=== PATIENT | male | born 1950 | race Caucasian/White ===

== ENCOUNTER 2021-04-14 14:12 | Outpatient (CLI) | payer MEDICARE, BC, SELFPAY ==
--- NOTE | ~2021-04-14 | XR_ITS ---
XR abdomen/kub 1V 04/14/2021 14:29 Indication: Gross hematuria Procedure: KUB Comparison: No prior studies for comparison. Findings: Bowel gas pattern is nonobstructive. Moderate colonic fecal loading. Moderate lumbar spondy losis. There are degenerative changes of the hips. No suspicious calcifications to suggest nephrolith iasis. Impression: 1: No acute abdominal abnormality. Reviewed, dictated and finalized at location A. Impression: 1: No acute abdominal abnormality.
--- NOTE | ~2021-04-14 | CT_ITS ---
EXAMINATION: CT abdomen pelvis wo/w con DATE: 04/14/2021 15:22 INDICATION: Gross hematuria. Upper abdominal pain. TECHNIQUE: Computed tomography (CT) of the abdomen and pelvis was performed without and with intraven ous contrast using a total of 130 mL Omnipaque-350 intravenous contrast with a double-bolus technique for simultaneous opacification of the renal parenchyma and renal collecting system. Automated exposu re control and iterative reconstruction technique were employed. The dose-length product was 2284.14 mGy-cm. COMPARISON: CT abdomen 05/04/2006 FINDINGS: The visualized portions of the lung bases demonstrate mild atelectasis. A calcified right lung nodule is consistent with old granulomatous disease. No pleural effusion. The heart size is normal. No alexey cardial effusion. There are coronary artery calcifications. The liver, gallbladder, pancreas, and adr enal glands are normal. Calcifications in the spleen are consistent with old granulomatous disease. T here are cysts in the kidneys measuring up to 5.8 cm on the left. There is a 3 mm stone in right kidn ey. The right ureter is not well opacified distally, but is normal. The left ureter is well opacified and is normal. The prostate is moderately enlarged. There is diffuse bladder wall thickening with so me areas of nodularity. At the left posterior aspect of the bladder, there is a 4.5 x 3.7 cm frond-li ke mass. There is a right inguinal hernia containing fat. There are no pathologically enlarged lymph nodes. There is no free intraperitoneal fluid. There is severe lumbar spondylosis and mild thoracic s pondylosis. IMPRESSION: 1. Bladder mass, consistent with urothelial carcinoma. 2. 3 mm nonobstructing right kidney stone. Reviewed, dictated and finalized at location B.
[2021-04-14 15:02] LABS: Estimated Glomerular Filt Rate 37
== END 2021-04-14 14:13 | disposition home or self-care (01) ==
PROVIDERS: PCP Family Medicine; Visit Provider Nurse Practitioner Adult Health
DX: R31.0 Gross hematuria (principal); N20.0 Calculus of kidney
CPT/HCPCS: 74018; 74178; Q9967

== ENCOUNTER 2021-06-05 01:56 | Day surgery (SDC) | payer MEDICARE, BC, SELFPAY ==
--- NOTE | 2021-06-02 08:41 | P.HP_ITS ---
History of Present Illness History of Present Illness Consent: Risks, benefits, and alternatives have been discussed and questions answered. Patient agrees to proceed with procedure. Chief complaint: large bladder tumors Narrative: Ryan Delgado is a 70 year old male with a history of smoking who recently presented with gross hematuria. CT scan of the abdomen and pelvis with without contrast showed small obstructing bilateral kidney stones and simple renal cysts, without other significant upper tract findings. Both cystoscopy and CT scan, however, showed large neoplasm in the left posterior bladder wall. After discussion of options he elected to proceed with TURP. He is aware the risks including, but not limited to, adverse cardiopulmonary events, postoperative bleeding, compromise to the integrity of his bladder with urinary extravasation and failure to completely resect the neoplasm. Review of Systems Cardiovascular: Cardiovascular: Denies chest pain, Denies lightheadedness, Denies palpitations and Denies dyspnea Respiratory: Respiratory: Denies dyspnea Gastrointestinal: Gastrointestinal: Denies diarrhea, Denies nausea and Denies vomiting Genitourinary: Genitourinary: Denies hematuria and Denies dysuria Endocrine: Endocrine: Denies palpitations [facility] Family History Family History Father Acute myocardial infarction, Onset Age: 57 Patient's father is Mother Patient's mother is Social History Social History Smoking status: Never smoker Second hand tobacco smoke exposure: No Alcohol intake: never Meds Home Medications and Allergies Allergies Allergy/AdvReac Type Severity Reaction Status Date / Time Sulfa (Sulfonamide Allergy Mild Unknown Verified 09/29/18 10:28 Antibiotics) sulfanilamide Allergy Unknown Verified 07/11/10 17:55 sulfur dioxide Allergy Unknown Verified 05/18/13 13:57 Exam Const: General: no acute distress Resp: Effort & Inspection: normal respiratory effort GI: Inspection: non-distended GI Palp: No abdominal tenderness and No Guarding due to palpation present (GI) Auscultation: normal bowel sounds Assessment and Plan Assessment and plan (1) Cancer of overlapping sites of bladder: Code(s): C67.8 - Malignant neoplasm of overlapping sites of bladder Status: Acute Assessment and Plan: * TURBT
[2021-06-02 10:50] VITALS: BMI 30.4
[2021-06-05] VITALS (8 sets, daily range): BP systolic 134–161; BP diastolic 75–87; PULSE 61–70; RESP 15–20; TEMP 36.1–36.3; O2SAT 94–100; BMI 29.9
--- NOTE | 2021-06-05 06:01 | WPDHPUPDATE1 ---
History and Physical Update Update Date/Time: 06/05/21 06:01 History and Physical has been reviewed, including an updated exam of the patient. There are NO changes in the patient's condition. Risks, benefits, and alternatives have been discussed and questions answered. Patient agrees to proceed with procedure.
--- NOTE | 2021-06-05 08:30 | WPDANESEPPF ---
Anes - Initial Pre Proc Eval Procedure: Operation Date: 06/05/21 10:00 Proposed Procedures p Trans Urethral Resection Bladder Tumor - Jt Moreira MD Date/Time: 06/05/21 08:30 Surgeon: Jt Moreira MD Pre Op Diagnosis: large bladder tumors Patient Data Age: 70 Gender: M Height: 1.83 m Weight: 100 kg Last Vital Signs Temp 36.1 C L 06/05/21 08:23 Pulse 69 06/05/21 08:23 Resp 18 06/05/21 08:23 BP 150/87 H 06/05/21 08:23 Pulse Ox 98 06/05/21 08:23 Allergies Allergy/AdvReac Type Severity Reaction Status Date / Time Sulfa (Sulfonamide Allergy Unknown Unknown Verified 06/05/21 08:15 Antibiotics) Home Medications Medication Instructions Recorded Confirmed Type baclofen 10 mg PO HS 06/02/21 06/05/21 History duloxetine 40 mg PO QAM 06/02/21 06/05/21 History finasteride 5 mg PO DAILY 06/02/21 06/05/21 History meloxicam 7.5 mg PO DAILY PRN 06/02/21 06/05/21 History omeprazole 20 mg PO QAM 06/02/21 06/05/21 History tamsulosin 0.4 mg PO HS 06/02/21 06/05/21 History tramadol 50 mg PO Q6-8H PRN 06/02/21 06/05/21 History Patient hx anesthesia problems: none Family hx anesthesia problems: none PMFSH Past Medical History Medical History (Updated 06/05/21 @ 08:30 by Ede Us MD) Obesity Family History Family History Father Acute myocardial infarction, Onset Age: 57 Patient's father is Mother Patient's mother is Social History Social History Smoking status: Never smoker Second hand tobacco smoke exposure: No Alcohol intake: never Substance use: never Living arrangements: with family Additional living arrangements comments: [facility] Spiritual care concerns: No Anes - Eval Final PreProcedure Day of Procedure 06/05/21 08:30 Patient weight: obese Heart: regular rate and rhythm Lungs: clear to auscultation Airway: Mallampati scale class II Neurological: alert and oriented Last oral intake: >/= 8 hours ASA classification: II Emergent: no Anesthetic plan: proceed Anesthesia type and monitoring: general LMA and standard monitoring Informed Consent: The patient's anesthetic plan and its attendant risks and benefits were discussed with the patient/family/POA. Questions were solicited and answers provided to the satisfaction of the patient/family/POA.
[2021-06-05] MEDS: LACTATED RINGERS 1,000 ML 30 ML IV CONT (08:46)
[2021-06-05] MEDS: ceFAZolin 2 GM/D5W 50 ML 2 GM/50 ML BAG IVPB (09:49)
--- NOTE | 2021-06-05 10:43 | W.PM.PROC2 ---
Procedure Note - Detailed Date of Procedure 06/05/21 Pre-op Diagnosis Large bladder tumor Post-op Diagnosis same Procedure Performed TURBT (large) Surgeon Jt Moreira MD [employer] None Anesthesia general Indications Hematuria, bladder tumor Findings Large (6-7cm), pedunculated bladder tumor left post.-lat. wall Description of Procedure Patient is brought to the operative suite was prepped and draped in routine sterile fashion while in a dorsal lithotomy position after the uneventful induction of a general endotracheal anesthetic. Cystoscopy is undertaken with a 24 F rigid cystoscope. His bladder is notable for this large, somewhat papillary yet somewhat atypical neoplasm in the left posterior lateral bladder wall. It does appear to be pedunculated. Had to a fairly extensive resection in order to identify the base of this lesion and confirm that it did appear to be pedunculated. With was section I was able to identify left ureteral orifice and avoid cautery in that position. The lesion was resected in its entirety. The remainder of the bladder was endoscopically normal opted not to do random biopsies. Base and periphery were cauterized, again taking care to avoid cardia around the left ureteral orifice. Because I can't be certain this is a urothelial neoplasm I not to do postoperative chemotherapy installation into the bladder. Resectoscope was removed. The patient tolerated the procedure well was taken recovery room good condition. Estimated Blood Loss 20 Drains No Packing No Pathology yes Complications No immediate complications Condition stable Disposition PACU
--- NOTE | 2021-06-05 11:14 | SUR.PHASEI ---
Simple mask removed at 1113.
== END 2021-06-05 12:30 | disposition home or self-care (01) ==
PROVIDERS: PCP Family Medicine; Visit Provider Urology
PROC: 0TBB8ZZ Excision of Bladder, Via Natural or Artificial Opening Endoscopic (ICD-10-PCS; CPT 52240; principal; 2021-06-05 10:00)
DX: C67.8 Malignant neoplasm of overlapping sites of bladder (principal); E66.9 Obesity, unspecified; Z68.29 Body mass index [BMI] 29.0-29.9, adult
CPT/HCPCS: 52240; 88305; A9270; J0690; J1100; J2405; J2704; J3010; J7120

== ENCOUNTER 2021-08-05 14:04 | Outpatient (CLI) | payer MEDICARE, BC, SELFPAY ==
[2021-08-05 15:13] LABS: Add Urine Microscopic? YES; Amorphous Sediment Urine Few; Appearance Urine Clear (Clear); Bacteria Urine Trace /hpf; Bilirubin Urine Negative (Negative); Blood Urine 1+ (Negative); Color Urine Yellow (Yellow); Glucose Urine UA Negative (Negative); Ketones Urine Negative (Negative); Leukocyte Esterase Ur 3+ LEU/UL (Negative); Mucus Urine Rare /lpf; Nitrate Urine Positive (Negative); Protein Urine Negative (Negative); Squamous Epithelial Cell Urine Rare /hpf (Few); Urobilinogen Urine Negative mg/dL (<2.0); WBC Urine 31-50 /hpf
== END 2021-08-05 14:05 | disposition home or self-care (01) ==
PROVIDERS: PCP Family Medicine
DX: R82.90 Unspecified abnormal findings in urine (principal)
CPT/HCPCS: 81001; 87077; 87086; 87186

== ENCOUNTER 2021-09-13 11:16 | Inpatient (IN) | payer MEDICARE, BC, SELFPAY ==
[2021-09-13] VITALS (10 sets, daily range): BP systolic 140–163; BP diastolic 54–85; PULSE 77–106; RESP 18–20; TEMP 36.4–39.1; O2SAT 96–99
--- NOTE | ~2021-09-13 | US_ITS ---
EXAMINATION: US renal BI DATE: 09/15/2021 09:39 INDICATION: Acute kidney injury. Pyelonephritis. TECHNIQUE: Multiple ultrasound grayscale images of the kidneys were obtained. COMPARISON: CT abdomen and pelvis 09/13/2021 FINDINGS: The right kidney measures 11.0 x 4.7 x 5.3 cm. The left kidney measures 14.6 x 6.3 x 5.6 cm. The kidn eys demonstrate normal parenchymal echogenicity. There is a 6.4 cm cyst in left kidney. There is no h ydronephrosis. The bladder is normal. IMPRESSION: 1. Normal kidney sizes. No hydronephrosis. Reviewed, dictated and finalized at location A.
--- NOTE | ~2021-09-13 | XR_ITS ---
EXAMINATION: XR chest 2V DATE: 09/13/2021 13:32 INDICATION: Fever and weakness TECHNIQUE: Frontal and lateral views of the chest are obtained COMPARISON: 06/30/2016 FINDINGS: The lungs are free of acute opacities. There is no pleural effusion or pneumothorax. The ca rdiomediastinal silhouette is normal. There are bridging osteophytes at multiple levels in the spine, consistent with diffuse idiopathic skeletal hyperostosis (DISH). IMPRESSION: 1. No acute cardiopulmonary abnormality. Reviewed, dictated and finalized at location A.
--- NOTE | ~2021-09-13 | CT_ITS ---
EXAMINATION: CT abdomen pelvis w con DATE: 09/13/2021 15:27 INDICATION: Upper abdominal pain. Weakness. TECHNIQUE: Computed tomography (CT) of the abdomen and pelvis was performed with 100 cc Omnipaque 350 intravenous contrast. Automated exposure control and iterative reconstruction technique were employe d. Exam dose: 1165.55 mGy-cm total exam DLP. COMPARISON: 04/14/2021 CT abdomen pelvis FINDINGS: Normal heart size. Coronary artery calcifications. No pericardial or pleural effusion. The lung bases are clear. There is nonspecific circumferential soft tissue thickening of the distal esophagus, possibly due to esophagitis. The liver, gallbladder, bile ducts, spleen Normal morphology of the adrenal glands. A new finding since 04/14/2021 is patchy diminished contrast enhancement of scattered areas throughout the left kidney, suggesting left pyelonephritis. There is some contrast enhancement of the left marta l pelvis further supporting possible infection. Large irregular mass of the urinary bladder noted on 04/14/2021 is not currently evident. There is pro state enlargement and moderate diffuse thickening of the urinary bladder wall. Normal appendix. Diverticulosis of the sigmoid colon, mild; no evidence of diverticulitis. No bowel obstruction, bowel wall thickening, pneumatosis or intraperitoneal free air is detected. Normal caliber of the abdominal aorta. No intraperitoneal or retroperitoneal or pelvic mass lesion or adenopathy or ascites is detected. 6.3 cm lower pole left renal cyst. Occasional smaller bilateral renal cysts. Diffuse idiopathic skeletal hyperostosis of the thoracic spine. There is moderate multilevel degenera tive disc disease lumbar spine and degenerative change at the apophyseal joints. Bilateral hip osteoa rthritis. Probable old left superior pubic fracture deformity. IMPRESSION: Patchy diminished contrast enhancement of the left kidney suggesting left pyelonephritis Contrast enhancement of the left renal pelvic wall suggesting infection/inflammation 6.3 cm lower pole left renal cyst, occasional smaller bilateral renal cysts. Diverticulosis of the sigmoid colon; no evidence of diverticulitis Reviewed, dictated and finalized at Location A. Reviewed, dictated and finalized at location A. IMPRESSION: Patchy diminished contrast enhancement of the left kidney suggesti ng left pyelonephritis Contrast enhancement of the left renal pelvic wall suggesting infection/inflamm ation 6.3 cm lower pole left renal cyst, occasional smaller bilateral renal cysts. Diverticulosis of the sigmoid colon; no evidence of diverticulitis
[2021-09-13 11:47] LABS: Basophils Percent Auto 0.2 % (0.2-1.2); Eosinophils Absolute Auto 0.3 K/mm3 (0-0.3); Eosinophils Percent Auto 2.2 % (0-4.4); Hemoglobin 13.3 g/dL (14.0-18.0); Immature Granulocyte Absolute 0.06 K/mm3 (0.00-0.031); Immature Granulocyte Percent A 0.4 % (0-0.5); Lymphocytes Absolute Auto 0.74 K/mm3 (0.9-3.2); Lymphocytes Percent Auto 5.4 % (18.3-44.2); Mean Corpuscular HGB Conc 34.1 g/dl (32-36); Mean Corpuscular Hemoglobin 31.9 pg (26-34); Mean Corpuscular Volume 93.5 fl (80-100); Mean Platelet Volume 9.3 fl (7.4-10.4); Monocytes Absolute Auto 2.1 K/mm3 (0.1-0.6); Monocytes Percent Auto 15.1 % (2.6-8.5); Neutrophils Absolute Auto 10.4 K/mm3 (1.3-6.7); Neutrophils Percent Auto 76.7 % (45.5-73.1); Platelet Count Result 194 k/mm3 (150-375); Red Blood Count 4.17 M/mm3 (4.6-6.20); Red Cell Distribution Width 12.5 % (11.5-14.5); White Blood Count 13.6 K/mm3 (4.5-10.0)
[2021-09-13 12:09] LABS: Alanine Aminotransferase 18 U/L (4-50); Alkaline Phosphatase 68 U/L (38-126); Anion Gap 8 mmol/L (8-16); Aspartate Amino Transferase 19 U/L (17-59); Blood Urea Nitrogen 18 mg/dL (9-20); Calcium 9.4 mg/dL (8.4-10.2); Carbon Dioxide 24 mmol/L (22-30); Chloride 106 mmol/L (98-107); Estimated CRCL calculation 47 ml/min; Estimated Glomerular Filt Rate 50; Glucose 118 mg/dL (65-110); Lipase 51 U/L (23-300); Sodium 138 mmol/L (137-145)
--- NOTE | 2021-09-13 12:28 | ECG_ITS ---
Measurements Intervals [place] Rate: 68 P: 36 W[place]: 240 QRS: 73 QRSD: 121 T: 104 QT: 358 QTc: 383 Interpretive Statements SINUS RHYTHM WITH FIRST DEGREE AV BLOCK INTRAVENTRICULAR CONDUCTION DELAY BORDERLINE T WAVE ABNORMALITY- HIGH LATERAL LEADS ABNORMAL ECG Electronically Signed On 09-13-2021 23:36:40 CDT by David Murrell D.O.
[2021-09-13] MEDS: ONDANSETRON INJ 4 MG/2 ML VIAL IV PUSH (13:02)
[2021-09-13] MEDS: LACTATED RINGERS 1,000 ML 999 ML IV CONT (13:02)
[2021-09-13 13:08] LABS: Lactic Acid Reflex 1.4 mmol/L (0.7-2.1); Magnesium 1.9 mg/dL (1.6-2.3)
[2021-09-13 13:19] LABS: Add Urine Microscopic? YES; Appearance Urine Clear (Clear); Bilirubin Urine Negative (Negative); Blood Urine 1+ (Negative); Color Urine Yellow (Yellow); Glucose Urine UA Negative (Negative); Ketones Urine Negative (Negative); Leukocyte Esterase Ur Negative LEU/UL (Negative); Mucus Urine Rare /lpf; Nitrate Urine Negative (Negative); Protein Urine 2+ mg/dL (Negative); Specific Grav Ur 1.019 (1.001-1.035); Squamous Epithelial Cell Urine Rare /hpf (Few); Urobilinogen Urine Negative mg/dL (<2.0)
[2021-09-13 13:20] LABS: INR 1.1; Prothrombin Time 14.2 Seconds (11.1-14.7); Troponin I < 0.012 ng/mL (0.000-0.034)
[2021-09-13 13:28] LABS: Partial Thromboplastin Time 27.5 SECONDS (22.3-36.8)
--- NOTE | 2021-09-13 13:46 | ED.GENADULT ---
HPI - General Adult General Chief complaint: Abdominal Pain Stated complaint: abd pain Time Seen by Provider: 09/13/21 11:26 Source: patient and family Mode of arrival: ambulatory Limitations: no limitations History of Present Illness HPI narrative: This is a 70 year old male who presents for evaluation of weakness, epigastric abdominal pain. Last night started having sweats and chills. He reports having temperature of 100.2 F at home. He later developed dull epigastric discomfort that has been constant. He reports having left side abdominal for several months. His is being evaluated by his PCP for his left side pain. He is being referred to GI. This epigastric pain is new. He denies associated nausea, vomiting or diarrhea. He has to self catheterize himself but he reports his urine has been clear. He was treated for a UTI 5 weeks ago. Patient had back surgery performed 20 days ago and he was seen by his surgeon on Wednesday. He had his savita removed at that time . He only has minimal pain to his back and he denies incision drainage. Related Data Home Medications Medication Instructions Recorded Confirmed baclofen mg 09/13/21 meloxicam 09/13/21 tamsulosin mg PO 09/13/21 tramadol mg 09/13/21 Allergies Allergy/AdvReac Type Severity Reaction Status Date / Time Sulfa (Sulfonamide Allergy Unknown Verified 09/13/21 11:28 Antibiotics) Review of Systems Review of Systems: All systems reviewed & are unremarkable except as noted in HPI and below Constitutional: Constitutional: Reports chills, Reports fatigue and Reports fever(s) Cardiovascular: Cardiovascular: Denies chest pain Respiratory: Respiratory: Denies cough and Denies dyspnea Gastrointestinal: Gastrointestinal: Reports abdominal pain, Denies diarrhea, Reports nausea and Denies vomiting Genitourinary: Genitourinary: Denies hematuria, Denies dysuria and Denies urinary frequency Musculoskeletal: Musculoskeletal: Denies back pain Neurologic: Reports weakness PMFSH Past Medical History Medical History (Updated 09/13/21 @ 18:58 by Nataliia Mike MD) Bladder cancer Urinary retention Surgical History Surgical History (Updated 09/13/21 @ 13:47 by Nataliia Mike MD) History of back surgery Exam Const: General: no acute distress and alert Orientation/consciousness: patient oriented x3 HENMT: Head: normocephalic and atraumatic Face and sinus: face symmetric Mouth: Yes Normal oral and palatal mucosa present, Yes lip normal and Yes tongue normal Throat: posterior oropharynx normal, tonsils normal and uvula midline Eyes: Pupils: Equal, round and reactive pupils present EOM: EOMs intact bilaterally Resp: Effort & Inspection: normal respiratory effort and no retractions Auscultation: clear to auscultation bilaterally Cardio: Rate: regular rate Rhythm: regular rhythm Heart sounds: no murmurs GI: GI Palp: Yes Soft to palpation, No Tenderness to palpation present (GI) and No Guarding due to palpation present (GI) Auscultation: normal bowel sounds Skin: General skin exam: normal color Rashes: no rashes Neuro: General: patient oriented x3, moves all extremities and CN's II-XI intact bilaterally Extrem: General: normal to inspection Psych: Mental Status: mental status grossly normal Affect: normal affect Course Reevaluation(s) Reevaluation #1: I discussed with patient that CT is showing pyelonephritis . He is weak and he had to be assisted out of bathroom to his bed. Patient will be admitted over night for IV hydration and IV antibiotics. His would like him tested for covid. Date: 09/13/21 Time: 17:00 Consultations Consultation #1: I discussed with Kaur Harding case and she accepts patient to service for pyelonephritis. Date: 09/13/21 Time: 17:50 Vital Signs Vital signs: Vital Signs Temperature 97.5 F L 09/13/21 11:24 Pulse Rate 97 09/13/21 11:24 Respiratory Rate 20 09/13/21 11:24 Blood Pressur
[2021-09-13] MEDS: SODIUM CHLORIDE 0.9% IV 1,000 ML 125 ML IV CONT (19:31)
--- NOTE | 2021-09-13 23:13 | ADMGEN ---
This patient, Ryan Delgado, was admitted to [facility] Surg Room 310- at 1915. Patient/family oriented to hospital policies and general routines including ID bracelet, bed and alarms, visiting hours, pain management, procedures, bathroom and other care routines, personal items, smoking policy, room service/diet, and visiting hours. Information on how to activate the Rapid Response Team has been discussed. Patient/Family are encouraged to report perceived risks to care and to ask questions if they do not understand what they are told or what they should do.
--- NOTE | 2021-09-13 23:39 | PM.IMHP ---
H&P: HPI History of Present Illness Date/Time: 09/13/21 23:39 this is a 70-year-old male patient who came in today because of some generalized weakness specially to his lower extremities, epigastric abdominal pain. He was also complaining of some left flank pain. The patient was having some diaphoresis and chills. He had a T-max of 100.2? home. The patient is having some dull epigastric discomfort as well. The patient has been complaining of some left-sided abdominal pain for several months. The patient was treated for UTI about 5 weeks ago. Patient had back surgery performed 20 days ago and was followed up with his surgeon who removed his savita on Wednesday. The patient has Steri-Strips his lower back and appears to be without Infectious Disease. The patient has very little back pain and denies any incisional drainage. The area only has Steri-Strips and appears to be well approximated. The the gastric pain is new. He denied any nausea vomiting or diarrhea. The patient does self catheterization but reports that his urine is clear. The patient has had a history of having bladder cancer with surgery in the past. Patient's CT of his abdomen and pelvis was read as the following Patchy diminished contrast enhancement of the left kidney suggesting left pyelonephritis Contrast enhancement of the left renal pelvic wall suggesting infection/inflammation 6.3 cm lower pole left renal cyst, occasional smaller bilateral renal cysts. The patient was started on Rocephin with blood cultures pending. He was started on IV fluids, Zofran and Rocephin in the emergency room. His white count was noted to be 13.6. His H&H 13.3 and 39.0. His creatinine is 1.0. Glucose 118. Magnesium 1.9. Troponin negative. Per patient and 's request a COVID test was performed and is pending. The patient has been fully vaccinated and also had COVID-19 on 09/20/2020. The patient is being admitted on 09/13/2021 under observation status. Chief Complaint: Weakness Review of Systems Review of Systems: All systems reviewed & are unremarkable except as noted in HPI and below Constitutional: Constitutional: Reports as per HPI and Reports no additional constitutional complaints Eyes: Eyes: Reports as per HPI and Reports no additional eye complaints ENT: Reports system reviewed and no additional complaints, except as documented and Reports Normal hearing present Cardiovascular: Cardiovascular: Reports no additional cardiovascular complaints Respiratory: Respiratory: Reports no additional respiratory complaints and Reports no additional respiratory complaints Gastrointestinal: Gastrointestinal: Reports as per HPI and Reports no additional gastrointestinal complaints Musculoskeletal: Musculoskeletal: Reports no additional musculoskeletal complaints Integumentary/Breasts: Skin/Breast: Reports system reviewed and no additional complaints, except as docu and Reports as per HPI Neurologic: Reports system reviewed and no additional complaints, except as documented, Reports as per HPI and Reports Normal hearing present Psychiatric: Psychiatric: Reports no additional psychiatric complaints and Reports as per HPI Endocrine: Endocrine: Reports no additional endocrine complaints Hematologic/Lymphatic: Hematologic/Lymphatic: Reports no additional hematologic/lymphatic complaints Allergic/Immunologic: Allergic/Immunologic: Reports no additional allergic/immunologic complaints [facility] Past Medical History Medical History (Updated 09/14/21 @ 00:00 by Kaur Harding NP) Bladder cancer Requiring excision of tumor Urinary retention Surgical History Surgical History (Updated 09/13/21 @ 23:46 by Kaur Harding NP) History of back surgery X2 History of bladder surgery Excision of bladder tumor Family History Family History (Updated 09/13/21 @ 23:47 by Kaur Harding NP) Unknown Family history not known due to adoption Other Unknown family medical history
[2021-09-14] VITALS (14 sets, daily range): BP systolic 103–124; BP diastolic 43–63; PULSE 60–102; RESP 18–20; TEMP 35.6–39.4; O2SAT 94–100
[2021-09-14] MEDS: IBUPROFEN IV 800 MG/200 ML 800 MG/200 ML BAG 400 MG IVPB (00:05)
[2021-09-14] MEDS: SODIUM CHLORIDE 0.9% IV 1,000 ML 125 ML IV CONT ×2 (04:53→13:06)
[2021-09-14 06:34] LABS: Basophils Absolute Auto 0.1 K/mm3 (0.0-0.1); Basophils Percent Auto 0.3 % (0.2-1.2); Eosinophils Percent Auto 0.2 % (0-4.4); Hematocrit 36.1 % (42.0-52.0); Hemoglobin 11.8 g/dL (14.0-18.0); Immature Granulocyte Absolute 0.19 K/mm3 (0.00-0.031); Lymphocytes Absolute Auto 0.85 K/mm3 (0.9-3.2); Lymphocytes Percent Auto 4.3 % (18.3-44.2); Mean Corpuscular HGB Conc 32.7 g/dl (32-36); Mean Corpuscular Hemoglobin 31.4 pg (26-34); Mean Platelet Volume 9.9 fl (7.4-10.4); Monocytes Absolute Auto 2.7 K/mm3 (0.1-0.6); Monocytes Percent Auto 13.8 % (2.6-8.5); Neutrophils Absolute Auto 15.9 K/mm3 (1.3-6.7); Neutrophils Percent Auto 80.4 % (45.5-73.1); Platelet Count Result 148 k/mm3 (150-375); Red Blood Count 3.76 M/mm3 (4.6-6.20); Red Cell Distribution Width 12.8 % (11.5-14.5); White Blood Count 19.8 K/mm3 (4.5-10.0)
[2021-09-14 06:45] LABS: Alanine Aminotransferase 17 U/L (4-50); Albumin Level 3.4 g/dL (3.5-5.1); Alkaline Phosphatase 57 U/L (38-126); Anion Gap 9 mmol/L (8-16); Aspartate Amino Transferase 24 U/L (17-59); Bilirubin,Total 0.8 mg/dL (0.2-1.3); Blood Urea Nitrogen 19 mg/dL (9-20); Calcium 8.5 mg/dL (8.4-10.2); Carbon Dioxide 26 mmol/L (22-30); Chloride 107 mmol/L (98-107); Estimated CRCL calculation 39 ml/min; Estimated Glomerular Filt Rate 40; Glucose 115 mg/dL (65-110); Potassium 4.3 mmol/L (3.4-5.0); Sodium 142 mmol/L (137-145)
[2021-09-14] MEDS: ENOXAPARIN 40 MG/0.4 ML SYRINGE SUB-Q (09:29)
[2021-09-14] MEDS: PANTOPRAZOLE SODIUM IV 40 MG VIAL IV PUSH (09:29)
--- NOTE | 2021-09-14 13:14 | P.PNIM_ITS ---
Progress Note: A&P Assessment and Plan (1) Sepsis: Code(s): A41.9 - Sepsis, unspecified organism Status: Acute Assessment and Plan: Patient met criteria for sepsis on presentation with fever (Tmax 102.4?), tach ycardia, and leukocytosis. Source of infection felt to be pyelonephritis. * Continue with empiric IV Rocephin * Urine and blood cultures pending * Monitor vital signs, intake and output, and labs closely * Remains afebrile today and tachycardia resolved. White blood cell count has increased, however he has had clinical improvement without fevers, therefore will continue to monitor this closely while awaiting cultures * Continue antipyretics as needed. Continue with IV fluids due to persistent sweats (2) Acute pyelonephritis: Code(s): N10 - Acute pyelonephritis Status: Acute Assessment and Plan: CT abdomen/pelvis showed patchy diminished contrast enhancement of the left kidney suggestive of left pyelonephritis * Continue IV Rocephin * Urine cultures pending and will await results * Analgesics and antiemetics available as needed (3) Urinary retention: Code(s): R33.9 - Retention of urine, unspecified Status: Chronic Assessment and Plan: Secondary to surgical resection of bladder tumor. He is established with Dr. Moreira * He performs intermittent self-catheterization * Monitor intake and output (4) Acute kidney injury: Code(s): N17.9 - Acute kidney failure, unspecified Status: Acute Assessment and Plan: Creatinine elevated on presentation at 1.4 and has increased to 1.7 today * I suspect this is prerenal due to dehydration from fever/insensible losses * Continue with IV fluid rehydration * Monitor renal function closely. Avoid nephrotoxic agents. He did receive 1 dose of ibuprofen due to fever. Avoid further NSAIDs (5) Weakness: Code(s): R53.1 - Weakness Status: Acute Assessment and Plan: Likely related to recent back surgery and worsened by acute infection. * Appreciate PT and OT evals (6) Epigastric discomfort: Code(s): R10.13 - Epigastric pain Status: Acute Assessment and Plan: Ongoing for several months and he is in the process of being referred to GI. No changes at this time. * Continue PPI * CT of the abdomen/pelvis showed no acute findings. Reviewed with Dr. Bauer via phone. * Lipase is within normal limits. * May have gastritis or ulcer. Avoid NSAIDs. Continue with GI referral on discharge. (7) Person under investigation for COVID-19: Code(s): Z20.822 - Contact with and (suspected) exposure to COVID-19 Status: Acute Assessment and Plan: Patient was tested for COVID-19 on presentation due to fevers. He has no respiratory symptoms and is not requiring supplemental oxygen. CXR is negative for any evidence of respiratory illness. He completed COVID-19 vaccination. COVID-19 would be unlikely based on overall clinical picture * Continue isolation precautions while awaiting results * He is not a candidate for COVID-19 specific treatment including dexamethasone or remdesivir as he has no oxygen requirements Subjective Date/time seen: 09/14/21 13:14 Interval history: Date of service: 09/14/2021 Ryan Delgado is a 70-year-old male with a history of bladder cancer with subsequent urinary retention who intermittently self catheterizes and recent back surgery about 3 weeks ago who is seen in follow-up for left-sided pyelonephr
--- NOTE | 2021-09-14 13:14 | PM.IMPN ---
Progress Note: A&P Assessment and Plan (1) Sepsis: Code(s): A41.9 - Sepsis, unspecified organism Status: Acute Assessment and Plan: Patient met criteria for sepsis on presentation with fever (Tmax 102.4?), tachycardia, and leukocytosis. Source of infection felt to be pyelonephritis. Continue with empiric IV Rocephin Urine and blood cultures pending Monitor vital signs, intake and output, and labs closely Remains afebrile today and tachycardia resolved. White blood cell count has increased, however he has had clinical improvement without fevers, therefore will continue to monitor this closely while awaiting cultures Continue antipyretics as needed. Continue with IV fluids due to persistent sweats (2) Acute pyelonephritis: Code(s): N10 - Acute pyelonephritis Status: Acute Assessment and Plan: CT abdomen/pelvis showed patchy diminished contrast enhancement of the left kidney suggestive of left pyelonephritis Continue IV Rocephin Urine cultures pending and will await results Analgesics and antiemetics available as needed (3) Urinary retention: Code(s): R33.9 - Retention of urine, unspecified Status: Chronic Assessment and Plan: Secondary to surgical resection of bladder tumor. He is established with Dr. Moreira He performs intermittent self-catheterization Monitor intake and output (4) Acute kidney injury: Code(s): N17.9 - Acute kidney failure, unspecified Status: Acute Assessment and Plan: Creatinine elevated on presentation at 1.4 and has increased to 1.7 today I suspect this is prerenal due to dehydration from fever/insensible losses Continue with IV fluid rehydration Monitor renal function closely. Avoid nephrotoxic agents. He did receive 1 dose of ibuprofen due to fever. Avoid further NSAIDs (5) Weakness: Code(s): R53.1 - Weakness Status: Acute Assessment and Plan: Likely related to recent back surgery and worsened by acute infection. Appreciate PT and OT evals (6) Epigastric discomfort: Code(s): R10.13 - Epigastric pain Status: Acute Assessment and Plan: Ongoing for several months and he is in the process of being referred to GI. No changes at this time. Continue PPI CT of the abdomen/pelvis showed no acute findings. Reviewed with Dr. Bauer via phone. Lipase is within normal limits. May have gastritis or ulcer. Avoid NSAIDs. Continue with GI referral on discharge. (7) Person under investigation for COVID-19: Code(s): Z20.822 - Contact with and (suspected) exposure to COVID-19 Status: Acute Assessment and Plan: Patient was tested for COVID-19 on presentation due to fevers. He has no respiratory symptoms and is not requiring supplemental oxygen. CXR is negative for any evidence of respiratory illness. He completed COVID-19 vaccination. COVID-19 would be unlikely based on overall clinical picture Continue isolation precautions while awaiting results He is not a candidate for COVID-19 specific treatment including dexamethasone or remdesivir as he has no oxygen requirements Subjective Date/time seen: 09/14/21 13:14 Interval history: Date of service: 09/14/2021 Ryan Delgado is a 70-year-old male with a history of bladder cancer with subsequent urinary retention who intermittently self catheterizes and recent back surgery about 3 weeks ago who is seen in follow-up for left-sided pyelonephritis. He is feeling better today overall. He still endorses chills and is having diffuse sweats to point where he is soaking his sheets. His nurse notes they had to change his linens two times last night. He self cathed this afternoon without difficulties. He endorses bilateral flank pain. He denies dysuria, hematuria, urgency, frequency. No back pain. He did have a loose stool yesterday. No nausea or vomiting. Denies dizziness or lightheadness. No weak
--- NOTE | 2021-09-14 17:24 | PM.EVENT ---
Event Note Event Note Event Note: I was notified of positive blood cultures by RN. Patient admitted on 09/13/2021 with fever; CT scan suggesting left pyelonephritis, he was appropriately started on Rocephin. Patient was febrile 102? F at presentation until 1:00 a.m. this morning. Patient has remained afebrile to 5:00 p.m. this afternoon when he started spiking fevers. Patient was treated with Tylenol and local coolling measures. In view of blood culture growing Gram-positive cocci in clusters in 1/2 media, history of patients self catheterizing- suggesting urinary tract obstruction-, will be switching IV antibiotic to vancomycin and imipenem.
[2021-09-14] MEDS: PANTOPRAZOLE 40 MG TABLET PO (21:34)
[2021-09-15] VITALS (9 sets, daily range): BP systolic 111–154; BP diastolic 62–72; PULSE 61–96; RESP 18–20; TEMP 35.8–37.8; O2SAT 68–100
[2021-09-15] MEDS: SODIUM CHLORIDE 0.9% IV 1,000 ML 125 ML IV CONT ×2 (02:32→13:06)
[2021-09-15] MEDS: ACETAMINOPHEN 325 MG TABLET 650 MG PO (02:35)
[2021-09-15 05:47] LABS: Basophils Percent Auto 0.3 % (0.2-1.2); Eosinophils Percent Auto 0.4 % (0-4.4); Hematocrit 30.9 % (42.0-52.0); Hemoglobin 10.3 g/dL (14.0-18.0); Immature Granulocyte Absolute 0.05 K/mm3 (0.00-0.031); Immature Granulocyte Percent A 0.5 % (0-0.5); Lymphocytes Percent Auto 12.3 % (18.3-44.2); Mean Corpuscular HGB Conc 33.3 g/dl (32-36); Mean Corpuscular Volume 93.1 fl (80-100); Mean Platelet Volume 9.9 fl (7.4-10.4); Monocytes Absolute Auto 1.5 K/mm3 (0.1-0.6); Monocytes Percent Auto 13.9 % (2.6-8.5); Neutrophils Absolute Auto 7.7 K/mm3 (1.3-6.7); Neutrophils Percent Auto 72.6 % (45.5-73.1); Platelet Count Result 158 k/mm3 (150-375); Red Blood Count 3.32 M/mm3 (4.6-6.20); Red Cell Distribution Width 12.8 % (11.5-14.5); White Blood Count 10.5 K/mm3 (4.5-10.0)
[2021-09-15 06:00] LABS: Lactic Acid Reflex 0.8 mmol/L (0.7-2.1)
[2021-09-15 06:01] LABS: Anion Gap 6 mmol/L (8-16); Blood Urea Nitrogen 18 mg/dL (9-20); Calcium 8.2 mg/dL (8.4-10.2); Carbon Dioxide 23 mmol/L (22-30); Chloride 109 mmol/L (98-107); Estimated CRCL calculation 41 ml/min; Estimated Glomerular Filt Rate 43; Glucose 126 mg/dL (65-110); Lactate Dehydrogenase 321 U/L (313-618); Magnesium 1.8 mg/dL (1.6-2.3); Potassium 3.6 mmol/L (3.4-5.0); Sodium 138 mmol/L (137-145)
[2021-09-15] MEDS: ERTAPENEM 1 GM/NS 50 ML 1 GM/50 ML BAG IVPB (10:18)
[2021-09-15] MEDS: ENOXAPARIN 40 MG/0.4 ML SYRINGE SUB-Q (10:18)
[2021-09-15] MEDS: PANTOPRAZOLE 40 MG TABLET PO ×2 (10:19→21:21)
--- NOTE | 2021-09-15 15:14 | P.PNIM_ITS ---
Progress Note: A&P Assessment and Plan (1) Sepsis: Code(s): A41.9 - Sepsis, unspecified organism Status: Acute Assessment and Plan: Patient met criteria for sepsis on presentation with fever (Tmax 103.0?), tach ycardia, and leukocytosis. Source of infection felt to be pyelonephritis. * Given persistent fevers, he was transition to IV vancomycin and Primaxin. Today, switched primaxin to ertapenem for once daily dosing in to ensure he tolerates this medication in the event he need extended antibiotic therapy. * He had a low-grade fever 100.0 early this morning around 2:30 a.m. but has otherwise been afebrile today. * Monitor vital signs, intake and output, and labs closely * Leukocytosis has essentially resolved * Continue antipyretics as needed (2) Acute pyelonephritis: Code(s): N10 - Acute pyelonephritis Status: Acute Assessment and Plan: CT abdomen/pelvis showed patchy diminished contrast enhancement of the left kidney suggestive of left pyelonephritis * Continue IV vancomycin and ertapenem * Urine culture with growth of mixed august suggesting probable contamination. * He is at risk for infection with multidrug resistant organisms given his intermittent self catheterization. Continue with broad-spectrum antibiotics for the time being * CT and renal ultrasound reviewed without evidence of abscess * Analgesics and antiemetics available as needed (3) Positive blood culture: Code(s): R78.81 - Bacteremia Status: Acute Assessment and Plan: One blood culture bottle with growth of coagulase-negative staphylococcus and 2nd bottle with growth of Gram-positive cocci in clusters * Continue with IV vancomycin and ertapenem while awaiting further identification (4) Urinary retention: Code(s): R33.9 - Retention of urine, unspecified Status: Chronic Assessment and Plan: Secondary to surgical resection of bladder tumor a couple months ago. He is established with Dr. Moreira * He performs intermittent self-catheterization * Monitor intake and output (5) Acute kidney injury: Code(s): N17.9 - Acute kidney failure, unspecified Status: Acute Assessment and Plan: Creatinine elevated on presentation up to 1.7. Remaining stable today * I suspect this is multifactorial. Likely related to acute infection and dehydration * Continue with IV fluid rehydration * Monitor renal function closely. Avoid nephrotoxic agents. He did receive 1 dose of ibuprofen due to fever. Avoid further NSAIDs * Renal ultrasound performed today with normal sized kidneys and no hydronephrosis. He does have a simple cyst of the left kidney. (6) Weakness: Code(s): R53.1 - Weakness Status: Acute Assessment and Plan: Likely related to recent back surgery and worsened by acute infection. * Appreciate PT and OT evals (7) Epigastric discomfort: Code(s): R10.13 - Epigastric pain Status: Acute Assessment and Plan: Left-sided epigastric pain ongoing for several months and he is in the process of being referred to GI. No changes at this time. * Continue PPI * CT of the abdomen/pelvis showed no acute findings. Reviewed with Dr. Bauer via phone. * Lipase is within normal limits. * Most likely gastritis or ulcer. Avoid NSAIDs. Continue with GI referral on discharge. Hemoglobin is stable and there is no evidence of GI bleeding. (8) Person under investigation for COVID-19: Code(s): Z20.822 -
--- NOTE | 2021-09-15 15:14 | PM.IMPN ---
Progress Note: A&P Assessment and Plan (1) Sepsis: Code(s): A41.9 - Sepsis, unspecified organism Status: Acute Assessment and Plan: Patient met criteria for sepsis on presentation with fever (Tmax 103.0?), tachycardia, and leukocytosis. Source of infection felt to be pyelonephritis. Given persistent fevers, he was transition to IV vancomycin and Primaxin. Today, switched primaxin to ertapenem for once daily dosing in to ensure he tolerates this medication in the event he need extended antibiotic therapy. He had a low-grade fever 100.0 early this morning around 2:30 a.m. but has otherwise been afebrile today. Monitor vital signs, intake and output, and labs closely Leukocytosis has essentially resolved Continue antipyretics as needed (2) Acute pyelonephritis: Code(s): N10 - Acute pyelonephritis Status: Acute Assessment and Plan: CT abdomen/pelvis showed patchy diminished contrast enhancement of the left kidney suggestive of left pyelonephritis Continue IV vancomycin and ertapenem Urine culture with growth of mixed august suggesting probable contamination. He is at risk for infection with multidrug resistant organisms given his intermittent self catheterization. Continue with broad-spectrum antibiotics for the time being CT and renal ultrasound reviewed without evidence of abscess Analgesics and antiemetics available as needed (3) Positive blood culture: Code(s): R78.81 - Bacteremia Status: Acute Assessment and Plan: One blood culture bottle with growth of coagulase-negative staphylococcus and 2nd bottle with growth of Gram-positive cocci in clusters Continue with IV vancomycin and ertapenem while awaiting further identification (4) Urinary retention: Code(s): R33.9 - Retention of urine, unspecified Status: Chronic Assessment and Plan: Secondary to surgical resection of bladder tumor a couple months ago. He is established with Dr. Moreira He performs intermittent self-catheterization Monitor intake and output (5) Acute kidney injury: Code(s): N17.9 - Acute kidney failure, unspecified Status: Acute Assessment and Plan: Creatinine elevated on presentation up to 1.7. Remaining stable today I suspect this is multifactorial. Likely related to acute infection and dehydration Continue with IV fluid rehydration Monitor renal function closely. Avoid nephrotoxic agents. He did receive 1 dose of ibuprofen due to fever. Avoid further NSAIDs Renal ultrasound performed today with normal sized kidneys and no hydronephrosis. He does have a simple cyst of the left kidney. (6) Weakness: Code(s): R53.1 - Weakness Status: Acute Assessment and Plan: Likely related to recent back surgery and worsened by acute infection. Appreciate PT and OT evals (7) Epigastric discomfort: Code(s): R10.13 - Epigastric pain Status: Acute Assessment and Plan: Left-sided epigastric pain ongoing for several months and he is in the process of being referred to GI. No changes at this time. Continue PPI CT of the abdomen/pelvis showed no acute findings. Reviewed with Dr. Bauer via phone. Lipase is within normal limits. Most likely gastritis or ulcer. Avoid NSAIDs. Continue with GI referral on discharge. Hemoglobin is stable and there is no evidence of GI bleeding. (8) Person under investigation for COVID-19: Code(s): Z20.822 - Contact with and (suspected) exposure to COVID-19 Status: Acute Assessment and Plan: Patient was tested for COVID-19 on presentation due to fevers. He has no respiratory symptoms and is not requiring supplemental oxygen. CXR is negative for any evidence of respiratory illness. He completed COVID-19 vaccination. COVID-19 would be unlikely based on overall clinical picture Continue isolation precautions while awaiting results He is
[2021-09-15 19:59] LABS: SARS-CoV-2 RNA PCR Negative
[2021-09-15] MEDS: SODIUM CHLORIDE 0.9% IV 1,000 ML 95 ML IV CONT (23:00)
[2021-09-16 06:00] VITALS: BP 142/68; PULSE 70; RESP 16; TEMP 37.1; O2SAT 95
[2021-09-16 06:10] LABS: Basophils Percent Auto 0.4 % (0.2-1.2); Eosinophils Absolute Auto 0.1 K/mm3 (0-0.3); Eosinophils Percent Auto 1.1 % (0-4.4); Hemoglobin 10.3 g/dL (14.0-18.0); Immature Granulocyte Absolute 0.04 K/mm3 (0.00-0.031); Immature Granulocyte Percent A 0.5 % (0-0.5); Lymphocytes Absolute Auto 1.47 K/mm3 (0.9-3.2); Lymphocytes Percent Auto 17.9 % (18.3-44.2); Mean Corpuscular HGB Conc 33.2 g/dl (32-36); Mean Corpuscular Hemoglobin 31.3 pg (26-34); Mean Corpuscular Volume 94.2 fl (80-100); Mean Platelet Volume 10.3 fl (7.4-10.4); Monocytes Absolute Auto 0.8 K/mm3 (0.1-0.6); Neutrophils Absolute Auto 5.8 K/mm3 (1.3-6.7); Neutrophils Percent Auto 70.1 % (45.5-73.1); Platelet Count Result 189 k/mm3 (150-375); Red Blood Count 3.29 M/mm3 (4.6-6.20); Red Cell Distribution Width 12.7 % (11.5-14.5); White Blood Count 8.2 K/mm3 (4.5-10.0)
[2021-09-16 06:27] LABS: Anion Gap 5 mmol/L (8-16); Blood Urea Nitrogen 16 mg/dL (9-20); Calcium 8.4 mg/dL (8.4-10.2); Carbon Dioxide 23 mmol/L (22-30); Chloride 112 mmol/L (98-107); Estimated CRCL calculation 47 ml/min; Estimated Glomerular Filt Rate 50; Glucose 102 mg/dL (65-110); Potassium 4.1 mmol/L (3.4-5.0); Sodium 140 mmol/L (137-145)
[2021-09-16 08:00] VITALS: BP 114/82; PULSE 60; RESP 16; TEMP 36; O2SAT 99
[2021-09-16] MEDS: PANTOPRAZOLE 40 MG TABLET PO ×2 (09:04→20:08)
[2021-09-16] MEDS: ENOXAPARIN 40 MG/0.4 ML SYRINGE SUB-Q (09:04)
[2021-09-16] MEDS: ERTAPENEM 1 GM/NS 50 ML 1 GM/50 ML BAG IVPB (09:04)
--- NOTE | 2021-09-16 13:57 | PCPTNOTE ---
attempted PT treatment about 1300- pt refused, reports just returned to bed from sitting in chair. And has been up to bathroom about every hour. Discussed pt with MARK Spangler, she confirmed that pt is up to bathroom often and walking into bathroom.
[2021-09-16 14:00] VITALS: BP 131/81; PULSE 60; RESP 22; TEMP 36; O2SAT 100
--- NOTE | 2021-09-16 15:09 | P.PNIM_ITS ---
Progress Note: A&P Assessment and Plan (1) Sepsis: Code(s): A41.9 - Sepsis, unspecified organism Status: Acute Assessment and Plan: Patient met criteria for sepsis on presentation with fever (Tmax 103.0?), tach ycardia, and leukocytosis. Source of infection is pyelonephritis. * Continue IV ertapenem. Discussed case with Infectious Disease specialist, Dr. Childers, who recommends discontinuation of IV vancomycin. * He has been afebrile >24 hours * Monitor vital signs, intake and output, and labs closely * Leukocytosis resolved * Continue antipyretics as needed (2) Acute pyelonephritis: Code(s): N10 - Acute pyelonephritis Status: Acute Assessment and Plan: CT abdomen/pelvis showed patchy diminished contrast enhancement of the left kidney suggestive of left pyelonephritis * Continue IV ertapenem * Urine culture with growth of mixed august suggesting probable contamination. * He is at risk for infection with multidrug resistant organisms given his intermittent self catheterization. * CT and renal ultrasound reviewed without evidence of abscess * Analgesics and antiemetics available as needed (3) Positive blood culture: Code(s): R78.81 - Bacteremia Status: Acute Assessment and Plan: 2/2 blood cultures with growth of coagulase-negative staphylococcus * Continue with IV ertapenem. As above, discussed with Dr. Childers who recommended discontinue vancomycin. * Repeat blood cultures collected today. Monitor * Will proceed with Infectious Disease consultation if repeat blood cultures positive (4) Urinary retention: Code(s): R33.9 - Retention of urine, unspecified Status: Chronic Assessment and Plan: Secondary to surgical resection of bladder tumor a couple months ago. He is established with Dr. Moreira * He performs intermittent self-catheterization * Monitor intake and output * No issues at this time (5) Acute kidney injury: Code(s): N17.9 - Acute kidney failure, unspecified Status: Acute Assessment and Plan: Creatinine elevated on presentation up to 1.7. Improving today down to 1.4. * I suspect this is multifactorial. Likely related to acute infection and dehydration * Discontinue IV fluids as he is tolerating p.o. intake and renal function is improving * Monitor renal function closely. Avoid nephrotoxic agents. He did receive 1 dose of ibuprofen due to fever. Avoid further NSAIDs * Renal ultrasound showed normal sized kidneys and no hydronephrosis. (6) Weakness: Code(s): R53.1 - Weakness Status: Acute Assessment and Plan: Likely related to recent back surgery and worsened by acute infection. * Appreciate PT and OT evals (7) Epigastric discomfort: Code(s): R10.13 - Epigastric pain Status: Acute Assessment and Plan: Left-sided epigastric pain ongoing for several months and he is in the process of being referred to GI. No changes at this time. * Continue PPI * Add Carafate * CT of the abdomen/pelvis showed no acute findings. Reviewed with Dr. Bauer via phone. * Lipase is within normal limits. * Most likely gastritis or ulcer. Avoid NSAIDs. Continue with GI referral on discharge. Hemoglobin is stable and there is no evidence of GI bleeding. * No signs/symptoms to suggest cardiac etiology. EKG reviewed. (8) Renal cyst: Code(s): N28.1 - Cyst of kidney, acquired Status: Acute Assessment and Plan: CT on
--- NOTE | 2021-09-16 15:09 | PM.IMPN ---
Progress Note: A&P Assessment and Plan (1) Sepsis: Code(s): A41.9 - Sepsis, unspecified organism Status: Acute Assessment and Plan: Patient met criteria for sepsis on presentation with fever (Tmax 103.0?), tachycardia, and leukocytosis. Source of infection is pyelonephritis. Continue IV ertapenem. Discussed case with Infectious Disease specialist, Dr. Childers, who recommends discontinuation of IV vancomycin. He has been afebrile >24 hours Monitor vital signs, intake and output, and labs closely Leukocytosis resolved Continue antipyretics as needed (2) Acute pyelonephritis: Code(s): N10 - Acute pyelonephritis Status: Acute Assessment and Plan: CT abdomen/pelvis showed patchy diminished contrast enhancement of the left kidney suggestive of left pyelonephritis Continue IV ertapenem Urine culture with growth of mixed august suggesting probable contamination. He is at risk for infection with multidrug resistant organisms given his intermittent self catheterization. CT and renal ultrasound reviewed without evidence of abscess Analgesics and antiemetics available as needed (3) Positive blood culture: Code(s): R78.81 - Bacteremia Status: Acute Assessment and Plan: 2/2 blood cultures with growth of coagulase-negative staphylococcus Continue with IV ertapenem. As above, discussed with Dr. Childers who recommended discontinue vancomycin. Repeat blood cultures collected today. Monitor Will proceed with Infectious Disease consultation if repeat blood cultures positive (4) Urinary retention: Code(s): R33.9 - Retention of urine, unspecified Status: Chronic Assessment and Plan: Secondary to surgical resection of bladder tumor a couple months ago. He is established with Dr. Moreira He performs intermittent self-catheterization Monitor intake and output No issues at this time (5) Acute kidney injury: Code(s): N17.9 - Acute kidney failure, unspecified Status: Acute Assessment and Plan: Creatinine elevated on presentation up to 1.7. Improving today down to 1.4. I suspect this is multifactorial. Likely related to acute infection and dehydration Discontinue IV fluids as he is tolerating p.o. intake and renal function is improving Monitor renal function closely. Avoid nephrotoxic agents. He did receive 1 dose of ibuprofen due to fever. Avoid further NSAIDs Renal ultrasound showed normal sized kidneys and no hydronephrosis. (6) Weakness: Code(s): R53.1 - Weakness Status: Acute Assessment and Plan: Likely related to recent back surgery and worsened by acute infection. Appreciate PT and OT evals (7) Epigastric discomfort: Code(s): R10.13 - Epigastric pain Status: Acute Assessment and Plan: Left-sided epigastric pain ongoing for several months and he is in the process of being referred to GI. No changes at this time. Continue PPI Add Carafate CT of the abdomen/pelvis showed no acute findings. Reviewed with Dr. Bauer via phone. Lipase is within normal limits. Most likely gastritis or ulcer. Avoid NSAIDs. Continue with GI referral on discharge. Hemoglobin is stable and there is no evidence of GI bleeding. No signs/symptoms to suggest cardiac etiology. EKG reviewed. (8) Renal cyst: Code(s): N28.1 - Cyst of kidney, acquired Status: Acute Assessment and Plan: CT on presentation showed 6.3 cm lower pole left renal cyst, also evident on renal ultrasound Patient and aware of history of left kidney cyst. Reports being monitored by PCP and last imaging was 5.5 cm. This has had interval enlargement and he will need to continue follow-up with PCP for further monitoring (9) COVID-19 ruled out by laboratory testing: Code(s): Z20.822 - Contact with and (suspected) exposure to COVID-19 Status: Acute Assessment an
[2021-09-16] MEDS: SODIUM CHLORIDE 0.9% IV 1,000 ML 95 ML IV CONT (15:59)
[2021-09-16] MEDS: SUCRALFATE 1 GM TABLET PO ×2 (17:46→20:09)
[2021-09-16] MEDS: SACCHAROMYCES BOULARDII 250 MG CAPSULE PO (17:46)
[2021-09-16 20:00] VITALS: PULSE 58; RESP 16; O2SAT 100
[2021-09-16 22:00] VITALS: BP 133/74; PULSE 58; RESP 16; TEMP 36.2; O2SAT 100
[2021-09-17] MEDS: SODIUM CHLORIDE 0.9% IV 1,000 ML 95 ML IV CONT (02:45)
[2021-09-17 06:00] VITALS: BP 145/70; PULSE 61; RESP 18; TEMP 36.3; O2SAT 100
[2021-09-17 06:13] LABS: Hematocrit 30.5 % (42.0-52.0); Hemoglobin 10.5 g/dL (14.0-18.0); Mean Corpuscular HGB Conc 34.4 g/dl (32-36); Mean Corpuscular Hemoglobin 31.7 pg (26-34); Mean Corpuscular Volume 92.1 fl (80-100); Mean Platelet Volume 9.8 fl (7.4-10.4); Platelet Count Result 216 k/mm3 (150-375); Red Blood Count 3.31 M/mm3 (4.6-6.20); Red Cell Distribution Width 12.6 % (11.5-14.5)
[2021-09-17] MEDS: SUCRALFATE 1 GM TABLET PO ×4 (06:16→21:41)
[2021-09-17 06:19] LABS: Anion Gap 6 mmol/L (8-16); Blood Urea Nitrogen 13 mg/dL (9-20); Calcium 8.6 mg/dL (8.4-10.2); Carbon Dioxide 24 mmol/L (22-30); Chloride 111 mmol/L (98-107); Estimated CRCL calculation 47 ml/min; Estimated Glomerular Filt Rate 50; Glucose 104 mg/dL (65-110); Potassium 3.6 mmol/L (3.4-5.0); Sodium 141 mmol/L (137-145)
[2021-09-17 08:00] VITALS: O2SAT 100
[2021-09-17] MEDS: SACCHAROMYCES BOULARDII 250 MG CAPSULE PO ×3 (08:03→17:22)
[2021-09-17] MEDS: ENOXAPARIN 40 MG/0.4 ML SYRINGE SUB-Q (08:03)
[2021-09-17] MEDS: PANTOPRAZOLE 40 MG TABLET PO ×2 (08:03→21:41)
[2021-09-17] MEDS: ERTAPENEM 1 GM/NS 50 ML 1 GM/50 ML BAG IVPB (08:19)
[2021-09-17 14:25] VITALS: BP 140/69; PULSE 66; RESP 24; TEMP 36.3; O2SAT 100
--- NOTE | 2021-09-17 15:26 | P.PNIM_ITS ---
Progress Note: A&P Assessment and Plan (1) Sepsis: Code(s): A41.9 - Sepsis, unspecified organism Status: Acute Assessment and Plan: Patient met criteria for sepsis on presentation with fever (Tmax 103.0?), tach ycardia, and leukocytosis. Source of infection is pyelonephritis. * Continue IV ertapenem. IV vancomycin discontinued on 09/16/2021 per ID recommendations. * He has been afebrile >48 hours * Monitor vital signs, intake and output, and labs closely * Leukocytosis resolved * Continue antipyretics as needed (2) Acute pyelonephritis: Code(s): N10 - Acute pyelonephritis Status: Acute Assessment and Plan: CT abdomen/pelvis showed patchy diminished contrast enhancement of the left kidney suggestive of left pyelonephritis * Continue IV ertapenem. Will plan for 2 weeks of antibiotic therapy, pending repeat blood cultures. Will need treatment through 09/29/2021. Will plan for midline catheter placement tomorrow * Urine culture with growth of mixed august suggesting probable contamination. * He is at risk for infection with multidrug resistant organisms given his intermittent self catheterization. * CT and renal ultrasound reviewed without evidence of abscess * Analgesics and antiemetics available as needed (3) Positive blood culture: Code(s): R78.81 - Bacteremia Status: Acute Assessment and Plan: 2/2 blood cultures with growth of coagulase-negative staphylococcus * Continue with IV ertapenem. * Repeat blood cultures collected 09/16 negative to date. Will continue to monitor. Hopeful discharge tomorrow if blood cultures remain negative at 48 hour francy. * Will proceed with Infectious Disease consultation if repeat blood cultures positive (4) Urinary retention: Code(s): R33.9 - Retention of urine, unspecified Status: Chronic Assessment and Plan: Secondary to surgical resection of bladder tumor a couple months ago. He is established with Dr. Moreira * He performs intermittent self-catheterization * Monitor intake and output * No issues at this time (5) Acute kidney injury: Code(s): N17.9 - Acute kidney failure, unspecified Status: Acute Assessment and Plan: Creatinine elevated on presentation up to 1.7. Improving today down to 1.4. * I suspect this is multifactorial. Likely related to acute infection and dehydration * IV fluids discontinued as he is tolerating p.o. intake and renal function has improved * Monitor renal function closely. Avoid nephrotoxic agents. He did receive 1 dose of ibuprofen due to fever. Avoid further NSAIDs * Renal ultrasound showed normal sized kidneys and no hydronephrosis. (6) Weakness: Code(s): R53.1 - Weakness Status: Acute Assessment and Plan: Likely related to recent back surgery and worsened by acute infection. * Appreciate PT and OT evals (7) Epigastric discomfort: Code(s): R10.13 - Epigastric pain Status: Acute Assessment and Plan: Left-sided epigastric pain ongoing for several months and he is in the process of being referred to GI. No changes at this time. * Continue PPI and Carafate * CT of the abdomen/pelvis showed no acute findings. Reviewed with Dr. Bauer via phone. * Lipase is within normal limits. * Most likely gastritis or ulcer. Avoid NSAIDs. Continue with GI referral on discharge. Hemoglobin is stable and there is no evidence of GI bleeding. * No signs/symptoms to suggest cardiac etiology. EKG re
--- NOTE | 2021-09-17 15:26 | PM.IMPN ---
Progress Note: A&P Assessment and Plan (1) Sepsis: Code(s): A41.9 - Sepsis, unspecified organism Status: Acute Assessment and Plan: Patient met criteria for sepsis on presentation with fever (Tmax 103.0?), tachycardia, and leukocytosis. Source of infection is pyelonephritis. Continue IV ertapenem. IV vancomycin discontinued on 09/16/2021 per ID recommendations. He has been afebrile >48 hours Monitor vital signs, intake and output, and labs closely Leukocytosis resolved Continue antipyretics as needed (2) Acute pyelonephritis: Code(s): N10 - Acute pyelonephritis Status: Acute Assessment and Plan: CT abdomen/pelvis showed patchy diminished contrast enhancement of the left kidney suggestive of left pyelonephritis Continue IV ertapenem. Will plan for 2 weeks of antibiotic therapy, pending repeat blood cultures. Will need treatment through 09/29/2021. Will plan for midline catheter placement tomorrow Urine culture with growth of mixed august suggesting probable contamination. He is at risk for infection with multidrug resistant organisms given his intermittent self catheterization. CT and renal ultrasound reviewed without evidence of abscess Analgesics and antiemetics available as needed (3) Positive blood culture: Code(s): R78.81 - Bacteremia Status: Acute Assessment and Plan: 2/2 blood cultures with growth of coagulase-negative staphylococcus Continue with IV ertapenem. Repeat blood cultures collected 09/16 negative to date. Will continue to monitor. Hopeful discharge tomorrow if blood cultures remain negative at 48 hour francy. Will proceed with Infectious Disease consultation if repeat blood cultures positive (4) Urinary retention: Code(s): R33.9 - Retention of urine, unspecified Status: Chronic Assessment and Plan: Secondary to surgical resection of bladder tumor a couple months ago. He is established with Dr. Moreira He performs intermittent self-catheterization Monitor intake and output No issues at this time (5) Acute kidney injury: Code(s): N17.9 - Acute kidney failure, unspecified Status: Acute Assessment and Plan: Creatinine elevated on presentation up to 1.7. Improving today down to 1.4. I suspect this is multifactorial. Likely related to acute infection and dehydration IV fluids discontinued as he is tolerating p.o. intake and renal function has improved Monitor renal function closely. Avoid nephrotoxic agents. He did receive 1 dose of ibuprofen due to fever. Avoid further NSAIDs Renal ultrasound showed normal sized kidneys and no hydronephrosis. (6) Weakness: Code(s): R53.1 - Weakness Status: Acute Assessment and Plan: Likely related to recent back surgery and worsened by acute infection. Appreciate PT and OT evals (7) Epigastric discomfort: Code(s): R10.13 - Epigastric pain Status: Acute Assessment and Plan: Left-sided epigastric pain ongoing for several months and he is in the process of being referred to GI. No changes at this time. Continue PPI and Carafate CT of the abdomen/pelvis showed no acute findings. Reviewed with Dr. Bauer via phone. Lipase is within normal limits. Most likely gastritis or ulcer. Avoid NSAIDs. Continue with GI referral on discharge. Hemoglobin is stable and there is no evidence of GI bleeding. No signs/symptoms to suggest cardiac etiology. EKG reviewed. (8) Renal cyst: Code(s): N28.1 - Cyst of kidney, acquired Status: Acute Assessment and Plan: CT on presentation showed 6.3 cm lower pole left renal cyst, also evident on renal ultrasound Patient and aware of history of left kidney cyst. Reports being monitored by PCP and last imaging was 5.5 cm. This has had interval enlargement and he will need to continue follow-up with PCP for further monitoring (9) COVID
--- NOTE | 2021-09-17 16:04 | PC.NURSE ---
On 09/17/21, the student, Brittany Angulo, provided care and completed [facility] documentation on this patient. I have reviewed the student's documentation and agree with the findings.
[2021-09-17 20:00] VITALS: PULSE 58; RESP 16; O2SAT 100
[2021-09-17 21:36] VITALS: O2SAT 97
[2021-09-17 22:00] VITALS: BP 141/70; PULSE 58; RESP 16; TEMP 36.6; O2SAT 100
[2021-09-18] MEDS: SUCRALFATE 1 GM TABLET PO ×2 (05:55→11:41)
[2021-09-18 06:00] VITALS: BP 124/60; PULSE 65; RESP 16; TEMP 36.5; O2SAT 99
[2021-09-18 06:21] LABS: Hematocrit 31.9 % (42.0-52.0); Hemoglobin 10.5 g/dL (14.0-18.0); Mean Corpuscular HGB Conc 32.9 g/dl (32-36); Mean Corpuscular Hemoglobin 30.7 pg (26-34); Mean Corpuscular Volume 93.3 fl (80-100); Mean Platelet Volume 9.8 fl (7.4-10.4); Platelet Count Result 238 k/mm3 (150-375); Red Blood Count 3.42 M/mm3 (4.6-6.20); Red Cell Distribution Width 12.6 % (11.5-14.5); White Blood Count 7.6 K/mm3 (4.5-10.0)
[2021-09-18 06:35] LABS: Anion Gap 7 mmol/L (8-16); Blood Urea Nitrogen 15 mg/dL (9-20); Calcium 8.6 mg/dL (8.4-10.2); Carbon Dioxide 26 mmol/L (22-30); Chloride 108 mmol/L (98-107); Estimated CRCL calculation 47 ml/min; Estimated Glomerular Filt Rate 50; Glucose 95 mg/dL (65-110); Potassium 3.8 mmol/L (3.4-5.0); Sodium 141 mmol/L (137-145)
[2021-09-18] MEDS: ENOXAPARIN 40 MG/0.4 ML SYRINGE SUB-Q (09:04)
[2021-09-18] MEDS: SACCHAROMYCES BOULARDII 250 MG CAPSULE PO ×2 (09:04→13:45)
[2021-09-18] MEDS: PANTOPRAZOLE 40 MG TABLET PO (09:04)
[2021-09-18] MEDS: LIDOCAINE HCL 1% LOCAL INJ 2 ML AMPUL 5 ML INFILTRATE (10:40)
[2021-09-18] MEDS: ERTAPENEM 1 GM/NS 50 ML 1 GM/50 ML BAG IVPB (11:41)
[2021-09-18] MEDS: SALINE LOCK FLUSH 10 ML IV PUSH (13:46)
[2021-09-18 14:00] VITALS: BP 127/81; PULSE 65; RESP 17; TEMP 36.3; O2SAT 100
--- NOTE | 2021-09-18 14:38 | PM.DS ---
DS: Admitting Diagnosis Discharge Date 09/18/2021 Admitting Diagnosis Pyelonephritis DS: Discharge Diagnosis Discharge Diagnosis (1) Sepsis: Code(s): A41.9 - Sepsis, unspecified organism Status: Acute Assessment and Plan: Patient met criteria for sepsis on presentation with fever (Tmax 103.0?), tachycardia, and leukocytosis. Source of infection is pyelonephritis. He was initially started on IV vancomycin and ertapenem for broad-spectrum coverage given his sepsis and risk for multi-drug resistant organisms. Pending culture information, I discussed the case with Infectious Disease specialist, Dr. hammond who recommended discontinuation of vancomycin. Recommended continue ertapenem to complete course of treatment for pyelonephritis. Will continue IV ertapenem to complete 14 days of antibiotic therapy. Midline catheter was initiated during hospitalization. Home healthcare was arranged for outpatient antibiotic infusions Sepsis resolved. He remained fever free with resolution of leukocytosis. (2) Acute pyelonephritis: Code(s): N10 - Acute pyelonephritis Status: Acute Assessment and Plan: CT abdomen/pelvis showed patchy diminished contrast enhancement of the left kidney suggestive of left pyelonephritis Continue IV ertapenem to complete 2 weeks of antibiotic therapy. Urine culture with growth of mixed august suggesting probable contamination. He is at risk for infection with multidrug resistant organisms given his intermittent self catheterization. CT and renal ultrasound reviewed without evidence of abscess (3) Positive blood culture: Code(s): R78.81 - Bacteremia Status: Acute Assessment and Plan: Initial blood cultures with growth of coagulase negative staphylococcus. Received IV antibiotic therapy. Repeat blood cultures collected on 09/16 are negative to date (5 days following collection at time of dictation). Final cultures will be monitored closely. (4) Urinary retention: Code(s): R33.9 - Retention of urine, unspecified Status: Chronic Assessment and Plan: Secondary to surgical resection of bladder tumor a couple months ago. He is established with Dr. Moreira. He performs intermittent self catheterization, unfortunately putting him at risk for infection. No issues with urinary retention during hospitalization. Continue outpatient follow-up with Urology. (5) Acute kidney injury: Code(s): N17.9 - Acute kidney failure, unspecified Status: Acute Assessment and Plan: Creatinine elevated on presentation up to 1.7. Level slowly improved and remained stable at 1.4. There are no prior labs available to establish baseline. A may have been related to acute infection and/or dehydration. He was rehydrated with IV fluids. NSAIDs avoided. Renal ultrasound showed normal size kidneys without hydronephrosis. Repeat BMP in 1 week to monitor kidney function (6) Weakness: Code(s): R53.1 - Weakness Status: Acute Assessment and Plan: Likely related to recent back surgery and worsened by acute infection. He was evaluated by PT/OT. He was able to ambulate independently using his walker. (7) Epigastric discomfort: Code(s): R10.13 - Epigastric pain Status: Acute Assessment and Plan: Left-sided epigastric pain ongoing for several months and he is in the process of being referred to GI. No changes during this hospital stay. CT of the abdomen/pelvis showed no acute findings. Lipase within normal limits. Most likely gastritis or ulcer. NSAIDs should be avoided. Continue with GI referral on discharge. Hemoglobin stable with no evidence of GI bleeding. Continue PPI, changed to Protonix twice per day (8) Renal cyst: Code(s): N28.1 - Cyst of kidney, acquired Status: Acute Assessment and Plan: CT on presentation showed 6.3 cm lower pole left renal cyst, also eviden
== END 2021-09-18 16:11 | disposition home health service (06) | DRG 872 ==
LOC: ANHED 12:29 → ANH3MEDSUR 17:47
PROVIDERS: Nurse Practitioner; Physician Assistant; Admitting Provider Internal Medicine; Emergency Provider General Practice; Visit Provider Internal Medicine
DX: A41.9 Sepsis, unspecified organism (principal); N10 Acute pyelonephritis; N17.9 Acute kidney failure, unspecified; Z20.822 Contact with and (suspected) exposure to COVID-19; R33.8 Other retention of urine; R53.1 Weakness; R10.13 Epigastric pain; N28.1 Cyst of kidney, acquired; Z28.21 Immunization not carried out because of patient refusal; Z88.2 Allergy status to sulfonamides; Z85.51 Personal history of malignant neoplasm of bladder; Z98.890 Other specified postprocedural states
CPT/HCPCS: 36415; 36569; 71046; 74177; 76775; 80048; 80053; 81001; 82728; 83605; 83615; 83690; 83735; 84443; 84484; 85025; 85027; 85610; 85730; 87040; 87077; 87086; 87088; 87186; 87804; 93005; 96361; 96365; 96367; 96372; 96375; 97110; 97116; 97161; 97166; 99285; A9270; C1751; C9113; C9803; G0378; J0131; J0696; J0743; J1335; J1650; J1741; J2405; J3370; J7030; J7120; Q9967; U0003; U0005

== ENCOUNTER 2021-09-26 07:53 | Outpatient (CLI) | payer MEDICARE, BC, SELFPAY ==
--- NOTE | ~2021-09-26 | US_ITS ---
EXAMINATION: US venous doppler UE LT EXAM DATE: 09/26/2021 08:34 INDICATION: Swelling of LT upper extremity. TECHNIQUE: Multiple grayscale, color flow, Doppler sonographic images of the left upper extremity vei ns obtained by technologist. Compression was performed where able. There is no prior study for cristel hernandez. FINDINGS: Left upper extremity: Jugular vein: ------------> Normal. Subclavian vein: --------> Normal. Axillary vein:------------> Thrombosed. Brachial vein:-----------> Thrombosed. Basilic vein: ------------> Normal. Cephalic vein: ----------> Normal. Radial vein: ------------> Normal. Ulnar vein: > Normal. Some images demonstrates above deep venous thrombus surrounding left upper arm catheter. IMPRESSION: Positive for left upper arm DVT in axillary, brachial veins. Some images demonstrate thro mbus surrounding the indwelling catheter. STAT hold and call. I confirmed with Carley that patient is in waiting room. Notifying ordering doct or of results and patient will be given instructions at that time. Reviewed, dictated and finalized at location A. IMPRESSION: Positive for left upper arm DVT in axillary, brachial veins. Some i mages demonstrate thrombus surrounding the indwelling catheter. STAT hold and call. I confirmed with Carley that patient is in waiting room. N otifying ordering doctor of results and patient will be given instructions at t hat time.
== END 2021-09-26 07:54 | disposition home or self-care (01) ==
PROVIDERS: PCP Family Medicine; Visit Provider Nurse Practitioner Adult Health
DX: M79.89 Other specified soft tissue disorders (principal); I82.622 Acute embolism and thrombosis of deep veins of left upper extremity
CPT/HCPCS: 93971

== ENCOUNTER 2022-03-31 00:02 | Day surgery (SDC) | payer MEDICARE, BC, SELFPAY ==
[2022-03-24 11:08] VITALS: BMI 30.6
[2022-03-31 08:54] VITALS: BP 140/80; PULSE 62; RESP 18; TEMP 35.9; O2SAT 99
[2022-03-31] MEDS: LACTATED RINGERS 1,000 ML 150 ML IV CONT (09:00)
--- NOTE | 2022-03-31 09:11 | WPDGICN ---
Assessment and Plan Assessment and plan (1) LUQ abdominal pain: Code(s): R10.12 - Left upper quadrant pain Status: Acute Assessment and Plan: Patient with persistent burning left upper quadrant pain poorly responsive to PPI therapy. Plan is for EGD to assess more thoroughly. (2) Epigastric discomfort: Code(s): R10.13 - Epigastric pain Status: Acute GI Consult Note Consult date/time: 03/31/22 09:11 HPI: Ryan Delgado is a 71 year old male Presents for EGD. Patient reports for 1 year he has had left upper quadrant abdominal pain. He feels as though this is burning in nature. This particular pain not related to dietary intake. He has had no specific factors that improve or worsen this pain. He has tried acid suppression with pantoprazole and omeprazole with no change in symptoms. Occasionally has had a different sensation of heartburn with spicy foods but does respond antacids. Patient denies any weight loss or bleeding. And presents today for EGD. His recent past history is significant for a bladder tumor which has been treated. He did have a history of a bladder infection and possible kidney infection. He has had back pain. Patient presents today for EGD because of ongoing left upper quadrant abdominal pain. A CT scan was performed last year which suggested mild nonspecific thickening of the distal esophagus. Esophagitis was a consideration. Review of Systems Review of Systems: All systems reviewed & are unremarkable except as noted in HPI and below PMFSH Past Medical History Medical History Bladder cancer Requiring excision of tumor Obesity Urinary retention Surgical History Surgical History History of back surgery X2 History of bladder surgery Excision of bladder tumor Family History Family History Father Acute myocardial infarction, Onset Age: 57 Patient's father is Mother Patient's mother is Unknown Family history not known due to adoption Other Unknown family medical history Social History Social History Social History: The patient is to his Gricelda and he has 3 children. The patient is retired from [employer]. The patient is a lifelong nonsmoker. Does not use any alcohol marijuana or illicit drugs. Code status full code Smoking status: Never smoker Second hand tobacco smoke exposure: No Alcohol intake: never Substance use: never Substance use type: does not use Living arrangements: with family Additional living arrangements comments: SPOUSE Spiritual care concerns: No Meds Home Medications and Allergies Home Medications Medication Instructions Recorded Confirmed Type duloxetine 40 mg PO QAM 06/02/21 03/24/22 History finasteride 5 mg PO DAILY 06/02/21 03/24/22 History tamsulosin 0.4 mg PO HS 06/02/21 03/24/22 History baclofen 10 mg PO TID PRN 09/13/21 03/24/22 History pantoprazole 40 mg PO Q12HR #30 tablet 09/18/21 03/24/22 Rx Allergies Allergy/AdvReac Type Severity Reaction Status Date / Time Sulfa (Sulfonamide Allergy Unknown Unknown Verified 03/31/22 08:53 Antibiotics) Vital Signs Vital Signs - 24 hr 03/31/22 08:54 Temperature 96.6 F L Pulse Rate 62 Respiratory Rate 18 Blood Pressure 140/80 Pulse Oximetry 99 Exam Narrative: Physical exam reveals patient to be alert. Vital signs stable. HEENT exam is unremarkable. Patient is anicteric. Lungs are clear to auscultation and percussion. Heart is without murmur or extra sounds. Abdominal exam bowel sounds are present soft nontender with no organomegaly.
--- NOTE | 2022-03-31 09:50 | P.PNAN_ITS ---
Anes - Initial Pre Proc Eval Procedure: Operation Date: 03/31/22 10:00 Proposed Procedures p Esophagogastroduodenoscopy - Roe Diaz MD Date/Time: 03/31/22 09:50 Surgeon: Roe Diaz MD Pre Op Diagnosis: epigastric pain Patient Data Age: 71 Gender: M Height: 1.83 m Weight: 100.6 kg Last Vital Signs Temp 96.6 F L 03/31/22 08:54 Pulse 62 03/31/22 08:54 Resp 18 03/31/22 08:54 BP 140/80 03/31/22 08:54 Pulse Ox 99 03/31/22 08:54 Allergies Allergy/AdvReac Type Severity Reaction Status Date / Time Sulfa (Sulfonamide Allergy Unknown Unknown Verified 03/31/22 08:53 Antibiotics) Home Medications Medication Instructions Recorded Confirmed Type duloxetine 40 mg PO QAM 06/02/21 03/24/22 History finasteride 5 mg PO DAILY 06/02/21 03/24/22 History tamsulosin 0.4 mg PO HS 06/02/21 03/24/22 History baclofen 10 mg PO TID PRN 09/13/21 03/24/22 History pantoprazole 40 mg PO Q12HR #30 tablet 09/18/21 03/24/22 Rx Patient hx anesthesia problems: none Family hx anesthesia problems: none Results Review: All pre-operative results and documents have been reviewed as part of the pre-operative evaluation. [facility] Past Medical History Medical History Bladder cancer Requiring excision of tumor Obesity Urinary retention Surgical History Surgical History History of back surgery X2 History of bladder surgery Excision of bladder tumor Family History Family History Father Acute myocardial infarction, Onset Age: 57 Patient's father is Mother Patient's mother is Unknown Family history not known due to adoption Other Unknown family medical history Social History Social History Social History: The patient is to his Gricelda and he has 3 children. The patient is retired from [employer]. The patient is a lifelong nonsmoker. Does not use any alcohol marijuana or illicit drugs. Code status full code Smoking status: Never smoker Second hand tobacco smoke exposure: No Alcohol intake: never Substance use: never Substance use type: does not use Living arrangements: with family Additional living arrangements comments: SPOUSE Spiritual care concerns: No Anes - Eval Final PreProcedure Day of Procedure 03/31/22 09:50 Patient weight: obese Heart: regular rate and rhythm Lungs: clear to auscultation Airway: Mallampati scale class II Neurological: alert and oriented Last oral intake: >/= 8 hours ASA classification: II Emergent: no Anesthetic plan: proceed Anesthesia type and monitoring: general GIVS and standard monitoring Results Review: All pre-operative results and documents have been reviewed as part of the pre-operative evaluation. Informed Consent: The patient's anesthetic plan and its attendant risks and benefits were discussed with the patient/family/POA. Questions were solicited and answers provided to the satisfaction of the patient/family/POA.
[2022-03-31 10:25] VITALS: BP 109/55; PULSE 53; RESP 21; O2SAT 98
[2022-03-31 10:35] VITALS: BP 105/68; BP 112/67; PULSE 47; PULSE 48; RESP 17; RESP 22; O2SAT 100; O2SAT 99
== END 2022-03-31 11:01 | disposition home or self-care (01) ==
PROVIDERS: PCP Family Medicine; Visit Provider Internal Medicine Gastroenterology
PROC: 0DJ08ZZ Inspection of Upper Intestinal Tract, Via Natural or Artificial Opening Endoscopic (ICD-10-PCS; CPT 43235; principal; 2022-03-31 10:00)
DX: R10.13 Epigastric pain (principal); R10.12 Left upper quadrant pain; R33.9 Retention of urine, unspecified; E66.9 Obesity, unspecified; Z68.30 Body mass index [BMI] 30.0-30.9, adult; Z85.51 Personal history of malignant neoplasm of bladder
CPT/HCPCS: 43239; 87081; J2704; J7120

== ENCOUNTER → 2023-11-10 13:24 | Outpatient (CLI) | payer MEDICARE, BC, SELFPAY ==
--- NOTE | ~2023-11-10 | XR_ITS ---
EXAMINATION: XR lumbar spine min 4V DATE: 11/10/2023 14:02 INDICATION: Low back pain TECHNIQUE: Anteroposterior, lateral in neutral, flexion and extension, and bilateral oblique views of the lumbar spine, and cone-down lateral view of the lumbosacral junction were obtained. COMPARISON: CT, 09/13/2021 FINDINGS: Laminectomy changes are noted at L4. Bone alignment is normal. No hypermobility is present with flexion or extension. There is severe loss of intervertebral disc space height at L4-5 and moder ate loss of disc space height at L2-3 and L3-4. The vertebral body heights are maintained. There is s evere facet joint osteoarthritis at L4-5 and L5-S1. IMPRESSION: 1. Laminectomy changes at L4 and moderate to severe lumbar spondylosis without acute findings. Reviewed, dictated and finalized at location B. VERY REPRESENTATIVE
== END ==
PROVIDERS: PCP Nurse Practitioner Family; Visit Provider Nurse Practitioner Family
DX: M47.896 Other spondylosis, lumbar region (principal); Z98.1 Arthrodesis status
CPT/HCPCS: 72110

== ENCOUNTER 2024-05-16 13:45 | Emergency (ER) | payer MEDICARE, BC, SELFPAY ==
--- NOTE | ~2024-05-16 | XR_ITS ---
EXAMINATION: XR chest 2V DATE: 05/16/2024 15:02 INDICATION: Left-sided chest pain TECHNIQUE: PA and lateral views of the chest were obtained. COMPARISON: Chest radiograph dated 09/13/2021 FINDINGS: The lungs are clear with no focal airspace opacities, pulmonary edema, pleural effusion or pneumothor ax. The cardiomediastinal silhouette is normal. Posterior spinal stimulator leads projecting over the central canal of the midthoracic spine with distal tip at the level of the inferior endplate of T6. IMPRESSION: 1. No acute cardiopulmonary disease. Reviewed, dictated and finalized at location B.
--- NOTE | ~2024-05-16 | CT_ITS ---
CT abdomen pelvis w con Ordering provider: Jaimie Miller PA-C History: 73 years Male with . epigastric/ LUQ pain, back pain . Comparison: September 13, 2021 Technique: CT abdomen and pelvis with IV and without oral contrast. Automated exposure control and it erative reconstruction technique were employed. The dose-length product was 889.42 mGy-cm. 100 mL Omn ipaque 350 was given IV. Findings: VISUALIZED LOWER CHEST: Dependent atelectatic changes with minimal atelectatic changes in the lingula . UPPER ABDOMINAL ORGANS: Liver: Normal. Gallbladder: Normal. Spleen: Normal. Stomach/duodenum: Normal. Pancreas: Normal. Adrenals: Normal. Kidneys: Bilateral hydronephrotic changes of the kidneys. Slightly dilated ureters. Large left kidney lower pole cyst measuring 6.9 x 8.2 cm. The cyst is larger than the previous study. PELVIC ORGANS: Numerous small calcifications are seen in the urinary bladder posteriorly suggestive o f tiny stones. Slightly thickened wall of the urinary bladder. Enlarged prostate. BOWEL AND MESENTERY: Colon: No evidence of diverticulitis. Normal appendix. Small Bowel: Normal. No obstruction. Peritoneum/mesentery: No free air or free fluid. No mesenteric lymphadenopathy. RETROPERITONEUM: Mild atheromatous disease of the abdominal aorta. No retroperitoneal lymphadenopat hy. MUSCULOSKELETAL: Superficial soft tissues: The superficial soft tissues are normal. Bones: Age appropriate degenerative changes of the spine. Device is seen in the left buttock most lik clark for spinal stimulation. IMPRESSION: 1. Multiple urinary bladder tiny stones. Thickened wall of the urinary bladder. 2. Bilateral hydronephrotic changes with slightly dilated ureters more on the left side. Parapelvic cysts on the right side are not excluded. 3. Large left renal cyst. 4. No evidence of appendicitis, diverticulitis or intestinal obstruction. Reviewed, dictated and finalized at location A. IMPRESSION: 1. Multiple urinary bladder tiny stones. Thickened wall of the urinary bladder . 2. Bilateral hydronephrotic changes with slightly dilated ureters more on the left side. Parapelvic cysts on the right side are not excluded. 3. Large left renal cyst. 4. No evidence of appendicitis, diverticulitis or intestinal obstruction.
[2024-05-16 13:46] VITALS: BP 178/86; PULSE 72; RESP 20; TEMP 36.5; O2SAT 97
--- NOTE | 2024-05-16 14:27 | PC.NURSE ---
patient has a hx of superficial bladder cancer removal. they have documents with them from PCP's office of recent ultrasound and CT scan results.
--- NOTE | 2024-05-16 14:34 | ECG_ITS ---
Test Date: 2024-05-16 14:46:02 Measurements Intervals [place] Rate: 61 P: 259 [place]: 158 QRS: 61 QRSD: 110 T: 75 QT: 406 QTc: 409 Interpretive Statements SINUS RHYTHM INFERIOR MYOCARDIAL INFARCTION , PROBABLY OLD [40+ ms Q WAVE AND/OR ST/T ABNORMALITY IN II/aVF] No previous ECG available for comparison Electronically Signed On 05-17-2024 11:44:18 CDT by Frankie Benson M.D.
[2024-05-16 14:54] LABS: Basophils Absolute Auto 0.1 K/mm3 (0.0-0.1); Basophils Percent Auto 0.6 % (0.2-1.2); Eosinophils Absolute Auto 0.2 K/mm3 (0-0.3); Eosinophils Percent Auto 1.7 % (0-4.4); Hematocrit 43.1 % (42.0-52.0); Hemoglobin 14.7 g/dL (14.0-18.0); Immature Granulocyte Absolute 0.03 K/mm3 (0.00-0.031); Immature Granulocyte Percent A 0.3 % (0-0.5); Lymphocytes Absolute Auto 2.14 K/mm3 (0.9-3.2); Lymphocytes Percent Auto 22.7 % (18.3-44.2); Mean Corpuscular HGB Conc 34.1 g/dl (32-36); Mean Corpuscular Volume 93.7 fl (80-100); Mean Platelet Volume 9.1 fl (7.4-10.4); Monocytes Absolute Auto 0.9 K/mm3 (0.1-0.6); Neutrophils Absolute Auto 6.2 K/mm3 (1.3-6.7); Neutrophils Percent Auto 65.7 % (45.5-73.1); Platelet Count Result 268 k/mm3 (150-375); Red Cell Distribution Width 12.2 % (11.5-14.5); White Blood Count 9.4 K/mm3 (4.5-10.0)
[2024-05-16 15:05] LABS: Alanine Aminotransferase 19 U/L (6-50); Albumin Level 4.7 g/dL (3.5-5.1); Alkaline Phosphatase 77 U/L (38-126); Anion Gap 11 mmol/L (4-12); Aspartate Amino Transferase 21 U/L (17-59); Bilirubin,Total 0.6 mg/dL (0.2-1.3); Blood Urea Nitrogen 24 mg/dL (9-20); Calcium 9.6 mg/dL (8.4-10.2); Carbon Dioxide 24 mmol/L (22-30); Chloride 108 mmol/L (98-107); Estimated CRCL calculation 42 ml/min; Estimated Glomerular Filt Rate 46; Glucose 89 mg/dL (65-110); Lipase 99 U/L (23-300); Potassium 4.1 mmol/L (3.4-5.0); Sodium 143 mmol/L (137-145)
[2024-05-16 15:11] LABS: INR 1.1; Partial Thromboplastin Time 23.7 Seconds (22.3-36.8); Prothrombin Time 14.3 Seconds (11.1-14.7)
[2024-05-16 15:16] LABS: Troponin I < 0.012 ng/mL (0.000-0.034)
--- NOTE | 2024-05-16 15:22 | ED.GENADULT ---
HPI - General Adult General Chief complaint: Unspecified Stated complaint: abd pain Time Seen by Provider: 05/16/24 14:33 Source: patient Mode of arrival: ambulatory Limitations: no limitations History of Present Illness HPI narrative: This is a 73 year old male that presents to the ER for left sided chest/abdominal pain. Ongoing for several months. Reports the pain is sharp and radiates into his back. Worse with movement and breathing. Denies fever, cough, shortness of breath, or lower extremity edema. Related Data Home Medications Medication Instructions Recorded Confirmed duloxetine 40 mg capsule,delayed 40 mg PO QAM 06/02/21 03/24/22 release finasteride 5 mg tablet 5 mg PO DAILY 06/02/21 03/24/22 tamsulosin 0.4 mg capsule 0.4 mg PO HS 06/02/21 03/24/22 baclofen 10 mg tablet 10 mg PO TID PRN Spasms 09/13/21 03/24/22 Allergies Allergy/AdvReac Type Severity Reaction Status Date / Time Sulfa (Sulfonamide Allergy Unknown Unknown Verified 03/31/22 08:53 Antibiotics) Review of Systems Review of Systems: CONSTITUTIONAL: Denies fever CARDIOVASCULAR: Reports chest pain RESPIRATORY: Denies cough or dyspnea. GASTROINTESTINAL: Reports abdominal pain. Denies nausea, vomiting, or diarrhea. GENITOURINARY: Denies dysuria or hematuria. MUSCULOSKELETAL: Reports back pain, joint pain, and myalgia. NEUROLOGIC: Denies numbness, or weakness. All systems reviewed & are unremarkable except as noted in HPI and below PMFSH Past Medical History Medical History Bladder cancer Requiring excision of tumor Obesity Urinary retention Surgical History Surgical History History of back surgery X2 History of bladder surgery Excision of bladder tumor Family History Family History Father Acute myocardial infarction, Onset Age: 57 Patient's father is Mother Patient's mother is Unknown Family history not known due to adoption Other Unknown family medical history Social History Social History Social History: The patient is to his Gricelda and he has 3 children. The patient is retired from [employer]. The patient is a lifelong nonsmoker. Does not use any alcohol marijuana or illicit drugs. Code status full code Smoking status: Never smoker Second hand tobacco smoke exposure: No Alcohol intake: never Substance use: never Substance use type: does not use Living arrangements: with family Additional living arrangements comments: SPOUSE Spiritual care concerns: No Exam Narrative: GENERAL: Well-appearing, well-nourished, and in no acute distress. HEAD: Normocephalic, atraumatic. EYES: EOMI. NECK: Supple. No masses. No JVD CHEST: Clear to auscultation. No respiratory distress. No wheezes rales or rhonchi HEART: Regular rate and rhythm. No murmur heard. Normal peripheral pulses. ABDOMEN: Soft, nondistended, normal active bowel sounds. Tender to palpation in the left upper quadrant, without guarding EXTREMITIES: Normal range of motion. No edema. SKIN: Warm, dry, no rash. NEURO: No focal deficits. Alert and oriented x3. PSYCH: Normal mood and affect Course Course Emergency Course: Patient updated on his workup and agrees with plan of care Vital Signs Vital signs: Vital Signs Temperature 97.7 F 05/16/24 13:46 Pulse Rate 72 05/16/24 13:46 Respiratory Rate 20 05/16/24 13:46 Blood Pressure 178/86 H 05/16/24 13:46 Pulse Oximetry 97 05/16/24 13:46 Oxygen Delivery Room Air 05/16/24 13:46 Temperature 97.7 F 05/16/24 13:46 Pulse Rate 67 05/16/24 17:20 Respiratory Rate 14 05/16/24 17:20 Blood Pressure 133/81 05/16/24 17:20 Pulse Oximetry 99 05/16/24 17:20 Oxygen Delivery Room
[2024-05-16 15:26] VITALS: BP 137/85; PULSE 72; RESP 14; O2SAT 98
[2024-05-16 15:59] LABS: D Dimer 0.34 ug/mL (<0.48)
--- NOTE | 2024-05-16 17:14 | ECG_ITS ---
Test Date: 2024-05-16 17:18:38 Measurements Intervals [place] Rate: 57 P: 23 LA: 249 QRS: 66 QRSD: 106 T: 111 QT: 417 QTc: 409 Interpretive Statements SINUS BRADYCARDIA WITH FIRST DEGREE AV BLOCK NONSPECIFIC ST & T-WAVE ABNORMALITY Compared to ECG 05/16/2024 14:46:02 First degree AV block now present Electronically Signed On 05-17-2024 11:47:59 CDT by Frankie Benson M.D.
[2024-05-16 17:20] VITALS: BP 133/81; PULSE 67; RESP 14; O2SAT 99
[2024-05-16 17:47] LABS: Troponin I < 0.012 ng/mL (0.000-0.034)
[2024-05-16 18:47] VITALS: BP 148/77; PULSE 61; RESP 15; O2SAT 100
== END 2024-05-16 18:52 | disposition home or self-care (01) ==
PROVIDERS: Emergency Provider Physician Assistant; PCP Family Medicine
DX: N28.1 Cyst of kidney, acquired (principal); Z85.51 Personal history of malignant neoplasm of bladder
CPT/HCPCS: 36415; 71046; 74177; 80053; 83690; 84484; 85025; 85380; 85610; 85730; 93005; 99284; Q9967

== ENCOUNTER 2024-06-08 01:55 | Day surgery (SDC) | payer MEDICARE, BC, SELFPAY ==
--- NOTE | 2024-06-06 11:32 | PC.NURSE ---
Report to the Outpatient Waiting Room, entrance under the green pavilion located off [facility], at time 830 on date 06/08/24. Planned Procedure Time: 1030am Time changes happen often and if your time is changed the preop area will call you the afternoon before. - You and your visitor will be asked to self-screen and do not enter if you have any COVID symptoms. - A mask is optional within the hospital at this time. Patients may have clear liquids (water, carbonated beverages, clear teas, apple juice) until 3 hours prior to surgery with a maximum of 20 ounces. stop by 730a - No food from midnight until time of surgery Take the following medications with a SIP of water the morning of surgery: nothing DO NOT STOP ANY OF YOUR OTHER PRESCRIPTION MEDICATIONS PRIOR TO SURGERY ?EXCEPT THE FOLLOWING Medications to discontinue per physician NA Date to take last dose Please no make-up, nail anguillan, hairspray, perfume, deodorant, or body powder the day of surgery. No jewelry (including any body piercings) or valuables the day of surgery, leave them at home. Please take a shower or bath the night before, or the morning of, surgery with an antibacterial soap. Wear comfortable, loose fitting clothing. Children are encouraged to wear pajamas. - Jewelry must be removed prior to entering the operating room. Rings and piercings that are not removed may be cut off. - The hospital will not accept responsibility for valuables. - Please leave all valuables, including medications, at home the day of surgery. If you are going home after surgery, a licensed truck driver heavy must drive you home. - NO public transportation without another adult if you receive anesthesia. - We recommend that an adult stay with you for 24 hours following discharge. - We also recommend that you do not drive, make important decision, drink alcoholic beverages, or take any drugs that were not prescribed by your health care provider for at least 24 hours after your discharge time. Follow any additional instructions given to you from your surgeon. If you or anyone in your household have experienced Covid symptoms in the past week, please notify your surgeon or the nurse liaison at the phone number below for possible testing. Telephone instructions given to patient Ryan and asked if any additional questions and then verbalized understanding. Patient advised to call surgeon office or pre surgery nurse liaison [phone] if any additional questions.
[2024-06-06 11:38] VITALS: BMI 29.3
[2024-06-08] VITALS (11 sets, daily range): BP systolic 139–161; BP diastolic 79–90; PULSE 47–64; RESP 12–16; TEMP 36.1–36.2; O2SAT 100; BMI 28.7
--- NOTE | ~2024-06-08 | XR_ITS ---
EXAMINATION: XR retrograde pyelogram BI DATE: 06/08/2024 10:24 INDICATION: Bilateral retrograde pyelograms TECHNIQUE: 104 fluoroscopic images of the abdomen and pelvis were obtained during procedure performed by Dr. Moreira. Radiologist was not present for the imaging or procedure. The amount of fluoroscopy t sultana used during this procedure was 0.5 minutes. COMPARISON: CT dated 05/16/2024 FINDINGS: Spinal stimulator projects over the left pelvis with leads extending cephalad lung the left side of t he lumbar spine on the recreation counselor images. Right-sided retrograde contrast injections demonstrate a normal right ureter and right renal collecting system with no evident strictures or filling defects. Retrogr ariel contrast injection into the left ureter demonstrates dilation of the distal ureter extending to a prominent J hooking of the distalmost ureter. The mid to distal ureter remains unopacified on the pr ovided images with no obstructing filling defects within the contrast opacified portions of the dista l left ureter. IMPRESSION: 1. Normal right retrograde pyelogram. 2. Dilation of the visualized distal left ureter with J hooking at the distalmost ureter and with no evident filling defects in the opacified distal ureter. Reviewed, dictated and finalized at location A. IMPRESSION: 1. Normal right retrograde pyelogram. 2. Dilation of the visualized distal left ureter with J hooking at the distalmo st ureter and with no evident filling defects in the opacified distal ureter.
--- NOTE | 2024-06-08 06:30 | WPDHPUPDATE1 ---
History and Physical Update Update Date/Time: 06/08/24 06:30 History and Physical has been reviewed, including an updated exam of the patient. There are NO changes in the patient's condition. Risks, benefits, and alternatives have been discussed and questions answered. Patient agrees to proceed with procedure.
[2024-06-08] MEDS: LACTATED RINGERS 1,000 ML 30 ML IV CONT ×2 (08:40→11:58)
--- NOTE | 2024-06-08 08:52 | P.PNAN_ITS ---
Anes - Initial Pre Proc Eval Procedure: Operation Date: 06/08/24 10:30 Proposed Procedures p Cystoscopy, Bilateral Retrograde Pyelogram, Holmium Laser Lithotripsy with Bladder Stone Extraction - Jt Moreira MD Date/Time: 06/08/24 08:52 Surgeon: Jt Moreira MD Pre Op Diagnosis: Bladder Stones Patient Data Age: 73 Gender: M Height: 1.83 m Weight: 98.1 kg Allergies Allergy/AdvReac Type Severity Reaction Status Date / Time Sulfa (Sulfonamide Allergy Unknown Unknown Verified 06/06/24 11:18 Antibiotics) Home Medications Medication Instructions Recorded Confirmed Type duloxetine 40 mg capsule,delayed 40 mg PO QAM 06/02/21 06/06/24 History release finasteride 5 mg tablet 5 mg PO DAILY 06/02/21 06/06/24 History tamsulosin 0.4 mg capsule 0.4 mg PO HS 06/02/21 06/06/24 History baclofen 10 mg tablet 30 mg PO BID Spasms 09/13/21 06/06/24 History Patient hx anesthesia problems: none Family hx anesthesia problems: none Results Review: All pre-operative results and documents have been reviewed as part of the pre- operative evaluation. [facility] Past Medical History Medical History Bladder cancer Requiring excision of tumor Obesity Urinary retention Surgical History Surgical History History of back surgery X2 History of bladder surgery Excision of bladder tumor Family History Family History Father Acute myocardial infarction, Onset Age: 57 Patient's father is Mother Patient's mother is Unknown Family history not known due to adoption Other Unknown family medical history Social History Social History Social History: The patient is to his Gricelda and he has 3 children. The patient is retired from [employer]. The patient is a lifelong nonsmoker. Does not use any alcohol marijuana or illicit drugs. Code status full code Smoking status: Never smoker Second hand tobacco smoke exposure: No Alcohol intake: never Substance use: never Substance use type: does not use Living arrangements: with family Additional living arrangements comments: [facility] Spiritual care concerns: No Anes - Eval Final PreProcedure Day of Procedure 06/08/24 08:52 Patient weight: obese Heart: regular rate and rhythm Lungs: clear to auscultation Airway: Mallampati scale class II Neurological: alert and oriented Last oral intake: >/= 8 hours ASA classification: III Emergent: no Anesthetic plan: proceed Anesthesia type and monitoring: general LMA and standard monitoring Results Review: All pre-operative results and documents have been reviewed as part of the pre- operative evaluation. Obesity, bladder ca. EKG w NSR, 1 deg AV block. Pt exercise limited by back pain, prev back injury, no cp or sob w walking short distances. Informed Consent: The patient's anesthetic plan and its attendant risks and benefits were discussed with the patient/family/POA. Questions were solicited and answers provided to the satisfaction of the patient/family/POA.
[2024-06-08] MEDS: ceFAZolin 2 GM/D5W 50 ML 2 GM/50 ML BAG IVPB (09:46)
[2024-06-08] MEDS: LIDOCAINE HCL 2% GEL UROJET 10 ML PKG MUCOUS MEM (09:53)
--- NOTE | 2024-06-08 10:22 | W.PM.PROC2 ---
Procedure Note - Detailed Date of Procedure 06/08/24 Pre-op Diagnosis Bladder Stones, bilateral hydronephrosis Post-op Diagnosis Same Procedure Performed Cystoscopy, retrograde pyelography extraction multiple bladder stones Surgeon Jt Moreira MD Anesthesia General Description of Procedure Patient is brought to the operative suite was prepped draped in routine sterile fashion while in dorsal lithotomy position after the uneventful induction a general anesthetic. Cystoscopy was 1st undertaken with a 19 F rigid cystoscope. He has significant lateral lobe hyperplasia with a moderate-sized median lobe. Bladder has countless tiny small bladder stones. Mucosa is hyperemia and there was no evidence of intravesical neoplasm has a single orthotopic ureteral orifice bilaterally. The bladder is moderately trabeculated. Using an 8 F bulb-tipped catheter retrograde pyelograms were obtained. Right retrograde pyelogram appears normal with significant J hooking of the distal ureter. Left retrograde pyelogram I can only fill portion of the distal ureter because of the J hooking. There is hydronephrosis left but no filling defects or points obstruction that I can this point I exchanged the cystoscope for a 27 F resectoscope. Using the Radha evacuator and the loop I was able extract all bladder stones intact. Termination of the procedure there was mild oozing from the bladder neck. I placed a 20 F catheter which I intended removed before discharge. Patient tolerated the procedure well was taken to the recovery room good condition Drains Yes Packing No Pathology Yes Complications No immediate complications Condition Stable
[2024-06-08] MEDS: fentaNYL CITRATE INJ (*CRX) 100 MCG/2 ML VIAL 25 MCG IV PUSH (10:58)
--- NOTE | 2024-06-08 12:19 | SUR.PHASEII ---
Pt does NOT need to urinate prior to discharge per Parmonica.
== END 2024-06-08 13:12 | disposition home or self-care (01) ==
PROVIDERS: PCP Family Medicine; Visit Provider Urology
PROC: (CPT 52352; principal; 2024-06-08 10:30)
DX: N21.0 Calculus in bladder (principal); N32.89 Other specified disorders of bladder; N40.1 Benign prostatic hyperplasia with lower urinary tract symptoms; Z85.51 Personal history of malignant neoplasm of bladder; N13.30 Unspecified hydronephrosis
CPT/HCPCS: 52310; 74420; 82365; 88300; C1758; C1769; J0690; J2405; J2704; J3010; J7120; Q9966

== ENCOUNTER 2024-10-17 09:40 | Emergency (ER) | payer MEDICARE, BC, SELFPAY ==
[2024-10-17] VITALS (25 sets, daily range): BP systolic 127–166; BP diastolic 64–87; PULSE 78; RESP 18; O2SAT 90–96
--- NOTE | ~2024-10-17 | CT_ITS ---
CT abdomen pelvis w con Ordering provider: Hu Plata MD History: 74 years Male with . hematuria. hx stones, fonseca, neurogenic bladder . Comparison: None. Technique: CT abdomen and pelvis with IV and without oral contrast. Automated exposure control and it erative reconstruction technique were employed. The dose-length product was 870.02 mGy-cm. 100 mL Omnipaque 350 was given IV. Findings: VISUALIZED LOWER CHEST: Dependent Atelectatic changes seen posteriorly. UPPER ABDOMINAL ORGANS: Liver: Normal. Gallbladder: Distended gallbladder with no definite stones. Spleen: Normal. Stomach/duodenum: Normal. Pancreas: Normal. Adrenals: Normal. Kidneys: Bilateral hydronephrotic changes with dilated left ureter. No stones seen. Fat stranding heaven und the left renal pelvis. Enlarged left kidney lower pole simple cyst measuring 8.5 x 7 cm. PELVIC ORGANS: The bladder shows thickened wall. This may be inflammatory or infiltrative. Cystoscopy is advised. Stones are seen in the left side of the bladder posteriorly. Fonseca's catheter is noted. Minimal air is seen anteriorly BOWEL AND MESENTERY: Colon: No evidence of diverticulitis. Fecal material is impacted in the rectum. Normal appendix. Small Bowel: Normal. No obstruction. Peritoneum/mesentery: No free air. Minimal free fluid seen around the bladder, posteriorly in the pel vis and around the ureters.. No mesenteric lymphadenopathy. RETROPERITONEUM: Mild atheromatous disease of the abdominal aorta. No retroperitoneal lymphadenopat hy. MUSCULOSKELETAL: Superficial soft tissues: Spinal stimulator is seen in the left buttock area. Otherwise, The superfic ial soft tissues are normal. Bones: Age appropriate degenerative changes of the spine. postoperative changes seen at the L5 verteb ra area IMPRESSION: 1. No evidence of appendicitis, diverticulitis or intestinal obstruction. 2. Bilateral hydronephrotic changes. 3. Thickened wall of the gallbladder with stones. Cystoscopy is advised. 4. Distended gallbladder with no stones. Fat infiltration of the liver. 5. Fluid seen around the bladder and ureters and posteriorly in the pelvis. 6. Large left kidney lower pole simple cyst. Reviewed, dictated and finalized at location A. [facility]
[2024-10-17 10:54] LABS: Basophils Absolute Auto 0.1 K/mm3 (0.0-0.1); Basophils Percent Auto 0.3 % (0.2-1.2); Hematocrit 38.3 % (42.0-52.0); Hemoglobin 12.9 g/dL (14.0-18.0); Immature Granulocyte Absolute 0.19 K/mm3 (0.00-0.031); Immature Granulocyte Percent A 0.7 % (0-0.5); Lymphocytes Absolute Auto 0.52 K/mm3 (0.9-3.2); Mean Corpuscular HGB Conc 33.7 g/dl (32-36); Mean Corpuscular Hemoglobin 32.3 pg (26-34); Mean Corpuscular Volume 95.8 fl (80-100); Mean Platelet Volume 9.6 fl (7.4-10.4); Monocytes Absolute Auto 2.1 K/mm3 (0.1-0.6); Neutrophils Absolute Auto 23.4 K/mm3 (1.3-6.7); Platelet Count Result 236 k/mm3 (150-375); White Blood Count 26.2 K/mm3 (4.5-10.0)
[2024-10-17] MEDS: ONDANSETRON INJ 4 MG/2 ML VIAL IV PUSH (10:57)
[2024-10-17] MEDS: HYDROmorphone HCL INJ (*CRX) 1 MG/ML SYR IV PUSH (10:57)
[2024-10-17 11:04] LABS: Alanine Aminotransferase 32 U/L (6-50); Albumin Level 3.7 g/dL (3.5-5.1); Alkaline Phosphatase 82 U/L (38-126); Anion Gap 6 mmol/L (4-12); Aspartate Amino Transferase 24 U/L (17-59); Blood Urea Nitrogen 37 mg/dL (9-20); Calcium 9.1 mg/dL (8.4-10.2); Carbon Dioxide 23 mmol/L (22-30); Chloride 105 mmol/L (98-107); Estimated CRCL calculation 44 ml/min; Estimated Glomerular Filt Rate 42; Glucose 153 mg/dL (65-110); Lipase 42 U/L (23-300); Potassium 4.9 mmol/L (3.4-5.0); Sodium 134 mmol/L (137-145)
[2024-10-17 11:12] LABS: INR 1.3; Prothrombin Time 16.4 Seconds (11.1-14.7)
[2024-10-17 11:13] LABS: Partial Thromboplastin Time 31.3 Seconds (22.3-36.8)
--- NOTE | 2024-10-17 11:14 | ED_ITS ---
HPI - Back Pain/Injury General Chief Complaint: Back Pain/Injury Stated Complaint: back pain, hematuria Time Seen by Provider: 10/17/24 10:04 History of Present Illness HPI Narrative: 74-year-old male with a history of thoracic myelopathy status post thoracic procedure T3-[address] [facility]. He was transferred to [facility] recently and has been there for several days. He had a Zheng catheter placed for urinary retention during his complex hospital course and rehab course. He was recently diagnosed with a DVT after the procedure and started on Eliquis. Urology was on board at 1.4 difficult Zheng placement. He presents today from his skilled rehab facility for concerns of right-sided abdominal pain radiating to the back and hematuria in his Zheng catheter. He was previously draining clear yellow urine but now draining dark blood-tinged urine. He is endorsing 10 at 10 pain in the right side of his abdomen radiating towards his back but not near his incision sites and closer towards his hip. He states whenever he moves or lifts up his right leg the pain gets worse. No history of any hernias, aneurysms or dissection. Does take Eliquis still for his previous DVT. No leg swelling or tenderness in the extremity. He is a paraplegic from the thoracic myelopathy. Denies any fever chills but states he has a headache that is not responsive to his home oxycodone at this time. Related Data Home Medications Medication Instructions Recorded Confirmed duloxetine 40 mg capsule,delayed 30 mg PO BID 06/02/21 10/14/24 release finasteride 5 mg tablet 5 mg PO DAILY 06/02/21 10/14/24 tamsulosin 0.4 mg capsule 0.4 mg PO HS 06/02/21 10/14/24 baclofen 10 mg tablet 10 mg PO BID Spasms 09/13/21 10/14/24 Florastor 1 cap PO DAILY 10/14/24 10/14/24 acetaminophen 2 tablet BYMOUTH Q6H PRN Pain 10/14/24 10/14/24 apixaban 5 mg tablet 5 mg PO BID 10/14/24 10/14/24 bisacodyl 10 mg RECTAL DAILY PRN Constipation 10/14/24 10/14/24 docusate sodium 100 mg capsule 100 mg PO BID 10/14/24 10/14/24 oxycodone 5 mg tablet 5 mg PO Q4H PRN Pain 10/14/24 10/14/24 polyethylene glycol 3350 17 gram 17 g PO BID PRN Constipation 10/14/24 10/14/24 oral powder packet (Miralax) (First line) sennosides 8.6 mg tablet (senna) 8.6 mg PO BID 10/14/24 10/14/24 Allergies Allergy/AdvReac Type Severity Reaction Status Date / Time Sulfa (Sulfonamide Allergy Unknown Unknown Verified 10/14/24 15:51 Antibiotics) Review of Systems Review of Systems: As reviewed above in HPI [facility] Past Medical History Medical History Back pain of thoracolumbar region Bladder cancer Requiring excision of tumor Bladder stones BPH NOS w ur obs/LUTS CKD (chronic kidney disease) Gait abnormality History of tethered spinal cord HLD (hyperlipidemia) Hypoxemia Neurogenic bowel, not elsewhere classified Neurogenic dysfunction of the urinary bladder Obesity Paraplegia, incomplete Postoperative deep vein thrombosis (DVT) Sinus bradycardia Spinal cord stimulator status Thoracic myelopathy Urinary retention Surgical History Surgical History History of back surgery X2 History of bladder surgery Excision of bladder tumor Family History Family History Father Acute myocardial infarction, Onset Age: 57 Patient's father is Mother Patient's mother is Unknown Family history not known due to adoption Other Unknown family medical history Social History Social History Social History: The patient is to his Gricelda and he has 3 children. The patient is retired from [employer]. The patient is a lifelong nonsmoker. Does not use any alcohol marijuana or illicit drugs. Code status full code Smoking status: Never smoker Second hand tobacco smoke exposure: No Alcohol intake: never Substance use: never Substance use type: does not use Do You Feel Safe in your Home?: Yes Lack of Transportation: No Lack of Food: Never True Current Housing: I Have Housing Concerned About Future Housing: No Difficulty Paying Gas/Electric Bills: No Difficulty Paying for Meds: No Currently Unemployed: No Education: High School Diploma/GED Difficulty w/ Childcare or Family Care: No Living arrangements: with family Additional living arrangements comments: [facility]SE Spiritual care concerns: No Exam Narrative: GENERAL: [Well-appearing, well-nourished, and in no acute distress.] HEAD: [Normocephalic, atraumatic.] EYES: [PERRLA and EOMI.] ENT: Nares clear, no rhinorrhea or epistaxis. Mucous membranes moist. NECK: Supple. CHEST: [Clear to auscultation. No respiratory distress.] HEART: [Regular rate and rhythm]. No murmur heard. [Normal peripheral pulses.] ABDOMEN: Soft, nondistended, tenderness to palpation the right lower quadrant and right flank. EXTREMITIES: Normal range of motion. [No edema.] No pain or tenderness along the midline thoracic or lumbar spine or paraspinal muscles SKIN: Warm, dry, no rash. NEURO: Paraplegic, no new focal deficits, awake alert oriented x3. Bilateral upper extremities with full strength. PSYCH: [Normal mood and affect.] Course Vital Signs Vital signs: Vital Signs Pulse Rate 78 10/17/24 09:49 Respiratory Rate 18 10/17/24 09:49 Blood Pressure 166/87 H 10/17/24 09:49 Pulse Oximetry 94 10/17/24 09:49 Oxygen Delivery Room Air 10/17/24 09:49 Pulse Rate 78 10/17/24 09:49 Respiratory Rate 18 10/17/24 09:49 Blood Pressure 130/64 10/17/24 15:01 Pulse Oximetry 92 10/17/24 15:01 Oxygen Delivery Room Air 10/17/24 09:49 MDM - Back Pain/Injury MDM Narrative Medical decision making narrative: 74-year-old male with complex surgical history including recent spinal fusion of T3 through T5 with laminectomy at [facility] for thoracic myelopathy causing paraplegia. He was discharged [facility] [place] over the last few days. Today he presents with hematuria and abdominal pain. He has an indwelling Zheng catheter since his procedure for urinary retention and was difficult to place secondary to prostate issues. Urology at the place the catheter earlier. Reported potential urethral trauma according to the family members present at bedside with collateral formation. Patient states that he has been having right-sided lower abdominal pain since last night. Was previously draining judah r urine but now having blood mixed with the urine. No clot passage that he has noted in the catheter. He overall appears well and is recovering from his recent procedure. No obvious wound injury or infection. Abdomen is tender to palpation the right lower quadrant but no appreciable masses or hernias. Catheter does have blood-tinged urine without clots formation. Vital signs reassuring without any significant blood pressure elevations, tachycardia, hypoxia, tachypnea. Differential is broad but given that he is on Eliquis with recent urethral trauma from the catheter insertions could also be contributing to the symptoms he is experiencing. Intra-abdominal process is not excluded. His family brought collateral formation and states that he has previously been seen by urologist Dr. Barnes and diagnosed with multiple multiple bladder stones which could also be contributing to this in addition to a previous benign tumor that did not have any kind of interventions upon it. Ultimately a CT scan with IV contrast is needed at this time additional laboratory studies including CBC, CMP, urinalysis. He was provided Dilaudid and Zofran for symptom relief at this time. Laboratory studies revealed a leukocytosis of 26.2 which is increased from his previous level of 16.1 which could be secondary to an active infection somewhere or responsive to potential steroids from the spinal surgery. No anemia worse than baseline. Normal platelets. Electrolytes within normal limits. Creat inine nearly at baseline, no signs for significant vascular depletion or dehydration. Normal glucose 153. Normal hepatic function panel. Urinalysis with greater than 100 red and white blood cells as well as bacteria. Will send for culture. CT scan of the abdomen and pelvis with contrast showed no evidence of appendicitis, diverticulitis or intestinal obstruction. Bilateral hydronephrotic changes, thickened wall gallbladder with stones, distended gallbladder without stones, fluid around the bladder and ureters, large left kidney simple cyst. Patient is well establish for Dr. Moreira from Urology and I discussed the case over the phone with him as he is on-call today. We will review patient's imaging studies, laboratory assessment and plan of care. He is very familiar with the patient and does not have any acute concerns based on the patient's case today and does not think he requires hospitalization for procedures or cystoscopy at this time. Likely diagnosis of hemorrhagic cystitis exacerbated by the urethral trauma from the Zheng catheter and being on Eliquis complicating this. Recommendations for antibiotics and regular outpatient follow-up. I discussed the case with the patient's family and the patient in the room and we went over patient's imaging studies, laboratory assessment and recommendations per the urologist. Ultimately family was agreeable with discharge back to his care facility given that he does not need any interventions or treatments besides antibiotics at this time. We gave him a dose of Rocephin will be sending him with a 10 day course of cefuroxime as well as phenazopyridine for urinary pain control and he can be safely discharged back to his facility at this time with return precautions. Medical Records Attestation: I reviewed the patient's medical records. Lab Data Attestation: I reviewed the patient's lab results. 10/17/24 10:47 10/17/24 10:47 Labs: Lab Results 10/17/24 10/17/24 Range/Units 10:47 13:06 WBC 26.2 H (4.5-10.0) K/mm3 RBC 4.00 L (4.6-6.20) M/mm3 Hgb 12.9 L (14.0-18.0) g/dL Hct 38.3 L (42.0-52.0) % MCV 95.8 (80-100) fl MCH 32.3 (26-34) pg MCHC 33.7 (32-36) g/dl RDW 14.0 (11.5-14.5) % Plt Count 236 (150-375) k/mm3 MPV 9.6 (7.4-10.4) fl Immature Gran % (Auto) 0.7 H (0-0.5) % Neut % (Auto) 89.0 H (45.5-73.1) % Lymph % (Auto) 2.0 L (18.3-44.2) % [place] % (Auto) 8.0 (2.6-8.5) % Eos % (Auto) 0.0 (0-4.4) % Baso % (Auto) 0.3 (0.2-1.2) % Lymph # (Auto) 0.52 L (0.9-3.2) K/mm3 [place] # (Auto) 2.1 H (0.1-0.6) K/mm3 Eos # (Auto) 0.0 (0-0.3) K/mm3 Baso # (Auto) 0.1 (0.0-0.1) K/mm3 Abs Immat Gran (auto) 0.19 H (0.00-0.031) K/mm3 Absolute Neuts (auto) 23.4 H (1.3-6.7) K/mm3 Absolute Nucleated RBC 0.000 (0.0-0.012) K/mm3 Nucleated RBC % 0.0 (0.0-0.2) % PT 16.4 H (11.1-14.7) Seconds INR 1.3 APTT 31.3 (22.3-36.8) Seconds Sodium 134 L (137-145) mmol/L Potassium 4.9 (3.4-5.0) mmol/L Chloride 105 (98-107) mmol/L Carbon Dioxide 23 (22-30) mmol/L Anion Gap 6 (4-12) mmol/L BUN 37 H D (9-20) mg/dL Creatinine 1.60 H (0.7-1.3) mg/dL Estim Creat Clear Calc 44 ml/min Estimated GFR 42 L (59 - ) Glucose 153 H (65-110) mg/dL Calcium 9.1 (8.4-10.2) mg/dL Total Bilirubin 1.0 (0.2-1.3) mg/dL AST 24 (17-59) U/L ALT 32 (6-50) U/L Alkaline Phosphatase 82 (38-126) U/L Total Protein 7.0 (6.3-8.2) g/dL Albumin 3.7 (3.5-5.1) g/dL Lipase 42 (23-300) U/L Urine Color Red H (Yellow) Urine Appearance Turbid H (Clear) Urine pH 5.5 (5.0-9.0) Ur Specific Schurz TNP Urine Protein TNP Urine Glucose (UA) TNP Urine Ketones TNP Ur Blood (Man) TNP Urine Nitrate TNP Urine Bilirubin TNP Urine Urobilinogen TNP Add Ur Microanalysis Reviewed Leukocyte Esterase Rfl TNP Urine RBC >100 H (0-2) /hpf Urine WBC >100 H (0-3) /hpf Ur Squamous Epith Cells Moderate (Few) /hpf Urine Bacteria 2+ H /hpf Urine Casts 0-2 Blood Type B Negative Antibody Screen Negative Imaging Data Attestation: I personally reviewed and interpreted this imaging study as follows: My impression: Impressions Abdomen/Pelvis CT 10/17/24 11:39 IMPRESSION: 1. No evidence of appendicitis, diverticulitis or intestinal obstruction. 2. Bilateral hydronephrotic changes. 3. Thickened wall of the gallbladder with stones. Cystoscopy is advised. 4. Distended gallbladder with no stones. Fat infiltration of the liver. 5. Fluid seen around the bladder and ureters and posteriorly in the pelvis. 6. Large left kidney lower pole simple cyst. Discharge Plan Discharge Clinical Impression: Acute hemorrhagic cystitis, Thoracic myelopathy, Bladder stones, Renal cyst, H/O laminectomy, DVT (deep venous thrombosis) Patient Disposition: NH Usp/Asst Living Condition: Stable Instructions: Antibiotic Form, Catheter-associated Urinary Tract Infection (ED), Interstitial Cystitis (ED), Urinary Tract Infection in Older Adults (ED) Additional Instructions: Your imaging studies and laboratory assessment shows a urinary infection consistent with hemorrhagic cystitis given that you are on a blood thinner medic ation newly started in addition to the urethral trauma from the Zheng catheter. We spoke to your urologist together over the phone and recommendations for outpatient follow-up and antibiotic therapy at this time. Prescriptions will be sent to your pharmacy. Continue taking her pain control medications from the recent procedure. Should you develop any persistent fevers despite antipyretic therapy, increased pain, nauseous, vomiting, love bleeding or any other concerns he can always return to the ER any time Prescriptions: New phenazopyridine 200 mg tablet 200 mg PO TID Qty: 12 0RF cefuroxime axetil 500 mg tablet 500 mg PO BID 10 Days Qty: 20 0RF No Action tamsulosin 0.4 mg capsule 0.4 mg PO HS finasteride 5 mg tablet 5 mg PO DAILY duloxetine 40 mg capsule,delayed release(DR/EC) 30 mg PO BID baclofen 10 mg tablet 10 mg PO BID Patient Comments: numbness tingling lt leg prn acetaminophen 500 mg 2 tablet BYMOUTH Q6H PRN (Reason: Pain) Rx Instructions: Take 2 capsules (1000 mg total) by mouth every 6 hours as needed for pain. docusate sodium 100 mg Capsule 100 mg PO BID apixaban 5 mg Tablet 5 mg PO BID Florastor 250 mg capsule 1 cap PO DAILY bisacodyl 10 mg suppository 10 mg RECTAL DAILY PRN (Reason: Constipation) Rx Instructions: Insert 1 suppository (10 mg total) into the rectum daily as needed for constipation if no BM 24 hours after miralaz oxycodone 5 mg Tablet 5 mg PO Q4H PRN (Reason: Pain) sennosides [senna] 8.6 mg Tablet 8.6 mg PO BID polyethylene glycol 3350 [Miralax] 17 gram Powder In Packet 17 g PO BID PRN (Reason: Constipation (First line)) Follow-up/Referrals: Marcelino,MD Sj [Primary Care Provider] - Stand Alone Forms: Detention Discharge Time of Disposition: 15:37
[2024-10-17 13:52] LABS: Add Urine Microscopic? YES; Appearance Urine Turbid (Clear); Bacteria Urine 2+ /hpf; Color Urine Red (Yellow); Need Manual Microscopic Reviewed; Non Pathogenic Casts 0-2; RBC Urine >100 /hpf (0-2); Squamous Epithelial Cell Urine Moderate /hpf (Few); WBC Urine >100 /hpf (0-3)
[2024-10-17 13:53] LABS: pH Urine 5.5 (5.0-9.0)
--- NOTE | 2024-10-17 15:50 | PC.NURSE ---
Report called to Kristen FLORES at [facility].
== END 2024-10-17 18:45 ==
PROVIDERS: Emergency Provider Student in an Organized Health Care Education/Training Program; PCP Family Medicine
DX: N30.01 Acute cystitis with hematuria (principal); N28.1 Cyst of kidney, acquired; N21.0 Calculus in bladder; T81.72XD Complication of vein following a procedure, not elsewhere classified, subsequent encounter; I82.409 Acute embolism and thrombosis of unspecified deep veins of unspecified lower extremity; G95.9 Disease of spinal cord, unspecified; G82.20 Paraplegia, unspecified; Z98.1 Arthrodesis status; N40.1 Benign prostatic hyperplasia with lower urinary tract symptoms; R33.8 Other retention of urine; N18.9 Chronic kidney disease, unspecified; E78.5 Hyperlipidemia, unspecified; E66.9 Obesity, unspecified; Z68.30 Body mass index [BMI] 30.0-30.9, adult; N31.9 Neuromuscular dysfunction of bladder, unspecified; Z96.82 Presence of neurostimulator; Z85.51 Personal history of malignant neoplasm of bladder; Z79.01 Long term (current) use of anticoagulants; Z79.899 Other long term (current) drug therapy; Y83.8 Other surgical procedures as the cause of abnormal reaction of the patient, or of later complication, without mention of misadventure at the time of the procedure
CPT/HCPCS: 36415; 74177; 80053; 81001; 83690; 85025; 85610; 85730; 86850; 86900; 86901; 87077; 87086; 87088; 87186; 96365; 96375; 99284; J0696; J1171; J2405; Q9967

== ENCOUNTER 2024-11-06 11:38 | Inpatient (IN) | payer MEDICARE, BC, SELFPAY ==
[2024-11-06] VITALS (40 sets, daily range): BP systolic 106–135; BP diastolic 62–86; PULSE 63–66; RESP 14–17; TEMP 36.6–37.1; O2SAT 94–100; BMI 29.0
--- NOTE | ~2024-11-06 | CT_ITS ---
EXAMINATION: CT abdomen pelvis w con DATE: 11/06/2024 13:33 INDICATION: Right lower quadrant abdominal pain TECHNIQUE: Computed tomography (CT) of the abdomen and pelvis was performed with 100 mL Omnipaque-350 intravenous contrast. Automated exposure control and iterative reconstruction technique were employe d. The dose-length product was 962.70 mGy-cm. COMPARISON: 10/17/2024 FINDINGS: Dependent atelectasis in bilateral lower lobes. Tiny left pleural effusion. Liver, gallbladder, pancr eas and bilateral adrenal glands are normal. Multiple splenic calcific location consistent with old g ranulomatous disease. 8.7 cm cyst at the left kidney. Enhancing urothelial thickening along the bilat eral ureters and renal collecting systems consistent with ascending urinary tract infection. Mild lef t hydroureteronephrosis. No obstructing urolithiasis. The bladder is decompressed around a Zheng cath eter with prominent wall thickening and mild stranding in the surrounding fat consistent with cystiti s. There is mild colonic diverticulosis with a sigmoid predominance. There is no adjacent inflammato ry change to suggest diverticulitis. Small bowel and appendix are normal. No free intraperitoneal gas or fluid. No pathologically enlarged abdominal or pelvic lymphadenopathy. Small right and moderate-s ized left fat-containing inguinal hernias. L4 laminectomy with moderate lumbar and mild lower thoraci c spondylosis. Spinal stimulator which extends into the posterior central canal at the level of T8-T9 adnexa and cephalad beyond the superior margin of the [id number]. Heterotopic ossification along the anterior margin of the left superior pubic ramus likely related to a chronic abductor avulsion in jury. There is fatty atrophy also likely related to old trauma along the proximal left rectus femoris muscle belly. IMPRESSION: 1. Wall thickening with surrounding inflammatory stranding consistent with cystitis and with likely b ilateral ascending urinary tract infections with enhancing urothelial thickening along the bilateral renal collecting systems are prominent on the left where there is mild associated hydroureteronephros is without evident obstructing urolithiasis. Correlate with urinalysis. 2. This is unchanged very small left pleural effusion. Reviewed, dictated and finalized at location A. [facility]ACH IMPRESSION: 1. Wall thickening with surrounding inflammatory stranding consistent with cyst itis and with likely bilateral ascending urinary tract infections with enhancin g urothelial thickening along the bilateral renal collecting systems are promin ent on the left where there is mild associated hydroureteronephrosis without ev ident obstructing urolithiasis. Correlate with urinalysis. 2. This is unchanged very small left pleural effusion.
[2024-11-06 12:48] LABS: Basophils Absolute Auto 0.1 K/mm3 (0.0-0.1); Basophils Percent Auto 0.4 % (0.2-1.2); Eosinophils Absolute Auto 0.1 K/mm3 (0-0.3); Eosinophils Percent Auto 0.4 % (0-4.4); Hematocrit 31.7 % (42.0-52.0); Hemoglobin 10.2 g/dL (14.0-18.0); Immature Granulocyte Absolute 0.07 K/mm3 (0.00-0.031); Immature Granulocyte Percent A 0.5 % (0-0.5); Lymphocytes Absolute Auto 1.58 K/mm3 (0.9-3.2); Lymphocytes Percent Auto 11.3 % (18.3-44.2); Mean Corpuscular HGB Conc 32.2 g/dl (32-36); Mean Corpuscular Hemoglobin 31.4 pg (26-34); Mean Corpuscular Volume 97.5 fl (80-100); Mean Platelet Volume 9.4 fl (7.4-10.4); Neutrophils Absolute Auto 10.3 K/mm3 (1.3-6.7); Neutrophils Percent Auto 73.4 % (45.5-73.1); Platelet Count Result 335 k/mm3 (150-375); Red Blood Count 3.25 M/mm3 (4.6-6.20); Red Cell Distribution Width 12.9 % (11.5-14.5)
[2024-11-06 12:57] LABS: Lactic Acid Reflex 1.2 mmol/L (0.7-2.0)
[2024-11-06 12:58] LABS: Alanine Aminotransferase 55 U/L (6-50); Albumin Level 2.9 g/dL (3.5-5.1); Alkaline Phosphatase 87 U/L (38-126); Anion Gap 3 mmol/L (4-12); Aspartate Amino Transferase 32 U/L (17-59); Bilirubin,Total 0.4 mg/dL (0.2-1.3); Blood Urea Nitrogen 26 mg/dL (9-20); Carbon Dioxide 29 mmol/L (22-30); Chloride 105 mmol/L (98-107); Estimated Glomerular Filt Rate > 60; Glucose 103 mg/dL (65-110); Sodium 137 mmol/L (137-145)
[2024-11-06 13:09] LABS: Add Urine Microscopic? YES; Appearance Urine Turbid (Clear); Color Urine Red (Yellow)
[2024-11-06 13:10] LABS: Bacteria Urine 2+ /hpf; RBC Urine >100 /hpf (0-2); Squamous Epithelial Cell Urine Many /hpf (Few); WBC Urine >100 /hpf (0-3)
--- NOTE | 2024-11-06 13:13 | ED_ITS ---
HPI - General Adult General Chief complaint: Recheck/Abnormal Lab/Rx Stated complaint: urinary sx Time Seen by Provider: 11/06/24 12:05 History of Present Illness HPI narrative: Patient is a 74-year-old male who presents ER for evaluation of his indwelling urinary catheter. Patient has paraplegia since a back surgery. His home health nurse identified that he had a white and red substance within the catheter in felt it be best that he be seen at the ER. Patient denies any fevers or chills or sweats. He has mild discomfort in lower abdomen with palpation. He was recently discharged from [facility] to home. Related Data Home Medications ?Medication ?Instructions ?Recorded ?Confirmed ?Last Taken ?Type Florastor 1 cap PO DAILY 10/14/24 11/06/24 Unknown History acetaminophen 2 tablet BYMOUTH Q6H PRN Pain 10/14/24 11/06/24 10/14/24 09:52 History 1000 mg docusate sodium 100 mg capsule 100 mg PO BID 10/14/24 11/06/24 10/13/24 21:02 History 100 mg polyethylene glycol 3350 17 gram 17 g PO BID PRN Constipation 10/14/24 11/06/24 10/12/24 08:58 History oral powder packet (Miralax) (First line) sennosides 8.6 mg tablet (senna) 8.6 mg PO BID 10/14/24 11/06/24 10/13/24 21:02 History Allergies Allergy/AdvReac Type Severity Reaction Status Date / Time Sulfa (Sulfonamide Allergy Unknown Unknown Verified 10/14/24 15:51 Antibiotics) Review of Systems 2 Review of Systems: All systems reviewed & are unremarkable except as noted in HPI and below Constitutional: Constitutional: Reports no additional constitutional complaints ENT: Reports system reviewed and no additional complaints, except as documented Cardiovascular: Cardiovascular: Reports no additional cardiovascular complaints Respiratory: Respiratory: Reports no additional respiratory complaints Gastrointestinal: Gastrointestinal: Reports no additional gastrointestinal complaints Genitourinary: Genitourinary: Reports hematuria, Denies oliguria and Denies dysuria [facility] Past Medical History Medical History (Updated 11/06/24 @ 21:37 by Morgan Bush MD) Chronic anemia Deep venous thrombosis Tethered spinal cord Benign prostatic hyperplasia Chronic kidney disease Neurogenic bladder Neurogenic bowel, not elsewhere classified Paraplegia, incomplete Thoracic myelopathy Bladder stones Bladder cancer Requiring excision of tumor Surgical History Surgical History (Updated 11/06/24 @ 15:20 by Svetlana Whyte PA-C) Spinal cord stimulator status History of bladder surgery excision of bladder tumor History of back surgery (10/02/24) posterior lumbar thoracic spinal fusion with instrumentation, 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 given compression of thoracic myelopathy at [place] Family History Family History Father Acute myocardial infarction, Onset Age: 57 Patient's father is Mother Patient's mother is Unknown Family history not known due to adoption Other Unknown family medical history Social History Social History (Updated 11/06/24 @ 16:00 by Svetlana Whyte PA-C) Social History: Surrogate medical decision maker: Griceldamelonie Delgado, spouse. Code status: Full code. Smoking status: Never smoker Second hand tobacco smoke exposure: No Alcohol intake: never Substance use: never Substance use type: does not use Do You Feel Safe in your Home?: Yes Lack of Transportation: No Lack of Food: Never True Current Housing: I Have Housing Concerned About Future Housing: No Difficulty Paying Gas/Electric Bills: No Difficulty Paying for Meds: No Currently Unemployed: No Education: High School Diploma/GED Difficulty w/ Childcare or Family Care: No Living arrangements: with family Additional living arrangements comments: Lives with spouse in [place]. They have 3 children. Occupation/Education: retired Additional occupation/education comments: [employer] Spiritual care concerns: No Exam 2 Narrative: GENERAL: Well-appearing, well-nourished, and in no acute distress. HEAD: Normocephalic, atraumatic. ENT: Mucous membranes moist. NECK: Supple. CHEST: Clear to auscultation. No respiratory distress. HEART: Regular rate and rhythm. Normal peripheral pulses. ABDOMEN: Soft, Mild lower abdominal discomfort, nondistended. EXTREMITIES:Chronic weakness of the lower extremities. No deformity/contracture. SKIN: Warm, dry, no rash. NEURO: Alert and oriented x3. PSYCH: Normal mood and affect. Course Course Emergency Course: Patient with ascending UTI with elevated white blood cell count and chronic immobility. Admit for observation. Ceftriaxone ordered. Vital Signs Vital signs: Vital Signs Temperature 98.7 F 11/06/24 11:38 Pulse Rate 66 12/16/24 11:38 Respiratory Rate 17 11/06/24 11:38 Blood Pressure 106/68 11/06/24 11:38 Pulse Oximetry 94 11/06/24 11:38 Oxygen Delivery Room Air 11/06/24 11:38 Temperature 97.8 F 11/06/24 17:00 Pulse Rate 63 11/06/24 17:00 Respiratory Rate 14 11/06/24 17:00 Blood Pressure 123/65 11/06/24 17:00 Pulse Oximetry 98 11/06/24 17:00 Oxygen Delivery Room Air 11/06/24 17:00 Medical Decision Making Vital Signs Vital Signs: Vital Signs Temperature 98.7 F 11/06/24 11:38 Pulse Rate 66 11/06/24 11:38 Respiratory Rate 17 11/06/24 11:38 Blood Pressure 106/68 11/06/24 11:38 Pulse Oximetry 94 11/06/24 11:38 Oxygen Delivery Room Air 11/06/24 11:38 Temperature 97.8 F 11/06/24 17:00 Pulse Rate 63 11/06/24 17:00 Respiratory Rate 14 11/06/24 17:00 Blood Pressure 123/65 11/06/24 17:00 Pulse Oximetry 98 11/06/24 17:00 Oxygen Delivery Room Air 11/06/24 17:00 Lab Data 11/06/24 12:32 11/06/24 12:32 Labs: Lab Results 11/06/24 11/06/24 Range/Units 12:32 12:33 WBC 14.0 H (4.5-10.0) K/mm3 RBC 3.25 L (4.6-6.20) M/mm3 Hgb 10.2 L (14.0-18.0) g/dL Hct 31.7 L (42.0-52.0) % MCV 97.5 (80-100) fl MCH 31.4 (26-34) pg MCHC 32.2 (32-36) g/dl RDW 12.9 (11.5-14.5) % Plt Count 335 (150-375) k/mm3 MPV 9.4 (7.4-10.4) fl Immature Gran % (Auto) 0.5 (0-0.5) % Neut % (Auto) 73.4 H (45.5-73.1) % Lymph % (Auto) 11.3 L (18.3-44.2) % Bradley % (Auto) 14.0 H (2.6-8.5) % Eos % (Auto) 0.4 (0-4.4) % Baso % (Auto) 0.4 (0.2-1.2) % Lymph # (Auto) 1.58 (0.9-3.2) K/mm3 Bradley # (Auto) 2.0 H (0.1-0.6) K/mm3 Eos # (Auto) 0.1 (0-0.3) K/mm3 Baso # (Auto) 0.1 (0.0-0.1) K/mm3 Abs Immat Gran (auto) 0.07 H (0.00-0.031) K/mm3 Absolute Neuts (auto) 10.3 H (1.3-6.7) K/mm3 Absolute Nucleated RBC 0.000 (0.0-0.012) K/mm3 Nucleated RBC % 0.0 (0.0-0.2) % Sodium 137 (137-145) mmol/L Potassium 4.0 (3.4-5.0) mmol/L Chloride 105 (98-107) mmol/L Carbon Dioxide 29 (22-30) mmol/L Anion Gap 3 L (4-12) mmol/L BUN 26 H (9-20) mg/dL Creatinine 1.10 (0.7-1.3) mg/dL Estim Creat Clear Calc Not Reportable Estimated GFR > 60 (59 - ) Glucose 103 (65-110) mg/dL Lactic Acid 1.2 (0.7-2.0) mmol/L Calcium 9.0 (8.4-10.2) mg/dL Total Bilirubin 0.4 (0.2-1.3) mg/dL AST 32 (17-59) U/L ALT 55 H (6-50) U/L Alkaline Phosphatase 87 (38-126) U/L Total Protein 6.0 L (6.3-8.2) g/dL Albumin 2.9 L (3.5-5.1) g/dL Urine Color Red H (Yellow) Urine Appearance Turbid H (Clear) Urine pH TNP Ur Specific [place] TNP Urine Protein TNP Urine Glucose (UA) TNP Urine Ketones TNP Ur Blood (Man) TNP Urine Nitrate TNP Urine Bilirubin TNP Urine Urobilinogen TNP Leukocyte Esterase Rfl TNP Urine RBC >100 H (0-2) /hpf Urine WBC >100 H (0-3) /hpf Ur Squamous Epith Cells Many H (Few) /hpf Urine Bacteria 2+ H /hpf Urine Casts 3-5 Discharge Plan Discharge Clinical Impression: Cystitis Patient Disposition: Still a Patient Condition: Stable
--- NOTE | 2024-11-06 15:00 | PM.IMHP ---
H&P: HPI History of Present Illness Date/Time: 11/06/24 15:30 Chief Complaint: Home health nurse concerned about the color of urine in his Zheng catheter. 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 He was discharged home from [facility] yesterday and home health came in today to establish care. Home health nurse noticed cloudy, red-tinged urine in his catheter and when the patient reported suprapubic and lower back pain she encouraged him to come in for evaluation. He has no other complaints and denies fever, chills, sweats, nausea, and vomiting. In the ED: He was afebrile on arrival with stable vital signs. Labs are significant for WBC count of 14.0, hemoglobin 10.2, BUN 26, creatinine 1.10, total protein 6.0, albumin 2.9. Urine was red and turbid with 2+ bacteria, many squamous cells, and greater than 100 RBC and WBC per high-power field. CT of the abdomen and pelvis showed findings consistent with cystitis with likely bilateral ascending urinary tract infections and mild associated hydroureteronephrosis without evidence obstructing urolithiasis. He is being admitted in this setting for IV antibiotics. Review of Systems Review of Systems: 12 systems were reviewed and are negative except for as per HPI. [facility], [facility] Past Medical History Medical History Chronic anemia Deep venous thrombosis Tethered spinal cord Benign prostatic hyperplasia Chronic kidney disease Neurogenic bladder Neurogenic bowel, not elsewhere classified Paraplegia, incomplete Thoracic myelopathy Bladder stones Bladder cancer Requiring excision of tumor Surgical History Surgical History Spinal cord stimulator status History of bladder surgery excision of bladder tumor History of back surgery (10/02/24) posterior lumbar thoracic spinal fusion with instrumentation, 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 given compression of thoracic myelopathy at [place] Family History Family History Father Acute myocardial infarction, Onset Age: 57 Patient's father is Mother Patient's mother is Unknown Family history not known due to adoption Other Unknown family medical history Social History Social History Social History: Surrogate medical decision maker: Griceldamelonie Delgado, spouse. Code status: Full code. Smoking status: Never smoker Second hand tobacco smoke exposure: No Alcohol intake: never Substance use: never Substance use type: does not use Do You Feel Safe in your Home?: Yes Lack of Transportation: No Lack of Food: Never True Current Housing: I Have Housing Concerned About Future Housing: No Difficulty Paying Gas/Electric Bills: No Difficulty Paying for Meds: No Currently Unemployed: No Education: High School Diploma/GED Difficulty w/ Childcare or Family Care: No Living arrangements: with family Additional living arrangements comments: Lives with spouse in [place]. They have 3 children. Occupation/Education: retired Additional occupation/education comments: [employer] Spiritual care concerns: No Meds Home Medications and Allergies Home Medications ?Medication ?Instructions ?Recorded ?Confirmed ?Type Florastor 1 cap PO DAILY 10/14/24 11/06/24 History acetaminophen 2 tablet BYMOUTH Q6H PRN Pain 10/14/24 11/06/24 History docusate sodium 100 mg capsule 100 mg PO BID 10/14/24 11/06/24 History polyethylene glycol 3350 17 gram 17 g PO BID PRN Constipation 10/14/24 11/06/24 History oral powder packet (Miralax) (First line) sennosides 8.6 mg tablet (senna) 8.6 mg PO BID 10/14/24 11/06/24 History apixaban 5 mg tablet 5 mg PO BID #60 tabs 11/05/24 11/06/24 Rx baclofen 10 mg tablet 10 mg PO BID Spasms #30 tabs 11/05/24 11/06/24 Rx duloxetine 40 mg capsule,delayed 30 mg (0.75 x 40 mg) PO BID #60 11/05/24 11/06/24 Rx release caps finasteride 5 mg tablet 5 mg PO DAILY #30 tabs 11/05/24 11/06/24 Rx gabapentin 400 mg capsule 400 mg PO BID #60 caps 11/05/24 11/06/24 Rx lidocaine 4 % topical patch 1 patch transdermal DAILY #7 ea 11/05/24 11/06/24 Rx (Lidocaine Pain Relief) oxycodone 5 mg tablet 5 mg PO Q8H PRN Pain #21 tabs 11/05/24 11/06/24 Rx tamsulosin 0.4 mg capsule 0.4 mg PO HS #30 caps 11/05/24 11/06/24 Rx Allergies Allergy/AdvReac Type Severity Reaction Status Date / Time Sulfa (Sulfonamide Allergy Unknown Unknown Verified 10/14/24 15:51 Antibiotics) Vital Signs Vital Signs - 24 hr 11/06/24 11:38 11/06/24 11:43 11/06/24 11:44 Temperature 98.7 F Pulse Rate 66 Respiratory Rate 17 Blood Pressure 106/68 119/63 Pulse Oximetry 94 98 98 Oxygen Delivery Room Air 11/06/24 11:45 11/06/24 11:46 11/06/24 11:47 Temperature Pulse Rate Respiratory Rate Blood Pressure 106/68 Pulse Oximetry 97 95 96 Oxygen Delivery 11/06/24 11:48 11/06/24 12:03 11/06/24 12:15 Temperature Pulse Rate Respiratory Rate 17 Blood Pressure Pulse Oximetry 96 97 97 Oxygen Delivery 11/06/24 12:16 11/06/24 12:30 11/06/24 12:31 Temperature Pulse Rate Respiratory Rate Blood Pressure 116/67 115/69 Pulse Oximetry 98 95 96 Oxygen Delivery 11/06/24 12:45 11/06/24 12:46 11/06/24 13:00 Temperature Pulse Rate Respiratory Rate Blood Pressure 123/68 Pulse Oximetry 99 99 97 Oxygen Delivery 11/06/24 13:01 11/06/24 13:16 11/06/24 13:17 Temperature Pulse Rate Respiratory Rate Blood Pressure 113/70 126/64 Pulse Oximetry 100 98 97 Oxygen Delivery 11/06/24 13:35 11/06/24 13:36 11/06/24 13:45 Temperature Pulse Rate Respiratory Rate Blood Pressure 121/65 Pulse Oximetry 94 94 96 Oxygen Delivery 11/06/24 13:46 11/06/24 14:00 11/06/24 14:01 Temperature Pulse Rate Respiratory Rate Blood Pressure 124/65 121/63 Pulse Oximetry 97 96 96 Oxygen Delivery 11/06/24 14:15 11/06/24 14:16 11/06/24 14:36 Temperature Pulse Rate Respiratory Rate Blood Pressure 124/67 Pulse Oximetry 97 96 97 Oxygen Delivery 11/06/24 14:54 Temperature Pulse Rate Respiratory Rate Blood Pressure Pulse Oximetry 97 Oxygen Delivery Exam Narrative: General: Chronically ill-appearing male in the semi-Bolivar position in bed. Weight: 97.1 kg. BMI: 29.0. HEENT: PERRL, EOMI. Sclera anicteric. Oral mucosa moist. Neck: Supple. Respiratory: Lungs are clear to auscultation bilaterally. Cardiovascular: Regular rate and rhythm with S1-S2. Gastrointestinal: Abdomen is soft and nondistended with positive bowel sounds. He is tender to palpation the suprapubic region, more so on the right. Equivocal CVA tenderness. No guarding or rebound tenderness. Genitourinary: Zheng catheter draining cloudy yellow urine. Skin: Warm and dry. There is breakdown on the over the coccyx and a small pressure ulcers noted on the left heel. Extremities: No cyanosis or clubbing. Trace lower extremity edema. Neurological: Alert and oriented. Cranial nerves 2-12 are grossly intact. Speech is clear. No facial asymmetry. Bilateral lower extremity weakness, much more profound on the right. Sensation decreased in the right lower extremity. Psychiatric: Pleasant and cooperative with appropriate mood and affect. H&P: Results Labs Labs: Short CBC 11/06/24 Range/Units 12:32 WBC 14.0 H (4.5-10.0) K/mm3 Hgb 10.2 L (14.0-18.0) g/dL Hct 31.7 L (42.0-52.0) % Plt Count 335 (150-375) k/mm3 BMP 11/06/24 12:32 Sodium 137 Potassium 4.0 Chloride 105 Carbon Dioxide 29 BUN 26 H Creatinine 1.10 Glucose 103 Calcium 9.0 Liver Function 11/06/24 Range/Units 12:32 Total Bilirubin 0.4 (0.2-1.3) mg/dL AST 32 (17-59) U/L ALT 55 H (6-50) U/L Alkaline Phosphatase 87 (38-126) U/L Albumin 2.9 L (3.5-5.1) g/dL Urine 11/06/24 Range/Units 12:33 Urine Color Red H (Yellow) Urine Appearance Turbid H (Clear) Urine pH TNP Ur Specific [place] TNP Urine Protein TNP Urine Glucose (UA) TNP Imaging Abdomen/Pelvis CT 11/06/24 13:37 IMPRESSION: 1. Wall thickening with surrounding inflammatory stranding consistent with cystitis and with likely bilateral ascending urinary tract infections with enhancing urothelial thickening along the bilateral renal collecting systems are prominent on the left where there is mild associated hydroureteronephrosis without evident obstructing urolithiasis. Correlate with urinalysis. 2. This is unchanged very small left pleural effusion. Assessment and Plan Assessment and plan (1) Urinary tract infection: Code(s): N39.0 - Urinary tract infection, site not specified Status: Acute (2) Neurogenic dysfunction of the urinary bladder: Code(s): N31.9 - Neuromuscular dysfunction of bladder, unspecified Status: Acute (3) Benign prostatic hyperplasia: Code(s): N40.0 - Benign prostatic hyperplasia without lower urinary tract symptoms Status: Acute (4) Chronic anemia: Code(s): D64.9 - Anemia, unspecified Status: Acute Plan The patient presented to the emergency department for evaluation of cloudy, red-tinged urine coming from his catheter as detailed in HPI. Labs, imaging, EKG, and all reports were personally reviewed. Urinalysis was grossly bloody however 2+ bacteria were seen on microscopy and CT scan shows evidence of ascending urinary tract infection. He has a history of bladder stones and bladder cancer and he reports having an appointment with Dr. Moreira in the next coming days. Consult Urology as it is unlikely that he will be able to make that appointment. Start ciprofloxacin based on previous cultures. Chronic anemia is relatively stable and will be monitored. Vital signs were reviewed and they are stable. His home medications will be reviewed and resumed as appropriate. Findings and treatment plan were discussed with the patient. Questions were solicited and answered to satisfaction. The patient's medical management will be taken over by the hospitalist team in a.m. Quality VTE Prophylaxis VTE prophylaxis: pharmacologic ordered (on apixaban for fairly recent DVT) Hospitalist MIPS Advance Care Plan I have confirmed that the patient's Advanced Care Plan is present, code status is documented, or surrogate decision maker is listed in patient medical record.: Yes Medication Reconciliation I have utilized all available resources to obtain, update and review the patients current medications (includes all prescriptions, OTC, herbals, cannabis, and nutritional supplements).: Yes
--- NOTE | 2024-11-06 16:59 | ADMGEN ---
This patient, Ryan Delgado, was admitted to Medical Room 255-01. Patient/family oriented to hospital policies and general routines including ID bracelet, bed and alarms, visiting hours, pain management, procedures, bathroom and other care routines, personal items, smoking policy, room service/diet, and visiting hours. Information on how to activate the Rapid Response Team has been discussed. Patient/Family are encouraged to report perceived risks to care and to ask questions if they do not understand what they are told or what they should do.
[2024-11-06] MEDS: CIPROFLOXACIN 400 MG/D5W 200ML 200 ML 200 MG IVPB (23:11)
[2024-11-06] MEDS: oxyCODONE HCL (*CRX) 5 MG TAB IR PO (23:12)
[2024-11-06] MEDS: APIXABAN 5 MG TABLET PO (23:12)
[2024-11-07] MEDS: ACETAMINOPHEN 325 MG TABLET 650 MG PO (00:18)
[2024-11-07 05:23] LABS: Hematocrit 30.2 % (42.0-52.0); Hemoglobin 9.7 g/dL (14.0-18.0); Mean Corpuscular HGB Conc 32.1 g/dl (32-36); Mean Corpuscular Hemoglobin 31.5 pg (26-34); Mean Corpuscular Volume 98.1 fl (80-100); Mean Platelet Volume 9.2 fl (7.4-10.4); Platelet Count Result 295 k/mm3 (150-375); Red Blood Count 3.08 M/mm3 (4.6-6.20); Red Cell Distribution Width 12.9 % (11.5-14.5); White Blood Count 9.5 K/mm3 (4.5-10.0)
[2024-11-07 05:37] LABS: Anion Gap 1 mmol/L (4-12); Blood Urea Nitrogen 20 mg/dL (9-20); Carbon Dioxide 29 mmol/L (22-30); Chloride 107 mmol/L (98-107); Estimated CRCL calculation 56 ml/min; Estimated Glomerular Filt Rate > 60; Glucose 106 mg/dL (65-110); Potassium 3.9 mmol/L (3.4-5.0); Sodium 137 mmol/L (137-145)
[2024-11-07 05:39] VITALS: BP 127/55; PULSE 69; RESP 18; TEMP 36.3; O2SAT 97
[2024-11-07] MEDS: CIPROFLOXACIN 400 MG/D5W 200ML 200 ML 200 MG IVPB ×3 (06:00→21:24)
[2024-11-07] MEDS: FINASTERIDE 5 MG TABLET PO (10:14)
[2024-11-07] MEDS: SACCHAROMYCES BOULARDII 250 MG CAPSULE PO (10:14)
[2024-11-07] MEDS: GABAPENTIN 400 MG CAPSULE PO ×2 (10:14→17:25)
[2024-11-07] MEDS: APIXABAN 5 MG TABLET PO ×2 (10:14→21:24)
[2024-11-07] MEDS: SENNOSIDES 8.6 MG TABLET PO ×2 (10:15→21:24)
[2024-11-07] MEDS: BACLOFEN 10 MG TABLET PO ×2 (10:15→17:25)
[2024-11-07] MEDS: DULoxetine HCL 30 MG CAPSULE.DR PO ×2 (10:15→17:25)
[2024-11-07] MEDS: DOCUSATE SODIUM 100 MG CAPSULE PO ×2 (10:15→21:24)
[2024-11-07] MEDS: oxyCODONE HCL (*CRX) 5 MG TAB IR PO (10:18)
--- NOTE | 2024-11-07 10:43 | P.PNIM_ITS ---
Progress Note: A&P Assessment and Plan (1) Urinary tract infection: Code(s): N39.0 - Urinary tract infection, site not specified Status: Acute Assessment and Plan: - Urine culture pending. - Currently on Cipro IV. - Previous urine culture grew pansensitive pseudomonas aeruginosa. - Continue current abx treatment. - Follow cultures. (2) Neurogenic dysfunction of the urinary bladder: Code(s): N31.9 - Neuromuscular dysfunction of bladder, unspecified Status: Acute Assessment and Plan: - Fonseca changed on admission. - Failed previous voiding trials. - Maintain fonseca catheter. (3) Benign prostatic hyperplasia: Code(s): N40.0 - Benign prostatic hyperplasia without lower urinary tract symptoms Status: Acute Assessment and Plan: - Continue fonseca. - Continue f/u with pcp. - Continue finasteride and tamsulosin. (4) Chronic anemia: Code(s): D64.9 - Anemia, unspecified Status: Acute Assessment and Plan: - Hgb appears baseline. - No obvious signs of bleeding. - Continue to monitor closely. (5) Postoperative deep vein thrombosis (DVT): Code(s): T81.89XA - Other complications of procedures, not elsewhere classified, initial encounter; I82.409 - Acute embolism and thrombosis of unspecified deep veins of unspecified lower extremity Status: Acute Assessment and Plan: - Continue apixaban. Time Spent With Patient Time with patient: 15 - 25 minutes Subjective Date/time seen: 11/07/24 10:43 Patient states he feels alright. States his urine looks much better today as it was dark and was having pus around his penis yesterday. Interval history: Patient calm on bedrest and looks to be in no acute distress. Patient with chron ic fonseca from urine retention and admitted for UTI. Review of Systems Review of Systems: 12 systems were reviewed and are negativ e except for as per HPI. Exam Narrative: General: Fair appearing pleasant gentleman but in no acute distress. HEENT: PERRL, EOMI. Sclera anicteric. Oral mucosa moist. Neck: Supple. Respiratory: Lungs are clear to auscultation bilaterally. Cardiovascular: Regular rate and rhythm with S1-S2. Gastrointestinal: Abdomen soft, nondistended, non-tender, +ve bowel sounds X 4 quadrants. Genitourinary: Fonseca catheter with clear yellow urine. Skin: Warm and dry. There is breakdown on the over the coccyx and a small pressure ulcers noted on the left heel. Extremities: No cyanosis or clubbing. Trace lower extremity edema. Neurological: Alert and oriented. Cranial nerves 2-12 are grossly intact. Sensation decreased to tad. LE. Psychiatric: Pleasant and cooperative with appropriate mood and affect. Objective Data Vital Signs Vital Signs: Vital Signs - 24 hr 11/06/24 11:38 11/06/24 11:43 11/06/24 11:44 Temperature 98.7 F Pulse Rate 66 Respiratory Rate 17 Blood Pressure 106/68 119/63 Pulse Oximetry 94 98 98 Oxygen Delivery Room Air 11/06/24 11:45 11/06/24 11:46 11/06/24 11:47 Temperature Pulse Rate Respiratory Rate Blood Pressure 106/68 Pulse Oximetry 97 95 96 Oxygen Delivery 11/06/24 11:48 11/06/24 12:03 11/06/24 12:15 Temperature Pulse Rate Respiratory Rate 17 Blood Pressure Pulse Oximetry 96 97 97 Oxygen Delivery 11/06/24 12:16 11/06/24 12:30 11/06/24 12:31 Temperature Pulse Rate Respiratory Rate Blood Pressure 116/67 115/69 Pulse Oximetry 98 95 96 Oxygen Delivery 11/06/24 12:45 11/06/24 12:46 11/06/24 13:00 Temperature Pulse Rate Respiratory Rate Blood Pressure 123/68 Pulse Oximetry 99 99 97 Oxygen Delivery 11/06/24 13:01 11/06/24 13:16 11/06/24 13:17 Temperature Pulse Rate Respiratory Rate Blood Pressure 113/70 126/64 Pulse Oximetry 100 98 97 Oxygen Delivery 11/06/24 13:35 11/06/24 13:36 11/06/24 13:45 Temperature Pulse Rate Respiratory Rate Blood Pressure 121/65 Pulse Oximetry 94 94 96 Oxygen Delivery 11/06/24 13:46 11/06/24 14:00 11/06/24 14:01 Temperature Pulse Rate Respiratory Rate Blood Pressure 124/65 121/63 Pulse Oximetry 97 96 96 Oxygen Delivery 11/06/24 14:15 11/06/24 14:16 11/06/24 14:36 Temperature Pulse Rate Respiratory Rate Blood Pressure 124/67 Pulse Oximetry 97 96 97 Oxygen Delivery 11/06/24 14:54 11/06/24 15:00 11/06/24 15:01 Temperature Pulse Rate Respiratory Rate Blood Pressure 135/71 Pulse Oximetry 97 99 95 Oxygen Delivery 11/06/24 15:15 11/06/24 15:16 11/06/24 15:30 Temperature Pulse Rate Respiratory Rate Blood Pressure 116/86 Pulse Oximetry 96 100 100 Oxygen Delivery 11/06/24 15:31 11/06/24 15:45 11/06/24 15:46 Temperature Pulse Rate Respiratory Rate Blood Pressure 126/68 119/67 Pulse Oximetry 97 99 99 Oxygen Delivery 11/06/24 16:00 11/06/24 16:01 11/06/24 17:00 Temperature 97.8 F Pulse Rate 63 Respiratory Rate 14 Blood Pressure 133/75 123/65 Pulse Oximetry 98 97 98 Oxygen Delivery 11/06/24 17:00 11/06/24 22:00 11/07/24 05:39 Temperature 98.2 F 97.3 F L Pulse Rate 66 69 Respiratory Rate 16 18 Blood Pressure 131/62 127/55 L Pulse Oximetry 96 97 Oxygen Delivery Room Air Intake/Output Intake/Output: Intake & Output 11/04/24 11/05/24 11/06/24 11/07/24 23:59 23:59 23:59 23:59 Intake Total 740 840 Output Total 700 1100 Balance 40 -260 Meds/Results Medications: Active Medications Generic Name Dose Route Start Last Admin Trade Name Freq PRN Reason Stop Dose Admin Acetaminophen 650 mg 11/06/24 14:52 11/07/24 00:18 Acetaminophen 325 Mg Tablet PO 650 mg Q4H PRN Administration Mild Pain (1-3) or Fever Apixaban 5 mg 11/06/24 22:20 11/07/24 10:14 Apixaban 5 Mg Tablet PO 5 mg Q12HR FENG Administration Baclofen 10 mg 11/07/24 09:00 11/07/24 10:15 Baclofen 10 Mg Tablet PO 10 mg BID FENG Administration Docusate Sodium 100 mg 11/07/24 09:00 11/07/24 10:15 Docusate Sodium 100 Mg Capsule PO 100 mg Q12HR FENG Administration Duloxetine HCl 30 mg 11/07/24 09:00 11/07/24 10:15 Duloxetine Hcl 30 Mg Capsule.Dr PO 30 mg BID FENG Administration Finasteride 5 mg 11/07/24 09:00 11/07/24 10:14 Finasteride 5 Mg Tablet PO 5 mg DAILY [facility] Administration Gabapentin 400 mg 11/07/24 09:00 11/07/24 10:14 Gabapentin 400 Mg Capsule PO 400 mg BID [facility] Administration Hydromorphone HCl 0.5 mg 11/06/24 14:52 Hydromorphone Hcl Inj (*Crx) 1 Mg/Ml Syr IV PUSH Q4H PRN Pain Rated 7-10 Ciprofloxacin/Dextrose 200 mls @ 200 mls/hr 11/06/24 22:30 11/07/24 06:00 Cipro 400 Mg/D5w 200 Ml IVPB 200 mls/hr Q8HR [facility] Administration Lidocaine 1 patch 11/07/24 09:00 11/07/24 10:15 Lidocaine 5% Patch TRANSDERM Not Given DAILY [facility] Ondansetron HCl 4 mg 11/06/24 14:52 Ondansetron Inj 4 Mg/2 Ml Vial IV PUSH Q4H PRN Nausea Oxycodone HCl 5 mg 11/06/24 15:29 Oxycodone Hcl (*Crx) 5 Mg Tab Ir PO Q8H PRN Pain Rated 4-6 Oxycodone HCl 5 mg 11/06/24 22:19 11/07/24 10:18 Oxycodone Hcl (*Crx) 5 Mg Tab Ir PO 5 mg Q8H PRN Administration Pain 7-10 Polyethylene Glycol 17 gm 11/06/24 22:19 Polyethylene Glycol 3350 17 Gm Powd.Pack PO BID PRN Constipation (First line) Saccharomyces Boulardii 250 mg 11/07/24 09:00 11/07/24 10:14 Saccharomyces Boulardii 250 Mg Capsule PO 250 mg DAILY [facility] Administration Senna 8.6 mg 11/07/24 09:00 11/07/24 10:15 Sennosides 8.6 Mg Tablet PO 8.6 mg Q12HR [facility] Administration Tamsulosin HCl 0.4 mg 11/07/24 21:00 Tamsulosin Hcl 0.4 Mg Capsule PO [facility] Radiology Results: ITS Impressions Abdomen/Pelvis CT 11/06/24 13:37 IMPRESSION: 1. Wall thickening with surrounding inflammatory stranding consistent with cystitis and with likely bilateral ascending urinary tract infections with enhancing urothelial thickening along the bilateral renal collecting systems are prominent on the left where there is mild associated hydroureteronephrosis without evident obstructing urolithiasis. Correlate with urinalysis. 2. This is unchanged very small left pleural effusion. Labs Labs: Laboratory Results - last 24 hr 11/06/24 11/06/24 11/07/24 12:32 12:33 05:00 WBC 14.0 H 9.5 RBC 3.25 L 3.08 L Hgb 10.2 L 9.7 L Hct 31.7 L 30.2 L MCV 97.5 98.1 MCH 31.4 31.5 MCHC 32.2 32.1 RDW 12.9 12.9 Plt Count 335 295 MPV 9.4 9.2 Immature Gran % (Auto) 0.5 Neut % (Auto) 73.4 H Lymph % (Auto) 11.3 L [place] % (Auto) 14.0 H Eos % (Auto) 0.4 Baso % (Auto) 0.4 Lymph # (Auto) 1.58 [place] # (Auto) 2.0 H Eos # (Auto) 0.1 Baso # (Auto) 0.1 Abs Immat Gran (auto) 0.07 H Absolute Neuts (auto) 10.3 H Absolute Nucleated RBC 0.000 Nucleated RBC % 0.0 Sodium 137 137 Potassium 4.0 3.9 Chloride 105 107 Carbon Dioxide 29 29 Anion Gap 3 L 1 L BUN 26 H 20 Creatinine 1.10 1.10 Estim Creat Clear Calc Not Reportable 56 Estimated GFR > 60 > 60 Glucose 103 106 Lactic Acid 1.2 Calcium 9.0 9.0 Magnesium 2.0 Total Bilirubin 0.4 AST 32 ALT 55 H Alkaline Phosphatase 87 Total Protein 6.0 L Albumin 2.9 L Urine Color Red H Urine Appearance Turbid H Urine pH TNP Ur Specific [place] TNP Urine Protein TNP Urine Glucose (UA) TNP Urine Ketones TNP Ur Blood (Man) TNP Urine Nitrate TNP Urine Bilirubin TNP Urine Urobilinogen TNP Leukocyte Esterase Rfl TNP Urine RBC >100 H Urine WBC >100 H Ur Squamous Epith Cells Many H Urine Bacteria 2+ H Urine Casts 3-5 Quality VTE Prophylaxis VTE prophylaxis: pharmacologic ordered (on apixaban for fairly recent DVT) Hospitalist MIPS Advance Care Plan I have confirmed that the patient's Advanced Care Plan is present, code status is documented, or surrogate decision maker is listed in patient medical record.: Yes Medication Reconciliation I have utilized all available resources to obtain, update and review the patients current medications (includes all prescriptions, OTC, herbals, cannabis, and nutritional supplements).: Yes
[2024-11-07 13:27] VITALS: BMI 29.0
[2024-11-07 13:49] VITALS: BP 126/54; PULSE 72; RESP 18; TEMP 36.3; O2SAT 98
[2024-11-07 14:00] VITALS: BP 126/54; PULSE 72; RESP 18; TEMP 36.3; O2SAT 98
--- NOTE | 2024-11-07 16:17 | P.CONUR_ITS ---
Assessment and Plan Assessment and plan (1) Cystitis: Code(s): N30.90 - Cystitis, unspecified without hematuria Status: Acute Assessment and Plan: For no evidence of stones i.e. bladder stones on CT scan. Urine is clearing at this time. He does have Gram-negative bacilli id is still pending with sensitivities. Simply needs appropriate antibiotics pending culture results. (2) Neurogenic bladder: Code(s): N31.9 - Neuromuscular dysfunction of bladder, unspecified Status: Acute Assessment and Plan: We most likely will require chronic indwelling Zheng or learn intermittent catheterization until he becomes more active and mobile. He has an outpatient appointment on December 06 with our nurse practitioner and is to maintain that for catheter change at that time. Urology Consult Note HPI Date Seen: 11/07/24 Time Seen: 16:17 Requesting Physician: Alberto Davalos MD Primary Care Provider: Sj Benson, Consult Narrative Reason for consult: Urinary retention and cystitis Narrative: Ryan Delgado is a 74 year old male who has seen Dr Moreira in the recent past. He has an unfortunate history of incomplete paraplegia. He has urinary retention with indwelling Zheng. He has failed 2 voiding trials as of date. Patient has very limited mobility is going through rehab. He needs a Dany lift at home. Patient was admitted with some weakness as well as discolored urine and was found to have a bad cystitis with an elevated white count. His urine culture is growing out Gram-negative bacilli. PMF Past Medical History Medical History Chronic anemia Deep venous thrombosis Tethered spinal cord Benign prostatic hyperplasia Chronic kidney disease Neurogenic bladder Neurogenic bowel, not elsewhere classified Paraplegia, incomplete Thoracic myelopathy Bladder stones Bladder cancer Requiring excision of tumor Surgical History Surgical History Spinal cord stimulator status History of bladder surgery excision of bladder tumor History of back surgery (10/02/24) posterior lumbar thoracic spinal fusion with instrumentation, 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 given compression of thoracic myelopathy at [place] Family History Family History Father Acute myocardial infarction, Onset Age: 57 Patient's father is Mother Patient's mother is Unknown Family history not known due to adoption Other Unknown family medical history Social History Social History Social History: Surrogate medical decision maker: Gricelda Delgado, spouse. Code status: Full code. Smoking status: Never smoker Second hand tobacco smoke exposure: No Alcohol intake: never Substance use: never Substance use type: does not use Do You Feel Safe in your Home?: Yes Lack of Transportation: No Lack of Food: Never True Current Housing: I Have Housing Concerned About Future Housing: No Difficulty Paying Gas/Electric Bills: No Difficulty Paying for Meds: No Currently Unemployed: No Education: High School Diploma/GED Difficulty w/ Childcare or Family Care: No Living arrangements: with family Additional living arrangements comments: Lives with spouse in [place]. They have 3 children. Occupation/Education: retired Additional occupation/education comments: [employer] Spiritual care concerns: No Meds Home Medications and Allergies Home Medications ?Medication ?Instructions ?Recorded ?Confirmed ?Type Florastor 1 cap PO DAILY 10/14/24 11/06/24 History acetaminophen 2 tablet BYMOUTH Q6H PRN Pain 10/14/24 11/06/24 History docusate sodium 100 mg capsule 100 mg PO BID 10/14/24 11/06/24 History polyethylene glycol 3350 17 gram 17 g PO BID PRN Constipation 10/14/24 11/06/24 History oral powder packet (Miralax) (First line) sennosides 8.6 mg tablet (senna) 8.6 mg PO BID 10/14/24 11/06/24 History apixaban 5 mg tablet 5 mg PO BID #60 tabs 11/05/24 11/06/24 Rx baclofen 10 mg tablet 10 mg PO BID Spasms #30 tabs 11/05/24 11/06/24 Rx duloxetine 40 mg capsule,delayed 30 mg (0.75 x 40 mg) PO BID #60 11/05/24 11/06/24 Rx release caps finasteride 5 mg tablet 5 mg PO DAILY #30 tabs 11/05/24 11/06/24 Rx gabapentin 400 mg capsule 400 mg PO BID #60 caps 11/05/24 11/06/24 Rx lidocaine 4 % topical patch 1 patch transdermal DAILY #7 ea 11/05/24 11/06/24 Rx (Lidocaine Pain Relief) oxycodone 5 mg tablet 5 mg PO Q8H PRN Pain #21 tabs 11/05/24 11/06/24 Rx tamsulosin 0.4 mg capsule 0.4 mg PO HS #30 caps 11/05/24 11/06/24 Rx Allergies Allergy/AdvReac Type Severity Reaction Status Date / Time Sulfa (Sulfonamide Allergy Unknown Unknown Verified 10/14/24 15:51 Antibiotics) Vital Signs Vital Signs - 24 hr 11/06/24 17:00 11/06/24 17:00 11/06/24 22:00 Temperature 36.6 C 36.8 C Pulse Rate 63 66 Respiratory Rate 14 16 Blood Pressure 123/65 131/62 Pulse Oximetry 98 96 Oxygen Delivery Room Air 11/07/24 05:39 11/07/24 10:18 11/07/24 13:49 Temperature 36.3 C L 36.3 C L Pulse Rate 69 72 Respiratory Rate 18 18 Blood Pressure 127/55 L 126/54 L Pulse Oximetry 97 98 Oxygen Delivery Room Air 11/07/24 14:00 Temperature 36.3 C L Pulse Rate 72 Respiratory Rate 18 Blood Pressure 126/54 L Pulse Oximetry 98 Oxygen Delivery Exam 2 Const: General: cooperative and comfortable Resp: Effort & Inspection: normal respiratory effort Cardio: Rate: regular rate Rhythm: regular rhythm Urinary Catheter: Urinary Catheter: patent and draining and urine clear Results Labs 11/07/24 05:00 11/07/24 05:00 Labs: Short CBC 11/07/24 Range/Units 05:00 WBC 9.5 (4.5-10.0) K/mm3 Hgb 9.7 L (14.0-18.0) g/dL Hct 30.2 L (42.0-52.0) % Plt Count 295 (150-375) k/mm3 BMP 11/07/24 05:00 Sodium 137 Potassium 3.9 Chloride 107 Carbon Dioxide 29 BUN 20 Creatinine 1.10 Glucose 106 Calcium 9.0
[2024-11-07 19:48] VITALS: BP 114/60; PULSE 70; RESP 20; TEMP 35.9; O2SAT 100
[2024-11-07] MEDS: TAMSULOSIN HCL 0.4 MG CAPSULE PO (21:24)
[2024-11-08] MEDS: oxyCODONE HCL (*CRX) 5 MG TAB IR PO ×2 (02:43→20:25)
[2024-11-08] MEDS: BACLOFEN 10 MG TABLET PO ×3 (03:04→16:57)
[2024-11-08 04:38] VITALS: BP 124/60; PULSE 68; RESP 20; TEMP 35.9; O2SAT 97
[2024-11-08] MEDS: CIPROFLOXACIN 400 MG/D5W 200ML 200 ML 200 MG IVPB (05:37)
[2024-11-08 08:11] LABS: Basophils Absolute Auto 0.1 K/mm3 (0.0-0.1); Basophils Percent Auto 0.6 % (0.2-1.2); Eosinophils Absolute Auto 0.1 K/mm3 (0-0.3); Eosinophils Percent Auto 1.2 % (0-4.4); Hematocrit 30.2 % (42.0-52.0); Hemoglobin 9.7 g/dL (14.0-18.0); Immature Granulocyte Absolute 0.04 K/mm3 (0.00-0.031); Immature Granulocyte Percent A 0.5 % (0-0.5); Lymphocytes Absolute Auto 1.69 K/mm3 (0.9-3.2); Lymphocytes Percent Auto 20.8 % (18.3-44.2); Mean Corpuscular HGB Conc 32.1 g/dl (32-36); Mean Corpuscular Hemoglobin 31.6 pg (26-34); Mean Corpuscular Volume 98.4 fl (80-100); Monocytes Absolute Auto 1.1 K/mm3 (0.1-0.6); Monocytes Percent Auto 14.1 % (2.6-8.5); Neutrophils Absolute Auto 5.1 K/mm3 (1.3-6.7); Neutrophils Percent Auto 62.8 % (45.5-73.1); Platelet Count Result 282 k/mm3 (150-375); Red Blood Count 3.07 M/mm3 (4.6-6.20); Red Cell Distribution Width 12.6 % (11.5-14.5); White Blood Count 8.1 K/mm3 (4.5-10.0)
[2024-11-08 08:21] LABS: Alanine Aminotransferase 38 U/L (6-50); Albumin Level 2.8 g/dL (3.5-5.1); Alkaline Phosphatase 71 U/L (38-126); Anion Gap 1 mmol/L (4-12); Aspartate Amino Transferase 25 U/L (17-59); Bilirubin,Total 0.4 mg/dL (0.2-1.3); Blood Urea Nitrogen 19 mg/dL (9-20); Calcium 9.1 mg/dL (8.4-10.2); Carbon Dioxide 31 mmol/L (22-30); Chloride 107 mmol/L (98-107); Estimated CRCL calculation 48 ml/min; Estimated Glomerular Filt Rate 54; Glucose 104 mg/dL (65-110); Potassium 3.9 mmol/L (3.4-5.0); Sodium 139 mmol/L (137-145)
[2024-11-08] MEDS: DULoxetine HCL 30 MG CAPSULE.DR PO ×2 (08:39→16:57)
[2024-11-08] MEDS: FINASTERIDE 5 MG TABLET PO (08:39)
[2024-11-08] MEDS: APIXABAN 5 MG TABLET PO ×2 (08:39→20:25)
[2024-11-08] MEDS: SACCHAROMYCES BOULARDII 250 MG CAPSULE PO (08:39)
[2024-11-08 08:40] VITALS: RESP 20; O2SAT 97
[2024-11-08] MEDS: GABAPENTIN 400 MG CAPSULE PO ×2 (08:40→16:57)
[2024-11-08] MEDS: SENNOSIDES 8.6 MG TABLET PO ×2 (08:40→20:25)
[2024-11-08] MEDS: DOCUSATE SODIUM 100 MG CAPSULE PO ×2 (08:40→20:25)
--- NOTE | 2024-11-08 10:15 | WPDUROPN2 ---
Progress Note: A&P Assessment and Plan (1) Benign prostatic hyperplasia: Qualifiers: Lower urinary tract symptom presence: symptoms present Lower urinary tract symptom detail: urinary retention Qualified Code(s): N40.1 - Benign prostatic hyperplasia with lower urinary tract symptoms; R33.8 - Other retention of urine Code(s): N40.0 - Benign prostatic hyperplasia without lower urinary tract symptoms Status: Acute (2) Urinary tract infection: Qualifiers: Urinary tract infection type: catheter-associated UTI Indwelling urinary catheter type: indwelling urethral catheter Code(s): N39.0 - Urinary tract infection, site not specified Status: Acute (3) Neurogenic bladder: Code(s): N31.9 - Neuromuscular dysfunction of bladder, unspecified Status: Acute Plan No plan for inpatient urology intervention. Maintain indwelling Zheng catheter at discharge. Keep off tension. Continue culture-directed antibiotics for CAUTI. Recommend UPAK wipes for daily Zheng hygiene. Encourage oral fluid intake. Plan for outpatient follow-up 12/06/24 for catheter exchange. Signing off. Please call with questions. Subjective Subjective Date/Time Seen: 11/08/24 10:15 Interval history: NAEO overnight Zheng draining clear yellow urine Urine culture susceptibilities pending on IV Cipro Long discussion this morning re: daily Zheng hygiene Exam Const: General: comfortable and no acute distress Resp: Effort & Inspection: normal respiratory effort Urinary Catheter: Urinary Catheter: patent and draining and urine clear Neuro: Speech: normal speech Psych: Affect: normal affect Objective Data Vital Signs Vital Signs: Vital Signs - 24 hr 11/07/24 10:18 11/07/24 13:49 11/07/24 14:00 Temperature 97.4 F L 97.4 F L Pulse Rate 72 72 Respiratory Rate 18 18 Blood Pressure 126/54 L 126/54 L Pulse Oximetry 98 98 Oxygen Delivery Room Air 11/07/24 19:48 11/08/24 04:38 Temperature 96.7 F L 96.7 F L Pulse Rate 70 68 Respiratory Rate 20 20 Blood Pressure 114/60 124/60 Pulse Oximetry 100 97 Oxygen Delivery Intake/Output Intake/Output: Intake & Output 11/05/24 11/06/24 11/07/24 11/08/24 23:59 23:59 23:59 23:59 Intake Total 740 1800 1290 Output Total 700 2900 1700 Balance 40 -1100 -410 Meds/Results Medications: Active Medications Generic Name Dose Route Start Last Admin Trade Name Freq PRN Reason Stop Dose Admin Acetaminophen 650 mg 11/06/24 14:52 11/07/24 00:18 Acetaminophen 325 Mg Tablet PO 650 mg Q4H PRN Administration Mild Pain (1-3) or Fever Apixaban 5 mg 11/06/24 22:20 11/08/24 08:39 Apixaban 5 Mg Tablet PO 5 mg Q12HR FENG Administration Baclofen 10 mg 11/07/24 09:00 11/08/24 08:40 Baclofen 10 Mg Tablet PO 10 mg BID FENG Administration Baclofen 10 mg 11/08/24 02:53 11/08/24 03:04 Baclofen 10 Mg Tablet PO 10 mg DAILY PRN Administration Muscle Spasticity Ciprofloxacin 750 mg 11/08/24 15:00 Ciprofloxacin 250 Mg Tablet PO Q12HR FENG Docusate Sodium 100 mg 11/07/24 09:00 11/08/24 08:40 Docusate Sodium 100 Mg Capsule PO 100 mg Q12HR FENG Administration Duloxetine HCl 30 mg 11/07/24 09:00 11/08/24 08:39 Duloxetine Hcl 30 Mg Capsule.Dr PO 30 mg BID FENG Administration Finasteride 5 mg 11/07/24 09:00 11/08/24 08:39 Finasteride 5 Mg Tablet PO 5 mg DAILY [facility]ENG Administration Gabapentin 400 mg 11/07/24 09:00 11/08/24 08:40 Gabapentin 400 Mg Capsule PO 400 mg BID FENG Administration Hydromorphone HCl 0.5 mg 11/06/24 14:52 Hydromorphone Hcl Inj (*Crx) 1 Mg/Ml Syr IV PUSH Q4H PRN Pain Rated 7-10 Lidocaine 1 patch 11/07/24 09:00 11/08/24 08:40 Lidocaine 5% Patch TRANSDERM Not Given DAILY [facility] Ondansetron HCl 4 mg 11/06/24 14:52 Ondansetron Inj 4 Mg/2 Ml Vial IV PUSH Q4H PRN Nausea Oxycodone HCl 5 mg 11/06/24 15:29 Oxycodone Hcl (*Crx) 5 Mg Tab Ir PO Q8H PRN Pain Rated 4-6 Oxycodone HCl 5 mg 11/06/24 22:19 11/08/24 02:43 Oxycodone Hcl (*Crx) 5 Mg Tab Ir PO 5 mg Q8H PRN Administration Pain 7-10 Polyethylene Glycol 17 gm 11/06/24 22:19 Polyethylene Glycol 3350 17 Gm Powd.Pack PO BID PRN Constipation (First line) Saccharomyces Boulardii 250 mg 11/07/24 09:00 11/08/24 08:39 Saccharomyces Boulardii 250 Mg Capsule PO 250 mg DAILY FENG Administration Senna 8.6 mg 11/07/24 09:00 11/08/24 08:40 Sennosides 8.6 Mg Tablet PO 8.6 mg Q12HR [facility]ENG Administration Tamsulosin HCl 0.4 mg 11/07/24 21:00 11/07/24 21:24 Tamsulosin Hcl 0.4 Mg Capsule PO 0.4 mg HS [facility]ENG Administration Radiology Results: ITS Impressions Abdomen/Pelvis CT 11/06/24 13:37 IMPRESSION: 1. Wall thickening with surrounding inflammatory stranding consistent with cystitis and with likely bilateral ascending urinary tract infections with enhancing urothelial thickening along the bilateral renal collecting systems are prominent on the left where there is mild associated hydroureteronephrosis without evident obstructing urolithiasis. Correlate with urinalysis. 2. This is unchanged very small left pleural effusion. Labs Labs: Laboratory Results - last 24 hr 11/08/24 08:00 WBC 8.1 RBC 3.07 L Hgb 9.7 L Hct 30.2 L MCV 98.4 MCH 31.6 MCHC 32.1 RDW 12.6 Plt Count 282 MPV 9.0 Immature Gran % (Auto) 0.5 Neut % (Auto) 62.8 Lymph % (Auto) 20.8 [place] % (Auto) 14.1 H Eos % (Auto) 1.2 Baso % (Auto) 0.6 Lymph # (Auto) 1.69 [place] # (Auto) 1.1 H Eos # (Auto) 0.1 Baso # (Auto) 0.1 Abs Immat Gran (auto) 0.04 H Absolute Neuts (auto) 5.1 Absolute Nucleated RBC 0.000 Nucleated RBC % 0.0 Sodium 139 Potassium 3.9 Chloride 107 Carbon Dioxide 31 H Anion Gap 1 L BUN 19 Creatinine 1.30 Estim Creat Clear Calc 48 Estimated GFR 54 L Glucose 104 Calcium 9.1 Total Bilirubin 0.4 AST 25 ALT 38 Alkaline Phosphatase 71 Total Protein 6.0 L Albumin 2.8 L
--- NOTE | 2024-11-08 11:31 | PM.IMPN ---
Progress Note: A&P Assessment and Plan (1) Urinary tract infection: Qualifiers: Urinary tract infection type: catheter-associated UTI Indwelling urinary catheter type: indwelling urethral catheter Code(s): N39.0 - Urinary tract infection, site not specified Status: Acute Assessment and Plan: - Urine culture pending. - Currently on Cipro oral - Previous urine culture grew pansensitive pseudomonas aeruginosa. - Continue current abx treatment. - Follow culture gram negative bacilli, awaiting sensitivities. (2) Neurogenic dysfunction of the urinary bladder: Code(s): N31.9 - Neuromuscular dysfunction of bladder, unspecified Status: Acute Assessment and Plan: - Fonseca changed on admission. - Failed previous voiding trials. - Maintain fonseca catheter. (3) Benign prostatic hyperplasia: Qualifiers: Lower urinary tract symptom presence: symptoms present Lower urinary tract symptom detail: urinary retention Qualified Code(s): N40.1 - Benign prostatic hyperplasia with lower urinary tract symptoms; R33.8 - Other retention of urine Code(s): N40.0 - Benign prostatic hyperplasia without lower urinary tract symptoms Status: Acute Assessment and Plan: - Continue fonseca. - Continue f/u with pcp. - Continue finasteride and tamsulosin. (4) Chronic anemia: Code(s): D64.9 - Anemia, unspecified Status: Acute Assessment and Plan: - Hgb appears baseline. - No obvious signs of bleeding. - Continue to monitor closely. (5) Postoperative deep vein thrombosis (DVT): Code(s): T81.89XA - Other complications of procedures, not elsewhere classified, initial encounter; I82.409 - Acute embolism and thrombosis of unspecified deep veins of unspecified lower extremity Status: Acute Assessment and Plan: - Continue apixaban. (6) Sacral wound: Code(s): S31.000A - Unspecified open wound of lower back and pelvis without penetration into retroperitoneum, initial encounter Status: Acute Assessment and Plan: Wound care consulted Apply antifungal barrier cream to treat and protect. Turn q 2. Waffle air boots to bilateral heels. (7) Weakness: Code(s): R53.1 - Weakness Status: Acute Assessment and Plan: Add PT/OT (8) Xerosis of skin: Code(s): L85.3 - Xerosis cutis Status: Acute Assessment and Plan: Add Eucerin daily to legs and feet. Subjective Date/time seen: 11/08/24 11:31 Interval history: Patient reports pain in back is a 3 , constant, and aching. Patient denies chest pain, palpitations, shortness of breath, headache, dizziness, nausea, or vomiting. Patient reports that his left leg was spasming overnight and that he is starting to get more feeling in his left leg. Review of Systems Review of Systems: All systems reviewed & are unremarkable except as noted in HPI and below Exam Const: General: no acute distress and uncomfortable Eyes: Sclera: sclerae normal Resp: Effort & Inspection: normal respiratory effort Auscultation: clear to auscultation bilaterally Cardio: Rate: regular rate Rhythm: regular rhythm GI: GI Palp: Yes Soft to palpation Auscultation: normal bowel sounds Urinary Catheter: Urinary Catheter: patent and draining (yellow urine) Skin: Other: Warm and dry. There is breakdown on the over the coccyx and a small pressure ulcers noted on the left heel. Glue intact to upper spinal incision with no swelling or redness noted. Legs and feet dry. Neuro: Speech: normal speech Extrem: Other: Sensation decreased to tad. LE. Psych: Mental Status: mental status grossly normal Affect: normal affect Objective Data Vital Signs Vital Signs: Vital Signs - 24 hr 11/07/24 13:49 11/07/24 14:00 11/07/24 19:48 Temperature 97.4 F L 97.4 F L 96.7 F L Pulse Rate 72 72 70 Respiratory Rate 18 18 20 Blood Pressure 126/54 L 126/54 L 114/60 Pulse Oximetry 98 98 100 Oxygen Delivery 11/08/24 04:38 11/08/24 08:40 Temperature 96.7 F L Pulse Rate 68 Respiratory Rate 20 20 Blood Pressure 124/60 Pulse Oximetry 97 97 Oxygen Delivery Room Air Intake/Output Intake/Output: Intake & Output 11/05/24 11/06/24 11/07/24 11/08/24 23:59 23:59 23:59 23:59 Intake Total 740 1800 1290 Output Total 700 2900 1700 Balance 40 -1100 -410 Meds/Results Medications: Active Medications Generic Name Dose Route Start Last Admin Trade Name Freq PRN Reason Stop Dose Admin Acetaminophen 650 mg 11/06/24 14:52 11/07/24 00:18 Acetaminophen 325 Mg Tablet PO 650 mg Q4H PRN Administration Mild Pain (1-3) or Fever Apixaban 5 mg 11/06/24 22:20 11/08/24 08:39 Apixaban 5 Mg Tablet PO 5 mg Q12HR [facility] Administration Baclofen 10 mg 11/07/24 09:00 11/08/24 08:40 Baclofen 10 Mg Tablet PO 10 mg BID [facility]ENG Administration Baclofen 10 mg 11/08/24 02:53 11/08/24 03:04 Baclofen 10 Mg Tablet PO 10 mg DAILY PRN Administration Muscle Spasticity Ciprofloxacin 750 mg 11/08/24 15:00 Ciprofloxacin 250 Mg Tablet PO Q12HR [facility] Docusate Sodium 100 mg 11/07/24 09:00 11/08/24 08:40 Docusate Sodium 100 Mg Capsule PO 100 mg Q12HR [facility] Administration Duloxetine HCl 30 mg 11/07/24 09:00 11/08/24 08:39 Duloxetine Hcl 30 Mg Capsule.Dr PO 30 mg BID [facility]ENG Administration Finasteride 5 mg 11/07/24 09:00 11/08/24 08:39 Finasteride 5 Mg Tablet PO 5 mg DAILY [facility] Administration Gabapentin 400 mg 11/07/24 09:00 11/08/24 08:40 Gabapentin 400 Mg Capsule PO 400 mg BID [facility] Administration Hydromorphone HCl 0.5 mg 11/06/24 14:52 Hydromorphone Hcl Inj (*Crx) 1 Mg/Ml Syr IV PUSH Q4H PRN Pain Rated 7-10 Lidocaine 1 patch 11/07/24 09:00 11/08/24 08:40 Lidocaine 5% Patch TRANSDERM Not Given DAILY [facility] Ondansetron HCl 4 mg 11/06/24 14:52 Ondansetron Inj 4 Mg/2 Ml Vial IV PUSH Q4H PRN Nausea Oxycodone HCl 5 mg 11/06/24 15:29 Oxycodone Hcl (*Crx) 5 Mg Tab Ir PO Q8H PRN Pain Rated 4-6 Oxycodone HCl 5 mg 11/06/24 22:19 11/08/24 02:43 Oxycodone Hcl (*Crx) 5 Mg Tab Ir PO 5 mg Q8H PRN Administration Pain 7-10 Polyethylene Glycol 17 gm 11/06/24 22:19 Polyethylene Glycol 3350 17 Gm Powd.Pack PO BID PRN Constipation (First line) Saccharomyces Boulardii 250 mg 11/07/24 09:00 11/08/24 08:39 Saccharomyces Boulardii 250 Mg Capsule PO 250 mg DAILY [facility] Administration Senna 8.6 mg 11/07/24 09:00 11/08/24 08:40 Sennosides 8.6 Mg Tablet PO 8.6 mg Q12HR [facility] Administration Tamsulosin HCl 0.4 mg 11/07/24 21:00 11/07/24 21:24 Tamsulosin Hcl 0.4 Mg Capsule PO 0.4 mg HS [facility] Administration Radiology Results: ITS Impressions Abdomen/Pelvis CT 11/06/24 13:37 IMPRESSION: 1. Wall thickening with surrounding inflammatory stranding consistent with cystitis and with likely bilateral ascending urinary tract infections with enhancing urothelial thickening along the bilateral renal collecting systems are prominent on the left where there is mild associated hydroureteronephrosis without evident obstructing urolithiasis. Correlate with urinalysis. 2. This is unchanged very small left pleural effusion. Labs Labs: Laboratory Results - last 24 hr 11/08/24 08:00 WBC 8.1 RBC 3.07 L Hgb 9.7 L Hct 30.2 L MCV 98.4 MCH 31.6 MCHC 32.1 RDW 12.6 Plt Count 282 MPV 9.0 Immature Gran % (Auto) 0.5 Neut % (Auto) 62.8 Lymph % (Auto) 20.8 [place] % (Auto) 14.1 H Eos % (Auto) 1.2 Baso % (Auto) 0.6 Lymph # (Auto) 1.69 [place] # (Auto) 1.1 H Eos # (Auto) 0.1 Baso # (Auto) 0.1 Abs Immat Gran (auto) 0.04 H Absolute Neuts (auto) 5.1 Absolute Nucleated RBC 0.000 Nucleated RBC % 0.0 Sodium 139 Potassium 3.9 Chloride 107 Carbon Dioxide 31 H Anion Gap 1 L BUN 19 Creatinine 1.30 Estim Creat Clear Calc 48 Estimated GFR 54 L Glucose 104 Calcium 9.1 Total Bilirubin 0.4 AST 25 ALT 38 Alkaline Phosphatase 71 Total Protein 6.0 L Albumin 2.8 L Quality VTE Prophylaxis VTE prophylaxis: pharmacologic ordered (on apixaban for fairly recent DVT)
[2024-11-08 14:00] VITALS: BP 131/55; PULSE 65; RESP 18; TEMP 36.3; O2SAT 98
[2024-11-08 14:14] VITALS: BMI 10.0
[2024-11-08] MEDS: CIPROFLOXACIN 250 MG TABLET 750 MG PO ×2 (14:15→23:18)
[2024-11-08] MEDS: EUCERIN CREAM 454 GM JAR 1 APPLIC TOPICAL (15:37)
[2024-11-08 20:08] VITALS: BP 115/61; PULSE 69; RESP 16; TEMP 37.2; O2SAT 100
[2024-11-08] MEDS: TAMSULOSIN HCL 0.4 MG CAPSULE PO (20:25)
[2024-11-09 04:58] VITALS: BP 123/62; PULSE 65; RESP 18; TEMP 37.2; O2SAT 97
[2024-11-09] MEDS: oxyCODONE HCL (*CRX) 5 MG TAB IR PO ×2 (06:09→20:22)
[2024-11-09 06:49] LABS: Basophils Percent Auto 0.5 % (0.2-1.2); Eosinophils Absolute Auto 0.1 K/mm3 (0-0.3); Hemoglobin 9.9 g/dL (14.0-18.0); Immature Granulocyte Absolute 0.04 K/mm3 (0.00-0.031); Immature Granulocyte Percent A 0.5 % (0-0.5); Lymphocytes Absolute Auto 1.62 K/mm3 (0.9-3.2); Lymphocytes Percent Auto 21.2 % (18.3-44.2); Mean Corpuscular HGB Conc 31.9 g/dl (32-36); Mean Corpuscular Volume 97.2 fl (80-100); Mean Platelet Volume 9.3 fl (7.4-10.4); Monocytes Absolute Auto 0.9 K/mm3 (0.1-0.6); Monocytes Percent Auto 11.9 % (2.6-8.5); Neutrophils Percent Auto 64.9 % (45.5-73.1); Platelet Count Result 305 k/mm3 (150-375); Red Blood Count 3.19 M/mm3 (4.6-6.20); Red Cell Distribution Width 12.4 % (11.5-14.5); White Blood Count 7.6 K/mm3 (4.5-10.0)
[2024-11-09 06:58] LABS: Alanine Aminotransferase 38 U/L (6-50); Albumin Level 2.9 g/dL (3.5-5.1); Alkaline Phosphatase 73 U/L (38-126); Anion Gap 3 mmol/L (4-12); Aspartate Amino Transferase 23 U/L (17-59); Bilirubin,Total 0.4 mg/dL (0.2-1.3); Blood Urea Nitrogen 23 mg/dL (9-20); Calcium 9.1 mg/dL (8.4-10.2); Carbon Dioxide 27 mmol/L (22-30); Chloride 107 mmol/L (98-107); Estimated CRCL calculation 51 ml/min; Estimated Glomerular Filt Rate 59; Glucose 104 mg/dL (65-110); Potassium 3.8 mmol/L (3.4-5.0); Sodium 137 mmol/L (137-145)
[2024-11-09] MEDS: polyethylene glycoL 3350 17 GM POWD.PACK PO (08:53)
[2024-11-09] MEDS: CIPROFLOXACIN 250 MG TABLET 750 MG PO ×2 (08:53→20:23)
[2024-11-09 08:54] VITALS: RESP 18; O2SAT 97
[2024-11-09] MEDS: GABAPENTIN 400 MG CAPSULE PO ×2 (08:54→16:50)
[2024-11-09] MEDS: FINASTERIDE 5 MG TABLET PO (08:54)
[2024-11-09] MEDS: DULoxetine HCL 30 MG CAPSULE.DR PO ×2 (08:54→16:50)
[2024-11-09] MEDS: SACCHAROMYCES BOULARDII 250 MG CAPSULE PO (08:54)
[2024-11-09] MEDS: SENNOSIDES 8.6 MG TABLET PO ×2 (08:54→20:23)
[2024-11-09] MEDS: APIXABAN 5 MG TABLET PO ×2 (08:54→20:24)
[2024-11-09] MEDS: BACLOFEN 10 MG TABLET PO ×2 (08:54→16:50)
[2024-11-09] MEDS: DOCUSATE SODIUM 100 MG CAPSULE PO ×2 (08:54→20:23)
[2024-11-09] MEDS: EUCERIN CREAM 454 GM JAR 1 APPLIC TOPICAL (08:55)
[2024-11-09] MEDS: HYDROmorphone HCL INJ (*CRX) 1 MG/ML SYR 0.5 MG IV PUSH (09:09)
--- NOTE | 2024-11-09 11:56 | P.PNIM_ITS ---
Progress Note: A&P Assessment and Plan (1) Urinary tract infection: Qualifiers: Urinary tract infection type: catheter-associated UTI Indwelling urinary catheter type: indwelling urethral catheter Code(s): N39.0 - Urinary tract infection, site not specified Status: Acute Assessment and Plan: - Urine culture pending. - Currently on Cipro oral - Previous urine culture grew pansensitive pseudomonas aeruginosa. - Continue current abx treatment. - Follow culture gram negative bacilli, awaiting sensitivities. (2) Neurogenic dysfunction of the urinary bladder: Code(s): N31.9 - Neuromuscular dysfunction of bladder, unspecified Status: Acute Assessment and Plan: - Fonseca changed on admission. - Failed previous voiding trials. - Maintain fonseca catheter. (3) Benign prostatic hyperplasia: Qualifiers: Lower urinary tract symptom presence: symptoms present Lower urinary tract symptom detail: urinary retention Qualified Code(s): N40.1 - Benign prostatic hyperplasia with lower urinary tract symptoms; R33.8 - Other retention of urine Code(s): N40.0 - Benign prostatic hyperplasia without lower urinary tract symptoms Status: Acute Assessment and Plan: - Continue fonseca. - Continue f/u with pcp. - Continue finasteride and tamsulosin. (4) Chronic anemia: Code(s): D64.9 - Anemia, unspecified Status: Acute Assessment and Plan: - Hgb appears baseline. - No obvious signs of bleeding. - Continue to monitor closely. (5) Postoperative deep vein thrombosis (DVT): Code(s): T81.89XA - Other complications of procedures, not elsewhere classified, initial encounter; I82.409 - Acute embolism and thrombosis of unspecified deep veins of unspecified lower extremity Status: Acute Assessment and Plan: - Continue apixaban. (6) Sacral wound: Code(s): S31.000A - Unspecified open wound of lower back and pelvis without penetration into retroperitoneum, initial encounter Status: Acute Assessment and Plan: * Wound care consulted * Apply antifungal barrier cream to treat and protect. * Turn q 2. * Waffle air boots to bilateral heels. (7) Weakness: Code(s): R53.1 - Weakness Status: Acute Assessment and Plan: * Add PT/OT (8) Xerosis of skin: Code(s): L85.3 - Xerosis cutis Status: Acute Assessment and Plan: * Add Eucerin daily to legs and feet. Subjective Date/time seen: 11/09/24 11:56 Interval history: Patient sitting up in chair. Patient reports pain in back is an 8 , constant, and aching. Patient had just finished working with physical therapy. Patient denies chest pain, palpitations, shortness of breath, headache, dizziness, nausea, or vomiting. Review of Systems Review of Systems: All systems reviewed & are unremarkable except as noted in HPI and below Exam Const: General: no acute distress and uncomfortable Eyes: Sclera: sclerae normal Resp: Effort & Inspection: normal respiratory effort Auscultation: clear to auscultation bilaterally Cardio: Rate: regular rate Rhythm: regular rhythm GI: GI Palp: Yes Soft to palpation Auscultation: normal bowel sounds Urinary Catheter: Urinary Catheter: patent and draining (yellow urine) Skin: Other: Warm and dry. There is breakdown on the over the coccyx and a small pressure ulcers noted on the left heel. Glue intact to upper spinal incision with no swelling or redness noted. Legs and feet dry. Neuro: Speech: normal speech Extrem: Other: Sensation decreased to tad. LE. Psych: Mental Status: mental status grossly normal Affect: normal affect Objective Data Vital Signs Vital Signs: Vital Signs - 24 hr 11/08/24 14:00 11/08/24 14:14 11/08/24 20:00 Temperature 97.3 F L Pulse Rate 65 Respiratory Rate 18 Blood Pressure 131/55 L Pulse Oximetry 98 Oxygen Delivery Room Air Room Air 11/08/24 20:08 11/09/24 04:58 11/09/24 08:54 Temperature 99.0 F 98.9 F Pulse Rate 69 65 Respiratory Rate 16 18 18 Blood Pressure 115/61 123/62 Pulse Oximetry 100 97 97 Oxygen Delivery Room Air Intake/Output Intake/Output: Intake & Output 11/06/24 11/07/24 11/08/24 11/09/24 23:59 23:59 23:59 23:59 Intake Total 740 1800 1770 1040 Output Total 700 2900 3400 1250 Balance 40 -7431 -3430 210 Meds/Results Medications: Active Medications Generic Name Dose Route Start Last Admin Trade Name Freq PRN Reason Stop Dose Admin Acetaminophen 650 mg 11/06/24 14:52 11/07/24 00:18 Acetaminophen 325 Mg Tablet PO 650 mg Q4H PRN Administration Mild Pain (1-3) or Fever Apixaban 5 mg 11/06/24 22:20 11/09/24 08:54 Apixaban 5 Mg Tablet PO 5 mg Q12HR [facility] Administration Baclofen 10 mg 11/07/24 09:00 11/09/24 08:54 Baclofen 10 Mg Tablet PO 10 mg BID [facility] Administration Baclofen 10 mg 11/08/24 02:53 11/08/24 03:04 Baclofen 10 Mg Tablet PO 10 mg DAILY PRN Administration Muscle Spasticity Ciprofloxacin 750 mg 11/08/24 15:00 11/09/24 08:53 Ciprofloxacin 250 Mg Tablet PO 750 mg Q12HR [facility] Administration Docusate Sodium 100 mg 11/07/24 09:00 11/09/24 08:54 Docusate Sodium 100 Mg Capsule PO 100 mg Q12HR [facility] Administration Duloxetine HCl 30 mg 11/07/24 09:00 11/09/24 08:54 Duloxetine Hcl 30 Mg Capsule.Dr PO 30 mg BID [facility] Administration Finasteride 5 mg 11/07/24 09:00 11/09/24 08:54 Finasteride 5 Mg Tablet PO 5 mg DAILY [facility] Administration Gabapentin 400 mg 11/07/24 09:00 11/09/24 08:54 Gabapentin 400 Mg Capsule PO 400 mg BID [facility] Administration Hydromorphone HCl 0.5 mg 11/06/24 14:52 11/09/24 09:09 Hydromorphone Hcl Inj (*Crx) 1 Mg/Ml Syr IV PUSH 0.5 mg Q4H PRN Administration Pain Rated 7-10 Lidocaine 1 patch 11/07/24 09:00 11/09/24 08:54 Lidocaine 5% Patch TRANSDERM Not Given DAILY [facility] Multi-Ingred Cream/Lotion/Oil/Oint 1 applic 11/08/24 15:30 11/09/24 08:55 Eucerin Cream 454 Gm Jar TOPICAL 1 applic DAILY [facility] Administration Ondansetron HCl 4 mg 11/06/24 14:52 Ondansetron Inj 4 Mg/2 Ml Vial IV PUSH Q4H PRN Nausea Oxycodone HCl 5 mg 11/06/24 15:29 11/09/24 06:09 Oxycodone Hcl (*Crx) 5 Mg Tab Ir PO 5 mg Q8H PRN Administration Pain Rated 4-6 Oxycodone HCl 5 mg 11/06/24 22:19 11/08/24 02:43 Oxycodone Hcl (*Crx) 5 Mg Tab Ir PO 5 mg Q8H PRN Administration Pain 7-10 Polyethylene Glycol 17 gm 11/06/24 22:19 11/09/24 08:53 Polyethylene Glycol 3350 17 Gm Powd.Pack PO 17 gm BID PRN Administration Constipation (First line) Saccharomyces Boulardii 250 mg 11/07/24 09:00 11/09/24 08:54 Saccharomyces Boulardii 250 Mg Capsule PO 250 mg DAILY [facility] Administration Senna 8.6 mg 11/07/24 09:00 11/09/24 08:54 Sennosides 8.6 Mg Tablet PO 8.6 mg Q12HR [facility] Administration Tamsulosin HCl 0.4 mg 11/07/24 21:00 11/08/24 20:25 Tamsulosin Hcl 0.4 Mg Capsule PO 0.4 mg HS [facility] Administration Radiology Results: ITS Impressions Abdomen/Pelvis CT 11/06/24 13:37 IMPRESSION: 1. Wall thickening with surrounding inflammatory stranding consistent with cystitis and with likely bilateral ascending urinary tract infections with enhancing urothelial thickening along the bilateral renal collecting systems are prominent on the left where there is mild associated hydroureteronephrosis without evident obstructing urolithiasis. Correlate with urinalysis. 2. This is unchanged very small left pleural effusion. Labs Labs: Laboratory Results - last 24 hr 11/09/24 06:05 WBC 7.6 RBC 3.19 L Hgb 9.9 L Hct 31.0 L MCV 97.2 MCH 31.0 MCHC 31.9 L RDW 12.4 Plt Count 305 MPV 9.3 Immature Gran % (Auto) 0.5 Neut % (Auto) 64.9 Lymph % (Auto) 21.2 [place] % (Auto) 11.9 H Eos % (Auto) 1.0 Baso % (Auto) 0.5 Lymph # (Auto) 1.62 [place] # (Auto) 0.9 H Eos # (Auto) 0.1 Baso # (Auto) 0.0 Abs Immat Gran (auto) 0.04 H Absolute Neuts (auto) 5.0 Absolute Nucleated RBC 0.000 Nucleated RBC % 0.0 Sodium 137 Potassium 3.8 Chloride 107 Carbon Dioxide 27 Anion Gap 3 L BUN 23 H Creatinine 1.20 Estim Creat Clear Calc 51 Estimated GFR 59 Glucose 104 Calcium 9.1 Total Bilirubin 0.4 AST 23 ALT 38 Alkaline Phosphatase 73 Total Protein 6.0 L Albumin 2.9 L Quality VTE Prophylaxis VTE prophylaxis: pharmacologic ordered (on apixaban for fairly recent DVT)
[2024-11-09 13:24] VITALS: BP 107/51; PULSE 72; RESP 16; TEMP 36.5; O2SAT 100
[2024-11-09 20:23] VITALS: BP 121/63; PULSE 68; RESP 18; TEMP 36.8; O2SAT 100
[2024-11-09] MEDS: TAMSULOSIN HCL 0.4 MG CAPSULE PO (20:23)
[2024-11-10 05:01] VITALS: BP 123/64; PULSE 66; RESP 16; TEMP 37.3; O2SAT 97
[2024-11-10] MEDS: oxyCODONE HCL (*CRX) 5 MG TAB IR PO (05:04)
[2024-11-10 06:19] LABS: Basophils Percent Auto 0.4 % (0.2-1.2); Eosinophils Absolute Auto 0.1 K/mm3 (0-0.3); Eosinophils Percent Auto 1.5 % (0-4.4); Hematocrit 30.4 % (42.0-52.0); Hemoglobin 9.9 g/dL (14.0-18.0); Immature Granulocyte Absolute 0.06 K/mm3 (0.00-0.031); Immature Granulocyte Percent A 0.7 % (0-0.5); Lymphocytes Absolute Auto 1.84 K/mm3 (0.9-3.2); Lymphocytes Percent Auto 22.9 % (18.3-44.2); Mean Corpuscular HGB Conc 32.6 g/dl (32-36); Mean Corpuscular Hemoglobin 31.5 pg (26-34); Mean Corpuscular Volume 96.8 fl (80-100); Mean Platelet Volume 9.4 fl (7.4-10.4); Monocytes Percent Auto 12.8 % (2.6-8.5); Neutrophils Percent Auto 61.7 % (45.5-73.1); Platelet Count Result 304 k/mm3 (150-375); Red Blood Count 3.14 M/mm3 (4.6-6.20); Red Cell Distribution Width 12.4 % (11.5-14.5); White Blood Count 8.1 K/mm3 (4.5-10.0)
[2024-11-10 06:47] LABS: Alanine Aminotransferase 31 U/L (6-50); Albumin Level 3.1 g/dL (3.5-5.1); Alkaline Phosphatase 72 U/L (38-126); Anion Gap 1 mmol/L (4-12); Aspartate Amino Transferase 21 U/L (17-59); Bilirubin,Total 0.5 mg/dL (0.2-1.3); Blood Urea Nitrogen 34 mg/dL (9-20); Calcium 9.1 mg/dL (8.4-10.2); Carbon Dioxide 27 mmol/L (22-30); Chloride 106 mmol/L (98-107); Estimated CRCL calculation 57 ml/min; Estimated Glomerular Filt Rate 59; Glucose 101 mg/dL (65-110); Sodium 134 mmol/L (137-145)
[2024-11-10] MEDS: SENNOSIDES 8.6 MG TABLET PO ×2 (08:24→20:49)
[2024-11-10] MEDS: APIXABAN 5 MG TABLET PO ×2 (08:24→20:49)
[2024-11-10] MEDS: BACLOFEN 10 MG TABLET PO ×2 (08:24→18:49)
[2024-11-10] MEDS: GABAPENTIN 400 MG CAPSULE PO ×2 (08:24→18:49)
[2024-11-10] MEDS: CIPROFLOXACIN 250 MG TABLET 750 MG PO ×2 (08:24→20:49)
[2024-11-10] MEDS: DULoxetine HCL 30 MG CAPSULE.DR PO ×2 (08:24→18:49)
[2024-11-10] MEDS: FINASTERIDE 5 MG TABLET PO (08:24)
[2024-11-10] MEDS: SACCHAROMYCES BOULARDII 250 MG CAPSULE PO (08:24)
[2024-11-10] MEDS: DOCUSATE SODIUM 100 MG CAPSULE PO ×2 (08:24→20:49)
[2024-11-10] MEDS: EUCERIN CREAM 454 GM JAR 1 APPLIC TOPICAL (08:25)
[2024-11-10 08:38] VITALS: O2SAT 97
[2024-11-10] MEDS: ACETAMINOPHEN 325 MG TABLET 650 MG PO (11:03)
--- NOTE | 2024-11-10 12:02 | P.PNIM_ITS ---
Progress Note: A&P Assessment and Plan (1) Urinary tract infection: Qualifiers: Indwelling urinary catheter type: indwelling urethral catheter Urinary tract infection type: catheter-associated UTI Code(s): N39.0 - Urinary tract infection, site not specified Status: Acute Assessment and Plan: - Urine culture pending. - Currently on Cipro oral - Previous urine culture grew pansensitive pseudomonas aeruginosa. - Continue current abx treatment. - Follow culture gram negative bacilli, hassan sensitive per lab when called by ID pharmacist. (2) Neurogenic dysfunction of the urinary bladder: Code(s): N31.9 - Neuromuscular dysfunction of bladder, unspecified Status: Acute Assessment and Plan: - Fonseca changed on admission. - Failed previous voiding trials. - Maintain fonseca catheter. (3) Benign prostatic hyperplasia: Qualifiers: Lower urinary tract symptom detail: urinary retention Lower urinary tract symptom presence: symptoms present Qualified Code(s): N40.1 - Benign prostatic hyperplasia with lower urinary tract symptoms; R33.8 - Other retention of urine Code(s): N40.0 - Benign prostatic hyperplasia without lower urinary tract symptoms Status: Acute Assessment and Plan: - Continue fonscea. - Continue f/u with pcp. - Continue finasteride and tamsulosin. (4) Chronic anemia: Code(s): D64.9 - Anemia, unspecified Status: Acute Assessment and Plan: - Hgb appears baseline. - No obvious signs of bleeding. - Continue to monitor closely. (5) Postoperative deep vein thrombosis (DVT): Code(s): T81.89XA - Other complications of procedures, not elsewhere classified, initial encounter; I82.409 - Acute embolism and thrombosis of unspecified deep veins of unspecified lower extremity Status: Acute Assessment and Plan: - Continue apixaban. (6) Sacral wound: Code(s): S31.000A - Unspecified open wound of lower back and pelvis without penetration into retroperitoneum, initial encounter Status: Acute Assessment and Plan: * Wound care consulted * Apply antifungal barrier cream to treat and protect. * Turn q 2. * Waffle air boots to bilateral heels. 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 Subjective Date/time seen: 11/10/24 12:02 Interval history: Patient sitting up in chair. Patient reports pain in back is an 6 , constant, and aching. Patient had just finished working with physical therapy. Patient denies chest pain, palpitations, shortness of breath, headache, dizziness, nausea, or vomiting. Reports that sensation is improving to right leg. Review of Systems Review of Systems: All systems reviewed & are unremarkable except as noted in HPI and below Exam Const: General: no acute distress and uncomfortable Eyes: Sclera: sclerae normal Resp: Effort & Inspection: normal respiratory effort Auscultation: clear to auscultation bilaterally Cardio: Rate: regular rate Rhythm: regular rhythm GI: GI Palp: Yes Soft to palpation Auscultation: normal bowel sounds Urinary Catheter: Urinary Catheter: patent and draining (yellow urine clear) Skin: Other: Warm and dry. There is breakdown on the over the coccyx and a small pressure ulcers noted on the left heel. Glue intact to upper spinal incision with no swelling or redness noted. Legs and feet dry. Neuro: Speech: normal speech Extrem: Other: Sensation decreased to tad. LE. Improving in right leg. Psych: Mental Status: mental status grossly normal Affect: normal affect Objective Data Vital Signs Vital Signs: Vital Signs - 24 hr 11/09/24 13:24 11/09/24 20:00 11/09/24 20:23 Temperature 97.7 F 98.3 F Pulse Rate 72 68 Respiratory Rate 16 18 Blood Pressure 107/51 L 121/63 Pulse Oximetry 100 100 Oxygen Delivery Room Air Fraction of Inspired Oxygen 11/10/24 05:01 11/10/24 08:38 Temperature 99.2 F Pulse Rate 66 Respiratory Rate 16 Blood Pressure 123/64 Pulse Oximetry 97 97 Oxygen Delivery Room Air Fraction of Inspired Oxygen 21 Intake/Output Intake/Output: Intake & Output 11/07/24 11/08/24 11/09/24 11/10/24 23:59 23:59 23:59 23:59 Intake Total 1800 1770 2150 1240 Output Total 2900 3400 2100 1850 Balance -1100 -1630 50 -610 Meds/Results Medications: Active Medications Generic Name Dose Route Start Last Admin Trade Name Freq PRN Reason Stop Dose Admin Acetaminophen 650 mg 11/06/24 14:52 11/10/24 11:03 Acetaminophen 325 Mg Tablet PO 650 mg Q4H PRN Administration Mild Pain (1-3) or Fever Apixaban 5 mg 11/06/24 22:20 11/10/24 08:24 Apixaban 5 Mg Tablet PO 5 mg Q12HR [facility] Administration Baclofen 10 mg 11/07/24 09:00 11/10/24 08:24 Baclofen 10 Mg Tablet PO 10 mg BID [facility] Administration Baclofen 10 mg 11/08/24 02:53 11/08/24 03:04 Baclofen 10 Mg Tablet PO 10 mg DAILY PRN Administration Muscle Spasticity Ciprofloxacin 750 mg 11/08/24 15:00 11/10/24 08:24 Ciprofloxacin 250 Mg Tablet PO 11/13/24 23:59 750 mg Q12HR [facility] Administration Docusate Sodium 100 mg 11/07/24 09:00 11/10/24 08:24 Docusate Sodium 100 Mg Capsule PO 100 mg Q12HR [facility] Administration Duloxetine HCl 30 mg 11/07/24 09:00 11/10/24 08:24 Duloxetine Hcl 30 Mg Capsule.Dr PO 30 mg BID [facility] Administration Finasteride 5 mg 11/07/24 09:00 11/10/24 08:24 Finasteride 5 Mg Tablet PO 5 mg DAILY [facility] Administration Gabapentin 400 mg 11/07/24 09:00 11/10/24 08:24 Gabapentin 400 Mg Capsule PO 400 mg BID [facility] Administration Hydromorphone HCl 0.5 mg 11/06/24 14:52 11/09/24 09:09 Hydromorphone Hcl Inj (*Crx) 1 Mg/Ml Syr IV PUSH 0.5 mg Q4H PRN Administration Pain Rated 7-10 Lidocaine 1 patch 11/07/24 09:00 11/10/24 08:25 Lidocaine 5% Patch TRANSDERM Not Given DAILY [facility] Multi-Ingred Cream/Lotion/Oil/Oint 1 applic 11/08/24 15:30 11/10/24 08:25 Eucerin Cream 454 Gm Jar TOPICAL 1 applic DAILY [facility] Administration Ondansetron HCl 4 mg 11/06/24 14:52 Ondansetron Inj 4 Mg/2 Ml Vial IV PUSH Q4H PRN Nausea Oxycodone HCl 5 mg 11/06/24 15:29 11/10/24 05:04 Oxycodone Hcl (*Crx) 5 Mg Tab Ir PO 5 mg Q8H PRN Administration Pain Rated 4-6 Oxycodone HCl 5 mg 11/06/24 22:19 11/08/24 02:43 Oxycodone Hcl (*Crx) 5 Mg Tab Ir PO 5 mg Q8H PRN Administration Pain 7-10 Polyethylene Glycol 17 gm 11/06/24 22:19 11/09/24 08:53 Polyethylene Glycol 3350 17 Gm Powd.Pack PO 17 gm BID PRN Administration Constipation (First line) Saccharomyces Boulardii 250 mg 11/07/24 09:00 11/10/24 08:24 Saccharomyces Boulardii 250 Mg Capsule PO 250 mg DAILY [facility] Administration Senna 8.6 mg 11/07/24 09:00 11/10/24 08:24 Sennosides 8.6 Mg Tablet PO 8.6 mg Q12HR [facility] Administration Tamsulosin HCl 0.4 mg 11/07/24 21:00 11/09/24 20:23 Tamsulosin Hcl 0.4 Mg Capsule PO 0.4 mg HS [facility] Administration Radiology Results: ITS Impressions Abdomen/Pelvis CT 11/06/24 13:37 IMPRESSION: 1. Wall thickening with surrounding inflammatory stranding consistent with cystitis and with likely bilateral ascending urinary tract infections with enhancing urothelial thickening along the bilateral renal collecting systems are prominent on the left where there is mild associated hydroureteronephrosis without evident obstructing urolithiasis. Correlate with urinalysis. 2. This is unchanged very small left pleural effusion. Labs Labs: Laboratory Results - last 24 hr 11/10/24 05:49 WBC 8.1 RBC 3.14 L Hgb 9.9 L Hct 30.4 L MCV 96.8 MCH 31.5 MCHC 32.6 RDW 12.4 Plt Count 304 MPV 9.4 Immature Gran % (Auto) 0.7 H Neut % (Auto) 61.7 Lymph % (Auto) 22.9 [place] % (Auto) 12.8 H Eos % (Auto) 1.5 Baso % (Auto) 0.4 Lymph # (Auto) 1.84 [place] # (Auto) 1.0 H Eos # (Auto) 0.1 Baso # (Auto) 0.0 Abs Immat Gran (auto) 0.06 H Absolute Neuts (auto) 5.0 Absolute Nucleated RBC 0.000 Nucleated RBC % 0.0 Sodium 134 L Potassium 4.0 Chloride 106 Carbon Dioxide 27 Anion Gap 1 L BUN 34 H D Creatinine 1.20 Estim Creat Clear Calc 57 Estimated GFR 59 Glucose 101 Calcium 9.1 Total Bilirubin 0.5 AST 21 ALT 31 Alkaline Phosphatase 72 Total Protein 6.0 L Albumin 3.1 L Quality VTE Prophylaxis VTE prophylaxis: pharmacologic ordered (on apixaban for fairly recent DVT)
[2024-11-10 14:00] VITALS: BP 113/54; PULSE 69; RESP 18; TEMP 36.4; O2SAT 100
[2024-11-10 20:00] VITALS: PULSE 75; RESP 18; O2SAT 98
[2024-11-10 20:06] VITALS: BP 103/73; PULSE 75; RESP 18; TEMP 36.7; O2SAT 98
[2024-11-10] MEDS: TAMSULOSIN HCL 0.4 MG CAPSULE PO (20:49)
[2024-11-11] MEDS: ACETAMINOPHEN 325 MG TABLET 650 MG PO ×2 (02:24→13:02)
[2024-11-11 04:00] VITALS: BP 115/57; PULSE 89; RESP 18; TEMP 36.8; O2SAT 93
[2024-11-11 05:23] LABS: Basophils Percent Auto 0.5 % (0.2-1.2); Eosinophils Absolute Auto 0.1 K/mm3 (0-0.3); Eosinophils Percent Auto 1.6 % (0-4.4); Hematocrit 29.1 % (42.0-52.0); Hemoglobin 9.5 g/dL (14.0-18.0); Immature Granulocyte Absolute 0.06 K/mm3 (0.00-0.031); Immature Granulocyte Percent A 0.7 % (0-0.5); Lymphocytes Absolute Auto 1.67 K/mm3 (0.9-3.2); Lymphocytes Percent Auto 19.4 % (18.3-44.2); Mean Corpuscular HGB Conc 32.6 g/dl (32-36); Mean Corpuscular Hemoglobin 31.4 pg (26-34); Monocytes Percent Auto 12.1 % (2.6-8.5); Neutrophils Absolute Auto 5.6 K/mm3 (1.3-6.7); Neutrophils Percent Auto 65.7 % (45.5-73.1); Platelet Count Result 273 k/mm3 (150-375); Red Blood Count 3.03 M/mm3 (4.6-6.20); Red Cell Distribution Width 12.2 % (11.5-14.5); White Blood Count 8.6 K/mm3 (4.5-10.0)
[2024-11-11 05:32] LABS: Alanine Aminotransferase 26 U/L (6-50); Albumin Level 2.9 g/dL (3.5-5.1); Alkaline Phosphatase 69 U/L (38-126); Anion Gap 2 mmol/L (4-12); Aspartate Amino Transferase 25 U/L (17-59); Bilirubin,Total 0.3 mg/dL (0.2-1.3); Blood Urea Nitrogen 34 mg/dL (9-20); Calcium 9.1 mg/dL (8.4-10.2); Carbon Dioxide 28 mmol/L (22-30); Chloride 107 mmol/L (98-107); Estimated CRCL calculation 59 ml/min; Estimated Glomerular Filt Rate 59; Glucose 110 mg/dL (65-110); Sodium 137 mmol/L (137-145)
[2024-11-11] MEDS: DULoxetine HCL 30 MG CAPSULE.DR PO (08:34)
[2024-11-11] MEDS: SACCHAROMYCES BOULARDII 250 MG CAPSULE PO (08:34)
[2024-11-11] MEDS: DOCUSATE SODIUM 100 MG CAPSULE PO (08:34)
[2024-11-11] MEDS: FINASTERIDE 5 MG TABLET PO (08:34)
[2024-11-11] MEDS: GABAPENTIN 400 MG CAPSULE PO (08:34)
[2024-11-11] MEDS: APIXABAN 5 MG TABLET PO (08:34)
[2024-11-11] MEDS: BACLOFEN 10 MG TABLET PO (08:34)
[2024-11-11] MEDS: EUCERIN CREAM 454 GM JAR 1 APPLIC TOPICAL (08:35)
[2024-11-11] MEDS: SENNOSIDES 8.6 MG TABLET PO (08:37)
[2024-11-11] MEDS: polyethylene glycoL 3350 17 GM POWD.PACK PO (08:50)
[2024-11-11] MEDS: CIPROFLOXACIN 250 MG TABLET 750 MG PO (10:40)
[2024-11-11] MEDS: LIDOCAINE 5% PATCH 1 PATCH TRANSDERM (13:02)
--- NOTE | 2024-11-11 13:25 | PM.DS ---
DS: Admitting Diagnosis Discharge Date 11/11/24 Admitting Diagnosis UTI Neurogenic dysfunction of the urinary bladder BPH Chronic anemia DS: Discharge Diagnosis Discharge Diagnosis (1) Urinary tract infection: Qualifiers: Indwelling urinary catheter type: indwelling urethral catheter Urinary tract infection type: catheter-associated UTI Code(s): N39.0 - Urinary tract infection, site not specified Status: Acute (2) Neurogenic dysfunction of the urinary bladder: Code(s): N31.9 - Neuromuscular dysfunction of bladder, unspecified Status: Acute (3) Benign prostatic hyperplasia: Qualifiers: Lower urinary tract symptom detail: urinary retention Lower urinary tract symptom presence: symptoms present Qualified Code(s): N40.1 - Benign prostatic hyperplasia with lower urinary tract symptoms; R33.8 - Other retention of urine Code(s): N40.0 - Benign prostatic hyperplasia without lower urinary tract symptoms Status: Acute (4) Chronic anemia: Code(s): D64.9 - Anemia, unspecified Status: Acute (5) Postoperative deep vein thrombosis (DVT): Code(s): T81.89XA - Other complications of procedures, not elsewhere classified, initial encounter; I82.409 - Acute embolism and thrombosis of unspecified deep veins of unspecified lower extremity Status: Acute (6) Sacral wound: Code(s): S31.000A - Unspecified open wound of lower back and pelvis without penetration into retroperitoneum, initial encounter Status: Acute (7) Paraplegia, incomplete: Code(s): 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 Patient has a chronic Fonseca catheter and is an incomplete paraplegic. He was discharged from [facility] on 11/05/2024 and was going back to home with home health. The home health nurse came out and noted the color of his urine as red tinge and sent him here for evaluation. Workup in the hospital included a CT of the abdomen and pelvis which showed findings consistent with cystitis and likely bilateral ascending urinary tract infection and mild hydroureteronephrosis without evidence of obstructing urolithiasis. Urology was consulted in there was no intervention needed at this time. He will follow-up with their group on December 06. Urine culture growing Pseudomonas aeruginosa on final read his antibiotic was changed to ciprofloxacin. Patient will need to finish his course of antibiotics and follow-up with urology as indicated above. Stable for discharge at this time. Final diagnosis: Acute UTI Status at Discharge Cognitive/behavioral status at discharge: Alert oriented x4 Functional status at discharge: wheelchair bound Overall status at discharge: patient is progressing back to baseline Time Spent with Patient Time attestation: Total time spent providing and/or coordinating discharge services: Time spent: Greater than 30 minutes Exam Narrative: General: In no acute distress, well nourished Head: atraumatic, no encephalopathy Eyes: PERRLA, sclera clear ENT: moist mucous membranes, nasal passages clear Neck: supple, no JVD, no adenopathy, trachea midline Cardiac: Normal S1 and S2. No murmur, gallops or friction rubs, peripheral pulses intact. Respiratory: Lungs clear to auscultation, no adventitious lung sounds, currently on room air Gastrointestinal: soft, non-distended, non-tender, normoactive bowel sounds. : fonseca catheter in place draining clear yellow urine Extremities: paraplegia BLE Skin: clean, dry, intact. No wounds or lesions. Neuro: Alert and oriented x4, cranial nerves intact, no neuro deficits. Psych: normal mood, normal affect, interactive DS: Data Data Completed and Pending Completed studies during hospitalization: Abdomen/pelvis CT Pending studies at discharge: None Labs on day of discharge: Labs from last 24 hours 11/11/24 05:09 WBC 8.6 RBC 3.03 L Hgb 9.5 L Hct 29.1 L MCV 96.0 MCH 31.4 MCHC 32.6 RDW 12.2 Plt Count 273 MPV 9.0 Immature Gran % (Auto) 0.7 H Neut % (Auto) 65.7 Lymph % (Auto) 19.4 Morton % (Auto) 12.1 H Eos % (Auto) 1.6 Baso % (Auto) 0.5 Lymph # (Auto) 1.67 Morton # (Auto) 1.0 H Eos # (Auto) 0.1 Baso # (Auto) 0.0 Abs Immat Gran (auto) 0.06 H Absolute Neuts (auto) 5.6 Absolute Nucleated RBC 0.000 Nucleated RBC % 0.0 Sodium 137 Potassium 4.0 Chloride 107 Carbon Dioxide 28 Anion Gap 2 L BUN 34 H Creatinine 1.20 Estim Creat Clear Calc 59 Estimated GFR 59 Glucose 110 Calcium 9.1 Total Bilirubin 0.3 AST 25 ALT 26 Alkaline Phosphatase 69 Total Protein 5.0 L Albumin 2.9 L Procedures/Treatments: None Discharge Plan Discharge Attending physician on discharge: Gilmar Hammond Consulting providers: Alcides Huang; Svetlana Whyte; Herve Santamaria; Maria Isabel Carrera; Kaur Powell; Feliciano Chicas Discharging Clinician: Aishwarya Warren Anticipated Discharge Date/Time: 11/11/24 13:17 Patient Disposition: Home Health Service Activity: as tolerated Diet: as tolerated Discharge Instructions: Per Care Coordination. Patient to have [facility] for RN/PT/OT eval and treat. #[phone]. RN please fax discharge instructions to Initial your antibiotics as directed even if your feeling better Follow-up with your primary care doctor in 1 week Patient Instructions: Antibiotic Form, Ciprofloxacin (By mouth), Urinary Tract Infection in Men (ED) Patient Language: Armenian Stand Alone Forms: General Discharge Information Follow-up/Referrals: Marcelino,MD Sj [Primary Care Provider] - 1 Week Discharge Medications: New ciprofloxacin HCl 250 mg Tablet 750 mg PO Q12HR Qty: 16 0RF Continued acetaminophen 500 mg 2 tablet BYMOUTH Q6H PRN (Reason: Pain) Rx Instructions: Take 2 capsules (1000 mg total) by mouth every 6 hours as needed for pain. docusate sodium 100 mg Capsule 100 mg PO BID Florastor 250 mg capsule 1 cap PO DAILY sennosides [senna] 8.6 mg Tablet 8.6 mg PO BID polyethylene glycol 3350 [Miralax] 17 gram Powder In Packet 17 g PO BID PRN (Reason: Constipation (First line)) lidocaine [Lidocaine Pain Relief] 4 % Adhesive Patch,Medicated 1 patch transdermal DAILY Qty: 7 0RF gabapentin 400 mg Capsule 400 mg PO BID Qty: 60 0RF tamsulosin 0.4 mg capsule 0.4 mg PO HS Qty: 30 0RF baclofen 10 mg tablet 10 mg PO BID Qty: 30 0RF Patient Comments: numbness tingling lt leg prn finasteride 5 mg tablet 5 mg PO DAILY Qty: 30 0RF oxycodone 5 mg Tablet 5 mg PO Q8H PRN (Reason: Pain) Qty: 21 0RF apixaban 5 mg Tablet 5 mg PO BID Qty: 60 0RF duloxetine 40 mg capsule,delayed release(DR/EC) 30 mg PO BID Qty: 60 0RF Date of admission: 11/06/24 14:53 Primary Care Provider: Marcelino,[facility] Admitting Provider: Alberto Davalos Attending physician on admission: Aishwarya Warren Condition: Improved Quality VTE Prophylaxis VTE prophylaxis: pharmacologic ordered (on apixaban for fairly recent DVT)
[2024-11-11 16:04] VITALS: BP 125/51; PULSE 67; RESP 18; TEMP 36.3; O2SAT 100
--- NOTE | 2024-11-11 17:00 | PC.NURSE ---
wound photos taken of bilateral heels and sacrum. unable to download from camera to chart
--- OUTSIDE RECORDS SUMMARY | 2024-11-14 16:19 | XMS_ITS | Encounter Summary ---
Author Organization [facility] Address [address] [place] [address]. [place] [address] [place] [address] Care Team Providers Care Rejector Name Role Phone Sj Benson MD Primary Care Provider [phone] Reason for Referral * (Routine) - Canceled Specialty Diagnoses / Procedures Referred By Contac t Referred To Contact Procedures PT eval and treat Courtney Blackmon MD [address] [facility] [address] [place] [id number] Phone: tel: fax: Referral ID Status Reason Start Date Expiration Date V isits Requested Visits Authorized [id number] Canceled 08/25/2021 09/25/2022 1 1 Reason for Visit * Auth/Cert Specialty Diagnoses / Procedures Referred By Contac t Referred To Contact Diagnoses M48.061, Z01.818 Procedures LUMBAR LAMINECTOMY L4-5 Referral ID Status Reason Start Date Expiration Date Visits Re quested Visits Authorized [id number] 1 1 Encounter Details Date Type Department Care Team (Latest Contact Info) Description 08/25/2021 6:13 AM CDT - 08/25/2021 3:15 PM CDT Hospital Encounter [facility] [place] [address] Corutney Blackmon MD [address] [facility] [address] [place] [address] [id number] Discharge Disposition: Home or Self Care (Routine Discharge) Social History Tobacco Use Types Packs/Day Years Used Date Smoking Tobacco: Never Smokeless Tobacco: Never Alcohol Use Standard Drinks/Week Comments Not Currently 0 (1 standard drink = 0.6 oz pur e alcohol) less than 10 in my lifetime Sex and Gender Information Value Date Recorded Sex Assigned at Not on file Legal Sex Male 12:01 PM CDT Gender Identity Not on file Sexual Orientation Not on file COVID-19 Exposure Response Date Recorded In the last month, have you been in contact with someone who was confirmed or suspected to have Coronavirus / COVID-19? No / Unsure 08/25/2021 6:13 AM CDT documented as of this encounter Last Filed Vital Signs Vital Sign Reading Time Taken Comments Blood Pressure 144/93 08/25/2021 3:00 PM CDT Pulse 69 08/25/2021 3:00 PM CDT Temperature 36.4 ??C (97.6 ??F) 08/25/2021 3:00 PM CD T Respiratory Rate 18 08/25/2021 3:00 PM CDT Oxygen Saturation 96% 08/25/2021 3:00 PM CDT Inhaled Oxygen Concentration - - Weight 99.5 kg (219 lb 5.7 oz) 08/25/2021 7:45 A M CDT Height 182.9 cm (6') 08/25/2021 7:45 AM CDT Body Mass Index 29.75 08/25/2021 7:45 AM CDT documented in this encounter Discharge Instructions * Discharge Instructions* Niurka Thurman RN - 08/25/2021 2:11 PM CDT No bending, lifting, twisting for 6 weeks. No lifting greater than 8-10lbs for 6 weeks. No strenuous activity for 6 weeks. May remove dressing post op day 2. May shower post op day 3. No submerging in water for 6 weeks. Trip will be removed in office. Follow Dr. Valero post op instructions sheets Because you had anesthesia, we suggest these things: -Advance diet as tolerated, avoid greasy, fried or spicy foods for today -Take medication with food -Take an over the counter stool softener if needed for constipation while taking pain medication -Have a responsible adult stay with you the rest of today and overnight -No alcohol, driving, making major decision or operating machinery for 24 hours or while taking pain medication If you have chest pain, shortness of breath, excessive bleeding or drainage, if you cannot hold down anything to eat or drink, or if you cannot urinate, please call 911 or go to the nearest emergencyroom. If you have fever, pain not controlled by your medication, signs of infection such as redness or discharge or swelling at the site, or any other questions or concerns, please call your surgeon. * Attachments The following attachments cannot be sent through Care Everywhere. * Laminectomy Discharge Instructions (Bhutanese) * General Anesthesia Discharge Instructions (Bhutanese) * Hydrocodone and Acetaminophen, ADULT (Bhutanese) * Docusate, ADULT (Bhutanese) documented in this encounter Medications at Time of Discharge baclofen 10 MG tablet Take 1 tablet by mouth every 8 (eight) hours as needed. bethanechol 25 MG tablet Take 25 mg by mouth 2 (two) times a day. DULoxetine HCl 40 MG CAPSULE ENTERIC COATED PARTICLES Take 40 mg by mouth daily. finasteride 5 MG tablet Take 5 mg by mouth daily. omeprazole 20 MG capsule Take 20 mg by mouth daily. tamsulosin 0.4 MG Cap Take 0.4 mg by mouth daily. docusate sodium 100 MG capsuleIndication s:Stenosis, spinal, lumbar Take 1 capsule (100 mg total) by mouth 2 (two) times daily for 10 days. 10 capsule 08/25/2021 09/04/2021 HYDROcodone-aceta minophen 5-325 MG tabletIndications :Acute Pain < 7 Day Supply Take 1 tablet by mouth every 6 (six) hours as needed for Pain. Indications: Acute Pain < 7 Day Supply 28 tablet 08/25/2021 09/01/2021 documented as of this encounter Nursing Notes * Janeth Muhammad RN - 08/25/2021 9:27 AM CDT Patient's updated of surgery start via telephone at 0927 and of surgery progress at 1022. * Cassidy Atkins RN - 08/25/2021 7:51 AM CDT Hibiclens showers at home x 2, nose to toes protocol completed. CHG wipes used on arrival to OPS, etyhl alcohol swabs x 2 placed in bilateral nares per RN. Pt tolerated well. Pt COVID vaccinated. No signs or symptoms of COVID. documented in this encounter OR Notes * Op Note - Courtney Blackmon MD - 08/25/2021 10:39 AM CDTSummary: Lumbar decomrpession L4-5 OPERATIVE NOTE - August 25, 2021 ?? Preoperative diagnosis: ??Spinal stenosis of lumbar region with neurogenic claudication Postoperative diagnosis: ??Same ?? Procedures performed:? 1.?Total bilateral laminectomy, medial facetectomy and foraminotomies, L4-5 2.?Use and interpretation of intraoperative fluoroscopy ?? Surgeon: Courtney Blackmon MD ?? Anesthesia: General endotracheal ?? Drains: Medium Hemovac ?? Specimens: None ?? Estimated blood loss: 30 cc ?? IV Fluids: 1000 cc ?? Complications: None apparent ?? Indications: Ryan Delgado is a very pleasant 70 year old male??who presents with claudicatory low back and lower extremity pain in the setting of lumbar stenosis??from L4- L5.?He has exhausted non operative measures and is inclined to surgery. ??Please see my preoperative H&P for full details regarding his??history and preoperative course. ??Plan is for lumbar decompression L4-5 ?? Description of the procedure: The patient was brought to the operating room where general anesthesia was induced without difficulty.??Appropriate monitoring and access was obtained.?The??patient was turned prone on Laurent table??with a Rob frame??and all pressure points were carefully padded. ??Antibiotics for preoperative surgical prophylaxis was given. We used fluoroscopy to francy the appropriate skin incision level. ??The area was cleaned, prepped and draped in the usual sterile fashion. ??A final timeout was performed to confirm patient identity and procedure to all team members. ? Local anesthesia was injected at the incision site using 0.25% Marcaine. ??Skin was opened with a??#10 blade. ??The incision was then carried out deeply using Bovie. ??Hemostasis was achieved during the exposure. ??Self retaining retractors were placed to facilitate the exposure. ??I exposed the spinous process and laminae of??L4. ??A curette was placed underneath the??L4 lamina and??we did another x-ray to confirm the level. ??We then carried exposure and subperiosteal fashion bilaterally. ?? The laminae were vertically oriented which contributed to a trefoil pattern of stenosis and overgrowth of the spinous processes made dissection more challenging. ?? Self retaining retractors were advanced.??The laminae L4 were exposed using bovie electrocautery bilaterally to the level of the facet complexes. ??Hemostasis was achieved. ?The spinous process ofL4 was removed using a Christina and then a rongeur.?Wax was placed at the bony edges. ? Attention to the L4-5 level. ? I performed a??bilateral L4??laminectomy using combination of Kerrosens and drilling using a matchstick tip. ?Hemostasis of the epidural space was ensured using bipolar cautery and FloSeal.?Theoverlying ligament was removed using kerossen punches. In the lateral recesses bilaterally bony andligamentous foraminotomies were performed by drilling the medial facet and then removing the overlying ligament and remaining bone. ??Upon completion of the bony and ligamentous decompression and ata retractor was passed and the exiting L4 and L5 nerve roots were free on the right and the left. ?? The wound was copiously irrigated. ??The central canal and neural foramen at L4 and L5 were patent.??Hemostasis was achieved.?A hemovac drain was tunnelled and secured.?The self retaining retractors were removed. ??Muscle was approximated with a 0 Vicryl interrupted sutures. ??Fascia was closed with 0 Vicryl interrupted sutures and subcutaneous tissue was closed with 2-0 and then 3-0??Vicryl. ??Skin was closed with surgical trip. ??All counts were correct. ??The patient was flipped and extubated.??He??was brought in to the recovery room in stable condition. ?? I was present for the entirety of the procedure.?There were no complications. * OR PreOp - YADIRA Collado - 07/31/2021 10:06 AM CDT Chart reviewed. Per phone interview, patient denies any SOB/CP with 2 FOS or recent changes in activity tolerance in past 6 months. Per phone interview, patient denies having a remediation bioanalytics consultant or previous cardiac testing with exception of recent preop EKG. Testing in Cardiology and copied. Clearances requested by surgeon per order form, please request copies once received. Addendum 08/06- Patient rescheduled 2/2 positive UA results. Patient had also been referred to cardiology per PCP for surgical clearance 2/2 abnormal EKG. Patient seen remediation bioanalytics consultant Dr. Saez and obtained clearance, now in Letters. Addendum 08/20- Patient's surgery rescheduled. No changes in medical hx noted. Patient does not need COVID testing prior to surgery, he/she has completed their COVID vaccine series more than 14 days prior to surgery date. Patient notified by RN to provide proof of vaccination prior to surgery. Cardiac clearance per Dr. Saez. Acceptable risk. EKG 08/04/21 SINUS RHYTHM COMPARED TO PREVIOUS TRACING No significant change Rate 69 EKG 07/29/21 SINUS BRADYCARDIA MODERATE INTRAVENTRICULAR CONDUCTION DELAY NONSPECIFIC ST & T-WAVE ABNORMALITY No previous ECG available for comparison Rate 59 * OR PreOp - Jessica Rivas RN - 07/31/2021 9:06 AM CDT PATIENT CAN CLIMB 2 FLIGHTS OF STAIRS WITHOUT CP OR EXTREME SOB. yes ACTIVITY TOLERANCE IS THE SAME 6 MONTHS AGO. Yes (when I go out to trim the yard I have to take breaks due to the back pain) DENIES CARDIAC TESTING. Yes, other than an EKG at [facility] in prep for surgery 07/29/21 AVERAGE BLOOD PRESSURE? Fluctuates, has been told to keep an eye on it. Covid-19 vaccinated in [place]. Will bring card day of surgery. Pt believes surgery was meant to be scheduled for 08/06/21. Left message at Dr Blackmon's office for confirmation. Orders and scheduling form both indicate 08/05/21. Requested copy of Medical and urological Clearances as requested by surgeon. Received incoming fax from Dr Benson office stating that pt had indicated he did his preop with you. They have requested those records. Sent over EKG results/tracing and Lab Results. Called office to let them know to watch for those. They indicate that pt has not been seen in office for a while, and unless they see him in person, they would not provide surgery clearance letter. Office indicates that they have an opening this afternoon and could get pt in today if he calls to arrange. ContactedDr Blackmon's office to include them, as they had been the initiator of surgery clearance. They indicate that they had not successfully reached the office. Relayed information about appt. Eliza indicate s that she will have pt call and be seen at Dr Benson's office today, if possible. Incoming call from Dr Benson. Pt seen today, Dr Benson indicates that, due to changes seen on pt recent EKG, he would like pt to be evaluated by cardiology prior to surgery, and would like Cardiac Clearance. He indicates that he will send his office note when complete, today. Notified Eliza at Dr Blackmon's office. Contacted [facility], and left voicemail message for Barbara, relaying this information. Will follow up tomorrow. Left message for Barbara at [facility] this morning, to follow up. Received incoming call from Barbara at [facility]. She indicates that pt will be seen by Dr Saez Wednesday at 2pm. Left Message for Eliza at Dr Blackmon's office to relay these developments. Pt rescheduled for surgery due to unfavorable UA results. Pt indicates that he was re-tested today in [place] and Eliza is going to update him on those results. He also indicates having a repeatEKG which was normal. Pt denies any changes to his health history or medication list at this time. Pt surgery scheduled now for 08/25/21. Reviewed instructions and medication list and checked for changes. Pt indicates he had a urine culture completed Wednesday. Reached out to Dr Moreira office and spoke with Cynthia. She will fax results today. documented in this encounter Plan of Treatment Not on file documented as of this encounter Procedures Procedure Name Priority Date/Time Associated Diagnosis Comments SURG XR LUMB SPINE 2V Routine 08/25/2021 3:28 PM CDT LAMINECTOMY DECOMPRESSION 08/25/2021 8:49 AM CDT M48.061, Z01.818 Case Notes SCHED BY FAX ON 07/29/21 SMI PHONE ASSESS Special Needs PRONERNFA documented in this encounter Results * SURG XR LUMB SPINE 2V (08/25/2021 3:28 PM CDT) Anatomical Region Laterality Modality Spine Radiographic Sadie ging 08/25/2021 2:30 PM CDT Narrative 08/25/2021 2:31 PM CDT Exam: Surgery x-ray lumbar spine Date: 08/25/2021 Indication: Radiation Dose and/or Fluoroscopy Report Fluoroscopy time: 14 seconds Total number of fluoroscopic images: 5 Referred By: ?? Interpreted By: Dejan Chisholm MD, 08/25/2021 2:30 PM Procedure Note Dejan Chisholm MD - 08/25/2021 Exam: Surgery x-ray lumbar spine Date: 08/25/2021 Indication: Radiation Dose and/or Fluoroscopy Report Fluoroscopy time: 14 seconds Total number of fluoroscopic images: 5 Referred By: Interpreted By: Dejan Chisholm MD, 08/25/2021 2:30 PM Courtney Blackmon MD IMAGES ONLY Final Result documented in this encounter Visit Diagnoses Diagnosis Stenosis, spinal, lumbar Spinal stenosis, lumbar region, without neurogenic claudication Preop examination Preoperative examination, unspecified documented in this encounter Administered Medications Inactive Administered Medications - up to 3 most recent administrations Medication Order MAR Action Action Date Dose Rate Site acetaminophen (TYLENOL) tablet 1,000 mg 1,000 mg, Oral, Once, 1 dose, On Wed08/25/21 at 0645, Maximum dose of acetaminophen is 4000 mg from all sources in 24 hours., Pre-Op Given 08/25/2021 7:25 AM CDT 1,000 mg cyclobenzaprine (FLEXERIL) tablet 10 mg 10 mg, Oral, 3 times daily PRN, Muscle Spasms, Starting on Wed08/25/21 at 1128, Until Wed08/25/21 at 1725, If diazepam (VALIUM) also ordered, alternate doses., Post-Op Given 08/25/2021 11:48 AM CDT 10 mg DULoxetine (CYMBALTA) capsule 40 mg 40 mg, Oral, Daily, First dose (after last reorder) on Wed08/25/21 at 1500, Until Discontinued gabapentin (NEURONTIN) capsule 300 mg 300 mg, Oral, Once, 1 dose, On Wed08/25/21 at 0645, Pre-Op Given 08/25/2021 7:25 AM CDT 300 mg ketorolac (TORADOL) injection 15 mg 15 mg, Intravenous, Once, 1 dose, On Wed08/25/21 at 1400, For IV administration, give over 15 seconds. Given 08/25/2021 1:47 PM CDT 15 mg lactated ringers infusion at 10 mL/hr, Intravenous, Continuous, Starting on Wed08/25/21 at 0645, Until Wed08/25/21 at 1725, Infuse at TKO rate, Pre-Op New Bag 08/25/2021 10:21 AM CDT New Bag 08/25/2021 8:43 AM CDT morphine injection 1 mg 1 mg, Intravenous, Every 5 min PRN, Severe pain (Scale 8 - 10), 5 doses, Starting on Wed08/25/21 at 1050, Until Wed08/25/21 at 1214, Maximum cumulative dose 5 mg. Do not administer if patient is overly sedated, SpO2 less than 90%, or Respiratory Rate less than 12. If more than one IV analgesic is ordered per pain level, use in this order: fentaNYL, morphine, HYDROmorphone. If desired pain control is not reached, move to next ordered medication at next dosing interval., PACU Given During Downtime 08/25/2021 11:26 AM CDT 1 mg Given 08/25/2021 11:16 AM CDT 1 mg ondansetron (ZOFRAN-ODT) disintegrating tablet 8 mg 8 mg, Oral, Once, 1 dose, On Wed08/25/21 at 0645, On admission, Pre-Op Given 08/25/2021 7:25 AM CDT 8 mg oxyCODONE immediate release (ROXICODONE) tablet 5 mg 5 mg, Oral, Once as needed, Other, Mild pain (Scale 1 - 3), 1 dose, Starting on Wed08/25/21 at 1050, Until Wed08/25/21 at 1127, Do not administer if patient is overly sedated, SpO2 LESS than 90%, or Respiratory Rate LESS than 12., PACU Given During Downtime 08/25/2021 11:27 AM CDT 5 mg documented in this encounter Active and Recently Administered Medications Times are shown in CDT. Scheduled Medication Order 08/23/2021 08/24/2021 08/25/2021 acetaminophen (TYLENOL) tablet 1,000 mg (COMPLETED) 1,000 mg, Oral, Once, 1 dose, On Wed08/25/21 at 0645, Maximum dose of acetaminophen is 4000 mg from all sources in 24 hours., Pre-Op 0725 (Given - Provid er: Cassidy Atkins RN - Comment: Pre op) bethanechol (URECHOLINE) tablet 25 mg 25 mg, Oral, 3 times daily, First dose on Wed08/25/21 at 0915, Until Discontinued, To avoid nausea and vomiting, administer 1 hour before meals or 2 hours after meals. 0853 (MAR Hold - Pro vider: User Epic - Reason: Unreviewed Transfer Orders)0915 (Automatically Held - Provider: User Epic)1100 (MAR Unhold - Provider: User Epic)1600 (Canceled Entry - Provider: Automatic Discharge Provider - Comment: Automatically canceled at discontinue of medication order) ceFAZolin (ANCEF) 2 g in NS 100 mL IVPB (COMPLETED) 2 g, Intravenous, at 200 mL/hr, scallop raker to O.R., 1 dose, First dose on Wed08/25/21 at 0645, Pre-Op 0903 (Given - Provid er: Marilee Mcadams CRNA)0933 (Infusion Stop Time - Provider: Mrailee Mcadams CRNA) DULoxetine (CYMBALTA) capsule 40 mg 40 mg, Oral, Daily, First dose (after last reorder) on Wed08/25/21 at 1500, Until Discontinued 1500 (Canceled Entry - Provider: Automatic Discharge Provider - Comment: Automatically canceled at discontinue of medication order) finasteride (PROSCAR) tablet 5 mg 5 mg, Oral, Daily, First dose on Wed08/25/21 at 0915, Until Discontinued, HAZARDOUS MEDICATION 0853 (MAR Hold - Pro vider: User Epic - Reason: Unreviewed Transfer Orders)0915 (Automatically Held - Provider: User Epic)1100 (MAR Unhold - Provider: User Epic) gabapentin (NEURONTIN) capsule 300 mg (COMPLETED) 300 mg, Oral, Once, 1 dose, On Wed08/25/21 at 0645, Pre-Op 0725 (Given - Provid er: Cassidy Atkins RN - Comment: Pre op) ketorolac (TORADOL) injection 15 mg (COMPLETED) 15 mg, Intravenous, Once, 1 dose, On Wed08/25/21 at 1400, For IV administration, give over 15 seconds. 1347 (Given - Provid er: Niurka Thurman RN) ondansetron (ZOFRAN-ODT) disintegrating tablet 8 mg (COMPLETED) 8 mg, Oral, Once, 1 dose, On Wed08/25/21 at 0645, On admission, Pre-Op 0725 (Given - Provid er: Cassidy Atkins RN) pantoprazole EC (PROTONIX) tablet 20 mg 20 mg, Oral, Daily, First dose on Wed08/25/21 at 0915, Until Discontinued, Do not break, chew, or crush. 0853 (MAR Hold - Pro vider: User Epic - Reason: Unreviewed Transfer Orders)0915 (Automatically Held - Provider: User Epic)1100 (MAR Unhold - Provider: User Epic) tamsulosin (FLOMAX) capsule 0.4 mg 0.4 mg, Oral, Daily, First dose on Wed08/25/21 at 0915, Until Discontinued 0853 (MAR Hold - Pro vider: User Epic - Reason: Unreviewed Transfer Orders)0915 (Automatically Held - Provider: User Epic)1100 (MAR Unhold - Provider: User Epic) Continuous Medication Order 08/23/2021 08/24/2021 08/25/2021 lactated ringers infusion at 10 mL/hr, Intravenous, Continuous, Starting on Wed08/25/21 at 0645, Until Wed08/25/21 at 1725, Infuse at TKO rate, Pre-Op 0843 (New Bag - Prov ider: Marilee Mcadams CRNA)1021 (New Bag - Provider: Marilee Mcadams CRNA) PRN Medication Order 08/23/2021 08/24/2021 08/25/2021 baclofen (LIORESAL) tablet 10 mg 10 mg, Oral, Every 8 hours PRN, Muscle Spasms, Starting on Wed08/25/21 at 0849, Until Wed08/25/21 at 1725 0853 (MAR Hold - Pro vider: User Epic - Reason: Unreviewed Transfer Orders)1100 (MAR Unhold - Provider: User Epic) BUpivacaine-EPINEPHrine PF 0.5% -[id number] injection (CANCELED) As needed, Starting on Wed08/25/21 at 1034, Until Wed08/25/21 at 1057, Intra-Op 1034 (Given - Provid er: Courtney Blackmon MD) ceFAZolin (ANCEF) in NS 1000 mL irrigation solution (CANCELED) As needed, Starting on Wed08/25/21 at 0931, Until Wed08/25/21 at 1057, Intra-Op 0931 (Given - Provid er: Courtney Blackmon MD) cyclobenzaprine (FLEXERIL) tablet 10 mg 10 mg, Oral, 3 times daily PRN, Muscle Spasms, Starting on Wed08/25/21 at 1128, Until Wed08/25/21 at 1725, If diazepam (VALIUM) also ordered, alternate doses., Post-Op 1148 (Given - Provid er: Paz Lechuga RN) morphine injection 1 mg (CANCELED) 1 mg, Intravenous, Every 5 min PRN, Severe pain (Scale 8 - 10), 5 doses, Starting on Wed08/25/21 at 1050, Until Wed08/25/21 at 1214, Maximum cumulative dose 5 mg. Do not administer if patient is overly sedated, SpO2 less than 90%, or Respiratory Rate less than 12. If more than one IV analgesic is ordered per pain level, use in this order: fentaNYL, morphine, HYDROmorphone. If desired pain control is not reached, move to next ordered medication at next dosing interval., PACU 1116 (Given - Provid er: Paz Lechuga RN)1126 (Given During Downtime - Provider: Paz Lechuga RN) NON FORMULARY (CANCELED) As needed, Starting on Wed08/25/21 at 1017, Until Wed08/25/21 at 1057, Intra-Op 1017 (Given - Provid er: Courtney Blackmon MD - Comment: Floseal) oxyCODONE immediate release (ROXICODONE) tablet 5 mg (COMPLETED) 5 mg, Oral, Once as needed, Other, Mild pain (Scale 1 - 3), 1 dose, Starting on Wed08/25/21 at 1050, Until Wed08/25/21 at 1127, Do not administer if patient is overly sedated, SpO2 LESS than 90%, or Respiratory Rate LESS than 12., PACU 1127 (Given During D owntime - Provider: Paz Lechuga, MARK) vancomycin (VANCOCIN) injection (CANCELED) As needed, Starting on Wed08/25/21 at 1031, Until Wed08/25/21 at 1057, Intra-Op 1031 (Given - Provid er: Courtney Blackmon MD - Comment: Sprinkled in operative wound) documented in this encounter Care Teams Rejector Relationship Specialty Start Date End Date Sj Benson MD PCP - General FAMILY PRACTICE 07/29/21 documented as of this encounter
--- OUTSIDE RECORDS SUMMARY | 2024-11-14 16:19 | XMS_ITS | Encounter Summary ---
Author Organization [facility] Address [address] [place] [address] Care Team Providers Care Prop Sawyer Name Role Phone Marcelino Sj Mario Primary Care Provider Unavail le Encounter Details Date Type Department Care Team (Late st Contact Info) Description 09/13/2018 Lab Requisition [facility] Care DermPath Lab [address] [facility], [place] [id number] Brittany Peña MD [address] [facility] [address] [place] [address] Social History Tobacco Use Types Packs/Day Years Used Date Smoking Tobacco: Never Assessed Sex and Gender Information Value Date Recorded Sex Assigned at Not on file Gender Identity Not on file Sexual Orientation Not on file documented as of this encounter Plan of Treatment Not on file documented as of this encounter Procedures Procedure Name Priority Date/Time Associated Diagnosis Comments DERMATOPATH TECHNICAL REPORT Routine 09/09/2018 12:00 AM CDT documented in this encounter Results * DERMATOPATH TECHNICAL REPORT (09/09/2018 12:00 AM CDT) Case Report Dermatopathology Report ? Case: [id number] ? Authorizing Provider: ??Brittany Peña MD ?Collected: ? 09/09/2018 12:00 AM ? Pathologist: ? Tiffany Astorga MD ? Received: ?09/13/2018 06:58 AM ? Specimens: ?? A) - Skin, left neck ? B) - Skin, right knee ? 4:09 PM [facility] DERMAT[facility] Clinical History A: ISK vs nevus vs R/O BCC. Derwood brown papule. B: VV vs ISK vs SCC/PSO. Verrucous plaque. 4:09 PM [facility] Gross Description Specimen A: Received is one formalin filled container labeled with the patient's name and designated left neck. The specimen consists of a shave measuring 5r2y3cm. Jar 0. Specimen B: Received is one formalin filled container labeled with the patient's name and designated right knee. The specimen consists of a shave measuring 86t4t8dv. Jar 0. [facility] Dermatopathology Laboratory performed the technical component only. 4:09 PM [facility] Embedded Images 4:09 PM [facility] DISCLAIMER An external and internal positive and negative controls are appropriate for the histochemical, immunohistochemical and immunofluorescence stain(s) in this case (if any), except where stated explicitly. The performance characteristics of the stain(s) cited in this report were developed and its performance characteristic determined by the Dermatopathology Laboratory at [facility]. These tests need not be, and therefore are not, approved by the [place] Food and Drug Administration. The tests are used for clinical purposes. 4:09 PM [facility] Pathology/Cytology TISSUE SPECIMEN FROM SKIN / Unknown 09/09/2018 09/13/2018 6:58 AM CDT Miscellaneous samples (specimen) TISSUE SPECIMEN FROM SKIN / Unknown 09/09/2018 09/13/2018 6:58 AM CDT Brittany Peña MD LAB - PATHOLOGY/CYTO LOGY ORDERABLES DERMATOPATHOLOGY LABORATORY [facility] - Department of Dermatology [address] [place] [address], 5th Floor Lab [address] [phone] documented in this encounter Visit Diagnoses Not on filedocumented in this encounter Care Teams Prop Sawyer Relationship Specialty Start Date End Date Sj Benson Update Information PCP - General 06/24/21 documented as of this encounter
--- OUTSIDE RECORDS SUMMARY | 2024-11-14 16:19 | XMS_ITS | Referral Summary ---
Author Organization [facility] Address [address] [place] [address] Care Team Providers Care Credit Reporting Clerk Name Role Phone Sj Benson Primary Care Provider Unavailab le Source Comments [facility],non-owned Affiliates and Associated Physician Practices is amultiple site organization consisting of ambulatory clinics and hospital sitesin [place], [place], [place] and [place]. This disclosure is being madepursuant to the Care Everywhere program and may not contain all information available regarding this patient. Last updated 18.[facility] Social History Tobacco Use Types Packs/Day Years Used Date Smoking Tobacco: Never Assessed Sex and Gender Information Value Date Recorded Sex Assigned at Not on file Gender Identity Not on file Sexual Orientation Not on file Plan of Treatment Not on file Care Teams Credit Reporting Clerk Relationship Specialty Start Date End Date Sj Benson Update Information PCP - General 06/24/21
--- OUTSIDE RECORDS SUMMARY | 2024-11-14 16:19 | XMS_ITS | Encounter Summary ---
Author Organization [facility] Address [address] [place] [address]. [place], [place] [id number] [place] [address] Care Team Providers Care Work Counselor Name Role Phone Sj Benson MD Primary Care Provider [phone] Encounter Details Date Type Department Care Team (Latest Contact Info) Description 07/29/2021 Travel Social History Tobacco Use Types Packs/Day Years [...] have Coronavirus / COVID-19? No / Unsure 07/29/2021 12:07 PM CDT documented as of this encounter Plan of Treatment Not on file documented as of this encounter Visit Diagnoses Not on filedocumented in this encounter Care Teams Work Counselor Relationship Specialty Start Date End Date Sj Benson MD PCP - General FAMILY PRACTICE 07/29/21 documented as of this encounter
--- OUTSIDE RECORDS SUMMARY | 2024-11-14 16:19 | XMS_ITS | Encounter Summary ---
Author Organization [facility] Address [address] [place] [address]. [place], [place] [address] [place] [address] Care Team Providers Care Director Oncology Name Role Phone Sj Benson MD Primary Care Provider [phone] Encounter Details Date Type Department Care Team (Latest Contact Info) Description 08/04/2021 Travel Social History Tobacco Use Types Packs/Day [...] have Coronavirus / COVID-19? No / Unsure 08/04/2021 1:22 PM CDT documented as of this encounter Plan of Treatment Not on file documented as of this encounter Visit Diagnoses Not on filedocumented in this encounter Care Teams Director Oncology Relationship Specialty Start Date End Date Sj Benson MD PCP - General FAMILY PRACTICE 07/29/21 documented as of this encounter
--- OUTSIDE RECORDS SUMMARY | 2024-11-14 16:19 | XMS_ITS | Encounter Summary ---
Author Organization [facility] Address [address] [place] [address]. [place] [address] [place] [address] Care Team Providers Care Vice President Network Development Name Role Phone Sj Benson MD Primary Care Provider [phone] Encounter Details Date Type Department Care Team (Latest Contact Info) Description 07/29/2021 12:15 PM CDT - 07/29/2021 12:21 PM CDT Hospital Encounter [facility] Cardiology EKG [address] [place], [place] [id number] Courtney Norris MD [address] [facility] [address] [place], [place] [id number] Discharge Disposition: Home or Self Care (Routine [...] PM CDT documented as of this encounter Medications at Time of Discharge [...] Cap Take 0.4 mg by mouth daily. Ascorbic Acid (VITAMIN C) 100 MG tablet Take 100 mg by mouth daily. 08/04/2021 docusate sodium 100 MG capsuleIndication s:Stenosis, spinal, lumbar Take 1 capsule (100 mg total) by mouth 2 (two) times daily for 10 days. 10 capsule 08/25/2021 09/04/2021 HYDROcodone-aceta minophen 5-325 MG tabletIndications :Acute Pain < 7 Day Supply Take 1 tablet by mouth every 6 (six) hours as needed for Pain. Indications: Acute Pain < 7 Day Supply 28 tablet 08/25/2021 09/01/2021 HYDROcodone-aceta minophen 5-325 MG tablet Take 1 tablet by mouth 4 (four) times daily as needed. 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 08/04/2021 traMADol 50 MG tablet Take 50 mg by mouth as needed. 08/04/2021 Zinc Sulfate (ZINC 15 OR) Take 1 tablet by mouth daily. 08/04/2021 documented as of this encounter Plan of Treatment Not on file documented as of this encounter Procedures Procedure Name Priority Date/Time Associated Diagnosis Comments ECG 12-LEAD Routine 07/29/2021 1:39 PM CDT Pre-op testing documented in this encounter Results * ECG 12 lead (07/29/2021 1:39 PM CDT) 07/29/2021 1:39 PM CDT Narrative [facility] - 07/30/2021 11:45 AM CDT ?[facility] ? [address] ? Test Date: ?2021-07-29 Pat Name: ? MONTE THUS ? Department: ? Room: ? Gender: ? Male ? Gate Watchman: ?? CDG : ?1950 ? Requested By: COURTNEY NORRIS Order Number: [id number] ? Reading MD: ?? Alcides Perry ? Measurements Intervals ?[place] ? Rate: ? 59 ? P: ?72 SD: ? 191 ?QRS: ?-5 QRSD: ? 121 ?T: ?-4 QT: ? 409 ? QTc: ?405 ? Interpretive Statements SINUS BRADYCARDIA MODERATE INTRAVENTRICULAR CONDUCTION DELAY NONSPECIFIC ST & T-WAVE ABNORMALITY No previous ECG available for comparison Procedure Note Alcides Perry MD - 07/30/2021 [facility] [address] Test Date: 2021-07-29 Pat Name: RYAN DELGADO Department: Room: Gender: Male Gate Watchman: CDG : 1950 Requested By: COURTNEY NORRIS Order Number: [id number] Reading MD: Alcides Perry Measurements Intervals [place] Rate: 59 P: 72 SD: 191 QRS: -5 QRSD: 121 T: -4 QT: 409 QTc: 405 Interpretive Statements SINUS BRADYCARDIA MODERATE INTRAVENTRICULAR CONDUCTION DELAY NONSPECIFIC ST & T-WAVE ABNORMALITY No previous ECG available for comparison us Courtney Norris MD ECG ORDERABLES Final Result [facility] documented in this encounter Visit Diagnoses Diagnosis Pre-op testing- Primary Preoperative examination, unspecified documented in this encounter Care Teams Vice President Network Development Relationship Specialty Start Date End Date Sj Benson MD PCP - General FAMILY PRACTICE 07/29/21 documented as of this encounter
--- OUTSIDE RECORDS SUMMARY | 2024-11-14 16:19 | XMS_ITS | Encounter Summary ---
Author Organization [facility] Address [address] [place] [address]. [place], [place] [address] [place] [address] Care Team Providers Care Library Aide Name Role Phone Sj Benson MD Primary Care Provider [phone] Encounter Details Date Type Department Care Team (Latest Contact Info) Description 11/18/2023 Travel Social History Tobacco Use Types Packs/Day [...] on filedocumented in this encounter Care Teams Library Aide Relationship Specialty Start Date End Date Sj Benson MD PCP - General FAMILY PRACTICE 07/29/21 documented as of this encounter
--- OUTSIDE RECORDS SUMMARY | 2024-11-14 16:19 | XMS_ITS | Encounter Summary ---
Author Organization [facility] Address [address] [place] [address]. [place] [address] [place] [address] Care Team Providers Care Coil Wrapper Name Role Phone Sj Benson MD Primary Care Provider [phone] Encounter Details Date Type Department Care Team (Late st Contact Info) Description 11/18/2023 9:00 AM PROPERTY HANDLER - 11/18/2023 9:13 AM [facility] Hospital Encounter [facility] [place] [address] Courtney Puente MD [address] [facility] [address] [place] [address] Discharge Disposition: Home or Self Care (Routine [...] on file documented as of this encounter Medications at [...] Cap Take 0.4 mg by mouth daily. documented as of this encounter Plan of Treatment Not on file documented as of this encounter Procedures Procedure Name Priority Date/Time Associated Diagnosis Comments ECG 12-LEAD Routine 11/18/2023 10:42 AM PROPERTY HANDLER Back complaints XR CHEST PA+LAT Routine 11/18/2023 10:14 AM PROPERTY HANDLER Back complaints documented in this encounter Results * ECG 12 lead (11/18/2023 10:42 AM PROPERTY HANDLER) 11/18/2023 10:4 2 AM PROPERTY HANDLER Narrative [facility] - 11/18/2023 12:32 PM PROPERTY HANDLER ?[facility] ? [address] [place] ? Test Date: ?2023-11-18 Pat Name: ? MONTE THUS ? Department: ?? 40 ? Room: ? Gender: ? Male ? Engineering Drawings Checker: ?? CDNG : ?1950 ? Requested By: COURTNEY PUENTE Order Number: [id number] ? Reading MD: ?? Monica Lu ? Measurements Intervals ?[place] ? Rate: ? 68 ? P: ?48 OK: ? 232 ?QRS: ?74 QRSD: ? 111 ?T: ?96 QT: ? 386 ? QTc: ?412 ? Interpretive Statements SINUS RHYTHM WITH FIRST DEGREE AV BLOCK MODERATE INTRAVENTRICULAR CONDUCTION DELAY NONSPECIFIC T-WAVE ABNORMALITY Compared to ECG 08/04/2021 13:59:08 First degree AV block now present Intraventricular conduction delay now present T-wave abnormality now present ERTY HANDLER Procedure Note Monica Lu MD - 11/18/2023 [facility] [place] [address] [address] [place] Test Date: 2023-11-18 Pat Name: RYAN DELGADO Department: 40 Room: Gender: Male Engineering Drawings Checker: YUE : 1950 Requested By: COURTNEY PUENTE Order Number: [id number] Reading MD: Monica Lu Measurements Intervals [place] Rate: 68 P: 48 OK: 232 QRS: 74 QRSD: 111 T: 96 QT: 386 QTc: 412 Interpretive Statements SINUS RHYTHM WITH FIRST DEGREE AV BLOCK MODERATE INTRAVENTRICULAR CONDUCTION DELAY NONSPECIFIC T-WAVE ABNORMALITY Compared to ECG 08/04/2021 13:59:08 First degree AV block now present Intraventricular conduction delay now present T-wave abnormality now present ERTY HANDLER us Courtney Puente MD ECG ORDERABLES Final Result [facility] * XR CHEST PA+LAT (11/18/2023 10:14 AM PROPERTY HANDLER) Anatomical Region Laterality Modality Chest Radiographic Sadie ging 11/18/2023 12:2 9 PM PROPERTY HANDLER Impressions 11/18/2023 12:30 PM PROPERTY HANDLER IMPRESSION: No acute findings Ordered By: COURTNEY PUENTE Interpreted By: Deepak Moe MD, 11/18/2023 12:29 PM Narrative 11/18/2023 12:30 PM PROPERTY HANDLER 2 VIEWS OF THE CHEST Clinical history: Preop Comparison: None 2 views of the chest demonstrate the cardiac silhouette to be normal in size and appearance. The pulmonary vessels are normally distributed. The Lungs are clear. No consolidations or effusions are seen. Procedure Note Deepak Moe MD - 11/18/2023 2 VIEWS OF THE CHEST Clinical history: Preop Comparison: None 2 views of the chest demonstrate the cardiac silhouette to be normal insize and appearance. The pulmonary vessels are normally distributed. TheLungs are clear. No consolidations or effusions are seen. IMPRESSION: No acute findings Ordered By: COURTNEY PUENTE Interpreted By: Deepak Moe MD, 11/18/2023 12:29 PM us Courtney Puente MD GENERAL IMAGING Final Result documented in this encounter Visit Diagnoses Diagnosis Back complaints- Primary Other symptoms referable to back documented in this encounter Care Teams Coil Wrapper Relationship Specialty Start Date End Date Sj Benson MD PCP - General FAMILY PRACTICE 07/29/21 documented as of this encounter
--- OUTSIDE RECORDS SUMMARY | 2024-11-14 16:19 | XMS_ITS | Encounter Summary ---
Author Organization [facility] Address [address] [place] [address]. [place] [address] [place] [address] Care Team Providers Care Stone Lathe Operator Name Role Phone Sj Benson MD Primary Care Provider [phone] Reason for Visit * Auth/Cert Specialty Diagnoses / Procedures Referred By Hector sosa Referred To Contact Diagnoses M48.061, Z01.818 Procedures LUMBAR LAMINECTOMY L4-5 Referral ID Status Reason Start Date Expiration Date Visits Re quested Visits Authorized [id number] 1 1 Encounter Details Date Type Department Care Team (Late st Contact Info) Description 08/25/2021 8:49 AM CDT Anesthesia Event [facility] [place] [address] Ortiz Jones MD [address] [facility] [address] [address] Marimar Mancilla FNP 1 [place] [address] Anesthesia Record Procedure Summary Procedure Name Responsible Anesthesiologist Anesthesia Start Time Anesthesia Stop Time LUMBAR LAMINECTOMY L4-5 (Spine Lumbar) Ortiz Jones MD 08/25/21 0849 08/25/21 1106 Events Date Time Event Comment 08/25/2021 0658 0658 AN Anesthesia Prepped 0714 AN RUBY ENGINEER Prepped 0849 An Start Patient ID and consent checked and patient reassessed. 0849 An Start Data 0852 Preoxygenation 0853 An Induction The patient was reevaluated immediately before moderate or deep sedation use and before anesthesia induction. 0858 An Intubation 0903 Quick Note Pt. Flipped to prone position, BBS= 0904 Anesthesia Ready 1053 Quick Note supine 1053 An Emergence 1055 An Extubation 1055 Face Mask Applied 1057 an stop data 1106 Post Anesthetic Care Handoff I completed my handoff to the receiving nurse during which we: 1. Identified the patient 2. Identified the responsible provider 3. Reviewed the pertinent medical history 4. Discussed the surgical course 5. Reviewed intra-op anesthesia management and issues during anesthesia 6. Set expectations for post-procedure period 7. Allowed opportunity for questions and acknowledgement of understanding. 1106 An Stop Meds Name Total midazolam 2 mg/2 mL injection 1 mg fentaNYL (SUBLIMAZE) 100 mcg/2 mL inject ion 100 mcg lidocaine (PF) (XYLOCAINE) 2% injection 50 mg propofol (DIPRIVAN) 200 mg/20 mL injecti on 150 mg rocuronium (ZEMURON) 50 mg/5 mL injectio n 50 mg ceFAZolin (ANCEF) 2 g in NS 100 mL IVPB 2 g dexamethasone (DECADRON) injection 8 mg glycopyrrolate (ROBINUL) injection 0.2 m g phenylephrine (DANTE-SYNEPHRINE) injection 500 mcg ondansetron (ZOFRAN) 4 mg/2 mL injection 4 mg sugammadex (BRIDION) 200 mg/2 mL injecti on 200 mg lactated ringers infusion 1,000 mL * Agents Name O2 N2O Air Inspired Sevoflurane Sevoflurane * Blood No blood administrations on file. Lines, Drains, and Airways Type Details Placement Removal Peripheral IV Placement Date: 03/12; Placement Time: 0730; Placed Outside of This Facility?: No; Size: 18 G; Orientation: Left; Location: Hand; Site Prep: Chlorhexidine; Local Anesthetic: None; Insertion attempts: 1; Ultrasound-guided Placement?: No; Patient Tolerance: Tolerated well; Removal Date: 08/25/21; Removal Time: 1500; Removal Reason: Patient Discharged 08/25/21 0730 by Cassidy Atkins RN 08/25/21 1500 by Niurka Thurman RN ETT Placement Date: 03/12; Placement Time: 0858; Placed Outside of This Facility?:No; Mask Ventilate: Prior to intubation, Easy; Size (mm) : 8; Endotracheal: Oral; Blade Type: MAC 4; Placement Method: Video Laryngoscope (see comments); View Grade: 1; Viewable Anatomy: Epiglottis, Arytenoid, Vocal cords; Insertion Attempts: 1; Placement Verified By: Capnography, Auscultation, Chest Rise; Placed By: RUBY ENGINEER; Extubation Assessment: Suctioned, Alert, Tolerated well, Patient spontaneously breathing, Able to follow simple commands, Deep breathes w/equal chest movements, Lifts et holds head > 5 seconds, Able to swallow, Atraumatic; Removal Date: 08/25/21; Removal Time: 1055; Removal Person: RUBY ENGINEER; Removal Reason: End of Case 08/25/21 0858 by Marilee Mcadams CRNA 08/25/21 1055 by Marilee Mcadams CRNA Surgical/Incision 08/25/21; 0932; Surg ical Wound; Back; Incision closed wih savita. Dressed with telfa island dressing.Drain not stitched in place and dressed with 2x2 and medipore tape.; 08/25/21; 1500; (patient discharged) 08/25/21 0932 by Janeth Muhammad RN 08/25/21 1500 by Niurka Tuhrman RN Closed/Suction Drain 08/25/21; 0956; 1; Distal; Back; Accordion; 10 Fr.; [id number]; [id number]; 04/21/26; Per Order 08/25/21 0956 by Janeth Muhammad RN 08/25/21 1450 by Niurka Thurman RN documented in this encounter Social History Tobacco Use Types Packs/Day Years [...] AM CDT documented as of this encounter OR Notes * Anesthesia Postprocedure Evaluation - Ortiz Jones MD - 08/25/2021 3:53 PM CDT Anesthesia Post-op Note Ryan Delgado Procedure(s): LUMBAR LAMINECTOMY L4-5 (N/A Spine Lumbar) Anesthesia type: general Vitals: 08/25/21 1500 BP: (!) 144/93 Vitals: 08/25/21 1500 Pulse: 69 Vitals: 08/25/21 1500 Resp: 18 Vitals: 08/25/21 1500 Temp: 36.4 ??C Vitals: 08/25/21 1500 SpO2: 96% Patient Location: PACU Level of Consciousness: awake and alert Pain Management: adequate analgesia Airway Patency: patent Respiratory Status: acceptable Cardiovascular Status: acceptable Post-Op Nausea: none Postoperative Hydration: euvolemic There were no known complications for this encounter. * Anesthesia Preprocedure Evaluation - Ortiz Jones MD - 08/25/2021 6:56 AM CDT Images from the original note were not included. Anesthesia ROS/MED History Reviewed: Patient summary , ECG, Family history anesthesia, Anesthesia history , Medications , Labs , Unchecked boxes are not applicable Pre-Anesthetic State: alert, awake and responds appropriately no history of anesthetic complications Pulmonary neg pulmonary ROS (-) sleep apnea, asthma, smoker Cardiovascular (+) hypertension, (well controlled)(-) past [place], CAD, angina Neuro/Psych (-) no TIA, no CVA, no substance use GI/Hepatic/Renal (+) GERD, (well controlled)(-) liver disease, renal disease Endo/Other (+) obese, arthritis, (OA) (-) diabetes, hypothyroidism, hyperthyroidism, blood dyscrasia GENERAL COMMENTS -- Sulfa Antibiotics -- Unknown Past Medical History: No date: Acid reflux No date: Back pain No date: 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 A week and a half after surgery bladder quit working, now wears a catheter bag. 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 No results for input(s): WBC, RBC, HGB, HCT, PLT, NA, K, CL, CO2, AGAP, BUN, CR, BUNCREATININ, GFRNON, GFR, GLU, CA in the last 72 hours. Anesthesia Plan ASA 2 Intravenous Induction Anesthesia type: general Plan for Airway: ETT Plan for Monitors: cerebral oximetry Plan for Post-op Pain Plan: IV analgesics, oral pain medication and as per surgeon Discussed potential risks of General Anesthesia including but not limited to corneal abrasion, visual impairment or visual loss, mouth injury, dental damage, sore throat, hoarseness, esophageal injury, awareness under anesthesia, nerve injury due to positioning, aspiration, pneumonia, stroke, cardiac event, adverse drug reactions and . GETA Informed Consent Anesthetic plan and risks discussed with patient of whom consent was obtained. . documented in this encounter Plan of Treatment Not on file documented as of this encounter Visit Diagnoses Not on filedocumented in this encounter Administered Medications Inactive Administered Medications - up to 3 most recent administrations Medication Order MAR Action Action Date Dose Rate Site ceFAZolin (ANCEF) 2 g in NS 100 mL IVPB 2 g, Intravenous, at 200 mL/hr, finance and administration manager to O.R., 1 dose, First dose on Wed08/25/21 at 0645, Pre-OpIndications:Stenosis, spinal, lumbar,Preop examination Given 08/25/2021 9:03 AM CDT 2 g dexamethasone (DECADRON) injection Intravenous, PRN, Starting on Wed08/25/21 at 0908, Until Wed08/25/21 at 1106, Anesthesia Intra-Op Given 08/25/2021 9:08 AM CDT 8 mg fentaNYL (SUBLIMAZE) injection Intravenous, PRN, Starting on Wed08/25/21 at 0853, Until Wed08/25/21 at 1106, Anesthesia Intra-Op Given 08/25/2021 9:31 AM CDT 50 mcg Given 08/25/2021 8:53 AM CDT 50 mcg glycopyrrolate (ROBINUL) injection Intravenous, PRN, Starting on Wed08/25/21 at 0937, Until Wed08/25/21 at 1106, Anesthesia Intra-Op Given 08/25/2021 9:41 AM CDT 0.1 mg Given 08/25/2021 9:37 AM CDT 0.1 mg lactated ringers infusion at 10 mL/hr, Intravenous, Continuous, Starting on Wed08/25/21 at 0645, Until Wed08/25/21 at 1725, Infuse at TKO rate, Pre-Op New Bag 08/25/2021 10:21 AM CDT New Bag 08/25/2021 8:43 AM CDT lidocaine (PF) (XYLOCAINE) 2 % injection Intravenous, PRN, Starting on Wed08/25/21 at 0853, Until Wed08/25/21 at 1106, Anesthesia Intra-Op Given 08/25/2021 8:53 AM CDT 50 mg midazolam (VERSED) injection Intravenous, PRN, Starting on Wed08/25/21 at 0847, Until Wed08/25/21 at 1106, Anesthesia Intra-Op Given 08/25/2021 8:47 AM CDT 1 mg ondansetron (ZOFRAN) injection Intravenous, PRN, Starting on Wed08/25/21 at 1029, Until Wed08/25/21 at 1106, Anesthesia Intra-Op Given 08/25/2021 10:29 AM CDT 4 mg phenylephrine (DANTE-SYNEPHRINE) injection Intravenous, PRN, Starting on Wed08/25/21 at 0946, Until Wed08/25/21 at 1106, Anesthesia Intra-Op Given 08/25/2021 10:14 AM CDT 100 mcg Given 08/25/2021 10:09 AM CDT 100 mcg Given 08/25/2021 10:04 AM CDT 100 mcg propofol (DIPRIVAN) IV bolus Intravenous, PRN, Starting on Wed08/25/21 at 0853, Until Wed08/25/21 at 1106, Anesthesia Intra-Op Given 08/25/2021 8:53 AM CDT 150 mg rocuronium (ZEMURON) injection Intravenous, PRN, Starting on Wed08/25/21 at 0856, Until Wed08/25/21 at 1106, Anesthesia Intra-Op Given 08/25/2021 8:56 AM CDT 50 mg sugammadex (BRIDION) injection Intravenous, PRN, Starting on Wed08/25/21 at 1048, Until Wed08/25/21 at 1106, Anesthesia Intra-Op Given 08/25/2021 10:48 AM CDT 200 mg documented in this encounter Care Teams Stone Lathe Operator Relationship Specialty Start Date End Date Sj Benson MD PCP - General FAMILY PRACTICE 07/29/21 documented as of this encounter
--- OUTSIDE RECORDS SUMMARY | 2024-11-14 16:19 | XMS_ITS | Encounter Summary ---
Author Organization [facility] Address [address] [place] [address]. [place] [address] [place] [address] Care Team Providers Care Autocutter Name Role Phone Sj Benson MD Primary Care Provider [phone] Encounter Details Date Type Department Care Team (Late st Contact Info) Description 11/18/2023 Orders Only [facility] [place] [address] Courtney Puente MD [address] [facility] [address] [place], [place] [id number] Social History Tobacco Use Types Packs/Day Years [...] on file documented as of this encounter Results * (ABNORMAL) URINALYSIS (11/18/2023 10:15 AM ELECTRONICS RECYCLER) SPECIMEN TYPE URINE CLEAN CATCH 11/18/2023 9:25 AM ELECTRONICS RECYCLER [facility] COLOR (U) LIGHT YELLOW 11/18/2023 10:59 AM ELECTRONICS RECYCLER [facility] TRANSPARENCY CLEAR 11/18/2023 10:59 AM ELECTRONICS RECYCLER [facility] SPECIFIC GRAVITY (U) 1.020 1.001 - 1.030 11/18/2023 10:59 AM [facility] U PH 5.5 5.0 - 9.0 11/18/2023 10:59 AM [facility] LEUKOCYTES (U) 75(A) NEGATIVE 11/18/2023 10:59 AM [facility] NITRITES NEGATIVE NEGATIVE 11/18/2023 10:59 AM [facility] PROTEIN RANDOM (U) NEGATIVE <30 MG/DL 11/18/2023 10:59 AM [facility] GLUCOSE (U) NORMAL NORMAL MG/DL 11/18/2023 10:59 AM [facility] KETONES MG/DL (U) NEGATIVE NEGATIVE MG/DL 11/18/2023 10:59 AM [facility] UROBILINOGEN NORMAL NORMAL MG/DL 11/18/2023 10:59 AM [facility] BILIRUBIN (U) NEGATIVE NEGATIVE MG/DL 11/18/2023 10:59 AM [facility] BLOOD (U) NEGATIVE NEGATIVE 11/18/2023 10:59 AM [facility] MUCUS RARE /LPF 11/18/2023 10:59 AM [facility] WBC/HPF 1 <6 /HPF 11/18/2023 10:59 AM [facility] RBC/HPF 3 <6 /HPF 11/18/2023 10:59 AM [facility] SQUAMOUS EPITHELIALS RARE /HPF 11/18/2023 10:59 AM [facility] URINE SPECIMEN OBTAINED BY CLEAN CATCH PROCEDURE / Unknown 11/18/2023 10:15 AM [facility] Courtney Puente MD URINE ORDERABLES Final Result [facility] [address] [place] [address], * PTT, PARTIAL THROMBOPLASTIN TIME (11/18/2023 9:36 AM ELECTRONICS RECYCLER) PTT 30.4 25.1 - 36.5 SEC 11/18/2023 11:16 AM ELECTRONICS RECYCLER [facility] 11/18/2023 9:36 AM ELECTRONICS RECYCLER us Courtney Puente MD LABORATORY Final Result Performing Organization Address [facility] Co de Phone Number [facility] [address] [place] [address], * PROTIME/INR, VENOUS (11/18/2023 9:36 AM ELECTRONICS RECYCLER) PROTIME 10.9 10.2 - 12.9 SEC 11/18/2023 11:16 AM ELECTRONICS RECYCLER [facility] INR 0.9 11/18/2023 11:16 AM ELECTRONICS RECYCLER [facility] Comment: Recommended INR Therapeutic Goals: ??2.0-3.0 Routine Therapy ??2.5-3.5 Mechanical Prosthetic Valves (High Risk) 11/18/2023 9:36 AM ELECTRONICS RECYCLER us Courtney Puente MD LABORATORY Final Result Performing Organization Address City/[facility]/ZIP Co de Phone Number [facility] [address] [place] [id number], * CELIAC DISEASE PANEL (11/18/2023 9:36 AM ELECTRONICS RECYCLER) INTERPRETATION REPORT 11/22/2023 9:26 AM ELECTRONICS RECYCLER [employer] ETTA JOHN Comment: No serological evidence for celiac disease is present. tTG may normalize in individuals with celiac disease who maintain a gluten free diet. If high suspicion of celiac disease, consider HLA DQ2 and DQ8 testing to rule out celiac disease. TISSUE TRANSGLUTAMINASE IGA AB <1.0 <15.0 U/mL 11/22/2023 9:26 AM ELECTRONICS RECYCLER [employer] ANDRES JOHN Comment: ? Value ?Interpretation ? <15.0 ?Antibody not detected > or = 15.0 ?Antibody detected IGA 101 70 - 320 mg/dL 11/22/2023 9:26 AM ELECTRONICS RECYCLER [employer] ANDRES JOHN Comment: Test Performed by Leticia Naranjo, [employer] [facility], [address] [place] [address] [place] Alamo M.D., Ph.D., Director of Laboratories , [facility] [id number] 11/18/2023 9:36 AM ELECTRONICS RECYCLER us Courtney Puente MD LABORATORY Final Result [employer] [address] , * (ABNORMAL) COMPREHENSIVE METABOLIC PANEL (11/18/2023 9:36 AM ELECTRONICS RECYCLER) GLUCOSE 97 70 - 99 MG/DL 11/18/2023 11:30 AM ELECTRONICS RECYCLER [facility] BUN 24(H) 7 - 18 MG/DL 11/18/2023 11:30 AM [facility] CREATININE S/P/B 1.51(H) 0.7 - 1.3 MG/DL 11/18/2023 11:30 AM [facility] SODIUM S/P/B 139 136 - 145 MMOL/L 11/18/2023 11:30 AM [facility] POTASSIUM S/P/B 3.9 3.5 - 5.1 MMOL/L 11/18/2023 11:30 AM [facility] CHLORIDE S/P/B 110(H) 100 - 108 MMOL/L 11/18/2023 11:30 AM [facility] CO2 24.5 21 - 32 MMOL/L 11/18/2023 11:30 AM [facility] CALCIUM S/P/B 9.2 8.5 - 10.1 MG/DL 11/18/2023 11:30 AM [facility] BILIRUBIN TOTAL S/P/B 1.1 0.2 - 1.2 MG/DL 11/18/2023 11:30 AM [facility] Comment: THIS ASSAY IS NOT RECOMMENDED FOR PATIENTS UNDERGOING TREATMENT WITH ELTROMBOPAG DUE TO THE POTENTIAL FOR FALSELY ELEVATED RESULTS. TOTAL PROTEIN S/P/B 6.9 6.4 - 8.2 G/DL 11/18/2023 11:30 AM [facility] ALBUMIN S/P/B 3.8 3.4 - 5.0 G/DL 11/18/2023 11:30 AM [facility] AST 14(L) 15 - 37 U/L 11/18/2023 11:30 AM [facility] ALT 25 16 - 60 U/L 11/18/2023 11:30 AM [facility] ALKALINE PHOSPHATASE S/P/B 66 50 - 136 U/L 11/18/2023 11:30 AM [facility] ANION GAP 4.5(L) 5 - 15 MMOL/L 11/18/2023 11:30 AM [facility] BUN CREATININE RATIO 15.9 6 - 26 11/18/2023 11:30 AM [facility] A/G RATIO 1.2 1.0 - 2.0 RATIO 11/18/2023 11:30 AM [facility] GFR ESTIMATE 48(L) >90 ML/MIN/1.7 3 M2 11/18/2023 11:30 AM [facility] Comment: NOTE: eGFR is not calculated for patients <18 years of age. This is an estimated GFR calculation using the new CKD EPI creatinine equation without race and so does not require a correction factor for race. This estimated GFR should not be used for calculating drug doses. 11/18/2023 9:36 AM ELECTRONICS RECYCLER us Courtney Puente MD LABORATORY Final Result [facility] [address] [place] [address], [place] [phone] * (ABNORMAL) CBC W/DIFF AUTOMATED (11/18/2023 9:36 AM ELECTRONICS RECYCLER) WBC 8.6 4.5 - 11.0 x10'3/uL 11/18/2023 10:51 AM [facility] RBC 4.72 4.70 - 6.10 x10'6/uL 11/18/2023 10:51 AM [facility] HGB 14.9 14.0 - 18.0 G/DL 11/18/2023 10:51 AM [facility] HCT 44.0 43.0 - 54.0 % 11/18/2023 10:51 AM [facility] MCV 93.2 80.0 - 94.0 FL 11/18/2023 10:51 AM [facility] MCH 31.6(H) 27.0 - 31.0 PG 11/18/2023 10:51 AM [facility] MCHC 33.9 32.0 - 36.0 G/DL 11/18/2023 10:51 AM [facility] RDW 12.3 11.5 - 14.5 % 11/18/2023 10:51 AM [facility] PLT 250 130 - 400 x10'3/uL 11/18/2023 10:51 AM [facility] MPV 10.2 9.3 - 12.2 FL 11/18/2023 10:51 AM [facility] DIFFERENTIAL TYPE AUTOMATED DIFFERENTIAL 11/18/2023 10:51 AM [facility] NEUTROPHILS % 64.6 % 11/18/2023 10:51 AM [facility] LYMPHOCYTES % 24.8 % 11/18/2023 10:51 AM [facility] MONOCYTES % 8.4 % 11/18/2023 10:51 AM [facility] EOSINOPHILS 1.4 % 11/18/2023 10:51 AM [facility] BASOPHILS 0.5 % 11/18/2023 10:51 AM [facility] IMMATURE GRANS % 0.3 % 11/18/20 10:51 AM [facility] ABS. NEUTROPHILS TOTAL 5.55 1.80 - 7.70 x10'3/uL 11/18/2023 10:51 AM [facility] ABS. LYMPHOCYTES 2.13 1.00 - 4.80 x10'3/uL 11/18/2023 10:51 AM [facility] ABS. MONOCYTES 0.72 0.30 - 0.82 x10'3/uL 11/18/2023 10:51 AM [facility] ABS. EOSINOPHILS 0.12 0.04 - 0.54 x10'3/uL 11/18/2023 10:51 AM [facility] ABS. BASOPHILS 0.04 0.01 - 0.08 x10'3/uL 11/18/2023 10:51 AM ELECTRONICS RECYCLER [facility] ABS. IMMATURE GRANULOCYTES 0.03 0.00 - 0.49 x10'3/uL 11/18/2023 10:51 AM ELECTRONICS RECYCLER [facility] 11/18/2023 9:36 AM ELECTRONICS RECYCLER Courtney Puente MD LABORATORY Final Result [facility] [address] [place] [address], documented in this encounter Visit Diagnoses Diagnosis Lumbar spondylosis- Primary Lumbosacral spondylosis without myelopathy documented in this encounter Care Teams Autocutter Relationship Specialty Start Date End Date Sj Benson MD PCP - General FAMILY PRACTICE 07/29/21 documented as of this encounter
--- OUTSIDE RECORDS SUMMARY | 2024-11-14 16:19 | XMS_ITS | Patient Health Summary ---
Author Organization [facility] Address [address] [place] [address] Care Team Providers Care Drop Count Associate Name Role Phone Sj Benson Mario Primary Care Provider Unavailab le Note from [facility],non-owned Affiliates and Associated Physician Practices is amultiple site organization consisting of ambulatory clinics and hospital sitesin [place], [place], [place] and [place]. This disclosure is being madepursuant to the Care Everywhere program and may not contain all information available regarding this patient. Last updated 18.[facility] Saisei Social History Tobacco Use Types Packs/Day Years Used Date Smoking Tobacco: Never Assessed Sex and Gender Information Value Date Recorded Sex Assigned at Not on file Gender Identity Not on file Sexual Orientation Not on file Procedures * PATH CONSULT ON REFERRED CASE(Performed 04/09/2021) Performed for Illness, unspecified * DERMATOPATH TECHNICAL REPORT(Performed 09/09/2018) Results * PATH CONSULT ON REFERRED CASE (04/09/2021 11:33 AM CDT) Final Diagnosis URINE, VOIDED, THIN PREP, CYTOLOGY (OSC:[id number]; 04/09/2021): - Negative for high grade urothelial carcinoma 04/14/2021 8:56 AM CDT [facility] Microscopic Description and Comment Microscopic examination substantiates the final diagnosis. 04/14/2021 8:56 AM CDT [facility] Clinical History Hematuria 04/14/2021 8:56 AM CDT [facility] Materials Received Prepared slide received from [facility] [place] [facility] [id number]. All material will be returned. 04/14/2021 8:56 AM CDT [facility] Disclaimer The performance characteristics of all immunohistochemical and indirect immunofluorescence stains (if any) cited in this report were determined by the Histopathology Laboratory of [facility]. Some of these tests were developed by our own laboratory and have not been cleared or approved by the US Food and Drug Administration. The FDA does not require this test to go through premarket FDA review. These tests are used for clinical purposes. They should not be regarded as investigational or for research. This laboratory is certified under the Clinical Laboratory Improvement Amendments (CLIA) as qualified to perform high complexity clinical laboratory testing. This case has been personally reviewed and interpreted by the attending (teaching) pathologist. 04/14/2021 8:56 AM CDT [facility] Case Report Surgical Pathology Report ? Case: [id number] ? Authorizing Provider: ??Preeti Carreon MD ? Collected: ? 04/09/2021 11:33 AM ? Ordering Location: ? [facility] ? Received: ?04/11/2021 11:33 AM ? Pathologist: ? Mike Thomas MD ? Specimen: ?Slide Consultation ? 04/14/2021 8:56 AM CDT [facility] Embedded Images 04/14/2021 8:56 AM CDT [facility] Pathology/Cytolo gy SURGICAL PATHOLOGY CONSULTATION AND REPORT ON REFERRED SLIDES PREPARED ELSEWHERE / Unknown 04/09/2021 11:33 AM CDT 04/11/2021 11:33 AM CDT Preeti Carreon MD LAB - PATHOLOGY/CYTO LOGY ORDERABLES Performing Organization Address [facility]/State/ZIP Co de Phone Number [facility] [address] [place] [address], [facility] [phone] * DERMATOPATH TECHNICAL REPORT (09/09/2018 12:00 AM CDT) Case Report Dermatopathology Report ? Case: [id number] ? Authorizing Provider: ??Brittany Peña MD ?Collected: ? 09/09/2018 12:00 AM ? Pathologist: ? Tiffany Astorga MD ? Received: ?09/13/2018 06:58 AM ? Specimens: ?? A) - Skin, left neck ? B) - Skin, right knee ? 8 4:09 PM CDT [facility]ER[facility]Y LAB[facility]ORY Clinical History A: ISK vs nevus vs R/O BCC. [place] brown papule. B: VV vs ISK vs SCC/PSO. Verrucous plaque. 4:09 PM T DERMATOPATHOLOGY LABORATORY Gross Description Specimen A: Received is one formalin filled container labeled with the patient's name and designated left neck. The specimen consists of a shave measuring 2m5v0mi. Jar 0. Specimen B: Received is one formalin filled container labeled with the patient's name and designated right knee. The specimen consists of a shave measuring [id number]. Jar 0. [facility] Dermatopathology Laboratory performed the technical component only. 4:09 PM T DERMATOPATHOLOGY LABORATORY Embedded Images 4:09 PM T DERMATOPATHOLOGY LABORATORY DISCLAIMER An external and internal positive and negative controls are appropriate for the histochemical, immunohistochemical and immunofluorescence stain(s) in this case (if any), except where stated explicitly. The performance characteristics of the stain(s) cited in this report were developed and its performance characteristic determined by the Dermatopathology Laboratory at [facility]. These tests need not be, and therefore are not, approved by the [place] Food and Drug Administration. The tests are used for clinical purposes. 4:09 PM [facility] DERMATOPATHOLOGY [facility]ORATORY Pathology/Cytology TISSUE SPECIMEN FROM SKIN / Unknown 09/09/2018 09/13/2018 6:58 AM CDT Miscellaneous samples (specimen) TISSUE SPECIMEN FROM SKIN / Unknown 09/09/2018 09/13/2018 6:58 AM CDT Brittany Peña MD LAB - PATHOLOGY/CYTO LOGY ORDERABLES DERMATOPATHOLOGY LABORATORY [facility] - Department of Dermatology [facility], 5th Floor Lab [address] [phone] Care Teams Drop Count Associate Relationship Specialty Start Date End Date Sj Benson Update Information PCP - General 06/24/21
--- OUTSIDE RECORDS SUMMARY | 2024-11-14 16:19 | XMS_ITS | Encounter Summary ---
Author Organization [facility] Address [address] [place] [address]. [place] [address] [place] [address] Care Team Providers Care Software Sales Consultant Name Role Phone Sj Benson MD Primary Care Provider [phone] Encounter Details Date Type Department Care Team (Latest Contact Info) Description 03/27/2022 8:36 AM CDT - 03/27/2022 11:59 PM CDT Hospital Encounter [facility] Diagnostic [facility] [place], [place] [id number] Courtney Blackmon MD [address] [place], [place] [id number] Discharge Disposition: Home or Self Care (Routine [...] Exposure Response Date Recorded In the last 10 days, have yo u been in contact with someone who was confirmed or suspected to have Coronavirus/COVID-19? No / Unsure 03/27/2022 8:31 AM CDT documented as of this encounter Medications [...] Procedure Name Priority Date/Time Associated Diagnosis Comments XR LUMB SPINE AP+LAT ONLY Routine 03/27/2022 9:03 AM CDT Status post lumbar surgery documented in this encounter Results * XR LUMB SPINE AP+LAT ONLY (03/27/2022 9:03 AM CDT) Anatomical Region Laterality Modality Spine Radiographic Sadie ging 03/27/2022 2:21 PM CDT Impressions 03/27/2022 2:22 PM CDT IMPRESSION: L4 surgery. ??Diffuse degenerative changes. Referred By: ?? Interpreted By: Dejan Chisholm MD, 03/27/2022 2:21 PM Narrative 03/27/2022 2:22 PM CDT Exam: Lumbar spine x-ray No comparison INDICATION: Evaluation after lumbar surgery TECHNIQUE: 2 views FINDINGS: Frontal view shows laminectomy changes at L4. ??Normal vertebral body heights and alignment. ??Multiple anterior, posterior, and lateral osteophytes. ??Mild disc height reduction and endplate sclerosis at multiple levels consistent with degenerative disc disease. Procedure Note Dejan Chisholm MD - 03/27/2022 Exam: Lumbar spine x-ray No comparison INDICATION: Evaluation after lumbar surgery TECHNIQUE: 2 views FINDINGS: Frontal view shows laminectomy changes at L4. Normal vertebralbody heights and alignment. Multiple anterior, posterior, and lateralosteophytes. Mild disc height reduction and endplate sclerosis atmultiple levels consistent with degenerative disc disease. IMPRESSION: L4 surgery. Diffuse degenerative changes. Referred By: Interpreted By: Dejan Chisholm MD, 03/27/2022 2:21 PM us Courtney Blackmon MD GENERAL IMAGING Final Result documented in this encounter Visit Diagnoses Diagnosis Status post lumbar surgery Other postprocedural status documented in this encounter Care Teams Software Sales Consultant Relationship Specialty Start Date End Date Sj Benson MD PCP - General FAMILY PRACTICE 07/29/21 documented as of this encounter
--- OUTSIDE RECORDS SUMMARY | 2024-11-14 16:19 | XMS_ITS | Encounter Summary ---
Author Organization [facility] Address [address] [place] [address]. [place] [address] [place] [address] Care Team Providers Care Technical Documentation Specialist Name Role Phone Sj Benson MD Primary Care Provider [phone] Reason for Visit * Reason Comments Abnormal EKG consult Surgical Clearance Encounter Details Date Type Department Care Team (Late st Contact Info) Description 08/04/2021 2:00 PM CDT Office Visit [facility], [facility] [address], [place] [id number] Ladarius Avery MD [facility]. [facility] [address], [place] [id number] Abnormal EKG (consult); Surgical Clearance Social History Tobacco Use Types Packs/Day Years [...] PM CDT documented as of this encounter Last Filed Vital Signs Vital Sign Reading Time Taken Comments Blood Pressure 154/80 08/04/2021 1:41 PM CDT Pulse 73 08/04/2021 1:41 PM CDT Temperature - - Respiratory Rate - - Oxygen Saturation 96% 08/04/2021 1:41 PM CDT Inhaled Oxygen Concentration - - Weight 101.2 kg (223 lb) 08/04/2021 1:41 PM CDT Height 182.9 cm (6') 08/04/2021 1:41 PM CDT Body Mass Index 30.24 08/04/2021 1:41 PM CDT documented in this encounter Patient Instructions * Patient Instructions* Ladarius Avery MD - 08/04/2021 2:00 PM CDT Images from the original note were not included. Patient Education Patient Education Heart Healthy Diet General With a heart healthy food plan, you will learn to make better food choices. This diet may help you lower your blood cholesterol level, manage your blood pressure, and lower your risk for heart problems. Smaller portions may also be helpful. Sodium is a type of mineral found in many foods. It helps keep the balance of fluids in your body. Too much sodium can raise your blood pressure. It can also make you take on extra water. This is called edema. Pay careful attention to how much salt or sodium is in your food. You may need to avoid salt or eat foods with less sodium. Cholesterol is a fat-like, waxy substance in your blood. It is normal to have some cholesterol in your blood because your body makes it. You also get extra cholesterol from all animal products. Theseare foods like meats, eggs, and dairy products. Too much cholesterol in your blood can block or damage your blood vessels. This can lead to a heart attack or stroke. Fats in your food have calories which give energy. Not all fats are bad. Some fats are healthy, like the fat found in fish, nuts, and olive oil. These are called unsaturated fats. They help manage body functions and lower cholesterol levels. Learn about the best fats to use in your diet and where to use them. Eating too much fat may make you more likely to weigh more than is healthy. This raises your risk of many heart problems. Fiber is found in plants. Meat and dairy products do not have fiber in them. Fiber can help you lower your unhealthy cholesterol level. You may need more water as you eat more fiber so you do not gethard stools. What lifestyle changes are needed? Eat a healthy diet and workout often. Try to use as many calories as you take in each day. What changes to diet are needed? ?? Eat oily fish at least 2 times a week. These are fish like tuna, salmon, and mackerel. ?? Limit sodium to no more than 2,300 mg of sodium per day. This is about 1 teaspoon (5 grams) of table salt. Use little or no salt when making food. Try other spices or seasoning instead. ?? Limit how much cholesterol you eat to less than 300 mg per day. You can do this by having lean meats. Also eat lots of fruits, vegetables, and fat-free and low-fat dairy products. ?? Limit how much trans fats you eat. Trans fats are found in many processed foods like stick margarine, shortening, and some fried foods. Also, lower how much hydrogenated fats you eat. They are used to make pastries, biscuits, cookies, crackers, chips, and many snack foods. ?? Have no more than 1 drink per day of beer, wine, and mixed drinks (alcohol). Who should use this diet? A heart healthy diet is good for everyone. What foods are good to eat? ?? Grains: Try to eat 6 to 8 servings of whole grain, high fiber foods each day. These are whole grain bread, cereals, brown rice, or pasta. ?? Fruits and vegetables: Eat 4 to 5 servings each day. Try to pick many kinds and colors. Try to eat more that are fresh or frozen. Look for low sodium or salt-free if you choose canned. Rinse canned items before cooking or eating. Dried peas, beans, and lentils are also good. ?? Dairy: Choose low fat (1%) or fat-free milk. Eat nonfat or low-fat products. ?? Protein: Try to eat more low fat or lean meats like chicken and turkey. Eat less red meat and eat more fish, eggs, egg whites, and beans instead. ?? Fats: Use good fats found in fish, nuts, and avocados. Try using olive oil, canola oil, and low-sodium and low-fat salad dressing and mayonnaise. Use corn, safflower, sunflower, and soybean oils. ?? Condiments: Use low-sodium or salt-free broths, soups, soy sauce, and condiments. Pepper, herbs,spices, vinegar, lemon or [place] juices are great for seasoning. Sugar, cocoa powder, honey, syrup, and jams may be eaten in small amounts. ?? Sweets: Low-fat, trans fat-free cookies, cakes, and pies; mejia crackers; animal crackers; low-fat fig bars; and rome snaps. What foods should be limited or avoided? ?? Grains: Salted breads, rolls, crackers, quick breads, self-rising flours, biscuit mixes, regularbread crumbs, instant hot cereals, commercially-prepared rice, pasta, stuffing mixes ?? Fruits and vegetables: Commercially-prepared potatoes and vegetable mixes, regular canned vegetables and juices, vegetables frozen with sauce or pickled vegetables, processed fruits with added sugar or salt ?? Dairy: Whole milk, malted milk, chocolate milk, buttermilk ?? Protein: Smoked, cured, salted, or canned meat, fish, or poultry such as pearce and sausages ?? Fats: Cut back on solid fats like butter, lard, and margarine. ?? Condiments and snacks: Salted and canned peas, beans, and olives; salted snack foods; fried foods; soda, juices, or other sweetened drinks; commercially- softened water. Miso, salsa, ketchup, barbecue sauce, Worcestershire sauce, soy sauce, and teriyaki sauce are also high in salt. ?? Sweets: High-fat baked goods such as muffins, donuts, pastries, commercial baked goods Helpful tips ?? When you go to a grocery store, have a list or a meal plan. Do not shop when you are hungry to avoid cravings for foods. ?? You need to know about the sodium and fat content of the food you eat. Read food labels with care. They will show you how much of each is in a serving. This amount is given as a percentage of the total amount you need each day. Reading the labels will help you make healthy food choices. ?? Avoid fast foods. ?? Watch your portions when eating out. Split an order or bring home half for another meal. ?? Talk to a dietitian for help. Where can I learn more? [employer] https://familydoctor.org/wkcy-bng-ftletnie-qlh-y-cujumwe-heart/ [place] [employer] Association https://www.heart.org/en/healthy-living/healthy-eating/eat-smart/nutrition-basic s/fqq-zcpy-xtc-lifestyle-recommendations NHS https://www.nhs.uk/live-well/eat-well/ Last Reviewed Date 2020-02-16 Consumer Information Use and Disclaimer This information is not specific medical advice and does not replace information you receive from your health care provider. This is only a brief summary of general information. It does NOT include all information about conditions, illnesses, injuries, tests, procedures, treatments, therapies, discharge instructions or life-style choices that may apply to you. You must talk with your health care provider for complete information about your health and treatment options. This information should not be used to decide whether or not to accept your health care provider???s advice, instructions or recommendations. Only your health care provider has the knowledge and training to provide advice that is right for you. Copyright Copyright ?? 2020 [employer]. and its affiliates and/or licensors. All rights reserved. documented in this encounter Progress Notes * Ladarius Avery MD - 08/04/2021 2:58 PM CDTAssociated Problem(s): Essential (primary) hypertension His blood pressure in the office is elevated today. I have asked him to continue to monitor his blood pressure. * Ladarius Avery MD - 08/04/2021 2:57 PM CDTAssociated Problem(s): Preoperative cardiovascular examination He is at low risk for the proposed intermediate risk cardiac procedure. He does not require any further cardiovascular evaluation. * Ladarius Avery MD - 08/04/2021 2:56 PM CDTAssociated Problem(s): Abnormal EKG I have reviewed both of the EKG from August 01, 2021 and August 04, 2021. There is no significant change in either 1 is significantly abnormal. * Ladarius Avery MD - 08/04/2021 2:00 PM CDT Reason for Visit: Abnormal EKG (consult) and Surgical Clearance History of Present Illness: I had the pleasure of seeing Lili Delgado in consultation at the [facility] in [place], [place]. Lili Delgado is a 70-year-old male who presents in consultation for Preoperative cardiovascular evaluation and abnormal EKG. He is being evaluated for laminectomy because of significant sciatica. He has had spinal surgery inthe past. He had an EKG in your office that showed nonspecific ST-T wave changes and sinus bradycardia. He has had no significant cardiac history. He denies any chest pain or shortness of breath. He is able to walk up a flight of stairs without chest pain or shortness of breath, but has difficulty because of his back. Diagnoses/Impression: In summary, Lili Delgado is a 70-year-old year old male who presents in consultation for Abnormal EKG and preoperative cardiovascular evaluation. Recommendations and Plan: Abnormal EKG I have reviewed both of the EKG from August 01, 2021 and August 04, 2021. There is no significant change in either 1 is significantly abnormal. Preoperative cardiovascular examination He is at low risk for the proposed intermediate risk cardiac procedure. He does not require any further cardiovascular evaluation. Essential (primary) hypertension His blood pressure in the office is elevated today. I have asked him to continue to monitor his blood pressure. Orders Placed This Encounter ??? omeprazole 20 MG capsule Sig: Take 20 mg by mouth daily. ??? ELECTROCARDIOGRAM Order Specific Question: Release to patient Answer: System release Lili Delgado will see us in follow-up in PRN. Lili Delgado voiced understanding of my recommendations and did not have any further questions. Thank you for allowing me to participate in the care of your patient. Medications: Current Outpatient Medications: ??? omeprazole 20 MG capsule, Take 20 mg by mouth daily., Disp: , Rfl: ??? baclofen 10 MG tablet, Take 1 tablet by mouth every 8 (eight) hours as needed. , Disp: , Rfl: ??? bethanechol 25 MG tablet, Take 25 mg by mouth 2 (two) times a day., Disp: , Rfl: ??? DULoxetine HCl 40 MG CAPSULE ENTERIC COATED PARTICLES, Take 40 mg by mouth daily., Disp: , Rfl: ??? finasteride 5 MG tablet, Take 5 mg by mouth daily., Disp: , Rfl: ??? omeprazole 20 MG capsule, Take 20 mg by mouth daily., Disp: , Rfl: ??? tamsulosin 0.4 MG Cap, Take 0.4 mg by mouth daily., Disp: , Rfl: Allergies Allergen Reactions ??? Sulfa Antibiotics Unknown Past Medical History: Diagnosis Date ??? Acid reflux ??? Back pain ??? 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 A week and a half after surgery bladder quit working, now wears a catheter bag. ??? Obesity Past Surgical History: Procedure Laterality Date ??? 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 Marital status: Spouse name: Not on file ??? Number of children: Not on file ??? Years of education: Not on file ??? Highest education level: Not on file Occupational History ??? Not on file Tobacco Use ??? Smoking status: Never Smoker ??? Smokeless tobacco: Never Used Substance and Sexual Activity ??? Alcohol use: Not Currently Comment: less than 10 in my lifetime ??? Drug use: Never ??? Sexual activity: Not on file Other Topics Concern ??? Service Not Asked ??? Blood Transfusions Not Asked ??? Caffeine Concern No Comment: daily ??? Occupational Exposure Not Asked ??? Hobby Hazards Not Asked ??? Sleep Concern Not Asked ??? Stress Concern Not Asked ??? Weight Concern Not Asked ??? Special Diet No ??? Back Care Not Asked ??? Exercise No ??? Bike Helmet Not Asked ??? Seat Belt Not Asked ??? Self-Exams Not Asked ??? Wheelchair Not Asked ??? Walker Not Asked ??? Upper extremity braces/slings Not Asked ??? Lower extermity braces/slings Not Asked ??? Self Care Not Asked Social History Narrative ??? Not on file Social Determinants of Health Financial Resource Strain: ??? Difficulty of Paying Living Expenses: Food Insecurity: ??? Worried About Running Out of Food in the Last Year: ??? Ran Out of Food in the Last Year: Transportation Needs: ??? Lack of Transportation (Medical): ??? Lack of Transportation (Non-Medical): Physical Activity: ??? Days of Exercise per Week: ??? Minutes of Exercise per Session: Stress: ??? Feeling of Stress : Social Connections: ??? Frequency of Communication with Friends and Family: ??? Frequency of Social Gatherings with Friends and Family: ??? Attends Alevism Services: ??? Active Member of Clubs or Organizations: ??? Attends Club or Organization Meetings: ??? Marital Status: Intimate Partner Violence: ??? Fear of Current or Ex-Partner: ??? Emotionally Abused: ??? Physically Abused: ??? Sexually Abused: Family History Adopted: Yes Problem Relation Name Age of Onset ??? Other (gastro intestinal resection, unknown reason) Daughter ??? Other (back surgery same day as me) Son ??? No Known Problems Son Family Status Relation Name Status ??? Daughter Alive ??? Son Alive ??? Son Alive Review of Systems Constitutional: Negative for chills, fever and weight loss. HENT: Negative for ear pain, hearing loss and sore throat. Eyes: Negative for blurred vision and double vision. Respiratory: Negative for cough, hemoptysis, shortness of breath and wheezing. Cardiovascular: Negative for chest pain, palpitations, orthopnea, claudication, leg swelling and PND. Gastrointestinal: Negative for abdominal pain, blood in stool, constipation, diarrhea, heartburn, melena, nausea and vomiting. Genitourinary: Negative for dysuria, hematuria and urgency. Musculoskeletal: Negative for joint pain and myalgias. Skin: Negative for rash. Neurological: Negative for dizziness, loss of consciousness, weakness and headaches. Endo/Heme/Allergies: Negative for environmental allergies and polydipsia. Does not bruise/bleed easily. Psychiatric/Behavioral: Negative for depression. Filed Vitals: 08/04/21 1341 BP: (!) 154/80 Pulse: 73 SpO2: 96% Weight: 101.2 kg (223 lb) Height: 6' (1.829 m) Cardiac Exam Rate/Rhythm: Normal rate and regular rhythm. PMI: PMI is not displaced. Pulses: Normal pulses. Carotid pulses are 2+ on the right side and 2+ on the left side. Radial pulses are 2+ on the right side and 2+ on the left side. Heart Sounds: Normal heart sounds. Normal S1 sounds. Normal S2 sounds. No gallop present. No S3. NoS4. Murmurs: Edema left: 0. Edema Right: 0. Physical Exam Constitutional: No distress. Healthy Appearance. HENT: Oropharynx clear. Eyes: Pupils equal, round, and reactive to light. Conjunctivae normal. Neck: Neck supple. Abdomen: Abdomen soft. Bowel sounds normal. No tenderness. No mass. No hepatomegaly. No splenomegaly. Abdominal aorta not palpably enlarged. No abdominal bruit present. Pulmonary: Effort normal. Breath sounds normal. No stridor. No rales. No wheezes. Skin: Dry. Warm. No rash. No cyanosis. No clubbing. No xanthoma. Musculoskeletal: No gross deformity.. Neurological: Alert. Oriented x 3. Appropriate mood and affect. Normal motor skills. Normal gait. Comments: Labs: I have personally reviewed the following labs Lab Results Component Value Date/Time WBC 7.8 07/29/2021 12:40 PM HGB 13.7 (L) 07/29/2021 12:40 PM HCT 40.6 (L) 07/29/2021 12:40 PM PLT 241 07/29/2021 12:40 PM Lab Results Component Value Date/Time NA 141 07/29/2021 12:40 PM K 4.0 07/29/2021 12:40 PM CL 109 (H) 07/29/2021 12:40 PM CO2 26.4 07/29/2021 12:40 PM BUN 22 (H) 07/29/2021 12:40 PM CR 1.45 (H) 07/29/2021 12:40 PM GLU 89 07/29/2021 12:40 PM No results found for: CHOL, TRI, HDL, LDL Tests: Electrocardiogram: I have reviewed the electrocardiogram from August 01, 2021 and it shows normal sinus rhythm with nonspecific ST-T wave abnormalities. I have also reviewed the EKG from and it shows normal sinus rhythm. documented in this encounter Plan of Treatment Not on file documented as of this encounter Procedures Procedure Name Priority Date/Time Associated Diagnosis Comments ELECTROCARDIOGRAM (NON MIDMARK ACQUIRED) Routine 08/04/2021 1:59 PM CDT Abnormal EKG documented in this encounter Results * ELECTROCARDIOGRAM (08/04/2021 1:59 PM CDT) 08/04/2021 1:59 PM CDT Narrative [facility] - 08/07/2021 12:50 PM CDT ?[facility] ? Test Date: ?2021-08-04 Pat Name: ? MONTE THUS ? Department: ? Room: ? Gender: ? Male ? 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 dms : ?1950 ? Requested By: LADARIUS AVERY Order Number: [id number] ?Reading : ?? Ladarius Avery ? Measurements Intervals ?[place]ahl ? Rate: ? 69 ? P: ?50 IN: ? 193 ?QRS: ?84 QRSD: ? 109 ?T: ?76 QT: ? 384 ? QTc: ?412 ? Interpretive Statements SINUS RHYTHM COMPARED TO PREVIOUS TRACING No significant change Procedure Note Ladarius Avery MD - 08/07/2021 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: dong : 1950 Requested By: LADARIUS AVERY Order Number: [id number] Reading MD: Ladarius Avery Measurements Intervals Sheldahl Rate: 69 P: 50 IN: 193 QRS: 84 QRSD: 109 T: 76 QT: 384 QTc: 412 Interpretive Statements SINUS RHYTHM COMPARED TO PREVIOUS TRACING No significant change us Ladarius Avery MD PROCEDURES-ORDERABLE NO ELEUTERIO RGE Final Result [facility] documented in this encounter Visit Diagnoses Diagnosis Abnormal EKG- Primary Nonspecific abnormal electrocardiogram (ECG) (EKG) Preoperative cardiovascular examination Pre-operative cardiovascular examination Essential (primary) hypertension Unspecified essential hypertension documented in this encounter Care Teams Technical Documentation Specialist Relationship Specialty Start Date End Date Sj Benson MD PCP - General FAMILY PRACTICE 07/29/21 documented as of this encounter
--- OUTSIDE RECORDS SUMMARY | 2024-11-14 16:19 | XMS_ITS | Clinical Summary ---
Author Organization [facility] Address [address] [place] [address]. [place] [address] [place] [address] Care Team Providers Care Top Former Name Role Phone Sj Benson MD Primary Care Provider [phone] Allergies Active Allergy Reactions Criticality Noted Date Comments Sulfa Antibiotics Unknown 07/31/2021 Medications baclofen 10 MG tablet Take 1 tablet by mouth every 8 (eight) hours as needed. Active DULoxetine HCl 40 MG CAPSULE ENTERIC COATED PARTICLES Take 40 mg by mouth daily. Active omeprazole 20 MG capsule Take 20 mg by mouth daily. Active finasteride 5 MG tablet Take 5 mg by mouth daily. Active tamsulosin 0.4 MG Cap Take 0.4 mg by mouth daily. Active bethanechol 25 MG tablet Take 25 mg by mouth 2 (two) times a day. Active Active Problems Problem Noted Date Diagnosed Date Preoperative cardiovascular examination 08/04/20 21 Assessment & Plan (08/04/2021 2:58 PM CDT): He is at low risk for the proposed intermediate risk cardiac procedure. He does not require any further cardiovascular evaluation. Essential (primary) hypertension 08/04/2021 Assessment & Plan (08/04/2021 2:59 PM CDT): His blood pressure in the office is elevated today. I have asked him to continue to monitor his blood pressure. Abnormal EKG 07/31/2021 Assessment & Plan (08/04/2021 2:56 PM CDT): I have reviewed both of the EKG from August 01, 2021 and August 04, 2021. There is no significant change in either 1 is significantly abnormal. Immunizations Name Administration Dates Next Due MODERNA COVID-19 (12+) MRNA, LNP-S, PF, 100 MCG/ 0.5 ML DOSE 03/10/2021,02/10/2021 Family History * Patient is adopted Medical History Relation Comments gastro intestinal resection, unknown reason Daug hter back surgery same day as me Son 1 No Known Problems Son 2 Relation Status Comments Daughter Alive Son 1 Alive Son 2 Alive Social History Tobacco Use Types Packs/Day Years [...] on file Sexual Orientation Not on file Last Filed Vital Signs Vital Sign Reading [...] Mass Index 29.75 08/25/2021 7:45 AM CDT Plan of Treatment Health Maintenance Due Date Last Done Comments Hepatitis C 1966 Zoster Vaccines (1 of 2) 1998 RSV Immunization or 60+ Years (1 - 1-dose 60+ series) 2008 Annual Medicare Wellness Visit 2013 Pneumococcal Vaccine: 65+ Years (1 of 1 - PCV) 2013 COVID-19 Vaccine (3 - 2023-2 5 season) 2024 03/10/2021, 02/10/2021 Influenza Adult (#1) 2024 DTaP, Tdap and Td Vaccines ( 3 - Td or Tdap) 08/10/2027 08/10/2017, 03/04/2017 Meningococcal Vaccine Aged Out No lemuel riley eligible based on patient's age to complete this topic RSV Immunizations Under 20 Months Aged Out No longer eligible b ased on patient's age to complete this topic Medical Devices Implanted Type Area Breeding Technician Device Identifier Shelf Expiration Date Model / Serial / Lot Stimulator Lead-12/07/2023 Implanted:Qty: 1 on 12/07/[address] [employer] [id number] / / Stimulator Implant- 024 Implanted:Qty: 1 on 12/07/[address] [employer] [facility] [employer] [id number] / / Description:MR CONDITIONAL A T 1.5 T ONLY, NEED REMOTE TO TURN OFF STIMULATION , NORMAL JACKI , MAX 30 MINUTE SCAN TIME IN 60 MINUTE WINDOW Insurance MEDICARE [facility] Care Teams Top Former Relationship Specialty Start Date End Date Sj Benson MD PCP - General FAMILY PRACTICE 07/29/21
--- OUTSIDE RECORDS SUMMARY | 2024-11-14 16:19 | XMS_ITS | Encounter Summary ---
Author Organization [facility] Address [address] [place] [address]. [place], [place] [address] [place] [id number] Care Team Providers Care Survey Director Name Role Phone Sj Benson MD Primary Care Provider [phone] Encounter Details Date Type Department Care Team (Latest Contact Info) Description 08/25/2021 Travel Social History Tobacco Use Types Packs/Day [...] AM CDT documented as of this encounter Plan of Treatment Not on file documented as of this encounter Visit Diagnoses Not on filedocumented in this encounter Care Teams Survey Director Relationship Specialty Start Date End Date Sj Benson MD PCP - General FAMILY PRACTICE 07/29/21 documented as of this encounter
--- OUTSIDE RECORDS SUMMARY | 2024-11-14 16:19 | XMS_ITS | Encounter Summary ---
Author Organization [facility] Address [address] [place] [address]. [place], [place] [address] [place] [id number] Care Team Providers Care Maintenance Shop Clerk Name Role Phone Sj Benson MD Primary Care Provider [phone] Reason for Visit * Reason Comments Outside Record (SCAN) Encounter Details Date Type Department Care Team ([facility] [address] Contact Info) Description 11/12/2023 Scan [facility] [place] [address] Scanned, [facility] Outside Record (SCAN) Social History Tobacco Use Types Packs/Day Years [...] on filedocumented in this encounter Care Teams Maintenance Shop Clerk Relationship Specialty Start Date End Date Sj Benson MD PCP - General FAMILY PRACTICE 07/29/21 documented as of this encounter
--- OUTSIDE RECORDS SUMMARY | 2024-11-14 16:19 | XMS_ITS | Encounter Summary ---
Author Organization [facility] Address [address] [place] [address]. [place] [address] [place] [address] Care Team Providers Care Mining Technician Name Role Phone Sj Benson MD Primary Care Provider [phone] Encounter Details Date Type Department Care Team (Late st Contact Info) Description 11/18/2023 9:14 AM VULCANIZED FIBER UNIT OPERATOR - 11/18/2023 11:[address] [facility] Hospital Encounter [facility] [place] [address] Courtney Puente MD 3 [facility] [address] [place] [address] Discharge Disposition: Home or Self Care (Routine [...] Procedure Name Priority Date/Time Associated Diagnosis Comments HC URINALYSIS AUTO W/O MICRO Routine 11/18/2023 10:15 AM VULCANIZED FIBER UNIT OPERATOR Lumbar spondylosis CELIAC DISEASE COMP PANEL Routine 11/18/2023 9:36 AM VULCANIZED FIBER UNIT OPERATOR Lumbar spondylosis PARTIAL THROMBOPLASTIN TIME,PTT Routine 11/18/2023 9:36 AM VULCANIZED FIBER UNIT OPERATOR Lumbar spondylosis PROTHROMBIN TIME, VENOUS Routine 11/18/2023 9:36 AM VULCANIZED FIBER UNIT OPERATOR Lumbar spondylosis COMPREHENSIVE METABOLIC PANEL Routine 11/18/2023 9:36 AM VULCANIZED FIBER UNIT OPERATOR Lumbar spondylosis CBC W/DIFF AUTOMATED Routine 11/18/2023 9:36 AM VULCANIZED FIBER UNIT OPERATOR Lumbar spondylosis documented in this encounter Results * (ABNORMAL) URINALYSIS (11/18/2023 10:15 AM VULCANIZED FIBER UNIT OPERATOR) SPECIMEN TYPE URINE CLEAN CATCH 11/18/2023 9:25 AM [facility] COLOR (U) LIGHT YELLOW 11/18/2023 10:59 AM [facility] TRANSPARENCY CLEAR 11/18/2023 10:59 AM [facility] SPECIFIC GRAVITY (U) 1.020 1.001 - 1.030 11/18/2023 10:59 AM [facility] U PH 5.5 5.0 - 9.0 11/18/2023 10:59 AM [facility] LEUKOCYTES (U) 75(A) NEGATIVE 11/18/2023 10:59 AM [facility] NITRITES NEGATIVE NEGATIVE 11/18/2023 10:59 AM [facility] PROTEIN RANDOM (U) NEGATIVE <30 MG/DL 11/18/2023 10:59 AM VULCANIZED FIBER UNIT OPERATOR [facility] GLUCOSE (U) NORMAL NORMAL MG/DL 11/18/2023 10:59 AM VULCANIZED FIBER UNIT OPERATOR [facility] KETONES MG/DL (U) NEGATIVE NEGATIVE MG/DL 11/18/2023 10:59 AM [facility] UROBILINOGEN NORMAL NORMAL MG/DL 11/18/2023 10:59 AM [facility] BILIRUBIN (U) NEGATIVE NEGATIVE MG/DL 11/18/2023 10:59 AM VULCANIZED FIBER UNIT OPERATOR [facility] BLOOD (U) NEGATIVE NEGATIVE 11/18/2023 10:59 AM VULCANIZED FIBER UNIT OPERATOR [facility] MUCUS RARE /LPF 11/18/2023 10:59 AM [facility] WBC/HPF 1 <6 /HPF 11/18/2023 10:59 AM VULCANIZED FIBER UNIT OPERATOR [facility] RBC/HPF 3 <6 /HPF 11/18/2023 10:59 AM [facility] SQUAMOUS EPITHELIALS RARE /HPF 11/18/2023 10:59 AM VULCANIZED FIBER UNIT OPERATOR [facility] URINE SPECIMEN OBTAINED BY CLEAN CATCH PROCEDURE / Unknown 11/18/2023 10:15 AM VULCANIZED FIBER UNIT OPERATOR Courtney Puente MD URINE ORDERABLES Final Result [facility] [address] [place] [address], * PTT, PARTIAL THROMBOPLASTIN TIME (11/18/2023 9:36 AM VULCANIZED FIBER UNIT OPERATOR) PTT 30.4 25.1 - 36.5 SEC 11/18/2023 11:16 AM VULCANIZED FIBER UNIT OPERATOR [facility] 11/18/2023 9:36 AM VULCANIZED FIBER UNIT OPERATOR us Courtney Puente MD LABORATORY Final Result Performing Organization Address City/[facility]/ZIP Co de Phone Number [facility] [address] [place] [address], * PROTIME/INR, VENOUS (11/18/2023 9:36 AM VULCANIZED FIBER UNIT OPERATOR) PROTIME 10.9 10.2 - 12.9 SEC 11/18/2023 11:16 AM VULCANIZED FIBER UNIT OPERATOR [facility] INR 0.9 11/18/2023 11:16 AM VULCANIZED FIBER UNIT OPERATOR [facility] Comment: Recommended INR Therapeutic Goals: ??2.0-3.0 Routine Therapy ??2.5-3.5 Mechanical Prosthetic Valves (High Risk) 11/18/2023 9:36 AM VULCANIZED FIBER UNIT OPERATOR us Courtney Puente MD LABORATORY Final Result Performing Organization Address [facility] Co de Phone Number [facility] [address] [place] [address], * CELIAC DISEASE PANEL (11/18/2023 9:36 AM VULCANIZED FIBER UNIT OPERATOR) INTERPRETATION REPORT 11/22/2023 9:26 AM [employer] ANDRES JOHN Comment: No serological evidence for celiac disease is present. tTG may normalize in individuals with celiac disease who maintain a gluten free diet. If high suspicion of celiac disease, consider HLA DQ2 and DQ8 testing to rule out celiac disease. TISSUE TRANSGLUTAMINASE IGA AB <1.0 <15.0 U/mL 11/22/2023 9:26 AM [facility] ANDRES JOHN Comment: ? Value ?Interpretation ? <15.0 ?Antibody not detected > or = 15.0 ?Antibody detected IGA 101 70 - 320 mg/dL 11/22/2023 9:26 AM VULCANIZED FIBER UNIT OPERATOR [employer] ANDRES ALVARO Comment: Test Performed by [id number] | [employer], [employer] [facility], [address] [place], [place] Kingston Alamo M.D., Ph.D., Director of Laboratories , [place] [id number] 11/18/2023 9:36 AM VULCANIZED FIBER UNIT OPERATOR Courtney Puente MD LABORATORY Final Result [employer] [facility] [address] [place], [place] , [place] [phone] * (ABNORMAL) COMPREHENSIVE METABOLIC PANEL (11/18/2023 9:36 AM VULCANIZED FIBER UNIT OPERATOR) GLUCOSE 97 70 - 99 MG/DL 11/18/2023 11:30 AM VULCANIZED FIBER UNIT OPERATOR [facility] BUN 24(H) 7 - 18 MG/DL 11/18/2023 11:30 AM [facility] CREATININE S/P/B 1.51(H) 0.7 - 1.3 MG/DL 11/18/2023 11:30 AM [facility] SODIUM S/P/B 139 136 - 145 MMOL/L 11/18/2023 11:30 AM [facility] POTASSIUM S/P/B 3.9 3.5 - 5.1 MMOL/L 11/18/2023 11:30 AM [facility] CHLORIDE S/P/B 110(H) 100 - 108 MMOL/L 11/18/2023 11:30 AM [facility] CO2 24.5 21 - 32 MMOL/L 11/18/2023 11:30 AM [facility] CALCIUM S/P/B 9.2 8.5 - 10.1 MG/DL 11/18/2023 11:30 AM [facility] BILIRUBIN TOTAL S/P/B 1.1 0.2 - 1.2 MG/DL 11/18/2023 11:30 AM [facility] Comment: THIS ASSAY IS NOT RECOMMENDED FOR PATIENTS UNDERGOING TREATMENT WITH ELTROMBOPAG DUE TO THE POTENTIAL FOR FALSELY ELEVATED RESULTS. TOTAL PROTEIN S/P/B 6.9 6.4 - 8.2 G/DL 11/18/2023 11:30 AM [facility] ALBUMIN S/P/B 3.8 3.4 - 5.0 G/DL 11/18/2023 11:30 AM [facility] AST 14(L) 15 - 37 U/L 11/18/2023 11:30 AM [facility] ALT 25 16 - 60 U/L 11/18/2023 11:30 AM [facility] ALKALINE PHOSPHATASE S/P/B 66 50 - 136 U/L 11/18/2023 11:30 AM [facility] ANION GAP 4.5(L) 5 - 15 MMOL/L 11/18/2023 11:30 AM [facility] BUN CREATININE RATIO 15.9 6 - 26 11/18/2023 11:30 AM [facility] A/G RATIO 1.2 1.0 - 2.0 RATIO 11/18/2023 11:30 AM [facility] GFR ESTIMATE 48(L) >90 ML/MIN/1.7 3 M2 11/18/2023 11:30 AM [facility] Comment: NOTE: eGFR is not calculated for patients <18 years of age. This is an estimated GFR calculation using the new CKD EPI creatinine equation without race and so does not require a correction factor for race. This estimated GFR should not be used for calculating drug doses. 11/18/2023 9:36 AM VULCANIZED FIBER UNIT OPERATOR Courtney Puente MD LABORATORY Final Result [facility] [address] [place] [address], [place] [phone] * (ABNORMAL) CBC W/DIFF AUTOMATED (11/18/2023 9:36 AM VULCANIZED FIBER UNIT OPERATOR) [facility] WBC 8.6 4.5 - 11.0 x10'3/uL 11/18/2023 10:51 AM VULCANIZED FIBER UNIT OPERATOR [facility] RBC 4.72 4.70 - 6.10 x10'6/uL 11/18/2023 10:51 AM [facility] HGB 14.9 14.0 - 18.0 G/DL 11/18/2023 10:51 AM [facility] HCT 44.0 43.0 - 54.0 % 11/18/2023 10:51 AM [facility] MCV 93.2 80.0 - 94.0 FL 11/18/2023 10:51 AM [facility] MCH 31.6(H) 27.0 - 31.0 PG 11/18/2023 10:51 AM [facility] MCHC 33.9 32.0 - 36.0 G/DL 11/18/2023 10:51 AM [facility] RDW 12.3 11.5 - 14.5 % 11/18/2023 10:51 AM [facility] PLT 250 130 - 400 x10'3/uL 11/18/2023 10:51 AM [facility] MPV 10.2 9.3 - 12.2 FL 11/18/2023 10:51 AM [facility] DIFFERENTIAL TYPE AUTOMATED DIFFERENTIAL 11/18/2023 10:51 AM [facility] NEUTROPHILS % 64.6 % 11/18/2023 10:51 AM VULCANIZED FIBER UNIT OPERATOR [facility] LYMPHOCYTES % 24.8 % 11/18/2023 10:51 AM VULCANIZED FIBER UNIT OPERATOR [facility] MONOCYTES % 8.4 % 11/18/2023 10:51 AM VULCANIZED FIBER UNIT OPERATOR [facility] EOSINOPHILS 1.4 % 11/18/2023 10:51 AM VULCANIZED FIBER UNIT OPERATOR [facility] BASOPHILS 0.5 % 11/18/2023 10:51 AM VULCANIZED FIBER UNIT OPERATOR [facility] IMMATURE GRANS % 0.3 % 11/18/20 10:51 AM VULCANIZED FIBER UNIT OPERATOR [facility] ABS. NEUTROPHILS TOTAL 5.55 1.80 - 7.70 x10'3/uL 11/18/2023 10:51 AM [facility] ABS. LYMPHOCYTES 2.13 1.00 - 4.80 x10'3/uL 11/18/2023 10:51 AM VULCANIZED FIBER UNIT OPERATOR [facility] ABS. MONOCYTES 0.72 0.30 - 0.82 x10'3/uL 11/18/2023 10:51 AM VULCANIZED FIBER UNIT OPERATOR [facility] ABS. EOSINOPHILS 0.12 0.04 - 0.54 x10'3/uL 11/18/2023 10:51 AM VULCANIZED FIBER UNIT OPERATOR [facility] ABS. BASOPHILS 0.04 0.01 - 0.08 x10'3/uL 11/18/2023 10:51 AM VULCANIZED FIBER UNIT OPERATOR [facility] ABS. IMMATURE GRANULOCYTES 0.03 0.00 - 0.49 x10'3/uL 11/18/2023 10:51 AM [facility] 11/18/2023 9:36 AM VULCANIZED FIBER UNIT OPERATOR us Courtney Puente MD LABORATORY Final Result [facility] [address] [place] [address], documented in this encounter Visit Diagnoses Diagnosis Lumbar spondylosis Lumbosacral spondylosis without myelopathy documented in this encounter Care Teams Mining Technician Relationship Specialty Start Date End Date Sj Benson MD PCP - General FAMILY PRACTICE 07/29/21 documented as of this encounter"
--- OUTSIDE RECORDS SUMMARY | 2024-11-14 16:19 | XMS_ITS | Encounter Summary ---
Author Organization [facility] Address [address] [place] [address]. [place], [place] [address] [place] [address] Care Team Providers Care Treasury Assistant Name Role Phone Sj Benson MD Primary Care Provider [phone] Reason for Visit * Reason Comments Outside Record (SCAN) Encounter Details Date Type Department Care Team ([facility] Contact Info) Description 06/13/2024 Scan [facility] [place] [address] Scanned, Doc Hospital Outside Record (SCAN) Social History Tobacco Use [...] on filedocumented in this encounter Care Teams Treasury Assistant Relationship Specialty Start Date End Date Sj Benson MD PCP - General FAMILY PRACTICE 07/29/21 documented as of this encounter
--- OUTSIDE RECORDS SUMMARY | 2024-11-14 16:19 | XMS_ITS | Encounter Summary ---
Author Organization [facility] Address [address] [place] [address]. [place] [address] [place] [address] Care Team Providers Care Intermediate School Teacher Name Role Phone Sj Benson MD Primary Care Provider [phone] Reason for Visit * Auth/Cert Specialty Diagnoses / Procedures Referred By Hector sosa Referred To Contact Diagnoses M48.061, Z01.818 Procedures LUMBAR LAMINECTOMY L4-5 Referral ID Status Reason Start Date Expiration Date Visits Re quested Visits Authorized [id number] 1 1 Encounter Details Date Type Department Care Team (Late st Contact Info) Description 08/25/2021 8:30 AM CDT - 08/25/2021 10:45 AM CDT Surgery [facility] [place], [place] [address] Courtney Blackmon MD [address] [facility] [address] [place] [address] LUMBAR LAMINECTOMY L4-5 Surgery Details Date/Time Status Location OR Service Patient Class Case Class Case Type Trauma Case? 08/25/2021 8:30 AM Posted [facility] OR 7 Neurosurgery Short Stay/Outpat ient Surgery E - Elective No Panel 1 Procedure LRB Anes Op Region Wound Class Comments LUMBAR LAMINECTOMY L4-5 N/A General Spine Lumbar Vincenzo an Surgeon Surgeon Role Service Panel Courtney Blackmon MD Primary Neurosurgery 1 Case Notes SCHED BY FAX ON 07/29/21 [facility] PHONE ASSESS Special Needs PRONERNFA documented in this encounter Social History Tobacco [...] Sign Reading Time Taken Comments Blood Pressure 153/96 08/25/2021 7:45 AM CDT Pulse 60 08/25/2021 7:45 AM CDT Temperature 36.8 ??C (98.2 ??F) 08/25/2021 7:45 AM CD T Respiratory Rate 16 08/25/2021 7:45 AM CDT Oxygen Saturation 99% 08/25/2021 7:45 AM CDT Inhaled Oxygen Concentration - - Weight [...] No submerging in water for 6 weeks. Rtip will be removed in office. Follow Dr. [...] through Care Everywhere. * Laminectomy Discharge Instructions (Haitian) * General Anesthesia Discharge Instructions (Haitian) * Hydrocodone and Acetaminophen, ADULT (Haitian) * Docusate, ADULT (Haitian) documented in this encounter Medications at Time [...] Per phone interview, patient denies having a gear keeper or previous cardiac testing with exception of recent preop EKG. Testing in Cardiology and copied. Clearances requested by surgeon per order form, please request copies once received. Addendum 08/06- Patient rescheduled 2/2 positive UA results. Patient had also been referred to cardiology per PCP for surgical clearance 2/2 abnormal EKG. Patient seen gear keeper Dr. Saez and obtained clearance, now in [...] TESTING. Yes, other than an EKG at [facility] in prep for surgery 07/29/21 AVERAGE BLOOD PRESSURE? Fluctuates, has been told to keep an eye on it. Covid-19 vaccinated in [place]. Will bring card day of surgery. Pt [...] Notified Eliza at Dr Blackmon's office. Contacted Radha Stovall, and left voicemail message for Barbara, relaying this information. Will follow up tomorrow. Left message for Barbara at [facility] this morning, to follow up. Received incoming call from Barbara at [facility]. She indicates that pt will be seen by Dr Saez Wednesday at 2pm. Left Message for Eliza at Dr Blackmon's office to relay these developments. Pt rescheduled for surgery due to unfavorable UA results. Pt indicates that he was re-tested today in [place] and Eliza is going to update him [...] Result documented in this encounter Visit Diagnoses Not [...] Given 08/25/2021 7:25 AM CDT 1,000 mg BUpivacaine-EPINEPHrine PF 0.5% -1:[id number] injection As needed, Starting on Wed08/25/21 at 1034, Until Wed08/25/21 at 1057, Intra-Op Given 08/25/2021 10:34 AM CDT 30 mLs Operative Site ceFAZolin (ANCEF) in NS 1000 mL irrigation solution As needed, Starting on Wed08/25/21 at 0931, Until Wed08/25/21 at 1057, Intra-Op Given 08/25/2021 9:31 AM CDT 1 g cyclobenzaprine (FLEXERIL) tablet 10 mg 10 mg, [...] Given 08/25/2021 11:16 AM CDT 1 mg NON FORMULARY As needed, Starting on Wed08/25/21 at 1017, Until Wed08/25/21 at 1057, Intra-Op Given 08/25/2021 10:17 AM CDT 5 mLs Operative Site ondansetron (ZOFRAN-ODT) disintegrating tablet 8 mg 8 [...] Downtime 08/25/2021 11:27 AM CDT 5 mg vancomycin (VANCOCIN) injection As needed, Starting on Wed08/25/21 at 1031, Until Wed08/25/21 at 1057, Intra-Op Given 08/25/2021 10:31 AM CDT 1,000 mg Operative Site documented in this encounter Active and Recently [...] (COMPLETED) 2 g, Intravenous, at 200 mL/hr, on call pharmacy technician to O.R., 1 dose, First dose on Wed08/25/21 at 0645, Pre-Op 0903 (Given - Provid er: Marileemin Mcadams CRNA)0933 (Infusion Stop Time - Provider: Marilee Mcadams CRNA) DULoxetine (CYMBALTA) capsule 40 mg [...] Pre-Op 0725 (Given - Provid er: Cassidy Atkins, MARK) pantoprazole EC (PROTONIX) tablet 20 mg 20 [...] at 0849, Until Wed08/25/21 at 1725 0853 (JAN Hold - Pro vider: User Epic - Reason: Unreviewed Transfer Orders)1100 (JAN Unhold - Provider: User Epic) BUpivacaine-EPINEPHrine PF 0.5% -1:[id number] injection (CANCELED) As needed, Starting on Wed08/25/21 [...] (Given During D owntime - Provider: Paz Lechuga RN) vancomycin (VANCOCIN) injection (CANCELED) As needed, Starting on Wed08/25/21 at 1031, Until Wed08/25/21 at 1057, Intra-Op 1031 (Given - Provid er: Courtney Blackmon MD - Comment: Sprinkled in operative wound) documented in this encounter Care Teams Intermediate School Teacher Relationship Specialty Start Date End Date Sj Benson MD PCP - General FAMILY PRACTICE 07/29/21 documented as of this encounter
--- OUTSIDE RECORDS SUMMARY | 2024-11-14 16:19 | XMS_ITS | Clinical Summary ---
Author Organization [facility] Address [address] [place] [address] Care Team Providers Care Early Education Teacher Name Role Phone Sj Benson Primary Care Provider Unavailab le Source Comments [facility],non-owned Affiliates and Associated Physician Practices is amultiple site organization consisting of ambulatory clinics and hospital sitesin [place], [place], [place] and [place]. This disclosure is being madepursuant to the Care Everywhere program and may not contain all information available regarding this patient. Last updated 18.[facility] [employer] Social History Tobacco Use Types Packs/Day Years Used Date Smoking Tobacco: Never Assessed Sex and Gender Information Value Date Recorded Sex Assigned at Not on file Gender Identity Not on file Sexual Orientation Not on file Plan of Treatment Health Maintenance Due Date Last Done Comments MEDICARE AWV ? 12 MONTHS 1950 HEPATITIS C SCREENING 09/15/1966 DTAP/TDAP/TD VACCINES (1 - Tdap) 1967 ZOSTER VACCINE (1 of 2) 1998 PNEUMOCOCCAL VACCINE 65+ (1 of 1 - PCV) 2013 Respiratory Syncytial Virus (RSV) Vaccine Pt: or over 60 yrs (1 - 1-dose 75+ series) 2023 DEPRESSION SCREENING 11/22/2023 COVID-19 VACCINE (3 - 2023-2 5 season) 2024 03/10/2021, 02/10/2021 INFLUENZA VACCINE (#1) 2024 HEPATITIS B VACCINE Aged Out No longe r eligible based on patient's age to complete this topic HIB VACCINE Aged Out No longer eligi ble based on patient's age to complete this topic HPV VACCINE Aged Out No longer eligi ble based on patient's age to complete this topic MENINGOCOCCAL VACCINE Aged Out No lemuel riley eligible based on patient's age to complete this topic Care Teams Early Education Teacher Relationship Specialty Start Date End Date Sj Benson Update Information PCP - General 06/24/21
--- OUTSIDE RECORDS SUMMARY | 2024-11-14 16:19 | XMS_ITS | Encounter Summary ---
Author Organization [facility] Address [address] [place] [address] Care Team Providers Care Wardsperson Name Role Phone Sj Benson Primary Care Provider Unavailab le Encounter Details Date Type Department Care Team (Late st Contact Info) Description 04/11/2021 Lab Requisition [facility] [address] [place] [address] Preeti Carreon MD [address] [place], [place] [id number] Illness, unspecified Social History Tobacco Use Types Packs/Day Years Used Date Smoking Tobacco: Never Assessed Sex and Gender Information Value Date Recorded Sex Assigned at Not on file Gender Identity Not on file Sexual Orientation Not on file documented as of this encounter Plan of Treatment Not on file documented as of this encounter Procedures Procedure Name Priority Date/Time Associated Diagnosis Comments PATH CONSULT ON REFERRED CASE Routine 04/09/2021 11:33 AM CDT Illness, unspecified documented in this encounter Results * PATH CONSULT ON REFERRED CASE (04/09/2021 11:33 AM CDT) Final Diagnosis URINE, VOIDED, THIN PREP, CYTOLOGY (OSC:[id number]; 04/09/2021): - Negative for high grade urothelial carcinoma 04/14/2021 8:56 AM CDT [facility] Microscopic Description and Comment Microscopic examination substantiates the final diagnosis. 04/14/2021 8:56 AM CDT [facility] Clinical History Hematuria 04/14/2021 8:56 AM CDT [facility] Materials Received Prepared slide received from [facility] [id number]. All material will be returned. 04/14/2021 8:56 AM [facility] Disclaimer The performance characteristics of all immunohistochemical and indirect immunofluorescence stains (if any) cited in this report were determined by the Histopathology Laboratory of [facility]. Some of these tests were developed by [...] the attending (teaching) pathologist. 04/14/2021 8:56 AM [facility] Case Report Surgical Pathology Report ? Case: [id number] ? Authorizing Provider: ??Preeti Carreon MD ? Collected: ? 04/09/2021 11:33 AM ? Ordering Location: ? [facility] ? Received: ?04/11/2021 11:33 AM ? Pathologist: ? Mike Thomas MD ? Specimen: ?Slide Consultation ? 04/14/2021 8:56 AM CDT [facility] Embedded Images 04/14/2021 8:56 AM CDT [facility] Pathology/Cytolo gy SURGICAL PATHOLOGY CONSULTATION AND REPORT ON REFERRED SLIDES PREPARED ELSEWHERE / Unknown 04/09/2021 11:33 AM CDT 04/11/2021 11:33 AM CDT Preeti Carreon MD LAB - PATHOLOGY/CYTO LOGY ORDERABLES Performing Organization Address City/[facility] Co de Phone Number [facility] [address] [phone] documented in this encounter Visit Diagnoses Diagnosis Illness, unspecified documented in this encounter Care Teams Wardsperson Relationship Specialty Start Date End Date Sj Benson Update Information PCP - General 06/24/21 documented as of this encounter
--- OUTSIDE RECORDS SUMMARY | 2024-11-14 16:19 | XMS_ITS | Encounter Summary ---
Author Organization [facility] Address [address] [place] [address]. [place], [place] [address] [place] [address] Care Team Providers Care Drafter Construction Name Role Phone Sj Benson MD Primary Care Provider [phone] Reason for Visit * Reason Comments Outside Record (SCAN) Encounter Details Date Type Department Care Team ([facility] Contact Info) Description 11/12/2023 Scan [facility] [place] [address] Scanned, [facility] Outside Record (SCAN) [...] on filedocumented in this encounter Care Teams Drafter Construction Relationship Specialty Start Date End Date Sj Benson MD PCP - General FAMILY PRACTICE 07/29/21 documented as of this encounter
--- OUTSIDE RECORDS SUMMARY | 2024-11-14 16:19 | XMS_ITS | Encounter Summary ---
Author Organization [facility] Address [address] [place] [address]. [place] [address] [place] [address] Care Team Providers Care Industrial Chemistry Teacher Name Role Phone Sj Benson MD Primary Care Provider [phone] Encounter Details Date Type Department Care Team (Late st Contact Info) Description 07/29/2021 Orders Only [facility] [place], [place] [id number] Courtney Blackmon MD [address] [facility] [address] [place], [place] [id number] Social History Tobacco Use Types Packs/Day Years [...] of this encounter Results * (ABNORMAL) URINALYSIS (07/29/2021 12:45 PM CDT) SPECIMEN TYPE URINE OMER CATH 07/29/2021 1:07 PM CDT [facility] Comment:CORRECTED ON 07/29 A T 1307: PREVIOUSLY REPORTED URINE CLEAN CATCH COLOR (U) YELLOW 07/29/2021 2:02 PM CDT [facility] TRANSPARENCY TURBID 07/29/2021 2:02 PM T [facility] SPECIFIC GRAVITY (U) 1.024 1.001 - 1.030 07/29/2021 2:02 PM T [facility] U PH 6.5 5.0 - 9.0 07/29/2021 2:02 PM T [facility] LEUKOCYTES (U) 500(A) NEGATIVE 07/29/2021 2:02 PM T [facility] NITRITES 2+(A) NEGATIVE 07/29/2021 2:02 PM T [facility] PROTEIN (U) 50(H) <30 MG/DL 07/29/2021 2:02 PM T [facility] URINE GLUCOSE NORMAL NORMAL MG/DL 07/29/2021 2:02 PM T [facility] KETONES MG/DL (U) NEGATIVE NEGATIVE MG/DL 07/29/2021 2:02 PM [facility] UROBILINOGEN NORMAL NORMAL MG/DL 07/29/2021 2:02 PM T [facility] BILIRUBIN (U) NEGATIVE NEGATIVE MG/DL 07/29/2021 2:02 PM T [facility] BLOOD (U) 1+(A) NEGATIVE 07/29/2021 2:02 PM T [facility] MUCUS FEW /LPF 07/29/2021 2:02 PM T [facility] WBC/HPF 62(H) <6 /HPF 07/29/2021 2:02 PM T [facility] RBC/HPF 29(H) <6 /HPF 07/29/2021 2:02 PM T [facility] BACTERIA (U) RARE(A) NONE /HPF 07/29/2021 2:02 PM CDT [facility] SQUAMOUS EPITHELIALS RARE /HPF 07/29/2021 2:02 PM CDT [facility] URINE SPECIMEN OBTAINED BY CLEAN CATCH PROCEDURE / Unknown 07/29/2021 12:45 PM CDT Courtney Blackmon MD URINE ORDERABLES Edited Resu lt - Final Performing Organization Address City/[facility]/ZIP Co de Phone Number [facility] [address] [place] [address], [place] [phone] * PTT, PARTIAL THROMBOPLASTIN TIME (07/29/2021 12:40 PM CDT) PTT 28.4 25.1 - 36.5 SEC 07/29/2021 2:13 PM CDT [facility] 07/29/2021 12:4 0 PM CDT Courtney Blackmon MD LABORATORY Final Result Performing Organization Address [facility]/[place] Co de Phone Number [facility] [address] [place] [address], [place] [phone] * (ABNORMAL) PROTIME/INR, VENOUS (07/29/2021 12:40 PM CDT) PROTIME 13.1(H) 10.2 - 12.9 SEC 07/29/2021 2:13 PM CDT [facility] INR 1.1 07/29/2021 2:13 PM CDT [facility] Comment: Recommended INR Therapeutic Goals: ??2.0-3.0 Routine Therapy ??2.5-3.5 Mechanical Prosthetic Valves (High Risk) 07/29/2021 12:4 0 PM CDT us Courtney Blackmon MD LABORATORY Final Result [facility] [address] [place] [address], [place] [phone] * (ABNORMAL) CBC W/DIFF AUTOMATED (07/29/2021 12:40 PM CDT) Pathologist [facility] WBC 7.8 4.5 - 11.0 x10'3/uL 07/29/2021 1:48 PM CDT [facility] RBC 4.36(L) 4.70 - 6.10 x10'6/uL 07/29/2021 1:48 PM CDT [facility] HGB 13.7(L) 14.0 - 18.0 G/DL 07/29/2021 1:48 PM CDT [facility] HCT 40.6(L) 43.0 - 54.0 % 07/29/2021 1:48 PM CDT [facility] MCV 93.1 80.0 - 94.0 FL 07/29/2021 1:48 PM CDT [facility] MCH 31.4(H) 27.0 - 31.0 PG 07/29/2021 1:48 PM CDT [facility] MCHC 33.7 32.0 - 36.0 G/DL 07/29/2021 1:48 PM CDT [facility] RDW 12.0 11.5 - 14.5 % 07/29/2021 1:48 PM CDT [facility] PLT 241 130 - 400 x10'3/uL 07/29/2021 1:48 PM CDT [facility] MPV 10.2 9.3 - 12.2 FL 07/29/2021 1:48 PM CDT [facility] DIFFERENTIAL TYPE AUTOMATED DIFFERENTIAL 07/29/2021 1:48 PM CDT [facility] NEUTROPHILS % 59.5 % 07/29/2021 1:48 PM CDT [facility] LYMPHOCYTES % 25.8 % 07/29/2021 1:48 PM CDT [facility] MONOCYTES % 13.0 % 07/29/2021 1:48 PM CDT [facility] EOSINOPHILS 0.8 % 07/29/2021 1:48 PM CDT [facility] BASOPHILS 0.6 % 07/29/2021 1:48 PM CDT [facility] IMMATURE GRANS % 0.3 % 07/29/20 1:48 PM CDT [facility] ABS. NEUTROPHILS TOTAL 4.65 1.80 - 7.70 x10'3/uL 07/29/2021 1:48 PM CDT [facility] ABS. LYMPHOCYTES 2.02 1.00 - 4.80 x10'3/uL 07/29/2021 1:48 PM CDT [facility] ABS. MONOCYTES 1.02(H) 0.30 - 0.82 x10'3/uL 07/29/2021 1:48 PM CDT [facility] ABS. EOSINOPHILS 0.06 0.04 - 0.54 x10'3/uL 07/29/2021 1:48 PM CDT [facility] ABS. BASOPHILS 0.05 0.01 - 0.08 x10'3/uL 07/29/2021 1:48 PM CDT [facility] ABS. IMMATURE GRANULOCYTES 0.02 0.00 - 0.49 x10'3/uL 07/29/2021 1:48 PM CDT [facility] 07/29/2021 12:4 0 PM CDT us Courtney Blackmon MD LABORATORY Final Result [facility] [address] [place] [address], [place] [phone] * (ABNORMAL) BASIC METABOLIC PANEL (07/29/2021 12:40 PM CDT) [facility] GLUCOSE 89 70 - 99 MG/DL 07/29/2021 2:09 PM CDT [facility] BUN 22(H) 7 - 18 MG/DL 07/29/2021 2:09 PM CDT [facility] CREATININE S/P/B 1.45(H) 0.7 - 1.3 MG/DL 07/29/2021 2:09 PM CDT [facility] SODIUM S/P/B 141 136 - 145 MMOL/L 07/29/2021 2:09 PM CDT [facility] POTASSIUM S/P/B 4.0 3.5 - 5.1 MMOL/L 07/29/2021 2:09 PM CDT [facility] CHLORIDE S/P/B 109(H) 100 - 108 MMOL/L 07/29/2021 2:09 PM CDT [facility] CO2 26.4 21 - 32 MMOL/L 07/29/2021 2:09 PM CDT [facility] CALCIUM S/P/B 9.1 8.5 - 10.1 MG/DL 07/29/2021 2:09 PM CDT [facility] ANION GAP 5.6 5 - 15 MMOL/L 07/29/2021 2:09 PM CDT [facility] BUN CREATININE RATIO 15.2 6 - 26 07/29/2021 2:09 PM CDT [facility] EGFR NON-AFR. AMER. 48(L) >90 ML/MIN/1.7 3 M2 07/29/2021 2:09 PM CDT [facility] EGFR AFR. AMER. 55(L) >90 ML/MIN/1.7 3 M2 07/29/2021 2:09 PM CDT [facility] Comment: NOTE: eGFR is not calculated for patients <18 years of age. This is an estimated GFR (CKD EPI) and should not be used for calculating drug doses. 07/29/2021 12:4 0 PM CDT Courtney Blackmon MD LABORATORY Final Result [facility] [address] [place] [address], documented in this encounter Visit Diagnoses Diagnosis Pre-op testing- Primary Preoperative examination, unspecified documented in this encounter Care Teams Industrial Chemistry Teacher Relationship Specialty Start Date End Date Sj Benson MD PCP - General FAMILY PRACTICE 07/29/21 documented as of this encounter
--- OUTSIDE RECORDS SUMMARY | 2024-11-14 16:19 | XMS_ITS | Encounter Summary ---
Author Organization [facility] Address [address] [place] [address]. [place], [place] [id number] [place] [address] Care Team Providers Care Rounding Machine Operator Name Role Phone Sj Benson MD Primary Care Provider [phone] Encounter Details Date Type Department Care Team (Latest Contact Info) Description 07/31/2021 Travel Social History Tobacco Use Types Packs/Day [...] have Coronavirus / COVID-19? No / Unsure 07/31/2021 8:52 AM CDT documented as of this encounter Plan of Treatment Not on file documented as of this encounter Visit Diagnoses Not on filedocumented in this encounter Care Teams Rounding Machine Operator Relationship Specialty Start Date End Date Sj Benson MD PCP - General FAMILY PRACTICE 07/29/21 documented as of this encounter
--- OUTSIDE RECORDS SUMMARY | 2024-11-14 16:19 | XMS_ITS | Encounter Summary ---
Author Organization [facility] Address [address] [place] [address]. [place] [address] [place] [address] Care Team Providers Care Denier Control Operator Name Role Phone Sj Benson MD Primary Care Provider [phone] Encounter Details Date Type Department Care Team (Latest Contact Info) Description 07/29/2021 12:22 PM CDT - 07/29/2021 11:59 PM CDT Hospital Encounter [facility] [place] [address] Courtney Blackmon MD 3 [facility] [address] [place], [place] [address] Discharge Disposition: Home or Self Care (Routine [...] Comments HC URINALYSIS AUTO W/O MICRO Routine 07/29/2021 12:45 PM CDT Pre-op testing PARTIAL THROMBOPLASTIN TIME,PTT Routine 07/29/2021 12:40 PM CDT Pre-op testing PROTHROMBIN TIME, VENOUS Routine 07/29/2021 12:40 PM CDT Pre-op testing BASIC METABOLIC PANEL Routine 07/29/2021 12:40 PM CDT Pre-op testing CBC W/DIFF AUTOMATED Routine 07/29/2021 12:40 PM CDT Pre-op testing documented in this encounter Results * (ABNORMAL) URINALYSIS (07/29/2021 12:45 PM CDT) SPECIMEN TYPE URINE OMER CATH 07/29/2021 1:[address] [facility] Comment:CORRECTED ON 07/29 A T 1307: PREVIOUSLY REPORTED URINE CLEAN CATCH COLOR (U) YELLOW 07/29/2021 2:[address] [facility] TRANSPARENCY TURBID 07/29/2021 2:[address] [facility] SPECIFIC GRAVITY (U) 1.024 1.001 - 1.030 07/29/2021 2:[address] [facility] U PH 6.5 5.0 - 9.0 07/29/2021 2:[address] [facility] LEUKOCYTES (U) 500(A) NEGATIVE 07/29/2021 2:[address] [facility] NITRITES 2+(A) NEGATIVE 07/29/2021 2:[address] [facility] PROTEIN (U) 50(H) <30 MG/DL 07/29/2021 2:[address] [facility] URINE GLUCOSE NORMAL NORMAL MG/DL 07/29/2021 2:[address] [facility] KETONES MG/DL (U) NEGATIVE NEGATIVE MG/DL 07/29/2021 2:[address] [facility] UROBILINOGEN NORMAL NORMAL MG/DL 07/29/2021 2:[address] [facility] BILIRUBIN (U) NEGATIVE NEGATIVE MG/DL 07/29/2021 2:[address] [facility] BLOOD (U) 1+(A) NEGATIVE 07/29/2021 2:[address] [facility] MUCUS FEW /LPF 07/29/2021 2:[address] [facility] WBC/HPF 62(H) <6 /HPF 07/29/2021 2:[address] [facility] RBC/HPF 29(H) <6 /HPF 07/29/2021 2:[address] [facility] BACTERIA (U) RARE(A) NONE /HPF 07/29/2021 2:[address] [facility] SQUAMOUS EPITHELIALS RARE /HPF 07/29/2021 2:[address] [facility] URINE SPECIMEN OBTAINED BY CLEAN CATCH PROCEDURE / Unknown 07/29/2021 12:45 PM CDT Courtney Blackmon MD URINE ORDERABLES Edited Resu lt - Final Performing Organization Address City/[facility]/ZIP Co de Phone Number [facility] [address] [place] [address], [place] [phone] * PTT, PARTIAL THROMBOPLASTIN TIME (07/29/2021 12:40 PM CDT) PTT 28.4 25.1 - 36.5 SEC 07/29/2021 2:[address] [facility] 07/29/2021 12:4 0 PM CDT Courtney Blackmon MD LABORATORY Final Result [facility] [address] [place] [address], [place] [phone] * (ABNORMAL) PROTIME/INR, VENOUS (07/29/2021 12:40 PM CDT) PROTIME 13.1(H) 10.2 - 12.9 SEC 07/29/2021 2:[address] [facility] INR 1.1 07/29/2021 2:[address] [facility] Comment: Recommended INR Therapeutic Goals: ??2.0-3.0 Routine Therapy ??2.5-3.5 Mechanical Prosthetic Valves (High Risk) 07/29/2021 12:4 0 PM CDT Courtney Blackmon MD LABORATORY Final Result [facility] [address] [place] [address], * (ABNORMAL) CBC W/DIFF AUTOMATED (07/29/2021 12:40 PM CDT) WBC 7.8 4.5 - 11.0 x10'3/uL 07/29/2021 1:[address] [facility] RBC 4.36(L) 4.70 - 6.10 x10'6/uL 07/29/2021 1:[address] [facility] HGB 13.7(L) 14.0 - 18.0 G/DL 07/29/2021 1:[address] [facility] HCT 40.6(L) 43.0 - 54.0 % 07/29/2021 1:[address] [facility] MCV 93.1 80.0 - 94.0 FL 07/29/2021 1:[address] [facility] MCH 31.4(H) 27.0 - 31.0 PG 07/29/2021 1:[address] [facility] MCHC 33.7 32.0 - 36.0 G/DL 07/29/2021 1:[address] [facility] RDW 12.0 11.5 - 14.5 % 07/29/2021 1:[address] [facility] PLT 241 130 - 400 x10'3/uL 07/29/2021 1:[address] [facility] MPV 10.2 9.3 - 12.2 FL 07/29/2021 1:[address] [facility] DIFFERENTIAL TYPE AUTOMATED DIFFERENTIAL 07/29/2021 1:[address] [facility] NEUTROPHILS % 59.5 % 07/29/2021 1:[address] [facility] LYMPHOCYTES % 25.8 % 07/29/2021 1:[address] [facility] MONOCYTES % 13.0 % 07/29/2021 1:[address] [facility] EOSINOPHILS 0.8 % 07/29/2021 1:[address] [facility] BASOPHILS 0.6 % 07/29/2021 1:[address] [facility] IMMATURE GRANS % 0.3 % 07/29/20 1:[address] [facility] ABS. NEUTROPHILS TOTAL 4.65 1.80 - 7.70 x10'3/uL 07/29/2021 1:[address] [facility] ABS. LYMPHOCYTES 2.02 1.00 - 4.80 x10'3/uL 07/29/2021 1:[address] [facility] ABS. MONOCYTES 1.02(H) 0.30 - 0.82 x10'3/uL 07/29/2021 1:[address] [facility] ABS. EOSINOPHILS 0.06 0.04 - 0.54 x10'3/uL 07/29/2021 1:[address] [facility] ABS. BASOPHILS 0.05 0.01 - 0.08 x10'3/uL 07/29/2021 1:[address] [facility] ABS. IMMATURE GRANULOCYTES 0.02 0.00 - 0.49 x10'3/uL 07/29/2021 1:[address] [facility] 07/29/2021 12:4 0 PM CDT us Courtney Blackmon MD LABORATORY Final Result [facility] [address] [place] [address], [place] [phone] * (ABNORMAL) BASIC METABOLIC PANEL (07/29/2021 12:40 PM CDT) GLUCOSE 89 70 - 99 MG/DL 07/29/2021 2:[address] [facility] BUN 22(H) 7 - 18 MG/DL 07/29/2021 2:[address] [facility] CREATININE S/P/B 1.45(H) 0.7 - 1.3 MG/DL 07/29/2021 2:[address] [facility] SODIUM S/P/B 141 136 - 145 MMOL/L 07/29/2021 2:[address] [facility] POTASSIUM S/P/B 4.0 3.5 - 5.1 MMOL/L 07/29/2021 2:[address] [facility] CHLORIDE S/P/B 109(H) 100 - 108 MMOL/L 07/29/2021 2:[address] [facility] CO2 26.4 21 - 32 MMOL/L 07/29/2021 2:[address] [facility] CALCIUM S/P/B 9.1 8.5 - 10.1 MG/DL 07/29/2021 2:[address] [facility] ANION GAP 5.6 5 - 15 MMOL/L 07/29/2021 2:[address] [facility] BUN CREATININE RATIO 15.2 6 - 26 07/29/2021 2:[address] [facility] EGFR NON-AFR. AMER. 48(L) >90 ML/MIN/1.7 3 M2 07/29/2021 2:[address] [facility] EGFR AFR. AMER. 55(L) >90 ML/MIN/1.7 3 M2 07/29/2021 2:[address] [facility] Comment: NOTE: eGFR is not calculated for patients <18 years of age. This is an estimated GFR (CKD EPI) and should not be used for calculating drug doses. 07/29/2021 12:4 0 PM CDT us Courtney Blackmon MD LABORATORY Final Result [facility] [address] [place] [address], documented in this encounter Visit Diagnoses Diagnosis Pre-op testing Preoperative examination, unspecified documented in this encounter Care Teams Denier Control Operator Relationship Specialty Start Date End Date Sj Benson MD PCP - General FAMILY PRACTICE 07/29/21 documented as of this encounter
--- OUTSIDE RECORDS SUMMARY | 2024-11-14 16:19 | XMS_ITS | Encounter Summary ---
Author Organization [facility] Address [address] [place] [address]. [place], [place] [id number] [place] [address] Care Team Providers Care Bottle Packing Machine Cleaner Name Role Phone Sj Benson MD Primary Care Provider Encounter Details Date Type Department Care Team (Latest Contact Info) Description 03/27/2022 Travel Social History Tobacco Use Types Packs/Day [...] on filedocumented in this encounter Care Teams Bottle Packing Machine Cleaner Relationship Specialty Start Date End Date Sj Benson MD PCP - General FAMILY PRACTICE 07/29/21 documented as of this encounter
--- OUTSIDE RECORDS SUMMARY | 2024-11-14 16:21 | XMS_ITS | CONTINUITY OF CARE DOCUMENT ---
Author Name ayush mamtanithin Address Unknown Organization [facility] Address [address] [place] [address] [address] [place] [address] Phone [phone] Care Team Providers Care Judicial Assistant Name Role Phone Junior STOKES, Jarret Unavailable BLAKE MICHELLE MD Unavailable BLAKE MICHELLE MD Unavailable [phone] INSURANCE PROVIDERS Payer name Policy type / Coverage type [place] red green party ID [facility] [id number] [place] Medicare [id number]
--- OUTSIDE RECORDS SUMMARY | 2024-11-14 16:22 | XMS_ITS | Clinical Summary ---
Author Organization [facility] Address Formerly [facility] [place] [address] Care Team Providers Care Rock Wool Insulator Name Role Phone Sj Benson MD Primary Care Provider [phone] Allergies Active Allergy Reactions Criticality Noted Date Comments Sulfa Unknown Low 07/26/2024 Childhood reaction - unknown what reaction occurred Medications finasteride (PROSCAR) 5 mg tabletIndicatio ns:benign prostatic hyperplasia with lower urinary tract sx Take 1 tablet (5 mg total) by mouth every morning 4 Active tamsulosin (FLOMAX) 0.4 mg extended release capsuleIndicati ons:benign prostatic hyperplasia with lower urinary tract sx Take 1 capsule (0.4 mg total) by mouth nightly [address] (CYMBALTA) 30 mg capsuleIndicati ons:Neuropathic Pain Take 1 capsule (30 mg total) by mouth 2 (two) times a day 4 Active baclofen (LIORESAL) 10 mg tabletIndicatio ns:Muscle Spasticity of Spinal Origin Take 1 tablet (10 mg total) by mouth 2 (two) times a day 4 Active Saccharomyces boulardii (Florastor) 250 mg capsuleIndicati ons:gut health Take 1 capsule (250 mg total) by mouth every morning Active apixaban (ELIQUIS) 5 mg tabletIndicatio ns:Venous Thrombosis Take 1 tablet (5 mg total) by mouth every 12 (twelve) hours 4 Active bisacodyL (DULCOLAX) 10 mg suppositoryIndi cations:constip ation Insert 1 suppository (10 mg total) into the rectum daily as needed for constipation (If no BM 24 hours after miralax) 0 4 Active docusate sodium (COLACE) 100 mg capsuleIndicati ons:constipatio n,Stool Softener Take 1 capsule (100 mg total) by mouth 2 (two) times a day 4 Active polyethylene glycol (MIRALAX) 17 gram packetIndicatio ns:constipation Take 1 packet (17 g total) by mouth daily as needed for constipation (1st line) 4 Active senna (SENOKOT) 8.6 mg tabletIndicatio ns:constipation Take 1 tablet by mouth 2 (two) times a day 4 025 Active oxyCODONE (ROXICODONE) 5 mg immediate release tabletIndicatio ns:Pain Take 1 tablet (5 mg total) by mouth every 4 (four) hours as needed for pain 42 tablet 4 Active acetaminophen 500 mg capsule Take 2 capsules (1,000 mg total) by mouth every 6 (six) hours as needed for pain 4 024 Active Problems Problem Noted Date Diagnosed Date Thoracic myelopathy 07/27/2024 Primary localized osteoarthritis of pelvic regio n and thigh 07/12/2024 Left upper quadrant pain 05/16/2024 Abdominal pain 04/28/2024 Open wound of lower leg 04/10/2024 Irritable bowel syndrome 05/17/2023 Sinusitis 10/26/2022 Hyperlipidemia 11/03/2021 Deep vein thrombosis (DVT) of upper extremity (C MS/HCC) 09/29/2021 Essential (primary) hypertension 08/04/2021 Overview (07/12/2024): Last Assessment & Plan: His blood pressure in the office is elevated today. I have asked him to continue to monitor his blood pressure. Abnormal EKG 07/31/2021 Overview (07/12/2024): Last Assessment & Plan: I have reviewed both of the EKG from August 01, 2021 and August 04, 2021. There is no significant change in either 1 is significantly abnormal. Benign prostatic hyperplasia without urinary obs truction 10/21/2020 Gastroesophageal reflux disease without esophagi tis 10/21/2020 Elevated blood-pressure read ing without diagnosis of hypertension 10/02/2019 Obesity 03/15/2019 Osteoarthritis of hip 11/15/2017 Lumbar spondylosis 11/15/2017 Pain of right hip joint 11/01/2017 Neuropathy 11/01/2017 Prediabetes 08/10/2017 Stage 3 chronic kidney disease 08/10/2017 Lumbago 06/04/2009 Numbness 06/04/2009 Encounters Date Type Department Care Team Description 11/07/2024 Telephone [facility] [address] [facility] [address] [place] [address] [place] [address] James Robles MD 11/06/2024 11:07 AM HOGSHEAD OPENER - 11/06/2024 11:59 PM HOGSHEAD OPENER Hospital Encounter [facility] Emergency, Room R Discharge Disposition: Discharge to home or self care 10/13/2024 8:10 AM HOGSHEAD OPENER Ancillary Procedure [facility] IP [address] [facility] [address] [place] [address] 10/09/2024 8:55 AM HOGSHEAD OPENER Ancillary Procedure [facility] IP [address] [facility] [address] [place] [address] 10/09/2024 Orders Only [facility] [address] [facility] [address] [place] [address] Claudia Ryan NP Hospital discharge follow-up (Primary Dx) 10/09/2024 Telephone [facility] [address] [facility] [address] 8[address] [place] [address] [place] [address] Stephany Carver 10/02/2024 7:30 AM HOGSHEAD OPENER - 10/02/2024 3:05 PM HOGSHEAD OPENER Surgery [facility] Operating Room [address] [place] [address] James Robles MD POSTERIOR LUMBAR/THORACIC WITH INSTRUMENTATION 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 10/02/2024 7:29 AM HOGSHEAD OPENER Anesthesia Event [facility] Operating Room [address] [place] [address] Marimar Carr MD PhD Sully Archer NP 10/02/2024 5:29 AM HOGSHEAD OPENER - 10/14/2024 2:41 PM HOGSHEAD OPENER Hospital Encounter [facility] 1 [place] [address] James Robles MD Thoracic myelopathy Discharge Disposition: Discharge to an Rehab facility 10/02/2024 Orders Only [facility] Operating Room [address] [place] [address] James Robles MD 09/13/2024 10:30 AM CDT Pre-Admission Testing [facility] Pre Anesthesia Testing [address] [place] [address] Preoperative testing (Primary Dx) 09/13/2024 10:05 AM CDT Lab [facility] [address] [place] [address] [address] [place] [address] Preoperative testing; Thoracic myelopathy 08/16/2024 Telephone [facility] [address] [facility] [address] [place] [address] James Robles MD from Last 3 Months Immunizations Name Administration Dates Next Due Moderna SARS-CoV-2 Monovalent Vaccination (12+ Y RS) 03/10/2021,02/10/2021 Tdap 08/10/2017,03/04/2017 ZOSTER Recombinant 11/10/2022,07/10/2022 Surgical History Surgery Date Site/Laterality Comments TUMOR REMOVAL 11/22/2020 - 11/21/2021 bladder tumor excision SPINAL CORD STIMULATOR IMPLANT 11/22/2023 - 11/21/2024 LUMBAR SPINE SURGERY 11/22/2020 - 11/21/2021 L4/L5 SPINE SURGERY 11/22/2010 - 11/21/2011 Medical History Medical History Date Comments CKD (chronic kidney disease) stage 3, GFR 30-59 ml/min (HCC) BPH (benign prostatic hyperplasia) Obesity Renal cyst Back pain Social History Tobacco Use Types Packs/Day Years Used Date Smoking Tobacco: Never Passive Smoke Exposure: Never Smokeless Tobacco: Never Tobacco Cessation:Counseling Given: Not Answered AUDIT-C Answer Date Recorded Q1: How often do you have a drink containing alcohol? Never 10/02/2024 Q2: How many drinks containi ng alcohol do you have on a typical day when you are drinking? Patient does not drink Q3: How often do you have si x or more drinks on one occasion? Never 10/02/2024 Personal Safety Answer Date Recorded Have you ever been in or are you currently in a harmful physical or emotional relationship or is someone making you feel afraid or unsafe? Denies 10/02/2024 Sex and Gender Information Value Date Recorded Sex Assigned at Not on file Legal Sex Male 12:23 PM HOGSHEAD OPENER Gender Identity Not on file Sexual Orientation Not on file Obstetrics History Last Filed Vital Signs Vital Sign Reading Time Taken Comments Blood Pressure 109/63 10/14/2024 12:17 PM HOGSHEAD OPENER Pulse 60 10/14/2024 12:17 PM HOGSHEAD OPENER Temperature 36.6 ??C (97.9 ??F) 10/14/2024 1 2:17 PM HOGSHEAD OPENER Respiratory Rate 16 10/14/2024 12:1 7 PM HOGSHEAD OPENER Oxygen Saturation 97% 10/14/2024 12: 17 PM HOGSHEAD OPENER Inhaled Oxygen Concentration - - Weight 98.4 kg (216 lb 14.9 oz) 10/12/2024 2:30 PM HOGSHEAD OPENER Height 182.9 cm (6') 10/03/2024 2:04 PM HOGSHEAD OPENER Body Mass Index 29.42 10/03/2024 2:04 PM HOGSHEAD OPENER Plan of Treatment Health Maintenance Due Date Last Done Comments Depression Screening 1950 Hepatitis C Screening 1950 Hepatitis B Screening 1966 Pneumococcal vaccine 65+ (1 of 1 - PCV) 2013 Well Visit 65+ 2013 Covid-19 Vaccine (3 - season) 2024, 02/10/2021 Influenza Vaccine (#1) 2024 Fall Risk Assessment 10/14/2025 10/14/2024 DTaP/Tdap/Td Vaccine (3 - Td or Tdap) 08/10/2027, 03/04/2017 Zoster Vaccine Completed 11/10/2022, 07/10/2022 Procedures Procedure Name Priority Date/Time Associated Diagnosis Comments HEPATIC FUNCTION PANEL Routine 8:12 PM HOGSHEAD OPENER EGFR Routine 10/13/2024 8:12 PM HOGSHEAD OPENER PROTIME-INR STAT 10/13/2024 8:12 PM HOGSHEAD OPENER CBC WITHOUT DIFFERENTIAL Routine 10/13/2024 8:12 PM HOGSHEAD OPENER BASIC METABOLIC PANEL Routine 10/13/2024 8:12 PM HOGSHEAD OPENER PEP THERAPY Routine 10/13/2024 12:00 PM HOGSHEAD OPENER US VEIN DUPLEX LOWER EXTREMITY BILATERAL COMPLETE IP Routine 10/13/2024 9:43 AM HOGSHEAD OPENER APTT STAT 10/13/2024 6:24 AM HOGSHEAD OPENER PEP THERAPY Routine 10/13/2024 6:01 AM HOGSHEAD OPENER EGFR Routine 10/12/2024 9:40 PM HOGSHEAD OPENER APTT Routine 10/12/2024 9:40 PM HOGSHEAD OPENER CBC WITHOUT DIFFERENTIAL Routine 10/12/2024 9:40 PM HOGSHEAD OPENER BASIC METABOLIC PANEL Routine 10/12/2024 9:40 PM HOGSHEAD OPENER PEP THERAPY Routine 10/12/2024 6:00 PM HOGSHEAD OPENER PEP THERAPY Routine 10/12/2024 12:00 PM HOGSHEAD OPENER APTT STAT 10/12/2024 6:21 AM HOGSHEAD OPENER PEP THERAPY Routine 10/12/2024 6:01 AM HOGSHEAD OPENER APTT STAT 10/12/2024 12:54 AM HOGSHEAD OPENER EGFR Routine 10/11/2024 9:52 PM HOGSHEAD OPENER CBC WITHOUT DIFFERENTIAL Routine 10/11/2024 9:52 PM HOGSHEAD OPENER BASIC METABOLIC PANEL Routine 10/11/2024 9:52 PM HOGSHEAD OPENER PEP THERAPY Routine 10/11/2024 6:00 PM HOGSHEAD OPENER APTT STAT 10/11/2024 5:30 PM HOGSHEAD OPENER PEP THERAPY Routine 10/11/2024 12:00 PM HOGSHEAD OPENER PEP THERAPY Routine 10/11/2024 6:01 AM HOGSHEAD OPENER PEP THERAPY Routine 10/11/2024 12:00 AM HOGSHEAD OPENER EGFR Routine 10/10/2024 8:04 PM HOGSHEAD OPENER APTT STAT 10/10/2024 8:04 PM HOGSHEAD OPENER PROTIME-INR STAT 10/10/2024 8:04 PM HOGSHEAD OPENER APTT STAT 10/10/2024 8:04 PM HOGSHEAD OPENER CBC WITHOUT DIFFERENTIAL Routine 10/10/2024 8:04 PM HOGSHEAD OPENER BASIC METABOLIC PANEL Routine 10/10/2024 8:04 PM HOGSHEAD OPENER PEP THERAPY Routine 10/10/2024 12:00 PM HOGSHEAD OPENER CBC WITHOUT DIFFERENTIAL STAT 10/10/2024 11:51 AM HOGSHEAD OPENER APTT STAT 10/10/2024 11:36 AM HOGSHEAD OPENER PROTIME-INR STAT 10/10/2024 11:36 AM HOGSHEAD OPENER PEP THERAPY Routine 10/10/2024 6:01 AM HOGSHEAD OPENER EGFR Routine 10/10/2024 3:19 AM HOGSHEAD OPENER CBC WITHOUT DIFFERENTIAL Routine 10/10/2024 3:19 AM HOGSHEAD OPENER BASIC METABOLIC PANEL Routine 10/10/2024 3:19 AM HOGSHEAD OPENER PEP THERAPY Routine 10/10/2024 12:00 AM HOGSHEAD OPENER POCT GLUCOSE DEVICE Routine 10/09/2024 8 :41 PM HOGSHEAD OPENER PEP THERAPY Routine 10/09/2024 6:00 PM HOGSHEAD OPENER US VEIN DUPLEX LOWER EXTREMITY BILATERAL COMPLETE ED Urgent/IP Urgent 10/09/2024 10:08 AM HOGSHEAD OPENER XR CHEST 1 VIEW IP Routine 10/09/2024 7:55 AM HOGSHEAD OPENER PEP THERAPY Routine 10/09/2024 6:01 AM HOGSHEAD OPENER PEP THERAPY Routine 10/09/2024 12:00 AM HOGSHEAD OPENER EGFR Timed 10/08/2024 10:15 PM HOGSHEAD OPENER PHOSPHORUS Timed 10/08/2024 10:15 PM HOGSHEAD OPENER MAGNESIUM Timed 10/08/2024 10:15 PM HOGSHEAD OPENER COMPREHENSIVE METABOLIC PANEL Timed 10/08/2024 10:15 PM HOGSHEAD OPENER CBC WITHOUT DIFFERENTIAL Routine 10/08/2024 10:15 PM HOGSHEAD OPENER PEP THERAPY Routine 10/08/2024 6:00 PM HOGSHEAD OPENER PEP THERAPY Routine 10/08/2024 12:00 PM HOGSHEAD OPENER TROPONIN I HIGH-SENSITIVITY STAT 10/08/2024 11:36 AM HOGSHEAD OPENER LACTATE Timed 10/08/2024 8:38 AM HOGSHEAD OPENER PEP THERAPY Routine 10/08/2024 6:00 AM HOGSHEAD OPENER EGFR Routine 10/07/2024 10:19 PM HOGSHEAD OPENER CBC WITHOUT DIFFERENTIAL Routine 10/07/2024 10:19 PM HOGSHEAD OPENER BASIC METABOLIC PANEL Routine 10/07/2024 10:19 PM HOGSHEAD OPENER LACTATE, WHOLE BLOOD Timed 10/07/2024 9:09 AM HOGSHEAD OPENER URINALYSIS, MICROSCOPIC ONLY Routine 10/07/2024 5:37 AM HOGSHEAD OPENER URINALYSIS AND REFLEX TO MICROSCOPIC AND CULTURE Routine 10/07/2024 5:37 AM HOGSHEAD OPENER BLOOD CULTURE STAT 10/07/2024 5:37 AM HOGSHEAD OPENER BLOOD CULTURE STAT 10/07/2024 5:37 AM HOGSHEAD OPENER XR CHEST 1 VIEW IP Routine 10/07/2024 5:18 AM HOGSHEAD OPENER PEP THERAPY Routine 10/07/2024 12:00 AM HOGSHEAD OPENER LACTATE, WHOLE BLOOD Routine 10/06/2024 9:30 PM HOGSHEAD OPENER EGFR Routine 10/06/2024 9:16 PM HOGSHEAD OPENER CBC WITHOUT DIFFERENTIAL Routine 10/06/2024 9:16 PM HOGSHEAD OPENER BASIC METABOLIC PANEL Routine 10/06/2024 9:16 PM HOGSHEAD OPENER PEP THERAPY Routine 10/06/2024 6:00 PM HOGSHEAD OPENER PEP THERAPY Routine 10/06/2024 12:00 PM HOGSHEAD OPENER PEP THERAPY Routine 10/06/2024 6:01 AM HOGSHEAD OPENER EGFR Routine 10/05/2024 10:43 PM HOGSHEAD OPENER CBC WITHOUT DIFFERENTIAL Routine 10/05/2024 10:43 PM HOGSHEAD OPENER LACTATE, WHOLE BLOOD Routine 10/05/2024 10:43 PM HOGSHEAD OPENER BASIC METABOLIC PANEL Routine 10/05/2024 10:43 PM HOGSHEAD OPENER PEP THERAPY Routine 10/05/2024 6:12 PM HOGSHEAD OPENER PEP THERAPY Routine 10/05/2024 6:12 PM HOGSHEAD OPENER EGFR Routine 10/04/2024 8:49 PM HOGSHEAD OPENER DIFFERENTIAL AUTO Routine 10/04/2024 8:4 9 PM HOGSHEAD OPENER LACTATE, WHOLE BLOOD Routine 10/04/2024 8:49 PM HOGSHEAD OPENER CALCIUM,IONIZED, WHOLE BLOOD Routine 10/04/2024 8:49 PM HOGSHEAD OPENER TROPONIN I HIGH-SENSITIVITY Routine 10/04/2024 8:49 PM HOGSHEAD OPENER CBC WITH AUTO DIFFERENTIAL Routine 10/04/2024 8:49 PM HOGSHEAD OPENER BASIC METABOLIC PANEL Routine 10/04/2024 8:49 PM HOGSHEAD OPENER URINALYSIS, MICROSCOPIC ONLY STAT 10/04/2024 1:30 PM HOGSHEAD OPENER URINALYSIS AND REFLEX TO MICROSCOPIC AND CULTURE STAT 10/04/2024 1:30 PM HOGSHEAD OPENER LACTATE, WHOLE BLOOD STAT 10/04/2024 12:12 PM HOGSHEAD OPENER TROPONIN I HIGH-SENSITIVITY 2-HOUR Timed 10/04/2024 12:06 PM HOGSHEAD OPENER CRITICAL RESULT CALLBACK CHEMISTRY STAT 10/04/2024 9:06 AM HOGSHEAD OPENER TROPONIN I HIGH-SENSITIVITY SERIES (BASELINE, 2HR, 4HR, 6HR) Routine 10/04/2024 9:06 AM HOGSHEAD OPENER LACTATE STAT 10/04/2024 9:06 AM HOGSHEAD OPENER INFLUENZA A/B, RSV, AND COVID-19 PCR Routine 10/04/2024 9:06 AM HOGSHEAD OPENER EGFR Routine 10/03/2024 10:36 PM HOGSHEAD OPENER BASIC METABOLIC PANEL Routine 10/03/2024 10:36 PM HOGSHEAD OPENER DIFFERENTIAL AUTO Routine 10/03/2024 8:3 0 PM HOGSHEAD OPENER CBC WITH AUTO DIFFERENTIAL Routine 10/03/2024 8:30 PM HOGSHEAD OPENER EGFR STAT 10/03/2024 8:25 PM HOGSHEAD OPENER BASIC METABOLIC PANEL STAT 10/03/2024 8:25 PM HOGSHEAD OPENER ECG 12-LEAD Routine 10/03/2024 2:19 PM HOGSHEAD OPENER POCT GLUCOSE DEVICE Routine 10/03/2024 2 :07 PM HOGSHEAD OPENER EGFR Routine 10/03/2024 4:58 AM HOGSHEAD OPENER DIFFERENTIAL AUTO Routine 10/03/2024 4:5 8 AM HOGSHEAD OPENER BASIC METABOLIC PANEL Routine 10/03/2024 4:58 AM HOGSHEAD OPENER CBC WITH AUTO DIFFERENTIAL Routine 10/03/2024 4:58 AM HOGSHEAD OPENER XR CHEST 1 VIEW IP Routine 10/02/2024 9:08 PM HOGSHEAD OPENER EGFR STAT 10/02/2024 4:01 PM HOGSHEAD OPENER DIFFERENTIAL AUTO STAT 10/02/2024 4:0 1 PM HOGSHEAD OPENER PROTIME-INR STAT 10/02/2024 4:01 PM HOGSHEAD OPENER APTT STAT 10/02/2024 4:01 PM HOGSHEAD OPENER CBC WITH AUTO DIFFERENTIAL STAT 10/02/2024 4:01 PM HOGSHEAD OPENER PHOSPHORUS STAT 10/02/2024 4:01 PM HOGSHEAD OPENER MAGNESIUM STAT 10/02/2024 4:01 PM HOGSHEAD OPENER COMPREHENSIVE METABOLIC PANEL STAT 10/02/2024 4:01 PM HOGSHEAD OPENER POC BLOOD GAS AND CHEMISTRIES, ARTERIAL Routine 10/02/2024 2:30 PM HOGSHEAD OPENER FL FLUOROSCOPY < 1 HOUR IP Routine 10/02/2024 2:00 PM HOGSHEAD OPENER SURGICAL PATHOLOGY Routine 10/02/2024 12 :15 PM HOGSHEAD OPENER POC BLOOD GAS AND CHEMISTRIES, ARTERIAL Routine 10/02/2024 10:43 AM HOGSHEAD OPENER ANESTHESIA ARTERIAL LINE PLACEMENT Routine 10/02/2024 8:32 AM HOGSHEAD OPENER ANESTHESIA INTUBATION Routine 10/02/2024 8:31 AM HOGSHEAD OPENER SPINAL CORD MONITORING 7:29 AM HOGSHEAD OPENER Thoracic myelopathy Case Notes 09/29@0915-Per Celine via email add Dr. David HEBERT LAMINECTOMY THORACIC DECOMPRESSION 10/02/2024 7:29 AM HOGSHEAD OPENER Thoracic myelopathy Case Notes 09/29@0915-Per Celine via email add Dr. David HEBERT FUSION SPINAL - POSTERIOR LUMBAR/THORACIC WITH INSTRUMENTATION 10/02/2024 7:29 AM HOGSHEAD OPENER Thoracic myelopathy Case Notes 09/[email or web address]-Per Celine via email add Dr. David HEBERT TYPE AND SCREEN STAT 10/02/2024 6:18 AM HOGSHEAD OPENER EGFR Routine 09/13/2024 11:37 AM CDT Thoracic myelopathy URINALYSIS, MICROSCOPIC ONLY Routine 09/13/2024 11:37 AM CDT Thoracic myelopathy DIFFERENTIAL AUTO Routine 09/13/2024 11: 37 AM CDT Thoracic myelopathy BASIC METABOLIC PANEL Routine 09/13/2024 11:37 AM CDT Thoracic myelopathy VITAMIN D 25 HYDROXY Routine 09/13/2024 11:37 AM CDT Thoracic myelopathy CBC WITH AUTO DIFFERENTIAL Routine 09/13/2024 11:37 AM CDT Thoracic myelopathy PROTIME-INR Routine 09/13/2024 11:37 AM CDT Thoracic myelopathy APTT Routine 09/13/2024 11:37 AM CDT Thoracic myelopathy TYPE AND SCREEN 14 DAY Routine 11:37 AM CDT Preoperative testing CPAP APTT ALGORITHM Routine 09/13/2024 1 1:37 AM CDT Preoperative testing URINALYSIS AND REFLEX TO MICROSCOPIC AND CULTURE Routine 09/13/2024 11:37 AM CDT Thoracic myelopathy from Last 3 Months Results * eGFR (10/13/2024 8:12 PM HOGSHEAD OPENER) eGFR 60 >=60 mL/min/1. 73 m2 Comment: Interpretive Data Reference Interval Normal ?>/= 90 mL/min/1.73m2 Mildly decreased* ? 60 - 89 mL/min/1.73m2 Mildly to moderately decreased ?45 - 59 mL/min/1.73m2 Moderately to severely decreased ??30 - 44 mL/min/1.73m2 Severely decreased ?15 - 29 mL/min/1.73m2 Kidney Failure ?< 15 ??mL/min/1.73m2 *Relative to young adult level Estimated glomerular filtration rate is determined by the 2020 CKD-EPI equation recommended by the National Kidney Foundation (A Unifying Approach to GFR Estimation: Recommendations of the NKF-ASK Task Force on Reassessing the Inclusion of Race in Diagnosing Kidney Disease, JASN 2020). The CKD-EPI equation should not be used for patients with unstable renal function and has not been validated in children and those over 70. Current interpretive data was last reviewed 2021. Blood 10/13/2024 8:12 PM HOGSHEAD OPENER 10/13/2024 8:37 PM HOGSHEAD OPENER us James Robles MD LAB BLOOD ORDERABLES Final Resu lt [facility] Department [place] [address] * Protime-INR (10/13/2024 8:12 PM HOGSHEAD OPENER) Pathologist [facility] PT 11.5 9.7 - 13.0 sec INR 1.06 0.90 - 1.20 [facility] Comment: Interpretive data Oral anticoagulant therapeutic ranges: Venous thromboembolism prophylaxis or treatment: 2.0-3.0 CARDIOLOGY Standard range: 2.0-3.0 High-intensity range: 2.5-3.5 Refer to indication-specific guidelines for appropriate target ranges for prosthetic heart valve replacement. Current interpretive data was last revised on 2019. Blood 10/13/2024 8:12 PM HOGSHEAD OPENER 10/13/2024 8:32 PM HOGSHEAD OPENER Narrative [facility] - 10/13/2024 8:38 PM HOGSHEAD OPENER Baseline prior to apixaban initiation. Meghan Whyte SHRIMP PEELING MACHINE OPERATOR LAB BLOOD ORDERABLES [facility] al Result [facility] [address] [facility] Department [place] [address] * (ABNORMAL) CBC without differential (10/13/2024 8:12 PM HOGSHEAD OPENER) Pathologist [facility] WBC 17.1(H) 3.8 - 9.9 K/cumm Hgb 12.1(L) 13.0 - 17.5 g/dL [facility] Hct 37.0(L) 38.9 - 50.3 % [facility] Plt 214 150 - 400 K/cumm [facility] MPV 10.1 9.1 - 12.3 fL [facility] RBC 3.76(L) 4.30 - 5.80 M/cumm [facility] MCV 98.4(H) 81.3 - 96.4 fL [facility] MCH 32.2 27.1 - 33.3 pg [facility] MCHC 32.7 32.3 - 35.7 g/dL [facility] RDW CV 14.6 11.1 - 14.9 % [facility] RDW SD 52.2(H) 35.7 - 48.1 fL [facility] NRBC abs 0.00 0.00 - 0.01 K/cumm [facility] Blood 10/13/2024 8:12 PM HOGSHEAD OPENER 10/13/2024 8:26 PM HOGSHEAD OPENER Maria Isabel Unger NP LAB BLOOD ORDERABLES Final Result Performing Organization Address [facility] de Phone Number [facility] [place] [address] * (ABNORMAL) Hepatic function panel (10/13/2024 8:12 PM HOGSHEAD OPENER) Bilirubin, total 0.2 0.1 - 1.2 mg/dL Bilirubin, direct <0.2 0.1 - 0.3 mg/dL [facility] Protein, pl 5.8(L) 6.5 - 8.5 g/dL [facility] Albumin 3.4(L) 3.5 - 5.0 g/dL [facility] Alk phos 59 40 - 130 Units/L [facility] ALT 28 7 - 55 Units/L [facility] AST 26 10 - 50 Units/L [facility] Comment:Hemolyzed; result ma y be falsely elevated Blood 10/13/2024 8:12 PM HOGSHEAD OPENER 10/13/2024 8:23 PM HOGSHEAD OPENER James Robles MD LAB BLOOD ORDERABLES Final Resu lt Performing Organization Address [facility] de Phone Number [facility] Department [place] [address] * (ABNORMAL) Basic metabolic panel (10/13/2024 8:12 PM HOGSHEAD OPENER) Sodium 140 135 - 145 mmol/L Potassium, pl 4.7 3.3 - 4.9 mmol/L [facility] Comment:Hemolyzed; Potassium value may be falsely elevated by as much as 0.3-0.5 mmol/L. Suggest redraw and reanalysis. Chloride 107 97 - 110 mmol/L [facility] CO2 23 22 - 32 mmol/L [facility] Anion gap 10 2 - 15 mmol/L [facility] BUN 26(H) 6 - 25 mg/dL [facility] Creatinine 1.25 0.80 - 1.30 mg/dL [facility] Glucose 96 70 - 199 mg/dL [facility] Comment: Interpretive Data Fasting glucose >/= 126 mg/dl is diagnostic for diabetes. ?? Fasting is defined as no caloric intake for at least 8 hours. Fasting glucose between 100 mg/dl to 125 mg/dl is diagnostic of prediabetes. In a patient with classic symptoms of hyperglycemia or hyperglycemic crisis, a random glucose >/= 200 mg/dl is diagnostic for diabetes. In the absence of unequivocal hyperglycemia, results should be confirmed by repeat testing. The classification and Diagnosis of Diabetes Diabetes Care 202; 46: S19-S40. Current interpretive data was last revised 2022. Calcium 8.9 8.5 - 10.3 mg/dL [facility] Blood 10/13/2024 8:12 PM HOGSHEAD OPENER 10/13/2024 8:23 PM HOGSHEAD OPENER us James Robles MD LAB BLOOD ORDERABLES Final Resu lt [facility] Department [place] [address] * US Vein Duplex Lower Extremity Bilateral Complete (10/13/2024 9:43 AM HOGSHEAD OPENER) Anatomical Region Laterality Modality Vascular Bilateral Ultrasound 10/13/2024 9:05 AM HOGSHEAD OPENER Narrative 10/13/2024 1:52 PM HOGSHEAD OPENER [facility] - Department of Vascular Surgery, Vascular Laboratory [address] [place] [address] Lower Extremity Venous Ultrasound Report Patient Name: LILI DELGADO F : 1950 (74y ) Study Date: 10/13/2024 9:05:32 AM Gender: M Tech: SAGAR Location: [id number] Ref Provider: MEGHAN WHYTE Quality: Adequate Order Provider: MEGHAN WHYTE PROCEDURES: Vascular Report: Venous Duplex imaging was performed bilaterally in the lower extremities. The common femoral, femoral, popliteal, posterior tibial, peroneal veins were evaluated for patency, spontaneity and phasicity with Doppler, compression and augmentation maneuvers. Great saphenous vein proximal at the junction was evaluated with compression maneuvers. INDICATIONS: hx of DVT- re-assess thrombus size per hematology - FINDINGS: Performing Wood Engraver: Jessica Aguilar RVT. Right: Duplex scan reveals dilated vein with echogenic, intraluminal, non-compressible material consistent with acute deep vein thrombosis in the right lower extremity. Deep veins involved include the right popliteal vein, posterior tibial veins and peroneal veins. All other evaluated veins on the right are patent. Left: Venous Doppler signals in the left lower extremity are within normal limits for spontaneity and phasicity and respond normally to augmentation maneuvers. No evidence of deep vein thrombus by duplex, proximal to the calf. Provider Notification: Results called on the above date to Meghan Whyte SHRIMP PEELING MACHINE OPERATOR at 9:40am. CONCLUSIONS: 1. There is acute deep vein thrombosis involving vein(s) as noted above in the right lower extremity. 2. There is no evidence of acute deep vein thrombosis on the left. Noninvasive venous studies cannot rule out isolated calf vein obstruction. HISTORY: Hx of DVT, HTN, GERD, HLD, CKD. PREVIOUS STUDIES: Previous study performed on 10/09/24 Right- DVT in popliteal vein, Lt- negative. DISCLAIMER: The study images and the final report will be retained in the patient chart by the Vascular Laboratory for the legally required time period. This chart constitutes the legal record of any testing performed. ATTESTATION: I have reviewed and interpreted the pertinent images and measurements of this study. I attest to the conclusions in the final report that is provided above. Electronically Signed By: Tyshawn Mullins MD FACS 10/13/2024 1:52:11 PM HOGSHEAD OPENER Procedure Note Tyshawn Mullins MD - 10/13/2024 [facility] - Department of Vascular Surgery,Vascular Laboratory [address] [place] [id number] Lower Extremity Venous Ultrasound Report Patient Name: THUS, MONTE, F : 1950 (74y ) Study Date: 10/13/2024 9:05:32 AM Gender: M Tech: Location: [id number] Ref Provider: MEGHAN WHYTE Quality: Adequate Order Provider: MEGHAN WHYTE PROCEDURES: Vascular Report: Venous Duplex imaging was performed bilaterally in the lower extremities.The common femoral, femoral, popliteal, posterior tibial, peroneal veins wereevaluated for patency, spontaneity and phasicity with Doppler, compression and augmentationmaneuvers. Great saphenous vein proximal at the junction was evaluated with compressionmaneuvers. INDICATIONS: hx of DVT- re-assess thrombus size per hematology - FINDINGS: Performing Wood Engraver: Jessica Aguilar RVT. Right: Duplex scan reveals dilated vein with echogenic, intraluminal,non-compressible material consistent with acute deep vein thrombosis in the right lower extremity.Deep veins involved include the right popliteal vein, posterior tibial veins andperoneal veins. All other evaluated veins on the right are patent. Left: Venous Doppler signals in the left lower extremity are within normallimits for spontaneity and phasicity and respond normally to augmentation maneuvers.No evidence of deep vein thrombus by duplex, proximal to the calf. Provider Notification: Results called on the above date to Meghan Whyte NP at 9:40am. CONCLUSIONS: 1. There is acute deep vein thrombosis involving vein(s) as noted above inthe right lower extremity. 2. There is no evidence of acute deep vein thrombosis on the left.Noninvasive venous studies cannot rule out isolated calf vein obstruction. HISTORY: Hx of DVT, HTN, GERD, HLD, CKD. PREVIOUS STUDIES: Previous study performed on 10/09/24 Right- DVT in popliteal vein, Lt-negative. DISCLAIMER: The study images and the final report will be retained in the patientchart by the Vascular Laboratory for the legally required time period. This chartconstitutes the legal record of any testing performed. ATTESTATION: I have reviewed and interpreted the pertinent images and measurements ofthis study. I attest to the conclusions in the final report that is provided above. Electronically Signed By: Tyshawn Mullins MD FACS 10/13/2024 1:52:11 PM HOGSHEAD OPENER us Meghan Stephanie Toothaker SHRIMP PEELING MACHINE OPERATOR IMG US PROCEDURES Final Result * (ABNORMAL) aPTT (10/13/2024 6:24 AM HOGSHEAD OPENER) Pathologist [facility] aPTT 55(H) 28 - 38 sec Comment: Interpretive Data Heparin therapeutic range: 66.0 - 100.0 seconds. Range based on correlation with therapeutic heparin activity range of 0.3 - 0.7 Units/mL. Current interpretive data was last revised on 2023. Blood 10/13/2024 6:24 AM HOGSHEAD OPENER 10/13/2024 6:52 AM HOGSHEAD OPENER Narrative [facility] - 10/13/2024 7:17 AM HOGSHEAD OPENER STAT PTT timing: - Draw 6 hours after heparin infusion initiation - Draw 6 hours after every dose change until 2 consecutive PTTs are therapeutic - Once 2 consecutive PTTs are therapeutic, obtain with daily labs until infusion is discontinued - - Restart every 6 hour lab draws and follow instructions accordingly if PTT is outside of therapeutic range Do not draw lab from IV line that is actively infusing heparin. ??Use the opposite arm. ??If arm with actively infusing heparin must be used, pause the infusion for at least 2 minutes, and draw specimen below the IV site. ??For patients with a central venous catheter (CVC), lab must be drawn peripherally (not from CVC). us James Robles MD LAB BLOOD ORDERABLES Final Resu lt [facility] Department of Laboratories [place], [place] [id number] * (ABNORMAL) eGFR (10/12/2024 9:40 PM HOGSHEAD OPENER) Pathologist [facility] eGFR 49(L) >=60 mL/min/1. 73 m2 Comment: Interpretive Data Reference Interval Normal ?>/= 90 mL/min/1.73m2 Mildly decreased* ? 60 - 89 mL/min/1.73m2 Mildly to moderately decreased ?45 - 59 mL/min/1.73m2 Moderately to severely decreased ??30 - 44 mL/min/1.73m2 Severely decreased ?15 - 29 mL/min/1.73m2 Kidney Failure ?< 15 ??mL/min/1.73m2 *Relative to young adult level Estimated glomerular filtration rate is determined by the 2020 CKD-EPI equation recommended by the National Kidney Foundation (A Unifying Approach to GFR Estimation: Recommendations of the NKF-ASK Task Force on Reassessing the Inclusion of Race in Diagnosing Kidney Disease, JASN 2020). The CKD-EPI equation should not be used for patients with unstable renal function and has not been validated in children and those over 70. Current interpretive data was last reviewed 2021. Blood 10/12/2024 9:40 PM HOGSHEAD OPENER 10/12/2024 11:24 PM HOGSHEAD OPENER James Robles MD LAB BLOOD ORDERABLES Final Resu lt Performing Organization Address [facility] Co de Phone Number [facility] Department [place] [address] * (ABNORMAL) aPTT (10/12/2024 9:40 PM HOGSHEAD OPENER) aPTT 57(H) 28 - 38 sec Comment: Interpretive Data Heparin therapeutic range: 66.0 - 100.0 seconds. Range based on correlation with therapeutic heparin activity range of 0.3 - 0.7 Units/mL. Current interpretive data was last revised on 2023. Blood 10/12/2024 9:40 PM HOGSHEAD OPENER 10/12/2024 11:26 PM HOGSHEAD OPENER Meghan Whyte NP LAB BLOOD ORDERABLES Fin al Result Performing Organization Address [facility] Co de Phone Number [facility] Department [place] [address] * (ABNORMAL) CBC without differential (10/12/2024 9:40 PM HOGSHEAD OPENER) [facility] WBC 13.9(H) 3.8 - 9.9 K/cumm Hgb 11.4(L) 13.0 - 17.5 g/dL [facility] Hct 35.0(L) 38.9 - 50.3 % [facility] Plt 232 150 - 400 K/cumm [facility] MPV 10.5 9.1 - 12.3 fL [facility] RBC 3.59(L) 4.30 - 5.80 M/cumm [facility] MCV 97.5(H) 81.3 - 96.4 fL [facility] MCH 31.8 27.1 - 33.3 pg [facility] MCHC 32.6 32.3 - 35.7 g/dL [facility] RDW CV 14.6 11.1 - 14.9 % [facility] RDW SD 51.2(H) 35.7 - 48.1 fL [facility] NRBC abs 0.00 0.00 - 0.01 K/cumm [facility] Blood 10/12/2024 9:40 PM HOGSHEAD OPENER 10/12/2024 11:24 PM HOGSHEAD OPENER Maria Isabel Unger NP LAB BLOOD ORDERABLES Final Result [facility] Department [place] [address] * (ABNORMAL) Basic metabolic panel (10/12/2024 9:40 PM HOGSHEAD OPENER) [facility] Sodium 144 135 - 145 mmol/L Potassium, pl 4.4 3.3 - 4.9 mmol/L [facility] Chloride 109 97 - 110 mmol/L [facility] CO2 27 22 - 32 mmol/L [facility] Anion gap 8 2 - 15 mmol/L [facility] BUN 28(H) 6 - 25 mg/dL [facility] Creatinine 1.48(H) 0.80 - 1.30 mg/dL [facility] Glucose 110 70 - 199 mg/dL [facility] Comment: Interpretive Data Fasting glucose >/= 126 mg/dl is diagnostic for diabetes. ?? Fasting is defined as no caloric intake for at least 8 hours. Fasting glucose between 100 mg/dl to 125 mg/dl is diagnostic of prediabetes. In a patient with classic symptoms of hyperglycemia or hyperglycemic crisis, a random glucose >/= 200 mg/dl is diagnostic for diabetes. In the absence of unequivocal hyperglycemia, results should be confirmed by repeat testing. The classification and Diagnosis of Diabetes Diabetes Care 2021; 46: S19-S40. Current interpretive data was last revised 2022. Calcium 8.4(L) 8.5 - 10.3 mg/dL [facility] Blood 10/12/2024 9:40 PM HOGSHEAD OPENER 10/12/2024 11:24 PM HOGSHEAD OPENER us James Robles MD LAB BLOOD ORDERABLES Final Resu lt [facility] Department [place] [address] * (ABNORMAL) aPTT (10/12/2024 6:21 AM HOGSHEAD OPENER) aPTT 51(H) 28 - 38 sec Comment: Interpretive Data Heparin therapeutic range: 66.0 - 100.0 seconds. Range based on correlation with therapeutic heparin activity range of 0.3 - 0.7 Units/mL. Current interpretive data was last revised on 2023. Blood 10/12/2024 6:21 AM HOGSHEAD OPENER 10/12/2024 6:49 AM HOGSHEAD OPENER Narrative [facility] - 10/12/2024 6:56 AM HOGSHEAD OPENER STAT PTT timing: - Draw 6 hours after heparin infusion initiation - Draw 6 hours after every dose change until 2 consecutive PTTs are therapeutic - Once 2 consecutive PTTs are therapeutic, obtain with daily labs until infusion is discontinued - - Restart every 6 hour lab draws and follow instructions accordingly if PTT is outside of therapeutic range Do not draw lab from IV line that is actively infusing heparin. ??Use the opposite arm. ??If arm with actively infusing heparin must be used, pause the infusion for at least 2 minutes, and draw specimen below the IV site. ??For patients with a central venous catheter (CVC), lab must be drawn peripherally (not from CVC). James Robles MD LAB BLOOD ORDERABLES Final Resu lt Performing Organization Address [facility] de Phone Number [facility] Department [place] [address] * (ABNORMAL) aPTT (10/12/2024 12:54 AM HOGSHEAD OPENER) [facility] aPTT 51(H) 28 - 38 sec Comment: Interpretive Data Heparin therapeutic range: 66.0 - 100.0 seconds. Range based on correlation with therapeutic heparin activity range of 0.3 - 0.7 Units/mL. Current interpretive data was last revised on 2023. Blood 10/12/2024 12:5 4 AM HOGSHEAD OPENER 10/12/2024 1:09 AM HOGSHEAD OPENER Narrative [facility] - 10/12/2024 1:17 AM HOGSHEAD OPENER STAT PTT timing: - Draw 6 hours after heparin infusion initiation - Draw 6 hours after every dose change until 2 consecutive PTTs are therapeutic - Once 2 consecutive PTTs are therapeutic, obtain with daily labs until infusion is discontinued - - Restart every 6 hour lab draws and follow instructions accordingly if PTT is outside of therapeutic range Do not draw lab from IV line that is actively infusing heparin. ??Use the opposite arm. ??If arm with actively infusing heparin must be used, pause the infusion for at least 2 minutes, and draw specimen below the IV site. ??For patients with a central venous catheter (CVC), lab must be drawn peripherally (not from CVC). James Robles MD LAB BLOOD ORDERABLES Final Resu lt Performing Organization Address [facility] Co de Phone Number [facility] Department [place] [address] * (ABNORMAL) eGFR (10/11/2024 9:52 PM HOGSHEAD OPENER) eGFR 42(L) >=60 mL/min/1. 73 m2 Comment: Interpretive Data Reference Interval Normal ?>/= 90 mL/min/1.73m2 Mildly decreased* ? 60 - 89 mL/min/1.73m2 Mildly to moderately decreased ?45 - 59 mL/min/1.73m2 Moderately to severely decreased ??30 - 44 mL/min/1.73m2 Severely decreased ?15 - 29 mL/min/1.73m2 Kidney Failure ?< 15 ??mL/min/1.73m2 *Relative to young adult level Estimated glomerular filtration rate is determined by the 2020 CKD-EPI equation recommended by the National Kidney Foundation (A Unifying Approach to GFR Estimation: Recommendations of the NKF-ASK Task Force on Reassessing the Inclusion of Race in Diagnosing Kidney Disease, JASN 2020). The CKD-EPI equation should not be used for patients with unstable renal function and has not been validated in children and those over 70. Current interpretive data was last reviewed 2021. Blood 10/11/2024 9:52 PM HOGSHEAD OPENER 10/11/2024 11:34 PM HOGSHEAD OPENER us James Robles MD LAB BLOOD ORDERABLES Final Resu lt [facility] [place] [address] * (ABNORMAL) CBC without differential (10/11/2024 9:52 PM HOGSHEAD OPENER) [facility] WBC 15.3(H) 3.8 - 9.9 K/cumm Hgb 10.9(L) 13.0 - 17.5 g/dL [facility] Hct 33.4(L) 38.9 - 50.3 % [facility] Plt 234 150 - 400 K/cumm [facility] MPV 10.4 9.1 - 12.3 fL [facility] RBC 3.47(L) 4.30 - 5.80 M/cumm [facility] MCV 96.3 81.3 - 96.4 fL [facility] MCH 31.4 27.1 - 33.3 pg [facility] MCHC 32.6 32.3 - 35.7 g/dL [facility] RDW CV 14.3 11.1 - 14.9 % [facility] RDW SD 49.6(H) 35.7 - 48.1 fL [facility] NRBC abs 0.00 0.00 - 0.01 K/cumm [facility] Blood 10/11/2024 9:52 PM HOGSHEAD OPENER 10/11/2024 11:34 PM HOGSHEAD OPENER Maria Isabel Unger NP LAB BLOOD ORDERABLES Final Result Performing Organization Address City/State/[facility] Co de Phone Number [facility] Department [place] [address] * (ABNORMAL) Basic metabolic panel (10/11/2024 9:52 PM HOGSHEAD OPENER) Sodium 141 135 - 145 mmol/L Potassium, pl 4.6 3.3 - 4.9 mmol/L [facility] Chloride 107 97 - 110 mmol/L [facility] CO2 27 22 - 32 mmol/L [facility] Anion gap 7 2 - 15 mmol/L [facility] BUN 35(H) 6 - 25 mg/dL [facility] Creatinine 1.68(H) 0.80 - 1.30 mg/dL [facility] Glucose 115 70 - 199 mg/dL [facility] Comment: Interpretive Data Fasting glucose >/= 126 mg/dl is diagnostic for diabetes. ?? Fasting is defined as no caloric intake for at least 8 hours. Fasting glucose between 100 mg/dl to 125 mg/dl is diagnostic of prediabetes. In a patient with classic symptoms of hyperglycemia or hyperglycemic crisis, a random glucose >/= 200 mg/dl is diagnostic for diabetes. In the absence of unequivocal hyperglycemia, results should be confirmed by repeat testing. The classification and Diagnosis of Diabetes Diabetes Care 2021; 46: S19-S40. Current interpretive data was last revised 2022. Calcium 8.1(L) 8.5 - 10.3 mg/dL [facility] Blood 10/11/2024 9:52 PM HOGSHEAD OPENER 10/11/2024 11:34 PM HOGSHEAD OPENER James Robles MD LAB BLOOD ORDERABLES Final Resu lt Performing Organization Address [facility] Co de Phone Number [facility] Department [place] [address] * aPTT (10/11/2024 5:30 PM HOGSHEAD OPENER) aPTT 33 28 - 38 sec Comment: Interpretive Data Heparin therapeutic range: 66.0 - 100.0 seconds. Range based on correlation with therapeutic heparin activity range of 0.3 - 0.7 Units/mL. Current interpretive data was last revised on 2023. Blood 10/11/2024 5:3 0 PM HOGSHEAD OPENER 10/11/2024 5:59 PM HOGSHEAD OPENER Narrative [facility] - 10/11/2024 6:07 PM HOGSHEAD OPENER STAT PTT timing: - Draw 6 hours after heparin infusion initiation - Draw 6 hours after every dose change until 2 consecutive PTTs are therapeutic - Once 2 consecutive PTTs are therapeutic, obtain with daily labs until infusion is discontinued - - Restart every 6 hour lab draws and follow instructions accordingly if PTT is outside of therapeutic range Do not draw lab from IV line that is actively infusing heparin. ??Use the opposite arm. ??If arm with actively infusing heparin must be used, pause the infusion for at least 2 minutes, and draw specimen below the IV site. ??For patients with a central venous catheter (CVC), lab must be drawn peripherally (not from CVC). James Robles MD LAB BLOOD ORDERABLES Final Resu lt Performing Organization Address [facility]/ZIP Co de Phone Number [facility] Department [place] [address] * (ABNORMAL) eGFR (10/10/2024 8:04 PM HOGSHEAD OPENER) eGFR 45(L) >=60 mL/min/1. 73 m2 Comment: Interpretive Data Reference Interval Normal ?>/= 90 mL/min/1.73m2 Mildly decreased* ? 60 - 89 mL/min/1.73m2 Mildly to moderately decreased ?45 - 59 mL/min/1.73m2 Moderately to severely decreased ??30 - 44 mL/min/1.73m2 Severely decreased ?15 - 29 mL/min/1.73m2 Kidney Failure ?< 15 ??mL/min/1.73m2 *Relative to young adult level Estimated glomerular filtration rate is determined by the 2020 CKD-EPI equation recommended by the National Kidney Foundation (A Unifying Approach to GFR Estimation: Recommendations of the NKF-ASK Task Force on Reassessing the Inclusion of Race in Diagnosing Kidney Disease, JASN 2020). The CKD-EPI equation should not be used for patients with unstable renal function and has not been validated in children and those over 70. Current interpretive data was last reviewed 2021. Blood 10/10/2024 8:04 PM HOGSHEAD OPENER 10/10/2024 8:34 PM HOGSHEAD OPENER us James Robles MD LAB BLOOD ORDERABLES Final Resu lt [facility] Department [place] [address] * (ABNORMAL) aPTT (10/10/2024 8:04 PM HOGSHEAD OPENER) aPTT 22(L) 28 - 38 sec Comment: Interpretive Data Heparin therapeutic range: 66.0 - 100.0 seconds. Range based on correlation with therapeutic heparin activity range of 0.3 - 0.7 Units/mL. Current interpretive data was last revised on 2023. Blood 10/10/2024 8:04 PM HOGSHEAD OPENER 10/10/2024 8:24 PM HOGSHEAD OPENER James Robles MD LAB BLOOD ORDERABLES Final Resu lt Performing Organization Address [facility] Co de Phone Number [facility] [place] [address] * (ABNORMAL) aPTT (10/10/2024 8:04 PM HOGSHEAD OPENER) [facility] aPTT 22(L) 28 - 38 sec Comment: Interpretive Data Heparin therapeutic range: 66.0 - 100.0 seconds. Range based on correlation with therapeutic heparin activity range of 0.3 - 0.7 Units/mL. Current interpretive data was last revised on 2023. Blood 10/10/2024 8:04 PM HOGSHEAD OPENER 10/10/2024 8:24 PM HOGSHEAD OPENER Narrative [facility] - 10/10/2024 8:33 PM HOGSHEAD OPENER STAT PTT timing: - Draw 6 hours after heparin infusion initiation - Draw 6 hours after every dose change until 2 consecutive PTTs are therapeutic - Once 2 consecutive PTTs are therapeutic, obtain with daily labs until infusion is discontinued - - Restart every 6 hour lab draws and follow instructions accordingly if PTT is outside of therapeutic range Do not draw lab from IV line that is actively infusing heparin. ??Use the opposite arm. ??If arm with actively infusing heparin must be used, pause the infusion for at least 2 minutes, and draw specimen below the IV site. ??For patients with a central venous catheter (CVC), lab must be drawn peripherally (not from CVC). us James Robles MD LAB BLOOD ORDERABLES Final Resu lt Performing Organization Address [facility]/ZIP Co de Phone Number [facility] Department [place] [address] * Protime-INR (10/10/2024 8:04 PM HOGSHEAD OPENER) Pathologist [facility] PT 12.0 9.7 - 13.0 sec INR 1.11 0.90 - 1.20 [facility] Comment: Interpretive data Oral anticoagulant therapeutic ranges: Venous thromboembolism prophylaxis or treatment: 2.0-3.0 CARDIOLOGY Standard range: 2.0-3.0 High-intensity range: 2.5-3.5 Refer to indication-specific guidelines for appropriate target ranges for prosthetic heart valve replacement. Current interpretive data was last revised on 2019. Blood 10/10/2024 8:04 PM HOGSHEAD OPENER 10/10/2024 8:24 PM HOGSHEAD OPENER us James Robles MD LAB BLOOD ORDERABLES Final Resu lt [facility] Department [place] [address] * (ABNORMAL) CBC without differential (10/10/2024 8:04 PM HOGSHEAD OPENER) [facility] WBC 17.1(H) 3.8 - 9.9 K/cumm Hgb 11.6(L) 13.0 - 17.5 g/dL [facility] Hct 34.3(L) 38.9 - 50.3 % [facility] Plt 260 150 - 400 K/cumm [facility] MPV 10.3 9.1 - 12.3 fL [facility] RBC 3.62(L) 4.30 - 5.80 M/cumm [facility] MCV 94.8 81.3 - 96.4 fL [facility] MCH 32.0 27.1 - 33.3 pg [facility] MCHC 33.8 32.3 - 35.7 g/dL [facility] RDW CV 14.2 11.1 - 14.9 % [facility] RDW SD 48.3(H) 35.7 - 48.1 fL [facility] NRBC abs 0.00 0.00 - 0.01 K/cumm [facility] Blood 10/10/2024 8:04 PM HOGSHEAD OPENER 10/10/2024 8:34 PM HOGSHEAD OPENER us Maria Isabel Unger NP LAB BLOOD ORDERABLES Final Result [facility] Department [place] [address] * (ABNORMAL) Basic metabolic panel (10/10/2024 8:04 PM HOGSHEAD OPENER) [facility] Sodium 140 135 - 145 mmol/L Potassium, pl 4.6 3.3 - 4.9 mmol/L [facility] Chloride 105 97 - 110 mmol/L [facility] CO2 24 22 - 32 mmol/L [facility] Anion gap 11 2 - 15 mmol/L [facility] BUN 32(H) 6 - 25 mg/dL [facility] Creatinine 1.59(H) 0.80 - 1.30 mg/dL [facility] Glucose 108 70 - 199 mg/dL [facility] Comment: Interpretive Data Fasting glucose >/= 126 mg/dl is diagnostic for diabetes. ?? Fasting is defined as no caloric intake for at least 8 hours. Fasting glucose between 100 mg/dl to 125 mg/dl is diagnostic of prediabetes. In a patient with classic symptoms of hyperglycemia or hyperglycemic crisis, a random glucose >/= 200 mg/dl is diagnostic for diabetes. In the absence of unequivocal hyperglycemia, results should be confirmed by repeat testing. The classification and Diagnosis of Diabetes Diabetes Care 2021; 46: S19-S40. Current interpretive data was last revised 2022. Calcium 8.4(L) 8.5 - 10.3 mg/dL [facility] Blood 10/10/2024 8:04 PM HOGSHEAD OPENER 10/10/2024 8:34 PM HOGSHEAD OPENER us James Robles MD LAB BLOOD ORDERABLES Final Resu lt Performing Organization Address City/[facility]/ZIP Co de Phone Number [facility] Department [place] [address] * (ABNORMAL) CBC without differential (10/10/2024 11:51 AM HOGSHEAD OPENER) WBC 21.0(H) 3.8 - 9.9 K/cumm Hgb 12.0(L) 13.0 - 17.5 g/dL [facility] Hct 36.7(L) 38.9 - 50.3 % [facility] Plt 272 150 - 400 K/cumm [facility] MPV 10.4 9.1 - 12.3 fL [facility] RBC 3.84(L) 4.30 - 5.80 M/cumm [facility] MCV 95.6 81.3 - 96.4 fL [facility] MCH 31.3 27.1 - 33.3 pg [facility] MCHC 32.7 32.3 - 35.7 g/dL [facility] RDW CV 14.0 11.1 - 14.9 % [facility] RDW SD 47.8 35.7 - 48.1 fL [facility] NRBC abs 0.00 0.00 - 0.01 K/cumm [facility] Blood 10/10/2024 11:5 1 AM HOGSHEAD OPENER 10/10/2024 12:26 PM HOGSHEAD OPENER Narrative [facility] - 10/10/2024 12:37 PM HOGSHEAD OPENER Baseline prior to heparin initiation us James Robles MD LAB BLOOD ORDERABLES Final Resu lt [facility] Department [place] [address] * (ABNORMAL) aPTT (10/10/2024 11:36 AM HOGSHEAD OPENER) Pathologist [facility] aPTT 23(L) 28 - 38 sec Comment: Interpretive Data Heparin therapeutic range: 66.0 - 100.0 seconds. Range based on correlation with therapeutic heparin activity range of 0.3 - 0.7 Units/mL. Current interpretive data was last revised on 2023. Blood 10/10/2024 11:3 6 AM HOGSHEAD OPENER 10/10/2024 11:47 AM HOGSHEAD OPENER Narrative [facility] - 10/10/2024 12:16 PM HOGSHEAD OPENER Baseline prior to heparin initiation James Robles MD LAB BLOOD ORDERABLES Final Resu lt Performing Organization Address [facility] de Phone Number [facility] [place] [address] * Protime-INR (10/10/2024 11:36 AM HOGSHEAD OPENER) PT 11.3 9.7 - 13.0 sec INR 1.05 0.90 - 1.20 [facility] Comment: Interpretive data Oral anticoagulant therapeutic ranges: Venous thromboembolism prophylaxis or treatment: 2.0-3.0 CARDIOLOGY Standard range: 2.0-3.0 High-intensity range: 2.5-3.5 Refer to indication-specific guidelines for appropriate target ranges for prosthetic heart valve replacement. Current interpretive data was last revised on 2019. Blood 10/10/2024 11:3 6 AM HOGSHEAD OPENER 10/10/2024 11:47 AM HOGSHEAD OPENER Narrative [facility] - 10/10/2024 12:16 PM HOGSHEAD OPENER Baseline prior to heparin initiation Result [facility] James Robles MD LAB BLOOD ORDERABLES Final Resu Performing Organization Address [facility] de Phone Number [facility] [place] [address] * (ABNORMAL) eGFR (10/10/2024 3:19 AM HOGSHEAD OPENER) Pathologist [facility] eGFR 53(L) >=60 mL/min/1. 73 m2 Comment: Interpretive Data Reference Interval Normal ?>/= 90 mL/min/1.73m2 Mildly decreased* ? 60 - 89 mL/min/1.73m2 Mildly to moderately decreased ?45 - 59 mL/min/1.73m2 Moderately to severely decreased ??30 - 44 mL/min/1.73m2 Severely decreased ?15 - 29 mL/min/1.73m2 Kidney Failure ?< 15 ??mL/min/1.73m2 *Relative to young adult level Estimated glomerular filtration rate is determined by the 2020 CKD-EPI equation recommended by the National Kidney Foundation (A Unifying Approach to GFR Estimation: Recommendations of the NKF-ASK Task Force on Reassessing the Inclusion of Race in Diagnosing Kidney Disease, JASN 2020). The CKD-EPI equation should not be used for patients with unstable renal function and has not been validated in children and those over 70. Current interpretive data was last reviewed 2021. Blood 10/10/2024 3:19 AM HOGSHEAD OPENER 10/10/2024 5:57 AM HOGSHEAD OPENER us James Robles MD LAB BLOOD ORDERABLES Final Resu lt [facility] Department [place] [address] * (ABNORMAL) CBC without differential (10/10/2024 3:19 AM HOGSHEAD OPENER) WBC 18.6(H) 3.8 - 9.9 K/cumm Hgb 11.7(L) 13.0 - 17.5 g/dL [facility] Hct 35.3(L) 38.9 - 50.3 % [facility] Plt 234 150 - 400 K/cumm [facility] MPV 10.4 9.1 - 12.3 fL [facility] RBC 3.69(L) 4.30 - 5.80 M/cumm [facility] MCV 95.7 81.3 - 96.4 fL [facility] MCH 31.7 27.1 - 33.3 pg [facility] MCHC 33.1 32.3 - 35.7 g/dL [facility] RDW CV 14.1 11.1 - 14.9 % [facility] RDW SD 48.1 35.7 - 48.1 fL [facility] NRBC abs 0.00 0.00 - 0.01 K/cumm [facility] Blood 10/10/2024 3:19 AM HOGSHEAD OPENER 10/10/2024 6:01 AM HOGSHEAD OPENER us Maria Isabel Unger NP LAB BLOOD ORDERABLES Final Result Performing Organization Address [facility]/ZIP Co de Phone Number [facility] Department [place] [address] * (ABNORMAL) Basic metabolic panel (10/10/2024 3:19 AM HOGSHEAD OPENER) [facility] Sodium 141 135 - 145 mmol/L Potassium, pl 4.2 3.3 - 4.9 mmol/L [facility] Chloride 106 97 - 110 mmol/L [facility] CO2 27 22 - 32 mmol/L [facility] Anion gap 8 2 - 15 mmol/L [facility] BUN 34(H) 6 - 25 mg/dL [facility] Creatinine 1.38(H) 0.80 - 1.30 mg/dL [facility] Glucose 95 70 - 199 mg/dL [facility] Comment: Interpretive Data Fasting glucose >/= 126 mg/dl is diagnostic for diabetes. ?? Fasting is defined as no caloric intake for at least 8 hours. Fasting glucose between 100 mg/dl to 125 mg/dl is diagnostic of prediabetes. In a patient with classic symptoms of hyperglycemia or hyperglycemic crisis, a random glucose >/= 200 mg/dl is diagnostic for diabetes. In the absence of unequivocal hyperglycemia, results should be confirmed by repeat testing. The classification and Diagnosis of Diabetes Diabetes Care 2021; 46: S19-S40. Current interpretive data was last revised 2022. Calcium 8.5 8.5 - 10.3 mg/dL [facility] Blood 10/10/2024 3:19 AM HOGSHEAD OPENER 10/10/2024 5:57 AM HOGSHEAD OPENER James Robles MD LAB BLOOD ORDERABLES Final Resu lt Performing Organization Address [facility]/ZIP Co de Phone Number [facility] Department [place] [address] * POCT glucose (10/09/2024 8:41 PM HOGSHEAD OPENER) Glucose, POC 141 70 - 199 mg/dL Blood 10/09/2024 8:41 PM HOGSHEAD OPENER 10/09/2024 8:41 PM HOGSHEAD OPENER us James Robles MD LAB POCT ORDERABLES - DEVICE Fi nal Result [facility] Department [place] [address] * US Vein Duplex Lower Extremity Bilateral Complete (10/09/2024 10:08 AM HOGSHEAD OPENER) Anatomical Region Laterality Modality Vascular Bilateral Ultrasound 10/09/2024 9:49 AM HOGSHEAD OPENER Narrative 10/09/2024 11:51 AM HOGSHEAD OPENER [facility] [employer] [facility] - Department of Vascular Surgery, Vascular Laboratory [address] [place] [id number] Lower Extremity Venous Ultrasound Report Patient Name: LILI DELGADO F : 1950 (74y ) Study Date: 10/09/2024 9:49:45 AM Gender: M Tech: AL Location: [id number] Ref Provider: OSIRIS OLIVEIRA ?Quality: Adequate Order Provider: OSIRIS OLIVEIRA PROCEDURES: Vascular Report: Venous Duplex imaging was performed bilaterally in the lower extremities. The common femoral, femoral, popliteal, posterior tibial, peroneal veins were evaluated for patency, spontaneity and phasicity with Doppler, compression and augmentation maneuvers. Great saphenous vein proximal at the junction was evaluated with compression maneuvers. INDICATIONS: Pain in Leg, Left; Pain in Leg, Right - FINDINGS: Performing Wood Engraver: Niurka Krishna RVT. Right: Duplex scan reveals dilated vein with echogenic, intraluminal, non-compressible material consistent with acute deep vein thrombosis in the right lower extremity. Deep veins involved include the right popliteal vein. All other evaluated veins on the right are patent. Left: Venous Doppler signals in the left lower extremity are within normal limits for spontaneity and phasicity and respond normally to augmentation maneuvers. No evidence of deep vein thrombus by duplex, proximal to the calf. Provider Notification: Results called on the above date to Osiris Oliveira SHRIMP PEELING MACHINE OPERATOR at 10:06 am. CONCLUSIONS: 1. There is acute deep vein thrombosis involving vein(s) as noted above in the right lower extremity. 2. There is no evidence of acute deep vein thrombosis on the left. Noninvasive venous studies cannot rule out isolated calf vein obstruction. HISTORY: HLD, HX UPPER DVT, PRE DM. PREVIOUS STUDIES: No previous studies for comparison. DISCLAIMER: The study images and the final report will be retained in the patient chart by the Vascular Laboratory for the legally required time period. This chart constitutes the legal record of any testing performed. ATTESTATION: I have reviewed and interpreted the pertinent images and measurements of this study. I attest to the conclusions in the final report that is provided above. Electronically Signed By: Tyshawn Mullins MD FACS 2024-10-09 11:50:17 HOGSHEAD OPENER Procedure Note Tyshawn Mullins MD - 10/09/2024 [facility] - Department of Vascular Surgery,Vascular Laboratory [address] [place] [address] Lower Extremity Venous Ultrasound Report Patient Name: LILI DELGADO F : 1950 (74y ) Study Date: 10/09/2024 9:49:45 AM Gender: M Tech: AL Location: [id number] Ref Provider: OSIRIS OLIVEIRA Quality: Adequate Order Provider: OSIRIS OLIVEIRA PROCEDURES: Vascular Report: Venous Duplex imaging was performed bilaterally in the lower extremities.The common femoral, femoral, popliteal, posterior tibial, peroneal veins wereevaluated for patency, spontaneity and phasicity with Doppler, compression and augmentationmaneuvers. Great saphenous vein proximal at the junction was evaluated with compressionmaneuvers. INDICATIONS: Pain in Leg, Left; Pain in Leg, Right - FINDINGS: Performing Wood Engraver: Niurka Krishna RVT. Right: Duplex scan reveals dilated vein with echogenic, intraluminal,non-compressible material consistent with acute deep vein thrombosis in the right lower extremity.Deep veins involved include the right popliteal vein. All other evaluated veins onthe right are patent. Left: Venous Doppler signals in the left lower extremity are within normallimits for spontaneity and phasicity and respond normally to augmentation maneuvers.No evidence of deep vein thrombus by duplex, proximal to the calf. Provider Notification: Results called on the above date to Osiris Oliveira NP at 10:06 am. CONCLUSIONS: 1. There is acute deep vein thrombosis involving vein(s) as noted above inthe right lower extremity. 2. There is no evidence of acute deep vein thrombosis on the left.Noninvasive venous studies cannot rule out isolated calf vein obstruction. HISTORY: HLD, HX UPPER DVT, PRE DM. PREVIOUS STUDIES: No previous studies for comparison. DISCLAIMER: The study images and the final report will be retained in the patientchart by the Vascular Laboratory for the legally required time period. This chartconstitutes the legal record of any testing performed. ATTESTATION: I have reviewed and interpreted the pertinent images and measurements ofthis study. I attest to the conclusions in the final report that is provided above. Electronically Signed By: Tyshawn Mullins MD [facility] 2024-10-09 11:50:17 HOGSHEAD OPENER us Osiris Oliveira NP IMG US PROCEDURES Final Result * XR Chest 1 View (10/09/2024 7:55 AM HOGSHEAD OPENER) Anatomical Region Laterality Modality Body, Chest N/A Digital Radiogra phy 10/09/2024 1:25 PM HOGSHEAD OPENER Impressions 10/09/2024 4:11 PM HOGSHEAD OPENER 1. ??Interval increase in left lung base atelectasis. Dictated by: Gabriel Warner M.D. The radiology attending physician has personally reviewed this study, and had reviewed and/or edited this written report and agrees with it. Electronically signed by: Austin Olsen M.D. Narrative 10/09/2024 4:11 PM HOGSHEAD OPENER EXAMINATION: 1 view chest radiograph History: 74-year-old with chest pain COMPARISON: Chest radiograph on 10/07/2024 at 5:12 AM There is a spine stimulator. ??There is increased atelectasis of the left lung base. There is no pleural effusion or pneumothorax. The cardiac silhouette is normal. Procedure Note Austin Olsen MD - 10/09/2024 EXAMINATION: 1 view chest radiograph History: 74-year-old with chest pain COMPARISON: Chest radiograph on 10/07/2024 at 5:12 AM There is a spine stimulator. There is increased atelectasis of the left lung base. There is no pleural effusion or pneumothorax. The cardiac silhouette is normal. IMPRESSION: 1. Interval increase in left lung base atelectasis. Dictated by: Gabriel Warner M.D. The radiology attending physician has personally reviewed this study, and had reviewed and/or edited this written report and agrees with it. Electronically signed by: Austin Olsen M.D. Osiris Oliveira SHRIMP PEELING MACHINE OPERATOR IMG XR PROCEDURES Final Result * (ABNORMAL) eGFR (10/08/2024 10:15 PM HOGSHEAD OPENER) eGFR 55(L) >=60 mL/min/1. 73 m2 Comment: Interpretive Data Reference Interval Normal ?>/= 90 mL/min/1.73m2 Mildly decreased* ? 60 - 89 mL/min/1.73m2 Mildly to moderately decreased ?45 - 59 mL/min/1.73m2 Moderately to severely decreased ??30 - 44 mL/min/1.73m2 Severely decreased ?15 - 29 mL/min/1.73m2 Kidney Failure ?< 15 ??mL/min/1.73m2 *Relative to young adult level Estimated glomerular filtration rate is determined by the 202 CKD-EPI equation recommended by the National Kidney Foundation (A Unifying Approach to GFR Estimation: Recommendations of the NKF-ASK Task Force on Reassessing the Inclusion of Race in Diagnosing Kidney Disease, JASN 202). The CKD-EPI equation should not be used for patients with unstable renal function and has not been validated in children and those over 70. Current interpretive data was last reviewed 2021. Blood 10/08/2024 10:1 5 PM HOGSHEAD OPENER 10/08/2024 11:56 PM HOGSHEAD OPENER us Brianna Martínez SHRIMP PEELING MACHINE OPERATOR LAB BLOOD ORDERABLES Cammy ramos Result [facility] Department [place] [address] * (ABNORMAL) CBC without differential (10/08/2024 10:15 PM HOGSHEAD OPENER) WBC 19.8(H) 3.8 - 9.9 K/cumm Hgb 11.2(L) 13.0 - 17.5 g/dL [facility] Hct 32.9(L) 38.9 - 50.3 % [facility] Plt 264 150 - 400 K/cumm [facility] MPV 10.5 9.1 - 12.3 fL [facility] RBC 3.57(L) 4.30 - 5.80 M/cumm [facility] MCV 92.2 81.3 - 96.4 fL [facility] MCH 31.4 27.1 - 33.3 pg [facility] MCHC 34.0 32.3 - 35.7 g/dL [facility] RDW CV 13.7 11.1 - 14.9 % [facility] RDW SD 45.1 35.7 - 48.1 fL [facility] NRBC abs 0.02(H) 0.00 - 0.01 K/cumm [facility] Blood 10/08/2024 10:1 5 PM HOGSHEAD OPENER 10/08/2024 11:57 PM HOGSHEAD OPENER us Maria Isabel Unger SHRIMP PEELING MACHINE OPERATOR LAB BLOOD [place] [address] * Phosphorus (10/08/2024 10:15 PM HOGSHEAD OPENER) [facility] Phosphorus, pl 3.1 2.3 - 4.5 mg/dL Blood 10/08/2024 10:1 5 PM HOGSHEAD OPENER 10/08/2024 11:56 PM HOGSHEAD OPENER Brianna Martínez SHRIMP PEELING MACHINE OPERATOR LAB BLOOD ORDERABLES Cammy l Result Performing Organization Address City/[facility] Co de Phone Number [facility] [place] [address] * Magnesium (10/08/2024 10:15 PM HOGSHEAD OPENER) [facility] Magnesium 2.3 1.4 - 2.5 mg/dL Blood 10/08/2024 10:1 5 PM HOGSHEAD OPENER 10/08/2024 11:56 PM HOGSHEAD OPENER Brianna Martínez SHRIMP PEELING MACHINE OPERATOR LAB BLOOD ORDERABLES Cammy l Result Performing Organization Address [facility] Co de Phone Number [facility] [place] [address] * (ABNORMAL) Comprehensive metabolic panel (10/08/2024 10:15 PM HOGSHEAD OPENER) [facility] Sodium 141 135 - 145 mmol/L Potassium, pl 4.6 3.3 - 4.9 mmol/L [facility] Chloride 107 97 - 110 mmol/L [facility] CO2 25 22 - 32 mmol/L [facility] Anion gap 9 2 - 15 mmol/L [facility] BUN 33(H) 6 - 25 mg/dL [facility] Creatinine 1.33(H) 0.80 - 1.30 mg/dL [facility] Glucose 108 70 - 199 mg/dL [facility] Comment: Interpretive Data Fasting glucose >/= 126 mg/dl is diagnostic for diabetes. ?? Fasting is defined as no caloric intake for at least 8 hours. Fasting glucose between 100 mg/dl to 125 mg/dl is diagnostic of prediabetes. In a patient with classic symptoms of hyperglycemia or hyperglycemic crisis, a random glucose >/= 200 mg/dl is diagnostic for diabetes. In the absence of unequivocal hyperglycemia, results should be confirmed by repeat testing. The classification and Diagnosis of Diabetes Diabetes Care 2021; 46: S19-S40. Current interpretive data was last revised 2022. Calcium 8.6 8.5 - 10.3 mg/dL [facility] Bilirubin, total 0.3 0.1 - 1.2 mg/dL [facility] Protein, pl 4.8(L) 6.5 - 8.5 g/dL [facility] Albumin 2.9(L) 3.5 - 5.0 g/dL [facility] Alk phos 49 40 - 130 Units/L [facility] ALT 39 7 - 55 Units/L [facility] AST 19 10 - 50 Units/L [facility] Blood 10/08/2024 10:1 5 PM HOGSHEAD OPENER 10/08/2024 11:56 PM HOGSHEAD OPENER Brianna Martínez NP LAB BLOOD ORDERABLES Cammy l Result [facility] Department [place] [address] * Troponin I high-sensitivity (10/08/2024 11:36 AM HOGSHEAD OPENER) Trop I hs 30 <=35 ng/L Comment: Interpretive Data For further hscTnI resources including the diagnostic algorithm and an aid in interpretation, copy and paste this link: https://bjhlab.testcatalog.org/show/hsTrop-[email or web address] Current Interpretive Data last revised 2020. Blood 10/08/2024 11:3 6 AM HOGSHEAD OPENER 10/08/2024 11:44 AM HOGSHEAD OPENER Brianna Martínez NP LAB BLOOD ORDERABLES Cammy l Result [facility] Department [place] [address] * (ABNORMAL) Lactate (10/08/2024 8:38 AM HOGSHEAD OPENER) Pathologist [facility] Lactate 2.9(H) 0.7 - 2.0 mmol/L Blood 10/08/2024 8:38 AM HOGSHEAD OPENER 10/08/2024 11:44 AM HOGSHEAD OPENER Brianna Martínez SHRIMP PEELING MACHINE OPERATOR LAB BLOOD ORDERABLES Cammy l Result Performing Organization Address [facility] Co de Phone Number [facility] [place] [address] * eGFR (10/07/2024 10:19 PM HOGSHEAD OPENER) eGFR 62 >=60 mL/min/1. 73 m2 Comment: Interpretive Data Reference Interval Normal ?>/= 90 mL/min/1.73m2 Mildly decreased* ? 60 - 89 mL/min/1.73m2 Mildly to moderately decreased ?45 - 59 mL/min/1.73m2 Moderately to severely decreased ??30 - 44 mL/min/1.73m2 Severely decreased ?15 - 29 mL/min/1.73m2 Kidney Failure ?< 15 ??mL/min/1.73m2 *Relative to young adult level Estimated glomerular filtration rate is determined by the 2020 CKD-EPI equation recommended by the National Kidney Foundation (A Unifying Approach to GFR Estimation: Recommendations of the NKF-ASK Task Force on Reassessing the Inclusion of Race in Diagnosing Kidney Disease, JASN 2020). The CKD-EPI equation should not be used for patients with unstable renal function and has not been validated in children and those over 70. Current interpretive data was last reviewed 2021. Blood 10/07/2024 10:1 9 PM HOGSHEAD OPENER 10/07/2024 11:24 PM HOGSHEAD OPENER us James Robles MD LAB BLOOD ORDERABLES Final Resu lt Performing Organization Address City/[facility]/ZIP Co de Phone Number [facility] Department [place] [address] * (ABNORMAL) CBC without differential (10/07/2024 10:19 PM HOGSHEAD OPENER) WBC 17.2(H) 3.8 - 9.9 K/cumm Hgb 11.4(L) 13.0 - 17.5 g/dL [facility] Hct 32.7(L) 38.9 - 50.3 % [facility] Plt 264 150 - 400 K/cumm [facility] MPV 10.6 9.1 - 12.3 fL [facility] RBC 3.58(L) 4.30 - 5.80 M/cumm [facility] MCV 91.3 81.3 - 96.4 fL [facility] MCH 31.8 27.1 - 33.3 pg [facility] MCHC 34.9 32.3 - 35.7 g/dL [facility] RDW CV 13.2 11.1 - 14.9 % [facility] RDW SD 43.6 35.7 - 48.1 fL [facility] NRBC abs 0.00 0.00 - 0.01 K/cumm [facility] Blood 10/07/2024 10:1 9 PM HOGSHEAD OPENER 10/07/2024 11:24 PM HOGSHEAD OPENER us Maria Isabel Unger NP LAB BLOOD ORDERABLES Final Result [facility] Department [place] [address] * (ABNORMAL) Basic metabolic panel (10/07/2024 10:19 PM HOGSHEAD OPENER) Pathologist [facility] Sodium 142 135 - 145 mmol/L Potassium, pl 4.5 3.3 - 4.9 mmol/L [facility] Chloride 107 97 - 110 mmol/L [facility] CO2 26 22 - 32 mmol/L [facility] Anion gap 9 2 - 15 mmol/L [facility] BUN 33(H) 6 - 25 mg/dL [facility] Creatinine 1.21 0.80 - 1.30 mg/dL [facility] Glucose 140 70 - 199 mg/dL [facility] Comment: Interpretive Data Fasting glucose >/= 126 mg/dl is diagnostic for diabetes. ?? Fasting is defined as no caloric intake for at least 8 hours. Fasting glucose between 100 mg/dl to 125 mg/dl is diagnostic of prediabetes. In a patient with classic symptoms of hyperglycemia or hyperglycemic crisis, a random glucose >/= 200 mg/dl is diagnostic for diabetes. In the absence of unequivocal hyperglycemia, results should be confirmed by repeat testing. The classification and Diagnosis of Diabetes Diabetes Care 2021; 46: S19-S40. Current interpretive data was last revised 2022. Calcium 8.5 8.5 - 10.3 mg/dL [facility] Blood 10/07/2024 10:1 9 PM HOGSHEAD OPENER 10/07/2024 11:24 PM HOGSHEAD OPENER us James Robles MD LAB BLOOD ORDERABLES Final Resu lt [facility] Department [place] [address] * (ABNORMAL) Lactate, whole blood (10/07/2024 9:09 AM HOGSHEAD OPENER) Pathologist [facility] Lactate, bld 3.4(H) 0.7 - 2.0 mmol/L Blood 10/07/2024 9:09 AM HOGSHEAD OPENER 10/07/2024 9:15 AM HOGSHEAD OPENER us Brianna Martínez NP LAB BLOOD ORDERABLES Cammy l Result [facility] Department [place] [address] * (ABNORMAL) Urinalysis reflex to microscopic and culture Urine (10/07/2024 5:37 AM HOGSHEAD OPENER) Color, ur Straw Yellow Clarity, ur Clear Clear [facility] Specific gravity, ur 1.013 1.003 - 1.030 [facility] pH, urine 7.0 [facility] Comment: Interpretive Data ? Urine pH is affected by diet, medications, systemic acid-base disturbances, and renal tubular function. ??pH may affect urinary stone formation. ??For example, urine pH below 6.0 may help reduce the tendency for calcium phosphate stones and pH greater than 6.0 may reduce the tendency for uric acid stone formation. Source: [facility] Current Interpretive Data was last revised on 2017 Protein, ur ql Negative Negative [facility] Glucose, ur ql Negative Negative [facility] Ketones, ur Negative Negative [facility] Bilirubin, ur Negative Negative [facility] Blood, ur Trace(A) Negative [facility] Urobilinogen, ur <2.0 <2.0 mg/dL [facility] Nitrite, ur Negative Negative [facility] Leukocyte esterase, ur Negative Negative [facility] UA reflex comment Reflex to microscopic UA will be performed. [facility] Urine 10/07/2024 5:37 AM HOGSHEAD OPENER 10/07/2024 5:46 AM HOGSHEAD OPENER James Robles MD LAB MICROBIOLOGY - GENERAL RAYMOND JEFFERY Final Result [facility] Department [place] [address] * Blood culture Blood (10/07/2024 5:37 AM HOGSHEAD OPENER) Report Final Report: No growth Blood 10/07/2024 5:37 AM HOGSHEAD OPENER 10/07/2024 7:00 AM HOGSHEAD OPENER Narrative [facility] - 10/11/2024 7:00 AM HOGSHEAD OPENER Collection->Peripheral 1. ?Blood cultures are incubated for 4 days on a continuously monitored blood culture system. The first report of a negative culture is issued within 24 hours of receipt of the specimen in the laboratory. 2. ?Positive culture results are reported as soon as they are detected. 3. ?The most important factor for detection of microbes in the setting of bloodstream infection is the volume of blood submitted for culture. Failure to collect an optimal blood volume can result in false negative blood cultures. For pediatric patients, the recommended blood volume to collect is 1 mL of blood per year of patient age (up to 20 mL) per blood culture set. For adult patients, 20 mL of blood, divided equally between aerobic and anaerobic blood culture bottles, is recommended for each blood culture set. 4. ?For blood cultures with Gram-positive cocci, a rapid molecular test for organism identification may be performed using the [employer] Gram-Positive Blood Culture Assay. This assay detects microbial DNA in positive blood culture broth via hybridization of target DNA to capture oligonucleotides on a microarray. This assay has been cleared by the [place] Food and Drug Administration and its performance characteristics have been verified by the [facility]. 5. ?For questions about this culture, contact the Microbiology Laboratory at [phone]. Interpretive data was last revised on 2020. James Robles MD LAB MICROBIOLOGY - GENERAL RAYMOND JEFFERY Final Result [facility] Department [place] [address] * Blood culture Blood (10/07/2024 5:37 AM HOGSHEAD OPENER) Report Final Report: No growth Blood 10/07/2024 5:37 AM HOGSHEAD OPENER 10/07/2024 6:07 AM HOGSHEAD OPENER Narrative [facility] - 10/11/2024 7:00 AM HOGSHEAD OPENER Collection->Peripheral 1. ?Blood cultures are incubated for 4 days on a continuously monitored blood culture system. The first report of a negative culture is issued within 24 hours of receipt of the specimen in the laboratory. 2. ?Positive culture results are reported as soon as they are detected. 3. ?The most important factor for detection of microbes in the setting of bloodstream infection is the volume of blood submitted for culture. Failure to collect an optimal blood volume can result in false negative blood cultures. For pediatric patients, the recommended blood volume to collect is 1 mL of blood per year of patient age (up to 20 mL) per blood culture set. For adult patients, 20 mL of blood, divided equally between aerobic and anaerobic blood culture bottles, is recommended for each blood culture set. 4. ?For blood cultures with Gram-positive cocci, a rapid molecular test for organism identification may be performed using the [employer] Gram-Positive Blood Culture Assay. This assay detects microbial DNA in positive blood culture broth via hybridization of target DNA to capture oligonucleotides on a microarray. This assay has been cleared by the [place] Food and Drug Administration and its performance characteristics have been verified by the [facility]. 5. ?For questions about this culture, contact the Microbiology Laboratory at [phone]. Interpretive data was last revised on 2020. James Robles MD LAB MICROBIOLOGY - GENERAL ORDE RABLES Final Result Performing Organization Address City/[facility]/ZIP Co de Phone Number [facility] Department [place] [address] * (ABNORMAL) Urinalysis, microscopic only (10/07/2024 5:37 AM HOGSHEAD OPENER) WBC, ur 0-5 0 - 5 /HPF RBC, ur 11-20(A) 0 - 2 /HPF [facility] Mucous, ur Present(A) [facility] Culture Reflex Comment Reflex conditions for urine culture (WBC >10) not met. [facility] Urine 10/07/2024 5:37 AM HOGSHEAD OPENER 10/07/2024 5:46 AM HOGSHEAD OPENER James Robles MD LAB URINE ORDERABLES Final Resu lt Performing Organization Address City/[facility]/ZIP Co de Phone Number [facility] Department [place] [address] * XR Chest 1 View (10/07/2024 5:18 AM HOGSHEAD OPENER) Anatomical Region Laterality Modality Body, Chest N/A Computed Radiogr aphy 10/07/2024 7:05 AM HOGSHEAD OPENER Impressions 10/07/2024 7:05 AM HOGSHEAD OPENER The current study is compared with the prior radiograph dated ??10/02/2024. ??Spine stimulator is present. ??The heart and mediastinal contours are normal. ??There is no mass or consolidation. There is no lymphadenopathy. ??There are no pleural effusions. ??There is no pneumothorax. There is no interval change. Electronically signed by: Lauren Cantrell M.D. Narrative 10/07/2024 7:05 AM HOGSHEAD OPENER EXAMINATION: 1 view chest radiograph Procedure Note Lauren Cantrell MD - 10/07/2024 EXAMINATION: 1 view chest radiograph IMPRESSION: The current study is compared with the prior radiograph dated 10/02/2024. Spine stimulator is present. The heart and mediastinal contours are normal. There is no mass or consolidation. There is no lymphadenopathy. There are no pleural effusions. There is no pneumothorax. There is no interval change. Electronically signed by: Lauren Cantrell M.D. us James Robles MD IMG XR PROCEDURES Final Result * (ABNORMAL) Lactate, whole blood (10/06/2024 9:30 PM HOGSHEAD OPENER) Lactate, bld 2.7(H) 0.7 - 2.0 mmol/L Blood 10/06/2024 9:30 PM HOGSHEAD OPENER 10/06/2024 9:30 PM HOGSHEAD OPENER us Tamanna Porras SHRIMP PEELING MACHINE OPERATOR LAB BLOOD ORDERABLES Final Resul t [facility] [place] [address] * eGFR (10/06/2024 9:16 PM HOGSHEAD OPENER) eGFR 61 >=60 mL/min/1. 73 m2 Comment: Interpretive Data Reference Interval Normal ?>/= 90 mL/min/1.73m2 Mildly decreased* ? 60 - 89 mL/min/1.73m2 Mildly to moderately decreased ?45 - 59 mL/min/1.73m2 Moderately to severely decreased ??30 - 44 mL/min/1.73m2 Severely decreased ?15 - 29 mL/min/1.73m2 Kidney Failure ?< 15 ??mL/min/1.73m2 *Relative to young adult level Estimated glomerular filtration rate is determined by the 2020 CKD-EPI equation recommended by the National Kidney Foundation (A Unifying Approach to GFR Estimation: Recommendations of the NKF-ASK Task Force on Reassessing the Inclusion of Race in Diagnosing Kidney Disease, JASN 2020). The CKD-EPI equation should not be used for patients with unstable renal function and has not been validated in children and those over 70. Current interpretive data was last reviewed 2021. Blood 10/06/2024 9:16 PM HOGSHEAD OPENER 10/06/2024 9:34 PM HOGSHEAD OPENER us James Robles MD LAB BLOOD ORDERABLES Final Resu lt [facility] [place] [address] * (ABNORMAL) CBC without differential (10/06/2024 9:16 PM HOGSHEAD OPENER) [facility] WBC 17.1(H) 3.8 - 9.9 K/cumm Hgb 10.8(L) 13.0 - 17.5 g/dL [facility] Hct 30.7(L) 38.9 - 50.3 % [facility] Plt 256 150 - 400 K/cumm [facility] MPV 10.3 9.1 - 12.3 fL [facility] RBC 3.40(L) 4.30 - 5.80 M/cumm [facility] MCV 90.3 81.3 - 96.4 fL [facility] MCH 31.8 27.1 - 33.3 pg [facility] MCHC 35.2 32.3 - 35.7 g/dL [facility] RDW CV 13.1 11.1 - 14.9 % [facility] RDW SD 43.2 35.7 - 48.1 fL [facility] NRBC abs 0.00 0.00 - 0.01 K/cumm [facility] Blood 10/06/2024 9:16 PM HOGSHEAD OPENER 10/06/2024 9:34 PM HOGSHEAD OPENER Maria Isabel Unger NP LAB BLOOD ORDERABLES Final Result [facility] Department [place] [address] * (ABNORMAL) Basic metabolic panel (10/06/2024 9:16 PM HOGSHEAD OPENER) Sodium 140 135 - 145 mmol/L Potassium, pl 4.7 3.3 - 4.9 mmol/L [facility] Chloride 105 97 - 110 mmol/L [facility] CO2 25 22 - 32 mmol/L [facility] Anion gap 10 2 - 15 mmol/L [facility] BUN 32(H) 6 - 25 mg/dL [facility] Creatinine 1.22 0.80 - 1.30 mg/dL [facility] Glucose 152 70 - 199 mg/dL [facility] Comment: Interpretive Data Fasting glucose >/= 126 mg/dl is diagnostic for diabetes. ?? Fasting is defined as no caloric intake for at least 8 hours. Fasting glucose between 100 mg/dl to 125 mg/dl is diagnostic of prediabetes. In a patient with classic symptoms of hyperglycemia or hyperglycemic crisis, a random glucose >/= 200 mg/dl is diagnostic for diabetes. In the absence of unequivocal hyperglycemia, results should be confirmed by repeat testing. The classification and Diagnosis of Diabetes Diabetes Care ; 46: S19-S40. Current interpretive data was last revised 2022. Calcium 8.7 8.5 - 10.3 mg/dL [facility] Blood 10/06/2024 9:16 PM HOGSHEAD OPENER 10/06/2024 9:34 PM HOGSHEAD OPENER us James Robles MD LAB BLOOD ORDERABLES Final Resu lt [facility] Department [place] [address] * eGFR (10/05/2024 10:43 PM HOGSHEAD OPENER) eGFR 67 >=60 mL/min/1. 73 m2 Comment: Interpretive Data Reference Interval Normal ?>/= 90 mL/min/1.73m2 Mildly decreased* ? 60 - 89 mL/min/1.73m2 Mildly to moderately decreased ?45 - 59 mL/min/1.73m2 Moderately to severely decreased ??30 - 44 mL/min/1.73m2 Severely decreased ?15 - 29 mL/min/1.73m2 Kidney Failure ?< 15 ??mL/min/1.73m2 *Relative to young adult level Estimated glomerular filtration rate is determined by the 2020 CKD-EPI equation recommended by the National Kidney Foundation (A Unifying Approach to GFR Estimation: Recommendations of the NKF-ASK Task Force on Reassessing the Inclusion of Race in Diagnosing Kidney Disease, JASN 2020). The CKD-EPI equation should not be used for patients with unstable renal function and has not been validated in children and those over 70. Current interpretive data was last reviewed 2021. Blood 10/05/2024 10:4 3 PM HOGSHEAD OPENER 10/05/2024 11:10 PM HOGSHEAD OPENER us James Robles MD LAB BLOOD ORDERABLES Final Resu lt [facility] [place] [address] * (ABNORMAL) Lactate, whole blood (10/05/2024 10:43 PM HOGSHEAD OPENER) Pathologist [facility] Lactate, bld 2.2(H) 0.7 - 2.0 mmol/L Blood 10/05/2024 10:4 3 PM HOGSHEAD OPENER 10/05/2024 11:07 PM HOGSHEAD OPENER us Tamanna Porras NP LAB BLOOD ORDERABLES Final Resul t Performing Organization Address City/[facility] Co de Phone Number [facility] [place] [address] * (ABNORMAL) CBC without differential (10/05/2024 10:43 PM HOGSHEAD OPENER) [facility] WBC 16.5(H) 3.8 - 9.9 K/cumm Hgb 10.5(L) 13.0 - 17.5 g/dL [facility] Hct 31.4(L) 38.9 - 50.3 % [facility] Plt 238 150 - 400 K/cumm [facility] MPV 10.7 9.1 - 12.3 fL [facility] RBC 3.37(L) 4.30 - 5.80 M/cumm [facility] MCV 93.2 81.3 - 96.4 fL [facility] MCH 31.2 27.1 - 33.3 pg [facility] MCHC 33.4 32.3 - 35.7 g/dL [facility] RDW CV 13.3 11.1 - 14.9 % [facility] RDW SD 45.3 35.7 - 48.1 fL [facility] NRBC abs 0.00 0.00 - 0.01 K/cumm [facility] Blood 10/05/2024 10:4 3 PM HOGSHEAD OPENER 10/05/2024 11:11 PM HOGSHEAD OPENER us Maria Isabel Unger NP LAB BLOOD ORDERABLES Final Result Performing Organization Address City/[facility]/ZIP Co de Phone Number [facility] Department [place] [address] * (ABNORMAL) Basic metabolic panel (10/05/2024 10:43 PM HOGSHEAD OPENER) [facility] Sodium 143 135 - 145 mmol/L Potassium, pl 4.4 3.3 - 4.9 mmol/L [facility] Chloride 108 97 - 110 mmol/L [facility] CO2 25 22 - 32 mmol/L [facility] Anion gap 10 2 - 15 mmol/L [facility] BUN 30(H) 6 - 25 mg/dL [facility] Creatinine 1.14 0.80 - 1.30 mg/dL [facility] Glucose 139 70 - 199 mg/dL [facility] Comment: Interpretive Data Fasting glucose >/= 126 mg/dl is diagnostic for diabetes. ?? Fasting is defined as no caloric intake for at least 8 hours. Fasting glucose between 100 mg/dl to 125 mg/dl is diagnostic of prediabetes. In a patient with classic symptoms of hyperglycemia or hyperglycemic crisis, a random glucose >/= 200 mg/dl is diagnostic for diabetes. In the absence of unequivocal hyperglycemia, results should be confirmed by repeat testing. The classification and Diagnosis of Diabetes Diabetes Care 2021; 46: S19-S40. Current interpretive data was last revised 2022. Calcium 8.8 8.5 - 10.3 mg/dL [facility] Blood 10/05/2024 10:4 3 PM HOGSHEAD OPENER 10/05/2024 11:10 PM HOGSHEAD OPENER us James Robles MD LAB BLOOD ORDERABLES Final Resu lt Performing Organization Address [facility] Co de Phone Number [facility] Department [place] [address] * (ABNORMAL) Troponin I high-sensitivity (10/04/2024 8:49 PM HOGSHEAD OPENER) Trop I hs 128(H) <=35 ng/L Comment: Interpretive Data For further hscTnI resources including the diagnostic algorithm and an aid in interpretation, copy and paste this link: [email or web address]://bjhlab.testcatalog.org/[email or web address] Current Interpretive Data last revised 2020. Blood 10/04/2024 8:49 PM HOGSHEAD OPENER 10/04/2024 9:06 PM HOGSHEAD OPENER us Tamanna Porras SHRIMP PEELING MACHINE OPERATOR LAB BLOOD ORDERABLES Final Resul t Performing Organization Address City/[facility]/ZIP Co de Phone Number [facility] Department [place] [address] * Calcium, ionized, whole blood (10/04/2024 8:49 PM HOGSHEAD OPENER) [facility] Ca, ionized, bld 5.10 4.50 - 5.10 mg/dL Blood 10/04/2024 8:49 PM HOGSHEAD OPENER 10/04/2024 9:00 PM HOGSHEAD OPENER Tamanna Porras SHRIMP PEELING MACHINE OPERATOR LAB BLOOD ORDERABLES Final Resul t Performing Organization Address City/[facility] Co de Phone Number [facility] Department [place] [address] * (ABNORMAL) eGFR (10/04/2024 8:49 PM HOGSHEAD OPENER) Pathologist [facility] eGFR 57(L) >=60 mL/min/1. 73 m2 Comment: Interpretive Data Reference Interval Normal ?>/= 90 mL/min/1.73m2 Mildly decreased* ? 60 - 89 mL/min/1.73m2 Mildly to moderately decreased ?45 - 59 mL/min/1.73m2 Moderately to severely decreased ??30 - 44 mL/min/1.73m2 Severely decreased ?15 - 29 mL/min/1.73m2 Kidney Failure ?< 15 ??mL/min/1.73m2 *Relative to young adult level Estimated glomerular filtration rate is determined by the 2020 CKD-EPI equation recommended by the National Kidney Foundation (A Unifying Approach to GFR Estimation: Recommendations of the NKF-ASK Task Force on Reassessing the Inclusion of Race in Diagnosing Kidney Disease, JASN 2020). The CKD-EPI equation should not be used for patients with unstable renal function and has not been validated in children and those over 70. Current interpretive data was last reviewed 2021. Blood 10/04/2024 8:49 PM HOGSHEAD OPENER 10/04/2024 9:06 PM HOGSHEAD OPENER us James Robles MD LAB BLOOD ORDERABLES Final Resu lt [facility] Department [place] [address] * (ABNORMAL) Differential, auto (10/04/2024 8:49 PM HOGSHEAD OPENER) Pathologist [facility] Neutrophil abs 20.1(H) 1.5 - 6.5 K/cumm Imm gran abs 0.3(H) 0.0 - 0.1 K/cumm [facility] Lymphocyte abs 1.2 0.8 - 3.3 K/cumm [facility] Monocyte abs 1.4(H) 0.2 - 0.8 K/cumm [facility] Eosinophil abs 0.0 0.0 - 0.5 K/cumm [facility] Basophil abs 0.0 0.0 - 0.1 K/cumm [facility] Neutrophil pct 87.4 % [facility] Comment: Consistent with previous result Interpretive Data Percent cell count reference ranges are not reported, since discordance with absolute values may lead to misinterpretation of CBC data. Current Interpretive Data was last revised on 2018. Imm gran pct 1.3 % [facility] Comment: Interpretive Data Percent cell count reference ranges are not reported, since discordance with absolute values may lead to misinterpretation of CBC data. Current Interpretive Data was last revised on 2018. Lymphocyte pct 5.2 % [facility] Comment: Interpretive Data Percent cell count reference ranges are not reported, since discordance with absolute values may lead to misinterpretation of CBC data. Current Interpretive Data was last revised on 2018. Monocyte pct 6.0 % [facility] Comment: Interpretive Data Percent cell count reference ranges are not reported, since discordance with absolute values may lead to misinterpretation of CBC data. Current Interpretive Data was last revised on 2018. Eosinophil pct 0.0 % [facility] Comment: Interpretive Data Percent cell count reference ranges are not reported, since discordance with absolute values may lead to misinterpretation of CBC data. Current Interpretive Data was last revised on 2018. Basophil pct 0.1 % [facility] Comment: Interpretive Data Percent cell count reference ranges are not reported, since discordance with absolute values may lead to misinterpretation of CBC data. Current Interpretive Data was last revised on 2018. Blood 10/04/2024 8:49 PM HOGSHEAD OPENER 10/04/2024 9:06 PM HOGSHEAD OPENER us James Robles MD LAB BLOOD ORDERABLES Final Resu lt [facility] Department [place] [address] * (ABNORMAL) CBC with auto differential (10/04/2024 8:49 PM HOGSHEAD OPENER) WBC 23.0(H) 3.8 - 9.9 K/cumm Hgb 10.5(L) 13.0 - 17.5 g/dL [facility] Hct 31.0(L) 38.9 - 50.3 % [facility] Plt 207 150 - 400 K/cumm [facility] MPV 10.2 9.1 - 12.3 fL [facility] RBC 3.34(L) 4.30 - 5.80 M/cumm [facility] MCV 92.8 81.3 - 96.4 fL [facility] MCH 31.4 27.1 - 33.3 pg [facility] MCHC 33.9 32.3 - 35.7 g/dL [facility] RDW CV 13.6 11.1 - 14.9 % [facility] RDW SD 45.7 35.7 - 48.1 fL [facility] NRBC abs 0.00 0.00 - 0.01 K/cumm [facility] Blood 10/04/2024 8:49 PM HOGSHEAD OPENER 10/04/2024 9:06 PM HOGSHEAD OPENER us James Robles MD LAB BLOOD ORDERABLES Final Resu lt [facility] Department [place] [address] * (ABNORMAL) Lactate, whole blood (10/04/2024 8:49 PM HOGSHEAD OPENER) [facility] Lactate, bld 2.5(H) 0.7 - 2.0 mmol/L Blood 10/04/2024 8:49 PM HOGSHEAD OPENER 10/04/2024 9:00 PM HOGSHEAD OPENER us Tamanna Porras NP LAB BLOOD ORDERABLES Final Resul t Performing Organization Address City/[facility]/ZIP Co de Phone Number [facility] Department of [place] [id number] * (ABNORMAL) Basic metabolic panel (10/04/2024 8:49 PM HOGSHEAD OPENER) Pathologist [facility] Sodium 144 135 - 145 mmol/L Potassium, pl 4.4 3.3 - 4.9 mmol/L [facility] Chloride 113(H) 97 - 110 mmol/L [facility] CO2 22 22 - 32 mmol/L [facility] Anion gap 9 2 - 15 mmol/L [facility] BUN 24 6 - 25 mg/dL [facility] Creatinine 1.30 0.80 - 1.30 mg/dL [facility] Glucose 168 70 - 199 mg/dL [facility] Comment: Interpretive Data Fasting glucose >/= 126 mg/dl is diagnostic for diabetes. ?? Fasting is defined as no caloric intake for at least 8 hours. Fasting glucose between 100 mg/dl to 125 mg/dl is diagnostic of prediabetes. In a patient with classic symptoms of hyperglycemia or hyperglycemic crisis, a random glucose >/= 200 mg/dl is diagnostic for diabetes. In the absence of unequivocal hyperglycemia, results should be confirmed by repeat testing. The classification and Diagnosis of Diabetes Diabetes Care 2021; 46: S19-S40. Current interpretive data was last revised 2022. Calcium 8.4(L) 8.5 - 10.3 mg/dL [facility] Blood 10/04/2024 8:49 PM HOGSHEAD OPENER 10/04/2024 9:06 PM HOGSHEAD OPENER us James Robles MD LAB BLOOD ORDERABLES Final Resu lt [facility] One [facility] Department [place] [address] * (ABNORMAL) Urinalysis reflex to microscopic and culture Urine (10/04/2024 1:30 PM HOGSHEAD OPENER) Color, ur Straw Yellow Clarity, ur Clear Clear [facility] Specific gravity, ur 1.028 1.003 - 1.030 [facility] pH, urine 6.0 [facility] Comment: Interpretive Data ? Urine pH is affected by diet, medications, systemic acid-base disturbances, and renal tubular function. ??pH may affect urinary stone formation. ??For example, urine pH below 6.0 may help reduce the tendency for calcium phosphate stones and pH greater than 6.0 may reduce the tendency for uric acid stone formation. Source: [facility] Talknote Current Interpretive Data was last revised on 2017 Protein, ur ql 1+(A) Negative [facility] Glucose, ur ql Negative Negative [facility] Ketones, ur Negative Negative [facility] Bilirubin, ur Negative Negative [facility] Blood, ur 3+(A) Negative [facility] Urobilinogen, ur <2.0 <2.0 mg/dL [facility] Nitrite, ur Negative Negative [facility] Leukocyte esterase, ur Negative Negative [facility] UA reflex comment Reflex to microscopic UA will be performed. [facility] Urine 10/04/2024 1:30 PM HOGSHEAD OPENER 10/04/2024 4:16 PM HOGSHEAD OPENER Tamanna Porras NP LAB MICROBIOLOGY - GENERAL ORDER TALYA Final Result Performing Organization Address [facility] de Phone Number [facility] Department [place] [address] * (ABNORMAL) Urinalysis, microscopic only (10/04/2024 1:30 PM HOGSHEAD OPENER) WBC, ur 0-5 0 - 5 /HPF RBC, ur >50(A) 0 - 2 /HPF [facility] Epithelial cells, squamous, ur 1-5 0 - 5 /HPF [facility] Mucous, ur Present(A) [facility] Culture Reflex Comment Reflex conditions for urine culture (WBC >10) not met. [facility] Urine 10/04/2024 1:30 PM HOGSHEAD OPENER 10/04/2024 4:15 PM HOGSHEAD OPENER us Tamanna Porras NP LAB URINE ORDERABLES Final Resul t Performing Organization Address [facility] de Phone Number [facility] Department [place] [address] * (ABNORMAL) Lactate, whole blood (10/04/2024 12:12 PM HOGSHEAD OPENER) Lactate, bld 3.7(H) 0.7 - 2.0 mmol/L Blood 10/04/2024 12:1 2 PM HOGSHEAD OPENER 10/04/2024 12:22 PM HOGSHEAD OPENER us Tamanna Porras NP LAB BLOOD ORDERABLES Final Resul t Performing Organization Address [facility] de Phone Number [facility] Department [place] [address] * (ABNORMAL) Troponin I high-sensitivity 2-hour (10/04/2024 12:06 PM HOGSHEAD OPENER) Pathologist [facility] Trop I hs 132(H) <=35 ng/L Comment: Interpretive Data For further hscTnI resources including the diagnostic algorithm and an aid in interpretation, copy and paste this link: https://bjhlab.testcatalog.org/show/hsTrop-[email or web address] Current Interpretive Data last revised 2020. Trop I hs pct delta -9 % [facility] Trop I hs interp Equivocal [facility] Blood 10/04/2024 12:0 6 PM HOGSHEAD OPENER 10/04/2024 12:30 PM HOGSHEAD OPENER Geraldine Leary SHRIMP PEELING MACHINE OPERATOR LAB BLOOD ORDERABLES Final Result [facility] One [facility] Department [place] [address] * Influenza A/B, RSV, and COVID-19 PCR Nasopharyngeal (10/04/2024 9:06 AM HOGSHEAD OPENER) [facility] COVID-19 RNA Negative Negative [facility] Influenza A RNA Negative Negative [facility] Influenza B RNA Negative Negative [facility] RSV RNA Negative Negative [facility] Comment: Interpretive data: Testing performed by [facility] ([phone]). This test is performed using the [employer] Xpert Xpress CoV-2/Flu/RSV plus assay. This is a multiplex, real-time reverse transcriptase PCR assay intended for the qualitative detection of nucleic acid from SARS-CoV-2, influenza A, influenza B, and respiratory syncytial virus. This assay has been cleared by the [place] Food and Drug administration. The performance characteristics have been verified by the [facility]. ??Results must be considered in the clinical context, and a negative result does not rule out infection. Interpretive Data last revised 2023 Nasopharyngeal 10/04/2024 9: 06 AM HOGSHEAD OPENER 10/04/2024 10:22 AM HOGSHEAD OPENER Narrative [facility]O [facility] - 10/04/2024 11:17 AM HOGSHEAD OPENER Is the Patient experiencing symptoms consistent with COVID?->Unknown Geraldine Leary NP LAB MICROBIOLOGY - GE NERAL ORDERABLES Final Result Performing Organization Address [facility] Co de Phone Number [facility] [place] [address] [facility] * (ABNORMAL) Troponin I high-sensitivity series (baseline, 2hr, 4hr, 6hr) (10/04/2024 9:06 AM HOGSHEAD OPENER) Pathologist [facility] Trop I hs 145(H) <=35 ng/L Comment: Interpretive Data For further hscTnI resources including the diagnostic algorithm and an aid in interpretation, copy and paste this link: https://bjhlab.testcatalog.org/show/hsTrop-[email or web address] Current Interpretive Data last revised 2020. Blood 10/04/2024 9:06 AM HOGSHEAD OPENER 10/04/2024 9:58 AM HOGSHEAD OPENER Geraldine Leary NP LAB BLOOD ORDERABLES Final Result Performing Organization Address [facility] Co de Phone Number [facility] [place] [address] * (ABNORMAL) Lactate (10/04/2024 9:06 AM HOGSHEAD OPENER) [facility] Lactate 4.1(C) 0.7 - 2.0 mmol/L Blood 10/04/2024 9:06 AM HOGSHEAD OPENER 10/04/2024 9:58 AM HOGSHEAD OPENER Geraldine Leary NP LAB BLOOD ORDERABLES Final Result Performing Organization Address [facility] Co de Phone Number [facility] [place] [address] * Critical Result Callback Chemistry (10/04/2024 9:06 AM HOGSHEAD OPENER) Date Notified [id number] Time Notified 1024 [facility] TestName Lactate REYNALDO MAHARAJ Called/Read Back Arin JACOBS [facility] Credentials RN REYNALDO MAHARAJ Called By NEAL MAHARAJ Blood 10/04/2024 9:06 AM HOGSHEAD OPENER 10/04/2024 9:58 AM HOGSHEAD OPENER Geraldine Leary SHRIMP PEELING MACHINE OPERATOR LAB BLOOD ORDERABLES Final Result [facility] Department [place] [address] * eGFR (10/03/2024 10:36 PM HOGSHEAD OPENER) eGFR 61 >=60 mL/min/1. 73 m2 Comment: Interpretive Data Reference Interval Normal ?>/= 90 mL/min/1.73m2 Mildly decreased* ? 60 - 89 mL/min/1.73m2 Mildly to moderately decreased ?45 - 59 mL/min/1.73m2 Moderately to severely decreased ??30 - 44 mL/min/1.73m2 Severely decreased ?15 - 29 mL/min/1.73m2 Kidney Failure ?< 15 ??mL/min/1.73m2 *Relative to young adult level Estimated glomerular filtration rate is determined by the 2020 CKD-EPI equation recommended by the National Kidney Foundation (A Unifying Approach to GFR Estimation: Recommendations of the NKF-ASK Task Force on Reassessing the Inclusion of Race in Diagnosing Kidney Disease, JASN 2020). The CKD-EPI equation should not be used for patients with unstable renal function and has not been validated in children and those over 70. Current interpretive data was last reviewed 2021. Blood 10/03/2024 10:3 6 PM HOGSHEAD OPENER 10/03/2024 10:52 PM HOGSHEAD OPENER James Robles MD LAB BLOOD ORDERABLES Final Resu lt Performing Organization Address City/[facility]/ZIP Co de Phone Number [facility] Department [place] [address] * (ABNORMAL) Basic metabolic panel (10/03/2024 10:36 PM HOGSHEAD OPENER) [facility] Sodium 142 135 - 145 mmol/L Potassium, pl 4.4 3.3 - 4.9 mmol/L [facility] Chloride 113(H) 97 - 110 mmol/L [facility] CO2 22 22 - 32 mmol/L [facility] Anion gap 7 2 - 15 mmol/L [facility] BUN 17 6 - 25 mg/dL [facility] Creatinine 1.23 0.80 - 1.30 mg/dL [facility] Glucose 162 70 - 199 mg/dL [facility] Comment: Interpretive Data Fasting glucose >/= 126 mg/dl is diagnostic for diabetes. ?? Fasting is defined as no caloric intake for at least 8 hours. Fasting glucose between 100 mg/dl to 125 mg/dl is diagnostic of prediabetes. In a patient with classic symptoms of hyperglycemia or hyperglycemic crisis, a random glucose >/= 200 mg/dl is diagnostic for diabetes. In the absence of unequivocal hyperglycemia, results should be confirmed by repeat testing. The classification and Diagnosis of Diabetes Diabetes Care 2021; 46: S19-S40. Current interpretive data was last revised 2022. Calcium 8.1(L) 8.5 - 10.3 mg/dL [facility] Blood 10/03/2024 10:3 6 PM HOGSHEAD OPENER 10/03/2024 10:52 PM HOGSHEAD OPENER James Robles MD LAB BLOOD ORDERABLES Final Resu lt Performing Organization Address [facility]/ZIP Co de Phone Number [facility] Department [place] [address] * (ABNORMAL) Differential, auto (10/03/2024 8:30 PM HOGSHEAD OPENER) Neutrophil abs 22.7(H) 1.5 - 6.5 K/cumm Imm gran abs 0.3(H) 0.0 - 0.1 K/cumm [facility] Lymphocyte abs 1.2 0.8 - 3.3 K/cumm [facility] Monocyte abs 2.1(H) 0.2 - 0.8 K/cumm [facility] Eosinophil abs 0.0 0.0 - 0.5 K/cumm [facility] Basophil abs 0.0 0.0 - 0.1 K/cumm [facility] Neutrophil pct 86.2 % [facility] Comment: Consistent with previous result Interpretive Data Percent cell count reference ranges are not reported, since discordance with absolute values may lead to misinterpretation of CBC data. Current Interpretive Data was last revised on 2018. Imm gran pct 1.1 % [facility] Comment: Interpretive Data Percent cell count reference ranges are not reported, since discordance with absolute values may lead to misinterpretation of CBC data. Current Interpretive Data was last revised on 2018. Lymphocyte pct 4.6 % [facility] Comment: Interpretive Data Percent cell count reference ranges are not reported, since discordance with absolute values may lead to misinterpretation of CBC data. Current Interpretive Data was last revised on 2018. Monocyte pct 8.0 % [facility] Comment: Interpretive Data Percent cell count reference ranges are not reported, since discordance with absolute values may lead to misinterpretation of CBC data. Current Interpretive Data was last revised on 2018. Eosinophil pct 0.0 % [facility] Comment: Interpretive Data Percent cell count reference ranges are not reported, since discordance with absolute values may lead to misinterpretation of CBC data. Current Interpretive Data was last revised on 2018. Basophil pct 0.1 % [facility] Comment: Interpretive Data Percent cell count reference ranges are not reported, since discordance with absolute values may lead to misinterpretation of CBC data. Current Interpretive Data was last revised on 2018. Blood 10/03/2024 8:30 PM HOGSHEAD OPENER 10/03/2024 9:05 PM HOGSHEAD OPENER James Robles MD LAB BLOOD ORDERABLES Final Resu lt [facility] Department [place] [address] * (ABNORMAL) CBC with auto differential (10/03/2024 8:30 PM HOGSHEAD OPENER) Pathologist [facility] WBC 26.3(H) 3.8 - 9.9 K/cumm Hgb 11.3(L) 13.0 - 17.5 g/dL [facility] Hct 33.7(L) 38.9 - 50.3 % [facility] Plt 302 150 - 400 K/cumm [facility] MPV 10.4 9.1 - 12.3 fL [facility] RBC 3.61(L) 4.30 - 5.80 M/cumm [facility] MCV 93.4 81.3 - 96.4 fL [facility] MCH 31.3 27.1 - 33.3 pg [facility] MCHC 33.5 32.3 - 35.7 g/dL [facility] RDW CV 13.2 11.1 - 14.9 % [facility] RDW SD 45.1 35.7 - 48.1 fL [facility] NRBC abs 0.00 0.00 - 0.01 K/cumm [facility] Blood 10/03/2024 8:30 PM HOGSHEAD OPENER 10/03/2024 9:05 PM HOGSHEAD OPENER James Robles MD LAB BLOOD ORDERABLES Final Resu lt [facility] One [facility] Department [place] [address] * eGFR (10/03/2024 8:25 PM HOGSHEAD OPENER) Pathologist [facility] eGFR 60 >=60 mL/min/1. 73 m2 Comment: Interpretive Data Reference Interval Normal ?>/= 90 mL/min/1.73m2 Mildly decreased* ? 60 - 89 mL/min/1.73m2 Mildly to moderately decreased ?45 - 59 mL/min/1.73m2 Moderately to severely decreased ??30 - 44 mL/min/1.73m2 Severely decreased ?15 - 29 mL/min/1.73m2 Kidney Failure ?< 15 ??mL/min/1.73m2 *Relative to young adult level Estimated glomerular filtration rate is determined by the 2020 CKD-EPI equation recommended by the National Kidney Foundation (A Unifying Approach to GFR Estimation: Recommendations of the NKF-ASK Task Force on Reassessing the Inclusion of Race in Diagnosing Kidney Disease, JASN 2020). The CKD-EPI equation should not be used for patients with unstable renal function and has not been validated in children and those over 70. Current interpretive data was last reviewed 2021. Blood 10/03/2024 8:25 PM HOGSHEAD OPENER 10/03/2024 9:05 PM HOGSHEAD OPENER us James Robles MD LAB BLOOD ORDERABLES Final Resu lt [facility] One [facility] Department [place] [address] * (ABNORMAL) Basic metabolic panel (10/03/2024 8:25 PM HOGSHEAD OPENER) Sodium 143 135 - 145 mmol/L Potassium, pl 4.1 3.3 - 4.9 mmol/L [facility] Chloride 113(H) 97 - 110 mmol/L [facility] CO2 20(L) 22 - 32 mmol/L [facility] Anion gap 10 2 - 15 mmol/L [facility] BUN 17 6 - 25 mg/dL [facility] Creatinine 1.25 0.80 - 1.30 mg/dL [facility] Glucose 163 70 - 199 mg/dL [facility] Comment: Interpretive Data Fasting glucose >/= 126 mg/dl is diagnostic for diabetes. ?? Fasting is defined as no caloric intake for at least 8 hours. Fasting glucose between 100 mg/dl to 125 mg/dl is diagnostic of prediabetes. In a patient with classic symptoms of hyperglycemia or hyperglycemic crisis, a random glucose >/= 200 mg/dl is diagnostic for diabetes. In the absence of unequivocal hyperglycemia, results should be confirmed by repeat testing. The classification and Diagnosis of Diabetes Diabetes Care 202; 46: S19-S40. Current interpretive data was last revised 2022. Calcium 8.0(L) 8.5 - 10.3 mg/dL [facility] Blood 10/03/2024 8:25 PM HOGSHEAD OPENER 10/03/2024 9:05 PM HOGSHEAD OPENER us James Robles MD LAB BLOOD ORDERABLES Final Resu lt [facility] One [facility] Department [place] [address] * ECG 12 lead (10/03/2024 2:19 PM HOGSHEAD OPENER) Ventricular Rate EKG/Min 96 BPM [facility] Atrial Rate 96 BPM [facility] CT-Interval (MSEC) 242 ms [facility] QRS-Interval (MSEC) 110 ms [facility] QT-Interval (MSEC) 364 ms [facility] QTc 459 ms [facility] P [place] 69 degrees [facility] R [place] 76 degrees [facility] T [place] 1 degrees [facility] Diagnosis Sinus rhythm with 1st degree A-V block Nonspecific ST and T wave abnormality Abnormal ECG When compared with ECG of 10-MAY-2008 09:35, CT interval has increased Vent. rate has increased BY ??35 BPM Non-specific change in ST segment in Inferior leads ST now depressed in Anterolateral leads Nonspecific T wave abnormality now evident in Inferior leads QT has lengthened Confirmed by JACOBO CARSON M.D ([id number]) on 10/04/2024 10:42:26 AM [facility] 10/03/2024 2:19 PM HOGSHEAD OPENER 10/04/2024 10:42 AM HOGSHEAD OPENER James Robles MD ECG ORDERABLES Final Result [facility] * POCT glucose (10/03/2024 2:07 PM HOGSHEAD OPENER) Glucose, POC 128 70 - 199 mg/dL Blood 10/03/2024 2:07 PM HOGSHEAD OPENER 10/03/2024 2:07 PM HOGSHEAD OPENER James Robles MD LAB POCT ORDERABLES - DEVICE Fi nal Result [facility] Department [place] [address] * (ABNORMAL) eGFR (10/03/2024 4:58 AM HOGSHEAD OPENER) eGFR 57(L) >=60 mL/min/1. 73 m2 Comment: Interpretive Data Reference Interval Normal ?>/= 90 mL/min/1.73m2 Mildly decreased* ? 60 - 89 mL/min/1.73m2 Mildly to moderately decreased ?45 - 59 mL/min/1.73m2 Moderately to severely decreased ??30 - 44 mL/min/1.73m2 Severely decreased ?15 - 29 mL/min/1.73m2 Kidney Failure ?< 15 ??mL/min/1.73m2 *Relative to young adult level Estimated glomerular filtration rate is determined by the 2020 CKD-EPI equation recommended by the National Kidney Foundation (A Unifying Approach to GFR Estimation: Recommendations of the NKF-ASK Task Force on Reassessing the Inclusion of Race in Diagnosing Kidney Disease, JASN 2020). The CKD-EPI equation should not be used for patients with unstable renal function and has not been validated in children and those over 70. Current interpretive data was last reviewed 2021. Blood 10/03/2024 4:58 AM HOGSHEAD OPENER 10/03/2024 5:32 AM HOGSHEAD OPENER us James Robles MD LAB BLOOD ORDERABLES Final Resu lt [facility] One [facility] Department [place] [address] * (ABNORMAL) Differential, auto (10/03/2024 4:58 AM HOGSHEAD OPENER) Neutrophil abs 28.0(H) 1.5 - 6.5 K/cumm Imm gran abs 0.2(H) 0.0 - 0.1 K/cumm [facility] Lymphocyte abs 0.9 0.8 - 3.3 K/cumm [facility] Monocyte abs 1.5(H) 0.2 - 0.8 K/cumm [facility] Eosinophil abs 0.0 0.0 - 0.5 K/cumm [facility] Basophil abs 0.1 0.0 - 0.1 K/cumm [facility] Neutrophil pct 91.6 % [facility] Comment: Interpretive Data Percent cell count reference ranges are not reported, since discordance with absolute values may lead to misinterpretation of CBC data. Current Interpretive Data was last revised on 2018. Imm gran pct 0.6 % [facility] Comment: Interpretive Data Percent cell count reference ranges are not reported, since discordance with absolute values may lead to misinterpretation of CBC data. Current Interpretive Data was last revised on 2018. Lymphocyte pct 2.8 % [facility] Comment: Interpretive Data Percent cell count reference ranges are not reported, since discordance with absolute values may lead to misinterpretation of CBC data. Current Interpretive Data was last revised on 2018. Monocyte pct 4.8 % [facility] Comment: Interpretive Data Percent cell count reference ranges are not reported, since discordance with absolute values may lead to misinterpretation of CBC data. Current Interpretive Data was last revised on 2018. Eosinophil pct 0.0 % [facility] Comment: Interpretive Data Percent cell count reference ranges are not reported, since discordance with absolute values may lead to misinterpretation of CBC data. Current Interpretive Data was last revised on 2018. Basophil pct 0.2 % [facility] Comment: Interpretive Data Percent cell count reference ranges are not reported, since discordance with absolute values may lead to misinterpretation of CBC data. Current Interpretive Data was last revised on 2018. Blood 10/03/2024 4:58 AM HOGSHEAD OPENER 10/03/2024 5:32 AM HOGSHEAD OPENER James Robles MD LAB BLOOD ORDERABLES Final Resu lt [facility] One [facility] Department [place] [address] * (ABNORMAL) CBC with auto differential (10/03/2024 4:58 AM HOGSHEAD OPENER) WBC 30.5(H) 3.8 - 9.9 K/cumm Hgb 13.0 13.0 - 17.5 g/dL [facility] Hct 38.0(L) 38.9 - 50.3 % [facility] Plt 346 150 - 400 K/cumm [facility] MPV 10.2 9.1 - 12.3 fL [facility] RBC 4.14(L) 4.30 - 5.80 M/cumm [facility] MCV 91.8 81.3 - 96.4 fL [facility] MCH 31.4 27.1 - 33.3 pg [facility] MCHC 34.2 32.3 - 35.7 g/dL [facility] RDW CV 12.9 11.1 - 14.9 % [facility] RDW SD 43.0 35.7 - 48.1 fL [facility] NRBC abs 0.00 0.00 - 0.01 K/cumm [facility] Blood 10/03/2024 4:58 AM HOGSHEAD OPENER 10/03/2024 5:32 AM HOGSHEAD OPENER James Robles MD LAB BLOOD ORDERABLES Final Resu lt [facility] Department [place] [address] * (ABNORMAL) Basic metabolic panel (10/03/2024 4:58 AM HOGSHEAD OPENER) Sodium 143 135 - 145 mmol/L Potassium, pl 4.7 3.3 - 4.9 mmol/L [facility] Chloride 111(H) 97 - 110 mmol/L [facility] CO2 22 22 - 32 mmol/L [facility] Anion gap 10 2 - 15 mmol/L [facility] BUN 14 6 - 25 mg/dL [facility] Creatinine 1.29 0.80 - 1.30 mg/dL [facility] Glucose 146 70 - 199 mg/dL [facility] Comment: Interpretive Data Fasting glucose >/= 126 mg/dl is diagnostic for diabetes. ?? Fasting is defined as no caloric intake for at least 8 hours. Fasting glucose between 100 mg/dl to 125 mg/dl is diagnostic of prediabetes. In a patient with classic symptoms of hyperglycemia or hyperglycemic crisis, a random glucose >/= 200 mg/dl is diagnostic for diabetes. In the absence of unequivocal hyperglycemia, results should be confirmed by repeat testing. The classification and Diagnosis of Diabetes Diabetes Care 202; 46: S19-S40. Current interpretive data was last revised 2022. Calcium 8.3(L) 8.5 - 10.3 mg/dL [facility] Blood 10/03/2024 4:58 AM HOGSHEAD OPENER 10/03/2024 5:32 AM HOGSHEAD OPENER James Robles MD LAB BLOOD ORDERABLES Final Resu lt Performing Organization Address City/[facility]/ZIP Co de Phone Number [facility] Department [place] [address] * XR chest 1 view (Portable) (10/02/2024 9:08 PM HOGSHEAD OPENER) Anatomical Region Laterality Modality Body, Chest N/A Computed Radiogr aphy 10/03/2024 8:28 AM HOGSHEAD OPENER Impressions 10/03/2024 4:05 PM HOGSHEAD OPENER No priors available for comparison. Spinal stimulator overlies the midthoracic spine. Ill-defined airspace opacity predominantly in the left mid and upper lung as well as right midlung which may be due to aspiration and/or pneumonia. ??No pleural effusion or pneumothorax. ??Cardiomediastinal silhouette is normal accounting for rotation. Dictated by: Neftaly Le MD The radiology attending physician has personally reviewed this study, and had reviewed and/or edited this written report and agrees with it. Electronically signed by: Saturnino James MD, PHD Narrative 10/03/2024 4:05 PM HOGSHEAD OPENER EXAMINATION: 1 view chest radiograph Procedure Note Saturnino James MD PhD - 10/03/2024 EXAMINATION: 1 view chest radiograph IMPRESSION: No priors available for comparison. Spinal stimulator overlies the midthoracic spine. Ill-defined airspace opacity predominantly in the left mid and upper lung as well as right midlung which may be due to aspiration and/or pneumonia. No pleural effusion or pneumothorax. Cardiomediastinal silhouette is normal accounting for rotation. Dictated by: Neftaly Le MD The radiology attending physician has personally reviewed this study, and had reviewed and/or edited this written report and agrees with it. Electronically signed by: Saturnino James MD, PHD James Robles MD IMG XR PROCEDURES Final Result * (ABNORMAL) eGFR (10/02/2024 4:01 PM HOGSHEAD OPENER) [facility] eGFR 57(L) >=60 mL/min/1. 73 m2 Comment: Interpretive Data Reference Interval Normal ?>/= 90 mL/min/1.73m2 Mildly decreased* ? 60 - 89 mL/min/1.73m2 Mildly to moderately decreased ?45 - 59 mL/min/1.73m2 Moderately to severely decreased ??30 - 44 mL/min/1.73m2 Severely decreased ?15 - 29 mL/min/1.73m2 Kidney Failure ?< 15 ??mL/min/1.73m2 *Relative to young adult level Estimated glomerular filtration rate is determined by the 2020 CKD-EPI equation recommended by the National Kidney Foundation (A Unifying Approach to GFR Estimation: Recommendations of the NKF-ASK Task Force on Reassessing the Inclusion of Race in Diagnosing Kidney Disease, JASN 2020). The CKD-EPI equation should not be used for patients with unstable renal function and has not been validated in children and those over 70. Current interpretive data was last reviewed 2021. Blood 10/02/2024 4:01 PM HOGSHEAD OPENER 10/02/2024 4:17 PM HOGSHEAD OPENER us James Robles MD LAB BLOOD ORDERABLES Final Resu lt [facility] One [facility] Department [place] [address] * (ABNORMAL) Differential, auto (10/02/2024 4:01 PM HOGSHEAD OPENER) Neutrophil abs 14.1(H) 1.5 - 6.5 K/cumm Imm gran abs 0.1 0.0 - 0.1 K/cumm [facility] Lymphocyte abs 1.3 0.8 - 3.3 K/cumm [facility] Monocyte abs 0.7 0.2 - 0.8 K/cumm [facility] Eosinophil abs 0.0 0.0 - 0.5 K/cumm [facility] Basophil abs 0.1 0.0 - 0.1 K/cumm [facility] Neutrophil pct 86.5 % [facility] Comment: Interpretive Data Percent cell count reference ranges are not reported, since discordance with absolute values may lead to misinterpretation of CBC data. Current Interpretive Data was last revised on 2018. Imm gran pct 0.7 % [facility] Comment: Interpretive Data Percent cell count reference ranges are not reported, since discordance with absolute values may lead to misinterpretation of CBC data. Current Interpretive Data was last revised on 2018. Lymphocyte pct 8.0 % [facility] Comment: Interpretive Data Percent cell count reference ranges are not reported, since discordance with absolute values may lead to misinterpretation of CBC data. Current Interpretive Data was last revised on 2018. Monocyte pct 4.2 % [facility] Comment: Interpretive Data Percent cell count reference ranges are not reported, since discordance with absolute values may lead to misinterpretation of CBC data. Current Interpretive Data was last revised on 2018. Eosinophil pct 0.2 % [facility] Comment: Interpretive Data Percent cell count reference ranges are not reported, since discordance with absolute values may lead to misinterpretation of CBC data. Current Interpretive Data was last revised on 2018. Basophil pct 0.4 % [facility] Comment: Interpretive Data Percent cell count reference ranges are not reported, since discordance with absolute values may lead to misinterpretation of CBC data. Current Interpretive Data was last revised on 2018. Blood 10/02/2024 4:01 PM HOGSHEAD OPENER 10/02/2024 4:17 PM HOGSHEAD OPENER us James Robles MD LAB BLOOD ORDERABLES Final Resu lt [facility] One [facility] Department [place] [address] * (ABNORMAL) CBC with auto differential (10/02/2024 4:01 PM HOGSHEAD OPENER) WBC 16.3(H) 3.8 - 9.9 K/cumm Hgb 12.7(L) 13.0 - 17.5 g/dL [facility] Hct 38.7(L) 38.9 - 50.3 % [facility] Plt 255 150 - 400 K/cumm [facility] MPV 9.8 9.1 - 12.3 fL [facility] RBC 4.10(L) 4.30 - 5.80 M/cumm [facility] MCV 94.4 81.3 - 96.4 fL [facility] MCH 31.0 27.1 - 33.3 pg [facility] MCHC 32.8 32.3 - 35.7 g/dL [facility] RDW CV 12.9 11.1 - 14.9 % [facility] RDW SD 44.5 35.7 - 48.1 fL [facility] NRBC abs 0.00 0.00 - 0.01 K/cumm [facility] Blood 10/02/2024 4:01 PM HOGSHEAD OPENER 10/02/2024 4:17 PM HOGSHEAD OPENER James Robles MD LAB BLOOD ORDERABLES Final Resu lt Performing Organization Address [facility] de Phone Number [facility] [place] [address] * (ABNORMAL) aPTT (10/02/2024 4:01 PM HOGSHEAD OPENER) aPTT 27(L) 28 - 38 sec Comment: Interpretive Data Heparin therapeutic range: 66.0 - 100.0 seconds. Range based on correlation with therapeutic heparin activity range of 0.3 - 0.7 Units/mL. Current interpretive data was last revised on 2023. Blood 10/02/2024 4:01 PM HOGSHEAD OPENER 10/02/2024 4:16 PM HOGSHEAD OPENER James Robles MD LAB BLOOD ORDERABLES Final Resu lt Performing Organization Address [facility] Co de Phone Number [facility] [place] [address] * Protime-INR (10/02/2024 4:01 PM HOGSHEAD OPENER) PT 12.4 9.7 - 13.0 sec INR 1.14 0.90 - 1.20 [facility] Comment: Interpretive data Oral anticoagulant therapeutic ranges: Venous thromboembolism prophylaxis or treatment: 2.0-3.0 CARDIOLOGY Standard range: 2.0-3.0 High-intensity range: 2.5-3.5 Refer to indication-specific guidelines for appropriate target ranges for prosthetic heart valve replacement. Current interpretive data was last revised on 2019. Blood 10/02/2024 4:01 PM HOGSHEAD OPENER 10/02/2024 4:16 PM HOGSHEAD OPENER James Robles MD LAB BLOOD ORDERABLES Final Resu lt Performing Organization Address City/[facility] Co de Phone Number [facility] [place] [address] * Phosphorus (10/02/2024 4:01 PM HOGSHEAD OPENER) Pathologist [facility] Phosphorus, pl 2.4 2.3 - 4.5 mg/dL Blood 10/02/2024 4:01 PM HOGSHEAD OPENER 10/02/2024 4:17 PM HOGSHEAD OPENER James Robles MD LAB BLOOD ORDERABLES Final Resu lt Performing Organization Address [facility] de Phone Number [facility] [place] [address] * Magnesium (10/02/2024 4:01 PM HOGSHEAD OPENER) Magnesium 1.9 1.4 - 2.5 mg/dL Blood 10/02/2024 4:01 PM HOGSHEAD OPENER 10/02/2024 4:17 PM HOGSHEAD OPENER Result [facility] James Robles MD LAB BLOOD ORDERABLES Final Resu lt Performing Organization Address [facility] de Phone Number [facility] [place] [address] * (ABNORMAL) Comprehensive metabolic panel (10/02/2024 4:01 PM HOGSHEAD OPENER) Sodium 141 135 - 145 mmol/L Potassium, pl 4.2 3.3 - 4.9 mmol/L [facility] Chloride 112(H) 97 - 110 mmol/L [facility] CO2 22 22 - 32 mmol/L [facility] Anion gap 7 2 - 15 mmol/L [facility] BUN 16 6 - 25 mg/dL [facility] Creatinine 1.30 0.80 - 1.30 mg/dL [facility] Glucose 118 70 - 199 mg/dL [facility] Comment: Interpretive Data Fasting glucose >/= 126 mg/dl is diagnostic for diabetes. ?? Fasting is defined as no caloric intake for at least 8 hours. Fasting glucose between 100 mg/dl to 125 mg/dl is diagnostic of prediabetes. In a patient with classic symptoms of hyperglycemia or hyperglycemic crisis, a random glucose >/= 200 mg/dl is diagnostic for diabetes. In the absence of unequivocal hyperglycemia, results should be confirmed by repeat testing. The classification and Diagnosis of Diabetes Diabetes Care 2021; 46: S19-S40. Current interpretive data was last revised 2022. Calcium 8.3(L) 8.5 - 10.3 mg/dL [facility] Bilirubin, total 0.2 0.1 - 1.2 mg/dL [facility] Protein, pl 5.5(L) 6.5 - 8.5 g/dL [facility] Albumin 3.4(L) 3.5 - 5.0 g/dL [facility] Alk phos 64 40 - 130 Units/L [facility] ALT 19 7 - 55 Units/L [facility] AST 21 10 - 50 Units/L [facility] Blood 10/02/2024 4:01 PM HOGSHEAD OPENER 10/02/2024 4:17 PM HOGSHEAD OPENER us James Robles MD LAB BLOOD ORDERABLES Final Resu lt [facility] One [facility] [place] [address] * (ABNORMAL) POC Blood Gas and Chemistries, Arterial - (10/02/2024 2:30 PM HOGSHEAD OPENER) pH, Art POC 7.31(L) 7.35 - 7.45 pCO2, Art POC 41 35 - 45 mmHg [facility] pO2, Art POC 264(H) 83 - 108 mmHg [facility] Na, POC 140 135 - 145 mmol/L [facility] K POC 4.0 3.3 - 4.9 mmol/L [facility] Comment: Interpretive Data Not all point of care methods assess for hemolysis. Confirm with instrument and retest K+ if not consistent with clinical signs and symptoms. Current Interpretive Data was last revised on 2024. Cl, POC 111(H) 97 - 110 mmol/L [facility] Ionized Ca, POC 4.86 4.50 - 5.10 mg/dL [facility] Glucose, POC 104 70 - 199 mg/dL [facility] Lactate, POC 1.1 0.7 - 2.2 mmol/L [facility] SO2 (cas) arterial 100(H) 90 - 95 % [facility] Base excess, POC -5.4 mmol/L [facility] Hct, POC 37.0(L) 41.4 - 51.6 % [facility] Total Hb, POC 12.4(L) 13.8 - 17.2 g/dL [facility] Blood 10/02/2024 2:30 PM HOGSHEAD OPENER 10/02/2024 2:30 PM HOGSHEAD OPENER James Robles MD LAB POCT ORDERABLES - DEVICE Fi nal Result Performing Organization Address City/[facility]/ZIP Co de Phone Number [facility] One [facility] Department [place] [address] * FL Fluoroscopy < 1 Hour (10/02/2024 2:00 PM HOGSHEAD OPENER) Narrative [facility] - 10/03/2024 5:04 PM HOGSHEAD OPENER The images from this study are not interpreted by Radiology. ??Please refer to the physician's procedure / OR operative note. us James Robles MD IMG FLUOROSCOPY PROCEDURES Cammy l Result Performing Organization Address City/[facility]/ZIP Co de Phone Number [facility] * Surgical pathology (10/02/2024 12:15 PM HOGSHEAD OPENER) Soft tissue 10/02/2024 12:1 5 PM HOGSHEAD OPENER 10/02/2024 3:15 PM HOGSHEAD OPENER Narrative 10/06/2024 2:00 PM HOGSHEAD OPENER [facility] [place] [address] NEUROPATHOLOGY REPORT FINAL Patient Name:LILI DELGADOAddress:[address] [place] [address] CTService:NeurosurgeryAccession #:[id number], [place] ??[address]Rewsufau:[facility] OR POD 5Taken:10/02/2024Gender: MMRN :[id number]:4DOB:1950 (Age: 74)Hospital #:[id number]:10/02/2024atient Type:[facility] InpatientReported:10/06/2024 ? Physician(s): Abelardo Tijerina M.D. DIAGNOSIS: Soft tissue, arachnoid cyst wall, excision ? - Fragments of paucicellular tissue, consistent with an arachnoid cyst wall (see comment) [facility]/10/05/2024 09:33 By this signature, I attest that the above diagnosis is based upon my personal examination of the slides(and/or other material indicated in the diagnosis). Dejan Menjivar M.D.Report Electronically Reviewed and Signed Out By ??Dejan Menjivar M.D. ??10/06/2024 14:00:03 Microscopic Description and Comment: H&E stained sections show fragments of paucicellular fibrous tissue suggestive of a cyst wall. An TALI immunohistochemical stain (single antibody procedure with appropriate controls) is faintly positive along the wall. Comment: The collective morphologic and immunohistochemical findings, in conjunction with imaging findings, are consistent with the wall of an arachnoid cyst. ?Axel Mixon M.D. ?History: The patient is a 74-year-old man with thoracic myelopathy. ??Operative procedure : ??Fusion spinal posterior lumbar/thoracic with instrumentation T3-5, laminectomy thoracic decompression, spinal cord monitoring Specimen(s) Received: A: Archnoid cyst wall Gross Description: Received in formalin labeled with patient identifiers and arachnoid cyst wall are two irregular and frayed sheets of membranous white-pink tissue (0.9 x 0.4 x 0.2 cm in aggregate). ??The specimen is submitted entirely in cassette A1. ??Jar 0 ? bao2/10/02/2024 17:18 ?ANNE MARIE Luevano ? By this signature, I attest that the above diagnosis is based upon my personal examination of the slides(and/or other material). ? Surgical Pathology report is available electronically in [employer]. The performance characteristics of some immunohistochemical stains, fluorescence in-situ hybridization tests and immunophenotyping by flow cytometry cited in this report (if any) were determined by the Surgical Pathology Department at [facility] as part of an ongoing rn clinical quality program and in compliance with federally mandated regulations drawn from the Clinical Laboratory Improvement Act of 1988 (CLIA '88). ??Some of these tests rely on the use of analyte specific reagents and are subject to specific labeling requirements by the US Food and Drug Administration. ??Such diagnostic tests may only be performed in a facility that is certified by the Department of Health and Human Services as a high complexity laboratory under CLIA '88. ??The FDA has determined that such clearance or approval is not necessary. ??This test is used for clinical purposes. ??It should not be regarded as investigational or for research. ??Nevertheless, federal rules concerning the medical use of analyte specific reagents require that the following disclaimer be attached to the report: This test was developed and its performance characteristics determined by the Surgical Pathology Department of [facility]. ??It has not been cleared or approved by the U. S. Food and Drug Administration. James Robles MD LAB PATHOLOGY ORDERABLES Final Result * (ABNORMAL) POC Blood Gas and Chemistries, Arterial - (10/02/2024 10:43 AM HOGSHEAD OPENER) pH, Art POC 7.32(L) 7.35 - 7.45 pCO2, Art POC 41 35 - 45 mmHg [facility] pO2, Art POC 239(H) 83 - 108 mmHg [facility] Na, POC 141 135 - 145 mmol/L [facility] K POC 4.0 3.3 - 4.9 mmol/L [facility] Comment: Interpretive Data Not all point of care methods assess for hemolysis. Confirm with instrument and retest K+ if not consistent with clinical signs and symptoms. Current Interpretive Data was last revised on 2024. Cl, POC 112(H) 97 - 110 mmol/L [facility] Ionized Ca, POC 4.92 4.50 - 5.10 mg/dL [facility] Glucose, POC 97 70 - 199 mg/dL [facility] Lactate, POC 1.0 0.7 - 2.2 mmol/L [facility] SO2 (cas) arterial 100(H) 90 - 95 % [facility] Base excess, POC -4.7 mmol/L [facility] Hct, POC 35.0(L) 41.4 - 51.6 % [facility] Total Hb, POC 11.8(L) 13.8 - 17.2 g/dL [facility] Blood 10/02/2024 10:4 3 AM HOGSHEAD OPENER 10/02/2024 10:43 AM HOGSHEAD OPENER us James Robles MD LAB POCT ORDERABLES - DEVICE Fi nal Result [facility] One [facility] Department [place] [address] * Arterial Line (10/02/2024 8:32 AM HOGSHEAD OPENER) Narrative Vance Morales MD - 10/02/2024 8:32 AM HOGSHEAD OPENER Vance Morales MD ? 10/02/2024 ??8:32 AM Arterial Line Patient location: OR Indication: continuous blood pressure monitoring and blood sampling needed Staff: Supervising provider: Marimar Carr MD PhD Placed by: Resident: Vance Morales MD Procedure prep: Prep solution: chlorhexadine/alcohol Prep: provider hat/mask and sterile gloves Arterial line: Catheter size: 20 gauge Catheter length: 1 and 3/4 inch Catheter type: wire-guided catheter Seldinger technique: yes Laterality: right Site: radial artery Line secured: tape and Tegaderm Results: good waveform and good blood return Number of attempts: 1 Assessment: Events: patient tolerated procedure well with no complications Marimar Carr MD PhD ANESTHESIA ORDERABLES Final Result * Airway (10/02/2024 8:31 AM HOGSHEAD OPENER) Narrative Vance Morales MD - 10/02/2024 8:31 AM HOGSHEAD OPENER Vance Morales MD ? 10/02/2024 ??8:32 AM Airway Patient location: OR Urgency: elective Indications for airway management: anesthesia Difficult airway: no Staff: Supervising provider: Marimar Carr MD PhD Placed by: Resident: Vance Morales MD Emergent airway documentation: Risks and benefits discussed: yes Consent obtained: yes Consent given by: patient Airway prep: Preoxygenated: yes Patient position: sniffing Mask difficulty assessment: 0 - not attempted Spontaneous ventilation during airway: absent Sedation level during airway: GA Final airway details: Final airway type: endotracheal airway Tube type: ETT ETT size: 8.0 mm Cuffed: yes Technique used for successful ETT placement: video laryngoscopy Insertion site: oral Blade type: Ramon Video blade type: Fox Blade size: 3 Cormack-Lehane (video): grade I - full view of glottis Cuff inflated with: air ETT to teeth: 23 cm Placement verified by: auscultation and CO2 detection Airway secured with: silk tape Number of attempts: 1 Planned trial extubation: yes Marimar Carr MD PhD ANESTHESIA ORDERABLES Final Result * Type and screen (10/02/2024 6:18 AM HOGSHEAD OPENER) Ramu, indirect Negative ABO Rh B Negative [facility] Blood 10/02/2024 6:18 AM HOGSHEAD OPENER 10/02/2024 6:26 AM HOGSHEAD OPENER Narrative [facility] - 10/02/2024 7:28 AM HOGSHEAD OPENER Has the patient had Daratumumab or Isatuximab in the past 6 months?->Unknown Sully Archer SHRIMP PEELING MACHINE OPERATOR LAB BLOOD BANK TEST ORDER TALYA Final Result Performing Organization Address [facility] de Phone Number [facility] [place] [address] * TYPE AND SCREEN 14 DAY (09/13/2024 11:37 AM CDT) Pathologist [facility] ABO Rh B Negative Ramu, indirect Negative [facility] Blood 09/13/2024 11:3 7 AM CDT 09/13/2024 1:50 PM CDT Narrative [facility] - 09/13/2024 3:22 PM CDT Has the patient had Daratumumab or Isatuximab in the past 6 months?->Unknown Is this test being ordered in advance for a procedure?->Yes Expected date of procedure:->10/02/24 Has the patient been transfused in the past 3 months?->No Sully Archer SHRIMP PEELING MACHINE OPERATOR LAB BLOOD BANK TEST ORDER TALYA Final Result Performing Organization Address [facility] de Phone Number [facility] Department [place] [address] * (ABNORMAL) eGFR (09/13/2024 11:37 AM CDT) Pathologist [facility] eGFR 46(L) >=60 mL/min/1. 73 m2 Comment: Interpretive Data Reference Interval Normal ?>/= 90 mL/min/1.73m2 Mildly decreased* ? 60 - 89 mL/min/1.73m2 Mildly to moderately decreased ?45 - 59 mL/min/1.73m2 Moderately to severely decreased ??30 - 44 mL/min/1.73m2 Severely decreased ?15 - 29 mL/min/1.73m2 Kidney Failure ?< 15 ??mL/min/1.73m2 *Relative to young adult level Estimated glomerular filtration rate is determined by the 2020 CKD-EPI equation recommended by the National Kidney Foundation (A Unifying Approach to GFR Estimation: Recommendations of the NKF-ASK Task Force on Reassessing the Inclusion of Race in Diagnosing Kidney Disease, JASN 2020). The CKD-EPI equation should not be used for patients with unstable renal function and has not been validated in children and those over 70. Current interpretive data was last reviewed 2021. Blood 09/13/2024 11:3 7 AM CDT 09/13/2024 1:48 PM CDT James Robles MD LAB BLOOD ORDERABLES Final Resu lt [facility] Department [place] [address] * (ABNORMAL) Differential, auto (09/13/2024 11:37 AM CDT) Neutrophil abs 6.9(H) 1.5 - 6.5 K/cumm Imm gran abs 0.1 0.0 - 0.1 K/cumm [facility] Lymphocyte abs 2.2 0.8 - 3.3 K/cumm [facility] Monocyte abs 1.2(H) 0.2 - 0.8 K/cumm [facility] Eosinophil abs 0.1 0.0 - 0.5 K/cumm [facility] Basophil abs 0.0 0.0 - 0.1 K/cumm [facility] Neutrophil pct 66.1 % [facility] Comment: Interpretive Data Percent cell count reference ranges are not reported, since discordance with absolute values may lead to misinterpretation of CBC data. Current Interpretive Data was last revised on 2018. Imm gran pct 0.5 % [facility] Comment: Interpretive Data Percent cell count reference ranges are not reported, since discordance with absolute values may lead to misinterpretation of CBC data. Current Interpretive Data was last revised on 2018. Lymphocyte pct 20.7 % [facility] Comment: Interpretive Data Percent cell count reference ranges are not reported, since discordance with absolute values may lead to misinterpretation of CBC data. Current Interpretive Data was last revised on 2018. Monocyte pct 11.8 % [facility] Comment: Interpretive Data Percent cell count reference ranges are not reported, since discordance with absolute values may lead to misinterpretation of CBC data. Current Interpretive Data was last revised on 2018. Eosinophil pct 0.5 % [facility] Comment: Interpretive Data Percent cell count reference ranges are not reported, since discordance with absolute values may lead to misinterpretation of CBC data. Current Interpretive Data was last revised on 2018. Basophil pct 0.4 % [facility] Comment: Interpretive Data Percent cell count reference ranges are not reported, since discordance with absolute values may lead to misinterpretation of CBC data. Current Interpretive Data was last revised on 2018. Blood 09/13/2024 11:3 7 AM CDT 09/13/2024 1:36 PM CDT James Robles MD LAB BLOOD ORDERABLES Final Resu lt [facility] Department [place] [address] * CPAP aPTT algorithm (09/13/2024 11:37 AM CDT) aPTT 30 28 - 38 sec Comment: Interpretive Data Heparin therapeutic range: 66.0 - 100.0 seconds. Range based on correlation with therapeutic heparin activity range of 0.3 - 0.7 Units/mL. Current interpretive data was last revised on 2023. Blood 09/13/2024 11:3 7 AM CDT 09/13/2024 1:35 PM CDT us Sully Archer [employer]PERATOR LAB BLOOD ORDERABLES Cammy l [facility] Department [place] [address] * (ABNORMAL) Urinalysis reflex to microscopic and culture Urine, clean voided (09/13/2024 11:37 AM CDT) Color, ur Straw Yellow Clarity, ur Clear Clear [facility] Specific gravity, ur 1.016 1.003 - 1.030 [facility] pH, urine 5.5 [facility] Comment: Interpretive Data ? Urine pH is affected by diet, medications, systemic acid-base disturbances, and renal tubular function. ??pH may affect urinary stone formation. ??For example, urine pH below 6.0 may help reduce the tendency for calcium phosphate stones and pH greater than 6.0 may reduce the tendency for uric acid stone formation. Source: [facility] [employer] Current Interpretive Data was last revised on 2017 Protein, ur ql Trace Negative [facility] Glucose, ur ql Negative Negative [facility] Ketones, ur Negative Negative [facility] Bilirubin, ur Negative Negative [facility] Blood, ur 1+(A) Negative [facility] Urobilinogen, ur <2.0 <2.0 mg/dL [facility] Nitrite, ur Negative Negative [facility] Leukocyte esterase, ur Negative Negative [facility] UA reflex comment Reflex to microscopic UA will be performed. [facility] Urine, clean voided 09/13/2024 11:37 AM CDT 09/13/2024 1:37 PM CDT us James Robles MD LAB MICROBIOLOGY - GENERAL [facility] JEFFERY Final Result Performing Organization Address [facility]/ZIP Co de Phone Number [facility] Department [place] [address] * (ABNORMAL) CBC with auto differential (09/13/2024 11:37 AM CDT) WBC 10.4(H) 3.8 - 9.9 K/cumm Hgb 14.0 13.0 - 17.5 g/dL [facility] Hct 42.7 38.9 - 50.3 % [facility] Plt 254 150 - 400 K/cumm [facility] MPV 10.5 9.1 - 12.3 fL [facility] RBC 4.47 4.30 - 5.80 M/cumm [facility] MCV 95.5 81.3 - 96.4 fL [facility] MCH 31.3 27.1 - 33.3 pg [facility] MCHC 32.8 32.3 - 35.7 g/dL [facility] RDW CV 12.7 11.1 - 14.9 % [facility] RDW SD 44.9 35.7 - 48.1 fL [facility] NRBC abs 0.00 0.00 - 0.01 K/cumm [facility] Blood 09/13/2024 11:3 7 AM CDT 09/13/2024 1:36 PM CDT James Robles MD LAB BLOOD ORDERABLES Final Resu lt Performing Organization Address City/[facility]/ZIP Co de Phone Number [facility] [place] [address] * Vitamin D 25 hydroxy (09/13/2024 11:37 AM CDT) Pathologist [facility] Vitamin D 25-OH 30 30 - 80 ng/mL Blood 09/13/2024 11:3 7 AM CDT 09/13/2024 1:34 PM CDT James Robles MD LAB BLOOD ORDERABLES Final Resu lt [facility] [place] [address] * (ABNORMAL) Urinalysis, microscopic only (09/13/2024 11:37 AM CDT) WBC, ur 6-10(A) 0 - 5 /HPF RBC, ur 21-50(A) 0 - 2 /HPF [facility] Epithelial cells, squamous, ur 1-5 0 - 5 /HPF [facility] Mucous, ur Present(A) [facility] Culture Reflex Comment Reflex conditions for urine culture (WBC >10) not met. [facility] Urine, clean voided 09/13/2024 11:37 AM CDT 09/13/2024 1:37 PM CDT James Robles MD LAB URINE ORDERABLES Final Resu lt Performing Organization Address [facility] Co de Phone Number [facility] [place] [address] * aPTT (09/13/2024 11:37 AM CDT) aPTT 30 28 - 38 sec Comment: Interpretive Data Heparin therapeutic range: 66.0 - 100.0 seconds. Range based on correlation with therapeutic heparin activity range of 0.3 - 0.7 Units/mL. Current interpretive data was last revised on 2023. Blood 09/13/2024 11:3 7 AM CDT 09/13/2024 1:35 PM CDT Result [facility] James Robles MD LAB BLOOD ORDERABLES Final Resu lt Performing Organization Address [facility] Co de Phone Number [facility] [place] [address] * Protime-INR (09/13/2024 11:37 AM CDT) PT 11.0 9.7 - 13.0 sec INR 1.02 0.90 - 1.20 [facility] Comment: Interpretive data Oral anticoagulant therapeutic ranges: Venous thromboembolism prophylaxis or treatment: 2.0-3.0 CARDIOLOGY Standard range: 2.0-3.0 High-intensity range: 2.5-3.5 Refer to indication-specific guidelines for appropriate target ranges for prosthetic heart valve replacement. Current interpretive data was last revised on 2019. Blood 09/13/2024 11:3 7 AM CDT 09/13/2024 1:35 PM CDT James Robles MD LAB BLOOD ORDERABLES Final Resu lt [facility] Department [place] [address] * (ABNORMAL) Basic metabolic panel (09/13/2024 11:37 AM CDT) Sodium 144 135 - 145 mmol/L Potassium, pl 3.8 3.3 - 4.9 mmol/L [facility] Chloride 105 97 - 110 mmol/L [facility] CO2 25 22 - 32 mmol/L [facility] Anion gap 14 2 - 15 mmol/L [facility] BUN 16 6 - 25 mg/dL [facility] Creatinine 1.55(H) 0.80 - 1.30 mg/dL [facility] Glucose 67(L) 70 - 199 mg/dL [facility] Comment: Interpretive Data Fasting glucose >/= 126 mg/dl is diagnostic for diabetes. ?? Fasting is defined as no caloric intake for at least 8 hours. Fasting glucose between 100 mg/dl to 125 mg/dl is diagnostic of prediabetes. In a patient with classic symptoms of hyperglycemia or hyperglycemic crisis, a random glucose >/= 200 mg/dl is diagnostic for diabetes. In the absence of unequivocal hyperglycemia, results should be confirmed by repeat testing. The classification and Diagnosis of Diabetes Diabetes Care 2021; 46: S19-S40. Current interpretive data was last revised 2022. Calcium 9.9 8.5 - 10.3 mg/dL [facility] Blood 09/13/2024 11:3 7 AM CDT 09/13/2024 1:34 PM CDT James Robles MD LAB BLOOD ORDERABLES Final Resu lt Performing Organization Address [facility]/ZIP Co de Phone Number [facility] Department [place] [address] from Last 3 Months Insurance MEDICARE [facility] Address: [address] [place] [address] MEDICARE [facility] Advance Directives For more information, please contact: [phone] * Full Code (Latest Code Status on File) Date Activated Date Inactivated Comments 10/02/2024 7:33 PM 10/14/2024 6:47 PM Care Teams [employer] Relationship Specialty Start Date End Date Sj Benson MD [address] [place] [address] PCP - General Family Medicine 07/05/24
--- OUTSIDE RECORDS SUMMARY | 2024-11-14 16:22 | XMS_ITS | Data Portability ---
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 red blood cells 0.0 % -0 Not Available [facility] (Lab) [address] [place], [address], 10/25/2023 14:55:41 10/25/20 23 10/25/2023 CBC/C OMPLE TE BLD COUNT W/DIF F NRBC# 0.00 x10'3 /uL Not Available [facility] (Lab) [address] [place], [address], 10/25/2023 14:55:41 10/25/20 23 10/25/2023 COMPR EHENS ABIGAIL METAB OLIC PANEL sodium 140 mmol/ L 137-14 [address] [facility] (Lab) [address] [place], [address], 10/25/2023 15:05:02 10/25/20 23 10/25/2023 COMPR EHENS ABIGAIL METAB OLIC PANEL potassium 4.4 mmol/ L 3.5-5. 1 Not Available [facility] (Lab) [address] [place], [address], 10/25/2023 15:05:02 10/25/20 23 10/25/2023 COMPR EHENS ABIGAIL METAB OLIC PANEL chloride 105 mmol/ L 98-107 Not Available [facility] (Lab) [address] [place], [address], 10/25/2023 15:05:02 10/25/20 23 10/25/2023 COMPR EHENS ABIGAIL METAB OLIC PANEL carbon dioxide 26 mmol/ L 22-30 Not Available [facility] (Lab) [address] [place], [address], 10/25/2023 15:05:02 10/25/20 23 10/25/2023 COMPR EHENS ABIGAIL METAB OLIC PANEL anion gap 13.4 mmol/ L 14-22 low Not Available [facility] (Lab) [address] [place], [address], 10/25/2023 15:05:02 10/25/20 23 10/25/2023 COMPR EHENS ABIGAIL METAB OLIC PANEL glucose 106 mg/dL 70-99 high Not Available [facility] (Lab) [address] [place], [address], 10/25/2023 15:05:02 10/25/20 23 10/25/2023 COMPR EHENS ABIGAIL METAB OLIC PANEL BUN 19 mg/dL 8-[address] [facility] (Lab) [address] [place], [address], 10/25/2023 15:05:02 10/25/20 23 10/25/2023 COMPR EHENS ABIGAIL METAB OLIC PANEL creatinine 1.57 mg/dL 0.66-1 .25 high Not Available [facility] (Lab) [address] [place], [address], 10/25/2023 15:05:02 10/25/20 23 10/25/2023 COMPR EHENS ABIGAIL METAB OLIC PANEL GFR 43 Refer ence Range : [place] ge GFR Healt hy Adult : >60 mL/mi n/1.7 3 m2 Chron ic Kidne y Disea se: 15-60 mL/mi n/1.7 3 m2 Kidne y Failu re: <15/m L/min /1.73 m2 www.n iddk. [facility].g ov The MDRD study equat ion has not been valid ated in child christine <18 years of age; pregn ant women ; the elder ly >85 years of age; or in some racia l or ethni c subgr oups, such as Hispa nics. Outsi de the valid ated madisyn eters , estim ated GFR is less accur ate, requi ring clini stef judgm ent on a case- by-ca se basis . Clini stef inter preta tion for other races and ages must be made by the clini wiley. The MDRD study equat ion has not been valid ated for the evalu ation of serum creat inine relat ed to nutri sosa l statu s or medic ation usage . For perso ns <18 years of age, a pedia tric GFR calcu lator is avail able on the [facility] websi te: https :[email or web address] jensen.[email or web address] casey.o candelaria/pr ofess ional s/kdo qi/gf r_cal culat or Not Available [facility] (Lab) [address] [place], [address], 10/25/2023 15:05:02 10/25/20 23 10/25/2023 COMPR EHENS ABIGAIL METAB OLIC PANEL alkaline phosphatase 68 U/L 38-126 Not Available [facility] (Lab) [address] [place], [address], 10/25/2023 15:05:02 10/25/20 23 10/25/2023 COMPR EHENS ABIGAIL METAB OLIC PANEL alanine aminotransfe rase 20 U/L 0-50 Not Available [facility] (Lab) [address] [place], [address], 10/25/2023 15:05:02 10/25/20 23 10/25/2023 COMPR EHENS ABIGAIL METAB OLIC PANEL aspartate aminotransfe rase 21 U/L 15-46 Not Available [facility] (Lab) [address] [place], [address], 10/25/2023 15:05:02 10/25/20 23 10/25/2023 COMPR EHENS ABIGAIL METAB OLIC PANEL bilirubin, total 0.60 mg/dL 0.20-1 .[address] [facility] (Lab) [address] [place], [address], 10/25/2023 15:05:02 10/25/20 23 10/25/2023 COMPR EHENS ABIGAIL METAB OLIC PANEL calcium 9.6 mg/dL 8.4-10 .[address] [facility] (Lab) [address] [place], [address], 10/25/2023 15:05:02 10/25/20 23 10/25/2023 COMPR EHENS ABIGAIL METAB OLIC PANEL total protein 6.8 g/dL 6.3-8. [address] [facility] (Lab) [address] [place], [address], 10/25/2023 15:05:02 10/25/20 23 10/25/2023 COMPR EHENS ABIGAIL METAB OLIC PANEL albumin 4.2 g/dL 3.0-4. [address] [facility] (Lab) [address] [place], [address], 10/25/2023 15:05:02 10/25/20 23 10/25/2023 COMPR EHENS ABIGAIL METAB OLIC PANEL globulin 2.6 g/dL 2.6-4. [address] [facility] (Lab) [address] [place], [address], 10/25/2023 15:05:02 10/25/20 23 10/25/2023 COMPR EHENS ABIGAIL METAB OLIC PANEL A/G ratio 1.6 ratio 1.0-2. [address] [facility] (Lab) [address] [place], [address], 10/25/2023 15:05:02 10/25/20 23 10/25/2023 LIPID PANEL cholesterol 191 mg/dL 140-19 9 [facility] [place] NSUS RECOM MENDA TION FOR JOO STERO L: ADULT CHILD LOW RISK: <200 <170 BORDE RLINE : <200- 239 ----- HIGH RISK: >240 >[address] [facility] (Lab) [address] [place], [address], 10/25/2023 15:05:04 10/25/20 23 10/25/2023 LIPID PANEL triglyceride s 146 mg/dL 0-150 NIH [place] NSUS REPOR T RECOM MENDA TION FOR TRIGL YCERI JOJO: ADULT CHILD LOW RISK: <150 ----- BODER LINE: 150-1 99 ----- HIGH RISK: >200 ----- Not Available [facility] (Lab) [address] [place], [address], 10/25/2023 15:05:04 10/25/2010/25/2023 LIPID PANEL HDL cholesterol 45 mg/dL 40- Not Available [facility] (Lab) [address] [place], [address], 10/25/2023 15:05:04 10/25/2010/25/2023 LIPID PANEL LDL cholesterol, calculated 117 mg/dL 0-130 [facility] [place] NSUS REPOR T RECOM MENDA TIONS FOR LDL: ADULT CHILD LOW RISK <130 <110 (OPTI MAL LDL) <100 ----- BORDE RLINE : 130-1 59 ----- HIGH RISK: >160 >130 A TRIGL YCERI DE RESUL T >400 INVAL IDATE S THE CALCU LATIO N FOR LDL FRACT IONAT ION - THE LDL RESUL T WILL NOT BE REPOR BE. Not Available [facility] (Lab) [address] [place], [address], 10/25/2023 15:05:04 10/25/20 23 10/25/2023 TSH W/REF BENJAMIN FT4 TSH with reflex free T4 3.180 uIU/m L 0.465- 4.[address] [facility] (Lab) [address] [place], [address], 10/25/2023 15:29:22 10/25/20 23 10/25/2023 PSA SCREE N PSA medicare screen 1.68 NG/mL 0.00-4 .[address] [facility] (Lab) [address] [place], [address], 10/25/2023 15:29:26 10/25/20 23 10/25/2023 HEMOG LOBIN A1C HA1C 5.6 % 4.0-6. 0 Diabe prema Scree jeremi Crite sofy: <5.7% Consi stent with absen ce of diabe prema 5.7-6 .4% Consi stent with incre ased risk for diabe rpema (pred iabet es) >OR=6 .5% Consi stent with diabe prema REFER ENCE: Diabe prema Care 2016, 39([place] ppl.1 ):s13 -s22 Not Available [facility] (Lab) [address] [place], [address], 10/25/2023 16:02:18 10/25/20 23 10/25/2023 VITAM IN B12 (MELANIE EDUARDO ) vb12 675 pg/mL 239-93 [address] [facility] (Lab) [address] [place], [address], 10/25/2023 16:09:05 10/25/20 23 10/25/2023 URINA LYSIS W/REF BENJAMIN CULTU RE color LIGHT- YELLOW Not Available [facility] (Lab) [address] [place], [address], 10/25/2023 16:32:29 10/25/20 23 10/25/2023 URINA LYSIS W/REF BENJAMIN CULTU RE clarity CLEAR Not Available [facility] (Lab) [address] [place], [address], 10/25/2023 16:32:29 10/25/20 23 10/25/2023 URINA LYSIS W/REF BENJAMIN CULTU RE sp grav 1.025 1.001- 1.[address] [facility] (Lab) [address] [place], [address], 10/25/2023 16:32:29 10/25/20 23 10/25/2023 URINA LYSIS W/REF BENJAMIN CULTU RE pH 5.0 pH_un its 5.0-9. 0 Not Available [facility] (Lab) [address] [place], [address], 10/25/2023 16:32:29 10/25/20 23 10/25/2023 URINA LYSIS W/REF BENJAMIN CULTU RE leukocytes NEGATI VE ari/u L negati ve- Not Available [facility] (Lab) [address] [place], [address], 10/25/2023 16:32:29 10/25/20 23 10/25/2023 URINA LYSIS W/REF BENJAMIN CULTU RE nitrite NEGATI VE negati ve- Not Available [facility] (Lab) [address] [place], [address], 10/25/2023 16:32:29 10/25/20 23 10/25/2023 URINA LYSIS W/REF BENJAMIN CULTU RE protein 15 mg/dL negati ve-15 abnormal Not Available [facility] (Lab) [address] [place], [address], 10/25/2023 16:32:29 10/25/20 23 10/25/2023 URINA LYSIS W/REF BENJAMIN CULTU RE glucose NORMAL mg/dL normal - Not Available [facility] (Lab) [address] [place], [address], 10/25/2023 16:32:29 10/25/20 23 10/25/2023 URINA LYSIS W/REF BENJAMIN CULTU RE ketones NEGATI VE mg/dL negati ve- Not Available [facility] (Lab) [address] [place], [address], 10/25/2023 16:32:29 10/25/20 23 10/25/2023 URINA LYSIS W/REF BENJAMIN CULTU RE urobilinogen NORMAL mg/dL normal -[address] [facility] (Lab) [address] [place], [address], 10/25/2023 16:32:29 10/25/20 23 10/25/2023 URINA LYSIS W/REF BENJAMIN CULTU RE bilirubin NEGATI VE mg/dL negati ve- Not Available [facility] (Lab) [address] [facility] [place] [place], [address], 10/25/2023 16:32:29 10/25/20 23 10/25/2023 URINA LYSIS W/REF BENJAMIN CULTU RE blood 10 lilli/u L negati ve- abnormal Not Available [facility] (Lab) [address] [place], [address], 10/25/2023 16:32:29 10/25/20 23 10/25/2023 URINA LYSIS W/REF BENJAMIN CULTU RE white blood cells 9-20 per_h pf 0-8 abnormal Not Available [facility] (Lab) [address] [facility] [place] [place], [address], 10/25/2023 16:32:29 10/25/20 23 10/25/2023 URINA LYSIS W/REF BENJAMIN CULTU RE red blood cells 5-10 per_h pf 0-4 abnormal Not Available [facility] (Lab) [address] [place], [address], 10/25/2023 16:32:29 10/25/20 23 10/25/2023 URINA LYSIS W/REF BENJAMIN CULTU RE bacteria FEW per_h pf Not Available [facility] (Lab) [address] [place], [address], 10/25/2023 16:32:29 10/25/20 23 10/25/2023 URINA LYSIS W/REF BENJAMIN CULTU RE epithelial cells PRESEN T abnormal Not Available [facility] (Lab) [address] [place], [address], 10/25/2023 16:32:29 10/25/20 23 10/25/2023 URINA LYSIS W/REF BENJAMIN CULTU RE mucus FEW abnormal Not Available [facility] (Lab) [address] [place], [address], 10/25/2023 16:32:29 10/25/20 23 10/25/2023 URINA LYSIS W/REF BENJAMIN CULTU RE casts NONE none seen- Not Available [facility] (Lab) [address] [place], [address], 10/25/2023 16:32:29 10/25/20 23 10/25/2023 URINA LYSIS W/REF BENJAMIN CULTU RE crystals NONE none seen- Not Available [facility] (Lab) [address] [place], [address], 10/25/2023 16:32:29 10/25/20 23 10/25/2023 URINA LYSIS W/REF BENJAMIN CULTU RE yeast NONE SEEN none seen- abnormal Not Available [facility] (Lab) [address] [place], [address], 10/25/2023 16:32:29 10/25/20 23 10/25/2023 VITAM IN B12 (MELANIE EDUARDO ) vb12 675 pg/mL 239-[address] [facility] (Lab) [address] [place], [address], 10/25/2023 17:08:37 10/25/20 23 10/25/2023 FOLAT E, SERUM /PLAS MA folate 6.61 NG/mL 2.76-2 0.[address] [facility] (Lab) [address] [place], [address], 10/25/2023 17:08:43 10/25/20 23 10/25/2023 VITAM IN D 25-HY DROXY vd25oh 39.7 NG/mL 30-100 Vitam in D Statu s: Defic ient: <20 ng/mL Insuf ficie nt: 20-29 ng/mL Suffi cient : 30-10 0 ng/mL Not Available [facility] (Lab) [address] [place], [address], 10/25/2023 17:08:53 06/11/20 23 06/11/2023 MRI, lumba r spine , w/o contr ast No observ ation record ed. [email or web address] [facility] [address] [place], [address], 10/25/2023 09:54:51 06/11/20 23 06/11/2023 XR, lumba r spine No observ ation record ed. [email or web address] [facility] [address] [place], [address], 10/25/2023 09:54:51 06/25/20 23 06/25/2023 MRI, thora cic spine , w/o contr ast No observ ation record ed. [email or web address] [facility] [address] [place], [address], 10/25/2023 09:54:51 09/02/20 09/01/2023 MRI, cervi stef spine , w/o contr ast No observ ation record ed. [email or web address] [facility] [address], [place], [address], 10/25/2023 09:54:51 05/04/20 24 US ABD multi ple organ s [facility] [address], [place] [address] [phone] Patien t Name: LILI DELGADO ion #: [id number] Sex: M : 1949 3 Dictat ed By: Elena Perry Attend ing Physic nathan: CHRIS BENSON Orderi ng Physic nathan: CHRIS BENSON Exam Date: 2023 08:54 AM Exam Name: US ABDOME N MULTIP LE ORGANS Admitt ing Diagno sis(es ): INDICA TION: Pain. TECHNI QUE: Multip le real-t sultana sonogr aphic images of the abdome n were obtain ed. COMPAR HADLEY: None FINDIN GS: The liver is increa sed in echoge nicity . The liver measur es 18 cm which is enlarg ed. No intrah epatic biliar y ductal dilata tion is noted. The gallbl adder wall measur es 0.2 cm and is unrema rkable . No gallst ones or sludge is seen. The common duct measur es 0.4 cm and is unrema rkable . No perich olecys tic fluid is noted. The right kidney measur es 11.5 cm. No hydron ephros is. There is a 1.2 cm right renal cyst. The left kidney measur es 14.9cm which is enlarg ed. No hydron ephros is. There are bilate ral renal cysts with the larges t in the right kidney measur ing 1.2 cm in the larges t in the left kidney measur ing 8.2 cm. The spleen measur es 10.2 cm, within normal limits . The echoge nicity is within normal limits . The pancre as is not well visual ized due to obscur ation from bowel gas. The visual ized portio ns of the IVC and aorta are grossl y unrema rkable . IMPRES AURELIO: 1. Hepati c steato sis. Mild hepato megaly . 2. Bilate ral renal cysts the larges t measur ing 8.3 cm in the left kidney . Page 1 [facility] [address] [facility] [place] [address] Patien t Name: LILI DELGADO ion #: [id number] Sex: M : 1949 3 Dictat ed By: Elena Perry Attend ing Physic nathan: VIVIANA ELLIOTT Orderi ng Physic nathan: CHRIS BENSON Exam Date: 2023 08:54 AM Exam Name: US ABDOME N MULTIP LE ORGANS Admitt ing Diagno sis(es ): Electr onical ly Signed by: Elena Perry at 2023 10:29: 39 AM Page [address] (Imaging) [address] [place], [address], 05/16/2024 14:13:24 05/16/20 24 05/16/2024 XR, chest , 2 view No observ ation record ed. [address] [address], [place], [address], 05/16/2024 16:27:02 05/16/20 24 05/16/2024 CT, abdom en + pelvi s, w/ contr ast No observ ation record ed. [address] [facility], [place], [address], 05/17/2024 12:32:57 10/17/20 24 10/17/2024 CT, abdom en + pelvi s, w/ contr ast No observ ation record ed. [address] [address], [place], [address], 10/17/2024 15:39:43 10/20/20 24 10/17/2024 CT, abdom en + pelvi s, w/ contr ast No observ ation record ed. [email or web address] [facility] [address], [place], [address], 10/21/2024 08:08:12 11/06/20 24 11/06/2024 CT, abdom en + pelvi s, w/ contr ast No observ ation record ed. [email or web address] [facility] [address], [place], [address], 11/06/2024 15:04:01 Result Notes None recorded. Problems Name Problem SNOMED Code Status Onset Date Resolution Date Notes Provider Name and Address Organization Details Recorded Time Electrocar diogram abnormal 739133706 Active 2020 Not Available [employer] 3 18:21:22 Deep venous thrombosis of upper extremity 122640181 Active 2020 Not Available [facility] 3 18:21:22 Chronic back pain 205521047 Active 2016 Not Available [facility] 3 18:21:22 Localized, primary osteoarthr itis of the pelvic region and thigh 344590916 Active Not Available [facility] 3 18:21:22 Osteoarthr itis of hip 234728496 Active 2016 Not Available [facility] 3 18:21:22 Lumbar spondylosi s 178259681 Active 2016 Not Available [facility] 3 18:21:23 Benign prostatic hyperplasi a without outflow obstructio n 188376804 Active 2019 Not Available [facility] 3 18:21:23 Gastroesop hageal reflux disease without esophagiti s 638600635 Active 2019 Not Available [facility] 3 18:21:23 Pain in right hip joint 1093546562656 02 Active 2016 Not Available [facility] 3 18:21:23 Sinusitis 60555772 Active 2021 Not Available [facility] 3 18:21:23 Elevated blood-pres sure reading without diagnosis of hypertensi on 809695135 Active 2018 Not Available [facility] 3 18:21:23 Neuropathy 408122991 Active 2016 Not Available [facility] 3 18:21:23 Thoracic spondylosi s 089711177 Active 2016 Not Available [facility] 3 18:21:23 Obesity 594421157 Active 2018 Not Available [facility] 3 18:21:23 Chronic kidney disease stage 3 458346052 Active 2016 Not Available [facility] 3 18:21:23 Hyperlipid emia 64616728 Active 2020 Not Available [facility] 3 18:21:23 Prediabete s 449307094 Active 2016 Not Available [facility] 3 18:21:23 Cyst of kidney 466597381 Active 2019 Not Available [facility] 3 18:21:24 Irritable bowel syndrome 75678639 Active 2022 Sj Benson MD [address] [address], [place], [address] , [employer] 3 11:59:10 Open wound of lower leg 817182317 Active 2023 Sj Benson MD [address] [address], [place], [address] , [employer] 4 10:44:52 Abdominal pain 06306722 Active 2023 Sj Benson MD [address] [facility], [place], [address] , [employer] 4 15:06:47 Left upper quadrant pain 351176619 Active 2023 Sj Benson MD [address], [place], [address] , [employer] 4 14:30:40 Problem Notes None recorded. Procedures Surgical History Date Name Laterality Status Provider Name and Address Organization Details Recorded Time 4 Medicare Wellness CPT Code, subsequent completed Nella Salas RN [place] - [facility] 04/10/2024 10:23:03 Imaging Results Imaging Date Name Status [facility]Modified by [facility] Details LastModified Time 06/11/2023 MRI, lumbar spine, w/o contrast completed [address] [place], [address], 10/25/2023 09:54:51 06/11/2023 XR, lumbar spine completed [email or web address] [place], [address], 10/25/2023 09:54:51 06/25/2023 MRI, thoracic spine, w/o contrast completed [address] [place], [address], 10/25/2023 09:54:51 09/01/2023 MRI, cervical spine, w/o contrast completed [address] [place], [address], 10/25/2023 09:54:51 05/04/2024 US ABD multiple organs completed [address] (Imaging) [address] [place], [address], 05/16/2024 14:13:24 05/16/2024 XR, chest, [address], [address], 05/16/2024 16:27:02 05/16/2024 CT, abdomen + pelvis, w/ contrast completed [address], [address], 05/17/2024 12:32:57 10/17/2024 CT, abdomen + pelvis, w/ contrast completed [address], [address], 10/17/2024 15:39:43 10/17/2024 CT, abdomen + pelvis, w/ contrast completed [address] [facility] [address], [place], [address], 10/21/2024 08:08:12 11/06/2024 CT, abdomen + pelvis, w/ contrast completed [address] [facility] [address], [place], [address], 11/06/2024 15:04:01 Procedure Notes None recorded. Medical Equipment None Reported. Allergies Allergen ID Allergen Name Allergen Category Reaction Reaction Severity Criticality Documentation Date Start Date Code Code System Note Provider Name and Address Organization Details Recorded Time 65681 Substance with sulfonami de structure and antibacte rial mechanism of action (substanc e) medicatio n Not available Not available Not available 01/20/2023 [id number] SNOMED Not Available [facility] 18:22:26 Medications Name Sig Start Date Stop Date Status Note LastModified by Organization Details LastModified Time senna s 8.6-50mg tablets TAKE 1 TABLET BY MOUTH TWICE DAILY 04/10 completed Not Available Not Available Not Available cyclobenz aprine 10 mg tablet TAKE 1 TABLET BY MOUTH THREE TIMES DAILY NEEDED active Not Available Not Available No t Available prednison e 10 mg tablet Take 1 tablet every day by oral route as directed for 7 days. active Take 40mg on day 1,2; Than 20mg on day 3,4; Than 10mg on day 5,6,7. Take with food, do not take on empty stomach. Not Available Not Available Not Available doxycycli ne hyclate 100 mg capsule 03/15 completed Not Available Not Available Not Available azithromy karine 250 mg tablet TAKE 2 TABLETS (500 MG) BY ORAL ROUTE ONCE DAILY FOR 1 DAY THEN 1 TABLET (250 MG) BY ORAL ROUTE ONCE DAILY FOR 4 DAYS active Not Available Not Available No t Available hydrocodo ne 5 mg-acetam inophen 325 mg tablet 1 {tbl} every 6 hours by oral route. 09/02 completed Not Available Not Available Not Available promethaz ine 6.25 mg-codein e 10 mg/5 mL syrup Take 5 mL EVERY 6 HOURS by oral route prn cough active Not Available Not Available No t Available meclizine 12.5 mg tablet Take 1 tablet every 6-8 hours by oral route as needed for 10 days. active Not Available Not Available No t Available ciproflox acin 500 mg tablet 09/23 completed Not Available Not Available Not Available tramadol 50 mg tablet TAKE 1 TABLET BY MOUTH EVERY DAY active Not Available Not Available No t Available bethanech ol chloride 25 mg tablet TAKE 1 TABLET BY MOUTH TWICE DAILY 08/13 completed Not Available Not Available Not Available meloxicam 7.5 mg tablet 7.5 mg every other day by oral route. 08/04 completed Not Available Not Available Not Available famotidin e 20 mg tablet Take 1 tablet twice a day by oral route as needed for 90 days. 05/17 completed Not Available Not Available Not Available tamsulosi n 0.4 mg capsule TAKE 1 CAPSULE BY MOUTH EVERY DAY AT BEDTIME 2023 active Not Available Not Available Not Avai lable baclofen 10 mg tablet TAKE 1 TABLET BY MOUTH TWICE DAILY active Not Available Not Available No t Available benzonata te 100 mg capsule TK 1 C PO TID FOR 7 DAYS PRN 11/02 completed Not Available Not Available Not Available doxycycli ne monohydra te 100 mg capsule TAKE 1 CAPSULE BY MOUTH TWICE DAILY FOR 10 DAYS 10/25 completed Not Available Not Available Not Available cephalexi n 500 mg capsule TAKE 1 CAPSULE BY MOUTH THREE TIMES DAILY 05/16 completed Not Available Not Available Not Available pantopraz ole 40 mg tablet,de layed release TAKE 1 TABLET BY MOUTH EVERY DAY IN THE MORNING 05/17 completed Not Available Not Available Not Available hyoscyami ne 0.125 mg sublingua l tablet Place 1 tablet every 8 hours by sublingu al route as needed for 90 days. 2022 active Not Available Not Available Not Avai lable lidocaine 5 % topical patch APPLY 1 PATCH BY TRANSDER MAL ROUTE ONCE D. WEAR DURING THE DAY TIME AND REMOVE AT NIGHT. active PRN Not Available Not Available No t Available ascorbic acid (vitamin C) 100 mg tablet 100 mg by oral route. 08/04 completed Not Available Not Available Not Available docusate sodium 100 mg capsule 100 mg twice a day by oral route. 09/05 completed Not Available Not Available Not Available gabapenti n 300 mg capsule TAKE 1 CAPSULE BY MOUTH FOUR TIMES DAILY active Not Available Not Available No t Available omeprazol e 20 mg capsule,d elayed release Take 20 mg by oral route. 09/30 completed Not Available Not Available Not Available gabapenti n 100 mg capsule Take 2 capsules every day by oral route as directed for 30 days. active Take 2 pills twice a day. Not Available Not Available Not Available Cheratuss in AC 10 mg-100 mg/5 mL oral liquid Take 10 mL every 8 hours by oral route as needed for 5 days. 03/15 completed Not Available Not Available Not Available levofloxa karine 500 mg tablet TAKE 1 TABLET BY MOUTH DAILY 09/23 completed Not Available Not Available Not Available levofloxa karine 750 mg tablet TAKE 1 TABLET BY MOUTH EVERY 24 HOURS FOR 10 DAYS 08/13 completed Not Available Not Available Not Available finasteri de 5 mg tablet TAKE 1 TABLET BY MOUTH DAILY active Not Available Not Available No t Available amoxicill in 875 mg-potass ium clavulana te 125 mg tablet TK 1 T PO Q 12 H FOR 7 DAYS active Not Available Not Available No t Available oxycodone 5 mg tablet TAKE 1 TABLET BY MOUTH EVERY 6 HOURS NEEDED FOR PAIN 04/10 completed Not Available Not Available Not Available Adult Low Dose Aspirin 81 mg tablet,de layed release Take 1 tablet every other day by oral route after meals for 90 days. 07/17 completed Not Available Not Available Not Available nitrofura ntoin monohydra te/macroc rystals 100 mg capsule TAKE 1 CAPSULE BY MOUTH TWICE DAILY 09/23 completed Not Available Not Available Not Available duloxetin e 20 mg capsule,d elayed release TK 1 C PO QD IN THE MORNING 04/16 completed Not Available Not Available Not Available duloxetin e 30 mg capsule,d elayed release Take 1 capsule twice a day by oral route as directed for 90 days. 2023 active Not Available Not Available Not Avai lable metronida zole 1 % topical gel APPLY TO FACE BID 07/17 completed Not Available Not Available Not Available Xarelto 15 mg tablet Take 1 tablet twice a day by oral route for 21 days. active Not Available Not Available No t Available Xarelto 20 mg tablet Take 1 tablet every day by oral route after meals for 90 days. active Start after finishin g 15mg BID for 21 days. Not Available Not Available Not Available Flonase Allergy Relief 50 mcg/actua tion nasal spray,[employer] [place] 1 spray every day by intranas al route as needed for 30 days. 11/02 completed Not Available Not Available Not Available duloxetin e 40 mg capsule,d elayed release TAKE 1 CAPSULE BY MOUTH EVERY DAY DIRECTED 10/25 completed Not Available Not Available Not Available naloxone 4 mg/actuat ion nasal spray CALL 911. SPR CONTENTS OF ONE SPRAYER (0.1ML) INTO ONE NOSTRIL. REPEAT IN 2-3 MIN IF SYMPTOMS OF OPIOID EMERGENC Y PERSIST, ALTERNAT E NOSTRILS active Not Available Not Available No t Available Vitals Date Recorded Body height Body mass index (BMI) Body weight Respiratory rate Heart rate Oxygen saturation Oxygen saturation in Arterial blood by Pulse oximetry Body temperature Systolic blood pressure Diastolic blood pressure Provider Name and Address Organization Details Last Updated DateTime 3 182.88 cm 29.6 kg/m2 67450.1 4 g 16 /min 68 /min 98 % 98 % 96.9 [degF] 134 mm[Hg] 76 mm[Hg] Maria Isabel Murphy RN [facility] [employer] [facility] 3 11:43:04 Date Recorded Body height Body mass index (BMI) Body weight Body temperature Respiratory rate Oxygen saturation Oxygen saturation in Arterial blood by Pulse oximetry Systolic blood pressure Diastolic blood pressure Provider Name and Address Organization Details Last Updated DateTime 3 182.88 cm 29.8 kg/m2 48601.6 7 g 97.1 [degF] 16 /min 98 % 98 % 128 mm[Hg] 76 mm[Hg] Riley Larson [facility] [employer] 3 09:51:59 Date Recorded Heart rate Provider Name an d Address Organization Details Last Updated DateTime 10/25/2023 64 /min Tiffany Payton [address] [facility], [facility] [address], [address], [facility] [employer] [facility] 10/25/2023 09:54:49 Date Recorded Body height Body mass index (BMI) Body weight Body temperature Heart rate Respiratory rate Oxygen saturation Oxygen saturation in Arterial blood by Pulse oximetry Systolic blood pressure Diastolic blood pressure Provider Name and Address Organization Details Last Updated DateTime 3 182.88 cm 30 kg/m2 126103. 91 g 98.4 [degF] 60 /min 16 /min 99 % 99 % 126 mm[Hg] 70 mm[Hg] Riley [facility] 3 10:13:20 Date Recorded Body height Body temperature Heart rate Respiratory rate Oxygen saturation Oxygen saturation in Arterial blood by Pulse oximetry Systolic blood pressure Diastolic blood pressure Provider Name and Address Organization Details Last Updated DateTime 4 182.88 cm 98 [degF] 66 /min 16 /min 99 % 99 % 130 mm[Hg] 68 mm[Hg] Stephenie Moody RN [facility] 4 10:28:20 Date Recorded Body mass index (BMI) Body weight Provider Name and Address Organization Details Last Updated DateTime 04/10/2024 29.7 kg/m2 13568.65 g Sj Benson MD [address] [place] [address], [address], [facility] [employer] [facility] 04/10/2024 10:31:02 Date Recorded Body height Body mass index (BMI) Body weight Body temperature Heart rate Respiratory rate Oxygen saturation Oxygen saturation in Arterial blood by Pulse oximetry Systolic blood pressure Diastolic blood pressure Provider Name and Address Organization Details Last Updated DateTime 4 182.88 cm 29.4 kg/m2 05642.8 9 g 98.6 [degF] 66 /min 16 /min 99 % 99 % 126 mm[Hg] 60 mm[Hg] Riley [facility] 4 14:07:27 Social History Question Answer Notes LastModified by Organizat ion Details LastModified Time Tobacco Smoking Status Never Smoker Not Available [employer] 01/20/2023 18:20:08 Do You Have An Advance Directive? No MIGRATION.[id number] Information not available 01/20/2023 What Is Your Level Of Alcohol Consumption? None MIGRATION.364091 7847 Information not available 01/20/2023 Do You Wear A Helmet When Biking? No MIGRATION.862966 5142 Information not available 01/20/2023 Are You Blind Or Do You Have Difficulty Seeing? No MIGRATION.253231 4206 Information not available 01/20/2023 What Is Your Level Of Caffeine Consumption? Occasional MIGRATION.640331 3594 Information not available 01/20/2023 How Much Tobacco Do You Chew? None MIGRATION.038904 4805 Information not available 01/20/2023 In The 14 Days Before Symptom Onset, Have You Had Close Contact With A Laboratory-confir med COVID-19 While That Case Was Ill? No MIGRATION.407033 8017 Information not available 01/20/2023 In The 14 Days Before Symptom Onset, Have You Had Close Contact With A Person Who Is Under Investigation For COVID-19 While That Person Was Ill? No MIGRATION.984397 4283 Information not available 01/20/2023 Are You Deaf Or Do You Have Serious Difficulty Hearing? No MIGRATION.242663 3533 Information not available 01/20/2023 What Type Of Diet Are You Following? REGULAR MIGRATION.341391 0128 Information not available 01/20/2023 Do You Or Have You Ever Used E-cigarettes Or Vape? Never Used Electronic Cigarettes MIGRATION.232097 7707 Information not available 01/20/2023 What Is Your Occupation? RETIRED MIGRATION.549827 3277 Information not available 01/20/2023 Have There Been Any Changes To Your Family Or Social Situation? No MIGRATION.859408 1630 Information not available 01/20/2023 Are There Any Guns Present In Your Home? No MIGRATION.934594 6603 Information not available 01/20/2023 Do You Use Insect Repellent Routinely? No MIGRATION.937270 1564 Information not available 01/20/2023 Do You Have A Medical Power Of Horticultural Farm Manager? No MIGRATION.940854 1887 Information not available 01/20/2023 What Was The Date Of Your Most Recent Tobacco Screening? 04/10/2024 Information not available 04/10/2024 Do You Have Any Pets? No MIGRATION.244470 5373 Information not available 01/20/2023 What Is Your Relationship Status? MIGRATION.651216 3795 Information not available 01/20/2023 Do You Use Your Seat Belt Or Car Seat Routinely? Yes MIGRATION.482482 1015 Information not available 01/20/2023 Do You Have Smoke And Carbon Monoxide Detectors In Your Home? Yes MIGRATION.525230 3162 Information not available 01/20/2023 Are You Passively Exposed To Smoke? No MIGRATION.128924 6604 Information not available 01/20/2023 Do You Or Have You Ever Used Smokeless Tobacco? Never Used Smokeless Tobacco MIGRATION.830966 7686 Information not available 01/20/2023 Are There Any Smokers In Your House? No MIGRATION.877226 8582 Information not available 01/20/2023 How Much Tobacco Do You Smoke? No MIGRATION.404250 9831 Information not available 01/20/2023 Do You Participate In Social [employer] Online Camp? No MIGRATION.311657 3635 Information not available 01/20/2023 Do You Feel Stressed (tense, Restless, Nervous, Or Anxious, Or Unable To Sleep At Night)? [id number] MIGRATION.042313 1447 Information not available 01/20/2023 Do You Use Any Illicit Or Recreational Drugs? No MIGRATION.717137 0328 Information not available 01/20/2023 Do You Use Sunscreen Routinely? Yes MIGRATION.584964 8801 Information not available 01/20/2023 Has Tobacco Cessation Counseling Been Provided? No MIGRATION.601511 6383 Information not available 01/20/2023 Have You Recently Traveled Abroad? No MIGRATION.155149 6214 Information not available 01/20/2023 Are You Currently In School? No MIGRATION.572121 1992 Information not available 01/20/2023 Sex: Male Functional Status Question Answer Note LastModified by Organizat ion Details LastModified Time Do you have difficulty walking or climbing stairs? No MIGRATION.3092615 026 Information not available 01/20/2023 Do you have transportation difficulties? No MIGRATION.6571706 026 Information not available 01/20/2023 Are you able to walk? YESWOREST MIGRATION.8186065 026 Information not available 01/20/2023 Do you have difficulty doing errands alone? No MIGRATION.3385234 026 Information not available 01/20/2023 Are you able to care for yourself? Yes MIGRATION.1522836 026 Information not available 01/20/2023 Do you have difficulty dressing or bathing? Yes MIGRATION.9746691 026 Information not available 01/20/2023 What is your exercise level? None MIGRATION.0607717 026 Information not available 01/20/2023 Mental Status Question Answer Note LastModified by Organizat ion Details LastModified Time Do you have difficulty concentrating, remembering or making decisions? No MIGRATION.[id number] 6 Information not available 01/20/2023 Family History Nothing Reported Notes:ADOPTED Medical History No medical history recorded. Immunizations Vaccine Type Date Status Note Provider Nam e and Address Organization Details Recorded Time Tdap 08/10/2017 completed Not Available [facility] 01/20/2023 18:22:25 Tdap 03/04/2017 completed Not Available [facility] 01/20/2023 18:22:25 Past Encounters Encounter ID Performer Location Encounter Start Date Encounter Closed Date Diagnosis/Indication Diagnosis SNOMED-CT Code Diagnosis ICD10 Code [id number] [facility] [address] [facility] [place] [place] [address] 04/01/2021 00:00:00 04/01/2021 11:25:38 [id number] [facility] [address] [facility] [place] [place] [address] 07/31/2021 00:00:00 07/31/2021 17:30:03 [id number] [facility] [address] [facility] [place] [address] 09/23/2021 00:00:00 09/23/2021 12:26:26 [id number] [facility] [address] [facility] [place] [place] [address] 09/30/2021 00:00:00 09/30/2021 09:52:46 [id number] [facility] [address] [facility] [place] [place] [address] 10/28/2021 00:00:00 10/28/2021 10:23:59 [id number] [facility] [address] [facility] [place] [address] 11/04/2021 00:00:00 11/04/2021 12:36:54 [id number] [facility] [address] [facility] [place] [address] 04/07/2022 00:00:00 04/07/2022 11:41:[id number] [address] 08/13/2022 00:00:00 08/13/2022 11:44:[id number] [address] 10/27/2022 00:00:00 10/27/2022 15:20:[id number] [address] 11/03/2022 00:00:00 11/03/2022 14:21:30 [id number] Sj Benson MD [address] [address] 05/17/2023 11:38:09 05/17/2023 12:39:39 Chronic back pain 784443080 G89.29 Lumbar spondylosis 38307 0009 M47.896 Neuropathy 063805558 G62 .9 Osteoarthritis of hip 23 7384504 M16.9 Prediabetes 706282333 R7 3.03 Obesity 931510444 E66.9 Irritable bowel syndrome 66741142 K58.9 Cyst of kidney 419248416 N28.1 Thoracic spondylosis 387 123118 M47.566 [id number] Sj Benson MD [address] [address] 10/25/2023 09:45:32 10/25/2023 10:22:25 Irritable bowel syndrome 15917196 K58.9 Chronic back pain 039320 002 G89.29 Lumbar spondylosis 14347 0009 M47.896 Neuropathy 328439328 G62 .9 Osteoarthritis of hip 23 3250503 M16.9 Prediabetes 672952256 R7 3.03 Obesity 587540516 E66.9 Cyst of kidney 299237344 N28.1 Thoracic spondylosis 387 250909 M47.814 Screening for malignant neoplasm of prostate 218047402 Z12.5 Benign pro static hyperplasia without outflow obstruction 460034053 N40.0 [id number] Sj Benson MD [facility] [address] [address] 11/10/2023 09:59:56 11/10/2023 10:37:16 Chronic back pain 027459930 G89.29 Lumbar spondylosis 13280 0009 M47.896 Neuropathy 309024013 G62 .9 Irritable bowel syndrome 68793319 K58.9 Osteoarthritis of hip 23 6142488 M16.9 Prediabetes 300398523 R7 3.03 Obesity 130967521 E66.9 Cyst of kidney 732660876 N28.1 Thoracic spondylosis 387 601677 M47.814 Benign pro static hyperplasia without outflow obstruction 790567417 N40.0 [id number] Sj Benson MD [address] [address] 04/10/2024 10:19:15 04/10/2024 10:54:05 Lumbar spondylosis 799384428 M47.896 Chronic back pain 950685 002 G89.29 Neuropathy 241638704 G62 .9 Irritable bowel syndrome 91392695 K58.9 Osteoarthritis of hip 23 4689623 M16.9 Prediabetes 123266846 R7 3.03 Obesity 676769232 E66.9 Cyst of kidney 793776416 N28.1 Thoracic spondylosis 387 206204 M47.814 Benign pro static hyperplasia without outflow obstruction 874297628 N40.0 Adult [facility] th examination 860934343 Z00.00 Screening for disorder 440218730 Z13.9 Open wound of lower leg 957468751 S81.809A [id number] Sj Benson MD [address] [address] 05/16/2024 13:58:42 05/16/2024 15:02:07 Lumbar spondylosis 946874450 M47.896 Chronic back pain 832225 002 G89.29 Neuropathy 515514628 G62 .9 Irritable bowel syndrome 52713086 K58.9 Osteoarthritis of hip 23 4683385 M16.9 Prediabetes 869102911 R7 3.03 Obesity 654379985 E66.9 Cyst of kidney 920530490 N28.1 Thoracic spondylosis 387 015666 M47.814 Benign pro static hyperplasia without outflow obstruction 576299803 N40.0 Left upper quadrant pain 182823470 R10.12 Health Concerns Section Related Observation LastModified by Organization Detai ls LastModified Time None Recorded Concern Status LastModified by Organization Details LastModified Time None Recorded Advance Directives Directive N: Payers Encounter Date Sequence Insurance Name Policy Number Policy Vlilatoro Covered Member ID Villatoro Member ID Guarantor Name 05/17/2023 1 [place] Lili F Thus [id number] 1 Lili Thus 05/17/2023 2 [place] 111 Lili F Thus [id number] Lili Thus 10/25/2023 1 [place] F Thus [id number] 1 Lili Thus 10/25/2023 2 [place] 111 Lili F Thus [id number] Lili Thus 11/10/2023 1 [place] F Thus [id number] 1 Lili Thus 11/10/2023 2 [place] 111 Lili F Thus [id number] Lili Thus 04/10/2024 1 [place] L[place] F Thus [id number] 1 Lili Thus 04/10/2024 2 [place] 111 Lili F Thus [id number] Lili Thus 05/16/2024 1 [place] L[place] F Thus [id number] 1 Lili Thus 05/16/2024 2 [place] 111 Lili F Thus [id number] Lili Thus Notes Date Note Type Note Provider Name and Address Organization Details Recorded Time 05/17/2023 text/html Pt is here for f/u on his lab and chronic conditions. Doing overall better and denies any new concern.Needs refill on his meds. Denies any problem with meds.Denies any concerns with Lt UE and he has stopped Xarelto since 01/13 and he is doing well with it.Pt is f/u with Dr. Fulton for his bladder mass and kidney cyst.Pt has a cane at home, but doesn't want to use it.Pt is f/u with Spine surgeon for his chronic low back pain and had procedure done in 09/11 for it. Doing overall better with his back pain.Pt goes to OR during winter times. Sj Benson MD [address], [place], [address], [employer] 05/17/2023 12:37:16 10/25/2023 text/html Pt is here for his annual exam and f/u on chronic conditions. Doing overall better and denies any new concern.Needs refill on his meds. Denies any problem with meds. Pt is f/u with Spine surgeon for his chronic low back pain and had procedure done in 09/11 for it. Doing overall better with his back pain.Denies any concerns with Lt UE and he has stopped Xarelto since 01/13 and he is doing well with it.Pt is f/u with Dr. Fulton (Uro) for his bladder mass and kidney cyst.Pt has a cane at home, but doesn't want to use it.Pt goes to OR during winter times. Sj Benson MD [address], [place], [address], [employer] 10/25/2023 10:17:07 11/10/2023 text/html Pt is here for f/u on his annual labs. Doing overall same as before and denies any new concern. Denies any problem with meds. Still c/o lot of low back pain and pt is f/u with Pain clinic in [place] for it. Pt is f/u with Spine surgeon for his chronic low back pain and had procedure done in 09/11 for it. Doing overall better with his back pain.Denies any concerns with Lt UE and he has stopped Xarelto since 01/13 and he is doing well with it.Pt is f/u with Dr. Fulton (Uro) for his bladder mass and kidney cyst.Pt has a cane at home, but doesn't want to use it.Pt goes to OR during winter times. Sj Benson MD [address], [place], [address], [employer] 11/10/2023 10:34:05 04/10/2024 text/html Pt is here for f/u on his meds and chronic conditions. Doing overall same as before and denies any new concern. Denies any problem with meds. C/o b/l knee abrasions happened 1 week ago when he fell down in his yard. No head trauma/LOC. No other area new pain. Pt is also due for the MAWV and wants to get it done today. Still c/o lot of low back pain and pt is f/u with Pain clinic in [place] for it. Pt is f/u with Spine surgeon for his chronic low back pain and had procedure done in 09/11 for it. Doing overall ok with his back pain. Pt says he is not a surgical candidate for any back surgery as per his Spine surgeon.Denies any concerns with Lt UE and he has stopped Xarelto since 01/13 and he is doing well with it.Pt is f/u with Dr. Fulton (Uro) for his bladder mass and kidney cyst.Pt has a cane at home, but doesn't want to use it.Pt goes to OR during winter times. Sj Benson MD [address] [facility], [place] [address], [place], [address], [place] [facility] [employer] 04/10/2024 11:11:52 05/16/2024 text/html ACV: C/o Lt UQ area pain, on/off for last 4-5 years. Pt says for last 2 weeks, its bothering him more. Pt denies any BM changes/n/v/d/d/ blood in stool. Pt has seen GI doctor for this in the past, few yrs back. Pt has chronic Lt kidney cyst and he called 2 weeks ago to get an US of his abdomen done. Pt still has b/l renal cysts, largest is on Lt - 8.3 cm. Pt is f/u with Uro at [place] for this. Denies any problem with meds. Still c/o lot of low back pain and pt is f/u with Pain clinic in [place] for it. Pt is f/u with Spine surgeon for his chronic low back pain and had procedure done in 09/11 for it. Doing overall ok with his back pain. Pt says he is not a surgical candidate for any back surgery as per his Spine surgeon.Denies any concerns with Lt UE and he has stopped Xarelto since 01/13 and he is doing well with it.Pt is f/u with Dr. Fulton (Uro) for his bladder mass and kidney cyst.Pt goes to OR during winter times. Sj Benson MD [address] [place] [address], [place], [address], [facility] [employer] 05/16/2024 14:56:58
--- OUTSIDE RECORDS SUMMARY | 2024-11-14 16:22 | XMS_ITS | Data Portability ---
Author Organization [facility] [employer], [facility] Address [address] [place] [address] Care Team Providers Care Pasting Inspector Name Role Phone SHANTA BARTLETT Referring Provider Assessment No assessment recorded. Plan of Treatment Reminders Order Date Submit Date Provider Last Modified By Organization Details Last Modified Time Details Appointments None recorded. Lab rapid SARS CoV 2 Ag, QL IA, respiratory specimen 2021 MEGHAN In-Office Order, Internal Use Only DO Not Attach Compendium DO Not Attach Compendium, Do Not Delete/merge, [id number] 15:48:35 rapid strep group A, throat 2021 MEGHAN In-Office Order, Internal Use Only DO Not Attach Compendium DO Not Attach Compendium, Do Not Delete/merge, [id number] 15:46:34 Referral None recorded. Procedures None recorded. Surgeries None recorded. Imaging None recorded. Medication Orders None recorded. Patient TargetsNo targets recorded. Patient Instructions Encounter Date Encounter Id Patient Instructions Last Modified By Organization Details Last Modified Time 09/11/2022 [id number] rest fluids symptomatic otc medication as directed as needed f/u with pcp if persists, worsens or as needed rtc prn [email or web address] Not available 09/11/2022 13:24:06 Reason for Referral None Reported. Results Created Date Observation Date Name Description Value Unit Range Abnormal Flag Note LastModifiedBy Organization Detail LastModifiedTime 09/11/2009/11/2022 rapid SARS CoV 2 Ag, QL IA, respi rator y speci men Rapid SARS COV, ANTIGEN NEGATI VE Not Available In-Office Order Internal Use Only DO Not Attach Compendium DO Not Attach Compendium, Do Not Delete/merge, [id number] 09/11/2022 13:23:01 09/11/20 22 09/11/2022 rapid SARS CoV 2 Ag, QL IA, respi rator y speci men INTERNAL CONTROL VALID Not Available In-Off ice Order Internal Use Only DO Not Attach Compendium DO Not Attach Compendium, Do Not Delete/merge, [id number] 09/11/2022 13:23:01 09/11/20 22 09/11/2022 rapid SARS CoV 2 Ag, QL IA, respi rator y speci men Is this patient's first COVID test? No Not Available In-Off ice Order Internal Use Only DO Not Attach Compendium DO Not Attach Compendium, Do Not Delete/merge, [id number] 09/11/2022 13:23:01 09/11/20 22 09/11/2022 rapid SARS CoV 2 Ag, QL IA, respi rator y speci men Is patient employed in healthcare? No Not Available In-O ffice Order Internal Use Only DO Not Attach Compendium DO Not Attach Compendium, Do Not Delete/merge, [id number] 09/11/2022 13:23:01 09/11/20 22 09/11/2022 rapid SARS CoV 2 Ag, QL IA, respi rator y speci men Is patient symptomatic of COVID-19? Yes Not Available In- Office Order Internal Use Only DO Not Attach Compendium DO Not Attach Compendium, Do Not Delete/merge, [id number] 09/11/2022 13:23:01 09/11/20 22 09/11/2022 rapid SARS CoV 2 Ag, QL IA, respi rator y speci men If yes, date of onset (mm/dd/yyyy) ? 2021 Not Available In-Office Order Internal Use Only DO Not Attach Compendium DO Not Attach Compendium, Do Not Delete/merge, [id number] 09/11/2022 13:23:01 09/11/20 22 09/11/2022 rapid SARS CoV 2 Ag, QL IA, respi rator y speci men If female, is patient ? No Not Available In-Off ice Order Internal Use Only DO Not Attach Compendium DO Not Attach Compendium, Do Not Delete/merge, [id number] 09/11/2022 13:23:01 09/11/20 22 09/11/2022 rapid SARS CoV 2 Ag, QL IA, respi rator y speci men Has patient been hospitalized due to COVID? No Not Available In-Off ice Order Internal Use Only DO Not Attach Compendium DO Not Attach Compendium, Do Not Delete/merge, [id number] 09/11/2022 13:23:01 09/11/20 22 09/11/2022 rapid SARS CoV 2 Ag, QL IA, respi rator y speci men Has patient been in ICU due to COVID? No Not Available In-Off ice Order Internal Use Only DO Not Attach Compendium DO Not Attach Compendium, Do Not Delete/merge, [id number] 09/11/2022 13:23:01 09/11/20 22 09/11/2022 rapid SARS CoV 2 Ag, QL IA, respi rator y speci men Is patient resident in congregate care setting? No Not Available In-Off ice Order Internal Use Only DO Not Attach Compendium DO Not Attach Compendium, Do Not Delete/merge, [id number] 09/11/2022 13:23:01 09/11/20 22 09/11/2022 rapid strep group A, throa t strept A neg negati ve Not Available In-Office Order Internal Use Only DO Not Attach Compendium DO Not Attach Compendium, Do Not Delete/merge, [id number] 09/11/2022 13:23:10 Result Notes None recorded. Procedures Surgical History Date Name Laterality Status Provider Name and Address Organization Details Recorded Time Back surgery completed [facility] [employer] [facility] Physician [facility], [facility] 09/11/2022 10:09:11 Colonoscopy completed [facility] Physician [facility], [facility] 09/11/2022 10:09:11 Imaging Results None recorded. Procedure Notes None recorded. Medical Equipment None Reported. Allergies Allergen ID Allergen Name Allergen Category Reaction Reaction Severity Criticality Documentation Date Start Date Code Code System Note Provider Name and Address Organization Details Recorded Time 2513668 Substance with sulfonami de structure and antibacte rial mechanism of action (substanc e) medicatio n other Not available Not available 09/11/2022 00908 0212 [facility] 10:09:10 Medications Not known to be on any medication Vitals Date Recorded Body weight Body mass index (BMI) Body height Oxygen saturation Oxygen saturation in Arterial blood by Pulse oximetry Respiratory rate Heart rate Body temperature Systolic blood pressure Diastolic blood pressure Provider Name and Address Organization Details Last Updated DateTime 2 956684. 51 g 30.1 kg/m2 182.88 cm 99 % 99 % 12 /min 59 /min 97.8 [degF] 146 mm[Hg] 82 mm[Hg] Hortensia Castillo [facility], [facility] 10:17:34 Social History Question Answer Notes LastModified by Organizat ion Details LastModified Time Tobacco Smoking Status Never Smoker Sofia knight, [facility], [facility] 09/11/2022 10:09:11 Do You Have An Advance Directive? No [email or web address] Information not available 09/11/2022 What Is Your Level Of Alcohol Consumption? None [email or web address] Information not available 09/11/2022 Is Blood Transfusion Acceptable In An Emergency? Yes [email or web address] Information not available 09/11/2022 What Is Your Level Of Caffeine Consumption? Occasional [email or web address] Information not available 09/11/2022 What Type Of Diet Are You Following? REGULAR [email or web address] Information not available 09/11/2022 What Is The Highest Grade Or Level Of School You Have Completed Or The Highest Degree You Have Received? WM52889-4 [email or web address] Information not available 09/11/2022 What Is Your Relationship Status? [email or web address] Information not available 09/11/2022 Are You Sexually Active? No Information not available 09/11/2022 Do You Or Have You Ever Used Smokeless Tobacco? Never Used Smokeless Tobacco [email or web address] Information not available 09/11/2022 Sex: Unknown Functional Status Question Answer Note LastModified by Organization D etails LastModified Time What is your exercise level? None Information not available 09/11/2022 Mental Status None recorded. Family History Nothing Reported. Medical History Condition Response Nerve Damage / Neuropathy Y Urinary Problems Y Back pain Y Immunizations Vaccine Type Date Status Note Provider Nam e and Address Organization Details Recorded Time COVID-19, mRNA, LNP-S, PF, 100 mcg/0.5mL dose or 50 mcg/0.25mL dose 02/10/2021 completed [facility]HAK[facility] [facility] [employer] 09/11/2022 10:08:56 COVID-19, mRNA, LNP-S, PF, 100 mcg/0.5mL dose or 50 mcg/0.25mL dose 03/10/2021 completed Sofia knight [place] [facility] [employer] [facility] [employer] 09/11/2022 10:08:56 Past Encounters Encounter ID Performer Location Encounter Start Date Encounter Closed Date Diagnosis/Indication Diagnosis SNOMED-CT Code Diagnosis ICD10 Code [id number] Amanda Mason MD [facility] [place] [facility] [address] [place] [address] 09/11/2022 09:12:29 09/11/2022 10:39:52 Common cold 47891837 J00 Health Concerns Section Related Observation LastModified by Organization Detai ls LastModified Time None Recorded Concern Status LastModified by Organization Details LastModified Time None Recorded Advance Directives Directive N: Payers Encounter Date Sequence Insurance Name Policy Number Policy Villatoro Covered Member ID Villatoro Member ID Guarantor Name 09/11/2022 1 [place] Ryan F Thus [id number] 1 Ryan F Thus 09/11/2022 2 [place] 111 Ryan F Thus [id number] Ryan F Thus Notes Date Note Type Note Provider Name and Address Organization Details Recorded Time 09/11/2022 text/html Acute HPIReporte d bypatient.Notes:Pt presents with c/o nasal congestion, sore throat x 2 days.denies fever, chills, SOB. denies GI or changes CORONAVIRUS SCREENING TOOL ?Are you experiencing any NEW symptom(s) listed below that is not due to another health problem ?Sore throat ?Is anyone else in your household experiencing any NEW symptoms ?Yes ?In the past 2 weeks did you have close contact (within 6 feet for at least 15 minutes) with someone with symptoms of COVID-19 or who tested positive for COVID-19 ?No ?In the past 2 weeks have you been tested for COVID-19 ?No, I have not been tested ?Why did you get tested? Please select all that apply ?N/A ?In the past 2 weeks has someone in your household tested positive for COVID-19 ?No ?Have you ever received a dose of COVID-19 vaccine?Yes ?Which vaccine product did you receive?Moderna Imported from [facility] on 09/11/2022 QUALITY MEASURE QUESTIONNAIRE ?Are you a diabetic patient ?No ?Has the Patient previously received any type of colorectal cancer screener ?Yes ?Please confirm which of the following colorectal screeners the Patient has received in the past ?Colonoscopy ?Colonoscopy Result ?Negative Imported from [facility] on 09/11/2022 Amanda Mason MD [address], [place], [address], [facility] - [facility], [facility] 09/11/2022 21:10:51
--- OUTSIDE RECORDS SUMMARY | 2024-11-14 16:23 | XMS_ITS | Encounter Summary ---
Author Organization [facility] Address [address] [place] [address] Phone Care Team Providers Care Shank Faker Name Role Phone Sj Benson MD Primary Care Provider [phone] Encounter Details Date Type Department Care Team (Late st Contact Info) Description 10/09/2024 Telephone [facility] Cardiology [facility] Advanced Medicine 8th [place] [address] [place] [address] Stephany Carver Social History Tobacco Use Types Packs/Day Years Used Date Smoking Tobacco: Never Passive Smoke Exposure: Never Smokeless Tobacco: Never AUDIT-C Answer Date Recorded Q1: How often [...] on file 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 no TYPE OF CONSULT: general CALLER'S NAME: JOSE Newell CALLER'S PAGER: [phone] PATIENT'S NAME: Ryan Delgado : 1950 C[facility]US[facility] PATIENT'S LOCATION: [id number] [address] 1 REASON FOR CONSULT: rt lower actue dvt, asing for instructions for anticoagulation and EKG today shows sinus beba w/first degree block, pt has advised of chest pain on going. ATTENDING PHYSICIAN: Dr. Robles BLACKER documented in this encounter Plan of Treatment Not on file documented as of this encounter Visit Diagnoses Not on filedocumented in this encounter Care Teams Shank Faker Relationship Specialty Start Date End Date Sj Benson MD [address] [facility] [place] [address] PCP - General Family Medicine 07/05/24 documented as of this encounter
--- OUTSIDE RECORDS SUMMARY | 2024-11-14 16:23 | XMS_ITS | Encounter Summary ---
Author Organization [facility] Address [address] [facility] [address] [place] [address] Phone Care Team Providers Care Supervisor Drying And Winding Name Role Phone Sj Benson MD Primary Care Provider [phone] Reason for Referral * Consultation (Routine) - Pending Review Specialty Diagnoses / Procedures Referred By Hector sosa Referred To Contact Hematology Diagnoses Hospital discharge follow-up Claudia Ryan NP [address] [place] [address] Phone: tel: fax: Claudia Salmon MD [address] [place] [address] Phone: tel: fax: Referral ID Status Reason Start Date Expiration Date Visits Requested Visits Authorized [id number] Pending Review Specialty Services Required 4 11/08/2025 1 1 Question Answer Please select the performing region: [facility] (All Locations) [[id number]] Please select the performing department: [facility] HEM ACB6 [[id number]] To provider: CLAUDIA SALMON [[id number]] # of visits: 1 Comments Hospital discharge f/u with Dr Salmon in about 3 months EL SINGER Encounter Details Date Type Department Care Team (Late st Contact Info) Description 10/09/2024 Orders Only [facility] Hematology [address] [facility] [address] [place] [address] Claudia Ryan, JOSE [address] [place] [address] Hospital discharge follow-up (Primary Dx) Social History Tobacco Use Types Packs/Day Years [...] on file Legal Sex Male 12:23 PM GOSPEL SINGER Gender Identity Not on file Sexual Orientation Not on file documented as of this encounter Plan of Treatment Scheduled Referrals Name Type Priority Associated Diagnoses Order Schedule Ambulatory referral to Hematology Outpatient Referral Routine Hospital discharge follow-up Ordered: 10/09/2024 documented as of this encounter Visit Diagnoses Diagnosis Hospital discharge follow-up- Primary Other follow-up examination documented in this encounter Care Teams Supervisor Drying And Winding Relationship Specialty Start Date End Date Sj Benson MD [address] [facility] [place] [address] PCP - General Family Medicine 07/05/24 documented as of this encounter
--- OUTSIDE RECORDS SUMMARY | 2024-11-14 16:23 | XMS_ITS | Encounter Summary ---
Author Organization [facility] Address [address] [place] [address] Phone Care Team Providers Care Regional Guide Name Role Phone Sj Benson MD Primary Care Provider [phone] Encounter Details Date Type Department Care Team (Late st Contact Info) Description 10/13/2024 8:10 AM ORACLE REPORTS DEVELOPER Ancillary Procedure [facility] Vascular Lab IP [address] [facility] [address] [place] [address] Social History Tobacco Use Types Packs/Day Years [...] on file Legal Sex Male 12:23 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 Gender Identity Not on file Sexual Orientation Not on file documented as of this encounter Plan of Treatment Not on file documented as of this encounter Procedures Procedure Name Priority Date/Time Associated Diagnosis Comments US VEIN DUPLEX LOWER EXTREMITY BILATERAL COMPLETE IP Routine 10/13/2024 9:43 AM ORACLE REPORTS DEVELOPER documented in this encounter Results * US Vein Duplex Lower Extremity Bilateral Complete (10/13/2024 9:43 AM ORACLE REPORTS DEVELOPER) Anatomical Region Laterality Modality Vascular Bilateral Ultrasound 10/13/2024 9:05 AM ORACLE REPORTS DEVELOPER Narrative 10/13/2024 1:52 PM ORACLE REPORTS DEVELOPER [facility] - Department of Vascular Surgery, Vascular Laboratory [address] [place] [address] Lower Extremity Venous Ultrasound Report Patient Name: RYAN DELGADO F : 1950 (74y ) Study Date: 10/13/2024 9:05:32 AM Gender: M Tech: SAGAR Location: [id number] Ref Provider: MEGHAN WHYTE Quality: Adequate Order [...] thrombus size per hematology - FINDINGS: Performing Hat Measurer: Jessica Aguilar RVT. Right: Duplex scan reveals [...] on the above date to Meghan Whyte SHOT BLASTER at 9:40am. CONCLUSIONS: 1. There is acute [...] Tyshawn Mullins MD FACS 10/13/2024 1:52:11 PM ORACLE REPORTS DEVELOPER Procedure Note Tyshawn Mullins MD - 10/13/2024 [facility] - Department of Vascular Surgery,Vascular Laboratory [address] [place] [address] Lower Extremity Venous Ultrasound Report Patient Name: RYAN DELGADO F : 1950 (74y ) Study Date: 10/13/2024 9:05:32 AM Gender: M Tech: Location: [id number] Ref Provider: MEGHAN WHYTE Quality: Adequate Order [...] thrombus size per hematology - FINDINGS: Performing Hat Measurer: Jessica Aguilar RVT. Right: Duplex scan reveals [...] above. Electronically Signed By: Tyshawn Mullins MD [facility] 10/13/2024 1:52:11 PM ORACLE REPORTS DEVELOPER us Meghan Whyte SHOT BLASTER IMG US PROCEDURES Final Result documented in this encounter Visit Diagnoses Not on filedocumented in this encounter Care Teams Regional Guide Relationship Specialty Start Date End Date Sj Benson MD [address] [facility] DEPT [place] [address] PCP - General Family Medicine 07/05/24 documented as of this encounter
--- OUTSIDE RECORDS SUMMARY | 2024-11-14 16:23 | XMS_ITS | Encounter Summary ---
Author Organization [facility] Address [address] [facility] [address] [place] [address] Phone Care Team Providers Care Paper Inserter Name Role Phone Sj Benson MD Primary Care Provider [phone] Encounter Details Date Type Department Care Team (Late st Contact Info) Description 11/07/[address] [facility] Neurosurgery [address] 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 K COACH * Telephone Encounter - Bernice Cohn RMA - 11/07/2024 3:39 PM CST Patient called the office requesting CM to call her with the prognosis of her - patient was informed that the patient is schedule for post op appointment on 11/2024 and should receive information about his health condition Patient states that she still would like for CM to call her with a prognosis K COACH documented in this encounter Plan of Treatment Not on file documented as of this encounter Visit Diagnoses Not on filedocumented in this encounter Care Teams Paper Inserter Relationship Specialty Start Date End Date Sj Benson MD [address] [facility] DEPT [place] [address] PCP - General Family Medicine 07/05/24 documented as of this encounter
--- OUTSIDE RECORDS SUMMARY | 2024-11-14 16:23 | XMS_ITS | Referral Summary ---
Author Organization [facility] Address [address] [place] [address] Care Team Providers Care Merchandise Planning Manager Name Role Phone Sj Benson MD Primary Care Provider [phone] Encounters Date Type Department Care Team Description 11/07/2024 Telephone [facility] [address] [facility] 6th [place] [address] [place] [address] James Robles MD 11/06/2024 11:07 AM CLIPMAN - 11/06/2024 11:59 PM CLIPMAN Hospital Encounter [facility] Emergency, Room R Discharge Disposition: Discharge to home or self care 10/02/2024 5:29 AM CLIPMAN - 10/14/2024 2:41 PM CLIPMAN Hospital Encounter [facility] [address] [place] [id number] James Robles MD Thoracic myelopathy Discharge Disposition: Discharge to an IP Rehab facility 10/13/2024 8:10 AM CLIPMAN Ancillary Procedure [facility] IP [address] [facility] [address] [place] [phone] 10/09/2024 Orders Only [facility] [address] [facility] Floor 6 [place] [phone] Claudia Ryan NP Hospital discharge follow-up (Primary Dx) 10/09/2024 Telephone [facility] [address] [facility] 8th [place] [address] [place] [address] Stephany Carver 10/09/2024 8:55 AM CLIPMAN Ancillary Procedure [facility] [address] [facility] [address] [place] [address] 10/02/[address] [facility] Operating Room [address] [place] [address] James Robles MD 10/02/2024 7:30 AM CLIPMAN - 10/02/2024 3:[address] 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 Operating [address] [place] [address] Marimar Carr MD PhD Sully Archer NP 09/13/2024 10:05 AM CDT Lab [facility] [address] [facility] [address] [place] [address] Preoperative testing; Thoracic myelopathy 09/13/2024 10:30 AM CDT Pre-Admission Testing [facility] Pre Anesthesia Testing [address] [place] [address] Preoperative testing (Primary Dx) 08/16/2024 Telephone [facility] [address] [place] [address] Medical [address] Building [address] [place] [phone] James Robles MD from Last 3 Months Allergies Active Allergy Reactions Criticality Noted Date Comments Sulfa Unknown Low 07/26/2024 Childhood reaction - unknown what reaction occurred Medications finasteride (PROSCAR) 5 mg tabletIndicatio ns:benign prostatic hyperplasia with lower urinary tract sx Take 1 tablet (5 mg total) by mouth every morning Active tamsulosin (FLOMAX) 0.4 mg extended release [...] kidney disease 08/10/2017 Lumbago 06/04/2009 Numbness 06/04/2009 Immunizations Name Administration Dates Next Due Moderna SARS-CoV-2 Monovalent Vaccination (12+ Y RS) 03/10/2021,02/10/2021 Tdap 08/10/2017,03/04/2017 ZOSTER Recombinant 11/10/2022,07/10/2022 Social History Tobacco Use Types Packs/Day Years [...] on file Legal Sex Male 12:23 PM CLIPMAN Gender Identity Not on file Sexual Orientation Not on file Last Filed Vital Signs Vital Sign Reading Time Taken Comments Blood Pressure 109/63 10/14/2024 12:17 PM CLIPMAN Pulse 60 10/14/2024 12:17 PM CLIPMAN Temperature 36.6 ??C (97.9 ??F) 10/14/2024 1 2:17 PM CLIPMAN Respiratory Rate 16 10/14/2024 12:1 7 PM CLIPMAN Oxygen Saturation 97% 10/14/2024 12: 17 PM CLIPMAN Inhaled Oxygen Concentration - - Weight 98.4 kg (216 lb 14.9 oz) 10/12/2024 2:30 PM CLIPMAN Height 182.9 cm (6') 10/03/2024 2:04 PM CLIPMAN Body Mass Index 29.42 10/03/2024 2:04 PM CLIPMAN Plan of Treatment Not on file Procedures Procedure Name Priority Date/Time Associated Diagnosis Comments HEPATIC FUNCTION PANEL Routine 8:12 PM CLIPMAN EGFR Routine 10/13/2024 8:12 PM CLIPMAN PROTIME-INR STAT 10/13/2024 8:12 PM CLIPMAN CBC WITHOUT DIFFERENTIAL Routine 10/13/2024 8:12 PM CLIPMAN BASIC METABOLIC PANEL Routine 10/13/2024 8:12 PM CLIPMAN PEP THERAPY Routine 10/13/2024 12:00 PM CLIPMAN US VEIN DUPLEX LOWER EXTREMITY BILATERAL COMPLETE IP Routine 10/13/2024 9:43 AM CLIPMAN APTT STAT 10/13/2024 6:24 AM CLIPMAN PEP THERAPY Routine 10/13/2024 6:01 AM CLIPMAN EGFR Routine 10/12/2024 9:40 PM CLIPMAN APTT Routine 10/12/2024 9:40 PM CLIPMAN CBC WITHOUT DIFFERENTIAL Routine 10/12/2024 9:40 PM CLIPMAN BASIC METABOLIC PANEL Routine 10/12/2024 9:40 PM CLIPMAN PEP THERAPY Routine 10/12/2024 6:00 PM CLIPMAN PEP THERAPY Routine 10/12/2024 12:00 PM CLIPMAN APTT STAT 10/12/2024 6:21 AM CLIPMAN PEP THERAPY Routine 10/12/2024 6:01 AM CLIPMAN APTT STAT 10/12/2024 12:54 AM CLIPMAN EGFR Routine 10/11/2024 9:52 PM CLIPMAN CBC WITHOUT DIFFERENTIAL Routine 10/11/2024 9:52 PM CLIPMAN BASIC METABOLIC PANEL Routine 10/11/2024 9:52 PM CLIPMAN PEP THERAPY Routine 10/11/2024 6:00 PM CLIPMAN APTT STAT 10/11/2024 5:30 PM CLIPMAN PEP THERAPY Routine 10/11/2024 12:00 PM CLIPMAN PEP THERAPY Routine 10/11/2024 6:01 AM CLIPMAN PEP THERAPY Routine 10/11/2024 12:00 AM CLIPMAN EGFR Routine 10/10/2024 8:04 PM CLIPMAN APTT STAT 10/10/2024 8:04 PM CLIPMAN PROTIME-INR STAT 10/10/2024 8:04 PM CLIPMAN APTT STAT 10/10/2024 8:04 PM CLIPMAN CBC WITHOUT DIFFERENTIAL Routine 10/10/2024 8:04 PM CLIPMAN BASIC METABOLIC PANEL Routine 10/10/2024 8:04 PM CLIPMAN PEP THERAPY Routine 10/10/2024 12:00 PM CLIPMAN CBC WITHOUT DIFFERENTIAL STAT 10/10/2024 11:51 AM CLIPMAN APTT STAT 10/10/2024 11:36 AM CLIPMAN PROTIME-INR STAT 10/10/2024 11:36 AM CLIPMAN PEP THERAPY Routine 10/10/2024 6:01 AM CLIPMAN EGFR Routine 10/10/2024 3:19 AM CLIPMAN CBC WITHOUT DIFFERENTIAL Routine 10/10/2024 3:19 AM CLIPMAN BASIC METABOLIC PANEL Routine 10/10/2024 3:19 AM CLIPMAN PEP THERAPY Routine 10/10/2024 12:00 AM CLIPMAN POCT GLUCOSE DEVICE Routine 10/09/2024 8 :41 PM CLIPMAN PEP THERAPY Routine 10/09/2024 6:00 PM CLIPMAN US VEIN DUPLEX LOWER EXTREMITY BILATERAL COMPLETE ED Urgent/IP Urgent 10/09/2024 10:08 AM CLIPMAN XR CHEST 1 VIEW IP Routine 10/09/2024 7:55 AM CLIPMAN PEP THERAPY Routine 10/09/2024 6:01 AM CLIPMAN PEP THERAPY Routine 10/09/2024 12:00 AM CLIPMAN EGFR Timed 10/08/2024 10:15 PM CLIPMAN PHOSPHORUS Timed 10/08/2024 10:15 PM CLIPMAN MAGNESIUM Timed 10/08/2024 10:15 PM CLIPMAN COMPREHENSIVE METABOLIC PANEL Timed 10/08/2024 10:15 PM CLIPMAN CBC WITHOUT DIFFERENTIAL Routine 10/08/2024 10:15 PM CLIPMAN PEP THERAPY Routine 10/08/2024 6:00 PM CLIPMAN PEP THERAPY Routine 10/08/2024 12:00 PM CLIPMAN TROPONIN I HIGH-SENSITIVITY STAT 10/08/2024 11:36 AM CLIPMAN LACTATE Timed 10/08/2024 8:38 AM CLIPMAN PEP THERAPY Routine 10/08/2024 6:00 AM CLIPMAN EGFR Routine 10/07/2024 10:19 PM CLIPMAN CBC WITHOUT DIFFERENTIAL Routine 10/07/2024 10:19 PM CLIPMAN BASIC METABOLIC PANEL Routine 10/07/2024 10:19 PM CLIPMAN LACTATE, WHOLE BLOOD Timed 10/07/2024 9:09 AM CLIPMAN URINALYSIS, MICROSCOPIC ONLY Routine 10/07/2024 5:37 AM CLIPMAN URINALYSIS AND REFLEX TO MICROSCOPIC AND CULTURE Routine 10/07/2024 5:37 AM CLIPMAN BLOOD CULTURE STAT 10/07/2024 5:37 AM CLIPMAN BLOOD CULTURE STAT 10/07/2024 5:37 AM CLIPMAN XR CHEST 1 VIEW IP Routine 10/07/2024 5:18 AM CLIPMAN PEP THERAPY Routine 10/07/2024 12:00 AM CLIPMAN LACTATE, WHOLE BLOOD Routine 10/06/2024 9:30 PM CLIPMAN EGFR Routine 10/06/2024 9:16 PM CLIPMAN CBC WITHOUT DIFFERENTIAL Routine 10/06/2024 9:16 PM CLIPMAN BASIC METABOLIC PANEL Routine 10/06/2024 9:16 PM CLIPMAN PEP THERAPY Routine 10/06/2024 6:00 PM CLIPMAN PEP THERAPY Routine 10/06/2024 12:00 PM CLIPMAN PEP THERAPY Routine 10/06/2024 6:01 AM CLIPMAN EGFR Routine 10/05/2024 10:43 PM CLIPMAN CBC WITHOUT DIFFERENTIAL Routine 10/05/2024 10:43 PM CLIPMAN LACTATE, WHOLE BLOOD Routine 10/05/2024 10:43 PM CLIPMAN BASIC METABOLIC PANEL Routine 10/05/2024 10:43 PM CLIPMAN PEP THERAPY Routine 10/05/2024 6:12 PM CLIPMAN PEP THERAPY Routine 10/05/2024 6:12 PM CLIPMAN EGFR Routine 10/04/2024 8:49 PM CLIPMAN DIFFERENTIAL AUTO Routine 10/04/2024 8:4 9 PM CLIPMAN LACTATE, WHOLE BLOOD Routine 10/04/2024 8:49 PM CLIPMAN CALCIUM,IONIZED, WHOLE BLOOD Routine 10/04/2024 8:49 PM CLIPMAN TROPONIN I HIGH-SENSITIVITY Routine 10/04/2024 8:49 PM CLIPMAN CBC WITH AUTO DIFFERENTIAL Routine 10/04/2024 8:49 PM CLIPMAN BASIC METABOLIC PANEL Routine 10/04/2024 8:49 PM CLIPMAN URINALYSIS, MICROSCOPIC ONLY STAT 10/04/2024 1:30 PM CLIPMAN URINALYSIS AND REFLEX TO MICROSCOPIC AND CULTURE STAT 10/04/2024 1:30 PM CLIPMAN LACTATE, WHOLE BLOOD STAT 10/04/2024 12:12 PM CLIPMAN TROPONIN I HIGH-SENSITIVITY 2-HOUR Timed 10/04/2024 12:06 PM CLIPMAN CRITICAL RESULT CALLBACK CHEMISTRY STAT 10/04/2024 9:06 AM CLIPMAN TROPONIN I HIGH-SENSITIVITY SERIES (BASELINE, 2HR, 4HR, 6HR) Routine 10/04/2024 9:06 AM CLIPMAN LACTATE STAT 10/04/2024 9:06 AM CLIPMAN INFLUENZA A/B, RSV, AND COVID-19 PCR Routine 10/04/2024 9:06 AM CLIPMAN EGFR Routine 10/03/2024 10:36 PM CLIPMAN BASIC METABOLIC PANEL Routine 10/03/2024 10:36 PM CLIPMAN DIFFERENTIAL AUTO Routine 10/03/2024 8:3 0 PM CLIPMAN CBC WITH AUTO DIFFERENTIAL Routine 10/03/2024 8:30 PM CLIPMAN EGFR STAT 10/03/2024 8:25 PM CLIPMAN BASIC METABOLIC PANEL STAT 10/03/2024 8:25 PM CLIPMAN ECG 12-LEAD Routine 10/03/2024 2:19 PM CLIPMAN POCT GLUCOSE DEVICE Routine 10/03/2024 2 :07 PM CLIPMAN EGFR Routine 10/03/2024 4:58 AM CLIPMAN DIFFERENTIAL AUTO Routine 10/03/2024 4:5 8 AM CLIPMAN BASIC METABOLIC PANEL Routine 10/03/2024 4:58 AM CLIPMAN CBC WITH AUTO DIFFERENTIAL Routine 10/03/2024 4:58 AM CLIPMAN XR CHEST 1 VIEW IP Routine 10/02/2024 9:08 PM CLIPMAN EGFR STAT 10/02/2024 4:01 PM CLIPMAN DIFFERENTIAL AUTO STAT 10/02/2024 4:0 1 PM CLIPMAN PROTIME-INR STAT 10/02/2024 4:01 PM CLIPMAN APTT STAT 10/02/2024 4:01 PM CLIPMAN CBC WITH AUTO DIFFERENTIAL STAT 10/02/2024 4:01 PM CLIPMAN PHOSPHORUS STAT 10/02/2024 4:01 PM CLIPMAN MAGNESIUM STAT 10/02/2024 4:01 PM CLIPMAN COMPREHENSIVE METABOLIC PANEL STAT 10/02/2024 4:01 PM CLIPMAN POC BLOOD GAS AND CHEMISTRIES, ARTERIAL Routine 10/02/2024 2:30 PM CLIPMAN FL FLUOROSCOPY < 1 HOUR IP Routine 10/02/2024 2:00 PM CLIPMAN SURGICAL PATHOLOGY Routine 10/02/2024 12 :15 PM CLIPMAN POC BLOOD GAS AND CHEMISTRIES, ARTERIAL Routine 10/02/2024 10:43 AM CLIPMAN ANESTHESIA ARTERIAL LINE PLACEMENT Routine 10/02/2024 8:32 AM CLIPMAN ANESTHESIA INTUBATION Routine 10/02/2024 8:31 AM CLIPMAN SPINAL CORD MONITORING 7:29 AM CLIPMAN Thoracic myelopathy Case Notes [email or web address] Celine via email add Dr. David HEBERT LAMINECTOMY THORACIC DECOMPRESSION 10/02/2024 7:29 AM CLIPMAN Thoracic myelopathy Case Notes [email or web address] via email add Dr. David HEBERT FUSION SPINAL - POSTERIOR LUMBAR/THORACIC WITH INSTRUMENTATION 10/02/2024 7:29 AM CLIPMAN Thoracic myelopathy Case Notes [email or web address] Celine via email add Dr. David HEBERT TYPE AND SCREEN STAT 10/02/2024 6:18 AM CLIPMAN EGFR Routine 09/13/2024 11:37 AM CDT Thoracic [...] Months Results * eGFR (10/13/2024 8:12 PM CLIPMAN) [facility] eGFR 60 >=60 mL/min/1. 73 m2 Comment: [...] last reviewed 2021. Blood 10/13/2024 8:12 PM CLIPMAN 10/13/2024 8:37 PM CLIPMAN James Robles MD LAB BLOOD ORDERABLES Final Resu lt Performing Organization Address [facility] Co de Phone Number [facility] Department [place] [address] * Protime-INR (10/13/2024 8:12 PM CLIPMAN) Pathologist [facility] PT 11.5 9.7 - 13.0 sec INR 1.06 0.90 - 1.20 [facility] Comment: Interpretive data Oral anticoagulant therapeutic ranges: Venous thromboembolism prophylaxis or treatment: 2.0-3.0 CARDIOLOGY Standard range: 2.0-3.0 High-intensity range: 2.5-3.5 Refer to indication-specific guidelines for appropriate target ranges for prosthetic heart valve replacement. Current interpretive data was last revised on 2019. Blood 10/13/2024 8:12 PM CLIPMAN 10/13/2024 8:32 PM CLIPMAN Narrative [facility] - 10/13/2024 8:38 PM CLIPMAN Baseline prior to apixaban initiation. Meghan Whyte NP LAB BLOOD ORDERABLES Fin al Result Performing Organization Address [facility] Co de Phone Number [facility] Department [place] [address] * (ABNORMAL) CBC without differential (10/13/2024 8:12 PM CLIPMAN) [facility] WBC 17.1(H) 3.8 - 9.9 K/cumm Hgb 12.1(L) 13.0 - 17.5 g/dL [facility] Hct 37.0(L) 38.9 - 50.3 % [facility] Plt 214 150 - 400 K/cumm [facility] MPV 10.1 9.1 - 12.3 fL [facility] RBC 3.76(L) 4.30 - 5.80 M/cumm [facility] MCV 98.4(H) 81.3 - 96.4 fL [facility] MCH 32.2 27.1 - 33.3 pg [facility] MCHC 32.7 32.3 - 35.7 g/dL [facility] RDW CV 14.6 11.1 - 14.9 % [facility] RDW SD 52.2(H) 35.7 - 48.1 fL [facility] NRBC abs 0.00 0.00 - 0.01 K/cumm [facility] Blood 10/13/2024 8:12 PM CLIPMAN 10/13/2024 8:26 PM CLIPMAN Maria Isabel Unger NP LAB BLOOD ORDERABLES Final Result [facility] [address] [facility] Department [place] [address] * (ABNORMAL) Hepatic function panel (10/13/2024 8:12 PM CLIPMAN) [facility] Bilirubin, total 0.2 0.1 - 1.2 mg/dL Bilirubin, direct <0.2 0.1 - 0.3 mg/dL [facility] Protein, pl 5.8(L) 6.5 - 8.5 g/dL [facility] Albumin 3.4(L) 3.5 - 5.0 g/dL [facility] Alk phos 59 40 - 130 Units/L [facility] ALT 28 7 - 55 Units/L [facility] AST 26 10 - 50 Units/L [facility] Comment:Hemolyzed; result ma y be falsely elevated Blood 10/13/2024 8:12 PM CLIPMAN 10/13/2024 8:23 PM CLIPMAN James Robles MD LAB BLOOD ORDERABLES Final Resu lt [facility] [address] [facility] Department [place] [address] * (ABNORMAL) Basic metabolic panel (10/13/2024 8:12 PM CLIPMAN) Pathologist [facility] Sodium 140 135 - 145 mmol/L Potassium, pl 4.7 3.3 - 4.9 mmol/L [facility] Comment:Hemolyzed; Potassium value may be falsely elevated by as much as 0.3-0.5 mmol/L. Suggest redraw and reanalysis. Chloride 107 97 - 110 mmol/L [facility] CO2 23 22 - 32 mmol/L [facility] Anion gap 10 2 - 15 mmol/L [facility] BUN 26(H) 6 - 25 mg/dL [facility] Creatinine 1.25 0.80 - 1.30 mg/dL [facility] Glucose 96 70 - 199 mg/dL [facility] Comment: Interpretive Data Fasting glucose >/= [...] 2022. Calcium 8.9 8.5 - 10.3 mg/dL [facility] Blood 10/13/2024 8:12 PM CLIPMAN 10/13/2024 8:23 PM CLIPMAN James Robles MD LAB BLOOD ORDERABLES Final Resu lt [facility] Department [place] [address] * US Vein Duplex Lower Extremity Bilateral Complete (10/13/2024 9:43 AM CLIPMAN) Anatomical Region Laterality Modality Vascular Bilateral Ultrasound 10/13/2024 9:05 AM CLIPMAN Narrative 10/13/2024 1:52 PM CLIPMAN [facility] - Department of Vascular Surgery, Vascular Laboratory [address] [place] [id number] Lower Extremity Venous Ultrasound Report Patient Name: LILI DELGADO F : 1950 (74y ) Study Date: 10/13/2024 9:05:32 AM Gender: M Tech: Location: [id number] Ref Provider: MEGHAN WHYTE Quality: Adequate Order [...] thrombus size per hematology - FINDINGS: Performing Emergency Preparedness Manager: Jessica Aguilar RVT. Right: Duplex scan reveals [...] Tyshawn Mullins MD FACS 10/13/2024 1:52:11 PM CLIPMAN Procedure Note Tyshawn Mullins MD - 10/13/2024 [facility] - Department of Vascular Surgery,Vascular Laboratory [address] [place] [address] Lower Extremity Venous Ultrasound Report Patient Name: LILI DELGADO F : 1950 (74y ) Study Date: 10/13/2024 9:05:32 AM Gender: M Tech: Location: [id number] Ref Provider: MEGHAN WHYTE Quality: Adequate Order [...] thrombus size per hematology - FINDINGS: Performing Emergency Preparedness Manager: Jessica Aguilar RVT. Right: Duplex scan reveals [...] above. Electronically Signed By: Tyshawn Mullins MD [facility] 10/13/2024 1:52:11 PM CLIPMAN us Meghan Whyte NP IMG US PROCEDURES Final Result * (ABNORMAL) aPTT (10/13/2024 6:24 AM CLIPMAN) aPTT 55(H) 28 - 38 sec Comment: Interpretive Data Heparin therapeutic range: 66.0 - 100.0 seconds. Range based on correlation with therapeutic heparin activity range of 0.3 - 0.7 Units/mL. Current interpretive data was last revised on 2023. Blood 10/13/2024 6:24 AM CLIPMAN 10/13/2024 6:52 AM CLIPMAN Marco JACOBS [facility] - 10/13/2024 7:17 AM CLIPMAN STAT PTT timing: - Draw 6 hours [...] ORDERABLES Final Resu lt Performing Organization Address City/[facility] Co de Phone Number [facility] [place] [address] * (ABNORMAL) eGFR (10/12/2024 9:40 PM CLIPMAN) eGFR 49(L) >=60 mL/min/1. 73 m2 Comment: [...] last reviewed 2021. Blood 10/12/2024 9:40 PM CLIPMAN 10/12/2024 11:24 PM CLIPMAN James Robles MD LAB BLOOD ORDERABLES Final Resu lt Performing Organization Address City/[facility]/ZIP Co de Phone Number [facility] [place] [address] * (ABNORMAL) aPTT (10/12/2024 9:40 PM CLIPMAN) [facility] aPTT 57(H) 28 - 38 sec Comment: Interpretive Data Heparin therapeutic range: 66.0 - 100.0 seconds. Range based on correlation with therapeutic heparin activity range of 0.3 - 0.7 Units/mL. Current interpretive data was last revised on 2023. Blood 10/12/2024 9:40 PM CLIPMAN 10/12/2024 11:26 PM CLIPMAN Meghan Whyte [employer] LAB BLOOD ORDERABLES Fin al Result Performing Organization Address City/State/[facility] Co de Phone Number [facility] [place] [address] * (ABNORMAL) CBC without differential (10/12/2024 9:40 PM CLIPMAN) [facility] WBC 13.9(H) 3.8 - 9.9 K/cumm Hgb 11.4(L) 13.0 - 17.5 g/dL [facility] Hct 35.0(L) 38.9 - 50.3 % [facility] Plt 232 150 - 400 K/cumm [facility] MPV 10.5 9.1 - 12.3 fL [facility] RBC 3.59(L) 4.30 - 5.80 M/cumm [facility] MCV 97.5(H) 81.3 - 96.4 fL [facility] MCH 31.8 27.1 - 33.3 pg [facility] MCHC 32.6 32.3 - 35.7 g/dL [facility] RDW CV 14.6 11.1 - 14.9 % [facility] RDW SD 51.2(H) 35.7 - 48.1 fL [facility] NRBC abs 0.00 0.00 - 0.01 K/cumm [facility] Blood 10/12/2024 9:40 PM CLIPMAN 10/12/2024 11:24 PM CLIPMAN us Maria Isabel Unger NP LAB BLOOD ORDERABLES Final Result [facility] Department [place] [address] * (ABNORMAL) Basic metabolic panel (10/12/2024 9:40 PM CLIPMAN) [facility] Sodium 144 135 - 145 mmol/L Potassium, pl 4.4 3.3 - 4.9 mmol/L [facility] Chloride 109 97 - 110 mmol/L [facility] CO2 27 22 - 32 mmol/L [facility] Anion gap 8 2 - 15 mmol/L [facility] BUN 28(H) 6 - 25 mg/dL [facility] Creatinine 1.48(H) 0.80 - 1.30 mg/dL [facility] Glucose 110 70 - 199 mg/dL [facility] Comment: Interpretive Data Fasting glucose >/= [...] 2022. Calcium 8.4(L) 8.5 - 10.3 mg/dL [facility] Blood 10/12/2024 9:40 PM CLIPMAN 10/12/2024 11:24 PM CLIPMAN us James Robles MD LAB BLOOD ORDERABLES Final Resu lt [facility] Department [place] [address] * (ABNORMAL) aPTT (10/12/2024 6:21 AM CLIPMAN) aPTT 51(H) 28 - 38 sec Comment: Interpretive Data Heparin therapeutic range: 66.0 - 100.0 seconds. Range based on correlation with therapeutic heparin activity range of 0.3 - 0.7 Units/mL. Current interpretive data was last revised on 2023. Blood 10/12/2024 6:21 AM CLIPMAN 10/12/2024 6:49 AM CLIPMAN Narrative [facility] - 10/12/2024 6:56 AM CLIPMAN STAT PTT timing: - Draw 6 hours [...] LAB BLOOD ORDERABLES Final Resu lt [facility]O [facility] Department [place] [address] * (ABNORMAL) aPTT (10/12/2024 12:54 AM CLIPMAN) Pathologist [facility] aPTT 51(H) 28 - 38 sec Comment: Interpretive Data Heparin therapeutic range: 66.0 - 100.0 seconds. Range based on correlation with therapeutic heparin activity range of 0.3 - 0.7 Units/mL. Current interpretive data was last revised on 2023. Blood 10/12/2024 12:5 4 AM CLIPMAN 10/12/2024 1:09 AM CLIPMAN Narrative [facility] - 10/12/2024 1:17 AM CLIPMAN STAT PTT timing: - Draw 6 hours [...] LAB BLOOD ORDERABLES Final Resu lt [facility] Department [place] [address] * (ABNORMAL) eGFR (10/11/2024 9:52 PM CLIPMAN) [facility] Signature eGFR 42(L) >=60 mL/min/1. 73 m2 Comment: [...] last reviewed 2021. Blood 10/11/2024 9:52 PM CLIPMAN 10/11/2024 11:34 PM CLIPMAN us James Robles MD LAB BLOOD ORDERABLES Final Resu lt [facility] [place] [address] * (ABNORMAL) CBC without differential (10/11/2024 9:52 PM CLIPMAN) WBC 15.3(H) 3.8 - 9.9 K/cumm Hgb 10.9(L) 13.0 - 17.5 g/dL [facility] Hct 33.4(L) 38.9 - 50.3 % [facility] Plt 234 150 - 400 K/cumm [facility] MPV 10.4 9.1 - 12.3 fL [facility] RBC 3.47(L) 4.30 - 5.80 M/cumm [facility] MCV 96.3 81.3 - 96.4 fL [facility] MCH 31.4 27.1 - 33.3 pg [facility] MCHC 32.6 32.3 - 35.7 g/dL [facility] RDW CV 14.3 11.1 - 14.9 % [facility] RDW SD 49.6(H) 35.7 - 48.1 fL [facility] NRBC abs 0.00 0.00 - 0.01 K/cumm [facility] Blood 10/11/2024 9:52 PM CLIPMAN 10/11/2024 11:34 PM CLIPMAN us Maria Isabel Unger NP LAB BLOOD ORDERABLES Final Result Performing Organization Address City/[facility]/ZIP Co de Phone Number [facility] [place], [place] [id number] * (ABNORMAL) Basic metabolic panel (10/11/2024 9:52 PM CLIPMAN) Sodium 141 135 - 145 mmol/L Potassium, pl 4.6 3.3 - 4.9 mmol/L [facility] Chloride 107 97 - 110 mmol/L [facility] CO2 27 22 - 32 mmol/L [facility] Anion gap 7 2 - 15 mmol/L [facility] BUN 35(H) 6 - 25 mg/dL [facility] Creatinine 1.68(H) 0.80 - 1.30 mg/dL [facility] Glucose 115 70 - 199 mg/dL [facility] Comment: Interpretive Data Fasting glucose >/= [...] 2022. Calcium 8.1(L) 8.5 - 10.3 mg/dL [facility] Blood 10/11/2024 9:52 PM CLIPMAN 10/11/2024 11:34 PM CLIPMAN us James Robles MD LAB BLOOD ORDERABLES Final Resu lt [facility] Department [place] [address] * aPTT (10/11/2024 5:30 PM CLIPMAN) aPTT 33 28 - 38 sec Comment: Interpretive Data Heparin therapeutic range: 66.0 - 100.0 seconds. Range based on correlation with therapeutic heparin activity range of 0.3 - 0.7 Units/mL. Current interpretive data was last revised on 2023. Blood 10/11/2024 5:30 PM CLIPMAN 10/11/2024 5:59 PM CLIPMAN Narrative REYNALDO CARSON - 10/11/2024 6:07 PM CLIPMAN STAT PTT timing: - Draw 6 hours [...] LAB BLOOD ORDERABLES Final Resu lt REYNALDO [facility] Department [place] [address] * (ABNORMAL) eGFR (10/10/2024 8:04 PM CLIPMAN) eGFR 45(L) >=60 mL/min/1. 73 m2 Comment: [...] last reviewed 2021. Blood 10/10/2024 8:04 PM CLIPMAN 10/10/2024 8:34 PM CLIPMAN Result [facility] James Robles MD LAB BLOOD ORDERABLES Final Resu lt Performing Organization Address [facility] [place] [address] * (ABNORMAL) aPTT (10/10/2024 8:04 PM CLIPMAN) aPTT 22(L) 28 - 38 sec Comment: Interpretive Data Heparin therapeutic range: 66.0 - 100.0 seconds. Range based on correlation with therapeutic heparin activity range of 0.3 - 0.7 Units/mL. Current interpretive data was last revised on 2023. Blood 10/10/2024 8:04 PM CLIPMAN 10/10/2024 8:24 PM CLIPMAN Result [facility] James Robles MD LAB BLOOD ORDERABLES Final Resu Performing Organization Address [facility] [place] [address] * (ABNORMAL) aPTT (10/10/2024 8:04 PM CLIPMAN) aPTT 22(L) 28 - 38 sec Comment: Interpretive Data Heparin therapeutic range: 66.0 - 100.0 seconds. Range based on correlation with therapeutic heparin activity range of 0.3 - 0.7 Units/mL. Current interpretive data was last revised on 2023. Blood 10/10/2024 8:04 PM CLIPMAN 10/10/2024 8:24 PM CLIPMAN Narrative [facility] - 10/10/2024 8:33 PM CLIPMAN STAT PTT timing: - Draw 6 hours [...] James Robles MD LAB BLOOD ORDERABLES [facility] Performing Organization Address [facility] de Phone Number [facility] [place] [address] * Protime-INR (10/10/2024 8:04 PM CLIPMAN) Pathologist [facility] PT 12.0 9.7 - 13.0 sec INR 1.11 0.90 - 1.20 [facility] Comment: Interpretive data Oral anticoagulant therapeutic ranges: Venous thromboembolism prophylaxis or treatment: 2.0-3.0 CARDIOLOGY Standard range: 2.0-3.0 High-intensity range: 2.5-3.5 Refer to indication-specific guidelines for appropriate target ranges for prosthetic heart valve replacement. Current interpretive data was last revised on 2019. Blood 10/10/2024 8:04 PM CLIPMAN 10/10/2024 8:24 PM CLIPMAN James Robles MD LAB BLOOD ORDERABLES Final Resu Performing Organization Address [facility] Co de Phone Number [facility] [place] [address] * (ABNORMAL) CBC without differential (10/10/2024 8:04 PM CLIPMAN) WBC 17.1(H) 3.8 - 9.9 K/cumm Hgb 11.6(L) 13.0 - 17.5 g/dL [facility] Hct 34.3(L) 38.9 - 50.3 % [facility] Plt 260 150 - 400 K/cumm [facility] MPV 10.3 9.1 - 12.3 fL [facility] RBC 3.62(L) 4.30 - 5.80 M/cumm [facility] MCV 94.8 81.3 - 96.4 fL [facility] MCH 32.0 27.1 - 33.3 pg [facility] MCHC 33.8 32.3 - 35.7 g/dL [facility] RDW CV 14.2 11.1 - 14.9 % [facility] RDW SD 48.3(H) 35.7 - 48.1 fL [facility] NRBC abs 0.00 0.00 - 0.01 K/cumm [facility] Blood 10/10/2024 8:04 PM CLIPMAN 10/10/2024 8:34 PM CLIPMAN Maria Isabel Unger NP LAB BLOOD ORDERABLES Final Result [facility] Department [place] [address] * (ABNORMAL) Basic metabolic panel (10/10/2024 8:04 PM CLIPMAN) Sodium 140 135 - 145 mmol/L Potassium, pl 4.6 3.3 - 4.9 mmol/L [facility] Chloride 105 97 - 110 mmol/L [facility] CO2 24 22 - 32 mmol/L [facility] Anion gap 11 2 - 15 mmol/L [facility] BUN 32(H) 6 - 25 mg/dL [facility] Creatinine 1.59(H) 0.80 - 1.30 mg/dL [facility] Glucose 108 70 - 199 mg/dL [facility] Comment: Interpretive Data Fasting glucose >/= [...] 2022. Calcium 8.4(L) 8.5 - 10.3 mg/dL [facility] Blood 10/10/2024 8:04 PM CLIPMAN 10/10/2024 8:34 PM CLIPMAN us James Robles MD LAB BLOOD ORDERABLES Final Resu lt [facility] Department [place] [address] * (ABNORMAL) CBC without differential (10/10/2024 11:51 AM CLIPMAN) WBC 21.0(H) 3.8 - 9.9 K/cumm Hgb 12.0(L) 13.0 - 17.5 g/dL [facility] Hct 36.7(L) 38.9 - 50.3 % [facility] Plt 272 150 - 400 K/cumm [facility] MPV 10.4 9.1 - 12.3 fL [facility] RBC 3.84(L) 4.30 - 5.80 M/cumm [facility] MCV 95.6 81.3 - 96.4 fL [facility] MCH 31.3 27.1 - 33.3 pg [facility] MCHC 32.7 32.3 - 35.7 g/dL [facility] RDW CV 14.0 11.1 - 14.9 % [facility] RDW SD 47.8 35.7 - 48.1 fL [facility] NRBC abs 0.00 0.00 - 0.01 K/cumm [facility] Blood 10/10/2024 11:5 1 AM CLIPMAN 10/10/2024 12:26 PM CLIPMAN Narrative [facility] - 10/10/2024 12:37 PM CLIPMAN Baseline prior to heparin initiation James Robles MD LAB BLOOD ORDERABLES Final Resu lt Performing Organization Address [facility] Co de Phone Number [facility] [place] [address] * (ABNORMAL) aPTT (10/10/2024 11:36 AM CLIPMAN) aPTT 23(L) 28 - 38 sec Comment: Interpretive Data Heparin therapeutic range: 66.0 - 100.0 seconds. Range based on correlation with therapeutic heparin activity range of 0.3 - 0.7 Units/mL. Current interpretive data was last revised on 2023. Blood 10/10/2024 11:3 6 AM CLIPMAN 10/10/2024 11:47 AM CLIPMAN Narrative [facility] - 10/10/2024 12:16 PM CLIPMAN Baseline prior to heparin initiation Result [facility] James Robles MD LAB BLOOD ORDERABLES Final Resu lt Performing Organization Address [facility] [place] [address] * Protime-INR (10/10/2024 11:36 AM CLIPMAN) PT 11.3 9.7 - 13.0 sec INR 1.05 0.90 - 1.20 [facility] Comment: Interpretive data Oral anticoagulant therapeutic ranges: Venous thromboembolism prophylaxis or treatment: 2.0-3.0 CARDIOLOGY Standard range: 2.0-3.0 High-intensity range: 2.5-3.5 Refer to indication-specific guidelines for appropriate target ranges for prosthetic heart valve replacement. Current interpretive data was last revised on 2019. Blood 10/10/2024 11:3 6 AM CLIPMAN 10/10/2024 11:47 AM CLIPMAN Narrative [facility] - 10/10/2024 12:16 PM CLIPMAN Baseline prior to heparin initiation James Robles MD LAB BLOOD ORDERABLES Final Resu lt Performing Organization Address City/[facility]/ZIP Co de Phone Number REYNALDO MAHARAJ [facility] Department [place] [address] * (ABNORMAL) eGFR (10/10/2024 3:19 AM CLIPMAN) eGFR 53(L) >=60 mL/min/1. 73 m2 Comment: [...] last reviewed 2021. Blood 10/10/2024 3:19 AM CLIPMAN 10/10/2024 5:57 AM CLIPMAN James Robles MD LAB BLOOD ORDERABLES Final Resu lt Performing Organization Address City/[facility]/ZIP Co de Phone Number REYNALDO MAHARAJ [facility] Department [place] [address] * (ABNORMAL) CBC without differential (10/10/2024 3:19 AM CLIPMAN) [facility] WBC 18.6(H) 3.8 - 9.9 K/cumm Hgb 11.7(L) 13.0 - 17.5 g/dL [facility] Hct 35.3(L) 38.9 - 50.3 % [facility] Plt 234 150 - 400 K/cumm [facility] MPV 10.4 9.1 - 12.3 fL [facility] RBC 3.69(L) 4.30 - 5.80 M/cumm [facility] MCV 95.7 81.3 - 96.4 fL [facility] MCH 31.7 27.1 - 33.3 pg [facility] MCHC 33.1 32.3 - 35.7 g/dL [facility] RDW CV 14.1 11.1 - 14.9 % [facility] RDW SD 48.1 35.7 - 48.1 fL [facility] NRBC abs 0.00 0.00 - 0.01 K/cumm [facility] Blood 10/10/2024 3:19 AM CLIPMAN 10/10/2024 6:01 AM CLIPMAN Maria Isabel Unger NP LAB BLOOD ORDERABLES Final Result [facility] Department [place] [address] * (ABNORMAL) Basic metabolic panel (10/10/2024 3:19 AM CLIPMAN) [facility] Sodium 141 135 - 145 mmol/L Potassium, pl 4.2 3.3 - 4.9 mmol/L [facility] Chloride 106 97 - 110 mmol/L [facility] CO2 27 22 - 32 mmol/L [facility] Anion gap 8 2 - 15 mmol/L [facility] BUN 34(H) 6 - 25 mg/dL [facility] Creatinine 1.38(H) 0.80 - 1.30 mg/dL [facility] Glucose 95 70 - 199 mg/dL [facility] Comment: Interpretive Data Fasting glucose >/= [...] 2022. Calcium 8.5 8.5 - 10.3 mg/dL [facility] Blood 10/10/2024 3:19 AM CLIPMAN 10/10/2024 5:57 AM CLIPMAN James Robles MD LAB BLOOD ORDERABLES Final Resu lt Performing Organization Address [facility] Co de Phone Number [facility] Department [place] [address] * POCT glucose (10/09/2024 8:41 PM CLIPMAN) Glucose, POC 141 70 - 199 mg/dL Blood 10/09/2024 8:41 PM CLIPMAN 10/09/2024 8:41 PM CLIPMAN James Robles MD LAB POCT ORDERABLES - DEVICE Fi nal Result Performing Organization Address [facility] Co de Phone Number [facility] [place] [address] * US Vein Duplex Lower Extremity Bilateral Complete (10/09/2024 10:08 AM CLIPMAN) Anatomical Region Laterality Modality Vascular Bilateral Ultrasound 10/09/2024 9:49 AM CLIPMAN Narrative 10/09/2024 11:51 AM CLIPMAN [facility] - Department of Vascular Surgery, Vascular Laboratory [address] [place] [id number] Lower Extremity Venous Ultrasound Report Patient Name: LILI DELGADO F : 1950 (74y ) Study Date: 10/09/2024 9:49:45 AM Gender: M Tech: AL Location: [id number] Ref Provider: OSIRIS OLIVEIRA ?Quality: Adequate Order [...] Pain in Leg, Right - FINDINGS: Performing Emergency Preparedness Manager: Niurka Krishna RVT. Right: Duplex scan reveals [...] on the above date to Osiris Oliveira [employer]ADER at 10:06 am. CONCLUSIONS: 1. There is [...] above. Electronically Signed By: Tyshawn Mullins MD [facility] 2024-10-09 11:50:17 CLIPMAN Procedure Note Tyshawn Mullins MD - 10/09/2024 [facility] - Department of Vascular Surgery,Vascular Laboratory [address] [place] [address] Lower Extremity Venous Ultrasound Report Patient Name: LILI DELGADO F : 1950 (74y ) Study Date: 10/09/2024 9:49:45 AM Gender: M Tech: AL Location: [id number] Ref Provider: OSIRIS OLIVEIRA Quality: Adequate Order [...] Pain in Leg, Right - FINDINGS: Performing Emergency Preparedness Manager: Niurka Krishna RVT. Right: Duplex scan reveals [...] on the above date to Osiris Oliveira [employer]OND GRADER at 10:06 am. CONCLUSIONS: 1. There is [...] above. Electronically Signed By: Tyshawn Mullins MD [facility] 2024-10-09 11:50:17 CLIPMAN Osiris Oliveira NP IMG US PROCEDURES Final Result * XR Chest 1 View (10/09/2024 7:55 AM CLIPMAN) Anatomical Region Laterality Modality Body, Chest N/A Digital Radiogra phy 10/09/2024 1:25 PM CLIPMAN Impressions 10/09/2024 4:11 PM CLIPMAN 1. ??Interval increase in left lung base atelectasis. Dictated by: Gabriel Warner M.D. The radiology attending physician has personally reviewed this study, and had reviewed and/or edited this written report and agrees with it. Electronically signed by: Austin Olsen M.D. Narrative 10/09/2024 4:11 PM CLIPMAN EXAMINATION: 1 view chest radiograph History: 74-year-old [...] signed by: Austin Olsen M.D. Osiris Oliveira NP IMG XR PROCEDURES Final Result * (ABNORMAL) eGFR (10/08/2024 10:15 PM CLIPMAN) Pathologist [facility] eGFR 55(L) >=60 mL/min/1. 73 m2 Comment: [...] reviewed 2021. Blood 10/08/2024 10:1 5 PM CLIPMAN 10/08/2024 11:56 PM CLIPMAN us Brianna Martínez [employer]OND GRADER LAB BLOOD ORDERABLES Cammy ramos Result [facility] [place] [address] * (ABNORMAL) CBC without differential (10/08/2024 10:15 PM CLIPMAN) Pathologist [facility] WBC 19.8(H) 3.8 - 9.9 K/cumm Hgb 11.2(L) 13.0 - 17.5 g/dL [facility] Hct 32.9(L) 38.9 - 50.3 % [facility] Plt 264 150 - 400 K/cumm [facility] MPV 10.5 9.1 - 12.3 fL [facility] RBC 3.57(L) 4.30 - 5.80 M/cumm [facility] MCV 92.2 81.3 - 96.4 fL [facility] MCH 31.4 27.1 - 33.3 pg [facility] MCHC 34.0 32.3 - 35.7 g/dL [facility] RDW CV 13.7 11.1 - 14.9 % [facility] RDW SD 45.1 35.7 - 48.1 fL [facility] NRBC abs 0.02(H) 0.00 - 0.01 K/cumm [facility] Blood 10/08/2024 10:1 5 PM CLIPMAN 10/08/2024 11:57 PM CLIPMAN Maria Isabel Unger DI[employer]OND GRADER LAB BLOOD ORDERABLES Final Result Performing Organization Address City/[facility]/ZIP Co de Phone Number [facility] Department [place] [address] * Phosphorus (10/08/2024 10:15 PM CLIPMAN) Pathologist [facility] Phosphorus, pl 3.1 2.3 - 4.5 mg/dL Blood 10/08/2024 10:1 5 PM CLIPMAN 10/08/2024 11:56 PM CLIPMAN Brianna Martínez [employer]OND GRADER LAB BLOOD ORDERABLES Cammy l Result [facility] [place] [address] * Magnesium (10/08/2024 10:15 PM CLIPMAN) [facility] Magnesium 2.3 1.4 - 2.5 mg/dL Blood 10/08/2024 10:1 5 PM CLIPMAN 10/08/2024 11:56 PM CLIPMAN us Brianna Barraza Mauricio [employer]OND GRADER LAB BLOOD ORDERABLES Cammy ramos Result [facility] Department [place] [address] * (ABNORMAL) Comprehensive metabolic panel (10/08/2024 10:15 PM CLIPMAN) Sodium 141 135 - 145 mmol/L Potassium, pl 4.6 3.3 - 4.9 mmol/L [facility] Chloride 107 97 - 110 mmol/L [facility] CO2 25 22 - 32 mmol/L [facility] Anion gap 9 2 - 15 mmol/L [facility] BUN 33(H) 6 - 25 mg/dL [facility] Creatinine 1.33(H) 0.80 - 1.30 mg/dL [facility] Glucose 108 70 - 199 mg/dL [facility] Comment: Interpretive Data Fasting glucose >/= [...] 2022. Calcium 8.6 8.5 - 10.3 mg/dL [facility] Bilirubin, total 0.3 0.1 - 1.2 mg/dL [facility] Protein, pl 4.8(L) 6.5 - 8.5 g/dL [facility] Albumin 2.9(L) 3.5 - 5.0 g/dL [facility] Alk phos 49 40 - 130 Units/L [facility] ALT 39 7 - 55 Units/L [facility] AST 19 10 - 50 Units/L [facility] Blood 10/08/2024 10:1 5 PM CLIPMAN 10/08/2024 11:56 PM CLIPMAN Brianna Christibrittany Martínez DIAMOND GRADER LAB BLOOD ORDERABLES Cammy l Result Performing Organization Address [facility] de Phone Number REYNALDO [facility] Department [place] [address] * Troponin I high-sensitivity (10/08/2024 11:36 AM CLIPMAN) Pathologist [facility] Trop I hs 30 <=35 ng/L Comment: Interpretive Data For further hscTnI resources including the diagnostic algorithm and an aid in interpretation, copy and paste this link: https://bjhlab.testcatalog.org/show/hsTrop-1 Current Interpretive Data last revised 2020. Blood 10/08/2024 11:3 6 AM CLIPMAN 10/08/2024 11:44 AM CLIPMAN us Brianna Martínez DI[employer]OND GRADER LAB BLOOD ORDERABLES Cammy l Result Performing Organization Address [facility] Co de Phone Number REYNALDO [facility] Department [place] [address] * (ABNORMAL) Lactate (10/08/2024 8:38 AM CLIPMAN) [facility] Lactate 2.9(H) 0.7 - 2.0 mmol/L Blood 10/08/2024 8:38 AM CLIPMAN 10/08/2024 11:44 AM CLIPMAN Brianna Christibrittany Martínez DIAMOND GRADER LAB BLOOD ORDERABLES Cammy l Result Performing Organization Address [facility] de Phone Number REYNALDO [facility] [place] [address] * eGFR (10/07/2024 10:19 PM CLIPMAN) [facility] eGFR 62 >=60 mL/min/1. 73 m2 Comment: [...] reviewed 2021. Blood 10/07/2024 10:1 9 PM CLIPMAN 10/07/2024 11:24 PM CLIPMAN us James Robles MD LAB BLOOD ORDERABLES Final Resu lt [facility] [place] [address] * (ABNORMAL) CBC without differential (10/07/2024 10:19 PM CLIPMAN) WBC 17.2(H) 3.8 - 9.9 K/cumm Hgb 11.4(L) 13.0 - 17.5 g/dL [facility] Hct 32.7(L) 38.9 - 50.3 % [facility] Plt 264 150 - 400 K/cumm [facility] MPV 10.6 9.1 - 12.3 fL [facility] RBC 3.58(L) 4.30 - 5.80 M/cumm [facility] MCV 91.3 81.3 - 96.4 fL [facility] MCH 31.8 27.1 - 33.3 pg [facility] MCHC 34.9 32.3 - 35.7 g/dL [facility] RDW CV 13.2 11.1 - 14.9 % [facility] RDW SD 43.6 35.7 - 48.1 fL [facility] NRBC abs 0.00 0.00 - 0.01 K/cumm [facility] Blood 10/07/2024 10:1 9 PM CLIPMAN 10/07/2024 11:24 PM CLIPMAN Maria Isabel Unger NP LAB BLOOD ORDERABLES Final Result [facility] [place] [address] * (ABNORMAL) Basic metabolic panel (10/07/2024 10:19 PM CLIPMAN) Sodium 142 135 - 145 mmol/L Potassium, pl 4.5 3.3 - 4.9 mmol/L [facility] Chloride 107 97 - 110 mmol/L [facility] CO2 26 22 - 32 mmol/L [facility] Anion gap 9 2 - 15 mmol/L [facility] BUN 33(H) 6 - 25 mg/dL [facility] Creatinine 1.21 0.80 - 1.30 mg/dL [facility] Glucose 140 70 - 199 mg/dL [facility] Comment: Interpretive Data Fasting glucose >/= [...] 2022. Calcium 8.5 8.5 - 10.3 mg/dL [facility] Blood 10/07/2024 10:1 9 PM CLIPMAN 10/07/2024 11:24 PM CLIPMAN us James Robles MD LAB BLOOD ORDERABLES Final Resu lt [facility] [place] [address] * (ABNORMAL) Lactate, whole blood (10/07/2024 9:09 AM CLIPMAN) Lactate, bld 3.4(H) 0.7 - 2.0 mmol/L Blood 10/07/2024 9:09 AM CLIPMAN 10/07/2024 9:15 AM CLIPMAN us Brianna Martínez NP LAB BLOOD ORDERABLES Cammy l Result Performing Organization Address [facility] Co de Phone Number [facility] [place] [address] * (ABNORMAL) Urinalysis reflex to microscopic and culture Urine (10/07/2024 5:37 AM CLIPMAN) Color, ur Straw Yellow Clarity, ur Clear Clear [facility] Specific gravity, ur 1.013 1.003 - 1.030 [facility] pH, urine 7.0 [facility] Comment: Interpretive Data ? Urine pH is affected by diet, medications, systemic acid-base disturbances, and renal tubular function. ??pH may affect urinary stone formation. ??For example, urine pH below 6.0 may help reduce the tendency for calcium phosphate stones and pH greater than 6.0 may reduce the tendency for uric acid stone formation. Source: [facility] Current Interpretive Data was last revised on 2017 Protein, ur ql Negative Negative [facility] Glucose, ur ql Negative Negative [facility] Ketones, ur Negative Negative [facility] Bilirubin, ur Negative Negative [facility] Blood, ur Trace(A) Negative [facility] Urobilinogen, ur <2.0 <2.0 mg/dL [facility] Nitrite, ur Negative Negative [facility] Leukocyte esterase, ur Negative Negative [facility] UA reflex comment Reflex to microscopic UA will be performed. [facility] Urine 10/07/2024 5:37 AM CLIPMAN 10/07/2024 5:46 AM CLIPMAN James Robles MD LAB MICROBIOLOGY - GENERAL RAYMOND JEFFERY Final Result [facility] [place] [address] * Blood culture Blood (10/07/2024 5:37 AM CLIPMAN) Report Final Report: No growth Blood 10/07/2024 5:37 AM CLIPMAN 10/07/2024 7:00 AM CLIPMAN Narrative [facility] - 10/11/2024 7:00 AM CLIPMAN Collection->Peripheral 1. ?Blood cultures are incubated for [...] organism identification may be performed using the [employer] Gram-Positive Blood Culture Assay. This assay detects microbial DNA in positive blood culture broth via hybridization of target DNA to capture oligonucleotides on a microarray. This assay has been cleared by the [place] Food and Drug Administration and its performance characteristics have been verified by the [facility] Microbiology Laboratory. 5. ?For questions about this culture, contact the Microbiology Laboratory at [phone]. Interpretive data was last revised on 2020. James Robles MD LAB MICROBIOLOGY - GENERAL ORDMariano BANKSBECCA Final Result Performing Organization Address [facility] Co de Phone Number REYNALDO MAHARAJ [facility] Department [place] [address] * Blood culture Blood (10/07/2024 5:37 AM CLIPMAN) Report Final Report: No growth Blood 10/07/2024 5:37 AM CLIPMAN 10/07/2024 6:07 AM CLIPMAN Narrative RE[facility]NALDO [facility] - 10/11/2024 7:00 AM CLIPMAN Collection->Peripheral 1. ?Blood cultures are incubated for [...] organism identification may be performed using the [employer] Gram-Positive Blood Culture Assay. This assay detects microbial DNA in positive blood culture broth via hybridization of target DNA to capture oligonucleotides on a microarray. This assay has been cleared by the [place] Food and Drug Administration and its performance characteristics have been verified by the [facility]. 5. ?For questions about this culture, contact the Microbiology Laboratory at [phone]. Interpretive data was last revised on 2020. James Robles MD LAB MICROBIOLOGY - GENERAL RAYMOND JEFFERY Final Result Performing Organization Address City/[facility] Co de Phone Number [facility] Department [place] [address] * (ABNORMAL) Urinalysis, microscopic only (10/07/2024 5:37 AM CLIPMAN) WBC, ur 0-5 0 - 5 /HPF RBC, ur 11-20(A) 0 - 2 /HPF [facility] Mucous, ur Present(A) [facility] Culture Reflex Comment Reflex conditions for urine culture (WBC >10) not met. [facility] Urine 10/07/2024 5:37 AM CLIPMAN 10/07/2024 5:46 AM CLIPMAN us James Robles MD LAB URINE ORDERABLES Final Resu lt [facility] [place] [address] * XR Chest 1 View (10/07/2024 5:18 AM CLIPMAN) Anatomical Region Laterality Modality Body, Chest N/A Computed Radiogr aphy 10/07/2024 7:05 AM CLIPMAN Impressions 10/07/2024 7:05 AM CLIPMAN The current study is compared with the prior radiograph dated ??10/02/2024. ??Spine stimulator is present. ??The heart and mediastinal contours are normal. ??There is no mass or consolidation. There is no lymphadenopathy. ??There are no pleural effusions. ??There is no pneumothorax. There is no interval change. Electronically signed by: Lauren Cantrell M.D. Narrative 10/07/2024 7:05 AM CLIPMAN EXAMINATION: 1 view chest radiograph Procedure Note [...] (ABNORMAL) Lactate, whole blood (10/06/2024 9:30 PM CLIPMAN) Lactate, bld 2.7(H) 0.7 - 2.0 mmol/L Blood 10/06/2024 9:30 PM CLIPMAN 10/06/2024 9:30 PM CLIPMAN us Tamanna Porras [employer] LAB BLOOD ORDERABLES Final Resul t [facility] Department [place] [address] * eGFR (10/06/2024 9:16 PM CLIPMAN) eGFR 61 >=60 mL/min/1. 73 m2 Comment: [...] last reviewed 2021. Blood 10/06/2024 9:16 PM CLIPMAN 10/06/2024 9:34 PM CLIPMAN us James Robles MD LAB BLOOD ORDERABLES Final Resu lt Performing Organization Address City/[facility]/ZIP Co de Phone Number [facility] Department [place] [address] * (ABNORMAL) CBC without differential (10/06/2024 9:16 PM CLIPMAN) WBC 17.1(H) 3.8 - 9.9 K/cumm Hgb 10.8(L) 13.0 - 17.5 g/dL [facility] Hct 30.7(L) 38.9 - 50.3 % [facility] Plt 256 150 - 400 K/cumm [facility] MPV 10.3 9.1 - 12.3 fL [facility] RBC 3.40(L) 4.30 - 5.80 M/cumm [facility] MCV 90.3 81.3 - 96.4 fL [facility] MCH 31.8 27.1 - 33.3 pg [facility] MCHC 35.2 32.3 - 35.7 g/dL [facility] RDW CV 13.1 11.1 - 14.9 % [facility] RDW SD 43.2 35.7 - 48.1 fL [facility] NRBC abs 0.00 0.00 - 0.01 K/cumm [facility] Blood 10/06/2024 9:16 PM CLIPMAN 10/06/2024 9:34 PM CLIPMAN us Maria Isabel Unger NP LAB BLOOD ORDERABLES Final Result Performing Organization Address City/[facility]/ZIP Co de Phone Number [facility] Department [place] [address] * (ABNORMAL) Basic metabolic panel (10/06/2024 9:16 PM CLIPMAN) Pathologist [facility] Sodium 140 135 - 145 mmol/L Potassium, pl 4.7 3.3 - 4.9 mmol/L [facility] Chloride 105 97 - 110 mmol/L [facility] CO2 25 22 - 32 mmol/L [facility] Anion gap 10 2 - 15 mmol/L [facility] BUN 32(H) 6 - 25 mg/dL [facility] Creatinine 1.22 0.80 - 1.30 mg/dL [facility] Glucose 152 70 - 199 mg/dL [facility] Comment: Interpretive Data Fasting glucose >/= [...] 2022. Calcium 8.7 8.5 - 10.3 mg/dL [facility] Blood 10/06/2024 9:16 PM CLIPMAN 10/06/2024 9:34 PM CLIPMAN us James Robles MD LAB BLOOD ORDERABLES Final Resu lt [facility] Department [place] [address] * eGFR (10/05/2024 10:43 PM CLIPMAN) Pathologist [facility] eGFR 67 >=60 mL/min/1. 73 m2 Comment: [...] reviewed 2021. Blood 10/05/2024 10:4 3 PM CLIPMAN 10/05/2024 11:10 PM CLIPMAN us James Robles MD LAB BLOOD ORDERABLES Final Resu lt [facility] Department [place] [address] * (ABNORMAL) Lactate, whole blood (10/05/2024 10:43 PM CLIPMAN) Lactate, bld 2.2(H) 0.7 - 2.0 mmol/L Blood 10/05/2024 10:4 3 PM CLIPMAN 10/05/2024 11:07 PM CLIPMAN us Tamanna Porras NP LAB BLOOD ORDERABLES [facility] [place] [address] * (ABNORMAL) CBC without differential (10/05/2024 10:43 PM CLIPMAN) WBC 16.5(H) 3.8 - 9.9 K/cumm Hgb 10.5(L) 13.0 - 17.5 g/dL [facility] Hct 31.4(L) 38.9 - 50.3 % [facility] Plt 238 150 - 400 K/cumm [facility] MPV 10.7 9.1 - 12.3 fL [facility] RBC 3.37(L) 4.30 - 5.80 M/cumm [facility] MCV 93.2 81.3 - 96.4 fL [facility] MCH 31.2 27.1 - 33.3 pg [facility] MCHC 33.4 32.3 - 35.7 g/dL [facility] RDW CV 13.3 11.1 - 14.9 % [facility] RDW SD 45.3 35.7 - 48.1 fL [facility] NRBC abs 0.00 0.00 - 0.01 K/cumm [facility] Blood 10/05/2024 10:4 3 PM CLIPMAN 10/05/2024 11:11 PM CLIPMAN us Maria Isabel Unger NP LAB BLOOD ORDERABLES Final Result [facility] Department [place] [address] * (ABNORMAL) Basic metabolic panel (10/05/2024 10:43 PM CLIPMAN) Sodium 143 135 - 145 mmol/L Potassium, pl 4.4 3.3 - 4.9 mmol/L [facility] Chloride 108 97 - 110 mmol/L [facility] CO2 25 22 - 32 mmol/L [facility] Anion gap 10 2 - 15 mmol/L [facility] BUN 30(H) 6 - 25 mg/dL [facility] Creatinine 1.14 0.80 - 1.30 mg/dL [facility] Glucose 139 70 - 199 mg/dL [facility] Comment: Interpretive Data Fasting glucose >/= [...] 2022. Calcium 8.8 8.5 - 10.3 mg/dL [facility] Blood 10/05/2024 10:4 3 PM CLIPMAN 10/05/2024 11:10 PM CLIPMAN James Robles MD LAB BLOOD ORDERABLES Final Resu lt Performing Organization Address City/[facility]/ZIP Co de Phone Number [facility] Department [place] [address] * (ABNORMAL) Troponin I high-sensitivity (10/04/2024 8:49 PM CLIPMAN) Pathologist [facility] Trop I hs 128(H) <=35 ng/L Comment: Interpretive Data For further hscTnI resources including the diagnostic algorithm and an aid in interpretation, copy and paste this link: https://bjhlab.testcatalog.org/show/hsTrop-1 Current Interpretive Data last revised 2020. Blood 10/04/2024 8:49 PM CLIPMAN 10/04/2024 9:06 PM CLIPMAN us Tamanna Porras NP LAB BLOOD ORDERABLES Final Resul t Performing Organization Address [facility]/ZIP Co de Phone Number [facility] Department [place] [address] * Calcium, ionized, whole blood (10/04/2024 8:49 PM CLIPMAN) Ca, ionized, bld 5.10 4.50 - 5.10 mg/dL Blood 10/04/2024 8:49 PM CLIPMAN 10/04/2024 9:00 PM CLIPMAN us Tamanna Porras [employer] LAB BLOOD ORDERABLES Final Resul t Performing Organization Address City/[facility] Co de Phone Number REYNALDO MAHAR[facility] Department [place] [address] * (ABNORMAL) eGFR (10/04/2024 8:49 PM CLIPMAN) eGFR 57(L) >=60 mL/min/1. 73 m2 Comment: [...] last reviewed 2021. Blood 10/04/2024 8:49 PM CLIPMAN 10/04/2024 9:06 PM CLIPMAN us James Robles MD LAB BLOOD ORDERABLES Final Resu lt Performing Organization Address [facility]/ZIP Co de Phone Number REYNALDO MAHARAJ [facility] Department [place] [address] * (ABNORMAL) Differential, auto (10/04/2024 8:49 PM CLIPMAN) Neutrophil abs 20.1(H) 1.5 - 6.5 K/cumm Imm gran abs 0.3(H) 0.0 - 0.1 K/cumm [facility] Lymphocyte abs 1.2 0.8 - 3.3 K/cumm [facility] Monocyte abs 1.4(H) 0.2 - 0.8 K/cumm [facility] Eosinophil abs 0.0 0.0 - 0.5 K/cumm [facility] Basophil abs 0.0 0.0 - 0.1 K/cumm [facility] Neutrophil pct 87.4 % [facility] Comment: Consistent with previous result Interpretive Data Percent cell count reference ranges are not reported, since discordance with absolute values may lead to misinterpretation of CBC data. Current Interpretive Data was last revised on 2018. Imm gran pct 1.3 % [facility] Comment: Interpretive Data Percent cell count reference ranges are not reported, since discordance with absolute values may lead to misinterpretation of CBC data. Current Interpretive Data was last revised on 2018. Lymphocyte pct 5.2 % [facility] Comment: Interpretive Data Percent cell count reference ranges are not reported, since discordance with absolute values may lead to misinterpretation of CBC data. Current Interpretive Data was last revised on 2018. Monocyte pct 6.0 % [facility] Comment: Interpretive Data Percent cell count reference ranges are not reported, since discordance with absolute values may lead to misinterpretation of CBC data. Current Interpretive Data was last revised on 2018. Eosinophil pct 0.0 % [facility] Comment: Interpretive Data Percent cell count reference ranges are not reported, since discordance with absolute values may lead to misinterpretation of CBC data. Current Interpretive Data was last revised on 2018. Basophil pct 0.1 % [facility] Comment: Interpretive Data Percent cell count reference ranges are not reported, since discordance with absolute values may lead to misinterpretation of CBC data. Current Interpretive Data was last revised on 2018. Blood 10/04/2024 8:49 PM CLIPMAN 10/04/2024 9:06 PM CLIPMAN James Robles MD LAB BLOOD ORDERABLES Final Resu lt [facility] Department [place] [address] * (ABNORMAL) CBC with auto differential (10/04/2024 8:49 PM CLIPMAN) Pathologist [facility] WBC 23.0(H) 3.8 - 9.9 K/cumm Hgb 10.5(L) 13.0 - 17.5 g/dL [facility] Hct 31.0(L) 38.9 - 50.3 % [facility] Plt 207 150 - 400 K/cumm [facility] MPV 10.2 9.1 - 12.3 fL [facility] RBC 3.34(L) 4.30 - 5.80 M/cumm [facility] MCV 92.8 81.3 - 96.4 fL [facility] MCH 31.4 27.1 - 33.3 pg [facility] MCHC 33.9 32.3 - 35.7 g/dL [facility] RDW CV 13.6 11.1 - 14.9 % [facility] RDW SD 45.7 35.7 - 48.1 fL [facility] NRBC abs 0.00 0.00 - 0.01 K/cumm [facility] Blood 10/04/2024 8:49 PM CLIPMAN 10/04/2024 9:06 PM CLIPMAN James Robles MD LAB BLOOD ORDERABLES Final Resu lt [facility] [place] [address] * (ABNORMAL) Lactate, whole blood (10/04/2024 8:49 PM CLIPMAN) Lactate, bld 2.5(H) 0.7 - 2.0 mmol/L Blood 10/04/2024 8:49 PM CLIPMAN 10/04/2024 9:00 PM CLIPMAN us Tamanna Porras NP LAB BLOOD ORDERABLES Final Resul t Performing Organization Address City/[facility]/ZIP Co de Phone Number [facility] Department [place] [address] * (ABNORMAL) Basic metabolic panel (10/04/2024 8:49 PM CLIPMAN) Pathologist [facility] Sodium 144 135 - 145 mmol/L Potassium, pl 4.4 3.3 - 4.9 mmol/L [facility] Chloride 113(H) 97 - 110 mmol/L [facility] CO2 22 22 - 32 mmol/L [facility] Anion gap 9 2 - 15 mmol/L [facility] BUN 24 6 - 25 mg/dL [facility] Creatinine 1.30 0.80 - 1.30 mg/dL [facility] Glucose 168 70 - 199 mg/dL [facility] Comment: Interpretive Data Fasting glucose >/= [...] 2022. Calcium 8.4(L) 8.5 - 10.3 mg/dL [facility] Blood 10/04/2024 8:49 PM CLIPMAN 10/04/2024 9:06 PM CLIPMAN us James Robles MD LAB BLOOD ORDERABLES Final Resu lt Performing Organization Address [facility] Co de Phone Number [facility] Department [place] [address] * (ABNORMAL) Urinalysis reflex to microscopic and culture Urine (10/04/2024 1:30 PM CLIPMAN) Color, ur Straw Yellow Clarity, ur Clear Clear [facility] Specific gravity, ur 1.028 1.003 - 1.030 [facility] pH, urine 6.0 [facility] Comment: Interpretive Data ? Urine pH is affected by diet, medications, systemic acid-base disturbances, and renal tubular function. ??pH may affect urinary stone formation. ??For example, urine pH below 6.0 may help reduce the tendency for calcium phosphate stones and pH greater than 6.0 may reduce the tendency for uric acid stone formation. Source: [facility] Current Interpretive Data was last revised on 2017 Protein, ur ql 1+(A) Negative [facility] Glucose, ur ql Negative Negative [facility] Ketones, ur Negative Negative [facility] Bilirubin, ur Negative Negative [facility] Blood, ur 3+(A) Negative [facility] Urobilinogen, ur <2.0 <2.0 mg/dL [facility] Nitrite, ur Negative Negative [facility] Leukocyte esterase, ur Negative Negative [facility] UA reflex comment Reflex to microscopic UA will be performed. [facility] Urine 10/04/2024 1:30 PM CLIPMAN 10/04/2024 4:16 PM CLIPMAN us Tamanna Porras NP LAB MICROBIOLOGY - GENERAL ORDER TALYA Final Result [facility] Department [place] [address] * (ABNORMAL) Urinalysis, microscopic only (10/04/2024 1:30 PM CLIPMAN) WBC, ur 0-5 0 - 5 /HPF RBC, ur >50(A) 0 - 2 /HPF [facility] Epithelial cells, squamous, ur 1-5 0 - 5 /HPF [facility] Mucous, ur Present(A) [facility] Culture Reflex Comment Reflex conditions for urine culture (WBC >10) not met. [facility] Urine 10/04/2024 1:30 PM CLIPMAN 10/04/2024 4:15 PM CLIPMAN Tamanna Porras [employer] LAB URINE ORDERABLES Final Resul t Performing Organization Address City/[facility] Co de Phone Number [facility] [place] [address] * (ABNORMAL) Lactate, whole blood (10/04/2024 12:12 PM CLIPMAN) Lactate, bld 3.7(H) 0.7 - 2.0 mmol/L Blood 10/04/2024 12:1 2 PM CLIPMAN 10/04/2024 12:22 PM CLIPMAN Tamanna Porras [employer] LAB BLOOD ORDERABLES Final Resul t Performing Organization Address [facility] [place] [address] * (ABNORMAL) Troponin I high-sensitivity 2-hour (10/04/2024 12:06 PM CLIPMAN) Pathologist [facility] Trop I hs 132(H) <=35 ng/L Comment: Interpretive Data For further [facility] resources including the diagnostic algorithm and an aid in interpretation, copy and paste this link: https://bjhlab.testcatalog.org/show/hsTrop-[email or web address] Current Interpretive Data last revised 2020. Trop I hs pct delta -9 % [facility] Trop I hs interp Equivocal [facility] Blood 10/04/2024 12:0 6 PM CLIPMAN 10/04/2024 12:30 PM CLIPMAN Geraldine Leary [employer] LAB BLOOD ORDERABLES Final Result Performing Organization Address [facility] [place] [address] * Influenza A/B, RSV, and COVID-19 PCR Nasopharyngeal (10/04/2024 9:06 AM CLIPMAN) Pathologist [facility] COVID-19 RNA Negative Negative [facility] Influenza A RNA Negative Negative [facility] Influenza B RNA Negative Negative [facility] RSV RNA Negative Negative [facility] Comment: Interpretive data: Testing performed by [facility] ([phone]). This test is performed using the [employer] Xpert Xpress CoV-2/Flu/RSV plus assay. This is a multiplex, real-time reverse transcriptase PCR assay intended for the qualitative detection of nucleic acid from SARS-CoV-2, influenza A, influenza B, and respiratory syncytial virus. This assay has been cleared by the [place] Food and Drug administration. The performance characteristics have been verified by the [facility]. ??Results must be considered in the clinical context, and a negative result does not rule out infection. Interpretive Data last revised 2023 Nasopharyngeal 10/04/2024 9: 06 AM CLIPMAN 10/04/2024 10:22 AM CLIPMAN Narrative [facility] - 10/04/2024 11:17 AM CLIPMAN Is the Patient experiencing symptoms consistent with COVID?->Unknown Geraldine Leary [employer]ER LAB MICROBIOLOGY - [facility] ORDERABLES Final Result [facility] Department [place] [address] [facility] * (ABNORMAL) Troponin I high-sensitivity series (baseline, 2hr, 4hr, 6hr) (10/04/2024 9:06 AM CLIPMAN) Pathologist [facility] Trop I hs 145(H) <=35 ng/L Comment: Interpretive Data For further hscTnI resources including the diagnostic algorithm and an aid in interpretation, copy and paste this link: https://bjhlab.testcatalog.org/show/hsTrop-1 Current Interpretive Data last revised 2020. Blood 10/04/2024 9:06 AM CLIPMAN 10/04/2024 9:58 AM CLIPMAN Geraldine Leary NP LAB BLOOD ORDERABLES Final Result Performing Organization Address [facility] de Phone Number [facility] [address] * (ABNORMAL) Lactate (10/04/2024 9:06 AM CLIPMAN) Lactate 4.1(C) 0.7 - 2.0 mmol/L Blood 10/04/2024 9:06 AM CLIPMAN 10/04/2024 9:58 AM CLIPMAN Geraldine Leary NP LAB BLOOD ORDERABLES Final Result Performing Organization Address [facility] de Phone Number [facility] [place] [address] * Critical Result Callback Chemistry (10/04/2024 9:06 AM CLIPMAN) Date Notified [id number] Time Notified 1024 [facility] TestName Lactate REYNALDO [facility] Called/Read Back Arin JACOBS [facility] Credentials RN REYNALDO MAHARAJ Called By NEAL MAHARAJ Blood 10/04/2024 9:06 AM CLIPMAN 10/04/2024 9:58 AM CLIPMAN Geraldine Leary NP LAB BLOOD ORDERABLES Final Result Performing Organization Address [facility] Co de Phone Number [facility] [place] [address] * eGFR (10/03/2024 10:36 PM CLIPMAN) eGFR 61 >=60 mL/min/1. 73 m2 Comment: [...] reviewed 2021. Blood 10/03/2024 10:3 6 PM CLIPMAN 10/03/2024 10:52 PM CLIPMAN us James Robles MD LAB BLOOD ORDERABLES Final Resu lt [facility] Department [place] [address] * (ABNORMAL) Basic metabolic panel (10/03/2024 10:36 PM CLIPMAN) Pathologist [facility] Sodium 142 135 - 145 mmol/L Potassium, pl 4.4 3.3 - 4.9 mmol/L [facility] Chloride 113(H) 97 - 110 mmol/L [facility] CO2 22 22 - 32 mmol/L [facility] Anion gap 7 2 - 15 mmol/L [facility] BUN 17 6 - 25 mg/dL [facility] Creatinine 1.23 0.80 - 1.30 mg/dL [facility] Glucose 162 70 - 199 mg/dL [facility] Comment: Interpretive Data Fasting glucose >/= [...] 2022. Calcium 8.1(L) 8.5 - 10.3 mg/dL [facility] Blood 10/03/2024 10:3 6 PM CLIPMAN 10/03/2024 10:52 PM CLIPMAN us James Robles MD LAB BLOOD ORDERABLES Final Resu lt [facility] Department [place] [address] * (ABNORMAL) Differential, auto (10/03/2024 8:30 PM CLIPMAN) Pathologist [facility] Neutrophil abs 22.7(H) 1.5 - 6.5 K/cumm Imm gran abs 0.3(H) 0.0 - 0.1 K/cumm [facility] Lymphocyte abs 1.2 0.8 - 3.3 K/cumm [facility] Monocyte abs 2.1(H) 0.2 - 0.8 K/cumm [facility] Eosinophil abs 0.0 0.0 - 0.5 K/cumm [facility] Basophil abs 0.0 0.0 - 0.1 K/cumm [facility] Neutrophil pct 86.2 % [facility] Comment: Consistent with previous result Interpretive Data Percent cell count reference ranges are not reported, since discordance with absolute values may lead to misinterpretation of CBC data. Current Interpretive Data was last revised on 2018. Imm gran pct 1.1 % [facility] Comment: Interpretive Data Percent cell count reference ranges are not reported, since discordance with absolute values may lead to misinterpretation of CBC data. Current Interpretive Data was last revised on 2018. Lymphocyte pct 4.6 % [facility] Comment: Interpretive Data Percent cell count reference ranges are not reported, since discordance with absolute values may lead to misinterpretation of CBC data. Current Interpretive Data was last revised on 2018. Monocyte pct 8.0 % [facility] Comment: Interpretive Data Percent cell count reference ranges are not reported, since discordance with absolute values may lead to misinterpretation of CBC data. Current Interpretive Data was last revised on 2018. Eosinophil pct 0.0 % [facility] Comment: Interpretive Data Percent cell count reference ranges are not reported, since discordance with absolute values may lead to misinterpretation of CBC data. Current Interpretive Data was last revised on 2018. Basophil pct 0.1 % [facility] Comment: Interpretive Data Percent cell count reference ranges are not reported, since discordance with absolute values may lead to misinterpretation of CBC data. Current Interpretive Data was last revised on 2018. Blood 10/03/2024 8:30 PM CLIPMAN 10/03/2024 9:05 PM CLIPMAN us James Robles MD LAB BLOOD ORDERABLES Final Resu lt [facility] Department [place] [address] * (ABNORMAL) CBC with auto differential (10/03/2024 8:30 PM CLIPMAN) WBC 26.3(H) 3.8 - 9.9 K/cumm Hgb 11.3(L) 13.0 - 17.5 g/dL [facility] Hct 33.7(L) 38.9 - 50.3 % [facility] Plt 302 150 - 400 K/cumm [facility] MPV 10.4 9.1 - 12.3 fL [facility] RBC 3.61(L) 4.30 - 5.80 M/cumm [facility] MCV 93.4 81.3 - 96.4 fL [facility] MCH 31.3 27.1 - 33.3 pg [facility] MCHC 33.5 32.3 - 35.7 g/dL [facility] RDW CV 13.2 11.1 - 14.9 % [facility] RDW SD 45.1 35.7 - 48.1 fL [facility] NRBC abs 0.00 0.00 - 0.01 K/cumm [facility] Blood 10/03/2024 8:30 PM CLIPMAN 10/03/2024 9:05 PM CLIPMAN us James Robles MD LAB BLOOD ORDERABLES Final Resu lt [facility] Department [place] [address] * eGFR (10/03/2024 8:25 PM CLIPMAN) eGFR 60 >=60 mL/min/1. 73 m2 Comment: [...] last reviewed 2021. Blood 10/03/2024 8:25 PM CLIPMAN 10/03/2024 9:05 PM CLIPMAN James Robles MD LAB BLOOD ORDERABLES Final Resu lt [facility] Department [place] [address] * (ABNORMAL) Basic metabolic panel (10/03/2024 8:25 PM CLIPMAN) Pathologist [facility] Sodium 143 135 - 145 mmol/L Potassium, pl 4.1 3.3 - 4.9 mmol/L [facility] Chloride 113(H) 97 - 110 mmol/L [facility] CO2 20(L) 22 - 32 mmol/L [facility] Anion gap 10 2 - 15 mmol/L [facility] BUN 17 6 - 25 mg/dL [facility] Creatinine 1.25 0.80 - 1.30 mg/dL [facility] Glucose 163 70 - 199 mg/dL [facility] Comment: Interpretive Data Fasting glucose >/= [...] 2022. Calcium 8.0(L) 8.5 - 10.3 mg/dL [facility] Blood 10/03/2024 8:25 PM CLIPMAN 10/03/2024 9:05 PM CLIPMAN James Robles MD LAB BLOOD ORDERABLES Final Resu lt Performing Organization Address City/[facility]/ZIP Co de Phone Number [facility] Department [place] [address] * ECG 12 lead (10/03/2024 2:19 PM CLIPMAN) Ventricular Rate EKG/Min 96 BPM [facility] Atrial Rate 96 BPM [facility] MI-Interval (MSEC) 242 ms [facility] QRS-Interval (MSEC) 110 ms [facility] QT-Interval (MSEC) 364 ms [facility] QTc 459 ms [facility] P [place] 69 degrees [facility] R [place] 76 degrees [facility] T [place] 1 degrees [facility] Diagnosis Sinus rhythm with 1st degree A-V block Nonspecific ST and T wave abnormality Abnormal ECG When compared with ECG of 10-MAY-2008 09:35, MI interval has increased Vent. rate has increased BY ??35 BPM Non-specific change in ST segment in Inferior leads ST now depressed in Anterolateral leads Nonspecific T wave abnormality now evident in Inferior leads QT has lengthened Confirmed by JACOBO CARSON M.D ([id number]) on 10/04/2024 10:42:26 AM [facility] 10/03/2024 2:19 PM CLIPMAN 10/04/2024 10:42 AM CLIPMAN James Robles MD ECG ORDERABLES Final Result Performing Organization Address City/[facility]/ZIP Co de Phone Number [facility] * POCT glucose (10/03/2024 2:07 PM CLIPMAN) [facility] Glucose, POC 128 70 - 199 mg/dL Blood 10/03/2024 2:07 PM CLIPMAN 10/03/2024 2:07 PM CLIPMAN James Robles MD LAB POCT ORDERABLES - DEVICE Fi nal Result [facility] [place] [address] * (ABNORMAL) eGFR (10/03/2024 4:58 AM CLIPMAN) [facility] eGFR 57(L) >=60 mL/min/1. 73 m2 Comment: [...] last reviewed 2021. Blood 10/03/2024 4:58 AM CLIPMAN 10/03/2024 5:32 AM CLIPMAN us James Robles MD LAB BLOOD ORDERABLES Final Resu lt [facility] Department of Laboratories [place], [place] [id number] * (ABNORMAL) Differential, auto (10/03/2024 4:58 AM CLIPMAN) Neutrophil abs 28.0(H) 1.5 - 6.5 K/cumm Imm gran abs 0.2(H) 0.0 - 0.1 K/cumm [facility] Lymphocyte abs 0.9 0.8 - 3.3 K/cumm [facility] Monocyte abs 1.5(H) 0.2 - 0.8 K/cumm [facility] Eosinophil abs 0.0 0.0 - 0.5 K/cumm [facility] Basophil abs 0.1 0.0 - 0.1 K/cumm [facility] Neutrophil pct 91.6 % [facility] Comment: Interpretive Data Percent cell count reference ranges are not reported, since discordance with absolute values may lead to misinterpretation of CBC data. Current Interpretive Data was last revised on 2018. Imm gran pct 0.6 % [facility] Comment: Interpretive Data Percent cell count reference ranges are not reported, since discordance with absolute values may lead to misinterpretation of CBC data. Current Interpretive Data was last revised on 2018. Lymphocyte pct 2.8 % [facility] Comment: Interpretive Data Percent cell count reference ranges are not reported, since discordance with absolute values may lead to misinterpretation of CBC data. Current Interpretive Data was last revised on 2018. Monocyte pct 4.8 % [facility] Comment: Interpretive Data Percent cell count reference ranges are not reported, since discordance with absolute values may lead to misinterpretation of CBC data. Current Interpretive Data was last revised on 2018. Eosinophil pct 0.0 % [facility] Comment: Interpretive Data Percent cell count reference ranges are not reported, since discordance with absolute values may lead to misinterpretation of CBC data. Current Interpretive Data was last revised on 2018. Basophil pct 0.2 % [facility] Comment: Interpretive Data Percent cell count reference ranges are not reported, since discordance with absolute values may lead to misinterpretation of CBC data. Current Interpretive Data was last revised on 2018. Blood 10/03/2024 4:58 AM CLIPMAN 10/03/2024 5:32 AM CLIPMAN us James Robles MD LAB BLOOD ORDERABLES Final Resu lt [facility] Department [place] [address] * (ABNORMAL) CBC with auto differential (10/03/2024 4:58 AM CLIPMAN) WBC 30.5(H) 3.8 - 9.9 K/cumm Hgb 13.0 13.0 - 17.5 g/dL [facility] Hct 38.0(L) 38.9 - 50.3 % [facility] Plt 346 150 - 400 K/cumm [facility] MPV 10.2 9.1 - 12.3 fL [facility] RBC 4.14(L) 4.30 - 5.80 M/cumm [facility] MCV 91.8 81.3 - 96.4 fL [facility] MCH 31.4 27.1 - 33.3 pg [facility] MCHC 34.2 32.3 - 35.7 g/dL [facility] RDW CV 12.9 11.1 - 14.9 % [facility] RDW SD 43.0 35.7 - 48.1 fL [facility] NRBC abs 0.00 0.00 - 0.01 K/cumm [facility] Blood 10/03/2024 4:58 AM CLIPMAN 10/03/2024 5:32 AM CLIPMAN James Robles MD LAB BLOOD ORDERABLES Final Resu lt [facility] Department [place] [address] * (ABNORMAL) Basic metabolic panel (10/03/2024 4:58 AM CLIPMAN) Sodium 143 135 - 145 mmol/L Potassium, pl 4.7 3.3 - 4.9 mmol/L [facility] Chloride 111(H) 97 - 110 mmol/L [facility] CO2 22 22 - 32 mmol/L [facility] Anion gap 10 2 - 15 mmol/L [facility] BUN 14 6 - 25 mg/dL [facility] Creatinine 1.29 0.80 - 1.30 mg/dL [facility] Glucose 146 70 - 199 mg/dL [facility] Comment: Interpretive Data Fasting glucose >/= [...] 2022. Calcium 8.3(L) 8.5 - 10.3 mg/dL [facility] Blood 10/03/2024 4:58 AM CLIPMAN 10/03/2024 5:32 AM CLIPMAN us James Robles MD LAB BLOOD ORDERABLES Final Resu lt [facility] Department [place] [address] * XR chest 1 view (Portable) (10/02/2024 9:08 PM CLIPMAN) Anatomical Region Laterality Modality Body, Chest N/A Computed Radiogr aphy 10/03/2024 8:28 AM CLIPMAN Impressions 10/03/2024 4:05 PM CLIPMAN No priors available for comparison. Spinal stimulator [...] James MD, PHD Narrative 10/03/2024 4:05 PM CLIPMAN EXAMINATION: 1 view chest radiograph Procedure Note [...] Electronically signed by: Saturnino James MD, PHD us James Robles MD IMG XR PROCEDURES Final Result * (ABNORMAL) eGFR (10/02/2024 4:01 PM CLIPMAN) eGFR 57(L) >=60 mL/min/1. 73 m2 Comment: [...] last reviewed 2021. Blood 10/02/2024 4:01 PM CLIPMAN 10/02/2024 4:17 PM CLIPMAN James Robles MD LAB BLOOD ORDERABLES Final Resu lt [facility] [place] [address] * (ABNORMAL) Differential, auto (10/02/2024 4:01 PM CLIPMAN) Neutrophil abs 14.1(H) 1.5 - 6.5 K/cumm Imm gran abs 0.1 0.0 - 0.1 K/cumm [facility] Lymphocyte abs 1.3 0.8 - 3.3 K/cumm [facility] Monocyte abs 0.7 0.2 - 0.8 K/cumm [facility] Eosinophil abs 0.0 0.0 - 0.5 K/cumm [facility] Basophil abs 0.1 0.0 - 0.1 K/cumm [facility] Neutrophil pct 86.5 % [facility] Comment: Interpretive Data Percent cell count reference ranges are not reported, since discordance with absolute values may lead to misinterpretation of CBC data. Current Interpretive Data was last revised on 2018. Imm gran pct 0.7 % [facility] Comment: Interpretive Data Percent cell count reference ranges are not reported, since discordance with absolute values may lead to misinterpretation of CBC data. Current Interpretive Data was last revised on 2018. Lymphocyte pct 8.0 % [facility] Comment: Interpretive Data Percent cell count reference ranges are not reported, since discordance with absolute values may lead to misinterpretation of CBC data. Current Interpretive Data was last revised on 2018. Monocyte pct 4.2 % [facility] Comment: Interpretive Data Percent cell count reference ranges are not reported, since discordance with absolute values may lead to misinterpretation of CBC data. Current Interpretive Data was last revised on 2018. Eosinophil pct 0.2 % [facility] Comment: Interpretive Data Percent cell count reference ranges are not reported, since discordance with absolute values may lead to misinterpretation of CBC data. Current Interpretive Data was last revised on 2018. Basophil pct 0.4 % [facility] Comment: Interpretive Data Percent cell count reference ranges are not reported, since discordance with absolute values may lead to misinterpretation of CBC data. Current Interpretive Data was last revised on 2018. Blood 10/02/2024 4:01 PM CLIPMAN 10/02/2024 4:17 PM CLIPMAN James Robles MD LAB BLOOD ORDERABLES Final Resu lt [facility] Department [place] [address] * (ABNORMAL) CBC with auto differential (10/02/2024 4:01 PM CLIPMAN) [facility] WBC 16.3(H) 3.8 - 9.9 K/cumm Hgb 12.7(L) 13.0 - 17.5 g/dL [facility] Hct 38.7(L) 38.9 - 50.3 % [facility] Plt 255 150 - 400 K/cumm [facility] MPV 9.8 9.1 - 12.3 fL [facility] RBC 4.10(L) 4.30 - 5.80 M/cumm [facility] MCV 94.4 81.3 - 96.4 fL [facility] MCH 31.0 27.1 - 33.3 pg [facility] MCHC 32.8 32.3 - 35.7 g/dL [facility] RDW CV 12.9 11.1 - 14.9 % [facility] RDW SD 44.5 35.7 - 48.1 fL [facility] NRBC abs 0.00 0.00 - 0.01 K/cumm [facility] Blood 10/02/2024 4:01 PM CLIPMAN 10/02/2024 4:17 PM CLIPMAN us James Robles MD LAB BLOOD ORDERABLES Final Resu lt [facility] Department [place] [address] * (ABNORMAL) aPTT (10/02/2024 4:01 PM CLIPMAN) Pathologist [facility] aPTT 27(L) 28 - 38 sec Comment: Interpretive Data Heparin therapeutic range: 66.0 - 100.0 seconds. Range based on correlation with therapeutic heparin activity range of 0.3 - 0.7 Units/mL. Current interpretive data was last revised on 2023. Blood 10/02/2024 4:01 PM CLIPMAN 10/02/2024 4:16 PM CLIPMAN James Robles MD LAB BLOOD ORDERABLES Final Resu lt Performing Organization Address [facility] de Phone Number [facility] [place] [address] * Protime-INR (10/02/2024 4:01 PM CLIPMAN) PT 12.4 9.7 - 13.0 sec INR 1.14 0.90 - 1.20 [facility] Comment: Interpretive data Oral anticoagulant therapeutic ranges: Venous thromboembolism prophylaxis or treatment: 2.0-3.0 CARDIOLOGY Standard range: 2.0-3.0 High-intensity range: 2.5-3.5 Refer to indication-specific guidelines for appropriate target ranges for prosthetic heart valve replacement. Current interpretive data was last revised on 2019. Blood 10/02/2024 4:01 PM CLIPMAN 10/02/2024 4:16 PM CLIPMAN Result [facility] James Robles MD LAB BLOOD ORDERABLES Final Resu lt Performing Organization Address [facility] de Phone Number [facility] [place] [address] * Phosphorus (10/02/2024 4:01 PM CLIPMAN) Phosphorus, pl 2.4 2.3 - 4.5 mg/dL Blood 10/02/2024 4:01 PM CLIPMAN 10/02/2024 4:17 PM CLIPMAN James Robles MD LAB BLOOD ORDERABLES Final Resu lt Performing Organization Address [facility] de Phone Number [facility] Department [place] [address] * Magnesium (10/02/2024 4:01 PM CLIPMAN) Pathologist [facility] Magnesium 1.9 1.4 - 2.5 mg/dL Blood 10/02/2024 4:01 PM CLIPMAN 10/02/2024 4:17 PM CLIPMAN James Robles MD LAB BLOOD ORDERABLES Final Resu lt [facility] Department [place] [address] * (ABNORMAL) Comprehensive metabolic panel (10/02/2024 4:01 PM CLIPMAN) Pathologist [facility] Sodium 141 135 - 145 mmol/L Potassium, pl 4.2 3.3 - 4.9 mmol/L [facility] Chloride 112(H) 97 - 110 mmol/L [facility] CO2 22 22 - 32 mmol/L [facility] Anion gap 7 2 - 15 mmol/L [facility] BUN 16 6 - 25 mg/dL [facility] Creatinine 1.30 0.80 - 1.30 mg/dL [facility] Glucose 118 70 - 199 mg/dL [facility] Comment: Interpretive Data Fasting glucose >/= [...] 2022. Calcium 8.3(L) 8.5 - 10.3 mg/dL [facility] Bilirubin, total 0.2 0.1 - 1.2 mg/dL [facility] Protein, pl 5.5(L) 6.5 - 8.5 g/dL [facility] Albumin 3.4(L) 3.5 - 5.0 g/dL [facility] Alk phos 64 40 - 130 Units/L [facility] ALT 19 7 - 55 Units/L [facility] AST 21 10 - 50 Units/L [facility] Blood 10/02/2024 4:01 PM CLIPMAN 10/02/2024 4:17 PM CLIPMAN us James Robles MD LAB BLOOD ORDERABLES Final Resu lt [facility] Department [place] [address] * (ABNORMAL) POC Blood Gas and Chemistries, Arterial - (10/02/2024 2:30 PM CLIPMAN) pH, Art POC 7.31(L) 7.35 - 7.45 pCO2, Art POC 41 35 - 45 mmHg [facility] pO2, Art POC 264(H) 83 - 108 mmHg [facility] Na, POC 140 135 - 145 mmol/L [facility] K POC 4.0 3.3 - 4.9 mmol/L [facility] Comment: Interpretive Data Not all point of care methods assess for hemolysis. Confirm with instrument and retest K+ if not consistent with clinical signs and symptoms. Current Interpretive Data was last revised on 2024. Cl, POC 111(H) 97 - 110 mmol/L [facility] Ionized Ca, POC 4.86 4.50 - 5.10 mg/dL [facility] Glucose, POC 104 70 - 199 mg/dL [facility] Lactate, POC 1.1 0.7 - 2.2 mmol/L [facility] SO2 (cas) arterial 100(H) 90 - 95 % [facility] Base excess, POC -5.4 mmol/L [facility] Hct, POC 37.0(L) 41.4 - 51.6 % [facility] Total Hb, POC 12.4(L) 13.8 - 17.2 g/dL [facility] Blood 10/02/2024 2:30 PM CLIPMAN 10/02/2024 2:30 PM CLIPMAN James Robles MD LAB POCT ORDERABLES - DEVICE Fi nal Result Performing Organization Address City/[facility]/ZIP Co de Phone Number [facility] Department [place] [address] * FL Fluoroscopy < 1 Hour (10/02/2024 2:00 PM CLIPMAN) Narrative [email or web address] - 10/03/2024 5:04 PM CLIPMAN The images from this study are not interpreted by Radiology. ??Please refer to the physician's procedure / OR operative note. James Robles MD IMG FLUOROSCOPY PROCEDURES Cammy l Result Performing Organization Address [facility] Co de Phone Number [email or web address] * Surgical pathology (10/02/2024 12:15 PM CLIPMAN) Soft tissue 10/02/2024 12:1 5 PM CLIPMAN 10/02/2024 3:15 PM CLIPMAN Narrative 10/06/2024 2:00 PM CLIPMAN [facility] [place] [address] NEUROPATHOLOGY REPORT FINAL Patient Name:LILI DELGADOAddress:[address] [place] [address] CTService:NeurosurgeryAccession #:[id number], [place] ??[id number]:[facility] OR POD 5Taken:10/02/2024Gender: MMRN :[id number]:4DOB:1950 (Age: 74)Hospital #:[id number]:10/02/2024atient Type:[facility] InpatientReported:10/06/2024 ? Physician(s): Abelardo Tijerina M.D. DIAGNOSIS: Soft tissue, arachnoid cyst wall, excision ? - Fragments of paucicellular tissue, consistent with an arachnoid cyst wall (see comment) brcr/10/05/2024 09:33 By this signature, I attest that [...] Surgical Pathology report is available electronically in [employer]. The performance characteristics of some immunohistochemical stains, fluorescence in-situ hybridization tests and immunophenotyping by flow cytometry cited in this report (if any) were determined by the Surgical Pathology Department at [facility] as part of an ongoing director of quality control program and in compliance with federally mandated [...] determined by the Surgical Pathology Department of [facility]. ??It has not been cleared or approved by the U. S. Food and Drug Administration. James Robles MD LAB PATHOLOGY ORDERABLES Final Result * (ABNORMAL) POC Blood Gas and Chemistries, Arterial - (10/02/2024 10:43 AM CLIPMAN) pH, Art POC 7.32(L) 7.35 - 7.45 pCO2, Art POC 41 35 - 45 mmHg [facility] pO2, Art POC 239(H) 83 - 108 mmHg [facility] Na, POC 141 135 - 145 mmol/L [facility] K POC 4.0 3.3 - 4.9 mmol/L [facility] Comment: Interpretive Data Not all point of care methods assess for hemolysis. Confirm with instrument and retest K+ if not consistent with clinical signs and symptoms. Current Interpretive Data was last revised on 2024. Cl, POC 112(H) 97 - 110 mmol/L [facility] Ionized Ca, POC 4.92 4.50 - 5.10 mg/dL [facility] Glucose, POC 97 70 - 199 mg/dL [facility] Lactate, POC 1.0 0.7 - 2.2 mmol/L [facility] SO2 (cas) arterial 100(H) 90 - 95 % [facility] Base excess, POC -4.7 mmol/L [facility] Hct, POC 35.0(L) 41.4 - 51.6 % [facility] Total Hb, POC 11.8(L) 13.8 - 17.2 g/dL [facility] Blood 10/02/2024 10:4 3 AM CLIPMAN 10/02/2024 10:43 AM CLIPMAN us James Robles MD LAB POCT ORDERABLES - DEVICE Fi nal Result [facility] Department [place] [address] * Arterial Line (10/02/2024 8:32 AM CLIPMAN) Narrative Vance Morales MD - 10/02/2024 8:32 AM CLIPMAN Vance Morales MD ? 10/02/2024 ??8:32 AM [...] patient tolerated procedure well with no complications Result [facility] Marimar Carr MD PhD ANESTHESIA ORDERABLES Final Result * Airway (10/02/2024 8:31 AM CLIPMAN) Narrative Vance Morales MD - 10/02/2024 8:31 AM CLIPMAN Vance Morales MD ? 10/02/2024 ??8:32 AM [...] of attempts: 1 Planned trial extubation: yes us Marimar Carr MD PhD ANESTHESIA ORDERABLES Final Result * Type and screen (10/02/2024 6:18 AM CLIPMAN) Ramu, indirect Negative ABO Rh B Negative [facility] Blood 10/02/2024 6:18 AM CLIPMAN 10/02/2024 6:26 AM CLIPMAN Narrative [facility] - 10/02/2024 7:28 AM CLIPMAN Has the patient had Daratumumab or Isatuximab in the past 6 months?->Unknown us Sully Archer [employer] LAB BLOOD BANK TEST ORDER TALYA Final Result [facility] Department [place] [address] * TYPE AND SCREEN 14 DAY (09/13/2024 11:37 AM CDT) ABO Rh B Negative Ramu, indirect Negative [facility] Blood 09/13/2024 11:3 7 AM CDT 09/13/2024 1:50 PM CDT Narrative [facility] - 09/13/2024 3:22 PM CDT Has the patient had Daratumumab or Isatuximab in the past 6 months?->Unknown Is this test being ordered in advance for a procedure?->Yes Expected date of procedure:->10/02/24 Has the patient been transfused in the past 3 months?->No us Sully Archer NP LAB BLOOD BANK TEST ORDER TALYA Final Result Performing Organization Address City/[facility]/ZIP Co de Phone Number [facility] [place] [address] * (ABNORMAL) eGFR (09/13/2024 11:37 AM CDT) eGFR 46(L) >=60 mL/min/1. 73 m2 Comment: [...] 7 AM CDT 09/13/2024 1:48 PM CDT us James Robles MD LAB BLOOD ORDERABLES Final Resu lt Performing Organization Address City/[facility]/ZIP Co de Phone Number [facility] MAHARAJ [facility] Department [place] [address] * (ABNORMAL) Differential, auto (09/13/2024 11:37 AM CDT) Neutrophil abs 6.9(H) 1.5 - 6.5 K/cumm Imm gran abs 0.1 0.0 - 0.1 K/cumm [facility] Lymphocyte abs 2.2 0.8 - 3.3 K/cumm [facility] Monocyte abs 1.2(H) 0.2 - 0.8 K/cumm [facility] Eosinophil abs 0.1 0.0 - 0.5 K/cumm [facility] Basophil abs 0.0 0.0 - 0.1 K/cumm [facility] Neutrophil pct 66.1 % [facility] Comment: Interpretive Data Percent cell count reference ranges are not reported, since discordance with absolute values may lead to misinterpretation of CBC data. Current Interpretive Data was last revised on 2018. Imm gran pct 0.5 % [facility] Comment: Interpretive Data Percent cell count reference ranges are not reported, since discordance with absolute values may lead to misinterpretation of CBC data. Current Interpretive Data was last revised on 2018. Lymphocyte pct 20.7 % [facility] Comment: Interpretive Data Percent cell count reference ranges are not reported, since discordance with absolute values may lead to misinterpretation of CBC data. Current Interpretive Data was last revised on 2018. Monocyte pct 11.8 % [facility] Comment: Interpretive Data Percent cell count reference ranges are not reported, since discordance with absolute values may lead to misinterpretation of CBC data. Current Interpretive Data was last revised on 2018. Eosinophil pct 0.5 % [facility] Comment: Interpretive Data Percent cell count reference ranges are not reported, since discordance with absolute values may lead to misinterpretation of CBC data. Current Interpretive Data was last revised on 2018. Basophil pct 0.4 % [facility] Comment: Interpretive Data Percent cell count reference ranges are not reported, since discordance with absolute values may lead to misinterpretation of CBC data. Current Interpretive Data was last revised on 2018. Blood 09/13/2024 11:3 7 AM CDT 09/13/2024 1:36 PM CDT us James Robles MD LAB BLOOD ORDERABLES Final Resu lt Performing Organization Address [facility] Co de Phone Number [facility] [place] [address] * CPAP aPTT algorithm (09/13/2024 11:37 AM CDT) aPTT 30 28 - 38 sec Comment: Interpretive Data Heparin therapeutic range: 66.0 - 100.0 seconds. Range based on correlation with therapeutic heparin activity range of 0.3 - 0.7 Units/mL. Current interpretive data was last revised on 2023. Blood 09/13/2024 11:3 7 AM CDT 09/13/2024 1:35 PM CDT us Sully Archer NP LAB BLOOD ORDERABLES Cammy l Result Performing Organization Address [facility] de Phone Number [facility] [place] [address] * (ABNORMAL) Urinalysis reflex to microscopic and culture Urine, clean voided (09/13/2024 11:37 AM CDT) Color, ur Straw Yellow Clarity, ur Clear Clear [facility] Specific gravity, ur 1.016 1.003 - 1.030 [facility] pH, urine 5.5 [facility] Comment: Interpretive Data ? Urine pH is affected by diet, medications, systemic acid-base disturbances, and renal tubular function. ??pH may affect urinary stone formation. ??For example, urine pH below 6.0 may help reduce the tendency for calcium phosphate stones and pH greater than 6.0 may reduce the tendency for uric acid stone formation. Source: [employer] Current Interpretive Data was last revised on 2017 Protein, ur ql Trace Negative [facility] Glucose, ur ql Negative Negative [facility] Ketones, ur Negative Negative [facility] Bilirubin, ur Negative Negative [facility] Blood, ur 1+(A) Negative [facility] Urobilinogen, ur <2.0 <2.0 mg/dL [facility] Nitrite, ur Negative Negative [facility] Leukocyte esterase, ur Negative Negative [facility] UA reflex comment Reflex to microscopic UA will be performed. [facility] Urine, clean voided 09/13/2024 11:37 AM CDT 09/13/2024 1:37 PM CDT us James Robles MD LAB MICROBIOLOGY - GENERAL ORDE LATIA Final Result Performing Organization Address City/[facility]/ZIP Co de Phone Number [facility] Department [place] [address] * (ABNORMAL) CBC with auto differential (09/13/2024 11:37 AM CDT) WBC 10.4(H) 3.8 - 9.9 K/cumm Hgb 14.0 13.0 - 17.5 g/dL [facility] Hct 42.7 38.9 - 50.3 % [facility] Plt 254 150 - 400 K/cumm [facility] MPV 10.5 9.1 - 12.3 fL [facility] RBC 4.47 4.30 - 5.80 M/cumm [facility] MCV 95.5 81.3 - 96.4 fL [facility] MCH 31.3 27.1 - 33.3 pg [facility] MCHC 32.8 32.3 - 35.7 g/dL [facility] RDW CV 12.7 11.1 - 14.9 % [facility] RDW SD 44.9 35.7 - 48.1 fL [facility] NRBC abs 0.00 0.00 - 0.01 K/cumm [facility] Blood 09/13/2024 11:3 7 AM CDT 09/13/2024 1:36 PM CDT James Robles MD LAB BLOOD ORDERABLES Final Resu lt [facility] Department [place] [address] * Vitamin D 25 hydroxy (09/13/2024 11:37 AM CDT) Vitamin D 25-OH 30 30 - 80 ng/mL Blood 09/13/2024 11:3 7 AM CDT 09/13/2024 1:34 PM CDT James Robles MD LAB BLOOD ORDERABLES Final Resu lt Performing Organization Address [facility] Co de Phone Number [facility] [place] [address] * (ABNORMAL) Urinalysis, microscopic only (09/13/2024 11:37 AM CDT) WBC, ur 6-10(A) 0 - 5 /HPF RBC, ur 21-50(A) 0 - 2 /HPF [facility] Epithelial cells, squamous, ur 1-5 0 - 5 /HPF [facility] Mucous, ur Present(A) [facility] Culture Reflex Comment Reflex conditions for urine culture (WBC >10) not met. [facility] Urine, clean voided 09/13/2024 11:37 AM CDT 09/13/2024 1:37 PM CDT James Robles MD LAB URINE ORDERABLES Final Resu lt Performing Organization Address City/[facility] Co de Phone Number [facility] [place] [address] * aPTT (09/13/2024 11:37 AM CDT) aPTT [...] ORDERABLES Final Resu lt Performing Organization Address [facility] de Phone Number [facility] Department [place] [address] * Protime-INR (09/13/2024 11:37 AM CDT) Pathologist [facility] PT 11.0 9.7 - 13.0 sec INR 1.02 0.90 - 1.20 [facility] Comment: Interpretive data Oral anticoagulant therapeutic [...] ORDERABLES Final Resu lt Performing Organization Address [facility] de Phone Number [facility] Department [place] [address] * (ABNORMAL) Basic metabolic panel (09/13/2024 11:37 AM CDT) Pathologist [facility] Sodium 144 135 - 145 mmol/L Potassium, pl 3.8 3.3 - 4.9 mmol/L [facility] Chloride 105 97 - 110 mmol/L [facility] CO2 25 22 - 32 mmol/L [facility] Anion gap 14 2 - 15 mmol/L [facility] BUN 16 6 - 25 mg/dL [facility] Creatinine 1.55(H) 0.80 - 1.30 mg/dL [facility] Glucose 67(L) 70 - 199 mg/dL [facility] Comment: Interpretive Data Fasting glucose >/= [...] 2022. Calcium 9.9 8.5 - 10.3 mg/dL [facility] Blood 09/13/2024 11:3 7 AM CDT 09/13/2024 1:34 PM CDT us James Robles MD LAB BLOOD ORDERABLES Final Resu lt REYNALDO [facility] Department [place] [address] from Last 3 Months Insurance MEDICARE [facility] MEDICARE [facility] FEDERAL Advance Directives For more information, please contact: [phone] * Full Code (Latest Code Status on File) Date Activated Date Inactivated Comments 10/02/2024 7:33 PM 10/14/2024 6:47 PM Care Teams Merchandise Planning Manager Relationship Specialty Start Date End Date Sj Benson MD [address] [facility] [place] [address] PCP - General Family Medicine 07/05/24
--- OUTSIDE RECORDS SUMMARY | 2024-11-14 16:23 | XMS_ITS | Encounter Summary ---
Author Organization [facility] Address [address] [place] [address] Phone Care Team Providers Care Chemical Packager Name Role Phone Sj Benson MD Primary Care Provider Encounter Details Date Type Department Care Team (Late st Contact Info) Description 10/09/2024 8:55 AM [facility] Ancillary Procedure [facility] Vascular Lab IP [address] [facility] [address] [place] [address] Social History Tobacco Use Types [...] on file Legal Sex Male 12:23 PM [facility] Gender Identity Not on file Sexual Orientation Not on file documented as of this encounter Plan of Treatment Not on file documented as of this encounter Procedures Procedure Name Priority Date/Time Associated Diagnosis Comments US VEIN DUPLEX LOWER EXTREMITY BILATERAL COMPLETE ED Urgent/IP Urgent 10/09/2024 10:08 AM [facility] documented in this encounter Results * US Vein Duplex Lower Extremity Bilateral Complete (10/09/2024 10:08 AM [facility]) Anatomical Region Laterality Modality Vascular Bilateral Ultrasound 10/09/2024 9:49 AM [facility] Narrative 10/09/2024 11:51 AM [facility] - Department of Vascular Surgery, Vascular Laboratory [address] [place] [address] Lower Extremity Venous Ultrasound Report Patient Name: RYAN DELGADO F : 1950 (74y ) Study Date: 10/09/2024 9:49:45 AM Gender: M Tech: AL Location: [id number] Ref Provider: OSIRIS OLIVEIRA ?Quality: Adequate Order [...] Pain in Leg, Right - FINDINGS: Performing Raise Miner: Niurka Krishna RVT. Right: Duplex scan reveals [...] above. Electronically Signed By: Tyshawn Mullins MD [facility] 2024-10-09 11:50:17 [facility] Procedure Note Tyshawn Mullins MD - 10/09/2024 [facility] - Department of Vascular Surgery,Vascular Laboratory [address] [place] [address] Lower Extremity Venous Ultrasound Report Patient Name: RYAN DELGADO F : 1950 (74y ) Study Date: 10/09/2024 9:49:45 AM Gender: M Tech: AL Location: [id number] Ref Provider: OSIRIS OLIVEIRA Quality: Adequate Order [...] Pain in Leg, Right - FINDINGS: Performing Raise Miner: Niurka Krishna RVT. Right: Duplex scan reveals [...] above. Electronically Signed By: Tyshawn Mullins MD [facility] 2024-10-09 11:50:17 [facility] us Osiris Oliveira CHRONIC SPECIALIST IMG US PROCEDURES Final Result documented in this encounter Visit Diagnoses Not on filedocumented in this encounter Care Teams Chemical Packager Relationship Specialty Start Date End Date Sj Benson MD [address] [facility] [place] [address] PCP - General Family Medicine 07/05/24 documented as of this encounter
--- OUTSIDE RECORDS SUMMARY | 2024-11-14 16:23 | XMS_ITS | Encounter Summary ---
Author Organization [facility] Healthcare Address [address] [place] [address] Care Team Providers Care Parts Sales Associate Name Role Phone Sj Benson MD Primary Care Provider [phone] Reason for Visit * Auth/Cert (Routine) Specialty Diagnoses / Procedures Referred By [place] t Referred To Contact Diagnoses Thoracic myelopathy Thoracic myelopathy [M47.14] Procedures [place] ARTHRODESIS POSTERIOR/PSTLAT TQ 1NTRSPC THORACIC [place] ROMERO EXC ISPI LES OTH/THN LUCIO IDRL THORACIC NY ARTHRODESIS PST/PSTLAT TQ 1NTRSPC EA ADDL NTRSPC NY POSTERIOR SEGMENTAL INSTRUMENTATION 3-6 VRT SEG [place] AUTOGRAFT SPINE SURGERY LOCAL FROM SAME INCISION [place] ALLOGRAFT FOR SPINE SURGERY ONLY MORSELIZED FUSION SPINAL - POSTERIOR LUMBAR/THORACIC WITH INSTRUMENTATION; T3-5 posterior spinal fusion with 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 LAMINECTOMY THORACIC DECOMPRESSION SPINAL CORD MONITORING Referral ID Status Reason Start Date Expiration Date Visits Re quested Visits Authorized [id number] 1 1 Encounter Details Date Type Department Care Team (Latest Contact Info) Description 10/02/2024 5:29 AM DRY PAN CHARGER - 10/14/2024 2:41 PM DRY PAN CHARGER Hospital Encounter [facility] [address] [place] [address] James Robles MD [address] [place] [address] Thoracic myelopathy Discharge Disposition: Discharge to an IP Rehab facility Social History Tobacco Use Types Packs/Day Years [...] on file Legal Sex Male 12:23 PM DRY PAN CHARGER Gender Identity Not on file Sexual Orientation Not on file documented as of this encounter Last Filed Vital Signs Vital Sign Reading Time Taken Comments Blood Pressure 109/63 10/14/2024 12:17 PM DRY PAN CHARGER Pulse 60 10/14/2024 12:17 PM DRY PAN CHARGER Temperature 36.6 ??C (97.9 ??F) 10/14/2024 1 2:17 PM DRY PAN CHARGER Respiratory Rate 16 10/14/2024 12:1 7 PM DRY PAN CHARGER Oxygen Saturation 97% 10/14/2024 12: 17 PM DRY PAN CHARGER Inhaled Oxygen Concentration - - Weight 98.4 kg (216 lb 14.9 oz) 10/12/2024 2:30 PM DRY PAN CHARGER Height 182.9 cm (6') 10/03/2024 2:04 PM DRY PAN CHARGER Body Mass Index 29.42 10/03/2024 2:04 PM DRY PAN CHARGER documented in this encounter Discharge Summaries * Osiris Guillen NP - 10/14/2024 11:16 AM CST Images from the original note were not included. Spine Inpatient Discharge Summary Admitting Provider: James Robles MD Discharge Provider: James Robles MD Primary Care Physician at Discharge: Sj Benson MD [phone] Admission Date: 10/02/2024 Discharge Date: 10/14/2024 Primary Discharge Diagnosis: Thoracic myelopathy Secondary Discharge Diagnosis: Principal Problem: Thoracic myelopathy Resolved Problems: No resolved hospital problems. DETAILS OF HOSPITAL STAY Chief Complaint: Back Pain History of Present Illness: The patient is a 74 y.o. year old male cared for by Dr. James Robles. He has an unremarkable PMH and has been experiencing lower back pain with diffuse radiation pain numbness tingling down the legsand feet bilaterally, he does have a history of prior thoracic laminectomy for decompression many years ago, and additional L4-5 laminectomy and spinal cord stimulator placement in 11/2023. The risks, benefits, alternatives and complications of the procedure listed were discussed with thepatient at length prior to surgery. The patient elected to proceed with a surgical intervention given the significant influence on their quality of life. Informed consent was obtained prior to surgery. Operative Procedures Performed: Procedure(s): POSTERIOR LUMBAR/THORACIC WITH INSTRUMENTATION 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 LAMINECTOMY THORACIC DECOMPRESSION SPINAL CORD MONITORING Hospital Course 10/02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 Lost BLE motors intra-op. POC with LLE weakness and minimal RLE movement. 10/03 NS bolus given in PACU. Admitted to NNICU. MAP goal relaxed to >90. 10/04 MAP goals liberalized to >80. CXR with ill-defined airway opacity in L mid/upper lung and RML c/f aspiration vs PNA. CTX and azithro started for suspected CAP. PT/OT rec rehab. Trending trops and lactate. RVP and UA neg. 10/05 MAPs liberalized to normotension. Dex wean ordered. TTF. 10/06 zheng dc'd 10/07 failed void trial. Zheng replaced. Infectious workup sent. CXR negative. Rpt UA negative. Blood cx sent 10/08 Dressing changed. Slight chest pain without SOB, EKG ok and trop normal 10/09 Chest XR, LLE dopplars positive for RLE acute DVT, cardiology consulted--bradycardia, Hematology consulted re: Acute DVT 10/10 heparin drip started, lovenoxx dc'd, dressing changed, up to chair today, moving better, 10/11 Heparin gtt restarted. No further bleeding. Worked w PT. Cr remains uptrending despite IVFs. Blood cx from 09/27 NGF 10/12 Worked with OT. OOBTC. Zheng removed. Dressing changed. SC x1 for bladder scan >800. Heme recommending repeat LEDs due to low goal heparin gtt. Additional SC x1. Cr improving 10/13 Zheng replaced. Worked with PT/OT. Repeat LED with DVTs in right popliteal vein, posterior tibial veins and peroneal veins. Apixaban 5 mg BID to start in PM. Heparin gtt transition to Eliquis this PM 10/14 Discharged The patient was able to wean away from intravenous narcotics , the patient was able to mobilize with physical and occupational therapy, the patient had post operative images and those images were reviewed by the surgeon, and the patient was felt to be stable for discharge to rehab on 10/14 Problems addressed during this hospitalization: Thoracic Myelopathy --S/p T3-5 lami, arachnoid web fenestration on 10/02, closed with prineo, drains x 1 --Therapy recommends dispo to rehab --Patient to follow-up with Dr. Robles outpatient 2. Acute Pain --Home regimen consisted of Baclofen, Cymbalta, Tramadol --weaned off IV narcotics --pain controlled on PO regimen of Baclofen 10 mg BID, Cymbalta ER 30mg BID, Tylenol 1,000 mg q6h PRN, Oxycodone 5 mg q4h PRN 3. Acute DVT -- Lower extremity dopplers on 10/09/24 for leg pain revealed DVT R. Popliteal vein, no DVT LLE --Hematology consulted --Heparin drip, low therapeutic goal started --Repeat lower extremity doppler on 10/13/24- DVTs in right popliteal vein, posterior tibial veins and peroneal veins --Hep gtt d/c'd and Eliquis 5 mg BID started on 10/13 in PM --Patient to follow up with hematology (Dr. Salmon) outpatient for anticoagulation monitoring 4. Postoperative Urinary Retention --Urinary retention after zheng removed on 10/06/24. Zheng replaced 10/07. --Flomax 0.4 mg started 10/09 --Void trial repeated on 10/12- failed, zheng replaced --Patient will need to see outpatient Urology due to multiple failed void trials-Void trial per rehab facility protocol 5. Leukocytosis --WBC peak of 30.5 on 10/03 --CXR with ill-defined airway opacity in L mid/upper lung and RML c/f aspiration vs PNA. CTX and azithro started for suspected CAP. RVP and UA neg. --Work up repeated 10/07. CXR negative. Rpt UA negative. Blood cx demonstrate no growth --Down trending prior to discharge --Likely due to DVT Consults: Cardiology Hematology Other Procedures: N/A GI/ Concerns: Tolerating regular diet. Last bowel movement was 10/12 Zheng removed on 10/06, reinserted on 10/07 for post-op retention. Zheng removed on 10/12, replacedon 10/13 for retention/overflow incontinence Therapy recommendations: Inpatient rehabilitation Incision: Nylons with prineo overtop Brace: None needed Surgical drains: SHELLY dc'delmar 10/06 Central Line Removed: N/A Blood Transfusions: N/A Notable medications: Pain medications: Baclofen 10 mg BID, Cymbalta ER 30mg BID, Tylenol 1,000 mg q6h PRN, Oxycodone 5 mg q4h PRN 2. Steroids: dexamethasone 6, taper to 0 over 6 days - completed 3. Antibiotics: Ceftriaxone and Azithromycin completed 4. Anticoagulation/antiplatelet agents: Eliqusi 5mg BID Heparin gtt inpatient, switched to Eliquis 5 mg BID on 10/13 PM Test Results Pending at Discharge: Pending Labs Order Current Status Surgical pathology Collected (10/02/24 1215) Hepatic function panel In process Pertinent Diagnostic Results: 10/02 1 view chest radiograph IMPRESSION: Spinal stimulator overlies the midthoracic spine. Ill-defined airspace opacity predominantly in the left mid and upper lung as well as right midlung which may be due to aspiration and/or pneumonia. No pleural effusion or pneumothorax. Cardiomediastinal silhouette is normal accounting for rotation. 10/07 1 view chest radiograph IMPRESSION: The current study is compared with the prior radiograph dated 10/02/2024. Spine stimulator is present. The heart and mediastinal contours are normal. There is no mass or consolidation. There is no lymphadenopathy. There are no pleural effusions. There is no pneumothorax. There is no interval change. 10/09 EKG Simus Bradycardia, with 1st degree A/V block 10/09 1 view chest radiograph IMPRESSION: 1. Interval increase in left lung base atelectasis. 10/09 Bilateral Lower Extremity Dopplars CONCLUSIONS: 1. There is acute deep vein thrombosis involving vein(s) in the right lower extremity. 2. There is no evidence of acute deep vein thrombosis on the left. Noninvasive venous studies cannot rule out isolated calf vein obstruction. 10/13/24 Bilateral Lower Extremity Dopplers: Right: Duplex scan reveals dilated vein with [...] thrombus by duplex, proximal to the calf. Physical Exam at Discharge: Awake, regards, follows commands Oriented x3 CNGI RUE 5/5 in delt/bi/tri/we/hg LUE 5/5 in delt/bi/tri/we/hg RLE 4-/5 in IP, 4/5 q/h, 2/5 TA, 4- gastroc, 3/5 EHL LLE 5/5 in IP/q/h/TA/gastroc Incision dressed, drain x1 Zheng in place Passing gas, tolerating PO intake well Pain controlled on oral agents Discharge Condition: Good Vital Signs Pulse: 57 Resp: 16 BP: 136/66 Temp: 36.3 ??C (97.3 ??F) Weight: 98.4 kg (216 lb 14.9 oz) SpO2: 94 % Follow-up: Spine: Scheduled for f/up with Dr. Robles on 11/29/23 . Primary Care Physician and Hematology Lab tests/imaging necessary on follow-up: standing xrays of the total spine Future Appointments Date Time Provider Department Center 11/29/2024 9:35 AM James Robles MD [id number] 07/16/2025 10:00 AM Jarocho Looney MD [facility] Chem/LFT Lab History Latest Ref Rng & Units 10/10/2024 10/11/2024 21:52 10/12/2024 21:40 10/13/2024 20:12 Labs-Chem/LFT Sodium 135 - 145 mmol/L 140 141 144 140 Creatinine 0.80 - 1.30 mg/dL 1.59 1.68 1.48 1.25 Bilirubin, total 0.1 - 1.2 mg/dL 0.2 AST 10 - 50 Units/L 26 ALT 7 - 55 Units/L 28 Alk phos 40 - 130 Units/L 59 CrCl- Actual Body Weight (Cockcroft-Gault) 58.3 55.2 59.1 70 Details More abnormal values are hidden. Newest values shown. Go to activity for more data. More values are hidden. Newest values shown. Go to activity for more data. Hematology Lab History Latest Ref Rng & Units 10/10/2024 10/11/2024 21:52 10/12/2024 21:40 10/13/2024 20:12 Labs - Hematology WBC 3.8 - 9.9 K/cumm 17.1 15.3 13.9 17.1 Total Hb, POC 13.0 - 17.5 g/dL 11.6 10.9 11.4 12.1 Hct 38.9 - 50.3 % 34.3 33.4 35.0 37.0 Plt 150 - 400 K/cumm 260 234 232 214 Details More abnormal values are hidden. Newest values shown. Go to activity for more data. More values are hidden. Newest values shown. Go to activity for more data. Discharge Medication List: Current Medications TAKE these medications acetaminophen 500 mg capsule Take 2 capsules (1,000 mg total) by mouth every 6 (six) hours as needed for pain apixaban 5 mg tablet Take 1 tablet (5 mg total) by mouth every 12 (twelve) hours For: blood clot formation in vein Commonly known as: ELIQUIS baclofen 10 mg tablet Take 1 tablet (10 mg total) by mouth 2 (two) times a day For: muscle spasms caused by a spinal disease Commonly known as: LIORESAL bisacodyL 10 mg suppository Insert 1 suppository (10 mg total) into the rectum daily as needed for constipation (If no BM 24 hours after miralax) For: constipation Commonly known as: DULCOLAX docusate sodium 100 mg capsule Take 1 capsule (100 mg total) by mouth 2 (two) times a day For: constipation, Stool Softener Commonly known as: COLACE DULoxetine DR 30 mg capsule Take 1 capsule (30 mg total) by mouth 2 (two) times a day For: neuropathic pain Commonly known as: CYMBALTA finasteride 5 mg tablet Take 1 tablet (5 mg total) by mouth every morning For: enlarged prostate with urination problem Commonly known as: PROSCAR Florastor 250 mg capsule Take 1 capsule (250 mg total) by mouth every morning For: gut health Generic drug: Saccharomyces boulardii oxyCODONE 5 mg immediate release tablet Take 1 tablet (5 mg total) by mouth every 4 (four) hours as needed for pain For: pain Commonly known as: ROXICODONE polyethylene glycol 17 gram packet Take 1 packet (17 g total) by mouth daily as needed for constipation (1st line) For: constipation Commonly known as: MIRALAX senna 8.6 mg tablet Take 1 tablet by mouth 2 (two) times a day For: constipation Commonly known as: SENOKOT tamsulosin 0.4 mg extended release capsule Take 1 capsule (0.4 mg total) by mouth nightly For: enlarged prostate with urination problem Commonly known as: FLOMAX Discharge Instructions: Activity Instructions Discharge Activity: Lifting restrictions -Do NOT lift greater than 10 pounds for 6 weeks. -Do NOT lift anything above your head. Discharge activity: Activity restrictions -Do not go back to work until your surgeon says it's OK. -Do not jog, run or bike until your surgeon says it's OK. -Do not do any dental associate that cause you to twist, push or pull; such as laundry, vacuuming grocery shopping and childcare. -Do not flex (bring your head to your chest) or extend (lift your chin up high and away from your chest) unless your surgeon says it's OK. -Slowly work up to your normal activities at home with the exceptions as already noted. Discharge activity: Out of bed to chair -Out of bed to chair at least 3 times every day Diet Instructions Adult Discharge Diet Diet Type: Return to previous diet Other Instructions Call 911 if you have chest pain or shortness of breath Call provider for any of the following: -Temperature greater than 101 degrees F or 38.5 C -You have any drainage from your incision -The skin around your incision is swollen and/or red -The incision starts to separate and open up -Pain medicine, rest or warm packs are not helping your pain -You are having new numbness or weakness -You begin feeling very weak -You are having numbness in your pelvic area -You are not able to control your bladder -You lose control of your bowels -You have constipation for longer than 5 days -You are having a hard time swallowing liquids -You have nausea or vomiting that will not go away -You have any swelling, warm to touch or painful areas in your legs. This needs IMMEDIATE attention. Care Instructions: Incisions -Do not use lotions or creams on your incision -Do not place ice or heat directly on your incision Care Instructions: No tub baths -No tub baths, whirlpools or swimming until your doctor says it's ok. Care Instructions: Surgical Dressing -Keep wound clean and dry at all times. Use a waterproof dressing while showering. Discharge Wound Type: Open to air -You may have your dressing removed on 10/17 and leave your incision open to air Discharge Wound Type: Skin Glue Special glue has been placed on your incision. It will flake off over 1-2 weeks. Do not pick, scratch or rub. This may cause it to come off before your incision has healed. Discharge exercises -Continue the exercises your therapist gave you in the hospital Incentive Spirometry Use your incentive spirometer 10 times every hour while awake for one week. Special Instructions It is important that you maintain normal bowel patterns, especially when taking opiate pain medications. Continue taking stool softeners and laxatives, if needed, while taking opiate pain medications. SEE AVS FOR ADDITIONAL INSTRUCTIONS Cosigned by James Robles MD at 10/14/2024 1:14 PM DRY PAN CHARGER PAN CHARGER PAN CHARGER documented in this encounter Discharge Instructions * Discharge Instructions* Dc Ott NP - 10/09/2024 6:37 AM DRY PAN CHARGER Discharge Instructions Thoracic Laminectomy Your doctor has performed an operation to decompress the spinal cord and nerve roots in your mid-back (thoracic spine). Many times, patients feel remarkably better after recovering from surgery and can ???over-do it.?? Even if you feel well, it is important that you abide by the following activity guidelines. If you do not let your back heal properly from the surgery, you can increase the chance of return of your symptoms. The following are instructions and guidelines meant to help in your recovery once you have been discharged from the hospital. When to call our office Although your recovery will likely be uneventful, you may have some residual aches and pains in your back and/or legs. This is normal and should improve in the next few weeks. Call our office immediately (phone numbers listed at the end of these instructions) if you experience the following symptoms: Fevers greater than 101??F Drainage from your incision, or surrounding redness or swelling Pain that is progressively getting worse, and is not relieved by your pain medications, rest, or applying warms packs New numbness or weakness Difficulty controlling your bladder Loss of control of your bowels Call 911 immediately if you experience the following symptoms: Sudden weakness or difficulty speaking and/or swallowing Sudden onset persistent headache, with nausea and/or vomiting Sudden change or loss of vision New difficulty with breathing Chest pain Wound care Your wound has been closed with nylons and prineo . Keep your incision clean. Do NOT use lotions, ointments, or creams on the incision. Do not scrub, rub, or pick at the incision. If you have a gauze dressing covering your wound, remove it within 1-2 days and leave the wound open to air. You may get your incision wet now. If your wound gets wet, lightly dab it dry. Do NOT submerge yourself in any water that will cover the incision (bathtub, hot tub, swimming pool), unless specifically cleared by your doctor. Activity Until released by your doctor, you should not return to work. You should rest at home and let your body heal. Taking short walks is encouraged, but avoid strenuous exercise. Do not jog, run, bicycle,lift weights, or participate in any other exercises unless specifically allowed by your doctor. Most importantly, avoid lifting objects heavier than a telephone book or carton of milk as this places strain on your back. Avoid twisting and bending motions. Avoid prolonged sitting. Avoid household activities that involve lifting, bending, pushing, and pulling such as laundry, vacuuming, grocery shopping, and childcare. Try to arrange for help from friends and family for these activities while your back heals. Your doctor may have ordered a lumbar brace for you to wear. Depending on your operation, this may help keep your back still and let the bones heal properly. Not all back surgeries require a lumbar brace - your doctor will prescribe one if you need it. If you are asked to wear a brace, you should wear it whenever you are out of bed. You may remove it when lying down or sleeping. You should also wear it when riding in a car. You should not drive until cleared by your doctor. You may shower but try to keep your wound as dry as possible. After showering, lightly dab wound dry. Do not scrub the wound. Do not take baths or sit in a hot tub or pool until approved by your doctor at your follow-up appointment. Do not smoke tobacco Smoking has been proven to interfere with the normal healing of the bones in your neck. Smoking will dramatically reduce the success rate of your surgery. Your primary care doctor can prescribe a patch to help you stop smoking if you would like. Diet You can return to your usual diet, unless instructed otherwise by your doctor. Medications You should resume taking all of your normal medications, unless instructed otherwise by your doctor. However, you should not take anti-inflammatory medications (such as: Motrin, Advil, Ibuprofen, Celebrex, Vioxx, Naprosyn) for three months after surgery, unless specifically approved by your doctor.These medications can prevent your bones from healing properly after surgery. You should also not take any blood thinners or antiplatelet agents (such as Aspirin, Plavix, or Coumadin), unless specifically approved by your doctor. If you have questions about your normal medications (such as those prescribed for high blood pressure), call your family doctor or lubrication equipment servicer. You will be given a prescription for pain medications, a muscle relaxer and possibly a laxative, aspain medications can cause constipation. Take the pain medicines as instructed. If your pain is notreasonably controlled by the medications, contact your doctor???s office. Follow up - Hematology: You will follow up with Dr. Salmon for anticoagulation monitoring/treatment. Indefinite therapeutic anticoagulation is warranted. Heme f/u with Dr Salmon has been requested. If you donot hear regarding an appointment, please call [phone] - Neurosurgery: You should follow up in Dr. Robles's clinic in 4-6 weeks with xrays of your back. If you do not have a follow-up appointment, call to schedule one. Please arrive 30 minutes prior to your scheduled appointment. Phone numbers Appointment Scheduling: Doctor???s Office: Dr. James Robles, After hours emergency: or PAN CHARGER PAN CHARGER PAN CHARGER PAN CHARGER PAN CHARGER * Attachments The following attachments cannot be sent through Care Everywhere. * Deep Vein Thrombosis (AfterCare(R) Instructions(ER/ED)) (Zimbabwean) * Apixaban (By mouth) ([place]an) documented in this encounter Medications at Time of Discharge apixaban (ELIQUIS) 5 mg tabletIndications :Venous Thrombosis Take 1 tablet (5 mg total) by mouth every 12 (twelve) hours 10/14/2024 baclofen (LIORESAL) 10 mg tabletIndications :Muscle Spasticity of Spinal Origin Take 1 tablet (10 mg total) by mouth 2 (two) times a day 04/18/2024 bisacodyL (DULCOLAX) 10 mg suppositoryIndica tions:constipatio n Insert 1 suppository (10 mg total) into the rectum daily as needed for constipation (If no BM 24 hours after miralax) 0 10/14/2024 docusate sodium (COLACE) 100 mg capsuleIndication s:constipation,St ool Softener Take 1 capsule (100 mg total) by mouth 2 (two) times a day 10/14/[address] (CYMBALTA) 30 mg capsuleIndication s:Neuropathic Pain Take 1 capsule (30 mg total) by mouth 2 (two) times a day 04/10/2024 finasteride (PROSCAR) 5 mg tabletIndications :benign prostatic hyperplasia with lower urinary tract sx Take 1 tablet (5 mg total) by mouth every morning 05/23/2024 oxyCODONE (ROXICODONE) 5 mg immediate release tabletIndications :Pain Take 1 tablet (5 mg total) by mouth every 4 (four) hours as needed for pain 42 tablet 10/14/2024 polyethylene glycol (MIRALAX) 17 gram packetIndications :constipation Take 1 packet (17 g total) by mouth daily as needed for constipation (1st line) 10/14/2024 Saccharomyces boulardii (Florastor) 250 mg capsuleIndication s:gut health Take 1 capsule (250 mg total) by mouth every morning senna (SENOKOT) 8.6 mg tabletIndications :constipation Take 1 tablet by mouth 2 (two) times a day 10/14/2024 tamsulosin (FLOMAX) 0.4 mg extended release capsuleIndication s:benign prostatic hyperplasia with lower urinary tract sx Take 1 capsule (0.4 mg total) by mouth nightly 04/10/2024 acetaminophen 500 mg capsule Take 2 capsules (1,000 mg total) by mouth every 6 (six) hours as needed for pain 10/14/2024 4 documented as of this encounter Ordered Prescriptions Prescription Sig Dispense Quantity Refills Last Filled Start Date End Date oxyCODONE (ROXICODONE) 5 mg immediate release tabletIndications :Pain Take 1 tablet (5 mg total) by mouth every 4 (four) hours as needed for pain 42 tablet 10/14/2024 senna (SENOKOT) 8.6 mg tabletIndications :constipation Take 1 tablet by mouth 2 (two) times a day 10/14/2024 polyethylene glycol (MIRALAX) 17 gram packetIndications :constipation Take 1 packet (17 g total) by mouth daily as needed for constipation (1st line) 10/14/2024 docusate sodium (COLACE) 100 mg capsuleIndication s:constipation,St ool Softener Take 1 capsule (100 mg total) by mouth 2 (two) times a day 10/14/2024 bisacodyL (DULCOLAX) 10 mg suppositoryIndica tions:constipatio n Insert 1 suppository (10 mg total) into the rectum daily as needed for constipation (If no BM 24 hours after miralax) 0 10/14/2024 apixaban (ELIQUIS) 5 mg tabletIndications :Venous Thrombosis Take 1 tablet (5 mg total) by mouth every 12 (twelve) hours 10/14/2024 acetaminophen 500 mg capsule Take 2 capsules (1,000 mg total) by mouth every 6 (six) hours as needed for pain 10/14/2024 documented in this encounter Discharge Disposition Disposition Code Departure Means Destination Comment s Discharge to an Rehab facility [facility] documented in this encounter Progress Notes * Marla Larson RN - 10/14/2024 9:42 AM CST 10/13/24 1440 Discharge Summary Discharge Disposition Acute Rehab Specify Facility [facility] Contact Number [phone] Morris Discharge Records Transfer Form Completed;Chart Copied Recommended Discharge Level of Care Acute Rehab Actual Discharge Level of Care Acute Rehab Does Actual Level of Care Match Care Team Recommendation? Yes Post Acute Care Plan Home Care Services N/A OP Services N/A DME N/A Post Acute Care Facility Yes Referral Status Accepted Accepted Post Acute Care Location and Contact [facility] Accepted Post Acute Care Discharge Additional Assistance Does the patient need discharge transport arranged? Yes Type of Transportation Ambulance/EMS Has discharge transport been arranged? Yes Details of Transportation [facility] [phone] trip # [phone] D/C Transport Anticipated Date 10/14/24 D/C Transport Anticipated Time 1300 Per medical team, patient is medically stable for discharge at this time. Patient has been acceptedto [facility]. CM spoke with the patient/family, admissions, medical team, and RN regarding discharge planning, and all are agreeable to discharge. Post-acute care transfer packet completed and will be sent with the patient. RN provided with report number to nurses station. Mode of transport has been discussed with the patient/family, MD, nursing staff. All are agreeable to plan and understand their responsibilities to ensure the safe transfer. Patient/family informed patient may require ambulance transport. promotions firm accounts manager informed patient/family that even if the patient's insurance benefit includes ambulance transport, it may not cover the full cost of the transportation. The patient may be responsible for any [id number] cost, includingmileage beyond the nearest appropriate facility. Patient/family voiced understanding. 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 Lost BLE motors intra-op. POC with LLE weaknessand minimal RLE movement, improving 10/03 NS bolus given in PACU. Admitted to NNICU. MAP goal relaxed to >90. 10/04 MAP goals liberalized to >80. CXR with ill-defined airway opacity in L mid/upper lung and RML c/f aspiration vs PNA. CTX and azithro started for suspected CAP. PT/OT rec rehab. Trending trops and lactate. RVP and UA neg. 10/05 MAPs liberalized to normotension. Dex wean ordered. TTF. 10/07 failed void trial. Zheng replaced. Infectious workup sent. CXR negative. Rpt UA negative. Blood cx sent 10/08 Dressing changed. Slight chest pain without SOB, EKG ok and trop normal 10/09 CXR with inc L lung base atelectasis, EKG sinus beba. Cards c/s and s/o no further cardiac evaluation. Home Flomax ordered. LED w acute RLE popliteal DVT. Heme consulted and rec'd therapeutic AC as able, would not recommend IVCf placement as long as AC can be started within next few days. 10/10 Heparin drip started, lovenox dc'd. Dressing changed. OOBTC. Some slightly bloody secretions.CBC and coags ok. Cr uptrending, NS infusion started 10/11 Heparin gtt restarted. No further bleeding. Worked w PT. Cr remains uptrending despite IVFs. Blood cx from 09/27 NGF 10/12 Worked with OT. OOBTC. Zheng removed. Dressing changed. SC x1 for bladder scan >800. Heme recommending repeat LEDs due to low goal heparin gtt. Additional SC x1. Cr improving 10/13 Zheng replaced. Worked with PT/OT. Repeat LED with DVTs in right popliteal vein, posterior tibial veins and peroneal veins. Apixaban 5 mg BID to start in PM. Heparin gtt transition to Eliquis this PM. Subjective Chest pain still present, stable Objective Physical Exam: Awake, regards, follows commands Oriented x3 CNGI RUE 5/5 in delt/bi/tri/we/hg LUE 5/5 in delt/bi/tri/we/hg RLE 4-/5 in IP, 4/5 q/h, 2/5 TA, 4- gastroc, 3/5 EHL LLE 5/5 in IP/q/h/TA/gastroc Incision dressed, drain x1 Vitals: 24hr min/max vitals: Temp Min: 36.4 ??C (97.5 ??F) Max: 36.8 ??C (98.2 ??F) Pulse Min: 53 Max: 71 Resp Min: 16 Max: 16 SpO2 Min: 97 % Max: 98 % MAP (mmHg) Min: 67 Max: 83 Intake and output: I/O last 2 completed shifts: In: 1000 [I.V.:1000] Out: 2675 [Urine:2675] Medications: Scheduled Scheduled Medications Medication Dose Route Frequency apixaban (ELIQUIS) tablet 5 mg 5 mg oral Q12H FENG baclofen (LIORESAL) tablet 10 mg 10 mg oral BID bisacodyL (DULCOLAX) suppository 10 mg 10 mg rectal Daily docusate sodium (COLACE) capsule 100 mg 100 mg oral BID DULoxetine DR (CYMBALTA) extended release capsule 30 mg 30 mg oral BID famotidine (PEPCID) tablet 20 mg 20 mg oral Q12H FENG finasteride (PROSCAR) tablet 5 mg 5 mg oral QAM polyethylene glycol (MIRALAX) packet 17 g 17 g oral Daily senna (SENOKOT) tablet 1 tablet 1 tablet oral BID tamsulosin (FLOMAX) extended release capsule 0.4 mg 0.4 mg oral Daily with dinner As needed PRN Medications Medication Dose Route Frequency Last Admin acetaminophen (TYLENOL) tablet 1,000 mg 1,000 mg oral Q6H PRN 1,000 mg at 10/13/24 1847 Carrier Fluids for Secondary Infusion - 0.9% Sodium Chloride 30 mL intravenous PRN ondansetron (ZOFRAN) injection 4 mg 4 mg intravenous Q6H PRN oxyCODONE (ROXICODONE) tablet 5 mg 5 mg oral Q4H PRN 5 mg at 10/14/24 0616 sodium chloride 0.9% flush 0.5-20 mL 0.5-20 mL intra-catheter PRN 10 mL at 10/10/242005 Labs: Lab Results Component Value Date SODIUM 140 10/13/2024 SODIUM 144 10/12/2024 SODIUM 141 10/11/2024 Lab Results Component Value Date GLUCOSE 96 10/13/2024 CALCIUM 8.9 10/13/2024 POTASSIUM 4.7 10/13/2024 CO2 23 10/13/2024 CHLORIDE 107 10/13/2024 BUNSER 26 (H) 10/13/2024 CREATININE 1.25 10/13/2024 Lab Results Component Value Date WBC 17.1 (H) 10/13/2024 WBC 13.9 (H) 10/12/2024 WBC 15.3 (H) 10/11/2024 HGB 12.1 (L) 10/13/2024 HGB 11.4 (L) 10/12/2024 HGB 10.9 (L) 10/11/2024 HCT 37.0 (L) 10/13/2024 HCT 35.0 (L) 10/12/2024 HCT 33.4 (L) 10/11/2024 LABPLAT 214 10/13/2024 LABPLAT 232 10/12/2024 LABPLAT 234 10/11/2024 Lab Results Component Value Date INR 1.06 10/13/2024 INR 1.11 10/10/2024 INR 1.05 10/10/2024 PT 11.5 10/13/2024 PT 12.0 10/10/2024 PT 11.3 10/10/2024 APTT 55 (H) 10/13/2024 APTT 57 (H) 10/12/2024 APTT 51 (H) 10/12/2024 No components found for: TROPONIN PT/OT assessment: PT Recommendation/Plan: Inpatient Rehab Facility OT Recommendation: (S) Inpatient Rehab Facility Assessment/Plan Hospital Day: Lili Delgado is a 74 y.o. year old male who underwent T3-5 laminectomy and decompression, arachnoidcyst wall fenestration. Plan [ ] Dressing change 10/15 Heme recs Tmax 36.8, WBC 17.1(13.9), Cr 1.25(1.48) Dispo rehab ([facility] following) Dispo rehab ([facility] following) DVT prophylaxis: lovenox Responsible team (call resident in bold with questions) Kortney Dean Note created by Bladimir Lewis MD on 10/14/2024 at 7:18 AM. Cosigned by James Robles MD at 10/14/2024 1:14 PM DRY PAN CHARGER PAN CHARGER PAN CHARGER * Tiffanie Tirado, PT - 10/13/2024 3:09 PM CST Physical Therapy Progress Note NOTE: This is a summary note of the cuellar components of the treatment session. For full details, review chart for all flowsheets documented on by this physical therapy clinician on this date. Vital signs documented in vital signs flowsheet. Care plan progress documented in Care Plan Activity. For questions, please review the treatment team and contact the PT or ENGLISH TUTOR currently assigned to this patient. If a physical therapy clinician is not assigned to this patient, please call [phone]. 10/13/24 1509 PT Last Visit Session Type Treatment (co-treat wtih OT 2/2 level of assist needed) PT Received On 10/13/24 Safe Environment Arm band checked;Patient found in supine;Session completed bedside;Gait belt not utilized, see comment (2/2 spinal incision) Subjective Agreeable to Therapy Family/Caregiver Present No Precautions Precautions Fall risk;Spinal/Back Precaution Handout Issued No Precaution Comments verbally reviewed precautions prior to mobility, pt demonstrates good understanding Activity Tolerance Activity Tolerance Comments Hina: somewhat hard Pain Assessment Pain Assessment 0-10 Pain Score 4 Pain Location Back (Lumbar) Pain Interventions RN Notified (RN Roslyn notified) Cognition Arousal/Alertness Alert Orientation Oriented X4 (person, place, time, situation) Following Commands Follows all commands and directions without difficulty Safety Judgment Good awareness of safety precautions Static Sitting Balance Static Sitting-Balance Support Bilateral upper extremity supported Static Sitting-Sitting Surface Bed Static Sitting-Level of Assistance Contact guard Static Sitting-Comment/# of Minutes CGA for safety, preventing posterior lean Static Standing Balance Static Standing-Balance Support Bilateral upper extremity supported (on PT/OT or WW) Static Standing-Standing Surface Floor Static Standing-Level of Assistance Maximum assistance Static Standing-Comment/# of Minutes maxA x2 for upright posture, force production, balance Seated Seated-Exercises Lower extremity;Specific exercises Seated-Exercise Type Ankle pumps;Hip flexion;Long arc quads Reps/Sets 08/22 Seated-Motion AROM;AAROM Seated-Exercise Comments AROM L LE, AAROM R LE Bed Mobility 1 Bed Mobility From 1 Supine Bed Mobility Type 1 To Bed Mobility to 1 Edge of bed Level of Assistance 1 Moderate Assist Bed Mobility Comments 1 via log roll to pt's L, mod A for rolling, LE managment and trunk elevation Transfer 1 Transfer From 1 Sit Transfer Type 1 To and from Transfer to 1 Stand Technique 1 Sit to stand;Stand to sit Transfer Device 1 No device;Wheeled walker Transfer Level of Assistance 1 Maximum Assist (maxA x 2) Trials/Comments 1 for balance, force production, upright posture. 2 reps with WW, 1 reps with PERISHABLE FREIGHT INSPECTOR Transfers 2 Transfer From 2 Bed Transfer Type 2 To Transfer to 2 Chair with arms Technique 2 Stand pivot Transfer Device 2 Wheeled walker Transfer Level of Assistance 2 Maximum Assist (maxA x 2) Trials/Comments 2 maxA x 2 for weight shift, force production, balance Other Comments Other PT Comments Pt demonstrating good understanding of safety precautions during mobility. Basic Mobility - 6 Click How much difficulty does the patient have: Turning over in bed 2 How much difficulty does the patient currently have: Sitting down and standing up from a chair witharms? 2 How much difficulty does the patient have: Moving from lying on back to sitting on the side of the bed? 2 How much difficulty does the patient have: Moving to and from a bed to a chair including wheelchair? 2 How much help does the patient currently need: Walk in hospital room? 1 How much help from another person does the patient currently need: Climbing 3-5 steps with a railing? 1 Total 6 Click Score (range 6-24) 10 Score Interpretation 28.13 Safe Environment End of Therapy Session Safe Environment End of Therapy Session Patient left in recliner;Chair alarm in place and activated;RN notified;Call light within reach;Overbed table within reach (MARK Mcgowan notified) Assessment Prognosis Good Problem List Reduced mobility;Decreased strength;Decreased range of motion;Decreased endurance;Pain Plan Plan Continue with current plan;If this is the last note, consider this the discharge summary Recommendation/Plan PT Recommendation/Plan Inpatient Rehab Facility Patient at high risk for Falls;Readmission;Injury due to reduced functional status;Injury due to balance deficits;Injury at home as patient has not returned to prior level of function Recommend Inpatient Rehab/Acute Rehab due to Ability to actively participate in intensive therapy 3hours/day, 5 days/week or 900 minutes per week;Highly motivated to participate in therapy;Not at baseline due to impaired ability to complete ADLs;Impaired ability to complete functional mobility;Requires greater than 25% physical assistance with most mobility tasks;Patient and caregiver require specialized skilled training due to new level of function/diagnosis PT Frequency during current admission 3-5x/wk Treatment/Interventions during current admission Balance Training;Bed mobility;Endurance training;Gait training;Strengthening;Therapeutic activity;Therapeutic exercise;Transfer training PT Equipment Recommended Other (Comment) (will be assessed at next level of care) Progress during current admission Progressing toward goals PT - Next Appointment 10/16/24 PT Time Calculation PT Start Time 1509 PT Stop Time 1522 PT Time Calculation (min) 13 min Multi-Disciplinary Problems (from Physical Therapy) Active Problems Problem: Mobility Start Date: 10/04/24 Goal Start Date Expected End Date End Date LTG - Patient will ambulate household distance with LRD 10/04/24 11/03/24 -- Goal Start Date Expected End Date End Date STG - Patient will ambulate 90 ft with LRD with min A 10/04/24 10/18/24 -- Problem: Transfers Start Date: 10/04/24 Goal Start Date Expected End Date End Date STG - Transfer from bed to chair CGA 10/04/24 10/18/24 -- Goal Start Date Expected End Date End Date STG - Patient to transfer to and from sit to supine CGA 10/04/24 10/18/24 -- Goal Start Date Expected End Date End Date STG - Patient will transfer sit to and from stand CGA 10/04/24 10/18/24 -- Problem: Orthotic Start Date: 10/07/24 Goal Start Date Expected End Date End Date STG - Patient and/or caregiver will perform home exercise program with the following level of assist: 10/07/24 10/14/24 -- Goal Details: supervision PAN CHARGER * Harley Allen, OT - 10/13/2024 2:58 PM CST Occupational Therapy Occupational Therapy Progress Note NOTE: This is a summary note of the cuellar components of the treatment session. For full details, review chart for all flowsheets documented on by this occupational therapy clinician on this date. Vitalsigns documented in vital signs flowsheet. Care plan progress documented in Care Plan Activity. For questions, please review the treatment team and contact the occupational therapist currently assigned to this patient. If an occupational therapist is not assigned to this patient, please call [phone]. 10/13/24 8497 General Session Type Treatment (Co-tx with PT) OT Received On 10/13/24 Safe Environment Arm band checked;Patient found in supine;Gait belt utilized for all out of bed mobility Subjective Agreeable to Therapy Family/Caregiver Present No Precautions Precautions Fall risk;Spinal/Back Precaution Handout Issued No Precaution Comments Verbally reviewed precautions prior to mobility. Pt demonstrated and verbalizedunderstanding. Pain Assessment Pain Assessment 0-10 Pain Score 4 Pain Location Back (Lumbar) Pain Interventions RN Notified (MARK Valdez) Balance Balance Yes Dynamic Sitting Balance Dynamic Sitting-Balance Support No upper extremity supported Dynamic Sitting-Balance Lateral lean;Forward lean;Reaching for objects;Reaching across midline Dynamic Sitting-Sitting Surface Bed Dynamic Sitting-Level of Assistance Minimum assistance;Contact guard Dynamic Sitting-Comments CGA-Min A for balance and safety Dynamic Standing Balance Dynamic Standing-Balance Support Bilateral upper extremity supported (on ww) Dynamic Standing-Balance Lateral lean;Forward lean;Reaching for objects;Reaching across midline Dynamic Standing-Standing Surface Floor Dynamic Standing-Level of Assistance Maximum assistance (x2) Dynamic Standing-Comments Max A x2 for force production and balance ADL ADLS (WDL) X Grooming Grooming: Where assessed Chair Grooming: Level of assistance Moderate Assist Grooming: Assistance with Safety;Balance (Set up for task, Total for balance) Bed Mobility Bed Mobility Yes Bed Mobility 1 Bed Mobility From 1 Supine Bed Mobility Type 1 To Bed Mobility to 1 Edge of bed Level of Assistance 1 Moderate Assist Bed Mobility Comments 1 Mod A for force production Transfers Transfer Yes Transfer 1 Transfer From 1 Sit Transfer Type 1 To and from Transfer to 1 Stand Technique 1 Sit to stand;Stand to sit Transfer Device 1 No device;Wheeled walker Transfer Level of Assistance 1 Maximum Assist (x2) Trials/Comments 1 Max A x2 for force production and balance Toilet Transfers Toilet Transfer From Bed Toilet Transfer Type To Toilet Transfer to Standard toilet (Chair to sim) Toilet Transfer Technique Stand pivot Toilet Transfer: Equipment Wheeled walker Toilet Transfers Maximal assistance Toilet Transfers Comments Max A x2 for force production adn balance Cognition Overall Cognitive Status WFL Arousal/Alertness Alert;Appropriate responses to stimuli Attention Span Appears intact Memory Appears intact Current communication Appears Intact Orientation Oriented X4 (person, place, time, situation) Following Commands Follows all commands and directions without difficulty Safety Judgment Good awareness of safety precautions Awareness of Errors Good awareness of errors made Insight Fully aware of deficits Problem Solving Able to problem solve independently Compliance/Behavior Easy to engage Perseveration Not present Other Comments Comments Pt seen this date for co-treat with PT. Pt would benefit from continued skilled therapy services to improve ADL ind, balance, and safety Daily Activity - 6 Clicks Putting on and taking off regular lower body clothing 2 Bathing 2 Toileting 2 Putting on and taking off upper body clothing 3 Personal Grooming 2 Eating Meals 4 Total Score (range 6-24) 15 Score Interpretation 34.69 Safe Environment End of Therapy Session Safe Environment End of Therapy Session Patient left in chair;RN notified;Chair alarm in place and activated;Call light within reach;Overbed table within reach Assessment Problem List Decreased endurance;Decreased balance;Decreased fine motor control;Decreased IADL independence;Decreased ADL independence;Decreased gross motor control;Decreased functional mobility Barriers to Discharge Current Mobility Status;Current ADL Status Barrier Comments Fall risk Plan Plan Continue with current plan;If this is the last note, consider this the discharge summary Recommendation/Plan OT Recommendation (S) Inpatient Rehab Facility Patient at high risk for Falls;Readmission;Injury due to decreased ability to care for self;Injury due to reduced functional status;Injury due to balance deficits Recommend Inpatient Rehab/Acute Rehab due to Ability to actively participate in intensive therapy 3hours/day, 5 days/week or 900 minutes per week;Highly motivated to participate in therapy;Not at baseline due to impaired ability to complete ADLs;Impaired ability to complete functional mobility OT Frequency during current admission 5-7x/wk Treatment/Interventions during current admission ADL/IADL retraining;Balance Training;Bed mobility;Endurance training;Functional activity;Functional mobility training;Functional transfer training Progress during current admission Progressing toward goals OT - Next Appointment 10/16/24 OT - OK to Discharge No OT Time Calculation OT Start Time 1458 OT Stop Time 1508 OT Time Calculation (min) 10 min Multi-Disciplinary Problems (from Occupational Therapy) Active Problems Problem: OT Misc Start Date: 10/04/24 Goal Start Date Expected End Date End Date OT LTG - Pt will complete Adls with modified independence 10/04/24 10/26/24 -- Problem: Toileting Start Date: 10/04/24 Goal Start Date Expected End Date End Date STG - Patient will complete toileting tasks with mod A 10/04/24 10/26/24 -- PAN CHARGER * Pavel Sheets MD - 10/13/2024 6:36 AM CST Neurosurgery Daily Progress Note 10/13/2024 Hospital Course 10/02 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 Lost BLE motors intra-op. POC with LLE weaknessand minimal RLE movement, improving 10/03 NS bolus given in PACU. Admitted to NNICU. MAP goal relaxed to >90. 10/04 MAP goals liberalized to >80. CXR with ill-defined airway opacity in L mid/upper lung and RML c/f aspiration vs PNA. CTX and azithro started for suspected CAP. PT/OT rec rehab. Trending trops and lactate. RVP and UA neg. 10/05 MAPs liberalized to normotension. Dex wean ordered. TTF. 10/07 failed void trial. Zheng replaced. Infectious workup sent. CXR negative. Rpt UA negative. Blood cx sent 10/08 Dressing changed. Slight chest pain without SOB, EKG ok and trop normal 10/09 CXR with inc L lung base atelectasis, EKG sinus beba. Cards c/s and s/o no further cardiac evaluation. Home Flomax ordered. LED w acute RLE popliteal DVT. Heme consulted and rec'd therapeutic AC as able, would not recommend IVCf placement as long as AC can be started within next few days. 10/10 Heparin drip started, lovenox dc'd. Dressing changed. OOBTC. Some slightly bloody secretions.CBC and coags ok. Cr uptrending, NS infusion started 10/11 Heparin gtt restarted. No further bleeding. Worked w PT. Cr remains uptrending despite IVFs. Blood cx from 09/27 NGF 10/12 Worked with [facility] [place] [facility]. Zheng removed. Dressing changed. SC x1 for bladder scan >800. Heme recommending repeat LEDs due to low goal heparin gtt. Additional SC x1. Cr improving Subjective Chest pain still present, stable Objective Physical Exam: Awake, regards, follows commands Oriented x3 CNGI RUE 5/5 in delt/bi/tri/we/hg LUE 5/5 in delt/bi/tri/we/hg RLE 4-/5 in IP, 4/5 q/h, 2/5 TA, 4- gastroc, 3/5 EHL LLE 5/5 in IP/q/h/TA/gastroc Incision dressed, drain x1 Vitals: 24hr min/max vitals: Temp Min: 36.3 ??C (97.4 ??F) Max: 36.7 ??C (98 ??F) Pulse Min: 53 Max: 72 Resp Min: 16 Max: 16 SpO2 Min: 94 % Max: 100 % MAP (mmHg) Min: 68 Max: 84 Intake and output: I/O last 2 completed shifts: In: 100 [P.O.:100] Out: 4275 [Urine:4275] Medications: Scheduled Scheduled Medications Medication Dose Route Frequency baclofen (LIORESAL) tablet 10 mg 10 mg oral BID bisacodyL (DULCOLAX) suppository 10 mg 10 mg rectal Daily docusate sodium (COLACE) capsule 100 mg 100 mg oral BID DULoxetine DR (CYMBALTA) extended release capsule 30 mg 30 mg oral BID famotidine (PEPCID) tablet 20 mg 20 mg oral Q12H FENG finasteride (PROSCAR) tablet 5 mg 5 mg oral QAM polyethylene glycol (MIRALAX) packet 17 g 17 g oral Daily senna (SENOKOT) tablet 1 tablet 1 tablet oral BID tamsulosin (FLOMAX) extended release capsule 0.4 mg 0.4 mg oral Daily with dinner As needed PRN Medications Medication Dose Route Frequency Last Admin acetaminophen (TYLENOL) tablet 1,000 mg 1,000 mg oral Q6H PRN 1,000 mg at 10/13/24 0103 Carrier Fluids for Secondary Infusion - 0.9% Sodium Chloride 30 mL intravenous PRN ondansetron (ZOFRAN) injection 4 mg 4 mg intravenous Q6H PRN oxyCODONE (ROXICODONE) tablet 5 mg 5 mg oral Q4H PRN 5 mg at 10/13/24 0628 sodium chloride 0.9% flush 0.5-20 mL 0.5-20 mL intra-catheter PRN 10 mL at 10/10/242005 Labs: Lab Results Component Value Date SODIUM 144 10/12/2024 SODIUM 141 10/11/2024 SODIUM 140 10/10/2024 Lab Results Component Value Date GLUCOSE 110 10/12/2024 CALCIUM 8.4 (L) 10/12/2024 POTASSIUM 4.4 10/12/2024 CO2 27 10/12/2024 CHLORIDE 109 10/12/2024 BUNSER 28 (H) 10/12/2024 CREATININE 1.48 (H) 10/12/2024 Lab Results Component Value Date WBC 13.9 (H) 10/12/2024 WBC 15.3 (H) 10/11/2024 WBC 17.1 (H) 10/10/2024 HGB 11.4 (L) 10/12/2024 HGB 10.9 (L) 10/11/2024 HGB 11.6 (L) 10/10/2024 HCT 35.0 (L) 10/12/2024 HCT 33.4 (L) 10/11/2024 HCT 34.3 (L) 10/10/2024 LABPLAT 232 10/12/2024 LABPLAT 234 10/11/2024 LABPLAT 260 10/10/2024 Lab Results Component Value Date INR 1.11 10/10/2024 INR 1.05 10/10/2024 INR 1.14 10/02/2024 PT 12.0 10/10/2024 PT 11.3 10/10/2024 PT 12.4 10/02/2024 APTT 57 (H) 10/12/2024 APTT 51 (H) 10/12/2024 APTT 51 (H) 10/12/2024 No components found for: TROPONIN PT/OT assessment: PT Recommendation/Plan: Inpatient Rehab Facility OT Recommendation: (S) Inpatient Rehab Facility Assessment/Plan Hospital Day: Lili Delgado is a 74 y.o. year old male who underwent T3-5 laminectomy and decompression, arachnoidcyst wall fenestration. Plan - change dressing 10/16 - Void check 0700 - heme recs - repeat LED 10/13 (ordered) - Heparin gtt (goal 46-70) Dispo rehab ([facility]) DVT prophylaxis: lovenox Responsible team (call resident in bold with questions) Kortney Dean Note created by Pavel Sheets MD on 10/13/2024 at 6:36 AM. Cosigned by James Robles MD at 10/13/2024 8:44 AM DRY PAN CHARGER PAN CHARGER PAN CHARGER * Harley Allen, OT - 10/12/2024 10:11 AM CST Occupational Therapy Occupational Therapy Progress Note NOTE: This is a summary note of the cuellar components of the treatment session. For full details, review chart for all flowsheets documented on by this occupational therapy clinician on this date. Vitalsigns documented in vital signs flowsheet. Care plan progress documented in Care Plan Activity. For questions, please review the treatment team and contact the occupational therapist currently assigned to this patient. If an occupational therapist is not assigned to this patient, please call [phone]. 10/12/24 1011 General Session Type Treatment OT Received On 10/12/24 Safe Environment Arm band checked;Patient found in supine;Gait belt utilized for all out of bed mobility Subjective Agreeable to Therapy Family/Caregiver Present No Precautions Precautions Fall risk;Spinal/Back Precaution Handout Issued No Precaution Comments Verbally reviewed precautions prior to mobility. Pt demonstrated and verbalizedunderstanding. Pain Assessment Pain Assessment 0-10 Pain Score 4 Pain Location Back (Lumbar) Pain Orientation Generalized Pain Interventions Repositioned;RN Notified (MARK Cook) Balance Balance Yes Dynamic Sitting Balance Dynamic Sitting-Balance Support No upper extremity supported Dynamic Sitting-Balance Lateral lean;Forward lean;Reaching for objects;Reaching across midline Dynamic Sitting-Sitting Surface Bed Dynamic Sitting-Level of Assistance Minimum assistance;Contact guard Dynamic Sitting-Comments CGA-Min A for balance Dynamic Standing Balance Dynamic Standing-Balance Support Bilateral upper extremity supported (on therapist) Dynamic Standing-Balance Lateral lean;Forward lean;Reaching for objects;Reaching across midline Dynamic Standing-Standing Surface Floor Dynamic Standing-Level of Assistance Maximum assistance (x2) Dynamic Standing-Comments For force production and balance. ADL ADLS (WDL) X Grooming Grooming: Where assessed Chair Grooming: Level of assistance Moderate Assist Grooming: Assistance with Safety;Balance (Set up for task, Total for balance) Toileting Toileting: Where assessed Toilet Toileting: Level of assistance Moderate Assist Toileting: Assistance with Clothing management up;Clothing management down;Posterior (Mod for task) Bed Mobility Bed Mobility Yes Bed Mobility 1 Bed Mobility From 1 Supine Bed Mobility Type 1 To Bed Mobility to 1 Edge of bed Level of Assistance 1 Moderate Assist Bed Mobility Comments 1 Mod A for trunk elevation and BLE management Transfers Transfer Yes Transfer 1 Transfer From 1 Sit Transfer Type 1 To and from Transfer to 1 Stand Technique 1 Sit to stand;Stand to sit Transfer Device 1 No device Transfer Level of Assistance 1 Moderate Assist (x2) Trials/Comments 1 Mod A x2 for force production and balance Toilet Transfers Toilet Transfer From Bed Toilet Transfer Type To Toilet Transfer to (Chair to sim) Toilet Transfer Technique Stand pivot Toilet Transfer: Equipment No device Toilet Transfers Maximal assistance (x2) Toilet Transfers Comments Max A x2 for force production and balance Cognition Arousal/Alertness Alert Attention Span Appears intact Memory Appears intact Current communication Appears Intact Orientation Oriented X4 (person, place, time, situation) Following Commands Follows all commands and directions without difficulty Safety Judgment Good awareness of safety precautions Awareness of Errors Good awareness of errors made Insight Fully aware of deficits Problem Solving Able to problem solve independently Compliance/Behavior Easy to engage Perseveration Not present Other Comments Comments Pt seen this date for treatment session focusing on self care tasks and simulated toilet transfers. Pt would benefit from continued skilled therapy services to improve ADL ind, balance, and safety. Daily Activity - 6 Clicks Putting on and taking off regular lower body clothing 2 Bathing 2 Toileting 2 Putting on and taking off upper body clothing 3 Personal Grooming 2 Eating Meals 4 Total Score (range 6-24) 15 Score Interpretation 34.69 Safe Environment End of Therapy Session Safe Environment End of Therapy Session Patient left in recliner;RN notified;Call light within reach;Overbed table within reach Assessment Problem List Decreased endurance;Decreased balance;Decreased fine motor control;Decreased IADL independence;Decreased ADL independence;Decreased gross motor control;Decreased functional mobility Barriers to Discharge Current Mobility Status;Current ADL Status Barrier Comments Fall risk Plan Plan Continue with current plan;If this is the last note, consider this the discharge summary Recommendation/Plan OT Recommendation (S) Inpatient Rehab Facility Patient at high risk for Readmission;Falls;Injury due to decreased ability to care for self;Injury due to reduced functional status;Injury due to balance deficits Recommend Inpatient Rehab/Acute Rehab due to Highly motivated to participate in therapy;Ability to actively participate in intensive therapy 3 hours/day, 5 days/week or 900 minutes per week;Not at baseline due to impaired ability to complete ADLs;Impaired ability to complete functional mobility;Likely to return to the community at discharge with support system in place OT Frequency during current admission 5-7x/wk Treatment/Interventions during current admission ADL/IADL retraining;Balance Training;Bed mobility;Endurance training;Functional activity;Functional mobility training;Functional transfer training Progress during current admission Progressing toward goals OT - Next Appointment 10/13/24 OT - OK to Discharge No OT Time Calculation OT Start Time 1011 OT Stop Time 1034 OT Time Calculation (min) 23 min Multi-Disciplinary Problems (from Occupational Therapy) Active Problems Problem: OT Misc Start Date: 10/04/24 Goal Start Date Expected End Date End Date OT LTG - Pt will complete Adls with modified independence 10/04/24 10/26/24 -- Problem: Toileting Start Date: 10/04/24 Goal Start Date Expected End Date End Date STG - Patient will complete toileting tasks with mod A 10/04/24 10/26/24 -- PAN CHARGER * Tiffanie Tirado, PT - 10/11/2024 2:40 PM CST Physical Therapy Progress Note NOTE: This is a summary note of the cuellar components of the treatment session. For full details, review chart for all flowsheets documented on by this physical therapy clinician on this date. Vital signs documented in vital signs flowsheet. Care plan progress documented in Care Plan Activity. For questions, please review the treatment team and contact the PT or ENGLISH TUTOR currently assigned to this patient. If a physical therapy clinician is not assigned to this patient, please call [phone]. 10/11/24 1440 PT Last Visit Session Type Treatment PT Received On 10/11/24 Safe Environment Arm band checked;Patient found in supine;Session completed bedside Subjective Agreeable to Therapy Subjective Comment Pt's stating she had been helping pt move his R LE in bed Family/Caregiver Present Yes (Pt's present throughout session) Precautions Precautions Fall risk;Spinal/Back Activity Tolerance Activity Tolerance Comments Hina: somewhat hard Pain Assessment Pain Assessment 0-10 Pain Score 4 Pain Location Back (Lumbar) Pain Interventions RN Notified (MARK Etienne) Cognition Arousal/Alertness Alert Orientation Oriented X4 (person, place, time, situation) Following Commands Follows all commands and directions without difficulty Safety Judgment Good awareness of safety precautions Static Sitting Balance Static Sitting-Balance Support Bilateral upper extremity supported Static Sitting-Sitting Surface Bed Static Sitting-Level of Assistance Contact guard Static Sitting-Comment/# of Minutes for safety Dynamic Sitting Balance Dynamic Sitting-Balance Support No upper extremity supported Dynamic Sitting-Balance Reaching for objects Dynamic Sitting-Sitting Surface Bed Dynamic Sitting-Level of Assistance Minimum assistance Dynamic Sitting-Comments Mireya to prevent posterior LOB Static Standing Balance Static Standing-Balance Support Bilateral upper extremity supported (on PT and PT student) Static Standing-Standing Surface Floor Static Standing-Level of Assistance Maximum assistance Static Standing-Comment/# of Minutes maxA x 2 for balance, force production Supine Supine-Exercise Comments Supine AAROM/PROM for ankle DF, hip/knee flexion, hip abd x 10 R LE. Glutesets and R quad sets x 10 verbal/visual/tacticle cues for proper muscle activation and contraction Bed Mobility 1 Bed Mobility From 1 Supine Bed Mobility Type 1 To Bed Mobility to 1 Edge of bed Level of Assistance 1 Moderate Assist (modA x 2) Bed Mobility Comments 1 via log roll. modA x 2 for LE management and trunk elevation Transfer 1 Transfer From 1 Sit Transfer Type 1 To and from Transfer to 1 Stand Technique 1 Sit to stand;Stand to sit Transfer Device 1 Hand held assist Transfer Level of Assistance 1 Maximum Assist Trials/Comments 1 maxA x2 for balance,force production, B knee blocking. Pt holding onto PT and PT student. 3 reps, unable to stand > 20 seconds Transfers 2 Transfer From 2 Bed Transfer Type 2 To Transfer to 2 Chair with arms Technique 2 Stand pivot Transfer Device 2 Hand held assist Transfer Level of Assistance 2 Maximum Assist (maxA x 2) Trials/Comments 2 maxA x 2 for weight shift, force production, balance Ambulation Ambulation No Other Comments Other PT Comments Pt eager to participate in PT session and motivated to improve. Pt demonstrated openess to education on HEP and LE exercises in bed Basic Mobility - 6 Click How much difficulty does the patient have: Turning over in bed 2 How much difficulty does the patient currently have: Sitting down and standing up from a chair witharms? 2 How much difficulty does the patient have: Moving from lying on back to sitting on the side of the bed? 2 How much difficulty does the patient have: Moving to and from a bed to a chair including wheelchair? 2 How much help does the patient currently need: Walk in hospital room? 1 How much help from another person does the patient currently need: Climbing 3-5 steps with a railing? 1 Total 6 Click Score (range 6-24) 10 Score Interpretation 28.13 Safe Environment End of Therapy Session Safe Environment End of Therapy Session Patient left in recliner;RN notified;Call light within reach;Overbed table within reach (MARK Etienne notified) Assessment Prognosis Good Problem List Reduced mobility;Decreased strength;Decreased range of motion;Decreased endurance;Pain Barriers to Discharge Current Mobility Status Plan Plan Continue with current plan;If this is the last note, consider this the discharge summary Recommendation/Plan PT Recommendation/Plan Inpatient Rehab Facility Patient at high risk for Falls;Readmission;Injury due to reduced functional status;Injury due to balance deficits;Injury at home as patient has not returned to prior level of function Recommend Inpatient Rehab/Acute Rehab due to Ability to actively participate in intensive therapy 3hours/day, 5 days/week or 900 minutes per week;Highly motivated to participate in therapy;Not at baseline due to impaired ability to complete ADLs;Impaired ability to complete functional mobility;Requires greater than 25% physical assistance with most mobility tasks;Patient and caregiver require specialized skilled training due to new level of function/diagnosis PT Frequency during current admission 3-5x/wk Treatment/Interventions during current admission Balance Training;Bed mobility;Endurance training;Gait training;Strengthening;Therapeutic activity;Therapeutic exercise;Transfer training PT Equipment Recommended Other (Comment) (will be assessed at next level of care) Progress during current admission Progressing toward goals PT - Next Appointment 10/12/24 PT Time Calculation PT Start Time 1440 PT Stop Time 1511 PT Time Calculation (min) 31 min Multi-Disciplinary Problems (from Physical Therapy) Active Problems Problem: Mobility Start Date: 10/04/24 Goal Start Date Expected End Date End Date LTG - Patient will ambulate household distance with LRD 10/04/24 11/03/24 -- Goal Start Date Expected End Date End Date STG - Patient will ambulate 90 ft with LRD with min A 10/04/24 10/18/24 -- Problem: Transfers Start Date: 10/04/24 Goal Start Date Expected End Date End Date STG - Transfer from bed to chair CGA 10/04/24 10/18/24 -- Goal Start Date Expected End Date End Date STG - Patient to transfer to and from sit to supine CGA 10/04/24 10/18/24 -- Goal Start Date Expected End Date End Date STG - Patient will transfer sit to and from stand CGA 10/04/24 10/18/24 -- Problem: Orthotic Start Date: 10/07/24 Goal Start Date Expected End Date End Date STG - Patient and/or caregiver will perform home exercise program with the following level of assist: 10/07/24 10/14/24 -- Goal Details: supervision PAN CHARGER * Wild Perez MD - 10/11/2024 6:09 AM CST Neurosurgery Daily Progress Note 10/11/2024 Hospital Course 10/02 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 Lost BLE motors intra-op. POC with LLE weaknessand minimal RLE movement, improving 10/03 NS bolus given in PACU. Admitted to NNICU. MAP goal relaxed to >90. 10/04 MAP goals liberalized to >80. CXR with ill-defined airway opacity in L mid/upper lung and RML c/f aspiration vs PNA. CTX and azithro started for suspected CAP. PT/OT rec rehab. Trending trops and lactate. RVP and UA neg. 10/05 MAPs liberalized to normotension. Dex wean ordered. TTF. 10/07 failed void trial. Zheng replaced. Infectious workup sent. CXR negative. Rpt UA negative. Blood cx sent 10/08 Dressing changed. Slight chest pain without SOB, EKG ok and trop normal 10/09 CXR with inc L lung base atelectasis, EKG sinus beba. Cards c/s and s/o no further cardiac evaluation. Home Flomax ordered. LED w acute RLE popliteal DVT. Heme consulted and rec'd therapeutic AC as able, would not recommend IVCf placement as long as AC can be started within next few days. 10/10 Heparin drip started, lovenox dc'd. Dressing changed. OOBTC. Some slightly bloody secretions.CBC and coags ok. Cr uptrending, NS infusion started Subjective Chest pain still present, stable Objective Physical Exam: Awake, regards, follows commands Oriented x3 CNGI RUE 5/5 in delt/bi/tri/we/hg LUE 5/5 in delt/bi/tri/we/hg RLE 4-/5 in IP, 4/5 q/h, 2/5 TA, 4- gastroc, 3/5 EHL LLE 5/5 in IP/q/h/TA/gastroc Incision dressed, drain x1 Vitals: 24hr min/max vitals: Temp Min: 36.1 ??C (97 ??F) Max: 36.5 ??C (97.7 ??F) Pulse Min: 50 Max: 64 Resp Min: 14 Max: 18 SpO2 Min: 94 % Max: 100 % MAP (mmHg) Min: 65 Max: 89 Intake and output: I/O last 2 completed shifts: In: 200 [P.O.:200] Out: 3325 [Urine:3325] Medications: Scheduled Scheduled Medications Medication Dose Route Frequency baclofen (LIORESAL) tablet 10 mg 10 mg oral BID docusate sodium (COLACE) capsule 100 mg 100 mg oral BID DULoxetine DR (CYMBALTA) extended release capsule 30 mg 30 mg oral BID famotidine (PEPCID) tablet 20 mg 20 mg oral Q12H FENG finasteride (PROSCAR) tablet 5 mg 5 mg oral QAM polyethylene glycol (MIRALAX) packet 17 g 17 g oral Daily senna (SENOKOT) tablet 1 tablet 1 tablet oral BID tamsulosin (FLOMAX) extended release capsule 0.4 mg 0.4 mg oral Daily with dinner As needed PRN Medications Medication Dose Route Frequency Last Admin acetaminophen (TYLENOL) tablet 1,000 mg 1,000 mg oral Q6H PRN 1,000 mg at 10/11/24 1539 bisacodyL (DULCOLAX) suppository 10 mg 10 mg rectal Daily PRN 10 mg at 10/05/24 2337 Carrier Fluids for Secondary Infusion - 0.9% Sodium Chloride 30 mL intravenous PRN ondansetron (ZOFRAN) injection 4 mg 4 mg intravenous Q6H PRN oxyCODONE (ROXICODONE) tablet 5 mg 5 mg oral Q4H PRN 5 mg at 10/11/24 1540 sodium chloride 0.9% flush 0.5-20 mL 0.5-20 mL intra-catheter PRN 10 mL at 10/10/242005 Labs: Lab Results Component Value Date SODIUM 140 10/10/2024 SODIUM 141 10/10/2024 SODIUM 141 10/08/2024 Lab Results Component Value Date GLUCOSE 108 10/10/2024 CALCIUM 8.4 (L) 10/10/2024 POTASSIUM 4.6 10/10/2024 CO2 24 10/10/2024 CHLORIDE 105 10/10/2024 BUNSER 32 (H) 10/10/2024 CREATININE 1.59 (H) 10/10/2024 Lab Results Component Value Date WBC 17.1 (H) 10/10/2024 WBC 21.0 (H) 10/10/2024 WBC 18.6 (H) 10/10/2024 HGB 11.6 (L) 10/10/2024 HGB 12.0 (L) 10/10/2024 HGB 11.7 (L) 10/10/2024 HCT 34.3 (L) 10/10/2024 HCT 36.7 (L) 10/10/2024 HCT 35.3 (L) 10/10/2024 LABPLAT 260 10/10/2024 LABPLAT 272 10/10/2024 LABPLAT 234 10/10/2024 Lab Results Component Value Date INR 1.11 10/10/2024 INR 1.05 10/10/2024 INR 1.14 10/02/2024 PT 12.0 10/10/2024 PT 11.3 10/10/2024 PT 12.4 10/02/2024 APTT 33 10/11/2024 APTT 22 (L) 10/10/2024 APTT 22 (L) 10/10/2024 No components found for: TROPONIN PT/OT assessment: PT Recommendation/Plan: Inpatient Rehab Facility OT Recommendation: (S) Inpatient Rehab Facility Assessment/Plan Hospital Day: Lili Delgado is a 74 y.o. year old male who underwent T3-5 laminectomy and decompression, arachnoidcyst wall fenestration. Plan - change dressing 10/12 - fu 10/07 blood cx (ngtd) - heme recs - repeat LED 10/12 vs 10/13 (not ordered) Heparin gtt (goal 46-70) restarted Dispo rehab ([facility] referral sent 10/06) DVT prophylaxis: lovenox Responsible team (call resident in bold with questions) Chris Dean Note created by Wild Perez MD on 10/11/2024 at 6:08 PM. Cosigned by James Robles MD at 10/11/2024 7:37 PM DRY PAN CHARGER PAN CHARGER PAN CHARGER * Nohemi Zuleta, OT - 10/10/2024 1:16 PM CST Occupational Therapy Occupational Therapy Progress Note NOTE: This is a summary note of the cuellar components of the treatment session. For full details, review chart for all flowsheets documented on by this occupational therapy clinician on this date. Vitalsigns documented in vital signs flowsheet. Care plan progress documented in Care Plan Activity. For questions, please review the treatment team and contact the occupational therapist currently assigned to this patient. If an occupational therapist is not assigned to this patient, please call [phone]. 10/10/24 7369 General Session Type Treatment OT Received On 10/10/24 Safe Environment Arm band checked;Patient found in supine;Gait belt utilized for all out of bed mobility Subjective Agreeable to Therapy Family/Caregiver Present No Precautions Precautions Fall risk;Spinal/Back Precaution Comments Verbally reviewed precautions, pt verbalized understanding. Pain Assessment Pain Assessment 0-10 Pain Score 4 Pain Location Back (Lumbar) Pain Orientation Generalized Pain Interventions RN Notified Balance Balance Yes Static Sitting Balance Static Sitting-Balance Support Bilateral upper extremity supported;Feet supported Static Sitting-Sitting Surface Bed Static Sitting-Level of Assistance Contact guard Static Sitting-Comment/# of Minutes For safety Static Standing Balance Static Standing-Balance Support Bilateral upper extremity supported (on WW) Static Standing-Standing Surface Floor Static Standing-Level of Assistance Maximum assistance Static Standing-Comment/# of Minutes For safety ADL ADLS (WDL) X Grooming Grooming: Where assessed Chair Grooming: Level of assistance Moderate Assist (Ser up for task. Total A for balance.) Grooming: Assistance with Increased time to complete Toileting Toileting: Where assessed Supine, bed Toileting: Equipment utilized Bedpan Toileting: Level of assistance Maximum Assist (Max A for task.) Toileting: Assistance with Clothing management up;Clothing management down;Anterior;Posterior;Increased time to complete;Use of bedpan/urinal setup Bed Mobility Bed Mobility Yes Bed Mobility 1 Bed Mobility From 1 Supine Bed Mobility Type 1 To Bed Mobility to 1 Edge of bed Level of Assistance 1 Moderate Assist Bed Mobility Comments 1 For lowering B LE, elevating trunk, and moving hips forward. Transfers Transfer Yes Transfer 1 Transfer From 1 Bed;Sit Transfer Type 1 To and from Transfer to 1 Stand Technique 1 Sit to stand;Stand to sit Transfer Device 1 No device;Wheeled walker Transfer Level of Assistance 1 Maximum Assist Trials/Comments 1 For safety, balance, force production, cues for technique, and controlled descent. Toilet Transfers Toilet Transfer From Bed Toilet Transfer Type To Toilet Transfer to (simulated BSC w/ chair w/ arms) Toilet Transfer Technique Stand pivot Toilet Transfer: Equipment No device Toilet Transfers Moderate assistance (x2) Toilet Transfers Comments For safety, balance, force production, cues for technique, and controlleddescent. Cognition Arousal/Alertness Alert;Appropriate responses to stimuli Attention Span Appears intact;Age appropriate Current communication Appears Intact Orientation Oriented X4 (person, place, time, situation) Following Commands Follows all commands and directions without difficulty Safety Judgment Good awareness of safety precautions Awareness of Errors Good awareness of errors made Insight Fully aware of deficits Problem Solving Able to problem solve independently Compliance/Behavior Easy to engage Perseveration Not present Other Comments Comments OTR provided education on continued POC and continued d/c recommendations, pt verbalized understanding. Daily Activity - 6 Clicks Putting on and taking off regular lower body clothing 2 Bathing 2 Toileting 2 Putting on and taking off upper body clothing 3 Personal Grooming 2 Eating Meals 4 Total Score (range 6-24) 15 Score Interpretation 34.69 Safe Environment End of Therapy Session Safe Environment End of Therapy Session Patient left in recliner;RN notified;Call light within reach;Overbed table within reach Assessment Problem List Decreased endurance;Decreased balance;Decreased functional mobility;Decreased ADL independence;Decreased IADL independence Barriers to Discharge Current Mobility Status Barrier Comments Fall risk Plan Plan Continue with current plan;If this is the last note, consider this the discharge summary Recommendation/Plan OT Recommendation (S) Inpatient Rehab Facility Patient at high risk for Falls;Readmission;Injury due to decreased ability to care for self;Injury due to reduced functional status;Injury due to balance deficits;Injury at home as patient has not returned to prior level of function Recommend Inpatient Rehab/Acute Rehab due to Ability to actively participate in intensive therapy 3hours/day, 5 days/week or 900 minutes per week;Not at baseline due to impaired ability to complete ADLs;Impaired ability to complete functional mobility;Requires greater than 25% physical assistance with most mobility tasks;Requires greater than 25% physical assistance with most ADL tasks;Requires multiple therapy disciplines to address functional deficits OT Frequency during current admission 5-7x/wk Treatment/Interventions during current admission ADL/IADL retraining;Balance Training;Bed mobility;Compensatory technique education;Endurance training;Functional activity;Functional mobility training;Functional transfer training;Positioning;Strengthening;Therapeutic activity;Therapeutic exercise;Tra nsfer training Progress during current admission Progressing toward goals OT - Next Appointment 10/11/24 Multi-Disciplinary Problems (from Occupational Therapy) Active Problems Problem: Grooming Start Date: 10/04/24 Goal Start Date Expected End Date End Date STG - Patient will complete grooming with mod A 10/04/24 10/11/24 -- Problem: OT Misc Start Date: 10/04/24 Goal Start Date Expected End Date End Date OT LTG - Pt will complete Adls with modified independence 10/04/24 12/01/24 -- Problem: Toileting Start Date: 10/04/24 Goal Start Date Expected End Date End Date STG - Patient will complete toileting tasks with mod A 10/04/24 10/11/24 -- PAN CHARGER * Wild Perez MD - 10/10/2024 8:01 AM CST Neurosurgery Daily Progress Note 10/10/2024 Hospital Course 10/02 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 Lost BLE motors intra-op. POC with LLE weaknessand minimal RLE movement, improving 10/03 NS bolus given in PACU. Admitted to NNICU. MAP goal relaxed to >90. 10/04 MAP goals liberalized to >80. CXR with ill-defined airway opacity in L mid/upper lung and RML c/f aspiration vs PNA. CTX and azithro started for suspected CAP. PT/OT rec rehab. Trending trops and lactate. RVP and UA neg. 10/05 MAPs liberalized to normotension. Dex wean ordered. TTF. 10/07 failed void trial. Zheng replaced. Infectious workup sent. CXR negative. Rpt UA negative. Blood cx sent 10/08 Dressing changed. Slight chest pain without SOB, EKG ok and trop normal 10/09 CXR with inc L lung base atelectasis, EKG sinus beba. Cards c/s and s/o no further cardiac evaluation. Home Flomax ordered. LED w acute RLE popliteal DVT. Heme consulted and rec'd therapeutic AC as able, would not recommend IVCf placement as long as AC can be started within next few days. Subjective Chest pain still present, stable Objective Physical Exam: Awake, regards, follows commands Oriented x3 CNGI RUE 5/5 in delt/bi/tri/we/hg LUE 5/5 in delt/bi/tri/we/hg RLE 4-/5 in IP, 4/5 q/h, 2/5 TA, 4- gastroc, 2/5 EHL LLE 5/5 in IP/q/h/TA/gastroc Incision dressed, drain x1 Vitals: 24hr min/max vitals: Temp Min: 36.3 ??C (97.3 ??F) Max: 36.9 ??C (98.5 ??F) Pulse Min: 51 Max: 57 Resp Min: 14 Max: 16 SpO2 Min: 96 % Max: 99 % MAP (mmHg) Min: 62 Max: 89 Intake and output: I/O last 2 completed shifts: In: 200 [P.O.:200] Out: 3275 [Urine:3275] Medications: Scheduled Scheduled Medications Medication Dose Route Frequency baclofen (LIORESAL) tablet 10 mg 10 mg oral BID dexAMETHasone (DECADRON) tablet 1 mg 1 mg oral Q12H FENG Followed by [START ON 10/11/2024] dexAMETHasone (DECADRON) tablet 1 mg 1 mg oral Daily docusate sodium (COLACE) capsule 100 mg 100 mg oral BID DULoxetine DR (CYMBALTA) extended release capsule 30 mg 30 mg oral BID enoxaparin (LOVENOX) syringe 30 mg 30 mg subcutaneous Daily-2100 famotidine (PEPCID) tablet 20 mg 20 mg oral Q12H FENG finasteride (PROSCAR) tablet 5 mg 5 mg oral QAM polyethylene glycol (MIRALAX) packet 17 g 17 g oral Daily senna (SENOKOT) tablet 1 tablet 1 tablet oral BID tamsulosin (FLOMAX) extended release capsule 0.4 mg 0.4 mg oral Daily with dinner As needed PRN Medications Medication Dose Route Frequency Last Admin acetaminophen (TYLENOL) tablet 1,000 mg 1,000 mg oral Q6H PRN 1,000 mg at 10/09/24 0915 bisacodyL (DULCOLAX) suppository 10 mg 10 mg rectal Daily PRN 10 mg at 10/05/24 2337 Carrier Fluids for Secondary Infusion - 0.9% Sodium Chloride 30 mL intravenous PRN ondansetron (ZOFRAN) injection 4 mg 4 mg intravenous Q6H PRN oxyCODONE (ROXICODONE) tablet 5 mg 5 mg oral Q4H PRN 5 mg at 10/09/242021 sodium chloride 0.9% flush 0.5-20 mL 0.5-20 mL intra-catheter PRN Labs: Lab Results Component Value Date SODIUM 141 10/10/2024 SODIUM 141 10/08/2024 SODIUM 142 10/07/2024 Lab Results Component Value Date GLUCOSE 95 10/10/2024 CALCIUM 8.5 10/10/2024 POTASSIUM 4.2 10/10/2024 CO2 27 10/10/2024 CHLORIDE 106 10/10/2024 BUNSER 34 (H) 10/10/2024 CREATININE 1.38 (H) 10/10/2024 Lab Results Component Value Date WBC 18.6 (H) 10/10/2024 WBC 19.8 (H) 10/08/2024 WBC 17.2 (H) 10/07/2024 HGB 11.7 (L) 10/10/2024 HGB 11.2 (L) 10/08/2024 HGB 11.4 (L) 10/07/2024 HCT 35.3 (L) 10/10/2024 HCT 32.9 (L) 10/08/2024 HCT 32.7 (L) 10/07/2024 LABPLAT 234 10/10/2024 LABPLAT 264 10/08/2024 LABPLAT 264 10/07/2024 Lab Results Component Value Date INR 1.14 10/02/2024 INR 1.02 09/13/2024 PT 12.4 10/02/2024 PT 11.0 09/13/2024 APTT 27 (L) 10/02/2024 APTT 30 09/13/2024 APTT 30 09/13/2024 No components found for: TROPONIN PT/OT assessment: PT Recommendation/Plan: (S) Inpatient Rehab Facility OT Recommendation: Inpatient Rehab Facility Assessment/Plan Hospital Day: 9 Lili Delgado is a 74 y.o. year old male who underwent T3-5 laminectomy and decompression, arachnoidcyst wall fenestration. Plan - change dressing 10/10 - okay for therapeutic AC 2wk postop. If okay to wait this long per heme, will hold off on IVCf. Ifnot, plan for IVCf today. Dispo rehab ([facility] referral sent 10/06) Dispo rehab (needs referrals) DVT prophylaxis: lovenox Responsible team (call resident in bold with questions) Chris Dean Note created by Wild Perez MD on 10/10/2024 at 8:01 AM. Cosigned by James Robles MD at 10/10/2024 9:20 AM DRY PAN CHARGER PAN CHARGER PAN CHARGER * Keyla Connolly, CAITLIN - 10/09/2024 5:06 PM CST Nutrition Screen Note Pt. Screened for nutritional assessment secondary to LOS. Pt with a history of BPH, CKD 3, obesity,lower back pain s/p prior thoracic and lumbar laminectomy with spinal cord stimulator placement 11/2023 who presented for 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 on 10/02/2024. Past Medical History: Diagnosis Date Back pain BPH (benign prostatic hyperplasia) CKD (chronic kidney disease) stage 3, GFR 30-59 ml/min (HCC) Obesity Renal cyst Past Surgical History: Procedure Laterality Date LUMBAR SPINE SURGERY 2020 L4/L5 SPINAL CORD STIMULATOR IMPLANT 2023 SPINE SURGERY 2010 TUMOR REMOVAL 2020 bladder tumor excision Anthropometrics Weight: 104.3 kg (229 lb 15 oz) Admission Weight : 98.9 kg Weight Change: 5.41 kg (11.94 lbs) IBW/kg (Calculated) : 80.7 kg Height: 182.9 cm (6') Weight in (lb) to have BMI = 25: 183.9 BMI (Calculated): 31.2 Adult Malnutrition Scoring Tool (MST) What diet do you follow at home?: regular Have You Recently Lost Weight Without Trying?: No Have you been eating poorly because of a decreased appetite?: No Malnutrition Screening Tool (MST) Score: 0 Dietary Orders (From admission, onward) Start Ordered 10/02/241933 Adult Diet Regular Diet effective now Question: (BJ) Diet type Answer: Regular 10/02/241932 Assessment / Impression: Pt reports eating well consuming 100% of meals, no N/V. Weight stable around 218#, no nutrition issues or concerns at this time. Pt with BM today. RD following. Keyla Connolly MS RD LD #[phone] PAN CHARGER * Rae Soni - 10/09/2024 11:08 AM CST Physical Therapy Physical Therapy Progress Note NOTE: This is a summary note of the cuellar components of the treatment session. For full details, review chart for all flowsheets documented on by this physical therapy clinician on this date. Vital signs documented in vital signs flowsheet. Care plan progress documented in Care Plan Activity. For questions, please review the treatment team and contact the PT or ENGLISH TUTOR currently assigned to this patient. If a physical therapy clinician is not assigned to this patient, please call [phone]. 10/09/24 1108 PT Last Visit Session Type Treatment PT Received On 10/09/24 Safe Environment Arm band checked;Patient found in supine;Gait belt utilized for all out of bed mobility Subjective Agreeable to Therapy Family/Caregiver Present No Precautions Precautions Fall risk;Spinal/Back Precaution Comments Verbally reviewed safety precautions prior to mobility. Activity Tolerance Activity Tolerance Comments HINA: hard Pain Assessment Pain Assessment 0-10 Pain Score 4 Pain Location Back (Lumbar) Pain Interventions RN Notified (MARK Galarza Notified) Cognition Arousal/Alertness Alert Orientation Oriented X4 (person, place, time, situation) Following Commands Follows all commands and directions without difficulty Compliance/Behavior Easy to engage Static Sitting Balance Static Sitting-Balance Support Bilateral upper extremity supported;Feet supported Static Sitting-Sitting Surface Bed Static Sitting-Level of Assistance Minimum assistance Static Sitting-Comment/# of Minutes Mireya for balance. Unable to maintain balance without UE supportwith significant posterior sway. Static Standing Balance Static Standing-Balance Support Bilateral upper extremity supported (WW) Static Standing-Standing Surface Floor Static Standing-Level of Assistance Moderate assistance Static Standing-Comment/# of Minutes Mod A for balance. Pt leans R posterolaterally. Seated Seated-Exercises Lower extremity;Specific exercises Seated-Exercise Type Ankle pumps;Long arc quads Reps/Sets 10/1 ankle pumps, 5 LAQ Seated-Motion AROM;AAROM Seated-Exercise Comments Pt unable to initiate R LE for LAQ but able to complete partial ROM with Mireya. Bed Mobility Bed Mobility Yes Bed Mobility 1 Bed Mobility From 1 Supine Bed Mobility Type 1 To and from Bed Mobility to 1 Side lying-left Level of Assistance 1 Moderate Assist Bed Mobility Comments 1 ModA for force production. Bed Mobility 2 Bed Mobility From 2 Supine Bed Mobility Type 2 To Bed Mobility to 2 Edge of Bed Level of Assistance 2 Moderate Assist Bed Mobility Comments 2 ModA for LE EOB and trunk elevation. Transfers Transfer Yes Transfer 1 Transfer From 1 Bed Transfer Type 1 To Transfer to 1 Chair with arms Technique 1 Lateral;To left Transfer Device 1 No device Transfer Level of Assistance 1 Moderate Assist Trials/Comments 1 ModA for force production and moving hips laterally. Transfers 2 Transfer From 2 Sit Transfer Type 2 To and from Transfer to 2 Stand Technique 2 Sit to stand;Stand to sit Transfer Device 2 Wheeled walker Transfer Level of Assistance 2 Moderate Assist;Minimal verbal cues (Of 2) Trials/Comments 2 5 reps: Pt able to use B UE for force production. ModA of 2 for force production and balance. VCs for upright posture and for weight shift. Ambulation Ambulation No Stairs Stairs No Other Comments Other PT Comments Pt is motivated and wanting to work with PT today to attempt tranfer to chair. Ptwas able to tolerate increased activity, performing bed mobility, transfer, and sit to stands. Pt assistance level decreased from Max of 2 to Mod of 2 for standing. Pt able to tolerate prolonged standing for perianal care. Pt was educated on the benefits of performing LE and core exercises while inchair. Pt verbalized comprehension of information. Basic Mobility - 6 Click How much difficulty does the patient have: Turning over in bed 2 How much difficulty does the patient currently have: Sitting down and standing up from a chair witharms? 2 How much difficulty does the patient have: Moving from lying on back to sitting on the side of the bed? 2 How much difficulty does the patient have: Moving to and from a bed to a chair including wheelchair? 2 How much help does the patient currently need: Walk in hospital room? 2 How much help from another person does the patient currently need: Climbing 3-5 steps with a railing? 1 Total 6 Click Score (range 6-24) 11 Score Interpretation 30.25 Safe Environment End of Therapy Session Safe Environment End of Therapy Session Patient left in chair;Chair alarm in place and activated;RNnotified;Call light within reach;Overbed table within reach Assessment Prognosis Good Problem List Reduced mobility;Decreased strength;Decreased range of motion;Decreased endurance;Pain Barriers to Discharge Current Mobility Status Plan Plan Continue with current plan Recommendation/Plan PT Recommendation/Plan (S) Inpatient Rehab Facility Recommend Inpatient Rehab/Acute Rehab due to Ability to actively participate in intensive therapy 3hours/day, 5 days/week or 900 minutes per week;Highly motivated to participate in therapy;Not at baseline due to impaired ability to complete ADLs;Impaired ability to complete functional mobility;Requires greater than 25% physical assistance with most mobility tasks;Patient and caregiver require specialized skilled training due to new level of function/diagnosis PT Recommendation/Plan Comments Pt agreeable to PT POC. PT Frequency during current admission 3-5x/wk Treatment/Interventions during current admission Balance Training;Bed mobility;Endurance training;Gait training;Strengthening;Therapeutic activity;Therapeutic exercise;Transfer training PT Equipment Recommended Wheeled walker Progress during current admission Progressing toward goals PT - Next Appointment 10/10/24 PT - OK to Discharge No PT Time Calculation PT Start Time 1108 PT Stop Time 1158 PT Time Calculation (min) 50 min PT Time Reason for interruption Retrieving handout for exercises. PT Start Time 2 1307 PT Stop Time 2 1312 PT Time Calculation 2 (min) 5 min PT Total Time Calculation (min) 55 min Multi-Disciplinary Problems (from Physical Therapy) Active Problems Problem: Mobility Start Date: 10/04/24 Goal Start Date Expected End Date End Date LTG - Patient will ambulate household distance with LRD 10/04/24 11/03/24 -- Goal Start Date Expected End Date End Date STG - Patient will ambulate 90 ft with LRD with min A 10/04/24 10/18/24 -- Problem: Transfers Start Date: 10/04/24 Goal Start Date Expected End Date End Date STG - Transfer from bed to chair CGA 10/04/24 10/18/24 -- Goal Start Date Expected End Date End Date STG - Patient to transfer to and from sit to supine CGA 10/04/24 10/18/24 -- Goal Start Date Expected End Date End Date STG - Patient will transfer sit to and from stand CGA 10/04/24 10/18/24 -- Problem: Orthotic Start Date: 10/07/24 Goal Start Date Expected End Date End Date STG - Patient and/or caregiver will perform home exercise program with the following level of assist: 10/07/24 10/14/24 -- Goal Details: supervision Cosigned by Mike Estrada, PT at 10/09/2024 1:58 PM DRY PAN CHARGER PAN CHARGER PAN CHARGER * Wild Perez MD - 10/09/2024 7:40 AM CST Neurosurgery Daily Progress Note 10/09/2024 Hospital Course 10/02 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 Lost BLE motors intra-op. POC with LLE weaknessand minimal RLE movement, improving 10/03 NS bolus given in PACU. Admitted to NNICU. MAP goal relaxed to >90. 10/04 MAP goals liberalized to >80. CXR with ill-defined airway opacity in L mid/upper lung and RML c/f aspiration vs PNA. CTX and azithro started for suspected CAP. PT/OT rec rehab. Trending trops and lactate. RVP and UA neg. 10/05 MAPs liberalized to normotension. Dex wean ordered. TTF. 10/07 failed void trial. Zheng replaced. Infectious workup sent. CXR negative. Rpt UA negative. Blood cx sent 10/08 Dressing changed. Slight chest pain without SOB, EKG ok and trop normal Subjective Chest pain still present, stable Objective Physical Exam: Awake, regards, follows commands Oriented x3 CNGI RUE 5/5 in delt/bi/tri/we/hg LUE 5/5 in delt/bi/tri/we/hg RLE 4-/5 in IP, 4/5 q/h, 2/5 TA, 4- gastroc, 2/5 EHL LLE 4+/5 in IP/q/h/TA/gastroc Incision dressed, drain x1 Vitals: 24hr min/max vitals: Temp Min: 36.3 ??C (97.3 ??F) Max: 36.8 ??C (98.3 ??F) Pulse Min: 50 Max: 57 Resp Min: 15 Max: 16 SpO2 Min: 96 % Max: 99 % MAP (mmHg) Min: 73 Max: 107 Intake and output: I/O last 2 completed shifts: In: - Out: 4550 [Urine:4550] Medications: Scheduled Scheduled Medications Medication Dose Route Frequency baclofen (LIORESAL) tablet 10 mg 10 mg oral BID dexAMETHasone (DECADRON) tablet 1 mg 1 mg oral Q12H FENG Followed by [START ON 10/11/2024] dexAMETHasone (DECADRON) tablet 1 mg 1 mg oral Daily docusate sodium (COLACE) capsule 100 mg 100 mg oral BID DULoxetine DR (CYMBALTA) extended release capsule 30 mg 30 mg oral BID enoxaparin (LOVENOX) syringe 30 mg 30 mg subcutaneous Daily-2100 famotidine (PEPCID) tablet 20 mg 20 mg oral Q12H FENG finasteride (PROSCAR) tablet 5 mg 5 mg oral QAM polyethylene glycol (MIRALAX) packet 17 g 17 g oral Daily senna (SENOKOT) tablet 1 tablet 1 tablet oral BID tamsulosin (FLOMAX) extended release capsule 0.4 mg 0.4 mg oral Daily with dinner As needed PRN Medications Medication Dose Route Frequency Last Admin acetaminophen (TYLENOL) tablet 1,000 mg 1,000 mg oral Q6H PRN 1,000 mg at 10/09/24 0915 bisacodyL (DULCOLAX) suppository 10 mg 10 mg rectal Daily PRN 10 mg at 10/05/24 2337 Carrier Fluids for Secondary Infusion - 0.9% Sodium Chloride 30 mL intravenous PRN ondansetron (ZOFRAN) injection 4 mg 4 mg intravenous Q6H PRN oxyCODONE (ROXICODONE) tablet 5 mg 5 mg oral Q4H PRN 5 mg at 10/09/24 0633 sodium chloride 0.9% flush 0.5-20 mL 0.5-20 mL intra-catheter PRN Labs: Lab Results Component Value Date SODIUM 141 10/08/2024 SODIUM 142 10/07/2024 SODIUM 140 10/06/2024 Lab Results Component Value Date GLUCOSE 108 10/08/2024 CALCIUM 8.6 10/08/2024 POTASSIUM 4.6 10/08/2024 CO2 25 10/08/2024 CHLORIDE 107 10/08/2024 BUNSER 33 (H) 10/08/2024 CREATININE 1.33 (H) 10/08/2024 Lab Results Component Value Date WBC 19.8 (H) 10/08/2024 WBC 17.2 (H) 10/07/2024 WBC 17.1 (H) 10/06/2024 HGB 11.2 (L) 10/08/2024 HGB 11.4 (L) 10/07/2024 HGB 10.8 (L) 10/06/2024 HCT 32.9 (L) 10/08/2024 HCT 32.7 (L) 10/07/2024 HCT 30.7 (L) 10/06/2024 LABPLAT 264 10/08/2024 LABPLAT 264 10/07/2024 LABPLAT 256 10/06/2024 Lab Results Component Value Date INR 1.14 10/02/2024 INR 1.02 09/13/2024 PT 12.4 10/02/2024 PT 11.0 09/13/2024 APTT 27 (L) 10/02/2024 APTT 30 09/13/2024 APTT 30 09/13/2024 No components found for: TROPONIN PT/OT assessment: PT Recommendation/Plan: (S) Inpatient Rehab Facility OT Recommendation: Inpatient Rehab Facility Assessment/Plan Hospital Day: 8 Lili Delgado is a 74 y.o. year old male who underwent T3-5 laminectomy and decompression, arachnoidcyst wall fenestration. Plan - EKG yesterday sinus tach, today sinus beba with 1st degree AV block - LEDs for elevating WBC Lactate trend, will trend until normal Dispo rehab (needs referrals) DVT prophylaxis: lovenox Responsible team (call resident in bold with questions) Chris Dean Note created by Wild Perez MD on 10/09/2024 at 7:40 PM. Cosigned by James Robles MD at 10/10/2024 9:20 AM DRY PAN CHARGER PAN CHARGER PAN CHARGER * Wild Perez MD - 10/08/2024 6:32 PM CST Neurosurgery Daily Progress Note 10/08/2024 Hospital Course 10/02 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 Lost BLE motors intra-op. POC with LLE weaknessand minimal RLE movement, improving 10/03 NS bolus given in PACU. Admitted to NNICU. MAP goal relaxed to >90. 10/04 MAP goals liberalized to >80. CXR with ill-defined airway opacity in L mid/upper lung and RML c/f aspiration vs PNA. CTX and azithro started for suspected CAP. PT/OT rec rehab. Trending trops and lactate. RVP and UA neg. 10/05 MAPs liberalized to normotension. Dex wean ordered. TTF. 10/07 failed void trial. Zheng replaced. Infectious workup sent. CXR negative. Rpt UA negative. Blood cx sent Subjective Chest pain Objective Physical Exam: Awake, regards, follows commands Oriented x3 CNGI RUE 5/5 in delt/bi/tri/we/hg LUE 5/5 in delt/bi/tri/we/hg RLE 4-/5 in IP, 4/5 q/h, 2/5 TA, 4- gastroc, 2/5 EHL LLE 4+/5 in IP/q/h/TA/gastroc Incision dressed, drain x1 Vitals: 24hr min/max vitals: Temp Min: 36.2 ??C (97.1 ??F) Max: 36.6 ??C (97.8 ??F) Pulse Min: 47 Max: 82 Resp Min: 16 Max: 17 SpO2 Min: 90 % Max: 100 % MAP (mmHg) Min: 56 Max: 101 Intake and output: I/O last 2 completed shifts: In: - Out: 2600 [Urine:2600] Medications: Scheduled Scheduled Medications Medication Dose Route Frequency baclofen (LIORESAL) tablet 10 mg 10 mg oral BID dexAMETHasone (DECADRON) tablet 1 mg 1 mg oral Q8H FENG Followed by [START ON 10/09/2024] dexAMETHasone (DECADRON) tablet 1 mg 1 mg oral Q12H FENG Followed by [START ON 10/11/2024] dexAMETHasone (DECADRON) tablet 1 mg 1 mg oral Daily docusate sodium (COLACE) capsule 100 mg 100 mg [address] BID DULox[address] DR (CYMBALTA) extended release capsule 30 mg 30 mg oral BID enoxaparin (LOVENOX) syringe 30 mg 30 mg subcutaneous Daily-2100 famotidine (PEPCID) tablet 20 mg 20 mg oral Q12H FENG finasteride (PROSCAR) tablet 5 mg 5 mg oral QAM polyethylene glycol (MIRALAX) packet 17 g 17 g oral Daily senna (SENOKOT) tablet 1 tablet 1 tablet oral BID As needed PRN Medications Medication Dose Route Frequency Last Admin acetaminophen (TYLENOL) tablet 1,000 mg 1,000 mg oral Q6H PRN 1,000 mg at 10/07/24 1827 bisacodyL (DULCOLAX) suppository 10 mg 10 mg rectal Daily PRN 10 mg at 10/05/24 2337 Carrier Fluids for Secondary Infusion - 0.9% Sodium Chloride 30 mL intravenous PRN ondansetron (ZOFRAN) injection 4 mg 4 mg intravenous Q6H PRN oxyCODONE (ROXICODONE) tablet 5 mg 5 mg oral Q4H PRN 5 mg at 10/08/24 0842 sodium chloride 0.9% flush 0.5-20 mL 0.5-20 mL intra-catheter PRN Labs: Lab Results Component Value Date SODIUM 142 10/07/2024 SODIUM 140 10/06/2024 SODIUM 143 10/05/2024 Lab Results Component Value Date GLUCOSE 140 10/07/2024 CALCIUM 8.5 10/07/2024 POTASSIUM 4.5 10/07/2024 CO2 26 10/07/2024 CHLORIDE 107 10/07/2024 BUNSER 33 (H) 10/07/2024 CREATININE 1.21 10/07/2024 Lab Results Component Value Date WBC 17.2 (H) 10/07/2024 WBC 17.1 (H) 10/06/2024 WBC 16.5 (H) 10/05/2024 HGB 11.4 (L) 10/07/2024 HGB 10.8 (L) 10/06/2024 HGB 10.5 (L) 10/05/2024 HCT 32.7 (L) 10/07/2024 HCT 30.7 (L) 10/06/2024 HCT 31.4 (L) 10/05/2024 LABPLAT 264 10/07/2024 LABPLAT 256 10/06/2024 LABPLAT 238 10/05/2024 Lab Results Component Value Date INR 1.14 10/02/2024 INR 1.02 09/13/2024 PT 12.4 10/02/2024 PT 11.0 09/13/2024 APTT 27 (L) 10/02/2024 APTT 30 09/13/2024 APTT 30 09/13/2024 No components found for: TROPONIN PT/OT assessment: PT Recommendation/Plan: Inpatient Rehab Facility OT Recommendation: Inpatient Rehab Facility Assessment/Plan Hospital Day: 7 Lili Delgado is a 74 y.o. year old male who underwent T3-5 laminectomy and decompression, arachnoidcyst wall fenestration. Plan EKG and trops today for CP Lactate trend, will trend until normal Dispo rehab (needs referrals) DVT prophylaxis: lovenox Responsible team (call resident in bold with questions) Chris Dean Note created by Wild Perez MD on 10/08/2024 at 6:32 PM. Cosigned by Miles Rodrigez MD at 10/08/2024 9:44 PM DRY PAN CHARGER PAN CHARGER PAN CHARGER * Nicko Zee - 10/07/2024 2:08 PM CST Physical Therapy Physical Therapy Progress Note NOTE: This is a summary note of the cuellar components of the treatment session. For full details, review chart for all flowsheets documented on by this physical therapy clinician on this date. Vital signs documented in vital signs flowsheet. Care plan progress documented in Care Plan Activity. For questions, please review the treatment team and contact the PT or ENGLISH TUTOR currently assigned to this patient. If a physical therapy clinician is not assigned to this patient, please call [phone]. 10/07/24 1408 PT Last Visit Session Type Treatment PT Received On 10/07/24 Safe Environment Arm band checked;Gait belt utilized for all out of bed mobility;Patient found sitting in chair Subjective Agreeable to Therapy Family/Caregiver Present Yes (Pt's daughter and granddaughter present during session) Current Functional Status PT Functional Mobility interventions: bed mobility, transfers, ambulation, education Precautions Precautions Fall risk Pain Assessment Pain Assessment 0-10 Pain Score 4 Pain Type Surgical pain Pain Location Back (Lumbar) Pain Orientation Generalized Pain Interventions Repositioned;RN Notified (MARK Galarza present at beginning and end of session) Cognition Arousal/Alertness Alert;Appropriate responses to stimuli Orientation Oriented X4 (person, place, time, situation) Balance Balance Yes Static Sitting Balance Static Sitting-Balance Support Bilateral upper extremity supported Static Sitting-Sitting Surface Chair Static Sitting-Level of Assistance Moderate assistance Static Sitting-Comment/# of Minutes Unsupported sitting. ModA to help patient hold balance in sitting Static Standing Balance Static Standing-Balance Support Bilateral upper extremity supported (with Wheeled walker) Static Standing-Standing Surface Floor Static Standing-Level of Assistance Maximum assistance Static Standing-Comment/# of Minutes maxA x 2 for force production, balance, and stability. Seated Seated-Exercises Lower extremity (LAQ on LLE only) Reps/Sets 1 set 10 reps Seated-Motion AROM Seated-Exercise Comments Therex: AROM ankle pumps, long arc quads (LLE only), glute sets Bed Mobility Bed Mobility No Bed Mobility 1 Bed Mobility Comments 1 session performed in chair Transfers Transfer Yes Transfer 1 Transfer From 1 Sit Transfer Type 1 To and from Transfer to 1 Stand Technique 1 Sit to stand;Stand to sit Transfer Device 1 Wheeled walker Transfer Level of Assistance 1 Maximum Assist Trials/Comments 1 maxA x 2 for force production, balance and to slow descent into chair. completed 5 repetitions with max assist. Transfers 2 Transfer From 2 Sit Transfer Type 2 To and from Transfer to 2 Stand Technique 2 Sit to stand;Stand to sit Transfer Device 2 Wheeled walker Transfer Level of Assistance 2 Moderate Assist (maxA x 2 people) Trials/Comments 2 modA x 2 for force production, balance and to slow descent into chair. Completed 2 repetitions at mod assist Ambulation Functional Ambulation Category 0 Ambulation No Stairs Stairs No Other Comments Other PT Comments All precautions maintained during therapy session today. Patient with bowel incontinence during sit to stands that he stated that he could not really feel. RN Geovanni present to assist with patient. Patient with improving endurance during standing today. Patient with significant weakness in RLE. Basic Mobility - 6 Click How much difficulty does the patient have: Turning over in bed 2 How much difficulty does the patient currently have: Sitting down and standing up from a chair witharms? 2 How much difficulty does the patient have: Moving from lying on back to sitting on the side of the bed? 2 How much difficulty does the patient have: Moving to and from a bed to a chair including wheelchair? 2 How much help does the patient currently need: Walk in hospital room? 1 How much help from another person does the patient currently need: Climbing 3-5 steps with a railing? 1 Total 6 Click Score (range 6-24) 10 Score Interpretation 28.13 Safe Environment End of Therapy Session Safe Environment End of Therapy Session Call light within reach;Overbed table within reach;Patient left in chair;RN notified Assessment Prognosis Good Problem List Reduced mobility;Decreased strength;Decreased range of motion;Decreased endurance;Impaired balance;Pain Barriers to Discharge Current Mobility Status Plan Plan Continue with current plan;If this is the last note, consider this the discharge summary Recommendation/Plan PT Recommendation/Plan Inpatient Rehab Facility Patient at high risk for Falls;Readmission;Injury due to reduced functional status;Injury due to balance deficits;Injury at home as patient has not returned to prior level of function Recommend Inpatient Rehab/Acute Rehab due to Ability to actively participate in intensive therapy 3hours/day, 5 days/week or 900 minutes per week;Highly motivated to participate in therapy;Not at baseline due to impaired ability to complete ADLs;Impaired ability to complete functional mobility;Likely to return to the community at discharge with support system in place;Requires greater than 25% physical assistance with most mobility tasks;Requires greater than 25% physical assistance with most ADL tasks;Requires multiple therapy disciplines to address functional deficits;Patient and caregiverrequire specialized skilled training due to new level of function/diagnosis PT Frequency during current admission 3-5x/wk Treatment/Interventions during current admission Balance Training;Bed mobility;Functional activity;Functional transfer training;Gait training;Range of motion;Strengthening;Transfer training PT Equipment Recommended Wheeled walker Progress during current admission Progressing toward goals PT - Next Appointment 10/09/24 PT - OK to Discharge No PT Evaluation Complete Yes PT Time Calculation PT Start Time 1408 PT Stop Time 1442 PT Time Calculation (min) 34 min Multi-Disciplinary Problems (from Physical Therapy) Active Problems Problem: Mobility Start Date: 10/04/24 Goal Start Date Expected End Date End Date LTG - Patient will ambulate household distance with LRD 10/04/24 11/03/24 -- Goal Start Date Expected End Date End Date STG - Patient will ambulate 90 ft with LRD with min A 10/04/24 10/18/24 -- Problem: Transfers Start Date: 10/04/24 Goal Start Date Expected End Date End Date STG - Transfer from bed to chair CGA 10/04/24 10/18/24 -- Goal Start Date Expected End Date End Date STG - Patient to transfer to and from sit to supine CGA 10/04/24 10/18/24 -- Goal Start Date Expected End Date End Date STG - Patient will transfer sit to and from stand CGA 10/04/24 10/18/24 -- Problem: Orthotic Start Date: 10/07/24 Goal Start Date Expected End Date End Date STG - Patient and/or caregiver will perform home exercise program with the following level of assist: 10/07/24 10/14/24 -- Goal Details: supervision Cosigned by Roe Calles, PT at 10/07/2024 3:15 PM DRY PAN CHARGER PAN CHARGER PAN CHARGER * Osiris Guillen NP - 10/06/2024 2:41 PM CST Drain Removal Note [place] drain x1 removed without difficulty. Sutures removed, drain pulled, tubing intact upon removal. Sterile 2x2 dressing and tape placed over insertion site. No erythema noted. Patient tolerated procedure well. RN notified of removal. Plan: - Okay to remove dressing tomorrow and leave site open to air. Osiris Guillen NP PAN CHARGER * Tiffanie Tirado, PT - 10/06/2024 1:34 PM CST Physical Therapy Progress Note NOTE: This is a summary note of the cuellar components of the treatment session. For full details, review chart for all flowsheets documented on by this physical therapy clinician on this date. Vital signs documented in vital signs flowsheet. Care plan progress documented in Care Plan Activity. For questions, please review the treatment team and contact the PT or ENGLISH TUTOR currently assigned to this patient. If a physical therapy clinician is not assigned to this patient, please call [phone]. 10/06/24 1334 PT Last Visit Session Type Treatment PT Received On 10/06/24 Safe Environment Arm band checked;Patient found in supine;Session completed bedside;Gait belt not utilized, see comment (2/2 incision/drains) Subjective Agreeable to Therapy Family/Caregiver Present Yes (pt's present at end of session) Precautions Precautions Fall risk (spinal protective strategies) Precaution Handout Issued No Precaution Comments verbally reviewed precautions throughout session Activity Tolerance Activity Tolerance Comments Hina: hard Pain Assessment Pain Assessment 0-10 Pain Score 6 Pain Radiating Towards back Pain Interventions RN Notified (Skinny notified) Cognition Arousal/Alertness Alert Orientation Oriented X4 (person, place, time, situation) Following Commands Follows all commands and directions without difficulty Safety Judgment Good awareness of safety precautions Static Sitting Balance Static Sitting-Balance Support Bilateral upper extremity supported Static Sitting-Sitting Surface Bed Static Sitting-Level of Assistance Moderate assistance;Contact guard Static Sitting-Comment/# of Minutes initially modA for posterior LOB progressing to CGA with prolonged sitting Static Standing Balance Static Standing-Balance Support Bilateral upper extremity supported Static Standing-Standing Surface Floor Static Standing-Level of Assistance Maximum assistance Static Standing-Comment/# of Minutes maxA for balance, force production. Verbal/visual/tacticle cues for increased hip and knee extension and increased use of B UE for force production Bed Mobility Bed Mobility Yes Bed Mobility 1 Bed Mobility From 1 Supine Bed Mobility Type 1 To and from Bed Mobility to 1 Rolling left;Rolling right Level of Assistance 1 Moderate Assist Bed Mobility Comments 1 modA for force production, LE management Bed Mobility 2 Bed Mobility From 2 Supine Bed Mobility Type 2 To Bed Mobility to 2 Edge of Bed Level of Assistance 2 Moderate Assist (x2 assist) Bed Mobility Comments 2 via log roll technique, modA x 2 for LE managment and trunk elevation Transfers Transfer Yes Transfer 1 Transfer From 1 Sit Transfer Type 1 To and from Transfer to 1 Stand Technique 1 Sit to stand;Stand to sit Transfer Device 1 Wheeled walker Transfer Level of Assistance 1 Maximum Assist (x2 assist) Trials/Comments 1 maxA x 2 for force production, balance, VC for proper technique Transfers 2 Transfer From 2 Bed Transfer Type 2 To Transfer to 2 Chair with arms Technique 2 Stand pivot Transfer Device 2 Wheeled walker Transfer Level of Assistance 2 Maximum Assist (x2 assist) Trials/Comments 2 maxA x 2 for balance, force production, weight shift. Pt unable to maintain B knee extension during pivot, slowly sinking Other Comments Other PT Comments Pt with bowel incontinence with pt reporting he did not feel it when he went, [employer]NA[employer] and RN notified. Pt unable to move R LE against gravity at hip/knee/ankle. Basic Mobility - 6 Click How much difficulty does the patient have: Turning over in bed 2 How much difficulty does the patient currently have: Sitting down and standing up from a chair witharms? 2 How much difficulty does the patient have: Moving from lying on back to sitting on the side of the bed? 2 How much difficulty does the patient have: Moving to and from a bed to a chair including wheelchair? 2 How much help does the patient currently need: Walk in hospital room? 1 How much help from another person does the patient currently need: Climbing 3-5 steps with a railing? 1 Total 6 Click Score (range 6-24) 10 Score Interpretation 28.13 Safe Environment End of Therapy Session Safe Environment End of Therapy Session Patient left in chair;RN notified;Call light within reach;Overbed table within reach (RN Skinny notified) Assessment Problem List Reduced mobility;Gait deviations;Decreased strength;Decreased range of motion;Decreased endurance;Impaired balance;Decreased active flexion Barriers to Discharge Current Mobility Status Plan Plan Continue with current plan;If this is the last note, consider this the discharge summary Recommendation/Plan PT Recommendation/Plan Inpatient Rehab Facility Patient at high risk for Falls;Readmission;Injury due to reduced functional status;Injury due to balance deficits;Injury at home as patient has not returned to prior level of function Recommend Inpatient Rehab/Acute Rehab due to Ability to actively participate in intensive therapy 3hours/day, 5 days/week or 900 minutes per week;Highly motivated to participate in therapy;Impaired ability to complete functional mobility;Likely to return to the community at discharge with support system in place;Requires greater than 25% physical assistance with most mobility tasks;Requires multiple therapy disciplines to address functional deficits;Patient and caregiver require specialized skilled training due to new level of function/diagnosis;Requires skilled therapy interventions to address neurological deficits PT Frequency during current admission 3-5x/wk Treatment/Interventions during current admission Balance Training;Bed mobility;Functional activity;Gait training;Neuromuscular re-education;Stair training;Strengthening;Therapeutic activity;Therapeutic exercise;Transfer training Progress during current admission Progressing toward goals PT - Next Appointment 10/07/24 PT Time Calculation PT Start Time 1334 PT Stop Time 1350 PT Time Calculation (min) 16 min Multi-Disciplinary Problems (from Physical Therapy) Active Problems Problem: Mobility Start Date: 10/04/24 Goal Start Date Expected End Date End Date LTG - Patient will ambulate household distance with LRD 10/04/24 11/03/24 -- Goal Start Date Expected End Date End Date STG - Patient will ambulate 90 ft with LRD with min A 10/04/24 10/18/24 -- Problem: Transfers Start Date: 10/04/24 Goal Start Date Expected End Date End Date STG - Transfer from bed to chair CGA 10/04/24 10/18/24 -- Goal Start Date Expected End Date End Date STG - Patient to transfer to and from sit to supine CGA 10/04/24 10/18/24 -- Goal Start Date Expected End Date End Date STG - Patient will transfer sit to and from stand CGA 10/04/24 10/18/24 -- PAN CHARGER * Harley Allen, OT - 10/06/2024 1:18 PM CST Occupational Therapy Occupational Therapy Progress Note NOTE: This is a summary note of the cuellar components of the treatment session. For full details, review chart for all flowsheets documented on by this occupational therapy clinician on this date. Vitalsigns documented in vital signs flowsheet. Care plan progress documented in Care Plan Activity. For questions, please review the treatment team and contact the occupational therapist currently assigned to this patient. If an occupational therapist is not assigned to this patient, please call [phone]. 10/06/24 1318 General Session Type Treatment OT Received On 10/06/24 Safe Environment Arm band checked;Patient found in supine;Gait belt not utilized, see comment (2/2 spinal incisions) Subjective Agreeable to Therapy Family/Caregiver Present No Precautions Precautions Fall risk (Spinal protective strategies) Precaution Handout Issued No Precaution Comments Verbally reviewed precautions prior to mobility. Pt demonstrated and verbalizedunderstanding. Pain Assessment Pain Assessment 0-10 Pain Score 6 Pain Location Back (Lumbar) Pain Orientation Generalized Pain Interventions Repositioned;RN Notified (MARK Babb) Balance Balance Yes Dynamic Sitting Balance Dynamic Sitting-Balance Support No upper extremity supported Dynamic Sitting-Balance Lateral lean;Forward lean;Reaching for objects;Reaching across midline Dynamic Sitting-Sitting Surface Bed Dynamic Sitting-Level of Assistance Moderate assistance Dynamic Sitting-Comments Mod A for balance and steadying Static Standing Balance Static Standing-Balance Support Bilateral upper extremity supported Static Standing-Standing Surface Floor Static Standing-Level of Assistance Maximum assistance Static Standing-Comment/# of Minutes Max A for balance ADL ADLS (WDL) X Grooming Grooming: Where assessed Chair Grooming: Level of assistance Moderate Assist Grooming: Assistance with Safety;Balance (Set up for task, Total for balance) LE Dressing LE Dressing: Where assessed Edge of bed LE Dressing: Level of assistance Dependent Toileting Toileting: Where assessed Supine, bed Toileting: Level of assistance Maximum Assist Toileting: Assistance with Posterior;Clothing management down;Clothing management up;Anterior (Max for task) Bed Mobility Bed Mobility Yes Bed Mobility 1 Bed Mobility From 1 Supine Bed Mobility Type 1 To and from Bed Mobility to 1 Rolling left;Rolling right Level of Assistance 1 Moderate Assist Bed Mobility Comments 1 Mod A for force production Bed Mobility 2 Bed Mobility From 2 Supine Bed Mobility Type 2 To Bed Mobility to 2 Edge of Bed Level of Assistance 2 Moderate Assist (x2) Bed Mobility Comments 2 Mod A x2 for balance and force production Transfers Transfer Yes Transfer 1 Transfer From 1 Sit Transfer Type 1 To and from Transfer to 1 Stand Technique 1 Sit to stand;Stand to sit Transfer Device 1 Wheeled walker Transfer Level of Assistance 1 Maximum Assist (x2) Trials/Comments 1 Max A x2 for force production and balance Toilet Transfers Toilet Transfer From Bed Toilet Transfer Type To Toilet Transfer to (Chair to sim) Toilet Transfer Technique Stand pivot Toilet Transfer: Equipment Wheeled walker Toilet Transfers Maximal assistance (x2) Toilet Transfers Comments Max A x2 force production and balance Cognition Arousal/Alertness Alert;Appropriate responses to stimuli Attention Span Appears intact Memory Appears intact Current communication Appears Intact Orientation Oriented X4 (person, place, time, situation) Following Commands Follows all commands and directions without difficulty Safety Judgment Good awareness of safety precautions Awareness of Errors Good awareness of errors made Insight Fully aware of deficits Problem Solving Able to problem solve independently Compliance/Behavior Easy to engage Perseveration Not present Other Comments Comments Pt seen this date for co-tx with PT. Pt able to tolerate mobility to chair wtih max a x2. Pt would benefit from continued skilled therapy services to improve ADL ind, balance, and safety. Daily Activity - 6 Clicks Putting on and taking off regular lower body clothing 1 Bathing 2 Toileting 2 Putting on and taking off upper body clothing 2 Personal Grooming 2 Eating Meals 3 Total Score (range 6-24) 12 Score Interpretation 30.60 Safe Environment End of Therapy Session Safe Environment End of Therapy Session Patient left in chair;RN notified;Call light within reach;Overbed table within reach Assessment Problem List Decreased endurance;Decreased balance;Decreased fine motor control;Decreased functional mobility;Decreased ADL independence;Decreased IADL independence;Decreased gross motor control Barriers to Discharge Current ADL Status;Current Mobility Status Barrier Comments Fall risk Plan Plan Continue with current plan;If this is the last note, consider this the discharge summary Recommendation/Plan OT Recommendation Inpatient Rehab Facility Patient at high risk for Falls;Readmission;Injury due to decreased ability to care for self;Injury due to reduced functional status;Injury due to balance deficits Recommend Inpatient Rehab/Acute Rehab due to Ability to actively participate in intensive therapy 3hours/day, 5 days/week or 900 minutes per week;Not at baseline due to impaired ability to complete ADLs;Impaired ability to complete functional mobility;Likely to return to the community at dischargewith support system in place OT Frequency during current admission 5-7x/wk Treatment/Interventions during current admission Bed mobility;Balance Training;ADL/IADL retraining;Endurance training;Functional transfer training;Functional mobility training;Functional activity Progress during current admission Progressing toward goals OT - Next Appointment 10/09/24 OT - OK to Discharge Yes OT Evaluation Complete Yes OT Time Calculation OT Start Time 1318 OT Stop Time 1333 OT Time Calculation (min) 15 min Multi-Disciplinary Problems (from Occupational Therapy) Active Problems Problem: Grooming Start Date: 10/04/24 Goal Start Date Expected End Date End Date STG - Patient will complete grooming with mod A 10/04/24 10/11/24 -- Problem: OT Misc Start Date: 10/04/24 Goal Start Date Expected End Date End Date OT LTG - Pt will complete Adls with modified independence 10/04/24 12/01/24 -- Problem: Toileting Start Date: 10/04/24 Goal Start Date Expected End Date End Date STG - Patient will complete toileting tasks with mod A 10/04/24 10/11/24 -- PAN CHARGER * Wild Perez MD - 10/06/2024 7:50 AM CST Neurosurgery Daily Progress Note 10/06/2024 Hospital Course 10/02 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 Lost BLE motors intra-op. POC with LLE weaknessand minimal RLE movement, improving 10/03 NS bolus given in PACU. Admitted to NNICU. MAP goal relaxed to >90. 10/04 MAP goals liberalized to >80. CXR with ill-defined airway opacity in L mid/upper lung and RML c/f aspiration vs PNA. CTX and azithro started for suspected CAP. PT/OT rec rehab. Trending trops and lactate. RVP and UA neg. 10/05 MAPs liberalized to normotension. Dex wean ordered. TTF. Subjective no complaints and pain well controlled Objective Physical Exam: Awake, regards, follows commands Oriented x3 CNGI RUE 5/5 in delt/bi/tri/we/hg LUE 5/5 in delt/bi/tri/we/hg RLE 4-/5 in IP, 4/5 q/h, 2/5 TA, 4- gastroc, 2/5 EHL LLE 4+/5 in IP/q/h/TA/gastroc Incision dressed, drain x1 Vitals: 24hr min/max vitals: Temp Min: 36.3 ??C (97.3 ??F) Max: 37.1 ??C (98.7 ??F) Pulse Min: 54 Max: 71 Resp Min: 12 Max: 28 SpO2 Min: 92 % Max: 100 % MAP (mmHg) Min: 80 Max: 113 Intake and output: I/O last 2 completed shifts: In: 820 [P.O.:800; IV Piggyback:20] Out: 2500 [Urine:2450; Drains:50] Medications: Scheduled Scheduled Medications Medication Dose Route Frequency azithromycin (ZITHROMAX) tablet 500 mg 500 mg oral Daily baclofen (LIORESAL) tablet 10 mg 10 mg oral BID cefTRIAXone (ROCEPHIN) 2,000 mg/20 mL in sterile water (premix) 2,000 mg 2,000 mg intravenous Q24H FENG dexAMETHasone (DECADRON) tablet 4 mg 4 mg oral Q6H FENG Followed by dexAMETHasone (DECADRON) tablet 4 mg 4 mg oral Q8H FENG Followed by [START ON 10/07/2024] dexAMETHasone (DECADRON) tablet 2 mg 2 mg oral Q8H FENG Followed by [START ON 10/08/2024] dexAMETHasone (DECADRON) tablet 1 mg 1 mg oral Q8H FENG Followed by [START ON 10/09/2024] dexAMETHasone (DECADRON) tablet 1 mg 1 mg oral Q12H FENG Followed by [START ON 10/11/2024] dexAMETHasone (DECADRON) tablet 1 mg 1 mg oral Daily docusate sodium (COLACE) capsule 100 mg 100 mg oral BID DULoxetine DR (CYMBALTA) extended release capsule 30 mg 30 mg oral BID enoxaparin (LOVENOX) syringe 30 mg 30 mg subcutaneous Daily-2100 famotidine (PEPCID) tablet 20 mg 20 mg oral Q12H FENG finasteride (PROSCAR) tablet 5 mg 5 mg oral QAM polyethylene glycol (MIRALAX) packet 17 g 17 g oral Daily senna (SENOKOT) tablet 1 tablet 1 tablet oral BID As needed PRN Medications Medication Dose Route Frequency Last Admin acetaminophen (TYLENOL) tablet 1,000 mg 1,000 mg oral Q6H PRN bisacodyL (DULCOLAX) suppository 10 mg 10 mg rectal Daily PRN 10 mg at 10/05/242336 Carrier Fluids for Secondary Infusion - 0.9% Sodium Chloride 30 mL intravenous PRN ondansetron (ZOFRAN) injection 4 mg 4 mg intravenous Q6H PRN oxyCODONE (ROXICODONE) tablet 5 mg 5 mg oral Q4H PRN sodium chloride 0.9% flush 0.5-20 mL 0.5-20 mL intra-catheter PRN Labs: Lab Results Component Value Date SODIUM 143 10/05/2024 SODIUM 144 10/04/2024 SODIUM 142 10/03/2024 Lab Results Component Value Date GLUCOSE 139 10/05/2024 CALCIUM 8.8 10/05/2024 POTASSIUM 4.4 10/05/2024 CO2 25 10/05/2024 CHLORIDE 108 10/05/2024 BUNSER 30 (H) 10/05/2024 CREATININE 1.14 10/05/2024 Lab Results Component Value Date WBC 16.5 (H) 10/05/2024 WBC 23.0 (H) 10/04/2024 WBC 26.3 (H) 10/03/2024 HGB 10.5 (L) 10/05/2024 HGB 10.5 (L) 10/04/2024 HGB 11.3 (L) 10/03/2024 HCT 31.4 (L) 10/05/2024 HCT 31.0 (L) 10/04/2024 HCT 33.7 (L) 10/03/2024 LABPLAT 238 10/05/2024 LABPLAT 207 10/04/2024 LABPLAT 302 10/03/2024 Lab Results Component Value Date INR 1.14 10/02/2024 INR 1.02 09/13/2024 PT 12.4 10/02/2024 PT 11.0 09/13/2024 APTT 27 (L) 10/02/2024 APTT 30 09/13/2024 APTT 30 09/13/2024 No components found for: TROPONIN PT/OT assessment: PT Recommendation/Plan: Inpatient Rehab Facility OT Recommendation: Inpatient Rehab Facility Assessment/Plan Hospital Day: 5 Lili Delgado is a 74 y.o. year old male who underwent T3-5 laminectomy and decompression, arachnoidcyst wall fenestration. Plan Normotension Dc zheng Lactate 2.2(2.5), will trend until normal Trops downtrending, dc trend Drain x1 (50/10), dc today Dispo rehab (needs referrals) DVT prophylaxis: lovenox Responsible team (call resident in bold with questions) Chris Dean Note created by Wild Perez MD on 10/06/2024 at 7:50 AM. Cosigned by James Robles MD at 10/06/2024 1:09 PM DRY PAN CHARGER PAN CHARGER PAN CHARGER * Willy Nguyen MD - 10/05/2024 12:41 PM CST Critical Care Attending Note: 74 yo M with a T3-T5 laminectomy and arachnoid cyst wall fenestration s/p surgery and with CAP. Yest: MAP > 80 --Had lactate elevation now downtrending in the setting of abx --Able to wean pressors. Exam - AAOx3, FC, EOMI, face symmetric, UE symmetric at least 4/5 and RLE knee flexion/extention appears 2-3/5 otherwise at least 4/5. LLE appears full. Critical care was necessary to treat or prevent imminent or life-threatening deterioration of the following conditions: Spinal ischemia, lactic acidosis My Assessment and Plan: # Post spinal surgery - concern for spinal ischemia --Dex 6 q6 --MAP>80 to augment --pressors as needed --NC q2 # Lactic acidosis - likely from CAP and post surg. On pressors till yesterday. --lactate q day #AHRF - occasional desasts to high 80s, comes back up. From CAP and +/- atelactesis --SpO2> 92% --OOB, IS, and acapella as able --CXR if persistent desat # Community acquired pneumonia - with leukocytosis --Cont CTX 2/, Azithro -3/ Access/Lines/Drains: --PIV x2 DVT ppx: SCDs, lovenox ppx Attending Documentation: I have seen and examined this patient on the day of service. I have reviewed and confirmed the history, physical exam, laboratory and radiographic data with the house staff as documented in the resident note/mid level provider. I have reviewed and discussed my treatment plan with the ICU team and other medical/healthcare economics consultant staff. Critical Care Time: I have spent 30 minutes in full attendance with this critically ill patient making frequent reassessments and decisions regarding this patient's complex medical care. Critical care time was exclusive of separately billable procedures, treating other patients and teaching time. Willy Nguyen MD Stroke/Neurointensive Attending PAN CHARGER * Magali Ocampo, PT - 10/05/2024 9:34 AM CST Physical Therapy Physical Therapy Progress Note NOTE: This is a summary note of the cuellar components of the treatment session. For full details, review chart for all flowsheets documented on by this physical therapy clinician on this date. Vital signs documented in vital signs flowsheet. Care plan progress documented in Care Plan Activity. For questions, please review the treatment team and contact the PT or ENGLISH TUTOR currently assigned to this patient. If a physical therapy clinician is not assigned to this patient, please call [phone]. 10/05/24 2662 PT Last Visit Session Type Treatment PT Received On 10/05/24 Safe Environment Arm band checked;Patient found in supine;Session completed bedside;Gait belt utilized for all out of bed mobility Subjective Agreeable to Therapy Precautions Precautions Fall risk Pain Assessment Pain Assessment No/denies pain Cognition Arousal/Alertness Alert;Appropriate responses to stimuli Orientation Oriented X4 (person, place, time, situation) Static Sitting Balance Static Sitting-Balance Support Bilateral upper extremity supported;Feet supported Static Sitting-Sitting Surface Bed Static Sitting-Level of Assistance Minimum assistance Static Standing Balance Static Standing-Level of Assistance Moderate assistance (x2 people) Therapeutic Exercises Lower Extremity PROM Right;Hip;Knee;Ankle Lower Extremity PROM Comments hip flexion, knee flexion, ankle DF/PF x10 reps Bed Mobility 1 Bed Mobility From 1 Supine Bed Mobility Type 1 To Bed Mobility to 1 Edge of bed Level of Assistance 1 Maximum Assist Bed Mobility Comments 1 assist with manuevering LEs and elevation of trunk Transfer 1 Transfer From 1 Sit Transfer Type 1 To and from Transfer to 1 Stand Technique 1 Sit to stand;Stand to sit Transfer Device 1 Hand held assist Transfer Level of Assistance 1 Moderate Assist (x2 people) Trials/Comments 1 decreased force production, blocking knees Transfers 2 Transfer From 2 Bed;Sit Transfer Type 2 To Transfer to 2 Chair with arms Technique 2 Stand pivot Transfer Device 2 Hand held assist Transfer Level of Assistance 2 Moderate Assist (x2 people) Trials/Comments 2 decreased force production, blocking knees, assist to pivot hips Basic Mobility - 6 Click How much difficulty does the patient have: Turning over in bed 2 How much difficulty does the patient currently have: Sitting down and standing up from a chair witharms? 2 How much difficulty does the patient have: Moving from lying on back to sitting on the side of the bed? 2 How much difficulty does the patient have: Moving to and from a bed to a chair including wheelchair? 2 How much help does the patient currently need: Walk in hospital room? 1 How much help from another person does the patient currently need: Climbing 3-5 steps with a railing? 1 Total 6 Click Score (range 6-24) 10 Score Interpretation 28.13 Safe Environment End of Therapy Session Safe Environment End of Therapy Session Patient left in recliner;RN notified;Call light within reach;Bed alarm in place and activated Plan Plan Continue with current plan;If this is the last note, consider this the discharge summary Recommendation/Plan PT Recommendation/Plan Inpatient Rehab Facility Patient at high risk for Falls;Readmission;Injury due to reduced functional status;Injury due to balance deficits;Injury at home as patient has not returned to prior level of function Recommend Inpatient Rehab/Acute Rehab due to Ability to actively participate in intensive therapy 3hours/day, 5 days/week or 900 minutes per week;Highly motivated to participate in therapy;Impaired ability to complete functional mobility;Likely to return to the community at discharge with support system in place;Requires greater than 25% physical assistance with most mobility tasks;Requires multiple therapy disciplines to address functional deficits;Patient and caregiver require specialized skilled training due to new level of function/diagnosis;Requires skilled therapy interventions to address neurological deficits PT Frequency during current admission 3-5x/wk PT - Next Appointment 10/06/24 PT Time Calculation PT Start Time 933 PT Stop Time 956 PT Time Calculation (min) 23 min Multi-Disciplinary Problems (from Physical Therapy) Active Problems Problem: Mobility Start Date: 10/04/24 Goal Start Date Expected End Date End Date LTG - Patient will ambulate household distance with LRD 10/04/24 11/03/24 -- Goal Start Date Expected End Date End Date STG - Patient will ambulate 90 ft with LRD with min A 10/04/24 10/18/24 -- Problem: Transfers Start Date: 10/04/24 Goal Start Date Expected End Date End Date STG - Transfer from bed to chair CGA 10/04/24 10/18/24 -- Goal Start Date Expected End Date End Date STG - Patient to transfer to and from sit to supine CGA 10/04/24 10/18/24 -- Goal Start Date Expected End Date End Date STG - Patient will transfer sit to and from stand CGA 10/04/24 10/18/24 -- PAN CHARGER * Florentin Dean MD - 10/05/2024 6:40 AM CST Neurosurgery Daily Progress Note 10/05/2024 Hospital Course 10/02 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 Lost BLE motors intra-op. POC with LLE weaknessand minimal RLE movement, improving 10/03 NS bolus given in PACU. Admitted to NNICU. MAP goal relaxed to >90. 10/04 MAP goals liberalized to >80. CXR with ill-defined airway opacity in L mid/upper lung and RML c/f aspiration vs PNA. CTX and azithro started for suspected CAP. PT/OT rec rehab. Trending trops and lactate. RVP and UA neg. Subjective no complaints and pain well controlled Objective Physical Exam: Awake, regards, follows commands Oriented x3 CNGI RUE 5/5 in delt/bi/tri/we/hg LUE 5/5 in delt/bi/tri/we/hg RLE 3/5 in IP, 4-/5 q/h, 2/5 TA/gastroc, 2/5 EHL LLE 4+/5 in IP/q/h/TA/gastroc Incision dressed, drain x1 Vitals: 24hr min/max vitals: Temp Min: 36.4 ??C (97.5 ??F) Max: 37.6 ??C (99.7 ??F) Pulse Min: 50 Max: 94 Resp Min: 6 Max: 29 SpO2 Min: 88 % Max: 100 % MAP (mmHg) Min: 74 Max: 113 Intake and output: I/O last 2 completed shifts: In: 3093.4 [P.O.:550; I.V.:2523.4; IV Piggyback:20] Out: 2820 [Urine:2525; Drains:295] Medications: Scheduled Scheduled Medications Medication Dose Route Frequency acetaminophen (TYLENOL) tablet 1,000 mg 1,000 mg oral Q6H FENG azithromycin (ZITHROMAX) tablet 500 mg 500 mg oral Daily baclofen (LIORESAL) tablet 10 mg 10 mg oral BID cefTRIAXone (ROCEPHIN) 2,000 mg/20 mL in sterile water (premix) 2,000 mg 2,000 mg intravenous Q[facility]H [facility] dexAMETHasone (DECADRON) tablet 6 mg 6 mg oral Q6H [facility] docusate sodium (COLACE) capsule 100 mg 100 mg oral BID DULoxetine DR (CYMBALTA) extended release capsule 30 mg 30 mg oral BID enoxaparin (LOVENOX) syringe 30 mg 30 mg subcutaneous Daily-2100 famotidine (PEPCID) tablet 20 mg 20 mg oral Q12H FENG finasteride (PROSCAR) tablet 5 mg 5 mg oral QAM polyethylene glycol (MIRALAX) packet 17 g 17 g oral Daily senna (SENOKOT) tablet 1 tablet 1 tablet oral BID As needed PRN Medications Medication Dose Route Frequency Last Admin bisacodyL (DULCOLAX) suppository 10 mg 10 mg rectal Daily PRN Carrier Fluids for Secondary Infusion - 0.9% Sodium Chloride 30 mL intravenous PRN ondansetron (ZOFRAN) injection 4 mg 4 mg intravenous Q6H PRN oxyCODONE (ROXICODONE) tablet 5 mg 5 mg oral Q4H PRN sodium chloride 0.9% flush 0.5-20 mL 0.5-20 mL intra-catheter PRN traMADoL (ULTRAM) tablet 50 mg 50 mg oral Q8H PRN Labs: Lab Results Component Value Date SODIUM 144 10/04/2024 SODIUM 142 10/03/2024 SODIUM 143 10/03/2024 Lab Results Component Value Date GLUCOSE 168 10/04/2024 CALCIUM 8.4 (L) 10/04/2024 POTASSIUM 4.4 10/04/2024 CO2 22 10/04/2024 CHLORIDE 113 (H) 10/04/2024 BUNSER 24 10/04/2024 CREATININE 1.30 10/04/2024 Lab Results Component Value Date WBC 23.0 (H) 10/04/2024 WBC 26.3 (H) 10/03/2024 WBC 30.5 (H) 10/03/2024 HGB 10.5 (L) 10/04/2024 HGB 11.3 (L) 10/03/2024 HGB 13.0 10/03/2024 HCT 31.0 (L) 10/04/2024 HCT 33.7 (L) 10/03/2024 HCT 38.0 (L) 10/03/2024 LABPLAT 207 10/04/2024 LABPLAT 302 10/03/2024 LABPLAT 346 10/03/2024 Lab Results Component Value Date INR 1.14 10/02/2024 INR 1.02 09/13/2024 PT 12.4 10/02/2024 PT 11.0 09/13/2024 APTT 27 (L) 10/02/2024 APTT 30 09/13/2024 APTT 30 09/13/2024 No components found for: TROPONIN PT/OT assessment: PT Recommendation/Plan: Inpatient Rehab Facility OT Recommendation: Inpatient Rehab Facility Assessment/Plan Hospital Day: 4 Lili Delgado is a 74 y.o. year old male who underwent T3-5 laminectomy and decompression, arachnoidcyst wall fenestration. Plan MAP>80 Drain x1 (235/125)- continue DVT prophylaxis: lovenox Responsible team (call resident in bold with questions) Chris Dean Note created by Florentin Dean MD on 10/05/2024 at 6:40 AM. Cosigned by James Robles MD at 10/05/2024 8:15 AM DRY PAN CHARGER PAN CHARGER PAN CHARGER * Maria Isabel Unger MANAGER PUBLISHING - 10/05/2024 6:05 AM CST Neuro Critical Care Progress Note ICU Admission Dx: T3-5 laminectomy and decompression, arachnoid cyst wall fenestration, Community Acquired PNA HPI: 74 year old male patient with PMH of BPH and prior thoracic laminectomy for decompression (years ago), and additional L4-5 laminectomy and spinal cord stimulator placement in 11/2023. He has had c/o lower back pain with diffuse radiating pain and numbness tingling down the legs and feet bilaterally and arrives to [facility] for posterior lumbar-thoracic spinal fusion with instrumentation 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/thoracic decompression laminectomy for thoracic myelopathy on 10/02. Lost BLE motors intra-op. EBL 200. Received 2500 ml intra-op fluids. In PACU he had minimal movement in BLE, after MAP augmentation he has had improved strength in both legs, L>R, Arrives to NNICU on phenylephrine 1.7 mcg/kg/min. Interval Events: -- lactate sent due to high pressor requirement, 3.7>2.5 -- also sent trop for high pressor requirement, 145>132>128 -- MAP goal liberalized to >80 per NSGY, now weaned off Phenylephrine drip as of ~midnight -- for his mild hypoxemia, sent RSV/ COVID/ Influenza A&B which were all negative, started on CFTX and Azithromycin for CAP -- no acute events overnight Vitals 24hr Temp Min: 36.4 ??C (97.5 ??F) Max: 37.6 ??C (99.7 ??F) Pulse Min: 43 Max: 94 NIBP BP Min: 113/56 Max: 179/85 MAP (mmHg) Av Min: 74 Max: 113 A-line Arterial Line BP Min: 98/80 Max: 169/76 Arterial Line MAP (mmHg) Av.6 mmHg Min: 86 mmHg Max: 118 mmHg I/O: Intake/Output Summary (Last 24 hours) at 10/05/2024 0605 Last data filed at 10/05/2024 0400 Gross per 24 hour Intake 942.57 ml Output 1835 ml Net -892.43 ml UOP in past 24h: 1,600 mL Surgical drain output in past 24h: 235 mL LABS Recent Labs Lab Units 10/04/24204810/03/24223510/03/24202410/03/2445710/02/24 1601 SODIUM mmol/L 144 142 143 < > 141 POTASSIUM PLASMA mmol/L 4.4 4.4 4.1 < > 4.2 CHLORIDE mmol/L 113* 113* 113* < > 112* CO2 mmol/L 22 22 20* < > 22 ANIONGAP mmol/L 9 7 10 < > 7 GLUCOSE mg/dL 168 162 163 < > 118 POC GLUCOSE MONITOR -- -- -- < > -- BUN SERUM mg/dL 24 17 17 < > 16 CREATININE mg/dL 1.30 1.23 1.25 < > 1.30 CALCIUM mg/dL 8.4* 8.1* 8.0* < > 8.3* MAGNESIUM mg/dL -- -- -- -- 1.9 PHOSPHORUS PLASMA mg/dL -- -- -- -- 2.4 < > = values in this interval not displayed. Recent Labs Lab Units 10/04/24204810/03/24202910/03/2445710/02/24 1601 WBC K/cumm 23.0* 26.3* 30.5* 16.3* HEMATOCRIT % 31.0* 33.7* 38.0* 38.7* HEMOGLOBIN g/dL 10.5* 11.3* 13.0 12.7* PLATELETS K/cumm 207 302 346 255 APTT sec -- -- -- 27* INR -- -- -- 1.14 Recent Labs Lab Units 11/11/24 1601 ALK PHOS Units/L 64 BILIRUBIN TOTAL mg/dL 0.2 TOTAL PROTEIN g/dL 5.5* ALBUMIN g/dL 3.4* ALT Units/L 19 AST Units/L 21 NEURO IMAGING (Most recent) No new PHYSICAL EXAM: General: NAD HEENT: Mucous membranes moist, sclera anicteric Cardiac: RRR, no M/R/G Pulmonary: Even, unlabored respirations. Symmetric chest rise and fall. Lungs clear to auscultationanterior payne. Mild tachypnea, + non productive cough. Abdomen: Non-distended in appearance, bowel sounds present, soft/non-tender to palpation. No massesor HSM. Ext: No peripheral edema or digital cyanosis Skin: No rashes or lesions NEURO EXAM Mental Status Awake, alert, regards, follows commands, speech fluent, oriented x3 Cranial Nerves PERRL, EOMI, face symmetric, no dysarthria, +spont cough Motor BUE 5/5 L HF 4+, L KF 4+, L KE 5, L DF 4-, L PF 4- R HF 2, R KF 3, R KE 3, R DF 2, R PF 2 NEUROLOGICAL Meds: Tylenol 1 gm q6h Dexamethasone 6 mg q6h Baclofen 10 mg BID Cymbalta 30 mg BID PRN Oxycodone 5 mg q4h PRN Ultram 50 mg q8h # Thoracic myelopathy s/p T3-5 laminectomy and decompression, arachnoid cyst wall fenestration -- POD #3 -- follow up surgical pathology -- monitor surgical drain output -- continue dexamethasone 6 mg q6h -- neuro checks q2h -- continue MAP augmentation >80 with phenylephrine gtt - see Cards, discuss duration with NSGY -- no activity restrictions -- PT/OT # Acute pain -- continue home baclofen 10 mg BID and home cymbalta 30 mg BID -- change FENG tylenol to PRN -- PRN oxycodone 5 mg q4h -- discontinue PRN ultram 50 mg q8h, no need to have on with oxycodone plus patient says it has nothelped in the past CARDIOVASCULAR and HEME Meds: Phenylephrine gtt, weaned off at midnight EKG: NSR without ischemic changes # MAP augmentation -- MAP goal >80 per NSGY, utilizing phenylephrine gtt as needed -- currently utilizing cuff pressures -- patient refused PICC line placement -- no need for daily troponin level now that off pressors -- lactate 3.7>2.5 - continue to trend daily until normalizes # Normocytic anemia -- likely secondary to acute blood loss -- daily CBC PULMONARY Resp Min: 6 Max: 29 SpO2 Min: 88 % Max: 100 % Nasal cannula 2L CXR: No new Meds: None # Mild hypoxemia secondary to community acquired PNA -- currently on nasal cannula, wean as able -- maintain SpO2 >92% -- continue abx as below - see ID -- encourage IS, acapella -- mobilize as tolerated RENAL Meds: Finasteride 5 mg daily # BPH -- Urology consulted in ED for difficulty Zheng placement and was able to place without any resistance, Urology signed off -- holding home flomax 0.4 mg nightly while augmenting BP -- continue finasteride 5 mg daily -- maintain zheng catheter for now until able to resume Flomax No other active issues. Monitor UOP. BMP daily, CMP weekly. Replete lytes as needed per NNICU protocol. GI and ENDO Meds: Colace 100 mg BID Senna 1 tab BID Miralax 17 gm daily Famotidine 20 mg BID Diet: Regular IV fluids: IV SL Flushes: None Last BM: ENGLISH TUTOR # Nutrition -- regular diet -- encourage oral intake # At risk for constipation -- bowel reg with colace, senna, miralax -- give dulcolax suppository this evening if no BM # GI PPX -- continue pepcid BID while on steroids INFECTION RELEVANT/MOST RECENT MICRO LAB DATA: Blood cultures: None Respiratory cultures: Influenza A&B/RSV/COVID 19: Negative Urine culture: None Meds: Azithromycin 500 mg daily Ceftriaxone 2 gm q24h # Community Acquired PNA (present on admission) -- admission CXR with bilateral airspace opacities, has been requiring O2 for mild hypoxia, tachypnea with increased work of breathing on exam 10/04 -- RPP negative as above -- continue azithromycin x3 days (day 2/3), CFTX x5 days (day 2/5) -- supportive care # Leukocytosis -- likely secondary to CAP vs reactive from surgery vs steroid -- has been afebrile but on scheduled tylenol -- continue antibiotics as above -- hassan culture for T-max >/= 38.5C -- daily CBC ACCESS Lines PIV x2 Zheng Yes, placed by Urology VTE Prophylaxis Last Venous Doppler: None Prophylaxis: SCDs, Lovenox 30 mg daily CODE STATUS: Full Code [facility] Maria Isabel Unger NP Cosigned by Willy Nguyen MD at 10/06/2024 7:25 AM DRY PAN CHARGER PAN CHARGER PAN CHARGER * Nadia Moulton - 10/04/2024 2:37 PM CST Physical Therapy Physical Therapy Progress Note NOTE: This is a summary note of the cuellar components of the treatment session. For full details, review chart for all flowsheets documented on by this physical therapy clinician on this date. Vital signs documented in vital signs flowsheet. Care plan progress documented in Care Plan Activity. For questions, please review the treatment team and contact the PT or ENGLISH TUTOR currently assigned to this patient. If a physical therapy clinician is not assigned to this patient, please call [phone]. 10/04/24 4198 General Chart Reviewed Yes Session Type Evaluation PT Received On 10/04/24 Safe Environment Arm band checked;Patient found sitting in chair;Session completed bedside;Gait belt utilized for all out of bed mobility Subjective Agreeable to Therapy Family/Caregiver Present Yes () Physical Therapy-Patient Goal Pt did not state any goals at this time Precautions Precautions Fall risk Home Living Type of Home House Home Layout One level Home Access Stairs to enter without rails Entrance Stairs-Rails None Entrance Stairs-Number of Steps 2 Home Mobility Equipment-Available Wheeled walker;4-Wheeled walker Home Mobility Equipment-Currently Using Wheeled walker Prior Function Level of [place] Independent with ADLs;Independent with ambulation;Needs assistance with homemaking Lives With Spouse Receives Help From Spouse/Significant other (full time) Fall within the last 6 months Yes Fall within the last 6 months comment 1x, Pt reports picking a tissue off from ground and fell Pain Assessment Pain Assessment 0-10 Pain Score 4 Pain Location Back (Cervical) Pain Orientation Generalized Pain Interventions RN Notified Cognition Arousal/Alertness Alert Orientation Oriented X4 (person, place, time, situation) Following Commands Follows all commands and directions without difficulty Sensation Light Touch Partial deficits in the RLE;Partial deficits in the LLE (more on the left) Sensation Comments BL LE, skin intact Balance Tests Balance Tests Yes Escobedo Balance Scale 1. Sitting to Standing 0 2. Standing Unsupported 0 3. Sitting with Back Unsupported but Feet Supported on Floor or on a Stool 0 4. Standing to Sitting 0 5. Transfers 0 6. Standing Unsupported with Eyes Closed 0 7. Standing Unsupported with Feet Together 0 8. Reach Forward with Outstretched Arm While Standing 0 9. Insurance Loss Adjuster Object from Floor from a Standing Position 0 10. Turning to Look Behind Over Left and Right Shoulders While Standing 0 11. Turn [address] Altern[address] Foot on Step or Stool While Standing Unsupported 0 13. Standing Unsupported One Foot in Front 0 14. Standing on One Leg 0 Escobedo Balance Score 0 Balance Balance Yes Static Sitting Balance Static Sitting-Balance Support Bilateral upper extremity supported;Feet supported Static Sitting-Sitting Surface Chair Static Sitting-Level of Assistance Moderate assistance Static Sitting-Comment/# of Minutes Assistance to prevent posterior lean Static Standing Balance Static Standing-Balance Support No upper extremity supported Static Standing-Standing Surface Floor Static Standing-Level of Assistance Moderate assistance Static Standing-Comment/# of Minutes Assistance for balance Bed Mobility Bed Mobility Yes Bed Mobility 1 Bed Mobility From 1 Edge of bed Bed Mobility Type 1 To Bed Mobility to 1 Supine Level of Assistance 1 Moderate Assist Bed Mobility Comments 1 Assistance for leg elevation Transfers Transfer Yes Transfer 1 Transfer From 1 Sit Transfer Type 1 To and from Transfer to 1 Stand Technique 1 Sit to stand;Stand to sit Transfer Device 1 No device Transfer Level of Assistance 1 Moderate Assist (x2) Trials/Comments 1 Assistance for decreased force production, BLE blocking, and balance Transfers 2 Transfer From 2 Chair with arms Transfer Type 2 To Transfer to 2 Bed Technique 2 Stand pivot Transfer Device 2 No device Transfer Level of Assistance 2 Moderate Assist (x2) Trials/Comments 2 Assistance for balance, BL knee blocking and decreased force production Ambulation Ambulation No Stairs Stairs No RUE Assessment RUE Assessment WFL LUE Assessment LUE Assessment WFL RLE Assessment RLE Assessment X RLE Comments limited AROM due to tone, strength 3/5 LLE Assessment LLE Assessment X LLE Comments Full AROM strength 3/5 PT Treatment/Exercise Comments PT Treatment/Exercise Comments Seated marches 10x, heel slides on RLE 10x Basic Mobility - 6 Click How much difficulty does the patient have: Turning over in bed 2 How much difficulty does the patient currently have: Sitting down and standing up from a chair witharms? 2 How much difficulty does the patient have: Moving from lying on back to sitting on the side of the bed? 2 How much difficulty does the patient have: Moving to and from a bed to a chair including wheelchair? 2 How much help does the patient currently need: Walk in hospital room? 1 How much help from another person does the patient currently need: Climbing 3-5 steps with a railing? 1 Total 6 Click Score (range 6-24) 10 Score Interpretation 28.13 Assessment Problem List Reduced mobility;Gait deviations;Decreased strength;Decreased range of motion;Decreased endurance;Impaired balance;Decreased active flexion Problem List Comments PT Diagnosis: T3-5 laminectomy and decompression, arachnoid cyst wall fenestration, results in above listed activity deficits and impairments which prevent full participation inhome and community mobility Plan Plan Plan of care initiated;If this is the last note, consider this the discharge summary Recommendation/Plan PT Recommendation/Plan Inpatient Rehab Facility Patient at high risk for Falls;Readmission;Injury due to decreased ability to care for self;Injury due to reduced functional status;Injury due to balance deficits Recommend Inpatient Rehab/Acute Rehab due to Ability to actively participate in intensive therapy 3hours/day, 5 days/week or 900 minutes per week;Highly motivated to participate in therapy;Not at baseline due to impaired ability to complete ADLs;Impaired ability to complete functional mobility;Requires greater than 25% physical assistance with most mobility tasks;Requires skilled therapy interventions to address neurological deficits PT Frequency during current admission 3-5x/wk Treatment/Interventions during current admission Balance Training;Bed mobility;Functional activity;Gait training;Neuromuscular re-education;Stair training;Strengthening;Therapeutic activity;Therapeutic exercise;Transfer training PT - Next Appointment 10/06/24 PT Evaluation Complete Yes PT Time Calculation PT Start Time 1437 PT Stop Time 1517 PT Time Calculation (min) 40 min Multi-Disciplinary Problems (from Physical Therapy) Active Problems Problem: Mobility Start Date: 10/04/24 Goal Start Date Expected End Date End Date LTG - Patient will ambulate household distance with LRD 10/04/24 11/03/24 -- Goal Start Date Expected End Date End Date STG - Patient will ambulate 90 ft with LRD with min A 10/04/24 10/18/24 -- Problem: Transfers Start Date: 10/04/24 Goal Start Date Expected End Date End Date STG - Transfer from bed to chair CGA 10/04/24 10/18/24 -- Goal Start Date Expected End Date End Date STG - Patient to transfer to and from sit to supine CGA 10/04/24 10/18/24 -- Goal Start Date Expected End Date End Date STG - Patient will transfer sit to and from stand CGA 10/04/24 10/18/24 -- Cosigned by Arin Noriega, PT at 10/04/2024 4:26 PM DRY PAN CHARGER PAN CHARGER PAN CHARGER * Taty Quezada, OT - 10/04/2024 11:03 AM CST Occupational Therapy Occupational Therapy Evaluation Note NOTE: This is a summary note of the cuellar components of the evaluation session. For full details, review chart for all flowsheets documented on by this occupational therapy clinician on this date. Vital signs are documented in vital signs flowsheet. For questions, please review the treatment team and contact the occupational therapist currently assigned to this patient. If an occupational therapist is not assigned to this patient, please call [phone]. 10/04/24 2454 General Chart Reviewed Yes Session Type Evaluation OT Received On 10/04/24 Safe Environment Arm band checked;Patient found in supine;Gait belt utilized for all out of bed mobility Subjective Agreeable to Therapy Family/Caregiver Present No Occupational Therapy-Patient Goal pt was agreeable to OT suggested short term goals Precautions Precautions Fall risk Home Living Type of Home House Home Layout Able to live on main level with bedroom/bathroom Bathroom Shower/Tub Walk-in shower with threshold Bathroom Equipment Built-in shower seat;Grab bars in shower/tub Home Mobility Equipment-Available Wheeled walker;4-Wheeled walker Home Mobility Equipment-Currently Using Wheeled walker Prior Function Level of [place] Independent with ADLs;Independent with ambulation;Needs assistance with homemaking (Indp with ADLs with ww except assist for lower body dressing) Lives With Spouse Receives Help From Spouse/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 Pt reports he bent over to pick a tissue up off theground and next thing I knew, I was on the ground. ADL ADLS (WDL) X Grooming Grooming: Where assessed Chair Grooming: Level of assistance Maximum Assist Grooming: Assistance with Reaching all areas of head/face (min for task, total for balance) LE Dressing LE Dressing: Where assessed Edge of bed LE Dressing: Level of assistance Dependent Toileting Toileting: Where assessed (edge of bed) Toileting: Level of assistance Maximum Assist Toileting: Assistance with Clothing management down;Clothing management up;Perineal hygiene;Anterior;Posterior (task simulated; 1/4 (able to manipulate wipes) for task, max for standing balance) Toilet Transfers Toilet Transfers Comments NT 2/2 safety concern. Pain Assessment Pain Assessment 0-10 Pain Score 3 Pain Location Back (Cervical) Pain Interventions Repositioned Cognition Arousal/Alertness Alert;Appropriate responses to stimuli Attention Span Controlled environment;Difficulty dividing attention Memory (recalls 4/5 items after 2 minute delay) Orientation Oriented X4 (person, place, time, situation) Following Commands Follows all commands and directions without difficulty Safety Judgment Good awareness of safety precautions Compliance/Behavior Easy to engage Short Blessed Test What year is it now? 0 What month is it now? 0 Repeat this name and address after me Jeffrey Adams [address] [place] [address] Without looking at the clock, tell me what time it is 3 Count aloud backwards from 20-1 0 Say the months of the year backwards in reverse order 0 Repeat the name and address I asked you to remember 2 Short Blessed Total Score 5 Sensation Light Touch WFL (BUE) Coordination Serial Opposition (delayed in BUEs) Hand Preference Hand Preference Right Hand Function Gross Grasp (4/5 BUE) Tinetti Sitting Balance 0 Arises 0 Attempts to Arise 0 Immediate Standing Balance (First 5 Seconds) 0 Standing Balance 0 Nudged 0 Eyes Closed 0 Turned 360 Degrees: Steadiness 0 Turned 360 Degrees: Continuity of Steps 0 Sitting Down 0 Balance Score 0 Static Sitting Balance Static Sitting-Balance Support Unilateral upper extremity supported Static Sitting-Sitting Surface Bed Static Sitting-Level of Assistance Moderate assistance (posterior lean) Static Standing Balance Static Standing-Balance Support Unilateral upper extremity supported Static Standing-Level of Assistance Moderate assistance Bed Mobility 1 Bed Mobility From 1 Supine Bed Mobility Type 1 To Bed Mobility to 1 Short sit;Edge of bed Level of Assistance 1 Maximum Assist Bed Mobility Comments 1 A to roll in sidelying, maneuver BLEs, elevate trunk, balance Transfer 1 Transfer From 1 Sit Transfer Type 1 To and from Transfer to 1 Stand Technique 1 Stand to sit;Sit to stand Transfer Device 1 Hand held assist Transfer Level of Assistance 1 Maximum Assist (A of 2) Trials/Comments 1 A for force production, balance, controlled descent, blocking RLE Transfers 2 Trials/Comments 2 pt was transferred from bed to recliner with mechanical carleen lift with assist from OT and RN RUE Assessment RUE Assessment WFL LUE Assessment LUE Assessment WFL (except shoulder flexion, limited ~90 degrees) Daily Activity - 6 Clicks Putting on and taking off regular lower body clothing 1 Bathing 2 Toileting 1 Putting on and taking off upper body clothing 2 Personal Grooming 2 Eating Meals 3 Total Score (range 6-24) 11 Score Interpretation 29.04 Safe Environment End of Therapy Session Safe Environment End of Therapy Session Patient left in recliner;Chair alarm in place and activated;RN notified;Call light within reach;Overbed table within reach Assessment Problem List Decreased upper extremity strength;Decreased endurance;Decreased cognition;Decreased balance;Decreased functional mobility;Decreased ADL independence;Decreased IADL independence;Decreased gross motor control;Decreased UE function;Decreased trunk control for functional activities;Abnormal tone Plan Plan If this is the last note, consider this the discharge summary;Plan of care initiated Recommendation/Plan OT Recommendation Inpatient Rehab Facility Patient at high risk for Falls;Readmission;Injury due to decreased ability to care for self;Injury due to reduced functional status;Injury at home as patient has not returned to prior level of function;Injury due to balance deficits;Developing impaired skin integrity;Prolonged dependence for self care tasks Recommend Inpatient Rehab/Acute Rehab due to Ability to actively participate in intensive therapy 3hours/day, 5 days/week or 900 minutes per week;Highly motivated to participate in therapy;Not at baseline due to impaired ability to complete ADLs;Impaired ability to complete functional mobility;Likely to return to the community at discharge with support system in place;Requires greater than 25% physical assistance with most mobility tasks;Requires greater than 25% physical assistance with most ADL tasks;Requires multiple therapy disciplines to address functional deficits;Requires skilled therapy interventions to address neurological deficits OT Frequency during current admission 5-7x/wk Treatment/Interventions during current admission ADL/IADL retraining;Balance Training;Bed mobility;Compensatory technique education;Endurance training;Equipment eval/education;Functional activity;Functional mobility training;Functional transfer training;Neuromuscular re- education;Parent/caregiver training and education;Positioning;Sensorimotor skills;Strengthening;Therapeutic activity;Therapeuticexercise;Transfer training;Upper extremity motor function/functional skills OT - Next Appointment 10/05/24 OT Evaluation Complete Yes OT Time Calculation OT Start Time 1103 OT Stop Time 1156 OT Time Calculation (min) 53 min Multi-Disciplinary Problems (from Occupational Therapy) Active Problems Problem: Grooming Start Date: 10/04/24 Goal Start Date Expected End Date End Date STG - Patient will complete grooming with mod A 10/04/24 10/11/24 -- Problem: Transfers Start Date: 10/04/24 Goal Start Date Expected End Date End Date STG - Patient will perform toilet transfer with mod A to [facility] 10/04/24 10/11/24 -- Problem: OT Misc Start Date: 10/04/24 Goal Start Date Expected End Date End Date OT LTG - Pt will complete Adls with modified independence 10/04/24 12/01/24 -- Problem: Toileting Start Date: 10/04/24 Goal Start Date Expected End Date End Date STG - Patient will complete toileting tasks with mod A 10/04/24 10/11/24 -- PAN CHARGER * Keri Ramon MD - 10/04/2024 8:28 AM CST Critical care note I have seen and examined this patient on the day of service. I have reviewed and confirmed the history, vitals, medications, laboratory and radiographic data with the ICU team. I have reviewed and discussed my treatment plan with the ICU team and other medical/healthcare economics consultant staff as documented in the note below. 74M with h/o BPH, thoracic & lumbar spine surgery, spinal stimulator here for T3-5 laminectomy with decompression and arachnoid cyst fenestration. Exam: AOx3 5/5 BUE L HF 4+ L KF 4+ L KE 5 L DF 4- L PF 4- R HF 2 R KF 3 R KE 3 R DF 2 R PF 2 Mild tachypnea, mild labored breathing, CTAB RRR Assessment & Plan: #Thoracic myelopathy / spinal compression - patient underwent spine surgery, we are augmenting BP to MAP>90 with Phenylephrine. Steroids per Neurosurgery. Will discuss duration of MAP augmentationwith Neurosurgery. #Mild hypoxemia secondary to CAP - start Ceftriaxone, Azithromycin. Promote IS q1, OOBTC, wean supplemental oxygen for goal SaO2> 92%. Check RVP. #BPH - urology was consulted for difficult to place zheng and were able to place. Finasteride continued, Flomax held. Critical care was necessary to treat or prevent imminent or life-threatening deterioration due to thoracic myelopathy, spinal compression. Critical Care Time: I have spent 33 minutes in full attendance with this critically ill patient making frequent reassessments and decisions regarding this patient's complex medical care. Critical care time was exclusive of separately billable procedures, treating other patients and teaching time. Keri Ramon M.D. Attending Physician, Neurocritical Bench CarpenterRubber Block Layer, Department of Neurology PAN CHARGER * Florentin Dean MD - 10/04/2024 6:40 AM CST Neurosurgery Daily Progress Note 10/04/2024 Hospital Course 10/02 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 Lost BLE motors intra-op. POC with LLE weaknessand minimal RLE movement, improving 11/12 NS bolus given in PACU. Admitted to NNICU. MAP goal relaxed to >90. Subjective no complaints and pain well controlled Objective Physical Exam: Awake, regards, follows commands Oriented x3 CNGI RUE 5/5 in delt/bi/tri/we/hg LUE 5/5 in delt/bi/tri/we/hg RLE 3/5 in IP, 4/5 q, 2/5 TA/gastroc, 2/5 EHL LLE 4+/5 in IP/q/h/TA/gastroc Incision dressed, drain x1 Vitals: 24hr min/max vitals: Temp Min: 36.3 ??C (97.3 ??F) Max: 38 ??C (100.4 ??F) Pulse Min: 43 Max: 110 Resp Min: 6 Max: 32 SpO2 Min: 89 % Max: 100 % MAP (mmHg) Min: 78 Max: 114 Intake and output: I/O last 2 completed shifts: In: 4173.6 [I.V.:2588.6; IV Piggyback:1585] Out: 4160 [Urine:3930; Drains:230] Medications: Scheduled Scheduled Medications Medication Dose Route Frequency acetaminophen (TYLENOL) tablet 1,000 mg 1,000 mg oral Q6H FENG baclofen (LIORESAL) tablet 10 mg 10 mg oral BID dexAMETHasone (DECADRON) tablet 6 mg 6 mg oral Q6H FENG Or dexAMETHasone (DECADRON) 4 mg/mL injection 6 mg 6 mg intravenous Q6H FENG docusate sodium (COLACE) capsule 100 mg 100 mg oral BID DULoxetine DR (CYMBALTA) extended release capsule 30 mg 30 mg oral BID enoxaparin (LOVENOX) syringe 30 mg 30 mg subcutaneous Daily-2100 famotidine (PEPCID) tablet 20 mg 20 mg oral Q12H FENG Or famotidine (PEPCID) injection 20 mg 20 mg intravenous Q12H FENG [Held by Provider] finasteride (PROSCAR) tablet 5 mg 5 mg oral QAM lidocaine (PF) (XYLOCAINE) 10 mg/mL (1 %) preservative free injection 10-20 mg 1-2 mL subcutaneous Once polyethylene glycol (MIRALAX) packet 17 g 17 g oral Daily senna (SENOKOT) tablet 1 tablet 1 tablet oral BID sodium chloride 0.9% flush 0.5-20 mL 0.5-20 mL intra-catheter Q8H FENG sodium chloride 0.9% flush 0.5-20 mL 0.5-20 mL intra-catheter Q8H FENG sodium chloride 0.9% flush 5-10 mL 5-10 mL intra-catheter Q12H FENG [Held by Provider] tamsulosin (FLOMAX) extended release capsule 0.4 mg 0.4 mg oral Nightly As needed PRN Medications Medication Dose Route Frequency Last Admin bisacodyL (DULCOLAX) suppository 10 mg 10 mg rectal Daily PRN Carrier Fluids for Secondary Infusion - 0.9% Sodium Chloride 30 mL intravenous PRN Carrier Fluids for Secondary Infusion - 0.9% Sodium Chloride 30 mL intravenous PRN ondansetron (ZOFRAN) injection 4 mg 4 mg intravenous Q6H PRN oxyCODONE (ROXICODONE) tablet 5 mg 5 mg oral Q4H PRN sodium chloride 0.9% flush 0.5-20 mL 0.5-20 mL intra-catheter PRN sodium chloride 0.9% flush 0.5-20 mL 0.5-20 mL intra-catheter PRN sodium chloride 0.9% flush 5-20 mL 5-20 mL intra-catheter PRN traMADoL (ULTRAM) tablet 50 mg 50 mg oral Q8H PRN Labs: Lab Results Component Value Date SODIUM 142 10/03/2024 SODIUM 143 10/03/2024 SODIUM 143 10/03/2024 Lab Results Component Value Date GLUCOSE 162 10/03/2024 CALCIUM 8.1 (L) 10/03/2024 POTASSIUM 4.4 10/03/2024 CO2 22 10/03/2024 CHLORIDE 113 (H) 10/03/2024 BUNSER 17 10/03/2024 CREATININE 1.23 10/03/2024 Lab Results Component Value Date WBC 26.3 (H) 10/03/2024 WBC 30.5 (H) 10/03/2024 WBC 16.3 (H) 10/02/2024 HGB 11.3 (L) 10/03/2024 HGB 13.0 10/03/2024 HGB 12.7 (L) 10/02/2024 HCT 33.7 (L) 10/03/2024 HCT 38.0 (L) 10/03/2024 HCT 38.7 (L) 10/02/2024 LABPLAT 302 10/03/2024 LABPLAT 346 10/03/2024 LABPLAT 255 10/02/2024 Lab Results Component Value Date INR 1.14 10/02/2024 INR 1.02 09/13/2024 PT 12.4 10/02/2024 PT 11.0 09/13/2024 APTT 27 (L) 10/02/2024 APTT 30 09/13/2024 APTT 30 09/13/2024 No components found for: TROPONIN PT/OT assessment: Assessment/Plan Hospital Day: 3 Lili Delgado is a 74 y.o. year old male who underwent T3-5 laminectomy and decompression, arachnoidcyst wall fenestration. Plan Re-examine later today PICC for access MAP>90, on lucio Drain x1 (270/160)- continue DVT prophylaxis: lovenox Responsible team (call resident in bold with questions) Chris Dean Note created by Florentin Dean MD on 10/04/2024 at 6:40 AM. Cosigned by James Robles MD at 10/04/2024 9:00 PM DRY PAN CHARGER PAN CHARGER PAN CHARGER * Tamanna Porras NP - 10/04/2024 6:16 AM CST Neuro Critical Care Progress Note ICU Admission Dx: T3-5 laminectomy and decompression, arachnoid cyst wall fenestration, Community Acquired PNA HPI: 74 year old male patient with PMH of BPH and prior thoracic laminectomy for decompression (years ago), and additional L4-5 laminectomy and spinal cord stimulator placement in 11/2023. He has had c/o lower back pain with diffuse radiating pain and numbness tingling down the legs and feet bilaterally and arrives to [facility] for posterior lumbar-thoracic spinal fusion with instrumentation 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/thoracic decompression laminectomy for thoracic myelopathy on 10/02. Lost BLE motors intra-op. EBL 200. Received 2500 ml intra-op fluids. In PACU he had minimal movement in BLE, after MAP augmentation he has had improved strength in both legs, L>R, Arrives to NNICU on phenylephrine 1.7 mcg/kg/min. Interval Events: -- remains on Phenylephrine drip at 0.7 mcg/kg for MAP goal > 90 (initially augmenting MAP to 110 -120, but relaxed to > 90 at 1600 yesterday per NSGY) -- PICC team came to place PICC but patient refused, pressors infusing via peripheral lines -- no acute events overnight Vitals 24hr Temp Min: 36.3 ??C (97.3 ??F) Max: 38 ??C (100.4 ??F) Pulse Min: 52 Max: 110 NIBP BP Min: 115/61 Max: 177/82 MAP (mmHg) Av.2 Min: 78 Max: 114 A-line Arterial Line BP Min: 82/61 Max: 180/81 Arterial Line MAP (mmHg) Av.8 mmHg Min: 51 mmHg Max: 255 mmHg I/O: Intake/Output Summary (Last 24 hours) at 10/04/2024 0616 Last data filed at 10/04/2024 0400 Gross per 24 hour Intake 4203.52 ml Output 3495 ml Net 708.52 ml 24 hour urine output: 3425 cc Surgical Drain Output: 295 cc LABS Recent Labs Lab Units 10/03/24 2236 10/03/24 2025 10/03/24 1407 10/03/24 0458 10/02/24 1601 SODIUM mmol/L 142 143 -- 143 141 POTASSIUM PLASMA mmol/L 4.4 4.1 -- 4.7 4.2 CHLORIDE mmol/L 113* 113* -- 111* 112* CO2 mmol/L 22 20* -- 22 22 ANIONGAP mmol/L 7 10 -- 10 7 GLUCOSE mg/dL 162 163 -- 146 118 POC GLUCOSE MONITOR mg/dL -- -- 128 -- -- BUN SERUM mg/dL 17 17 -- 14 16 CREATININE mg/dL 1.23 1.25 -- 1.29 1.30 CALCIUM mg/dL 8.1* 8.0* -- 8.3* 8.3* MAGNESIUM mg/dL -- -- -- -- 1.9 PHOSPHORUS PLASMA mg/dL -- -- -- -- 2.4 Corrected Calcium: 8.6 Recent Labs Lab Units 10/03/24 2030 10/03/24 0458 10/02/24 1601 WBC K/cumm 26.3* 30.5* 16.3* HEMATOCRIT % 33.7* 38.0* 38.7* HEMOGLOBIN g/dL 11.3* 13.0 12.7* PLATELETS K/cumm 302 346 255 APTT sec -- -- 27* INR -- -- 1.14 Recent Labs Lab Units 10/02/24 1601 ALK PHOS Units/L 64 BILIRUBIN TOTAL mg/dL 0.2 TOTAL PROTEIN g/dL 5.5* ALBUMIN g/dL 3.4* ALT Units/L 19 AST Units/L 21 IMAGING (Most recent) NEURO IMAGING: no new PHYSICAL EXAM: General: NAD HEENT: Mucous membranes moist, sclera anicteric Cardiac: RRR, no M/R/G Pulmonary: Even, unlabored respirations. Symmetric chest rise and fall. Lungs clear to auscultationanterior payne. Mild tachypnea, + non productive cough. Abdomen: Non-distended in appearance, bowel sounds present, soft/non-tender to palpation. No massesor HSM. Ext: No peripheral edema or digital cyanosis Skin: No rashes or lesions NEURO EXAM Mental Status Awake and Alert, regards, follows commands, speech fluent, oriented x 3 Cranial Nerves PERRL, EOMI, Face symmetric, no dysarthria, + spont cough Motor BUE 5/5 L HF 4+, L KF 4+, L KE 5, L DF 4-, L PF 4- R HF 2, R KF 3, R KE 3, R DF 2, R PF 2 NEUROLOGICAL Meds: Tylenol 1g q6h - FENG Dexamethasone 6 mg Q6H Baclofen 10 mg BID Cymbalta 30 mg BID PRN oxycodone 5 mg q4h PRN ultram 50 mg q8h # Thoracic myelopathy s/p T3-5 laminectomy and decompression, arachnoid cyst wall fenestration -- POD # 2 -- liberalize neuro checks to Q2H -- dex 6 mg q6h per NSGY -- monitor drain output -- MAP augmentation > 90 with phenylephrine gtt - see Cards, discuss duration with NSGY -- no activity restrictions -- follow up surgical pathology -- PT/OT # Acute pain -- tylenol 1g q6h - FENG, continue home baclofen 10 mg BID and cymbalta 30 mg BID -- PRN oxycodone 5 mg q4h, home PRN ultram 50 mg q8h CARDIOVASCULAR and HEME Meds: Phenylephrine gtt @ 0.7 mcg/kg/min EKG: NSR without ischemic changes # MAP augmentation -- MAP > 90 per NSGY, utilizing phenylephrine gtt -- patient refused PICC line placement -- send troponin now and follow daily while augmenting BP -- send lactate given pressor requirements have been high (concern for sepsis secondary to PNA) # Normocytic Anemia; HGB 11.3 -- likely secondary to acute blood loss -- monitor CBC daily PULMONARY Resp Min: 6 Max: 32 SpO2 Min: 89 % Max: 100 % , on 2 L via NC CXR 10/02 IMPRESSION: No priors available for comparison. Spinal stimulator overlies the midthoracic spine. Ill-defined airspace opacity predominantly in the left mid and upper lung as well as right midlung which may be due to aspiration and/or pneumonia. No pleural effusion or pneumothorax. Cardiom ediastinal silhouette is normal accounting for rotation. Meds: None # Mild Hypoxemia secondary to Community Acquired PNA -- see ID -- send RVP and PNA PCR If produces sputum -- start Ceftriaxone and Azithromycin - See ID -- continue IS, mobilize as tolerated -- wean O2 to maintain sats > 92% RENAL Meds: Finasteride 5 mg daily # BPH -- home meds: finasteride 5 mg daily and tamsulosin 0.4 mg nightly -- urology consulted for difficulty placing zheng in OR, was able to place without any resistance. Urology signed off. -- holding tamsulosin while augmenting MAP -- resumed finasteride today -- maintain zheng catheter for now # Hypomagnesemia -- repleted per protocol -- follow up on next level Follow up ical in am. GI and ENDO Meds: Colace 100 mg BID Senna 1 tab BID Miralax 17g daily Famotidine 20 mg BID Diet: Dietary Orders (From admission, onward) Start Ordered 10/02/241933 Adult Diet Regular Diet effective now Question: ([facility]) Diet type Answer: Regular 10/02/241932 IV fluids: NS @ 10 ml/hr carrier Flushes: n/a Last BM: ENGLISH [employer]OR # Nutrition -- regular diet -- bowel reg with colace, senna, miralax # GI PPX -- pepcid BID while on pressors INFECTION RELEVANT/MOST RECENT MICRO LAB DATA: Blood cultures: none Respiratory cultures: none Urinalysis/Urine culture: none Meds: None # Community Acquired PNA (present on admission) -- admission CXR with airspace opacities bilaterally, has been requiring O2 for mild hypoxia, tachypnea with increased work of breathing on exam today -- follow up with RVP and tracheal aspirate if produces sputum -- start Azithromycin 500 mg daily x 3 days and Ceftriaxone 2 grams daily -- supportive care # Leukocytosis; WBC 26.3 -- likely secondary to CAP, versus reactive from surgery and steroids, has been afebrile, is on scheduled tylenol -- starting antibiotics as above -- follow daily CBC ACCESS Lines PIV x 2 R radial a-line (10/02) - keep while augmenting BP Zheng Yes (10/02) placed by urology VTE Prophylaxis Last Venous Doppler: n/a Prophylaxis: SCDs, SQ lovenox 30 mg daily CODE STATUS: Full Code Disposition: NNICU Tamanna Porras NP Cosigned by Keri Ramon MD at 10/04/2024 3:53 PM DRY PAN CHARGER PAN CHARGER PAN CHARGER * Wild Perez MD - 10/03/2024 7:42 AM CST Neurosurgery Daily Progress Note 10/03/2024 Hospital Course 10/02 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 Lost BLE motors intra-op. POC with LLE weaknessand minimal RLE movement, improving Subjective no complaints and pain well controlled Objective Physical Exam: Awake, regards, follows commands Oriented x3 PERRL, EOMI, FS, TML RUE 5/5 in delt/bi/tri/we/hg LUE 5/5 in delt/bi/tri/we/hg RLE 1/5 in IP, 4-/5 q/h, 2/5 TA/gastroc, 2/5 EHL LLE 4+/5 in IP/q/h/TA/gastroc Incision dressed, drain x1 Vitals: 24hr min/max vitals: Temp Min: 36.2 ??C (97.2 ??F) Max: 36.3 ??C (97.3 ??F) Pulse Min: 42 Max: 79 Resp Min: 8 Max: 30 SpO2 Min: 93 % Max: 100 % MAP (mmHg) Min: 92 Max: 120 Intake and output: I/O last 2 completed shifts: In: 4888 [I.V.:4353; IV Piggyback:535] Out: 3760 [Urine:3440; Drains:120; Blood:200] Medications: Scheduled Scheduled Medications Medication Dose Route Frequency acetaminophen (TYLENOL) tablet 1,000 mg 1,000 mg oral Q6H FENG baclofen (LIORESAL) tablet 10 mg 10 mg oral BID dexAMETHasone (DECADRON) tablet 6 mg 6 mg oral Q6H FENG Or dexAMETHasone (DECADRON) 0.1 mg/mL oral liquid 6 mg 6 mg feeding tube Q6H FENG Or dexAMETHasone (DECADRON) 4 mg/mL injection 6 mg 6 mg intravenous Q6H FENG docusate sodium (COLACE) capsule 100 mg 100 mg oral BID Or docusate (COLACE) 10 mg/mL oral liquid 100 mg 100 mg feeding tube BID DULoxetine DR (CYMBALTA) extended release capsule 30 mg 30 mg oral BID enoxaparin (LOVENOX) syringe 30 mg 30 mg subcutaneous Daily-2100 famotidine (PEPCID) tablet 20 mg 20 mg oral Q12H FENG Or famotidine (PEPCID) tablet 20 mg 20 mg feeding tube Q12H FENG Or famotidine (PEPCID) injection 20 mg 20 mg intravenous Q12H FENG finasteride (PROSCAR) tablet 5 mg 5 mg oral QAM polyethylene glycol (MIRALAX) packet 17 g 17 g oral Daily senna (SENOKOT) tablet 1 tablet 1 tablet oral BID Or senna 1.76 mg/mL syrup 8.8 mg 8.8 mg feeding tube BID sodium chloride 0.9% flush 0.5-20 mL 0.5-20 mL intra-catheter Q8H FENG sodium chloride 0.9% flush 0.5-20 mL 0.5-20 mL intra-catheter Q8H FENG tamsulosin (FLOMAX) extended release capsule 0.4 mg 0.4 mg oral Nightly As needed PRN Medications Medication Dose Route Frequency Last Admin acetaminophen (TYLENOL) tablet 650 mg 650 mg oral Q4H PRN Or acetaminophen (TYLENOL) 32 mg/mL oral liquid 650 mg 650 mg feeding tube Q4H PRN Or acetaminophen (TYLENOL) suppository 650 mg 650 mg rectal Q4H PRN bisacodyL (DULCOLAX) suppository 10 mg 10 mg rectal Daily PRN Carrier Fluids for Secondary Infusion - 0.9% Sodium Chloride 30 mL intravenous PRN Carrier Fluids for Secondary Infusion - 0.9% Sodium Chloride 30 mL intravenous PRN HYDROmorphone (DILAUDID) injection 0.2 mg 0.2 mg intravenous Q10 Min PRN 0.2 mg at 10/02/241658 HYDROmorphone (DILAUDID) injection 0.4 mg 0.4 mg intravenous Q10 Min PRN naloxone (NARCAN) 0.4 mg/mL injection 0.04-0.4 mg 0.04-0.4 mg intravenous Once PRN ondansetron (ZOFRAN) injection 4 mg 4 mg intravenous Once PRN ondansetron (ZOFRAN) injection 4 mg 4 mg intravenous Q6H PRN oxyCODONE (ROXICODONE) tablet 5 mg 5 mg oral Q4H PRN sodium chloride 0.9% flush 0.5-20 mL 0.5-20 mL intra-catheter PRN sodium chloride 0.9% flush 0.5-20 mL 0.5-20 mL intra-catheter PRN traMADoL (ULTRAM) tablet 50 mg 50 mg oral Q8H PRN Labs: Lab Results Component Value Date SODIUM 143 10/03/2024 SODIUM 141 10/02/2024 SODIUM 144 09/13/2024 Lab Results Component Value Date GLUCOSE 146 10/03/2024 CALCIUM 8.3 (L) 10/03/2024 POTASSIUM 4.7 10/03/2024 CO2 22 10/03/2024 CHLORIDE 111 (H) 10/03/2024 BUNSER 14 10/03/2024 CREATININE 1.29 10/03/2024 Lab Results Component Value Date WBC 30.5 (H) 10/03/2024 WBC 16.3 (H) 10/02/2024 WBC 10.4 (H) 09/13/2024 HGB 13.0 10/03/2024 HGB 12.7 (L) 10/02/2024 HGB 12.4 (L) 10/02/2024 HCT 38.0 (L) 10/03/2024 HCT 38.7 (L) 10/02/2024 HCT 37.0 (L) 10/02/2024 LABPLAT 346 10/03/2024 LABPLAT 255 10/02/2024 LABPLAT 254 09/13/2024 Lab Results Component Value Date INR 1.14 10/02/2024 INR 1.02 09/13/2024 PT 12.4 10/02/2024 PT 11.0 09/13/2024 APTT 27 (L) 10/02/2024 APTT 30 09/13/2024 APTT 30 09/13/2024 No components found for: TROPONIN PT/OT assessment: Assessment/Plan Hospital Day: 2 Lili Delgado is a 74 y.o. year old male who underwent T3-5 laminectomy and decompression, arachnoidcyst wall fenestration. Plan - Dex 6q6 - MAP>110, on lucio - Drain x1 (80/80), keep today Admit ICU when bed available DVT prophylaxis: lovenox Responsible team (call resident in bold with questions) hCris Hwang Dean Note created by Wild Perez MD on 10/03/2024 at 7:42 AM. Cosigned by James Robles MD at 10/03/2024 8:15 AM DRY PAN CHARGER PAN CHARGER PAN CHARGER Associated attestation - James Robles MD - 10/03/2024 8:15 AM DRY PAN CHARGER I have seen and examined the patient on 10/03/24. I agree with the findings and plan of care with the following modifications: .. Exam improved LLE: 4+ on HF/HE/KE/KF/DF/PF RLE: 2 HF, 4+HE, 4 KE, 4 KF, 2 DF, 4 PF Patchy but full sensation throughout BLE * Wild Perez MD - 10/02/2024 6:50 PM CST Neurosurgery Post Op Check Note Surgeon: Dr. Robles Procedure: T3-5 laminectomy and decompression, arachnoid cyst wall fenestration. Exam: Awake, regards, follows commands Oriented x3 PERRL, EOMI, FS, TML RUE 5/5 in delt/bi/tri/we/hg LUE 5/5 in delt/bi/tri/we/hg RLE 0/5 in IP/q/h/TA/gastroc, 1/5 EHL LLE 3/5 in IP, 0/5 q, 2/5 h, 4+/5 TA/gastroc Incision dressed, drain x1 Plan: [place] [address] NNICU MAP>110 Dex 6q6 Diet: Advance as tolerated Antibiotics: Ancef & Vancomycin x 24hrs Activity Restrictions: No activity restrictions Imaging required: None If there are any issues or questions, please page Wild Perez MD at [phone] Wild Perez MD PAN CHARGER documented in this encounter H&P Notes * Eliz Chung NP - 10/03/2024 1:48 PM CST Neuro Critical Care Admission H&P CC: T3-5 laminectomy and decompression, arachnoid cyst wall fenestration HPI: This is a 74 year old male patient with PMH of BPH and prior thoracic laminectomy for decompression (years ago), and additional L4-5 laminectomy and spinal cord stimulator placement in 11/2023. He has had c/o lower back pain with diffuse radiation pain and numbness tingling down the legs and feet bilaterally and arrives to [facility] for posterior lumbar-thoracic spinal fusion with instrumentation 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/thoracic decompression laminectomy for thoracic myelopathy on 10/02. Lost BLE motors intra-op. EBL 200. Received 2500 ml intra-op fluids. In PACUhe had minimal movement in BLE, after MAP augmentation he has had improved strength in both legs, L>R, Arrives to NNICU on phenylephrine 1.7 mcg/kg/min, remainder of vitals are stable. Patient is alert and oriented. No past medical history on file. Past Surgical History: Procedure Laterality Date LUMBAR SPINE SURGERY 2020 L4/L5 SPINAL CORD STIMULATOR IMPLANT 2023 SPINE SURGERY 2011 TUMOR REMOVAL 2020 bladder tumor excision Social History Tobacco Use Smoking status: Never Passive exposure: Never Smokeless tobacco: Never Substance and Sexual Activity Drug use: Never Sexual activity: Defer Alcohol Use: Not At Risk (10/02/2024) AUDIT-C Frequency of Alcohol Consumption: Never Average Number of Drinks: Patient does not drink Frequency of Binge Drinking: Never No family history on file. Allergies Allergen Reactions Sulfa Unknown Childhood reaction - unknown what reaction occurred Medications Prior to Admission Medication Sig Dispense Refill Last Dose/Taking baclofen (LIORESAL) 10 mg tablet Take 1 tablet (10 mg total) by mouth 2 (two) times a day 10/01/[address] (CYMBALTA) 30 mg capsule Take 1 capsule (30 mg total) by mouth 2 (two) times a day 10/01/2024 finasteride (PROSCAR) 5 mg tablet Take 1 tablet (5 mg total) by mouth every morning 10/01/2024 mupirocin (BACTROBAN) 2 % ointment Apply to each nostril 2 (two) times a day Apply pea size amount into each nostril twice a day for 5 days prior to surgery. 22 g 0 10/01/2024 Saccharomyces boulardii (Florastor) 250 mg capsule Take 1 capsule (250 mg total) by mouth every morning 10/01/2024 tamsulosin (FLOMAX) 0.4 mg extended release capsule Take 1 capsule (0.4 mg total) by mouth nightly 10/01/2024 traMADoL (ULTRAM) 50 mg tablet Take 1 tablet (50 mg total) by mouth every 8 (eight) hours as neededfor pain More than a month Review of Systems: All other systems negative except as indicated in HPI. Vitals 24hr Temp Min: 36.2 ??C (97.2 ??F) Max: 36.3 ??C (97.3 ??F) Pulse Min: 42 Max: 108 NIBP BP Min: 115/61 Max: 182/78 MAP (mmHg) Av.3 Min: 78 Max: 120 A-line Arterial Line BP Min: 82/61 Max: 299/290 Arterial Line MAP (mmHg) Av mmHg Min: 46 mmHg Max: 289 mmHg I/O: Intake/Output Summary (Last 24 hours) at 10/03/2024 1348 Last data filed at 10/03/2024 1320 Gross per 24 hour Intake 5194.82 ml Output 4635 ml Net 559.82 ml LABS Recent Labs Lab Units 10/03/24 0458 10/02/24 1601 10/02/24 1430 SODIUM mmol/L 143 141 -- POTASSIUM PLASMA mmol/L 4.7 4.2 -- CHLORIDE mmol/L 111* 112* -- CO2 mmol/L 22 22 -- ANIONGAP mmol/L 10 7 -- GLUCOSE mg/dL 146 118 -- POC GLUCOSE MONITOR mg/dL -- -- 104 BUN SERUM mg/dL 14 16 -- CREATININE mg/dL 1.29 1.30 -- CALCIUM mg/dL 8.3* 8.3* -- MAGNESIUM mg/dL -- 1.9 -- PHOSPHORUS PLASMA mg/dL -- 2.4 -- Recent Labs Lab Units 10/03/24 0458 10/02/24 1601 10/02/24 1430 WBC K/cumm 30.5* 16.3* -- HEMATOCRIT % 38.0* 38.7* -- HEMATOCRIT POC % -- -- 37.0* HEMOGLOBIN, POC g/dL -- -- 12.4* HEMOGLOBIN g/dL 13.0 12.7* -- PLATELETS K/cumm 346 255 -- APTT sec -- 27* -- INR -- 1.14 -- Recent Labs Lab Units 10/02/24 1601 ALK PHOS Units/L 64 BILIRUBIN TOTAL mg/dL 0.2 TOTAL PROTEIN g/dL 5.5* ALBUMIN g/dL 3.4* ALT Units/L 19 AST Units/L 21 Recent Labs Lab Units 10/02/24 1430 10/02/24 1043 PH ART 7.31* 7.32* PO2 ARTERIAL POC mmHg 264* 239* IMAGING (Most recent) NEURO IMAGING: PHYSICAL EXAM: General: NAD HEENT: Mucous membranes moist, sclera anicteric Cardiac: RRR, no M/R/G Pulmonary: Even, unlabored respirations. Symmetric chest rise and fall. Lungs clear to auscultationanterior payne. Abdomen: Non-distended in appearance, bowel sounds present, soft/non-tender to palpation. No massesor HSM. Ext: No peripheral edema or digital cyanosis Skin: No rashes or lesions NEURO EXAM Mental Status Eyes open spontaneously, regards, follows all commands, speech fluent, oriented x 3 Cranial Nerves PERRL, EOMI, Face symmetric, no dysarthria, +corneals/cough/gag Motor LUE cannot raise above shoulder but 5/5 strength in all muscle RUE AG and 5/5 all muscle groups LLE 4+/5 all muscle groups RLE 2/5 HF, KF 4/5, KE 4-/5, PF 5/5, DF 3/5, + myoclonus Diminished sensation RLE NEUROLOGICAL Meds: Tylenol 1g q6h Baclofen 10 mg BID Cymbalta 30 mg BID PRN oxycodone 5 mg q4h PRN ultram 50 mg q8h # Thoracic myelopathy s/p T3-5 laminectomy and decompression, arachnoid cyst wall fenestration -- POD #1 -- dex 6 mg q6h -- monitor drain output -- MAP augmentation > 110 with phenylephrine gtt -- no activity restrictions -- PT/OT # Acute pain -- tylenol 1g q6h, continue home baclofen 10 mg BID and cymbalta 30 mg BID -- PRN oxycodone 5 mg q4h, home PRN ultram 50 mg q8h CARDIOVASCULAR and HEME Meds: Phenylephrine gtt @ 1.7 mcg/kg/min EKG: pending # MAP augmentation -- MAP > 110 per NSGY, utilizing phenylephrine gtt -- daily troponins while augmenting PULMONARY Resp Min: 6 Max: 30 SpO2 Min: 90 % Max: 100 % Room air CXR 10/02 IMPRESSION: No priors available for comparison. Spinal stimulator overlies the midthoracic spine. Ill-defined airspace opacity predominantly in the left mid and upper lung as well as right midlung which may be due to aspiration and/or pneumonia. No pleural effusion or pneumothorax. Cardiom ediastinal silhouette is normal accounting for rotation. Meds: None No active issues. Mobilize OOB/IS when able. Maintain Sp02 > 92% RENAL Meds: # BPH -- home meds: finasteride 5 mg daily and tamsulosin 0.4 mg nightly -- urology consulted for difficulty placing zheng in OR, was able to place without any resistance. Urology signed off. -- hold tamsulosin and finasteride while zheng in place augmenting MAP GI and ENDO Meds: Colace 100 mg BID Senna 1 tab BID Miralax 17g daily PRN zofran Diet: Dietary Orders (From admission, onward) Start Ordered 10/02/241933 Adult Diet Regular Diet effective now Question: ([facility]) Diet type Answer: Regular 10/02/241932 IV fluids: NS @ 100 ml/hr Flushes: n/a Last BM: ENGLISH [employer]OR # Nutrition -- ADAT -- bowel reg with colace, senna, miralax # GI PPX -- pepcid BID while on pressors INFECTION RELEVANT/MOST RECENT MICRO LAB DATA: Blood cultures: none Respiratory cultures: none Urinalysis/Urine culture: none Meds: None # Leukocytosis without fever -- likely reactive iso surgery and steroids -- s/p post op ancef x24h -- hassan culture if T > 38.5c -- monitor WBC on CBC ACCESS Lines PIV x2 R radial a-line (10/02) Zheng Yes (10/02) placed by urology VTE Prophylaxis Last Venous Doppler: n/a Prophylaxis: SCDs, SQ lovenox CODE STATUS: Full Code Disposition: NNICU Laura Sheets NP Cosigned by Keri Ramon MD at 10/04/2024 3:53 PM DRY PAN CHARGER PAN CHARGER PAN CHARGER * Meghan Major DO - 10/02/2024 6:46 AM CST I have reviewed the H&P, examined the patient, and endorse the findings as written. Plan of Care : Based on the above findings, I consider Lili Delgado to be an acceptable risk for : Procedure(s): FUSION SPINAL - POSTERIOR LUMBAR/THORACIC WITH INSTRUMENTATION T3-5 posterior spinal fusion with 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 LAMINECTOMY THORACIC DECOMPRESSION SPINAL CORD MONITORING PAN CHARGER PAN CHARGER Source Note - Jeronimo Burch NP - 09/13/2024 10:58 AM CDT Images from the original note were not included. [facility] for Preoperative Assessment and Planning Preoperative Evaluation Record Evaluation type/location: [facility] Planned procedure site: [facility] (Pods 2/3/5/[employer]) Date: 09/13/24 Anesthesia Evaluation Lili Delgado is a 73 y.o. male FUSION SPINAL - POSTERIOR LUMBAR/THORACIC WITH INSTRUMENTATION T3-5 posterior spinal fusion with 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 (Spine Lumbar) LAMINECTOMY THORACIC DECOMPRESSION (Spine Lumbar) SPINAL CORD MONITORING Pre-Op Diagnosis Codes: * Thoracic myelopathy [M47.14] HISTORY HPI Lili Delgado is a 73 year old male with an unremarkable PMH who has been experiencing lower back pain with diffuse radiation pain numbness tingling down the legs and feet bilaterally, he does have a history of prior thoracic laminectomy for decompression many years ago, and additional L4-5 laminectomy and spinal cord stimulator placement in 11/2023, he is now being evaluated prior to undergoing posterior lumbar-thoracic spinal fusion with instrumentation 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/thoracic decompression laminectomy for thoracic myelopathy . Past Medical History Information obtained from: patient and chart. Information obtained during: In Person Neurological Pertinent negatives: seizures; neuromuscular disease; CVA/stroke; TIA; CEA; ICA stenosis; dementia/mild cognitive impairment and carotid artery stent Cardiovascular + DVT/PE (d/t PICC line on AC for about 6 months) Number of DVT/PE episodes: 1. Last VTE date: 2020. Pertinent negatives: hypertension ; CAD ; MT ; CABG ; valvular heart disease; valve replacement; atrial fibrillation; arrhythmia; pacemaker/ICD; PVD; negative for CHF; drug-eluting stent(s); bare metal stent(s) and coronary angioplasty Respiratory Pertinent negatives: COPD; asthma; sleep apnea (LIMA); pulmonary hypertension; no O2 use outside thehospital and non-smoker Hepatic / Heme Pertinent negatives: liver disease; history of anemia; history of thrombocytopenia and history of Ramu positive Gastrointestinal Pertinent negatives: GERD and hiatal hernia Renal / Pertinent negatives: renal disease; dialysis and nephrolithiasis Comments: H/o BPH Musculoskeletal/Pain + Chronic pain (L leg, SCS placed 11/2023) - back pain and neuropathic pain. Pertinent negatives: chronic opioid use and previous treatment for opioid use disorder Endocrine / Other + Obesity (BMI >30) + Infectious disease (h/o) - UTI. Pertinent negatives: diabetes mellitus; thyroid disease; cancer history; rheumatological disease and transplanted organ Functional Capacity Functional capacity: ambulates with assistance only and <4 METs Functional capacity limited by a non-cardiovascular, non-pulmonary condition. Comments: Patient utilizing a walker for assistance d/t balance issues and L leg weakness and neuropathy, denies SOB or CP w/activity Review of Systems + muscle weakness (B legs) + chronic pain (L leg, SCS placed 11/2023) + numbness/tingling (n/t B legs) Pertinent negatives: productive cough; wheezing; SOB; recent cold/flu; fever; chest pain; palpitations; orthopnea; pedal edema; PND; Sickle Cell disease/trait; previous transfusion; transfusion reaction; melena/hematochezia; easy bruising; bleeding problems; syncope; dizziness; hard of hearing; vision loss; heartburn; nausea; dysphagia; diarrhea; dentures/partials; chipped/loose teeth; abdominal pain; diaphoresis and no unexpected weight change PAT Summary and Plans Cardiac risk classification of planned procedure: intermediate cardiac risk. Preoperative assessment status: lab tests ordered. Additional comments: Lili Delgado is a 73 y.o. male who is being evaluated prior to undergoing an intermediate cardiac risk surgery. Revised Cardiac Risk Index factors are (none) for a total RCRI of 0 out of 6. Functional capacity is <4 METs. Obstructive sleep apnea (LIMA) screening status is STOP-Bang=2 suggesting low risk for LIMA Blood bank needs for day of procedure: Type and Screen only Pending labs/tests include: CBC BMP T&S PT PTT Urinalysis flex Vitamin D +Patient has SCS, discussed w/patient to bring remote with him on DOS, patient verbalized understanding. Preoperative evaluation performed by Sully Archer NP on 09/13/24 at 11:29 AM. . Follow up note Labs reviewed and are without significant findings. Surgeon's office reviews laboratory results independently, including final results of surgeon ordered labs. CPAP process complete. 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 07/12/2024 Left upper quadrant pain 05/16/2024 Abdominal pain 04/28/2024 Open wound of lower leg 04/10/2024 Irritable bowel syndrome 05/17/2023 Sinusitis 10/26/2022 Hyperlipidemia 11/03/2021 Deep vein thrombosis (DVT) of upper extremity (CMS/HCC) ([facility]) 09/29/2021 Essential (primary) hypertension 08/04/2021 Abnormal EKG 07/31/2021 Benign prostatic hyperplasia without urinary obstruction 10/21/2020 Gastroesophageal reflux disease without esophagitis 10/21/2020 Elevated blood-pressure reading without diagnosis of hypertension 10/02/2019 Obesity 03/15/2019 Osteoarthritis of hip 11/15/2017 Lumbar spondylosis 11/15/2017 Pain of right hip joint 11/01/2017 Neuropathy (CMS/HCC) 11/01/2017 Prediabetes 08/10/2017 Stage 3 chronic kidney disease (HCC) 08/10/2017 Lumbago 06/04/2009 Numbness 06/04/2009 No past medical history on file. Past Surgical History: Procedure Laterality Date LUMBAR SPINE SURGERY 2020 L4/L5 SPINAL CORD STIMULATOR IMPLANT 2023 SPINE SURGERY 2011 TUMOR REMOVAL 2020 bladder tumor excision Allergies Allergen Reactions Sulfa Unknown Childhood reaction - unknown what reaction occurred Med List Status: Nurse Complete Set By: Alexandra Conti RN at 09/13/2024 10:43 AM Taking? Last Dose Start Date End Date Provider baclofen (LIORESAL) 10 mg tablet 09/13/2024 04/18/24 -- Zachery Rashid MD DULoxetine (CYMBALTA) 30 mg capsule 09/13/2024 04/10/24 -- Zachery Rashid MD finasteride (PROSCAR) 5 mg tablet 09/13/2024 05/23/24 -- Zachery Rashid MD mupirocin (BACTROBAN) 2 % ointment -- 07/27/24 -- James Robles MD Apply to each nostril 2 (two) times a day Apply pea size amount into each nostril twice a day for 5days prior to surgery. Saccharomyces boulardii (Florastor) 250 mg capsule 09/13/2024 -- -- Zachery Rashid MD tamsulosin (FLOMAX) 0.4 mg extended release capsule 09/12/2024 04/10/24 -- Zachery Rashid MD traMADoL (ULTRAM) 50 mg tablet Past Month -- -- Zachery Rashid MD -- -- -- -- -- -- -- -- -- -- -- Current Outpatient Medications: baclofen (LIORESAL) 10 mg tablet DULoxetine (HAILEYALTIM) 30 mg capsule finasteride (PROSCAR) 5 mg tablet mupirocin (BACTROBAN) 2 % ointment Saccharomyces boulardii (Florastor) 250 mg capsule tamsulosin (FLOMAX) 0.4 mg extended release capsule traMADoL (ULTRAM) 50 mg tablet Social History Tobacco Use Smoking Status Never Passive exposure: Never Smokeless Tobacco Never Alcohol Use: Not At Risk (09/13/2024) AUDIT-C Frequency of Alcohol Consumption: Never Average Number of Drinks: Patient does not drink Frequency of Binge Drinking: Never Substance and Sexual Activity Drug Use Never No family history on file. PAT Physical Exam Airway Exam: Mallampati: III Cervical ROM: FROM TM distance: 3 Upper lip bite test class: 2 Cardiovascular Exam: Rate: regular Rhythm: regular Negative for peripheral edema Pulmonary Exam: LCTA, bilat EENT Exam: trachea midline Dental Exam: Appears intact Skin Exam: Skin is warm and dry. Abdominal exam: Abdomen is soft. Bowel sounds are present. Current state: Patient's current state is interactive and cooperative. Vitals: 09/13/24 1025 09/13/24 1032 BP: 147/82 151/76 Pulse: 82 Resp: 16 SpO2: 100% PT: No results found for requested labs within last 30 days. INR: No results found for requested labs within last 30 days. APTT: No results found for requested labs within last 30 days. Hgb A1C: No results found for requested labs within last 30 days. CBC RBC: No results found for requested labs within last 30 days. RDW: No results found for requested labs within last 30 days. MCHC: No results found for requested labs within last 30 days. MCH: No results found for requested labs within last 30 days. MCV: No results found for requested labs within last 30 days. Hct: No results found for requested labs within last 30 days. Hgb: No results found for requested labs within last 30 days. WBC: No results found for requested labs within last 30 days. MPV: No results found for requested labs within last 30 days. Platelets: No results found for requested labs within last 30 days. RDW CV: No results found for requested labs within last 30 days. RDW Sd: No results found for requested labs within last 30 days. BMP Glucose: No results found for requested labs within last 30 days. Calcium: No results found for requested labs within last 30 days. Sodium: No results found for requested labs within last 30 days. Potassium: No results found for requested labs within last 30 days. CO2: No results found for requested labs within last 30 days. Chloride: No results found for requested labs within last 30 days. BUN: No results found for requested labs within last 30 days. Creatinine: No results found for requested labs within last 30 days. STOP-Bang Total Score: 2 Elayne index score: 70 AD8 Dementia Score: 0 Short Blessed Total Score: 0 documented in this encounter Procedure Notes * Ti Pressley RN - 10/13/2024 2:30 PM CST Vascular Access Nurse: Procedure Note Summary of treatment provided to patient today is as follows : . Vascular Access Documentation (Last 4 Hours) [facility] Additional Procedures Row Name 10/13/24 1428 Procedures Time in 1419 -AW Time out 1434 -AW Time Calculation (min) 15 min -AW Vascular Access Procedures Difficult IV start -AW [REMOVED] Peripheral IV 10/02/24 18 G Left Hand IV Properties Placement Date: 10/02/24 -SE Placement Time: 0614 -SE Size (Gauge): 18 G -SE LocationOrientation: Left -SE Location: Hand -SE Removal Date: 10/13/24 -MC Removal Time: 1325 -MC Removal Reason : Catheter damage -MC [REMOVED] Peripheral IV 10/02/24 18 G Right Hand IV Properties Placement Date: 10/02/24 -KB Placement Time: 1500 -KB Size (Gauge): 18 G -KB LocationOrientation: Right -KB Location: Hand -KB Removal Date: 10/13/24 -MC Removal Time: 1325 -MC RemovalReason : Infiltrated -MC User Cuellar (r) = Recorded By, (t) = Taken By, (c) = Cosigned By Initials Name Juanis Keith RN AW Warren, Anthony James, RN Fe Brower Katrina I., RN Follow up:PIV placed w/o complication Ti Pressley RN PAN CHARGER * Jessica Fernández RN - 10/03/2024 11:32 PM CST Images from the original note were not included. Vascular Access Nurse: Procedure Note Summary of treatment provided to patient today is as follows : . Bedside Procedure Time out/Checklist (Last 4 Hours) Pre-Op Checklist Row Name 10/03/24 2200 Patient Preparation Temp 37.4 ??C (99.3 ??F) -SAMANTHA User Cuellar (r) = Recorded By, (t) = Taken By, (c) = Cosigned By Initials Name Dmitry Rondon, manager surgery Access Documentation (Last 4 Hours) [facility] Additional Procedures Row Name 10/03/24 2332 Procedures Time in 2331 -ST Time out 2339 -ST Time Calculation (min) 8 min -ST Vascular Access Procedures Canceled on arrival -ST Canceled on arrival Procedure canceled;Patient refused patient refusing PICC placement at this time, he wants to speak to his before agreeing to PICC placement. RN at bedside and aware. PICC placed on HOLD for now. -ST Peripheral IV 10/02/24 18 G Left Hand IV Properties Placement Date: 10/02/24 -SE Placement Time: 0614 -SE Size (Gauge): 18 G -SE LocationOrientation: Left -SE Location: Hand -SE Peripheral IV 10/02/24 18 G Right Hand IV Properties Placement Date: 10/02/24 -KB Placement Time: 1500 -KB Size (Gauge): 18 G -KB LocationOrientation: Right -KB Location: Hand -KB Arterial Line 10/02/24 Right Radial Art Line Properties Placement Date: 10/02/24 -CU Placement Time: 0832 -CU, created via procedure documentation Size: 20 G -CU Orientation: Right -CU Location: Radial -CU Securement Method: Taped;Transparent dressing -CU User Cuellar (r) = Recorded By, (t) = Taken By, (c) = Cosigned By Initials Name Juanis Keith RN CU Umesi, Chizoba, MD Jessica Fernández RN KB Brail, Katrina I., RN Plan: Follow up: Jessica Fernández RN PAN CHARGER * Olaf Pena III, MD - 10/02/2024 2:27 PM CST INTRAOPERATIVE NEUROMONITORING REPORT Name: Lili Delgado Date of Procedure: Surgeon: Travis SOUSA Physician Start Time: 10:07 AM IOM Physician End Time: 2:27 PM Total IOM Physician Time: 4 hours, 20 minutes Patient History: The patient is a 74 year old man with a history of prior thoracic laminectomy for decompression andadditional L4-5 laminectomy and spinal cord stimulator placement in 12/15. He has had low back pain and radiating numbness. He is undergoing T3-5 laminectomy and decompression, arachnoid cyst wall fenestration for thoracic myelopathy. DESCRIPTION: Intraoperative Somatosensory Evoked Potential (SSEP), Motor Evoked Potential (MEP) and EMG monitoring were performed to reduce the risk of post-operative motor or sensory deficits. Sensory evoked potentials were performed throughout the case with bipolar stimulating electrodes attached over the posterior tibial nerve at each ankle. Interleaved constant current electrical stimulation was delivered at a level sufficient to produce a localized motor response. Surface electrodes were attached at peripheral and central sites to record the afferent volley, activity from the rostral brainstem and responses from the sensory cortex. In addition, bipolar stimulating electrodes were also attached over the ulnar nerve in each upper extremity. Constant current electrical stimulation sufficient to produce a small, localized twitch was independently delivered an interleaved manner to each nerve. Surface electrodes were attached over peripheral and central sites to record the afferent volley, postsynaptic activity within the dorsalhorn nuclei, and responses from the sensory cortex. Throughout the case, the absolute latency and amplitude of the relevant sensory components were recorded and trended. Latency of the brainstem response as well as central conduction time was also trended. Transcranial electrical motor evoked potentials (TcMEP) were also obtained throughout the procedure. Stimulation was achieved using the electrical stimulator integrated into the [employer] evoked potential machine. Bilateral TcMEPs were recorded in the form of compound muscle action potentials obtained from subdermal electrodes placed in the left and right Abductor Pollicis Brevis, Adductor Longus, Vastus Medialis, Tibialis Anterior, Gastrocnemius, and Abductor Hallucis muscles. During the case there were changes in TcMEPs with a decrease in amplitude and complexity of the Abductor Hallucis response bilaterally and complete loss of other TcMEPs in the lower extremities. The hand/Abductor Pollicis Brevis response was preserved bilaterally. These changes progressed to loss of all MEP responses in the lower extremities. There was also a decrease and then loss of SSEPs from left lower extremity stimulation, and the SSEPs from right lower extremity stimulation were present but more poorly formed. Responses had not significantly improved or returned to baseline by the end of the procedure. All changes were reported to the surgical team at the times they occurred. No moreno es in upper extremity data were noted throughout the case. IMPRESSION: Abnormal intraoperative monitoring with a loss of TcMEPs from the lower extremities and SSEP changes as described above. The surgical team was made aware of all changes at the times they occurred. PAN CHARGER documented in this encounter Consult Notes * Claudia Ryan NP - 10/09/2024 3:53 PM CSTAssociated Order(s): IP CONSULT TO HEMATOLOGY Images from the original note were not included. Hematology Consult Note Subjective Patient name: Lili Delgado : 1950 Reason for consult: management of post-op acute RLE DVT, possible IVC filter placement Consult requested by: Osiris Guillen NP HPI: Patient is a 74 y.o., male with a history of BPH, CKD, obesity, chronic lower back pain s/p prior spinal surgery (2020 and 2010) and spinal cord stimulator placement 11/2023, hx of DVT 2020 in the setting of PICC line and was reportedly tx with AC x6 months, who presented to [facility] for T3-5 laminectomy/ decompression and intradural arachnoid web resection by Dr Robles on 10/02/2024. He was found to have an acute DVT in RLE (popliteal vein) on venous dopplers from 10/09/2024 (today). Hematology consulted for recommendations and to inquire about IVC filter placement. Today, I am treating the patient for acute RLE DVT in setting of surgery. Information obtained frompatient and chart. Reviewed available notes to determine appropriate treatment plan. Independently interpreted most recent labs which show WBC 19.8 Hgb 11.2 Plt 264,000. Patient has a hx of prior DVT from 2020, in the setting of PICC line tx with anticoagulation x6 months. Past Medical History: Diagnosis Date Back pain BPH (benign prostatic hyperplasia) CKD (chronic kidney disease) stage 3, GFR 30-59 ml/min (HCC) Obesity Renal cyst Past Surgical History: Procedure Laterality Date LUMBAR SPINE SURGERY 2020 L4/L5 SPINAL CORD STIMULATOR IMPLANT 2023 SPINE SURGERY 2010 TUMOR REMOVAL 2020 bladder tumor excision Medications Prior to Admission Medication Sig Dispense Refill Last Dose/Taking baclofen (LIORESAL) 10 mg tablet Take 1 tablet (10 mg total) by mouth 2 (two) times a day 10/01/[address] (CYMBALTA) 30 mg capsule Take 1 capsule (30 mg total) by mouth 2 (two) times a day 10/01/2024 finasteride (PROSCAR) 5 mg tablet Take 1 tablet (5 mg total) by mouth every morning 10/01/2024 mupirocin (BACTROBAN) 2 % ointment Apply to each nostril 2 (two) times a day Apply pea size amount into each nostril twice a day for 5 days prior to surgery. 22 g 0 10/01/2024 Saccharomyces boulardii (Florastor) 250 mg capsule Take 1 capsule (250 mg total) by mouth every morning 10/01/2024 tamsulosin (FLOMAX) 0.4 mg extended release capsule Take 1 capsule (0.4 mg total) by mouth nightly 10/01/2024 traMADoL (ULTRAM) 50 mg tablet Take 1 tablet (50 mg total) by mouth every 8 (eight) hours as neededfor pain More than a month Allergies Allergen Reactions Sulfa Unknown Childhood reaction - unknown what reaction occurred Social History Tobacco Use Smoking status: Never Passive exposure: Never Smokeless tobacco: Never Substance and Sexual Activity Drug use: Never Sexual activity: Defer Alcohol Use: Not At Risk (10/02/2024) AUDIT-C Frequency of Alcohol Consumption: Never Average Number of Drinks: Patient does not drink Frequency of Binge Drinking: Never No family history on file. REVIEW OF SYSTEMS: Review of systems per HPI and otherwise all other systems are negative Objective Vitals: 24hr Min/Max: Temp Min: 36.3 ??C (97.4 ??F) Max: 36.8 ??C (98.3 ??F) Pulse Min: 50 Max: 57 BP Min: 132/68 Max: 159/89 Resp Min: 15 Max: 16 SpO2 Min: 96 % Max: 99 % Physical Exam: CONSTITUTIONAL: Alert, Normal Appearance, No Acute Distress HENT: Normocephalic, Atraumatic, Nose Normal EYES: Sclera Anicteric, Conjunctivae Normal NECK: ROM Normal, No Erythema RESPIRATORY: Effort Normal, No Respiratory Distress MSK: ROM Normal, No Deformity SKIN: No Rash, No Jaundice, upper back incision covered (clean/dry) NEUROLOGIC: A/O x 3, No Focal Deficit PSYCHIATRIC: Judgement Normal, Mood Appropriate HEMATOLOGIC: No Petechiae, No Ecchymoses Lab/Radiology/Diagnostic Review: Recent Labs Lab Units 10/08/24221410/07/24221810/06/246 10/03/24 0458 10/02/24 1601 SODIUM mmol/L 141 142 140 < > 141 POTASSIUM PLASMA mmol/L 4.6 4.5 4.7 < > 4.2 CHLORIDE mmol/L 107 107 105 < > 112* CO2 mmol/L 25 26 25 < > 22 BUN SERUM mg/dL 33* 33* 32* < > 16 CREATININE mg/dL 1.33* 1.21 1.22 < > 1.30 GLUCOSE mg/dL 108 140 152 < > 118 POC GLUCOSE MONITOR -- -- -- < > -- CALCIUM mg/dL 8.6 8.5 8.7 < > 8.3* PHOSPHORUS PLASMA mg/dL 3.1 -- -- -- 2.4 < > = values in this interval not displayed. Recent Labs Lab Units 10/08/24221410/07/24221810/06/242115 WBC K/cumm 19.8* 17.2* 17.1* HEMOGLOBIN g/dL 11.2* 11.4* 10.8* HEMATOCRIT % 32.9* 32.7* 30.7* PLATELETS K/cumm 264 264 256 Hematology Lab History Latest Ref Rng & Units 10/05/2024 22:43 10/06/2024 21:16 10/07/2024 22:19 10/08/2024 22:15 Labs - Hematology WBC 3.8 - 9.9 K/cumm 16.5 17.1 17.2 19.8 Total Hb, POC 13.0 - 17.5 g/dL 10.5 10.8 11.4 11.2 Hct 38.9 - 50.3 % 31.4 30.7 32.7 32.9 Plt 150 - 400 K/cumm 238 256 264 264 Chem/LFT Lab History Latest Ref Rng & Units 10/05/2024 22:43 10/06/2024 21:16 10/07/2024 22:19 10/08/2024 22:15 Labs-Chem/LFT Sodium 135 - 145 mmol/L 143 140 142 141 Creatinine 0.80 - 1.30 mg/dL 1.14 1.22 1.21 1.33 Bilirubin, total 0.1 - 1.2 mg/dL 0.3 AST 10 - 50 Units/L 19 ALT 7 - 55 Units/L 39 Alk phos 40 - 130 Units/L 49 CrCl- Actual Body Weight (Cockcroft-Gault) 81.3 76 76.6 69.7 Principal Problem: Thoracic myelopathy Assessment and Plan Patient is a 74 y.o., male with a history of BPH, CKD, obesity, chronic lower back pain s/p prior spinal surgery (2020 and 2010) and spinal cord stimulator placement 11/2023, hx of DVT 2020 in the setting of PICC line and was reportedly tx with AC x6 months, who presented to [facility] for T3-5 laminectomy/ decompression and intradural arachnoid web resection by Dr Robles on 10/02/2024. He was found to have an acute DVT in RLE (popliteal vein) on venous dopplers from 10/09/2024 (today). Hematology consulted for recommendations and to inquire about IVC filter placement. Today, I am treating the patient for acute RLE DVT in setting of surgery. Information obtained frompatient and chart. Reviewed available notes to determine appropriate treatment plan. Independently interpreted most recent labs which show WBC 19.8 Hgb 11.2 Plt 264,000. Patient has a hx of prior DVT from 2020, in the setting of PICC line tx with anticoagulation x6 months. This is his 2nd event. Although provoked, given two events, indefinite therapeutic anticoagulation is warranted. Complex medical decision making involved. Discussed test interpretation and recommendations with primary team. Recommendations: - recommend starting therapeutic anticoagulation as long as safe from surgery standpoint (load withApixaban 10mg BID x7 days then 5mg BID PO) - would not recommend placement of IVC filter as long as patient able to be started on therapeutic anticoagulated within the next few days In addition to possible IVC filter procedure related complications (bleeding, filter malposition, filter erosion and damage to blood vessels), IVC filter may increased clot burden in LE. In absence of anticoagulation, patient may develop IVC thrombosis which can result in increased LE pain and swelling. IVC filter can also clot off and increase the risk of a PE. If IVC filter placed, recommend IVC filter retrieval as soon as patient is able to be on therapeutic anticoagulation (ideally, should be removed within 3 months from placement to avoid complications) - f/u in Heme clinic to further discuss anticoagulation (2nd event calls for indefinite anticoagulation. However, given that both events are thought to be provoked, length of AC therapy to be discussed in detail with outpatient Film Numberer). Heme f/u with Dr Salmon in about 3 months has been requested. Thank you for allowing us to participate in the care of Mr Delgado and we will continue to follow peripherally. Please call the Hematology service with any additional questions or concerns. This case was discussed with my attending physician Dr Salmon, who agrees with the above mentionedassessment and plan. Pg [phone] Weekdays 8AM-4PM Weeknights 4PM - 8AM, all day on Weekends, all day on holidays and my days off work, please contactthe on-call fellow at [phone] For patients or family members viewing this note through [employer] programs. This note was written as a communication tool between healthcare providers and may contain technical language, terminology and abbreviations that is difficult to interpret without advanced medical training. If you have questions or concerns regarding what is written in this note, please contact ouroffice or, if you or your family member is admitted to the hospital, the primary team responsible for your care. Please do not call the cell or pager numbers listed in this note, as the provider theyare associated with may no longer be involved in your care. Claudia Ryan NP Department of Hematology 10/09/2024 , 3:53 PM Cosigned by Jason Salmon MD at 10/15/2024 6:32 PM DRY PAN CHARGER PAN CHARGER PAN CHARGER * Mary Lou Jack MD - 10/09/2024 11:30 AM CSTAssociated Order(s): IP CONSULT TO CARDIOLOGY Cardiology Consult Note - General Cardiology Patient Name: Lili Delgado : 1950 Date of Service: 10/09/24 Requesting Attending: James Robles MD Reason for Consult: Other: management of post-op RLE acute DVT, sinus beba with new 1st degree A/Vblock Chief Complaint: Back Pain HPI Lili Delgado is a 74 y.o. male with a history of BPH, CKD 3, obesity, lower back pain s/p prior thoracic and lumbar laminectomy with spinal cord stimulator placement 11/2023 who presented for 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 on 10/02/2024. General Cardiology has been consultedfor bradycardia, 1st degree AV block, and new RLE DVT. Patient has prior history of DVT back in 2020 attriibuted to PICC line, for which he was reportedlyon anticoagulation for about 6 months. In 07/2021 he also saw OSH library clerk Dr. Saez for pre-op eval, and was noted to have sinus bradycardia at that time. Patient reports multiple years of constant LUQ abdominal and L lower chest pain, described as 4/10 dull pain over his L lower ribs. Pain may have onset after a COVID episode back in 2019, though he cannot recall the details. He notes when he coughs, the pain will significantly worsen to a 10/10 pain like a searing iron radiating to his back. He saw his OSH PCP for this, who reportedly performeda CT scan that found renal cysts. He was then referred to his urologist who reportedly found bladder stones that may be refluxing back to his kidneys ; however, no records of these visits are available. At some point he also saw a neurologist who reportedly performed EMG testing of his L leg numbne ss and his L chest numbness. After undergoing neurosurgical intervention on October 02, patient developed new weakness in hisR leg. ECG on October 03 noted 1st degree AV block. Post- op Trops downtrended from 145 -> 132-> 128 -> 30. This AM, DVT US found acute R popliteal DVT. Repeat ECG noted sinus bradycardia with 1st degree AV block once again. Today he reports stable L ribcage pain similar to prior. No association with taking deep breaths. No dyspnea, chest pain, lightheadedness, dizziness, or pre-syncope. Review of Systems: Review of systems as per HPI and, otherwise all other systems are negative. PMHX: has a past medical history of Back pain, BPH (benign prostatic hyperplasia), CKD (chronic kidney disease) stage 3, GFR 30-59 ml/min (HCC), Obesity, and Renal cyst. PSHX: has a past surgical history that includes Tumor removal (2020); Spinal cord stimulator implant (2023); Lumbar spine surgery (2020); and Spine surgery (2010). Family Hx: Adopted so unsure of family history. Possible MT in father Social Hx: reports that he has never smoked. He has never been exposed to tobacco smoke. He has never used smokeless tobacco. He reports that he does not use drugs. Allergies: Allergies Allergen Reactions Sulfa Unknown Childhood reaction - unknown what reaction occurred Home Medications: HOME MEDICATIONS : baclofen (LIORESAL) [address] (CYMBALTA) 30 mg capsule finasteride (PROSCAR) 5 mg tablet mupirocin (BACTROBAN) 2 % ointment Saccharomyces boulardii (Florastor) 250 mg capsule tamsulosin (FLOMAX) 0.4 mg extended release capsule traMADoL (ULTRAM) 50 mg tablet Current Medications: baclofen, 10 mg, oral, BID dexAMETHasone, 1 mg, oral, Q8H FENG Followed by dexAMETHasone, 1 mg, oral, Q12H FENG Followed by [START ON 10/11/2024] dexAMETHasone, 1 mg, oral, Daily docusate sodium, 100 mg, oral, BID DULoxetine DR, 30 mg, oral, BID enoxaparin, 30 mg, subcutaneous, Daily-2100 famotidine, 20 mg, oral, Q12H FENG finasteride, 5 mg, oral, QAM polyethylene glycol, 17 g, oral, Daily senna, 1 tablet, oral, BID tamsulosin, 0.4 mg, oral, Daily with dinner Objective Vital Signs: 24hr Min/Max: Temp Min: 36.3 ??C (97.4 ??F) Max: 36.8 ??C (98.2 ??F) Pulse Min: 50 Max: 82 BP Min: 102/44 Max: 159/89 Resp Min: 15 Max: 17 SpO2 Min: 90 % Max: 99 % Most Recent: Vitals: 10/09/24 0845 BP: 138/68 Pulse: 56 Resp: 16 Temp: 36.3 ??C (97.4 ??F) SpO2: 99% Intake/Output: Intake/Output Summary (Last 24 hours) at 10/09/2024 1130 Last data filed at 10/09/2024 0845 Gross per 24 hour Intake -- Output 3925 ml Net -3925 ml Physical Exam: General appearance: Obese gentleman laying in bed, in no acute distress. A&Ox4. HEENT: NCAT, MMM, anicteric Lungs: CTAB, no w/r/r, non-labored Heart: +Bradycardic. RRR, S1, S2 normal, no murmur, rub or gallop. JVP not elevated. Minimally pitting R>LLE edema. Abdomen: soft, NT/ND; bowel sounds normal Extremities: extremities normal, warm and well-perfused, equal pulses Skin: warm and dry Neurologic: Absent sensation to light touch over LUQ abdomen and L lower ribs. 1/5 strength in R leg, only able to wiggle toes and abduct knee slightly. Unable to move leg back and forth even on plane of bed. Psych: Normal mood and affect Lab/Radiology/Diagnostic Review: Labs: Recent Labs Lab Units 10/08/24 2215 10/07/24 2219 10/06/24 2116 10/05/24 2243 10/04/24 2049 HEMOGLOBIN g/dL 11.2* 11.4* 10.8* 10.5* 10.5* HEMATOCRIT % 32.9* 32.7* 30.7* 31.4* 31.0* WBC K/cumm 19.8* 17.2* 17.1* 16.5* 23.0* PLATELETS K/cumm 264 264 256 238 207 Recent Labs Lab Units 10/08/24 2215 10/03/24 0458 10/02/24 1601 SODIUM mmol/L 141 < > 141 POTASSIUM PLASMA mmol/L 4.6 < > 4.2 CHLORIDE mmol/L 107 < > 112* CO2 mmol/L 25 < > 22 ANIONGAP mmol/L 9 < > 7 BUN SERUM mg/dL 33* < > 16 CREATININE mg/dL 1.33* < > 1.30 CALCIUM mg/dL 8.6 < > 8.3* MAGNESIUM mg/dL 2.3 -- 1.9 < > = values in this interval not displayed. Recent Labs Lab Units 10/08/24 2215 ALBUMIN g/dL 2.9* ALK PHOS Units/L 49 AST Units/L 19 ALT Units/L 39 BILIRUBIN TOTAL mg/dL 0.3 Recent Labs Lab Units 10/02/24 1601 APTT sec 27* INR 1.14 Recent Labs Lab Units 10/02/24 1430 PH ART 7.31* PO2 ARTERIAL POC mmHg 264* Cultures: Lab Results Component Value Date MICROBIOLOGY Preliminary Report: No growth to date. 10/07/2024 MICROBIOLOGY Preliminary Report: No growth to date. 10/07/2024 I personally reviewed the Telemetry images with the following findings: HR consistently 40s-50s with 1st degree AVB since 10/05 evening. 2 second sinus pause on 10/05 around midnight, no sinus pauses since then. I personally reviewed the ECG images with the following findings: Sinus Bradycardia with 1st degree AVB TTE: none on file Assessment/Plan Mr. Delgado is a 74 y.o. male with hx CKD 3 and chronic back pain who presented for thoracic laminectomy. Cardiology consulted for chronic L lower chest pain and bradycardia with 1st degree AV block. #Chronic Sinus Bradycardia #1st degree AV Block #Chronic Chest Pain Patient has prior chart hx of sinus bradycardia in 2020, though no previous ECGs are available before this hospitalization. He also notes multiple years of chronic L ribcage pain and numbness, with flare-ups radiating to his back when he coughs. This admission, he again reported similar chest pain and sinus bradycardia, with the addition of 1st degree AV block. No new symptoms or change in prior symptoms. Trops down to 30 post-op, and ECG negative for any ST changes. Chest pain overall appears non-cardiac in etiology. In fact, it appears more likely neuropathic given the location immediately over his rib and the associated numbness on exam. In addition, his sinusbradycardia appears entirely asymptomatic and chronic as well. His 1st degree AV block is similarly asymptomatic, and has been present on telemetry since at least 10/05 evening. Recommendations - Consider starting Lidocaine patch for topical pain relief over L ribcage - Agree with starting anticoagulation for new R popliteal DVT - No need for further cardiac evaluation at this time Cardiology Consults will sign off. Please reach out if there are any further questions or concerns. We appreciate the ability to be involved in this patient's care. If after 5PM or on weekends, please page the cardiology clinical nurse specialist consolidation accountant with any questions or concerns. Mary Lou Mayfield Ma, MD 11:30 AM 10/09/24 Cosigned by Sofia Ochoa MD at 10/10/2024 2:53 PM DRY PAN CHARGER PAN CHARGER PAN CHARGER PAN CHARGER PAN CHARGER Associated attestation - Sofia Ochoa MD - 10/10/2024 2:53 PM DRY PAN CHARGER I have seen and examined the patient on 10/09/2024. I agree with the findings and plan of care as documented in the resident's/fellow's note.. * File, Neha Carrion NP - 10/02/2024 10:26 AM CST BRIEF UROLOGY CONSULT NOTE Lili Delgado is a 74 y.o. male admitted for spinal fusion. Urology was consulted for difficulty placing a Zheng catheter. The patient is intubated for surgery. Staff unable to retract foreskin, urology called for assistance Urologic history: BPH. Patient's foreskin with phimosis but able to move manipulate foreskin enough to visualize urethral meatus. Using the standard sterile technique, we placed a 16Fr Zheng catheter without any resistanceor difficulty. Balloon inflated with 10cc. Patient tolerated it well, and urine was clear yellow Zheng difficulty assessment checklist: Yes No Required a coude catheter? [] [x] Required cystoscopy? [] [x] MD attempted to place? [] [x] Needs urology follow up? [] [x] Recommendations: - Zheng management per primary team. - Primary can discontinue zheng and void trial when deemed appropriate. - If the patient fails his void trial, please start him on Flomax 0.4mg/day and replace the catheter. If unable to place catheter, please do not hesitate to contact Urology and we would be happy to assist. - If he fails void trial, he can be discharged with the Zheng catheter and follow up with Urology as outpatient. The phone number for our clinic is [phone] - Urology will sign off. Thank you for allowing us to participate in this patient's care. To reach the urology consult resident from 6:00 to 18:00 (Wednesday-Wednesday), please call [phone].If you want to contact Urology consults after hours (18:00 to 6:00) and over the weekend, please call the microfiche camera operator Neha Templeton NP PAN CHARGER documented in this encounter Nursing Notes * Jaimie Curiel RN - 10/11/2024 6:51 PM CST [id number] Alert and appropriate. Medicated for pain. Zheng to gravity. Tolerating diet. Heparin gttper nomogram. IVF as ordered. Up in chair. Total lift back to bed. See labs, flowsheets. PAN CHARGER * Kristin Land RN - 10/05/2024 9:37 PM CST Patient transferred to room [address] [place] [address]. Neuro status and VSS. Bedside shift report given to MARK Fox. Patient belongings transferred w/ pt, and are at bedside. PAN CHARGER * Melia Maria RN - 10/02/2024 4:23 PM CST Per handoff from neurosurgery keep map greater than 110. Patient lost lower motors in OR. Neurosurgery will be by to reassess patient in a couple hours when more awake. No need to call if patient cannot move lower extremities when he is more awake as neurosurgery will reassess patient and this finding is not unexpected. Neurosurgery at bedside assessing patient. PAN CHARGER PAN CHARGER documented in this encounter Miscellaneous Notes * Plan of Care - Marla Larson RN - 10/13/2024 2:12 PM CST Per Medical Chart/Rounds/IDR: Heparin infusion. Marce replaced ADD: 10/14 Plan/referrals made/in place: [facility] following Transportation: [facility] F/U Appointments: Patient to follow up with spinal surgery Plan for weekend discharge: [facility] following. Liaison Stephanie [phone] consolidation accountant for this weekend. [facility] on hole, trip # [phone]. Discharge packet initiated and placed by patient's paper chart folder. Will follow. PAN CHARGER PAN CHARGER * Plan of Care - Marla Larson RN - 10/13/2024 9:21 AM CST Per Rounds: Dopplers. Heparin infusion. Marce replaced. ADD: 10/14 Plan & referrals made/in place: [facility] following. Patient's Identified Problem/Goal Problem: Ensure acute medical needs are met and patient has a safe discharge plan. Goal: Secure a discharge plan that patient/family are agreeable with and ensure patient has continuum of care. Acute Care Assistant will continue to follow and assist with discharge planning as needed PAN CHARGER * Plan of Care - Marla Larson RN - 10/12/2024 9:50 AM CST Per Rounds: IV fluids. Heparin infusion ADD: next week Plan & referrals made/in place: [facility] following. Notified liaison Lachelle of updated ADD Patient's Identified Problem/Goal Problem: Ensure acute medical needs are met and patient has a safe discharge plan. Goal: Secure a discharge plan that patient/family are agreeable with and ensure patient has continuum of care. Acute Care Assistant will continue to follow and assist with discharge planning as needed PAN CHARGER PAN CHARGER * Plan of Care - Joyce Guillen RN - 10/12/2024 7:37 AM CST Problem: Lack of Knowledge Goal: Ability to develop a pain control plan will improve Outcome: Progressing Problem: Medication Goal: Satisfaction with pain management medication regimen will improve Outcome: Progressing Problem: Sensory Goal: Ability to identify factors that increase pain levels will improve while working to decrease the patient's pain levels Outcome: Progressing Problem: Coping Goal: Ability to cope will improve Outcome: Progressing Problem: Health Behavior Goal: Identification of resources available to assist in meeting health care needs will improve Outcome: Progressing Problem: Skin Integrity Impairment Risk Goal: Mobility will improve Outcome: Progressing Goal: Understanding of ways to prevent future skin breakdown will improve Outcome: Progressing Goal: Nutritional status will improve Outcome: Progressing Goal: Risk for impaired skin integrity will decrease Outcome: Progressing Problem: Fall Risk Goal: Ability to state ways to decrease the risk of falls will improve Outcome: Progressing Goal: Will remain free from falls Outcome: Progressing Goal: Will remain free from injury from falls Outcome: Progressing Problem: Neurosensory Goal: Achieves stable or improved neurological status Outcome: Progressing Goal: Achieves maximal functionality and self care Outcome: Progressing Problem: Respiratory Goal: Achieves optimal ventilation and oxygenation Outcome: Progressing Problem: Cardiovascular Goal: Maintains optimal cardiac output and hemodynamic stability Outcome: Progressing Goal: Absence of cardiac dysrhythmias or at baseline Outcome: Progressing Problem: Skin/Tissue Integrity Goal: Skin integrity remains intact Outcome: Progressing Goal: Incisions, wounds, or drain sites healing without S/S of infection Outcome: Progressing Goal: Oral mucous membranes remain intact Description: Outcome: Progressing Problem: Musculoskeletal Goal: Return mobility to safest level of function Outcome: Progressing Goal: Maintain proper alignment of affected body part Outcome: Progressing Goal: Return ADL status to a safe level of function Outcome: Progressing Goal: Ability to perform activities at highest level will improve Outcome: Progressing Goal: Mobility, ROM and muscle strength will improve Outcome: Progressing Problem: Gastrointestinal Goal: Minimal or absence of nausea and vomiting Outcome: Progressing Goal: Maintains or returns to baseline bowel function Outcome: Progressing Goal: Maintains adequate nutritional intake Outcome: Progressing Problem: Genitourinary Goal: Urinary catheter remains patent Outcome: Progressing Problem: Infection Goal: Absence of infection during hospitalization Outcome: Progressing Problem: Metabolic/Fluid and Electrolytes Goal: Electrolytes maintained within normal limits Outcome: Progressing Goal: Hemodynamic stability and optimal renal function maintained Outcome: Progressing Problem: Discharge Planning Goal: Understanding discharge needs will improve Outcome: Progressing Problem: Activity Goal: Risk for activity intolerance and fatigue will decrease Outcome: Progressing Goal: Ability to tolerate increased activity will improve Outcome: Progressing Goal: Ability to avoid complications of mobility impairment will improve Outcome: Progressing Goals: Clinical Goals for the Shift: Mon. VS, I/O, pain, and maintain safe environment. [facility] Goal for Treatment: Get better and go home Summary: Pt resting comfortably in bed, set up for breakfast. PAN CHARGER * Plan of Care - Mauricio Esparza RN - 10/12/2024 6:52 AM DRY PAN CHARGER Goals: Clinical Goals for the Shift: VSS, monitor labs, management of pain, remain free from falls, promote rest and comfort [facility] Goal for Treatment: Get better and go home Summary: Problem: Lack of Knowledge Goal: Ability to develop a pain control plan will improve Outcome: Progressing Problem: Medication Goal: Satisfaction with pain management medication regimen will improve Outcome: Progressing Problem: Medication Goal: Satisfaction with pain management medication regimen will improve Outcome: Progressing Problem: Sensory Goal: Ability to identify factors that increase pain levels will improve while working to decrease the patient's pain levels Outcome: Progressing Problem: Sensory Goal: Ability to identify factors that increase pain levels will improve while working to decrease the patient's pain levels Outcome: Progressing Problem: Coping Goal: Ability to cope will improve Outcome: Progressing Problem: Coping Goal: Ability to cope will improve Outcome: Progressing Problem: Skin Integrity Impairment Risk Goal: Mobility will improve Outcome: Progressing Goal: Risk for impaired skin integrity will decrease Outcome: Progressing Problem: Skin Integrity Impairment Risk Goal: Mobility will improve Outcome: Progressing Problem: Skin Integrity Impairment Risk Goal: Risk for impaired skin integrity will decrease Outcome: Progressing PAN CHARGER * Plan of Care - Neville Larson - 10/11/2024 9:44 PM CST Problem: Lack of Knowledge Goal: Ability to develop a pain control plan will improve Outcome: Progressing Problem: Medication Goal: Satisfaction with pain management medication regimen will improve Outcome: Progressing Problem: Coping Goal: Ability to cope will improve Outcome: Progressing Problem: Health Behavior Goal: Identification of resources available to assist in meeting health care needs will improve Outcome: Progressing Problem: Skin Integrity Impairment Risk Goal: Mobility will improve Outcome: Progressing Goal: Understanding of ways to prevent future skin breakdown will improve Outcome: Progressing Goal: Nutritional status will improve Outcome: Progressing Goal: Risk for impaired skin integrity will decrease Outcome: Progressing Problem: Fall Risk Goal: Ability to state ways to decrease the risk of falls will improve Outcome: Progressing Goal: Will remain free from falls Outcome: Progressing Goal: Will remain free from injury from falls Outcome: Progressing Goals: Clinical Goals for the Shift: VSS, monitor labs, management of pain, remain free from falls, promote rest and comfort [facility] Goal for Treatment: Get better and go home Summary: VSS, A&O x4, controlled pain with pain medications. Pt resting between care. Fall precautions in place. Call light in reach. PAN CHARGER * Plan of Care - Neha Velasquez RN - 10/11/2024 12:46 PM DRY PAN CHARGER Goals: Clinical Goals for the Shift: VSS, monitor labs, management of pain, remain free from falls, promote rest and comfort [facility] Goal for Treatment: Get better and go home Summary: Problem: Lack of Knowledge Goal: Ability to develop a pain control plan will improve Outcome: Progressing Flowsheets (Taken 10/11/2024 1246) Ability to develop a pain control plan will improve: Explain causes of pain and how long pain can be expected to last Teach information regarding pain management Educate pain scale for assessing level of pain Teach notification to healthcare provider of episodes of pain Problem: Medication Goal: Satisfaction with pain management medication regimen will improve Outcome: Progressing Problem: Sensory Goal: Ability to identify factors that increase pain levels will improve while working to decrease the patient's pain levels Outcome: Progressing Problem: Coping Goal: Ability to cope will improve Outcome: Progressing Problem: Health Behavior Goal: Identification of resources available to assist in meeting health care needs will improve Outcome: Progressing Problem: Skin Integrity Impairment Risk Goal: Mobility will improve Outcome: Progressing Goal: Understanding of ways to prevent future skin breakdown will improve Outcome: Progressing Goal: Nutritional status will improve Outcome: Progressing Goal: Risk for impaired skin integrity will decrease Outcome: Progressing Problem: Fall Risk Goal: Ability to state ways to decrease the risk of falls will improve Outcome: Progressing Goal: Will remain free from falls Outcome: Progressing Goal: Will remain free from injury from falls Outcome: Progressing Problem: Neurosensory Goal: Achieves stable or improved neurological status Outcome: Progressing Goal: Achieves maximal functionality and self care Outcome: Progressing Problem: Respiratory Goal: Achieves optimal ventilation and oxygenation Outcome: Progressing Problem: Cardiovascular Goal: Maintains optimal cardiac output and hemodynamic stability Outcome: Progressing Goal: Absence of cardiac dysrhythmias or at baseline Outcome: Progressing Problem: Skin/Tissue Integrity Goal: Skin integrity remains intact Outcome: Progressing Goal: Incisions, wounds, or drain sites healing without S/S of infection Outcome: Progressing Goal: Oral mucous membranes remain intact Description: Outcome: Progressing Problem: Musculoskeletal Goal: Return mobility to safest level of function Outcome: Progressing Goal: Maintain proper alignment of affected body part Outcome: Progressing Goal: Return ADL status to a safe level of function Outcome: Progressing Goal: Ability to perform activities at highest level will improve Outcome: Progressing Goal: Mobility, ROM and muscle strength will improve Outcome: Progressing Problem: Gastrointestinal Goal: Minimal or absence of nausea and vomiting Outcome: Progressing Goal: Maintains or returns to baseline bowel function Outcome: Progressing Goal: Maintains adequate nutritional intake Outcome: Progressing Problem: Genitourinary Goal: Urinary catheter remains patent Outcome: Progressing Problem: Infection Goal: Absence of infection during hospitalization Outcome: Progressing Problem: Metabolic/Fluid and Electrolytes Goal: Electrolytes maintained within normal limits Outcome: Progressing Goal: Hemodynamic stability and optimal renal function maintained Outcome: Progressing Problem: Discharge Planning Goal: Understanding discharge needs will improve Outcome: Progressing Problem: Activity Goal: Risk for activity intolerance and fatigue will decrease Outcome: Progressing Goal: Ability to tolerate increased activity will improve Outcome: Progressing Goal: Ability to avoid complications of mobility impairment will improve Outcome: Progressing PAN CHARGER * Plan of Care - Marla Larson RN - 10/11/2024 9:58 AM CST Per Rounds: Possible restart heparin infusion ADD: 10/12 vs 10/13 [facility] & ref[facility] Patient's Identified Problem/Goal Problem: Ensure acute medical needs are met and patient has a safe discharge plan. Goal: Secure a discharge plan that patient/family are agreeable with and ensure patient has continuum of care. Acute Care Assistant will continue to follow and assist with discharge planning as needed PAN CHARGER * Plan of Care - LarsonNeville - 10/10/2024 10:09 PM CST Problem: Lack of Knowledge Goal: Ability to develop a pain control plan will improve Outcome: Progressing Problem: Medication Goal: Satisfaction with pain management medication regimen will improve Outcome: Progressing Problem: Sensory Goal: Ability to identify factors that increase pain levels will improve while working to decrease the patient's pain levels Outcome: Progressing Problem: Coping Goal: Ability to cope will improve Outcome: Progressing Problem: Health Behavior Goal: Identification of resources available to assist in meeting health care needs will improve Outcome: Progressing Problem: Skin Integrity Impairment Risk Goal: Mobility will improve Outcome: Progressing Goal: Understanding of ways to prevent future skin breakdown will improve Outcome: Progressing Goal: Nutritional status will improve Outcome: Progressing Goal: Risk for impaired skin integrity will decrease Outcome: Progressing Problem: Fall Risk Goal: Ability to state ways to decrease the risk of falls will improve Outcome: Progressing Goal: Will remain free from falls Outcome: Progressing Goal: Will remain free from injury from falls Outcome: Progressing Problem: Neurosensory Goal: Achieves stable or improved neurological status Outcome: Progressing Goal: Achieves maximal functionality and self care Outcome: Progressing Problem: Skin/Tissue Integrity Goal: Skin integrity remains intact Outcome: Progressing Goal: Incisions, wounds, or drain sites healing without S/S of infection Outcome: Progressing Goal: Oral mucous membranes remain intact Description: Outcome: Progressing Goals: Clinical Goals for the Shift: q4 VS, NC, OOB, pain control Summary: VSS, A&O x4, controlled pain with pain medications. Pt resting between care. Fall precautions in place. Call light in reach. PAN CHARGER * Consults, Subsequent - Claudia Ryan NP - 10/10/2024 3:48 PM DRY PAN CHARGER Images from the original note were not included. Hematology Progress Note Subjective Patient name: Lili Delgado : 1950 Reason for consult: management of post-op acute RLE DVT, possible IVC filter placement Past Medical History: Diagnosis Date Back pain BPH (benign prostatic hyperplasia) CKD (chronic kidney disease) stage 3, GFR 30-59 ml/min (HCC) Obesity Renal cyst Past Surgical History: Procedure Laterality Date LUMBAR SPINE SURGERY 2020 L4/L5 SPINAL CORD STIMULATOR IMPLANT 2023 SPINE SURGERY 2010 TUMOR REMOVAL 2020 bladder tumor excision Medications Prior to Admission Medication Sig Dispense Refill Last Dose/Taking baclofen (LIORESAL) 10 mg tablet Take 1 tablet (10 mg total) by mouth 2 (two) times a day 10/01/[address] (CYMBALTA) 30 mg capsule Take 1 capsule (30 mg total) by mouth 2 (two) times a day 10/01/2024 finasteride (PROSCAR) 5 mg tablet Take 1 tablet (5 mg total) by mouth every morning 10/01/2024 mupirocin (BACTROBAN) 2 % ointment Apply to each nostril 2 (two) times a day Apply pea size amount into each nostril twice a day for 5 days prior to surgery. 22 g 0 10/01/2024 Saccharomyces boulardii (Florastor) 250 mg capsule Take 1 capsule (250 mg total) by mouth every morning 10/01/2024 tamsulosin (FLOMAX) 0.4 mg extended release capsule Take 1 capsule (0.4 mg total) by mouth nightly 10/01/2024 traMADoL (ULTRAM) 50 mg tablet Take 1 tablet (50 mg total) by mouth every 8 (eight) hours as neededfor pain More than a month Allergies Allergen Reactions Sulfa Unknown Childhood reaction - unknown what reaction occurred Social History Tobacco Use Smoking status: Never Passive exposure: Never Smokeless tobacco: Never Substance and Sexual Activity Drug use: Never Sexual activity: Defer Alcohol Use: Not At Risk (10/02/2024) AUDIT-C Frequency of Alcohol Consumption: Never Average Number of Drinks: Patient does not drink Frequency of Binge Drinking: Never No family history on file. Objective Vitals: Vitals: 10/10/24 1520 BP: 105/60 Pulse: 61 Resp: 16 Temp: 36.4 ??C (97.5 ??F) SpO2: 95% 24hr Min/Max: Temp Min: 36.3 ??C (97.3 ??F) Max: 36.9 ??C (98.5 ??F) Pulse Min: 51 Max: 61 BP Min: 104/50 Max: 138/70 Resp Min: 14 Max: 16 SpO2 Min: 95 % Max: 99 % Lab/Radiology/Diagnostic Review: Recent Labs Lab Units 10/10/24 03110/09/24204010/08/24221410/07/242218 SODIUM mmol/L 141 -- 141 142 POTASSIUM PLASMA mmol/L 4.2 -- 4.6 4.5 CHLORIDE mmol/L 106 -- 107 107 CO2 mmol/L 27 -- 25 26 BUN SERUM mg/dL 34* -- 33* 33* CREATININE mg/dL 1.38* -- 1.33* 1.21 GLUCOSE mg/dL 95 -- 108 140 POC GLUCOSE MONITOR mg/dL -- 141 -- -- CALCIUM mg/dL 8.5 -- 8.6 8.5 PHOSPHORUS PLASMA mg/dL -- -- 3.1 -- Recent Labs Lab Units 10/10/24 11510/10/2431810/08/242214 WBC K/cumm 21.0* 18.6* 19.8* HEMOGLOBIN g/dL 12.0* 11.7* 11.2* HEMATOCRIT % 36.7* 35.3* 32.9* PLATELETS K/cumm 272 234 264 Hematology Lab History Latest Ref Rng & Units 10/06/2024 21:16 10/07/2024 22:19 10/08/2024 22:15 10/10/2024 Labs - Hematology WBC 3.8 - 9.9 K/cumm 17.1 17.2 19.8 21.0 Total Hb, POC 13.0 - 17.5 g/dL 10.8 11.4 11.2 12.0 Hct 38.9 - 50.3 % 30.7 32.7 32.9 36.7 Plt 150 - 400 K/cumm 256 264 264 272 Details More abnormal values are hidden. Newest values shown. Go to activity for more data. More values are hidden. Newest values shown. Go to activity for more data. Chem/LFT Lab History Latest Ref Rng & Units 10/06/2024 21:16 10/07/2024 22:19 10/08/2024 22:15 10/10/2024 03:19 Labs-Chem/LFT Sodium 135 - 145 mmol/L 140 142 141 141 Creatinine 0.80 - 1.30 mg/dL 1.22 1.21 1.33 1.38 Bilirubin, total 0.1 - 1.2 mg/dL 0.3 AST 10 - 50 Units/L 19 ALT 7 - 55 Units/L 39 Alk phos 40 - 130 Units/L 49 CrCl- Actual Body Weight (Cockcroft-Gault) 76 76.6 69.7 67.2 Principal Problem: Thoracic myelopathy Assessment and Plan Patient is a 74 y.o., male with a history of BPH, CKD, obesity, chronic lower back pain s/p prior spinal surgery (2020 and 2010) and spinal cord stimulator placement 11/2023, hx of DVT 2020 in the setting of PICC line and was reportedly tx with AC x6 months, who presented to [facility] for T3-5 laminectomy/ decompression and intradural arachnoid web resection by Dr Robles on 10/02/2024. He was found to have an acute DVT in RLE (popliteal vein) on venous dopplers from 10/09/2024 (today). Hematology consulted for recommendations and to inquire about IVC filter placement. Recommended starting therapeutic anticoagulation as long as safe from surgery standpoint (load withApixaban 10mg BID x7 days then 5mg BID PO). Recommended against placement of IVC filter as long as patient able to be started on therapeutic anticoagulated within the next few days. In addition to possible IVC filter procedure related complications (bleeding, filter malposition, filter erosion and damage to blood vessels), IVC filter may increased clot burden in LE. In absence of anticoagulation, patient may develop IVC thrombosis which can result in increased LE pain and swelling. IVC filter can also clot off and increase the risk of a PE. If IVC filter placed, recommend IVC filter retrieval as soon as patient is able to be on therapeutic anticoagulation (ideally, should be removed within 3 months from placement to avoid complications) Primary team reached put today stating that patient can be started on therapeutic anticoagulation starting 10/16/2024. He is currently on Enoxaparin 30mg daily for ppx. Today, I am treating the patient for acute RLE DVT in setting of surgery. Information obtained frompatient and chart. Reviewed available notes to determine appropriate treatment plan. Independently interpreted most recent labs which show WBC 21 Hgb 12 Plt 272,000. Patient has a hx of prior DVT from 2020, in the setting of PICC line tx with anticoagulation x6 months. This is his 2nd event. Although provoked, given two events, indefinite therapeutic anticoagulation is warranted. Heme f/u with Dr Salmon has been requested. Complex medical decision making involved. Discussed test interpretation and recommendations with primary team. Recommendations: - would not recommend placement of IVC filter due to concerns mentioned in note Based on conversation with primary team, patient may start therapeutic anticoagulation on 10/16/2024 (2wks post surgery). However, given relatively high concern for bleeding complications in the setting of recent spinal surgery, they would not feel comfortable starting him on Apixaban 5mg BID without a Heparin gtt trial first (at a lower PTT goal set by primary team). Per primary team, patient expected to stay inpatient until switched to Apixaban May consider: Enoxaparin 30mg BID---> 10/16/2024 Heparin gtt [id number]---> if no bleeding concerns, switch to Apixaban 5mg BID Vs. Heparin gtt with PTT goal per primary team and no bolus--->10/16/2024 Heparin gtt with standard PTT goal 60-90 [id number]---> Apixaban 5mg BID if no concern for bleeding while on Heparin gtt Repeat LE US on (10/12/2024) PM or Wednesday (10/13/2024) AM to re-assess thrombus size (at risk for increase in clot burden given that he is unable to be on therapeutic anticoagulation). We will continue to follow peripherally. This case was discussed with my attending physician Dr Calles, who agrees with the above mentioned assessment and plan. Please do not hesitate to call with questions or concerns. Pg [phone] Weekdays 8AM-4PM. Weeknights 4PM - 8AM, all day on Weekends, all day on holidays and my days off work, please contactthe on-call fellow at [phone] For patients or family members viewing this note through [employer] programs. This note was written as a communication tool between healthcare providers and may contain technical language, terminology and abbreviations that is difficult to interpret without advanced medical training. If you have questions or concerns regarding what is written in this note, please contact ouroffice or, if you or your family member is admitted to the hospital, the primary team responsible for your care. Please do not call the cell or pager numbers listed in this note, as the provider theyare associated with may no longer be involved in your care. Claudia Ryan NP Department of Hematology 10/10/2024 3:48 PM Cosigned by Sherry Calles MD at 10/13/2024 2:48 PM DRY PAN CHARGER PAN CHARGER PAN CHARGER * Significant Event - Anibal Camacho MD - 10/10/2024 9:45 AM DRY PAN CHARGER Interventional Radiology Consult Resolution Note Reason for Consult: IVC filter Assessment and Plan: 74M with back pain s/p T3-5 posterior decompression and arachnoid cyst fenestration 10/02 with right popliteal vein DVT. Heme recommending therapeutic AC, further discussion with the neurosurgery team will defer IVC filter for now as patient is cleared to start AC 2 weeks postoperative. As discussed with Dr. Robles on October 10, 2024, the prior consult request has been closed and the order cancelled in Epic. Thank you for the opportunity to participate in this patient's care. If the clinical situation changes, a new consult request will be needed. This consult request was discussed with Dr. Huntley, the IR Attending. PAN CHARGER * Plan of Care - Marla Larson RN - 10/10/2024 8:55 AM CST Per Rounds: patient with DVT. Therapeutic AC vs IVC filter. ADD: 10/12 Plan & referrals made/in place: [facility] following. Notified liaison Lachelle of updated ADD Patient's Identified Problem/Goal Problem: Ensure acute medical needs are met and patient has a safe discharge plan. Goal: Secure a discharge plan that patient/family are agreeable with and ensure patient has continuum of care. Acute Care Assistant will continue to follow and assist with discharge planning as needed PAN CHARGER * Plan of Care - Neville Larson - 10/09/2024 11:34 PM CST Problem: Medication Goal: Satisfaction with pain management medication regimen will improve Outcome: Progressing Problem: Lack of Knowledge Goal: Ability to develop a pain control plan will improve Outcome: Progressing Problem: Sensory Goal: Ability to identify factors that increase pain levels will improve while working to decrease the patient's pain levels Outcome: Progressing Problem: Coping Goal: Ability to cope will improve Outcome: Progressing Problem: Health Behavior Goal: Identification of resources available to assist in meeting health care needs will improve Outcome: Progressing Problem: Skin Integrity Impairment Risk Goal: Mobility will improve Outcome: Progressing Goal: Understanding of ways to prevent future skin breakdown will improve Outcome: Progressing Goal: Nutritional status will improve Outcome: Progressing Goal: Risk for impaired skin integrity will decrease Outcome: Progressing Goals: Clinical Goals for the Shift: q4 VS, NC, OOB, pain control Summary: VSS, A&O x4, controlled pain with pain medications. Pt resting between care. Fall precautions in place. Call light in reach. PAN CHARGER * Plan of Care - Geovanni Bell RN - 10/09/2024 5:09 PM CST Goals: Clinical Goals for the Shift: q4 VS, NC, OOB, pain control Problem: Lack of Knowledge Goal: Ability to develop a pain control plan will improve 10/09/2024 1709 by Geovanni Bell, RN Outcome: Progressing 10/09/20241708 by Geovanni Bell RN Outcome: Progressing Problem: Medication Goal: Satisfaction with pain management medication regimen will improve 10/09/20241708 by Geovanni Bell RN Outcome: Progressing 10/09/20241708 by Geovanni Bell RN Outcome: Progressing Problem: Sensory Goal: Ability to identify factors that increase pain levels will improve while working to decrease the patient's pain levels 10/09/20241708 by Geovanni Bell RN Outcome: Progressing 10/09/20241708 by Geovanni Bell RN Outcome: Progressing Problem: Coping Goal: Ability to cope will improve 10/09/20241708 by Geovanni Bell RN Outcome: Progressing 10/09/20241708 by Geovanni Bell RN Outcome: Progressing Problem: Health Behavior Goal: Identification of resources available to assist in meeting health care needs will improve 10/09/20241708 by Geovanni Bell RN Outcome: Progressing 10/09/20241708 by Geovanni Bell RN Outcome: Progressing Problem: Skin Integrity Impairment Risk Goal: Mobility will improve 10/09/20241708 by Geovanni Bell RN Outcome: Progressing 10/09/20241708 by Geovanni Bell RN Outcome: Progressing Goal: Understanding of ways to prevent future skin breakdown will improve 10/09/20241708 by Geovanni Bell RN Outcome: Progressing 10/09/20241708 by Geovanni Bell RN Outcome: Progressing Goal: Nutritional status will improve 10/09/20241708 by Geovanni Bell RN Outcome: Progressing 10/09/20241708 by Geovanni Bell RN Outcome: Progressing Goal: Risk for impaired skin integrity will decrease 10/09/20241708 by Geovanni Bell RN Outcome: Progressing 10/09/20241708 by Geovanni Bell RN Outcome: Progressing Problem: Fall Risk Goal: Ability to state ways to decrease the risk of falls will improve 10/09/20241708 by Geovanni Bell RN Outcome: Progressing 10/09/20241708 by Geovanni Bell RN Outcome: Progressing Goal: Will remain free from falls 10/09/20241708 by Geovanni Bell RN Outcome: Progressing 10/09/20241708 by Geovanni Bell RN Outcome: Progressing Goal: Will remain free from injury from falls 10/09/20241708 by Geovanni Bell RN Outcome: Progressing 10/09/20241708 by Geovanni Bell RN Outcome: Progressing Problem: Neurosensory Goal: Achieves stable or improved neurological status 10/09/20241708 by Geovanni Bell RN Outcome: Progressing 10/09/20241708 by Geovanni Bell RN Outcome: Progressing Goal: Achieves maximal functionality and self care Outcome: Progressing Problem: Respiratory Goal: Achieves optimal ventilation and oxygenation Outcome: Progressing Problem: Cardiovascular Goal: Maintains optimal cardiac output and hemodynamic stability Outcome: Progressing Goal: Absence of cardiac dysrhythmias or at baseline Outcome: Progressing Problem: Skin/Tissue Integrity Goal: Skin integrity remains intact Outcome: Progressing Goal: Incisions, wounds, or drain sites healing without S/S of infection Outcome: Progressing Goal: Oral mucous membranes remain intact Description: Outcome: Progressing Problem: Musculoskeletal Goal: Return mobility to safest level of function Outcome: Progressing Goal: Maintain proper alignment of affected body part Outcome: Progressing Goal: Return ADL status to a safe level of function Outcome: Progressing Goal: Ability to perform activities at highest level will improve Outcome: Progressing Goal: Mobility, ROM and muscle strength will improve Outcome: Progressing Problem: Gastrointestinal Goal: Minimal or absence of nausea and vomiting Outcome: Progressing Goal: Maintains or returns to baseline bowel function Outcome: Progressing Goal: Maintains adequate nutritional intake Outcome: Progressing Problem: Genitourinary Goal: Urinary catheter remains patent Outcome: Progressing Problem: Infection Goal: Absence of infection during hospitalization Outcome: Progressing Problem: Metabolic/Fluid and Electrolytes Goal: Electrolytes maintained within normal limits Outcome: Progressing Goal: Hemodynamic stability and optimal renal function maintained Outcome: Progressing Problem: Discharge Planning Goal: Understanding discharge needs will improve Outcome: Progressing Problem: Activity Goal: Risk for activity intolerance and fatigue will decrease Outcome: Progressing Goal: Ability to tolerate increased activity will improve Outcome: Progressing Goal: Ability to avoid complications of mobility impairment will improve Outcome: Progressing PAN CHARGER * Plan of Care - Marla Larson RN - 10/09/2024 9:19 AM CST Per Rounds: Zheng replaced. EGK for chest pain. Chest x-rays, dopplers. ADD: 10/10 Plan & referrals made/in place: [facility] following. Patient's Identified Problem/Goal Problem: Ensure acute medical needs are met and patient has a safe discharge plan. Goal: Secure a discharge plan that patient/family are agreeable with and ensure patient has continuum of care. Acute Care Assistant will continue to follow and assist with discharge planning as needed PAN CHARGER * Plan of Care - Sia Mathias RN - 10/08/2024 3:47 PM CST Goals: Clinical Goals for the Shift: q4 VS, NC, OOB, pain control Summary: pain well controlled, pt reports improvement in RLE weakness, goal to get up to chair today; pt declined. EKG + Trops. New dressing per MD. Problem: Skin/Tissue Integrity Goal: Incisions, wounds, or drain sites healing without S/S of infection 10/08/2024 1547 by Sia Mathias RN Outcome: Progressing Flowsheets (Taken 10/08/2024 0900) Incision(s), Wound(s) or Drain Site(s) healing without S/S of infection: Assess and document dressing/incision, wound bed, drain sites and surrounding tissue Problem: Cardiovascular Goal: Maintains optimal cardiac output and hemodynamic stability 10/08/2024 1547 by Sia Mathias RN Outcome: Progressing Flowsheets (Taken 10/08/2024 0900) Maintain optimal cardiac output and hemodynamic Stability: Monitor vital signs, rhythm, and trends PAN CHARGER * Plan of Care - Geovanni Bell RN - 10/07/2024 5:25 PM CST Goals: Clinical Goals for the Shift: void trial, pain control, turning Problem: Lack of Knowledge Goal: Ability to develop a pain control plan will improve Outcome: Progressing Problem: Medication Goal: Satisfaction with pain management medication regimen will improve Outcome: Progressing Problem: Sensory Goal: Ability to identify factors that increase pain levels will improve while working to decrease the patient's pain levels Outcome: Progressing Problem: Coping Goal: Ability to cope will improve Outcome: Progressing Problem: Health Behavior Goal: Identification of resources available to assist in meeting health care needs will improve Outcome: Progressing Problem: Skin Integrity Impairment Risk Goal: Mobility will improve Outcome: Progressing Goal: Understanding of ways to prevent future skin breakdown will improve Outcome: Progressing Goal: Nutritional status will improve Outcome: Progressing Goal: Risk for impaired skin integrity will decrease Outcome: Progressing Problem: Fall Risk Goal: Ability to state ways to decrease the risk of falls will improve Outcome: Progressing Goal: Will remain free from falls Outcome: Progressing Goal: Will remain free from injury from falls Outcome: Progressing Problem: Neurosensory Goal: Achieves stable or improved neurological status Outcome: Progressing Goal: Achieves maximal functionality and self care Outcome: Progressing Problem: Respiratory Goal: Achieves optimal ventilation and oxygenation Outcome: Progressing Problem: Cardiovascular Goal: Maintains optimal cardiac output and hemodynamic stability Outcome: Progressing Goal: Absence of cardiac dysrhythmias or at baseline Outcome: Progressing Problem: Skin/Tissue Integrity Goal: Skin integrity remains intact Outcome: Progressing Goal: Incisions, wounds, or drain sites healing without S/S of infection Outcome: Progressing Goal: Oral mucous membranes remain intact Description: Outcome: Progressing Problem: Musculoskeletal Goal: Return mobility to safest level of function Outcome: Progressing Goal: Maintain proper alignment of affected body part Outcome: Progressing Goal: Return ADL status to a safe level of function Outcome: Progressing Goal: Ability to perform activities at highest level will improve Outcome: Progressing Goal: Mobility, ROM and muscle strength will improve Outcome: Progressing Problem: Gastrointestinal Goal: Minimal or absence of nausea and vomiting Outcome: Progressing Goal: Maintains or returns to baseline bowel function Outcome: Progressing Goal: Maintains adequate nutritional intake Outcome: Progressing Problem: Genitourinary Goal: Urinary catheter remains patent Outcome: Progressing Problem: Infection Goal: Absence of infection during hospitalization Outcome: Progressing Problem: Metabolic/Fluid and Electrolytes Goal: Electrolytes maintained within normal limits Outcome: Progressing Goal: Hemodynamic stability and optimal renal function maintained Outcome: Progressing Problem: Discharge Planning Goal: Understanding discharge needs will improve Outcome: Progressing PAN CHARGER * Plan of Care - Skinny Dubose RN - 10/06/2024 11:17 AM CST Problem: Lack of Knowledge Goal: Ability to develop a pain control plan will improve Outcome: Progressing Flowsheets (Taken 10/06/2024 1100) Ability to develop a pain control plan will improve: Explain causes of pain and how long pain can be expected to last Problem: Sensory Goal: Ability to identify factors that increase pain levels will improve while working to decrease the patient's pain levels Outcome: Progressing Flowsheets (Taken 10/06/2024 1100) Ability to identify factors that increase pain levels will improve while working to decrease patients pain levels: Assess pain status Problem: Coping Goal: Ability to cope will improve Outcome: Progressing Flowsheets (Taken 10/06/2024 1116) Ability to cope will Improve: Encourage vebalization of feelings surrounding pain Perform depression screening Problem: Health Behavior Goal: Identification of resources available to assist in meeting health care needs will improve Outcome: Progressing Flowsheets (Taken 10/06/2024 1100) Identification of resources available to assist in meeting health care needs will improve: Refer topain support group Problem: Skin Integrity Impairment Risk Goal: Mobility will improve Outcome: Progressing Flowsheets (Taken 10/06/2024 1100) Mobility will improve: Encourage turning and repositioning, assist as needed Goal: Understanding of ways to prevent future skin breakdown will improve Outcome: Progressing Flowsheets (Taken 10/06/2024 1116) Understanding of ways to prevent future skin breakdown will improve: Discuss treatments to protect skin integrity Goal: Nutritional status will improve Recent Flowsheet Documentation Taken 10/06/2024 1100 by Skinny Dubose RN Nutritional status will improve: Encourage nutritional intake Problem: Fall Risk Goal: Ability to state ways to decrease the risk of falls will improve Outcome: Progressing Flowsheets (Taken 10/06/2024 1116) Ability to state ways to decrease the risk of falls will improve: Teach fall prevention measures Teach information regarding appropriate enviornmental changes Goal: Will remain free from falls Recent Flowsheet Documentation Taken 10/06/2024 1100 by Skinny Dubose RN Will remain free from falls: Implement fall prevention measures Problem: Neurosensory Goal: Achieves stable or improved neurological status Recent Flowsheet Documentation Taken 10/06/2024 1100 by Skinny Dubose RN Achieves Stable or Improved Neurological Status: Assess for and report changes in neurological status Goal: Achieves maximal functionality and self care Recent Flowsheet Documentation Taken 10/06/2024 1100 by Skinny Dubose RN Achieves maximal functionality and self care: Monitor swallowing and airway patency with patient fatigue and changes in neurological status Goals: Clinical Goals for the Shift: v/s, pain control, I & O , safety, drain , Summary: Pt alert and oriented * 4, v/s stable, pain control with tyrnelol, oxycodone, carleen lift, will continue to monitor. PAN CHARGER * Plan of Care - Marla Larson RN - 10/06/2024 10:57 AM DRY PAN CHARGER Acute Care Assistant noted patient has been recommended for Inpatient Rehab by PT/OT. Acute Care Assistant met withthe patient at bedside to discuss recommendations by therapy and to work on a potential discharge disposition plan. Acute Care Assistant provided education to patien on the rehabilitation process. Patient reported being interested in placement for rehabilitation. promotions firm accounts manager provided a list of Inpatient Rehab Facility choices to patient. [facility] manager sent out additional referrals via [facility]. CM awaiting acceptance from an Inpatient Rehab Facility and will continue to work on discharge planning with patient and family. PAN CHARGER * ECIN Note - Marla Larson RN - 10/06/2024 10:57 AM CST Patient Information: Wound Info Only Active Wound Assessment Active Wound / Pressure injury / [place] / Negative Pressure Wound / Incision Wound 10/02/24 Incision Spine Mid-line Date First Assessed 10/02/24 Site Spine Time First Assessed 0918 Days 4 Present on Original Admission: N Primary Wound Type: Incision Location Orientation: Mid-line Assessments Row Name 10/06/24 0846 10/05/24202810/05/24199910/05/2479910/04/241999 Dressing Status Clean/Dry/Intact Clean/Dry/Intact Clean/Dry/Intact Clean/Dry/Intact Clean/Dry/Intact Site Assessment JOÃO JOÃO JOÃO JOÃO JOÃO Drainage Amount None None None None None Estrella-wound Assessment -- JOÃO Color appropriate for ethnicity;Dry -- Dry;Intact Dressing Ioban Gauze;Ioban Ioban -- -- Margins -- JOÃO JOÃO -- -- Closure -- Unable to assess Unable to assess Unable to assess Unable to assess PAN CHARGER * ECIN Note - Marla Larson RN - 10/06/2024 10:56 AM CST Images from the original note were not included. Patient Information: OT Eval and Treat Last 72 Hours OT Evaluation Row Name 10/04/24 1108 Chart Reviewed Yes - Session Type Evaluation - OT Received On 10/04/24 - Safe Environment Arm band checked;Patient found in supine;Gait belt utilized for all out of bed mobility - Subjective Agreeable to Therapy - Family/Caregiver Present No - Occupational Therapy-Patient Goal pt was agreeable to OT suggested short term goals - Precautions Fall risk - Type of Home House - Home Layout Able to live on main level with bedroom/bathroom - Bathroom Shower/Tub Walk-in shower with threshold - Bathroom Equipment Built-in shower seat;Grab bars in shower/tub - Home Mobility Equipment-Available Wheeled walker;4-Wheeled walker - Home Mobility Equipment-Currently Using Wheeled walker - Level of [place] Independent with ADLs;Independent with ambulation;Needs assistance with homemaking Indp with ADLs with ww except assist for lower body dressing - Lives With Spouse - Receives Help From Spouse/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 Pt reports he bent over to pick a tissue up off theground and next thing I knew, I was on the ground. - ADLS (WDL) X - Grooming: Where assessed Chair - Grooming: Level of assistance Maximum Assist - Grooming: Assistance with Reaching all areas of head/face min for task, total for balance - LE Dressing: Where assessed Edge of bed - LE Dressing: Level of assistance Dependent - Toileting: Where assessed -- edge of bed - Toileting: Level of assistance Maximum Assist - Toileting: Assistance with Clothing management down;Clothing management up;Perineal hygiene;Anterior;Posterior task simulated; 1/4 (able to manipulate wipes) for task, max for standing balance - Toilet Transfers Comments NT 2/2 safety concern. - Pain Assessment 0-10 -CH Pain Score 3 -CH Pain Location Back (Cervical) - Pain Interventions Repositioned - Arousal/Alertness Alert;Appropriate responses to stimuli - Attention Span Controlled environment;Difficulty dividing attention - Memory -- recalls 4/5 items after 2 minute delay - Orientation Oriented X4 (person, place, time, situation) - Following Commands Follows all commands and directions without difficulty - Safety Judgment Good awareness of safety precautions - Compliance/Behavior Easy to engage - What year is it now? 0 -CH What month is it now? 0 - Repeat this name and address after me Jeffrey Adams [address] [place] [address] - Without looking at the clock, tell me what time it is 3 -CH Count aloud backwards from 20-1 0 - Say the months of the year backwards in reverse order 0 - Repeat the name and address I asked you to remember 2 -CH Short Blessed Total Score 5 -CH Light Touch WFL BUE -CH Serial Opposition -- delayed in BUEs -CH Hand Preference Right -CH Gross Grasp -- 4/5 BUE -CH Sitting Balance 0 -CH Arises 0 -CH Attempts to Arise 0 -CH Immediate Standing Balance (First 5 Seconds) 0 -CH Standing Balance 0 -CH Nudged 0 -CH Eyes Closed 0 -CH Turned 360 Degrees: Steadiness 0 -CH Turned 360 Degrees: Continuity of Steps 0 -CH Sitting Down 0 -CH Balance Score 0 -CH Static Sitting-Balance Support Unilateral upper extremity supported -CH Static Sitting-Sitting Surface Bed - Static Sitting-Level of Assistance Moderate assistance posterior lean -CH Static Standing-Balance Support Unilateral upper extremity supported -CH Static Standing-Level of Assistance Moderate assistance - Bed Mobility From 1 Supine -CH Bed Mobility Type 1 To - Bed Mobility to 1 Short sit;Edge of bed - Level of Assistance 1 Maximum Assist - Bed Mobility Comments 1 A to roll in sidelying, maneuver BLEs, elevate trunk, balance - Transfer From 1 Sit - Transfer Type 1 To and from - Transfer to 1 Stand - Technique 1 Stand to sit;Sit to stand - Transfer Device 1 Hand held assist - Transfer Level of Assistance 1 Maximum Assist A of 2 -CH Trials/Comments 1 A for force production, balance, controlled descent, blocking RLE - Trials/Comments 2 pt was transferred from bed to recliner with mechanical carleen lift with assist from OT and RN -CH RUE Assessment WFL - LUE Assessment WFL except shoulder flexion, limited ~90 degrees - Putting on and taking off regular lower body clothing 1 -CH Bathing 2 -CH Toileting 1 -CH Putting on and taking off upper body clothing 2 -CH Personal Grooming 2 -CH Eating Meals 3 - Total Score (range 6-24) 11 - Score Interpretation 29.04 - Safe Environment End of Therapy Session Patient left in recliner;Chair alarm in place and activated;RN notified;Call light within reach;Overbed table within reach - Problem List Decreased upper extremity strength;Decreased endurance;Decreased cognition;Decreased balance;Decreased functional mobility;Decreased ADL independence;Decreased IADL independence;Decreased gross motor control;Decreased UE function;Decreased trunk control for functional activities;Abnormal tone - Plan If this is the last note, consider this the discharge summary;Plan of care initiated - OT Recommendation Inpatient Rehab Facility - Patient at high risk for Falls;Readmission;Injury due to decreased ability to care for self;Injury due to reduced functional status;Injury at home as patient has not returned to prior level of function;Injury due to balance deficits;Developing impaired skin integrity;Prolonged dependence for self care tasks [facility] Recommend Inpatient Rehab/Acute Rehab due to Ability to actively participate in intensive therapy 3hours/day, 5 days/week or 900 minutes per week;Highly motivated to participate in therapy;Not at baseline due to impaired ability to complete ADLs;Impaired ability to complete functional mobility;Likely to return to the community at discharge with support system in place;Requires greater than 25% physical assistance with most mobility tasks;Requires greater than 25% physical assistance with most ADL tasks;Requires multiple therapy disciplines to address functional deficits;Requires skilled therapy interventions to address neurological deficits - OT Frequency during current admission 5-7x/wk - Treatment/Interventions during current admission ADL/IADL retraining;Balance Training;Bed mobility;Compensatory technique education;Endurance training;Equipment eval/education;Functional activity;Functional mobility training;Functional transfer training;Neuromuscular re- education;Parent/caregiver training and education;Positioning;Sensorimotor skills;Strengthening;Therapeutic activity;Therapeuticexercise;Transfer training;Upper extremity motor function/functional skills - OT - Next Appointment 10/05/24 - OT Evaluation Complete Yes - OT Start Time 1103 - OT Stop Time 1156 - OT Time Calculation (min) 53 min - User Cuellar (r) = Recorded By, (t) = Taken By, (c) = Cosigned By Initials Name Effective Dates Taty Quezada, OT 08/14/19 - OT Treatment No documentation. OT Notes 10/04/2024 1:09 PM Progress Notes signed by Taty Quezada OT , PT Eval and Treat Last 72 Hours PT Evaluation Row Name 10/04/24 7144 Chart Reviewed Yes -GM (r) LG (c) Session Type Evaluation -GM (r) LG (c) Safe Environment Arm band checked;Patient found sitting in chair;Session completed bedside;Gait belt utilized for all out of bed mobility -GM (r) LG (c) Subjective Agreeable to Therapy -GM (r) LG (c) Family/Caregiver Present Yes -GM (r) LG (c) Physical Therapy-Patient Goal Pt did not state any goals at this time -GM (r) LG (c) Precautions Fall risk -GM (r) LG (c) Type of Home House -GM (r) LG (c) Home Layout One level -GM (r) LG (c) Home Access Stairs to enter without rails -GM (r) LG (c) Entrance Stairs-Rails None -GM (r) LG (c) Entrance Stairs-Number of Steps 2 -GM (r) LG (c) Home Mobility Equipment-Available Wheeled walker;4-Wheeled walker -GM (r) LG (c) Home Mobility Equipment-Currently Using Wheeled walker -GM (r) LG (c) Level of [place] Independent with ADLs;Independent with ambulation;Needs assistance with homemaking -GM (r) LG (c) Lives With Spouse -GM (r) LG (c) Receives Help From Spouse/Significant other full time -GM (r) LG (c) Fall within the last 6 months Yes -GM (r) LG (c) Fall within the last 6 months comment 1x, Pt reports picking a tissue off from ground and fell -GM (r) LG (c) Pain Assessment 0-10 -GM (r) LG (c) Pain Score 4 -GM (r) LG (c) Pain Location Back (Cervical) -GM (r) LG (c) Pain Orientation Generalized -GM (r) LG (c) Pain Interventions RN Notified -GM (r) LG (c) Arousal/Alertness Alert -GM (r) LG (c) Orientation Oriented X4 (person, place, time, situation) -GM (r) LG (c) Following Commands Follows all commands and directions without difficulty -GM (r) LG (c) Light Touch Partial deficits in the RLE;Partial deficits in the LLE more on the left -GM (r) LG (c) Sensation Comments BL LE, skin intact -GM (r) LG (c) Balance Tests Yes -GM (r) LG (c) 1. Sitting to Standing 0 -GM (r) LG (c) 2. Standing Unsupported 0 -GM (r) LG (c) 3. Sitting with Back Unsupported but Feet Supported on Floor or on a Stool 0 -GM (r) LG (c) 4. Standing to Sitting 0 -GM (r) LG (c) 5. Transfers 0 -GM (r) LG (c) 6. Standing Unsupported with Eyes Closed 0 -GM (r) LG (c) 7. Standing Unsupported with Feet Together 0 -GM (r) LG (c) 8. Reach Forward with Outstretched Arm While Standing 0 -GM (r) LG (c) 9. Insurance Loss Adjuster Object from Floor from a Standing Position 0 -GM (r) LG (c) 10. Turning to Look Behind Over Left and Right Shoulders While Standing 0 -GM (r) LG (c) 11. Turn 360 Degrees 0 -GM (r) LG (c) 12. Place Alternate Foot on Step or Stool While Standing Unsupported 0 -GM (r) LG (c) 13. Standing Unsupported One Foot in Front 0 -GM (r) LG (c) 14. Standing on One Leg 0 -GM (r) LG (c) [place] Balance Score 0 -GM Balance Yes -GM (r) LG (c) Static Sitting-Balance Support Bilateral upper extremity supported;Feet supported -GM (r) LG (c) Static Sitting-Sitting Surface Chair -GM (r) LG (c) Static Sitting-Level of Assistance Moderate assistance -GM (r) LG (c) Static Sitting-Comment/# of Minutes Assistance to prevent posterior lean -GM (r) LG (c) Static Standing-Balance Support No upper extremity supported -GM (r) LG (c) Static Standing-Standing Surface Floor -GM (r) LG (c) Static Standing-Level of Assistance Moderate assistance -GM (r) LG (c) Static Standing-Comment/# of Minutes Assistance for balance -GM (r) LG (c) Bed Mobility Yes -GM (r) LG (c) Bed Mobility From 1 Edge of bed -GM (r) LG (c) Bed Mobility Type 1 To -GM (r) LG (c) Bed Mobility to 1 Supine -GM (r) LG (c) Level of Assistance 1 Moderate Assist -GM (r) LG (c) Bed Mobility Comments 1 Assistance for leg elevation -GM (r) LG (c) Transfer Yes -GM (r) LG (c) Transfer From 1 Sit -GM (r) LG (c) Transfer Type 1 To and from -GM (r) LG (c) Transfer to 1 Stand -GM (r) LG (c) Technique 1 Sit to stand;Stand to sit -GM (r) LG (c) Transfer Device 1 No device -GM (r) LG (c) Transfer Level of Assistance 1 Moderate Assist x2 -GM (r) LG (c) Trials/Comments 1 Assistance for decreased force production, BLE blocking, and balance -GM (r) LG (c) Transfer From 2 Chair with arms -GM (r) LG (c) Transfer Type 2 To -GM (r) LG (c) Transfer to 2 Bed -GM (r) LG (c) Technique 2 Stand pivot -GM (r) LG (c) Transfer Device 2 No device -GM (r) LG (c) Transfer Level of Assistance 2 Moderate Assist x2 -GM (r) LG (c) Trials/Comments 2 Assistance for balance, BL knee blocking and decreased force production -GM (r) LG (c) Ambulation No -GM (r) LG (c) Stairs No -GM (r) LG (c) RUE Assessment WFL -GM (r) LG (c) LUE Assessment WFL -GM (r) LG (c) RLE Assessment X -GM (r) LG (c) RLE Comments limited AROM due to tone, strength 3/5 -GM (r) LG (c) LLE Assessment X -GM (r) LG (c) LLE Comments Full AROM strength 3/5 -GM (r) LG (c) PT Treatment/Exercise Comments Seated marches 10x, heel slides on RLE 10x -GM (r) LG (c) How much difficulty does the patient have: Turning over in bed 2 -GM (r) LG (c) How much difficulty does the patient currently have: Sitting down and standing up from a chair witharms? 2 -GM (r) LG (c) How much difficulty does the patient have: Moving from lying on back to sitting on the side of the bed? 2 -GM (r) LG (c) How much difficulty does the patient have: Moving to and from a bed to a chair including wheelchair? 2 -GM (r) LG (c) How much help does the patient currently need: Walk in hospital room? 1 -GM (r) LG (c) How much help from another person does the patient currently need: Climbing 3-5 steps with a railing? 1 -GM (r) LG (c) Total 6 Click Score (range 6-24) 10 -GM Score Interpretation 28.13 -GM (r) LG (c) Problem List Reduced mobility;Gait deviations;Decreased strength;Decreased range of motion;Decreased endurance;Impaired balance;Decreased active flexion -GM (r) LG (c) Problem List Comments PT Diagnosis: T3-5 laminectomy and decompression, arachnoid cyst wall fenestration, results in above listed activity deficits and impairments which prevent full participation inhome and community mobility -GM (r) LG (c) Plan Plan of care initiated;If this is the last note, consider this the discharge summary -GM (r) LG (c) PT Recommendation/Plan Inpatient Rehab Facility -GM (r) LG (c) Patient at high risk for Falls;Readmission;Injury due to decreased ability to care for self;Injury due to reduced functional status;Injury due to balance deficits -GM (r) LG (c) Recommend Inpatient Rehab/Acute Rehab due to Ability to actively participate in intensive therapy 3hours/day, 5 days/week or 900 minutes per week;Highly motivated to participate in therapy;Not at baseline due to impaired ability to complete ADLs;Impaired ability to complete functional mobility;Requires greater than 25% physical assistance with most mobility tasks;Requires skilled therapy interventions to address neurological deficits -GM (r) LG (c) PT Frequency during current admission 3-5x/wk -GM (r) LG (c) Treatment/Interventions during current admission Balance Training;Bed mobility;Functional activity;Gait training;Neuromuscular re-education;Stair training;Strengthening;Therapeutic activity;Therapeutic exercise;Transfer training -GM (r) LG (c) PT Evaluation Complete Yes -GM (r) LG (c) PT Start Time 1437 -GM (r) LG (c) PT Stop Time 1517 -GM (r) LG (c) PT Time Calculation (min) 40 min -GM User Cuellar (r) = Recorded By, (t) = Taken By, (c) = Cosigned By Initials Name Effective Dates GM Nadia Moulton 08/01/24 - LG Arin Noriega, TREY [birth year] - PT TREATMENT (Last 168 Hours) PT Treatment Row Name 10/05/24 0934 PT Last Visit Session Type Treatment -DT Safe Environment Arm band checked;Patient found in supine;Session completed bedside;Gait belt utilized for all out of bed mobility -DT Subjective Agreeable to Therapy -DT Precautions Precautions Fall risk -DT Pain Assessment Pain Assessment No/denies pain -DT Cognition Arousal/Alertness Alert;Appropriate responses to stimuli -DT Orientation Oriented X4 (person, place, time, situation) -DT Static Sitting Balance Static Sitting-Balance Support Bilateral upper extremity supported;Feet supported -DT Static Sitting-Sitting Surface Bed -DT Static Sitting-Level of Assistance Minimum assistance -DT Static Standing Balance Static Standing-Level of Assistance Moderate assistance x2 people -DT Therapeutic Exercises Lower Extremity PROM Right;Hip;Knee;Ankle -DT Lower Extremity PROM Comments hip flexion, knee flexion, ankle DF/PF x10 reps -DT Bed Mobility 1 Bed Mobility From 1 Supine -DT Bed Mobility Type 1 To -DT Bed Mobility to 1 Edge of bed -DT Level of Assistance 1 Maximum Assist -DT Bed Mobility Comments 1 assist with manuevering LEs and elevation of trunk -DT Transfer 1 Transfer From 1 Sit -DT Transfer Type 1 To and from -DT Transfer to 1 Stand -DT Technique 1 Sit to stand;Stand to sit -DT Transfer Device 1 Hand held assist -DT Transfer Level of Assistance 1 Moderate Assist x2 people -DT Trials/Comments 1 decreased force production, blocking knees -DT Transfers 2 Transfer From 2 Bed;Sit -DT Transfer Type 2 To -DT Transfer to 2 Chair with arms -DT Technique 2 Stand pivot -DT Transfer Device 2 Hand held assist -DT Transfer Level of Assistance 2 Moderate Assist x2 people -DT Trials/Comments 2 decreased force production, blocking knees, assist to pivot hips -DT Basic Mobility - 6 Click How much difficulty does the patient have: Turning over in bed 2 -DT How much difficulty does the patient currently have: Sitting down and standing up from a chair witharms? 2 -DT How much difficulty does the patient have: Moving from lying on back to sitting on the side of the bed? 2 -DT How much difficulty does the patient have: Moving to and from a bed to a chair including wheelchair? 2 -DT How much help does the patient currently need: Walk in hospital room? 1 -DT How much help from another person does the patient currently need: Climbing 3-5 steps with a railing? 1 -DT Total 6 Click Score (range 6-24) 10 -DT Score Interpretation 28.13 -DT Safe Environment End of Therapy Session Safe Environment End of Therapy Session Patient left in recliner;RN notified;Call light within reach;Bed alarm in place and activated -DT Plan Plan Continue with current plan;If this is the last note, consider this the discharge summary -DT Recommendation/Plan PT Recommendation/Plan Inpatient Rehab Facility -DT Patient at high risk for Falls;Readmission;Injury due to reduced functional status;Injury due to balance deficits;Injury at home as patient has not returned to prior level of function -DT Recommend Inpatient Rehab/Acute Rehab due to Ability to actively participate in intensive therapy 3hours/day, 5 days/week or 900 minutes per week;Highly motivated to participate in therapy;Impaired ability to complete functional mobility;Likely to return to the community at discharge with support system in place;Requires greater than 25% physical assistance with most mobility tasks;Requires multiple therapy disciplines to address functional deficits;Patient and caregiver require specialized skilled training due to new level of function/diagnosis;Requires skilled therapy interventions to address neurological deficits -DT PT Frequency during current admission 3-5x/wk -DT PT Time Calculation PT Start Time 933 -DT PT Stop Time 956 -DT PT Time Calculation (min) 23 min -DT User Cuellar (r) = Recorded By, (t) = Taken By, (c) = Cosigned By Initials Name Effective Dates DT Magali Ocampo, PT 04/02/22 - PT Notes 10/05/2024 1:17 PM Progress Notes signed by Magali Ocampo, PT PAN CHARGER * [facility] Note - Marla Larson RN - 10/06/2024 10:56 AM CST Patient Information: Meds and Admin Active Only All Meds/Most Recent Administrations acetaminophen (TYLENOL) tablet 1,000 mg [[id number]] Ordering Provider: James Robles MD Status: Completed (Past End Date/Time) Ordered On: 10/02/24547 Starts/Ends: 10/02/24629 - 10/02/24614 Ordered Dose (Remaining/Total): 1,000 mg (0/1) Route: oral Frequency: Once Ordered Rate/Order Duration: -- / -- Admin Instructions: Administer 60 minutes prior to surgery. Timestamps Action Dose Route Other Information 10/02/24614 Given 1,000 mg oral Performed by: Juanis Lozano RN Scanned Package: 0325-4176-89, 1573-5256-52 gabapentin (NEURONTIN) capsule 300 mg [[id number]] Ordering Provider: James Robles MD Status: Completed (Past End Date/Time) Ordered On: 10/02/24547 Starts/Ends: 10/02/24629 - 10/02/24614 Ordered Dose (Remaining/Total): 300 mg (0/1) Route: oral Frequency: Once Ordered Rate/Order Duration: -- / -- Admin Instructions: Administer 60 minutes prior to surgery. Timestamps Action Dose Route Other Information 10/02/24614 Given 300 mg oral Performed by: Juanis Lozano RN Scanned Package: 79128-576-28 ceFAZolin (ANCEF) 2,000 mg/20 mL in sterile water (premix) 2,000 mg [[id number]] Ordering Provider: James Robles MD Status: Completed (Past End Date/Time) Ordered On: 10/02/24547 Starts/Ends: 10/02/24629 - 10/02/24 1250 Ordered Dose (Remaining/Total): 2,000 mg (-1/1) Route: intravenous Frequency: Once Ordered Rate/Order Duration: 400 mL/hr / 3 Minutes Admin Instructions: Administer within 60 minutes of incision. Timestamps Action Dose Route Other Information 10/02/24 1250 Given 2,000 mg intravenous Performed by: Vance Morales MD vancomycin 1500 mg/515 mL in sodium chloride 0.9% (premix) 1,500 mg [[id number]] Ordering Provider: James Robles MD Status: Completed (Past End Date/Time) Ordered On: 10/02/24547 Starts/Ends: 10/02/24629 - 10/02/24 0943 Ordered Dose (Remaining/Total): 1,500 mg (0/1) Route: intravenous Frequency: Once Ordered Rate/Order Duration: -- / 90 Minutes Admin Instructions: Administer within 120 minutes of incision. Timestamps Action Dose / Duration Route Other Information 10/02/24 0813 Given 1,500 mg 90 Minutes intravenous Performed by: Vance Morales MD oxyCODONE (ROXICODONE) tablet 5 mg [[id number]] Ordering Provider: Vance Morales MD Status: Completed (Past End Date/Time) Ordered On: 10/02/24 155 Starts/Ends: 10/02/24 155 - 10/02/24 164 Ordered Dose (Remaining/Total): 5 mg (0/1) Route: oral Frequency: Once as needed Ordered Rate/Order Duration: -- / -- Admin Instructions: When able to tolerate PO. Timestamps Action Dose Route Other Information 10/02/24 164 Given 5 mg oral Performed by: Melia Maria RN Scanned Package: 97213-440-40 baclofen (LIORESAL) tablet 10 mg [[id number]] Ordering Provider: Wild Perez MD Status: Dispensed Ordered On: 10/02/24 154 Start: 10/02/24 173 Ordered Dose (Remaining/Total): 10 mg (--/--) Route: oral Frequency: 2 times daily Ordered Rate/Order Duration: -- / -- Timestamps Action Dose Route Other Information 10/06/24 0851 Given 10 mg oral Performed by: Skinny Dubose RN Scanned Package: [address] (CYMBALTA) extended release capsule 30 mg [[id number]] Ordering Provider: Wild Perez MD Status: Dispensed Ordered On: 10/02/241932 Start: 10/02/24 2100 Ordered Dose (Remaining/Total): 30 mg (--/--) Route: oral Frequency: 2 times daily Ordered Rate/Order Duration: -- / -- Admin Instructions: Capsule may be opened and contents mixed with applesauce or apple juice ONLY. Do not crush or chew capsule Timestamps Action Dose Route Other Information 10/06/2451 Given 30 mg oral Performed by: Skinny Dubose RN Scanned Package: 89236-501-04 finasteride (PROSCAR) tablet 5 mg [[id number]] Ordering Provider: Tamanna Porras NP Status: Dispensed Ordered On: 10/02/241932 Start: 10/03/24 0900 Ordered Dose (Remaining/Total): 5 mg (--/--) Route: oral Frequency: Every morning Ordered Rate/Order Duration: -- / -- Admin Instructions: Do not crush, break, or open. Timestamps Action Dose Route Other Information 10/06/2451 Given 5 mg oral Performed by: Skinny Dubose RN Scanned Package: 28739-913-30 sodium chloride 0.9% flush 0.5-20 mL [[id number]] Ordering Provider: Wild Perez MD Status: Verified Ordered On: 10/02/241932 Start: 10/02/241932 Ordered Dose (Remaining/Total): 0.5-20 mL (--/--) Route: intra-catheter Frequency: As needed Ordered Rate/Order Duration: -- / -- Admin Instructions: Flush volume based on line type and size. Flush before and after each use. (No admins scheduled or recorded for this medication) Carrier Fluids for Secondary Infusion - 0.9% Sodium Chloride [[id number]] Ordering Provider: Wild Perez MD Status: Verified Ordered On: 10/02/241932 Start: 10/02/241932 Ordered Dose (Remaining/Total): 30 mL (--/--) Route: intravenous Frequency: As needed Ordered Rate/Order Duration: -- / -- Admin Instructions: 0-250 ml/hr to flush line after IV infusions when no maintenance IV ordered. Infuse 30mL at the same rate as the secondary infusion. Run as primary IV, not intended for KVO. (No admins scheduled or recorded for this medication) oxyCODONE (ROXICODONE) tablet 5 mg [[id number]] Ordering Provider: Wild Perez MD Status: Verified Ordered On: 10/02/241932 Start: 10/02/241932 Ordered Dose (Remaining/Total): 5 mg (--/--) Route: oral Frequency: Every 4 hours PRN Ordered Rate/Order Duration: -- / -- Admin Instructions: May repeat in 1 hour if pain is uncontrolled or increasing. Max 2 doses within 1 dosing interval. (No admins scheduled or recorded for this medication) ondansetron (ZOFRAN) injection 4 mg [[id number]] Ordering Provider: Wild Perez MD Status: Verified Ordered On: 10/02/241932 Start: 10/02/241932 Ordered Dose (Remaining/Total): 4 mg (--/--) Route: intravenous Frequency: Every 6 hours PRN Ordered Rate/Order Duration: -- / 2 Minutes Admin Instructions: Proceed to trimethobenzamide if no relief within 30 minutes. (No admins scheduled or recorded for this medication) famotidine (PEPCID) tablet 20 mg [[id number]] Ordering Provider: Wild Perez MD Status: Dispensed Ordered On: 10/02/241932 Start: 10/02/242099 Ordered Dose (Remaining/Total): 20 mg (--/--) Route: oral Frequency: Every 12 hours scheduled Ordered Rate/Order Duration: -- / -- Admin Instructions: If able to swallow tablets. Timestamps Action Dose Route Other Information 10/06/24 0851 Given 20 mg oral Performed by: Skinny Dubose RN Scanned Package: 65543-986-11 docusate sodium (COLACE) capsule 100 mg [[id number]] Ordering Provider: Wild Perez MD Status: Dispensed Ordered On: 10/02/241932 Start: 10/02/242099 Ordered Dose (Remaining/Total): 100 mg (--/--) Route: oral Frequency: 2 times daily Ordered Rate/Order Duration: -- / -- Admin Instructions: If able to swallow capsules. Hold for diarrhea. Timestamps Action Dose Route Other Information 10/06/2451 Given 100 mg oral Performed by: Skinny Dubose RN Scanned Package: 87681-565-97 senna (SENOKOT) tablet 1 tablet [[id number]] Ordering Provider: Wild Perez MD Status: Dispensed Ordered On: 10/02/241932 Start: 10/02/242099 Ordered Dose (Remaining/Total): 1 tablet (--/--) Route: oral Frequency: 2 times daily Ordered Rate/Order Duration: -- / -- Admin Instructions: If able to swallow tablets. Hold for diarrhea. Timestamps Action Dose Route Other Information 10/06/2451 Given 1 tablet oral Performed by: Skinny Dubose RN Scanned Package: 1234-2363-70 polyethylene glycol (MIRALAX) packet 17 g [[id number]] Ordering Provider: Wild Perez MD Status: Dispensed Ordered On: 10/02/241932 Start: 10/02/242014 Ordered Dose (Remaining/Total): 17 g (--/--) Route: oral Frequency: Daily Ordered Rate/Order Duration: -- / -- Admin Instructions: Hold for diarrhea. Timestamps Action Dose Route Other Information 10/06/2451 Given 17 g oral Performed by: Skinny Dubose RN Scanned Package: 28332-389-35 bisacodyL (DULCOLAX) suppository 10 mg [[id number]] Ordering Provider: Wild Perez MD Status: Dispensed Ordered On: 10/02/241932 Start: 10/02/241932 Ordered Dose (Remaining/Total): 10 mg (--/--) Route: rectal Frequency: Daily PRN Ordered Rate/Order Duration: -- / -- Admin Instructions: If not bowel movement in 48 hours. Timestamps Action Dose Route Other Information 10/05/24 2337 Given 10 mg rectal Performed by: Kay Aaron RN Scanned Package: 9830-8737-07 enoxaparin (LOVENOX) syringe 30 mg [[id number]] Ordering Provider: Wild Perez MD Status: Dispensed Ordered On: 10/02/241932 Start: 10/03/242099 Ordered Dose (Remaining/Total): 30 mg (--/--) Route: subcutaneous Frequency: Daily (for enoxaparin) Ordered Rate/Order Duration: -- / -- Timestamps Action Dose Route / Site Other Information 10/05/241957 Given 30 mg subcutaneous Left Lower Abdomen Performed by: Kristin Land RN Scanned Package: 62829-188-60 ceFAZolin (ANCEF) 2,000 mg/20 mL in sterile water (premix) 2,000 mg [[id number]] Ordering Provider: Wild Perez MD Status: Completed (Past End Date/Time) Ordered On: 10/02/241824 Starts/Ends: 10/02/242099 - 10/03/24458 Ordered Dose (Remaining/Total): 2,000 mg (0/2) Route: intravenous Frequency: Every 8 hours Ordered Rate/Order Duration: 400 mL/hr / 3 Minutes Admin Instructions: Starting 8 hours after last estrella-operative dose. Line Med Link Info Comment Peripheral IV 10/02/24 18 G Left Hand 10/03/24455 by Meliza Koch RN -- Timestamps Action Dose / Rate / Duration Route Other Information 10/03/24455 Given 2,000 mg 400 mL/hr 3 Minutes intravenous Performed by: Meliza Koch RN Scanned Package: [address]-7 vancomycin 1500 mg/515 mL in sodium chloride 0.9% (premix) 1,500 mg [[id number]] Ordering Provider: Widl Perez MD Status: Completed (Past End Date/Time) Ordered On: 10/02/24 193 Starts/Ends: 10/02/242014 - 10/02/242207 Ordered Dose (Remaining/Total): 1,500 mg (0/1) Route: intravenous Frequency: Once Ordered Rate/Order Duration: -- / 90 Minutes Admin Instructions: Administer 12 hours after pre-operative dose. Timestamps Action Dose / Duration Route Other Information 10/02/242037 New Bag 1,500 mg 90 Minutes intravenous Performed by: Melia Maria RN Scanned Package: 5731-3221-78 sodium chloride 0.9% bolus 1,000 mL [[id number]] Ordering Provider: Zora Martínez MD Status: Completed (Past End Date/Time) Ordered On: 10/03/2435 Starts/Ends: 10/03/24 1015 - 10/03/24 0942 Ordered Dose (Remaining/Total): 1,000 mL (0/1) Route: intravenous Frequency: Once Ordered Rate/Order Duration: -- / -- Line Med Link Info Comment Peripheral IV 10/02/24 18 G Right Hand 10/03/24 0942 by Alida Larry RN -- Timestamps Action Dose Route / Site Other Information 10/03/24 0942 New Bag 1,000 mL intravenous Right Hand Performed by: Alida Larry RN Scanned Package: 1555-1217-85 magnesium sulfate 2 g/50 mL in water (premix) 2 g [[id number]] Ordering Provider: Laura Sheets NP Status: Completed (Past End Date/Time) Ordered On: 10/03/24 1445 Starts/Ends: 10/03/24 1530 - 10/03/24 1618 Ordered Dose (Remaining/Total): 2 g (0/1) Route: intravenous Frequency: Once Ordered Rate/Order Duration: -- / 60 Minutes Timestamps Action Dose / Duration Route Other Information 10/03/24 1518 New Bag 2 g 60 Minutes intravenous Performed by: Eric Valdez RN cefTRIAXone (ROCEPHIN) 2,000 mg/20 mL in sterile water (premix) 2,000 mg [[id number]] Ordering Provider: Geraldine Leary NP Status: Dispensed Ordered On: 10/04/24 0850 Starts/Ends: 10/04/24 1000 - 10/09/24 0959 Ordered Dose (Remaining/Total): 2,000 mg (2/5) Route: intravenous Frequency: Every 24 hours scheduled Ordered Rate/Order Duration: 240 mL/hr / 5 Minutes Line Med Link Info Comment Peripheral IV 10/02/24 18 G Right Hand 10/06/24921 by Skinny Dubose RN -- Timestamps Action Dose / Rate / Duration Route Other Information 10/06/24 09 Given 2,000 mg 240 mL/hr 5 Minutes intravenous Performed by: Skinny Dubose RN Scanned Package: [address]-1 azithromycin (ZITHROMAX) tablet 500 mg [[id number]] Ordering Provider: Geraldine Leary NP Status: Completed (Past End Date/Time) Ordered On: 10/04/24 0850 Starts/Ends: 10/04/24 0930 - 10/06/24 0851 Ordered Dose (Remaining/Total): 500 mg (0/3) Route: oral Frequency: Daily Ordered Rate/Order Duration: -- / -- Timestamps Action Dose Route Other Information 10/06/24850 Given 500 mg oral Performed by: Skinny Dubose RN Scanned Package: [address]-9, [address]-3 acetaminophen (TYLENOL) tablet 1,000 mg [[id number]] Ordering Provider: Geraldine Leary NP Status: Verified Ordered On: 10/05/24 1301 Start: 10/05/24 1315 Ordered Dose (Remaining/Total): 1,000 mg (--/--) Route: oral Frequency: Every 6 hours PRN Ordered Rate/Order Duration: -- / -- (No admins scheduled or recorded for this medication) dexAMETHasone (DECADRON) tablet 4 mg [[id number]] Ordering Provider: Cherry Hwang MD Status: Dispensed Ordered On: 10/05/24 1619 Starts/Ends: 10/05/24 1800 - 10/06/24 1759 Ordered Dose (Remaining/Total): 4 mg (1/4) Route: oral Frequency: Every 6 hours scheduled Ordered Rate/Order Duration: -- / -- Timestamps Action Dose Route Other Information 10/06/24 0512 Given 4 mg oral Performed by: Kay Aaron RN Scanned Package: [id number] dexAMETHasone (DECADRON) tablet 4 mg [[id number]] Ordering Provider: Cherry Hwang MD Status: Dispensed Ordered On: 10/05/241618 Starts/Ends: 10/06/241799 - 10/07/242158 Ordered Dose (Remaining/Total): 4 mg (3/3) Route: oral Frequency: Every 8 hours scheduled Ordered Rate/Order Duration: -- / -- (No admins scheduled or recorded for this medication) dexAMETHasone (DECADRON) tablet 2 mg [[id number]] Ordering Provider: Cherry Hwang MD Status: Dispensed Ordered On: 10/05/241618 Starts/Ends: 10/07/242199 - 10/08/242158 Ordered Dose (Remaining/Total): 2 mg (3/3) Route: oral Frequency: Every 8 hours scheduled Ordered Rate/Order Duration: -- / -- (No admins scheduled or recorded for this medication) dexAMETHasone (DECADRON) tablet 1 mg [[id number]] Ordering Provider: Cherry Hwang MD Status: Verified Ordered On: 10/05/241618 Starts/Ends: 10/08/242199 - 10/09/242158 Ordered Dose (Remaining/Total): 1 mg (3/3) Route: oral Frequency: Every 8 hours scheduled Ordered Rate/Order Duration: -- / -- (No admins scheduled or recorded for this medication) dexAMETHasone (DECADRON) tablet 1 mg [[id number]] Ordering Provider: Cherry Hwang MD Status: Verified Ordered On: 10/05/241618 Starts/Ends: 10/09/242199 - 10/10/242058 Ordered Dose (Remaining/Total): 1 mg (2/2) Route: oral Frequency: Every 12 hours scheduled Ordered Rate/Order Duration: -- / -- (No admins scheduled or recorded for this medication) dexAMETHasone (DECADRON) tablet 1 mg [[id number]] Ordering Provider: Cherry Hwang MD Status: Verified Ordered On: 10/05/24 1619 Starts/Ends: 10/11/24 0900 - 10/12/24 0859 Ordered Dose (Remaining/Total): 1 mg (11/22) Route: oral Frequency: Daily Ordered Rate/Order Duration: -- / -- (No admins scheduled or recorded for this medication) PAN CHARGER * [facility] Note - Marla Larson RN - 10/06/2024 10:56 AM CST Images from the original note were not included. Patient Information: Comprehensive Nursing Documentation Attending Provider: James Robles MD Allergies: Sulfa Isolation: None Infection: None Code Status: FULL Ht: 182.9 cm (6') Wt: 104.3 kg (229 lb 15 oz) Admission Cmt: None Principal Problem: Thoracic myelopathy [M47.14] Elopement Risk Date/Time Risk/Reason for Elopement User 10/03/24 1451 No risk AMZ Intake/Output 10/03/24 0700 - 10/04/24 0659 10/04/24 0700 - 10/05/24 0659 10/05/24 0700 - 10/06/24 0659 10/06/24 0700 - 10/07/24 0659 Total Total 6892-7554 1245-2006 8569-3914 Total 6352-7710 6167-1602 0447-6502 Total Intake (ml) 4486.5 1142.6 20 466 900 0604 120 -- -- 120 Output (ml) 3720 1935 850 569 8048 2500 -- -- -- -- Net (ml) 766.5 -792.4 -445 475 -1230 -1200 120 -- -- 120 Last Weight 104.3 kg (229 lb 15 oz) -- -- -- -- -- -- -- -- -- Patient Lines/Drains/Airways Status Active Airway / Central venous catheter / Drain / Epidural cathether / Intraosseous line / Peripherally inserted central catheter / Peripheral intravenous line / Arterial line Name Placement date Placement time Site Days Closed/Suction/Open Drain 1 Right;Superior Back Bulb 10 Fr. 10/02/24 1423 Back 3 Urethral Catheter Straight-tip;Temperature probe;Non-latex 10/02/24 0847 -- 4 Peripheral IV 10/02/24 18 G Left Hand 10/02/24 0614 Hand 4 Peripheral IV 10/02/24 18 G Right Hand 10/02/24 1500 Hand 3 Active Wound Assessment Active Wound / Pressure injury / [place] / Negative Pressure Wound / Incision Wound 10/02/24 Incision Spine Mid-line Date First Assessed 10/02/24 Site Spine Time First Assessed 0918 Days 4 Present on Original Admission: N Primary Wound Type: Incision Location Orientation: Mid-line Assessments Row Name 10/06/24 0846 10/05/24202810/05/24199910/05/2479910/04/241999 Dressing Status Clean/Dry/Intact Clean/Dry/Intact Clean/Dry/Intact Clean/Dry/Intact Clean/Dry/Intact Site Assessment JOÃO JOÃO JOÃO JOÃO JOÃO Drainage Amount None None None None None Estrella-wound Assessment -- JOÃO Color appropriate for ethnicity;Dry -- Dry;Intact Dressing Ioban Gauze;Ioban Ioban -- -- Margins -- JOÃO JOÃO -- -- Closure -- Unable to assess Unable to assess Unable to assess Unable to assess Elder Fall Risk Flowsheet Row Most Recent Value Prior Fall Event (Autopopulated from EMR) None found ............filed at 10/05/20242028 History of Falling 0 ............filed at 10/05/20242028 Secondary Diagnosis 15 ............filed at 10/05/20242028 Ambulatory Aids 0 ............filed at 10/05/20242028 Intravenous Therapy/Heparin/Saline Lock 20 ............filed at 10/05/20242028 Gait/Transferring 10 ............filed at 10/05/20242028 Mental Status 0 ............filed at 10/05/20242028 Elder Fall Risk Score 45 ............filed at 10/05/20242028 Vital Signs 10/05 0700 10/06 0659 10/06 0700 10/06 1056 Most Recent Temp (??C) 36.3 - 37.1 36.4 36.4 (97.6) 10/06 0700 Pulse 54 - 71 57 57 10/06 0700 Resp 12 - 28 17 17 10/06 0700 SpO2 (%) 92 - 100 94 94 10/06 0700 BP 120/64 - 177/82 142/75 142/75 10/06 0700 MAP (mmHg) 80 - 113 91 91 10/06 07 Default Flowsheet Data (most recent) Endurance Tests No documentation. Nursing Nutrition None Nursing Mobility Activity 10/06 922 Resting in bed 10/06 0600 Resting in bed 10/06 0500 Resting in bed 10/06 0400 Resting in bed 10/06 0300 Resting in bed 10/06 0200 Resting in bed 10/06 0100 Resting in bed 10/06 0000 Resting in bed 10/05 2300 Resting in bed 10/05 2200 Resting in bed 10/05 2100 Resting in bed 10/05 202 Resting in bed 10/05 2000 Chair 10/05 1800 Chair 10/05 1600 Chair 10/05 1400 Chair 10/05 1200 Chair 10/05 1000 Chair 10/05 0800 Resting in bed 10/05 0600 Resting in bed 10/05 0400 Resting in bed 10/05 0200 Resting in bed 10/05 0000 Resting in bed 10/04 2200 Resting in bed 10/04 2000 Resting in bed 10/04 1800 Resting in bed 10/04 1600 Resting in bed 10/04 1400 Chair 10/04 1200 Chair 10/04 1000 Resting in bed 10/04 0800 Resting in bed 10/04 0600 Resting in bed 10/04 0400 Resting in bed 10/04 0200 Resting in bed 10/04 0000 Resting in bed 10/03 2200 Resting in bed 10/03 2000 Resting in bed 10/03 1800 Resting in bed 10/03 1600 Resting in bed 10/03 1430 Resting in bed Patient Assistance 10/06 922 -- (Comment: MSG PT and waiting for evaluation how Pt tranfer ( carleen lift /2-3 person assistance?)) 10/05 2000 Maximum assist, patient does 25-49% 10/05 1800 Maximum assist, patient does 25-49% 10/05 1600 Maximum assist, patient does 25-49% 10/05 1400 Maximum assist, patient does 25-49% 10/05 1200 Maximum assist, patient does 25-49% 10/05 1000 Maximum assist, patient does 25-49% 10/05 0800 Dependent, patient does less than 25% 10/05 0600 Dependent, patient does less than 25% 10/05 0400 Dependent, patient does less than 25% 10/05 0200 Dependent, patient does less than 25% 10/05 0000 Dependent, patient does less than 25% 10/04 2200 Dependent, patient does less than 25% 10/04 2000 Dependent, patient does less than 25% 10/04 1800 Dependent, patient does less than 25% 10/04 1600 Dependent, patient does less than 25% 10/04 1400 Dependent, patient does less than 25% 10/04 1200 Dependent, patient does less than 25% 10/04 1000 Moderate assist, patient does 50-74% 10/04 0800 Moderate assist, patient does 50-74% 10/04 0600 Moderate assist, patient does 50-74% 10/04 0400 Moderate assist, patient does 50-74% 10/04 0200 Moderate assist, patient does 50-74% 10/04 0000 Moderate assist, patient does 50-74% 10/03 2200 Moderate assist, patient does 50-74% 10/03 2000 Moderate assist, patient does 50-74% 10/03 1800 Moderate assist, patient does 50-74% 10/03 1600 Moderate assist, patient does 50-74% 10/03 1430 Moderate assist, patient does 50-74% Assistive Device/Equipment Needed 10/05 1000 Gait belt (Comment: x2 assist) 10/04 1600 Mechanical lift 10/04 1400 Mechanical lift 10/04 1200 Mechanical lift Patient Repositioned 10/05 1800 Pillow support 10/05 1600 Pillow support 10/05 1400 Pillow support 10/05 1200 Pillow support 10/05 1000 Pillow support 10/05 0800 Pillow support;Supine 10/05 0600 Wedge support;Right Side 10/05 0400 Pillow support;Supine 10/05 0000 Wedge support;Left side 10/04 2200 Wedge support;Right Side 10/04 1800 Pillow support;Supine 10/04 1600 Left side;Pillow support 10/04 1400 Pillow support 10/04 1200 Pillow support 10/04 1000 Left side;Pillow support 10/04 0800 Right Side;Pillow support 10/04 0600 Pillow support;Supine;Turn self 10/04 0400 Pillow support 10/04 0200 Pillow support;Left side 10/04 0000 Pillow support;Supine 10/03 2200 Pillow support;Right Side 10/03 2000 Pillow support;Refused by patient/family (Comment: refuse travis) 10/03 1800 Pillow support;Supine 10/03 1600 Left side;Wedge support;Pillow support 10/03 1430 Right Side;Wedge support;Pillow support 10/03 1230 Supine 10/03 1200 Right Side;Wedge support 10/03 1100 Right Side Bed Position 10/05 0800 HOB 60 10/05 0600 HOB 30 10/05 0400 HOB 30 10/05 0200 HOB 30 10/05 0000 HOB 30 10/04 2200 HOB 30 10/04 2000 HOB 30 10/04 1800 HOB 30 10/04 1600 HOB 30 10/04 1000 HOB 30 10/04 0800 HOB 30 10/04 0600 HOB 30 10/04 0400 HOB 30 10/04 0200 HOB 30 10/04 0000 HOB 30 10/03 2200 HOB 30 10/03 2000 HOB 30 10/03 1800 HOB 30 10/03 1600 HOB 30 10/03 1430 HOB 30 10/03 1300 HOB 30 10/03 1200 HOB 30 10/03 1100 HOB 30 Heels/Feet 10/05 0800 Heels elevated off bed 10/04 2000 Heels elevated off bed 10/04 1800 Heels elevated off bed 10/04 1600 Heels elevated off bed 10/04 1000 Heels elevated off bed 10/04 0800 Heels elevated off bed 10/04 0600 Heels elevated off bed 10/04 0400 Heels elevated off bed 10/04 0200 Heels elevated off bed 10/04 0000 Heels elevated off bed 10/03 2200 Heels elevated off bed 10/03 2000 Heels elevated off bed 10/03 1800 Heels elevated off bed 10/03 1600 Heels elevated off bed 10/03 1430 Heels elevated off bed Range of Motion 10/06 0600 Active;All extremities 10/06 0500 Active;All extremities 10/06 0400 Active;All extremities 10/06 0300 Active;All extremities 10/06 0200 Active;All extremities 10/06 0100 Active;All extremities 10/06 0000 Active;All extremities 10/05 2300 Active;All extremities 10/05 2200 Active;All extremities 10/05 2029 Active;All extremities 10/05 2000 Active;All extremities 10/05 1800 Active;All extremities 10/05 1600 Active;All extremities 10/05 1400 Active;All extremities 10/05 1200 Active;All extremities 10/05 1000 Active;All extremities 10/05 0800 Active;All extremities 10/05 0600 Active;All extremities 10/05 0400 Active;All extremities 10/05 0200 Active;All extremities 10/05 0000 Active;All extremities 10/04 2200 Active;All extremities 10/04 2000 Active;All extremities 10/04 1800 Active;All extremities 10/04 1600 Active;All extremities 10/04 1400 Active;All extremities 10/04 1200 Active;All extremities 10/04 1000 Active;All extremities 10/04 0800 Active;All extremities 10/04 0600 Active;All extremities 10/04 0400 Active;All extremities 10/04 0200 Active;All extremities 10/04 0000 Active;All extremities 10/03 2200 Active;All extremities 10/03 2000 Active;All extremities 10/03 1800 Active;All extremities 10/03 1600 Active;All extremities 10/03 1430 Active;All extremities 10/03 1404 Active;All extremities Type of Device 10/06 0900 Mechanical compression 10/05 2000 Mechanical compression 10/05 1800 Mechanical compression 10/05 1600 Mechanical compression 10/05 1400 Mechanical compression 10/05 1200 Mechanical compression 10/05 1000 Mechanical compression 10/05 0800 Mechanical compression 10/05 0600 Mechanical compression 10/05 0400 Mechanical compression 10/05 0200 Mechanical compression 10/05 0000 Mechanical compression 10/04 2200 Mechanical compression 10/04 2000 Mechanical compression 10/04 1800 Mechanical compression 10/04 1600 Mechanical compression 10/04 1400 Mechanical compression 10/04 1200 Mechanical compression 10/04 1000 Mechanical compression 10/04 0800 Mechanical compression 10/04 0600 Mechanical compression 10/04 0400 Mechanical compression 10/04 0200 Mechanical compression 10/04 0000 Mechanical compression 10/03 2200 Mechanical compression 10/03 2000 Mechanical compression 10/03 1800 Mechanical compression 10/03 1600 Mechanical compression 10/03 1430 Mechanical compression 10/03 1300 Mechanical compression 10/03 1200 Mechanical compression 10/03 1100 Mechanical compression Mechanical Compression Site 10/06 0900 Bilateral 10/05 2000 Bilateral 10/05 1800 Bilateral 10/05 1600 Bilateral 10/05 1400 Bilateral 10/05 1200 Bilateral 10/05 1000 Bilateral 10/05 0800 Bilateral 10/05 0600 Bilateral 10/05 0400 Bilateral 10/05 0200 Bilateral 10/05 0000 Bilateral 10/04 2200 Bilateral 10/04 2000 Bilateral 10/04 1800 Bilateral 10/04 1600 Bilateral 10/04 1400 Bilateral 10/04 1200 Bilateral 10/04 1000 Bilateral 10/04 0800 Bilateral 10/04 0600 Bilateral 10/04 0400 Bilateral 10/04 0200 Bilateral 10/04 0000 Bilateral / 2200 Bilateral 10/03 2000 Bilateral 10/03 1800 Bilateral 10/03 1600 Bilateral 10/03 1430 Bilateral 10/03 1200 Bilateral Mechanical Compression Type 10/06 0900 IPC/SCD 10/05 2000 IPC/SCD 10/05 1800 IPC/SCD 10/05 1600 IPC/SCD 10/05 1400 IPC/SCD 10/05 1200 IPC/SCD 10/05 1000 IPC/SCD 10/05 0800 IPC/SCD 10/05 0600 IPC/SCD 10/05 0400 IPC/SCD 10/05 0200 IPC/SCD 10/05 0000 IPC/SCD 10/04 2200 IPC/SCD 10/04 2000 IPC/SCD 10/04 1800 IPC/SCD 10/04 1600 IPC/SCD 10/04 1400 IPC/SCD 10/04 1200 IPC/SCD 10/04 1000 IPC/SCD 10/04 0800 IPC/SCD 10/04 0600 IPC/SCD 10/04 0400 IPC/SCD 10/04 0200 IPC/SCD 10/04 0000 IPC/SCD 10/03 2200 IPC/SCD 10/03 2000 IPC/SCD 10/03 1800 IPC/SCD 10/03 1600 IPC/SCD 10/03 1430 IPC/SCD 10/03 1200 IPC/SCD Mechanical Compression Status 10/06 0900 On 10/05 2000 On 10/05 1800 On 10/05 1600 On 10/05 1400 On 10/05 1200 On 10/05 1000 On 10/05 0800 On 10/05 0600 On 10/05 0400 On 10/05 0200 On 10/05 0000 On 10/04 2200 On 10/04 2000 On 10/04 1800 On 10/04 1600 On 10/04 1400 On 10/04 1200 On 10/04 1000 On 10/04 0800 On 10/04 0600 On 10/04 0400 On 10/04 0200 On 10/04 0000 On 10/03 2200 On 10/03 2000 On 10/03 1800 On 10/03 1600 On 10/03 1430 On 10/03 1200 On PAN CHARGER * Plan of Care - Kay Aaron RN - 10/06/2024 3:29 AM DRY PAN CHARGER Goals: Clinical Goals for the Shift: VSS, Q1 neuro check, pain management, safety and comfort Summary: 2028 received report on pt, pt resting in bed with no apparent distress noted, pt assessedand bathed, pt resting in bed with call light within reach. Problem: Lack of Knowledge Goal: Ability to develop a pain control plan will improve Outcome: Progressing Problem: Medication Goal: Satisfaction with pain management medication regimen will improve Outcome: Progressing Problem: Sensory Goal: Ability to identify factors that increase pain levels will improve while working to decrease the patient's pain levels Outcome: Progressing Problem: Coping Goal: Ability to cope will improve Outcome: Progressing Problem: Health Behavior Goal: Identification of resources available to assist in meeting health care needs will improve Outcome: Progressing Problem: Skin Integrity Impairment Risk Goal: Mobility will improve Outcome: Progressing Goal: Understanding of ways to prevent future skin breakdown will improve Outcome: Progressing Goal: Nutritional status will improve Outcome: Progressing Goal: Risk for impaired skin integrity will decrease Outcome: Progressing Problem: Fall Risk Goal: Ability to state ways to decrease the risk of falls will improve Outcome: Progressing Goal: Will remain free from falls Outcome: Progressing Goal: Will remain free from injury from falls Outcome: Progressing Problem: Neurosensory Goal: Achieves stable or improved neurological status Outcome: Progressing Goal: Achieves maximal functionality and self care Outcome: Progressing Problem: Respiratory Goal: Achieves optimal ventilation and oxygenation Outcome: Progressing Problem: Cardiovascular Goal: Maintains optimal cardiac output and hemodynamic stability Outcome: Progressing Goal: Absence of cardiac dysrhythmias or at baseline Outcome: Progressing Problem: Skin/Tissue Integrity Goal: Skin integrity remains intact Outcome: Progressing Goal: Incisions, wounds, or drain sites healing without S/S of infection Outcome: Progressing Goal: Oral mucous membranes remain intact Description: Outcome: Progressing Problem: Musculoskeletal Goal: Return mobility to safest level of function Outcome: Progressing Goal: Maintain proper alignment of affected body part Outcome: Progressing Goal: Return ADL status to a safe level of function Outcome: Progressing Goal: Ability to perform activities at highest level will improve Outcome: Progressing Goal: Mobility, ROM and muscle strength will improve Outcome: Progressing Problem: Gastrointestinal Goal: Minimal or absence of nausea and vomiting Outcome: Progressing Goal: Maintains or returns to baseline bowel function Outcome: Progressing Goal: Maintains adequate nutritional intake Outcome: Progressing Problem: Genitourinary Goal: Urinary catheter remains patent Outcome: Progressing Problem: Infection Goal: Absence of infection during hospitalization Outcome: Progressing Problem: Metabolic/Fluid and Electrolytes Goal: Electrolytes maintained within normal limits Outcome: Progressing Goal: Hemodynamic stability and optimal renal function maintained Outcome: Progressing Problem: Discharge Planning Goal: Understanding discharge needs will improve Outcome: Progressing PAN CHARGER * Provider Query - Tamanna Porras NP - 10/05/2024 9:16 AM CST Specify a diagnosis that reflects the patient???s lab findings and document in the medical record and on the form below. __x_ Lactic acidosis ___Acute ___Chronic __x_Unspecified ___ Acidosis, unspecified type ___ Other, specify below Additional Provider Response: As above Clinical Indicators/Treatments: -ICU Admission Dx: T3-5 laminectomy and decompression, arachnoid cyst wall fenestration, Community Acquired PNA - Prog. Notes 10/04/24 (Vern) Latest Reference Range & Units 10/03/24 20:25 10/03/24 22:36 10/04/24 09:06 10/04/24 12:12 10/04/24 20:49 CO2 22 - 32 mmol/L 20 (L) 22 22 Lactate 0.7 - 2.0 mmol/L 4.1 !! Lactate, bld 0.7 - 2.0 mmol/L 3.7 (H) 2.5 (H) !!: Data is critical (L): Data is abnormally low (H): Data is abnormally high Monitoring/TX: -Lab monitoring References: From the ICD-10-CM Official Guidelines for Coding and Reporting, use of terms such as likely, suspected, possible, or probable (associated with a specific diagnosis that is being evaluated, monitored, or treated as if it exists) are acceptable and can be coded in the inpatient setting when documented at the time of discharge. Acidosis Screening Criteria Acidemia is a low arterial pH (<7.35) which can result from a metabolic acidosis, respiratory acidosis, or both. Acidosis is the umbrella term for any process that lowers the pH (either by fall in bicarbonate or elevation in PCO2). It can be further characterized by metabolic/respiratory and then even further delineated by gap or non-gap (if metabolic) There can be multiple acid/base disorders in one patient, therefore the HCO3, the CO2, and the pH alone cannot always be used to diagnose a metabolic disorder. The whole clinical picture is necessaryto make the diagnosis. Metabolic Acidosis Lactic Acidosis is a type of metabolic acidosis While no definitive concentration of lactate has been established for the diagnosis of lactic acidosis, lactate concentrations > 4 mmol/L are generally considered indicative of significant lactic acidosis. Less extreme lactate and pH changes are referred to as hyperlacticemia (>2 mmol/L). Lactic acid > 4 mmol/L supports the diagnosis of lactic acidosis, even in the setting of normal CO2 and HCO3 values. (Neither anion gap or pH is a reliable criteria for lactic acidosis.) Lactic acidosis is not integral to sepsis and may be documented and coded as an additional diagnosis, when appropriate If provider believes patient has acidosis in the absence of above laboratory values, please document rationale and clinical impression in detail Acidosis References Iwona CD, Petra RE. Lactic Acidosis. [Updated 2018Oct 16]. In: [employer] [Internet]. [facility]): [place]; 2019-. Available from: https://www.ncbi.nlm.nih.gov/books/AVO540131/ https://www.shipbeat/contents/badhul-se-ttrlvc-acidosis https://www.[employer]/professional/oacxvgfhb-mah-ntiesbogu-disorders/acid -gjom-qrcezodeqm-eng-disorders/metabolic-acidosis https://www.[employer]/professional/ehjdjfbez-nzw-orumocdxk-disorders/acid -aqci-etrzmyxuju-dlb-disorders/respiratory-acidosis https://www.[employer]/professional/ixofofezl-ywn-xdbwkimfh-disorders/acid -ltsz-nsbcnboqmg-ogz-disorders/lactic-acidosis Guide to Clinical Validation, Documentation and Coding, 2019 Edition, [employer] As of August 22, 2022, IPPS Final Rule updates, if acute respiratory acidosis is documented, the code for acute respiratory failure with hypercapnia will be reported. If chronic respiratory acidosis is documented, the code for chronic respiratory failure with hypercapnia. The diagnosis of acute respiratory acidosis is valid when it meets the criteria listed in this guideline and when appropriately documented by the provider. This documentation will become part of the patient???s medical record. Respectfully Kannan LA RN [email or web address] [phone] PAN CHARGER * Plan of Care - Eric Valdez RN - 10/05/2024 7:56 AM CST Goals: NC Q2, MAP >80, promote comfort and safety Summary: Problem: Lack of Knowledge Goal: Ability to develop a pain control plan will improve Outcome: Ongoing Problem: Medication Goal: Satisfaction with pain management medication regimen will improve Outcome: Ongoing Problem: Sensory Goal: Ability to identify factors that increase pain levels will improve while working to decrease the patient's pain levels Outcome: Ongoing Problem: Coping Goal: Ability to cope will improve Outcome: Ongoing Problem: Health Behavior Goal: Identification of resources available to assist in meeting health care needs will improve Outcome: Ongoing Problem: Skin Integrity Impairment Risk Goal: Mobility will improve Outcome: Ongoing Goal: Understanding of ways to prevent future skin breakdown will improve Outcome: Ongoing Goal: Nutritional status will improve Outcome: Ongoing Goal: Risk for impaired skin integrity will decrease Outcome: Ongoing Problem: Fall Risk Goal: Ability to state ways to decrease the risk of falls will improve Outcome: Ongoing Goal: Will remain free from falls Outcome: Ongoing Goal: Will remain free from injury from falls Outcome: Ongoing Problem: Neurosensory Goal: Achieves stable or improved neurological status Outcome: Ongoing Goal: Achieves maximal functionality and self care Outcome: Ongoing Problem: Respiratory Goal: Achieves optimal ventilation and oxygenation Outcome: Ongoing Problem: Cardiovascular Goal: Maintains optimal cardiac output and hemodynamic stability Outcome: Ongoing Goal: Absence of cardiac dysrhythmias or at baseline Outcome: Ongoing Problem: Skin/Tissue Integrity Goal: Skin integrity remains intact Outcome: Ongoing Goal: Incisions, wounds, or drain sites healing without S/S of infection Outcome: Ongoing Goal: Oral mucous membranes remain intact Description: Outcome: Ongoing Problem: Musculoskeletal Goal: Return mobility to safest level of function Outcome: Ongoing Goal: Maintain proper alignment of affected body part Outcome: Ongoing Goal: Return ADL status to a safe level of function Outcome: Ongoing Goal: Ability to perform activities at highest level will improve Outcome: Ongoing Goal: Mobility, ROM and muscle strength will improve Outcome: Ongoing Problem: Gastrointestinal Goal: Minimal or absence of nausea and vomiting Outcome: Ongoing Goal: Maintains or returns to baseline bowel function Outcome: Ongoing Goal: Maintains adequate nutritional intake Outcome: Ongoing Problem: Genitourinary Goal: Urinary catheter remains patent Outcome: Ongoing Problem: Infection Goal: Absence of infection during hospitalization Outcome: Ongoing Problem: Metabolic/Fluid and Electrolytes Goal: Electrolytes maintained within normal limits Outcome: Ongoing Goal: Hemodynamic stability and optimal renal function maintained Outcome: Ongoing Problem: Discharge Planning Goal: Understanding discharge needs will improve Outcome: Ongoing PAN CHARGER * Plan of Care - Leonel Blackwell RN - 10/05/2024 5:19 AM CST Goals: Clinical goals for shift: pain management, MAP >80, monitor intake and output, promote comfort Summary: Problem: Lack of Knowledge Goal: Ability to develop a pain control plan will improve Outcome: Progressing Problem: Medication Goal: Satisfaction with pain management medication regimen will improve Outcome: Progressing Problem: Sensory Goal: Ability to identify factors that increase pain levels will improve while working to decrease the patient's pain levels Outcome: Progressing Problem: Coping Goal: Ability to cope will improve Outcome: Progressing Problem: Health Behavior Goal: Identification of resources available to assist in meeting health care needs will improve Outcome: Progressing Problem: Skin Integrity Impairment Risk Goal: Mobility will improve Outcome: Progressing Goal: Understanding of ways to prevent future skin breakdown will improve Outcome: Progressing Goal: Nutritional status will improve Outcome: Progressing Goal: Risk for impaired skin integrity will decrease Outcome: Progressing Problem: Fall Risk Goal: Ability to state ways to decrease the risk of falls will improve Outcome: Progressing Goal: Will remain free from falls Outcome: Progressing Goal: Will remain free from injury from falls Outcome: Progressing Problem: Neurosensory Goal: Achieves stable or improved neurological status Outcome: Progressing Goal: Achieves maximal functionality and self care Outcome: Progressing Problem: Respiratory Goal: Achieves optimal ventilation and oxygenation Outcome: Progressing Problem: Cardiovascular Goal: Maintains optimal cardiac output and hemodynamic stability Outcome: Progressing Goal: Absence of cardiac dysrhythmias or at baseline Outcome: Progressing Problem: Skin/Tissue Integrity Goal: Skin integrity remains intact Outcome: Progressing Goal: Incisions, wounds, or drain sites healing without S/S of infection Outcome: Progressing Goal: Oral mucous membranes remain intact Description: Outcome: Progressing Problem: Musculoskeletal Goal: Return mobility to safest level of function Outcome: Progressing Goal: Maintain proper alignment of affected body part Outcome: Progressing Goal: Return ADL status to a safe level of function Outcome: Progressing Goal: Ability to perform activities at highest level will improve Outcome: Progressing Goal: Mobility, ROM and muscle strength will improve Outcome: Progressing Problem: Gastrointestinal Goal: Minimal or absence of nausea and vomiting Outcome: Progressing Goal: Maintains or returns to baseline bowel function Outcome: Progressing Goal: Maintains adequate nutritional intake Outcome: Progressing Problem: Genitourinary Goal: Urinary catheter remains patent Outcome: Progressing Problem: Infection Goal: Absence of infection during hospitalization Outcome: Progressing Problem: Metabolic/Fluid and Electrolytes Goal: Electrolytes maintained within normal limits Outcome: Progressing Goal: Hemodynamic stability and optimal renal function maintained Outcome: Progressing Problem: Discharge Planning Goal: Understanding discharge needs will improve Outcome: Progressing PAN CHARGER * Plan of Care - Eric Valdez RN - 10/04/2024 12:18 PM CST Goals: NC Q2, MAP >80, VSS, promote comfort and safety Summary: Problem: Lack of Knowledge Goal: Ability to develop a pain control plan will improve Outcome: Ongoing Problem: Medication Goal: Satisfaction with pain management medication regimen will improve Outcome: Ongoing Problem: Sensory Goal: Ability to identify factors that increase pain levels will improve while working to decrease the patient's pain levels Outcome: Ongoing Problem: Coping Goal: Ability to cope will improve Outcome: Ongoing Problem: Health Behavior Goal: Identification of resources available to assist in meeting health care needs will improve Outcome: Ongoing Problem: Skin Integrity Impairment Risk Goal: Mobility will improve Outcome: Ongoing Goal: Understanding of ways to prevent future skin breakdown will improve Outcome: Ongoing Goal: Nutritional status will improve Outcome: Ongoing Goal: Risk for impaired skin integrity will decrease Outcome: Ongoing Problem: Fall Risk Goal: Ability to state ways to decrease the risk of falls will improve Outcome: Ongoing Goal: Will remain free from falls Outcome: Ongoing Goal: Will remain free from injury from falls Outcome: Ongoing Problem: Neurosensory Goal: Achieves stable or improved neurological status Outcome: Ongoing Goal: Achieves maximal functionality and self care Outcome: Ongoing Problem: Respiratory Goal: Achieves optimal ventilation and oxygenation Outcome: Ongoing Problem: Cardiovascular Goal: Maintains optimal cardiac output and hemodynamic stability Outcome: Ongoing Goal: Absence of cardiac dysrhythmias or at baseline Outcome: Ongoing Problem: Skin/Tissue Integrity Goal: Skin integrity remains intact Outcome: Ongoing Goal: Incisions, wounds, or drain sites healing without S/S of infection Outcome: Ongoing Goal: Oral mucous membranes remain intact Description: Outcome: Ongoing Problem: Musculoskeletal Goal: Return mobility to safest level of function Outcome: Ongoing Goal: Maintain proper alignment of affected body part Outcome: Ongoing Goal: Return ADL status to a safe level of function Outcome: Ongoing Goal: Ability to perform activities at highest level will improve Outcome: Ongoing Goal: Mobility, ROM and muscle strength will improve Outcome: Ongoing Problem: Gastrointestinal Goal: Minimal or absence of nausea and vomiting Outcome: Ongoing Goal: Maintains or returns to baseline bowel function Outcome: Ongoing Goal: Maintains adequate nutritional intake Outcome: Ongoing Problem: Genitourinary Goal: Urinary catheter remains patent Outcome: Ongoing Problem: Infection Goal: Absence of infection during hospitalization Outcome: Ongoing Problem: Metabolic/Fluid and Electrolytes Goal: Electrolytes maintained within normal limits Outcome: Ongoing Goal: Hemodynamic stability and optimal renal function maintained Outcome: Ongoing Problem: Discharge Planning Goal: Understanding discharge needs will improve Outcome: Ongoing PAN CHARGER * Provider Query - Tamanna Porras NP - 10/04/2024 11:31 AM CST Based on the clinical indicators and antibiotic choice, specify the most likely pneumonia being treated. Document in the medical record and on the form below. Select all conditions being treated: ____Aspiration pneumonia __x__Bacterial pneumonia, unspecified ____Other, specify below Additional Provider Response: Community acquired pneumonia Clinical Indicators/Treatments: -74 year old male patient with c/o lower back pain with diffuse radiation pain and numbness tingling down the legs and feet bilaterally and arrives to [facility] for posterior lumbar-thoracic spinal fusion with instrumentation 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/thoracic decompression laminectomy for thoracic myelopathy on 10/02 - H&P (Luterman) Prog. Notes (Arshi): Mild hypoxemia secondary to CAP CXR 10/03/24: Ill-defined airspace opacity predominantly in the left mid and upper lung as well as right midlung which may be due to aspiration and/or pneumonia Monitoring/TX: -Ceftriaxone, Azithromycin -Promote IS q1 -OOBTC -wean supplemental oxygen for goal SaO2> 92% -Check RVP References: NOTE: CAP and HCAP do not indicate the organism being treated. Organism Common Antibiotics Gram-Negative Organisms, such as: Achromobacter Acinetobacter Citrobacter Enterobacter E. coli Haemophilus Klebsiella Proteus mirabilis Pseudomonas Amikacin Amoxicillin/Clavulanic Acid Ampicillin Aztreonam Cefazolin Cefepime Cefiderocol Ceftazidiime Ceftolozane-Tazobactam Ceftriaxone Ciprofloxacin Ertapenem Fosfomycin Gentamicin Levofloxacin Meropenem Nitrofurantoin Piperacillin/Tazobactam Tetracycline Tobramycin Trimeth/Sulfa Gram-Positive Organisms, such as: MRSA MSSA Staphylococcus Enterococcus Streptococcus Corynebacterium Ampicillin Benzylpenicillin Cefazolin Ceftaroline Ceftriaxone Clindamycin Doxycycline Erythromycin Gentamycin (high-level) Linezolid Nitrofurantoin Oxacillin Penicillin Streptomycin (high-level) Tetracycline Trimeth/Sulfa Vancomycin References [facility] Antibiogram 2021 [facility] Antibiogram 2021 [facility] Antibiogram 2021 From the ICD-10-CM Coding Guidelines, use of terms such as likely, suspected, possible, or probable(associated with a specific diagnosis that is being evaluated, monitored, or treated as if it exists) are acceptable and can be coded in the inpatient setting when documented at the time of discharge. This documentation will become part of the patient???s medical record. Respectfully Kannan LA RN CCDS [email or web address] [phone] PAN CHARGER * Provider Query - Tamanna Porras NP - 10/04/2024 11:30 AM CST Specify a diagnosis that reflects the patient???s level of strength and mobility on admission, and document in the medical record and on the form below. Select all that apply: ___Age related physical debility (frailty) ___Limitation of activity due to disability _X__Reduced Mobility ___Other, specify below Additional Provider Response: As above Clinical Indicators/Treatments: -74 year old male patient with c/o lower back pain with diffuse radiation pain and numbness tingling down the legs and feet bilaterally and arrives to [facility] for posterior lumbar-thoracic spinal fusion with instrumentation 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/thoracic decompression laminectomy for thoracic myelopathy on 10/02 - H&P (Sheldon) H&P (Marcin): Functional capacity: ambulates with assistance only and <4 METs Functional capacity limited by a non-cardiovascular, non-pulmonary condition Patient utilizing a walker for assistance d/t balance issues and L leg weakness and neuropathy, denies SOB or CP w/activity Monitoring/TX: -PT/OT notes -s/p 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, decompression References: General Debility and Chronic Fatigue Documentation Practices To accurately represent patient acuity under CMS risk-adjustment methodology, please consider and document the following diagnoses, when applicable. Age-related physical debility Postviral fatigue syndrome Consider in patients with excessive and persistent fatigue following a viral illness, such as COVID-19 Myalgic encephalopmyelitis/chronic fatigue syndrome Other post-infection and related fatigue syndromes Neoplastic related fatigue The only diagnostic criteria is if the patient reports fatigue. May also report weariness, malaise,apathy, lassitude, or burnout. Characterized by excessive and persistent exhaustion that is disproportionate to the task done, often interfering with daily activity. Exhibited in 70-100% of patients with cancer. Often begins prior to diagnosis, worsens during treatment, and may persist for months or years after treatment ends Functional Quadriplegia Chronic fatigue Limitation of activities due to disability Bed confinement status Other reduced mobility Applicable to those with impaired mobility, requiring dependence on care providers. May require extensive PT/OT, carleen lifts, mobility devices/aids, etc. Debility References Functional Quadriplegia. ICD-9-CM Coding Clinic, 2007 Page: 143 Effective with discharges: August [facility] Information [facility]: Cancer Fatigue From the ICD-10-CM Coding Guidelines, use of terms such as likely, suspected, possible, or probable(associated with a specific diagnosis that is being evaluated, monitored, or treated as if it exists) are acceptable and can be coded in the inpatient setting when documented at the time of discharge. This documentation will become part of the patient???s medical record. Respectfully Kannan LA RN CCDS [email or web address] [phone] PAN CHARGER * Initial Assessments - Saturnino Kennedy RN - 10/04/2024 9:35 AM DRY PAN CHARGER CM Initial Assessment Interview Note Information Obtained From: Patient Admission Source: CPAP CAM SC Impression: Patient admitted to [facility] NN[facility] post operative for T3-5 laminectomy and decompression, arachnoid cyst wall fenestration protocol. Plan Includes: promotions firm accounts manager will monitor for post acute discharge needs such as therapy, nursing, medical equipment or agency referrals as indicated by the care team. Primary Source of Transportation: Does the patient need discharge transport arranged?: No If private car is appropriate at discharge, Reginald Thus [phone] will provide transport at discharge from hospital. Health Insurance Coverage: Medicare A & B, BCBS Federal Prescription Coverage: Yes Pharmacy: [id number] [place], [place] - [facility] [address] AT [address] [facility] [id number] Primary Care Provider: Sj Benson MD Prior to Admission: Functional Status: Minimal assist with ADLs Primary Caregiver: Spouse (Reginald Thus [phone]) Support System: Spouse/Significant Other, Children Home Care Services: No Outpatient Services: No Durable Medical Equipment: Walker (wheeled) Living Arrangements: Spouse/significant other (Reginald Thus [phone]) Type of Residence: Private residence Steps in home?: Yes, Outside of home, Yes, Inside home Number of steps inside: 12 steps Number of steps outside: 1 steps Potential discharge needs include: Home Health: Other (Comment) (TBD) Behavioral Health Services: Behavioral Health Services: No Anticipated Level of Care: Anticipated discharge level of care: Private residence Pt/Family agrees with Anticipated Level of Care: Yes Patient expects to be Discharged to: Private residence Additional Information: Patient's address verified correct in Epic. If private car is appropriate at discharge, Spouse-Gricelda Delgado [phone] will provide transport at discharge from hospital. Patient's Identified Problem/Goal Problem: Ensure acute medical needs are met and that patient has a safe discharge plan. Goal: Secure a discharge plan that patient/family are agreeable with and ensure patient has continuum of care. Case management will follow for discharge planning and send referrals as needed. Goals include: To assure continuity of care, To maximize coping skills, To assure patient is in a safe environment and To assure access to community resources. Plan includes: 1. Collaboration with Patient, Provider, Direct Care Nurse, Deli Slicer, and other members of theHealth Care Team to assure needed interventions completed. 2. Return patient to optimal level of self-care post discharge. 3. Acute Care Assistant will follow for Discharge Planning - interventions as needed 4. Anticipated level of care at discharge 5. Planned Discharge Disposition Saturnino Kennedy RN PAN CHARGER * Plan of Care - Eric Valdez RN - 10/03/2024 2:50 PM CST Goals: MAP >110, VSS, promote comfort and safety, NC Q1 Summary: Problem: Lack of Knowledge Goal: Ability to develop a pain control plan will improve Outcome: Ongoing Problem: Medication Goal: Satisfaction with pain management medication regimen will improve Outcome: Ongoing Problem: Sensory Goal: Ability to identify factors that increase pain levels will improve while working to decrease the patient's pain levels Outcome: Ongoing Problem: Coping Goal: Ability to cope will improve Outcome: Ongoing Problem: Health Behavior Goal: Identification of resources available to assist in meeting health care needs will improve Outcome: Ongoing Problem: Skin Integrity Impairment Risk Goal: Mobility will improve Outcome: Ongoing Goal: Understanding of ways to prevent future skin breakdown will improve Outcome: Ongoing Goal: Nutritional status will improve Outcome: Ongoing Goal: Risk for impaired skin integrity will decrease Outcome: Ongoing Problem: Fall Risk Goal: Ability to state ways to decrease the risk of falls will improve Outcome: Ongoing Goal: Will remain free from falls Outcome: Ongoing Goal: Will remain free from injury from falls Outcome: Ongoing Problem: Neurosensory Goal: Achieves stable or improved neurological status Outcome: Ongoing Goal: Achieves maximal functionality and self care Outcome: Ongoing Problem: Respiratory Goal: Achieves optimal ventilation and oxygenation Outcome: Ongoing Problem: Cardiovascular Goal: Maintains optimal cardiac output and hemodynamic stability Outcome: Ongoing Goal: Absence of cardiac dysrhythmias or at baseline Outcome: Ongoing Problem: Skin/Tissue Integrity Goal: Skin integrity remains intact Outcome: Ongoing Goal: Incisions, wounds, or drain sites healing without S/S of infection Outcome: Ongoing Goal: Oral mucous membranes remain intact Description: Outcome: Ongoing Problem: Musculoskeletal Goal: Return mobility to safest level of function Outcome: Ongoing Goal: Maintain proper alignment of affected body part Outcome: Ongoing Goal: Return ADL status to a safe level of function Outcome: Ongoing Goal: Ability to perform activities at highest level will improve Outcome: Ongoing Goal: Mobility, ROM and muscle strength will improve Outcome: Ongoing Problem: Gastrointestinal Goal: Minimal or absence of nausea and vomiting Outcome: Ongoing Goal: Maintains or returns to baseline bowel function Outcome: Ongoing Goal: Maintains adequate nutritional intake Outcome: Ongoing Problem: Genitourinary Goal: Urinary catheter remains patent Outcome: Ongoing Problem: Infection Goal: Absence of infection during hospitalization Outcome: Ongoing Problem: Metabolic/Fluid and Electrolytes Goal: Electrolytes maintained within normal limits Outcome: Ongoing Goal: Hemodynamic stability and optimal renal function maintained Outcome: Ongoing PAN CHARGER * Perioperative Nursing Note - Alida Larry RN - 10/03/2024 11:[address] Martínez with neuro on-call updated with current phenylephrine requirement, arterial line interventions and patient status 12:00: Neuro on-call notified to present to 44ICU as well while still boarding in PACU. 44 triage presented to by jonas Cook on-call. Also notified re: pt urine output pink tinged for past hour,prior was yellow and clear. No love blood or clots. Pt updated on patient and boarding status PAN CHARGER PAN CHARGER PAN CHARGER * Perioperative Nursing Note - Alida Larry RN - 10/03/2024 10:[address] Wayne at bedside to evaluate arterial line PAN CHARGER * Perioperative Nursing Note - Alida Larry RN - 10/03/2024 9:35 AM DRY PAN CHARGER Neuro pager team contacted regarding continued MAP issues. Orders received. PAN CHARGER * Perioperative Nursing Note - Alida Larry RN - 10/03/2024 8:42 AM DRY PAN CHARGER Patient repositioned. Armboard placed to attempt to maintain arterial BP. Line quite positional andvaries with non-invasive pressure. PAN CHARGER * Perioperative Nursing Note - Meliza Koch RN - 10/03/2024 5:26 AM CST Mr. Delgado slept soundly through the night, but was A&O x 4 on waking. His dedicated owner operator were 5/5 bilaterally. His plantar flexion improved throughout the night. From 2200 to 0600, his plantar flexion LLE went from 3+/5+ to 5+/5+, and his RLE went from 1+/5+ to 2-3+/5+. His dorsiflexion LLE went from 3+/5+ to 5+/5+, and his RLE remained weak at 1+/5+. Phenylephrine was as high as 0.9mcg/kg/min to sustain MAP goal of >110. PAN CHARGER * Brief Op Note - Wild Perez MD - 10/02/2024 3:26 PM CST Operative Progress Note Surgical Team: Surgeons and Role: * James Robles MD - Primary * Wild Perez MD - Resident - Assisting * Meghan Major DO - Fellow Anesthesiologist: Marimar Carr MD PhD Marble Machine Tender: Vance Morales MD Mission Coordinator: Timo Bonilla RN Mission Coordinator Relief: Gabriela Sullivan RN Scrub Relief: Rae Starr RN Scrub: Joyce Zhou RN Burial Vault Maker: Dejan Velásquez [facility] Scrub: May Carroll RN DATE OF SURGERY : 10/02/2024 Preoperative Diagnosis: Pre-op Diagnosis * Thoracic myelopathy [M47.14] Postoperative Diagnosis: Post-op Diagnosis * Thoracic myelopathy [M47.14] Procedure(s): Procedure(s) (LRB): POSTERIOR LUMBAR/THORACIC WITH INSTRUMENTATION 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 (N/A) LAMINECTOMY THORACIC DECOMPRESSION (N/A) SPINAL CORD MONITORING (N/A) Operative Findings: T3-5 laminectomy and decompression, arachnoid cyst wall fenestration. BLE MEPs lost intraoperatively. Estimated Blood Loss: 200mL Intraoperative Fluids: 2500 mls Specimens: ID Type Source Tests Collected by Time A : ARCHNOID CYST WALL Tissue Soft Tissue Mass - Simple Excision SURGICAL PATHOLOGY James Robles MD 10/02/2024 1215 Implants: Nothing was implanted during the procedure Blood/Blood Products Transfused: 0 mls Complications: None Condition on Discharge from the operating room was stable Wild Perez MD Date: 10/02/2024 Time: 3:26 PM Cosigned by James Robles MD at 10/03/2024 8:13 AM DRY PAN CHARGER PAN CHARGER PAN CHARGER * Op Note - James Robles MD - 10/02/2024 9:18 AM CST Surgeon: James Robles MD Director Biology: Satish Major DO Preoperative diagnosis: 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 Patient was offered a revision T3 to T5 laminectomy with intradurall expiration and arachnoid webs/arachnoid cyst excision. Patient understood risks, benefits, common alternatives to surgery and wished to proceed with surgery. Notably, patient understood that the procedure had a high risk of making him more myelopathi c/neurologically worse with approximately 30% risk of worsening. Patient understood that he would likely be temporarily weaker than preop due to the spinal cord manipulation and scar removal of his spinal cord. Patient understood the risks and benefits from appearance to surgery. Please see my preoperative clinic notes regarding clinical discussions with the patient. Procedure performed: 1. T3, T4, T5 revision laminectomy 2. Intradural exploration with revision dorsal arachnoid web excision 3. Use of intraoperative ultrasound 4. Use of high powered magnification/intraoperative microscope 5. Use of GW tongs for intraoperative traction 6. Use of neuromonitoring 7. Difficulty 22 modifier requested for the revision laminectomies and intradural revision/recurrent arachnoid web excision, given that it took approximately 3 to 4 times for this procedure traditionally would, given the revision nature and excessive circumferential scarring around the spinal cord. Details of procedure: Patient was brought into the operating room by the general anesthesia team and the surgical team. The patient was subsequently identified, and a primary time out was performed to confirm the patient's identity and planned procedure. The patient was then sedated, intubated, grid lines replaced by the general anesthesia team. The patient was then flipped prone onto an OSI table with all appropriatebony prominences padded to minimize injury, and the surgical field was subsequently prepped and draped in usual sterile fashion after being localized with fluoroscopy. The head was secured with Dozier Woz tongues, ??15 of traction. The torso was firmly secured to the table. After draping, a second time out was performed to confirm the patient's identity, procedure, and important perioperative details. No barriers were identified to proceed. The skin was incised sharply.Meticulous periosteal exposure was completed from T3 to T5, and identification of the previous ho ectomy defect at T4. Fluoroscopy confirmed localization. We then used the bone scalpel to perform a revision laminectomy, extending the laminectomy to T3 and T5 as well as widening the laminectomy previously performed at T4. We then obtained hemostasis andbrought in the intraoperative microscope. A midline dural defect was created and expanded with a nerve hook from T3 to T5. The dural was dissected free from the underlying arachnoid adhesions and subsequently tacked up with stitches. Dense circumferential and thick arachnoid tissue was observed to be constricting the spinal cord from T3 down to T5. We proceeded to meticulously use a combination of sharp and blunt dissection to dissect the arachnoid tissue comprehensively off the spinal cord, until we could observe that the spinal cord became pulsatile once again and experienced some re-expansion to its natural girth. During this process, there was a loss of motor evoked potentials near the completion of the excision. At this point, it was determined that we had resected sufficient amount of the arachnoid tissue/scarring to detether the spinal cord, observing its pulsatility, and also knew that we could not resectany further at risk of a permanent neurological deficit. We proceeded to use running 5-0 proline sutures to close the dura. We used intraoperative ultrasound post closure to check the intradural compartment. Because we still had not experienced any significant return of motor evoked potentials, we opened up the caudal aspect of the dural repair to check that there was not any accumulation of blood products and that the spinal cord continued to appear free and pulsatile. This was confirmed, and the dural defect was once again closed. The dural defect was then reinforced with a combination of tschosil and tisseal fibrin glue. Hemostasis was obtained once again, and the subfascial drain was left in place. The wound was subsequentlyclosed in layers. All counts were correct. The family was informed regarding the completion of the procedure and the challenges with the motor evoked potentials. The patient was awoken from anesthesia, found to be moving his left lower extremity well but only distal function in his right lower extremity. A few hours later by the morning, the patient was foundto have regained significant function in his right lower extremity and near full strength in his left lower extremity. The family was kept up to date. Please note that I was present for all critical components of the procedure. Please note that Avis Funk Moriah was present for all critical components of the procedure as accounts receivable assistant and participated specifically with the revision laminectomy and intradural arachnoid web/cystic incision and lysis of adhesions. Please note that her expert assistance was necessary given the lack of availability of a qualified resident. PAN CHARGER documented in this encounter Plan of Treatment Pending Results Name Type Priority Associated Diagnoses Date /Time Hepatic function panel Lab Routine 8:12 PM DRY PAN CHARGER Scheduled Orders Name Type Priority Associated Diagnoses Order Schedule Surgical pathology Pathology and Cytology Routine Thoracic myelopathy Release Upon Ordering for 1 Occurrences starting 10/02/2024 Hepatic function panel Lab Routine Once for 1 Occurrences starting 10/13/2024 until 10/13/2024 documented as of this encounter Procedures Procedure Name Priority Date/Time Associated Diagnosis Comments EGFR Routine 10/13/2024 8:12 PM DRY PAN CHARGER PROTIME-INR STAT 10/13/2024 8:12 PM DRY PAN CHARGER CBC WITHOUT DIFFERENTIAL Routine 10/13/2024 8:12 PM DRY PAN CHARGER HEPATIC FUNCTION PANEL Routine 8:12 PM DRY PAN CHARGER BASIC METABOLIC PANEL Routine 10/13/2024 8:12 PM DRY PAN CHARGER PEP THERAPY Routine 10/13/2024 12:00 PM DRY PAN CHARGER US VEIN DUPLEX LOWER EXTREMITY BILATERAL COMPLETE IP Routine 10/13/2024 9:43 AM DRY PAN CHARGER APTT STAT 10/13/2024 6:24 AM DRY PAN CHARGER PEP THERAPY Routine 10/13/2024 6:01 AM DRY PAN CHARGER EGFR Routine 10/12/2024 9:40 PM DRY PAN CHARGER APTT Routine 10/12/2024 9:40 PM DRY PAN CHARGER CBC WITHOUT DIFFERENTIAL Routine 10/12/2024 9:40 PM DRY PAN CHARGER BASIC METABOLIC PANEL Routine 10/12/2024 9:40 PM DRY PAN CHARGER PEP THERAPY Routine 10/12/2024 6:00 PM DRY PAN CHARGER PEP THERAPY Routine 10/12/2024 12:00 PM DRY PAN CHARGER APTT STAT 10/12/2024 6:21 AM DRY PAN CHARGER PEP THERAPY Routine 10/12/2024 6:01 AM DRY PAN CHARGER APTT STAT 10/12/2024 12:54 AM DRY PAN CHARGER EGFR Routine 10/11/2024 9:52 PM DRY PAN CHARGER CBC WITHOUT DIFFERENTIAL Routine 10/11/2024 9:52 PM DRY PAN CHARGER BASIC METABOLIC PANEL Routine 10/11/2024 9:52 PM DRY PAN CHARGER PEP THERAPY Routine 10/11/2024 6:00 PM DRY PAN CHARGER APTT STAT 10/11/2024 5:30 PM DRY PAN CHARGER PEP THERAPY Routine 10/11/2024 12:00 PM DRY PAN CHARGER PEP THERAPY Routine 10/11/2024 6:01 AM DRY PAN CHARGER PEP THERAPY Routine 10/11/2024 12:00 AM DRY PAN CHARGER EGFR Routine 10/10/2024 8:04 PM DRY PAN CHARGER APTT STAT 10/10/2024 8:04 PM DRY PAN CHARGER APTT STAT 10/10/2024 8:04 PM DRY PAN CHARGER PROTIME-INR STAT 10/10/2024 8:04 PM DRY PAN CHARGER CBC WITHOUT DIFFERENTIAL Routine 10/10/2024 8:04 PM DRY PAN CHARGER BASIC METABOLIC PANEL Routine 10/10/2024 8:04 PM DRY PAN CHARGER PEP THERAPY Routine 10/10/2024 12:00 PM DRY PAN CHARGER CBC WITHOUT DIFFERENTIAL STAT 10/10/2024 11:51 AM DRY PAN CHARGER APTT STAT 10/10/2024 11:36 AM DRY PAN CHARGER PROTIME-INR STAT 10/10/2024 11:36 AM DRY PAN CHARGER PEP THERAPY Routine 10/10/2024 6:01 AM DRY PAN CHARGER EGFR Routine 10/10/2024 3:19 AM DRY PAN CHARGER CBC WITHOUT DIFFERENTIAL Routine 10/10/2024 3:19 AM DRY PAN CHARGER BASIC METABOLIC PANEL Routine 10/10/2024 3:19 AM DRY PAN CHARGER PEP THERAPY Routine 10/10/2024 12:00 AM DRY PAN CHARGER POCT GLUCOSE DEVICE Routine 10/09/2024 8 :41 PM DRY PAN CHARGER PEP THERAPY Routine 10/09/2024 6:00 PM DRY PAN CHARGER US VEIN DUPLEX LOWER EXTREMITY BILATERAL COMPLETE ED Urgent/IP Urgent 10/09/2024 10:08 AM DRY PAN CHARGER XR CHEST 1 VIEW IP Routine 10/09/2024 7:55 AM DRY PAN CHARGER PEP THERAPY Routine 10/09/2024 6:01 AM DRY PAN CHARGER PEP THERAPY Routine 10/09/2024 12:00 AM DRY PAN CHARGER EGFR Timed 10/08/2024 10:15 PM DRY PAN CHARGER CBC WITHOUT DIFFERENTIAL Routine 10/08/2024 10:15 PM DRY PAN CHARGER PHOSPHORUS Timed 10/08/2024 10:15 PM DRY PAN CHARGER MAGNESIUM Timed 10/08/2024 10:15 PM DRY PAN CHARGER COMPREHENSIVE METABOLIC PANEL Timed 10/08/2024 10:15 PM DRY PAN CHARGER PEP THERAPY Routine 10/08/2024 6:00 PM DRY PAN CHARGER PEP THERAPY Routine 10/08/2024 12:00 PM DRY PAN CHARGER TROPONIN I HIGH-SENSITIVITY STAT 10/08/2024 11:36 AM DRY PAN CHARGER LACTATE Timed 10/08/2024 8:38 AM DRY PAN CHARGER PEP THERAPY Routine 10/08/2024 6:00 AM DRY PAN CHARGER EGFR Routine 10/07/2024 10:19 PM DRY PAN CHARGER CBC WITHOUT DIFFERENTIAL Routine 10/07/2024 10:19 PM DRY PAN CHARGER BASIC METABOLIC PANEL Routine 10/07/2024 10:19 PM DRY PAN CHARGER LACTATE, WHOLE BLOOD Timed 10/07/2024 9:09 AM DRY PAN CHARGER URINALYSIS AND REFLEX TO MICROSCOPIC AND CULTURE Routine 10/07/2024 5:37 AM DRY PAN CHARGER BLOOD CULTURE STAT 10/07/2024 5:37 AM DRY PAN CHARGER BLOOD CULTURE STAT 10/07/2024 5:37 AM DRY PAN CHARGER URINALYSIS, MICROSCOPIC ONLY Routine 10/07/2024 5:37 AM DRY PAN CHARGER XR CHEST 1 VIEW IP Routine 10/07/2024 5:18 AM DRY PAN CHARGER PEP THERAPY Routine 10/07/2024 12:00 AM DRY PAN CHARGER LACTATE, WHOLE BLOOD Routine 10/06/2024 9:30 PM DRY PAN CHARGER EGFR Routine 10/06/2024 9:16 PM DRY PAN CHARGER CBC WITHOUT DIFFERENTIAL Routine 10/06/2024 9:16 PM DRY PAN CHARGER BASIC METABOLIC PANEL Routine 10/06/2024 9:16 PM DRY PAN CHARGER PEP THERAPY Routine 10/06/2024 6:00 PM DRY PAN CHARGER PEP THERAPY Routine 10/06/2024 12:00 PM DRY PAN CHARGER PEP THERAPY Routine 10/06/2024 6:01 AM DRY PAN CHARGER EGFR Routine 10/05/2024 10:43 PM DRY PAN CHARGER LACTATE, WHOLE BLOOD Routine 10/05/2024 10:43 PM DRY PAN CHARGER CBC WITHOUT DIFFERENTIAL Routine 10/05/2024 10:43 PM DRY PAN CHARGER BASIC METABOLIC PANEL Routine 10/05/2024 10:43 PM DRY PAN CHARGER PEP THERAPY Routine 10/05/2024 6:12 PM DRY PAN CHARGER PEP THERAPY Routine 10/05/2024 6:12 PM DRY PAN CHARGER TROPONIN I HIGH-SENSITIVITY Routine 10/04/2024 8:49 PM DRY PAN CHARGER CALCIUM,IONIZED, WHOLE BLOOD Routine 10/04/2024 8:49 PM DRY PAN CHARGER EGFR Routine 10/04/2024 8:49 PM DRY PAN CHARGER DIFFERENTIAL AUTO Routine 10/04/2024 8:4 9 PM DRY PAN CHARGER CBC WITH AUTO DIFFERENTIAL Routine 10/04/2024 8:49 PM DRY PAN CHARGER LACTATE, WHOLE BLOOD Routine 10/04/2024 8:49 PM DRY PAN CHARGER BASIC METABOLIC PANEL Routine 10/04/2024 8:49 PM DRY PAN CHARGER URINALYSIS AND REFLEX TO MICROSCOPIC AND CULTURE STAT 10/04/2024 1:30 PM DRY PAN CHARGER URINALYSIS, MICROSCOPIC ONLY STAT 10/04/2024 1:30 PM DRY PAN CHARGER LACTATE, WHOLE BLOOD STAT 10/04/2024 12:12 PM DRY PAN CHARGER TROPONIN I HIGH-SENSITIVITY 2-HOUR Timed 10/04/2024 12:06 PM DRY PAN CHARGER INFLUENZA A/B, RSV, AND COVID-19 PCR Routine 10/04/2024 9:06 AM DRY PAN CHARGER TROPONIN I HIGH-SENSITIVITY SERIES (BASELINE, 2HR, 4HR, 6HR) Routine 10/04/2024 9:06 AM DRY PAN CHARGER LACTATE STAT 10/04/2024 9:06 AM DRY PAN CHARGER CRITICAL RESULT CALLBACK CHEMISTRY STAT 10/04/2024 9:06 AM DRY PAN CHARGER EGFR Routine 10/03/2024 10:36 PM DRY PAN CHARGER BASIC METABOLIC PANEL Routine 10/03/2024 10:36 PM DRY PAN CHARGER DIFFERENTIAL AUTO Routine 10/03/2024 8:3 0 PM DRY PAN CHARGER CBC WITH AUTO DIFFERENTIAL Routine 10/03/2024 8:30 PM DRY PAN CHARGER EGFR STAT 10/03/2024 8:25 PM DRY PAN CHARGER BASIC METABOLIC PANEL STAT 10/03/2024 8:25 PM DRY PAN CHARGER ECG 12-LEAD Routine 10/03/2024 2:19 PM DRY PAN CHARGER POCT GLUCOSE DEVICE Routine 10/03/2024 2 :07 PM DRY PAN CHARGER EGFR Routine 10/03/2024 4:58 AM DRY PAN CHARGER DIFFERENTIAL AUTO Routine 10/03/2024 4:5 8 AM DRY PAN CHARGER CBC WITH AUTO DIFFERENTIAL Routine 10/03/2024 4:58 AM DRY PAN CHARGER BASIC METABOLIC PANEL Routine 10/03/2024 4:58 AM DRY PAN CHARGER XR CHEST 1 VIEW IP Routine 10/02/2024 9:08 PM DRY PAN CHARGER EGFR STAT 10/02/2024 4:01 PM DRY PAN CHARGER DIFFERENTIAL AUTO STAT 10/02/2024 4:0 1 PM DRY PAN CHARGER CBC WITH AUTO DIFFERENTIAL STAT 10/02/2024 4:01 PM DRY PAN CHARGER APTT STAT 10/02/2024 4:01 PM DRY PAN CHARGER PROTIME-INR STAT 10/02/2024 4:01 PM DRY PAN CHARGER PHOSPHORUS STAT 10/02/2024 4:01 PM DRY PAN CHARGER MAGNESIUM STAT 10/02/2024 4:01 PM DRY PAN CHARGER COMPREHENSIVE METABOLIC PANEL STAT 10/02/2024 4:01 PM DRY PAN CHARGER POC BLOOD GAS AND CHEMISTRIES, ARTERIAL Routine 10/02/2024 2:30 PM DRY PAN CHARGER FL FLUOROSCOPY < 1 HOUR IP Routine 10/02/2024 2:00 PM DRY PAN CHARGER POC BLOOD GAS AND CHEMISTRIES, ARTERIAL Routine 10/02/2024 10:43 AM DRY PAN CHARGER SPINAL CORD MONITORING 7:29 AM DRY PAN CHARGER Thoracic myelopathy Case Notes [email or web address] Celine via email add Dr. David HEBERT LAMINECTOMY THORACIC DECOMPRESSION 10/02/2024 7:29 AM DRY PAN CHARGER Thoracic myelopathy Case Notes [email or web address] Celine via email add Dr. David HEBERT FUSION SPINAL - POSTERIOR LUMBAR/THORACIC WITH INSTRUMENTATION 10/02/2024 7:29 AM DRY PAN CHARGER Thoracic myelopathy Case Notes [email or web address] Celine via email add Dr. David HEBERT TYPE AND SCREEN STAT 10/02/2024 6:18 AM DRY PAN CHARGER documented in this encounter Results * (ABNORMAL) Hepatic function panel (10/13/2024 8:12 PM DRY PAN CHARGER) Bilirubin, total 0.2 0.1 - 1.2 mg/dL Bilirubin, direct <0.2 0.1 - 0.3 mg/dL [facility] Protein, pl 5.8(L) 6.5 - 8.5 g/dL [facility] Albumin 3.4(L) 3.5 - 5.0 g/dL [facility] Alk phos 59 40 - 130 Units/L [facility] ALT 28 7 - 55 Units/L [facility] AST 26 10 - 50 Units/L [facility] Comment:Hemolyzed; result ma y be falsely elevated Blood 10/13/2024 8:1 2 PM DRY PAN CHARGER 10/13/2024 8:23 PM DRY PAN CHARGER us James Robles MD LAB BLOOD ORDERABLES Final Resu lt Performing Organization Address City/[facility]/ZIP Co de Phone Number REYNALDO MAHARAJ [facility] Department [place] [address] * eGFR (10/13/2024 8:12 PM DRY PAN CHARGER) eGFR 60 >=60 mL/min/1. 73 m2 Comment: [...] last reviewed 2021. Blood 10/13/2024 8:12 PM DRY PAN CHARGER 10/13/2024 8:37 PM DRY PAN CHARGER James Robles MD LAB BLOOD ORDERABLES Final Resu lt Performing Organization Address [facility]/ZIP Co de Phone Number REYNALDO [facility] Department [place] [address] * Protime-INR (10/13/2024 8:12 PM DRY PAN CHARGER) Pathologist [facility] PT 11.5 9.7 - 13.0 sec INR 1.06 0.90 - 1.20 [facility] Comment: Interpretive data Oral anticoagulant therapeutic ranges: Venous thromboembolism prophylaxis or treatment: 2.0-3.0 CARDIOLOGY Standard range: 2.0-3.0 High-intensity range: 2.5-3.5 Refer to indication-specific guidelines for appropriate target ranges for prosthetic heart valve replacement. Current interpretive data was last revised on 2019. Blood 10/13/2024 8:12 PM DRY PAN CHARGER 10/13/2024 8:32 PM DRY PAN CHARGER Narrative [facility] - 10/13/2024 8:38 PM DRY PAN CHARGER Baseline prior to apixaban initiation. Meghan Carranza MANAGER PUBLISHING LAB BLOOD ORDERABLES [facility] al Result [facility] Department [place] [address] * (ABNORMAL) CBC without differential (10/13/2024 8:12 PM DRY PAN CHARGER) Pathologist [facility] WBC 17.1(H) 3.8 - 9.9 K/cumm Hgb 12.1(L) 13.0 - 17.5 g/dL [facility] Hct 37.0(L) 38.9 - 50.3 % [facility] Plt 214 150 - 400 K/cumm [facility] MPV 10.1 9.1 - 12.3 fL [facility] RBC 3.76(L) 4.30 - 5.80 M/cumm [facility] MCV 98.4(H) 81.3 - 96.4 fL [facility] MCH 32.2 27.1 - 33.3 pg [facility] MCHC 32.7 32.3 - 35.7 g/dL [facility] RDW CV 14.6 11.1 - 14.9 % [facility] RDW SD 52.2(H) 35.7 - 48.1 fL [facility] NRBC abs 0.00 0.00 - 0.01 K/cumm [facility] Blood 10/13/2024 8:12 PM DRY PAN CHARGER 10/13/2024 8:26 PM DRY PAN CHARGER us Maria Isabel Unger NP LAB BLOOD ORDERABLES Final Result Performing Organization Address [facility] Phone Number [facility] Department [place] [address] * (ABNORMAL) Basic metabolic panel (10/13/2024 8:12 PM DRY PAN CHARGER) Sodium 140 135 - 145 mmol/L Potassium, pl 4.7 3.3 - 4.9 mmol/L [facility] Comment:Hemolyzed; Potassium value may be falsely elevated by as much as 0.3-0.5 mmol/L. Suggest redraw and reanalysis. Chloride 107 97 - 110 mmol/L [facility] CO2 23 22 - 32 mmol/L [facility] Anion gap 10 2 - 15 mmol/L [facility] BUN 26(H) 6 - 25 mg/dL [facility] Creatinine 1.25 0.80 - 1.30 mg/dL [facility] Glucose 96 70 - 199 mg/dL [facility] Comment: Interpretive Data Fasting glucose >/= 126 [...] 2022. Calcium 8.9 8.5 - 10.3 mg/dL [facility] Blood 10/13/2024 8:12 PM DRY PAN CHARGER 10/13/2024 8:23 PM DRY PAN CHARGER us James Robles MD LAB BLOOD ORDERABLES Final Resu lt [facility] Department [place] [address] * US Vein Duplex Lower Extremity Bilateral Complete (10/13/2024 9:43 AM DRY PAN CHARGER) Anatomical Region Laterality Modality Vascular Bilateral Ultrasound 10/13/2024 9:05 AM DRY PAN CHARGER Narrative 10/13/2024 1:52 PM DRY PAN CHARGER [facility] - Department of Vascular Surgery, Vascular Laboratory [address] [place] [id number] Lower Extremity Venous Ultrasound Report Patient Name: LILI DELGADO F : 1950 (74y ) Study Date: 10/13/2024 9:05:32 AM Gender: M Tech: Location: [id number] Ref Provider: MEGHAN CARRANZA Quality: Adequate Order Provider: MEGHAN CARRANZA PROCEDURES: Vascular Report: Venous Duplex imaging was performed bilaterally in the lower extremities. The common femoral, femoral, popliteal, posterior tibial, peroneal veins were evaluated for patency, spontaneity and phasicity with Doppler, compression and augmentation maneuvers. Great saphenous vein proximal at the junction was evaluated with compression maneuvers. INDICATIONS: hx of DVT- re-assess thrombus size per hematology - FINDINGS: Performing Dialysis Equipment Technician: Jessica Aguilar RVT. Right: Duplex scan reveals [...] called on the above date to Meghan Carranza NP at 9:40am. CONCLUSIONS: 1. There is [...] Tyshawn Mullins MD FACS 10/13/2024 1:52:11 PM DRY PAN CHARGER Procedure Note Tyshawn Mullins MD - 10/13/2024 [facility] - Department of Vascular Surgery,Vascular Laboratory [address] [place] [address] Lower Extremity Venous Ultrasound Report Patient Name: LILI DELGADO F : 1950 (74y ) Study Date: 10/13/2024 9:05:32 AM Gender: M Tech: Location: [id number] Ref Provider: MEGHAN CARRANZA Quality: Adequate Order Provider: MEGHAN CARRANZA PROCEDURES: Vascular Report: Venous Duplex imaging was performed bilaterally in the lower extremities.The common femoral, femoral, popliteal, posterior tibial, peroneal veins wereevaluated for patency, spontaneity and phasicity with Doppler, compression and augmentationmaneuvers. Great saphenous vein proximal at the junction was evaluated with compressionmaneuvers. INDICATIONS: hx of DVT- re-assess thrombus size per hematology - FINDINGS: Performing Dialysis Equipment Technician: Jessica Aguilar RVT. Right: Duplex scan reveals [...] called on the above date to Meghan Carranza NP at 9:40am. CONCLUSIONS: 1. There is [...] above. Electronically Signed By: Tyshawn Mullins MD [facility] 10/13/2024 1:52:11 PM DRY PAN CHARGER us Meghan Carranza NP IMG US PROCEDURES Final Result * (ABNORMAL) aPTT (10/13/2024 6:24 AM DRY PAN CHARGER) aPTT 55(H) 28 - 38 sec Comment: Interpretive Data Heparin therapeutic range: 66.0 - 100.0 seconds. Range based on correlation with therapeutic heparin activity range of 0.3 - 0.7 Units/mL. Current interpretive data was last revised on 2023. Blood 10/13/2024 6:24 AM DRY PAN CHARGER 10/13/2024 6:52 AM DRY PAN CHARGER Marco JACOBS [facility] - 10/13/2024 7:17 AM DRY PAN CHARGER STAT PTT timing: - Draw 6 hours [...] ORDERABLES Final Resu lt Performing Organization Address City/[facility]/ZIP Co de Phone Number REYNALDO CARSON [facility] Department [place] [address] * (ABNORMAL) eGFR (10/12/2024 9:40 PM DRY PAN CHARGER) eGFR 49(L) >=60 mL/min/1. 73 m2 Comment: [...] last reviewed 2021. Blood 10/12/2024 9:40 PM DRY PAN CHARGER 10/12/2024 11:24 PM DRY PAN CHARGER James Robles MD LAB BLOOD ORDERABLES Final Resu lt Performing Organization Address City/[facility]/ZIP Co de Phone Number [facility] [place] [place] [address] * (ABNORMAL) aPTT (10/12/2024 9:40 PM DRY PAN CHARGER) [facility] aPTT 57(H) 28 - 38 sec Comment: Interpretive Data Heparin therapeutic range: 66.0 - 100.0 seconds. Range based on correlation with therapeutic heparin activity range of 0.3 - 0.7 Units/mL. Current interpretive data was last revised on 2023. Blood 10/12/2024 9:40 PM DRY PAN CHARGER 10/12/2024 11:26 PM DRY PAN CHARGER Meghan Carranza MANAGER PUBLISHING LAB BLOOD ORDERABLES Fin al Result [facility] [place] [address] * (ABNORMAL) CBC without differential (10/12/2024 9:40 PM DRY PAN CHARGER) [facility] WBC 13.9(H) 3.8 - 9.9 K/cumm Hgb 11.4(L) 13.0 - 17.5 g/dL [facility] Hct 35.0(L) 38.9 - 50.3 % [facility] Plt 232 150 - 400 K/cumm [facility] MPV 10.5 9.1 - 12.3 fL [facility] RBC 3.59(L) 4.30 - 5.80 M/cumm [facility] MCV 97.5(H) 81.3 - 96.4 fL [facility] MCH 31.8 27.1 - 33.3 pg [facility] MCHC 32.6 32.3 - 35.7 g/dL [facility] RDW CV 14.6 11.1 - 14.9 % [facility] RDW SD 51.2(H) 35.7 - 48.1 fL [facility] NRBC abs 0.00 0.00 - 0.01 K/cumm [facility] Blood 10/12/2024 9:40 PM DRY PAN CHARGER 10/12/2024 11:24 PM DRY PAN CHARGER us Maria Isabel Unger NP LAB BLOOD ORDERABLES Final Result [facility] Department [place] [address] * (ABNORMAL) Basic metabolic panel (10/12/2024 9:40 PM DRY PAN CHARGER) [facility] Sodium 144 135 - 145 mmol/L Potassium, pl 4.4 3.3 - 4.9 mmol/L [facility] Chloride 109 97 - 110 mmol/L [facility] CO2 27 22 - 32 mmol/L [facility] Anion gap 8 2 - 15 mmol/L [facility] BUN 28(H) 6 - 25 mg/dL [facility] Creatinine 1.48(H) 0.80 - 1.30 mg/dL [facility] Glucose 110 70 - 199 mg/dL [facility] Comment: Interpretive Data Fasting glucose >/= 126 [...] 2022. Calcium 8.4(L) 8.5 - 10.3 mg/dL [facility] Blood 10/12/2024 9:40 PM DRY PAN CHARGER 10/12/2024 11:24 PM DRY PAN CHARGER us James Robles MD LAB BLOOD ORDERABLES Final Resu lt Performing Organization Address City/[facility]/ZIP Co de Phone Number [facility] Department [place] [address] * (ABNORMAL) aPTT (10/12/2024 6:21 AM DRY PAN CHARGER) aPTT 51(H) 28 - 38 sec Comment: Interpretive Data Heparin therapeutic range: 66.0 - 100.0 seconds. Range based on correlation with therapeutic heparin activity range of 0.3 - 0.7 Units/mL. Current interpretive data was last revised on 2023. Blood 10/12/2024 6:21 AM DRY PAN CHARGER 10/12/2024 6:49 AM DRY PAN CHARGER Narrative [facility] - 10/12/2024 6:56 AM DRY PAN CHARGER STAT PTT timing: - Draw 6 hours [...] ORDERABLES Final Resu lt REYNALDO MAHARAJ [facility] [place] [address] * (ABNORMAL) aPTT (10/12/2024 12:54 AM DRY PAN CHARGER) aPTT 51(H) 28 - 38 sec Comment: Interpretive Data Heparin therapeutic range: 66.0 - 100.0 seconds. Range based on correlation with therapeutic heparin activity range of 0.3 - 0.7 Units/mL. Current interpretive data was last revised on 2023. Blood 10/12/2024 12:5 4 AM DRY PAN CHARGER 10/12/2024 1:09 AM DRY PAN CHARGER Narrative [facility] - 10/12/2024 1:17 AM DRY PAN CHARGER STAT PTT timing: - Draw 6 hours [...] LAB BLOOD ORDERABLES Final Resu lt [facility] [place] [address] * (ABNORMAL) eGFR (10/11/2024 9:52 PM DRY PAN CHARGER) [facility] eGFR 42(L) >=60 mL/min/1. 73 m2 Comment: [...] last reviewed 2021. Blood 10/11/2024 9:52 PM DRY PAN CHARGER 10/11/2024 11:34 PM DRY PAN CHARGER us James Robles MD LAB BLOOD ORDERABLES Final Resu lt [facility] [place] [address] * (ABNORMAL) CBC without differential (10/11/2024 9:52 PM DRY PAN CHARGER) WBC 15.3(H) 3.8 - 9.9 K/cumm Hgb 10.9(L) 13.0 - 17.5 g/dL [facility] Hct 33.4(L) 38.9 - 50.3 % [facility] Plt 234 150 - 400 K/cumm [facility] MPV 10.4 9.1 - 12.3 fL [facility] RBC 3.47(L) 4.30 - 5.80 M/cumm [facility] MCV 96.3 81.3 - 96.4 fL [facility] MCH 31.4 27.1 - 33.3 pg [facility] MCHC 32.6 32.3 - 35.7 g/dL [facility] RDW CV 14.3 11.1 - 14.9 % [facility] RDW SD 49.6(H) 35.7 - 48.1 fL [facility] NRBC abs 0.00 0.00 - 0.01 K/cumm [facility] Blood 10/11/2024 9:52 PM DRY PAN CHARGER 10/11/2024 11:34 PM DRY PAN CHARGER us Maria Isabel Unger NP LAB BLOOD ORDERABLES Final Result [facility] [place] [address] * (ABNORMAL) Basic metabolic panel (10/11/2024 9:52 PM DRY PAN CHARGER) Sodium 141 135 - 145 mmol/L Potassium, pl 4.6 3.3 - 4.9 mmol/L [facility] Chloride 107 97 - 110 mmol/L [facility] CO2 27 22 - 32 mmol/L [facility] Anion gap 7 2 - 15 mmol/L [facility] BUN 35(H) 6 - 25 mg/dL [facility] Creatinine 1.68(H) 0.80 - 1.30 mg/dL [facility] Glucose 115 70 - 199 mg/dL [facility] Comment: Interpretive Data Fasting glucose >/= 126 [...] 2022. Calcium 8.1(L) 8.5 - 10.3 mg/dL [facility] Blood 10/11/2024 9:52 PM DRY PAN CHARGER 10/11/2024 11:34 PM DRY PAN CHARGER us James Robles MD LAB BLOOD ORDERABLES Final Resu lt [facility] Department [place] [address] * aPTT (10/11/2024 5:30 PM DRY PAN CHARGER) aPTT 33 28 - 38 sec Comment: Interpretive Data Heparin therapeutic range: 66.0 - 100.0 seconds. Range based on correlation with therapeutic heparin activity range of 0.3 - 0.7 Units/mL. Current interpretive data was last revised on 2023. Blood 10/11/2024 5:30 PM DRY PAN CHARGER 10/11/2024 5:59 PM DRY PAN CHARGER Narrative REYNALDO MAHARAJ - 10/11/2024 6:07 PM DRY PAN CHARGER STAT PTT timing: - Draw 6 hours [...] MD LAB BLOOD ORDERABLES Final Resu lt [facility] [place] [address] * (ABNORMAL) eGFR (10/10/2024 8:04 PM DRY PAN CHARGER) eGFR 45(L) >=60 mL/min/1. 73 m2 Comment: [...] last reviewed 2021. Blood 10/10/2024 8:04 PM DRY PAN CHARGER 10/10/2024 8:34 PM DRY PAN CHARGER Result [facility] James Robles MD LAB BLOOD ORDERABLES Final Resu lt Performing Organization Address [facility] Co de Phone Number [facility] [place] [address] * (ABNORMAL) aPTT (10/10/2024 8:04 PM DRY PAN CHARGER) aPTT 22(L) 28 - 38 sec Comment: Interpretive Data Heparin therapeutic range: 66.0 - 100.0 seconds. Range based on correlation with therapeutic heparin activity range of 0.3 - 0.7 Units/mL. Current interpretive data was last revised on 2023. Blood 10/10/2024 8:04 PM DRY PAN CHARGER 10/10/2024 8:24 PM DRY PAN CHARGER Result [facility] James Robles MD LAB BLOOD ORDERABLES Final Resu lt Performing Organization Address [facility] de Phone Number [facility] [place] [address] * Protime-INR (10/10/2024 8:04 PM DRY PAN CHARGER) PT 12.0 9.7 - 13.0 sec INR 1.11 0.90 - 1.20 [facility] Comment: Interpretive data Oral anticoagulant therapeutic ranges: Venous thromboembolism prophylaxis or treatment: 2.0-3.0 CARDIOLOGY Standard range: 2.0-3.0 High-intensity range: 2.5-3.5 Refer to indication-specific guidelines for appropriate target ranges for prosthetic heart valve replacement. Current interpretive data was last revised on 2019. Blood 10/10/2024 8:04 PM DRY PAN CHARGER 10/10/2024 8:24 PM DRY PAN CHARGER James Robles MD LAB BLOOD ORDERABLES Final Resu lt Performing Organization Address [facility] Co de Phone Number [facility] Department [place] [address] * (ABNORMAL) aPTT (10/10/2024 8:04 PM DRY PAN CHARGER) Pathologist [facility] aPTT 22(L) 28 - 38 sec Comment: Interpretive Data Heparin therapeutic range: 66.0 - 100.0 seconds. Range based on correlation with therapeutic heparin activity range of 0.3 - 0.7 Units/mL. Current interpretive data was last revised on 2023. Blood 10/10/2024 8:04 PM DRY PAN CHARGER 10/10/2024 8:24 PM DRY PAN CHARGER Narrative [facility] - 10/10/2024 8:33 PM DRY PAN CHARGER STAT PTT timing: - Draw 6 hours [...] ORDERABLES Final Resu lt Performing Organization Address City/[facility]/ZIP Co de Phone Number [facility] [place] [address] * (ABNORMAL) CBC without differential (10/10/2024 8:04 PM DRY PAN CHARGER) Pathologist [facility] WBC 17.1(H) 3.8 - 9.9 K/cumm Hgb 11.6(L) 13.0 - 17.5 g/dL [facility] Hct 34.3(L) 38.9 - 50.3 % [facility] Plt 260 150 - 400 K/cumm [facility] MPV 10.3 9.1 - 12.3 fL [facility] RBC 3.62(L) 4.30 - 5.80 M/cumm [facility] MCV 94.8 81.3 - 96.4 fL [facility] MCH 32.0 27.1 - 33.3 pg [facility] MCHC 33.8 32.3 - 35.7 g/dL [facility] RDW CV 14.2 11.1 - 14.9 % [facility] RDW SD 48.3(H) 35.7 - 48.1 fL [facility] NRBC abs 0.00 0.00 - 0.01 K/cumm [facility] Blood 10/10/2024 8:04 PM DRY PAN CHARGER 10/10/2024 8:34 PM DRY PAN CHARGER Maria Isabel Unger NP LAB BLOOD ORDERABLES Final Result [facility] Department of Laboratories [place] [address] * (ABNORMAL) Basic metabolic panel (10/10/2024 8:04 PM DRY PAN CHARGER) Sodium 140 135 - 145 mmol/L Potassium, pl 4.6 3.3 - 4.9 mmol/L [facility] Chloride 105 97 - 110 mmol/L [facility] CO2 24 22 - 32 mmol/L [facility] Anion gap 11 2 - 15 mmol/L [facility] BUN 32(H) 6 - 25 mg/dL [facility] Creatinine 1.59(H) 0.80 - 1.30 mg/dL [facility] Glucose 108 70 - 199 mg/dL [facility] Comment: Interpretive Data Fasting glucose >/= 126 [...] 2022. Calcium 8.4(L) 8.5 - 10.3 mg/dL [facility] Blood 10/10/2024 8:04 PM DRY PAN CHARGER 10/10/2024 8:34 PM DRY PAN CHARGER us James Robles MD LAB BLOOD ORDERABLES Final Resu lt [facility] Department [place] [address] * (ABNORMAL) CBC without differential (10/10/2024 11:51 AM DRY PAN CHARGER) WBC 21.0(H) 3.8 - 9.9 K/cumm Hgb 12.0(L) 13.0 - 17.5 g/dL [facility] Hct 36.7(L) 38.9 - 50.3 % [facility] Plt 272 150 - 400 K/cumm [facility] MPV 10.4 9.1 - 12.3 fL [facility] RBC 3.84(L) 4.30 - 5.80 M/cumm [facility] MCV 95.6 81.3 - 96.4 fL [facility] MCH 31.3 27.1 - 33.3 pg [facility] MCHC 32.7 32.3 - 35.7 g/dL [facility] RDW CV 14.0 11.1 - 14.9 % [facility] RDW SD 47.8 35.7 - 48.1 fL [facility] NRBC abs 0.00 0.00 - 0.01 K/cumm [facility] Blood 10/10/2024 11:5 1 AM DRY PAN CHARGER 10/10/2024 12:26 PM DRY PAN CHARGER Narrative [facility] - 10/10/2024 12:37 PM DRY PAN CHARGER Baseline prior to heparin initiation Result [facility] James Robles MD LAB BLOOD ORDERABLES Final Resu lt Performing Organization Address [facility] Co de Phone Number [facility] [place] [address] * (ABNORMAL) aPTT (10/10/2024 11:36 AM DRY PAN CHARGER) aPTT 23(L) 28 - 38 sec Comment: Interpretive Data Heparin therapeutic range: 66.0 - 100.0 seconds. Range based on correlation with therapeutic heparin activity range of 0.3 - 0.7 Units/mL. Current interpretive data was last revised on 2023. Blood 10/10/2024 11:3 6 AM DRY PAN CHARGER 10/10/2024 11:47 AM DRY PAN CHARGER Narrative [facility] - 10/10/2024 12:16 PM DRY PAN CHARGER Baseline prior to heparin initiation Result [facility] James Robles MD LAB BLOOD ORDERABLES Final Resu lt Performing Organization Address [facility] [place] [address] * Protime-INR (10/10/2024 11:36 AM DRY PAN CHARGER) PT 11.3 9.7 - 13.0 sec INR 1.05 0.90 - 1.20 [facility] Comment: Interpretive data Oral anticoagulant therapeutic ranges: Venous thromboembolism prophylaxis or treatment: 2.0-3.0 CARDIOLOGY Standard range: 2.0-3.0 High-intensity range: 2.5-3.5 Refer to indication-specific guidelines for appropriate target ranges for prosthetic heart valve replacement. Current interpretive data was last revised on 2019. Blood 10/10/2024 11:3 6 AM DRY PAN CHARGER 10/10/2024 11:47 AM DRY PAN CHARGER Narrative [facility] - 10/10/2024 12:16 PM DRY PAN CHARGER Baseline prior to heparin initiation James Robles MD LAB BLOOD ORDERABLES Final Resu lt Performing Organization Address [facility] Co de Phone Number [facility] [place] [address] * (ABNORMAL) eGFR (10/10/2024 3:19 AM DRY PAN CHARGER) eGFR 53(L) >=60 mL/min/1. 73 m2 Comment: [...] last reviewed 2021. Blood 10/10/2024 3:19 AM DRY PAN CHARGER 10/10/2024 5:57 AM DRY PAN CHARGER James Robles MD LAB BLOOD ORDERABLES Final Resu lt Performing Organization Address City/[facility]/ZIP Co de Phone Number [facility]LDO MAHARAJ [facility] Department [place] [address] * (ABNORMAL) CBC without differential (10/10/2024 3:19 AM DRY PAN CHARGER) [facility] WBC 18.6(H) 3.8 - 9.9 K/cumm Hgb 11.7(L) 13.0 - 17.5 g/dL [facility] Hct 35.3(L) 38.9 - 50.3 % [facility] Plt 234 150 - 400 K/cumm [facility] MPV 10.4 9.1 - 12.3 fL [facility] RBC 3.69(L) 4.30 - 5.80 M/cumm [facility] MCV 95.7 81.3 - 96.4 fL [facility] MCH 31.7 27.1 - 33.3 pg [facility] MCHC 33.1 32.3 - 35.7 g/dL [facility] RDW CV 14.1 11.1 - 14.9 % [facility] RDW SD 48.1 35.7 - 48.1 fL [facility] NRBC abs 0.00 0.00 - 0.01 K/cumm [facility] Blood 10/10/2024 3:19 AM DRY PAN CHARGER 10/10/2024 6:01 AM DRY PAN CHARGER Maria Isabel Unger NP LAB BLOOD ORDERABLES Final Result [facility] Department [place] [address] * (ABNORMAL) Basic metabolic panel (10/10/2024 3:19 AM DRY PAN CHARGER) [facility] Sodium 141 135 - 145 mmol/L Potassium, pl 4.2 3.3 - 4.9 mmol/L [facility] Chloride 106 97 - 110 mmol/L [facility] CO2 27 22 - 32 mmol/L [facility] Anion gap 8 2 - 15 mmol/L [facility] BUN 34(H) 6 - 25 mg/dL [facility] Creatinine 1.38(H) 0.80 - 1.30 mg/dL [facility] Glucose 95 70 - 199 mg/dL [facility] Comment: Interpretive Data Fasting glucose >/= 126 [...] 2022. Calcium 8.5 8.5 - 10.3 mg/dL [facility] Blood 10/10/2024 3:19 AM DRY PAN CHARGER 10/10/2024 5:57 AM DRY PAN CHARGER James Robles MD LAB BLOOD ORDERABLES Final Resu lt Performing Organization Address [facility] Co de Phone Number [facility] [place] [address] * POCT glucose (10/09/2024 8:41 PM DRY PAN CHARGER) Glucose, POC 141 70 - 199 mg/dL Blood 10/09/2024 8:41 PM DRY PAN CHARGER 10/09/2024 8:41 PM DRY PAN CHARGER James Robles MD LAB POCT ORDERABLES - DEVICE Fi nal Result Performing Organization Address [facility] Co de Phone Number [facility] [place] [address] * US Vein Duplex Lower Extremity Bilateral Complete (10/09/2024 10:08 AM DRY PAN CHARGER) Anatomical Region Laterality Modality Vascular Bilateral Ultrasound 10/09/2024 9:49 AM DRY PAN CHARGER Narrative 10/09/2024 11:51 AM DRY PAN CHARGER [facility] - Department of Vascular Surgery, Vascular Laboratory [address] [place] [id number] Lower Extremity Venous Ultrasound Report Patient Name: LILI DELGADO F : 1950 (74y ) Study Date: 10/09/2024 9:49:45 AM Gender: M Tech: AL Location: [id number] Ref Provider: OSIRIS GUILLEN ?Quality: Adequate Order Provider: OSIRIS GUILLEN PROCEDURES: Vascular Report: Venous Duplex imaging was performed bilaterally in the lower extremities. The common femoral, femoral, popliteal, posterior tibial, peroneal veins were evaluated for patency, spontaneity and phasicity with Doppler, compression and augmentation maneuvers. Great saphenous vein proximal at the junction was evaluated with compression maneuvers. INDICATIONS: Pain in Leg, Left; Pain in Leg, Right - FINDINGS: Performing Dialysis Equipment Technician: Niurka Krishna RVT. Right: Duplex scan reveals [...] called on the above date to Osiris Guillen MANAGER PUBLISHING at 10:06 am. CONCLUSIONS: 1. There is [...] By: Tyshawn Mullins MD FACS 2024-10-09 11:50:17 DRY PAN CHARGER Procedure Note Tyshawn Mullins MD - 10/09/2024 [facility] - Department of Vascular Surgery,Vascular Laboratory [address] [place] [address] Lower Extremity Venous Ultrasound Report Patient Name: LILI DELGADO F : 1950 (74y ) Study Date: 10/09/2024 9:49:45 AM Gender: M Tech: AL Location: [id number] Ref Provider: OSIRIS GUILLEN Quality: Adequate Order Provider: OSIRIS GUILLEN PROCEDURES: Vascular Report: Venous Duplex imaging was performed bilaterally in the lower extremities.The common femoral, femoral, popliteal, posterior tibial, peroneal veins wereevaluated for patency, spontaneity and phasicity with Doppler, compression and augmentationmaneuvers. Great saphenous vein proximal at the junction was evaluated with compressionmaneuvers. INDICATIONS: Pain in Leg, Left; Pain in Leg, Right - FINDINGS: Performing Dialysis Equipment Technician: Niurka Krishna RVT. Right: Duplex scan reveals [...] called on the above date to Osiris Guillen MANAGER PUBLISHING at 10:06 am. CONCLUSIONS: 1. There is [...] above. Electronically Signed By: Tyshawn Mullins MD [facility] 2024-10-09 11:50:17 DRY PAN CHARGER us Osiris Guillen NP IMG US PROCEDURES Final Result * XR Chest 1 View (10/09/2024 7:55 AM DRY PAN CHARGER) Anatomical Region Laterality Modality Body, Chest N/A Digital Radiogra phy 10/09/2024 1:25 PM DRY PAN CHARGER Impressions 10/09/2024 4:11 PM DRY PAN CHARGER 1. ??Interval increase in left lung base atelectasis. Dictated by: Gabriel Warner M.D. The radiology attending physician has personally reviewed this study, and had reviewed and/or edited this written report and agrees with it. Electronically signed by: Austin Olsen M.D. Narrative 10/09/2024 4:11 PM DRY PAN CHARGER EXAMINATION: 1 view chest radiograph History: 74-year-old [...] it. Electronically signed by: Austin Olsen M.D. us Osiris Guillen NP IMG XR PROCEDURES Final Result * (ABNORMAL) eGFR (10/08/2024 10:15 PM DRY PAN CHARGER) eGFR 55(L) >=60 mL/min/1. 73 m2 Comment: [...] reviewed 2021. Blood 10/08/2024 10:1 5 PM DRY PAN CHARGER 10/08/2024 11:56 PM DRY PAN CHARGER us Brianna Martínez MANAGER PUBLISHING LAB BLOOD ORDERABLES Cammy l Result [facility] [place] [address] * Phosphorus (10/08/2024 10:15 PM DRY PAN CHARGER) Phosphorus, pl 3.1 2.3 - 4.5 mg/dL Blood 10/08/2024 10:1 5 PM DRY PAN CHARGER 10/08/2024 11:56 PM DRY PAN CHARGER Brianna Martínez MANAGER PUBLISHING LAB BLOOD ORDERABLES Cammy l Result [facility] Department [place] [address] * Magnesium (10/08/2024 10:15 PM DRY PAN CHARGER) Pathologist [facility] Magnesium 2.3 1.4 - 2.5 mg/dL Blood 10/08/2024 10:1 5 PM DRY PAN CHARGER 10/08/2024 11:56 PM DRY PAN CHARGER Brianna Martínez MANAGER PUBLISHING LAB BLOOD ORDERABLES Cammy l Result Performing Organization Address [facility] de Phone Number [facility] Department [place] [address] * (ABNORMAL) Comprehensive metabolic panel (10/08/2024 10:15 PM DRY PAN CHARGER) [facility] Sodium 141 135 - 145 mmol/L Potassium, pl 4.6 3.3 - 4.9 mmol/L [facility] Chloride 107 97 - 110 mmol/L [facility] CO2 25 22 - 32 mmol/L [facility] Anion gap 9 2 - 15 mmol/L [facility] BUN 33(H) 6 - 25 mg/dL [facility] Creatinine 1.33(H) 0.80 - 1.30 mg/dL [facility] Glucose 108 70 - 199 mg/dL [facility] Comment: Interpretive Data Fasting glucose >/= 126 [...] 2022. Calcium 8.6 8.5 - 10.3 mg/dL [facility] Bilirubin, total 0.3 0.1 - 1.2 mg/dL [facility] Protein, pl 4.8(L) 6.5 - 8.5 g/dL [facility] Albumin 2.9(L) 3.5 - 5.0 g/dL [facility] Alk phos 49 40 - 130 Units/L [facility] ALT 39 7 - 55 Units/L [facility] AST 19 10 - 50 Units/L [facility] Blood 10/08/2024 10:1 5 PM DRY PAN CHARGER 10/08/2024 11:56 PM DRY PAN CHARGER us Brianna Martínez NP LAB BLOOD ORDERABLES Cammy ramos Result [facility] Department [place] [address] * (ABNORMAL) CBC without differential (10/08/2024 10:15 PM DRY PAN CHARGER) Pathologist [facility] WBC 19.8(H) 3.8 - 9.9 K/cumm Hgb 11.2(L) 13.0 - 17.5 g/dL [facility] Hct 32.9(L) 38.9 - 50.3 % [facility] Plt 264 150 - 400 K/cumm [facility] MPV 10.5 9.1 - 12.3 fL [facility] RBC 3.57(L) 4.30 - 5.80 M/cumm [facility] MCV 92.2 81.3 - 96.4 fL [facility] MCH 31.4 27.1 - 33.3 pg [facility] MCHC 34.0 32.3 - 35.7 g/dL [facility] RDW CV 13.7 11.1 - 14.9 % [facility] RDW SD 45.1 35.7 - 48.1 fL [facility] NRBC abs 0.02(H) 0.00 - 0.01 K/cumm [facility] Blood 10/08/2024 10:1 5 PM DRY PAN CHARGER 10/08/2024 11:57 PM DRY PAN CHARGER us Maria Isabel Unger MANAGER PUBLISHING LAB BLOOD ORDERABLES Final Result Performing Organization Address [facility] de Phone Number [facility] Department [place] [address] * Troponin I high-sensitivity (10/08/2024 11:36 AM DRY PAN CHARGER) Pathologist [facility] Trop I hs 30 <=35 ng/L Comment: Interpretive Data For further hscTnI resources including the diagnostic algorithm and an aid in interpretation, copy and paste this link: [email or web address].testcatalog.org/[email or web address] Current Interpretive Data last revised 2020. Blood 10/08/2024 11:3 6 AM DRY PAN CHARGER 10/08/2024 11:44 AM DRY PAN CHARGER us Brianna Martínez MANAGER PUBLISHING LAB BLOOD ORDERABLES Cammy l Result Performing Organization Address [facility] Co de Phone Number [facility] Department [place] [address] * (ABNORMAL) Lactate (10/08/2024 8:38 AM DRY PAN CHARGER) [facility] Lactate 2.9(H) 0.7 - 2.0 mmol/L Blood 10/08/2024 8:38 AM DRY PAN CHARGER 10/08/2024 11:44 AM DRY PAN CHARGER Brianna Martínez MANAGER PUBLISHING LAB BLOOD ORDERABLES Cammy l Result Performing Organization Address [facility] de Phone Number [facility] Department [place] [address] * eGFR (10/07/2024 10:19 PM DRY PAN CHARGER) [facility] eGFR 62 >=60 mL/min/1. 73 m2 [...] reviewed 2021. Blood 10/07/2024 10:1 9 PM DRY PAN CHARGER 10/07/2024 11:24 PM DRY PAN CHARGER us James Robles MD LAB BLOOD ORDERABLES Final Resu lt [facility] Department [place] [address] * (ABNORMAL) CBC without differential (10/07/2024 10:19 PM DRY PAN CHARGER) WBC 17.2(H) 3.8 - 9.9 K/cumm Hgb 11.4(L) 13.0 - 17.5 g/dL [facility] Hct 32.7(L) 38.9 - 50.3 % [facility] Plt 264 150 - 400 K/cumm [facility] MPV 10.6 9.1 - 12.3 fL [facility] RBC 3.58(L) 4.30 - 5.80 M/cumm [facility] MCV 91.3 81.3 - 96.4 fL [facility] MCH 31.8 27.1 - 33.3 pg [facility] MCHC 34.9 32.3 - 35.7 g/dL [facility] RDW CV 13.2 11.1 - 14.9 % [facility] RDW SD 43.6 35.7 - 48.1 fL [facility] NRBC abs 0.00 0.00 - 0.01 K/cumm [facility] Blood 10/07/2024 10:1 9 PM DRY PAN CHARGER 10/07/2024 11:24 PM DRY PAN CHARGER Maria Isabel Ungre NP LAB BLOOD ORDERABLES Final Result [facility] Department [place] [address] * (ABNORMAL) Basic metabolic panel (10/07/2024 10:19 PM DRY PAN CHARGER) Sodium 142 135 - 145 mmol/L Potassium, pl 4.5 3.3 - 4.9 mmol/L [facility] Chloride 107 97 - 110 mmol/L [facility] CO2 26 22 - 32 mmol/L [facility] Anion gap 9 2 - 15 mmol/L [facility] BUN 33(H) 6 - 25 mg/dL [facility] Creatinine 1.21 0.80 - 1.30 mg/dL [facility] Glucose 140 70 - 199 mg/dL [facility] Comment: Interpretive Data Fasting glucose >/= 126 [...] 2022. Calcium 8.5 8.5 - 10.3 mg/dL [facility] Blood 10/07/2024 10:1 9 PM DRY PAN CHARGER 10/07/2024 11:24 PM DRY PAN CHARGER James Robles MD LAB BLOOD ORDERABLES Final Resu lt Performing Organization Address [facility] Co de Phone Number [facility] [place] [address] * (ABNORMAL) Lactate, whole blood (10/07/2024 9:09 AM DRY PAN CHARGER) Lactate, bld 3.4(H) 0.7 - 2.0 mmol/L Blood 10/07/2024 9:09 AM DRY PAN CHARGER 10/07/2024 9:15 AM DRY PAN CHARGER Brianna Martínez NP LAB BLOOD ORDERABLES Cammy l Result Performing Organization Address [facility] Co de Phone Number [facility] [place] [address] * (ABNORMAL) Urinalysis, microscopic only (10/07/2024 5:37 AM DRY PAN CHARGER) WBC, ur 0-5 0 - 5 /HPF RBC, ur 11-20(A) 0 - 2 /HPF [facility] Mucous, ur Present(A) [facility] Culture Reflex Comment Reflex conditions for urine culture (WBC >10) not met. [facility] Urine 10/07/2024 5:37 AM DRY PAN CHARGER 10/07/2024 5:46 AM DRY PAN CHARGER James Robles MD LAB URINE ORDERABLES Final Resu lt Performing Organization Address [facility] Co de Phone Number [facility] [place] [address] * (ABNORMAL) Urinalysis reflex to microscopic and culture Urine (10/07/2024 5:37 AM DRY PAN CHARGER) Color, ur Straw Yellow Clarity, ur Clear Clear [facility] Specific gravity, ur 1.013 1.003 - 1.030 [facility] pH, urine 7.0 [facility] Comment: Interpretive Data ? Urine pH is affected by diet, medications, systemic acid-base disturbances, and renal tubular function. ??pH may affect urinary stone formation. ??For example, urine pH below 6.0 may help reduce the tendency for calcium phosphate stones and pH greater than 6.0 may reduce the tendency for uric acid stone formation. Source: [facility] Current Interpretive Data was last revised on 2017 Protein, ur ql Negative Negative [facility] Glucose, ur ql Negative Negative [facility] Ketones, ur Negative Negative [facility] Bilirubin, ur Negative Negative [facility] Blood, ur Trace(A) Negative [facility] Urobilinogen, ur <2.0 <2.0 mg/dL [facility] Nitrite, ur Negative Negative [facility] Leukocyte esterase, ur Negative Negative [facility] UA reflex comment Reflex to microscopic UA will be performed. [facility] Urine 10/07/2024 5:37 AM DRY PAN CHARGER 10/07/2024 5:46 AM DRY PAN CHARGER James Robles MD LAB MICROBIOLOGY - GENERAL RAYMOND JEFFERY Final Result [facility] Department [place] [address] * Blood culture Blood (10/07/2024 5:37 AM DRY PAN CHARGER) Report Final Report: No growth Blood 10/07/2024 5:37 AM DRY PAN CHARGER 10/07/2024 7:00 AM DRY PAN CHARGER Narrative [facility] - 10/11/2024 7:00 AM DRY PAN CHARGER Collection->Peripheral 1. ?Blood cultures are incubated for [...] organism identification may be performed using the [employer]ass[employer] Gram-Positive Blood Culture Assay. This assay detects microbial DNA in positive blood culture broth via hybridization of target DNA to capture oligonucleotides on a microarray. This assay has been cleared by the [place] Food and Drug Administration and its performance characteristics have been verified by the [facility]. 5. ?For questions about this culture, contact the Microbiology Laboratory at [phone]. Interpretive data was last revised on 2020. James Robles MD LAB MICROBIOLOGY - GENERAL RAYMOND JEFFERY Final Result [facility] Department [place] [address] * Blood culture Blood (10/07/2024 5:37 AM DRY PAN CHARGER) Report Final Report: No growth Blood 10/07/2024 5:37 AM DRY PAN CHARGER 10/07/2024 6:07 AM DRY PAN CHARGER Narrative [facility] - 10/11/2024 7:00 AM DRY PAN CHARGER Collection->Peripheral 1. ?Blood cultures are incubated for [...] organism identification may be performed using the [employer] Gram-Positive Blood Culture Assay. This assay detects microbial DNA in positive blood culture broth via hybridization of target DNA to capture oligonucleotides on a microarray. This assay has been cleared by the [place] Food and Drug Administration and its performance characteristics have been verified by the [facility]biology Laboratory. 5. ?For questions about this culture, contact the Microbiology Laboratory at [phone]. Interpretive data was last revised on 2020. James Robles MD LAB MICROBIOLOGY - GENERAL RAYMOND JEFFERY Final Result [facility] Department [place] [address] * XR Chest 1 View (10/07/2024 5:18 AM DRY PAN CHARGER) Anatomical Region Laterality Modality Body, Chest N/A Computed Radiogr aphy 10/07/2024 7:05 AM DRY PAN CHARGER Impressions 10/07/2024 7:05 AM DRY PAN CHARGER The current study is compared with the prior radiograph dated ??10/02/2024. ??Spine stimulator is present. ??The heart and mediastinal contours are normal. ??There is no mass or consolidation. There is no lymphadenopathy. ??There are no pleural effusions. ??There is no pneumothorax. There is no interval change. Electronically signed by: Lauren Cantrell M.D. Narrative 10/07/2024 7:05 AM DRY PAN CHARGER EXAMINATION: 1 view chest radiograph Procedure Note [...] (ABNORMAL) Lactate, whole blood (10/06/2024 9:30 PM DRY PAN CHARGER) Lactate, bld 2.7(H) 0.7 - 2.0 mmol/L Blood 10/06/2024 9:30 PM DRY PAN CHARGER 10/06/2024 9:30 PM DRY PAN CHARGER us Tamanna Porras MANAGER PUBLISHING LAB BLOOD ORDERABLES Final Resul t [facility] Department [place] [address] * eGFR (10/06/2024 9:16 PM DRY PAN CHARGER) eGFR 61 >=60 mL/min/1. 73 m2 Comment: [...] last reviewed 2021. Blood 10/06/2024 9:16 PM DRY PAN CHARGER 10/06/2024 9:34 PM DRY PAN CHARGER James Robles MD LAB BLOOD ORDERABLES Final Resu lt Performing Organization Address City/[facility]/ZIP Co de Phone Number [facility] Department [place] [address] * (ABNORMAL) CBC without differential (10/06/2024 9:16 PM DRY PAN CHARGER) WBC 17.1(H) 3.8 - 9.9 K/cumm Hgb 10.8(L) 13.0 - 17.5 g/dL [facility] Hct 30.7(L) 38.9 - 50.3 % [facility] Plt 256 150 - 400 K/cumm [facility] MPV 10.3 9.1 - 12.3 fL [facility] RBC 3.40(L) 4.30 - 5.80 M/cumm [facility] MCV 90.3 81.3 - 96.4 fL [facility] MCH 31.8 27.1 - 33.3 pg [facility] MCHC 35.2 32.3 - 35.7 g/dL [facility] RDW CV 13.1 11.1 - 14.9 % [facility] RDW SD 43.2 35.7 - 48.1 fL [facility] NRBC abs 0.00 0.00 - 0.01 K/cumm [facility] Blood 10/06/2024 9:16 PM DRY PAN CHARGER 10/06/2024 9:34 PM DRY PAN CHARGER us Maria Isabel Unger NP LAB BLOOD ORDERABLES Final Result Performing Organization Address [facility]/ZIP Co de Phone Number [facility] Department [place] [address] * (ABNORMAL) Basic metabolic panel (10/06/2024 9:16 PM DRY PAN CHARGER) Pathologist [facility] Sodium 140 135 - 145 mmol/L Potassium, pl 4.7 3.3 - 4.9 mmol/L [facility] Chloride 105 97 - 110 mmol/L [facility] CO2 25 22 - 32 mmol/L [facility] Anion gap 10 2 - 15 mmol/L [facility] BUN 32(H) 6 - 25 mg/dL [facility] Creatinine 1.22 0.80 - 1.30 mg/dL [facility] Glucose 152 70 - 199 mg/dL [facility] Comment: Interpretive Data Fasting glucose >/= 126 [...] 2022. Calcium 8.7 8.5 - 10.3 mg/dL [facility] Blood 10/06/2024 9:16 PM DRY PAN CHARGER 10/06/2024 9:34 PM DRY PAN CHARGER us James Robles MD LAB BLOOD ORDERABLES Final Resu lt [facility] Department [place] [address] * eGFR (10/05/2024 10:43 PM DRY PAN CHARGER) Pathologist [facility] eGFR 67 >=60 mL/min/1. 73 m2 Comment: [...] reviewed 2021. Blood 10/05/2024 10:4 3 PM DRY PAN CHARGER 10/05/2024 11:10 PM DRY PAN CHARGER us James Robles MD LAB BLOOD ORDERABLES Final Resu lt [facility] Department [place] [address] * (ABNORMAL) CBC without differential (10/05/2024 10:43 PM DRY PAN CHARGER) WBC 16.5(H) 3.8 - 9.9 K/cumm Hgb 10.5(L) 13.0 - 17.5 g/dL [facility] Hct 31.4(L) 38.9 - 50.3 % [facility] Plt 238 150 - 400 K/cumm [facility] MPV 10.7 9.1 - 12.3 fL [facility] RBC 3.37(L) 4.30 - 5.80 M/cumm [facility] MCV 93.2 81.3 - 96.4 fL [facility] MCH 31.2 27.1 - 33.3 pg [facility] MCHC 33.4 32.3 - 35.7 g/dL [facility] RDW CV 13.3 11.1 - 14.9 % [facility] RDW SD 45.3 35.7 - 48.1 fL [facility] NRBC abs 0.00 0.00 - 0.01 K/cumm [facility] Blood 10/05/2024 10:4 3 PM DRY PAN CHARGER 10/05/2024 11:11 PM DRY PAN CHARGER us Maria Isabel Unger MANAGER PUBLISHING LAB BLOOD ORDERABLES Final Result Performing Organization Address [facility] Co de Phone Number [facility] Department [place] [address] * (ABNORMAL) Lactate, whole blood (10/05/2024 10:43 PM DRY PAN CHARGER) [facility] Lactate, bld 2.2(H) 0.7 - 2.0 mmol/L Blood 10/05/2024 10:4 3 PM DRY PAN CHARGER 10/05/2024 11:07 PM DRY PAN CHARGER Tamanna Porras MANAGER PUBLISHING LAB BLOOD ORDERABLES Final Resul t Performing Organization Address [facility] de Phone Number [facility] [place] [address] * (ABNORMAL) Basic metabolic panel (10/05/2024 10:43 PM DRY PAN CHARGER) [facility] Sodium 143 135 - 145 mmol/L Potassium, pl 4.4 3.3 - 4.9 mmol/L [facility] Chloride 108 97 - 110 mmol/L [facility] CO2 25 22 - 32 mmol/L [facility] Anion gap 10 2 - 15 mmol/L [facility] BUN 30(H) 6 - 25 mg/dL [facility] Creatinine 1.14 0.80 - 1.30 mg/dL [facility] Glucose 139 70 - 199 mg/dL [facility] Comment: Interpretive Data Fasting glucose >/= 126 [...] 2022. Calcium 8.8 8.5 - 10.3 mg/dL [facility] Blood 10/05/2024 10:4 3 PM DRY PAN CHARGER 10/05/2024 11:10 PM DRY PAN CHARGER us James Robles MD LAB BLOOD ORDERABLES Final Resu lt RE[facility] Department [place] [address] * (ABNORMAL) eGFR (10/04/2024 8:49 PM DRY PAN CHARGER) eGFR 57(L) >=60 mL/min/1. 73 m2 Comment: [...] last reviewed 2021. Blood 10/04/2024 8:49 PM DRY PAN CHARGER 10/04/2024 9:06 PM DRY PAN CHARGER us James Robles MD LAB BLOOD ORDERABLES Final Resu lt [facility] Department [place] [address] * (ABNORMAL) Differential, auto (10/04/2024 8:49 PM DRY PAN CHARGER) Neutrophil abs 20.1(H) 1.5 - 6.5 K/cumm Imm gran abs 0.3(H) 0.0 - 0.1 K/cumm [facility] Lymphocyte abs 1.2 0.8 - 3.3 K/cumm [facility] Monocyte abs 1.4(H) 0.2 - 0.8 K/cumm [facility] Eosinophil abs 0.0 0.0 - 0.5 K/cumm [facility] Basophil abs 0.0 0.0 - 0.1 K/cumm [facility] Neutrophil pct 87.4 % [facility] Comment: Consistent with previous result Interpretive Data Percent cell count reference ranges are not reported, since discordance with absolute values may lead to misinterpretation of CBC data. Current Interpretive Data was last revised on 2018. Imm gran pct 1.3 % [facility] Comment: Interpretive Data Percent cell count reference ranges are not reported, since discordance with absolute values may lead to misinterpretation of CBC data. Current Interpretive Data was last revised on 2018. Lymphocyte pct 5.2 % [facility] Comment: Interpretive Data Percent cell count reference ranges are not reported, since discordance with absolute values may lead to misinterpretation of CBC data. Current Interpretive Data was last revised on 2018. Monocyte pct 6.0 % [facility] Comment: Interpretive Data Percent cell count reference ranges are not reported, since discordance with absolute values may lead to misinterpretation of CBC data. Current Interpretive Data was last revised on 2018. Eosinophil pct 0.0 % [facility] Comment: Interpretive Data Percent cell count reference ranges are not reported, since discordance with absolute values may lead to misinterpretation of CBC data. Current Interpretive Data was last revised on 2018. Basophil pct 0.1 % [facility] Comment: Interpretive Data Percent cell count reference ranges are not reported, since discordance with absolute values may lead to misinterpretation of CBC data. Current Interpretive Data was last revised on 2018. Blood 10/04/2024 8:49 PM DRY PAN CHARGER 10/04/2024 9:06 PM DRY PAN CHARGER us James Robles MD LAB BLOOD ORDERABLES Final Resu lt Performing Organization Address [facility] Co de Phone Number [facility] Department [place] [address] * (ABNORMAL) Lactate, whole blood (10/04/2024 8:49 PM DRY PAN CHARGER) Lactate, bld 2.5(H) 0.7 - 2.0 mmol/L Blood 10/04/2024 8:49 PM DRY PAN CHARGER 10/04/2024 9:00 PM DRY PAN CHARGER us Tamanna Porras NP LAB BLOOD ORDERABLES Final Resul t Performing Organization Address [facility] de Phone Number [facility] Department [place] [address] * Calcium, ionized, whole blood (10/04/2024 8:49 PM DRY PAN CHARGER) Ca, ionized, bld 5.10 4.50 - 5.10 mg/dL Blood 10/04/2024 8:49 PM DRY PAN CHARGER 10/04/2024 9:00 PM DRY PAN CHARGER Tamanna Porras NP LAB BLOOD ORDERABLES Final Resul t Performing Organization Address [facility]/ZIP Co de Phone Number [facility] Department [place] [address] * (ABNORMAL) Troponin I high-sensitivity (10/04/2024 8:49 PM DRY PAN CHARGER) [facility] Trop I hs 128(H) <=35 ng/L Comment: Interpretive Data For further [facility] resources including the diagnostic algorithm and an aid in interpretation, copy and paste this link: https://bjhlab.testcatalog.org/show/[email or web address] Current Interpretive Data last revised 2020. Blood 10/04/2024 8:49 PM DRY PAN CHARGER 10/04/2024 9:06 PM DRY PAN CHARGER us Tamanna Porras NP LAB BLOOD ORDERABLES Final Resul t [facility] Department [place] [address] * (ABNORMAL) CBC with auto differential (10/04/2024 8:49 PM DRY PAN CHARGER) [facility] WBC 23.0(H) 3.8 - 9.9 K/cumm Hgb 10.5(L) 13.0 - 17.5 g/dL [facility] Hct 31.0(L) 38.9 - 50.3 % [facility] Plt 207 150 - 400 K/cumm [facility] MPV 10.2 9.1 - 12.3 fL [facility] RBC 3.34(L) 4.30 - 5.80 M/cumm [facility] MCV 92.8 81.3 - 96.4 fL [facility] MCH 31.4 27.1 - 33.3 pg [facility] MCHC 33.9 32.3 - 35.7 g/dL [facility] RDW CV 13.6 11.1 - 14.9 % [facility] RDW SD 45.7 35.7 - 48.1 fL [facility] NRBC abs 0.00 0.00 - 0.01 K/cumm [facility] Blood 10/04/2024 8:49 PM DRY PAN CHARGER 10/04/2024 9:06 PM DRY PAN CHARGER James Robles MD LAB BLOOD ORDERABLES Final Resu lt [facility] Department [place] [address] * (ABNORMAL) Basic metabolic panel (10/04/2024 8:49 PM DRY PAN CHARGER) Pathologist [facility] Sodium 144 135 - 145 mmol/L Potassium, pl 4.4 3.3 - 4.9 mmol/L [facility] Chloride 113(H) 97 - 110 mmol/L [facility] CO2 22 22 - 32 mmol/L [facility] Anion gap 9 2 - 15 mmol/L [facility] BUN 24 6 - 25 mg/dL [facility] Creatinine 1.30 0.80 - 1.30 mg/dL [facility] Glucose 168 70 - 199 mg/dL [facility] Comment: Interpretive Data Fasting glucose >/= 126 [...] 2022. Calcium 8.4(L) 8.5 - 10.3 mg/dL [facility] Blood 10/04/2024 8:49 PM DRY PAN CHARGER 10/04/2024 9:06 PM DRY PAN CHARGER James Robles MD LAB BLOOD ORDERABLES Final Resu lt Performing Organization Address [facility]/ZIP Co de Phone Number [facility] Department [place] [address] * (ABNORMAL) Urinalysis, microscopic only (10/04/2024 1:30 PM DRY PAN CHARGER) WBC, ur 0-5 0 - 5 /HPF RBC, ur >50(A) 0 - 2 /HPF [facility] Epithelial cells, squamous, ur 1-5 0 - 5 /HPF [facility] Mucous, ur Present(A) [facility] Culture Reflex Comment Reflex conditions for urine culture (WBC >10) not met. [facility] Urine 10/04/2024 1:3 0 PM DRY PAN CHARGER 10/04/2024 4:15 PM DRY PAN CHARGER us Tamanna Porras NP LAB URINE ORDERABLES Final Resul t [facility] [place] [address] * (ABNORMAL) Urinalysis reflex to microscopic and culture Urine (10/04/2024 1:30 PM DRY PAN CHARGER) Color, ur Straw Yellow Clarity, ur Clear Clear [facility] Specific gravity, ur 1.028 1.003 - 1.030 [facility] pH, urine 6.0 [facility] Comment: Interpretive Data ? Urine pH is affected by diet, medications, systemic acid-base disturbances, and renal tubular function. ??pH may affect urinary stone formation. ??For example, urine pH below 6.0 may help reduce the tendency for calcium phosphate stones and pH greater than 6.0 may reduce the tendency for uric acid stone formation. Source: [facility] NoteVault Current Interpretive Data was last revised on 2017 Protein, ur ql 1+(A) Negative [facility] Glucose, ur ql Negative Negative [facility] Ketones, ur Negative Negative [facility] Bilirubin, ur Negative Negative [facility] Blood, ur 3+(A) Negative [facility] Urobilinogen, ur <2.0 <2.0 mg/dL [facility] Nitrite, ur Negative Negative [facility] Leukocyte esterase, ur Negative Negative [facility] UA reflex comment Reflex to microscopic UA will be performed. [facility] Urine 10/04/2024 1:30 PM DRY PAN CHARGER 10/04/2024 4:16 PM DRY PAN CHARGER Tamanna Porras NP LAB MICROBIOLOGY - GENERAL ORDER TALYA Final Result Performing Organization Address City/[facility] Co de Phone Number [facility] Department [place] [address] * (ABNORMAL) Lactate, whole blood (10/04/2024 12:12 PM DRY PAN CHARGER) Lactate, bld 3.7(H) 0.7 - 2.0 mmol/L Blood 10/04/2024 12:1 2 PM DRY PAN CHARGER 10/04/2024 12:22 PM DRY PAN CHARGER Tamanna Porras NP LAB BLOOD ORDERABLES Final Resul t Performing Organization Address [facility] de Phone Number [facility] [place] [address] * (ABNORMAL) Troponin I high-sensitivity 2-hour (10/04/2024 12:06 PM DRY PAN CHARGER) Trop I hs 132(H) <=35 ng/L Comment: Interpretive Data For further hscTnI resources including the diagnostic algorithm and an aid in interpretation, copy and paste this link: https://bjhlab.testcatalog.org/show/[email or web address] Current Interpretive Data last revised 2020. Trop I hs pct delta -9 % [facility] Trop I hs interp Equivocal [facility] Blood 10/04/2024 12:0 6 PM DRY PAN CHARGER 10/04/2024 12:30 PM DRY PAN CHARGER Geraldine Leary MANAGER PUBLISHING LAB BLOOD ORDERABLES Final Result Performing Organization Address [facility] Co de Phone Number [facility] [place] [address] * Critical Result Callback Chemistry (10/04/2024 9:06 AM DRY PAN CHARGER) Date Notified [id number] Time Notified 1024 [facility] TestName Lactate REYNALDO MAHARAJ Called/Read Back Arin JACOBS [facility] Credentials RN REYNALDO [facility] Called By NEAL MAHARAJ Blood 10/04/2024 9:06 AM DRY PAN CHARGER 10/04/2024 9:58 AM DRY PAN CHARGER Geraldine Leary NP LAB BLOOD ORDERABLES Final Result Performing Organization Address [facility] Co de Phone Number [facility] [place] [address] * (ABNORMAL) Troponin I high-sensitivity series (baseline, 2hr, 4hr, 6hr) (10/04/2024 9:06 AM DRY PAN CHARGER) Pathologist [facility] Trop I hs 145(H) <=35 ng/L Comment: Interpretive Data For further hscTnI resources including the diagnostic algorithm and an aid in interpretation, copy and paste this link: https://bjhlab.testcatalog.org/show/[email or web address] Current Interpretive Data last revised 2020. Blood 10/04/2024 9:06 AM DRY PAN CHARGER 10/04/2024 9:58 AM DRY PAN CHARGER Geraldine Leary NP LAB BLOOD ORDERABLES Final Result Performing Organization Address [facility] de Phone Number [facility] Department [place] [address] * (ABNORMAL) Lactate (10/04/2024 9:06 AM DRY PAN CHARGER) Pathologist [facility] Lactate 4.1(C) 0.7 - 2.0 mmol/L Blood 10/04/2024 9:06 AM DRY PAN CHARGER 10/04/2024 9:58 AM DRY PAN CHARGER Geraldine Leary NP LAB BLOOD ORDERABLES Final Result Performing Organization Address [facility]/State/ZIP Co de Phone Number [facility] Department [place] [address] * Influenza A/B, RSV, and COVID-19 PCR Nasopharyngeal (10/04/2024 9:06 AM DRY PAN CHARGER) [facility] COVID-19 RNA Negative Negative [facility] Influenza A RNA Negative Negative [facility] Influenza B RNA Negative Negative [facility] RSV RNA Negative Negative [facility] Comment: Interpretive data: Testing performed by [facility] ([phone]). This test is performed using the Sendia Xpert Xpress CoV-2/Flu/RSV plus assay. This is a multiplex, real-time reverse transcriptase PCR assay intended for the qualitative detection of nucleic acid from SARS-CoV-2, influenza A, influenza B, and respiratory syncytial virus. This assay has been cleared by the [place] Food and Drug administration. The performance characteristics have been verified by the [facility]. ??Results must be considered in the clinical context, and a negative result does not rule out infection. Interpretive Data last revised 2023 Nasopharyngeal 10/04/2024 9: 06 AM DRY PAN CHARGER 10/04/2024 10:22 AM DRY PAN CHARGER Narrative [facility] - 10/04/2024 11:17 AM DRY PAN CHARGER Is the Patient experiencing symptoms consistent with COVID?->Unknown Geraldine Leary NP LAB MICROBIOLOGY - [facility] ORDERABLES Final Result Performing Organization Address City/State/[facility] Co de Phone Number [facility] Department [place] [address] [facility] * eGFR (10/03/2024 10:36 PM DRY PAN CHARGER) [facility] eGFR 61 >=60 mL/min/1. 73 m2 Comment: [...] reviewed 2021. Blood 10/03/2024 10:3 6 PM DRY PAN CHARGER 10/03/2024 10:52 PM DRY PAN CHARGER us James Robles MD LAB BLOOD ORDERABLES Final Resu lt [facility] Department [place] [address] * (ABNORMAL) Basic metabolic panel (10/03/2024 10:36 PM DRY PAN CHARGER) Pathologist [facility] Sodium 142 135 - 145 mmol/L Potassium, pl 4.4 3.3 - 4.9 mmol/L [facility] Chloride 113(H) 97 - 110 mmol/L [facility] CO2 22 22 - 32 mmol/L [facility] Anion gap 7 2 - 15 mmol/L [facility] BUN 17 6 - 25 mg/dL [facility] Creatinine 1.23 0.80 - 1.30 mg/dL [facility] Glucose 162 70 - 199 mg/dL [facility] Comment: Interpretive Data Fasting glucose >/= 126 [...] 2022. Calcium 8.1(L) 8.5 - 10.3 mg/dL [facility] Blood 10/03/2024 10:3 6 PM DRY PAN CHARGER 10/03/2024 10:52 PM DRY PAN CHARGER us James Robles MD LAB BLOOD ORDERABLES Final Resu lt [facility] Department [place] [address] * (ABNORMAL) Differential, auto (10/03/2024 8:30 PM DRY PAN CHARGER) Pathologist [facility] Neutrophil abs 22.7(H) 1.5 - 6.5 K/cumm Imm gran abs 0.3(H) 0.0 - 0.1 K/cumm [facility] Lymphocyte abs 1.2 0.8 - 3.3 K/cumm [facility] Monocyte abs 2.1(H) 0.2 - 0.8 K/cumm [facility] Eosinophil abs 0.0 0.0 - 0.5 K/cumm [facility] Basophil abs 0.0 0.0 - 0.1 K/cumm [facility] Neutrophil pct 86.2 % [facility] Comment: Consistent with previous result Interpretive Data Percent cell count reference ranges are not reported, since discordance with absolute values may lead to misinterpretation of CBC data. Current Interpretive Data was last revised on 2018. Imm gran pct 1.1 % [facility] Comment: Interpretive Data Percent cell count reference ranges are not reported, since discordance with absolute values may lead to misinterpretation of CBC data. Current Interpretive Data was last revised on 2018. Lymphocyte pct 4.6 % [facility] Comment: Interpretive Data Percent cell count reference ranges are not reported, since discordance with absolute values may lead to misinterpretation of CBC data. Current Interpretive Data was last revised on 2018. Monocyte pct 8.0 % [facility] Comment: Interpretive Data Percent cell count reference ranges are not reported, since discordance with absolute values may lead to misinterpretation of CBC data. Current Interpretive Data was last revised on 2018. Eosinophil pct 0.0 % [facility] Comment: Interpretive Data Percent cell count reference ranges are not reported, since discordance with absolute values may lead to misinterpretation of CBC data. Current Interpretive Data was last revised on 2018. Basophil pct 0.1 % [facility] Comment: Interpretive Data Percent cell count reference ranges are not reported, since discordance with absolute values may lead to misinterpretation of CBC data. Current Interpretive Data was last revised on 2018. Blood 10/03/2024 8:30 PM DRY PAN CHARGER 10/03/2024 9:05 PM DRY PAN CHARGER us James Robles MD LAB BLOOD ORDERABLES Final Resu lt [facility] Department [place] [address] * (ABNORMAL) CBC with auto differential (10/03/2024 8:30 PM DRY PAN CHARGER) WBC 26.3(H) 3.8 - 9.9 K/cumm Hgb 11.3(L) 13.0 - 17.5 g/dL [facility] Hct 33.7(L) 38.9 - 50.3 % [facility] Plt 302 150 - 400 K/cumm [facility] MPV 10.4 9.1 - 12.3 fL [facility] RBC 3.61(L) 4.30 - 5.80 M/cumm [facility] MCV 93.4 81.3 - 96.4 fL [facility] MCH 31.3 27.1 - 33.3 pg [facility] MCHC 33.5 32.3 - 35.7 g/dL [facility] RDW CV 13.2 11.1 - 14.9 % [facility] RDW SD 45.1 35.7 - 48.1 fL [facility] NRBC abs 0.00 0.00 - 0.01 K/cumm [facility] Blood 10/03/2024 8:30 PM DRY PAN CHARGER 10/03/2024 9:05 PM DRY PAN CHARGER us James Robles MD LAB BLOOD ORDERABLES Final Resu lt [facility] [place] [address] * eGFR (10/03/2024 8:25 PM DRY PAN CHARGER) eGFR 60 >=60 mL/min/1. 73 m2 Comment: [...] last reviewed 2021. Blood 10/03/2024 8:25 PM DRY PAN CHARGER 10/03/2024 9:05 PM DRY PAN CHARGER James Robles MD LAB BLOOD ORDERABLES Final Resu lt [facility] Department [place] [address] * (ABNORMAL) Basic metabolic panel (10/03/2024 8:25 PM DRY PAN CHARGER) Pathologist [facility] Sodium 143 135 - 145 mmol/L Potassium, pl 4.1 3.3 - 4.9 mmol/L [facility] Chloride 113(H) 97 - 110 mmol/L [facility] CO2 20(L) 22 - 32 mmol/L [facility] Anion gap 10 2 - 15 mmol/L [facility] BUN 17 6 - 25 mg/dL [facility] Creatinine 1.25 0.80 - 1.30 mg/dL [facility] Glucose 163 70 - 199 mg/dL [facility] Comment: Interpretive Data Fasting glucose >/= 126 [...] 2022. Calcium 8.0(L) 8.5 - 10.3 mg/dL [facility] Blood 10/03/2024 8:25 PM DRY PAN CHARGER 10/03/2024 9:05 PM DRY PAN CHARGER James Robles MD LAB BLOOD ORDERABLES Final Resu lt Performing Organization Address City/[facility]/ZIP Co de Phone Number [facility] Department [place] [address] * ECG 12 lead (10/03/2024 2:19 PM DRY PAN CHARGER) [facility] Ventricular Rate EKG/Min 96 BPM [facility] Atrial Rate 96 BPM [facility] [place]-Interval (MSEC) 242 ms [facility] QRS-Interval (MSEC) 110 ms [facility] QT-Interval (MSEC) 364 ms [facility] QTc 459 ms [facility] P [place] 69 degrees [facility] R [place] 76 degrees [facility] T [place] 1 degrees [facility] Diagnosis Sinus rhythm with 1st degree A-V block Nonspecific ST and T wave abnormality Abnormal ECG When compared with ECG of 10-MAY-2008 09:35, [place] interval has increased Vent. rate has increased BY ??35 BPM Non-specific change in ST segment in Inferior leads ST now depressed in Anterolateral leads Nonspecific T wave abnormality now evident in Inferior leads QT has lengthened Confirmed by JACOBO CARSON M.D ([id number]) on 10/04/2024 10:42:26 AM [facility] 10/03/2024 2:19 PM DRY PAN CHARGER 10/04/2024 10:42 AM DRY PAN CHARGER James Robles MD ECG ORDERABLES Final Result [facility] * POCT glucose (10/03/2024 2:07 PM DRY PAN CHARGER) [facility] Glucose, POC 128 70 - 199 mg/dL Blood 10/03/2024 2:07 PM DRY PAN CHARGER 10/03/2024 2:07 PM DRY PAN CHARGER James Robles MD LAB POCT ORDERABLES - DEVICE Fi nal Result [facility] Department [place] [address] * (ABNORMAL) eGFR (10/03/2024 4:58 AM DRY PAN CHARGER) [facility] eGFR 57(L) >=60 mL/min/1. 73 m2 [...] last reviewed 2021. Blood 10/03/2024 4:58 AM DRY PAN CHARGER 10/03/2024 5:32 AM DRY PAN CHARGER us James Robles MD LAB BLOOD ORDERABLES Final Resu lt [facility] [place] [address] * (ABNORMAL) Differential, auto (10/03/2024 4:58 AM DRY PAN CHARGER) Pathologist [facility] Neutrophil abs 28.0(H) 1.5 - 6.5 K/cumm Imm gran abs 0.2(H) 0.0 - 0.1 K/cumm [facility] Lymphocyte abs 0.9 0.8 - 3.3 K/cumm [facility] Monocyte abs 1.5(H) 0.2 - 0.8 K/cumm [facility] Eosinophil abs 0.0 0.0 - 0.5 K/cumm [facility] Basophil abs 0.1 0.0 - 0.1 K/cumm [facility] Neutrophil pct 91.6 % [facility] Comment: Interpretive Data Percent cell count reference ranges are not reported, since discordance with absolute values may lead to misinterpretation of CBC data. Current Interpretive Data was last revised on 2018. Imm gran pct 0.6 % [facility] Comment: Interpretive Data Percent cell count reference ranges are not reported, since discordance with absolute values may lead to misinterpretation of CBC data. Current Interpretive Data was last revised on 2018. Lymphocyte pct 2.8 % [facility] Comment: Interpretive Data Percent cell count reference ranges are not reported, since discordance with absolute values may lead to misinterpretation of CBC data. Current Interpretive Data was last revised on 2018. Monocyte pct 4.8 % [facility] Comment: Interpretive Data Percent cell count reference ranges are not reported, since discordance with absolute values may lead to misinterpretation of CBC data. Current Interpretive Data was last revised on 2018. Eosinophil pct 0.0 % [facility] Comment: Interpretive Data Percent cell count reference ranges are not reported, since discordance with absolute values may lead to misinterpretation of CBC data. Current Interpretive Data was last revised on 2018. Basophil pct 0.2 % [facility] Comment: Interpretive Data Percent cell count reference ranges are not reported, since discordance with absolute values may lead to misinterpretation of CBC data. Current Interpretive Data was last revised on 2018. Blood 10/03/2024 4:58 AM DRY PAN CHARGER 10/03/2024 5:32 AM DRY PAN CHARGER us James Robles MD LAB BLOOD ORDERABLES Final Resu lt [facility] Department of Laboratories [place], [place] [id number] * (ABNORMAL) Basic metabolic panel (10/03/2024 4:58 AM DRY PAN CHARGER) Sodium 143 135 - 145 mmol/L Potassium, pl 4.7 3.3 - 4.9 mmol/L [facility] Chloride 111(H) 97 - 110 mmol/L [facility] CO2 22 22 - 32 mmol/L [facility] Anion gap 10 2 - 15 mmol/L [facility] BUN 14 6 - 25 mg/dL [facility] Creatinine 1.29 0.80 - 1.30 mg/dL [facility] Glucose 146 70 - 199 mg/dL [facility] Comment: Interpretive Data Fasting glucose >/= 126 [...] 2022. Calcium 8.3(L) 8.5 - 10.3 mg/dL [facility] Blood 10/03/2024 4:58 AM DRY PAN CHARGER 10/03/2024 5:32 AM DRY PAN CHARGER us James Robles MD LAB BLOOD ORDERABLES Final Resu lt [facility] Department [place] [address] * (ABNORMAL) CBC with auto differential (10/03/2024 4:58 AM DRY PAN CHARGER) WBC 30.5(H) 3.8 - 9.9 K/cumm Hgb 13.0 13.0 - 17.5 g/dL [facility] Hct 38.0(L) 38.9 - 50.3 % [facility] Plt 346 150 - 400 K/cumm [facility] MPV 10.2 9.1 - 12.3 fL [facility] RBC 4.14(L) 4.30 - 5.80 M/cumm [facility] MCV 91.8 81.3 - 96.4 fL [facility] MCH 31.4 27.1 - 33.3 pg [facility] MCHC 34.2 32.3 - 35.7 g/dL [facility] RDW CV 12.9 11.1 - 14.9 % [facility] RDW SD 43.0 35.7 - 48.1 fL [facility] NRBC abs 0.00 0.00 - 0.01 K/cumm [facility] Blood 10/03/2024 4:58 AM DRY PAN CHARGER 10/03/2024 5:32 AM DRY PAN CHARGER us James Robles MD LAB BLOOD ORDERABLES Final Resu lt [facility] Department [place] [address] * XR chest 1 view (Portable) (10/02/2024 9:08 PM DRY PAN CHARGER) Anatomical Region Laterality Modality Body, Chest N/A Computed Radiogr aphy 10/03/2024 8:28 AM DRY PAN CHARGER Impressions 10/03/2024 4:05 PM DRY PAN CHARGER No priors available for comparison. Spinal stimulator [...] James MD, PHD Narrative 10/03/2024 4:05 PM DRY PAN CHARGER EXAMINATION: 1 view chest radiograph Procedure Note [...] Result * (ABNORMAL) eGFR (10/02/2024 4:01 PM DRY PAN CHARGER) eGFR 57(L) >=60 mL/min/1. 73 m2 Comment: [...] last reviewed 2021. Blood 10/02/2024 4:01 PM DRY PAN CHARGER 10/02/2024 4:17 PM DRY PAN CHARGER James Robles MD LAB BLOOD ORDERABLES Final Resu lt [facility] Department [place] [address] * (ABNORMAL) Differential, auto (10/02/2024 4:01 PM DRY PAN CHARGER) Neutrophil abs 14.1(H) 1.5 - 6.5 K/cumm Imm gran abs 0.1 0.0 - 0.1 K/cumm [facility] Lymphocyte abs 1.3 0.8 - 3.3 K/cumm [facility] Monocyte abs 0.7 0.2 - 0.8 K/cumm [facility] Eosinophil abs 0.0 0.0 - 0.5 K/cumm [facility] Basophil abs 0.1 0.0 - 0.1 K/cumm [facility] Neutrophil pct 86.5 % [facility] Comment: Interpretive Data Percent cell count reference ranges are not reported, since discordance with absolute values may lead to misinterpretation of CBC data. Current Interpretive Data was last revised on 2018. Imm gran pct 0.7 % [facility] Comment: Interpretive Data Percent cell count reference ranges are not reported, since discordance with absolute values may lead to misinterpretation of CBC data. Current Interpretive Data was last revised on 2018. Lymphocyte pct 8.0 % [facility] Comment: Interpretive Data Percent cell count reference ranges are not reported, since discordance with absolute values may lead to misinterpretation of CBC data. Current Interpretive Data was last revised on 2018. Monocyte pct 4.2 % [facility] Comment: Interpretive Data Percent cell count reference ranges are not reported, since discordance with absolute values may lead to misinterpretation of CBC data. Current Interpretive Data was last revised on 2018. Eosinophil pct 0.2 % [facility] Comment: Interpretive Data Percent cell count reference ranges are not reported, since discordance with absolute values may lead to misinterpretation of CBC data. Current Interpretive Data was last revised on 2018. Basophil pct 0.4 % [facility] Comment: Interpretive Data Percent cell count reference ranges are not reported, since discordance with absolute values may lead to misinterpretation of CBC data. Current Interpretive Data was last revised on 2018. Blood 10/02/2024 4:01 PM DRY PAN CHARGER 10/02/2024 4:17 PM DRY PAN CHARGER James Robles MD LAB BLOOD ORDERABLES Final Resu lt Performing Organization Address [facility] Co de Phone Number [facility] [place] [address] * Protime-INR (10/02/2024 4:01 PM DRY PAN CHARGER) PT 12.4 9.7 - 13.0 sec INR 1.14 0.90 - 1.20 [facility] Comment: Interpretive data Oral anticoagulant therapeutic ranges: Venous thromboembolism prophylaxis or treatment: 2.0-3.0 CARDIOLOGY Standard range: 2.0-3.0 High-intensity range: 2.5-3.5 Refer to indication-specific guidelines for appropriate target ranges for prosthetic heart valve replacement. Current interpretive data was last revised on 2019. Blood 10/02/2024 4:01 PM DRY PAN CHARGER 10/02/2024 4:16 PM DRY PAN CHARGER James Robles MD LAB BLOOD ORDERABLES Final Resu lt Performing Organization Address [facility] de Phone Number [facility] Department [place] [address] * (ABNORMAL) aPTT (10/02/2024 4:01 PM DRY PAN CHARGER) aPTT 27(L) 28 - 38 sec Comment: Interpretive Data Heparin therapeutic range: 66.0 - 100.0 seconds. Range based on correlation with therapeutic heparin activity range of 0.3 - 0.7 Units/mL. Current interpretive data was last revised on 2023. Blood 10/02/2024 4:01 PM DRY PAN CHARGER 10/02/2024 4:16 PM DRY PAN CHARGER James Robles MD LAB BLOOD ORDERABLES Final Resu lt Performing Organization Address [facility] Co de Phone Number [facility] Department [place] [address] * (ABNORMAL) CBC with auto differential (10/02/2024 4:01 PM DRY PAN CHARGER) Pathologist [facility] WBC 16.3(H) 3.8 - 9.9 K/cumm Hgb 12.7(L) 13.0 - 17.5 g/dL [facility] Hct 38.7(L) 38.9 - 50.3 % [facility] Plt 255 150 - 400 K/cumm [facility] MPV 9.8 9.1 - 12.3 fL [facility] RBC 4.10(L) 4.30 - 5.80 M/cumm [facility] MCV 94.4 81.3 - 96.4 fL [facility] MCH 31.0 27.1 - 33.3 pg [facility] MCHC 32.8 32.3 - 35.7 g/dL [facility] RDW CV 12.9 11.1 - 14.9 % [facility] RDW SD 44.5 35.7 - 48.1 fL [facility] NRBC abs 0.00 0.00 - 0.01 K/cumm [facility] Blood 10/02/2024 4:01 PM DRY PAN CHARGER 10/02/2024 4:17 PM DRY PAN CHARGER us James Robles MD LAB BLOOD ORDERABLES Final Resu lt [facility] Department [place] [address] * Phosphorus (10/02/2024 4:01 PM DRY PAN CHARGER) Pathologist [facility] Phosphorus, pl 2.4 2.3 - 4.5 mg/dL Blood 10/02/2024 4:01 PM DRY PAN CHARGER 10/02/2024 4:17 PM DRY PAN CHARGER James Robles MD LAB BLOOD ORDERABLES Final Resu lt [facility] Department [place] [address] * Magnesium (10/02/2024 4:01 PM DRY PAN CHARGER) Pathologist [facility] Magnesium 1.9 1.4 - 2.5 mg/dL Blood 10/02/2024 4:01 PM DRY PAN CHARGER 10/02/2024 4:17 PM DRY PAN CHARGER James Robles MD LAB BLOOD ORDERABLES Final Resu lt [facility] Department [place] [address] * (ABNORMAL) Comprehensive metabolic panel (10/02/2024 4:01 PM DRY PAN CHARGER) Pathologist [facility] Sodium 141 135 - 145 mmol/L Potassium, pl 4.2 3.3 - 4.9 mmol/L [facility] Chloride 112(H) 97 - 110 mmol/L [facility] CO2 22 22 - 32 mmol/L [facility] Anion gap 7 2 - 15 mmol/L [facility] BUN 16 6 - 25 mg/dL [facility] Creatinine 1.30 0.80 - 1.30 mg/dL [facility] Glucose 118 70 - 199 mg/dL [facility] Comment: Interpretive Data Fasting glucose >/= 126 [...] 2022. Calcium 8.3(L) 8.5 - 10.3 mg/dL [facility] Bilirubin, total 0.2 0.1 - 1.2 mg/dL [facility] Protein, pl 5.5(L) 6.5 - 8.5 g/dL [facility] Albumin 3.4(L) 3.5 - 5.0 g/dL [facility] Alk phos 64 40 - 130 Units/L [facility] ALT 19 7 - 55 Units/L [facility] AST 21 10 - 50 Units/L [facility] Blood 10/02/2024 4:01 PM DRY PAN CHARGER 10/02/2024 4:17 PM DRY PAN CHARGER us James Robles MD LAB BLOOD ORDERABLES Final Resu lt [facility] Department [place] [address] * (ABNORMAL) POC Blood Gas and Chemistries, Arterial - (10/02/2024 2:30 PM DRY PAN CHARGER) pH, Art POC 7.31(L) 7.35 - 7.45 pCO2, Art POC 41 35 - 45 mmHg [facility] pO2, Art POC 264(H) 83 - 108 mmHg [facility] Na, POC 140 135 - 145 mmol/L [facility] K POC 4.0 3.3 - 4.9 mmol/L [facility] Comment: Interpretive Data Not all point of care methods assess for hemolysis. Confirm with instrument and retest K+ if not consistent with clinical signs and symptoms. Current Interpretive Data was last revised on 2024. Cl, POC 111(H) 97 - 110 mmol/L [facility] Ionized Ca, POC 4.86 4.50 - 5.10 mg/dL [facility] Glucose, POC 104 70 - 199 mg/dL [facility] Lactate, POC 1.1 0.7 - 2.2 mmol/L [facility] SO2 (cas) arterial 100(H) 90 - 95 % [facility] Base excess, POC -5.4 mmol/L [facility] Hct, POC 37.0(L) 41.4 - 51.6 % [facility] Total Hb, POC 12.4(L) 13.8 - 17.2 g/dL [facility] Blood 10/02/2024 2:30 PM DRY PAN CHARGER 10/02/2024 2:30 PM DRY PAN CHARGER James Robles MD LAB POCT ORDERABLES - DEVICE Fi nal Result [facility] Department [place] [address] * FL Fluoroscopy < 1 Hour (10/02/2024 2:00 PM DRY PAN CHARGER) Narrative [facility] - 10/03/2024 5:04 PM DRY PAN CHARGER The images from this study are not interpreted by Radiology. ??Please refer to the physician's procedure / OR operative note. James Robles MD IMG FLUOROSCOPY PROCEDURES Cammy l Result Performing Organization Address City/[facility]/ZIP Co de Phone Number [email or web address] * (ABNORMAL) POC Blood Gas and Chemistries, Arterial - (10/02/2024 10:43 AM DRY PAN CHARGER) pH, Art POC 7.32(L) 7.35 - 7.45 pCO2, Art POC 41 35 - 45 mmHg [facility] pO2, Art POC 239(H) 83 - 108 mmHg [facility] Na, POC 141 135 - 145 mmol/L [facility] K POC 4.0 3.3 - 4.9 mmol/L [facility] Comment: Interpretive Data Not all point of care methods assess for hemolysis. Confirm with instrument and retest K+ if not consistent with clinical signs and symptoms. Current Interpretive Data was last revised on 2024. Cl, POC 112(H) 97 - 110 mmol/L [facility] Ionized Ca, POC 4.92 4.50 - 5.10 mg/dL [facility] Glucose, POC 97 70 - 199 mg/dL [facility] Lactate, POC 1.0 0.7 - 2.2 mmol/L [facility] SO2 (cas) arterial 100(H) 90 - 95 % [facility] Base excess, POC -4.7 mmol/L [facility] Hct, POC 35.0(L) 41.4 - 51.6 % [facility] Total Hb, POC 11.8(L) 13.8 - 17.2 g/dL [facility] Blood 10/02/2024 10:4 3 AM DRY PAN CHARGER 10/02/2024 10:43 AM DRY PAN CHARGER James Robles MD LAB POCT ORDERABLES - DEVICE Fi nal Result Performing Organization Address City/[facility]/ZIP Co de Phone Number [facility] Department [place] [address] * Type and screen (10/02/2024 6:18 AM DRY PAN CHARGER) Ramu, indirect Negative ABO Rh B Negative [facility] Blood 10/02/2024 6:18 AM DRY PAN CHARGER 10/02/2024 6:26 AM DRY PAN CHARGER Narrative [facility] - 10/02/2024 7:28 AM DRY PAN CHARGER Has the patient had Daratumumab or Isatuximab in the past 6 months?->Unknown Sully Archer MANAGER PUBLISHING LAB BLOOD BANK TEST ORDER TALYA Final Result Performing Organization Address [facility] Co de Phone Number [facility] [place] [address] documented in this encounter 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 Given 10/02/2024 6:15 AM DRY PAN CHARGER 1,000 mg acetaminophen (TYLENOL) tablet 1,000 mg 1,000 mg, oral, Every 6 hours scheduled, First dose on Wed10/02/24 at 1545, Phase I & Post-op Floor Given 10/05/2024 12:45 PM DRY PAN CHARGER 1,000 mg Given 10/05/2024 5:51 AM DRY PAN CHARGER 1,000 mg Given 10/05/2024 12:39 AM DRY PAN CHARGER 1,000 mg acetaminophen (TYLENOL) tablet 1,000 mg 1,000 mg, oral, Every 6 hours PRN, 1st line for pain, fever, Starting on Tyra 10/05/24 at 1315, Phase I & Post-op Floor Given 10/14/2024 9:52 AM DRY PAN CHARGER 1,000 mg Given 10/13/2024 6:47 PM DRY PAN CHARGER 1,000 mg Given 10/13/2024 1:03 AM DRY PAN CHARGER 1,000 mg apixaban (ELIQUIS) tablet 5 mg 5 mg, oral, Every 12 hours scheduled, First dose on Wed10/13/24 at 2100, Nurse to discontinue heparin infusion order at first administration of apixaban using 'order condition met' order source, Indications: Venous ThrombosisIndications:Venous Thrombosis Given 10/14/2024 9: 51 AM DRY PAN CHARGER 5 mg Given 10/13/2024 9:02 PM DRY PAN CHARGER 5 mg azithromycin (ZITHROMAX) tablet 500 mg 500 mg, oral, Daily, First dose on Wed10/04/24 at 0930, For 3 days, Indications: Pneumonia, Community AcquiredIndications:Pneumonia, Community Acquired Given 10/06/2024 8:51 AM DRY PAN CHARGER 500 mg Given 10/05/2024 8:47 AM DRY PAN CHARGER 500 mg Given 10/04/2024 10:39 AM DRY PAN CHARGER 500 mg baclofen (LIORESAL) tablet 10 mg 10 mg, oral, 2 times daily, First dose on Wed10/02/24 at 1730, Phase I & Post-op Floor, Indications: Muscle Spasticity of Spinal OriginIndications:Muscle Spasticity of Spinal Origin Given 10/14/2024 9:52 AM DRY PAN CHARGER 10 mg Given 10/13/2024 9:02 PM DRY PAN CHARGER 10 mg Given 10/13/2024 9:44 AM DRY PAN CHARGER 10 mg bisacodyL (DULCOLAX) suppository 10 mg 10 mg, rectal, Daily PRN, constipation, Starting on Wed10/02/24 at 1933, Phase I & Post-op Floor, If not bowel movement in 48 hours., Indications: constipationIndications:constipati on Given 10/05/2024 11:37 PM DRY PAN CHARGER 10 mg bisacodyL (DULCOLAX) suppository 10 mg 10 mg, rectal, Daily, First dose (after last modification) on Tyra 10/12/24 at 1015, Phase I & Post-op Floor, If not bowel movement in 48 hours., Indications: constipationIndications:constipati on ceFAZolin (ANCEF) 2,000 mg/20 mL in sterile water (premix) 2,000 mg 2,000 mg, intravenous, at 400 mL/hr, Administer over 3 Minutes, Every 8 hours, First dose on Wed10/02/24 at 2100, For 2 doses, Starting 8 hours after last estrella-operative dose., Indications: Prophylaxis, SurgicalIndications:Prophylaxis, Surgical Given 10/03/2024 4:56 AM DRY PAN CHARGER 2,000 mg 400 mL/hr Given 10/02/2024 8:37 PM DRY PAN CHARGER 2,000 mg 400 mL/hr cefTRIAXone (ROCEPHIN) 2,000 mg/20 mL in sterile water (premix) 2,000 mg 2,000 mg, intravenous, at 240 mL/hr, Administer over 5 Minutes, Every 24 hours scheduled, First dose on Wed10/04/24 at 1000, For 5 doses, Indications: Pneumonia, Community AcquiredIndications:Pneumonia, Community Acquired Given 10/08/2024 10:38 AM DRY PAN CHARGER 2,000 mg 240 mL/hr Given 10/07/2024 9:03 AM DRY PAN CHARGER 2,000 mg 240 mL/hr Given 10/06/2024 9:22 AM DRY PAN CHARGER 2,000 mg 240 mL/hr dexAMETHasone (DECADRON) 4 mg/mL injection 4 mg 4 mg, intravenous, Administer over 2 Minutes, Every 6 hours scheduled, First dose on Wed10/02/24 at 1800, Phase I & Post-op Floor, If cannot tolerate enteral administration., Indications: Cerebral EdemaIndications:Cerebral Edema Given 10/02/2024 4:45 PM DRY PAN CHARGER 4 mg dexAMETHasone (DECADRON) 4 mg/mL injection 6 mg 6 mg, intravenous, Administer over 2 Minutes, Every 6 hours scheduled, First dose (after last modification) on Wed10/03/24 at 0000, Phase I & Post-op Floor, If cannot tolerate enteral administration., Indications: Cerebral EdemaIndications:Cerebral Edema Given 10/03/2024 11:53 AM DRY PAN CHARGER 6 mg dexAMETHasone (DECADRON) tablet 1 mg 1 mg, oral, Every 8 hours scheduled, First dose on Wed10/08/24 at 2200, For 1 day Given 10/09/2024 3:45 PM DRY PAN CHARGER 1 mg Given 10/09/2024 6:33 AM DRY PAN CHARGER 1 mg Given 10/08/2024 9:10 PM DRY PAN CHARGER 1 mg dexAMETHasone (DECADRON) tablet 1 mg 1 mg, oral, Every 12 hours scheduled, First dose on Wed10/09/24 at 2200, For 1 day Given 10/10/2024 12:41 PM DRY PAN CHARGER 1 m g Given 10/10/2024 12:27 AM DRY PAN CHARGER 1 mg dexAMETHasone (DECADRON) tablet 1 mg 1 mg, oral, Daily, First dose on Wed10/11/24 at 0900, For 1 day Given 10/11/2024 8:47 AM DRY PAN CHARGER 1 mg dexAMETHasone (DECADRON) tablet 2 mg 2 mg, oral, Every 8 hours scheduled, First dose on Wed10/07/24 at 2200, For 1 day Given 10/08/2024 3:00 PM DRY PAN CHARGER 2 mg Given 10/08/2024 5:28 AM DRY PAN CHARGER 2 mg Given 10/07/2024 9:51 PM DRY PAN CHARGER 2 mg dexAMETHasone (DECADRON) tablet 4 mg 4 mg, oral, Every 6 hours scheduled, First dose on Wed10/05/24 at 1800, For 1 day Given 10/06/2024 12:40 PM DRY PAN CHARGER 4 m g Given 10/06/2024 5:12 AM DRY PAN CHARGER 4 mg Given 10/05/2024 11:22 PM DRY PAN CHARGER 4 mg dexAMETHasone (DECADRON) tablet 4 mg 4 mg, oral, Every 8 hours scheduled, First dose on Wed10/06/24 at 1800, For 1 day Given 10/07/2024 2:13 PM DRY PAN CHARGER 4 mg Given 10/07/2024 5:38 AM DRY PAN CHARGER 4 mg Given 10/06/2024 5:26 PM DRY PAN CHARGER 4 mg dexAMETHasone (DECADRON) tablet 6 mg 6 mg, oral, Every 6 hours scheduled, First dose (after last modification) on Wed10/03/24 at 0000, Phase I & Post-op Floor, If able to swallow tablets., Indications: Cerebral EdemaIndications:Cerebral Edema Given 10/05/2024 12:45 PM DRY PAN CHARGER 6 mg Given 10/05/2024 5:51 AM DRY PAN CHARGER 6 mg Given 10/05/2024 12:39 AM DRY PAN CHARGER 6 mg docusate sodium (COLACE) capsule 100 mg 100 mg, oral, 2 times daily, First dose on Wed10/02/24 at 2100, Phase I & Post-op Floor, If able to swallow capsules. Hold for diarrhea., Indications: constipation, Stool SoftenerIndications:constipation,Stool Softener Given 10/13/2024 9:02 PM DRY PAN CHARGER 100 mg Given 10/12/2024 8:59 AM DRY PAN CHARGER 100 mg Given 10/11/2024 8:46 PM DRY PAN CHARGER [address] (CYMBALTA) extended release capsule 30 mg 30 mg, oral, 2 times daily, First dose on Wed10/02/24 at 2100, Phase I & Post-op Floor, Capsule may be opened and contents mixed with applesauce or apple juice ONLY. Do not crush or chew capsule, Indications: Neuropathic PainIndications:Neuropathic Pain Given 10/14/2024 9:51 AM DRY PAN CHARGER 30 mg Given 10/13/2024 9:02 PM DRY PAN CHARGER 30 mg Given 10/13/2024 9:45 AM DRY PAN CHARGER 30 mg enoxaparin (LOVENOX) syringe 30 mg 30 mg, subcutaneous, Daily (for enoxaparin), First dose on Wed10/03/24 at 2100, Phase I & Post-op Floor, Indications: VTE ProphylaxisIndications:VTE Prophylaxis Given 10/09/2024 8:20 PM DRY PAN CHARGER 30 mg Left Lower Abdomen Given 10/08/2024 9:10 PM DRY PAN CHARGER 30 mg Le ft Lower Abdomen Given 10/07/2024 9:51 PM DRY PAN CHARGER 30 mg Ri ght Lower Abdomen famotidine (PEPCID) injection 20 mg 20 mg, intravenous, Administer over 2 Minutes, Every 12 hours scheduled, First dose on Wed10/02/24 at 2100, Phase I & Post-op Floor, If unable to tolerate enteral administration., Indications: Prevention of Stress UlcerIndications:Prevention of Stress Ulcer Given 10/03/2024 9:16 AM DRY PAN CHARGER 20 mg famotidine (PEPCID) tablet 20 mg 20 mg, oral, Every 12 hours scheduled, First dose on Wed10/02/24 at 2100, Phase I & Post-op Floor, If able to swallow tablets., Indications: Prevention of Stress UlcerIndications:Prevention of Stress Ulcer Given 10/14/2024 9:52 AM DRY PAN CHARGER 20 mg Given 10/13/2024 9:02 PM DRY PAN CHARGER 20 mg Given 10/13/2024 9:45 AM DRY PAN CHARGER 20 mg finasteride (PROSCAR) tablet 5 mg 5 mg, oral, Every morning, First dose on Wed10/03/24 at 0900, Do not crush, break, or open., Indications: benign prostatic hyperplasia with lower urinary tract sxIndications:benign prostatic hyperplasia with lower urinary tract sx Given 10/14/2024 9:51 AM DRY PAN CHARGER 5 mg Given 10/13/2024 9:45 AM DRY PAN CHARGER 5 mg Given 10/12/2024 8:59 AM DRY PAN CHARGER 5 mg gabapentin (NEURONTIN) capsule 300 mg 300 mg, oral, Once, On Wed10/02/24 at 0630, For 1 dose, Pre-Op, Administer 60 minutes prior to surgery. Given 10/02/2024 6:15 AM DRY PAN CHARGER 300 mg heparin in 0.45% sodium chloride 25,000 units/250 mL (100 units/mL) infusion (premix) 0-33 Units/kg/hr ? 104.3 kg (0-34.419 mL/hr, rounded to 0-34.42 mL/hr), intravenous, Titrated, Starting on Wed10/10/24 at 1145, For 3 days 10 hours, WEIGHT-BASED HEPARIN INFUSION Begin infusion at dose of : 7.6 Units/kg/hr Max initial dose: 800 units/hr Titration Instructions- Adjust dose based on PTT Results STAT PTT timing: - Draw 6 hours after heparin infusion initiation - Draw 6 hours after every dose change until 2 consecutive PTTs are therapeutic - Once 2 consecutive PTTs are therapeutic, draw with daily labs until infusion is discontinued - - Restart every 6 hour lab draws and follow instructions accordingly if PTT is outside of therapeutic range PTT results: Less than 36 seconds: INCREASE infusion dose by 2 (TWO) units/kg/hour 36 - 45 seconds: INCREASE infusion dose by 1 (ONE) unit/kg/hour 46 - 70 seconds (therapeutic): No change 71 - 80 seconds: DECREASE infusion dose by 1 (ONE) unit/kg/hour 81 - 90 seconds: Hold infusion for 30 minutes, then DECREASE infusion dose by 2 (TWO) units/kg/hour 91 - 101 seconds: Hold infusion for 1 hour, then DECREASE infusion dose by 3 (THREE) units/kg/hour 102 seconds or greater: Hold infusion for 1 hour, then DECREASE infusion dose by 4 (FOUR) units/kg/hour, Indications: Venous ThrombosisIndications:Venous Thrombosis New Bag 10/13/2024 4:24 PM DRY PAN CHARGER 9.6 Units/kg/hr 10.01 mL/hr New Bag 10/12/2024 8:50 AM DRY PAN CHARGER 9.6 Units/kg/hr 10.01 mL /hr Rate/Dose Change 10/11/2024 6:40 PM DRY PAN CHARGER 9.6 Units/kg/hr 10 .01 mL/hr hydrALAZINE (APRESOLINE) injection 10 mg 10 mg, intravenous, Administer over 2 Minutes, Once, On Wed10/08/24 at 0545, For 1 dose Given 10/08/2024 5:28 AM DRY PAN CHARGER 10 mg HYDROmorphone (DILAUDID) injection 0.2 mg 0.2 mg, intravenous, Administer over 2 Minutes, Every 10 min PRN, 1st line for pain, Starting on Wed10/02/24 at 1550, Phase I, Switch to 2nd line analgesic order if pain is uncontrolled or increasing after 2 doses. Notify Anesthesiologist if total PACU dose reaches 2 mg and pain score 5/10 or more., Indications: PainIndications:Pain Given 10/02/2024 4:59 PM DRY PAN CHARGER 0.2 mg Given 10/02/2024 4:45 PM DRY PAN CHARGER 0.2 mg Lactated Ringer's (LR) infusion 30 mL/hr, intravenous, Continuous, Starting on Wed10/02/24 at 0630, Pre-Op Restarted 10/02/2024 3:02 PM DRY PAN CHARGER Rate/Dose Change 10/02/2024 8:33 AM DRY PAN CHARGER 30 mL/h r Rate/Dose Verify 10/02/2024 7:29 AM DRY PAN CHARGER 30 mL/h r magnesium sulfate 2 g/50 mL in water (premix) 2 g 2 g, intravenous, Administer over 60 Minutes, Once, On Wed10/03/24 at 1530, For 1 dose New Bag 10/03/2024 3:18 PM DRY PAN CHARGER 2 g oxyCODONE (ROXICODONE) tablet 5 mg 5 mg, oral, Once as needed, 1st line for pain, Starting on Wed10/02/24 at 1550, For 1 dose, Phase I, When able to tolerate PO., Indications: PainIndications:Pain Given 10/02/2024 4:42 PM DRY PAN CHARGER 5 mg oxyCODONE (ROXICODONE) tablet 5 mg 5 mg, oral, Every 4 hours PRN, 2nd line for pain, Starting on Wed10/02/24 at 1933, Phase I & Post-op Floor, May repeat in 1 hour if pain is uncontrolled or increasing. Max 2 doses within 1 dosing interval., Indications: PainIndications:Pain Given 10/14/2024 1:41 PM DRY PAN CHARGER 5 mg Given 10/14/2024 9:52 AM DRY PAN CHARGER 5 mg Given 10/14/2024 6:16 AM DRY PAN CHARGER 5 mg phenylephrine in 0.9% sodium chloride (LUCIO-SYNEPHRINE) 25,000 mcg/250 mL (100 mcg/mL) infusion (premix) solution 0-4 mcg/kg/min ? 98.9 kg (0-237.36 mL/hr), 100 mcg/mL, intravenous, Titrated, Starting on Wed10/02/24 at 1615, Until Wed10/03/24 at 1438, Phase I & Post-op Floor, Initial rate: 0.5 mcg/kg/min, Titrate: Up/Down, Titrate by: 0.1 mcg/kg/min, Every: 2 minutes, Goal: MAP, MAP Goal: Other (comment) / >110, Protect from light, Routine Rate/Dose Change 10/03/2024 2:04 PM DRY PAN CHARGER 1.7 mcg/kg/min 101 mL/hr New Bag 10/03/2024 1:45 PM DRY PAN CHARGER 1.6 mcg/kg/min 94.9 mL/h r Rate/Dose Change 10/03/2024 1:39 PM DRY PAN CHARGER 1.6 mcg/kg/min 94. 9 mL/hr phenylephrine in 0.9% sodium chloride (LUCIO-SYNEPHRINE) 25,000 mcg/250 mL (100 mcg/mL) infusion (premix) solution 0-4 mcg/kg/min ? 98.9 kg (0-237.36 mL/hr), 100 mcg/mL, intravenous, Titrated, Starting on Wed10/03/24 at 1515, Until Wed10/03/24 at 1606, Phase I & Post-op Floor, Initial rate: 0.5 mcg/kg/min, Titrate: Up/Down, Titrate by: 0.1 mcg/kg/min, Every: 2 minutes, Goal: MAP, MAP Goal: Other (comment) / 110-120, Protect from light, Routine New Bag 10/03/2024 4:03 PM DRY PAN CHARGER 2.8 mcg/kg/min 166 mL/hr Rate/Dose Change 10/03/2024 3:36 PM DRY PAN CHARGER 2.8 mcg/kg/min 166 mL/hr Rate/Dose Change 10/03/2024 3:34 PM DRY PAN CHARGER 2.7 mcg/kg/min 160 mL/hr phenylephrine in 0.9% sodium chloride (LUCIO-SYNEPHRINE) 25,000 mcg/250 mL (100 mcg/mL) infusion (premix) solution 0-4 mcg/kg/min ? 98.9 kg (0-237.36 mL/hr), 100 mcg/mL, intravenous, Titrated, Starting on Wed10/03/24 at 1645, Until Wed10/04/24 at 1107, Phase I & Post-op Floor, Initial rate: 0.5 mcg/kg/min, Titrate: Up/Down, Titrate by: 0.1 mcg/kg/min, Every: 2 minutes, Goal: MAP, MAP Goal: Other (comment) / 90-100, Protect from light, Routine Rate/Dose Change 10/04/2024 7:46 AM DRY PAN CHARGER 0.4 mcg/kg/min 23.7 mL/hr Rate/Dose Change 10/04/2024 7:39 AM DRY PAN CHARGER 0.3 mcg/kg/min 17. 8 mL/hr Rate/Dose Change 10/04/2024 7:27 AM DRY PAN CHARGER 0.2 mcg/kg/min 11. 87 mL/hr phenylephrine in 0.9% sodium chloride (LUCIO-SYNEPHRINE) 25,000 mcg/250 mL (100 mcg/mL) infusion (premix) solution 0-4 mcg/kg/min ? 98.9 kg (0-237.36 mL/hr), 100 mcg/mL, intravenous, Titrated, Starting on Wed10/04/24 at 1145, Until Tyra 10/05/24 at 1609, Phase I & Post-op Floor, Initial rate: 0.5 mcg/kg/min, Titrate: Up/Down, Titrate by: 0.1 mcg/kg/min, Every: 2 minutes, Goal: MAP, MAP Goal: Other (comment) / 80 - 90, Protect from light, Routine Restarted 10/04/2024 9:35 PM DRY PAN CHARGER 0.1 mcg/kg/min 5.93 mL/hr Rate/Dose Change 10/04/2024 7:17 PM DRY PAN CHARGER 0.1 mcg/kg/min 5.9 3 mL/hr New Bag 10/04/2024 3:07 PM DRY PAN CHARGER 0.2 mcg/kg/min 11.87 mL/ hr polyethylene glycol (MIRALAX) packet 17 g 17 g, oral, Daily, First dose on Wed10/02/24 at 2015, Phase I & Post-op Floor, Hold for diarrhea., Indications: constipationIndications:constipation Given 10/12/2024 8:58 AM DRY PAN CHARGER 17 g Given 10/11/2024 8:47 AM DRY PAN CHARGER 17 g Given 10/10/2024 8:00 AM DRY PAN CHARGER 17 g senna (SENOKOT) tablet 1 tablet 1 tablet, oral, 2 times daily, First dose on Wed10/02/24 at 2100, Phase I & Post-op Floor, If able to swallow tablets. Hold for diarrhea., Indications: constipationIndications:constipation Given 10/13/2024 9:02 PM DRY PAN CHARGER 1 table t Given 10/12/2024 8:59 AM DRY PAN CHARGER 1 tablet Given 10/11/2024 8:46 PM DRY PAN CHARGER 1 tablet sodium chloride 0.9% bolus 1,000 mL 1,000 mL, intravenous, Once, On Wed10/03/24 at 1015, For 1 dose New Bag 10/03/2024 9:42 AM DRY PAN CHARGER 1,000 mL Right Hand sodium chloride 0.9% flush 0.5-20 mL 0.5-20 mL, intra-catheter, Every 8 hours scheduled, First dose on Wed10/02/24 at 2200, Flush volume based on line type and size. , Indications: FlushingIndications:Flushing Given 10/04/2024 5:05 AM DRY PAN CHARGER 10 mL Given 10/03/2024 9:44 PM DRY PAN CHARGER 10 mL Given 10/03/2024 2:28 PM DRY PAN CHARGER 5 mL sodium chloride 0.9% flush 0.5-20 mL 0.5-20 mL, intra-catheter, As needed, line care, Starting on Wed10/02/24 at 1933, Flush volume based on line type and size. Flush before and after each use. , Indications: FlushingIndications:Flushing Given 10/10/2024 8:06 PM DRY PAN CHARGER 10 mL sodium chloride 0.9% flush 0.5-20 mL 0.5-20 mL, intra-catheter, Every 8 hours scheduled, First dose on Wed10/02/24 at 2200, Flush volume based on line type and size. , Indications: FlushingIndications:Flushing Given 10/04/2024 5:04 AM DRY PAN CHARGER 20 mL Given 10/03/2024 9:44 PM DRY PAN CHARGER 10 mL Given 10/03/2024 2:28 PM DRY PAN CHARGER 5 mL sodium chloride 0.9% infusion 10 mL/hr, intravenous, Continuous, Starting on Wed10/02/24 at 1615, Phase I & Post-op Floor, Carrier Rate/Dose Change 10/04/2024 8:35 AM DRY PAN CHARGER 10 mL/hr 10 mL/hr Rate/Dose Verify 10/04/2024 6:00 AM DRY PAN CHARGER 100 mL/hr 100 mL/ hr Rate/Dose Verify 10/04/2024 5:00 AM DRY PAN CHARGER 100 mL/hr 100 mL/ hr sodium chloride 0.9% infusion 100 mL/hr, intravenous, Continuous, Starting on 10/07/24 at 1000 New Bag 10/08/2024 9:16 PM DRY PAN CHARGER 100 mL/hr 100 mL/hr New Bag 10/08/2024 11:15 AM DRY PAN CHARGER 100 mL/hr 100 mL/hr New Bag 10/08/2024 12:28 AM DRY PAN CHARGER 100 mL/hr 100 mL/hr sodium chloride 0.9% infusion 100 mL/hr, intravenous, Continuous, Starting on Wed10/11/24 at 0530 New Bag 10/13/2024 9:02 PM DRY PAN CHARGER 100 mL/hr 100 mL/hr New Bag 10/13/2024 7:20 AM DRY PAN CHARGER 100 mL/hr 100 mL/hr New Bag 10/12/2024 9:08 PM DRY PAN CHARGER 100 mL/hr 100 mL/hr tamsulosin (FLOMAX) extended release capsule 0.4 mg 0.4 mg, oral, Nightly, First dose on Wed10/02/24 at 2100, Phase I & Post-op Floor, Do not crush, chew, cut, dissolve, open or otherwise manipulate tablet/capsule., Indications: benign prostatic hyperplasia with lower urinary tract sx, On hold since Wed10/03/2024 at 1446 until manually unheldIndications:benign prostatic hyperplasia with lower urinary tract sx Given 10/02/2024 9:04 PM DRY PAN CHARGER 0.4 mg tamsulosin (FLOMAX) extended release capsule 0.4 mg 0.4 mg, oral, Daily with dinner, First dose on Wed10/09/24 at 0715, Do not crush, chew, cut, dissolve, open or otherwise manipulate tablet/capsule. Given 10/13/2024 6:47 PM DRY PAN CHARGER 0.4 mg Given 10/12/2024 5:13 PM DRY PAN CHARGER 0.4 mg Given 10/11/2024 5:57 PM DRY PAN CHARGER 0.4 mg vancomycin 1500 mg/515 mL in sodium chloride 0.9% (premix) 1,500 mg 1,500 mg, intravenous, Administer over 90 Minutes, Once, On Wed10/02/24 at 2015, For 1 dose, Phase I, Administer 12 hours after pre-operative dose., Indications: Prophylaxis, SurgicalIndications:Prophylaxis, Surgical New Bag 10/02/2024 8:38 PM DRY PAN CHARGER 1,500 mg documented in this encounter Discontinued Medications Medication Sig Discontinue Reason Start Date End Da te traMADoL (ULTRAM) 50 mg tablet Take 1 tablet (50 mg total) by mouth every 8 (eight) hours as needed for pain Stop Taking at Discharge 10/14/2024 mupirocin (BACTROBAN) 2 % ointmentIndications:Met hicillin-Resistant S. Aureus Nasal Colonization Apply to each nostril 2 (two) times a day Apply pea size amount into each nostril twice a day for 5 days prior to surgery. Stop Taking at Discharge 07/27/2024 10/14/2024 documented as of this encounter Active and Recently Administered Medications Times are shown in DRY PAN CHARGER. Scheduled Medication Order 10/12/2024 10/13/2024 10/14/2024 apixaban (ELIQUIS) tablet 5 mg 5 mg, oral, Every 12 hours scheduled, First dose on Wed10/13/24 at 2100, Nurse to discontinue heparin infusion order at first administration of apixaban using 'order condition met' order source, Indications: Venous Thrombosis 2101 (Given - Provider: Rosaura Correa RN) 0951 (Given - Provider: Fe Brower RN) baclofen (LIORESAL) tablet 10 mg 10 mg, oral, 2 times daily, First dose on Wed10/02/24 at 1730, Phase I & Post-op Floor, Indications: Muscle Spasticity of Spinal Origin 0858 (Given - Provider: Joyce Guillen RN)2106 (Given - Provider: Rita Beverly) 0944 (Given - Provider: Fe Brower, MARK)2101 (Given - Provider: Rosaura Correa, MARK) 0952 (Given - Provider: Fe Brower RN) bisacodyL (DULCOLAX) suppository 10 mg 10 mg, rectal, Daily, First dose (after last modification) on Tyra 10/12/24 at 1015, Phase I & Post-op Floor, If not bowel movement in 48 hours., Indications: constipation 1045 (Not Given - Provider: Joyce Guillen RN - Reason: Order parameters not met - Comment: Large BM this AM at 0900) 0900 (Not Given - Provider: Roslyn Foley RN - Reason: Patient/family refused) 0900 (Not Given - Provider: Roslyn Foley RN - Reason: Patient/family refused) docusate sodium (COLACE) capsule 100 mg(Linked Group 1) 100 mg, oral, 2 times daily, First dose on Wed10/02/24 at 2100, Phase I & Post-op Floor, If able to swallow capsules. Hold for diarrhea., Indications: constipation, Stool Softener 0859 (Given - Provider: Joyce Guillen RN)2106 (Not Given - Provider: Rita Beverly - Reason: Other - Comment: diarrhea) 0900 (Not Given - Provider: Roslyn Foley RN - Reason: Patient/family refused)2101 (Given - Provider: Rosaura Correa RN) 0900 (Not Given - Provider: Roslyn Foley RN - Reason: Patient/family refused) DULoxetine DR (CYMBALTA) extended release capsule 30 mg 30 mg, oral, 2 times daily, First dose on Wed10/02/24 at 2100, Phase I & Post-op Floor, Capsule may be opened and contents mixed with applesauce or apple juice ONLY. Do not crush or chew capsule, Indications: Neuropathic Pain 0858 (Given - Provider: Joyce Guillen RN)2106 (Given - Provider: Rita Beverly) 0945 (Given - Provider: Fe Brower RN)2101 (Given - Provider: Rosaura Correa RN) 0951 (Given - Provider: Fe Brower RN) famotidine (PEPCID) tablet 20 mg(Linked Group 2) 20 mg, oral, Every 12 hours scheduled, First dose on Wed10/02/24 at 2100, Phase I & Post-op Floor, If able to swallow tablets., Indications: Prevention of Stress Ulcer 0859 (Given - Provider: Joyce Guillen RN)2106 (Given - Provider: Rita Beverly) 0945 (Given - Provider: Fe Brower RN)2101 (Given - Provider: Rosaura Correa RN) 0952 (Given - Provider: Fe Brower RN) finasteride (PROSCAR) tablet 5 mg 5 mg, oral, Every morning, First dose on Wed10/03/24 at 0900, Do not crush, break, or open., Indications: benign prostatic hyperplasia with lower urinary tract sx 0859 (Given - Provider: Joyce Guillen RN) 0945 (Given - Provider: Fe Brower RN) 0951 (Given - Provider: Fe Brower RN) polyethylene glycol (MIRALAX) packet 17 g 17 g, oral, Daily, First dose on Wed10/02/24 at 2015, Phase I & Post-op Floor, Hold for diarrhea., Indications: constipation 0858 (Given - Provider: Joyce Guillen RN) 0945 (Not Given - Provider: Fe Brower RN - Reason: Patient/family refused) 0900 (Not Given - Provider: Roslyn Foley RN - Reason: Patient/family refused) senna (SENOKOT) tablet 1 tablet(Linked Group 3) 1 tablet, oral, 2 times daily, First dose on Wed10/02/24 at 2100, Phase I & Post-op Floor, If able to swallow tablets. Hold for diarrhea., Indications: constipation 0859 (Given - Provider: Joyce Guillen RN)2106 (Not Given - Provider: Rita Beverly - Reason: Other - Comment: diarrhea) 0900 (Not Given - Provider: Fe Brower, MARK - Reason: Patient/family refused)2101 (Given - Provider: Rosaura Correa RN) 0900 (Not Given - Provider: Roslyn Foley, MARK - Reason: Patient/family refused) tamsulosin (FLOMAX) extended release capsule 0.4 mg 0.4 mg, oral, Daily with dinner, First dose on Wed10/09/24 at 0715, Do not crush, chew, cut, dissolve, open or otherwise manipulate tablet/capsule. 171 (Given - Provider: Joyce Guillen RN) 1846 (Given - Provider: Fe Brower RN) Continuous Medication Order 10/12/2024 10/13/2024 10/14/2024 heparin in 0.45% sodium chloride 25,000 units/250 mL (100 units/mL) infusion (premix) () 0-33 Units/kg/hr ? 104.3 kg (0-34.419 mL/hr, rounded to 0-34.42 mL/hr), intravenous, Titrated, Starting on Wed10/10/24 at 1145, For 3 days 10 hours, WEIGHT-BASED HEPARIN INFUSION Begin infusion at dose of : 7.6 Units/kg/hr Max initial dose: 800 units/hr Titration Instructions- Adjust dose based on PTT Results STAT PTT timing: - Draw 6 hours after heparin infusion initiation - Draw 6 hours after every dose change until 2 consecutive PTTs are therapeutic - Once 2 consecutive PTTs are therapeutic, draw with daily labs until infusion is discontinued - - Restart every 6 hour lab draws and follow instructions accordingly if PTT is outside of therapeutic range PTT results: Less than 36 seconds: INCREASE infusion dose by 2 (TWO) units/kg/hour 36 - 45 seconds: INCREASE infusion dose by 1 (ONE) unit/kg/hour 46 - 70 seconds (therapeutic): No change 71 - 80 seconds: DECREASE infusion dose by 1 (ONE) unit/kg/hour 81 - 90 seconds: Hold infusion for 30 minutes, then DECREASE infusion dose by 2 (TWO) units/kg/hour 91 - 101 seconds: Hold infusion for 1 hour, then DECREASE infusion dose by 3 (THREE) units/kg/hour 102 seconds or greater: Hold infusion for 1 hour, then DECREASE infusion dose by 4 (FOUR) units/kg/hour, Indications: Venous Thrombosis 0715 (Handoff - Provider: Mauricio Esparza RN)0850 (New Bag - Provider: Joyce Guillen, MARK)1923 (Handoff - Provider: Joyce Guillen, MARK) 1314 (Stopped - Provider: Fe Brower, MARK - Comment: iv infusion completed on current bag but infusion because of loss of iv access.)1624 (New Bag - Provider: Fe Brower, MARK)2108 (Stopped - Provider: Rosaura Correa, MARK) sodium chloride 0.9% infusion (CANCELED) 100 mL/hr, intravenous, Continuous, Starting on Wed10/11/24 at 0530 0856 (New Bag - Provider: Joyce Guillen, MARK - Comment: New bag + rate/dose change)210 (New Bag - Provider: Rita Beverly) 0720 (New Bag - Provider: Rita Beverly)2102 (New Bag - Provider: Rosaura Correa, MARK) 1033 (Stopped - Provider: Roslyn Foley RN) PRN Medication Order 10/12/2024 10/13/2024 10/14/2024 acetaminophen (TYLENOL) tablet 1,000 mg 1,000 mg, oral, Every 6 hours PRN, 1st line for pain, fever, Starting on Tyra 10/05/24 at 1315, Phase I & Post-op Floor 0103 (Given - Provider: Rita Beverly)1847 (Given - Provider: Fe Brower, MARK) 0952 (Given - Provider: Fe Brower, MAKR) Carrier Fluids for Secondary Infusion - 0.9% Sodium Chloride 30 mL, intravenous, As needed, For priming tubing and/or flushing, Starting on 10/02/24 at 1933, Phase I & Post-op Floor, 0-250 ml/hr to flush line after IV infusions when no maintenance IV ordered. Infuse 30mL at the same rate as the secondary infusion. Run as primary IV, not intended for KVO. ondansetron (ZOFRAN) injection 4 mg 4 mg, intravenous, Administer over 2 Minutes, Every 6 hours PRN, nausea, vomiting, Starting on Wed10/02/24 at 1933, Phase I & Post-op Floor, Proceed to trimethobenzamide if no relief within 30 minutes. , Indications: Nausea and Vomiting oxyCODONE (ROXICODONE) tablet 5 mg 5 mg, oral, Every 4 hours PRN, 2nd line for pain, Starting on Wed10/02/24 at 1933, Phase I & Post-op Floor, May repeat in 1 hour if pain is uncontrolled or increasing. Max 2 doses within 1 dosing interval., Indications: Pain 0628 (Given - Provider: Mauricio Esparza RN)1425 (Given - Provider: Joyce Guillen RN)1837 (Given - Provider: Joyce Guillen RN) 0103 (Given - Provider: Rita Beverly)0628 (Given - Provider: iRta Beverly)1637 (Given - Provider: Fe Brower RN)2102 (Given - Provider: Rosaura Correa RN) 0138 (Given - Provider: Rosaura Correa RN)0616 (Given - Provider: Rosaura Correa RN)0952 (Given - Provider: Fe Brower RN)1341 (Given - Provider: Fe Brower RN) sodium chloride 0.9% flush 0.5-20 mL 0.5-20 mL, intra-catheter, As needed, line care, Starting on Wed10/02/24 at 1933, Flush volume based on line type and size. Flush before and after each use. , Indications: Flushing Linked Groups Order Group 1: docusate sodium (COLACE) capsule 100 mgJump to med 100 mg, oral, 2 times daily, First dose on Wed10/02/24 at 2100, Phase I & Post- op Floor, If able to swallow capsules. Hold for diarrhea., Indications: constipation, Stool Softener Or docusate (COLACE) 10 mg/mL oral liquid 100 mg (CANCELED) 100 mg, feeding tube, 2 times daily, First dose on Wed10/02/24 at 2100, Phase I & Post-op Floor, If able to receive medications per tube. Hold for diarrhea., Indications: constipation, Stool Softener Group 2: famotidine (PEPCID) tablet 20 mgJump to med 20 mg, oral, Every 12 hours scheduled, First dose on Wed10/02/24 at 2100, Phase I & Post-op Floor, If able to swallow tablets., Indications: Prevention of Stress Ulcer Or famotidine (PEPCID) tablet 20 mg (CANCELED) 20 mg, feeding tube, Every 12 hours scheduled, First dose on Wed10/02/24 at 2100, Phase I & Post-op Floor, If able to receive medications per tube., Indications: Prevention of Stress Ulcer Or famotidine (PEPCID) injection 20 mg (CANCELED) 20 mg, intravenous, Administer over 2 Minutes, Every 12 hours scheduled, First dose on Wed10/02/24 at 2100, Phase I & Post-op Floor, If unable to tolerate enteral administration., Indications: Prevention of Stress Ulcer Group 3: senna (SENOKOT) tablet 1 tabletJump to med 1 tablet, oral, 2 times daily, First dose on Wed10/02/24 at 2100, Phase I & Post-op Floor, If able to swallow tablets. Hold for diarrhea., Indications: constipation Or senna 1.76 mg/mL syrup 8.8 mg (CANCELED) 8.8 mg, feeding tube, 2 times daily, First dose on Wed10/02/24 at 2100, Phase I & Post-op Floor, If able to receive medications per tube. Hold for diarrhea., Indications: constipation documented in this encounter Orders Medications Ordered That En ht Not Have Been Administered Count Last Ordered Date First Ordered Date bisacodyL (DULCOLAX) suppository 10 mg 1 phenylephrine in 0.9% sodium chloride (LUCIO-SYNEPHRINE) 25,000 mcg/250 mL (100 mcg/mL) infusion (premix) solution 1 10/05/2024 lidocaine (PF) (XYLOCAINE) 1 0 mg/mL (1 %) preservative free injection 10-20 mg 1 10/03/2024 sodium chloride 0.9% flush 5-10 mL 1 2023 sodium chloride 0.9% flush 5-20 mL 1 2023 acetaminophen (TYLENOL) 32 m g/mL oral liquid 650 mg 1 10/02/2024 acetaminophen (TYLENOL) suppository 650 mg 1 10/02/2024 acetaminophen (TYLENOL) tablet 650 mg 1 09/2024 Carrier Fluids for Secondary Infusion - 0.9% Sodium Chloride 3 10/02/2024 ceFAZolin (ANCEF) 2,000 mg/2 0 mL in sterile water (premix) 2,000 mg 1 10/02/2024 dexAMETHasone (DECADRON) 0.1 mg/mL oral liquid 4 mg 1 10/02/2024 dexAMETHasone (DECADRON) 0.1 mg/mL oral liquid 6 mg 1 10/02/2024 dexAMETHasone (DECADRON) tablet 4 mg 1 09/22 docusate (COLACE) 10 mg/mL o ral liquid 100 mg 1 10/02/2024 famotidine (PEPCID) tablet 20 mg 1 10/02/20 HYDROmorphone (DILAUDID) injection 0.4 mg 1 10/02/2024 lidocaine (PF) (XYLOCAINE) 1 0 mg/mL (1 %) preservative free injection 2-10 mg 1 10/02/2024 naloxone (NARCAN) 0.4 mg/mL injection 0.04-0.4 mg 1 10/02/2024 ondansetron (ZOFRAN) injection 4 mg 2 10/02 senna 1.76 mg/mL syrup 8.8 mg 1 10/02/2024 sodium chloride 0.9% flush 0.5-20 mL 2 09/22 sodium chloride 0.9% irrigation 1 thrombin-recombinant 5,000 u nit topical solution 1 10/02/2024 traMADoL (ULTRAM) tablet 50 mg 1 10/02/2024 vancomycin 1500 mg/515 mL in sodium chloride 0.9% (premix) 1,500 mg 1 10/02/2024 Imaging Orders Without Results Count Last Order ed Date First Ordered Date PEP THERAPY/AIRWAY CLEARANCE 24 10/13/2024 10/05/2024 EKG Orders Without Results Count Last Ordered D ate First Ordered Date ECG 12-LEAD 2 10/09/2024 10/08/2024 Diet Count Last Ordered Date First Orde red Date ADULT DISCHARGE DIET 1 10/14/2024 Nursing Count Last Ordered Date First Orde red Date DISCHARGE ACTIVITY 3 10/14/2024 DISCHARGE CALL PROVIDER 2 10/14/2024 DISCHARGE DRESSING 5 10/14/2024 DISCHARGE INSTRUCTIONS 4 10/14/2024 INSERT ZHENG CATHETER 1 10/13/2024 BLADDER SCAN 1 10/12/2024 ZHENG CATHETER - DISCONTINUE 1 10/12/2024 STRAIGHT CATH 3 10/12/2024 10/06/2024 Consult Count Last Ordered Date First Orde red Date IP CONSULT TO CARDIOLOGY 1 10/09/2024 IP CONSULT TO HEMATOLOGY 1 10/09/2024 Admission Count Last Ordered Date First Orde red Date ADMIT TO INPATIENT 1 10/02/2024 Transfer Count Last Ordered Date First Orde red Date TRANSFER PATIENT TO NEW UNIT 1 10/05/2024 Discharge Count Last Ordered Date First Orde red Date DISCHARGE PATIENT 1 10/14/2024 documented in this encounter Additional Health Concerns Infection Onset Date Last Indicated Resolved Time COVID: Suspected 10/04/2024 10/04/2024 10/04/2024 11:18 AM DRY PAN CHARGER documented as of this encounter Care Teams Parts Sales Associate Relationship Specialty Start Date End Date Sj Benson MD [address] [facility] [place] [address] PCP - General Family Medicine 07/05/24 documented as of this encounter
--- OUTSIDE RECORDS SUMMARY | 2024-11-14 16:23 | XMS_ITS | Encounter Summary ---
Author Organization [facility] Healthcare Address [address] [place] [address] Care Team Providers Care Continuous Mining Machine Coal Miner Name Role Phone Sj Benson MD Primary Care Provider [phone] Encounter Details Date Type Department Care Team (Late st Contact Info) Description 10/02/2024 Orders Only [facility] Operating Room [address] [place] [id number] James Robles MD [address] 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 Gender Identity Not on file Sexual Orientation Not on file documented as of this encounter Plan of Treatment Not on file documented as of this encounter Procedures Procedure Name Priority Date/Time Associated Diagnosis Comments SURGICAL PATHOLOGY Routine 10/02/2024 12 :15 PM JEWELRY DRILLING MACHINE OPERATOR documented in this encounter Results * Surgical pathology (10/02/2024 12:15 PM JEWELRY DRILLING MACHINE OPERATOR) Soft tissue 10/02/2024 12:1 5 PM JEWELRY DRILLING MACHINE OPERATOR 10/02/2024 3:15 PM JEWELRY DRILLING MACHINE OPERATOR Narrative 10/06/2024 2:00 PM JEWELRY DRILLING MACHINE OPERATOR [facility] [place] [address] NEUROPATHOLOGY REPORT FINAL Patient Name:RYAN DELGADOAddress:[address] [place] [address] CTService:NeurosurgeryAccession #:[id number], [place] ??[id number]:[facility] OR POD 5Taken:10/02/2024Gender: MMRN :[id number]:4DOB:1950 (Age: 74)Hospital #:[id number]:10/02/2024atient Type:[facility] InpatientReported:10/06/2024 ? Physician(s): Abelardo Tijerina M.D. DIAGNOSIS: Soft tissue, arachnoid cyst wall, excision ? - Fragments of paucicellular tissue, consistent with an arachnoid cyst wall (see comment) br/10/05/2024 09:33 By this signature, I attest that [...] Surgical Pathology report is available electronically in [employer]. The performance characteristics of some immunohistochemical stains, fluorescence in-situ hybridization tests and immunophenotyping by flow cytometry cited in this report (if any) were determined by the Surgical Pathology Department at [facility] as part of an ongoing quality auditor program and in compliance with federally mandated [...] determined by the Surgical Pathology Department of [facility]. ??It has not been cleared or approved by the [place]. [place]. Food and Drug Administration. James Robles MD LAB PATHOLOGY ORDERABLES Final Result documented in this encounter Visit Diagnoses Not on filedocumented in this encounter Care Teams Continuous Mining Machine Coal Miner Relationship Specialty Start Date End Date Sj Benson MD [address] [place] [address] PCP - General Family Medicine 07/05/24 documented as of this encounter
--- OUTSIDE RECORDS SUMMARY | 2024-11-14 16:23 | XMS_ITS | Encounter Summary ---
Author Organization 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
--- OUTSIDE RECORDS SUMMARY | 2024-11-14 16:24 | XMS_ITS | Encounter Summary ---
Author Organization [facility] Address [address] [place] [address] Phone Care Team Providers Care Bakery Chef Name Role Phone Sj Benson MD Primary Care Provider [phone] Reason for Referral * Diagnostic Imaging (Routine) - Closed Specialty Diagnoses / Procedures Referred By Hector sosa Referred To Contact Diagnoses Low back pain, non-specific Procedures XR Scoliosis 6 or More Views Neftaly Goetz NP [address] [place] [address] Phone: tel: fax: [address] [phone] Referral ID Status Reason Start Date Expiration Date Visits Re quested Visits Authorized [id number] Closed 07/10/2024 08/09/2025 1 1 Encounter Details Date Type Department Care Team (Late st Contact Info) Description 07/10/2024 Orders Only [facility] Neurosurgery [address] [facility] [address] [place] [address] Neftaly Goetz NP [address] [place] [address] Low back pain, non-specific (Primary Dx) Social History Tobacco Use Types Packs/Day Years Used Date Smoking Tobacco: Never Personal Safety Answer Date Recorded Getting School Help Needed Not on file 06/12 Sex and Gender Information Value Date Recorded Sex Assigned at Not on file 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 ??Moderate degenerative disc disease of the lower lumbar spine with moderate facet arthropathy. 2. ??Spinal cord stimulator leads are intact and without kinking. Dictated by: Gabriel Warner M.D. The radiology attending physician has personally reviewed this study, and had reviewed and/or edited this written report and agrees with it. Electronically signed by: Aly Snyder MD Narrative 07/12/2024 2:16 PM CDT EXAMINATION: XR SCOLIOSIS ??6 OR MORE VIEWS HISTORY: Back Pain FINDINGS: 8 radiographs of the cervical, thoracic, lumbar spine are provided for interpretation. ??Comparison with cervical MRI obtained on 09/01/2023 and thoracic MR on 06/25/2024. There is slight rotatory dextrocurvature of the lumbar spine. ??There is positive sagittal imbalance. ??No coronal imbalance. ??No pelvic obliquity. There is moderate degenerative disc disease from L3 to S1. ??There is moderate facet osteoarthritis of the lower lumbar spine. ??There is appropriate mobility during flexion and extension of the lumbar spine. ?? There is a spinal cord stimulator that enters at T8/9 and terminates at T6/7. ??The leads are intact and without kinking. Procedure Note Clara Snyder MD - 07/12/2024 EXAMINATION: XR SCOLIOSIS 6 OR MORE VIEWS HISTORY: Back Pain FINDINGS: 8 radiographs of the cervical, thoracic, lumbar spine are provided for interpretation. Comparison with cervical MRI obtained on 09/01/2023 and thoracic MR on 06/25/2024. There is slight rotatory dextrocurvature of the lumbar spine. There is positive sagittal imbalance. No coronal imbalance. No pelvic obliquity. There is moderate degenerative disc disease from L3 to S1. There is moderate facet osteoarthritis of the lower lumbar spine. There is appropriate mobility during flexion and extension of the lumbar spine. There is a spinal cord stimulator that enters at T8/9 and terminates at T6/7. The leads are intact and without kinking. IMPRESSION: 1. Moderate degenerative disc disease of the lower lumbar spine with moderate facet arthropathy. 2. Spinal cord stimulator leads are intact and without kinking. Dictated by: Gabriel Warner M.D. The radiology attending physician has personally reviewed this study, and had reviewed and/or edited this written report and agrees with it. Electronically signed by: Aly Snyder MD Neftaly Goetz STAGE DRIVER IMG XR PROCEDURES Final Result documented in this encounter Visit Diagnoses Diagnosis Low back pain, non-specific- Primary Low back pain, non-specific documented in this encounter Care Teams Bakery Chef Relationship Specialty Start Date End Date Sj Benson MD [address] [facility] [place] [address] PCP - General Family Medicine 07/05/24 documented as of this encounter
--- OUTSIDE RECORDS SUMMARY | 2024-11-14 16:24 | XMS_ITS | Encounter Summary ---
Author Organization [facility] Healthcare Address [address] [place] [address] Care Team Providers Care Market Sales Manager Name Role Phone Sj Benson MD Primary Care Provider [phone] Encounter Details Date Type Department Care Team (Latest Contact Info) Description 09/13/2024 10:30 AM CDT Pre-Admission Testing [facility] CAM Pre Anesthesia Testing [address] [place] [address] Preoperative testing (Primary Dx) Anesthesia Record Procedure Summary Procedure Name Responsible Anesthesiologist Anesthesia Start Time Anesthesia Stop Time POSTERIOR LUMBAR/THORACIC WITH INSTRUMENTATION 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 0736 An Intubation 0812 Anesthesia Ready 0918 Proc Start 0918 Incision Start 1330 Quick Note Surgeon request s MAP to 110 1511 Proc Fin 1540 An Extubation 1543 an stop data 1546 Out of Room 1559 Handoff to RN I completed my handoff to the receiving nurse during which we: 1. Patient identified 2. Responsible provider identified 3. Pertinent medical history reviewed 4. Procedure type and surgical course discussed 5. Intraoperative anesthetic management and any significant issues discussed 6. Expectations and concerns for postop period discussed 7. Questions solicited from receiving nurse 8. Patient disposition at the time of handoff: No value filed. 1559 An Stop Meds * Agents No agents on file. * Blood No blood administrations on file. Lines, Drains, and Airways Type Details Placement Removal Wound 10/02/24; 0918; N; Incision; Spine; Mid-line 10/02/24 0918 by Timo Bonilla RN Peripheral IV Placement Date: 10/02/24; Placement Time: 0614; Catheter Size: 18 G; Orientation: Left; Location: Hand; Removal Date: 10/13/24; Removal Time: 1325; Removal Reason: Catheter damage 10/02/24 0614 by Juanis Lozano RN 10/13/24 1325 by Fe Brower RN ETT Placement Date: 10/02/24; Placement Time: 0832 (created via procedure documentation); Mask Ventilation: 0; Technique: Video laryngoscopy; Type: ETT - single; Single Lumen Tube Size: 8 mm; Cuffed: Yes; Laryngoscope: Ramon; Blade Size: 3; Location: Oral; Insertion Attempts: 1; Placement Verification: Auscultation, Capnometry; Removal Date: 10/02/24; Removal Time: 1540 10/02/24 0832 by Vance Morales MD 10/02/24 1540 by Vance Morales MD Arterial Line Placement Date: 10/02/24; Placemnt Time: 0832 (created via procedure documentation); Size: 20 G; Orientation: Right; Location: Radial; Securement: Taped, Transparent dressing; Removal Date: 10/04/24; Removal Time: 1419 10/02/24 0832 by Vance Morales MD 10/04/24 1419 by Eric Valdez RN Urethral Catheter Placement Date: 10/02/24; Placement Time: 0847; Inserted by: Jareth STOKES; Type: Straight-tip, Temperature probe, Non-latex; Balloon Size: 10 mL; Urine Returned: Yes; Removal Date: 10/06/24; Removal Time: 1236; Removal Reason: Per protocol 10/02/24 0847 by Timo Bonilla RN 10/06/24 1236 by Skinny Dubose RN Closed/Suction/Open Drain 10/02/24; 1423; 1; Right, Superior; Back; Bulb; 10 Fr. 10/02/24 1423 by Timo Bonilla RN 10/07/24 0000 by Sia Mathias RN Peripheral IV Placement Date: 10/02/24; Placement Time: 1500; Catheter Size: 18 G; Orientation: Right; Location: Hand; Removal Date: 10/13/24; Removal Time: 1325; Removal Reason: Infiltrated 10/02/24 1500 by Melia Maria RN 10/13/24 1325 by Fe Brower RN documented in this encounter Social History Tobacco Use Types Packs/Day Years Used Date Smoking Tobacco: Never Passive Smoke Exposure: Never Smokeless Tobacco: Never Tobacco Cessation:Counseling Given: Not Answered AUDIT-C Answer Date Recorded Q1: How often do you have a drink containing alcohol? Never 09/13/2024 Q2: How many drinks containi ng alcohol do you have on a typical day when you are drinking? Patient does not drink Q3: How often do you have si x or more drinks on one occasion? Never 09/13/2024 Personal Safety Answer Date Recorded Have you ever been in or are you currently in a harmful physical or emotional relationship or is someone making you feel afraid or unsafe? 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 Gender Identity Not on file Sexual Orientation Not on file documented as of this encounter Last Filed Vital Signs Vital Sign Reading Time Taken Comments Blood Pressure 151/76 09/13/2024 10:32 AM CDT Pulse 82 09/13/2024 10:25 AM CDT Temperature - - Respiratory Rate 16 09/13/2024 10:2 5 AM CDT Oxygen Saturation 100% 09/13/2024 10: 25 AM CDT Inhaled Oxygen Concentration - - Weight 99.3 kg (218 lb 14.4 oz) 024 10:25 AM CDT Height 182.9 cm (6') 09/13/2024 10:25 AM CDT Body Mass Index 29.69 09/13/2024 10:25 AM CDT documented in this encounter Miscellaneous Notes * Perioperative Nursing Note - Alexandra Conti, MARK - 09/13/2024 10:30 AM CDT [facility] Pre[facility] and Planning Perioperative Nursing Note CPAP Clinic at the [facility] ([facility]) Date: 09/13/24 This assessment was completed with the patient and his . Vitals: 09/13/24 1025 09/13/24 1032 BP: 147/82 151/76 BP Location: Right arm Left arm Patient Position: Sitting Sitting Pulse: 82 Resp: 16 SpO2: 100% Weight: 99.3 kg (218 lb 14.4 oz) Height: 182.9 cm (6') CHEST CIRCUMFERENCE: N/A Social History Tobacco Use Smoking Status Never Passive exposure: Never Smokeless Tobacco Never Substance and Sexual Activity Drug Use Never Alcohol Use Q1: How often do you have a drink containing alcohol?: Never Q2: How many drinks containing alcohol do you have on a typical day when you are drinking?: Patientdoes not drink Q3: How often do you have six or more drinks on one occasion?: Never Outpatient Medications Marked as Taking for the 09/13/24 encounter (Pre- Admission Testing) with [facility] NURSE PRE ADMISSION TESTING Medication Sig Dispense Refill baclofen (LIORESAL) 10 mg tablet Take 1 tablet (10 mg total) by mouth 2 (two) times a day DULoxetine DR (CYMBALTA) 30 mg capsule Take 1 capsule (30 mg total) by mouth 2 (two) times a day finasteride (PROSCAR) 5 mg tablet Take 1 tablet (5 mg total) by mouth every morning mupirocin (BACTROBAN) 2 % ointment Apply to each nostril 2 (two) times a day Apply pea size amount into each nostril twice a day for 5 days prior to surgery. 22 g 0 Saccharomyces boulardii (Florastor) 250 mg capsule Take 1 capsule (250 mg total) by mouth every morning tamsulosin (FLOMAX) 0.4 mg extended release capsule Take 1 capsule (0.4 mg total) by mouth nightly traMADoL (ULTRAM) 50 mg tablet Take 1 tablet (50 mg total) by mouth every 8 (eight) hours as neededfor pain Implants No active implants to display in this view. SKIN Piercings Remaining: No Wound (LDAs) Type of Wound (LDA): (patient denies) SCREENINGS Pain Score: 7 Pain Location: Back (Lumbar) Pain Descriptors: Burning Pain Assessment: 0-10 STOP-Bang Total Score: 2 Elder Fall Risk Score (Retired): 55 Elayne index score: 70 Have you ever been in or are you currently in a harmful physical or emotional relationship or is someone making you feel afraid or unsafe?: Denies AD8 Dementia Score: 0 Short Blessed Total Score: 0 NUTRITION PATIENT CARE PLANNING Advance Directives (For Healthcare) Have you reviewed your Advance Directive and is it valid for this stay?: Yes Advance Directive: Patient has advance directive, copy not in chart Advance Directive not in Chart: Copy requested from family (requested from patient) Information Provided on Healthcare Directives: No Communication/Panelbeater Needs Communication Needs: Glasses Does caregiver's language differ from patient's?: No Assistive Devices/DME: Eyeglasses, Walker Hearing - Right Ear: Functional Hearing - Left Ear: Functional Discharge Planning Type of Residence: Private residence Living Arrangements: Spouse/significant other Support Systems: Spouse/significant other Patient expects to be discharged to: Private residence [facility] NO ADDITIONAL COMMENTS/ FOLLOW UP * Pre-Procedure Instructions - Alexandra Conti RN - 09/13/2024 10:30 AM CDT [facility] PRE[facility] ASSESSMENT [facility]ANNING (CPAP) PRE-SURGICAL NURSING INSTRUCTIONS Clinic Assessment General Information Discussed with Patient: Surgery location provided to patient. Arrival time and surgical time will be provided to the patient by their surgeon. You should wear clothing that is clean, loose, comfortable and easy to get in and out of on the dayof surgery. Remove nail coverings, artificial nails and nail mauritanian prior to the day of surgery. This is to lower your risk of infection and to allow the day of surgery team to monitor your oxygen levels. You should leave your valuables and any jewelry at home. No metal or piercings are allowed in the operating room. You should bring your insurance card, a photo ID (example: Home Care Associate's License) and a method of payment for any insurance copay, deductible or copay for discharge medications. You should bring a complete, up-to-date, list of all your medications on the day of surgery, including any over the counter medications or supplements you may take. Please note on your medication list, the last date & time you took each medication. The healthcare team, on the day of surgery, will ask for this information. You should bring your Advanced Directive and/or Living Will with you on the day of surgery if you have not verified a copy is already in your Epic Chart. If you are having surgery at [facility], please arrive on the day of surgery with the name and phone number of your local 24 hour pharmacy. Due to evening discharges, your routine pharmacy may be closed. In order to obtain your prescriptions that evening, your surgeon may need to send prescriptions to this pharmacy or have you take prescriptions to this pharmacy when you are discharged. Without this information, you may not be able to obtain your prescriptions that evening. PREVENTING INFECTION (DECOLONIZATION): Decolonization is the use of a topical antiseptic soap and sometimes a nasal ointment to remove bacteria (germs) from the skin's surface. Antiseptic soap: Chlorhexidine gluconate or CHG (brand name: Hibiclens??) Before surgery, your entire body must be thoroughly cleaned. CHG helps to reduce the bacteria on your skin. You may be given one or more bottles of CHG or you may be asked to obtain from your preferred pharmacy. Be sure to ask your pharmacist if you need help finding this product. Nasal ointment: Mupirocin (brand name: Bactroban)- This will only be ordered for the 5 Day Bathing Protocol. Your surgeon may also prescribe a topical ointment that is rubbed inside each of the nostrils to reduce the bacteria in your nose. Mupirocin ointment requires a prescription. If needed, it will be prescribed by your surgeon and obtained from your preferred pharmacy. SHOWERING WITH ANTISEPTIC SOAP (CHG) What You Need For Each Shower 60 mL (?? cup) of CHG 2 clean washcloths Below is the Pre-Surgical Bathing Protocol you should follow for your surgery. If your surgeon provides you different bathing instructions, please follow your surgeon's orders. 5 Day CHG Bathing & Nasal Ointment (Mupirocin) Protocol The following bathing instructions were discussed with the patient. Patient provided detailed scrubinstructions via A Guide for Patients Having Surgery: Your Pathway to Excellent Care, pages 7-10. Patients may also access the guide via the web link: [email or web address]. Patient stated understanding of the bathing instructions. Other Important Handouts/Education Discussed with Patient: Guide for Patients Having Surgery: Your Pathway to Excellent Care. Reviewed and provided document to patient. Patient stated understanding. Nutrition Education Handout, Fuel Up For Surgery. Reviewed and provided document to patient. Patient stated understanding. Fall preventions/risk education provided. Reviewed and provided below document(s) to patient. Patient stated understanding. Safety Tips for Preventing Falls in the Hospital and at Home. Travel/Exposure Screening: Travel Screening Have you traveled outside the [place] in the last 6 months?: No Exposure Screening Have you been exposed to anyone who is sick in the last 30 days?: No Have you been exposed to or tested positive for COVID-19 within the last 10 days?: No Infectious Disease Screening Are you having any of the following:: None As of 09/15/2022 any COVID TESTING required for surgery will be set up by your surgeon's office. Please reach out to your surgeon's office if you develop any COVID symptoms, test positive for COVID or are exposed to a COVID positive person. All patients should read below section: Information on [facility] & the Orthopedic Center: Please view [email or web address] (Patient & Visitor Information) for additional details regarding Advanced Directive forms, AWARE, directions, parking information, lodging, Internet access, dining and more. For MyChart information, to activate account or password recovery, please go to [email or web address] or call [phone] (toll-free: [phone]), Wed- Wednesday 8am-5pm. Information for Suicide Prevention: National Suicide Prevention Lifeline (1-962-398-TALK (8069)) orcall or text 989. Chat resources: Kel[facility]line[facility]org. Surgery Times: For patients having surgery @ [facility] or [facility] ([facility]), if your surgeon's office has not notified you of your surgery time by NOON THE BUSINESS DAY BEFORE your surgery, please call [phone] and ask for your surgeon's office Dr. Robles. The Center for Preoperative Assessment & Planning (CPAP) does not provide arrival times for theday of surgery or provide the duration of surgery. This information is provided by your surgeon's office or by the center where you are having surgery. We appreciate your understanding. * Pre-Procedure Instructions - Sully Archer NP - 09/13/2024 10:30 AM CDT Center for Preoperative Assessment and Planning CPAP Clinic Location: [facility] The night before your surgery: * Do not eat anything after midnight the night before your procedure. The morning of your surgery: * You may have clear liquids on your surgery day. You must stop drinking two hours before you arrive to the surgery facility. Acceptable clear liquids include water, clear sports drinks, black coffee, tea, or clear soda. DO NOT drink any milk, creamer, or alcohol. * Your surgeon's office may have provided additional instructions or restrictions. Please follow those instructions. * You may brush your teeth and rinse your mouth out. * Do not glue your dentures. * Do not wear jewelry, body piercings, makeup, hairpins, false eyelashes or contact lenses to the hospital. * Leave any valuables at home or with your family. * If you have an implantable device with a remote, bring the remote with you on the day of surgery. * If having surgery at [facility], you may want to bring a credit card if you want to use our Mobile Pharmacy for your discharge medications. Mobile pharmacy is not available at [facility], the Orthopedic Center, or [facility]. Instructions For Your Medications: Pre-Surgery Instructions: Medication Instructions baclofen (LIORESAL) 10 mg tablet Take morning of surgery DULoxetine DR (CYMBALTA) 30 mg capsule Take morning of surgery finasteride (PROSCAR) 5 mg tablet Take morning of surgery mupirocin (BACTROBAN) 2 % ointment Per surgeon's instructions Saccharomyces boulardii (Florastor) 250 mg capsule Don't take on day of surgery tamsulosin (FLOMAX) 0.4 mg extended release capsule Take the evening prior to surgery traMADoL (ULTRAM) 50 mg tablet Take on day of surgery if needed General Instructions For Medications: For medications that you are instructed to take on the morning of surgery, take the medications with a few sips of water. Stop all of these medications 7-14 days prior to your surgery: Vitamin E, Herbal medicines, Diet Pills If you have pain, you may take tylenol (acetaminophen). Do not take more than 6 tablets or 3000 mg (3 g) within a 24 period. Call your surgeon and the CPAP clinic if any of the following happens before surgery: Any changes in your health You have a fever You have any signs of an infection (chest, urinary tract or tooth) You have been to the Emergency Room or were in the hospital You have started taking any new medications If laboratory testing was completed during your visit, we will only contact you regarding any results that require you to take additional action prior to your planned procedure. documented in this encounter Plan of Treatment Not on file documented as of this encounter Results * CPAP aPTT algorithm (09/13/2024 11:37 AM CDT) aPTT 30 28 - 38 sec Comment: Interpretive Data Heparin therapeutic range: 66.0 - 100.0 seconds. Range based on correlation with therapeutic heparin activity range of 0.3 - 0.7 Units/mL. Current interpretive data was last revised on 2023. 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 MEMBER LAB BLOOD ORDERABLES Cammy ramos Result [facility] Department [place] [address] * TYPE AND SCREEN 14 DAY (09/13/2024 11:37 AM CDT) ABO Rh B Negative Ramu, indirect Negative [facility] Blood 09/13/2024 11:3 7 AM CDT 09/13/2024 1:50 PM CDT Narrative REYNALDO MAHARAJ - 09/13/2024 3:22 PM CDT Has the patient had Daratumumab or Isatuximab in the past 6 months?->Unknown Is this test being ordered in advance for a procedure?->Yes Expected date of procedure:->10/02/24 Has the patient been transfused in the past 3 months?->No Sully Archer NP LAB BLOOD BANK TEST ORDER TALYA Final Result [facility] Department [place] [address] documented in this encounter Visit Diagnoses Diagnosis Preoperative testing- Primary Unspecified pre-operative examination Preoperative testing Unspecified pre-operative examination 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 Discontinued Medications Medication Sig Discontinue Reason Start Date End Da te amoxicillin-clavulanat e (AUGMENTIN) 875-125 mg per tablet TK 1 T PO Q 12 H FOR 7 DAYS Therapy completed 09/13/2024 azithromycin (ZITHROMAX) 250 mg tablet TAKE 2 TABLETS (500 MG) BY ORAL ROUTE ONCE DAILY FOR 1 DAY THEN 1 TABLET (250 MG) BY ORAL ROUTE ONCE DAILY FOR 4 DAYS Therapy completed 09/13/2024 bethanechol (URECHOLINE) 25 mg tablet Take 1 tablet (25 mg total) by mouth 2 (two) times a day Therapy completed 09/13/2024 gabapentin (NEURONTIN) 100 mg capsule Take 2 capsules every day by oral route as directed for 30 days. Therapy completed 09/13/2024 hyoscyamine (LEVSIN) 0.[address] 1 tablet every 8 hours by sublingual route as needed for 90 days. Therapy completed 11/10/2023 09/13/2024 meclizine (ANTIVERT) 12.5 mg tablet Take 1 tablet every 6-8 hours by oral route as needed for 10 days. Therapy completed 09/13/2024 naloxone (NARCAN) 4 mg/actuation spray,non-aerosol CALL 911. SPR CONTENTS OF ONE SPRAYER (0.1ML) INTO ONE NOSTRIL. REPEAT IN 2-3 MIN IF SYMPTOMS OF OPIOID EMERGENCY PERSIST, ALTERNATE NOSTRILS Therapy completed 09/13/2024 omeprazole (PriLOSEC) 20 mg capsule Take 1 capsule (20 mg total) by mouth daily Therapy completed 09/13/2024 predniSONE (DELTASONE) 10 mg tablet Take 1 tablet every day by oral route as directed for 7 days. Therapy completed 09/13/2024 promethazine-codeine (PHENERGAN with CODEINE) 1.25-2 mg/mL syrup Take 5 mL EVERY 6 HOURS by oral route prn cough Therapy completed 09/13/2024 rivaroxaban (Xarelto) 15 mg tablet Take 1 tablet twice a day by oral route for 21 days. Therapy completed 09/13/2024 documented as of this encounter Care Teams Market Sales Manager Relationship Specialty Start Date End Date Sj Benson MD [address] [facility] [place] [address] PCP - General Family Medicine 07/05/24 documented as of this encounter
--- OUTSIDE RECORDS SUMMARY | 2024-11-14 16:24 | XMS_ITS | Encounter Summary ---
Author Organization [facility] Address [address] [facility] [address] [place] [address] Phone Care Team Providers Care Public Safety Police Name Role Phone Sj Benson MD Primary Care Provider [phone] Encounter Details Date Type Department Care Team (Late st Contact Info) Description 07/26/2024 Telephone [facility] Neurosurgery [address] [facility] Medical Office Building [address] [place] [address] James Robles MD [address] [place] [address] Social History Tobacco Use Types Packs/Day Years Used Date Smoking Tobacco: Never Smokeless Tobacco: Never AUDIT-C Answer Date Recorded Q1: How often do you have a drink containing alcohol? Never 07/26/2024 Q2: How many drinks containi ng alcohol do you have on a typical day when you are drinking? Patient does not drink Q3: How often do you have si x or more drinks on one occasion? 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 Gender Identity Not on file Sexual Orientation Not on file documented as of this encounter Miscellaneous Notes * Telephone Encounter - Gena Vasquez RN - 08/15/2024 9:40 AM CDT CPAP scheduled 09/13 * Telephone Encounter - Fely Marshall - 08/02/2024 2:18 PM CDT SURGERY SCHEDULERS CHECK LIST Surgery name: T3-T5 Posterior Spinal Fusion (PSF) w T3-T5 Laminectomy, Intradural arachnoid web resection Combo surgery: [] Yes [x]No Date of Surgery: 10/02/24 On MD Calendar: [x] Yes []No If no, reason why Pre-Op Testing scheduled: []MRI: []CT: []DEXA: [x]N/A Email sent for equipment Monitoring or Reps:[x]Yes []NO []N/A Date sent:08/02/24 CPAP scheduled: []Yes []NO []N/A Date: Time: [][facility] [][facility] [][facility] Post op appointment made: [x]Yes []NO []N/A Date/Time: 11/29/24 Pt notified of all appointment info: []Yes []NO [] Left message [x] My chart Surgical Clearance letter sent to specialist: []Yes []NO [x]N/A On [place] Spreadsheet: [x]Yes []NO * Telephone Encounter - Brianna Calhoun CMA - 08/01/2024 3:58 PM CDT Pt returning call, confirmed with pt Antonio was d/c 02/2022, pt confirmed no NSAIDS 7 days prior and 12 weeks post-surgery. * Telephone Encounter - Lara Salguero RN - 08/01/2024 3:03 PM CDT Procedure Date: TBD Location: [x][facility] [][facility] [x]CPAP []TPAP []IPAP Prep for case entered [x] Yes [] No Mupirocin sent [x] Yes [] No Surgical scrub sent [] Yes [x] No On MD calendar [] Yes [x] No OR arrival time given to pt [] Yes [x] No Pt notified of CPAP and imaging dates times [] Yes [x] No Imaging needed prior to surgery: Pre-op Testing required[x]N/A []MRI []CT []Dexa []AUDIOGRAM Post op appointment timeframe requirements 2 week[] 4 week [] 6 week [x] Other: Patient on anticoagulants []Yes []No []ASA []Prescribed anticoagulant LVM and mychart message to confirm meds (Antonio seen on med list) Aware to stop NSAIDs 7 days prior to sx and hold for 3 months postop Surgery Clearance needed: []NA or [] General(PCP) [] Cardiac [] Other TBD-LVM OR Consent/Surgery packet status: []In progress [x]Scanned by front maker Notes/Other: * Telephone Encounter - Abbie Selby CMA - 07/28/2024 3:39 PM CDT MA SURGERY SCHEDULING CHECK LIST Visit Type: [] TELEMED [x] IN CLINIC Nurse Education done in Clinic: [] YES [x] NO LOCATION: [x] [facility] Surgery Name: T3-T5 Posterior Spinal Fusion (PSF) w T3-T5 Laminectomy, Intradural arachnoid web resection Date Given: [] YES() [x] NO Consent signed: [x] By MD [x] By patient If no, reason why: Equipment sheet completed with cut to close: (5hrs) [x] Yes [] If no, reason why Equipment sheet scanned: [x] Yes Signed Consent scanned: [x] Yes Name of equipment Monitoring or Reps:[x]Yes []NO []N/A Pre-Op Testing needed: []MRI: [] Order entered []CT: [] Order entered []Dexascan [] Order entered []EMG [] Order entered []Pre op Angiogram [] Order entered []Intraop Angiogram [] Order entered []Audiogram [] Order entered ([id number] [facility] 11th floor [address]) [x]N/A Post op XR orders entered: []Yes [x]N/A Surgery packet/ guidelines given to patient [x]Yes []No If no, reason why? Pharm?in chart NSAIDS [x]YES []NO Aleve DIABTIC MEDICATION []YES [x]NO * Telephone Encounter - Abbie Selby CMA - 07/26/2024 8:26 AM CDT Per the patient's most recent office visit, the provider's plan is as follows... Surgery: T3-T5 Posterior Spinal Fusion (PSF) w T3-T5 Laminectomy, Intradural arachnoid web resection,revision corduntethering documented in this encounter Plan of Treatment Not on file documented as of this encounter Visit Diagnoses Not on filedocumented in this encounter Care Teams Public Safety Police Relationship Specialty Start Date End Date Sj Benson MD [address] [place] [address] PCP - General Family Medicine 07/05/24 documented as of this encounter
--- OUTSIDE RECORDS SUMMARY | 2024-11-14 16:24 | XMS_ITS | Encounter Summary ---
Author Organization [facility] Healthcare Address [address] [place] [address] Care Team Providers Care Grinding Mill Operator Name Role Phone Sj Benson MD Primary Care Provider [phone] Reason for Visit * MRI/CAT/PET Scan (Routine) - Closed Specialty Diagnoses / Procedures Referred By Contac t Referred To Contact Procedures Neuro MR Outside Reference Neftaly Goetz, JOSE [address] [facility] [address] [place] [address] Phone: tel: fax: Referral ID Status Reason Start Date Expiration Date Visits Re quested Visits Authorized [id number] Closed 07/13/2024 08/12/2025 1 1 Encounter Details Date Type Department Care Team (Latest Contact Info) Description 07/13/2024 10:20 PM CDT - 07/13/2024 11:59 PM CDT Hospital Encounter [facility] [address] [place] [phone] Discharge Disposition: Discharge to home or self care Social History Tobacco Use Types Packs/Day Years Used Date Smoking Tobacco: Never Smokeless Tobacco: Never AUDIT-C Answer Date Recorded Q1: How often do you have a drink containing alcohol? Never 07/12/2024 Q2: How many drinks containi ng alcohol do you have on a typical day when you are drinking? Patient does not drink Q3: How often do you have si x or more drinks on one occasion? 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 Gender Identity Not on file Sexual Orientation Not on file documented as of this encounter Medications at Time of Discharge baclofen (LIORESAL) 10 mg tabletIndications :Muscle Spasticity of Spinal Origin Take 1 tablet (10 mg total) by mouth 2 (two) times a day 04/18/[address] (CYMBALTA) 30 mg capsuleIndication s:Neuropathic Pain Take 1 capsule (30 mg total) by mouth 2 (two) times a day 04/10/2024 finasteride (PROSCAR) 5 mg tabletIndications :benign prostatic hyperplasia with lower urinary tract sx Take 1 tablet (5 mg total) by mouth every morning 05/23/2024 Saccharomyces boulardii (Florastor) 250 mg capsuleIndication s:gut health Take 1 capsule (250 mg total) by mouth every morning tamsulosin (FLOMAX) 0.4 mg extended release capsuleIndication s:benign prostatic hyperplasia with lower urinary tract sx Take 1 capsule (0.4 mg total) by mouth nightly 04/10/2024 amoxicillin-clavu lanate (AUGMENTIN) 875-125 mg per tablet TK 1 T PO Q 12 H FOR 7 DAYS 4 azithromycin (ZITHROMAX) 250 mg tablet TAKE 2 TABLETS (500 MG) BY ORAL ROUTE ONCE DAILY FOR 1 DAY THEN 1 TABLET (250 MG) BY ORAL ROUTE ONCE DAILY FOR 4 DAYS 4 bethanechol (URECHOLINE) 25 mg tablet Take 1 tablet (25 mg total) by mouth 2 (two) times a day 4 gabapentin (NEURONTIN) 100 mg capsule Take 2 capsules every day by oral route as directed for 30 days. 4 hyoscyamine (LEVSIN) 0.[address] 1 tablet every 8 hours by sublingual route as needed for 90 days. 11/10/2023 4 meclizine (ANTIVERT) 12.5 mg tablet Take 1 tablet every 6-8 hours by oral route as needed for 10 days. 4 naloxone (NARCAN) 4 mg/actuation spray,non-aerosol CALL 911. SPR CONTENTS OF ONE SPRAYER (0.1ML) INTO ONE NOSTRIL. REPEAT IN 2-3 MIN IF SYMPTOMS OF OPIOID EMERGENCY PERSIST, ALTERNATE NOSTRILS 4 omeprazole (PriLOSEC) 20 mg capsule Take 1 capsule (20 mg total) by mouth daily 4 predniSONE (DELTASONE) 10 mg tablet Take 1 tablet every day by oral route as directed for 7 days. 4 promethazine-code ine (PHENERGAN with CODEINE) 1.25-2 mg/mL syrup Take 5 mL EVERY 6 HOURS by oral route prn cough 4 rivaroxaban (Xarelto) 15 mg tablet Take 1 tablet twice a day by oral route for 21 days. 4 traMADoL (ULTRAM) 50 mg tablet Take 1 tablet (50 mg total) by mouth every 8 (eight) hours as needed for pain 4 documented as of this encounter Discharge Disposition Disposition Code Departure Means Destination Discharge to home or self care documented in this encounter Plan of Treatment Not on file documented as of this encounter Procedures Procedure Name Priority Date/Time Associated Diagnosis Comments NEURO MR OUTSIDE REFERENCE Routine 07/13/2024 10:20 PM CDT documented in this encounter Results * Neuro MR Outside Reference (07/13/2024 10:20 PM CDT) Impressions [facility] - 07/13/2024 10:20 PM CDT These images are for Reference purposes only and have not been reviewed by [facility]. ??There will be no report generated by a [facility] Radiologist. Narrative [facility] - 07/13/2024 10:20 PM CDT EXAMINATION: ??Images For Reference Purposes Only us Neftaly Goetz NP IMG MRI PROCEDURES Final Result [facility] documented in this encounter Visit Diagnoses Not on filedocumented in this encounter Care Teams Grinding Mill Operator Relationship Specialty Start Date End Date Sj Benson MD [address] [place] [address] [place] [address] PCP - General Family Medicine 07/05/24 documented as of this encounter
--- OUTSIDE RECORDS SUMMARY | 2024-11-14 16:24 | XMS_ITS | Encounter Summary ---
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 Gender Identity Not on file Sexual Orientation Not on file documented as of this encounter Miscellaneous Notes * Telephone Encounter - Yane iKm RN - 07/17/2024 8:48 AM CDT Preprocedure Phone Call Procedure Time Verified: Yes Arrival Time Verified: Yes Procedure Location Verified: Yes Medical History Reviewed: Yes NPO Status Reinforced: Yes Ride and Caregiver Arranged: Yes Patient Knows to Bring Current Medications: Yes Patient Knows to Bring CPAP: No Is Patient on Home Ventilator?: No Is Patient on Blood Thinners?: No documented in this encounter Plan of Treatment Not on file documented as of this encounter Visit Diagnoses Not on filedocumented in this encounter Care Teams City Comptroller Relationship Specialty Start Date End Date Sj Benson MD [address] [place] [address] PCP - General Family Medicine 07/05/24 documented as of this encounter
--- OUTSIDE RECORDS SUMMARY | 2024-11-14 16:24 | XMS_ITS | Encounter Summary ---
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 * Telephone Encounter - Abbie Selby CMA - 07/11/2024 2:15 PM CDT Spoke with [facility] to f/u on imaging as we have not received MRI C and T spine. They are to push MRI T and C spine via powershare. * Telephone Encounter - Yasmani Naqvi - 07/11/2024 11:22 AM CDT June from Dr Pack office Wanted to fax through a report Provided main fax number * Telephone Encounter - Christen Calvin - 07/10/2024 5:39 PM CDT Radiology Report scanned into chart * Telephone Encounter - Abbie Selby CMA - 07/10/2024 3:37 PM CDT Spoke with [facility] to request MRI Cervical imaging. They are to push imaging via powershare. Recall set to f/u on imaging prior to appt. * Telephone Encounter - Simona Monte - 07/10/2024 11:11 AM CDT BL - R/s for Neftaly HALE - 07/19/2024 to 07/12/2024 - 1st ATTEMPT - spoke w/Pt. Reason for visit: New Pt Appt Date: 07/12/2024 Time: 1.15pm Location: [facility] ([facility]) Provider [facility] [place] [facility] - Neftaly Hale Routed: Directly to [facility] [place] [facility] Send Letter to PCP for Insurance Auth: No MSPQ left as incomplete. Pt unavailable for this. * Telephone Encounter - Chetan Jones - 07/10/2024 11:08 AM CDT PT POC scanned into chart - signature required. * Telephone Encounter - Davina Kern - 07/10/2024 7:35 AM CDT Discharge report scanned into chart * Telephone Encounter - Christen Calvin - 07/09/2024 1:59 PM CDT Radiology Report scanned into chart, facility will send images. * Telephone Encounter - Christen Calvin - 07/08/2024 10:32 AM CDT PT POC scanned into chart, requires signature. * Telephone Encounter - Juanpablo Thorne - 07/05/2024 10:28 AM CDT Department of Neurological Surgery at [facility] Spine Intake 07/05/24 Ryan F Thus 1950 [id number] Unknown, Notinfile Are you a New or Returning Pt? new Referring physician Other: Riley Huddleston MD Referred to: Dr. Robles Second Opinion: Yes Insurance: Commercial Insurance: Name of Plan Medicare Primary / blue cross blue shield seconary) Send Letter to PCP for Insurance Auth: Yes Litigation: No Has the patient had spinal surgery within the last year? No Diagnosis: Thoracic Myeloptathy Location (Spinal Area): Thoracic and Lumbar Imaging Done within Last Year: Yes Location: [facility] PH FAX [phone] Records Requested: Yes . HT: 6ft WT: 214 BMI: 29.0 Weakness: Yes Can't walk very far Numbness: Yes Left leg and feet Spinal Pain: lower back left knee Loss of bowel or bladder control: No Reports looseness Duration of symptoms: 18 years Spine surgery - within last 10 years: Yes Location: [facility] PH FAX [phone] Records Requested: Yes Physical therapy within last year Yes Location: [facility] PH FAX [phone] Records Requested: Yes Pain Management (Injections) within last year No Are you a current smoker on nicotine: No Reason for visit: New Pt Appt Date: 07/19/24 Time: 11:45am Location: [facility] ([facility]) Provider JOSE - Neftaly Hale Routed: Directly to [facility] [place] [facility] Review: Remind pt to arrive 45 min early for xrays: Yes Patient Informed about possible wait time to be seen by Providers: Yes ???Please expect your total visit time to be approximately 2-4 hours for a new patient visit or surgical consultation. This time will involve x-ray imaging, processing, interpretation, evaluation by Providers team, and consultation with Doctor. Please expect that during this time you may be waitingin between x-rays, evaluation by Provider's team, and consultation with Doctor. This wait time is necessary for a thorough review, analysis, and interpretation of your clinical history, radiological studies, current condition, and formulation of a clinical plan. We ask for your patience and know that while you are waiting, your care is being actively planned?? * Telephone Encounter - Chetan Jones - 07/05/2024 8:08 AM CDT Referral to Neurosurgery scanned into chart. Dx: Thoracic Myeloptathy Order transcribed. documented in this encounter Plan of Treatment Not on file documented as of this encounter Visit Diagnoses Not on filedocumented in this encounter Care Teams Child Care Education Coordinator Relationship Specialty Start Date End Date Sj Benson MD [address] [facility] DEPT [place] [address] PCP - General Family Medicine 07/05/24 documented as of this encounter
--- OUTSIDE RECORDS SUMMARY | 2024-11-14 16:24 | XMS_ITS | Encounter Summary ---
Author Organization [facility] Address [address] [facility] [address] [place] [address] Phone Care Team Providers Care Certified Welding Inspector Name Role Phone Sj Benson MD Primary Care Provider [phone] Encounter Details Date Type Department Care Team (Late st Contact Info) Description 08/16/2024 Telephone [facility] Neurosurgery [address] [facility] Medical Office Building [address] [place] [address] James Robles MD [address] [place] [address] Social History Tobacco Use Types [...] on file 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 Follow-up: see message above documented in this encounter Plan of Treatment Not on file documented as of this encounter Visit Diagnoses Not on filedocumented in this encounter Care Teams Certified Welding Inspector Relationship Specialty Start Date End Date Sj Benson MD [address] [place] [address] PCP - General Family Medicine 07/05/24 documented as of this encounter
--- OUTSIDE RECORDS SUMMARY | 2024-11-14 16:24 | XMS_ITS | Encounter Summary ---
Author Organization [facility] Care Team Providers Care Project Director Name Role Phone Unavailable Primary Care Provider Unavailabl e Encounter Details Date Type Department Care Team (Late st Contact Info) Description 06/04/2008 5:50 AM CDT - 06/05/2008 11:26 AM CDT Hospital Encounter 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
--- OUTSIDE RECORDS SUMMARY | 2024-11-14 16:24 | XMS_ITS | Encounter Summary ---
Author Organization [facility] Healthcare Address [address] [place] [address] Care Team Providers Care Skin Toggler Name Role Phone Sj Benson MD Primary Care Provider [phone] Reason for Visit * MRI/CAT/PET Scan (Routine) - Closed Specialty Diagnoses / Procedures Referred By Contac t Referred To Contact Procedures Neuro MR Outside Reference Neftaly Goetz, JOSE [address] [facility] [address] [place] [address] Phone: tel: fax: Referral ID Status Reason Start Date Expiration Date Visits Re quested Visits Authorized [id number] Closed 07/13/2024 08/12/2025 1 1 Encounter Details Date Type Department Care Team (Latest Contact Info) Description 07/13/2024 10:19 PM CDT - 07/13/2024 11:59 PM CDT Hospital Encounter [facility]) [address] [place] [phone] Discharge Disposition: Discharge to home or self [...] on file 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 ??There will be no report generated by a [facility] Radiologist. Narrative [facility] - 07/13/2024 10:19 PM CDT EXAMINATION: ??Images For Reference Purposes Only us Neftaly Goetz NP IMG MRI PROCEDURES Final Result [facility] documented in this encounter Visit Diagnoses Not on filedocumented in this encounter Care Teams Skin Toggler Relationship Specialty Start Date End Date Sj Benson MD [address] [place] [address] [place] [address] PCP - General Family Medicine 07/05/24 documented as of this encounter
--- OUTSIDE RECORDS SUMMARY | 2024-11-14 16:24 | XMS_ITS | Encounter Summary ---
Author Organization [facility] Address [address] [facility] [address] [place] [address] Phone Care Team Providers Care Education Associate Name Role Phone Sj Benson MD Primary Care Provider [phone] Reason for Referral * MRI/CAT/PET Scan (Routine) - Closed Specialty Diagnoses / Procedures Referred By Hector sosa Referred To Contact Radiology Diagnoses Thoracic myelopathy Procedures CT Post Myelogram 3 Levels James Robles MD [address] [place] [address] Phone: tel: fax: [address] [address] Referral ID Status Reason Start Date Expiration Date Visits Re quested Visits Authorized [id number] Closed 07/14/2024 08/13/2025 1 1 Encounter Details Date Type Department Care Team (Late st Contact Info) Description 07/12/2024 Telephone [facility] Neurosurgery [address] [place] [address] Medical Office Building [address] [place] [address] James Robles MD [address] [place] [address] Social History Tobacco Use Types Packs/Day Years [...] on file 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 Robles Routed: MARIA ISABEL Robles Send Letter to PCP for Insurance Auth: Yes * Telephone Encounter - Alecia Zamora - 07/17/2024 7:35 AM CDT Referral to neurosurgery notes/reports scanned into chart * Telephone Encounter - Maria Alejandra Hunter CMA - 07/14/2024 11:46 AM CDT Appt with CM scheduled for 08/09 at 8:[address] myelogram on 08/02 at 9:[address] myelogram was sent via [employer]. Spoke with patient on the phone, he is agreeable to appt date/time/locationand will contact the office if needing to r/s or any questions/concerns. * Addendum Note - Maria Alejandra Hunter CMA - 07/14/2024 11:35 AM CDTAddended by: MARIA ALEJANDRA HUNTER on: 07/14/2024 11:35 AM Modules accepted: Orders * Telephone Encounter - Alecia Zamora - 07/14/2024 9:41 AM CDT EMG results scanned into chart * Telephone Encounter - Maria Alejandra Hunter CMA - 07/12/2024 1:47 PM CDT Per the patient's most recent office visit, the provider's plan is as follows... Follow-up: After imaging with the MD In Person ... with CT Myelogram at next appointment. Imaging/Diagnostics: CT myelogram Indication - Surgical Planning Protocol - General/Normal Location - [facility] Expected Time Frame - Next available Notes: Obtain EMG results from [facility] Pt would like to be notified of their scheduled appointments via Phone call documented in this encounter Plan of Treatment Not on file documented as of this encounter Results * CT Post Myelogram 3 Levels (07/21/2024 9:11 AM CDT) Anatomical Region Laterality Modality Spine N/A Computed Tomogra phy 07/21/2024 2:33 PM CDT Impressions 07/21/2024 4:19 PM CDT 1. 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 ??The cord is expanded caudal to T4 compatible with the myelopathy seen on the recent MRI. 2. Moderate degenerative changes of the cervical spine as described in detail above. 3. Moderate degenerative changes of the lumbar spine as described in detail above. Dictated by: Gabriel Tovar M.D. The radiology attending physician has personally reviewed this study, and had reviewed and/or edited this written report and agrees with it. Electronically signed by: Ortega Juarez M.D, PHD Narrative 07/21/2024 4:19 PM CDT EXAMINATION: 1. Cervical myelogram and post myelogram CT of the cervical spine with intrathecal contrast 2. Thoracic myelogram and post myelogram CT of the thoracic spine with intrathecal contrast 3. Lumbar myelogram and post myelogram CT of the lumbar spine with intrathecal contrast HISTORY: Worsening thoracic myelopathy after thoracic decompression TECHNIQUE: The risks and benefits of myelography including but not limited to infection, bleeding, seizure, epidural hematoma, headache, nausea, vomiting, irritation or damage to nerves causing pain or permanent injury, confusion, hallucinations, and/or reaction to the contrast or local medication were discussed with the patient. The patient was given the opportunity to ask questions. The patient acknowledged understanding, gave verbal and written consent, and wished to proceed. A time-out was performed prior to the procedure. Attending physician: Dr. Ortega Juarez M.D, PHD was present for the entire procedure. The L4-L5 level was localized with fluoroscopy. The ribs were counted and this level confirmed. The skin overlying this level was sterilely prepped, draped, and infiltrated with 1% lidocaine for local anesthesia. Under intermittent fluoroscopic guidance, a 22 gauge 3.5 inch ??Quincke spinal needle was inserted into the thecal sac at this level. 8 ml of Omnipaque 300 was instilled. The contrast was pooled into the entire spine of the patient and fluoroscopic images were obtained. The patient was transferred to CT, and computed tomography of the entire spine was performed with intrathecal contrast according to myelographic protocol. The patient was then transferred to the nursing area for further observation and [address] Burroughs (vice president [employer]) was present and participated in the procedure. COMPARISON: 07/12/2024, 07/06/2024, 09/01/2023 FINDINGS: Fluoroscopy: The spine is in the normal anatomic alignment. The nerve root sheaths fill normally. No myelographic block of intrathecal contrast is present. No intradural or extradural masses are seen. Postmyelogram CT: CERVICAL SPINE: The alignment of the cervical spine is normal. The vertebral bodies are of normal height without compression fractures. Intervertebral disc spaces are normal. The craniocervical junction is normal. No soft tissue abnormality is identified. ??Vertebral osseous hemangioma present in C2. ??Patchy ossification of posterior longitudinal ligament at C3, C4, and C5. C2-C3: Small disc bulge. There is mild bilateral facet arthropathy. There is mild bilateral uncovertebral joint disease. There is mild bilateral neuroforaminal stenosis. There is no spinal canal stenosis. C3-C4: Disc osteophyte with central disc protrusion. There is mild bilateral facet arthropathy. There is severe right moderate left uncovertebral joint disease. There is severe right moderate left neuroforaminal stenosis. There is mild spinal canal stenosis. C4-C5: Central disc osteophyte complex. There is mild bilateral facet arthropathy. There is mild bilateral uncovertebral joint disease. There is moderate bilateral neuroforaminal stenosis. There is mild spinal canal stenosis. C5-C6: Disc osteophyte complex There is mild bilateral facet arthropathy. There is severe right moderate left uncovertebral joint disease. There is severe right moderate left neuroforaminal stenosis. There is no spinal canal stenosis. C6-C7: Disc osteophyte complex with left paracentral calcified disc protrusion. There is moderate bilateral facet arthropathy. There is severe left moderate right uncovertebral joint disease. There is severe left moderate right neuroforaminal stenosis. There is no spinal canal stenosis. C7-T1: The disk is normal in configuration. There is moderate left facet arthropathy. There is no uncovertebral joint disease. There is no neuroforaminal stenosis. There is mild spinal canal stenosis with a left facet osteophyte which effaces the left dorsal thecal sac with mild mass effect on the spinal cord unchanged from the recent MRI. THORACIC SPINE: Diffuse idiopathic skeletal hyperostosis within the thoracic spine. Alignment of the thoracic spine is normal. ??There is changes of posterior decompression at T4. ??At the decompression site there is myelomalacia of the spinal cord. ??The spinal cord is expanded below the level of T4. ??There is also a dorsal intradural lesion which opacifies with contrast on the myelogram measuring 1.1 x 0.5 x 3.7 cm seen series 15 image 65 and series 11 image 97. ??Findings are compatible with an arachnoid cyst. A thoracic spinal stimulator lead is centered at the T7 level. ??Mild multilevel degenerative disc disease without high-grade spinal canal or neural foraminal stenosis. Coronary artery calcifications. ??Renal cysts. LUMBAR SPINE: The alignment of the lumbar spine is normal. Vertebral bodies are of normal height without compression fractures. The conus medullaris terminates at the level of L1-L2 and is normal. Multilevel disc height loss. Renal cysts. L1-L2: The disc is normal in configuration. There is mild bilateral facet arthropathy. There is no neuroforaminal stenosis. There is no spinal canal stenosis. L2-L3: Diffuse disc bulge. There is mild bilateral facet arthropathy. There is no neuroforaminal stenosis. There is no spinal canal stenosis. L3-L4: Diffuse disc bulge with right subarticular disc protrusion which severely narrows the right lateral recess and possibly impinging the right L4 nerve root. There is mild bilateral facet arthropathy. There is moderate right mild left neuroforaminal stenosis. There is no spinal canal stenosis. L4-L5: Diffuse disc bulge with superimposed calcified central disc protrusion with bilateral lateral recess stenosis but no definite nerve root impingement. There is moderate bilateral facet arthropathy. There is severe right moderate left neuroforaminal stenosis. There is no spinal canal stenosis with bilateral laminectomy change. L5-S1: Diffuse disc bulge. There is severe right moderate left facet arthropathy. There is moderate right mild left neuroforaminal stenosis. There is no spinal canal stenosis. ?? Procedure Note Ortega Juarez MD PhD - 07/21/2024 EXAMINATION: 1. Cervical myelogram and post myelogram CT of the cervical spine with intrathecal contrast 2. Thoracic myelogram and post myelogram CT of the thoracic spine with intrathecal contrast 3. Lumbar myelogram and post myelogram CT of the lumbar spine with intrathecal contrast HISTORY: Worsening thoracic myelopathy after thoracic decompression TECHNIQUE: The risks and benefits of myelography including but not limited to infection, bleeding, seizure, epidural hematoma, headache, nausea, vomiting, irritation or damage to nerves causing pain or permanent injury, confusion, hallucinations, and/or reaction to the contrast or local medication were discussed with the patient. The patient was given the opportunity to ask questions. The patient acknowledged understanding, gave verbal and written consent, and wished to proceed. A time-out was performed prior to the procedure. Attending physician: Aly ReavesD, PHD was present for the entire procedure. The L4-L5 level was localized with fluoroscopy. The ribs were counted and this level confirmed. The skin overlying this level was sterilely prepped, draped, and infiltrated with 1% lidocaine for local anesthesia. Under intermittent fluoroscopic guidance, a 22 gauge 3.5 inch Quincke spinal needle was inserted into the thecal sac at this level. 8 ml of Omnipaque 300 was instilled. The contrast was pooled into the entire spine of the patient and fluoroscopic images were obtained. The patient was transferred to CT, and computed tomography of the entire spine was performed with intrathecal contrast according to myelographic protocol. The patient was then transferred to the nursing area for further observation and [address] Burroughs (vice president [employer]) was present and participated in the procedure. COMPARISON: 07/12/2024, 07/06/2024, 09/01/2023 FINDINGS: Fluoroscopy: The spine is in the normal anatomic alignment. The nerve root sheaths fill normally. No myelographic block of intrathecal contrast is present. No intradural or extradural masses are seen. Postmyelogram CT: CERVICAL SPINE: The alignment of the cervical spine is normal. The vertebral bodies are of normal height without compression fractures. Intervertebral disc spaces are normal. The craniocervical junction is normal. No soft tissue abnormality is identified. Vertebral osseous hemangioma present in C2. Patchy ossification of posterior longitudinal ligament at C3, C4, and C5. C2-C3: Small disc bulge. There is mild bilateral facet arthropathy. There is mild bilateral uncovertebral joint disease. There is mild bilateral neuroforaminal stenosis. There is no spinal canal stenosis. C3-C4: Disc osteophyte with central disc protrusion. There is mild bilateral facet arthropathy. There is severe right moderate left uncovertebral joint disease. There is severe right moderate left neuroforaminal stenosis. There is mild spinal canal stenosis. C4-C5: Central disc osteophyte complex. There is mild bilateral facet arthropathy. There is mild bilateral uncovertebral joint disease. There is moderate bilateral neuroforaminal stenosis. There is mild spinal canal stenosis. C5-C6: Disc osteophyte complex There is mild bilateral facet arthropathy. There is severe right moderate left uncovertebral joint disease. There is severe right moderate left neuroforaminal stenosis. There is no spinal canal stenosis. C6-C7: Disc osteophyte complex with left paracentral calcified disc protrusion. There is moderate bilateral facet arthropathy. There is severe left moderate right uncovertebral joint disease. There is severe left moderate right neuroforaminal stenosis. There is no spinal canal stenosis. C7-T1: The disk is normal in configuration. There is moderate left facet arthropathy. There is no uncovertebral joint disease. There is no neuroforaminal stenosis. There is mild spinal canal stenosis with a left facet osteophyte which effaces the left dorsal thecal sac with mild mass effect on the spinal cord unchanged from the recent MRI. THORACIC SPINE: Diffuse idiopathic skeletal hyperostosis within the thoracic spine. Alignment of the thoracic spine is normal. There is changes of posterior decompression at T4. At the decompression site there is myelomalacia of the spinal cord. The spinal cord is expanded below the level of T4. There is also a dorsal intradural lesion which opacifies with contrast on the myelogram measuring 1.1 x 0.5 x 3.7 cm seen series 15 image 65 and series 11 image 97. Findings are compatible with an arachnoid cyst. A thoracic spinal stimulator lead is centered at the T7 level. Mild multilevel degenerative disc disease without high-grade spinal canal or neural foraminal stenosis. Coronary artery calcifications. Renal cysts. LUMBAR SPINE: The alignment of the lumbar spine is normal. Vertebral bodies are of normal height without compression fractures. The conus medullaris terminates at the level of L1-L2 and is normal. Multilevel disc height loss. Renal cysts. L1-L2: The disc is normal in configuration. There is mild bilateral facet arthropathy. There is no neuroforaminal stenosis. There is no spinal canal stenosis. L2-L3: Diffuse disc bulge. There is mild bilateral facet arthropathy. There is no neuroforaminal stenosis. There is no spinal canal stenosis. L3-L4: Diffuse disc bulge with right subarticular disc protrusion which severely narrows the right lateral recess and possibly impinging the right L4 nerve root. There is mild bilateral facet arthropathy. There is moderate right mild left neuroforaminal stenosis. There is no spinal canal stenosis. L4-L5: Diffuse disc bulge with superimposed calcified central disc protrusion with bilateral lateral recess stenosis but no definite nerve root impingement. There is moderate bilateral facet arthropathy. There is severe right moderate left neuroforaminal stenosis. There is no spinal canal stenosis with bilateral laminectomy change. L5-S1: Diffuse disc bulge. There is severe right moderate left facet arthropathy. There is moderate right mild left neuroforaminal stenosis. There is no spinal canal stenosis. IMPRESSION: 1. 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 The cord is expanded caudal to T4 compatible with the myelopathy seen on the recent MRI. 2. Moderate degenerative changes of the cervical spine as described in detail above. 3. Moderate degenerative changes of the lumbar spine as described in detail above. Dictated by: Gabriel Tovar M.D. The radiology attending physician has personally reviewed this study, and had reviewed and/or edited this written report and agrees with it. Electronically signed by: Ortega Juarez M.D, PHD James Robles MD IM CT PROCEDURES Final Result * Myelogram 3 Level (07/21/2024 8:49 AM CDT) Anatomical Region Laterality Modality Spine Radio Fluoroscop y 07/21/2024 2:33 PM CDT Impressions 07/21/2024 4:19 PM CDT 1. 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 ??The cord is expanded caudal to T4 compatible with the myelopathy seen on the recent MRI. 2. Moderate degenerative changes of the cervical spine as described in detail above. 3. Moderate degenerative changes of the lumbar spine as described in detail above. Dictated by: Gabriel Tovar M.D. The radiology attending physician has personally reviewed this study, and had reviewed and/or edited this written report and agrees with it. Electronically signed by: Ortega Juarez M.D, PHD Narrative 07/21/2024 4:19 PM CDT EXAMINATION: 1. Cervical myelogram and post myelogram CT of the cervical spine with intrathecal contrast 2. Thoracic myelogram and post myelogram CT of the thoracic spine with intrathecal contrast 3. Lumbar myelogram and post myelogram CT of the lumbar spine with intrathecal contrast HISTORY: Worsening thoracic myelopathy after thoracic decompression TECHNIQUE: The risks and benefits of myelography including but not limited to infection, bleeding, seizure, epidural hematoma, headache, nausea, vomiting, irritation or damage to nerves causing pain or permanent injury, confusion, hallucinations, and/or reaction to the contrast or local medication were discussed with the patient. The patient was given the opportunity to ask questions. The patient acknowledged understanding, gave verbal and written consent, and wished to proceed. A time-out was performed prior to the procedure. Attending physician: Dr. Ortega Juarez M.D, PHD was present for the entire procedure. The L4-L5 level was localized with fluoroscopy. The ribs were counted and this level confirmed. The skin overlying this level was sterilely prepped, draped, and infiltrated with 1% lidocaine for local anesthesia. Under intermittent fluoroscopic guidance, a 22 gauge 3.5 inch ??Quincke spinal needle was inserted into the thecal sac at this level. 8 ml of Omnipaque 300 was instilled. The contrast was pooled into the entire spine of the patient and fluoroscopic images were obtained. The patient was transferred to CT, and computed tomography of the entire spine was performed with intrathecal contrast according to myelographic protocol. The patient was then transferred to the nursing area for further observation and [address] Burroughs (vice president [employer]) was present and participated in the procedure. COMPARISON: 07/12/2024, 07/06/2024, 09/01/2023 FINDINGS: Fluoroscopy: The spine is in the normal anatomic alignment. The nerve root sheaths fill normally. No myelographic block of intrathecal contrast is present. No intradural or extradural masses are seen. Postmyelogram CT: CERVICAL SPINE: The alignment of the cervical spine is normal. The vertebral bodies are of normal height without compression fractures. Intervertebral disc spaces are normal. The craniocervical junction is normal. No soft tissue abnormality is identified. ??Vertebral osseous hemangioma present in C2. ??Patchy ossification of posterior longitudinal ligament at C3, C4, and C5. C2-C3: Small disc bulge. There is mild bilateral facet arthropathy. There is mild bilateral uncovertebral joint disease. There is mild bilateral neuroforaminal stenosis. There is no spinal canal stenosis. C3-C4: Disc osteophyte with central disc protrusion. There is mild bilateral facet arthropathy. There is severe right moderate left uncovertebral joint disease. There is severe right moderate left neuroforaminal stenosis. There is mild spinal canal stenosis. C4-C5: Central disc osteophyte complex. There is mild bilateral facet arthropathy. There is mild bilateral uncovertebral joint disease. There is moderate bilateral neuroforaminal stenosis. There is mild spinal canal stenosis. C5-C6: Disc osteophyte complex There is mild bilateral facet arthropathy. There is severe right moderate left uncovertebral joint disease. There is severe right moderate left neuroforaminal stenosis. There is no spinal canal stenosis. C6-C7: Disc osteophyte complex with left paracentral calcified disc protrusion. There is moderate bilateral facet arthropathy. There is severe left moderate right uncovertebral joint disease. There is severe left moderate right neuroforaminal stenosis. There is no spinal canal stenosis. C7-T1: The disk is normal in configuration. There is moderate left facet arthropathy. There is no uncovertebral joint disease. There is no neuroforaminal stenosis. There is mild spinal canal stenosis with a left facet osteophyte which effaces the left dorsal thecal sac with mild mass effect on the spinal cord unchanged from the recent MRI. THORACIC SPINE: Diffuse idiopathic skeletal hyperostosis within the thoracic spine. Alignment of the thoracic spine is normal. ??There is changes of posterior decompression at T4. ??At the decompression site there is myelomalacia of the spinal cord. ??The spinal cord is expanded below the level of T4. ??There is also a dorsal intradural lesion which opacifies with contrast on the myelogram measuring 1.1 x 0.5 x 3.7 cm seen series 15 image 65 and series 11 image 97. ??Findings are compatible with an arachnoid cyst. A thoracic spinal stimulator lead is centered at the T7 level. ??Mild multilevel degenerative disc disease without high-grade spinal canal or neural foraminal stenosis. Coronary artery calcifications. ??Renal cysts. LUMBAR SPINE: The alignment of the lumbar spine is normal. Vertebral bodies are of normal height without compression fractures. The conus medullaris terminates at the level of L1-L2 and is normal. Multilevel disc height loss. Renal cysts. L1-L2: The disc is normal in configuration. There is mild bilateral facet arthropathy. There is no neuroforaminal stenosis. There is no spinal canal stenosis. L2-L3: Diffuse disc bulge. There is mild bilateral facet arthropathy. There is no neuroforaminal stenosis. There is no spinal canal stenosis. L3-L4: Diffuse disc bulge with right subarticular disc protrusion which severely narrows the right lateral recess and possibly impinging the right L4 nerve root. There is mild bilateral facet arthropathy. There is moderate right mild left neuroforaminal stenosis. There is no spinal canal stenosis. L4-L5: Diffuse disc bulge with superimposed calcified central disc protrusion with bilateral lateral recess stenosis but no definite nerve root impingement. There is moderate bilateral facet arthropathy. There is severe right moderate left neuroforaminal stenosis. There is no spinal canal stenosis with bilateral laminectomy change. L5-S1: Diffuse disc bulge. There is severe right moderate left facet arthropathy. There is moderate right mild left neuroforaminal stenosis. There is no spinal canal stenosis. ?? Procedure Note Ortega Juarez MD PhD - 07/21/2024 EXAMINATION: 1. Cervical myelogram and post myelogram CT of the cervical spine with intrathecal contrast 2. Thoracic myelogram and post myelogram CT of the thoracic spine with intrathecal contrast 3. Lumbar myelogram and post myelogram CT of the lumbar spine with intrathecal contrast HISTORY: Worsening thoracic myelopathy after thoracic decompression TECHNIQUE: The risks and benefits of myelography including but not limited to infection, bleeding, seizure, epidural hematoma, headache, nausea, vomiting, irritation or damage to nerves causing pain or permanent injury, confusion, hallucinations, and/or reaction to the contrast or local medication were discussed with the patient. The patient was given the opportunity to ask questions. The patient acknowledged understanding, gave verbal and written consent, and wished to proceed. A time-out was performed prior to the procedure. Attending physician: Dr. Ortega Juarez, MRosioD, PHD was present for the entire procedure. The L4-L5 level was localized with fluoroscopy. The ribs were counted and this level confirmed. The skin overlying this level was sterilely prepped, draped, and infiltrated with 1% lidocaine for local anesthesia. Under intermittent fluoroscopic guidance, a 22 gauge 3.5 inch Quincke spinal needle was inserted into the thecal sac at this level. 8 ml of Omnipaque 300 was instilled. The contrast was pooled into the entire spine of the patient and fluoroscopic images were obtained. The patient was transferred to CT, and computed tomography of the entire spine was performed with intrathecal contrast according to myelographic protocol. The patient was then transferred to the nursing area for further observation and [address] Burroughs (vice president mission integration) was present and participated in the procedure. COMPARISON: 07/12/2024, 07/06/2024, 09/01/2023 FINDINGS: Fluoroscopy: The spine is in the normal anatomic alignment. The nerve root sheaths fill normally. No myelographic block of intrathecal contrast is present. No intradural or extradural masses are seen. Postmyelogram CT: CERVICAL SPINE: The alignment of the cervical spine is normal. The vertebral bodies are of normal height without compression fractures. Intervertebral disc spaces are normal. The craniocervical junction is normal. No soft tissue abnormality is identified. Vertebral osseous hemangioma present in C2. Patchy ossification of posterior longitudinal ligament at C3, C4, and C5. C2-C3: Small disc bulge. There is mild bilateral facet arthropathy. There is mild bilateral uncovertebral joint disease. There is mild bilateral neuroforaminal stenosis. There is no spinal canal stenosis. C3-C4: Disc osteophyte with central disc protrusion. There is mild bilateral facet arthropathy. There is severe right moderate left uncovertebral joint disease. There is severe right moderate left neuroforaminal stenosis. There is mild spinal canal stenosis. C4-C5: Central disc osteophyte complex. There is mild bilateral facet arthropathy. There is mild bilateral uncovertebral joint disease. There is moderate bilateral neuroforaminal stenosis. There is mild spinal canal stenosis. C5-C6: Disc osteophyte complex There is mild bilateral facet arthropathy. There is severe right moderate left uncovertebral joint disease. There is severe right moderate left neuroforaminal stenosis. There is no spinal canal stenosis. C6-C7: Disc osteophyte complex with left paracentral calcified disc protrusion. There is moderate bilateral facet arthropathy. There is severe left moderate right uncovertebral joint disease. There is severe left moderate right neuroforaminal stenosis. There is no spinal canal stenosis. C7-T1: The disk is normal in configuration. There is moderate left facet arthropathy. There is no uncovertebral joint disease. There is no neuroforaminal stenosis. There is mild spinal canal stenosis with a left facet osteophyte which effaces the left dorsal thecal sac with mild mass effect on the spinal cord unchanged from the recent MRI. THORACIC SPINE: Diffuse idiopathic skeletal hyperostosis within the thoracic spine. Alignment of the thoracic spine is normal. There is changes of posterior decompression at T4. At the decompression site there is myelomalacia of the spinal cord. The spinal cord is expanded below the level of T4. There is also a dorsal intradural lesion which opacifies with contrast on the myelogram measuring 1.1 x 0.5 x 3.7 cm seen series 15 image 65 and series 11 image 97. Findings are compatible with an arachnoid cyst. A thoracic spinal stimulator lead is centered at the T7 level. Mild multilevel degenerative disc disease without high-grade spinal canal or neural foraminal stenosis. Coronary artery calcifications. Renal cysts. LUMBAR SPINE: The alignment of the lumbar spine is normal. Vertebral bodies are of normal height without compression fractures. The conus medullaris terminates at the level of L1-L2 and is normal. Multilevel disc height loss. Renal cysts. L1-L2: The disc is normal in configuration. There is mild bilateral facet arthropathy. There is no neuroforaminal stenosis. There is no spinal canal stenosis. L2-L3: Diffuse disc bulge. There is mild bilateral facet arthropathy. There is no neuroforaminal stenosis. There is no spinal canal stenosis. L3-L4: Diffuse disc bulge with right subarticular disc protrusion which severely narrows the right lateral recess and possibly impinging the right L4 nerve root. There is mild bilateral facet arthropathy. There is moderate right mild left neuroforaminal stenosis. There is no spinal canal stenosis. L4-L5: Diffuse disc bulge with superimposed calcified central disc protrusion with bilateral lateral recess stenosis but no definite nerve root impingement. There is moderate bilateral facet arthropathy. There is severe right moderate left neuroforaminal stenosis. There is no spinal canal stenosis with bilateral laminectomy change. L5-S1: Diffuse disc bulge. There is severe right moderate left facet arthropathy. There is moderate right mild left neuroforaminal stenosis. There is no spinal canal stenosis. IMPRESSION: 1. 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 The cord is expanded caudal to T4 compatible with the myelopathy seen on the recent MRI. 2. Moderate degenerative changes of the cervical spine as described in detail above. 3. Moderate degenerative changes of the lumbar spine as described in detail above. Dictated by: Gabriel Tovar M.D. The radiology attending physician has personally reviewed this study, and had reviewed and/or edited this written report and agrees with it. 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
--- OUTSIDE RECORDS SUMMARY | 2024-11-14 16:24 | XMS_ITS | Encounter Summary ---
Author Organization [facility] Facility Care Team Providers Care Wide Area Network Administrator Name Role Phone Unavailable Primary Care Provider Unavailabl e Encounter Details Date Type Department Care Team (Late st Contact Info) Description 05/10/2008 9:23 AM CDT - 05/10/2008 4:00 PM CDT Hospital Encounter [facility] Hanna Nicole MD [address] [place] [address] [address] [place] [id number] Social History Tobacco Use Types Packs/Day Years Used Date Smoking Tobacco: Never Assessed Sex and Gender Information Value Date Recorded Sex Assigned at Not on file 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
--- OUTSIDE RECORDS SUMMARY | 2024-11-14 16:24 | XMS_ITS | Encounter Summary ---
Author Organization [facility] Healthcare Address [address] [place] [address] Care Team Providers Care Ict Sales Representative Name Role Phone Sj Benson MD Primary Care Provider [phone] Reason for Referral * Diagnostic Imaging (Routine) - Closed Specialty Diagnoses / Procedures Referred By Contac t Referred To Contact Diagnoses Low back pain, non-specific Procedures XR Scoliosis 6 or More Views Neftaly Goetz NP [address] [place] [address] Phone: tel: fax: [place] [address] [place] [address] Referral ID Status Reason Start Date Expiration Date Visits Re quested Visits Authorized [id number] Closed 07/10/2024 08/09/2025 1 1 Reason for Visit * Diagnostic Imaging (Routine) - Closed Specialty Diagnoses / Procedures Referred By Contac t Referred To Contact Diagnoses Low back pain, non-specific Procedures XR Scoliosis 6 or More Views Neftaly Goetz NP [address] [place] [address] Phone: tel: fax: [place] [address] [place] [address] Referral ID Status Reason Start Date Expiration Date Visits Re quested Visits Authorized [id number] Closed 07/10/2024 08/09/2025 1 1 Encounter Details Date Type Department Care Team (Latest Contact Info) Description 07/12/2024 12:25 PM CDT - 07/12/2024 11:59 PM CDT Hospital Encounter [id number] [address] [facility] [address] [place] [address] Low back pain, non-specific Discharge Disposition: Discharge to home or self [...] on file 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[employer] Gender Identity Not on file Sexual Orientation [...] PO Q 12 H FOR 7 DAYS 10/23/202 4 azithromycin (ZITHROMAX) 250 mg tablet TAKE [...] Name Priority Date/Time Associated Diagnosis Comments XR SCOLIOSIS 6 OR MORE VIEWS Schedule Routine, Read Routine (OP Routine) 07/12/2024 1:11 PM CDT Low back pain, non-specific documented in this encounter Results * XR Scoliosis 6 [...] signed by: Aly Snyder MD Neftaly Goetz TELEVISION ANNOUNCER IMG XR PROCEDURES Final Result documented in this encounter Visit Diagnoses Diagnosis Low back pain, non-specific documented in this encounter Care Teams Ict Sales Representative Relationship Specialty Start Date End Date Sj Benson MD [address] [facility] [place] [address] PCP - General Family Medicine 07/05/24 documented as of this encounter
--- OUTSIDE RECORDS SUMMARY | 2024-11-14 16:24 | XMS_ITS | Encounter Summary ---
Author Organization [facility] Healthcare Address [address] [place] [address] Care Team Providers Care Dehydrogenation Supervisor Name Role Phone Sj Benson MD Primary Care Provider Reason for Visit * MRI/CAT/PET Scan (Routine) - Closed Specialty Diagnoses / Procedures Referred By Contac t Referred To Contact Procedures Neuro MR Outside Reference James Robles MD [address] [facility] [address] [place] [address] Phone: tel: fax: Referral ID Status Reason Start Date Expiration Date Visits Re quested Visits Authorized [id number] Closed 07/11/2024 08/10/2025 1 1 Encounter Details Date Type Department Care Team (Latest Contact Info) Description 07/11/2024 6:23 PM CDT - 07/11/2024 11:59 PM CDT Hospital Encounter [facility] ([facility]) [address] [place] [id number] Discharge Disposition: Discharge to home or self [...] on file 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 11/10/2023 4 documented as of this encounter Discharge Disposition Disposition Code Departure Means Destination Discharge to home or self care documented in this encounter Plan of Treatment Not on file documented as of this encounter Procedures Procedure Name Priority Date/Time Associated Diagnosis Comments NEURO MR OUTSIDE REFERENCE Routine 07/11/2024 6:23 PM CDT documented in this encounter Results * Neuro MR Outside Reference (07/11/2024 6:23 PM CDT) Impressions [facility] - 07/11/2024 6:23 PM CDT These images are for Reference purposes only and have not been reviewed by [facility]. ??There will be no report generated by a [facility]. Narrative RAD_PACS_[facility] - 07/11/2024 6:23 PM CDT EXAMINATION: ??Images For Reference Purposes Only us James Robles MD IMG MRI PROCEDURES Final Result RAD_PACS[facility] documented in this encounter Visit Diagnoses Not on filedocumented in this encounter Care Teams Dehydrogenation Supervisor Relationship Specialty Start Date End Date Sj Benson MD [address] [facility] [place] [address] PCP - General Family Medicine 07/05/24 documented as of this encounter
--- OUTSIDE RECORDS SUMMARY | 2024-11-14 16:24 | XMS_ITS | Encounter Summary ---
Author Organization 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 Gender Identity Not on file Sexual Orientation Not on file documented as of this encounter Plan of Treatment Not on file documented as of this encounter Procedures Procedure Name Priority Date/Time Associated Diagnosis Comments TYPE AND SCREEN 14 DAY Routine 09/13/2024 11:37 AM CDT Preoperative testing EGFR Routine 09/13/2024 11:37 AM CDT Thoracic myelopathy DIFFERENTIAL AUTO Routine 09/13/2024 11: 37 AM CDT Thoracic myelopathy CPAP APTT ALGORITHM Routine 09/13/2024 1 1:37 [...] Routine 09/13/2024 11:37 AM CDT Thoracic myelopathy BASIC METABOLIC PANEL Routine 09/13/2024 11:37 AM CDT 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 Results * (ABNORMAL) eGFR (09/13/2024 11:37 AM CDT) [facility] Signature eGFR 46(L) >=60 mL/min/1. 73 m2 Comment: [...] ORDERABLES Final Resu lt Performing Organization Address [facility] Co de Phone Number [facility] Department [place] [address] * (ABNORMAL) Urinalysis, microscopic only (09/13/2024 11:37 AM CDT) WBC, ur 6-10(A) 0 - 5 /HPF RBC, ur 21-50(A) 0 - 2 /HPF [facility] Epithelial cells, squamous, ur 1-5 0 - 5 /HPF [facility] Mucous, ur Present(A) [facility] Culture Reflex Comment Reflex conditions for urine culture (WBC >10) not met. [facility] Urine, clean voided 09/13/2024 11:37 AM CDT 09/13/2024 1:37 PM CDT James Robles MD LAB URINE ORDERABLES Final Resu lt Performing Organization Address [facility] Co de Phone Number [facility] Department [place] [address] * (ABNORMAL) Differential, auto (09/13/2024 11:37 AM CDT) Neutrophil abs 6.9(H) 1.5 - 6.5 K/cumm Imm gran abs 0.1 0.0 - 0.1 K/cumm [facility] Lymphocyte abs 2.2 0.8 - 3.3 K/cumm [facility] Monocyte abs 1.2(H) 0.2 - 0.8 K/cumm [facility] Eosinophil abs 0.1 0.0 - 0.5 K/cumm [facility] Basophil abs 0.0 0.0 - 0.1 K/cumm [facility] Neutrophil pct 66.1 % [facility] Comment: Interpretive Data Percent cell count reference ranges are not reported, since discordance with absolute values may lead to misinterpretation of CBC data. Current Interpretive Data was last revised on 2018. Imm gran pct 0.5 % [facility] Comment: Interpretive Data Percent cell count reference ranges are not reported, since discordance with absolute values may lead to misinterpretation of CBC data. Current Interpretive Data was last revised on 2018. Lymphocyte pct 20.7 % [facility] Comment: Interpretive Data Percent cell count reference ranges are not reported, since discordance with absolute values may lead to misinterpretation of CBC data. Current Interpretive Data was last revised on 2018. Monocyte pct 11.8 % [facility] Comment: Interpretive Data Percent cell count reference ranges are not reported, since discordance with absolute values may lead to misinterpretation of CBC data. Current Interpretive Data was last revised on 2018. Eosinophil pct 0.5 % [facility] Comment: Interpretive Data Percent cell count reference ranges are not reported, since discordance with absolute values may lead to misinterpretation of CBC data. Current Interpretive Data was last revised on 2018. Basophil pct 0.4 % [facility] Comment: Interpretive Data Percent cell count reference ranges are not reported, since discordance with absolute values may lead to misinterpretation of CBC data. Current Interpretive Data was last revised on 2018. Blood 09/13/2024 11:3 7 AM CDT 09/13/2024 1:36 PM CDT us James Robles MD LAB BLOOD ORDERABLES Final Resu lt [facility] Department [place] [address] * (ABNORMAL) Basic metabolic panel (09/13/2024 11:37 AM CDT) Sodium 144 135 - 145 mmol/L Potassium, pl 3.8 3.3 - 4.9 mmol/L [facility] Chloride 105 97 - 110 mmol/L [facility] CO2 25 22 - 32 mmol/L [facility] Anion gap 14 2 - 15 mmol/L [facility] BUN 16 6 - 25 mg/dL [facility] Creatinine 1.55(H) 0.80 - 1.30 mg/dL [facility] Glucose 67(L) 70 - 199 mg/dL [facility] Comment: Interpretive Data Fasting glucose >/= 126 [...] 2022. Calcium 9.9 8.5 - 10.3 mg/dL [facility] Blood 09/13/2024 11:3 7 AM CDT 09/13/2024 1:34 PM CDT James Robles MD LAB BLOOD ORDERABLES Final Resu lt [facility] Department [place] [address] * Vitamin D 25 hydroxy (09/13/2024 11:37 AM CDT) Vitamin D 25-OH 30 30 - 80 ng/mL Blood 09/13/2024 11:3 7 AM CDT 09/13/2024 1:34 PM CDT James Robles MD LAB BLOOD ORDERABLES Final Resu lt Performing Organization Address City/[facility]/ZIP Co de Phone Number [facility] [place] [address] * (ABNORMAL) CBC with auto differential (09/13/2024 11:37 AM CDT) WBC 10.4(H) 3.8 - 9.9 K/cumm Hgb 14.0 13.0 - 17.5 g/dL [facility] Hct 42.7 38.9 - 50.3 % [facility] Plt 254 150 - 400 K/cumm [facility] MPV 10.5 9.1 - 12.3 fL [facility] RBC 4.47 4.30 - 5.80 M/cumm [facility] MCV 95.5 81.3 - 96.4 fL [facility] MCH 31.3 27.1 - 33.3 pg [facility] MCHC 32.8 32.3 - 35.7 g/dL [facility] RDW CV 12.7 11.1 - 14.9 % [facility] RDW SD 44.9 35.7 - 48.1 fL [facility] NRBC abs 0.00 0.00 - 0.01 K/cumm [facility] Blood 09/13/2024 11:3 7 AM CDT 09/13/2024 1:36 PM CDT James Robles MD LAB BLOOD ORDERABLES Final Resu lt [facility] [place] [address] * Protime-INR (09/13/2024 11:37 AM CDT) PT 11.0 9.7 - 13.0 sec INR 1.02 0.90 - 1.20 [facility] Comment: Interpretive data Oral anticoagulant therapeutic ranges: Venous thromboembolism prophylaxis or treatment: 2.0-3.0 CARDIOLOGY Standard range: 2.0-3.0 High-intensity range: 2.5-3.5 Refer to indication-specific guidelines for appropriate target ranges for prosthetic heart valve replacement. Current interpretive data was last revised on 2019. Blood 09/13/2024 11:3 7 AM CDT 09/13/2024 1:35 PM CDT James Robles MD LAB BLOOD ORDERABLES Final Resu lt Performing Organization Address [facility] de Phone Number [facility] Department [place] [address] * aPTT (09/13/2024 11:37 AM CDT) aPTT [...] ORDERABLES Final Resu lt Performing Organization Address [facility] de Phone Number [facility] [place] [address] * (ABNORMAL) Urinalysis reflex to microscopic and culture Urine, clean voided (09/13/2024 11:37 AM CDT) Color, ur Straw Yellow Clarity, ur Clear Clear [facility] Specific gravity, ur 1.016 1.003 - 1.030 [facility] pH, urine 5.5 [facility] Comment: Interpretive Data ? Urine pH is affected by diet, medications, systemic acid-base disturbances, and renal tubular function. ??pH may affect urinary stone formation. ??For example, urine pH below 6.0 may help reduce the tendency for calcium phosphate stones and pH greater than 6.0 may reduce the tendency for uric acid stone formation. Source: [facility] Current Interpretive Data was last revised on 2017 Protein, ur ql Trace Negative [facility] Glucose, ur ql Negative Negative [facility] Ketones, ur Negative Negative [facility] Bilirubin, ur Negative Negative [facility] Blood, ur 1+(A) Negative [facility] Urobilinogen, ur <2.0 <2.0 mg/dL [facility] Nitrite, ur Negative Negative [facility] Leukocyte esterase, ur Negative Negative [facility] UA reflex comment Reflex to microscopic UA will be performed. [facility] Urine, clean voided 09/13/2024 11:37 AM CDT 09/13/2024 1:37 PM CDT us James Robles MD LAB MICROBIOLOGY - GENERAL [facility] JEFFERY Final Result Performing Organization Address City/[facility]/ZIP Co de Phone Number [facility] Department [place] [address] * TYPE AND SCREEN 14 DAY (09/13/2024 11:37 AM CDT) ABO Rh B Negative Ramu, indirect Negative [facility] Blood 09/13/2024 11:3 7 AM CDT 09/13/2024 1:50 PM CDT Narrative [facility] - 09/13/2024 3:22 PM CDT Has the patient had Daratumumab or Isatuximab in the past 6 months?->Unknown Is this test being ordered in advance for a procedure?->Yes Expected date of procedure:->10/02/24 Has the patient been transfused in the past 3 months?->No us Sully Archer NP LAB BLOOD BANK TEST ORDER TALYA Final Result Performing Organization Address City/[facility]/ZIP Co de Phone Number [facility] Department [place] [address] * CPAP aPTT algorithm (09/13/2024 11:37 AM CDT) aPTT 30 28 - 38 sec Comment: Interpretive Data Heparin therapeutic range: 66.0 - 100.0 seconds. Range based on correlation with therapeutic heparin activity range of 0.3 - 0.7 Units/mL. Current interpretive data was last revised on 2023. Blood 09/13/2024 11:3 7 AM CDT 09/13/2024 1:35 PM CDT us Sully Archer EXPERIMENTAL MECH[employer]IC [employer] LAB BLOOD ORDERABLES Cammy ramos Result [facility] Department [place] [address] documented in this encounter Visit Diagnoses Diagnosis Preoperative testing Unspecified pre-operative examination 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 Care Teams [employer] Targeting Supervisor Relationship Specialty Start Date End Date Sj Benson MD [address] [facility] [place] [address] PCP - General Family Medicine 07/05/24 documented as of this encounter
--- OUTSIDE RECORDS SUMMARY | 2024-11-14 16:24 | XMS_ITS | Encounter Summary ---
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
--- OUTSIDE RECORDS SUMMARY | 2024-11-14 16:24 | XMS_ITS | Encounter Summary ---
Author Organization [facility] Care Team Providers Care Simulation Software Engineer Name Role Phone Unavailable Primary Care Provider Unavailabl e Encounter Details Date Type Department Care Team (Late st Contact Info) Description 04/18/2008 - 04/18/2008 11:59 PM CDT Hospital Encounter [facility] Hanna Nicole MD [address] [place] [address] [address] [place] [address] Social History Tobacco Use Types Packs/Day Years Used Date Smoking Tobacco: Never Assessed Sex and Gender Information Value Date Recorded Sex Assigned at Not on file 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
--- OUTSIDE RECORDS SUMMARY | 2024-11-14 16:24 | XMS_ITS | Encounter Summary ---
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] Procedures MA ARTHRODESIS POSTERIOR/PSTLAT TQ 1NTRSPC THORACIC MA ROMERO EXC ISPI LES OTH/THN LUCIO IDRL THORACIC MA ARTHRODESIS PST/PSTLAT TQ 1NTRSPC EA ADDL NTRSPC MA POSTERIOR SEGMENTAL INSTRUMENTATION 3-6 VRT SEG MA AUTOGRAFT SPINE SURGERY LOCAL FROM SAME INCISION MA ALLOGRAFT FOR SPINE SURGERY ONLY MORSELIZED FUSION SPINAL - POSTERIOR LUMBAR/THORACIC WITH INSTRUMENTATION; T3-5 posterior spinal fusion with 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 LAMINECTOMY THORACIC DECOMPRESSION SPINAL CORD MONITORING Referral ID Status Reason Start Date Expiration Date Visits Re quested Visits Authorized [id number] 1 1 Encounter Details Date Type Department Care Team (Late st Contact Info) Description 10/02/2024 7:30 AM INSTRUCTOR OF NURSING - 10/02/2024 3:05 PM INSTRUCTOR OF NURSING Surgery [facility] Operating Room [address] [place] [address] James Robles MD [address] [place] [address] POSTERIOR LUMBAR/THORACIC WITH INSTRUMENTATION 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 Surgery Details Date/Time Status Location OR Service Patient Class Case Class Case Type Trauma Case? 10/02/2024 7:30 AM Posted [facility] OR POD 5 234 Neurosurgery Surgery Admit Elective Panel 1 Procedure LRB Anes Op Region Wound Class Comments POSTERIOR LUMBAR/THORACIC WITH INSTRUMENTATION 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 N/A General Spine Lumbar Class I - Clean LAMINECTOMY THORACIC DECOMPRESSION N/A General Spine Lumbar Class I - Clean SPINAL CORD MONITORING N/A Choice Cl ass II - Clean Contaminated Surgeon Surgeon Role Service Panel James Robles MD Primary Neurosurgery 1 Wild Perez MD Resident - Assisting Neurosurge ry 1 Meghan Major DO Fellow Neurosurgery 1 Case Notes [email or web address] Berger via email add Dr. Burnette- [facility] documented in this encounter Social History Tobacco [...] on file Legal Sex Male 12:23 PM INSTRUCTOR OF NURSING Gender Identity Not on file Sexual Orientation Not on file documented as of this encounter Last Filed Vital Signs Vital Sign Reading Time Taken Comments Blood Pressure 138/99 10/02/2024 7:10 AM INSTRUCTOR OF NURSING Pulse 57 10/02/2024 7:20 AM INSTRUCTOR OF NURSING Temperature 36 ??C (96.8 ??F) 10/02/2024 6:00 AM INSTRUCTOR OF NURSING Respiratory Rate 17 10/02/2024 7:20 AM INSTRUCTOR OF NURSING Oxygen Saturation 98% 10/02/2024 7:20 AM INSTRUCTOR OF NURSING Inhaled Oxygen Concentration - - Weight 98.9 kg (218 lb) 10/02/2024 6:03 AM INSTRUCTOR OF NURSING Height - - Body Mass Index 29.42 10/03/2024 2:04 PM INSTRUCTOR OF NURSING documented in this encounter Discharge Summaries * Osiris Guillen PIPE ORGAN BUILDER - 10/14/2024 11:16 AM CST Images from the original note were not included. Spine Inpatient Discharge Summary Admitting Provider: James Robles MD Discharge Provider: James Robles MD Primary Care Physician at Discharge: Sj Benson MD [phone] Admission Date: 10/02/2024 Discharge Date: 10/14/2024 Primary [...] overtop Brace: None needed Surgical drains: SHELLY dc'd 10/06 Central Line Removed: N/A Blood Transfusions: [...] NS 07/16/2025 10:00 AM Jarocho Looney MD [facility] Chem/LFT Lab History Latest Ref Rng & [...] says it's OK. -Do not do any door frame assembler machine that cause you to twist, push or [...] James Robles MD at 10/14/2024 1:14 PM INSTRUCTOR OF NURSING RUCTOR OF NURSING RUCTOR OF NURSING documented in this encounter Discharge Instructions * Discharge Instructions* Dc Ott JOSE - 10/09/2024 6:37 AM INSTRUCTOR OF NURSING Discharge Instructions Thoracic Laminectomy Your doctor has [...] blood pressure), call your family doctor or economic development coordinator. You will be given a prescription for [...] donot hear regarding an appointment, please call [phone] - Neurosurgery: You should follow up in Dr. Robles's clinic in 4-6 weeks with xrays of your back. If you do not have a follow-up appointment, call to schedule one. Please arrive 30 minutes prior to your scheduled appointment. Phone numbers Appointment Scheduling: Doctor???s Office: Dr. James Robles, After hours emergency: or RUCTOR OF NURSING RUCTOR OF NURSING RUCTOR OF NURSING RUCTOR OF NURSING RUCTOR OF NURSING * Attachments The following attachments cannot be sent through Care Everywhere. * Deep Vein Thrombosis (AfterCare(R) Instructions(ER/ED)) (Prydeinig) * Apixaban (By mouth) (Prydeinig) documented in this encounter Medications at Time [...] mouth 2 (two) times a day 10/14/2024 5 tamsulosin (FLOMAX) 0.4 mg extended release capsuleIndication [...] mouth 2 (two) times a day 10/14/2024 5 polyethylene glycol (MIRALAX) 17 gram packetIndications :constipation [...] as needed for pain 10/14/2024 4 documented in this encounter Discharge Disposition Disposition Code Departure Means Destination Comment s Discharge to an Rehab facility [facility] documented in this encounter Progress Notes * Marla Larson RN - 10/14/2024 9:42 AM CST 10/13/24 1440 Discharge Summary Discharge Disposition Acute Rehab Specify Facility [facility] Contact Number [phone] Morris Discharge Records Transfer Form Completed;Chart Copied Recommended Discharge Level of Care Acute Rehab Actual Discharge Level of Care Acute Rehab Does Actual Level of Care Match Care Team Recommendation? Yes Post Acute Care Plan Home Care Services N/A OP Services N/A DME N/A Post Acute Care Facility Yes Referral Status Accepted Accepted Post Acute Care Location and Contact [facility] Accepted Post Acute Care Discharge Additional Assistance Does the patient need discharge transport arranged? Yes Type of Transportation Ambulance/EMS Has discharge transport been arranged? Yes Details of Transportation [facility] [phone] trip # [phone] D/C Transport Anticipated Date 10/14/24 D/C Transport Anticipated Time 1300 Per medical team, patient is medically stable for discharge at this time. Patient has been acceptedto [facility]. CM spoke with the patient/family, admissions, medical [...] Patient/family informed patient may require ambulance transport. marketing systems manager informed patient/family that even if the patient's insurance benefit includes ambulance transport, it may not cover the full cost of the transportation. The patient may be responsible for any [id number] cost, includingmileage beyond the nearest appropriate facility. Patient/family voiced understanding. No further case management needs identified at this time RUCTOR OF NURSING * Bladimir Clark MD - 10/14/2024 7:17 [...] James Robles MD at 10/14/2024 1:14 PM INSTRUCTOR OF NURSING RUCTOR OF NURSING RUCTOR OF NURSING * Tiffanie Tirado, PT - 10/13/2024 3:09 [...] treatment team and contact the PT or QUALITY ASSURANCE CONSULTANT currently assigned to this patient. If a physical therapy clinician is not assigned to this patient, please call [phone]. 10/13/24 1509 PT Last Visit Session Type Treatment (co-treat [facility] OT 2/2 level of assist needed) PT [...] Type Ankle pumps;Hip flexion;Long arc quads Reps/Sets 10/1 Seated-Motion AROM;AAROM Seated-Exercise Comments AROM L LE, [...] 2 reps with WW, 1 reps with COMMUNITY LIFE DIRECTOR Transfers 2 Transfer From 2 Bed Transfer [...] assist: 10/07/24 10/14/24 -- Goal Details: supervision RUCTOR OF NURSING * Harley Allen, OT - 10/13/2024 2:58 [...] not assigned to this patient, please call [phone]. 10/13/24 7182 General Session Type Treatment (Co-tx with PT) [...] tasks with mod A 10/04/24 10/26/24 -- RUCTOR OF NURSING * Pavel Sheets MD - 10/13/2024 6:36 [...] - Heparin gtt (goal 46-70) Dispo rehab ([facility]) DVT prophylaxis: lovenox Responsible team (call resident in bold with questions) Kortney Dean Note created by Pavel Sheets MD on 10/13/2024 at 6:36 AM. Cosigned by James Robles MD at 10/13/2024 8:44 AM INSTRUCTOR OF NURSING RUCTOR OF NURSING RUCTOR OF NURSING * Harley Allen OT - 10/12/2024 10:11 AM CST Occupational [...] not assigned to this patient, please call [phone]. 10/12/24 1011 General Session Type Treatment OT [...] tasks with mod A 10/04/24 10/26/24 -- RUCTOR OF NURSING * Tiffanie Tirado, PT - 10/11/2024 2:40 [...] treatment team and contact the PT or QUALITY ASSURANCE CONSULTANT currently assigned to this patient. If a physical therapy clinician is not assigned to this patient, please call [phone]. 10/11/24 1440 PT Last Visit Session Type [...] light within reach;Overbed table within reach (RN Jaimie notified) Assessment Prognosis Good Problem List Reduced [...] assist: 10/07/24 10/14/24 -- Goal Details: supervision RUCTOR OF NURSING * Wild Perez MD - 10/11/2024 6:09 [...] rectal Daily PRN 10 mg at 10/05/24 1337 Carrier Fluids for Secondary Infusion - 0.9% [...] Heparin gtt (goal 46-70) restarted Dispo rehab ([facility] referral sent 10/06) DVT prophylaxis: lovenox Responsible team (call resident in bold with questions) Chris Dean Note created by Wild Perez MD on 10/11/2024 at 6:08 PM. Cosigned by James Robles MD at 10/11/2024 7:37 PM INSTRUCTOR OF NURSING RUCTOR OF NURSING RUCTOR OF NURSING * Nohemi Zuleta, OT - 10/10/2024 1:16 [...] not assigned to this patient, please call [phone]. 10/10/24 1313 General Session Type Treatment OT Received On [...] tasks with mod A 10/04/24 10/11/24 -- RUCTOR OF NURSING * Wild Perez MD - 10/10/2024 8:01 [...] rectal Daily PRN 10 mg at 10/05/24 4345 Carrier Fluids for Secondary Infusion - 0.9% [...] Ifnot, plan for IVCf today. Dispo rehab ([facility] referral sent 10/06) Dispo rehab (needs referrals) DVT prophylaxis: lovenox Responsible team (call resident in bold with questions) Chris Dean Note created by Wild Perez MD on 10/10/2024 at 8:01 AM. Cosigned by James Robles MD at 10/10/2024 9:20 AM INSTRUCTOR OF NURSING RUCTOR OF NURSING RUCTOR OF NURSING * Keyla Connolly, RD - 10/09/2024 5:06 PM CST Nutrition Screen [...] 2011 TUMOR REMOVAL 2020 bladder tumor excision Anthropometrics [...] Adult Diet Regular Diet effective now Question: ([facility]) Diet type Answer: Regular 10/02/241932 Assessment / Impression: Pt reports eating well consuming 100% of meals, no N/V. Weight stable around 218#, no nutrition issues or concerns at this time. Pt with BM today. RD following. Keyla Connolly MS RD LD #[phone] RUCTOR OF NURSING * Rae Soni - 10/09/2024 11:08 AM [...] treatment team and contact the PT or QUALITY ASSURANCE CONSULTANT currently assigned to this patient. If a physical therapy clinician is not assigned to this patient, please call [phone]. 10/09/24 1108 PT Last Visit Session Type [...] Mike Estrada, PT at 10/09/2024 1:58 PM INSTRUCTOR OF NURSING RUCTOR OF NURSING RUCTOR OF NURSING * Wild Perez MD - 10/09/2024 7:40 [...] (LOVENOX) syringe 30 mg 30 mg subcutaneous Daily-2099 famotidine (PEPCID) tablet 20 mg 20 mg [...] (call resident in bold with questions) Chris Hwang Dean Note created by Wild Perez MD on 10/09/2024 at 7:40 PM. Cosigned by James Robles MD at 10/10/2024 9:20 AM INSTRUCTOR OF NURSING RUCTOR OF NURSING RUCTOR OF NURSING * Wild Perez MD - 10/08/2024 6:32 [...] (LOVENOX) syringe 30 mg 30 mg subcutaneous Daily-2099 famotidine (PEPCID) tablet 20 mg 20 mg [...] Miles Rodrigez MD at 10/08/2024 9:44 PM INSTRUCTOR OF NURSING RUCTOR OF NURSING RUCTOR OF NURSING * Nicko Zee - 10/07/2024 2:08 PM [...] treatment team and contact the PT or QUALITY ASSURANCE CONSULTANT currently assigned to this patient. If a physical therapy clinician is not assigned to this patient, please call [phone]. 10/07/24 1408 PT Last Visit Session Type [...] stated that he could not really feel. MARK Galarza present to assist with patient. Patient with [...] Roe Calles, PT at 10/07/2024 3:15 PM INSTRUCTOR OF NURSING RUCTOR OF NURSING RUCTOR OF NURSING * Osiris Guillen NP - 10/06/2024 2:41 PM CST Drain Removal Note [place] drain x1 removed without difficulty. Sutures removed, drain pulled, tubing intact upon removal. Sterile 2x2 dressing and tape placed over insertion site. No erythema noted. Patient tolerated procedure well. RN notified of removal. Plan: - Okay to remove dressing tomorrow and leave site open to air. Osiris Guillen NP RUCTOR OF NURSING * Tiffanie Tirado PT - 10/06/2024 1:34 PM CST Physical [...] treatment team and contact the PT or QUALITY ASSURANCE CONSULTANT currently assigned to this patient. If a physical therapy clinician is not assigned to this patient, please call [phone]. 10/06/24 1334 PT Last Visit Session Type [...] Radiating Towards back Pain Interventions RN Notified (Chamath notified) Cognition Arousal/Alertness Alert Orientation Oriented X4 [...] did not feel it when he went, PIPE ORGAN BUILDER and RN notified. Pt unable to move [...] light within reach;Overbed table within reach (MARK Babb notified) Assessment Problem List Reduced mobility;Gait deviations;Decreased [...] and from stand CGA 10/04/24 10/18/24 -- RUCTOR OF NURSING * Harley Allen, OT - 10/06/2024 1:18 PM CST Occupational Therapy Occupational Therapy Progress Note NOTE: This is a summary note of the ucellar components of the treatment session. For full [...] not assigned to this patient, please call [phone]. 10/06/24 1773 General Session Type Treatment OT Received On [...] tasks with mod A 10/04/24 10/11/24 -- RUCTOR OF NURSING * Wild Perez MD - 10/06/2024 7:50 [...] James Robles MD at 10/06/2024 1:09 PM INSTRUCTOR OF NURSING RUCTOR OF NURSING RUCTOR OF NURSING * Willy Nguyen MD - 10/05/2024 12:41 [...] acquired pneumonia - with leukocytosis --Cont CTX 2/5, Azithro -3/4 Access/Lines/Drains: --PIV x2 DVT ppx: SCDs, lovenox ppx Attending Documentation: I have seen and examined this patient on the day of service. I have reviewed and confirmed the history, physical exam, laboratory and radiographic data with the house staff as documented in the resident note/mid level provider. I have reviewed and discussed my treatment plan with the ICU team and other medical/strategic planning consultant staff. Critical Care Time: I have spent 30 minutes in full attendance with this critically ill patient making frequent reassessments and decisions regarding this patient's complex medical care. Critical care time was exclusive of separately billable procedures, treating other patients and teaching time. Willy Nguyen MD Stroke/Neurointensive Attending RUCTOR OF NURSING * Magali Ocampo, PT - 10/05/2024 9:34 [...] treatment team and contact the PT or QUALITY ASSURANCE CONSULTANT currently assigned to this patient. If a physical therapy clinician is not assigned to this patient, please call [phone]. 10/05/24 0934 PT Last Visit Session Type Treatment PT [...] 10/06/24 PT Time Calculation PT Start Time 0934 PT Stop Time 0957 PT Time Calculation (min) 23 min Multi-Disciplinary [...] and from stand CGA 10/04/24 10/18/24 -- RUCTOR OF NURSING * Florentin Dean MD - 10/05/2024 6:40 [...] mg intravenous Q24H FENG dexAMETHasone (DECADRON) tablet 6 mg 6 mg oral Q6H FENG docusate sodium (COLACE) capsule 100 [...] James Robles MD at 10/05/2024 8:15 AM INSTRUCTOR OF NURSING RUCTOR OF NURSING RUCTOR OF NURSING * Maria Isabel Unger PIPE ORGAN BUILDER - 10/05/2024 6:05 AM CST Neuro Critical [...] legs and feet bilaterally and arrives to [facility] for posterior lumbar-thoracic spinal fusion with [...] 235 mL LABS Recent Labs Lab Units 10/04/24 2049 10/03/24 2236 10/03/24 2025 10/03/24 0458 10/02/24 1601 SODIUM mmol/L 144 142 143 < [...] interval not displayed. Recent Labs Lab Units 10/04/24204810/03/24 2030 10/03/24 0458 10/02/24 1601 WBC K/cumm 23.0* 26.3* 30.5* 16.3* [...] fluids: IV SL Flushes: None Last BM: QUALITY ASSURANCE CONSULTANT # Nutrition -- regular diet -- encourage [...] mg daily CODE STATUS: Full Code Disposition: NNU Maria Isabel Unger NP Cosigned by Willy Nguyen MD at 10/06/2024 7:25 AM INSTRUCTOR OF NURSING RUCTOR OF NURSING RUCTOR OF NURSING * Nadia Moulton - 10/04/2024 2:37 PM [...] treatment team and contact the PT or QUALITY ASSURANCE CONSULTANT currently assigned to this patient. If a physical therapy clinician is not assigned to this patient, please call [phone]. 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 Loader Operator Object from Floor from a Standing Position [...] CGA 10/04/24 10/18/24 -- Cosigned by Arin Noriega PT at 10/04/2024 4:26 PM INSTRUCTOR OF NURSING RUCTOR OF NURSING RUCTOR OF NURSING * Taty Quezada OT - 10/04/2024 11:03 AM CST Occupational [...] not assigned to this patient, please call [phone]. 10/04/24 1103 General Chart Reviewed Yes Session Type Evaluation [...] Using Wheeled walker Prior Function Level of [place] Independent with ADLs;Independent with ambulation;Needs assistance with homemaking (Indp with ADLs with ww except assist for lower body dressing) Lives With Spouse Receives Help From Spouse/Significant other (time study observer assist) Vocational/Occupation (not working) Fall within the [...] name and address after me Jeffrey Adams [address] [place] [address] Without looking at the clock, tell me [...] perform toilet transfer with mod A to BSC 10/04/24 10/11/24 -- Problem: OT Misc Start Date: 10/04/24 Goal Start Date Expected End Date End Date OT LTG - Pt will complete Adls with modified independence 10/04/24 12/01/24 -- Problem: Toileting Start Date: 10/04/24 Goal Start Date Expected End Date End Date STG - Patient will complete toileting tasks with mod A 10/04/24 10/11/24 -- RUCTOR OF NURSING * Keri Ramon MD - 10/04/2024 8:28 AM CST Critical care note I have seen and examined this patient on the day of service. I have reviewed and confirmed the history, vitals, medications, laboratory and radiographic data with the ICU team. I have reviewed and discussed my treatment plan with the ICU team and other medical/strategic planning consultant staff as documented in the note [...] time. Keri Ramon M.D. Attending Physician, Neurocritical [employer] Program AssociateVisualization Developer, Department of Neurology RUCTOR OF NURSING * Florentin Dean MD - 10/04/2024 6:40 [...] (call resident in bold with questions) Chris Dena Note created by Florentin Dean MD on 10/04/2024 at 6:40 AM. Cosigned by James Robles MD at 10/04/2024 9:00 PM INSTRUCTOR OF NURSING RUCTOR OF NURSING RUCTOR OF NURSING * Tamanna Porras NP - 10/04/2024 6:16 [...] legs and feet bilaterally and arrives to [facility] for posterior lumbar-thoracic spinal fusion with [...] LABS Recent Labs Lab Units 10/03/24 2236 10/03/245 10/03/24 1407 10/03/24 0458 10/02/24 1601 SODIUM [...] Adult Diet Regular Diet effective now Question: ([facility]) Diet type Answer: Regular 10/02/241932 IV fluids: NS @ 10 ml/hr carrier Flushes: n/a Last BM: QUALITY ASSURANCE CONSULTANT # Nutrition -- regular diet -- bowel [...] mg daily CODE STATUS: Full Code Disposition: NNU Tamanna Porras NP Cosigned by Keri Ramon MD at 10/04/2024 3:53 PM INSTRUCTOR OF NURSING RUCTOR OF NURSING RUCTOR OF NURSING * Wild Perez MD - 10/03/2024 7:42 [...] intravenous Q10 Min PRN 0.2 mg at 10/02/24 1659 HYDROmorphone (DILAUDID) injection 0.4 mg 0.4 mg [...] (call resident in bold with questions) Chris Hwang Dean Note created by Wild Perez MD on 10/03/2024 at 7:42 AM. Cosigned by James Robles MD at 10/03/2024 8:15 AM INSTRUCTOR OF NURSING RUCTOR OF NURSING RUCTOR OF NURSING Associated attestation - James Robles MD - 10/03/2024 8:15 AM INSTRUCTOR OF NURSING I have seen and examined the patient [...] Incision dressed, drain x1 [place] [address] NNICU MAP>110 Dex 6q6 Diet: Advance as tolerated Antibiotics: Ancef & Vancomycin x 24hrs Activity Restrictions: No activity restrictions Imaging required: None If there are any issues or questions, please page Wild Perez MD at [phone] Wild Perez MD RUCTOR OF NURSING documented in this encounter H&P Notes * Eliz Chung, PIPE ORGAN BUILDER - 10/03/2024 1:48 PM CST Neuro Critical [...] legs and feet bilaterally and arrives to [facility] for posterior lumbar-thoracic spinal fusion with [...] Adult Diet Regular Diet effective now Question: ([facility]) Diet type Answer: Regular 10/02/241932 IV fluids: NS @ 100 ml/hr Flushes: n/a Last BM: QUALITY ASSURANCE CONSULTANT # Nutrition -- ADAT -- bowel reg [...] Keri Ramon MD at 10/04/2024 3:53 PM INSTRUCTOR OF NURSING RUCTOR OF NURSING RUCTOR OF NURSING * Meghan Major DO - 10/02/2024 6:46 AM CST I have reviewed the H&P, examined the patient, and endorse the findings as written. Plan of Care : Based on the above findings, I consider Lili F Thus to be an acceptable risk for : Procedure(s): FUSION SPINAL - POSTERIOR LUMBAR/THORACIC WITH INSTRUMENTATION T3-5 posterior spinal fusion with 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 LAMINECTOMY THORACIC DECOMPRESSION SPINAL CORD MONITORING RUCTOR OF NURSING RUCTOR OF NURSING Source Note - Jeronimo Bucrh NP - 09/13/2024 10:58 AM CDT Images from the original note were not included. [facility] Planning Preoperative Evaluation Record Evaluation type/location: CPAP CAM-SC Planned procedure site: [facility] (Pods 2/3/5/ORDER ENTRY CLERK) Date: 09/13/24 Anesthesia Evaluation Lili Delgado is [...] 2020. Pertinent negatives: hypertension ; CAD ; NH ; CABG ; valvular heart disease; valve [...] Deep vein thrombosis (DVT) of upper extremity ([facility]) ([facility]) 09/29/2021 Essential (primary) hypertension 08/04/2021 Abnormal EKG 07/31/2021 Benign prostatic hyperplasia without urinary obstruction 10/21/2020 Gastroesophageal reflux disease without esophagitis 10/21/2020 Elevated blood-pressure reading without diagnosis of hypertension 10/02/2019 Obesity 03/15/2019 Osteoarthritis of hip 11/15/2017 Lumbar spondylosis 11/15/2017 Pain of right hip joint 11/01/2017 Neuropathy ([facility]) 11/01/2017 Prediabetes 08/10/2017 Stage 3 chronic kidney disease ([facility]) 08/10/2017 Lumbago 06/04/2009 Numbness 06/04/2009 No past medical history on file. Past Surgical History: Procedure Laterality Date LUMBAR SPINE SURGERY 2020 L4/L5 SPINAL CORD STIMULATOR IMPLANT 2023 SPINE SURGERY 2010 TUMOR REMOVAL 2020 bladder tumor excision Allergies Allergen Reactions Sulfa Unknown Childhood reaction - unknown what reaction occurred Med List Status: Nurse Complete Set By: Alexandra Conti RN at 09/13/2024 10:43 AM Taking? Last Dose Start Date End Date Provider baclofen (LIORESAL) 10 mg tablet 09/13/2024 04/18/24 -- Zachery Rashid MD DULoxetine DR (CYMBALTA) 30 mg capsule 09/13/2024 04/10/24 -- Zachery Rashid MD finasteride (PROSCAR) 5 mg tablet 09/13/2024 05/23/24 -- Zachery Rashid MD mupirocin (BACTROBAN) 2 % ointment -- 07/27/24 -- James Robles MD Apply to each nostril 2 (two) times a day Apply pea size amount into each nostril twice a day for 5 days prior to surgery. Saccharomyces boulardii (Florastor) 250 mg capsule 09/13/2024 -- -- Zachery Rashid MD tamsulosin (FLOMAX) 0.4 mg extended release capsule 09/12/2024 04/10/24 -- Zachery Rashid MD traMADoL (ULTRAM) 50 mg tablet Past Month -- -- Zachery Rashid MD -- -- -- -- -- -- -- -- -- -- -- Current Outpatient Medications: baclofen (LIORESAL) 10 mg tablet DULoxetine DR [...] Name Juanis Keith RN AW Warren, Anthony James MARK Fe Brower Katrina I., RN Follow up:PIV placed w/o complication Ti Pressley RN RUCTOR OF NURSING * Jessica Fernández RN - 10/03/2024 11:32 PM CST Images from the original note were not included. Vascular Access Nurse: Procedure Note Summary of treatment provided to patient today is as follows : . Bedside Procedure Time out/Checklist (Last 4 Hours) Pre-Op Checklist Row Name 10/03/24 2200 Patient Preparation Temp 37.4 ??C (99.3 ??F) -JT User Cuellar (r) = Recorded By, (t) = Taken By, (c) = Cosigned By Initials Name Dmitry Rondon RN Vascular Access Documentation (Last 4 Hours) [facility] Additional Procedures Row Name 10/03/24 2332 Procedures Time in 2332 -ST Time out 0 -ST Time Calculation (min) 8 min -ST [...] Properties Placement Date: 10/02/24 -CU Placement Time: 08 -CU, created via procedure documentation Size: 20 G -CU Orientation: Right -CU Location: Radial -CU Securement Method: Taped;Transparent dressing -CU User Cuellar (r) = Recorded By, (t) = Taken By, (c) = Cosigned By Initials Name Juanis Keith RN CU Umesi, Chizoba, MD ST Turner, Sheri L., RN KB Brail, Katrina I., RN Plan: Follow up: Jessica Fernández RN RUCTOR OF NURSING * Olaf Pena III, MD - 10/02/2024 2:27 PM CST INTRAOPERATIVE NEUROMONITORING REPORT Name: Lili Delgado Date of Procedure: Surgeon: Travis IOTiffany Physician Start Time: 10:07 AM IOM Physician [...] using the electrical stimulator integrated into the Plurchase evoked potential machine. Bilateral TcMEPs were recorded [...] all changes at the times they occurred. RUCTOR OF NURSING documented in this encounter Consult Notes * [...] with AC x6 months, who presented to [facility] for T3-5 laminectomy/ decompression and intradural [...] Ecchymoses Lab/Radiology/Diagnostic Review: Recent Labs Lab Units 10/08/24221410/07/24221810/06/24211510/03/24 0458 10/02/24 1601 SODIUM mmol/L 141 142 [...] with AC x6 months, who presented to [facility] for T3-5 laminectomy/ decompression and intradural [...] to be discussed in detail with outpatient Physical Scientist). Heme f/u with Dr Salmon in about 3 months has been requested. Thank you for allowing us to participate in the care of Mr Delgado and we will continue to follow peripherally. Please call the Hematology service with any additional questions or concerns. This case was discussed with my attending physician Dr Salmon, who agrees with the above mentionedassessment and plan. [phone] Weekdays 8AM-4PM Weeknights 4PM - 8AM, all day on Weekends, all day on holidays and my days off work, please contactthe on-call fellow at [phone] For patients or family members viewing this note through [employer] programs. This note was written as a [...] longer be involved in your care. Claudia Mujkanovic, PIPE ORGAN BUILDER Department of Hematology 10/09/2024 , 3:53 PM Cosigned by Jason Salmon MD at 10/15/2024 6:32 PM INSTRUCTOR OF NURSING RUCTOR OF NURSING RUCTOR OF NURSING * Mary Lou Jack MD - 10/09/2024 [...] months. In 07/2021 he also saw OSH shear operator automatic Dr. aSez for pre-op eval, and was noted to [...] kidney disease) stage 3, GFR 30-59 ml/min ([facility]), Obesity, and Renal cyst. PSHX: has a past surgical history that includes Tumor removal (2020); Spinal cord stimulator implant (2023); Lumbar spine surgery (2020); and Spine surgery (2010). Family Hx: Adopted so unsure of family history. Possible NH in father Social Hx: reports that he [...] Lab/Radiology/Diagnostic Review: Labs: Recent Labs Lab Units 10/08/24221410/07/24221810/06/24211510/05/24224210/04/24 2049 HEMOGLOBIN g/dL 11.2* 11.4* 10.8* 10.5* [...] 5PM or on weekends, please page the appellate law clerk vocational childcare teacher with any questions or concerns. Mary Lou Mayfield Ma, MD 11:30 AM 10/09/24 Cosigned by Sofia Ochoa MD at 10/10/2024 2:53 PM INSTRUCTOR OF NURSING RUCTOR OF NURSING RUCTOR OF NURSING RUCTOR OF NURSING RUCTOR OF NURSING Associated attestation - Sofia Ochoa MD - 10/10/2024 2:53 PM INSTRUCTOR OF NURSING I have seen and examined the patient [...] The phone number for our clinic is [phone] - Urology will sign off. Thank you for allowing us to participate in this patient's care. To reach the urology consult resident from 6:00 to 18:00 (Wednesday-Wednesday), please call [phone].If you want to contact Urology consults after hours (18:00 to 6:00) and over the weekend, please call the lens grinding machine operator Neha Templeton NP RUCTOR OF NURSING documented in this encounter Nursing Notes * Jaimie Curiel RN - 10/11/2024 6:51 PM CST [id number] Alert and appropriate. Medicated for pain. Zheng to gravity. Tolerating diet. Heparin gttper nomogram. IVF as ordered. Up in chair. Total lift back to bed. See labs, flowsheets. RUCTOR OF NURSING * Kristin Land RN - 10/05/2024 9:37 PM CST Patient transferred to room 60120-76. Neuro status and VSS. Bedside shift report given to MARK Fox. Patient belongings transferred w/ pt, and are at bedside. RUCTOR OF NURSING * Melia Maria RN - 10/02/2024 4:23 [...] not unexpected. Neurosurgery at bedside assessing patient. RUCTOR OF NURSING RUCTOR OF NURSING documented in this encounter Miscellaneous Notes * Plan of Care - Marla Larson RN - 10/13/2024 2:12 PM CST Per Medical Chart/Rounds/IDR: Heparin infusion. Zheng replaced ADD: 10/14 Plan/referrals made/in place: [facility] following Transportation: [facility] F/U Appointments: Patient to follow up with spinal surgery Plan for weekend discharge: [facility] following. Liacarlee Brown [phone] vocational childcare teacher for this weekend. [facility] on [facility], trip # [phone]. Discharge packet initiated and placed by patient's paper chart folder. Will follow. RUCTOR OF NURSING RUCTOR OF NURSING * Plan of Care - Marla Larson RN - 10/13/2024 9:21 AM CST Per Rounds: Dopplers. Heparin infusion. Zheng replaced. ADD: 10/14 Plan & referrals made/in place: [facility] following. Patient's Identified Problem/Goal Problem: Ensure acute medical needs are met and patient has a safe discharge plan. Goal: Secure a discharge plan that patient/family are agreeable with and ensure patient has continuum of care. Salsa Dance Instructor will continue to follow and assist with discharge planning as needed RUCTOR OF NURSING * Plan of Care - Marla Larson [...] and ensure patient has continuum of care. Salsa Dance Instructor will continue to follow and assist with discharge planning as needed RUCTOR OF NURSING RUCTOR OF NURSING * Plan of Care - Joyce Guillen [...] VS, I/O, pain, and maintain safe environment. Home Health Registered Nurse Patient Centered Goal for Treatment: Get better and go home Summary: Pt resting comfortably in bed, set up for breakfast. RUCTOR OF NURSING * Plan of Davy - Mauricio Esparza RN - 10/12/2024 6:52 AM INSTRUCTOR OF NURSING Goals: Clinical Goals for the Shift: VSS, monitor labs, management of pain, remain free from falls, promote rest and comfort Prison Patient Centered Goal for Treatment: Get better [...] impaired skin integrity will decrease Outcome: Progressing RUCTOR OF NURSING * Plan of Care - Neville Larson [...] free from falls, promote rest and comfort Prison Patient Centered Goal for Treatment: Get better and go home Summary: VSS, A&O x4, controlled pain with pain medications. Pt resting between care. Fall precautions in place. Call light in reach. RUCTOR OF NURSING * Plan of Care - Neha Velasquez RN - 10/11/2024 12:46 PM INSTRUCTOR OF NURSING Goals: Clinical Goals for the Shift: VSS, monitor labs, management of pain, remain free from falls, promote rest and comfort Prison Patient Centered Goal for Treatment: Get better and go home Summary: Problem: Lack of Knowledge Goal: Ability to develop a pain control plan will improve Outcome: Progressing Flowsheets (Taken 10/11/2024 1629) Ability to develop a pain control plan [...] of mobility impairment will improve Outcome: Progressing RUCTOR OF NURSING * Plan of Care - Marla Larson RN - 10/11/2024 9:58 AM CST Per Rounds: Possible restart heparin infusion ADD: 10/12 vs 10/13 Plan & referrals made/in place: [facility] following. Patient's Identified Problem/Goal Problem: Ensure acute medical needs are met and patient has a safe discharge plan. Goal: Secure a discharge plan that patient/family are agreeable with and ensure patient has continuum of care. Salsa Dance Instructor will continue to follow and assist with discharge planning as needed RUCTOR OF NURSING * Plan of Care - Neville Larson - 10/10/2024 10:09 PM CST Problem: Lack [...] precautions in place. Call light in reach. RUCTOR OF NURSING * Consults, Subsequent - Claudia Ryan NP - 10/10/2024 3:48 PM INSTRUCTOR OF NURSING Images from the original note were not [...] 2011 TUMOR REMOVAL 2020 bladder tumor excision Medications [...] % Lab/Radiology/Diagnostic Review: Recent Labs Lab Units 10/10/2431810/09/24204010/08/24221410/07/242218 SODIUM mmol/L 141 -- 141 142 POTASSIUM [...] 3.1 -- Recent Labs Lab Units 10/10/24 1151 10/10/2431810/08/242214 WBC K/cumm 21.0* 18.6* 19.8* HEMOGLOBIN g/dL [...] with AC x6 months, who presented to [facility] for T3-5 laminectomy/ decompression and intradural [...] consider: Enoxaparin 30mg BID---> 10/16/2024 Heparin gtt [id number]---> if no bleeding concerns, switch to Apixaban 5mg BID Vs. Heparin gtt with PTT goal per primary team and no bolus--->10/16/2024 Heparin gtt with standard PTT goal 60-90 [id number]---> Apixaban 5mg BID if no concern for [...] to call with questions or concerns. Pg [phone] Weekdays 8AM-4PM. Weeknights 4PM - 8AM, all day on Weekends, all day on holidays and my days off work, please contactthe on-call fellow at [phone] For patients or family members viewing this note through [employer] programs. This note was written as a [...] Sherry Calles MD at 10/13/2024 2:48 PM INSTRUCTOR OF NURSING RUCTOR OF NURSING RUCTOR OF NURSING * Significant Event - Anibal Camacho MD - 10/10/2024 9:45 AM INSTRUCTOR OF NURSING Interventional Radiology Consult Resolution Note Reason for [...] discussed with Dr. Huntley, the IR Attending. RUCTOR OF NURSING * Plan of Care - Marla Larson RN - 10/10/2024 8:55 AM CST Per Rounds: patient with DVT. Therapeutic AC vs IVC filter. ADD: 10/12 Plan & referrals made/in place: [facility] following. Notified liaison Lachelle of updated ADD Patient's Identified Problem/Goal Problem: Ensure acute medical needs are met and patient has a safe discharge plan. Goal: Secure a discharge plan that patient/family are agreeable with and ensure patient has continuum of care. Salsa Dance Instructor will continue to follow and assist with discharge planning as needed RUCTOR OF NURSING * Plan of Care - Neville Larson [...] precautions in place. Call light in reach. RUCTOR OF NURSING * Plan of Care - Geovanni Bell RN - 10/09/2024 5:09 PM CST Goals: Clinical Goals for the Shift: q4 VS, NC, OOB, pain control Problem: Lack of Knowledge Goal: Ability to develop a pain control plan will improve 10/09/20241708 by Geovanni Bell RN [...] of mobility impairment will improve Outcome: Progressing RUCTOR OF NURSING * Plan of Care - Marla Larson RN - 10/09/2024 9:19 AM CST Per Rounds: Zheng replaced. EGK for chest pain. Chest x-rays, dopplers. ADD: 10/10 Plan & referrals made/in place: [facility] following. Patient's Identified Problem/Goal Problem: Ensure acute medical needs are met and patient has a safe discharge plan. Goal: Secure a discharge plan that patient/family are agreeable with and ensure patient has continuum of care. Salsa Dance Instructor will continue to follow and assist with discharge planning as needed RUCTOR OF NURSING * Plan of Care - Sia Mathias [...] S/S of infection 10/08/2024 1547 by Sia Mathias, RN Outcome: Progressing Flowsheets (Taken 10/08/2024 0900) Incision(s), Wound(s) or Drain Site(s) healing without S/S of infection: Assess and document dressing/incision, wound bed, drain sites and surrounding tissue Problem: Cardiovascular Goal: Maintains optimal cardiac output and hemodynamic stability 10/08/2024 1547 by Sia Mathias RN Outcome: Progressing Flowsheets (Taken 10/08/2024 0900) Maintain optimal cardiac output and hemodynamic Stability: Monitor vital signs, rhythm, and trends RUCTOR OF NURSING * Plan of Care - Geovanni Bell [...] Understanding discharge needs will improve Outcome: Progressing RUCTOR OF NURSING * Plan of Care - Skinny Dubose [...] oxycodone, carleen lift, will continue to monitor. RUCTOR OF NURSING * Plan of Care - Marla Larson RN - 10/06/2024 10:57 AM INSTRUCTOR OF NURSING Salsa Dance Instructor noted patient has been recommended for Inpatient Rehab by PT/OT. Salsa Dance Instructor met withthe patient at bedside to discuss recommendations by therapy and to work on a potential discharge disposition plan. Salsa Dance Instructor provided education to patien on the rehabilitation process. Patient reported being interested in placement for rehabilitation. marketing systems manager provided a list of Inpatient Rehab Facility choices to patient. [facility] out additional [facility] via [facility]. CM awaiting acceptance from an Inpatient Rehab Facility and will continue to work on discharge planning with patient and family. RUCTOR OF NURSING * ECIN Note - Marla Larson RN [...] assess Unable to assess Unable to assess RUCTOR OF NURSING * ECIN Note - Marla Larson RN - 10/06/2024 10:56 AM CST Images from the original note were not included. Patient Information: OT Eval and Treat Last 72 Hours OT Evaluation Row Name 10/04/24 1103 Chart Reviewed Yes -CH Session Type Evaluation - OT Received On 10/04/24 - Safe Environment Arm band checked;Patient found in supine;Gait belt utilized for all out of bed mobility - Subjective Agreeable to Therapy - Family/Caregiver Present No -CH Occupational Therapy-Patient Goal pt was agreeable to [...] Equipment-Currently Using Wheeled walker - Level of Willow Independent with ADLs;Independent with ambulation;Needs assistance with homemaking Indp with ADLs with ww except assist for lower body dressing -CH Lives With Spouse -CH Receives Help From Spouse/Significant other time study observer assist - Vocational/Occupation -- not working -CH Fall within the last 6 months Yes -CH Fall within the last 6 months comment one fall. Pt reports he bent over to pick a tissue up off theground and next thing I knew, I was on the ground. -CH ADLS (WDL) X -CH Grooming: Where assessed Chair -CH Grooming: Level of assistance Maximum Assist -CH Grooming: Assistance with Reaching all areas of head/face min for task, total for balance -CH LE Dressing: Where assessed Edge of bed -CH LE Dressing: Level of assistance Dependent - Toileting: Where assessed -- edge of bed - Toileting: Level of assistance Maximum Assist - Toileting: Assistance with Clothing management down;Clothing management up;Perineal hygiene;Anterior;Posterior task simulated; 1/4 (able to manipulate wipes) for task, max for standing balance -CH Toilet Transfers Comments NT 2/2 safety concern. -CH Pain Assessment 0-10 -CH Pain Score 3 -CH Pain Location Back (Cervical) -CH Pain Interventions Repositioned - Arousal/Alertness Alert;Appropriate responses to stimuli -CH Attention Span Controlled environment;Difficulty dividing attention - Memory -- recalls 4/5 items after 2 minute delay - Orientation Oriented X4 (person, place, time, situation) - Following Commands Follows all commands and directions without difficulty -CH Safety Judgment Good awareness of safety precautions -CH Compliance/Behavior Easy to engage - What year is it now? 0 -CH What month is it now? 0 -CH Repeat this name and address after me Jeffrey Adams [address] [place] [address] - Without looking at the clock, tell me what time it is 3 -CH Count aloud backwards from 20-1 0 -CH Say the months of the year backwards in reverse order 0 -CH Repeat the name and address I asked [...] extremity supported -CH Static Sitting-Sitting Surface Bed -CH Static Sitting-Level of Assistance Moderate assistance posterior lean -CH Static Standing-Balance Support Unilateral upper extremity supported -CH Static Standing-Level of Assistance Moderate assistance - Bed Mobility From 1 Supine -CH Bed Mobility Type 1 To - Bed Mobility to 1 Short sit;Edge of bed - Level of Assistance 1 Maximum Assist -CH Bed Mobility Comments 1 A to roll [...] 1 -CH Bathing 2 -CH Toileting 1 - Putting on and taking off upper body [...] skin integrity;Prolonged dependence for self care tasks - Recommend Inpatient Rehab/Acute Rehab due to Ability [...] Cosigned By Initials Name Effective Dates Taty Quezada OT 08/14/19 - OT Treatment No documentation. OT Notes 10/04/2024 1:09 PM Progress Notes signed by Taty Quezada OT , PT Eval and Treat Last 72 Hours PT Evaluation Row Name 10/04/24 9127 Chart Reviewed Yes -GM (r) LG (c) [...] walker -GM (r) LG (c) Level of Willow Independent with ADLs;Independent with ambulation;Needs assistance with homemaking -GM (r) LG (c) Lives With Spouse -GM (r) LG (c) Receives Help From Spouse/Significant other radio time sales supervisor -GM (r) LG (c) Fall within the [...] Standing 0 -GM (r) LG (c) 9. Loader Operator Object from Floor from a Standing Position [...] prevent full participation inhome and community mobility - (r) LG (c) Plan Plan of care initiated;If this is the last note, consider this the discharge summary - (r) LG (c) PT Recommendation/Plan Inpatient Rehab Facility - (r) LG (c) Patient at high risk for Falls;Readmission;Injury due to decreased ability to care for self;Injury due to reduced functional status;Injury due to balance deficits - (r) LG (c) Recommend Inpatient Rehab/Acute Rehab due to Ability to actively participate in intensive therapy 3hours/day, 5 days/week or 900 minutes per week;Highly motivated to participate in therapy;Not at baseline due to impaired ability to complete ADLs;Impaired ability to complete functional mobility;Requires greater than 25% physical assistance with most mobility tasks;Requires skilled therapy interventions to address neurological deficits - (r) LG (c) PT Frequency during current admission 3-5x/wk - (r) LG (c) Treatment/Interventions during current admission Balance Training;Bed mobility;Functional activity;Gait training;Neuromuscular re-education;Stair training;Strengthening;Therapeutic activity;Therapeutic exercise;Transfer training - (r) LG (c) PT Evaluation Complete Yes -GM (r) LG (c) PT Start Time 1437 - (r) LG (c) PT Stop Time 1517 -GM (r) LG (c) PT Time Calculation (min) 40 min - User Cuellar (r) = Recorded By, (t) = Taken By, (c) = Cosigned By Initials Name Effective Dates Nadia Moulton 08/01/24 - LG Arin Noriega, PT 08/14/19 - PT TREATMENT (Last 168 Hours) PT Treatment Row Name 10/05/24 0986 PT Last Visit Session Type Treatment -DT [...] Progress Notes signed by Magali Ocampo, PT RUCTOR OF NURSING * ECIN Note - Marla Larson RN - 10/06/2024 10:56 AM CST Patient Information: Meds and Admin Active Only All Meds/Most Recent Administrations acetaminophen (TYLENOL) tablet 1,000 mg [[id number]] Ordering Provider: James Robles MD Status: Completed (Past End Date/Time) Ordered On: 10/02/24547 Starts/Ends: 10/02/24629 - 10/02/24614 Ordered Dose (Remaining/Total): 1,000 mg (0/1) Route: oral Frequency: Once Ordered Rate/Order Duration: -- / -- Admin Instructions: Administer 60 minutes prior to surgery. Timestamps Action Dose Route Other Information 10/02/24614 Given 1,000 mg oral Performed by: Juanis Lozano RN Scanned Package: 8886-9992-35, 3762-2636-35 gabapentin (NEURONTIN) capsule 300 mg [[id number]] Ordering Provider: James Robles MD Status: Completed (Past End Date/Time) Ordered On: 10/02/24547 Starts/Ends: 10/02/24629 - 10/02/24 0615 Ordered Dose (Remaining/Total): 300 mg (0/1) Route: oral Frequency: Once Ordered Rate/Order Duration: -- / -- Admin Instructions: Administer 60 minutes prior to surgery. Timestamps Action Dose Route Other Information 10/02/24614 Given 300 mg oral Performed by: Juanis Lozano RN Scanned Package: [id number] ceFAZolin (ANCEF) 2,000 mg/20 mL in sterile water (premix) 2,000 mg [[id number]] Ordering Provider: James Robles MD Status: Completed [...] in sodium chloride 0.9% (premix) 1,500 mg [[id number]] Ordering Provider: James Robles MD Status: Completed (Past End Date/Time) Ordered On: 10/02/24547 Starts/Ends: 10/02/24629 - 10/02/24 0943 Ordered Dose (Remaining/Total): 1,500 mg (0/1) Route: intravenous Frequency: Once Ordered Rate/Order Duration: -- / 90 Minutes Admin Instructions: Administer within 120 minutes of incision. Timestamps Action Dose / Duration Route Other Information 10/02/24 08 Given 1,500 mg 90 Minutes intravenous Performed by: Vance Morales MD oxyCODONE (ROXICODONE) tablet 5 mg [[id number]] Ordering Provider: Vance Morales MD Status: Completed (Past End Date/Time) Ordered On: 10/02/241549 Starts/Ends: 10/02/241549 - 10/02/24 1642 Ordered Dose (Remaining/Total): 5 mg (0/1) Route: oral Frequency: Once as needed Ordered Rate/Order Duration: -- / -- Admin Instructions: When able to tolerate PO. Timestamps Action Dose Route Other Information 10/02/24 1642 Given 5 mg oral Performed by: Melia Maria RN Scanned Package: [id number] baclofen (LIORESAL) tablet 10 mg [[id number]] Ordering Provider: Wild Perez MD Status: Dispensed Ordered On: 10/02/24 154 Start: 10/02/24 1730 Ordered Dose (Remaining/Total): 10 mg (--/--) Route: oral Frequency: 2 times daily Ordered Rate/Order Duration: -- / -- Timestamps Action Dose Route Other Information 10/06/24 0851 Given 10 mg oral Performed by: Skinny Dubose RN Scanned Package: [id number] (CYMBALTA) extended release capsule 30 mg [[id number]] Ordering Provider: Wild Perez MD Status: Dispensed Ordered On: 10/02/241932 Start: 10/02/24 2100 Ordered Dose (Remaining/Total): 30 mg (--/--) Route: oral Frequency: 2 times daily Ordered Rate/Order Duration: -- / -- Admin Instructions: Capsule may be opened and contents mixed with applesauce or apple juice ONLY. Do not crush or chew capsule Timestamps Action Dose Route Other Information 10/06/24 0851 Given 30 mg oral Performed by: Skinny Dubose RN Scanned Package: [id number] finasteride (PROSCAR) tablet 5 mg [[id number]] Ordering Provider: Tamanna Porras NP Status: Dispensed Ordered On: 10/02/241932 Start: 10/03/24 0900 Ordered Dose (Remaining/Total): 5 mg (--/--) Route: oral Frequency: Every morning Ordered Rate/Order Duration: -- / -- Admin Instructions: Do not crush, break, or open. Timestamps Action Dose Route Other Information 10/06/24 0851 Given 5 mg oral Performed by: Skinny Dubose RN Scanned Package: [id number] sodium chloride 0.9% flush 0.5-20 mL [[id number]] Ordering Provider: Wild Perez MD Status: Verified Ordered On: 10/02/241932 Start: 10/02/241932 Ordered Dose (Remaining/Total): 0.5-20 mL (--/--) Route: intra-catheter Frequency: As needed Ordered Rate/Order Duration: -- / -- Admin Instructions: Flush volume based on line type and size. Flush before and after each use. (No admins scheduled or recorded for this medication) Carrier Fluids for Secondary Infusion - 0.9% Sodium Chloride [[id number]] Ordering Provider: Wild Perez MD Status: Verified [...] this medication) oxyCODONE (ROXICODONE) tablet 5 mg [[id number]] Ordering Provider: Wild Perez MD Status: Verified [...] this medication) ondansetron (ZOFRAN) injection 4 mg [[id number]] Ordering Provider: Wild Perez MD Status: Verified Ordered On: 10/02/241932 Start: 10/02/241932 Ordered Dose (Remaining/Total): 4 mg (--/--) Route: intravenous Frequency: Every 6 hours PRN Ordered Rate/Order Duration: -- / 2 Minutes Admin Instructions: Proceed to trimethobenzamide if no relief within 30 minutes. (No admins scheduled or recorded for this medication) famotidine (PEPCID) tablet 20 mg [[id number]] Ordering Provider: Wild Perez MD Status: Dispensed Ordered On: 10/02/241932 Start: 10/02/242099 Ordered Dose (Remaining/Total): 20 mg (--/--) Route: oral Frequency: Every 12 hours scheduled Ordered Rate/Order Duration: -- / -- Admin Instructions: If able to swallow tablets. Timestamps Action Dose Route Other Information 10/06/24850 Given 20 mg oral Performed by: Skinny Dubose RN Scanned Package: 56906-979-72 docusate sodium (COLACE) capsule 100 mg [[id number]] Ordering Provider: Wild Perez MD Status: Dispensed Ordered On: 10/02/241932 Start: 10/02/242099 Ordered Dose (Remaining/Total): 100 mg (--/--) Route: oral Frequency: 2 times daily Ordered Rate/Order Duration: -- / -- Admin Instructions: If able to swallow capsules. Hold for diarrhea. Timestamps Action Dose Route Other Information 10/06/24850 Given 100 mg oral Performed by: Skinny Dubose RN Scanned Package: 49620-683-06 senna (SENOKOT) tablet 1 tablet [[id number]] Ordering Provider: Wild Perez MD Status: Dispensed Ordered On: 10/02/241932 Start: 10/02/242099 Ordered Dose (Remaining/Total): 1 tablet (--/--) Route: oral Frequency: 2 times daily Ordered Rate/Order Duration: -- / -- Admin Instructions: If able to swallow tablets. Hold for diarrhea. Timestamps Action Dose Route Other Information 10/06/24850 Given 1 tablet oral Performed by: Skinny Dubose RN Scanned Package: 0870-0841-96 polyethylene glycol (MIRALAX) packet 17 g [[id number]] Ordering Provider: Wild Perez MD Status: Dispensed Ordered On: 10/02/241932 Start: 10/02/242014 Ordered Dose (Remaining/Total): 17 g (--/--) Route: oral Frequency: Daily Ordered Rate/Order Duration: -- / -- Admin Instructions: Hold for diarrhea. Timestamps Action Dose Route Other Information 10/06/24 0851 Given 17 g oral Performed by: Skinny Dubose RN Scanned Package: 83554-553-34 bisacodyL (DULCOLAX) suppository 10 mg [[id number]] Ordering Provider: Wild Perez MD Status: Dispensed Ordered On: 10/02/241932 Start: 10/02/241932 Ordered Dose (Remaining/Total): 10 mg (--/--) Route: rectal Frequency: Daily PRN Ordered Rate/Order Duration: -- / -- Admin Instructions: If not bowel movement in 48 hours. Timestamps Action Dose Route Other Information 10/05/242336 Given 10 mg rectal Performed by: Kay Aaron RN Scanned Package: 1300-1901-96 enoxaparin (LOVENOX) syringe 30 mg [[id number]] Ordering Provider: Wild Perez MD Status: Dispensed Ordered On: 10/02/241932 Start: 10/03/242099 Ordered Dose (Remaining/Total): 30 mg (--/--) Route: subcutaneous Frequency: Daily (for enoxaparin) Ordered Rate/Order Duration: -- / -- Timestamps Action Dose Route / Site Other Information 10/05/241957 Given 30 mg subcutaneous Left Lower Abdomen Performed by: Kristin Land RN Scanned Package: 77571-687-89 ceFAZolin (ANCEF) 2,000 mg/20 mL in sterile water (premix) 2,000 mg [[id number]] Ordering Provider: Wild Perez MD Status: Completed (Past End Date/Time) Ordered On: 10/02/241824 Starts/Ends: 10/02/242099 - 10/03/24 0459 Ordered Dose (Remaining/Total): 2,000 mg (0/2) Route: [...] Performed by: Meliza Koch RN Scanned Package: [address]-3 vancomycin 1500 mg/515 mL in sodium chloride 0.9% (premix) 1,500 mg [[id number]] Ordering Provider: Wild Perez MD Status: Completed (Past End Date/Time) Ordered On: 10/02/241932 Starts/Ends: 10/02/242014 - 10/02/242207 Ordered Dose (Remaining/Total): 1,500 mg (0/1) Route: intravenous Frequency: Once Ordered Rate/Order Duration: -- / 90 Minutes Admin Instructions: Administer 12 hours after pre-operative dose. Timestamps Action Dose / Duration Route Other Information 10/02/242037 New Bag 1,500 mg 90 Minutes intravenous Performed by: Melia Maria RN Scanned Package: 2989-7082-43 sodium chloride 0.9% bolus 1,000 mL [[id number]] Ordering Provider: Zora Martínez MD Status: Completed (Past End Date/Time) Ordered On: 10/03/24934 Starts/Ends: 10/03/24 1015 - 10/03/2442 Ordered Dose (Remaining/Total): 1,000 mL (0/1) Route: intravenous Frequency: Once Ordered Rate/Order Duration: -- / -- Line Med Link Info Comment Peripheral IV 10/02/24 18 G Right Hand 10/03/24941 by Alida Larry RN -- Timestamps Action Dose Route / Site Other Information 10/03/24941 New Bag 1,000 mL intravenous Right Hand Performed by: Alida Larry RN Scanned Package: 0069-6436-77 magnesium sulfate 2 g/50 mL in water (premix) 2 g [[id number]] Ordering Provider: Laura Sheets NP Status: Completed [...] mL in sterile water (premix) 2,000 mg [[id number]] Ordering Provider: Geraldine Leary NP Status: Dispensed Ordered On: 10/04/24 0850 Starts/Ends: 10/04/24 1000 - 10/09/24 0959 Ordered Dose (Remaining/Total): 2,000 mg (2/5) Route: intravenous Frequency: Every 24 hours scheduled Ordered Rate/Order Duration: 240 mL/hr / 5 Minutes Line Med Link Info Comment Peripheral IV 10/02/24 18 G Right Hand 10/06/24 09 by Skinny Dubose RN -- Timestamps Action Dose / Rate / Duration Route Other Information 10/06/24921 Given 2,000 mg 240 mL/hr 5 Minutes intravenous Performed by: Skinny Dubose RN Scanned Package: [address]-8 azithromycin (ZITHROMAX) tablet 500 mg [[id number]] Ordering Provider: Geraldine Leary NP Status: Completed (Past End Date/Time) Ordered On: 10/04/24 0850 Starts/Ends: 10/04/24 0930 - 10/06/24 0851 Ordered Dose (Remaining/Total): 500 mg (0/3) Route: oral Frequency: Daily Ordered Rate/Order Duration: -- / -- Timestamps Action Dose Route Other Information 10/06/24 0851 Given 500 mg oral Performed by: Skinny Dubose RN Scanned Package: [address]-4, [address]-7 acetaminophen (TYLENOL) tablet 1,000 mg [[id number]] Ordering Provider: Geraldine Leary NP Status: Verified Ordered On: 10/05/24 1301 Start: 10/05/24 1315 Ordered Dose (Remaining/Total): 1,000 mg (--/--) Route: oral Frequency: Every 6 hours PRN Ordered Rate/Order Duration: -- / -- (No admins scheduled or recorded for this medication) dexAMETHasone (DECADRON) tablet 4 mg [[id number]] Ordering Provider: Cherry Hwang MD Status: Dispensed Ordered On: 10/05/241618 Starts/Ends: 10/05/241799 - 10/06/241758 Ordered Dose (Remaining/Total): 4 mg (1/4) Route: oral Frequency: Every 6 hours scheduled Ordered Rate/Order Duration: -- / -- Timestamps Action Dose Route Other Information 10/06/24 0512 Given 4 mg oral Performed by: Kay Aaron RN Scanned Package: 39191-262-86 dexAMETHasone (DECADRON) tablet 4 mg [[id number]] Ordering Provider: Cherry Hwang MD Status: Dispensed Ordered On: 10/05/241618 Starts/Ends: 10/06/241799 - 10/07/242158 Ordered Dose (Remaining/Total): 4 mg (3/3) Route: oral Frequency: Every 8 hours scheduled Ordered Rate/Order Duration: -- / -- (No admins scheduled or recorded for this medication) dexAMETHasone (DECADRON) tablet 2 mg [[id number]] Ordering Provider: Cherry Hwang MD Status: Dispensed Ordered On: 10/05/241618 Starts/Ends: 10/07/242199 - 10/08/242158 Ordered Dose (Remaining/Total): 2 mg (3/3) Route: oral Frequency: Every 8 hours scheduled Ordered Rate/Order Duration: -- / -- (No admins scheduled or recorded for this medication) dexAMETHasone (DECADRON) tablet 1 mg [[id number]] Ordering Provider: Cherry Hwang MD Status: Verified Ordered On: 10/05/241618 Starts/Ends: 10/08/242199 - 10/09/242158 Ordered Dose (Remaining/Total): 1 mg (3/3) Route: oral Frequency: Every 8 hours scheduled Ordered Rate/Order Duration: -- / -- (No admins scheduled or recorded for this medication) dexAMETHasone (DECADRON) tablet 1 mg [[id number]] Ordering Provider: Cherry Hwang MD Status: Verified Ordered On: 10/05/241618 Starts/Ends: 10/09/24 2200 - 10/10/242058 Ordered Dose (Remaining/Total): 1 mg (2/2) Route: oral Frequency: Every 12 hours scheduled Ordered Rate/Order Duration: -- / -- (No admins scheduled or recorded for this medication) dexAMETHasone (DECADRON) tablet 1 mg [[id number]] Ordering Provider: Cherry Hwang MD Status: Verified Ordered On: 10/05/241618 Starts/Ends: 10/11/24 09 - 10/12/24 0859 Ordered Dose (Remaining/Total): 1 mg (11/22) Route: oral Frequency: Daily Ordered Rate/Order Duration: -- / -- (No admins scheduled or recorded for this medication) [facility] * ECIN Note - Marla Larson RN [...] 10/03/24 1451 No risk AMZ Intake/Output 10/03/24 07 - 10/04/24 0659 10/04/24 07 - 10/05/24 0659 10/05/24 07 - 10/06/24 0659 10/06/24 0700 - 10/07/24 0659 Total Total 7384-1992 8032-2389 7204-5019 Total 7991-6021 9530-4172 4208-4125 Total Intake (ml) 4486.5 1142.6 20 333 990 8892 120 -- -- 120 Output (ml) 3720 1935 485 937 1361 2500 -- -- -- -- Net (ml) [...] 36.3 - 37.1 36.4 36.4 (97.6) 10/06 07 Pulse 54 - 71 57 57 10/06 07 Resp 12 - 17 17 10/06 07 SpO2 (%) 92 - 100 94 94 10/06 07 BP 120/64 - 177/82 142/75 142/75 10/06 0700 MAP (mmHg) 80 - 113 91 91 10/06 07 Default Flowsheet Data (most recent) Endurance Tests No documentation. Nursing Nutrition None Nursing Mobility Activity 10/06 0922 Resting in bed 10/06 0600 Resting in bed 10/06 0500 Resting in bed 10/06 0400 Resting in bed 10/06 0300 Resting in bed 10/06 0200 Resting in bed 10/06 0100 Resting in bed 10/06 0000 Resting in bed 10/05 2300 Resting in bed 10/05 2200 Resting in bed 10/05 2100 Resting in bed 10/05 2029 Resting in bed 10/05 2000 Chair 10/05 [...] 2000 Pillow support;Refused by patient/family (Comment: refuse turm) 10/03 1800 Pillow support;Supine 10/03 1600 Left [...] Bilateral 10/04 0200 Bilateral 10/04 0000 Bilateral 10/03 2200 Bilateral 10/03 2000 Bilateral 10/03 1800 [...] IPC/SCD 10/04 1200 IPC/SCD 10/04 1000 IPC/SCD / 0800 IPC/SCD / 0600 IPC/SCD 10/04 0400 IPC/SCD 10/04 0200 [...] On 10/03 1430 On 10/03 1200 On [facility] * Plan of Care - Kay Aaron RN - 10/06/2024 3:29 AM INSTRUCTOR OF NURSING Goals: Clinical Goals for the Shift: VSS, [...] Understanding discharge needs will improve Outcome: Progressing [facility] * Provider Query - Tamanna Porras NP [...] clinical impression in detail Acidosis References Iwona BOGGS, Petra GÓMEZ. Lactic Acidosis. [Updated 2018Oct 16]. In: [employer] [Internet]. [facility]): [employer]; 2019-. Available from: https://www.ncbi.nlm.nih.gov/books/ANJ908768/ https://www.Revokom.Heverest.ru/contents/gfsjby-zm-zbbwls-acidosis https://www.Trainfox/professional/igyjhodce-xlk-escgdfbbd-disorders/acid -yaps-llncmgaame-nxw-disorders/metabolic-acidosis https://www.Trainfox/professional/hgjnbedoe-utu-wdosavysv-disorders/acid -atrk-jenphdnezr-axe-disorders/respiratory-acidosis https://www.Trainfox/professional/pbztpqdgd-gwn-xxclpttil-disorders/acid -afpx-pfuofwjyyn-udy-disorders/lactic-acidosis Guide to Clinical Validation, Documentation and Coding, 2019 Edition, [employer] 360 As of August 22, 2022, [facility] Final Rule updates, if acute respiratory acidosis [...] medical record. Respectfully Kannan LA RN CCDS [email or web address] [phone] [facility] * Plan of Care - Eric Valdez [...] Understanding discharge needs will improve Outcome: Ongoing [facility] * Plan of Davy - Leonel Blackwell RN - 10/05/2024 5:19 [...] Understanding discharge needs will improve Outcome: Progressing [facility] * Plan of Care - Eric Valdez [...] Understanding discharge needs will improve Outcome: Ongoing [facility] * Provider Query - Tamanna Porras NP [...] legs and feet bilaterally and arrives to [facility] for posterior lumbar-thoracic spinal fusion with [...] Penicillin Streptomycin (high-level) Tetracycline Trimeth/Sulfa Vancomycin References [facility] Antibiogram 2021 [facility] Antibiogram 2021 [facility] Antibiogram 2021 From the ICD-10-CM Coding Guidelines, [...] medical record. Respectfully Kannan LA RN CCDS [email or web address] [phone] [facility] * Provider Query - Tamanna Porras NP [...] legs and feet bilaterally and arrives to [facility] for posterior lumbar-thoracic spinal fusion with [...] Debility References Functional Quadriplegia. ICD-9-CM Coding Clinic, Fourth 2007 Page: 143 Effective with discharges: August [facility]: Cancer Fatigue From the ICD-10-CM Coding Guidelines, [...] medical record. Respectfully Kannan LA RN CCDS [email or web address] [phone] [facility] * Initial Assessments - Saturnino Kennedy RN - 10/04/2024 9:35 AM INSTRUCTOR OF NURSING CM Initial Assessment Interview Note Information Obtained From: Patient Admission Source: CPAP CAM SC Impression: Patient admitted to [address] [facility] post operative for T3-5 laminectomy and decompression, arachnoid cyst wall fenestration protocol. Plan Includes: marketing systems manager will monitor for post acute discharge needs such as therapy, nursing, medical equipment or agency referrals as indicated by the care team. Primary Source of Transportation: Does the patient need discharge transport arranged?: No If private car is appropriate at discharge, Reginald Delgado [phone] will provide transport at discharge from hospital. Health Insurance Coverage: Medicare A & B, BCBS Federal Prescription Coverage: Yes Pharmacy: [id number] [place], [place] - [address] AT [place] [address]) & [address] [facility] [id number] Primary Care Provider: Sj Benson MD Prior to Admission: Functional Status: Minimal assist with ADLs Primary Caregiver: Spouse (Reginald Thus [phone]) Support System: Spouse/Significant Other, Children Home Care Services: No Outpatient Services: No Durable Medical Equipment: Walker (wheeled) Living Arrangements: Spouse/significant other (Reginald Thus [phone]) Type of Residence: Private residence Steps in [...] car is appropriate at discharge, Reginald Thus [phone] will provide transport at discharge from hospital. [...] Collaboration with Patient, Provider, Direct Care Nurse, Palaeontologist, and other members of theHealth Care Team to assure needed interventions completed. 2. Return patient to optimal level of self-care post discharge. 3. Salsa Dance Instructor will follow for Discharge Planning - interventions as needed 4. Anticipated level of care at discharge 5. Planned Discharge Disposition Saturnino Kennedy RN [facility] * Plan of Care - Eric Valdez [...] and optimal renal function maintained Outcome: Ongoing [facility] * Perioperative Nursing Note - Alida Larry RN - 10/03/2024 11:[address] Martínez with neuro on-call updated with [...] Pt updated on patient and boarding status [facility] * Perioperative Nursing Note - Alida Larry RN - 10/03/2024 10:[address] Wayne at bedside to evaluate arterial line [facility] * Perioperative Nursing Note - Alida Larry RN - 10/03/2024 9:35 AM INSTRUCTOR OF NURSING Neuro pager team contacted regarding continued MAP issues. Orders received. [facility] * Perioperative Nursing Note - Alida Larry RN - 10/03/2024 8:42 AM INSTRUCTOR OF NURSING Patient repositioned. Armboard placed to attempt to maintain arterial BP. Line quite positional andvaries with non-invasive pressure. [facility] * Perioperative Nursing Note - Meliza Koch RN - 10/03/2024 5:26 AM CST Mr. Delgado slept soundly through the night, but was A&O x 4 on waking. His bending shed worker were 5/5 bilaterally. His plantar flexion improved throughout the night. From 2200 to 0600, his plantar flexion LLE went from 3+/5+ to 5+/5+, and his RLE went from 1+/5+ to 2-3+/5+. His dorsiflexion LLE went from 3+/5+ to 5+/5+, and his RLE remained weak at 1+/5+. Phenylephrine was as high as 0.9mcg/kg/min to sustain MAP goal of >110. [facility] * Brief Op Note - Wild Perez MD - 10/02/2024 3:26 PM CST Operative Progress Note Surgical Team: Surgeons and Role: * James Robles MD - Primary * Wild Perez MD - Resident - Assisting * Meghan Major DO - Fellow Anesthesiologist: Marimar Carr MD PhD Produce Clerk: Vance Morales MD Hospital Administrator: Timo Bonilla RN Hospital Administrator Relief: Gabriela Sullivan RN Scrub Relief: Rae Starr RN Scrub: Joyce Zhou RN Sticker Machine Operator: Dejan Velásquez [facility] Scrub: May Carroll RN DATE OF [...] James Robles MD at 10/03/2024 8:13 AM INSTRUCTOR OF NURSING [facility]SING [facility] * Op Note - James Robles MD - 10/02/2024 9:18 AM CST Surgeon: James Robles MD Card Writer Hand: Satish Major DO Preoperative diagnosis: Dorsal arachnoid [...] components of the procedure. Please note that SpineFellow Dr. Major was present for all critical components of the procedure as captain assistant and participated specifically with the revision laminectomy and intradural arachnoid web/cystic incision and lysis of adhesions. Please note that her expert assistance was necessary given the lack of availability of a qualified resident. [facility] documented in this encounter Plan of Treatment Pending Results Name Type Priority Associated Diagnoses Date /Time Hepatic function panel Lab Routine 8:12 PM INSTRUCTOR OF NURSING Scheduled Orders Name Type Priority Associated Diagnoses Order Schedule Surgical pathology Pathology and Cytology Routine Thoracic myelopathy Release Upon Ordering for 1 Occurrences starting 10/02/2024 Hepatic function panel Lab Routine Once for 1 Occurrences starting 10/13/2024 until 10/13/2024 documented as of this encounter Procedures Procedure Name Priority Date/Time Associated Diagnosis Comments EGFR Routine 10/13/2024 8:12 PM INSTRUCTOR OF NURSING PROTIME-INR STAT 10/13/2024 8:12 PM INSTRUCTOR OF NURSING CBC WITHOUT DIFFERENTIAL Routine 10/13/2024 8:12 PM INSTRUCTOR OF NURSING HEPATIC FUNCTION PANEL Routine 8:12 PM INSTRUCTOR OF NURSING BASIC METABOLIC PANEL Routine 10/13/2024 8:12 PM INSTRUCTOR OF NURSING PEP THERAPY Routine 10/13/2024 12:00 PM INSTRUCTOR OF NURSING US VEIN DUPLEX LOWER EXTREMITY BILATERAL COMPLETE IP Routine 10/13/2024 9:43 AM INSTRUCTOR OF NURSING APTT STAT 10/13/2024 6:24 AM INSTRUCTOR OF NURSING PEP THERAPY Routine 10/13/2024 6:01 AM INSTRUCTOR OF NURSING EGFR Routine 10/12/2024 9:40 PM INSTRUCTOR OF NURSING APTT Routine 10/12/2024 9:40 PM INSTRUCTOR OF NURSING CBC WITHOUT DIFFERENTIAL Routine 10/12/2024 9:40 PM INSTRUCTOR OF NURSING BASIC METABOLIC PANEL Routine 10/12/2024 9:40 PM INSTRUCTOR OF NURSING PEP THERAPY Routine 10/12/2024 6:00 PM INSTRUCTOR OF NURSING PEP THERAPY Routine 10/12/2024 12:00 PM INSTRUCTOR OF NURSING APTT STAT 10/12/2024 6:21 AM INSTRUCTOR OF NURSING PEP THERAPY Routine 10/12/2024 6:01 AM INSTRUCTOR OF NURSING APTT STAT 10/12/2024 12:54 AM INSTRUCTOR OF NURSING EGFR Routine 10/11/2024 9:52 PM INSTRUCTOR OF NURSING CBC WITHOUT DIFFERENTIAL Routine 10/11/2024 9:52 PM INSTRUCTOR OF NURSING BASIC METABOLIC PANEL Routine 10/11/2024 9:52 PM INSTRUCTOR OF NURSING PEP THERAPY Routine 10/11/2024 6:00 PM INSTRUCTOR OF NURSING APTT STAT 10/11/2024 5:30 PM INSTRUCTOR OF NURSING PEP THERAPY Routine 10/11/2024 12:00 PM INSTRUCTOR OF NURSING PEP THERAPY Routine 10/11/2024 6:01 AM INSTRUCTOR OF NURSING PEP THERAPY Routine 10/11/2024 12:00 AM INSTRUCTOR OF NURSING EGFR Routine 10/10/2024 8:04 PM INSTRUCTOR OF NURSING APTT STAT 10/10/2024 8:04 PM INSTRUCTOR OF NURSING APTT STAT 10/10/2024 8:04 PM INSTRUCTOR OF NURSING PROTIME-INR STAT 10/10/2024 8:04 PM INSTRUCTOR OF NURSING CBC WITHOUT DIFFERENTIAL Routine 10/10/2024 8:04 PM INSTRUCTOR OF NURSING BASIC METABOLIC PANEL Routine 10/10/2024 8:04 PM INSTRUCTOR OF NURSING PEP THERAPY Routine 10/10/2024 12:00 PM INSTRUCTOR OF NURSING CBC WITHOUT DIFFERENTIAL STAT 10/10/2024 11:51 AM INSTRUCTOR OF NURSING APTT STAT 10/10/2024 11:36 AM INSTRUCTOR OF NURSING PROTIME-INR STAT 10/10/2024 11:36 AM INSTRUCTOR OF NURSING PEP THERAPY Routine 10/10/2024 6:01 AM INSTRUCTOR OF NURSING EGFR Routine 10/10/2024 3:19 AM INSTRUCTOR OF NURSING CBC WITHOUT DIFFERENTIAL Routine 10/10/2024 3:19 AM INSTRUCTOR OF NURSING BASIC METABOLIC PANEL Routine 10/10/2024 3:19 AM INSTRUCTOR OF NURSING PEP THERAPY Routine 10/10/2024 12:00 AM INSTRUCTOR OF NURSING POCT GLUCOSE DEVICE Routine 10/09/2024 8 :41 PM INSTRUCTOR OF NURSING PEP THERAPY Routine 10/09/2024 6:00 PM INSTRUCTOR OF NURSING US VEIN DUPLEX LOWER EXTREMITY BILATERAL COMPLETE ED Urgent/IP Urgent 10/09/2024 10:08 AM INSTRUCTOR OF NURSING XR CHEST 1 VIEW IP Routine 10/09/2024 7:55 AM INSTRUCTOR OF NURSING PEP THERAPY Routine 10/09/2024 6:01 AM INSTRUCTOR OF NURSING PEP THERAPY Routine 10/09/2024 12:00 AM INSTRUCTOR OF NURSING EGFR Timed 10/08/2024 10:15 PM INSTRUCTOR OF NURSING CBC WITHOUT DIFFERENTIAL Routine 10/08/2024 10:15 PM INSTRUCTOR OF NURSING PHOSPHORUS Timed 10/08/2024 10:15 PM INSTRUCTOR OF NURSING MAGNESIUM Timed 10/08/2024 10:15 PM INSTRUCTOR OF NURSING COMPREHENSIVE METABOLIC PANEL Timed 10/08/2024 10:15 PM INSTRUCTOR OF NURSING PEP THERAPY Routine 10/08/2024 6:00 PM INSTRUCTOR OF NURSING PEP THERAPY Routine 10/08/2024 12:00 PM INSTRUCTOR OF NURSING TROPONIN I HIGH-SENSITIVITY STAT 10/08/2024 11:36 AM INSTRUCTOR OF NURSING LACTATE Timed 10/08/2024 8:38 AM INSTRUCTOR OF NURSING PEP THERAPY Routine 10/08/2024 6:00 AM INSTRUCTOR OF NURSING EGFR Routine 10/07/2024 10:19 PM INSTRUCTOR OF NURSING CBC WITHOUT DIFFERENTIAL Routine 10/07/2024 10:19 PM INSTRUCTOR OF NURSING BASIC METABOLIC PANEL Routine 10/07/2024 10:19 PM INSTRUCTOR OF NURSING LACTATE, WHOLE BLOOD Timed 10/07/2024 9:09 AM INSTRUCTOR OF NURSING URINALYSIS AND REFLEX TO MICROSCOPIC AND CULTURE Routine 10/07/2024 5:37 AM INSTRUCTOR OF NURSING BLOOD CULTURE STAT 10/07/2024 5:37 AM INSTRUCTOR OF NURSING BLOOD CULTURE STAT 10/07/2024 5:37 AM INSTRUCTOR OF NURSING URINALYSIS, MICROSCOPIC ONLY Routine 10/07/2024 5:37 AM INSTRUCTOR OF NURSING XR CHEST 1 VIEW IP Routine 10/07/2024 5:18 AM INSTRUCTOR OF NURSING PEP THERAPY Routine 10/07/2024 12:00 AM INSTRUCTOR OF NURSING LACTATE, WHOLE BLOOD Routine 10/06/2024 9:30 PM INSTRUCTOR OF NURSING EGFR Routine 10/06/2024 9:16 PM INSTRUCTOR OF NURSING CBC WITHOUT DIFFERENTIAL Routine 10/06/2024 9:16 PM INSTRUCTOR OF NURSING BASIC METABOLIC PANEL Routine 10/06/2024 9:16 PM INSTRUCTOR OF NURSING PEP THERAPY Routine 10/06/2024 6:00 PM INSTRUCTOR OF NURSING PEP THERAPY Routine 10/06/2024 12:00 PM INSTRUCTOR OF NURSING PEP THERAPY Routine 10/06/2024 6:01 AM INSTRUCTOR OF NURSING EGFR Routine 10/05/2024 10:43 PM INSTRUCTOR OF NURSING LACTATE, WHOLE BLOOD Routine 10/05/2024 10:43 PM INSTRUCTOR OF NURSING CBC WITHOUT DIFFERENTIAL Routine 10/05/2024 10:43 PM INSTRUCTOR OF NURSING BASIC METABOLIC PANEL Routine 10/05/2024 10:43 PM INSTRUCTOR OF NURSING PEP THERAPY Routine 10/05/2024 6:12 PM INSTRUCTOR OF NURSING PEP THERAPY Routine 10/05/2024 6:12 PM INSTRUCTOR OF NURSING TROPONIN I HIGH-SENSITIVITY Routine 10/04/2024 8:49 PM INSTRUCTOR OF NURSING CALCIUM,IONIZED, WHOLE BLOOD Routine 10/04/2024 8:49 PM INSTRUCTOR OF NURSING EGFR Routine 10/04/2024 8:49 PM INSTRUCTOR OF NURSING DIFFERENTIAL AUTO Routine 10/04/2024 8:4 9 PM INSTRUCTOR OF NURSING CBC WITH AUTO DIFFERENTIAL Routine 10/04/2024 8:49 PM INSTRUCTOR OF NURSING LACTATE, WHOLE BLOOD Routine 10/04/2024 8:49 PM INSTRUCTOR OF NURSING BASIC METABOLIC PANEL Routine 10/04/2024 8:49 PM INSTRUCTOR OF NURSING URINALYSIS AND REFLEX TO MICROSCOPIC AND CULTURE STAT 10/04/2024 1:30 PM INSTRUCTOR OF NURSING URINALYSIS, MICROSCOPIC ONLY STAT 10/04/2024 1:30 PM INSTRUCTOR OF NURSING LACTATE, WHOLE BLOOD STAT 10/04/2024 12:12 PM INSTRUCTOR OF NURSING TROPONIN I HIGH-SENSITIVITY 2-HOUR Timed 10/04/2024 12:06 PM INSTRUCTOR OF NURSING INFLUENZA A/B, RSV, AND COVID-19 PCR Routine 10/04/2024 9:06 AM INSTRUCTOR OF NURSING TROPONIN I HIGH-SENSITIVITY SERIES (BASELINE, 2HR, 4HR, 6HR) Routine 10/04/2024 9:06 AM INSTRUCTOR OF NURSING LACTATE STAT 10/04/2024 9:06 AM INSTRUCTOR OF NURSING CRITICAL RESULT CALLBACK CHEMISTRY STAT 10/04/2024 9:06 AM INSTRUCTOR OF NURSING EGFR Routine 10/03/2024 10:36 PM INSTRUCTOR OF NURSING BASIC METABOLIC PANEL Routine 10/03/2024 10:36 PM INSTRUCTOR OF NURSING DIFFERENTIAL AUTO Routine 10/03/2024 8:3 0 PM INSTRUCTOR OF NURSING CBC WITH AUTO DIFFERENTIAL Routine 10/03/2024 8:30 PM INSTRUCTOR OF NURSING EGFR STAT 10/03/2024 8:25 PM INSTRUCTOR OF NURSING BASIC METABOLIC PANEL STAT 10/03/2024 8:25 PM INSTRUCTOR OF NURSING ECG 12-LEAD Routine 10/03/2024 2:19 PM INSTRUCTOR OF NURSING POCT GLUCOSE DEVICE Routine 10/03/2024 2 :07 PM INSTRUCTOR OF NURSING EGFR Routine 10/03/2024 4:58 AM INSTRUCTOR OF NURSING DIFFERENTIAL AUTO Routine 10/03/2024 4:5 8 AM INSTRUCTOR OF NURSING CBC WITH AUTO DIFFERENTIAL Routine 10/03/2024 4:58 AM INSTRUCTOR OF NURSING BASIC METABOLIC PANEL Routine 10/03/2024 4:58 AM INSTRUCTOR OF NURSING XR CHEST 1 VIEW IP Routine 10/02/2024 9:08 PM INSTRUCTOR OF NURSING EGFR STAT 10/02/2024 4:01 PM INSTRUCTOR OF NURSING DIFFERENTIAL AUTO STAT 10/02/2024 4:0 1 PM INSTRUCTOR OF NURSING CBC WITH AUTO DIFFERENTIAL STAT 10/02/2024 4:01 PM INSTRUCTOR OF NURSING APTT STAT 10/02/2024 4:01 PM INSTRUCTOR OF NURSING PROTIME-INR STAT 10/02/2024 4:01 PM INSTRUCTOR OF NURSING PHOSPHORUS STAT 10/02/2024 4:01 PM INSTRUCTOR OF NURSING MAGNESIUM STAT 10/02/2024 4:01 PM INSTRUCTOR OF NURSING COMPREHENSIVE METABOLIC PANEL STAT 10/02/2024 4:01 PM INSTRUCTOR OF NURSING POC BLOOD GAS AND CHEMISTRIES, ARTERIAL Routine 10/02/2024 2:30 PM INSTRUCTOR OF NURSING FL FLUOROSCOPY < 1 HOUR IP Routine 10/02/2024 2:00 PM INSTRUCTOR OF NURSING POC BLOOD GAS AND CHEMISTRIES, ARTERIAL Routine 10/02/2024 10:43 AM INSTRUCTOR OF NURSING SPINAL CORD MONITORING 7:29 AM INSTRUCTOR OF NURSING Thoracic myelopathy Case Notes [email or web address] Celine via email add Dr. David HEBERT LAMINECTOMY THORACIC DECOMPRESSION 10/02/2024 7:29 AM INSTRUCTOR OF NURSING Thoracic myelopathy Case Notes [email or web address] Celine via email add Dr. David HEBERT FUSION SPINAL - POSTERIOR LUMBAR/THORACIC WITH INSTRUMENTATION 10/02/2024 7:29 AM INSTRUCTOR OF NURSING Thoracic myelopathy Case Notes [email or web address] Celine via email add Dr. David HEBERT TYPE AND SCREEN STAT 10/02/2024 6:18 AM INSTRUCTOR OF NURSING documented in this encounter Results * (ABNORMAL) Hepatic function panel (10/13/2024 8:12 PM INSTRUCTOR OF NURSING) Bilirubin, total 0.2 0.1 - 1.2 mg/dL Bilirubin, direct <0.2 0.1 - 0.3 mg/dL [facility] Protein, pl 5.8(L) 6.5 - 8.5 g/dL [facility] Albumin 3.4(L) 3.5 - 5.0 g/dL [facility] Alk phos 59 40 - 130 Units/L [facility] ALT 28 7 - 55 Units/L [facility] AST 26 10 - 50 Units/L [facility] Comment:Hemolyzed; result ma y be falsely elevated Blood 10/13/2024 8:12 PM INSTRUCTOR OF NURSING 10/13/2024 8:23 PM INSTRUCTOR OF NURSING us James Robles MD LAB BLOOD ORDERABLES Final Resu lt [facility] Department [place] [address] * eGFR (10/13/2024 8:12 PM INSTRUCTOR OF NURSING) eGFR 60 >=60 mL/min/1. 73 m2 Comment: [...] last reviewed 2021. Blood 10/13/2024 8:12 PM INSTRUCTOR OF NURSING 10/13/2024 8:37 PM INSTRUCTOR OF NURSING James Robles MD LAB BLOOD ORDERABLES Final Resu lt Performing Organization Address [facility] de Phone Number [facility] Department [place] [address] * Protime-INR (10/13/2024 8:12 PM INSTRUCTOR OF NURSING) PT 11.5 9.7 - 13.0 sec INR 1.06 0.90 - 1.20 [facility] Comment: Interpretive data Oral anticoagulant therapeutic ranges: Venous thromboembolism prophylaxis or treatment: 2.0-3.0 CARDIOLOGY Standard range: 2.0-3.0 High-intensity range: 2.5-3.5 Refer to indication-specific guidelines for appropriate target ranges for prosthetic heart valve replacement. Current interpretive data was last revised on 2019. Blood 10/13/2024 8:12 PM INSTRUCTOR OF NURSING 10/13/2024 8:32 PM INSTRUCTOR OF NURSING Narrative [facility] - 10/13/2024 8:38 PM INSTRUCTOR OF NURSING Baseline prior to apixaban initiation. Result [facility] Meghan Carranza NP LAB BLOOD ORDERABLES Fin al Result Performing Organization Address [facility] de Phone Number [facility] Department [place] [address] * (ABNORMAL) CBC without differential (10/13/2024 8:12 PM INSTRUCTOR OF NURSING) WBC 17.1(H) 3.8 - 9.9 K/cumm Hgb 12.1(L) 13.0 - 17.5 g/dL [facility] Hct 37.0(L) 38.9 - 50.3 % [facility] Plt 214 150 - 400 K/cumm [facility] MPV 10.1 9.1 - 12.3 fL [facility] RBC 3.76(L) 4.30 - 5.80 M/cumm [facility] MCV 98.4(H) 81.3 - 96.4 fL [facility] MCH 32.2 27.1 - 33.3 pg [facility] MCHC 32.7 32.3 - 35.7 g/dL [facility] RDW CV 14.6 11.1 - 14.9 % [facility] RDW SD 52.2(H) 35.7 - 48.1 fL [facility] NRBC abs 0.00 0.00 - 0.01 K/cumm [facility] Blood 10/13/2024 8:12 PM INSTRUCTOR OF NURSING 10/13/2024 8:26 PM INSTRUCTOR OF NURSING Maria Isabel Unger NP LAB BLOOD ORDERABLES Final Result [facility] Department [place] [address] * (ABNORMAL) Basic metabolic panel (10/13/2024 8:12 PM INSTRUCTOR OF NURSING) Sodium 140 135 - 145 mmol/L Potassium, pl 4.7 3.3 - 4.9 mmol/L [facility] Comment:Hemolyzed; Potassium value may be falsely elevated by as much as 0.3-0.5 mmol/L. Suggest redraw and reanalysis. Chloride 107 97 - 110 mmol/L [facility] CO2 23 22 - 32 mmol/L [facility] Anion gap 10 2 - 15 mmol/L [facility] BUN 26(H) 6 - 25 mg/dL [facility] Creatinine 1.25 0.80 - 1.30 mg/dL [facility] Glucose 96 70 - 199 mg/dL [facility] Comment: Interpretive Data Fasting glucose [...] 2022. Calcium 8.9 8.5 - 10.3 mg/dL [facility] Blood 10/13/2024 8:12 PM INSTRUCTOR OF NURSING 10/13/2024 8:23 PM INSTRUCTOR OF NURSING us James Robles MD LAB BLOOD ORDERABLES Final Resu lt [facility] Department [place] [address] * US Vein Duplex Lower Extremity Bilateral Complete (10/13/2024 9:43 AM INSTRUCTOR OF NURSING) Anatomical Region Laterality Modality Vascular Bilateral Ultrasound 10/13/2024 9:05 AM INSTRUCTOR OF NURSING Narrative 10/13/2024 1:52 PM INSTRUCTOR OF NURSING [facility] [employer] [facility] - Department of Vascular Surgery, Vascular Laboratory [address] [place] [id number] Lower Extremity Venous Ultrasound Report Patient Name: LILI DELGADO F : 1950 (74y ) Study Date: 10/13/2024 9:05:32 AM Gender: M Tech: Location: [id number] Ref Provider: MEGHAN CARRANZA Quality: Adequate Order [...] thrombus size per hematology - FINDINGS: Performing Refinery Operator Assistant: Jessica Aguilar RVT. Right: Duplex scan reveals [...] on the above date to Meghan Carranza PIPE ORGAN BUILDER at 9:40am. CONCLUSIONS: 1. There is acute [...] Tyshawn Mullins MD FACS 10/13/2024 1:52:11 PM INSTRUCTOR OF NURSING Procedure Note Tyshawn Mullins MD - 10/13/2024 [facility] [employer] [facility] - Department of Vascular Surgery,Vascular Laboratory [address] [place] [address] Lower Extremity Venous Ultrasound Report Patient Name: LILI DELGADO F : 1950 (74y ) Study Date: 10/13/2024 9:05:32 AM Gender: M Tech: SAGAR Location: [id number] Ref Provider: MEGHAN CARRANZA Quality: Adequate Order [...] thrombus size per hematology - FINDINGS: Performing Refinery Operator Assistant: Jessica Aguilar RVT. Right: Duplex scan reveals [...] Tyshawn Mullins MD FACS 10/13/2024 1:52:11 PM INSTRUCTOR OF NURSING us Meghan Carranza NP IMG US PROCEDURES Final Result * (ABNORMAL) aPTT (10/13/2024 6:24 AM INSTRUCTOR OF NURSING) aPTT 55(H) 28 - 38 sec Comment: Interpretive Data Heparin therapeutic range: 66.0 - 100.0 seconds. Range based on correlation with therapeutic heparin activity range of 0.3 - 0.7 Units/mL. Current interpretive data was last revised on 2023. Blood 10/13/2024 6:24 AM INSTRUCTOR OF NURSING 10/13/2024 6:52 AM INSTRUCTOR OF NURSING Narrative [facility] - 10/13/2024 7:17 AM INSTRUCTOR OF NURSING STAT PTT timing: - Draw 6 hours [...] BLOOD ORDERABLES Final [facility] Department [place] [address] * (ABNORMAL) eGFR (10/12/2024 9:40 PM INSTRUCTOR OF NURSING) eGFR 49(L) >=60 mL/min/1. 73 m2 Comment: [...] last reviewed 2021. Blood 10/12/2024 9:40 PM INSTRUCTOR OF NURSING 10/12/2024 11:24 PM INSTRUCTOR OF NURSING James Robles MD LAB BLOOD ORDERABLES Final Resu lt Performing Organization Address [facility] Co de Phone Number [facility] [place] [address] * (ABNORMAL) aPTT (10/12/2024 9:40 PM INSTRUCTOR OF NURSING) aPTT 57(H) 28 - 38 sec Comment: Interpretive Data Heparin therapeutic range: 66.0 - 100.0 seconds. Range based on correlation with therapeutic heparin activity range of 0.3 - 0.7 Units/mL. Current interpretive data was last revised on 2023. Blood 10/12/2024 9:40 PM INSTRUCTOR OF NURSING 10/12/2024 11:26 PM INSTRUCTOR OF NURSING Result [facility] Meghan Carranza PIPE ORGAN BUILDER LAB BLOOD ORDERABLES Fin al Result Performing Organization Address [facility] Co de Phone Number [facility] Department [place] [address] * (ABNORMAL) CBC without differential (10/12/2024 9:40 PM INSTRUCTOR OF NURSING) WBC 13.9(H) 3.8 - 9.9 K/cumm Hgb 11.4(L) 13.0 - 17.5 g/dL [facility] Hct 35.0(L) 38.9 - 50.3 % [facility] Plt 232 150 - 400 K/cumm [facility] MPV 10.5 9.1 - 12.3 fL [facility] RBC 3.59(L) 4.30 - 5.80 M/cumm [facility] MCV 97.5(H) 81.3 - 96.4 fL [facility] MCH 31.8 27.1 - 33.3 pg [facility] MCHC 32.6 32.3 - 35.7 g/dL [facility] RDW CV 14.6 11.1 - 14.9 % [facility] RDW SD 51.2(H) 35.7 - 48.1 fL [facility] NRBC abs 0.00 0.00 - 0.01 K/cumm [facility] Blood 10/12/2024 9:40 PM INSTRUCTOR OF NURSING 10/12/2024 11:24 PM INSTRUCTOR OF NURSING Maria Isabel Unger NP LAB BLOOD ORDERABLES Final Result [facility] Department [place] [address] * (ABNORMAL) Basic metabolic panel (10/12/2024 9:40 PM INSTRUCTOR OF NURSING) Sodium 144 135 - 145 mmol/L Potassium, pl 4.4 3.3 - 4.9 mmol/L [facility] Chloride 109 97 - 110 mmol/L [facility] CO2 27 22 - 32 mmol/L [facility] Anion gap 8 2 - 15 mmol/L [facility] BUN 28(H) 6 - 25 mg/dL [facility] Creatinine 1.48(H) 0.80 - 1.30 mg/dL [facility] Glucose 110 70 - 199 mg/dL [facility] Comment: Interpretive Data Fasting glucose [...] 2022. Calcium 8.4(L) 8.5 - 10.3 mg/dL [facility] Blood 10/12/2024 9:40 PM INSTRUCTOR OF NURSING 10/12/2024 11:24 PM INSTRUCTOR OF NURSING James Robles MD LAB BLOOD ORDERABLES Final Resu lt Performing Organization Address [facility] Co de Phone Number [facility] [place] [address] * (ABNORMAL) aPTT (10/12/2024 6:21 AM INSTRUCTOR OF NURSING) [facility] aPTT 51(H) 28 - 38 sec Comment: Interpretive Data Heparin therapeutic range: 66.0 - 100.0 seconds. Range based on correlation with therapeutic heparin activity range of 0.3 - 0.7 Units/mL. Current interpretive data was last revised on 2023. Blood 10/12/2024 6:21 AM INSTRUCTOR OF NURSING 10/12/2024 6:49 AM INSTRUCTOR OF NURSING Narrative [facility] - 10/12/2024 6:56 AM INSTRUCTOR OF NURSING STAT PTT timing: - Draw 6 hours [...] ORDERABLES Final Resu lt Performing Organization Address [facility]/ZIP Co de Phone Number [facility] [place] [address] * (ABNORMAL) aPTT (10/12/2024 12:54 AM INSTRUCTOR OF NURSING) Pathologist [facility] aPTT 51(H) 28 - 38 sec Comment: Interpretive Data Heparin therapeutic range: 66.0 - 100.0 seconds. Range based on correlation with therapeutic heparin activity range of 0.3 - 0.7 Units/mL. Current interpretive data was last revised on 2023. Blood 10/12/2024 12:5 4 AM INSTRUCTOR OF NURSING 10/12/2024 1:09 AM INSTRUCTOR OF NURSING Narrative RE[facility]LDO [facility] - 10/12/2024 1:17 AM INSTRUCTOR OF NURSING STAT PTT timing: - Draw 6 hours [...] BLOOD ORDERABLES Final Resu lt [facility] Department [place] [address] * (ABNORMAL) eGFR (10/11/2024 9:52 PM INSTRUCTOR OF NURSING) Pathologist [facility] eGFR 42(L) >=60 mL/min/1. 73 m2 Comment: [...] last reviewed 2021. Blood 10/11/2024 9:52 PM INSTRUCTOR OF NURSING 10/11/2024 11:34 PM INSTRUCTOR OF NURSING us James Robles MD LAB BLOOD ORDERABLES Final Resu lt [facility] Department [place] [address] * (ABNORMAL) CBC without differential (10/11/2024 9:52 PM INSTRUCTOR OF NURSING) WBC 15.3(H) 3.8 - 9.9 K/cumm Hgb 10.9(L) 13.0 - 17.5 g/dL [facility] Hct 33.4(L) 38.9 - 50.3 % [facility] Plt 234 150 - 400 K/cumm [facility] MPV 10.4 9.1 - 12.3 fL [facility] RBC 3.47(L) 4.30 - 5.80 M/cumm [facility] MCV 96.3 81.3 - 96.4 fL [facility] MCH 31.4 27.1 - 33.3 pg [facility] MCHC 32.6 32.3 - 35.7 g/dL [facility] RDW CV 14.3 11.1 - 14.9 % [facility] RDW SD 49.6(H) 35.7 - 48.1 fL [facility] NRBC abs 0.00 0.00 - 0.01 K/cumm [facility] Blood 10/11/2024 9:52 PM INSTRUCTOR OF NURSING 10/11/2024 11:34 PM INSTRUCTOR OF NURSING us Maria Isabel Unger NP LAB BLOOD ORDERABLES Final Result Performing Organization Address City/[facility]/ZIP Co de Phone Number [facility] Department [place] [address] * (ABNORMAL) Basic metabolic panel (10/11/2024 9:52 PM INSTRUCTOR OF NURSING) Sodium 141 135 - 145 mmol/L Potassium, pl 4.6 3.3 - 4.9 mmol/L [facility] Chloride 107 97 - 110 mmol/L [facility] CO2 27 22 - 32 mmol/L [facility] Anion gap 7 2 - 15 mmol/L [facility] BUN 35(H) 6 - 25 mg/dL [facility] Creatinine 1.68(H) 0.80 - 1.30 mg/dL [facility] Glucose 115 70 - 199 mg/dL [facility] Comment: Interpretive Data Fasting glucose [...] 2022. Calcium 8.1(L) 8.5 - 10.3 mg/dL [facility] Blood 10/11/2024 9:52 PM INSTRUCTOR OF NURSING 10/11/2024 11:34 PM INSTRUCTOR OF NURSING James Robles MD LAB BLOOD ORDERABLES Final Resu lt Performing Organization Address City/[facility] de Phone Number [facility] Department [place] [address] * aPTT (10/11/2024 5:30 PM INSTRUCTOR OF NURSING) [facility] aPTT 33 28 - 38 sec Comment: Interpretive Data Heparin therapeutic range: 66.0 - 100.0 seconds. Range based on correlation with therapeutic heparin activity range of 0.3 - 0.7 Units/mL. Current interpretive data was last revised on 2023. Blood 10/11/2024 5:30 PM INSTRUCTOR OF NURSING 10/11/2024 5:59 PM INSTRUCTOR OF NURSING Narrative RE[facility]LDO [facility] - 10/11/2024 6:07 PM INSTRUCTOR OF NURSING STAT PTT timing: - Draw 6 hours [...] ORDERABLES Final Resu lt Performing Organization Address [facility] Co de Phone Number [facility] Department [place] [address] * (ABNORMAL) eGFR (10/10/2024 8:04 PM INSTRUCTOR OF NURSING) [facility] eGFR 45(L) >=60 mL/min/1. 73 m2 Comment: [...] last reviewed 2021. Blood 10/10/2024 8:04 PM INSTRUCTOR OF NURSING 10/10/2024 8:34 PM INSTRUCTOR OF NURSING James Robles MD LAB BLOOD ORDERABLES Final Resu lt Performing Organization Address City/[facility] Co de Phone Number [facility] Department [place] [address] * (ABNORMAL) aPTT (10/10/2024 8:04 PM INSTRUCTOR OF NURSING) aPTT 22(L) 28 - 38 sec Comment: Interpretive Data Heparin therapeutic range: 66.0 - 100.0 seconds. Range based on correlation with therapeutic heparin activity range of 0.3 - 0.7 Units/mL. Current interpretive data was last revised on 2023. Blood 10/10/2024 8:04 PM INSTRUCTOR OF NURSING 10/10/2024 8:24 PM INSTRUCTOR OF NURSING James Robles MD LAB BLOOD ORDERABLES Final [facility] [place] [address] * Protime-INR (10/10/2024 8:04 PM INSTRUCTOR OF NURSING) PT 12.0 9.7 - 13.0 sec INR 1.11 0.90 - 1.20 [facility] Comment: Interpretive data Oral anticoagulant therapeutic ranges: Venous thromboembolism prophylaxis or treatment: 2.0-3.0 CARDIOLOGY Standard range: 2.0-3.0 High-intensity range: 2.5-3.5 Refer to indication-specific guidelines for appropriate target ranges for prosthetic heart valve replacement. Current interpretive data was last revised on 2019. Blood 10/10/2024 8:04 PM INSTRUCTOR OF NURSING 10/10/2024 8:24 PM INSTRUCTOR OF NURSING us James Robles MD LAB BLOOD ORDERABLES Final Resu lt [facility] Department [place] [address] * (ABNORMAL) aPTT (10/10/2024 8:04 PM INSTRUCTOR OF NURSING) aPTT 22(L) 28 - 38 sec Comment: Interpretive Data Heparin therapeutic range: 66.0 - 100.0 seconds. Range based on correlation with therapeutic heparin activity range of 0.3 - 0.7 Units/mL. Current interpretive data was last revised on 2023. Blood 10/10/2024 8:04 PM INSTRUCTOR OF NURSING 10/10/2024 8:24 PM INSTRUCTOR OF NURSING Narrative [facility] - 10/10/2024 8:33 PM INSTRUCTOR OF NURSING STAT PTT timing: - Draw 6 hours [...] ORDERABLES Final Resu lt Performing Organization Address [facility]/ZIP Co de Phone Number [facility] Department [place] [address] * (ABNORMAL) CBC without differential (10/10/2024 8:04 PM INSTRUCTOR OF NURSING) Pathologist [facility] WBC 17.1(H) 3.8 - 9.9 K/cumm Hgb 11.6(L) 13.0 - 17.5 g/dL [facility] Hct 34.3(L) 38.9 - 50.3 % [facility] Plt 260 150 - 400 K/cumm [facility] MPV 10.3 9.1 - 12.3 fL [facility] RBC 3.62(L) 4.30 - 5.80 M/cumm [facility] MCV 94.8 81.3 - 96.4 fL [facility] MCH 32.0 27.1 - 33.3 pg [facility] MCHC 33.8 32.3 - 35.7 g/dL [facility] RDW CV 14.2 11.1 - 14.9 % [facility] RDW SD 48.3(H) 35.7 - 48.1 fL [facility] NRBC abs 0.00 0.00 - 0.01 K/cumm [facility] Blood 10/10/2024 8:04 PM INSTRUCTOR OF NURSING 10/10/2024 8:34 PM INSTRUCTOR OF NURSING Maria Isabel Unger NP LAB BLOOD ORDERABLES Final Result Performing Organization Address [facility]/ZIP Co de Phone Number [facility] Department [place] [address] * (ABNORMAL) Basic metabolic panel (10/10/2024 8:04 PM INSTRUCTOR OF NURSING) Pathologist [facility] Sodium 140 135 - 145 mmol/L Potassium, pl 4.6 3.3 - 4.9 mmol/L [facility] Chloride 105 97 - 110 mmol/L [facility] CO2 24 22 - 32 mmol/L [facility] Anion gap 11 2 - 15 mmol/L [facility] BUN 32(H) 6 - 25 mg/dL [facility] Creatinine 1.59(H) 0.80 - 1.30 mg/dL [facility] Glucose 108 70 - 199 mg/dL [facility] Comment: Interpretive Data Fasting glucose [...] 2022. Calcium 8.4(L) 8.5 - 10.3 mg/dL [facility] Blood 10/10/2024 8:04 PM INSTRUCTOR OF NURSING 10/10/2024 8:34 PM INSTRUCTOR OF NURSING us James Robles MD LAB BLOOD ORDERABLES Final Resu lt [facility] Department [place] [address] * (ABNORMAL) CBC without differential (10/10/2024 11:51 AM INSTRUCTOR OF NURSING) [facility] WBC 21.0(H) 3.8 - 9.9 K/cumm Hgb 12.0(L) 13.0 - 17.5 g/dL [facility] Hct 36.7(L) 38.9 - 50.3 % [facility] Plt 272 150 - 400 K/cumm [facility] MPV 10.4 9.1 - 12.3 fL [facility] RBC 3.84(L) 4.30 - 5.80 M/cumm [facility] MCV 95.6 81.3 - 96.4 fL [facility] MCH 31.3 27.1 - 33.3 pg [facility] MCHC 32.7 32.3 - 35.7 g/dL [facility] RDW CV 14.0 11.1 - 14.9 % [facility] RDW SD 47.8 35.7 - 48.1 fL [facility] NRBC abs 0.00 0.00 - 0.01 K/cumm [facility] Blood 10/10/2024 11:5 1 AM INSTRUCTOR OF NURSING 10/10/2024 12:26 PM INSTRUCTOR OF NURSING Narrative [facility] - 10/10/2024 12:37 PM INSTRUCTOR OF NURSING Baseline prior to heparin initiation James Robles MD LAB BLOOD ORDERABLES Final Resu lt Performing Organization Address [facility] Co de Phone Number [facility] [place] [address] * (ABNORMAL) aPTT (10/10/2024 11:36 AM INSTRUCTOR OF NURSING) aPTT 23(L) 28 - 38 sec Comment: Interpretive Data Heparin therapeutic range: 66.0 - 100.0 seconds. Range based on correlation with therapeutic heparin activity range of 0.3 - 0.7 Units/mL. Current interpretive data was last revised on 2023. Blood 10/10/2024 11:3 6 AM INSTRUCTOR OF NURSING 10/10/2024 11:47 AM INSTRUCTOR OF NURSING Narrative [facility] - 10/10/2024 12:16 PM INSTRUCTOR OF NURSING Baseline prior to heparin initiation James Robles MD LAB BLOOD ORDERABLES Final Resu lt Performing Organization Address City/[facility]/ZIP Co de Phone Number [facility] [place] [address] * Protime-INR (10/10/2024 11:36 AM INSTRUCTOR OF NURSING) PT 11.3 9.7 - 13.0 sec INR 1.05 0.90 - 1.20 [facility] Comment: Interpretive data Oral anticoagulant therapeutic ranges: Venous thromboembolism prophylaxis or treatment: 2.0-3.0 CARDIOLOGY Standard range: 2.0-3.0 High-intensity range: 2.5-3.5 Refer to indication-specific guidelines for appropriate target ranges for prosthetic heart valve replacement. Current interpretive data was last revised on 2019. Blood 10/10/2024 11:3 6 AM INSTRUCTOR OF NURSING 10/10/2024 11:47 AM INSTRUCTOR OF NURSING Narrative REYNALDO [facility] - 10/10/2024 12:16 PM INSTRUCTOR OF NURSING Baseline prior to heparin initiation us James Robles MD LAB BLOOD ORDERABLES Final Resu lt [facility] Department [place] [address] * (ABNORMAL) eGFR (10/10/2024 3:19 AM INSTRUCTOR OF NURSING) eGFR 53(L) >=60 mL/min/1. 73 m2 Comment: [...] last reviewed 2021. Blood 10/10/2024 3:19 AM INSTRUCTOR OF NURSING 10/10/2024 5:57 AM INSTRUCTOR OF NURSING James Robles MD LAB BLOOD ORDERABLES Final Resu lt [facility] [place] [address] * (ABNORMAL) CBC without differential (10/10/2024 3:19 AM INSTRUCTOR OF NURSING) WBC 18.6(H) 3.8 - 9.9 K/cumm Hgb 11.7(L) 13.0 - 17.5 g/dL [facility] Hct 35.3(L) 38.9 - 50.3 % [facility] Plt 234 150 - 400 K/cumm [facility] MPV 10.4 9.1 - 12.3 fL [facility] RBC 3.69(L) 4.30 - 5.80 M/cumm [facility] MCV 95.7 81.3 - 96.4 fL [facility] MCH 31.7 27.1 - 33.3 pg [facility] MCHC 33.1 32.3 - 35.7 g/dL [facility] RDW CV 14.1 11.1 - 14.9 % [facility] RDW SD 48.1 35.7 - 48.1 fL [facility] NRBC abs 0.00 0.00 - 0.01 K/cumm [facility] Blood 10/10/2024 3:19 AM INSTRUCTOR OF NURSING 10/10/2024 6:01 AM INSTRUCTOR OF NURSING us Maria Isabel Unger NP LAB BLOOD ORDERABLES Final Result Performing Organization Address City/[facility]/ZIP Co de Phone Number [facility] Department [place] [address] * (ABNORMAL) Basic metabolic panel (10/10/2024 3:19 AM INSTRUCTOR OF NURSING) Sodium 141 135 - 145 mmol/L Potassium, pl 4.2 3.3 - 4.9 mmol/L [facility] Chloride 106 97 - 110 mmol/L [facility] CO2 27 22 - 32 mmol/L [facility] Anion gap 8 2 - 15 mmol/L [facility] BUN 34(H) 6 - 25 mg/dL [facility] Creatinine 1.38(H) 0.80 - 1.30 mg/dL [facility] Glucose 95 70 - 199 mg/dL [facility] Comment: Interpretive Data Fasting glucose [...] 2022. Calcium 8.5 8.5 - 10.3 mg/dL [facility] Blood 10/10/2024 3:19 AM INSTRUCTOR OF NURSING 10/10/2024 5:57 AM INSTRUCTOR OF NURSING us James Robles MD LAB BLOOD ORDERABLES Final Resu lt [facility] [place] [address] * POCT glucose (10/09/2024 8:41 PM INSTRUCTOR OF NURSING) Glucose, POC 141 70 - 199 mg/dL Blood 10/09/2024 8:41 PM INSTRUCTOR OF NURSING 10/09/2024 8:41 PM INSTRUCTOR OF NURSING James Robles MD LAB POCT ORDERABLES - DEVICE Fi nal Result REYNALDO [facility] Department [place] [address] * US Vein Duplex Lower Extremity Bilateral Complete (10/09/2024 10:08 AM INSTRUCTOR OF NURSING) Anatomical Region Laterality Modality Vascular Bilateral Ultrasound 10/09/2024 9:49 AM INSTRUCTOR OF NURSING Narrative 10/09/2024 11:51 AM INSTRUCTOR OF NURSING [facility] - Department of Vascular Surgery, Vascular Laboratory [address] [place] [id number] Lower Extremity Venous Ultrasound Report Patient Name: LILI DELGADO F : 1950 (74y ) Study Date: 10/09/2024 9:49:45 AM Gender: M Tech: AL Location: [id number] Ref Provider: OSIRIS GUILLEN ?Quality: Adequate Order [...] Pain in Leg, Right - FINDINGS: Performing Refinery Operator Assistant: Niurka Krishna RVT. Right: Duplex scan reveals [...] on the above date to Osiris Guillen NP at 10:06 am. CONCLUSIONS: 1. There [...] above. Electronically Signed By: Tyshawn Mullins MD [facility] 2024-10-09 11:50:17 INSTRUCTOR OF NURSING Procedure Note Tyshawn Mullins MD - 10/09/2024 [facility] - Department of Vascular Surgery,Vascular Laboratory [address] [place] [address] Lower Extremity Venous Ultrasound Report Patient Name: LILI DELGADO F : 1950 (74y ) Study Date: 10/09/2024 9:49:45 AM Gender: M Tech: AL Location: [id number] Ref Provider: OSIRIS GUILLEN Quality: Adequate Order [...] Pain in Leg, Right - FINDINGS: Performing Refinery Operator Assistant: Niurka Krishna RVT. Right: Duplex scan reveals [...] on the above date to Osiris Guillen NP at 10:06 am. CONCLUSIONS: 1. There [...] above. Electronically Signed By: Tyshawn Mullins MD [facility] 2024-10-09 11:50:17 INSTRUCTOR OF NURSING us Osiris Guillen NP IMG US PROCEDURES Final Result * XR Chest 1 View (10/09/2024 7:55 AM INSTRUCTOR OF NURSING) Anatomical Region Laterality Modality Body, Chest N/A Digital Radiogra phy 10/09/2024 1:25 PM INSTRUCTOR OF NURSING Impressions 10/09/2024 4:11 PM INSTRUCTOR OF NURSING 1. ??Interval increase in left lung base atelectasis. Dictated by: Gabriel Warner M.D. The radiology attending physician has personally reviewed this study, and had reviewed and/or edited this written report and agrees with it. Electronically signed by: Austin Olsen M.D. Narrative 10/09/2024 4:11 PM INSTRUCTOR OF NURSING EXAMINATION: 1 view chest radiograph History: 74-year-old [...] Electronically signed by: Austin Olsen M.D. Osiris Guillen PIPE ORGAN BUILDER IMG XR PROCEDURES Final Result * (ABNORMAL) eGFR (10/08/2024 10:15 PM INSTRUCTOR OF NURSING) eGFR 55(L) >=60 mL/min/1. 73 m2 Comment: [...] reviewed 2021. Blood 10/08/2024 10:1 5 PM INSTRUCTOR OF NURSING 10/08/2024 11:56 PM INSTRUCTOR OF NURSING Brianna Martínez PIPE ORGAN BUILDER LAB BLOOD ORDERABLES Cammy l Result Performing Organization Address City/[facility]/ZIP Co de Phone Number [facility] [place] [address] * Phosphorus (10/08/2024 10:15 PM INSTRUCTOR OF NURSING) Pathologist [facility] Phosphorus, pl 3.1 2.3 - 4.5 mg/dL Blood 10/08/2024 10:1 5 PM INSTRUCTOR OF NURSING 10/08/2024 11:56 PM INSTRUCTOR OF NURSING Brianna Martínez PIPE ORGAN BUILDER LAB BLOOD ORDERABLES Cammy l Result Performing Organization Address [facility] [place] [address] * Magnesium (10/08/2024 10:15 PM INSTRUCTOR OF NURSING) [facility] Magnesium 2.3 1.4 - 2.5 mg/dL Blood 10/08/2024 10:1 5 PM INSTRUCTOR OF NURSING 10/08/2024 11:56 PM INSTRUCTOR OF NURSING Brianna Martínez PIPE ORGAN BUILDER LAB BLOOD ORDERABLES Cammy l Result Performing Organization Address [facility] [place] [address] * (ABNORMAL) Comprehensive metabolic panel (10/08/2024 10:15 PM INSTRUCTOR OF NURSING) Pathologist [facility] Sodium 141 135 - 145 mmol/L Potassium, pl 4.6 3.3 - 4.9 mmol/L [facility] Chloride 107 97 - 110 mmol/L [facility] CO2 25 22 - 32 mmol/L [facility] Anion gap 9 2 - 15 mmol/L [facility] BUN 33(H) 6 - 25 mg/dL [facility] Creatinine 1.33(H) 0.80 - 1.30 mg/dL [facility] Glucose 108 70 - 199 mg/dL [facility] Comment: Interpretive Data Fasting glucose [...] 2022. Calcium 8.6 8.5 - 10.3 mg/dL [facility] Bilirubin, total 0.3 0.1 - 1.2 mg/dL [facility] Protein, pl 4.8(L) 6.5 - 8.5 g/dL [facility] Albumin 2.9(L) 3.5 - 5.0 g/dL [facility] Alk phos 49 40 - 130 Units/L [facility] ALT 39 7 - 55 Units/L [facility] AST 19 10 - 50 Units/L [facility] Blood 10/08/2024 10:1 5 PM INSTRUCTOR OF NURSING 10/08/2024 11:56 PM INSTRUCTOR OF NURSING Brianna Martínez PIPE ORGAN BUILDER LAB BLOOD ORDERABLES Cammy ramos Result [facility] Department [place] [address] * (ABNORMAL) CBC without differential (10/08/2024 10:15 PM INSTRUCTOR OF NURSING) WBC 19.8(H) 3.8 - 9.9 K/cumm Hgb 11.2(L) 13.0 - 17.5 g/dL [facility] Hct 32.9(L) 38.9 - 50.3 % [facility] Plt 264 150 - 400 K/cumm [facility] MPV 10.5 9.1 - 12.3 fL [facility] RBC 3.57(L) 4.30 - 5.80 M/cumm [facility] MCV 92.2 81.3 - 96.4 fL [facility] MCH 31.4 27.1 - 33.3 pg [facility] MCHC 34.0 32.3 - 35.7 g/dL [facility] RDW CV 13.7 11.1 - 14.9 % [facility] RDW SD 45.1 35.7 - 48.1 fL [facility] NRBC abs 0.02(H) 0.00 - 0.01 K/cumm [facility] Blood 10/08/2024 10:1 5 PM INSTRUCTOR OF NURSING 10/08/2024 11:57 PM INSTRUCTOR OF NURSING us Maria Isabel Unger PIPE ORGAN BUILDER LAB BLOOD ORDERABLES Final Result Performing Organization Address [facility] Co de Phone Number [facility] [place] [address] * Troponin I high-sensitivity (10/08/2024 11:36 AM INSTRUCTOR OF NURSING) Trop I hs 30 <=35 ng/L Comment: Interpretive Data For further hscTnI resources including the diagnostic algorithm and an aid in interpretation, copy and paste this link: [email or web address].testcatalog.org/show/[email or web address] Current Interpretive Data last revised 2020. Blood 10/08/2024 11:3 6 AM INSTRUCTOR OF NURSING 10/08/2024 11:44 AM INSTRUCTOR OF NURSING us Brianna Martínez PIPE ORGAN BUILDER LAB BLOOD ORDERABLES Cammy l Result Performing Organization Address [facility]/ZIP Co de Phone Number [facility] Department [place] [address] * (ABNORMAL) Lactate (10/08/2024 8:38 AM INSTRUCTOR OF NURSING) Lactate 2.9(H) 0.7 - 2.0 mmol/L Blood 10/08/2024 8:38 AM INSTRUCTOR OF NURSING 10/08/2024 11:44 AM INSTRUCTOR OF NURSING us Brianna Martínez NP LAB BLOOD ORDERABLES Cammy l Result Performing Organization Address City/[facility]/ZIP Co de Phone Number [facility] [place] [address] * eGFR (10/07/2024 10:19 PM INSTRUCTOR OF NURSING) eGFR 62 >=60 mL/min/1. 73 m2 Comment: [...] reviewed 2021. Blood 10/07/2024 10:1 9 PM INSTRUCTOR OF NURSING 10/07/2024 11:24 PM INSTRUCTOR OF NURSING us James oRbles MD LAB BLOOD ORDERABLES Final Resu lt Performing Organization Address [facility]/ZIP Co de Phone Number [facility] [place] [address] * (ABNORMAL) CBC without differential (10/07/2024 10:19 PM INSTRUCTOR OF NURSING) [facility] WBC 17.2(H) 3.8 - 9.9 K/cumm Hgb 11.4(L) 13.0 - 17.5 g/dL [facility] Hct 32.7(L) 38.9 - 50.3 % [facility] Plt 264 150 - 400 K/cumm [facility] MPV 10.6 9.1 - 12.3 fL [facility] RBC 3.58(L) 4.30 - 5.80 M/cumm [facility] MCV 91.3 81.3 - 96.4 fL [facility] MCH 31.8 27.1 - 33.3 pg [facility] MCHC 34.9 32.3 - 35.7 g/dL [facility] RDW CV 13.2 11.1 - 14.9 % [facility] RDW SD 43.6 35.7 - 48.1 fL [facility] NRBC abs 0.00 0.00 - 0.01 K/cumm [facility] Blood 10/07/2024 10:1 9 PM INSTRUCTOR OF NURSING 10/07/2024 11:24 PM INSTRUCTOR OF NURSING Maria Isabel Unger NP LAB BLOOD ORDERABLES Final Result [facility] Department [place] [address] * (ABNORMAL) Basic metabolic panel (10/07/2024 10:19 PM INSTRUCTOR OF NURSING) [facility] Sodium 142 135 - 145 mmol/L Potassium, pl 4.5 3.3 - 4.9 mmol/L [facility] Chloride 107 97 - 110 mmol/L [facility] CO2 26 22 - 32 mmol/L [facility] Anion gap 9 2 - 15 mmol/L [facility] BUN 33(H) 6 - 25 mg/dL [facility] Creatinine 1.21 0.80 - 1.30 mg/dL [facility] Glucose 140 70 - 199 mg/dL [facility] Comment: Interpretive Data Fasting glucose [...] 2022. Calcium 8.5 8.5 - 10.3 mg/dL [facility] Blood 10/07/2024 10:1 9 PM INSTRUCTOR OF NURSING 10/07/2024 11:24 PM INSTRUCTOR OF NURSING us James Robles MD LAB BLOOD ORDERABLES Final Resu lt Performing Organization Address [facility]/ZIP Co de Phone Number [facility] Department [place] [address] * (ABNORMAL) Lactate, whole blood (10/07/2024 9:09 AM INSTRUCTOR OF NURSING) Pathologist [facility] Lactate, bld 3.4(H) 0.7 - 2.0 mmol/L Blood 10/07/2024 9:09 AM INSTRUCTOR OF NURSING 10/07/2024 9:15 AM INSTRUCTOR OF NURSING us Brianna Martínez NP LAB BLOOD ORDERABLES Cammy l Result Performing Organization Address City/[facility]/ZIP Co de Phone Number [facility] Department [place] [address] * (ABNORMAL) Urinalysis, microscopic only (10/07/2024 5:37 AM INSTRUCTOR OF NURSING) WBC, ur 0-5 0 - 5 /HPF RBC, ur 11-20(A) 0 - 2 /HPF [facility] Mucous, ur Present(A) [facility] Culture Reflex Comment Reflex conditions for urine culture (WBC >10) not met. [facility] Urine 10/07/2024 5:37 AM INSTRUCTOR OF NURSING 10/07/2024 5:46 AM INSTRUCTOR OF NURSING Result [facility] James Robles MD LAB URINE ORDERABLES Final Resu lt Performing Organization Address City/[facility]/ZIP Co de Phone Number [facility] Department [place] [address] * (ABNORMAL) Urinalysis reflex to microscopic and culture Urine (10/07/2024 5:37 AM INSTRUCTOR OF NURSING) Color, ur Straw Yellow Clarity, ur Clear Clear [facility] Specific gravity, ur 1.013 1.003 - 1.030 [facility] pH, urine 7.0 [facility] Comment: Interpretive Data ? Urine pH is affected by diet, medications, systemic acid-base disturbances, and renal tubular function. ??pH may affect urinary stone formation. ??For example, urine pH below 6.0 may help reduce the tendency for calcium phosphate stones and pH greater than 6.0 may reduce the tendency for uric acid stone formation. Source: [facility] Current Interpretive Data was last revised on 2017 Protein, ur ql Negative Negative [facility] Glucose, ur ql Negative Negative [facility] Ketones, ur Negative Negative [facility] Bilirubin, ur Negative Negative [facility] Blood, ur Trace(A) Negative [facility] Urobilinogen, ur <2.0 <2.0 mg/dL [facility] Nitrite, ur Negative Negative [facility] Leukocyte esterase, ur Negative Negative [facility] UA reflex comment Reflex to microscopic UA will be performed. [facility] Urine 10/07/2024 5:37 AM INSTRUCTOR OF NURSING 10/07/2024 5:46 AM INSTRUCTOR OF NURSING James Robles MD LAB MICROBIOLOGY - GENERAL ORDE RABLES Final Result [facility] Department [place] [address] * Blood culture Blood (10/07/2024 5:37 AM INSTRUCTOR OF NURSING) Report Final Report: No growth Blood 10/07/2024 5:37 AM INSTRUCTOR OF NURSING 10/07/2024 7:00 AM INSTRUCTOR OF NURSING Narrative REYNALDO CARSON - 10/11/2024 7:00 AM INSTRUCTOR OF NURSING Collection->Peripheral 1. ?Blood cultures are incubated for [...] organism identification may be performed using the Gamgeeigene Gram-Positive Blood Culture Assay. This assay detects microbial DNA in positive blood culture broth via hybridization of target DNA to capture oligonucleotides on a microarray. This assay has been cleared by the [place] Food and Drug Administration and its performance characteristics have been verified by the [facility] Microbiology Laboratory. 5. ?For questions about this culture, contact the Microbiology Laboratory at [phone]. Interpretive data was last revised on 2020. us James Robles MD LAB MICROBIOLOGY - GENERAL RAYMOND JEFFERY Final Result REYNALDO [facility] Department [place] [address] * Blood culture Blood (10/07/2024 5:37 AM INSTRUCTOR OF NURSING) Report Final Report: No growth Blood 10/07/2024 5:37 AM INSTRUCTOR OF NURSING 10/07/2024 6:07 AM INSTRUCTOR OF NURSING Narrative REYNALDO MAHARAJ - 10/11/2024 7:00 AM INSTRUCTOR OF NURSING Collection->Peripheral 1. ?Blood cultures are incubated for [...] organism identification may be performed using the Plutora Gram-Positive Blood Culture Assay. This assay detects microbial DNA in positive blood culture broth via hybridization of target DNA to capture oligonucleotides on a microarray. This assay has been cleared by the [place] Food and Drug Administration and its performance characteristics have been verified by the [facility] Microbiology Laboratory. 5. ?For questions about this culture, contact the Microbiology Laboratory at [phone]. Interpretive data was last revised on 2020. James Robles MD LAB MICROBIOLOGY - GENERAL RAYMOND JEFFERY Final Result RE[facility]NALDO [facility] Department [place] [address] * XR Chest 1 View (10/07/2024 5:18 AM INSTRUCTOR OF NURSING) Anatomical Region Laterality Modality Body, Chest N/A Computed Radiogr aphy 10/07/2024 7:05 AM INSTRUCTOR OF NURSING Impressions 10/07/2024 7:05 AM INSTRUCTOR OF NURSING The current study is compared with the prior radiograph dated ??10/02/2024. ??Spine stimulator is present. ??The heart and mediastinal contours are normal. ??There is no mass or consolidation. There is no lymphadenopathy. ??There are no pleural effusions. ??There is no pneumothorax. There is no interval change. Electronically signed by: Lauren Cantrell M.D. Narrative 10/07/2024 7:05 AM INSTRUCTOR OF NURSING EXAMINATION: 1 view chest radiograph Procedure Note [...] (ABNORMAL) Lactate, whole blood (10/06/2024 9:30 PM INSTRUCTOR OF NURSING) Lactate, bld 2.7(H) 0.7 - 2.0 mmol/L Blood 10/06/2024 9:30 PM INSTRUCTOR OF NURSING 10/06/2024 9:30 PM INSTRUCTOR OF NURSING us Tamanna Porras NP LAB BLOOD ORDERABLES Final Resul t Performing Organization Address City/State/[facility] Co de Phone Number [facility] Department [place] [address] * eGFR (10/06/2024 9:16 PM INSTRUCTOR OF NURSING) eGFR 61 >=60 mL/min/1. 73 m2 Comment: [...] last reviewed 2021. Blood 10/06/2024 9:16 PM INSTRUCTOR OF NURSING 10/06/2024 9:34 PM INSTRUCTOR OF NURSING us James Robles MD LAB BLOOD ORDERABLES Final Resu lt [facility] Department [place] [address] * (ABNORMAL) CBC without differential (10/06/2024 9:16 PM INSTRUCTOR OF NURSING) WBC 17.1(H) 3.8 - 9.9 K/cumm Hgb 10.8(L) 13.0 - 17.5 g/dL [facility] Hct 30.7(L) 38.9 - 50.3 % [facility] Plt 256 150 - 400 K/cumm [facility] MPV 10.3 9.1 - 12.3 fL [facility] RBC 3.40(L) 4.30 - 5.80 M/cumm [facility] MCV 90.3 81.3 - 96.4 fL [facility] MCH 31.8 27.1 - 33.3 pg [facility] MCHC 35.2 32.3 - 35.7 g/dL [facility] RDW CV 13.1 11.1 - 14.9 % [facility] RDW SD 43.2 35.7 - 48.1 fL [facility] NRBC abs 0.00 0.00 - 0.01 K/cumm [facility] Blood 10/06/2024 9:16 PM INSTRUCTOR OF NURSING 10/06/2024 9:34 PM INSTRUCTOR OF NURSING Maria Isabel Unger NP LAB BLOOD ORDERABLES Final Result Performing Organization Address City/[facility]/ZIP Co de Phone Number [facility] Department [place] [address] * (ABNORMAL) Basic metabolic panel (10/06/2024 9:16 PM INSTRUCTOR OF NURSING) Sodium 140 135 - 145 mmol/L Potassium, pl 4.7 3.3 - 4.9 mmol/L [facility] Chloride 105 97 - 110 mmol/L [facility] CO2 25 22 - 32 mmol/L [facility] Anion gap 10 2 - 15 mmol/L [facility] BUN 32(H) 6 - 25 mg/dL [facility] Creatinine 1.22 0.80 - 1.30 mg/dL [facility] Glucose 152 70 - 199 mg/dL [facility] Comment: Interpretive Data Fasting glucose [...] 2022. Calcium 8.7 8.5 - 10.3 mg/dL [facility] Blood 10/06/2024 9:16 PM INSTRUCTOR OF NURSING 10/06/2024 9:34 PM INSTRUCTOR OF NURSING us James Robles MD LAB BLOOD ORDERABLES Final Resu lt REYNALDO MAHAR[facility] Department [place] [address] * eGFR (10/05/2024 10:43 PM INSTRUCTOR OF NURSING) Pathologist [facility] eGFR 67 >=60 mL/min/1. 73 m2 Comment: [...] reviewed 2021. Blood 10/05/2024 10:4 3 PM INSTRUCTOR OF NURSING 10/05/2024 11:10 PM INSTRUCTOR OF NURSING us James Robles MD LAB BLOOD ORDERABLES Final Resu lt [facility] Department [place] [address] * (ABNORMAL) CBC without differential (10/05/2024 10:43 PM INSTRUCTOR OF NURSING) Pathologist [facility] WBC 16.5(H) 3.8 - 9.9 K/cumm Hgb 10.5(L) 13.0 - 17.5 g/dL [facility] Hct 31.4(L) 38.9 - 50.3 % [facility] Plt 238 150 - 400 K/cumm [facility] MPV 10.7 9.1 - 12.3 fL [facility] RBC 3.37(L) 4.30 - 5.80 M/cumm [facility] MCV 93.2 81.3 - 96.4 fL [facility] MCH 31.2 27.1 - 33.3 pg [facility] MCHC 33.4 32.3 - 35.7 g/dL [facility] RDW CV 13.3 11.1 - 14.9 % [facility] RDW SD 45.3 35.7 - 48.1 fL [facility] NRBC abs 0.00 0.00 - 0.01 K/cumm [facility] Blood 10/05/2024 10:4 3 PM INSTRUCTOR OF NURSING 10/05/2024 11:11 PM INSTRUCTOR OF NURSING us Maria Isabel Unger PIPE ORGAN BUILDER LAB BLOOD ORDERABLES Final Result Performing Organization Address City/[facility]/ZIP Co de Phone Number [facility] Department of Laboratories [place], [place] [address] * (ABNORMAL) Lactate, whole blood (10/05/2024 10:43 PM INSTRUCTOR OF NURSING) Pathologist [facility] Lactate, bld 2.2(H) 0.7 - 2.0 mmol/L Blood 10/05/2024 10:4 3 PM INSTRUCTOR OF NURSING 10/05/2024 11:07 PM INSTRUCTOR OF NURSING Tamanna Porras PIPE ORGAN BUILDER LAB BLOOD ORDERABLES Final Resul t Performing Organization Address City/[facility]/ZIP Co de Phone Number [facility] Department [place] [address] * (ABNORMAL) Basic metabolic panel (10/05/2024 10:43 PM INSTRUCTOR OF NURSING) Sodium 143 135 - 145 mmol/L Potassium, pl 4.4 3.3 - 4.9 mmol/L [facility] Chloride 108 97 - 110 mmol/L [facility] CO2 25 22 - 32 mmol/L [facility] Anion gap 10 2 - 15 mmol/L [facility] BUN 30(H) 6 - 25 mg/dL [facility] Creatinine 1.14 0.80 - 1.30 mg/dL [facility] Glucose 139 70 - 199 mg/dL [facility] Comment: Interpretive Data Fasting glucose [...] 2022. Calcium 8.8 8.5 - 10.3 mg/dL [facility] Blood 10/05/2024 10:4 3 PM INSTRUCTOR OF NURSING 10/05/2024 11:10 PM INSTRUCTOR OF NURSING us James Robles MD LAB BLOOD ORDERABLES Final Resu lt [facility] Department [place] [address] * (ABNORMAL) eGFR (10/04/2024 8:49 PM INSTRUCTOR OF NURSING) [facility] eGFR 57(L) >=60 mL/min/1. 73 m2 Comment: [...] last reviewed 2021. Blood 10/04/2024 8:49 PM INSTRUCTOR OF NURSING 10/04/2024 9:06 PM INSTRUCTOR OF NURSING us James Robles MD LAB BLOOD ORDERABLES Final Resu lt [facility] Department [place] [address] * (ABNORMAL) Differential, auto (10/04/2024 8:49 PM INSTRUCTOR OF NURSING) Pathologist [facility] Neutrophil abs 20.1(H) 1.5 - 6.5 K/cumm Imm gran abs 0.3(H) 0.0 - 0.1 K/cumm [facility] Lymphocyte abs 1.2 0.8 - 3.3 K/cumm [facility] Monocyte abs 1.4(H) 0.2 - 0.8 K/cumm [facility] Eosinophil abs 0.0 0.0 - 0.5 K/cumm [facility] Basophil abs 0.0 0.0 - 0.1 K/cumm [facility] Neutrophil pct 87.4 % [facility] Comment: Consistent with previous result Interpretive Data Percent cell count reference ranges are not reported, since discordance with absolute values may lead to misinterpretation of CBC data. Current Interpretive Data was last revised on 2018. Imm gran pct 1.3 % [facility] Comment: Interpretive Data Percent cell count reference ranges are not reported, since discordance with absolute values may lead to misinterpretation of CBC data. Current Interpretive Data was last revised on 2018. Lymphocyte pct 5.2 % [facility] Comment: Interpretive Data Percent cell count reference ranges are not reported, since discordance with absolute values may lead to misinterpretation of CBC data. Current Interpretive Data was last revised on 2018. Monocyte pct 6.0 % [facility] Comment: Interpretive Data Percent cell count reference ranges are not reported, since discordance with absolute values may lead to misinterpretation of CBC data. Current Interpretive Data was last revised on 2018. Eosinophil pct 0.0 % [facility] Comment: Interpretive Data Percent cell count reference ranges are not reported, since discordance with absolute values may lead to misinterpretation of CBC data. Current Interpretive Data was last revised on 2018. Basophil pct 0.1 % [facility] Comment: Interpretive Data Percent cell count reference ranges are not reported, since discordance with absolute values may lead to misinterpretation of CBC data. Current Interpretive Data was last revised on 2018. Blood 10/04/2024 8:49 PM INSTRUCTOR OF NURSING 10/04/2024 9:06 PM INSTRUCTOR OF NURSING us James Robles MD LAB BLOOD ORDERABLES Final Resu lt [facility] Department [place] [address] * (ABNORMAL) Lactate, whole blood (10/04/2024 8:49 PM INSTRUCTOR OF NURSING) Lactate, bld 2.5(H) 0.7 - 2.0 mmol/L Blood 10/04/2024 8:49 PM INSTRUCTOR OF NURSING 10/04/2024 9:00 PM INSTRUCTOR OF NURSING us Tamanna Porras NP LAB BLOOD ORDERABLES Final Resul t [facility] Department [place] [address] * Calcium, ionized, whole blood (10/04/2024 8:49 PM INSTRUCTOR OF NURSING) [facility] Ca, ionized, bld 5.10 4.50 - 5.10 mg/dL Blood 10/04/2024 8:49 PM INSTRUCTOR OF NURSING 10/04/2024 9:00 PM INSTRUCTOR OF NURSING us Tamanna Porras [employer]IPE [employer]DER LAB BLOOD ORDERABLES Final Resul t Performing Organization Address [facility] de Phone Number [facility] [place] [address] * (ABNORMAL) Troponin I high-sensitivity (10/04/2024 8:49 PM INSTRUCTOR OF NURSING) [facility] Trop I hs 128(H) <=35 ng/L Comment: Interpretive Data For further hscTnI resources including the diagnostic algorithm and an aid in interpretation, copy and paste this link: https://bjhlab.testcatalog.org/show/hsTrop-[email or web address] Current Interpretive Data last revised 2020. Blood 10/04/2024 8:49 PM INSTRUCTOR OF NURSING 10/04/2024 9:06 PM INSTRUCTOR OF NURSING us Tamanna Porras NP LAB BLOOD ORDERABLES Final Resul t Performing Organization Address [facility] Co de Phone Number [facility] Department [place] [address] * (ABNORMAL) CBC with auto differential (10/04/2024 8:49 PM INSTRUCTOR OF NURSING) [facility] WBC 23.0(H) 3.8 - 9.9 K/cumm Hgb 10.5(L) 13.0 - 17.5 g/dL [facility] Hct 31.0(L) 38.9 - 50.3 % [facility] Plt 207 150 - 400 K/cumm [facility] MPV 10.2 9.1 - 12.3 fL [facility] RBC 3.34(L) 4.30 - 5.80 M/cumm [facility] MCV 92.8 81.3 - 96.4 fL [facility] MCH 31.4 27.1 - 33.3 pg [facility] MCHC 33.9 32.3 - 35.7 g/dL [facility] RDW CV 13.6 11.1 - 14.9 % [facility] RDW SD 45.7 35.7 - 48.1 fL [facility] NRBC abs 0.00 0.00 - 0.01 K/cumm [facility] Blood 10/04/2024 8:49 PM INSTRUCTOR OF NURSING 10/04/2024 9:06 PM INSTRUCTOR OF NURSING us James Robles MD LAB BLOOD ORDERABLES Final Resu lt [facility] Department [place] [address] * (ABNORMAL) Basic metabolic panel (10/04/2024 8:49 PM INSTRUCTOR OF NURSING) Sodium 144 135 - 145 mmol/L Potassium, pl 4.4 3.3 - 4.9 mmol/L [facility] Chloride 113(H) 97 - 110 mmol/L [facility] CO2 22 22 - 32 mmol/L [facility] Anion gap 9 2 - 15 mmol/L [facility] BUN 24 6 - 25 mg/dL [facility] Creatinine 1.30 0.80 - 1.30 mg/dL [facility] Glucose 168 70 - 199 mg/dL [facility] Comment: Interpretive Data Fasting glucose [...] 2022. Calcium 8.4(L) 8.5 - 10.3 mg/dL [facility] Blood 10/04/2024 8:49 PM INSTRUCTOR OF NURSING 10/04/2024 9:06 PM INSTRUCTOR OF NURSING us James Robles MD LAB BLOOD ORDERABLES Final Resu lt Performing Organization Address [facility] de Phone Number [facility] [place] [address] * (ABNORMAL) Urinalysis, microscopic only (10/04/2024 1:30 PM INSTRUCTOR OF NURSING) WBC, ur 0-5 0 - 5 /HPF RBC, ur >50(A) 0 - 2 /HPF [facility] Epithelial cells, squamous, ur 1-5 0 - 5 /HPF [facility] Mucous, ur Present(A) [facility] Culture Reflex Comment Reflex conditions for urine culture (WBC >10) not met. [facility] Urine 10/04/2024 1:30 PM INSTRUCTOR OF NURSING 10/04/2024 4:15 PM INSTRUCTOR OF NURSING us Tamanna Porras NP LAB URINE ORDERABLES Final Resul t Performing Organization Address [facility] de Phone Number [facility] [place] [address] * (ABNORMAL) Urinalysis reflex to microscopic and culture Urine (10/04/2024 1:30 PM INSTRUCTOR OF NURSING) Color, ur Straw Yellow Clarity, ur Clear Clear [facility] Specific gravity, ur 1.028 1.003 - 1.030 [facility] pH, urine 6.0 [facility] Comment: Interpretive Data ? Urine pH is affected by diet, medications, systemic acid-base disturbances, and renal tubular function. ??pH may affect urinary stone formation. ??For example, urine pH below 6.0 may help reduce the tendency for calcium phosphate stones and pH greater than 6.0 may reduce the tendency for uric acid stone formation. Source: [facility] Current Interpretive Data was last revised on 2017 Protein, ur ql 1+(A) Negative [facility] Glucose, ur ql Negative Negative [facility] Ketones, ur Negative Negative [facility] Bilirubin, ur Negative Negative [facility] Blood, ur 3+(A) Negative [facility] Urobilinogen, ur <2.0 <2.0 mg/dL [facility] Nitrite, ur Negative Negative [facility] Leukocyte esterase, ur Negative Negative [facility] UA reflex comment Reflex to microscopic UA will be performed. [facility] Urine 10/04/2024 1:30 PM INSTRUCTOR OF NURSING 10/04/2024 4:16 PM INSTRUCTOR OF NURSING Tamanna Porras NP LAB MICROBIOLOGY - GENERAL ORDER TALYA Final Result Performing Organization Address [facility]/ZIP Co de Phone Number [facility] Department [place] [address] * (ABNORMAL) Lactate, whole blood (10/04/2024 12:12 PM INSTRUCTOR OF NURSING) Pathologist [facility] Lactate, bld 3.7(H) 0.7 - 2.0 mmol/L Blood 10/04/2024 12:1 2 PM INSTRUCTOR OF NURSING 10/04/2024 12:22 PM INSTRUCTOR OF NURSING Tamanna Porras NP LAB BLOOD ORDERABLES Final Resul t Performing Organization Address City/[facility]/ZIP Co de Phone Number [facility] Department [place] [address] * (ABNORMAL) Troponin I high-sensitivity 2-hour (10/04/2024 12:06 PM INSTRUCTOR OF NURSING) Pathologist [facility] Trop I hs 132(H) <=35 ng/L Comment: Interpretive Data For further hscTnI resources including the diagnostic algorithm and an aid in interpretation, copy and paste this link: https://bjhlab.testcatalog.org/show/hsTrop-[email or web address] Current Interpretive Data last revised 2020. Trop I hs pct delta -9 % [facility] Trop I hs interp Equivocal [facility] Blood 10/04/2024 12:0 6 PM INSTRUCTOR OF NURSING 10/04/2024 12:30 PM INSTRUCTOR OF NURSING Geraldine Leary NP LAB BLOOD ORDERABLES Final Result Performing Organization Address City/[facility]/ZIP Co de Phone Number [facility] Department [place] [address] * Critical Result Callback Chemistry (10/04/2024 9:06 AM INSTRUCTOR OF NURSING) Date Notified [id number] Time Notified 1024 [facility] TestName Lactate [facility] Called/Read Back Arin JACOBS [facility] Credentials RN [facility] Called By NEAL JACOBS [facility] Blood 10/04/2024 9:06 AM INSTRUCTOR OF NURSING 10/04/2024 9:58 AM INSTRUCTOR OF NURSING Geraldine Leary NP LAB BLOOD ORDERABLES Final Result Performing Organization Address [facility] Co de Phone Number [facility] Department [place] [address] * (ABNORMAL) Troponin I high-sensitivity series (baseline, 2hr, 4hr, 6hr) (10/04/2024 9:06 AM INSTRUCTOR OF NURSING) Trop I hs 145(H) <=35 ng/L Comment: Interpretive Data For further hscTnI resources including the diagnostic algorithm and an aid in interpretation, copy and paste this link: https://bjhlab.testcatalog.org/show/[email or web address] Current Interpretive Data last revised 2020. Blood 10/04/2024 9:06 AM INSTRUCTOR OF NURSING 10/04/2024 9:58 AM INSTRUCTOR OF NURSING Geraldine Leary PIPE ORGAN BUILDER LAB BLOOD ORDERABLES Final Result [facility] Department [place] [address] * (ABNORMAL) Lactate (10/04/2024 9:06 AM INSTRUCTOR OF NURSING) [facility] Lactate 4.1(C) 0.7 - 2.0 mmol/L Blood 10/04/2024 9:06 AM INSTRUCTOR OF NURSING 10/04/2024 9:58 AM INSTRUCTOR OF NURSING Geraldine Leary NP LAB BLOOD ORDERABLES Final Result Performing Organization Address City/[facility] Co de Phone Number [facility] [place] [address] * Influenza A/B, RSV, and COVID-19 PCR Nasopharyngeal (10/04/2024 9:06 AM INSTRUCTOR OF NURSING) [facility] COVID-19 RNA Negative Negative [facility] Influenza A RNA Negative Negative [facility] Influenza B RNA Negative Negative [facility] RSV RNA Negative Negative [facility] Comment: Interpretive data: Testing performed by [facility] ([phone]). This test is performed using the [employer] Xpert Xpress CoV-2/Flu/RSV plus assay. This is a multiplex, real-time reverse transcriptase PCR assay intended for the qualitative detection of nucleic acid from SARS-CoV-2, influenza A, influenza B, and respiratory syncytial virus. This assay has been cleared by the [place] Food and Drug administration. The performance characteristics have been verified by the [facility]. ??Results must be considered in the clinical context, and a negative result does not rule out infection. Interpretive Data last revised 2023 Nasopharyngeal 10/04/2024 9: 06 AM INSTRUCTOR OF NURSING 10/04/2024 10:22 AM INSTRUCTOR OF NURSING Narrative [facility] - 10/04/2024 11:17 AM INSTRUCTOR OF NURSING Is the Patient experiencing symptoms consistent with COVID?->Unknown Geraldine Leary NP LAB MICROBIOLOGY - GE NERAL ORDERABLES Final Result Performing Organization Address [facility]/ZIP Co de Phone Number REYNALDO MAHAR[facility] Department [place] [address] [facility] * eGFR (10/03/2024 10:36 PM INSTRUCTOR OF NURSING) Pathologist [facility] eGFR 61 >=60 mL/min/1. 73 m2 Comment: [...] reviewed 2021. Blood 10/03/2024 10:3 6 PM INSTRUCTOR OF NURSING 10/03/2024 10:52 PM INSTRUCTOR OF NURSING James Robles MD LAB BLOOD ORDERABLES Final Resu lt [facility] Department [place] [address] * (ABNORMAL) Basic metabolic panel (10/03/2024 10:36 PM INSTRUCTOR OF NURSING) [facility] Sodium 142 135 - 145 mmol/L Potassium, pl 4.4 3.3 - 4.9 mmol/L [facility] Chloride 113(H) 97 - 110 mmol/L [facility] CO2 22 22 - 32 mmol/L [facility] Anion gap 7 2 - 15 mmol/L [facility] BUN 17 6 - 25 mg/dL [facility] Creatinine 1.23 0.80 - 1.30 mg/dL [facility] Glucose 162 70 - 199 mg/dL [facility] Comment: Interpretive Data Fasting glucose [...] 2022. Calcium 8.1(L) 8.5 - 10.3 mg/dL [facility] Blood 10/03/2024 10:3 6 PM INSTRUCTOR OF NURSING 10/03/2024 10:52 PM INSTRUCTOR OF NURSING us James Robles MD LAB BLOOD ORDERABLES Final Resu lt [facility] Department [place] [address] * (ABNORMAL) Differential, auto (10/03/2024 8:30 PM INSTRUCTOR OF NURSING) [facility] Neutrophil abs 22.7(H) 1.5 - 6.5 K/cumm Imm gran abs 0.3(H) 0.0 - 0.1 K/cumm [facility] Lymphocyte abs 1.2 0.8 - 3.3 K/cumm [facility] Monocyte abs 2.1(H) 0.2 - 0.8 K/cumm [facility] Eosinophil abs 0.0 0.0 - 0.5 K/cumm [facility] Basophil abs 0.0 0.0 - 0.1 K/cumm [facility] Neutrophil pct 86.2 % [facility] Comment: Consistent with previous result Interpretive Data Percent cell count reference ranges are not reported, since discordance with absolute values may lead to misinterpretation of CBC data. Current Interpretive Data was last revised on 2018. Imm gran pct 1.1 % [facility] Comment: Interpretive Data Percent cell count reference ranges are not reported, since discordance with absolute values may lead to misinterpretation of CBC data. Current Interpretive Data was last revised on 2018. Lymphocyte pct 4.6 % [facility] Comment: Interpretive Data Percent cell count reference ranges are not reported, since discordance with absolute values may lead to misinterpretation of CBC data. Current Interpretive Data was last revised on 2018. Monocyte pct 8.0 % [facility] Comment: Interpretive Data Percent cell count reference ranges are not reported, since discordance with absolute values may lead to misinterpretation of CBC data. Current Interpretive Data was last revised on 2018. Eosinophil pct 0.0 % [facility] Comment: Interpretive Data Percent cell count reference ranges are not reported, since discordance with absolute values may lead to misinterpretation of CBC data. Current Interpretive Data was last revised on 2018. Basophil pct 0.1 % [facility] Comment: Interpretive Data Percent cell count reference ranges are not reported, since discordance with absolute values may lead to misinterpretation of CBC data. Current Interpretive Data was last revised on 2018. Blood 10/03/2024 8:30 PM INSTRUCTOR OF NURSING 10/03/2024 9:05 PM INSTRUCTOR OF NURSING us James Robles MD LAB BLOOD ORDERABLES Final Resu lt [facility] MA[facility]AR[facility] [place] [address] * (ABNORMAL) CBC with auto differential (10/03/2024 8:30 PM INSTRUCTOR OF NURSING) WBC 26.3(H) 3.8 - 9.9 K/cumm Hgb 11.3(L) 13.0 - 17.5 g/dL [facility] Hct 33.7(L) 38.9 - 50.3 % [facility] Plt 302 150 - 400 K/cumm [facility] MPV 10.4 9.1 - 12.3 fL [facility] RBC 3.61(L) 4.30 - 5.80 M/cumm [facility] MCV 93.4 81.3 - 96.4 fL [facility] MCH 31.3 27.1 - 33.3 pg [facility] MCHC 33.5 32.3 - 35.7 g/dL [facility] RDW CV 13.2 11.1 - 14.9 % [facility] RDW SD 45.1 35.7 - 48.1 fL [facility] NRBC abs 0.00 0.00 - 0.01 K/cumm [facility] Blood 10/03/2024 8:30 PM INSTRUCTOR OF NURSING 10/03/2024 9:05 PM INSTRUCTOR OF NURSING us James Robles MD LAB BLOOD ORDERABLES Final Resu lt [facility] Department [place] [address] * eGFR (10/03/2024 8:25 PM INSTRUCTOR OF NURSING) eGFR 60 >=60 mL/min/1. 73 m2 Comment: [...] last reviewed 2021. Blood 10/03/2024 8:25 PM INSTRUCTOR OF NURSING 10/03/2024 9:05 PM INSTRUCTOR OF NURSING us James Robles MD LAB BLOOD ORDERABLES Final Resu lt [facility] Department [place] [address] * (ABNORMAL) Basic metabolic panel (10/03/2024 8:25 PM INSTRUCTOR OF NURSING) Sodium 143 135 - 145 mmol/L Potassium, pl 4.1 3.3 - 4.9 mmol/L [facility] Chloride 113(H) 97 - 110 mmol/L [facility] CO2 20(L) 22 - 32 mmol/L [facility] Anion gap 10 2 - 15 mmol/L [facility] BUN 17 6 - 25 mg/dL [facility] Creatinine 1.25 0.80 - 1.30 mg/dL [facility] Glucose 163 70 - 199 mg/dL [facility] Comment: Interpretive Data Fasting glucose [...] classification and Diagnosis of Diabetes Diabetes Care 2022; 46: S19-S40. Current interpretive data was last revised 2022. Calcium 8.0(L) 8.5 - 10.3 mg/dL [facility] Blood 10/03/2024 8:25 PM INSTRUCTOR OF NURSING 10/03/2024 9:05 PM INSTRUCTOR OF NURSING James Robles MD LAB BLOOD ORDERABLES Final Resu lt Performing Organization Address City/[facility]/ZIP Co de Phone Number [facility] Department [place] [address] * ECG 12 lead (10/03/2024 2:19 PM INSTRUCTOR OF NURSING) Ventricular Rate EKG/Min 96 BPM [facility] Atrial Rate 96 BPM [facility] MA-Interval (MSEC) 242 ms [facility] QRS-Interval (MSEC) 110 ms [facility] QT-Interval (MSEC) 364 ms [facility] QTc 459 ms [facility] P [place] 69 degrees [facility] R [place] 76 degrees [facility] T [place] 1 degrees [facility] Diagnosis Sinus rhythm with 1st degree A-V block Nonspecific ST and T wave abnormality Abnormal ECG When compared with ECG of 10-MAY-2008 09:35, MA interval has increased Vent. rate has increased BY ??35 BPM Non-specific change in ST segment in Inferior leads ST now depressed in Anterolateral leads Nonspecific T wave abnormality now evident in Inferior leads QT has lengthened Confirmed by JACOBO CARSON M.D ([id number]) on 10/04/2024 10:42:26 AM [facility] 10/03/2024 2:19 PM INSTRUCTOR OF NURSING 10/04/2024 10:42 AM INSTRUCTOR OF NURSING James Robles MD ECG ORDERABLES Final Result Performing Organization Address [facility]/ZIP Co de Phone Number [facility] * POCT glucose (10/03/2024 2:07 PM INSTRUCTOR OF NURSING) Glucose, POC 128 70 - 199 mg/dL Blood 10/03/2024 2:07 PM INSTRUCTOR OF NURSING 10/03/2024 2:07 PM INSTRUCTOR OF NURSING us James Robles MD LAB POCT ORDERABLES - DEVICE Fi nal Result Performing Organization Address [facility] Co de Phone Number [facility] [place] [address] * (ABNORMAL) eGFR (10/03/2024 4:58 AM INSTRUCTOR OF NURSING) eGFR 57(L) >=60 mL/min/1. 73 m2 Comment: [...] last reviewed 2021. Blood 10/03/2024 4:58 AM INSTRUCTOR OF NURSING 10/03/2024 5:32 AM INSTRUCTOR OF NURSING us James Robles MD LAB BLOOD ORDERABLES Final Resu lt Performing Organization Address City/[facility]/ZIP Co de Phone Number REYNALDO MAHARAJ [facility] [place] [address] * (ABNORMAL) Differential, auto (10/03/2024 4:58 AM INSTRUCTOR OF NURSING) Neutrophil abs 28.0(H) 1.5 - 6.5 K/cumm Imm gran abs 0.2(H) 0.0 - 0.1 K/cumm [facility] Lymphocyte abs 0.9 0.8 - 3.3 K/cumm [facility] Monocyte abs 1.5(H) 0.2 - 0.8 K/cumm [facility] Eosinophil abs 0.0 0.0 - 0.5 K/cumm [facility] Basophil abs 0.1 0.0 - 0.1 K/cumm [facility] Neutrophil pct 91.6 % [facility] Comment: Interpretive Data Percent cell count reference ranges are not reported, since discordance with absolute values may lead to misinterpretation of CBC data. Current Interpretive Data was last revised on 2018. Imm gran pct 0.6 % [facility] Comment: Interpretive Data Percent cell count reference ranges are not reported, since discordance with absolute values may lead to misinterpretation of CBC data. Current Interpretive Data was last revised on 2018. Lymphocyte pct 2.8 % [facility] Comment: Interpretive Data Percent cell count reference ranges are not reported, since discordance with absolute values may lead to misinterpretation of CBC data. Current Interpretive Data was last revised on 2018. Monocyte pct 4.8 % [facility] Comment: Interpretive Data Percent cell count reference ranges are not reported, since discordance with absolute values may lead to misinterpretation of CBC data. Current Interpretive Data was last revised on 2018. Eosinophil pct 0.0 % [facility] Comment: Interpretive Data Percent cell count reference ranges are not reported, since discordance with absolute values may lead to misinterpretation of CBC data. Current Interpretive Data was last revised on 2018. Basophil pct 0.2 % [facility] Comment: Interpretive Data Percent cell count reference ranges are not reported, since discordance with absolute values may lead to misinterpretation of CBC data. Current Interpretive Data was last revised on 2018. Blood 10/03/2024 4:58 AM INSTRUCTOR OF NURSING 10/03/2024 5:32 AM INSTRUCTOR OF NURSING James Robles MD LAB BLOOD ORDERABLES Final Resu lt Performing Organization Address City/[facility]/ZIP Co de Phone Number [facility] Department [place] [address] * (ABNORMAL) Basic metabolic panel (10/03/2024 4:58 AM INSTRUCTOR OF NURSING) [facility] Sodium 143 135 - 145 mmol/L Potassium, pl 4.7 3.3 - 4.9 mmol/L [facility] Chloride 111(H) 97 - 110 mmol/L [facility] CO2 22 22 - 32 mmol/L [facility] Anion gap 10 2 - 15 mmol/L [facility] BUN 14 6 - 25 mg/dL [facility] Creatinine 1.29 0.80 - 1.30 mg/dL [facility] Glucose 146 70 - 199 mg/dL [facility] Comment: Interpretive Data Fasting glucose [...] 2022. Calcium 8.3(L) 8.5 - 10.3 mg/dL [facility] Blood 10/03/2024 4:58 AM INSTRUCTOR OF NURSING 10/03/2024 5:32 AM INSTRUCTOR OF NURSING James Robles MD LAB BLOOD ORDERABLES Final Resu lt Performing Organization Address [facility]/ZIP Co de Phone Number [facility] Department [place] [address] * (ABNORMAL) CBC with auto differential (10/03/2024 4:58 AM INSTRUCTOR OF NURSING) WBC 30.5(H) 3.8 - 9.9 K/cumm Hgb 13.0 13.0 - 17.5 g/dL [facility] Hct 38.0(L) 38.9 - 50.3 % [facility] Plt 346 150 - 400 K/cumm [facility] MPV 10.2 9.1 - 12.3 fL [facility] RBC 4.14(L) 4.30 - 5.80 M/cumm [facility] MCV 91.8 81.3 - 96.4 fL [facility] MCH 31.4 27.1 - 33.3 pg [facility] MCHC 34.2 32.3 - 35.7 g/dL [facility] RDW CV 12.9 11.1 - 14.9 % [facility] RDW SD 43.0 35.7 - 48.1 fL [facility] NRBC abs 0.00 0.00 - 0.01 K/cumm [facility] Blood 10/03/2024 4:58 AM INSTRUCTOR OF NURSING 10/03/2024 5:32 AM INSTRUCTOR OF NURSING us James Robles MD LAB BLOOD ORDERABLES Final Resu lt [facility] Department [place] [address] * XR chest 1 view (Portable) (10/02/2024 9:08 PM INSTRUCTOR OF NURSING) Anatomical Region Laterality Modality Body, Chest N/A Computed Radiogr aphy 10/03/2024 8:28 AM INSTRUCTOR OF NURSING Impressions 10/03/2024 4:05 PM INSTRUCTOR OF NURSING No priors available for comparison. Spinal stimulator [...] James MD, PHD Narrative 10/03/2024 4:05 PM INSTRUCTOR OF NURSING EXAMINATION: 1 view chest radiograph Procedure Note [...] Result * (ABNORMAL) eGFR (10/02/2024 4:01 PM INSTRUCTOR OF NURSING) eGFR 57(L) >=60 mL/min/1. 73 m2 Comment: [...] last reviewed 2021. Blood 10/02/2024 4:01 PM INSTRUCTOR OF NURSING 10/02/2024 4:17 PM INSTRUCTOR OF NURSING us James Robles MD LAB BLOOD ORDERABLES Final Resu lt [facility] [facility] Department [place] [address] * (ABNORMAL) Differential, auto (10/02/2024 4:01 PM INSTRUCTOR OF NURSING) Neutrophil abs 14.1(H) 1.5 - 6.5 K/cumm Imm gran abs 0.1 0.0 - 0.1 K/cumm [facility] Lymphocyte abs 1.3 0.8 - 3.3 K/cumm [facility] Monocyte abs 0.7 0.2 - 0.8 K/cumm [facility] Eosinophil abs 0.0 0.0 - 0.5 K/cumm [facility] Basophil abs 0.1 0.0 - 0.1 K/cumm [facility] Neutrophil pct 86.5 % [facility] Comment: Interpretive Data Percent cell count reference ranges are not reported, since discordance with absolute values may lead to misinterpretation of CBC data. Current Interpretive Data was last revised on 2018. Imm gran pct 0.7 % [facility] Comment: Interpretive Data Percent cell count reference ranges are not reported, since discordance with absolute values may lead to misinterpretation of CBC data. Current Interpretive Data was last revised on 2018. Lymphocyte pct 8.0 % [facility] Comment: Interpretive Data Percent cell count reference ranges are not reported, since discordance with absolute values may lead to misinterpretation of CBC data. Current Interpretive Data was last revised on 2018. Monocyte pct 4.2 % [facility] Comment: Interpretive Data Percent cell count reference ranges are not reported, since discordance with absolute values may lead to misinterpretation of CBC data. Current Interpretive Data was last revised on 2018. Eosinophil pct 0.2 % [facility] Comment: Interpretive Data Percent cell count reference ranges are not reported, since discordance with absolute values may lead to misinterpretation of CBC data. Current Interpretive Data was last revised on 2018. Basophil pct 0.4 % [facility] Comment: Interpretive Data Percent cell count reference ranges are not reported, since discordance with absolute values may lead to misinterpretation of CBC data. Current Interpretive Data was last revised on 2018. Blood 10/02/2024 4:01 PM INSTRUCTOR OF NURSING 10/02/2024 4:17 PM INSTRUCTOR OF NURSING James Robles MD LAB BLOOD ORDERABLES Final Resu lt Performing Organization Address City/[facility]/ZIP Co de Phone Number [facility] [place] [address] * Protime-INR (10/02/2024 4:01 PM INSTRUCTOR OF NURSING) PT 12.4 9.7 - 13.0 sec INR 1.14 0.90 - 1.20 [facility] Comment: Interpretive data Oral anticoagulant therapeutic ranges: Venous thromboembolism prophylaxis or treatment: 2.0-3.0 CARDIOLOGY Standard range: 2.0-3.0 High-intensity range: 2.5-3.5 Refer to indication-specific guidelines for appropriate target ranges for prosthetic heart valve replacement. Current interpretive data was last revised on 2019. Blood 10/02/2024 4:01 PM INSTRUCTOR OF NURSING 10/02/2024 4:16 PM INSTRUCTOR OF NURSING James Robles MD LAB BLOOD ORDERABLES Final Resu lt [facility] [place] [address] * (ABNORMAL) aPTT (10/02/2024 4:01 PM INSTRUCTOR OF NURSING) [facility] aPTT 27(L) 28 - 38 sec Comment: Interpretive Data Heparin therapeutic range: 66.0 - 100.0 seconds. Range based on correlation with therapeutic heparin activity range of 0.3 - 0.7 Units/mL. Current interpretive data was last revised on 2023. Blood 10/02/2024 4:01 PM INSTRUCTOR OF NURSING 10/02/2024 4:16 PM INSTRUCTOR OF NURSING James Robles MD LAB BLOOD ORDERABLES Final Resu lt Performing Organization Address City/[facility]/ZIP Co de Phone Number [facility] Department [place] [address] * (ABNORMAL) CBC with auto differential (10/02/2024 4:01 PM INSTRUCTOR OF NURSING) [facility] WBC 16.3(H) 3.8 - 9.9 K/cumm Hgb 12.7(L) 13.0 - 17.5 g/dL [facility] Hct 38.7(L) 38.9 - 50.3 % [facility] Plt 255 150 - 400 K/cumm [facility] MPV 9.8 9.1 - 12.3 fL [facility] RBC 4.10(L) 4.30 - 5.80 M/cumm [facility] MCV 94.4 81.3 - 96.4 fL [facility] MCH 31.0 27.1 - 33.3 pg [facility] MCHC 32.8 32.3 - 35.7 g/dL [facility] RDW CV 12.9 11.1 - 14.9 % [facility] RDW SD 44.5 35.7 - 48.1 fL [facility] NRBC abs 0.00 0.00 - 0.01 K/cumm [facility] Blood 10/02/2024 4:01 PM INSTRUCTOR OF NURSING 10/02/2024 4:17 PM INSTRUCTOR OF NURSING James Robles MD LAB BLOOD ORDERABLES Final Resu lt [facility] [place] [address] * Phosphorus (10/02/2024 4:01 PM INSTRUCTOR OF NURSING) [facility] Phosphorus, pl 2.4 2.3 - 4.5 mg/dL Blood 10/02/2024 4:01 PM INSTRUCTOR OF NURSING 10/02/2024 4:17 PM INSTRUCTOR OF NURSING James Robles MD LAB BLOOD ORDERABLES Final Resu lt Performing Organization Address [facility] Co de Phone Number [facility] [place] [address] * Magnesium (10/02/2024 4:01 PM INSTRUCTOR OF NURSING) [facility] Magnesium 1.9 1.4 - 2.5 mg/dL Blood 10/02/2024 4:01 PM INSTRUCTOR OF NURSING 10/02/2024 4:17 PM INSTRUCTOR OF NURSING James Robles MD LAB BLOOD ORDERABLES Final Resu lt Performing Organization Address [facility] Co de Phone Number [facility] Department [place] [address] * (ABNORMAL) Comprehensive metabolic panel (10/02/2024 4:01 PM INSTRUCTOR OF NURSING) [facility] Sodium 141 135 - 145 mmol/L Potassium, pl 4.2 3.3 - 4.9 mmol/L [facility] Chloride 112(H) 97 - 110 mmol/L [facility] CO2 22 22 - 32 mmol/L [facility] Anion gap 7 2 - 15 mmol/L [facility] BUN 16 6 - 25 mg/dL [facility] Creatinine 1.30 0.80 - 1.30 mg/dL [facility] Glucose 118 70 - 199 mg/dL [facility] Comment: Interpretive Data Fasting glucose [...] 2022. Calcium 8.3(L) 8.5 - 10.3 mg/dL [facility] Bilirubin, total 0.2 0.1 - 1.2 mg/dL [facility] Protein, pl 5.5(L) 6.5 - 8.5 g/dL [facility] Albumin 3.4(L) 3.5 - 5.0 g/dL [facility] Alk phos 64 40 - 130 Units/L [facility] ALT 19 7 - 55 Units/L [facility] AST 21 10 - 50 Units/L [facility] Blood 10/02/2024 4:01 PM INSTRUCTOR OF NURSING 10/02/2024 4:17 PM INSTRUCTOR OF NURSING us James Robles MD LAB BLOOD ORDERABLES Final Resu lt [facility] Department [place] [address] * (ABNORMAL) POC Blood Gas and Chemistries, Arterial - (10/02/2024 2:30 PM INSTRUCTOR OF NURSING) pH, Art POC 7.31(L) 7.35 - 7.45 pCO2, Art POC 41 35 - 45 mmHg [facility] pO2, Art POC 264(H) 83 - 108 mmHg [facility] Na, POC 140 135 - 145 mmol/L [facility] K POC 4.0 3.3 - 4.9 mmol/L [facility] Comment: Interpretive Data Not all point of care methods assess for hemolysis. Confirm with instrument and retest K+ if not consistent with clinical signs and symptoms. Current Interpretive Data was last revised on 2024. Cl, POC 111(H) 97 - 110 mmol/L [facility] Ionized Ca, POC 4.86 4.50 - 5.10 mg/dL [facility] Glucose, POC 104 70 - 199 mg/dL [facility] Lactate, POC 1.1 0.7 - 2.2 mmol/L [facility] SO2 (cas) arterial 100(H) 90 - 95 % [facility] Base excess, POC -5.4 mmol/L [facility] Hct, POC 37.0(L) 41.4 - 51.6 % [facility] Total Hb, POC 12.4(L) 13.8 - 17.2 g/dL [facility] Blood 10/02/2024 2:30 PM INSTRUCTOR OF NURSING 10/02/2024 2:30 PM INSTRUCTOR OF NURSING James Robles MD LAB POCT ORDERABLES - DEVICE Fi nal Result Performing Organization Address [facility]/ZIP Co de Phone Number [facility] Department [place] [address] * FL Fluoroscopy < 1 Hour (10/02/2024 2:00 PM INSTRUCTOR OF NURSING) Narrative [facility] - 10/03/2024 5:04 PM INSTRUCTOR OF NURSING The images from this study are not interpreted by Radiology. ??Please refer to the physician's procedure / OR operative note. James Robles MD IMG FLUOROSCOPY PROCEDURES Cammy l Result Performing Organization Address City/[facility]/ZIP Co de Phone Number [facility] * (ABNORMAL) POC Blood Gas and Chemistries, Arterial - (10/02/2024 10:43 AM INSTRUCTOR OF NURSING) pH, Art POC 7.32(L) 7.35 - 7.45 pCO2, Art POC 41 35 - 45 mmHg [facility] pO2, Art POC 239(H) 83 - 108 mmHg [facility] Na, POC 141 135 - 145 mmol/L [facility] K POC 4.0 3.3 - 4.9 mmol/L [facility] Comment: Interpretive Data Not all point of care methods assess for hemolysis. Confirm with instrument and retest K+ if not consistent with clinical signs and symptoms. Current Interpretive Data was last revised on 2024. Cl, POC 112(H) 97 - 110 mmol/L [facility] Ionized Ca, POC 4.92 4.50 - 5.10 mg/dL [facility] Glucose, POC 97 70 - 199 mg/dL [facility] Lactate, POC 1.0 0.7 - 2.2 mmol/L [facility] SO2 (cas) arterial 100(H) 90 - 95 % [facility] Base excess, POC -4.7 mmol/L [facility] Hct, POC 35.0(L) 41.4 - 51.6 % [facility] Total Hb, POC 11.8(L) 13.8 - 17.2 g/dL [facility] Blood 10/02/2024 10:4 3 AM INSTRUCTOR OF NURSING 10/02/2024 10:43 AM INSTRUCTOR OF NURSING us James Robles MD LAB POCT ORDERABLES - DEVICE Fi nal Result Performing Organization Address City/[facility]/ZIP Co de Phone Number [facility] [place] [address] * Type and screen (10/02/2024 6:18 AM INSTRUCTOR OF NURSING) Ramu, indirect Negative ABO Rh B Negative [facility] Blood 10/02/2024 6:18 AM INSTRUCTOR OF NURSING 10/02/2024 6:26 AM INSTRUCTOR OF NURSING Narrative [facility] - 10/02/2024 7:28 AM INSTRUCTOR OF NURSING Has the patient had Daratumumab or Isatuximab in the past 6 months?->Unknown us Sully Archer NP LAB BLOOD BANK TEST ORDER TALYA Final Result Performing Organization Address City/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 Admitting Diagnoses Diagnosis [...] & Post-op Floor Given 10/14/2024 9:52 AM INSTRUCTOR OF NURSING 1,000 mg Given 10/13/2024 6:47 PM INSTRUCTOR OF NURSING 1,000 mg Given 10/13/2024 1:03 AM INSTRUCTOR OF NURSING 1,000 mg apixaban (ELIQUIS) tablet 5 mg 5 mg, oral, Every 12 hours scheduled, First dose on Wed10/13/24 at 2100, Nurse to discontinue heparin infusion order at first administration of apixaban using 'order condition met' order source, Indications: Venous ThrombosisIndications:Venous Thrombosis Given 10/14/2024 9: 51 AM INSTRUCTOR OF NURSING 5 mg Given 10/13/2024 9:02 PM INSTRUCTOR OF NURSING 5 mg baclofen (LIORESAL) tablet 10 mg 10 mg, oral, 2 times daily, First dose on Wed10/02/24 at 1730, Phase I & Post-op Floor, Indications: Muscle Spasticity of Spinal OriginIndications:Muscle Spasticity of Spinal Origin Given 10/14/2024 9:52 AM INSTRUCTOR OF NURSING 10 mg Given 10/13/2024 9:02 PM INSTRUCTOR OF NURSING 10 mg Given 10/13/2024 9:44 AM INSTRUCTOR OF NURSING 10 mg bisacodyL (DULCOLAX) suppository 10 mg 10 mg, rectal, Daily, First dose (after last modification) on Tyra 10/12/24 at 1015, Phase I & Post-op Floor, If not bowel movement in 48 hours., Indications: constipationIndications:constipation docusate sodium (COLACE) capsule 100 mg 100 mg, oral, 2 times daily, First dose on Wed10/02/24 at 2100, Phase I & Post-op Floor, If able to swallow capsules. Hold for diarrhea., Indications: constipation, Stool SoftenerIndications:constipation,Stool Softener Given 10/13/2024 9:02 PM INSTRUCTOR OF NURSING 100 mg Given 10/12/2024 8:59 AM INSTRUCTOR OF NURSING 100 mg Given 10/11/2024 8:46 PM INSTRUCTOR OF NURSING [address] (CYMBALTA) extended release capsule 30 mg 30 mg, oral, 2 times daily, First dose on Wed10/02/24 at 2100, Phase I & Post-op Floor, Capsule may be opened and contents mixed with applesauce or apple juice ONLY. Do not crush or chew capsule, Indications: Neuropathic PainIndications:Neuropathic Pain Given 10/14/2024 9:51 AM INSTRUCTOR OF NURSING 30 mg Given 10/13/2024 9:02 PM INSTRUCTOR OF NURSING 30 mg Given 10/13/2024 9:45 AM INSTRUCTOR OF NURSING 30 mg famotidine (PEPCID) tablet 20 mg 20 mg, oral, Every 12 hours scheduled, First dose on Wed10/02/24 at 2100, Phase I & Post-op Floor, If able to swallow tablets., Indications: Prevention of Stress UlcerIndications:Prevention of Stress Ulcer Given 10/14/2024 9:52 AM INSTRUCTOR OF NURSING 20 mg Given 10/13/2024 9:02 PM INSTRUCTOR OF NURSING 20 mg Given 10/13/2024 9:45 AM INSTRUCTOR OF NURSING 20 mg finasteride (PROSCAR) tablet 5 mg 5 mg, oral, Every morning, First dose on Wed10/03/24 at 0900, Do not crush, break, or open., Indications: benign prostatic hyperplasia with lower urinary tract sxIndications:benign prostatic hyperplasia with lower urinary tract sx Given 10/14/2024 9:51 AM INSTRUCTOR OF NURSING 5 mg Given 10/13/2024 9:45 AM INSTRUCTOR OF NURSING 5 mg Given 10/12/2024 8:59 AM INSTRUCTOR OF NURSING 5 mg oxyCODONE (ROXICODONE) tablet 5 mg 5 mg, oral, Every 4 hours PRN, 2nd line for pain, Starting on Wed10/02/24 at 1933, Phase I & Post-op Floor, May repeat in 1 hour if pain is uncontrolled or increasing. Max 2 doses within 1 dosing interval., Indications: PainIndications:Pain Given 10/14/2024 1:41 PM INSTRUCTOR OF NURSING 5 mg Given 10/14/2024 9:52 AM INSTRUCTOR OF NURSING 5 mg Given 10/14/2024 6:16 AM INSTRUCTOR OF NURSING 5 mg polyethylene glycol (MIRALAX) packet 17 g 17 g, oral, Daily, First dose on Wed10/02/24 at 2015, Phase I & Post-op Floor, Hold for diarrhea., Indications: constipationIndications:constipation Given 10/12/2024 8:58 AM INSTRUCTOR OF NURSING 17 g Given 10/11/2024 8:47 AM INSTRUCTOR OF NURSING 17 g Given 10/10/2024 8:00 AM INSTRUCTOR OF NURSING 17 g senna (SENOKOT) tablet 1 tablet 1 tablet, oral, 2 times daily, First dose on Wed10/02/24 at 2100, Phase I & Post-op Floor, If able to swallow tablets. Hold for diarrhea., Indications: constipationIndications:constipation Given 10/13/2024 9:02 PM INSTRUCTOR OF NURSING 1 table t Given 10/12/2024 8:59 AM INSTRUCTOR OF NURSING 1 tablet Given 10/11/2024 8:46 PM INSTRUCTOR OF NURSING 1 tablet sodium chloride 0.9% flush 0.5-20 mL 0.5-20 mL, intra-catheter, As needed, line care, Starting on Wed10/02/24 at 1933, Flush volume based on line type and size. Flush before and after each use. , Indications: FlushingIndications:Flushing Given 10/10/2024 8:06 PM INSTRUCTOR OF NURSING 10 mL sodium chloride 0.9% irrigation As needed, Starting on Wed10/02/24 at 1121, Intra-Op Given 10/02/2024 11:21 AM INSTRUCTOR OF NURSING 1,000 mL tamsulosin (FLOMAX) extended release capsule 0.4 mg 0.4 mg, oral, Daily with dinner, First dose on Wed10/09/24 at 0715, Do not crush, chew, cut, dissolve, open or otherwise manipulate tablet/capsule. Given 10/13/2024 6:47 PM INSTRUCTOR OF NURSING 0.4 mg Given 10/12/2024 5:13 PM INSTRUCTOR OF NURSING 0.4 mg Given 10/11/2024 5:57 PM INSTRUCTOR OF NURSING 0.4 mg thrombin-recombinant 5,000 unit topical solution As needed, Starting on Wed10/02/24 at 0930, Intra-Op Given 10/02/2024 9:30 AM INSTRUCTOR OF NURSING 5,000 Units documented in this encounter Discontinued Medications Medication [...] Recently Administered Medications Times are shown in INSTRUCTOR OF NURSING. Scheduled Medication Order 10/12/2024 10/13/2024 10/14/2024 apixaban (ELIQUIS) tablet 5 mg 5 mg, oral, Every 12 hours scheduled, First dose on Wed10/13/24 at 2100, Nurse to discontinue heparin infusion order at first administration of apixaban using 'order condition met' order source, Indications: Venous Thrombosis 2101 (Given - Provider: Rosaura Correa RN) 09 (Given - Provider: Fe Brower, MARK) baclofen (LIORESAL) tablet 10 mg 10 mg, oral, 2 times daily, First dose on Wed10/02/24 at 1730, Phase I & Post-op Floor, Indications: Muscle Spasticity of Spinal Origin 0858 (Given - Provider: Joyce Guillen RN)2106 (Given - Provider: Rita Beverly) 0944 (Given - Provider: Fe Brower, MARK)2101 (Given - Provider: Rosaura Correa RN) 0952 [...] 0900) 0900 (Not Given - Provider: Roslyn Foley, MARK - Reason: Patient/family refused) 0900 (Not Given [...] Beverly - Reason: Other - Comment: diarrhea) 899 (Not Given - Provider: Roslyn Foley, MARK - Reason: Patient/family refused)2101 (Given - Provider: Rosaura Correa RN) 09 (Not Given - Provider: Roslyn Foley, MARK - Reason: Patient/family refused) DULoxetine DR (CYMBALTA) extended release capsule 30 mg 30 mg, oral, 2 times daily, First dose on Wed10/02/24 at 2100, Phase I & Post-op Floor, Capsule may be opened and contents mixed with applesauce or apple juice ONLY. Do not crush or chew capsule, Indications: Neuropathic Pain 0858 (Given - Provider: Joyce Guillen RN)2106 (Given - Provider: Rita Beverly) 944 (Given - Provider: Fe Brower RN)2101 (Given - Provider: Rosaura Correa RN) 09 (Given - Provider: Fe Brower RN) famotidine [...] RN) 0945 (Not Given - Provider: Fe Brower, MARK - Reason: Patient/family refused) 0900 (Not Given - Provider: Roslyn Foley, MARK - Reason: Patient/family refused) senna (SENOKOT) tablet 1 tablet(Linked Group 3) 1 tablet, oral, 2 times daily, First dose on Wed10/02/24 at 2100, Phase I & Post-op Floor, If able to swallow tablets. Hold for diarrhea., Indications: constipation 0859 (Given - Provider: Joyce Guillen RN)210 (Not Given - Provider: Rita Beverly - Reason: Other - Comment: diarrhea) 0900 (Not Given - Provider: Fe Brower RN - Reason: Patient/family refused)2101 (Given - Provider: Rosaura Correa RN) 0900 (Not Given - Provider: Roslyn Foley RN - Reason: Patient/family refused) tamsulosin (FLOMAX) extended release capsule 0.4 mg 0.4 mg, oral, Daily with dinner, First dose on Wed10/09/24 at 0715, Do not crush, chew, cut, dissolve, open or otherwise manipulate tablet/capsule. 1713 (Given - Provider: Joyce Guillen RN) 1847 (Given - Provider: Fe Brower RN) Continuous [...] Esparza RN)0850 (New Bag - Provider: Joyce Guillen RN)1923 (Handoff - Provider: Joyce Guillen RN) 1314 (Stopped - Provider: Fe Brower RN - Comment: iv infusion completed on current bag but infusion because of loss of iv access.)1624 (New Bag - Provider: Fe Brower RN)210 (Stopped - Provider: Rosaura Correa RN) sodium chloride 0.9% infusion (CANCELED) 100 mL/hr, intravenous, Continuous, Starting on Wed10/11/24 at 0530 0856 (New Bag - Provider: Joyce Guillen RN - Comment: New bag + rate/dose change)2107 (New Bag - Provider: Rita Beverly) 0720 (New Bag - Provider: Rita Beverly)210 (New Bag - Provider: Rosaura Correa, MARK) 1033 (Stopped - Provider: Roslyn Foley RN) PRN Medication Order 10/12/2024 10/13/2024 10/14/2024 acetaminophen (TYLENOL) tablet 1,000 mg 1,000 mg, oral, Every 6 hours PRN, 1st line for pain, fever, Starting on Tyra 10/05/24 at 1315, Phase I & Post-op Floor 0103 (Given - Provider: Rita Beverly)1847 (Given - Provider: Fe Brower RN) 0952 (Given - Provider: Fe Brower RN) Carrier Fluids for Secondary Infusion - 0.9% [...] 6 hours PRN, nausea, vomiting, Starting on 10/02/24 at 1933, Phase I & Post-op Floor, Proceed to trimethobenzamide if no relief within 30 minutes. , Indications: Nausea and Vomiting oxyCODONE (ROXICODONE) tablet 5 mg 5 mg, oral, Every 4 hours PRN, 2nd line for pain, Starting on 10/02/24 at 1933, Phase I & Post-op Floor, May repeat in 1 hour if pain is uncontrolled or increasing. Max 2 doses within 1 dosing interval., Indications: Pain 0628 (Given - Provider: Mauricio Esparza RN)1425 (Given - Provider: Joyce Guillen RN)1837 (Given - Provider: Joyce Guillen RN) 0103 (Given - Provider: Rita Beverly)0628 (Given - Provider: Rita Beverly)1637 (Given - Provider: Fe Brower RN)2102 [...] Count Last Ordered Date First Ordered Date apixaban (ELIQUIS) tablet 5 mg 1 10/13/2024 bisacodyL (DULCOLAX) suppository 10 mg 2 10/02/2024 sodium chloride 0.9% infusion 3 10/11/2024 10/02/2024 heparin in 0.45% sodium chlo ride 25,000 units/250 mL (100 units/mL) infusion (premix) 1 10/10/2024 tamsulosin (FLOMAX) extended release capsule 0.4 mg 2 10/09/2024 10/02/2024 hydrALAZINE (APRESOLINE) injection 10 mg 1 10/08/2024 acetaminophen (TYLENOL) tablet 1,000 mg 3 1 12/05/2023 10/02/2024 dexAMETHasone (DECADRON) tablet 1 mg 3 09/22 dexAMETHasone (DECADRON) tablet 2 mg 1 09/22 dexAMETHasone (DECADRON) tablet 4 mg 3 09/2210/02/2024 phenylephrine in 0.9% sodium chloride (LUCIO-SYNEPHRINE) 25,000 mcg/250 mL (100 mcg/mL) infusion (premix) solution 5 10/05/202410/02 azithromycin (ZITHROMAX) tablet 500 mg 1 cefTRIAXone (ROCEPHIN) 2,000 mg/20 mL in sterile water (premix) 2,000 mg 1 10/04/2024 lidocaine (PF) (XYLOCAINE) 1 0 mg/mL (1 %) preservative free injection 10-20 mg 1 10/03/2024 magnesium sulfate 2 g/50 mL in water (premix) 2 g 1 10/03/2024 sodium chloride 0.9% bolus 1,000 mL 1 10/03 sodium chloride 0.9% flush 5-10 mL 1 2023 sodium chloride 0.9% flush 5-20 mL 1 2023 acetaminophen (TYLENOL) 32 m g/mL oral liquid 650 mg 1 10/02/2024 acetaminophen (TYLENOL) suppository 650 mg 1 10/02/2024 acetaminophen (TYLENOL) tablet 650 mg 1 09/2024 baclofen (LIORESAL) tablet 10 mg 1 10/02/20 24 Carrier Fluids for Secondary Infusion - 0.9% Sodium Chloride 3 10/02/2024 ceFAZolin (ANCEF) 2,000 mg/2 0 mL in sterile water (premix) 2,000 mg 2 10/02/2024 dexAMETHasone (DECADRON) 0.1 mg/mL oral liquid 4 mg 1 10/02/2024 dexAMETHasone (DECADRON) 0.1 mg/mL oral liquid 6 mg 1 10/02/2024 dexAMETHasone (DECADRON) 4 m g/mL injection 4 mg 1 10/02/2024 dexAMETHasone (DECADRON) 4 m g/mL injection 6 mg 1 10/02/2024 dexAMETHasone (DECADRON) tablet 6 mg 1 09/22 docusate (COLACE) 10 mg/mL o ral liquid 100 mg 1 10/02/2024 docusate sodium (COLACE) capsule 100 mg 1 1 12/02/[address] (CYMBALTA) ext ended release capsule 30 mg 1 10/02/2024 enoxaparin (LOVENOX) syringe 30 mg 1 2023 famotidine (PEPCID) injection 20 mg 1 10/02 famotidine (PEPCID) tablet 20 mg 2 10/02/20 24 finasteride (PROSCAR) tablet 5 mg 1 024 gabapentin (NEURONTIN) capsule 300 mg 1 09/2024 HYDROmorphone (DILAUDID) injection 0.2 mg 1 10/02/2024 HYDROmorphone (DILAUDID) injection 0.4 mg 1 10/02/2024 Lactated Ringer's (LR) infusion 1 lidocaine (PF) (XYLOCAINE) 1 0 mg/mL (1 %) preservative free injection 2-10 mg 1 10/02/2024 naloxone (NARCAN) 0.4 mg/mL injection 0.04-0.4 mg 1 10/02/2024 ondansetron (ZOFRAN) injection 4 mg 2 10/02 oxyCODONE (ROXICODONE) tablet 5 mg 2 2023 polyethylene glycol (MIRALAX) packet 17 g 1 10/02/2024 senna (SENOKOT) tablet 1 tablet 1 senna 1.76 mg/mL syrup 8.8 mg 1 10/02/2024 sodium chloride 0.9% flush 0.5-20 mL 5 09/22 traMADoL (ULTRAM) tablet 50 mg 1 10/02/2024 vancomycin 1500 mg/515 mL in sodium chloride 0.9% (premix) 1,500 mg 2 10/02/2024 Imaging Orders Without Results Count Last [...] COVID: Suspected 10/04/2024 10/04/2024 10/04/2024 11:18 AM INSTRUCTOR OF NURSING documented as of this encounter Care Teams Mobile Marketing Manager Relationship Specialty Start Date End Date Sj Benson MD [address] [place] [address] PCP - General Family Medicine 07/05/24 documented as of this encounter
--- OUTSIDE RECORDS SUMMARY | 2024-11-14 16:24 | XMS_ITS | Encounter Summary ---
Author Organization [facility] Healthcare Address [address] [place] [address] Care Team Providers Care Material Control Analyst Name Role Phone Sj Benson MD Primary Care Provider [phone] Reason for Visit * MRI/CAT/PET Scan (Routine) - Closed Specialty Diagnoses / Procedures Referred By Contac t Referred To Contact Procedures Neuro MR Outside Reference James Robles MD [address] [facility] [address] [place] [address] Phone: tel: fax: Referral ID Status Reason Start Date Expiration Date Visits Re quested Visits Authorized [id number] Closed 07/11/2024 08/10/2025 1 1 Encounter Details Date Type Department Care Team (Latest Contact Info) Description 07/11/2024 6:31 PM CDT - 07/11/2024 11:59 PM CDT Hospital Encounter [facility] ([facility]) [address] [place] [id number] Discharge Disposition: Discharge to home or [...] on file Legal Sex Male 12:23 PM OB/GYN NURSE Gender Identity Not on file Sexual Orientation [...] Comments NEURO MR OUTSIDE REFERENCE Routine 07/11/2024 6:31 PM CDT documented in this encounter Results * Neuro MR Outside Reference (07/11/2024 6:31 PM CDT) Impressions RAD[facility]PACS_[facility] - 07/11/2024 6:31 PM CDT These images are for Reference purposes only and have not been reviewed by [facility] Radiology. ??There will be no report generated by a [facility] Radiologist. Narrative RAD_PACS_[facility] - 07/11/2024 6:31 PM CDT EXAMINATION: ??Images For Reference Purposes Only us James Robles MD IMG MRI PROCEDURES Final Result RAD_PACS_[facility] documented in this encounter Visit Diagnoses Not on filedocumented in this encounter Care Teams Material Control Analyst Relationship Specialty Start Date End Date Sj Benson MD [address] [facility] [place] [address] PCP - General Family Medicine 07/05/24 documented as of this encounter
--- OUTSIDE RECORDS SUMMARY | 2024-11-14 16:24 | XMS_ITS | Encounter Summary ---
Author Organization [facility] Healthcare Address [address] [place] [address] Care Team Providers Care Cork Painter And Grader Name Role Phone Sj Benson MD Primary Care Provider [phone] Encounter Details Date Type Department Care Team (Latest Contact Info) Description 07/21/2024 6:56 AM CDT - 07/21/2024 11:59 PM CDT Hospital Encounter [facility] Neuro Interventional Radiology [address] [place] [address] Thoracic myelopathy Discharge Disposition: Discharge to home or self [...] on file Legal Sex Male 12:[address] Gender Identity Not on file Sexual Orientation Not on file documented as of this encounter Last Filed Vital Signs Vital Sign Reading Time Taken Comments Blood Pressure 133/81 07/21/2024 9:34 AM CDT Pulse 57 07/21/2024 9:34 AM CDT Temperature 36.5 ??C (97.7 ??F) 07/21/2024 9:13 AM CD T Respiratory Rate 16 07/21/2024 9:34 AM CDT Oxygen Saturation 96% 07/21/2024 9:34 AM CDT Inhaled Oxygen Concentration - - Weight - - Height - - Body Mass Index - - documented in this encounter Discharge Instructions * Discharge Instructions* Gabriel Tovar MD - 07/21/2024 8:41 AM CDT Neuroradiology Spine Procedure Outpatient Discharge Instructions Procedure: Myelogram Discharge Instructions: Do not drive, operate machinery, or drink alcohol until tomorrow Do not smoke Stay with a responsible adult tonight Do not make any legal or important decisions for 24 hours Do not take any additional pain medications, sleeping pills or sedatives unless ok'd by your doctor Special Instructions: Activity: No lifting or exercise for at least 24 hours Diet: Drink plenty of fluids and resume previous diet Medications: Continue present medications Procedure: Change dressing as needed Site care: Bathe or shower after 24 hours Follow up care: No appointment necessary-return only if problems develop Please call one of the neuroradiologists for any of the following: Any questions or problems Hematoma (extreme bruising at the site) Drainage from site Fever Bleeding (M-F 7:30am-4:00pm, . After hours call [phone], ask for the diagnostic neuroradiologist construction economist) documented in this encounter Medications at Time [...] or self care documented in this encounter Miscellaneous Notes * Post-Procedure Note - Gabriel Tovar MD - 07/21/2024 8:00 AM CDT Radiology Brief Post Procedure Note Attending: Dr. Miller Cricket Coach: Dr. Tovar Sedation/Anesthesia: Local Pre-Op/Pre-Procedure Diagnosis: Thoracic myelopathy Post-Op/Post-Procedure Diagnosis: Same Procedure Performed: FL guided lumbar puncture at L4-L5 with total spine myelogram Procedure Findings: Successful lumbar puncture and total spine myelogram Complications: None Estimated Blood Loss: <30cc Specimens: none Condition: Stable Full report to follow. * Pre-Procedure Note - Gabriel Tovar MD - 07/21/2024 8:00 AM CDT Neuro spine pre-procedure Note Chief complaint: thoracic myelopathy Have you taken any blood thinners within the last 30 days? Include last dose taken. No PMH: No past medical history on file. Allergies: Allergies Allergen Reactions Sulfa Dyne Unknown Sulfa Other (See comments) and Unknown Meds: Current Outpatient Medications: amoxicillin-clavulanate (AUGMENTIN) 875-125 mg per tablet, TK 1 T PO Q 12 H FOR 7 DAYS, Disp: , Rfl: azithromycin (ZITHROMAX) 250 mg tablet, TAKE 2 TABLETS (500 MG) BY ORAL ROUTE ONCE DAILY FOR 1 DAY THEN 1 TABLET (250 MG) BY ORAL ROUTE ONCE DAILY FOR 4 DAYS, Disp: , Rfl: baclofen (LIORESAL) 10 mg tablet, Take 1 tablet (10 mg total) by mouth 2 (two) times a day, Disp: ,Rfl: bethanechol (URECHOLINE) 25 mg tablet, Take 1 tablet (25 mg total) by mouth 2 (two) times a day, Disp: , Rfl: DULoxetine DR (CYMBALTA) 30 mg capsule, Take 1 capsule (30 mg total) by mouth 2 (two) times a day, Disp: , Rfl: finasteride (PROSCAR) 5 mg tablet, Take 1 tablet (5 mg total) by mouth daily, Disp: , Rfl: gabapentin (NEURONTIN) 100 mg capsule, Take 2 capsules every day by oral route as directed for 30 days., Disp: , Rfl: hyoscyamine (LEVSIN) 0.125 mg SL tablet, Place 1 tablet every 8 hours by sublingual route as neededfor 90 days., Disp: , Rfl: meclizine (ANTIVERT) 12.5 mg tablet, Take 1 tablet every 6-8 hours by oral route as needed for 10 days., Disp: , Rfl: naloxone (NARCAN) 4 mg/actuation spray,non-aerosol, CALL 911. SPR CONTENTS OF ONE SPRAYER (0.1ML) INTO ONE NOSTRIL. REPEAT IN 2-3 MIN IF SYMPTOMS OF OPIOID EMERGENCY PERSIST, ALTERNATE NOSTRILS, Disp: , Rfl: omeprazole (PriLOSEC) 20 mg capsule, Take 1 capsule (20 mg total) by mouth daily, Disp: , Rfl: predniSONE (DELTASONE) 10 mg tablet, Take 1 tablet every day by oral route as directed for 7 days.,Disp: , Rfl: promethazine-codeine (PHENERGAN with CODEINE) 1.25-2 mg/mL syrup, Take 5 mL EVERY 6 HOURS by oral route prn cough, Disp: , Rfl: rivaroxaban (Xarelto) 15 mg tablet, Take 1 tablet twice a day by oral route for 21 days., Disp: , Rfl: Saccharomyces boulardii (Florastor) 250 mg capsule, every 12 hours, Disp: , Rfl: tamsulosin (FLOMAX) 0.4 mg extended release capsule, TAKE 1 CAPSULE BY MOUTH EVERY DAY AT BEDTIME, Disp: , Rfl: traMADoL (ULTRAM) 50 mg tablet, Take 1 tablet (50 mg total) by mouth daily, Disp: , Rfl: Prior to Admission medications Medication Sig Start Date End Date Taking? Authorizing Provider amoxicillin-clavulanate (AUGMENTIN) 875-125 mg per tablet TK 1 T PO Q 12 H FOR 7 DAYS Zachery Rashid MD azithromycin (ZITHROMAX) 250 mg tablet TAKE 2 TABLETS (500 MG) BY ORAL ROUTE ONCE DAILY FOR 1 DAY THEN 1 TABLET (250 MG) BY ORAL ROUTE ONCE DAILY FOR 4 DAYS Zachery Rashid MD baclofen (LIORESAL) 10 mg tablet Take 1 tablet (10 mg total) by mouth 2 (two) times a day 04/18/24 Zachery Rashid MD bethanechol (URECHOLINE) 25 mg tablet Take 1 tablet (25 mg total) by mouth 2 (two) times a day Zachery Rashid MD DULoxetine DR (CYMBALTA) 30 mg capsule Take 1 capsule (30 mg total) by mouth 2 (two) times a day 04/10/24 Zachery Rashid MD finasteride (PROSCAR) 5 mg tablet Take 1 tablet (5 mg total) by mouth daily 05/23/24 Zachery Rashid MD gabapentin (NEURONTIN) 100 mg capsule Take 2 capsules every day by oral route as directed for 30 days. Zachery Rashid MD hyoscyamine (LEVSIN) 0.[address] 1 tablet every 8 hours by sublingual route as needed for 90 days. 11/10/23 Zachery Rashid MD meclizine (ANTIVERT) 12.5 mg tablet Take 1 tablet every 6-8 hours by oral route as needed for 10 days. Zachery Rashid MD naloxone (NARCAN) 4 mg/actuation spray,non-aerosol CALL 911. SPR CONTENTS OF ONE SPRAYER (0.1ML) INTO ONE NOSTRIL. REPEAT IN 2-3 MIN IF SYMPTOMS OF OPIOID EMERGENCY PERSIST, ALTERNATE NOSTRILS Zachery Rashid MD omeprazole (PriLOSEC) 20 mg capsule Take 1 capsule (20 mg total) by mouth daily Zachery Rashid MD predniSONE (DELTASONE) 10 mg tablet Take 1 tablet every day by oral route as directed for 7 days. Zachery Rashid MD promethazine-codeine (PHENERGAN with CODEINE) 1.25-2 mg/mL syrup Take 5 mL EVERY 6 HOURS by oral route prn cough Zachery Rashid MD rivaroxaban (Xarelto) 15 mg tablet Take 1 tablet twice a day by oral route for 21 days. Zachery Rashid MD Saccharomyces boulardii (Florastor) 250 mg capsule every 12 hours Zachery Rashid MD tamsulosin (FLOMAX) 0.4 mg extended release capsule TAKE 1 CAPSULE BY MOUTH EVERY DAY AT BEDTIME 04/10/24 Zachery Rashid MD traMADoL (ULTRAM) 50 mg tablet Take 1 tablet (50 mg total) by mouth daily Zachery Rashid MD Pertinent physical exam: General Appearance: awake, alert, oriented, in no acute distress Lungs-clear on auscultation Heart-Regular rate and rhythm Vitals: There were no vitals filed for this visit. Labs: No recent labs Imaging: recent MR and radiographs Assessment and Plan: patient with prior thoracic and lumbar posterior decompression with worsening thoracic myelopathy on recent MR. Myelogram for further evaluation. documented in this encounter Plan of Treatment Not on file documented as of this encounter Procedures Procedure Name Priority Date/Time Associated Diagnosis Comments MYELOGRAM 3 LEVEL Schedule Routine, Read Routine (OP Routine) 07/21/2024 8:49 AM CDT 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 Results * Myelogram 3 Level (07/21/2024 8:49 AM [...] and [address] Burroughs (radiology aide) was present and participated in the procedure. [...] and [address] Burroughs (radiology aide) was present and participated in the procedure. [...] Ortega Juarez M.D, PHD James Robles MD IMG IR PROCEDURES Final Result documented in this encounter Visit Diagnoses Diagnosis 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 Administered Medications Inactive Administered Medications - up to 3 most recent administrations Medication Order MAR Action Action Date Dose Rate Site iohexoL (OMNIPAQUE) 300 mg iodine/mL injection solution As needed, Starting on Wed07/21/24 at 0839, Intra-Op Given 07/21/2024 8:39 AM CDT 10 mL lidocaine (PF) (XYLOCAINE) 10 mg/mL (1 %) preservative free injection As needed, Starting on Wed07/21/24 at 0829, Intra-Procedure (IR), Indications: Administration of Local AnesthesiaIndications:Administratio n of Local Anesthesia Given 07/21/2024 8:29 AM CDT 5 mL Back documented in this encounter Orders Discharge Count Last Ordered Date First Orde red Date DISCHARGE PATIENT 1 07/21/2024 documented in this encounter Care Teams Cork Painter And Grader Relationship Specialty Start Date End Date Sj Benson MD [address] [facility] [place] [address] PCP - General Family Medicine 07/05/24 documented as of this encounter
--- OUTSIDE RECORDS SUMMARY | 2024-11-14 16:24 | XMS_ITS | Encounter Summary ---
Author Organization [facility] Address [address] [facility] [address] [place] [address] Phone Care Team Providers Care Personal Vehicle Advisor Name Role Phone Sj Benson MD Primary Care Provider [phone] Reason for Visit * Consultation (Routine) - Closed Specialty Diagnoses / Procedures Referred By Hector t Referred To Contact Neurosurgery Diagnoses Thoracic myelopathy Riley Huddleston MD [address] [facility] [address] [place] [address] Phone: tel: fax: James Robles MD [address] [place] [address] Phone: tel: fax: Referral ID Status Reason Start Date Expiration Date V isits Requested Visits Authorized [id number] Closed Specialty Services Required 07/05/2024 08/04/2025 1 1 Encounter Details Date Type Department Care Team (Late st Contact Info) Description 07/12/2024 1:15 PM CDT Office Visit 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 NEW PATIENT VISIT CHIEF COMPLAINT Back and spine problems HISTORY OF PRESENT ILLINESS I had the pleasure of seeing Ryan Delgado in clinic on July 12, 2024. This is a very pleasant 73 y.o. patient with medical history of lumbar spine surgery in 2020, bladder tumor removal 2020, spinal cord stimulator 2023 presenting today for surgical evaluation of thoracic myelopathy. The patient has been referred to Dr. Robles from [facility] neurosurgery, Dr. Garcia for consideration of reoperation of the thoracic spine. There are prior MRI with and without contrast of the thoracic spine on file. The patient endorses lower back pain with diffuse radiation pain numbness tingling down the legs and feet bilaterally. Denies any bowel or bladder incontinence but does notice a weak urine flow since 2020. He feels that he was balance and gait is poor. He reports difficulty standing after sitting.Denies any dexterity change. 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 Blackmon and placement of spinal cord stimulatorby Dr. Puente in November of this year. PAST MEDICAL HISTORY He has no past medical history on file. PAST SURGICAL HISTORY He has a past surgical history that includes Tumor removal (2020); Spinal cord stimulator implant (2023); and Lumbar spine surgery (2020). FAMILY HISTORY His family history is not on file. MEDICATIONS Current Outpatient Medications: amoxicillin-clavulanate (AUGMENTIN) 875-125 mg [...] total) by mouth daily, Disp: , Rfl: ALLERGIES He is allergic to sulfa dyne and sulfa. SOCIAL HISTORY He reports that he has never smoked. He has never used smokeless tobacco. Drug use questions deferred to the physician. Patient denies consuming alcoholic drinks. REVIEW OF SYSTEMS ROS Objective VITAL SIGNS Ht 182.9 cm (6') Wt 97.5 kg (215 lb) BMI 29.16 kg/m?? PHYSICAL EXAM General: Alert, cooperative in NAD Respiratory: Normal respiratory effort and chest wall movement with respiration Psychologic: appropriate affect, pleasant Neurologic: Mental Status:alert & oriented X 3 Motor: Of the lower extremities equal 5/5 Sensation intact Reflexes 3+ bilateral patellar, achilles Tamez's negative, no clonus Station and Gait: Walks with walker, ambulation without indicative of myelopathic gait Romberg: Positive REVIEW OF IMAGES Narrative & Impression EXAMINATION: XR SCOLIOSIS 6 OR MORE VIEWS [...] stimulator leads are intact and without kinking. Plan Thoracic myelopathy - CT myelogram, follow up after results For further evaluation and surgical planning, MRI of the thoracic spine with and without contrast was slightly limited given the patient's current dorsal column stimulator in place. The patient was case was reviewed with Dr. Robles. All questions were sought after and answered. This encounter took 50 minutes of time including taking a history, performing the exam, reviewing images, reviewing outside notes and documentation, discussion of diagnosis as well as documenting in the EHR. Neftaly Goetz APRN, ROGER- Nurse Practitioner [facility] Neurosurgery [facility] documented in this encounter Plan of Treatment Not on file documented as of this encounter Visit Diagnoses Diagnosis 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 Discontinued Medications Medication Sig Discontinue Reason Start Date End Da te cephalexin (KEFLEX) 500 mg capsule Therapy completed 04/14/2024 07/12/2024 HYDROcodone-acetaminophe n (NORCO) 5-325 mg per tablet Take by mouth every 6 (six) hours as needed for pain Therapy completed 06/08/2024 07/12/2024 documented as of this encounter Historical Medications * This list may reflect changes made after this encounter. Saccharomyces boulardii (Florastor) 250 mg capsuleIndicatio ns:gut health Take 1 capsule (250 mg total) by mouth every morning rivaroxaban (Xarelto) 15 mg tablet Take 1 tablet twice a day by oral route for 21 days. 4 traMADoL (ULTRAM) 50 mg tablet Take 1 tablet (50 mg total) by mouth every 8 (eight) hours as needed for pain 4 promethazine-cod eine (PHENERGAN with CODEINE) 1.25-2 mg/mL syrup Take 5 mL EVERY 6 HOURS by oral route prn cough 4 omeprazole (PriLOSEC) 20 mg capsule Take 1 capsule (20 mg total) by mouth daily 4 predniSONE (DELTASONE) 10 mg tablet Take 1 tablet every day by oral route as directed for 7 days. 4 naloxone (NARCAN) 4 mg/actuation spray,non-aeroso l CALL 911. SPR CONTENTS OF ONE SPRAYER (0.1ML) INTO ONE NOSTRIL. REPEAT IN 2-3 MIN IF SYMPTOMS OF OPIOID EMERGENCY PERSIST, ALTERNATE NOSTRILS 4 meclizine (ANTIVERT) 12.5 mg tablet Take 1 tablet every 6-8 hours by oral route as needed for 10 days. 4 hyoscyamine (LEVSIN) 0.[address] 1 tablet every 8 hours by sublingual route as needed for 90 days. 11/10/2023 4 amoxicillin-clav ulanate (AUGMENTIN) 875-125 mg per tablet TK 1 [...] route as directed for 30 days. 4 added in this encounter Orders Outpatient Referral Count Last Ordered Date Fir st Ordered Date AMB REFERRAL TO NEUROSURGERY 1 07/12/2024 documented in this encounter Care Teams Personal Vehicle Advisor Relationship Specialty Start Date End Date Sj Benson MD [address] [facility] [place] [address] PCP - General Family Medicine 07/05/24 documented as of this encounter
--- OUTSIDE RECORDS SUMMARY | 2024-11-14 16:24 | XMS_ITS | Encounter Summary ---
Author Organization [facility] Healthcare Address [address] [place] [address] Care Team Providers Care Correctional Treatment Specialist Name Role Phone Sj Benson MD Primary Care Provider [phone] Reason for Visit * Auth/Cert (Routine) Specialty Diagnoses / Procedures Referred By Contac t Referred To Contact Diagnoses Thoracic myelopathy Thoracic myelopathy [M47.14] Procedures [place] ARTHRODESIS POSTERIOR/PSTLAT TQ 1NTRSPC THORACIC [place] ROMERO EXC ISPI LES OTH/THN DANTE IDRL THORACIC [place] ARTHRODESIS PST/PSTLAT TQ 1NTRSPC EA ADDL NTRSPC AZ POSTERIOR SEGMENTAL INSTRUMENTATION 3-6 VRT SEG AZ AUTOGRAFT SPINE SURGERY LOCAL FROM SAME INCISION [place] ALLOGRAFT FOR SPINE SURGERY ONLY MORSELIZED FUSION SPINAL - POSTERIOR LUMBAR/THORACIC WITH INSTRUMENTATION; T3-5 posterior spinal fusion with 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 LAMINECTOMY THORACIC DECOMPRESSION SPINAL CORD MONITORING Referral ID Status Reason Start Date Expiration Date Visits Re quested Visits Authorized [id number] 1 1 Encounter Details Date Type Department Care Team (Late st Contact Info) Description 10/02/2024 7:29 AM CARPET CUTTER Anesthesia Event [facility] Operating Room [address] [place] [id number] Marimar Carr MD PhD [address] [place] [address] Jeronimo Burch NP [address] [facility] [id number] [place] [address] Anesthesia Record Procedure Summary Procedure Name Responsible [...] No value filed. 1559 An Stop Meds Name Total lidocaine (cardiac) syringe 2 % 80 mg propofol 3,317.6 mg succinylcholine 100 mg phenylephrine 100 mcg/mL 6.87 mg ondansetron PF (ZOFRAN) 2 mg/mL injectio n 4 mg glycopyrrolate 1 mg neostigmine injection 1 mg/mL 3 mg remifentaniL (ULTIVA) 2,000 mcg in sodium chloride 0.9% 40 mL (50 mcg/mL) infusion 5.1 mg vancomycin 1500 mg/515 mL in sodium chlo ride 0.9% (premix) 1,500 mg 1,500 mg methadone 10 mg/mL 20 mg ceFAZolin (ANCEF) 2,000 mg/20 mL in ster ile water (premix) 2,000 mg 4,000 mg rocuronium 20 mg dexAMETHasone 10 mg/mL PF 12 mg Lactated Ringer's (LR) infusion 1,010 mL NS 0.9% 2,000 mL * Agents Name O2% N2O O2 Air Sevoflurane Inspired Sevoflurane * Blood No blood administrations on [...] on file 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 Gender Identity Not on file Sexual Orientation Not on file documented as of this encounter OR Notes * Anesthesia Postprocedure Evaluation - Shanelle Castillo MD - 10/02/2024 5:16 PM CST Patient: Ryan Delgado Procedure Summary Date: 10/02/24 Room / Location: [facility] OR POD 5 ROOM [facility] / [facility] OR POD 5 Anesthesia Start: 728 Anesthesia Stop: 155 Procedures: POSTERIOR LUMBAR/THORACIC WITH INSTRUMENTATION 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 (Spine Lumbar) LAMINECTOMY THORACIC DECOMPRESSION (Spine Lumbar) SPINAL CORD MONITORING Diagnosis: Thoracic myelopathy (Thoracic myelopathy [M47.14]) Surgeons: James Robles MD Responsible Provider: Marimar Carr MD PhD Anesthesia Type: general TIVA ASA Status: 2 Anesthesia Type: general TIVA Last vitals BP 167/86 Pulse 68 Temp 36.2 ??C (97.2 ??F) (Temporal) Resp 20 SpO2 100% Anesthesia Post Evaluation Patient location during evaluation: PACU Patient participation: complete - patient participated Level of consciousness: fully awake Pain score: 6 Pain management: satisfactory to patient Airway patency: adequate Evidence of recall: no Cardiovascular status: hemodynamically stable Respiratory status: room air Hydration status: acceptable Pt is: normothermic Nausea/Vomiting status: none Comments: Patient is hemodynamically stable, BP being augmented with phenylephrine per surgical request. Pain improving and tolerable. Sating 99 on 2LNC. Patient ready to discharge from PACU to ICU. No notable events documented. ET CUTTER ET CUTTER * Anesthesia Procedure Notes - Vance Morales MD - 10/02/2024 8:32 AM CARPET CUTTER Associated Order(s): Arterial Line Arterial Line Patient location: OR Indication: continuous [...] patient tolerated procedure well with no complications ET CUTTER * Anesthesia Procedure Notes - Vance Morales MD - 10/02/2024 8:31 AM CARPET CUTTER Associated Order(s): Airway Airway Patient location: OR Urgency: elective Indications [...] of attempts: 1 Planned trial extubation: yes ET CUTTER * Anesthesia Preprocedure Evaluation - Marimar Carr MD PhD - 09/13/2024 10:58 AM CDT Images from the original note were not included. [facility] Preoperative Assessment and Planning Preoperative Evaluation Record Evaluation type/location: [facility] Planned procedure site: [facility] (Pods 2/3/5/SUPERVISOR OF OFFICIALS) Date: 09/13/24 Anesthesia Evaluation Ryan Delgado is a 73 y.o. male FUSION SPINAL - POSTERIOR LUMBAR/THORACIC WITH INSTRUMENTATION T3-5 posterior spinal fusion with 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 (Spine Lumbar) LAMINECTOMY THORACIC DECOMPRESSION (Spine Lumbar) SPINAL CORD MONITORING Pre-Op Diagnosis Codes: * Thoracic myelopathy [M47.14] HISTORY HPI Ryan Delgado is a 73 year old male [...] 2020. Pertinent negatives: hypertension ; CAD ; NV ; CABG ; valvular heart disease; valve [...] assessment status: lab tests ordered. Additional comments: yRan Delgado is a 73 y.o. male who [...] vein thrombosis (DVT) of upper extremity (CMS/HCC) (HCC) 09/29/2021 Essential (primary) hypertension 08/04/2021 Abnormal EKG [...] (BACTROBAN) 2 % ointment -- 07/27/24 -- Jaems Robles MD Apply to each nostril 2 [...] Medications: baclofen (LIORESAL) 10 mg tablet DULoxetine (CYMBALTA) 30 mg capsule finasteride (PROSCAR) 5 [...] Score: 0 Short Blessed Total Score: 0 DOS Physical Exam Medical history, medications, and allergies reviewed. Attestation: With today's edits, I endorse the findings of the anesthesia pre-evaluation assessment dated: 09/13/2024. Airway Exam: Mallampati: II Cervical ROM: FROM TM distance: >4 Patient presents with thick neck. Upper lip bite test class: 2 Cardiovascular Exam: Rate: regular Rhythm: regular Pulmonary Exam: LCTA, bilat EENT Exam: trachea midline Dental Exam: Missing and otherwise appears intact (Missing lower molars. States he has permanent bridges) Current state: Patient's current state is cooperative and interactive. Anesthesia Plan ASA 2 My patient is approved for the Anesthesia Controlled Medication protocol when under care of a FABRIC WORKER FOREMAN Planned anesthesia: General TIVA Team communication plan: oral ET tube Invasive Monitors Planned: Invasive monitors planned: arterial line. Induction: Induction: intravenous. Postoperative Plan: Postoperative administration opioids intended. No postoperative mechanical ventilation intended. Planned trial extubation. Informed Consent: Discussed plan with resident. Anesthesia plan and risks discussed with patient and spouse. Consent and Attending signature: I and/or my designee have discussed the anesthesia plan, benefits, possible alternatives, parental presence at time of induction (if indicated), and clinically relevant risks that may include dental injury, unintentional awareness, and/or other complications. The patient and/or parent/legal guardian understand, and agree to proceed. All questions answered. ET CUTTER documented in this encounter Plan of Treatment Not on file documented as of this encounter Procedures Procedure Name Priority Date/Time Associated Diagnosis Comments ANESTHESIA ARTERIAL LINE PLACEMENT Routine 10/02/2024 8:32 AM CARPET CUTTER ANESTHESIA INTUBATION Routine 10/02/2024 8:31 AM CARPET CUTTER documented in this encounter Results * Arterial Line (10/02/2024 8:32 AM CARPET CUTTER) Narrative Vance Morales MD - 10/02/2024 8:32 AM CARPET CUTTER Vance Morales MD ? 10/02/2024 ??8:32 AM [...] patient tolerated procedure well with no complications us Marimar Carr MD PhD ANESTHESIA ORDERABLES Final Result * Airway (10/02/2024 8:31 AM CARPET CUTTER) Narrative Vance Morales MD - 10/02/2024 8:31 AM CARPET CUTTER Vance Morales MD ? 10/02/2024 ??8:32 AM [...] Carr MD PhD ANESTHESIA ORDERABLES Final Result documented in this encounter Visit Diagnoses Not on filedocumented in this encounter Administered Medications Inactive Administered Medications - up to 3 most recent administrations Medication Order MAR Action Action Date Dose Rate Site ceFAZolin (ANCEF) 2,000 mg/20 mL in sterile water (premix) 2,000 mg 2,000 mg, intravenous, at 400 mL/hr, Administer over 3 Minutes, Once, On Wed10/02/24 at 0630, For 1 dose, Pre-Op, Administer within 60 minutes of incision., Indications: Prophylaxis, SurgicalIndications:Prophylaxis , Surgical Given 10/02/2024 12:50 PM CARPET CUTTER 2,000 mg Given 10/02/2024 9:05 AM CARPET CUTTER 2,000 mg dexAMETHasone (DECADRON) preservative free solution intralumbar, Administer over 2 Minutes, As needed, Starting on Wed10/02/24 at 1208, Anesthesia Intra-op Given 10/02/2024 12:08 PM CARPET CUTTER 12 mg glycopyrrolate (ROBINUL) injection intravenous, Administer over 1 Minutes, As needed, Starting on Wed10/02/24 at 0757, Anesthesia Intra-op Given 10/02/2024 2:30 PM CARPET CUTTER 0.6 mg Given 10/02/2024 7:57 AM CARPET CUTTER 0.4 mg Lactated Ringer's (LR) infusion 30 mL/hr, intravenous, Continuous, Starting on Wed10/02/24 at 0630, Pre-Op Restarted 10/02/2024 3:02 PM CARPET CUTTER Rate/Dose Change 10/02/2024 8:33 AM CARPET CUTTER 30 mL/h r Rate/Dose Verify 10/02/2024 7:29 AM CARPET CUTTER 30 mL/h r lidocaine (cardiac) (XYLOCAINE) preservative free injection intravenous, As needed, Starting on Wed10/02/24 at 0735, Anesthesia Intra-op, Indications: Ventricular ArrhythmiasIndications:Ve ntricular Arrhythmias Given 10/02/2024 7:35 AM CARPET CUTTER 80 mg methadone injection syringe intravenous, As needed, Starting on Wed10/02/24 at 0735, Anesthesia Intra-op Given 10/02/2024 7:35 AM CARPET CUTTER 20 mg neostigmine (PROSTIGMIN) injection intravenous, Administer over 3 Minutes, As needed, Starting on Wed10/02/24 at 1430, Anesthesia Intra-op Given 10/02/2024 2:30 PM CARPET CUTTER 3 mg ondansetron (ZOFRAN) injection intravenous, Administer over 2 Minutes, As needed, Starting on Wed10/02/24 at 1429, Anesthesia Intra-op Given 10/02/2024 2:29 PM CARPET CUTTER 4 mg phenylephrine (DANTE-SYNEPHRINE) 1 mg/10 mL (100 mcg/mL) in sodium chloride 0.9% (premix) intravenous, As needed, Starting on Wed10/02/24 at 0735, Anesthesia Intra-op Rate/Dose Change 10/02/2024 3:31 PM CARPET CUTTER 0.5 mcg/kg/min 29.67 mL/hr Rate/Dose Change 10/02/2024 3:25 PM CARPET CUTTER 0.3 mcg/kg/min 17. 802 mL/hr Rate/Dose Change 10/02/2024 3:13 PM CARPET CUTTER 0.1 mcg/kg/min 5.9 34 mL/hr propofoL (DIPRIVAN) 10 mg/mL IV intravenous, Continuous PRN, Starting on Wed10/02/24 at 0810, Anesthesia Intra-op Rate/Dose Change 10/02/2024 1:43 PM CARPET CUTTER 80 mcg/kg/min 47.472 mL/hr Rate/Dose Change 10/02/2024 1:24 PM CARPET CUTTER 90 mcg/kg/min 53.4 06 mL/hr Given 10/02/2024 1:23 PM CARPET CUTTER 40 mg remifentaniL (ULTIVA) 2,000 mcg in sodium chloride 0.9% 40 mL (50 mcg/mL) infusion intravenous, Continuous PRN, Starting on Wed10/02/24 at 0808, Anesthesia Intra-op Rate/Dose Change 10/02/2024 3:01 PM CARPET CUTTER 0.05 mcg/kg/min 5.934 mL/hr Rate/Dose Change 10/02/2024 2:58 PM CARPET CUTTER 0.1 mcg/kg/min 11. 868 mL/hr Rate/Dose Change 10/02/2024 12:48 PM CARPET CUTTER 0.15 mcg/kg/min 1 7.802 mL/hr rocuronium (ZEMURON) injection intravenous, As needed, Starting on Wed10/02/24 at 0926, Anesthesia Intra-op Given 10/02/2024 9:26 AM CARPET CUTTER 20 mg sodium chloride 0.9% infusion intravenous, Continuous PRN, Starting on Wed10/02/24 at 0833, Anesthesia Intra-op Restarted 10/02/2024 10:25 AM CARPET CUTTER New Bag 10/02/2024 8:33 AM CARPET CUTTER 50 mL/hr New Bag 10/02/2024 7:35 AM CARPET CUTTER 50 mL/hr succinylcholine syringe intravenous, As needed, Starting on Wed10/02/24 at 0735, Anesthesia Intra-op Given 10/02/2024 7:35 AM CARPET CUTTER 100 mg vancomycin 1500 mg/515 mL in sodium chloride 0.9% (premix) 1,500 mg 1,500 mg, intravenous, Administer over 90 Minutes, Once, On Wed10/02/24 at 0630, For 1 dose, Pre-Op, Administer within 120 minutes of incision., Indications: Prophylaxis, SurgicalIndications:Prophylaxis, Surgical Given 10/02/2024 8:13 AM CARPET CUTTER 1,500 mg documented in this encounter Care Teams Correctional Treatment Specialist Relationship Specialty Start Date End Date Sj Benson MD [address] [place] [address] PCP - General Family Medicine 07/05/24 documented as of this encounter
--- OUTSIDE RECORDS SUMMARY | 2024-11-14 16:24 | XMS_ITS | Encounter Summary ---
Author Organization [facility] Address [address] [place] [address] Phone Care Team Providers Care Soda Room Operator Name Role Phone Sj Benson MD Primary Care Provider [phone] Encounter Details Date Type Department Care Team (Late st Contact Info) Description 07/26/2024 8:45 AM CDT Office Visit [facility] Medical Office Building [address] [place] [address] James Robles MD [address] [place] [address] Thoracic myelopathy (Primary Dx) Social History Tobacco Use Types Packs/Day Years Used Date Smoking Tobacco: Never Smokeless Tobacco: Never Tobacco Cessation:Counseling Given: No AUDIT-C Answer Date Recorded Q1: How often [...] on file 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 Subjective: - Reason for consultation: Complex spinal cord compression at T4 level - Hx of presenting complaint: - Progressive difficulty walking, unsteady gait - Diffuse pain: lower extremities, right groin, back - Burning sensation in legs (L>R) - Leg weakness, occasional melting sensation - Difficulty standing >1 min - Dropping objects - PMHx: - Tethered spinal cord surgery (2010, Dr. Wills, [facility]) - Lower back surgery - Spinal cord stimulator placement (T7-T8, Nov 2023) - Medications: None mentioned for pain - Social Hx: Limited mobility, uses walker (previously cane) Objective: - Vitals: Not provided - Physical exam: - Gait: Ataxic, high fall risk - R leg: Toe drag, slapping gait - Strength: - Quad: R 4+/5, L 5/5 - Hip flexors: R 4-/5, L 4/5 - Dorsiflexion: R 4+/5, L 5/5 - Plantar flexion: 5/5 bilaterally - Reflexes: - Patellar: R 4+, L 3+ - Upper extremities: Negative Tamez's bilaterally - Upper extremity strength: Normal - Imaging: - CT myelogram: Spinal cord compression at T4, 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 Gait instability - Continue walker use for safety 3. Chronic neuropathic pain - Likely long-standing due to spinal cord irritation - May not fully resolve with surgery Additional Notes: - Patient education provided on surgical procedure, risks, and expected outcomes - Consent obtained for surgery - Pre-op clearance: No major comorbidities noted documented in this encounter Plan of Treatment Not on file documented as of this encounter Visit Diagnoses Diagnosis Thoracic myelopathy- Primary documented in this encounter Care Teams Soda Room Operator Relationship Specialty Start Date End Date Sj Benson MD [address] [facility] [place] [address] PCP - General Family Medicine 07/05/24 documented as of this encounter
--- OUTSIDE RECORDS SUMMARY | 2024-11-14 16:24 | XMS_ITS | Encounter Summary ---
Author Organization [facility] Facility Care Team Providers Care Pulmonology Technician Name Role Phone Unavailable Primary Care Provider Unavailabl e Encounter Details Date Type Department Care Team (Late st Contact Info) Description 06/04/2009 - 06/04/2009 11:59 PM CDT Hospital Encounter [facility] Feliciano Fraser MD [address] [place] [address] DR DEPT NEUROSURGERY, [place] [address] Degeneration of lumbar or lumbosacral intervertebral disc Social History Tobacco Use Types Packs/Day Years Used Date Smoking Tobacco: Never Assessed Sex and Gender Information Value Date Recorded Sex Assigned at Not on file 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
--- OUTSIDE RECORDS SUMMARY | 2024-11-14 16:24 | XMS_ITS | Encounter Summary ---
Author Organization [facility] Facility Care Team Providers Care Senior Medical Transcriptionist Name Role Phone Unavailable Primary Care Provider Unavailabl e Encounter Details Date Type Department Care Team (Late st Contact Info) Description 06/11/2009 - 06/11/2009 11:59 PM CDT Hospital Encounter [facility] Feliciano Fraser MD [address] [place] [address] DR DEPT NEUROSURGERY, [place] [address] Degeneration of cervical intervertebral disc Social History Tobacco Use Types Packs/Day Years Used Date Smoking Tobacco: Never Assessed Sex and Gender Information Value Date Recorded Sex Assigned at Not on file 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
--- OUTSIDE RECORDS SUMMARY | 2024-11-14 16:24 | XMS_ITS | Encounter Summary ---
Author Organization [facility] Facility Care Team Providers Care Disease Case Manager Rn Name Role Phone Unavailable Primary Care Provider Unavailabl e Encounter Details Date Type Department Care Team (Late st Contact Info) Description 02/20/2008 - 02/20/2008 11:59 PM CDT Hospital Encounter [facility] CLINCON[facility]pe Fenton MD [address] [place] [address] Social History Tobacco Use Types Packs/Day Years Used Date Smoking Tobacco: Never Assessed Sex and Gender Information Value Date Recorded Sex Assigned at Not on file 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
--- OUTSIDE RECORDS SUMMARY | 2024-11-14 16:24 | XMS_ITS | Encounter Summary ---
Author Organization [facility] Healthcare Address [address] [place] [address] Care Team Providers Care Plastic Mixer Name Role Phone Sj Benson MD Primary Care Provider [phone] Reason for Referral * MRI/CAT/PET Scan (Routine) - Closed Specialty Diagnoses / Procedures Referred By Hector t Referred To Contact Radiology Diagnoses Thoracic myelopathy Procedures CT Post Myelogram 3 Levels James Robles MD [address] [place] [address] Phone: tel: fax: [address] [phone] Referral ID Status Reason Start Date Expiration Date Visits Re quested Visits Authorized [id number] Closed 07/14/2024 08/13/2025 1 1 Reason for Visit * MRI/CAT/PET Scan (Routine) - Closed Specialty Diagnoses / Procedures Referred By Contac t Referred To Contact Radiology Diagnoses Thoracic myelopathy Procedures CT Post Myelogram 3 Levels James Robles MD [address] [place] [address] Phone: tel: fax: [address] [phone] Referral ID Status Reason Start Date Expiration Date Visits Re quested Visits Authorized [id number] Closed 07/14/2024 08/13/2025 1 1 Encounter Details Date Type Department Care Team (Latest Contact Info) Description 07/21/2024 6:56 AM CDT - 07/21/2024 11:59 PM CDT Hospital Encounter [facility] Radiology [address] 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 Burroughs (radiology asst) was present and participated in the procedure. [...] [address] Burroughs (radiology asst) was present and participated in the procedure. [...] Juarez M.D, PHD James Robles MD IMG CT PROCEDURES Final Result documented in this encounter Visit Diagnoses Diagnosis 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 Care Teams Plastic Mixer Relationship Specialty Start Date End Date Sj Benson MD [address] [facility] [place] [address] PCP - General Family Medicine 07/05/24 documented as of this encounter
--- OUTSIDE RECORDS SUMMARY | 2024-11-14 16:25 | XMS_ITS | Encounter Summary ---
Author Organization [facility] Care Team Providers Care Public Health Worker Name Role Phone Unavailable Primary Care Provider Unavailabl e Encounter Details Date Type Department Care Team (Late st Contact Info) Description 02/08/2008 - 02/08/2008 11:59 PM CDT Hospital Encounter [facility] Hanna Nicole MD [address] [place] [address] [address] [place] [address] Pain in joint, shoulder region Social History Tobacco Use Types Packs/Day Years Used Date Smoking Tobacco: Never Assessed Sex and Gender Information Value Date Recorded Sex Assigned at Not on file 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
--- OUTSIDE RECORDS SUMMARY | 2024-11-14 16:27 | XMS_ITS | Encounter Summary ---
Author Organization [facility] Address [address] [place] [address] Care Team Providers Care Silver Recovery Operator Name Role Phone Unavailable Primary Care Provider Unavailabl e Encounter Details Date Type Department Care Team (Late st Contact Info) Description 07/13/2024 External Device Data [facility] ABSTRACTION Provider, Abstract NO ADDRESS ON FILE Social History Tobacco Use Types Packs/Day Years Used Date Smoking Tobacco: Never Smokeless Tobacco: Never Alcohol Use Standard Drinks/Week Comments Never 0 (1 standard drink = 0.6 oz pur e alcohol) Sex and Gender Information Value Date Recorded Sex Assigned at Male 06/26/2024 7:32 PM CDT Gender Identity Male 06/26/2024 7:32 PM CDT Sexual Orientation Not on file documented as of this encounter Plan of Treatment Not on file documented as of this encounter Visit Diagnoses Not on filedocumented in this encounter
--- OUTSIDE RECORDS SUMMARY | 2024-11-14 16:27 | XMS_ITS | Encounter Summary ---
Author Organization [facility] Address [address] [place] [address] Care Team Providers Care Solutions Delivery Consultant Name Role Phone Unavailable Primary Care Provider Unavailabl e Encounter Details Date Type Department Care Team (Late st Contact Info) Description 07/04/2024 External Device Data STL ABSTRACTION Provider, Abstract [...]
--- OUTSIDE RECORDS SUMMARY | 2024-11-14 16:27 | XMS_ITS | Encounter Summary ---
Author Organization [facility] Address [address] [place] [address] Care Team Providers Care Cradle Slide Maker Name Role Phone Unavailable Primary Care Provider Unavailabl e Encounter Details Date Type Department Care Team (Late st Contact Info) Description 08/22/2024 External Device Data STL ABSTRACTION Provider, Abstract [...]
--- OUTSIDE RECORDS SUMMARY | 2024-11-14 16:27 | XMS_ITS | Continuity of Care Document ---
Author Organization [facility] Address [address] [place] [address] [address] [place] [address] Phone Care Team Providers Care Bee Producer Name Role Phone Elton Sprague Unavailable Unavailable Advance Directives Directive Yes / No Effective Date File Name No Information Encounters Encounter Description Practice Location Reason(s) For Visit Diagnoses Date Provider Providers Copied on Encounter [facility], [id number] [place] [address] [address], [place], [place], [id number], [place] tel:[phone] [facility] No Information Dec-2 0-200 6 Doisy Edward. [address] , [address], [place], [address], [place]. tel:[phone] Family History Family Member Type Diagnosis Age At Onset No Information Payers Payer name Insurance type Covered constitution party ID Authoriza tion(s) BCBS [place] FEP BL [id number] Social History Type Description Quantity Date Captured Comments Sex Male Smoking Status No Information Chief Complaint And Reason For Visit No Information Reason For Referral Reason For Referral No Information History Of Present Illness Encounter Date Complaint History Of Prese nt Illness No Information Functional Status Date Functional Assessmen t No Information Instructions Date Instruction Additional Infor mation No Information Assessments Type Assessment Date No Information Patient Care Teams Name Effective Dates (start - stop) Status Members No Information
--- OUTSIDE RECORDS SUMMARY | 2024-11-14 16:27 | XMS_ITS | Patient Health Record ---
Author Organization [facility] Address [address] [place] [address] Care Team Providers Care Industrial Technician Name Role Phone Sj Benson Primary Care Provider UnavailDr. Shay Wellington Unavailable [phone] ZZ-Migration, Provider Unavailable Unavailab le Allergies Allergen (clinical drug ingredient) Drug/Non Drug Allergy documented on EMR Reaction Allergy Type Onset Date Status Substance with sulfonamide structure and antibacterial mechanism of action (substance) SULFONAMIDES (uncoded) Unknown Allergy Activ e Reason For Referral No Information Medications Medication SIG (Take, Route, Fr equency, Duration) Notes Start Date End Date Status FLORASTOR 250 mg 1 cap(s) orally 2 times a day Active FINASTERIDE 1 mg 1 tab(s) orally once a day for 30 day(s) Active Finasteride 1 MG 1 tab(s) orally once a day for 30 day(s) Active Florastor 250 MG 1 cap(s) orally 2 times a day Active TAMSULOSIN 0.4 mg 1 cap(s) orally once a day for 30 day(s) Active TRAMADOL 50 mg 1 tab(s) orally PRN Active DULOXETINE 30 mg 1 cap(s) orally 2 times a day Active DULoxetine HCl 30 MG 1 cap(s) orally 2 times a day Active traMADol HCl 50 MG 1 tab(s) orally PRN Active Tamsulosin HCl 0.4 MG 1 cap(s) orally on ce a day for 30 day(s) Active Social History Tobacco Use: Social History Observation Description Date Details (start date - stop date) Never Smoker NA - NA Smoking Smart Form: Question Answer Notes Are you a: never smoker Problems Problem Type SNOMED Code ICD Code Onset Dates Problem Status W/U Status Risk Notes Problem Chronic migraine without aura, non-refractory (disorder) (66788072365367 0) Migraine without aura, not intractable, without status migrainosus (G43.009) Active confirmed Problem Migraine with aura (7414934) Migraine with aura, not intractable, without status migrainosus (G43.109) Active confirmed Problem Chronic migraine without aura, non-intractable (34421192793332 0) Chronic migraine without aura, not intractable, without status migrainosus (G43.709) Active confirmed Problem 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 (252505777) Myelopathy in diseases classified elsewhere (G99.2) Active confirmed Problem Neuralgia (60764480) Neuralgia and neuritis, unspecified (M79.2) Active confirmed Problem Abnormal gait (64096742) Unsteadiness on feet (R26.81) Active confirmed Encounters Encounter Location Date Provider Diagnosis [facility] [address] [place] [address] 05/06/2024 Provider ZZ-Migration Plan Of Treatment Pending Test Test Name Order Date MRI : Spine, Thoracic (without gadoliniu m) 06/17/2023 Insurance Providers Payer Name Payer Address Payer Phone Subscriber Number Group Number Insured Name Patient Relationship to Insured Coverage Start Date Coverage End Date [employer] Attention Claims [address] [place] [address] [id number] Thus, Ryan Self - patient is the insured [facility] [address] [place] [address] [id number] Thus, Ryan Self - patient is the insured Medical (General) History Medical History History ICD Code H/o thoracic myelopathy (see HPI) H/o bladder cancer BPH Lumbar DDD 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
--- OUTSIDE RECORDS SUMMARY | 2024-11-14 16:27 | XMS_ITS ---
Author Organization [facility] Address [address] [place] [address] Care Team Providers Care Level Vial Sealer Name Role Phone Sj Benson Primary Care Provider Dr. Shay Joseph Unavailable [phone] REASON FOR VISIT FYI only Encounters Encounter Location Date Provider Diagnosis [facility] [address] [place] [address] 08/24/2023 Shay Acosta Plan Of Treatment No Information Progress Notes * THUS, RyanDOB:1950 ([age] yo M)Acc No.[id number]:08/24/2023 Patient:?Ryan Delgado :1950???Age:72 Y???Sex:Male Address:[address] [place] [address] * true * Date:? Generated for Printi ng/Fastewartg/eTransmitting on:?11/14/2024 04:26 PM RING CUTTER LATHE OPERATOR
--- OUTSIDE RECORDS SUMMARY | 2024-11-14 16:27 | XMS_ITS | Encounter Summary ---
Author Organization [facility] Address [address] [place] [address] Care Team Providers Care Machine Setter Name Role Phone Unavailable Primary Care Provider Unavailabl e Encounter Details Date Type Department Care Team (Late st Contact Info) Description 07/19/2024 External Device Data STL ABSTRACTION Provider, Abstract [...]
--- OUTSIDE RECORDS SUMMARY | 2024-11-14 16:27 | XMS_ITS | Encounter Summary ---
Author Organization [facility] Address [address] [place] [address] Care Team Providers Care Postmaster Name Role Phone Unavailable Primary Care Provider [...]
--- OUTSIDE RECORDS SUMMARY | 2024-11-14 16:27 | XMS_ITS | Encounter Summary ---
Author Organization [facility] Address [address] [place] [address] Care Team Providers Care Steam Brush Operator Name Role Phone Unavailable Primary Care [...]
--- OUTSIDE RECORDS SUMMARY | 2024-11-14 16:27 | XMS_ITS | Encounter Summary ---
Author Organization [facility] Address [address] [place] [address] Care Team Providers Care Mosaicist Name Role Phone Unavailable Primary Care Provider Unavailabl e Reason for Visit * Reason Comments Consult Low back, right hip, left leg burning. Encounter Details Date Type Department Care Team (Late st Contact Info) Description 06/27/2024 1:30 PM CDT Office Visit [facility] Neurosurgery [facility] [address] [facility] [address] [place] [address] Riley Huddleston MD [address] [facility] [address] [place] [address] Thoracic myelopathy (Primary Dx) Social History Tobacco [...] Sign Reading Time Taken Comments Blood Pressure 104/69 06/27/2024 1:41 PM CDT Pulse 70 06/27/2024 1:41 PM CDT Temperature 36.5 ??C (97.7 ??F) 06/27/2024 1:41 PM CD T Respiratory Rate 18 06/27/2024 1:41 PM CDT Oxygen Saturation 99% 06/27/2024 1:41 PM CDT Inhaled Oxygen Concentration - - Weight 97.9 kg (215 lb 12.8 oz) 06/27/2024 1:41 PM CDT Height 182.9 cm (6') 06/27/2024 1:41 PM CDT Body Mass Index 29.27 06/27/2024 1:41 PM CDT documented in this encounter Progress Notes * Riley Huddleston MD - 06/30/2024 9:06 AM CDT Images from the original note were not included. Visit Date: 06/30/24 Attending: [facility]eston [facility] Neuro[facility]/Orthopaedic Spine Consult CC: balance problems and leg weakness HPI Mr. Delgado is a 73 y.o. year old male patient of Dr. Benson referred for a third spinal opinion. He has been seen by Dr. Courtney Rob as well as Dr. Courtney Puente. Evaluation of myelopathy. The patient is s/p prior thoracic laminectomy for decompression many years ago. He underwent L4-5 laminectomy forstenosis with neurogenic claudication by Dr. Blackmon and placement of spinal cord stimulator by Dr. Puente in November of this year. He reports increasing problems with balance and ambulation. He denies any sensory or dexterity changes in his upper extremities. He feels that his symptoms are progressive. Review of Systems: Review of Systems Medications: baclofen DULoxetine Capsule, Delayed Release(E.C.) finasteride Saccharomyces boulardii Capsule tamsulosin traMADoL Allergies: Allergies Allergen Reactions Sulfa (Sulfonamide Antibiotics) Unknown Sulfa Dyne Unknown Past Medical History: Diagnosis Date Back pain Neuropathy 2008 Past Surgical History: Procedure Laterality Date CYSTOMETROGRAM 07/08/2021 HX BACK SURGERY 08/25/2021 L4/L5 Dr. Blackmon HX BLADDER SURGERY 06/08/2021 removed tumor HX IMPLANTED SPINAL CORD STIMULATOR 12/07/2023 HX SPINAL SURGERY 11-02-2011 Physical Exam: BP 104/69 (BP Location: Left arm, Patient Position (BP): Sitting, BP Cuff Size: Adult) Pulse 70 Temp 97.7 ??F (36.5 ??C) (Temporal) Resp 18 Ht 6' (1.829 m) Wt 97.9 kg (215 lb 12.8 oz) SpO2 99% BMI 29.27 kg/m?? PHQ-2 & PHQ-9 Oswestry: Pain Intensity: The pain is moderate and does not vary much. Personal care: Washing and dressing increases the pain, but I manage not to change my way of doing it. Lifting: Pain prevents me from lifting heavy weights, but I can manage light to medium weights if they are conveniently postitioned. Walking: I can only walk while using a cane or on crutches. Sitting: I can sit in any chair as long as I like without pain. Standing: I cannot stand for longer than ten minutes without increasing pain. Sleeping: I get pain in bed, but it does not prevent me from sleeping well. Social Life: Pain has restricted my social life and I do not go out very often. Traveling: I get extra pain while traveling, but it does not compel me to seek alternative forms oftravel. Changing Degree of Pain: My pain is rapidly getting better. Oswestry Total Score/Disability : 46 % Disability BMI: Body mass index is 29.27 kg/m??. Social History Tobacco Use Smoking Status Never Smokeless Tobacco Never The ASCVD Risk score (Shahriar SCOTT, et al., 2019) failed to calculate for the following reasons: Cannot find a previous HDL lab Cannot find a previous total cholesterol lab Neurological The patient is a well-developed, well-nourished male in no acute distress. He has grossly intact CN II-XII. The patient has 10?? of extension, 80?? of flexion, 80?? of rotation of the right, and 80?? of rotation to the left of the cervical spine. There is 5?? of extension and 90?? of flexion of the lumbar spine. The patient has good range of motion of the bilateral shoulders, elbows, hips and knees. The patient has grossly normal muscle bulk and strength throughout with increased tone in his lower extremities and 3 beats of clonus. Sensation is grossly intact to light touch with a sensory level in the mid thoracic spine. The patient has a negative SALOMON sign bilaterally. The patient has a negative piriformis stretch bilaterally. The patient has a negative straight leg raise bilaterally. The patient is able to walk on tiptoes and heels. Toes are upgoing. The patient has a wide based gait. Review of Xrays: MRI Lspalmer 06/13 shows evidence of decompression at the L45 level without significant ongoing nerve root compression. It was independently viewed. MRI Tspine 7/23 was independently viewed. This shows myelomalacia of the spinal cord with some tethering to the anterior right portion of the canal and what appears to be recurrent compression of thecanal. This could be better imaged on a repeat examination with and without contrast. MRI Cspine 7/23 shows a generalized straightening of the spine with congenital stenosis and multilevel which results in moderate canal stenosis at C56 and C67 with multilevel foraminal stenosis. Assessment & Plan Thoracic myelopathy The patient seems to have a complex case with progressive lower extremity balance and gait difficulty and subjective weakness. He is scheduled to get a new MRI of his thoracic spine through Dr. Chun's office. I would recommend that he get a study with and without contrast. He may benefit from reexploration and decompression of his thoracic spine. I am the fourth neurosurgeon to evaluate him andam not assuming his care. He would benefit from evaluation at a tertiary care facility for evaluation and reoperation and we will refer him to Dr. Robles at [facility] for evaluation. We will not set up a scheduled followup appointment. His symptoms do not seem to align with his degenerative cervical and lumbar pathology. Return for No f/u. Referral to Dr. Robles at [facility]. for evaluation of recurrent thoracic stenosis.. This document was created using speech voice recognition software and has not been thoroughly reviewed. Grammatical errors, random word insertions, pronoun errors and incomplete sentences are an occasional consequence of this system due to software limitations, ambient noise and hardware issues. Any formal questions or concerns about content, text or information contained within the body of this dictation should be directly addressed to the provider's office for clarification. Riley Huddleston MD, FAANS documented in this encounter Plan of Treatment Not on file documented as of this encounter Visit Diagnoses Diagnosis Thoracic myelopathy- Primary Spondylosis with myelopathy, thoracic region documented in this encounter
--- OUTSIDE RECORDS SUMMARY | 2024-11-14 16:27 | XMS_ITS | Encounter Summary ---
Author Organization [facility] Address [address] [place] [address] Care Team Providers Care Acid Recovery Operator Name Role Phone Unavailable Primary Care Provider Unavailabl e Encounter Details Date Type Department Care Team (Late st Contact Info) Description 09/05/2024 External Device Data STL ABSTRACTION Provider, Abstract [...]
--- OUTSIDE RECORDS SUMMARY | 2024-11-14 16:27 | XMS_ITS ---
Author Organization [facility] Address [address] [place] [address] Care Team Providers Care Machine Pie Maker Name Role Phone Sj Benson Primary Care Provider Dr. Shay Joseph Unavailable [phone] ZZ-Migration, Provider Unavailable Unavailab le Allergies Allergen (clinical drug ingredient) Drug/Non Drug Allergy documented on EMR Reaction Allergy Type Onset Date Status Substance with sulfonamide structure and antibacterial mechanism of action (substance) SULFONAMIDES (uncoded) Unknown Allergy Activ e REASON FOR VISIT [facility] Conversion Encounter Medications Medication SIG (Take, Route, Fr equency, Duration) Notes Start Date End Date Status Finasteride 1 MG 1 tab(s) orally once a day for 30 day(s) Active Florastor 250 MG 1 cap(s) orally 2 times a day Active DULoxetine HCl 30 MG 1 cap(s) orally 2 times a day Active traMADol HCl 50 MG 1 tab(s) orally PRN Active Tamsulosin HCl 0.4 MG 1 cap(s) orally on ce a day for 30 day(s) Active Encounters Encounter Location Date Provider Diagnosis [facility] [address] [place] [address] 05/06/2024 Provider ZZ-Migration Plan Of Treatment No Information Progress Notes * THUS, RyanDOB:1950 ([age] yo M)Acc No.[id number]:05/06/2024 Patient:?Ryan DELGADO Provider:?Provider Migration :1950???Age:73 Y???Sex:Male Cody e:05/06/2024 Address:[address] [facility] Pcp:Sj Benson Subjective: * Chief Complaints: * ???1. Multum To Medispan Con version Encounter. * Medical History:? * Medications:?Taking Finaster jose 1 MG Tablet 1 tab(s) orally once a day , Taking Florastor 250 MG Capsule 1 cap(s) orally 2 times a day , Taking DULoxetine HCl 30 MG Capsule Delayed Release Particles 1 cap(s) orally 2 times a day , Taking traMADol HCl 50 MG Tablet 1 tab(s) orally PRN , Taking Tamsulosin HCl 0.4 MG Capsule 1 cap(s) orally once a day * Allergies:?SULFONAMIDES. Objective: * Vitals:? Assessment: Plan: * Treatment: * Billing Information: * Visit Code:? * Procedure Codes:? * Electronic signature of Clay AriasZ-Migration on 11/14/2024 at 04:26 PM LIME FILTER OPERATOR Sign off status: Pending * Provider:?Provider Migration Date:?05/06 Generated for Sarahi chaudhry/Adryan/eTransmitting on:?11/14/2024 04:26 PM LIME FILTER OPERATOR
--- OUTSIDE RECORDS SUMMARY | 2024-11-14 16:27 | XMS_ITS | Encounter Summary ---
Author Organization [facility] Address [address] [place] [address] Care Team Providers Care Coating Machine Operator Name Role Phone Unavailable Primary Care [...]
--- OUTSIDE RECORDS SUMMARY | 2024-11-14 16:27 | XMS_ITS | Clinical Summary ---
Author Organization [facility] Address [address] [place] [address] Phone Care Team Providers Care Pipelines Superintendent Name Role Phone Unavailable Primary Care Provider Unavailabl e Allergies Active Allergy Reactions Criticality Noted Date Comments Sulfa (Sulfonamide Antibiotics) Unknown 07/2021 Sulfa Dyne Unknown 06/27/2024 Medications Medication Sig Dispensed Refills Start Date End Date Status baclofen (LIORESAL) 10 mg tablet Take 1 Tablet by mouth 2 times daily. Active DULoxetine (CYMBALTA) 30 mg Capsule, Delayed Release(E.C.) Take 1 capsule twice a day by oral route as directed for 90 days. 05/16/2024 Active finasteride (PROSCAR) 5 mg tablet Take 1 Tablet by mouth daily. Active tamsulosin (FLOMAX) 0.4 mg capsule Take 0.4 mg every day by oral route at bedtime for 90 days. 05/16/2024 Active traMADoL (ULTRAM) 50 mg tablet Take 1 Tablet by mouth daily. Active Saccharomyces boulardii (Florastor) 250 mg Capsule 2 times daily. Active Active Problems No known active problems Encounters Date Type Department Care Team Description 09/05/2024 External Device Data STL ABSTRACTION Provider, Abstract 08/22/2024 External Device Data STL ABSTRACTION Provider, Abstract from Last 3 Months Social History Tobacco Use Types Packs/Day Years Used Date Smoking Tobacco: Never Smokeless Tobacco: Never Alcohol Use Standard Drinks/Week Comments Never 0 (1 standard drink = 0.6 oz pur e alcohol) Sex and Gender Information Value Date Recorded Sex Assigned at Male 06/26/2024 7:32 PM CDT Gender Identity Male 06/26/2024 7:32 PM CDT Sexual Orientation Not on file Last Filed [...] Mass Index 29.27 06/27/2024 1:41 PM CDT Plan of Treatment Health Maintenance Due Date Last Done Comments ZOSTER VACCINE (1 of 2) 1998 PNEUMOCOCCAL VACCINE 65+ YEA RS (1 of 1 - PCV) 2013 RSV VACCINE (60+ or ) (1 - 1-dose 75+ series) 2023 INFLUENZA VACCINE (#1) 2024 DTAP/TDAP/TD VACCINES (3 - Td or Tdap) 08/10/2027, 03/04/2017
--- OUTSIDE RECORDS SUMMARY | 2024-11-14 16:27 | XMS_ITS | Encounter Summary ---
Author Organization [facility] Address [address] [place] [address] Care Team Providers Care Drop Clipper Name Role Phone Unavailable Primary Care Provider Unavailabl e Encounter Details Date Type Department Care Team (Late st Contact Info) Description 06/27/2024 Orders Only [facility] Neurosurgery [facility] [address] [facility] [address] [place] [address] Provider, Abstract NO ADDRESS ON FILE Social [...] Procedure Name Priority Date/Time Associated Diagnosis Comments MRI CERVICAL WO CONTRAST Routine 09/01/2023 1:59 PM CDT MRI THORACIC WO CONTRAST Routine 06/25/2023 2:08 PM CDT [facility] XR SPINE LUMBAR COMP W BENDING MIN 6 VIEWS Routine 06/11/2023 2:11 PM CDT MRI LUMBAR W WO CONTRAST Routine 06/11/2023 2:04 PM CDT documented in this encounter Results * MRI CERVICAL WO CONTRAST (09/01/2023 1:59 PM CDT) Anatomical Region Laterality Modality Spine Other Abstract Provider MR ORDERABLES * MRI THORACIC WO CONTRAST (06/25/2023 2:08 PM CDT) Anatomical Region Laterality Modality Spine Other Abstract Provider MR ORDERABLES * [facility] XR SPINE LUMBAR COMP W BENDING MIN 6 VIEWS (06/11/2023 2:11 PM CDT) Abstract Provider [facility] IMAGING * MRI LUMBAR W WO CONTRAST (06/11/2023 2:04 PM CDT) Anatomical Region Laterality Modality Spine Other Abstract Provider MR ORDERABLES documented in this encounter Visit Diagnoses Not on filedocumented in this encounter
--- OUTSIDE RECORDS SUMMARY | 2024-11-14 16:27 | XMS_ITS ---
Author Organization [facility] Address [address] [place] [address] Care Team Providers Care Oncology Navigator Name Role Phone Sj Benson Primary Care Provider Dr. Shay Joseph Unavailable [phone] REASON FOR VISIT Request for MRI report Encounters Encounter Location Date Provider Diagnosis [facility] [address] [place] [address] 07/05/2023 Shay Acosta Plan Of Treatment No Information Progress Notes * THUS, RyanDOB:1950 ([age] yo M)Acc No.[id number]:07/05/2023 Patient:?Ryan Delgado :1950???Age:72 Y???Sex:Male Address:[address] [place] [address] * true * Date:? Generated for Yaakovi richa/Adryan/eTransmitting on:?11/14/2024 04:27 PM WHITE SHOE EXAMINER
--- OUTSIDE RECORDS SUMMARY | 2024-11-14 16:27 | XMS_ITS | Encounter Summary ---
Author Organization [facility] Address [address] [place] [address] Care Team Providers Care Algebra Teacher Name Role Phone Unavailable Primary Care Provider Unavailabl e Encounter Details Date Type Department Care Team (Late st Contact Info) Description 08/01/2024 External Device Data STL ABSTRACTION Provider, Abstract [...]
--- OUTSIDE RECORDS SUMMARY | 2024-11-14 16:27 | XMS_ITS | Encounter Summary ---
Author Organization [facility] Address [address] [place] [address] Care Team Providers Care Page Technician Name Role Phone Unavailable Primary Care Provider Unavailabl e Encounter Details Date Type Department Care Team (Late st Contact Info) Description 07/18/2024 External Device Data STL ABSTRACTION Provider, Abstract [...]
--- OUTSIDE RECORDS SUMMARY | 2024-11-14 16:27 | XMS_ITS | Encounter Summary ---
Author Organization [facility] Address [address] [place] [address] Care Team Providers Care Silk Top Hat Body Maker Name Role Phone Unavailable Primary Care [...]
--- OUTSIDE RECORDS SUMMARY | 2024-11-14 20:28 | XMS_ITS | Clinical Summary ---
Author Organization [facility] Address [address] [place] [address]. [place] [address] [place] [address] Care Team Providers Care Business Enterprise Officer Name Role Phone Sj Benson MD Primary Care Provider [phone] Allergies Active Allergy Reactions Criticality Noted Date [...] this topic Medical Devices Implanted Type Area Vibrator Operator Device Identifier Shelf Expiration Date Model / Serial / Lot Stimulator Lead-12/07/2023 Implanted:Qty: 1 on 12/07/[address] [employer] [id number] / / Stimulator Implant- 024 Implanted:Qty: 1 on 12/07/[address] [employer] [id number] / / Description:MR CONDITIONAL A T 1.5 T ONLY, NEED REMOTE TO TURN OFF STIMULATION , NORMAL JACKI , MAX 30 MINUTE SCAN TIME IN 60 MINUTE WINDOW Insurance MEDICARE [facility] Care Teams Business Enterprise Officer Relationship Specialty Start Date End Date Sj Benson MD PCP - General FAMILY PRACTICE 07/29/21
--- OUTSIDE RECORDS SUMMARY | 2024-11-14 20:28 | XMS_ITS | Referral Summary ---
Author Organization [facility] Address [address] [place] [address] Care Team Providers Care Sports Broadcasting Internship Name Role Phone Sj Benson Primary Care Provider Unavailab le Source Comments [facility],non-owned Affiliates and Associated Physician Practices is amultiple site organization consisting of ambulatory clinics and hospital sitesin [place], [place], [place] and [place]. This disclosure is being madepursuant to the Care Everywhere program and may not contain all information available regarding this patient. Last updated 18.[facility] Social History Tobacco Use Types Packs/Day Years Used Date Smoking Tobacco: Never Assessed Sex and Gender Information Value Date Recorded Sex Assigned at Not on file Gender Identity Not on file Sexual Orientation Not on file Plan of Treatment Not on file Care Teams Sports Broadcasting Internship Relationship Specialty Start Date End Date Sj Benson Update Information PCP - General 06/24/21
--- OUTSIDE RECORDS SUMMARY | 2024-11-14 20:28 | XMS_ITS | Encounter Summary ---
Author Organization [facility] Address [address] [place] [address]. [place], [place] [address] [place] [address] Care Team Providers Care Certified Retinal Angiographer Name Role Phone Sj Benson MD Primary Care Provider [phone] Reason for Visit * Reason Comments Outside Record (SCAN) Encounter Details Date Type Department Care Team ([facility] Contact Info) Description 11/12/2023 Scan [facility] [place] [address] Scanned, [facility] Outside Record (SCAN) [...] filedocumented in this encounter Care Teams Certified Retinal Angiographer Relationship Specialty Start Date End Date Sj Benson MD PCP - General FAMILY PRACTICE 07/29/21 documented as of this encounter
--- OUTSIDE RECORDS SUMMARY | 2024-11-14 20:28 | XMS_ITS | Encounter Summary ---
Author Organization [facility] Address [address] [place] [address]. [place], [place] [address] [place] [address] Care Team Providers Care Works Manager Name Role Phone Sj Benson MD Primary Care Provider [phone] Reason for Visit * Reason Comments Outside Record (SCAN) Encounter Details Date Type Department Care Team ([facility] Contact Info) Description 11/12/2023 Scan [facility] [place] [address] Scanned, [facility] Outside Record (SCAN) [...] on filedocumented in this encounter Care Teams Works Manager Relationship Specialty Start Date End Date Sj Benson MD PCP - General FAMILY PRACTICE 07/29/21 documented as of this encounter
--- OUTSIDE RECORDS SUMMARY | 2024-11-14 20:28 | XMS_ITS | Clinical Summary ---
Author Organization [facility] Address [address] [place] [address] Care Team Providers Care Carton Waxing Machine Operator Name Role Phone Sj Benson Primary Care Provider Unavailab le Source Comments [facility],non-owned Affiliates and Associated Physician Practices is amultiple site organization consisting of ambulatory clinics and hospital sitesin [place], [place], [place] and [place]. This disclosure is being madepursuant to the Care Everywhere program and may not contain all information available regarding this patient. Last updated 18.[facility] [employer] Social History Tobacco Use Types Packs/Day Years [...] age to complete this topic Care Teams Carton Waxing Machine Operator Relationship Specialty Start Date End Date Sj Benson Update Information PCP - General 06/24/21
--- OUTSIDE RECORDS SUMMARY | 2024-11-14 20:28 | XMS_ITS | Patient Health Summary ---
Author Organization [facility] Address [address] [place] [address] Care Team Providers Care Calculus Teacher Name Role Phone Sj Benson Mario Primary Care Provider Unavailab le Note from [facility][note 2],non-owned Affiliates and Associated Physician Practices is amultiple site organization consisting of ambulatory clinics and hospital sitesin [place], [place], [place] and [place]. This disclosure is being madepursuant to the Care Everywhere program and may not contain all information available regarding this patient. Last updated 18.[facility] [employer] Social History Tobacco Use Types Packs/Day Years [...] Final Diagnosis URINE, VOIDED, THIN PREP, CYTOLOGY (OSC:[id number]; 04/09/2021): - Negative for high grade urothelial carcinoma 04/14/2021 8:56 AM CDT [facility] Microscopic Description and Comment Microscopic examination substantiates the final diagnosis. 04/14/2021 8:56 AM CDT [facility] Clinical History Hematuria 04/14/2021 8:56 AM CDT [facility] Materials Received Prepared slide received from [facility] [place] [facility] [id number]. All material will be returned. 04/14/2021 8:56 AM CDT [facility] Disclaimer The performance characteristics of all immunohistochemical and indirect immunofluorescence stains (if any) cited in this report were determined by the Histopathology Laboratory of [facility]. Some of these tests were developed by [...] Case Report Surgical Pathology Report ? Case: [id number] ? Authorizing Provider: ??Preeti Carreon MD ? Collected: ? 04/09/2021 11:33 AM ? Ordering Location: ? [facility] ? Received: ?04/11/2021 11:33 AM [...] - PATHOLOGY/CYTO LOGY ORDERABLES Performing Organization Address [facility]/State/ZIP Co de Phone Number [facility] [address] [place] [address], [facility] [phone] * DERMATOPATH TECHNICAL REPORT (09/09/2018 12:00 AM CDT) Case Report Dermatopathology Report ? Case: [id number] ? Authorizing Provider: ??Brittany Peña MD ?Collected: ? 09/09/2018 12:00 AM ? Pathologist: ? Tiffany Astorga MD ? Received: ?09/13/2018 06:58 AM ? Specimens: ?? A) - Skin, left neck ? B) - Skin, right knee ? 8 4:09 PM CDT [facility]ER[facility] LABORATORY Clinical History A: ISK vs nevus vs R/O BCC. Homer brown papule. B: VV vs ISK vs SCC/PSO. Verrucous plaque. 4:09 PM T DERMATOPATHOLOGY LABORATORY Gross Description Specimen A: Received is one formalin filled container labeled with the patient's name and designated left neck. The specimen consists of a shave measuring [id number]. Jar 0. Specimen B: Received is one formalin filled container labeled with the patient's name and designated right knee. The specimen consists of a shave measuring [id number]. Jar 0. [facility] Dermatopathology Laboratory performed the technical component [...] characteristic determined by the Dermatopathology Laboratory at [facility]. These tests need not be, and therefore are not, approved by the [place] Food and Drug Administration. The tests are used for clinical purposes. 4:09 PM [facility] DERMATOPATHOLOGY LABORATORY Pathology/Cytology TISSUE SPECIMEN FROM SKIN / Unknown 09/09/2018 09/13/2018 6:58 AM CDT Miscellaneous samples (specimen) TISSUE SPECIMEN FROM SKIN / Unknown 09/09/2018 09/13/2018 6:58 AM CDT Brittany Peña MD LAB - PATHOLOGY/CYTO LOGY ORDERABLES DERMATOPATHOLOGY LABORATORY [facility] - Department of Dermatology [facility], 5th Floor Lab [address] [phone] Care Teams Calculus Teacher Relationship Specialty Start Date End Date Sj Benson Update Information PCP - General 06/24/21
--- OUTSIDE RECORDS SUMMARY | 2024-11-14 20:28 | XMS_ITS | Encounter Summary ---
Author Organization [facility] Address [address] [place] [address] Care Team Providers Care Nurse Sitter Name Role Phone Sj Benson Primary Care Provider Unavailab le Encounter Details Date Type Department Care Team (Late st Contact Info) Description 04/11/2021 Lab Requisition [facility] [address] [place] [address] Preeti Carreon MD [address] [place], [place] [id number] Illness, unspecified Social History Tobacco Use Types [...] Final Diagnosis URINE, VOIDED, THIN PREP, CYTOLOGY (OSC:[id number]; 04/09/2021): - Negative for high grade urothelial carcinoma 04/14/2021 8:56 AM CDT [facility] Microscopic Description and Comment Microscopic examination substantiates the final diagnosis. 04/14/2021 8:56 AM CDT [facility] Clinical History Hematuria 04/14/2021 8:56 AM CDT [facility] Materials Received Prepared slide received from [facility] [id number]. All material will be returned. 04/14/2021 8:56 AM [facility] Disclaimer The performance characteristics of all immunohistochemical and indirect immunofluorescence stains (if any) cited in this report were determined by the Histopathology Laboratory of [facility]. Some of these tests were developed by [...] the attending (teaching) pathologist. 04/14/2021 8:56 AM [facility] Case Report Surgical Pathology Report ? Case: [id number] ? Authorizing Provider: ??Preeti Carreon MD ? Collected: ? 04/09/2021 11:33 AM ? Ordering Location: ? [facility] ? Received: ?04/11/2021 11:33 AM ? Pathologist: ? Mike Thomas MD ? Specimen: ?Slide Consultation ? 04/14/2021 8:56 AM CDT [facility] Embedded Images 04/14/2021 8:56 AM CDT [facility] Pathology/Cytolo gy SURGICAL PATHOLOGY CONSULTATION AND REPORT ON REFERRED SLIDES PREPARED ELSEWHERE / Unknown 04/09/2021 11:33 AM CDT 04/11/2021 11:33 AM CDT Preeti Carreon MD LAB - PATHOLOGY/CYTO LOGY ORDERABLES Performing Organization Address City/[facility] Co de Phone Number [facility] [address] [phone] documented in this encounter Visit Diagnoses Diagnosis Illness, unspecified documented in this encounter Care Teams Nurse Sitter Relationship Specialty Start Date End Date Sj Benson Update Information PCP - General 06/24/21 documented as of this encounter
--- OUTSIDE RECORDS SUMMARY | 2024-11-14 20:28 | XMS_ITS | Encounter Summary ---
Author Organization [facility] Address [address] [place] [address]. [place] [address] [place] [address] Care Team Providers Care Coil Placer Name Role Phone Sj Benson MD Primary Care Provider [phone] Encounter Details Date Type Department Care Team (Late st Contact Info) Description 11/18/2023 9:14 AM LEAD C DEVELOPER - 11/18/2023 11:59 PM [facility] Hospital Encounter [facility] [place] [address] Courtney Puente MD [address] [facility] [address] [place] [address] Discharge Disposition: Home or Self Care (Routine [...] AUTO W/O MICRO Routine 11/18/2023 10:15 AM LEAD C DEVELOPER Lumbar spondylosis CELIAC DISEASE COMP PANEL Routine 11/18/2023 9:36 AM LEAD C DEVELOPER Lumbar spondylosis PARTIAL THROMBOPLASTIN TIME,PTT Routine 11/18/2023 9:36 AM LEAD C DEVELOPER Lumbar spondylosis PROTHROMBIN TIME, VENOUS Routine 11/18/2023 9:36 AM LEAD C DEVELOPER Lumbar spondylosis COMPREHENSIVE METABOLIC PANEL Routine 11/18/2023 9:36 AM LEAD C DEVELOPER Lumbar spondylosis CBC W/DIFF AUTOMATED Routine 11/18/2023 9:36 AM LEAD C DEVELOPER Lumbar spondylosis documented in this encounter Results * (ABNORMAL) URINALYSIS (11/18/2023 10:15 AM LEAD C DEVELOPER) SPECIMEN TYPE URINE CLEAN CATCH 11/18/2023 9:25 AM [facility] COLOR (U) LIGHT YELLOW 11/18/2023 10:59 AM [facility] TRANSPARENCY CLEAR 11/18/2023 10:59 AM [facility] SPECIFIC GRAVITY (U) 1.020 1.001 - 1.030 11/18/2023 10:59 AM [facility] U PH 5.5 5.0 - 9.0 11/18/2023 10:59 AM [facility] LEUKOCYTES (U) 75(A) NEGATIVE 11/18/2023 10:59 AM [facility] NITRITES NEGATIVE NEGATIVE 11/18/2023 10:59 AM [facility] PROTEIN RANDOM (U) NEGATIVE <30 MG/DL 11/18/2023 10:59 AM LEAD C DEVELOPER [facility] GLUCOSE (U) NORMAL NORMAL MG/DL 11/18/2023 10:59 AM LEAD C DEVELOPER [facility] KETONES MG/DL (U) NEGATIVE NEGATIVE MG/DL 11/18/2023 10:59 AM [facility] UROBILINOGEN NORMAL NORMAL MG/DL 11/18/2023 10:59 AM [facility] BILIRUBIN (U) NEGATIVE NEGATIVE MG/DL 11/18/2023 10:59 AM LEAD C DEVELOPER [facility] BLOOD (U) NEGATIVE NEGATIVE 11/18/2023 10:59 AM LEAD C DEVELOPER [facility] MUCUS RARE /LPF 11/18/2023 10:59 AM [facility] WBC/HPF 1 <6 /HPF 11/18/2023 10:59 AM LEAD C DEVELOPER [facility] RBC/HPF 3 <6 /HPF 11/18/2023 10:59 AM [facility] SQUAMOUS EPITHELIALS RARE /HPF 11/18/2023 10:59 AM LEAD C DEVELOPER [facility] URINE SPECIMEN OBTAINED BY CLEAN CATCH PROCEDURE / Unknown 11/18/2023 10:15 AM LEAD C DEVELOPER Courtney Puente MD URINE ORDERABLES Final Result [facility] [address] [place] [address], * PTT, PARTIAL THROMBOPLASTIN TIME (11/18/2023 9:36 AM LEAD C DEVELOPER) PTT 30.4 25.1 - 36.5 SEC 11/18/2023 11:16 AM LEAD C DEVELOPER [facility] 11/18/2023 9:36 AM LEAD C DEVELOPER us Courtney Puente MD LABORATORY Final Result Performing Organization Address City/[facility]/ZIP Co de Phone Number [facility] [address] [place] [address], * PROTIME/INR, VENOUS (11/18/2023 9:36 AM LEAD C DEVELOPER) PROTIME 10.9 10.2 - 12.9 SEC 11/18/2023 11:16 AM LEAD C DEVELOPER [facility] INR 0.9 11/18/2023 11:16 AM LEAD C DEVELOPER [facility] Comment: Recommended INR Therapeutic Goals: ??2.0-3.0 Routine Therapy ??2.5-3.5 Mechanical Prosthetic Valves (High Risk) 11/18/2023 9:36 AM LEAD C DEVELOPER us Courtney Puente MD LABORATORY Final Result Performing Organization Address [facility] Co de Phone Number [facility] [address] [place] [address], * CELIAC DISEASE PANEL (11/18/2023 9:36 AM LEAD C DEVELOPER) INTERPRETATION REPORT 11/22/2023 9:26 AM [employer] ANDRES JOHN Comment: No serological evidence for celiac disease is present. tTG may normalize in individuals with celiac disease who maintain a gluten free diet. If high suspicion of celiac disease, consider HLA DQ2 and DQ8 testing to rule out celiac disease. TISSUE TRANSGLUTAMINASE IGA AB <1.0 <15.0 U/mL 11/22/2023 9:26 AM [facility] ANDRES JOHN Comment: ? Value ?Interpretation ? <15.0 ?Antibody not detected > or = 15.0 ?Antibody detected IGA 101 70 - 320 mg/dL 11/22/2023 9:26 AM LEAD C DEVELOPER [employer] ANDRES ALVARO Comment: Test Performed by [employer], [employer] [facility], [address] [place], [place] M.D., Ph.D., Director of Laboratories , [place] [id number] 11/18/2023 9:36 AM LEAD C DEVELOPER Courtney Puente MD LABORATORY Final Result [employer] [facility] [address] [place], [place] , [place] [phone] * (ABNORMAL) COMPREHENSIVE METABOLIC PANEL (11/18/2023 9:36 AM LEAD C DEVELOPER) GLUCOSE 97 70 - 99 MG/DL 11/18/2023 11:30 AM LEAD C DEVELOPER [facility] BUN 24(H) 7 - 18 MG/DL 11/18/2023 11:30 AM [facility] CREATININE S/P/B 1.51(H) 0.7 - 1.3 MG/DL 11/18/2023 11:30 AM [facility] SODIUM S/P/B 139 136 - 145 MMOL/L 11/18/2023 11:30 AM [facility] POTASSIUM S/P/B 3.9 3.5 - 5.1 MMOL/L 11/18/2023 11:30 AM [facility] CHLORIDE S/P/B 110(H) 100 - 108 MMOL/L 11/18/2023 11:30 AM [facility] CO2 24.5 21 - 32 MMOL/L 11/18/2023 11:30 AM [facility] CALCIUM S/P/B 9.2 8.5 - 10.1 MG/DL 11/18/2023 11:30 AM [facility] BILIRUBIN TOTAL S/P/B 1.1 0.2 - 1.2 MG/DL 11/18/2023 11:30 AM [facility] Comment: THIS ASSAY IS NOT RECOMMENDED FOR PATIENTS UNDERGOING TREATMENT WITH ELTROMBOPAG DUE TO THE POTENTIAL FOR FALSELY ELEVATED RESULTS. TOTAL PROTEIN S/P/B 6.9 6.4 - 8.2 G/DL 11/18/2023 11:30 AM [facility] ALBUMIN S/P/B 3.8 3.4 - 5.0 G/DL 11/18/2023 11:30 AM [facility] AST 14(L) 15 - 37 U/L 11/18/2023 11:30 AM [facility] ALT 25 16 - 60 U/L 11/18/2023 11:30 AM [facility] ALKALINE PHOSPHATASE S/P/B 66 50 - 136 U/L 11/18/2023 11:30 AM [facility] ANION GAP 4.5(L) 5 - 15 MMOL/L 11/18/2023 11:30 AM [facility] BUN CREATININE RATIO 15.9 6 - 26 11/18/2023 11:30 AM [facility] A/G RATIO 1.2 1.0 - 2.0 RATIO 11/18/2023 11:30 AM [facility] GFR ESTIMATE 48(L) >90 ML/MIN/1.7 3 M2 11/18/2023 11:30 AM [facility] Comment: NOTE: eGFR is not calculated for patients <18 years of age. This is an estimated GFR calculation using the new CKD EPI creatinine equation without race and so does not require a correction factor for race. This estimated GFR should not be used for calculating drug doses. 11/18/2023 9:36 AM LEAD C DEVELOPER Courtney Puente MD LABORATORY Final Result [facility] [address] [place] [address], [place] [phone] * (ABNORMAL) CBC W/DIFF AUTOMATED (11/18/2023 9:36 AM LEAD C DEVELOPER) [facility] WBC 8.6 4.5 - 11.0 x10'3/uL 11/18/2023 10:51 AM LEAD C DEVELOPER [facility] RBC 4.72 4.70 - 6.10 x10'6/uL 11/18/2023 10:51 AM [facility] HGB 14.9 14.0 - 18.0 G/DL 11/18/2023 10:51 AM [facility] HCT 44.0 43.0 - 54.0 % 11/18/2023 10:51 AM [facility] MCV 93.2 80.0 - 94.0 FL 11/18/2023 10:51 AM [facility] MCH 31.6(H) 27.0 - 31.0 PG 11/18/2023 10:51 AM [facility] MCHC 33.9 32.0 - 36.0 G/DL 11/18/2023 10:51 AM [facility] RDW 12.3 11.5 - 14.5 % 11/18/2023 10:51 AM [facility] PLT 250 130 - 400 x10'3/uL 11/18/2023 10:51 AM [facility] MPV 10.2 9.3 - 12.2 FL 11/18/2023 10:51 AM [facility] DIFFERENTIAL TYPE AUTOMATED DIFFERENTIAL 11/18/2023 10:51 AM [facility] NEUTROPHILS % 64.6 % 11/18/2023 10:51 AM LEAD C DEVELOPER [facility] LYMPHOCYTES % 24.8 % 11/18/2023 10:51 AM LEAD C DEVELOPER [facility] MONOCYTES % 8.4 % 11/18/2023 10:51 AM LEAD C DEVELOPER [facility] EOSINOPHILS 1.4 % 11/18/2023 10:51 AM LEAD C DEVELOPER [facility] BASOPHILS 0.5 % 11/18/2023 10:51 AM LEAD C DEVELOPER [facility] IMMATURE GRANS % 0.3 % 11/18/20 10:51 AM LEAD C DEVELOPER [facility] ABS. NEUTROPHILS TOTAL 5.55 1.80 - 7.70 x10'3/uL 11/18/2023 10:51 AM [facility] ABS. LYMPHOCYTES 2.13 1.00 - 4.80 x10'3/uL 11/18/2023 10:51 AM LEAD C DEVELOPER [facility] ABS. MONOCYTES 0.72 0.30 - 0.82 x10'3/uL 11/18/2023 10:51 AM LEAD C DEVELOPER [facility] ABS. EOSINOPHILS 0.12 0.04 - 0.54 x10'3/uL 11/18/2023 10:51 AM LEAD C DEVELOPER [facility] ABS. BASOPHILS 0.04 0.01 - 0.08 x10'3/uL 11/18/2023 10:51 AM LEAD C DEVELOPER [facility] ABS. IMMATURE GRANULOCYTES 0.03 0.00 - 0.49 x10'3/uL 11/18/2023 10:51 AM [facility] 11/18/2023 9:36 AM LEAD C DEVELOPER us Courtney Puente MD LABORATORY Final Result [facility] [address] [place] [address], documented in this encounter Visit Diagnoses Diagnosis Lumbar spondylosis Lumbosacral spondylosis without myelopathy documented in this encounter Care Teams Coil Placer Relationship Specialty Start Date End Date Sj Benson MD PCP - General FAMILY PRACTICE 07/29/21 documented as of this encounter
--- OUTSIDE RECORDS SUMMARY | 2024-11-14 20:28 | XMS_ITS | Encounter Summary ---
Author Organization [facility] Address [address] [place] [address]. [place], [place] [address] [place] [address] Care Team Providers Care Cap And Hat Production Supervisor Name Role Phone Sj Benson MD Primary Care Provider [phone] Reason for Visit * Reason Comments Outside Record (SCAN) Encounter Details Date Type Department Care Team ([facility] Contact Info) Description 06/13/2024 Scan [facility] [place] [address] Scanned, [facility] Outside Record (SCAN) Social [...] on filedocumented in this encounter Care Teams Cap And Hat Production Supervisor Relationship Specialty Start Date End Date Sj Benson MD PCP - General FAMILY PRACTICE 07/29/21 documented as of this encounter
--- OUTSIDE RECORDS SUMMARY | 2024-11-14 20:28 | XMS_ITS | Encounter Summary ---
Author Organization [facility] Address [address] [place] [address]. [place] [address] [place] [address] Care Team Providers Care Imcu Specialist Name Role Phone Sj Benson MD Primary Care Provider [phone] Encounter Details Date Type Department Care Team (Late st Contact Info) Description 11/18/2023 9:00 AM SALES AND MARKETING MANAGER - 11/18/2023 9:13 AM [facility] Hospital Encounter [facility] Diagnostic [place] [address] Courtney Puente MD 3 [facility] [address] [place] [address] Discharge Disposition: Home or Self Care (Routine [...] Comments ECG 12-LEAD Routine 11/18/2023 10:42 AM SALES AND MARKETING MANAGER Back complaints XR CHEST PA+LAT Routine 11/18/2023 10:14 AM SALES AND MARKETING MANAGER Back complaints documented in this encounter Results * ECG 12 lead (11/18/2023 10:42 AM SALES AND MARKETING MANAGER) 11/18/2023 10:4 2 AM SALES AND MARKETING MANAGER Narrative [facility] - 11/18/2023 12:32 PM SALES AND MARKETING MANAGER ?[facility] ? [address] [place] ? Test Date: ?2023-11-18 Pat Name: ? MONTE THUS ? Department: ?? 40 ? Room: ? Gender: ? Male ? Complaint Operator: ?? CDNG : ?1950 ? Requested By: COURTNEY PUENTE Order Number: [id number] ? Reading MD: ?? Monica Lu ? Measurements Intervals ?[place] ? Rate: ? 68 ? P: ?48 MD: ? 232 ?QRS: ?74 QRSD: ? 111 ?T: ?96 QT: ? 386 ? QTc: ?412 ? Interpretive Statements SINUS RHYTHM WITH FIRST DEGREE AV BLOCK MODERATE INTRAVENTRICULAR CONDUCTION DELAY NONSPECIFIC T-WAVE ABNORMALITY Compared to ECG 08/04/2021 13:59:08 First degree AV block now present Intraventricular conduction delay now present T-wave abnormality now present S AND MARKETING MANAGER Procedure Note Monica Lu MD - 11/18/2023 [facility] [place] [address] [address] [place] Test Date: 2023-11-18 Pat Name: RYAN DELGADO Department: 40 Room: Gender: Male Complaint Operator: YUE : 1950 Requested By: COURTNEY PUENTE Order Number: [id number] Reading MD: Monica Lu Measurements Intervals [place] Rate: 68 P: 48 MD: 232 QRS: 74 QRSD: 111 T: 96 QT: 386 QTc: 412 Interpretive Statements SINUS RHYTHM WITH FIRST DEGREE AV BLOCK MODERATE INTRAVENTRICULAR CONDUCTION DELAY NONSPECIFIC T-WAVE ABNORMALITY Compared to ECG 08/04/2021 13:59:08 First degree AV block now present Intraventricular conduction delay now present T-wave abnormality now present S AND MARKETING MANAGER us Courtney Puente MD ECG ORDERABLES Final Result [facility] * XR CHEST PA+LAT (11/18/2023 10:14 AM SALES AND MARKETING MANAGER) Anatomical Region Laterality Modality Chest Radiographic Sadie ging 11/18/2023 12:2 9 PM SALES AND MARKETING MANAGER Impressions 11/18/2023 12:30 PM SALES AND MARKETING MANAGER IMPRESSION: No acute findings Ordered By: COURTNEY PUENTE Interpreted By: Deepak Moe MD, 11/18/2023 12:29 PM Narrative 11/18/2023 12:30 PM SALES AND MARKETING MANAGER 2 VIEWS OF THE CHEST Clinical history: [...] back documented in this encounter Care Teams Imcu Specialist Relationship Specialty Start Date End Date Sj Benson MD PCP - General FAMILY PRACTICE 07/29/21 documented as of this encounter
--- OUTSIDE RECORDS SUMMARY | 2024-11-14 20:28 | XMS_ITS | Encounter Summary ---
Author Organization [facility] Address [address] [place] [address]. [place] [address] [place] [address] Care Team Providers Care Tax Compliance Manager Name Role Phone Sj Benson MD Primary Care Provider [phone] Encounter Details Date Type Department Care Team (Late st Contact Info) Description 11/18/2023 Orders Only [facility] Laboratory [address] [place], [place] [address] Courtney Puente MD 3 [facility] [address] [place], [place] [id number] Social History Tobacco Use Types Packs/Day Years [...] Results * (ABNORMAL) URINALYSIS (11/18/2023 10:15 AM CLINICAL DATA ASSOCIATE) SPECIMEN TYPE URINE CLEAN CATCH 11/18/2023 9:25 AM CLINICAL DATA ASSOCIATE [facility] COLOR (U) LIGHT YELLOW 11/18/2023 10:59 AM CLINICAL DATA ASSOCIATE [facility] TRANSPARENCY CLEAR 11/18/2023 10:59 AM CLINICAL DATA ASSOCIATE [facility] SPECIFIC GRAVITY (U) 1.020 1.001 - 1.030 11/18/2023 10:59 AM [facility] U PH 5.5 5.0 - 9.0 11/18/2023 10:59 AM [facility] LEUKOCYTES (U) 75(A) NEGATIVE 11/18/2023 10:59 AM [facility] NITRITES NEGATIVE NEGATIVE 11/18/2023 10:59 AM [facility] PROTEIN RANDOM (U) NEGATIVE <30 MG/DL 11/18/2023 10:59 AM [facility] GLUCOSE (U) NORMAL NORMAL MG/DL 11/18/2023 10:59 AM [facility] KETONES MG/DL (U) NEGATIVE NEGATIVE MG/DL 11/18/2023 10:59 AM [facility] UROBILINOGEN NORMAL NORMAL MG/DL 11/18/2023 10:59 AM [facility] BILIRUBIN (U) NEGATIVE NEGATIVE MG/DL 11/18/2023 10:59 AM [facility] BLOOD (U) NEGATIVE NEGATIVE 11/18/2023 10:59 AM [facility] MUCUS RARE /LPF 11/18/2023 10:59 AM [facility] WBC/HPF 1 <6 /HPF 11/18/2023 10:59 AM [facility] RBC/HPF 3 <6 /HPF 11/18/2023 10:59 AM [facility] SQUAMOUS EPITHELIALS RARE /HPF 11/18/2023 10:59 AM [facility] URINE SPECIMEN OBTAINED BY CLEAN CATCH PROCEDURE / Unknown 11/18/2023 10:15 AM [facility] Courtney Puente MD URINE ORDERABLES Final Result [facility] [address] [place] [address], * PTT, PARTIAL THROMBOPLASTIN TIME (11/18/2023 9:36 AM CLINICAL DATA ASSOCIATE) PTT 30.4 25.1 - 36.5 SEC 11/18/2023 11:16 AM CLINICAL DATA ASSOCIATE [facility] 11/18/2023 9:36 AM CLINICAL DATA ASSOCIATE us Courtney Puente MD LABORATORY Final Result Performing Organization Address [facility] Co de Phone Number [facility] [address] [place] [address], * PROTIME/INR, VENOUS (11/18/2023 9:36 AM CLINICAL DATA ASSOCIATE) PROTIME 10.9 10.2 - 12.9 SEC 11/18/2023 11:16 AM CLINICAL DATA ASSOCIATE [facility] INR 0.9 11/18/2023 11:16 AM CLINICAL DATA ASSOCIATE [facility] Comment: Recommended INR Therapeutic Goals: ??2.0-3.0 Routine Therapy ??2.5-3.5 Mechanical Prosthetic Valves (High Risk) 11/18/2023 9:36 AM CLINICAL DATA ASSOCIATE us Courtney Puente MD LABORATORY Final Result Performing Organization Address City/[facility]/ZIP Co de Phone Number [facility] [address] [place] [address], * CELIAC DISEASE PANEL (11/18/2023 9:36 AM CLINICAL DATA ASSOCIATE) INTERPRETATION REPORT 11/22/2023 9:26 AM CLINICAL DATA ASSOCIATE [employer] ETTA JOHN Comment: No serological evidence for celiac disease is present. tTG may normalize in individuals with celiac disease who maintain a gluten free diet. If high suspicion of celiac disease, consider HLA DQ2 and DQ8 testing to rule out celiac disease. TISSUE TRANSGLUTAMINASE IGA AB <1.0 <15.0 U/mL 11/22/2023 9:26 AM CLINICAL DATA ASSOCIATE [employer] ANDRES JOHN Comment: ? Value ?Interpretation ? <15.0 ?Antibody not detected > or = 15.0 ?Antibody detected IGA 101 70 - 320 mg/dL 11/22/2023 9:26 AM CLINICAL DATA ASSOCIATE [employer] ANDRES JOHN Comment: Test Performed by Leticia Naranjo, [employer] [facility], [address] [place] [address] Kingston Alamo M.D., Ph.D., Director of Laboratories , [facility] [id number] 11/18/2023 9:36 AM CLINICAL DATA ASSOCIATE us Courtney Puente MD LABORATORY Final Result [employer] [address] , * (ABNORMAL) COMPREHENSIVE METABOLIC PANEL (11/18/2023 9:36 AM CLINICAL DATA ASSOCIATE) GLUCOSE 97 70 - 99 MG/DL 11/18/2023 11:30 AM CLINICAL DATA ASSOCIATE [facility] BUN 24(H) 7 - 18 MG/DL 11/18/2023 11:30 AM [facility] CREATININE S/P/B 1.51(H) 0.7 - 1.3 MG/DL 11/18/2023 11:30 AM [facility] SODIUM S/P/B 139 136 - 145 MMOL/L 11/18/2023 11:30 AM [facility] POTASSIUM S/P/B 3.9 3.5 - 5.1 MMOL/L 11/18/2023 11:30 AM [facility] CHLORIDE S/P/B 110(H) 100 - 108 MMOL/L 11/18/2023 11:30 AM [facility] CO2 24.5 21 - 32 MMOL/L 11/18/2023 11:30 AM [facility] CALCIUM S/P/B 9.2 8.5 - 10.1 MG/DL 11/18/2023 11:30 AM [facility] BILIRUBIN TOTAL S/P/B 1.1 0.2 - 1.2 MG/DL 11/18/2023 11:30 AM [facility] Comment: THIS ASSAY IS NOT RECOMMENDED FOR PATIENTS UNDERGOING TREATMENT WITH ELTROMBOPAG DUE TO THE POTENTIAL FOR FALSELY ELEVATED RESULTS. TOTAL PROTEIN S/P/B 6.9 6.4 - 8.2 G/DL 11/18/2023 11:30 AM [facility] ALBUMIN S/P/B 3.8 3.4 - 5.0 G/DL 11/18/2023 11:30 AM [facility] AST 14(L) 15 - 37 U/L 11/18/2023 11:30 AM [facility] ALT 25 16 - 60 U/L 11/18/2023 11:30 AM [facility] ALKALINE PHOSPHATASE S/P/B 66 50 - 136 U/L 11/18/2023 11:30 AM [facility] ANION GAP 4.5(L) 5 - 15 MMOL/L 11/18/2023 11:30 AM [facility] BUN CREATININE RATIO 15.9 6 - 26 11/18/2023 11:30 AM [facility] A/G RATIO 1.2 1.0 - 2.0 RATIO 11/18/2023 11:30 AM [facility] GFR ESTIMATE 48(L) >90 ML/MIN/1.7 3 M2 11/18/2023 11:30 AM [facility] Comment: NOTE: eGFR is not calculated for patients <18 years of age. This is an estimated GFR calculation using the new CKD EPI creatinine equation without race and so does not require a correction factor for race. This estimated GFR should not be used for calculating drug doses. 11/18/2023 9:36 AM CLINICAL DATA ASSOCIATE us Courtney Puente MD LABORATORY Final Result [facility] [address] [place] [address], [place] [phone] * (ABNORMAL) CBC W/DIFF AUTOMATED (11/18/2023 9:36 AM CLINICAL DATA ASSOCIATE) WBC 8.6 4.5 - 11.0 x10'3/uL 11/18/2023 10:51 AM [facility] RBC 4.72 4.70 - 6.10 x10'6/uL 11/18/2023 10:51 AM [facility] HGB 14.9 14.0 - 18.0 G/DL 11/18/2023 10:51 AM [facility] HCT 44.0 43.0 - 54.0 % 11/18/2023 10:51 AM [facility] MCV 93.2 80.0 - 94.0 FL 11/18/2023 10:51 AM [facility] MCH 31.6(H) 27.0 - 31.0 PG 11/18/2023 10:51 AM [facility] MCHC 33.9 32.0 - 36.0 G/DL 11/18/2023 10:51 AM [facility] RDW 12.3 11.5 - 14.5 % 11/18/2023 10:51 AM [facility] PLT 250 130 - 400 x10'3/uL 11/18/2023 10:51 AM [facility] MPV 10.2 9.3 - 12.2 FL 11/18/2023 10:51 AM [facility] DIFFERENTIAL TYPE AUTOMATED DIFFERENTIAL 11/18/2023 10:51 AM [facility] NEUTROPHILS % 64.6 % 11/18/2023 10:51 AM [facility] LYMPHOCYTES % 24.8 % 11/18/2023 10:51 AM [facility] MONOCYTES % 8.4 % 11/18/2023 10:51 AM [facility] EOSINOPHILS 1.4 % 11/18/2023 10:51 AM [facility] BASOPHILS 0.5 % 11/18/2023 10:51 AM [facility] IMMATURE GRANS % 0.3 % 11/18/20 10:51 AM [facility] ABS. NEUTROPHILS TOTAL 5.55 1.80 - 7.70 x10'3/uL 11/18/2023 10:51 AM [facility] ABS. LYMPHOCYTES 2.13 1.00 - 4.80 x10'3/uL 11/18/2023 10:51 AM [facility] ABS. MONOCYTES 0.72 0.30 - 0.82 x10'3/uL 11/18/2023 10:51 AM [facility] ABS. EOSINOPHILS 0.12 0.04 - 0.54 x10'3/uL 11/18/2023 10:51 AM [facility] ABS. BASOPHILS 0.04 0.01 - 0.08 x10'3/uL 11/18/2023 10:51 AM CLINICAL DATA ASSOCIATE [facility] ABS. IMMATURE GRANULOCYTES 0.03 0.00 - 0.49 x10'3/uL 11/18/2023 10:51 AM CLINICAL DATA ASSOCIATE [facility] 11/18/2023 9:36 AM CLINICAL DATA ASSOCIATE Courtney Puente MD LABORATORY Final Result [facility] [address] [place] [address], documented in this encounter Visit Diagnoses Diagnosis Lumbar spondylosis- Primary Lumbosacral spondylosis without myelopathy documented in this encounter Care Teams Tax Compliance Manager Relationship Specialty Start Date End Date Sj Benson MD PCP - General FAMILY PRACTICE 07/29/21 documented as of this encounter
--- OUTSIDE RECORDS SUMMARY | 2024-11-14 20:28 | XMS_ITS | Encounter Summary ---
Author Organization [facility] Address [address] [place] [address]. [place], [place] [address] [place] [address] Care Team Providers Care Consultant Electronics Name Role Phone Sj Benson MD Primary Care Provider [phone] Encounter Details Date Type Department Care Team [...] on filedocumented in this encounter Care Teams Consultant Electronics Relationship Specialty Start Date End Date Sj Benson MD PCP - General FAMILY PRACTICE 07/29/21 documented as of this encounter
--- OUTSIDE RECORDS SUMMARY | 2024-11-14 20:28 | XMS_ITS | Encounter Summary ---
Author Organization [facility] Address [address] [place] [address]. [place], [place] [address] [place] [address] Care Team Providers Care Aromatherapist Name Role Phone Sj Benson MD Primary Care Provider [phone] Encounter Details Date Type Department Care Team [...] on filedocumented in this encounter Care Teams Aromatherapist Relationship Specialty Start Date End Date Sj Benson MD PCP - General FAMILY PRACTICE 07/29/21 documented as of this encounter
--- OUTSIDE RECORDS SUMMARY | 2024-11-14 20:28 | XMS_ITS | Encounter Summary ---
Author Organization [facility] Address [address] [facility] [place] [address] Care Team Providers Care Security Flex Officer Name Role Phone Marcelino Sj Mario Primary Care Provider Unavail le Encounter Details Date Type Department Care Team (Late st Contact Info) Description 09/13/[address] [facility] Care DermPath Lab [address] [facility], [place] [id number] Brittany Peña MD [address] [facility] [address] [place] [address] Social History Tobacco Use Types Packs/Day Years [...] CDT) Case Report Dermatopathology Report ? Case: [id number] ? Authorizing Provider: ??Brittany Peña MD ?Collected: ? 09/09/2018 12:00 AM ? Pathologist: ? Tiffany Astorga MD ? Received: ?09/13/2018 06:58 AM ? Specimens: ?? A) - Skin, left neck ? B) - Skin, right knee ? 4:09 PM [facility] DERMATOPATHOLOGY LABORATORY Clinical History A: ISK vs nevus vs R/O BCC. Bodega brown papule. B: VV vs ISK vs SCC/PSO. Verrucous plaque. 4:09 PM [facility] DERMATOPATHOLOGY LABORATORY Gross Description Specimen A: Received is one formalin filled container labeled with the patient's name and designated left neck. The specimen consists of a shave measuring 2t1u7kh. Jar 0. Specimen B: Received is one formalin filled container labeled with the patient's name and designated right knee. The specimen consists of a shave measuring 88e9m2zs. Jar 0. [facility] Dermatopathology Laboratory performed the technical component only. 4:09 PM [facility] DERMATOPATHOLOGY LABORATORY Embedded Images 4:09 PM [facility] DERMATOPATHOLOGY LABORATORY DISCLAIMER An external and internal positive and negative controls are appropriate for the histochemical, immunohistochemical and immunofluorescence stain(s) in this case (if any), except where stated explicitly. The performance characteristics of the stain(s) cited in this report were developed and its performance characteristic determined by the Dermatopathology Laboratory at [facility]. These tests need not be, and therefore are not, approved by the [place] Food and Drug Administration. The tests are used for clinical purposes. 4:09 PM [facility] DERMATOPATHOLOGY LABORATORY Pathology/Cytology TISSUE SPECIMEN FROM SKIN / Unknown 09/09/2018 09/13/2018 6:58 AM CDT Miscellaneous samples (specimen) TISSUE SPECIMEN FROM SKIN / Unknown 09/09/2018 09/13/2018 6:58 AM CDT Brittany Peña MD LAB - PATHOLOGY/CYTO LOGY ORDERABLES DERMATOPATHOLOGY LABORATORY [facility] - Department of Dermatology [address] [place] [address], 5th Floor Lab [address] [phone] documented in this encounter Visit Diagnoses Not on filedocumented in this encounter Care Teams Security Flex Officer Relationship Specialty Start Date End Date Sj Benson Update Information PCP - General 06/24/21 documented as of this encounter
--- OUTSIDE RECORDS SUMMARY | 2024-11-14 20:28 | XMS_ITS | CONTINUITY OF CARE DOCUMENT ---
Author Name ayush mamtanithin Address Unknown Organization [facility] Address [address] [place] [address] [address] [place] [address] Phone [phone] Care Team Providers Care Public Accountant Name Role Phone Junior STOKES, Jarret Unavailable BLAKE MICHELLE MD Unavailable BLAKE MICHELLE MD Unavailable [phone] INSURANCE PROVIDERS Payer name Policy type / Coverage type [place] red green party ID [facility] [id number] [place] [employer] [id number]
--- OUTSIDE RECORDS SUMMARY | 2024-11-14 20:29 | XMS_ITS | Encounter Summary ---
Author Organization [facility] Address [address] [place] [address]. [place] [address] [place] [address] Care Team Providers Care Alarm Signal Operator Name Role Phone Sj Benson MD Primary Care Provider [phone] Reason for Visit * Auth/Cert Specialty Diagnoses / Procedures Referred By Hector sosa Referred To Contact Diagnoses M48.061, Z01.818 Procedures LUMBAR LAMINECTOMY L4-5 Referral ID Status Reason Start Date Expiration Date Visits Re quested Visits Authorized [id number] 1 1 Encounter Details Date Type Department Care Team (Late st Contact Info) Description 08/25/2021 8:49 AM CDT Anesthesia Event [facility] [place] [address] Ortiz Jones MD [address] [facility] [address] [address] Marimar Mancilla FNP 1 [place] [address] Anesthesia Record Procedure Summary Procedure Name Responsible Anesthesiologist Anesthesia Start Time Anesthesia Stop Time LUMBAR LAMINECTOMY L4-5 (Spine Lumbar) Ortiz Jones MD 08/25/21 0849 08/25/21 1106 Events Date Time Event Comment 08/25/2021 0658 0658 AN Anesthesia Prepped 0714 AN TELEPHONE INFORMATION SUPERVISOR Prepped 0849 An Start Patient ID and [...] By: Capnography, Auscultation, Chest Rise; Placed By: TELEPHONE INFORMATION SUPERVISOR; Extubation Assessment: Suctioned, Alert, Tolerated well, Patient spontaneously breathing, Able to follow simple commands, Deep breathes w/equal chest movements, Lifts et holds head > 5 seconds, Able to swallow, Atraumatic; Removal Date: 08/25/21; Removal Time: 1055; Removal Person: TELEPHONE INFORMATION SUPERVISOR; Removal Reason: End of Case 08/25/21 0858 by Marilee Mcadams CRNA 08/25/21 1055 by Marilee Mcadams CRNA Surgical/Incision 08/25/21; 0932; Surg ical Wound; Back; Incision closed wih savita. Dressed with telfa island dressing.Drain not stitched in place and dressed with 2x2 and medipore tape.; 08/25/21; 1500; (patient discharged) 08/25/21 0932 by Janeth Muhammad RN 08/25/21 1500 by Niurka Thurman RN Closed/Suction Drain 08/25/21; 0956; 1; Distal; Back; Accordion; 10 Fr.; [id number]; [id number]; 04/21/26; Per Order 08/25/21 0956 by Janeth [...] smoker Cardiovascular (+) hypertension, (well controlled)(-) past VA, CAD, angina Neuro/Psych (-) no TIA, no [...] IVPB 2 g, Intravenous, at 200 mL/hr, holistic nutritionist to O.R., 1 dose, First dose on [...] mg documented in this encounter Care Teams Alarm Signal Operator Relationship Specialty Start Date End Date Sj Benson MD PCP - General FAMILY PRACTICE 07/29/21 documented as of this encounter
--- OUTSIDE RECORDS SUMMARY | 2024-11-14 20:29 | XMS_ITS | Encounter Summary ---
Author Organization [facility] Address [address] [place] [address]. [place] [address] [place] [address] Care Team Providers Care Product Manager Financial Services Name Role Phone Sj Benson MD Primary Care Provider [phone] Reason for Visit * Reason Comments Abnormal EKG consult Surgical Clearance Encounter Details Date Type Department Care Team (Late st Contact Info) Description 08/04/2021 2:00 PM CDT Office Visit [facility], [facility] [[email or web address] [address] [place], [place] [id number] Ladarius Avery MD [facility]. [facility] [[email or web address]] [address] [place], [place] [id number] Abnormal EKG (consult); Surgical Clearance Social History [...] and condiments. Pepper, herbs,spices, vinegar, lemon or [place] juices are great for seasoning. Sugar, cocoa [...] for help. Where can I learn more? [place] [employer] https://familydoctor.org/hiue-kdl-ttgjgqdl-skh-d-oblilxi-heart/ [place] [employer] https://www.heart.org/en/healthy-living/healthy-eating/eat-smart/nutrition-basic s/alo-lnxv-oko-lifestyle-recommendations NHS https://www.nhs.uk/live-well/eat-well/ Last Reviewed Date 2020-02-16 Consumer [...] right for you. Copyright Copyright ?? 2020 [employer]. and its affiliates and/or licensors. All rights [...] seeing Lili Delgado in consultation at the [facility] in [place], [place]. Lili Delgado is a 70-year-old male [...] Gatherings with Friends and Family: ??? Attends Faith Services: ??? Active Member of Clubs or [...] BIMAL CARDIOVASCULAR - 08/07/2021 12:50 PM CDT ?[facility], [facility]? [facility] ? Test Date: ?2021-08-04 Pat Name: ? MONTE THUS ? Department: ? Room: ? Gender: ? Male ? Tree Trimmer Helper: ?? dms : ?1950 ? Requested By: LADARIUS AVERY Order Number: [id number] ?Reading : ?? Ladarius Avery ? Measurements Intervals ?[place] ? Rate: ? 69 ? P: ?50 FL: ? 193 ?QRS: ?84 QRSD: ? 109 ?T: ?76 QT: ? 384 ? QTc: ?412 ? Interpretive Statements SINUS RHYTHM COMPARED TO PREVIOUS TRACING No significant change Procedure Note Ladarius Avery MD - 08/07/2021 [facility] Test Date: 2021-08-04 Pat Name: LILI DELGADO Department: Room: Gender: Male Tree Trimmer Helper: dong : 1950 Requested By: LADARIUS AVERY Order Number: [id number] Reading MD: Ladarius Avery Measurements Intervals [place] Rate: 69 P: 50 FL: 193 QRS: 84 QRSD: 109 T: 76 [...] hypertension documented in this encounter Care Teams Product Manager Financial Services Relationship Specialty Start Date End Date Sj Benson MD PCP - General FAMILY PRACTICE 07/29/21 documented as of this encounter
--- OUTSIDE RECORDS SUMMARY | 2024-11-14 20:29 | XMS_ITS | Encounter Summary ---
Author Organization [facility] Address [address] [place] [address]. [place] [address] [place] [address] Care Team Providers Care Grease Rack Worker Name Role Phone Sj Benson MD Primary Care Provider [phone] Reason for Referral * (Routine) - Canceled Specialty Diagnoses / Procedures Referred By Contac t Referred To Contact Procedures PT eval and treat Courtney Blackmon MD 3 [facility] [address] [place] [address] Phone: tel: fax: Referral ID Status Reason Start Date Expiration Date V isits Requested Visits Authorized [id number] Canceled 08/25/2021 09/25/2022 1 1 Reason for Visit * Auth/Cert Specialty Diagnoses / Procedures Referred By Contac t Referred To Contact Diagnoses M48.061, Z01.818 Procedures LUMBAR LAMINECTOMY L4-5 Referral ID Status Reason Start Date Expiration Date Visits Re quested Visits Authorized [id number] 1 1 Encounter Details Date Type Department Care Team (Latest Contact Info) Description 08/25/2021 6:13 AM CDT - 08/25/2021 3:15 PM CDT Hospital Encounter [facility] [place] [address] Courtney Blackmon MD 3 [facility] [address] [place] [id number] Discharge Disposition: Home or Self Care (Routine [...] through Care Everywhere. * Laminectomy Discharge Instructions (Sri Lankan) * General Anesthesia Discharge Instructions ([place]ri Lankan) * Hydrocodone and Acetaminophen, ADULT ([place]ri [place]ankan) * Docusate, ADULT ([place]ri Lankan) documented in this encounter Medications at Time [...] Per phone interview, patient denies having a batch plant supervisor or previous cardiac testing with exception of recent preop EKG. Testing in Cardiology and copied. Clearances requested by surgeon per order form, please request copies once received. Addendum 08/06- Patient rescheduled 2/2 positive UA results. Patient had also been referred to cardiology per PCP for surgical clearance 2/2 abnormal EKG. Patient seen batch plant supervisor Dr. Saez and obtained clearance, now in [...] TESTING. Yes, other than an EKG at [facility] in prep for surgery 07/29/21 AVERAGE BLOOD PRESSURE? Fluctuates, has been told to keep an eye on it. Covid-19 vaccinated in [place]. Will bring card day of surgery. Pt [...] Notified Eliza at Dr Blackmon's office. Contacted [facility], and left voicemail message for Barbara, relaying this information. Will follow up tomorrow. Left message for Barbara at [facility] this morning, to follow up. Received incoming call from Barbara at [facility]. She indicates that pt will be seen by Dr Saez Wednesday at 2pm. Left Message for Eliza at Dr Blackmon's office to relay these developments. Pt rescheduled for surgery due to unfavorable UA results. Pt indicates that he was re-tested today in [place] and Eliza is going to update him [...] (COMPLETED) 2 g, Intravenous, at 200 mL/hr, ballpoint pen cartridge tester to O.R., 1 dose, First dose on [...] - Provider: User Epic) BUpivacaine-EPINEPHrine PF 0.5% -[id number] injection (CANCELED) As needed, Starting on Wed08/25/21 [...] wound) documented in this encounter Care Teams Grease Rack Worker Relationship Specialty Start Date End Date Sj Benson MD PCP - General FAMILY PRACTICE 07/29/21 documented as of this encounter
--- OUTSIDE RECORDS SUMMARY | 2024-11-14 20:29 | XMS_ITS | Encounter Summary ---
Author Organization [facility] Address [address] [place] [address]. [place], [place] [address] [place] [address] Care Team Providers Care Teletray Operator Name Role Phone Sj Benson MD Primary Care Provider [phone] Encounter Details Date Type Department Care Team [...] on filedocumented in this encounter Care Teams Teletray Operator Relationship Specialty Start Date End Date Sj Benson MD PCP - General FAMILY PRACTICE 07/29/21 documented as of this encounter
--- OUTSIDE RECORDS SUMMARY | 2024-11-14 20:29 | XMS_ITS | Encounter Summary ---
Author Organization [facility] Address [address] [place] [address]. [place], [place] [address] [place] [address] Care Team Providers Care Motion Picture Operator Name Role Phone Sj Benson MD Primary Care Provider [phone] Encounter Details Date Type Department Care Team [...] on filedocumented in this encounter Care Teams Motion Picture Operator Relationship Specialty Start Date End Date Sj Benson MD PCP - General FAMILY PRACTICE 07/29/21 documented as of this encounter
--- OUTSIDE RECORDS SUMMARY | 2024-11-14 20:29 | XMS_ITS | Encounter Summary ---
Author Organization [facility] Address [address] [place] [address]. [place] [address] [place] [address] Care Team Providers Care Manager Gift Name Role Phone Sj Benson MD Primary Care Provider [phone] Encounter Details Date Type Department Care Team (Late st Contact Info) Description 07/29/2021 Orders Only [facility] [place], [place] [id number] Courtney Blackmon MD 3 [facility] [address] [place], [place] [id number] Social History Tobacco Use Types Packs/Day Years [...] URINE OMER CATH 07/29/2021 1:07 PM CDT [facility] Comment:CORRECTED ON 07/29 A T 1307: PREVIOUSLY REPORTED URINE CLEAN CATCH COLOR (U) YELLOW 07/29/2021 2:02 PM CDT [facility] TRANSPARENCY TURBID 07/29/2021 2:02 PM T [facility] SPECIFIC GRAVITY (U) 1.024 1.001 - 1.030 07/29/2021 2:02 PM T [facility] U PH 6.5 5.0 - 9.0 07/29/2021 2:02 PM T [facility] LEUKOCYTES (U) 500(A) NEGATIVE 07/29/2021 2:02 PM T [facility] NITRITES 2+(A) NEGATIVE 07/29/2021 2:02 PM T [facility] PROTEIN (U) 50(H) <30 MG/DL 07/29/2021 2:02 PM T [facility] URINE GLUCOSE NORMAL NORMAL MG/DL 07/29/2021 2:02 PM T [facility] KETONES MG/DL (U) NEGATIVE NEGATIVE MG/DL 07/29/2021 2:02 PM [facility] UROBILINOGEN NORMAL NORMAL MG/DL 07/29/2021 2:02 PM T [facility] BILIRUBIN (U) NEGATIVE NEGATIVE MG/DL 07/29/2021 2:02 PM T [facility] BLOOD (U) 1+(A) NEGATIVE 07/29/2021 2:02 PM T [facility] MUCUS FEW /LPF 07/29/2021 2:02 PM T [facility] WBC/HPF 62(H) <6 /HPF 07/29/2021 2:02 PM T [facility] RBC/HPF 29(H) <6 /HPF 07/29/2021 2:02 PM T [facility] BACTERIA (U) RARE(A) NONE /HPF 07/29/2021 2:02 PM CDT [facility] SQUAMOUS EPITHELIALS RARE /HPF 07/29/2021 2:02 PM CDT [facility] URINE SPECIMEN OBTAINED BY CLEAN CATCH PROCEDURE / Unknown 07/29/2021 12:45 PM CDT Courtney Blackmon MD URINE ORDERABLES Edited Resu lt - Final Performing Organization Address City/[facility]/ZIP Co de Phone Number [facility] [address] [place] [address], [place] [phone] * PTT, PARTIAL THROMBOPLASTIN TIME (07/29/2021 12:40 PM CDT) PTT 28.4 25.1 - 36.5 SEC 07/29/2021 2:13 PM CDT [facility] 07/29/2021 12:4 0 PM CDT Courtney Blackmon MD LABORATORY Final Result Performing Organization Address [facility] Co de Phone Number [facility] [address] [place] [address], [place] [phone] * (ABNORMAL) PROTIME/INR, VENOUS (07/29/2021 12:40 PM CDT) PROTIME 13.1(H) 10.2 - 12.9 SEC 07/29/2021 2:13 PM CDT [facility] INR 1.1 07/29/2021 2:13 PM CDT [facility] Comment: Recommended INR Therapeutic Goals: ??2.0-3.0 Routine Therapy ??2.5-3.5 Mechanical Prosthetic Valves (High Risk) 07/29/2021 12:4 0 PM CDT us Courtney Blackmon MD LABORATORY Final Result [facility] [address] [place] [address], [place] [phone] * (ABNORMAL) CBC W/DIFF AUTOMATED (07/29/2021 12:40 PM CDT) Pathologist [facility] WBC 7.8 4.5 - 11.0 x10'3/uL 07/29/2021 1:48 PM CDT [facility] RBC 4.36(L) 4.70 - 6.10 x10'6/uL 07/29/2021 1:48 PM CDT [facility] HGB 13.7(L) 14.0 - 18.0 G/DL 07/29/2021 1:48 PM CDT [facility] HCT 40.6(L) 43.0 - 54.0 % 07/29/2021 1:48 PM CDT [facility] MCV 93.1 80.0 - 94.0 FL 07/29/2021 1:48 PM CDT [facility] MCH 31.4(H) 27.0 - 31.0 PG 07/29/2021 1:48 PM CDT [facility] MCHC 33.7 32.0 - 36.0 G/DL 07/29/2021 1:48 PM CDT [facility] RDW 12.0 11.5 - 14.5 % 07/29/2021 1:48 PM CDT [facility] PLT 241 130 - 400 x10'3/uL 07/29/2021 1:48 PM CDT [facility] MPV 10.2 9.3 - 12.2 FL 07/29/2021 1:48 PM CDT [facility] DIFFERENTIAL TYPE AUTOMATED DIFFERENTIAL 07/29/2021 1:48 PM CDT [facility] NEUTROPHILS % 59.5 % 07/29/2021 1:48 PM CDT [facility] LYMPHOCYTES % 25.8 % 07/29/2021 1:48 PM CDT [facility] MONOCYTES % 13.0 % 07/29/2021 1:48 PM CDT [facility] EOSINOPHILS 0.8 % 07/29/2021 1:48 PM CDT [facility] BASOPHILS 0.6 % 07/29/2021 1:48 PM CDT [facility] IMMATURE GRANS % 0.3 % 07/29/20 1:48 PM CDT [facility] ABS. NEUTROPHILS TOTAL 4.65 1.80 - 7.70 x10'3/uL 07/29/2021 1:48 PM CDT [facility] ABS. LYMPHOCYTES 2.02 1.00 - 4.80 x10'3/uL 07/29/2021 1:48 PM CDT [facility] ABS. MONOCYTES 1.02(H) 0.30 - 0.82 x10'3/uL 07/29/2021 1:48 PM CDT [facility] ABS. EOSINOPHILS 0.06 0.04 - 0.54 x10'3/uL 07/29/2021 1:48 PM CDT [facility] ABS. BASOPHILS 0.05 0.01 - 0.08 x10'3/uL 07/29/2021 1:48 PM CDT [facility] ABS. IMMATURE GRANULOCYTES 0.02 0.00 - 0.49 x10'3/uL 07/29/2021 1:48 PM CDT [facility] 07/29/2021 12:4 0 PM CDT us Courtney Blackmon MD LABORATORY Final Result [facility] [address] [place] [address], [place] [phone] * (ABNORMAL) BASIC METABOLIC PANEL (07/29/2021 12:40 PM CDT) [facility] GLUCOSE 89 70 - 99 MG/DL 07/29/2021 2:09 PM CDT [facility] BUN 22(H) 7 - 18 MG/DL 07/29/2021 2:09 PM CDT [facility] CREATININE S/P/B 1.45(H) 0.7 - 1.3 MG/DL 07/29/2021 2:09 PM CDT [facility] SODIUM S/P/B 141 136 - 145 MMOL/L 07/29/2021 2:09 PM CDT [facility] POTASSIUM S/P/B 4.0 3.5 - 5.1 MMOL/L 07/29/2021 2:09 PM CDT [facility] CHLORIDE S/P/B 109(H) 100 - 108 MMOL/L 07/29/2021 2:09 PM CDT [facility] CO2 26.4 21 - 32 MMOL/L 07/29/2021 2:09 PM CDT [facility] CALCIUM S/P/B 9.1 8.5 - 10.1 MG/DL 07/29/2021 2:09 PM CDT [facility] ANION GAP 5.6 5 - 15 MMOL/L 07/29/2021 2:09 PM CDT [facility] BUN CREATININE RATIO 15.2 6 - 26 07/29/2021 2:09 PM CDT [facility] EGFR NON-AFR. AMER. 48(L) >90 ML/MIN/1.7 3 M2 07/29/2021 2:09 PM CDT [facility] EGFR AFR. AMER. 55(L) >90 ML/MIN/1.7 3 M2 07/29/2021 2:09 PM CDT [facility] Comment: NOTE: eGFR is not calculated for patients <18 years of age. This is an estimated GFR (CKD EPI) and should not be used for calculating drug doses. 07/29/2021 12:4 0 PM CDT Courtney Blackmon MD LABORATORY Final Result [facility] [address] [place] [address], documented in this encounter Visit Diagnoses Diagnosis Pre-op testing- Primary Preoperative examination, unspecified documented in this encounter Care Teams Manager Gift Relationship Specialty Start Date End Date Sj Benson MD PCP - General FAMILY PRACTICE 07/29/21 documented as of this encounter
--- OUTSIDE RECORDS SUMMARY | 2024-11-14 20:29 | XMS_ITS | Encounter Summary ---
Author Organization [facility] Address [address] [place] [address]. [place], [place] [address] [place] [address] Care Team Providers Care Commercial Pest Control Representative Name Role Phone Sj Benson MD Primary Care Provider [phone] Encounter Details Date Type Department Care Team [...] on filedocumented in this encounter Care Teams Commercial Pest Control Representative Relationship Specialty Start Date End Date Sj Benson MD PCP - General FAMILY PRACTICE 07/29/21 documented as of this encounter
--- OUTSIDE RECORDS SUMMARY | 2024-11-14 20:29 | XMS_ITS | Encounter Summary ---
Author Organization [facility] Address [address] [place] [address]. [place] [address] [place] [address] Care Team Providers Care Director Of Planning Name Role Phone Sj Benson MD Primary Care Provider [phone] Encounter Details Date Type Department Care Team (Latest Contact Info) Description 03/27/2022 8:36 AM CDT - 03/27/2022 11:59 PM CDT Hospital Encounter [facility] Imaging [address] [place], [place] [id number] Courtney Blackmon MD 3 [facility] [address] [place], [place] [phone] Discharge Disposition: Home or Self Care (Routine [...] status documented in this encounter Care Teams Director Of Planning Relationship Specialty Start Date End Date Sj Benson MD PCP - General FAMILY PRACTICE 07/29/21 documented as of this encounter
--- OUTSIDE RECORDS SUMMARY | 2024-11-14 20:29 | XMS_ITS | Encounter Summary ---
Author Organization [facility] Address [address] [place] [address]. [place] [address] [place] [address] Care Team Providers Care Flash Welding Machine Operator Name Role Phone Sj Benson MD Primary Care Provider [phone] Encounter Details Date Type Department Care Team (Latest Contact Info) Description 07/29/2021 12:22 PM CDT - 07/29/2021 11:59 PM CDT Hospital Encounter [facility] [place] [address] Courtney Blackmon MD 3 [facility] [address] [place], [place] [address] Discharge Disposition: Home or Self Care (Routine [...] URINE OMER CATH 07/29/2021 1:07 PM CDT [facility] Comment:CORRECTED ON 07/29 A T 1307: PREVIOUSLY REPORTED URINE CLEAN CATCH COLOR (U) YELLOW 07/29/2021 2:02 PM CDT [facility] TRANSPARENCY TURBID 07/29/2021 2:02 PM CDT [facility] SPECIFIC GRAVITY (U) 1.024 1.001 - 1.030 07/29/2021 2:02 PM CDT [facility] U PH 6.5 5.0 - 9.0 07/29/2021 2:02 PM T [facility] LEUKOCYTES (U) 500(A) NEGATIVE 07/29/2021 2:02 PM T [facility] NITRITES 2+(A) NEGATIVE 07/29/2021 2:02 PM T [facility] PROTEIN (U) 50(H) <30 MG/DL 07/29/2021 2:02 PM T [facility] URINE GLUCOSE NORMAL NORMAL MG/DL 07/29/2021 2:02 PM T [facility] KETONES MG/DL (U) NEGATIVE NEGATIVE MG/DL 07/29/2021 2:02 PM T [facility] UROBILINOGEN NORMAL NORMAL MG/DL 07/29/2021 2:02 PM T [facility] BILIRUBIN (U) NEGATIVE NEGATIVE MG/DL 07/29/2021 2:02 PM T [facility] BLOOD (U) 1+(A) NEGATIVE 07/29/2021 2:02 PM T [facility] MUCUS FEW /LPF 07/29/2021 2:02 PM T [facility] WBC/HPF 62(H) <6 /HPF 07/29/2021 2:02 PM CDT [facility] RBC/HPF 29(H) <6 /HPF 07/29/2021 2:02 PM CDT [facility] BACTERIA (U) RARE(A) NONE /HPF 07/29/2021 2:02 PM CDT [facility] SQUAMOUS EPITHELIALS RARE /HPF 07/29/2021 2:02 PM CDT [facility] URINE SPECIMEN OBTAINED BY CLEAN CATCH PROCEDURE / Unknown 07/29/2021 12:45 PM CDT Courtney Blackmon MD URINE ORDERABLES Edited Resu lt - Final Performing Organization Address City/[facility] [address] [facility]/ZIP Co de Phone Number [facility] [address] [place] [address], [place] [phone] * PTT, PARTIAL THROMBOPLASTIN TIME (07/29/2021 12:40 PM CDT) PTT 28.4 25.1 - 36.5 SEC 07/29/2021 2:13 PM CDT [facility] 07/29/2021 12:4 0 PM CDT Courtney Blackmon MD LABORATORY Final Result [facility] [address] [place] [address], [place] [phone] * (ABNORMAL) PROTIME/INR, VENOUS (07/29/2021 12:40 PM CDT) PROTIME 13.1(H) 10.2 - 12.9 SEC 07/29/2021 2:13 PM CDT [facility] INR 1.1 07/29/2021 2:13 PM CDT [facility] Comment: Recommended INR Therapeutic Goals: ??2.0-3.0 Routine Therapy ??2.5-3.5 Mechanical Prosthetic Valves (High Risk) 07/29/2021 12:4 0 PM CDT Courtney Blackmon MD LABORATORY Final Result [facility] [address] [place] [address], * (ABNORMAL) CBC W/DIFF AUTOMATED (07/29/2021 12:40 PM CDT) WBC 7.8 4.5 - 11.0 x10'3/uL 07/29/2021 1:48 PM CDT [facility] RBC 4.36(L) 4.70 - 6.10 x10'6/uL 07/29/2021 1:48 PM CDT [facility] HGB 13.7(L) 14.0 - 18.0 G/DL 07/29/2021 1:48 PM CDT [facility] HCT 40.6(L) 43.0 - 54.0 % 07/29/2021 1:48 PM CDT [facility] MCV 93.1 80.0 - 94.0 FL 07/29/2021 1:48 PM CDT [facility] MCH 31.4(H) 27.0 - 31.0 PG 07/29/2021 1:48 PM CDT [facility] MCHC 33.7 32.0 - 36.0 G/DL 07/29/2021 1:48 PM CDT [facility] RDW 12.0 11.5 - 14.5 % 07/29/2021 1:48 PM CDT [facility] PLT 241 130 - 400 x10'3/uL 07/29/2021 1:48 PM CDT [facility] MPV 10.2 9.3 - 12.2 FL 07/29/2021 1:48 PM CDT [facility] DIFFERENTIAL TYPE AUTOMATED DIFFERENTIAL 07/29/2021 1:48 PM CDT [facility] NEUTROPHILS % 59.5 % 07/29/2021 1:48 PM CDT [facility] LYMPHOCYTES % 25.8 % 07/29/2021 1:48 PM CDT [facility] MONOCYTES % 13.0 % 07/29/2021 1:48 PM CDT [facility] EOSINOPHILS 0.8 % 07/29/2021 1:48 PM CDT [facility] BASOPHILS 0.6 % 07/29/2021 1:48 PM CDT [facility] IMMATURE GRANS % 0.3 % 07/29/20 1:48 PM CDT [facility] ABS. NEUTROPHILS TOTAL 4.65 1.80 - 7.70 x10'3/uL 07/29/2021 1:48 PM CDT [facility] ABS. LYMPHOCYTES 2.02 1.00 - 4.80 x10'3/uL 07/29/2021 1:48 PM CDT [facility] ABS. MONOCYTES 1.02(H) 0.30 - 0.82 x10'3/uL 07/29/2021 1:48 PM CDT [facility] ABS. EOSINOPHILS 0.06 0.04 - 0.54 x10'3/uL 07/29/2021 1:48 PM CDT [facility] ABS. BASOPHILS 0.05 0.01 - 0.08 x10'3/uL 07/29/2021 1:48 PM CDT [facility] ABS. IMMATURE GRANULOCYTES 0.02 0.00 - 0.49 x10'3/uL 07/29/2021 1:48 PM CDT [facility] 07/29/2021 12:4 0 PM CDT us Courtney Blackmon MD LABORATORY Final Result [facility] [address] [place] [address], [place] [phone] * (ABNORMAL) BASIC METABOLIC PANEL (07/29/2021 12:40 PM CDT) GLUCOSE 89 70 - 99 MG/DL 07/29/2021 2:09 PM CDT [facility] BUN 22(H) 7 - 18 MG/DL 07/29/2021 2:09 PM CDT [facility] CREATININE S/P/B 1.45(H) 0.7 - 1.3 MG/DL 07/29/2021 2:09 PM CDT [facility] SODIUM S/P/B 141 136 - 145 MMOL/L 07/29/2021 2:09 PM CDT [facility] POTASSIUM S/P/B 4.0 3.5 - 5.1 MMOL/L 07/29/2021 2:09 PM CDT [facility] CHLORIDE S/P/B 109(H) 100 - 108 MMOL/L 07/29/2021 2:09 PM CDT [facility] CO2 26.4 21 - 32 MMOL/L 07/29/2021 2:09 PM CDT [facility] CALCIUM S/P/B 9.1 8.5 - 10.1 MG/DL 07/29/2021 2:09 PM CDT [facility] ANION GAP 5.6 5 - 15 MMOL/L 07/29/2021 2:09 PM CDT [facility] BUN CREATININE RATIO 15.2 6 - 26 07/29/2021 2:09 PM CDT [facility] EGFR NON-AFR. AMER. 48(L) >90 ML/MIN/1.7 3 M2 07/29/2021 2:09 PM CDT [facility] EGFR AFR. AMER. 55(L) >90 ML/MIN/1.7 3 M2 07/29/2021 2:09 PM CDT [facility] Comment: NOTE: eGFR is not calculated for patients <18 years of age. This is an estimated GFR (CKD EPI) and should not be used for calculating drug doses. 07/29/2021 12:4 0 PM CDT us Courtney Blackmon MD LABORATORY Final Result [facility] [address] [place] [address], documented in this encounter Visit Diagnoses Diagnosis Pre-op testing Preoperative examination, unspecified documented in this encounter Care Teams Flash Welding Machine Operator Relationship Specialty Start Date End Date Sj Benson MD PCP - General FAMILY PRACTICE 07/29/21 documented as of this encounter
--- OUTSIDE RECORDS SUMMARY | 2024-11-14 20:29 | XMS_ITS | Encounter Summary ---
Author Organization [facility] Address [address] [place] [address]. [place] [address] [place] [address] Care Team Providers Care Upper Trimmer Name Role Phone Sj Benson MD Primary Care Provider Reason for Visit * Auth/Cert Specialty Diagnoses / Procedures Referred By Hector sosa Referred To Contact Diagnoses M48.061, Z01.818 Procedures LUMBAR LAMINECTOMY L4-5 Referral ID Status Reason Start Date Expiration Date Visits Re quested Visits Authorized [id number] 1 1 Encounter Details Date Type Department Care Team (Late st Contact Info) Description 08/25/2021 8:30 AM CDT - 08/25/2021 10:45 AM CDT Surgery [facility] [place], [place] [address] Courtney Blackmon MD [address] [facility] [address] [place] [address] LUMBAR LAMINECTOMY L4-5 Surgery Details Date/Time Status [...] Case Notes SCHED BY FAX ON 07/29/21 [facility] PHONE ASSESS Special Needs PRONERNFA [...] through Care Everywhere. * Laminectomy Discharge Instructions (Martiniquais) * General Anesthesia Discharge Instructions (Martiniquais) * Hydrocodone and Acetaminophen, ADULT (Martiniquais) * Docusate, ADULT (Martiniquais) documented in this encounter Medications at Time [...] Per phone interview, patient denies having a distribution systems superintendent or previous cardiac testing with exception of recent preop EKG. Testing in Cardiology and copied. Clearances requested by surgeon per order form, please request copies once received. Addendum 08/06- Patient rescheduled 2/2 positive UA results. Patient had also been referred to cardiology per PCP for surgical clearance 2/2 abnormal EKG. Patient seen distribution systems superintendent Dr. Saez and obtained clearance, now in [...] TESTING. Yes, other than an EKG at [facility] in prep for surgery 07/29/21 AVERAGE BLOOD PRESSURE? Fluctuates, has been told to keep an eye on it. Covid-19 vaccinated in [place]. Will bring card day of surgery. Pt [...] up tomorrow. Left message for Barbara at [facility] this morning, to follow up. Received incoming call from Barbara at [facility]. She indicates that pt will be seen by Dr Saez Wednesday at 2pm. Left Message for Eliza at Dr Blackmon's office to relay these developments. Pt rescheduled for surgery due to unfavorable UA results. Pt indicates that he was re-tested today in [place] and Eliza is going to update him [...] AM CDT 1,000 mg BUpivacaine-EPINEPHrine PF 0.5% -1:076202 injection As needed, Starting on Wed08/25/21 at [...] (COMPLETED) 2 g, Intravenous, at 200 mL/hr, topstitcher zigzag to O.R., 1 dose, First dose on [...] - Provider: User Epic) BUpivacaine-EPINEPHrine PF 0.5% -1:374419 injection (CANCELED) As needed, Starting on Wed08/25/21 [...] wound) documented in this encounter Care Teams Upper Trimmer Relationship Specialty Start Date End Date Sj Benson MD PCP - General FAMILY PRACTICE 07/29/21 documented as of this encounter
--- OUTSIDE RECORDS SUMMARY | 2024-11-14 20:29 | XMS_ITS | Encounter Summary ---
Author Organization [facility] Address [address] [place] [address]. [place] [address] [place] [address] Care Team Providers Care Car Shakeout Operator Name Role Phone Sj Benson MD Primary Care Provider [phone] Encounter Details Date Type Department Care Team (Latest Contact Info) Description 07/29/2021 12:15 PM CDT - 07/29/2021 12:21 PM CDT Hospital Encounter Health system Cardiology EKG [address] [place], [place] [id number] Courtney Norris MD [address] [facility] [address] [place], [place] [id number] Discharge Disposition: Home or Self Care (Routine [...] PM CDT) 07/29/2021 1:39 PM CDT Narrative [facility] - 07/30/2021 11:45 AM CDT ?[facility] ? [address] ? Test Date: ?2021-07-29 Pat Name: ? MONTE THUS ? Department: ? Room: ? Gender: ? Male ? Fiberglass Model Maker: ?? CDG : ?1950 ? Requested By: COURTNEY NORRIS Order Number: [id number] ? Reading MD: ?? Alcides Perry ? Measurements Intervals ?[place] ? Rate: ? 59 ? P: ?72 [place]: ? 191 ?QRS: ?-5 QRSD: ? 121 ?T: ?-4 QT: ? 409 ? QTc: ?405 ? Interpretive Statements SINUS BRADYCARDIA MODERATE INTRAVENTRICULAR CONDUCTION DELAY NONSPECIFIC ST & T-WAVE ABNORMALITY No previous ECG available for comparison Procedure Note Alcides Perry MD - 07/30/2021 [facility] [address] Test Date: 2021-07-29 Pat Name: RYAN DELGADO Department: Room: Gender: Male Fiberglass Model Maker: CDG : 1950 Requested By: COURTNEY NORRIS Order Number: [id number] Reading MD: Alcides Perry Measurements Intervals [place] Rate: 59 P: 72 NJ: 191 QRS: -5 QRSD: 121 T: -4 QT: 409 QTc: 405 Interpretive Statements SINUS BRADYCARDIA MODERATE INTRAVENTRICULAR CONDUCTION DELAY NONSPECIFIC ST & T-WAVE ABNORMALITY No previous ECG available for comparison us Courtney Norris MD ECG ORDERABLES Final Result [facility] documented in this encounter Visit Diagnoses Diagnosis Pre-op testing- Primary Preoperative examination, unspecified documented in this encounter Care Teams Car Shakeout Operator Relationship Specialty Start Date End Date Sj Benson MD PCP - General FAMILY PRACTICE 07/29/21 documented as of this encounter
--- OUTSIDE RECORDS SUMMARY | 2024-11-14 20:29 | XMS_ITS | Encounter Summary ---
Author Organization [facility] Address [address] [place] [address]. [place], [place] [address] [place] [address] Care Team Providers Care Calendering Machine Operator Name Role Phone Sj Benson MD Primary Care Provider [phone] Encounter Details Date Type Department Care Team [...] on filedocumented in this encounter Care Teams Calendering Machine Operator Relationship Specialty Start Date End Date Sj Benson MD PCP - General FAMILY PRACTICE 07/29/21 documented as of this encounter
--- OUTSIDE RECORDS SUMMARY | 2024-11-14 20:30 | XMS_ITS | Encounter Summary ---
Author Organization [facility] Address [address] [place] [address] Care Team Providers Care Berry Picker Name Role Phone Unavailable Primary Care Provider [...]
--- OUTSIDE RECORDS SUMMARY | 2024-11-14 20:30 | XMS_ITS | Encounter Summary ---
Author Organization [facility] Address [address] [place] [address] Care Team Providers Care Tobacco Educator Name Role Phone Unavailable Primary Care Provider [...]
--- OUTSIDE RECORDS SUMMARY | 2024-11-14 20:30 | XMS_ITS | Encounter Summary ---
Author Organization [facility] Address [address] [place] [address] Care Team Providers Care Wood Veneer Taper Name Role Phone Unavailable Primary Care Provider [...]
--- OUTSIDE RECORDS SUMMARY | 2024-11-14 20:30 | XMS_ITS | Clinical Summary ---
Author Organization [facility] Address [address] [facility] [facility] [place] [address] Phone Care Team Providers Care Thread Clipper Name Role Phone Unavailable Primary Care [...]
--- OUTSIDE RECORDS SUMMARY | 2024-11-14 20:30 | XMS_ITS | Encounter Summary ---
Author Organization [facility] Address [address] [place] [address] Care Team Providers Care Nutrition Tech Name Role Phone Unavailable Primary Care Provider [...]
--- OUTSIDE RECORDS SUMMARY | 2024-11-14 20:30 | XMS_ITS | Encounter Summary ---
Author Organization [facility] Address [address] [place] [address] Care Team Providers Care Accounting Officer Name Role Phone Unavailable Primary Care Provider [...]
--- OUTSIDE RECORDS SUMMARY | 2024-11-14 20:30 | XMS_ITS | Continuity of Care Document ---
Author Organization [facility] Address [address] [place] [address] [address] [place] [address] Phone Care Team Providers Care Asbestos Worker Helper Name Role Phone Elton Sprague Unavailable Unavailable Advance Directives Directive Yes / No Effective Date File Name No Information Encounters Encounter Description Practice Location Reason(s) For Visit Diagnoses Date Provider Providers Copied on Encounter [facility], [id number] [place] [address] [address], [place], [id number], [place] tel:[phone] [facility] No Information Dec-2 0-200 6 Doisy Edward. [address] , [address], [place], [address], [place]. tel:[phone] Family History Family Member Type Diagnosis Age At Onset No Information Payers Payer name Insurance type Covered constitution party ID Authoriza tion(s) [place] FEP BL [id number] Social History Type Description Quantity Date Captured [...]
--- OUTSIDE RECORDS SUMMARY | 2024-11-14 20:30 | XMS_ITS | Encounter Summary ---
Author Organization [facility] Address [address] [place] [address] Care Team Providers Care Under Sheriff Name Role Phone Unavailable Primary Care Provider [...]
--- OUTSIDE RECORDS SUMMARY | 2024-11-14 20:30 | XMS_ITS | Encounter Summary ---
Author Organization [facility] Address [address] [place] [address] Care Team Providers Care Audio Visual Project Manager Name Role Phone Unavailable Primary Care Provider Unavailabl e Reason for Visit * Reason Comments Consult Low back, right hip, left leg burning. Encounter Details Date Type Department Care Team (Late st Contact Info) Description 06/27/2024 1:30 PM CDT Office Visit [facility] Neurosurgery [facility] [address] [facility] [address] [place] [address] Riley Huddleston MD [address] [facility] [address] [place] [address] Thoracic myelopathy (Primary Dx) Social [...] Visit Date: 06/30/24 Attending: Riley Huddleston MD, [facility] Office [facility] [...] wide based gait. Review of Xrays: [place] shows evidence of decompression at the [...] will refer him to Dr. Robles at [facility] for evaluation. We will not set up a scheduled followup appointment. His symptoms do not seem to align with his degenerative cervical and lumbar pathology. Return for No f/u. Referral to Dr. Robles at [facility]. for evaluation of recurrent thoracic stenosis.. [...]
--- OUTSIDE RECORDS SUMMARY | 2024-11-14 20:30 | XMS_ITS | Encounter Summary ---
Author Organization [facility] Address [address] [place] [address] Care Team Providers Care Social Worker Clinical Name Role Phone Unavailable Primary Care Provider [...]
--- OUTSIDE RECORDS SUMMARY | 2024-11-14 20:30 | XMS_ITS | Encounter Summary ---
Author Organization [facility] Address [address] [place] [address] Care Team Providers Care Wall Washer Name Role Phone Unavailable Primary Care Provider Unavailabl e Encounter Details Date Type Department Care Team (Late st Contact Info) Description 06/27/2024 Orders Only [facility] Neurosurgery S [facility] [address] [facility] [address] [place] [address] Provider, Abstract NO ADDRESS ON [...] Spine Other Abstract Provider MR ORDERABLES * [facility] XR SPINE LUMBAR COMP W BENDING MIN 6 VIEWS (06/11/2023 2:11 PM CDT) Abstract Provider [facility] IMAGING * MRI LUMBAR W WO CONTRAST (06/11/2023 2:04 PM CDT) Anatomical Region Laterality Modality Spine Other Abstract Provider MR ORDERABLES documented in this encounter Visit Diagnoses Not on filedocumented in this encounter
--- OUTSIDE RECORDS SUMMARY | 2024-11-14 20:30 | XMS_ITS | Encounter Summary ---
Author Organization [facility] Address [address] [place] [address] Care Team Providers Care Radio Communications Mechanician Name Role Phone Unavailable Primary Care Provider [...]
--- OUTSIDE RECORDS SUMMARY | 2024-11-14 20:30 | XMS_ITS | Encounter Summary ---
Author Organization [facility] Address [address] [place] [address] Care Team Providers Care Founder President And Ceo Name Role Phone Unavailable Primary Care Provider [...]
--- OUTSIDE RECORDS SUMMARY | 2024-11-14 20:30 | XMS_ITS | Encounter Summary ---
Author Organization [facility] Address [address] [place] [address] Care Team Providers Care Pocket Grinder Operator Name Role Phone Unavailable Primary Care [...]
--- OUTSIDE RECORDS SUMMARY | 2024-11-14 20:30 | XMS_ITS | Encounter Summary ---
Author Organization [facility] Address [address] [place] [address] Care Team Providers Care Secondary Special Education Teacher Name Role Phone Unavailable Primary Care [...]
--- OUTSIDE RECORDS SUMMARY | 2024-11-14 20:31 | XMS_ITS | Encounter Summary ---
Author Organization [facility] Address [address] [place] [address] Phone Care Team Providers Care [place] Leverman Name Role Phone Sj Benson MD Primary Care Provider [phone] Encounter Details Date Type Department Care Team (Late st Contact Info) Description 10/09/2024 8:55 AM CEMETERY MANAGER Ancillary Procedure [facility] IP [address] [facility] [address] [place] [address] Social History Tobacco Use Types [...] on file Legal Sex Male 12:23 PM CEMETERY MANAGER Gender Identity Not on file Sexual Orientation Not on file documented as of this encounter Plan of Treatment Not on file documented as of this encounter Procedures Procedure Name Priority Date/Time Associated Diagnosis Comments US VEIN DUPLEX LOWER EXTREMITY BILATERAL COMPLETE ED Urgent/IP Urgent 10/09/2024 10:08 AM CEMETERY MANAGER documented in this encounter Results * US Vein Duplex Lower Extremity Bilateral Complete (10/09/2024 10:08 AM CEMETERY MANAGER) Anatomical Region Laterality Modality Vascular Bilateral Ultrasound 10/09/2024 9:49 AM CEMETERY MANAGER Narrative 10/09/2024 11:51 AM CEMETERY MANAGER [facility] - Department of Vascular Surgery, Vascular Laboratory [address] [place] [address] Lower Extremity Venous Ultrasound Report Patient Name: RYAN DELGADO F : 1950 (74y ) Study Date: 10/09/2024 9:49:45 AM Gender: M Tech: [place] Location: [id number] Ref Provider: OSIRIS OLIVEIRA ?Quality: Adequate Order [...] Pain in Leg, Right - FINDINGS: Performing Sewer And Inspector: Niurka Krishna RVT. Right: Duplex scan reveals [...] above. Electronically Signed By: Tyshawn Mullins MD [facility] 2024-10-09 11:50:17 CEMETERY MANAGER Procedure Note Tyshawn Mullins MD - 10/09/2024 [facility] - Department of Vascular Surgery,Vascular Laboratory [address] [place] [address] Lower Extremity Venous Ultrasound Report Patient Name: RYAN DELGADO F : 1950 (74y ) Study Date: 10/09/2024 9:49:45 AM Gender: M Tech: [place] Location: [id number] Ref Provider: OSIRIS OLIVEIRA Quality: Adequate Order [...] Pain in Leg, Right - FINDINGS: Performing Sewer And Inspector: Niurka Krishna RVT. Right: Duplex scan reveals [...] above. Electronically Signed By: Tyshawn Mullins MD [facility] 2024-10-09 11:50:17 CEMETERY MANAGER us Osiris Oliveira COMMERCIAL FRONT LOAD DRIVER IMG US PROCEDURES Final Result documented in this encounter Visit Diagnoses Not on filedocumented in this encounter Care Teams [place] Leverman Relationship Specialty Start Date End Date Sj Benson MD [address] [facility] [place] [address] PCP - General Family Medicine 07/05/24 documented as of this encounter
--- OUTSIDE RECORDS SUMMARY | 2024-11-14 20:31 | XMS_ITS | Encounter Summary ---
Author Organization [facility] Address [address] [place] [address] Phone Care Team Providers Care Project Architect Name Role Phone Sj Benson MD Primary Care Provider [phone] Encounter Details Date Type Department Care Team (Late st Contact Info) Description 10/13/2024 8:10 AM HIGH RAW SUGAR BOILER Ancillary Procedure [facility] IP [address] [facility] [address] [place] [address] Social History Tobacco Use Types [...] on file Legal Sex Male 12:23 PM HIGH RAW SUGAR BOILER Gender Identity Not on file Sexual Orientation Not on file documented as of this encounter Plan of Treatment Not on file documented as of this encounter Procedures Procedure Name Priority Date/Time Associated Diagnosis Comments US VEIN DUPLEX LOWER EXTREMITY BILATERAL COMPLETE IP Routine 10/13/2024 9:43 AM HIGH RAW SUGAR BOILER documented in this encounter Results * US Vein Duplex Lower Extremity Bilateral Complete (10/13/2024 9:43 AM HIGH RAW SUGAR BOILER) Anatomical Region Laterality Modality Vascular Bilateral Ultrasound 10/13/2024 9:05 AM HIGH RAW SUGAR BOILER Narrative 10/13/2024 1:52 PM HIGH RAW SUGAR BOILER [facility] - Department of Vascular Surgery, Vascular Laboratory [address] [place] [address] Lower Extremity Venous Ultrasound Report Patient Name: RYAN DELGADO F : 1950 (74y ) Study Date: 10/13/2024 9:05:32 AM Gender: M Tech: SAGAR Location: [id number] Ref Provider: MEGHAN WHYTE Quality: Adequate Order [...] thrombus size per hematology - FINDINGS: Performing J2Ee Software Engineer: Jessica Aguilar RVT. Right: Duplex scan reveals [...] on the above date to Meghan Whyte CERTIFIED ADAPTED PHYSICAL EDUCATOR at 9:40am. CONCLUSIONS: 1. There is acute [...] Tyshawn Mullins MD FACS 10/13/2024 1:52:11 PM HIGH RAW SUGAR BOILER Procedure Note Tyshawn Mullins MD - 10/13/2024 [facility] - Department of Vascular Surgery,Vascular Laboratory [address] [place] [address] Lower Extremity Venous Ultrasound Report Patient Name: RYAN DELGADO F : 1950 (74y ) Study Date: 10/13/2024 9:05:32 AM Gender: M Tech: Location: [id number] Ref Provider: MEGHAN WHYTE Quality: Adequate Order [...] thrombus size per hematology - FINDINGS: Performing J2Ee Software Engineer: Jessica Aguilar RVT. Right: Duplex scan reveals [...] above. Electronically Signed By: Tyshawn Mullins MD [facility] 10/13/2024 1:52:11 PM HIGH RAW SUGAR BOILER us Meghan Whyte CERTIFIED ADAPTED PHYSICAL EDUCATOR IMG US PROCEDURES Final Result documented in this encounter Visit Diagnoses Not on filedocumented in this encounter Care Teams Project Architect Relationship Specialty Start Date End Date Sj Benson MD [address] [facility] [place] [address] PCP - General Family Medicine 07/05/24 documented as of this encounter
--- OUTSIDE RECORDS SUMMARY | 2024-11-14 20:31 | XMS_ITS | Referral Summary ---
Author Organization [facility] Address [address] [place] [address] Care Team Providers Care Boring Machine Feeder Name Role Phone Sj Benson MD Primary Care Provider [phone] Encounters Date Type Department Care Team Description 11/07/2024 Telephone [facility] Neurosurgery [address] [facility] 6th [place] [address] [place] [address] James Robles MD 11/06/2024 11:07 AM LEAF BLENDER - 11/06/2024 11:59 PM LEAF BLENDER Hospital Encounter [facility] Emergency, Room R Discharge Disposition: Discharge to home or self care 10/02/2024 5:29 AM LEAF BLENDER - 10/14/2024 2:41 PM LEAF BLENDER Hospital Encounter [facility] [address] [place] [id number] James Robles MD Thoracic myelopathy Discharge Disposition: Discharge to an IP Rehab facility 10/13/2024 8:10 AM LEAF BLENDER Ancillary Procedure [facility] Vascular Lab IP [address] [facility] [address] [place] [phone] 10/09/2024 Orders Only [facility] Hematology [address] [facility] Floor 6 [place] [phone] Claudia Ryan NP Hospital discharge follow-up (Primary Dx) 10/09/2024 Telephone [facility] Cardiology [address] [facility] 8th [place] [address] [place] [address] Stephany Carver 10/09/2024 8:55 AM LEAF BLENDER Ancillary Procedure [facility] Vascular Lab IP [address] [facility] [address] [place] [address] 10/02/2024 Orders Only [facility] Operating Room 1 [place] [address] James Robles MD 10/02/2024 7:30 AM LEAF BLENDER - 10/02/2024 3:05 PM LEAF BLENDER Surgery 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 Operating Room 1 [place] [address] Marimar Carr MD PhD Sully Archer NP 09/13/2024 10:[address] [facility] [address] [facility] [address] [place] [address] Preoperative testing; Thoracic myelopathy 09/13/2024 10:30 AM CDT Pre-Admission Testing [facility] Pre Anesthesia Testing [address] [place] [address] Preoperative testing (Primary Dx) 08/16/2024 Telephone [facility] Neurosurgery [address] [place] [address] Medical Office Building 4 [address] [place] [phone] James Robles MD from Last 3 Months [...] on file Legal Sex Male 12:23 PM LEAF BLENDER Gender Identity Not on file Sexual Orientation Not on file Last Filed Vital Signs Vital Sign Reading Time Taken Comments Blood Pressure 109/63 10/14/2024 12:17 PM LEAF BLENDER Pulse 60 10/14/2024 12:17 PM LEAF BLENDER Temperature 36.6 ??C (97.9 ??F) 10/14/2024 1 2:17 PM LEAF BLENDER Respiratory Rate 16 10/14/2024 12:1 7 PM LEAF BLENDER Oxygen Saturation 97% 10/14/2024 12: 17 PM LEAF BLENDER Inhaled Oxygen Concentration - - Weight 98.4 kg (216 lb 14.9 oz) 10/12/2024 2:30 PM LEAF BLENDER Height 182.9 cm (6') 10/03/2024 2:04 PM LEAF BLENDER Body Mass Index 29.42 10/03/2024 2:04 PM LEAF BLENDER Plan of Treatment Not on file Procedures Procedure Name Priority Date/Time Associated Diagnosis Comments HEPATIC FUNCTION PANEL Routine 8:12 PM LEAF BLENDER EGFR Routine 10/13/2024 8:12 PM LEAF BLENDER PROTIME-INR STAT 10/13/2024 8:12 PM LEAF BLENDER CBC WITHOUT DIFFERENTIAL Routine 10/13/2024 8:12 PM LEAF BLENDER BASIC METABOLIC PANEL Routine 10/13/2024 8:12 PM LEAF BLENDER PEP THERAPY Routine 10/13/2024 12:00 PM LEAF BLENDER US VEIN DUPLEX LOWER EXTREMITY BILATERAL COMPLETE IP Routine 10/13/2024 9:43 AM LEAF BLENDER APTT STAT 10/13/2024 6:24 AM LEAF BLENDER PEP THERAPY Routine 10/13/2024 6:01 AM LEAF BLENDER EGFR Routine 10/12/2024 9:40 PM LEAF BLENDER APTT Routine 10/12/2024 9:40 PM LEAF BLENDER CBC WITHOUT DIFFERENTIAL Routine 10/12/2024 9:40 PM LEAF BLENDER BASIC METABOLIC PANEL Routine 10/12/2024 9:40 PM LEAF BLENDER PEP THERAPY Routine 10/12/2024 6:00 PM LEAF BLENDER PEP THERAPY Routine 10/12/2024 12:00 PM LEAF BLENDER APTT STAT 10/12/2024 6:21 AM LEAF BLENDER PEP THERAPY Routine 10/12/2024 6:01 AM LEAF BLENDER APTT STAT 10/12/2024 12:54 AM LEAF BLENDER EGFR Routine 10/11/2024 9:52 PM LEAF BLENDER CBC WITHOUT DIFFERENTIAL Routine 10/11/2024 9:52 PM LEAF BLENDER BASIC METABOLIC PANEL Routine 10/11/2024 9:52 PM LEAF BLENDER PEP THERAPY Routine 10/11/2024 6:00 PM LEAF BLENDER APTT STAT 10/11/2024 5:30 PM LEAF BLENDER PEP THERAPY Routine 10/11/2024 12:00 PM LEAF BLENDER PEP THERAPY Routine 10/11/2024 6:01 AM LEAF BLENDER PEP THERAPY Routine 10/11/2024 12:00 AM LEAF BLENDER EGFR Routine 10/10/2024 8:04 PM LEAF BLENDER APTT STAT 10/10/2024 8:04 PM LEAF BLENDER PROTIME-INR STAT 10/10/2024 8:04 PM LEAF BLENDER APTT STAT 10/10/2024 8:04 PM LEAF BLENDER CBC WITHOUT DIFFERENTIAL Routine 10/10/2024 8:04 PM LEAF BLENDER BASIC METABOLIC PANEL Routine 10/10/2024 8:04 PM LEAF BLENDER PEP THERAPY Routine 10/10/2024 12:00 PM LEAF BLENDER CBC WITHOUT DIFFERENTIAL STAT 10/10/2024 11:51 AM LEAF BLENDER APTT STAT 10/10/2024 11:36 AM LEAF BLENDER PROTIME-INR STAT 10/10/2024 11:36 AM LEAF BLENDER PEP THERAPY Routine 10/10/2024 6:01 AM LEAF BLENDER EGFR Routine 10/10/2024 3:19 AM LEAF BLENDER CBC WITHOUT DIFFERENTIAL Routine 10/10/2024 3:19 AM LEAF BLENDER BASIC METABOLIC PANEL Routine 10/10/2024 3:19 AM LEAF BLENDER PEP THERAPY Routine 10/10/2024 12:00 AM LEAF BLENDER POCT GLUCOSE DEVICE Routine 10/09/2024 8 :41 PM LEAF BLENDER PEP THERAPY Routine 10/09/2024 6:00 PM LEAF BLENDER US VEIN DUPLEX LOWER EXTREMITY BILATERAL COMPLETE ED Urgent/IP Urgent 10/09/2024 10:08 AM LEAF BLENDER XR CHEST 1 VIEW IP Routine 10/09/2024 7:55 AM LEAF BLENDER PEP THERAPY Routine 10/09/2024 6:01 AM LEAF BLENDER PEP THERAPY Routine 10/09/2024 12:00 AM LEAF BLENDER EGFR Timed 10/08/2024 10:15 PM LEAF BLENDER PHOSPHORUS Timed 10/08/2024 10:15 PM LEAF BLENDER MAGNESIUM Timed 10/08/2024 10:15 PM LEAF BLENDER COMPREHENSIVE METABOLIC PANEL Timed 10/08/2024 10:15 PM LEAF BLENDER CBC WITHOUT DIFFERENTIAL Routine 10/08/2024 10:15 PM LEAF BLENDER PEP THERAPY Routine 10/08/2024 6:00 PM LEAF BLENDER PEP THERAPY Routine 10/08/2024 12:00 PM LEAF BLENDER TROPONIN I HIGH-SENSITIVITY STAT 10/08/2024 11:36 AM LEAF BLENDER LACTATE Timed 10/08/2024 8:38 AM LEAF BLENDER PEP THERAPY Routine 10/08/2024 6:00 AM LEAF BLENDER EGFR Routine 10/07/2024 10:19 PM LEAF BLENDER CBC WITHOUT DIFFERENTIAL Routine 10/07/2024 10:19 PM LEAF BLENDER BASIC METABOLIC PANEL Routine 10/07/2024 10:19 PM LEAF BLENDER LACTATE, WHOLE BLOOD Timed 10/07/2024 9:09 AM LEAF BLENDER URINALYSIS, MICROSCOPIC ONLY Routine 10/07/2024 5:37 AM LEAF BLENDER URINALYSIS AND REFLEX TO MICROSCOPIC AND CULTURE Routine 10/07/2024 5:37 AM LEAF BLENDER BLOOD CULTURE STAT 10/07/2024 5:37 AM LEAF BLENDER BLOOD CULTURE STAT 10/07/2024 5:37 AM LEAF BLENDER XR CHEST 1 VIEW IP Routine 10/07/2024 5:18 AM LEAF BLENDER PEP THERAPY Routine 10/07/2024 12:00 AM LEAF BLENDER LACTATE, WHOLE BLOOD Routine 10/06/2024 9:30 PM LEAF BLENDER EGFR Routine 10/06/2024 9:16 PM LEAF BLENDER CBC WITHOUT DIFFERENTIAL Routine 10/06/2024 9:16 PM LEAF BLENDER BASIC METABOLIC PANEL Routine 10/06/2024 9:16 PM LEAF BLENDER PEP THERAPY Routine 10/06/2024 6:00 PM LEAF BLENDER PEP THERAPY Routine 10/06/2024 12:00 PM LEAF BLENDER PEP THERAPY Routine 10/06/2024 6:01 AM LEAF BLENDER EGFR Routine 10/05/2024 10:43 PM LEAF BLENDER CBC WITHOUT DIFFERENTIAL Routine 10/05/2024 10:43 PM LEAF BLENDER LACTATE, WHOLE BLOOD Routine 10/05/2024 10:43 PM LEAF BLENDER BASIC METABOLIC PANEL Routine 10/05/2024 10:43 PM LEAF BLENDER PEP THERAPY Routine 10/05/2024 6:12 PM LEAF BLENDER PEP THERAPY Routine 10/05/2024 6:12 PM LEAF BLENDER EGFR Routine 10/04/2024 8:49 PM LEAF BLENDER DIFFERENTIAL AUTO Routine 10/04/2024 8:4 9 PM LEAF BLENDER LACTATE, WHOLE BLOOD Routine 10/04/2024 8:49 PM LEAF BLENDER CALCIUM,IONIZED, WHOLE BLOOD Routine 10/04/2024 8:49 PM LEAF BLENDER TROPONIN I HIGH-SENSITIVITY Routine 10/04/2024 8:49 PM LEAF BLENDER CBC WITH AUTO DIFFERENTIAL Routine 10/04/2024 8:49 PM LEAF BLENDER BASIC METABOLIC PANEL Routine 10/04/2024 8:49 PM LEAF BLENDER URINALYSIS, MICROSCOPIC ONLY STAT 10/04/2024 1:30 PM LEAF BLENDER URINALYSIS AND REFLEX TO MICROSCOPIC AND CULTURE STAT 10/04/2024 1:30 PM LEAF BLENDER LACTATE, WHOLE BLOOD STAT 10/04/2024 12:12 PM LEAF BLENDER TROPONIN I HIGH-SENSITIVITY 2-HOUR Timed 10/04/2024 12:06 PM LEAF BLENDER CRITICAL RESULT CALLBACK CHEMISTRY STAT 10/04/2024 9:06 AM LEAF BLENDER TROPONIN I HIGH-SENSITIVITY SERIES (BASELINE, 2HR, 4HR, 6HR) Routine 10/04/2024 9:06 AM LEAF BLENDER LACTATE STAT 10/04/2024 9:06 AM LEAF BLENDER INFLUENZA A/B, RSV, AND COVID-19 PCR Routine 10/04/2024 9:06 AM LEAF BLENDER EGFR Routine 10/03/2024 10:36 PM LEAF BLENDER BASIC METABOLIC PANEL Routine 10/03/2024 10:36 PM LEAF BLENDER DIFFERENTIAL AUTO Routine 10/03/2024 8:3 0 PM LEAF BLENDER CBC WITH AUTO DIFFERENTIAL Routine 10/03/2024 8:30 PM LEAF BLENDER EGFR STAT 10/03/2024 8:25 PM LEAF BLENDER BASIC METABOLIC PANEL STAT 10/03/2024 8:25 PM LEAF BLENDER ECG 12-LEAD Routine 10/03/2024 2:19 PM LEAF BLENDER POCT GLUCOSE DEVICE Routine 10/03/2024 2 :07 PM LEAF BLENDER EGFR Routine 10/03/2024 4:58 AM LEAF BLENDER DIFFERENTIAL AUTO Routine 10/03/2024 4:5 8 AM LEAF BLENDER BASIC METABOLIC PANEL Routine 10/03/2024 4:58 AM LEAF BLENDER CBC WITH AUTO DIFFERENTIAL Routine 10/03/2024 4:58 AM LEAF BLENDER XR CHEST 1 VIEW IP Routine 10/02/2024 9:08 PM LEAF BLENDER EGFR STAT 10/02/2024 4:01 PM LEAF BLENDER DIFFERENTIAL AUTO STAT 10/02/2024 4:0 1 PM LEAF BLENDER PROTIME-INR STAT 10/02/2024 4:01 PM LEAF BLENDER APTT STAT 10/02/2024 4:01 PM LEAF BLENDER CBC WITH AUTO DIFFERENTIAL STAT 10/02/2024 4:01 PM LEAF BLENDER PHOSPHORUS STAT 10/02/2024 4:01 PM LEAF BLENDER MAGNESIUM STAT 10/02/2024 4:01 PM LEAF BLENDER COMPREHENSIVE METABOLIC PANEL STAT 10/02/2024 4:01 PM LEAF BLENDER POC BLOOD GAS AND CHEMISTRIES, ARTERIAL Routine 10/02/2024 2:30 PM LEAF BLENDER FL FLUOROSCOPY < 1 HOUR IP Routine 10/02/2024 2:00 PM LEAF BLENDER SURGICAL PATHOLOGY Routine 10/02/2024 12 :15 PM LEAF BLENDER POC BLOOD GAS AND CHEMISTRIES, ARTERIAL Routine 10/02/2024 10:43 AM LEAF BLENDER ANESTHESIA ARTERIAL LINE PLACEMENT Routine 10/02/2024 8:32 AM LEAF BLENDER ANESTHESIA INTUBATION Routine 10/02/2024 8:31 AM LEAF BLENDER SPINAL CORD MONITORING 7:29 AM LEAF BLENDER Thoracic myelopathy Case Notes [email or web address] Celine via email add Dr. David HEBERT LAMINECTOMY THORACIC DECOMPRESSION 10/02/2024 7:29 AM LEAF BLENDER Thoracic myelopathy Case Notes [email or web address] Berger via email add Dr. David HEBERT FUSION SPINAL - POSTERIOR LUMBAR/THORACIC WITH INSTRUMENTATION 10/02/2024 7:29 AM LEAF BLENDER Thoracic myelopathy Case Notes [email or web address] Celine via email add Dr. David HEBERT TYPE AND SCREEN STAT 10/02/2024 6:18 AM LEAF BLENDER EGFR Routine 09/13/2024 11:37 AM CDT Thoracic [...] Months Results * eGFR (10/13/2024 8:12 PM LEAF BLENDER) [facility] eGFR 60 >=60 mL/min/1. 73 m2 Comment: [...] last reviewed 2021. Blood 10/13/2024 8:12 PM LEAF BLENDER 10/13/2024 8:37 PM LEAF BLENDER James Robles MD LAB BLOOD ORDERABLES Final Resu lt Performing Organization Address [place]/[facility] Co de Phone Number [facility] Department [place] [address] * Protime-INR (10/13/2024 8:12 PM LEAF BLENDER) Pathologist [facility] PT 11.5 9.7 - 13.0 sec INR 1.06 0.90 - 1.20 [facility] Comment: Interpretive data Oral anticoagulant therapeutic ranges: Venous thromboembolism prophylaxis or treatment: 2.0-3.0 CARDIOLOGY Standard range: 2.0-3.0 High-intensity range: 2.5-3.5 Refer to indication-specific guidelines for appropriate target ranges for prosthetic heart valve replacement. Current interpretive data was last revised on 2019. Blood 10/13/2024 8:12 PM LEAF BLENDER 10/13/2024 8:32 PM LEAF BLENDER Narrative [facility] - 10/13/2024 8:38 PM LEAF BLENDER Baseline prior to apixaban initiation. Meghan Whyte NP LAB BLOOD ORDERABLES Fin al Result Performing Organization Address [place]/[facility] Co de Phone Number [facility] Department [place] [address] * (ABNORMAL) CBC without differential (10/13/2024 8:12 PM LEAF BLENDER) [facility] WBC 17.1(H) 3.8 - 9.9 K/cumm Hgb [...] [facility] Blood 10/13/2024 8:12 PM LEAF BLENDER 10/13/2024 8:26 PM LEAF BLENDER Maria Isabel Unger NP LAB BLOOD ORDERABLES Final Result [facility] [place] [address] * (ABNORMAL) Hepatic function panel (10/13/2024 8:12 PM LEAF BLENDER) [facility] Bilirubin, total 0.2 0.1 - 1.2 mg/dL [...] be falsely elevated Blood 10/13/2024 8:12 PM LEAF BLENDER 10/13/2024 8:23 PM LEAF BLENDER James Robles MD LAB BLOOD ORDERABLES Final Resu lt [facility] Department [place] [address] * (ABNORMAL) Basic metabolic panel (10/13/2024 8:12 PM LEAF BLENDER) Pathologist [facility] Sodium 140 135 - 145 mmol/L Potassium, [...] [facility] Blood 10/13/2024 8:12 PM LEAF BLENDER 10/13/2024 8:23 PM LEAF BLENDER James Robles MD LAB BLOOD ORDERABLES Final Resu lt [facility] Department [place] [address] * US Vein Duplex Lower Extremity Bilateral Complete (10/13/2024 9:43 AM LEAF BLENDER) Anatomical Region Laterality Modality Vascular Bilateral Ultrasound 10/13/2024 9:05 AM LEAF BLENDER Narrative 10/13/2024 1:52 PM LEAF BLENDER [facility] - Department of Vascular Surgery, Vascular Laboratory [address] [place] [address] Lower Extremity Venous Ultrasound Report Patient Name: LILI DELGADO F : 1950 (74y ) Study Date: 10/13/2024 9:05:32 AM Gender: M Tech: Location: [id number] Ref Provider: MEGHAN WHYTE Quality: Adequate Order [...] thrombus size per hematology - FINDINGS: Performing Otc Clerk: Jessica Aguilar RVT. Right: Duplex scan reveals [...] Tyshawn Mullins MD FACS 10/13/2024 1:52:11 PM LEAF BLENDER Procedure Note Tyshawn Mullins MD - 10/13/2024 [facility] - Department of Vascular Surgery,Vascular Laboratory [address] [place] [address] Lower Extremity Venous Ultrasound Report Patient Name: LILI DELGADO F : 1950 (74y ) Study Date: 10/13/2024 9:05:32 AM Gender: M Tech: Location: [id number] Ref Provider: MEGHAN WHYTE Quality: Adequate Order [...] thrombus size per hematology - FINDINGS: Performing Otc Clerk: Jessica Aguilar RVT. Right: Duplex scan reveals [...] above. Electronically Signed By: Tyshawn Mullins MD [facility] 10/13/2024 1:52:11 PM LEAF BLENDER us Meghan Whyte NP IMG US PROCEDURES Final Result * (ABNORMAL) aPTT (10/13/2024 6:24 AM LEAF BLENDER) aPTT 55(H) 28 - 38 sec Comment: Interpretive Data Heparin therapeutic range: 66.0 - 100.0 seconds. Range based on correlation with therapeutic heparin activity range of 0.3 - 0.7 Units/mL. Current interpretive data was last revised on 2023. Blood 10/13/2024 6:24 AM LEAF BLENDER 10/13/2024 6:52 AM LEAF BLENDER Marco [facility] - 10/13/2024 7:17 AM LEAF BLENDER STAT PTT timing: - Draw 6 hours [...] ORDERABLES Final Resu lt Performing Organization Address City/[facility] Co de Phone Number [facility] [place] [address] * (ABNORMAL) eGFR (10/12/2024 9:40 PM LEAF BLENDER) eGFR 49(L) >=60 mL/min/1. 73 m2 Comment: [...] last reviewed 2021. Blood 10/12/2024 9:40 PM LEAF BLENDER 10/12/2024 11:24 PM LEAF BLENDER James Robles MD LAB BLOOD ORDERABLES Final Resu lt Performing Organization Address City/[facility]/ZIP Co de Phone Number [facility] [place] [address] * (ABNORMAL) aPTT (10/12/2024 9:40 PM LEAF BLENDER) [facility] aPTT 57(H) 28 - 38 sec Comment: Interpretive Data Heparin therapeutic range: 66.0 - 100.0 seconds. Range based on correlation with therapeutic heparin activity range of 0.3 - 0.7 Units/mL. Current interpretive data was last revised on 2023. Blood 10/12/2024 9:40 PM LEAF BLENDER 10/12/2024 11:26 PM LEAF BLENDER Meghan Whyte GREEN BUILDING ENGINEER LAB BLOOD ORDERABLES Fin al Result Performing Organization Address City/State/[facility] Co de Phone Number [facility] [place] [address] * (ABNORMAL) CBC without differential (10/12/2024 9:40 PM LEAF BLENDER) [facility] WBC 13.9(H) 3.8 - 9.9 K/cumm Hgb [...] [facility] Blood 10/12/2024 9:40 PM LEAF BLENDER 10/12/2024 11:24 PM LEAF BLENDER us Maria Isabel Unger NP LAB BLOOD ORDERABLES Final Result [facility] Department [place] [address] * (ABNORMAL) Basic metabolic panel (10/12/2024 9:40 PM LEAF BLENDER) [facility] Sodium 144 135 - 145 mmol/L Potassium, [...] [facility] Blood 10/12/2024 9:40 PM LEAF BLENDER 10/12/2024 11:24 PM LEAF BLENDER us James Robles MD LAB BLOOD ORDERABLES Final Resu lt [facility] Department [place] [address] * (ABNORMAL) aPTT (10/12/2024 6:21 AM LEAF BLENDER) aPTT 51(H) 28 - 38 sec Comment: Interpretive Data Heparin therapeutic range: 66.0 - 100.0 seconds. Range based on correlation with therapeutic heparin activity range of 0.3 - 0.7 Units/mL. Current interpretive data was last revised on 2023. Blood 10/12/2024 6:21 AM LEAF BLENDER 10/12/2024 6:49 AM LEAF BLENDER Narrative [facility] - 10/12/2024 6:56 AM LEAF BLENDER STAT PTT timing: - Draw 6 hours [...] ORDERABLES Final Resu lt RE[facility]NALDO MAHARAJ [facility] Department [place] [address] * (ABNORMAL) aPTT (10/12/2024 12:54 AM LEAF BLENDER) Pathologist [facility] aPTT 51(H) 28 - 38 sec Comment: Interpretive Data Heparin therapeutic range: 66.0 - 100.0 seconds. Range based on correlation with therapeutic heparin activity range of 0.3 - 0.7 Units/mL. Current interpretive data was last revised on 2023. Blood 10/12/2024 12:5 4 AM LEAF BLENDER 10/12/2024 1:09 AM LEAF BLENDER Narrative [facility] - 10/12/2024 1:17 AM LEAF BLENDER STAT PTT timing: - Draw 6 hours [...] LAB BLOOD ORDERABLES Final Resu lt [facility] [place] [address] * (ABNORMAL) eGFR (10/11/2024 9:52 PM LEAF BLENDER) [facility] Signature eGFR 42(L) >=60 mL/min/1. 73 m2 [...] last reviewed 2021. Blood 10/11/2024 9:52 PM LEAF BLENDER 10/11/2024 11:34 PM LEAF BLENDER us James Robles MD LAB BLOOD ORDERABLES Final Resu lt [facility] [place] [address] * (ABNORMAL) CBC without differential (10/11/2024 9:52 PM LEAF BLENDER) WBC 15.3(H) 3.8 - 9.9 K/cumm Hgb [...] [facility] Blood 10/11/2024 9:52 PM LEAF BLENDER 10/11/2024 11:34 PM LEAF BLENDER us Maria Isabel Unger NP LAB BLOOD ORDERABLES Final Result Performing Organization Address City/[facility]/ZIP Co de Phone Number [facility] [place], [place] [id number] * (ABNORMAL) Basic metabolic panel (10/11/2024 9:52 PM LEAF BLENDER) Sodium 141 135 - 145 mmol/L Potassium, [...] [facility] Blood 10/11/2024 9:52 PM LEAF BLENDER 10/11/2024 11:34 PM LEAF BLENDER us James Robles MD LAB BLOOD ORDERABLES Final Resu lt [facility] Department [place] [address] * aPTT (10/11/2024 5:30 PM LEAF BLENDER) aPTT 33 28 - 38 sec Comment: Interpretive Data Heparin therapeutic range: 66.0 - 100.0 seconds. Range based on correlation with therapeutic heparin activity range of 0.3 - 0.7 Units/mL. Current interpretive data was last revised on 2023. Blood 10/11/2024 5:30 PM LEAF BLENDER 10/11/2024 5:59 PM LEAF BLENDER Narrative [facility] - 10/11/2024 6:07 PM LEAF BLENDER STAT PTT timing: - Draw 6 hours [...] LAB BLOOD ORDERABLES Final Resu lt [facility] [place] [address] * (ABNORMAL) eGFR (10/10/2024 8:04 PM LEAF BLENDER) eGFR 45(L) >=60 mL/min/1. 73 m2 Comment: [...] last reviewed 2021. Blood 10/10/2024 8:04 PM LEAF BLENDER 10/10/2024 8:34 PM LEAF BLENDER Result [facility] James Robles MD LAB BLOOD ORDERABLES Final Resu lt Performing Organization Address [place]/[facility] [place] [address] * (ABNORMAL) aPTT (10/10/2024 8:04 PM LEAF BLENDER) aPTT 22(L) 28 - 38 sec Comment: Interpretive Data Heparin therapeutic range: 66.0 - 100.0 seconds. Range based on correlation with therapeutic heparin activity range of 0.3 - 0.7 Units/mL. Current interpretive data was last revised on 2023. Blood 10/10/2024 8:04 PM LEAF BLENDER 10/10/2024 8:24 PM LEAF BLENDER Result [facility] James Robles MD LAB BLOOD ORDERABLES Final Resu Performing Organization Address [place]/[facility] [place] [address] * (ABNORMAL) aPTT (10/10/2024 8:04 PM LEAF BLENDER) aPTT 22(L) 28 - 38 sec Comment: Interpretive Data Heparin therapeutic range: 66.0 - 100.0 seconds. Range based on correlation with therapeutic heparin activity range of 0.3 - 0.7 Units/mL. Current interpretive data was last revised on 2023. Blood 10/10/2024 8:04 PM LEAF BLENDER 10/10/2024 8:24 PM LEAF BLENDER Narrative [facility] - 10/10/2024 8:33 PM LEAF BLENDER STAT PTT timing: - Draw 6 hours [...] James Robles MD LAB BLOOD ORDERABLES [facility] Per[facility] Organization Address [place]/[facility] de Phone Number [facility] [place] [address] * Protime-INR (10/10/2024 8:04 PM LEAF BLENDER) Pathologist [facility] PT 12.0 9.7 - 13.0 sec INR 1.11 0.90 - 1.20 [facility] Comment: Interpretive data Oral anticoagulant therapeutic ranges: Venous thromboembolism prophylaxis or treatment: 2.0-3.0 CARDIOLOGY Standard range: 2.0-3.0 High-intensity range: 2.5-3.5 Refer to indication-specific guidelines for appropriate target ranges for prosthetic heart valve replacement. Current interpretive data was last revised on 2019. Blood 10/10/2024 8:04 PM LEAF BLENDER 10/10/2024 8:24 PM LEAF BLENDER James Robles MD LAB BLOOD ORDERABLES Final Resu Performing Organization Address [place]/[facility] Co de Phone Number [facility] [place] [address] * (ABNORMAL) CBC without differential (10/10/2024 8:04 PM LEAF BLENDER) WBC 17.1(H) 3.8 - 9.9 K/cumm Hgb [...] [facility] Blood 10/10/2024 8:04 PM LEAF BLENDER 10/10/2024 8:34 PM LEAF BLENDER Maria Isabel Unger NP LAB BLOOD ORDERABLES Final Result [facility] [place] [address] * (ABNORMAL) Basic metabolic panel (10/10/2024 8:04 PM LEAF BLENDER) Sodium 140 135 - 145 mmol/L Potassium, [...] [facility] Blood 10/10/2024 8:04 PM LEAF BLENDER 10/10/2024 8:34 PM LEAF BLENDER us James Robles MD LAB BLOOD ORDERABLES Final Resu lt [facility] [place] [address] * (ABNORMAL) CBC without differential (10/10/2024 11:51 AM LEAF BLENDER) WBC 21.0(H) 3.8 - 9.9 K/cumm Hgb [...] [facility] Blood 10/10/2024 11:5 1 AM LEAF BLENDER 10/10/2024 12:26 PM LEAF BLENDER Narrative [facility] - 10/10/2024 12:37 PM LEAF BLENDER Baseline prior to heparin initiation James Robles MD LAB BLOOD ORDERABLES Final Resu lt Performing Organization Address [place]/[facility] Co de Phone Number [facility] [place] [place] [address] * (ABNORMAL) aPTT (10/10/2024 11:36 AM LEAF BLENDER) aPTT 23(L) 28 - 38 sec Comment: Interpretive Data Heparin therapeutic range: 66.0 - 100.0 seconds. Range based on correlation with therapeutic heparin activity range of 0.3 - 0.7 Units/mL. Current interpretive data was last revised on 2023. Blood 10/10/2024 11:3 6 AM LEAF BLENDER 10/10/2024 11:47 AM LEAF BLENDER Narrative [facility] - 10/10/2024 12:16 PM LEAF BLENDER Baseline prior to heparin initiation Result [facility] James Robles MD LAB BLOOD ORDERABLES Final Resu lt Performing Organization Address [place]/[facility] [place] [address] * Protime-INR (10/10/2024 11:36 AM LEAF BLENDER) PT 11.3 9.7 - 13.0 sec INR 1.05 0.90 - 1.20 [facility] Comment: Interpretive data Oral anticoagulant therapeutic ranges: Venous thromboembolism prophylaxis or treatment: 2.0-3.0 CARDIOLOGY Standard range: 2.0-3.0 High-intensity range: 2.5-3.5 Refer to indication-specific guidelines for appropriate target ranges for prosthetic heart valve replacement. Current interpretive data was last revised on 2019. Blood 10/10/2024 11:3 6 AM LEAF BLENDER 10/10/2024 11:47 AM LEAF BLENDER Narrative [facility] - 10/10/2024 12:16 PM LEAF BLENDER Baseline prior to heparin initiation James Robles MD LAB BLOOD ORDERABLES Final Resu lt Performing Organization Address City/[facility]/ZIP Co de Phone Number REYNALDO MAHARAJ [facility] [place] [address] * (ABNORMAL) eGFR (10/10/2024 3:19 AM LEAF BLENDER) eGFR 53(L) >=60 mL/min/1. 73 m2 Comment: [...] last reviewed 2021. Blood 10/10/2024 3:19 AM LEAF BLENDER 10/10/2024 5:57 AM LEAF BLENDER James Robles MD LAB BLOOD ORDERABLES Final Resu lt Performing Organization Address City/[facility]/ZIP Co de Phone Number REYNALDO MAHARAJ [facility] Department [place] [address] * (ABNORMAL) CBC without differential (10/10/2024 3:19 AM LEAF BLENDER) [facility] WBC 18.6(H) 3.8 - 9.9 K/cumm Hgb [...] [facility] Blood 10/10/2024 3:19 AM LEAF BLENDER 10/10/2024 6:01 AM LEAF BLENDER Maria Isabel Unger NP LAB BLOOD ORDERABLES Final Result [facility] Department [place] [address] * (ABNORMAL) Basic metabolic panel (10/10/2024 3:19 AM LEAF BLENDER) [facility] Sodium 141 135 - 145 mmol/L Potassium, [...] [facility] Blood 10/10/2024 3:19 AM LEAF BLENDER 10/10/2024 5:57 AM LEAF BLENDER James Robles MD LAB BLOOD ORDERABLES Final Resu lt Performing Organization Address [place]/[facility] Co de Phone Number [facility] [place] [address] * POCT glucose (10/09/2024 8:41 PM LEAF BLENDER) Glucose, POC 141 70 - 199 mg/dL Blood 10/09/2024 8:41 PM LEAF BLENDER 10/09/2024 8:41 PM LEAF BLENDER James Robles MD LAB POCT ORDERABLES - DEVICE Fi nal Result Performing Organization Address [place]/[facility] Co de Phone Number [facility] [place] [address] * US Vein Duplex Lower Extremity Bilateral Complete (10/09/2024 10:08 AM LEAF BLENDER) Anatomical Region Laterality Modality Vascular Bilateral Ultrasound 10/09/2024 9:49 AM LEAF BLENDER Narrative 10/09/2024 11:51 AM LEAF BLENDER [facility] [employer] [facility] - Department of Vascular Surgery, Vascular Laboratory [address] [place] [id number] Lower Extremity Venous Ultrasound Report Patient Name: LILI DELGADO F : 1950 (74y ) Study Date: 10/09/2024 9:49:45 AM Gender: M Tech: AL Location: [id number] Ref Provider: OSIRIS OLIVEIRA ?Quality: Adequate Order [...] Pain in Leg, Right - FINDINGS: Performing Otc Clerk: Niurka Krishna RVT. Right: Duplex scan reveals [...] on the above date to Osiris Oliveira GREEN BUILDING ENGINEER at 10:06 am. CONCLUSIONS: 1. There is [...] above. Electronically Signed By: Tyshawn Mullins MD [facility] 2024-10-09 11:50:17 LEAF BLENDER Procedure Note Tyshawn Mullins MD - 10/09/2024 [facility] - Department of Vascular Surgery,Vascular Laboratory [address] [place] [address] Lower Extremity Venous Ultrasound Report Patient Name: LILI DELGADO F : 1950 (74y ) Study Date: 10/09/2024 9:49:45 AM Gender: M Tech: AL Location: [id number] Ref Provider: OSIRIS OLIVEIRA Quality: Adequate Order [...] Pain in Leg, Right - FINDINGS: Performing Otc Clerk: Niurka Krishna RVT. Right: Duplex scan reveals [...] on the above date to Osiris Oliveira GREEN BUILDING ENGINEER at 10:06 am. CONCLUSIONS: 1. There is [...] above. Electronically Signed By: Tyshawn Mullins MD [facility] 2024-10-09 11:50:17 LEAF BLENDER Osiris Oliveira NP IMG US PROCEDURES Final Result * XR Chest 1 View (10/09/2024 7:55 AM LEAF BLENDER) Anatomical Region Laterality Modality Body, Chest N/A Digital Radiogra phy 10/09/2024 1:25 PM LEAF BLENDER Impressions 10/09/2024 4:11 PM LEAF BLENDER 1. ??Interval increase in left lung base atelectasis. Dictated by: Gabriel Warner M.D. The radiology attending physician has personally reviewed this study, and had reviewed and/or edited this written report and agrees with it. Electronically signed by: Austin Olsen M.D. Narrative 10/09/2024 4:11 PM LEAF BLENDER EXAMINATION: 1 view chest radiograph History: 74-year-old [...] Result * (ABNORMAL) eGFR (10/08/2024 10:15 PM LEAF BLENDER) Pathologist [facility] [place] eGFR 55(L) >=60 mL/min/1. 73 m2 Comment: [...] reviewed 2021. Blood 10/08/2024 10:1 5 PM LEAF BLENDER 10/08/2024 11:56 PM LEAF BLENDER us Brianna Martínez GREEN BUILDING ENGINEER LAB BLOOD ORDERABLES Cammy ramos Result [facility] Department [place] [address] * (ABNORMAL) CBC without differential (10/08/2024 10:15 PM LEAF BLENDER) Pathologist [facility] WBC 19.8(H) 3.8 - 9.9 K/cumm Hgb 11.2(L) 13.0 - 17.5 g/dL [facility] Hct 32.9(L) 38.9 - 50.3 % [facility] [...] [facility] Blood 10/08/2024 10:1 5 PM LEAF BLENDER 10/08/2024 11:57 PM LEAF BLENDER Maria Isabel Unger GREEN BUILDING ENGINEER LAB BLOOD ORDERABLES Final Result Performing Organization Address City/[facility]/ZIP Co de Phone Number [facility] Department [place] [address] * Phosphorus (10/08/2024 10:15 PM LEAF BLENDER) Pathologist [facility] Phosphorus, pl 3.1 2.3 - 4.5 mg/dL Blood 10/08/2024 10:1 5 PM LEAF BLENDER 10/08/2024 11:56 PM LEAF BLENDER Brianna Martínez GREEN BUILDING ENGINEER LAB BLOOD ORDERABLES Cammy l Result [facility] [place] [address] * Magnesium (10/08/2024 10:15 PM LEAF BLENDER) [facility] Magnesium 2.3 1.4 - 2.5 mg/dL Blood 10/08/2024 10:1 5 PM LEAF BLENDER 10/08/2024 11:56 PM LEAF BLENDER us Brianna Barraza Mauricio GREEN BUILDING ENGINEER LAB BLOOD ORDERABLES Cammy ramos Result [facility] Department [place] [address] * (ABNORMAL) Comprehensive metabolic panel (10/08/2024 10:15 PM LEAF BLENDER) Sodium 141 135 - 145 mmol/L Potassium, pl 4.6 3.3 - 4.9 mmol/L [facility] Chloride 107 97 - 110 mmol/L [facility] CO2 25 22 - 32 mmol/L [facility] Anion gap 9 2 - 15 [...] 2022. Calcium 8.6 8.5 - 10.3 mg/dL [facility] Bilirubin, total 0.3 0.1 - 1.2 mg/dL [facility] Protein, pl 4.8(L) 6.5 - 8.5 g/dL [facility] Albumin 2.9(L) 3.5 - 5.0 g/dL [facility] Alk phos 49 40 - 130 Units/L [facility] ALT 39 7 - 55 Units/L [facility] AST 19 10 - 50 Units/L [facility] Blood 10/08/2024 10:1 5 PM LEAF BLENDER 10/08/2024 11:56 PM LEAF BLENDER Brianna Christibrittany Martínez GREEN BUILDING ENGINEER LAB BLOOD ORDERABLES Cammy l Result Performing Organization Address [place]/[facility] de Phone Number REYNALDO [facility] Department [place] [address] * Troponin I high-sensitivity (10/08/2024 11:36 AM LEAF BLENDER) Pathologist [facility] Trop I hs 30 <=35 ng/L Comment: Interpretive Data For further hscTnI resources including the diagnostic algorithm and an aid in interpretation, copy and paste this link: https://bjhlab.testcatalog.org/show/hsTrop-[email or web address] Current Interpretive Data last revised 2020. Blood 10/08/2024 11:3 6 AM LEAF BLENDER 10/08/2024 11:44 AM LEAF BLENDER us Brianna Martínez GREEN BUILDING ENGINEER LAB BLOOD ORDERABLES Cammy l Result Performing Organization Address [place]/[facility] Co de Phone Number RE[facility] Department [place] [address] * (ABNORMAL) Lactate (10/08/2024 8:38 AM LEAF BLENDER) [facility] Lactate 2.9(H) 0.7 - 2.0 mmol/L Blood 10/08/2024 8:38 AM LEAF BLENDER 10/08/2024 11:44 AM LEAF BLENDER Brianna Christibrittany Martínez GREEN BUILDING ENGINEER LAB BLOOD ORDERABLES Cammy l Result Performing Organization Address [place]/[facility] de Phone Number REYNALDO [facility] [place] [address] * eGFR (10/07/2024 10:19 PM LEAF BLENDER) [facility] eGFR 62 >=60 mL/min/1. 73 m2 Comment: [...] reviewed 2021. Blood 10/07/2024 10:1 9 PM LEAF BLENDER 10/07/2024 11:24 PM LEAF BLENDER us James Robles MD LAB BLOOD ORDERABLES Final Resu lt [facility] [place] [address] * (ABNORMAL) CBC without differential (10/07/2024 10:19 PM LEAF BLENDER) WBC 17.2(H) 3.8 - 9.9 K/cumm Hgb [...] [facility] Blood 10/07/2024 10:1 9 PM LEAF BLENDER 10/07/2024 11:24 PM LEAF BLENDER Maria Isabel Unger NP LAB BLOOD ORDERABLES Final Result [facility] Department [place] [address] * (ABNORMAL) Basic metabolic panel (10/07/2024 10:19 PM LEAF BLENDER) Sodium 142 135 - 145 mmol/L Potassium, [...] [facility] Blood 10/07/2024 10:1 9 PM LEAF BLENDER 10/07/2024 11:24 PM LEAF BLENDER us James Robles MD LAB BLOOD ORDERABLES Final Resu lt [facility] [place] [address] * (ABNORMAL) Lactate, whole blood (10/07/2024 9:09 AM LEAF BLENDER) Lactate, bld 3.4(H) 0.7 - 2.0 mmol/L Blood 10/07/2024 9:09 AM LEAF BLENDER 10/07/2024 9:15 AM LEAF BLENDER us Brianna Martínez NP LAB BLOOD ORDERABLES Cammy l Result Performing Organization Address [place]/[facility] Co de Phone Number [facility] [place] [address] * (ABNORMAL) Urinalysis reflex to microscopic and culture Urine (10/07/2024 5:37 AM LEAF BLENDER) Color, ur Straw Yellow Clarity, ur Clear [...] for uric acid stone formation. Source: [facility] [employer] Current Interpretive Data was last revised on [...] [facility] Nitrite, ur Negative Negative [facility] Leukocyte esterase, ur Negative Negative [facility] UA reflex comment Reflex to microscopic UA will be performed. [facility] Urine 10/07/2024 5:37 AM LEAF BLENDER 10/07/2024 5:46 AM LEAF BLENDER James Robles MD LAB MICROBIOLOGY - GENERAL [place] JEFFERY Final Result [facility] [place] [address] * Blood culture Blood (10/07/2024 5:37 AM LEAF BLENDER) Report Final Report: No growth Blood 10/07/2024 5:37 AM LEAF BLENDER 10/07/2024 7:00 AM LEAF BLENDER Narrative [facility] - 10/11/2024 7:00 AM LEAF BLENDER Collection->Peripheral 1. ?Blood cultures are incubated for [...] organism identification may be performed using the Bizzukaigene Gram-Positive Blood Culture Assay. This assay detects microbial DNA in positive blood culture broth via hybridization of target DNA to capture oligonucleotides on a microarray. This assay has been cleared by the [place] Food and Drug Administration and its performance characteristics have been verified by the [facility] Microbiology Laboratory. 5. ?For questions about this culture, contact the Microbiology Laboratory at [phone]. Interpretive data was last revised on 2020. James Robles MD LAB MICROBIOLOGY - GENERAL ORDMariano BANKSBECCA Final Result Performing Organization Address [place]/[facility] Co de Phone Number REYNALDO MAHARAJ [facility] Department [place] [address] * Blood culture Blood (10/07/2024 5:37 AM LEAF BLENDER) Report Final Report: No growth Blood 10/07/2024 5:37 AM LEAF BLENDER 10/07/2024 6:07 AM LEAF BLENDER Narrative RE[facility]LDO [facility] - 10/11/2024 7:00 AM LEAF BLENDER Collection->Peripheral 1. ?Blood cultures are incubated for [...] organism identification may be performed using the Bizzukaigene Gram-Positive Blood Culture Assay. This assay detects microbial DNA in positive blood culture broth via hybridization of target DNA to capture oligonucleotides on a microarray. This assay has been cleared by the [place] Food and Drug Administration and its performance characteristics have been verified by the [facility] Microbiology Laboratory. 5. ?For questions about this culture, contact the Microbiology Laboratory at [phone]. Interpretive data was last revised on 2020. James Robles MD LAB MICROBIOLOGY - GENERAL [place] JEFFERY Final Result Performing Organization Address City/[facility] Co de Phone Number [facility] Department [place] [address] * (ABNORMAL) Urinalysis, microscopic only (10/07/2024 5:37 AM LEAF BLENDER) WBC, ur 0-5 0 - 5 /HPF RBC, ur 11-20(A) 0 - 2 /HPF [facility] Mucous, ur Present(A) [facility] Culture Reflex Comment Reflex conditions for urine culture (WBC >10) not met. [facility] Urine 10/07/2024 5:37 AM LEAF BLENDER 10/07/2024 5:46 AM LEAF BLENDER us James Robles MD LAB URINE ORDERABLES Final Resu lt [facility] [place] [address] * XR Chest 1 View (10/07/2024 5:18 AM LEAF BLENDER) Anatomical Region Laterality Modality Body, Chest N/A Computed Radiogr aphy 10/07/2024 7:05 AM LEAF BLENDER Impressions 10/07/2024 7:05 AM LEAF BLENDER The current study is compared with the prior radiograph dated ??10/02/2024. ??Spine stimulator is present. ??The heart and mediastinal contours are normal. ??There is no mass or consolidation. There is no lymphadenopathy. ??There are no pleural effusions. ??There is no pneumothorax. There is no interval change. Electronically signed by: Lauren Cantrell M.D. Narrative 10/07/2024 7:05 AM LEAF BLENDER EXAMINATION: 1 view chest radiograph Procedure Note [...] (ABNORMAL) Lactate, whole blood (10/06/2024 9:30 PM LEAF BLENDER) Lactate, bld 2.7(H) 0.7 - 2.0 mmol/L Blood 10/06/2024 9:30 PM LEAF BLENDER 10/06/2024 9:30 PM LEAF BLENDER us Tamanna Porras GREEN BUILDING ENGINEER LAB BLOOD ORDERABLES Final Resul t [facility] Department [place] [address] * eGFR (10/06/2024 9:16 PM LEAF BLENDER) eGFR 61 >=60 mL/min/1. 73 m2 Comment: [...] last reviewed 2021. Blood 10/06/2024 9:16 PM LEAF BLENDER 10/06/2024 9:34 PM LEAF BLENDER us James Robles MD LAB BLOOD ORDERABLES Final Resu lt Performing Organization Address City/[facility]/ZIP Co de Phone Number [facility] Department [place] [address] * (ABNORMAL) CBC without differential (10/06/2024 9:16 PM LEAF BLENDER) WBC 17.1(H) 3.8 - 9.9 K/cumm Hgb [...] [facility] Blood 10/06/2024 9:16 PM LEAF BLENDER 10/06/2024 9:34 PM LEAF BLENDER us Maria Isabel Unger NP LAB BLOOD ORDERABLES Final Result Performing Organization Address City/[facility]/ZIP Co de Phone Number [facility] Department [place] [address] * (ABNORMAL) Basic metabolic panel (10/06/2024 9:16 PM LEAF BLENDER) Pathologist [facility] Sodium 140 135 - 145 mmol/L Potassium, [...] 2022. Calcium 8.7 8.5 - 10.3 mg/dL [facility] Blood 10/06/2024 9:16 PM LEAF BLENDER 10/06/2024 9:34 PM LEAF BLENDER us James Robles MD LAB BLOOD ORDERABLES Final Resu lt [facility] [place] [address] * eGFR (10/05/2024 10:43 PM LEAF BLENDER) Pathologist [facility] eGFR 67 >=60 mL/min/1. 73 m2 Comment: [...] reviewed 2021. Blood 10/05/2024 10:4 3 PM LEAF BLENDER 10/05/2024 11:10 PM LEAF BLENDER us James Robles MD LAB BLOOD ORDERABLES Final Resu lt [facility] [place] [address] * (ABNORMAL) Lactate, whole blood (10/05/2024 10:43 PM LEAF BLENDER) Lactate, bld 2.2(H) 0.7 - 2.0 mmol/L Blood 10/05/2024 10:4 3 PM LEAF BLENDER 10/05/2024 11:07 PM LEAF BLENDER us Tamanna Porras NP LAB BLOOD ORDERABLES Final [facility]ul [facility] [place] [address] * (ABNORMAL) CBC without differential (10/05/2024 10:43 PM LEAF BLENDER) WBC 16.5(H) 3.8 - 9.9 K/cumm Hgb [...] [facility] Blood 10/05/2024 10:4 3 PM LEAF BLENDER 10/05/2024 11:11 PM LEAF BLENDER us Maria Isabel Unger NP LAB BLOOD ORDERABLES Final Result [facility] Department [place] [address] * (ABNORMAL) Basic metabolic panel (10/05/2024 10:43 PM LEAF BLENDER) Sodium 143 135 - 145 mmol/L Potassium, [...] [facility] Blood 10/05/2024 10:4 3 PM LEAF BLENDER 10/05/2024 11:10 PM LEAF BLENDER James Robles MD LAB BLOOD ORDERABLES Final Resu lt Performing Organization Address City/[facility]/ZIP Co de Phone Number [facility] Department [place] [address] * (ABNORMAL) Troponin I high-sensitivity (10/04/2024 8:49 PM LEAF BLENDER) Pathologist [facility] Trop I hs 128(H) <=35 ng/L Comment: Interpretive Data For further hscTnI resources including the diagnostic algorithm and an aid in interpretation, copy and paste this link: https://bjhlab.testcatalog.org/show/hsTrop-[email or web address] Current Interpretive Data last revised 2020. Blood 10/04/2024 8:49 PM LEAF BLENDER 10/04/2024 9:06 PM LEAF BLENDER us Tamanna Porras NP LAB BLOOD ORDERABLES Final Resul t Performing Organization Address [place]/[facility]/ZIP Co de Phone Number [facility] Department [place] [address] * Calcium, ionized, whole blood (10/04/2024 8:49 PM LEAF BLENDER) Ca, ionized, bld 5.10 4.50 - 5.10 mg/dL Blood 10/04/2024 8:49 PM LEAF BLENDER 10/04/2024 9:00 PM LEAF BLENDER us Tamanna Porras GREEN BUILDING ENGINEER LAB BLOOD ORDERABLES Final Resul t Performing Organization Address City/[facility] Co de Phone Number REYNALDO MAHARAJ [facility] Department [place] [address] * (ABNORMAL) eGFR (10/04/2024 8:49 PM LEAF BLENDER) eGFR 57(L) >=60 mL/min/1. 73 m2 Comment: [...] last reviewed 2021. Blood 10/04/2024 8:49 PM LEAF BLENDER 10/04/2024 9:06 PM LEAF BLENDER us James Robles MD LAB BLOOD ORDERABLES Final Resu lt Performing Organization Address [place]/[facility]/ZIP Co de Phone Number REYNALDO MAHARAJ [facility] Department [place] [address] * (ABNORMAL) Differential, auto (10/04/2024 8:49 PM LEAF BLENDER) Neutrophil abs 20.1(H) 1.5 - 6.5 K/cumm Imm gran abs 0.3(H) 0.0 - 0.1 K/cumm [facility] Lymphocyte abs 1.2 0.8 - 3.3 K/cumm [facility] Monocyte abs 1.4(H) 0.2 - 0.8 K/cumm [facility] Eosinophil abs 0.0 0.0 - 0.5 K/cumm [facility] Basophil abs 0.0 0.0 - 0.1 K/cumm [facility] Neutrophil pct 87.4 % [facility] Comment: Consistent with previous result Interpretive [...] on 2018. Lymphocyte pct 5.2 % [facility] Comment: Interpretive Data Percent cell count reference ranges are not reported, since discordance with absolute values may lead to misinterpretation of CBC data. Current Interpretive Data was last revised on 2018. Monocyte pct 6.0 % [facility] Comment: Interpretive Data Percent cell count reference ranges are not reported, since discordance with absolute values may lead to misinterpretation of CBC data. Current Interpretive Data was last revised on 2018. Eosinophil pct 0.0 % [facility] Comment: Interpretive Data Percent cell count reference ranges are not reported, since discordance with absolute values may lead to misinterpretation of CBC data. Current Interpretive Data was last revised on 2018. Basophil pct 0.1 % [facility] Comment: Interpretive Data Percent cell count reference ranges are not reported, since discordance with absolute values may lead to misinterpretation of CBC data. Current Interpretive Data was last revised on 2018. Blood 10/04/2024 8:49 PM LEAF BLENDER 10/04/2024 9:06 PM LEAF BLENDER James Robles MD LAB BLOOD ORDERABLES Final Resu lt [facility] Department [place] [address] * (ABNORMAL) CBC with auto differential (10/04/2024 8:49 PM LEAF BLENDER) Pathologist [facility] WBC 23.0(H) 3.8 - 9.9 K/cumm Hgb [...] [facility] Blood 10/04/2024 8:49 PM LEAF BLENDER 10/04/2024 9:06 PM LEAF BLENDER James Robles MD LAB BLOOD ORDERABLES Final Resu lt [facility] [place] [address] * (ABNORMAL) Lactate, whole blood (10/04/2024 8:49 PM LEAF BLENDER) Lactate, bld 2.5(H) 0.7 - 2.0 mmol/L Blood 10/04/2024 8:49 PM LEAF BLENDER 10/04/2024 9:00 PM LEAF BLENDER us Tamanna Porras NP LAB BLOOD ORDERABLES Final Resul t Performing Organization Address City/[facility]/ZIP Co de Phone Number [facility] Department [place] [address] * (ABNORMAL) Basic metabolic panel (10/04/2024 8:49 PM LEAF BLENDER) Pathologist [facility] Sodium 144 135 - 145 mmol/L Potassium, [...] [facility] Blood 10/04/2024 8:49 PM LEAF BLENDER 10/04/2024 9:06 PM LEAF BLENDER us James Robles MD LAB BLOOD ORDERABLES Final Resu lt Performing Organization Address [place]/[facility] Co de Phone Number [facility] Department [place] [address] * (ABNORMAL) Urinalysis reflex to microscopic and culture Urine (10/04/2024 1:30 PM LEAF BLENDER) Color, ur Straw Yellow Clarity, ur Clear [...] for uric acid stone formation. Source: [facility] [employer] Current Interpretive Data was last revised on [...] [facility] Urine 10/04/2024 1:30 PM LEAF BLENDER 10/04/2024 4:16 PM LEAF BLENDER us Tamanna Porras NP LAB MICROBIOLOGY - GENERAL ORDER TALYA Final Result [facility] [place] [address] * (ABNORMAL) Urinalysis, microscopic only (10/04/2024 1:30 PM LEAF BLENDER) WBC, ur 0-5 0 - 5 /HPF RBC, ur >50(A) 0 - 2 /HPF [facility] Epithelial cells, squamous, ur 1-5 0 - 5 /HPF [facility] Mucous, ur Present(A) [facility] Culture Reflex Comment Reflex conditions for urine culture (WBC >10) not met. [facility] Urine 10/04/2024 1:30 PM LEAF BLENDER 10/04/2024 4:15 PM LEAF BLENDER Tamanna Porras GREEN BUILDING ENGINEER LAB URINE ORDERABLES Final Resul t Performing Organization Address City/[facility] Co de Phone Number [facility] [place] [address] * (ABNORMAL) Lactate, whole blood (10/04/2024 12:12 PM LEAF BLENDER) Lactate, bld 3.7(H) 0.7 - 2.0 mmol/L Blood 10/04/2024 12:1 2 PM LEAF BLENDER 10/04/2024 12:22 PM LEAF BLENDER Tamanna Porras GREEN BUILDING ENGINEER LAB BLOOD ORDERABLES Final Resul t Performing Organization Address [facility] [place] [address] * (ABNORMAL) Troponin I high-sensitivity 2-hour (10/04/2024 12:06 PM LEAF BLENDER) Pathologist [facility] Trop I hs 132(H) <=35 ng/L Comment: Interpretive Data For further [facility] resources including the diagnostic algorithm and an aid in interpretation, copy and paste this link: https://bjhlab.testcatalog.org/show/hsTrop-1 Current Interpretive Data last revised 2020. Trop I hs pct delta -9 % [facility] Trop I hs interp Equivocal [facility] Blood 10/04/2024 12:0 6 PM LEAF BLENDER 10/04/2024 12:30 PM LEAF BLENDER Geraldine Leary GREEN BUILDING ENGINEER LAB BLOOD ORDERABLES Final Result Performing Organization Address [place]/[facility] [place] [address] * Influenza A/B, RSV, and COVID-19 PCR Nasopharyngeal (10/04/2024 9:06 AM LEAF BLENDER) Pathologist [facility] COVID-19 RNA Negative Negative [facility] Influenza A RNA Negative Negative [facility] Influenza B RNA Negative Negative [facility] RSV RNA Negative Negative [facility] Comment: Interpretive data: Testing performed by [facility] ([phone]). This test is performed using the [employer] Xpert Xpress CoV-2/Flu/RSV plus assay. This is a multiplex, real-time reverse transcriptase PCR assay intended for the qualitative detection of nucleic acid from SARS-CoV-2, influenza A, influenza B, and respiratory syncytial virus. This assay has been cleared by the [place] Food and Drug administration. The performance characteristics have been verified by the [facility]. ??Results must be considered in the clinical context, and a negative result does not rule out infection. Interpretive Data last revised 2023 Nasopharyngeal 10/04/2024 9: 06 AM LEAF BLENDER 10/04/2024 10:22 AM LEAF BLENDER Narrative [facility] - 10/04/2024 11:17 AM LEAF BLENDER Is the Patient experiencing symptoms consistent with COVID?->Unknown Geraldine Leary GREEN BUILDING ENGINEER LAB MICROBIOLOGY - [facility] ORDERABLES Final Result [facility] [place] [address] [facility] * (ABNORMAL) Troponin I high-sensitivity series (baseline, 2hr, 4hr, 6hr) (10/04/2024 9:06 AM LEAF BLENDER) Pathologist [facility] Trop I hs 145(H) <=35 ng/L Comment: Interpretive Data For further hscTnI resources including the diagnostic algorithm and an aid in interpretation, copy and paste this link: https://bjhlab.testcatalog.org/show/hsTrop-1 Current Interpretive Data last revised 2020. Blood 10/04/2024 9:06 AM LEAF BLENDER 10/04/2024 9:58 AM LEAF BLENDER Geraldine Leary NP LAB BLOOD ORDERABLES Final Result Performing Organization Address [place]/[facility] de Phone Number ARVINPAULA [facility] [place] [address] * (ABNORMAL) Lactate (10/04/2024 9:06 AM LEAF BLENDER) Lactate 4.1(C) 0.7 - 2.0 mmol/L Blood 10/04/2024 9:06 AM LEAF BLENDER 10/04/2024 9:58 AM LEAF BLENDER Geraldine Leary NP LAB BLOOD ORDERABLES Final Result Performing Organization Address [place]/[facility] de Phone Number ARVINPAULA [facility] [place] [address] * Critical Result Callback Chemistry (10/04/2024 9:06 AM LEAF BLENDER) Date Notified [id number] Time Notified 1024 [facility] TestName Lactate REYNALDO [facility] Called/Read Back Arin JACOBS [facility] Credentials RN REYNALDO MAHARAJ Called By NEAL MAHARAJ Blood 10/04/2024 9:06 AM LEAF BLENDER 10/04/2024 9:58 AM LEAF BLENDER Geraldine Leary NP LAB BLOOD ORDERABLES Final Result Performing Organization Address [place]/[facility] Co de Phone Number [facility] [place] [address] * eGFR (10/03/2024 10:36 PM LEAF BLENDER) eGFR 61 >=60 mL/min/1. 73 m2 Comment: [...] reviewed 2021. Blood 10/03/2024 10:3 6 PM LEAF BLENDER 10/03/2024 10:52 PM LEAF BLENDER us James Robles MD LAB BLOOD ORDERABLES Final Resu lt [facility] Department [place] [address] * (ABNORMAL) Basic metabolic panel (10/03/2024 10:36 PM LEAF BLENDER) Pathologist [facility] Sodium 142 135 - 145 mmol/L Potassium, [...] [facility] Blood 10/03/2024 10:3 6 PM LEAF BLENDER 10/03/2024 10:52 PM LEAF BLENDER us James Robles MD LAB BLOOD ORDERABLES Final Resu lt [facility] Department [place] [address] * (ABNORMAL) Differential, auto (10/03/2024 8:30 PM LEAF BLENDER) Pathologist [facility] Neutrophil abs 22.7(H) 1.5 - 6.5 K/cumm Imm gran abs 0.3(H) 0.0 - 0.1 K/cumm [facility] Lymphocyte abs 1.2 0.8 - 3.3 K/cumm [facility] Monocyte abs 2.1(H) 0.2 - 0.8 K/cumm [facility] [...] revised on 2018. Blood 10/03/2024 8:30 PM LEAF BLENDER 10/03/2024 9:05 PM LEAF BLENDER us James Robles MD LAB BLOOD ORDERABLES Final Resu lt [facility] [place] [address] * (ABNORMAL) CBC with auto differential (10/03/2024 8:30 PM LEAF BLENDER) WBC 26.3(H) 3.8 - 9.9 K/cumm Hgb [...] [facility] Blood 10/03/2024 8:30 PM LEAF BLENDER 10/03/2024 9:05 PM LEAF BLENDER us James Robles MD LAB BLOOD ORDERABLES Final Resu lt [facility] [place] [address] * eGFR (10/03/2024 8:25 PM LEAF BLENDER) eGFR 60 >=60 mL/min/1. 73 m2 Comment: [...] last reviewed 2021. Blood 10/03/2024 8:25 PM LEAF BLENDER 10/03/2024 9:05 PM LEAF BLENDER James Robles MD LAB BLOOD ORDERABLES Final Resu lt [facility] [place] [address] * (ABNORMAL) Basic metabolic panel (10/03/2024 8:25 PM LEAF BLENDER) Pathologist [facility] Sodium 143 135 - 145 mmol/L Potassium, [...] 2022. Calcium 8.0(L) 8.5 - 10.3 mg/dL [facility] Blood 10/03/2024 8:25 PM LEAF BLENDER 10/03/2024 9:05 PM LEAF BLENDER James Robles MD LAB BLOOD ORDERABLES Final Resu lt Performing Organization Address City/[facility]/ZIP Co de Phone Number [facility] Department [place] [address] * ECG 12 lead (10/03/2024 2:19 PM LEAF BLENDER) Ventricular Rate EKG/Min 96 BPM [facility] Atrial Rate 96 BPM [facility] TX-Interval (MSEC) 242 ms [facility] QRS-Interval (MSEC) 110 ms [facility] QT-Interval (MSEC) 364 ms [facility] QTc 459 ms [facility] P [place] 69 degrees [facility] R [place] 76 degrees [facility] T [place] 1 degrees [facility] Diagnosis Sinus rhythm with 1st degree A-V block Nonspecific ST and T wave abnormality Abnormal ECG When compared with ECG of 10-MAY-2008 09:35, [place] interval has increased Vent. rate has increased BY ??35 BPM Non-specific change in ST segment in Inferior leads ST now depressed in Anterolateral leads Nonspecific T wave abnormality now evident in Inferior leads QT has lengthened Confirmed by JACOBO CARSON M.D ([id number]) on 10/04/2024 10:42:26 AM [facility] 10/03/2024 2:19 PM LEAF BLENDER 10/04/2024 10:42 AM LEAF BLENDER James Robles MD ECG ORDERABLES Final Result Performing Organization Address City/[facility]/ZIP Co de Phone Number [facility] * POCT glucose (10/03/2024 2:07 PM LEAF BLENDER) [facility] Glucose, POC 128 70 - 199 mg/dL Blood 10/03/2024 2:07 PM LEAF BLENDER 10/03/2024 2:07 PM LEAF BLENDER James Robles MD LAB POCT ORDERABLES - DEVICE Fi nal Result [facility] [place] [address] * (ABNORMAL) eGFR (10/03/2024 4:58 AM LEAF BLENDER) [facility] eGFR 57(L) >=60 mL/min/1. 73 m2 Comment: [...] last reviewed 2021. Blood 10/03/2024 4:58 AM LEAF BLENDER 10/03/2024 5:32 AM LEAF BLENDER us James Robles MD LAB BLOOD ORDERABLES Final Resu lt [facility] Department of Laboratories [place], [place] [id number] * (ABNORMAL) Differential, auto (10/03/2024 4:58 AM LEAF BLENDER) Neutrophil abs 28.0(H) 1.5 - 6.5 K/cumm Imm gran abs 0.2(H) 0.0 - 0.1 K/cumm [facility] Lymphocyte abs 0.9 0.8 - [...] revised on 2018. Lymphocyte pct 2.8 % [facility] Comment: Interpretive Data Percent cell count reference [...] revised on 2018. Blood 10/03/2024 4:58 AM LEAF BLENDER 10/03/2024 5:32 AM LEAF BLENDER us James Robles MD LAB BLOOD ORDERABLES Final Resu lt [facility] [place] [address] * (ABNORMAL) CBC with auto differential (10/03/2024 4:58 AM LEAF BLENDER) WBC 30.5(H) 3.8 - 9.9 K/cumm Hgb 13.0 13.0 - 17.5 g/dL [facility] Hct 38.0(L) 38.9 - 50.3 % [facility] [...] [facility] Blood 10/03/2024 4:58 AM LEAF BLENDER 10/03/2024 5:32 AM LEAF BLENDER James Robles MD LAB BLOOD ORDERABLES Final Resu lt [facility] [place] [address] * (ABNORMAL) Basic metabolic panel (10/03/2024 4:58 AM LEAF BLENDER) Sodium 143 135 - 145 mmol/L Potassium, [...] Calcium 8.3(L) 8.5 - 10.3 mg/dL REYNALDO [facility] Blood 10/03/2024 4:58 AM LEAF BLENDER 10/03/2024 5:32 AM LEAF BLENDER us James Robles MD LAB BLOOD ORDERABLES Final Resu lt [facility] [place] [address] * XR chest 1 view (Portable) (10/02/2024 9:08 PM LEAF BLENDER) Anatomical Region Laterality Modality Body, Chest N/A Computed Radiogr aphy 10/03/2024 8:28 AM LEAF BLENDER Impressions 10/03/2024 4:05 PM LEAF BLENDER No priors available for comparison. Spinal stimulator [...] James MD, PHD Narrative 10/03/2024 4:05 PM LEAF BLENDER EXAMINATION: 1 view chest radiograph Procedure Note [...] Result * (ABNORMAL) eGFR (10/02/2024 4:01 PM LEAF BLENDER) eGFR 57(L) >=60 mL/min/1. 73 m2 Comment: [...] last reviewed 2021. Blood 10/02/2024 4:01 PM LEAF BLENDER 10/02/2024 4:17 PM LEAF BLENDER James Robles MD LAB BLOOD ORDERABLES Final Resu lt [facility] Department [place] [address] * (ABNORMAL) Differential, auto (10/02/2024 4:01 PM LEAF BLENDER) Neutrophil abs 14.1(H) 1.5 - 6.5 K/cumm Imm gran abs 0.1 0.0 - 0.1 K/cumm [facility] Lymphocyte abs 1.3 0.8 - 3.3 K/cumm [facility] Monocyte abs 0.7 0.2 - 0.8 K/cumm [facility] Eosinophil abs 0.0 0.0 - 0.5 K/cumm [facility] Basophil abs 0.1 0.0 - 0.1 K/cumm [facility] Neutrophil pct 86.5 % [facility] Comment: Interpretive Data Percent cell count reference ranges are not reported, since discordance with absolute values may lead to misinterpretation of CBC data. Current Interpretive Data was last revised on 2018. Imm gran pct 0.7 % [facility] Comment: Interpretive Data Percent cell count reference ranges are not reported, since discordance with absolute values may lead to misinterpretation of CBC data. Current Interpretive Data was last revised on 2018. Lymphocyte pct 8.0 % [facility] Comment: Interpretive Data Percent cell count reference ranges are not reported, since discordance with absolute values may lead to misinterpretation of CBC data. Current Interpretive Data was last revised on 2018. Monocyte pct 4.2 % [facility] Comment: Interpretive Data Percent cell count reference ranges are not reported, since discordance with absolute values may lead to misinterpretation of CBC data. Current Interpretive Data was last revised on 2018. Eosinophil pct 0.2 % [facility] Comment: Interpretive Data Percent cell count reference ranges are not reported, since discordance with absolute values may lead to misinterpretation of CBC data. Current Interpretive Data was last revised on 2018. Basophil pct 0.4 % [facility] Comment: Interpretive Data Percent cell count reference ranges are not reported, since discordance with absolute values may lead to misinterpretation of CBC data. Current Interpretive Data was last revised on 2018. Blood 10/02/2024 4:01 PM LEAF BLENDER 10/02/2024 4:17 PM LEAF BLENDER James Robles MD LAB BLOOD ORDERABLES Final Resu lt [facility] [place] [address] * (ABNORMAL) CBC with auto differential (10/02/2024 4:01 PM LEAF BLENDER) [facility] WBC 16.3(H) 3.8 - 9.9 K/cumm Hgb [...] [facility] Blood 10/02/2024 4:01 PM LEAF BLENDER 10/02/2024 4:17 PM LEAF BLENDER us James Robles MD LAB BLOOD ORDERABLES Final Resu lt [facility] [place] [address] * (ABNORMAL) aPTT (10/02/2024 4:01 PM LEAF BLENDER) Pathologist [facility] aPTT 27(L) 28 - 38 sec Comment: Interpretive Data Heparin therapeutic range: 66.0 - 100.0 seconds. Range based on correlation with therapeutic heparin activity range of 0.3 - 0.7 Units/mL. Current interpretive data was last revised on 2023. Blood 10/02/2024 4:01 PM LEAF BLENDER 10/02/2024 4:16 PM LEAF BLENDER James Robles MD LAB BLOOD ORDERABLES Final Resu lt Performing Organization Address [place]/[facility] de Phone Number [facility] [place] [address] * Protime-INR (10/02/2024 4:01 PM LEAF BLENDER) PT 12.4 9.7 - 13.0 sec INR 1.14 0.90 - 1.20 [facility] Comment: Interpretive data Oral anticoagulant therapeutic ranges: Venous thromboembolism prophylaxis or treatment: 2.0-3.0 CARDIOLOGY Standard range: 2.0-3.0 High-intensity range: 2.5-3.5 Refer to indication-specific guidelines for appropriate target ranges for prosthetic heart valve replacement. Current interpretive data was last revised on 2019. Blood 10/02/2024 4:01 PM LEAF BLENDER 10/02/2024 4:16 PM LEAF BLENDER Result [facility] James Robles MD LAB BLOOD ORDERABLES Final Resu lt Performing Organization Address [place]/[facility] de Phone Number [facility] [place] [address] * Phosphorus (10/02/2024 4:01 PM LEAF BLENDER) Phosphorus, pl 2.4 2.3 - 4.5 mg/dL Blood 10/02/2024 4:01 PM LEAF BLENDER 10/02/2024 4:17 PM LEAF BLENDER James Robles MD LAB BLOOD ORDERABLES Final Resu lt Performing Organization Address [place]/[facility] de Phone Number [facility] Department [place] [address] * Magnesium (10/02/2024 4:01 PM LEAF BLENDER) Pathologist [facility] Magnesium 1.9 1.4 - 2.5 mg/dL Blood 10/02/2024 4:01 PM LEAF BLENDER 10/02/2024 4:17 PM LEAF BLENDER James Robles MD LAB BLOOD ORDERABLES Final Resu lt [facility] [place] [address] * (ABNORMAL) Comprehensive metabolic panel (10/02/2024 4:01 PM LEAF BLENDER) Pathologist [facility] Sodium 141 135 - 145 mmol/L Potassium, [...] [facility] Blood 10/02/2024 4:01 PM LEAF BLENDER 10/02/2024 4:17 PM LEAF BLENDER us James Robles MD LAB BLOOD ORDERABLES Final Resu lt [facility] [place] [address] * (ABNORMAL) POC Blood Gas and Chemistries, Arterial - (10/02/2024 2:30 PM LEAF BLENDER) pH, Art POC 7.31(L) 7.35 - 7.45 pCO2, Art POC 41 35 - 45 mmHg [facility] pO2, Art POC 264(H) 83 - 108 mmHg [facility] Na, POC 140 135 - 145 [...] [facility] Blood 10/02/2024 2:30 PM LEAF BLENDER 10/02/2024 2:30 PM LEAF BLENDER James Robles MD LAB POCT ORDERABLES - DEVICE Fi nal Result Performing Organization Address City/[facility]/ZIP Co de Phone Number [facility] [place] [address] * FL Fluoroscopy < 1 Hour (10/02/2024 2:00 PM LEAF BLENDER) Narrative [id number] - 10/03/2024 5:04 PM LEAF BLENDER The images from this study are not interpreted by Radiology. ??Please refer to the physician's procedure / OR operative note. James Robles MD IMG FLUOROSCOPY PROCEDURES Cammy l Result Performing Organization Address [place]/[facility] Co de Phone Number [email or web address] * Surgical pathology (10/02/2024 12:15 PM LEAF BLENDER) Soft tissue 10/02/2024 12:1 5 PM LEAF BLENDER 10/02/2024 3:15 PM LEAF BLENDER Narrative 10/06/2024 2:00 PM LEAF BLENDER [facility]in [facility] [place] [address] NEUROPATHOLOGY REPORT FINAL Patient Name:LILI DELGADOAddress:[address] [place] [address] CTService:NeurosurgeryAccession #:[id number], [place] ??[id number]:[facility] OR POD 5Taken:10/02/2024Gender: MMRN :[id number]:4DOB:1950 (Age: 74)Hospital #:[id number]:10/02/2024atient Type:[facility] InpatientReported:10/06/2024 ? Physician(s): Abelardo Tijerina M.D. [...] Surgical Pathology report is available electronically in [employer]. The performance characteristics of some immunohistochemical stains, fluorescence in-situ hybridization tests and immunophenotyping by flow cytometry cited in this report (if any) were determined by the Surgical Pathology Department at [facility] as part of an ongoing quality assurance test program manager program and in compliance with federally mandated [...] determined by the Surgical Pathology Department of [facility]. ??It has not been cleared or approved by the U. S. Food and Drug Administration. James Robles MD LAB PATHOLOGY ORDERABLES Final Result * (ABNORMAL) POC Blood Gas and Chemistries, Arterial - (10/02/2024 10:43 AM LEAF BLENDER) pH, Art POC 7.32(L) 7.35 - 7.45 [...] [facility] Blood 10/02/2024 10:4 3 AM LEAF BLENDER 10/02/2024 10:43 AM LEAF BLENDER us James Robles MD LAB POCT ORDERABLES - DEVICE Fi nal Result [facility] [place] [address] * Arterial Line (10/02/2024 8:32 AM LEAF BLENDER) Narrative Vance Morales MD - 10/02/2024 8:32 AM LEAF BLENDER Vance Morales MD ? 10/02/2024 ??8:32 AM [...] tolerated procedure well with no complications Result [facility] Marimar Carr MD PhD ANESTHESIA ORDERABLES Final Result * Airway (10/02/2024 8:31 AM LEAF BLENDER) Narrative Vance Morales MD - 10/02/2024 8:31 AM LEAF BLENDER Vance Morales MD ? 10/02/2024 ??8:32 AM [...] * Type and screen (10/02/2024 6:18 AM LEAF BLENDER) Ramu, indirect Negative ABO Rh B Negative [facility] Blood 10/02/2024 6:18 AM LEAF BLENDER 10/02/2024 6:26 AM LEAF BLENDER Narrative [facility] - 10/02/2024 7:28 AM LEAF BLENDER Has the patient had Daratumumab or Isatuximab in the past 6 months?->Unknown us Sully Archer GREEN BUILDING ENGINEER LAB BLOOD BANK TEST ORDER TALYA Final Result [facility] [place] [address] * TYPE AND SCREEN 14 DAY (09/13/2024 11:37 AM CDT) ABO Rh B Negative Ramu, indirect Negative [facility] Blood 09/13/2024 11:3 7 AM CDT 09/13/2024 1:50 PM CDT Narrative [facility] - 09/13/2024 3:22 PM CDT Has the patient had Daratumumab or Isatuximab in the past 6 months?->Unknown Is this test being ordered in advance for a procedure?->Yes Expected date of procedure:->10/02/24 Has the patient been transfused in the past 3 months?->No us Sully Archer NP LAB BLOOD BANK TEST ORDER TALYA Final Result Performing Organization Address City/[facility]/ZIP Co de Phone Number RE[facility]LDO MAHARAJGeneral [facility] [facility] [place] [address] * (ABNORMAL) eGFR (09/13/2024 11:37 AM CDT) [...] ORDERABLES Final Resu lt Performing Organization Address City/[facility]/ZIP Co de Phone Number REYNALDO MAHARAJ Vee [facility] [place] [address] * (ABNORMAL) Differential, auto (09/13/2024 11:37 AM [...] CERNER BJ Neutrophil pct 66.1 % [facility] Comment: Interpretive Data Percent cell count reference ranges are not reported, since discordance with absolute values may lead to misinterpretation of CBC data. Current Interpretive Data was last revised on 2018. Imm gran pct 0.5 % [facility] Comment: Interpretive Data Percent cell count reference ranges are not reported, since discordance with absolute values may lead to misinterpretation of CBC data. Current Interpretive Data was last revised on 2018. Lymphocyte pct 20.7 % [facility] Comment: Interpretive Data Percent cell count reference ranges are not reported, since discordance with absolute values may lead to misinterpretation of CBC data. Current Interpretive Data was last revised on 2018. Monocyte pct 11.8 % [facility] Comment: Interpretive Data Percent cell count reference ranges are not reported, since discordance with absolute values may lead to misinterpretation of CBC data. Current Interpretive Data was last revised on 2018. Eosinophil pct 0.5 % [facility] Comment: Interpretive Data Percent cell count reference ranges are not reported, since discordance with absolute values may lead to misinterpretation of CBC data. Current Interpretive Data was last revised on 2018. Basophil pct 0.4 % [facility] Comment: Interpretive Data Percent cell count reference ranges are not reported, since discordance with absolute values may lead to misinterpretation of CBC data. Current Interpretive Data was last revised on 2018. Blood 09/13/2024 11:3 7 AM CDT 09/13/2024 1:36 PM CDT us James Robles MD LAB BLOOD ORDERABLES Final Resu lt Performing Organization Address [place]/[facility] Co de Phone Number [facility] [place] [address] * CPAP aPTT algorithm (09/13/2024 11:37 AM [...] ORDERABLES Cammy l Result Performing Organization Address [place]/[facility] de Phone Number [facility] [place] [address] * (ABNORMAL) Urinalysis reflex to microscopic and culture Urine, clean voided (09/13/2024 11:37 AM CDT) Color, ur Straw Yellow Clarity, ur Clear Clear [facility] Specific gravity, ur 1.016 1.003 - 1.030 [...] for uric acid stone formation. Source: [employer] Current Interpretive Data was last revised on 2017 Protein, ur ql Trace Negative [facility] Glucose, ur ql Negative Negative [facility] Ketones, ur Negative Negative [facility] Bilirubin, ur Negative Negative [facility] Blood, ur 1+(A) Negative [facility] [...] ORDE LATIA Final Result Performing Organization Address City/[facility]/ZIP Co de Phone Number [facility] Department [place] [address] * (ABNORMAL) CBC with auto differential (09/13/2024 [...] MD LAB BLOOD ORDERABLES Final Resu lt [facility] [place] [address] * Vitamin D 25 hydroxy (09/13/2024 11:37 AM CDT) Vitamin D 25-OH 30 30 - 80 ng/mL Blood 09/13/2024 11:3 7 AM CDT 09/13/2024 1:34 PM CDT James Robles MD LAB BLOOD ORDERABLES Final Resu lt Performing Organization Address [place]/[facility] Co de Phone Number [facility] [place] [address] * (ABNORMAL) Urinalysis, microscopic only (09/13/2024 11:37 [...] ORDERABLES Final Resu lt Performing Organization Address City/[facility] Co de Phone Number [facility] [place] [address] * aPTT (09/13/2024 11:37 AM CDT) aPTT [...] ORDERABLES Final Resu lt Performing Organization Address [place]/[facility] de Phone Number [facility] [place] [address] * Protime-INR (09/13/2024 11:37 AM CDT) Pathologist [facility] PT 11.0 9.7 - 13.0 sec INR [...] ORDERABLES Final Resu lt Performing Organization Address [place]/[facility] de Phone Number [facility] [place] [address] * (ABNORMAL) Basic metabolic panel (09/13/2024 11:37 AM CDT) Pathologist [facility] Sodium 144 135 - 145 mmol/L Potassium, [...] LAB BLOOD ORDERABLES Final Resu lt [facility] [place] [address] from Last 3 Months Insurance MEDICARE [facility] MEDICARE [facility] FEDERAL Advance Directives For more information, please contact: [phone] * Full Code (Latest Code Status on File) Date Activated Date Inactivated Comments 10/02/2024 7:33 PM 10/14/2024 6:47 PM Care Teams Boring Machine Feeder Relationship Specialty Start Date End Date Sj Benson MD [address] [facility] [place] [address] PCP - General Family Medicine 07/05/24
--- OUTSIDE RECORDS SUMMARY | 2024-11-14 20:31 | XMS_ITS | Encounter Summary ---
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] Procedures [place] ARTHRODESIS POSTERIOR/PSTLAT TQ 1NTRSPC THORACIC WV ROMERO EXC ISPI LES OTH/THN LUCIO IDRL THORACIC WV ARTHRODESIS PST/PSTLAT TQ 1NTRSPC EA ADDL NTRSPC WV POSTERIOR SEGMENTAL INSTRUMENTATION 3-6 VRT SEG WV AUTOGRAFT SPINE SURGERY LOCAL FROM SAME INCISION WV ALLOGRAFT FOR SPINE SURGERY ONLY MORSELIZED FUSION SPINAL - POSTERIOR LUMBAR/THORACIC WITH INSTRUMENTATION; T3-5 posterior spinal fusion with 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 LAMINECTOMY THORACIC DECOMPRESSION SPINAL CORD MONITORING Referral ID Status Reason Start Date Expiration Date Visits Re quested Visits Authorized [id number] 1 1 Encounter Details Date Type Department Care Team (Latest Contact Info) Description 10/02/2024 5:29 AM MOULDER OPERATOR - 10/14/2024 2:41 PM MOULDER OPERATOR Hospital Encounter [facility] [address] [place] [address] James Robles MD [address] [place] [address] Thoracic myelopathy Discharge Disposition: Discharge to an [...] on file Legal Sex Male 12:23 PM MOULDER OPERATOR Gender Identity Not on file Sexual Orientation Not on file documented as of this encounter Last Filed Vital Signs Vital Sign Reading Time Taken Comments Blood Pressure 109/63 10/14/2024 12:17 PM MOULDER OPERATOR Pulse 60 10/14/2024 12:17 PM MOULDER OPERATOR Temperature 36.6 ??C (97.9 ??F) 10/14/2024 1 2:17 PM MOULDER OPERATOR Respiratory Rate 16 10/14/2024 12:1 7 PM MOULDER OPERATOR Oxygen Saturation 97% 10/14/2024 12: 17 PM MOULDER OPERATOR Inhaled Oxygen Concentration - - Weight 98.4 kg (216 lb 14.9 oz) 10/12/2024 2:30 PM MOULDER OPERATOR Height 182.9 cm (6') 10/03/2024 2:04 PM MOULDER OPERATOR Body Mass Index 29.42 10/03/2024 2:04 PM MOULDER OPERATOR documented in this encounter Discharge Summaries * Osiris Guillen NP - 10/14/2024 11:16 AM CST Images from the original note were not included. Spine Inpatient Discharge Summary Admitting Provider: James Robles MD Discharge Provider: James Robles MD Primary Care Physician at Discharge: Sj Benson MD [phone] Admission Date: 10/02/2024 Discharge Date: 10/14/2024 Primary [...] Time Provider Department Center 11/29/2024 9:35 AM Jaems Robles MD SPINE [id number] NS 07/16/2025 10:00 AM Jarocho Looney MD [facility] Chem/LFT Lab History Latest Ref Rng [...] says it's OK. -Do not do any laboratory asst that cause you to twist, push or [...] James Robles MD at 10/14/2024 1:14 PM MOULDER OPERATOR DER OPERATOR DER OPERATOR documented in this encounter Discharge Instructions * Discharge Instructions* Dc Ott NP - 10/09/2024 6:37 AM MOULDER OPERATOR Discharge Instructions Thoracic Laminectomy Your doctor has [...] blood pressure), call your family doctor or manager employment. You will be given a prescription for [...] donot hear regarding an appointment, please call [phone] - Neurosurgery: You should follow up in Dr. Robles's clinic in 4-6 weeks with xrays of your back. If you do not have a follow-up appointment, call to schedule one. Please arrive 30 minutes prior to your scheduled appointment. Phone numbers Appointment Scheduling: Doctor???s Office: Dr. James Robles, After hours emergency: or DER OPERATOR DER OPERATOR DER OPERATOR DER OPERATOR DER OPERATOR * Attachments The following attachments cannot be sent through Care Everywhere. * Deep Vein Thrombosis (AfterCare(R) Instructions(ER/ED)) (Swedish) * Apixaban (By mouth) (Swedish) documented in this encounter Medications at Time [...] Comment s Discharge to an Rehab facility [facility] documented in this encounter Progress Notes * Marla Larson RN - 10/14/2024 9:42 AM CST 10/13/24 1440 Discharge Summary Discharge Disposition Acute Rehab Specify Facility [facility] Contact Number [phone] Morris Discharge Records Transfer Form Completed;Chart Copied Recommended Discharge Level of Care Acute Rehab Actual Discharge Level of Care Acute Rehab Does Actual Level of Care Match Care Team Recommendation? Yes Post Acute Care Plan Home Care Services N/A OP Services N/A DME N/A Post Acute Care Facility Yes Referral Status Accepted Accepted Post Acute Care Location and Contact [facility] Accepted Post Acute Care Discharge Additional Assistance Does the patient need discharge transport arranged? Yes Type of Transportation Ambulance/EMS Has discharge transport been arranged? Yes Details of Transportation [facility] [phone] trip # [phone] D/C Transport Anticipated Date 10/14/24 D/C Transport Anticipated Time 1300 Per medical team, patient is medically stable for discharge at this time. [facility] been [facility]. CM spoke with the patient/family, admissions, medical [...] Patient/family informed patient may require ambulance transport. cultural centre manager informed patient/family that even if the patient's insurance benefit includes ambulance transport, it may not cover the full cost of the transportation. The patient may be responsible for any [id number] cost, includingmileage beyond the nearest appropriate facility. Patient/family voiced understanding. No further case management needs identified at this time DER OPERATOR * Bladimir Clark MD - 10/14/2024 7:17 [...] James Robles MD at 10/14/2024 1:14 PM MOULDER OPERATOR DER OPERATOR DER OPERATOR * Tiffanie Tirado, PT - 10/13/2024 3:09 [...] treatment team and contact the PT or FIRST ASSIST currently assigned to this patient. If a physical therapy clinician is not assigned to this patient, please call [phone]. 10/13/24 1509 PT Last Visit Session Type [...] 2 reps with WW, 1 reps with FIRE BEHAVIOR ANALYST Transfers 2 Transfer From 2 Bed Transfer [...] assist: 10/07/24 10/14/24 -- Goal Details: supervision DER OPERATOR * Harley Allen, OT - 10/13/2024 2:58 [...] not assigned to this patient, please call [phone]. 10/13/24 6743 General Session Type Treatment (Co-tx with PT) [...] tasks with mod A 10/04/24 10/26/24 -- DER OPERATOR * Pavel Sheets MD - 10/13/2024 6:36 [...] - Heparin gtt (goal 46-70) Dispo rehab ([facility]) DVT prophylaxis: lovenox Responsible team (call resident in bold with questions) Kortney Dean Note created by Pavel Sheets MD on 10/13/2024 at 6:36 AM. Cosigned by James Robles MD at 10/13/2024 8:44 AM MOULDER OPERATOR DER OPERATOR DER OPERATOR * Harley Allen, OT - 10/12/2024 10:11 AM CST Occupational Therapy Occupational Therapy Progress Note NOTE: This is a summary note of the culelar components of the treatment session. For full [...] not assigned to this patient, please call [phone]. 10/12/24 1011 General Session Type Treatment OT [...] tasks with mod A 10/04/24 10/26/24 -- DER OPERATOR * Tiffanie Tirado, PT - 10/11/2024 2:40 [...] treatment team and contact the PT or FIRST ASSIST currently assigned to this patient. If a physical therapy clinician is not assigned to this patient, please call [phone]. 10/11/24 1440 PT Last Visit Session Type [...] assist: 10/07/24 10/14/24 -- Goal Details: supervision DER OPERATOR * Wild Perez MD - 10/11/2024 6:09 [...] Heparin gtt (goal 46-70) restarted Dispo rehab ([facility] referral sent 10/06) DVT prophylaxis: lovenox Responsible team (call resident in bold with questions) Chris Dean Note created by Wild Perez MD on 10/11/2024 at 6:08 PM. Cosigned by James Robles MD at 10/11/2024 7:37 PM MOULDER OPERATOR DER OPERATOR DER OPERATOR * Nohemi Zuleta, OT - 10/10/2024 1:16 [...] not assigned to this patient, please call [phone]. 10/10/24 0896 General Session Type Treatment OT Received On [...] tasks with mod A 10/04/24 10/11/24 -- DER OPERATOR * Wild Perez MD - 10/10/2024 8:01 [...] James Robles MD at 10/10/2024 9:20 AM MOULDER OPERATOR DER OPERATOR DER OPERATOR * Keyla Connolly, CAITLIN - 10/09/2024 5:06 [...] RD following. Keyla Connolly MS RD LD #[phone] DER OPERATOR * Rae Soni - 10/09/2024 11:08 AM [...] treatment team and contact the PT or FIRST ASSIST currently assigned to this patient. If a physical therapy clinician is not assigned to this patient, please call [phone]. 10/09/24 1108 PT Last Visit Session Type [...] Mike Estrada, PT at 10/09/2024 1:58 PM MOULDER OPERATOR DER OPERATOR DER OPERATOR * Wild Perez MD - 10/09/2024 7:40 [...] James Robles MD at 10/10/2024 9:20 AM MOULDER OPERATOR DER OPERATOR DER OPERATOR * Wild Perez MD - 10/08/2024 6:32 [...] Miles Rodrigez MD at 10/08/2024 9:44 PM MOULDER OPERATOR DER OPERATOR DER OPERATOR * Nicko Zee - 10/07/2024 2:08 PM [...] treatment team and contact the PT or FIRST ASSIST currently assigned to this patient. If a physical therapy clinician is not assigned to this patient, please call [phone]. 10/07/24 1408 PT Last Visit Session Type [...] Roe Calles, PT at 10/07/2024 3:15 PM MOULDER OPERATOR DER OPERATOR DER OPERATOR * Osiris Guillen NP - 10/06/2024 2:41 PM CST Drain Removal Note [place] drain x1 removed without difficulty. Sutures removed, drain pulled, tubing intact upon removal. Sterile 2x2 dressing and tape placed over insertion site. No erythema noted. Patient tolerated procedure well. RN notified of removal. Plan: - Okay to remove dressing tomorrow and leave site open to air. Osiris Guillen NP DER OPERATOR * Tiffanie Tirado, PT - 10/06/2024 1:34 [...] treatment team and contact the PT or FIRST ASSIST currently assigned to this patient. If a physical therapy clinician is not assigned to this patient, please call [phone]. 10/06/24 1334 PT Last Visit Session Type [...] did not feel it when he went, STAND GRINDER and RN notified. Pt unable to move [...] and from stand CGA 10/04/24 10/18/24 -- DER OPERATOR * Harley Allen, OT - 10/06/2024 1:18 [...] not assigned to this patient, please call [phone]. 10/06/24 1318 General Session Type Treatment OT [...] tasks with mod A 10/04/24 10/11/24 -- DER OPERATOR * Wild Perez MD - 10/06/2024 7:50 [...] James Robles MD at 10/06/2024 1:09 PM MOULDER OPERATOR DER OPERATOR DER OPERATOR * Willy Nguyen MD - 10/05/2024 12:41 [...] plan with the ICU team and other medical/reporting consultant staff. Critical Care Time: I have spent 30 minutes in full attendance with this critically ill patient making frequent reassessments and decisions regarding this patient's complex medical care. Critical care time was exclusive of separately billable procedures, treating other patients and teaching time. Willy Nguyen MD Stroke/Neurointensive Attending DER OPERATOR * Magali Ocampo, PT - 10/05/2024 9:34 [...] treatment team and contact the PT or FIRST ASSIST currently assigned to this patient. If a physical therapy clinician is not assigned to this patient, please call [phone]. 10/05/24 2897 PT Last Visit Session Type Treatment PT [...] and from stand CGA 10/04/24 10/18/24 -- DER OPERATOR * Florentin Dean MD - 10/05/2024 6:40 [...] (premix) 2,000 mg 2,000 mg intravenous Q24H [facility] dexAMETHasone (DECADRON) tablet 6 mg 6 mg oral Q6H [facility] docusate sodium (COLACE) capsule 100 mg 100 [...] James Robles MD at 10/05/2024 8:15 AM MOULDER OPERATOR DER OPERATOR DER OPERATOR * Maria Isabel Unger STAND GRINDER - 10/05/2024 6:05 AM CST Neuro Critical [...] and feet bilaterally and arrives to [facility] for posterior lumbar-thoracic spinal fusion with instrumentation [...] fluids: IV SL Flushes: None Last BM: FIRST ASSIST # Nutrition -- regular diet -- encourage [...] mg daily CODE STATUS: Full Code [facility] Maria Isabel Unger NP Cosigned by Willy Nguyen MD at 10/06/2024 7:25 AM MOULDER OPERATOR DER OPERATOR DER OPERATOR * Nadia Moulton - 10/04/2024 2:37 PM [...] treatment team and contact the PT or FIRST ASSIST currently assigned to this patient. If a physical therapy clinician is not assigned to this patient, please call [phone]. 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 Electrical Systems Drafter Object from Floor from a Standing Position [...] Arin Noriega, PT at 10/04/2024 4:26 PM MOULDER OPERATOR DER OPERATOR DER OPERATOR * Taty Quezada, OT - 10/04/2024 11:03 [...] not assigned to this patient, please call [phone]. 10/04/24 5298 General Chart Reviewed Yes Session Type Evaluation [...] Using Wheeled walker Prior Function Level of [place] Independent with ADLs;Independent with ambulation;Needs assistance with homemaking (Indp with ADLs with ww except assist for lower body dressing) Lives With Spouse Receives Help From Spouse/Significant other (interactive multimedia designer assist) Vocational/Occupation (not working) Fall within the [...] name and address after me Jeffrey Adams [address] [place] [address] Without looking at the clock, tell me [...] perform toilet transfer with mod A to [facility] 10/04/24 10/11/24 -- Problem: OT Misc Start Date: 10/04/24 Goal Start Date Expected End Date End Date OT LTG - Pt will complete Adls with modified independence 10/04/24 12/01/24 -- Problem: Toileting Start Date: 10/04/24 Goal Start Date Expected End Date End Date STG - Patient will complete toileting tasks with mod A 10/04/24 10/11/24 -- DER OPERATOR * Keri Ramon MD - 10/04/2024 8:28 AM CST Critical care note I have seen and examined this patient on the day of service. I have reviewed and confirmed the history, vitals, medications, laboratory and radiographic data with the ICU team. I have reviewed and discussed my treatment plan with the ICU team and other medical/reporting consultant staff as documented in the note [...] time. Keri Ramon M.D. Attending Physician, Neurocritical Forensic Identification SpecialistTraveling Nurse, Department of Neurology DER OPERATOR * Florentin Dean MD - 10/04/2024 6:40 [...] James Robles MD at 10/04/2024 9:00 PM MOULDER OPERATOR DER OPERATOR DER OPERATOR * Tamanna Porras NP - 10/04/2024 6:16 [...] and feet bilaterally and arrives to [facility] for posterior lumbar-thoracic spinal fusion with instrumentation [...] Diet Regular Diet effective now Question: ([facility]) Diet type Answer: Regular 10/02/241932 IV fluids: NS @ 10 ml/hr carrier Flushes: n/a Last BM: FIRST ASSIST # Nutrition -- regular diet -- bowel [...] Keri Ramon MD at 10/04/2024 3:53 PM MOULDER OPERATOR DER OPERATOR DER OPERATOR * Wild Perez MD - 10/03/2024 7:42 [...] James Robles MD at 10/03/2024 8:15 AM MOULDER OPERATOR DER OPERATOR DER OPERATOR Associated attestation - James Robles MD - 10/03/2024 8:15 AM MOULDER OPERATOR I have seen and examined the patient [...] Incision dressed, drain x1 [place]: [place] [address] NNICU MAP>110 Dex 6q6 Diet: Advance as tolerated Antibiotics: Ancef & Vancomycin x 24hrs Activity Restrictions: No activity restrictions Imaging required: None If there are any issues or questions, please page Wild Perez MD at [phone] Wild Perez MD DER OPERATOR documented in this encounter H&P Notes * [...] and feet bilaterally and arrives to [facility] for posterior lumbar-thoracic spinal fusion with instrumentation [...] Diet Regular Diet effective now Question: ([facility]) Diet type Answer: Regular 10/02/241932 IV fluids: NS @ 100 ml/hr Flushes: n/a Last BM: FIRST ASSIST # Nutrition -- ADAT -- bowel reg [...] Keri Ramon MD at 10/04/2024 3:53 PM MOULDER OPERATOR DER OPERATOR DER OPERATOR * Meghan Major DO - 10/02/2024 6:46 [...] resection LAMINECTOMY THORACIC DECOMPRESSION SPINAL CORD MONITORING DER OPERATOR DER OPERATOR Source Note - Jeronimo Burch NP - 09/13/2024 10:58 AM CDT Images from the original note were not included. [facility] for Preoperative Assessment and Planning Preoperative Evaluation Record Evaluation type/location: [facility] Planned procedure site: [facility] (Pods 2/3/5/DYE COLORIST DYER) Date: 09/13/24 Anesthesia Evaluation Lili Delgado is [...] vein thrombosis (DVT) of upper extremity (CMS/HCC) ([facility]) 09/29/2021 Essential (primary) hypertension 08/04/2021 Abnormal EKG [...] up:PIV placed w/o complication Ti Pressley RN DER OPERATOR * Jessica Fernández RN - 10/03/2024 11:32 [...] = Cosigned By Initials Name Dmitry Rondon, beading installer Access Documentation (Last 4 Hours) [facility] Additional [...] RN Plan: Follow up: Jessica Fernández RN DER OPERATOR * Olaf Pena III, MD - 10/02/2024 [...] using the electrical stimulator integrated into the [facility] evoked potential machine. Bilateral TcMEPs were recorded [...] all changes at the times they occurred. DER OPERATOR documented in this encounter Consult Notes * [...] AC x6 months, who presented to [facility] for T3-5 laminectomy/ decompression and intradural arachnoid [...] AC x6 months, who presented to [facility] for T3-5 laminectomy/ decompression and intradural arachnoid [...] to be discussed in detail with outpatient Hand Loom Weaver). Heme f/u with Dr Salmon in about 3 months has been requested. Thank you for allowing us to participate in the care of Mr Delgado and we will continue to follow peripherally. Please call the Hematology service with any additional questions or concerns. This case was discussed with my attending physician Dr Salmon, who agrees with the above mentionedassessment and plan. Pg [phone] Weekdays 8AM-4PM Weeknights 4PM - 8AM, all day on Weekends, all day on holidays and my days off work, please contactthe on-call fellow at [phone] For patients or family members viewing this note through [employer] programs. This note was written as a [...] Jason Salmon MD at 10/15/2024 6:32 PM MOULDER OPERATOR DER OPERATOR DER OPERATOR * Mary Lou Jack MD - 10/09/2024 [...] months. In 07/2021 he also saw [facility] news commentator Dr. Saez for pre-op eval, and was [...] 5PM or on weekends, please page the signal intelligence/electronic warfare telephone diaphragm assembler with any questions or concerns. Mary Lou Mayfield Ma, MD 11:30 AM 10/09/24 Cosigned by Sofia Ochoa MD at 10/10/2024 2:53 PM MOULDER OPERATOR DER OPERATOR DER OPERATOR DER OPERATOR DER OPERATOR Associated attestation - Sofia Ochoa MD - 10/10/2024 2:53 PM MOULDER OPERATOR I have seen and examined the patient [...] The phone number for our clinic is [phone] - Urology will sign off. Thank you for allowing us to participate in this patient's care. To reach the urology consult resident from 6:00 to 18:00 (Wednesday-Wednesday), please call [phone].If you want to contact Urology consults after hours (18:00 to 6:00) and over the weekend, please call the metal punch press operator Neha Templeton NP DER OPERATOR documented in this encounter Nursing Notes * Jaimie Curiel RN - 10/11/2024 6:51 PM CST [id number] Alert and appropriate. Medicated for pain. Zheng to gravity. Tolerating diet. Heparin gttper nomogram. IVF as ordered. Up in chair. Total lift back to bed. See labs, flowsheets. DER OPERATOR * Kristin Land RN - 10/05/2024 9:37 PM CST Patient transferred to room [address] [place] [address]. Neuro status and VSS. Bedside shift report given to MARK Fox. Patient belongings transferred w/ pt, and are at bedside. DER OPERATOR * Melia Maria RN - 10/02/2024 4:23 [...] not unexpected. Neurosurgery at bedside assessing patient. DER OPERATOR DER OPERATOR documented in this encounter Miscellaneous Notes * Plan of Care - Marla Larson RN - 10/13/2024 2:12 PM CST Per Medical Chart/Rounds/IDR: Heparin infusion. Marce replaced ADD: 10/14 Plan/referrals made/in place: [facility] following Transportation: [facility] F/U Appointments: Patient to follow up with spinal surgery Plan for weekend discharge: [facility] following. Liaison Stephanie [phone] telephone diaphragm assembler for this weekend. [facility] on hole, trip # [phone]. Discharge packet initiated and placed by patient's paper chart folder. Will follow. DER OPERATOR DER OPERATOR * Plan of Care - Marla Larson [...] and ensure patient has continuum of care. Advanced Solutions Architect will continue to follow and assist with discharge planning as needed DER OPERATOR * Plan of Care - Marla Larson [...] and ensure patient has continuum of care. Advanced Solutions Architect will continue to follow and assist with discharge planning as needed DER OPERATOR DER OPERATOR * Plan of Care - Joyce Guillen [...] VS, I/O, pain, and maintain safe environment. Intermediate Patient Centered Goal for Treatment: Get better and go home Summary: Pt resting comfortably in bed, set up for breakfast. DER OPERATOR * Plan of Care - Mauricio Esparza RN - 10/12/2024 6:52 AM MOULDER OPERATOR Goals: Clinical Goals for the Shift: VSS, monitor labs, management of pain, remain free from falls, promote rest and comfort Pharmacy Billing Adjudicator Patient Centered Goal for Treatment: Get better [...] impaired skin integrity will decrease Outcome: Progressing DER OPERATOR * Plan of Care - Neville Larson [...] free from falls, promote rest and comfort Intermediate Patient Centered Goal for Treatment: Get better and go home Summary: VSS, A&O x4, controlled pain with pain medications. Pt resting between care. Fall precautions in place. Call light in reach. DER OPERATOR * Plan of Care - Neha Velasquez RN - 10/11/2024 12:46 PM MOULDER OPERATOR Goals: Clinical Goals for the Shift: VSS, monitor labs, management of pain, remain free from falls, promote rest and comfort Pharmacy Billing Adjudicator Patient Centered Goal for Treatment: Get better [...] of mobility impairment will improve Outcome: Progressing DER OPERATOR * Plan of Care - Marla Larson RN - 10/11/2024 9:58 AM CST Per Rounds: Possible restart heparin infusion ADD: 10/12 vs 10/13 [facility]. Patient's Identified Problem/Goal Problem: Ensure acute medical needs are met and patient has a safe discharge plan. Goal: Secure a discharge plan that patient/family are agreeable with and ensure patient has continuum of care. Advanced Solutions Architect will continue to follow and assist with discharge planning as needed DER OPERATOR * Plan of Care - [place] - [...] precautions in place. Call light in reach. DER OPERATOR * Consults, Subsequent - Claudia Ryan NP - 10/10/2024 3:48 PM MOULDER OPERATOR Images from the original note were not [...] AC x6 months, who presented to [facility] for T3-5 laminectomy/ decompression and intradural arachnoid [...] consider: Enoxaparin 30mg BID---> 10/16/2024 Heparin gtt [id number]---> if no bleeding concerns, switch to Apixaban 5mg BID Vs. Heparin gtt with PTT goal per primary team and no bolus--->10/16/2024 Heparin gtt with standard PTT goal 60-90 [id number]---> Apixaban 5mg BID if no concern for [...] to call with questions or concerns. Pg [phone] Weekdays 8AM-4PM. Weeknights 4PM - 8AM, all day on Weekends, all day on holidays and my days off work, please contactthe on-call fellow at [phone] For patients or family members viewing this note through [employer] programs. This note was written as a [...] Sherry Calles MD at 10/13/2024 2:48 PM MOULDER OPERATOR DER OPERATOR DER OPERATOR * Significant Event - Anibal Camacho MD - 10/10/2024 9:45 AM MOULDER OPERATOR Interventional Radiology Consult Resolution Note Reason for [...] discussed with Dr. Huntley, the IR Attending. DER OPERATOR * Plan of Care - Marla Larson [...] and ensure patient has continuum of care. Advanced Solutions Architect will continue to follow and assist with discharge planning as needed DER OPERATOR * Plan of Care - Neville Larson [...] precautions in place. Call light in reach. DER OPERATOR * Plan of Care - Geovanni Bell [...] from injury from falls 10/09/20241708 by Geovanni Blel RN Outcome: Progressing 10/09/20241708 by Geovanni Bell [...] of mobility impairment will improve Outcome: Progressing DER OPERATOR * Plan of Care - Marla Larson RN - 10/09/2024 9:19 AM CST Per Rounds: Zheng replaced. EGK for chest pain. Chest x-rays, dopplers. ADD: 10/10 Plan & referrals made/in place: [facility] following. Patient's Identified Problem/Goal Problem: Ensure acute medical needs are met and patient has a safe discharge plan. Goal: Secure a discharge plan that patient/family are agreeable with and ensure patient has continuum of care. Advanced Solutions Architect will continue to follow and assist with discharge planning as needed DER OPERATOR * Plan of Care - Sia Mathias [...] Stability: Monitor vital signs, rhythm, and trends DER OPERATOR * Plan of Care - Geovanni Bell [...] Understanding discharge needs will improve Outcome: Progressing DER OPERATOR * Plan of Care - Skinny Dubose [...] oxycodone, carleen lift, will continue to monitor. DER OPERATOR * Plan of Care - Marla Larson RN - 10/06/2024 10:57 AM MOULDER OPERATOR Advanced Solutions Architect noted patient has been recommended for Inpatient Rehab by PT/OT. Advanced Solutions Architect met withthe patient at bedside to discuss recommendations by therapy and to work on a potential discharge disposition plan. Advanced Solutions Architect provided education to patien on the rehabilitation process. Patient reported being interested in placement for rehabilitation. cultural centre manager provided a list of Inpatient Rehab Facility choices to patient. [facility] via [facility]. CM awaiting acceptance from an Inpatient Rehab Facility and will continue to work on discharge planning with patient and family. DER OPERATOR * ECIN Note - Marla Larson RN [...] assess Unable to assess Unable to assess DER OPERATOR * ECIN Note - Marla Larson RN - 10/06/2024 10:56 AM CST Images from the original note were not included. Patient Information: OT Eval and Treat Last 72 Hours OT Evaluation Row Name 10/04/24 1107 Chart Reviewed Yes - Session Type Evaluation [...] Equipment-Currently Using Wheeled walker - Level of [place] Independent with ADLs;Independent with ambulation;Needs assistance with homemaking Indp with ADLs with ww except assist for lower body dressing - Lives With Spouse - Receives Help From Spouse/Significant other interactive multimedia designer assist - Vocational/Occupation -- not working - [...] name and address after me Jeffrey Adams [address] [place] [address] - Without looking at the clock, tell [...] skin integrity;Prolonged dependence for self care tasks [facility] Recommend Inpatient Rehab/Acute Rehab due to Ability [...] 72 Hours PT Evaluation Row Name 10/04/24 7594 Chart Reviewed Yes -GM (r) LG (c) [...] walker -GM (r) LG (c) Level of [place] Independent with ADLs;Independent with ambulation;Needs assistance with homemaking -GM (r) LG (c) Lives With Spouse -GM (r) LG (c) Receives Help From Spouse/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 Electrical Systems Drafter Object from Floor from a Standing Position [...] Progress Notes signed by Magali Ocampo, PT DER OPERATOR * ECIN Note - Marla Larson RN - 10/06/2024 10:56 AM CST Patient Information: Meds and Admin Active Only All Meds/Most Recent Administrations acetaminophen (TYLENOL) tablet 1,000 mg [[id number]] Ordering Provider: James Robles MD Status: Completed (Past End Date/Time) Ordered On: 10/02/24547 Starts/Ends: 10/02/24629 - 10/02/24614 Ordered Dose (Remaining/Total): 1,000 mg (0/1) Route: oral Frequency: Once Ordered Rate/Order Duration: -- / -- Admin Instructions: Administer 60 minutes prior to surgery. Timestamps Action Dose Route Other Information 10/02/24614 Given 1,000 mg oral Performed by: Juanis Lozano RN Scanned Package: 3590-1782-61, 9108-5473-57 gabapentin (NEURONTIN) capsule 300 mg [[id number]] Ordering Provider: James Robles MD Status: Completed (Past End Date/Time) Ordered On: 10/02/24547 Starts/Ends: 10/02/24629 - 10/02/24614 Ordered Dose (Remaining/Total): 300 mg (0/1) Route: oral Frequency: Once Ordered Rate/Order Duration: -- / -- Admin Instructions: Administer 60 minutes prior to surgery. Timestamps Action Dose Route Other Information 10/02/24614 Given 300 mg oral Performed by: Juanis Lozano RN Scanned Package: 46352-765-48 ceFAZolin (ANCEF) 2,000 mg/20 mL in sterile water (premix) 2,000 mg [[id number]] Ordering Provider: James Robles MD Status: Completed [...] in sodium chloride 0.9% (premix) 1,500 mg [[id number]] Ordering Provider: James Robles MD Status: Completed [...] Morales MD oxyCODONE (ROXICODONE) tablet 5 mg [[id number]] Ordering Provider: Vance Morales MD Status: Completed [...] Performed by: Melia Maria RN Scanned Package: 33147-870-04 baclofen (LIORESAL) tablet 10 mg [[id number]] Ordering Provider: Wild Perez MD Status: Dispensed Ordered On: 10/02/24 154 Start: 10/02/24 173 Ordered Dose (Remaining/Total): 10 mg (--/--) Route: oral Frequency: 2 times daily Ordered Rate/Order Duration: -- / -- Timestamps Action Dose Route Other Information 10/06/24 0851 Given 10 mg oral Performed by: Skinny Dubose RN Scanned Package: [address]-[address] (CYMBALTA) extended release capsule 30 mg [[id number]] Ordering Provider: Wild Perez MD Status: Dispensed [...] Performed by: Skinny Dubose RN Scanned Package: 77413-255-89 finasteride (PROSCAR) tablet 5 mg [[id number]] Ordering Provider: Tamanna Porras NP Status: Dispensed Ordered On: 10/02/241932 Start: 10/03/24 0900 Ordered Dose (Remaining/Total): 5 mg (--/--) Route: oral Frequency: Every morning Ordered Rate/Order Duration: -- / -- Admin Instructions: Do not crush, break, or open. Timestamps Action Dose Route Other Information 10/06/2451 Given 5 mg oral Performed by: Skinny Dubose RN Scanned Package: 97946-184-68 sodium chloride 0.9% flush 0.5-20 mL [[id number]] Ordering Provider: Wild Perez MD Status: Verified Ordered On: 10/02/241932 Start: 10/02/241932 Ordered Dose (Remaining/Total): 0.5-20 mL (--/--) Route: intra-catheter Frequency: As needed Ordered Rate/Order Duration: -- / -- Admin Instructions: Flush volume based on line type and size. Flush before and after each use. (No admins scheduled or recorded for this medication) Carrier Fluids for Secondary Infusion - 0.9% Sodium Chloride [[id number]] Ordering Provider: Wild Perez MD Status: Verified [...] this medication) oxyCODONE (ROXICODONE) tablet 5 mg [[id number]] Ordering Provider: Wild Perez MD Status: Verified [...] this medication) ondansetron (ZOFRAN) injection 4 mg [[id number]] Ordering Provider: Wild Perez MD Status: Verified Ordered On: 10/02/241932 Start: 10/02/241932 Ordered Dose (Remaining/Total): 4 mg (--/--) Route: intravenous Frequency: Every 6 hours PRN Ordered Rate/Order Duration: -- / 2 Minutes Admin Instructions: Proceed to trimethobenzamide if no relief within 30 minutes. (No admins scheduled or recorded for this medication) famotidine (PEPCID) tablet 20 mg [[id number]] Ordering Provider: Wild Perez MD Status: Dispensed Ordered On: 10/02/241932 Start: 10/02/242099 Ordered Dose (Remaining/Total): 20 mg (--/--) Route: oral Frequency: Every 12 hours scheduled Ordered Rate/Order Duration: -- / -- Admin Instructions: If able to swallow tablets. Timestamps Action Dose Route Other Information 10/06/24 0851 Given 20 mg oral Performed by: Skinny Dubose RN Scanned Package: 91844-934-93 docusate sodium (COLACE) capsule 100 mg [[id number]] Ordering Provider: Wild Perez MD Status: Dispensed Ordered On: 10/02/241932 Start: 10/02/242099 Ordered Dose (Remaining/Total): 100 mg (--/--) Route: oral Frequency: 2 times daily Ordered Rate/Order Duration: -- / -- Admin Instructions: If able to swallow capsules. Hold for diarrhea. Timestamps Action Dose Route Other Information 10/06/2451 Given 100 mg oral Performed by: Skinny Dubose RN Scanned Package: 58116-389-99 senna (SENOKOT) tablet 1 tablet [[id number]] Ordering Provider: Wild Perez MD Status: Dispensed Ordered On: 10/02/241932 Start: 10/02/242099 Ordered Dose (Remaining/Total): 1 tablet (--/--) Route: oral Frequency: 2 times daily Ordered Rate/Order Duration: -- / -- Admin Instructions: If able to swallow tablets. Hold for diarrhea. Timestamps Action Dose Route Other Information 10/06/2451 Given 1 tablet oral Performed by: Skinny Dubose RN Scanned Package: 2490-1999-95 polyethylene glycol (MIRALAX) packet 17 g [[id number]] Ordering Provider: Wild Perez MD Status: Dispensed Ordered On: 10/02/241932 Start: 10/02/242014 Ordered Dose (Remaining/Total): 17 g (--/--) Route: oral Frequency: Daily Ordered Rate/Order Duration: -- / -- Admin Instructions: Hold for diarrhea. Timestamps Action Dose Route Other Information 10/06/2451 Given 17 g oral Performed by: Skinny Dubose RN Scanned Package: 00503-842-39 bisacodyL (DULCOLAX) suppository 10 mg [[id number]] Ordering Provider: Wild Perez MD Status: Dispensed Ordered On: 10/02/241932 Start: 10/02/241932 Ordered Dose (Remaining/Total): 10 mg (--/--) Route: rectal Frequency: Daily PRN Ordered Rate/Order Duration: -- / -- Admin Instructions: If not bowel movement in 48 hours. Timestamps Action Dose Route Other Information 10/05/24 2337 Given 10 mg rectal Performed by: Kay Aaron RN Scanned Package: 8983-0208-96 enoxaparin (LOVENOX) syringe 30 mg [[id number]] Ordering Provider: Wild Perez MD Status: Dispensed Ordered On: 10/02/241932 Start: 10/03/242099 Ordered Dose (Remaining/Total): 30 mg (--/--) Route: subcutaneous Frequency: Daily (for enoxaparin) Ordered Rate/Order Duration: -- / -- Timestamps Action Dose Route / Site Other Information 10/05/241957 Given 30 mg subcutaneous Left Lower Abdomen Performed by: Kristin Land RN Scanned Package: 28078-007-21 ceFAZolin (ANCEF) 2,000 mg/20 mL in sterile water (premix) 2,000 mg [[id number]] Ordering Provider: Wild Perez MD Status: Completed [...] Performed by: Meliza Koch RN Scanned Package: [address]-1 vancomycin 1500 mg/515 mL in sodium chloride 0.9% (premix) 1,500 mg [[id number]] Ordering Provider: Wild Perez MD Status: Completed [...] Performed by: Melia Maria RN Scanned Package: 7372-1035-01 sodium chloride 0.9% bolus 1,000 mL [[id number]] Ordering Provider: Zora Martínez MD Status: Completed [...] Performed by: Alida Larry RN Scanned Package: 5947-5702-64 magnesium sulfate 2 g/50 mL in water (premix) 2 g [[id number]] Ordering Provider: Laura Sheets NP Status: Completed [...] mL in sterile water (premix) 2,000 mg [[id number]] Ordering Provider: Geraldine Leary NP Status: Dispensed [...] Performed by: Skinny Dubose RN Scanned Package: [address]-6 azithromycin (ZITHROMAX) tablet 500 mg [[id number]] Ordering Provider: Geraldine Leary NP Status: Completed (Past End Date/Time) Ordered On: 10/04/24 0850 Starts/Ends: 10/04/24 0930 - 10/06/24 0851 Ordered Dose (Remaining/Total): 500 mg (0/3) Route: oral Frequency: Daily Ordered Rate/Order Duration: -- / -- Timestamps Action Dose Route Other Information 10/06/24850 Given 500 mg oral Performed by: Skinny Dubose RN Scanned Package: [address]-5, [address]-4 acetaminophen (TYLENOL) tablet 1,000 mg [[id number]] Ordering Provider: Geraldine Leary NP Status: Verified Ordered On: 10/05/24 1301 Start: 10/05/24 1315 Ordered Dose (Remaining/Total): 1,000 mg (--/--) Route: oral Frequency: Every 6 hours PRN Ordered Rate/Order Duration: -- / -- (No admins scheduled or recorded for this medication) dexAMETHasone (DECADRON) tablet 4 mg [[id number]] Ordering Provider: Cherry Hwang MD Status: Dispensed Ordered On: 10/05/24 1619 Starts/Ends: 10/05/24 1800 - 10/06/24 1759 Ordered Dose (Remaining/Total): 4 mg (1/4) Route: oral Frequency: Every 6 hours scheduled Ordered Rate/Order Duration: -- / -- Timestamps Action Dose Route Other Information 10/06/24 0512 Given 4 mg oral Performed by: Kay Aaron RN Scanned Package: 29867-702-05 dexAMETHasone (DECADRON) tablet 4 mg [[id number]] Ordering Provider: Cherry Hwang MD Status: Dispensed Ordered On: 10/05/241618 Starts/Ends: 10/06/241799 - 10/07/242158 Ordered Dose (Remaining/Total): 4 mg (3/3) Route: oral Frequency: Every 8 hours scheduled Ordered Rate/Order Duration: -- / -- (No admins scheduled or recorded for this medication) dexAMETHasone (DECADRON) tablet 2 mg [[id number]] Ordering Provider: Cherry Hwang MD Status: Dispensed Ordered On: 10/05/241618 Starts/Ends: 10/07/242199 - 10/08/242158 Ordered Dose (Remaining/Total): 2 mg (3/3) Route: oral Frequency: Every 8 hours scheduled Ordered Rate/Order Duration: -- / -- (No admins scheduled or recorded for this medication) dexAMETHasone (DECADRON) tablet 1 mg [[id number]] Ordering Provider: Cherry Hwang MD Status: Verified Ordered On: 10/05/241618 Starts/Ends: 10/08/242199 - 10/09/242158 Ordered Dose (Remaining/Total): 1 mg (3/3) Route: oral Frequency: Every 8 hours scheduled Ordered Rate/Order Duration: -- / -- (No admins scheduled or recorded for this medication) dexAMETHasone (DECADRON) tablet 1 mg [[id number]] Ordering Provider: Cherry Hwang MD Status: Verified Ordered On: 10/05/241618 Starts/Ends: 10/09/242199 - 10/10/242058 Ordered Dose (Remaining/Total): 1 mg (2/2) Route: oral Frequency: Every 12 hours scheduled Ordered Rate/Order Duration: -- / -- (No admins scheduled or recorded for this medication) dexAMETHasone (DECADRON) tablet 1 mg [[id number]] Ordering Provider: Cherry Hwang MD Status: Verified Ordered On: 10/05/24 1619 Starts/Ends: 10/11/24 0900 - 10/12/24 0859 Ordered Dose (Remaining/Total): 1 mg (11/22) Route: oral Frequency: Daily Ordered Rate/Order Duration: -- / -- (No admins scheduled or recorded for this medication) DER OPERATOR * ECIN Note - Marla Larson RN [...] 10/06/24 0700 - 10/07/24 0659 Total Total 8351-0704 0635-8112 1469-9913 Total 0668-6664 4690-8780 3724-3616 Total Intake (ml) 4486.5 1142.6 20 384 930 2450 120 -- -- 120 Output (ml) 3720 1935 399 039 0517 2500 -- -- -- -- Net (ml) [...] On 10/03 1430 On 10/03 1200 On DER OPERATOR * Plan of Care - Kay Aaron RN - 10/06/2024 3:29 AM MOULDER OPERATOR Goals: Clinical Goals for the Shift: VSS, [...] Understanding discharge needs will improve Outcome: Progressing DER OPERATOR * Provider Query - Tamanna Porras NP [...] RE. Lactic Acidosis. [Updated 2018Oct 16]. In: eoSemi [Internet]. [facility]): Your Tribute; 2019-. Available from: https://www.ncbi.nlm.nih.gov/books/SNH438614/ https://www.LogRhythm/contents/wdihif-tz-yuzkeo-acidosis https://www.Tubis/professional/gyjantbhj-udm-brzvarrqo-disorders/acid -qmqo-mhfkxfoenx-erv-disorders/metabolic-acidosis https://www.Tubis/professional/xgtrxyvmw-iik-nungwngdq-disorders/acid -pkym-syohgtcvga-ibx-disorders/respiratory-acidosis https://www.Tubis/professional/faqccgiql-tbk-nprkohtjp-disorders/acid -ijrg-wzfxfngoxu-rkg-disorders/lactic-acidosis Guide to Clinical Validation, Documentation and Coding, [...] medical record. Respectfully Kannan LA RN CCDS [email or web address] [phone] DER OPERATOR * Plan of Care - Eric Vladez RN - 10/05/2024 7:56 AM CST Goals: [...] Understanding discharge needs will improve Outcome: Ongoing DER OPERATOR * Plan of Care - Leonel Blackwell [...] Understanding discharge needs will improve Outcome: Progressing DER OPERATOR * Plan of Care - Eric Valdez [...] Understanding discharge needs will improve Outcome: Ongoing DER OPERATOR * Provider Query - Tamanna Porras NP [...] and feet bilaterally and arrives to [facility] for posterior lumbar-thoracic spinal fusion with instrumentation [...] Penicillin Streptomycin (high-level) Tetracycline Trimeth/Sulfa Vancomycin References [facility] Antibiogram 2021 [facility] Antibiogram 2021 [facility] Antibiogram 2021 From the ICD-10-CM Coding Guidelines, [...] medical record. Respectfully Kannan LA RN CCDS [email or web address] [phone] DER OPERATOR * Provider Query - Tamnana Porras NP - 10/04/2024 11:30 AM CST [...] and feet bilaterally and arrives to [facility] for posterior lumbar-thoracic spinal fusion with instrumentation [...] 2007 Page: 143 Effective with discharges: August [facility] Information [facility]: Cancer Fatigue From the ICD-10-CM Coding [...] medical record. Respectfully Kannan LA RN CCDS [email or web address] [phone] DER OPERATOR * Initial Assessments - Saturnino Kennedy RN - 10/04/2024 9:35 AM MOULDER OPERATOR CM Initial Assessment Interview Note Information Obtained From: Patient Admission Source: CPAP CAM SC Impression: Patient admitted to [facility] [facility] post operative for T3-5 laminectomy and decompression, arachnoid cyst wall fenestration protocol. Plan Includes: cultural centre manager will monitor for post acute discharge needs such as therapy, nursing, medical equipment or agency referrals as indicated by the care team. Primary Source of Transportation: Does the patient need discharge transport arranged?: No If private car is appropriate at discharge, Reginald Thus [phone] will provide transport at discharge from hospital. Health Insurance Coverage: Medicare A & B, BCBS Federal Prescription Coverage: Yes Pharmacy: [id number] [place], [place] - [facility] [address] AT [address] [facility] [id number] Primary Care Provider: Sj Benson MD Prior to Admission: Functional Status: Minimal assist with ADLs Primary Caregiver: Spouse (Reginald Thus [phone]) Support System: Spouse/Significant Other, Children Home Care Services: No Outpatient Services: No Durable Medical Equipment: Walker (wheeled) Living Arrangements: Spouse/significant other (Reginald Thus [phone]) Type of Residence: Private residence Steps in [...] car is appropriate at discharge, Spouse-Gricelda Delgado [phone] will provide transport at discharge from hospital. [...] Collaboration with Patient, Provider, Direct Care Nurse, Safety Lamp Keeper, and other members of theHealth Care Team to assure needed interventions completed. 2. Return patient to optimal level of self-care post discharge. 3. Advanced Solutions Architect will follow for Discharge Planning - interventions as needed 4. Anticipated level of care at discharge 5. Planned Discharge Disposition Saturnino Kennedy RN DER OPERATOR * Plan of Care - Eric Valdez [...] and optimal renal function maintained Outcome: Ongoing DER OPERATOR * Perioperative Nursing Note - Alida Larry RN - 10/03/2024 11:[address] Martínez with neuro on-call updated with [...] Pt updated on patient and boarding status DER OPERATOR DER OPERATOR DER OPERATOR * Perioperative Nursing Note - Alida Larry RN - 10/03/2024 10:[address] Wayne at bedside to evaluate arterial line DER OPERATOR * Perioperative Nursing Note - Alida Larry RN - 10/03/2024 9:35 AM MOULDER OPERATOR Neuro pager team contacted regarding continued MAP issues. Orders received. DER OPERATOR * Perioperative Nursing Note - Alida Larry RN - 10/03/2024 8:42 AM MOULDER OPERATOR Patient repositioned. Armboard placed to attempt to maintain arterial BP. Line quite positional andvaries with non-invasive pressure. DER OPERATOR * Perioperative Nursing Note - Meliza Koch RN - 10/03/2024 5:26 AM CST Mr. Delgado slept soundly through the night, but was A&O x 4 on waking. His infrastructure tech were 5/5 bilaterally. His plantar flexion improved throughout the night. From 2200 to 0600, his plantar flexion LLE went from 3+/5+ to 5+/5+, and his RLE went from 1+/5+ to 2-3+/5+. His dorsiflexion LLE went from 3+/5+ to 5+/5+, and his RLE remained weak at 1+/5+. Phenylephrine was as high as 0.9mcg/kg/min to sustain MAP goal of >110. DER OPERATOR * Brief Op Note - Wild Perez MD - 10/02/2024 3:26 PM CST Operative Progress Note Surgical Team: Surgeons and Role: * James Robles MD - Primary * Wild Perez MD - Resident - Assisting * Meghan Major DO - Fellow Anesthesiologist: Marimar Carr MD PhD Vein Pumper: Vance Morales MD Nurse Private Duty: Timo Bonilla RN Nurse Private Duty Relief: Gabriela Sullivan RN Scrub Relief: Rae Starr RN Scrub: Joyce Zhou RN Single End Sewer: Dejan Velásquez [facility] Scrub: May Carroll RN DATE OF SURGERY [...] James Robles MD at 10/03/2024 8:13 AM MOULDER OPERATOR DER OPERATOR DER OPERATOR * Op Note - James Robles MD - 10/02/2024 9:18 AM CST Surgeon: James Robles MD [place]: Satish Major DO Preoperative diagnosis: Dorsal arachnoid [...] all critical components of the procedure as assistant program director and participated specifically with the revision laminectomy and intradural arachnoid web/cystic incision and lysis of adhesions. Please note that her expert assistance was necessary given the lack of availability of a qualified resident. DER OPERATOR documented in this encounter Plan of Treatment Pending Results Name Type Priority Associated Diagnoses Date /Time Hepatic function panel Lab Routine 8:12 PM MOULDER OPERATOR Scheduled Orders Name Type Priority Associated Diagnoses Order Schedule Surgical pathology Pathology and Cytology Routine Thoracic myelopathy Release Upon Ordering for 1 Occurrences starting 10/02/2024 Hepatic function panel Lab Routine Once for 1 Occurrences starting 10/13/2024 until 10/13/2024 documented as of this encounter Procedures Procedure Name Priority Date/Time Associated Diagnosis Comments EGFR Routine 10/13/2024 8:12 PM MOULDER OPERATOR PROTIME-INR STAT 10/13/2024 8:12 PM MOULDER OPERATOR CBC WITHOUT DIFFERENTIAL Routine 10/13/2024 8:12 PM MOULDER OPERATOR HEPATIC FUNCTION PANEL Routine 8:12 PM MOULDER OPERATOR BASIC METABOLIC PANEL Routine 10/13/2024 8:12 PM MOULDER OPERATOR PEP THERAPY Routine 10/13/2024 12:00 PM MOULDER OPERATOR US VEIN DUPLEX LOWER EXTREMITY BILATERAL COMPLETE IP Routine 10/13/2024 9:43 AM MOULDER OPERATOR APTT STAT 10/13/2024 6:24 AM MOULDER OPERATOR PEP THERAPY Routine 10/13/2024 6:01 AM MOULDER OPERATOR EGFR Routine 10/12/2024 9:40 PM MOULDER OPERATOR APTT Routine 10/12/2024 9:40 PM MOULDER OPERATOR CBC WITHOUT DIFFERENTIAL Routine 10/12/2024 9:40 PM MOULDER OPERATOR BASIC METABOLIC PANEL Routine 10/12/2024 9:40 PM MOULDER OPERATOR PEP THERAPY Routine 10/12/2024 6:00 PM MOULDER OPERATOR PEP THERAPY Routine 10/12/2024 12:00 PM MOULDER OPERATOR APTT STAT 10/12/2024 6:21 AM MOULDER OPERATOR PEP THERAPY Routine 10/12/2024 6:01 AM MOULDER OPERATOR APTT STAT 10/12/2024 12:54 AM MOULDER OPERATOR EGFR Routine 10/11/2024 9:52 PM MOULDER OPERATOR CBC WITHOUT DIFFERENTIAL Routine 10/11/2024 9:52 PM MOULDER OPERATOR BASIC METABOLIC PANEL Routine 10/11/2024 9:52 PM MOULDER OPERATOR PEP THERAPY Routine 10/11/2024 6:00 PM MOULDER OPERATOR APTT STAT 10/11/2024 5:30 PM MOULDER OPERATOR PEP THERAPY Routine 10/11/2024 12:00 PM MOULDER OPERATOR PEP THERAPY Routine 10/11/2024 6:01 AM MOULDER OPERATOR PEP THERAPY Routine 10/11/2024 12:00 AM MOULDER OPERATOR EGFR Routine 10/10/2024 8:04 PM MOULDER OPERATOR APTT STAT 10/10/2024 8:04 PM MOULDER OPERATOR APTT STAT 10/10/2024 8:04 PM MOULDER OPERATOR PROTIME-INR STAT 10/10/2024 8:04 PM MOULDER OPERATOR CBC WITHOUT DIFFERENTIAL Routine 10/10/2024 8:04 PM MOULDER OPERATOR BASIC METABOLIC PANEL Routine 10/10/2024 8:04 PM MOULDER OPERATOR PEP THERAPY Routine 10/10/2024 12:00 PM MOULDER OPERATOR CBC WITHOUT DIFFERENTIAL STAT 10/10/2024 11:51 AM MOULDER OPERATOR APTT STAT 10/10/2024 11:36 AM MOULDER OPERATOR PROTIME-INR STAT 10/10/2024 11:36 AM MOULDER OPERATOR PEP THERAPY Routine 10/10/2024 6:01 AM MOULDER OPERATOR EGFR Routine 10/10/2024 3:19 AM MOULDER OPERATOR CBC WITHOUT DIFFERENTIAL Routine 10/10/2024 3:19 AM MOULDER OPERATOR BASIC METABOLIC PANEL Routine 10/10/2024 3:19 AM MOULDER OPERATOR PEP THERAPY Routine 10/10/2024 12:00 AM MOULDER OPERATOR POCT GLUCOSE DEVICE Routine 10/09/2024 8 :41 PM MOULDER OPERATOR PEP THERAPY Routine 10/09/2024 6:00 PM MOULDER OPERATOR US VEIN DUPLEX LOWER EXTREMITY BILATERAL COMPLETE ED Urgent/IP Urgent 10/09/2024 10:08 AM MOULDER OPERATOR XR CHEST 1 VIEW IP Routine 10/09/2024 7:55 AM MOULDER OPERATOR PEP THERAPY Routine 10/09/2024 6:01 AM MOULDER OPERATOR PEP THERAPY Routine 10/09/2024 12:00 AM MOULDER OPERATOR EGFR Timed 10/08/2024 10:15 PM MOULDER OPERATOR CBC WITHOUT DIFFERENTIAL Routine 10/08/2024 10:15 PM MOULDER OPERATOR PHOSPHORUS Timed 10/08/2024 10:15 PM MOULDER OPERATOR MAGNESIUM Timed 10/08/2024 10:15 PM MOULDER OPERATOR COMPREHENSIVE METABOLIC PANEL Timed 10/08/2024 10:15 PM MOULDER OPERATOR PEP THERAPY Routine 10/08/2024 6:00 PM MOULDER OPERATOR PEP THERAPY Routine 10/08/2024 12:00 PM MOULDER OPERATOR TROPONIN I HIGH-SENSITIVITY STAT 10/08/2024 11:36 AM MOULDER OPERATOR LACTATE Timed 10/08/2024 8:38 AM MOULDER OPERATOR PEP THERAPY Routine 10/08/2024 6:00 AM MOULDER OPERATOR EGFR Routine 10/07/2024 10:19 PM MOULDER OPERATOR CBC WITHOUT DIFFERENTIAL Routine 10/07/2024 10:19 PM MOULDER OPERATOR BASIC METABOLIC PANEL Routine 10/07/2024 10:19 PM MOULDER OPERATOR LACTATE, WHOLE BLOOD Timed 10/07/2024 9:09 AM MOULDER OPERATOR URINALYSIS AND REFLEX TO MICROSCOPIC AND CULTURE Routine 10/07/2024 5:37 AM MOULDER OPERATOR BLOOD CULTURE STAT 10/07/2024 5:37 AM MOULDER OPERATOR BLOOD CULTURE STAT 10/07/2024 5:37 AM MOULDER OPERATOR URINALYSIS, MICROSCOPIC ONLY Routine 10/07/2024 5:37 AM MOULDER OPERATOR XR CHEST 1 VIEW IP Routine 10/07/2024 5:18 AM MOULDER OPERATOR PEP THERAPY Routine 10/07/2024 12:00 AM MOULDER OPERATOR LACTATE, WHOLE BLOOD Routine 10/06/2024 9:30 PM MOULDER OPERATOR EGFR Routine 10/06/2024 9:16 PM MOULDER OPERATOR CBC WITHOUT DIFFERENTIAL Routine 10/06/2024 9:16 PM MOULDER OPERATOR BASIC METABOLIC PANEL Routine 10/06/2024 9:16 PM MOULDER OPERATOR PEP THERAPY Routine 10/06/2024 6:00 PM MOULDER OPERATOR PEP THERAPY Routine 10/06/2024 12:00 PM MOULDER OPERATOR PEP THERAPY Routine 10/06/2024 6:01 AM MOULDER OPERATOR EGFR Routine 10/05/2024 10:43 PM MOULDER OPERATOR LACTATE, WHOLE BLOOD Routine 10/05/2024 10:43 PM MOULDER OPERATOR CBC WITHOUT DIFFERENTIAL Routine 10/05/2024 10:43 PM MOULDER OPERATOR BASIC METABOLIC PANEL Routine 10/05/2024 10:43 PM MOULDER OPERATOR PEP THERAPY Routine 10/05/2024 6:12 PM MOULDER OPERATOR PEP THERAPY Routine 10/05/2024 6:12 PM MOULDER OPERATOR TROPONIN I HIGH-SENSITIVITY Routine 10/04/2024 8:49 PM MOULDER OPERATOR CALCIUM,IONIZED, WHOLE BLOOD Routine 10/04/2024 8:49 PM MOULDER OPERATOR EGFR Routine 10/04/2024 8:49 PM MOULDER OPERATOR DIFFERENTIAL AUTO Routine 10/04/2024 8:4 9 PM MOULDER OPERATOR CBC WITH AUTO DIFFERENTIAL Routine 10/04/2024 8:49 PM MOULDER OPERATOR LACTATE, WHOLE BLOOD Routine 10/04/2024 8:49 PM MOULDER OPERATOR BASIC METABOLIC PANEL Routine 10/04/2024 8:49 PM MOULDER OPERATOR URINALYSIS AND REFLEX TO MICROSCOPIC AND CULTURE STAT 10/04/2024 1:30 PM MOULDER OPERATOR URINALYSIS, MICROSCOPIC ONLY STAT 10/04/2024 1:30 PM MOULDER OPERATOR LACTATE, WHOLE BLOOD STAT 10/04/2024 12:12 PM MOULDER OPERATOR TROPONIN I HIGH-SENSITIVITY 2-HOUR Timed 10/04/2024 12:06 PM MOULDER OPERATOR INFLUENZA A/B, RSV, AND COVID-19 PCR Routine 10/04/2024 9:06 AM MOULDER OPERATOR TROPONIN I HIGH-SENSITIVITY SERIES (BASELINE, 2HR, 4HR, 6HR) Routine 10/04/2024 9:06 AM MOULDER OPERATOR LACTATE STAT 10/04/2024 9:06 AM MOULDER OPERATOR CRITICAL RESULT CALLBACK CHEMISTRY STAT 10/04/2024 9:06 AM MOULDER OPERATOR EGFR Routine 10/03/2024 10:36 PM MOULDER OPERATOR BASIC METABOLIC PANEL Routine 10/03/2024 10:36 PM MOULDER OPERATOR DIFFERENTIAL AUTO Routine 10/03/2024 8:3 0 PM MOULDER OPERATOR CBC WITH AUTO DIFFERENTIAL Routine 10/03/2024 8:30 PM MOULDER OPERATOR EGFR STAT 10/03/2024 8:25 PM MOULDER OPERATOR BASIC METABOLIC PANEL STAT 10/03/2024 8:25 PM MOULDER OPERATOR ECG 12-LEAD Routine 10/03/2024 2:19 PM MOULDER OPERATOR POCT GLUCOSE DEVICE Routine 10/03/2024 2 :07 PM MOULDER OPERATOR EGFR Routine 10/03/2024 4:58 AM MOULDER OPERATOR DIFFERENTIAL AUTO Routine 10/03/2024 4:5 8 AM MOULDER OPERATOR CBC WITH AUTO DIFFERENTIAL Routine 10/03/2024 4:58 AM MOULDER OPERATOR BASIC METABOLIC PANEL Routine 10/03/2024 4:58 AM MOULDER OPERATOR XR CHEST 1 VIEW IP Routine 10/02/2024 9:08 PM MOULDER OPERATOR EGFR STAT 10/02/2024 4:01 PM MOULDER OPERATOR DIFFERENTIAL AUTO STAT 10/02/2024 4:0 1 PM MOULDER OPERATOR CBC WITH AUTO DIFFERENTIAL STAT 10/02/2024 4:01 PM MOULDER OPERATOR APTT STAT 10/02/2024 4:01 PM MOULDER OPERATOR PROTIME-INR STAT 10/02/2024 4:01 PM MOULDER OPERATOR PHOSPHORUS STAT 10/02/2024 4:01 PM MOULDER OPERATOR MAGNESIUM STAT 10/02/2024 4:01 PM MOULDER OPERATOR COMPREHENSIVE METABOLIC PANEL STAT 10/02/2024 4:01 PM MOULDER OPERATOR POC BLOOD GAS AND CHEMISTRIES, ARTERIAL Routine 10/02/2024 2:30 PM MOULDER OPERATOR FL FLUOROSCOPY < 1 HOUR IP Routine 10/02/2024 2:00 PM MOULDER OPERATOR POC BLOOD GAS AND CHEMISTRIES, ARTERIAL Routine 10/02/2024 10:43 AM MOULDER OPERATOR SPINAL CORD MONITORING 7:29 AM MOULDER OPERATOR Thoracic myelopathy Case Notes [email or web address] Celine via email add Dr. David HEBERT LAMINECTOMY THORACIC DECOMPRESSION 10/02/2024 7:29 AM MOULDER OPERATOR Thoracic myelopathy Case Notes [email or web address] Celine via email add Dr. 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 David HEBERT TYPE AND SCREEN STAT 10/02/2024 6:18 AM MOULDER OPERATOR documented in this encounter Results * (ABNORMAL) Hepatic function panel (10/13/2024 8:12 PM MOULDER OPERATOR) Bilirubin, total 0.2 0.1 - 1.2 mg/dL Bilirubin, direct <0.2 0.1 - 0.3 mg/dL [facility] Protein, pl 5.8(L) 6.5 - 8.5 g/dL [facility] Albumin 3.4(L) 3.5 - 5.0 g/dL [facility] Alk phos 59 40 - 130 Units/L [facility] ALT 28 7 - 55 Units/L [facility] AST 26 10 - 50 Units/L [facility] Comment:Hemolyzed; result ma y be falsely elevated Blood 10/13/2024 8:1 2 PM MOULDER OPERATOR 10/13/2024 8:23 PM MOULDER OPERATOR us James Robles MD LAB BLOOD ORDERABLES Final Resu lt Performing Organization Address City/[facility]/ZIP Co de Phone Number REYNALDO MAHARAJ [facility] [place] [address] * eGFR (10/13/2024 8:12 PM MOULDER OPERATOR) eGFR 60 >=60 mL/min/1. 73 m2 Comment: [...] last reviewed 2021. Blood 10/13/2024 8:12 PM MOULDER OPERATOR 10/13/2024 8:37 PM MOULDER OPERATOR James Robles MD LAB BLOOD ORDERABLES Final Resu lt Performing Organization Address [facility]/ZIP Co de Phone Number REYNALDO [facility] [place] [address] * Protime-INR (10/13/2024 8:12 PM MOULDER OPERATOR) Pathologist [facility] PT 11.5 9.7 - 13.0 sec INR 1.06 0.90 - 1.20 [facility] Comment: Interpretive data Oral anticoagulant therapeutic ranges: Venous thromboembolism prophylaxis or treatment: 2.0-3.0 CARDIOLOGY Standard range: 2.0-3.0 High-intensity range: 2.5-3.5 Refer to indication-specific guidelines for appropriate target ranges for prosthetic heart valve replacement. Current interpretive data was last revised on 2019. Blood 10/13/2024 8:12 PM MOULDER OPERATOR 10/13/2024 8:32 PM MOULDER OPERATOR Narrative [facility] - 10/13/2024 8:38 PM MOULDER OPERATOR Baseline prior to apixaban initiation. Meghan Carranza STAND GRINDER LAB BLOOD ORDERABLES [facility] al Result [facility] [place] [address] * (ABNORMAL) CBC without differential (10/13/2024 8:12 PM MOULDER OPERATOR) Pathologist [facility] WBC 17.1(H) 3.8 - 9.9 K/cumm Hgb 12.1(L) 13.0 - 17.5 g/dL [facility] Hct 37.0(L) 38.9 - 50.3 % [facility] Plt 214 150 - 400 K/cumm [facility] MPV 10.1 9.1 - 12.3 fL [facility] RBC 3.76(L) 4.30 - 5.80 M/cumm [facility] MCV 98.4(H) 81.3 - 96.4 fL [facility] MCH 32.2 27.1 - 33.3 pg [facility] MCHC 32.7 32.3 - 35.7 g/dL [facility] RDW CV 14.6 11.1 - 14.9 % [facility] RDW SD 52.2(H) 35.7 - 48.1 fL [facility] NRBC abs 0.00 0.00 - 0.01 K/cumm [facility] Blood 10/13/2024 8:12 PM MOULDER OPERATOR 10/13/2024 8:26 PM MOULDER OPERATOR us Maria Isabel Unger NP LAB BLOOD ORDERABLES Final Result Performing Organization Address [facility] Phone Number [facility] Department [place] [address] * (ABNORMAL) Basic metabolic panel (10/13/2024 8:12 PM MOULDER OPERATOR) Sodium 140 135 - 145 mmol/L Potassium, pl 4.7 3.3 - 4.9 mmol/L [facility] Comment:Hemolyzed; Potassium value may be falsely elevated by as much as 0.3-0.5 mmol/L. Suggest redraw and reanalysis. Chloride 107 97 - 110 mmol/L [facility] CO2 23 22 - 32 mmol/L [facility] Anion gap 10 2 - 15 mmol/L [facility] BUN 26(H) 6 - 25 mg/dL [facility] Creatinine 1.25 0.80 - 1.30 mg/dL [facility] Glucose 96 70 - 199 mg/dL [facility] Comment: Interpretive Data Fasting glucose >/= [...] 2022. Calcium 8.9 8.5 - 10.3 mg/dL [facility] Blood 10/13/2024 8:12 PM MOULDER OPERATOR 10/13/2024 8:23 PM MOULDER OPERATOR us James Robles MD LAB BLOOD ORDERABLES Final Resu lt [facility] [place] [address] * US Vein Duplex Lower Extremity Bilateral Complete (10/13/2024 9:43 AM MOULDER OPERATOR) Anatomical Region Laterality Modality Vascular Bilateral Ultrasound 10/13/2024 9:05 AM MOULDER OPERATOR Narrative 10/13/2024 1:52 PM MOULDER OPERATOR [facility] - Department of Vascular Surgery, Vascular Laboratory [address] [place] [id number] Lower Extremity Venous Ultrasound Report Patient Name: LILI DELGADO F : 1950 (74y ) Study Date: 10/13/2024 9:05:32 AM Gender: M Tech: Location: [id number] Ref Provider: MEGHAN CARRANZA Quality: Adequate Order [...] thrombus size per hematology - FINDINGS: Performing Filler Shredding Machine Loader: Jessica Aguilar RVT. Right: Duplex scan reveals [...] Tyshawn Mullins MD FACS 10/13/2024 1:52:11 PM MOULDER OPERATOR Procedure Note Tyshawn Mullins MD - 10/13/2024 [facility] - Department of Vascular Surgery,Vascular Laboratory [address] [place] [address] Lower Extremity Venous Ultrasound Report Patient Name: LILI DELGADO F : 1950 (74y ) Study Date: 10/13/2024 9:05:32 AM Gender: M Tech: Location: [id number] Ref Provider: MEGHAN CARRANZA Quality: Adequate Order [...] thrombus size per hematology - FINDINGS: Performing Filler Shredding Machine Loader: Jessica Aguilar RVT. Right: Duplex scan reveals [...] above. Electronically Signed By: Tyshawn Mullins MD [facility] 10/13/2024 1:52:11 PM MOULDER OPERATOR us Meghan Carranza NP IMG US PROCEDURES Final Result * (ABNORMAL) aPTT (10/13/2024 6:24 AM MOULDER OPERATOR) aPTT 55(H) 28 - 38 sec Comment: Interpretive Data Heparin therapeutic range: 66.0 - 100.0 seconds. Range based on correlation with therapeutic heparin activity range of 0.3 - 0.7 Units/mL. Current interpretive data was last revised on 2023. Blood 10/13/2024 6:24 AM MOULDER OPERATOR 10/13/2024 6:52 AM MOULDER OPERATOR Marco JACOBS [facility] - 10/13/2024 7:17 AM MOULDER OPERATOR STAT PTT timing: - Draw 6 hours [...] ORDERABLES Final Resu lt Performing Organization Address City/[facility]/ZIP Co de Phone Number REYNALDO CARSON [facility] [place] [address] * (ABNORMAL) eGFR (10/12/2024 9:40 PM MOULDER OPERATOR) eGFR 49(L) >=60 mL/min/1. 73 m2 Comment: [...] last reviewed 2021. Blood 10/12/2024 9:40 PM MOULDER OPERATOR 10/12/2024 11:24 PM MOULDER OPERATOR James Robles MD LAB BLOOD ORDERABLES Final Resu lt Performing Organization Address City/[facility]/ZIP Co de Phone Number [facility] [place] [address] * (ABNORMAL) aPTT (10/12/2024 9:40 PM MOULDER OPERATOR) [facility] aPTT 57(H) 28 - 38 sec Comment: Interpretive Data Heparin therapeutic range: 66.0 - 100.0 seconds. Range based on correlation with therapeutic heparin activity range of 0.3 - 0.7 Units/mL. Current interpretive data was last revised on 2023. Blood 10/12/2024 9:40 PM MOULDER OPERATOR 10/12/2024 11:26 PM MOULDER OPERATOR Meghan Carranza STAND GRINDER LAB BLOOD ORDERABLES Fin al Result [facility] [place] [address] * (ABNORMAL) CBC without differential (10/12/2024 9:40 PM MOULDER OPERATOR) [facility] WBC 13.9(H) 3.8 - 9.9 K/cumm Hgb 11.4(L) 13.0 - 17.5 g/dL [facility] Hct 35.0(L) 38.9 - 50.3 % [facility] Plt 232 150 - 400 K/cumm [facility] MPV 10.5 9.1 - 12.3 fL [facility] RBC 3.59(L) 4.30 - 5.80 M/cumm [facility] MCV 97.5(H) 81.3 - 96.4 fL [facility] MCH 31.8 27.1 - 33.3 pg [facility] MCHC 32.6 32.3 - 35.7 g/dL [facility] RDW CV 14.6 11.1 - 14.9 % [facility] RDW SD 51.2(H) 35.7 - 48.1 fL [facility] NRBC abs 0.00 0.00 - 0.01 K/cumm [facility] Blood 10/12/2024 9:40 PM MOULDER OPERATOR 10/12/2024 11:24 PM MOULDER OPERATOR us Maria Isabel Unger NP LAB BLOOD ORDERABLES Final Result [facility] [place] [address] * (ABNORMAL) Basic metabolic panel (10/12/2024 9:40 PM MOULDER OPERATOR) [facility] Sodium 144 135 - 145 mmol/L Potassium, pl 4.4 3.3 - 4.9 mmol/L [facility] Chloride 109 97 - 110 mmol/L [facility] CO2 27 22 - 32 mmol/L [facility] Anion gap 8 2 - 15 mmol/L [facility] BUN 28(H) 6 - 25 mg/dL [facility] Creatinine 1.48(H) 0.80 - 1.30 mg/dL [facility] Glucose 110 70 - 199 mg/dL [facility] Comment: Interpretive Data Fasting glucose >/= [...] 2022. Calcium 8.4(L) 8.5 - 10.3 mg/dL [facility] Blood 10/12/2024 9:40 PM MOULDER OPERATOR 10/12/2024 11:24 PM MOULDER OPERATOR us James Robles MD LAB BLOOD ORDERABLES Final Resu lt Performing Organization Address City/[facility]/ZIP Co de Phone Number [facility] [place] [address] * (ABNORMAL) aPTT (10/12/2024 6:21 AM MOULDER OPERATOR) aPTT 51(H) 28 - 38 sec Comment: Interpretive Data Heparin therapeutic range: 66.0 - 100.0 seconds. Range based on correlation with therapeutic heparin activity range of 0.3 - 0.7 Units/mL. Current interpretive data was last revised on 2023. Blood 10/12/2024 6:21 AM MOULDER OPERATOR 10/12/2024 6:49 AM MOULDER OPERATOR Narrative [facility] - 10/12/2024 6:56 AM MOULDER OPERATOR STAT PTT timing: - Draw 6 hours [...] ORDERABLES Final Resu lt REYNALDO MAHARAJ [facility] [place] [address] * (ABNORMAL) aPTT (10/12/2024 12:54 AM MOULDER OPERATOR) aPTT 51(H) 28 - 38 sec Comment: Interpretive Data Heparin therapeutic range: 66.0 - 100.0 seconds. Range based on correlation with therapeutic heparin activity range of 0.3 - 0.7 Units/mL. Current interpretive data was last revised on 2023. Blood 10/12/2024 12:5 4 AM MOULDER OPERATOR 10/12/2024 1:09 AM MOULDER OPERATOR Narrative [facility] - 10/12/2024 1:17 AM MOULDER OPERATOR STAT PTT timing: - Draw 6 hours [...] BLOOD ORDERABLES Final Resu lt [facility] [place] [address] * (ABNORMAL) eGFR (10/11/2024 9:52 PM MOULDER OPERATOR) [facility] eGFR 42(L) >=60 mL/min/1. 73 m2 Comment: [...] last reviewed 2021. Blood 10/11/2024 9:52 PM MOULDER OPERATOR 10/11/2024 11:34 PM MOULDER OPERATOR us James Robles MD LAB BLOOD ORDERABLES Final Resu lt [facility] [place] [address] * (ABNORMAL) CBC without differential (10/11/2024 9:52 PM MOULDER OPERATOR) WBC 15.3(H) 3.8 - 9.9 K/cumm Hgb 10.9(L) 13.0 - 17.5 g/dL [facility] Hct 33.4(L) 38.9 - 50.3 % [facility] Plt 234 150 - 400 K/cumm [facility] MPV 10.4 9.1 - 12.3 fL [facility] RBC 3.47(L) 4.30 - 5.80 M/cumm [facility] MCV 96.3 81.3 - 96.4 fL [facility] MCH 31.4 27.1 - 33.3 pg [facility] MCHC 32.6 32.3 - 35.7 g/dL [facility] RDW CV 14.3 11.1 - 14.9 % [facility] RDW SD 49.6(H) 35.7 - 48.1 fL [facility] NRBC abs 0.00 0.00 - 0.01 K/cumm [facility] Blood 10/11/2024 9:52 PM MOULDER OPERATOR 10/11/2024 11:34 PM MOULDER OPERATOR us Maria Isabel Unger NP LAB BLOOD ORDERABLES Final Result [facility] [place] [address] * (ABNORMAL) Basic metabolic panel (10/11/2024 9:52 PM MOULDER OPERATOR) Sodium 141 135 - 145 mmol/L Potassium, pl 4.6 3.3 - 4.9 mmol/L [facility] Chloride 107 97 - 110 mmol/L [facility] CO2 27 22 - 32 mmol/L [facility] Anion gap 7 2 - 15 mmol/L [facility] BUN 35(H) 6 - 25 mg/dL [facility] Creatinine 1.68(H) 0.80 - 1.30 mg/dL [facility] Glucose 115 70 - 199 mg/dL [facility] Comment: Interpretive Data Fasting glucose >/= [...] 2022. Calcium 8.1(L) 8.5 - 10.3 mg/dL [facility] Blood 10/11/2024 9:52 PM MOULDER OPERATOR 10/11/2024 11:34 PM MOULDER OPERATOR us James Robles MD LAB BLOOD ORDERABLES Final Resu lt [facility] [place] [address] * aPTT (10/11/2024 5:30 PM MOULDER OPERATOR) aPTT 33 28 - 38 sec Comment: Interpretive Data Heparin therapeutic range: 66.0 - 100.0 seconds. Range based on correlation with therapeutic heparin activity range of 0.3 - 0.7 Units/mL. Current interpretive data was last revised on 2023. Blood 10/11/2024 5:30 PM MOULDER OPERATOR 10/11/2024 5:59 PM MOULDER OPERATOR Narrative REYNALDO MAHARAJ - 10/11/2024 6:07 PM MOULDER OPERATOR STAT PTT timing: - Draw 6 hours [...] MD LAB BLOOD ORDERABLES Final Resu lt [facility] [place] [address] * (ABNORMAL) eGFR (10/10/2024 8:04 PM MOULDER OPERATOR) eGFR 45(L) >=60 mL/min/1. 73 m2 Comment: [...] last reviewed 2021. Blood 10/10/2024 8:04 PM MOULDER OPERATOR 10/10/2024 8:34 PM MOULDER OPERATOR Result [facility] James Robles MD LAB BLOOD ORDERABLES Final Resu lt Performing Organization Address [facility] Co de Phone Number [facility] [place] [address] * (ABNORMAL) aPTT (10/10/2024 8:04 PM MOULDER OPERATOR) aPTT 22(L) 28 - 38 sec Comment: Interpretive Data Heparin therapeutic range: 66.0 - 100.0 seconds. Range based on correlation with therapeutic heparin activity range of 0.3 - 0.7 Units/mL. Current interpretive data was last revised on 2023. Blood 10/10/2024 8:04 PM MOULDER OPERATOR 10/10/2024 8:24 PM MOULDER OPERATOR Result [facility] James Robles MD LAB BLOOD ORDERABLES Final Resu lt Performing Organization Address [facility] de Phone Number [facility] [place] [address] * Protime-INR (10/10/2024 8:04 PM MOULDER OPERATOR) PT 12.0 9.7 - 13.0 sec INR 1.11 0.90 - 1.20 [facility] Comment: Interpretive data Oral anticoagulant therapeutic ranges: Venous thromboembolism prophylaxis or treatment: 2.0-3.0 CARDIOLOGY Standard range: 2.0-3.0 High-intensity range: 2.5-3.5 Refer to indication-specific guidelines for appropriate target ranges for prosthetic heart valve replacement. Current interpretive data was last revised on 2019. Blood 10/10/2024 8:04 PM MOULDER OPERATOR 10/10/2024 8:24 PM MOULDER OPERATOR James Robles MD LAB BLOOD ORDERABLES Final Resu lt Performing Organization Address [facility] Co de Phone Number [facility] [place] [address] * (ABNORMAL) aPTT (10/10/2024 8:04 PM MOULDER OPERATOR) Pathologist [facility] aPTT 22(L) 28 - 38 sec Comment: Interpretive Data Heparin therapeutic range: 66.0 - 100.0 seconds. Range based on correlation with therapeutic heparin activity range of 0.3 - 0.7 Units/mL. Current interpretive data was last revised on 2023. Blood 10/10/2024 8:04 PM MOULDER OPERATOR 10/10/2024 8:24 PM MOULDER OPERATOR Narrative [facility] - 10/10/2024 8:33 PM MOULDER OPERATOR STAT PTT timing: - Draw 6 hours [...] ORDERABLES Final Resu lt Performing Organization Address City/[facility]/ZIP Co de Phone Number [facility] [place] [address] * (ABNORMAL) CBC without differential (10/10/2024 8:04 PM MOULDER OPERATOR) Pathologist [facility] WBC 17.1(H) 3.8 - 9.9 K/cumm Hgb 11.6(L) 13.0 - 17.5 g/dL [facility] Hct 34.3(L) 38.9 - 50.3 % [facility] Plt 260 150 - 400 K/cumm [facility] MPV 10.3 9.1 - 12.3 fL [facility] RBC 3.62(L) 4.30 - 5.80 M/cumm [facility] MCV 94.8 81.3 - 96.4 fL [facility] MCH 32.0 27.1 - 33.3 pg [facility] MCHC 33.8 32.3 - 35.7 g/dL [facility] RDW CV 14.2 11.1 - 14.9 % [facility] RDW SD 48.3(H) 35.7 - 48.1 fL [facility] NRBC abs 0.00 0.00 - 0.01 K/cumm [facility] Blood 10/10/2024 8:04 PM MOULDER OPERATOR 10/10/2024 8:34 PM MOULDER OPERATOR Maria Isabel Unger NP LAB BLOOD ORDERABLES Final Result [facility] [place] [address] * (ABNORMAL) Basic metabolic panel (10/10/2024 8:04 PM MOULDER OPERATOR) Sodium 140 135 - 145 mmol/L Potassium, pl 4.6 3.3 - 4.9 mmol/L [facility] Chloride 105 97 - 110 mmol/L [facility] CO2 24 22 - 32 mmol/L [facility] Anion gap 11 2 - 15 mmol/L [facility] BUN 32(H) 6 - 25 mg/dL [facility] Creatinine 1.59(H) 0.80 - 1.30 mg/dL [facility] Glucose 108 70 - 199 mg/dL [facility] Comment: Interpretive Data Fasting glucose >/= [...] 2022. Calcium 8.4(L) 8.5 - 10.3 mg/dL [facility] Blood 10/10/2024 8:04 PM MOULDER OPERATOR 10/10/2024 8:34 PM MOULDER OPERATOR us James Robles MD LAB BLOOD ORDERABLES Final Resu lt [facility] [place] [address] * (ABNORMAL) CBC without differential (10/10/2024 11:51 AM MOULDER OPERATOR) WBC 21.0(H) 3.8 - 9.9 K/cumm Hgb 12.0(L) 13.0 - 17.5 g/dL [facility] Hct 36.7(L) 38.9 - 50.3 % [facility] Plt 272 150 - 400 K/cumm [facility] MPV 10.4 9.1 - 12.3 fL [facility] RBC 3.84(L) 4.30 - 5.80 M/cumm [facility] MCV 95.6 81.3 - 96.4 fL [facility] MCH 31.3 27.1 - 33.3 pg [facility] MCHC 32.7 32.3 - 35.7 g/dL [facility] RDW CV 14.0 11.1 - 14.9 % [facility] RDW SD 47.8 35.7 - 48.1 fL [facility] NRBC abs 0.00 0.00 - 0.01 K/cumm [facility] Blood 10/10/2024 11:5 1 AM MOULDER OPERATOR 10/10/2024 12:26 PM MOULDER OPERATOR Narrative [facility] - 10/10/2024 12:37 PM MOULDER OPERATOR Baseline prior to heparin initiation Result [facility] James Robles MD LAB BLOOD ORDERABLES Final Resu lt Performing Organization Address [facility] Co de Phone Number [facility] [place] [address] * (ABNORMAL) aPTT (10/10/2024 11:36 AM MOULDER OPERATOR) aPTT 23(L) 28 - 38 sec Comment: Interpretive Data Heparin therapeutic range: 66.0 - 100.0 seconds. Range based on correlation with therapeutic heparin activity range of 0.3 - 0.7 Units/mL. Current interpretive data was last revised on 2023. Blood 10/10/2024 11:3 6 AM MOULDER OPERATOR 10/10/2024 11:47 AM MOULDER OPERATOR Narrative [facility] - 10/10/2024 12:16 PM MOULDER OPERATOR Baseline prior to heparin initiation Result [facility] James Robles MD LAB BLOOD ORDERABLES Final Resu lt Performing Organization Address [facility] [place] [address] * Protime-INR (10/10/2024 11:36 AM MOULDER OPERATOR) PT 11.3 9.7 - 13.0 sec INR 1.05 0.90 - 1.20 [facility] Comment: Interpretive data Oral anticoagulant therapeutic ranges: Venous thromboembolism prophylaxis or treatment: 2.0-3.0 CARDIOLOGY Standard range: 2.0-3.0 High-intensity range: 2.5-3.5 Refer to indication-specific guidelines for appropriate target ranges for prosthetic heart valve replacement. Current interpretive data was last revised on 2019. Blood 10/10/2024 11:3 6 AM MOULDER OPERATOR 10/10/2024 11:47 AM MOULDER OPERATOR Narrative [facility] - 10/10/2024 12:16 PM MOULDER OPERATOR Baseline prior to heparin initiation James Robles MD LAB BLOOD ORDERABLES Final Resu lt Performing Organization Address [facility] Co de Phone Number [facility]O [facility] [place] [address] * (ABNORMAL) eGFR (10/10/2024 3:19 AM MOULDER OPERATOR) eGFR 53(L) >=60 mL/min/1. 73 m2 Comment: [...] last reviewed 2021. Blood 10/10/2024 3:19 AM MOULDER OPERATOR 10/10/2024 5:57 AM MOULDER OPERATOR James Robles MD LAB BLOOD ORDERABLES Final Resu lt Performing Organization Address City/[facility]/ZIP Co de Phone Number REYNALDO MAHARAJ [facility] [place] [address] * (ABNORMAL) CBC without differential (10/10/2024 3:19 AM MOULDER OPERATOR) [facility] WBC 18.6(H) 3.8 - 9.9 K/cumm Hgb 11.7(L) 13.0 - 17.5 g/dL [facility] Hct 35.3(L) 38.9 - 50.3 % [facility] Plt 234 150 - 400 K/cumm [facility] MPV 10.4 9.1 - 12.3 fL [facility] RBC 3.69(L) 4.30 - 5.80 M/cumm [facility] MCV 95.7 81.3 - 96.4 fL [facility] MCH 31.7 27.1 - 33.3 pg [facility] MCHC 33.1 32.3 - 35.7 g/dL [facility] RDW CV 14.1 11.1 - 14.9 % [facility] RDW SD 48.1 35.7 - 48.1 fL [facility] NRBC abs 0.00 0.00 - 0.01 K/cumm [facility] Blood 10/10/2024 3:19 AM MOULDER OPERATOR 10/10/2024 6:01 AM MOULDER OPERATOR Maria Isabel Unger NP LAB BLOOD ORDERABLES Final Result [facility] [place] [address] * (ABNORMAL) Basic metabolic panel (10/10/2024 3:19 AM MOULDER OPERATOR) [facility] Sodium 141 135 - 145 mmol/L Potassium, pl 4.2 3.3 - 4.9 mmol/L [facility] Chloride 106 97 - 110 mmol/L [facility] CO2 27 22 - 32 mmol/L [facility] Anion gap 8 2 - 15 mmol/L [facility] BUN 34(H) 6 - 25 mg/dL [facility] Creatinine 1.38(H) 0.80 - 1.30 mg/dL [facility] Glucose 95 70 - 199 mg/dL [facility] Comment: Interpretive Data Fasting glucose >/= [...] 2022. Calcium 8.5 8.5 - 10.3 mg/dL [facility] Blood 10/10/2024 3:19 AM MOULDER OPERATOR 10/10/2024 5:57 AM MOULDER OPERATOR James Robles MD LAB BLOOD ORDERABLES Final Resu lt Performing Organization Address [facility] Co de Phone Number [facility] [place] [address] * POCT glucose (10/09/2024 8:41 PM MOULDER OPERATOR) Glucose, POC 141 70 - 199 mg/dL Blood 10/09/2024 8:41 PM MOULDER OPERATOR 10/09/2024 8:41 PM MOULDER OPERATOR James Robles MD LAB POCT ORDERABLES - DEVICE Fi nal Result Performing Organization Address [facility] Co de Phone Number [facility] [place] [address] * US Vein Duplex Lower Extremity Bilateral Complete (10/09/2024 10:08 AM MOULDER OPERATOR) Anatomical Region Laterality Modality Vascular Bilateral Ultrasound 10/09/2024 9:49 AM MOULDER OPERATOR Narrative 10/09/2024 11:51 AM MOULDER OPERATOR [facility] - Department of Vascular Surgery, Vascular Laboratory [address] [place] [id number] Lower Extremity Venous Ultrasound Report Patient Name: LILI DELGADO F : 1950 (74y ) Study Date: 10/09/2024 9:49:45 AM Gender: M Tech: AL Location: [id number] Ref Provider: OSIRIS GUILLEN ?Quality: Adequate Order [...] Pain in Leg, Right - FINDINGS: Performing Filler Shredding Machine Loader: Niurka Krishna RVT. Right: Duplex scan reveals [...] on the above date to Osiris Guillen STAND GRINDER at 10:06 am. CONCLUSIONS: 1. There is [...] By: Tyshawn Mullins MD FACS 2024-10-09 11:50:17 MOULDER OPERATOR Procedure Note Tyshawn Mullins MD - 10/09/2024 [facility] - Department of Vascular Surgery,Vascular Laboratory [address] [place] [address] Lower Extremity Venous Ultrasound Report Patient Name: LILI DELGADO F : 1950 (74y ) Study Date: 10/09/2024 9:49:45 AM Gender: M Tech: AL Location: [id number] Ref Provider: OSIRIS GUILLEN Quality: Adequate Order [...] Pain in Leg, Right - FINDINGS: Performing Filler Shredding Machine Loader: Niurka Krishna RVT. Right: Duplex scan reveals [...] on the above date to Osiris Guillen STAND GRINDER at 10:06 am. CONCLUSIONS: 1. There is [...] above. Electronically Signed By: Tyshawn Mullins MD [facility] 2024-10-09 11:50:17 MOULDER OPERATOR us Osiris Guillen NP IMG US PROCEDURES Final Result * XR Chest 1 View (10/09/2024 7:55 AM MOULDER OPERATOR) Anatomical Region Laterality Modality Body, Chest N/A Digital Radiogra phy 10/09/2024 1:25 PM MOULDER OPERATOR Impressions 10/09/2024 4:11 PM MOULDER OPERATOR 1. ??Interval increase in left lung base atelectasis. Dictated by: Gabriel Warner M.D. The radiology attending physician has personally reviewed this study, and had reviewed and/or edited this written report and agrees with it. Electronically signed by: Austin Olsen M.D. Narrative 10/09/2024 4:11 PM MOULDER OPERATOR EXAMINATION: 1 view chest radiograph History: 74-year-old [...] Result * (ABNORMAL) eGFR (10/08/2024 10:15 PM MOULDER OPERATOR) eGFR 55(L) >=60 mL/min/1. 73 m2 Comment: [...] reviewed 2021. Blood 10/08/2024 10:1 5 PM MOULDER OPERATOR 10/08/2024 11:56 PM MOULDER OPERATOR us Brianna Martínez STAND GRINDER LAB BLOOD ORDERABLES Cammy l Result [facility] Department [place] [address] * Phosphorus (10/08/2024 10:15 PM MOULDER OPERATOR) Phosphorus, pl 3.1 2.3 - 4.5 mg/dL Blood 10/08/2024 10:1 5 PM MOULDER OPERATOR 10/08/2024 11:56 PM MOULDER OPERATOR Brianna Martínez STAND GRINDER LAB BLOOD ORDERABLES Cammy l Result [facility] [place] [address] * Magnesium (10/08/2024 10:15 PM MOULDER OPERATOR) Pathologist [facility] Magnesium 2.3 1.4 - 2.5 mg/dL Blood 10/08/2024 10:1 5 PM MOULDER OPERATOR 10/08/2024 11:56 PM MOULDER OPERATOR Brianna Martínez STAND GRINDER LAB BLOOD ORDERABLES Cammy l Result Performing Organization Address [facility] de Phone Number [facility] [place] [address] * (ABNORMAL) Comprehensive metabolic panel (10/08/2024 10:15 PM MOULDER OPERATOR) [facility] Sodium 141 135 - 145 mmol/L Potassium, pl 4.6 3.3 - 4.9 mmol/L [facility] Chloride 107 97 - 110 mmol/L [facility] CO2 25 22 - 32 mmol/L [facility] Anion gap 9 2 - 15 mmol/L [facility] BUN 33(H) 6 - 25 mg/dL [facility] Creatinine 1.33(H) 0.80 - 1.30 mg/dL [facility] Glucose 108 70 - 199 mg/dL [facility] Comment: Interpretive Data Fasting glucose >/= [...] 2022. Calcium 8.6 8.5 - 10.3 mg/dL [facility] Bilirubin, total 0.3 0.1 - 1.2 mg/dL [facility] Protein, pl 4.8(L) 6.5 - 8.5 g/dL [facility] Albumin 2.9(L) 3.5 - 5.0 g/dL [facility] Alk phos 49 40 - 130 Units/L [facility] ALT 39 7 - 55 Units/L [facility] AST 19 10 - 50 Units/L [facility] Blood 10/08/2024 10:1 5 PM MOULDER OPERATOR 10/08/2024 11:56 PM MOULDER OPERATOR us Brianna Martínez NP LAB BLOOD ORDERABLES Cammy ramos Result [facility] [place] [address] * (ABNORMAL) CBC without differential (10/08/2024 10:15 PM MOULDER OPERATOR) Pathologist [facility] WBC 19.8(H) 3.8 - 9.9 K/cumm Hgb 11.2(L) 13.0 - 17.5 g/dL [facility] Hct 32.9(L) 38.9 - 50.3 % [facility] Plt 264 150 - 400 K/cumm [facility] MPV 10.5 9.1 - 12.3 fL [facility] RBC 3.57(L) 4.30 - 5.80 M/cumm [facility] MCV 92.2 81.3 - 96.4 fL [facility] MCH 31.4 27.1 - 33.3 pg [facility] MCHC 34.0 32.3 - 35.7 g/dL [facility] RDW CV 13.7 11.1 - 14.9 % [facility] RDW SD 45.1 35.7 - 48.1 fL [facility] NRBC abs 0.02(H) 0.00 - 0.01 K/cumm [facility] Blood 10/08/2024 10:1 5 PM MOULDER OPERATOR 10/08/2024 11:57 PM MOULDER OPERATOR us MariaI sabel Unger STAND GRINDER LAB BLOOD ORDERABLES Final Result Performing Organization Address [facility] de Phone Number [facility] [place] [address] * Troponin I high-sensitivity (10/08/2024 11:36 AM MOULDER OPERATOR) Pathologist [facility] Trop I hs 30 <=35 ng/L Comment: Interpretive Data For further hscTnI resources including the diagnostic algorithm and an aid in interpretation, copy and paste this link: [email or web address].testcatalog.org/show/[email or web address] Current Interpretive Data last revised 2020. Blood 10/08/2024 11:3 6 AM MOULDER OPERATOR 10/08/2024 11:44 AM MOULDER OPERATOR us Brianna Martínez STAND GRINDER LAB BLOOD ORDERABLES Cammy l Result Performing Organization Address [facility] Co de Phone Number REYNALDO [facility] [place] [address] * (ABNORMAL) Lactate (10/08/2024 8:38 AM MOULDER OPERATOR) [facility] Lactate 2.9(H) 0.7 - 2.0 mmol/L Blood 10/08/2024 8:38 AM MOULDER OPERATOR 10/08/2024 11:44 AM MOULDER OPERATOR Brianna Martínez STAND GRINDER LAB BLOOD ORDERABLES Cammy l Result Performing Organization Address [facility] de Phone Number [facility] [place] [address] * eGFR (10/07/2024 10:19 PM MOULDER OPERATOR) [facility] eGFR 62 >=60 mL/min/1. 73 m2 Comment: [...] reviewed 2021. Blood 10/07/2024 10:1 9 PM MOULDER OPERATOR 10/07/2024 11:24 PM MOULDER OPERATOR us James Robles MD LAB BLOOD ORDERABLES Final Resu lt [facility] [place] [address] * (ABNORMAL) CBC without differential (10/07/2024 10:19 PM MOULDER OPERATOR) WBC 17.2(H) 3.8 - 9.9 K/cumm Hgb 11.4(L) 13.0 - 17.5 g/dL [facility] Hct 32.7(L) 38.9 - 50.3 % [facility] Plt 264 150 - 400 K/cumm [facility] MPV 10.6 9.1 - 12.3 fL [facility] RBC 3.58(L) 4.30 - 5.80 M/cumm [facility] MCV 91.3 81.3 - 96.4 fL [facility] MCH 31.8 27.1 - 33.3 pg [facility] MCHC 34.9 32.3 - 35.7 g/dL [facility] RDW CV 13.2 11.1 - 14.9 % [facility] RDW SD 43.6 35.7 - 48.1 fL [facility] NRBC abs 0.00 0.00 - 0.01 K/cumm [facility] Blood 10/07/2024 10:1 9 PM MOULDER OPERATOR 10/07/2024 11:24 PM MOULDER OPERATOR Maria Isabel Unger NP LAB BLOOD ORDERABLES Final Result [facility] [place] [address] * (ABNORMAL) Basic metabolic panel (10/07/2024 10:19 PM MOULDER OPERATOR) Sodium 142 135 - 145 mmol/L Potassium, pl 4.5 3.3 - 4.9 mmol/L [facility] Chloride 107 97 - 110 mmol/L [facility] CO2 26 22 - 32 mmol/L [facility] Anion gap 9 2 - 15 mmol/L [facility] BUN 33(H) 6 - 25 mg/dL [facility] Creatinine 1.21 0.80 - 1.30 mg/dL [facility] Glucose 140 70 - 199 mg/dL [facility] Comment: Interpretive Data Fasting glucose >/= [...] 2022. Calcium 8.5 8.5 - 10.3 mg/dL [facility] Blood 10/07/2024 10:1 9 PM MOULDER OPERATOR 10/07/2024 11:24 PM MOULDER OPERATOR James Robles MD LAB BLOOD ORDERABLES Final Resu lt Performing Organization Address [facility] Co de Phone Number [facility] [place] [address] * (ABNORMAL) Lactate, whole blood (10/07/2024 9:09 AM MOULDER OPERATOR) Lactate, bld 3.4(H) 0.7 - 2.0 mmol/L Blood 10/07/2024 9:09 AM MOULDER OPERATOR 10/07/2024 9:15 AM MOULDER OPERATOR Brianna Martínez NP LAB BLOOD ORDERABLES Cammy l Result Performing Organization Address [facility] Co de Phone Number [facility] [place] [address] * (ABNORMAL) Urinalysis, microscopic only (10/07/2024 5:37 AM MOULDER OPERATOR) WBC, ur 0-5 0 - 5 /HPF RBC, ur 11-20(A) 0 - 2 /HPF [facility] Mucous, ur Present(A) [facility] Culture Reflex Comment Reflex conditions for urine culture (WBC >10) not met. [facility] Urine 10/07/2024 5:37 AM MOULDER OPERATOR 10/07/2024 5:46 AM MOULDER OPERATOR James Robles MD LAB URINE ORDERABLES Final Resu lt Performing Organization Address [facility] Co de Phone Number [facility] [place] [address] * (ABNORMAL) Urinalysis reflex to microscopic and culture Urine (10/07/2024 5:37 AM MOULDER OPERATOR) Color, ur Straw Yellow Clarity, ur Clear Clear [facility] Specific gravity, ur 1.013 1.003 - 1.030 [facility] pH, urine 7.0 [facility] Comment: Interpretive Data ? Urine pH is affected by diet, medications, systemic acid-base disturbances, and renal tubular function. ??pH may affect urinary stone formation. ??For example, urine pH below 6.0 may help reduce the tendency for calcium phosphate stones and pH greater than 6.0 may reduce the tendency for uric acid stone formation. Source: [facility] Current Interpretive Data was last revised on 2017 Protein, ur ql Negative Negative [facility] Glucose, ur ql Negative Negative [facility] Ketones, ur Negative Negative [facility] Bilirubin, ur Negative Negative [facility] Blood, ur Trace(A) Negative [facility] Urobilinogen, ur <2.0 <2.0 mg/dL [facility] Nitrite, ur Negative Negative [facility] Leukocyte esterase, ur Negative Negative [facility] UA reflex comment Reflex to microscopic UA will be performed. [facility] Urine 10/07/2024 5:37 AM MOULDER OPERATOR 10/07/2024 5:46 AM MOULDER OPERATOR James Robles MD LAB MICROBIOLOGY - GENERAL RAYMOND JEFFERY Final Result [facility] [place] [address] * Blood culture Blood (10/07/2024 5:37 AM MOULDER OPERATOR) Report Final Report: No growth Blood 10/07/2024 5:37 AM MOULDER OPERATOR 10/07/2024 7:00 AM MOULDER OPERATOR Narrative [facility] - 10/11/2024 7:00 AM MOULDER OPERATOR Collection->Peripheral 1. ?Blood cultures are incubated for [...] organism identification may be performed using the [employer] Gram-Positive Blood Culture Assay. This assay detects microbial DNA in positive blood culture broth via hybridization of target DNA to capture oligonucleotides on a microarray. This assay has been cleared by the [place] Food and Drug Administration and its performance characteristics have been verified by the [facility] Microbiology Laboratory. 5. ?For questions about this culture, contact the Microbiology Laboratory at [phone]. Interpretive data was last revised on 2020. James Robles MD LAB MICROBIOLOGY - GENERAL RAYMOND JEFFERY Final Result [facility] [place] [address] * Blood culture Blood (10/07/2024 5:37 AM MOULDER OPERATOR) Report Final Report: No growth Blood 10/07/2024 5:37 AM MOULDER OPERATOR 10/07/2024 6:07 AM MOULDER OPERATOR Narrative [facility] - 10/11/2024 7:00 AM MOULDER OPERATOR Collection->Peripheral 1. ?Blood cultures are incubated for [...] organism identification may be performed using the [employer] Gram-Positive Blood Culture Assay. This assay detects microbial DNA in positive blood culture broth via hybridization of target DNA to capture oligonucleotides on a microarray. This assay has been cleared by the [place] Food and Drug Administration and its performance characteristics have been verified by the [facility] Microbiology Laboratory. 5. ?For questions about this culture, contact the Microbiology Laboratory at [phone]. Interpretive data was last revised on 2020. James Robles MD LAB MICROBIOLOGY - GENERAL RAYMOND JEFFERY Final Result [facility] [place] [address] * XR Chest 1 View (10/07/2024 5:18 AM MOULDER OPERATOR) Anatomical Region Laterality Modality Body, Chest N/A Computed Radiogr aphy 10/07/2024 7:05 AM MOULDER OPERATOR Impressions 10/07/2024 7:05 AM MOULDER OPERATOR The current study is compared with the prior radiograph dated ??10/02/2024. ??Spine stimulator is present. ??The heart and mediastinal contours are normal. ??There is no mass or consolidation. There is no lymphadenopathy. ??There are no pleural effusions. ??There is no pneumothorax. There is no interval change. Electronically signed by: Lauren Cantrell M.D. Narrative 10/07/2024 7:05 AM MOULDER OPERATOR EXAMINATION: 1 view chest radiograph Procedure Note [...] (ABNORMAL) Lactate, whole blood (10/06/2024 9:30 PM MOULDER OPERATOR) Lactate, bld 2.7(H) 0.7 - 2.0 mmol/L Blood 10/06/2024 9:30 PM MOULDER OPERATOR 10/06/2024 9:30 PM MOULDER OPERATOR us Tamanna Porras STAND GRINDER LAB BLOOD ORDERABLES Final Resul t [facility] [place] [address] * eGFR (10/06/2024 9:16 PM MOULDER OPERATOR) eGFR 61 >=60 mL/min/1. 73 m2 Comment: [...] last reviewed 2021. Blood 10/06/2024 9:16 PM MOULDER OPERATOR 10/06/2024 9:34 PM MOULDER OPERATOR James Robles MD LAB BLOOD ORDERABLES Final Resu lt Performing Organization Address City/[facility]/ZIP Co de Phone Number [facility] [place] [address] * (ABNORMAL) CBC without differential (10/06/2024 9:16 PM MOULDER OPERATOR) WBC 17.1(H) 3.8 - 9.9 K/cumm Hgb 10.8(L) 13.0 - 17.5 g/dL [facility] Hct 30.7(L) 38.9 - 50.3 % [facility] Plt 256 150 - 400 K/cumm [facility] MPV 10.3 9.1 - 12.3 fL [facility] RBC 3.40(L) 4.30 - 5.80 M/cumm [facility] MCV 90.3 81.3 - 96.4 fL [facility] MCH 31.8 27.1 - 33.3 pg [facility] MCHC 35.2 32.3 - 35.7 g/dL [facility] RDW CV 13.1 11.1 - 14.9 % [facility] RDW SD 43.2 35.7 - 48.1 fL [facility] NRBC abs 0.00 0.00 - 0.01 K/cumm [facility] Blood 10/06/2024 9:16 PM MOULDER OPERATOR 10/06/2024 9:34 PM MOULDER OPERATOR us Maria Isabel Unger NP LAB BLOOD ORDERABLES Final Result Performing Organization Address [facility]/ZIP Co de Phone Number [facility] Department [place] [address] * (ABNORMAL) Basic metabolic panel (10/06/2024 9:16 PM MOULDER OPERATOR) Pathologist [facility] Sodium 140 135 - 145 mmol/L Potassium, pl 4.7 3.3 - 4.9 mmol/L [facility] Chloride 105 97 - 110 mmol/L [facility] CO2 25 22 - 32 mmol/L [facility] Anion gap 10 2 - 15 mmol/L [facility] BUN 32(H) 6 - 25 mg/dL [facility] Creatinine 1.22 0.80 - 1.30 mg/dL [facility] Glucose 152 70 - 199 mg/dL [facility] Comment: Interpretive Data Fasting glucose >/= [...] 2022. Calcium 8.7 8.5 - 10.3 mg/dL [facility] Blood 10/06/2024 9:16 PM MOULDER OPERATOR 10/06/2024 9:34 PM MOULDER OPERATOR us James Robles MD LAB BLOOD ORDERABLES Final Resu lt [facility] [place] [address] * eGFR (10/05/2024 10:43 PM MOULDER OPERATOR) Pathologist [facility] eGFR 67 >=60 mL/min/1. 73 m2 Comment: [...] reviewed 2021. Blood 10/05/2024 10:4 3 PM MOULDER OPERATOR 10/05/2024 11:10 PM MOULDER OPERATOR us James Robles MD LAB BLOOD ORDERABLES Final Resu lt [facility] [place] [address] * (ABNORMAL) CBC without differential (10/05/2024 10:43 PM MOULDER OPERATOR) WBC 16.5(H) 3.8 - 9.9 K/cumm Hgb 10.5(L) 13.0 - 17.5 g/dL [facility] Hct 31.4(L) 38.9 - 50.3 % [facility] Plt 238 150 - 400 K/cumm [facility] MPV 10.7 9.1 - 12.3 fL [facility] RBC 3.37(L) 4.30 - 5.80 M/cumm [facility] MCV 93.2 81.3 - 96.4 fL [facility] MCH 31.2 27.1 - 33.3 pg [facility] MCHC 33.4 32.3 - 35.7 g/dL [facility] RDW CV 13.3 11.1 - 14.9 % [facility] RDW SD 45.3 35.7 - 48.1 fL [facility] NRBC abs 0.00 0.00 - 0.01 K/cumm [facility] Blood 10/05/2024 10:4 3 PM MOULDER OPERATOR 10/05/2024 11:11 PM MOULDER OPERATOR us Maria Isabel Unger STAND GRINDER LAB BLOOD ORDERABLES Final Result Performing Organization Address [facility] Co de Phone Number [facility] [place] [address] * (ABNORMAL) Lactate, whole blood (10/05/2024 10:43 PM MOULDER OPERATOR) [facility] Lactate, bld 2.2(H) 0.7 - 2.0 mmol/L Blood 10/05/2024 10:4 3 PM MOULDER OPERATOR 10/05/2024 11:07 PM MOULDER OPERATOR Tamanna Porras STAND GRINDER LAB BLOOD ORDERABLES Final Resul t Performing Organization Address [facility] de Phone Number [facility] [place] [address] * (ABNORMAL) Basic metabolic panel (10/05/2024 10:43 PM MOULDER OPERATOR) [facility] Sodium 143 135 - 145 mmol/L Potassium, pl 4.4 3.3 - 4.9 mmol/L [facility] Chloride 108 97 - 110 mmol/L [facility] CO2 25 22 - 32 mmol/L [facility] Anion gap 10 2 - 15 mmol/L [facility] BUN 30(H) 6 - 25 mg/dL [facility] Creatinine 1.14 0.80 - 1.30 mg/dL [facility] Glucose 139 70 - 199 mg/dL [facility] Comment: Interpretive Data Fasting glucose >/= [...] REYNALDO MAHARAJ Blood 10/05/2024 10:4 3 PM MOULDER OPERATOR 10/05/2024 11:10 PM MOULDER OPERATOR us James Robles MD LAB BLOOD ORDERABLES Final Resu lt REYNALDO [facility] [place] [address] * (ABNORMAL) eGFR (10/04/2024 8:49 PM MOULDER OPERATOR) eGFR 57(L) >=60 mL/min/1. 73 m2 Comment: [...] last reviewed 2021. Blood 10/04/2024 8:49 PM MOULDER OPERATOR 10/04/2024 9:06 PM MOULDER OPERATOR us James Robles MD LAB BLOOD ORDERABLES Final Resu lt [facility] [place] [address] * (ABNORMAL) Differential, auto (10/04/2024 8:49 PM MOULDER OPERATOR) Neutrophil abs 20.1(H) 1.5 - 6.5 K/cumm Imm gran abs 0.3(H) 0.0 - 0.1 K/cumm [facility] Lymphocyte abs 1.2 0.8 - 3.3 K/cumm [facility] Monocyte abs 1.4(H) 0.2 - 0.8 K/cumm [facility] Eosinophil abs 0.0 0.0 - 0.5 K/cumm [facility] Basophil abs 0.0 0.0 - 0.1 K/cumm [facility] Neutrophil pct 87.4 % [facility] Comment: Consistent with previous result Interpretive Data Percent cell count reference ranges are not reported, since discordance with absolute values may lead to misinterpretation of CBC data. Current Interpretive Data was last revised on 2018. Imm gran pct 1.3 % [facility] Comment: Interpretive Data Percent cell count reference ranges are not reported, since discordance with absolute values may lead to misinterpretation of CBC data. Current Interpretive Data was last revised on 2018. Lymphocyte pct 5.2 % [facility] Comment: Interpretive Data Percent cell count reference ranges are not reported, since discordance with absolute values may lead to misinterpretation of CBC data. Current Interpretive Data was last revised on 2018. Monocyte pct 6.0 % [facility] Comment: Interpretive Data Percent cell count reference ranges are not reported, since discordance with absolute values may lead to misinterpretation of CBC data. Current Interpretive Data was last revised on 2018. Eosinophil pct 0.0 % [facility] Comment: Interpretive Data Percent cell count reference ranges are not reported, since discordance with absolute values may lead to misinterpretation of CBC data. Current Interpretive Data was last revised on 2018. Basophil pct 0.1 % [facility] Comment: Interpretive Data Percent cell count reference ranges are not reported, since discordance with absolute values may lead to misinterpretation of CBC data. Current Interpretive Data was last revised on 2018. Blood 10/04/2024 8:49 PM MOULDER OPERATOR 10/04/2024 9:06 PM MOULDER OPERATOR us James Robles MD LAB BLOOD ORDERABLES Final Resu lt Performing Organization Address [facility] Co de Phone Number [facility] [place] [address] * (ABNORMAL) Lactate, whole blood (10/04/2024 8:49 PM MOULDER OPERATOR) Lactate, bld 2.5(H) 0.7 - 2.0 mmol/L Blood 10/04/2024 8:49 PM MOULDER OPERATOR 10/04/2024 9:00 PM MOULDER OPERATOR us Tamanna Porras NP LAB BLOOD ORDERABLES Final Resul t Performing Organization Address [facility] de Phone Number [facility] [place] [address] * Calcium, ionized, whole blood (10/04/2024 8:49 PM MOULDER OPERATOR) Ca, ionized, bld 5.10 4.50 - 5.10 mg/dL Blood 10/04/2024 8:49 PM MOULDER OPERATOR 10/04/2024 9:00 PM MOULDER OPERATOR Tamanna Porras NP LAB BLOOD ORDERABLES Final Resul t Performing Organization Address [facility]/ZIP Co de Phone Number [facility] [place] [address] * (ABNORMAL) Troponin I high-sensitivity (10/04/2024 8:49 PM MOULDER OPERATOR) [facility] Trop I hs 128(H) <=35 ng/L Comment: Interpretive Data For further [facility] resources including the diagnostic algorithm and an aid in interpretation, copy and paste this link: https://bjhlab.testcatalog.org/show/[email or web address] Current Interpretive Data last revised 2020. Blood 10/04/2024 8:49 PM MOULDER OPERATOR 10/04/2024 9:06 PM MOULDER OPERATOR us Tamanna Porras NP LAB BLOOD ORDERABLES Final Resul t [facility] [place] [address] * (ABNORMAL) CBC with auto differential (10/04/2024 8:49 PM MOULDER OPERATOR) [facility] WBC 23.0(H) 3.8 - 9.9 K/cumm Hgb 10.5(L) 13.0 - 17.5 g/dL [facility] Hct 31.0(L) 38.9 - 50.3 % [facility] Plt 207 150 - 400 K/cumm [facility] MPV 10.2 9.1 - 12.3 fL [facility] RBC 3.34(L) 4.30 - 5.80 M/cumm [facility] MCV 92.8 81.3 - 96.4 fL [facility] MCH 31.4 27.1 - 33.3 pg [facility] MCHC 33.9 32.3 - 35.7 g/dL [facility] RDW CV 13.6 11.1 - 14.9 % [facility] RDW SD 45.7 35.7 - 48.1 fL [facility] NRBC abs 0.00 0.00 - 0.01 K/cumm [facility] Blood 10/04/2024 8:49 PM MOULDER OPERATOR 10/04/2024 9:06 PM MOULDER OPERATOR James Robles MD LAB BLOOD ORDERABLES Final Resu lt [facility] [place] [address] * (ABNORMAL) Basic metabolic panel (10/04/2024 8:49 PM MOULDER OPERATOR) Pathologist [facility] Sodium 144 135 - 145 mmol/L Potassium, pl 4.4 3.3 - 4.9 mmol/L [facility] Chloride 113(H) 97 - 110 mmol/L [facility] CO2 22 22 - 32 mmol/L [facility] Anion gap 9 2 - 15 mmol/L [facility] BUN 24 6 - 25 mg/dL [facility] Creatinine 1.30 0.80 - 1.30 mg/dL [facility] Glucose 168 70 - 199 mg/dL [facility] Comment: Interpretive Data Fasting glucose >/= [...] 2022. Calcium 8.4(L) 8.5 - 10.3 mg/dL [facility] Blood 10/04/2024 8:49 PM MOULDER OPERATOR 10/04/2024 9:06 PM MOULDER OPERATOR James Robles MD LAB BLOOD ORDERABLES Final Resu lt Performing Organization Address [facility]/ZIP Co de Phone Number [facility] [place] [address] * (ABNORMAL) Urinalysis, microscopic only (10/04/2024 1:30 PM MOULDER OPERATOR) WBC, ur 0-5 0 - 5 /HPF RBC, ur >50(A) 0 - 2 /HPF [facility] Epithelial cells, squamous, ur 1-5 0 - 5 /HPF [facility] Mucous, ur Present(A) [facility] Culture Reflex Comment Reflex conditions for urine culture (WBC >10) not met. [facility] Urine 10/04/2024 1:3 0 PM MOULDER OPERATOR 10/04/2024 4:15 PM MOULDER OPERATOR us Tamanna Porras NP LAB URINE ORDERABLES Final Resul t [facility] [place] [address] * (ABNORMAL) Urinalysis reflex to microscopic and culture Urine (10/04/2024 1:30 PM MOULDER OPERATOR) Color, ur Straw Yellow Clarity, ur Clear Clear [facility] Specific gravity, ur 1.028 1.003 - 1.030 [facility] pH, urine 6.0 [facility] Comment: Interpretive Data ? Urine pH is affected by diet, medications, systemic acid-base disturbances, and renal tubular function. ??pH may affect urinary stone formation. ??For example, urine pH below 6.0 may help reduce the tendency for calcium phosphate stones and pH greater than 6.0 may reduce the tendency for uric acid stone formation. Source: [facility]inder Current Interpretive Data was last revised on 2017 Protein, ur ql 1+(A) Negative [facility] Glucose, ur ql Negative Negative [facility] Ketones, ur Negative Negative [facility] Bilirubin, ur Negative Negative [facility] Blood, ur 3+(A) Negative [facility] Urobilinogen, ur <2.0 <2.0 mg/dL [facility] Nitrite, ur Negative Negative [facility] Leukocyte esterase, ur Negative Negative [facility] UA reflex comment Reflex to microscopic UA will be performed. [facility] Urine 10/04/2024 1:30 PM MOULDER OPERATOR 10/04/2024 4:16 PM MOULDER OPERATOR Tamanna Porars NP LAB MICROBIOLOGY - GENERAL ORDER TALYA Final Result Performing Organization Address City/[facility] Co de Phone Number [facility] [place] [address] * (ABNORMAL) Lactate, whole blood (10/04/2024 12:12 PM MOULDER OPERATOR) Lactate, bld 3.7(H) 0.7 - 2.0 mmol/L Blood 10/04/2024 12:1 2 PM MOULDER OPERATOR 10/04/2024 12:22 PM MOULDER OPERATOR Tamanna Porras NP LAB BLOOD ORDERABLES Final Resul t Performing Organization Address [facility] de Phone Number [facility] [place] [address] * (ABNORMAL) Troponin I high-sensitivity 2-hour (10/04/2024 12:06 PM MOULDER OPERATOR) Trop I hs 132(H) <=35 ng/L Comment: Interpretive Data For further hscTnI resources including the diagnostic algorithm and an aid in interpretation, copy and paste this link: https://bjhlab.testcatalog.org/show/[email or web address] Current Interpretive Data last revised 2020. Trop I hs pct delta -9 % [facility] Trop I hs interp Equivocal [facility] Blood 10/04/2024 12:0 6 PM MOULDER OPERATOR 10/04/2024 12:30 PM MOULDER OPERATOR Geraldine Leary STAND GRINDER LAB BLOOD ORDERABLES Final Result Performing Organization Address [facility] Co de Phone Number [facility] [place] [address] * Critical Result Callback Chemistry (10/04/2024 9:06 AM MOULDER OPERATOR) Date Notified [id number] Time Notified 1024 [facility] TestName Lactate REYNALDO MAHARAJ Called/Read Back Arin JACOBS [facility] Credentials RN REYNALDO [facility] Called By NEAL MAHARAJ Blood 10/04/2024 9:06 AM MOULDER OPERATOR 10/04/2024 9:58 AM MOULDER OPERATOR Geraldine Leary NP LAB BLOOD ORDERABLES Final Result Performing Organization Address [facility] Co de Phone Number [facility] [place] [address] * (ABNORMAL) Troponin I high-sensitivity series (baseline, 2hr, 4hr, 6hr) (10/04/2024 9:06 AM MOULDER OPERATOR) Pathologist [facility] Trop I hs 145(H) <=35 ng/L Comment: Interpretive Data For further hscTnI resources including the diagnostic algorithm and an aid in interpretation, copy and paste this link: https://bjhlab.testcatalog.org/show/[email or web address] Current Interpretive Data last revised 2020. Blood 10/04/2024 9:06 AM MOULDER OPERATOR 10/04/2024 9:58 AM MOULDER OPERATOR Geraldine Leary NP LAB BLOOD ORDERABLES Final Result Performing Organization Address [facility] de Phone Number [facility] [place] [address] * (ABNORMAL) Lactate (10/04/2024 9:06 AM MOULDER OPERATOR) Pathologist [facility] Lactate 4.1(C) 0.7 - 2.0 mmol/L Blood 10/04/2024 9:06 AM MOULDER OPERATOR 10/04/2024 9:58 AM MOULDER OPERATOR Geraldine Leary NP LAB BLOOD ORDERABLES Final Result Performing Organization Address [facility]/State/ZIP Co de Phone Number [facility] [place] [address] * Influenza A/B, RSV, and COVID-19 PCR Nasopharyngeal (10/04/2024 9:06 AM MOULDER OPERATOR) [facility] COVID-19 RNA Negative Negative [facility] Influenza A RNA Negative Negative [facility] Influenza B RNA Negative Negative [facility] RSV RNA Negative Negative [facility] Comment: Interpretive data: Testing performed by [facility] ([phone]). This test is performed using the SIMI Xpert Xpress CoV-2/Flu/RSV plus assay. This is a multiplex, real-time reverse transcriptase PCR assay intended for the qualitative detection of nucleic acid from SARS-CoV-2, influenza A, influenza B, and respiratory syncytial virus. This assay has been cleared by the [place] Food and Drug administration. The performance characteristics have been verified by the [facility]. ??Results must be considered in the clinical context, and a negative result does not rule out infection. Interpretive Data last revised 2023 Nasopharyngeal 10/04/2024 9: 06 AM MOULDER OPERATOR 10/04/2024 10:22 AM MOULDER OPERATOR Narrative [facility] - 10/04/2024 11:17 AM MOULDER OPERATOR Is the Patient experiencing symptoms consistent with COVID?->Unknown Geraldine Leary NP LAB MICROBIOLOGY - [facility] ORDERABLES Final Result Performing Organization Address City/State/[facility] Co de Phone Number [facility] [place] [address] [facility] * eGFR (10/03/2024 10:36 PM MOULDER OPERATOR) [facility] eGFR 61 >=60 mL/min/1. 73 m2 Comment: [...] reviewed 2021. Blood 10/03/2024 10:3 6 PM MOULDER OPERATOR 10/03/2024 10:52 PM MOULDER OPERATOR us James Robles MD LAB BLOOD ORDERABLES Final Resu lt [facility] [place] [address] * (ABNORMAL) Basic metabolic panel (10/03/2024 10:36 PM MOULDER OPERATOR) Pathologist [facility] Sodium 142 135 - 145 mmol/L Potassium, pl 4.4 3.3 - 4.9 mmol/L [facility] Chloride 113(H) 97 - 110 mmol/L [facility] CO2 22 22 - 32 mmol/L [facility] Anion gap 7 2 - 15 mmol/L [facility] BUN 17 6 - 25 mg/dL [facility] Creatinine 1.23 0.80 - 1.30 mg/dL [facility] Glucose 162 70 - 199 mg/dL [facility] Comment: Interpretive Data Fasting glucose >/= [...] 2022. Calcium 8.1(L) 8.5 - 10.3 mg/dL [facility] Blood 10/03/2024 10:3 6 PM MOULDER OPERATOR 10/03/2024 10:52 PM MOULDER OPERATOR us James Robles MD LAB BLOOD ORDERABLES Final Resu lt [facility] [place] [address] * (ABNORMAL) Differential, auto (10/03/2024 8:30 PM MOULDER OPERATOR) Pathologist [facility] Neutrophil abs 22.7(H) 1.5 - 6.5 K/cumm Imm gran abs 0.3(H) 0.0 - 0.1 K/cumm [facility] Lymphocyte abs 1.2 0.8 - 3.3 K/cumm [facility] Monocyte abs 2.1(H) 0.2 - 0.8 K/cumm [facility] Eosinophil abs 0.0 0.0 - 0.5 K/cumm [facility] Basophil abs 0.0 0.0 - 0.1 K/cumm [facility] Neutrophil pct 86.2 % [facility] Comment: Consistent with previous result Interpretive Data Percent cell count reference ranges are not reported, since discordance with absolute values may lead to misinterpretation of CBC data. Current Interpretive Data was last revised on 2018. Imm gran pct 1.1 % [facility] Comment: Interpretive Data Percent cell count reference ranges are not reported, since discordance with absolute values may lead to misinterpretation of CBC data. Current Interpretive Data was last revised on 2018. Lymphocyte pct 4.6 % [facility] Comment: Interpretive Data Percent cell count reference ranges are not reported, since discordance with absolute values may lead to misinterpretation of CBC data. Current Interpretive Data was last revised on 2018. Monocyte pct 8.0 % [facility] Comment: Interpretive Data Percent cell count reference ranges are not reported, since discordance with absolute values may lead to misinterpretation of CBC data. Current Interpretive Data was last revised on 2018. Eosinophil pct 0.0 % [facility] Comment: Interpretive Data Percent cell count reference ranges are not reported, since discordance with absolute values may lead to misinterpretation of CBC data. Current Interpretive Data was last revised on 2018. Basophil pct 0.1 % [facility] Comment: Interpretive Data Percent cell count reference ranges are not reported, since discordance with absolute values may lead to misinterpretation of CBC data. Current Interpretive Data was last revised on 2018. Blood 10/03/2024 8:30 PM MOULDER OPERATOR 10/03/2024 9:05 PM MOULDER OPERATOR us James Robles MD LAB BLOOD ORDERABLES Final Resu lt [facility] [place] [address] * (ABNORMAL) CBC with auto differential (10/03/2024 8:30 PM MOULDER OPERATOR) WBC 26.3(H) 3.8 - 9.9 K/cumm Hgb 11.3(L) 13.0 - 17.5 g/dL [facility] Hct 33.7(L) 38.9 - 50.3 % [facility] Plt 302 150 - 400 K/cumm [facility] MPV 10.4 9.1 - 12.3 fL [facility] RBC 3.61(L) 4.30 - 5.80 M/cumm [facility] MCV 93.4 81.3 - 96.4 fL [facility] MCH 31.3 27.1 - 33.3 pg [facility] MCHC 33.5 32.3 - 35.7 g/dL [facility] RDW CV 13.2 11.1 - 14.9 % [facility] RDW SD 45.1 35.7 - 48.1 fL [facility] NRBC abs 0.00 0.00 - 0.01 K/cumm [facility] Blood 10/03/2024 8:30 PM MOULDER OPERATOR 10/03/2024 9:05 PM MOULDER OPERATOR us James Robles MD LAB BLOOD ORDERABLES Final Resu lt [facility] [place] [address] * eGFR (10/03/2024 8:25 PM MOULDER OPERATOR) eGFR 60 >=60 mL/min/1. 73 m2 Comment: [...] last reviewed 2021. Blood 10/03/2024 8:25 PM MOULDER OPERATOR 10/03/2024 9:05 PM MOULDER OPERATOR James Robles MD LAB BLOOD ORDERABLES Final Resu lt [facility] [place] [address] * (ABNORMAL) Basic metabolic panel (10/03/2024 8:25 PM MOULDER OPERATOR) Pathologist [facility] Sodium 143 135 - 145 mmol/L Potassium, pl 4.1 3.3 - 4.9 mmol/L [facility] Chloride 113(H) 97 - 110 mmol/L [facility] CO2 20(L) 22 - 32 mmol/L [facility] Anion gap 10 2 - 15 mmol/L [facility] BUN 17 6 - 25 mg/dL [facility] Creatinine 1.25 0.80 - 1.30 mg/dL [facility] Glucose 163 70 - 199 mg/dL [facility] Comment: Interpretive Data Fasting glucose >/= [...] 2022. Calcium 8.0(L) 8.5 - 10.3 mg/dL [facility] Blood 10/03/2024 8:25 PM MOULDER OPERATOR 10/03/2024 9:05 PM MOULDER OPERATOR James Robles MD LAB BLOOD ORDERABLES Final Resu lt Performing Organization Address City/[facility]/ZIP Co de Phone Number [facility] [place] [address] * ECG 12 lead (10/03/2024 2:19 PM MOULDER OPERATOR) [facility] Ventricular Rate EKG/Min 96 BPM [facility] Atrial Rate 96 BPM [facility] W[place]-Interval (MSEC) 242 ms [facility] QRS-Interval (MSEC) 110 ms [facility] QT-Interval (MSEC) 364 ms [facility] QTc 459 ms [facility] P [place] 69 degrees [facility] R [place] 76 degrees [facility] T [place] 1 degrees [facility] Diagnosis Sinus rhythm with 1st degree A-V block Nonspecific ST and T wave abnormality Abnormal ECG When compared with ECG of 10-MAY-2008 09:35, [place] interval has increased Vent. rate has increased BY ??35 BPM Non-specific change in ST segment in Inferior leads ST now depressed in Anterolateral leads Nonspecific T wave abnormality now evident in Inferior leads QT has lengthened Confirmed by JACOBO CARSON M.D ([id number]) on 10/04/2024 10:42:26 AM [facility] 10/03/2024 2:19 PM MOULDER OPERATOR 10/04/2024 10:42 AM MOULDER OPERATOR James Robles MD ECG ORDERABLES Final Result [facility] * POCT glucose (10/03/2024 2:07 PM MOULDER OPERATOR) [facility] Glucose, POC 128 70 - 199 mg/dL Blood 10/03/2024 2:07 PM MOULDER OPERATOR 10/03/2024 2:07 PM MOULDER OPERATOR James Robles MD LAB POCT ORDERABLES - DEVICE Fi nal Result [facility] Department [place] [address] * (ABNORMAL) eGFR (10/03/2024 4:58 AM MOULDER OPERATOR) [facility] eGFR 57(L) >=60 mL/min/1. 73 m2 Comment: [...] last reviewed 2021. Blood 10/03/2024 4:58 AM MOULDER OPERATOR 10/03/2024 5:32 AM MOULDER OPERATOR us James Robles MD LAB BLOOD ORDERABLES Final Resu lt [facility] [place] [address] * (ABNORMAL) Differential, auto (10/03/2024 4:58 AM MOULDER OPERATOR) Pathologist [facility] Neutrophil abs 28.0(H) 1.5 - 6.5 K/cumm Imm gran abs 0.2(H) 0.0 - 0.1 K/cumm [facility] Lymphocyte abs 0.9 0.8 - 3.3 K/cumm [facility] Monocyte abs 1.5(H) 0.2 - 0.8 K/cumm [facility] Eosinophil abs 0.0 0.0 - 0.5 K/cumm [facility] Basophil abs 0.1 0.0 - 0.1 K/cumm [facility] Neutrophil pct 91.6 % [facility] Comment: Interpretive Data Percent cell count reference ranges are not reported, since discordance with absolute values may lead to misinterpretation of CBC data. Current Interpretive Data was last revised on 2018. Imm gran pct 0.6 % [facility] Comment: Interpretive Data Percent cell count reference ranges are not reported, since discordance with absolute values may lead to misinterpretation of CBC data. Current Interpretive Data was last revised on 2018. Lymphocyte pct 2.8 % [facility] Comment: Interpretive Data Percent cell count reference ranges are not reported, since discordance with absolute values may lead to misinterpretation of CBC data. Current Interpretive Data was last revised on 2018. Monocyte pct 4.8 % [facility] Comment: Interpretive Data Percent cell count reference ranges are not reported, since discordance with absolute values may lead to misinterpretation of CBC data. Current Interpretive Data was last revised on 2018. Eosinophil pct 0.0 % [facility] Comment: Interpretive Data Percent cell count reference ranges are not reported, since discordance with absolute values may lead to misinterpretation of CBC data. Current Interpretive Data was last revised on 2018. Basophil pct 0.2 % [facility] Comment: Interpretive Data Percent cell count reference ranges are not reported, since discordance with absolute values may lead to misinterpretation of CBC data. Current Interpretive Data was last revised on 2018. Blood 10/03/2024 4:58 AM MOULDER OPERATOR 10/03/2024 5:32 AM MOULDER OPERATOR us James Robles MD LAB BLOOD ORDERABLES Final Resu lt [facility] Department of Laboratories [place], [place] [id number] * (ABNORMAL) Basic metabolic panel (10/03/2024 4:58 AM MOULDER OPERATOR) Sodium 143 135 - 145 mmol/L Potassium, pl 4.7 3.3 - 4.9 mmol/L [facility] Chloride 111(H) 97 - 110 mmol/L [facility] CO2 22 22 - 32 mmol/L [facility] Anion gap 10 2 - 15 mmol/L [facility] BUN 14 6 - 25 mg/dL [facility] Creatinine 1.29 0.80 - 1.30 mg/dL [facility] Glucose 146 70 - 199 mg/dL [facility] Comment: Interpretive Data Fasting glucose >/= [...] 2022. Calcium 8.3(L) 8.5 - 10.3 mg/dL [facility] Blood 10/03/2024 4:58 AM MOULDER OPERATOR 10/03/2024 5:32 AM MOULDER OPERATOR us James Robles MD LAB BLOOD ORDERABLES Final Resu lt [facility] [place] [address] * (ABNORMAL) CBC with auto differential (10/03/2024 4:58 AM MOULDER OPERATOR) WBC 30.5(H) 3.8 - 9.9 K/cumm Hgb 13.0 13.0 - 17.5 g/dL [facility] Hct 38.0(L) 38.9 - 50.3 % [facility] Plt 346 150 - 400 K/cumm [facility] MPV 10.2 9.1 - 12.3 fL [facility] RBC 4.14(L) 4.30 - 5.80 M/cumm [facility] MCV 91.8 81.3 - 96.4 fL [facility] MCH 31.4 27.1 - 33.3 pg [facility] MCHC 34.2 32.3 - 35.7 g/dL [facility] RDW CV 12.9 11.1 - 14.9 % [facility] RDW SD 43.0 35.7 - 48.1 fL [facility] NRBC abs 0.00 0.00 - 0.01 K/cumm [facility] Blood 10/03/2024 4:58 AM MOULDER OPERATOR 10/03/2024 5:32 AM MOULDER OPERATOR us James Robles MD LAB BLOOD ORDERABLES Final Resu lt [facility] [place] [address] * XR chest 1 view (Portable) (10/02/2024 9:08 PM MOULDER OPERATOR) Anatomical Region Laterality Modality Body, Chest N/A Computed Radiogr aphy 10/03/2024 8:28 AM MOULDER OPERATOR Impressions 10/03/2024 4:05 PM MOULDER OPERATOR No priors available for comparison. Spinal stimulator overlies the midthoracic spine. Ill-defined airspace opacity predominantly in the left mid and upper lung as well as right midlung which may be due to aspiration and/or pneumonia. ??No pleural effusion or pneumothorax. ??Cardiomediastinal silhouette is normal accounting for rotation. Dictated by: Neftayl Le MD The radiology attending physician has personally reviewed this study, and had reviewed and/or edited this written report and agrees with it. Electronically signed by: Saturnino James MD, PHD Narrative 10/03/2024 4:05 PM MOULDER OPERATOR EXAMINATION: 1 view chest radiograph Procedure Note [...] Result * (ABNORMAL) eGFR (10/02/2024 4:01 PM MOULDER OPERATOR) eGFR 57(L) >=60 mL/min/1. 73 m2 Comment: [...] last reviewed 2021. Blood 10/02/2024 4:01 PM MOULDER OPERATOR 10/02/2024 4:17 PM MOULDER OPERATOR James Robles MD LAB BLOOD ORDERABLES Final Resu lt [facility] [place] [address] * (ABNORMAL) Differential, auto (10/02/2024 4:01 PM MOULDER OPERATOR) Neutrophil abs 14.1(H) 1.5 - 6.5 K/cumm [...] 2018. Imm gran pct 0.7 % [facility] Comment: Interpretive Data Percent cell count reference ranges are not reported, since discordance with absolute values may lead to misinterpretation of CBC data. Current Interpretive Data was last revised on 2018. Lymphocyte pct 8.0 % [facility] Comment: Interpretive Data Percent cell count [...] on 2018. Eosinophil pct 0.2 % [facility] Comment: Interpretive Data Percent cell count [...] revised on 2018. Blood 10/02/2024 4:01 PM MOULDER OPERATOR 10/02/2024 4:17 PM MOULDER OPERATOR James Robles MD LAB BLOOD ORDERABLES Final Resu lt Performing Organization Address [facility] Co de Phone Number [facility] [place] [address] * Protime-INR (10/02/2024 4:01 PM MOULDER OPERATOR) PT 12.4 9.7 - 13.0 sec INR 1.14 0.90 - 1.20 [facility] Comment: Interpretive data Oral anticoagulant therapeutic ranges: Venous thromboembolism prophylaxis or treatment: 2.0-3.0 CARDIOLOGY Standard range: 2.0-3.0 High-intensity range: 2.5-3.5 Refer to indication-specific guidelines for appropriate target ranges for prosthetic heart valve replacement. Current interpretive data was last revised on 2019. Blood 10/02/2024 4:01 PM MOULDER OPERATOR 10/02/2024 4:16 PM MOULDER OPERATOR James Robles MD LAB BLOOD ORDERABLES Final Resu lt Performing Organization Address [facility] de Phone Number [facility] [place] [address] * (ABNORMAL) aPTT (10/02/2024 4:01 PM MOULDER OPERATOR) aPTT 27(L) 28 - 38 sec Comment: Interpretive Data Heparin therapeutic range: 66.0 - 100.0 seconds. Range based on correlation with therapeutic heparin activity range of 0.3 - 0.7 Units/mL. Current interpretive data was last revised on 2023. Blood 10/02/2024 4:01 PM MOULDER OPERATOR 10/02/2024 4:16 PM MOULDER OPERATOR James Robles MD LAB BLOOD ORDERABLES Final Resu lt Performing Organization Address [facility] Co de Phone Number [facility] Department [place] [address] * (ABNORMAL) CBC with auto differential (10/02/2024 4:01 PM MOULDER OPERATOR) Pathologist [facility] WBC 16.3(H) 3.8 - 9.9 K/cumm Hgb 12.7(L) 13.0 - 17.5 g/dL [facility] Hct 38.7(L) 38.9 - 50.3 % [facility] Plt 255 150 - 400 K/cumm [facility] MPV 9.8 9.1 - 12.3 fL [facility] RBC 4.10(L) 4.30 - 5.80 M/cumm [facility] MCV 94.4 81.3 - 96.4 fL [facility] MCH 31.0 27.1 - 33.3 pg [facility] MCHC 32.8 32.3 - 35.7 g/dL [facility] RDW CV 12.9 11.1 - 14.9 % [facility] RDW SD 44.5 35.7 - 48.1 fL [facility] NRBC abs 0.00 0.00 - 0.01 K/cumm [facility] Blood 10/02/2024 4:01 PM MOULDER OPERATOR 10/02/2024 4:17 PM MOULDER OPERATOR us James Robles MD LAB BLOOD ORDERABLES Final Resu lt [facility] [place] [address] * Phosphorus (10/02/2024 4:01 PM MOULDER OPERATOR) Pathologist [facility] Phosphorus, pl 2.4 2.3 - 4.5 mg/dL Blood 10/02/2024 4:01 PM MOULDER OPERATOR 10/02/2024 4:17 PM MOULDER OPERATOR James Robles MD LAB BLOOD ORDERABLES Final Resu lt [facility] [place] [address] * Magnesium (10/02/2024 4:01 PM MOULDER OPERATOR) Pathologist [facility] Magnesium 1.9 1.4 - 2.5 mg/dL Blood 10/02/2024 4:01 PM MOULDER OPERATOR 10/02/2024 4:17 PM MOULDER OPERATOR James Robles MD LAB BLOOD ORDERABLES Final Resu lt [facility] [place] [address] * (ABNORMAL) Comprehensive metabolic panel (10/02/2024 4:01 PM MOULDER OPERATOR) Pathologist [facility] Sodium 141 135 - 145 mmol/L Potassium, pl 4.2 3.3 - 4.9 mmol/L [facility] Chloride 112(H) 97 - 110 mmol/L [facility] CO2 22 22 - 32 mmol/L [facility] Anion gap 7 2 - 15 mmol/L [facility] BUN 16 6 - 25 mg/dL [facility] Creatinine 1.30 0.80 - 1.30 mg/dL [facility] Glucose 118 70 - 199 mg/dL [facility] Comment: Interpretive Data Fasting glucose >/= [...] 2022. Calcium 8.3(L) 8.5 - 10.3 mg/dL [facility] Bilirubin, total 0.2 0.1 - 1.2 mg/dL [facility] Protein, pl 5.5(L) 6.5 - 8.5 g/dL [facility] Albumin 3.4(L) 3.5 - 5.0 g/dL [facility] Alk phos 64 40 - 130 Units/L [facility] ALT 19 7 - 55 Units/L [facility] AST 21 10 - 50 Units/L [facility] Blood 10/02/2024 4:01 PM MOULDER OPERATOR 10/02/2024 4:17 PM MOULDER OPERATOR us James Robles MD LAB BLOOD ORDERABLES Final Resu lt [facility] [place] [address] * (ABNORMAL) POC Blood Gas and Chemistries, Arterial - (10/02/2024 2:30 PM MOULDER OPERATOR) pH, Art POC 7.31(L) 7.35 - 7.45 pCO2, Art POC 41 35 - 45 mmHg [facility] pO2, Art POC 264(H) 83 - 108 mmHg [facility] Na, POC 140 135 - 145 mmol/L [facility] K POC 4.0 3.3 - 4.9 mmol/L [facility] Comment: Interpretive Data Not all point of care methods assess for hemolysis. Confirm with instrument and retest K+ if not consistent with clinical signs and symptoms. Current Interpretive Data was last revised on 2024. Cl, POC 111(H) 97 - 110 mmol/L [facility] Ionized Ca, POC 4.86 4.50 - 5.10 mg/dL [facility] Glucose, POC 104 70 - 199 mg/dL [facility] Lactate, POC 1.1 0.7 - 2.2 mmol/L [facility] SO2 (cas) arterial 100(H) 90 - 95 % [facility] Base excess, POC -5.4 mmol/L [facility] Hct, POC 37.0(L) 41.4 - 51.6 % [facility] Total Hb, POC 12.4(L) 13.8 - 17.2 g/dL [facility] Blood 10/02/2024 2:30 PM MOULDER OPERATOR 10/02/2024 2:30 PM MOULDER OPERATOR James Robles MD LAB POCT ORDERABLES - DEVICE Fi nal Result [facility] [place] [address] * FL Fluoroscopy < 1 Hour (10/02/2024 2:00 PM MOULDER OPERATOR) Narrative [email or web address] - 10/03/2024 5:04 PM MOULDER OPERATOR The images from this study are not interpreted by Radiology. ??Please refer to the physician's procedure / OR operative note. James Robles MD IMG FLUOROSCOPY PROCEDURES Cammy l Result Performing Organization Address City/[facility]/ZIP Co de Phone Number [email or web address] * (ABNORMAL) POC Blood Gas and Chemistries, Arterial - (10/02/2024 10:43 AM MOULDER OPERATOR) pH, Art POC 7.32(L) 7.35 - 7.45 pCO2, Art POC 41 35 - 45 mmHg [facility] pO2, Art POC 239(H) 83 - 108 mmHg [facility] Na, POC 141 135 - 145 mmol/L [facility] K POC 4.0 3.3 - 4.9 mmol/L [facility] Comment: Interpretive Data Not all point of care methods assess for hemolysis. Confirm with instrument and retest K+ if not consistent with clinical signs and symptoms. Current Interpretive Data was last revised on 2024. Cl, POC 112(H) 97 - 110 mmol/L [facility] Ionized Ca, POC 4.92 4.50 - 5.10 mg/dL [facility] Glucose, POC 97 70 - 199 mg/dL [facility] Lactate, POC 1.0 0.7 - 2.2 mmol/L [facility] SO2 (cas) arterial 100(H) 90 - 95 % [facility] Base excess, POC -4.7 mmol/L [facility] Hct, POC 35.0(L) 41.4 - 51.6 % [facility] Total Hb, POC 11.8(L) 13.8 - 17.2 g/dL [facility] Blood 10/02/2024 10:4 3 AM MOULDER OPERATOR 10/02/2024 10:43 AM MOULDER OPERATOR James Robles MD LAB POCT ORDERABLES - DEVICE Fi nal Result Performing Organization Address City/[facility]/ZIP Co de Phone Number [facility] [place] [address] * Type and screen (10/02/2024 6:18 AM MOULDER OPERATOR) Ramu, indirect Negative ABO Rh B Negative [facility] Blood 10/02/2024 6:18 AM MOULDER OPERATOR 10/02/2024 6:26 AM MOULDER OPERATOR Narrative [facility] - 10/02/2024 7:28 AM MOULDER OPERATOR Has the patient had Daratumumab or Isatuximab in the past 6 months?->Unknown Sully Archer [facility] LAB BLOOD BANK TEST ORDER TALYA Final Result Performing Organization Address [facility] Co de Phone Number [facility] [place] [address] documented in this encounter Visit Diagnoses Diagnosis [...] prior to surgery. Given 10/02/2024 6:15 AM MOULDER OPERATOR 1,000 mg acetaminophen (TYLENOL) tablet 1,000 mg 1,000 mg, oral, Every 6 hours scheduled, First dose on Wed10/02/24 at 1545, Phase I & Post-op Floor Given 10/05/2024 12:45 PM MOULDER OPERATOR 1,000 mg Given 10/05/2024 5:51 AM MOULDER OPERATOR 1,000 mg Given 10/05/2024 12:39 AM MOULDER OPERATOR 1,000 mg acetaminophen (TYLENOL) tablet 1,000 mg 1,000 mg, oral, Every 6 hours PRN, 1st line for pain, fever, Starting on Tyra 10/05/24 at 1315, Phase I & Post-op Floor Given 10/14/2024 9:52 AM MOULDER OPERATOR 1,000 mg Given 10/13/2024 6:47 PM MOULDER OPERATOR 1,000 mg Given 10/13/2024 1:03 AM MOULDER OPERATOR 1,000 mg apixaban (ELIQUIS) tablet 5 mg 5 mg, oral, Every 12 hours scheduled, First dose on Wed10/13/24 at 2100, Nurse to discontinue heparin infusion order at first administration of apixaban using 'order condition met' order source, Indications: Venous ThrombosisIndications:Venous Thrombosis Given 10/14/2024 9: 51 AM MOULDER OPERATOR 5 mg Given 10/13/2024 9:02 PM MOULDER OPERATOR 5 mg azithromycin (ZITHROMAX) tablet 500 mg 500 mg, oral, Daily, First dose on Wed10/04/24 at 0930, For 3 days, Indications: Pneumonia, Community AcquiredIndications:Pneumonia, Community Acquired Given 10/06/2024 8:51 AM MOULDER OPERATOR 500 mg Given 10/05/2024 8:47 AM MOULDER OPERATOR 500 mg Given 10/04/2024 10:39 AM MOULDER OPERATOR 500 mg baclofen (LIORESAL) tablet 10 mg 10 mg, oral, 2 times daily, First dose on Wed10/02/24 at 1730, Phase I & Post-op Floor, Indications: Muscle Spasticity of Spinal OriginIndications:Muscle Spasticity of Spinal Origin Given 10/14/2024 9:52 AM MOULDER OPERATOR 10 mg Given 10/13/2024 9:02 PM MOULDER OPERATOR 10 mg Given 10/13/2024 9:44 AM MOULDER OPERATOR 10 mg bisacodyL (DULCOLAX) suppository 10 mg 10 mg, rectal, Daily PRN, constipation, Starting on Wed10/02/24 at 1933, Phase I & Post-op Floor, If not bowel movement in 48 hours., Indications: constipationIndications:constipati on Given 10/05/2024 11:37 PM MOULDER OPERATOR 10 mg bisacodyL (DULCOLAX) suppository 10 mg [...] Prophylaxis, SurgicalIndications:Prophylaxis, Surgical Given 10/03/2024 4:56 AM MOULDER OPERATOR 2,000 mg 400 mL/hr Given 10/02/2024 8:37 PM MOULDER OPERATOR 2,000 mg 400 mL/hr cefTRIAXone (ROCEPHIN) 2,000 mg/20 mL in sterile water (premix) 2,000 mg 2,000 mg, intravenous, at 240 mL/hr, Administer over 5 Minutes, Every 24 hours scheduled, First dose on Wed10/04/24 at 1000, For 5 doses, Indications: Pneumonia, Community AcquiredIndications:Pneumonia, Community Acquired Given 10/08/2024 10:38 AM MOULDER OPERATOR 2,000 mg 240 mL/hr Given 10/07/2024 9:03 AM MOULDER OPERATOR 2,000 mg 240 mL/hr Given 10/06/2024 9:22 AM MOULDER OPERATOR 2,000 mg 240 mL/hr dexAMETHasone (DECADRON) 4 mg/mL injection 4 mg 4 mg, intravenous, Administer over 2 Minutes, Every 6 hours scheduled, First dose on Wed10/02/24 at 1800, Phase I & Post-op Floor, If cannot tolerate enteral administration., Indications: Cerebral EdemaIndications:Cerebral Edema Given 10/02/2024 4:45 PM MOULDER OPERATOR 4 mg dexAMETHasone (DECADRON) 4 mg/mL injection 6 mg 6 mg, intravenous, Administer over 2 Minutes, Every 6 hours scheduled, First dose (after last modification) on Wed10/03/24 at 0000, Phase I & Post-op Floor, If cannot tolerate enteral administration., Indications: Cerebral EdemaIndications:Cerebral Edema Given 10/03/2024 11:53 AM MOULDER OPERATOR 6 mg dexAMETHasone (DECADRON) tablet 1 mg 1 mg, oral, Every 8 hours scheduled, First dose on Wed10/08/24 at 2200, For 1 day Given 10/09/2024 3:45 PM MOULDER OPERATOR 1 mg Given 10/09/2024 6:33 AM MOULDER OPERATOR 1 mg Given 10/08/2024 9:10 PM MOULDER OPERATOR 1 mg dexAMETHasone (DECADRON) tablet 1 mg 1 mg, oral, Every 12 hours scheduled, First dose on Wed10/09/24 at 2200, For 1 day Given 10/10/2024 12:41 PM MOULDER OPERATOR 1 m g Given 10/10/2024 12:27 AM MOULDER OPERATOR 1 mg dexAMETHasone (DECADRON) tablet 1 mg 1 mg, oral, Daily, First dose on Wed10/11/24 at 0900, For 1 day Given 10/11/2024 8:47 AM MOULDER OPERATOR 1 mg dexAMETHasone (DECADRON) tablet 2 mg 2 mg, oral, Every 8 hours scheduled, First dose on Wed10/07/24 at 2200, For 1 day Given 10/08/2024 3:00 PM MOULDER OPERATOR 2 mg Given 10/08/2024 5:28 AM MOULDER OPERATOR 2 mg Given 10/07/2024 9:51 PM MOULDER OPERATOR 2 mg dexAMETHasone (DECADRON) tablet 4 mg 4 mg, oral, Every 6 hours scheduled, First dose on Wed10/05/24 at 1800, For 1 day Given 10/06/2024 12:40 PM MOULDER OPERATOR 4 m g Given 10/06/2024 5:12 AM MOULDER OPERATOR 4 mg Given 10/05/2024 11:22 PM MOULDER OPERATOR 4 mg dexAMETHasone (DECADRON) tablet 4 mg 4 mg, oral, Every 8 hours scheduled, First dose on Wed10/06/24 at 1800, For 1 day Given 10/07/2024 2:13 PM MOULDER OPERATOR 4 mg Given 10/07/2024 5:38 AM MOULDER OPERATOR 4 mg Given 10/06/2024 5:26 PM MOULDER OPERATOR 4 mg dexAMETHasone (DECADRON) tablet 6 mg 6 mg, oral, Every 6 hours scheduled, First dose (after last modification) on Wed10/03/24 at 0000, Phase I & Post-op Floor, If able to swallow tablets., Indications: Cerebral EdemaIndications:Cerebral Edema Given 10/05/2024 12:45 PM MOULDER OPERATOR 6 mg Given 10/05/2024 5:51 AM MOULDER OPERATOR 6 mg Given 10/05/2024 12:39 AM MOULDER OPERATOR 6 mg docusate sodium (COLACE) capsule 100 mg 100 mg, oral, 2 times daily, First dose on Wed10/02/24 at 2100, Phase I & Post-op Floor, If able to swallow capsules. Hold for diarrhea., Indications: constipation, Stool SoftenerIndications:constipation,Stool Softener Given 10/13/2024 9:02 PM MOULDER OPERATOR 100 mg Given 10/12/2024 8:59 AM MOULDER OPERATOR 100 mg Given 10/11/2024 8:46 PM MOULDER OPERATOR [address] (CYMBALTA) extended release capsule 30 mg 30 mg, oral, 2 times daily, First dose on Wed10/02/24 at 2100, Phase I & Post-op Floor, Capsule may be opened and contents mixed with applesauce or apple juice ONLY. Do not crush or chew capsule, Indications: Neuropathic PainIndications:Neuropathic Pain Given 10/14/2024 9:51 AM MOULDER OPERATOR 30 mg Given 10/13/2024 9:02 PM MOULDER OPERATOR 30 mg Given 10/13/2024 9:45 AM MOULDER OPERATOR 30 mg enoxaparin (LOVENOX) syringe 30 mg 30 mg, subcutaneous, Daily (for enoxaparin), First dose on Wed10/03/24 at 2100, Phase I & Post-op Floor, Indications: VTE ProphylaxisIndications:VTE Prophylaxis Given 10/09/2024 8:20 PM MOULDER OPERATOR 30 mg Left Lower Abdomen Given 10/08/2024 9:10 PM MOULDER OPERATOR 30 mg Le ft Lower Abdomen Given 10/07/2024 9:51 PM MOULDER OPERATOR 30 mg Ri ght Lower Abdomen famotidine (PEPCID) injection 20 mg 20 mg, intravenous, Administer over 2 Minutes, Every 12 hours scheduled, First dose on Wed10/02/24 at 2100, Phase I & Post-op Floor, If unable to tolerate enteral administration., Indications: Prevention of Stress UlcerIndications:Prevention of Stress Ulcer Given 10/03/2024 9:16 AM MOULDER OPERATOR 20 mg famotidine (PEPCID) tablet 20 mg 20 mg, oral, Every 12 hours scheduled, First dose on Wed10/02/24 at 2100, Phase I & Post-op Floor, If able to swallow tablets., Indications: Prevention of Stress UlcerIndications:Prevention of Stress Ulcer Given 10/14/2024 9:52 AM MOULDER OPERATOR 20 mg Given 10/13/2024 9:02 PM MOULDER OPERATOR 20 mg Given 10/13/2024 9:45 AM MOULDER OPERATOR 20 mg finasteride (PROSCAR) tablet 5 mg 5 mg, oral, Every morning, First dose on Wed10/03/24 at 0900, Do not crush, break, or open., Indications: benign prostatic hyperplasia with lower urinary tract sxIndications:benign prostatic hyperplasia with lower urinary tract sx Given 10/14/2024 9:51 AM MOULDER OPERATOR 5 mg Given 10/13/2024 9:45 AM MOULDER OPERATOR 5 mg Given 10/12/2024 8:59 AM MOULDER OPERATOR 5 mg gabapentin (NEURONTIN) capsule 300 mg 300 mg, oral, Once, On Wed10/02/24 at 0630, For 1 dose, Pre-Op, Administer 60 minutes prior to surgery. Given 10/02/2024 6:15 AM MOULDER OPERATOR 300 mg heparin in 0.45% sodium chloride [...] ThrombosisIndications:Venous Thrombosis New Bag 10/13/2024 4:24 PM MOULDER OPERATOR 9.6 Units/kg/hr 10.01 mL/hr New Bag 10/12/2024 8:50 AM MOULDER OPERATOR 9.6 Units/kg/hr 10.01 mL /hr Rate/Dose Change 10/11/2024 6:40 PM MOULDER OPERATOR 9.6 Units/kg/hr 10 .01 mL/hr hydrALAZINE (APRESOLINE) injection 10 mg 10 mg, intravenous, Administer over 2 Minutes, Once, On Wed10/08/24 at 0545, For 1 dose Given 10/08/2024 5:28 AM MOULDER OPERATOR 10 mg HYDROmorphone (DILAUDID) injection 0.2 mg [...] more., Indications: PainIndications:Pain Given 10/02/2024 4:59 PM MOULDER OPERATOR 0.2 mg Given 10/02/2024 4:45 PM MOULDER OPERATOR 0.2 mg Lactated Ringer's (LR) infusion 30 mL/hr, intravenous, Continuous, Starting on Wed10/02/24 at 0630, Pre-Op Restarted 10/02/2024 3:02 PM MOULDER OPERATOR Rate/Dose Change 10/02/2024 8:33 AM MOULDER OPERATOR 30 mL/h r Rate/Dose Verify 10/02/2024 7:29 AM MOULDER OPERATOR 30 mL/h r magnesium sulfate 2 g/50 mL in water (premix) 2 g 2 g, intravenous, Administer over 60 Minutes, Once, On Wed10/03/24 at 1530, For 1 dose New Bag 10/03/2024 3:18 PM MOULDER OPERATOR 2 g oxyCODONE (ROXICODONE) tablet 5 mg 5 mg, oral, Once as needed, 1st line for pain, Starting on Wed10/02/24 at 1550, For 1 dose, Phase I, When able to tolerate PO., Indications: PainIndications:Pain Given 10/02/2024 4:42 PM MOULDER OPERATOR 5 mg oxyCODONE (ROXICODONE) tablet 5 mg 5 mg, oral, Every 4 hours PRN, 2nd line for pain, Starting on Wed10/02/24 at 1933, Phase I & Post-op Floor, May repeat in 1 hour if pain is uncontrolled or increasing. Max 2 doses within 1 dosing interval., Indications: PainIndications:Pain Given 10/14/2024 1:41 PM MOULDER OPERATOR 5 mg Given 10/14/2024 9:52 AM MOULDER OPERATOR 5 mg Given 10/14/2024 6:16 AM MOULDER OPERATOR 5 mg phenylephrine in 0.9% sodium chloride [...] light, Routine Rate/Dose Change 10/03/2024 2:04 PM MOULDER OPERATOR 1.7 mcg/kg/min 101 mL/hr New Bag 10/03/2024 1:45 PM MOULDER OPERATOR 1.6 mcg/kg/min 94.9 mL/h r Rate/Dose Change 10/03/2024 1:39 PM MOULDER OPERATOR 1.6 mcg/kg/min 94. 9 mL/hr phenylephrine in [...] light, Routine New Bag 10/03/2024 4:03 PM MOULDER OPERATOR 2.8 mcg/kg/min 166 mL/hr Rate/Dose Change 10/03/2024 3:36 PM MOULDER OPERATOR 2.8 mcg/kg/min 166 mL/hr Rate/Dose Change 10/03/2024 3:34 PM MOULDER OPERATOR 2.7 mcg/kg/min 160 mL/hr phenylephrine in 0.9% [...] light, Routine Rate/Dose Change 10/04/2024 7:46 AM MOULDER OPERATOR 0.4 mcg/kg/min 23.7 mL/hr Rate/Dose Change 10/04/2024 7:39 AM MOULDER OPERATOR 0.3 mcg/kg/min 17. 8 mL/hr Rate/Dose Change 10/04/2024 7:27 AM MOULDER OPERATOR 0.2 mcg/kg/min 11. 87 mL/hr phenylephrine in [...] from light, Routine Restarted 10/04/2024 9:35 PM MOULDER OPERATOR 0.1 mcg/kg/min 5.93 mL/hr Rate/Dose Change 10/04/2024 7:17 PM MOULDER OPERATOR 0.1 mcg/kg/min 5.9 3 mL/hr New Bag 10/04/2024 3:07 PM MOULDER OPERATOR 0.2 mcg/kg/min 11.87 mL/ hr polyethylene glycol (MIRALAX) packet 17 g 17 g, oral, Daily, First dose on Wed10/02/24 at 2015, Phase I & Post-op Floor, Hold for diarrhea., Indications: constipationIndications:constipation Given 10/12/2024 8:58 AM MOULDER OPERATOR 17 g Given 10/11/2024 8:47 AM MOULDER OPERATOR 17 g Given 10/10/2024 8:00 AM MOULDER OPERATOR 17 g senna (SENOKOT) tablet 1 tablet 1 tablet, oral, 2 times daily, First dose on Wed10/02/24 at 2100, Phase I & Post-op Floor, If able to swallow tablets. Hold for diarrhea., Indications: constipationIndications:constipation Given 10/13/2024 9:02 PM MOULDER OPERATOR 1 table t Given 10/12/2024 8:59 AM MOULDER OPERATOR 1 tablet Given 10/11/2024 8:46 PM MOULDER OPERATOR 1 tablet sodium chloride 0.9% bolus 1,000 mL 1,000 mL, intravenous, Once, On Wed10/03/24 at 1015, For 1 dose New Bag 10/03/2024 9:42 AM MOULDER OPERATOR 1,000 mL Right Hand sodium chloride 0.9% flush 0.5-20 mL 0.5-20 mL, intra-catheter, Every 8 hours scheduled, First dose on Wed10/02/24 at 2200, Flush volume based on line type and size. , Indications: FlushingIndications:Flushing Given 10/04/2024 5:05 AM MOULDER OPERATOR 10 mL Given 10/03/2024 9:44 PM MOULDER OPERATOR 10 mL Given 10/03/2024 2:28 PM MOULDER OPERATOR 5 mL sodium chloride 0.9% flush 0.5-20 mL 0.5-20 mL, intra-catheter, As needed, line care, Starting on Wed10/02/24 at 1933, Flush volume based on line type and size. Flush before and after each use. , Indications: FlushingIndications:Flushing Given 10/10/2024 8:06 PM MOULDER OPERATOR 10 mL sodium chloride 0.9% flush 0.5-20 mL 0.5-20 mL, intra-catheter, Every 8 hours scheduled, First dose on Wed10/02/24 at 2200, Flush volume based on line type and size. , Indications: FlushingIndications:Flushing Given 10/04/2024 5:04 AM MOULDER OPERATOR 20 mL Given 10/03/2024 9:44 PM MOULDER OPERATOR 10 mL Given 10/03/2024 2:28 PM MOULDER OPERATOR 5 mL sodium chloride 0.9% infusion 10 mL/hr, intravenous, Continuous, Starting on Wed10/02/24 at 1615, Phase I & Post-op Floor, Carrier Rate/Dose Change 10/04/2024 8:35 AM MOULDER OPERATOR 10 mL/hr 10 mL/hr Rate/Dose Verify 10/04/2024 6:00 AM MOULDER OPERATOR 100 mL/hr 100 mL/ hr Rate/Dose Verify 10/04/2024 5:00 AM MOULDER OPERATOR 100 mL/hr 100 mL/ hr sodium chloride 0.9% infusion 100 mL/hr, intravenous, Continuous, Starting on 10/07/24 at 1000 New Bag 10/08/2024 9:16 PM MOULDER OPERATOR 100 mL/hr 100 mL/hr New Bag 10/08/2024 11:15 AM MOULDER OPERATOR 100 mL/hr 100 mL/hr New Bag 10/08/2024 12:28 AM MOULDER OPERATOR 100 mL/hr 100 mL/hr sodium chloride 0.9% infusion 100 mL/hr, intravenous, Continuous, Starting on Wed10/11/24 at 0530 New Bag 10/13/2024 9:02 PM MOULDER OPERATOR 100 mL/hr 100 mL/hr New Bag 10/13/2024 7:20 AM MOULDER OPERATOR 100 mL/hr 100 mL/hr New Bag 10/12/2024 9:08 PM MOULDER OPERATOR 100 mL/hr 100 mL/hr tamsulosin (FLOMAX) extended [...] urinary tract sx Given 10/02/2024 9:04 PM MOULDER OPERATOR 0.4 mg tamsulosin (FLOMAX) extended release capsule 0.4 mg 0.4 mg, oral, Daily with dinner, First dose on Wed10/09/24 at 0715, Do not crush, chew, cut, dissolve, open or otherwise manipulate tablet/capsule. Given 10/13/2024 6:47 PM MOULDER OPERATOR 0.4 mg Given 10/12/2024 5:13 PM MOULDER OPERATOR 0.4 mg Given 10/11/2024 5:57 PM MOULDER OPERATOR 0.4 mg vancomycin 1500 mg/515 mL in sodium chloride 0.9% (premix) 1,500 mg 1,500 mg, intravenous, Administer over 90 Minutes, Once, On Wed10/02/24 at 2015, For 1 dose, Phase I, Administer 12 hours after pre-operative dose., Indications: Prophylaxis, SurgicalIndications:Prophylaxis, Surgical New Bag 10/02/2024 8:38 PM MOULDER OPERATOR 1,500 mg documented in this encounter Discontinued [...] Recently Administered Medications Times are shown in MOULDER OPERATOR. Scheduled Medication Order 10/12/2024 10/13/2024 10/14/2024 apixaban [...] MARK) 0952 (Given - Provider: Fe Brower, MARK) Carrier Fluids for Secondary Infusion - 0.9% [...] Provider: Fe Brower RN)2102 (Given - Provider: Roasura Correa RN) 0138 (Given - Provider: Rosaura [...] COVID: Suspected 10/04/2024 10/04/2024 10/04/2024 11:18 AM MOULDER OPERATOR documented as of this encounter Care Teams Endoscopic Technician Relationship Specialty Start Date End Date Sj Benson MD [address] [facility] [place] [address] PCP - General Family Medicine 07/05/24 documented as of this encounter
--- OUTSIDE RECORDS SUMMARY | 2024-11-14 20:31 | XMS_ITS | Encounter Summary ---
Author Organization [facility] Address [address] [place] [address] Phone Care Team Providers Care Grain Roaster Name Role Phone Sj Benson MD Primary Care Provider [phone] Encounter Details Date Type Department Care Team (Late st Contact Info) Description 10/09/2024 Telephone [facility] Cardiology 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 no TYPE OF CONSULT: general CALLER'S NAME: JOSE Newell CALLER'S PAGER: [phone] PATIENT'S NAME: Ryan Delgado : 1950 CAMPUS: [facility] PATIENT'S LOCATION: [address] Bed 1 REASON FOR CONSULT: rt lower actue dvt, asing for instructions for anticoagulation and EKG today shows sinus beba w/first degree block, pt has advised of chest pain on going. ATTENDING PHYSICIAN: Dr. Robles UNT GENERAL MANAGER documented in this encounter Plan of Treatment Not on file documented as of this encounter Visit Diagnoses Not on filedocumented in this encounter Care Teams Grain Roaster Relationship Specialty Start Date End Date Sj Benson MD [address] [facility] [place] [address] PCP - General Family Medicine 07/05/24 documented as of this encounter
--- OUTSIDE RECORDS SUMMARY | 2024-11-14 20:31 | XMS_ITS | Encounter Summary ---
Author Organization [facility] Healthcare Address [address] [place] [address] Care Team Providers Care Termite Helper Name Role Phone Sj Benson MD Primary Care Provider [phone] Encounter Details Date Type Department Care Team (Latest Contact Info) Description 11/06/2024 11:07 AM DISTRIBUTION COLLECTION OPERATOR - 11/06/2024 11:59 PM DISTRIBUTION COLLECTION OPERATOR Hospital Encounter [facility] Emergency, Room [...] on file Legal Sex Male 12:23 PM DISTRIBUTION COLLECTION OPERATOR Gender Identity Not on file Sexual [...] on filedocumented in this encounter Care Teams Termite Helper Relationship Specialty Start Date End Date Benson, Sj, MD [address] [facility] [address] [place] [address] PCP - General Family Medicine 07/05/24 documented as of this encounter
--- OUTSIDE RECORDS SUMMARY | 2024-11-14 20:31 | XMS_ITS | Encounter Summary ---
Author Organization [facility] Address [address] [facility] [address] [place] [address] Phone Care Team Providers Care Frame Welder Cargo Utility Trailers Name Role Phone Sj Benson MD Primary Care Provider [phone] Encounter Details Date Type Department Care Team (Late st Contact Info) Description 11/07/2024 Telephone [facility] Neurosurgery [address] [facility] Advanced Medicine 6th [place] [address] [place] [address] James Robles MD [address] [place] [address] Social History Tobacco Use Types [...] on file Legal Sex Male 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 ECTIONAL PROGRAM OFFICER * Telephone Encounter - Bernice Cohn RMA [...] CM to call her with a prognosis ECTIONAL PROGRAM OFFICER documented in this encounter Plan of Treatment Not on file documented as of this encounter Visit Diagnoses Not on filedocumented in this encounter Care Teams Frame Welder Cargo Utility Trailers Relationship Specialty Start Date End Date Sj Benson MD [address] [facility] [place] [address] PCP - General Family Medicine 07/05/24 documented as of this encounter
--- OUTSIDE RECORDS SUMMARY | 2024-11-14 20:31 | XMS_ITS | Encounter Summary ---
Author Organization [facility] Healthcare Address [address] [place] [address] Care Team Providers Care Department Editor Name Role Phone Sj Benson MD Primary Care Provider Encounter Details Date Type Department Care Team (Late st Contact Info) Description 10/02/2024 Orders Only [facility] Operating Room [address] [place] [id number] James Robles MD [address] [facility] [address] [place], [place] [id number] Social History Tobacco Use Types Packs/Day Years [...] on file Legal Sex Male 12:23 PM SAMPLING EXPERT Gender Identity Not on file Sexual Orientation Not on file documented as of this encounter Plan of Treatment Not on file documented as of this encounter Procedures Procedure Name Priority Date/Time Associated Diagnosis Comments SURGICAL PATHOLOGY Routine 10/02/2024 12 :15 PM SAMPLING EXPERT documented in this encounter Results * Surgical pathology (10/02/2024 12:15 PM SAMPLING EXPERT) Soft tissue 10/02/2024 12:1 5 PM SAMPLING EXPERT 10/02/2024 3:15 PM SAMPLING EXPERT Narrative 10/06/2024 2:00 PM SAMPLING EXPERT [facility] [place] [address] NEUROPATHOLOGY REPORT FINAL Patient Name:RYAN DELGADOAddress:[address] [place] [address] CTService:NeurosurgeryAccession #:[id number], [place] ??[id number]:[facility] OR POD 5Taken:10/02/2024Gender: MMRN :[id number]:4DOB:1950 (Age: 74)Hospital #:[id number]:10/02/2024atient Type:[facility] InpatientReported:10/06/2024 ? Physician(s): Abelardo Tijerina M.D. [...] Surgical Pathology report is available electronically in [employer] Clinical Desktop. The performance characteristics of some immunohistochemical stains, fluorescence in-situ hybridization tests and immunophenotyping by flow cytometry cited in this report (if any) were determined by the Surgical Pathology Department at [facility] as part of an ongoing rn clinical [...] determined by the Surgical Pathology Department of [facility]. ??It has not been cleared or approved by the [place]. [place]. Food and Drug Administration. James Robles MD LAB PATHOLOGY ORDERABLES Final Result documented in this encounter Visit Diagnoses Not on filedocumented in this encounter Care Teams Department Editor Relationship Specialty Start Date End Date Sj Benson MD [address] [facility] [place] [address] PCP - General Family Medicine 07/05/24 documented as of this encounter
--- OUTSIDE RECORDS SUMMARY | 2024-11-14 20:31 | XMS_ITS | Encounter Summary ---
Author Organization [facility] Address [address] [facility] [address] [place] [address] Phone Care Team Providers Care Hoop Bender Tank Name Role Phone Sj Benson MD Primary Care Provider [phone] Reason for Referral * Consultation (Routine) - Pending Review Specialty Diagnoses / Procedures Referred By Hector sosa Referred To Contact Hematology Diagnoses Hospital discharge follow-up Claudia Ryan NP [address] [place] [address] Phone: tel: fax: Claudia Salmno MD [address] [place] [address] Phone: tel: fax: Referral ID Status Reason Start Date Expiration Date Visits Requested Visits Authorized [id number] Pending Review Specialty Services Required 4 11/08/2025 1 1 Question Answer Please select the performing region: [facility] (All Locations) [[id number]] Please select the performing department: [facility] HEM ACB6 [[id number]] To provider: CLAUDIA SALMON [[id number]] # of visits: 1 Comments Hospital discharge f/u with Dr Salmon in about 3 months KING AND FANNING MACHINE OPERATOR Encounter Details Date Type Department Care Team (Late st Contact Info) Description 10/09/2024 Orders Only [facility] Hematology [address] [facility] Floor [address] [place] [address] Claudia Ryan, JOSE [address] [place] [address] Hospital discharge follow-up (Primary Dx) Social History [...] on file Legal Sex Male 12:23 PM CRACKING AND FANNING MACHINE OPERATOR Gender Identity Not on file Sexual Orientation Not on file documented as of this encounter Plan of Treatment Scheduled Referrals Name Type Priority Associated Diagnoses Order Schedule Ambulatory referral to Hematology Outpatient Referral Routine Hospital discharge follow-up Ordered: 10/09/2024 documented as of this encounter Visit Diagnoses Diagnosis Hospital discharge follow-up- Primary Other follow-up examination documented in this encounter Care Teams Hoop Bender Tank Relationship Specialty Start Date End Date Sj Benson MD [address] [place] [address] PCP - General Family Medicine 07/05/24 documented as of this encounter
--- OUTSIDE RECORDS SUMMARY | 2024-11-14 20:31 | XMS_ITS | Clinical Summary ---
Author Organization [facility] Address [facility] [place] [address] Care Team Providers Care Environmental Manager Name Role Phone Sj Benson MD Primary Care Provider [phone] Allergies Active Allergy Reactions Criticality Noted Date [...] Type Department Care Team Description 11/07/2024 Telephone [facility] Neurosurgery [address] [facility] 6th [place] [address] [place] [address] James Robles MD 11/06/2024 11:07 AM MAT CLEANING MACHINE OPERATOR - 11/06/2024 11:59 PM MAT CLEANING MACHINE OPERATOR Hospital Encounter [facility] Emergency, Room R Discharge Disposition: Discharge to home or self care 10/13/2024 8:10 AM MAT CLEANING MACHINE OPERATOR Ancillary Procedure [facility] Vascular Lab IP [address] [facility] [address] [place] [address] 10/09/2024 8:55 AM MAT CLEANING MACHINE OPERATOR Ancillary Procedure [facility] Vascular Lab IP [address] [facility] [address] [place] [address] 10/09/2024 Orders Only [facility] Hematology [address] [facility] Floor 6 [place] [address] Claudia Ryan NP Hospital discharge follow-up (Primary Dx) 10/09/2024 Telephone [facility] Cardiology [address] [facility] [address] 8th [place] [address] [place] [address] Stephany Carver 10/02/2024 7:30 AM MAT CLEANING MACHINE OPERATOR - 10/02/2024 3:05 PM MAT CLEANING MACHINE OPERATOR Surgery [facility] Operating Room 1 [place] [address] James Robles MD POSTERIOR LUMBAR/THORACIC WITH INSTRUMENTATION 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 10/02/2024 7:29 AM MAT CLEANING MACHINE OPERATOR Anesthesia Event [facility] Operating Room 1 [place] [address] Marimar Carr MD PhD Sully Archer NP 10/02/2024 5:29 AM MAT CLEANING MACHINE OPERATOR - 10/14/2024 2:41 PM MAT CLEANING MACHINE OPERATOR Hospital Encounter [facility] 1 [place] [address] James Robles MD Thoracic myelopathy Discharge Disposition: Discharge to an Rehab facility 10/02/2024 Orders Only [facility] Operating Room 1 [place] [address] James Robles MD 09/13/2024 10:30 AM CDT Pre-Admission Testing [facility] CAM Pre Anesthesia Testing [address] [place] [address] Preoperative testing (Primary Dx) 09/13/2024 10:05 AM CDT Lab [facility] [address] [place] [address] [address] [place] [address] Preoperative testing; Thoracic myelopathy 08/16/2024 Telephone [facility] Neurosurgery [address] [facility] Medical Office Building [address] [place] [address] James Robles MD from Last [...] on file Legal Sex Male 12:23 PM MAT CLEANING MACHINE OPERATOR Gender Identity Not on file Sexual Orientation Not on file Obstetrics History Last Filed Vital Signs Vital Sign Reading Time Taken Comments Blood Pressure 109/63 10/14/2024 12:17 PM MAT CLEANING MACHINE OPERATOR Pulse 60 10/14/2024 12:17 PM MAT CLEANING MACHINE OPERATOR Temperature 36.6 ??C (97.9 ??F) 10/14/2024 1 2:17 PM MAT CLEANING MACHINE OPERATOR Respiratory Rate 16 10/14/2024 12:1 7 PM MAT CLEANING MACHINE OPERATOR Oxygen Saturation 97% 10/14/2024 12: 17 PM MAT CLEANING MACHINE OPERATOR Inhaled Oxygen Concentration - - Weight 98.4 kg (216 lb 14.9 oz) 10/12/2024 2:30 PM MAT CLEANING MACHINE OPERATOR Height 182.9 cm (6') 10/03/2024 2:04 PM MAT CLEANING MACHINE OPERATOR Body Mass Index 29.42 10/03/2024 2:04 PM MAT CLEANING MACHINE OPERATOR Plan of Treatment Health Maintenance Due Date [...] Comments HEPATIC FUNCTION PANEL Routine 8:12 PM MAT CLEANING MACHINE OPERATOR EGFR Routine 10/13/2024 8:12 PM MAT CLEANING MACHINE OPERATOR PROTIME-INR STAT 10/13/2024 8:12 PM MAT CLEANING MACHINE OPERATOR CBC WITHOUT DIFFERENTIAL Routine 10/13/2024 8:12 PM MAT CLEANING MACHINE OPERATOR BASIC METABOLIC PANEL Routine 10/13/2024 8:12 PM MAT CLEANING MACHINE OPERATOR PEP THERAPY Routine 10/13/2024 12:00 PM MAT CLEANING MACHINE OPERATOR US VEIN DUPLEX LOWER EXTREMITY BILATERAL COMPLETE IP Routine 10/13/2024 9:43 AM MAT CLEANING MACHINE OPERATOR APTT STAT 10/13/2024 6:24 AM MAT CLEANING MACHINE OPERATOR PEP THERAPY Routine 10/13/2024 6:01 AM MAT CLEANING MACHINE OPERATOR EGFR Routine 10/12/2024 9:40 PM MAT CLEANING MACHINE OPERATOR APTT Routine 10/12/2024 9:40 PM MAT CLEANING MACHINE OPERATOR CBC WITHOUT DIFFERENTIAL Routine 10/12/2024 9:40 PM MAT CLEANING MACHINE OPERATOR BASIC METABOLIC PANEL Routine 10/12/2024 9:40 PM MAT CLEANING MACHINE OPERATOR PEP THERAPY Routine 10/12/2024 6:00 PM MAT CLEANING MACHINE OPERATOR PEP THERAPY Routine 10/12/2024 12:00 PM MAT CLEANING MACHINE OPERATOR APTT STAT 10/12/2024 6:21 AM MAT CLEANING MACHINE OPERATOR PEP THERAPY Routine 10/12/2024 6:01 AM MAT CLEANING MACHINE OPERATOR APTT STAT 10/12/2024 12:54 AM MAT CLEANING MACHINE OPERATOR EGFR Routine 10/11/2024 9:52 PM MAT CLEANING MACHINE OPERATOR CBC WITHOUT DIFFERENTIAL Routine 10/11/2024 9:52 PM MAT CLEANING MACHINE OPERATOR BASIC METABOLIC PANEL Routine 10/11/2024 9:52 PM MAT CLEANING MACHINE OPERATOR PEP THERAPY Routine 10/11/2024 6:00 PM MAT CLEANING MACHINE OPERATOR APTT STAT 10/11/2024 5:30 PM MAT CLEANING MACHINE OPERATOR PEP THERAPY Routine 10/11/2024 12:00 PM MAT CLEANING MACHINE OPERATOR PEP THERAPY Routine 10/11/2024 6:01 AM MAT CLEANING MACHINE OPERATOR PEP THERAPY Routine 10/11/2024 12:00 AM MAT CLEANING MACHINE OPERATOR EGFR Routine 10/10/2024 8:04 PM MAT CLEANING MACHINE OPERATOR APTT STAT 10/10/2024 8:04 PM MAT CLEANING MACHINE OPERATOR PROTIME-INR STAT 10/10/2024 8:04 PM MAT CLEANING MACHINE OPERATOR APTT STAT 10/10/2024 8:04 PM MAT CLEANING MACHINE OPERATOR CBC WITHOUT DIFFERENTIAL Routine 10/10/2024 8:04 PM MAT CLEANING MACHINE OPERATOR BASIC METABOLIC PANEL Routine 10/10/2024 8:04 PM MAT CLEANING MACHINE OPERATOR PEP THERAPY Routine 10/10/2024 12:00 PM MAT CLEANING MACHINE OPERATOR CBC WITHOUT DIFFERENTIAL STAT 10/10/2024 11:51 AM MAT CLEANING MACHINE OPERATOR APTT STAT 10/10/2024 11:36 AM MAT CLEANING MACHINE OPERATOR PROTIME-INR STAT 10/10/2024 11:36 AM MAT CLEANING MACHINE OPERATOR PEP THERAPY Routine 10/10/2024 6:01 AM MAT CLEANING MACHINE OPERATOR EGFR Routine 10/10/2024 3:19 AM MAT CLEANING MACHINE OPERATOR CBC WITHOUT DIFFERENTIAL Routine 10/10/2024 3:19 AM MAT CLEANING MACHINE OPERATOR BASIC METABOLIC PANEL Routine 10/10/2024 3:19 AM MAT CLEANING MACHINE OPERATOR PEP THERAPY Routine 10/10/2024 12:00 AM MAT CLEANING MACHINE OPERATOR POCT GLUCOSE DEVICE Routine 10/09/2024 8 :41 PM MAT CLEANING MACHINE OPERATOR PEP THERAPY Routine 10/09/2024 6:00 PM MAT CLEANING MACHINE OPERATOR US VEIN DUPLEX LOWER EXTREMITY BILATERAL COMPLETE ED Urgent/IP Urgent 10/09/2024 10:08 AM MAT CLEANING MACHINE OPERATOR XR CHEST 1 VIEW IP Routine 10/09/2024 7:55 AM MAT CLEANING MACHINE OPERATOR PEP THERAPY Routine 10/09/2024 6:01 AM MAT CLEANING MACHINE OPERATOR PEP THERAPY Routine 10/09/2024 12:00 AM MAT CLEANING MACHINE OPERATOR EGFR Timed 10/08/2024 10:15 PM MAT CLEANING MACHINE OPERATOR PHOSPHORUS Timed 10/08/2024 10:15 PM MAT CLEANING MACHINE OPERATOR MAGNESIUM Timed 10/08/2024 10:15 PM MAT CLEANING MACHINE OPERATOR COMPREHENSIVE METABOLIC PANEL Timed 10/08/2024 10:15 PM MAT CLEANING MACHINE OPERATOR CBC WITHOUT DIFFERENTIAL Routine 10/08/2024 10:15 PM MAT CLEANING MACHINE OPERATOR PEP THERAPY Routine 10/08/2024 6:00 PM MAT CLEANING MACHINE OPERATOR PEP THERAPY Routine 10/08/2024 12:00 PM MAT CLEANING MACHINE OPERATOR TROPONIN I HIGH-SENSITIVITY STAT 10/08/2024 11:36 AM MAT CLEANING MACHINE OPERATOR LACTATE Timed 10/08/2024 8:38 AM MAT CLEANING MACHINE OPERATOR PEP THERAPY Routine 10/08/2024 6:00 AM MAT CLEANING MACHINE OPERATOR EGFR Routine 10/07/2024 10:19 PM MAT CLEANING MACHINE OPERATOR CBC WITHOUT DIFFERENTIAL Routine 10/07/2024 10:19 PM MAT CLEANING MACHINE OPERATOR BASIC METABOLIC PANEL Routine 10/07/2024 10:19 PM MAT CLEANING MACHINE OPERATOR LACTATE, WHOLE BLOOD Timed 10/07/2024 9:09 AM MAT CLEANING MACHINE OPERATOR URINALYSIS, MICROSCOPIC ONLY Routine 10/07/2024 5:37 AM MAT CLEANING MACHINE OPERATOR URINALYSIS AND REFLEX TO MICROSCOPIC AND CULTURE Routine 10/07/2024 5:37 AM MAT CLEANING MACHINE OPERATOR BLOOD CULTURE STAT 10/07/2024 5:37 AM MAT CLEANING MACHINE OPERATOR BLOOD CULTURE STAT 10/07/2024 5:37 AM MAT CLEANING MACHINE OPERATOR XR CHEST 1 VIEW IP Routine 10/07/2024 5:18 AM MAT CLEANING MACHINE OPERATOR PEP THERAPY Routine 10/07/2024 12:00 AM MAT CLEANING MACHINE OPERATOR LACTATE, WHOLE BLOOD Routine 10/06/2024 9:30 PM MAT CLEANING MACHINE OPERATOR EGFR Routine 10/06/2024 9:16 PM MAT CLEANING MACHINE OPERATOR CBC WITHOUT DIFFERENTIAL Routine 10/06/2024 9:16 PM MAT CLEANING MACHINE OPERATOR BASIC METABOLIC PANEL Routine 10/06/2024 9:16 PM MAT CLEANING MACHINE OPERATOR PEP THERAPY Routine 10/06/2024 6:00 PM MAT CLEANING MACHINE OPERATOR PEP THERAPY Routine 10/06/2024 12:00 PM MAT CLEANING MACHINE OPERATOR PEP THERAPY Routine 10/06/2024 6:01 AM MAT CLEANING MACHINE OPERATOR EGFR Routine 10/05/2024 10:43 PM MAT CLEANING MACHINE OPERATOR CBC WITHOUT DIFFERENTIAL Routine 10/05/2024 10:43 PM MAT CLEANING MACHINE OPERATOR LACTATE, WHOLE BLOOD Routine 10/05/2024 10:43 PM MAT CLEANING MACHINE OPERATOR BASIC METABOLIC PANEL Routine 10/05/2024 10:43 PM MAT CLEANING MACHINE OPERATOR PEP THERAPY Routine 10/05/2024 6:12 PM MAT CLEANING MACHINE OPERATOR PEP THERAPY Routine 10/05/2024 6:12 PM MAT CLEANING MACHINE OPERATOR EGFR Routine 10/04/2024 8:49 PM MAT CLEANING MACHINE OPERATOR DIFFERENTIAL AUTO Routine 10/04/2024 8:4 9 PM MAT CLEANING MACHINE OPERATOR LACTATE, WHOLE BLOOD Routine 10/04/2024 8:49 PM MAT CLEANING MACHINE OPERATOR CALCIUM,IONIZED, WHOLE BLOOD Routine 10/04/2024 8:49 PM MAT CLEANING MACHINE OPERATOR TROPONIN I HIGH-SENSITIVITY Routine 10/04/2024 8:49 PM MAT CLEANING MACHINE OPERATOR CBC WITH AUTO DIFFERENTIAL Routine 10/04/2024 8:49 PM MAT CLEANING MACHINE OPERATOR BASIC METABOLIC PANEL Routine 10/04/2024 8:49 PM MAT CLEANING MACHINE OPERATOR URINALYSIS, MICROSCOPIC ONLY STAT 10/04/2024 1:30 PM MAT CLEANING MACHINE OPERATOR URINALYSIS AND REFLEX TO MICROSCOPIC AND CULTURE STAT 10/04/2024 1:30 PM MAT CLEANING MACHINE OPERATOR LACTATE, WHOLE BLOOD STAT 10/04/2024 12:12 PM MAT CLEANING MACHINE OPERATOR TROPONIN I HIGH-SENSITIVITY 2-HOUR Timed 10/04/2024 12:06 PM MAT CLEANING MACHINE OPERATOR CRITICAL RESULT CALLBACK CHEMISTRY STAT 10/04/2024 9:06 AM MAT CLEANING MACHINE OPERATOR TROPONIN I HIGH-SENSITIVITY SERIES (BASELINE, 2HR, 4HR, 6HR) Routine 10/04/2024 9:06 AM MAT CLEANING MACHINE OPERATOR LACTATE STAT 10/04/2024 9:06 AM MAT CLEANING MACHINE OPERATOR INFLUENZA A/B, RSV, AND COVID-19 PCR Routine 10/04/2024 9:06 AM MAT CLEANING MACHINE OPERATOR EGFR Routine 10/03/2024 10:36 PM MAT CLEANING MACHINE OPERATOR BASIC METABOLIC PANEL Routine 10/03/2024 10:36 PM MAT CLEANING MACHINE OPERATOR DIFFERENTIAL AUTO Routine 10/03/2024 8:3 0 PM MAT CLEANING MACHINE OPERATOR CBC WITH AUTO DIFFERENTIAL Routine 10/03/2024 8:30 PM MAT CLEANING MACHINE OPERATOR EGFR STAT 10/03/2024 8:25 PM MAT CLEANING MACHINE OPERATOR BASIC METABOLIC PANEL STAT 10/03/2024 8:25 PM MAT CLEANING MACHINE OPERATOR ECG 12-LEAD Routine 10/03/2024 2:19 PM MAT CLEANING MACHINE OPERATOR POCT GLUCOSE DEVICE Routine 10/03/2024 2 :07 PM MAT CLEANING MACHINE OPERATOR EGFR Routine 10/03/2024 4:58 AM MAT CLEANING MACHINE OPERATOR DIFFERENTIAL AUTO Routine 10/03/2024 4:5 8 AM MAT CLEANING MACHINE OPERATOR BASIC METABOLIC PANEL Routine 10/03/2024 4:58 AM MAT CLEANING MACHINE OPERATOR CBC WITH AUTO DIFFERENTIAL Routine 10/03/2024 4:58 AM MAT CLEANING MACHINE OPERATOR XR CHEST 1 VIEW IP Routine 10/02/2024 9:08 PM MAT CLEANING MACHINE OPERATOR EGFR STAT 10/02/2024 4:01 PM MAT CLEANING MACHINE OPERATOR DIFFERENTIAL AUTO STAT 10/02/2024 4:0 1 PM MAT CLEANING MACHINE OPERATOR PROTIME-INR STAT 10/02/2024 4:01 PM MAT CLEANING MACHINE OPERATOR APTT STAT 10/02/2024 4:01 PM MAT CLEANING MACHINE OPERATOR CBC WITH AUTO DIFFERENTIAL STAT 10/02/2024 4:01 PM MAT CLEANING MACHINE OPERATOR PHOSPHORUS STAT 10/02/2024 4:01 PM MAT CLEANING MACHINE OPERATOR MAGNESIUM STAT 10/02/2024 4:01 PM MAT CLEANING MACHINE OPERATOR COMPREHENSIVE METABOLIC PANEL STAT 10/02/2024 4:01 PM MAT CLEANING MACHINE OPERATOR POC BLOOD GAS AND CHEMISTRIES, ARTERIAL Routine 10/02/2024 2:30 PM MAT CLEANING MACHINE OPERATOR FL FLUOROSCOPY < 1 HOUR IP Routine 10/02/2024 2:00 PM MAT CLEANING MACHINE OPERATOR SURGICAL PATHOLOGY Routine 10/02/2024 12 :15 PM MAT CLEANING MACHINE OPERATOR POC BLOOD GAS AND CHEMISTRIES, ARTERIAL Routine 10/02/2024 10:43 AM MAT CLEANING MACHINE OPERATOR ANESTHESIA ARTERIAL LINE PLACEMENT Routine 10/02/2024 8:32 AM MAT CLEANING MACHINE OPERATOR ANESTHESIA INTUBATION Routine 10/02/2024 8:31 AM MAT CLEANING MACHINE OPERATOR SPINAL CORD MONITORING 7:29 AM MAT CLEANING MACHINE OPERATOR Thoracic myelopathy Case Notes [email or web address] Celine via email add Dr. David HEBERT LAMINECTOMY THORACIC DECOMPRESSION 10/02/2024 7:29 AM MAT CLEANING MACHINE OPERATOR Thoracic myelopathy Case Notes [email or web address] Celine via email add Dr. David HEBERT FUSION SPINAL - POSTERIOR LUMBAR/THORACIC WITH INSTRUMENTATION 10/02/2024 7:29 AM MAT CLEANING MACHINE OPERATOR Thoracic myelopathy Case Notes [email or web address] Celine via email add Dr. David HEBERT TYPE AND SCREEN STAT 10/02/2024 6:18 AM MAT CLEANING MACHINE OPERATOR EGFR Routine 09/13/2024 11:37 AM CDT Thoracic [...] Months Results * eGFR (10/13/2024 8:12 PM MAT CLEANING MACHINE OPERATOR) eGFR 60 >=60 mL/min/1. 73 m2 [...] last reviewed 2021. Blood 10/13/2024 8:12 PM MAT CLEANING MACHINE OPERATOR 10/13/2024 8:37 PM MAT CLEANING MACHINE OPERATOR us James Robles MD LAB BLOOD ORDERABLES Final Resu lt [facility] [place] [address] * Protime-INR (10/13/2024 8:12 PM MAT CLEANING MACHINE OPERATOR) Pathologist [facility] Emergency Department PT 11.5 9.7 - 13.0 sec INR 1.06 0.90 - 1.20 [facility] Comment: Interpretive data Oral anticoagulant therapeutic ranges: Venous thromboembolism prophylaxis or treatment: 2.0-3.0 CARDIOLOGY Standard range: 2.0-3.0 High-intensity range: 2.5-3.5 Refer to indication-specific guidelines for appropriate target ranges for prosthetic heart valve replacement. Current interpretive data was last revised on 2019. Blood 10/13/2024 8:12 PM MAT CLEANING MACHINE OPERATOR 10/13/2024 8:32 PM MAT CLEANING MACHINE OPERATOR Narrative [facility] - 10/13/2024 8:38 PM MAT CLEANING MACHINE OPERATOR Baseline prior to apixaban initiation. Meghan Whyte SERVICE DOG TRAINER LAB BLOOD ORDERABLES [facility] al Result [facility] Department [place] [address] * (ABNORMAL) CBC without differential (10/13/2024 8:12 PM MAT CLEANING MACHINE OPERATOR) Pathologist [facility] Emergency Department WBC 17.1(H) 3.8 - 9.9 K/cumm Hgb 12.1(L) 13.0 - 17.5 g/dL [facility] Hct 37.0(L) 38.9 - 50.3 % [facility] Plt 214 150 - 400 K/cumm [facility] MPV 10.1 9.1 - 12.3 fL [facility] RBC 3.76(L) 4.30 - 5.80 M/cumm [facility] MCV 98.4(H) 81.3 - 96.4 fL [facility] MCH 32.2 27.1 - 33.3 pg [facility] MCHC 32.7 32.3 - 35.7 g/dL [facility] RDW CV 14.6 11.1 - 14.9 % [facility] RDW SD 52.2(H) 35.7 - 48.1 fL [facility] NRBC abs 0.00 0.00 - 0.01 K/cumm [facility] Blood 10/13/2024 8:12 PM MAT CLEANING MACHINE OPERATOR 10/13/2024 8:26 PM MAT CLEANING MACHINE OPERATOR Maria Isabel Unger NP LAB BLOOD ORDERABLES Final Result Performing Organization Address [facility] de Phone Number [facility] [place] [address] * (ABNORMAL) Hepatic function panel (10/13/2024 8:12 PM MAT CLEANING MACHINE OPERATOR) Bilirubin, total 0.2 0.1 - 1.2 mg/dL Bilirubin, direct <0.2 0.1 - 0.3 mg/dL [facility] Protein, pl 5.8(L) 6.5 - 8.5 g/dL [facility] Albumin 3.4(L) 3.5 - 5.0 g/dL [facility] Alk phos 59 40 - 130 Units/L [facility] ALT 28 7 - 55 Units/L [facility] AST 26 10 - 50 Units/L [facility] Comment:Hemolyzed; result ma y be falsely elevated Blood 10/13/2024 8:12 PM MAT CLEANING MACHINE OPERATOR 10/13/2024 8:23 PM MAT CLEANING MACHINE OPERATOR James Robles MD LAB BLOOD ORDERABLES Final Resu lt Performing Organization Address [facility] de Phone Number [facility] Department [place] [address] * (ABNORMAL) Basic metabolic panel (10/13/2024 8:12 PM MAT CLEANING MACHINE OPERATOR) Sodium 140 135 - 145 mmol/L Potassium, pl 4.7 3.3 - 4.9 mmol/L [facility] Comment:Hemolyzed; Potassium value may be falsely elevated by as much as 0.3-0.5 mmol/L. Suggest redraw and reanalysis. Chloride 107 97 - 110 mmol/L [facility] CO2 23 22 - 32 mmol/L [facility] Anion gap 10 2 - 15 mmol/L [facility] BUN 26(H) 6 - 25 mg/dL [facility] Creatinine 1.25 0.80 - 1.30 mg/dL [facility] Glucose 96 70 - 199 mg/dL [facility] Comment: Interpretive Data Fasting glucose >/= 126 [...] 8.9 8.5 - 10.3 mg/dL [facility] Blood 10/13/2024 8:12 PM MAT CLEANING MACHINE OPERATOR 10/13/2024 8:23 PM MAT CLEANING MACHINE OPERATOR us James Robles MD LAB BLOOD ORDERABLES Final Resu lt [facility] Department [place] [address] * US Vein Duplex Lower Extremity Bilateral Complete (10/13/2024 9:43 AM MAT CLEANING MACHINE OPERATOR) Anatomical Region Laterality Modality Vascular Bilateral Ultrasound 10/13/2024 9:05 AM MAT CLEANING MACHINE OPERATOR Narrative 10/13/2024 1:52 PM MAT CLEANING MACHINE OPERATOR [facility] - Department of Vascular Surgery, Vascular Laboratory [address] [place] [address] Lower Extremity Venous Ultrasound Report Patient Name: LILI DELGADO F : 1950 (74y ) Study Date: 10/13/2024 9:05:32 AM Gender: M Tech: SAGAR Location: [id number] Ref Provider: MEGHAN WHYTE Quality: Adequate Order [...] thrombus size per hematology - FINDINGS: Performing Electrotype Servicer: Jessica Aguilar RVT. Right: Duplex scan reveals [...] on the above date to Meghan Whyte SERVICE DOG TRAINER at 9:40am. CONCLUSIONS: 1. There is acute [...] Tyshawn Mullins MD FACS 10/13/2024 1:52:11 PM MAT CLEANING MACHINE OPERATOR Procedure Note Tyshawn Mullisn MD - 10/13/2024 [facility] - Department of Vascular Surgery,Vascular Laboratory [address] [place] [address] Lower Extremity Venous Ultrasound Report Patient Name: THUS, MONTE, F : 1950 (74y ) Study Date: 10/13/2024 9:05:32 AM Gender: M Tech: Location: [id number] Ref Provider: MEGHAN WHYTE Quality: Adequate Order [...] thrombus size per hematology - FINDINGS: Performing Electrotype Servicer: Jessica Aguilar RVT. Right: Duplex scan reveals [...] Tyshawn Mullins MD FACS 10/13/2024 1:52:11 PM MAT CLEANING MACHINE OPERATOR us Meghan Stephanie Toothaker SERVICE DOG TRAINER IMG US PROCEDURES Final Result * (ABNORMAL) aPTT (10/13/2024 6:24 AM MAT CLEANING MACHINE OPERATOR) Pathologist [facility] Emergency Department aPTT 55(H) 28 - 38 sec Comment: Interpretive Data Heparin therapeutic range: 66.0 - 100.0 seconds. Range based on correlation with therapeutic heparin activity range of 0.3 - 0.7 Units/mL. Current interpretive data was last revised on 2023. Blood 10/13/2024 6:24 AM MAT CLEANING MACHINE OPERATOR 10/13/2024 6:52 AM MAT CLEANING MACHINE OPERATOR Narrative [facility] - 10/13/2024 7:17 AM MAT CLEANING MACHINE OPERATOR STAT PTT timing: - Draw 6 [...] BLOOD ORDERABLES Final Resu lt [facility] Department of Laboratories [place], [place] [id number] * (ABNORMAL) eGFR (10/12/2024 9:40 PM MAT CLEANING MACHINE OPERATOR) Pathologist [facility] Emergency Department eGFR 49(L) >=60 mL/min/1. 73 m2 Comment: [...] last reviewed 2021. Blood 10/12/2024 9:40 PM MAT CLEANING MACHINE OPERATOR 10/12/2024 11:24 PM MAT CLEANING MACHINE OPERATOR James Robles MD LAB BLOOD ORDERABLES Final Resu lt Performing Organization Address [facility] Co de Phone Number [facility] Department [place] [address] * (ABNORMAL) aPTT (10/12/2024 9:40 PM MAT CLEANING MACHINE OPERATOR) aPTT 57(H) 28 - 38 sec Comment: Interpretive Data Heparin therapeutic range: 66.0 - 100.0 seconds. Range based on correlation with therapeutic heparin activity range of 0.3 - 0.7 Units/mL. Current interpretive data was last revised on 2023. Blood 10/12/2024 9:40 PM MAT CLEANING MACHINE OPERATOR 10/12/2024 11:26 PM MAT CLEANING MACHINE OPERATOR Meghan Whyte NP LAB BLOOD ORDERABLES Fin al Result Performing Organization Address [facility] Co de Phone Number [facility] Department [place] [address] * (ABNORMAL) CBC without differential (10/12/2024 9:40 PM MAT CLEANING MACHINE OPERATOR) [facility] WBC 13.9(H) 3.8 - 9.9 K/cumm Hgb 11.4(L) 13.0 - 17.5 g/dL [facility] Hct 35.0(L) 38.9 - 50.3 % [facility] Plt 232 150 - 400 K/cumm [facility] MPV 10.5 9.1 - 12.3 fL [facility] RBC 3.59(L) 4.30 - 5.80 M/cumm [facility] MCV 97.5(H) 81.3 - 96.4 fL [facility] MCH 31.8 27.1 - 33.3 pg [facility] MCHC 32.6 32.3 - 35.7 g/dL [facility] RDW CV 14.6 11.1 - 14.9 % [facility] RDW SD 51.2(H) 35.7 - 48.1 fL [facility] NRBC abs 0.00 0.00 - 0.01 K/cumm [facility] Blood 10/12/2024 9:40 PM MAT CLEANING MACHINE OPERATOR 10/12/2024 11:24 PM MAT CLEANING MACHINE OPERATOR Maria Isabel Unger NP LAB BLOOD ORDERABLES Final Result [facility] Department [place] [address] * (ABNORMAL) Basic metabolic panel (10/12/2024 9:40 PM MAT CLEANING MACHINE OPERATOR) [facility] Sodium 144 135 - 145 mmol/L Potassium, pl 4.4 3.3 - 4.9 mmol/L [facility] Chloride 109 97 - 110 mmol/L [facility] CO2 27 22 - 32 mmol/L [facility] Anion gap 8 2 - 15 mmol/L [facility] BUN 28(H) 6 - 25 mg/dL [facility] Creatinine 1.48(H) 0.80 - 1.30 mg/dL [facility] Glucose 110 70 - 199 mg/dL [facility] Comment: Interpretive Data Fasting glucose >/= 126 [...] 8.4(L) 8.5 - 10.3 mg/dL [facility] Blood 10/12/2024 9:40 PM MAT CLEANING MACHINE OPERATOR 10/12/2024 11:24 PM MAT CLEANING MACHINE OPERATOR us James Robles MD LAB BLOOD ORDERABLES Final Resu lt [facility] [place] [address] * (ABNORMAL) aPTT (10/12/2024 6:21 AM MAT CLEANING MACHINE OPERATOR) aPTT 51(H) 28 - 38 sec Comment: Interpretive Data Heparin therapeutic range: 66.0 - 100.0 seconds. Range based on correlation with therapeutic heparin activity range of 0.3 - 0.7 Units/mL. Current interpretive data was last revised on 2023. Blood 10/12/2024 6:21 AM MAT CLEANING MACHINE OPERATOR 10/12/2024 6:49 AM MAT CLEANING MACHINE OPERATOR Narrative [facility] - 10/12/2024 6:56 AM MAT CLEANING MACHINE OPERATOR STAT PTT timing: - Draw 6 [...] ORDERABLES Final Resu lt Performing Organization Address [facility] de Phone Number [facility] Department [place] [employer] [place] [address] * (ABNORMAL) aPTT (10/12/2024 12:54 AM MAT CLEANING MACHINE OPERATOR) [facility] aPTT 51(H) 28 - 38 sec Comment: Interpretive Data Heparin therapeutic range: 66.0 - 100.0 seconds. Range based on correlation with therapeutic heparin activity range of 0.3 - 0.7 Units/mL. Current interpretive data was last revised on 2023. Blood 10/12/2024 12:5 4 AM MAT CLEANING MACHINE OPERATOR 10/12/2024 1:09 AM MAT CLEANING MACHINE OPERATOR Narrative [facility] - 10/12/2024 1:17 AM MAT CLEANING MACHINE OPERATOR STAT PTT timing: - Draw 6 [...] ORDERABLES Final Resu lt Performing Organization Address [facility] Co de Phone Number [facility] [place] [address] * (ABNORMAL) eGFR (10/11/2024 9:52 PM MAT CLEANING MACHINE OPERATOR) eGFR 42(L) >=60 mL/min/1. 73 m2 Comment: [...] last reviewed 2021. Blood 10/11/2024 9:52 PM MAT CLEANING MACHINE OPERATOR 10/11/2024 11:34 PM MAT CLEANING MACHINE OPERATOR us James Robles MD LAB BLOOD ORDERABLES Final Resu lt [facility] Department [place] [address] * (ABNORMAL) CBC without differential (10/11/2024 9:52 PM MAT CLEANING MACHINE OPERATOR) [facility] WBC 15.3(H) 3.8 - 9.9 K/cumm Hgb 10.9(L) 13.0 - 17.5 g/dL [facility] Hct 33.4(L) 38.9 - 50.3 % [facility] Plt 234 150 - 400 K/cumm [facility] MPV 10.4 9.1 - 12.3 fL [facility] RBC 3.47(L) 4.30 - 5.80 M/cumm [facility] MCV 96.3 81.3 - 96.4 fL [facility] MCH 31.4 27.1 - 33.3 pg [facility] MCHC 32.6 32.3 - 35.7 g/dL [facility] RDW CV 14.3 11.1 - 14.9 % [facility] RDW SD 49.6(H) 35.7 - 48.1 fL [facility] NRBC abs 0.00 0.00 - 0.01 K/cumm [facility] Blood 10/11/2024 9:52 PM MAT CLEANING MACHINE OPERATOR 10/11/2024 11:34 PM MAT CLEANING MACHINE OPERATOR Maria Isabel Unger NP LAB BLOOD ORDERABLES Final Result Performing Organization Address City/State/[facility] Co de Phone Number [facility] [place] [address] * (ABNORMAL) Basic metabolic panel (10/11/2024 9:52 PM MAT CLEANING MACHINE OPERATOR) Sodium 141 135 - 145 mmol/L Potassium, pl 4.6 3.3 - 4.9 mmol/L [facility] Chloride 107 97 - 110 mmol/L [facility] CO2 27 22 - 32 mmol/L [facility] Anion gap 7 2 - 15 mmol/L [facility] BUN 35(H) 6 - 25 mg/dL [facility] Creatinine 1.68(H) 0.80 - 1.30 mg/dL [facility] Glucose 115 70 - 199 mg/dL [facility] Comment: Interpretive Data Fasting glucose >/= 126 [...] 8.1(L) 8.5 - 10.3 mg/dL [facility] Blood 10/11/2024 9:52 PM MAT CLEANING MACHINE OPERATOR 10/11/2024 11:34 PM MAT CLEANING MACHINE OPERATOR James Robles MD LAB BLOOD ORDERABLES Final Resu lt Performing Organization Address [facility] Co de Phone Number [facility] Department [place] [address] * aPTT (10/11/2024 5:30 PM MAT CLEANING MACHINE OPERATOR) aPTT 33 28 - 38 sec Comment: Interpretive Data Heparin therapeutic range: 66.0 - 100.0 seconds. Range based on correlation with therapeutic heparin activity range of 0.3 - 0.7 Units/mL. Current interpretive data was last revised on 2023. Blood 10/11/2024 5:3 0 PM MAT CLEANING MACHINE OPERATOR 10/11/2024 5:59 PM MAT CLEANING MACHINE OPERATOR Narrative [facility] - 10/11/2024 6:07 PM MAT CLEANING MACHINE OPERATOR STAT PTT timing: - Draw 6 [...] ORDERABLES Final Resu lt Performing Organization Address [facility]/ZIP Co de Phone Number [facility] [place] [address] * (ABNORMAL) eGFR (10/10/2024 8:04 PM MAT CLEANING MACHINE OPERATOR) eGFR 45(L) >=60 mL/min/1. 73 m2 [...] last reviewed 2021. Blood 10/10/2024 8:04 PM MAT CLEANING MACHINE OPERATOR 10/10/2024 8:34 PM MAT CLEANING MACHINE OPERATOR us James Robles MD LAB BLOOD ORDERABLES Final Resu lt [facility] Department [place] [address] * (ABNORMAL) aPTT (10/10/2024 8:04 PM MAT CLEANING MACHINE OPERATOR) aPTT 22(L) 28 - 38 sec Comment: Interpretive Data Heparin therapeutic range: 66.0 - 100.0 seconds. Range based on correlation with therapeutic heparin activity range of 0.3 - 0.7 Units/mL. Current interpretive data was last revised on 2023. Blood 10/10/2024 8:04 PM MAT CLEANING MACHINE OPERATOR 10/10/2024 8:24 PM MAT CLEANING MACHINE OPERATOR James Robles MD LAB BLOOD ORDERABLES Final Resu lt Performing Organization Address [facility] Co de Phone Number [facility] Department [place] [employer] [place] [address] * (ABNORMAL) aPTT (10/10/2024 8:04 PM MAT CLEANING MACHINE OPERATOR) [facility] Signature aPTT 22(L) 28 - 38 sec Comment: Interpretive Data Heparin therapeutic range: 66.0 - 100.0 seconds. Range based on correlation with therapeutic heparin activity range of 0.3 - 0.7 Units/mL. Current interpretive data was last revised on 2023. Blood 10/10/2024 8:04 PM MAT CLEANING MACHINE OPERATOR 10/10/2024 8:24 PM MAT CLEANING MACHINE OPERATOR Narrative [facility] - 10/10/2024 8:33 PM MAT CLEANING MACHINE OPERATOR STAT PTT timing: - Draw 6 [...] ORDERABLES Final Resu lt Performing Organization Address [facility]/ZIP Co de Phone Number [facility] Department [place] [address] * Protime-INR (10/10/2024 8:04 PM MAT CLEANING MACHINE OPERATOR) Pathologist [facility] PT 12.0 9.7 - 13.0 sec INR 1.11 0.90 - 1.20 [facility] Comment: Interpretive data Oral anticoagulant therapeutic ranges: Venous thromboembolism prophylaxis or treatment: 2.0-3.0 CARDIOLOGY Standard range: 2.0-3.0 High-intensity range: 2.5-3.5 Refer to indication-specific guidelines for appropriate target ranges for prosthetic heart valve replacement. Current interpretive data was last revised on 2019. Blood 10/10/2024 8:04 PM MAT CLEANING MACHINE OPERATOR 10/10/2024 8:24 PM MAT CLEANING MACHINE OPERATOR us James Robles MD LAB BLOOD ORDERABLES Final Resu lt [facility] Department [place] [address] * (ABNORMAL) CBC without differential (10/10/2024 8:04 PM MAT CLEANING MACHINE OPERATOR) [facility] WBC 17.1(H) 3.8 - 9.9 K/cumm Hgb 11.6(L) 13.0 - 17.5 g/dL [facility] Hct 34.3(L) 38.9 - 50.3 % [facility] Plt 260 150 - 400 K/cumm [facility] MPV 10.3 9.1 - 12.3 fL [facility] RBC 3.62(L) 4.30 - 5.80 M/cumm [facility] MCV 94.8 81.3 - 96.4 fL [facility] MCH 32.0 27.1 - 33.3 pg [facility] MCHC 33.8 32.3 - 35.7 g/dL [facility] RDW CV 14.2 11.1 - 14.9 % [facility] RDW SD 48.3(H) 35.7 - 48.1 fL [facility] NRBC abs 0.00 0.00 - 0.01 K/cumm [facility] Blood 10/10/2024 8:04 PM MAT CLEANING MACHINE OPERATOR 10/10/2024 8:34 PM MAT CLEANING MACHINE OPERATOR us Maria Isabel Unger NP LAB BLOOD ORDERABLES Final Result [facility] Department [place] [address] * (ABNORMAL) Basic metabolic panel (10/10/2024 8:04 PM MAT CLEANING MACHINE OPERATOR) [facility] Sodium 140 135 - 145 mmol/L Potassium, pl 4.6 3.3 - 4.9 mmol/L [facility] Chloride 105 97 - 110 mmol/L [facility] CO2 24 22 - 32 mmol/L [facility] Anion gap 11 2 - 15 mmol/L [facility] BUN 32(H) 6 - 25 mg/dL [facility] Creatinine 1.59(H) 0.80 - 1.30 mg/dL [facility] Glucose 108 70 - 199 mg/dL [facility] Comment: Interpretive Data Fasting glucose >/= 126 [...] 8.4(L) 8.5 - 10.3 mg/dL [facility] Blood 10/10/2024 8:04 PM MAT CLEANING MACHINE OPERATOR 10/10/2024 8:34 PM MAT CLEANING MACHINE OPERATOR us James Robles MD LAB BLOOD ORDERABLES Final Resu lt Performing Organization Address City/[facility]/ZIP Co de Phone Number [facility] Department [place] [address] * (ABNORMAL) CBC without differential (10/10/2024 11:51 AM MAT CLEANING MACHINE OPERATOR) WBC 21.0(H) 3.8 - 9.9 K/cumm Hgb 12.0(L) 13.0 - 17.5 g/dL [facility] Hct 36.7(L) 38.9 - 50.3 % [facility] Plt 272 150 - 400 K/cumm [facility] MPV 10.4 9.1 - 12.3 fL [facility] RBC 3.84(L) 4.30 - 5.80 M/cumm [facility] MCV 95.6 81.3 - 96.4 fL [facility] MCH 31.3 27.1 - 33.3 pg [facility] MCHC 32.7 32.3 - 35.7 g/dL [facility] RDW CV 14.0 11.1 - 14.9 % [facility] RDW SD 47.8 35.7 - 48.1 fL [facility] NRBC abs 0.00 0.00 - 0.01 K/cumm [facility] Blood 10/10/2024 11:5 1 AM MAT CLEANING MACHINE OPERATOR 10/10/2024 12:26 PM MAT CLEANING MACHINE OPERATOR Narrative [facility] - 10/10/2024 12:37 PM MAT CLEANING MACHINE OPERATOR Baseline prior to heparin initiation us James Robles MD LAB BLOOD ORDERABLES Final Resu lt [facility] Department [place] [address] * (ABNORMAL) aPTT (10/10/2024 11:36 AM MAT CLEANING MACHINE OPERATOR) Pathologist [facility] aPTT 23(L) 28 - 38 sec Comment: Interpretive Data Heparin therapeutic range: 66.0 - 100.0 seconds. Range based on correlation with therapeutic heparin activity range of 0.3 - 0.7 Units/mL. Current interpretive data was last revised on 2023. Blood 10/10/2024 11:3 6 AM MAT CLEANING MACHINE OPERATOR 10/10/2024 11:47 AM MAT CLEANING MACHINE OPERATOR Narrative [facility] - 10/10/2024 12:16 PM MAT CLEANING MACHINE OPERATOR Baseline prior to heparin initiation James Robles MD LAB BLOOD ORDERABLES Final Resu lt Performing Organization Address [facility] de Phone Number [facility] [place] [address] * Protime-INR (10/10/2024 11:36 AM MAT CLEANING MACHINE OPERATOR) PT 11.3 9.7 - 13.0 sec INR 1.05 0.90 - 1.20 [facility] Comment: Interpretive data Oral anticoagulant therapeutic ranges: Venous thromboembolism prophylaxis or treatment: 2.0-3.0 CARDIOLOGY Standard range: 2.0-3.0 High-intensity range: 2.5-3.5 Refer to indication-specific guidelines for appropriate target ranges for prosthetic heart valve replacement. Current interpretive data was last revised on 2019. Blood 10/10/2024 11:3 6 AM MAT CLEANING MACHINE OPERATOR 10/10/2024 11:47 AM MAT CLEANING MACHINE OPERATOR Narrative [facility] - 10/10/2024 12:16 PM MAT CLEANING MACHINE OPERATOR Baseline prior to heparin initiation Result [facility] James Robles MD LAB BLOOD ORDERABLES Final Resu Performing Organization Address [facility] de Phone Number [facility] [place] [address] * (ABNORMAL) eGFR (10/10/2024 3:19 AM MAT CLEANING MACHINE OPERATOR) Pathologist [facility] eGFR 53(L) >=60 mL/min/1. 73 m2 Comment: [...] last reviewed 2021. Blood 10/10/2024 3:19 AM MAT CLEANING MACHINE OPERATOR 10/10/2024 5:57 AM MAT CLEANING MACHINE OPERATOR us James Robles MD LAB BLOOD ORDERABLES Final Resu lt [facility] Department [place] [address] * (ABNORMAL) CBC without differential (10/10/2024 3:19 AM MAT CLEANING MACHINE OPERATOR) WBC 18.6(H) 3.8 - 9.9 K/cumm Hgb 11.7(L) 13.0 - 17.5 g/dL [facility] Hct 35.3(L) 38.9 - 50.3 % [facility] Plt 234 150 - 400 K/cumm [facility] MPV 10.4 9.1 - 12.3 fL [facility] RBC 3.69(L) 4.30 - 5.80 M/cumm [facility] MCV 95.7 81.3 - 96.4 fL [facility] MCH 31.7 27.1 - 33.3 pg [facility] MCHC 33.1 32.3 - 35.7 g/dL [facility] RDW CV 14.1 11.1 - 14.9 % [facility] RDW SD 48.1 35.7 - 48.1 fL [facility] NRBC abs 0.00 0.00 - 0.01 K/cumm [facility] Blood 10/10/2024 3:19 AM MAT CLEANING MACHINE OPERATOR 10/10/2024 6:01 AM MAT CLEANING MACHINE OPERATOR us Maria Isabel Unger NP LAB BLOOD ORDERABLES Final Result Performing Organization Address [facility]/ZIP Co de Phone Number [facility] Department [place] [address] * (ABNORMAL) Basic metabolic panel (10/10/2024 3:19 AM MAT CLEANING MACHINE OPERATOR) [facility] Sodium 141 135 - 145 mmol/L Potassium, pl 4.2 3.3 - 4.9 mmol/L [facility] Chloride 106 97 - 110 mmol/L [facility] CO2 27 22 - 32 mmol/L [facility] Anion gap 8 2 - 15 mmol/L [facility] BUN 34(H) 6 - 25 mg/dL [facility] Creatinine 1.38(H) 0.80 - 1.30 mg/dL [facility] Glucose 95 70 - 199 mg/dL [facility] Comment: Interpretive Data Fasting glucose >/= 126 [...] 8.5 8.5 - 10.3 mg/dL [facility] Blood 10/10/2024 3:19 AM MAT CLEANING MACHINE OPERATOR 10/10/2024 5:57 AM MAT CLEANING MACHINE OPERATOR James Robles MD LAB BLOOD ORDERABLES Final Resu lt Performing Organization Address [facility]/ZIP Co de Phone Number [facility] Department [place] [address] * POCT glucose (10/09/2024 8:41 PM MAT CLEANING MACHINE OPERATOR) Glucose, POC 141 70 - 199 mg/dL Blood 10/09/2024 8:41 PM MAT CLEANING MACHINE OPERATOR 10/09/2024 8:41 PM MAT CLEANING MACHINE OPERATOR us James Robles MD LAB POCT ORDERABLES - DEVICE Fi nal Result [facility] [place] [address] * US Vein Duplex Lower Extremity Bilateral Complete (10/09/2024 10:08 AM MAT CLEANING MACHINE OPERATOR) Anatomical Region Laterality Modality Vascular Bilateral Ultrasound 10/09/2024 9:49 AM MAT CLEANING MACHINE OPERATOR Narrative 10/09/2024 11:51 AM MAT CLEANING MACHINE OPERATOR [facility] - Department of Vascular Surgery, Vascular Laboratory [address] [place] [address] Lower Extremity Venous Ultrasound Report Patient Name: LILI DELGADO F : 1950 (74y ) Study Date: 10/09/2024 9:49:45 AM Gender: M Tech: AL Location: [id number] Ref Provider: OSIRIS OLIVEIRA ?Quality: Adequate Order [...] Pain in Leg, Right - FINDINGS: Performing Electrotype Servicer: Niurka Krishna RVT. Right: Duplex scan reveals [...] on the above date to Osiris Oliveira SERVICE DOG TRAINER at 10:06 am. CONCLUSIONS: 1. There is [...] By: Tyshawn Mullins MD FACS 2024-10-09 11:50:17 MAT CLEANING MACHINE OPERATOR Procedure Note Tyshawn Mullins MD - 10/09/2024 [facility] - Department of Vascular Surgery,Vascular Laboratory [address] [place] [address] Lower Extremity Venous Ultrasound Report Patient Name: LILI DELGADO F : 1950 (74y ) Study Date: 10/09/2024 9:49:45 AM Gender: M Tech: AL Location: [id number] Ref Provider: OSIRIS OLIVEIRA Quality: Adequate Order [...] Pain in Leg, Right - FINDINGS: Performing Electrotype Servicer: Niurka Krishna RVT. Right: Duplex scan reveals [...] above. Electronically Signed By: Tyshawn Mullins MD [facility] 2024-10-09 11:50:17 MAT CLEANING MACHINE OPERATOR us Osiris Oliveira NP IMG US PROCEDURES Final Result * XR Chest 1 View (10/09/2024 7:55 AM MAT CLEANING MACHINE OPERATOR) Anatomical Region Laterality Modality Body, Chest N/A Digital Radiogra phy 10/09/2024 1:25 PM MAT CLEANING MACHINE OPERATOR Impressions 10/09/2024 4:11 PM MAT CLEANING MACHINE OPERATOR 1. ??Interval increase in left lung base atelectasis. Dictated by: Gabriel Warner M.D. The radiology attending physician has personally reviewed this study, and had reviewed and/or edited this written report and agrees with it. Electronically signed by: Austin Olsen M.D. Narrative 10/09/2024 4:11 PM MAT CLEANING MACHINE OPERATOR EXAMINATION: 1 view chest radiograph History: [...] signed by: Austin Olsen M.D. Osiris Oliveira SERVICE DOG TRAINER IMG XR PROCEDURES Final Result * (ABNORMAL) eGFR (10/08/2024 10:15 PM MAT CLEANING MACHINE OPERATOR) eGFR 55(L) >=60 mL/min/1. 73 m2 [...] reviewed 2021. Blood 10/08/2024 10:1 5 PM MAT CLEANING MACHINE OPERATOR 10/08/2024 11:56 PM MAT CLEANING MACHINE OPERATOR us Brianna Martínez SERVICE DOG TRAINER LAB BLOOD ORDERABLES Cammy ramos Result [facility] [place] [address] * (ABNORMAL) CBC without differential (10/08/2024 10:15 PM MAT CLEANING MACHINE OPERATOR) WBC 19.8(H) 3.8 - 9.9 K/cumm Hgb 11.2(L) 13.0 - 17.5 g/dL [facility] Hct 32.9(L) 38.9 - 50.3 % [facility] Plt 264 150 - 400 K/cumm [facility] MPV 10.5 9.1 - 12.3 fL [facility] RBC 3.57(L) 4.30 - 5.80 M/cumm [facility] MCV 92.2 81.3 - 96.4 fL [facility] MCH 31.4 27.1 - 33.3 pg [facility] MCHC 34.0 32.3 - 35.7 g/dL [facility] RDW CV 13.7 11.1 - 14.9 % [facility] RDW SD 45.1 35.7 - 48.1 fL [facility] NRBC abs 0.02(H) 0.00 - 0.01 K/cumm [facility] Blood 10/08/2024 10:1 5 PM MAT CLEANING MACHINE OPERATOR 10/08/2024 11:57 PM MAT CLEANING MACHINE OPERATOR us Maria Isabel Unger SERVICE DOG TRAINER LAB BLOOD [place] [address] * Phosphorus (10/08/2024 10:15 PM MAT CLEANING MACHINE OPERATOR) [facility] Phosphorus, pl 3.1 2.3 - 4.5 mg/dL Blood 10/08/2024 10:1 5 PM MAT CLEANING MACHINE OPERATOR 10/08/2024 11:56 PM MAT CLEANING MACHINE OPERATOR Brianna Martínez SERVICE DOG TRAINER LAB BLOOD ORDERABLES Cammy l Result Performing Organization Address City/[facility] Co de Phone Number [facility] [place] [address] * Magnesium (10/08/2024 10:15 PM MAT CLEANING MACHINE OPERATOR) [facility] Magnesium 2.3 1.4 - 2.5 mg/dL Blood 10/08/2024 10:1 5 PM MAT CLEANING MACHINE OPERATOR 10/08/2024 11:56 PM MAT CLEANING MACHINE OPERATOR Brianna Martínez SERVICE DOG TRAINER LAB BLOOD ORDERABLES Cammy l Result Performing Organization Address [facility] Co de Phone Number [facility] [place] [address] * (ABNORMAL) Comprehensive metabolic panel (10/08/2024 10:15 PM MAT CLEANING MACHINE OPERATOR) [facility] Sodium 141 135 - 145 mmol/L Potassium, pl 4.6 3.3 - 4.9 mmol/L [facility] Chloride 107 97 - 110 mmol/L [facility] CO2 25 22 - 32 mmol/L [facility] Anion gap 9 2 - 15 mmol/L [facility] BUN 33(H) 6 - 25 mg/dL [facility] Creatinine 1.33(H) 0.80 - 1.30 mg/dL [facility] Glucose 108 70 - 199 mg/dL [facility] Comment: Interpretive Data Fasting glucose >/= 126 [...] Calcium 8.6 8.5 - 10.3 mg/dL [facility] Bilirubin, total 0.3 0.1 - 1.2 mg/dL [facility] Protein, pl 4.8(L) 6.5 - 8.5 g/dL [facility] Albumin 2.9(L) 3.5 - 5.0 g/dL [facility] Alk phos 49 40 - 130 Units/L [facility] ALT 39 7 - 55 Units/L [facility] AST 19 10 - 50 Units/L [facility] Blood 10/08/2024 10:1 5 PM MAT CLEANING MACHINE OPERATOR 10/08/2024 11:56 PM MAT CLEANING MACHINE OPERATOR Brianna Martínez NP LAB BLOOD ORDERABLES Cammy l Result [facility] [place] [address] * Troponin I high-sensitivity (10/08/2024 11:36 AM MAT CLEANING MACHINE OPERATOR) Trop I hs 30 <=35 ng/L Comment: Interpretive Data For further hscTnI resources including the diagnostic algorithm and an aid in interpretation, copy and paste this link: [email or web address]://bjhlab.testcatalog.org/show/[email or web address] Current Interpretive Data last revised 2020. Blood 10/08/2024 11:3 6 AM MAT CLEANING MACHINE OPERATOR 10/08/2024 11:44 AM MAT CLEANING MACHINE OPERATOR Brianna Martínez NP LAB BLOOD ORDERABLES Cammy l Result [facility] [place] [address] * (ABNORMAL) Lactate (10/08/2024 8:38 AM MAT CLEANING MACHINE OPERATOR) Pathologist [facility] Lactate 2.9(H) 0.7 - 2.0 mmol/L Blood 10/08/2024 8:38 AM MAT CLEANING MACHINE OPERATOR 10/08/2024 11:44 AM MAT CLEANING MACHINE OPERATOR Brianna Martínez SERVICE DOG TRAINER LAB BLOOD ORDERABLES Cammy l Result Performing Organization Address [facility] Co de Phone Number [facility] [place] [address] * eGFR (10/07/2024 10:19 PM MAT CLEANING MACHINE OPERATOR) eGFR 62 >=60 mL/min/1. 73 m2 Comment: [...] reviewed 2021. Blood 10/07/2024 10:1 9 PM MAT CLEANING MACHINE OPERATOR 10/07/2024 11:24 PM MAT CLEANING MACHINE OPERATOR us James Robles MD LAB BLOOD ORDERABLES Final Resu lt Performing Organization Address City/[facility]/ZIP Co de Phone Number [facility] Department [place] [address] * (ABNORMAL) CBC without differential (10/07/2024 10:19 PM MAT CLEANING MACHINE OPERATOR) WBC 17.2(H) 3.8 - 9.9 K/cumm Hgb 11.4(L) 13.0 - 17.5 g/dL [facility] Hct 32.7(L) 38.9 - 50.3 % [facility] Plt 264 150 - 400 K/cumm [facility] MPV 10.6 9.1 - 12.3 fL [facility] RBC 3.58(L) 4.30 - 5.80 M/cumm [facility] MCV 91.3 81.3 - 96.4 fL [facility] MCH 31.8 27.1 - 33.3 pg [facility] MCHC 34.9 32.3 - 35.7 g/dL [facility] RDW CV 13.2 11.1 - 14.9 % [facility] RDW SD 43.6 35.7 - 48.1 fL [facility] NRBC abs 0.00 0.00 - 0.01 K/cumm [facility] Blood 10/07/2024 10:1 9 PM MAT CLEANING MACHINE OPERATOR 10/07/2024 11:24 PM MAT CLEANING MACHINE OPERATOR us Maria Isabel Unger NP LAB BLOOD ORDERABLES Final Result [facility] Department [place] [address] * (ABNORMAL) Basic metabolic panel (10/07/2024 10:19 PM MAT CLEANING MACHINE OPERATOR) Pathologist [facility] Sodium 142 135 - 145 mmol/L Potassium, pl 4.5 3.3 - 4.9 mmol/L [facility] Chloride 107 97 - 110 mmol/L [facility] CO2 26 22 - 32 mmol/L [facility] Anion gap 9 2 - 15 mmol/L [facility] BUN 33(H) 6 - 25 mg/dL [facility] Creatinine 1.21 0.80 - 1.30 mg/dL [facility] Glucose 140 70 - 199 mg/dL [facility] Comment: Interpretive Data Fasting glucose >/= 126 [...] 8.5 8.5 - 10.3 mg/dL [facility] Blood 10/07/2024 10:1 9 PM MAT CLEANING MACHINE OPERATOR 10/07/2024 11:24 PM MAT CLEANING MACHINE OPERATOR us James Robles MD LAB BLOOD ORDERABLES Final Resu lt [facility] [place] [address] * (ABNORMAL) Lactate, whole blood (10/07/2024 9:09 AM MAT CLEANING MACHINE OPERATOR) Pathologist [facility] Department Lactate, bld 3.4(H) 0.7 - 2.0 mmol/L Blood 10/07/2024 9:09 AM MAT CLEANING MACHINE OPERATOR 10/07/2024 9:15 AM MAT CLEANING MACHINE OPERATOR us Brianna Martínez NP LAB BLOOD ORDERABLES Cammy l Result [facility] [place] [address] * (ABNORMAL) Urinalysis reflex to microscopic and culture Urine (10/07/2024 5:37 AM MAT CLEANING MACHINE OPERATOR) Color, ur Straw Yellow Clarity, ur Clear Clear [facility] Specific gravity, ur 1.013 1.003 - 1.030 [facility] pH, urine 7.0 [facility] Comment: Interpretive Data ? Urine pH is affected by diet, medications, systemic acid-base disturbances, and renal tubular function. ??pH may affect urinary stone formation. ??For example, urine pH below 6.0 may help reduce the tendency for calcium phosphate stones and pH greater than 6.0 may reduce the tendency for uric acid stone formation. Source: [facility] Current Interpretive Data was last revised on 2017 Protein, ur ql Negative Negative [facility] Glucose, ur ql Negative Negative [facility] Ketones, ur Negative Negative [facility] Bilirubin, ur Negative Negative [facility] Blood, ur Trace(A) Negative [facility] Urobilinogen, ur <2.0 <2.0 mg/dL [facility] Nitrite, ur Negative Negative [facility] Leukocyte esterase, ur Negative Negative [facility] UA reflex comment Reflex to microscopic UA will be performed. [facility] Urine 10/07/2024 5:37 AM MAT CLEANING MACHINE OPERATOR 10/07/2024 5:46 AM MAT CLEANING MACHINE OPERATOR James Robles MD LAB MICROBIOLOGY - GENERAL RAYMOND JEFFERY Final Result [facility] Department [place] [address] * Blood culture Blood (10/07/2024 5:37 AM MAT CLEANING MACHINE OPERATOR) Report Final Report: No growth Blood 10/07/2024 5:37 AM MAT CLEANING MACHINE OPERATOR 10/07/2024 7:00 AM MAT CLEANING MACHINE OPERATOR Narrative [facility] - 10/11/2024 7:00 AM MAT CLEANING MACHINE OPERATOR Collection->Peripheral 1. ?Blood cultures are incubated [...] organism identification may be performed using the [facility] Gram-Positive Blood Culture Assay. This assay detects microbial DNA in positive blood culture broth via hybridization of target DNA to capture oligonucleotides on a microarray. This assay has been cleared by the [place] Food and Drug Administration and its performance characteristics have been verified by the [facility]. 5. ?For questions about this culture, contact the Microbiology Laboratory at [phone]. Interpretive data was last revised on 2020. aJmes Robles MD LAB MICROBIOLOGY - GENERAL RAYMOND JEFFERY Final Result [facility] Department [place] [address] * Blood culture Blood (10/07/2024 5:37 AM MAT CLEANING MACHINE OPERATOR) Report Final Report: No growth Blood 10/07/2024 5:37 AM MAT CLEANING MACHINE OPERATOR 10/07/2024 6:07 AM MAT CLEANING MACHINE OPERATOR Narrative [facility] - 10/11/2024 7:00 AM MAT CLEANING MACHINE OPERATOR Collection->Peripheral 1. ?Blood cultures are incubated [...] organism identification may be performed using the [employer] Gram-Positive Blood Culture Assay. This assay detects microbial DNA in positive blood culture broth via hybridization of target DNA to capture oligonucleotides on a microarray. This assay has been cleared by the [place] Food and Drug Administration and its performance characteristics have been verified by the [facility]. 5. ?For questions about this culture, contact the Microbiology Laboratory at [phone]. Interpretive data was last revised on 2020. James Robles MD LAB MICROBIOLOGY - GENERAL ORDE RABLES Final Result Performing Organization Address City/[facility]/ZIP Co de Phone Number [facility] Department [place] [address] * (ABNORMAL) Urinalysis, microscopic only (10/07/2024 5:37 AM MAT CLEANING MACHINE OPERATOR) WBC, ur 0-5 0 - 5 /HPF RBC, ur 11-20(A) 0 - 2 /HPF [facility] Mucous, ur Present(A) [facility] Culture Reflex Comment Reflex conditions for urine culture (WBC >10) not met. [facility] Urine 10/07/2024 5:37 AM MAT CLEANING MACHINE OPERATOR 10/07/2024 5:46 AM MAT CLEANING MACHINE OPERATOR James Robles MD LAB URINE ORDERABLES Final Resu lt Performing Organization Address City/[facility]/ZIP Co de Phone Number [facility] Department [place] [address] * XR Chest 1 View (10/07/2024 5:18 AM MAT CLEANING MACHINE OPERATOR) Anatomical Region Laterality Modality Body, Chest N/A Computed Radiogr aphy 10/07/2024 7:05 AM MAT CLEANING MACHINE OPERATOR Impressions 10/07/2024 7:05 AM MAT CLEANING MACHINE OPERATOR The current study is compared with the prior radiograph dated ??10/02/2024. ??Spine stimulator is present. ??The heart and mediastinal contours are normal. ??There is no mass or consolidation. There is no lymphadenopathy. ??There are no pleural effusions. ??There is no pneumothorax. There is no interval change. Electronically signed by: Lauren Cantrell M.D. Narrative 10/07/2024 7:05 AM MAT CLEANING MACHINE OPERATOR EXAMINATION: 1 view chest radiograph Procedure [...] (ABNORMAL) Lactate, whole blood (10/06/2024 9:30 PM MAT CLEANING MACHINE OPERATOR) Lactate, bld 2.7(H) 0.7 - 2.0 mmol/L Blood 10/06/2024 9:30 PM MAT CLEANING MACHINE OPERATOR 10/06/2024 9:30 PM MAT CLEANING MACHINE OPERATOR us Tamanna Porras SERVICE DOG TRAINER LAB BLOOD ORDERABLES Final Resul t [facility] Department [place] [address] * eGFR (10/06/2024 9:16 PM MAT CLEANING MACHINE OPERATOR) eGFR 61 >=60 mL/min/1. 73 m2 [...] last reviewed 2021. Blood 10/06/2024 9:16 PM MAT CLEANING MACHINE OPERATOR 10/06/2024 9:34 PM MAT CLEANING MACHINE OPERATOR us James Robles MD LAB BLOOD ORDERABLES Final Resu lt [facility] Department [place] [address] * (ABNORMAL) CBC without differential (10/06/2024 9:16 PM MAT CLEANING MACHINE OPERATOR) [facility] WBC 17.1(H) 3.8 - 9.9 K/cumm Hgb 10.8(L) 13.0 - 17.5 g/dL [facility] Hct 30.7(L) 38.9 - 50.3 % [facility] Plt 256 150 - 400 K/cumm [facility] MPV 10.3 9.1 - 12.3 fL [facility] RBC 3.40(L) 4.30 - 5.80 M/cumm [facility] MCV 90.3 81.3 - 96.4 fL [facility] MCH 31.8 27.1 - 33.3 pg [facility] MCHC 35.2 32.3 - 35.7 g/dL [facility] RDW CV 13.1 11.1 - 14.9 % [facility] RDW SD 43.2 35.7 - 48.1 fL [facility] NRBC abs 0.00 0.00 - 0.01 K/cumm [facility] Blood 10/06/2024 9:16 PM MAT CLEANING MACHINE OPERATOR 10/06/2024 9:34 PM MAT CLEANING MACHINE OPERATOR Maria Isabel Unger NP LAB BLOOD ORDERABLES Final Result [facility] [place] [address] * (ABNORMAL) Basic metabolic panel (10/06/2024 9:16 PM MAT CLEANING MACHINE OPERATOR) Sodium 140 135 - 145 mmol/L Potassium, pl 4.7 3.3 - 4.9 mmol/L [facility] Chloride 105 97 - 110 mmol/L [facility] CO2 25 22 - 32 mmol/L [facility] Anion gap 10 2 - 15 mmol/L [facility] BUN 32(H) 6 - 25 mg/dL [facility] Creatinine 1.22 0.80 - 1.30 mg/dL [facility] Glucose 152 70 - 199 mg/dL [facility] Comment: Interpretive Data Fasting glucose >/= 126 [...] Calcium 8.7 8.5 - 10.3 mg/dL [facility] Blood 10/06/2024 9:16 PM MAT CLEANING MACHINE OPERATOR 10/06/2024 9:34 PM MAT CLEANING MACHINE OPERATOR us James Robles MD LAB BLOOD ORDERABLES Final Resu lt [facility] [place] [address] * eGFR (10/05/2024 10:43 PM MAT CLEANING MACHINE OPERATOR) eGFR 67 >=60 mL/min/1. 73 m2 Comment: [...] reviewed 2021. Blood 10/05/2024 10:4 3 PM MAT CLEANING MACHINE OPERATOR 10/05/2024 11:10 PM MAT CLEANING MACHINE OPERATOR us James Robles MD LAB BLOOD ORDERABLES Final Resu lt [facility] [place] [address] * (ABNORMAL) Lactate, whole blood (10/05/2024 10:43 PM MAT CLEANING MACHINE OPERATOR) Pathologist [facility] Lactate, bld 2.2(H) 0.7 - 2.0 mmol/L Blood 10/05/2024 10:4 3 PM MAT CLEANING MACHINE OPERATOR 10/05/2024 11:07 PM MAT CLEANING MACHINE OPERATOR us Tamanna Porras NP LAB BLOOD ORDERABLES Final Resul t Performing Organization Address City/[facility] Co de Phone Number [facility] [place] [address] * (ABNORMAL) CBC without differential (10/05/2024 10:43 PM MAT CLEANING MACHINE OPERATOR) [facility] WBC 16.5(H) 3.8 - 9.9 K/cumm Hgb 10.5(L) 13.0 - 17.5 g/dL [facility] Hct 31.4(L) 38.9 - 50.3 % [facility] Plt 238 150 - 400 K/cumm [facility] MPV 10.7 9.1 - 12.3 fL [facility] RBC 3.37(L) 4.30 - 5.80 M/cumm [facility] MCV 93.2 81.3 - 96.4 fL [facility] MCH 31.2 27.1 - 33.3 pg [facility] MCHC 33.4 32.3 - 35.7 g/dL [facility] RDW CV 13.3 11.1 - 14.9 % [facility] RDW SD 45.3 35.7 - 48.1 fL [facility] NRBC abs 0.00 0.00 - 0.01 K/cumm [facility] Blood 10/05/2024 10:4 3 PM MAT CLEANING MACHINE OPERATOR 10/05/2024 11:11 PM MAT CLEANING MACHINE OPERATOR us Maria Isabel Unger NP LAB BLOOD ORDERABLES Final Result Performing Organization Address City/[facility]/ZIP Co de Phone Number [facility] Department [place] [address] * (ABNORMAL) Basic metabolic panel (10/05/2024 10:43 PM MAT CLEANING MACHINE OPERATOR) [facility] Sodium 143 135 - 145 mmol/L Potassium, pl 4.4 3.3 - 4.9 mmol/L [facility] Chloride 108 97 - 110 mmol/L [facility] CO2 25 22 - 32 mmol/L [facility] Anion gap 10 2 - 15 mmol/L [facility] BUN 30(H) 6 - 25 mg/dL [facility] Creatinine 1.14 0.80 - 1.30 mg/dL [facility] Glucose 139 70 - 199 mg/dL [facility] Comment: Interpretive Data Fasting glucose >/= 126 [...] 8.8 8.5 - 10.3 mg/dL [facility] Blood 10/05/2024 10:4 3 PM MAT CLEANING MACHINE OPERATOR 10/05/2024 11:10 PM MAT CLEANING MACHINE OPERATOR us James Robles MD LAB BLOOD ORDERABLES Final Resu lt Performing Organization Address [facility] Co de Phone Number [facility] [place] [address] * (ABNORMAL) Troponin I high-sensitivity (10/04/2024 8:49 PM MAT CLEANING MACHINE OPERATOR) Trop I hs 128(H) <=35 ng/L Comment: Interpretive Data For further hscTnI resources including the diagnostic algorithm and an aid in interpretation, copy and paste this link: https://bjhlab.testcatalog.org/show/[email or web address] Current Interpretive Data last revised 2020. Blood 10/04/2024 8:49 PM MAT CLEANING MACHINE OPERATOR 10/04/2024 9:06 PM MAT CLEANING MACHINE OPERATOR us Tamanna Porras SERVICE DOG TRAINER LAB BLOOD ORDERABLES Final Resul t Performing Organization Address City/[facility]/ZIP Co de Phone Number [facility] [place] [address] * Calcium, ionized, whole blood (10/04/2024 8:49 PM MAT CLEANING MACHINE OPERATOR) [facility] Ca, ionized, bld 5.10 4.50 - 5.10 mg/dL Blood 10/04/2024 8:49 PM MAT CLEANING MACHINE OPERATOR 10/04/2024 9:00 PM MAT CLEANING MACHINE OPERATOR Tamanna Porras SERVICE DOG TRAINER LAB BLOOD ORDERABLES Final Resul t Performing Organization Address City/[facility] Co de Phone Number [facility] Department [place] [address] * (ABNORMAL) eGFR (10/04/2024 8:49 PM MAT CLEANING MACHINE OPERATOR) Pathologist [facility] eGFR 57(L) >=60 mL/min/1. 73 m2 Comment: [...] last reviewed 2021. Blood 10/04/2024 8:49 PM MAT CLEANING MACHINE OPERATOR 10/04/2024 9:06 PM MAT CLEANING MACHINE OPERATOR us James Robles MD LAB BLOOD ORDERABLES Final Resu lt [facility] [place] [address] * (ABNORMAL) Differential, auto (10/04/2024 8:49 PM MAT CLEANING MACHINE OPERATOR) Pathologist [facility] Neutrophil abs 20.1(H) 1.5 - 6.5 K/cumm Imm gran abs 0.3(H) 0.0 - 0.1 K/cumm [facility] Lymphocyte abs 1.2 0.8 - 3.3 K/cumm [facility] Monocyte abs 1.4(H) 0.2 - 0.8 K/cumm [facility] Eosinophil abs 0.0 0.0 - 0.5 K/cumm [facility] Basophil abs 0.0 0.0 - 0.1 K/cumm [facility] Neutrophil pct 87.4 % [facility] Comment: Consistent with previous result Interpretive Data Percent cell count reference ranges are not reported, since discordance with absolute values may lead to misinterpretation of CBC data. Current Interpretive Data was last revised on 2018. Imm gran pct 1.3 % [facility] Comment: Interpretive Data Percent cell count reference ranges are not reported, since discordance with absolute values may lead to misinterpretation of CBC data. Current Interpretive Data was last revised on 2018. Lymphocyte pct 5.2 % [facility] Comment: Interpretive Data Percent cell count reference ranges are not reported, since discordance with absolute values may lead to misinterpretation of CBC data. Current Interpretive Data was last revised on 2018. Monocyte pct 6.0 % [facility] Comment: Interpretive Data Percent cell count reference ranges are not reported, since discordance with absolute values may lead to misinterpretation of CBC data. Current Interpretive Data was last revised on 2018. Eosinophil pct 0.0 % [facility] Comment: Interpretive Data Percent cell count reference ranges are not reported, since discordance with absolute values may lead to misinterpretation of CBC data. Current Interpretive Data was last revised on 2018. Basophil pct 0.1 % [facility] Comment: Interpretive Data Percent cell count reference ranges are not reported, since discordance with absolute values may lead to misinterpretation of CBC data. Current Interpretive Data was last revised on 2018. Blood 10/04/2024 8:49 PM MAT CLEANING MACHINE OPERATOR 10/04/2024 9:06 PM MAT CLEANING MACHINE OPERATOR us James Robles MD LAB BLOOD ORDERABLES Final Resu lt [facility] [place] [address] * (ABNORMAL) CBC with auto differential (10/04/2024 8:49 PM MAT CLEANING MACHINE OPERATOR) WBC 23.0(H) 3.8 - 9.9 K/cumm Hgb 10.5(L) 13.0 - 17.5 g/dL [facility] Hct 31.0(L) 38.9 - 50.3 % [facility] Plt 207 150 - 400 K/cumm [facility] MPV 10.2 9.1 - 12.3 fL [facility] RBC 3.34(L) 4.30 - 5.80 M/cumm [facility] MCV 92.8 81.3 - 96.4 fL [facility] MCH 31.4 27.1 - 33.3 pg [facility] MCHC 33.9 32.3 - 35.7 g/dL [facility] RDW CV 13.6 11.1 - 14.9 % [facility] RDW SD 45.7 35.7 - 48.1 fL [facility] NRBC abs 0.00 0.00 - 0.01 K/cumm [facility] Blood 10/04/2024 8:49 PM MAT CLEANING MACHINE OPERATOR 10/04/2024 9:06 PM MAT CLEANING MACHINE OPERATOR us James Robles MD LAB BLOOD ORDERABLES Final Resu lt [facility] [place] [address] * (ABNORMAL) Lactate, whole blood (10/04/2024 8:49 PM MAT CLEANING MACHINE OPERATOR) [facility] Lactate, bld 2.5(H) 0.7 - 2.0 mmol/L Blood 10/04/2024 8:49 PM MAT CLEANING MACHINE OPERATOR 10/04/2024 9:00 PM MAT CLEANING MACHINE OPERATOR us Tamanna Porras NP LAB BLOOD ORDERABLES Final Resul t Performing Organization Address City/[facility]/ZIP Co de Phone Number [facility] Department [place] [address] * (ABNORMAL) Basic metabolic panel (10/04/2024 8:49 PM MAT CLEANING MACHINE OPERATOR) Pathologist [facility] Sodium 144 135 - 145 mmol/L Potassium, pl 4.4 3.3 - 4.9 mmol/L [facility] Chloride 113(H) 97 - 110 mmol/L [facility] CO2 22 22 - 32 mmol/L [facility] Anion gap 9 2 - 15 mmol/L [facility] BUN 24 6 - 25 mg/dL [facility] Creatinine 1.30 0.80 - 1.30 mg/dL [facility] Glucose 168 70 - 199 mg/dL [facility] Comment: Interpretive Data Fasting glucose >/= 126 [...] 8.4(L) 8.5 - 10.3 mg/dL [facility] Blood 10/04/2024 8:49 PM MAT CLEANING MACHINE OPERATOR 10/04/2024 9:06 PM MAT CLEANING MACHINE OPERATOR us James Robles MD LAB BLOOD ORDERABLES Final Resu lt [facility] [place] [address] * (ABNORMAL) Urinalysis reflex to microscopic and culture Urine (10/04/2024 1:30 PM MAT CLEANING MACHINE OPERATOR) Color, ur Straw Yellow Clarity, ur Clear Clear [facility] Specific gravity, ur 1.028 1.003 - 1.030 [facility] pH, urine 6.0 [facility] Comment: Interpretive Data ? Urine pH is affected by diet, medications, systemic acid-base disturbances, and renal tubular function. ??pH may affect urinary stone formation. ??For example, urine pH below 6.0 may help reduce the tendency for calcium phosphate stones and pH greater than 6.0 may reduce the tendency for uric acid stone formation. Source: [facility] [employer] Current Interpretive Data was last revised on 2017 Protein, ur ql 1+(A) Negative [facility] Glucose, ur ql Negative Negative [facility] Ketones, ur Negative Negative [facility] Bilirubin, ur Negative Negative [facility] Blood, ur 3+(A) Negative [facility] Urobilinogen, ur <2.0 <2.0 mg/dL [facility] Nitrite, ur Negative Negative [facility] Leukocyte esterase, ur Negative Negative [facility] UA reflex comment Reflex to microscopic UA will be performed. [facility] Urine 10/04/2024 1:30 PM MAT CLEANING MACHINE OPERATOR 10/04/2024 4:16 PM MAT CLEANING MACHINE OPERATOR Tamanna Porras NP LAB MICROBIOLOGY - GENERAL ORDER TALYA Final Result Performing Organization Address [facility] de Phone Number [facility] [place] [address] * (ABNORMAL) Urinalysis, microscopic only (10/04/2024 1:30 PM MAT CLEANING MACHINE OPERATOR) WBC, ur 0-5 0 - 5 /HPF RBC, ur >50(A) 0 - 2 /HPF [facility] Epithelial cells, squamous, ur 1-5 0 - 5 /HPF [facility] Mucous, ur Present(A) [facility] Culture Reflex Comment Reflex conditions for urine culture (WBC >10) not met. [facility] Urine 10/04/2024 1:30 PM MAT CLEANING MACHINE OPERATOR 10/04/2024 4:15 PM MAT CLEANING MACHINE OPERATOR us Tamanna Porras NP LAB URINE ORDERABLES Final Resul t Performing Organization Address [facility] de Phone Number [facility] [place] [address] * (ABNORMAL) Lactate, whole blood (10/04/2024 12:12 PM MAT CLEANING MACHINE OPERATOR) Lactate, bld 3.7(H) 0.7 - 2.0 mmol/L Blood 10/04/2024 12:1 2 PM MAT CLEANING MACHINE OPERATOR 10/04/2024 12:22 PM MAT CLEANING MACHINE OPERATOR us Tamanna Porras NP LAB BLOOD ORDERABLES Final Resul t Performing Organization Address [facility] de Phone Number [facility] [place] [address] * (ABNORMAL) Troponin I high-sensitivity 2-hour (10/04/2024 12:06 PM MAT CLEANING MACHINE OPERATOR) Pathologist [facility] Trop I hs 132(H) <=35 ng/L Comment: Interpretive Data For further hscTnI resources including the diagnostic algorithm and an aid in interpretation, copy and paste this link: https://[email or web address].testcatalog.org/show/[email or web address] Current Interpretive Data last revised 2020. Trop I hs pct delta -9 % [facility] Trop I hs interp Equivocal [facility] Blood 10/04/2024 12:0 6 PM MAT CLEANING MACHINE OPERATOR 10/04/2024 12:30 PM MAT CLEANING MACHINE OPERATOR Geraldine Leary SERVICE DOG TRAINER LAB BLOOD ORDERABLES Final Result [facility] [place] [address] * Influenza A/B, RSV, and COVID-19 PCR Nasopharyngeal (10/04/2024 9:06 AM MAT CLEANING MACHINE OPERATOR) [facility] COVID-19 RNA Negative Negative [facility] Influenza A RNA Negative Negative [facility] Influenza B RNA Negative Negative [facility] RSV RNA Negative Negative [facility] Comment: Interpretive data: Testing performed by [facility] ([phone]). This test is performed using the [employer] Xpert Xpress CoV-2/Flu/RSV plus assay. This is a multiplex, real-time reverse transcriptase PCR assay intended for the qualitative detection of nucleic acid from SARS-CoV-2, influenza A, influenza B, and respiratory syncytial virus. This assay has been cleared by the [place] Food and Drug administration. The performance characteristics have been verified by the [facility]. ??Results must be considered in the clinical context, and a negative result does not rule out infection. Interpretive Data last revised 2023 Nasopharyngeal 10/04/2024 9: 06 AM MAT CLEANING MACHINE OPERATOR 10/04/2024 10:22 AM MAT CLEANING MACHINE OPERATOR Narrative [facility] - 10/04/2024 11:17 AM MAT CLEANING MACHINE OPERATOR Is the Patient experiencing symptoms consistent with COVID?->Unknown Geraldine Leary NP LAB MICROBIOLOGY - GE NERAL ORDERABLES Final Result Performing Organization Address [facility] Co de Phone Number [facility] [place] [address] [facility] * (ABNORMAL) Troponin I high-sensitivity series (baseline, 2hr, 4hr, 6hr) (10/04/2024 9:06 AM MAT CLEANING MACHINE OPERATOR) Pathologist [facility] Trop I hs 145(H) <=35 ng/L Comment: Interpretive Data For further hscTnI resources including the diagnostic algorithm and an aid in interpretation, copy and paste this link: https://bjhlab.testcatalog.org/show/[email or web address] Current Interpretive Data last revised 2020. Blood 10/04/2024 9:06 AM MAT CLEANING MACHINE OPERATOR 10/04/2024 9:58 AM MAT CLEANING MACHINE OPERATOR Geraldine Leary NP LAB BLOOD ORDERABLES Final Result Performing Organization Address [facility] Co de Phone Number [facility] [place] [address] * (ABNORMAL) Lactate (10/04/2024 9:06 AM MAT CLEANING MACHINE OPERATOR) [facility] Lactate 4.1(C) 0.7 - 2.0 mmol/L Blood 10/04/2024 9:06 AM MAT CLEANING MACHINE OPERATOR 10/04/2024 9:58 AM MAT CLEANING MACHINE OPERATOR Geraldine Leary NP LAB BLOOD ORDERABLES Final Result Performing Organization Address [facility] Co de Phone Number [facility] [place] [address] * Critical Result Callback Chemistry (10/04/2024 9:06 AM MAT CLEANING MACHINE OPERATOR) Date Notified [id number] Time Notified 1024 [facility] TestName Lactate REYNALDO MAHARAJ Called/Read Back Arin JACOBS [facility] Credentials RN REYNALDO MAHARAJ Called By NEAL MAHARAJ Blood 10/04/2024 9:06 AM MAT CLEANING MACHINE OPERATOR 10/04/2024 9:58 AM MAT CLEANING MACHINE OPERATOR Geraldine Leary SERVICE DOG TRAINER LAB BLOOD ORDERABLES Final Result [facility] Department [place] [address] * eGFR (10/03/2024 10:36 PM MAT CLEANING MACHINE OPERATOR) eGFR 61 >=60 mL/min/1. 73 m2 [...] reviewed 2021. Blood 10/03/2024 10:3 6 PM MAT CLEANING MACHINE OPERATOR 10/03/2024 10:52 PM MAT CLEANING MACHINE OPERATOR James Robles MD LAB BLOOD ORDERABLES Final Resu lt Performing Organization Address City/[facility]/ZIP Co de Phone Number [facility] Department [place] [address] * (ABNORMAL) Basic metabolic panel (10/03/2024 10:36 PM MAT CLEANING MACHINE OPERATOR) [facility] Sodium 142 135 - 145 mmol/L Potassium, pl 4.4 3.3 - 4.9 mmol/L [facility] Chloride 113(H) 97 - 110 mmol/L [facility] CO2 22 22 - 32 mmol/L [facility] Anion gap 7 2 - 15 mmol/L [facility] BUN 17 6 - 25 mg/dL [facility] Creatinine 1.23 0.80 - 1.30 mg/dL [facility] Glucose 162 70 - 199 mg/dL [facility] Comment: Interpretive Data Fasting glucose >/= 126 [...] 8.1(L) 8.5 - 10.3 mg/dL [facility] Blood 10/03/2024 10:3 6 PM MAT CLEANING MACHINE OPERATOR 10/03/2024 10:52 PM MAT CLEANING MACHINE OPERATOR James Robles MD LAB BLOOD ORDERABLES Final Resu lt Performing Organization Address [facility]/ZIP Co de Phone Number [facility] Department [place] [address] * (ABNORMAL) Differential, auto (10/03/2024 8:30 PM MAT CLEANING MACHINE OPERATOR) Neutrophil abs 22.7(H) 1.5 - 6.5 K/cumm Imm gran abs 0.3(H) 0.0 - 0.1 K/cumm [facility] Lymphocyte abs 1.2 0.8 - 3.3 K/cumm [facility] Monocyte abs 2.1(H) 0.2 - 0.8 K/cumm [facility] Eosinophil abs 0.0 0.0 - 0.5 K/cumm [facility] Basophil abs 0.0 0.0 - 0.1 K/cumm [facility] Neutrophil pct 86.2 % [facility] Comment: Consistent with previous result Interpretive Data Percent cell count reference ranges are not reported, since discordance with absolute values may lead to misinterpretation of CBC data. Current Interpretive Data was last revised on 2018. Imm gran pct 1.1 % [facility] Comment: Interpretive Data Percent cell count reference ranges are not reported, since discordance with absolute values may lead to misinterpretation of CBC data. Current Interpretive Data was last revised on 2018. Lymphocyte pct 4.6 % [facility] Comment: Interpretive Data Percent cell count reference ranges are not reported, since discordance with absolute values may lead to misinterpretation of CBC data. Current Interpretive Data was last revised on 2018. Monocyte pct 8.0 % [facility] Comment: Interpretive Data Percent cell count reference ranges are not reported, since discordance with absolute values may lead to misinterpretation of CBC data. Current Interpretive Data was last revised on 2018. Eosinophil pct 0.0 % [facility] Comment: Interpretive Data Percent cell count reference ranges are not reported, since discordance with absolute values may lead to misinterpretation of CBC data. Current Interpretive Data was last revised on 2018. Basophil pct 0.1 % [facility] Comment: Interpretive Data Percent cell count reference ranges are not reported, since discordance with absolute values may lead to misinterpretation of CBC data. Current Interpretive Data was last revised on 2018. Blood 10/03/2024 8:30 PM MAT CLEANING MACHINE OPERATOR 10/03/2024 9:05 PM MAT CLEANING MACHINE OPERATOR James Robles MD LAB BLOOD ORDERABLES Final Resu lt [facility] Department [place] [address] * (ABNORMAL) CBC with auto differential (10/03/2024 8:30 PM MAT CLEANING MACHINE OPERATOR) Pathologist [facility] WBC 26.3(H) 3.8 - 9.9 K/cumm Hgb 11.3(L) 13.0 - 17.5 g/dL [facility] Hct 33.7(L) 38.9 - 50.3 % [facility] Plt 302 150 - 400 K/cumm [facility] MPV 10.4 9.1 - 12.3 fL [facility] RBC 3.61(L) 4.30 - 5.80 M/cumm [facility] MCV 93.4 81.3 - 96.4 fL [facility] MCH 31.3 27.1 - 33.3 pg [facility] MCHC 33.5 32.3 - 35.7 g/dL [facility] RDW CV 13.2 11.1 - 14.9 % [facility] RDW SD 45.1 35.7 - 48.1 fL [facility] NRBC abs 0.00 0.00 - 0.01 K/cumm [facility] Blood 10/03/2024 8:30 PM MAT CLEANING MACHINE OPERATOR 10/03/2024 9:05 PM MAT CLEANING MACHINE OPERATOR James Robles MD LAB BLOOD ORDERABLES Final Resu lt [facility] [place] [address] * eGFR (10/03/2024 8:25 PM MAT CLEANING MACHINE OPERATOR) Pathologist [facility] eGFR 60 >=60 mL/min/1. 73 m2 Comment: [...] last reviewed 2021. Blood 10/03/2024 8:25 PM MAT CLEANING MACHINE OPERATOR 10/03/2024 9:05 PM MAT CLEANING MACHINE OPERATOR us James Robles MD LAB BLOOD ORDERABLES Final Resu lt [facility] Department [place] [address] * (ABNORMAL) Basic metabolic panel (10/03/2024 8:25 PM MAT CLEANING MACHINE OPERATOR) Sodium 143 135 - 145 mmol/L Potassium, pl 4.1 3.3 - 4.9 mmol/L [facility] Chloride 113(H) 97 - 110 mmol/L [facility] CO2 20(L) 22 - 32 mmol/L [facility] Anion gap 10 2 - 15 mmol/L [facility] BUN 17 6 - 25 mg/dL [facility] Creatinine 1.25 0.80 - 1.30 mg/dL [facility] Glucose 163 70 - 199 mg/dL [facility] Comment: Interpretive Data Fasting glucose >/= 126 [...] 2022. Calcium 8.0(L) 8.5 - 10.3 mg/dL [facility] Blood 10/03/2024 8:25 PM MAT CLEANING MACHINE OPERATOR 10/03/2024 9:05 PM MAT CLEANING MACHINE OPERATOR us James Robles MD LAB BLOOD ORDERABLES Final Resu lt [facility] [place] [address] * ECG 12 lead (10/03/2024 2:19 PM MAT CLEANING MACHINE OPERATOR) Ventricular Rate EKG/Min 96 BPM [facility] Atrial Rate 96 BPM [facility] ID-Interval (MSEC) 242 ms [facility] QRS-Interval (MSEC) 110 ms [facility] QT-Interval (MSEC) 364 ms [facility] QTc 459 ms [facility] P [place] 69 degrees [facility] R [place] 76 degrees [facility] T [place] 1 degrees [facility] Diagnosis Sinus rhythm with 1st degree A-V block Nonspecific ST and T wave abnormality Abnormal ECG When compared with ECG of 10-MAY-2008 09:35, ID interval has increased Vent. rate has increased BY ??35 BPM Non-specific change in ST segment in Inferior leads ST now depressed in Anterolateral leads Nonspecific T wave abnormality now evident in Inferior leads QT has lengthened Confirmed by JACOBO CARSON M.D ([id number]) on 10/04/2024 10:42:26 AM [facility] 10/03/2024 2:19 PM MAT CLEANING MACHINE OPERATOR 10/04/2024 10:42 AM MAT CLEANING MACHINE OPERATOR James Robles MD ECG ORDERABLES Final Result [facility] * POCT glucose (10/03/2024 2:07 PM MAT CLEANING MACHINE OPERATOR) Glucose, POC 128 70 - 199 mg/dL Blood 10/03/2024 2:07 PM MAT CLEANING MACHINE OPERATOR 10/03/2024 2:07 PM MAT CLEANING MACHINE OPERATOR Jamse Robles MD LAB POCT ORDERABLES - DEVICE Fi nal Result [facility] Department [place] [address] * (ABNORMAL) eGFR (10/03/2024 4:58 AM MAT CLEANING MACHINE OPERATOR) eGFR 57(L) >=60 mL/min/1. 73 m2 [...] last reviewed 2021. Blood 10/03/2024 4:58 AM MAT CLEANING MACHINE OPERATOR 10/03/2024 5:32 AM MAT CLEANING MACHINE OPERATOR us James Robles MD LAB BLOOD ORDERABLES Final Resu lt [facility] [place] [address] * (ABNORMAL) Differential, auto (10/03/2024 4:58 AM MAT CLEANING MACHINE OPERATOR) Neutrophil abs 28.0(H) 1.5 - 6.5 K/cumm Imm gran abs 0.2(H) 0.0 - 0.1 K/cumm [facility] Lymphocyte abs 0.9 0.8 - 3.3 K/cumm [facility] Monocyte abs 1.5(H) 0.2 - 0.8 K/cumm [facility] Eosinophil abs 0.0 0.0 - 0.5 K/cumm [facility] Basophil abs 0.1 0.0 - 0.1 K/cumm [facility] Neutrophil pct 91.6 % [facility] Comment: Interpretive Data Percent cell count reference ranges are not reported, since discordance with absolute values may lead to misinterpretation of CBC data. Current Interpretive Data was last revised on 2018. Imm gran pct 0.6 % [facility] Comment: Interpretive Data Percent cell count reference ranges are not reported, since discordance with absolute values may lead to misinterpretation of CBC data. Current Interpretive Data was last revised on 2018. Lymphocyte pct 2.8 % [facility] Comment: Interpretive Data Percent cell count reference ranges are not reported, since discordance with absolute values may lead to misinterpretation of CBC data. Current Interpretive Data was last revised on 2018. Monocyte pct 4.8 % [facility] Comment: Interpretive Data Percent cell count reference ranges are not reported, since discordance with absolute values may lead to misinterpretation of CBC data. Current Interpretive Data was last revised on 2018. Eosinophil pct 0.0 % [facility] Comment: Interpretive Data Percent cell count reference ranges are not reported, since discordance with absolute values may lead to misinterpretation of CBC data. Current Interpretive Data was last revised on 2018. Basophil pct 0.2 % [facility] Comment: Interpretive Data Percent cell count reference ranges are not reported, since discordance with absolute values may lead to misinterpretation of CBC data. Current Interpretive Data was last revised on 2018. Blood 10/03/2024 4:58 AM MAT CLEANING MACHINE OPERATOR 10/03/2024 5:32 AM MAT CLEANING MACHINE OPERATOR James Robles MD LAB BLOOD ORDERABLES Final Resu lt [facility] [place] [address] * (ABNORMAL) CBC with auto differential (10/03/2024 4:58 AM MAT CLEANING MACHINE OPERATOR) WBC 30.5(H) 3.8 - 9.9 K/cumm Hgb 13.0 13.0 - 17.5 g/dL [facility] Hct 38.0(L) 38.9 - 50.3 % [facility] Plt 346 150 - 400 K/cumm [facility] MPV 10.2 9.1 - 12.3 fL [facility] RBC 4.14(L) 4.30 - 5.80 M/cumm [facility] MCV 91.8 81.3 - 96.4 fL [facility] MCH 31.4 27.1 - 33.3 pg [facility] MCHC 34.2 32.3 - 35.7 g/dL [facility] RDW CV 12.9 11.1 - 14.9 % [facility] RDW SD 43.0 35.7 - 48.1 fL [facility] NRBC abs 0.00 0.00 - 0.01 K/cumm [facility] Blood 10/03/2024 4:58 AM MAT CLEANING MACHINE OPERATOR 10/03/2024 5:32 AM MAT CLEANING MACHINE OPERATOR James Robles MD LAB BLOOD ORDERABLES Final Resu lt [facility] Department [place] [address] * (ABNORMAL) Basic metabolic panel (10/03/2024 4:58 AM MAT CLEANING MACHINE OPERATOR) Sodium 143 135 - 145 mmol/L Potassium, pl 4.7 3.3 - 4.9 mmol/L [facility] Chloride 111(H) 97 - 110 mmol/L [facility] CO2 22 22 - 32 mmol/L [facility] Anion gap 10 2 - 15 mmol/L [facility] BUN 14 6 - 25 mg/dL [facility] Creatinine 1.29 0.80 - 1.30 mg/dL [facility] Glucose 146 70 - 199 mg/dL [facility] Comment: Interpretive Data Fasting glucose >/= 126 [...] 8.3(L) 8.5 - 10.3 mg/dL [facility] Blood 10/03/2024 4:58 AM MAT CLEANING MACHINE OPERATOR 10/03/2024 5:32 AM MAT CLEANING MACHINE OPERATOR James Robles MD LAB BLOOD ORDERABLES Final Resu lt Performing Organization Address City/[facility]/ZIP Co de Phone Number [facility] Department [place] [address] * XR chest 1 view (Portable) (10/02/2024 9:08 PM MAT CLEANING MACHINE OPERATOR) Anatomical Region Laterality Modality Body, Chest N/A Computed Radiogr aphy 10/03/2024 8:28 AM MAT CLEANING MACHINE OPERATOR Impressions 10/03/2024 4:05 PM MAT CLEANING MACHINE OPERATOR No priors available for comparison. Spinal stimulator overlies the midthoracic spine. Ill-defined airspace opacity predominantly in the left mid and upper lung as well as right midlung which may be due to aspiration and/or pneumonia. ??No pleural effusion or pneumothorax. ??Cardiomediastinal silhouette is normal accounting for rotation. Dictated by: Neftaly eL MD The radiology attending physician has personally reviewed this study, and had reviewed and/or edited this written report and agrees with it. Electronically signed by: Saturnino James MD, PHD Narrative 10/03/2024 4:05 PM MAT CLEANING MACHINE OPERATOR EXAMINATION: 1 view chest radiograph Procedure [...] Result * (ABNORMAL) eGFR (10/02/2024 4:01 PM MAT CLEANING MACHINE OPERATOR) [facility] eGFR 57(L) >=60 mL/min/1. 73 m2 [...] last reviewed 2021. Blood 10/02/2024 4:01 PM MAT CLEANING MACHINE OPERATOR 10/02/2024 4:17 PM MAT CLEANING MACHINE OPERATOR us James Robles MD LAB BLOOD ORDERABLES Final Resu lt [facility] [place] [address] * (ABNORMAL) Differential, auto (10/02/2024 4:01 PM MAT CLEANING MACHINE OPERATOR) Neutrophil abs 14.1(H) 1.5 - 6.5 K/cumm Imm gran abs 0.1 0.0 - 0.1 K/cumm [facility] Lymphocyte abs 1.3 0.8 - 3.3 K/cumm [facility] Monocyte abs 0.7 0.2 - 0.8 K/cumm [facility] Eosinophil abs 0.0 0.0 - 0.5 K/cumm [facility] Basophil abs 0.1 0.0 - 0.1 K/cumm [facility] Neutrophil pct 86.5 % [facility] Comment: Interpretive Data Percent cell count reference ranges are not reported, since discordance with absolute values may lead to misinterpretation of CBC data. Current Interpretive Data was last revised on 2018. Imm gran pct 0.7 % [facility] Comment: Interpretive Data Percent cell count reference ranges are not reported, since discordance with absolute values may lead to misinterpretation of CBC data. Current Interpretive Data was last revised on 2018. Lymphocyte pct 8.0 % [facility] Comment: Interpretive Data Percent cell count reference ranges are not reported, since discordance with absolute values may lead to misinterpretation of CBC data. Current Interpretive Data was last revised on 2018. Monocyte pct 4.2 % [facility] Comment: Interpretive Data Percent cell count reference ranges are not reported, since discordance with absolute values may lead to misinterpretation of CBC data. Current Interpretive Data was last revised on 2018. Eosinophil pct 0.2 % [facility] Comment: Interpretive Data Percent cell count reference ranges are not reported, since discordance with absolute values may lead to misinterpretation of CBC data. Current Interpretive Data was last revised on 2018. Basophil pct 0.4 % [facility] Comment: Interpretive Data Percent cell count reference ranges are not reported, since discordance with absolute values may lead to misinterpretation of CBC data. Current Interpretive Data was last revised on 2018. Blood 10/02/2024 4:01 PM MAT CLEANING MACHINE OPERATOR 10/02/2024 4:17 PM MAT CLEANING MACHINE OPERATOR us James Robles MD LAB BLOOD ORDERABLES Final Resu lt [facility] [place] [address] * (ABNORMAL) CBC with auto differential (10/02/2024 4:01 PM MAT CLEANING MACHINE OPERATOR) WBC 16.3(H) 3.8 - 9.9 K/cumm Hgb 12.7(L) 13.0 - 17.5 g/dL [facility] Hct 38.7(L) 38.9 - 50.3 % [facility] Plt 255 150 - 400 K/cumm [facility] MPV 9.8 9.1 - 12.3 fL [facility] RBC 4.10(L) 4.30 - 5.80 M/cumm [facility] MCV 94.4 81.3 - 96.4 fL [facility] MCH 31.0 27.1 - 33.3 pg [facility] MCHC 32.8 32.3 - 35.7 g/dL [facility] RDW CV 12.9 11.1 - 14.9 % [facility] RDW SD 44.5 35.7 - 48.1 fL [facility] NRBC abs 0.00 0.00 - 0.01 K/cumm [facility] Blood 10/02/2024 4:01 PM MAT CLEANING MACHINE OPERATOR 10/02/2024 4:17 PM MAT CLEANING MACHINE OPERATOR James Robles MD LAB BLOOD ORDERABLES Final Resu lt Performing Organization Address [facility] de Phone Number [facility] [place] [address] * (ABNORMAL) aPTT (10/02/2024 4:01 PM MAT CLEANING MACHINE OPERATOR) aPTT 27(L) 28 - 38 sec Comment: Interpretive Data Heparin therapeutic range: 66.0 - 100.0 seconds. Range based on correlation with therapeutic heparin activity range of 0.3 - 0.7 Units/mL. Current interpretive data was last revised on 2023. Blood 10/02/2024 4:01 PM MAT CLEANING MACHINE OPERATOR 10/02/2024 4:16 PM MAT CLEANING MACHINE OPERATOR James Robles MD LAB BLOOD ORDERABLES Final Resu lt Performing Organization Address [facility] Co de Phone Number [facility] [place] [address] * Protime-INR (10/02/2024 4:01 PM MAT CLEANING MACHINE OPERATOR) PT 12.4 9.7 - 13.0 sec INR 1.14 0.90 - 1.20 [facility] Comment: Interpretive data Oral anticoagulant therapeutic ranges: Venous thromboembolism prophylaxis or treatment: 2.0-3.0 CARDIOLOGY Standard range: 2.0-3.0 High-intensity range: 2.5-3.5 Refer to indication-specific guidelines for appropriate target ranges for prosthetic heart valve replacement. Current interpretive data was last revised on 2019. Blood 10/02/2024 4:01 PM MAT CLEANING MACHINE OPERATOR 10/02/2024 4:16 PM MAT CLEANING MACHINE OPERATOR James Robles MD LAB BLOOD ORDERABLES Final Resu lt Performing Organization Address City/[facility] Co de Phone Number [facility] [place] [address] * Phosphorus (10/02/2024 4:01 PM MAT CLEANING MACHINE OPERATOR) Pathologist [facility] Phosphorus, pl 2.4 2.3 - 4.5 mg/dL Blood 10/02/2024 4:01 PM MAT CLEANING MACHINE OPERATOR 10/02/2024 4:17 PM MAT CLEANING MACHINE OPERATOR James Robles MD LAB BLOOD ORDERABLES Final Resu lt Performing Organization Address [facility] de Phone Number [facility] [place] [address] * Magnesium (10/02/2024 4:01 PM MAT CLEANING MACHINE OPERATOR) Magnesium 1.9 1.4 - 2.5 mg/dL Blood 10/02/2024 4:01 PM MAT CLEANING MACHINE OPERATOR 10/02/2024 4:17 PM MAT CLEANING MACHINE OPERATOR Result [facility] James Robles MD LAB BLOOD ORDERABLES Final Resu lt Performing Organization Address [facility] de Phone Number [facility] [place] [address] * (ABNORMAL) Comprehensive metabolic panel (10/02/2024 4:01 PM MAT CLEANING MACHINE OPERATOR) Sodium 141 135 - 145 mmol/L Potassium, pl 4.2 3.3 - 4.9 mmol/L [facility] Chloride 112(H) 97 - 110 mmol/L [facility] CO2 22 22 - 32 mmol/L [facility] Anion gap 7 2 - 15 mmol/L [facility] BUN 16 6 - 25 mg/dL [facility] Creatinine 1.30 0.80 - 1.30 mg/dL [facility] Glucose 118 70 - 199 mg/dL [facility] Comment: Interpretive Data Fasting glucose >/= 126 [...] 8.3(L) 8.5 - 10.3 mg/dL [facility] Bilirubin, total 0.2 0.1 - 1.2 mg/dL [facility] Protein, pl 5.5(L) 6.5 - 8.5 g/dL [facility] Albumin 3.4(L) 3.5 - 5.0 g/dL [facility] Alk phos 64 40 - 130 Units/L [facility] ALT 19 7 - 55 Units/L [facility] AST 21 10 - 50 Units/L [facility] Blood 10/02/2024 4:01 PM MAT CLEANING MACHINE OPERATOR 10/02/2024 4:17 PM MAT CLEANING MACHINE OPERATOR us James Robles MD LAB BLOOD ORDERABLES Final Resu lt [facility] Department [place] [address] * (ABNORMAL) POC Blood Gas and Chemistries, Arterial - (10/02/2024 2:30 PM MAT CLEANING MACHINE OPERATOR) pH, Art POC 7.31(L) 7.35 - 7.45 pCO2, Art POC 41 35 - 45 mmHg [facility] pO2, Art POC 264(H) 83 - [address] [facility] Na, POC 140 135 - 145 mmol/L [facility] K POC 4.0 3.3 - 4.9 mmol/L [facility] Comment: Interpretive Data Not all point of care methods assess for hemolysis. Confirm with instrument and retest K+ if not consistent with clinical signs and symptoms. Current Interpretive Data was last revised on 2024. Cl, POC 111(H) 97 - 110 mmol/L [facility] Ionized Ca, POC 4.86 4.50 - 5.10 mg/dL [facility] Glucose, POC 104 70 - 199 mg/dL [facility] Lactate, POC 1.1 0.7 - 2.2 mmol/L [facility] SO2 (cas) arterial 100(H) 90 - 95 % [facility] Base excess, POC -5.4 mmol/L [facility] Hct, POC 37.0(L) 41.4 - 51.6 % [facility] Total Hb, POC 12.4(L) 13.8 - 17.2 g/dL [facility] Blood 10/02/2024 2:30 PM MAT CLEANING MACHINE OPERATOR 10/02/2024 2:30 PM MAT CLEANING MACHINE OPERATOR James Robles MD LAB POCT ORDERABLES - DEVICE Fi nal Result Performing Organization Address City/[facility]/ZIP Co de Phone Number [facility] [place] [address] * [place] Fluoroscopy < 1 Hour (10/02/2024 2:00 PM MAT CLEANING MACHINE OPERATOR) Narrative [facility] - 10/03/2024 5:04 PM MAT CLEANING MACHINE OPERATOR The images from this study are not interpreted by Radiology. ??Please refer to the physician's procedure / OR operative note. us James Robles MD IMG FLUOROSCOPY PROCEDURES Cammy l Result Performing Organization Address City/[facility]/ZIP Co de Phone Number [facility] * Surgical pathology (10/02/2024 12:15 PM MAT CLEANING MACHINE OPERATOR) Soft tissue 10/02/2024 12:1 5 PM MAT CLEANING MACHINE OPERATOR 10/02/2024 3:15 PM MAT CLEANING MACHINE OPERATOR Narrative 10/06/2024 2:00 PM MAT CLEANING MACHINE OPERATOR [facility] [place] [address] NEUROPATHOLOGY REPORT FINAL Patient Name:LILI DELGADOAddress:[address] [place] [address] CTService:NeurosurgeryAccession #:[id number], [place] ??[id number]:[facility] OR POD 5Taken:10/02/2024Gender: MMRN :[id number]:4DOB:1950 (Age: 74)Hospital #:[id number]:10/02/2024atient Type:[facility] InpatientReported:10/06/2024 ? Physician(s): Abelardo Tijerina M.D. DIAGNOSIS: Soft tissue, arachnoid cyst wall, excision ? - Fragments of paucicellular tissue, consistent with an arachnoid cyst wall (see comment) [facility]/10/05/2024 09:33 By this signature, I attest that [...] Surgical Pathology report is available electronically in [employer]. The performance characteristics of some immunohistochemical stains, fluorescence in-situ hybridization tests and immunophenotyping by flow cytometry cited in this report (if any) were determined by the Surgical Pathology Department at [facility] as part of an ongoing senior data quality analyst program and in compliance with federally mandated [...] determined by the Surgical Pathology Department of [facility]. ??It has not been cleared or approved by the U. S. Food and Drug Administration. James Robles MD LAB PATHOLOGY ORDERABLES Final Result * (ABNORMAL) POC Blood Gas and Chemistries, Arterial - (10/02/2024 10:43 AM MAT CLEANING MACHINE OPERATOR) pH, Art POC 7.32(L) 7.35 - 7.45 pCO2, Art POC 41 35 - 45 mmHg [facility] pO2, Art POC 239(H) 83 - 108 mmHg [facility] Na, POC 141 135 - 145 mmol/L [facility] K POC 4.0 3.3 - 4.9 mmol/L [facility] Comment: Interpretive Data Not all point of care methods assess for hemolysis. Confirm with instrument and retest K+ if not consistent with clinical signs and symptoms. Current Interpretive Data was last revised on 2024. Cl, POC 112(H) 97 - 110 mmol/L [facility] Ionized Ca, POC 4.92 4.50 - 5.10 mg/dL [facility] Glucose, POC 97 70 - 199 mg/dL [facility] Lactate, POC 1.0 0.7 - 2.2 mmol/L [facility] SO2 (cas) arterial 100(H) 90 - 95 % [facility] Base excess, POC -4.7 mmol/L [facility] Hct, POC 35.0(L) 41.4 - 51.6 % [facility] Total Hb, POC 11.8(L) 13.8 - 17.2 g/dL [facility] Blood 10/02/2024 10:4 3 AM MAT CLEANING MACHINE OPERATOR 10/02/2024 10:43 AM MAT CLEANING MACHINE OPERATOR us James Robles MD LAB POCT ORDERABLES - DEVICE Fi nal Result [facility] [place] [address] * Arterial Line (10/02/2024 8:32 AM MAT CLEANING MACHINE OPERATOR) Narrative Vance Morales MD - 10/02/2024 8:32 AM MAT CLEANING MACHINE OPERATOR Vance Morales MD ? 10/02/2024 ??8:32 AM [...] Final Result * Airway (10/02/2024 8:31 AM MAT CLEANING MACHINE OPERATOR) Narrative Vance Morales MD - 10/02/2024 8:31 AM MAT CLEANING MACHINE OPERATOR Vance Morales MD ? 10/02/2024 ??8:32 AM [...] * Type and screen (10/02/2024 6:18 AM MAT CLEANING MACHINE OPERATOR) Ramu, indirect Negative ABO Rh B Negative [facility] Blood 10/02/2024 6:18 AM MAT CLEANING MACHINE OPERATOR 10/02/2024 6:26 AM MAT CLEANING MACHINE OPERATOR Narrative [facility] - 10/02/2024 7:28 AM MAT CLEANING MACHINE OPERATOR Has the patient had Daratumumab or Isatuximab in the past 6 months?->Unknown Sully Archer SERVICE DOG TRAINER LAB BLOOD BANK TEST ORDER TALYA Final Result Performing Organization Address [facility] de Phone Number [facility] [place] [address] * TYPE AND SCREEN 14 DAY (09/13/2024 11:37 AM CDT) Pathologist [facility] ABO Rh B Negative Ramu, indirect Negative [facility] Blood 09/13/2024 11:3 7 AM CDT 09/13/2024 1:50 PM CDT Narrative [facility] - 09/13/2024 3:22 PM CDT Has the patient had Daratumumab or Isatuximab in the past 6 months?->Unknown Is this test being ordered in advance for a procedure?->Yes Expected date of procedure:->10/02/24 Has the patient been transfused in the past 3 months?->No Sully Archer SERVICE DOG TRAINER LAB BLOOD BANK TEST ORDER TALYA Final Result Performing Organization Address [facility] de Phone Number [facility] Department [place] [address] * (ABNORMAL) eGFR (09/13/2024 11:37 AM CDT) Pathologist [facility] Emergency Department eGFR 46(L) >=60 mL/min/1. 73 m2 Comment: [...] BLOOD ORDERABLES Final Resu lt [facility] [place] [address] * (ABNORMAL) Differential, auto (09/13/2024 11:37 AM CDT) Neutrophil abs 6.9(H) 1.5 - 6.5 K/cumm Imm gran abs 0.1 0.0 - 0.1 K/cumm [facility] Lymphocyte abs 2.2 0.8 - 3.3 K/cumm [facility] Monocyte abs 1.2(H) 0.2 - 0.8 K/cumm [facility] Eosinophil abs 0.1 0.0 - 0.5 K/cumm [facility] Basophil abs 0.0 0.0 - 0.1 K/cumm [facility] Neutrophil pct 66.1 % [facility] Comment: Interpretive Data Percent cell count reference ranges are not reported, since discordance with absolute values may lead to misinterpretation of CBC data. Current Interpretive Data was last revised on 2018. Imm gran pct 0.5 % [facility] Comment: Interpretive Data Percent cell count reference ranges are not reported, since discordance with absolute values may lead to misinterpretation of CBC data. Current Interpretive Data was last revised on 2018. Lymphocyte pct 20.7 % [facility] Comment: Interpretive Data Percent cell count reference ranges are not reported, since discordance with absolute values may lead to misinterpretation of CBC data. Current Interpretive Data was last revised on 2018. Monocyte pct 11.8 % [facility] Comment: Interpretive Data Percent cell count reference ranges are not reported, since discordance with absolute values may lead to misinterpretation of CBC data. Current Interpretive Data was last revised on 2018. Eosinophil pct 0.5 % [facility] Comment: Interpretive Data Percent cell count reference ranges are not reported, since discordance with absolute values may lead to misinterpretation of CBC data. Current Interpretive Data was last revised on 2018. Basophil pct 0.4 % [facility] Comment: Interpretive Data Percent cell count reference ranges are not reported, since discordance with absolute values may lead to misinterpretation of CBC data. Current Interpretive Data was last revised on 2018. Blood 09/13/2024 11:3 7 AM CDT 09/13/2024 1:36 PM CDT James Robles MD LAB BLOOD ORDERABLES Final Resu lt [facility] [place] [address] * CPAP aPTT algorithm (09/13/2024 11:37 AM CDT) aPTT 30 28 - 38 sec Comment: Interpretive Data Heparin therapeutic range: 66.0 - 100.0 seconds. Range based on correlation with therapeutic heparin activity range of 0.3 - 0.7 Units/mL. Current interpretive data was last revised on 2023. Blood 09/13/2024 11:3 7 AM CDT 09/13/2024 1:35 PM CDT us Sully Archer SERVICE DOG TRAINER LAB BLOOD ORDERABLES Cammy l Result [facility] [place] [address] * (ABNORMAL) Urinalysis reflex to microscopic and culture Urine, clean voided (09/13/2024 11:37 AM CDT) Color, ur Straw Yellow Clarity, ur Clear Clear [facility] Specific gravity, ur 1.016 1.003 - 1.030 [facility] pH, urine 5.5 [facility] Comment: Interpretive Data ? Urine pH is affected by diet, medications, systemic acid-base disturbances, and renal tubular function. ??pH may affect urinary stone formation. ??For example, urine pH below 6.0 may help reduce the tendency for calcium phosphate stones and pH greater than 6.0 may reduce the tendency for uric acid stone formation. Source: [facility] [employer] Current Interpretive Data was last revised on 2017 Protein, ur ql Trace Negative [facility] Glucose, ur ql Negative Negative [facility] Ketones, ur Negative Negative [facility] Bilirubin, ur Negative Negative [facility] Blood, ur 1+(A) Negative [facility] Urobilinogen, ur <2.0 <2.0 mg/dL [facility] Nitrite, ur Negative Negative [facility] Leukocyte esterase, ur Negative Negative [facility] UA reflex comment Reflex to microscopic UA will be performed. [facility] Urine, clean voided 09/13/2024 11:37 AM CDT 09/13/2024 1:37 PM CDT us James Robles MD LAB MICROBIOLOGY - GENERAL RAYMOND JEFFERY Final Result Performing Organization Address [facility]/ZIP Co de Phone Number [facility] [place] [address] * (ABNORMAL) CBC with auto differential (09/13/2024 11:37 AM CDT) WBC 10.4(H) 3.8 - 9.9 K/cumm Hgb 14.0 13.0 - 17.5 g/dL [facility] Hct 42.7 38.9 - 50.3 % [facility] Plt 254 150 - 400 K/cumm [facility] MPV 10.5 9.1 - 12.3 fL [facility] RBC 4.47 4.30 - 5.80 M/cumm [facility] MCV 95.5 81.3 - 96.4 fL [facility] MCH 31.3 27.1 - 33.3 pg [facility] MCHC 32.8 32.3 - 35.7 g/dL [facility] RDW CV 12.7 11.1 - 14.9 % [facility] RDW SD 44.9 35.7 - 48.1 fL [facility] NRBC abs 0.00 0.00 - 0.01 K/cumm [facility] Blood 09/13/2024 11:3 7 AM CDT 09/13/2024 1:36 PM CDT James Robles MD LAB BLOOD ORDERABLES Final Resu lt Performing Organization Address City/[facility]/ZIP Co de Phone Number [facility] [place] [address] * Vitamin D 25 hydroxy (09/13/2024 11:37 AM CDT) Pathologist [facility] Vitamin D 25-OH 30 30 - 80 ng/mL Blood 09/13/2024 11:3 7 AM CDT 09/13/2024 1:34 PM CDT James Robles MD LAB BLOOD ORDERABLES Final Resu lt [facility] Department [place] [address] * (ABNORMAL) Urinalysis, microscopic only (09/13/2024 11:37 AM CDT) WBC, ur 6-10(A) 0 - 5 /HPF RBC, ur 21-50(A) 0 - 2 /HPF [facility] Epithelial cells, squamous, ur 1-5 0 - 5 /HPF [facility] Mucous, ur Present(A) [facility] Culture Reflex Comment Reflex conditions for urine culture (WBC >10) not met. [facility] Urine, clean voided 09/13/2024 11:37 AM CDT 09/13/2024 1:37 PM CDT James Robles MD LAB URINE ORDERABLES Final Resu lt Performing Organization Address [facility] Co de Phone Number [facility] [place] [address] * aPTT (09/13/2024 11:37 AM CDT) aPTT 30 28 - 38 sec Comment: Interpretive Data Heparin therapeutic range: 66.0 - 100.0 seconds. Range based on correlation with therapeutic heparin activity range of 0.3 - 0.7 Units/mL. Current interpretive data was last revised on 2023. Blood 09/13/2024 11:3 7 AM CDT 09/13/2024 1:35 PM CDT Result [facility] James Rboles MD LAB BLOOD ORDERABLES Final Resu lt Performing Organization Address [facility] Co de Phone Number [facility] [place] [address] * Protime-INR (09/13/2024 11:37 AM CDT) PT 11.0 9.7 - 13.0 sec INR 1.02 0.90 - 1.20 [facility] Comment: Interpretive data Oral anticoagulant therapeutic ranges: [...] Resu lt [facility] [place] [address] * (ABNORMAL) Basic metabolic panel (09/13/2024 11:37 AM CDT) Sodium 144 135 - 145 mmol/L Potassium, pl 3.8 3.3 - 4.9 mmol/L [facility] Chloride 105 97 - 110 mmol/L [facility] CO2 25 22 - 32 mmol/L [facility] Anion gap 14 2 - 15 mmol/L [facility] BUN 16 6 - 25 mg/dL [facility] Creatinine 1.55(H) 0.80 - 1.30 mg/dL [facility] Glucose 67(L) 70 - 199 mg/dL [facility] Comment: Interpretive Data Fasting glucose >/= 126 [...] 9.9 8.5 - 10.3 mg/dL [facility] Blood 09/13/2024 11:3 7 AM CDT 09/13/2024 1:34 PM CDT James Robles MD LAB BLOOD ORDERABLES Final Resu lt Performing Organization Address [facility]/ZIP Co de Phone Number [facility] [place] [address] from Last 3 Months Insurance MEDICARE [facility] Address: [address] [place] [address] MEDICARE [facility] [employer] Advance Directives For more information, please contact: [phone] * Full Code (Latest Code Status on File) Date Activated Date Inactivated Comments 10/02/2024 7:33 PM 10/14/2024 6:47 PM Care Teams Environmental Manager Relationship Specialty Start Date End Date Sj Benson MD [address] [place] [address] PCP - General Family Medicine 07/05/24
--- OUTSIDE RECORDS SUMMARY | 2024-11-14 20:32 | XMS_ITS | Encounter Summary ---
Author Organization [facility] Facility Care Team Providers Care Bar Host/Hostess Name Role Phone Unavailable Primary Care Provider Unavailabl e Encounter Details Date Type Department Care Team (Late st Contact Info) Description 02/08/2008 - 02/08/2008 11:59 PM CDT Hospital Encounter [facility] Hanna Nicole MD [address] [place] [address] [address] [place] [address] Pain in joint, shoulder region Social History Tobacco Use Types Packs/Day Years Used Date Smoking Tobacco: Never Assessed Sex and Gender Information Value Date Recorded Sex Assigned at Not on file 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
--- OUTSIDE RECORDS SUMMARY | 2024-11-14 20:32 | XMS_ITS | Encounter Summary ---
Author Organization [facility] [place] Address [address] [place] [address] Phone Care Team Providers Care Parts Control Clerk Name Role Phone Sj Benson MD Primary Care Provider [phone] Reason for Referral * Diagnostic Imaging (Routine) - Closed Specialty Diagnoses / Procedures Referred By Hector sosa Referred To Contact Diagnoses Low back pain, non-specific Procedures XR Scoliosis 6 or More Views Neftaly Goetz NP [address] [place] [address] Phone: tel: fax: [address] [address] Referral ID Status Reason Start Date Expiration Date Visits Re quested Visits Authorized [id number] Closed 07/10/2024 08/09/2025 1 1 Encounter Details Date Type Department Care Team (Late st Contact Info) Description 07/10/2024 Orders Only [facility] Neurosurgery [address] 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
--- OUTSIDE RECORDS SUMMARY | 2024-11-14 20:32 | XMS_ITS | Encounter Summary ---
Author Organization [facility] Healthcare Address [address] [place] [address] Care Team Providers Care Extruder Operator Horizontal Name Role Phone Sj Benson MD Primary Care Provider [phone] Reason for Referral * Diagnostic Imaging (Routine) - Closed Specialty Diagnoses / Procedures Referred By Contac t Referred To Contact Diagnoses Low back pain, non-specific Procedures XR Scoliosis 6 or More Views Neftaly Goetz NP [address] [place] [address] Phone: tel: fax: [address] [address] [place] [address] Referral ID Status Reason Start Date Expiration Date Visits Re quested Visits Authorized [id number] Closed 07/10/2024 08/09/2025 1 1 Reason for Visit * Diagnostic Imaging (Routine) - Closed Specialty Diagnoses / Procedures Referred By Contac t Referred To Contact Diagnoses Low back pain, non-specific Procedures XR Scoliosis 6 or More Views Neftaly Goetz NP [address] [place] [address] Phone: tel: fax: [address] [place] [address] [place] [address] Referral ID Status Reason Start Date Expiration Date Visits Re quested Visits Authorized [id number] Closed 07/10/2024 08/09/2025 1 1 Encounter Details Date Type Department Care Team (Latest Contact Info) Description 07/12/2024 12:25 PM CDT - 07/12/2024 11:59 PM CDT Hospital Encounter [id number] [address] [facility] [address] [place] [address] Low back pain, non-specific Discharge Disposition: Discharge [...] on file 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
--- OUTSIDE RECORDS SUMMARY | 2024-11-14 20:32 | XMS_ITS | Encounter Summary ---
Author Organization [facility] Healthcare Address [address] [place] [address] Care Team Providers Care Rubber Cutter And Shape Carver Name Role Phone Sj Benson MD Primary Care Provider [phone] Reason for Visit * MRI/CAT/PET Scan (Routine) - Closed Specialty Diagnoses / Procedures Referred By Contac t Referred To Contact Procedures Neuro MR Outside Reference Neftaly Goetz, JOSE [address] [facility] [address] [place] [address] Phone: tel: fax: Referral ID Status Reason Start Date Expiration Date Visits Re quested Visits Authorized [id number] Closed 07/13/2024 08/12/2025 1 1 Encounter Details Date Type Department Care Team (Latest Contact Info) Description 07/13/2024 10:20 PM CDT - 07/13/2024 11:59 PM CDT Hospital Encounter [facility] [address] [place] [id number] Discharge Disposition: Discharge to home or self [...] on file 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 Radiology. ??There will be no report generated by a [facility] Radiologist. Narrative [facility] - 07/13/2024 10:20 PM CDT EXAMINATION: ??Images For Reference Purposes Only us Neftaly Goetz NP IMG MRI PROCEDURES Final Result [facility] documented in this encounter Visit Diagnoses Not on filedocumented in this encounter Care Teams Rubber Cutter And Shape Carver Relationship Specialty Start Date End Date Sj Benson MD [address] [place] [address] [place] [address] PCP - General Family Medicine 07/05/24 documented as of this encounter
--- OUTSIDE RECORDS SUMMARY | 2024-11-14 20:32 | XMS_ITS | Encounter Summary ---
Author Organization [facility] Address [address] [place] [address] Phone Care Team Providers Care Panel Machine Tender Name Role Phone Sj Benson MD Primary Care Provider [phone] Encounter Details Date Type Department Care Team (Late st Contact Info) Description 07/26/2024 8:45 AM CDT Office Visit [facility] Neurosurgery [facility] Medical Office Building [address] [place] [address] James Robles MD [address] [place] [address] Thoracic myelopathy (Primary Dx) Social [...] on file 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 Wills, [facility]) - Lower back surgery - Spinal cord [...] Primary documented in this encounter Care Teams Panel Machine Tender Relationship Specialty Start Date End Date Sj Benson MD [address] [facility] [place] [address] PCP - General Family Medicine 07/05/24 documented as of this encounter
--- OUTSIDE RECORDS SUMMARY | 2024-11-14 20:32 | XMS_ITS | Encounter Summary ---
Author Organization [facility] Address [address] [facility] [address] [place] [address] Phone Care Team Providers Care Tile Finisher Name Role Phone Sj Benson MD Primary Care Provider [phone] Reason for Referral * MRI/CAT/PET Scan (Routine) - Closed Specialty Diagnoses / Procedures Referred By Hector sosa Referred To Contact Radiology Diagnoses Thoracic myelopathy Procedures CT Post Myelogram 3 Levels James Robles MD [address] [place] [address] Phone: tel: fax: [address] [address] Referral ID Status Reason Start Date Expiration Date Visits Re quested Visits Authorized [id number] Closed 07/14/2024 08/13/2025 1 1 Encounter Details Date Type Department Care Team (Late st Contact Info) Description 07/12/2024 Telephone [facility] Neurosurgery [address] [place] [address] Medical Office Building [address] [place] [address] James Robles MD [address] [place] [address] Social History Tobacco Use Types Packs/Day Years [...] on file 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 Robles [...] Prep for CT myelogram was sent via [employer]. Spoke with patient on the phone, he [...] Obtain EMG results from [facility] [employer] [facility] Pt would like to be notified of [...] and [address] Burroughs (resident in diagnostic radiology) was present and participated in the procedure. [...] and [address] Burroughs (resident in diagnostic radiology) was present and participated in the procedure. [...] and [address] Burroughs (resident in diagnostic radiology) was present and participated in the procedure. [...] and [address] Burroughs (resident in diagnostic radiology) was present and participated in the procedure. [...] myelopathy documented in this encounter Care Teams Tile Finisher Relationship Specialty Start Date End Date Sj Benson MD [address] [facility] [place] [address] PCP - General Family Medicine 07/05/24 documented as of this encounter
--- OUTSIDE RECORDS SUMMARY | 2024-11-14 20:32 | XMS_ITS | Encounter Summary ---
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
--- OUTSIDE RECORDS SUMMARY | 2024-11-14 20:32 | XMS_ITS | Encounter Summary ---
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 * Telephone Encounter - Abbie Selby CMA - 07/11/2024 2:15 PM CDT Spoke with [facility] to f/u on imaging as we have [...] - 07/10/2024 3:37 PM CDT Spoke with [facility] to request MRI Cervical imaging. They are to push imaging via powershare. Recall set to f/u on imaging prior to appt. * Telephone Encounter - Simona Monte - 07/10/2024 11:11 AM CDT BL - R/s for Neftaly HALE - 07/19/2024 to 07/12/2024 - 1st ATTEMPT - spoke w/Pt. Reason for visit: New Pt Appt Date: 07/12/2024 Time: 1.15pm Location: [facility] ([facility]) Provider ARMORED CABLE MACHINE OPERATOR - Neftaly Hale Routed: Directly to ARMORED CABLE MACHINE OPERATOR Send Letter to PCP for Insurance Auth: [...] AM CDT Department of Neurological Surgery at [facility] Spine Intake 07/05/24 Ryan F Thus 1950 [id number] Unknown, Notinfile Are you a New or [...] Imaging Done within Last Year: Yes Location: [facility] PH FAX [phone] Records Requested: Yes . HT: 6ft WT: 214 BMI: 29.0 Weakness: Yes Can't walk very far Numbness: Yes Left leg and feet Spinal Pain: lower back left knee Loss of bowel or bladder control: No Reports looseness Duration of symptoms: 18 years Spine surgery - within last 10 years: Yes Location: [facility] PH FAX [phone] Records Requested: Yes Physical therapy within last year Yes Location: [facility] PH FAX [phone] Records Requested: Yes Pain Management (Injections) within last year No Are you a current smoker on nicotine: No Reason for visit: New Pt Appt Date: 07/19/24 Time: 11:45am Location: [facility] ([facility]) Provider JOSE - Neftaly Hale Routed: Directly to ARMORED CABLE MACHINE OPERATOR Review: Remind pt to arrive 45 min [...] on filedocumented in this encounter Care Teams Entertainment Reporter Relationship Specialty Start Date End Date Sj Benson MD [address] [facility] [place] [address] PCP - General Family Medicine 07/05/24 documented as of this encounter
--- OUTSIDE RECORDS SUMMARY | 2024-11-14 20:32 | XMS_ITS | Encounter Summary ---
Author Organization [facility] Address [address] [facility] [address] [place] [address] Phone Care Team Providers Care Professor Of Economics Name Role Phone Sj Benson MD Primary Care Provider [phone] Encounter Details Date Type Department Care Team (Late st Contact Info) Description 08/16/2024 Telephone [facility] Neurosurgery [address] [facility] Medical Office Building [address] [place] [address] James Robles MD [address] [place] [address] Social History Tobacco Use Types [...] on file 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
--- OUTSIDE RECORDS SUMMARY | 2024-11-14 20:32 | XMS_ITS | Encounter Summary ---
Author Organization [facility] Address [address] [facility] [address] [place] [address] Phone Care Team Providers Care Opener Tender Name Role Phone Sj Benson MD Primary Care Provider [phone] Reason for Visit * Consultation (Routine) - Closed Specialty Diagnoses / Procedures Referred By Hector t Referred To Contact Neurosurgery Diagnoses Thoracic myelopathy Riley Huddleston MD [address] [facility] [address] [place] [address] Phone: tel: fax: James Robles MD [address] [place] [address] Phone: tel: fax: Referral ID Status Reason Start Date Expiration Date V isits Requested Visits Authorized [id number] Closed Specialty Services Required 07/05/2024 08/04/2025 1 1 Encounter Details Date Type Department Care Team (Late st Contact Info) Description 07/12/2024 1:15 PM CDT Office Visit [facility] Neurosurgery 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 Robles from [facility] neurosurgery, Dr. Garcia for consideration of reoperation [...] EHR. Neftaly Goetz APRN, ROGER- Nurse Practitioner [facility] Neuro[facility] documented in this encounter Plan of Treatment [...] 07/12/2024 documented in this encounter Care Teams Opener Tender Relationship Specialty Start Date End Date Sj Benson MD [address] [facility] [place]PT [place] [address] PCP - General Family Medicine 07/05/24 documented as of this encounter
--- OUTSIDE RECORDS SUMMARY | 2024-11-14 20:32 | XMS_ITS | Encounter Summary ---
Author Organization [facility] Facility Care Team Providers Care Public Area Supervisor Name Role Phone Unavailable Primary Care Provider Unavailabl e Encounter Details Date Type Department Care Team (Late st Contact Info) Description 06/11/2009 - 06/11/2009 11:59 PM CDT Hospital Encounter [facility] Feliciano Fraser MD [address] [place] [address] DR DEPT NEUROSURGERY, [place] [address] Degeneration of cervical intervertebral disc Social History Tobacco Use Types Packs/Day Years Used Date Smoking Tobacco: Never Assessed Sex and Gender Information Value Date Recorded Sex Assigned at Not on file 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
--- OUTSIDE RECORDS SUMMARY | 2024-11-14 20:32 | XMS_ITS | Encounter Summary ---
Author Organization [facility] Healthcare Address [address] [place] [address] Care Team Providers Care Heat Treat Inspector Name Role Phone Sj Benson MD Primary Care Provider [phone] Reason for Visit * MRI/CAT/PET Scan (Routine) - Closed Specialty Diagnoses / Procedures Referred By Contac t Referred To Contact Procedures Neuro MR Outside Reference Neftaly Goetz, JOSE [address] [facility] [address] [place] [address] Phone: tel: fax: Referral ID Status Reason Start Date Expiration Date Visits Re quested Visits Authorized [id number] Closed 07/13/2024 08/12/2025 1 1 Encounter Details Date Type Department Care Team (Latest Contact Info) Description 07/13/2024 10:19 PM CDT - 07/13/2024 11:59 PM CDT Hospital Encounter [facility] [address] [place] [phone] Discharge Disposition: Discharge to home or self [...] on file 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 ??There will be no report generated by a [facility] Radiologist. Narrative [facility] - 07/13/2024 10:19 PM CDT EXAMINATION: ??Images For Reference Purposes Only us Neftaly Goetz NP IMG MRI PROCEDURES Final Result [facility] documented in this encounter Visit Diagnoses Not on filedocumented in this encounter Care Teams Heat Treat Inspector Relationship Specialty Start Date End Date Sj Benson MD [address] [place] [address] DE[place] [address] PCP - General Family Medicine 07/05/24 documented as of this encounter
--- OUTSIDE RECORDS SUMMARY | 2024-11-14 20:32 | XMS_ITS | Encounter Summary ---
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 After hours call [phone], ask for the diagnostic neuroradiologist impersonator character) documented in this encounter Medications at Time [...] Brief Post Procedure Note Attending: Dr. Miller Trackwalker: Dr. Tovar Sedation/Anesthesia: Local Pre-Op/Pre-Procedure Diagnosis: Thoracic [...] 07/21/2024 documented in this encounter Care Teams Terry Cloth Cutter Hand Relationship Specialty Start Date End Date Sj Benson MD [address] [facility] [place] [address] PCP - General Family Medicine 07/05/24 documented as of this encounter
--- OUTSIDE RECORDS SUMMARY | 2024-11-14 20:32 | XMS_ITS | Encounter Summary ---
Author Organization [facility] Healthcare Address [address] [place] [address] Care Team Providers Care Compliance Consultant Name Role Phone Sj Benson MD Primary Care Provider [phone] Reason for Visit * MRI/CAT/PET Scan (Routine) - Closed Specialty Diagnoses / Procedures Referred By Contac t Referred To Contact Procedures Neuro MR Outside Reference James Robles MD [address] [facility] [address] [place] [address] Phone: tel: fax: Referral ID Status Reason Start Date Expiration Date Visits Re quested Visits Authorized [id number] Closed 07/11/2024 08/10/2025 1 1 Encounter Details Date Type Department Care Team (Latest Contact Info) Description 07/11/2024 6:31 PM CDT - 07/11/2024 11:59 PM CDT Hospital Encounter [facility] Radiology [facility] ([facility]) [address] [place] [address] Discharge Disposition: Discharge to home or [...] on file 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 Radiology. ??There will be no report generated by a [facility] Radiologist. Narrative [facility] - 07/11/2024 6:31 PM CDT EXAMINATION: ??Images For Reference Purposes Only us James Robles MD IMG MRI PROCEDURES Final Result [facility] documented in this encounter Visit Diagnoses Not on filedocumented in this encounter Care Teams Compliance Consultant Relationship Specialty Start Date End Date Sj Benson MD [address] [facility] [place] [address] PCP - General Family Medicine 07/05/24 documented as of this encounter
--- OUTSIDE RECORDS SUMMARY | 2024-11-14 20:32 | XMS_ITS | Encounter Summary ---
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] Procedures [place] ARTHRODESIS POSTERIOR/PSTLAT TQ 1NTRSPC THORACIC [place] ROMERO EXC ISPI LES OTH/THN DANTE IDRL THORACIC [place] ARTHRODESIS PST/PSTLAT TQ 1NTRSPC EA ADDL NTRSPC [place] POSTERIOR SEGMENTAL INSTRUMENTATION 3-6 VRT SEG [place] AUTOGRAFT SPINE SURGERY LOCAL FROM SAME INCISION [place] ALLOGRAFT FOR SPINE SURGERY ONLY MORSELIZED FUSION SPINAL - POSTERIOR LUMBAR/THORACIC WITH INSTRUMENTATION; T3-5 posterior spinal fusion with 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 LAMINECTOMY THORACIC DECOMPRESSION SPINAL CORD MONITORING Referral ID Status Reason Start Date Expiration Date Visits Re quested Visits Authorized [id number] 1 1 Encounter Details Date Type Department Care Team (Late st Contact Info) Description 10/02/2024 7:29 AM CRADLE PLACER Anesthesia Event [facility] Operating Room [address] [place] [id number] Marimar Carr MD PhD [address] [place] [address] Jeronimo Burch NP [address] [facility] [phone] [place] [address] Anesthesia Record Procedure Summary Procedure Name Responsible [...] on file Legal Sex Male 12:23 PM CRADLE PLACER Gender Identity Not on file Sexual Orientation Not on file documented as of this encounter OR Notes * Anesthesia Postprocedure Evaluation - Shanelle Castillo MD - 10/02/2024 5:16 PM CST Patient: Ryan Delgado Procedure Summary Date: 10/02/24 Room / Location: [facility] OR POD 5 ROOM [facility] / [facility] OR POD 5 Anesthesia Start: 728 Anesthesia [...] PACU to ICU. No notable events documented. LE PLACER LE PLACER * Anesthesia Procedure Notes - Vance Morales MD - 10/02/2024 8:32 AM CRADLE PLACER Associated Order(s): Arterial Line Arterial Line Patient [...] patient tolerated procedure well with no complications LE PLACER * Anesthesia Procedure Notes - Vance Morales MD - 10/02/2024 8:31 AM CRADLE PLACER Associated Order(s): Airway Airway Patient location: OR [...] of attempts: 1 Planned trial extubation: yes LE PLACER * Anesthesia Preprocedure Evaluation - Marimar Carr MD PhD - 09/13/2024 10:58 AM CDT Images from the original note were not included. 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 Pertinent negatives: hypertension ; CAD ; OH ; CABG ; valvular heart disease; valve [...] assessment status: lab tests ordered. Additional comments: Ryan Delgado is a 73 y.o. 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 All questions answered. LE PLACER documented in this encounter Plan of Treatment Not on file documented as of this encounter Procedures Procedure Name Priority Date/Time Associated Diagnosis Comments ANESTHESIA ARTERIAL LINE PLACEMENT Routine 10/02/2024 8:32 AM CRADLE PLACER ANESTHESIA INTUBATION Routine 10/02/2024 8:31 AM CRADLE PLACER documented in this encounter Results * Arterial Line (10/02/2024 8:32 AM CRADLE PLACER) Narrative Vance Morales MD - 10/02/2024 8:32 AM CRADLE PLACER Vance Morales MD ? 10/02/2024 ??8:32 AM [...] Final Result * Airway (10/02/2024 8:31 AM CRADLE PLACER) Narrative Vance Morales MD - 10/02/2024 8:31 AM CRADLE PLACER Vance Morales MD ? 10/02/2024 ??8:32 AM [...] SurgicalIndications:Prophylaxis , Surgical Given 10/02/2024 12:50 PM CRADLE PLACER 2,000 mg Given 10/02/2024 9:05 AM CRADLE PLACER 2,000 mg dexAMETHasone (DECADRON) preservative free solution intralumbar, Administer over 2 Minutes, As needed, Starting on Wed10/02/24 at 1208, Anesthesia Intra-op Given 10/02/2024 12:08 PM CRADLE PLACER 12 mg glycopyrrolate (ROBINUL) injection intravenous, Administer over 1 Minutes, As needed, Starting on Wed10/02/24 at 0757, Anesthesia Intra-op Given 10/02/2024 2:30 PM CRADLE PLACER 0.6 mg Given 10/02/2024 7:57 AM CRADLE PLACER 0.4 mg Lactated Ringer's (LR) infusion 30 mL/hr, intravenous, Continuous, Starting on Wed10/02/24 at 0630, Pre-Op Restarted 10/02/2024 3:02 PM CRADLE PLACER Rate/Dose Change 10/02/2024 8:33 AM CRADLE PLACER 30 mL/h r Rate/Dose Verify 10/02/2024 7:29 AM CRADLE PLACER 30 mL/h r lidocaine (cardiac) (XYLOCAINE) preservative free injection intravenous, As needed, Starting on Wed10/02/24 at 0735, Anesthesia Intra-op, Indications: Ventricular ArrhythmiasIndications:Ve ntricular Arrhythmias Given 10/02/2024 7:35 AM CRADLE PLACER 80 mg methadone injection syringe intravenous, As needed, Starting on Wed10/02/24 at 0735, Anesthesia Intra-op Given 10/02/2024 7:35 AM CRADLE PLACER 20 mg neostigmine (PROSTIGMIN) injection intravenous, Administer over 3 Minutes, As needed, Starting on Wed10/02/24 at 1430, Anesthesia Intra-op Given 10/02/2024 2:30 PM CRADLE PLACER 3 mg ondansetron (ZOFRAN) injection intravenous, Administer over 2 Minutes, As needed, Starting on Wed10/02/24 at 1429, Anesthesia Intra-op Given 10/02/2024 2:29 PM CRADLE PLACER 4 mg phenylephrine (DANTE-SYNEPHRINE) 1 mg/10 mL (100 mcg/mL) in sodium chloride 0.9% (premix) intravenous, As needed, Starting on Wed10/02/24 at 0735, Anesthesia Intra-op Rate/Dose Change 10/02/2024 3:31 PM CRADLE PLACER 0.5 mcg/kg/min 29.67 mL/hr Rate/Dose Change 10/02/2024 3:25 PM CRADLE PLACER 0.3 mcg/kg/min 17. 802 mL/hr Rate/Dose Change 10/02/2024 3:13 PM CRADLE PLACER 0.1 mcg/kg/min 5.9 34 mL/hr propofoL (DIPRIVAN) 10 mg/mL IV intravenous, Continuous PRN, Starting on Wed10/02/24 at 0810, Anesthesia Intra-op Rate/Dose Change 10/02/2024 1:43 PM CRADLE PLACER 80 mcg/kg/min 47.472 mL/hr Rate/Dose Change 10/02/2024 1:24 PM CRADLE PLACER 90 mcg/kg/min 53.4 06 mL/hr Given 10/02/2024 1:23 PM CRADLE PLACER 40 mg remifentaniL (ULTIVA) 2,000 mcg in sodium chloride 0.9% 40 mL (50 mcg/mL) infusion intravenous, Continuous PRN, Starting on Wed10/02/24 at 0808, Anesthesia Intra-op Rate/Dose Change 10/02/2024 3:01 PM CRADLE PLACER 0.05 mcg/kg/min 5.934 mL/hr Rate/Dose Change 10/02/2024 2:58 PM CRADLE PLACER 0.1 mcg/kg/min 11. 868 mL/hr Rate/Dose Change 10/02/2024 12:48 PM CRADLE PLACER 0.15 mcg/kg/min 1 7.802 mL/hr rocuronium (ZEMURON) injection intravenous, As needed, Starting on Wed10/02/24 at 0926, Anesthesia Intra-op Given 10/02/2024 9:26 AM CRADLE PLACER 20 mg sodium chloride 0.9% infusion intravenous, Continuous PRN, Starting on Wed10/02/24 at 0833, Anesthesia Intra-op Restarted 10/02/2024 10:25 AM CRADLE PLACER New Bag 10/02/2024 8:33 AM CRADLE PLACER 50 mL/hr New Bag 10/02/2024 7:35 AM CRADLE PLACER 50 mL/hr succinylcholine syringe intravenous, As needed, Starting on Wed10/02/24 at 0735, Anesthesia Intra-op Given 10/02/2024 7:35 AM CRADLE PLACER 100 mg vancomycin 1500 mg/515 mL in sodium chloride 0.9% (premix) 1,500 mg 1,500 mg, intravenous, Administer over 90 Minutes, Once, On Wed10/02/24 at 0630, For 1 dose, Pre-Op, Administer within 120 minutes of incision., Indications: Prophylaxis, SurgicalIndications:Prophylaxis, Surgical Given 10/02/2024 8:13 AM CRADLE PLACER 1,500 mg documented in this encounter Care Teams Holter Technician Relationship Specialty Start Date End Date Sj Benson MD [address] DEPT [place] [address] PCP - General Family Medicine 07/05/24 documented as of this encounter
--- OUTSIDE RECORDS SUMMARY | 2024-11-14 20:32 | XMS_ITS | Encounter Summary ---
Author Organization 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] Procedures HI ARTHRODESIS POSTERIOR/PSTLAT TQ 1NTRSPC THORACIC HI ROMERO EXC ISPI LES OTH/THN LUCIO IDRL THORACIC HI ARTHRODESIS PST/PSTLAT TQ 1NTRSPC EA ADDL NTRSPC HI POSTERIOR SEGMENTAL INSTRUMENTATION 3-6 VRT SEG HI AUTOGRAFT SPINE SURGERY LOCAL FROM SAME INCISION HI ALLOGRAFT FOR SPINE SURGERY ONLY MORSELIZED FUSION SPINAL - POSTERIOR LUMBAR/THORACIC WITH INSTRUMENTATION; T3-5 posterior spinal fusion with 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 LAMINECTOMY THORACIC DECOMPRESSION SPINAL CORD MONITORING Referral ID Status Reason Start Date Expiration Date Visits Re quested Visits Authorized [id number] 1 1 Encounter Details Date Type Department Care Team (Late st Contact Info) Description 10/02/2024 7:30 AM QUALITY HEAD - 10/02/2024 3:05 PM QUALITY HEAD Surgery [facility] Operating Room [address] [place] [address] James Robles MD [address] [place] [address] POSTERIOR LUMBAR/THORACIC WITH INSTRUMENTATION T3-5 laminectomy and [...] Major DO Fellow Neurosurgery 1 Case Notes [email or web address] via email add Dr. Burnette- [facility] documented in this encounter Social History Tobacco [...] on file Legal Sex Male 12:23 PM QUALITY HEAD Gender Identity Not on file Sexual Orientation Not on file documented as of this encounter Last Filed Vital Signs Vital Sign Reading Time Taken Comments Blood Pressure 138/99 10/02/2024 7:10 AM QUALITY HEAD Pulse 57 10/02/2024 7:20 AM QUALITY HEAD Temperature 36 ??C (96.8 ??F) 10/02/2024 6:00 AM QUALITY HEAD Respiratory Rate 17 10/02/2024 7:20 AM QUALITY HEAD Oxygen Saturation 98% 10/02/2024 7:20 AM QUALITY HEAD Inhaled Oxygen Concentration - - Weight 98.9 kg (218 lb) 10/02/2024 6:03 AM QUALITY HEAD Height - - Body Mass Index 29.42 10/03/2024 2:04 PM QUALITY HEAD documented in this encounter Discharge Summaries * Osiris Guillen STRATEGIC PLANNING CONSULTANT - 10/14/2024 11:16 AM CST Images from the original note were not included. Spine Inpatient Discharge Summary Admitting Provider: James Robles MD Discharge Provider: James Robles MD Primary Care Physician at Discharge: Sj Benson MD [phone] Admission Date: 10/02/2024 Discharge Date: 10/14/2024 Primary [...] 10/09 --Void trial repeated on 10/12- failed, zehng replaced --Patient will need to see outpatient [...] NS 07/16/2025 10:00 AM Jarocho Looney MD [facility] Chem/LFT Lab History Latest Ref Rng [...] says it's OK. -Do not do any billiard table mechanic that cause you to twist, push or [...] James Robles MD at 10/14/2024 1:14 PM QUALITY HEAD ITY HEAD ITY HEAD documented in this encounter Discharge Instructions * Discharge Instructions* Dc Ott JOSE - 10/09/2024 6:37 AM QUALITY HEAD Discharge Instructions Thoracic Laminectomy Your doctor has [...] blood pressure), call your family doctor or accounts administrator. You will be given a prescription for [...] donot hear regarding an appointment, please call [phone] - Neurosurgery: You should follow up in Dr. Robles's clinic in 4-6 weeks with xrays of your back. If you do not have a follow-up appointment, call to schedule one. Please arrive 30 minutes prior to your scheduled appointment. Phone numbers Appointment Scheduling: Doctor???s Office: Dr. Jaems Robles, After hours emergency: or ITY HEAD ITY HEAD ITY HEAD ITY HEAD ITY HEAD * Attachments The following attachments cannot be sent through Care Everywhere. * Deep Vein Thrombosis (AfterCare(R) Instructions(ER/ED)) (Latvian) * Apixaban (By mouth) (Latvian) documented in this encounter Medications at Time [...] Comment s Discharge to an Rehab facility [facility] documented in this encounter Progress Notes * Marla Larson RN - 10/14/2024 9:42 AM CST 10/13/24 1440 Discharge Summary Discharge Disposition Acute Rehab Specify Facility [facility] Contact Number [phone] Morris Discharge Records Transfer Form Completed;Chart Copied Recommended Discharge Level of Care Acute Rehab Actual Discharge Level of Care Acute Rehab Does Actual Level of Care Match Care Team Recommendation? Yes Post Acute Care Plan Home Care Services N/A OP Services N/A DME N/A Post Acute Care Facility Yes Referral Status Accepted Accepted Post Acute Care Location and Contact [facility] Accepted Post Acute Care Discharge Additional Assistance Does the patient need discharge transport arranged? Yes Type of Transportation Ambulance/EMS Has discharge transport been arranged? Yes Details of Transportation [facility] [phone] trip # [phone] D/C Transport Anticipated Date 10/14/24 D/C Transport Anticipated Time 1300 Per medical team, patient is medically stable for discharge at this time. Patient has been acceptedto [facility]. CM spoke with the patient/family, admissions, [...] Patient/family informed patient may require ambulance transport. web content & social media manager informed patient/family that even if the patient's insurance benefit includes ambulance transport, it may not cover the full cost of the transportation. The patient may be responsible for any [id number] cost, includingmileage beyond the nearest appropriate facility. Patient/family voiced understanding. No further case management needs identified at this time ITY HEAD * Bladimir Clark MD - 10/14/2024 7:17 [...] wean ordered. TTF. 10/07 failed void trial. Zehng replaced. Infectious workup sent. CXR negative. Rpt [...] James Robles MD at 10/14/2024 1:14 PM QUALITY HEAD ITY HEAD ITY HEAD * Tiffanie Tirado, PT - 10/13/2024 3:09 [...] treatment team and contact the PT or BOOKKEEPING ASSISTANT currently assigned to this patient. If a physical therapy clinician is not assigned to this patient, please call [phone]. 10/13/24 1509 PT Last Visit Session Type Treatment (co-treat [facility] OT 2/2 level of assist needed) PT [...] 2 reps with WW, 1 reps with CONTROL PANEL TESTER Transfers 2 Transfer From 2 Bed Transfer [...] assist: 10/07/24 10/14/24 -- Goal Details: supervision ITY HEAD * Harley Allen, OT - 10/13/2024 2:58 [...] not assigned to this patient, please call [phone]. 10/13/24 7401 General Session Type Treatment (Co-tx with PT) [...] tasks with mod A 10/04/24 10/26/24 -- ITY HEAD * Pavel Sheets MD - 10/13/2024 6:36 [...] - Heparin gtt (goal 46-70) Dispo rehab ([facility]) DVT prophylaxis: lovenox Responsible team (call resident in bold with questions) Kortney Dean Note created by Pavel Sheets MD on 10/13/2024 at 6:36 AM. Cosigned by James Robles MD at 10/13/2024 8:44 AM QUALITY HEAD ITY HEAD ITY HEAD * Harley Allen OT - 10/12/2024 10:11 [...] not assigned to this patient, please call [phone]. 10/12/24 1011 General Session Type Treatment OT [...] tasks with mod A 10/04/24 10/26/24 -- ITY HEAD * Tiffanie Tirado, PT - 10/11/2024 2:40 [...] treatment team and contact the PT or BOOKKEEPING ASSISTANT currently assigned to this patient. If a physical therapy clinician is not assigned to this patient, please call [phone]. 10/11/24 1440 PT Last Visit Session Type [...] assist: 10/07/24 10/14/24 -- Goal Details: supervision ITY HEAD * Wild Perez MD - 10/11/2024 6:09 [...] rectal Daily PRN 10 mg at 10/05/24 8667 Carrier Fluids for Secondary Infusion - 0.9% [...] Heparin gtt (goal 46-70) restarted Dispo rehab ([facility] referral sent 10/06) DVT prophylaxis: lovenox Responsible team (call resident in bold with questions) Chris Dean Note created by Wild Perez MD on 10/11/2024 at 6:08 PM. Cosigned by James Robles MD at 10/11/2024 7:37 PM QUALITY HEAD ITY HEAD ITY HEAD * Nohemi Zuleta, OT - 10/10/2024 1:16 [...] not assigned to this patient, please call [phone]. 10/10/24 1643 General Session Type Treatment OT Received On [...] tasks with mod A 10/04/24 10/11/24 -- ITY HEAD * Wild Perez MD - 10/10/2024 8:01 [...] rectal Daily PRN 10 mg at 10/05/24 2876 Carrier Fluids for Secondary Infusion - 0.9% [...] Ifnot, plan for IVCf today. Dispo rehab ([facility] referral sent 10/06) Dispo rehab (needs referrals) DVT prophylaxis: lovenox Responsible team (call resident in bold with questions) Chris Dean Note created by Wild Perez MD on 10/10/2024 at 8:01 AM. Cosigned by James Robles MD at 10/10/2024 9:20 AM QUALITY HEAD ITY HEAD ITY HEAD * Keyla Connolly, RD - 10/09/2024 5:06 [...] Adult Diet Regular Diet effective now Question: ([facility]) Diet type Answer: Regular 10/02/241932 Assessment / Impression: Pt reports eating well consuming 100% of meals, no N/V. Weight stable around 218#, no nutrition issues or concerns at this time. Pt with BM today. RD following. Keyla Connolly MS RD LD #[phone] ITY HEAD * Rae Soni - 10/09/2024 11:08 AM [...] treatment team and contact the PT or BOOKKEEPING ASSISTANT currently assigned to this patient. If a physical therapy clinician is not assigned to this patient, please call [phone]. 10/09/24 1108 PT Last Visit Session Type [...] Mike Estrada, PT at 10/09/2024 1:58 PM QUALITY HEAD ITY HEAD ITY HEAD * Wild Perez MD - 10/09/2024 7:40 [...] James Robles MD at 10/10/2024 9:20 AM QUALITY HEAD ITY HEAD ITY HEAD * Wild Perez MD - 10/08/2024 6:32 [...] Miles Rodrigez MD at 10/08/2024 9:44 PM QUALITY HEAD ITY HEAD ITY HEAD * Nicko Zee - 10/07/2024 2:08 PM [...] treatment team and contact the PT or BOOKKEEPING ASSISTANT currently assigned to this patient. If a physical therapy clinician is not assigned to this patient, please call [phone]. 10/07/24 1408 PT Last Visit Session Type [...] Roe Calles, PT at 10/07/2024 3:15 PM QUALITY HEAD ITY HEAD ITY HEAD * Osiris Guillen NP - 10/06/2024 2:41 PM CST Drain Removal Note Alligator drain x1 removed without difficulty. Sutures removed, drain pulled, tubing intact upon removal. Sterile 2x2 dressing and tape placed over insertion site. No erythema noted. Patient tolerated procedure well. RN notified of removal. Plan: - Okay to remove dressing tomorrow and leave site open to air. Osiris Guillen NP ITY HEAD * Tiffanie Tirado PT - 10/06/2024 1:34 [...] treatment team and contact the PT or BOOKKEEPING ASSISTANT currently assigned to this patient. If a physical therapy clinician is not assigned to this patient, please call [phone]. 10/06/24 1334 PT Last Visit Session Type [...] did not feel it when he went, STRATEGIC PLANNING CONSULTANT and RN notified. Pt unable to move [...] and from stand CGA 10/04/24 10/18/24 -- ITY HEAD * Harley Allen, OT - 10/06/2024 1:18 [...] not assigned to this patient, please call [phone]. 10/06/24 1816 General Session Type Treatment OT Received On [...] tasks with mod A 10/04/24 10/11/24 -- ITY HEAD * Wild Perez MD - 10/06/2024 7:50 [...] James Robles MD at 10/06/2024 1:09 PM QUALITY HEAD ITY HEAD ITY HEAD * Willy Nguyen MD - 10/05/2024 12:41 [...] plan with the ICU team and other medical/provider contracting consultant staff. Critical Care Time: I have spent 30 minutes in full attendance with this critically ill patient making frequent reassessments and decisions regarding this patient's complex medical care. Critical care time was exclusive of separately billable procedures, treating other patients and teaching time. Willy Nguyen MD Stroke/Neurointensive Attending ITY HEAD * Magali Ocampo, PT - 10/05/2024 9:34 [...] treatment team and contact the PT or BOOKKEEPING ASSISTANT currently assigned to this patient. If a physical therapy clinician is not assigned to this patient, please call [phone]. 10/05/24 0934 PT Last Visit Session Type [...] and from stand CGA 10/04/24 10/18/24 -- ITY HEAD * Florentin Dean MD - 10/05/2024 6:40 [...] James Robles MD at 10/05/2024 8:15 AM QUALITY HEAD ITY HEAD ITY HEAD * Maria Isabel Unger STRATEGIC PLANNING CONSULTANT - 10/05/2024 6:05 AM CST Neuro Critical [...] legs and feet bilaterally and arrives to [facility] for posterior lumbar-thoracic spinal fusion with instrumentation [...] fluids: IV SL Flushes: None Last BM: BOOKKEEPING ASSISTANT # Nutrition -- regular diet -- encourage [...] Willy Nguyen MD at 10/06/2024 7:25 AM QUALITY HEAD ITY HEAD ITY HEAD * Nadia Moulton - 10/04/2024 2:37 PM [...] treatment team and contact the PT or BOOKKEEPING ASSISTANT currently assigned to this patient. If a physical therapy clinician is not assigned to this patient, please call [phone]. 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 Object from Floor from a Standing [...] Arin Noriega PT at 10/04/2024 4:26 PM QUALITY HEAD ITY HEAD ITY HEAD * Taty Quezada OT - 10/04/2024 11:03 [...] not assigned to this patient, please call [phone]. 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 I have reviewed and confirmed the history, vitals, medications, laboratory and radiographic data with the ICU team. I have reviewed and discussed my treatment plan with the ICU team and other medical/provider contracting consultant staff as documented in the note [...] time. Keri Ramon M.D. Attending Physician, Neurocritical Fire Services PlumberWrecking Mechanic, Department of Neurology ITY HEAD * Florentin Dean MD - 10/04/2024 6:40 [...] James Robles MD at 10/04/2024 9:00 PM QUALITY HEAD ITY HEAD ITY HEAD * Tamanna Porras NP - 10/04/2024 6:16 [...] legs and feet bilaterally and arrives to [facility] for posterior lumbar-thoracic spinal fusion with instrumentation [...] Adult Diet Regular Diet effective now Question: ([facility]) Diet type Answer: Regular 10/02/241932 IV fluids: NS @ 10 ml/hr carrier Flushes: n/a Last BM: BOOKKEEPING ASSISTANT # Nutrition -- regular diet -- bowel [...] Keri Ramon MD at 10/04/2024 3:53 PM QUALITY HEAD ITY HEAD ITY HEAD * Wild Perez MD - 10/03/2024 7:42 [...] James Robles MD at 10/03/2024 8:15 AM QUALITY HEAD ITY HEAD ITY HEAD Associated attestation - James Robles MD - 10/03/2024 8:15 AM QUALITY HEAD I have seen and examined the patient [...] Incision dressed, drain x1 [place] [address] NNICU MAP>110 Dex 6q6 Diet: Advance as tolerated Antibiotics: Ancef & Vancomycin x 24hrs Activity Restrictions: No activity restrictions Imaging required: None If there are any issues or questions, please page Wild Perez MD at [phone] Wild Perez MD ITY HEAD documented in this encounter H&P Notes * Eliz Chung, STRATEGIC PLANNING CONSULTANT - 10/03/2024 1:48 PM CST Neuro Critical [...] legs and feet bilaterally and arrives to [facility] for posterior lumbar-thoracic spinal fusion with instrumentation [...] Adult Diet Regular Diet effective now Question: ([facility]) Diet type Answer: Regular 10/02/241932 IV fluids: NS @ 100 ml/hr Flushes: n/a Last BM: BOOKKEEPING ASSISTANT # Nutrition -- ADAT -- bowel reg [...] Keri Ramon MD at 10/04/2024 3:53 PM QUALITY HEAD ITY HEAD ITY HEAD * Meghan Major DO - 10/02/2024 6:46 [...] resection LAMINECTOMY THORACIC DECOMPRESSION SPINAL CORD MONITORING ITY HEAD ITY HEAD Source Note - Jeronimo Burch NP - 09/13/2024 10:58 AM CDT Images from the original note were not included. [facility] for Preoperative Assessment and Planning Preoperative Evaluation Record Evaluation type/location: CPAP CAM-SC Planned procedure site: [facility] (Pods 2/3/5/GENERAL COUNSEL) Date: 09/13/24 Anesthesia Evaluation Lili Delgado is [...] 2020. Pertinent negatives: hypertension ; CAD ; IA ; CABG ; valvular heart disease; valve [...] vein thrombosis (DVT) of upper extremity ([facility]) ([facility]) 09/29/2021 Essential (primary) hypertension 08/04/2021 Abnormal EKG 07/31/2021 Benign prostatic hyperplasia without urinary obstruction 10/21/2020 Gastroesophageal reflux disease without esophagitis 10/21/2020 Elevated blood-pressure reading without diagnosis of hypertension 10/02/2019 Obesity 03/15/2019 Osteoarthritis of hip 11/15/2017 Lumbar spondylosis 11/15/2017 Pain of right hip joint 11/01/2017 Neuropathy ([facility]) 11/01/2017 Prediabetes 08/10/2017 Stage 3 chronic kidney disease ([facility]) 08/10/2017 Lumbago 06/04/2009 Numbness 06/04/2009 No past [...] up:PIV placed w/o complication Ti Pressley RN ITY HEAD * Jessica Fernández RN - 10/03/2024 11:32 [...] RN Plan: Follow up: Jessica Fernández RN ITY HEAD * Olaf Pena III, MD - 10/02/2024 [...] using the electrical stimulator integrated into the Frontback evoked potential machine. Bilateral TcMEPs were recorded [...] all changes at the times they occurred. ITY HEAD documented in this encounter Consult Notes * [...] with AC x6 months, who presented to [facility] for T3-5 laminectomy/ decompression and intradural arachnoid [...] with AC x6 months, who presented to [facility] for T3-5 laminectomy/ decompression and intradural arachnoid [...] to be discussed in detail with outpatient Guest Services Director). Heme f/u with Dr Salmon in about 3 months has been requested. Thank you for allowing us to participate in the care of Mr Delgado and we will continue to follow peripherally. Please call the Hematology service with any additional questions or concerns. This case was discussed with my attending physician Dr Salmon, who agrees with the above mentionedassessment and plan. [phone] Weekdays 8AM-4PM Weeknights 4PM - 8AM, all day on Weekends, all day on holidays and my days off work, please contactthe on-call fellow at [phone] For patients or family members viewing this note through [employer] programs. This note was written as a [...] be involved in your care. Claudia Mujkanovic, STRATEGIC PLANNING CONSULTANT Department of Hematology 10/09/2024 , 3:53 PM Cosigned by Jason Salmon MD at 10/15/2024 6:32 PM QUALITY HEAD ITY HEAD ITY HEAD * Mary Lou Jack MD - 10/09/2024 [...] months. In 07/2021 he also saw OSH plant technical specialist Dr. Saez for pre-op eval, and was [...] disease) stage 3, GFR 30-59 ml/min ([facility]), Obesity, and Renal cyst. PSHX: has a past surgical history that includes Tumor removal (2020); Spinal cord stimulator implant (2023); Lumbar spine surgery (2020); and Spine surgery (2010). Family Hx: Adopted so unsure of family history. Possible IA in father Social Hx: reports that he [...] 5PM or on weekends, please page the digital media manager consulting practice director with any questions or concerns. Mary Lou Mayfield Ma, MD 11:30 AM 10/09/24 Cosigned by Sofia Ochoa MD at 10/10/2024 2:53 PM QUALITY HEAD ITY HEAD ITY HEAD ITY HEAD ITY HEAD Associated attestation - Sofia Ochoa MD - 10/10/2024 2:53 PM QUALITY HEAD I have seen and examined the patient [...] The phone number for our clinic is [phone] - Urology will sign off. Thank you for allowing us to participate in this patient's care. To reach the urology consult resident from 6:00 to 18:00 (Wednesday-Wednesday), please call [phone].If you want to contact Urology consults after hours (18:00 to 6:00) and over the weekend, please call the inverted block operator Neha Templeton NP ITY HEAD documented in this encounter Nursing Notes * Jaimie Curiel RN - 10/11/2024 6:51 PM CST [id number] Alert and appropriate. Medicated for pain. Zheng to gravity. Tolerating diet. Heparin gttper nomogram. IVF as ordered. Up in chair. Total lift back to bed. See labs, flowsheets. ITY HEAD * Kristin Land RN - 10/05/2024 9:37 PM CST Patient transferred to room 97350-16. Neuro status and VSS. Bedside shift report given to MARK Fox. Patient belongings transferred w/ pt, and are at bedside. ITY HEAD * Melia Maria RN - 10/02/2024 4:23 [...] not unexpected. Neurosurgery at bedside assessing patient. ITY HEAD ITY HEAD documented in this encounter Miscellaneous Notes * Plan of Care - Marla Larson RN - 10/13/2024 2:12 PM CST Per Medical Chart/Rounds/IDR: Heparin infusion. Zheng replaced ADD: 10/14 Plan/referrals made/in place: [facility] following Transportation: [facility] F/U Appointments: Patient to follow up with spinal surgery Plan for weekend discharge: [facility] following. Liacarlee Brown [phone] consulting practice director for this weekend. [facility] on [facility], trip # [phone]. Discharge packet initiated and placed by patient's paper chart folder. Will follow. ITY HEAD ITY HEAD * Plan of Care - Marla Larson [...] and ensure patient has continuum of care. Director Of Sleep will continue to follow and assist with discharge planning as needed ITY HEAD * Plan of Care - Marla Larson [...] and ensure patient has continuum of care. Director Of Sleep will continue to follow and assist with discharge planning as needed ITY HEAD ITY HEAD * Plan of Care - Joyce Guillen [...] VS, I/O, pain, and maintain safe environment. Curing Pickling Packer Patient Centered Goal for Treatment: Get better and go home Summary: Pt resting comfortably in bed, set up for breakfast. ITY HEAD * Plan of [place] - Mauricio Esparza RN - 10/12/2024 6:52 AM QUALITY HEAD Goals: Clinical Goals for the Shift: VSS, monitor labs, management of pain, remain free from falls, promote rest and comfort Nursing Home Patient Centered Goal for Treatment: Get better [...] impaired skin integrity will decrease Outcome: Progressing ITY HEAD * Plan of Care - Neville Larson [...] free from falls, promote rest and comfort Nursing Home Patient Centered Goal for Treatment: Get better and go home Summary: VSS, A&O x4, controlled pain with pain medications. Pt resting between care. Fall precautions in place. Call light in reach. ITY HEAD * Plan of Care - Neha Velasquez RN - 10/11/2024 12:46 PM QUALITY HEAD Goals: Clinical Goals for the Shift: VSS, monitor labs, management of pain, remain free from falls, promote rest and comfort Nursing Home Patient Centered Goal for Treatment: Get better and go home Summary: Problem: Lack of Knowledge Goal: Ability to develop a pain control plan will improve Outcome: Progressing Flowsheets (Taken 10/11/2024 0629) Ability to develop a pain control plan [...] of mobility impairment will improve Outcome: Progressing ITY HEAD * Plan of Care - Marla Larson RN - 10/11/2024 9:58 AM CST Per Rounds: Possible restart heparin infusion ADD: 10/12 vs 10/13 Plan & referrals made/in place: [facility] following. Patient's Identified Problem/Goal Problem: Ensure acute medical needs are met and patient has a safe discharge plan. Goal: Secure a discharge plan that patient/family are agreeable with and ensure patient has continuum of care. Director Of Sleep will continue to follow and assist with discharge planning as needed ITY HEAD * Plan of Care - Neville Larson [...] precautions in place. Call light in reach. ITY HEAD * Consults, Subsequent - Claudia Ryan NP - 10/10/2024 3:48 PM QUALITY HEAD Images from the original note were not [...] with AC x6 months, who presented to [facility] for T3-5 laminectomy/ decompression and intradural arachnoid [...] consider: Enoxaparin 30mg BID---> 10/16/2024 Heparin gtt [id number]---> if no bleeding concerns, switch to Apixaban 5mg BID Vs. Heparin gtt with PTT goal per primary team and no bolus--->10/16/2024 Heparin gtt with standard PTT goal 60-90 [id number]---> Apixaban 5mg BID if no concern for [...] to call with questions or concerns. Pg [phone] Weekdays 8AM-4PM. Weeknights 4PM - 8AM, all day on Weekends, all day on holidays and my days off work, please contactthe on-call fellow at [phone] For patients or family members viewing this note through [employer] programs. This note was written as a [...] Sherry Calles MD at 10/13/2024 2:48 PM QUALITY HEAD ITY HEAD ITY HEAD * Significant Event - Anibal Camacho MD - 10/10/2024 9:45 AM QUALITY HEAD Interventional Radiology Consult Resolution Note Reason for [...] discussed with Dr. Huntley, the IR Attending. ITY HEAD * Plan of Care - Marla Larson RN - 10/10/2024 8:55 AM CST Per Rounds: patient with DVT. Therapeutic AC vs IVC filter. ADD: 10/12 Plan & referrals made/in place: [facility] following. Notified liaison Lachelle of updated ADD Patient's Identified Problem/Goal Problem: Ensure acute medical needs are met and patient has a safe discharge plan. Goal: Secure a discharge plan that patient/family are agreeable with and ensure patient has continuum of care. Director Of Sleep will continue to follow and assist with discharge planning as needed ITY HEAD * Plan of Care - Neville Larson [...] precautions in place. Call light in reach. ITY HEAD * Plan of Care - Geovanni Bell [...] of mobility impairment will improve Outcome: Progressing ITY HEAD * Plan of Care - Marla Larson [...] and ensure patient has continuum of care. Director Of Sleep will continue to follow and assist with discharge planning as needed ITY HEAD * Plan of Care - Sia Mathias [...] Stability: Monitor vital signs, rhythm, and trends ITY HEAD * Plan of Care - Geovanni Bell [...] Understanding discharge needs will improve Outcome: Progressing ITY HEAD * Plan of Care - Skinny Dubose [...] oxycodone, carleen lift, will continue to monitor. ITY HEAD * Plan of Care - Marla Larson RN - 10/06/2024 10:57 AM QUALITY HEAD Director Of Sleep noted patient has been recommended for Inpatient Rehab by PT/OT. Director Of Sleep met withthe patient at bedside to discuss recommendations by therapy and to work on a potential discharge disposition plan. Director Of Sleep provided education to patien on the rehabilitation process. Patient reported being interested in placement for rehabilitation. web content & social media manager provided a list of Inpatient Rehab Facility choices to patient. [facility] sent out additional referrals via [facility]. CM awaiting acceptance from an Inpatient Rehab Facility and will continue to work on discharge planning with patient and family. 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 Object from Floor from a Standing [...] 168 Hours) PT Treatment Row Name 10/05/24 0923 PT Last Visit Session Type Treatment -DT [...] Progress Notes signed by Magali Ocampo, PT ITY HEAD * ECIN Note - Marla Larson RN - 10/06/2024 10:56 AM CST Patient Information: Meds and Admin Active Only All Meds/Most Recent Administrations acetaminophen (TYLENOL) tablet 1,000 mg [[id number]] Ordering Provider: James Robles MD Status: Completed (Past End Date/Time) Ordered On: 10/02/24547 Starts/Ends: 10/02/24629 - 10/02/24614 Ordered Dose (Remaining/Total): 1,000 mg (0/1) Route: oral Frequency: Once Ordered Rate/Order Duration: -- / -- Admin Instructions: Administer 60 minutes prior to surgery. Timestamps Action Dose Route Other Information 10/02/24614 Given 1,000 mg oral Performed by: Juanis Lozano RN Scanned Package: 4129-4423-63, 8811-9865-77 gabapentin (NEURONTIN) capsule 300 mg [[id number]] Ordering Provider: James Robles MD Status: Completed (Past End Date/Time) Ordered On: 10/02/24547 Starts/Ends: 10/02/24629 - 10/02/24 0615 Ordered Dose (Remaining/Total): 300 mg (0/1) Route: oral Frequency: Once Ordered Rate/Order Duration: -- / -- Admin Instructions: Administer 60 minutes prior to surgery. Timestamps Action Dose Route Other Information 10/02/24614 Given 300 mg oral Performed by: Juanis Lozano RN Scanned Package: 58258-211-84 ceFAZolin (ANCEF) 2,000 mg/20 mL in sterile water (premix) 2,000 mg [[id number]] Ordering Provider: James Robles MD Status: Completed [...] in sodium chloride 0.9% (premix) 1,500 mg [[id number]] Ordering Provider: James Robles MD Status: Completed [...] Morales MD oxyCODONE (ROXICODONE) tablet 5 mg [[id number]] Ordering Provider: Vance Morales MD Status: Completed (Past End Date/Time) Ordered On: 10/02/241549 Starts/Ends: 10/02/241549 - 10/02/24 1642 Ordered Dose (Remaining/Total): 5 mg (0/1) Route: oral Frequency: Once as needed Ordered Rate/Order Duration: -- / -- Admin Instructions: When able to tolerate PO. Timestamps Action Dose Route Other Information 10/02/24 1642 Given 5 mg oral Performed by: Melia Maria RN Scanned Package: 78981-105-97 baclofen (LIORESAL) tablet 10 mg [[id number]] Ordering Provider: Wild Perez MD Status: Dispensed Ordered On: 10/02/24 154 Start: 10/02/24 1730 Ordered Dose (Remaining/Total): 10 mg (--/--) Route: oral Frequency: 2 times daily Ordered Rate/Order Duration: -- / -- Timestamps Action Dose Route Other Information 10/06/24 0851 Given 10 mg oral Performed by: Skinny Dubose RN Scanned Package: [address]-[address] (CYMBALTA) extended release capsule 30 mg [[id number]] Ordering Provider: Wild Perez MD Status: Dispensed [...] Performed by: Skinny Dubose RN Scanned Package: 61055-100-50 finasteride (PROSCAR) tablet 5 mg [[id number]] Ordering Provider: Tamanna Porras NP Status: Dispensed Ordered On: 10/02/241932 Start: 10/03/24 0900 Ordered Dose (Remaining/Total): 5 mg (--/--) Route: oral Frequency: Every morning Ordered Rate/Order Duration: -- / -- Admin Instructions: Do not crush, break, or open. Timestamps Action Dose Route Other Information 10/06/24 0851 Given 5 mg oral Performed by: Skinny Dubose RN Scanned Package: 23043-394-22 sodium chloride 0.9% flush 0.5-20 mL [[id number]] Ordering Provider: Wild Perez MD Status: Verified Ordered On: 10/02/241932 Start: 10/02/241932 Ordered Dose (Remaining/Total): 0.5-20 mL (--/--) Route: intra-catheter Frequency: As needed Ordered Rate/Order Duration: -- / -- Admin Instructions: Flush volume based on line type and size. Flush before and after each use. (No admins scheduled or recorded for this medication) Carrier Fluids for Secondary Infusion - 0.9% Sodium Chloride [[id number]] Ordering Provider: Wild Perez MD Status: Verified [...] this medication) oxyCODONE (ROXICODONE) tablet 5 mg [[id number]] Ordering Provider: Wild Perez MD Status: Verified [...] this medication) ondansetron (ZOFRAN) injection 4 mg [[id number]] Ordering Provider: Wild Perez MD Status: Verified Ordered On: 10/02/241932 Start: 10/02/241932 Ordered Dose (Remaining/Total): 4 mg (--/--) Route: intravenous Frequency: Every 6 hours PRN Ordered Rate/Order Duration: -- / 2 Minutes Admin Instructions: Proceed to trimethobenzamide if no relief within 30 minutes. (No admins scheduled or recorded for this medication) famotidine (PEPCID) tablet 20 mg [[id number]] Ordering Provider: Wild Perez MD Status: Dispensed Ordered On: 10/02/241932 Start: 10/02/242099 Ordered Dose (Remaining/Total): 20 mg (--/--) Route: oral Frequency: Every 12 hours scheduled Ordered Rate/Order Duration: -- / -- Admin Instructions: If able to swallow tablets. Timestamps Action Dose Route Other Information 10/06/24850 Given 20 mg oral Performed by: Skinny Dubose RN Scanned Package: 24690-859-77 docusate sodium (COLACE) capsule 100 mg [[id number]] Ordering Provider: Wild Perez MD Status: Dispensed Ordered On: 10/02/241932 Start: 10/02/242099 Ordered Dose (Remaining/Total): 100 mg (--/--) Route: oral Frequency: 2 times daily Ordered Rate/Order Duration: -- / -- Admin Instructions: If able to swallow capsules. Hold for diarrhea. Timestamps Action Dose Route Other Information 10/06/24850 Given 100 mg oral Performed by: Skinny Dubose RN Scanned Package: 23576-748-25 senna (SENOKOT) tablet 1 tablet [[id number]] Ordering Provider: Wild Perez MD Status: Dispensed Ordered On: 10/02/241932 Start: 10/02/242099 Ordered Dose (Remaining/Total): 1 tablet (--/--) Route: oral Frequency: 2 times daily Ordered Rate/Order Duration: -- / -- Admin Instructions: If able to swallow tablets. Hold for diarrhea. Timestamps Action Dose Route Other Information 10/06/24850 Given 1 tablet oral Performed by: Skinny Dubose RN Scanned Package: 3543-9658-14 polyethylene glycol (MIRALAX) packet 17 g [[id number]] Ordering Provider: Wild Perez MD Status: Dispensed Ordered On: 10/02/241932 Start: 10/02/242014 Ordered Dose (Remaining/Total): 17 g (--/--) Route: oral Frequency: Daily Ordered Rate/Order Duration: -- / -- Admin Instructions: Hold for diarrhea. Timestamps Action Dose Route Other Information 10/06/24 0851 Given 17 g oral Performed by: Skinny Dubose RN Scanned Package: 19875-644-77 bisacodyL (DULCOLAX) suppository 10 mg [[id number]] Ordering Provider: Wild Perez MD Status: Dispensed Ordered On: 10/02/241932 Start: 10/02/241932 Ordered Dose (Remaining/Total): 10 mg (--/--) Route: rectal Frequency: Daily PRN Ordered Rate/Order Duration: -- / -- Admin Instructions: If not bowel movement in 48 hours. Timestamps Action Dose Route Other Information 10/05/242336 Given 10 mg rectal Performed by: Kay Aaron RN Scanned Package: 4818-4203-99 enoxaparin (LOVENOX) syringe 30 mg [[id number]] Ordering Provider: Wild Perez MD Status: Dispensed Ordered On: 10/02/241932 Start: 10/03/242099 Ordered Dose (Remaining/Total): 30 mg (--/--) Route: subcutaneous Frequency: Daily (for enoxaparin) Ordered Rate/Order Duration: -- / -- Timestamps Action Dose Route / Site Other Information 10/05/241957 Given 30 mg subcutaneous Left Lower Abdomen Performed by: Kristin Land RN Scanned Package: 55468-444-03 ceFAZolin (ANCEF) 2,000 mg/20 mL in sterile water (premix) 2,000 mg [[id number]] Ordering Provider: Wild Perez MD Status: Completed [...] Performed by: Meliza Koch RN Scanned Package: [address]-5 vancomycin 1500 mg/515 mL in sodium chloride 0.9% (premix) 1,500 mg [[id number]] Ordering Provider: Wild Perez MD Status: Completed [...] Performed by: Melia Maria RN Scanned Package: 0686-7192-97 sodium chloride 0.9% bolus 1,000 mL [[id number]] Ordering Provider: Zora Martínez MD Status: Completed [...] Performed by: Alida Larry RN Scanned Package: 8818-8137-30 magnesium sulfate 2 g/50 mL in water (premix) 2 g [[id number]] Ordering Provider: Laura Sheets NP Status: Completed [...] mL in sterile water (premix) 2,000 mg [[id number]] Ordering Provider: Geraldine Leary NP Status: Dispensed [...] Performed by: Skinny Dubose RN Scanned Package: [address]-7 azithromycin (ZITHROMAX) tablet 500 mg [[id number]] Ordering Provider: Geraldine Leary NP Status: Completed (Past End Date/Time) Ordered On: 10/04/24 0850 Starts/Ends: 10/04/24 0930 - 10/06/24 0851 Ordered Dose (Remaining/Total): 500 mg (0/3) Route: oral Frequency: Daily Ordered Rate/Order Duration: -- / -- Timestamps Action Dose Route Other Information 10/06/24 0851 Given 500 mg oral Performed by: Skinny Dubose RN Scanned Package: [address]-1, [address]-4 acetaminophen (TYLENOL) tablet 1,000 mg [[id number]] Ordering Provider: Geraldine Leary NP Status: Verified Ordered On: 10/05/24 1301 Start: 10/05/24 1315 Ordered Dose (Remaining/Total): 1,000 mg (--/--) Route: oral Frequency: Every 6 hours PRN Ordered Rate/Order Duration: -- / -- (No admins scheduled or recorded for this medication) dexAMETHasone (DECADRON) tablet 4 mg [[id number]] Ordering Provider: Cherry Hwang MD Status: Dispensed Ordered On: 10/05/241618 Starts/Ends: 10/05/241799 - 10/06/241758 Ordered Dose (Remaining/Total): 4 mg (1/4) Route: oral Frequency: Every 6 hours scheduled Ordered Rate/Order Duration: -- / -- Timestamps Action Dose Route Other Information 10/06/24 0512 Given 4 mg oral Performed by: Kay Aaron RN Scanned Package: 17365-113-70 dexAMETHasone (DECADRON) tablet 4 mg [[id number]] Ordering Provider: Cherry Hwang MD Status: Dispensed Ordered On: 10/05/241618 Starts/Ends: 10/06/241799 - 10/07/242158 Ordered Dose (Remaining/Total): 4 mg (3/3) Route: oral Frequency: Every 8 hours scheduled Ordered Rate/Order Duration: -- / -- (No admins scheduled or recorded for this medication) dexAMETHasone (DECADRON) tablet 2 mg [[id number]] Ordering Provider: Cherry Hwang MD Status: Dispensed Ordered On: 10/05/241618 Starts/Ends: 10/07/242199 - 10/08/242158 Ordered Dose (Remaining/Total): 2 mg (3/3) Route: oral Frequency: Every 8 hours scheduled Ordered Rate/Order Duration: -- / -- (No admins scheduled or recorded for this medication) dexAMETHasone (DECADRON) tablet 1 mg [[id number]] Ordering Provider: Cherry Hwang MD Status: Verified Ordered On: 10/05/241618 Starts/Ends: 10/08/242199 - 10/09/242158 Ordered Dose (Remaining/Total): 1 mg (3/3) Route: oral Frequency: Every 8 hours scheduled Ordered Rate/Order Duration: -- / -- (No admins scheduled or recorded for this medication) dexAMETHasone (DECADRON) tablet 1 mg [[id number]] Ordering Provider: Cherry Hwang MD Status: Verified Ordered On: 10/05/241618 Starts/Ends: 10/09/24 2200 - 10/10/242058 Ordered Dose (Remaining/Total): 1 mg (2/2) Route: oral Frequency: Every 12 hours scheduled Ordered Rate/Order Duration: -- / -- (No admins scheduled or recorded for this medication) dexAMETHasone (DECADRON) tablet 1 mg [[id number]] Ordering Provider: Cherry Hwang MD Status: Verified Ordered On: 10/05/241618 Starts/Ends: 10/11/24 09 - 10/12/24 0859 Ordered Dose (Remaining/Total): 1 mg (11/22) Route: oral Frequency: Daily Ordered Rate/Order Duration: -- / -- (No admins scheduled or recorded for this medication) ITY HEAD * ECIN Note - Marla Larson RN [...] 10/06/24 0700 - 10/07/24 0659 Total Total 2791-1365 1259-2616 5115-8838 Total 6212-7484 8767-5039 0090-0608 Total Intake (ml) 4486.5 1142.6 20 292 029 4207 120 -- -- 120 Output (ml) 3720 1935 166 566 3473 2500 -- -- -- -- Net (ml) [...] On 10/03 1430 On 10/03 1200 On ITY HEAD * Plan of Care - Kay Aaron RN - 10/06/2024 3:29 AM QUALITY HEAD Goals: Clinical Goals for the Shift: VSS, [...] Understanding discharge needs will improve Outcome: Progressing ITY HEAD * Provider Query - Tamanna Porras NP [...] GÓMEZ. Lactic Acidosis. [Updated 2018Oct 16]. In: [employer] [Internet]. [facility]): [facility]; 2019-. Available from: https://www.ncbi.nlm.nih.gov/books/QPI589012/ https://www.[employer].Vuze/contents/pvuhvi-ax-ijauyk-acidosis https://www.[employer]/professional/jeheiwcaf-ivx-vkywktdpw-disorders/acid -jjsk-fupeohdfom-eff-disorders/metabolic-acidosis https://www.[employer]/professional/jpmnskgmx-ztg-ongzerglw-disorders/acid -nhnh-mpdrrdyfbp-rwh-disorders/respiratory-acidosis https://www.[employer]/professional/utetghyxp-lvz-bkxmhodjl-disorders/acid -ekxj-pkkoerotei-qwr-disorders/lactic-acidosis Guide to Clinical Validation, Documentation and Coding, 2019 Edition, [employer] As of August 22, 2022, [facility] Final Rule updates, if acute respiratory acidosis [...] medical record. Respectfully Kannan LA RN CCDS [email or web address] [phone] ITY HEAD * Plan of Care - Eric Valdez [...] Understanding discharge needs will improve Outcome: Ongoing ITY HEAD * Plan of Davy - Leonel Blackwell [...] Understanding discharge needs will improve Outcome: Progressing ITY HEAD * Plan of Care - Eric Valdez [...] Understanding discharge needs will improve Outcome: Ongoing ITY HEAD * Provider Query - Tamanna Porras NP [...] legs and feet bilaterally and arrives to [facility] for posterior lumbar-thoracic spinal fusion with instrumentation [...] Penicillin Streptomycin (high-level) Tetracycline Trimeth/Sulfa Vancomycin References [facility] Antibiogram 2021 [facility] Antibiogram 2021 [facility] Antibiogram 2021 From the ICD-10-CM Coding Guidelines, [...] medical record. Respectfully Kannan LA RN CCDS [email or web address] [phone] ITY HEAD * Provider Query - Tamanna Porras NP [...] legs and feet bilaterally and arrives to [facility] for posterior lumbar-thoracic spinal fusion with instrumentation [...] 2007 Page: 143 Effective with discharges: August [facility]: Cancer Fatigue From the ICD-10-CM Coding [...] medical record. Respectfully Kannan LA RN CCDS [email or web address] [phone] ITY HEAD * Initial Assessments - Saturnino Kennedy RN - 10/04/2024 9:35 AM QUALITY HEAD CM Initial Assessment Interview Note Information Obtained From: Patient Admission Source: CPAP CAM SC Impression: Patient admitted to [facility] [facility] post operative for T3-5 laminectomy and decompression, arachnoid cyst wall fenestration protocol. Plan Includes: web content & social media manager will monitor for post acute discharge needs such as therapy, nursing, medical equipment or agency referrals as indicated by the care team. Primary Source of Transportation: Does the patient need discharge transport arranged?: No If private car is appropriate at discharge, Reginald Delgado [phone] will provide transport at discharge from hospital. Health Insurance Coverage: Medicare A & B, BCBS Federal Prescription Coverage: Yes Pharmacy: [id number] [place], [place] - [address] AT [place] [address]) & [address] [facility] [id number] Primary Care Provider: Sj Benson MD Prior to Admission: Functional Status: Minimal assist with ADLs Primary Caregiver: Spouse (Reginald Thus [phone]) Support System: Spouse/Significant Other, Children Home Care Services: No Outpatient Services: No Durable Medical Equipment: Walker (wheeled) Living Arrangements: Spouse/significant other (Reginald Thus [phone]) Type of Residence: Private residence Steps in [...] car is appropriate at discharge, Reginald Thus [phone] will provide transport at discharge from hospital. [...] Collaboration with Patient, Provider, Direct Care Nurse, Window Glass Installer, and other members of theHealth Care Team to assure needed interventions completed. 2. Return patient to optimal level of self-care post discharge. 3. Director Of Sleep will follow for Discharge Planning - interventions as needed 4. Anticipated level of care at discharge 5. Planned Discharge Disposition Saturnino Kennedy RN ITY HEAD * Plan of Care - Eric Valdez [...] and optimal renal function maintained Outcome: Ongoing ITY HEAD * Perioperative Nursing Note - Alida Larry RN - 10/03/2024 11:[address] Martínez with neuro on-call updated with [...] Pt updated on patient and boarding status ITY HEAD ITY HEAD ITY HEAD * Perioperative Nursing Note - Alida Larry RN - 10/03/2024 10:[address] Wayne at bedside to evaluate arterial line ITY HEAD * Perioperative Nursing Note - Alida Larry RN - 10/03/2024 9:35 AM QUALITY HEAD Neuro pager team contacted regarding continued MAP issues. Orders received. ITY HEAD * Perioperative Nursing Note - Alida Larry RN - 10/03/2024 8:42 AM QUALITY HEAD Patient repositioned. Armboard placed to attempt to maintain arterial BP. Line quite positional andvaries with non-invasive pressure. ITY HEAD * Perioperative Nursing Note - Meliza Kcoh RN - 10/03/2024 5:26 AM CST Mr. Delgado slept soundly through the night, but was A&O x 4 on waking. 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 His plantar flexion improved throughout the night. From 2200 to 0600, his plantar flexion LLE went from 3+/5+ to 5+/5+, and his RLE went from 1+/5+ to 2-3+/5+. His dorsiflexion LLE went from 3+/5+ to 5+/5+, and his RLE remained weak at 1+/5+. Phenylephrine was as high as 0.9mcg/kg/min to sustain MAP goal of >110. ITY HEAD * Brief Op Note - Wild Perez MD - 10/02/2024 3:26 PM CST Operative Progress Note Surgical Team: Surgeons and Role: * James Robles MD - Primary * Wild Perez MD - Resident - Assisting * Meghan Major DO - Fellow Anesthesiologist: Marimar Carr MD PhD Radio Station Operator: Vance Morales MD Adjunct Faculty: Timo Bonilla RN Adjunct Faculty Relief: Gabriela Sullivan RN Scrub Relief: Rae Starr RN Scrub: Joyce Zhou RN Supervisor Sawmill: Dejan Velásquez [facility] Scrub: May Carroll RN DATE OF [...] James Robles MD at 10/03/2024 8:13 AM QUALITY HEAD ITY HEAD ITY HEAD * Op Note - James Robles MD - 10/02/2024 9:18 AM CST Surgeon: James Robles MD Pattern Setter: Satish Major DO Preoperative diagnosis: Dorsal arachnoid [...] all critical components of the procedure as first beater and participated specifically with the revision laminectomy and intradural arachnoid web/cystic incision and lysis of adhesions. Please note that her expert assistance was necessary given the lack of availability of a qualified resident. ITY HEAD documented in this encounter Plan of Treatment Pending Results Name Type Priority Associated Diagnoses Date /Time Hepatic function panel Lab Routine 8:12 PM QUALITY HEAD Scheduled Orders Name Type Priority Associated Diagnoses Order Schedule Surgical pathology Pathology and Cytology Routine Thoracic myelopathy Release Upon Ordering for 1 Occurrences starting 10/02/2024 Hepatic function panel Lab Routine Once for 1 Occurrences starting 10/13/2024 until 10/13/2024 documented as of this encounter Procedures Procedure Name Priority Date/Time Associated Diagnosis Comments EGFR Routine 10/13/2024 8:12 PM QUALITY HEAD PROTIME-INR STAT 10/13/2024 8:12 PM QUALITY HEAD CBC WITHOUT DIFFERENTIAL Routine 10/13/2024 8:12 PM QUALITY HEAD HEPATIC FUNCTION PANEL Routine 8:12 PM QUALITY HEAD BASIC METABOLIC PANEL Routine 10/13/2024 8:12 PM QUALITY HEAD PEP THERAPY Routine 10/13/2024 12:00 PM QUALITY HEAD US VEIN DUPLEX LOWER EXTREMITY BILATERAL COMPLETE IP Routine 10/13/2024 9:43 AM QUALITY HEAD APTT STAT 10/13/2024 6:24 AM QUALITY HEAD PEP THERAPY Routine 10/13/2024 6:01 AM QUALITY HEAD EGFR Routine 10/12/2024 9:40 PM QUALITY HEAD APTT Routine 10/12/2024 9:40 PM QUALITY HEAD CBC WITHOUT DIFFERENTIAL Routine 10/12/2024 9:40 PM QUALITY HEAD BASIC METABOLIC PANEL Routine 10/12/2024 9:40 PM QUALITY HEAD PEP THERAPY Routine 10/12/2024 6:00 PM QUALITY HEAD PEP THERAPY Routine 10/12/2024 12:00 PM QUALITY HEAD APTT STAT 10/12/2024 6:21 AM QUALITY HEAD PEP THERAPY Routine 10/12/2024 6:01 AM QUALITY HEAD APTT STAT 10/12/2024 12:54 AM QUALITY HEAD EGFR Routine 10/11/2024 9:52 PM QUALITY HEAD CBC WITHOUT DIFFERENTIAL Routine 10/11/2024 9:52 PM QUALITY HEAD BASIC METABOLIC PANEL Routine 10/11/2024 9:52 PM QUALITY HEAD PEP THERAPY Routine 10/11/2024 6:00 PM QUALITY HEAD APTT STAT 10/11/2024 5:30 PM QUALITY HEAD PEP THERAPY Routine 10/11/2024 12:00 PM QUALITY HEAD PEP THERAPY Routine 10/11/2024 6:01 AM QUALITY HEAD PEP THERAPY Routine 10/11/2024 12:00 AM QUALITY HEAD EGFR Routine 10/10/2024 8:04 PM QUALITY HEAD APTT STAT 10/10/2024 8:04 PM QUALITY HEAD APTT STAT 10/10/2024 8:04 PM QUALITY HEAD PROTIME-INR STAT 10/10/2024 8:04 PM QUALITY HEAD CBC WITHOUT DIFFERENTIAL Routine 10/10/2024 8:04 PM QUALITY HEAD BASIC METABOLIC PANEL Routine 10/10/2024 8:04 PM QUALITY HEAD PEP THERAPY Routine 10/10/2024 12:00 PM QUALITY HEAD CBC WITHOUT DIFFERENTIAL STAT 10/10/2024 11:51 AM QUALITY HEAD APTT STAT 10/10/2024 11:36 AM QUALITY HEAD PROTIME-INR STAT 10/10/2024 11:36 AM QUALITY HEAD PEP THERAPY Routine 10/10/2024 6:01 AM QUALITY HEAD EGFR Routine 10/10/2024 3:19 AM QUALITY HEAD CBC WITHOUT DIFFERENTIAL Routine 10/10/2024 3:19 AM QUALITY HEAD BASIC METABOLIC PANEL Routine 10/10/2024 3:19 AM QUALITY HEAD PEP THERAPY Routine 10/10/2024 12:00 AM QUALITY HEAD POCT GLUCOSE DEVICE Routine 10/09/2024 8 :41 PM QUALITY HEAD PEP THERAPY Routine 10/09/2024 6:00 PM QUALITY HEAD US VEIN DUPLEX LOWER EXTREMITY BILATERAL COMPLETE ED Urgent/IP Urgent 10/09/2024 10:08 AM QUALITY HEAD XR CHEST 1 VIEW IP Routine 10/09/2024 7:55 AM QUALITY HEAD PEP THERAPY Routine 10/09/2024 6:01 AM QUALITY HEAD PEP THERAPY Routine 10/09/2024 12:00 AM QUALITY HEAD EGFR Timed 10/08/2024 10:15 PM QUALITY HEAD CBC WITHOUT DIFFERENTIAL Routine 10/08/2024 10:15 PM QUALITY HEAD PHOSPHORUS Timed 10/08/2024 10:15 PM QUALITY HEAD MAGNESIUM Timed 10/08/2024 10:15 PM QUALITY HEAD COMPREHENSIVE METABOLIC PANEL Timed 10/08/2024 10:15 PM QUALITY HEAD PEP THERAPY Routine 10/08/2024 6:00 PM QUALITY HEAD PEP THERAPY Routine 10/08/2024 12:00 PM QUALITY HEAD TROPONIN I HIGH-SENSITIVITY STAT 10/08/2024 11:36 AM QUALITY HEAD LACTATE Timed 10/08/2024 8:38 AM QUALITY HEAD PEP THERAPY Routine 10/08/2024 6:00 AM QUALITY HEAD EGFR Routine 10/07/2024 10:19 PM QUALITY HEAD CBC WITHOUT DIFFERENTIAL Routine 10/07/2024 10:19 PM QUALITY HEAD BASIC METABOLIC PANEL Routine 10/07/2024 10:19 PM QUALITY HEAD LACTATE, WHOLE BLOOD Timed 10/07/2024 9:09 AM QUALITY HEAD URINALYSIS AND REFLEX TO MICROSCOPIC AND CULTURE Routine 10/07/2024 5:37 AM QUALITY HEAD BLOOD CULTURE STAT 10/07/2024 5:37 AM QUALITY HEAD BLOOD CULTURE STAT 10/07/2024 5:37 AM QUALITY HEAD URINALYSIS, MICROSCOPIC ONLY Routine 10/07/2024 5:37 AM QUALITY HEAD XR CHEST 1 VIEW IP Routine 10/07/2024 5:18 AM QUALITY HEAD PEP THERAPY Routine 10/07/2024 12:00 AM QUALITY HEAD LACTATE, WHOLE BLOOD Routine 10/06/2024 9:30 PM QUALITY HEAD EGFR Routine 10/06/2024 9:16 PM QUALITY HEAD CBC WITHOUT DIFFERENTIAL Routine 10/06/2024 9:16 PM QUALITY HEAD BASIC METABOLIC PANEL Routine 10/06/2024 9:16 PM QUALITY HEAD PEP THERAPY Routine 10/06/2024 6:00 PM QUALITY HEAD PEP THERAPY Routine 10/06/2024 12:00 PM QUALITY HEAD PEP THERAPY Routine 10/06/2024 6:01 AM QUALITY HEAD EGFR Routine 10/05/2024 10:43 PM QUALITY HEAD LACTATE, WHOLE BLOOD Routine 10/05/2024 10:43 PM QUALITY HEAD CBC WITHOUT DIFFERENTIAL Routine 10/05/2024 10:43 PM QUALITY HEAD BASIC METABOLIC PANEL Routine 10/05/2024 10:43 PM QUALITY HEAD PEP THERAPY Routine 10/05/2024 6:12 PM QUALITY HEAD PEP THERAPY Routine 10/05/2024 6:12 PM QUALITY HEAD TROPONIN I HIGH-SENSITIVITY Routine 10/04/2024 8:49 PM QUALITY HEAD CALCIUM,IONIZED, WHOLE BLOOD Routine 10/04/2024 8:49 PM QUALITY HEAD EGFR Routine 10/04/2024 8:49 PM QUALITY HEAD DIFFERENTIAL AUTO Routine 10/04/2024 8:4 9 PM QUALITY HEAD CBC WITH AUTO DIFFERENTIAL Routine 10/04/2024 8:49 PM QUALITY HEAD LACTATE, WHOLE BLOOD Routine 10/04/2024 8:49 PM QUALITY HEAD BASIC METABOLIC PANEL Routine 10/04/2024 8:49 PM QUALITY HEAD URINALYSIS AND REFLEX TO MICROSCOPIC AND CULTURE STAT 10/04/2024 1:30 PM QUALITY HEAD URINALYSIS, MICROSCOPIC ONLY STAT 10/04/2024 1:30 PM QUALITY HEAD LACTATE, WHOLE BLOOD STAT 10/04/2024 12:12 PM QUALITY HEAD TROPONIN I HIGH-SENSITIVITY 2-HOUR Timed 10/04/2024 12:06 PM QUALITY HEAD INFLUENZA A/B, RSV, AND COVID-19 PCR Routine 10/04/2024 9:06 AM QUALITY HEAD TROPONIN I HIGH-SENSITIVITY SERIES (BASELINE, 2HR, 4HR, 6HR) Routine 10/04/2024 9:06 AM QUALITY HEAD LACTATE STAT 10/04/2024 9:06 AM QUALITY HEAD CRITICAL RESULT CALLBACK CHEMISTRY STAT 10/04/2024 9:06 AM QUALITY HEAD EGFR Routine 10/03/2024 10:36 PM QUALITY HEAD BASIC METABOLIC PANEL Routine 10/03/2024 10:36 PM QUALITY HEAD DIFFERENTIAL AUTO Routine 10/03/2024 8:3 0 PM QUALITY HEAD CBC WITH AUTO DIFFERENTIAL Routine 10/03/2024 8:30 PM QUALITY HEAD EGFR STAT 10/03/2024 8:25 PM QUALITY HEAD BASIC METABOLIC PANEL STAT 10/03/2024 8:25 PM QUALITY HEAD ECG 12-LEAD Routine 10/03/2024 2:19 PM QUALITY HEAD POCT GLUCOSE DEVICE Routine 10/03/2024 2 :07 PM QUALITY HEAD EGFR Routine 10/03/2024 4:58 AM QUALITY HEAD DIFFERENTIAL AUTO Routine 10/03/2024 4:5 8 AM QUALITY HEAD CBC WITH AUTO DIFFERENTIAL Routine 10/03/2024 4:58 AM QUALITY HEAD BASIC METABOLIC PANEL Routine 10/03/2024 4:58 AM QUALITY HEAD XR CHEST 1 VIEW IP Routine 10/02/2024 9:08 PM QUALITY HEAD EGFR STAT 10/02/2024 4:01 PM QUALITY HEAD DIFFERENTIAL AUTO STAT 10/02/2024 4:0 1 PM QUALITY HEAD CBC WITH AUTO DIFFERENTIAL STAT 10/02/2024 4:01 PM QUALITY HEAD APTT STAT 10/02/2024 4:01 PM QUALITY HEAD PROTIME-INR STAT 10/02/2024 4:01 PM QUALITY HEAD PHOSPHORUS STAT 10/02/2024 4:01 PM QUALITY HEAD MAGNESIUM STAT 10/02/2024 4:01 PM QUALITY HEAD COMPREHENSIVE METABOLIC PANEL STAT 10/02/2024 4:01 PM QUALITY HEAD POC BLOOD GAS AND CHEMISTRIES, ARTERIAL Routine 10/02/2024 2:30 PM QUALITY HEAD FL FLUOROSCOPY < 1 HOUR IP Routine 10/02/2024 2:00 PM QUALITY HEAD POC BLOOD GAS AND CHEMISTRIES, ARTERIAL Routine 10/02/2024 10:43 AM QUALITY HEAD SPINAL CORD MONITORING 7:29 AM QUALITY HEAD Thoracic myelopathy Case Notes [email or web address] Celine via email add Dr. David HEBERT LAMINECTOMY THORACIC DECOMPRESSION 10/02/2024 7:29 AM QUALITY HEAD Thoracic myelopathy Case Notes [email or web address] Celine via email add Dr. David HEBERT FUSION SPINAL - POSTERIOR LUMBAR/THORACIC WITH INSTRUMENTATION 10/02/2024 7:29 AM QUALITY HEAD Thoracic myelopathy Case Notes [email or web address] Celine via email add Dr. David HEBERT TYPE AND SCREEN STAT 10/02/2024 6:18 AM QUALITY HEAD documented in this encounter Results * (ABNORMAL) Hepatic function panel (10/13/2024 8:12 PM QUALITY HEAD) Bilirubin, total 0.2 0.1 - 1.2 mg/dL Bilirubin, direct <0.2 0.1 - 0.3 mg/dL [facility] Protein, pl 5.8(L) 6.5 - 8.5 g/dL [facility] Albumin 3.4(L) 3.5 - 5.0 g/dL [facility] Alk phos 59 40 - 130 Units/L [facility] ALT 28 7 - 55 Units/L [facility] AST 26 10 - 50 Units/L [facility] Comment:Hemolyzed; result ma y be falsely elevated Blood 10/13/2024 8:12 PM QUALITY HEAD 10/13/2024 8:23 PM QUALITY HEAD us James Robles MD LAB BLOOD ORDERABLES Final Resu lt [facility] Department [place] [address] * eGFR (10/13/2024 8:12 PM QUALITY HEAD) eGFR 60 >=60 mL/min/1. 73 m2 Comment: [...] last reviewed 2021. Blood 10/13/2024 8:12 PM QUALITY HEAD 10/13/2024 8:37 PM QUALITY HEAD James Robles MD LAB BLOOD ORDERABLES Final Resu lt Performing Organization Address [facility] de Phone Number [facility] [place] Department [place] [address] * Protime-INR (10/13/2024 8:12 PM QUALITY HEAD) PT 11.5 9.7 - 13.0 sec INR 1.06 0.90 - 1.20 [facility] Comment: Interpretive data Oral anticoagulant therapeutic ranges: Venous thromboembolism prophylaxis or treatment: 2.0-3.0 CARDIOLOGY Standard range: 2.0-3.0 High-intensity range: 2.5-3.5 Refer to indication-specific guidelines for appropriate target ranges for prosthetic heart valve replacement. Current interpretive data was last revised on 2019. Blood 10/13/2024 8:12 PM QUALITY HEAD 10/13/2024 8:32 PM QUALITY HEAD Narrative [facility] - 10/13/2024 8:38 PM QUALITY HEAD Baseline prior to apixaban initiation. Result [facility] Meghan Carranza NP LAB BLOOD ORDERABLES Fin al Result Performing Organization Address [facility] de Phone Number [facility] [place] Department [place] [address] * (ABNORMAL) CBC without differential (10/13/2024 8:12 PM QUALITY HEAD) WBC 17.1(H) 3.8 - 9.9 K/cumm Hgb 12.1(L) 13.0 - 17.5 g/dL [facility] Hct 37.0(L) 38.9 - 50.3 % [facility] Plt 214 150 - 400 K/cumm [facility] MPV 10.1 9.1 - 12.3 fL [facility] RBC 3.76(L) 4.30 - 5.80 M/cumm [facility] MCV 98.4(H) 81.3 - 96.4 fL [facility] MCH 32.2 27.1 - 33.3 pg [facility] MCHC 32.7 32.3 - 35.7 g/dL [facility] RDW CV 14.6 11.1 - 14.9 % [facility] RDW SD 52.2(H) 35.7 - 48.1 fL [facility] NRBC abs 0.00 0.00 - 0.01 K/cumm [facility] Blood 10/13/2024 8:12 PM QUALITY HEAD 10/13/2024 8:26 PM QUALITY HEAD Maria Isabel Unger NP LAB BLOOD ORDERABLES Final Result [facility] Department [place] [address] * (ABNORMAL) Basic metabolic panel (10/13/2024 8:12 PM QUALITY HEAD) Sodium 140 135 - 145 mmol/L Potassium, pl 4.7 3.3 - 4.9 mmol/L [facility] Comment:Hemolyzed; Potassium value may be falsely elevated by as much as 0.3-0.5 mmol/L. Suggest redraw and reanalysis. Chloride 107 97 - 110 mmol/L [facility] CO2 23 22 - 32 mmol/L [facility] Anion gap 10 2 - 15 mmol/L [facility] BUN 26(H) 6 - 25 mg/dL [facility] Creatinine 1.25 0.80 - 1.30 mg/dL [facility] Glucose 96 70 - 199 mg/dL [facility] Comment: Interpretive Data Fasting glucose >/= [...] mg/dL [facility] Blood 10/13/2024 8:12 PM QUALITY HEAD 10/13/2024 8:23 PM QUALITY HEAD us James Robles MD LAB BLOOD ORDERABLES Final Resu lt [facility] Department [place] [address] * US Vein Duplex Lower Extremity Bilateral Complete (10/13/2024 9:43 AM QUALITY HEAD) Anatomical Region Laterality Modality Vascular Bilateral Ultrasound 10/13/2024 9:05 AM QUALITY HEAD Narrative 10/13/2024 1:52 PM QUALITY HEAD [facility] [employer] [facility] - Department of Vascular Surgery, Vascular Laboratory [address] [place] [id number] Lower Extremity Venous Ultrasound Report Patient Name: LILI DELGADO F : 1950 (74y ) Study Date: 10/13/2024 9:05:32 AM Gender: M Tech: Location: [id number] Ref Provider: MEGHAN CARRANZA Quality: Adequate Order [...] thrombus size per hematology - FINDINGS: Performing Nurses Supervisor: Jessica Aguilar RVT. Right: Duplex scan reveals [...] on the above date to Meghan Carranza STRATEGIC PLANNING CONSULTANT at 9:40am. CONCLUSIONS: 1. There is acute [...] Tyshawn Mullins MD FACS 10/13/2024 1:52:11 PM QUALITY HEAD Procedure Note Tyshawn Mullins MD - 10/13/2024 [facility] - Department of Vascular Surgery,Vascular Laboratory [address] [place] [address] Lower Extremity Venous Ultrasound Report Patient Name: LILI DELGADO F : 1950 (74y ) Study Date: 10/13/2024 9:05:32 AM Gender: M Tech: SAGAR Location: [id number] Ref Provider: MEGHAN CARRANZA Quality: Adequate Order [...] thrombus size per hematology - FINDINGS: Performing Nurses Supervisor: Jessica Aguilar RVT. Right: Duplex scan reveals [...] called on the above date to Meghan Cararnza NP at 9:40am. CONCLUSIONS: 1. There is [...] Tyshawn Mullins MD FACS 10/13/2024 1:52:11 PM QUALITY HEAD us Meghan Carranza NP IMG US PROCEDURES Final Result * (ABNORMAL) aPTT (10/13/2024 6:24 AM QUALITY HEAD) aPTT 55(H) 28 - 38 sec Comment: Interpretive Data Heparin therapeutic range: 66.0 - 100.0 seconds. Range based on correlation with therapeutic heparin activity range of 0.3 - 0.7 Units/mL. Current interpretive data was last revised on 2023. Blood 10/13/2024 6:24 AM QUALITY HEAD 10/13/2024 6:52 AM QUALITY HEAD Narrative [facility] - 10/13/2024 7:17 AM QUALITY HEAD STAT PTT timing: - Draw 6 hours [...] MD LAB BLOOD ORDERABLES Final [facility]u lt [facility] Department [place] [address] * (ABNORMAL) eGFR (10/12/2024 9:40 PM QUALITY HEAD) eGFR 49(L) >=60 mL/min/1. 73 m2 Comment: [...] last reviewed 2021. Blood 10/12/2024 9:40 PM QUALITY HEAD 10/12/2024 11:24 PM QUALITY HEAD James Robles MD LAB BLOOD ORDERABLES Final Resu lt Performing Organization Address [facility] Co de Phone Number [facility] [place] [address] * (ABNORMAL) aPTT (10/12/2024 9:40 PM QUALITY HEAD) aPTT 57(H) 28 - 38 sec Comment: Interpretive Data Heparin therapeutic range: 66.0 - 100.0 seconds. Range based on correlation with therapeutic heparin activity range of 0.3 - 0.7 Units/mL. Current interpretive data was last revised on 2023. Blood 10/12/2024 9:40 PM QUALITY HEAD 10/12/2024 11:26 PM QUALITY HEAD Result [facility] Meghan Carranza STRATEGIC PLANNING CONSULTANT LAB BLOOD ORDERABLES Fin al Result Performing Organization Address [facility] Co de Phone Number [facility] [place] Department [place] [address] * (ABNORMAL) CBC without differential (10/12/2024 9:40 PM QUALITY HEAD) WBC 13.9(H) 3.8 - 9.9 K/cumm Hgb 11.4(L) 13.0 - 17.5 g/dL [facility] Hct 35.0(L) 38.9 - 50.3 % [facility] Plt 232 150 - 400 K/cumm [facility] MPV 10.5 9.1 - 12.3 fL [facility] RBC 3.59(L) 4.30 - 5.80 M/cumm [facility] MCV 97.5(H) 81.3 - 96.4 fL [facility] MCH 31.8 27.1 - 33.3 pg [facility] MCHC 32.6 32.3 - 35.7 g/dL [facility] RDW CV 14.6 11.1 - 14.9 % [facility] RDW SD 51.2(H) 35.7 - 48.1 fL [facility] NRBC abs 0.00 0.00 - 0.01 K/cumm [facility] Blood 10/12/2024 9:40 PM QUALITY HEAD 10/12/2024 11:24 PM QUALITY HEAD Maria Isabel Unger NP LAB BLOOD ORDERABLES Final Result [facility] Department [place] [address] * (ABNORMAL) Basic metabolic panel (10/12/2024 9:40 PM QUALITY HEAD) Sodium 144 135 - 145 mmol/L Potassium, pl 4.4 3.3 - 4.9 mmol/L [facility] Chloride 109 97 - 110 mmol/L [facility] CO2 27 22 - 32 mmol/L [facility] Anion gap 8 2 - 15 mmol/L [facility] BUN 28(H) 6 - 25 mg/dL [facility] Creatinine 1.48(H) 0.80 - 1.30 mg/dL [facility] Glucose 110 70 - 199 mg/dL [facility] Comment: Interpretive Data Fasting glucose >/= [...] 2022. Calcium 8.4(L) 8.5 - 10.3 mg/dL [facility] Blood 10/12/2024 9:40 PM QUALITY HEAD 10/12/2024 11:24 PM QUALITY HEAD James Robles MD LAB BLOOD ORDERABLES Final Resu lt Performing Organization Address [facility] Co de Phone Number [facility] [place] [address] * (ABNORMAL) aPTT (10/12/2024 6:21 AM QUALITY HEAD) [facility] aPTT 51(H) 28 - 38 sec Comment: Interpretive Data Heparin therapeutic range: 66.0 - 100.0 seconds. Range based on correlation with therapeutic heparin activity range of 0.3 - 0.7 Units/mL. Current interpretive data was last revised on 2023. Blood 10/12/2024 6:21 AM QUALITY HEAD 10/12/2024 6:49 AM QUALITY HEAD Narrative [facility] - 10/12/2024 6:56 AM QUALITY HEAD STAT PTT timing: - Draw 6 hours [...] ORDERABLES Final Resu lt Performing Organization Address [facility]/ZIP Co de Phone Number [facility] [place] [address] * (ABNORMAL) aPTT (10/12/2024 12:54 AM QUALITY HEAD) Pathologist [facility] aPTT 51(H) 28 - 38 sec Comment: Interpretive Data Heparin therapeutic range: 66.0 - 100.0 seconds. Range based on correlation with therapeutic heparin activity range of 0.3 - 0.7 Units/mL. Current interpretive data was last revised on 2023. Blood 10/12/2024 12:5 4 AM QUALITY HEAD 10/12/2024 1:09 AM QUALITY HEAD Narrative [facility] - 10/12/2024 1:17 AM QUALITY HEAD STAT PTT timing: - Draw 6 hours [...] MD LAB BLOOD ORDERABLES Final Resu lt [facility] Department [place] [address] * (ABNORMAL) eGFR (10/11/2024 9:52 PM QUALITY HEAD) Pathologist [facility] eGFR 42(L) >=60 mL/min/1. 73 m2 Comment: [...] last reviewed 2021. Blood 10/11/2024 9:52 PM QUALITY HEAD 10/11/2024 11:34 PM QUALITY HEAD us James Robles MD LAB BLOOD ORDERABLES Final Resu lt [facility] Department [place] [address] * (ABNORMAL) CBC without differential (10/11/2024 9:52 PM QUALITY HEAD) WBC 15.3(H) 3.8 - 9.9 K/cumm Hgb 10.9(L) 13.0 - 17.5 g/dL [facility] Hct 33.4(L) 38.9 - 50.3 % [facility] Plt 234 150 - 400 K/cumm [facility] MPV 10.4 9.1 - 12.3 fL [facility] RBC 3.47(L) 4.30 - 5.80 M/cumm [facility] MCV 96.3 81.3 - 96.4 fL [facility] MCH 31.4 27.1 - 33.3 pg [facility] MCHC 32.6 32.3 - 35.7 g/dL [facility] RDW CV 14.3 11.1 - 14.9 % [facility] RDW SD 49.6(H) 35.7 - 48.1 fL [facility] NRBC abs 0.00 0.00 - 0.01 K/cumm [facility] Blood 10/11/2024 9:52 PM QUALITY HEAD 10/11/2024 11:34 PM QUALITY HEAD us Maria Isabel Unger NP LAB BLOOD ORDERABLES Final Result Performing Organization Address [facility]/ZIP Co de Phone Number [facility] Department [place] [address] * (ABNORMAL) Basic metabolic panel (10/11/2024 9:52 PM QUALITY HEAD) Sodium 141 135 - 145 mmol/L Potassium, pl 4.6 3.3 - 4.9 mmol/L [facility] Chloride 107 97 - 110 mmol/L [facility] CO2 27 22 - 32 mmol/L [facility] Anion gap 7 2 - 15 mmol/L [facility] BUN 35(H) 6 - 25 mg/dL [facility] Creatinine 1.68(H) 0.80 - 1.30 mg/dL [facility] Glucose 115 70 - 199 mg/dL [facility] Comment: Interpretive Data Fasting glucose >/= [...] 2022. Calcium 8.1(L) 8.5 - 10.3 mg/dL [facility] Blood 10/11/2024 9:52 PM QUALITY HEAD 10/11/2024 11:34 PM QUALITY HEAD James Robles MD LAB BLOOD ORDERABLES Final Resu lt Performing Organization Address [facility] de Phone Number [facility] [place] Department [place] [address] * aPTT (10/11/2024 5:30 PM QUALITY HEAD) [facility] aPTT 33 28 - 38 sec Comment: Interpretive Data Heparin therapeutic range: 66.0 - 100.0 seconds. Range based on correlation with therapeutic heparin activity range of 0.3 - 0.7 Units/mL. Current interpretive data was last revised on 2023. Blood 10/11/2024 5:30 PM QUALITY HEAD 10/11/2024 5:59 PM QUALITY HEAD Narrative [facility] - 10/11/2024 6:07 PM QUALITY HEAD STAT PTT timing: - Draw 6 hours [...] ORDERABLES Final Resu lt Performing Organization Address [facility] Co de Phone Number [facility] Department [place] [address] * (ABNORMAL) eGFR (10/10/2024 8:04 PM QUALITY HEAD) [facility] eGFR 45(L) >=60 mL/min/1. 73 m2 Comment: [...] last reviewed 2021. Blood 10/10/2024 8:04 PM QUALITY HEAD 10/10/2024 8:34 PM QUALITY HEAD James Robles MD LAB BLOOD ORDERABLES Final Resu lt Performing Organization Address [facility] Co de Phone Number [facility] [place] [address] * (ABNORMAL) aPTT (10/10/2024 8:04 PM QUALITY HEAD) aPTT 22(L) 28 - 38 sec Comment: Interpretive Data Heparin therapeutic range: 66.0 - 100.0 seconds. Range based on correlation with therapeutic heparin activity range of 0.3 - 0.7 Units/mL. Current interpretive data was last revised on 2023. Blood 10/10/2024 8:04 PM QUALITY HEAD 10/10/2024 8:24 PM QUALITY HEAD James Robles MD LAB BLOOD ORDERABLES Final [facility] [place] [address] * Protime-INR (10/10/2024 8:04 PM QUALITY HEAD) PT 12.0 9.7 - 13.0 sec INR 1.11 0.90 - 1.20 [facility] Comment: Interpretive data Oral anticoagulant therapeutic ranges: Venous thromboembolism prophylaxis or treatment: 2.0-3.0 CARDIOLOGY Standard range: 2.0-3.0 High-intensity range: 2.5-3.5 Refer to indication-specific guidelines for appropriate target ranges for prosthetic heart valve replacement. Current interpretive data was last revised on 2019. Blood 10/10/2024 8:04 PM QUALITY HEAD 10/10/2024 8:24 PM QUALITY HEAD us James Robles MD LAB BLOOD ORDERABLES Final Resu lt [facility] Department [place] [address] * (ABNORMAL) aPTT (10/10/2024 8:04 PM QUALITY HEAD) aPTT 22(L) 28 - 38 sec Comment: Interpretive Data Heparin therapeutic range: 66.0 - 100.0 seconds. Range based on correlation with therapeutic heparin activity range of 0.3 - 0.7 Units/mL. Current interpretive data was last revised on 2023. Blood 10/10/2024 8:04 PM QUALITY HEAD 10/10/2024 8:24 PM QUALITY HEAD Narrative [facility] - 10/10/2024 8:33 PM QUALITY HEAD STAT PTT timing: - Draw 6 hours [...] ORDERABLES Final Resu lt Performing Organization Address [facility]/ZIP Co de Phone Number [facility] [place] Department [place] [address] * (ABNORMAL) CBC without differential (10/10/2024 8:04 PM QUALITY HEAD) Pathologist [facility] WBC 17.1(H) 3.8 - 9.9 K/cumm Hgb 11.6(L) 13.0 - 17.5 g/dL [facility] Hct 34.3(L) 38.9 - 50.3 % [facility] Plt 260 150 - 400 K/cumm [facility] MPV 10.3 9.1 - 12.3 fL [facility] RBC 3.62(L) 4.30 - 5.80 M/cumm [facility] MCV 94.8 81.3 - 96.4 fL [facility] MCH 32.0 27.1 - 33.3 pg [facility] MCHC 33.8 32.3 - 35.7 g/dL [facility] RDW CV 14.2 11.1 - 14.9 % [facility] RDW SD 48.3(H) 35.7 - 48.1 fL [facility] NRBC abs 0.00 0.00 - 0.01 K/cumm [facility] Blood 10/10/2024 8:04 PM [facility] 10/10/2024 8:34 PM [facility] Maria Isabel Unger NP LAB BLOOD ORDERABLES Final Result Performing Organization Address [facility]/ZIP Co de Phone Number [facility] Department [place] [address] * (ABNORMAL) Basic metabolic panel (10/10/2024 8:04 PM [facility]) Pathologist [facility] [place] Sodium 140 135 - 145 mmol/L Potassium, pl 4.6 3.3 - 4.9 mmol/L [facility] Chloride 105 97 - 110 mmol/L [facility] CO2 24 22 - 32 mmol/L [facility] Anion gap 11 2 - 15 mmol/L [facility] BUN 32(H) 6 - 25 mg/dL [facility] Creatinine 1.59(H) 0.80 - 1.30 mg/dL [facility] Glucose 108 70 - 199 mg/dL [facility] Comment: Interpretive Data Fasting glucose >/= [...] 2022. Calcium 8.4(L) 8.5 - 10.3 mg/dL [facility] Blood 10/10/2024 8:04 PM QUALITY HEAD 10/10/2024 8:34 PM QUALITY HEAD us James Robles MD LAB BLOOD ORDERABLES Final Resu lt [facility] [place] [address] * (ABNORMAL) CBC without differential (10/10/2024 11:51 AM QUALITY HEAD) [facility] WBC 21.0(H) 3.8 - 9.9 K/cumm Hgb 12.0(L) 13.0 - 17.5 g/dL [facility] Hct 36.7(L) 38.9 - 50.3 % [facility] Plt 272 150 - 400 K/cumm [facility] MPV 10.4 9.1 - 12.3 fL [facility] RBC 3.84(L) 4.30 - 5.80 M/cumm [facility] MCV 95.6 81.3 - 96.4 fL [facility] MCH 31.3 27.1 - 33.3 pg [facility] MCHC 32.7 32.3 - 35.7 g/dL [facility] RDW CV 14.0 11.1 - 14.9 % [facility] RDW SD 47.8 35.7 - 48.1 fL [facility] NRBC abs 0.00 0.00 - 0.01 K/cumm [facility] Blood 10/10/2024 11:5 1 AM QUALITY HEAD 10/10/2024 12:26 PM QUALITY HEAD Narrative [facility] - 10/10/2024 12:37 PM QUALITY HEAD Baseline prior to heparin initiation James Robles MD LAB BLOOD ORDERABLES Final Resu lt Performing Organization Address [facility] Co de Phone Number [facility] [place] [address] * (ABNORMAL) aPTT (10/10/2024 11:36 AM QUALITY HEAD) aPTT 23(L) 28 - 38 sec Comment: Interpretive Data Heparin therapeutic range: 66.0 - 100.0 seconds. Range based on correlation with therapeutic heparin activity range of 0.3 - 0.7 Units/mL. Current interpretive data was last revised on 2023. Blood 10/10/2024 11:3 6 AM QUALITY HEAD 10/10/2024 11:47 AM QUALITY HEAD Narrative [facility] - 10/10/2024 12:16 PM QUALITY HEAD Baseline prior to heparin initiation James Robles MD LAB BLOOD ORDERABLES Final Resu lt Performing Organization Address City/[facility]/ZIP Co de Phone Number [facility] [place] [address] * Protime-INR (10/10/2024 11:36 AM QUALITY HEAD) PT 11.3 9.7 - 13.0 sec INR 1.05 0.90 - 1.20 [facility] Comment: Interpretive data Oral anticoagulant therapeutic ranges: Venous thromboembolism prophylaxis or treatment: 2.0-3.0 CARDIOLOGY Standard range: 2.0-3.0 High-intensity range: 2.5-3.5 Refer to indication-specific guidelines for appropriate target ranges for prosthetic heart valve replacement. Current interpretive data was last revised on 2019. Blood 10/10/2024 11:3 6 AM QUALITY HEAD 10/10/2024 11:47 AM QUALITY HEAD Narrative [facility] - 10/10/2024 12:16 PM QUALITY HEAD Baseline prior to heparin initiation us James Robles MD LAB BLOOD ORDERABLES Final Resu lt [facility] [place] [address] * (ABNORMAL) eGFR (10/10/2024 3:19 AM QUALITY HEAD) eGFR 53(L) >=60 mL/min/1. 73 m2 Comment: [...] last reviewed 2021. Blood 10/10/2024 3:19 AM QUALITY HEAD 10/10/2024 5:57 AM QUALITY HEAD James Robles MD LAB BLOOD ORDERABLES Final Resu lt [facility] [place] [address] * (ABNORMAL) CBC without differential (10/10/2024 3:19 AM QUALITY HEAD) WBC 18.6(H) 3.8 - 9.9 K/cumm Hgb 11.7(L) 13.0 - 17.5 g/dL [facility] Hct 35.3(L) 38.9 - 50.3 % [facility] Plt 234 150 - 400 K/cumm [facility] MPV 10.4 9.1 - 12.3 fL [facility] RBC 3.69(L) 4.30 - 5.80 M/cumm [facility] MCV 95.7 81.3 - 96.4 fL [facility] MCH 31.7 27.1 - 33.3 pg [facility] MCHC 33.1 32.3 - 35.7 g/dL [facility] RDW CV 14.1 11.1 - 14.9 % [facility] RDW SD 48.1 35.7 - 48.1 fL [facility] NRBC abs 0.00 0.00 - 0.01 K/cumm [facility] Blood 10/10/2024 3:19 AM QUALITY HEAD 10/10/2024 6:01 AM QUALITY HEAD us Maria Isabel Unger NP LAB BLOOD ORDERABLES Final Result Performing Organization Address City/[facility]/ZIP Co de Phone Number [facility] [place] Department [place] [address] * (ABNORMAL) Basic metabolic panel (10/10/2024 3:19 AM QUALITY HEAD) Sodium 141 135 - 145 mmol/L Potassium, pl 4.2 3.3 - 4.9 mmol/L [facility] Chloride 106 97 - 110 mmol/L [facility] CO2 27 22 - 32 mmol/L [facility] Anion gap 8 2 - 15 mmol/L [facility] BUN 34(H) 6 - 25 mg/dL [facility] Creatinine 1.38(H) 0.80 - 1.30 mg/dL [facility] Glucose 95 70 - 199 mg/dL [facility] Comment: Interpretive Data Fasting glucose >/= [...] 2022. Calcium 8.5 8.5 - 10.3 mg/dL [facility] Blood 10/10/2024 3:19 AM QUALITY HEAD 10/10/2024 5:57 AM QUALITY HEAD us James Robles MD LAB BLOOD ORDERABLES Final Resu lt [facility] [place] [address] * POCT glucose (10/09/2024 8:41 PM QUALITY HEAD) Glucose, POC 141 70 - 199 mg/dL Blood 10/09/2024 8:41 PM QUALITY HEAD 10/09/2024 8:41 PM QUALITY HEAD James Robles MD LAB POCT ORDERABLES - DEVICE Fi nal Result [facility] Department [place] [address] * US Vein Duplex Lower Extremity Bilateral Complete (10/09/2024 10:08 AM QUALITY HEAD) Anatomical Region Laterality Modality Vascular Bilateral Ultrasound 10/09/2024 9:49 AM QUALITY HEAD Narrative 10/09/2024 11:51 AM QUALITY HEAD [facility] - Department of Vascular Surgery, Vascular Laboratory [address] [place] [id number] Lower Extremity Venous Ultrasound Report Patient Name: LILI DELGADO F : 1950 (74y ) Study Date: 10/09/2024 9:49:45 AM Gender: M Tech: AL Location: [id number] Ref Provider: OSIRIS GUILLEN ?Quality: Adequate Order [...] Pain in Leg, Right - FINDINGS: Performing Nurses Supervisor: Niurka Krishna RVT. Right: Duplex scan reveals [...] above. Electronically Signed By: Tyshawn Mullins MD [facility] 2024-10-09 11:50:17 QUALITY HEAD Procedure Note Tyshawn Mullins MD - 10/09/2024 [facility] - Department of Vascular Surgery,Vascular Laboratory [address] [place] [address] Lower Extremity Venous Ultrasound Report Patient Name: LILI DELGADO F : 1950 (74y ) Study Date: 10/09/2024 9:49:45 AM Gender: M Tech: AL Location: [id number] Ref Provider: OSIRIS GUILLEN Quality: Adequate Order [...] Pain in Leg, Right - FINDINGS: Performing Nurses Supervisor: Niurka Krishna RVT. Right: Duplex scan reveals [...] above. Electronically Signed By: Tyshawn Mullins MD [facility] 2024-10-09 11:50:17 QUALITY HEAD us Osiris Guillen NP IMG US PROCEDURES Final Result * XR Chest 1 View (10/09/2024 7:55 AM QUALITY HEAD) Anatomical Region Laterality Modality Body, Chest N/A Digital Radiogra phy 10/09/2024 1:25 PM QUALITY HEAD Impressions 10/09/2024 4:11 PM QUALITY HEAD 1. ??Interval increase in left lung base atelectasis. Dictated by: Gabriel Warner M.D. The radiology attending physician has personally reviewed this study, and had reviewed and/or edited this written report and agrees with it. Electronically signed by: Austin Olsen M.D. Narrative 10/09/2024 4:11 PM QUALITY HEAD EXAMINATION: 1 view chest radiograph History: 74-year-old [...] left lung base atelectasis. Dictated by: Gabriel Wanrer M.D. The radiology attending physician has personally reviewed this study, and had reviewed and/or edited this written report and agrees with it. Electronically signed by: Austin Olsen M.D. Osiris Guillen STRATEGIC PLANNING CONSULTANT IMG XR PROCEDURES Final Result * (ABNORMAL) eGFR (10/08/2024 10:15 PM QUALITY HEAD) eGFR 55(L) >=60 mL/min/1. 73 m2 Comment: [...] reviewed 2021. Blood 10/08/2024 10:1 5 PM QUALITY HEAD 10/08/2024 11:56 PM QUALITY HEAD Brianna Martínez STRATEGIC PLANNING CONSULTANT LAB BLOOD ORDERABLES Cammy l Result Performing Organization Address City/[facility]/ZIP Co de Phone Number [facility] [place] [address] * Phosphorus (10/08/2024 10:15 PM QUALITY HEAD) Pathologist [facility] [place] Phosphorus, pl 3.1 2.3 - 4.5 mg/dL Blood 10/08/2024 10:1 5 PM QUALITY HEAD 10/08/2024 11:56 PM QUALITY HEAD Brianna Martínez STRATEGIC PLANNING CONSULTANT LAB BLOOD ORDERABLES Cammy l Result Performing Organization Address [facility] [place] [address] * Magnesium (10/08/2024 10:15 PM QUALITY HEAD) [facility] Magnesium 2.3 1.4 - 2.5 mg/dL Blood 10/08/2024 10:1 5 PM QUALITY HEAD 10/08/2024 11:56 PM QUALITY HEAD Brianna Martínez STRATEGIC PLANNING CONSULTANT LAB BLOOD ORDERABLES Cammy l Result Performing Organization Address [facility] [place] [address] * (ABNORMAL) Comprehensive metabolic panel (10/08/2024 10:15 PM QUALITY HEAD) Pathologist [facility] Sodium 141 135 - 145 mmol/L Potassium, pl 4.6 3.3 - 4.9 mmol/L [facility] Chloride 107 97 - 110 mmol/L [facility] CO2 25 22 - 32 mmol/L [facility] Anion gap 9 2 - 15 mmol/L [facility] BUN 33(H) 6 - 25 mg/dL [facility] Creatinine 1.33(H) 0.80 - 1.30 mg/dL [facility] Glucose 108 70 - 199 mg/dL [facility] Comment: Interpretive Data Fasting glucose >/= [...] 2022. Calcium 8.6 8.5 - 10.3 mg/dL [facility] Bilirubin, total 0.3 0.1 - 1.2 mg/dL [facility] Protein, pl 4.8(L) 6.5 - 8.5 g/dL [facility] Albumin 2.9(L) 3.5 - 5.0 g/dL [facility] Alk phos 49 40 - 130 Units/L [facility] ALT 39 7 - 55 Units/L [facility] AST 19 10 - 50 Units/L [facility] Blood 10/08/2024 10:1 5 PM QUALITY HEAD 10/08/2024 11:56 PM QUALITY HEAD Brianna Martínez STRATEGIC PLANNING CONSULTANT LAB BLOOD ORDERABLES Cammy ramos Result [facility] Department [place] [address] * (ABNORMAL) CBC without differential (10/08/2024 10:15 PM QUALITY HEAD) WBC 19.8(H) 3.8 - 9.9 K/cumm Hgb 11.2(L) 13.0 - 17.5 g/dL [facility] Hct 32.9(L) 38.9 - 50.3 % [facility] Plt 264 150 - 400 K/cumm [facility] MPV 10.5 9.1 - 12.3 fL [facility] RBC 3.57(L) 4.30 - 5.80 M/cumm [facility] MCV 92.2 81.3 - 96.4 fL [facility] MCH 31.4 27.1 - 33.3 pg [facility] MCHC 34.0 32.3 - 35.7 g/dL [facility] RDW CV 13.7 11.1 - 14.9 % [facility] RDW SD 45.1 35.7 - 48.1 fL [facility] NRBC abs 0.02(H) 0.00 - 0.01 K/cumm [facility] Blood 10/08/2024 10:1 5 PM QUALITY HEAD 10/08/2024 11:57 PM QUALITY HEAD us Maria Isabel Unger STRATEGIC PLANNING CONSULTANT LAB BLOOD ORDERABLES Final Result Performing Organization Address [facility] Co de Phone Number [facility] [place] [address] * Troponin I high-sensitivity (10/08/2024 11:36 AM QUALITY HEAD) Trop I hs 30 <=35 ng/L Comment: Interpretive Data For further hscTnI resources including the diagnostic algorithm and an aid in interpretation, copy and paste this link: [email or web address]://bjhlab.testcatalog.org/show/[email or web address] Current Interpretive Data last revised 2020. Blood 10/08/2024 11:3 6 AM QUALITY HEAD 10/08/2024 11:44 AM QUALITY HEAD us Brianna Martínez STRATEGIC PLANNING CONSULTANT LAB BLOOD ORDERABLES Cammy l Result Performing Organization Address [facility]/ZIP Co de Phone Number [facility] [place] Department [place] [address] * (ABNORMAL) Lactate (10/08/2024 8:38 AM QUALITY HEAD) Lactate 2.9(H) 0.7 - 2.0 mmol/L Blood 10/08/2024 8:38 AM QUALITY HEAD 10/08/2024 11:44 AM QUALITY HEAD us Brianna Martínez NP LAB BLOOD ORDERABLES Cammy l Result Performing Organization Address City/[facility]/ZIP Co de Phone [facility] [place] [address] * eGFR (10/07/2024 10:19 PM QUALITY HEAD) eGFR 62 >=60 mL/min/1. 73 m2 Comment: [...] reviewed 2021. Blood 10/07/2024 10:1 9 PM QUALITY HEAD 10/07/2024 11:24 PM QUALITY HEAD us James Robles MD LAB BLOOD ORDERABLES Final Resu lt Performing Organization Address [facility]/ZIP Co de Phone Number [facility] [place] [address] * (ABNORMAL) CBC without differential (10/07/2024 10:19 PM QUALITY HEAD) [facility] WBC 17.2(H) 3.8 - 9.9 K/cumm Hgb 11.4(L) 13.0 - 17.5 g/dL [facility] Hct 32.7(L) 38.9 - 50.3 % [facility] Plt 264 150 - 400 K/cumm [facility] MPV 10.6 9.1 - 12.3 fL [facility] RBC 3.58(L) 4.30 - 5.80 M/cumm [facility] MCV 91.3 81.3 - 96.4 fL [facility] MCH 31.8 27.1 - 33.3 pg [facility] MCHC 34.9 32.3 - 35.7 g/dL [facility] RDW CV 13.2 11.1 - 14.9 % [facility] RDW SD 43.6 35.7 - 48.1 fL [facility] NRBC abs 0.00 0.00 - 0.01 K/cumm [facility] Blood 10/07/2024 10:1 9 PM QUALITY HEAD 10/07/2024 11:24 PM QUALITY HEAD Maria Isabel Unger NP LAB BLOOD ORDERABLES Final Result [facility] Department [place] [address] * (ABNORMAL) Basic metabolic panel (10/07/2024 10:19 PM QUALITY HEAD) [facility] Sodium 142 135 - 145 mmol/L Potassium, pl 4.5 3.3 - 4.9 mmol/L [facility] Chloride 107 97 - 110 mmol/L [facility] CO2 26 22 - 32 mmol/L [facility] Anion gap 9 2 - 15 mmol/L [facility] BUN 33(H) 6 - 25 mg/dL [facility] Creatinine 1.21 0.80 - 1.30 mg/dL [facility] Glucose 140 70 - 199 mg/dL [facility] Comment: Interpretive Data Fasting glucose >/= [...] 2022. Calcium 8.5 8.5 - 10.3 mg/dL [facility] Blood 10/07/2024 10:1 9 PM QUALITY HEAD 10/07/2024 11:24 PM QUALITY HEAD us James Robles MD LAB BLOOD ORDERABLES Final Resu lt Performing Organization Address [facility]/ZIP Co de Phone Number [facility] [place] [address] * (ABNORMAL) Lactate, whole blood (10/07/2024 9:09 AM QUALITY HEAD) Pathologist [facility] Lactate, bld 3.4(H) 0.7 - 2.0 mmol/L Blood 10/07/2024 9:09 AM QUALITY HEAD 10/07/2024 9:15 AM QUALITY HEAD us Brianna Martínez NP LAB BLOOD ORDERABLES Cammy l Result Performing Organization Address City/[facility]/ZIP Co de Phone Number [facility] [place] Department [place] [address] * (ABNORMAL) Urinalysis, microscopic only (10/07/2024 5:37 AM QUALITY HEAD) WBC, ur 0-5 0 - 5 /HPF RBC, ur 11-20(A) 0 - 2 /HPF [facility] Mucous, ur Present(A) [facility] Culture Reflex Comment Reflex conditions for urine culture (WBC >10) not met. [facility] Urine 10/07/2024 5:37 AM QUALITY HEAD 10/07/2024 5:46 AM QUALITY HEAD Result [facility] James Robles MD LAB URINE ORDERABLES Final Resu lt Performing Organization Address City/[facility]/ZIP Co de Phone Number [facility] [place] Department [place] [address] * (ABNORMAL) Urinalysis reflex to microscopic and culture Urine (10/07/2024 5:37 AM QUALITY HEAD) Color, ur Straw Yellow Clarity, ur Clear Clear [facility] Specific gravity, ur 1.013 1.003 - 1.030 [facility] pH, urine 7.0 [facility] Comment: Interpretive Data ? Urine pH is affected by diet, medications, systemic acid-base disturbances, and renal tubular function. ??pH may affect urinary stone formation. ??For example, urine pH below 6.0 may help reduce the tendency for calcium phosphate stones and pH greater than 6.0 may reduce the tendency for uric acid stone formation. Source: [facility] Current Interpretive Data was last revised on 2017 Protein, ur ql Negative Negative [facility] Glucose, ur ql Negative Negative [facility] Ketones, ur Negative Negative [facility] Bilirubin, ur Negative Negative [facility] Blood, ur Trace(A) Negative [facility] Urobilinogen, ur <2.0 <2.0 mg/dL [facility] Nitrite, ur Negative Negative [facility] Leukocyte esterase, ur Negative Negative [facility] UA reflex comment Reflex to microscopic UA will be performed. [facility] Urine 10/07/2024 5:37 AM QUALITY HEAD 10/07/2024 5:46 AM QUALITY HEAD James Robles MD LAB MICROBIOLOGY - GENERAL ORDE RABLES Final Result [facility] [place] Department [place] [address] * Blood culture Blood (10/07/2024 5:37 AM QUALITY HEAD) Report Final Report: No growth Blood 10/07/2024 5:37 AM QUALITY HEAD 10/07/2024 7:00 AM QUALITY HEAD Narrative [facility] - 10/11/2024 7:00 AM QUALITY HEAD Collection->Peripheral 1. ?Blood cultures are incubated for [...] organism identification may be performed using the Iggliigene Gram-Positive Blood Culture Assay. This assay detects microbial DNA in positive blood culture broth via hybridization of target DNA to capture oligonucleotides on a microarray. This assay has been cleared by the [place] Food and Drug Administration and its performance characteristics have been verified by the [facility]. 5. ?For questions about this culture, contact the Microbiology Laboratory at [phone]. Interpretive data was last revised on 2020. us James Robles MD LAB MICROBIOLOGY - GENERAL RAYMOND JEFFERY Final Result [facility] Department [place] [address] * Blood culture Blood (10/07/2024 5:37 AM QUALITY HEAD) Report Final Report: No growth Blood 10/07/2024 5:37 AM QUALITY HEAD 10/07/2024 6:07 AM QUALITY HEAD Narrative [facility] MA[facility] - 10/11/2024 7:00 AM QUALITY HEAD Collection->Peripheral 1. ?Blood cultures are incubated for [...] organism identification may be performed using the [employer] Gram-Positive Blood Culture Assay. This assay detects microbial DNA in positive blood culture broth via hybridization of target DNA to capture oligonucleotides on a microarray. This assay has been cleared by the [place] Food and Drug Administration and its performance characteristics have been verified by the [facility]biology [facility]. 5. ?For questions about this culture, contact the Microbiology Laboratory at [phone]. Interpretive data was last revised on 2020. James Robles MD LAB MICROBIOLOGY - GENERAL RAYMOND JEFFERY Final Result [facility] Department [place] [address] * XR Chest 1 View (10/07/2024 5:18 AM QUALITY HEAD) Anatomical Region Laterality Modality Body, Chest N/A Computed Radiogr aphy 10/07/2024 7:05 AM QUALITY HEAD Impressions 10/07/2024 7:05 AM QUALITY HEAD The current study is compared with the prior radiograph dated ??10/02/2024. ??Spine stimulator is present. ??The heart and mediastinal contours are normal. ??There is no mass or consolidation. There is no lymphadenopathy. ??There are no pleural effusions. ??There is no pneumothorax. There is no interval change. Electronically signed by: Lauren Cantrell M.D. Narrative 10/07/2024 7:05 AM QUALITY HEAD EXAMINATION: 1 view chest radiograph Procedure Note [...] (ABNORMAL) Lactate, whole blood (10/06/2024 9:30 PM QUALITY HEAD) Lactate, bld 2.7(H) 0.7 - 2.0 mmol/L Blood 10/06/2024 9:30 PM QUALITY HEAD 10/06/2024 9:30 PM QUALITY HEAD us Tamanna Porras NP LAB BLOOD ORDERABLES Final Resul t Performing Organization Address City/State/[facility] Co de Phone Number [facility] Department [place] [address] * eGFR (10/06/2024 9:16 PM QUALITY HEAD) eGFR 61 >=60 mL/min/1. 73 m2 Comment: [...] last reviewed 2021. Blood 10/06/2024 9:16 PM QUALITY HEAD 10/06/2024 9:34 PM QUALITY HEAD us James Robles MD LAB BLOOD ORDERABLES Final Resu lt [facility] Department [place] [address] * (ABNORMAL) CBC without differential (10/06/2024 9:16 PM QUALITY HEAD) WBC 17.1(H) 3.8 - 9.9 K/cumm Hgb 10.8(L) 13.0 - 17.5 g/dL [facility] Hct 30.7(L) 38.9 - 50.3 % [facility] Plt 256 150 - 400 K/cumm [facility] MPV 10.3 9.1 - 12.3 fL [facility] RBC 3.40(L) 4.30 - 5.80 M/cumm [facility] MCV 90.3 81.3 - 96.4 fL [facility] MCH 31.8 27.1 - 33.3 pg [facility] MCHC 35.2 32.3 - 35.7 g/dL [facility] RDW CV 13.1 11.1 - 14.9 % [facility] RDW SD 43.2 35.7 - 48.1 fL [facility] NRBC abs 0.00 0.00 - 0.01 K/cumm [facility] Blood 10/06/2024 9:16 PM QUALITY HEAD 10/06/2024 9:34 PM QUALITY HEAD Maria Isabel Unger NP LAB BLOOD ORDERABLES Final Result Performing Organization Address City/[facility]/ZIP Co de Phone Number [facility] Department [place] [address] * (ABNORMAL) Basic metabolic panel (10/06/2024 9:16 PM QUALITY HEAD) Sodium 140 135 - 145 mmol/L Potassium, pl 4.7 3.3 - 4.9 mmol/L [facility] Chloride 105 97 - 110 mmol/L [facility] CO2 25 22 - 32 mmol/L [facility] Anion gap 10 2 - 15 mmol/L [facility] BUN 32(H) 6 - 25 mg/dL [facility] Creatinine 1.22 0.80 - 1.30 mg/dL [facility] Glucose 152 70 - 199 mg/dL [facility] Comment: Interpretive Data Fasting glucose >/= [...] 2022. Calcium 8.7 8.5 - 10.3 mg/dL [facility] Blood 10/06/2024 9:16 PM QUALITY HEAD 10/06/2024 9:34 PM QUALITY HEAD us James Robles MD LAB BLOOD ORDERABLES Final Resu lt [facility] Department [place] [address] * eGFR (10/05/2024 10:43 PM QUALITY HEAD) Pathologist [facility] [place] eGFR 67 [...] reviewed 2021. Blood 10/05/2024 10:4 3 PM QUALITY HEAD 10/05/2024 11:10 PM QUALITY HEAD us James Robles MD LAB BLOOD ORDERABLES Final Resu lt [facility] Department [place] [address] * (ABNORMAL) CBC without differential (10/05/2024 10:43 PM QUALITY HEAD) Pathologist [facility] WBC 16.5(H) 3.8 - 9.9 K/cumm Hgb 10.5(L) 13.0 - 17.5 g/dL [facility] Hct 31.4(L) 38.9 - 50.3 % [facility] Plt 238 150 - 400 K/cumm [facility] MPV 10.7 9.1 - 12.3 fL [facility] RBC 3.37(L) 4.30 - 5.80 M/cumm [facility] MCV 93.2 81.3 - 96.4 fL [facility] MCH 31.2 27.1 - 33.3 pg [facility] MCHC 33.4 32.3 - 35.7 g/dL [facility] RDW CV 13.3 11.1 - 14.9 % [facility] RDW SD 45.3 35.7 - 48.1 fL [facility] NRBC abs 0.00 0.00 - 0.01 K/cumm [facility] Blood 10/05/2024 10:4 3 PM QUALITY HEAD 10/05/2024 11:11 PM QUALITY HEAD us Maria Isabel Unger STRATEGIC PLANNING CONSULTANT LAB BLOOD ORDERABLES Final Result Performing Organization Address City/[facility]/ZIP Co de Phone Number [facility] Department of Laboratories [place], [place] [id number] * (ABNORMAL) Lactate, whole blood (10/05/2024 10:43 PM QUALITY HEAD) Pathologist [facility] [place] Lactate, bld 2.2(H) 0.7 - 2.0 mmol/L Blood 10/05/2024 10:4 3 PM QUALITY HEAD 10/05/2024 11:07 PM QUALITY HEAD Tamanna Porras STRATEGIC PLANNING CONSULTANT LAB BLOOD ORDERABLES Final Resul t Performing Organization Address [facility]/ZIP Co de Phone Number [facility] Department [place] [address] * (ABNORMAL) Basic metabolic panel (10/05/2024 10:43 PM QUALITY HEAD) Sodium 143 135 - 145 mmol/L Potassium, pl 4.4 3.3 - 4.9 mmol/L [facility] Chloride 108 97 - 110 mmol/L [facility] CO2 25 22 - 32 mmol/L [facility] Anion gap 10 2 - 15 mmol/L [facility] BUN 30(H) 6 - 25 mg/dL [facility] Creatinine 1.14 0.80 - 1.30 mg/dL [facility] Glucose 139 70 - 199 mg/dL [facility] Comment: Interpretive Data Fasting glucose >/= [...] 2022. Calcium 8.8 8.5 - 10.3 mg/dL [facility] Blood 10/05/2024 10:4 3 PM QUALITY HEAD 10/05/2024 11:10 PM QUALITY HEAD us James Robles MD LAB BLOOD ORDERABLES Final Resu lt [facility] Department [place] [address] * (ABNORMAL) eGFR (10/04/2024 8:49 PM QUALITY HEAD) [facility] eGFR 57(L) >=60 mL/min/1. 73 m2 Comment: [...] last reviewed 2021. Blood 10/04/2024 8:49 PM QUALITY HEAD 10/04/2024 9:06 PM QUALITY HEAD us James Robles MD LAB BLOOD ORDERABLES Final Resu lt [facility] Department [place] [address] * (ABNORMAL) Differential, auto (10/04/2024 8:49 PM QUALITY HEAD) Pathologist [facility] [place] Neutrophil abs 20.1(H) 1.5 - 6.5 K/cumm Imm gran abs 0.3(H) 0.0 - 0.1 K/cumm [facility] Lymphocyte abs 1.2 0.8 - 3.3 K/cumm [facility] Monocyte abs 1.4(H) 0.2 - 0.8 K/cumm [facility] Eosinophil abs 0.0 0.0 - 0.5 K/cumm [facility] Basophil abs 0.0 0.0 - 0.1 K/cumm [facility] Neutrophil pct 87.4 % [facility] Comment: Consistent with previous result Interpretive Data Percent cell count reference ranges are not reported, since discordance with absolute values may lead to misinterpretation of CBC data. Current Interpretive Data was last revised on 2018. Imm gran pct 1.3 % [facility] Comment: Interpretive Data Percent cell count reference ranges are not reported, since discordance with absolute values may lead to misinterpretation of CBC data. Current Interpretive Data was last revised on 2018. Lymphocyte pct 5.2 % [facility] Comment: Interpretive Data Percent cell count reference ranges are not reported, since discordance with absolute values may lead to misinterpretation of CBC data. Current Interpretive Data was last revised on 2018. Monocyte pct 6.0 % [facility] Comment: Interpretive Data Percent cell count reference ranges are not reported, since discordance with absolute values may lead to misinterpretation of CBC data. Current Interpretive Data was last revised on 2018. Eosinophil pct 0.0 % [facility] Comment: Interpretive Data Percent cell count reference ranges are not reported, since discordance with absolute values may lead to misinterpretation of CBC data. Current Interpretive Data was last revised on 2018. Basophil pct 0.1 % [facility] Comment: Interpretive Data Percent cell count reference ranges are not reported, since discordance with absolute values may lead to misinterpretation of CBC data. Current Interpretive Data was last revised on 2018. Blood 10/04/2024 8:49 PM QUALITY HEAD 10/04/2024 9:06 PM QUALITY HEAD us James Robles MD LAB BLOOD ORDERABLES Final Resu lt [facility] Department [place] [address] * (ABNORMAL) Lactate, whole blood (10/04/2024 8:49 PM QUALITY HEAD) Lactate, bld 2.5(H) 0.7 - 2.0 mmol/L Blood 10/04/2024 8:49 PM QUALITY HEAD 10/04/2024 9:00 PM QUALITY HEAD us Tamanna Porras NP LAB BLOOD ORDERABLES Final Resul t [facility] Department [place] [address] * Calcium, ionized, whole blood (10/04/2024 8:49 PM QUALITY HEAD) [facility] Ca, ionized, bld 5.10 4.50 - 5.10 mg/dL Blood 10/04/2024 8:49 PM QUALITY HEAD 10/04/2024 9:00 PM QUALITY HEAD us Tamanna Porras STRATEGIC PLANNING CONSULTANT LAB BLOOD ORDERABLES Final Resul t Performing Organization Address [facility] de Phone Number [facility] [place] [address] * (ABNORMAL) Troponin I high-sensitivity (10/04/2024 8:49 PM QUALITY HEAD) [facility] Trop I hs 128(H) <=35 ng/L Comment: Interpretive Data For further hscTnI resources including the diagnostic algorithm and an aid in interpretation, copy and paste this link: [email or web address].testcatalog.org/show/[email or web address] Current Interpretive Data last revised 2020. Blood 10/04/2024 8:49 PM QUALITY HEAD 10/04/2024 9:06 PM QUALITY HEAD us Tamanna Porras NP LAB BLOOD ORDERABLES Final Resul t Performing Organization Address [facility] Co de Phone Number [facility] Department [place] [address] * (ABNORMAL) CBC with auto differential (10/04/2024 8:49 PM QUALITY HEAD) [facility] WBC 23.0(H) 3.8 - 9.9 K/cumm Hgb 10.5(L) 13.0 - 17.5 g/dL [facility] Hct 31.0(L) 38.9 - 50.3 % [facility] Plt 207 150 - 400 K/cumm [facility] MPV 10.2 9.1 - 12.3 fL [facility] RBC 3.34(L) 4.30 - 5.80 M/cumm [facility] MCV 92.8 81.3 - 96.4 fL [facility] MCH 31.4 27.1 - 33.3 pg [facility] MCHC 33.9 32.3 - 35.7 g/dL [facility] RDW CV 13.6 11.1 - 14.9 % [facility] RDW SD 45.7 35.7 - 48.1 fL [facility] NRBC abs 0.00 0.00 - 0.01 K/cumm [facility] Blood 10/04/2024 8:49 PM QUALITY HEAD 10/04/2024 9:06 PM QUALITY HEAD us James Robles MD LAB BLOOD ORDERABLES Final Resu lt [facility] Department [place] [address] * (ABNORMAL) Basic metabolic panel (10/04/2024 8:49 PM QUALITY HEAD) Sodium 144 135 - 145 mmol/L Potassium, pl 4.4 3.3 - 4.9 mmol/L [facility] Chloride 113(H) 97 - 110 mmol/L [facility] CO2 22 22 - 32 mmol/L [facility] Anion gap 9 2 - 15 mmol/L [facility] BUN 24 6 - 25 mg/dL [facility] Creatinine 1.30 0.80 - 1.30 mg/dL [facility] Glucose 168 70 - 199 mg/dL [facility] Comment: Interpretive Data Fasting glucose >/= [...] 2022. Calcium 8.4(L) 8.5 - 10.3 mg/dL [facility] Blood 10/04/2024 8:49 PM QUALITY HEAD 10/04/2024 9:06 PM QUALITY HEAD us James Robles MD LAB BLOOD ORDERABLES Final Resu lt Performing Organization Address [facility] de Phone Number [facility] [place] [address] * (ABNORMAL) Urinalysis, microscopic only (10/04/2024 1:30 PM QUALITY HEAD) WBC, ur 0-5 0 - 5 /HPF RBC, ur >50(A) 0 - 2 /HPF [facility] Epithelial cells, squamous, ur 1-5 0 - 5 /HPF [facility] Mucous, ur Present(A) [facility] Culture Reflex Comment Reflex conditions for urine culture (WBC >10) not met. [facility] Urine 10/04/2024 1:30 PM QUALITY HEAD 10/04/2024 4:15 PM QUALITY HEAD us Tamanna Porras NP LAB URINE ORDERABLES Final Resul t Performing Organization Address [facility] de Phone Number [facility] [place] [address] * (ABNORMAL) Urinalysis reflex to microscopic and culture Urine (10/04/2024 1:30 PM QUALITY HEAD) Color, ur Straw Yellow Clarity, ur Clear Clear [facility] Specific gravity, ur 1.028 1.003 - 1.030 [facility] pH, urine 6.0 [facility] Comment: Interpretive Data ? Urine pH is affected by diet, medications, systemic acid-base disturbances, and renal tubular function. ??pH may affect urinary stone formation. ??For example, urine pH below 6.0 may help reduce the tendency for calcium phosphate stones and pH greater than 6.0 may reduce the tendency for uric acid stone formation. Source: [facility] Current Interpretive Data was last revised on 2017 Protein, ur ql 1+(A) Negative [facility] Glucose, ur ql Negative Negative [facility] Ketones, ur Negative Negative [facility] Bilirubin, ur Negative Negative [facility] Blood, ur 3+(A) Negative [facility] Urobilinogen, ur <2.0 <2.0 mg/dL [facility] Nitrite, ur Negative Negative [facility] Leukocyte esterase, ur Negative Negative [facility] UA reflex comment Reflex to microscopic UA will be performed. [facility] Urine 10/04/2024 1:30 PM QUALITY HEAD 10/04/2024 4:16 PM QUALITY HEAD Tamanna Porras NP LAB MICROBIOLOGY - GENERAL ORDER TALYA Final Result Performing Organization Address [facility]/ZIP Co de Phone Number [facility] Department [place] [address] * (ABNORMAL) Lactate, whole blood (10/04/2024 12:12 PM QUALITY HEAD) Pathologist [facility] [place] Lactate, bld 3.7(H) 0.7 - 2.0 mmol/L Blood 10/04/2024 12:1 2 PM QUALITY HEAD 10/04/2024 12:22 PM QUALITY HEAD Tamanna Porras NP LAB BLOOD ORDERABLES Final Resul t Performing Organization Address [facility]/ZIP Co de Phone Number [facility] Department [place] [address] * (ABNORMAL) Troponin I high-sensitivity 2-hour (10/04/2024 12:06 PM QUALITY HEAD) Pathologist [facility] [place] Trop I hs 132(H) <=35 ng/L Comment: Interpretive Data For further hscTnI resources including the diagnostic algorithm and an aid in interpretation, copy and paste this link: [email or web address]/show/[email or web address] Current Interpretive Data last revised 2020. Trop I hs pct delta -9 % [facility] Trop I hs interp Equivocal [facility] Blood 10/04/2024 12:0 6 PM QUALITY HEAD 10/04/2024 12:30 PM QUALITY HEAD Geraldine Leary NP LAB BLOOD ORDERABLES Final Result Performing Organization Address [facility]/ZIP Co de Phone Number [facility] Department [place] [address] * Critical Result Callback Chemistry (10/04/2024 9:06 AM QUALITY HEAD) Date Notified [id number] Time Notified 1024 [facility] TestName Lactate [facility] Called/Read Back Arin JACOBS [facility] Credentials RN [facility] Called By NEAL JACOBS [facility] Blood 10/04/2024 9:06 AM QUALITY HEAD 10/04/2024 9:58 AM QUALITY HEAD Geraldine Leary NP LAB BLOOD ORDERABLES Final Result Performing Organization Address [facility] Co de Phone Number [facility] Department [place] [address] * (ABNORMAL) Troponin I high-sensitivity series (baseline, 2hr, 4hr, 6hr) (10/04/2024 9:06 AM QUALITY HEAD) Trop I hs 145(H) <=35 ng/L Comment: Interpretive Data For further hscTnI resources including the diagnostic algorithm and an aid in interpretation, copy and paste this link: [email or web address].testcatalog.org/show/[email or web address] Current Interpretive Data last revised 2020. Blood 10/04/2024 9:06 AM QUALITY HEAD 10/04/2024 9:58 AM QUALITY HEAD Geraldine Leary STRATEGIC PLANNING CONSULTANT LAB BLOOD ORDERABLES Final Result [facility] Department [place] [address] * (ABNORMAL) Lactate (10/04/2024 9:06 AM QUALITY HEAD) [facility] Lactate 4.1(C) 0.7 - 2.0 mmol/L Blood 10/04/2024 9:06 AM QUALITY HEAD 10/04/2024 9:58 AM QUALITY HEAD Geraldine Leary NP LAB BLOOD ORDERABLES Final Result Performing Organization Address [facility] Co de Phone Number [facility] [place] [address] * Influenza A/B, RSV, and COVID-19 PCR Nasopharyngeal (10/04/2024 9:06 AM QUALITY HEAD) [facility] COVID-19 RNA Negative Negative [facility] Influenza A RNA Negative Negative [facility] Influenza B RNA Negative Negative [facility] RSV RNA Negative Negative [facility] Comment: Interpretive data: Testing performed by [facility] ([phone]). This test is performed using the [employer] Xpert Xpress CoV-2/Flu/RSV plus assay. This is a multiplex, real-time reverse transcriptase PCR assay intended for the qualitative detection of nucleic acid from SARS-CoV-2, influenza A, influenza B, and respiratory syncytial virus. This assay has been cleared by the [place] Food and Drug administration. The performance characteristics have been verified by the [facility]. ??Results must be considered in the clinical context, and a negative result does not rule out infection. Interpretive Data last revised 2023 Nasopharyngeal 10/04/2024 9: 06 AM QUALITY HEAD 10/04/2024 10:22 AM QUALITY HEAD Narrative [facility] - 10/04/2024 11:17 AM QUALITY HEAD Is the Patient experiencing symptoms consistent with COVID?->Unknown Geraldine Leary NP LAB MICROBIOLOGY - GE NERAL ORDERABLES Final Result Performing Organization Address [facility]/ZIP Co de Phone Number [facility] Department [place] [address] BJ * eGFR (10/03/2024 10:36 PM QUALITY HEAD) Pathologist [facility] [place] eGFR 61 >=60 mL/min/1. 73 m2 Comment: [...] reviewed 2021. Blood 10/03/2024 10:3 6 PM QUALITY HEAD 10/03/2024 10:52 PM QUALITY HEAD aJmes Robles MD LAB BLOOD ORDERABLES Final Resu lt [facility] Department [place] [address] * (ABNORMAL) Basic metabolic panel (10/03/2024 10:36 PM QUALITY HEAD) [facility] Sodium 142 135 - 145 mmol/L Potassium, pl 4.4 3.3 - 4.9 mmol/L [facility] Chloride 113(H) 97 - 110 mmol/L [facility] CO2 22 22 - 32 mmol/L [facility] Anion gap 7 2 - 15 mmol/L [facility] BUN 17 6 - 25 mg/dL [facility] Creatinine 1.23 0.80 - 1.30 mg/dL [facility] Glucose 162 70 - 199 mg/dL [facility] Comment: Interpretive Data Fasting glucose >/= [...] 2022. Calcium 8.1(L) 8.5 - 10.3 mg/dL [facility] Blood 10/03/2024 10:3 6 PM QUALITY HEAD 10/03/2024 10:52 PM QUALITY HEAD us James Robles MD LAB BLOOD ORDERABLES Final Resu lt [facility] Department [place] [address] * (ABNORMAL) Differential, auto (10/03/2024 8:30 PM QUALITY HEAD) [facility] Neutrophil abs 22.7(H) 1.5 - 6.5 K/cumm Imm gran abs 0.3(H) 0.0 - 0.1 K/cumm [facility] Lymphocyte abs 1.2 0.8 - 3.3 K/cumm [facility] Monocyte abs 2.1(H) 0.2 - 0.8 K/cumm [facility] Eosinophil abs 0.0 0.0 - 0.5 K/cumm [facility] Basophil abs 0.0 0.0 - 0.1 K/cumm [facility] Neutrophil pct 86.2 % [facility] Comment: Consistent with previous result Interpretive Data Percent cell count reference ranges are not reported, since discordance with absolute values may lead to misinterpretation of CBC data. Current Interpretive Data was last revised on 2018. Imm gran pct 1.1 % [facility] Comment: Interpretive Data Percent cell count reference ranges are not reported, since discordance with absolute values may lead to misinterpretation of CBC data. Current Interpretive Data was last revised on 2018. Lymphocyte pct 4.6 % [facility] Comment: Interpretive Data Percent cell count reference ranges are not reported, since discordance with absolute values may lead to misinterpretation of CBC data. Current Interpretive Data was last revised on 2018. Monocyte pct 8.0 % [facility] Comment: Interpretive Data Percent cell count reference ranges are not reported, since discordance with absolute values may lead to misinterpretation of CBC data. Current Interpretive Data was last revised on 2018. Eosinophil pct 0.0 % [facility] Comment: Interpretive Data Percent cell count reference ranges are not reported, since discordance with absolute values may lead to misinterpretation of CBC data. Current Interpretive Data was last revised on 2018. Basophil pct 0.1 % [facility] Comment: Interpretive Data Percent cell count reference ranges are not reported, since discordance with absolute values may lead to misinterpretation of CBC data. Current Interpretive Data was last revised on 2018. Blood 10/03/2024 8:30 PM QUALITY HEAD 10/03/2024 9:05 PM QUALITY HEAD us James Robles MD LAB BLOOD ORDERABLES Final Resu lt [facility] [place] [address] * (ABNORMAL) CBC with auto differential (10/03/2024 8:30 PM QUALITY HEAD) WBC 26.3(H) 3.8 - 9.9 K/cumm Hgb 11.3(L) 13.0 - 17.5 g/dL [facility] Hct 33.7(L) 38.9 - 50.3 % [facility] Plt 302 150 - 400 K/cumm [facility] MPV 10.4 9.1 - 12.3 fL [facility] RBC 3.61(L) 4.30 - 5.80 M/cumm [facility] MCV 93.4 81.3 - 96.4 fL [facility] MCH 31.3 27.1 - 33.3 pg [facility] MCHC 33.5 32.3 - 35.7 g/dL [facility] RDW CV 13.2 11.1 - 14.9 % [facility] RDW SD 45.1 35.7 - 48.1 fL [facility] NRBC abs 0.00 0.00 - 0.01 K/cumm [facility] Blood 10/03/2024 8:30 PM QUALITY HEAD 10/03/2024 9:05 PM QUALITY HEAD us James Robles MD LAB BLOOD ORDERABLES Final Resu lt [facility] [place] [address] * eGFR (10/03/2024 8:25 PM QUALITY HEAD) eGFR 60 >=60 mL/min/1. 73 m2 Comment: [...] last reviewed 2021. Blood 10/03/2024 8:25 PM QUALITY HEAD 10/03/2024 9:05 PM QUALITY HEAD us James Robles MD LAB BLOOD ORDERABLES Final Resu lt [facility] [place] [address] * (ABNORMAL) Basic metabolic panel (10/03/2024 8:25 PM QUALITY HEAD) Sodium 143 135 - 145 mmol/L Potassium, pl 4.1 3.3 - 4.9 mmol/L [facility] Chloride 113(H) 97 - 110 mmol/L [facility] CO2 20(L) 22 - 32 mmol/L [facility] Anion gap 10 2 - 15 mmol/L [facility] BUN 17 6 - 25 mg/dL [facility] Creatinine 1.25 0.80 - 1.30 mg/dL [facility] Glucose 163 70 - 199 mg/dL [facility] Comment: Interpretive Data Fasting glucose >/= [...] 2022. Calcium 8.0(L) 8.5 - 10.3 mg/dL [facility] Blood 10/03/2024 8:25 PM QUALITY HEAD 10/03/2024 9:05 PM QUALITY HEAD James Robles MD LAB BLOOD ORDERABLES Final Resu lt Performing Organization Address City/[facility]/ZIP Co de Phone Number [facility] [place] [address] * ECG 12 lead (10/03/2024 2:19 PM QUALITY HEAD) Ventricular Rate EKG/Min 96 BPM [facility] Atrial Rate 96 BPM [facility] HI-Interval (MSEC) 242 ms [facility] QRS-Interval (MSEC) 110 ms [facility] QT-Interval (MSEC) 364 ms [facility] QTc 459 ms [facility] P [place] 69 degrees [facility] R [place] 76 degrees [facility] T [place] 1 degrees [facility] Diagnosis Sinus rhythm with 1st degree A-V block Nonspecific ST and T wave abnormality Abnormal ECG When compared with ECG of 10-MAY-2008 09:35, HI interval has increased Vent. rate has increased BY ??35 BPM Non-specific change in ST segment in Inferior leads ST now depressed in Anterolateral leads Nonspecific T wave abnormality now evident in Inferior leads QT has lengthened Confirmed by JACOBO CARSON M.D ([id number]) on 10/04/2024 10:42:26 AM [facility] 10/03/2024 2:19 PM QUALITY HEAD 10/04/2024 10:42 AM QUALITY HEAD James Robles MD ECG ORDERABLES Final Result Performing Organization Address [facility]/ZIP Co de Phone Number [facility] * POCT glucose (10/03/2024 2:07 PM QUALITY HEAD) Glucose, POC 128 70 - 199 mg/dL Blood 10/03/2024 2:07 PM QUALITY HEAD 10/03/2024 2:07 PM QUALITY HEAD us James Robles MD LAB POCT ORDERABLES - DEVICE Fi nal Result Performing Organization Address [facility] Co de Phone Number [facility] [place] [address] * (ABNORMAL) eGFR (10/03/2024 4:58 AM QUALITY HEAD) eGFR 57(L) >=60 mL/min/1. 73 m2 Comment: [...] last reviewed 2021. Blood 10/03/2024 4:58 AM QUALITY HEAD 10/03/2024 5:32 AM QUALITY HEAD us James Robles MD LAB BLOOD ORDERABLES Final Resu lt Performing Organization Address City/[facility]/ZIP Co de Phone Number [facility] MA[facility]AR[facility] [place] [address] * (ABNORMAL) Differential, auto (10/03/2024 4:58 AM QUALITY HEAD) Neutrophil abs 28.0(H) 1.5 - 6.5 K/cumm [...] 2018. Imm gran pct 0.6 % [facility] Comment: Interpretive Data Percent cell [...] on 2018. Eosinophil pct 0.0 % [facility] Comment: Interpretive Data Percent cell [...] revised on 2018. Blood 10/03/2024 4:58 AM QUALITY HEAD 10/03/2024 5:32 AM QUALITY HEAD James Robles MD LAB BLOOD ORDERABLES Final Resu lt Performing Organization Address City/[facility]/ZIP Co de Phone Number [facility] [place] [address] * (ABNORMAL) Basic metabolic panel (10/03/2024 4:58 AM QUALITY HEAD) [facility] Sodium 143 135 - 145 mmol/L Potassium, pl 4.7 3.3 - 4.9 mmol/L [facility] Chloride 111(H) 97 - 110 mmol/L [facility] CO2 22 22 - 32 mmol/L [facility] Anion gap 10 2 - 15 mmol/L [facility] BUN 14 6 - 25 mg/dL [facility] Creatinine 1.29 0.80 - 1.30 mg/dL [facility] Glucose 146 70 - 199 mg/dL [facility] Comment: Interpretive Data Fasting glucose >/= [...] 2022. Calcium 8.3(L) 8.5 - 10.3 mg/dL [facility] Blood 10/03/2024 4:58 AM QUALITY HEAD 10/03/2024 5:32 AM QUALITY HEAD James Robles MD LAB BLOOD ORDERABLES Final Resu lt Performing Organization Address [facility]/ZIP Co de Phone Number [facility] [place] [address] * (ABNORMAL) CBC with auto differential (10/03/2024 4:58 AM QUALITY HEAD) WBC 30.5(H) 3.8 - 9.9 K/cumm Hgb 13.0 13.0 - 17.5 g/dL [facility] Hct 38.0(L) 38.9 - 50.3 % [facility] Plt 346 150 - 400 K/cumm [facility] MPV 10.2 9.1 - 12.3 fL [facility] RBC 4.14(L) 4.30 - 5.80 M/cumm [facility] MCV 91.8 81.3 - 96.4 fL [facility] MCH 31.4 27.1 - 33.3 pg [facility] MCHC 34.2 32.3 - 35.7 g/dL [facility] RDW CV 12.9 11.1 - 14.9 % [facility] RDW SD 43.0 35.7 - 48.1 fL [facility] NRBC abs 0.00 0.00 - 0.01 K/cumm [facility] Blood 10/03/2024 4:58 AM QUALITY HEAD 10/03/2024 5:32 AM QUALITY HEAD us James Robles MD LAB BLOOD ORDERABLES Final Resu lt [facility] Department [place] [address] * XR chest 1 view (Portable) (10/02/2024 9:08 PM QUALITY HEAD) Anatomical Region Laterality Modality Body, Chest N/A Computed Radiogr aphy 10/03/2024 8:28 AM QUALITY HEAD Impressions 10/03/2024 4:05 PM QUALITY HEAD No priors available for comparison. Spinal stimulator [...] James MD, PHD Narrative 10/03/2024 4:05 PM QUALITY HEAD EXAMINATION: 1 view chest radiograph Procedure Note [...] Result * (ABNORMAL) eGFR (10/02/2024 4:01 PM QUALITY HEAD) eGFR 57(L) >=60 mL/min/1. 73 m2 Comment: [...] last reviewed 2021. Blood 10/02/2024 4:01 PM QUALITY HEAD 10/02/2024 4:17 PM QUALITY HEAD us James Robles MD LAB BLOOD ORDERABLES Final Resu lt [facility] Department [place] [address] * (ABNORMAL) Differential, auto (10/02/2024 4:01 PM QUALITY HEAD) Neutrophil abs 14.1(H) 1.5 - 6.5 K/cumm Imm gran abs 0.1 0.0 - 0.1 K/cumm [facility] Lymphocyte abs 1.3 0.8 - 3.3 K/cumm [facility] Monocyte abs 0.7 0.2 - 0.8 K/cumm [facility] Eosinophil abs 0.0 0.0 - 0.5 K/cumm [facility] Basophil abs 0.1 0.0 - 0.1 K/cumm [facility] Neutrophil pct 86.5 % [facility] Comment: Interpretive Data Percent cell count reference ranges are not reported, since discordance with absolute values may lead to misinterpretation of CBC data. Current Interpretive Data was last revised on 2018. Imm gran pct 0.7 % [facility] Comment: Interpretive Data Percent cell count reference ranges are not reported, since discordance with absolute values may lead to misinterpretation of CBC data. Current Interpretive Data was last revised on 2018. Lymphocyte pct 8.0 % [facility] Comment: Interpretive Data Percent cell count reference ranges are not reported, since discordance with absolute values may lead to misinterpretation of CBC data. Current Interpretive Data was last revised on 2018. Monocyte pct 4.2 % [facility] Comment: Interpretive Data Percent cell count reference ranges are not reported, since discordance with absolute values may lead to misinterpretation of CBC data. Current Interpretive Data was last revised on 2018. Eosinophil pct 0.2 % [facility] Comment: Interpretive Data Percent cell count reference ranges are not reported, since discordance with absolute values may lead to misinterpretation of CBC data. Current Interpretive Data was last revised on 2018. Basophil pct 0.4 % [facility] Comment: Interpretive Data Percent cell count reference ranges are not reported, since discordance with absolute values may lead to misinterpretation of CBC data. Current Interpretive Data was last revised on 2018. Blood 10/02/2024 4:01 PM QUALITY HEAD 10/02/2024 4:17 PM QUALITY HEAD James Robles MD LAB BLOOD ORDERABLES Final Resu lt Performing Organization Address City/[facility]/ZIP Co de Phone Number [facility] [place] [address] * Protime-INR (10/02/2024 4:01 PM QUALITY HEAD) PT 12.4 9.7 - 13.0 sec INR 1.14 0.90 - 1.20 [facility] Comment: Interpretive data Oral anticoagulant therapeutic ranges: Venous thromboembolism prophylaxis or treatment: 2.0-3.0 CARDIOLOGY Standard range: 2.0-3.0 High-intensity range: 2.5-3.5 Refer to indication-specific guidelines for appropriate target ranges for prosthetic heart valve replacement. Current interpretive data was last revised on 2019. Blood 10/02/2024 4:01 PM QUALITY HEAD 10/02/2024 4:16 PM QUALITY HEAD James Robles MD LAB BLOOD ORDERABLES Final Resu lt [facility] [place] [address] * (ABNORMAL) aPTT (10/02/2024 4:01 PM QUALITY HEAD) [facility] aPTT 27(L) 28 - 38 sec Comment: Interpretive Data Heparin therapeutic range: 66.0 - 100.0 seconds. Range based on correlation with therapeutic heparin activity range of 0.3 - 0.7 Units/mL. Current interpretive data was last revised on 2023. Blood 10/02/2024 4:01 PM QUALITY HEAD 10/02/2024 4:16 PM QUALITY HEAD James Robles MD LAB BLOOD ORDERABLES Final Resu lt Performing Organization Address City/[facility]/ZIP Co de Phone Number [facility] Department [place] [address] * (ABNORMAL) CBC with auto differential (10/02/2024 4:01 PM QUALITY HEAD) [facility] WBC 16.3(H) 3.8 - 9.9 K/cumm Hgb 12.7(L) 13.0 - 17.5 g/dL [facility] Hct 38.7(L) 38.9 - 50.3 % [facility] Plt 255 150 - 400 K/cumm [facility] MPV 9.8 9.1 - 12.3 fL [facility] RBC 4.10(L) 4.30 - 5.80 M/cumm [facility] MCV 94.4 81.3 - 96.4 fL [facility] MCH 31.0 27.1 - 33.3 pg [facility] MCHC 32.8 32.3 - 35.7 g/dL [facility] RDW CV 12.9 11.1 - 14.9 % [facility] RDW SD 44.5 35.7 - 48.1 fL [facility] NRBC abs 0.00 0.00 - 0.01 K/cumm [facility] Blood 10/02/2024 4:01 PM QUALITY HEAD 10/02/2024 4:17 PM QUALITY HEAD James Robles MD LAB BLOOD ORDERABLES Final Resu lt [facility] [place] [address] * Phosphorus (10/02/2024 4:01 PM QUALITY HEAD) [facility] Phosphorus, pl 2.4 2.3 - 4.5 mg/dL Blood 10/02/2024 4:01 PM QUALITY HEAD 10/02/2024 4:17 PM QUALITY HEAD James Robles MD LAB BLOOD ORDERABLES Final Resu lt Performing Organization Address [facility] Co de Phone Number [facility] [place] [address] * Magnesium (10/02/2024 4:01 PM QUALITY HEAD) [facility] Magnesium 1.9 1.4 - 2.5 mg/dL Blood 10/02/2024 4:01 PM QUALITY HEAD 10/02/2024 4:17 PM QUALITY HEAD James Robles MD LAB BLOOD ORDERABLES Final Resu lt Performing Organization Address [facility] Co de Phone Number [facility] Department [place] [address] * (ABNORMAL) Comprehensive metabolic panel (10/02/2024 4:01 PM QUALITY HEAD) [facility] Sodium 141 135 - 145 mmol/L Potassium, pl 4.2 3.3 - 4.9 mmol/L [facility] Chloride 112(H) 97 - 110 mmol/L [facility] CO2 22 22 - 32 mmol/L [facility] Anion gap 7 2 - 15 mmol/L [facility] BUN 16 6 - 25 mg/dL [facility] Creatinine 1.30 0.80 - 1.30 mg/dL [facility] Glucose 118 70 - 199 mg/dL [facility] Comment: Interpretive Data Fasting glucose >/= [...] 2022. Calcium 8.3(L) 8.5 - 10.3 mg/dL [facility] Bilirubin, total 0.2 0.1 - 1.2 mg/dL [facility] Protein, pl 5.5(L) 6.5 - 8.5 g/dL [facility] Albumin 3.4(L) 3.5 - 5.0 g/dL [facility] Alk phos 64 40 - 130 Units/L [facility] ALT 19 7 - 55 Units/L [facility] AST 21 10 - 50 Units/L [facility] Blood 10/02/2024 4:01 PM QUALITY HEAD 10/02/2024 4:17 PM QUALITY HEAD us James Robles MD LAB BLOOD ORDERABLES Final Resu lt [facility] Department [place] [address] * (ABNORMAL) POC Blood Gas and Chemistries, Arterial - (10/02/2024 2:30 PM QUALITY HEAD) pH, Art POC 7.31(L) 7.35 - 7.45 pCO2, Art POC 41 35 - 45 mmHg [facility] pO2, Art POC 264(H) 83 - 108 mmHg [facility] Na, POC 140 135 - 145 mmol/L [facility] K POC 4.0 3.3 - 4.9 mmol/L [facility] Comment: Interpretive Data Not all point of care methods assess for hemolysis. Confirm with instrument and retest K+ if not consistent with clinical signs and symptoms. Current Interpretive Data was last revised on 2024. Cl, POC 111(H) 97 - 110 mmol/L [facility] Ionized Ca, POC 4.86 4.50 - 5.10 mg/dL [facility] Glucose, POC 104 70 - 199 mg/dL [facility] Lactate, POC 1.1 0.7 - 2.2 mmol/L [facility] SO2 (cas) arterial 100(H) 90 - 95 % [facility] Base excess, POC -5.4 mmol/L [facility] Hct, POC 37.0(L) 41.4 - 51.6 % [facility] Total Hb, POC 12.4(L) 13.8 - 17.2 g/dL [facility] Blood 10/02/2024 2:30 PM QUALITY HEAD 10/02/2024 2:30 PM QUALITY HEAD James Robles MD LAB POCT ORDERABLES - DEVICE Fi nal Result Performing Organization Address [facility]/ZIP Co de Phone Number [facility] Department [place] [address] * FL Fluoroscopy < 1 Hour (10/02/2024 2:00 PM QUALITY HEAD) Narrative [facility] - 10/03/2024 5:04 PM QUALITY HEAD The images from this study are not interpreted by Radiology. ??Please refer to the physician's procedure / OR operative note. James Robles MD IMG FLUOROSCOPY PROCEDURES Cammy l Result Performing Organization Address [facility]/ZIP Co de Phone Number [facility] * (ABNORMAL) POC Blood Gas and Chemistries, Arterial - (10/02/2024 10:43 AM QUALITY HEAD) pH, Art POC 7.32(L) 7.35 - 7.45 pCO2, Art POC 41 35 - 45 mmHg [facility] pO2, Art POC 239(H) 83 - 108 mmHg [facility] Na, POC 141 135 - 145 mmol/L [facility] K POC 4.0 3.3 - 4.9 mmol/L [facility] Comment: Interpretive Data Not all point of care methods assess for hemolysis. Confirm with instrument and retest K+ if not consistent with clinical signs and symptoms. Current Interpretive Data was last revised on 2024. Cl, POC 112(H) 97 - 110 mmol/L [facility] Ionized Ca, POC 4.92 4.50 - 5.10 mg/dL [facility] Glucose, POC 97 70 - 199 mg/dL [facility] Lactate, POC 1.0 0.7 - 2.2 mmol/L [facility] SO2 (cas) arterial 100(H) 90 - 95 % [facility] Base excess, POC -4.7 mmol/L [facility] Hct, POC 35.0(L) 41.4 - 51.6 % [facility] Total Hb, POC 11.8(L) 13.8 - 17.2 g/dL [facility] Blood 10/02/2024 10:4 3 AM QUALITY HEAD 10/02/2024 10:43 AM QUALITY HEAD us James Robles MD LAB POCT ORDERABLES - DEVICE Fi nal Result Performing Organization Address [facility]/ZIP Co de Phone Number [facility] [place] [address] * Type and screen (10/02/2024 6:18 AM QUALITY HEAD) Ramu, indirect Negative ABO Rh B Negative [facility] Blood 10/02/2024 6:18 AM QUALITY HEAD 10/02/2024 6:26 AM QUALITY HEAD Narrative [facility] - 10/02/2024 7:28 AM QUALITY HEAD Has the patient had Daratumumab or Isatuximab in the past 6 months?->Unknown us Sully Archer NP LAB BLOOD BANK TEST ORDER TALYA Final Result Performing Organization Address [facility]/ZIP Co de Phone Number [facility] [place] [address] documented in this encounter Visit Diagnoses Diagnosis [...] & Post-op Floor Given 10/14/2024 9:52 AM QUALITY HEAD 1,000 mg Given 10/13/2024 6:47 PM QUALITY HEAD 1,000 mg Given 10/13/2024 1:03 AM QUALITY HEAD 1,000 mg apixaban (ELIQUIS) tablet 5 mg 5 mg, oral, Every 12 hours scheduled, First dose on Wed10/13/24 at 2100, Nurse to discontinue heparin infusion order at first administration of apixaban using 'order condition met' order source, Indications: Venous ThrombosisIndications:Venous Thrombosis Given 10/14/2024 9: 51 AM QUALITY HEAD 5 mg Given 10/13/2024 9:02 PM QUALITY HEAD 5 mg baclofen (LIORESAL) tablet 10 mg 10 mg, oral, 2 times daily, First dose on Wed10/02/24 at 1730, Phase I & Post-op Floor, Indications: Muscle Spasticity of Spinal OriginIndications:Muscle Spasticity of Spinal Origin Given 10/14/2024 9:52 AM QUALITY HEAD 10 mg Given 10/13/2024 9:02 PM QUALITY HEAD 10 mg Given 10/13/2024 9:44 AM QUALITY HEAD 10 mg bisacodyL (DULCOLAX) suppository 10 mg [...] Stool SoftenerIndications:constipation,Stool Softener Given 10/13/2024 9:02 PM QUALITY HEAD 100 mg Given 10/12/2024 8:59 AM QUALITY HEAD 100 mg Given 10/11/2024 8:46 PM QUALITY HEAD [address] (CYMBALTA) extended release capsule 30 mg 30 mg, oral, 2 times daily, First dose on Wed10/02/24 at 2100, Phase I & Post-op Floor, Capsule may be opened and contents mixed with applesauce or apple juice ONLY. Do not crush or chew capsule, Indications: Neuropathic PainIndications:Neuropathic Pain Given 10/14/2024 9:51 AM QUALITY HEAD 30 mg Given 10/13/2024 9:02 PM QUALITY HEAD 30 mg Given 10/13/2024 9:45 AM QUALITY HEAD 30 mg famotidine (PEPCID) tablet 20 mg 20 mg, oral, Every 12 hours scheduled, First dose on Wed10/02/24 at 2100, Phase I & Post-op Floor, If able to swallow tablets., Indications: Prevention of Stress UlcerIndications:Prevention of Stress Ulcer Given 10/14/2024 9:52 AM QUALITY HEAD 20 mg Given 10/13/2024 9:02 PM QUALITY HEAD 20 mg Given 10/13/2024 9:45 AM QUALITY HEAD 20 mg finasteride (PROSCAR) tablet 5 mg 5 mg, oral, Every morning, First dose on Wed10/03/24 at 0900, Do not crush, break, or open., Indications: benign prostatic hyperplasia with lower urinary tract sxIndications:benign prostatic hyperplasia with lower urinary tract sx Given 10/14/2024 9:51 AM QUALITY HEAD 5 mg Given 10/13/2024 9:45 AM QUALITY HEAD 5 mg Given 10/12/2024 8:59 AM QUALITY HEAD 5 mg oxyCODONE (ROXICODONE) tablet 5 mg 5 mg, oral, Every 4 hours PRN, 2nd line for pain, Starting on Wed10/02/24 at 1933, Phase I & Post-op Floor, May repeat in 1 hour if pain is uncontrolled or increasing. Max 2 doses within 1 dosing interval., Indications: PainIndications:Pain Given 10/14/2024 1:41 PM QUALITY HEAD 5 mg Given 10/14/2024 9:52 AM QUALITY HEAD 5 mg Given 10/14/2024 6:16 AM QUALITY HEAD 5 mg polyethylene glycol (MIRALAX) packet 17 g 17 g, oral, Daily, First dose on Wed10/02/24 at 2015, Phase I & Post-op Floor, Hold for diarrhea., Indications: constipationIndications:constipation Given 10/12/2024 8:58 AM QUALITY HEAD 17 g Given 10/11/2024 8:47 AM QUALITY HEAD 17 g Given 10/10/2024 8:00 AM QUALITY HEAD 17 g senna (SENOKOT) tablet 1 tablet 1 tablet, oral, 2 times daily, First dose on Wed10/02/24 at 2100, Phase I & Post-op Floor, If able to swallow tablets. Hold for diarrhea., Indications: constipationIndications:constipation Given 10/13/2024 9:02 PM QUALITY HEAD 1 table t Given 10/12/2024 8:59 AM QUALITY HEAD 1 tablet Given 10/11/2024 8:46 PM QUALITY HEAD 1 tablet sodium chloride 0.9% flush 0.5-20 mL 0.5-20 mL, intra-catheter, As needed, line care, Starting on Wed10/02/24 at 1933, Flush volume based on line type and size. Flush before and after each use. , Indications: FlushingIndications:Flushing Given 10/10/2024 8:06 PM QUALITY HEAD 10 mL sodium chloride 0.9% irrigation As needed, Starting on Wed10/02/24 at 1121, Intra-Op Given 10/02/2024 11:21 AM QUALITY HEAD 1,000 mL tamsulosin (FLOMAX) extended release capsule 0.4 mg 0.4 mg, oral, Daily with dinner, First dose on Wed10/09/24 at 0715, Do not crush, chew, cut, dissolve, open or otherwise manipulate tablet/capsule. Given 10/13/2024 6:47 PM QUALITY HEAD 0.4 mg Given 10/12/2024 5:13 PM QUALITY HEAD 0.4 mg Given 10/11/2024 5:57 PM QUALITY HEAD 0.4 mg thrombin-recombinant 5,000 unit topical solution As needed, Starting on Wed10/02/24 at 0930, Intra-Op Given 10/02/2024 9:30 AM QUALITY HEAD 5,000 Units documented in this encounter Discontinued [...] Recently Administered Medications Times are shown in QUALITY HEAD. Scheduled Medication Order 10/12/2024 10/13/2024 10/14/2024 apixaban [...] Joyce Guillen RN)2106 (Given - Provider: Rita eBverly) 944 (Given - Provider: Fe Brower RN)2101 [...] COVID: Suspected 10/04/2024 10/04/2024 10/04/2024 11:18 AM QUALITY HEAD documented as of this encounter Care Teams Retail Associate Manager Bilingual Relationship Specialty Start Date End Date Sj Benson MD [address] [place] [address] PCP - General Family Medicine 07/05/24 documented as of this encounter
--- OUTSIDE RECORDS SUMMARY | 2024-11-14 20:32 | XMS_ITS | Encounter Summary ---
Author Organization [facility] Facility Care Team Providers Care Project Management Specialist Name Role Phone Unavailable Primary Care Provider Unavailabl e Encounter Details Date Type Department Care Team (Late st Contact Info) Description 06/04/2008 5:50 AM CDT - 06/05/2008 11:26 AM CDT Hospital Encounter [facility] Hanna Nicole MD [address] [place] [address] [address] [place] [id number] Social History Tobacco Use Types Packs/Day Years Used Date Smoking Tobacco: Never Assessed Sex and Gender Information Value Date Recorded Sex Assigned at Not on file 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
--- OUTSIDE RECORDS SUMMARY | 2024-11-14 20:32 | XMS_ITS | Encounter Summary ---
Author Organization 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
--- OUTSIDE RECORDS SUMMARY | 2024-11-14 20:32 | XMS_ITS | Encounter Summary ---
Author Organization [facility] Facility Care Team Providers Care Hand Box Coverer Name Role Phone Unavailable Primary Care Provider Unavailabl e Encounter Details Date Type Department Care Team (Late st Contact Info) Description 06/04/2009 - 06/04/2009 11:59 PM CDT Hospital Encounter 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
--- OUTSIDE RECORDS SUMMARY | 2024-11-14 20:32 | XMS_ITS | Encounter Summary ---
Author Organization [facility] Healthcare Address [address] [place] [address] Care Team Providers Care Health Editor Name Role Phone Sj Benson MD Primary Care Provider [phone] Reason for Referral * MRI/CAT/PET Scan (Routine) - Closed Specialty Diagnoses / Procedures Referred By Hector t Referred To Contact Radiology Diagnoses Thoracic myelopathy Procedures CT Post Myelogram 3 Levels James Robles MD [address] [place] [address] Phone: tel: fax: [address] [phone] Referral ID Status Reason Start Date Expiration Date Visits Re quested Visits Authorized [id number] Closed 07/14/2024 08/13/2025 1 1 Reason for Visit * MRI/CAT/PET Scan (Routine) - Closed Specialty Diagnoses / Procedures Referred By Contac t Referred To Contact Radiology Diagnoses Thoracic myelopathy Procedures CT Post Myelogram 3 Levels James Robles MD [address] [place] [address] Phone: tel: fax: [address] [phone] Referral ID Status Reason Start Date Expiration Date Visits Re quested Visits Authorized [id number] Closed 07/14/2024 08/13/2025 1 1 Encounter Details Date Type Department Care Team (Latest Contact Info) Description 07/21/2024 6:56 AM CDT - 07/21/2024 11:59 PM CDT Hospital Encounter [facility] Radiology [address] [facility] [place] [address] James Robles MD [address] [place] [address] Thoracic myelopathy Discharge Disposition: Discharge to home [...] on file 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 Burroughs (physician president) was present and participated in the procedure. [...] and [address] Burroughs (physician president) was present and participated in the procedure. [...] myelopathy documented in this encounter Care Teams Health Editor Relationship Specialty Start Date End Date Sj Benson MD [address] [facility] [place] [address] PCP - General Family Medicine 07/05/24 documented as of this encounter
--- OUTSIDE RECORDS SUMMARY | 2024-11-14 20:32 | XMS_ITS | Encounter Summary ---
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 REPRESENTATIVE Gender Identity Not on file Sexual [...] Perioperative Nursing Note CPAP Clinic at the [facility] ([facility]) Date: 09/13/24 This assessment was completed with [...] the 09/13/24 encounter (Pre- Admission Testing) with [facility] NURSE PRE ADMISSION TESTING Medication Sig Dispense [...] patient) Information Provided on Healthcare Directives: No Communication/Recording Clerk Needs Communication Needs: Glasses Does caregiver's language differ from patient's?: No Assistive Devices/DME: Eyeglasses, Walker Hearing - Right Ear: Functional Hearing - Left Ear: Functional Discharge Planning Type of Residence: Private residence Living Arrangements: Spouse/significant other Support Systems: Spouse/significant other Patient expects to be discharged to: Private residence EYE SURGEON NO ADDITIONAL COMMENTS/ FOLLOW UP * Pre-Procedure [...] Remove nail coverings, artificial nails and nail grenadian prior to the day of surgery. This is to lower your risk of infection and to allow the day of surgery team to monitor your oxygen levels. You should leave your valuables and any jewelry at home. No metal or piercings are allowed in the operating room. You should bring your insurance card, a photo ID (example: Cost Accounting Manager's License) and a method of payment for [...] Chart. If you are having surgery at [facility], please arrive on the day of surgery [...] patients should read below section: Information on [facility] & the Orthopedic Center: Please view [email or web address] (Patient & Visitor Information) for additional details regarding Advanced Directive forms, AWARE, directions, parking information, lodging, Internet access, dining and more. For MyChart information, to activate account or password recovery, please go to [email or web address] or call [phone] (toll-free: [phone]), Wed- Wednesday 8am-5pm. Information for Suicide Prevention: National Suicide Prevention Lifeline (3-492-063-TALK (8390)) orcall or text 114. Chat resources: 500Friendsline.org. Surgery Times: For patients having surgery @ [facility] or [facility] ([facility]), if your surgeon's office has not notified you of your surgery time by NOON THE BUSINESS DAY BEFORE your surgery, please call [phone] and ask for your surgeon's office Dr. [...] and Planning CPAP Clinic Location: [facility] The night before your surgery: [...] of surgery. * If having surgery at [facility], you may want to bring a credit card if you want to use our Mobile Pharmacy for your discharge medications. Mobile pharmacy is not available at [facility], the [facility], or the [facility]. Instructions For Your Medications: Pre-Surgery Instructions: [...] 09/13/2024 1:35 PM CDT us Sully Archer CROSSING SUPERVISOR LAB BLOOD ORDERABLES Cammy ramos Result [facility] [place] [address] * TYPE AND SCREEN 14 DAY (09/13/2024 11:37 AM CDT) ABO Rh B Negative Ramu, indirect Negative [facility] Blood 09/13/2024 11:3 7 AM CDT [...] BLOOD BANK TEST ORDER TALYA Final Result [facility] [place] [address] documented in this encounter Visit Diagnoses Diagnosis [...] documented as of this encounter Care Teams Scarrer Relationship Specialty Start Date End Date Sj Benson MD [address] [facility] [place] [address] PCP - General Family Medicine 07/05/24 documented as of this encounter
--- OUTSIDE RECORDS SUMMARY | 2024-11-14 20:32 | XMS_ITS | Encounter Summary ---
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
--- OUTSIDE RECORDS SUMMARY | 2024-11-14 20:32 | XMS_ITS | Encounter Summary ---
Author Organization [facility] Healthcare Address [address] [place] [address] Care Team Providers Care Grizzlyman Name Role Phone Sj Benson MD Primary Care Provider Reason for Visit * MRI/CAT/PET Scan (Routine) - Closed Specialty Diagnoses / Procedures Referred By Contac t Referred To Contact Procedures Neuro MR Outside Reference James Robles MD [address] [facility] [address] [place] [address] Phone: tel: fax: Referral ID Status Reason Start Date Expiration Date Visits Re quested Visits Authorized [id number] Closed 07/11/2024 08/10/2025 1 1 Encounter Details Date Type Department Care Team (Latest Contact Info) Description 07/11/2024 6:23 PM CDT - 07/11/2024 11:59 PM CDT Hospital Encounter [facility] ([facility] [address] [place] [address] Discharge Disposition: Discharge to home or [...] on file 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 ??There will be no report generated by a [facility] Radiologist. Narrative RAD_PACS_[facility] - 07/11/2024 6:23 PM CDT EXAMINATION: ??Images For Reference Purposes Only us James Robles MD IMG MRI PROCEDURES Final Result [facility]_PACS[facility] documented in this encounter Visit Diagnoses Not on filedocumented in this encounter Care Teams Grizzlyman Relationship Specialty Start Date End Date Sj Benson MD [address] [facility] [place] [address] PCP - General Family Medicine 07/05/24 documented as of this encounter
--- OUTSIDE RECORDS SUMMARY | 2024-11-14 20:32 | XMS_ITS | Encounter Summary ---
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 73 m2 [...] ORDERABLES Final Resu lt Performing Organization Address [facility] Co de Phone Number [facility] Department [place] [address] * (ABNORMAL) Urinalysis, microscopic only (09/13/2024 11:37 AM CDT) WBC, ur 6-10(A) 0 - 5 /HPF RBC, ur 21-50(A) 0 - 2 /HPF [facility] Epithelial cells, squamous, ur 1-5 0 - 5 /HPF [facility] Mucous, ur Present(A) [facility] Culture Reflex Comment Reflex conditions for urine culture (WBC >10) not met. [facility] Urine, clean voided 09/13/2024 11:37 AM CDT 09/13/2024 1:37 PM CDT James Robles MD LAB URINE ORDERABLES Final Resu lt Performing Organization Address [facility] Co de Phone Number [facility] Department [place] [address] * (ABNORMAL) Differential, auto (09/13/2024 11:37 AM CDT) Neutrophil abs 6.9(H) 1.5 - 6.5 K/cumm Imm gran abs 0.1 0.0 - 0.1 K/cumm [facility] Lymphocyte abs 2.2 0.8 - 3.3 K/cumm [facility] Monocyte abs 1.2(H) 0.2 - 0.8 K/cumm [facility] Eosinophil abs 0.1 0.0 - 0.5 K/cumm [facility] Basophil abs 0.0 0.0 - 0.1 K/cumm [facility] Neutrophil pct 66.1 % [facility] Comment: Interpretive Data Percent cell count reference ranges are not reported, since discordance with absolute values may lead to misinterpretation of CBC data. Current Interpretive Data was last revised on 2018. Imm gran pct 0.5 % [facility] Comment: Interpretive Data Percent cell count reference ranges are not reported, since discordance with absolute values may lead to misinterpretation of CBC data. Current Interpretive Data was last revised on 2018. Lymphocyte pct 20.7 % [facility] Comment: Interpretive Data Percent cell count reference ranges are not reported, since discordance with absolute values may lead to misinterpretation of CBC data. Current Interpretive Data was last revised on 2018. Monocyte pct 11.8 % [facility] Comment: Interpretive Data Percent cell count reference ranges are not reported, since discordance with absolute values may lead to misinterpretation of CBC data. Current Interpretive Data was last revised on 2018. Eosinophil pct 0.5 % [facility] Comment: Interpretive Data Percent cell count reference ranges are not reported, since discordance with absolute values may lead to misinterpretation of CBC data. Current Interpretive Data was last revised on 2018. Basophil pct 0.4 % [facility] Comment: Interpretive Data Percent cell count reference ranges are not reported, since discordance with absolute values may lead to misinterpretation of CBC data. Current Interpretive Data was last revised on 2018. Blood 09/13/2024 11:3 7 AM CDT 09/13/2024 1:36 PM CDT us James Robles MD LAB BLOOD ORDERABLES Final Resu lt [facility] Department [place] [address] * (ABNORMAL) Basic metabolic panel (09/13/2024 11:37 AM CDT) Sodium 144 135 - 145 mmol/L Potassium, pl 3.8 3.3 - 4.9 mmol/L [facility] Chloride 105 97 - 110 mmol/L [facility] CO2 25 22 - 32 mmol/L [facility] Anion gap 14 2 - 15 mmol/L [facility] BUN 16 6 - 25 mg/dL [facility] Creatinine 1.55(H) 0.80 - 1.30 mg/dL [facility] Glucose 67(L) 70 - 199 mg/dL [facility] Comment: Interpretive Data Fasting glucose >/= [...] 9.9 8.5 - 10.3 mg/dL [facility] Blood 09/13/2024 11:3 7 AM CDT 09/13/2024 1:34 PM CDT James Robles MD LAB BLOOD ORDERABLES Final Resu lt [facility] Department [place] [address] * Vitamin D 25 hydroxy (09/13/2024 11:37 AM CDT) Vitamin D 25-OH 30 30 - 80 ng/mL Blood 09/13/2024 11:3 7 AM CDT 09/13/2024 1:34 PM CDT James Robles MD LAB BLOOD ORDERABLES Final Resu lt Performing Organization Address City/[facility]/ZIP Co de Phone Number [facility] [place] [address] * (ABNORMAL) CBC with auto differential (09/13/2024 11:37 AM CDT) WBC 10.4(H) 3.8 - 9.9 K/cumm Hgb 14.0 13.0 - 17.5 g/dL [facility] Hct 42.7 38.9 - 50.3 % [facility] Plt 254 150 - 400 K/cumm [facility] MPV 10.5 9.1 - 12.[address] [facility] RBC 4.47 4.30 - 5.80 M/cumm [facility] MCV 95.5 81.3 - 96.[address] [facility] MCH 31.3 27.1 - 33.[address] [facility] MCHC 32.8 32.3 - 35.7 g/dL [facility] RDW CV 12.7 11.1 - 14.9 % [facility] RDW SD 44.9 35.7 - 48.[address] [facility] NRBC abs 0.00 0.00 - 0.01 K/cumm [facility] Blood 09/13/2024 11:3 7 AM CDT 09/13/2024 1:36 PM CDT James Robles MD LAB BLOOD ORDERABLES Final Resu lt [facility] [place] [address] * Protime-INR (09/13/2024 11:37 AM CDT) PT 11.0 9.7 - 13.0 sec INR 1.02 0.90 - 1.[address] [facility] Comment: Interpretive data Oral anticoagulant therapeutic [...] ORDERABLES Final Resu lt Performing Organization Address [facility] de Phone Number [facility] [place] [address] * aPTT (09/13/2024 11:37 AM CDT) aPTT [...] ORDERABLES Final Resu lt Performing Organization Address [facility] de Phone Number [facility] [place] [address] * (ABNORMAL) Urinalysis reflex to microscopic and culture Urine, clean voided (09/13/2024 11:37 AM CDT) Color, ur Straw Yellow Clarity, ur Clear Clear [facility] Specific gravity, ur 1.016 1.003 - 1.[address] [facility] pH, urine 5.[address] [facility] Comment: Interpretive Data ? Urine pH is affected by diet, medications, systemic acid-base disturbances, and renal tubular function. ??pH may affect urinary stone formation. ??For example, urine pH below 6.0 may help reduce the tendency for calcium phosphate stones and pH greater than 6.0 may reduce the tendency for uric acid stone formation. Source: [facility] Current Interpretive Data was last revised on 2017 Protein, ur ql Trace Negative [facility] Glucose, ur ql Negative Negative [facility] Ketones, ur Negative Negative [facility] Bilirubin, ur Negative Negative [facility] Blood, ur 1+(A) Negative [facility] Urobilinogen, ur <2.0 <2.0 mg/dL [facility] Nitrite, ur Negative Negative [facility] Leukocyte esterase, ur Negative Negative [facility] UA reflex comment Reflex to microscopic UA will be performed. [facility] Urine, clean voided 09/13/2024 11:37 AM CDT 09/13/2024 1:37 PM CDT us James Robles MD LAB MICROBIOLOGY - GENERAL RAYMOND JEFFERY Final Result Performing Organization Address City/[facility]/ZIP Co de Phone Number [facility] Department [place] [address] * TYPE AND SCREEN 14 DAY (09/13/2024 11:37 AM CDT) ABO Rh B Negative Ramu, indirect Negative [facility] Blood 09/13/2024 11:3 7 AM CDT 09/13/2024 1:50 PM CDT Narrative [facility] - 09/13/2024 3:22 PM CDT Has the patient had Daratumumab or Isatuximab in the past 6 months?->Unknown Is this test being ordered in advance for a procedure?->Yes Expected date of procedure:->10/02/24 Has the patient been transfused in the past 3 months?->No us Sully Archer NP LAB BLOOD BANK TEST ORDER TALYA Final Result Performing Organization Address City/[facility]/ZIP Co de Phone Number [facility] [place] [address] * CPAP aPTT algorithm (09/13/2024 11:37 AM CDT) aPTT 30 28 - 38 sec Comment: Interpretive Data Heparin therapeutic range: 66.0 - 100.0 seconds. Range based on correlation with therapeutic heparin activity range of 0.3 - 0.7 Units/mL. Current interpretive data was last revised on 2023. Blood 09/13/2024 11:3 7 AM CDT 09/13/2024 1:35 PM CDT us Sully Archer CHILD AND ADOLESCENT PSYCHOLOGIST LAB BLOOD ORDERABLES Cammy ramos Result [facility] Department [place] [address] documented in this encounter Visit Diagnoses Diagnosis Preoperative testing Unspecified pre-operative examination 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 Care Teams Newscast Producer Relationship Specialty Start Date End Date Sj Benson MD [address] [facility] [place] [address] PCP - General Family Medicine 07/05/24 documented as of this encounter
--- OUTSIDE RECORDS SUMMARY | 2024-11-14 20:32 | XMS_ITS | Encounter Summary ---
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
--- OUTSIDE RECORDS SUMMARY | 2024-11-14 20:32 | XMS_ITS | Encounter Summary ---
Author Organization [facility] Address [address] [facility] [address] [place] [address] Phone Care Team Providers Care Astronaut Mission Specialist Name Role Phone Sj Benson MD Primary Care Provider [phone] Encounter Details Date Type Department Care Team (Late st Contact Info) Description 07/26/[address] 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 Gender Identity Not on file Sexual Orientation [...] sent to specialist: []Yes []NO [x]N/A On [place] Spreadsheet: [x]Yes []NO * Telephone Encounter - [...] Consent/Surgery packet status: []In progress [x]Scanned by lockstitch front maker Notes/Other: * Telephone Encounter - Abbie Selby CMA - 07/28/2024 3:39 PM CDT MA SURGERY SCHEDULING CHECK LIST Visit Type: [] TELEMED [x] IN CLINIC Nurse Education done in Clinic: [] YES [x] NO LOCATION: [x] [facility] Surgery Name: T3-T5 Posterior Spinal Fusion (PSF) [...] [] Order entered []Audiogram [] Order entered ([id number] [facility] 11th floor [address]) [x]N/A [...] on filedocumented in this encounter Care Teams Astronaut Mission Specialist Relationship Specialty Start Date End Date Sj Benson MD [address] [facility] [place] [address] PCP - General Family Medicine 07/05/24 documented as of this encounter
--- OUTSIDE RECORDS SUMMARY | 2024-11-14 20:32 | XMS_ITS | Encounter Summary ---
Author Organization [facility] Healthcare Address [address] [place] [address] Care Team Providers Care Offensive Coordinator Name Role Phone Sj Benson MD Primary Care Provider [phone] Encounter Details Date Type Department Care Team (Late st Contact Info) Description 07/17/2024 Telephone [facility] Neuro Interventional Radiology [address] [place] [address] Yane Kim RN Social History Tobacco Use [...] on file Legal Sex Male 12:23 PM COGNOS Gender Identity Not on file Sexual Orientation Not on file documented as of this encounter Miscellaneous Notes * Telephone Encounter - Yane Kim RN - 07/17/2024 8:48 AM CDT Preprocedure [...] on filedocumented in this encounter Care Teams Offensive Coordinator Relationship Specialty Start Date End Date Sj Benson MD [address] [facility] [address] [place] [address] PCP - General Family Medicine 07/05/24 documented as of this encounter
--- OUTSIDE RECORDS SUMMARY | 2024-11-16 21:26 | XMS_ITS | Encounter Summary ---
Author Organization [facility] Address [address] [place] [address]. [place], [place] [address] [place] [address] Care Team Providers Care Casting Machine Service Operator Name Role Phone Sj Benson MD Primary Care Provider [phone] Reason for Visit * Reason Comments Outside Record (SCAN) Encounter Details Date Type Department Care Team ([facility] Contact Info) Description 11/12/2023 Scan [facility] [place] [address] Scanned, [facility] Outside Record (SCAN) [...] on filedocumented in this encounter Care Teams Casting Machine Service Operator Relationship Specialty Start Date End Date Sj Benson MD PCP - General FAMILY PRACTICE 07/29/21 documented as of this encounter
--- OUTSIDE RECORDS SUMMARY | 2024-11-16 21:26 | XMS_ITS | Encounter Summary ---
Author Organization [facility] Address [address] [place] [address]. [place] [address] [place] [address] Care Team Providers Care Securities Lending Trader Name Role Phone Sj Benson MD Primary Care Provider [phone] Reason for Referral * (Routine) - Canceled Specialty Diagnoses / Procedures Referred By Contac t Referred To Contact Procedures PT eval and treat Courtney Blackmon MD 3 [facility] [address] [place] [address] Phone: tel: fax: Referral ID Status Reason Start Date Expiration Date V isits Requested Visits Authorized [id number] Canceled 08/25/2021 09/25/2022 1 1 Reason for Visit * Auth/Cert Specialty Diagnoses / Procedures Referred By Contac t Referred To Contact Diagnoses M48.061, Z01.818 Procedures LUMBAR LAMINECTOMY L4-5 Referral ID Status Reason Start Date Expiration Date Visits Re quested Visits Authorized [id number] 1 1 Encounter Details Date Type Department Care Team (Latest Contact Info) Description 08/25/2021 6:13 AM CDT - 08/25/2021 3:15 PM CDT Hospital Encounter [facility] [place] [address] Courtney Blackmon MD 3 [facility] [address] [place] [id number] Discharge Disposition: Home or Self Care (Routine [...] through Care Everywhere. * Laminectomy Discharge Instructions (Slovenian) * General Anesthesia Discharge Instructions (Slovenian) * Hydrocodone and Acetaminophen, ADULT (Slovenian) * Docusate, ADULT (Slovenian) documented in this encounter Medications at Time [...] Per phone interview, patient denies having a irrigator overhead or previous cardiac testing with exception of recent preop EKG. Testing in Cardiology and copied. Clearances requested by surgeon per order form, please request copies once received. Addendum 08/06- Patient rescheduled 2/2 positive UA results. Patient had also been referred to cardiology per PCP for surgical clearance 2/2 abnormal EKG. Patient seen irrigator overhead Dr. aSez and obtained clearance, now in Letters. Addendum [...] TESTING. Yes, other than an EKG at [facility] in prep for surgery 07/29/21 AVERAGE BLOOD PRESSURE? Fluctuates, has been told to keep an eye on it. Covid-19 vaccinated in [place]. Will bring card day of surgery. Pt [...] Notified Eliza at Dr Blackmon's office. Contacted [facility], and left voicemail message for Barbara, relaying this information. Will follow up tomorrow. Left message for Barbara at [facility] this morning, to follow up. Received incoming call from Barbara at [facility]. She indicates that pt will be seen by Dr Saez Wednesday at 2pm. Left Message for Eliza at Dr Blackmon's office to relay these developments. Pt rescheduled for surgery due to unfavorable UA results. Pt indicates that he was re-tested today in [place] and Eliza is going to update him [...] (COMPLETED) 2 g, Intravenous, at 200 mL/hr, line dancer to O.R., 1 dose, First dose on [...] - Provider: User Epic) BUpivacaine-EPINEPHrine PF 0.5% -[id number] injection (CANCELED) As needed, Starting on Wed08/25/21 [...] wound) documented in this encounter Care Teams Securities Lending Trader Relationship Specialty Start Date End Date Sj Benson MD PCP - General FAMILY PRACTICE 07/29/21 documented as of this encounter
--- OUTSIDE RECORDS SUMMARY | 2024-11-16 21:26 | XMS_ITS | Encounter Summary ---
Author Organization [facility] Address [address] [place] [address]. [place], [place] [address] [place] [address] Care Team Providers Care Ware Cleaner Name Role Phone Sj Benson MD Primary Care Provider [phone] Encounter Details Date Type Department Care Team [...] on filedocumented in this encounter Care Teams Ware Cleaner Relationship Specialty Start Date End Date Sj Benson MD PCP - General FAMILY PRACTICE 07/29/21 documented as of this encounter
--- OUTSIDE RECORDS SUMMARY | 2024-11-16 21:26 | XMS_ITS | Encounter Summary ---
Author Organization [facility] Address [address] [place] [address]. [place], [place] [address] [place] [address] Care Team Providers Care Construction Flagger Name Role Phone Sj eBnson MD Primary Care Provider [phone] Encounter Details Date Type Department Care Team [...] on filedocumented in this encounter Care Teams Construction Flagger Relationship Specialty Start Date End Date Sj Benson MD PCP - General FAMILY PRACTICE 07/29/21 documented as of this encounter
--- OUTSIDE RECORDS SUMMARY | 2024-11-16 21:26 | XMS_ITS | Clinical Summary ---
Author Organization [facility] Address [address] [place] [address]. [place] [address] [place] [address] Care Team Providers Care Resident Care Manager Name Role Phone Sj Benson MD Primary Care Provider Allergies Active Allergy Reactions Criticality Noted Date [...] 1966 Zoster Vaccines (1 of 2) 1998 Annual Medicare Wellness Visit 2013 Pneumococcal Vaccine: 65+ Years (1 of 1 - PCV) 2013 RSV Immunization or 60+ Years (1 - 1-dose 75+ series) 2023 COVID-19 Vaccine (3 - 2023-2 5 season) [...] this topic Medical Devices Implanted Type Area Industrial Technology Teacher Device Identifier Shelf Expiration Date Model / Serial / Lot Stimulator Lead-12/07/2023 Implanted:Qty: 1 on 12/07/[address]ine Thoracic [employer] 3219 / / Stimulator Implant- 024 Implanted:Qty: 1 on 12/07/[address] [employer] [facility] [facility] [employer] [id number] / / Description:MR CONDITIONAL A T 1.5 T ONLY, NEED REMOTE TO TURN OFF STIMULATION , NORMAL JACKI , MAX 30 MINUTE SCAN TIME IN 60 MINUTE WINDOW Insurance MEDICARE [facility] Care Teams Resident Care Manager Relationship Specialty Start Date End Date Sj Benson MD PCP - General FAMILY PRACTICE 07/29/21
--- OUTSIDE RECORDS SUMMARY | 2024-11-16 21:26 | XMS_ITS | Encounter Summary ---
Author Organization [facility] Address [address] [place] [address]. [place] [address] [place] [address] Care Team Providers Care Senior Energy Analyst Name Role Phone Sj Benson MD Primary Care Provider [phone] Encounter Details Date Type Department Care Team (Late st Contact Info) Description 07/29/2021 Orders Only [facility] Laboratory [place], [place] [id number] Courtney Blacmkon MD 3 [facility] [address] [place], [place] [id number] Social History Tobacco Use Types Packs/Day Years [...] URINE OMER CATH 07/29/2021 1:07 PM CDT [facility] Comment:CORRECTED ON 07/29 A T 1307: PREVIOUSLY REPORTED URINE CLEAN CATCH COLOR (U) YELLOW 07/29/2021 2:02 PM CDT [facility] TRANSPARENCY TURBID 07/29/2021 2:02 PM T [facility] SPECIFIC GRAVITY (U) 1.024 1.001 - 1.030 07/29/2021 2:02 PM T [facility] U PH 6.5 5.0 - 9.0 07/29/2021 2:02 PM T [facility] LEUKOCYTES (U) 500(A) NEGATIVE 07/29/2021 2:02 PM T [facility] NITRITES 2+(A) NEGATIVE 07/29/2021 2:02 PM T [facility] PROTEIN (U) 50(H) <30 MG/DL 07/29/2021 2:02 PM T [facility] URINE GLUCOSE NORMAL NORMAL MG/DL 07/29/2021 2:02 PM T [facility] KETONES MG/DL (U) NEGATIVE NEGATIVE MG/DL 07/29/2021 2:02 PM [facility] UROBILINOGEN NORMAL NORMAL MG/DL 07/29/2021 2:02 PM T [facility] BILIRUBIN (U) NEGATIVE NEGATIVE MG/DL 07/29/2021 2:02 PM T [facility] BLOOD (U) 1+(A) NEGATIVE 07/29/2021 2:02 PM T [facility] MUCUS FEW /LPF 07/29/2021 2:02 PM T [facility] WBC/HPF 62(H) <6 /HPF 07/29/2021 2:02 PM T [facility] RBC/HPF 29(H) <6 /HPF 07/29/2021 2:02 PM T [facility] BACTERIA (U) RARE(A) NONE /HPF 07/29/2021 2:02 PM CDT [facility] SQUAMOUS EPITHELIALS RARE /HPF 07/29/2021 2:02 PM CDT [facility] URINE SPECIMEN OBTAINED BY CLEAN CATCH PROCEDURE / Unknown 07/29/2021 12:45 PM CDT Courtney Blackmon MD URINE ORDERABLES Edited Resu lt - Final Performing Organization Address City/[facility]/ZIP Co de Phone Number [facility] [address] [place] [address], [place] [phone] * PTT, PARTIAL THROMBOPLASTIN TIME (07/29/2021 12:40 PM CDT) PTT 28.4 25.1 - 36.5 SEC 07/29/2021 2:13 PM CDT [facility] 07/29/2021 12:4 0 PM CDT Courtney Blackmon MD LABORATORY Final Result Performing Organization Address [facility] Co de Phone Number [facility] [address] [place] [address], [place] [phone] * (ABNORMAL) PROTIME/INR, VENOUS (07/29/2021 12:40 PM CDT) PROTIME 13.1(H) 10.2 - 12.9 SEC 07/29/2021 2:13 PM CDT [facility] INR 1.1 07/29/2021 2:13 PM CDT [facility] Comment: Recommended INR Therapeutic Goals: ??2.0-3.0 Routine Therapy ??2.5-3.5 Mechanical Prosthetic Valves (High Risk) 07/29/2021 12:4 0 PM CDT us Courtney Blackmon MD LABORATORY Final Result [facility] [address] [place] [address], [place] [phone] * (ABNORMAL) CBC W/DIFF AUTOMATED (07/29/2021 12:40 PM CDT) Pathologist [facility] WBC 7.8 4.5 - 11.0 x10'3/uL 07/29/2021 1:48 PM CDT [facility] RBC 4.36(L) 4.70 - 6.10 x10'6/uL 07/29/2021 1:48 PM CDT [facility] HGB 13.7(L) 14.0 - 18.0 G/DL 07/29/2021 1:48 PM CDT [facility] HCT 40.6(L) 43.0 - 54.0 % 07/29/2021 1:48 PM CDT [facility] MCV 93.1 80.0 - 94.0 FL 07/29/2021 1:48 PM CDT [facility] MCH 31.4(H) 27.0 - 31.0 PG 07/29/2021 1:48 PM CDT [facility] MCHC 33.7 32.0 - 36.0 G/DL 07/29/2021 1:48 PM CDT [facility] RDW 12.0 11.5 - 14.5 % 07/29/2021 1:48 PM CDT [facility] PLT 241 130 - 400 x10'3/uL 07/29/2021 1:48 PM CDT [facility] MPV 10.2 9.3 - 12.2 FL 07/29/2021 1:48 PM CDT [facility] DIFFERENTIAL TYPE AUTOMATED DIFFERENTIAL 07/29/2021 1:48 PM CDT [facility] NEUTROPHILS % 59.5 % 07/29/2021 1:48 PM CDT [facility] LYMPHOCYTES % 25.8 % 07/29/2021 1:48 PM CDT [facility] MONOCYTES % 13.0 % 07/29/2021 1:48 PM CDT [facility] EOSINOPHILS 0.8 % 07/29/2021 1:48 PM CDT [facility] BASOPHILS 0.6 % 07/29/2021 1:48 PM CDT [facility] IMMATURE GRANS % 0.3 % 07/29/20 1:48 PM CDT [facility] ABS. NEUTROPHILS TOTAL 4.65 1.80 - 7.70 x10'3/uL 07/29/2021 1:48 PM CDT [facility] ABS. LYMPHOCYTES 2.02 1.00 - 4.80 x10'3/uL 07/29/2021 1:48 PM CDT [facility] ABS. MONOCYTES 1.02(H) 0.30 - 0.82 x10'3/uL 07/29/2021 1:48 PM CDT [facility] ABS. EOSINOPHILS 0.06 0.04 - 0.54 x10'3/uL 07/29/2021 1:48 PM CDT [facility] ABS. BASOPHILS 0.05 0.01 - 0.08 x10'3/uL 07/29/2021 1:48 PM CDT [facility] ABS. IMMATURE GRANULOCYTES 0.02 0.00 - 0.49 x10'3/uL 07/29/2021 1:48 PM CDT [facility] 07/29/2021 12:4 0 PM CDT us Courtney Blackmon MD LABORATORY Final Result [facility] [address] [place] [address], [place] [phone] * (ABNORMAL) BASIC METABOLIC PANEL (07/29/2021 12:40 PM CDT) [facility] GLUCOSE 89 70 - 99 MG/DL 07/29/2021 2:09 PM CDT [facility] BUN 22(H) 7 - 18 MG/DL 07/29/2021 2:09 PM CDT [facility] CREATININE S/P/B 1.45(H) 0.7 - 1.3 MG/DL 07/29/2021 2:09 PM CDT [facility] SODIUM S/P/B 141 136 - 145 MMOL/L 07/29/2021 2:09 PM CDT [facility] POTASSIUM S/P/B 4.0 3.5 - 5.1 MMOL/L 07/29/2021 2:09 PM CDT [facility] CHLORIDE S/P/B 109(H) 100 - 108 MMOL/L 07/29/2021 2:09 PM CDT [facility] CO2 26.4 21 - 32 MMOL/L 07/29/2021 2:09 PM CDT [facility] CALCIUM S/P/B 9.1 8.5 - 10.1 MG/DL 07/29/2021 2:09 PM CDT [facility] ANION GAP 5.6 5 - 15 MMOL/L 07/29/2021 2:09 PM CDT [facility] BUN CREATININE RATIO 15.2 6 - 26 07/29/2021 2:09 PM CDT [facility] EGFR NON-AFR. AMER. 48(L) >90 ML/MIN/1.7 3 M2 07/29/2021 2:09 PM CDT [facility] EGFR AFR. AMER. 55(L) >90 ML/MIN/1.7 3 M2 07/29/2021 2:09 PM CDT [facility] Comment: NOTE: eGFR is not calculated for patients <18 years of age. This is an estimated GFR (CKD EPI) and should not be used for calculating drug doses. 07/29/2021 12:4 0 PM CDT Courtney Blackmon MD LABORATORY Final Result [facility] [address] [place] [address], documented in this encounter Visit Diagnoses Diagnosis Pre-op testing- Primary Preoperative examination, unspecified documented in this encounter Care Teams Senior Energy Analyst Relationship Specialty Start Date End Date Sj Benson MD PCP - General FAMILY PRACTICE 07/29/21 documented as of this encounter
--- OUTSIDE RECORDS SUMMARY | 2024-11-16 21:26 | XMS_ITS | Patient Health Summary ---
Author Organization [facility] Address [address] [place] [address] Care Team Providers Care Modeling Analyst Name Role Phone Sj Benson Mario Primary Care Provider Unavailab le Note from [facility],non-owned Affiliates and Associated Physician Practices is amultiple site organization consisting of ambulatory clinics and hospital sitesin [place], [place], [place] and [place]. This disclosure is being madepursuant to the Care Everywhere program and may not contain all information available regarding this patient. Last updated 18.[facility] Joota Social History Tobacco Use Types Packs/Day Years [...] Final Diagnosis URINE, VOIDED, THIN PREP, CYTOLOGY (OSC:[id number]; 04/09/2021): - Negative for high grade urothelial carcinoma 04/14/2021 8:56 AM CDT [facility] Microscopic Description and Comment Microscopic examination substantiates the final diagnosis. 04/14/2021 8:56 AM CDT [facility] Clinical History Hematuria 04/14/2021 8:56 AM CDT [facility] Materials Received Prepared slide received from [facility] [place] [facility] [id number]. All material will be returned. 04/14/2021 8:56 AM CDT [facility] Disclaimer The performance characteristics of all immunohistochemical and indirect immunofluorescence stains (if any) cited in this report were determined by the Histopathology Laboratory of [facility]. Some of these tests were developed [...] Case Report Surgical Pathology Report ? Case: [id number] ? Authorizing Provider: ??Preeti Carreon MD ? Collected: ? 04/09/2021 11:33 AM ? Ordering Location: ? [facility] ? Received: ?04/11/2021 11:33 [...] - PATHOLOGY/CYTO LOGY ORDERABLES Performing Organization Address [facility]/State/ZIP Co de Phone Number [facility] [address] [place] [place] [address], [facility] [phone] * DERMATOPATH TECHNICAL REPORT (09/09/2018 12:00 AM CDT) Case Report Dermatopathology Report ? Case: [id number] ? Authorizing Provider: ??Brittany Peña MD ?Collected: ? 09/09/2018 12:00 AM ? Pathologist: ? Tiffany Astorga MD ? Received: ?09/13/2018 06:58 AM ? Specimens: ?? A) - Skin, left neck ? B) - Skin, right knee ? 8 4:09 PM CDT DERMATOPATHOLOGY LABORATORY Clinical History A: ISK vs nevus vs R/O BCC. [place] brown papule. B: VV vs ISK vs SCC/PSO. Verrucous plaque. 4:09 PM T DERMATOPATHOLOGY LABORATORY Gross Description Specimen A: Received is one formalin filled container labeled with the patient's name and designated left neck. The specimen consists of a shave measuring 4x8g7ln. Jar 0. Specimen B: Received is one formalin filled container labeled with the patient's name and designated right knee. The specimen consists of a shave measuring [id number]. Jar 0. [facility]at[facility] performed the technical component only. [...] characteristic determined by the Dermatopathology Laboratory at [facility]. These tests need not be, and therefore are not, approved by the [place] Food and Drug Administration. The tests are used for clinical purposes. 4:09 PM [facility] DERMATOPATHOLOGY [facility]ORATORY Pathology/Cytology TISSUE SPECIMEN FROM SKIN / Unknown 09/09/2018 09/13/2018 6:58 AM CDT Miscellaneous samples (specimen) TISSUE SPECIMEN FROM SKIN / Unknown 09/09/2018 09/13/2018 6:58 AM CDT Brittany Peña MD LAB - PATHOLOGY/CYTO LOGY ORDERABLES DERMATOPATHOLOGY LABORATORY [facility] - Department of Dermatology [facility], 5th Floor Lab [address] [phone] Care Teams Modeling Analyst Relationship Specialty Start Date End Date Sj Benson Update Information PCP - General 06/24/21
--- OUTSIDE RECORDS SUMMARY | 2024-11-16 21:26 | XMS_ITS | Encounter Summary ---
Author Organization [facility] Address [address] [place] [address]. [place] [address] [place] [address] Care Team Providers Care Riverboat Master Name Role Phone Sj Benson MD Primary Care Provider [phone] Encounter Details Date Type Department Care Team (Late st Contact Info) Description 11/18/2023 9:00 AM RN PRODUCTION - 11/18/2023 9:13 AM [facility] Encounter [facility] Diagnostic [place] [address] Courtney Puente MD 3 [facility] [address] [place] [address] Discharge Disposition: Home or Self Care (Routine [...] Comments ECG 12-LEAD Routine 11/18/2023 10:42 AM RN PRODUCTION Back complaints XR CHEST PA+LAT Routine 11/18/2023 10:14 AM RN PRODUCTION Back complaints documented in this encounter Results * ECG 12 lead (11/18/2023 10:42 AM RN PRODUCTION) 11/18/2023 10:4 2 AM RN PRODUCTION Narrative [facility] - 11/18/2023 12:32 PM RN PRODUCTION ?[facility] ? [address] [place] ? Test Date: ?2023-11-18 Pat Name: ? MONTE THUS ? Department: ?? 40 ? Room: ? Gender: ? Male ? Certified Composites Technician: ?? CDNG : ?1950 ? Requested By: COURTNEY PUENTE Order Number: [id number] ? Reading MD: ?? Monica Lu ? Measurements Intervals ?[place] ? Rate: ? 68 ? P: ?48 UT: ? 232 ?QRS: ?74 QRSD: ? 111 ?T: ?96 QT: ? 386 ? QTc: ?412 ? Interpretive Statements SINUS RHYTHM WITH FIRST DEGREE AV BLOCK MODERATE INTRAVENTRICULAR CONDUCTION DELAY NONSPECIFIC T-WAVE ABNORMALITY Compared to ECG 08/04/2021 13:59:08 First degree AV block now present Intraventricular conduction delay now present T-wave abnormality now present PRODUCTION Procedure Note Monica Lu MD - 11/18/2023 [facility] [place] [address] Test Date: 2023-11-18 Pat Name: RYAN DELGADO Department: 40 Room: Gender: Male Certified Composites Technician: YUE : 1950 Requested By: COURTNEY PUENTE Order Number: [id number] Reading MD: Monica Lu Measurements Intervals [place] Rate: 68 P: 48 UT: 232 QRS: 74 QRSD: 111 T: 96 QT: 386 QTc: 412 Interpretive Statements SINUS RHYTHM WITH FIRST DEGREE AV BLOCK MODERATE INTRAVENTRICULAR CONDUCTION DELAY NONSPECIFIC T-WAVE ABNORMALITY Compared to ECG 08/04/2021 13:59:08 First degree AV block now present Intraventricular conduction delay now present T-wave abnormality now present PRODUCTION us Courtney Puente MD ECG ORDERABLES Final Result [facility] * XR CHEST PA+LAT (11/18/2023 10:14 AM RN PRODUCTION) Anatomical Region Laterality Modality Chest Radiographic Sadie ging 11/18/2023 12:2 9 PM RN PRODUCTION Impressions 11/18/2023 12:30 PM RN PRODUCTION IMPRESSION: No acute findings Ordered By: COURTNEY PUENTE Interpreted By: Deepak Moe MD, 11/18/2023 12:29 PM Narrative 11/18/2023 12:30 PM RN PRODUCTION 2 VIEWS OF THE CHEST Clinical history: [...] back documented in this encounter Care Teams Riverboat Master Relationship Specialty Start Date End Date Sj Benson MD PCP - General FAMILY PRACTICE 07/29/21 documented as of this encounter
--- OUTSIDE RECORDS SUMMARY | 2024-11-16 21:26 | XMS_ITS | Encounter Summary ---
Author Organization [facility] Address [address] [place] [address]. [place] [address] [place] [address] Care Team Providers Care Mid Level Clinician Name Role Phone Sj Benson MD Primary Care Provider [phone] Reason for Visit * Reason Comments Abnormal EKG consult Surgical Clearance Encounter Details Date Type Department Care Team (Late st Contact Info) Description 08/04/2021 2:00 PM CDT Office Visit [facility] [address] [place], [place] [id number] Ladarius Avery MD [facility]. [facility] [address] [place], [place] [id number] Abnormal EKG (consult); Surgical Clearance Social History [...] and condiments. Pepper, herbs,spices, vinegar, lemon or hualapai juices are great for seasoning. Sugar, cocoa [...] for help. Where can I learn more? [employer] https://familydoctor.org/nfnu-scz-vmrkzdoz-xtq-l-sjlwpvw-heart/ [employer] https://www.heart.org/en/healthy-living/healthy-eating/eat-smart/nutrition-basic s/rvg-bare-hen-lifestyle-recommendations NHS https://www.nhs.uk/live-well/eat-well/ Last Reviewed Date 2020-02-16 Consumer [...] right for you. Copyright Copyright ?? 2020 [employer]. and its affiliates and/or licensors. All rights [...] seeing Lili Delgado in consultation at the [facility] in [place], [place]. Lili Delgado is a 70-year-old male [...] Gatherings with Friends and Family: ??? Attends Christianity Services: ??? Active Member of Clubs or [...] [facility] - 08/07/2021 12:50 PM CDT ?[facility], O? [facility] ? Test Date: ?2021-08-04 Pat Name: ? MONTE THUS ? Department: ? Room: ? Gender: ? Male ? Transcripter: ?? dms : ?1950 ? Requested By: LADARIUS AVERY Order Number: [id number] ?Reading : ?? Ladarius Avery ? Measurements Intervals ?[place] ? Rate: ? 69 ? P: ?50 GA: ? 193 ?QRS: ?84 QRSD: ? 109 ?T: ?76 QT: ? 384 ? QTc: ?412 ? Interpretive Statements SINUS RHYTHM COMPARED TO PREVIOUS TRACING No significant change Procedure Note Ladarius Avery MD - 08/07/2021 [facility], [facility]? [facility] Test Date: 2021-08-04 Pat Name: LILI DELGADO Department: Room: Gender: Male Transcripter: dong : 1950 Requested By: LADARIUS AVERY Order Number: [id number] Reading MD: Ladarius Avery Measurements Intervals [place] Rate: 69 P: 50 GA: 193 QRS: 84 QRSD: 109 T: 76 [...] hypertension documented in this encounter Care Teams Mid Level Clinician Relationship Specialty Start Date End Date Sj Benson MD PCP - General FAMILY PRACTICE 07/29/21 documented as of this encounter
--- OUTSIDE RECORDS SUMMARY | 2024-11-16 21:26 | XMS_ITS | Encounter Summary ---
Author Organization [facility] Address [address] [place] [address]. [place], [place] [id number] [place] [address] Care Team Providers Care Pilot Safety Inspector Name Role Phone Sj Benson MD Primary Care Provider [phone] Encounter Details Date Type Department Care Team [...] on filedocumented in this encounter Care Teams Pilot Safety Inspector Relationship Specialty Start Date End Date Sj Benson MD PCP - General FAMILY PRACTICE 07/29/21 documented as of this encounter
--- OUTSIDE RECORDS SUMMARY | 2024-11-16 21:26 | XMS_ITS | Encounter Summary ---
Author Organization [facility] Address [address] [place] [address]. [place], [place] [id number] [place] [address] Care Team Providers Care Bobj Developer Name Role Phone Sj Benson MD Primary Care Provider [phone] Reason for Visit * Reason Comments Outside Record (SCAN) Encounter Details Date Type Department Care Team ([facility] Contact Info) Description 06/13/2024 Scan [facility] [place] [address] Scanned, Doc Hospital Outside Record (SCAN) Social [...] on filedocumented in this encounter Care Teams Bobj Developer Relationship Specialty Start Date End Date Sj Benson MD PCP - General FAMILY PRACTICE 07/29/21 documented as of this encounter
--- OUTSIDE RECORDS SUMMARY | 2024-11-16 21:26 | XMS_ITS | Referral Summary ---
Author Organization [facility] Address [address] [place] [address] Care Team Providers Care Mobile Patrol Officer Name Role Phone Sj Benson Primary Care Provider Unavailab le Source Comments [facility],non-owned Affiliates and Associated Physician Practices is amultiple site organization consisting of ambulatory clinics and hospital sitesin [place], [place], [place] and [place]. This disclosure is being madepursuant to the Care Everywhere program and may not contain all information available regarding this patient. Last updated 18.[facility] Social History Tobacco Use Types Packs/Day Years Used Date Smoking Tobacco: Never Assessed Sex and Gender Information Value Date Recorded Sex Assigned at Not on file Gender Identity Not on file Sexual Orientation Not on file Plan of Treatment Not on file Care Teams Mobile Patrol Officer Relationship Specialty Start Date End Date Sj Benson Update Information PCP - General 06/24/21
--- OUTSIDE RECORDS SUMMARY | 2024-11-16 21:26 | XMS_ITS | Encounter Summary ---
Author Organization [facility] Address [address] [place] [address]. [place], [place] [address] [place] [address] Care Team Providers Care Research And Development Engineer Name Role Phone Sj Benson MD Primary Care Provider Reason for Visit * Reason Comments Outside Record (SCAN) Encounter Details Date Type Department Care Team ([facility] Contact Info) Description 11/12/2023 Scan [facility] [place] [address] Scanned, Doc [facility] Outside Record (SCAN) [...] on filedocumented in this encounter Care Teams Research And Development Engineer Relationship Specialty Start Date End Date Sj Benson MD PCP - General FAMILY PRACTICE 07/29/21 documented as of this encounter
--- OUTSIDE RECORDS SUMMARY | 2024-11-16 21:26 | XMS_ITS | Encounter Summary ---
Author Organization [facility] Address [address] [place] [address]. [place] [address] [place] [address] Care Team Providers Care Revenue Agent Name Role Phone Sj Benson MD Primary Care Provider [phone] Reason for Visit * Auth/Cert Specialty Diagnoses / Procedures Referred By Hector sosa Referred To Contact Diagnoses M48.061, Z01.818 Procedures LUMBAR LAMINECTOMY L4-5 Referral ID Status Reason Start Date Expiration Date Visits Re quested Visits Authorized [id number] 1 1 Encounter Details Date Type Department Care Team (Late st Contact Info) Description 08/25/2021 8:49 AM CDT Anesthesia Event [facility] [place] [address] Ortiz Jones MD [address] [facility] [address] [address] Marimar Mancilla FNP 1 [place] [address] Anesthesia Record Procedure Summary Procedure Name Responsible Anesthesiologist Anesthesia Start Time Anesthesia Stop Time LUMBAR LAMINECTOMY L4-5 (Spine Lumbar) Ortiz Jones MD 08/25/21 0849 08/25/21 1106 Events Date Time Event Comment 08/25/2021 0658 0658 AN Anesthesia Prepped 0714 AN EDI COORDINATOR Prepped 0849 An Start Patient ID and [...] By: Capnography, Auscultation, Chest Rise; Placed By: EDI COORDINATOR; Extubation Assessment: Suctioned, Alert, Tolerated well, Patient spontaneously breathing, Able to follow simple commands, Deep breathes w/equal chest movements, Lifts et holds head > 5 seconds, Able to swallow, Atraumatic; Removal Date: 08/25/21; Removal Time: 1055; Removal Person: EDI COORDINATOR; Removal Reason: End of Case 08/25/21 0858 [...] 0956; 1; Distal; Back; Accordion; 10 Fr.; [id number]; [id number]; 04/21/26; Per Order 08/25/21 0956 by Janeth [...] smoker Cardiovascular (+) hypertension, (well controlled)(-) past ID, CAD, angina Neuro/Psych (-) no TIA, no [...] IVPB 2 g, Intravenous, at 200 mL/hr, callisthenics instructor to O.R., 1 dose, First dose on [...] mg documented in this encounter Care Teams Revenue Agent Relationship Specialty Start Date End Date Sj Benson MD PCP - General FAMILY PRACTICE 07/29/21 documented as of this encounter
--- OUTSIDE RECORDS SUMMARY | 2024-11-16 21:26 | XMS_ITS | Encounter Summary ---
Author Organization [facility] Address [address] [place] [address]. [place] [address] [place] [address] Care Team Providers Care Account Manager Sales Representative Name Role Phone Sj Benson MD Primary Care Provider [phone] Encounter Details Date Type Department Care Team (Late st Contact Info) Description 11/18/2023 9:14 AM CHLORINATOR - 11/18/2023 11:59 PM [facility] Hospital Encounter [facility] [place] [address] Courtney Puente MD [address] [facility] [address] [place] [address] Discharge Disposition: Home or Self Care (Routine [...] AUTO W/O MICRO Routine 11/18/2023 10:15 AM CHLORINATOR Lumbar spondylosis CELIAC DISEASE COMP PANEL Routine 11/18/2023 9:36 AM CHLORINATOR Lumbar spondylosis PARTIAL THROMBOPLASTIN TIME,PTT Routine 11/18/2023 9:36 AM CHLORINATOR Lumbar spondylosis PROTHROMBIN TIME, VENOUS Routine 11/18/2023 9:36 AM CHLORINATOR Lumbar spondylosis COMPREHENSIVE METABOLIC PANEL Routine 11/18/2023 9:36 AM CHLORINATOR Lumbar spondylosis CBC W/DIFF AUTOMATED Routine 11/18/2023 9:36 AM CHLORINATOR Lumbar spondylosis documented in this encounter Results * (ABNORMAL) URINALYSIS (11/18/2023 10:15 AM CHLORINATOR) SPECIMEN TYPE URINE CLEAN CATCH 11/18/2023 9:25 AM [facility] COLOR (U) LIGHT YELLOW 11/18/2023 10:59 AM [facility] TRANSPARENCY CLEAR 11/18/2023 10:59 AM [facility] SPECIFIC GRAVITY (U) 1.020 1.001 - 1.030 11/18/2023 10:59 AM [facility] U PH 5.5 5.0 - 9.0 11/18/2023 10:59 AM [facility] LEUKOCYTES (U) 75(A) NEGATIVE 11/18/2023 10:59 AM [facility] NITRITES NEGATIVE NEGATIVE 11/18/2023 10:59 AM [facility] PROTEIN RANDOM (U) NEGATIVE <30 MG/DL 11/18/2023 10:59 AM CHLORINATOR [facility] GLUCOSE (U) NORMAL NORMAL MG/DL 11/18/2023 10:59 AM CHLORINATOR [facility] KETONES MG/DL (U) NEGATIVE NEGATIVE MG/DL 11/18/2023 10:59 AM [facility] UROBILINOGEN NORMAL NORMAL MG/DL 11/18/2023 10:59 AM [facility] BILIRUBIN (U) NEGATIVE NEGATIVE MG/DL 11/18/2023 10:59 AM CHLORINATOR [facility] BLOOD (U) NEGATIVE NEGATIVE 11/18/2023 10:59 AM CHLORINATOR [facility] MUCUS RARE /LPF 11/18/2023 10:59 AM [facility] WBC/HPF 1 <6 /HPF 11/18/2023 10:59 AM CHLORINATOR [facility] RBC/HPF 3 <6 /HPF 11/18/2023 10:59 AM [facility] SQUAMOUS EPITHELIALS RARE /HPF 11/18/2023 10:59 AM CHLORINATOR [facility] URINE SPECIMEN OBTAINED BY CLEAN CATCH PROCEDURE / Unknown 11/18/2023 10:15 AM CHLORINATOR Courtney Puente MD URINE ORDERABLES Final Result [facility] [address] [place] [address], * PTT, PARTIAL THROMBOPLASTIN TIME (11/18/2023 9:36 AM CHLORINATOR) PTT 30.4 25.1 - 36.5 SEC 11/18/2023 11:16 AM CHLORINATOR [facility] 11/18/2023 9:36 AM CHLORINATOR us Courtney Puente MD LABORATORY Final Result Performing Organization Address City/[facility]/ZIP Co de Phone Number [facility] [address] [place] [address], * PROTIME/INR, VENOUS (11/18/2023 9:36 AM CHLORINATOR) PROTIME 10.9 10.2 - 12.9 SEC 11/18/2023 11:16 AM CHLORINATOR [facility] INR 0.9 11/18/2023 11:16 AM CHLORINATOR [facility] Comment: Recommended INR Therapeutic Goals: ??2.0-3.0 Routine Therapy ??2.5-3.5 Mechanical Prosthetic Valves (High Risk) 11/18/2023 9:36 AM CHLORINATOR us Courtney Puente MD LABORATORY Final Result Performing Organization Address [facility] Co de Phone Number [facility] [address] [place] [address], * CELIAC DISEASE PANEL (11/18/2023 9:36 AM CHLORINATOR) INTERPRETATION REPORT 11/22/2023 9:26 AM [employer] ANDRES JOHN Comment: No serological evidence for celiac disease is present. tTG may normalize in individuals with celiac disease who maintain a gluten free diet. If high suspicion of celiac disease, consider HLA DQ2 and DQ8 testing to rule out celiac disease. TISSUE TRANSGLUTAMINASE IGA AB <1.0 <15.0 U/mL 11/22/2023 9:26 AM [facility] ANDRES JOHN Comment: ? Value ?Interpretation ? <15.0 ?Antibody not detected > or = 15.0 ?Antibody detected IGA 101 70 - 320 mg/dL 11/22/2023 9:26 AM CHLORINATOR [employer] ANDRES ALVARO Comment: Test Performed by [employer], [address] [address], [place] M.D., Ph.D., Director of Laboratories , [place] [id number] 11/18/2023 9:36 AM CHLORINATOR Courtney Puente MD LABORATORY Final Result [employer] [facility] [address] [place], [place] , [place] [phone] * (ABNORMAL) COMPREHENSIVE METABOLIC PANEL (11/18/2023 9:36 AM CHLORINATOR) GLUCOSE 97 70 - 99 MG/DL 11/18/2023 11:30 AM CHLORINATOR [facility] BUN 24(H) 7 - 18 MG/DL 11/18/2023 11:30 AM [facility] CREATININE S/P/B 1.51(H) 0.7 - 1.3 MG/DL 11/18/2023 11:30 AM [facility] SODIUM S/P/B 139 136 - 145 MMOL/L 11/18/2023 11:30 AM [facility] POTASSIUM S/P/B 3.9 3.5 - 5.1 MMOL/L 11/18/2023 11:30 AM [facility] CHLORIDE S/P/B 110(H) 100 - 108 MMOL/L 11/18/2023 11:30 AM [facility] CO2 24.5 21 - 32 MMOL/L 11/18/2023 11:30 AM [facility] CALCIUM S/P/B 9.2 8.5 - 10.1 MG/DL 11/18/2023 11:30 AM [facility] BILIRUBIN TOTAL S/P/B 1.1 0.2 - 1.2 MG/DL 11/18/2023 11:30 AM [facility] Comment: THIS ASSAY IS NOT RECOMMENDED FOR PATIENTS UNDERGOING TREATMENT WITH ELTROMBOPAG DUE TO THE POTENTIAL FOR FALSELY ELEVATED RESULTS. TOTAL PROTEIN S/P/B 6.9 6.4 - 8.2 G/DL 11/18/2023 11:30 AM [facility] ALBUMIN S/P/B 3.8 3.4 - 5.0 G/DL 11/18/2023 11:30 AM [facility] AST 14(L) 15 - 37 U/L 11/18/2023 11:30 AM [facility] ALT 25 16 - 60 U/L 11/18/2023 11:30 AM [facility] ALKALINE PHOSPHATASE S/P/B 66 50 - 136 U/L 11/18/2023 11:30 AM [facility] ANION GAP 4.5(L) 5 - 15 MMOL/L 11/18/2023 11:30 AM [facility] BUN CREATININE RATIO 15.9 6 - 26 11/18/2023 11:30 AM [facility] A/G RATIO 1.2 1.0 - 2.0 RATIO 11/18/2023 11:30 AM [facility] GFR ESTIMATE 48(L) >90 ML/MIN/1.7 3 M2 11/18/2023 11:30 AM [facility] Comment: NOTE: eGFR is not calculated for patients <18 years of age. This is an estimated GFR calculation using the new CKD EPI creatinine equation without race and so does not require a correction factor for race. This estimated GFR should not be used for calculating drug doses. 11/18/2023 9:36 AM CHLORINATOR Courtney Puente MD LABORATORY Final Result [facility] [address] [place] [address], [place] [phone] * (ABNORMAL) CBC W/DIFF AUTOMATED (11/18/2023 9:36 AM CHLORINATOR) [facility] WBC 8.6 4.5 - 11.0 x10'3/uL 11/18/2023 10:51 AM CHLORINATOR [facility] RBC 4.72 4.70 - 6.10 x10'6/uL 11/18/2023 10:51 AM [facility] HGB 14.9 14.0 - 18.0 G/DL 11/18/2023 10:51 AM [facility] HCT 44.0 43.0 - 54.0 % 11/18/2023 10:51 AM [facility] MCV 93.2 80.0 - 94.0 FL 11/18/2023 10:51 AM [facility] MCH 31.6(H) 27.0 - 31.0 PG 11/18/2023 10:51 AM [facility] MCHC 33.9 32.0 - 36.0 G/DL 11/18/2023 10:51 AM [facility] RDW 12.3 11.5 - 14.5 % 11/18/2023 10:51 AM [facility] PLT 250 130 - 400 x10'3/uL 11/18/2023 10:51 AM [facility] MPV 10.2 9.3 - 12.2 FL 11/18/2023 10:51 AM [facility] DIFFERENTIAL TYPE AUTOMATED DIFFERENTIAL 11/18/2023 10:51 AM [facility] NEUTROPHILS % 64.6 % 11/18/2023 10:51 AM CHLORINATOR [facility] LYMPHOCYTES % 24.8 % 11/18/2023 10:51 AM CHLORINATOR [facility] MONOCYTES % 8.4 % 11/18/2023 10:51 AM CHLORINATOR [facility] EOSINOPHILS 1.4 % 11/18/2023 10:51 AM CHLORINATOR [facility] BASOPHILS 0.5 % 11/18/2023 10:51 AM CHLORINATOR [facility] IMMATURE GRANS % 0.3 % 11/18/20 10:51 AM CHLORINATOR [facility] ABS. NEUTROPHILS TOTAL 5.55 1.80 - 7.70 x10'3/uL 11/18/2023 10:51 AM [facility] ABS. LYMPHOCYTES 2.13 1.00 - 4.80 x10'3/uL 11/18/2023 10:51 AM CHLORINATOR [facility] ABS. MONOCYTES 0.72 0.30 - 0.82 x10'3/uL 11/18/2023 10:51 AM CHLORINATOR [facility] ABS. EOSINOPHILS 0.12 0.04 - 0.54 x10'3/uL 11/18/2023 10:51 AM CHLORINATOR [facility] ABS. BASOPHILS 0.04 0.01 - 0.08 x10'3/uL 11/18/2023 10:51 AM CHLORINATOR [facility] ABS. IMMATURE GRANULOCYTES 0.03 0.00 - 0.49 x10'3/uL 11/18/2023 10:51 AM [facility] 11/18/2023 9:36 AM CHLORINATOR us Courtney Puente MD LABORATORY Final Result [facility] [address] [place] [address], documented in this encounter Visit Diagnoses Diagnosis Lumbar spondylosis Lumbosacral spondylosis without myelopathy documented in this encounter Care Teams Account Manager Sales Representative Relationship Specialty Start Date End Date Sj Benson MD PCP - General FAMILY PRACTICE 07/29/21 documented as of this encounter
--- OUTSIDE RECORDS SUMMARY | 2024-11-16 21:26 | XMS_ITS | Encounter Summary ---
Author Organization [facility] Address [address] [facility] [place] [address] Care Team Providers Care Will Call Order Clerk Name Role Phone Sj Benson Primary Care Provider Unavailab le Encounter Details Date Type Department Care Team (Late st Contact Info) Description 04/11/2021 Lab Requisition [facility] [address] [place] [address] Preeti Carreon MD [address] [place], [place] [id number] Illness, unspecified Social History Tobacco Use Types [...] Final Diagnosis URINE, VOIDED, THIN PREP, CYTOLOGY (OSC:[id number]; 04/09/2021): - Negative for high grade urothelial carcinoma 04/14/2021 8:56 AM CDT [facility] Microscopic Description and Comment Microscopic examination substantiates the final diagnosis. 04/14/2021 8:56 AM CDT [facility] Clinical History Hematuria 04/14/2021 8:56 AM CDT [facility] Materials Received Prepared slide received from [facility] [id number]. All material will be returned. 04/14/2021 8:56 AM [facility] Disclaimer The performance characteristics of all immunohistochemical and indirect immunofluorescence stains (if any) cited in this report were determined by the Histopathology [facility] of [facility]. Some of these tests were developed [...] the attending (teaching) pathologist. 04/14/2021 8:56 AM [facility] Case Report Surgical Pathology Report ? Case: [id number] ? Authorizing Provider: ??Preeti Carreon MD ? Collected: ? 04/09/2021 11:33 AM ? Ordering Location: ? [facility] ? Received: ?04/11/2021 11:33 AM ? Pathologist: ? Mike Thomas MD ? Specimen: ?Slide Consultation ? 04/14/2021 8:56 AM CDT [facility] Embedded Images 04/14/2021 8:56 AM CDT [facility] Pathology/Cytolo gy SURGICAL PATHOLOGY CONSULTATION AND REPORT ON REFERRED SLIDES PREPARED ELSEWHERE / Unknown 04/09/2021 11:33 AM CDT 04/11/2021 11:33 AM CDT Preeti Carreon MD LAB - PATHOLOGY/CYTO LOGY ORDERABLES Performing Organization Address City/[facility] Co de Phone Number [facility] [address] [phone] documented in this encounter Visit Diagnoses Diagnosis Illness, unspecified documented in this encounter Care Teams Will Call Order Clerk Relationship Specialty Start Date End Date Sj Benson Update Information PCP - General 06/24/21 documented as of this encounter
--- OUTSIDE RECORDS SUMMARY | 2024-11-16 21:26 | XMS_ITS | Encounter Summary ---
Author Organization [facility] Address [address] [place] [address]. [place], [place] [address] [place] [address] Care Team Providers Care Firearms Inspector Name Role Phone Sj Benson MD [...] on filedocumented in this encounter Care Teams Firearms Inspector Relationship Specialty Start Date End Date Sj Benson MD PCP - General FAMILY PRACTICE 07/29/21 documented as of this encounter
--- OUTSIDE RECORDS SUMMARY | 2024-11-16 21:26 | XMS_ITS | Encounter Summary ---
Author Organization [facility] Address [address] [place] [address]. [place] [address] [place] [address] Care Team Providers Care Secondary Set Up Man Name Role Phone Sj Benson MD Primary Care Provider [phone] Encounter Details Date Type Department Care Team (Late st Contact Info) Description 11/18/2023 Orders Only [facility] [place], [place] [address] Courtney Puente MD [address] [facility] [address] [place], [place] [id number] Social History Tobacco Use Types Packs/Day Years [...] Results * (ABNORMAL) URINALYSIS (11/18/2023 10:15 AM [employer]ECTIVE [employer]OMOBI[employer] SECTION) SPECIMEN TYPE URINE CLEAN CATCH 11/18/2023 9:25 AM [employer]ECTIVE AUTOM[employer]BI[employer] SECTION [facility] COLOR (U) LIGHT YELLOW 11/18/2023 10:59 AM [employer]ECTIVE [employer]OM[employer] SECTION [facility] TRANSPARENCY CLEAR 11/18/2023 10:59 AM DETECTIVE [employer]OMOBI[employer] SECTION [facility] SPECIFIC GRAVITY (U) 1.020 1.001 - 1.030 11/18/2023 10:59 AM [facility] U PH 5.5 5.0 - 9.0 11/18/2023 10:59 AM [facility] LEUKOCYTES (U) 75(A) NEGATIVE 11/18/2023 10:59 AM [facility] NITRITES NEGATIVE NEGATIVE 11/18/2023 10:59 AM [facility] PROTEIN RANDOM (U) NEGATIVE <30 MG/DL 11/18/2023 10:59 AM [facility] GLUCOSE (U) NORMAL NORMAL MG/DL 11/18/2023 10:59 AM [facility] KETONES MG/DL (U) NEGATIVE NEGATIVE MG/DL 11/18/2023 10:59 AM [facility] UROBILINOGEN NORMAL NORMAL MG/DL 11/18/2023 10:59 AM [facility] BILIRUBIN (U) NEGATIVE NEGATIVE MG/DL 11/18/2023 10:59 AM [facility] BLOOD (U) NEGATIVE NEGATIVE 11/18/2023 10:59 AM [facility] MUCUS RARE /LPF 11/18/2023 10:59 AM [facility] WBC/HPF 1 <6 /HPF 11/18/2023 10:59 AM [facility] RBC/HPF 3 <6 /HPF 11/18/2023 10:59 AM [facility] SQUAMOUS EPITHELIALS RARE /HPF 11/18/2023 10:59 AM [facility] URINE SPECIMEN OBTAINED BY CLEAN CATCH PROCEDURE / Unknown 11/18/2023 10:15 AM [facility] Courtney Puente MD URINE ORDERABLES Final Result [facility] [address] [place] [address], * PTT, PARTIAL THROMBOPLASTIN TIME (11/18/2023 9:36 AM DETECTIVE AUTOMOBI[employer] SECTION) PTT 30.4 25.1 - 36.5 SEC 11/18/2023 11:16 AM [employer]ECTIVE AUTOMOBILE SECTION [facility] 11/18/2023 9:36 AM DETECTIVE AUTOMOBI[employer] SECTION us Courtney Puente MD LABORATORY Final Result Performing Organization Address [facility] Co de Phone Number [facility] [address] [place] [address], * PROTIME/INR, VENOUS (11/18/2023 9:36 AM DETECTIVE AUTOMOBI[employer] SECTION) PROTIME 10.9 10.2 - 12.9 SEC 11/18/2023 11:16 AM DETECTIVE AUTOMOBILE SECTION [facility] INR 0.9 11/18/2023 11:16 AM DETECTIVE AUTOMOBILE SECTION [facility] Comment: Recommended INR Therapeutic Goals: ??2.0-3.0 Routine Therapy ??2.5-3.5 Mechanical Prosthetic Valves (High Risk) 11/18/2023 9:36 AM [employer]ECTIVE AUTOMOBILE SECTION us Courtney Puente MD LABORATORY Final Result Performing Organization Address City/[facility]/ZIP Co de Phone Number [facility] [address] [place] [address], * CELIAC DISEASE PANEL (11/18/2023 9:36 AM DETECTIVE AUTOMOBILE SECTION) INTERPRETATION REPORT 11/22/2023 9:26 AM DETECTIVE AUTOMOBILE SECTION [employer] ETTA JOHN Comment: No serological evidence for celiac disease is present. tTG may normalize in individuals with celiac disease who maintain a gluten free diet. If high suspicion of celiac disease, consider HLA DQ2 and DQ8 testing to rule out celiac disease. TISSUE TRANSGLUTAMINASE IGA AB <1.0 <15.0 U/mL 11/22/2023 9:26 AM [employer]ECT[employer]OMO[employer] SECTION [employer] ANDRES JOHN Comment: ? Value ?Interpretation ? <15.0 ?Antibody not detected > or = 15.0 ?Antibody detected IGA 101 70 - 320 mg/dL 11/22/2023 9:26 AM [employer] SECTION [facility] ANDRES JOHN Comment: Test Performed by Leticia Naranjo, [employer] [facility], [address] [place] [address] Kingston Alamo M.D., Ph.D., Director of Laboratories , [facility] [id number] 11/18/2023 9:36 AM [employer]ECTIVE [employer]OMO[employer] SECTION us Courtney Puente MD LABORATORY Final Result [facility] [address] , * (ABNORMAL) COMPREHENSIVE METABOLIC PANEL (11/18/2023 9:36 AM DETECTIVE AUTOMOBILE SECTION) GLUCOSE 97 70 - 99 MG/DL 11/18/2023 11:30 AM DETECTIVE AUTOMOBILE SECTION [facility] BUN 24(H) 7 - 18 MG/DL 11/18/2023 11:30 AM [facility] CREATININE S/P/B 1.51(H) 0.7 - 1.3 MG/DL 11/18/2023 11:30 AM [facility] SODIUM S/P/B 139 136 - 145 MMOL/L 11/18/2023 11:30 AM [facility] POTASSIUM S/P/B 3.9 3.5 - 5.1 MMOL/L 11/18/2023 11:30 AM [facility] CHLORIDE S/P/B 110(H) 100 - 108 MMOL/L 11/18/2023 11:30 AM [facility] CO2 24.5 21 - 32 MMOL/L 11/18/2023 11:30 AM [facility] CALCIUM S/P/B 9.2 8.5 - 10.1 MG/DL 11/18/2023 11:30 AM [facility] BILIRUBIN TOTAL S/P/B 1.1 0.2 - 1.2 MG/DL 11/18/2023 11:30 AM [facility] Comment: THIS ASSAY IS NOT RECOMMENDED FOR PATIENTS UNDERGOING TREATMENT WITH ELTROMBOPAG DUE TO THE POTENTIAL FOR FALSELY ELEVATED RESULTS. TOTAL PROTEIN S/P/B 6.9 6.4 - 8.2 G/DL 11/18/2023 11:30 AM [facility] ALBUMIN S/P/B 3.8 3.4 - 5.0 G/DL 11/18/2023 11:30 AM [facility] AST 14(L) 15 - 37 U/L 11/18/2023 11:30 AM [facility] ALT 25 16 - 60 U/L 11/18/2023 11:30 AM [facility] ALKALINE PHOSPHATASE S/P/B 66 50 - 136 U/L 11/18/2023 11:30 AM [facility] ANION GAP 4.5(L) 5 - 15 MMOL/L 11/18/2023 11:30 AM [facility] BUN CREATININE RATIO 15.9 6 - 26 11/18/2023 11:30 AM [facility] A/G RATIO 1.2 1.0 - 2.0 RATIO 11/18/2023 11:30 AM [facility] GFR ESTIMATE 48(L) >90 ML/MIN/1.7 3 M2 11/18/2023 11:30 AM [facility] Comment: NOTE: eGFR is not calculated for patients <18 years of age. This is an estimated GFR calculation using the new CKD EPI creatinine equation without race and so does not require a correction factor for race. This estimated GFR should not be used for calculating drug doses. 11/18/2023 9:36 AM DETECTIVE AUTOMOBILE SECTION us Courtney Puente MD LABORATORY Final Result [facility] [address] [place] [address], [place] [phone] * (ABNORMAL) CBC W/DIFF AUTOMATED (11/18/2023 9:36 AM DETECTIVE AUTOMOBILE SECTION) WBC 8.6 4.5 - 11.0 x10'3/uL 11/18/2023 10:51 AM [facility] RBC 4.72 4.70 - 6.10 x10'6/uL 11/18/2023 10:51 AM [facility] HGB 14.9 14.0 - 18.0 G/DL 11/18/2023 10:51 AM [facility] HCT 44.0 43.0 - 54.0 % 11/18/2023 10:51 AM [facility] MCV 93.2 80.0 - 94.0 FL 11/18/2023 10:51 AM [facility] MCH 31.6(H) 27.0 - 31.0 PG 11/18/2023 10:51 AM [facility] MCHC 33.9 32.0 - 36.0 G/DL 11/18/2023 10:51 AM [facility] RDW 12.3 11.5 - 14.5 % 11/18/2023 10:51 AM [facility] PLT 250 130 - 400 x10'3/uL 11/18/2023 10:51 AM [facility] MPV 10.2 9.3 - 12.2 FL 11/18/2023 10:51 AM [facility] DIFFERENTIAL TYPE AUTOMATED DIFFERENTIAL 11/18/2023 10:51 AM [facility] NEUTROPHILS % 64.6 % 11/18/2023 10:51 AM [facility] LYMPHOCYTES % 24.8 % 11/18/2023 10:51 AM [facility] MONOCYTES % 8.4 % 11/18/2023 10:51 AM [facility] EOSINOPHILS 1.4 % 11/18/2023 10:51 AM [facility] BASOPHILS 0.5 % 11/18/2023 10:51 AM [facility] IMMATURE GRANS % 0.3 % 11/18/20 10:51 AM [facility] ABS. NEUTROPHILS TOTAL 5.55 1.80 - 7.70 x10'3/uL 11/18/2023 10:51 AM [facility] ABS. LYMPHOCYTES 2.13 1.00 - 4.80 x10'3/uL 11/18/2023 10:51 AM [facility] ABS. MONOCYTES 0.72 0.30 - 0.82 x10'3/uL 11/18/2023 10:51 AM [facility] ABS. EOSINOPHILS 0.12 0.04 - 0.54 x10'3/uL 11/18/2023 10:51 AM [facility] ABS. BASOPHILS 0.04 0.01 - 0.08 x10'3/uL 11/18/2023 10:51 AM DETECTIVE AUTOMOBILE SECTION [facility] ABS. IMMATURE GRANULOCYTES 0.03 0.00 - 0.49 x10'3/uL 11/18/2023 10:51 AM DETECTIVE AUTOMOBILE SECTION [facility] 11/18/2023 9:36 AM DETECTIVE AUTOMOBI[employer] SECTION Courtney Puente MD LABORATORY Final Result [facility] [address] [place] [address], documented in this encounter Visit Diagnoses Diagnosis Lumbar spondylosis- Primary Lumbosacral spondylosis without myelopathy documented in this encounter Care Teams Secondary Set Up Man Relationship Specialty Start Date End Date Sj Benson MD PCP - General FAMILY PRACTICE 07/29/21 documented as of this encounter
--- OUTSIDE RECORDS SUMMARY | 2024-11-16 21:26 | XMS_ITS | Encounter Summary ---
Author Organization [facility] Address [address] [place] [address] Care Team Providers Care Prevention Coordinator Name Role Phone Marcelino Sj Mario Primary Care Provider Unavail le Encounter Details Date Type Department Care Team (Late st Contact Info) Description 09/13/2018 Lab Requisition [facility] Care DermPath Lab [address] [facility], [place] [id number] Brittany Peña MD [address] [facility] [address] [place] [address] Social History Tobacco Use Types Packs/Day Years [...] CDT) Case Report Dermatopathology Report ? Case: [id number] ? Authorizing Provider: ??Brittany Peña MD ?Collected: ? 09/09/2018 12:00 AM ? Pathologist: ? Tiffany Astorga MD ? Received: ?09/13/2018 06:58 AM ? Specimens: ?? A) - Skin, left neck ? B) - Skin, right knee ? 4:09 PM [facility] DERMATOP[facility]AT[facility] Clinical History A: ISK vs nevus vs R/O BCC. Severance brown papule. B: VV vs ISK vs SCC/PSO. Verrucous plaque. 4:09 PM [facility] DERMATOPATHOLOGY [facility]AT[facility] Gross Description Specimen A: Received is one formalin filled container labeled with the patient's name and designated left neck. The specimen consists of a shave measuring [id number]. Jar 0. Specimen B: Received is one formalin filled container labeled with the patient's name and designated right knee. The specimen consists of a shave measuring [id number]. Jar 0. [facility] Dermatopathology Laboratory performed the technical component only. 4:09 PM [facility] DERMATOPATH[facility] Embedded Images 4:09 PM [facility]ERMATOPATH[facility] DISCLAIMER An external and internal positive and negative controls are appropriate for the histochemical, immunohistochemical and immunofluorescence stain(s) in this case (if any), except where stated explicitly. The performance characteristics of the stain(s) cited in this report were developed and its performance characteristic determined by the Dermatopathology Laboratory at [facility]. These tests need not be, and therefore are not, approved by the [place] Food and Drug Administration. The tests are used for clinical purposes. 4:09 PM [facility] DERMATOPATHOLOGY [facility] Pathology/Cytology TISSUE SPECIMEN FROM SKIN / Unknown 09/09/2018 09/13/2018 6:58 AM CDT Miscellaneous samples (specimen) TISSUE SPECIMEN FROM SKIN / Unknown 09/09/2018 09/13/2018 6:58 AM CDT Brittany Peña MD LAB - PATHOLOGY/CYTO LOGY ORDERABLES DERMATOPATHOLOGY LABORATORY [facility] - Department of Dermatology [address] [place] [address], 5th Floor Lab [address] [phone] documented in this encounter Visit Diagnoses Not on filedocumented in this encounter Care Teams Prevention Coordinator Relationship Specialty Start Date End Date Sj Benson Update Information PCP - General 06/24/21 documented as of this encounter
--- OUTSIDE RECORDS SUMMARY | 2024-11-16 21:26 | XMS_ITS | Encounter Summary ---
Author Organization [facility] Address [address] [place] [address]. [place], [place] [id number] [place] [address] Care Team Providers Care Residential Carpenter Name Role Phone Sj Benson MD Primary Care Provider [phone] Encounter Details Date Type Department Care Team [...] on filedocumented in this encounter Care Teams Residential Carpenter Relationship Specialty Start Date End Date Sj Benson MD PCP - General FAMILY PRACTICE 07/29/21 documented as of this encounter
--- OUTSIDE RECORDS SUMMARY | 2024-11-16 21:26 | XMS_ITS | Clinical Summary ---
Author Organization [facility] Address [address] [place] [address] Care Team Providers Care Shoe Parts Molder Name Role Phone Sj Benson Primary Care Provider Unavailab le Source Comments [facility],non-owned Affiliates and Associated Physician Practices is amultiple site organization consisting of ambulatory clinics and hospital sitesin [place], [place], [place]. This disclosure is being madepursuant to the Care Everywhere program and may not contain all information available regarding this patient. Last updated 18.[facility] [employer] Social History Tobacco Use Types Packs/Day Years [...] age to complete this topic Care Teams Shoe Parts Molder Relationship Specialty Start Date End Date Sj Benson Update Information PCP - General 06/24/21
--- OUTSIDE RECORDS SUMMARY | 2024-11-16 21:26 | XMS_ITS | Encounter Summary ---
Author Organization [facility] Address [address] [place] [address]. [place] [address] [place] [address] Care Team Providers Care Home Care Companion Name Role Phone Sj Benson MD Primary Care Provider [phone] Encounter Details Date Type Department Care Team (Latest Contact Info) Description 07/29/2021 12:22 PM CDT - 07/29/2021 11:59 PM CDT Hospital Encounter [facility] [place] [address] Courtney Blackmon MD [address] [facility] [address] [place], [place] [address] Discharge Disposition: Home or Self Care (Routine [...] URINE OMER CATH 07/29/2021 1:07 PM CDT [facility] Comment:CORRECTED ON 07/29 A T 1307: PREVIOUSLY REPORTED URINE CLEAN CATCH COLOR (U) YELLOW 07/29/2021 2:02 PM CDT [facility] TRANSPARENCY TURBID 07/29/2021 2:02 PM CDT [facility] SPECIFIC GRAVITY (U) 1.024 1.001 - 1.030 07/29/2021 2:02 PM CDT [facility] U PH 6.5 5.0 - 9.0 07/29/2021 2:02 PM T [facility] LEUKOCYTES (U) 500(A) NEGATIVE 07/29/2021 2:02 PM T [facility] NITRITES 2+(A) NEGATIVE 07/29/2021 2:02 PM T [facility] PROTEIN (U) 50(H) <30 MG/DL 07/29/2021 2:02 PM T [facility] URINE GLUCOSE NORMAL NORMAL MG/DL 07/29/2021 2:02 PM T [facility] KETONES MG/DL (U) NEGATIVE NEGATIVE MG/DL 07/29/2021 2:02 PM T [facility] UROBILINOGEN NORMAL NORMAL MG/DL 07/29/2021 2:02 PM T [facility] BILIRUBIN (U) NEGATIVE NEGATIVE MG/DL 07/29/2021 2:02 PM T [facility] BLOOD (U) 1+(A) NEGATIVE 07/29/2021 2:02 PM T [facility] MUCUS FEW /LPF 07/29/2021 2:02 PM T [facility] WBC/HPF 62(H) <6 /HPF 07/29/2021 2:02 PM CDT [facility] RBC/HPF 29(H) <6 /HPF 07/29/2021 2:02 PM CDT [facility] BACTERIA (U) RARE(A) NONE /HPF 07/29/2021 2:02 PM CDT [facility] SQUAMOUS EPITHELIALS RARE /HPF 07/29/2021 2:02 PM CDT [facility] URINE SPECIMEN OBTAINED BY CLEAN CATCH PROCEDURE / Unknown 07/29/2021 12:45 PM CDT Courtney Blackmon MD URINE ORDERABLES Edited Resu lt - Final Performing Organization Address City/[facility]/ZIP Co de Phone Number [facility] [address] [place] [address], [place] [phone] * PTT, PARTIAL THROMBOPLASTIN TIME (07/29/2021 12:40 PM CDT) PTT 28.4 25.1 - 36.5 SEC 07/29/2021 2:13 PM CDT [facility] 07/29/2021 12:4 0 PM CDT Courtney Blackmon MD LABORATORY Final Result [facility] [address] [place] [address], [place] [phone] * (ABNORMAL) PROTIME/INR, VENOUS (07/29/2021 12:40 PM CDT) PROTIME 13.1(H) 10.2 - 12.9 SEC 07/29/2021 2:13 PM CDT [facility] INR 1.1 07/29/2021 2:13 PM CDT [facility] Comment: Recommended INR Therapeutic Goals: ??2.0-3.0 Routine Therapy ??2.5-3.5 Mechanical Prosthetic Valves (High Risk) 07/29/2021 12:4 0 PM CDT Courtney Blackmon MD LABORATORY Final Result [facility] [address] [place] [address], * (ABNORMAL) CBC W/DIFF AUTOMATED (07/29/2021 12:40 PM CDT) WBC 7.8 4.5 - 11.0 x10'3/uL 07/29/2021 1:48 PM CDT [facility] RBC 4.36(L) 4.70 - 6.10 x10'6/uL 07/29/2021 1:48 PM CDT [facility] HGB 13.7(L) 14.0 - 18.0 G/DL 07/29/2021 1:48 PM CDT [facility] HCT 40.6(L) 43.0 - 54.0 % 07/29/2021 1:48 PM CDT [facility] MCV 93.1 80.0 - 94.0 FL 07/29/2021 1:48 PM CDT [facility] MCH 31.4(H) 27.0 - 31.0 PG 07/29/2021 1:48 PM CDT [facility] MCHC 33.7 32.0 - 36.0 G/DL 07/29/2021 1:48 PM CDT [facility] RDW 12.0 11.5 - 14.5 % 07/29/2021 1:48 PM CDT [facility] PLT 241 130 - 400 x10'3/uL 07/29/2021 1:48 PM CDT [facility] MPV 10.2 9.3 - 12.2 FL 07/29/2021 1:48 PM CDT [facility] DIFFERENTIAL TYPE AUTOMATED DIFFERENTIAL 07/29/2021 1:48 PM CDT [facility] NEUTROPHILS % 59.5 % 07/29/2021 1:48 PM CDT [facility] LYMPHOCYTES % 25.8 % 07/29/2021 1:48 PM CDT [facility] MONOCYTES % 13.0 % 07/29/2021 1:48 PM CDT [facility] EOSINOPHILS 0.8 % 07/29/2021 1:48 PM CDT [facility] BASOPHILS 0.6 % 07/29/2021 1:48 PM CDT [facility] IMMATURE GRANS % 0.3 % 07/29/20 1:48 PM CDT [facility] ABS. NEUTROPHILS TOTAL 4.65 1.80 - 7.70 x10'3/uL 07/29/2021 1:48 PM CDT [facility] ABS. LYMPHOCYTES 2.02 1.00 - 4.80 x10'3/uL 07/29/2021 1:48 PM CDT [facility] ABS. MONOCYTES 1.02(H) 0.30 - 0.82 x10'3/uL 07/29/2021 1:48 PM CDT [facility] ABS. EOSINOPHILS 0.06 0.04 - 0.54 x10'3/uL 07/29/2021 1:48 PM CDT [facility] ABS. BASOPHILS 0.05 0.01 - 0.08 x10'3/uL 07/29/2021 1:48 PM CDT [facility] ABS. IMMATURE GRANULOCYTES 0.02 0.00 - 0.49 x10'3/uL 07/29/2021 1:48 PM CDT [facility] 07/29/2021 12:4 0 PM CDT us Courtney Blackmon MD LABORATORY Final Result [facility] [address] [place] [address], [place] [phone] * (ABNORMAL) BASIC METABOLIC PANEL (07/29/2021 12:40 PM CDT) GLUCOSE 89 70 - 99 MG/DL 07/29/2021 2:09 PM CDT [facility] BUN 22(H) 7 - 18 MG/DL 07/29/2021 2:09 PM CDT [facility] CREATININE S/P/B 1.45(H) 0.7 - 1.3 MG/DL 07/29/2021 2:09 PM CDT [facility] SODIUM S/P/B 141 136 - 145 MMOL/L 07/29/2021 2:09 PM CDT [facility] POTASSIUM S/P/B 4.0 3.5 - 5.1 MMOL/L 07/29/2021 2:09 PM CDT [facility] CHLORIDE S/P/B 109(H) 100 - 108 MMOL/L 07/29/2021 2:09 PM CDT [facility] CO2 26.4 21 - 32 MMOL/L 07/29/2021 2:09 PM CDT [facility] CALCIUM S/P/B 9.1 8.5 - 10.1 MG/DL 07/29/2021 2:09 PM CDT [facility] ANION GAP 5.6 5 - 15 MMOL/L 07/29/2021 2:09 PM CDT [facility] BUN CREATININE RATIO 15.2 6 - 26 07/29/2021 2:09 PM CDT [facility] EGFR NON-AFR. AMER. 48(L) >90 ML/MIN/1.7 3 M2 07/29/2021 2:09 PM CDT [facility] EGFR AFR. AMER. 55(L) >90 ML/MIN/1.7 3 M2 07/29/2021 2:09 PM CDT [facility] Comment: NOTE: eGFR is not calculated for patients <18 years of age. This is an estimated GFR (CKD EPI) and should not be used for calculating drug doses. 07/29/2021 12:4 0 PM CDT us Courtney Blackmon MD LABORATORY Final Result [facility] [address] [place] [address], documented in this encounter Visit Diagnoses Diagnosis Pre-op testing Preoperative examination, unspecified documented in this encounter Care Teams Home Care Companion Relationship Specialty Start Date End Date Sj Benson MD PCP - General FAMILY PRACTICE 07/29/21 documented as of this encounter
--- OUTSIDE RECORDS SUMMARY | 2024-11-16 21:26 | XMS_ITS | Encounter Summary ---
Author Organization [facility] Address [address] [place] [address]. [place] [address] [place] [address] Care Team Providers Care Diet Counselor Name Role Phone Sj Benson MD Primary Care Provider [phone] Encounter Details Date Type Department Care Team (Latest Contact Info) Description 03/27/2022 8:36 AM CDT - 03/27/2022 11:59 PM CDT Hospital Encounter [facility] Diagnostic Imaging [place], [place] [id number] Courtney Blackmon MD [address] [facility] [address] [place], [place] [id number] Discharge Disposition: Home or Self Care (Routine [...] status documented in this encounter Care Teams Diet Counselor Relationship Specialty Start Date End Date Sj Benson MD PCP - General FAMILY PRACTICE 07/29/21 documented as of this encounter
--- OUTSIDE RECORDS SUMMARY | 2024-11-16 21:26 | XMS_ITS | Encounter Summary ---
Author Organization [facility] Address [address] [place] [address]. [place] [address] [place] [address] Care Team Providers Care Granite Cutter Apprentice Name Role Phone Sj Benson MD Primary Care Provider [phone] Reason for Visit * Auth/Cert Specialty Diagnoses / Procedures Referred By Hector sosa Referred To Contact Diagnoses M48.061, Z01.818 Procedures LUMBAR LAMINECTOMY L4-5 Referral ID Status Reason Start Date Expiration Date Visits Re quested Visits Authorized [id number] 1 1 Encounter Details Date Type Department Care Team (Late st Contact Info) Description 08/25/2021 8:30 AM CDT - 08/25/2021 10:45 AM CDT Surgery [facility] OR [address] [place], [place] [id number] Courtney Blackmon MD [address] [facility] [address] [place] [address] LUMBAR LAMINECTOMY L4-5 Surgery Details Date/Time Status [...] Case Notes SCHED BY FAX ON 07/29/21 [facility] PHONE ASSESS Special Needs PRONERNFA documented in [...] through Care Everywhere. * Laminectomy Discharge Instructions (Cypriot) * General Anesthesia Discharge Instructions (Cypriot) * Hydrocodone and Acetaminophen, ADULT (Cypriot) * Docusate, ADULT (Cypriot) documented in this encounter Medications at Time [...] Per phone interview, patient denies having a hoisting engine operator or previous cardiac testing with exception of recent preop EKG. Testing in Cardiology and copied. Clearances requested by surgeon per order form, please request copies once received. Addendum 08/06- Patient rescheduled 2/2 positive UA results. Patient had also been referred to cardiology per PCP for surgical clearance 2/2 abnormal EKG. Patient seen hoisting engine operator Dr. Saez and obtained clearance, now in [...] TESTING. Yes, other than an EKG at [facility] in prep for surgery 07/29/21 AVERAGE BLOOD PRESSURE? Fluctuates, has been told to keep an eye on it. Covid-19 vaccinated in [place]. Will bring card day of surgery. Pt [...] up tomorrow. Left message for Barbara at [facility] this morning, to follow up. Received incoming call from Barbara at [facility]. She indicates that pt will be seen by Dr Saez Wednesday at 2pm. Left Message for Eliza at Dr Blackmon's office to relay these developments. Pt rescheduled for surgery due to unfavorable UA results. Pt indicates that he was re-tested today in [place] and Eliza is going to update him [...] AM CDT 1,000 mg BUpivacaine-EPINEPHrine PF 0.5% -1:250130 injection As needed, Starting on Wed08/25/21 at [...] (COMPLETED) 2 g, Intravenous, at 200 mL/hr, call center manager to O.R., 1 dose, First dose [...] - Provider: User Epic) BUpivacaine-EPINEPHrine PF 0.5% -1:660374 injection (CANCELED) As needed, Starting on Wed08/25/21 [...] wound) documented in this encounter Care Teams Granite Cutter Apprentice Relationship Specialty Start Date End Date Sj Benson MD PCP - General FAMILY PRACTICE 07/29/21 documented as of this encounter
--- OUTSIDE RECORDS SUMMARY | 2024-11-16 21:26 | XMS_ITS | Encounter Summary ---
Author Organization [facility] Address [address] [place] [address]. [place] [address] [place] [address] Care Team Providers Care Production Planner Name Role Phone Sj Benson MD Primary Care Provider [phone] Encounter Details Date Type Department Care Team (Latest Contact Info) Description 07/29/2021 12:15 PM CDT - 07/29/2021 12:21 PM CDT Hospital Encounter [facility] Cardiology EKG [address] [place], [place] [id number] Courtney Norris MD [address] [facility] [address] [place], [place] [id number] Discharge Disposition: Home or Self Care (Routine [...] PM CDT) 07/29/2021 1:39 PM CDT Narrative [facility] - 07/30/2021 11:45 AM CDT ?[facility] ? [address] ? Test Date: ?2021-07-29 Pat Name: ? MONTE THUS ? Department: ? Room: ? Gender: ? Male ? Collaborating Supervising Physician: ?? CDG : ?1950 ? Requested By: COURTNEY NORRIS Order Number: [id number] ? Reading MD: ?? Alcides Perry ? Measurements Intervals ?Douglas ? Rate: ? 59 ? P: ?72 MO: ? 191 ?QRS: ?-5 QRSD: ? 121 ?T: ?-4 QT: ? 409 ? QTc: ?405 ? Interpretive Statements SINUS BRADYCARDIA MODERATE INTRAVENTRICULAR CONDUCTION DELAY NONSPECIFIC ST & T-WAVE ABNORMALITY No previous ECG available for comparison Procedure Note Alcides Perry MD - 07/30/2021 [facility] [address] Test Date: 2021-07-29 Pat Name: RYAN DELGADO Department: Room: Gender: Male Collaborating Supervising Physician: CDG : 1950 Requested By: COURTNEY NORRIS Order Number: [id number] Reading MD: Alcides Perry Measurements Intervals Douglas Rate: 59 P: 72 MO: 191 QRS: -5 QRSD: 121 T: -4 QT: 409 QTc: 405 Interpretive Statements SINUS BRADYCARDIA MODERATE INTRAVENTRICULAR CONDUCTION DELAY NONSPECIFIC ST & T-WAVE ABNORMALITY No previous ECG available for comparison us Courtney Norris MD ECG ORDERABLES Final Result [facility] documented in this encounter Visit Diagnoses Diagnosis Pre-op testing- Primary Preoperative examination, unspecified documented in this encounter Care Teams Production Planner Relationship Specialty Start Date End Date Sj Benson MD PCP - General FAMILY PRACTICE 07/29/21 documented as of this encounter
--- OUTSIDE RECORDS SUMMARY | 2024-11-16 21:26 | XMS_ITS | CONTINUITY OF CARE DOCUMENT ---
Author Name ayush mamtanithin Address Unknown Organization [facility] Office Address [address] [place] [address] [address] [place] [address] Phone [phone] Care Team Providers Care Outlet Manager Name Role Phone Junior STOKES, Jarret Unavailable BLAKE MICHELLE MD Unavailable BLAKE MICHELLE MD Unavailable INSURANCE PROVIDERS Payer name Policy type / Coverage type Douglas red republican ID [facility] [id number] [place] [employer] Medicare [id number]
--- OUTSIDE RECORDS SUMMARY | 2024-11-16 21:26 | XMS_ITS | Encounter Summary ---
Author Organization [facility] Address [address] [place] [address]. [place], [place] [address] [place] [address] Care Team Providers Care Clinical Research Scientist Name Role Phone Sj Benson MD Primary Care Provider [phone] Encounter Details Date Type Department Care Team [...] on filedocumented in this encounter Care Teams Clinical Research Scientist Relationship Specialty Start Date End Date Sj Benson MD PCP - General FAMILY PRACTICE 07/29/21 documented as of this encounter
--- OUTSIDE RECORDS SUMMARY | 2024-11-16 21:28 | XMS_ITS | Encounter Summary ---
Author Organization [facility] Address [address] [place] [address] Care Team Providers Care Environmental Remediation Consultant Name Role Phone Unavailable Primary Care [...]
--- OUTSIDE RECORDS SUMMARY | 2024-11-16 21:28 | XMS_ITS | Encounter Summary ---
Author Organization [facility] Address [address] [place] [address] Care Team Providers Care Panel Edge Sealer Name Role Phone Unavailable Primary Care Provider [...]
--- OUTSIDE RECORDS SUMMARY | 2024-11-16 21:28 | XMS_ITS | Encounter Summary ---
Author Organization [facility] Address [address] [place] [address] Care Team Providers Care Distillery Worker Name Role Phone Unavailable Primary Care [...]
--- OUTSIDE RECORDS SUMMARY | 2024-11-16 21:28 | XMS_ITS | Encounter Summary ---
Author Organization [facility] Address [address] [place] [address] Care Team Providers Care Assistive Technology Trainer Name Role Phone Unavailable Primary Care Provider [...]
--- OUTSIDE RECORDS SUMMARY | 2024-11-16 21:28 | XMS_ITS | Encounter Summary ---
Author Organization [facility] Address [address] [place] [address] Care Team Providers Care Senior Mechanical Development Engineer Name Role Phone Unavailable Primary Care [...]
--- OUTSIDE RECORDS SUMMARY | 2024-11-16 21:28 | XMS_ITS | Encounter Summary ---
Author Organization [facility] Address [address] [place] [address] Care Team Providers Care Curer Acid Drum Name Role Phone Unavailable Primary Care Provider Unavailabl e Reason for Visit * Reason Comments Consult Low back, right hip, left leg burning. Encounter Details Date Type Department Care Team (Late st Contact Info) Description 06/27/2024 1:30 PM CDT Office Visit [facility] Neurosurgery [address] [facility] [address] [facility] [address] [place] [address] Riley Huddleston MD [address] [facility] [address] [place] [address] Thoracic myelopathy (Primary Dx) Social [...] Visit Date: 06/30/24 Attending: Riley [facility]leston [facility] [...] wide based gait. Review of Xrays: MRI Lswillis 06/13 shows evidence of decompression at the [...] will refer him to Dr. Robles at [facility] for evaluation. We will not set up a scheduled followup appointment. His symptoms do not seem to align with his degenerative cervical and lumbar pathology. Return for No f/u. Referral to Dr. Robles at [facility]. for evaluation of recurrent thoracic stenosis.. This [...]
--- OUTSIDE RECORDS SUMMARY | 2024-11-16 21:28 | XMS_ITS | Encounter Summary ---
Author Organization [facility] Address [address] [place] [address] Care Team Providers Care Volleyball Player Name Role Phone Unavailable Primary Care Provider Unavailabl e Encounter Details Date Type Department Care Team (Late st Contact Info) Description 06/27/2024 Orders Only [facility] Neurosurgery S [facility] [address] [facility] [address] [place] [address] Provider, Abstract NO ADDRESS ON [...] Spine Other Abstract Provider MR ORDERABLES * [facility] XR SPINE LUMBAR COMP W BENDING MIN 6 VIEWS (06/11/2023 2:11 PM CDT) Abstract Provider [facility] IMAGING * MRI LUMBAR W WO CONTRAST (06/11/2023 2:04 PM CDT) Anatomical Region Laterality Modality Spine Other Abstract Provider MR ORDERABLES documented in this encounter Visit Diagnoses Not on filedocumented in this encounter
--- OUTSIDE RECORDS SUMMARY | 2024-11-16 21:28 | XMS_ITS | Encounter Summary ---
Author Organization [facility] Address [address] [place] [address] Care Team Providers Care Cake Wringer Name Role Phone Unavailable Primary Care Provider [...]
--- OUTSIDE RECORDS SUMMARY | 2024-11-16 21:28 | XMS_ITS | Clinical Summary ---
Author Organization [facility] Address [address] [facility] [place] [address] Phone Care Team Providers Care Linotype Operator Name Role Phone Unavailable Primary Care [...]
--- OUTSIDE RECORDS SUMMARY | 2024-11-16 21:28 | XMS_ITS | Encounter Summary ---
Author Organization [facility] Address [address] [place] [address] Care Team Providers Care White Kid Buffer Name Role Phone Unavailable Primary Care Provider [...]
--- OUTSIDE RECORDS SUMMARY | 2024-11-16 21:28 | XMS_ITS | Encounter Summary ---
Author Organization [facility] Address [address] [place] [address] Care Team Providers Care Geodetic Advisor Name Role Phone Unavailable Primary Care Provider [...]
--- OUTSIDE RECORDS SUMMARY | 2024-11-16 21:28 | XMS_ITS | Encounter Summary ---
Author Organization [facility] Address [address] [place] [address] Care Team Providers Care Ratchet Setter Name Role Phone Unavailable Primary Care [...]
--- OUTSIDE RECORDS SUMMARY | 2024-11-16 21:28 | XMS_ITS | Encounter Summary ---
Author Organization [facility] Address [address] [place] [address] Care Team Providers Care Processing Rep Name Role Phone Unavailable Primary Care Provider [...]
--- OUTSIDE RECORDS SUMMARY | 2024-11-16 21:28 | XMS_ITS | Encounter Summary ---
Author Organization [facility] Address [address] [place] [address] Care Team Providers Care Reporting Lead Name Role Phone Unavailable Primary Care Provider [...]
--- OUTSIDE RECORDS SUMMARY | 2024-11-16 21:28 | XMS_ITS | Continuity of Care Document ---
Author Organization [facility] Address [address] [place] [address] [address] [place] [address] Phone Care Team Providers Care Front Desk Host Name Role Phone Elton Sprague Unavailable Unavailable Advance Directives Directive Yes / No Effective Date File Name No Information Encounters Encounter Description Practice Location Reason(s) For Visit Diagnoses Date Provider Providers Copied on Encounter [facility], [address] [place] [address] [address], [place], [place], [id number], [place] tel:[phone] [facility] No Information Dec-2 0-200 6 Do[address] Edward. [address] , [address], [place], [address], [place]. tel:[phone] Family History Family Member Type Diagnosis Age At Onset No Information Payers Payer name Insurance type Covered alliance party ID Authoriza tion(s) [place] FEP [id number] Social History Type Description Quantity Date Captured [...]
--- OUTSIDE RECORDS SUMMARY | 2024-11-16 21:29 | XMS_ITS | Encounter Summary ---
Author Organization [facility] Address [address] [place] [address] Care Team Providers Care Crusher Feeder Name Role Phone Sj Benson MD Primary Care Provider Encounter Details Date Type Department Care Team (Latest Contact Info) Description 11/06/2024 11:07 AM GASTROENTEROLOGY NURSE PRACTITIONER - 11/06/2024 11:59 PM GASTROENTEROLOGY NURSE PRACTITIONER Hospital Encounter [facility] Emergency, Room [...] on file Legal Sex Male 12:23 PM GASTROENTEROLOGY NURSE PRACTITIONER Gender Identity Not on file Sexual Orientation [...] on filedocumented in this encounter Care Teams Crusher Feeder Relationship Specialty Start Date End Date Benson, Sj, MD [address] [place] [address] PCP - General Family Medicine 07/05/24 documented as of this encounter
--- OUTSIDE RECORDS SUMMARY | 2024-11-16 21:29 | XMS_ITS | Encounter Summary ---
Author Organization [facility] Healthcare Address [address] [place] [address] Care Team Providers Care Bunch Maker Hand Name Role Phone Sj Benson MD Primary Care Provider [phone] Encounter Details Date Type Department Care Team (Late st Contact Info) Description 10/02/2024 Orders Only [facility] Operating Room [address] [place] [id number] James Robles MD [address] [facility] [address] [place], [place] [id number] Social History Tobacco Use Types Packs/Day Years [...] on file Legal Sex Male 12:23 PM SIZING SPRAYER Gender Identity Not on file Sexual Orientation Not on file documented as of this encounter Plan of Treatment Not on file documented as of this encounter Procedures Procedure Name Priority Date/Time Associated Diagnosis Comments SURGICAL PATHOLOGY Routine 10/02/2024 12 :15 PM SIZING SPRAYER documented in this encounter Results * Surgical pathology (10/02/2024 12:15 PM SIZING SPRAYER) Soft tissue 10/02/2024 12:1 5 PM SIZING SPRAYER 10/02/2024 3:15 PM SIZING SPRAYER Narrative 10/06/2024 2:00 PM SIZING SPRAYER [facility] [place] [address] NEUROPATHOLOGY REPORT FINAL Patient Name:RYAN DELGADOAddress:[address] [place] [address] CTService:NeurosurgeryAccession #:[id number], [place] ??[id number]:[facility] OR POD 5Taken:10/02/2024Gender: MMRN :[id number]:4DOB:1950 (Age: 74)Hospital #:[id number]:10/02/2024atient Type:[facility] InpatientReported:10/06/2024 ? Physician(s): Abelardo Tijerina M.D. DIAGNOSIS: [...] Surgical Pathology report is available electronically in [employer]. The performance characteristics of some immunohistochemical stains, fluorescence in-situ hybridization tests and immunophenotyping by flow cytometry cited in this report (if any) were determined by the Surgical Pathology Department at [facility] as part of an ongoing senior quality assurance analyst program and in compliance with federally [...] determined by the Surgical Pathology Department of [facility]. ??It has not been cleared or approved by the U. S. Food and Drug Administration. James Robles MD LAB PATHOLOGY ORDERABLES Final Result documented in this encounter Visit Diagnoses Not on filedocumented in this encounter Care Teams Bunch Maker Hand Relationship Specialty Start Date End Date Sj Benson MD [address] [place] [address] PCP - General Family Medicine 07/05/24 documented as of this encounter
--- OUTSIDE RECORDS SUMMARY | 2024-11-16 21:29 | XMS_ITS | Referral Summary ---
Author Organization [facility] Address [address] [place] [address] Care Team Providers Care Tax Services Specialist Name Role Phone Sj Benson MD Primary Care Provider [phone] Encounters Date Type Department Care Team Description 11/07/2024 Telephone [facility] Neurosurgery [address] [facility] [facility] [address] 6th [place] [address] [place] [address] James Robles MD 11/06/2024 11:07 AM JAVA SYSTEMS ANALYST - 11/06/2024 11:59 PM JAVA SYSTEMS ANALYST Hospital Encounter [facility] Emergency, Room R Discharge Disposition: Discharge to home or self care 10/02/2024 5:29 AM JAVA SYSTEMS ANALYST - 10/14/2024 2:41 PM JAVA SYSTEMS ANALYST Hospital Encounter [facility] [address] [place] [id number] James Robles MD Thoracic myelopathy Discharge Disposition: Discharge to an IP Rehab facility 10/13/2024 8:10 AM JAVA SYSTEMS ANALYST Ancillary Procedure [facility] Vascular Lab IP [address] [facility] [address] [place] [phone] 10/09/2024 Orders Only [facility] Hematology [address] [facility] Floor 6 [place] [id number] Claudia Ryan NP Hospital discharge follow-up (Primary Dx) 10/09/2024 Telephone [facility] Cardiology [address] 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 10/02/2024 7:29 AM JAVA SYSTEMS ANALYST Anesthesia Event [facility] Operating Room [address] [place] [address] Marimar Carr MD PhD Sully Archer NP 09/13/2024 10:05 AM CDT Lab [facility] [address] [facility] [address] [place] [address] Preoperative testing; Thoracic myelopathy 09/13/2024 10:30 AM CDT Pre-Admission Testing [facility] Pre Anesthesia Testing [address] [place] [address] Preoperative testing (Primary Dx) from Last 3 Months Allergies Active Allergy [...] on file Legal Sex Male 12:23 PM JAVA SYSTEMS ANALYST Gender Identity Not on file Sexual Orientation Not on file Last Filed Vital Signs Vital Sign Reading Time Taken Comments Blood Pressure 109/63 10/14/2024 12:17 PM JAVA SYSTEMS ANALYST Pulse 60 10/14/2024 12:17 PM JAVA SYSTEMS ANALYST Temperature 36.6 ??C (97.9 ??F) 10/14/2024 1 2:17 PM JAVA SYSTEMS ANALYST Respiratory Rate 16 10/14/2024 12:1 7 PM JAVA SYSTEMS ANALYST Oxygen Saturation 97% 10/14/2024 12: 17 PM JAVA SYSTEMS ANALYST Inhaled Oxygen Concentration - - Weight 98.4 kg (216 lb 14.9 oz) 10/12/2024 2:30 PM JAVA SYSTEMS ANALYST Height 182.9 cm (6') 10/03/2024 2:04 PM JAVA SYSTEMS ANALYST Body Mass Index 29.42 10/03/2024 2:04 PM JAVA SYSTEMS ANALYST Plan of Treatment Not on file Procedures Procedure Name Priority Date/Time Associated Diagnosis Comments HEPATIC FUNCTION PANEL Routine 8:12 PM JAVA SYSTEMS ANALYST EGFR Routine 10/13/2024 8:12 PM JAVA SYSTEMS ANALYST PROTIME-INR STAT 10/13/2024 8:12 PM JAVA SYSTEMS ANALYST CBC WITHOUT DIFFERENTIAL Routine 10/13/2024 8:12 PM JAVA SYSTEMS ANALYST BASIC METABOLIC PANEL Routine 10/13/2024 8:12 PM JAVA SYSTEMS ANALYST PEP THERAPY Routine 10/13/2024 12:00 PM JAVA SYSTEMS ANALYST US VEIN DUPLEX LOWER EXTREMITY BILATERAL COMPLETE IP Routine 10/13/2024 9:43 AM JAVA SYSTEMS ANALYST APTT STAT 10/13/2024 6:24 AM JAVA SYSTEMS ANALYST PEP THERAPY Routine 10/13/2024 6:01 AM JAVA SYSTEMS ANALYST EGFR Routine 10/12/2024 9:40 PM JAVA SYSTEMS ANALYST APTT Routine 10/12/2024 9:40 PM JAVA SYSTEMS ANALYST CBC WITHOUT DIFFERENTIAL Routine 10/12/2024 9:40 PM JAVA SYSTEMS ANALYST BASIC METABOLIC PANEL Routine 10/12/2024 9:40 PM JAVA SYSTEMS ANALYST PEP THERAPY Routine 10/12/2024 6:00 PM JAVA SYSTEMS ANALYST PEP THERAPY Routine 10/12/2024 12:00 PM JAVA SYSTEMS ANALYST APTT STAT 10/12/2024 6:21 AM JAVA SYSTEMS ANALYST PEP THERAPY Routine 10/12/2024 6:01 AM JAVA SYSTEMS ANALYST APTT STAT 10/12/2024 12:54 AM JAVA SYSTEMS ANALYST EGFR Routine 10/11/2024 9:52 PM JAVA SYSTEMS ANALYST CBC WITHOUT DIFFERENTIAL Routine 10/11/2024 9:52 PM JAVA SYSTEMS ANALYST BASIC METABOLIC PANEL Routine 10/11/2024 9:52 PM JAVA SYSTEMS ANALYST PEP THERAPY Routine 10/11/2024 6:00 PM JAVA SYSTEMS ANALYST APTT STAT 10/11/2024 5:30 PM JAVA SYSTEMS ANALYST PEP THERAPY Routine 10/11/2024 12:00 PM JAVA SYSTEMS ANALYST PEP THERAPY Routine 10/11/2024 6:01 AM JAVA SYSTEMS ANALYST PEP THERAPY Routine 10/11/2024 12:00 AM JAVA SYSTEMS ANALYST EGFR Routine 10/10/2024 8:04 PM JAVA SYSTEMS ANALYST APTT STAT 10/10/2024 8:04 PM JAVA SYSTEMS ANALYST PROTIME-INR STAT 10/10/2024 8:04 PM JAVA SYSTEMS ANALYST APTT STAT 10/10/2024 8:04 PM JAVA SYSTEMS ANALYST CBC WITHOUT DIFFERENTIAL Routine 10/10/2024 8:04 PM JAVA SYSTEMS ANALYST BASIC METABOLIC PANEL Routine 10/10/2024 8:04 PM JAVA SYSTEMS ANALYST PEP THERAPY Routine 10/10/2024 12:00 PM JAVA SYSTEMS ANALYST CBC WITHOUT DIFFERENTIAL STAT 10/10/2024 11:51 AM JAVA SYSTEMS ANALYST APTT STAT 10/10/2024 11:36 AM JAVA SYSTEMS ANALYST PROTIME-INR STAT 10/10/2024 11:36 AM JAVA SYSTEMS ANALYST PEP THERAPY Routine 10/10/2024 6:01 AM JAVA SYSTEMS ANALYST EGFR Routine 10/10/2024 3:19 AM JAVA SYSTEMS ANALYST CBC WITHOUT DIFFERENTIAL Routine 10/10/2024 3:19 AM JAVA SYSTEMS ANALYST BASIC METABOLIC PANEL Routine 10/10/2024 3:19 AM JAVA SYSTEMS ANALYST PEP THERAPY Routine 10/10/2024 12:00 AM JAVA SYSTEMS ANALYST POCT GLUCOSE DEVICE Routine 10/09/2024 8 :41 PM JAVA SYSTEMS ANALYST PEP THERAPY Routine 10/09/2024 6:00 PM JAVA SYSTEMS ANALYST US VEIN DUPLEX LOWER EXTREMITY BILATERAL COMPLETE ED Urgent/IP Urgent 10/09/2024 10:08 AM JAVA SYSTEMS ANALYST XR CHEST 1 VIEW IP Routine 10/09/2024 7:55 AM JAVA SYSTEMS ANALYST PEP THERAPY Routine 10/09/2024 6:01 AM JAVA SYSTEMS ANALYST PEP THERAPY Routine 10/09/2024 12:00 AM JAVA SYSTEMS ANALYST EGFR Timed 10/08/2024 10:15 PM JAVA SYSTEMS ANALYST PHOSPHORUS Timed 10/08/2024 10:15 PM JAVA SYSTEMS ANALYST MAGNESIUM Timed 10/08/2024 10:15 PM JAVA SYSTEMS ANALYST COMPREHENSIVE METABOLIC PANEL Timed 10/08/2024 10:15 PM JAVA SYSTEMS ANALYST CBC WITHOUT DIFFERENTIAL Routine 10/08/2024 10:15 PM JAVA SYSTEMS ANALYST PEP THERAPY Routine 10/08/2024 6:00 PM JAVA SYSTEMS ANALYST PEP THERAPY Routine 10/08/2024 12:00 PM JAVA SYSTEMS ANALYST TROPONIN I HIGH-SENSITIVITY STAT 10/08/2024 11:36 AM JAVA SYSTEMS ANALYST LACTATE Timed 10/08/2024 8:38 AM JAVA SYSTEMS ANALYST PEP THERAPY Routine 10/08/2024 6:00 AM JAVA SYSTEMS ANALYST EGFR Routine 10/07/2024 10:19 PM JAVA SYSTEMS ANALYST CBC WITHOUT DIFFERENTIAL Routine 10/07/2024 10:19 PM JAVA SYSTEMS ANALYST BASIC METABOLIC PANEL Routine 10/07/2024 10:19 PM JAVA SYSTEMS ANALYST LACTATE, WHOLE BLOOD Timed 10/07/2024 9:09 AM JAVA SYSTEMS ANALYST URINALYSIS, MICROSCOPIC ONLY Routine 10/07/2024 5:37 AM JAVA SYSTEMS ANALYST URINALYSIS AND REFLEX TO MICROSCOPIC AND CULTURE Routine 10/07/2024 5:37 AM JAVA SYSTEMS ANALYST BLOOD CULTURE STAT 10/07/2024 5:37 AM JAVA SYSTEMS ANALYST BLOOD CULTURE STAT 10/07/2024 5:37 AM JAVA SYSTEMS ANALYST XR CHEST 1 VIEW IP Routine 10/07/2024 5:18 AM JAVA SYSTEMS ANALYST PEP THERAPY Routine 10/07/2024 12:00 AM JAVA SYSTEMS ANALYST LACTATE, WHOLE BLOOD Routine 10/06/2024 9:30 PM JAVA SYSTEMS ANALYST EGFR Routine 10/06/2024 9:16 PM JAVA SYSTEMS ANALYST CBC WITHOUT DIFFERENTIAL Routine 10/06/2024 9:16 PM JAVA SYSTEMS ANALYST BASIC METABOLIC PANEL Routine 10/06/2024 9:16 PM JAVA SYSTEMS ANALYST PEP THERAPY Routine 10/06/2024 6:00 PM JAVA SYSTEMS ANALYST PEP THERAPY Routine 10/06/2024 12:00 PM JAVA SYSTEMS ANALYST PEP THERAPY Routine 10/06/2024 6:01 AM JAVA SYSTEMS ANALYST EGFR Routine 10/05/2024 10:43 PM JAVA SYSTEMS ANALYST CBC WITHOUT DIFFERENTIAL Routine 10/05/2024 10:43 PM JAVA SYSTEMS ANALYST LACTATE, WHOLE BLOOD Routine 10/05/2024 10:43 PM JAVA SYSTEMS ANALYST BASIC METABOLIC PANEL Routine 10/05/2024 10:43 PM JAVA SYSTEMS ANALYST PEP THERAPY Routine 10/05/2024 6:12 PM JAVA SYSTEMS ANALYST PEP THERAPY Routine 10/05/2024 6:12 PM JAVA SYSTEMS ANALYST EGFR Routine 10/04/2024 8:49 PM JAVA SYSTEMS ANALYST DIFFERENTIAL AUTO Routine 10/04/2024 8:4 9 PM JAVA SYSTEMS ANALYST LACTATE, WHOLE BLOOD Routine 10/04/2024 8:49 PM JAVA SYSTEMS ANALYST CALCIUM,IONIZED, WHOLE BLOOD Routine 10/04/2024 8:49 PM JAVA SYSTEMS ANALYST TROPONIN I HIGH-SENSITIVITY Routine 10/04/2024 8:49 PM JAVA SYSTEMS ANALYST CBC WITH AUTO DIFFERENTIAL Routine 10/04/2024 8:49 PM JAVA SYSTEMS ANALYST BASIC METABOLIC PANEL Routine 10/04/2024 8:49 PM JAVA SYSTEMS ANALYST URINALYSIS, MICROSCOPIC ONLY STAT 10/04/2024 1:30 PM JAVA SYSTEMS ANALYST URINALYSIS AND REFLEX TO MICROSCOPIC AND CULTURE STAT 10/04/2024 1:30 PM JAVA SYSTEMS ANALYST LACTATE, WHOLE BLOOD STAT 10/04/2024 12:12 PM JAVA SYSTEMS ANALYST TROPONIN I HIGH-SENSITIVITY 2-HOUR Timed 10/04/2024 12:06 PM JAVA SYSTEMS ANALYST CRITICAL RESULT CALLBACK CHEMISTRY STAT 10/04/2024 9:06 AM JAVA SYSTEMS ANALYST TROPONIN I HIGH-SENSITIVITY SERIES (BASELINE, 2HR, 4HR, 6HR) Routine 10/04/2024 9:06 AM JAVA SYSTEMS ANALYST LACTATE STAT 10/04/2024 9:06 AM JAVA SYSTEMS ANALYST INFLUENZA A/B, RSV, AND COVID-19 PCR Routine 10/04/2024 9:06 AM JAVA SYSTEMS ANALYST EGFR Routine 10/03/2024 10:36 PM JAVA SYSTEMS ANALYST BASIC METABOLIC PANEL Routine 10/03/2024 10:36 PM JAVA SYSTEMS ANALYST DIFFERENTIAL AUTO Routine 10/03/2024 8:3 0 PM JAVA SYSTEMS ANALYST CBC WITH AUTO DIFFERENTIAL Routine 10/03/2024 8:30 PM JAVA SYSTEMS ANALYST EGFR STAT 10/03/2024 8:25 PM JAVA SYSTEMS ANALYST BASIC METABOLIC PANEL STAT 10/03/2024 8:25 PM JAVA SYSTEMS ANALYST ECG 12-LEAD Routine 10/03/2024 2:19 PM JAVA SYSTEMS ANALYST POCT GLUCOSE DEVICE Routine 10/03/2024 2 :07 PM JAVA SYSTEMS ANALYST EGFR Routine 10/03/2024 4:58 AM JAVA SYSTEMS ANALYST DIFFERENTIAL AUTO Routine 10/03/2024 4:5 8 AM JAVA SYSTEMS ANALYST BASIC METABOLIC PANEL Routine 10/03/2024 4:58 AM JAVA SYSTEMS ANALYST CBC WITH AUTO DIFFERENTIAL Routine 10/03/2024 4:58 AM JAVA SYSTEMS ANALYST XR CHEST 1 VIEW IP Routine 10/02/2024 9:08 PM JAVA SYSTEMS ANALYST EGFR STAT 10/02/2024 4:01 PM JAVA SYSTEMS ANALYST DIFFERENTIAL AUTO STAT 10/02/2024 4:0 1 PM JAVA SYSTEMS ANALYST PROTIME-INR STAT 10/02/2024 4:01 PM JAVA SYSTEMS ANALYST APTT STAT 10/02/2024 4:01 PM JAVA SYSTEMS ANALYST CBC WITH AUTO DIFFERENTIAL STAT 10/02/2024 4:01 PM JAVA SYSTEMS ANALYST PHOSPHORUS STAT 10/02/2024 4:01 PM JAVA SYSTEMS ANALYST MAGNESIUM STAT 10/02/2024 4:01 PM JAVA SYSTEMS ANALYST COMPREHENSIVE METABOLIC PANEL STAT 10/02/2024 4:01 PM JAVA SYSTEMS ANALYST POC BLOOD GAS AND CHEMISTRIES, ARTERIAL Routine 10/02/2024 2:30 PM JAVA SYSTEMS ANALYST FL FLUOROSCOPY < 1 HOUR IP Routine 10/02/2024 2:00 PM JAVA SYSTEMS ANALYST SURGICAL PATHOLOGY Routine 10/02/2024 12 :15 PM JAVA SYSTEMS ANALYST POC BLOOD GAS AND CHEMISTRIES, ARTERIAL Routine 10/02/2024 10:43 AM JAVA SYSTEMS ANALYST ANESTHESIA ARTERIAL LINE PLACEMENT Routine 10/02/2024 8:32 AM JAVA SYSTEMS ANALYST ANESTHESIA INTUBATION Routine 10/02/2024 8:31 AM JAVA SYSTEMS ANALYST SPINAL CORD MONITORING 7:29 AM JAVA SYSTEMS ANALYST Thoracic myelopathy Case Notes [email or web address] Celine via email add Dr. David HEBERT LAMINECTOMY THORACIC DECOMPRESSION 10/02/2024 7:29 AM JAVA SYSTEMS ANALYST Thoracic myelopathy Case Notes [email or web address] Celine via email add Dr. David HEBERT FUSION SPINAL - POSTERIOR LUMBAR/THORACIC WITH INSTRUMENTATION 10/02/2024 7:29 AM JAVA SYSTEMS ANALYST Thoracic myelopathy Case Notes [email or web address] Celine via email add Dr. Burnette- ANUP TYPE AND SCREEN STAT 10/02/2024 6:18 AM JAVA SYSTEMS ANALYST EGFR Routine 09/13/2024 11:37 AM CDT Thoracic [...] Months Results * eGFR (10/13/2024 8:12 PM JAVA SYSTEMS ANALYST) eGFR 60 >=60 mL/min/1. 73 m2 Comment: [...] last reviewed 2021. Blood 10/13/2024 8:12 PM JAVA SYSTEMS ANALYST 10/13/2024 8:37 PM JAVA SYSTEMS ANALYST James Robles MD LAB BLOOD ORDERABLES Final Resu lt Performing Organization Address [facility] Co de Phone Number [facility] [address] * Protime-INR (10/13/2024 8:12 PM JAVA SYSTEMS ANALYST) PT 11.5 9.7 - 13.0 sec INR 1.06 0.90 - 1.20 [facility] Comment: Interpretive data Oral anticoagulant therapeutic ranges: Venous thromboembolism prophylaxis or treatment: 2.0-3.0 CARDIOLOGY Standard range: 2.0-3.0 High-intensity range: 2.5-3.5 Refer to indication-specific guidelines for appropriate target ranges for prosthetic heart valve replacement. Current interpretive data was last revised on 2019. Blood 10/13/2024 8:12 PM JAVA SYSTEMS ANALYST 10/13/2024 8:32 PM JAVA SYSTEMS ANALYST Narrative [facility] - 10/13/2024 8:38 PM JAVA SYSTEMS ANALYST Baseline prior to apixaban initiation. Meghan Whyte HIDE AND SKIN FLESHING MACHINE OPERATOR LAB BLOOD ORDERABLES Fin al Result Performing Organization Address [facility] Co de Phone Number [facility] [address] * (ABNORMAL) CBC without differential (10/13/2024 8:12 PM JAVA SYSTEMS ANALYST) WBC 17.1(H) 3.8 - 9.9 K/cumm Hgb 12.1(L) 13.0 - 17.5 g/dL [facility] Hct 37.0(L) 38.9 - 50.3 % [facility] Plt 214 150 - 400 K/cumm [facility] MPV 10.1 9.1 - 12.3 fL [facility] RBC 3.76(L) 4.30 - 5.80 M/cumm [facility] MCV 98.4(H) 81.3 - 96.4 fL [facility] MCH 32.2 27.1 - 33.3 pg [facility] MCHC 32.7 32.3 - 35.7 g/dL [facility] RDW CV 14.6 11.1 - 14.9 % [facility] RDW SD 52.2(H) 35.7 - 48.1 fL [facility] NRBC abs 0.00 0.00 - 0.01 K/cumm [facility] Blood 10/13/2024 8:12 PM JAVA SYSTEMS ANALYST 10/13/2024 8:26 PM JAVA SYSTEMS ANALYST Maria Isabel Unger NP LAB BLOOD ORDERABLES Final Result [facility] [place] [address] * (ABNORMAL) Hepatic function panel (10/13/2024 8:12 PM JAVA SYSTEMS ANALYST) Bilirubin, total 0.2 0.1 - 1.2 mg/dL Bilirubin, direct <0.2 0.1 - 0.3 mg/dL [facility] Protein, pl 5.8(L) 6.5 - 8.5 g/dL [facility] Albumin 3.4(L) 3.5 - 5.0 g/dL [facility] Alk phos 59 40 - 130 Units/L [facility] ALT 28 7 - 55 Units/L [facility] AST 26 10 - 50 Units/L [facility] Comment:Hemolyzed; result ma y be falsely elevated Blood 10/13/2024 8:12 PM JAVA SYSTEMS ANALYST 10/13/2024 8:23 PM JAVA SYSTEMS ANALYST James Robles MD LAB BLOOD ORDERABLES Final Resu lt Performing Organization Address City/[facility]/ZIP Co de Phone Number [facility] [place] [address] * (ABNORMAL) Basic metabolic panel (10/13/2024 8:12 PM JAVA SYSTEMS ANALYST) Sodium 140 135 - 145 mmol/L Potassium, pl 4.7 3.3 - 4.9 mmol/L [facility] Comment:Hemolyzed; Potassium value may be falsely elevated by as much as 0.3-0.5 mmol/L. Suggest redraw and reanalysis. Chloride 107 97 - 110 mmol/L [facility] CO2 23 22 - 32 mmol/L [facility] Anion gap 10 2 - 15 mmol/L [facility] BUN 26(H) 6 - 25 mg/dL [facility] Creatinine 1.25 0.80 - 1.30 mg/dL [facility] Glucose 96 70 - 199 mg/dL [facility] Comment: Interpretive Data Fasting glucose >/= [...] Calcium 8.9 8.5 - 10.3 mg/dL [facility] Blood 10/13/2024 8:12 PM JAVA SYSTEMS ANALYST 10/13/2024 8:23 PM JAVA SYSTEMS ANALYST James Robles MD LAB BLOOD ORDERABLES Final Resu lt Performing Organization Address [facility]/ZIP Co de Phone Number [facility] [place] [address] * US Vein Duplex Lower Extremity Bilateral Complete (10/13/2024 9:43 AM JAVA SYSTEMS ANALYST) Anatomical Region Laterality Modality Vascular Bilateral Ultrasound 10/13/2024 9:05 AM JAVA SYSTEMS ANALYST Narrative 10/13/2024 1:52 PM JAVA SYSTEMS ANALYST [facility] - Department of Vascular Surgery, Vascular Laboratory [address] [place] [id number] Lower Extremity Venous Ultrasound Report Patient Name: LILI DELGADO F : 1950 (74y ) Study Date: 10/13/2024 9:05:32 AM Gender: M Tech: Location: [id number] Ref Provider: MEGHAN WHYTE Quality: Adequate Order [...] thrombus size per hematology - FINDINGS: Performing [employer] Engraver Hand: Jessica Aguilar RVT. Right: Duplex scan reveals [...] Results called on the above date to Mgehan Whyte HIDE AND SKIN FLESHING MACHINE OPERATOR at 9:40am. CONCLUSIONS: 1. There [...] Electronically Signed By: Tyshawn Mullins MD [facility] 10/13/2024 1:52:11 PM JAVA SYSTEMS ANALYST Procedure Note Tyshawn Mullins MD - 10/13/2024 [facility] - Department of Vascular Surgery,Vascular Laboratory [address] [place] [address] Lower Extremity Venous Ultrasound Report Patient Name: LILI DELGADO F : 1950 (74y ) Study Date: 10/13/2024 9:05:32 AM Gender: M Tech: Location: [id number] Ref Provider: MEGHAN WHYTE Quality: Adequate Order [...] thrombus size per hematology - FINDINGS: Performing [employer] Met[employer] Engraver Hand: Jessica Aguilar RVT. Right: Duplex scan reveals [...] Tyshawn Mullins MD FACS 10/13/2024 1:52:11 PM JAVA SYSTEMS ANALYST us Meghan Whyte HIDE AND SKIN FLESHING MACHINE OPERATOR IMG US PROCEDURES Final Result * (ABNORMAL) aPTT (10/13/2024 6:24 AM JAVA SYSTEMS ANALYST) aPTT 55(H) 28 - 38 sec Comment: Interpretive Data Heparin therapeutic range: 66.0 - 100.0 seconds. Range based on correlation with therapeutic heparin activity range of 0.3 - 0.7 Units/mL. Current interpretive data was last revised on 2023. Blood 10/13/2024 6:2 4 AM JAVA SYSTEMS ANALYST 10/13/2024 6:52 AM JAVA SYSTEMS ANALYST Marco [facility] - 10/13/2024 7:17 AM JAVA SYSTEMS ANALYST STAT PTT timing: - Draw 6 hours [...] ORDERABLES Final Resu lt Performing Organization Address City/[facility]/ZIP Co de Phone Number [facility] Department of Laboratories [place], [place] [id number] * (ABNORMAL) eGFR (10/12/2024 9:40 PM JAVA SYSTEMS ANALYST) eGFR 49(L) >=60 mL/min/1. 73 m2 Comment: [...] last reviewed 2021. Blood 10/12/2024 9:40 PM JAVA SYSTEMS ANALYST 10/12/2024 11:24 PM JAVA SYSTEMS ANALYST us James Robles MD LAB BLOOD ORDERABLES Final Resu lt [facility] [place] [address] * (ABNORMAL) aPTT (10/12/2024 9:40 PM JAVA SYSTEMS ANALYST) [facility] aPTT 57(H) 28 - 38 sec Comment: Interpretive Data Heparin therapeutic range: 66.0 - 100.0 seconds. Range based on correlation with therapeutic heparin activity range of 0.3 - 0.7 Units/mL. Current interpretive data was last revised on 2023. Blood 10/12/2024 9:40 PM JAVA SYSTEMS ANALYST 10/12/2024 11:26 PM JAVA SYSTEMS ANALYST Meghan Whyte HIDE AND SKIN FLESHING MACHINE OPERATOR LAB BLOOD ORDERABLES Fin al Result Performing Organization Address City/[facility]/ZIP Co de Phone Number [facility] [place] [address] * (ABNORMAL) CBC without differential (10/12/2024 9:40 PM JAVA SYSTEMS ANALYST) [facility] WBC 13.9(H) 3.8 - 9.9 K/cumm Hgb 11.4(L) 13.0 - 17.5 g/dL [facility] Hct 35.0(L) 38.9 - 50.3 % [facility] Plt 232 150 - 400 K/cumm [facility] MPV 10.5 9.1 - 12.3 fL [facility] RBC 3.59(L) 4.30 - 5.80 M/cumm [facility] MCV 97.5(H) 81.3 - 96.4 fL [facility] MCH 31.8 27.1 - 33.3 pg [facility] MCHC 32.6 32.3 - 35.7 g/dL [facility] RDW CV 14.6 11.1 - 14.9 % [facility] RDW SD 51.2(H) 35.7 - 48.1 fL [facility] NRBC abs 0.00 0.00 - 0.01 K/cumm [facility] Blood 10/12/2024 9:40 PM JAVA SYSTEMS ANALYST 10/12/2024 11:24 PM JAVA SYSTEMS ANALYST Maria Isabel Unger HIDE AND SKIN FLESHING MACHINE OPERATOR LAB BLOOD ORDERABLES Final Result [facility] Department [place] [address] * (ABNORMAL) Basic metabolic panel (10/12/2024 9:40 PM JAVA SYSTEMS ANALYST) Sodium 144 135 - 145 mmol/L Potassium, pl 4.4 3.3 - 4.9 mmol/L [facility] Chloride 109 97 - 110 mmol/L [facility] CO2 27 22 - 32 mmol/L [facility] Anion gap 8 2 - 15 mmol/L [facility] BUN 28(H) 6 - 25 mg/dL [facility] Creatinine 1.48(H) 0.80 - 1.30 mg/dL [facility] Glucose 110 70 - 199 mg/dL [facility] Comment: Interpretive Data Fasting glucose >/= [...] Calcium 8.4(L) 8.5 - 10.3 mg/dL [facility] Blood 10/12/2024 9:40 PM JAVA SYSTEMS ANALYST 10/12/2024 11:24 PM JAVA SYSTEMS ANALYST us James Robles MD LAB BLOOD ORDERABLES Final Resu lt Performing Organization Address [facility] Co de Phone Number [facility] Department [place] [address] * (ABNORMAL) aPTT (10/12/2024 6:21 AM JAVA SYSTEMS ANALYST) aPTT 51(H) 28 - 38 sec Comment: Interpretive Data Heparin therapeutic range: 66.0 - 100.0 seconds. Range based on correlation with therapeutic heparin activity range of 0.3 - 0.7 Units/mL. Current interpretive data was last revised on 2023. Blood 10/12/2024 6:21 AM JAVA SYSTEMS ANALYST 10/12/2024 6:49 AM JAVA SYSTEMS ANALYST Narrative [facility] - 10/12/2024 6:56 AM JAVA SYSTEMS ANALYST STAT PTT timing: - Draw 6 hours [...] LAB BLOOD ORDERABLES Final Resu lt [facility] [place] [address] * (ABNORMAL) aPTT (10/12/2024 12:54 AM JAVA SYSTEMS ANALYST) [facility] aPTT 51(H) 28 - 38 sec Comment: Interpretive Data Heparin therapeutic range: 66.0 - 100.0 seconds. Range based on correlation with therapeutic heparin activity range of 0.3 - 0.7 Units/mL. Current interpretive data was last revised on 2023. Blood 10/12/2024 12:5 4 AM JAVA SYSTEMS ANALYST 10/12/2024 1:09 AM JAVA SYSTEMS ANALYST Narrative [facility] - 10/12/2024 1:17 AM JAVA SYSTEMS ANALYST STAT PTT timing: - Draw 6 hours [...] LAB BLOOD ORDERABLES Final Resu lt [facility] [place] [address] * (ABNORMAL) eGFR (10/11/2024 9:52 PM JAVA SYSTEMS ANALYST) eGFR 42(L) >=60 mL/min/1. 73 m2 Comment: [...] last reviewed 2021. Blood 10/11/2024 9:52 PM JAVA SYSTEMS ANALYST 10/11/2024 11:34 PM JAVA SYSTEMS ANALYST us James Robles MD LAB BLOOD ORDERABLES Final Resu lt [facility] [place] [place] [address] * (ABNORMAL) CBC without differential (10/11/2024 9:52 PM JAVA SYSTEMS ANALYST) Pathologist [facility] WBC 15.3(H) 3.8 - 9.9 K/cumm Hgb 10.9(L) 13.0 - 17.5 g/dL [facility] Hct 33.4(L) 38.9 - 50.3 % [facility] Plt 234 150 - 400 K/cumm [facility] MPV 10.4 9.1 - 12.3 fL [facility] RBC 3.47(L) 4.30 - 5.80 M/cumm [facility] MCV 96.3 81.3 - 96.4 fL [facility] MCH 31.4 27.1 - 33.3 pg [facility] MCHC 32.6 32.3 - 35.7 g/dL [facility] RDW CV 14.3 11.1 - 14.9 % [facility] RDW SD 49.6(H) 35.7 - 48.1 fL [facility] NRBC abs 0.00 0.00 - 0.01 K/cumm [facility] Blood 10/11/2024 9:52 PM JAVA SYSTEMS ANALYST 10/11/2024 11:34 PM JAVA SYSTEMS ANALYST us Maria Isabel Unger NP LAB BLOOD ORDERABLES Final Result [facility] Department [place] [address] * (ABNORMAL) Basic metabolic panel (10/11/2024 9:52 PM JAVA SYSTEMS ANALYST) Pathologist [facility] Sodium 141 135 - 145 mmol/L Potassium, pl 4.6 3.3 - 4.9 mmol/L [facility] Chloride 107 97 - 110 mmol/L [facility] CO2 27 22 - 32 mmol/L [facility] Anion gap 7 2 - 15 mmol/L [facility] BUN 35(H) 6 - 25 mg/dL [facility] Creatinine 1.68(H) 0.80 - 1.30 mg/dL [facility] Glucose 115 70 - 199 mg/dL [facility] Comment: Interpretive Data Fasting glucose >/= [...] Calcium 8.1(L) 8.5 - 10.3 mg/dL [facility] Blood 10/11/2024 9:52 PM JAVA SYSTEMS ANALYST 10/11/2024 11:34 PM JAVA SYSTEMS ANALYST us James Robles MD LAB BLOOD ORDERABLES Final Resu lt [facility] [place] [address] * aPTT (10/11/2024 5:30 PM JAVA SYSTEMS ANALYST) [facility] aPTT 33 28 - 38 sec Comment: Interpretive Data Heparin therapeutic range: 66.0 - 100.0 seconds. Range based on correlation with therapeutic heparin activity range of 0.3 - 0.7 Units/mL. Current interpretive data was last revised on 2023. Blood 10/11/2024 5:30 PM JAVA SYSTEMS ANALYST 10/11/2024 5:59 PM JAVA SYSTEMS ANALYST Narrative [facility] - 10/11/2024 6:07 PM JAVA SYSTEMS ANALYST STAT PTT timing: - Draw 6 hours [...] LAB BLOOD ORDERABLES Final Resu lt [facility] [place] [address] * (ABNORMAL) eGFR (10/10/2024 8:04 PM JAVA SYSTEMS ANALYST) [facility] Signature eGFR 45(L) >=60 mL/min/1. 73 m2 Comment: [...] last reviewed 2021. Blood 10/10/2024 8:04 PM JAVA SYSTEMS ANALYST 10/10/2024 8:34 PM JAVA SYSTEMS ANALYST James Robles MD LAB BLOOD ORDERABLES Final Resu lt Performing Organization Address [facility] Co de Phone Number [facility] [place] [address] * (ABNORMAL) aPTT (10/10/2024 8:04 PM JAVA SYSTEMS ANALYST) aPTT 22(L) 28 - 38 sec Comment: Interpretive Data Heparin therapeutic range: 66.0 - 100.0 seconds. Range based on correlation with therapeutic heparin activity range of 0.3 - 0.7 Units/mL. Current interpretive data was last revised on 2023. Blood 10/10/2024 8:04 PM JAVA SYSTEMS ANALYST 10/10/2024 8:24 PM JAVA SYSTEMS ANALYST James Robles MD LAB BLOOD ORDERABLES Final Resu lt Performing Organization Address [facility] [place] [address] * (ABNORMAL) aPTT (10/10/2024 8:04 PM JAVA SYSTEMS ANALYST) aPTT 22(L) 28 - 38 sec Comment: Interpretive Data Heparin therapeutic range: 66.0 - 100.0 seconds. Range based on correlation with therapeutic heparin activity range of 0.3 - 0.7 Units/mL. Current interpretive data was last revised on 2023. Blood 10/10/2024 8:04 PM JAVA SYSTEMS ANALYST 10/10/2024 8:24 PM JAVA SYSTEMS ANALYST Narrative [facility] - 10/10/2024 8:33 PM JAVA SYSTEMS ANALYST STAT PTT timing: - Draw 6 hours [...] James Robles MD LAB BLOOD ORDERABLES Final [facility] Performing Organization Address [facility] de Phone Number [facility] [place] [address] * Protime-INR (10/10/2024 8:04 PM JAVA SYSTEMS ANALYST) Pathologist [facility] PT 12.0 9.7 - 13.0 sec INR 1.11 0.90 - 1.20 [facility] Comment: Interpretive data Oral anticoagulant therapeutic ranges: Venous thromboembolism prophylaxis or treatment: 2.0-3.0 CARDIOLOGY Standard range: 2.0-3.0 High-intensity range: 2.5-3.5 Refer to indication-specific guidelines for appropriate target ranges for prosthetic heart valve replacement. Current interpretive data was last revised on 2019. Blood 10/10/2024 8:04 PM JAVA SYSTEMS ANALYST 10/10/2024 8:24 PM JAVA SYSTEMS ANALYST Result [facility] James Robles MD LAB BLOOD ORDERABLES Final Resu Performing Organization Address [facility] de Phone Number [facility] [place] [address] * (ABNORMAL) CBC without differential (10/10/2024 8:04 PM JAVA SYSTEMS ANALYST) Pathologist [facility] WBC 17.1(H) 3.8 - 9.9 K/cumm Hgb 11.6(L) 13.0 - 17.5 g/dL [facility] Hct 34.3(L) 38.9 - 50.3 % [facility] Plt 260 150 - 400 K/cumm [facility] MPV 10.3 9.1 - 12.3 fL [facility] RBC 3.62(L) 4.30 - 5.80 M/cumm [facility] MCV 94.8 81.3 - 96.4 fL [facility] MCH 32.0 27.1 - 33.3 pg [facility] MCHC 33.8 32.3 - 35.7 g/dL [facility] RDW CV 14.2 11.1 - 14.9 % [facility] RDW SD 48.3(H) 35.7 - 48.1 fL [facility] NRBC abs 0.00 0.00 - 0.01 K/cumm [facility] Blood 10/10/2024 8:04 PM JAVA SYSTEMS ANALYST 10/10/2024 8:34 PM JAVA SYSTEMS ANALYST Maria Isabel Unger NP LAB BLOOD ORDERABLES Final Result [facility] Department [place] [address] * (ABNORMAL) Basic metabolic panel (10/10/2024 8:04 PM JAVA SYSTEMS ANALYST) Sodium 140 135 - 145 mmol/L Potassium, pl 4.6 3.3 - 4.9 mmol/L [facility] Chloride 105 97 - 110 mmol/L [facility] CO2 24 22 - 32 mmol/L [facility] Anion gap 11 2 - 15 mmol/L [facility] BUN 32(H) 6 - 25 mg/dL [facility] Creatinine 1.59(H) 0.80 - 1.30 mg/dL [facility] Glucose 108 70 - 199 mg/dL [facility] Comment: Interpretive Data Fasting glucose >/= [...] Calcium 8.4(L) 8.5 - 10.3 mg/dL [facility] Blood 10/10/2024 8:04 PM JAVA SYSTEMS ANALYST 10/10/2024 8:34 PM JAVA SYSTEMS ANALYST James Robles MD LAB BLOOD ORDERABLES Final Resu lt [facility] [place] [address] * (ABNORMAL) CBC without differential (10/10/2024 11:51 AM JAVA SYSTEMS ANALYST) WBC 21.0(H) 3.8 - 9.9 K/cumm Hgb 12.0(L) 13.0 - 17.5 g/dL [facility] Hct 36.7(L) 38.9 - 50.3 % [facility] Plt 272 150 - 400 K/cumm [facility] MPV 10.4 9.1 - 12.3 fL [facility] RBC 3.84(L) 4.30 - 5.80 M/cumm [facility] MCV 95.6 81.3 - 96.4 fL [facility] MCH 31.3 27.1 - 33.3 pg [facility] MCHC 32.7 32.3 - 35.7 g/dL [facility] RDW CV 14.0 11.1 - 14.9 % [facility] RDW SD 47.8 35.7 - 48.1 fL [facility] NRBC abs 0.00 0.00 - 0.01 K/cumm [facility] Blood 10/10/2024 11:5 1 AM JAVA SYSTEMS ANALYST 10/10/2024 12:26 PM JAVA SYSTEMS ANALYST Narrative [facility] - 10/10/2024 12:37 PM JAVA SYSTEMS ANALYST Baseline prior to heparin initiation James Robles MD LAB BLOOD ORDERABLES Final Resu lt [facility] [place] [address] * (ABNORMAL) aPTT (10/10/2024 11:36 AM JAVA SYSTEMS ANALYST) aPTT 23(L) 28 - 38 sec Comment: Interpretive Data Heparin therapeutic range: 66.0 - 100.0 seconds. Range based on correlation with therapeutic heparin activity range of 0.3 - 0.7 Units/mL. Current interpretive data was last revised on 2023. Blood 10/10/2024 11:3 6 AM JAVA SYSTEMS ANALYST 10/10/2024 11:47 AM JAVA SYSTEMS ANALYST Narrative [facility] - 10/10/2024 12:16 PM JAVA SYSTEMS ANALYST Baseline prior to heparin initiation James Robles MD LAB BLOOD ORDERABLES Final Resu lt Performing Organization Address [facility] de Phone Number [facility] [place] [address] * Protime-INR (10/10/2024 11:36 AM JAVA SYSTEMS ANALYST) PT 11.3 9.7 - 13.0 sec INR 1.05 0.90 - 1.20 [facility] Comment: Interpretive data Oral anticoagulant therapeutic ranges: Venous thromboembolism prophylaxis or treatment: 2.0-3.0 CARDIOLOGY Standard range: 2.0-3.0 High-intensity range: 2.5-3.5 Refer to indication-specific guidelines for appropriate target ranges for prosthetic heart valve replacement. Current interpretive data was last revised on 2019. Blood 10/10/2024 11:3 6 AM JAVA SYSTEMS ANALYST 10/10/2024 11:47 AM JAVA SYSTEMS ANALYST Narrative [facility] - 10/10/2024 12:16 PM JAVA SYSTEMS ANALYST Baseline prior to heparin initiation James Robles MD LAB BLOOD ORDERABLES Final Resu lt Performing Organization Address [facility] Co de Phone Number [facility] [place] [address] * (ABNORMAL) eGFR (10/10/2024 3:19 AM JAVA SYSTEMS ANALYST) eGFR 53(L) >=60 mL/min/1. 73 m2 Comment: [...] last reviewed 2021. Blood 10/10/2024 3:19 AM JAVA SYSTEMS ANALYST 10/10/2024 5:57 AM JAVA SYSTEMS ANALYST us James Robles MD LAB BLOOD ORDERABLES Final Resu lt [facility] [place] [address] * (ABNORMAL) CBC without differential (10/10/2024 3:19 AM JAVA SYSTEMS ANALYST) WBC 18.6(H) 3.8 - 9.9 K/cumm Hgb 11.7(L) 13.0 - 17.5 g/dL [facility] Hct 35.3(L) 38.9 - 50.3 % [facility] Plt 234 150 - 400 K/cumm [facility] MPV 10.4 9.1 - 12.3 fL [facility] RBC 3.69(L) 4.30 - 5.80 M/cumm [facility] MCV 95.7 81.3 - 96.4 fL [facility] MCH 31.7 27.1 - 33.3 pg [facility] MCHC 33.1 32.3 - 35.7 g/dL [facility] RDW CV 14.1 11.1 - 14.9 % [facility] RDW SD 48.1 35.7 - 48.1 fL [facility] NRBC abs 0.00 0.00 - 0.01 K/cumm [facility] Blood 10/10/2024 3:19 AM JAVA SYSTEMS ANALYST 10/10/2024 6:01 AM JAVA SYSTEMS ANALYST Maria Isabel Unger NP LAB BLOOD ORDERABLES Final Result [facility] [place] [address] * (ABNORMAL) Basic metabolic panel (10/10/2024 3:19 AM JAVA SYSTEMS ANALYST) Sodium 141 135 - 145 mmol/L Potassium, pl 4.2 3.3 - 4.9 mmol/L [facility] Chloride 106 97 - 110 mmol/L [facility] CO2 27 22 - 32 mmol/L [facility] Anion gap 8 2 - 15 mmol/L [facility] BUN 34(H) 6 - 25 mg/dL [facility] Creatinine 1.38(H) 0.80 - 1.30 mg/dL [facility] Glucose 95 70 - 199 mg/dL [facility] Comment: Interpretive Data Fasting glucose >/= [...] Calcium 8.5 8.5 - 10.3 mg/dL [facility] Blood 10/10/2024 3:19 AM JAVA SYSTEMS ANALYST 10/10/2024 5:57 AM JAVA SYSTEMS ANALYST James Robles MD LAB BLOOD ORDERABLES Final Resu lt Performing Organization Address [facility] Co de Phone Number [facility] [place] [address] * POCT glucose (10/09/2024 8:41 PM JAVA SYSTEMS ANALYST) Glucose, POC 141 70 - 199 mg/dL Blood 10/09/2024 8:41 PM JAVA SYSTEMS ANALYST 10/09/2024 8:41 PM JAVA SYSTEMS ANALYST James Robles MD LAB POCT ORDERABLES - DEVICE Fi nal Result Performing Organization Address [facility] Co de Phone Number [facility] [place] [address] * US Vein Duplex Lower Extremity Bilateral Complete (10/09/2024 10:08 AM JAVA SYSTEMS ANALYST) Anatomical Region Laterality Modality Vascular Bilateral Ultrasound 10/09/2024 9:49 AM JAVA SYSTEMS ANALYST Narrative 10/09/2024 11:51 AM JAVA SYSTEMS ANALYST [employer] - Department of Vascular Surgery, Vascular Laboratory [address] [place] [id number] Lower Extremity Venous Ultrasound Report Patient Name: LILI DELGADO F : 1950 (74y ) Study Date: 10/09/2024 9:49:45 AM Gender: M Tech: AL Location: [id number] Ref Provider: OSIRIS OLIVEIRA ?Quality: Adequate Order [...] Pain in Leg, Right - FINDINGS: Performing [employer] Met[employer] Engraver Hand: Niurka Krishna RVT. Right: Duplex scan reveals [...] on the above date to Osiris Oliveira HIDE AND SKIN FLESHING MACHINE OPERATOR at 10:06 am. CONCLUSIONS: 1. [...] By: Tyshawn Mullins MD FACS 2024-10-09 11:50:17 JAVA SYSTEMS ANALYST Procedure Note Tyshawn Mullins MD - 10/09/2024 [facility] - Department of Vascular Surgery,Vascular Laboratory [address] [place] [address] Lower Extremity Venous Ultrasound Report Patient Name: LILI DELGADO F : 1950 (74y ) Study Date: 10/09/2024 9:49:45 AM Gender: M Tech: AL Location: [id number] Ref Provider: OSIRIS OLIVEIRA Quality: Adequate Order [...] Pain in Leg, Right - FINDINGS: Performing [employer] Met[employer] Engraver Hand: Niurka Krishna RVT. Right: Duplex scan reveals [...] on the above date to Osiris Oliveira HIDE AND SKIN FLESHING MACHINE OPERATOR at 10:06 am. CONCLUSIONS: 1. [...] Electronically Signed By: Tyshawn Mullins MD [facility] 2024-10-09 11:50:17 JAVA SYSTEMS ANALYST Osiris Oliveira HIDE AND SKIN FLESHING MACHINE OPERATOR IMG US PROCEDURES Final Result * XR Chest 1 View (10/09/2024 7:55 AM JAVA SYSTEMS ANALYST) Anatomical Region Laterality Modality Body, Chest N/A Digital Radiogra phy 10/09/2024 1:25 PM JAVA SYSTEMS ANALYST Impressions 10/09/2024 4:11 PM JAVA SYSTEMS ANALYST 1. ??Interval increase in left lung base atelectasis. Dictated by: Gabriel Warner M.D. The radiology attending physician has personally reviewed this study, and had reviewed and/or edited this written report and agrees with it. Electronically signed by: Austin Olesn M.D. Narrative 10/09/2024 4:11 PM JAVA SYSTEMS ANALYST EXAMINATION: 1 view chest radiograph History: 74-year-old [...] signed by: Austin Olsen M.D. Osiris Oliveira HIDE AND SKIN FLESHING MACHINE OPERATOR IMG XR PROCEDURES Final Result * (ABNORMAL) eGFR (10/08/2024 10:15 PM JAVA SYSTEMS ANALYST) eGFR 55(L) >=60 mL/min/1. 73 m2 Comment: [...] reviewed 2021. Blood 10/08/2024 10:1 5 PM JAVA SYSTEMS ANALYST 10/08/2024 11:56 PM JAVA SYSTEMS ANALYST Brianna Martínez HIDE AND SKIN FLESHING MACHINE OPERATOR LAB BLOOD ORDERABLES Cammy ramso Result [facility] Department [place] [address] * (ABNORMAL) CBC without differential (10/08/2024 10:15 PM JAVA SYSTEMS ANALYST) WBC 19.8(H) 3.8 - 9.9 K/cumm Hgb 11.2(L) 13.0 - 17.5 g/dL [facility] Hct 32.9(L) 38.9 - 50.3 % [facility] Plt 264 150 - 400 K/cumm [facility] MPV 10.5 9.1 - 12.3 fL [facility] RBC 3.57(L) 4.30 - 5.80 M/cumm [facility] MCV 92.2 81.3 - 96.4 fL [facility] MCH 31.4 27.1 - 33.3 pg [facility] MCHC 34.0 32.3 - 35.7 g/dL [facility] RDW CV 13.7 11.1 - 14.9 % [facility] RDW SD 45.1 35.7 - 48.1 fL [facility] NRBC abs 0.02(H) 0.00 - 0.01 K/cumm [facility] Blood 10/08/2024 10:1 5 PM JAVA SYSTEMS ANALYST 10/08/2024 11:57 PM JAVA SYSTEMS ANALYST Maria Isabel Unger HIDE AND SKIN FLESHING MACHINE OPERATOR LAB BLOOD ORDERABLES Final Result Performing Organization Address [facility] Co de Phone Number [facility] [place] [address] * Phosphorus (10/08/2024 10:15 PM JAVA SYSTEMS ANALYST) Phosphorus, pl 3.1 2.3 - 4.5 mg/dL Blood 10/08/2024 10:1 5 PM JAVA SYSTEMS ANALYST 10/08/2024 11:56 PM JAVA SYSTEMS ANALYST Brianna Martínez HIDE AND SKIN FLESHING MACHINE OPERATOR LAB BLOOD ORDERABLES Cammy l Result Performing Organization Address [facility] Co de Phone Number [facility] Department [place] [address] * Magnesium (10/08/2024 10:15 PM JAVA SYSTEMS ANALYST) Magnesium 2.3 1.4 - 2.5 mg/dL Blood 10/08/2024 10:1 5 PM JAVA SYSTEMS ANALYST 10/08/2024 11:56 PM JAVA SYSTEMS ANALYST Brianna Martínez HIDE AND SKIN FLESHING MACHINE OPERATOR LAB BLOOD ORDERABLES Cammy l Result Performing Organization Address City/[facility] Co de Phone Number [facility] [place] [address] * (ABNORMAL) Comprehensive metabolic panel (10/08/2024 10:15 PM JAVA SYSTEMS ANALYST) Sodium 141 135 - 145 mmol/L Potassium, pl 4.6 3.3 - 4.9 mmol/L [facility] Chloride 107 97 - 110 mmol/L [facility] CO2 25 22 - 32 mmol/L [facility] Anion gap 9 2 - 15 mmol/L [facility] BUN 33(H) 6 - 25 mg/dL [facility] Creatinine 1.33(H) 0.80 - 1.30 mg/dL [facility] Glucose 108 70 - 199 mg/dL [facility] Comment: Interpretive Data Fasting glucose >/= [...] Calcium 8.6 8.5 - 10.3 mg/dL [facility] Bilirubin, total 0.3 0.1 - 1.2 mg/dL [facility] Protein, pl 4.8(L) 6.5 - 8.5 g/dL [facility] Albumin 2.9(L) 3.5 - 5.0 g/dL [facility] Alk phos 49 40 - 130 Units/L [facility] ALT 39 7 - 55 Units/L [facility] AST 19 10 - 50 Units/L [facility] Blood 10/08/2024 10:1 5 PM JAVA SYSTEMS ANALYST 10/08/2024 11:56 PM JAVA SYSTEMS ANALYST Brianna Martínez HIDE AND SKIN FLESHING MACHINE OPERATOR LAB BLOOD ORDERABLES Cammy ramos Result [facility] [place] [address] * Troponin I high-sensitivity (10/08/2024 11:36 AM JAVA SYSTEMS ANALYST) Trop I hs 30 <=35 ng/L Comment: Interpretive Data For further hscTnI resources including the diagnostic algorithm and an aid in interpretation, copy and paste this link: [email or web address]://bjhlab.testcatalog.org/show/[email or web address] Current Interpretive Data last revised 2020. Blood 10/08/2024 11:3 6 AM JAVA SYSTEMS ANALYST 10/08/2024 11:44 AM JAVA SYSTEMS ANALYST Brianna Martínez HIDE AND SKIN FLESHING MACHINE OPERATOR LAB BLOOD ORDERABLES Cammy l Result Performing Organization Address [facility] Co de Phone Number [facility] [place] [address] * (ABNORMAL) Lactate (10/08/2024 8:38 AM JAVA SYSTEMS ANALYST) [facility] Lactate 2.9(H) 0.7 - 2.0 mmol/L Blood 10/08/2024 8:38 AM JAVA SYSTEMS ANALYST 10/08/2024 11:44 AM JAVA SYSTEMS ANALYST Brianna Martínez HIDE AND SKIN FLESHING MACHINE OPERATOR LAB BLOOD ORDERABLES Cammy l Result Performing Organization Address [facility] Co de Phone Number [facility] [place] [address] * eGFR (10/07/2024 10:19 PM JAVA SYSTEMS ANALYST) eGFR 62 >=60 mL/min/1. 73 m2 Comment: [...] reviewed 2021. Blood 10/07/2024 10:1 9 PM JAVA SYSTEMS ANALYST 10/07/2024 11:24 PM JAVA SYSTEMS ANALYST us James Robles MD LAB BLOOD ORDERABLES Final Resu lt [facility] Department of Laboratories [place], [place] [id number] * (ABNORMAL) CBC without differential (10/07/2024 10:19 PM JAVA SYSTEMS ANALYST) WBC 17.2(H) 3.8 - 9.9 K/cumm Hgb 11.4(L) 13.0 - 17.5 g/dL [facility] Hct 32.7(L) 38.9 - 50.3 % [facility] Plt 264 150 - 400 K/cumm [facility] MPV 10.6 9.1 - 12.3 fL [facility] RBC 3.58(L) 4.30 - 5.80 M/cumm [facility] MCV 91.3 81.3 - 96.4 fL [facility] MCH 31.8 27.1 - 33.3 pg [facility] MCHC 34.9 32.3 - 35.7 g/dL [facility] RDW CV 13.2 11.1 - 14.9 % [facility] RDW SD 43.6 35.7 - 48.1 fL [facility] NRBC abs 0.00 0.00 - 0.01 K/cumm [facility] Blood 10/07/2024 10:1 9 PM JAVA SYSTEMS ANALYST 10/07/2024 11:24 PM JAVA SYSTEMS ANALYST us Maria Isabel Unger NP LAB BLOOD ORDERABLES Final Result [facility] [place] [address] * (ABNORMAL) Basic metabolic panel (10/07/2024 10:19 PM JAVA SYSTEMS ANALYST) Sodium 142 135 - 145 mmol/L Potassium, pl 4.5 3.3 - 4.9 mmol/L [facility] Chloride 107 97 - 110 mmol/L [facility] CO2 26 22 - 32 mmol/L [facility] Anion gap 9 2 - 15 mmol/L [facility] BUN 33(H) 6 - 25 mg/dL [facility] Creatinine 1.21 0.80 - 1.30 mg/dL [facility] Glucose 140 70 - 199 mg/dL [facility] Comment: Interpretive Data Fasting glucose >/= [...] Calcium 8.5 8.5 - 10.3 mg/dL [facility] Blood 10/07/2024 10:1 9 PM JAVA SYSTEMS ANALYST 10/07/2024 11:24 PM JAVA SYSTEMS ANALYST us James Robles MD LAB BLOOD ORDERABLES Final Resu lt Performing Organization Address City/[facility]/ZIP Co de Phone Number [facility] [place] [address] * (ABNORMAL) Lactate, whole blood (10/07/2024 9:09 AM JAVA SYSTEMS ANALYST) Lactate, bld 3.4(H) 0.7 - 2.0 mmol/L Blood 10/07/2024 9:09 AM JAVA SYSTEMS ANALYST 10/07/2024 9:15 AM JAVA SYSTEMS ANALYST Brianna Martínez NP LAB BLOOD ORDERABLES Cammy richard Result Performing Organization Address [facility] Co de Phone Number [facility] [place] [address] * (ABNORMAL) Urinalysis reflex to microscopic and culture Urine (10/07/2024 5:37 AM JAVA SYSTEMS ANALYST) Pathologist [facility] Color, ur Straw Yellow Clarity, ur Clear Clear [facility] Specific gravity, ur 1.013 1.003 - 1.030 [facility] pH, urine 7.0 [facility] Comment: Interpretive Data ? Urine pH is affected by diet, medications, systemic acid-base disturbances, and renal tubular function. ??pH may affect urinary stone formation. ??For example, urine pH below 6.0 may help reduce the tendency for calcium phosphate stones and pH greater than 6.0 may reduce the tendency for uric acid stone formation. Source: [facility] [employer] Current Interpretive Data was last revised on 2017 Protein, ur ql Negative Negative [facility] Glucose, ur ql Negative Negative [facility] Ketones, ur Negative Negative [facility] Bilirubin, ur Negative Negative [facility] Blood, ur Trace(A) Negative [facility] Urobilinogen, ur <2.0 <2.0 mg/dL [facility] Nitrite, ur Negative Negative [facility] Leukocyte esterase, ur Negative Negative [facility] UA reflex comment Reflex to microscopic UA will be performed. [facility] Urine 10/07/2024 5:37 AM [employer] SYSTEMS ANALYST 10/07/2024 5:46 AM JAVA SYSTEMS ANALYST James Robles MD LAB MICROBIOLOGY - GENERAL [facility] JEFFERY Final Result Performing Organization Address [facility]/ZIP Co de Phone Number REYNALDO CARSON [facility] [place] [address] * Blood culture Blood (10/07/2024 5:37 AM JAVA SYSTEMS ANALYST) Report Final Report: No growth Blood 10/07/2024 5:37 AM JAVA SYSTEMS ANALYST 10/07/2024 7:00 AM J[employer] SYSTEMS ANALYST Narrative REYNALDO MAHARAJ - 10/11/2024 7:00 AM J[employer] SYSTEMS ANALYST Collection->Peripheral 1. ?Blood cultures are incubated for [...] organism identification may be performed using the Poyntigene Gram-Positive Blood Culture Assay. This assay detects microbial DNA in positive blood culture broth via hybridization of target DNA to capture oligonucleotides on a microarray. This assay has been cleared by the [place] Food and Drug Administration and its performance characteristics have been verified by the [facility]. 5. ?For questions about this culture, contact the Microbiology Laboratory at [phone]. Interpretive data was last revised on 2020. James Robles MD LAB MICROBIOLOGY - GENERAL RAYMOND JEFFERY Final Result REYNALDO MAHARAJ [facility] Department [place] [address] * Blood culture Blood (10/07/2024 5:37 AM JAVA SYSTEMS ANALYST) Report Final Report: No growth Blood 10/07/2024 5:37 AM JAVA SYSTEMS ANALYST 10/07/2024 6:07 AM JAVA SYSTEMS ANALYST Narrative REYNALDO MAHARAJ - 10/11/2024 7:00 AM JAVA SYSTEMS ANALYST Collection->Peripheral 1. ?Blood cultures are incubated for [...] organism identification may be performed using the Poyntigene Gram-Positive Blood Culture Assay. This assay detects microbial DNA in positive blood culture broth via hybridization of target DNA to capture oligonucleotides on a microarray. This assay has been cleared by the [place] Food and Drug Administration and its performance characteristics have been verified by the [facility]. 5. ?For questions about this culture, contact the Microbiology Laboratory at [phone]. Interpretive data was last revised on 2020. James Robles MD LAB MICROBIOLOGY - GENERAL RAYMOND JEFFERY Final Result REYNALDO MAHARAJ [facility] [place] [address] * (ABNORMAL) Urinalysis, microscopic only (10/07/2024 5:37 AM JAVA SYSTEMS ANALYST) WBC, ur 0-5 0 - 5 /HPF RBC, ur 11-20(A) 0 - 2 /HPF [facility] Mucous, ur Present(A) [facility] Culture Reflex Comment Reflex conditions for urine culture (WBC >10) not met. [facility] Urine 10/07/2024 5:37 AM JAVA SYSTEMS ANALYST 10/07/2024 5:46 AM JAVA SYSTEMS ANALYST James Robles MD LAB URINE ORDERABLES Final Resu lt [facility] Department [place] [address] * XR Chest 1 View (10/07/2024 5:18 AM JAVA SYSTEMS ANALYST) Anatomical Region Laterality Modality Body, Chest N/A Computed Radiogr aphy 10/07/2024 7:05 AM JAVA SYSTEMS ANALYST Impressions 10/07/2024 7:05 AM JAVA SYSTEMS ANALYST The current study is compared with the prior radiograph dated ??10/02/2024. ??Spine stimulator is present. ??The heart and mediastinal contours are normal. ??There is no mass or consolidation. There is no lymphadenopathy. ??There are no pleural effusions. ??There is no pneumothorax. There is no interval change. Electronically signed by: Lauren Cantrell M.D. Narrative 10/07/2024 7:05 AM JAVA SYSTEMS ANALYST EXAMINATION: 1 view chest radiograph Procedure Note [...] change. Electronically signed by: Lauren Cantrell M.D. James Robles MD IMG XR PROCEDURES Final Result * (ABNORMAL) Lactate, whole blood (10/06/2024 9:30 PM JAVA SYSTEMS ANALYST) Lactate, bld 2.7(H) 0.7 - 2.0 mmol/L Blood 10/06/2024 9:30 PM JAVA SYSTEMS ANALYST 10/06/2024 9:30 PM JAVA SYSTEMS ANALYST us Tamanna Porras NP LAB BLOOD ORDERABLES Final Resul t REYNALDO [facility] Department [place] [address] * eGFR (10/06/2024 9:16 PM JAVA SYSTEMS ANALYST) eGFR 61 >=60 mL/min/1. 73 m2 Comment: [...] last reviewed 2021. Blood 10/06/2024 9:16 PM JAVA SYSTEMS ANALYST 10/06/2024 9:34 PM JAVA SYSTEMS ANALYST us James Robles MD LAB BLOOD ORDERABLES Final Resu lt [facility] [place] [address] * (ABNORMAL) CBC without differential (10/06/2024 9:16 PM JAVA SYSTEMS ANALYST) [facility] WBC 17.1(H) 3.8 - 9.9 K/cumm Hgb 10.8(L) 13.0 - 17.5 g/dL [facility] Hct 30.7(L) 38.9 - 50.3 % [facility] Plt 256 150 - 400 K/cumm [facility] MPV 10.3 9.1 - 12.3 fL [facility] RBC 3.40(L) 4.30 - 5.80 M/cumm [facility] MCV 90.3 81.3 - 96.4 fL [facility] MCH 31.8 27.1 - 33.3 pg [facility] MCHC 35.2 32.3 - 35.7 g/dL [facility] RDW CV 13.1 11.1 - 14.9 % [facility] RDW SD 43.2 35.7 - 48.1 fL [facility] NRBC abs 0.00 0.00 - 0.01 K/cumm [facility] Blood 10/06/2024 9:16 PM JAVA SYSTEMS ANALYST 10/06/2024 9:34 PM JAVA SYSTEMS ANALYST us Maria Isabel Unger NP LAB BLOOD ORDERABLES Final Result [facility] Department [place] [address] * (ABNORMAL) Basic metabolic panel (10/06/2024 9:16 PM JAVA SYSTEMS ANALYST) [facility] Sodium 140 135 - 145 mmol/L Potassium, pl 4.7 3.3 - 4.9 mmol/L [facility] Chloride 105 97 - 110 mmol/L [facility] CO2 25 22 - 32 mmol/L [facility] Anion gap 10 2 - 15 mmol/L [facility] BUN 32(H) 6 - 25 mg/dL [facility] Creatinine 1.22 0.80 - 1.30 mg/dL [facility] Glucose 152 70 - 199 mg/dL [facility] Comment: Interpretive Data Fasting glucose >/= [...] Calcium 8.7 8.5 - 10.3 mg/dL [facility] Blood 10/06/2024 9:16 PM JAVA SYSTEMS ANALYST 10/06/2024 9:34 PM JAVA SYSTEMS ANALYST us James Robles MD LAB BLOOD ORDERABLES Final Resu lt [facility] [place] [address] * eGFR (10/05/2024 10:43 PM JAVA SYSTEMS ANALYST) eGFR 67 >=60 mL/min/1. 73 m2 Comment: [...] reviewed 2021. Blood 10/05/2024 10:4 3 PM JAVA SYSTEMS ANALYST 10/05/2024 11:10 PM JAVA SYSTEMS ANALYST James Robles MD LAB BLOOD ORDERABLES Final Resu lt Performing Organization Address [facility] Co de Phone Number [facility] Department [place] [address] * (ABNORMAL) Lactate, whole blood (10/05/2024 10:43 PM JAVA SYSTEMS ANALYST) Pathologist [facility] Lactate, bld 2.2(H) 0.7 - 2.0 mmol/L Blood 10/05/2024 10:4 3 PM JAVA SYSTEMS ANALYST 10/05/2024 11:07 PM JAVA SYSTEMS ANALYST Tamanna Porras NP LAB BLOOD ORDERABLES Final Resul t Performing Organization Address [facility] Co de Phone Number [facility] Department [place] [address] * (ABNORMAL) CBC without differential (10/05/2024 10:43 PM JAVA SYSTEMS ANALYST) WBC 16.5(H) 3.8 - 9.9 K/cumm Hgb 10.5(L) 13.0 - 17.5 g/dL [facility] Hct 31.4(L) 38.9 - 50.3 % [facility] Plt 238 150 - 400 K/cumm [facility] MPV 10.7 9.1 - 12.3 fL [facility] RBC 3.37(L) 4.30 - 5.80 M/cumm [facility] MCV 93.2 81.3 - 96.4 fL [facility] MCH 31.2 27.1 - 33.3 pg [facility] MCHC 33.4 32.3 - 35.7 g/dL [facility] RDW CV 13.3 11.1 - 14.9 % [facility] RDW SD 45.3 35.7 - 48.1 fL [facility] NRBC abs 0.00 0.00 - 0.01 K/cumm [facility] Blood 10/05/2024 10:4 3 PM JAVA SYSTEMS ANALYST 10/05/2024 11:11 PM JAVA SYSTEMS ANALYST Maria Isabel Unger NP LAB BLOOD ORDERABLES Final Result [facility] Department [place] [address] * (ABNORMAL) Basic metabolic panel (10/05/2024 10:43 PM JAVA SYSTEMS ANALYST) Sodium 143 135 - 145 mmol/L Potassium, pl 4.4 3.3 - 4.9 mmol/L [facility] Chloride 108 97 - 110 mmol/L [facility] CO2 25 22 - 32 mmol/L [facility] Anion gap 10 2 - 15 mmol/L [facility] BUN 30(H) 6 - 25 mg/dL [facility] Creatinine 1.14 0.80 - 1.30 mg/dL [facility] Glucose 139 70 - 199 mg/dL [facility] Comment: Interpretive Data Fasting glucose >/= [...] 2022. Calcium 8.8 8.5 - 10.3 mg/dL [facility] Blood 10/05/2024 10:4 3 PM JAVA SYSTEMS ANALYST 10/05/2024 11:10 PM JAVA SYSTEMS ANALYST James Robles MD LAB BLOOD ORDERABLES Final Resu lt Performing Organization Address City/[facility] Co de Phone Number [facility] Department [place] [address] * (ABNORMAL) Troponin I high-sensitivity (10/04/2024 8:49 PM JAVA SYSTEMS ANALYST) Trop I hs 128(H) <=35 ng/L Comment: Interpretive Data For further hscTnI resources including the diagnostic algorithm and an aid in interpretation, copy and paste this link: https://bjhlab.testcatalog.org/show/hsTrop-1 Current Interpretive Data last revised 2020. Blood 10/04/2024 8:49 PM JAVA SYSTEMS ANALYST 10/04/2024 9:06 PM JAVA SYSTEMS ANALYST us Tamanna Porras NP LAB BLOOD ORDERABLES Final Resul t Performing Organization Address [facility] Co de Phone Number [facility] Department [place] [address] * Calcium, ionized, whole blood (10/04/2024 8:49 PM JAVA SYSTEMS ANALYST) Ca, ionized, bld 5.10 4.50 - 5.10 mg/dL Blood 10/04/2024 8:49 PM JAVA SYSTEMS ANALYST 10/04/2024 9:00 PM JAVA SYSTEMS ANALYST Tamanna Porras NP LAB BLOOD ORDERABLES Final Resul t Performing Organization Address [facility] Co de Phone Number [facility] [place] [address] * (ABNORMAL) eGFR (10/04/2024 8:49 PM JAVA SYSTEMS ANALYST) Pathologist [facility] eGFR 57(L) >=60 mL/min/1. 73 m2 Comment: [...] last reviewed 2021. Blood 10/04/2024 8:49 PM JAVA SYSTEMS ANALYST 10/04/2024 9:06 PM JAVA SYSTEMS ANALYST us James Robles MD LAB BLOOD ORDERABLES Final Resu lt REYNALDO MAHARAJ [facility] Department [place] [address] * (ABNORMAL) Differential, auto (10/04/2024 8:49 PM JAVA SYSTEMS ANALYST) [facility] Neutrophil abs 20.1(H) 1.5 - 6.5 K/cumm Imm gran abs 0.3(H) 0.0 - 0.1 K/cumm [facility] Lymphocyte abs 1.2 0.8 - 3.3 K/cumm [facility] Monocyte abs 1.4(H) 0.2 - 0.8 K/cumm [facility] Eosinophil abs 0.0 0.0 - 0.5 K/cumm [facility] Basophil abs 0.0 0.0 - 0.1 K/cumm [facility] Neutrophil pct 87.4 % [facility] Comment: Consistent with previous result Interpretive Data Percent cell count reference ranges are not reported, since discordance with absolute values may lead to misinterpretation of CBC data. Current Interpretive Data was last revised on 2018. Imm gran pct 1.3 % [facility] Comment: Interpretive Data Percent cell count reference ranges are not reported, since discordance with absolute values may lead to misinterpretation of CBC data. Current Interpretive Data was last revised on 2018. Lymphocyte pct 5.2 % [facility] Comment: Interpretive Data Percent cell count reference ranges are not reported, since discordance with absolute values may lead to misinterpretation of CBC data. Current Interpretive Data was last revised on 2018. Monocyte pct 6.0 % [facility] Comment: Interpretive Data Percent cell count reference ranges are not reported, since discordance with absolute values may lead to misinterpretation of CBC data. Current Interpretive Data was last revised on 2018. Eosinophil pct 0.0 % [facility] Comment: Interpretive Data Percent cell count reference ranges are not reported, since discordance with absolute values may lead to misinterpretation of CBC data. Current Interpretive Data was last revised on 2018. Basophil pct 0.1 % [facility] Comment: Interpretive Data Percent cell count reference ranges are not reported, since discordance with absolute values may lead to misinterpretation of CBC data. Current Interpretive Data was last revised on 2018. Blood 10/04/2024 8:49 PM JAVA SYSTEMS ANALYST 10/04/2024 9:06 PM JAVA SYSTEMS ANALYST us James Robles MD LAB BLOOD ORDERABLES Final Resu lt [facility] Department [place] [address] * (ABNORMAL) CBC with auto differential (10/04/2024 8:49 PM JAVA SYSTEMS ANALYST) Pathologist [facility] WBC 23.0(H) 3.8 - 9.9 K/cumm Hgb 10.5(L) 13.0 - 17.5 g/dL [facility] Hct 31.0(L) 38.9 - 50.3 % [facility] Plt 207 150 - 400 K/cumm [facility] MPV 10.2 9.1 - 12.3 fL [facility] RBC 3.34(L) 4.30 - 5.80 M/cumm [facility] MCV 92.8 81.3 - 96.4 fL [facility] MCH 31.4 27.1 - 33.3 pg [facility] MCHC 33.9 32.3 - 35.7 g/dL [facility] RDW CV 13.6 11.1 - 14.9 % [facility] RDW SD 45.7 35.7 - 48.1 fL [facility] NRBC abs 0.00 0.00 - 0.01 K/cumm [facility] Blood 10/04/2024 8:49 PM JAVA SYSTEMS ANALYST 10/04/2024 9:06 PM JAVA SYSTEMS ANALYST us James Robles MD LAB BLOOD ORDERABLES Final Resu lt Performing Organization Address [facility] Co de Phone Number [facility] Department [place] [address] * (ABNORMAL) Lactate, whole blood (10/04/2024 8:49 PM JAVA SYSTEMS ANALYST) Pathologist [facility] Lactate, bld 2.5(H) 0.7 - 2.0 mmol/L Blood 10/04/2024 8:49 PM JAVA SYSTEMS ANALYST 10/04/2024 9:00 PM JAVA SYSTEMS ANALYST us Tamanna Vern HIDE AND SKIN FLESHING MACHINE OPERATOR LAB BLOOD ORDERABLES [facility] [place] [address] * (ABNORMAL) Basic metabolic panel (10/04/2024 8:49 PM JAVA SYSTEMS ANALYST) Pathologist [facility] Sodium 144 135 - 145 mmol/L Potassium, pl 4.4 3.3 - 4.9 mmol/L [facility] Chloride 113(H) 97 - 110 mmol/L [facility] CO2 22 22 - 32 mmol/L [facility] Anion gap 9 2 - 15 mmol/L [facility] BUN 24 6 - 25 mg/dL [facility] Creatinine 1.30 0.80 - 1.30 mg/dL [facility] Glucose 168 70 - 199 mg/dL [facility] Comment: Interpretive Data Fasting glucose >/= [...] Calcium 8.4(L) 8.5 - 10.3 mg/dL [facility] Blood 10/04/2024 8:49 PM JAVA SYSTEMS ANALYST 10/04/2024 9:06 PM JAVA SYSTEMS ANALYST us James Robles MD LAB BLOOD ORDERABLES Final Resu lt Performing Organization Address City/[facility]/ZIP Co de Phone Number [facility] [place] [address] * (ABNORMAL) Urinalysis reflex to microscopic and culture Urine (10/04/2024 1:30 PM JAVA SYSTEMS ANALYST) Color, ur Straw Yellow Clarity, ur Clear Clear [facility] Specific gravity, ur 1.028 1.003 - 1.030 [facility] pH, urine 6.0 [facility] Comment: Interpretive Data ? Urine pH is affected by diet, medications, systemic acid-base disturbances, and renal tubular function. ??pH may affect urinary stone formation. ??For example, urine pH below 6.0 may help reduce the tendency for calcium phosphate stones and pH greater than 6.0 may reduce the tendency for uric acid stone formation. Source: [facility] Current Interpretive Data was last revised on 2017 Protein, ur ql 1+(A) Negative [facility] Glucose, ur ql Negative Negative [facility] Ketones, ur Negative Negative [facility] Bilirubin, ur Negative Negative [facility] Blood, ur 3+(A) Negative [facility] Urobilinogen, ur <2.0 <2.0 mg/dL [facility] Nitrite, ur Negative Negative [facility] Leukocyte esterase, ur Negative Negative [facility] UA reflex comment Reflex to microscopic UA will be performed. [facility] Urine 10/04/2024 1:30 PM JAVA SYSTEMS ANALYST 10/04/2024 4:16 PM JAVA SYSTEMS ANALYST Tamanna Porras NP LAB MICROBIOLOGY - GENERAL ORDER TALYA Final Result Performing Organization Address City/State/[facility] Co de Phone Number [facility] Department [place] [address] * (ABNORMAL) Urinalysis, microscopic only (10/04/2024 1:30 PM JAVA SYSTEMS ANALYST) WBC, ur 0-5 0 - 5 /HPF RBC, ur >50(A) 0 - 2 /HPF [facility] Epithelial cells, squamous, ur 1-5 0 - 5 /HPF [facility] Mucous, ur Present(A) [facility] Culture Reflex Comment Reflex conditions for urine culture (WBC >10) not met. [facility] Urine 10/04/2024 1:30 PM JAVA SYSTEMS ANALYST 10/04/2024 4:15 PM JAVA SYSTEMS ANALYST us Tamanna Porras NP LAB URINE ORDERABLES Final Resul t Performing Organization Address City/State/[facility] Co de Phone Number [facility] Department [place] [address] * (ABNORMAL) Lactate, whole blood (10/04/2024 12:12 PM JAVA SYSTEMS ANALYST) [facility] Lactate, bld 3.7(H) 0.7 - 2.0 mmol/L Blood 10/04/2024 12:1 2 PM JAVA SYSTEMS ANALYST 10/04/2024 12:22 PM JAVA SYSTEMS ANALYST Tamanna Porras HIDE AND SKIN FLESHING MACHINE OPERATOR LAB BLOOD ORDERABLES Final Resul t Performing Organization Address [facility] de Phone Number [facility] Department [place] [address] * (ABNORMAL) Troponin I high-sensitivity 2-hour (10/04/2024 12:06 PM JAVA SYSTEMS ANALYST) [facility] Trop I hs 132(H) <=35 ng/L Comment: Interpretive Data For further hscTnI resources including the diagnostic algorithm and an aid in interpretation, copy and paste this link: https://bjhlab.testcatalog.org/show/hsTrop-[email or web address] Current Interpretive Data last revised 2020. Trop I hs pct delta -9 % [facility] Trop I hs interp Equivocal [facility] Blood 10/04/2024 12:0 6 PM JAVA SYSTEMS ANALYST 10/04/2024 12:30 PM JAVA SYSTEMS ANALYST Geraldine Leary HIDE AND SKIN FLESHING MACHINE OPERATOR LAB BLOOD ORDERABLES Final Result Performing Organization Address [facility] Co de Phone Number [facility] [address] * Influenza A/B, RSV, and COVID-19 PCR Nasopharyngeal (10/04/2024 9:06 AM JAVA SYSTEMS ANALYST) [facility] COVID-19 RNA Negative Negative [facility] Influenza A RNA Negative Negative [facility] Influenza B RNA Negative Negative [facility] RSV RNA Negative Negative [facility] Comment: Interpretive data: Testing performed by [facility] ([phone]). This test is performed using the PolyActiva Xpert Xpress CoV-2/Flu/RSV plus assay. This is a multiplex, real-time reverse transcriptase PCR assay intended for the qualitative detection of nucleic acid from SARS-CoV-2, influenza A, influenza B, and respiratory syncytial virus. This assay has been cleared by the [place] Food and Drug administration. The performance characteristics have been verified by the [facility]. ??Results must be considered in the clinical context, and a negative result does not rule out infection. Interpretive Data last revised 2023 Nasopharyngeal 10/04/2024 9: 06 AM JAVA SYSTEMS ANALYST 10/04/2024 10:22 AM JAVA SYSTEMS ANALYST Narrative [facility] - 10/04/2024 11:17 AM JAVA SYSTEMS ANALYST Is the Patient experiencing symptoms consistent with COVID?->Unknown Geraldine Leary NP LAB MICROBIOLOGY - NERAL ORDERABLES Final Result [facility] [place] [address] [facility] * (ABNORMAL) Troponin I high-sensitivity series (baseline, 2hr, 4hr, 6hr) (10/04/2024 9:06 AM JAVA SYSTEMS ANALYST) Trop I hs 145(H) <=35 ng/L Comment: Interpretive Data For further hscTnI resources including the diagnostic algorithm and an aid in interpretation, copy and paste this link: https://bjhlab.testcatalog.org/show/hsTrop-[email or web address] Current Interpretive Data last revised 2020. Blood 10/04/2024 9:06 AM JAVA SYSTEMS ANALYST 10/04/2024 9:58 AM JAVA SYSTEMS ANALYST Geraldine Leary NP LAB BLOOD ORDERABLES Final Result Performing Organization Address City/[facility]/ZIP Co de Phone Number [facility] Department [place] [address] * (ABNORMAL) Lactate (10/04/2024 9:06 AM JAVA SYSTEMS ANALYST) Pathologist [facility] Lactate 4.1(C) 0.7 - 2.0 mmol/L Blood 10/04/2024 9:06 AM JAVA SYSTEMS ANALYST 10/04/2024 9:58 AM JAVA SYSTEMS ANALYST Geraldine Leary NP LAB BLOOD ORDERABLES Final Result RE[facility]NALDO [facility] [place] [address] * Critical Result Callback Chemistry (10/04/2024 9:06 AM JAVA SYSTEMS ANALYST) Pathologist [facility] Date Notified [id number] Time Notified 1024 [facility] TestName Lactate REYNALDO MAHARAJ Called/Read Back Arin JACOBS [facility] Credentials RN REYNALDO [facility] Called By NEAL JACOBS [facility] Blood 10/04/2024 9:06 AM JAVA SYSTEMS ANALYST 10/04/2024 9:58 AM JAVA SYSTEMS ANALYST Geraldine Leary NP LAB BLOOD ORDERABLES Final Result Performing Organization Address City/[facility] Co de Phone Number [facility] [place] [address] * eGFR (10/03/2024 10:36 PM JAVA SYSTEMS ANALYST) Pathologist [facility] eGFR 61 >=60 mL/min/1. 73 [...] reviewed 2021. Blood 10/03/2024 10:3 6 PM JAVA SYSTEMS ANALYST 10/03/2024 10:52 PM JAVA SYSTEMS ANALYST us James Robles MD LAB BLOOD ORDERABLES Final Resu lt [facility] [place] [address] * (ABNORMAL) Basic metabolic panel (10/03/2024 10:36 PM JAVA SYSTEMS ANALYST) Sodium 142 135 - 145 mmol/L Potassium, pl 4.4 3.3 - 4.9 mmol/L [facility] Chloride 113(H) 97 - 110 mmol/L [facility] CO2 22 22 - 32 mmol/L [facility] Anion gap 7 2 - 15 mmol/L [facility] BUN 17 6 - 25 mg/dL [facility] Creatinine 1.23 0.80 - 1.30 mg/dL [facility] Glucose 162 70 - 199 mg/dL [facility] Comment: Interpretive Data Fasting glucose >/= [...] Calcium 8.1(L) 8.5 - 10.3 mg/dL [facility] Blood 10/03/2024 10:3 6 PM JAVA SYSTEMS ANALYST 10/03/2024 10:52 PM JAVA SYSTEMS ANALYST us James Robles MD LAB BLOOD ORDERABLES Final Resu lt [facility] [place] [address] * (ABNORMAL) Differential, auto (10/03/2024 8:30 PM JAVA SYSTEMS ANALYST) Neutrophil abs 22.7(H) 1.5 - 6.5 K/cumm Imm gran abs 0.3(H) 0.0 - 0.1 K/cumm [facility] Lymphocyte abs 1.2 0.8 - 3.3 K/cumm [facility] Monocyte abs 2.1(H) 0.2 - 0.8 K/cumm [facility] Eosinophil abs 0.0 0.0 - 0.5 K/cumm [facility] Basophil abs 0.0 0.0 - 0.1 K/cumm [facility] Neutrophil pct 86.2 % [facility] Comment: Consistent with previous result Interpretive Data Percent cell count reference ranges are not reported, since discordance with absolute values may lead to misinterpretation of CBC data. Current Interpretive Data was last revised on 2018. Imm gran pct 1.1 % [facility] Comment: Interpretive Data Percent cell count reference ranges are not reported, since discordance with absolute values may lead to misinterpretation of CBC data. Current Interpretive Data was last revised on 2018. Lymphocyte pct 4.6 % [facility] Comment: Interpretive Data Percent cell count reference ranges are not reported, since discordance with absolute values may lead to misinterpretation of CBC data. Current Interpretive Data was last revised on 2018. Monocyte pct 8.0 % [facility] Comment: Interpretive Data Percent cell count reference ranges are not reported, since discordance with absolute values may lead to misinterpretation of CBC data. Current Interpretive Data was last revised on 2018. Eosinophil pct 0.0 % [facility] Comment: Interpretive Data Percent cell count reference ranges are not reported, since discordance with absolute values may lead to misinterpretation of CBC data. Current Interpretive Data was last revised on 2018. Basophil pct 0.1 % [facility] Comment: Interpretive Data Percent cell count reference ranges are not reported, since discordance with absolute values may lead to misinterpretation of CBC data. Current Interpretive Data was last revised on 2018. Blood 10/03/2024 8:30 PM JAVA SYSTEMS ANALYST 10/03/2024 9:05 PM JAVA SYSTEMS ANALYST us James Robles MD LAB BLOOD ORDERABLES Final Resu lt [facility] [place] [address] * (ABNORMAL) CBC with auto differential (10/03/2024 8:30 PM JAVA SYSTEMS ANALYST) WBC 26.3(H) 3.8 - 9.9 K/cumm Hgb 11.3(L) 13.0 - 17.5 g/dL [facility] Hct 33.7(L) 38.9 - 50.3 % [facility] Plt 302 150 - 400 K/cumm [facility] MPV 10.4 9.1 - 12.3 fL [facility] RBC 3.61(L) 4.30 - 5.80 M/cumm [facility] MCV 93.4 81.3 - 96.4 fL [facility] MCH 31.3 27.1 - 33.3 pg [facility] MCHC 33.5 32.3 - 35.7 g/dL [facility] RDW CV 13.2 11.1 - 14.9 % [facility] RDW SD 45.1 35.7 - 48.1 fL [facility] NRBC abs 0.00 0.00 - 0.01 K/cumm [facility] Blood 10/03/2024 8:30 PM JAVA SYSTEMS ANALYST 10/03/2024 9:05 PM JAVA SYSTEMS ANALYST James Robles MD LAB BLOOD ORDERABLES Final Resu lt Performing Organization Address [facility] Co de Phone Number [facility] Department [place] [address] * eGFR (10/03/2024 8:25 PM JAVA SYSTEMS ANALYST) eGFR 60 >=60 mL/min/1. 73 m2 Comment: [...] last reviewed 2021. Blood 10/03/2024 8:25 PM JAVA SYSTEMS ANALYST 10/03/2024 9:05 PM JAVA SYSTEMS ANALYST James Robles MD LAB BLOOD ORDERABLES Final Resu lt [facility] Department [place] [address] * (ABNORMAL) Basic metabolic panel (10/03/2024 8:25 PM JAVA SYSTEMS ANALYST) [facility] Sodium 143 135 - 145 mmol/L Potassium, pl 4.1 3.3 - 4.9 mmol/L [facility] Chloride 113(H) 97 - 110 mmol/L [facility] CO2 20(L) 22 - 32 mmol/L [facility] Anion gap 10 2 - 15 mmol/L [facility] BUN 17 6 - 25 mg/dL [facility] Creatinine 1.25 0.80 - 1.30 mg/dL [facility] Glucose 163 70 - 199 mg/dL [facility] Comment: Interpretive Data Fasting glucose >/= [...] Calcium 8.0(L) 8.5 - 10.3 mg/dL [facility] Blood 10/03/2024 8:25 PM JAVA SYSTEMS ANALYST 10/03/2024 9:05 PM JAVA SYSTEMS ANALYST us James Robles MD LAB BLOOD ORDERABLES Final Resu lt [facility] Department [place] [address] * ECG 12 lead (10/03/2024 2:19 PM JAVA SYSTEMS ANALYST) [facility] Ventricular Rate EKG/Min 96 BPM [facility] Atrial Rate 96 BPM [facility] CT-Interval (MSEC) 242 ms [facility] QRS-Interval (MSEC) 110 ms [facility] QT-Interval (MSEC) 364 ms [facility] QTc 459 ms [facility] P [place] 69 degrees [facility] R [place] 76 degrees [facility] T [place] 1 degrees [facility] Diagnosis Sinus rhythm with 1st degree A-V [...] M.D ([id number]) on 10/04/2024 10:42:26 AM [facility] 10/03/2024 2:19 PM JAVA SYSTEMS ANALYST 10/04/2024 10:42 AM JAVA SYSTEMS ANALYST James Robles MD ECG ORDERABLES Final Result Performing Organization Address City/[facility] Co de Phone Number [facility] * POCT glucose (10/03/2024 2:07 PM JAVA SYSTEMS ANALYST) Pathologist [facility] Glucose, POC 128 70 - 199 mg/dL Blood 10/03/2024 2:07 PM JAVA SYSTEMS ANALYST 10/03/2024 2:07 PM JAVA SYSTEMS ANALYST James Robles MD LAB POCT ORDERABLES - DEVICE Fi nal Result Performing Organization Address City/[facility] Co de Phone Number [facility] Department [place] [address] * (ABNORMAL) eGFR (10/03/2024 4:58 AM JAVA SYSTEMS ANALYST) eGFR 57(L) >=60 mL/min/1. 73 m2 Comment: [...] last reviewed 2021. Blood 10/03/2024 4:58 AM JAVA SYSTEMS ANALYST 10/03/2024 5:32 AM JAVA SYSTEMS ANALYST us James Robles MD LAB BLOOD ORDERABLES Final Resu lt [facility] Department of Laboratories [place], [place] [id number] * (ABNORMAL) Differential, auto (10/03/2024 4:58 AM JAVA SYSTEMS ANALYST) Neutrophil abs 28.0(H) 1.5 - 6.5 K/cumm Imm gran abs 0.2(H) 0.0 - 0.1 K/cumm [facility] Lymphocyte abs 0.9 0.8 - 3.3 K/cumm [facility] Monocyte abs 1.5(H) 0.2 - 0.8 K/cumm [facility] Eosinophil abs 0.0 0.0 - 0.5 K/cumm [facility] Basophil abs 0.1 0.0 - 0.1 K/cumm [facility] Neutrophil pct 91.6 % [facility] Comment: Interpretive Data Percent cell count reference ranges are not reported, since discordance with absolute values may lead to misinterpretation of CBC data. Current Interpretive Data was last revised on 2018. Imm gran pct 0.6 % [facility] Comment: Interpretive Data Percent cell count reference ranges are not reported, since discordance with absolute values may lead to misinterpretation of CBC data. Current Interpretive Data was last revised on 2018. Lymphocyte pct 2.8 % [facility] Comment: Interpretive Data Percent cell count reference ranges are not reported, since discordance with absolute values may lead to misinterpretation of CBC data. Current Interpretive Data was last revised on 2018. Monocyte pct 4.8 % [facility] Comment: Interpretive Data Percent cell count reference ranges are not reported, since discordance with absolute values may lead to misinterpretation of CBC data. Current Interpretive Data was last revised on 2018. Eosinophil pct 0.0 % [facility] Comment: Interpretive Data Percent cell count reference ranges are not reported, since discordance with absolute values may lead to misinterpretation of CBC data. Current Interpretive Data was last revised on 2018. Basophil pct 0.2 % [facility] Comment: Interpretive Data Percent cell count reference ranges are not reported, since discordance with absolute values may lead to misinterpretation of CBC data. Current Interpretive Data was last revised on 2018. Blood 10/03/2024 4:58 AM JAVA SYSTEMS ANALYST 10/03/2024 5:32 AM JAVA SYSTEMS ANALYST us James Robles MD LAB BLOOD ORDERABLES Final Resu lt [facility] [place] [address] * (ABNORMAL) CBC with auto differential (10/03/2024 4:58 AM JAVA SYSTEMS ANALYST) WBC 30.5(H) 3.8 - 9.9 K/cumm Hgb 13.0 13.0 - 17.5 g/dL [facility] Hct 38.0(L) 38.9 - 50.3 % [facility] Plt 346 150 - 400 K/cumm [facility] MPV 10.2 9.1 - 12.3 fL [facility] RBC 4.14(L) 4.30 - 5.80 M/cumm [facility] MCV 91.8 81.3 - 96.4 fL [facility] MCH 31.4 27.1 - 33.3 pg [facility] MCHC 34.2 32.3 - 35.7 g/dL [facility] RDW CV 12.9 11.1 - 14.9 % [facility] RDW SD 43.0 35.7 - 48.1 fL [facility] NRBC abs 0.00 0.00 - 0.01 K/cumm [facility] Blood 10/03/2024 4:58 AM JAVA SYSTEMS ANALYST 10/03/2024 5:32 AM JAVA SYSTEMS ANALYST us James Robles MD LAB BLOOD ORDERABLES Final Resu lt [facility] [place] [address] * (ABNORMAL) Basic metabolic panel (10/03/2024 4:58 AM JAVA SYSTEMS ANALYST) Sodium 143 135 - 145 mmol/L Potassium, pl 4.7 3.3 - 4.9 mmol/L [facility] Chloride 111(H) 97 - 110 mmol/L [facility] CO2 22 22 - 32 mmol/L [facility] Anion gap 10 2 - 15 mmol/L [facility] BUN 14 6 - 25 mg/dL [facility] Creatinine 1.29 0.80 - 1.30 mg/dL [facility] Glucose 146 70 - 199 mg/dL [facility] Comment: Interpretive Data Fasting glucose >/= [...] 2022. Calcium 8.3(L) 8.5 - 10.3 mg/dL [facility] Blood 10/03/2024 4:58 AM JAVA SYSTEMS ANALYST 10/03/2024 5:32 AM JAVA SYSTEMS ANALYST us James Robles MD LAB BLOOD ORDERABLES Final Resu lt [facility] [place] [address] * XR chest 1 view (Portable) (10/02/2024 9:08 PM JAVA SYSTEMS ANALYST) Anatomical Region Laterality Modality Body, Chest N/A Computed Radiogr aphy 10/03/2024 8:28 AM JAVA SYSTEMS ANALYST Impressions 10/03/2024 4:05 PM JAVA SYSTEMS ANALYST No priors available for comparison. Spinal stimulator [...] James MD, PHD Narrative 10/03/2024 4:05 PM JAVA SYSTEMS ANALYST EXAMINATION: 1 view chest radiograph Procedure Note [...] Result * (ABNORMAL) eGFR (10/02/2024 4:01 PM JAVA SYSTEMS ANALYST) Pathologist [facility] eGFR 57(L) >=60 mL/min/1. 73 m2 Comment: [...] last reviewed 2021. Blood 10/02/2024 4:01 PM JAVA SYSTEMS ANALYST 10/02/2024 4:17 PM JAVA SYSTEMS ANALYST us James Robles MD LAB BLOOD ORDERABLES Final Resu lt [facility] Department [place] [address] * (ABNORMAL) Differential, auto (10/02/2024 4:01 PM JAVA SYSTEMS ANALYST) Neutrophil abs 14.1(H) 1.5 - 6.5 K/cumm Imm gran abs 0.1 0.0 - 0.1 K/cumm [facility] Lymphocyte abs 1.3 0.8 - 3.3 K/cumm [facility] Monocyte abs 0.7 0.2 - 0.8 K/cumm [facility] Eosinophil abs 0.0 0.0 - 0.5 K/cumm [facility] Basophil abs 0.1 0.0 - 0.1 K/cumm [facility] Neutrophil pct 86.5 % [facility] Comment: Interpretive Data Percent cell count reference ranges are not reported, since discordance with absolute values may lead to misinterpretation of CBC data. Current Interpretive Data was last revised on 2018. Imm gran pct 0.7 % [facility] Comment: Interpretive Data Percent cell count reference ranges are not reported, since discordance with absolute values may lead to misinterpretation of CBC data. Current Interpretive Data was last revised on 2018. Lymphocyte pct 8.0 % [facility] Comment: Interpretive Data Percent cell count reference ranges are not reported, since discordance with absolute values may lead to misinterpretation of CBC data. Current Interpretive Data was last revised on 2018. Monocyte pct 4.2 % [facility] Comment: Interpretive Data Percent cell count reference ranges are not reported, since discordance with absolute values may lead to misinterpretation of CBC data. Current Interpretive Data was last revised on 2018. Eosinophil pct 0.2 % [facility] Comment: Interpretive Data Percent cell count reference ranges are not reported, since discordance with absolute values may lead to misinterpretation of CBC data. Current Interpretive Data was last revised on 2018. Basophil pct 0.4 % [facility] Comment: Interpretive Data Percent cell count reference ranges are not reported, since discordance with absolute values may lead to misinterpretation of CBC data. Current Interpretive Data was last revised on 2018. Blood 10/02/2024 4:01 PM JAVA SYSTEMS ANALYST 10/02/2024 4:17 PM JAVA SYSTEMS ANALYST us James Robles MD LAB BLOOD ORDERABLES Final Resu lt Performing Organization Address [facility] Co de Phone Number [facility] Department [place] [address] * (ABNORMAL) CBC with auto differential (10/02/2024 4:01 PM JAVA SYSTEMS ANALYST) [facility] WBC 16.3(H) 3.8 - 9.9 K/cumm Hgb 12.7(L) 13.0 - 17.5 g/dL [facility] Hct 38.7(L) 38.9 - 50.3 % [facility] Plt 255 150 - 400 K/cumm [facility] MPV 9.8 9.1 - 12.3 fL [facility] RBC 4.10(L) 4.30 - 5.80 M/cumm [facility] MCV 94.4 81.3 - 96.4 fL [facility] MCH 31.0 27.1 - 33.3 pg [facility] MCHC 32.8 32.3 - 35.7 g/dL [facility] RDW CV 12.9 11.1 - 14.9 % [facility] RDW SD 44.5 35.7 - 48.1 fL [facility] NRBC abs 0.00 0.00 - 0.01 K/cumm [facility] Blood 10/02/2024 4:01 PM JAVA SYSTEMS ANALYST 10/02/2024 4:17 PM JAVA SYSTEMS ANALYST James Robles MD LAB BLOOD ORDERABLES Final Resu Performing Organization Address [facility]/ZIP Co de Phone Number [facility] [place] [address] * (ABNORMAL) aPTT (10/02/2024 4:01 PM JAVA SYSTEMS ANALYST) [facility] aPTT 27(L) 28 - 38 sec Comment: Interpretive Data Heparin therapeutic range: 66.0 - 100.0 seconds. Range based on correlation with therapeutic heparin activity range of 0.3 - 0.7 Units/mL. Current interpretive data was last revised on 2023. Blood 10/02/2024 4:01 PM JAVA SYSTEMS ANALYST 10/02/2024 4:16 PM JAVA SYSTEMS ANALYST James Robles MD LAB BLOOD ORDERABLES Final Resu lt Performing Organization Address [facility] Co de Phone Number [facility] [place] [address] * Protime-INR (10/02/2024 4:01 PM JAVA SYSTEMS ANALYST) PT 12.4 9.7 - 13.0 sec INR 1.14 0.90 - 1.20 [facility] Comment: Interpretive data Oral anticoagulant therapeutic ranges: Venous thromboembolism prophylaxis or treatment: 2.0-3.0 CARDIOLOGY Standard range: 2.0-3.0 High-intensity range: 2.5-3.5 Refer to indication-specific guidelines for appropriate target ranges for prosthetic heart valve replacement. Current interpretive data was last revised on 2019. Blood 10/02/2024 4:01 PM JAVA SYSTEMS ANALYST 10/02/2024 4:16 PM JAVA SYSTEMS ANALYST James Robles MD LAB BLOOD ORDERABLES Final Resu lt Performing Organization Address [facility] [place] [address] * Phosphorus (10/02/2024 4:01 PM JAVA SYSTEMS ANALYST) Pathologist [facility] Phosphorus, pl 2.4 2.3 - 4.5 mg/dL Blood 10/02/2024 4:01 PM JAVA SYSTEMS ANALYST 10/02/2024 4:17 PM JAVA SYSTEMS ANALYST James Robles MD LAB BLOOD ORDERABLES Final Resu lt Performing Organization Address [facility] Co de Phone Number [facility] [place] [address] * Magnesium (10/02/2024 4:01 PM JAVA SYSTEMS ANALYST) Magnesium 1.9 1.4 - 2.5 mg/dL Blood 10/02/2024 4:01 PM JAVA SYSTEMS ANALYST 10/02/2024 4:17 PM JAVA SYSTEMS ANALYST us James Robles MD LAB BLOOD ORDERABLES Final Resu lt [facility] [place] [address] * (ABNORMAL) Comprehensive metabolic panel (10/02/2024 4:01 PM JAVA SYSTEMS ANALYST) Pathologist [facility] Sodium 141 135 - 145 mmol/L Potassium, pl 4.2 3.3 - 4.9 mmol/L [facility] Chloride 112(H) 97 - 110 mmol/L [facility] CO2 22 22 - 32 mmol/L [facility] Anion gap 7 2 - 15 mmol/L [facility] BUN 16 6 - 25 mg/dL [facility] Creatinine 1.30 0.80 - 1.30 mg/dL [facility] Glucose 118 70 - 199 mg/dL [facility] Comment: Interpretive Data Fasting glucose >/= [...] Calcium 8.3(L) 8.5 - 10.3 mg/dL [facility] Bilirubin, total 0.2 0.1 - 1.2 mg/dL [facility] Protein, pl 5.5(L) 6.5 - 8.5 g/dL [facility] Albumin 3.4(L) 3.5 - 5.0 g/dL [facility] Alk phos 64 40 - 130 Units/L [facility] ALT 19 7 - 55 Units/L [facility] AST 21 10 - 50 Units/L [facility] Blood 10/02/2024 4:01 PM JAVA SYSTEMS ANALYST 10/02/2024 4:17 PM JAVA SYSTEMS ANALYST James Robles MD LAB BLOOD ORDERABLES Final Resu lt Performing Organization Address City/[facility]/ZIP Co de Phone Number [facility] [place] [address] * (ABNORMAL) POC Blood Gas and Chemistries, Arterial - (10/02/2024 2:30 PM JAVA SYSTEMS ANALYST) pH, Art POC 7.31(L) 7.35 - 7.45 pCO2, Art POC 41 35 - 45 mmHg [facility] pO2, Art POC 264(H) 83 - 108 mmHg [facility] Na, POC 140 135 - 145 mmol/L [facility] K POC 4.0 3.3 - 4.9 mmol/L [facility] Comment: Interpretive Data Not all point of care methods assess for hemolysis. Confirm with instrument and retest K+ if not consistent with clinical signs and symptoms. Current Interpretive Data was last revised on 2024. Cl, POC 111(H) 97 - 110 mmol/L [facility] Ionized Ca, POC 4.86 4.50 - 5.10 mg/dL [facility] Glucose, POC 104 70 - 199 mg/dL [facility] Lactate, POC 1.1 0.7 - 2.2 mmol/L [facility] SO2 (cas) arterial 100(H) 90 - 95 % [facility] Base excess, POC -5.4 mmol/L [facility] Hct, POC 37.0(L) 41.4 - 51.6 % [facility] Total Hb, POC 12.4(L) 13.8 - 17.2 g/dL [facility] Blood 10/02/2024 2:30 PM JAVA SYSTEMS ANALYST 10/02/2024 2:30 PM JAVA SYSTEMS ANALYST James Robles MD LAB POCT ORDERABLES - DEVICE Fi nal Result [facility] [place] [address] * FL Fluoroscopy < 1 Hour (10/02/2024 2:00 PM JAVA SYSTEMS ANALYST) Narrative [id number] - 10/03/2024 5:04 PM JAVA SYSTEMS ANALYST The images from this study are not interpreted by Radiology. ??Please refer to the physician's procedure / OR operative note. us James Robles MD IMG FLUOROSCOPY PROCEDURES Cammy l Result Performing Organization Address [facility]/ZIP Co de Phone Number [email or web address] * Surgical pathology (10/02/2024 12:15 PM JAVA SYSTEMS ANALYST) Soft tissue 10/02/2024 12:1 5 PM JAVA SYSTEMS ANALYST 10/02/2024 3:15 PM JAVA SYSTEMS ANALYST Narrative 10/06/2024 2:00 PM JAVA SYSTEMS ANALYST [facility] [place] [address] NEUROPATHOLOGY REPORT FINAL Patient Name:LILI DEGLADOAddress:[address] [place] [address] CTService:NeurosurgeryAccession #:[id number], [place] ??[id number]:[facility] OR POD 5Taken:10/02/2024Gender: MMRN :[id number]:4DOB:1950 (Age: 74)Hospital #:[id number]:10/02/2024atient Type:[facility] InpatientReported:10/06/2024 ? Physician(s): Abelardo Tijerina M.D. DIAGNOSIS: Soft tissue, arachnoid cyst wall, excision ? - Fragments of paucicellular tissue, consistent with an arachnoid cyst wall (see comment) [facility]/10/05/2024 09:33 By this signature, I attest that [...] Surgical Pathology report is available electronically in [employer]. The performance characteristics of some immunohistochemical stains, fluorescence in-situ hybridization tests and immunophenotyping by flow cytometry cited in this report (if any) were determined by the Surgical Pathology Department at [facility] as part of an ongoing business quality assurance analyst program and in compliance [...] determined by the Surgical Pathology Department of [facility]. ??It has not been cleared or approved by the U. S. Food and Drug Administration. James Robles MD LAB PATHOLOGY ORDERABLES Final Result * (ABNORMAL) POC Blood Gas and Chemistries, Arterial - (10/02/2024 10:43 AM JAVA SYSTEMS ANALYST) pH, Art POC 7.32(L) 7.35 - 7.45 pCO2, Art POC 41 35 - 45 mmHg [facility] pO2, Art POC 239(H) 83 - 108 mmHg [facility] Na, POC 141 135 - 145 mmol/L [facility] K POC 4.0 3.3 - 4.9 mmol/L [facility] Comment: Interpretive Data Not all point of care methods assess for hemolysis. Confirm with instrument and retest K+ if not consistent with clinical signs and symptoms. Current Interpretive Data was last revised on 2024. Cl, POC 112(H) 97 - 110 mmol/L [facility] Ionized Ca, POC 4.92 4.50 - 5.10 mg/dL [facility] Glucose, POC 97 70 - 199 mg/dL [facility] Lactate, POC 1.0 0.7 - 2.2 mmol/L [facility] SO2 (cas) arterial 100(H) 90 - 95 % [facility] Base excess, POC -4.7 mmol/L [facility] Hct, POC 35.0(L) 41.4 - 51.6 % [facility] Total Hb, POC 11.8(L) 13.8 - 17.2 g/dL [facility] Blood 10/02/2024 10:4 3 AM JAVA SYSTEMS ANALYST 10/02/2024 10:43 AM JAVA SYSTEMS ANALYST us James Robles MD LAB POCT ORDERABLES - DEVICE Fi nal Result [facility] [place] [address] * Arterial Line (10/02/2024 8:32 AM JAVA SYSTEMS ANALYST) Narrative Vance Morales MD - 10/02/2024 8:32 AM JAVA SYSTEMS ANALYST Vance Morales MD ? 10/02/2024 ??8:32 AM [...] Final Result * Airway (10/02/2024 8:31 AM JAVA SYSTEMS ANALYST) Narrative Vance Morales MD - 10/02/2024 8:31 AM JAVA SYSTEMS ANALYST Vance Morales MD ? 10/02/2024 ??8:32 AM [...] * Type and screen (10/02/2024 6:18 AM JAVA SYSTEMS ANALYST) Ramu, indirect Negative ABO Rh B Negative [facility] Blood 10/02/2024 6:18 AM JAVA SYSTEMS ANALYST 10/02/2024 6:26 AM JAVA SYSTEMS ANALYST Narrative [facility] - 10/02/2024 7:28 AM JAVA SYSTEMS ANALYST Has the patient had Daratumumab or Isatuximab in the past 6 months?->Unknown Sully Archer NP LAB BLOOD BANK TEST ORDER TALYA Final Result Performing Organization Address [facility] de Phone Number [facility] [place] [address] * TYPE AND SCREEN 14 DAY (09/13/2024 11:37 AM CDT) ABO Rh B Negative Ramu, indirect Negative [facility] Blood 09/13/2024 11:3 7 AM CDT 09/13/2024 1:50 PM CDT Narrative [facility] - 09/13/2024 3:22 PM CDT Has the patient had Daratumumab or Isatuximab in the past 6 months?->Unknown Is this test being ordered in advance for a procedure?->Yes Expected date of procedure:->10/02/24 Has the patient been transfused in the past 3 months?->No Sully Archer NP LAB BLOOD BANK TEST ORDER TALYA Final Result Performing Organization Address City/[facility]/ZIP Co de Phone Number [facility] [place] [address] * (ABNORMAL) eGFR (09/13/2024 11:37 AM CDT) Pathologist [facility] eGFR 46(L) >=60 mL/min/1. 73 m2 Comment: [...] LAB BLOOD ORDERABLES Final Resu lt RE[facility]LDO [facility] [place] [address] * (ABNORMAL) Differential, auto (09/13/2024 11:37 AM CDT) Pathologist [facility] Neutrophil abs 6.9(H) 1.5 - 6.5 K/cumm Imm gran abs 0.1 0.0 - 0.1 K/cumm [facility] Lymphocyte abs 2.2 0.8 - 3.3 K/cumm [facility] [facility] Monocyte abs 1.2(H) 0.2 - 0.8 K/cumm [facility] Eosinophil abs 0.1 0.0 - 0.5 K/cumm [facility] Basophil abs 0.0 0.0 - 0.1 K/cumm [facility] Neutrophil pct 66.1 % [facility] Comment: Interpretive Data Percent cell count reference ranges are not reported, since discordance with absolute values may lead to misinterpretation of CBC data. Current Interpretive Data was last revised on 2018. Imm gran pct 0.5 % [facility] Comment: Interpretive Data Percent cell count reference ranges are not reported, since discordance with absolute values may lead to misinterpretation of CBC data. Current Interpretive Data was last revised on 2018. Lymphocyte pct 20.7 % [facility] Comment: Interpretive Data Percent cell count reference ranges are not reported, since discordance with absolute values may lead to misinterpretation of CBC data. Current Interpretive Data was last revised on 2018. Monocyte pct 11.8 % [facility] Comment: Interpretive Data Percent cell count reference ranges are not reported, since discordance with absolute values may lead to misinterpretation of CBC data. Current Interpretive Data was last revised on 2018. Eosinophil pct 0.5 % [facility] Comment: Interpretive Data Percent cell count reference ranges are not reported, since discordance with absolute values may lead to misinterpretation of CBC data. Current Interpretive Data was last revised on 2018. Basophil pct 0.4 % [facility] Comment: Interpretive Data Percent cell count reference ranges are not reported, since discordance with absolute values may lead to misinterpretation of CBC data. Current Interpretive Data was last revised on 2018. Blood 09/13/2024 11:3 7 AM CDT 09/13/2024 1:36 PM CDT us James Robles MD LAB BLOOD ORDERABLES Final Resu lt Performing Organization Address City/State/[facility] Co de Phone Number [facility] [place] [address] * CPAP aPTT algorithm (09/13/2024 11:37 AM CDT) aPTT 30 28 - 38 sec Comment: Interpretive Data Heparin therapeutic range: 66.0 - 100.0 seconds. Range based on correlation with therapeutic heparin activity range of 0.3 - 0.7 Units/mL. Current interpretive data was last revised on 2023. Blood 09/13/2024 11:3 7 AM CDT 09/13/2024 1:35 PM CDT Sully Archer H[employer] AND [employer]IN FLESHING MACHINE OPERATOR LAB BLOOD ORDERABLES Cammy ramos Result Performing Organization Address [facility] de Phone Number [facility] [place] [address] * (ABNORMAL) Urinalysis reflex to microscopic and culture Urine, clean voided (09/13/2024 11:37 AM CDT) Color, ur Straw Yellow Clarity, ur Clear Clear [facility] Specific gravity, ur 1.016 1.003 - 1.030 [facility] pH, urine 5.5 [facility] Comment: Interpretive Data ? Urine pH is affected by diet, medications, systemic acid-base disturbances, and renal tubular function. ??pH may affect urinary stone formation. ??For example, urine pH below 6.0 may help reduce the tendency for calcium phosphate stones and pH greater than 6.0 may reduce the tendency for uric acid stone formation. Source: [facility] [employer] Current Interpretive Data was last revised on 2017 Protein, ur ql Trace Negative [facility] Glucose, ur ql Negative Negative [facility] Ketones, ur Negative Negative [facility] Bilirubin, ur Negative Negative [facility] Blood, ur 1+(A) Negative [facility] Urobilinogen, ur <2.0 <2.0 mg/dL [facility] Nitrite, ur Negative Negative [facility] Leukocyte esterase, ur Negative Negative [facility] UA reflex comment Reflex to microscopic UA will be performed. [facility] Urine, clean voided 09/13/2024 11:37 AM CDT 09/13/2024 1:37 PM CDT us James Robles MD LAB MICROBIOLOGY - GENERAL ORDE RABLES Final Result Performing Organization Address City/[facility]/ZIP Co de Phone Number [facility] Department [place] [address] * (ABNORMAL) CBC with auto differential (09/13/2024 11:37 AM CDT) WBC 10.4(H) 3.8 - 9.9 K/cumm Hgb 14.0 13.0 - 17.5 g/dL [facility] Hct 42.7 38.9 - 50.3 % [facility] Plt 254 150 - 400 K/cumm [facility] MPV 10.5 9.1 - 12.3 fL [facility] RBC 4.47 4.30 - 5.80 M/cumm [facility] MCV 95.5 81.3 - 96.4 fL [facility] MCH 31.3 27.1 - 33.3 pg [facility] MCHC 32.8 32.3 - 35.7 g/dL [facility] RDW CV 12.7 11.1 - 14.9 % [facility] RDW SD 44.9 35.7 - 48.1 fL [facility] NRBC abs 0.00 0.00 - 0.01 K/cumm [facility] Blood 09/13/2024 11:3 7 AM CDT 09/13/2024 1:36 PM CDT James Robles MD LAB BLOOD ORDERABLES Final Resu lt [facility] [place] [address] * Vitamin D 25 hydroxy (09/13/2024 11:37 AM CDT) Vitamin D 25-OH 30 30 - 80 ng/mL Blood 09/13/2024 11:3 7 AM CDT 09/13/2024 1:34 PM CDT Result [facility] James Robles MD LAB BLOOD ORDERABLES Final Resu lt Performing Organization Address [facility] de Phone Number [facility] Department [place] [address] * (ABNORMAL) Urinalysis, microscopic only (09/13/2024 11:37 AM CDT) Pathologist [facility] WBC, ur 6-10(A) 0 - 5 /HPF RBC, ur 21-50(A) 0 - 2 /HPF [facility] Epithelial cells, squamous, ur 1-5 0 - 5 /HPF [facility] Mucous, ur Present(A) [facility] Culture Reflex Comment Reflex conditions for urine culture (WBC >10) not met. [facility] Urine, clean voided 09/13/2024 11:37 AM CDT 09/13/2024 1:37 PM CDT Result [facility] James Robles MD LAB URINE ORDERABLES Final Resu lt Performing Organization Address [facility] de Phone Number [facility] Department [place] [address] * aPTT (09/13/2024 11:37 AM CDT) aPTT 30 28 - 38 sec Comment: Interpretive Data Heparin therapeutic range: 66.0 - 100.0 seconds. Range based on correlation with therapeutic heparin activity range of 0.3 - 0.7 Units/mL. Current interpretive data was last revised on 2023. Blood 09/13/2024 11:3 7 AM CDT 09/13/2024 1:35 PM CDT Result [facility] James Robles MD LAB BLOOD ORDERABLES Final Resu lt Performing Organization Address [facility] de Phone Number [facility] [employer] [address] * Protime-INR (09/13/2024 11:37 AM CDT) PT 11.0 9.7 - 13.0 sec INR 1.02 0.90 - 1.20 [facility] Comment: Interpretive data Oral anticoagulant therapeutic [...] ORDERABLES Final Resu lt Performing Organization Address [facility] de Phone Number [facility] [place] [employer] [place] [address] * (ABNORMAL) Basic metabolic panel (09/13/2024 11:37 AM CDT) Sodium 144 135 - 145 mmol/L Potassium, pl 3.8 3.3 - 4.9 mmol/L [facility] Chloride 105 97 - 110 mmol/L [facility] CO2 25 22 - 32 mmol/L [facility] Anion gap 14 2 - 15 mmol/L [facility] BUN 16 6 - 25 mg/dL [facility] Creatinine 1.55(H) 0.80 - 1.30 mg/dL [facility] Glucose 67(L) 70 - 199 mg/dL [facility] Comment: Interpretive Data Fasting glucose >/= [...] ORDERABLES Final Resu lt REYNALDO MAHARAJ [facility] [place] [address] from Last 3 Months Insurance MEDICARE [facility] MEDICARE [facility] Advance Directives For more information, please contact: [phone] * Full Code (Latest Code Status on File) Date Activated Date Inactivated Comments 10/02/2024 7:33 PM 10/14/2024 6:47 PM Care Teams Tax Services Specialist Relationship Specialty Start Date End Date Sj Benson MD [address] [facility] [place] [address] PCP - General Family Medicine 07/05/24
--- OUTSIDE RECORDS SUMMARY | 2024-11-16 21:29 | XMS_ITS | Encounter Summary ---
Author Organization [facility] Address [address] [place] [address] Phone Care Team Providers Care Lookback Coordinator Name Role Phone Sj Benson MD Primary Care Provider [phone] Encounter Details Date Type Department Care Team (Late st Contact Info) Description 10/13/2024 8:10 AM LAST INSERTER Ancillary Procedure [facility] IP [address] [place] [address] Social History Tobacco Use Types [...] on file Legal Sex Male 12:23 PM LAST INSERTER Gender Identity Not on file Sexual Orientation Not on file documented as of this encounter Plan of Treatment Not on file documented as of this encounter Procedures Procedure Name Priority Date/Time Associated Diagnosis Comments US VEIN DUPLEX LOWER EXTREMITY BILATERAL COMPLETE IP Routine 10/13/2024 9:43 AM LAST INSERTER documented in this encounter Results * US Vein Duplex Lower Extremity Bilateral Complete (10/13/2024 9:43 AM LAST INSERTER) Anatomical Region Laterality Modality Vascular Bilateral Ultrasound 10/13/2024 9:05 AM LAST INSERTER Narrative 10/13/2024 1:[address] [facility] - Department of Vascular Surgery, Vascular Laboratory [address] [place] [address] Lower Extremity Venous Ultrasound Report Patient Name: RYAN DELGADO F : 1950 (74y ) Study Date: 10/13/2024 9:05:32 AM Gender: M Tech: SAGAR Location: [id number] Ref Provider: MEGHAN WHYTE Quality: Adequate Order [...] thrombus size per hematology - FINDINGS: Performing Property Preservation Specialist: Jessica Aguilar RVT. Right: Duplex scan reveals [...] on the above date to Meghan Whyte ANALYST [employer]TELLIGENCE at 9:40am. CONCLUSIONS: 1. There is acute [...] Tyshawn Mullins MD FACS 10/13/2024 1:52:11 PM LAST INSERTER Procedure Note Tyshawn Mullins MD - 10/13/2024 [facility] - Department of Vascular Surgery,Vascular Laboratory [address] [place] [address] Lower Extremity Venous Ultrasound Report Patient Name: RYAN DELGADO F : 1950 (74y ) Study Date: 10/13/2024 9:05:32 AM Gender: M Tech: Location: [id number] Ref Provider: MEGHAN WHYTE Quality: Adequate Order [...] thrombus size per hematology - FINDINGS: Performing Property Preservation Specialist: Jessica Aguilar RVT. Right: Duplex scan reveals [...] above. Electronically Signed By: Tyshawn Mullins MD [facility] 10/13/2024 1:52:11 PM LAST INSERTER us Meghan Whyte ANALYST [employer]ET[employer] INTELLIGENCE IMG US PROCEDURES Final Result documented in this encounter Visit Diagnoses Not on filedocumented in this encounter Care Teams Lookback Coordinator Relationship Specialty Start Date End Date Sj Benson MD [address] [facility] [place] [address] PCP - General Family Medicine 07/05/24 documented as of this encounter
--- OUTSIDE RECORDS SUMMARY | 2024-11-16 21:29 | XMS_ITS | Clinical Summary ---
Author Organization [facility] Address [facility] [place] [address] Care Team Providers Care Swimming Pool Maintenance Name Role Phone Sj Benson MD Primary Care Provider [phone] Allergies Active Allergy Reactions Criticality Noted Date [...] Type Department Care Team Description 11/07/2024 Telephone [facility] Neurosurgery [address] [facility] 6th [place] [address] [place] [address] James Robles MD 11/06/2024 11:07 AM MARKETING TRAFFIC COORDINATOR - 11/06/2024 11:59 PM MARKETING TRAFFIC COORDINATOR Hospital Encounter [facility] Emergency, Room R Discharge Disposition: Discharge to home or self care 10/13/2024 8:10 AM MARKETING TRAFFIC COORDINATOR Ancillary Procedure [facility] Vascular Lab IP [address] [facility] [address] [place] [address] 10/09/2024 8:55 AM MARKETING TRAFFIC COORDINATOR Ancillary Procedure [facility] Vascular Lab IP [address] [facility] [address] [place] [address] 10/09/2024 Orders Only [facility] Hematology [address] [facility] Floor 6 [place] [address] Claudia Ryan NP Hospital discharge follow-up (Primary Dx) 10/09/2024 Telephone [facility] Cardiology [address] 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 10/02/2024 7:29 AM MARKETING TRAFFIC COORDINATOR Anesthesia Event [facility] Operating Room [address] [place] [address] Marimar Carr MD PhD Sully Archer NP 10/02/2024 5:29 AM MARKETING TRAFFIC COORDINATOR - 10/14/2024 2:41 PM MARKETING TRAFFIC COORDINATOR Hospital Encounter [facility] [address] [place] [address] James Robles MD Thoracic myelopathy Discharge Disposition: Discharge to an Rehab facility 10/02/2024 Orders Only [facility] Operating Room [address] [place] [address] James Robles MD 09/13/2024 10:30 AM CDT Pre-Admission Testing [facility] Pre Anesthesia Testing [address] [place] [address] Preoperative testing (Primary Dx) 09/13/2024 10:05 AM CDT Lab [facility] [address] [facility] [address] [place] [address] Preoperative testing; Thoracic myelopathy from Last 3 Months Immunizations Name Administration [...] on file Legal Sex Male 12:23 PM MARKETING TRAFFIC COORDINATOR Gender Identity Not on file Sexual Orientation Not on file Obstetrics History Last Filed Vital Signs Vital Sign Reading Time Taken Comments Blood Pressure 109/63 10/14/2024 12:17 PM MARKETING TRAFFIC COORDINATOR Pulse 60 10/14/2024 12:17 PM MARKETING TRAFFIC COORDINATOR Temperature 36.6 ??C (97.9 ??F) 10/14/2024 1 2:17 PM MARKETING TRAFFIC COORDINATOR Respiratory Rate 16 10/14/2024 12:1 7 PM MARKETING TRAFFIC COORDINATOR Oxygen Saturation 97% 10/14/2024 12: 17 PM MARKETING TRAFFIC COORDINATOR Inhaled Oxygen Concentration - - Weight 98.4 kg (216 lb 14.9 oz) 10/12/2024 2:30 PM MARKETING TRAFFIC COORDINATOR Height 182.9 cm (6') 10/03/2024 2:04 PM MARKETING TRAFFIC COORDINATOR Body Mass Index 29.42 10/03/2024 2:04 PM MARKETING TRAFFIC COORDINATOR Plan of Treatment Health Maintenance Due Date Last Done Comments Depression Screening 1950 Hepatitis C Screening 1950 Hepatitis B Screening 1966 Pneumococcal vaccine 65+ (1 of 1 - PCV) 2013 Well Visit 65+ 2013 Covid-19 Vaccine (3 - 2023- season) 2024, 02/10/2021 Influenza Vaccine (#1) 2024 Fall Risk Assessment 10/14/2025 10/14/2024 DTaP/Tdap/Td Vaccine (3 - Td or Tdap) 08/10/2027, 03/04/2017 Zoster Vaccine Completed 11/10/2022, 07/10/2022 Procedures Procedure Name Priority Date/Time Associated Diagnosis Comments HEPATIC FUNCTION PANEL Routine 4 8:12 PM MARKETING TRAFFIC COORDINATOR EGFR Routine 10/13/2024 8:12 PM MARKETING TRAFFIC COORDINATOR PROTIME-INR STAT 10/13/2024 8:12 PM MARKETING TRAFFIC COORDINATOR CBC WITHOUT DIFFERENTIAL Routine 10/13/2024 8:12 PM MARKETING TRAFFIC COORDINATOR BASIC METABOLIC PANEL Routine 10/13/2024 8:12 PM MARKETING TRAFFIC COORDINATOR PEP THERAPY Routine 10/13/2024 12:00 PM MARKETING TRAFFIC COORDINATOR US VEIN DUPLEX LOWER EXTREMITY BILATERAL COMPLETE IP Routine 10/13/2024 9:43 AM MARKETING TRAFFIC COORDINATOR APTT STAT 10/13/2024 6:24 AM MARKETING TRAFFIC COORDINATOR PEP THERAPY Routine 10/13/2024 6:01 AM MARKETING TRAFFIC COORDINATOR EGFR Routine 10/12/2024 9:40 PM MARKETING TRAFFIC COORDINATOR APTT Routine 10/12/2024 9:40 PM MARKETING TRAFFIC COORDINATOR CBC WITHOUT DIFFERENTIAL Routine 10/12/2024 9:40 PM MARKETING TRAFFIC COORDINATOR BASIC METABOLIC PANEL Routine 10/12/2024 9:40 PM MARKETING TRAFFIC COORDINATOR PEP THERAPY Routine 10/12/2024 6:00 PM MARKETING TRAFFIC COORDINATOR PEP THERAPY Routine 10/12/2024 12:00 PM MARKETING TRAFFIC COORDINATOR APTT STAT 10/12/2024 6:21 AM MARKETING TRAFFIC COORDINATOR PEP THERAPY Routine 10/12/2024 6:01 AM MARKETING TRAFFIC COORDINATOR APTT STAT 10/12/2024 12:54 AM MARKETING TRAFFIC COORDINATOR EGFR Routine 10/11/2024 9:52 PM MARKETING TRAFFIC COORDINATOR CBC WITHOUT DIFFERENTIAL Routine 10/11/2024 9:52 PM MARKETING TRAFFIC COORDINATOR BASIC METABOLIC PANEL Routine 10/11/2024 9:52 PM MARKETING TRAFFIC COORDINATOR PEP THERAPY Routine 10/11/2024 6:00 PM MARKETING TRAFFIC COORDINATOR APTT STAT 10/11/2024 5:30 PM MARKETING TRAFFIC COORDINATOR PEP THERAPY Routine 10/11/2024 12:00 PM MARKETING TRAFFIC COORDINATOR PEP THERAPY Routine 10/11/2024 6:01 AM MARKETING TRAFFIC COORDINATOR PEP THERAPY Routine 10/11/2024 12:00 AM MARKETING TRAFFIC COORDINATOR EGFR Routine 10/10/2024 8:04 PM MARKETING TRAFFIC COORDINATOR APTT STAT 10/10/2024 8:04 PM MARKETING TRAFFIC COORDINATOR PROTIME-INR STAT 10/10/2024 8:04 PM MARKETING TRAFFIC COORDINATOR APTT STAT 10/10/2024 8:04 PM MARKETING TRAFFIC COORDINATOR CBC WITHOUT DIFFERENTIAL Routine 10/10/2024 8:04 PM MARKETING TRAFFIC COORDINATOR BASIC METABOLIC PANEL Routine 10/10/2024 8:04 PM MARKETING TRAFFIC COORDINATOR PEP THERAPY Routine 10/10/2024 12:00 PM MARKETING TRAFFIC COORDINATOR CBC WITHOUT DIFFERENTIAL STAT 10/10/2024 11:51 AM MARKETING TRAFFIC COORDINATOR APTT STAT 10/10/2024 11:36 AM MARKETING TRAFFIC COORDINATOR PROTIME-INR STAT 10/10/2024 11:36 AM MARKETING TRAFFIC COORDINATOR PEP THERAPY Routine 10/10/2024 6:01 AM MARKETING TRAFFIC COORDINATOR EGFR Routine 10/10/2024 3:19 AM MARKETING TRAFFIC COORDINATOR CBC WITHOUT DIFFERENTIAL Routine 10/10/2024 3:19 AM MARKETING TRAFFIC COORDINATOR BASIC METABOLIC PANEL Routine 10/10/2024 3:19 AM MARKETING TRAFFIC COORDINATOR PEP THERAPY Routine 10/10/2024 12:00 AM MARKETING TRAFFIC COORDINATOR POCT GLUCOSE DEVICE Routine 10/09/2024 8 :41 PM MARKETING TRAFFIC COORDINATOR PEP THERAPY Routine 10/09/2024 6:00 PM MARKETING TRAFFIC COORDINATOR US VEIN DUPLEX LOWER EXTREMITY BILATERAL COMPLETE ED Urgent/IP Urgent 10/09/2024 10:08 AM MARKETING TRAFFIC COORDINATOR XR CHEST 1 VIEW IP Routine 10/09/2024 7:55 AM MARKETING TRAFFIC COORDINATOR PEP THERAPY Routine 10/09/2024 6:01 AM MARKETING TRAFFIC COORDINATOR PEP THERAPY Routine 10/09/2024 12:00 AM MARKETING TRAFFIC COORDINATOR EGFR Timed 10/08/2024 10:15 PM MARKETING TRAFFIC COORDINATOR PHOSPHORUS Timed 10/08/2024 10:15 PM MARKETING TRAFFIC COORDINATOR MAGNESIUM Timed 10/08/2024 10:15 PM MARKETING TRAFFIC COORDINATOR COMPREHENSIVE METABOLIC PANEL Timed 10/08/2024 10:15 PM MARKETING TRAFFIC COORDINATOR CBC WITHOUT DIFFERENTIAL Routine 10/08/2024 10:15 PM MARKETING TRAFFIC COORDINATOR PEP THERAPY Routine 10/08/2024 6:00 PM MARKETING TRAFFIC COORDINATOR PEP THERAPY Routine 10/08/2024 12:00 PM MARKETING TRAFFIC COORDINATOR TROPONIN I HIGH-SENSITIVITY STAT 10/08/2024 11:36 AM MARKETING TRAFFIC COORDINATOR LACTATE Timed 10/08/2024 8:38 AM MARKETING TRAFFIC COORDINATOR PEP THERAPY Routine 10/08/2024 6:00 AM MARKETING TRAFFIC COORDINATOR EGFR Routine 10/07/2024 10:19 PM MARKETING TRAFFIC COORDINATOR CBC WITHOUT DIFFERENTIAL Routine 10/07/2024 10:19 PM MARKETING TRAFFIC COORDINATOR BASIC METABOLIC PANEL Routine 10/07/2024 10:19 PM MARKETING TRAFFIC COORDINATOR LACTATE, WHOLE BLOOD Timed 10/07/2024 9:09 AM MARKETING TRAFFIC COORDINATOR URINALYSIS, MICROSCOPIC ONLY Routine 10/07/2024 5:37 AM MARKETING TRAFFIC COORDINATOR URINALYSIS AND REFLEX TO MICROSCOPIC AND CULTURE Routine 10/07/2024 5:37 AM MARKETING TRAFFIC COORDINATOR BLOOD CULTURE STAT 10/07/2024 5:37 AM MARKETING TRAFFIC COORDINATOR BLOOD CULTURE STAT 10/07/2024 5:37 AM MARKETING TRAFFIC COORDINATOR XR CHEST 1 VIEW IP Routine 10/07/2024 5:18 AM MARKETING TRAFFIC COORDINATOR PEP THERAPY Routine 10/07/2024 12:00 AM MARKETING TRAFFIC COORDINATOR LACTATE, WHOLE BLOOD Routine 10/06/2024 9:30 PM MARKETING TRAFFIC COORDINATOR EGFR Routine 10/06/2024 9:16 PM MARKETING TRAFFIC COORDINATOR CBC WITHOUT DIFFERENTIAL Routine 10/06/2024 9:16 PM MARKETING TRAFFIC COORDINATOR BASIC METABOLIC PANEL Routine 10/06/2024 9:16 PM MARKETING TRAFFIC COORDINATOR PEP THERAPY Routine 10/06/2024 6:00 PM MARKETING TRAFFIC COORDINATOR PEP THERAPY Routine 10/06/2024 12:00 PM MARKETING TRAFFIC COORDINATOR PEP THERAPY Routine 10/06/2024 6:01 AM MARKETING TRAFFIC COORDINATOR EGFR Routine 10/05/2024 10:43 PM MARKETING TRAFFIC COORDINATOR CBC WITHOUT DIFFERENTIAL Routine 10/05/2024 10:43 PM MARKETING TRAFFIC COORDINATOR LACTATE, WHOLE BLOOD Routine 10/05/2024 10:43 PM MARKETING TRAFFIC COORDINATOR BASIC METABOLIC PANEL Routine 10/05/2024 10:43 PM MARKETING TRAFFIC COORDINATOR PEP THERAPY Routine 10/05/2024 6:12 PM MARKETING TRAFFIC COORDINATOR PEP THERAPY Routine 10/05/2024 6:12 PM MARKETING TRAFFIC COORDINATOR EGFR Routine 10/04/2024 8:49 PM MARKETING TRAFFIC COORDINATOR DIFFERENTIAL AUTO Routine 10/04/2024 8:4 9 PM MARKETING TRAFFIC COORDINATOR LACTATE, WHOLE BLOOD Routine 10/04/2024 8:49 PM MARKETING TRAFFIC COORDINATOR CALCIUM,IONIZED, WHOLE BLOOD Routine 10/04/2024 8:49 PM MARKETING TRAFFIC COORDINATOR TROPONIN I HIGH-SENSITIVITY Routine 10/04/2024 8:49 PM MARKETING TRAFFIC COORDINATOR CBC WITH AUTO DIFFERENTIAL Routine 10/04/2024 8:49 PM MARKETING TRAFFIC COORDINATOR BASIC METABOLIC PANEL Routine 10/04/2024 8:49 PM MARKETING TRAFFIC COORDINATOR URINALYSIS, MICROSCOPIC ONLY STAT 10/04/2024 1:30 PM MARKETING TRAFFIC COORDINATOR URINALYSIS AND REFLEX TO MICROSCOPIC AND CULTURE STAT 10/04/2024 1:30 PM MARKETING TRAFFIC COORDINATOR LACTATE, WHOLE BLOOD STAT 10/04/2024 12:12 PM MARKETING TRAFFIC COORDINATOR TROPONIN I HIGH-SENSITIVITY 2-HOUR Timed 10/04/2024 12:06 PM MARKETING TRAFFIC COORDINATOR CRITICAL RESULT CALLBACK CHEMISTRY STAT 10/04/2024 9:06 AM MARKETING TRAFFIC COORDINATOR TROPONIN I HIGH-SENSITIVITY SERIES (BASELINE, 2HR, 4HR, 6HR) Routine 10/04/2024 9:06 AM MARKETING TRAFFIC COORDINATOR LACTATE STAT 10/04/2024 9:06 AM MARKETING TRAFFIC COORDINATOR INFLUENZA A/B, RSV, AND COVID-19 PCR Routine 10/04/2024 9:06 AM MARKETING TRAFFIC COORDINATOR EGFR Routine 10/03/2024 10:36 PM MARKETING TRAFFIC COORDINATOR BASIC METABOLIC PANEL Routine 10/03/2024 10:36 PM MARKETING TRAFFIC COORDINATOR DIFFERENTIAL AUTO Routine 10/03/2024 8:3 0 PM MARKETING TRAFFIC COORDINATOR CBC WITH AUTO DIFFERENTIAL Routine 10/03/2024 8:30 PM MARKETING TRAFFIC COORDINATOR EGFR STAT 10/03/2024 8:25 PM MARKETING TRAFFIC COORDINATOR BASIC METABOLIC PANEL STAT 10/03/2024 8:25 PM MARKETING TRAFFIC COORDINATOR ECG 12-LEAD Routine 10/03/2024 2:19 PM MARKETING TRAFFIC COORDINATOR POCT GLUCOSE DEVICE Routine 10/03/2024 2 :07 PM MARKETING TRAFFIC COORDINATOR EGFR Routine 10/03/2024 4:58 AM MARKETING TRAFFIC COORDINATOR DIFFERENTIAL AUTO Routine 10/03/2024 4:5 8 AM MARKETING TRAFFIC COORDINATOR BASIC METABOLIC PANEL Routine 10/03/2024 4:58 AM MARKETING TRAFFIC COORDINATOR CBC WITH AUTO DIFFERENTIAL Routine 10/03/2024 4:58 AM MARKETING TRAFFIC COORDINATOR XR CHEST 1 VIEW IP Routine 10/02/2024 9:08 PM MARKETING TRAFFIC COORDINATOR EGFR STAT 10/02/2024 4:01 PM MARKETING TRAFFIC COORDINATOR DIFFERENTIAL AUTO STAT 10/02/2024 4:0 1 PM MARKETING TRAFFIC COORDINATOR PROTIME-INR STAT 10/02/2024 4:01 PM MARKETING TRAFFIC COORDINATOR APTT STAT 10/02/2024 4:01 PM MARKETING TRAFFIC COORDINATOR CBC WITH AUTO DIFFERENTIAL STAT 10/02/2024 4:01 PM MARKETING TRAFFIC COORDINATOR PHOSPHORUS STAT 10/02/2024 4:01 PM MARKETING TRAFFIC COORDINATOR MAGNESIUM STAT 10/02/2024 4:01 PM MARKETING TRAFFIC COORDINATOR COMPREHENSIVE METABOLIC PANEL STAT 10/02/2024 4:01 PM MARKETING TRAFFIC COORDINATOR POC BLOOD GAS AND CHEMISTRIES, ARTERIAL Routine 10/02/2024 2:30 PM MARKETING TRAFFIC COORDINATOR FL FLUOROSCOPY < 1 HOUR IP Routine 10/02/2024 2:00 PM MARKETING TRAFFIC COORDINATOR SURGICAL PATHOLOGY Routine 10/02/2024 12 :15 PM MARKETING TRAFFIC COORDINATOR POC BLOOD GAS AND CHEMISTRIES, ARTERIAL Routine 10/02/2024 10:43 AM MARKETING TRAFFIC COORDINATOR ANESTHESIA ARTERIAL LINE PLACEMENT Routine 10/02/2024 8:32 AM MARKETING TRAFFIC COORDINATOR ANESTHESIA INTUBATION Routine 10/02/2024 8:31 AM MARKETING TRAFFIC COORDINATOR SPINAL CORD MONITORING 7:29 AM MARKETING TRAFFIC COORDINATOR Thoracic myelopathy Case Notes [email or web address] Celine via email add Dr. David HEBERT LAMINECTOMY THORACIC DECOMPRESSION 10/02/2024 7:29 AM MARKETING TRAFFIC COORDINATOR Thoracic myelopathy Case Notes [email or web address] [email or web address] via email add Dr. David HEBERT FUSION SPINAL - POSTERIOR LUMBAR/THORACIC WITH INSTRUMENTATION 10/02/2024 7:29 AM MARKETING TRAFFIC COORDINATOR Thoracic myelopathy Case Notes [email or web address] [email or web address] via email add Dr. David HEBERT TYPE AND SCREEN STAT 10/02/2024 6:18 AM MARKETING TRAFFIC COORDINATOR EGFR Routine 09/13/2024 11:37 AM CDT Thoracic [...] Months Results * eGFR (10/13/2024 8:12 PM MARKETING TRAFFIC COORDINATOR) eGFR 60 >=60 mL/min/1. 73 m2 Comment: [...] last reviewed 2021. Blood 10/13/2024 8:12 PM MARKETING TRAFFIC COORDINATOR 10/13/2024 8:37 PM MARKETING TRAFFIC COORDINATOR us James Robles MD LAB BLOOD ORDERABLES Final Resu lt [facility] Department of Laboratories [place], [place] [id number] * Protime-INR (10/13/2024 8:12 PM MARKETING TRAFFIC COORDINATOR) PT 11.5 9.7 - 13.0 sec INR 1.06 0.90 - 1.20 [facility] Comment: Interpretive data Oral anticoagulant therapeutic ranges: Venous thromboembolism prophylaxis or treatment: 2.0-3.0 CARDIOLOGY Standard range: 2.0-3.0 High-intensity range: 2.5-3.5 Refer to indication-specific guidelines for appropriate target ranges for prosthetic heart valve replacement. Current interpretive data was last revised on 2019. Blood 10/13/2024 8:12 PM MARKETING TRAFFIC COORDINATOR 10/13/2024 8:32 PM MARKETING TRAFFIC COORDINATOR Narrative [facility] - 10/13/2024 8:38 PM MARKETING TRAFFIC COORDINATOR Baseline prior to apixaban initiation. Meghan Whyte DIGITAL MARKETING ANALYST LAB BLOOD ORDERABLES [facility] al Result [facility] [place] [address] * (ABNORMAL) CBC without differential (10/13/2024 8:12 PM MARKETING TRAFFIC COORDINATOR) WBC 17.1(H) 3.8 - 9.9 K/cumm Hgb 12.1(L) 13.0 - 17.5 g/dL [facility] Hct 37.0(L) 38.9 - 50.3 % [facility] Plt 214 150 - 400 K/cumm [facility] MPV 10.1 9.1 - 12.3 fL [facility] RBC 3.76(L) 4.30 - 5.80 M/cumm [facility] MCV 98.4(H) 81.3 - 96.4 fL [facility] MCH 32.2 27.1 - 33.3 pg [facility] MCHC 32.7 32.3 - 35.7 g/dL [facility] RDW CV 14.6 11.1 - 14.9 % [facility] RDW SD 52.2(H) 35.7 - 48.1 fL [facility] NRBC abs 0.00 0.00 - 0.01 K/cumm [facility] Blood 10/13/2024 8:12 PM MARKETING TRAFFIC COORDINATOR 10/13/2024 8:26 PM MARKETING TRAFFIC COORDINATOR us Maria Isabel Unger NP LAB BLOOD ORDERABLES Final Result Performing Organization Address [facility] Co de Phone Number [facility] Department [place] [address] * (ABNORMAL) Hepatic function panel (10/13/2024 8:12 PM MARKETING TRAFFIC COORDINATOR) [facility] Bilirubin, total 0.2 0.1 - 1.2 mg/dL Bilirubin, direct <0.2 0.1 - 0.3 mg/dL [facility] Protein, pl 5.8(L) 6.5 - 8.5 g/dL [facility] Albumin 3.4(L) 3.5 - 5.0 g/dL [facility] Alk phos 59 40 - 130 Units/L [facility] ALT 28 7 - 55 Units/L [facility] AST 26 10 - 50 Units/L [facility] Comment:Hemolyzed; result ma y be falsely elevated Blood 10/13/2024 8:12 PM MARKETING TRAFFIC COORDINATOR 10/13/2024 8:23 PM MARKETING TRAFFIC COORDINATOR us James Robles MD LAB BLOOD ORDERABLES Final Resu lt Performing Organization Address [facility] Co de Phone Number [facility] [place] [address] * (ABNORMAL) Basic metabolic panel (10/13/2024 8:12 PM MARKETING TRAFFIC COORDINATOR) [facility] Sodium 140 135 - 145 mmol/L Potassium, pl 4.7 3.3 - 4.9 mmol/L [facility] Comment:Hemolyzed; Potassium value may be falsely elevated by as much as 0.3-0.5 mmol/L. Suggest redraw and reanalysis. Chloride 107 97 - 110 mmol/L [facility] CO2 23 22 - 32 mmol/L [facility] Anion gap 10 2 - 15 mmol/L [facility] BUN 26(H) 6 - 25 mg/dL [facility] Creatinine 1.25 0.80 - 1.30 mg/dL [facility] Glucose 96 70 - 199 mg/dL [facility] Comment: Interpretive Data Fasting glucose [...] 2022. Calcium 8.9 8.5 - 10.3 mg/dL [facility] Blood 10/13/2024 8:12 PM MARKETING TRAFFIC COORDINATOR 10/13/2024 8:23 PM MARKETING TRAFFIC COORDINATOR us James Robles MD LAB BLOOD ORDERABLES Final Resu lt Performing Organization Address City/State/[facility] Co de Phone Number [facility] Department of Laboratories [place], [place] [id number] * US Vein Duplex Lower Extremity Bilateral Complete (10/13/2024 9:43 AM MARKETING TRAFFIC COORDINATOR) Anatomical Region Laterality Modality Vascular Bilateral Ultrasound 10/13/2024 9:05 AM MARKETING TRAFFIC COORDINATOR Narrative 10/13/2024 1:52 PM MARKETING TRAFFIC COORDINATOR [facility] [employer] - Department of Vascular Surgery, Vascular Laboratory [address] [place] [address] Lower Extremity Venous Ultrasound Report Patient Name: LILI DELGADO F : 1950 (74y ) Study Date: 10/13/2024 9:05:32 AM Gender: M Tech: SAGAR Location: [id number] Ref Provider: MEGHAN WHYTE Quality: Adequate Order [...] thrombus size per hematology - FINDINGS: Performing Naprapath: Jessica Aguilar RVT. Right: Duplex scan reveals [...] Tyshawn Mullins MD FACS 10/13/2024 1:52:11 PM MARKETING TRAFFIC COORDINATOR Procedure Note Tyshawn Mullins MD - 10/13/2024 [employer] - Department of Vascular Surgery,Vascular Laboratory [address] [place] [address] Lower Extremity Venous Ultrasound Report Patient Name: LILI DELGADO F : 1950 (74y ) Study Date: 10/13/2024 9:05:32 AM Gender: M Tech: MV Location: [id number] Ref Provider: MEGHAN WHYTE Quality: Adequate Order [...] thrombus size per hematology - FINDINGS: Performing Naprapath: Jessica Aguilar RVT. Right: Duplex scan reveals [...] Tyshawn Mullins MD FACS 10/13/2024 1:52:11 PM MARKETING TRAFFIC COORDINATOR Meghan Whyte NP IMG US PROCEDURES Final Result * (ABNORMAL) aPTT (10/13/2024 6:24 AM MARKETING TRAFFIC COORDINATOR) aPTT 55(H) 28 - 38 sec Comment: Interpretive Data Heparin therapeutic range: 66.0 - 100.0 seconds. Range based on correlation with therapeutic heparin activity range of 0.3 - 0.7 Units/mL. Current interpretive data was last revised on 2023. Blood 10/13/2024 6:24 AM MARKETING TRAFFIC COORDINATOR 10/13/2024 6:52 AM MARKETING TRAFFIC COORDINATOR Narrative [facility] - 10/13/2024 7:17 AM MARKETING TRAFFIC COORDINATOR STAT PTT timing: - Draw 6 hours [...] ORDERABLES Final Resu lt [facility] [place] [address] * (ABNORMAL) eGFR (10/12/2024 9:40 PM MARKETING TRAFFIC COORDINATOR) Pathologist [facility] eGFR 49(L) >=60 mL/min/1. 73 m2 Comment: [...] last reviewed 2021. Blood 10/12/2024 9:40 PM MARKETING TRAFFIC COORDINATOR 10/12/2024 11:24 PM MARKETING TRAFFIC COORDINATOR James Robles MD LAB BLOOD ORDERABLES Final Resu lt Performing Organization Address [facility] Co de Phone Number [facility] Department [place] [address] * (ABNORMAL) aPTT (10/12/2024 9:40 PM MARKETING TRAFFIC COORDINATOR) aPTT 57(H) 28 - 38 sec Comment: Interpretive Data Heparin therapeutic range: 66.0 - 100.0 seconds. Range based on correlation with therapeutic heparin activity range of 0.3 - 0.7 Units/mL. Current interpretive data was last revised on 2023. Blood 10/12/2024 9:40 PM MARKETING TRAFFIC COORDINATOR 10/12/2024 11:26 PM MARKETING TRAFFIC COORDINATOR Meghan Whyte DIGITAL MARKETING ANALYST LAB BLOOD ORDERABLES Fin al Result Performing Organization Address [facility] Co de Phone Number [facility] Department [place] [address] * (ABNORMAL) CBC without differential (10/12/2024 9:40 PM MARKETING TRAFFIC COORDINATOR) WBC 13.9(H) 3.8 - 9.9 K/cumm Hgb 11.4(L) 13.0 - 17.5 g/dL [facility] Hct 35.0(L) 38.9 - 50.3 % [facility] Plt 232 150 - 400 K/cumm [facility] MPV 10.5 9.1 - 12.3 fL [facility] RBC 3.59(L) 4.30 - 5.80 M/cumm [facility] MCV 97.5(H) 81.3 - 96.4 fL [facility] MCH 31.8 27.1 - 33.3 pg [facility] MCHC 32.6 32.3 - 35.7 g/dL [facility] RDW CV 14.6 11.1 - 14.9 % [facility] RDW SD 51.2(H) 35.7 - 48.1 fL [facility] NRBC abs 0.00 0.00 - 0.01 K/cumm [facility] Blood 10/12/2024 9:40 PM MARKETING TRAFFIC COORDINATOR 10/12/2024 11:24 PM MARKETING TRAFFIC COORDINATOR us Maria Isabel Unger NP LAB BLOOD ORDERABLES Final Result [facility] [place] [address] * (ABNORMAL) Basic metabolic panel (10/12/2024 9:40 PM MARKETING TRAFFIC COORDINATOR) Sodium 144 135 - 145 mmol/L Potassium, pl 4.4 3.3 - 4.9 mmol/L [facility] Chloride 109 97 - 110 mmol/L [facility] CO2 27 22 - 32 mmol/L [facility] Anion gap 8 2 - 15 mmol/L [facility] BUN 28(H) 6 - 25 mg/dL [facility] Creatinine 1.48(H) 0.80 - 1.30 mg/dL [facility] Glucose 110 70 - 199 mg/dL [facility] Comment: Interpretive Data Fasting glucose [...] 2022. Calcium 8.4(L) 8.5 - 10.3 mg/dL [facility] Blood 10/12/2024 9:40 PM MARKETING TRAFFIC COORDINATOR 10/12/2024 11:24 PM MARKETING TRAFFIC COORDINATOR us James Robles MD LAB BLOOD ORDERABLES Final Resu lt [facility] One [facility] [place] [address] * (ABNORMAL) aPTT (10/12/2024 6:21 AM MARKETING TRAFFIC COORDINATOR) aPTT 51(H) 28 - 38 sec Comment: Interpretive Data Heparin therapeutic range: 66.0 - 100.0 seconds. Range based on correlation with therapeutic heparin activity range of 0.3 - 0.7 Units/mL. Current interpretive data was last revised on 2023. Blood 10/12/2024 6:21 AM MARKETING TRAFFIC COORDINATOR 10/12/2024 6:49 AM MARKETING TRAFFIC COORDINATOR Narrative [facility] - 10/12/2024 6:56 AM MARKETING TRAFFIC COORDINATOR STAT PTT timing: - Draw 6 hours [...] BLOOD ORDERABLES Final Resu Performing Organization Address [facility] Co de Phone Number REYNALDO MAHARAJ Vee [facility] [place] [address] * (ABNORMAL) aPTT (10/12/2024 12:54 AM MARKETING TRAFFIC COORDINATOR) [facility] aPTT 51(H) 28 - 38 sec Comment: Interpretive Data Heparin therapeutic range: 66.0 - 100.0 seconds. Range based on correlation with therapeutic heparin activity range of 0.3 - 0.7 Units/mL. Current interpretive data was last revised on 2023. Blood 10/12/2024 12:5 4 AM MARKETING TRAFFIC COORDINATOR 10/12/2024 1:09 AM MARKETING TRAFFIC COORDINATOR Narrative [facility] - 10/12/2024 1:17 AM MARKETING TRAFFIC COORDINATOR STAT PTT timing: - Draw 6 hours [...] ORDERABLES Final Resu lt Performing Organization Address [facility]/ZIP Co de Phone Number REYNALDO MAHARAJ Vee [facility] [place] [address] * (ABNORMAL) eGFR (10/11/2024 9:52 PM MARKETING TRAFFIC COORDINATOR) [facility] eGFR 42(L) >=60 mL/min/1. 73 m2 [...] last reviewed 2021. Blood 10/11/2024 9:52 PM MARKETING TRAFFIC COORDINATOR 10/11/2024 11:34 PM MARKETING TRAFFIC COORDINATOR us James Robles MD LAB BLOOD ORDERABLES Final Resu lt [facility] One [facility] [place] [address] * (ABNORMAL) CBC without differential (10/11/2024 9:52 PM MARKETING TRAFFIC COORDINATOR) WBC 15.3(H) 3.8 - 9.9 K/cumm Hgb 10.9(L) 13.0 - 17.5 g/dL [facility] Hct 33.4(L) 38.9 - 50.3 % [facility] Plt 234 150 - 400 K/cumm [facility] MPV 10.4 9.1 - 12.3 fL [facility] RBC 3.47(L) 4.30 - 5.80 M/cumm [facility] MCV 96.3 81.3 - 96.4 fL [facility] MCH 31.4 27.1 - 33.3 pg [facility] MCHC 32.6 32.3 - 35.7 g/dL [facility] RDW CV 14.3 11.1 - 14.9 % [facility] RDW SD 49.6(H) 35.7 - 48.1 fL [facility] NRBC abs 0.00 0.00 - 0.01 K/cumm [facility] Blood 10/11/2024 9:52 PM MARKETING TRAFFIC COORDINATOR 10/11/2024 11:34 PM MARKETING TRAFFIC COORDINATOR us Maria Isabel Unger NP LAB BLOOD ORDERABLES Final Result [facility] One [facility] [place] [address] * (ABNORMAL) Basic metabolic panel (10/11/2024 9:52 PM MARKETING TRAFFIC COORDINATOR) Sodium 141 135 - 145 mmol/L Potassium, pl 4.6 3.3 - 4.9 mmol/L [facility] Chloride 107 97 - 110 mmol/L [facility] CO2 27 22 - 32 mmol/L [facility] Anion gap 7 2 - 15 mmol/L [facility] BUN 35(H) 6 - 25 mg/dL [facility] Creatinine 1.68(H) 0.80 - 1.30 mg/dL [facility] Glucose 115 70 - 199 mg/dL [facility] Comment: Interpretive Data Fasting glucose [...] 2022. Calcium 8.1(L) 8.5 - 10.3 mg/dL [facility] Blood 10/11/2024 9:52 PM MARKETING TRAFFIC COORDINATOR 10/11/2024 11:34 PM MARKETING TRAFFIC COORDINATOR James Robles MD LAB BLOOD ORDERABLES Final Resu lt Performing Organization Address [facility]/ZIP Co de Phone Number [facility] [place] [address] * aPTT (10/11/2024 5:30 PM MARKETING TRAFFIC COORDINATOR) aPTT 33 28 - 38 sec Comment: Interpretive Data Heparin therapeutic range: 66.0 - 100.0 seconds. Range based on correlation with therapeutic heparin activity range of 0.3 - 0.7 Units/mL. Current interpretive data was last revised on 2023. Blood 10/11/2024 5:30 PM MARKETING TRAFFIC COORDINATOR 10/11/2024 5:59 PM MARKETING TRAFFIC COORDINATOR Narrative [facility] - 10/11/2024 6:07 PM MARKETING TRAFFIC COORDINATOR STAT PTT timing: - Draw 6 hours [...] ORDERABLES Final Resu lt Performing Organization Address [facility]/ZIP Co de Phone Number [facility] [place] [address] * (ABNORMAL) eGFR (10/10/2024 8:04 PM MARKETING TRAFFIC COORDINATOR) Pathologist [facility] eGFR 45(L) >=60 mL/min/1. 73 m2 Comment: [...] last reviewed 2021. Blood 10/10/2024 8:04 PM MARKETING TRAFFIC COORDINATOR 10/10/2024 8:34 PM MARKETING TRAFFIC COORDINATOR us James Robles MD LAB BLOOD ORDERABLES Final Resu lt [facility] One [facility] [place] [address] * (ABNORMAL) aPTT (10/10/2024 8:04 PM MARKETING TRAFFIC COORDINATOR) aPTT 22(L) 28 - 38 sec Comment: Interpretive Data Heparin therapeutic range: 66.0 - 100.0 seconds. Range based on correlation with therapeutic heparin activity range of 0.3 - 0.7 Units/mL. Current interpretive data was last revised on 2023. Blood 10/10/2024 8:04 PM MARKETING TRAFFIC COORDINATOR 10/10/2024 8:24 PM MARKETING TRAFFIC COORDINATOR James Robles MD LAB BLOOD ORDERABLES Final Resu lt [facility] One [facility] [place] [address] * (ABNORMAL) aPTT (10/10/2024 8:04 PM MARKETING TRAFFIC COORDINATOR) aPTT 22(L) 28 - 38 sec Comment: Interpretive Data Heparin therapeutic range: 66.0 - 100.0 seconds. Range based on correlation with therapeutic heparin activity range of 0.3 - 0.7 Units/mL. Current interpretive data was last revised on 2023. Blood 10/10/2024 8:04 PM MARKETING TRAFFIC COORDINATOR 10/10/2024 8:24 PM MARKETING TRAFFIC COORDINATOR Narrative [facility] - 10/10/2024 8:33 PM MARKETING TRAFFIC COORDINATOR STAT PTT timing: - Draw 6 hours [...] MD LAB BLOOD ORDERABLES Final Resu lt [facility] One [facility] [place] [address] * Protime-INR (10/10/2024 8:04 PM MARKETING TRAFFIC COORDINATOR) PT 12.0 9.7 - 13.0 sec INR 1.11 0.90 - 1.20 [facility] Comment: Interpretive data Oral anticoagulant therapeutic ranges: Venous thromboembolism prophylaxis or treatment: 2.0-3.0 CARDIOLOGY Standard range: 2.0-3.0 High-intensity range: 2.5-3.5 Refer to indication-specific guidelines for appropriate target ranges for prosthetic heart valve replacement. Current interpretive data was last revised on 2019. Blood 10/10/2024 8:04 PM MARKETING TRAFFIC COORDINATOR 10/10/2024 8:24 PM MARKETING TRAFFIC COORDINATOR us James Robles MD LAB BLOOD ORDERABLES Final Resu lt Performing Organization Address City/[facility]/ZIP Co de Phone Number [facility] One [facility] [place] [address] * (ABNORMAL) CBC without differential (10/10/2024 8:04 PM MARKETING TRAFFIC COORDINATOR) WBC 17.1(H) 3.8 - 9.9 K/cumm Hgb 11.6(L) 13.0 - 17.5 g/dL [facility] Hct 34.3(L) 38.9 - 50.3 % [facility] Plt 260 150 - 400 K/cumm [facility] MPV 10.3 9.1 - 12.3 fL [facility] RBC 3.62(L) 4.30 - 5.80 M/cumm [facility] MCV 94.8 81.3 - 96.4 fL [facility] MCH 32.0 27.1 - 33.3 pg [facility] MCHC 33.8 32.3 - 35.7 g/dL [facility] RDW CV 14.2 11.1 - 14.9 % [facility] RDW SD 48.3(H) 35.7 - 48.1 fL [facility] NRBC abs 0.00 0.00 - 0.01 K/cumm [facility] Blood 10/10/2024 8:04 PM MARKETING TRAFFIC COORDINATOR 10/10/2024 8:34 PM MARKETING TRAFFIC COORDINATOR us Maria Isabel Unger NP LAB BLOOD ORDERABLES Final Result [facility] [place] [address] * (ABNORMAL) Basic metabolic panel (10/10/2024 8:04 PM MARKETING TRAFFIC COORDINATOR) Sodium 140 135 - 145 mmol/L Potassium, pl 4.6 3.3 - 4.9 mmol/L [facility] Chloride 105 97 - 110 mmol/L [facility] CO2 24 22 - 32 mmol/L [facility] Anion gap 11 2 - 15 mmol/L [facility] BUN 32(H) 6 - 25 mg/dL [facility] Creatinine 1.59(H) 0.80 - 1.30 mg/dL [facility] Glucose 108 70 - 199 mg/dL [facility] Comment: Interpretive Data Fasting glucose [...] 2022. Calcium 8.4(L) 8.5 - 10.3 mg/dL [facility] Blood 10/10/2024 8:04 PM MARKETING TRAFFIC COORDINATOR 10/10/2024 8:34 PM MARKETING TRAFFIC COORDINATOR us James Robles MD LAB BLOOD ORDERABLES Final Resu lt Performing Organization Address [facility] Co de Phone Number RE[facility]LDO [facility] [place] [address] * (ABNORMAL) CBC without differential (10/10/2024 11:51 AM MARKETING TRAFFIC COORDINATOR) WBC 21.0(H) 3.8 - 9.9 K/cumm Hgb 12.0(L) 13.0 - 17.5 g/dL [facility] Hct 36.7(L) 38.9 - 50.3 % [facility] Plt 272 150 - 400 K/cumm [facility] MPV 10.4 9.1 - 12.3 fL [facility] RBC 3.84(L) 4.30 - 5.80 M/cumm [facility] MCV 95.6 81.3 - 96.4 fL [facility] MCH 31.3 27.1 - 33.3 pg [facility] MCHC 32.7 32.3 - 35.7 g/dL [facility] RDW CV 14.0 11.1 - 14.9 % [facility] RDW SD 47.8 35.7 - 48.1 fL [facility] NRBC abs 0.00 0.00 - 0.01 K/cumm [facility] Blood 10/10/2024 11:5 1 AM MARKETING TRAFFIC COORDINATOR 10/10/2024 12:26 PM MARKETING TRAFFIC COORDINATOR Narrative [facility] - 10/10/2024 12:37 PM MARKETING TRAFFIC COORDINATOR Baseline prior to heparin initiation us James Robles MD LAB BLOOD ORDERABLES Final Resu lt [facility] One [facility] [place] [address] * (ABNORMAL) aPTT (10/10/2024 11:36 AM MARKETING TRAFFIC COORDINATOR) aPTT 23(L) 28 - 38 sec Comment: Interpretive Data Heparin therapeutic range: 66.0 - 100.0 seconds. Range based on correlation with therapeutic heparin activity range of 0.3 - 0.7 Units/mL. Current interpretive data was last revised on 2023. Blood 10/10/2024 11:3 6 AM MARKETING TRAFFIC COORDINATOR 10/10/2024 11:47 AM MARKETING TRAFFIC COORDINATOR Narrative [facility] - 10/10/2024 12:16 PM MARKETING TRAFFIC COORDINATOR Baseline prior to heparin initiation us James Robles MD LAB BLOOD ORDERABLES Final Resu lt [id number] [place] [address] * Protime-INR (10/10/2024 11:36 AM MARKETING TRAFFIC COORDINATOR) Pathologist [facility] PT 11.3 9.7 - 13.0 sec INR 1.05 0.90 - 1.20 [facility] Comment: Interpretive data Oral anticoagulant therapeutic ranges: Venous thromboembolism prophylaxis or treatment: 2.0-3.0 CARDIOLOGY Standard range: 2.0-3.0 High-intensity range: 2.5-3.5 Refer to indication-specific guidelines for appropriate target ranges for prosthetic heart valve replacement. Current interpretive data was last revised on 2019. Blood 10/10/2024 11:3 6 AM MARKETING TRAFFIC COORDINATOR 10/10/2024 11:47 AM MARKETING TRAFFIC COORDINATOR Narrative [facility] - 10/10/2024 12:16 PM MARKETING TRAFFIC COORDINATOR Baseline prior to heparin initiation James Robles MD LAB BLOOD ORDERABLES Final Resu lt [facility] [place] [address] * (ABNORMAL) eGFR (10/10/2024 3:19 AM MARKETING TRAFFIC COORDINATOR) Pathologist [facility] eGFR 53(L) >=60 mL/min/1. 73 m2 Comment: [...] last reviewed 2021. Blood 10/10/2024 3:19 AM MARKETING TRAFFIC COORDINATOR 10/10/2024 5:57 AM MARKETING TRAFFIC COORDINATOR us James Robles MD LAB BLOOD ORDERABLES Final Resu lt [facility] One [facility] [place] [address] * (ABNORMAL) CBC without differential (10/10/2024 3:19 AM MARKETING TRAFFIC COORDINATOR) WBC 18.6(H) 3.8 - 9.9 K/cumm Hgb 11.7(L) 13.0 - 17.5 g/dL [facility] Hct 35.3(L) 38.9 - 50.3 % [facility] Plt 234 150 - 400 K/cumm [facility] MPV 10.4 9.1 - 12.3 fL [facility] RBC 3.69(L) 4.30 - 5.80 M/cumm [facility] MCV 95.7 81.3 - 96.4 fL [facility] MCH 31.7 27.1 - 33.3 pg [facility] MCHC 33.1 32.3 - 35.7 g/dL [facility] RDW CV 14.1 11.1 - 14.9 % [facility] RDW SD 48.1 35.7 - 48.1 fL [facility] NRBC abs 0.00 0.00 - 0.01 K/cumm [facility] Blood 10/10/2024 3:19 AM MARKETING TRAFFIC COORDINATOR 10/10/2024 6:01 AM MARKETING TRAFFIC COORDINATOR us Maria Isabel Unger NP LAB BLOOD ORDERABLES Final Result Performing Organization Address [facility]/ZIP Co de Phone Number [facility] [place] [address] * (ABNORMAL) Basic metabolic panel (10/10/2024 3:19 AM MARKETING TRAFFIC COORDINATOR) Pathologist [facility] Sodium 141 135 - 145 mmol/L Potassium, pl 4.2 3.3 - 4.9 mmol/L [facility] Chloride 106 97 - 110 mmol/L [facility] CO2 27 22 - 32 mmol/L [facility] Anion gap 8 2 - 15 mmol/L [facility] BUN 34(H) 6 - 25 mg/dL [facility] Creatinine 1.38(H) 0.80 - 1.30 mg/dL [facility] Glucose 95 70 - 199 mg/dL [facility] Comment: Interpretive Data Fasting glucose [...] 2022. Calcium 8.5 8.5 - 10.3 mg/dL [facility] Blood 10/10/2024 3:19 AM MARKETING TRAFFIC COORDINATOR 10/10/2024 5:57 AM MARKETING TRAFFIC COORDINATOR us James Robles MD LAB BLOOD ORDERABLES Final Resu lt Performing Organization Address [facility]/ZIP Co de Phone Number [facility] [place] [address] * POCT glucose (10/09/2024 8:41 PM MARKETING TRAFFIC COORDINATOR) Glucose, POC 141 70 - 199 mg/dL Blood 10/09/2024 8:41 PM MARKETING TRAFFIC COORDINATOR 10/09/2024 8:41 PM MARKETING TRAFFIC COORDINATOR us James Robles MD LAB POCT ORDERABLES - DEVICE Fi nal Result [facility] V[facility] Department of Laboratories [place] [phone] * US Vein Duplex Lower Extremity Bilateral Complete (10/09/2024 10:08 AM MARKETING TRAFFIC COORDINATOR) Anatomical Region Laterality Modality Vascular Bilateral Ultrasound 10/09/2024 9:49 AM MARKETING TRAFFIC COORDINATOR Narrative 10/09/2024 11:51 AM MARKETING TRAFFIC COORDINATOR [facility] - Department of Vascular Surgery, Vascular Laboratory [address] [place] [id number] Lower Extremity Venous Ultrasound Report Patient Name: LILI DELGADO F : 1950 (74y ) Study Date: 10/09/2024 9:49:45 AM Gender: M Tech: AL Location: [id number] Ref Provider: OSIRIS OLIVEIRA ?Quality: Adequate Order [...] Pain in Leg, Right - FINDINGS: Performing Naprapath: Niurka Krishna RVT. Right: Duplex scan reveals [...] Tyshawn Mullins MD [facility] 2024-10-09 11:50:17 MARKETING TRAFFIC COORDINATOR Procedure Note Tyshawn Mullins MD - 10/09/2024 [facility] - Department of Vascular Surgery,Vascular Laboratory [address] [place] [address] Lower Extremity Venous Ultrasound Report Patient Name: LILI DELGADO F : 1950 (74y ) Study Date: 10/09/2024 9:49:45 AM Gender: M Tech: [place] Location: [id number] Ref Provider: OSIRIS OLIVEIRA Quality: Adequate Order [...] Pain in Leg, Right - FINDINGS: Performing Naprapath: Niurka Krishna RVT. Right: Duplex scan reveals [...] Tyshawn Mullins MD [facility] 2024-10-09 11:50:17 MARKETING TRAFFIC COORDINATOR us Osiris Oliveira NP IMG US PROCEDURES Final Result * XR Chest 1 View (10/09/2024 7:55 AM MARKETING TRAFFIC COORDINATOR) Anatomical Region Laterality Modality Body, Chest N/A Digital Radiogra phy 10/09/2024 1:25 PM MARKETING TRAFFIC COORDINATOR Impressions 10/09/2024 4:11 PM MARKETING TRAFFIC COORDINATOR 1. ??Interval increase in left lung base atelectasis. Dictated by: Gabriel Warner M.D. The radiology attending physician has personally reviewed this study, and had reviewed and/or edited this written report and agrees with it. Electronically signed by: Austin Olsen M.D. Narrative 10/09/2024 4:11 PM MARKETING TRAFFIC COORDINATOR EXAMINATION: 1 view chest radiograph History: 74-year-old [...] signed by: Austin Olsen M.D. Osiris Oliveira DIGITAL MARKETING ANALYST IMG XR PROCEDURES Final Result * (ABNORMAL) eGFR (10/08/2024 10:15 PM MARKETING TRAFFIC COORDINATOR) eGFR 55(L) >=60 mL/min/1. 73 m2 Comment: [...] Inclusion of Race in Diagnosing Kidney Disease, KAMILASEliza 2020). The CKD-EPI equation should not be used for patients with unstable renal function and has not been validated in children and those over 70. Current interpretive data was last reviewed 2021. Blood 10/08/2024 10:1 5 PM MARKETING TRAFFIC COORDINATOR 10/08/2024 11:56 PM MARKETING TRAFFIC COORDINATOR us Brianna Martínez DIGITAL MARKETING ANALYST LAB BLOOD ORDERABLES Cammy l Result Performing Organization Address City/[facility]/ZIP Co de Phone Number [facility] [place] [address] * (ABNORMAL) CBC without differential (10/08/2024 10:15 PM MARKETING TRAFFIC COORDINATOR) WBC 19.8(H) 3.8 - 9.9 K/cumm Hgb 11.2(L) 13.0 - 17.5 g/dL [facility] Hct 32.9(L) 38.9 - 50.3 % [facility] Plt 264 150 - 400 K/cumm [facility] MPV 10.5 9.1 - 12.3 fL [facility] RBC 3.57(L) 4.30 - 5.80 M/cumm [facility] MCV 92.2 81.3 - 96.4 fL [facility] MCH 31.4 27.1 - 33.3 pg [facility] MCHC 34.0 32.3 - 35.7 g/dL [facility] RDW CV 13.7 11.1 - 14.9 % [facility] RDW SD 45.1 35.7 - 48.1 fL [facility] NRBC abs 0.02(H) 0.00 - 0.01 K/cumm [facility] Blood 10/08/2024 10:1 5 PM MARKETING TRAFFIC COORDINATOR 10/08/2024 11:57 PM MARKETING TRAFFIC COORDINATOR us Maria Isabel Unger DIGITAL MARKETING ANALYST LAB BLOOD ORDERABLES Final Result Performing Organization Address [facility]/ZIP Co de Phone Number [facility] [place] [address] * Phosphorus (10/08/2024 10:15 PM MARKETING TRAFFIC COORDINATOR) [facility] Phosphorus, pl 3.1 2.3 - 4.5 mg/dL Blood 10/08/2024 10:1 5 PM MARKETING TRAFFIC COORDINATOR 10/08/2024 11:56 PM MARKETING TRAFFIC COORDINATOR Meddlene Mauricio DIGITAL MARKETING ANALYST LAB BLOOD ORDERABLES Cammy l Result Performing Organization Address City/[facility] de Phone Number [facility] [place] [address] * Magnesium (10/08/2024 10:15 PM MARKETING TRAFFIC COORDINATOR) [facility] Magnesium 2.3 1.4 - 2.5 mg/dL Blood 10/08/2024 10:1 5 PM MARKETING TRAFFIC COORDINATOR 10/08/2024 11:56 PM MARKETING TRAFFIC COORDINATOR Meddlene Mauricio DIGITAL MARKETING ANALYST LAB BLOOD ORDERABLES Cammy l Result Performing Organization Address [facility] de Phone Number [facility] [place] [address] * (ABNORMAL) Comprehensive metabolic panel (10/08/2024 10:15 PM MARKETING TRAFFIC COORDINATOR) [facility] Sodium 141 135 - 145 mmol/L Potassium, pl 4.6 3.3 - 4.9 mmol/L [facility] Chloride 107 97 - 110 mmol/L [facility] CO2 25 22 - 32 mmol/L [facility] Anion gap 9 2 - 15 mmol/L [facility] BUN 33(H) 6 - 25 mg/dL [facility] Creatinine 1.33(H) 0.80 - 1.30 mg/dL [facility] Glucose 108 70 - 199 mg/dL [facility] Comment: Interpretive Data Fasting glucose [...] 2022. Calcium 8.6 8.5 - 10.3 mg/dL [facility] Bilirubin, total 0.3 0.1 - 1.2 mg/dL [facility] Protein, pl 4.8(L) 6.5 - 8.5 g/dL [facility] Albumin 2.9(L) 3.5 - 5.0 g/dL [facility] Alk phos 49 40 - 130 Units/L [facility] ALT 39 7 - 55 Units/L [facility] AST 19 10 - 50 Units/L [facility] Blood 10/08/2024 10:1 5 PM MARKETING TRAFFIC COORDINATOR 10/08/2024 11:56 PM MARKETING TRAFFIC COORDINATOR Brianna Martínez DIGITAL MARKETING ANALYST LAB BLOOD ORDERABLES Cammy l Result Performing Organization Address [facility] Co de Phone Number [facility] [place] [address] * Troponin I high-sensitivity (10/08/2024 11:36 AM MARKETING TRAFFIC COORDINATOR) Trop I hs 30 <=35 ng/L Comment: Interpretive Data For further hscTnI resources including the diagnostic algorithm and an aid in interpretation, copy and paste this link: [email or web address].testcatalog.org/show/[email or web address] Current Interpretive Data last revised 2020. Blood 10/08/2024 11:3 6 AM MARKETING TRAFFIC COORDINATOR 10/08/2024 11:44 AM MARKETING TRAFFIC COORDINATOR Brianna Martínez DIGITAL MARKETING ANALYST LAB BLOOD ORDERABLES Cammy l Result Performing Organization Address [facility]/ZIP Co de Phone Number [facility] [place] [address] * (ABNORMAL) Lactate (10/08/2024 8:38 AM MARKETING TRAFFIC COORDINATOR) Lactate 2.9(H) 0.7 - 2.0 mmol/L Blood 10/08/2024 8:38 AM MARKETING TRAFFIC COORDINATOR 10/08/2024 11:44 AM MARKETING TRAFFIC COORDINATOR us Brianna Martínez NP LAB BLOOD ORDERABLES Cammy ramos Result [facility] One [facility] [place] [address] * eGFR (10/07/2024 10:19 PM MARKETING TRAFFIC COORDINATOR) eGFR 62 >=60 mL/min/1. 73 m2 Comment: [...] reviewed 2021. Blood 10/07/2024 10:1 9 PM MARKETING TRAFFIC COORDINATOR 10/07/2024 11:24 PM MARKETING TRAFFIC COORDINATOR James Robles MD LAB BLOOD ORDERABLES Final Resu lt [facility] [place] [address] * (ABNORMAL) CBC without differential (10/07/2024 10:19 PM MARKETING TRAFFIC COORDINATOR) Pathologist [facility] WBC 17.2(H) 3.8 - 9.9 K/cumm Hgb 11.4(L) 13.0 - 17.5 g/dL [facility] Hct 32.7(L) 38.9 - 50.3 % [facility] Plt 264 150 - 400 K/cumm [facility] MPV 10.6 9.1 - 12.3 fL [facility] [facility] RBC 3.58(L) 4.30 - 5.80 M/cumm [facility] MCV 91.3 81.3 - 96.4 fL [facility] MCH 31.8 27.1 - 33.3 pg [facility] MCHC 34.9 32.3 - 35.7 g/dL [facility] RDW CV 13.2 11.1 - 14.9 % [facility] RDW SD 43.6 35.7 - 48.1 fL [facility] NRBC abs 0.00 0.00 - 0.01 K/cumm [facility] Blood 10/07/2024 10:1 9 PM MARKETING TRAFFIC COORDINATOR 10/07/2024 11:24 PM MARKETING TRAFFIC COORDINATOR us Maria Isabel Unger NP LAB BLOOD ORDERABLES Final Result [facility] [place] [address] * (ABNORMAL) Basic metabolic panel (10/07/2024 10:19 PM MARKETING TRAFFIC COORDINATOR) Pathologist [facility] Sodium 142 135 - 145 mmol/L Potassium, pl 4.5 3.3 - 4.9 mmol/L [facility] Chloride 107 97 - 110 mmol/L [facility] CO2 26 22 - 32 mmol/L [facility] Anion gap 9 2 - 15 mmol/L [facility] BUN 33(H) 6 - 25 mg/dL [facility] Creatinine 1.21 0.80 - 1.30 mg/dL [facility] Glucose 140 70 - 199 mg/dL [facility] Comment: Interpretive Data Fasting glucose [...] 2022. Calcium 8.5 8.5 - 10.3 mg/dL [facility] Blood 10/07/2024 10:1 9 PM MARKETING TRAFFIC COORDINATOR 10/07/2024 11:24 PM MARKETING TRAFFIC COORDINATOR us James Robles MD LAB BLOOD ORDERABLES Final Resu lt [facility] [place] [address] * (ABNORMAL) Lactate, whole blood (10/07/2024 9:09 AM MARKETING TRAFFIC COORDINATOR) Lactate, bld 3.4(H) 0.7 - 2.0 mmol/L Blood 10/07/2024 9:09 AM MARKETING TRAFFIC COORDINATOR 10/07/2024 9:15 AM MARKETING TRAFFIC COORDINATOR us Brianna Martínez NP LAB BLOOD ORDERABLES Cammy l Result [facility] [place] [address] * (ABNORMAL) Urinalysis reflex to microscopic and culture Urine (10/07/2024 5:37 AM MARKETING TRAFFIC COORDINATOR) Color, ur Straw Yellow Clarity, ur Clear Clear [facility] Specific gravity, ur 1.013 1.003 - 1.030 [facility] pH, urine 7.0 [facility] Comment: Interpretive Data ? Urine pH is affected by diet, medications, systemic acid-base disturbances, and renal tubular function. ??pH may affect urinary stone formation. ??For example, urine pH below 6.0 may help reduce the tendency for calcium phosphate stones and pH greater than 6.0 may reduce the tendency for uric acid stone formation. Source: [facility] Current Interpretive Data was last revised on 2017 Protein, ur ql Negative Negative [facility] Glucose, ur ql Negative Negative [facility] Ketones, ur Negative Negative [facility] Bilirubin, ur Negative Negative [facility] Blood, ur Trace(A) Negative [facility] Urobilinogen, ur <2.0 <2.0 mg/dL [facility] Nitrite, ur Negative Negative [facility] Leukocyte esterase, ur Negative Negative [facility] UA reflex comment Reflex to microscopic UA will be performed. [facility] Urine 10/07/2024 5:37 AM MARKETING TRAFFIC COORDINATOR 10/07/2024 5:46 AM MARKETING TRAFFIC COORDINATOR James Robles MD LAB MICROBIOLOGY - GENERAL RAYMOND JEFFERY Final Result [facility] [place] [address] * Blood culture Blood (10/07/2024 5:37 AM MARKETING TRAFFIC COORDINATOR) Report Final Report: No growth Blood 10/07/2024 5:37 AM MARKETING TRAFFIC COORDINATOR 10/07/2024 7:00 AM MARKETING TRAFFIC COORDINATOR Narrative [facility] - 10/11/2024 7:00 AM MARKETING TRAFFIC COORDINATOR Collection->Peripheral 1. ?Blood cultures are incubated for [...] organism identification may be performed using the HipGeo Gram-Positive Blood Culture Assay. This assay detects microbial DNA in positive blood culture broth via hybridization of target DNA to capture oligonucleotides on a microarray. This assay has been cleared by the [place] Food and Drug Administration and its performance characteristics have been verified by the [facility] Microbiology [facility]. 5. ?For questions about this culture, contact the Microbiology Laboratory at [phone]. Interpretive data was last revised on 2020. James Robles MD LAB MICROBIOLOGY - GENERAL RAYMOND JEFFERY Final Result [facility] [place] [address] * Blood culture Blood (10/07/2024 5:37 AM MARKETING TRAFFIC COORDINATOR) Report Final Report: No growth Blood 10/07/2024 5:37 AM MARKETING TRAFFIC COORDINATOR 10/07/2024 6:07 AM MARKETING TRAFFIC COORDINATOR Narrative [facility] - 10/11/2024 7:00 AM MARKETING TRAFFIC COORDINATOR Collection->Peripheral 1. ?Blood cultures are incubated for [...] organism identification may be performed using the LightArrowigene Gram-Positive Blood Culture Assay. This assay detects microbial DNA in positive blood culture broth via hybridization of target DNA to capture oligonucleotides on a microarray. This assay has been cleared by the [place] Food and Drug Administration and its performance characteristics have been verified by the [facility]biology [facility]. 5. ?For questions about this culture, contact the Microbiology Laboratory at [phone]. Interpretive data was last revised on 2020. James Robles MD LAB MICROBIOLOGY - GENERAL [facility] Final Result Performing Organization Address City/[facility]/ZIP Co de Phone Number [facility] [place] [address] * (ABNORMAL) Urinalysis, microscopic only (10/07/2024 5:37 AM MARKETING TRAFFIC COORDINATOR) WBC, ur 0-5 0 - 5 /HPF RBC, ur 11-20(A) 0 - 2 /HPF [facility] Mucous, ur Present(A) [facility] Culture Reflex Comment Reflex conditions for urine culture (WBC >10) not met. [facility] Urine 10/07/2024 5:37 AM MARKETING TRAFFIC COORDINATOR 10/07/2024 5:46 AM MARKETING TRAFFIC COORDINATOR James Robles MD LAB URINE ORDERABLES Final Resu lt Performing Organization Address City/[facility]/ZIP Co de Phone Number [facility] [place] [address] * XR Chest 1 View (10/07/2024 5:18 AM MARKETING TRAFFIC COORDINATOR) Anatomical Region Laterality Modality Body, Chest N/A Computed Radiogr aphy 10/07/2024 7:05 AM MARKETING TRAFFIC COORDINATOR Impressions 10/07/2024 7:05 AM MARKETING TRAFFIC COORDINATOR The current study is compared with the prior radiograph dated ??10/02/2024. ??Spine stimulator is present. ??The heart and mediastinal contours are normal. ??There is no mass or consolidation. There is no lymphadenopathy. ??There are no pleural effusions. ??There is no pneumothorax. There is no interval change. Electronically signed by: Lauren Cantrell M.D. Narrative 10/07/2024 7:05 AM MARKETING TRAFFIC COORDINATOR EXAMINATION: 1 view chest radiograph Procedure Note [...] (ABNORMAL) Lactate, whole blood (10/06/2024 9:30 PM MARKETING TRAFFIC COORDINATOR) Pathologist [facility] Lactate, bld 2.7(H) 0.7 - 2.0 mmol/L Blood 10/06/2024 9:30 PM MARKETING TRAFFIC COORDINATOR 10/06/2024 9:30 PM MARKETING TRAFFIC COORDINATOR us Tamanna Porras DIGITAL MARKETING ANALYST LAB BLOOD ORDERABLES Final Resul t [facility] [place] [address] * eGFR (10/06/2024 9:16 PM MARKETING TRAFFIC COORDINATOR) eGFR 61 >=60 mL/min/1. 73 m2 Comment: [...] last reviewed 2021. Blood 10/06/2024 9:16 PM MARKETING TRAFFIC COORDINATOR 10/06/2024 9:34 PM MARKETING TRAFFIC COORDINATOR us James Robles MD LAB BLOOD ORDERABLES Final Resu lt Performing Organization Address City/State/[facility] Co de Phone Number [facility] [place] [address] * (ABNORMAL) CBC without differential (10/06/2024 9:16 PM MARKETING TRAFFIC COORDINATOR) WBC 17.1(H) 3.8 - 9.9 K/cumm Hgb 10.8(L) 13.0 - 17.5 g/dL [facility] Hct 30.7(L) 38.9 - 50.3 % [facility] Plt 256 150 - 400 K/cumm [facility] MPV 10.3 9.1 - 12.3 fL [facility] RBC 3.40(L) 4.30 - 5.80 M/cumm [facility] MCV 90.3 81.3 - 96.4 fL [facility] MCH 31.8 27.1 - 33.3 pg [facility] MCHC 35.2 32.3 - 35.7 g/dL [facility] RDW CV 13.1 11.1 - 14.9 % [facility] RDW SD 43.2 35.7 - 48.1 fL [facility] NRBC abs 0.00 0.00 - 0.01 K/cumm [facility] Blood 10/06/2024 9:16 PM MARKETING TRAFFIC COORDINATOR 10/06/2024 9:34 PM MARKETING TRAFFIC COORDINATOR us Maria Isabel Unger NP LAB BLOOD ORDERABLES Final Result [facility] [place] [address] * (ABNORMAL) Basic metabolic panel (10/06/2024 9:16 PM MARKETING TRAFFIC COORDINATOR) Sodium 140 135 - 145 mmol/L Potassium, pl 4.7 3.3 - 4.9 mmol/L [facility] Chloride 105 97 - 110 mmol/L [facility] CO2 25 22 - 32 mmol/L [facility] Anion gap 10 2 - 15 mmol/L [facility] BUN 32(H) 6 - 25 mg/dL [facility] Creatinine 1.22 0.80 - 1.30 mg/dL [facility] Glucose 152 70 - 199 mg/dL [facility] Comment: Interpretive Data Fasting glucose [...] 2022. Calcium 8.7 8.5 - 10.3 mg/dL [facility] Blood 10/06/2024 9:16 PM MARKETING TRAFFIC COORDINATOR 10/06/2024 9:34 PM MARKETING TRAFFIC COORDINATOR James Robles MD LAB BLOOD ORDERABLES Final Resu lt Performing Organization Address [facility] Co de Phone Number [facility] [place] [address] * eGFR (10/05/2024 10:43 PM MARKETING TRAFFIC COORDINATOR) eGFR 67 >=60 mL/min/1. 73 m2 Comment: [...] reviewed 2021. Blood 10/05/2024 10:4 3 PM MARKETING TRAFFIC COORDINATOR 10/05/2024 11:10 PM MARKETING TRAFFIC COORDINATOR James Robles MD LAB BLOOD ORDERABLES Final Resu lt [facility] [place] [address] * (ABNORMAL) Lactate, whole blood (10/05/2024 10:43 PM MARKETING TRAFFIC COORDINATOR) [facility] Lactate, bld 2.2(H) 0.7 - 2.0 mmol/L Blood 10/05/2024 10:4 3 PM MARKETING TRAFFIC COORDINATOR 10/05/2024 11:07 PM MARKETING TRAFFIC COORDINATOR us Tamanna Porras DIGITAL MARKETING ANALYST LAB BLOOD ORDERABLES Final Resul t Performing Organization Address City/[facility] Co de Phone Number [facility] [place] [address] * (ABNORMAL) CBC without differential (10/05/2024 10:43 PM MARKETING TRAFFIC COORDINATOR) [facility] WBC 16.5(H) 3.8 - 9.9 K/cumm Hgb 10.5(L) 13.0 - 17.5 g/dL [facility] Hct 31.4(L) 38.9 - 50.3 % [facility] Plt 238 150 - 400 K/cumm [facility] MPV 10.7 9.1 - 12.3 fL [facility] RBC 3.37(L) 4.30 - 5.80 M/cumm [facility] MCV 93.2 81.3 - 96.4 fL [facility] MCH 31.2 27.1 - 33.3 pg [facility] MCHC 33.4 32.3 - 35.7 g/dL [facility] RDW CV 13.3 11.1 - 14.9 % [facility] RDW SD 45.3 35.7 - 48.1 fL [facility] NRBC abs 0.00 0.00 - 0.01 K/cumm [facility] Blood 10/05/2024 10:4 3 PM MARKETING TRAFFIC COORDINATOR 10/05/2024 11:11 PM MARKETING TRAFFIC COORDINATOR us Maria Isabel Unger DIGITAL MARKETING ANALYST LAB BLOOD ORDERABLES Final Result [facility] [place] [address] * (ABNORMAL) Basic metabolic panel (10/05/2024 10:43 PM MARKETING TRAFFIC COORDINATOR) Sodium 143 135 - 145 mmol/L Potassium, pl 4.4 3.3 - 4.9 mmol/L [facility] Chloride 108 97 - 110 mmol/L [facility] CO2 25 22 - 32 mmol/L [facility] Anion gap 10 2 - 15 mmol/L [facility] BUN 30(H) 6 - 25 mg/dL [facility] Creatinine 1.14 0.80 - 1.30 mg/dL [facility] Glucose 139 70 - 199 mg/dL [facility] Comment: Interpretive Data Fasting glucose [...] 2022. Calcium 8.8 8.5 - 10.3 mg/dL [facility] Blood 10/05/2024 10:4 3 PM MARKETING TRAFFIC COORDINATOR 10/05/2024 11:10 PM MARKETING TRAFFIC COORDINATOR us James Robles MD LAB BLOOD ORDERABLES Final Resu lt [facility] [place] [address] * (ABNORMAL) Troponin I high-sensitivity (10/04/2024 8:49 PM MARKETING TRAFFIC COORDINATOR) Trop I hs 128(H) <=35 ng/L Comment: Interpretive Data For [facility] resources including the diagnostic algorithm and an aid in interpretation, copy and paste this link: https://bjhlab.testcatalog.org/show/[email or web address] Current Interpretive Data last revised 2020. Blood 10/04/2024 8:49 PM MARKETING TRAFFIC COORDINATOR 10/04/2024 9:06 PM MARKETING TRAFFIC COORDINATOR Tamanna Porras DIGITAL MARKETING ANALYST LAB BLOOD ORDERABLES Final Resul t Performing Organization Address City/[facility] Co de Phone Number [facility] [place] [address] * Calcium, ionized, whole blood (10/04/2024 8:49 PM MARKETING TRAFFIC COORDINATOR) Ca, ionized, bld 5.10 4.50 - 5.10 mg/dL Blood 10/04/2024 8:49 PM MARKETING TRAFFIC COORDINATOR 10/04/2024 9:00 PM MARKETING TRAFFIC COORDINATOR Tamanna Porras NP LAB BLOOD ORDERABLES Final Resul t Performing Organization Address [facility] de Phone Number [facility] [place] [address] * (ABNORMAL) eGFR (10/04/2024 8:49 PM MARKETING TRAFFIC COORDINATOR) eGFR 57(L) >=60 mL/min/1. 73 m2 Comment: [...] last reviewed 2021. Blood 10/04/2024 8:49 PM MARKETING TRAFFIC COORDINATOR 10/04/2024 9:06 PM MARKETING TRAFFIC COORDINATOR us James Robles MD LAB BLOOD ORDERABLES Final Resu lt [facility] [place] [address] * (ABNORMAL) Differential, auto (10/04/2024 8:49 PM MARKETING TRAFFIC COORDINATOR) Pathologist [facility] Neutrophil abs 20.1(H) 1.5 - 6.5 K/cumm Imm gran abs 0.3(H) 0.0 - 0.1 K/cumm [facility] Lymphocyte abs 1.2 0.8 - 3.3 K/cumm [facility] Monocyte abs 1.4(H) 0.2 - 0.8 K/cumm [facility] Eosinophil abs 0.0 0.0 - 0.5 K/cumm [facility] Basophil abs 0.0 0.0 - 0.1 K/cumm [facility] Neutrophil pct 87.4 % [facility] Comment: Consistent with previous result Interpretive Data Percent cell count reference ranges are not reported, since discordance with absolute values may lead to misinterpretation of CBC data. Current Interpretive Data was last revised on 2018. Imm gran pct 1.3 % [facility] Comment: Interpretive Data Percent cell count reference ranges are not reported, since discordance with absolute values may lead to misinterpretation of CBC data. Current Interpretive Data was last revised on 2018. Lymphocyte pct 5.2 % [facility] Comment: Interpretive Data Percent cell count reference ranges are not reported, since discordance with absolute values may lead to misinterpretation of CBC data. Current Interpretive Data was last revised on 2018. Monocyte pct 6.0 % [facility] Comment: Interpretive Data Percent cell count reference ranges are not reported, since discordance with absolute values may lead to misinterpretation of CBC data. Current Interpretive Data was last revised on 2018. Eosinophil pct 0.0 % [facility] Comment: Interpretive Data Percent cell count reference ranges are not reported, since discordance with absolute values may lead to misinterpretation of CBC data. Current Interpretive Data was last revised on 2018. Basophil pct 0.1 % [facility] Comment: Interpretive Data Percent cell count reference ranges are not reported, since discordance with absolute values may lead to misinterpretation of CBC data. Current Interpretive Data was last revised on 2018. Blood 10/04/2024 8:49 PM MARKETING TRAFFIC COORDINATOR 10/04/2024 9:06 PM MARKETING TRAFFIC COORDINATOR us James Robles MD LAB BLOOD ORDERABLES Final Resu lt [facility] [place] [address] * (ABNORMAL) CBC with auto differential (10/04/2024 8:49 PM MARKETING TRAFFIC COORDINATOR) WBC 23.0(H) 3.8 - 9.9 K/cumm Hgb 10.5(L) 13.0 - 17.5 g/dL [facility] Hct 31.0(L) 38.9 - 50.3 % [facility] Plt 207 150 - 400 K/cumm [facility] MPV 10.2 9.1 - 12.3 fL [facility] RBC 3.34(L) 4.30 - 5.80 M/cumm [facility] MCV 92.8 81.3 - 96.4 fL [facility] MCH 31.4 27.1 - 33.3 pg [facility] MCHC 33.9 32.3 - 35.7 g/dL [facility] RDW CV 13.6 11.1 - 14.9 % [facility] RDW SD 45.7 35.7 - 48.1 fL [facility] NRBC abs 0.00 0.00 - 0.01 K/cumm [facility] Blood 10/04/2024 8:49 PM MARKETING TRAFFIC COORDINATOR 10/04/2024 9:06 PM MARKETING TRAFFIC COORDINATOR us James Robles MD LAB BLOOD ORDERABLES Final Resu lt Performing Organization Address City/[facility]/ZIP Co de Phone Number [facility] [place] [address] * (ABNORMAL) Lactate, whole blood (10/04/2024 8:49 PM MARKETING TRAFFIC COORDINATOR) Pathologist [facility] Lactate, bld 2.5(H) 0.7 - 2.0 mmol/L Blood 10/04/2024 8:49 PM MARKETING TRAFFIC COORDINATOR 10/04/2024 9:00 PM MARKETING TRAFFIC COORDINATOR us Tamanna Porras NP LAB BLOOD ORDERABLES Final Resul t Performing Organization Address [facility] de Phone Number [facility] [place] [address] * (ABNORMAL) Basic metabolic panel (10/04/2024 8:49 PM MARKETING TRAFFIC COORDINATOR) [facility] Sodium 144 135 - 145 mmol/L Potassium, pl 4.4 3.3 - 4.9 mmol/L [facility] Chloride 113(H) 97 - 110 mmol/L [facility] CO2 22 22 - 32 mmol/L [facility] Anion gap 9 2 - 15 mmol/L [facility] BUN 24 6 - 25 mg/dL [facility] Creatinine 1.30 0.80 - 1.30 mg/dL [facility] Glucose 168 70 - 199 mg/dL [facility] Comment: Interpretive Data Fasting glucose [...] 2022. Calcium 8.4(L) 8.5 - 10.3 mg/dL [facility] Blood 10/04/2024 8:49 PM MARKETING TRAFFIC COORDINATOR 10/04/2024 9:06 PM MARKETING TRAFFIC COORDINATOR us James Robles MD LAB BLOOD ORDERABLES Final Resu lt [facility] [place] [address] * (ABNORMAL) Urinalysis reflex to microscopic and culture Urine (10/04/2024 1:30 PM MARKETING TRAFFIC COORDINATOR) Color, ur Straw Yellow Clarity, ur Clear Clear [facility] Specific gravity, ur 1.028 1.003 - 1.030 [facility] pH, urine 6.0 [facility] Comment: Interpretive Data ? Urine pH is affected by diet, medications, systemic acid-base disturbances, and renal tubular function. ??pH may affect urinary stone formation. ??For example, urine pH below 6.0 may help reduce the tendency for calcium phosphate stones and pH greater than 6.0 may reduce the tendency for uric acid stone formation. Source: [facility] [place] Current Interpretive Data was last revised on 2017 Protein, ur ql 1+(A) Negative [facility] Glucose, ur ql Negative Negative [facility] Ketones, ur Negative Negative [facility] Bilirubin, ur Negative Negative [facility] Blood, ur 3+(A) Negative [facility] Urobilinogen, ur <2.0 <2.0 mg/dL [facility] Nitrite, ur Negative Negative [facility] Leukocyte esterase, ur Negative Negative [facility] UA reflex comment Reflex to microscopic UA will be performed. [facility] Urine 10/04/2024 1:30 PM MARKETING TRAFFIC COORDINATOR 10/04/2024 4:16 PM MARKETING TRAFFIC COORDINATOR Tamanna Porras NP LAB MICROBIOLOGY - GENERAL ORDER TALYA Final Result Performing Organization Address [facility] Co de Phone Number [facility] [place] [address] * (ABNORMAL) Urinalysis, microscopic only (10/04/2024 1:30 PM MARKETING TRAFFIC COORDINATOR) WBC, ur 0-5 0 - 5 /HPF RBC, ur >50(A) 0 - 2 /HPF [facility] Epithelial cells, squamous, ur 1-5 0 - 5 /HPF [facility] Mucous, ur Present(A) [facility] Culture Reflex Comment Reflex conditions for urine culture (WBC >10) not met. [facility] Urine 10/04/2024 1:30 PM MARKETING TRAFFIC COORDINATOR 10/04/2024 4:15 PM MARKETING TRAFFIC COORDINATOR us Tamanna Porras NP LAB URINE ORDERABLES Final Resul t Performing Organization Address [facility] de Phone Number [facility] [place] [address] * (ABNORMAL) Lactate, whole blood (10/04/2024 12:12 PM MARKETING TRAFFIC COORDINATOR) Lactate, bld 3.7(H) 0.7 - 2.0 mmol/L Blood 10/04/2024 12:1 2 PM MARKETING TRAFFIC COORDINATOR 10/04/2024 12:22 PM MARKETING TRAFFIC COORDINATOR Tamanna Porras NP LAB BLOOD ORDERABLES Final Resul t Performing Organization Address [facility] Co de Phone Number [facility] [place] [address] * (ABNORMAL) Troponin I high-sensitivity 2-hour (10/04/2024 12:06 PM MARKETING TRAFFIC COORDINATOR) Pathologist [facility] Trop I hs 132(H) <=35 ng/L Comment: Interpretive Data For further hscTnI resources including the diagnostic algorithm and an aid in interpretation, copy and paste this link: https://bjhlab.testcatalog.org/show/[email or web address] Current Interpretive Data last revised 2020. Trop I hs pct delta -9 % [facility] Trop I hs interp Equivocal [facility] Blood 10/04/2024 12:0 6 PM MARKETING TRAFFIC COORDINATOR 10/04/2024 12:30 PM MARKETING TRAFFIC COORDINATOR Geraldine Leary NP LAB BLOOD ORDERABLES Final Result [facility] [place] [address] * Influenza A/B, RSV, and COVID-19 PCR Nasopharyngeal (10/04/2024 9:06 AM MARKETING TRAFFIC COORDINATOR) [facility] COVID-19 RNA Negative Negative [facility] Influenza A RNA Negative Negative [facility] Influenza B RNA Negative Negative [facility] RSV RNA Negative Negative [facility] Comment: Interpretive data: Testing performed by [facility] ([phone]). This test is performed using the Ambature Xpert Xpress CoV-2/Flu/RSV plus assay. This is a multiplex, real-time reverse transcriptase PCR assay intended for the qualitative detection of nucleic acid from SARS-CoV-2, influenza A, influenza B, and respiratory syncytial virus. This assay has been cleared by the [place] Food and Drug administration. The performance characteristics have been verified by the [facility]. ??Results must be considered in the clinical context, and a negative result does not rule out infection. Interpretive Data last revised 2023 Nasopharyngeal 10/04/2024 9: 06 AM MARKETING TRAFFIC COORDINATOR 10/04/2024 10:22 AM MARKETING TRAFFIC COORDINATOR Narrative [facility] - 10/04/2024 11:17 AM MARKETING TRAFFIC COORDINATOR Is the Patient experiencing symptoms consistent with COVID?->Unknown us Geraldine Leary NP LAB MICROBIOLOGY - GE NERAL ORDERABLES Final Result Performing Organization Address City/[facility]/ZIP Co de Phone Number RE[facility] [place] [address] [facility] * (ABNORMAL) Troponin I high-sensitivity series (baseline, 2hr, 4hr, 6hr) (10/04/2024 9:06 AM MARKETING TRAFFIC COORDINATOR) Trop I hs 145(H) <=35 ng/L Comment: Interpretive Data For further hscTnI resources including the diagnostic algorithm and an aid in interpretation, copy and paste this link: [email or web address]/[email or web address] Current Interpretive Data last revised 2020. Blood 10/04/2024 9:06 AM MARKETING TRAFFIC COORDINATOR 10/04/2024 9:58 AM MARKETING TRAFFIC COORDINATOR Geraldine Leary NP LAB BLOOD ORDERABLES Final Result Performing Organization Address [facility]/ZIP Co de Phone Number [facility] [place] [address] * (ABNORMAL) Lactate (10/04/2024 9:06 AM MARKETING TRAFFIC COORDINATOR) Lactate 4.1(C) 0.7 - 2.0 mmol/L Blood 10/04/2024 9:06 AM MARKETING TRAFFIC COORDINATOR 10/04/2024 9:58 AM MARKETING TRAFFIC COORDINATOR [facility] Wen Leary NP LAB BLOOD ORDERABLES Final Result [facility] [place] [address] * Critical Result Callback Chemistry (10/04/2024 9:06 AM MARKETING TRAFFIC COORDINATOR) Date Notified [id number] Time Notified 1024 REYNALDO [facility] TestName Lactate REYNALDO [facility] Called/Read Back Arin JACOBS [facility] Credentials RN CERNER [facility] Called By NEAL JACOBS [facility] Blood 10/04/2024 9:06 AM MARKETING TRAFFIC COORDINATOR 10/04/2024 9:58 AM MARKETING TRAFFIC COORDINATOR us Geraldine Leary NP LAB BLOOD ORDERABLES Final Result [facility] [place] [address] * eGFR (10/03/2024 10:36 PM MARKETING TRAFFIC COORDINATOR) eGFR 61 >=60 mL/min/1. 73 m2 Comment: [...] reviewed 2021. Blood 10/03/2024 10:3 6 PM MARKETING TRAFFIC COORDINATOR 10/03/2024 10:52 PM MARKETING TRAFFIC COORDINATOR us James Robles MD LAB BLOOD ORDERABLES Final Resu lt [id number] [place] [address] * (ABNORMAL) Basic metabolic panel (10/03/2024 10:36 PM MARKETING TRAFFIC COORDINATOR) Pathologist [facility] Sodium 142 135 - 145 mmol/L Potassium, pl 4.4 3.3 - 4.9 mmol/L [facility] Chloride 113(H) 97 - 110 mmol/L [facility] CO2 22 22 - 32 mmol/L [facility] Anion gap 7 2 - 15 mmol/L [facility] BUN 17 6 - 25 mg/dL [facility] Creatinine 1.23 0.80 - 1.30 mg/dL [facility] Glucose 162 70 - 199 mg/dL [facility] Comment: Interpretive Data Fasting glucose [...] 2022. Calcium 8.1(L) 8.5 - 10.3 mg/dL [facility] Blood 10/03/2024 10:3 6 PM MARKETING TRAFFIC COORDINATOR 10/03/2024 10:52 PM MARKETING TRAFFIC COORDINATOR us James Robles MD LAB BLOOD ORDERABLES Final Resu lt REYNALDO [facility] [place] [address] * (ABNORMAL) Differential, auto (10/03/2024 8:30 PM MARKETING TRAFFIC COORDINATOR) Neutrophil abs 22.7(H) 1.5 - 6.5 K/cumm Imm gran abs 0.3(H) 0.0 - 0.1 K/cumm [facility] Lymphocyte abs 1.2 0.8 - 3.3 K/cumm [facility] Monocyte abs 2.1(H) 0.2 - 0.8 K/cumm [facility] Eosinophil abs 0.0 0.0 - 0.5 K/cumm [facility] Basophil abs 0.0 0.0 - 0.1 K/cumm [facility] Neutrophil pct 86.2 % [facility] Comment: Consistent with previous result Interpretive Data Percent cell count reference ranges are not reported, since discordance with absolute values may lead to misinterpretation of CBC data. Current Interpretive Data was last revised on 2018. Imm gran pct 1.1 % [facility] Comment: Interpretive Data Percent cell count reference ranges are not reported, since discordance with absolute values may lead to misinterpretation of CBC data. Current Interpretive Data was last revised on 2018. Lymphocyte pct 4.6 % [facility] Comment: Interpretive Data Percent cell count reference ranges are not reported, since discordance with absolute values may lead to misinterpretation of CBC data. Current Interpretive Data was last revised on 2018. Monocyte pct 8.0 % [facility] Comment: Interpretive Data Percent cell count reference ranges are not reported, since discordance with absolute values may lead to misinterpretation of CBC data. Current Interpretive Data was last revised on 2018. Eosinophil pct 0.0 % [facility] Comment: Interpretive Data Percent cell count reference ranges are not reported, since discordance with absolute values may lead to misinterpretation of CBC data. Current Interpretive Data was last revised on 2018. Basophil pct 0.1 % [facility] Comment: Interpretive Data Percent cell count reference ranges are not reported, since discordance with absolute values may lead to misinterpretation of CBC data. Current Interpretive Data was last revised on 2018. Blood 10/03/2024 8:30 PM MARKETING TRAFFIC COORDINATOR 10/03/2024 9:05 PM MARKETING TRAFFIC COORDINATOR us James Robles MD LAB BLOOD ORDERABLES Final Resu lt C[facility] [place] [address] * (ABNORMAL) CBC with auto differential (10/03/2024 8:30 PM MARKETING TRAFFIC COORDINATOR) [facility] WBC 26.3(H) 3.8 - 9.9 K/cumm Hgb 11.3(L) 13.0 - 17.5 g/dL [facility] Hct 33.7(L) 38.9 - 50.3 % [facility] Plt 302 150 - 400 K/cumm [facility] MPV 10.4 9.1 - 12.3 fL [facility] RBC 3.61(L) 4.30 - 5.80 M/cumm [facility] MCV 93.4 81.3 - 96.4 fL [facility] MCH 31.3 27.1 - 33.3 pg [facility] MCHC 33.5 32.3 - 35.7 g/dL [facility] RDW CV 13.2 11.1 - 14.9 % [facility] RDW SD 45.1 35.7 - 48.1 fL [facility] NRBC abs 0.00 0.00 - 0.01 K/cumm [facility] Blood 10/03/2024 8:30 PM MARKETING TRAFFIC COORDINATOR 10/03/2024 9:05 PM MARKETING TRAFFIC COORDINATOR us James Robles MD LAB BLOOD ORDERABLES Final Resu lt Performing Organization Address City/State/[facility] Co de Phone Number [facility] [place] [address] * eGFR (10/03/2024 8:25 PM MARKETING TRAFFIC COORDINATOR) [facility] eGFR 60 >=60 mL/min/1. 73 m2 [...] last reviewed 2021. Blood 10/03/2024 8:25 PM MARKETING TRAFFIC COORDINATOR 10/03/2024 9:05 PM MARKETING TRAFFIC COORDINATOR us James Robles MD LAB BLOOD ORDERABLES Final Resu lt [facility] [place] [address] * (ABNORMAL) Basic metabolic panel (10/03/2024 8:25 PM MARKETING TRAFFIC COORDINATOR) Sodium 143 135 - 145 mmol/L Potassium, pl 4.1 3.3 - 4.9 mmol/L [facility] Chloride 113(H) 97 - 110 mmol/L [facility] CO2 20(L) 22 - 32 mmol/L [facility] Anion gap 10 2 - 15 mmol/L [facility] BUN 17 6 - 25 mg/dL [facility] Creatinine 1.25 0.80 - 1.30 mg/dL [facility] Glucose 163 70 - 199 mg/dL [facility] Comment: Interpretive Data Fasting glucose [...] 2022. Calcium 8.0(L) 8.5 - 10.3 mg/dL [facility] Blood 10/03/2024 8:25 PM MARKETING TRAFFIC COORDINATOR 10/03/2024 9:05 PM MARKETING TRAFFIC COORDINATOR James Robles MD LAB BLOOD ORDERABLES Final Resu lt [facility] [place] [address] * ECG 12 lead (10/03/2024 2:19 PM MARKETING TRAFFIC COORDINATOR) Pathologist [facility] Ventricular Rate EKG/Min 96 BPM [facility] Atrial Rate 96 BPM [facility] MI-Interval (MSEC) 242 ms [facility] QRS-Interval (MSEC) 110 ms [facility] QT-Interval (MSEC) 364 ms [facility] QTc 459 ms [facility] P Purcell 69 degrees [facility] R Purcell 76 degrees [facility] T Purcell 1 degrees [facility] Diagnosis Sinus rhythm with 1st degree [...] has lengthened Confirmed by JACOBO CARSON M.D ([id number]) on 10/04/2024 10:42:26 AM [facility] 10/03/2024 2:19 PM MARKETING TRAFFIC COORDINATOR 10/04/2024 10:42 AM MARKETING TRAFFIC COORDINATOR James Robles MD ECG ORDERABLES Final Result [facility] * POCT glucose (10/03/2024 2:07 PM MARKETING TRAFFIC COORDINATOR) Glucose, POC 128 70 - 199 mg/dL Blood 10/03/2024 2:07 PM MARKETING TRAFFIC COORDINATOR 10/03/2024 2:07 PM MARKETING TRAFFIC COORDINATOR us James Robles MD LAB POCT ORDERABLES - DEVICE Fi nal Result [facility] [place] [address] * (ABNORMAL) eGFR (10/03/2024 4:58 AM MARKETING TRAFFIC COORDINATOR) eGFR 57(L) >=60 mL/min/1. 73 m2 Comment: [...] last reviewed 2021. Blood 10/03/2024 4:58 AM MARKETING TRAFFIC COORDINATOR 10/03/2024 5:32 AM MARKETING TRAFFIC COORDINATOR us James Robles MD LAB BLOOD ORDERABLES Final Resu lt [facility] [place] [address] * (ABNORMAL) Differential, auto (10/03/2024 4:58 AM MARKETING TRAFFIC COORDINATOR) Neutrophil abs 28.0(H) 1.5 - 6.5 K/cumm Imm gran abs 0.2(H) 0.0 - 0.1 K/cumm CERNER [facility] Lymphocyte abs 0.9 0.8 - 3.3 K/cumm [facility] Monocyte abs 1.5(H) 0.2 - 0.8 K/cumm [facility] Eosinophil abs 0.0 0.0 - 0.5 K/cumm [facility] Basophil abs 0.1 0.0 - 0.1 K/cumm [facility] Neutrophil pct 91.6 % [facility] Comment: Interpretive Data Percent cell count reference ranges are not reported, since discordance with absolute values may lead to misinterpretation of CBC data. Current Interpretive Data was last revised on 2018. Imm gran pct 0.6 % [facility] Comment: Interpretive Data Percent cell count reference ranges are not reported, since discordance with absolute values may lead to misinterpretation of CBC data. Current Interpretive Data was last revised on 2018. Lymphocyte pct 2.8 % [facility] Comment: Interpretive Data Percent cell count reference ranges are not reported, since discordance with absolute values may lead to misinterpretation of CBC data. Current Interpretive Data was last revised on 2018. [facility]ocyte pct 4.8 % [facility] Comment: Interpretive Data Percent cell count reference ranges are not reported, since discordance with absolute values may lead to misinterpretation of CBC data. Current Interpretive Data was last revised on 2018. Eosinophil pct 0.0 % [facility] Comment: Interpretive Data Percent cell count reference ranges are not reported, since discordance with absolute values may lead to misinterpretation of CBC data. Current Interpretive Data was last revised on 2018. Basophil pct 0.2 % [facility] Comment: Interpretive Data Percent cell count reference ranges are not reported, since discordance with absolute values may lead to misinterpretation of CBC data. Current Interpretive Data was last revised on 2018. Blood 10/03/2024 4:58 AM MARKETING TRAFFIC COORDINATOR 10/03/2024 5:32 AM MARKETING TRAFFIC COORDINATOR James Robles MD LAB BLOOD ORDERABLES Final Resu lt [facility] [place] [address] * (ABNORMAL) CBC with auto differential (10/03/2024 4:58 AM MARKETING TRAFFIC COORDINATOR) WBC 30.5(H) 3.8 - 9.9 K/cumm Hgb 13.0 13.0 - 17.5 g/dL [facility] Hct 38.0(L) 38.9 - 50.3 % [facility] Plt 346 150 - 400 K/cumm [facility] MPV 10.2 9.1 - 12.3 fL [facility] RBC 4.14(L) 4.30 - 5.80 M/cumm [facility] MCV 91.8 81.3 - 96.4 fL [facility] MCH 31.4 27.1 - 33.3 pg [facility] MCHC 34.2 32.3 - 35.7 g/dL [facility] RDW CV 12.9 11.1 - 14.9 % [facility] RDW SD 43.0 35.7 - 48.1 fL [facility] NRBC abs 0.00 0.00 - 0.01 K/cumm [facility] Blood 10/03/2024 4:58 AM MARKETING TRAFFIC COORDINATOR 10/03/2024 5:32 AM MARKETING TRAFFIC COORDINATOR James Robles MD LAB BLOOD ORDERABLES Final Resu lt Performing Organization Address City/[facility]/ZIP Co de Phone Number [facility] [place] [address] * (ABNORMAL) Basic metabolic panel (10/03/2024 4:58 AM MARKETING TRAFFIC COORDINATOR) Sodium 143 135 - 145 mmol/L Potassium, pl 4.7 3.3 - 4.9 mmol/L [facility] Chloride 111(H) 97 - 110 mmol/L [facility] CO2 22 22 - 32 mmol/L [facility] Anion gap 10 2 - 15 mmol/L [facility] BUN 14 6 - 25 mg/dL [facility] Creatinine 1.29 0.80 - 1.30 mg/dL [facility] Glucose 146 70 - 199 mg/dL [facility] Comment: Interpretive Data Fasting glucose [...] 2022. Calcium 8.3(L) 8.5 - 10.3 mg/dL [facility] Blood 10/03/2024 4:58 AM MARKETING TRAFFIC COORDINATOR 10/03/2024 5:32 AM MARKETING TRAFFIC COORDINATOR us James Robles MD LAB BLOOD ORDERABLES Final Resu lt [facility] [place] [address] * XR chest 1 view (Portable) (10/02/2024 9:08 PM MARKETING TRAFFIC COORDINATOR) Anatomical Region Laterality Modality Body, Chest N/A Computed Radiogr aphy 10/03/2024 8:28 AM MARKETING TRAFFIC COORDINATOR Impressions 10/03/2024 4:05 PM MARKETING TRAFFIC COORDINATOR No priors available for comparison. Spinal stimulator [...] James MD, PHD Narrative 10/03/2024 4:05 PM MARKETING TRAFFIC COORDINATOR EXAMINATION: 1 view chest radiograph Procedure Note [...] Result * (ABNORMAL) eGFR (10/02/2024 4:01 PM MARKETING TRAFFIC COORDINATOR) [facility] eGFR 57(L) >=60 mL/min/1. 73 m2 [...] last reviewed 2021. Blood 10/02/2024 4:01 PM MARKETING TRAFFIC COORDINATOR 10/02/2024 4:17 PM MARKETING TRAFFIC COORDINATOR us James Robles MD LAB BLOOD ORDERABLES Final Resu lt [facility] [place] [address] * (ABNORMAL) Differential, auto (10/02/2024 4:01 PM MARKETING TRAFFIC COORDINATOR) Neutrophil abs 14.1(H) 1.5 - 6.5 K/cumm Imm gran abs 0.1 0.0 - 0.1 K/cumm [facility] Lymphocyte abs 1.3 0.8 - 3.3 K/cumm [facility] Monocyte abs 0.7 0.2 - 0.8 K/cumm [facility] Eosinophil abs 0.0 0.0 - 0.5 K/cumm [facility] Basophil abs 0.1 0.0 - 0.1 K/cumm [facility] Neutrophil pct 86.5 % [facility] Comment: Interpretive Data Percent cell count reference ranges are not reported, since discordance with absolute values may lead to misinterpretation of CBC data. Current Interpretive Data was last revised on 2018. Imm gran pct 0.7 % [facility] Comment: Interpretive Data Percent cell count reference ranges are not reported, since discordance with absolute values may lead to misinterpretation of CBC data. Current Interpretive Data was last revised on 2018. Lymphocyte pct 8.0 % [facility] Comment: Interpretive Data Percent cell count reference ranges are not reported, since discordance with absolute values may lead to misinterpretation of CBC data. Current Interpretive Data was last revised on 2018. Monocyte pct 4.2 % [facility] Comment: Interpretive Data Percent cell count reference ranges are not reported, since discordance with absolute values may lead to misinterpretation of CBC data. Current Interpretive Data was last revised on 2018. Eosinophil pct 0.2 % [facility] Comment: Interpretive Data Percent cell count reference ranges are not reported, since discordance with absolute values may lead to misinterpretation of CBC data. Current Interpretive Data was last revised on 2018. Basophil pct 0.4 % [facility] Comment: Interpretive Data Percent cell count reference ranges are not reported, since discordance with absolute values may lead to misinterpretation of CBC data. Current Interpretive Data was last revised on 2018. Blood 10/02/2024 4:01 PM MARKETING TRAFFIC COORDINATOR 10/02/2024 4:17 PM MARKETING TRAFFIC COORDINATOR us James Robles MD LAB BLOOD ORDERABLES Final Resu lt [facility] [place] [address] * (ABNORMAL) CBC with auto differential (10/02/2024 4:01 PM MARKETING TRAFFIC COORDINATOR) WBC 16.3(H) 3.8 - 9.9 K/cumm Hgb 12.7(L) 13.0 - 17.5 g/dL [facility] Hct 38.7(L) 38.9 - 50.3 % [facility] Plt 255 150 - 400 K/cumm [facility] MPV 9.8 9.1 - 12.3 fL [facility] RBC 4.10(L) 4.30 - 5.80 M/cumm [facility] MCV 94.4 81.3 - 96.4 fL [facility] MCH 31.0 27.1 - 33.3 pg [facility] MCHC 32.8 32.3 - 35.7 g/dL [facility] RDW CV 12.9 11.1 - 14.9 % [facility] RDW SD 44.5 35.7 - 48.1 fL [facility] NRBC abs 0.00 0.00 - 0.01 K/cumm [facility] Blood 10/02/2024 4:01 PM MARKETING TRAFFIC COORDINATOR 10/02/2024 4:17 PM MARKETING TRAFFIC COORDINATOR aJmes Robles MD LAB BLOOD ORDERABLES Final Resu lt Performing Organization Address [facility] Co de Phone Number [facility] [place] [address] * (ABNORMAL) aPTT (10/02/2024 4:01 PM MARKETING TRAFFIC COORDINATOR) aPTT 27(L) 28 - 38 sec Comment: Interpretive Data Heparin therapeutic range: 66.0 - 100.0 seconds. Range based on correlation with therapeutic heparin activity range of 0.3 - 0.7 Units/mL. Current interpretive data was last revised on 2023. Blood 10/02/2024 4:01 PM MARKETING TRAFFIC COORDINATOR 10/02/2024 4:16 PM MARKETING TRAFFIC COORDINATOR Result [facility] James Robles MD LAB BLOOD ORDERABLES Final Resu lt Performing Organization Address [facility] Co de Phone Number [facility] [place] [address] * Protime-INR (10/02/2024 4:01 PM MARKETING TRAFFIC COORDINATOR) PT 12.4 9.7 - 13.0 sec INR 1.14 0.90 - 1.20 [facility] Comment: Interpretive data Oral anticoagulant therapeutic ranges: Venous thromboembolism prophylaxis or treatment: 2.0-3.0 CARDIOLOGY Standard range: 2.0-3.0 High-intensity range: 2.5-3.5 Refer to indication-specific guidelines for appropriate target ranges for prosthetic heart valve replacement. Current interpretive data was last revised on 2019. Blood 10/02/2024 4:01 PM MARKETING TRAFFIC COORDINATOR 10/02/2024 4:16 PM MARKETING TRAFFIC COORDINATOR us James Robles MD LAB BLOOD ORDERABLES Final Resu lt Performing Organization Address City/[facility] Co de Phone Number [facility] [place] [address] * Phosphorus (10/02/2024 4:01 PM MARKETING TRAFFIC COORDINATOR) Pathologist [facility] Phosphorus, pl 2.4 2.3 - 4.5 mg/dL Blood 10/02/2024 4:01 PM MARKETING TRAFFIC COORDINATOR 10/02/2024 4:17 PM MARKETING TRAFFIC COORDINATOR James Robles MD LAB BLOOD ORDERABLES Final Resu lt Performing Organization Address [facility] Co de Phone Number [facility] [place] [address] * Magnesium (10/02/2024 4:01 PM MARKETING TRAFFIC COORDINATOR) Pathologist [facility] Magnesium 1.9 1.4 - 2.5 mg/dL Blood 10/02/2024 4:01 PM MARKETING TRAFFIC COORDINATOR 10/02/2024 4:17 PM MARKETING TRAFFIC COORDINATOR James Robles MD LAB BLOOD ORDERABLES Final Resu lt Performing Organization Address City/[facility] [place] [place] [address] * (ABNORMAL) Comprehensive metabolic panel (10/02/2024 4:01 PM MARKETING TRAFFIC COORDINATOR) Pathologist [facility] Sodium 141 135 - 145 mmol/L Potassium, pl 4.2 3.3 - 4.9 mmol/L [facility] Chloride 112(H) 97 - 110 mmol/L [facility] CO2 22 22 - 32 mmol/L [facility] Anion gap 7 2 - 15 mmol/L [facility] BUN 16 6 - 25 mg/dL [facility] Creatinine 1.30 0.80 - 1.30 mg/dL [facility] Glucose 118 70 - 199 mg/dL [facility] Comment: Interpretive Data Fasting glucose [...] 2022. Calcium 8.3(L) 8.5 - 10.3 mg/dL [facility] Bilirubin, total 0.2 0.1 - 1.2 mg/dL [facility] Protein, pl 5.5(L) 6.5 - 8.5 g/dL [facility] Albumin 3.4(L) 3.5 - 5.0 g/dL [facility] Alk phos 64 40 - 130 Units/L [facility] ALT 19 7 - 55 Units/L [facility] AST 21 10 - 50 Units/L [facility] Blood 10/02/2024 4:01 PM MARKETING TRAFFIC COORDINATOR 10/02/2024 4:17 PM MARKETING TRAFFIC COORDINATOR us James Robles MD LAB BLOOD ORDERABLES Final Resu lt [facility] [place] [address] * (ABNORMAL) POC Blood Gas and Chemistries, Arterial - (10/02/2024 2:30 PM MARKETING TRAFFIC COORDINATOR) pH, Art POC 7.31(L) 7.35 - 7.45 pCO2, Art POC 41 35 - 45 mmHg [facility] pO2, Art POC 264(H) 83 - 108 mmHg [facility] Na, POC 140 135 - 145 mmol/L [facility] K POC 4.0 3.3 - 4.9 mmol/L [facility] Comment: Interpretive Data Not all point of care methods assess for hemolysis. Confirm with instrument and retest K+ if not consistent with clinical signs and symptoms. Current Interpretive Data was last revised on 2024. Cl, POC 111(H) 97 - 110 mmol/L [facility] Ionized Ca, POC 4.86 4.50 - 5.10 mg/dL [facility] Glucose, POC 104 70 - 199 mg/dL [facility] Lactate, POC 1.1 0.7 - 2.2 mmol/L [facility] SO2 (cas) arterial 100(H) 90 - 95 % [facility] Base excess, POC -5.4 mmol/L [facility] Hct, POC 37.0(L) 41.4 - 51.6 % [facility] Total Hb, POC 12.4(L) 13.8 - 17.2 g/dL [facility] Blood 10/02/2024 2:30 PM MARKETING TRAFFIC COORDINATOR 10/02/2024 2:30 PM MARKETING TRAFFIC COORDINATOR James Robles MD LAB POCT ORDERABLES - DEVICE Fi nal Result [facility] [place] [address] * FL Fluoroscopy < 1 Hour (10/02/2024 2:00 PM MARKETING TRAFFIC COORDINATOR) Narrative RAD_PACS_[facility]J - 10/03/2024 5:04 PM MARKETING TRAFFIC COORDINATOR The images from this study are not interpreted by Radiology. ??Please refer to the physician's procedure / OR operative note. James Robles MD IMG FLUOROSCOPY PROCEDURES Cammy l Result [facility] * Surgical pathology (10/02/2024 12:15 PM MARKETING TRAFFIC COORDINATOR) Soft tissue 10/02/2024 12:1 5 PM MARKETING TRAFFIC COORDINATOR 10/02/2024 3:15 PM MARKETING TRAFFIC COORDINATOR Narrative 10/06/2024 2:00 PM MARKETING TRAFFIC COORDINATOR [facility] [place] [address] NEUROPATHOLOGY REPORT FINAL Patient Name:LILI DELGADOAddress:[address] [place] [address] CTService:NeurosurgeryAccession #:[id number], [place] ??[id number]:[facility] OR POD 5Taken:10/02/2024Gender: MMRN :[id number]:10/02/2024OB:1950 (Age: 74)Hospital #:[id number]:10/02/2024atient Type:[facility] InpatientReported:10/06/2024 ? Physician(s): Abelardo Tijerina M.D. DIAGNOSIS: [...] Surgical Pathology report is available electronically in [employer]. The performance characteristics of some immunohistochemical stains, fluorescence in-situ hybridization tests and immunophenotyping by flow cytometry cited in this report (if any) were determined by the Surgical Pathology Department at [facility] as part of an ongoing quality control engineering technician program and in compliance with federally mandated [...] determined by the Surgical Pathology Department of [facility]. ??It has not been cleared or approved by the U. S. Food and Drug Administration. James Robles MD LAB PATHOLOGY ORDERABLES Final Result * (ABNORMAL) POC Blood Gas and Chemistries, Arterial - (10/02/2024 10:43 AM MARKETING TRAFFIC COORDINATOR) pH, Art POC 7.32(L) 7.35 - 7.45 pCO2, Art POC 41 35 - 45 mmHg [facility] pO2, Art POC 239(H) 83 - 108 mmHg [facility] Na, POC 141 135 - 145 mmol/L [facility] K POC 4.0 3.3 - 4.9 mmol/L [facility] Comment: Interpretive Data Not all point of care methods assess for hemolysis. Confirm with instrument and retest K+ if not consistent with clinical signs and symptoms. Current Interpretive Data was last revised on 2024. Cl, POC 112(H) 97 - 110 mmol/L [facility] Ionized Ca, POC 4.92 4.50 - 5.10 mg/dL [facility] Glucose, POC 97 70 - 199 mg/dL [facility] Lactate, POC 1.0 0.7 - 2.2 mmol/L [facility] SO2 (cas) arterial 100(H) 90 - 95 % [facility] Base excess, POC -4.7 mmol/L [facility] Hct, POC 35.0(L) 41.4 - 51.6 % [facility] Total Hb, POC 11.8(L) 13.8 - 17.2 g/dL [facility] Blood 10/02/2024 10:4 3 AM MARKETING TRAFFIC COORDINATOR 10/02/2024 10:43 AM MARKETING TRAFFIC COORDINATOR James Robles MD LAB POCT ORDERABLES - DEVICE Fi nal Result [facility] [place] [address] * Arterial Line (10/02/2024 8:32 AM MARKETING TRAFFIC COORDINATOR) Narrative Vance Morales MD - 10/02/2024 8:32 AM MARKETING TRAFFIC COORDINATOR Vance Morales MD ? 10/02/2024 ??8:32 AM [...] tolerated procedure well with no complications Result [facility] Marimar Carr MD PhD ANESTHESIA ORDERABLES Final Result * Airway (10/02/2024 8:31 AM MARKETING TRAFFIC COORDINATOR) Narrative Vance Morales MD - 10/02/2024 8:31 AM MARKETING TRAFFIC COORDINATOR Vance Morales MD ? 10/02/2024 ??8:32 AM [...] of attempts: 1 Planned trial extubation: yes Result [facility] Marimar Carr MD PhD ANESTHESIA ORDERABLES Final Result * Type and screen (10/02/2024 6:18 AM MARKETING TRAFFIC COORDINATOR) Ramu, indirect Negative ABO Rh B Negative [facility] Blood 10/02/2024 6:18 AM MARKETING TRAFFIC COORDINATOR 10/02/2024 6:26 AM MARKETING TRAFFIC COORDINATOR Narrative [facility] - 10/02/2024 7:28 AM MARKETING TRAFFIC COORDINATOR Has the patient had Daratumumab or Isatuximab in the past 6 months?->Unknown Sully Archer DIGITAL MARKETING ANALYST LAB BLOOD BANK TEST ORDER TALYA Final Result Performing Organization Address [facility] de Phone Number [facility] [place] [address] * TYPE AND SCREEN 14 DAY (09/13/2024 11:37 AM CDT) ABO Rh B Negative Ramu, indirect Negative [facility] Blood 09/13/2024 11:3 7 AM CDT 09/13/2024 1:50 PM CDT Narrative [facility] - 09/13/2024 3:22 PM CDT Has the patient had Daratumumab or Isatuximab in the past 6 months?->Unknown Is this test being ordered in advance for a procedure?->Yes Expected date of procedure:->10/02/24 Has the patient been transfused in the past 3 months?->No Sully Archer DIGITAL MARKETING ANALYST LAB BLOOD BANK TEST ORDER TALYA Final Result Performing Organization Address [facility] de Phone Number [facility] [place] [address] * (ABNORMAL) eGFR (09/13/2024 11:37 AM CDT) Pathologist [facility] eGFR 46(L) >=60 mL/min/1. 73 m2 Comment: [...] MD LAB BLOOD ORDERABLES Final Resu lt [facility] [place] [address] * (ABNORMAL) Differential, auto (09/13/2024 11:37 AM CDT) Neutrophil abs 6.9(H) 1.5 - 6.5 K/cumm Imm gran abs 0.1 0.0 - 0.1 K/cumm [facility] Lymphocyte abs 2.2 0.8 - 3.3 K/cumm [facility] Monocyte abs 1.2(H) 0.2 - 0.8 K/cumm [facility] Eosinophil abs 0.1 0.0 - 0.5 K/cumm [facility] Basophil abs 0.0 0.0 - 0.1 K/cumm [facility] Neutrophil pct 66.1 % [facility] Comment: Interpretive Data Percent cell count reference ranges are not reported, since discordance with absolute values may lead to misinterpretation of CBC data. Current Interpretive Data was last revised on 2018. Imm gran pct 0.5 % [facility] Comment: Interpretive Data Percent cell count reference ranges are not reported, since discordance with absolute values may lead to misinterpretation of CBC data. Current Interpretive Data was last revised on 2018. Lymphocyte pct 20.7 % [facility] Comment: Interpretive Data Percent cell count reference ranges are not reported, since discordance with absolute values may lead to misinterpretation of CBC data. Current Interpretive Data was last revised on 2018. Monocyte pct 11.8 % [facility] Comment: Interpretive Data Percent cell count reference ranges are not reported, since discordance with absolute values may lead to misinterpretation of CBC data. Current Interpretive Data was last revised on 2018. Eosinophil pct 0.5 % [facility] Comment: Interpretive Data Percent cell count reference ranges are not reported, since discordance with absolute values may lead to misinterpretation of CBC data. Current Interpretive Data was last revised on 2018. Basophil pct 0.4 % [facility] Comment: Interpretive Data Percent cell count reference ranges are not reported, since discordance with absolute values may lead to misinterpretation of CBC data. Current Interpretive Data was last revised on 2018. Blood 09/13/2024 11:3 7 AM CDT 09/13/2024 1:36 PM CDT us James Robles MD LAB BLOOD ORDERABLES Final Resu lt [facility] [place] [address] * CPAP aPTT algorithm (09/13/2024 11:37 AM [...] NP LAB BLOOD ORDERABLES Cammy l Result [facility] [place] [address] * (ABNORMAL) Urinalysis reflex to microscopic and culture Urine, clean voided (09/13/2024 11:37 AM CDT) Color, ur Straw Yellow Clarity, ur Clear Clear [facility] Specific gravity, ur 1.016 1.003 - 1.030 [facility] pH, urine 5.5 [facility] Comment: Interpretive Data ? Urine pH is affected by diet, medications, systemic acid-base disturbances, and renal tubular function. ??pH may affect urinary stone formation. ??For example, urine pH below 6.0 may help reduce the tendency for calcium phosphate stones and pH greater than 6.0 may reduce the tendency for uric acid stone formation. Source: [facility] [place] Current Interpretive Data was last revised on 2017 Protein, ur ql Trace Negative [facility] Glucose, ur ql Negative Negative [facility] Ketones, ur Negative Negative [facility] Bilirubin, ur Negative Negative [facility] Blood, ur 1+(A) Negative [facility] Urobilinogen, ur <2.0 <2.0 mg/dL [facility] Nitrite, ur Negative Negative [facility] Leukocyte esterase, ur Negative Negative [facility] UA reflex comment Reflex to microscopic UA will be performed. [facility] Urine, clean voided 09/13/2024 11:37 AM CDT 09/13/2024 1:37 PM CDT James Robles MD LAB MICROBIOLOGY - GENERAL [place] Final Result [facility] [place] [address] * (ABNORMAL) CBC with auto differential (09/13/2024 11:37 AM CDT) WBC 10.4(H) 3.8 - 9.9 K/cumm Hgb 14.0 13.0 - 17.5 g/dL [facility] Hct 42.7 38.9 - 50.3 % [facility] Plt 254 150 - 400 K/cumm [facility] MPV 10.5 9.1 - 12.3 fL [facility] RBC 4.47 4.30 - 5.80 M/cumm [facility] MCV 95.5 81.3 - 96.4 fL [facility] MCH 31.3 27.1 - 33.3 pg [facility] MCHC 32.8 32.3 - 35.7 g/dL [facility] RDW CV 12.7 11.1 - 14.9 % [facility] RDW SD 44.9 35.7 - 48.1 fL [facility] NRBC abs 0.00 0.00 - 0.01 K/cumm [facility] Blood 09/13/2024 11:3 7 AM CDT 09/13/2024 1:36 PM CDT James Robles MD LAB BLOOD ORDERABLES Final Resu lt Performing Organization Address [facility] de Phone Number [facility] [place] [address] * Vitamin D 25 hydroxy (09/13/2024 11:37 AM CDT) Pathologist [facility] Vitamin D 25-OH 30 30 - 80 ng/mL Blood 09/13/2024 11:3 7 AM CDT 09/13/2024 1:34 PM CDT James Robles MD LAB BLOOD ORDERABLES Final Resu lt Performing Organization Address City/[facility] de Phone Number [facility] [place] [address] * (ABNORMAL) Urinalysis, microscopic only (09/13/2024 11:37 AM CDT) Pathologist [facility] WBC, ur 6-10(A) 0 - 5 /HPF RBC, ur 21-50(A) 0 - 2 /HPF [facility] Epithelial cells, squamous, ur 1-5 0 - 5 /HPF [facility] Mucous, ur Present(A) [facility] Culture Reflex Comment Reflex conditions for urine culture (WBC >10) not met. [facility] Urine, clean voided 09/13/2024 11:37 AM CDT 09/13/2024 1:37 PM CDT James Robles MD LAB URINE ORDERABLES Final Resu lt Performing Organization Address [facility] Co de Phone Number [facility] [place] [address] * aPTT (09/13/2024 11:37 AM CDT) aPTT [...] ORDERABLES Final Resu lt Performing Organization Address [facility] Co de Phone Number [facility] [place] [address] * Protime-INR (09/13/2024 11:37 AM CDT) PT 11.0 9.7 - 13.0 sec INR 1.02 0.90 - 1.20 [facility] Comment: Interpretive data Oral anticoagulant [...] Final Resu lt [facility] [place] [address] * (ABNORMAL) Basic metabolic panel (09/13/2024 11:37 AM CDT) Sodium 144 135 - 145 mmol/L Potassium, pl 3.8 3.3 - 4.9 mmol/L [facility] Chloride 105 97 - 110 mmol/L [facility] CO2 25 22 - 32 mmol/L [facility] Anion gap 14 2 - 15 mmol/L [facility] BUN 16 6 - 25 mg/dL [facility] Creatinine 1.55(H) 0.80 - 1.30 mg/dL [facility] Glucose 67(L) 70 - 199 mg/dL [facility] Comment: Interpretive Data Fasting glucose [...] 2022. Calcium 9.9 8.5 - 10.3 mg/dL [facility] Blood 09/13/2024 11:3 7 AM CDT 09/13/2024 1:34 PM CDT James Robles MD LAB BLOOD ORDERABLES Final Resu lt Performing Organization Address City/[facility]/ZIP Co de Phone Number [facility] [place] [address] from Last 3 Months Insurance MEDICARE [facility] [employer] MEDICARE [facility] [employer]AL Advance Directives For more information, please contact: [phone] * Full Code (Latest Code Status on File) Date Activated Date Inactivated Comments 10/02/2024 7:33 PM 10/14/2024 6:47 PM Care Teams Swimming Pool Maintenance Relationship Specialty Start Date End Date Sj Benson MD [address] [place] [address] PCP - General Family Medicine 07/05/24
--- OUTSIDE RECORDS SUMMARY | 2024-11-16 21:29 | XMS_ITS | Encounter Summary ---
Author Organization [facility] Address [address] [facility] [address] [place] [address] Phone Care Team Providers Care Operational Risk Manager Name Role Phone Sj Benson MD Primary Care Provider [phone] Reason for Referral * Consultation (Routine) - Pending Review Specialty Diagnoses / Procedures Referred By Hector sosa Referred To Contact Hematology Diagnoses Hospital discharge follow-up Claudia Ryan NP [address] [place] [address] Phone: tel: fax: Claudia Salmon MD [address] [place] [address] Phone: tel: fax: Referral ID Status Reason Start Date Expiration Date Visits Requested Visits Authorized [id number] Pending Review Specialty Services Required 4 11/08/2025 1 1 Question Answer Please select the performing region: [facility] (All Locations) [[id number]] Please select the performing department: [facility] HEM [id number] [[id number]] To provider: CLAUDIA SALMON [[id number]] # of visits: 1 Comments Hospital discharge f/u with Dr Salmon in about 3 months GER MATH Encounter Details Date Type Department Care Team (Late st Contact Info) Description 10/09/2024 Orders Only [facility] Hematology [address] [facility] [address] [place] [address] Claudia yRan, JOSE [address] [place] [address] Hospital discharge follow-up (Primary Dx) Social History [...] file 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 Gender Identity Not on file Sexual Orientation Not on file documented as of this encounter Plan of Treatment Scheduled Referrals Name Type Priority Associated Diagnoses Order Schedule Ambulatory referral to Hematology Outpatient Referral Routine Hospital discharge follow-up Ordered: 10/09/2024 documented as of this encounter Visit Diagnoses Diagnosis Hospital discharge follow-up- Primary Other follow-up examination documented in this encounter Care Teams Operational Risk Manager Relationship Specialty Start Date End Date Sj Benson MD [address] [place] [address] PCP - General Family Medicine 07/05/24 documented as of this encounter
--- OUTSIDE RECORDS SUMMARY | 2024-11-16 21:29 | XMS_ITS | Encounter Summary ---
Author Organization [facility] Address [address] 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 PHONE ENGINEER * Telephone Encounter - Bernice Cohn RMA [...] CM to call her with a prognosis PHONE ENGINEER documented in this encounter Plan of Treatment Not on file documented as of this encounter Visit Diagnoses Not on filedocumented in this encounter Care Teams Biometry Teacher Relationship Specialty Start Date End Date Sj Benson MD [address] [facility] [place] [address] PCP - General Family Medicine 07/05/24 documented as of this encounter
--- OUTSIDE RECORDS SUMMARY | 2024-11-16 21:29 | XMS_ITS | Encounter Summary ---
Author Organization 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 MECHANIC Gender Identity Not on file Sexual Orientation Not on file documented as of this encounter Plan of Treatment Not on file documented as of this encounter Procedures Procedure Name Priority Date/Time Associated Diagnosis Comments US VEIN DUPLEX LOWER EXTREMITY BILATERAL COMPLETE ED Urgent/IP Urgent 10/09/2024 10:08 AM AVIATION MECHANIC documented in this encounter Results * US Vein Duplex Lower Extremity Bilateral Complete (10/09/2024 10:08 AM AVIATION MECHANIC) Anatomical Region Laterality Modality Vascular Bilateral Ultrasound 10/09/2024 9:49 AM AVIATION MECHANIC Narrative 10/09/2024 11:51 AM AVIATION MECHANIC [facility] - Department of Vascular Surgery, Vascular Laboratory [address] [place] [address] Lower Extremity Venous Ultrasound Report Patient Name: RYAN DELGADO F : 1950 (74y ) Study Date: 10/09/2024 9:49:45 AM Gender: M Tech: AL Location: [id number] Ref Provider: OSIRIS OLIVEIRA ?Quality: Adequate Order [...] Pain in Leg, Right - FINDINGS: Performing Flow Trader: Niurka Krishna RVT. Right: Duplex scan reveals [...] above. Electronically Signed By: Tyshawn Mullins MD [facility] 2024-10-09 11:50:17 AVIATION MECHANIC Procedure Note Tyshawn Mullins MD - 10/09/2024 [facility] - Department of Vascular Surgery,Vascular Laboratory [address] [place] [address] Lower Extremity Venous Ultrasound Report Patient Name: RYAN DELGADO F : 1950 (74y ) Study Date: 10/09/2024 9:49:45 AM Gender: M Tech: AL Location: [id number] Ref Provider: OSIRIS OLIVEIRA Quality: Adequate Order [...] Pain in Leg, Right - FINDINGS: Performing Flow Trader: Niurka Krishna RVT. Right: Duplex scan reveals [...] above. 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
--- OUTSIDE RECORDS SUMMARY | 2024-11-16 21:29 | XMS_ITS | Encounter Summary ---
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] Procedures MI ARTHRODESIS POSTERIOR/PSTLAT TQ 1NTRSPC THORACIC MI ROMERO EXC ISPI LES OTH/THN LUCIO IDRL THORACIC MI ARTHRODESIS PST/PSTLAT TQ 1NTRSPC EA ADDL NTRSPC MI POSTERIOR SEGMENTAL INSTRUMENTATION 3-6 VRT SEG MI AUTOGRAFT SPINE SURGERY LOCAL FROM SAME INCISION MI ALLOGRAFT FOR SPINE SURGERY ONLY MORSELIZED FUSION SPINAL - POSTERIOR LUMBAR/THORACIC WITH INSTRUMENTATION; T3-5 posterior spinal fusion with 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 LAMINECTOMY THORACIC DECOMPRESSION SPINAL CORD MONITORING Referral ID Status Reason Start Date Expiration Date Visits Re quested Visits Authorized [id number] 1 1 Encounter Details Date Type Department Care Team (Latest Contact Info) Description 10/02/2024 5:29 AM FRONT DESK MONITOR - 10/14/2024 2:41 PM FRONT DESK MONITOR Hospital Encounter [facility] [address] [place] [address] James Robles MD [address] [place] [address] Thoracic myelopathy Discharge Disposition: Discharge to an [...] on file Legal Sex Male 12:23 PM FRONT DESK MONITOR Gender Identity Not on file Sexual Orientation Not on file documented as of this encounter Last Filed Vital Signs Vital Sign Reading Time Taken Comments Blood Pressure 109/63 10/14/2024 12:17 PM FRONT DESK MONITOR Pulse 60 10/14/2024 12:17 PM FRONT DESK MONITOR Temperature 36.6 ??C (97.9 ??F) 10/14/2024 1 2:17 PM FRONT DESK MONITOR Respiratory Rate 16 10/14/2024 12:1 7 PM FRONT DESK MONITOR Oxygen Saturation 97% 10/14/2024 12: 17 PM FRONT DESK MONITOR Inhaled Oxygen Concentration - - Weight 98.4 kg (216 lb 14.9 oz) 10/12/2024 2:30 PM FRONT DESK MONITOR Height 182.9 cm (6') 10/03/2024 2:04 PM FRONT DESK MONITOR Body Mass Index 29.42 10/03/2024 2:04 PM FRONT DESK MONITOR documented in this encounter Discharge Summaries * Osiris Guillen NP - 10/14/2024 11:16 AM CST Images from the original note were not included. Spine Inpatient Discharge Summary Admitting Provider: James Robles MD Discharge Provider: James Robles MD Primary Care Physician at Discharge: Sj Benson MD [phone] Admission Date: 10/02/2024 Discharge Date: 10/14/2024 Primary [...] NS 07/16/2025 10:00 AM Jarocho Looney MD [facility] Chem/LFT Lab History Latest Ref Rng [...] says it's OK. -Do not do any template fitter that cause you to twist, push or [...] James Robles MD at 10/14/2024 1:14 PM FRONT DESK MONITOR T DESK MONITOR T DESK MONITOR documented in this encounter Discharge Instructions * Discharge Instructions* Dc Ott NP - 10/09/2024 6:37 AM FRONT DESK MONITOR Discharge Instructions Thoracic Laminectomy Your doctor has [...] blood pressure), call your family doctor or electrotyper. You will be given a prescription for [...] donot hear regarding an appointment, please call [phone] - Neurosurgery: You should follow up in Dr. Robles's clinic in 4-6 weeks with xrays of your back. If you do not have a follow-up appointment, call to schedule one. Please arrive 30 minutes prior to your scheduled appointment. Phone numbers Appointment Scheduling: Doctor???s Office: Dr. James Robles, After hours emergency: or T DESK MONITOR T DESK MONITOR T DESK MONITOR T DESK MONITOR T DESK MONITOR * Attachments The following attachments cannot be sent through Care Everywhere. * Deep Vein Thrombosis (AfterCare(R) Instructions(ER/ED)) ([place] Citizen) * Apixaban (By mouth) ([place] Citizen) documented in this encounter Medications at Time [...] Comment s Discharge to an Rehab facility [facility] documented in this encounter Progress Notes * Marla Larson RN - 10/14/2024 9:42 AM CST 10/13/24 1440 Discharge Summary Discharge Disposition Acute Rehab Specify Facility [facility] Contact Number [phone] Morris Discharge Records Transfer Form Completed;Chart Copied Recommended Discharge Level of Care Acute Rehab Actual Discharge Level of Care Acute Rehab Does Actual Level of Care Match Care Team Recommendation? Yes Post Acute Care Plan Home Care Services N/A OP Services N/A DME N/A Post Acute Care Facility Yes Referral Status Accepted Accepted Post Acute Care Location and Contact [facility] Accepted Post Acute Care Discharge Additional Assistance Does the patient need discharge transport arranged? Yes Type of Transportation Ambulance/EMS Has discharge transport been arranged? Yes Details of Transportation [facility] [phone] trip # [id number] D/C Transport Anticipated Date 10/14/24 D/C Transport Anticipated Time 1300 Per medical team, patient is medically stable for discharge at this time. Patient has been acceptedto [facility]. CM spoke with the patient/family, admissions, medical [...] Patient/family informed patient may require ambulance transport. ict development manager informed patient/family that even if the patient's insurance benefit includes ambulance transport, it may not cover the full cost of the transportation. The patient may be responsible for any epy-wo-tdocot cost, includingmileage beyond the nearest appropriate facility. Patient/family voiced understanding. No further case management needs identified at this time T DESK MONITOR * Bladimir Clark MD - 10/14/2024 7:17 [...] James Robles MD at 10/14/2024 1:14 PM FRONT DESK MONITOR T DESK MONITOR T DESK MONITOR * Tiffanie Tirado, PT - 10/13/2024 3:09 [...] treatment team and contact the PT or VP MARKETING SERVICES AND SKIN currently assigned to this patient. If a physical therapy clinician is not assigned to this patient, please call [phone]. 10/13/24 1509 PT Last Visit Session Type [...] 2 reps with WW, 1 reps with BRIDGE MANAGER Transfers 2 Transfer From 2 Bed Transfer [...] assist: 10/07/24 10/14/24 -- Goal Details: supervision T DESK MONITOR * Harley Allen, OT - 10/13/2024 2:58 [...] not assigned to this patient, please call [phone]. 10/13/24 3632 General Session Type Treatment (Co-tx with PT) [...] tasks with mod A 10/04/24 10/26/24 -- T DESK MONITOR * Pavel Sheets MD - 10/13/2024 6:36 [...] - Heparin gtt (goal 46-70) Dispo rehab ([facility]) DVT prophylaxis: lovenox Responsible team (call resident in bold with questions) Kortney Dean Note created by Pavel Sheets MD on 10/13/2024 at 6:36 AM. Cosigned by James Robles MD at 10/13/2024 8:44 AM FRONT DESK MONITOR T DESK MONITOR T DESK MONITOR * Harley Allen, OT - 10/12/2024 10:11 [...] not assigned to this patient, please call [phone]. 10/12/24 1011 General Session Type Treatment OT [...] tasks with mod A 10/04/24 10/26/24 -- T DESK MONITOR * Tiffanie Tirado, PT - 10/11/2024 2:40 [...] treatment team and contact the PT or VP [employer] currently assigned to this patient. If a physical therapy clinician is not assigned to this patient, please call [phone]. 10/11/24 1440 PT Last Visit Session Type [...] assist: 10/07/24 10/14/24 -- Goal Details: supervision T DESK MONITOR * Wild Perez MD - 10/11/2024 6:09 [...] Heparin gtt (goal 46-70) restarted Dispo rehab ([facility] referral sent 10/06) DVT prophylaxis: lovenox Responsible team (call resident in bold with questions) Chris Dean Note created by Wild Perez MD on 10/11/2024 at 6:08 PM. Cosigned by James Robles MD at 10/11/2024 7:37 PM FRONT DESK MONITOR T DESK MONITOR T DESK MONITOR * Nohemi Zuleta, OT - 10/10/2024 1:16 [...] not assigned to this patient, please call [phone]. 10/10/24 8134 General Session Type Treatment OT Received On [...] tasks with mod A 10/04/24 10/11/24 -- T DESK MONITOR * Wild Perez MD - 10/10/2024 8:01 [...] James Robles MD at 10/10/2024 9:20 AM FRONT DESK MONITOR T DESK MONITOR T DESK MONITOR * Keyla Connolly, CAITLIN - 10/09/2024 5:06 [...] RD following. Keyla Connolly MS RD LD #[phone] T DESK MONITOR * Rae Soni - 10/09/2024 11:08 AM [...] treatment team and contact the PT or VP [employer] currently assigned to this patient. If a physical therapy clinician is not assigned to this patient, please call [phone]. 10/09/24 1108 PT Last Visit Session Type [...] Mike Estrada, PT at 10/09/2024 1:58 PM FRONT DESK MONITOR T DESK MONITOR T DESK MONITOR * Wild Perez MD - 10/09/2024 7:40 [...] James Robles MD at 10/10/2024 9:20 AM FRONT DESK MONITOR T DESK MONITOR T DESK MONITOR * Wild Perez MD - 10/08/2024 6:32 [...] Miles Rodrigez MD at 10/08/2024 9:44 PM FRONT DESK MONITOR T DESK MONITOR T DESK MONITOR * Nicko Zee - 10/07/2024 2:08 PM [...] treatment team and contact the PT or VP [employer] currently assigned to this patient. If a physical therapy clinician is not assigned to this patient, please call [phone]. 10/07/24 1408 PT Last Visit Session Type [...] Roe Calles, PT at 10/07/2024 3:15 PM FRONT DESK MONITOR T DESK MONITOR T DESK MONITOR * Osiris Guillen NP - 10/06/2024 2:41 PM CST Drain Removal Note [place] drain x1 removed without difficulty. Sutures removed, drain pulled, tubing intact upon removal. Sterile 2x2 dressing and tape placed over insertion site. No erythema noted. Patient tolerated procedure well. RN notified of removal. Plan: - Okay to remove dressing tomorrow and leave site open to air. Osiris Guillen NP T DESK MONITOR * Tiffanie Tirado, PT - 10/06/2024 1:34 [...] treatment team and contact the PT or VP [employer] currently assigned to this patient. If a physical therapy clinician is not assigned to this patient, please call [phone]. 10/06/24 1334 PT Last Visit Session Type [...] did not feel it when he went, MACHINE JOINER CEMENTER and RN notified. Pt unable to move [...] and from stand CGA 10/04/24 10/18/24 -- T DESK MONITOR * Harley Allen, OT - 10/06/2024 1:18 [...] not assigned to this patient, please call [phone]. 10/06/24 1318 General Session Type Treatment OT [...] tasks with mod A 10/04/24 10/11/24 -- T DESK MONITOR * Wild Perez MD - 10/06/2024 7:50 [...] (premix) 2,000 mg 2,000 mg intravenous Q24H FNEG dexAMETHasone (DECADRON) tablet 4 mg 4 mg [...] James Robles MD at 10/06/2024 1:09 PM FRONT DESK MONITOR T DESK MONITOR T DESK MONITOR * Willy Nguyen MD - 10/05/2024 12:41 [...] plan with the ICU team and other medical/customer relations consultant staff. Critical Care Time: I have spent 30 minutes in full attendance with this critically ill patient making frequent reassessments and decisions regarding this patient's complex medical care. Critical care time was exclusive of separately billable procedures, treating other patients and teaching time. Willy Nguyen MD Stroke/Neurointensive Attending T DESK MONITOR * Magali Ocampo, PT - 10/05/2024 9:34 [...] treatment team and contact the PT or VP [employer] currently assigned to this patient. If a physical therapy clinician is not assigned to this patient, please call [phone]. 10/05/24 6499 PT Last Visit Session Type Treatment PT [...] and from stand CGA 10/04/24 10/18/24 -- T DESK MONITOR * Florentin Dean MD - 10/05/2024 6:40 [...] (premix) 2,000 mg 2,000 mg intravenous Q24H [facility] dexAMETHasone (DECADRON) tablet 6 mg 6 mg oral Q6H [facility] docusate sodium (COLACE) capsule 100 mg 100 [...] James Robles MD at 10/05/2024 8:15 AM FRONT DESK MONITOR T DESK MONITOR T DESK MONITOR * Maria Isabel Unger MACHINE JOINER CEMENTER - 10/05/2024 6:05 AM CST Neuro Critical [...] legs and feet bilaterally and arrives to [facility] for posterior lumbar-thoracic spinal fusion with instrumentation [...] fluids: IV SL Flushes: None Last BM: [employer] # Nutrition -- regular diet -- encourage [...] mg daily CODE STATUS: Full Code [facility] Maria Isabel Unger NP Cosigned by Willy Nguyen MD at 10/06/2024 7:25 AM FRONT DESK MONITOR T DESK MONITOR T DESK MONITOR * Nadia Moulton - 10/04/2024 2:37 PM [...] treatment team and contact the PT or VP [employer] currently assigned to this patient. If a physical therapy clinician is not assigned to this patient, please call [phone]. 10/04/24 3822 General Chart Reviewed Yes Session Type Evaluation [...] Using Wheeled walker Prior Function Level of [place] Independent with ADLs;Independent with ambulation;Needs assistance with homemaking Lives With Spouse Receives Help From Spouse/Significant other (experimental rocket sled mechanic) Fall within the last 6 months Yes [...] with Outstretched Arm While Standing 0 9. Rn Building Object from Floor from a Standing Position [...] Arin Noriega, PT at 10/04/2024 4:26 PM FRONT DESK MONITOR T DESK MONITOR T DESK MONITOR * Taty Quezada, OT - 10/04/2024 11:03 [...] not assigned to this patient, please call [phone]. 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 pastry internship assist) Vocational/Occupation (not working) Fall within the [...] name and address after me Jeffrey Adams [address] [place] [address] Without looking at the clock, tell me [...] perform toilet transfer with mod A to [facility] 10/04/24 10/11/24 -- Problem: OT Misc Start Date: 10/04/24 Goal Start Date Expected End Date End Date OT LTG - Pt will complete Adls with modified independence 10/04/24 12/01/24 -- Problem: Toileting Start Date: 10/04/24 Goal Start Date Expected End Date End Date STG - Patient will complete toileting tasks with mod A 10/04/24 10/11/24 -- T DESK MONITOR * Keri Ramon MD - 10/04/2024 8:28 AM CST Critical care note I have seen and examined this patient on the day of service. I have reviewed and confirmed the history, vitals, medications, laboratory and radiographic data with the ICU team. I have reviewed and discussed my treatment plan with the ICU team and other medical/customer relations consultant staff as documented in the note [...] time. Keri Ramon M.D. Attending Physician, Neurocritical Evs TechTransportation Logistics Internship, Department of Neurology T DESK MONITOR * Florentin Dean MD - 10/04/2024 6:40 [...] James Robles MD at 10/04/2024 9:00 PM FRONT DESK MONITOR T DESK MONITOR T DESK MONITOR * Tamanna Porras NP - 10/04/2024 6:16 [...] legs and feet bilaterally and arrives to [facility] for posterior lumbar-thoracic spinal fusion with instrumentation [...] Adult Diet Regular Diet effective now Question: ([facility]) Diet type Answer: Regular 10/02/241932 IV fluids: NS @ 10 ml/hr carrier Flushes: n/a Last BM: [employer] # Nutrition -- regular diet -- bowel [...] Keri Ramon MD at 10/04/2024 3:53 PM FRONT DESK MONITOR T DESK MONITOR T DESK MONITOR * Wild Perez MD - 10/03/2024 7:42 [...] James Robles MD at 10/03/2024 8:15 AM FRONT DESK MONITOR T DESK MONITOR T DESK MONITOR Associated attestation - James Robles MD - 10/03/2024 8:15 AM FRONT DESK MONITOR I have seen and examined the patient [...] Incision dressed, drain x1 [place] [address] NNICU MAP>110 Dex 6q6 Diet: Advance as tolerated Antibiotics: Ancef & Vancomycin x 24hrs Activity Restrictions: No activity restrictions Imaging required: None If there are any issues or questions, please page Wild Preez MD at [phone] Wild Perez MD T DESK MONITOR documented in this encounter H&P Notes * [...] legs and feet bilaterally and arrives to [facility] for posterior lumbar-thoracic spinal fusion with instrumentation [...] Adult Diet Regular Diet effective now Question: ([facility]) Diet type Answer: Regular 10/02/241932 IV fluids: NS @ 100 ml/hr Flushes: n/a Last BM: VP [employer] # Nutrition -- ADAT -- bowel reg [...] Keri Ramon MD at 10/04/2024 3:53 PM FRONT DESK MONITOR T DESK MONITOR T DESK MONITOR * Meghan Major DO - 10/02/2024 6:46 [...] resection LAMINECTOMY THORACIC DECOMPRESSION SPINAL CORD MONITORING T DESK MONITOR T DESK MONITOR Source Note - Jeronimo Burch NP - 09/13/2024 10:58 AM CDT Images from the original note were not included. [facility] for Preoperative Assessment and Planning Preoperative Evaluation Record Evaluation type/location: [facility] Planned procedure site: [facility] (Pods 2/3/5/SENIOR LOAN OFFICER) Date: 09/13/24 Anesthesia Evaluation Lili Delgado is [...] 2020. Pertinent negatives: hypertension ; CAD ; MS ; CABG ; valvular heart disease; valve [...] vein thrombosis (DVT) of upper extremity (CMS/HCC) ([facility]) 09/29/2021 Essential (primary) hypertension 08/04/2021 Abnormal EKG [...] up:PIV placed w/o complication Ti Pressley RN T DESK MONITOR * Jessica Fernández RN - 10/03/2024 11:32 [...] = Cosigned By Initials Name Dmitry Rondon, lease broker Access Documentation (Last 4 Hours) [facility] Additional [...] RN Plan: Follow up: Jessica Fernández RN T DESK MONITOR * Olaf Pena III, MD - 10/02/2024 [...] using the electrical stimulator integrated into the [email or web address] evoked potential machine. Bilateral TcMEPs were recorded [...] all changes at the times they occurred. T DESK MONITOR documented in this encounter Consult Notes * [...] with AC x6 months, who presented to [facility] for T3-5 laminectomy/ decompression and intradural arachnoid [...] with AC x6 months, who presented to [facility] for T3-5 laminectomy/ decompression and intradural arachnoid [...] to be discussed in detail with outpatient Vp Client Services). Heme f/u with Dr Salmon in about 3 months has been requested. Thank you for allowing us to participate in the care of Mr Delgado and we will continue to follow peripherally. Please call the Hematology service with any additional questions or concerns. This case was discussed with my attending physician Dr Salmon, who agrees with the above mentionedassessment and plan. Pg [phone] Weekdays 8AM-4PM Weeknights 4PM - 8AM, all day on Weekends, all day on holidays and my days off work, please contactthe on-call fellow at [phone] For patients or family members viewing this note through [employer] programs. This note was written as a [...] Jason Salmon MD at 10/15/2024 6:32 PM FRONT DESK MONITOR T DESK MONITOR T DESK MONITOR * Mary Lou Jack MD - 10/09/2024 [...] months. In 07/2021 he also saw OSH sheep herder Dr. Saez for pre-op eval, and was [...] Adopted so unsure of family history. Possible MS in father Social Hx: reports that he [...] 5PM or on weekends, please page the payment rep mobile phone salesperson with any questions or concerns. Mary Lou Mayfield Ma, MD 11:30 AM 10/09/24 Cosigned by Sofia Ochoa MD at 10/10/2024 2:53 PM FRONT DESK MONITOR T DESK MONITOR T DESK MONITOR T DESK MONITOR T DESK MONITOR Associated attestation - Sofia Ochoa MD - 10/10/2024 2:53 PM FRONT DESK MONITOR I have seen and examined the patient [...] The phone number for our clinic is [phone] - Urology will sign off. Thank you for allowing us to participate in this patient's care. To reach the urology consult resident from 6:00 to 18:00 (Wednesday-Wednesday), please call [phone].If you want to contact Urology consults after hours (18:00 to 6:00) and over the weekend, please call the pad making machine operator Neha Templeton NP T DESK MONITOR documented in this encounter Nursing Notes * Jaimie Cuirel RN - 10/11/2024 6:51 PM CST [id number] Alert and appropriate. Medicated for pain. Zheng to gravity. Tolerating diet. Heparin gttper nomogram. IVF as ordered. Up in chair. Total lift back to bed. See labs, flowsheets. T DESK MONITOR * Kristin Land RN - 10/05/2024 9:37 PM CST Patient transferred to room [address] [place] [address]. Neuro status and VSS. Bedside shift report given to MARK Fox. Patient belongings transferred w/ pt, and are at bedside. T DESK MONITOR * Melia Maria RN - 10/02/2024 4:23 [...] not unexpected. Neurosurgery at bedside assessing patient. T DESK MONITOR T DESK MONITOR documented in this encounter Miscellaneous Notes * Plan of Care - Marla Larson RN - 10/13/2024 2:12 PM CST Per Medical Chart/Rounds/IDR: Heparin infusion. Marce replaced ADD: 10/14 Plan/referrals made/in place: [facility] following Transportation: [id number] F/U Appointments: Patient to follow up with spinal surgery Plan for weekend discharge: [facility] following. Liaison Stephanie [phone] mobile phone salesperson for this weekend. [id number] on hole, trip # [phone]. Discharge packet initiated and placed by patient's paper chart folder. Will follow. T DESK MONITOR T DESK MONITOR * Plan of Care - Marla Larson [...] and ensure patient has continuum of care. Music Industry Intern will continue to follow and assist with discharge planning as needed T DESK MONITOR * Plan of Care - Marla Larson [...] and ensure patient has continuum of care. Music Industry Intern will continue to follow and assist with discharge planning as needed T DESK MONITOR T DESK MONITOR * Plan of Care - Joyce Guillen [...] VS, I/O, pain, and maintain safe environment. Long-Term Patient Centered Goal for Treatment: Get better and go home Summary: Pt resting comfortably in bed, set up for breakfast. T DESK MONITOR * Plan of Care - Mauricio Esparza RN - 10/12/2024 6:52 AM FRONT DESK MONITOR Goals: Clinical Goals for the Shift: VSS, monitor labs, management of pain, remain free from falls, promote rest and comfort Rn Radiology Patient Centered Goal for Treatment: Get better [...] impaired skin integrity will decrease Outcome: Progressing T DESK MONITOR * Plan of Care - Neville Larson [...] free from falls, promote rest and comfort Long-Term Patient Centered Goal for Treatment: Get better and go home Summary: VSS, A&O x4, controlled pain with pain medications. Pt resting between care. Fall precautions in place. Call light in reach. T DESK MONITOR * Plan of Care - Neha Velasquez RN - 10/11/2024 12:46 PM FRONT DESK MONITOR Goals: Clinical Goals for the Shift: VSS, monitor labs, management of pain, remain free from falls, promote rest and comfort Rn Radiology Patient Centered Goal for Treatment: Get better [...] of mobility impairment will improve Outcome: Progressing T DESK MONITOR * Plan of Care - Marla Larson RN - 10/11/2024 9:58 AM CST Per Rounds: Possible restart heparin infusion ADD: 10/12 vs 10/13 [facility]. Patient's Identified Problem/Goal Problem: Ensure acute medical needs are met and patient has a safe discharge plan. Goal: Secure a discharge plan that patient/family are agreeable with and ensure patient has continuum of care. Music Industry Intern will continue to follow and assist with discharge planning as needed T DESK MONITOR * Plan of Care - [place] - [...] precautions in place. Call light in reach. T DESK MONITOR * Consults, Subsequent - Claudia Ryan NP - 10/10/2024 3:48 PM FRONT DESK MONITOR Images from the original note were not [...] with AC x6 months, who presented to [facility] for T3-5 laminectomy/ decompression and intradural arachnoid [...] consider: Enoxaparin 30mg BID---> 10/16/2024 Heparin gtt [id number]---> if no bleeding concerns, switch to Apixaban 5mg BID Vs. Heparin gtt with PTT goal per primary team and no bolus--->10/16/2024 Heparin gtt with standard PTT goal 60-90 [id number]---> Apixaban 5mg BID if no concern for [...] to call with questions or concerns. Pg [phone] Weekdays 8AM-4PM. Weeknights 4PM - 8AM, all day on Weekends, all day on holidays and my days off work, please contactthe on-call fellow at [phone] For patients or family members viewing this note through [employer] programs. This note was written as a [...] Sherry Calles MD at 10/13/2024 2:48 PM FRONT DESK MONITOR T DESK MONITOR T DESK MONITOR * Significant Event - Anibal Camacho MD - 10/10/2024 9:45 AM FRONT DESK MONITOR Interventional Radiology Consult Resolution Note Reason for [...] discussed with Dr. Huntley, the IR Attending. T DESK MONITOR * Plan of Care - Marla Larson [...] and ensure patient has continuum of care. Music Industry Intern will continue to follow and assist with discharge planning as needed T DESK MONITOR * Plan of Care - Neville Larson [...] precautions in place. Call light in reach. T DESK MONITOR * Plan of Care - Geovanni Bell [...] of mobility impairment will improve Outcome: Progressing T DESK MONITOR * Plan of Care - Marla Larson RN - 10/09/2024 9:19 AM CST Per Rounds: Zheng replaced. EGK for chest pain. Chest x-rays, dopplers. ADD: 10/10 Plan & referrals made/in place: [facility] following. Patient's Identified Problem/Goal Problem: Ensure acute medical needs are met and patient has a safe discharge plan. Goal: Secure a discharge plan that patient/family are agreeable with and ensure patient has continuum of care. Music Industry Intern will continue to follow and assist with discharge planning as needed T DESK MONITOR * Plan of Care - Sia Mathias [...] Stability: Monitor vital signs, rhythm, and trends T DESK MONITOR * Plan of Care - Geovanni Bell [...] Understanding discharge needs will improve Outcome: Progressing T DESK MONITOR * Plan of Care - Skinny Dubose [...] oxycodone, carleen lift, will continue to monitor. T DESK MONITOR * Plan of Care - Marla Larson RN - 10/06/2024 10:57 AM FRONT DESK MONITOR Music Industry Intern noted patient has been recommended for Inpatient Rehab by PT/OT. Music Industry Intern met withthe patient at bedside to discuss recommendations by therapy and to work on a potential discharge disposition plan. Music Industry Intern provided education to patien on the rehabilitation process. Patient reported being interested in placement for rehabilitation. ict development manager provided a list of Inpatient Rehab Facility choices to patient. [facility] out additional [facility] via [facility]. CM awaiting acceptance from an Inpatient Rehab Facility and will continue to work on discharge planning with patient and family. T DESK MONITOR * ECIN Note - Marla Larson RN [...] assess Unable to assess Unable to assess T DESK MONITOR * ECIN Note - Marla Larson RN - 10/06/2024 10:56 AM CST Images from the original note were not included. 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 - Vocational/Occupation -- not working - [...] name and address after me Jeffrey Adams [address] [place] [address] - Without looking at the clock, tell [...] skin integrity;Prolonged dependence for self care tasks [facility] Recommend Inpatient Rehab/Acute Rehab due to Ability [...] 72 Hours PT Evaluation Row Name 10/04/24 0817 Chart Reviewed Yes -GM (r) LG (c) [...] walker -GM (r) LG (c) Level of [place] Independent with ADLs;Independent with ambulation;Needs assistance with homemaking -GM (r) LG (c) Lives With Spouse -GM (r) LG (c) Receives Help From Spouse/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 Rn Building Object from Floor from a Standing Position [...] Progress Notes signed by Magali Ocampo, PT T DESK MONITOR * ECIN Note - Marla Larson RN - 10/06/2024 10:56 AM CST Patient Information: Meds and Admin Active Only All Meds/Most Recent Administrations acetaminophen (TYLENOL) tablet 1,000 mg [[id number]] Ordering Provider: James Robles MD Status: Completed (Past End Date/Time) Ordered On: 10/02/24547 Starts/Ends: 10/02/24629 - 10/02/24614 Ordered Dose (Remaining/Total): 1,000 mg (0/1) Route: oral Frequency: Once Ordered Rate/Order Duration: -- / -- Admin Instructions: Administer 60 minutes prior to surgery. Timestamps Action Dose Route Other Information 10/02/24614 Given 1,000 mg oral Performed by: Juanis Lozano RN Scanned Package: 9806-5447-59, 0648-2478-86 gabapentin (NEURONTIN) capsule 300 mg [[id number]] Ordering Provider: James Robles MD Status: Completed (Past End Date/Time) Ordered On: 10/02/24547 Starts/Ends: 10/02/24629 - 10/02/24614 Ordered Dose (Remaining/Total): 300 mg (0/1) Route: oral Frequency: Once Ordered Rate/Order Duration: -- / -- Admin Instructions: Administer 60 minutes prior to surgery. Timestamps Action Dose Route Other Information 10/02/24614 Given 300 mg oral Performed by: Juanis Lozano RN Scanned Package: 38979-642-78 ceFAZolin (ANCEF) 2,000 mg/20 mL in sterile water (premix) 2,000 mg [[id number]] Ordering Provider: James Robles MD Status: Completed [...] in sodium chloride 0.9% (premix) 1,500 mg [[id number]] Ordering Provider: James Robles MD Status: Completed [...] Morales MD oxyCODONE (ROXICODONE) tablet 5 mg [[id number]] Ordering Provider: Vance Morales MD Status: Completed [...] Performed by: Melia Maria RN Scanned Package: 27618-457-09 baclofen (LIORESAL) tablet 10 mg [[id number]] Ordering Provider: Wild Perez MD Status: Dispensed Ordered On: 10/02/24 154 Start: 10/02/24 173 Ordered Dose (Remaining/Total): 10 mg (--/--) Route: oral Frequency: 2 times daily Ordered Rate/Order Duration: -- / -- Timestamps Action Dose Route Other Information 10/06/24 0851 Given 10 mg oral Performed by: Skinny Dubose RN Scanned Package: [address]-[address] (CYMBALTA) extended release capsule 30 mg [[id number]] Ordering Provider: Wild Perez MD Status: Dispensed [...] Performed by: Skinny Dubose RN Scanned Package: 57238-241-70 finasteride (PROSCAR) tablet 5 mg [[id number]] Ordering Provider: Tamanna Porras NP Status: Dispensed Ordered On: 10/02/241932 Start: 10/03/24 0900 Ordered Dose (Remaining/Total): 5 mg (--/--) Route: oral Frequency: Every morning Ordered Rate/Order Duration: -- / -- Admin Instructions: Do not crush, break, or open. Timestamps Action Dose Route Other Information 10/06/2451 Given 5 mg oral Performed by: Skinny Dubose RN Scanned Package: 65621-124-48 sodium chloride 0.9% flush 0.5-20 mL [[id number]] Ordering Provider: Wild Perez MD Status: Verified Ordered On: 10/02/241932 Start: 10/02/241932 Ordered Dose (Remaining/Total): 0.5-20 mL (--/--) Route: intra-catheter Frequency: As needed Ordered Rate/Order Duration: -- / -- Admin Instructions: Flush volume based on line type and size. Flush before and after each use. (No admins scheduled or recorded for this medication) Carrier Fluids for Secondary Infusion - 0.9% Sodium Chloride [[id number]] Ordering Provider: Wild Perez MD Status: Verified [...] this medication) oxyCODONE (ROXICODONE) tablet 5 mg [[id number]] Ordering Provider: Wild Perez MD Status: Verified [...] this medication) ondansetron (ZOFRAN) injection 4 mg [[id number]] Ordering Provider: Wild Perez MD Status: Verified Ordered On: 10/02/241932 Start: 10/02/241932 Ordered Dose (Remaining/Total): 4 mg (--/--) Route: intravenous Frequency: Every 6 hours PRN Ordered Rate/Order Duration: -- / 2 Minutes Admin Instructions: Proceed to trimethobenzamide if no relief within 30 minutes. (No admins scheduled or recorded for this medication) famotidine (PEPCID) tablet 20 mg [[id number]] Ordering Provider: Wild Perez MD Status: Dispensed Ordered On: 10/02/241932 Start: 10/02/242099 Ordered Dose (Remaining/Total): 20 mg (--/--) Route: oral Frequency: Every 12 hours scheduled Ordered Rate/Order Duration: -- / -- Admin Instructions: If able to swallow tablets. Timestamps Action Dose Route Other Information 10/06/24 0851 Given 20 mg oral Performed by: Skinny Dubose RN Scanned Package: 19951-613-27 docusate sodium (COLACE) capsule 100 mg [[id number]] Ordering Provider: Wild Perez MD Status: Dispensed Ordered On: 10/02/241932 Start: 10/02/242099 Ordered Dose (Remaining/Total): 100 mg (--/--) Route: oral Frequency: 2 times daily Ordered Rate/Order Duration: -- / -- Admin Instructions: If able to swallow capsules. Hold for diarrhea. Timestamps Action Dose Route Other Information 10/06/2451 Given 100 mg oral Performed by: Skinny Dubose RN Scanned Package: 50959-467-59 senna (SENOKOT) tablet 1 tablet [[id number]] Ordering Provider: Wild Perez MD Status: Dispensed Ordered On: 10/02/241932 Start: 10/02/242099 Ordered Dose (Remaining/Total): 1 tablet (--/--) Route: oral Frequency: 2 times daily Ordered Rate/Order Duration: -- / -- Admin Instructions: If able to swallow tablets. Hold for diarrhea. Timestamps Action Dose Route Other Information 10/06/2451 Given 1 tablet oral Performed by: Skinny Dubose RN Scanned Package: 5289-9542-04 polyethylene glycol (MIRALAX) packet 17 g [[id number]] Ordering Provider: Wild Perez MD Status: Dispensed Ordered On: 10/02/241932 Start: 10/02/242014 Ordered Dose (Remaining/Total): 17 g (--/--) Route: oral Frequency: Daily Ordered Rate/Order Duration: -- / -- Admin Instructions: Hold for diarrhea. Timestamps Action Dose Route Other Information 10/06/2451 Given 17 g oral Performed by: Skinny Dubose RN Scanned Package: 85760-723-26 bisacodyL (DULCOLAX) suppository 10 mg [[id number]] Ordering Provider: Wild Perez MD Status: Dispensed Ordered On: 10/02/241932 Start: 10/02/241932 Ordered Dose (Remaining/Total): 10 mg (--/--) Route: rectal Frequency: Daily PRN Ordered Rate/Order Duration: -- / -- Admin Instructions: If not bowel movement in 48 hours. Timestamps Action Dose Route Other Information 10/05/24 2337 Given 10 mg rectal Performed by: Kay Aaron RN Scanned Package: 5168-8174-99 enoxaparin (LOVENOX) syringe 30 mg [[id number]] Ordering Provider: Wild Perez MD Status: Dispensed Ordered On: 10/02/241932 Start: 10/03/242099 Ordered Dose (Remaining/Total): 30 mg (--/--) Route: subcutaneous Frequency: Daily (for enoxaparin) Ordered Rate/Order Duration: -- / -- Timestamps Action Dose Route / Site Other Information 10/05/241957 Given 30 mg subcutaneous Left Lower Abdomen Performed by: Kristin Land RN Scanned Package: 38260-198-04 ceFAZolin (ANCEF) 2,000 mg/20 mL in sterile water (premix) 2,000 mg [[id number]] Ordering Provider: Wild Perez MD Status: Completed [...] Performed by: Meliza Koch RN Scanned Package: [address]-0 vancomycin 1500 mg/515 mL in sodium chloride 0.9% (premix) 1,500 mg [[id number]] Ordering Provider: Wild Perez MD Status: Completed (Past End Date/Time) Ordered On: 10/02/24 193 Starts/Ends: 10/02/242014 - 10/02/242207 Ordered Dose (Remaining/Total): 1,500 mg (0/1) Route: intravenous Frequency: Once Ordered Rate/Order Duration: -- / 90 Minutes Admin Instructions: Administer 12 hours after pre-operative dose. Timestamps Action Dose / Duration Route Other Information 10/02/242037 New Bag 1,500 mg 90 Minutes intravenous Performed by: Melia Marai RN Scanned Package: 4118-4178-98 sodium chloride 0.9% bolus 1,000 mL [[id number]] Ordering Provider: Zora Martínez MD Status: Completed [...] Performed by: Alida Larry RN Scanned Package: 9497-7139-53 magnesium sulfate 2 g/50 mL in water (premix) 2 g [[id number]] Ordering Provider: Laura Sheets NP Status: Completed [...] mL in sterile water (premix) 2,000 mg [[id number]] Ordering Provider: Geraldine Leary NP Status: Dispensed [...] Performed by: Skinny Dubose RN Scanned Package: [address]-3 azithromycin (ZITHROMAX) tablet 500 mg [[id number]] Ordering Provider: Geraldine Leary NP Status: Completed (Past End Date/Time) Ordered On: 10/04/24 0850 Starts/Ends: 10/04/24 0930 - 10/06/24 0851 Ordered Dose (Remaining/Total): 500 mg (0/3) Route: oral Frequency: Daily Ordered Rate/Order Duration: -- / -- Timestamps Action Dose Route Other Information 10/06/24850 Given 500 mg oral Performed by: Skinny Dubose RN Scanned Package: [address]-9, [address]-8 acetaminophen (TYLENOL) tablet 1,000 mg [[id number]] Ordering Provider: Geraldine Leary NP Status: Verified Ordered On: 10/05/24 1301 Start: 10/05/24 1315 Ordered Dose (Remaining/Total): 1,000 mg (--/--) Route: oral Frequency: Every 6 hours PRN Ordered Rate/Order Duration: -- / -- (No admins scheduled or recorded for this medication) dexAMETHasone (DECADRON) tablet 4 mg [[id number]] Ordering Provider: Cherry Hwang MD Status: Dispensed Ordered On: 10/05/24 1619 Starts/Ends: 10/05/24 1800 - 10/06/24 1759 Ordered Dose (Remaining/Total): 4 mg (1/4) Route: oral Frequency: Every 6 hours scheduled Ordered Rate/Order Duration: -- / -- Timestamps Action Dose Route Other Information 10/06/24 0512 Given 4 mg oral Performed by: Kay Aaron RN Scanned Package: 09518-145-13 dexAMETHasone (DECADRON) tablet 4 mg [[id number]] Ordering Provider: Cherry Hwang MD Status: Dispensed Ordered On: 10/05/241618 Starts/Ends: 10/06/241799 - 10/07/242158 Ordered Dose (Remaining/Total): 4 mg (3/3) Route: oral Frequency: Every 8 hours scheduled Ordered Rate/Order Duration: -- / -- (No admins scheduled or recorded for this medication) dexAMETHasone (DECADRON) tablet 2 mg [[id number]] Ordering Provider: Cherry Hwang MD Status: Dispensed Ordered On: 10/05/241618 Starts/Ends: 10/07/242199 - 10/08/242158 Ordered Dose (Remaining/Total): 2 mg (3/3) Route: oral Frequency: Every 8 hours scheduled Ordered Rate/Order Duration: -- / -- (No admins scheduled or recorded for this medication) dexAMETHasone (DECADRON) tablet 1 mg [[id number]] Ordering Provider: Cherry Hwang MD Status: Verified Ordered On: 10/05/241618 Starts/Ends: 10/08/242199 - 10/09/242158 Ordered Dose (Remaining/Total): 1 mg (3/3) Route: oral Frequency: Every 8 hours scheduled Ordered Rate/Order Duration: -- / -- (No admins scheduled or recorded for this medication) dexAMETHasone (DECADRON) tablet 1 mg [[id number]] Ordering Provider: Cherry Hwang MD Status: Verified Ordered On: 10/05/241618 Starts/Ends: 10/09/242199 - 10/10/242058 Ordered Dose (Remaining/Total): 1 mg (2/2) Route: oral Frequency: Every 12 hours scheduled Ordered Rate/Order Duration: -- / -- (No admins scheduled or recorded for this medication) dexAMETHasone (DECADRON) tablet 1 mg [[id number]] Ordering Provider: Cherry Hwang MD Status: Verified Ordered On: 10/05/24 1619 Starts/Ends: 10/11/24 0900 - 10/12/24 0859 Ordered Dose (Remaining/Total): 1 mg (11/22) Route: oral Frequency: Daily Ordered Rate/Order Duration: -- / -- (No admins scheduled or recorded for this medication) T DESK MONITOR * ECIN Note - Marla Larson RN [...] 10/06/24 0700 - 10/07/24 0659 Total Total [phone] 0805-5810 4206-3915 Total 7993-9297 6408-2262 7192-6066 Total Intake (ml) 4486.5 1142.6 20 630 182 8430 120 -- -- 120 Output (ml) 3720 1935 564 762 3404 2500 -- -- -- -- Net (ml) [...] On 10/03 1430 On 10/03 1200 On T DESK MONITOR * Plan of Care - Kay Aaron RN - 10/06/2024 3:29 AM FRONT DESK MONITOR Goals: Clinical Goals for the Shift: VSS, [...] Understanding discharge needs will improve Outcome: Progressing T DESK MONITOR * Provider Query - Tamanna Porras NP [...] RE. Lactic Acidosis. [Updated 2018Oct 16]. In: [employer] [Internet]. [facility]): [employer]; 2019-. Available from: https://www.ncbi.nlm.nih.gov/books/ICN139847/ https://www.[employer]/contents/fviqnd-qi-hkacco-acidosis https://www.[employer]/professional/cawtzprdt-ogz-wktffpnnr-disorders/acid -nsgl-qwucdmrupy-ghj-disorders/metabolic-acidosis https://www.[employer]/professional/joewhpvpo-rri-vwqmufwho-disorders/acid -reag-dfimgqpczd-oqf-disorders/respiratory-acidosis https://www.[employer]/professional/fmfzokvdi-amc-zrbtdsbjk-disorders/acid -jcfg-nqsqaloqgn-zbn-disorders/lactic-acidosis Guide to Clinical Validation, Documentation and Coding, [...] medical record. Respectfully Kannan LA RN CCDS [email or web address] [phone] T DESK MONITOR * Plan of Care - Eric Valdez [...] Understanding discharge needs will improve Outcome: Ongoing T DESK MONITOR * Plan of Care - Leonel Blackwell [...] Understanding discharge needs will improve Outcome: Progressing T DESK MONITOR * Plan of Care - Eric Valdez [...] Understanding discharge needs will improve Outcome: Ongoing T DESK MONITOR * Provider Query - Tamanna Porras NP [...] legs and feet bilaterally and arrives to [facility] for posterior lumbar-thoracic spinal fusion with instrumentation [...] Penicillin Streptomycin (high-level) Tetracycline Trimeth/Sulfa Vancomycin References [facility] Antibiogram 2021 [facility] Antibiogram 2021 [facility] Antibiogram 2021 From the ICD-10-CM Coding Guidelines, [...] medical record. Respectfully Kannan LA RN CCDS [email or web address] [phone] T DESK MONITOR * Provider Query - Tamanna Porras NP [...] legs and feet bilaterally and arrives to [facility] for posterior lumbar-thoracic spinal fusion with instrumentation [...] 2007 Page: 143 Effective with discharges: August [facility] Information [facility]: Cancer Fatigue From the ICD-10-CM Coding Guidelines, [...] medical record. Respectfully Kannan LA RN CCDS [email or web address] [phone] T DESK MONITOR * Initial Assessments - Saturnino Kennedy RN - 10/04/2024 9:35 AM FRONT DESK MONITOR CM Initial Assessment Interview Note Information Obtained From: Patient Admission Source: CPAP CAM SC Impression: Patient admitted to 9[address] NN[facility] post operative for T3-5 laminectomy and decompression, arachnoid cyst wall fenestration protocol. Plan Includes: ict development manager will monitor for post acute discharge needs such as therapy, nursing, medical equipment or agency referrals as indicated by the care team. Primary Source of Transportation: Does the patient need discharge transport arranged?: No If private car is appropriate at discharge, Reginald Thus [phone] will provide transport at discharge from hospital. Health Insurance Coverage: Medicare A & B, BCBS Federal Prescription Coverage: Yes Pharmacy: [id number] [place], [place] - [facility] [address] AT [address] [facility] [address] Primary Care Provider: Sj Benson MD Prior to Admission: Functional Status: Minimal assist with ADLs Primary Caregiver: Spouse (Reginald Thus [phone]) Support System: Spouse/Significant Other, Children Home Care Services: No Outpatient Services: No Durable Medical Equipment: Walker (wheeled) Living Arrangements: Spouse/significant other (Reginald Thus [phone]) Type of Residence: Private residence Steps in [...] car is appropriate at discharge, Spouse-Gricelda Delgado [phone] will provide transport at discharge from hospital. [...] Collaboration with Patient, Provider, Direct Care Nurse, Church Administrator, and other members of theHealth Care Team to assure needed interventions completed. 2. Return patient to optimal level of self-care post discharge. 3. Music Industry Intern will follow for Discharge Planning - interventions as needed 4. Anticipated level of care at discharge 5. Planned Discharge Disposition Saturnino Kennedy RN T DESK MONITOR * Plan of Care - Eric Valdez [...] and optimal renal function maintained Outcome: Ongoing T DESK MONITOR * Perioperative Nursing Note - Alida Larry RN - 10/03/2024 11:[address]K [address] Dr Martínez with neuro on-call updated with [...] Pt updated on patient and boarding status T DESK MONITOR T DESK MONITOR T DESK MONITOR * Perioperative Nursing Note - Alida Larry RN - 10/03/2024 10:[address] Wayne at bedside to evaluate arterial line T DESK MONITOR * Perioperative Nursing Note - Alida Larry RN - 10/03/2024 9:35 AM FRONT DESK MONITOR Neuro pager team contacted regarding continued MAP issues. Orders received. T DESK MONITOR * Perioperative Nursing Note - Alida Larry RN - 10/03/2024 8:42 AM FRONT DESK MONITOR Patient repositioned. Armboard placed to attempt to maintain arterial BP. Line quite positional andvaries with non-invasive pressure. T DESK MONITOR * Perioperative Nursing Note - Meliza Koch RN - 10/03/2024 5:26 AM CST Mr. Delgado slept soundly through the night, but was A&O x 4 on waking. His field court researcher were 5/5 bilaterally. His plantar flexion improved throughout the night. From 2200 to 0600, his plantar flexion LLE went from 3+/5+ to 5+/5+, and his RLE went from 1+/5+ to 2-3+/5+. His dorsiflexion LLE went from 3+/5+ to 5+/5+, and his RLE remained weak at 1+/5+. Phenylephrine was as high as 0.9mcg/kg/min to sustain MAP goal of >110. T DESK MONITOR * Brief Op Note - Wild Perez MD - 10/02/2024 3:26 PM CST Operative Progress Note Surgical Team: Surgeons and Role: * James Robles MD - Primary * Wild Perez MD - Resident - Assisting * Meghan Major DO - Fellow Anesthesiologist: Marimar Carr MD PhD Etcher Enameling: Vance Morales MD Spindle Plumber: Timo Bonilla RN Spindle Plumber Relief: Gabriela Sullivan RN Scrub Relief: Rae Starr RN Scrub: Joyce Zhou RN Attendant Self Service Store: Dejan Velásquez [facility] Scrub: May Carroll RN DATE OF [...] James Robles MD at 10/03/2024 8:13 AM FRONT DESK MONITOR T DESK MONITOR T DESK MONITOR * Op Note - James Robles MD - 10/02/2024 9:18 AM CST Surgeon: James Robles MD Roofing Machine Tender: Satish Major DO Preoperative diagnosis: Dorsal arachnoid [...] critical components of the procedure 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 Please note that her expert assistance was necessary given the lack of availability of a qualified resident. T DESK MONITOR documented in this encounter Plan of Treatment Pending Results Name Type Priority Associated Diagnoses Date /Time Hepatic function panel Lab Routine 8:12 PM FRONT DESK MONITOR Scheduled Orders Name Type Priority Associated Diagnoses Order Schedule Surgical pathology Pathology and Cytology Routine Thoracic myelopathy Release Upon Ordering for 1 Occurrences starting 10/02/2024 Hepatic function panel Lab Routine Once for 1 Occurrences starting 10/13/2024 until 10/13/2024 documented as of this encounter Procedures Procedure Name Priority Date/Time Associated Diagnosis Comments EGFR Routine 10/13/2024 8:12 PM FRONT DESK MONITOR PROTIME-INR STAT 10/13/2024 8:12 PM FRONT DESK MONITOR CBC WITHOUT DIFFERENTIAL Routine 10/13/2024 8:12 PM FRONT DESK MONITOR HEPATIC FUNCTION PANEL Routine 8:12 PM FRONT DESK MONITOR BASIC METABOLIC PANEL Routine 10/13/2024 8:12 PM FRONT DESK MONITOR PEP THERAPY Routine 10/13/2024 12:00 PM FRONT DESK MONITOR US VEIN DUPLEX LOWER EXTREMITY BILATERAL COMPLETE IP Routine 10/13/2024 9:43 AM FRONT DESK MONITOR APTT STAT 10/13/2024 6:24 AM FRONT DESK MONITOR PEP THERAPY Routine 10/13/2024 6:01 AM FRONT DESK MONITOR EGFR Routine 10/12/2024 9:40 PM FRONT DESK MONITOR APTT Routine 10/12/2024 9:40 PM FRONT DESK MONITOR CBC WITHOUT DIFFERENTIAL Routine 10/12/2024 9:40 PM FRONT DESK MONITOR BASIC METABOLIC PANEL Routine 10/12/2024 9:40 PM FRONT DESK MONITOR PEP THERAPY Routine 10/12/2024 6:00 PM FRONT DESK MONITOR PEP THERAPY Routine 10/12/2024 12:00 PM FRONT DESK MONITOR APTT STAT 10/12/2024 6:21 AM FRONT DESK MONITOR PEP THERAPY Routine 10/12/2024 6:01 AM FRONT DESK MONITOR APTT STAT 10/12/2024 12:54 AM FRONT DESK MONITOR EGFR Routine 10/11/2024 9:52 PM FRONT DESK MONITOR CBC WITHOUT DIFFERENTIAL Routine 10/11/2024 9:52 PM FRONT DESK MONITOR BASIC METABOLIC PANEL Routine 10/11/2024 9:52 PM FRONT DESK MONITOR PEP THERAPY Routine 10/11/2024 6:00 PM FRONT DESK MONITOR APTT STAT 10/11/2024 5:30 PM FRONT DESK MONITOR PEP THERAPY Routine 10/11/2024 12:00 PM FRONT DESK MONITOR PEP THERAPY Routine 10/11/2024 6:01 AM FRONT DESK MONITOR PEP THERAPY Routine 10/11/2024 12:00 AM FRONT DESK MONITOR EGFR Routine 10/10/2024 8:04 PM FRONT DESK MONITOR APTT STAT 10/10/2024 8:04 PM FRONT DESK MONITOR APTT STAT 10/10/2024 8:04 PM FRONT DESK MONITOR PROTIME-INR STAT 10/10/2024 8:04 PM FRONT DESK MONITOR CBC WITHOUT DIFFERENTIAL Routine 10/10/2024 8:04 PM FRONT DESK MONITOR BASIC METABOLIC PANEL Routine 10/10/2024 8:04 PM FRONT DESK MONITOR PEP THERAPY Routine 10/10/2024 12:00 PM FRONT DESK MONITOR CBC WITHOUT DIFFERENTIAL STAT 10/10/2024 11:51 AM FRONT DESK MONITOR APTT STAT 10/10/2024 11:36 AM FRONT DESK MONITOR PROTIME-INR STAT 10/10/2024 11:36 AM FRONT DESK MONITOR PEP THERAPY Routine 10/10/2024 6:01 AM FRONT DESK MONITOR EGFR Routine 10/10/2024 3:19 AM FRONT DESK MONITOR CBC WITHOUT DIFFERENTIAL Routine 10/10/2024 3:19 AM FRONT DESK MONITOR BASIC METABOLIC PANEL Routine 10/10/2024 3:19 AM FRONT DESK MONITOR PEP THERAPY Routine 10/10/2024 12:00 AM FRONT DESK MONITOR POCT GLUCOSE DEVICE Routine 10/09/2024 8 :41 PM FRONT DESK MONITOR PEP THERAPY Routine 10/09/2024 6:00 PM FRONT DESK MONITOR US VEIN DUPLEX LOWER EXTREMITY BILATERAL COMPLETE ED Urgent/IP Urgent 10/09/2024 10:08 AM FRONT DESK MONITOR XR CHEST 1 VIEW IP Routine 10/09/2024 7:55 AM FRONT DESK MONITOR PEP THERAPY Routine 10/09/2024 6:01 AM FRONT DESK MONITOR PEP THERAPY Routine 10/09/2024 12:00 AM FRONT DESK MONITOR EGFR Timed 10/08/2024 10:15 PM FRONT DESK MONITOR CBC WITHOUT DIFFERENTIAL Routine 10/08/2024 10:15 PM FRONT DESK MONITOR PHOSPHORUS Timed 10/08/2024 10:15 PM FRONT DESK MONITOR MAGNESIUM Timed 10/08/2024 10:15 PM FRONT DESK MONITOR COMPREHENSIVE METABOLIC PANEL Timed 10/08/2024 10:15 PM FRONT DESK MONITOR PEP THERAPY Routine 10/08/2024 6:00 PM FRONT DESK MONITOR PEP THERAPY Routine 10/08/2024 12:00 PM FRONT DESK MONITOR TROPONIN I HIGH-SENSITIVITY STAT 10/08/2024 11:36 AM FRONT DESK MONITOR LACTATE Timed 10/08/2024 8:38 AM FRONT DESK MONITOR PEP THERAPY Routine 10/08/2024 6:00 AM FRONT DESK MONITOR EGFR Routine 10/07/2024 10:19 PM FRONT DESK MONITOR CBC WITHOUT DIFFERENTIAL Routine 10/07/2024 10:19 PM FRONT DESK MONITOR BASIC METABOLIC PANEL Routine 10/07/2024 10:19 PM FRONT DESK MONITOR LACTATE, WHOLE BLOOD Timed 10/07/2024 9:09 AM FRONT DESK MONITOR URINALYSIS AND REFLEX TO MICROSCOPIC AND CULTURE Routine 10/07/2024 5:37 AM FRONT DESK MONITOR BLOOD CULTURE STAT 10/07/2024 5:37 AM FRONT DESK MONITOR BLOOD CULTURE STAT 10/07/2024 5:37 AM FRONT DESK MONITOR URINALYSIS, MICROSCOPIC ONLY Routine 10/07/2024 5:37 AM FRONT DESK MONITOR XR CHEST 1 VIEW IP Routine 10/07/2024 5:18 AM FRONT DESK MONITOR PEP THERAPY Routine 10/07/2024 12:00 AM FRONT DESK MONITOR LACTATE, WHOLE BLOOD Routine 10/06/2024 9:30 PM FRONT DESK MONITOR EGFR Routine 10/06/2024 9:16 PM FRONT DESK MONITOR CBC WITHOUT DIFFERENTIAL Routine 10/06/2024 9:16 PM FRONT DESK MONITOR BASIC METABOLIC PANEL Routine 10/06/2024 9:16 PM FRONT DESK MONITOR PEP THERAPY Routine 10/06/2024 6:00 PM FRONT DESK MONITOR PEP THERAPY Routine 10/06/2024 12:00 PM FRONT DESK MONITOR PEP THERAPY Routine 10/06/2024 6:01 AM FRONT DESK MONITOR EGFR Routine 10/05/2024 10:43 PM FRONT DESK MONITOR LACTATE, WHOLE BLOOD Routine 10/05/2024 10:43 PM FRONT DESK MONITOR CBC WITHOUT DIFFERENTIAL Routine 10/05/2024 10:43 PM FRONT DESK MONITOR BASIC METABOLIC PANEL Routine 10/05/2024 10:43 PM FRONT DESK MONITOR PEP THERAPY Routine 10/05/2024 6:12 PM FRONT DESK MONITOR PEP THERAPY Routine 10/05/2024 6:12 PM FRONT DESK MONITOR TROPONIN I HIGH-SENSITIVITY Routine 10/04/2024 8:49 PM FRONT DESK MONITOR CALCIUM,IONIZED, WHOLE BLOOD Routine 10/04/2024 8:49 PM FRONT DESK MONITOR EGFR Routine 10/04/2024 8:49 PM FRONT DESK MONITOR DIFFERENTIAL AUTO Routine 10/04/2024 8:4 9 PM FRONT DESK MONITOR CBC WITH AUTO DIFFERENTIAL Routine 10/04/2024 8:49 PM FRONT DESK MONITOR LACTATE, WHOLE BLOOD Routine 10/04/2024 8:49 PM FRONT DESK MONITOR BASIC METABOLIC PANEL Routine 10/04/2024 8:49 PM FRONT DESK MONITOR URINALYSIS AND REFLEX TO MICROSCOPIC AND CULTURE STAT 10/04/2024 1:30 PM FRONT DESK MONITOR URINALYSIS, MICROSCOPIC ONLY STAT 10/04/2024 1:30 PM FRONT DESK MONITOR LACTATE, WHOLE BLOOD STAT 10/04/2024 12:12 PM FRONT DESK MONITOR TROPONIN I HIGH-SENSITIVITY 2-HOUR Timed 10/04/2024 12:06 PM FRONT DESK MONITOR INFLUENZA A/B, RSV, AND COVID-19 PCR Routine 10/04/2024 9:06 AM FRONT DESK MONITOR TROPONIN I HIGH-SENSITIVITY SERIES (BASELINE, 2HR, 4HR, 6HR) Routine 10/04/2024 9:06 AM FRONT DESK MONITOR LACTATE STAT 10/04/2024 9:06 AM FRONT DESK MONITOR CRITICAL RESULT CALLBACK CHEMISTRY STAT 10/04/2024 9:06 AM FRONT DESK MONITOR EGFR Routine 10/03/2024 10:36 PM FRONT DESK MONITOR BASIC METABOLIC PANEL Routine 10/03/2024 10:36 PM FRONT DESK MONITOR DIFFERENTIAL AUTO Routine 10/03/2024 8:3 0 PM FRONT DESK MONITOR CBC WITH AUTO DIFFERENTIAL Routine 10/03/2024 8:30 PM FRONT DESK MONITOR EGFR STAT 10/03/2024 8:25 PM FRONT DESK MONITOR BASIC METABOLIC PANEL STAT 10/03/2024 8:25 PM FRONT DESK MONITOR ECG 12-LEAD Routine 10/03/2024 2:19 PM FRONT DESK MONITOR POCT GLUCOSE DEVICE Routine 10/03/2024 2 :07 PM FRONT DESK MONITOR EGFR Routine 10/03/2024 4:58 AM FRONT DESK MONITOR DIFFERENTIAL AUTO Routine 10/03/2024 4:5 8 AM FRONT DESK MONITOR CBC WITH AUTO DIFFERENTIAL Routine 10/03/2024 4:58 AM FRONT DESK MONITOR BASIC METABOLIC PANEL Routine 10/03/2024 4:58 AM FRONT DESK MONITOR XR CHEST 1 VIEW IP Routine 10/02/2024 9:08 PM FRONT DESK MONITOR EGFR STAT 10/02/2024 4:01 PM FRONT DESK MONITOR DIFFERENTIAL AUTO STAT 10/02/2024 4:0 1 PM FRONT DESK MONITOR CBC WITH AUTO DIFFERENTIAL STAT 10/02/2024 4:01 PM FRONT DESK MONITOR APTT STAT 10/02/2024 4:01 PM FRONT DESK MONITOR PROTIME-INR STAT 10/02/2024 4:01 PM FRONT DESK MONITOR PHOSPHORUS STAT 10/02/2024 4:01 PM FRONT DESK MONITOR MAGNESIUM STAT 10/02/2024 4:01 PM FRONT DESK MONITOR COMPREHENSIVE METABOLIC PANEL STAT 10/02/2024 4:01 PM FRONT DESK MONITOR POC BLOOD GAS AND CHEMISTRIES, ARTERIAL Routine 10/02/2024 2:30 PM FRONT DESK MONITOR FL FLUOROSCOPY < 1 HOUR IP Routine 10/02/2024 2:00 PM FRONT DESK MONITOR POC BLOOD GAS AND CHEMISTRIES, ARTERIAL Routine 10/02/2024 10:43 AM FRONT DESK MONITOR SPINAL CORD MONITORING 7:29 AM 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 David HEBERT LAMINECTOMY THORACIC DECOMPRESSION 10/02/2024 7:29 AM 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 David HEBERT FUSION SPINAL - POSTERIOR LUMBAR/THORACIC WITH INSTRUMENTATION 10/02/2024 7:29 AM 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 David HEBERT TYPE AND SCREEN STAT 10/02/2024 6:18 AM FRONT DESK MONITOR documented in this encounter Results * (ABNORMAL) Hepatic function panel (10/13/2024 8:12 PM FRONT DESK MONITOR) Bilirubin, total 0.2 0.1 - 1.2 mg/dL Bilirubin, direct <0.2 0.1 - 0.3 mg/dL CERNER [facility] Protein, pl 5.8(L) 6.5 - 8.5 g/dL [facility] Albumin 3.4(L) 3.5 - 5.0 g/dL [facility] Alk phos 59 40 - 130 Units/L [facility] ALT 28 7 - 55 Units/L [facility] AST 26 10 - 50 Units/L [facility] Comment:Hemolyzed; result ma y be falsely elevated Blood 10/13/2024 8:1 2 PM FRONT DESK MONITOR 10/13/2024 8:23 PM FRONT DESK MONITOR us James Robles MD LAB BLOOD ORDERABLES Final Resu lt Performing Organization Address City/[facility]/ZIP Co de Phone Number REYNALDO MAHARAJ [facility] [place] [address] * eGFR (10/13/2024 8:12 PM FRONT DESK MONITOR) eGFR 60 >=60 mL/min/1. 73 m2 Comment: [...] last reviewed 2021. Blood 10/13/2024 8:12 PM FRONT DESK MONITOR 10/13/2024 8:37 PM FRONT DESK MONITOR James Robles MD LAB BLOOD ORDERABLES Final Resu lt Performing Organization Address [facility]/ZIP Co de Phone Number REYNALDO [facility] [place] [address] * Protime-INR (10/13/2024 8:12 PM FRONT DESK MONITOR) Pathologist [facility] PT 11.5 9.7 - 13.0 sec INR 1.06 0.90 - 1.20 [facility] Comment: Interpretive data Oral anticoagulant therapeutic ranges: Venous thromboembolism prophylaxis or treatment: 2.0-3.0 CARDIOLOGY Standard range: 2.0-3.0 High-intensity range: 2.5-3.5 Refer to indication-specific guidelines for appropriate target ranges for prosthetic heart valve replacement. Current interpretive data was last revised on 2019. Blood 10/13/2024 8:12 PM FRONT DESK MONITOR 10/13/2024 8:32 PM FRONT DESK MONITOR Narrative [facility] - 10/13/2024 8:38 PM FRONT DESK MONITOR Baseline prior to apixaban initiation. Meghan Carranza MACHINE JOINER CEMENTER LAB BLOOD ORDERABLES [facility] al Result [facility] [place] [address] * (ABNORMAL) CBC without differential (10/13/2024 8:12 PM FRONT DESK MONITOR) Pathologist [facility] WBC 17.1(H) 3.8 - 9.9 K/cumm Hgb 12.1(L) 13.0 - 17.5 g/dL [facility] Hct 37.0(L) 38.9 - 50.3 % [facility] Plt 214 150 - 400 K/cumm [facility] MPV 10.1 9.1 - 12.3 fL [facility] RBC 3.76(L) 4.30 - 5.80 M/cumm [facility] MCV 98.4(H) 81.3 - 96.4 fL [facility] MCH 32.2 27.1 - 33.3 pg [facility] MCHC 32.7 32.3 - 35.7 g/dL [facility] RDW CV 14.6 11.1 - 14.9 % [facility] RDW SD 52.2(H) 35.7 - 48.1 fL [facility] NRBC abs 0.00 0.00 - 0.01 K/cumm [facility] Blood 10/13/2024 8:12 PM FRONT DESK MONITOR 10/13/2024 8:26 PM FRONT DESK MONITOR us Maria Isabel Unger NP LAB BLOOD ORDERABLES Final Result Performing Organization Address [facility] Phone Number [facility] [place] [address] * (ABNORMAL) Basic metabolic panel (10/13/2024 8:12 PM FRONT DESK MONITOR) Sodium 140 135 - 145 mmol/L Potassium, pl 4.7 3.3 - 4.9 mmol/L [facility] Comment:Hemolyzed; Potassium value may be falsely elevated by as much as 0.3-0.5 mmol/L. Suggest redraw and reanalysis. Chloride 107 97 - 110 mmol/L [facility] CO2 23 22 - 32 mmol/L [facility] Anion gap 10 2 - 15 mmol/L [facility] BUN 26(H) 6 - 25 mg/dL [facility] Creatinine 1.25 0.80 - 1.30 mg/dL [facility] Glucose 96 70 - 199 mg/dL [facility] Comment: Interpretive Data Fasting glucose >/= [...] 2022. Calcium 8.9 8.5 - 10.3 mg/dL [facility] Blood 10/13/2024 8:12 PM FRONT DESK MONITOR 10/13/2024 8:23 PM FRONT DESK MONITOR us James Robles MD LAB BLOOD ORDERABLES Final Resu lt [facility] [place] [address] * US Vein Duplex Lower Extremity Bilateral Complete (10/13/2024 9:43 AM FRONT DESK MONITOR) Anatomical Region Laterality Modality Vascular Bilateral Ultrasound 10/13/2024 9:05 AM FRONT DESK MONITOR Narrative 10/13/2024 1:52 PM FRONT DESK MONITOR [facility] - Department of Vascular Surgery, Vascular Laboratory [address] [place] [id number] Lower Extremity Venous Ultrasound Report Patient Name: LILI DELGADO F : 1950 (74y ) Study Date: 10/13/2024 9:05:32 AM Gender: M Tech: Location: [id number] Ref Provider: MEGHAN CARRANZA Quality: Adequate Order [...] thrombus size per hematology - FINDINGS: Performing Link Trainer Mechanic: Jessica Aguilar RVT. Right: Duplex scan reveals [...] Tyshawn Mullins MD FACS 10/13/2024 1:52:11 PM FRONT DESK MONITOR Procedure Note Tyshawn Mullins MD - 10/13/2024 [facility] - Department of Vascular Surgery,Vascular Laboratory [address] [place] [address] Lower Extremity Venous Ultrasound Report Patient Name: LILI DELGADO F : 1950 (74y ) Study Date: 10/13/2024 9:05:32 AM Gender: M Tech: Location: [id number] Ref Provider: MEGHAN CARRANZA Quality: Adequate Order [...] thrombus size per hematology - FINDINGS: Performing Link Trainer Mechanic: Jessica Aguilar RVT. Right: Duplex scan reveals [...] above. Electronically Signed By: Tyshawn Mullins MD [facility] 10/13/2024 1:52:11 PM FRONT DESK MONITOR us Meghan Carranza NP IMG US PROCEDURES Final Result * (ABNORMAL) aPTT (10/13/2024 6:24 AM FRONT DESK MONITOR) aPTT 55(H) 28 - 38 sec Comment: Interpretive Data Heparin therapeutic range: 66.0 - 100.0 seconds. Range based on correlation with therapeutic heparin activity range of 0.3 - 0.7 Units/mL. Current interpretive data was last revised on 2023. Blood 10/13/2024 6:24 AM FRONT DESK MONITOR 10/13/2024 6:52 AM FRONT DESK MONITOR Marco JACOBS [facility] - 10/13/2024 7:17 AM FRONT DESK MONITOR STAT PTT timing: - Draw 6 hours [...] ORDERABLES Final Resu lt Performing Organization Address City/[facility]/ZIP Co de Phone Number REYNALDO CARSON [facility] [place] [address] * (ABNORMAL) eGFR (10/12/2024 9:40 PM FRONT DESK MONITOR) eGFR 49(L) >=60 mL/min/1. 73 m2 Comment: [...] last reviewed 2021. Blood 10/12/2024 9:40 PM FRONT DESK MONITOR 10/12/2024 11:24 PM FRONT DESK MONITOR James Robles MD LAB BLOOD ORDERABLES Final Resu lt Performing Organization Address City/[facility]/ZIP Co de Phone Number CERNER [facility] [place] [address] * (ABNORMAL) aPTT (10/12/2024 9:40 PM FRONT DESK MONITOR) [facility] aPTT 57(H) 28 - 38 sec Comment: Interpretive Data Heparin therapeutic range: 66.0 - 100.0 seconds. Range based on correlation with therapeutic heparin activity range of 0.3 - 0.7 Units/mL. Current interpretive data was last revised on 2023. Blood 10/12/2024 9:40 PM FRONT DESK MONITOR 10/12/2024 11:26 PM FRONT DESK MONITOR Meghan Carranza MACHINE JOINER CEMENTER LAB BLOOD ORDERABLES Fin al Result [facility] [place] [address] * (ABNORMAL) CBC without differential (10/12/2024 9:40 PM FRONT DESK MONITOR) [facility] WBC 13.9(H) 3.8 - 9.9 K/cumm Hgb 11.4(L) 13.0 - 17.5 g/dL [facility] Hct 35.0(L) 38.9 - 50.3 % [facility] Plt 232 150 - 400 K/cumm [facility] MPV 10.5 9.1 - 12.3 fL [facility] RBC 3.59(L) 4.30 - 5.80 M/cumm [facility] MCV 97.5(H) 81.3 - 96.4 fL [facility] MCH 31.8 27.1 - 33.3 pg [facility] MCHC 32.6 32.3 - 35.7 g/dL [facility] RDW CV 14.6 11.1 - 14.9 % [facility] RDW SD 51.2(H) 35.7 - 48.1 fL [facility] NRBC abs 0.00 0.00 - 0.01 K/cumm [facility] Blood 10/12/2024 9:40 PM FRONT DESK MONITOR 10/12/2024 11:24 PM FRONT DESK MONITOR us Maria Isabel Unger NP LAB BLOOD ORDERABLES Final Result [facility] [place] [address] * (ABNORMAL) Basic metabolic panel (10/12/2024 9:40 PM FRONT DESK MONITOR) [facility] Sodium 144 135 - 145 mmol/L Potassium, pl 4.4 3.3 - 4.9 mmol/L [facility] Chloride 109 97 - 110 mmol/L [facility] CO2 27 22 - 32 mmol/L [facility] Anion gap 8 2 - 15 mmol/L [facility] BUN 28(H) 6 - 25 mg/dL [facility] Creatinine 1.48(H) 0.80 - 1.30 mg/dL [facility] Glucose 110 70 - 199 mg/dL [facility] Comment: Interpretive Data Fasting glucose >/= [...] 2022. Calcium 8.4(L) 8.5 - 10.3 mg/dL [facility] Blood 10/12/2024 9:40 PM FRONT DESK MONITOR 10/12/2024 11:24 PM FRONT DESK MONITOR us James Robles MD LAB BLOOD ORDERABLES Final Resu lt Performing Organization Address City/[facility]/ZIP Co de Phone Number [facility] [place] [address] * (ABNORMAL) aPTT (10/12/2024 6:21 AM FRONT DESK MONITOR) aPTT 51(H) 28 - 38 sec Comment: Interpretive Data Heparin therapeutic range: 66.0 - 100.0 seconds. Range based on correlation with therapeutic heparin activity range of 0.3 - 0.7 Units/mL. Current interpretive data was last revised on 2023. Blood 10/12/2024 6:21 AM FRONT DESK MONITOR 10/12/2024 6:49 AM FRONT DESK MONITOR Narrative REYNALDO [facility] - 10/12/2024 6:56 AM FRONT DESK MONITOR STAT PTT timing: - Draw 6 hours [...] ORDERABLES Final Resu lt REYNALDO MAHARAJ [facility] [place] [address] * (ABNORMAL) aPTT (10/12/2024 12:54 AM FRONT DESK MONITOR) aPTT 51(H) 28 - 38 sec Comment: Interpretive Data Heparin therapeutic range: 66.0 - 100.0 seconds. Range based on correlation with therapeutic heparin activity range of 0.3 - 0.7 Units/mL. Current interpretive data was last revised on 2023. Blood 10/12/2024 12:5 4 AM FRONT DESK MONITOR 10/12/2024 1:09 AM FRONT DESK MONITOR Narrative REYNALDO [facility] - 10/12/2024 1:17 AM FRONT DESK MONITOR STAT PTT timing: - Draw 6 hours [...] lt REYNALDO [facility] [place] [address] * (ABNORMAL) eGFR (10/11/2024 9:52 PM FRONT DESK MONITOR) [facility] eGFR 42(L) >=60 mL/min/1. 73 m2 Comment: [...] last reviewed 2021. Blood 10/11/2024 9:52 PM FRONT DESK MONITOR 10/11/2024 11:34 PM FRONT DESK MONITOR us James Robles MD LAB BLOOD ORDERABLES Final Resu lt [facility] [place] [address] * (ABNORMAL) CBC without differential (10/11/2024 9:52 PM FRONT DESK MONITOR) WBC 15.3(H) 3.8 - 9.9 K/cumm Hgb 10.9(L) 13.0 - 17.5 g/dL [facility] Hct 33.4(L) 38.9 - 50.3 % [facility] Plt 234 150 - 400 K/cumm [facility] MPV 10.4 9.1 - 12.3 fL [facility] RBC 3.47(L) 4.30 - 5.80 M/cumm [facility] MCV 96.3 81.3 - 96.4 fL [facility] MCH 31.4 27.1 - 33.3 pg [facility] MCHC 32.6 32.3 - 35.7 g/dL [facility] RDW CV 14.3 11.1 - 14.9 % [facility] RDW SD 49.6(H) 35.7 - 48.1 fL [facility] NRBC abs 0.00 0.00 - 0.01 K/cumm [facility] Blood 10/11/2024 9:52 PM FRONT DESK MONITOR 10/11/2024 11:34 PM FRONT DESK MONITOR us Maria Isabel Unger NP LAB BLOOD ORDERABLES Final Result [facility] [place] [address] * (ABNORMAL) Basic metabolic panel (10/11/2024 9:52 PM FRONT DESK MONITOR) Sodium 141 135 - 145 mmol/L Potassium, pl 4.6 3.3 - 4.9 mmol/L [facility] Chloride 107 97 - 110 mmol/L [facility] CO2 27 22 - 32 mmol/L [facility] Anion gap 7 2 - 15 mmol/L [facility] BUN 35(H) 6 - 25 mg/dL [facility] Creatinine 1.68(H) 0.80 - 1.30 mg/dL [facility] Glucose 115 70 - 199 mg/dL [facility] Comment: Interpretive Data Fasting glucose >/= [...] 2022. Calcium 8.1(L) 8.5 - 10.3 mg/dL [facility] Blood 10/11/2024 9:52 PM FRONT DESK MONITOR 10/11/2024 11:34 PM FRONT DESK MONITOR us James Robles MD LAB BLOOD ORDERABLES Final Resu lt [facility] [place] [address] * aPTT (10/11/2024 5:30 PM FRONT DESK MONITOR) aPTT 33 28 - 38 sec Comment: Interpretive Data Heparin therapeutic range: 66.0 - 100.0 seconds. Range based on correlation with therapeutic heparin activity range of 0.3 - 0.7 Units/mL. Current interpretive data was last revised on 2023. Blood 10/11/2024 5:30 PM FRONT DESK MONITOR 10/11/2024 5:59 PM FRONT DESK MONITOR Narrative REYNALDO MAHARAJ - 10/11/2024 6:07 PM FRONT DESK MONITOR STAT PTT timing: - Draw 6 hours [...] MD LAB BLOOD ORDERABLES Final Resu lt [facility] [place] [address] * (ABNORMAL) eGFR (10/10/2024 8:04 PM FRONT DESK MONITOR) eGFR 45(L) >=60 mL/min/1. 73 m2 Comment: [...] last reviewed 2021. Blood 10/10/2024 8:04 PM FRONT DESK MONITOR 10/10/2024 8:34 PM FRONT DESK MONITOR Result [facility] James Robles MD LAB BLOOD ORDERABLES Final Resu lt Performing Organization Address [facility] Co de Phone Number [facility] [place] [address] * (ABNORMAL) aPTT (10/10/2024 8:04 PM FRONT DESK MONITOR) aPTT 22(L) 28 - 38 sec Comment: Interpretive Data Heparin therapeutic range: 66.0 - 100.0 seconds. Range based on correlation with therapeutic heparin activity range of 0.3 - 0.7 Units/mL. Current interpretive data was last revised on 2023. Blood 10/10/2024 8:04 PM FRONT DESK MONITOR 10/10/2024 8:24 PM FRONT DESK MONITOR Result [facility] James Robles MD LAB BLOOD ORDERABLES Final Resu lt Performing Organization Address [facility] de Phone Number [facility] [place] [address] * Protime-INR (10/10/2024 8:04 PM FRONT DESK MONITOR) PT 12.0 9.7 - 13.0 sec INR 1.11 0.90 - 1.20 [facility] Comment: Interpretive data Oral anticoagulant therapeutic ranges: Venous thromboembolism prophylaxis or treatment: 2.0-3.0 CARDIOLOGY Standard range: 2.0-3.0 High-intensity range: 2.5-3.5 Refer to indication-specific guidelines for appropriate target ranges for prosthetic heart valve replacement. Current interpretive data was last revised on 2019. Blood 10/10/2024 8:04 PM FRONT DESK MONITOR 10/10/2024 8:24 PM FRONT DESK MONITOR James Robles MD LAB BLOOD ORDERABLES Final Resu lt Performing Organization Address [facility] Co de Phone Number [facility] [place] [address] * (ABNORMAL) aPTT (10/10/2024 8:04 PM FRONT DESK MONITOR) Pathologist [facility] aPTT 22(L) 28 - 38 sec Comment: Interpretive Data Heparin therapeutic range: 66.0 - 100.0 seconds. Range based on correlation with therapeutic heparin activity range of 0.3 - 0.7 Units/mL. Current interpretive data was last revised on 2023. Blood 10/10/2024 8:04 PM FRONT DESK MONITOR 10/10/2024 8:24 PM FRONT DESK MONITOR Narrative [facility] - 10/10/2024 8:33 PM FRONT DESK MONITOR STAT PTT timing: - Draw 6 hours [...] ORDERABLES Final Resu lt Performing Organization Address City/[facility]/ZIP Co de Phone Number [facility] [place] [address] * (ABNORMAL) CBC without differential (10/10/2024 8:04 PM FRONT DESK MONITOR) Pathologist [facility] WBC 17.1(H) 3.8 - 9.9 K/cumm Hgb 11.6(L) 13.0 - 17.5 g/dL [facility] Hct 34.3(L) 38.9 - 50.3 % [facility] Plt 260 150 - 400 K/cumm [facility] MPV 10.3 9.1 - 12.3 fL [facility] RBC 3.62(L) 4.30 - 5.80 M/cumm [facility] MCV 94.8 81.3 - 96.4 fL [facility] MCH 32.0 27.1 - 33.3 pg [facility] MCHC 33.8 32.3 - 35.7 g/dL [facility] RDW CV 14.2 11.1 - 14.9 % [facility] RDW SD 48.3(H) 35.7 - 48.1 fL [facility] NRBC abs 0.00 0.00 - 0.01 K/cumm [facility] Blood 10/10/2024 8:04 PM FRONT DESK MONITOR 10/10/2024 8:34 PM FRONT DESK MONITOR Maria Isabel Unger NP LAB BLOOD ORDERABLES Final Result [facility] [place] [address] * (ABNORMAL) Basic metabolic panel (10/10/2024 8:04 PM FRONT DESK MONITOR) Sodium 140 135 - 145 mmol/L Potassium, pl 4.6 3.3 - 4.9 mmol/L [facility] Chloride 105 97 - 110 mmol/L [facility] CO2 24 22 - 32 mmol/L [facility] Anion gap 11 2 - 15 mmol/L [facility] BUN 32(H) 6 - 25 mg/dL [facility] Creatinine 1.59(H) 0.80 - 1.30 mg/dL [facility] Glucose 108 70 - 199 mg/dL [facility] Comment: Interpretive Data Fasting glucose >/= [...] 2022. Calcium 8.4(L) 8.5 - 10.3 mg/dL [facility] Blood 10/10/2024 8:04 PM FRONT DESK MONITOR 10/10/2024 8:34 PM FRONT DESK MONITOR us James Robles MD LAB BLOOD ORDERABLES Final Resu lt [facility] [place] [address] * (ABNORMAL) CBC without differential (10/10/2024 11:51 AM FRONT DESK MONITOR) WBC 21.0(H) 3.8 - 9.9 K/cumm Hgb 12.0(L) 13.0 - 17.5 g/dL [facility] Hct 36.7(L) 38.9 - 50.3 % [facility] Plt 272 150 - 400 K/cumm [facility] MPV 10.4 9.1 - 12.3 fL [facility] RBC 3.84(L) 4.30 - 5.80 M/cumm [facility] MCV 95.6 81.3 - 96.4 fL [facility] MCH 31.3 27.1 - 33.3 pg [facility] MCHC 32.7 32.3 - 35.7 g/dL [facility] RDW CV 14.0 11.1 - 14.9 % [facility] RDW SD 47.8 35.7 - 48.1 fL [facility] NRBC abs 0.00 0.00 - 0.01 K/cumm [facility] Blood 10/10/2024 11:5 1 AM FRONT DESK MONITOR 10/10/2024 12:26 PM FRONT DESK MONITOR Narrative [facility] - 10/10/2024 12:37 PM FRONT DESK MONITOR Baseline prior to heparin initiation Result [facility] James Robles MD LAB BLOOD ORDERABLES Final Resu lt Performing Organization Address [facility] Co de Phone Number [facility] [place] [address] * (ABNORMAL) aPTT (10/10/2024 11:36 AM FRONT DESK MONITOR) aPTT 23(L) 28 - 38 sec Comment: Interpretive Data Heparin therapeutic range: 66.0 - 100.0 seconds. Range based on correlation with therapeutic heparin activity range of 0.3 - 0.7 Units/mL. Current interpretive data was last revised on 2023. Blood 10/10/2024 11:3 6 AM FRONT DESK MONITOR 10/10/2024 11:47 AM FRONT DESK MONITOR Narrative [facility] - 10/10/2024 12:16 PM FRONT DESK MONITOR Baseline prior to heparin initiation Result [facility] James Robles MD LAB BLOOD ORDERABLES Final Resu lt Performing Organization Address [facility] [place] [address] * Protime-INR (10/10/2024 11:36 AM FRONT DESK MONITOR) PT 11.3 9.7 - 13.0 sec INR 1.05 0.90 - 1.20 [facility] Comment: Interpretive data Oral anticoagulant therapeutic ranges: Venous thromboembolism prophylaxis or treatment: 2.0-3.0 CARDIOLOGY Standard range: 2.0-3.0 High-intensity range: 2.5-3.5 Refer to indication-specific guidelines for appropriate target ranges for prosthetic heart valve replacement. Current interpretive data was last revised on 2019. Blood 10/10/2024 11:3 6 AM FRONT DESK MONITOR 10/10/2024 11:47 AM FRONT DESK MONITOR Narrative [facility] - 10/10/2024 12:16 PM FRONT DESK MONITOR Baseline prior to heparin initiation James Robles MD LAB BLOOD ORDERABLES Final Resu lt Performing Organization Address [facility] Co de Phone Number [facility] [place] [address] * (ABNORMAL) eGFR (10/10/2024 3:19 AM FRONT DESK MONITOR) eGFR 53(L) >=60 mL/min/1. 73 m2 Comment: [...] last reviewed 2021. Blood 10/10/2024 3:19 AM FRONT DESK MONITOR 10/10/2024 5:57 AM FRONT DESK MONITOR James Robles MD LAB BLOOD ORDERABLES Final Resu lt Performing Organization Address City/[facility]/ZIP Co de Phone Number [facility] [place] [address] * (ABNORMAL) CBC without differential (10/10/2024 3:19 AM FRONT DESK MONITOR) [facility] WBC 18.6(H) 3.8 - 9.9 K/cumm Hgb 11.7(L) 13.0 - 17.5 g/dL [facility] Hct 35.3(L) 38.9 - 50.3 % [facility] Plt 234 150 - 400 K/cumm [facility] MPV 10.4 9.1 - 12.3 fL [facility] RBC 3.69(L) 4.30 - 5.80 M/cumm [facility] MCV 95.7 81.3 - 96.4 fL [facility] MCH 31.7 27.1 - 33.3 pg [facility] MCHC 33.1 32.3 - 35.7 g/dL [facility] RDW CV 14.1 11.1 - 14.9 % [facility] RDW SD 48.1 35.7 - 48.1 fL [facility] NRBC abs 0.00 0.00 - 0.01 K/cumm [facility] Blood 10/10/2024 3:19 AM FRONT DESK MONITOR 10/10/2024 6:01 AM FRONT DESK MONITOR Maria Isabel Unger NP LAB BLOOD ORDERABLES Final Result [facility] [place] [address] * (ABNORMAL) Basic metabolic panel (10/10/2024 3:19 AM FRONT DESK MONITOR) [facility] Sodium 141 135 - 145 mmol/L Potassium, pl 4.2 3.3 - 4.9 mmol/L [facility] Chloride 106 97 - 110 mmol/L [facility] CO2 27 22 - 32 mmol/L [facility] Anion gap 8 2 - 15 mmol/L [facility] BUN 34(H) 6 - 25 mg/dL [facility] Creatinine 1.38(H) 0.80 - 1.30 mg/dL [facility] Glucose 95 70 - 199 mg/dL [facility] Comment: Interpretive Data Fasting glucose >/= [...] 2022. Calcium 8.5 8.5 - 10.3 mg/dL [facility] Blood 10/10/2024 3:19 AM FRONT DESK MONITOR 10/10/2024 5:57 AM FRONT DESK MONITOR James Robles MD LAB BLOOD ORDERABLES Final Resu lt Performing Organization Address [facility] Co de Phone Number [facility] [place] [address] * POCT glucose (10/09/2024 8:41 PM FRONT DESK MONITOR) Glucose, POC 141 70 - 199 mg/dL Blood 10/09/2024 8:41 PM FRONT DESK MONITOR 10/09/2024 8:41 PM FRONT DESK MONITOR James Robles MD LAB POCT ORDERABLES - DEVICE Fi nal Result Performing Organization Address [facility] Co de Phone Number [facility] [place] [address] * US Vein Duplex Lower Extremity Bilateral Complete (10/09/2024 10:08 AM FRONT DESK MONITOR) Anatomical Region Laterality Modality Vascular Bilateral Ultrasound 10/09/2024 9:49 AM FRONT DESK MONITOR Narrative 10/09/2024 11:51 AM FRONT DESK MONITOR [facility] - Department of Vascular Surgery, Vascular Laboratory [address] [place] [id number] Lower Extremity Venous Ultrasound Report Patient Name: LILI DELGADO F : 1950 (74y ) Study Date: 10/09/2024 9:49:45 AM Gender: M Tech: AL Location: [id number] Ref Provider: OSIRIS GUILLEN ?Quality: Adequate Order [...] Pain in Leg, Right - FINDINGS: Performing Link Trainer Mechanic: Niurka Krishna RVT. Right: Duplex scan reveals [...] on the above date to Osiris Guillen MACHINE JOINER CEMENTER at 10:06 am. CONCLUSIONS: 1. There is [...] By: Tyshawn Mullins MD FACS 2024-10-09 11:50:17 FRONT DESK MONITOR Procedure Note Tyshawn Mullins MD - 10/09/2024 [facility] - Department of Vascular Surgery,Vascular Laboratory [address] [place] [address] Lower Extremity Venous Ultrasound Report Patient Name: LILI DELGADO F : 1950 (74y ) Study Date: 10/09/2024 9:49:45 AM Gender: M Tech: AL Location: [id number] Ref Provider: OSIRIS GUILLEN Quality: Adequate Order [...] Pain in Leg, Right - FINDINGS: Performing Link Trainer Mechanic: Niurka Krishna RVT. Right: Duplex scan reveals [...] on the above date to Osiris Guillen MACHINE JOINER CEMENTER at 10:06 am. CONCLUSIONS: 1. There is [...] above. Electronically Signed By: Tyshawn Mullins MD [facility] 2024-10-09 11:50:17 FRONT DESK MONITOR us Osiris Guillen NP IMG US PROCEDURES Final Result * XR Chest 1 View (10/09/2024 7:55 AM FRONT DESK MONITOR) Anatomical Region Laterality Modality Body, Chest N/A Digital Radiogra phy 10/09/2024 1:25 PM FRONT DESK MONITOR Impressions 10/09/2024 4:11 PM FRONT DESK MONITOR 1. ??Interval increase in left lung base atelectasis. Dictated by: Gabriel Warner M.D. The radiology attending physician has personally reviewed this study, and had reviewed and/or edited this written report and agrees with it. Electronically signed by: Austin Olsen M.D. Narrative 10/09/2024 4:11 PM FRONT DESK MONITOR EXAMINATION: 1 view chest radiograph History: 74-year-old [...] Result * (ABNORMAL) eGFR (10/08/2024 10:15 PM FRONT DESK MONITOR) eGFR 55(L) >=60 mL/min/1. 73 m2 Comment: [...] reviewed 2021. Blood 10/08/2024 10:1 5 PM FRONT DESK MONITOR 10/08/2024 11:56 PM FRONT DESK MONITOR us Brianna Martínez MACHINE JOINER CEMENTER LAB BLOOD ORDERABLES Cammy l Result [facility] [place] [address] * Phosphorus (10/08/2024 10:15 PM FRONT DESK MONITOR) Phosphorus, pl 3.1 2.3 - 4.5 mg/dL Blood 10/08/2024 10:1 5 PM FRONT DESK MONITOR 10/08/2024 11:56 PM FRONT DESK MONITOR Brianna Martínez MACHINE JOINER CEMENTER LAB BLOOD ORDERABLES Cammy l Result [facility] [place] [address] * Magnesium (10/08/2024 10:15 PM FRONT DESK MONITOR) Pathologist [facility] Magnesium 2.3 1.4 - 2.5 mg/dL Blood 10/08/2024 10:1 5 PM FRONT DESK MONITOR 10/08/2024 11:56 PM FRONT DESK MONITOR Brianna Martínez MACHINE JOINER CEMENTER LAB BLOOD ORDERABLES Cammy l Result Performing Organization Address [facility] de Phone Number [facility] [place] [address] * (ABNORMAL) Comprehensive metabolic panel (10/08/2024 10:15 PM FRONT DESK MONITOR) [facility] Sodium 141 135 - 145 mmol/L Potassium, pl 4.6 3.3 - 4.9 mmol/L [facility] Chloride 107 97 - 110 mmol/L [facility] CO2 25 22 - 32 mmol/L [facility] Anion gap 9 2 - 15 mmol/L [facility] BUN 33(H) 6 - 25 mg/dL [facility] Creatinine 1.33(H) 0.80 - 1.30 mg/dL [facility] Glucose 108 70 - 199 mg/dL [facility] Comment: Interpretive Data Fasting glucose >/= [...] 2022. Calcium 8.6 8.5 - 10.3 mg/dL [facility] Bilirubin, total 0.3 0.1 - 1.2 mg/dL [facility] Protein, pl 4.8(L) 6.5 - 8.5 g/dL [facility] Albumin 2.9(L) 3.5 - 5.0 g/dL [facility] Alk phos 49 40 - 130 Units/L [facility] ALT 39 7 - 55 Units/L [facility] AST 19 10 - 50 Units/L [facility] Blood 10/08/2024 10:1 5 PM FRONT DESK MONITOR 10/08/2024 11:56 PM FRONT DESK MONITOR us Brianna Martínez NP LAB BLOOD ORDERABLES Cammy ramos Result [facility] [place] [address] * (ABNORMAL) CBC without differential (10/08/2024 10:15 PM FRONT DESK MONITOR) Pathologist [facility] WBC 19.8(H) 3.8 - 9.9 K/cumm Hgb 11.2(L) 13.0 - 17.5 g/dL [facility] Hct 32.9(L) 38.9 - 50.3 % [facility] Plt 264 150 - 400 K/cumm [facility] MPV 10.5 9.1 - 12.3 fL [facility] RBC 3.57(L) 4.30 - 5.80 M/cumm [facility] MCV 92.2 81.3 - 96.4 fL [facility] MCH 31.4 27.1 - 33.3 pg [facility] MCHC 34.0 32.3 - 35.7 g/dL [facility] RDW CV 13.7 11.1 - 14.9 % [facility] RDW SD 45.1 35.7 - 48.1 fL [facility] NRBC abs 0.02(H) 0.00 - 0.01 K/cumm [facility] Blood 10/08/2024 10:1 5 PM FRONT DESK MONITOR 10/08/2024 11:57 PM FRONT DESK MONITOR us Maria Isabel Unger MACHINE JOINER CEMENTER LAB BLOOD ORDERABLES Final Result Performing Organization Address [facility] de Phone Number [facility] [place] [address] * Troponin I high-sensitivity (10/08/2024 11:36 AM FRONT DESK MONITOR) Pathologist [facility] Trop I hs 30 <=35 ng/L Comment: Interpretive Data For further hscTnI resources including the diagnostic algorithm and an aid in interpretation, copy and paste this link: https://bjhlab.testcatalog.org/show/hsTrop-[email or web address] Current Interpretive Data last revised 2020. Blood 10/08/2024 11:3 6 AM FRONT DESK MONITOR 10/08/2024 11:44 AM FRONT DESK MONITOR us Brianna Martínez MACHINE JOINER CEMENTER LAB BLOOD ORDERABLES Cammy l Result Performing Organization Address [facility] Co de Phone Number [facility] [place] [address] * (ABNORMAL) Lactate (10/08/2024 8:38 AM FRONT DESK MONITOR) [facility] Lactate 2.9(H) 0.7 - 2.0 mmol/L Blood 10/08/2024 8:38 AM FRONT DESK MONITOR 10/08/2024 11:44 AM FRONT DESK MONITOR Brianna Martínez MACHINE JOINER CEMENTER LAB BLOOD ORDERABLES Cammy l Result Performing Organization Address [facility] de Phone Number [facility] [place] [address] * eGFR (10/07/2024 10:19 PM FRONT DESK MONITOR) [facility] eGFR 62 >=60 mL/min/1. 73 m2 Comment: [...] reviewed 2021. Blood 10/07/2024 10:1 9 PM FRONT DESK MONITOR 10/07/2024 11:24 PM FRONT DESK MONITOR us James Robles MD LAB BLOOD ORDERABLES Final Resu lt [facility] [place] [address] * (ABNORMAL) CBC without differential (10/07/2024 10:19 PM FRONT DESK MONITOR) WBC 17.2(H) 3.8 - 9.9 K/cumm Hgb 11.4(L) 13.0 - 17.5 g/dL [facility] Hct 32.7(L) 38.9 - 50.3 % [facility] Plt 264 150 - 400 K/cumm [facility] MPV 10.6 9.1 - 12.3 fL [facility] RBC 3.58(L) 4.30 - 5.80 M/cumm [facility] MCV 91.3 81.3 - 96.4 fL [facility] MCH 31.8 27.1 - 33.3 pg [facility] MCHC 34.9 32.3 - 35.7 g/dL [facility] RDW CV 13.2 11.1 - 14.9 % [facility] RDW SD 43.6 35.7 - 48.1 fL [facility] NRBC abs 0.00 0.00 - 0.01 K/cumm [facility] Blood 10/07/2024 10:1 9 PM FRONT DESK MONITOR 10/07/2024 11:24 PM FRONT DESK MONITOR Maria Isabel Unger NP LAB BLOOD ORDERABLES Final Result [facility] [place] [address] * (ABNORMAL) Basic metabolic panel (10/07/2024 10:19 PM FRONT DESK MONITOR) Sodium 142 135 - 145 mmol/L Potassium, pl 4.5 3.3 - 4.9 mmol/L [facility] Chloride 107 97 - 110 mmol/L [facility] CO2 26 22 - 32 mmol/L [facility] Anion gap 9 2 - 15 mmol/L [facility] BUN 33(H) 6 - 25 mg/dL [facility] Creatinine 1.21 0.80 - 1.30 mg/dL [facility] Glucose 140 70 - 199 mg/dL [facility] Comment: Interpretive Data Fasting glucose >/= [...] 2022. Calcium 8.5 8.5 - 10.3 mg/dL [facility] Blood 10/07/2024 10:1 9 PM FRONT DESK MONITOR 10/07/2024 11:24 PM FRONT DESK MONITOR James Robles MD LAB BLOOD ORDERABLES Final Resu lt Performing Organization Address [facility] Co de Phone Number [facility] [place] [address] * (ABNORMAL) Lactate, whole blood (10/07/2024 9:09 AM FRONT DESK MONITOR) Lactate, bld 3.4(H) 0.7 - 2.0 mmol/L Blood 10/07/2024 9:09 AM FRONT DESK MONITOR 10/07/2024 9:15 AM FRONT DESK MONITOR Brianna Martínez NP LAB BLOOD ORDERABLES Cammy l Result Performing Organization Address [facility] Co de Phone Number [facility] [place] [address] * (ABNORMAL) Urinalysis, microscopic only (10/07/2024 5:37 AM FRONT DESK MONITOR) WBC, ur 0-5 0 - 5 /HPF RBC, ur 11-20(A) 0 - 2 /HPF [facility] Mucous, ur Present(A) [facility] Culture Reflex Comment Reflex conditions for urine culture (WBC >10) not met. [facility] Urine 10/07/2024 5:37 AM FRONT DESK MONITOR 10/07/2024 5:46 AM FRONT DESK MONITOR James Robles MD LAB URINE ORDERABLES Final Resu lt Performing Organization Address [facility] Co de Phone Number [facility] [place] [address] * (ABNORMAL) Urinalysis reflex to microscopic and culture Urine (10/07/2024 5:37 AM FRONT DESK MONITOR) Color, ur Straw Yellow Clarity, ur Clear Clear [facility] Specific gravity, ur 1.013 1.003 - 1.030 [facility] pH, urine 7.0 [facility] Comment: Interpretive Data ? Urine pH is affected by diet, medications, systemic acid-base disturbances, and renal tubular function. ??pH may affect urinary stone formation. ??For example, urine pH below 6.0 may help reduce the tendency for calcium phosphate stones and pH greater than 6.0 may reduce the tendency for uric acid stone formation. Source: [facility] Current Interpretive Data was last revised on 2017 Protein, ur ql Negative Negative [facility] Glucose, ur ql Negative Negative [facility] Ketones, ur Negative Negative [facility] Bilirubin, ur Negative Negative [facility] Blood, ur Trace(A) Negative [facility] Urobilinogen, ur <2.0 <2.0 mg/dL [facility] Nitrite, ur Negative Negative [facility] Leukocyte esterase, ur Negative Negative [facility] UA reflex comment Reflex to microscopic UA will be performed. [facility] Urine 10/07/2024 5:37 AM FRONT DESK MONITOR 10/07/2024 5:46 AM FRONT DESK MONITOR James Robles MD LAB MICROBIOLOGY - GENERAL RAYMOND JEFFERY Final Result [facility] [place] [address] * Blood culture Blood (10/07/2024 5:37 AM FRONT DESK MONITOR) Report Final Report: No growth Blood 10/07/2024 5:37 AM FRONT DESK MONITOR 10/07/2024 7:00 AM FRONT DESK MONITOR Narrative [facility] - 10/11/2024 7:00 AM FRONT DESK MONITOR Collection->Peripheral 1. ?Blood cultures are incubated for [...] organism identification may be performed using the Cava Grilligene Gram-Positive Blood Culture Assay. This assay detects microbial DNA in positive blood culture broth via hybridization of target DNA to capture oligonucleotides on a microarray. This assay has been cleared by the [place] Food and Drug Administration and its performance characteristics have been verified by the [facility] Microbiology Laboratory. 5. ?For questions about this culture, contact the Microbiology Laboratory at [phone]. Interpretive data was last revised on 2020. James Robles MD LAB MICROBIOLOGY - GENERAL RAYMOND JEFFERY Final Result [facility] [place] [address] * Blood culture Blood (10/07/2024 5:37 AM FRONT DESK MONITOR) Report Final Report: No growth Blood 10/07/2024 5:37 AM FRONT DESK MONITOR 10/07/2024 6:07 AM FRONT DESK MONITOR Narrative [facility] - 10/11/2024 7:00 AM FRONT DESK MONITOR Collection->Peripheral 1. ?Blood cultures are incubated for [...] organism identification may be performed using the Cava Grilligene Gram-Positive Blood Culture Assay. This assay detects microbial DNA in positive blood culture broth via hybridization of target DNA to capture oligonucleotides on a microarray. This assay has been cleared by the [place] Food and Drug Administration and its performance characteristics have been verified by the [facility] Microbiology Laboratory. 5. ?For questions about this culture, contact the Microbiology Laboratory at [phone]. Interpretive data was last revised on 2020. James Robles MD LAB MICROBIOLOGY - GENERAL RAYMOND JEFFERY Final Result [facility] [place] [address] * XR Chest 1 View (10/07/2024 5:18 AM FRONT DESK MONITOR) Anatomical Region Laterality Modality Body, Chest N/A Computed Radiogr aphy 10/07/2024 7:05 AM FRONT DESK MONITOR Impressions 10/07/2024 7:05 AM FRONT DESK MONITOR The current study is compared with the prior radiograph dated ??10/02/2024. ??Spine stimulator is present. ??The heart and mediastinal contours are normal. ??There is no mass or consolidation. There is no lymphadenopathy. ??There are no pleural effusions. ??There is no pneumothorax. There is no interval change. Electronically signed by: Lauren Cantrell M.D. Narrative 10/07/2024 7:05 AM FRONT DESK MONITOR EXAMINATION: 1 view chest radiograph Procedure Note [...] (ABNORMAL) Lactate, whole blood (10/06/2024 9:30 PM FRONT DESK MONITOR) Lactate, bld 2.7(H) 0.7 - 2.0 mmol/L Blood 10/06/2024 9:30 PM FRONT DESK MONITOR 10/06/2024 9:30 PM FRONT DESK MONITOR us Tamanna Porras MACHINE JOINER CEMENTER LAB BLOOD ORDERABLES Final Resul t [facility] [place] [address] * eGFR (10/06/2024 9:16 PM FRONT DESK MONITOR) eGFR 61 >=60 mL/min/1. 73 m2 Comment: [...] last reviewed 2021. Blood 10/06/2024 9:16 PM FRONT DESK MONITOR 10/06/2024 9:34 PM FRONT DESK MONITOR James Robles MD LAB BLOOD ORDERABLES Final Resu lt Performing Organization Address City/[facility]/ZIP Co de Phone Number [facility] [place] [address] * (ABNORMAL) CBC without differential (10/06/2024 9:16 PM FRONT DESK MONITOR) WBC 17.1(H) 3.8 - 9.9 K/cumm Hgb 10.8(L) 13.0 - 17.5 g/dL [facility] Hct 30.7(L) 38.9 - 50.3 % [facility] Plt 256 150 - 400 K/cumm [facility] MPV 10.3 9.1 - 12.3 fL [facility] RBC 3.40(L) 4.30 - 5.80 M/cumm [facility] MCV 90.3 81.3 - 96.4 fL [facility] MCH 31.8 27.1 - 33.3 pg [facility] MCHC 35.2 32.3 - 35.7 g/dL [facility] RDW CV 13.1 11.1 - 14.9 % [facility] RDW SD 43.2 35.7 - 48.1 fL [facility] NRBC abs 0.00 0.00 - 0.01 K/cumm [facility] Blood 10/06/2024 9:16 PM FRONT DESK MONITOR 10/06/2024 9:34 PM FRONT DESK MONITOR us Maria Isabel Unger NP LAB BLOOD ORDERABLES Final Result Performing Organization Address [facility]/ZIP Co de Phone Number [facility] [place] [address] * (ABNORMAL) Basic metabolic panel (10/06/2024 9:16 PM FRONT DESK MONITOR) Pathologist [facility] Sodium 140 135 - 145 mmol/L Potassium, pl 4.7 3.3 - 4.9 mmol/L [facility] Chloride 105 97 - 110 mmol/L [facility] CO2 25 22 - 32 mmol/L [facility] Anion gap 10 2 - 15 mmol/L [facility] BUN 32(H) 6 - 25 mg/dL [facility] Creatinine 1.22 0.80 - 1.30 mg/dL [facility] Glucose 152 70 - 199 mg/dL [facility] Comment: Interpretive Data Fasting glucose >/= [...] 2022. Calcium 8.7 8.5 - 10.3 mg/dL [facility] Blood 10/06/2024 9:16 PM FRONT DESK MONITOR 10/06/2024 9:34 PM FRONT DESK MONITOR us James Robles MD LAB BLOOD ORDERABLES Final Resu lt [facility] [place] [address] * eGFR (10/05/2024 10:43 PM FRONT DESK MONITOR) Pathologist [facility] eGFR 67 >=60 mL/min/1. 73 m2 [...] reviewed 2021. Blood 10/05/2024 10:4 3 PM FRONT DESK MONITOR 10/05/2024 11:10 PM FRONT DESK MONITOR us James Robles MD LAB BLOOD ORDERABLES Final Resu lt [facility] [place] [address] * (ABNORMAL) CBC without differential (10/05/2024 10:43 PM FRONT DESK MONITOR) WBC 16.5(H) 3.8 - 9.9 K/cumm Hgb 10.5(L) 13.0 - 17.5 g/dL [facility] Hct 31.4(L) 38.9 - 50.3 % [facility] Plt 238 150 - 400 K/cumm [facility] MPV 10.7 9.1 - 12.3 fL [facility] RBC 3.37(L) 4.30 - 5.80 M/cumm [facility] MCV 93.2 81.3 - 96.4 fL [facility] MCH 31.2 27.1 - 33.3 pg [facility] MCHC 33.4 32.3 - 35.7 g/dL [facility] RDW CV 13.3 11.1 - 14.9 % [facility] RDW SD 45.3 35.7 - 48.1 fL [facility] NRBC abs 0.00 0.00 - 0.01 K/cumm [facility] Blood 10/05/2024 10:4 3 PM FRONT DESK MONITOR 10/05/2024 11:11 PM FRONT DESK MONITOR us Maria Isabel Unger MACHINE JOINER CEMENTER LAB BLOOD ORDERABLES Final Result Performing Organization Address [facility] Co de Phone Number [facility] [place] [address] * (ABNORMAL) Lactate, whole blood (10/05/2024 10:43 PM FRONT DESK MONITOR) [facility] Lactate, bld 2.2(H) 0.7 - 2.0 mmol/L Blood 10/05/2024 10:4 3 PM FRONT DESK MONITOR 10/05/2024 11:07 PM FRONT DESK MONITOR Tamanna Porras MACHINE JOINER CEMENTER LAB BLOOD ORDERABLES Final Resul t Performing Organization Address [facility] de Phone Number [facility] [place] [address] * (ABNORMAL) Basic metabolic panel (10/05/2024 10:43 PM FRONT DESK MONITOR) [facility] Sodium 143 135 - 145 mmol/L Potassium, pl 4.4 3.3 - 4.9 mmol/L [facility] Chloride 108 97 - 110 mmol/L [facility] CO2 25 22 - 32 mmol/L [facility] Anion gap 10 2 - 15 mmol/L [facility] BUN 30(H) 6 - 25 mg/dL [facility] Creatinine 1.14 0.80 - 1.30 mg/dL [facility] Glucose 139 70 - 199 mg/dL [facility] Comment: Interpretive Data Fasting glucose >/= [...] REYNALDO MAHARAJ Blood 10/05/2024 10:4 3 PM FRONT DESK MONITOR 10/05/2024 11:10 PM FRONT DESK MONITOR us James Robles MD LAB BLOOD ORDERABLES Final Resu lt REYNALDO [facility] [place] [address] * (ABNORMAL) eGFR (10/04/2024 8:49 PM FRONT DESK MONITOR) eGFR 57(L) >=60 mL/min/1. 73 m2 Comment: [...] last reviewed 2021. Blood 10/04/2024 8:49 PM FRONT DESK MONITOR 10/04/2024 9:06 PM FRONT DESK MONITOR us James Robles MD LAB BLOOD ORDERABLES Final Resu lt [facility] [place] [address] * (ABNORMAL) Differential, auto (10/04/2024 8:49 PM FRONT DESK MONITOR) Neutrophil abs 20.1(H) 1.5 - 6.5 K/cumm Imm gran abs 0.3(H) 0.0 - 0.1 K/cumm [facility] Lymphocyte abs 1.2 0.8 - 3.3 [facility] Monocyte abs 1.4(H) 0.2 - 0.8 K/cumm [facility] Eosinophil abs 0.0 0.0 - 0.5 K/cumm [facility] Basophil abs 0.0 0.0 - 0.1 K/cumm [facility] Neutrophil pct 87.4 % [facility] Comment: Consistent with previous result Interpretive Data Percent cell count reference ranges are not reported, since discordance with absolute values may lead to misinterpretation of CBC data. Current Interpretive Data was last revised on 2018. Imm gran pct 1.3 % [facility] Comment: Interpretive Data Percent cell count reference ranges are not reported, since discordance with absolute values may lead to misinterpretation of CBC data. Current Interpretive Data was last revised on 2018. Lymphocyte pct 5.2 % [facility] Comment: Interpretive Data Percent cell count reference ranges are not reported, since discordance with absolute values may lead to misinterpretation of CBC data. Current Interpretive Data was last revised on 2018. Monocyte pct 6.0 % [facility] Comment: Interpretive Data Percent cell count reference ranges are not reported, since discordance with absolute values may lead to misinterpretation of CBC data. Current Interpretive Data was last revised on 2018. Eosinophil pct 0.0 % [facility] Comment: Interpretive Data Percent cell count reference ranges are not reported, since discordance with absolute values may lead to misinterpretation of CBC data. Current Interpretive Data was last revised on 2018. Basophil pct 0.1 % [facility] Comment: Interpretive Data Percent cell count reference ranges are not reported, since discordance with absolute values may lead to misinterpretation of CBC data. Current Interpretive Data was last revised on 2018. Blood 10/04/2024 8:49 PM FRONT DESK MONITOR 10/04/2024 9:06 PM FRONT DESK MONITOR us James Robles MD LAB BLOOD ORDERABLES Final Resu lt Performing Organization Address [facility] Co de Phone Number [facility] [place] [address] * (ABNORMAL) Lactate, whole blood (10/04/2024 8:49 PM FRONT DESK MONITOR) Lactate, bld 2.5(H) 0.7 - 2.0 mmol/L Blood 10/04/2024 8:49 PM FRONT DESK MONITOR 10/04/2024 9:00 PM FRONT DESK MONITOR us Tamanna Porras NP LAB BLOOD ORDERABLES Final Resul t Performing Organization Address [facility] de Phone Number [facility] [place] [address] * Calcium, ionized, whole blood (10/04/2024 8:49 PM FRONT DESK MONITOR) Ca, ionized, bld 5.10 4.50 - 5.10 mg/dL Blood 10/04/2024 8:49 PM FRONT DESK MONITOR 10/04/2024 9:00 PM FRONT DESK MONITOR Tamanna Porras NP LAB BLOOD ORDERABLES Final Resul t Performing Organization Address [facility]/ZIP Co de Phone Number [facility] [place] [address] * (ABNORMAL) Troponin I high-sensitivity (10/04/2024 8:49 PM FRONT DESK MONITOR) [facility] Trop I hs 128(H) <=35 ng/L Comment: Interpretive Data For further [facility] resources including the diagnostic algorithm and an aid in interpretation, copy and paste this link: https://bjhlab.testcatalog.org/show/hsTrop-1 Current Interpretive Data last revised 2020. Blood 10/04/2024 8:49 PM FRONT DESK MONITOR 10/04/2024 9:06 PM FRONT DESK MONITOR us Tamanna Porras NP LAB BLOOD ORDERABLES Final Resul t [facility] [place] [address] * (ABNORMAL) CBC with auto differential (10/04/2024 8:49 PM FRONT DESK MONITOR) [facility] WBC 23.0(H) 3.8 - 9.9 K/cumm Hgb 10.5(L) 13.0 - 17.5 g/dL [facility] Hct 31.0(L) 38.9 - 50.3 % [facility] Plt 207 150 - 400 K/cumm [facility] MPV 10.2 9.1 - 12.3 fL [facility] RBC 3.34(L) 4.30 - 5.80 M/cumm [facility] MCV 92.8 81.3 - 96.4 fL [facility] MCH 31.4 27.1 - 33.3 pg [facility] MCHC 33.9 32.3 - 35.7 g/dL [facility] RDW CV 13.6 11.1 - 14.9 % [facility] RDW SD 45.7 35.7 - 48.1 fL [facility] NRBC abs 0.00 0.00 - 0.01 K/cumm [facility] Blood 10/04/2024 8:49 PM FRONT DESK MONITOR 10/04/2024 9:06 PM FRONT DESK MONITOR James Robles MD LAB BLOOD ORDERABLES Final Resu lt [facility] [place] [address] * (ABNORMAL) Basic metabolic panel (10/04/2024 8:49 PM FRONT DESK MONITOR) Pathologist [facility] Sodium 144 135 - 145 mmol/L Potassium, pl 4.4 3.3 - 4.9 mmol/L [facility] Chloride 113(H) 97 - 110 mmol/L [facility] CO2 22 22 - 32 mmol/L [facility] Anion gap 9 2 - 15 mmol/L [facility] BUN 24 6 - 25 mg/dL [facility] Creatinine 1.30 0.80 - 1.30 mg/dL [facility] Glucose 168 70 - 199 mg/dL [facility] Comment: Interpretive Data Fasting glucose >/= [...] 2022. Calcium 8.4(L) 8.5 - 10.3 mg/dL [facility] Blood 10/04/2024 8:49 PM FRONT DESK MONITOR 10/04/2024 9:06 PM FRONT DESK MONITOR James Robles MD LAB BLOOD ORDERABLES Final Resu lt Performing Organization Address [facility]/ZIP Co de Phone Number [facility] [place] [address] * (ABNORMAL) Urinalysis, microscopic only (10/04/2024 1:30 PM FRONT DESK MONITOR) WBC, ur 0-5 0 - 5 /HPF RBC, ur >50(A) 0 - 2 /HPF [facility] Epithelial cells, squamous, ur 1-5 0 - 5 /HPF [facility] Mucous, ur Present(A) [facility] Culture Reflex Comment Reflex conditions for urine culture (WBC >10) not met. [facility] Urine 10/04/2024 1:3 0 PM FRONT DESK MONITOR 10/04/2024 4:15 PM FRONT DESK MONITOR us Tamanna Porras NP LAB URINE ORDERABLES Final Resul t [facility] [place] [address] * (ABNORMAL) Urinalysis reflex to microscopic and culture Urine (10/04/2024 1:30 PM FRONT DESK MONITOR) Color, ur Straw Yellow Clarity, ur Clear Clear [facility] Specific gravity, ur 1.028 1.003 - 1.030 [facility] pH, urine 6.0 [facility] Comment: Interpretive Data ? Urine pH is affected by diet, medications, systemic acid-base disturbances, and renal tubular function. ??pH may affect urinary stone formation. ??For example, urine pH below 6.0 may help reduce the tendency for calcium phosphate stones and pH greater than 6.0 may reduce the tendency for uric acid stone formation. Source: [facility] eTruck Current Interpretive Data was last revised on 2017 Protein, ur ql 1+(A) Negative [facility] Glucose, ur ql Negative Negative [facility] Ketones, ur Negative Negative [facility] Bilirubin, ur Negative Negative [facility] Blood, ur 3+(A) Negative [facility] Urobilinogen, ur <2.0 <2.0 mg/dL [facility] Nitrite, ur Negative Negative [facility] Leukocyte esterase, ur Negative Negative [facility] UA reflex comment Reflex to microscopic UA will be performed. [facility] Urine 10/04/2024 1:30 PM FRONT DESK MONITOR 10/04/2024 4:16 PM FRONT DESK MONITOR Tamanna Porras NP LAB MICROBIOLOGY - GENERAL ORDER TALYA Final Result Performing Organization Address City/[facility] Co de Phone Number [facility] [place] [address] * (ABNORMAL) Lactate, whole blood (10/04/2024 12:12 PM FRONT DESK MONITOR) Lactate, bld 3.7(H) 0.7 - 2.0 mmol/L Blood 10/04/2024 12:1 2 PM FRONT DESK MONITOR 10/04/2024 12:22 PM FRONT DESK MONITOR Tamanna Porras NP LAB BLOOD ORDERABLES Final Resul t Performing Organization Address [facility] de Phone Number [facility] [place] [address] * (ABNORMAL) Troponin I high-sensitivity 2-hour (10/04/2024 12:06 PM FRONT DESK MONITOR) Trop I hs 132(H) <=35 ng/L Comment: Interpretive Data For further hscTnI resources including the diagnostic algorithm and an aid in interpretation, copy and paste this link: https://bjhlab.testcatalog.org/show/hsTrop-1 Current Interpretive Data last revised 2020. Trop I hs pct delta -9 % [facility] Trop I hs interp Equivocal [facility] Blood 10/04/2024 12:0 6 PM FRONT DESK MONITOR 10/04/2024 12:30 PM FRONT DESK MONITOR Geraldine Leary MACHINE JOINER CEMENTER LAB BLOOD ORDERABLES Final Result Performing Organization Address [facility] Co de Phone Number [facility] [place] [address] * Critical Result Callback Chemistry (10/04/2024 9:06 AM FRONT DESK MONITOR) Date Notified [id number] Time Notified 1024 [facility] TestName Lactate REYNALDO MAHARAJ Called/Read Back Arin JACOBS [facility] Credentials RN REYNALDO [facility] Called By NEAL MAHARAJ Blood 10/04/2024 9:06 AM FRONT DESK MONITOR 10/04/2024 9:58 AM FRONT DESK MONITOR Geraldine Leary NP LAB BLOOD ORDERABLES Final Result Performing Organization Address [facility] Co de Phone Number [facility] [place] [address] * (ABNORMAL) Troponin I high-sensitivity series (baseline, 2hr, 4hr, 6hr) (10/04/2024 9:06 AM FRONT DESK MONITOR) Pathologist [facility] Trop I hs 145(H) <=35 ng/L Comment: Interpretive Data For further hscTnI resources including the diagnostic algorithm and an aid in interpretation, copy and paste this link: https://bjhlab.testcatalog.org/show/hsTrop-1 Current Interpretive Data last revised 2020. Blood 10/04/2024 9:06 AM FRONT DESK MONITOR 10/04/2024 9:58 AM FRONT DESK MONITOR Geraldine Leary NP LAB BLOOD ORDERABLES Final Result Performing Organization Address [facility] de Phone Number [facility] [place] [address] * (ABNORMAL) Lactate (10/04/2024 9:06 AM FRONT DESK MONITOR) Pathologist [facility] Lactate 4.1(C) 0.7 - 2.0 mmol/L Blood 10/04/2024 9:06 AM FRONT DESK MONITOR 10/04/2024 9:58 AM FRONT DESK MONITOR Geraldine Leary NP LAB BLOOD ORDERABLES Final Result Performing Organization Address [facility]/State/ZIP Co de Phone Number [facility] [place] [address] * Influenza A/B, RSV, and COVID-19 PCR Nasopharyngeal (10/04/2024 9:06 AM FRONT DESK MONITOR) [facility] COVID-19 RNA Negative Negative [facility] Influenza A RNA Negative Negative [facility] Influenza B RNA Negative Negative [facility] RSV RNA Negative Negative [facility] Comment: Interpretive data: Testing performed by [facility] ([phone]). This test is performed using the [employer] Xpert Xpress CoV-2/Flu/RSV plus assay. This is a multiplex, real-time reverse transcriptase PCR assay intended for the qualitative detection of nucleic acid from SARS-CoV-2, influenza A, influenza B, and respiratory syncytial virus. This assay has been cleared by the [place] Food and Drug administration. The performance characteristics have been verified by the [facility]. ??Results must be considered in the clinical context, and a negative result does not rule out infection. Interpretive Data last revised 2023 Nasopharyngeal 10/04/2024 9: 06 AM FRONT DESK MONITOR 10/04/2024 10:22 AM FRONT DESK MONITOR Narrative [facility] - 10/04/2024 11:17 AM FRONT DESK MONITOR Is the Patient experiencing symptoms consistent with COVID?->Unknown Geraldine Leary NP LAB MICROBIOLOGY - [facility] ORDERABLES Final Result Performing Organization Address City/State/[facility] Co de Phone Number [facility] [place] [address] [facility] * eGFR (10/03/2024 10:36 PM FRONT DESK MONITOR) [facility] eGFR 61 >=60 mL/min/1. 73 m2 Comment: [...] reviewed 2021. Blood 10/03/2024 10:3 6 PM FRONT DESK MONITOR 10/03/2024 10:52 PM FRONT DESK MONITOR us James Robles MD LAB BLOOD ORDERABLES Final Resu lt [facility] [place] [address] * (ABNORMAL) Basic metabolic panel (10/03/2024 10:36 PM FRONT DESK MONITOR) Pathologist [facility] Sodium 142 135 - 145 mmol/L Potassium, pl 4.4 3.3 - 4.9 mmol/L [facility] Chloride 113(H) 97 - 110 mmol/L [facility] CO2 22 22 - 32 mmol/L [facility] Anion gap 7 2 - 15 mmol/L [facility] BUN 17 6 - 25 mg/dL [facility] Creatinine 1.23 0.80 - 1.30 mg/dL [facility] Glucose 162 70 - 199 mg/dL [facility] Comment: Interpretive Data Fasting glucose >/= [...] 2022. Calcium 8.1(L) 8.5 - 10.3 mg/dL [facility] Blood 10/03/2024 10:3 6 PM FRONT DESK MONITOR 10/03/2024 10:52 PM FRONT DESK MONITOR us James Robles MD LAB BLOOD ORDERABLES Final Resu lt [facility] [place] [address] * (ABNORMAL) Differential, auto (10/03/2024 8:30 PM FRONT DESK MONITOR) Pathologist [facility] Neutrophil abs 22.7(H) 1.5 - 6.5 K/cumm Imm gran abs 0.3(H) 0.0 - 0.1 K/cumm [facility] Lymphocyte abs 1.2 0.8 - 3.3 K/cumm [facility] Monocyte abs 2.1(H) 0.2 - 0.8 K/cumm [facility] Eosinophil abs 0.0 0.0 - 0.5 K/cumm [facility] Basophil abs 0.0 0.0 - 0.1 K/cumm [facility] Neutrophil pct 86.2 % [facility] Comment: Consistent with previous result Interpretive Data Percent cell count reference ranges are not reported, since discordance with absolute values may lead to misinterpretation of CBC data. Current Interpretive Data was last revised on 2018. Imm gran pct 1.1 % [facility] Comment: Interpretive Data Percent cell count reference ranges are not reported, since discordance with absolute values may lead to misinterpretation of CBC data. Current Interpretive Data was last revised on 2018. Lymphocyte pct 4.6 % [facility] Comment: Interpretive Data Percent cell count reference ranges are not reported, since discordance with absolute values may lead to misinterpretation of CBC data. Current Interpretive Data was last revised on 2018. Monocyte pct 8.0 % [facility] Comment: Interpretive Data Percent cell count reference ranges are not reported, since discordance with absolute values may lead to misinterpretation of CBC data. Current Interpretive Data was last revised on 2018. Eosinophil pct 0.0 % [facility] Comment: Interpretive Data Percent cell count reference ranges are not reported, since discordance with absolute values may lead to misinterpretation of CBC data. Current Interpretive Data was last revised on 2018. Basophil pct 0.1 % [facility] Comment: Interpretive Data Percent cell count reference ranges are not reported, since discordance with absolute values may lead to misinterpretation of CBC data. Current Interpretive Data was last revised on 2018. Blood 10/03/2024 8:30 PM FRONT DESK MONITOR 10/03/2024 9:05 PM FRONT DESK MONITOR us James Robles MD LAB BLOOD ORDERABLES Final Resu lt [facility] [place] [address] * (ABNORMAL) CBC with auto differential (10/03/2024 8:30 PM FRONT DESK MONITOR) WBC 26.3(H) 3.8 - 9.9 K/cumm Hgb 11.3(L) 13.0 - 17.5 g/dL [facility] Hct 33.7(L) 38.9 - 50.3 % [facility] Plt 302 150 - 400 K/cumm [facility] MPV 10.4 9.1 - 12.3 fL [facility] RBC 3.61(L) 4.30 - 5.80 M/cumm [facility] MCV 93.4 81.3 - 96.4 fL [facility] MCH 31.3 27.1 - 33.3 pg [facility] MCHC 33.5 32.3 - 35.7 g/dL [facility] RDW CV 13.2 11.1 - 14.9 % [facility] RDW SD 45.1 35.7 - 48.1 fL [facility] NRBC abs 0.00 0.00 - 0.01 K/cumm [facility] Blood 10/03/2024 8:30 PM FRONT DESK MONITOR 10/03/2024 9:05 PM FRONT DESK MONITOR us James Robles MD LAB BLOOD ORDERABLES Final Resu lt [facility] [place] [address] * eGFR (10/03/2024 8:25 PM FRONT DESK MONITOR) eGFR 60 >=60 mL/min/1. 73 m2 Comment: [...] last reviewed 2021. Blood 10/03/2024 8:25 PM FRONT DESK MONITOR 10/03/2024 9:05 PM FRONT DESK MONITOR James Robles MD LAB BLOOD ORDERABLES Final Resu lt [facility] [place] [address] * (ABNORMAL) Basic metabolic panel (10/03/2024 8:25 PM FRONT DESK MONITOR) Pathologist [facility] Sodium 143 135 - 145 mmol/L Potassium, pl 4.1 3.3 - 4.9 mmol/L [facility] Chloride 113(H) 97 - 110 mmol/L [facility] CO2 20(L) 22 - 32 mmol/L [facility] Anion gap 10 2 - 15 mmol/L [facility] BUN 17 6 - 25 mg/dL [facility] Creatinine 1.25 0.80 - 1.30 mg/dL [facility] Glucose 163 70 - 199 mg/dL [facility] Comment: Interpretive Data Fasting glucose >/= [...] 2022. Calcium 8.0(L) 8.5 - 10.3 mg/dL [facility] Blood 10/03/2024 8:25 PM FRONT DESK MONITOR 10/03/2024 9:05 PM FRONT DESK MONITOR James Robles MD LAB BLOOD ORDERABLES Final Resu lt Performing Organization Address City/[facility]/ZIP Co de Phone Number [facility] [place] [address] * ECG 12 lead (10/03/2024 2:19 PM FRONT DESK MONITOR) [facility] Ventricular Rate EKG/Min 96 BPM [facility] Atrial Rate 96 BPM [facility] MI-Interval (MSEC) 242 ms [facility] QRS-Interval (MSEC) 110 ms [facility] QT-Interval (MSEC) 364 ms [facility] QTc 459 ms [facility] P [place] 69 degrees [facility] R [place] 76 degrees [facility] T [place] 1 degrees [facility] Diagnosis Sinus rhythm with 1st degree A-V [...] CARSON M.D ([id number]) on 10/04/2024 10:42:26 AM [facility] 10/03/2024 2:19 PM FRONT DESK MONITOR 10/04/2024 10:42 AM FRONT DESK MONITOR James Robles MD ECG ORDERABLES Final Result [facility] * POCT glucose (10/03/2024 2:07 PM FRONT DESK MONITOR) [facility] Glucose, POC 128 70 - 199 mg/dL Blood 10/03/2024 2:07 PM FRONT DESK MONITOR 10/03/2024 2:07 PM FRONT DESK MONITOR James Robles MD LAB POCT ORDERABLES - DEVICE Fi nal Result [facility] [place] [address] * (ABNORMAL) eGFR (10/03/2024 4:58 AM FRONT DESK MONITOR) [facility] eGFR 57(L) >=60 mL/min/1. 73 m2 Comment: [...] last reviewed 2021. Blood 10/03/2024 4:58 AM FRONT DESK MONITOR 10/03/2024 5:32 AM FRONT DESK MONITOR us James Robles MD LAB BLOOD ORDERABLES Final Resu lt [facility] [place] [address] * (ABNORMAL) Differential, auto (10/03/2024 4:58 AM FRONT DESK MONITOR) Pathologist [facility] Neutrophil abs 28.0(H) 1.5 - 6.5 K/cumm Imm gran abs 0.2(H) 0.0 - 0.1 K/cumm [facility] Lymphocyte abs 0.9 0.8 - 3.3 K/cumm [facility] Monocyte abs 1.5(H) 0.2 - 0.8 K/cumm [facility] Eosinophil abs 0.0 0.0 - 0.5 K/cumm [facility] Basophil abs 0.1 0.0 - 0.1 K/cumm [facility] Neutrophil pct 91.6 % [facility] Comment: Interpretive Data Percent cell count reference ranges are not reported, since discordance with absolute values may lead to misinterpretation of CBC data. Current Interpretive Data was last revised on 2018. Imm gran pct 0.6 % [facility] Comment: Interpretive Data Percent cell count reference ranges are not reported, since discordance with absolute values may lead to misinterpretation of CBC data. Current Interpretive Data was last revised on 2018. Lymphocyte pct 2.8 % [facility] Comment: Interpretive Data Percent cell count reference ranges are not reported, since discordance with absolute values may lead to misinterpretation of CBC data. Current Interpretive Data was last revised on 2018. Monocyte pct 4.8 % [facility] Comment: Interpretive Data Percent cell count reference ranges are not reported, since discordance with absolute values may lead to misinterpretation of CBC data. Current Interpretive Data was last revised on 2018. Eosinophil pct 0.0 % [facility] Comment: Interpretive Data Percent cell count reference ranges are not reported, since discordance with absolute values may lead to misinterpretation of CBC data. Current Interpretive Data was last revised on 2018. Basophil pct 0.2 % [facility] Comment: Interpretive Data Percent cell count reference ranges are not reported, since discordance with absolute values may lead to misinterpretation of CBC data. Current Interpretive Data was last revised on 2018. Blood 10/03/2024 4:58 AM FRONT DESK MONITOR 10/03/2024 5:32 AM FRONT DESK MONITOR us James Robles MD LAB BLOOD ORDERABLES Final Resu lt [facility] Department of Laboratories [place], [place] [id number] * (ABNORMAL) Basic metabolic panel (10/03/2024 4:58 AM FRONT DESK MONITOR) Sodium 143 135 - 145 mmol/L Potassium, pl 4.7 3.3 - 4.9 mmol/L [facility] Chloride 111(H) 97 - 110 mmol/L [facility] CO2 22 22 - 32 mmol/L [facility] Anion gap 10 2 - 15 mmol/L [facility] BUN 14 6 - 25 mg/dL [facility] Creatinine 1.29 0.80 - 1.30 mg/dL [facility] Glucose 146 70 - 199 mg/dL [facility] Comment: Interpretive Data Fasting glucose >/= [...] 2022. Calcium 8.3(L) 8.5 - 10.3 mg/dL [facility] Blood 10/03/2024 4:58 AM FRONT DESK MONITOR 10/03/2024 5:32 AM FRONT DESK MONITOR us James Robles MD LAB BLOOD ORDERABLES Final Resu lt [facility] [place] [address] * (ABNORMAL) CBC with auto differential (10/03/2024 4:58 AM FRONT DESK MONITOR) WBC 30.5(H) 3.8 - 9.9 K/cumm Hgb 13.0 13.0 - 17.5 g/dL [facility] Hct 38.0(L) 38.9 - 50.3 % [facility] Plt 346 150 - 400 K/cumm [facility] MPV 10.2 9.1 - 12.3 fL [facility] RBC 4.14(L) 4.30 - 5.80 M/cumm [facility] MCV 91.8 81.3 - 96.4 fL [facility] MCH 31.4 27.1 - 33.3 pg [facility] MCHC 34.2 32.3 - 35.7 g/dL [facility] RDW CV 12.9 11.1 - 14.9 % [facility] RDW SD 43.0 35.7 - 48.1 fL [facility] NRBC abs 0.00 0.00 - 0.01 K/cumm [facility] Blood 10/03/2024 4:58 AM FRONT DESK MONITOR 10/03/2024 5:32 AM FRONT DESK MONITOR us James Robles MD LAB BLOOD ORDERABLES Final Resu lt [facility] [place] [address] * XR chest 1 view (Portable) (10/02/2024 9:08 PM FRONT DESK MONITOR) Anatomical Region Laterality Modality Body, Chest N/A Computed Radiogr aphy 10/03/2024 8:28 AM FRONT DESK MONITOR Impressions 10/03/2024 4:05 PM FRONT DESK MONITOR No priors available for comparison. Spinal stimulator [...] James MD, PHD Narrative 10/03/2024 4:05 PM FRONT DESK MONITOR EXAMINATION: 1 view chest radiograph Procedure Note [...] Result * (ABNORMAL) eGFR (10/02/2024 4:01 PM FRONT DESK MONITOR) eGFR 57(L) >=60 mL/min/1. 73 m2 Comment: [...] last reviewed 2021. Blood 10/02/2024 4:01 PM FRONT DESK MONITOR 10/02/2024 4:17 PM FRONT DESK MONITOR James Robles MD LAB BLOOD ORDERABLES Final Resu lt [facility] [place] [address] * (ABNORMAL) Differential, auto (10/02/2024 4:01 PM FRONT DESK MONITOR) Neutrophil abs 14.1(H) 1.5 - 6.5 K/cumm [...] pct 0.7 % [facility] Comment: Interpretive Data Percent cell count reference ranges are not reported, since discordance with absolute values may lead to misinterpretation of CBC data. Current Interpretive Data was last revised on 2018. Lymphocyte pct 8.0 % [facility] Comment: Interpretive Data Percent cell count reference [...] pct 0.2 % [facility] Comment: Interpretive Data Percent cell count reference [...] revised on 2018. Blood 10/02/2024 4:01 PM FRONT DESK MONITOR 10/02/2024 4:17 PM FRONT DESK MONITOR James Robles MD LAB BLOOD ORDERABLES Final Resu lt Performing Organization Address [facility] Co de Phone Number [facility] [place] [address] * Protime-INR (10/02/2024 4:01 PM FRONT DESK MONITOR) PT 12.4 9.7 - 13.0 sec INR 1.14 0.90 - 1.20 [facility] Comment: Interpretive data Oral anticoagulant therapeutic ranges: Venous thromboembolism prophylaxis or treatment: 2.0-3.0 CARDIOLOGY Standard range: 2.0-3.0 High-intensity range: 2.5-3.5 Refer to indication-specific guidelines for appropriate target ranges for prosthetic heart valve replacement. Current interpretive data was last revised on 2019. Blood 10/02/2024 4:01 PM FRONT DESK MONITOR 10/02/2024 4:16 PM FRONT DESK MONITOR James Robles MD LAB BLOOD ORDERABLES Final Resu lt Performing Organization Address [facility] de Phone Number [facility] [place] [address] * (ABNORMAL) aPTT (10/02/2024 4:01 PM FRONT DESK MONITOR) aPTT 27(L) 28 - 38 sec Comment: Interpretive Data Heparin therapeutic range: 66.0 - 100.0 seconds. Range based on correlation with therapeutic heparin activity range of 0.3 - 0.7 Units/mL. Current interpretive data was last revised on 2023. Blood 10/02/2024 4:01 PM FRONT DESK MONITOR 10/02/2024 4:16 PM FRONT DESK MONITOR James Robles MD LAB BLOOD ORDERABLES Final Resu lt Performing Organization Address [facility] Co de Phone Number [facility] Department [place] [address] * (ABNORMAL) CBC with auto differential (10/02/2024 4:01 PM FRONT DESK MONITOR) Pathologist [facility] WBC 16.3(H) 3.8 - 9.9 K/cumm Hgb 12.7(L) 13.0 - 17.5 g/dL [facility] Hct 38.7(L) 38.9 - 50.3 % [facility] Plt 255 150 - 400 K/cumm [facility] MPV 9.8 9.1 - 12.3 fL [facility] RBC 4.10(L) 4.30 - 5.80 M/cumm [facility] MCV 94.4 81.3 - 96.4 fL [facility] MCH 31.0 27.1 - 33.3 pg [facility] MCHC 32.8 32.3 - 35.7 g/dL [facility] RDW CV 12.9 11.1 - 14.9 % [facility] RDW SD 44.5 35.7 - 48.1 fL [facility] NRBC abs 0.00 0.00 - 0.01 K/cumm [facility] Blood 10/02/2024 4:01 PM FRONT DESK MONITOR 10/02/2024 4:17 PM FRONT DESK MONITOR us James Robles MD LAB BLOOD ORDERABLES Final Resu lt [facility] [place] [address] * Phosphorus (10/02/2024 4:01 PM FRONT DESK MONITOR) Pathologist [facility] Phosphorus, pl 2.4 2.3 - 4.5 mg/dL Blood 10/02/2024 4:01 PM FRONT DESK MONITOR 10/02/2024 4:17 PM FRONT DESK MONITOR James Robles MD LAB BLOOD ORDERABLES Final Resu lt [facility] [place] [address] * Magnesium (10/02/2024 4:01 PM FRONT DESK MONITOR) Pathologist [facility] Magnesium 1.9 1.4 - 2.5 mg/dL Blood 10/02/2024 4:01 PM FRONT DESK MONITOR 10/02/2024 4:17 PM FRONT DESK MONITOR James Robles MD LAB BLOOD ORDERABLES Final Resu lt [facility] [place] [address] * (ABNORMAL) Comprehensive metabolic panel (10/02/2024 4:01 PM FRONT DESK MONITOR) Pathologist [facility] Sodium 141 135 - 145 mmol/L Potassium, pl 4.2 3.3 - 4.9 mmol/L [facility] Chloride 112(H) 97 - 110 mmol/L [facility] CO2 22 22 - 32 mmol/L [facility] Anion gap 7 2 - 15 mmol/L [facility] BUN 16 6 - 25 mg/dL [facility] Creatinine 1.30 0.80 - 1.30 mg/dL [facility] Glucose 118 70 - 199 mg/dL [facility] Comment: Interpretive Data Fasting glucose >/= [...] 2022. Calcium 8.3(L) 8.5 - 10.3 mg/dL [facility] Bilirubin, total 0.2 0.1 - 1.2 mg/dL [facility] Protein, pl 5.5(L) 6.5 - 8.5 g/dL [facility] Albumin 3.4(L) 3.5 - 5.0 g/dL [facility] Alk phos 64 40 - 130 Units/L [facility] ALT 19 7 - 55 Units/L [facility] AST 21 10 - 50 Units/L [facility] Blood 10/02/2024 4:01 PM FRONT DESK MONITOR 10/02/2024 4:17 PM FRONT DESK MONITOR us James Robles MD LAB BLOOD ORDERABLES Final Resu lt [facility] [place] [address] * (ABNORMAL) POC Blood Gas and Chemistries, Arterial - (10/02/2024 2:30 PM FRONT DESK MONITOR) pH, Art POC 7.31(L) 7.35 - 7.45 pCO2, Art POC 41 35 - 45 mmHg [facility] pO2, Art POC 264(H) 83 - 108 mmHg [facility] Na, POC 140 135 - 145 mmol/L [facility] K POC 4.0 3.3 - 4.9 mmol/L [facility] Comment: Interpretive Data Not all point of care methods assess for hemolysis. Confirm with instrument and retest K+ if not consistent with clinical signs and symptoms. Current Interpretive Data was last revised on 2024. Cl, POC 111(H) 97 - 110 mmol/L [facility] Ionized Ca, POC 4.86 4.50 - 5.10 mg/dL [facility] Glucose, POC 104 70 - 199 mg/dL [facility] Lactate, POC 1.1 0.7 - 2.2 mmol/L [facility] SO2 (cas) arterial 100(H) 90 - 95 % [facility] Base excess, POC -5.4 mmol/L [facility] Hct, POC 37.0(L) 41.4 - 51.6 % [facility] Total Hb, POC 12.4(L) 13.8 - 17.2 g/dL [facility] Blood 10/02/2024 2:30 PM FRONT DESK MONITOR 10/02/2024 2:30 PM FRONT DESK MONITOR James Robles MD LAB POCT ORDERABLES - DEVICE Fi nal Result [facility] [place] [address] * [place] Fluoroscopy < 1 Hour (10/02/2024 2:00 PM FRONT DESK MONITOR) Narrative [email or web address] - 10/03/2024 5:04 PM FRONT DESK MONITOR The images from this study are not interpreted by Radiology. ??Please refer to the physician's procedure / OR operative note. James Robles MD IMG FLUOROSCOPY PROCEDURES Cammy l Result Performing Organization Address City/[facility]/ZIP Co de Phone Number [email or web address] * (ABNORMAL) POC Blood Gas and Chemistries, Arterial - (10/02/2024 10:43 AM FRONT DESK MONITOR) pH, Art POC 7.32(L) 7.35 - 7.45 pCO2, Art POC 41 35 - 45 mmHg [facility] pO2, Art POC 239(H) 83 - 108 mmHg [facility] Na, POC 141 135 - 145 mmol/L [facility] K POC 4.0 3.3 - 4.9 mmol/L [facility] Comment: Interpretive Data Not all point of care methods assess for hemolysis. Confirm with instrument and retest K+ if not consistent with clinical signs and symptoms. Current Interpretive Data was last revised on 2024. Cl, POC 112(H) 97 - 110 mmol/L [facility] Ionized Ca, POC 4.92 4.50 - 5.10 mg/dL [facility] Glucose, POC 97 70 - 199 mg/dL [facility] Lactate, POC 1.0 0.7 - 2.2 mmol/L [facility] SO2 (cas) arterial 100(H) 90 - 95 % [facility] Base excess, POC -4.7 mmol/L [facility] Hct, POC 35.0(L) 41.4 - 51.6 % [facility] Total Hb, POC 11.8(L) 13.8 - 17.2 g/dL [facility] Blood 10/02/2024 10:4 3 AM FRONT DESK MONITOR 10/02/2024 10:43 AM FRONT DESK MONITOR James Robles MD LAB POCT ORDERABLES - DEVICE Fi nal Result Performing Organization Address City/[facility]/ZIP Co de Phone Number [facility] [place] [address] * Type and screen (10/02/2024 6:18 AM FRONT DESK MONITOR) Ramu, indirect Negative ABO Rh B Negative [facility] Blood 10/02/2024 6:18 AM FRONT DESK MONITOR 10/02/2024 6:26 AM FRONT DESK MONITOR Narrative [facility] - 10/02/2024 7:28 AM FRONT DESK MONITOR Has the patient had Daratumumab or Isatuximab in the past 6 months?->Unknown Sully Archer MACHINE JOINER CEMENT[employer] LAB BLOOD BANK TEST ORDER TALYA Final Result Performing Organization Address [facility] Co de Phone Number [facility] [place] [address] documented in this encounter Visit Diagnoses Diagnosis [...] prior to surgery. Given 10/02/2024 6:15 AM FRONT DESK MONITOR 1,000 mg acetaminophen (TYLENOL) tablet 1,000 mg 1,000 mg, oral, Every 6 hours scheduled, First dose on Wed10/02/24 at 1545, Phase I & Post-op Floor Given 10/05/2024 12:45 PM FRONT DESK MONITOR 1,000 mg Given 10/05/2024 5:51 AM FRONT DESK MONITOR 1,000 mg Given 10/05/2024 12:39 AM FRONT DESK MONITOR 1,000 mg acetaminophen (TYLENOL) tablet 1,000 mg 1,000 mg, oral, Every 6 hours PRN, 1st line for pain, fever, Starting on Tyra 10/05/24 at 1315, Phase I & Post-op Floor Given 10/14/2024 9:52 AM FRONT DESK MONITOR 1,000 mg Given 10/13/2024 6:47 PM FRONT DESK MONITOR 1,000 mg Given 10/13/2024 1:03 AM FRONT DESK MONITOR 1,000 mg apixaban (ELIQUIS) tablet 5 mg 5 mg, oral, Every 12 hours scheduled, First dose on Wed10/13/24 at 2100, Nurse to discontinue heparin infusion order at first administration of apixaban using 'order condition met' order source, Indications: Venous ThrombosisIndications:Venous Thrombosis Given 10/14/2024 9: 51 AM FRONT DESK MONITOR 5 mg Given 10/13/2024 9:02 PM FRONT DESK MONITOR 5 mg azithromycin (ZITHROMAX) tablet 500 mg 500 mg, oral, Daily, First dose on Wed10/04/24 at 0930, For 3 days, Indications: Pneumonia, Community AcquiredIndications:Pneumonia, Community Acquired Given 10/06/2024 8:51 AM FRONT DESK MONITOR 500 mg Given 10/05/2024 8:47 AM FRONT DESK MONITOR 500 mg Given 10/04/2024 10:39 AM FRONT DESK MONITOR 500 mg baclofen (LIORESAL) tablet 10 mg 10 mg, oral, 2 times daily, First dose on Wed10/02/24 at 1730, Phase I & Post-op Floor, Indications: Muscle Spasticity of Spinal OriginIndications:Muscle Spasticity of Spinal Origin Given 10/14/2024 9:52 AM FRONT DESK MONITOR 10 mg Given 10/13/2024 9:02 PM FRONT DESK MONITOR 10 mg Given 10/13/2024 9:44 AM FRONT DESK MONITOR 10 mg bisacodyL (DULCOLAX) suppository 10 mg 10 mg, rectal, Daily PRN, constipation, Starting on Wed10/02/24 at 1933, Phase I & Post-op Floor, If not bowel movement in 48 hours., Indications: constipationIndications:constipati on Given 10/05/2024 11:37 PM FRONT DESK MONITOR 10 mg bisacodyL (DULCOLAX) suppository 10 mg [...] Prophylaxis, SurgicalIndications:Prophylaxis, Surgical Given 10/03/2024 4:56 AM FRONT DESK MONITOR 2,000 mg 400 mL/hr Given 10/02/2024 8:37 PM FRONT DESK MONITOR 2,000 mg 400 mL/hr cefTRIAXone (ROCEPHIN) 2,000 mg/20 mL in sterile water (premix) 2,000 mg 2,000 mg, intravenous, at 240 mL/hr, Administer over 5 Minutes, Every 24 hours scheduled, First dose on Wed10/04/24 at 1000, For 5 doses, Indications: Pneumonia, Community AcquiredIndications:Pneumonia, Community Acquired Given 10/08/2024 10:38 AM FRONT DESK MONITOR 2,000 mg 240 mL/hr Given 10/07/2024 9:03 AM FRONT DESK MONITOR 2,000 mg 240 mL/hr Given 10/06/2024 9:22 AM FRONT DESK MONITOR 2,000 mg 240 mL/hr dexAMETHasone (DECADRON) 4 mg/mL injection 4 mg 4 mg, intravenous, Administer over 2 Minutes, Every 6 hours scheduled, First dose on Wed10/02/24 at 1800, Phase I & Post-op Floor, If cannot tolerate enteral administration., Indications: Cerebral EdemaIndications:Cerebral Edema Given 10/02/2024 4:45 PM FRONT DESK MONITOR 4 mg dexAMETHasone (DECADRON) 4 mg/mL injection 6 mg 6 mg, intravenous, Administer over 2 Minutes, Every 6 hours scheduled, First dose (after last modification) on Wed10/03/24 at 0000, Phase I & Post-op Floor, If cannot tolerate enteral administration., Indications: Cerebral EdemaIndications:Cerebral Edema Given 10/03/2024 11:53 AM FRONT DESK MONITOR 6 mg dexAMETHasone (DECADRON) tablet 1 mg 1 mg, oral, Every 8 hours scheduled, First dose on Wed10/08/24 at 2200, For 1 day Given 10/09/2024 3:45 PM FRONT DESK MONITOR 1 mg Given 10/09/2024 6:33 AM FRONT DESK MONITOR 1 mg Given 10/08/2024 9:10 PM FRONT DESK MONITOR 1 mg dexAMETHasone (DECADRON) tablet 1 mg 1 mg, oral, Every 12 hours scheduled, First dose on Wed10/09/24 at 2200, For 1 day Given 10/10/2024 12:41 PM FRONT DESK MONITOR 1 m g Given 10/10/2024 12:27 AM FRONT DESK MONITOR 1 mg dexAMETHasone (DECADRON) tablet 1 mg 1 mg, oral, Daily, First dose on Wed10/11/24 at 0900, For 1 day Given 10/11/2024 8:47 AM FRONT DESK MONITOR 1 mg dexAMETHasone (DECADRON) tablet 2 mg 2 mg, oral, Every 8 hours scheduled, First dose on Wed10/07/24 at 2200, For 1 day Given 10/08/2024 3:00 PM FRONT DESK MONITOR 2 mg Given 10/08/2024 5:28 AM FRONT DESK MONITOR 2 mg Given 10/07/2024 9:51 PM FRONT DESK MONITOR 2 mg dexAMETHasone (DECADRON) tablet 4 mg 4 mg, oral, Every 6 hours scheduled, First dose on Wed10/05/24 at 1800, For 1 day Given 10/06/2024 12:40 PM FRONT DESK MONITOR 4 m g Given 10/06/2024 5:12 AM FRONT DESK MONITOR 4 mg Given 10/05/2024 11:22 PM FRONT DESK MONITOR 4 mg dexAMETHasone (DECADRON) tablet 4 mg 4 mg, oral, Every 8 hours scheduled, First dose on Wed10/06/24 at 1800, For 1 day Given 10/07/2024 2:13 PM FRONT DESK MONITOR 4 mg Given 10/07/2024 5:38 AM FRONT DESK MONITOR 4 mg Given 10/06/2024 5:26 PM FRONT DESK MONITOR 4 mg dexAMETHasone (DECADRON) tablet 6 mg 6 mg, oral, Every 6 hours scheduled, First dose (after last modification) on Wed10/03/24 at 0000, Phase I & Post-op Floor, If able to swallow tablets., Indications: Cerebral EdemaIndications:Cerebral Edema Given 10/05/2024 12:45 PM FRONT DESK MONITOR 6 mg Given 10/05/2024 5:51 AM FRONT DESK MONITOR 6 mg Given 10/05/2024 12:39 AM FRONT DESK MONITOR 6 mg docusate sodium (COLACE) capsule 100 mg 100 mg, oral, 2 times daily, First dose on Wed10/02/24 at 2100, Phase I & Post-op Floor, If able to swallow capsules. Hold for diarrhea., Indications: constipation, Stool SoftenerIndications:constipation,Stool Softener Given 10/13/2024 9:02 PM FRONT DESK MONITOR 100 mg Given 10/12/2024 8:59 AM FRONT DESK MONITOR 100 mg Given 10/11/2024 8:46 PM FRONT DESK MONITOR [address] (CYMBALTA) extended release capsule 30 mg 30 mg, oral, 2 times daily, First dose on Wed10/02/24 at 2100, Phase I & Post-op Floor, Capsule may be opened and contents mixed with applesauce or apple juice ONLY. Do not crush or chew capsule, Indications: Neuropathic PainIndications:Neuropathic Pain Given 10/14/2024 9:51 AM FRONT DESK MONITOR 30 mg Given 10/13/2024 9:02 PM FRONT DESK MONITOR 30 mg Given 10/13/2024 9:45 AM FRONT DESK MONITOR 30 mg enoxaparin (LOVENOX) syringe 30 mg 30 mg, subcutaneous, Daily (for enoxaparin), First dose on Wed10/03/24 at 2100, Phase I & Post-op Floor, Indications: VTE ProphylaxisIndications:VTE Prophylaxis Given 10/09/2024 8:20 PM FRONT DESK MONITOR 30 mg Left Lower Abdomen Given 10/08/2024 9:10 PM FRONT DESK MONITOR 30 mg Le ft Lower Abdomen Given 10/07/2024 9:51 PM FRONT DESK MONITOR 30 mg Ri ght Lower Abdomen famotidine (PEPCID) injection 20 mg 20 mg, intravenous, Administer over 2 Minutes, Every 12 hours scheduled, First dose on Wed10/02/24 at 2100, Phase I & Post-op Floor, If unable to tolerate enteral administration., Indications: Prevention of Stress UlcerIndications:Prevention of Stress Ulcer Given 10/03/2024 9:16 AM FRONT DESK MONITOR 20 mg famotidine (PEPCID) tablet 20 mg 20 mg, oral, Every 12 hours scheduled, First dose on Wed10/02/24 at 2100, Phase I & Post-op Floor, If able to swallow tablets., Indications: Prevention of Stress UlcerIndications:Prevention of Stress Ulcer Given 10/14/2024 9:52 AM FRONT DESK MONITOR 20 mg Given 10/13/2024 9:02 PM FRONT DESK MONITOR 20 mg Given 10/13/2024 9:45 AM FRONT DESK MONITOR 20 mg finasteride (PROSCAR) tablet 5 mg 5 mg, oral, Every morning, First dose on Wed10/03/24 at 0900, Do not crush, break, or open., Indications: benign prostatic hyperplasia with lower urinary tract sxIndications:benign prostatic hyperplasia with lower urinary tract sx Given 10/14/2024 9:51 AM FRONT DESK MONITOR 5 mg Given 10/13/2024 9:45 AM FRONT DESK MONITOR 5 mg Given 10/12/2024 8:59 AM FRONT DESK MONITOR 5 mg gabapentin (NEURONTIN) capsule 300 mg 300 mg, oral, Once, On Wed10/02/24 at 0630, For 1 dose, Pre-Op, Administer 60 minutes prior to surgery. Given 10/02/2024 6:15 AM FRONT DESK MONITOR 300 mg heparin in 0.45% sodium chloride [...] ThrombosisIndications:Venous Thrombosis New Bag 10/13/2024 4:24 PM FRONT DESK MONITOR 9.6 Units/kg/hr 10.01 mL/hr New Bag 10/12/2024 8:50 AM FRONT DESK MONITOR 9.6 Units/kg/hr 10.01 mL /hr Rate/Dose Change 10/11/2024 6:40 PM FRONT DESK MONITOR 9.6 Units/kg/hr 10 .01 mL/hr hydrALAZINE (APRESOLINE) injection 10 mg 10 mg, intravenous, Administer over 2 Minutes, Once, On Wed10/08/24 at 0545, For 1 dose Given 10/08/2024 5:28 AM FRONT DESK MONITOR 10 mg HYDROmorphone (DILAUDID) injection 0.2 mg [...] more., Indications: PainIndications:Pain Given 10/02/2024 4:59 PM FRONT DESK MONITOR 0.2 mg Given 10/02/2024 4:45 PM FRONT DESK MONITOR 0.2 mg Lactated Ringer's (LR) infusion 30 mL/hr, intravenous, Continuous, Starting on Wed10/02/24 at 0630, Pre-Op Restarted 10/02/2024 3:02 PM FRONT DESK MONITOR Rate/Dose Change 10/02/2024 8:33 AM FRONT DESK MONITOR 30 mL/h r Rate/Dose Verify 10/02/2024 7:29 AM FRONT DESK MONITOR 30 mL/h r magnesium sulfate 2 g/50 mL in water (premix) 2 g 2 g, intravenous, Administer over 60 Minutes, Once, On Wed10/03/24 at 1530, For 1 dose New Bag 10/03/2024 3:18 PM FRONT DESK MONITOR 2 g oxyCODONE (ROXICODONE) tablet 5 mg 5 mg, oral, Once as needed, 1st line for pain, Starting on Wed10/02/24 at 1550, For 1 dose, Phase I, When able to tolerate PO., Indications: PainIndications:Pain Given 10/02/2024 4:42 PM FRONT DESK MONITOR 5 mg oxyCODONE (ROXICODONE) tablet 5 mg 5 mg, oral, Every 4 hours PRN, 2nd line for pain, Starting on Wed10/02/24 at 1933, Phase I & Post-op Floor, May repeat in 1 hour if pain is uncontrolled or increasing. Max 2 doses within 1 dosing interval., Indications: PainIndications:Pain Given 10/14/2024 1:41 PM FRONT DESK MONITOR 5 mg Given 10/14/2024 9:52 AM FRONT DESK MONITOR 5 mg Given 10/14/2024 6:16 AM FRONT DESK MONITOR 5 mg phenylephrine in 0.9% sodium chloride [...] light, Routine Rate/Dose Change 10/03/2024 2:04 PM FRONT DESK MONITOR 1.7 mcg/kg/min 101 mL/hr New Bag 10/03/2024 1:45 PM FRONT DESK MONITOR 1.6 mcg/kg/min 94.9 mL/h r Rate/Dose Change 10/03/2024 1:39 PM FRONT DESK MONITOR 1.6 mcg/kg/min 94. 9 mL/hr phenylephrine in [...] light, Routine New Bag 10/03/2024 4:03 PM FRONT DESK MONITOR 2.8 mcg/kg/min 166 mL/hr Rate/Dose Change 10/03/2024 3:36 PM FRONT DESK MONITOR 2.8 mcg/kg/min 166 mL/hr Rate/Dose Change 10/03/2024 3:34 PM FRONT DESK MONITOR 2.7 mcg/kg/min 160 mL/hr phenylephrine in 0.9% [...] light, Routine Rate/Dose Change 10/04/2024 7:46 AM FRONT DESK MONITOR 0.4 mcg/kg/min 23.7 mL/hr Rate/Dose Change 10/04/2024 7:39 AM FRONT DESK MONITOR 0.3 mcg/kg/min 17. 8 mL/hr Rate/Dose Change 10/04/2024 7:27 AM FRONT DESK MONITOR 0.2 mcg/kg/min 11. 87 mL/hr phenylephrine in [...] from light, Routine Restarted 10/04/2024 9:35 PM FRONT DESK MONITOR 0.1 mcg/kg/min 5.93 mL/hr Rate/Dose Change 10/04/2024 7:17 PM FRONT DESK MONITOR 0.1 mcg/kg/min 5.9 3 mL/hr New Bag 10/04/2024 3:07 PM FRONT DESK MONITOR 0.2 mcg/kg/min 11.87 mL/ hr polyethylene glycol (MIRALAX) packet 17 g 17 g, oral, Daily, First dose on Wed10/02/24 at 2015, Phase I & Post-op Floor, Hold for diarrhea., Indications: constipationIndications:constipation Given 10/12/2024 8:58 AM FRONT DESK MONITOR 17 g Given 10/11/2024 8:47 AM FRONT DESK MONITOR 17 g Given 10/10/2024 8:00 AM FRONT DESK MONITOR 17 g senna (SENOKOT) tablet 1 tablet 1 tablet, oral, 2 times daily, First dose on Wed10/02/24 at 2100, Phase I & Post-op Floor, If able to swallow tablets. Hold for diarrhea., Indications: constipationIndications:constipation Given 10/13/2024 9:02 PM FRONT DESK MONITOR 1 table t Given 10/12/2024 8:59 AM FRONT DESK MONITOR 1 tablet Given 10/11/2024 8:46 PM FRONT DESK MONITOR 1 tablet sodium chloride 0.9% bolus 1,000 mL 1,000 mL, intravenous, Once, On Wed10/03/24 at 1015, For 1 dose New Bag 10/03/2024 9:42 AM FRONT DESK MONITOR 1,000 mL Right Hand sodium chloride 0.9% flush 0.5-20 mL 0.5-20 mL, intra-catheter, Every 8 hours scheduled, First dose on Wed10/02/24 at 2200, Flush volume based on line type and size. , Indications: FlushingIndications:Flushing Given 10/04/2024 5:05 AM FRONT DESK MONITOR 10 mL Given 10/03/2024 9:44 PM FRONT DESK MONITOR 10 mL Given 10/03/2024 2:28 PM FRONT DESK MONITOR 5 mL sodium chloride 0.9% flush 0.5-20 mL 0.5-20 mL, intra-catheter, As needed, line care, Starting on Wed10/02/24 at 1933, Flush volume based on line type and size. Flush before and after each use. , Indications: FlushingIndications:Flushing Given 10/10/2024 8:06 PM FRONT DESK MONITOR 10 mL sodium chloride 0.9% flush 0.5-20 mL 0.5-20 mL, intra-catheter, Every 8 hours scheduled, First dose on Wed10/02/24 at 2200, Flush volume based on line type and size. , Indications: FlushingIndications:Flushing Given 10/04/2024 5:04 AM FRONT DESK MONITOR 20 mL Given 10/03/2024 9:44 PM FRONT DESK MONITOR 10 mL Given 10/03/2024 2:28 PM FRONT DESK MONITOR 5 mL sodium chloride 0.9% infusion 10 mL/hr, intravenous, Continuous, Starting on Wed10/02/24 at 1615, Phase I & Post-op Floor, Carrier Rate/Dose Change 10/04/2024 8:35 AM FRONT DESK MONITOR 10 mL/hr 10 mL/hr Rate/Dose Verify 10/04/2024 6:00 AM FRONT DESK MONITOR 100 mL/hr 100 mL/ hr Rate/Dose Verify 10/04/2024 5:00 AM FRONT DESK MONITOR 100 mL/hr 100 mL/ hr sodium chloride 0.9% infusion 100 mL/hr, intravenous, Continuous, Starting on 10/07/24 at 1000 New Bag 10/08/2024 9:16 PM FRONT DESK MONITOR 100 mL/hr 100 mL/hr New Bag 10/08/2024 11:15 AM FRONT DESK MONITOR 100 mL/hr 100 mL/hr New Bag 10/08/2024 12:28 AM FRONT DESK MONITOR 100 mL/hr 100 mL/hr sodium chloride 0.9% infusion 100 mL/hr, intravenous, Continuous, Starting on Wed10/11/24 at 0530 New Bag 10/13/2024 9:02 PM FRONT DESK MONITOR 100 mL/hr 100 mL/hr New Bag 10/13/2024 7:20 AM FRONT DESK MONITOR 100 mL/hr 100 mL/hr New Bag 10/12/2024 9:08 PM FRONT DESK MONITOR 100 mL/hr 100 mL/hr tamsulosin (FLOMAX) extended [...] urinary tract sx Given 10/02/2024 9:04 PM FRONT DESK MONITOR 0.4 mg tamsulosin (FLOMAX) extended release capsule 0.4 mg 0.4 mg, oral, Daily with dinner, First dose on Wed10/09/24 at 0715, Do not crush, chew, cut, dissolve, open or otherwise manipulate tablet/capsule. Given 10/13/2024 6:47 PM FRONT DESK MONITOR 0.4 mg Given 10/12/2024 5:13 PM FRONT DESK MONITOR 0.4 mg Given 10/11/2024 5:57 PM FRONT DESK MONITOR 0.4 mg vancomycin 1500 mg/515 mL in sodium chloride 0.9% (premix) 1,500 mg 1,500 mg, intravenous, Administer over 90 Minutes, Once, On Wed10/02/24 at 2015, For 1 dose, Phase I, Administer 12 hours after pre-operative dose., Indications: Prophylaxis, SurgicalIndications:Prophylaxis, Surgical New Bag 10/02/2024 8:38 PM FRONT DESK MONITOR 1,500 mg documented in this encounter Discontinued [...] Recently Administered Medications Times are shown in FRONT DESK MONITOR. Scheduled Medication Order 10/12/2024 10/13/2024 10/14/2024 apixaban [...] COVID: Suspected 10/04/2024 10/04/2024 10/04/2024 11:18 AM FRONT DESK MONITOR documented as of this encounter Care Teams Relations Coordinator Relationship Specialty Start Date End Date Sj Benson MD [address] [facility] [place] [address] PCP - General Family Medicine 07/05/24 documented as of this encounter
--- OUTSIDE RECORDS SUMMARY | 2024-11-16 21:29 | XMS_ITS | Encounter Summary ---
Author Organization [facility] Address [address] [place] [address] Phone Care Team Providers Care Vascular Manager Name Role Phone Sj Benson MD Primary Care Provider [phone] Encounter Details Date Type Department Care Team (Late st Contact Info) Description 10/09/2024 Telephone [facility] Cardiology [facility] Advanced Medicine 8th [place] [address] [place] [address] Stephany Carver Social History Tobacco [...] on file 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 no TYPE OF CONSULT: general CALLER'S NAME: JOSE Newell CALLER'S PAGER: [phone] PATIENT'S NAME: Ryan Delgado : 1950 CAMPUS: [facility] PATIENT'S LOCATION: [address] [address] 1 REASON FOR CONSULT: rt lower actue dvt, asing for instructions for anticoagulation and EKG today shows sinus beba w/first degree block, pt has advised of chest pain on going. ATTENDING PHYSICIAN: Dr. Robles CUTTER documented in this encounter Plan of Treatment Not on file documented as of this encounter Visit Diagnoses Not on filedocumented in this encounter Care Teams Vascular Manager Relationship Specialty Start Date End Date Sj Benson MD [address] [facility] [place] [address] PCP - General Family Medicine 07/05/24 documented as of this encounter
--- OUTSIDE RECORDS SUMMARY | 2024-11-16 21:30 | XMS_ITS | Encounter Summary ---
Author Organization [facility] Address [address] [facility] [address] [place] [address] Phone Care Team Providers Care Protocol Manager Name Role Phone Sj Benson MD Primary Care Provider [phone] Reason for Visit * Consultation (Routine) - Closed Specialty Diagnoses / Procedures Referred By Hector t Referred To Contact Neurosurgery Diagnoses Thoracic myelopathy Riley Huddleston MD [address] [facility] [address] [place] [address] Phone: tel: fax: James Robles MD [address] [place] [address] Phone: tel: fax: Referral ID Status Reason Start Date Expiration Date V isits Requested Visits Authorized [id number] Closed Specialty Services Required 07/05/2024 08/04/2025 1 1 Encounter Details Date Type Department Care Team (Late st Contact Info) Description 07/12/2024 1:15 PM CDT Office Visit [facility] Medical Office Building [address] [place] [address] Neftaly Goetz NP [address] [place] [address] Thoracic myelopathy Social History Tobacco [...] on file 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 Robles from [facility] neurosurgery, Dr. Garcia for consideration of [...] EHR. Neftaly Goetz APRN, ROGER- Nurse Practitioner [facility] documented in this encounter Plan of Treatment [...] 07/12/2024 documented in this encounter Care Teams Protocol Manager Relationship Specialty Start Date End Date Sj Benson MD [address] [facility] [place]PT [place] [address] PCP - General Family Medicine 07/05/24 documented as of this encounter
--- OUTSIDE RECORDS SUMMARY | 2024-11-16 21:30 | XMS_ITS | Encounter Summary ---
Author Organization [facility] Address [address] [facility] [address] [place] [address] Phone Care Team Providers Care Gang Punch Operator Name Role Phone Sj Benson MD Primary Care Provider [phone] Encounter Details Date Type Department Care Team (Late st Contact Info) Description 08/16/2024 Telephone [facility] Neurosurgery [address] [facility] Medical Office Building [address] [place] [address] James Robles MD [address] [place] [address] Social History Tobacco Use Types [...] on file 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
--- OUTSIDE RECORDS SUMMARY | 2024-11-16 21:30 | XMS_ITS | Encounter Summary ---
Author Organization [facility] Facility Care Team Providers Care Dredge Operator Supervisor Name Role Phone Unavailable Primary Care Provider Unavailabl e Encounter Details Date Type Department Care Team (Late st Contact Info) Description 06/04/2008 5:50 AM CDT - 06/05/2008 11:26 AM CDT Hospital Encounter [facility] Hanna Nicole MD [address] [place] [address] [address] [place] [id number] Social History Tobacco Use Types Packs/Day Years Used Date Smoking Tobacco: Never Assessed Sex and Gender Information Value Date Recorded Sex Assigned at Not on file 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
--- OUTSIDE RECORDS SUMMARY | 2024-11-16 21:30 | XMS_ITS | Encounter Summary ---
Author Organization [facility] Address [address] [facility] [address] [place] [address] Phone Care Team Providers Care Contracts Specialist Name Role Phone Sj Benson MD Primary Care Provider [phone] Reason for Referral * MRI/CAT/PET Scan (Routine) - Closed Specialty Diagnoses / Procedures Referred By Hector sosa Referred To Contact Radiology Diagnoses Thoracic myelopathy Procedures CT Post Myelogram 3 Levels James Robles MD [address] [place] [address] Phone: tel: fax: [address] [address] Referral ID Status Reason Start Date Expiration Date Visits Re quested Visits Authorized [id number] Closed 07/14/2024 08/13/2025 1 1 Encounter Details Date Type Department Care Team (Late st Contact Info) Description 07/12/[address] 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) Provider Dr. Robles Routed: MARIA ISABEL Robles [...] Prep for CT myelogram was sent via [employer] Spoke with patient on the phone, he [...] Obtain EMG results from [facility] Pt would like to be notified of [...] hour of bedrest. Dr. Burroughs (vice president of compliance) was present and participated in the procedure. [...] hour of bedrest. Dr. Burroughs (vice president of compliance) was present and participated in the procedure. [...] hour of bedrest. Dr. Burroughs (vice president of compliance) was present and participated in the procedure. [...] hour of bedrest. Dr. Burroughs (vice president of compliance) was present and participated in the procedure. [...] myelopathy documented in this encounter Care Teams Contracts Specialist Relationship Specialty Start Date End Date Sj Benson MD [address] [facility] [place] [address] PCP - General Family Medicine 07/05/24 documented as of this encounter
--- OUTSIDE RECORDS SUMMARY | 2024-11-16 21:30 | XMS_ITS | Encounter Summary ---
Author Organization [facility] Facility Care Team Providers Care Butcher Fish Name Role Phone Unavailable Primary Care Provider Unavailabl e Encounter Details Date Type Department Care Team (Late st Contact Info) Description 06/04/2009 - 06/04/2009 11:59 PM CDT Hospital Encounter [facility] Feliciano Fraser MD [address] [place] [address] DR DEPT NEUROSURGERY, [place] [address] Degeneration of lumbar or lumbosacral intervertebral disc Social History Tobacco Use Types Packs/Day Years Used Date Smoking Tobacco: Never Assessed Sex and Gender Information Value Date Recorded Sex Assigned at Not on file 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
--- OUTSIDE RECORDS SUMMARY | 2024-11-16 21:30 | XMS_ITS | Encounter Summary ---
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 Gender Identity Not on file Sexual [...] Perioperative Nursing Note CPAP Clinic at the [facility] ([facility]) Date: 09/13/24 This assessment [...] the 09/13/24 encounter (Pre- Admission Testing) with [facility] NURSE PRE ADMISSION TESTING Medication [...] patient) Information Provided on Healthcare Directives: No Communication/Molecular Biology Professor Needs Communication Needs: Glasses Does caregiver's language differ from patient's?: No Assistive Devices/DME: Eyeglasses, Walker Hearing - Right Ear: Functional Hearing - Left Ear: Functional Discharge Planning Type of Residence: Private residence Living Arrangements: Spouse/significant other Support Systems: Spouse/significant other Patient expects to be discharged to: Private residence 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 This is to lower your risk of infection and to allow the day of surgery team to monitor your oxygen levels. You should leave your valuables and any jewelry at home. No metal or piercings are allowed in the operating room. You should bring your insurance card, a photo ID (example: Administrative Project Coordinator's License) and a method of payment for [...] Chart. If you are having surgery at [facility], please arrive on the day of [...] patients should read below section: Information on [facility] CAM & the Orthopedic Center: Please view [email or web address] (Patient & Visitor Information) for additional details regarding Advanced Directive forms, AWARE, directions, parking information, lodging, Internet access, dining and more. For MyChart information, to activate account or password recovery, please go to [email or web address] or call [phone] (toll-free: [phone]), Wed- Wednesday 8am-5pm. Information for Suicide Prevention: National Suicide Prevention Lifeline (6-633-078-TALK (2973)) orcall or text 962. Chat resources: [facility]. Surgery Times: For patients having surgery @ [facility] or [facility] ([facility]), if your surgeon's office has not notified you of your surgery time by NOON THE BUSINESS DAY BEFORE your surgery, please call [phone] and ask for your surgeon's office Dr. [...] Preoperative Assessment and Planning CPAP Clinic Location: [facility] The night before your surgery: * Do [...] of surgery. * If having surgery at [facility], you may want to bring a credit card if you want to use our Mobile Pharmacy for your discharge medications. Mobile pharmacy is not available at [facility], the Orthopedic Center, or [facility]. Instructions For Your Medications: Pre-Surgery Instructions: [...] 09/13/2024 1:35 PM CDT us Sully Archer POLE PEELING MACHINE OPERATOR HELPER LAB BLOOD ORDERABLES Cammy ramos Result [facility] Department [place] [address] * TYPE AND SCREEN 14 DAY (09/13/2024 [...] BANK TEST ORDER TALYA Final Result [facility] Department [place] [address] documented in this encounter Visit Diagnoses Diagnosis [...] documented as of this encounter Care Teams Scrum Coach Relationship Specialty Start Date End Date Sj Benson MD [address] [facility] [place] [address] PCP - General Family Medicine 07/05/24 documented as of this encounter
--- OUTSIDE RECORDS SUMMARY | 2024-11-16 21:30 | XMS_ITS | Encounter Summary ---
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
--- OUTSIDE RECORDS SUMMARY | 2024-11-16 21:30 | XMS_ITS | Encounter Summary ---
Author Organization [facility] Address [address] [place] [address] Phone Care Team Providers Care Manager Clinical Applications Name Role Phone Sj Benson MD Primary Care Provider [phone] Reason for Referral * Diagnostic Imaging (Routine) - Closed Specialty Diagnoses / Procedures Referred By Hector sosa Referred To Contact Diagnoses Low back pain, non-specific Procedures XR Scoliosis 6 or More Views Neftaly Goetz NP [address] [place] [address] Phone: tel: fax: [address] [address] Referral ID Status Reason Start Date Expiration Date Visits Re quested Visits Authorized [id number] Closed 07/10/2024 08/09/2025 1 1 Encounter Details Date Type Department Care Team (Late st Contact Info) Description 07/10/2024 Orders Only [facility] Neurosurgery [address] [facility] Medical Office Building [address] [place] [address] Neftaly Goetz NP [address] [place] [address] Low back pain, non-specific (Primary Dx) Social History Tobacco Use Types Packs/Day Years Used Date Smoking Tobacco: Never Personal Safety Answer Date Recorded Getting School Help Needed Not on file 06/12 Sex and Gender Information Value Date Recorded Sex Assigned at Not on file 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
--- OUTSIDE RECORDS SUMMARY | 2024-11-16 21:30 | XMS_ITS | Encounter Summary ---
Author Organization [facility] Healthcare Address [address] [place] [address] Care Team Providers Care Humanities And Languages Professor Name Role Phone Sj Benson MD Primary Care Provider Reason for Visit * MRI/CAT/PET Scan (Routine) - Closed Specialty Diagnoses / Procedures Referred By Contac t Referred To Contact Procedures Neuro MR Outside Reference Neftaly Goetz, JOSE [address] [facility] [address] [place] [address] Phone: tel: fax: Referral ID Status Reason Start Date Expiration Date Visits Re quested Visits Authorized [id number] Closed 07/13/2024 08/12/2025 1 1 Encounter Details Date Type Department Care Team (Latest Contact Info) Description 07/13/2024 10:19 PM CDT - 07/13/2024 11:59 PM CDT Hospital Encounter [facility] [address] [place] [phone] Discharge Disposition: Discharge to home or self [...] on file 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 ??There will be no report generated by a [facility] Radiologist. Narrative [facility] - 07/13/2024 10:19 PM CDT EXAMINATION: ??Images For Reference Purposes Only us Neftaly Goetz NP IMG MRI PROCEDURES Final Result [facility] documented in this encounter Visit Diagnoses Not on filedocumented in this encounter Care Teams Humanities And Languages Professor Relationship Specialty Start Date End Date Sj Benson MD [address] [place] [address] [place] [address] PCP - General Family Medicine 07/05/24 documented as of this encounter
--- OUTSIDE RECORDS SUMMARY | 2024-11-16 21:30 | XMS_ITS | Encounter Summary ---
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] Procedures MS ARTHRODESIS POSTERIOR/PSTLAT TQ 1NTRSPC THORACIC MS ROMERO EXC ISPI LES OTH/THN DANTE IDRL THORACIC MS ARTHRODESIS PST/PSTLAT TQ 1NTRSPC EA ADDL NTRSPC MS POSTERIOR SEGMENTAL INSTRUMENTATION 3-6 VRT SEG MS AUTOGRAFT SPINE SURGERY LOCAL FROM SAME INCISION MS ALLOGRAFT FOR SPINE SURGERY ONLY MORSELIZED FUSION SPINAL - POSTERIOR LUMBAR/THORACIC WITH INSTRUMENTATION; T3-5 posterior spinal fusion with 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 LAMINECTOMY THORACIC DECOMPRESSION SPINAL CORD MONITORING Referral ID Status Reason Start Date Expiration Date Visits Re quested Visits Authorized [id number] 1 1 Encounter Details Date Type Department Care Team (Late st Contact Info) Description 10/02/2024 7:29 AM OVERHEAD GARAGE DOOR HANGER Anesthesia Event [facility] Operating Room [address] [place] [id number] Marimar Carr MD PhD [address] [place] [address] Jeronimo Burch NP [address] [facility] [id number] [place] [address] Anesthesia Record Procedure Summary Procedure Name Responsible [...] on file 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 No notable events documented. HEAD GARAGE DOOR HANGER HEAD GARAGE DOOR HANGER * Anesthesia Procedure Notes - Vance Morales MD - 10/02/2024 8:32 AM OVERHEAD GARAGE DOOR HANGER Associated Order(s): Arterial Line Arterial Line Patient [...] patient tolerated procedure well with no complications HEAD GARAGE DOOR HANGER * Anesthesia Procedure Notes - Vance Morales MD - 10/02/2024 8:31 AM OVERHEAD GARAGE DOOR HANGER Associated Order(s): Airway Airway Patient location: OR [...] of attempts: 1 Planned trial extubation: yes HEAD GARAGE DOOR HANGER * Anesthesia Preprocedure Evaluation - Marimar Carr MD PhD - 09/13/2024 10:58 AM CDT Images from the original note were not included. [facility] Preoperative Evaluation Record Evaluation type/location: [facility] Planned procedure site: [facility] (Pods 2/3/5/CONSUMER INSIGHT ANALYST) Date: 09/13/24 Anesthesia Evaluation Ryan Delgado is [...] 2020. Pertinent negatives: hypertension ; CAD ; SC ; CABG ; valvular heart disease; valve [...] Medication protocol when under care of a BUILDING AND CONSTRUCTION MANAGER Planned anesthesia: General TIVA Team communication plan: [...] and agree to proceed. All questions answered. HEAD GARAGE DOOR HANGER documented in this encounter Plan of Treatment Not on file documented as of this encounter Procedures Procedure Name Priority Date/Time Associated Diagnosis Comments ANESTHESIA ARTERIAL LINE PLACEMENT Routine 10/02/2024 8:32 AM OVERHEAD GARAGE DOOR HANGER ANESTHESIA INTUBATION Routine 10/02/2024 8:31 AM OVERHEAD GARAGE DOOR HANGER documented in this encounter Results * Arterial Line (10/02/2024 8:32 AM OVERHEAD GARAGE DOOR HANGER) Narrative Vance Morales MD - 10/02/2024 8:32 AM OVERHEAD GARAGE DOOR HANGER Vance Morales MD ? 10/02/2024 ??8:32 AM [...] Final Result * Airway (10/02/2024 8:31 AM OVERHEAD GARAGE DOOR HANGER) Narrative Vance Morales MD - 10/02/2024 8:31 AM OVERHEAD GARAGE DOOR HANGER Vance Morales MD ? 10/02/2024 ??8:32 AM [...] SurgicalIndications:Prophylaxis , Surgical Given 10/02/2024 12:50 PM OVERHEAD GARAGE DOOR HANGER 2,000 mg Given 10/02/2024 9:05 AM OVERHEAD GARAGE DOOR HANGER 2,000 mg dexAMETHasone (DECADRON) preservative free solution intralumbar, Administer over 2 Minutes, As needed, Starting on Wed10/02/24 at 1208, Anesthesia Intra-op Given 10/02/2024 12:08 PM OVERHEAD GARAGE DOOR HANGER 12 mg glycopyrrolate (ROBINUL) injection intravenous, Administer over 1 Minutes, As needed, Starting on Wed10/02/24 at 0757, Anesthesia Intra-op Given 10/02/2024 2:30 PM OVERHEAD GARAGE DOOR HANGER 0.6 mg Given 10/02/2024 7:57 AM OVERHEAD GARAGE DOOR HANGER 0.4 mg Lactated Ringer's (LR) infusion 30 mL/hr, intravenous, Continuous, Starting on Wed10/02/24 at 0630, Pre-Op Restarted 10/02/2024 3:02 PM OVERHEAD GARAGE DOOR HANGER Rate/Dose Change 10/02/2024 8:33 AM OVERHEAD GARAGE DOOR HANGER 30 mL/h r Rate/Dose Verify 10/02/2024 7:29 AM OVERHEAD GARAGE DOOR HANGER 30 mL/h r lidocaine (cardiac) (XYLOCAINE) preservative free injection intravenous, As needed, Starting on Wed10/02/24 at 0735, Anesthesia Intra-op, Indications: Ventricular ArrhythmiasIndications:Ve ntricular Arrhythmias Given 10/02/2024 7:35 AM OVERHEAD GARAGE DOOR HANGER 80 mg methadone injection syringe intravenous, As needed, Starting on Wed10/02/24 at 0735, Anesthesia Intra-op Given 10/02/2024 7:35 AM OVERHEAD GARAGE DOOR HANGER 20 mg neostigmine (PROSTIGMIN) injection intravenous, Administer over 3 Minutes, As needed, Starting on Wed10/02/24 at 1430, Anesthesia Intra-op Given 10/02/2024 2:30 PM OVERHEAD GARAGE DOOR HANGER 3 mg ondansetron (ZOFRAN) injection intravenous, Administer over 2 Minutes, As needed, Starting on Wed10/02/24 at 1429, Anesthesia Intra-op Given 10/02/2024 2:29 PM OVERHEAD GARAGE DOOR HANGER 4 mg phenylephrine (DANTE-SYNEPHRINE) 1 mg/10 mL (100 mcg/mL) in sodium chloride 0.9% (premix) intravenous, As needed, Starting on Wed10/02/24 at 0735, Anesthesia Intra-op Rate/Dose Change 10/02/2024 3:31 PM OVERHEAD GARAGE DOOR HANGER 0.5 mcg/kg/min 29.67 mL/hr Rate/Dose Change 10/02/2024 3:25 PM OVERHEAD GARAGE DOOR HANGER 0.3 mcg/kg/min 17. 802 mL/hr Rate/Dose Change 10/02/2024 3:13 PM OVERHEAD GARAGE DOOR HANGER 0.1 mcg/kg/min 5.9 34 mL/hr propofoL (DIPRIVAN) 10 mg/mL IV intravenous, Continuous PRN, Starting on Wed10/02/24 at 0810, Anesthesia Intra-op Rate/Dose Change 10/02/2024 1:43 PM OVERHEAD GARAGE DOOR HANGER 80 mcg/kg/min 47.472 mL/hr Rate/Dose Change 10/02/2024 1:24 PM OVERHEAD GARAGE DOOR HANGER 90 mcg/kg/min 53.4 06 mL/hr Given 10/02/2024 1:23 PM OVERHEAD GARAGE DOOR HANGER 40 mg remifentaniL (ULTIVA) 2,000 mcg in sodium chloride 0.9% 40 mL (50 mcg/mL) infusion intravenous, Continuous PRN, Starting on Wed10/02/24 at 0808, Anesthesia Intra-op Rate/Dose Change 10/02/2024 3:01 PM OVERHEAD GARAGE DOOR HANGER 0.05 mcg/kg/min 5.934 mL/hr Rate/Dose Change 10/02/2024 2:58 PM OVERHEAD GARAGE DOOR HANGER 0.1 mcg/kg/min 11. 868 mL/hr Rate/Dose Change 10/02/2024 12:48 PM OVERHEAD GARAGE DOOR HANGER 0.15 mcg/kg/min 1 7.802 mL/hr rocuronium (ZEMURON) injection intravenous, As needed, Starting on Wed10/02/24 at 0926, Anesthesia Intra-op Given 10/02/2024 9:26 AM OVERHEAD GARAGE DOOR HANGER 20 mg sodium chloride 0.9% infusion intravenous, Continuous PRN, Starting on Wed10/02/24 at 0833, Anesthesia Intra-op Restarted 10/02/2024 10:25 AM OVERHEAD GARAGE DOOR HANGER New Bag 10/02/2024 8:33 AM OVERHEAD GARAGE DOOR HANGER 50 mL/hr New Bag 10/02/2024 7:35 AM OVERHEAD GARAGE DOOR HANGER 50 mL/hr succinylcholine syringe intravenous, As needed, Starting on Wed10/02/24 at 0735, Anesthesia Intra-op Given 10/02/2024 7:35 AM OVERHEAD GARAGE DOOR HANGER 100 mg vancomycin 1500 mg/515 mL in sodium chloride 0.9% (premix) 1,500 mg 1,500 mg, intravenous, Administer over 90 Minutes, Once, On Wed10/02/24 at 0630, For 1 dose, Pre-Op, Administer within 120 minutes of incision., Indications: Prophylaxis, SurgicalIndications:Prophylaxis, Surgical Given 10/02/2024 8:13 AM OVERHEAD GARAGE DOOR HANGER 1,500 mg documented in this encounter Care Teams Piano Player Relationship Specialty Start Date End Date Sj Benson MD [address] [place] [address] PCP - General Family Medicine 07/05/24 documented as of this encounter
--- OUTSIDE RECORDS SUMMARY | 2024-11-16 21:30 | XMS_ITS | Encounter Summary ---
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] Procedures NE ARTHRODESIS POSTERIOR/PSTLAT TQ 1NTRSPC THORACIC NE ROMERO EXC ISPI LES OTH/THN LUCIO IDRL THORACIC NE ARTHRODESIS PST/PSTLAT TQ 1NTRSPC EA ADDL NTRSPC NE POSTERIOR SEGMENTAL INSTRUMENTATION 3-6 VRT SEG NE AUTOGRAFT SPINE SURGERY LOCAL FROM SAME INCISION NE ALLOGRAFT FOR SPINE SURGERY ONLY MORSELIZED FUSION SPINAL - POSTERIOR LUMBAR/THORACIC WITH INSTRUMENTATION; T3-5 posterior spinal fusion with 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 LAMINECTOMY THORACIC DECOMPRESSION SPINAL CORD MONITORING Referral ID Status Reason Start Date Expiration Date Visits Re quested Visits Authorized [id number] 1 1 Encounter Details Date Type Department Care Team (Late st Contact Info) Description 10/02/2024 7:30 AM SUPERVISOR ASSEMBLING - 10/02/2024 3:05 PM SUPERVISOR ASSEMBLING Surgery [facility] Operating Room [address] [place] [address] James Robles MD [address] [place] [address] POSTERIOR LUMBAR/THORACIC WITH INSTRUMENTATION T3-5 laminectomy and [...] Major DO Fellow Neurosurgery 1 Case Notes [email or web address] via email add Dr. Burnette- [facility] documented in this encounter Social History [...] file 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ASSEMBLING Gender Identity Not on file Sexual Orientation Not on file documented as of this encounter Last Filed Vital Signs Vital Sign Reading Time Taken Comments Blood Pressure 138/99 10/02/2024 7:10 AM SUPERVISOR ASSEMBLING Pulse 57 10/02/2024 7:20 AM SUPERVISOR ASSEMBLING Temperature 36 ??C (96.8 ??F) 10/02/2024 6:00 AM SUPERVISOR ASSEMBLING Respiratory Rate 17 10/02/2024 7:20 AM SUPERVISOR ASSEMBLING Oxygen Saturation 98% 10/02/2024 7:20 AM SUPERVISOR ASSEMBLING Inhaled Oxygen Concentration - - Weight 98.9 kg (218 lb) 10/02/2024 6:03 AM SUPERVISOR ASSEMBLING Height - - Body Mass Index 29.42 10/03/2024 2:04 PM SUPERVISOR ASSEMBLING documented in this encounter Discharge Summaries * Osiris Guillen ADMINISTRATIVE EXECUTIVE - 10/14/2024 11:16 AM CST Images from the original note were not included. Spine Inpatient Discharge Summary Admitting Provider: James Robles MD Discharge Provider: James Robles MD Primary Care Physician at Discharge: Sj Benson MD [phone] Admission Date: 10/02/2024 Discharge Date: 10/14/2024 Primary [...] NS 07/16/2025 10:00 AM Jarocho Looney MD [facility] Chem/LFT Lab History Latest Ref Rng & [...] says it's OK. -Do not do any engine oiler that cause you to twist, push or [...] James Robles MD at 10/14/2024 1:14 PM SUPERVISOR ASSEMBLING RVISOR ASSEMBLING RVISOR ASSEMBLING documented in this encounter Discharge Instructions * Discharge Instructions* Dc Ott JOSE - 10/09/2024 6:37 AM SUPERVISOR ASSEMBLING Discharge Instructions Thoracic Laminectomy Your doctor has [...] blood pressure), call your family doctor or training program manager. You will be given a prescription for [...] donot hear regarding an appointment, please call [phone] - Neurosurgery: You should follow up in Dr. Robles's clinic in 4-6 weeks with xrays of your back. If you do not have a follow-up appointment, call to schedule one. Please arrive 30 minutes prior to your scheduled appointment. Phone numbers Appointment Scheduling: Doctor???s Office: Dr. James Robles, After hours emergency: or RVISOR ASSEMBLING RVISOR ASSEMBLING RVISOR ASSEMBLING RVISOR ASSEMBLING RVISOR ASSEMBLING * Attachments The following attachments cannot be sent through Care Everywhere. * Deep Vein Thrombosis (AfterCare(R) Instructions(ER/ED)) (Mauritian) * Apixaban (By mouth) (Mauritian) documented in this encounter Medications at Time [...] Comment s Discharge to an Rehab facility [facility] documented in this encounter Progress Notes * Marla Larson RN - 10/14/2024 9:42 AM CST 10/13/24 1440 Discharge Summary Discharge Disposition Acute Rehab Specify Facility [facility] Contact Number [phone] Morris Discharge Records Transfer Form Completed;Chart Copied Recommended Discharge Level of Care Acute Rehab Actual Discharge Level of Care Acute Rehab Does Actual Level of Care Match Care Team Recommendation? Yes Post Acute Care Plan Home Care Services N/A OP Services N/A DME N/A Post Acute Care Facility Yes Referral Status Accepted Accepted Post Acute Care Location and Contact [facility] Accepted Post Acute Care Discharge Additional Assistance Does the patient need discharge transport arranged? Yes Type of Transportation Ambulance/EMS Has discharge transport been arranged? Yes Details of Transportation [facility] [phone] trip # [phone] D/C Transport Anticipated Date 10/14/24 D/C Transport Anticipated Time 1300 Per medical team, patient is medically stable for discharge at this time. Patient has been [facility]. CM spoke with the patient/family, admissions, [...] Patient/family informed patient may require ambulance transport. wireless development manager informed patient/family that even if the patient's insurance benefit includes ambulance transport, it may not cover the full cost of the transportation. The patient may be responsible for any [id number] cost, includingmileage beyond the nearest appropriate facility. Patient/family voiced understanding. No further case management needs identified at this time RVISOR ASSEMBLING * Bladimir Clark MD - 10/14/2024 7:17 [...] James Robles MD at 10/14/2024 1:14 PM SUPERVISOR ASSEMBLING RVISOR ASSEMBLING RVISOR ASSEMBLING * Tiffanie Tirado, PT - 10/13/2024 3:09 [...] treatment team and contact the PT or SHEAR GRINDER OPERATOR currently assigned to this patient. If a physical therapy clinician is not assigned to this patient, please call [phone]. 10/13/24 1509 PT Last Visit Session Type Treatment (co-treat [facility] OT 2/2 level of assist needed) [...] 2 reps with WW, 1 reps with COMMUNICATIONS PLANNER Transfers 2 Transfer From 2 Bed Transfer [...] assist: 10/07/24 10/14/24 -- Goal Details: supervision RVISOR ASSEMBLING * Harley Allen, OT - 10/13/2024 2:58 [...] not assigned to this patient, please call [phone]. 10/13/24 2185 General Session Type Treatment (Co-tx with PT) [...] tasks with mod A 10/04/24 10/26/24 -- RVISOR ASSEMBLING * Pavel Sheets MD - 10/13/2024 6:36 [...] - Heparin gtt (goal 46-70) Dispo rehab ([facility]) DVT prophylaxis: lovenox Responsible team (call resident in bold with questions) Kortney Dean Note created by Pavel Sheets MD on 10/13/2024 at 6:36 AM. Cosigned by James Robles MD at 10/13/2024 8:44 AM SUPERVISOR ASSEMBLING RVISOR ASSEMBLING RVISOR ASSEMBLING * Harley Allen OT - 10/12/2024 10:11 [...] not assigned to this patient, please call [phone]. 10/12/24 1011 General Session Type Treatment OT [...] tasks with mod A 10/04/24 10/26/24 -- RVISOR ASSEMBLING * Tiffanie Tirado, PT - 10/11/2024 2:40 [...] treatment team and contact the PT or SHEAR GRINDER OPERATOR currently assigned to this patient. If a physical therapy clinician is not assigned to this patient, please call [phone]. 10/11/24 1440 PT Last Visit Session Type [...] assist: 10/07/24 10/14/24 -- Goal Details: supervision RVISOR ASSEMBLING * Wild Perez MD - 10/11/2024 6:09 [...] rectal Daily PRN 10 mg at 10/05/24 0267 Carrier Fluids for Secondary Infusion - 0.9% [...] Heparin gtt (goal 46-70) restarted Dispo rehab ([facility] referral sent 10/06) DVT prophylaxis: lovenox Responsible team (call resident in bold with questions) Chris Dean Note created by Wild Perez MD on 10/11/2024 at 6:08 PM. Cosigned by James Robles MD at 10/11/2024 7:37 PM SUPERVISOR ASSEMBLING RVISOR ASSEMBLING RVISOR ASSEMBLING * Nohemi Zuleta, OT - 10/10/2024 1:16 [...] not assigned to this patient, please call [phone]. 10/10/24 9535 General Session Type Treatment OT Received On [...] tasks with mod A 10/04/24 10/11/24 -- RVISOR ASSEMBLING * Wild Perez MD - 10/10/2024 8:01 [...] rectal Daily PRN 10 mg at 10/05/24 8094 Carrier Fluids for Secondary Infusion - 0.9% [...] Ifnot, plan for IVCf today. Dispo rehab ([facility] referral sent 10/06) Dispo rehab (needs referrals) DVT prophylaxis: lovenox Responsible team (call resident in bold with questions) Chris Dean Note created by Wild Perez MD on 10/10/2024 at 8:01 AM. Cosigned by James Robles MD at 10/10/2024 9:20 AM SUPERVISOR ASSEMBLING RVISOR ASSEMBLING RVISOR ASSEMBLING * Keyla Connolly, RD - 10/09/2024 5:06 [...] Adult Diet Regular Diet effective now Question: ([facility]) Diet type Answer: Regular 10/02/241932 Assessment / Impression: Pt reports eating well consuming 100% of meals, no N/V. Weight stable around 218#, no nutrition issues or concerns at this time. Pt with BM today. RD following. Keyla Connolly MS RD LD #[phone] RVISOR ASSEMBLING * Rae Soni - 10/09/2024 11:08 AM [...] treatment team and contact the PT or SHEAR GRINDER OPERATOR currently assigned to this patient. If a physical therapy clinician is not assigned to this patient, please call [phone]. 10/09/24 1108 PT Last Visit Session Type [...] Mike Estrada, PT at 10/09/2024 1:58 PM SUPERVISOR ASSEMBLING RVISOR ASSEMBLING RVISOR ASSEMBLING * Wild Perez MD - 10/09/2024 7:40 [...] James Robles MD at 10/10/2024 9:20 AM SUPERVISOR ASSEMBLING RVISOR ASSEMBLING RVISOR ASSEMBLING * Wild Perez MD - 10/08/2024 6:32 [...] Miles Rodrigez MD at 10/08/2024 9:44 PM SUPERVISOR ASSEMBLING RVISOR ASSEMBLING RVISOR ASSEMBLING * Nicko Zee - 10/07/2024 2:08 PM [...] treatment team and contact the PT or SHEAR GRINDER OPERATOR currently assigned to this patient. If a physical therapy clinician is not assigned to this patient, please call [phone]. 10/07/24 1408 PT Last Visit Session Type [...] Roe Calles, PT at 10/07/2024 3:15 PM SUPERVISOR ASSEMBLING RVISOR ASSEMBLING RVISOR ASSEMBLING * Osiris Guillen NP - 10/06/2024 2:41 PM CST Drain Removal Note [place] drain x1 removed without difficulty. Sutures removed, drain pulled, tubing intact upon removal. Sterile 2x2 dressing and tape placed over insertion site. No erythema noted. Patient tolerated procedure well. RN notified of removal. Plan: - Okay to remove dressing tomorrow and leave site open to air. Osiris Guillen NP RVISOR ASSEMBLING * Tiffanie Tirado PT - 10/06/2024 1:34 [...] treatment team and contact the PT or SHEAR GRINDER OPERATOR currently assigned to this patient. If a physical therapy clinician is not assigned to this patient, please call [phone]. 10/06/24 1334 PT Last Visit Session Type [...] did not feel it when he went, ADMINISTRATIVE EXECUTIVE and RN notified. Pt unable to move [...] and from stand CGA 10/04/24 10/18/24 -- RVISOR ASSEMBLING * Harley Allen, OT - 10/06/2024 1:18 [...] not assigned to this patient, please call [phone]. 10/06/24 6386 General Session Type Treatment OT Received On [...] tasks with mod A 10/04/24 10/11/24 -- RVISOR ASSEMBLING * Wild Perez MD - 10/06/2024 7:50 [...] James Robles MD at 10/06/2024 1:09 PM SUPERVISOR ASSEMBLING RVISOR ASSEMBLING RVISOR ASSEMBLING * Willy Nguyen MD - 10/05/2024 12:41 [...] plan with the ICU team and other medical/excellence consultant staff. Critical Care Time: I have spent 30 minutes in full attendance with this critically ill patient making frequent reassessments and decisions regarding this patient's complex medical care. Critical care time was exclusive of separately billable procedures, treating other patients and teaching time. Willy Nguyen MD Stroke/Neurointensive Attending RVISOR ASSEMBLING * Magali Ocampo, PT - 10/05/2024 9:34 [...] treatment team and contact the PT or SHEAR GRINDER OPERATOR currently assigned to this patient. If a physical therapy clinician is not assigned to this patient, please call [phone]. 10/05/24 0934 PT Last Visit Session Type [...] and from stand CGA 10/04/24 10/18/24 -- RVISOR ASSEMBLING * Florentin Dean MD - 10/05/2024 6:40 [...] James Robles MD at 10/05/2024 8:15 AM SUPERVISOR ASSEMBLING RVISOR ASSEMBLING RVISOR ASSEMBLING * Maria Isabel Unger ADMINISTRATIVE EXECUTIVE - 10/05/2024 6:05 AM CST Neuro Critical [...] legs and feet bilaterally and arrives to [facility] for posterior lumbar-thoracic spinal fusion with [...] fluids: IV SL Flushes: None Last BM: SHEAR GRINDER OPERATOR # Nutrition -- regular diet -- encourage [...] Willy Nguyen MD at 10/06/2024 7:25 AM SUPERVISOR ASSEMBLING RVISOR ASSEMBLING RVISOR ASSEMBLING * Nadia Moulton - 10/04/2024 2:37 PM [...] treatment team and contact the PT or SHEAR GRINDER OPERATOR currently assigned to this patient. If a physical therapy clinician is not assigned to this patient, please call [phone]. 10/04/24 3037 General Chart Reviewed Yes Session Type Evaluation [...] Using Wheeled walker Prior Function Level of Sarita Independent with ADLs;Independent with ambulation;Needs assistance with homemaking Lives With Spouse Receives Help From Spouse/Significant other (multimedia teacher) Fall within the last 6 months Yes [...] with Outstretched Arm While Standing 0 9. Manager Of Clinical Object from Floor from a Standing Position [...] Arin Noriega PT at 10/04/2024 4:26 PM SUPERVISOR ASSEMBLING RVISOR ASSEMBLING RVISOR ASSEMBLING * Taty Quezada OT - 10/04/2024 11:03 [...] not assigned to this patient, please call [phone]. 10/04/24 1103 General Chart Reviewed Yes Session [...] Using Wheeled walker Prior Function Level of Sarita Independent with ADLs;Independent with ambulation;Needs assistance with homemaking (Indp with ADLs with ww except assist for lower body dressing) Lives With Spouse Receives Help From Spouse/Significant other (multimedia teacher assist) Vocational/Occupation (not working) Fall within the [...] name and address after me Jeffrey Adams [address] [place] [address] Without looking at the clock, tell me [...] tasks with mod A 10/04/24 10/11/24 -- RVISOR ASSEMBLING * Keri Ramon MD - 10/04/2024 8:28 AM CST Critical care note I have seen and examined this patient on the day of service. I have reviewed and confirmed the history, vitals, medications, laboratory and radiographic data with the ICU team. I have reviewed and discussed my treatment plan with the ICU team and other medical/excellence consultant staff as documented in the note [...] time. Keri Ramon M.D. Attending Physician, Neurocritical Foreign Language InstructorWater Conservationist, Department of Neurology RVISOR ASSEMBLING * Florentin Dean MD - 10/04/2024 6:40 [...] James Robles MD at 10/04/2024 9:00 PM SUPERVISOR ASSEMBLING RVISOR ASSEMBLING RVISOR ASSEMBLING * Tamanna Porras NP - 10/04/2024 6:16 [...] legs and feet bilaterally and arrives to [facility] for posterior lumbar-thoracic spinal fusion with [...] Adult Diet Regular Diet effective now Question: ([facility]) Diet type Answer: Regular 10/02/241932 IV fluids: NS @ 10 ml/hr carrier Flushes: n/a Last BM: SHEAR GRINDER OPERATOR # Nutrition -- regular diet -- bowel [...] Keri Ramon MD at 10/04/2024 3:53 PM SUPERVISOR ASSEMBLING RVISOR ASSEMBLING RVISOR ASSEMBLING * Wild Perez MD - 10/03/2024 7:42 [...] James Robles MD at 10/03/2024 8:15 AM SUPERVISOR ASSEMBLING RVISOR ASSEMBLING RVISOR ASSEMBLING Associated attestation - James Robles MD - 10/03/2024 8:15 AM SUPERVISOR ASSEMBLING I have seen and examined the patient [...] Incision dressed, drain x1 [place] [address] NNICU MAP>110 Dex 6q6 Diet: Advance as tolerated Antibiotics: Ancef & Vancomycin x 24hrs Activity Restrictions: No activity restrictions Imaging required: None If there are any issues or questions, please page Wild Perez MD at [phone] Wild Perez MD RVISOR ASSEMBLING documented in this encounter H&P Notes * Eliz Chung, ADMINISTRATIVE EXECUTIVE - 10/03/2024 1:48 PM CST Neuro Critical [...] legs and feet bilaterally and arrives to [facility] for posterior lumbar-thoracic spinal fusion with [...] Adult Diet Regular Diet effective now Question: ([facility]) Diet type Answer: Regular 10/02/241932 IV fluids: NS @ 100 ml/hr Flushes: n/a Last BM: SHEAR GRINDER OPERATOR # Nutrition -- ADAT -- bowel reg [...] Keri Ramon MD at 10/04/2024 3:53 PM SUPERVISOR ASSEMBLING RVISOR ASSEMBLING RVISOR ASSEMBLING * Meghan Major DO - 10/02/2024 6:46 [...] resection LAMINECTOMY THORACIC DECOMPRESSION SPINAL CORD MONITORING RVISOR ASSEMBLING RVISOR ASSEMBLING Source Note - Jeronimo Burch NP - 09/13/2024 10:58 AM CDT Images from the original note were not included. [facility] for Preoperative Assessment and Planning Preoperative Evaluation Record Evaluation type/location: CPAP CAM-SC Planned procedure site: [facility] (Pods 2/3/5/RESIDENTIAL SERVICE TECHNICIAN) Date: 09/13/24 Anesthesia Evaluation Lili Delgado is [...] 2020. Pertinent negatives: hypertension ; CAD ; CO ; CABG ; valvular heart disease; valve [...] Deep vein thrombosis (DVT) of upper extremity (CMS/[facility]) ([facility]) 09/29/2021 Essential (primary) hypertension 08/04/2021 Abnormal EKG 07/31/2021 Benign prostatic hyperplasia without urinary obstruction 10/21/2020 Gastroesophageal reflux disease without esophagitis 10/21/2020 Elevated blood-pressure reading without diagnosis of hypertension 10/02/2019 Obesity 03/15/2019 Osteoarthritis of hip 11/15/2017 Lumbar spondylosis 11/15/2017 Pain of right hip joint 11/01/2017 Neuropathy ([facility]) 11/01/2017 Prediabetes 08/10/2017 Stage 3 chronic kidney disease ([facility]) 08/10/2017 Lumbago 06/04/2009 Numbness 06/04/2009 No past [...] up:PIV placed w/o complication Ti Pressley RN RVISOR ASSEMBLING * Jessica Fernández RN - 10/03/2024 11:32 [...] RN Plan: Follow up: Jessica Fernández RN RVISOR ASSEMBLING * Olaf Pena III, MD - 10/02/2024 [...] using the electrical stimulator integrated into the [employer] evoked potential machine. Bilateral TcMEPs were recorded [...] all changes at the times they occurred. RVISOR ASSEMBLING documented in this encounter Consult Notes * [...] with AC x6 months, who presented to [facility] for T3-5 laminectomy/ decompression and intradural [...] with AC x6 months, who presented to [facility] for T3-5 laminectomy/ decompression and intradural [...] to be discussed in detail with outpatient Booster Assembler). Heme f/u with Dr Salmon in about 3 months has been requested. Thank you for allowing us to participate in the care of Mr Delgado and we will continue to follow peripherally. Please call the Hematology service with any additional questions or concerns. This case was discussed with my attending physician Dr Salmon, who agrees with the above mentionedassessment and plan. [phone] Weekdays 8AM-4PM Weeknights 4PM - 8AM, all day on Weekends, all day on holidays and my days off work, please contactthe on-call fellow at [phone] For patients or family members viewing this note through [employer] programs. This note was written as a [...] be involved in your care. Claudia Mujkanovic, ADMINISTRATIVE EXECUTIVE Department of Hematology 10/09/2024 , 3:53 PM Cosigned by Jason Salmon MD at 10/15/2024 6:32 PM SUPERVISOR ASSEMBLING RVISOR ASSEMBLING RVISOR ASSEMBLING * Mary Lou Jack MD - 10/09/2024 [...] months. In 07/2021 he also saw OSH manager french Dr. Saez for pre-op eval, and was [...] kidney disease) stage 3, GFR 30-59 ml/min ([facility]), Obesity, and Renal cyst. PSHX: has a past surgical history that includes Tumor removal (2020); Spinal cord stimulator implant (2023); Lumbar spine surgery (2020); and Spine surgery (2010). Family Hx: Adopted so unsure of family history. Possible CO in father Social Hx: reports that he [...] 5PM or on weekends, please page the food crops farm hand ui application developer with any questions or concerns. Mary Lou Mayfield Ma, MD 11:30 AM 10/09/24 Cosigned by Sofia Ochoa MD at 10/10/2024 2:53 PM SUPERVISOR ASSEMBLING RVISOR ASSEMBLING RVISOR ASSEMBLING RVISOR ASSEMBLING RVISOR ASSEMBLING Associated attestation - Sofia Ochoa MD - 10/10/2024 2:53 PM SUPERVISOR ASSEMBLING I have seen and examined the patient [...] The phone number for our clinic is [phone] - Urology will sign off. Thank you for allowing us to participate in this patient's care. To reach the urology consult resident from 6:00 to 18:00 (Wednesday-Wednesday), please call [phone].If you want to contact Urology consults after hours (18:00 to 6:00) and over the weekend, please call the edm operator Neha Templeton NP RVISOR ASSEMBLING documented in this encounter Nursing Notes * Jaimie Curiel RN - 10/11/2024 6:51 PM CST [id number] Alert and appropriate. Medicated for pain. Zheng to gravity. Tolerating diet. Heparin gttper nomogram. IVF as ordered. Up in chair. Total lift back to bed. See labs, flowsheets. RVISOR ASSEMBLING * Kristin Land RN - 10/05/2024 9:37 PM CST Patient transferred to room 75800-46. Neuro status and VSS. Bedside shift report given to MARK Fox. Patient belongings transferred w/ pt, and are at bedside. RVISOR ASSEMBLING * Melia Maria RN - 10/02/2024 4:23 [...] not unexpected. Neurosurgery at bedside assessing patient. RVISOR ASSEMBLING RVISOR ASSEMBLING documented in this encounter Miscellaneous Notes * Plan of Care - Marla Larson RN - 10/13/2024 2:12 PM CST Per Medical Chart/Rounds/IDR: Heparin infusion. Zheng replaced ADD: 10/14 Plan/referrals made/in place: [facility] following Transportation: [facility] F/U Appointments: Patient to follow up with spinal surgery Plan for weekend discharge: [facility] following. Liacarlee Brown [phone] ui application developer for this weekend. [facility] on [facility], trip # [phone]. Discharge packet initiated and placed by patient's paper chart folder. Will follow. RVISOR ASSEMBLING RVISOR ASSEMBLING * Plan of Care - Marla Larson [...] and ensure patient has continuum of care. Waste Paper Hammermill Operator will continue to follow and assist with discharge planning as needed RVISOR ASSEMBLING * Plan of Care - Marla Larson [...] and ensure patient has continuum of care. Waste Paper Hammermill Operator will continue to follow and assist with discharge planning as needed RVISOR ASSEMBLING RVISOR ASSEMBLING * Plan of Care - Joyce Guillen [...] VS, I/O, pain, and maintain safe environment. Relocation Commissioner Patient Centered Goal for Treatment: Get better and go home Summary: Pt resting comfortably in bed, set up for breakfast. RVISOR ASSEMBLING * Plan of Davy - Mauricio Esparza RN - 10/12/2024 6:52 AM SUPERVISOR ASSEMBLING Goals: Clinical Goals for the Shift: VSS, monitor labs, management of pain, remain free from falls, promote rest and comfort Custodial Patient Centered Goal for Treatment: Get better [...] impaired skin integrity will decrease Outcome: Progressing RVISOR ASSEMBLING * Plan of Care - Neville Larson [...] free from falls, promote rest and comfort Custodial Patient Centered Goal for Treatment: Get better and go home Summary: VSS, A&O x4, controlled pain with pain medications. Pt resting between care. Fall precautions in place. Call light in reach. RVISOR ASSEMBLING * Plan of Care - Neha Velasquez RN - 10/11/2024 12:46 PM SUPERVISOR ASSEMBLING Goals: Clinical Goals for the Shift: VSS, monitor labs, management of pain, remain free from falls, promote rest and comfort Custodial Patient Centered Goal for Treatment: Get better and go home Summary: Problem: Lack of Knowledge Goal: Ability to develop a pain control plan will improve Outcome: Progressing Flowsheets (Taken 10/11/2024 9922) Ability to develop a pain control plan [...] of mobility impairment will improve Outcome: Progressing RVISOR ASSEMBLING * Plan of Care - Marla Larson RN - 10/11/2024 9:58 AM CST Per Rounds: Possible restart heparin infusion ADD: 10/12 vs 10/13 Plan & referrals made/in place: [facility] following. Patient's Identified Problem/Goal Problem: Ensure acute medical needs are met and patient has a safe discharge plan. Goal: Secure a discharge plan that patient/family are agreeable with and ensure patient has continuum of care. Waste Paper Hammermill Operator will continue to follow and assist with discharge planning as needed RVISOR ASSEMBLING * Plan of Care - Neville Larson [...] precautions in place. Call light in reach. RVISOR ASSEMBLING * Consults, Subsequent - Claudia Ryan NP - 10/10/2024 3:48 PM SUPERVISOR ASSEMBLING Images from the original note were not [...] with AC x6 months, who presented to [facility] for T3-5 laminectomy/ decompression and intradural [...] consider: Enoxaparin 30mg BID---> 10/16/2024 Heparin gtt [id number]---> if no bleeding concerns, switch to Apixaban 5mg BID Vs. Heparin gtt with PTT goal per primary team and no bolus--->10/16/2024 Heparin gtt with standard PTT goal 60-90 [id number]---> Apixaban 5mg BID if no concern for [...] to call with questions or concerns. Pg [phone] Weekdays 8AM-4PM. Weeknights 4PM - 8AM, all day on Weekends, all day on holidays and my days off work, please contactthe on-call fellow at [phone] For patients or family members viewing this note through [employer] programs. This note was written as a [...] Sherry Calles MD at 10/13/2024 2:48 PM SUPERVISOR ASSEMBLING RVISOR ASSEMBLING RVISOR ASSEMBLING * Significant Event - Anibal Camacho MD - 10/10/2024 9:45 AM SUPERVISOR ASSEMBLING Interventional Radiology Consult Resolution Note Reason for [...] discussed with Dr. Huntley, the IR Attending. RVISOR ASSEMBLING * Plan of Care - Marla Larson RN - 10/10/2024 8:55 AM CST Per Rounds: patient with DVT. Therapeutic AC vs IVC filter. ADD: 10/12 Plan & referrals made/in place: [facility] following. Notified liaison Lachelle of updated ADD Patient's Identified Problem/Goal Problem: Ensure acute medical needs are met and patient has a safe discharge plan. Goal: Secure a discharge plan that patient/family are agreeable with and ensure patient has continuum of care. Waste Paper Hammermill Operator will continue to follow and assist with discharge planning as needed RVISOR ASSEMBLING * Plan of Care - Neville Larson [...] precautions in place. Call light in reach. RVISOR ASSEMBLING * Plan of Care - Geovanni Bell [...] of mobility impairment will improve Outcome: Progressing RVISOR ASSEMBLING * Plan of Care - Marla Larson [...] and ensure patient has continuum of care. Waste Paper Hammermill Operator will continue to follow and assist with discharge planning as needed RVISOR ASSEMBLING * Plan of Care - Sia Mathias [...] Stability: Monitor vital signs, rhythm, and trends RVISOR ASSEMBLING * Plan of Care - Geovanni Bell [...] Understanding discharge needs will improve Outcome: Progressing RVISOR ASSEMBLING * Plan of Care - Skinny Dubose [...] oxycodone, carleen lift, will continue to monitor. RVISOR ASSEMBLING * Plan of Care - Marla Larson RN - 10/06/2024 10:57 AM SUPERVISOR ASSEMBLING Waste Paper Hammermill Operator noted patient has been recommended for Inpatient Rehab by PT/OT. Waste Paper Hammermill Operator met withthe patient at bedside to discuss recommendations by therapy and to work on a potential discharge disposition plan. Waste Paper Hammermill Operator provided education to patien on the rehabilitation process. Patient reported being interested in placement for rehabilitation. wireless development manager provided a list of Inpatient Rehab Facility choices to patient. [facility] out additional [facility] via [facility]. CM awaiting acceptance from an Inpatient Rehab Facility and will continue to work on discharge planning with patient and family. RVISOR ASSEMBLING * ECIN Note - Marla Larson RN [...] assess Unable to assess Unable to assess RVISOR ASSEMBLING * ECIN Note - Marla Larson RN [...] Equipment-Currently Using Wheeled walker - Level of Sarita Independent with ADLs;Independent with ambulation;Needs assistance with homemaking Indp with ADLs with ww except assist for lower body dressing -CH Lives With Spouse -CH Receives Help From Spouse/Significant other multimedia teacher assist - Vocational/Occupation -- not working -CH [...] name and address after me Jeffrey Adams [address] [place] [address] - Without looking at the clock, tell [...] 72 Hours PT Evaluation Row Name 10/04/24 4467 Chart Reviewed Yes -GM (r) LG (c) [...] walker -GM (r) LG (c) Level of Sarita Independent with ADLs;Independent with ambulation;Needs assistance with homemaking -GM (r) LG (c) Lives With Spouse -GM (r) LG (c) Receives Help From Spouse/Significant other multimedia teacher -GM (r) LG (c) Fall within the [...] Standing 0 -GM (r) LG (c) 9. Manager Of Clinical Object from Floor from a Standing Position [...] 168 Hours) PT Treatment Row Name 10/05/24 0956 PT Last Visit Session Type Treatment -DT [...] Progress Notes signed by Magali Ocampo, PT RVISOR ASSEMBLING * ECIN Note - Marla Larson RN - 10/06/2024 10:56 AM CST Patient Information: Meds and Admin Active Only All Meds/Most Recent Administrations acetaminophen (TYLENOL) tablet 1,000 mg [[id number]] Ordering Provider: James Robles MD Status: Completed (Past End Date/Time) Ordered On: 10/02/24547 Starts/Ends: 10/02/24629 - 10/02/24614 Ordered Dose (Remaining/Total): 1,000 mg (0/1) Route: oral Frequency: Once Ordered Rate/Order Duration: -- / -- Admin Instructions: Administer 60 minutes prior to surgery. Timestamps Action Dose Route Other Information 10/02/24614 Given 1,000 mg oral Performed by: Juanis Lozano RN Scanned Package: 0313-0611-14, 3633-8608-44 gabapentin (NEURONTIN) capsule 300 mg [[id number]] Ordering Provider: James Robles MD Status: Completed (Past End Date/Time) Ordered On: 10/02/24547 Starts/Ends: 10/02/24629 - 10/02/24 0615 Ordered Dose (Remaining/Total): 300 mg (0/1) Route: oral Frequency: Once Ordered Rate/Order Duration: -- / -- Admin Instructions: Administer 60 minutes prior to surgery. Timestamps Action Dose Route Other Information 10/02/24614 Given 300 mg oral Performed by: Juanis Lozano RN Scanned Package: 19374-459-66 ceFAZolin (ANCEF) 2,000 mg/20 mL in sterile water (premix) 2,000 mg [[id number]] Ordering Provider: James Robles MD Status: Completed [...] in sodium chloride 0.9% (premix) 1,500 mg [[id number]] Ordering Provider: James Robles MD Status: Completed [...] Morales MD oxyCODONE (ROXICODONE) tablet 5 mg [[id number]] Ordering Provider: Vance Morales MD Status: Completed (Past End Date/Time) Ordered On: 10/02/241549 Starts/Ends: 10/02/241549 - 10/02/24 1642 Ordered Dose (Remaining/Total): 5 mg (0/1) Route: oral Frequency: Once as needed Ordered Rate/Order Duration: -- / -- Admin Instructions: When able to tolerate PO. Timestamps Action Dose Route Other Information 10/02/24 1642 Given 5 mg oral Performed by: Melia Maria RN Scanned Package: 68912-421-80 baclofen (LIORESAL) tablet 10 mg [[id number]] Ordering Provider: Wild Perez MD Status: Dispensed Ordered On: 10/02/24 154 Start: 10/02/24 1730 Ordered Dose (Remaining/Total): 10 mg (--/--) Route: oral Frequency: 2 times daily Ordered Rate/Order Duration: -- / -- Timestamps Action Dose Route Other Information 10/06/24 0851 Given 10 mg oral Performed by: Skinny Dubose RN Scanned Package: [address]-[address] (CYMBALTA) extended release capsule 30 mg [[id number]] Ordering Provider: Wild Perez MD Status: Dispensed [...] Performed by: Skinny Dubose RN Scanned Package: 79842-455-34 finasteride (PROSCAR) tablet 5 mg [[id number]] Ordering Provider: Tamanna Porras NP Status: Dispensed Ordered On: 10/02/241932 Start: 10/03/24 0900 Ordered Dose (Remaining/Total): 5 mg (--/--) Route: oral Frequency: Every morning Ordered Rate/Order Duration: -- / -- Admin Instructions: Do not crush, break, or open. Timestamps Action Dose Route Other Information 10/06/24 0851 Given 5 mg oral Performed by: Skinny Dubose RN Scanned Package: 07065-298-63 sodium chloride 0.9% flush 0.5-20 mL [[id number]] Ordering Provider: Wild Perez MD Status: Verified Ordered On: 10/02/241932 Start: 10/02/241932 Ordered Dose (Remaining/Total): 0.5-20 mL (--/--) Route: intra-catheter Frequency: As needed Ordered Rate/Order Duration: -- / -- Admin Instructions: Flush volume based on line type and size. Flush before and after each use. (No admins scheduled or recorded for this medication) Carrier Fluids for Secondary Infusion - 0.9% Sodium Chloride [[id number]] Ordering Provider: Wild Perez MD Status: Verified [...] this medication) oxyCODONE (ROXICODONE) tablet 5 mg [[id number]] Ordering Provider: Wild Perez MD Status: Verified [...] this medication) ondansetron (ZOFRAN) injection 4 mg [[id number]] Ordering Provider: Wild Perez MD Status: Verified Ordered On: 10/02/241932 Start: 10/02/241932 Ordered Dose (Remaining/Total): 4 mg (--/--) Route: intravenous Frequency: Every 6 hours PRN Ordered Rate/Order Duration: -- / 2 Minutes Admin Instructions: Proceed to trimethobenzamide if no relief within 30 minutes. (No admins scheduled or recorded for this medication) famotidine (PEPCID) tablet 20 mg [[id number]] Ordering Provider: Wild Perez MD Status: Dispensed Ordered On: 10/02/241932 Start: 10/02/242099 Ordered Dose (Remaining/Total): 20 mg (--/--) Route: oral Frequency: Every 12 hours scheduled Ordered Rate/Order Duration: -- / -- Admin Instructions: If able to swallow tablets. Timestamps Action Dose Route Other Information 10/06/24850 Given 20 mg oral Performed by: Skinny Dubose RN Scanned Package: 98282-925-74 docusate sodium (COLACE) capsule 100 mg [[id number]] Ordering Provider: Wild Perez MD Status: Dispensed Ordered On: 10/02/241932 Start: 10/02/242099 Ordered Dose (Remaining/Total): 100 mg (--/--) Route: oral Frequency: 2 times daily Ordered Rate/Order Duration: -- / -- Admin Instructions: If able to swallow capsules. Hold for diarrhea. Timestamps Action Dose Route Other Information 10/06/24850 Given 100 mg oral Performed by: Skinny Dubose RN Scanned Package: 76783-680-52 senna (SENOKOT) tablet 1 tablet [[id number]] Ordering Provider: Wild Perez MD Status: Dispensed Ordered On: 10/02/241932 Start: 10/02/242099 Ordered Dose (Remaining/Total): 1 tablet (--/--) Route: oral Frequency: 2 times daily Ordered Rate/Order Duration: -- / -- Admin Instructions: If able to swallow tablets. Hold for diarrhea. Timestamps Action Dose Route Other Information 10/06/24850 Given 1 tablet oral Performed by: Skinny Dubose RN Scanned Package: 5917-1143-99 polyethylene glycol (MIRALAX) packet 17 g [[id number]] Ordering Provider: Wild Perez MD Status: Dispensed Ordered On: 10/02/241932 Start: 10/02/242014 Ordered Dose (Remaining/Total): 17 g (--/--) Route: oral Frequency: Daily Ordered Rate/Order Duration: -- / -- Admin Instructions: Hold for diarrhea. Timestamps Action Dose Route Other Information 10/06/24 0851 Given 17 g oral Performed by: Skinny Dubose RN Scanned Package: 25855-472-72 bisacodyL (DULCOLAX) suppository 10 mg [[id number]] Ordering Provider: Wild Perez MD Status: Dispensed Ordered On: 10/02/241932 Start: 10/02/241932 Ordered Dose (Remaining/Total): 10 mg (--/--) Route: rectal Frequency: Daily PRN Ordered Rate/Order Duration: -- / -- Admin Instructions: If not bowel movement in 48 hours. Timestamps Action Dose Route Other Information 10/05/242336 Given 10 mg rectal Performed by: Kay Aaron RN Scanned Package: 2543-7498-94 enoxaparin (LOVENOX) syringe 30 mg [[id number]] Ordering Provider: Wild Perez MD Status: Dispensed Ordered On: 10/02/241932 Start: 10/03/242099 Ordered Dose (Remaining/Total): 30 mg (--/--) Route: subcutaneous Frequency: Daily (for enoxaparin) Ordered Rate/Order Duration: -- / -- Timestamps Action Dose Route / Site Other Information 10/05/241957 Given 30 mg subcutaneous Left Lower Abdomen Performed by: Kristin Land RN Scanned Package: 55839-171-90 ceFAZolin (ANCEF) 2,000 mg/20 mL in sterile water (premix) 2,000 mg [[id number]] Ordering Provider: Wild Perez MD Status: Completed [...] Performed by: Meliza Koch RN Scanned Package: [address]-2 vancomycin 1500 mg/515 mL in sodium chloride 0.9% (premix) 1,500 mg [[id number]] Ordering Provider: Wild Perez MD Status: Completed [...] Performed by: Melia Marai RN Scanned Package: 1543-8243-15 sodium chloride 0.9% bolus 1,000 mL [[id number]] Ordering Provider: Zora Martínez MD Status: Completed [...] Performed by: Alida Larry RN Scanned Package: 3355-7243-05 magnesium sulfate 2 g/50 mL in water (premix) 2 g [[id number]] Ordering Provider: Laura Sheets NP Status: Completed [...] mL in sterile water (premix) 2,000 mg [[id number]] Ordering Provider: Geraldine Leary NP Status: Dispensed [...] Performed by: Skinny Dubose RN Scanned Package: [address]-3 azithromycin (ZITHROMAX) tablet 500 mg [[id number]] Ordering Provider: Geraldine Leary NP Status: Completed (Past End Date/Time) Ordered On: 10/04/24 0850 Starts/Ends: 10/04/24 0930 - 10/06/24 0851 Ordered Dose (Remaining/Total): 500 mg (0/3) Route: oral Frequency: Daily Ordered Rate/Order Duration: -- / -- Timestamps Action Dose Route Other Information 10/06/24 0851 Given 500 mg oral Performed by: Skinny Dubose RN Scanned Package: [address]-8, [address]-2 acetaminophen (TYLENOL) tablet 1,000 mg [[id number]] Ordering Provider: Geraldine Leary NP Status: Verified Ordered On: 10/05/24 1301 Start: 10/05/24 1315 Ordered Dose (Remaining/Total): 1,000 mg (--/--) Route: oral Frequency: Every 6 hours PRN Ordered Rate/Order Duration: -- / -- (No admins scheduled or recorded for this medication) dexAMETHasone (DECADRON) tablet 4 mg [[id number]] Ordering Provider: Cherry Hwang MD Status: Dispensed Ordered On: 10/05/241618 Starts/Ends: 10/05/241799 - 10/06/241758 Ordered Dose (Remaining/Total): 4 mg (1/4) Route: oral Frequency: Every 6 hours scheduled Ordered Rate/Order Duration: -- / -- Timestamps Action Dose Route Other Information 10/06/24 0512 Given 4 mg oral Performed by: Kay Aaron RN Scanned Package: 95189-860-88 dexAMETHasone (DECADRON) tablet 4 mg [[id number]] Ordering Provider: Cherry Hwang MD Status: Dispensed Ordered On: 10/05/241618 Starts/Ends: 10/06/241799 - 10/07/242158 Ordered Dose (Remaining/Total): 4 mg (3/3) Route: oral Frequency: Every 8 hours scheduled Ordered Rate/Order Duration: -- / -- (No admins scheduled or recorded for this medication) dexAMETHasone (DECADRON) tablet 2 mg [[id number]] Ordering Provider: Cherry Hwang MD Status: Dispensed Ordered On: 10/05/241618 Starts/Ends: 10/07/242199 - 10/08/242158 Ordered Dose (Remaining/Total): 2 mg (3/3) Route: oral Frequency: Every 8 hours scheduled Ordered Rate/Order Duration: -- / -- (No admins scheduled or recorded for this medication) dexAMETHasone (DECADRON) tablet 1 mg [[id number]] Ordering Provider: Cherry Hwang MD Status: Verified Ordered On: 10/05/241618 Starts/Ends: 10/08/242199 - 10/09/242158 Ordered Dose (Remaining/Total): 1 mg (3/3) Route: oral Frequency: Every 8 hours scheduled Ordered Rate/Order Duration: -- / -- (No admins scheduled or recorded for this medication) dexAMETHasone (DECADRON) tablet 1 mg [[id number]] Ordering Provider: Cherry Hwang MD Status: Verified Ordered On: 10/05/241618 Starts/Ends: 10/09/24 2200 - 10/10/242058 Ordered Dose (Remaining/Total): 1 mg (2/2) Route: oral Frequency: Every 12 hours scheduled Ordered Rate/Order Duration: -- / -- (No admins scheduled or recorded for this medication) dexAMETHasone (DECADRON) tablet 1 mg [[id number]] Ordering Provider: Cherry Hwang MD Status: Verified Ordered On: 10/05/241618 Starts/Ends: 10/11/24 09 - 10/12/24 0859 Ordered Dose (Remaining/Total): 1 mg (11/22) Route: oral Frequency: Daily Ordered Rate/Order Duration: -- / -- (No admins scheduled or recorded for this medication) RVISOR ASSEMBLING * ECIN Note - Marla Larson RN [...] 10/06/24 0700 - 10/07/24 0659 Total Total 0772-9615 0998-3204 8465-9781 Total 0651-4377 7092-0571 3171-7724 Total Intake (ml) 4486.5 1142.6 20 618 649 0497 120 -- -- 120 Output (ml) 3720 1935 907 366 3406 2500 -- -- -- -- Net (ml) [...] On 10/03 1430 On 10/03 1200 On RVISOR ASSEMBLING * Plan of Care - Kay Aaron RN - 10/06/2024 3:29 AM SUPERVISOR ASSEMBLING Goals: Clinical Goals for the Shift: VSS, [...] Understanding discharge needs will improve Outcome: Progressing RVISOR ASSEMBLING * Provider Query - Tamanna Porras NP [...] GÓMEZ. Lactic Acidosis. [Updated 2018Oct 16]. In: Mydish [Internet]. [facility]): Notif[employer]; 2019-. Available from: https://www.ncbi.nlm.nih.gov/books/GBO769829/ https://www.[employer].sezmi/contents/szjnea-xz-xmipic-acidosis https://www.[employer]/professional/wlrqkokai-nqq-fyajvihpu-disorders/acid -exjc-ojdkaazlbj-loy-disorders/metabolic-acidosis https://www.[employer]/professional/gbulvihpr-oac-uspibjfop-disorders/acid -rbsk-tvbqpnafma-rgs-disorders/respiratory-acidosis https://www.[employer]/professional/onqagbldq-smm-gsmnhtuuf-disorders/acid -ttzj-kmonvoefeb-sne-disorders/lactic-acidosis Guide to Clinical Validation, Documentation and Coding, 2019 Edition, [employer] As of August 22, 2022, [facility] Final Rule updates, if acute [...] medical record. Respectfully Kannan LA RN CCDS [email or web address] [phone] RVISOR ASSEMBLING * Plan of Care - Eric Valdez [...] Understanding discharge needs will improve Outcome: Ongoing RVISOR ASSEMBLING * Plan of Davy - Leonel Blackwell [...] Understanding discharge needs will improve Outcome: Progressing RVISOR ASSEMBLING * Plan of Care - Eric Valdez [...] Understanding discharge needs will improve Outcome: Ongoing RVISOR ASSEMBLING * Provider Query - Tamanna Porras NP [...] legs and feet bilaterally and arrives to [facility] for posterior lumbar-thoracic spinal fusion with [...] Penicillin Streptomycin (high-level) Tetracycline Trimeth/Sulfa Vancomycin References [facility] Antibiogram 2021 [facility] Antibiogram 2021 [facility] Antibiogram 2021 From the ICD-10-CM Coding Guidelines, [...] medical record. Respectfully Kannan LA RN CCDS [email or web address] [phone] RVISOR ASSEMBLING * Provider Query - Tamanna Porras NP [...] legs and feet bilaterally and arrives to [facility] for posterior lumbar-thoracic spinal fusion with [...] 2007 Page: 143 Effective with discharges: August [facility]: Cancer Fatigue From the ICD-10-CM Coding Guidelines, [...] medical record. Respectfully Kannan LA RN CCDS [email or web address] [phone] RVISOR ASSEMBLING * Initial Assessments - Saturnino Kennedy RN - 10/04/2024 9:35 AM SUPERVISOR ASSEMBLING CM Initial Assessment Interview Note Information Obtained From: Patient Admission Source: CPAP CAM SC Impression: Patient admitted to [facility] [facility] post operative for T3-5 laminectomy and decompression, arachnoid cyst wall fenestration protocol. Plan Includes: wireless development manager will monitor for post acute discharge needs such as therapy, nursing, medical equipment or agency referrals as indicated by the care team. Primary Source of Transportation: Does the patient need discharge transport arranged?: No If private car is appropriate at discharge, Reginald Delgado [phone] will provide transport at discharge from hospital. Health Insurance Coverage: Medicare A & B, BCBS Federal Prescription Coverage: Yes Pharmacy: [id number] [place], [place] - [address] AT [place] [address]) & [address] [facility] [id number] Primary Care Provider: Sj Benson MD Prior to Admission: Functional Status: Minimal assist with ADLs Primary Caregiver: Spouse (Reginald Thus [phone]) Support System: Spouse/Significant Other, Children Home Care Services: No Outpatient Services: No Durable Medical Equipment: Walker (wheeled) Living Arrangements: Spouse/significant other (Reginald Thus [phone]) Type of Residence: Private residence Steps in [...] car is appropriate at discharge, Reginald Thus [phone] will provide transport at discharge from hospital. [...] Collaboration with Patient, Provider, Direct Care Nurse, Forestry Patrolman, and other members of theHealth Care Team to assure needed interventions completed. 2. Return patient to optimal level of self-care post discharge. 3. Waste Paper Hammermill Operator will follow for Discharge Planning - interventions as needed 4. Anticipated level of care at discharge 5. Planned Discharge Disposition Saturnino Kennedy RN RVISOR ASSEMBLING * Plan of Care - Eric Valdez [...] and optimal renal function maintained Outcome: Ongoing RVISOR ASSEMBLING * Perioperative Nursing Note - Alida Larry RN - 10/03/2024 11:[address] Martínez with neuro on-call updated with [...] Pt updated on patient and boarding status RVISOR ASSEMBLING RVISOR ASSEMBLING RVISOR ASSEMBLING * Perioperative Nursing Note - Alida Larry RN - 10/03/2024 10:[address] Wayne at bedside to evaluate arterial line RVISOR ASSEMBLING * Perioperative Nursing Note - Alida Larry RN - 10/03/2024 9:35 AM SUPERVISOR ASSEMBLING Neuro pager team contacted regarding continued MAP issues. Orders received. RVISOR ASSEMBLING * Perioperative Nursing Note - Alida Larry RN - 10/03/2024 8:42 AM SUPERVISOR ASSEMBLING Patient repositioned. Armboard placed to attempt to maintain arterial BP. Line quite positional andvaries with non-invasive pressure. RVISOR ASSEMBLING * Perioperative Nursing Note - Meliza Koch RN - 10/03/2024 5:26 AM CST Mr. Delgado slept soundly through the night, but was A&O x 4 on waking. His military technology manager were 5/5 bilaterally. His plantar flexion improved throughout the night. From 2200 to 0600, his plantar flexion LLE went from 3+/5+ to 5+/5+, and his RLE went from 1+/5+ to 2-3+/5+. His dorsiflexion LLE went from 3+/5+ to 5+/5+, and his RLE remained weak at 1+/5+. Phenylephrine was as high as 0.9mcg/kg/min to sustain MAP goal of >110. RVISOR ASSEMBLING * Brief Op Note - Wild Perez MD - 10/02/2024 3:26 PM CST Operative Progress Note Surgical Team: Surgeons and Role: * James Robles MD - Primary * Wild Perez MD - Resident - Assisting * Meghan Major DO - Fellow Anesthesiologist: Marimar Carr MD PhD Mumps Developer: Vance Morales MD Hydraulic Press Tender: Timo Bonilla RN Hydraulic Press Tender Relief: Gabriela Sullivan RN Scrub Relief: Rae Starr RN Scrub: Joyce Zhou RN Commercial Painter: Dejan Velásquez [facility] Scrub: May Carroll RN DATE OF SURGERY [...] James Robles MD at 10/03/2024 8:13 AM SUPERVISOR ASSEMBLING RVISOR ASSEMBLING RVISOR ASSEMBLING * Op Note - James Robles MD - 10/02/2024 9:18 AM CST Surgeon: James Robles MD Melt House Supervisor: Satish Major DO Preoperative diagnosis: Dorsal arachnoid [...] all critical components of the procedure as sales assistant entertainment and media and participated specifically with the revision laminectomy and intradural arachnoid web/cystic incision and lysis of adhesions. Please note that her expert assistance was necessary given the lack of availability of a qualified resident. RVISOR ASSEMBLING documented in this encounter Plan of Treatment Pending Results Name Type Priority Associated Diagnoses Date /Time Hepatic function panel Lab Routine 8:12 PM SUPERVISOR ASSEMBLING Scheduled Orders Name Type Priority Associated Diagnoses Order Schedule Surgical pathology Pathology and Cytology Routine Thoracic myelopathy Release Upon Ordering for 1 Occurrences starting 10/02/2024 Hepatic function panel Lab Routine Once for 1 Occurrences starting 10/13/2024 until 10/13/2024 documented as of this encounter Procedures Procedure Name Priority Date/Time Associated Diagnosis Comments EGFR Routine 10/13/2024 8:12 PM SUPERVISOR ASSEMBLING PROTIME-INR STAT 10/13/2024 8:12 PM SUPERVISOR ASSEMBLING CBC WITHOUT DIFFERENTIAL Routine 10/13/2024 8:12 PM SUPERVISOR ASSEMBLING HEPATIC FUNCTION PANEL Routine 8:12 PM SUPERVISOR ASSEMBLING BASIC METABOLIC PANEL Routine 10/13/2024 8:12 PM SUPERVISOR ASSEMBLING PEP THERAPY Routine 10/13/2024 12:00 PM SUPERVISOR ASSEMBLING US VEIN DUPLEX LOWER EXTREMITY BILATERAL COMPLETE IP Routine 10/13/2024 9:43 AM SUPERVISOR ASSEMBLING APTT STAT 10/13/2024 6:24 AM SUPERVISOR ASSEMBLING PEP THERAPY Routine 10/13/2024 6:01 AM SUPERVISOR ASSEMBLING EGFR Routine 10/12/2024 9:40 PM SUPERVISOR ASSEMBLING APTT Routine 10/12/2024 9:40 PM SUPERVISOR ASSEMBLING CBC WITHOUT DIFFERENTIAL Routine 10/12/2024 9:40 PM SUPERVISOR ASSEMBLING BASIC METABOLIC PANEL Routine 10/12/2024 9:40 PM SUPERVISOR ASSEMBLING PEP THERAPY Routine 10/12/2024 6:00 PM SUPERVISOR ASSEMBLING PEP THERAPY Routine 10/12/2024 12:00 PM SUPERVISOR ASSEMBLING APTT STAT 10/12/2024 6:21 AM SUPERVISOR ASSEMBLING PEP THERAPY Routine 10/12/2024 6:01 AM SUPERVISOR ASSEMBLING APTT STAT 10/12/2024 12:54 AM SUPERVISOR ASSEMBLING EGFR Routine 10/11/2024 9:52 PM SUPERVISOR ASSEMBLING CBC WITHOUT DIFFERENTIAL Routine 10/11/2024 9:52 PM SUPERVISOR ASSEMBLING BASIC METABOLIC PANEL Routine 10/11/2024 9:52 PM SUPERVISOR ASSEMBLING PEP THERAPY Routine 10/11/2024 6:00 PM SUPERVISOR ASSEMBLING APTT STAT 10/11/2024 5:30 PM SUPERVISOR ASSEMBLING PEP THERAPY Routine 10/11/2024 12:00 PM SUPERVISOR ASSEMBLING PEP THERAPY Routine 10/11/2024 6:01 AM SUPERVISOR ASSEMBLING PEP THERAPY Routine 10/11/2024 12:00 AM SUPERVISOR ASSEMBLING EGFR Routine 10/10/2024 8:04 PM SUPERVISOR ASSEMBLING APTT STAT 10/10/2024 8:04 PM SUPERVISOR ASSEMBLING APTT STAT 10/10/2024 8:04 PM SUPERVISOR ASSEMBLING PROTIME-INR STAT 10/10/2024 8:04 PM SUPERVISOR ASSEMBLING CBC WITHOUT DIFFERENTIAL Routine 10/10/2024 8:04 PM SUPERVISOR ASSEMBLING BASIC METABOLIC PANEL Routine 10/10/2024 8:04 PM SUPERVISOR ASSEMBLING PEP THERAPY Routine 10/10/2024 12:00 PM SUPERVISOR ASSEMBLING CBC WITHOUT DIFFERENTIAL STAT 10/10/2024 11:51 AM SUPERVISOR ASSEMBLING APTT STAT 10/10/2024 11:36 AM SUPERVISOR ASSEMBLING PROTIME-INR STAT 10/10/2024 11:36 AM SUPERVISOR ASSEMBLING PEP THERAPY Routine 10/10/2024 6:01 AM SUPERVISOR ASSEMBLING EGFR Routine 10/10/2024 3:19 AM SUPERVISOR ASSEMBLING CBC WITHOUT DIFFERENTIAL Routine 10/10/2024 3:19 AM SUPERVISOR ASSEMBLING BASIC METABOLIC PANEL Routine 10/10/2024 3:19 AM SUPERVISOR ASSEMBLING PEP THERAPY Routine 10/10/2024 12:00 AM SUPERVISOR ASSEMBLING POCT GLUCOSE DEVICE Routine 10/09/2024 8 :41 PM SUPERVISOR ASSEMBLING PEP THERAPY Routine 10/09/2024 6:00 PM SUPERVISOR ASSEMBLING US VEIN DUPLEX LOWER EXTREMITY BILATERAL COMPLETE ED Urgent/IP Urgent 10/09/2024 10:08 AM SUPERVISOR ASSEMBLING XR CHEST 1 VIEW IP Routine 10/09/2024 7:55 AM SUPERVISOR ASSEMBLING PEP THERAPY Routine 10/09/2024 6:01 AM SUPERVISOR ASSEMBLING PEP THERAPY Routine 10/09/2024 12:00 AM SUPERVISOR ASSEMBLING EGFR Timed 10/08/2024 10:15 PM SUPERVISOR ASSEMBLING CBC WITHOUT DIFFERENTIAL Routine 10/08/2024 10:15 PM SUPERVISOR ASSEMBLING PHOSPHORUS Timed 10/08/2024 10:15 PM SUPERVISOR ASSEMBLING MAGNESIUM Timed 10/08/2024 10:15 PM SUPERVISOR ASSEMBLING COMPREHENSIVE METABOLIC PANEL Timed 10/08/2024 10:15 PM SUPERVISOR ASSEMBLING PEP THERAPY Routine 10/08/2024 6:00 PM SUPERVISOR ASSEMBLING PEP THERAPY Routine 10/08/2024 12:00 PM SUPERVISOR ASSEMBLING TROPONIN I HIGH-SENSITIVITY STAT 10/08/2024 11:36 AM SUPERVISOR ASSEMBLING LACTATE Timed 10/08/2024 8:38 AM SUPERVISOR ASSEMBLING PEP THERAPY Routine 10/08/2024 6:00 AM SUPERVISOR ASSEMBLING EGFR Routine 10/07/2024 10:19 PM SUPERVISOR ASSEMBLING CBC WITHOUT DIFFERENTIAL Routine 10/07/2024 10:19 PM SUPERVISOR ASSEMBLING BASIC METABOLIC PANEL Routine 10/07/2024 10:19 PM SUPERVISOR ASSEMBLING LACTATE, WHOLE BLOOD Timed 10/07/2024 9:09 AM SUPERVISOR ASSEMBLING URINALYSIS AND REFLEX TO MICROSCOPIC AND CULTURE Routine 10/07/2024 5:37 AM SUPERVISOR ASSEMBLING BLOOD CULTURE STAT 10/07/2024 5:37 AM SUPERVISOR ASSEMBLING BLOOD CULTURE STAT 10/07/2024 5:37 AM SUPERVISOR ASSEMBLING URINALYSIS, MICROSCOPIC ONLY Routine 10/07/2024 5:37 AM SUPERVISOR ASSEMBLING XR CHEST 1 VIEW IP Routine 10/07/2024 5:18 AM SUPERVISOR ASSEMBLING PEP THERAPY Routine 10/07/2024 12:00 AM SUPERVISOR ASSEMBLING LACTATE, WHOLE BLOOD Routine 10/06/2024 9:30 PM SUPERVISOR ASSEMBLING EGFR Routine 10/06/2024 9:16 PM SUPERVISOR ASSEMBLING CBC WITHOUT DIFFERENTIAL Routine 10/06/2024 9:16 PM SUPERVISOR ASSEMBLING BASIC METABOLIC PANEL Routine 10/06/2024 9:16 PM SUPERVISOR ASSEMBLING PEP THERAPY Routine 10/06/2024 6:00 PM SUPERVISOR ASSEMBLING PEP THERAPY Routine 10/06/2024 12:00 PM SUPERVISOR ASSEMBLING PEP THERAPY Routine 10/06/2024 6:01 AM SUPERVISOR ASSEMBLING EGFR Routine 10/05/2024 10:43 PM SUPERVISOR ASSEMBLING LACTATE, WHOLE BLOOD Routine 10/05/2024 10:43 PM SUPERVISOR ASSEMBLING CBC WITHOUT DIFFERENTIAL Routine 10/05/2024 10:43 PM SUPERVISOR ASSEMBLING BASIC METABOLIC PANEL Routine 10/05/2024 10:43 PM SUPERVISOR ASSEMBLING PEP THERAPY Routine 10/05/2024 6:12 PM SUPERVISOR ASSEMBLING PEP THERAPY Routine 10/05/2024 6:12 PM SUPERVISOR ASSEMBLING TROPONIN I HIGH-SENSITIVITY Routine 10/04/2024 8:49 PM SUPERVISOR ASSEMBLING CALCIUM,IONIZED, WHOLE BLOOD Routine 10/04/2024 8:49 PM SUPERVISOR ASSEMBLING EGFR Routine 10/04/2024 8:49 PM SUPERVISOR ASSEMBLING DIFFERENTIAL AUTO Routine 10/04/2024 8:4 9 PM SUPERVISOR ASSEMBLING CBC WITH AUTO DIFFERENTIAL Routine 10/04/2024 8:49 PM SUPERVISOR ASSEMBLING LACTATE, WHOLE BLOOD Routine 10/04/2024 8:49 PM SUPERVISOR ASSEMBLING BASIC METABOLIC PANEL Routine 10/04/2024 8:49 PM SUPERVISOR ASSEMBLING URINALYSIS AND REFLEX TO MICROSCOPIC AND CULTURE STAT 10/04/2024 1:30 PM SUPERVISOR ASSEMBLING URINALYSIS, MICROSCOPIC ONLY STAT 10/04/2024 1:30 PM SUPERVISOR ASSEMBLING LACTATE, WHOLE BLOOD STAT 10/04/2024 12:12 PM SUPERVISOR ASSEMBLING TROPONIN I HIGH-SENSITIVITY 2-HOUR Timed 10/04/2024 12:06 PM SUPERVISOR ASSEMBLING INFLUENZA A/B, RSV, AND COVID-19 PCR Routine 10/04/2024 9:06 AM SUPERVISOR ASSEMBLING TROPONIN I HIGH-SENSITIVITY SERIES (BASELINE, 2HR, 4HR, 6HR) Routine 10/04/2024 9:06 AM SUPERVISOR ASSEMBLING LACTATE STAT 10/04/2024 9:06 AM SUPERVISOR ASSEMBLING CRITICAL RESULT CALLBACK CHEMISTRY STAT 10/04/2024 9:06 AM SUPERVISOR ASSEMBLING EGFR Routine 10/03/2024 10:36 PM SUPERVISOR ASSEMBLING BASIC METABOLIC PANEL Routine 10/03/2024 10:36 PM SUPERVISOR ASSEMBLING DIFFERENTIAL AUTO Routine 10/03/2024 8:3 0 PM SUPERVISOR ASSEMBLING CBC WITH AUTO DIFFERENTIAL Routine 10/03/2024 8:30 PM SUPERVISOR ASSEMBLING EGFR STAT 10/03/2024 8:25 PM SUPERVISOR ASSEMBLING BASIC METABOLIC PANEL STAT 10/03/2024 8:25 PM SUPERVISOR ASSEMBLING ECG 12-LEAD Routine 10/03/2024 2:19 PM SUPERVISOR ASSEMBLING POCT GLUCOSE DEVICE Routine 10/03/2024 2 :07 PM SUPERVISOR ASSEMBLING EGFR Routine 10/03/2024 4:58 AM SUPERVISOR ASSEMBLING DIFFERENTIAL AUTO Routine 10/03/2024 4:5 8 AM SUPERVISOR ASSEMBLING CBC WITH AUTO DIFFERENTIAL Routine 10/03/2024 4:58 AM SUPERVISOR ASSEMBLING BASIC METABOLIC PANEL Routine 10/03/2024 4:58 AM SUPERVISOR ASSEMBLING XR CHEST 1 VIEW IP Routine 10/02/2024 9:08 PM SUPERVISOR ASSEMBLING EGFR STAT 10/02/2024 4:01 PM SUPERVISOR ASSEMBLING DIFFERENTIAL AUTO STAT 10/02/2024 4:0 1 PM SUPERVISOR ASSEMBLING CBC WITH AUTO DIFFERENTIAL STAT 10/02/2024 4:01 PM SUPERVISOR ASSEMBLING APTT STAT 10/02/2024 4:01 PM SUPERVISOR ASSEMBLING PROTIME-INR STAT 10/02/2024 4:01 PM SUPERVISOR ASSEMBLING PHOSPHORUS STAT 10/02/2024 4:01 PM SUPERVISOR ASSEMBLING MAGNESIUM STAT 10/02/2024 4:01 PM SUPERVISOR ASSEMBLING COMPREHENSIVE METABOLIC PANEL STAT 10/02/2024 4:01 PM SUPERVISOR ASSEMBLING POC BLOOD GAS AND CHEMISTRIES, ARTERIAL Routine 10/02/2024 2:30 PM SUPERVISOR ASSEMBLING FL FLUOROSCOPY < 1 HOUR IP Routine 10/02/2024 2:00 PM SUPERVISOR ASSEMBLING POC BLOOD GAS AND CHEMISTRIES, ARTERIAL Routine 10/02/2024 10:43 AM SUPERVISOR ASSEMBLING SPINAL CORD MONITORING 7:29 AM SUPERVISOR ASSEMBLING Thoracic myelopathy Case Notes [email or web address] Celine via email add Dr. David HEBERT LAMINECTOMY THORACIC DECOMPRESSION 10/02/2024 7:29 AM SUPERVISOR ASSEMBLING Thoracic myelopathy Case Notes [email or web address] Celine via email add Dr. David HEBERT FUSION SPINAL - POSTERIOR LUMBAR/THORACIC WITH INSTRUMENTATION 10/02/2024 7:29 AM SUPERVISOR ASSEMBLING Thoracic myelopathy Case Notes [email or web address] Celine via email add Dr. David HEBERT TYPE AND SCREEN STAT 10/02/2024 6:18 AM SUPERVISOR ASSEMBLING documented in this encounter Results * (ABNORMAL) Hepatic function panel (10/13/2024 8:12 PM SUPERVISOR ASSEMBLING) Bilirubin, total 0.2 0.1 - 1.2 mg/dL Bilirubin, direct <0.2 0.1 - 0.3 mg/dL [facility] Protein, pl 5.8(L) 6.5 - 8.5 g/dL [facility] Albumin 3.4(L) 3.5 - 5.0 g/dL [facility] Alk phos 59 40 - 130 Units/L [facility] ALT 28 7 - 55 Units/L [facility] AST 26 10 - 50 Units/L [facility] Comment:Hemolyzed; result ma y be falsely elevated Blood 10/13/2024 8:12 PM SUPERVISOR ASSEMBLING 10/13/2024 8:23 PM SUPERVISOR ASSEMBLING us James Robles MD LAB BLOOD ORDERABLES Final Resu lt [facility] [place] [address] * eGFR (10/13/2024 8:12 PM SUPERVISOR ASSEMBLING) eGFR 60 >=60 mL/min/1. 73 m2 Comment: [...] last reviewed 2021. Blood 10/13/2024 8:12 PM SUPERVISOR ASSEMBLING 10/13/2024 8:37 PM SUPERVISOR ASSEMBLING James Robles MD LAB BLOOD ORDERABLES Final Resu lt Performing Organization Address [facility] de Phone Number [facility] [place] [address] * Protime-INR (10/13/2024 8:12 PM SUPERVISOR ASSEMBLING) PT 11.5 9.7 - 13.0 sec INR 1.06 0.90 - 1.20 [facility] Comment: Interpretive data Oral anticoagulant therapeutic ranges: Venous thromboembolism prophylaxis or treatment: 2.0-3.0 CARDIOLOGY Standard range: 2.0-3.0 High-intensity range: 2.5-3.5 Refer to indication-specific guidelines for appropriate target ranges for prosthetic heart valve replacement. Current interpretive data was last revised on 2019. Blood 10/13/2024 8:12 PM SUPERVISOR ASSEMBLING 10/13/2024 8:32 PM SUPERVISOR ASSEMBLING Narrative [facility] - 10/13/2024 8:38 PM SUPERVISOR ASSEMBLING Baseline prior to apixaban initiation. Result [facility] Meghan Carranza NP LAB BLOOD ORDERABLES Fin al Result Performing Organization Address [facility] de Phone Number [facility] Department [place] [address] * (ABNORMAL) CBC without differential (10/13/2024 8:12 PM SUPERVISOR ASSEMBLING) WBC 17.1(H) 3.8 - 9.9 K/cumm Hgb 12.1(L) 13.0 - 17.5 g/dL [facility] Hct 37.0(L) 38.9 - 50.3 % [facility] Plt 214 150 - 400 K/cumm [facility] MPV 10.1 9.1 - 12.3 fL [facility] RBC 3.76(L) 4.30 - 5.80 M/cumm [facility] MCV 98.4(H) 81.3 - 96.4 fL [facility] MCH 32.2 27.1 - 33.3 pg [facility] MCHC 32.7 32.3 - 35.7 g/dL [facility] RDW CV 14.6 11.1 - 14.9 % [facility] RDW SD 52.2(H) 35.7 - 48.1 fL [facility] NRBC abs 0.00 0.00 - 0.01 K/cumm [facility] Blood 10/13/2024 8:12 PM SUPERVISOR ASSEMBLING 10/13/2024 8:26 PM SUPERVISOR ASSEMBLING Maria Isabel Unger NP LAB BLOOD ORDERABLES Final Result [facility] Department [place] [address] * (ABNORMAL) Basic metabolic panel (10/13/2024 8:12 PM SUPERVISOR ASSEMBLING) Sodium 140 135 - 145 mmol/L Potassium, pl 4.7 3.3 - 4.9 mmol/L [facility] Comment:Hemolyzed; Potassium value may be falsely elevated by as much as 0.3-0.5 mmol/L. Suggest redraw and reanalysis. Chloride 107 97 - 110 mmol/L [facility] CO2 23 22 - 32 mmol/L [facility] Anion gap 10 2 - 15 mmol/L [facility] BUN 26(H) 6 - 25 mg/dL [facility] Creatinine 1.25 0.80 - 1.30 mg/dL [facility] Glucose 96 70 - 199 mg/dL [facility] Comment: Interpretive Data Fasting glucose [...] mg/dL [facility] Blood 10/13/2024 8:12 PM SUPERVISOR ASSEMBLING 10/13/2024 8:23 PM SUPERVISOR ASSEMBLING us James Robles MD LAB BLOOD ORDERABLES Final Resu lt [facility] [place] [address] * US Vein Duplex Lower Extremity Bilateral Complete (10/13/2024 9:43 AM SUPERVISOR ASSEMBLING) Anatomical Region Laterality Modality Vascular Bilateral Ultrasound 10/13/2024 9:05 AM SUPERVISOR ASSEMBLING Narrative 10/13/2024 1:52 PM SUPERVISOR ASSEMBLING [facility] [employer] - Department of Vascular Surgery, Vascular Laboratory [address] [place] [id number] Lower Extremity Venous Ultrasound Report Patient Name: LILI DELGADO F : 1950 (74y ) Study Date: 10/13/2024 9:05:32 AM Gender: M Tech: Location: [id number] Ref Provider: MEGHAN CARRANZA Quality: Adequate Order [...] thrombus size per hematology - FINDINGS: Performing Warehouse Director: Jessica Aguilar RVT. Right: Duplex scan reveals [...] on the above date to Meghan Carranza ADMINISTRATIVE EXECUTIVE at 9:40am. CONCLUSIONS: 1. There is acute [...] Tyshawn Mullins MD FACS 10/13/2024 1:52:11 PM SUPERVISOR ASSEMBLING Procedure Note Tyshawn Mullins MD - 10/13/2024 [facility] [employer] - Department of Vascular Surgery,Vascular Laboratory [address] [place] [address] Lower Extremity Venous Ultrasound Report Patient Name: LILI DELGADO F : 1950 (74y ) Study Date: 10/13/2024 9:05:32 AM Gender: M Tech: SAGAR Location: [id number] Ref Provider: MEGHAN CARRANZA Quality: Adequate Order [...] thrombus size per hematology - FINDINGS: Performing Warehouse Director: Jessica Aguilar RVT. Right: Duplex scan reveals [...] Tyshawn Mullins MD FACS 10/13/2024 1:52:11 PM SUPERVISOR ASSEMBLING us Meghan Carranza NP IMG US PROCEDURES Final Result * (ABNORMAL) aPTT (10/13/2024 6:24 AM SUPERVISOR ASSEMBLING) aPTT 55(H) 28 - 38 sec Comment: Interpretive Data Heparin therapeutic range: 66.0 - 100.0 seconds. Range based on correlation with therapeutic heparin activity range of 0.3 - 0.7 Units/mL. Current interpretive data was last revised on 2023. Blood 10/13/2024 6:24 AM SUPERVISOR ASSEMBLING 10/13/2024 6:52 AM SUPERVISOR ASSEMBLING Narrative [facility] - 10/13/2024 7:17 AM SUPERVISOR ASSEMBLING STAT PTT timing: - Draw 6 hours [...] [facility] [place] [address] * (ABNORMAL) eGFR (10/12/2024 9:40 PM SUPERVISOR ASSEMBLING) eGFR 49(L) >=60 mL/min/1. 73 m2 Comment: [...] last reviewed 2021. Blood 10/12/2024 9:40 PM SUPERVISOR ASSEMBLING 10/12/2024 11:24 PM SUPERVISOR ASSEMBLING James Robles MD LAB BLOOD ORDERABLES Final Resu lt Performing Organization Address [facility] Co de Phone Number [facility] [place] [address] * (ABNORMAL) aPTT (10/12/2024 9:40 PM SUPERVISOR ASSEMBLING) aPTT 57(H) 28 - 38 sec Comment: Interpretive Data Heparin therapeutic range: 66.0 - 100.0 seconds. Range based on correlation with therapeutic heparin activity range of 0.3 - 0.7 Units/mL. Current interpretive data was last revised on 2023. Blood 10/12/2024 9:40 PM SUPERVISOR ASSEMBLING 10/12/2024 11:26 PM SUPERVISOR ASSEMBLING Result [facility] Meghan Carranza ADMINISTRATIVE EXECUTIVE LAB BLOOD ORDERABLES Fin al Result Performing Organization Address [facility] Co de Phone Number [facility] Department [place] [address] * (ABNORMAL) CBC without differential (10/12/2024 9:40 PM SUPERVISOR ASSEMBLING) WBC 13.9(H) 3.8 - 9.9 K/cumm Hgb 11.4(L) 13.0 - 17.5 g/dL [facility] Hct 35.0(L) 38.9 - 50.3 % [facility] Plt 232 150 - 400 K/cumm [facility] MPV 10.5 9.1 - 12.3 fL [facility] RBC 3.59(L) 4.30 - 5.80 M/cumm [facility] MCV 97.5(H) 81.3 - 96.4 fL [facility] MCH 31.8 27.1 - 33.3 pg [facility] MCHC 32.6 32.3 - 35.7 g/dL [facility] RDW CV 14.6 11.1 - 14.9 % [facility] RDW SD 51.2(H) 35.7 - 48.1 fL [facility] NRBC abs 0.00 0.00 - 0.01 K/cumm [facility] Blood 10/12/2024 9:40 PM SUPERVISOR ASSEMBLING 10/12/2024 11:24 PM SUPERVISOR ASSEMBLING Maria Isabel Unger NP LAB BLOOD ORDERABLES Final Result [facility] Department [place] [address] * (ABNORMAL) Basic metabolic panel (10/12/2024 9:40 PM SUPERVISOR ASSEMBLING) Sodium 144 135 - 145 mmol/L Potassium, pl 4.4 3.3 - 4.9 mmol/L [facility] Chloride 109 97 - 110 mmol/L [facility] CO2 27 22 - 32 mmol/L [facility] Anion gap 8 2 - 15 mmol/L [facility] BUN 28(H) 6 - 25 mg/dL [facility] Creatinine 1.48(H) 0.80 - 1.30 mg/dL [facility] Glucose 110 70 - 199 mg/dL [facility] Comment: Interpretive Data Fasting glucose [...] 2022. Calcium 8.4(L) 8.5 - 10.3 mg/dL [facility] Blood 10/12/2024 9:40 PM SUPERVISOR ASSEMBLING 10/12/2024 11:24 PM SUPERVISOR ASSEMBLING James Robles MD LAB BLOOD ORDERABLES Final Resu lt Performing Organization Address [facility] Co de Phone Number [facility] [place] [address] * (ABNORMAL) aPTT (10/12/2024 6:21 AM SUPERVISOR ASSEMBLING) [facility] aPTT 51(H) 28 - 38 sec Comment: Interpretive Data Heparin therapeutic range: 66.0 - 100.0 seconds. Range based on correlation with therapeutic heparin activity range of 0.3 - 0.7 Units/mL. Current interpretive data was last revised on 2023. Blood 10/12/2024 6:21 AM SUPERVISOR ASSEMBLING 10/12/2024 6:49 AM SUPERVISOR ASSEMBLING Narrative [facility] - 10/12/2024 6:56 AM SUPERVISOR ASSEMBLING STAT PTT timing: - Draw 6 hours [...] ORDERABLES Final Resu lt Performing Organization Address [facility]/ZIP Co de Phone Number [facility] [place] [address] * (ABNORMAL) aPTT (10/12/2024 12:54 AM SUPERVISOR ASSEMBLING) Pathologist [facility] aPTT 51(H) 28 - 38 sec Comment: Interpretive Data Heparin therapeutic range: 66.0 - 100.0 seconds. Range based on correlation with therapeutic heparin activity range of 0.3 - 0.7 Units/mL. Current interpretive data was last revised on 2023. Blood 10/12/2024 12:5 4 AM SUPERVISOR ASSEMBLING 10/12/2024 1:09 AM SUPERVISOR ASSEMBLING Narrative [facility] - 10/12/2024 1:17 AM SUPERVISOR ASSEMBLING STAT PTT timing: - Draw 6 hours [...] [facility] [place] [address] * (ABNORMAL) eGFR (10/11/2024 9:52 PM SUPERVISOR ASSEMBLING) Pathologist [facility] eGFR 42(L) >=60 mL/min/1. 73 m2 Comment: [...] last reviewed 2021. Blood 10/11/2024 9:52 PM SUPERVISOR ASSEMBLING 10/11/2024 11:34 PM SUPERVISOR ASSEMBLING us James Robles MD LAB BLOOD ORDERABLES Final Resu lt [facility] [place] [address] * (ABNORMAL) CBC without differential (10/11/2024 9:52 PM SUPERVISOR ASSEMBLING) WBC 15.3(H) 3.8 - 9.9 K/cumm Hgb 10.9(L) 13.0 - 17.5 g/dL [facility] Hct 33.4(L) 38.9 - 50.3 % [facility] Plt 234 150 - 400 K/cumm [facility] MPV 10.4 9.1 - 12.3 fL [facility] RBC 3.47(L) 4.30 - 5.80 M/cumm [facility] MCV 96.3 81.3 - 96.4 fL [facility] MCH 31.4 27.1 - 33.3 pg [facility] MCHC 32.6 32.3 - 35.7 g/dL [facility] RDW CV 14.3 11.1 - 14.9 % [facility] RDW SD 49.6(H) 35.7 - 48.1 fL [facility] NRBC abs 0.00 0.00 - 0.01 K/cumm [facility] Blood 10/11/2024 9:52 PM SUPERVISOR ASSEMBLING 10/11/2024 11:34 PM SUPERVISOR ASSEMBLING us Maria Isabel Unger NP LAB BLOOD ORDERABLES Final Result Performing Organization Address City/[facility]/ZIP Co de Phone Number [facility] [place] [address] * (ABNORMAL) Basic metabolic panel (10/11/2024 9:52 PM SUPERVISOR ASSEMBLING) Sodium 141 135 - 145 mmol/L Potassium, pl 4.6 3.3 - 4.9 mmol/L [facility] Chloride 107 97 - 110 mmol/L [facility] CO2 27 22 - 32 mmol/L [facility] Anion gap 7 2 - 15 mmol/L [facility] BUN 35(H) 6 - 25 mg/dL [facility] Creatinine 1.68(H) 0.80 - 1.30 mg/dL [facility] Glucose 115 70 - 199 mg/dL [facility] Comment: Interpretive Data Fasting glucose [...] 2022. Calcium 8.1(L) 8.5 - 10.3 mg/dL [facility] Blood 10/11/2024 9:52 PM SUPERVISOR ASSEMBLING 10/11/2024 11:34 PM SUPERVISOR ASSEMBLING James Robles MD LAB BLOOD ORDERABLES Final Resu lt Performing Organization Address City/[facility] de Phone Number [facility] [place] [address] * aPTT (10/11/2024 5:30 PM SUPERVISOR ASSEMBLING) [facility] aPTT 33 28 - 38 sec Comment: Interpretive Data Heparin therapeutic range: 66.0 - 100.0 seconds. Range based on correlation with therapeutic heparin activity range of 0.3 - 0.7 Units/mL. Current interpretive data was last revised on 2023. Blood 10/11/2024 5:30 PM [employer] 10/11/2024 5:59 PM [employer]PERVISOR [employer] Narrative [facility] - 10/11/2024 6:07 PM [employer]PERVISOR [employer]SEM[employer] STAT PTT timing: - Draw 6 hours [...] ORDERABLES Final Resu lt Performing Organization Address [facility] Co de Phone Number [facility] Department [place] [address] * (ABNORMAL) eGFR (10/10/2024 8:04 PM [employer]PERVISOR [employer]SEM[employer]) [facility] eGFR 45(L) >=60 mL/min/1. 73 m2 [...] last reviewed 2021. Blood 10/10/2024 8:04 PM [employer] 10/10/2024 8:34 PM [employer] James Robles MD LAB BLOOD ORDERABLES Final Resu lt Performing Organization Address City/[facility] Co de Phone Number [facility] Department [place] [address] * (ABNORMAL) aPTT (10/10/2024 8:04 PM [employer]PERVISOR [employer]SEM[employer]) aPTT 22(L) 28 - 38 sec Comment: Interpretive Data Heparin therapeutic range: 66.0 - 100.0 seconds. Range based on correlation with therapeutic heparin activity range of 0.3 - 0.7 Units/mL. Current interpretive data was last revised on 2023. Blood 10/10/2024 8:04 PM [employer] 10/10/2024 8:24 PM [employer]PER[employer]OR [employer] James Robles MD LAB BLOOD ORDERABLES Final Resu lt [facility] [place] [address] * Protime-INR (10/10/2024 8:04 PM [employer]PERVISOR [employer]) PT 12.0 9.7 - 13.0 sec INR 1.11 0.90 - 1.20 [facility] Comment: Interpretive data Oral anticoagulant therapeutic ranges: Venous thromboembolism prophylaxis or treatment: 2.0-3.0 CARDIOLOGY Standard range: 2.0-3.0 High-intensity range: 2.5-3.5 Refer to indication-specific guidelines for appropriate target ranges for prosthetic heart valve replacement. Current interpretive data was last revised on 2019. Blood 10/10/2024 8:04 PM SUPERVISOR ASSEMBLING 10/10/2024 8:24 PM SUPERVISOR ASSEMBLING us James Robles MD LAB BLOOD ORDERABLES Final Resu lt [facility] One [facility] [place] [address] * (ABNORMAL) aPTT (10/10/2024 8:04 PM SUPERVISOR ASSEMBLING) aPTT 22(L) 28 - 38 sec Comment: Interpretive Data Heparin therapeutic range: 66.0 - 100.0 seconds. Range based on correlation with therapeutic heparin activity range of 0.3 - 0.7 Units/mL. Current interpretive data was last revised on 2023. Blood 10/10/2024 8:04 PM SUPERVISOR ASSEMBLING 10/10/2024 8:24 PM SUPERVISOR ASSEMBLING Narrative [facility] - 10/10/2024 8:33 PM SUPERVISOR ASSEMBLING STAT PTT timing: - Draw 6 hours [...] ORDERABLES Final Resu lt Performing Organization Address [facility]/ZIP Co de Phone Number [facility] Department [place] [address] * (ABNORMAL) CBC without differential (10/10/2024 8:04 PM SUPERVISOR ASSEMBLING) Pathologist [facility] WBC 17.1(H) 3.8 - 9.9 K/cumm Hgb 11.6(L) 13.0 - 17.5 g/dL [facility] Hct 34.3(L) 38.9 - 50.3 % [facility] Plt 260 150 - 400 K/cumm [facility] MPV 10.3 9.1 - 12.3 fL [facility] RBC 3.62(L) 4.30 - 5.80 M/cumm [facility] MCV 94.8 81.3 - 96.4 fL [facility] MCH 32.0 27.1 - 33.3 pg [facility] MCHC 33.8 32.3 - 35.7 g/dL [facility] RDW CV 14.2 11.1 - 14.9 % [facility] RDW SD 48.3(H) 35.7 - 48.1 fL [facility] NRBC abs 0.00 0.00 - 0.01 K/cumm [facility] Blood 10/10/2024 8:04 PM SUPERVISOR ASSEMBLING 10/10/2024 8:34 PM SUPERVISOR ASSEMBLING Maria Isabel Unger NP LAB BLOOD ORDERABLES Final Result Performing Organization Address [facility]/ZIP Co de Phone Number [facility] Department [place] [address] * (ABNORMAL) Basic metabolic panel (10/10/2024 8:04 PM SUPERVISOR ASSEMBLING) Pathologist [facility] Sodium 140 135 - 145 mmol/L Potassium, pl 4.6 3.3 - 4.9 mmol/L [facility] Chloride 105 97 - 110 mmol/L [facility] CO2 24 22 - 32 mmol/L [facility] Anion gap 11 2 - 15 mmol/L [facility] BUN 32(H) 6 - 25 mg/dL [facility] Creatinine 1.59(H) 0.80 - 1.30 mg/dL [facility] Glucose 108 70 - 199 mg/dL [facility] Comment: Interpretive Data Fasting glucose [...] 2022. Calcium 8.4(L) 8.5 - 10.3 mg/dL [facility] Blood 10/10/2024 8:04 PM SUPERVISOR ASSEMBLING 10/10/2024 8:34 PM SUPERVISOR ASSEMBLING us James Robles MD LAB BLOOD ORDERABLES Final Resu lt [facility] One [facility] Department [place] [address] * (ABNORMAL) CBC without differential (10/10/2024 11:51 AM SUPERVISOR ASSEMBLING) [facility] WBC 21.0(H) 3.8 - 9.9 K/cumm Hgb 12.0(L) 13.0 - 17.5 g/dL [facility] Hct 36.7(L) 38.9 - 50.3 % [facility] Plt 272 150 - 400 K/cumm [facility] MPV 10.4 9.1 - 12.3 fL [facility] RBC 3.84(L) 4.30 - 5.80 M/cumm [facility] MCV 95.6 81.3 - 96.4 fL [facility] MCH 31.3 27.1 - 33.3 pg [facility] MCHC 32.7 32.3 - 35.7 g/dL [facility] RDW CV 14.0 11.1 - 14.9 % [facility] RDW SD 47.8 35.7 - 48.1 fL [facility] NRBC abs 0.00 0.00 - 0.01 K/cumm [facility] Blood 10/10/2024 11:5 1 AM SUPERVISOR ASSEMBLING 10/10/2024 12:26 PM SUPERVISOR ASSEMBLING Narrative [facility] - 10/10/2024 12:37 PM SUPERVISOR ASSEMBLING Baseline prior to heparin initiation James Robles MD LAB BLOOD ORDERABLES Final Resu lt Performing Organization Address [facility] Co de Phone Number [facility] [place] [address] * (ABNORMAL) aPTT (10/10/2024 11:36 AM SUPERVISOR ASSEMBLING) aPTT 23(L) 28 - 38 sec Comment: Interpretive Data Heparin therapeutic range: 66.0 - 100.0 seconds. Range based on correlation with therapeutic heparin activity range of 0.3 - 0.7 Units/mL. Current interpretive data was last revised on 2023. Blood 10/10/2024 11:3 6 AM SUPERVISOR ASSEMBLING 10/10/2024 11:47 AM SUPERVISOR ASSEMBLING Narrative [facility] - 10/10/2024 12:16 PM SUPERVISOR ASSEMBLING Baseline prior to heparin initiation James Robles MD LAB BLOOD ORDERABLES Final Resu lt Performing Organization Address City/[facility]/ZIP Co de Phone [place] [address] * Protime-INR (10/10/2024 11:36 AM SUPERVISOR ASSEMBLING) PT 11.3 9.7 - 13.0 sec INR 1.05 0.90 - 1.20 [facility] Comment: Interpretive data Oral anticoagulant therapeutic ranges: Venous thromboembolism prophylaxis or treatment: 2.0-3.0 CARDIOLOGY Standard range: 2.0-3.0 High-intensity range: 2.5-3.5 Refer to indication-specific guidelines for appropriate target ranges for prosthetic heart valve replacement. Current interpretive data was last revised on 2019. Blood 10/10/2024 11:3 6 AM SUPERVISOR ASSEMBLING 10/10/2024 11:47 AM SUPERVISOR ASSEMBLING Narrative [facility] - 10/10/2024 12:16 PM SUPERVISOR ASSEMBLING Baseline prior to heparin initiation us James Robles MD LAB BLOOD ORDERABLES Final Resu lt [facility] One [facility] Department [place] [address] * (ABNORMAL) eGFR (10/10/2024 3:19 AM SUPERVISOR ASSEMBLING) eGFR 53(L) >=60 mL/min/1. 73 m2 Comment: [...] last reviewed 2021. Blood 10/10/2024 3:19 AM SUPERVISOR ASSEMBLING 10/10/2024 5:57 AM SUPERVISOR ASSEMBLING James Robles MD LAB BLOOD ORDERABLES Final Resu lt [facility] [place] [address] * (ABNORMAL) CBC without differential (10/10/2024 3:19 AM SUPERVISOR ASSEMBLING) WBC 18.6(H) 3.8 - 9.9 K/cumm Hgb 11.7(L) 13.0 - 17.5 g/dL [facility] Hct 35.3(L) 38.9 - 50.3 % [facility] Plt 234 150 - 400 K/cumm [facility] MPV 10.4 9.1 - 12.3 fL [facility] RBC 3.69(L) 4.30 - 5.80 M/cumm [facility] MCV 95.7 81.3 - 96.4 fL [facility] MCH 31.7 27.1 - 33.3 pg [facility] MCHC 33.1 32.3 - 35.7 g/dL [facility] RDW CV 14.1 11.1 - 14.9 % [facility] RDW SD 48.1 35.7 - 48.1 fL [facility] NRBC abs 0.00 0.00 - 0.01 K/cumm [facility] Blood 10/10/2024 3:19 AM SUPERVISOR ASSEMBLING 10/10/2024 6:01 AM SUPERVISOR ASSEMBLING us Maria Isabel Unger NP LAB BLOOD ORDERABLES Final Result Performing Organization Address City/[facility]/ZIP Co de Phone Number [facility] Department [place] [address] * (ABNORMAL) Basic metabolic panel (10/10/2024 3:19 AM SUPERVISOR ASSEMBLING) Sodium 141 135 - 145 mmol/L Potassium, pl 4.2 3.3 - 4.9 mmol/L [facility] Chloride 106 97 - 110 mmol/L [facility] CO2 27 22 - 32 mmol/L [facility] Anion gap 8 2 - 15 mmol/L [facility] BUN 34(H) 6 - 25 mg/dL [facility] Creatinine 1.38(H) 0.80 - 1.30 mg/dL [facility] Glucose 95 70 - 199 mg/dL [facility] Comment: Interpretive Data Fasting glucose [...] 2022. Calcium 8.5 8.5 - 10.3 mg/dL [facility] Blood 10/10/2024 3:19 AM SUPERVISOR ASSEMBLING 10/10/2024 5:57 AM SUPERVISOR ASSEMBLING us James Robles MD LAB BLOOD ORDERABLES Final Resu lt [facility] One [facility] Department [place] [address] * POCT glucose (10/09/2024 8:41 PM SUPERVISOR ASSEMBLING) Glucose, POC 141 70 - 199 mg/dL Blood 10/09/2024 8:41 PM SUPERVISOR ASSEMBLING 10/09/2024 8:41 PM SUPERVISOR ASSEMBLING James Robles MD LAB POCT ORDERABLES - DEVICE Fi nal Result [facility] Department [place] [address] * US Vein Duplex Lower Extremity Bilateral Complete (10/09/2024 10:08 AM SUPERVISOR ASSEMBLING) Anatomical Region Laterality Modality Vascular Bilateral Ultrasound 10/09/2024 9:49 AM SUPERVISOR ASSEMBLING Narrative 10/09/2024 11:51 AM SUPERVISOR ASSEMBLING [facility] - Department of Vascular Surgery, Vascular Laboratory [address] [place] [id number] Lower Extremity Venous Ultrasound Report Patient Name: LILI DELGADO F : 1950 (74y ) Study Date: 10/09/2024 9:49:45 AM Gender: M Tech: AL Location: [id number] Ref Provider: OSIRIS GUILLEN ?Quality: Adequate Order [...] Pain in Leg, Right - FINDINGS: Performing Warehouse Director: Niurka Krishna RVT. Right: Duplex scan reveals [...] above. Electronically Signed By: Tyshawn Mullins MD [facility] 2024-10-09 11:50:17 SUPERVISOR ASSEMBLING Procedure Note Tyshawn Mullins MD - 10/09/2024 [facility] - Department of Vascular Surgery,Vascular Laboratory [address] [place] [address] Lower Extremity Venous Ultrasound Report Patient Name: LILI DELGADO F : 1950 (74y ) Study Date: 10/09/2024 9:49:45 AM Gender: M Tech: AL Location: [id number] Ref Provider: OSIRIS GUILLEN Quality: Adequate Order [...] Pain in Leg, Right - FINDINGS: Performing Warehouse Director: Niurka Krishna RVT. Right: Duplex scan reveals [...] Results called on the above date to Oisris Guillen NP at 10:06 am. CONCLUSIONS: 1. [...] above. Electronically Signed By: Tyshawn Mullins MD [facility] 2024-10-09 11:50:17 SUPERVISOR ASSEMBLING us Osiris Guillen NP IMG US PROCEDURES Final Result * XR Chest 1 View (10/09/2024 7:55 AM SUPERVISOR ASSEMBLING) Anatomical Region Laterality Modality Body, Chest N/A Digital Radiogra phy 10/09/2024 1:25 PM SUPERVISOR ASSEMBLING Impressions 10/09/2024 4:11 PM SUPERVISOR ASSEMBLING 1. ??Interval increase in left lung base atelectasis. Dictated by: Gabriel Warner M.D. The radiology attending physician has personally reviewed this study, and had reviewed and/or edited this written report and agrees with it. Electronically signed by: Austin Olsen M.D. Narrative 10/09/2024 4:11 PM SUPERVISOR ASSEMBLING EXAMINATION: 1 view chest radiograph History: 74-year-old [...] signed by: Austin Olsen M.D. Osiris Guillen ADMINISTRATIVE EXECUTIVE IMG XR PROCEDURES Final Result * (ABNORMAL) eGFR (10/08/2024 10:15 PM SUPERVISOR ASSEMBLING) eGFR 55(L) >=60 mL/min/1. 73 m2 Comment: [...] reviewed 2021. Blood 10/08/2024 10:1 5 PM SUPERVISOR ASSEMBLING 10/08/2024 11:56 PM SUPERVISOR ASSEMBLING Brianna Martínez ADMINISTRATIVE EXECUTIVE LAB BLOOD ORDERABLES Cammy l Result Performing Organization Address City/[facility]/ZIP Co de Phone [place] [address] * Phosphorus (10/08/2024 10:15 PM SUPERVISOR ASSEMBLING) Pathologist [facility] Phosphorus, pl 3.1 2.3 - 4.5 mg/dL Blood 10/08/2024 10:1 5 PM SUPERVISOR ASSEMBLING 10/08/2024 11:56 PM SUPERVISOR ASSEMBLING Brianna Martínez ADMINISTRATIVE EXECUTIVE LAB BLOOD ORDERABLES Cammy l Result Performing Organization Address [facility] [place] [address] * Magnesium (10/08/2024 10:15 PM SUPERVISOR ASSEMBLING) [facility] Magnesium 2.3 1.4 - 2.5 mg/dL Blood 10/08/2024 10:1 5 PM SUPERVISOR ASSEMBLING 10/08/2024 11:56 PM SUPERVISOR ASSEMBLING Brianna Martínez ADMINISTRATIVE EXECUTIVE LAB BLOOD ORDERABLES Cammy l Result Performing Organization Address [facility] [place] [address] * (ABNORMAL) Comprehensive metabolic panel (10/08/2024 10:15 PM SUPERVISOR ASSEMBLING) Pathologist [facility] Sodium 141 135 - 145 mmol/L Potassium, pl 4.6 3.3 - 4.9 mmol/L [facility] Chloride 107 97 - 110 mmol/L [facility] CO2 25 22 - 32 mmol/L [facility] Anion gap 9 2 - 15 mmol/L [facility] BUN 33(H) 6 - 25 mg/dL [facility] Creatinine 1.33(H) 0.80 - 1.30 mg/dL [facility] Glucose 108 70 - 199 mg/dL [facility] Comment: Interpretive Data Fasting glucose [...] 2022. Calcium 8.6 8.5 - 10.3 mg/dL [facility] Bilirubin, total 0.3 0.1 - 1.2 mg/dL [facility] Protein, pl 4.8(L) 6.5 - 8.5 g/dL [facility] Albumin 2.9(L) 3.5 - 5.0 g/dL [facility] Alk phos 49 40 - 130 Units/L [facility] ALT 39 7 - 55 Units/L [facility] AST 19 10 - 50 Units/L [facility] Blood 10/08/2024 10:1 5 PM SUPERVISOR ASSEMBLING 10/08/2024 11:56 PM SUPERVISOR ASSEMBLING Brianna Martínez ADMINISTRATIVE EXECUTIVE LAB BLOOD ORDERABLES Cammy ramos Result [facility] [place] [address] * (ABNORMAL) CBC without differential (10/08/2024 10:15 PM SUPERVISOR ASSEMBLING) WBC 19.8(H) 3.8 - 9.9 K/cumm Hgb 11.2(L) 13.0 - 17.5 g/dL [facility] Hct 32.9(L) 38.9 - 50.3 % [facility] Plt 264 150 - 400 K/cumm [facility] MPV 10.5 9.1 - 12.3 fL [facility] RBC 3.57(L) 4.30 - 5.80 M/cumm [facility] MCV 92.2 81.3 - 96.4 fL [facility] MCH 31.4 27.1 - 33.3 pg [facility] MCHC 34.0 32.3 - 35.7 g/dL [facility] RDW CV 13.7 11.1 - 14.9 % [facility] RDW SD 45.1 35.7 - 48.1 fL [facility] NRBC abs 0.02(H) 0.00 - 0.01 K/cumm [facility] Blood 10/08/2024 10:1 5 PM SUPERVISOR ASSEMBLING 10/08/2024 11:57 PM SUPERVISOR ASSEMBLING us Maria Isabel Unger ADMINISTRATIVE EXECUTIVE LAB BLOOD ORDERABLES Final Result Performing Organization Address [facility] Co de Phone Number [facility] [place] [address] * Troponin I high-sensitivity (10/08/2024 11:36 AM SUPERVISOR ASSEMBLING) Trop I hs 30 <=35 ng/L Comment: Interpretive Data For further hscTnI resources including the diagnostic algorithm and an aid in interpretation, copy and paste this link: https://bjhlab.testcatalog.org/show/hsTrop-1 Current Interpretive Data last revised 2020. Blood 10/08/2024 11:3 6 AM SUPERVISOR ASSEMBLING 10/08/2024 11:44 AM SUPERVISOR ASSEMBLING us Brianna Martínez ADMINISTRATIVE EXECUTIVE LAB BLOOD ORDERABLES Cammy l Result Performing Organization Address [facility]/ZIP Co de Phone Number [facility] [place] [address] * (ABNORMAL) Lactate (10/08/2024 8:38 AM SUPERVISOR ASSEMBLING) Lactate 2.9(H) 0.7 - 2.0 mmol/L Blood 10/08/2024 8:38 AM SUPERVISOR ASSEMBLING 10/08/2024 11:44 AM SUPERVISOR ASSEMBLING us Brianna Martínez NP LAB BLOOD ORDERABLES Cammy l Result Performing Organization Address City/[facility]/ZIP Co de Phone Number [facility] [place] [address] * eGFR (10/07/2024 10:19 PM SUPERVISOR ASSEMBLING) eGFR 62 >=60 mL/min/1. 73 m2 Comment: [...] reviewed 2021. Blood 10/07/2024 10:1 9 PM SUPERVISOR ASSEMBLING 10/07/2024 11:24 PM SUPERVISOR ASSEMBLING us James Robles MD LAB BLOOD ORDERABLES Final Resu lt Performing Organization Address [facility]/ZIP Co de Phone Number [facility] [place] [address] * (ABNORMAL) CBC without differential (10/07/2024 10:19 PM SUPERVISOR ASSEMBLING) [facility] WBC 17.2(H) 3.8 - 9.9 K/cumm Hgb 11.4(L) 13.0 - 17.5 g/dL [facility] Hct 32.7(L) 38.9 - 50.3 % [facility] Plt 264 150 - 400 K/cumm [facility] MPV 10.6 9.1 - 12.3 fL [facility] RBC 3.58(L) 4.30 - 5.80 M/cumm [facility] MCV 91.3 81.3 - 96.4 fL [facility] MCH 31.8 27.1 - 33.3 pg [facility] MCHC 34.9 32.3 - 35.7 g/dL [facility] RDW CV 13.2 11.1 - 14.9 % [facility] RDW SD 43.6 35.7 - 48.1 fL [facility] NRBC abs 0.00 0.00 - 0.01 K/cumm [facility] Blood 10/07/2024 10:1 9 PM SUPERVISOR ASSEMBLING 10/07/2024 11:24 PM SUPERVISOR ASSEMBLING Maria Isabel Unger NP LAB BLOOD ORDERABLES Final Result [facility] Department [place] [address] * (ABNORMAL) Basic metabolic panel (10/07/2024 10:19 PM SUPERVISOR ASSEMBLING) [facility] Sodium 142 135 - 145 mmol/L Potassium, pl 4.5 3.3 - 4.9 mmol/L [facility] Chloride 107 97 - 110 mmol/L [facility] CO2 26 22 - 32 mmol/L [facility] Anion gap 9 2 - 15 mmol/L [facility] BUN 33(H) 6 - 25 mg/dL [facility] Creatinine 1.21 0.80 - 1.30 mg/dL [facility] Glucose 140 70 - 199 mg/dL [facility] Comment: Interpretive Data Fasting glucose [...] 2022. Calcium 8.5 8.5 - 10.3 mg/dL [facility] Blood 10/07/2024 10:1 9 PM SUPERVISOR ASSEMBLING 10/07/2024 11:24 PM SUPERVISOR ASSEMBLING us James Robles MD LAB BLOOD ORDERABLES Final Resu lt Performing Organization Address [facility]/ZIP Co de Phone Number [facility] [place] [address] * (ABNORMAL) Lactate, whole blood (10/07/2024 9:09 AM SUPERVISOR ASSEMBLING) Pathologist [facility] Lactate, bld 3.4(H) 0.7 - 2.0 mmol/L Blood 10/07/2024 9:09 AM SUPERVISOR ASSEMBLING 10/07/2024 9:15 AM SUPERVISOR ASSEMBLING us Brianna Martínez NP LAB BLOOD ORDERABLES Cammy l Result Performing Organization Address City/[facility]/ZIP Co de Phone Number [facility] [place] [address] * (ABNORMAL) Urinalysis, microscopic only (10/07/2024 5:37 AM SUPERVISOR ASSEMBLING) WBC, ur 0-5 0 - 5 /HPF RBC, ur 11-20(A) 0 - 2 /HPF [facility] Mucous, ur Present(A) [facility] Culture Reflex Comment Reflex conditions for urine culture (WBC >10) not met. [facility] Urine 10/07/2024 5:37 AM SUPERVISOR ASSEMBLING 10/07/2024 5:46 AM SUPERVISOR ASSEMBLING Result [facility] James Robles MD LAB URINE ORDERABLES Final Resu lt Performing Organization Address City/[facility]/ZIP Co de Phone Number [facility] [place] [address] * (ABNORMAL) Urinalysis reflex to microscopic and culture Urine (10/07/2024 5:37 AM SUPERVISOR ASSEMBLING) Color, ur Straw Yellow Clarity, ur Clear Clear [facility] Specific gravity, ur 1.013 1.003 - 1.030 [facility] pH, urine 7.0 [facility] Comment: Interpretive Data ? Urine pH is affected by diet, medications, systemic acid-base disturbances, and renal tubular function. ??pH may affect urinary stone formation. ??For example, urine pH below 6.0 may help reduce the tendency for calcium phosphate stones and pH greater than 6.0 may reduce the tendency for uric acid stone formation. Source: [facility] Current Interpretive Data was last revised on 2017 Protein, ur ql Negative Negative [facility] Glucose, ur ql Negative Negative [facility] Ketones, ur Negative Negative [facility] Bilirubin, ur Negative Negative [facility] Blood, ur Trace(A) Negative [facility] Urobilinogen, ur <2.0 <2.0 mg/dL [facility] Nitrite, ur Negative Negative [facility] Leukocyte esterase, ur Negative Negative [facility] UA reflex comment Reflex to microscopic UA will be performed. [facility] Urine 10/07/2024 5:37 AM SUPERVISOR ASSEMBLING 10/07/2024 5:46 AM SUPERVISOR ASSEMBLING James Robles MD LAB MICROBIOLOGY - GENERAL ORDE RABLES Final Result [facility] [place] [address] * Blood culture Blood (10/07/2024 5:37 AM SUPERVISOR ASSEMBLING) Report Final Report: No growth Blood 10/07/2024 5:37 AM SUPERVISOR ASSEMBLING 10/07/2024 7:00 AM SUPERVISOR ASSEMBLING Narrative [facility] - 10/11/2024 7:00 AM SUPERVISOR ASSEMBLING Collection->Peripheral 1. ?Blood cultures are incubated for [...] organism identification may be performed using the [employer] Gram-Positive Blood Culture Assay. This assay detects microbial DNA in positive blood culture broth via hybridization of target DNA to capture oligonucleotides on a microarray. This assay has been cleared by the [place] Food and Drug Administration and its performance characteristics have been verified by the [facility] Microbiology Laboratory. 5. ?For questions about this culture, contact the Microbiology Laboratory at [phone]. Interpretive data was last revised on 2020. us James Robles MD LAB MICROBIOLOGY - GENERAL RAYMOND JEFFERY Final Result [facility] Department [place] [address] * Blood culture Blood (10/07/2024 5:37 AM SUPERVISOR ASSEMBLING) Report Final Report: No growth Blood 10/07/2024 5:37 AM SUPERVISOR ASSEMBLING 10/07/2024 6:07 AM SUPERVISOR ASSEMBLING Narrative [facility] - 10/11/2024 7:00 AM SUPERVISOR ASSEMBLING Collection->Peripheral 1. ?Blood cultures are incubated for [...] organism identification may be performed using the [employer] Gram-Positive Blood Culture Assay. This assay detects microbial DNA in positive blood culture broth via hybridization of target DNA to capture oligonucleotides on a microarray. This assay has been cleared by the [place] Food and Drug Administration and its performance characteristics have been verified by the [facility] Microbiology Laboratory. 5. ?For questions about this culture, contact the Microbiology Laboratory at [phone]. Interpretive data was last revised on 2020. James Robles MD LAB MICROBIOLOGY - GENERAL RAYMOND JEFFERY Final Result [facility] Department [place] [address] * XR Chest 1 View (10/07/2024 5:18 AM SUPERVISOR ASSEMBLING) Anatomical Region Laterality Modality Body, Chest N/A Computed Radiogr aphy 10/07/2024 7:05 AM SUPERVISOR ASSEMBLING Impressions 10/07/2024 7:05 AM SUPERVISOR ASSEMBLING The current study is compared with the prior radiograph dated ??10/02/2024. ??Spine stimulator is present. ??The heart and mediastinal contours are normal. ??There is no mass or consolidation. There is no lymphadenopathy. ??There are no pleural effusions. ??There is no pneumothorax. There is no interval change. Electronically signed by: Lauren Cantrell M.D. Narrative 10/07/2024 7:05 AM SUPERVISOR ASSEMBLING EXAMINATION: 1 view chest radiograph Procedure Note [...] (ABNORMAL) Lactate, whole blood (10/06/2024 9:30 PM SUPERVISOR ASSEMBLING) Lactate, bld 2.7(H) 0.7 - 2.0 mmol/L Blood 10/06/2024 9:30 PM [employer] 10/06/2024 9:30 PM [employer] us Tamanna Porras NP LAB BLOOD ORDERABLES Final Resul t Performing Organization Address City/State/[facility] Co de Phone Number [facility] Department [place] [address] * eGFR (10/06/2024 9:16 PM [employer]) eGFR 61 >=60 mL/min/1. 73 m2 Comment: [...] last reviewed 2021. Blood 10/06/2024 9:16 PM [employer]PERVISOR [employer]SEMBLING 10/06/2024 9:34 PM SUPERVISOR [employer]SEMBL[employer] us James Robles MD LAB BLOOD ORDERABLES Final Resu lt [facility] One [facility] [place] [address] * (ABNORMAL) CBC without differential (10/06/2024 9:16 PM SUPERVISOR ASSEMBLING) WBC 17.1(H) 3.8 - 9.9 K/cumm Hgb 10.8(L) 13.0 - 17.5 g/dL [facility] Hct 30.7(L) 38.9 - 50.3 % [facility] Plt 256 150 - 400 K/cumm [facility] MPV 10.3 9.1 - 12.3 fL [facility] RBC 3.40(L) 4.30 - 5.80 M/cumm [facility] MCV 90.3 81.3 - 96.4 fL [facility] MCH 31.8 27.1 - 33.3 pg [facility] MCHC 35.2 32.3 - 35.7 g/dL [facility] RDW CV 13.1 11.1 - 14.9 % [facility] RDW SD 43.2 35.7 - 48.1 fL [facility] NRBC abs 0.00 0.00 - 0.01 K/cumm [facility] Blood 10/06/2024 9:16 PM SUPERVISOR [employer]SEM[employer]ING 10/06/2024 9:34 PM SUPERVISOR ASSEMBLING Maria Isabel Unger NP LAB BLOOD ORDERABLES Final Result Performing Organization Address City/[facility]/ZIP Co de Phone Number [facility] One [facility] Department [place] [address] * (ABNORMAL) Basic metabolic panel (10/06/2024 9:16 PM SUPERVISOR [employer]SEMBL[employer]) Sodium 140 135 - 145 mmol/L Potassium, pl 4.7 3.3 - 4.9 mmol/L [facility] Chloride 105 97 - 110 mmol/L [facility] CO2 25 22 - 32 mmol/L [facility] Anion gap 10 2 - 15 mmol/L [facility] BUN 32(H) 6 - 25 mg/dL [facility] Creatinine 1.22 0.80 - 1.30 mg/dL [facility] Glucose 152 70 - 199 mg/dL [facility] Comment: Interpretive Data Fasting glucose [...] 2022. Calcium 8.7 8.5 - 10.3 mg/dL [facility] Blood 10/06/2024 9:16 PM SUPERVISOR [employer]SEMBLING 10/06/2024 9:34 PM SUPERVISOR ASSEMBLING us James Robles MD LAB BLOOD ORDERABLES Final Resu lt [facility] Department [place] [address] * eGFR (10/05/2024 10:43 PM SUPERVISOR ASSEMBLING) Pathologist [facility] eGFR 67 >=60 mL/min/1. 73 m2 Comment: [...] reviewed 2021. Blood 10/05/2024 10:4 3 PM SUPERVISOR [employer]SEMBLING 10/05/2024 11:10 PM SUPERVISOR ASSEMBLING us James Robles MD LAB BLOOD ORDERABLES Final Resu lt [facility] Department [place] [address] * (ABNORMAL) CBC without differential (10/05/2024 10:43 PM SUPERVISOR ASSEMBLING) Pathologist [facility] WBC 16.5(H) 3.8 - 9.9 K/cumm Hgb 10.5(L) 13.0 - 17.5 g/dL [facility] Hct 31.4(L) 38.9 - 50.3 % [facility] Plt 238 150 - 400 K/cumm [facility] MPV 10.7 9.1 - 12.3 fL [facility] RBC 3.37(L) 4.30 - 5.80 M/cumm [facility] MCV 93.2 81.3 - 96.4 fL [facility] MCH 31.2 27.1 - 33.3 pg [facility] MCHC 33.4 32.3 - 35.7 g/dL [facility] RDW CV 13.3 11.1 - 14.9 % [facility] RDW SD 45.3 35.7 - 48.1 fL [facility] NRBC abs 0.00 0.00 - 0.01 K/cumm [facility] Blood 10/05/2024 10:4 3 PM SUPERVISOR [employer]SEMBLING 10/05/2024 11:11 PM SUPERVISOR ASSEMBLING us Maria Isabel Unger ADMINISTRATIVE EXECUTIVE LAB BLOOD ORDERABLES Final Result Performing Organization Address City/[facility]/ZIP Co de Phone Number [facility] Department of Laboratories [place], [place] [id number] * (ABNORMAL) Lactate, whole blood (10/05/2024 10:43 PM SUPERVISOR ASSEMBLING) Pathologist [facility] Lactate, bld 2.2(H) 0.7 - 2.0 mmol/L Blood 10/05/2024 10:4 3 PM SUPERVISOR ASSEMBLING 10/05/2024 11:07 PM SUPERVISOR ASSEMBLING Tamanna Porras ADMINISTRATIVE EXECUTIVE LAB BLOOD ORDERABLES Final Resul t Performing Organization Address City/[facility]/ZIP Co de Phone Number [facility] Department [place] [address] * (ABNORMAL) Basic metabolic panel (10/05/2024 10:43 PM SUPERVISOR ASSEMBLING) Sodium 143 135 - 145 mmol/L Potassium, pl 4.4 3.3 - 4.9 mmol/L [facility] Chloride 108 97 - 110 mmol/L [facility] CO2 25 22 - 32 mmol/L [facility] Anion gap 10 2 - 15 mmol/L [facility] BUN 30(H) 6 - 25 mg/dL [facility] Creatinine 1.14 0.80 - 1.30 mg/dL [facility] Glucose 139 70 - 199 mg/dL [facility] Comment: Interpretive Data Fasting glucose [...] 2022. Calcium 8.8 8.5 - 10.3 mg/dL [facility] Blood 10/05/2024 10:4 3 PM SUPERVISOR ASSEMBLING 10/05/2024 11:10 PM SUPERVISOR ASSEMBLING us James Robles MD LAB BLOOD ORDERABLES Final Resu lt [facility] One [facility] [place] [address] * (ABNORMAL) eGFR (10/04/2024 8:49 PM SUPERVISOR ASSEMBLING) [facility] eGFR 57(L) >=60 mL/min/1. 73 m2 Comment: [...] last reviewed 2021. Blood 10/04/2024 8:49 PM SUPERVISOR ASSEMBLING 10/04/2024 9:06 PM SUPERVISOR ASSEMBLING us James Robles MD LAB BLOOD ORDERABLES Final Resu lt [facility] One [facility] Department [place] [address] * (ABNORMAL) Differential, auto (10/04/2024 8:49 PM SUPERVISOR ASSEMBLING) Pathologist [facility] Neutrophil abs 20.1(H) 1.5 - 6.5 K/cumm Imm gran abs 0.3(H) 0.0 - 0.1 K/cumm [facility] Lymphocyte abs 1.2 0.8 - 3.3 K/cumm [facility] Monocyte abs 1.4(H) 0.2 - 0.8 K/cumm [facility] Eosinophil abs 0.0 0.0 - 0.5 K/cumm [facility] Basophil abs 0.0 0.0 - 0.1 K/cumm [facility] Neutrophil pct 87.4 % [facility] Comment: Consistent with previous result Interpretive Data Percent cell count reference ranges are not reported, since discordance with absolute values may lead to misinterpretation of CBC data. Current Interpretive Data was last revised on 2018. Imm gran pct 1.3 % [facility] Comment: Interpretive Data Percent cell count reference ranges are not reported, since discordance with absolute values may lead to misinterpretation of CBC data. Current Interpretive Data was last revised on 2018. Lymphocyte pct 5.2 % [facility] Comment: Interpretive Data Percent cell count reference ranges are not reported, since discordance with absolute values may lead to misinterpretation of CBC data. Current Interpretive Data was last revised on 2018. Monocyte pct 6.0 % [facility] Comment: Interpretive Data Percent cell count reference ranges are not reported, since discordance with absolute values may lead to misinterpretation of CBC data. Current Interpretive Data was last revised on 2018. Eosinophil pct 0.0 % [facility] Comment: Interpretive Data Percent cell count reference ranges are not reported, since discordance with absolute values may lead to misinterpretation of CBC data. Current Interpretive Data was last revised on 2018. Basophil pct 0.1 % [facility] Comment: Interpretive Data Percent cell count reference ranges are not reported, since discordance with absolute values may lead to misinterpretation of CBC data. Current Interpretive Data was last revised on 2018. Blood 10/04/2024 8:49 PM SUPERVISOR ASSEMBLING 10/04/2024 9:06 PM SUPERVISOR ASSEMBLING us James Robles MD LAB BLOOD ORDERABLES Final Resu lt [facility] One [facility] Department [place] [address] * (ABNORMAL) Lactate, whole blood (10/04/2024 8:49 PM SUPERVISOR ASSEMBLING) Lactate, bld 2.5(H) 0.7 - 2.0 mmol/L Blood 10/04/2024 8:49 PM SUPERVISOR ASSEMBLING 10/04/2024 9:00 PM SUPERVISOR ASSEMBLING us Tamanna Porras NP LAB BLOOD ORDERABLES Final Resul t [facility] Department [place] [address] * Calcium, ionized, whole blood (10/04/2024 8:49 PM SUPERVISOR ASSEMBLING) [facility] Ca, ionized, bld 5.10 4.50 - 5.10 mg/dL Blood 10/04/2024 8:49 PM SUPERVISOR ASSEMBLING 10/04/2024 9:00 PM SUPERVISOR ASSEMBLING us Tamanna Porras ADMINISTRATIVE EXECUTIVE LAB BLOOD ORDERABLES Final Resul t Performing Organization Address [facility] de Phone Number [facility] [place] [address] * (ABNORMAL) Troponin I high-sensitivity (10/04/2024 8:49 PM SUPERVISOR ASSEMBLING) [facility] Trop I hs 128(H) <=35 ng/L Comment: Interpretive Data For further hscTnI resources including the diagnostic algorithm and an aid in interpretation, copy and paste this link: https://bjhlab.testcatalog.org/show/hsTrop-1 Current Interpretive Data last revised 2020. Blood 10/04/2024 8:49 PM SUPERVISOR ASSEMBLING 10/04/2024 9:06 PM SUPERVISOR ASSEMBLING us Tamanna Porras NP LAB BLOOD ORDERABLES Final Resul t Performing Organization Address [facility] Co de Phone Number [facility] Department [place] [address] * (ABNORMAL) CBC with auto differential (10/04/2024 8:49 PM SUPERVISOR ASSEMBLING) [facility] WBC 23.0(H) 3.8 - 9.9 K/cumm Hgb 10.5(L) 13.0 - 17.5 g/dL [facility] Hct 31.0(L) 38.9 - 50.3 % [facility] Plt 207 150 - 400 K/cumm [facility] MPV 10.2 9.1 - 12.3 fL [facility] RBC 3.34(L) 4.30 - 5.80 M/cumm [facility] MCV 92.8 81.3 - 96.4 fL [facility] MCH 31.4 27.1 - 33.3 pg [facility] MCHC 33.9 32.3 - 35.7 g/dL [facility] RDW CV 13.6 11.1 - 14.9 % [facility] RDW SD 45.7 35.7 - 48.1 fL [facility] NRBC abs 0.00 0.00 - 0.01 K/cumm [facility] Blood 10/04/2024 8:49 PM SUPERVISOR ASSEMBLING 10/04/2024 9:06 PM SUPERVISOR ASSEMBLING us James Robles MD LAB BLOOD ORDERABLES Final Resu lt [facility] One [facility] Department [place] [address] * (ABNORMAL) Basic metabolic panel (10/04/2024 8:49 PM SUPERVISOR ASSEMBLING) Sodium 144 135 - 145 mmol/L Potassium, pl 4.4 3.3 - 4.9 mmol/L [facility] Chloride 113(H) 97 - 110 mmol/L [facility] CO2 22 22 - 32 mmol/L [facility] Anion gap 9 2 - 15 mmol/L [facility] BUN 24 6 - 25 mg/dL [facility] Creatinine 1.30 0.80 - 1.30 mg/dL [facility] Glucose 168 70 - 199 mg/dL [facility] Comment: Interpretive Data Fasting glucose [...] 2022. Calcium 8.4(L) 8.5 - 10.3 mg/dL [facility] Blood 10/04/2024 8:49 PM SUPERVISOR ASSEMBLING 10/04/2024 9:06 PM SUPERVISOR ASSEMBLING us James Robles MD LAB BLOOD ORDERABLES Final Resu lt Performing Organization Address [facility] de Phone Number [facility] [place] [address] * (ABNORMAL) Urinalysis, microscopic only (10/04/2024 1:30 PM SUPERVISOR ASSEMBLING) WBC, ur 0-5 0 - 5 /HPF RBC, ur >50(A) 0 - 2 /HPF [facility] Epithelial cells, squamous, ur 1-5 0 - 5 /HPF [facility] Mucous, ur Present(A) [facility] Culture Reflex Comment Reflex conditions for urine culture (WBC >10) not met. [facility] Urine 10/04/2024 1:30 PM SUPERVISOR ASSEMBLING 10/04/2024 4:15 PM SUPERVISOR ASSEMBLING us Tamanna Porras NP LAB URINE ORDERABLES Final Resul t Performing Organization Address [facility] de Phone Number [facility] [place] [address] * (ABNORMAL) Urinalysis reflex to microscopic and culture Urine (10/04/2024 1:30 PM SUPERVISOR ASSEMBLING) Color, ur Straw Yellow Clarity, ur Clear Clear [facility] Specific gravity, ur 1.028 1.003 - 1.030 [facility] pH, urine 6.0 [facility] Comment: Interpretive Data ? Urine pH is affected by diet, medications, systemic acid-base disturbances, and renal tubular function. ??pH may affect urinary stone formation. ??For example, urine pH below 6.0 may help reduce the tendency for calcium phosphate stones and pH greater than 6.0 may reduce the tendency for uric acid stone formation. Source: [facility] Current Interpretive Data was last revised on 2017 Protein, ur ql 1+(A) Negative [facility] Glucose, ur ql Negative Negative [facility] Ketones, ur Negative Negative [facility] Bilirubin, ur Negative Negative [facility] Blood, ur 3+(A) Negative [facility] Urobilinogen, ur <2.0 <2.0 mg/dL [facility] Nitrite, ur Negative Negative [facility] Leukocyte esterase, ur Negative Negative [facility] UA reflex comment Reflex to microscopic UA will be performed. [facility] Urine 10/04/2024 1:30 PM SUPERVISOR ASSEMBLING 10/04/2024 4:16 PM SUPERVISOR ASSEMBLING Tamanna Porras NP LAB MICROBIOLOGY - GENERAL ORDER TALYA Final Result Performing Organization Address [facility]/ZIP Co de Phone Number [facility] Department [place] [address] * (ABNORMAL) Lactate, whole blood (10/04/2024 12:12 PM SUPERVISOR ASSEMBLING) Pathologist [facility] Lactate, bld 3.7(H) 0.7 - 2.0 mmol/L Blood 10/04/2024 12:1 2 PM SUPERVISOR ASSEMBLING 10/04/2024 12:22 PM SUPERVISOR ASSEMBLING Tamanna Porras NP LAB BLOOD ORDERABLES Final Resul t Performing Organization Address City/[facility]/ZIP Co de Phone Number [facility] Department [place] [address] * (ABNORMAL) Troponin I high-sensitivity 2-hour (10/04/2024 12:06 PM SUPERVISOR ASSEMBLING) Pathologist [facility] Trop I hs 132(H) <=35 ng/L Comment: Interpretive Data For further hscTnI resources including the diagnostic algorithm and an aid in interpretation, copy and paste this link: https://bjhlab.testcatalog.org/show/hsTrop-[email or web address] Current Interpretive Data last revised 2020. Trop I hs pct delta -9 % [facility] Trop I hs interp Equivocal [facility] Blood 10/04/2024 12:0 6 PM SUPERVISOR ASSEMBLING 10/04/2024 12:30 PM SUPERVISOR ASSEMBLING Geraldine Leary NP LAB BLOOD ORDERABLES Final Result Performing Organization Address City/[facility]/ZIP Co de Phone Number [facility] Department [place] [address] * Critical Result Callback Chemistry (10/04/2024 9:06 AM SUPERVISOR ASSEMBLING) Date Notified [id number] Time Notified 1024 [facility] TestName Lactate [facility] Called/Read Back Arin [facility] Credentials RN [facility] Called By NEAL [facility] Blood 10/04/2024 9:06 AM SUPERVISOR ASSEMBLING 10/04/2024 9:58 AM SUPERVISOR ASSEMBLING Geraldine Leary NP LAB BLOOD ORDERABLES Final Result Performing Organization Address [facility] Co de Phone Number [facility] Department [place] [address] * (ABNORMAL) Troponin I high-sensitivity series (baseline, 2hr, 4hr, 6hr) (10/04/2024 9:06 AM SUPERVISOR ASSEMBLING) Trop I hs 145(H) <=35 ng/L Comment: Interpretive Data For further hscTnI resources including the diagnostic algorithm and an aid in interpretation, copy and paste this link: https://bjhlab.testcatalog.org/show/hsTrop-1 Current Interpretive Data last revised 2020. Blood 10/04/2024 9:06 AM SUPERVISOR ASSEMBLING 10/04/2024 9:58 AM SUPERVISOR ASSEMBLING Geraldine Leary ADMINISTRATIVE EXECUTIVE LAB BLOOD ORDERABLES Final Result [facility] Department [place] [address] * (ABNORMAL) Lactate (10/04/2024 9:06 AM SUPERVISOR ASSEMBLING) [facility] Lactate 4.1(C) 0.7 - 2.0 mmol/L Blood 10/04/2024 9:06 AM SUPERVISOR ASSEMBLING 10/04/2024 9:58 AM SUPERVISOR ASSEMBLING Geraldine Leary NP LAB BLOOD ORDERABLES Final Result Performing Organization Address City/[facility] Co de Phone Number [facility] [place] [address] * Influenza A/B, RSV, and COVID-19 PCR Nasopharyngeal (10/04/2024 9:06 AM SUPERVISOR ASSEMBLING) [facility] COVID-19 RNA Negative Negative [facility] Influenza A RNA Negative Negative [facility] Influenza B RNA Negative Negative [facility] RSV RNA Negative Negative [facility] Comment: Interpretive data: Testing performed by [facility] ([phone]). This test is performed using the [employer] Xpert Xpress CoV-2/Flu/RSV plus assay. This is a multiplex, real-time reverse transcriptase PCR assay intended for the qualitative detection of nucleic acid from SARS-CoV-2, influenza A, influenza B, and respiratory syncytial virus. This assay has been cleared by the [place] Food and Drug administration. The performance characteristics have been verified by the [facility]. ??Results must be considered in the clinical context, and a negative result does not rule out infection. Interpretive Data last revised 2023 Nasopharyngeal 10/04/2024 9: 06 AM SUPERVISOR ASSEMBLING 10/04/2024 10:22 AM SUPERVISOR ASSEMBLING Narrative [facility] - 10/04/2024 11:17 AM SUPERVISOR ASSEMBLING Is the Patient experiencing symptoms consistent with COVID?->Unknown Geraldine Leary NP LAB MICROBIOLOGY - GE NERAL ORDERABLES Final Result Performing Organization Address [facility]/ZIP Co de Phone Number [facility] Department [place] [address] BJ * eGFR (10/03/2024 10:36 PM SUPERVISOR ASSEMBLING) Pathologist [facility] eGFR 61 >=60 mL/min/1. 73 m2 Comment: [...] reviewed 2021. Blood 10/03/2024 10:3 6 PM SUPERVISOR ASSEMBLING 10/03/2024 10:52 PM SUPERVISOR ASSEMBLING James Robles MD LAB BLOOD ORDERABLES Final Resu lt [facility] Department [place] [address] * (ABNORMAL) Basic metabolic panel (10/03/2024 10:36 PM SUPERVISOR ASSEMBLING) [facility] Sodium 142 135 - 145 mmol/L Potassium, pl 4.4 3.3 - 4.9 mmol/L [facility] Chloride 113(H) 97 - 110 mmol/L [facility] CO2 22 22 - 32 mmol/L [facility] Anion gap 7 2 - 15 mmol/L [facility] BUN 17 6 - 25 mg/dL [facility] Creatinine 1.23 0.80 - 1.30 mg/dL [facility] Glucose 162 70 - 199 mg/dL [facility] Comment: Interpretive Data Fasting glucose [...] 2022. Calcium 8.1(L) 8.5 - 10.3 mg/dL [facility] Blood 10/03/2024 10:3 6 PM SUPERVISOR ASSEMBLING 10/03/2024 10:52 PM SUPERVISOR ASSEMBLING us James Robles MD LAB BLOOD ORDERABLES Final Resu lt [facility] Department [place] [address] * (ABNORMAL) Differential, auto (10/03/2024 8:30 PM SUPERVISOR ASSEMBLING) [facility] Neutrophil abs 22.7(H) 1.5 - 6.5 K/cumm Imm gran abs 0.3(H) 0.0 - 0.1 K/cumm [facility] Lymphocyte abs 1.2 0.8 - 3.3 K/cumm [facility] Monocyte abs 2.1(H) 0.2 - 0.8 K/cumm [facility] Eosinophil abs 0.0 0.0 - 0.5 K/cumm [facility] Basophil abs 0.0 0.0 - 0.1 K/cumm [facility] Neutrophil pct 86.2 % [facility] Comment: Consistent with previous result Interpretive Data Percent cell count reference ranges are not reported, since discordance with absolute values may lead to misinterpretation of CBC data. Current Interpretive Data was last revised on 2018. Imm gran pct 1.1 % [facility] Comment: Interpretive Data Percent cell count reference ranges are not reported, since discordance with absolute values may lead to misinterpretation of CBC data. Current Interpretive Data was last revised on 2018. Lymphocyte pct 4.6 % [facility] Comment: Interpretive Data Percent cell count reference ranges are not reported, since discordance with absolute values may lead to misinterpretation of CBC data. Current Interpretive Data was last revised on 2018. Monocyte pct 8.0 % [facility] Comment: Interpretive Data Percent cell count reference ranges are not reported, since discordance with absolute values may lead to misinterpretation of CBC data. Current Interpretive Data was last revised on 2018. Eosinophil pct 0.0 % [facility] Comment: Interpretive Data Percent cell count reference ranges are not reported, since discordance with absolute values may lead to misinterpretation of CBC data. Current Interpretive Data was last revised on 2018. Basophil pct 0.1 % [facility] Comment: Interpretive Data Percent cell count reference ranges are not reported, since discordance with absolute values may lead to misinterpretation of CBC data. Current Interpretive Data was last revised on 2018. Blood 10/03/2024 8:30 PM SUPERVISOR ASSEMBLING 10/03/2024 9:05 PM SUPERVISOR ASSEMBLING us James Robles MD LAB BLOOD ORDERABLES Final Resu lt [facility] [place] [address] * (ABNORMAL) CBC with auto differential (10/03/2024 8:30 PM SUPERVISOR ASSEMBLING) WBC 26.3(H) 3.8 - 9.9 K/cumm Hgb 11.3(L) 13.0 - 17.5 g/dL [facility] Hct 33.7(L) 38.9 - 50.3 % [facility] Plt 302 150 - 400 K/cumm [facility] MPV 10.4 9.1 - 12.3 fL [facility] RBC 3.61(L) 4.30 - 5.80 M/cumm [facility] MCV 93.4 81.3 - 96.4 fL [facility] MCH 31.3 27.1 - 33.3 pg [facility] MCHC 33.5 32.3 - 35.7 g/dL [facility] RDW CV 13.2 11.1 - 14.9 % [facility] RDW SD 45.1 35.7 - 48.1 fL [facility] NRBC abs 0.00 0.00 - 0.01 K/cumm [facility] Blood 10/03/2024 8:30 PM SUPERVISOR ASSEMBLING 10/03/2024 9:05 PM SUPERVISOR ASSEMBLING us James Robles MD LAB BLOOD ORDERABLES Final Resu lt [facility] One [facility] [place] [address] * eGFR (10/03/2024 8:25 PM SUPERVISOR ASSEMBLING) eGFR 60 >=60 mL/min/1. 73 m2 Comment: [...] last reviewed 2021. Blood 10/03/2024 8:25 PM SUPERVISOR ASSEMBLING 10/03/2024 9:05 PM SUPERVISOR ASSEMBLING us James Robles MD LAB BLOOD ORDERABLES Final Resu lt [facility] One [facility] [place] [address] * (ABNORMAL) Basic metabolic panel (10/03/2024 8:25 PM SUPERVISOR ASSEMBLING) Sodium 143 135 - 145 mmol/L Potassium, pl 4.1 3.3 - 4.9 mmol/L [facility] Chloride 113(H) 97 - 110 mmol/L [facility] CO2 20(L) 22 - 32 mmol/L [facility] Anion gap 10 2 - 15 mmol/L [facility] BUN 17 6 - 25 mg/dL [facility] Creatinine 1.25 0.80 - 1.30 mg/dL [facility] Glucose 163 70 - 199 mg/dL [facility] Comment: Interpretive Data Fasting glucose [...] 2022. Calcium 8.0(L) 8.5 - 10.3 mg/dL [facility] Blood 10/03/2024 8:25 PM [employer] 10/03/2024 9:05 PM [employer] James Robles MD LAB BLOOD ORDERABLES Final Resu lt Performing Organization Address City/[facility]/ZIP Co de Phone Number [facility] One [facility] Department [place] [address] * ECG 12 lead (10/03/2024 2:19 PM [employer]) Ventricular Rate EKG/Min 96 BPM [facility] Atrial Rate 96 BPM [facility] NE-Interval (MSEC) 242 ms [facility] QRS-Interval (MSEC) 110 ms [facility] QT-Interval (MSEC) 364 ms [facility] QTc 459 ms [facility] P [place] 69 degrees [facility] R [place] 76 degrees [facility] T [place] 1 degrees [facility] Diagnosis Sinus rhythm with 1st degree A-V block Nonspecific ST and T wave abnormality Abnormal ECG When compared with ECG of 10-MAY-2008 09:35, NE interval has increased Vent. rate has increased BY ??35 BPM Non-specific change in ST segment in Inferior leads ST now depressed in Anterolateral leads Nonspecific T wave abnormality now evident in Inferior leads QT has lengthened Confirmed by JACOBO CARSON M.D ([id number]) on 10/04/2024 10:42:26 AM [facility] 10/03/2024 2:19 PM [employer] 10/04/2024 10:42 AM [employer] James Robles MD ECG ORDERABLES Final Result Performing Organization Address [facility]/ZIP Co de Phone Number [facility] * POCT glucose (10/03/2024 2:07 PM [employer]) Glucose, POC 128 70 - 199 mg/dL Blood 10/03/2024 2:07 PM [employer] 10/03/2024 2:07 PM [employer] us James Robles MD LAB POCT ORDERABLES - DEVICE Fi nal Result Performing Organization Address [facility] Co de Phone Number [facility] [place] [address] * (ABNORMAL) eGFR (10/03/2024 4:58 AM [employer]) eGFR 57(L) >=60 mL/min/1. 73 m2 Comment: [...] last reviewed 2021. Blood 10/03/2024 4:58 AM [employer] 10/03/2024 5:32 AM [employer] us James Robles MD LAB BLOOD ORDERABLES Final Resu lt Performing Organization Address City/[facility]/ZIP Co de Phone Number [facility] [place] [address] * (ABNORMAL) Differential, auto (10/03/2024 4:58 AM [employer]) Neutrophil abs 28.0(H) 1.5 - 6.5 K/cumm [...] 2018. Imm gran pct 0.6 % [facility] Comment: Interpretive Data Percent cell [...] on 2018. Eosinophil pct 0.0 % [facility] Comment: Interpretive Data Percent cell [...] revised on 2018. Blood 10/03/2024 4:58 AM [employer] 10/03/2024 5:32 AM [employer] James Robles MD LAB BLOOD ORDERABLES Final Resu lt Performing Organization Address City/[facility]/ZIP Co de Phone Number [facility] [place] [address] * (ABNORMAL) Basic metabolic panel (10/03/2024 4:58 AM [employer]) [facility] Sodium 143 135 - 145 mmol/L Potassium, pl 4.7 3.3 - 4.9 mmol/L [facility] Chloride 111(H) 97 - 110 mmol/L [facility] CO2 22 22 - 32 mmol/L [facility] Anion gap 10 2 - 15 mmol/L [facility] BUN 14 6 - 25 mg/dL [facility] Creatinine 1.29 0.80 - 1.30 mg/dL [facility] Glucose 146 70 - 199 mg/dL [facility] Comment: Interpretive Data Fasting glucose [...] 2022. Calcium 8.3(L) 8.5 - 10.3 mg/dL [facility] Blood 10/03/2024 4:58 AM [employer] 10/03/2024 5:32 AM [employer] James Robles MD LAB BLOOD ORDERABLES Final Resu lt Performing Organization Address [facility]/ZIP Co de Phone Number [facility] One [facility] Department [place] [address] * (ABNORMAL) CBC with auto differential (10/03/2024 4:58 AM [employer]) WBC 30.5(H) 3.8 - 9.9 K/cumm Hgb 13.0 13.0 - 17.5 g/dL [facility] Hct 38.0(L) 38.9 - 50.3 % [facility] Plt 346 150 - 400 K/cumm [facility] MPV 10.2 9.1 - 12.3 fL [facility] RBC 4.14(L) 4.30 - 5.80 M/cumm [facility] MCV 91.8 81.3 - 96.4 fL [facility] MCH 31.4 27.1 - 33.3 pg [facility] MCHC 34.2 32.3 - 35.7 g/dL [facility] RDW CV 12.9 11.1 - 14.9 % [facility] RDW SD 43.0 35.7 - 48.1 fL [facility] NRBC abs 0.00 0.00 - 0.01 K/cumm [facility] Blood 10/03/2024 4:58 AM [employer] 10/03/2024 5:32 AM [employer] us James Robles MD LAB BLOOD ORDERABLES Final Resu lt [facility] One [facility] Department [place] [address] * XR chest 1 view (Portable) (10/02/2024 9:08 PM [employer]) Anatomical Region Laterality Modality Body, Chest N/A Computed Radiogr aphy 10/03/2024 8:28 AM [employer] Impressions 10/03/2024 4:05 PM [employer] No priors available for comparison. Spinal stimulator [...] James MD, PHD Narrative 10/03/2024 4:05 PM [employer] EXAMINATION: 1 view chest radiograph Procedure Note [...] Result * (ABNORMAL) eGFR (10/02/2024 4:01 PM [employer]) eGFR 57(L) >=60 mL/min/1. 73 m2 Comment: [...] last reviewed 2021. Blood 10/02/2024 4:01 PM [employer] 10/02/2024 4:17 PM [employer] us James Robles MD LAB BLOOD ORDERABLES Final Resu lt [facility] One [facility] Department [place] [address] * (ABNORMAL) Differential, auto (10/02/2024 4:01 PM [employer]) Neutrophil abs 14.1(H) 1.5 - 6.5 K/cumm Imm gran abs 0.1 0.0 - 0.1 K/cumm [facility] Lymphocyte abs 1.3 0.8 - 3.3 K/cumm [facility] Monocyte abs 0.7 0.2 - 0.8 K/cumm [facility] Eosinophil abs 0.0 0.0 - 0.5 K/cumm [facility] Basophil abs 0.1 0.0 - 0.1 K/cumm [facility] Neutrophil pct 86.5 % [facility] Comment: Interpretive Data Percent cell count reference ranges are not reported, since discordance with absolute values may lead to misinterpretation of CBC data. Current Interpretive Data was last revised on 2018. Imm gran pct 0.7 % [facility] Comment: Interpretive Data Percent cell count reference ranges are not reported, since discordance with absolute values may lead to misinterpretation of CBC data. Current Interpretive Data was last revised on 2018. Lymphocyte pct 8.0 % [facility] Comment: Interpretive Data Percent cell count reference ranges are not reported, since discordance with absolute values may lead to misinterpretation of CBC data. Current Interpretive Data was last revised on 2018. Monocyte pct 4.2 % [facility] Comment: Interpretive Data Percent cell count reference ranges are not reported, since discordance with absolute values may lead to misinterpretation of CBC data. Current Interpretive Data was last revised on 2018. Eosinophil pct 0.2 % [facility] Comment: Interpretive Data Percent cell count reference ranges are not reported, since discordance with absolute values may lead to misinterpretation of CBC data. Current Interpretive Data was last revised on 2018. Basophil pct 0.4 % [facility] Comment: Interpretive Data Percent cell count reference ranges are not reported, since discordance with absolute values may lead to misinterpretation of CBC data. Current Interpretive Data was last revised on 2018. Blood 10/02/2024 4:01 PM [employer] 10/02/2024 4:17 PM [employer] James Robles MD LAB BLOOD ORDERABLES Final Resu lt Performing Organization Address City/[facility]/ZIP Co de Phone Number [facility] [place] [address] * Protime-INR (10/02/2024 4:01 PM [employer]) PT 12.4 9.7 - 13.0 sec INR 1.14 0.90 - 1.20 [facility] Comment: Interpretive data Oral anticoagulant therapeutic ranges: Venous thromboembolism prophylaxis or treatment: 2.0-3.0 CARDIOLOGY Standard range: 2.0-3.0 High-intensity range: 2.5-3.5 Refer to indication-specific guidelines for appropriate target ranges for prosthetic heart valve replacement. Current interpretive data was last revised on 2019. Blood 10/02/2024 4:01 PM [employer] 10/02/2024 4:16 PM [employer] James Robles MD LAB BLOOD ORDERABLES Final Resu lt [facility] [place] [address] * (ABNORMAL) aPTT (10/02/2024 4:01 PM [employer]) [facility] aPTT 27(L) 28 - 38 sec Comment: Interpretive Data Heparin therapeutic range: 66.0 - 100.0 seconds. Range based on correlation with therapeutic heparin activity range of 0.3 - 0.7 Units/mL. Current interpretive data was last revised on 2023. Blood 10/02/2024 4:01 PM [employer] 10/02/2024 4:16 PM [employer] James Robles MD LAB BLOOD ORDERABLES Final Resu lt Performing Organization Address City/[facility]/ZIP Co de Phone Number [facility] One [facility] Department [place] [address] * (ABNORMAL) CBC with auto differential (10/02/2024 4:01 PM [employer]) [facility] WBC 16.3(H) 3.8 - 9.9 K/cumm Hgb 12.7(L) 13.0 - 17.5 g/dL [facility] Hct 38.7(L) 38.9 - 50.3 % [facility] Plt 255 150 - 400 K/cumm [facility] MPV 9.8 9.1 - 12.3 fL [facility] RBC 4.10(L) 4.30 - 5.80 M/cumm [facility] MCV 94.4 81.3 - 96.4 fL [facility] MCH 31.0 27.1 - 33.3 pg [facility] MCHC 32.8 32.3 - 35.7 g/dL [facility] RDW CV 12.9 11.1 - 14.9 % [facility] RDW SD 44.5 35.7 - 48.1 fL [facility] NRBC abs 0.00 0.00 - 0.01 K/cumm [facility] Blood 10/02/2024 4:01 PM [employer] 10/02/2024 4:17 PM [employer] James Robles MD LAB BLOOD ORDERABLES Final Resu [place] [address] * Phosphorus (10/02/2024 4:01 PM [employer]) [facility] Phosphorus, pl 2.4 2.3 - 4.5 mg/dL Blood 10/02/2024 4:01 PM [employer] 10/02/2024 4:17 PM [employer] James Robles MD LAB BLOOD ORDERABLES Final Resu lt Performing Organization Address [facility] Co de Phone Number [facility] [place] [address] * Magnesium (10/02/2024 4:01 PM [employer]) [facility] Magnesium 1.9 1.4 - 2.5 mg/dL Blood 10/02/2024 4:01 PM [employer] 10/02/2024 4:17 PM [employer] James Robles MD LAB BLOOD ORDERABLES Final Resu lt Performing Organization Address [facility] Co de Phone Number [facility] Department [place] [address] * (ABNORMAL) Comprehensive metabolic panel (10/02/2024 4:01 PM [employer]) [facility] Sodium 141 135 - 145 mmol/L Potassium, pl 4.2 3.3 - 4.9 mmol/L [facility] Chloride 112(H) 97 - 110 mmol/L [facility] CO2 22 22 - 32 mmol/L [facility] Anion gap 7 2 - 15 mmol/L [facility] BUN 16 6 - 25 mg/dL [facility] Creatinine 1.30 0.80 - 1.30 mg/dL [facility] Glucose 118 70 - 199 mg/dL [facility] Comment: Interpretive Data Fasting glucose [...] 2022. Calcium 8.3(L) 8.5 - 10.3 mg/dL [facility] Bilirubin, total 0.2 0.1 - 1.2 mg/dL [facility] Protein, pl 5.5(L) 6.5 - 8.5 g/dL [facility] Albumin 3.4(L) 3.5 - 5.0 g/dL [facility] Alk phos 64 40 - 130 Units/L [facility] ALT 19 7 - 55 Units/L [facility] AST 21 10 - 50 Units/L [facility] Blood 10/02/2024 4:01 PM [employer] 10/02/2024 4:17 PM [employer] us James Robles MD LAB BLOOD ORDERABLES Final Resu lt [facility] One [facility] Department [place] [address] * (ABNORMAL) POC Blood Gas and Chemistries, Arterial - (10/02/2024 2:30 PM [employer]) pH, Art POC 7.31(L) 7.35 - 7.45 pCO2, Art POC 41 35 - 45 mmHg [facility] pO2, Art POC 264(H) 83 - 108 mmHg [facility] Na, POC 140 135 - 145 mmol/L [facility] K POC 4.0 3.3 - 4.9 mmol/L [facility] Comment: Interpretive Data Not all point of care methods assess for hemolysis. Confirm with instrument and retest K+ if not consistent with clinical signs and symptoms. Current Interpretive Data was last revised on 2024. Cl, POC 111(H) 97 - 110 mmol/L [facility] Ionized Ca, POC 4.86 4.50 - 5.10 mg/dL [facility] Glucose, POC 104 70 - 199 mg/dL [facility] Lactate, POC 1.1 0.7 - 2.2 mmol/L [facility] SO2 (cas) arterial 100(H) 90 - 95 % [facility] Base excess, POC -5.4 mmol/L [facility] Hct, POC 37.0(L) 41.4 - 51.6 % [facility] Total Hb, POC 12.4(L) 13.8 - 17.2 g/dL [facility] Blood 10/02/2024 2:30 PM [employer] 10/02/2024 2:30 PM [employer] James Robles MD LAB POCT ORDERABLES - DEVICE Fi nal Result Performing Organization Address [facility]/ZIP Co de Phone Number [facility] One [facility] [place] [address] * FL Fluoroscopy < 1 Hour (10/02/2024 2:00 PM [employer]) Narrative [facility] - 10/03/2024 5:04 PM [employer] The images from this study are not interpreted by Radiology. ??Please refer to the physician's procedure / OR operative note. James Robles MD IMG FLUOROSCOPY PROCEDURES Cammy l Result Performing Organization Address City/[facility]/ZIP Co de Phone Number [facility] * (ABNORMAL) POC Blood Gas and Chemistries, Arterial - (10/02/2024 10:43 AM [employer]) pH, Art POC 7.32(L) 7.35 - 7.45 pCO2, Art POC 41 35 - 45 mmHg [facility] pO2, Art POC 239(H) 83 - 108 mmHg [facility] Na, POC 141 135 - 145 mmol/L [facility] K POC 4.0 3.3 - 4.9 mmol/L [facility] Comment: Interpretive Data Not all point of care methods assess for hemolysis. Confirm with instrument and retest K+ if not consistent with clinical signs and symptoms. Current Interpretive Data was last revised on 2024. Cl, POC 112(H) 97 - 110 mmol/L [facility] Ionized Ca, POC 4.92 4.50 - 5.10 mg/dL [facility] Glucose, POC 97 70 - 199 mg/dL [facility] Lactate, POC 1.0 0.7 - 2.2 mmol/L [facility] SO2 (cas) arterial 100(H) 90 - 95 % [facility] Base excess, POC -4.7 mmol/L [facility] Hct, POC 35.0(L) 41.4 - 51.6 % [facility] Total Hb, POC 11.8(L) 13.8 - 17.2 g/dL [facility] Blood 10/02/2024 10:4 3 AM [employer] 10/02/2024 10:43 AM [employer] us James Robles MD LAB POCT ORDERABLES - DEVICE Fi nal Result Performing Organization Address City/[facility]/ZIP Co de Phone Number [facility] [place] [address] * Type and screen (10/02/2024 6:18 AM [employer]) Ramu, indirect Negative ABO Rh B Negative [facility] Blood 10/02/2024 6:18 AM [employer] 10/02/2024 6:26 AM [employer] Narrative [facility] - 10/02/2024 7:28 AM [employer] Has the patient had Daratumumab or Isatuximab in the past 6 months?->Unknown us Sully Archer NP LAB BLOOD BANK TEST ORDER TALYA Final Result Performing Organization Address City/[facility]/ZIP Co de Phone Number [facility] [place] [address] documented in this encounter Visit Diagnoses Diagnosis [...] & Post-op Floor Given 10/14/2024 9:52 AM [employer] 1,000 mg Given 10/13/2024 6:47 PM [employer] 1,000 mg Given 10/13/2024 1:03 AM [employer] 1,000 mg apixaban (ELIQUIS) tablet 5 mg 5 mg, oral, Every 12 hours scheduled, First dose on Wed10/13/24 at 2100, Nurse to discontinue heparin infusion order at first administration of apixaban using 'order condition met' order source, Indications: Venous ThrombosisIndications:Venous Thrombosis Given 10/14/2024 9: 51 AM [employer] 5 mg Given 10/13/2024 9:02 PM [employer] 5 mg baclofen (LIORESAL) tablet 10 mg 10 mg, oral, 2 times daily, First dose on Wed10/02/24 at 1730, Phase I & Post-op Floor, Indications: Muscle Spasticity of Spinal OriginIndications:Muscle Spasticity of Spinal Origin Given 10/14/2024 9:52 AM [employer] 10 mg Given 10/13/2024 9:02 PM [employer] 10 mg Given 10/13/2024 9:44 AM [employer] 10 mg bisacodyL (DULCOLAX) suppository 10 mg [...] Stool SoftenerIndications:constipation,Stool Softener Given 10/13/2024 9:02 PM [employer] 100 mg Given 10/12/2024 8:59 AM [employer] 100 mg Given 10/11/2024 8:46 PM [employer] [address] (CYMBALTA) extended release capsule 30 mg 30 mg, oral, 2 times daily, First dose on Wed10/02/24 at 2100, Phase I & Post-op Floor, Capsule may be opened and contents mixed with applesauce or apple juice ONLY. Do not crush or chew capsule, Indications: Neuropathic PainIndications:Neuropathic Pain Given 10/14/2024 9:51 AM [employer] 30 mg Given 10/13/2024 9:02 PM [employer] 30 mg Given 10/13/2024 9:45 AM [employer] 30 mg famotidine (PEPCID) tablet 20 mg 20 mg, oral, Every 12 hours scheduled, First dose on Wed10/02/24 at 2100, Phase I & Post-op Floor, If able to swallow tablets., Indications: Prevention of Stress UlcerIndications:Prevention of Stress Ulcer Given 10/14/2024 9:52 AM [employer] 20 mg Given 10/13/2024 9:02 PM [employer] 20 mg Given 10/13/2024 9:45 AM [employer] 20 mg finasteride (PROSCAR) tablet 5 mg 5 mg, oral, Every morning, First dose on Wed10/03/24 at 0900, Do not crush, break, or open., Indications: benign prostatic hyperplasia with lower urinary tract sxIndications:benign prostatic hyperplasia with lower urinary tract sx Given 10/14/2024 9:51 AM [employer] 5 mg Given 10/13/2024 9:45 AM [employer] 5 mg Given 10/12/2024 8:59 AM [employer] 5 mg oxyCODONE (ROXICODONE) tablet 5 mg 5 mg, oral, Every 4 hours PRN, 2nd line for pain, Starting on Wed10/02/24 at 1933, Phase I & Post-op Floor, May repeat in 1 hour if pain is uncontrolled or increasing. Max 2 doses within 1 dosing interval., Indications: PainIndications:Pain Given 10/14/2024 1:41 PM [employer] 5 mg Given 10/14/2024 9:52 AM [employer] 5 mg Given 10/14/2024 6:16 AM [employer] 5 mg polyethylene glycol (MIRALAX) packet 17 g 17 g, oral, Daily, First dose on Wed10/02/24 at 2015, Phase I & Post-op Floor, Hold for diarrhea., Indications: constipationIndications:constipation Given 10/12/2024 8:58 AM [employer] 17 g Given 10/11/2024 8:47 AM [employer] 17 g Given 10/10/2024 8:00 AM [employer] 17 g senna (SENOKOT) tablet 1 tablet 1 tablet, oral, 2 times daily, First dose on Wed10/02/24 at 2100, Phase I & Post-op Floor, If able to swallow tablets. Hold for diarrhea., Indications: constipationIndications:constipation Given 10/13/2024 9:02 PM [employer] 1 table t Given 10/12/2024 8:59 AM [employer] 1 tablet Given 10/11/2024 8:46 PM [employer] 1 tablet sodium chloride 0.9% flush 0.5-20 mL 0.5-20 mL, intra-catheter, As needed, line care, Starting on Wed10/02/24 at 1933, Flush volume based on line type and size. Flush before and after each use. , Indications: FlushingIndications:Flushing Given 10/10/2024 8:06 PM [employer] 10 mL sodium chloride 0.9% irrigation As needed, Starting on Wed10/02/24 at 1121, Intra-Op Given 10/02/2024 11:21 AM [employer] 1,000 mL tamsulosin (FLOMAX) extended release capsule 0.4 mg 0.4 mg, oral, Daily with dinner, First dose on Wed10/09/24 at 0715, Do not crush, chew, cut, dissolve, open or otherwise manipulate tablet/capsule. Given 10/13/2024 6:47 PM [employer] 0.4 mg Given 10/12/2024 5:13 PM [employer] 0.4 mg Given 10/11/2024 5:57 PM [employer] 0.4 mg thrombin-recombinant 5,000 unit topical solution As needed, Starting on Wed10/02/24 at 0930, Intra-Op Given 10/02/2024 9:30 AM [employer] 5,000 Units documented in this encounter Discontinued [...] Recently Administered Medications Times are shown in [employer]. Scheduled Medication Order 10/12/2024 10/13/2024 10/14/2024 apixaban [...] refused) 0900 (Not Given - Provider: Roslyn Floey RN - Reason: Patient/family refused) docusate sodium [...] COVID: Suspected 10/04/2024 10/04/2024 10/04/2024 11:18 AM [employer] documented as of this encounter Care Teams Construction Recruiter Relationship Specialty Start Date End Date Sj Benson MD [address] [place] [address] PCP - General Family Medicine 07/05/24 documented as of this encounter
--- OUTSIDE RECORDS SUMMARY | 2024-11-16 21:30 | XMS_ITS | Encounter Summary ---
Author Organization [facility] Facility Care Team Providers Care Inspector Fuel Hose Name Role Phone Unavailable Primary Care Provider Unavailabl e Encounter Details Date Type Department Care Team (Late st Contact Info) Description 02/20/2008 - 02/20/2008 11:59 PM CDT Hospital [facility] [address] [place] [address] Social History Tobacco Use Types Packs/Day Years Used Date Smoking Tobacco: Never Assessed Sex and Gender Information Value Date Recorded Sex Assigned at Not on file Legal Sex Male 12:23 PM [employer] Gender Identity Not on file Sexual Orientation Not on file documented as of this encounter Plan of Treatment Not on file documented as of this encounter Visit Diagnoses Not on filedocumented in this encounter
--- OUTSIDE RECORDS SUMMARY | 2024-11-16 21:30 | XMS_ITS | Encounter Summary ---
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 After hours call [phone], ask for the diagnostic neuroradiologist final operations technician) documented in this encounter Medications at Time [...] Brief Post Procedure Note Attending: Dr. Miller Fire Behavior Analyst: Dr. Tovar Sedation/Anesthesia: Local Pre-Op/Pre-Procedure Diagnosis: Thoracic [...] and [address] Burroughs (president of the [place]) was present and participated in the procedure. [...] and [address] Burroughs (president of the [place]) was present and participated in the procedure. [...] 07/21/2024 documented in this encounter Care Teams Carding Doubler Relationship Specialty Start Date End Date Sj Benson MD [address] [facility] [place] [address] PCP - General Family Medicine 07/05/24 documented as of this encounter
--- OUTSIDE RECORDS SUMMARY | 2024-11-16 21:30 | XMS_ITS | Encounter Summary ---
Author Organization [facility] Healthcare Address [address] [place] [address] Care Team Providers Care Dredge Worker Name Role Phone Sj Benson MD Primary Care Provider [phone] Reason for Visit * MRI/CAT/PET Scan (Routine) - Closed Specialty Diagnoses / Procedures Referred By Contac t Referred To Contact Procedures Neuro MR Outside Reference Neftaly Goetz, JOSE [address] [facility] [address] [place] [address] Phone: tel: fax: Referral ID Status Reason Start Date Expiration Date Visits Re quested Visits Authorized [id number] Closed 07/13/2024 08/12/2025 1 1 Encounter Details Date Type Department Care Team (Latest Contact Info) Description 07/13/2024 10:20 PM CDT - 07/13/2024 11:59 PM CDT Hospital Encounter [facility]) [address] [place] [id number] Discharge Disposition: Discharge to home or self [...] on file 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 ??There will be no report generated by a [facility] Radiologist. Narrative [facility] - 07/13/2024 10:20 PM CDT EXAMINATION: ??Images For Reference Purposes Only us Neftaly Goetz NP IMG MRI PROCEDURES Final Result [facility] documented in this encounter Visit Diagnoses Not on filedocumented in this encounter Care Teams Dredge Worker Relationship Specialty Start Date End Date Sj Benson MD [address] [place] [address] [place] [address] PCP - General Family Medicine 07/05/24 documented as of this encounter
--- OUTSIDE RECORDS SUMMARY | 2024-11-16 21:30 | XMS_ITS | Encounter Summary ---
Author Organization [facility] Healthcare Address [address] [place] [address] Care Team Providers Care Tugboat Engineer Name Role Phone Sj Benson MD Primary Care Provider [phone] Reason for Visit * MRI/CAT/PET Scan (Routine) - Closed Specialty Diagnoses / Procedures Referred By Contac t Referred To Contact Procedures Neuro MR Outside Reference James Robles MD [address] [facility] [address] [place] [address] Phone: tel: fax: Referral ID Status Reason Start Date Expiration Date Visits Re quested Visits Authorized [id number] Closed 07/11/2024 08/10/2025 1 1 Encounter Details Date Type Department Care Team (Latest Contact Info) Description 07/11/2024 6:23 PM CDT - 07/11/2024 11:59 PM CDT Hospital Encounter [facility] (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 ??There will be no report generated by a [facility] Radiologist. Narrative RAD_PACS[facility] - 07/11/2024 6:23 PM CDT EXAMINATION: ??Images For Reference Purposes Only us James Robles MD IMG MRI PROCEDURES Final Result [facility] documented in this encounter Visit Diagnoses Not on filedocumented in this encounter Care Teams Tugboat Engineer Relationship Specialty Start Date End Date Sj Benson MD [address] [facility] [place] [address] PCP - General Family Medicine 07/05/24 documented as of this encounter
--- OUTSIDE RECORDS SUMMARY | 2024-11-16 21:30 | XMS_ITS | Encounter Summary ---
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
--- OUTSIDE RECORDS SUMMARY | 2024-11-16 21:30 | XMS_ITS | Encounter Summary ---
Author Organization [facility] Healthcare Address [address] [place] [address] Care Team Providers Care Rug Cutter Name Role Phone Sj Benson MD Primary Care Provider [phone] Reason for Visit * MRI/CAT/PET Scan (Routine) - Closed Specialty Diagnoses / Procedures Referred By Contac t Referred To Contact Procedures Neuro MR Outside Reference James Robles MD [address] [facility] [address] [place] [address] Phone: tel: fax: Referral ID Status Reason Start Date Expiration Date Visits Re quested Visits Authorized [id number] Closed 07/11/2024 08/10/2025 1 1 Encounter Details Date Type Department Care Team (Latest Contact Info) Description 07/11/2024 6:31 PM CDT - 07/11/2024 11:59 PM CDT Hospital Encounter [facility] ([facility]) [address] [place] [address] Discharge Disposition: Discharge to home or [...] on file 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 [place] [address] PCP - General Family Medicine 07/05/24 documented as of this encounter
--- OUTSIDE RECORDS SUMMARY | 2024-11-16 21:30 | XMS_ITS | Encounter Summary ---
Author Organization [facility] Facility Care Team Providers Care Portfolio Management Marketing Name Role Phone Unavailable Primary Care Provider Unavailabl e Encounter Details Date Type Department Care Team (Late st Contact Info) Description 05/10/2008 9:23 AM CDT - 05/10/2008 4:00 PM CDT Hospital Encounter [facility] Hanna Nicole MD [address] [place] [address] [address] [id number] Social History Tobacco Use Types Packs/Day Years Used Date Smoking Tobacco: Never Assessed Sex and Gender Information Value Date Recorded Sex Assigned at Not on file 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
--- OUTSIDE RECORDS SUMMARY | 2024-11-16 21:30 | XMS_ITS | Encounter Summary ---
Author Organization [facility] Facility Care Team Providers Care Bending Roll Operator Name Role Phone Unavailable Primary Care Provider Unavailabl e Encounter Details Date Type Department Care Team (Late st Contact Info) Description 02/08/2008 - 02/08/2008 11:59 PM CDT Hospital Encounter [facility] Hanna Nicole MD [address] [place] [address] 9 [place] [address] Pain in joint, shoulder region Social History Tobacco Use Types Packs/Day Years Used Date Smoking Tobacco: Never Assessed Sex and Gender Information Value Date Recorded Sex Assigned at Not on file 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
--- OUTSIDE RECORDS SUMMARY | 2024-11-16 21:30 | XMS_ITS | Encounter Summary ---
Author Organization [facility] Facility Care Team Providers Care Technical Trainer Name Role Phone Unavailable Primary Care Provider Unavailabl e Encounter Details Date Type Department Care Team (Late st Contact Info) Description 06/11/2009 - 06/11/2009 11:59 PM CDT Hospital Encounter [facility] Feliciano Fraser MD [address] [place] [address] DR DEPT NEUROSURGERY, [place] [address] Degeneration of cervical intervertebral disc Social History Tobacco Use Types Packs/Day Years Used Date Smoking Tobacco: Never Assessed Sex and Gender Information Value Date Recorded Sex Assigned at Not on file 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
--- OUTSIDE RECORDS SUMMARY | 2024-11-16 21:30 | XMS_ITS | Encounter Summary ---
Author Organization [facility] Healthcare Address [address] [place] [address] Care Team Providers Care Blow Down Operator Name Role Phone Sj Benson MD Primary Care Provider Encounter Details Date Type Department Care Team (Late st Contact Info) Description 09/13/2024 10:05 AM CDT Lab [address] [place], [place] [id number] Preoperative testing; Thoracic myelopathy Social History Tobacco [...] on file Legal Sex Male 12:23 PM UC ARCHITECT Gender Identity Not on file Sexual [...] * (ABNORMAL) eGFR (09/13/2024 11:37 AM CDT) [facility] Signature eGFR 46(L) >=60 mL/min/1. [...] ORDERABLES Final Resu lt Performing Organization Address [facility] Co de Phone Number [facility] Department [place] [address] * (ABNORMAL) Urinalysis, microscopic only (09/13/2024 11:37 AM CDT) WBC, ur 6-10(A) 0 - 5 /HPF RBC, ur 21-50(A) 0 - 2 /HPF [facility] Epithelial cells, squamous, ur 1-5 0 - 5 /HPF [facility] Mucous, ur Present(A) [facility] Culture Reflex Comment Reflex conditions for urine culture (WBC >10) not met. [facility] Urine, clean voided 09/13/2024 11:37 AM CDT 09/13/2024 1:37 PM CDT James Robles MD LAB URINE ORDERABLES Final Resu lt Performing Organization Address [facility] Co de Phone Number [facility] Department [place] [address] * (ABNORMAL) Differential, auto (09/13/2024 11:37 AM CDT) Neutrophil abs 6.9(H) 1.5 - 6.5 K/cumm Imm gran abs 0.1 0.0 - 0.1 K/cumm [facility] Lymphocyte abs 2.2 0.8 - 3.3 K/cumm [facility] Monocyte abs 1.2(H) 0.2 - 0.8 K/cumm [facility] Eosinophil abs 0.1 0.0 - 0.5 K/cumm [facility] Basophil abs 0.0 0.0 - 0.1 K/cumm [facility] Neutrophil pct 66.1 % [facility] Comment: Interpretive Data Percent cell count reference ranges are not reported, since discordance with absolute values may lead to misinterpretation of CBC data. Current Interpretive Data was last revised on 2018. Imm gran pct 0.5 % [facility] Comment: Interpretive Data Percent cell count reference ranges are not reported, since discordance with absolute values may lead to misinterpretation of CBC data. Current Interpretive Data was last revised on 2018. Lymphocyte pct 20.7 % [facility] Comment: Interpretive Data Percent cell count reference ranges are not reported, since discordance with absolute values may lead to misinterpretation of CBC data. Current Interpretive Data was last revised on 2018. Monocyte pct 11.8 % [facility] Comment: Interpretive Data Percent cell count reference ranges are not reported, since discordance with absolute values may lead to misinterpretation of CBC data. Current Interpretive Data was last revised on 2018. Eosinophil pct 0.5 % [facility] Comment: Interpretive Data Percent cell count reference ranges are not reported, since discordance with absolute values may lead to misinterpretation of CBC data. Current Interpretive Data was last revised on 2018. Basophil pct 0.4 % [facility] Comment: Interpretive Data Percent cell count reference ranges are not reported, since discordance with absolute values may lead to misinterpretation of CBC data. Current Interpretive Data was last revised on 2018. Blood 09/13/2024 11:3 7 AM CDT 09/13/2024 1:36 PM CDT us James Robles MD LAB BLOOD ORDERABLES Final Resu lt [facility] Department [place] [address] * (ABNORMAL) Basic metabolic panel (09/13/2024 11:37 AM CDT) Sodium 144 135 - 145 mmol/L Potassium, pl 3.8 3.3 - 4.9 mmol/L [facility] Chloride 105 97 - 110 mmol/L [facility] CO2 25 22 - 32 mmol/L [facility] Anion gap 14 2 - 15 mmol/L [facility] BUN 16 6 - 25 mg/dL [facility] Creatinine 1.55(H) 0.80 - 1.30 mg/dL [facility] Glucose 67(L) 70 - 199 mg/dL [facility] Comment: Interpretive Data Fasting glucose >/= 126 [...] 2022. Calcium 9.9 8.5 - 10.3 mg/dL [facility] Blood 09/13/2024 11:3 7 AM CDT 09/13/2024 1:34 PM CDT James Robles MD LAB BLOOD ORDERABLES Final Resu lt [facility] Department [place] [address] * Vitamin D 25 hydroxy (09/13/2024 11:37 AM CDT) Vitamin D 25-OH 30 30 - 80 ng/mL Blood 09/13/2024 11:3 7 AM CDT 09/13/2024 1:34 PM CDT James Robles MD LAB BLOOD ORDERABLES Final Resu lt Performing Organization Address City/[facility]/ZIP Co de Phone Number [facility] [place] [address] * (ABNORMAL) CBC with auto differential (09/13/2024 11:37 AM CDT) WBC 10.4(H) 3.8 - 9.9 K/cumm Hgb 14.0 13.0 - 17.5 g/dL [facility] Hct 42.7 38.9 - 50.3 % [facility] Plt 254 150 - 400 K/cumm [facility] MPV 10.5 9.1 - 12.3 fL [facility] RBC 4.47 4.30 - 5.80 M/cumm [facility] MCV 95.5 81.3 - 96.4 fL [facility] MCH 31.3 27.1 - 33.3 pg [facility] MCHC 32.8 32.3 - 35.7 g/dL [facility] RDW CV 12.7 11.1 - 14.9 % [facility] RDW SD 44.9 35.7 - 48.1 fL [facility] NRBC abs 0.00 0.00 - 0.01 K/cumm [facility] Blood 09/13/2024 11:3 7 AM CDT 09/13/2024 1:36 PM CDT James Robles MD LAB BLOOD ORDERABLES Final Resu lt [facility] [place] [address] * Protime-INR (09/13/2024 11:37 AM CDT) PT 11.0 9.7 - 13.0 sec INR 1.02 0.90 - 1.20 [facility] Comment: Interpretive data Oral anticoagulant therapeutic ranges: Venous thromboembolism prophylaxis or treatment: 2.0-3.0 CARDIOLOGY Standard range: 2.0-3.0 High-intensity range: 2.5-3.5 Refer to indication-specific guidelines for appropriate target ranges for prosthetic heart valve replacement. Current interpretive data was last revised on 2019. Blood 09/13/2024 11:3 7 AM CDT 09/13/2024 1:35 PM CDT James Robles MD LAB BLOOD ORDERABLES Final Resu lt Performing Organization Address [facility] de Phone Number [facility] Department [place] [address] * aPTT (09/13/2024 11:37 AM CDT) aPTT [...] ORDERABLES Final Resu lt Performing Organization Address [facility] de Phone Number [facility] [place] [address] * (ABNORMAL) Urinalysis reflex to microscopic and culture Urine, clean voided (09/13/2024 11:37 AM CDT) Color, ur Straw Yellow Clarity, ur Clear Clear [facility] Specific gravity, ur 1.016 1.003 - 1.030 [facility] pH, urine 5.5 [facility] Comment: Interpretive Data ? Urine pH is affected by diet, medications, systemic acid-base disturbances, and renal tubular function. ??pH may affect urinary stone formation. ??For example, urine pH below 6.0 may help reduce the tendency for calcium phosphate stones and pH greater than 6.0 may reduce the tendency for uric acid stone formation. Source: [facility] Current Interpretive Data was last revised on 2017 Protein, ur ql Trace Negative [facility] Glucose, ur ql Negative Negative [facility] Ketones, ur Negative Negative [facility] Bilirubin, ur Negative Negative [facility] Blood, ur 1+(A) Negative [facility] Urobilinogen, ur <2.0 <2.0 mg/dL [facility] Nitrite, ur Negative Negative [facility] Leukocyte esterase, ur Negative Negative [facility] UA reflex comment Reflex to microscopic UA will be performed. [facility] Urine, clean voided 09/13/2024 11:37 AM CDT 09/13/2024 1:37 PM CDT us James Robles MD LAB MICROBIOLOGY - GENERAL RAYMOND JEFFERY Final Result Performing Organization Address City/[facility]/ZIP Co de Phone Number [facility] Department [place] [address] * TYPE AND SCREEN 14 DAY (09/13/2024 11:37 AM CDT) ABO Rh B Negative Ramu, indirect Negative [facility] Blood 09/13/2024 11:3 7 AM CDT 09/13/2024 1:50 PM CDT Narrative [facility] - 09/13/2024 3:22 PM CDT Has the patient had Daratumumab or Isatuximab in the past 6 months?->Unknown Is this test being ordered in advance for a procedure?->Yes Expected date of procedure:->10/02/24 Has the patient been transfused in the past 3 months?->No us Sully Archer NP LAB BLOOD BANK TEST ORDER TALYA Final Result Performing Organization Address City/[facility]/ZIP Co de Phone Number [facility] Department [place] [address] * CPAP aPTT algorithm (09/13/2024 11:37 AM CDT) aPTT 30 28 - 38 sec Comment: Interpretive Data Heparin therapeutic range: 66.0 - 100.0 seconds. Range based on correlation with therapeutic heparin activity range of 0.3 - 0.7 Units/mL. Current interpretive data was last revised on 2023. Blood 09/13/2024 11:3 7 AM CDT 09/13/2024 1:35 PM CDT us Sully Archer FURNACE PACKER LAB BLOOD ORDERABLES Cammy ramos Result [facility] Department [place] [address] documented in this encounter Visit Diagnoses Diagnosis Preoperative testing Unspecified pre-operative examination 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 Care Teams Blow Down Operator Relationship Specialty Start Date End Date Sj Benson MD [address] [facility] [place] [address] PCP - General Family Medicine 07/05/24 documented as of this encounter
--- OUTSIDE RECORDS SUMMARY | 2024-11-16 21:30 | XMS_ITS | Encounter Summary ---
Author Organization [facility] Address [address] [facility] [address] [place] [address] Phone Care Team Providers Care Supervisor Waterworks Name Role Phone Sj Benson MD Primary Care Provider [phone] Encounter Details Date Type Department Care Team (Late st Contact Info) Description 07/26/2024 Telephone [facility] Neurosurgery [address] [facility] Medical Office Building [address] [place] [address] James Robles MD [address] [place] [address] Social History Tobacco Use Types [...] on file 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 Gender Identity Not on file Sexual Orientation [...] sent to specialist: []Yes []NO [x]N/A On [place] Spreadsheet: [x]Yes []NO * Telephone Encounter - [...] packet status: []In progress [x]Scanned by front facer Notes/Other: * Telephone Encounter - Abbie Selby CMA - 07/28/2024 3:39 PM CDT [place] SURGERY SCHEDULING CHECK LIST Visit Type: [] TELEMED [x] IN CLINIC Nurse Education done in Clinic: [] YES [x] NO LOCATION: [x] [facility] Surgery Name: T3-T5 Posterior Spinal Fusion [...] [] Order entered []Audiogram [] Order entered ([phone] [facility] 11th floor [address]) [x]N/A [...] on filedocumented in this encounter Care Teams Supervisor Waterworks Relationship Specialty Start Date End Date Sj Benson MD [address] [facility] [place] [address] PCP - General Family Medicine 07/05/24 documented as of this encounter
--- OUTSIDE RECORDS SUMMARY | 2024-11-16 21:30 | XMS_ITS | Encounter Summary ---
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 * Telephone Encounter - Abbie Selby CMA - 07/11/2024 2:15 PM CDT Spoke with [facility] to f/u on imaging as we have [...] - 07/10/2024 3:37 PM CDT Spoke with [facility] to request MRI Cervical imaging. They are to push imaging via powershare. Recall set to f/u on imaging prior to appt. * Telephone Encounter - Simona Monte - 07/10/2024 11:11 AM CDT BL - R/s for Neftaly HALE - 07/19/2024 to 07/12/2024 - 1st ATTEMPT - spoke w/Pt. Reason for visit: New Pt Appt Date: 07/12/2024 Time: 1.15pm Location: [facility] ([facility]) Provider BUSINESS INFO CONSULTANT - Neftaly Hale Routed: Directly to BUSINESS INFO CONSULTANT Send Letter to PCP for Insurance Auth: [...] AM CDT Department of Neurological Surgery at [facility] Spine Intake 07/05/24 Ryan F Thus 1950 [id number] Unknown, Notinfile Are you a New or [...] Imaging Done within Last Year: Yes Location: [facility] PH FAX [phone] Records Requested: Yes . HT: 6ft WT: 214 BMI: 29.0 Weakness: Yes Can't walk very far Numbness: Yes Left leg and feet Spinal Pain: lower back left knee Loss of bowel or bladder control: No Reports looseness Duration of symptoms: 18 years Spine surgery - within last 10 years: Yes Location: [facility] PH FAX [phone] Records Requested: Yes Physical therapy within last year Yes Location: [facility] PH FAX [phone] Records Requested: Yes Pain Management (Injections) within last year No Are you a current smoker on nicotine: No Reason for visit: New Pt Appt Date: 07/19/24 Time: 11:45am Location: [facility] ([facility]) Provider JOSE - Neftaly Hale Routed: Directly to BUSINESS INFO CONSULTANT Review: Remind pt to arrive 45 min [...] on filedocumented in this encounter Care Teams Milking Worker Relationship Specialty Start Date End Date Sj Benson MD [address] [facility] [place] [address] PCP - General Family Medicine 07/05/24 documented as of this encounter
--- OUTSIDE RECORDS SUMMARY | 2024-11-16 21:30 | XMS_ITS | Encounter Summary ---
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
--- OUTSIDE RECORDS SUMMARY | 2024-11-16 21:30 | XMS_ITS | Encounter Summary ---
Author Organization [facility] Address [address] [place] [address] Phone Care Team Providers Care Coverstitch Machine Operator Name Role Phone Sj Benson MD Primary Care Provider [phone] Encounter Details Date Type Department Care Team (Late st Contact Info) Description 07/26/2024 8:45 AM CDT Office Visit 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 Wills, [facility]) - Lower back surgery - [...] Primary documented in this encounter Care Teams Coverstitch Machine Operator Relationship Specialty Start Date End Date Sj Benson MD [address] [facility] [place] [address] PCP - General Family Medicine 07/05/24 documented as of this encounter
--- OUTSIDE RECORDS SUMMARY | 2024-11-16 21:30 | XMS_ITS | Encounter Summary ---
Author Organization [facility] Address [address] [place] [address] Care Team Providers Care Hard Rock Drill Operator Name Role Phone Sj Benson MD Primary Care Provider [phone] Reason for Referral * Diagnostic Imaging (Routine) - Closed Specialty Diagnoses / Procedures Referred By Contac t Referred To Contact Diagnoses Low back pain, non-specific Procedures XR Scoliosis 6 or More Views Neftaly Goetz NP [address] [place] [address] Phone: tel: fax: [place] [address] [place] [address] Referral ID Status Reason Start Date Expiration Date Visits Re quested Visits Authorized [id number] Closed 07/10/2024 08/09/2025 1 1 Reason for Visit * Diagnostic Imaging (Routine) - Closed Specialty Diagnoses / Procedures Referred By Contac t Referred To Contact Diagnoses Low back pain, non-specific Procedures XR Scoliosis 6 or More Views Neftaly Goetz NP [address] [place] [address] Phone: tel: fax: [place] [address] [place] [id number] Referral ID Status Reason Start Date Expiration Date Visits Re quested Visits Authorized [id number] Closed 07/10/2024 08/09/2025 1 1 Encounter Details Date Type Department Care Team (Latest Contact Info) Description 07/12/2024 12:25 PM CDT - 07/12/2024 11:59 PM CDT Hospital Encounter [id number] [address] [facility] [address] [place] [address] Low back pain, non-specific Discharge Disposition: Discharge [...] on file 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
--- OUTSIDE RECORDS SUMMARY | 2024-11-16 21:30 | XMS_ITS | Encounter Summary ---
Author Organization [facility] Healthcare Address [address] [place] [address] Care Team Providers Care Insurance Service Representative Name Role Phone Sj Benson MD Primary Care Provider Reason for Referral * MRI/CAT/PET Scan (Routine) - Closed Specialty Diagnoses / Procedures Referred By Hector t Referred To Contact Radiology Diagnoses Thoracic myelopathy Procedures CT Post Myelogram 3 Levels James Robles MD [address] [place] [address] Phone: tel: fax: [address] [phone] Referral ID Status Reason Start Date Expiration Date Visits Re quested Visits Authorized [id number] Closed 07/14/2024 08/13/2025 1 1 Reason for Visit * MRI/CAT/PET Scan (Routine) - Closed Specialty Diagnoses / Procedures Referred By Contac t Referred To Contact Radiology Diagnoses Thoracic myelopathy Procedures CT Post Myelogram 3 Levels James Robles MD [address] [place] [address] Phone: tel: fax: [address] [phone] Referral ID Status Reason Start Date Expiration Date Visits Re quested Visits Authorized [id number] Closed 07/14/2024 08/13/2025 1 1 Encounter Details Date Type Department Care Team (Latest Contact Info) Description 07/21/2024 6:56 AM CDT - 07/21/2024 11:59 PM CDT Hospital Encounter [facility] Radiology [address] [facility] [place] [address] James Robles MD [address] [place] [address] Thoracic myelopathy Discharge Disposition: Discharge to home [...] on file 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 Burroughs (bank president) was present and participated in the [...] and [address] Burroughs (bank president) was present and participated in the [...] myelopathy documented in this encounter Care Teams Insurance Service Representative Relationship Specialty Start Date End Date Sj Benson MD [address] [facility] [place] [address] PCP - General Family Medicine 07/05/24 documented as of this encounter
--- OUTSIDE RECORDS SUMMARY | 2024-11-16 21:32 | XMS_ITS ---
Author Organization [facility] Address [address] [place] [address] Care Team Providers Care Salvage Mechanic Name Role Phone Sj Benson Primary Care Provider Dr. Shay Joseph Unavailable [phone] ZZ-Migration, Provider Unavailable Unavailab le Allergies Allergen (clinical drug ingredient) Drug/Non Drug Allergy documented on EMR Reaction Allergy Type Onset Date Status Substance with sulfonamide structure and antibacterial mechanism of action (substance) SULFONAMIDES (uncoded) Unknown Allergy Activ e REASON FOR VISIT [facility] To [facility] Conversion Encounter Medications Medication SIG (Take, Route, [...] Active Encounters Encounter Location Date Provider Diagnosis [facility] [address] [place] [address] 05/06/2024 Provider ZZ-Migration Plan Of Treatment No Information Progress Notes * THUS, RyanDOB:1950 ([age] yo M)Acc No.[id number]:05/06/2024 Patient:?Ryan DELGADO Provider:?Provider Migration :1950???Age:73 Y???Sex:Male Cody e:05/06/2024 [id number] Pcp:Sj Benson Subjective: * Chief Complaints: * [...] * Electronic signature of Clay AriasZ-Migration on 11/16/2024 at 09:32 PM DIVER TENDER Sign off status: Pending * Provider:?Provider Migration Date:?05/06 Generated for Sarahi chaudhry/Adryan/eTransmitting on:?11/16/2024 09:32 PM DIVER TENDER
--- OUTSIDE RECORDS SUMMARY | 2024-11-16 21:32 | XMS_ITS | Data Portability ---
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 Cont f/u with GI at [facility] as per schedule. Cont f/u with Uro at [facility] as per schedule. Cont f/u with Pain clinic at [facility] as per schedule. Cont f/u with Ortho as per schedule. Cont f/u with Spine surgeon at [facility] as per schedule. Cont f/u with Derm [...] in 3-6 months. Annual labs in 11/13. [email or web address] Not available 05/17/2023 12:36:35 10/25/2023 10/25/2023 73 [...] understanding it. Cont f/u with GI at [facility] as per schedule. Cont f/u with Uro at [facility] as per schedule. Cont f/u with Pain clinic at [facility] as per schedule. Cont f/u with Ortho as per schedule. Cont f/u with Spine surgeon at [facility] as per schedule. Cont f/u with Derm [...] in 2-3 weeks. Annual labs in 11/14. [email or web address] Not available 10/25/2023 10:16:20 11/10/2023 11/10/2023 73 [...] understanding it. Cont f/u with GI at [facility] as per schedule. Cont f/u with Uro at [facility] as per schedule. Cont f/u with Pain clinic at [facility] as per schedule. Cont f/u with Ortho as per schedule. Cont f/u with Spine surgeon at [facility] as per schedule. Cont f/u with Derm [...] in 4-6 months. Annual labs in 11/14. [email or web address] Not available 11/10/2023 10:33:39 04/10/2024 04/10/2024 73 [...] understanding it. Cont f/u with GI at [facility] as per schedule. Cont f/u with Uro at [facility] as per schedule. Cont f/u with Pain clinic at [facility] as per schedule. Cont f/u with Ortho as per schedule. Cont f/u with Spine surgeon at [facility] as per schedule. Cont f/u with Derm [...] in 6 months. Annual labs in 11/14. [email or web address] Not available 04/10/2024 11:11:19 05/16/2024 05/16/2024 73 [...] understanding it. Cont f/u with GI at [facility] as per schedule. Cont f/u with Uro at [facility] as per schedule. Cont f/u with Pain clinic at [facility] as per schedule. Cont f/u with Ortho as per schedule. Cont f/u with Spine surgeon at [facility] as per schedule. Cont f/u with Derm [...] ED provider's recommendations. Annual labs in 11/14. [email or web address] Not available 05/16/2024 14:56:42 Plan of Treatment Reminders Order Date Submit Date Provider Last Modified By Organization Details Last Modified Time Details Appointments Hospital Follow Up 2024 11:30A M Sj Benson MD Not available Not available Not available Lab urinalysi s complete, reflex culture 2022 023 [facility] (Lab), [address] [place], [address], 10/25/2023 16:32:29 glycohemo globin, total, blood 2022 023 [facility] (Lab), [address] [facility] [place], [address], 10/25/2023 16:02:18 CMP, serum or plasma 2022 023 [facility] (Lab), [address] [facility] [place], [address], 10/25/2023 15:05:02 TSH, serum or plasma 2022 023 [facility] (Lab), [address] [facility] [place], [address], 10/25/2023 15:29:22 lipid panel, serum 2022 023 [facility] (Lab), [address] [facility] [place], [address], 10/25/2023 15:05:04 PSA, serum or plasma 2022 023 [email or web address] [facility] (Lab), [address] [facility] [place], [address], 11/01/2023 14:24:51 vitamin B12 + folate, serum or blood 2022 023 [email or web address] [facility] (Lab), [address] [place], [address], 11/01/2023 14:24:31 vitamin D, 25-hydrox y, total, serum 2022 023 [email or web address] [facility] (Lab), [address] [place], [address], 11/01/2023 14:24:42 CBC w/ auto diff 2022 023 [facility] (Lab), [address] [place], [address], 10/25/2023 14:55:41 Referral None recorded. Procedures None recorded. Surgeries None recorded. Imaging None recorded. Medication Orders hyoscyami ne 0.125 mg sublingua l tablet 2022 023 [facility] #[id number], [address], [place], [id number], 05/17/2023 12:00:15 duloxetin e 30 mg capsule,d elayed release 2022 023 [facility] #14651, [address], [place], [id number], 05/17/2023 11:55:52 hyoscyami ne 0.125 mg sublingua l tablet 2022 023 [facility] #96898, [address], [place], [id number], 10/25/2023 10:03:17 tamsulosi n 0.4 mg capsule 2022 023 [facility] #19185, [address], [place], [id number], 10/25/2023 10:07:24 duloxetin e 30 mg capsule,d elayed release 2022 023 [facility] #42052, [address], [place], [id number], 10/25/2023 10:03:17 hyoscyami ne 0.125 mg sublingua l tablet 2022 023 [facility] #29876, [address] [place], [place], [id number], 11/10/2023 10:19:08 tamsulosi n 0.4 mg capsule 2022 023 [facility] #13981, [address], [place], [id number], 11/10/2023 10:19:08 duloxetin e 30 mg capsule,d elayed release 2022 023 [facility] #46711, [address], [place], [id number], 11/10/2023 10:19:09 cephalexi n 500 mg capsule [email or web address] [facility]77846, [address] [place], [place], [id number], 05/16/2024 14:54:34 tamsulosi n 0.4 mg capsule 2023 024 [facility] #06593, [address], [place], [id number], 04/10/2024 10:45:27 duloxetin e 30 mg capsule,d elayed release [id number] [facility]89014, [address], [place], [id number], 04/10/2024 10:45:43 tamsulosi n 0.4 mg capsule 2023 024 [facility] #54269, [address], [place], [id number], 05/16/2024 14:30:20 duloxetin e 30 mg capsule,d elayed release 2023 024 [facility] #53046, [address], [place], [id number], 05/16/2024 14:30:14 Patient TargetsNo targets recorded. Patient Instructions Encounter Date Encounter Id Patient Instructions Last Modified By Organization Details Last Modified Time 04/10/2024 [id number] dementia rating scale-2* Not available 04/10/2024 10:58:22 depression screening* Not available 04/10/2024 11:11:26 alcohol misuse* [email or web address] Not available 04/10/2024 11:11:26 multi-dimensiona l health assessment questionnaire* [email or web address] Not available 04/10/2024 11:11:26 Personalized [facility] lt Plan and Screening Recommendations Advance [...] 2016, 39([place] ppl.1 ):s13 -s22 Not Available [facility] (Lab) [address] [place], [address], 04/28/2023 14:08:03 10/25/2010/25/2023 CBC/C OMPLE TE BLD COUNT W/DIF F white blood cells 8.0 x10'3 /uL 4.2-10 .8 Not Available [facility] (Lab) [address] [place], [address], 10/25/2023 14:55:41 10/25/2010/25/2023 CBC/C OMPLE TE BLD COUNT W/DIF F red blood cells 4.59 x10'6 /uL 4.10-5 .80 Not Available [facility] (Lab) [address] [facility] [place], [address], 10/25/2023 14:55:41 10/25/20 23 10/25/2023 CBC/C OMPLE TE BLD COUNT W/DIF F hemoglobin 14.8 g/dL 13.2-1 7.0 Not Available [facility] (Lab) [address] [place], [address], 10/25/2023 14:55:41 10/25/20 23 10/25/2023 CBC/C OMPLE TE BLD COUNT W/DIF F hematocrit 43.6 % 39.3-5 0.0 Not Available [facility] (Lab) [address] [place], [address], 10/25/2023 14:55:41 10/25/20 23 10/25/2023 CBC/C OMPLE TE BLD COUNT W/DIF F mean red cell volume 95.0 fL 80.0-9 7.0 Not Available [facility] (Lab) [address] [place], [address], 10/25/2023 14:55:41 10/25/20 23 10/25/2023 CBC/C OMPLE TE BLD COUNT W/DIF F mean red cell hemoglobin 32.2 pg 27.0-3 3.0 Not Available [facility] (Lab) [address] [place], [address], 10/25/2023 14:55:41 10/25/20 23 10/25/2023 CBC/C OMPLE TE BLD COUNT W/DIF F mean RBC HGB concentratio n 33.9 g/dL 31.0-3 6.0 Not Available [facility] (Lab) [address] [place], [address], 10/25/2023 14:55:41 10/25/20 23 10/25/2023 CBC/C OMPLE TE BLD COUNT W/DIF F red cell distribution width 12.1 % 11.8-1 5.5 Not Available [facility] (Lab) [address] [facility] [place], [address], 10/25/2023 14:55:41 10/25/20 23 10/25/2023 CBC/C OMPLE TE BLD COUNT W/DIF F platelets 251 x10'3 /uL 150-40 0 Not Available [facility] (Lab) [address] [place], [address], 10/25/2023 14:55:41 10/25/20 23 10/25/2023 CBC/C OMPLE TE BLD COUNT W/DIF F mean platelet volume 10.2 fL 9.0-12 .4 Not Available [facility] (Lab) [address] [place], [address], 10/25/2023 14:55:41 10/25/20 23 10/25/2023 CBC/C OMPLE TE BLD COUNT W/DIF F neutrophils 57.7 % 39.0-7 2.0 Not Available [facility] (Lab) [address] [place], [address], 10/25/2023 14:55:41 10/25/20 23 10/25/2023 CBC/C OMPLE TE BLD COUNT W/DIF F lymphocytes 30.2 % 16.0-4 7.0 Not Available [facility] (Lab) [address] [place], [address], 10/25/2023 14:55:41 10/25/20 23 10/25/2023 CBC/C OMPLE TE BLD COUNT W/DIF F monocytes 9.8 % 5.0-12 .0 Not Available [facility] (Lab) [address] [place], [address], 10/25/2023 14:55:41 10/25/20 23 10/25/2023 CBC/C OMPLE TE BLD COUNT W/DIF F eosinophils 1.6 % 1.0-7. 0 Not Available [facility] (Lab) [address] [place], [address], 10/25/2023 14:55:41 10/25/2010/25/2023 CBC/C OMPLE TE BLD COUNT W/DIF F basophils 0.6 % 0.0-2. 0 Not Available [facility] (Lab) [address] [place], [address], 10/25/2023 14:55:41 10/25/2010/25/2023 CBC/C OMPLE TE BLD COUNT W/DIF F immature granulocytes 0.1 % 0.00-0 .50 Not Available [facility] (Lab) [address] [place], [address], 10/25/2023 14:55:41 10/25/2010/25/2023 CBC/C OMPLE TE BLD COUNT W/DIF F neutrophils, absolute count 4.59 x10'3 /uL 1.5-8. 0 Not Available [facility] (Lab) [address] [facility] [place], [address], 10/25/2023 14:55:41 10/25/20 23 10/25/2023 CBC/C OMPLE TE BLD COUNT W/DIF F lymphocytes, absolute count 2.41 x10'3 /uL 1.07-3 .43 Not Available [facility] (Lab) [address] [place], [address], 10/25/2023 14:55:41 10/25/20 23 10/25/2023 CBC/C OMPLE TE BLD COUNT W/DIF F monocytes, absolute count 0.78 x10'3 /uL 0.29-0 .99 Not Available [facility] (Lab) [address] [place], [address], 10/25/2023 14:55:41 10/25/20 23 10/25/2023 CBC/C OMPLE TE BLD COUNT W/DIF F eosinophils, absolute count 0.13 x10'3 /uL 0.02-0 .53 Not Available [facility] (Lab) [address] [place], [address], 10/25/2023 14:55:41 10/25/20 23 10/25/2023 CBC/C OMPLE TE BLD COUNT W/DIF F basophils, absolute count 0.05 x10'3 /uL 0.01-0 .08 Not Available [facility] (Lab) [address] [place], [address], 10/25/2023 14:55:41 10/25/20 23 10/25/2023 CBC/C OMPLE TE BLD COUNT W/DIF F immature granulocytes ,absolute 0.01 x10'3 /uL 0.00-0 .05 Not Available [facility] (Lab) [address] [place], [address], 10/25/2023 14:55:41 10/25/20 23 10/25/2023 CBC/C OMPLE TE BLD COUNT W/DIF F nucleated red blood cells 0.0 % -0 Not Available [facility] (Lab) [address] [place], [address], 10/25/2023 14:55:41 10/25/20 23 10/25/2023 CBC/C OMPLE TE BLD COUNT W/DIF F NRBC# 0.00 x10'3 /uL Not Available [facility] (Lab) [address] [place], [address], 10/25/2023 14:55:41 10/25/20 23 10/25/2023 COMPR EHENS ABIGAIL METAB OLIC PANEL sodium 140 mmol/ L 137-14 5 Not Available [facility] (Lab) [address] [place], [address], 10/25/2023 15:05:02 10/25/20 23 10/25/2023 COMPR EHENS ABIGAIL METAB OLIC PANEL potassium 4.4 mmol/ L 3.5-5. 1 Not Available [facility] (Lab) [address] [place], [address], 10/25/2023 15:05:02 10/25/20 23 10/25/2023 COMPR EHENS ABIGAIL METAB OLIC PANEL chloride 105 mmol/ L 98-107 Not Available [facility] (Lab) [address] [place], [address], 10/25/2023 15:05:02 10/25/20 23 10/25/2023 COMPR EHENS ABIGAIL METAB OLIC PANEL carbon dioxide 26 mmol/ L 22-30 Not Available [facility] (Lab) [address] [place], [address], 10/25/2023 15:05:02 10/25/20 23 10/25/2023 COMPR EHENS ABIGAIL METAB OLIC PANEL anion gap 13.4 mmol/ L 14-22 low Not Available [facility] (Lab) [address] [place], [address], 10/25/2023 15:05:02 10/25/20 23 10/25/2023 COMPR EHENS ABIGAIL METAB OLIC PANEL glucose 106 mg/dL 70-99 high Not Available [facility] (Lab) [address] [place], [address], 10/25/2023 15:05:02 10/25/20 23 10/25/2023 COMPR EHENS ABIGAIL METAB OLIC PANEL BUN 19 mg/dL 8-19 Not Available [facility] (Lab) [address] [place], [address], 10/25/2023 15:05:02 10/25/20 23 10/25/2023 COMPR EHENS ABIGAIL METAB OLIC PANEL creatinine 1.57 mg/dL 0.66-1 .25 high Not Available [facility] (Lab) [address] [place], [address], 10/25/2023 15:05:02 10/25/20 23 10/25/2023 COMPR EHENS ABIGAIL METAB OLIC PANEL GFR 43 Refer ence Range : [place] ge GFR Healt hy Adult : >60 mL/mi n/1.7 3 m2 Chron ic Kidne y Disea se: 15-60 mL/mi n/1.7 3 m2 Kidne y Failu re: <15/m L/min /1.73 m2 www.n iddk. [facility].g ov The MDRD study equat ion has [...] calcu lator is avail able on the [facility] websi te: https :[email or web address] jensen.[email or web address] [email or web address] candelaria/pr ofess ional s/kdo qi/gf r_cal culat or Not Available [facility] (Lab) [address] [place], [address], 10/25/2023 15:05:02 10/25/20 23 10/25/2023 COMPR EHENS ABIGAIL METAB OLIC PANEL alkaline phosphatase 68 U/L 38-126 Not Available [facility] (Lab) [address] [place], [address], 10/25/2023 15:05:02 10/25/20 23 10/25/2023 COMPR EHENS ABIGAIL METAB OLIC PANEL alanine aminotransfe rase 20 U/L 0-50 Not Available [facility] (Lab) [address] [place], [address], 10/25/2023 15:05:02 10/25/20 23 10/25/2023 COMPR EHENS ABIGAIL METAB OLIC PANEL aspartate aminotransfe rase 21 U/L 15-46 Not Available [facility] (Lab) [address] [place], [address], 10/25/2023 15:05:02 10/25/20 23 10/25/2023 COMPR EHENS ABIGAIL METAB OLIC PANEL bilirubin, total 0.60 mg/dL 0.20-1 .30 Not Available [facility] (Lab) [address] [place], [address], 10/25/2023 15:05:02 10/25/20 23 10/25/2023 COMPR EHENS ABIGAIL METAB OLIC PANEL calcium 9.6 mg/dL 8.4-10 .2 Not Available [facility] (Lab) [address] [place], [address], 10/25/2023 15:05:02 10/25/20 23 10/25/2023 COMPR EHENS ABIGAIL METAB OLIC PANEL total protein 6.8 g/dL 6.3-8. 2 Not Available [facility] (Lab) [address] [place], [address], 10/25/2023 15:05:02 10/25/20 23 10/25/2023 COMPR EHENS ABIGAIL METAB OLIC PANEL albumin 4.2 g/dL 3.0-4. 4 Not Available [facility] (Lab) [address] [place], [address], 10/25/2023 15:05:02 10/25/20 23 10/25/2023 COMPR EHENS ABIGAIL METAB OLIC PANEL globulin 2.6 g/dL 2.6-4. 2 Not Available [facility] (Lab) [address] [place], [address], 10/25/2023 15:05:02 10/25/20 23 10/25/2023 COMPR EHENS ABIGAIL METAB OLIC PANEL A/G ratio 1.6 ratio 1.0-2. 0 Not Available [facility] (Lab) [address] [place], [address], 10/25/2023 15:05:02 10/25/20 23 10/25/2023 LIPID PANEL cholesterol 191 mg/dL 140-19 9 [facility] [place] NSUS RECOM MENDA TION FOR JOO STERO L: ADULT CHILD LOW RISK: <200 <170 BORDE RLINE : <200- 239 ----- HIGH RISK: >240 >200 Not Available [facility] (Lab) [address] [place], [address], 10/25/2023 15:05:04 10/25/20 23 10/25/2023 LIPID PANEL triglyceride s 146 mg/dL 0-150 [facility] [place] NSUS REPOR T RECOM MENDA TION FOR TRIGL YCERI JOJO: ADULT CHILD LOW RISK: <150 ----- BODER LINE: 150-1 99 ----- HIGH RISK: >200 ----- Not Available [facility] (Lab) [address] [place], [address], 10/25/2023 15:05:04 10/25/2010/25/2023 LIPID PANEL HDL cholesterol 45 mg/dL 40- Not Available [facility] (Lab) [address] [place], [address], 10/25/2023 15:05:04 10/25/2010/25/2023 LIPID PANEL LDL cholesterol, [...] WILL NOT BE REPOR BE. Not Available [facility] (Lab) [address] [place], [address], 10/25/2023 15:05:04 10/25/20 23 10/25/2023 TSH W/REF BENJAMIN FT4 TSH with reflex free T4 3.180 uIU/m L 0.465- 4.680 Not Available [facility] (Lab) [address] [place], [address], 10/25/2023 15:29:22 10/25/20 23 10/25/2023 PSA SCREE N PSA medicare screen 1.68 NG/mL 0.00-4 .00 Not Available [facility] (Lab) [address] [place], [address], 10/25/2023 15:29:26 10/25/20 23 10/25/2023 HEMOG LOBIN A1C HA1C 5.6 % 4.0-6. 0 Diabe prema Scree jeremi Crite sofy: <5.7% Consi stent with absen ce of diabe prema 5.7-6 .4% Consi stent with incre ased risk for diabe prema (pred iabet es) >OR=6 .5% Consi stent with diabe prema REFER ENCE: Diabe prema Care 2016, 39([place] ppl.1 ):s13 -s22 Not Available [facility] (Lab) [address] [place], [address], 10/25/2023 16:02:18 10/25/20 23 10/25/2023 VITAM IN B12 (MELANIE EDUARDO ) vb12 675 pg/mL 239-93 1 Not Available [facility] (Lab) [address] [place], [address], 10/25/2023 16:09:05 10/25/20 23 10/25/2023 URINA LYSIS W/REF BENJAMIN CULTU RE color LIGHT- YELLOW Not Available [facility] (Lab) [address] [place], [address], 10/25/2023 16:32:29 10/25/20 23 10/25/2023 URINA LYSIS W/REF BENJAMIN CULTU RE clarity CLEAR Not Available [facility] (Lab) [address] [place], [address], 10/25/2023 16:32:29 10/25/20 23 10/25/2023 URINA LYSIS W/REF BENJAMIN CULTU RE sp grav 1.025 1.001- 1.035 Not Available [facility] (Lab) [address] [place], [address], 10/25/2023 16:32:29 10/25/20 23 10/25/2023 URINA LYSIS W/REF BENJAMIN CULTU RE pH 5.0 pH_un its 5.0-9. 0 Not Available [facility] (Lab) [address] [place], [address], 10/25/2023 16:32:29 10/25/20 23 10/25/2023 URINA LYSIS W/REF BENJAMIN CULTU RE leukocytes NEGATI VE ari/u L negati ve- Not Available [facility] (Lab) [address] [place], [address], 10/25/2023 16:32:29 10/25/20 23 10/25/2023 URINA LYSIS W/REF BENJAMIN CULTU RE nitrite NEGATI VE negati ve- Not Available [facility] (Lab) [address] [place], [address], 10/25/2023 16:32:29 10/25/20 23 10/25/2023 URINA LYSIS W/REF BENJAMIN CULTU RE protein 15 mg/dL negati ve-15 abnormal Not Available [facility] (Lab) [address] [place], [address], 10/25/2023 16:32:29 10/25/20 23 10/25/2023 URINA LYSIS W/REF BENJAMIN CULTU RE glucose NORMAL mg/dL normal - Not Available [facility] (Lab) [address] [place], [address], 10/25/2023 16:32:29 10/25/20 23 10/25/2023 URINA LYSIS W/REF BENJAMIN CULTU RE ketones NEGATI VE mg/dL negati ve- Not Available [facility] (Lab) [address] [place], [address], 10/25/2023 16:32:29 10/25/20 23 10/25/2023 URINA LYSIS W/REF BENJAMIN CULTU RE urobilinogen NORMAL mg/dL normal -1 Not Available [facility] (Lab) [address] [place], [address], 10/25/2023 16:32:29 10/25/20 23 10/25/2023 URINA LYSIS W/REF BENJAMIN CULTU RE bilirubin NEGATI VE mg/dL negati ve- Not Available [facility] (Lab[facility] [address] [facility] [place], [address], 10/25/2023 16:32:29 10/25/20 23 10/25/2023 URINA LYSIS W/REF BENJAMIN CULTU RE blood 10 lilli/u L negati ve- abnormal Not Available [facility] (Lab) [address] [place], [address], 10/25/2023 16:32:29 10/25/20 23 10/25/2023 URINA LYSIS W/REF BENJAMIN CULTU RE white blood cells 9-20 per_h pf 0-8 abnormal Not Available [facility] (Lab) [address] [facility] [place], [address], 10/25/2023 16:32:29 10/25/20 23 10/25/2023 URINA LYSIS W/REF BENJAMIN CULTU RE red blood cells 5-10 per_h pf 0-4 abnormal Not Available [facility] (Lab) [address] [place], [address], 10/25/2023 16:32:29 10/25/20 23 10/25/2023 URINA LYSIS W/REF BENJAMIN CULTU RE bacteria FEW per_h pf Not Available [facility] (Lab) [address] [place], [address], 10/25/2023 16:32:29 10/25/20 23 10/25/2023 URINA LYSIS W/REF BENJAMIN CULTU RE epithelial cells PRESEN T abnormal Not Available [facility] (Lab) [address] [place], [address], 10/25/2023 16:32:29 10/25/20 23 10/25/2023 URINA LYSIS W/REF BENJAMIN CULTU RE mucus FEW abnormal Not Available [facility] (Lab) [address] [place], [address], 10/25/2023 16:32:29 10/25/20 23 10/25/2023 URINA LYSIS W/REF BENJAMIN CULTU RE casts NONE none seen- Not Available [facility] (Lab) [address] [place], [address], 10/25/2023 16:32:29 10/25/20 23 10/25/2023 URINA LYSIS W/REF BENJAMIN CULTU RE crystals NONE none seen- Not Available [facility] (Lab) [address] [place], [address], 10/25/2023 16:32:29 10/25/20 23 10/25/2023 URINA LYSIS W/REF BENJAMIN CULTU RE yeast NONE SEEN none seen- abnormal Not Available [facility] (Lab) [address] [place], [address], 10/25/2023 16:32:29 10/25/20 23 10/25/2023 VITAM IN B12 (MELANIE EDUARDO ) vb12 675 pg/mL 239-93 1 Not Available [facility] (Lab) [address] [place], [address], 10/25/2023 17:08:37 10/25/20 23 10/25/2023 FOLAT E, SERUM /PLAS MA folate 6.61 NG/mL 2.76-2 0.0 Not Available [facility] (Lab) [address] [place], [address], 10/25/2023 17:08:43 10/25/20 23 10/25/2023 VITAM IN D 25-HY DROXY vd25oh 39.7 NG/mL 30-100 Vitam in D Statu s: Defic ient: <20 ng/mL Insuf ficie nt: 20-29 ng/mL Suffi cient : 30-10 0 ng/mL Not Available [facility] (Lab) [address] [place], [address], 10/25/2023 17:08:53 06/11/20 23 06/11/2023 MRI, lumba r spine , w/o contr ast No observ ation record ed. [facility] [address] [place], [address], 10/25/2023 09:54:51 06/11/20 23 06/11/2023 XR, lumba r spine No observ ation record ed. [email or web address] [facility] [address] [place], [address], 10/25/2023 09:54:51 06/25/20 23 06/25/2023 MRI, thora cic spine , w/o contr ast No observ ation record ed. [facility] [address] [place], [address], 10/25/2023 09:54:51 09/02/20 09/01/2023 MRI, cervi stef spine , w/o contr ast No observ ation record ed. [email or web address] [facility] [address], [place], [address], 10/25/2023 09:54:51 05/04/20 24 US ABD multi ple organ s [facility] [address], [place] [address] [phone] Patien t Name: LILI DELGADO ion #: [id number] Sex: M : 1949 3 Dictat [...] in the left kidney . Page 1 [facility] [address] [place] [address] Patien t Name: LILI DELGADO ion #: [id number] Sex: M : 1949 3 Dictat ed By: Elena Perry Attend ing Physic nathan: VIVIANA ELLIOTT Orderi ng Physic nathan: CHRIS BENSON Exam Date: 2023 08:54 AM Exam Name: US ABDOME N MULTIP LE ORGANS Admitt ing Diagno sis(es ): Electr onical ly Signed by: Elena Perry at 2023 10:29: 39 AM Page [address] (Imaging) [address] [place], [address], 05/16/2024 14:13:24 05/16/20 24 05/16/2024 XR, chest , 2 view No observ ation record ed. [address] [address], [place], [address], 05/16/2024 16:27:02 05/16/20 24 05/16/2024 CT, abdom en + pelvi s, w/ contr ast No observ ation record ed. [address] [facility], [place], [address], 05/17/2024 12:32:57 10/17/20 24 10/17/2024 CT, abdom en + pelvi s, w/ contr ast No observ ation record ed. [address] [address], [place], [address], 10/17/2024 15:39:43 10/20/20 24 10/17/2024 CT, abdom en + pelvi s, w/ contr ast No observ ation record ed. [email or web address] [facility] [address], [place], [address], 10/21/2024 08:08:12 11/06/20 24 11/06/2024 CT, abdom en + pelvi s, w/ contr ast No observ ation record ed. [email or web address] [facility] [address], [place], [address], 11/06/2024 15:04:01 Result Notes None recorded. Problems Name Problem SNOMED Code Status Onset Date Resolution Date Notes Provider Name and Address Organization Details Recorded Time Electrocar diogram abnormal 004714115 Active 2020 Not Available [employer] 3 18:21:22 Deep venous thrombosis of upper extremity 980546070 Active 2020 Not Available [employer] 3 18:21:22 Chronic back pain 396404276 Active 2016 Not Available [employer] 3 18:21:22 Localized, primary osteoarthr itis of the pelvic region and thigh 853116168 Active Not Available [facility] 3 18:21:22 Osteoarthr itis of hip 443299713 Active 2016 Not Available [facility] 3 18:21:22 Lumbar spondylosi s 987935261 Active 2016 Not Available [facility] 3 18:21:23 Benign prostatic hyperplasi a without outflow obstructio n 065118029 Active 2019 Not Available [facility] 3 18:21:23 Gastroesop hageal reflux disease without esophagiti s 100613561 Active 2019 Not Available [facility] 3 18:21:23 Pain in right hip joint 2337134304435 02 Active 2016 Not Available [facility] 3 18:21:23 Sinusitis 94883310 Active 2021 Not Available [facility] 3 18:21:23 Elevated blood-pres sure reading without diagnosis of hypertensi on 649661882 Active 2018 Not Available [facility] 3 18:21:23 Neuropathy 961791682 Active 2016 Not Available [facility] 3 18:21:23 Thoracic spondylosi s 717696313 Active 2016 Not Available [facility] 3 18:21:23 Obesity 823050565 Active 2018 Not Available [facility] 3 18:21:23 Chronic kidney disease stage 3 982875000 Active 2016 Not Available [facility] 3 18:21:23 Hyperlipid emia 71501500 Active 2020 Not Available [facility] 3 18:21:23 Prediabete s 185177275 Active 2016 Not Available [facility] 3 18:21:23 Cyst of kidney 548002401 Active 2019 Not Available [facility] 3 18:21:24 Irritable bowel syndrome 05555543 Active 2022 Sj Benson MD [address] [address], [place], [address] , [employer] 3 11:59:10 Open wound of lower leg 808632067 Active 2023 Sj Benson MD [address] [address], [place], [address] , [employer] 4 10:44:52 Abdominal pain 82003301 Active 2023 Sj Benson MD [address] [facility], [place], [address] , [employer] 4 15:06:47 Left upper quadrant pain 950800277 Active 2023 Sj Benson MD [address], [place], [address] , [employer] 4 14:30:40 Problem Notes None recorded. Procedures Surgical History Date Name Laterality Status Provider Name and Address Organization Details Recorded Time 4 Medicare Wellness CPT Code, subsequent completed Nella Salas RN [place] - [facility] 04/10/2024 10:23:03 Imaging Results Imaging Date Name Status [facility]Modified by [facility] Details LastModified Time 06/11/2023 MRI, lumbar spine, w/o contrast completed [address] [place], [address], 10/25/2023 09:54:51 06/11/2023 XR, lumbar spine completed [email or web address] [place], [address], 10/25/2023 09:54:51 06/25/2023 MRI, thoracic spine, w/o contrast completed [address] [place], [address], 10/25/2023 09:54:51 09/01/2023 MRI, cervical spine, w/o contrast completed [address] [place], [address], 10/25/2023 09:54:51 05/04/2024 US ABD multiple organs completed [address] (Imaging) [address] [place], [address], 05/16/2024 14:13:24 05/16/2024 XR, chest, [address] view [address], [address], 05/16/2024 16:27:02 05/16/2024 CT, abdomen + pelvis, w/ contrast completed [address], [address], 05/17/2024 12:32:57 10/17/2024 CT, abdomen + pelvis, w/ contrast completed [address], [address], 10/17/2024 15:39:43 10/17/2024 CT, abdomen + pelvis, w/ contrast completed [address] [facility] [address], [place], [address], 10/21/2024 08:08:12 11/06/2024 CT, abdomen + pelvis, w/ contrast completed [address] [facility] [address], [place], [address], 11/06/2024 15:04:01 Procedure Notes None recorded. Medical Equipment None Reported. Allergies Allergen ID Allergen Name Allergen Category Reaction Reaction Severity Criticality Documentation Date Start Date Code Code System Note Provider Name and Address Organization Details Recorded Time 54849 Substance with sulfonami de structure and antibacte rial mechanism of action (substanc e) medicatio n Not available Not available Not available 01/20/2023 83255 8003 SNOMED Not Available [facility] 18:22:26 Medications Name Sig Start Date Stop [...] Relief 50 mcg/actua tion nasal spray,[place] pension [place] 1 spray every day by intranas al [...] Updated DateTime 3 182.88 cm 29.6 kg/m2 14903.1 4 g 16 /min 68 /min 98 % 98 % 96.9 [degF] 134 mm[Hg] 76 mm[Hg] Maria Isabel Murphy RN [facility] [employer] [facility] 3 11:43:04 Date Recorded Body height Body mass index (BMI) Body weight Body temperature Respiratory rate Oxygen saturation Oxygen saturation in Arterial blood by Pulse oximetry Systolic blood pressure Diastolic blood pressure Provider Name and Address Organization Details Last Updated DateTime 3 182.88 cm 29.8 kg/m2 13435.6 7 g 97.1 [degF] 16 /min 98 % 98 % 128 mm[Hg] 76 mm[Hg] Riley Larson [facility] [employer] 3 09:51:59 Date Recorded Heart rate Provider Name an d Address Organization Details Last Updated DateTime 10/25/2023 64 /min Tiffany Payton [address] [facility], [facility] [address], [address], [facility] [email or web address] [facility] 10/25/2023 09:54:49 Date Recorded Body height Body mass index (BMI) Body weight Body temperature Heart rate Respiratory rate Oxygen saturation Oxygen saturation in Arterial blood by Pulse oximetry Systolic blood pressure Diastolic blood pressure Provider Name and Address Organization Details Last Updated DateTime 3 182.88 cm 30 kg/m2 738371. 91 g 98.4 [degF] 60 /min 16 /min 99 % 99 % 126 mm[Hg] 70 mm[Hg] Riley [facility] 3 10:13:20 Date Recorded Body height Body temperature Heart rate Respiratory rate Oxygen saturation Oxygen saturation in Arterial blood by Pulse oximetry Systolic blood pressure Diastolic blood pressure Provider Name and Address Organization Details Last Updated DateTime 4 182.88 cm 98 [degF] 66 /min 16 /min 99 % 99 % 130 mm[Hg] 68 mm[Hg] Stephenie Moody RN [facility] 4 10:28:20 Date Recorded Body mass index (BMI) Body weight Provider Name and Address Organization Details Last Updated DateTime 04/10/2024 29.7 kg/m2 11347.65 g Sj Benson MD [address] [place] [address], [address], [facility] [employer] [facility] 04/10/2024 10:31:02 Date Recorded Body height Body mass index (BMI) Body weight Body temperature Heart rate Respiratory rate Oxygen saturation Oxygen saturation in Arterial blood by Pulse oximetry Systolic blood pressure Diastolic blood pressure Provider Name and Address Organization Details Last Updated DateTime 4 182.88 cm 29.4 kg/m2 52271.8 9 g 98.6 [degF] 66 /min 16 /min 99 % 99 % 126 mm[Hg] 60 mm[Hg] Riley [facility] 4 14:07:27 Social History Question Answer Notes LastModified by Organizat ion Details LastModified Time Tobacco Smoking Status Never Smoker Not Available [facility] 01/20/2023 18:20:08 Do You Have An Advance Directive? No MIGRATION.[id number] 9525 Information not available 01/20/2023 What Is Your Level Of Alcohol Consumption? None MIGRATION.686801 3622 Information not available 01/20/2023 Do You Wear A Helmet When Biking? No MIGRATION.898708 3070 Information not available 01/20/2023 Are You Blind Or Do You Have Difficulty Seeing? No MIGRATION.570530 0195 Information not available 01/20/2023 What Is Your Level Of Caffeine Consumption? Occasional MIGRATION.640878 7124 Information not available 01/20/2023 How Much Tobacco Do You Chew? None MIGRATION.594154 4595 Information not available 01/20/2023 In The 14 Days Before Symptom Onset, Have You Had Close Contact With A Laboratory-confir med COVID-19 While That Case Was Ill? No MIGRATION.248353 6901 Information not available 01/20/2023 In The 14 Days Before Symptom Onset, Have You Had Close Contact With A Person Who Is Under Investigation For COVID-19 While That Person Was Ill? No MIGRATION.124227 8793 Information not available 01/20/2023 Are You Deaf Or Do You Have Serious Difficulty Hearing? No MIGRATION.982010 9956 Information not available 01/20/2023 What Type Of Diet Are You Following? REGULAR MIGRATION.123974 5640 Information not available 01/20/2023 Do You Or Have You Ever Used E-cigarettes Or Vape? Never Used Electronic Cigarettes MIGRATION.953154 5450 Information not available 01/20/2023 What Is Your Occupation? RETIRED MIGRATION.905174 8163 Information not available 01/20/2023 Have There Been Any Changes To Your Family Or Social Situation? No MIGRATION.852961 4736 Information not available 01/20/2023 Are There Any Guns Present In Your Home? No MIGRATION.006251 0503 Information not available 01/20/2023 Do You Use Insect Repellent Routinely? No MIGRATION.317007 9214 Information not available 01/20/2023 Do You Have A Medical Power Of Call Center Operator? No MIGRATION.353942 6248 Information not available 01/20/2023 What Was The Date Of Your Most Recent Tobacco Screening? 04/10/2024 Information not available 04/10/2024 Do You Have Any Pets? No MIGRATION.149080 5877 Information not available 01/20/2023 What Is Your Relationship Status? MIGRATION.024990 9705 Information not available 01/20/2023 Do You Use Your Seat Belt Or Car Seat Routinely? Yes MIGRATION.464240 1048 Information not available 01/20/2023 Do You Have Smoke And Carbon Monoxide Detectors In Your Home? Yes MIGRATION.385635 9506 Information not available 01/20/2023 Are You Passively Exposed To Smoke? No MIGRATION.764089 2897 Information not available 01/20/2023 Do You Or Have You Ever Used Smokeless Tobacco? Never Used Smokeless Tobacco MIGRATION.664311 8314 Information not available 01/20/2023 Are There Any Smokers In Your House? No MIGRATION.128644 9443 Information not available 01/20/2023 How Much Tobacco Do You Smoke? No MIGRATION.360713 0634 Information not available 01/20/2023 Do You Participate In Social N-1-1? No MIGRATION.887265 0946 Information not available 01/20/2023 Do You Feel Stressed (tense, Restless, Nervous, Or Anxious, Or Unable To Sleep At Night)? [id number] MIGRATION.371500 9058 Information not available 01/20/2023 Do You Use Any Illicit Or Recreational Drugs? No MIGRATION.590624 1884 Information not available 01/20/2023 Do You Use Sunscreen Routinely? Yes MIGRATION.675441 7820 Information not available 01/20/2023 Has Tobacco Cessation Counseling Been Provided? No MIGRATION.465463 5451 Information not available 01/20/2023 Have You Recently Traveled Abroad? No MIGRATION.442123 1774 Information not available 01/20/2023 Are You Currently In School? No MIGRATION.625110 1044 Information not available 01/20/2023 Sex: Male Functional Status Question Answer Note LastModified by Organizat ion Details LastModified Time Do you have difficulty walking or climbing stairs? No MIGRATION.7803289 026 Information not available 01/20/2023 Do you have transportation difficulties? No MIGRATION.2107064 026 Information not available 01/20/2023 Are you able to walk? YESWOREST MIGRATION.1380854 026 Information not available 01/20/2023 Do you have difficulty doing errands alone? No MIGRATION.0047916 026 Information not available 01/20/2023 Are you able to care for yourself? Yes MIGRATION.3654801 026 Information not available 01/20/2023 Do you have difficulty dressing or bathing? Yes MIGRATION.8739242 026 Information not available 01/20/2023 What is your exercise level? None MIGRATION.0447940 026 Information not available 01/20/2023 Mental Status Question Answer Note LastModified by Organizat ion Details LastModified Time Do you have difficulty concentrating, remembering or making decisions? No MIGRATION.001714708 6 Information not available 01/20/2023 Family History Nothing Reported Notes:ADOPTED Medical History No medical history recorded. Immunizations Vaccine Type Date Status Note Provider Nam e and Address Organization Details Recorded Time Tdap 08/10/2017 completed Not Available [facility] 01/20/2023 18:22:25 Tdap 03/04/2017 completed Not Available [facility] 01/20/2023 18:22:25 Past Encounters Encounter ID Performer Location Encounter Start Date Encounter Closed Date Diagnosis/Indication Diagnosis SNOMED-CT Code Diagnosis ICD10 Code [id number] [facility] [address] [place] [address] 04/01/2021 00:00:00 04/01/2021 11:25:38 [id number] [facility] [address] [place] [address] 07/31/2021 00:00:00 07/31/2021 17:30:03 [id number] [facility] [address] [place] [address] 09/23/2021 00:00:00 09/23/2021 12:26:26 [id number] [facility] [address] [place] [address] 09/30/2021 00:00:00 09/30/2021 09:52:46 [id number] [facility] [address] [place] [address] 10/28/2021 00:00:00 10/28/2021 10:23:59 [id number] [facility] [address] [facility] [place] [address] 11/04/2021 00:00:00 11/04/2021 12:36:54 [id number] [facility] [address] [facility] [place] [address] 04/07/2022 00:00:00 04/07/2022 11:41:[id number] [address] 08/13/2022 00:00:00 08/13/2022 11:44:[id number] [address] 10/27/2022 00:00:00 10/27/2022 15:20:[id number] [address] 11/03/2022 00:00:00 11/03/2022 14:21:30 [id number] Sj Benson MD [address] [address] 05/17/2023 11:38:09 05/17/2023 12:39:39 Chronic back pain 576938938 G89.29 Lumbar spondylosis 61156 0009 M47.896 Neuropathy 163687641 G62 .9 Osteoarthritis of hip 23 8037611 M16.9 Prediabetes 648913330 R7 3.03 Obesity 180991255 E66.9 Irritable bowel syndrome 65736609 K58.9 Cyst of kidney 501415435 N28.1 Thoracic spondylosis 387 578039 M47.351 [id number] Sj Benson MD [address] [address] 10/25/2023 09:45:32 10/25/2023 10:22:25 Irritable bowel syndrome 86197979 K58.9 Chronic back pain 940204 002 G89.29 Lumbar spondylosis 73648 0009 M47.896 Neuropathy 113432205 G62 .9 Osteoarthritis of hip 23 1247574 M16.9 Prediabetes 421440661 R7 3.03 Obesity 079776406 E66.9 Cyst of kidney 719351005 N28.1 Thoracic spondylosis 387 799277 M47.814 Screening for malignant neoplasm of prostate 217979948 Z12.5 Benign pro static hyperplasia without outflow obstruction 043511223 N40.0 [id number] Sj Benson MD [facility] [address] [address] 11/10/2023 09:59:56 11/10/2023 10:37:16 Chronic back pain 015742567 G89.29 Lumbar spondylosis 96151 0009 M47.896 Neuropathy 089871021 G62 .9 Irritable bowel syndrome 72826797 K58.9 Osteoarthritis of hip 23 5992731 M16.9 Prediabetes 252241698 R7 3.03 Obesity 360702583 E66.9 Cyst of kidney 008961929 N28.1 Thoracic spondylosis 387 458124 M47.814 Benign pro static hyperplasia without outflow obstruction 305145593 N40.0 [id number] Sj Benson MD [address] [address] 04/10/2024 10:19:15 04/10/2024 10:54:05 Lumbar spondylosis 997922029 M47.896 Chronic back pain 232346 002 G89.29 Neuropathy 421855495 G62 .9 Irritable bowel syndrome 47005815 K58.9 Osteoarthritis of hip 23 8669183 M16.9 Prediabetes 147491340 R7 3.03 Obesity 493621290 E66.9 Cyst of kidney 047440894 N28.1 Thoracic spondylosis 387 337610 M47.814 Benign pro static hyperplasia without outflow obstruction 015897757 N40.0 Adult [facility] th examination 279244401 Z00.00 Screening for disorder 103108767 Z13.9 Open wound of lower leg 057709316 S81.809A [id number] Sj Benson MD [address] [address] 05/16/2024 13:58:42 05/16/2024 15:02:07 Lumbar spondylosis 594902312 M47.896 Chronic back pain 942650 002 G89.29 Neuropathy 672504610 G62 .9 Irritable bowel syndrome 83333440 K58.9 Osteoarthritis of hip 23 1667788 M16.9 Prediabetes 665465401 R7 3.03 Obesity 447045642 E66.9 Cyst of kidney 704755028 N28.1 Thoracic spondylosis 387 843645 M47.814 Benign pro static hyperplasia without outflow obstruction 565022557 N40.0 Left upper quadrant pain 459078561 R10.12 Health Concerns Section Related Observation LastModified by Organization Detai ls LastModified Time None Recorded Concern Status LastModified by Organization Details LastModified Time None Recorded Advance Directives Directive N: Payers Encounter Date Sequence Insurance Name Policy Number Policy Villatoro Covered Member ID Villatoro Member ID Guarantor Name 05/17/2023 1 [place] Lili F Thus [id number] 1 Lili Thus 05/17/2023 2 [place] 111 Lili F Thus [id number] Lili Thus 10/25/2023 1 [place] F Thus [id number] 1 Lili Thus 10/25/2023 2 [place] 111 Lili F Thus [id number] Lili Thus 11/10/2023 1 [place] F Thus [id number] 1 Lili Thus 11/10/2023 2 [place] 111 Lili F Thus [id number] Lili Thus 04/10/2024 1 [place] L[place] F Thus [id number] 1 Lili Thus 04/10/2024 2 [place] 111 Lili F Thus [id number] Lili Thus 05/16/2024 1 [place] L[place] F Thus [id number] 1 Lili Thus 05/16/2024 2 [place] 111 Lili F Thus [id number] Lili Thus Notes Date Note Type Note [...] better with his back pain.[place]. Sj Benson MD [address], [place], [address], [employer] 05/17/2023 12:37:16 10/25/2023 text/html Pt is here [...] doesn't want to use it.Pt goes to [place] during [place]. Sj Benson MD [address], [place], [address], [employer] 10/25/2023 10:17:07 11/10/2023 text/html Pt is here for f/u on his annual labs. Doing overall same as before and denies any new concern. Denies any problem with meds. Still c/o lot of low back pain and pt is f/u with Pain clinic in [place] for it. Pt is f/u with Spine [...] doesn't want to use it.Pt goes [place] during [place]. Sj Benson MD [address], [place], [address], [employer] 11/10/2023 10:34:05 04/10/2024 text/html Pt is here [...] pt is f/u with Pain clinic in [place] for it. Pt is f/u with Spine [...] doesn't want to use it.[place]. Sj Benson MD [address] [facility], [address] [address], [place], [address], [place] [facility] [employer] 04/10/2024 11:11:52 05/16/2024 text/html ACV: C/o Lt [...] cm. Pt is f/u with Uro at [place] for this. Denies any problem with meds. Still c/o lot of low back pain and pt is f/u with Pain clinic in [place] for it. Pt is f/u with Spine [...] bladder mass and kidney cyst.Pt goes to [place] during winter times. Sj Benson MD [address] [place] [address], [place], [address], [facility] [employer] 05/16/2024 14:56:58
--- OUTSIDE RECORDS SUMMARY | 2024-11-16 21:32 | XMS_ITS | Data Portability ---
Author Organization [facility] Need, [employer] [facility] Address [address] [place] [address] Care Team Providers Care Waterworks Supervisor Name Role Phone SHANTA BARTLETT Referring Provider Assessment No assessment recorded. Plan of Treatment Reminders Order Date Submit Date Provider Last Modified By Organization Details Last Modified Time Details Appointments None recorded. Lab rapid SARS CoV 2 Ag, QL IA, respiratory specimen 2021 MEGHAN In-Office Order, Internal Use Only DO Not Attach Compendium DO Not Attach Compendium, Do Not Delete/merge, [id number] 15:48:35 rapid strep group A, throat 2021 MEGHAN In-Office Order, Internal Use Only DO Not Attach Compendium DO Not Attach Compendium, Do Not Delete/merge, [id number] 15:46:34 Referral None recorded. Procedures None recorded. Surgeries None recorded. Imaging None recorded. Medication Orders None recorded. Patient TargetsNo targets recorded. Patient Instructions Encounter Date Encounter Id Patient Instructions Last Modified By Organization Details Last Modified Time 09/11/2022 [id number] rest fluids symptomatic otc medication as directed [...] DO Not Attach Compendium, Do Not Delete/merge, [id number] 09/11/2022 13:23:01 09/11/20 22 09/11/2022 rapid SARS CoV 2 Ag, QL IA, respi rator y speci men INTERNAL CONTROL VALID Not Available In-Off ice Order Internal Use Only DO Not Attach Compendium DO Not Attach Compendium, Do Not Delete/merge, [id number] 09/11/2022 13:23:01 09/11/20 22 09/11/2022 rapid SARS CoV 2 Ag, QL IA, respi rator y speci men Is this patient's first COVID test? No Not Available In-Off ice Order Internal Use Only DO Not Attach Compendium DO Not Attach Compendium, Do Not Delete/merge, [id number] 09/11/2022 13:23:01 09/11/20 22 09/11/2022 rapid SARS CoV 2 Ag, QL IA, respi rator y speci men Is patient employed in healthcare? No Not Available In-O ffice Order Internal Use Only DO Not Attach Compendium DO Not Attach Compendium, Do Not Delete/merge, [id number] 09/11/2022 13:23:01 09/11/20 22 09/11/2022 rapid SARS CoV 2 Ag, QL IA, respi rator y speci men Is patient symptomatic of COVID-19? Yes Not Available In- Office Order Internal Use Only DO Not Attach Compendium DO Not Attach Compendium, Do Not Delete/merge, [id number] 09/11/2022 13:23:01 09/11/20 22 09/11/2022 rapid SARS CoV 2 Ag, QL IA, respi rator y speci men If yes, date of onset (mm/dd/yyyy) ? 2021 Not Available In-Office Order Internal Use Only DO Not Attach Compendium DO Not Attach Compendium, Do Not Delete/merge, [id number] 09/11/2022 13:23:01 09/11/20 22 09/11/2022 rapid SARS CoV 2 Ag, QL IA, respi rator y speci men If female, is patient ? No Not Available In-Off ice Order Internal Use Only DO Not Attach Compendium DO Not Attach Compendium, Do Not Delete/merge, [id number] 09/11/2022 13:23:01 09/11/20 22 09/11/2022 rapid SARS CoV 2 Ag, QL IA, respi rator y speci men Has patient been hospitalized due to COVID? No Not Available In-Off ice Order Internal Use Only DO Not Attach Compendium DO Not Attach Compendium, Do Not Delete/merge, [id number] 09/11/2022 13:23:01 09/11/20 22 09/11/2022 rapid SARS CoV 2 Ag, QL IA, respi rator y speci men Has patient been in ICU due to COVID? No Not Available In-Off ice Order Internal Use Only DO Not Attach Compendium DO Not Attach Compendium, Do Not Delete/merge, [id number] 09/11/2022 13:23:01 09/11/20 22 09/11/2022 rapid SARS CoV 2 Ag, QL IA, respi rator y speci men Is patient resident in congregate care setting? No Not Available In-Off ice Order Internal Use Only DO Not Attach Compendium DO Not Attach Compendium, Do Not Delete/merge, [id number] 09/11/2022 13:23:01 09/11/20 22 09/11/2022 rapid strep group A, throa t strept A neg negati ve Not Available In-Office Order Internal Use Only DO Not Attach Compendium DO Not Attach Compendium, Do Not Delete/merge, [id number] 09/11/2022 13:23:10 Result Notes None recorded. Procedures Surgical History Date Name Laterality Status Provider Name and Address Organization Details Recorded Time Back surgery completed [facility] Physician [facility], [facility] 09/11/2022 10:09:11 Colonoscopy completed [facility] Physician [facility], [facility] 09/11/2022 10:09:11 Imaging Results None recorded. Procedure Notes None recorded. Medical Equipment None Reported. Allergies Allergen ID Allergen Name Allergen Category Reaction Reaction Severity Criticality Documentation Date Start Date Code Code System Note Provider Name and Address Organization Details Recorded Time [id number] Substance with sulfonami de structure and antibacte rial mechanism of action (substanc e) medicatio n other Not available Not available 09/11/2022 [id number] [facility] 10:09:10 Medications Not known to be on any medication Vitals Date Recorded Body weight Body mass index (BMI) Body height Oxygen saturation Oxygen saturation in Arterial blood by Pulse oximetry Respiratory rate Heart rate Body temperature Systolic blood pressure Diastolic blood pressure Provider Name and Address Organization Details Last Updated DateTime 2 256321. 51 g 30.1 kg/m2 182.88 cm 99 % 99 % 12 /min 59 /min 97.8 [degF] 146 mm[Hg] 82 mm[Hg] Hortensia Castillo [facility], [facility] 10:17:34 Social History Question Answer Notes LastModified by Organizat ion Details LastModified Time Tobacco Smoking Status Never Smoker Sofia knight, [facility], [facility] 09/11/2022 10:09:11 Do You Have An Advance Directive? No [email or web address] Information not available 09/11/2022 What Is Your Level Of Alcohol Consumption? None [email or web address] Information not available 09/11/2022 Is Blood Transfusion Acceptable In An Emergency? Yes [email or web address] Information not available 09/11/2022 What Is Your Level Of Caffeine Consumption? Occasional [email or web address] Information not available 09/11/2022 What Type Of Diet Are You Following? REGULAR [email or web address] Information not available 09/11/2022 What Is The Highest Grade Or Level Of School You Have Completed Or The Highest Degree You Have Received? AE77711-3 [email or web address] Information not available 09/11/2022 What Is Your Relationship Status? [email or web address] Information not available 09/11/2022 Are You Sexually Active? No [email or web address] Information not available 09/11/2022 Do You Or Have You Ever Used Smokeless Tobacco? Never Used Smokeless Tobacco [email or web address] Information not available 09/11/2022 Sex: Unknown Functional Status Question Answer Note LastModified by Organization D etails LastModified Time What is your exercise level? None [email or web address] Information not available 09/11/2022 Mental Status None recorded. Family History Nothing Reported. Medical History Condition Response Nerve Damage / Neuropathy Y Urinary Problems Y Back pain Y Immunizations Vaccine Type Date Status Note Provider Nam e and Address Organization Details Recorded Time COVID-19, mRNA, LNP-S, PF, 100 mcg/0.5mL dose or 50 mcg/0.25mL dose 02/10/2021 completed PRABHAKAR Grajeda [facility] 09/11/2022 10:08:56 COVID-19, mRNA, LNP-S, PF, 100 mcg/0.5mL dose or 50 mcg/0.25mL dose 03/10/2021 completed Sofia knight [place] [facility] [place] [facility] 09/11/2022 10:08:56 Past Encounters Encounter ID Performer Location Encounter Start Date Encounter Closed Date Diagnosis/Indication Diagnosis SNOMED-CT Code Diagnosis ICD10 Code [id number] Amanda Mason MD [facility] [place] [facility] [address] [place] [address] 09/11/2022 09:12:29 09/11/2022 10:39:52 Common cold [id number] J00 Health Concerns Section Related Observation LastModified by Organization Detai ls LastModified Time None Recorded Concern Status LastModified by Organization Details LastModified Time None Recorded Advance Directives Directive N: Payers Encounter Date Sequence Insurance Name Policy Number Policy Villatoro Covered Member ID Villatoro Member ID Guarantor Name 09/11/2022 1 [place] Ryan F Thus [id number] 1 Ryan F Thus 09/11/2022 2 [place] 111 Ryan F Thus [id number] Ryan F Thus Notes Date Note Type [...] vaccine product did you receive?Moderna Imported from [facility] on 09/11/2022 QUALITY MEASURE QUESTIONNAIRE ?Are you a diabetic patient ?No ?Has the Patient previously received any type of colorectal cancer screener ?Yes ?Please confirm which of the following colorectal screeners the Patient has received in the past ?Colonoscopy ?Colonoscopy Result ?Negative Imported from [facility] on 09/11/2022 Amanda Mason MD [address], [place], [address], [facility], [facility] 09/11/2022 21:10:51
--- OUTSIDE RECORDS SUMMARY | 2024-11-16 21:33 | XMS_ITS ---
Author Organization [facility] Address [address] [place] [address] Care Team Providers Care Information Security Director Name Role Phone Sj Benson Primary Care Provider Dr. Shay Joseph Unavailable [phone] REASON FOR VISIT Request for MRI report Encounters Encounter Location Date Provider Diagnosis [facility] [address] [place] [address] 07/05/2023 Shay Acosta Plan Of Treatment No Information Progress Notes * THUS, RyanDOB:1950 ([age] yo M)Acc No.[id number]:07/05/2023 Patient:?Ryan Delgado :1950???Age:72 Y???Sex:Male Address:[address] [place] [address] * true * Date:? Generated for Yaakovi richa/Adryan/eTransmitting on:?11/16/2024 09:32 PM HEAD BAKER
--- OUTSIDE RECORDS SUMMARY | 2024-11-16 21:33 | XMS_ITS ---
Author Organization [facility] Address [address] [place] [address] Care Team Providers Care Scheduler Maintenance Name Role Phone Sj Benson Primary Care Provider Dr. Shay Joseph Unavailable [phone] REASON FOR VISIT FYI only Encounters Encounter Location Date Provider Diagnosis [facility] [address] [place] [address] 08/24/2023 Shay Acosta Plan Of Treatment No Information Progress Notes * THUS, RyanDOB:1950 (5 4 yo M)Acc No.[id number]:08/24/2023 Patient:?Ryan Delgado :1950???Age:72 Y???Sex:Male Address:[address] [place] [address] * true * Date:? 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
--- OUTSIDE RECORDS SUMMARY | 2024-11-16 21:33 | XMS_ITS | Patient Health Record ---
Author Organization [facility] Address [address] [place] [address] Care Team Providers Care Human Resources Associate Name Role Phone Sj Benson Primary Care Provider UnavailDr. Shay Wellington Unavailable [phone] [facility], Provider Unavailable Unavailab le Allergies Allergen [...] Problem Chronic migraine without aura, non-refractory (disorder) (48141749832657 0) Migraine without aura, not intractable, without status migrainosus (G43.009) Active confirmed Problem Migraine with aura (1465948) Migraine with aura, not intractable, without status migrainosus (G43.109) Active confirmed Problem Chronic migraine without aura, non-intractable (68074390280244 0) Chronic migraine without aura, not intractable, without status migrainosus (G43.709) Active confirmed Problem 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 (226159795) Myelopathy in diseases classified elsewhere (G99.2) Active confirmed Problem Neuralgia (53982324) Neuralgia and neuritis, unspecified (M79.2) Active confirmed Problem Abnormal gait (44048454) Unsteadiness on feet (R26.81) Active confirmed Encounters Encounter Location Date Provider Diagnosis [facility] [address] [place] [address] 05/06/2024 Provider ZZ-Migration Plan Of Treatment Pending Test Test Name Order Date MRI : Spine, Thoracic (without gadoliniu m) 06/17/2023 Insurance Providers Payer Name Payer Address Payer Phone Subscriber Number Group Number Insured Name Patient Relationship to Insured Coverage Start Date Coverage End Date [employer] Attention Claims [address] [place] [address] [id number] Thus, Ryan Self - patient is the insured [facility] [address] [place] [address] [id number] Thus, Ryan Self - patient is the [...]
--- OUTSIDE RECORDS SUMMARY | 2024-11-16 21:33 | XMS_ITS | CONTINUITY OF CARE DOCUMENT ---
Author Name ayush mamtanithin Address Unknown Organization [facility] Address [address] [place] [address] [address] [place] [address] Phone [phone] Care Team Providers Care Shoeshiner Name Role Phone Junior STOKES, Jarret Unavailable BLAKE MICHELLE MD Unavailable [phone] BLAKE MICHELLE MD Unavailable INSURANCE PROVIDERS Payer name Policy type / Coverage type Scurry red constitution party ID [facility] [id number] [place] [employer] Medicare [id number]
--- OUTSIDE RECORDS SUMMARY | 2024-11-16 21:35 | XMS_ITS | Continuity of Care Document ---
Author Organization [facility] Address [address] [place] [address] [address] [place] [address] Phone Care Team Providers Care Retail Clerk Name Role Phone Elton Sprague Unavailable Unavailable Advance Directives Directive Yes / No Effective Date File Name No Information Encounters Encounter Description Practice Location Reason(s) For Visit Diagnoses Date Provider Providers Copied on Encounter [facility], [address] [place] [address] [address], [place], [place], [id number], [place] tel:[phone] [facility] No Information Dec-2 0-200 6 Doisy Edward. [address] , [address], [place], [address], [place]. tel:[phone] Family History Family Member Type Diagnosis Age At Onset No Information Payers Payer name Insurance type Covered libertarian ID Authoriza tion(s) BCBS [place] FEP BL [id number] Social History Type Description Quantity Date Captured [...]
== END 2024-11-11 17:00 | disposition home health service (06) | DRG 698 ==
LOC: ANHED 12:10 → ANH2MED 11-07 15:59
PROVIDERS: Nurse Practitioner Family; Physician Assistant; Admitting Provider Internal Medicine; Emergency Provider Emergency Medicine; PCP Family Medicine; Visit Provider Nurse Practitioner Acute Care
DX: T83.511A Infection and inflammatory reaction due to indwelling urethral catheter, initial encounter (principal); L89.153 Pressure ulcer of sacral region, stage 3; G82.22 Paraplegia, incomplete; N30.90 Cystitis, unspecified without hematuria; N18.9 Chronic kidney disease, unspecified; N31.9 Neuromuscular dysfunction of bladder, unspecified; D64.9 Anemia, unspecified; N40.1 Benign prostatic hyperplasia with lower urinary tract symptoms; R33.8 Other retention of urine; L85.3 Xerosis cutis; Q06.8 Other specified congenital malformations of spinal cord; Z79.01 Long term (current) use of anticoagulants; Z85.51 Personal history of malignant neoplasm of bladder; Z86.718 Personal history of other venous thrombosis and embolism; Z98.1 Arthrodesis status
CPT/HCPCS: 36415; 74177; 80048; 80053; 81001; 83605; 83735; 85025; 85027; 87086; 87186; 96374; 96375; 97110; 97161; 97166; 97530; 97535; 99285; A9270; J0744; J1171; Q9967

== ENCOUNTER 2024-12-04 15:59 | Inpatient (IN) | payer MEDICARE, BC, SELFPAY ==
[2024-12-04] VITALS (12 sets, daily range): BP systolic 114–137; BP diastolic 60–93; PULSE 70–88; RESP 14–18; TEMP 36.5–37.1; O2SAT 96–99; BMI 27.5
--- NOTE | ~2024-12-04 | XR_ITS ---
Portable chest x-ray Comparison: 05/16/2024 Clinical History: Decubitus ulcer Findings: There is linear left basilar scarring. Lungs are otherwise clear. Cardiomediastinal silho uette is stable. Bones and soft tissues are unremarkable. Impression: Linear left basilar scarring, otherwise clear lungs. Reviewed, dictated and finalized at [facility]. RIFUGAL SPINNER Impression: Linear left basilar scarring, otherwise clear lungs.
--- NOTE | ~2024-12-04 | CT_ITS ---
CLINICAL INDICATION: Sacral ulcer COMPARISON: 11/06/2024, CT examination of the abdomen and pelvis. TECHNIQUE: Multiple contiguous axial images of the pelvis were performed following the administration of intravenous contrast The dose-length product (DLP) was 583.69 mGy-cm. Automated exposure control and iterative reconstruction technique were employed. FINDINGS/OBSERVATIONS: Redemonstration of a large left renal cyst, unchanged from prior. The appendix is of normal caliber (axial series, images 39 through 58). The bladder is decompressed with a Zheng catheter, limiting its evaluation. Infiltration of the presacral fat is redemonstrated. Multiple punctate foci of air are identified within the soft tissues extending from the coccyx and ex tending caudally approximately 12 cm to the level of the perineum. This focus measures 3.1 x 5.1 x 20 cm (anterior to posterior x medial to lateral x cranial to caudal dimension). No punctate foci of air are identified extending along the fascial planes, as this appears to be isol ated to the left of midline within the soft tissues. IMPRESSION: Sacral decubitus ulcer, with measurements as detailed above. Reviewed, dictated and finalized at location A. BI DEVELOPER
[2024-12-04 16:52] LABS: Basophils Absolute Auto 0.1 K/mm3 (0.0-0.1); Basophils Percent Auto 0.4 % (0.2-1.2); Eosinophils Absolute Auto 0.3 K/mm3 (0-0.3); Eosinophils Percent Auto 1.3 % (0-4.4); Hematocrit 35.6 % (42.0-52.0); Hemoglobin 11.4 g/dL (14.0-18.0); Immature Granulocyte Absolute 0.18 K/mm3 (0.00-0.031); Immature Granulocyte Percent A 0.9 % (0-0.5); Lymphocytes Absolute Auto 1.66 K/mm3 (0.9-3.2); Lymphocytes Percent Auto 8.6 % (18.3-44.2); Mean Corpuscular Hemoglobin 30.3 pg (26-34); Mean Corpuscular Volume 94.7 fl (80-100); Mean Platelet Volume 8.8 fl (7.4-10.4); Monocytes Absolute Auto 1.4 K/mm3 (0.1-0.6); Neutrophils Absolute Auto 15.8 K/mm3 (1.3-6.7); Neutrophils Percent Auto 81.8 % (45.5-73.1); Platelet Count Result 534 k/mm3 (150-375); Red Blood Count 3.76 M/mm3 (4.6-6.20); Red Cell Distribution Width 12.6 % (11.5-14.5); White Blood Count 19.4 K/mm3 (4.5-10.0)
[2024-12-04 17:04] LABS: Alanine Aminotransferase 62 U/L (6-50); Albumin Level 3.7 g/dL (3.5-5.1); Alkaline Phosphatase 182 U/L (38-126); Anion Gap 8 mmol/L (4-12); Aspartate Amino Transferase 35 U/L (17-59); Bilirubin,Total 0.5 mg/dL (0.2-1.3); Blood Urea Nitrogen 21 mg/dL (9-20); Calcium 9.7 mg/dL (8.4-10.2); Carbon Dioxide 29 mmol/L (22-30); Chloride 99 mmol/L (98-107); Estimated CRCL calculation 68 ml/min; Estimated Glomerular Filt Rate > 60; Glucose 107 mg/dL (65-110); Potassium 4.5 mmol/L (3.4-5.0); Sodium 136 mmol/L (137-145)
[2024-12-04 17:06] LABS: Lactic Acid Reflex 1.7 mmol/L (0.7-2.0)
--- NOTE | 2024-12-04 18:29 | ED_ITS ---
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 Patient states his home health nurse told him that his sacral wound changed from 1 cm to 3 cm and he should go to the ED to get it evaluated. States he believes 1 started about 4 weeks ago. He denies known drainage but does report increased pain to his sacrum. Denies fever, nausea vomiting. <Alka German PA-C - Last Filed: 12/04/24 20:30> Related Data Home medications: Home Medications ?Medication ?Instructions ?Recorded ?Confirmed ?Last Taken ?Type Florastor 1 cap PO DAILY 10/14/24 12/04/24 Unknown History acetaminophen 2 tablet BYMOUTH Q6H PRN Pain 10/14/24 12/04/24 10/14/24 09:52 History 1000 mg docusate sodium 100 mg capsule 100 mg PO BID 10/14/24 12/04/24 10/13/24 21:02 History 100 mg polyethylene glycol 3350 17 gram 17 g PO BID PRN Constipation 10/14/24 12/04/24 10/12/24 08:58 History oral powder packet (Miralax) (First line) sennosides 8.6 mg tablet (senna) 8.6 mg PO BID 10/14/24 12/04/24 10/13/24 21:02 History duloxetine 30 mg capsule,delayed 30 mg PO BID 12/04/24 12/04/24 Unknown History release gabapentin 300 mg capsule 300 mg PO .q8hr 12/04/24 12/04/24 Unknown History <Alka German PA-C - Last Filed: 12/04/24 20:30> Allergies/Adverse reactions: Allergies Allergy/AdvReac Type Severity Reaction Status Date / Time Sulfa (Sulfonamide Allergy Unknown Unknown Verified 10/14/24 15:51 Antibiotics) <Alka German PA-C - Last Filed: 12/04/24 20:30> Review of Systems 2 Review of Systems: All systems reviewed & are unremarkable except as noted in HPI and below <Alka German PA-C - Last Filed: 12/04/24 20:30> [facility] Past Medical History Medical History: Medical History (Updated 12/05/24 @ 02:54 by Bradley Daniels MD) Leukocytosis Chronic anemia Deep venous thrombosis Tethered spinal cord Benign prostatic hyperplasia Chronic kidney disease Neurogenic bladder Neurogenic bowel, not elsewhere classified Paraplegia, incomplete Thoracic myelopathy Bladder stones Bladder cancer Requiring excision of tumor <Alka German PA-C - Last Filed: 12/04/24 20:30> Surgical History Surgical History: Surgical History Spinal cord stimulator status History of bladder surgery excision of bladder tumor History of back surgery (10/02/24) posterior lumbar thoracic spinal fusion with instrumentation, 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 given compression of thoracic myelopathy at [facility] <Alka German PA-C - Last Filed: 12/04/24 20:30> Family History Family History: Family History Father Acute myocardial infarction, Onset Age: 57 Patient's father is Mother Patient's mother is Unknown Family history not known due to adoption Other Unknown family medical history <Alka German PA-C - Last Filed: 12/04/24 20:30> Social History Social History: Social History Social History: Surrogate medical decision maker: Gricelda Delgado, spouse. Code status: Full code. Smoking status: Never smoker Second hand tobacco smoke exposure: No Alcohol intake: never Substance use: never Substance use type: does not use Do You Feel Safe in your Home?: Yes Lack of Transportation: No Lack of Food: Never True Current Housing: I Have Housing Concerned About Future Housing: No Difficulty Paying Gas/Electric Bills: No Difficulty Paying for Meds: No Currently Unemployed: No Education: High School Diploma/GED Difficulty w/ Childcare or Family Care: No Living arrangements: with family Additional living arrangements comments: Lives with spouse in [place]. They have 3 children. Occupation/Education: retired Additional occupation/education comments: [employer] Spiritual care concerns: No <Alka German PA-C - Last Filed: 12/04/24 20:30> Exam 2 Narrative: GENERAL: Well-appearing, well-nourished, and in no acute distress. HEAD: Normocephalic, atraumatic. EYES: EOMI. ENT: Nares clear, no rhinorrhea or epistaxis. Mucous membranes moist. NECK: Supple. CHEST: Clear to auscultation. No respiratory distress. HEART: Regular rate and rhythm. No murmur heard. Normal peripheral pulses. ABDOMEN: Soft, nontender, nondistended, normal active bowel sounds. Zheng catheter in place draining clear yellow fluid EXTREMITIES: Normal range of motion. No edema.. SKIN: 2 cm x 1 cm stage IV sacral ulcer with biofilm at the base, tunneling beneath the skin to the left. Active malodorous drainage. Surrounding stage 1 and 2 ulcer with tenderness and blanching erythema NEURO: Alert and oriented x3. Chronic paraplegia <Alka German PA-C - Last Filed: 12/04/24 20:30> Course DIPLOMATIC OFFICER/PA Physician Supervision PA did notify me that this patient had a sacral decubitus ulcer that would potentially require debridement. I did not personally evaluate this patient/perform a physical exam and was not directly involved in their care but was available for consultation while patient was in the emergency department and did hear the AP P presenting the patient to on-call hospitalist attending < Rebecca Mcgovern MD - Last Filed: 12/05/24 11:55> Vital Signs Vital signs: Vital Signs Temperature 98.1 F 12/04/24 16:04 Pulse Rate 88 12/04/24 16:04 Respiratory Rate 16 12/04/24 16:04 Blood Pressure 114/93 H 12/04/24 16:04 Pulse Oximetry 97 01/13/25 16:04 Oxygen Delivery Room Air 12/04/24 16:04 Temperature 98.8 F 12/05/24 06:00 Pulse Rate 71 12/05/24 06:00 Respiratory Rate 18 12/05/24 06:00 Blood Pressure 125/69 12/05/24 06:00 Pulse Oximetry 96 12/05/24 08:46 Oxygen Delivery Room Air 12/05/24 08:46 <Alka German PA-C - Last Filed: 12/04/24 20:30> Vital Signs Temperature 98.1 F 12/04/24 16:04 Pulse Rate 88 12/04/24 16:04 Respiratory Rate 16 12/04/24 16:04 Blood Pressure 114/93 H 12/04/24 16:04 Pulse Oximetry 97 12/04/24 16:04 Oxygen Delivery Room Air 12/04/24 16:04 Temperature 98.8 F 12/05/24 06:00 Pulse Rate 71 12/05/24 06:00 Respiratory Rate 18 12/05/24 06:00 Blood Pressure 125/69 12/05/24 06:00 Pulse Oximetry 96 12/05/24 08:46 Oxygen Delivery Room Air 12/05/24 08:46 <Rebecca Mcgovern MD - Last Filed: 12/05/24 11:55> MDM - Skin/Abscess/Foreign Bdy MDM Narrative Medical decision making narrative: 74-year-old male with history of 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 Vitals are stable. He is afebrile nontoxic appearing. Exam is significant for the above. Lab work is remarkable for leukocytosis of 19.4. Chemistries with alk-phos of 182 and ALT of 62, otherwise unremarkable. No abdominal pain. Lactic acid is normal at 1.7. Blood cultures are pending. CT pelvis shows a sacral decubitus ulcer measuring 3.1 x 5.1 x 20 cm anterior-posterior x medial to lateral x cranial to caudal dimension. Patient updated on workup. He was started on cefepime, Flagyl and vancomycin. Plan to admit to the hospitalist for IV antibiotics and wound care. Will also place surgery consult as he may need debridement. Discussed with Dr. Daniels who agrees to admission. <Alka German PA-C - Last Filed: 12/04/24 20:30> Lab Data Result diagrams: 12/04/24 16:40 12/05/24 06:40 <Alka German PA-C - Last Filed: 12/04/24 20:30> Labs: Lab Results 12/04/24 12/04/24 12/04/24 Range/Units 16:40 20:17 23:21 WBC 19.4 H (4.5-10.0) K/mm3 RBC 3.76 L (4.6-6.20) M/mm3 Hgb 11.4 L (14.0-18.0) g/dL Hct 35.6 L (42.0-52.0) % MCV 94.7 (80-100) fl MCH 30.3 (26-34) pg MCHC 32.0 (32-36) g/dl RDW 12.6 (11.5-14.5) % Plt Count 534 H D (150-375) k/mm3 MPV 8.8 (7.4-10.4) fl Immature Gran % (Auto) 0.9 H (0-0.5) % Neut % (Auto) 81.8 H (45.5-73.1) % Lymph % (Auto) 8.6 L (18.3-44.2) % [place] % (Auto) 7.0 (2.6-8.5) % Eos % (Auto) 1.3 (0-4.4) % Baso % (Auto) 0.4 (0.2-1.2) % Lymph # (Auto) 1.66 (0.9-3.2) K/mm3 [place] # (Auto) 1.4 H (0.1-0.6) K/mm3 Eos # (Auto) 0.3 (0-0.3) K/mm3 Baso # (Auto) 0.1 (0.0-0.1) K/mm3 Abs Immat Gran (auto) 0.18 H (0.00-0.031) K/mm3 Absolute Neuts (auto) 15.8 H (1.3-6.7) K/mm3 Absolute Nucleated RBC 0.000 (0.0-0.012) K/mm3 Nucleated RBC % 0.0 (0.0-0.2) % ESR 133 H (0-20) mm/hr Sodium 136 L (137-145) mmol/L Potassium 4.5 (3.4-5.0) mmol/L Chloride 99 (98-107) mmol/L Carbon Dioxide 29 (22-30) mmol/L Anion Gap 8 (4-12) mmol/L BUN 21 H D (9-20) mg/dL Creatinine 0.89 (0.7-1.3) mg/dL Estim Creat Clear Calc 68 ml/min Estimated GFR > 60 (59 - ) Glucose 107 (65-110) mg/dL Lactic Acid 1.7 (0.7-2.0) mmol/L Calcium 9.7 (8.4-10.2) mg/dL Total Bilirubin 0.5 (0.2-1.3) mg/dL AST 35 (17-59) U/L ALT 62 H (6-50) U/L Alkaline Phosphatase 182 H (38-126) U/L C-Reactive Protein 16.3 H (<1.0) mg/dL Total Protein 7.0 (6.3-8.2) g/dL Albumin 3.7 (3.5-5.1) g/dL Urine Color Yellow (Yellow) Urine Appearance Clear (Clear) Urine pH 5.0 (5.0-9.0) Ur Specific [place] > 1.045 H (1.001-1.035) Urine Protein Trace (Negative) mg/dL Urine Glucose (UA) Negative (Negative) mg/dL Urine Ketones Negative (Negative) mg/dL Ur Blood (Man) Negative (Negative) Urine Nitrate Negative (Negative) Urine Bilirubin Negative (Negative) Urine Urobilinogen 0.2 (<2.0) mg/dL Leukocyte Esterase Rfl Negative (Negative) TIFFANY/UL Urine RBC 0-2 (0-2) /hpf Urine WBC 0-5 (0-3) /hpf Ur Squamous Epith Cells None seen (Few) /hpf Urine Bacteria None seen /hpf Urine Casts 0-2 12/05/24 Range/Units 06:40 WBC (4.5-10.0) K/mm3 RBC (4.6-6.20) M/mm3 Hgb (14.0-18.0) g/dL Hct (42.0-52.0) % MCV (80-100) fl MCH (26-34) pg MCHC (32-36) g/dl RDW (11.5-14.5) % Plt Count (150-375) k/mm3 MPV (7.4-10.4) fl Immature Gran % (Auto) (0-0.5) % Neut % (Auto) (45.5-73.1) % Lymph % (Auto) (18.3-44.2) % [place] % (Auto) (2.6-8.5) % Eos % (Auto) (0-4.4) % Baso % (Auto) (0.2-1.2) % Lymph # (Auto) (0.9-3.2) K/mm3 [place] # (Auto) (0.1-0.6) K/mm3 Eos # (Auto) (0-0.3) K/mm3 Baso # (Auto) (0.0-0.1) K/mm3 Abs Immat Gran (auto) (0.00-0.031) K/mm3 Absolute Neuts (auto) (1.3-6.7) K/mm3 Absolute Nucleated RBC (0.0-0.012) K/mm3 Nucleated RBC % (0.0-0.2) % ESR (0-20) mm/hr Sodium (137-145) mmol/L Potassium (3.4-5.0) mmol/L Chloride (98-107) mmol/L Carbon Dioxide (22-30) mmol/L Anion Gap (4-12) mmol/L BUN (9-20) mg/dL Creatinine 0.86 (0.7-1.3) mg/dL Estim Creat Clear Calc 70 ml/min Estimated GFR > 60 (59 - ) Glucose (65-110) mg/dL Lactic Acid (0.7-2.0) mmol/L Calcium (8.4-10.2) mg/dL Total Bilirubin (0.2-1.3) mg/dL AST (17-59) U/L ALT (6-50) U/L Alkaline Phosphatase (38-126) U/L C-Reactive Protein (<1.0) mg/dL Total Protein (6.3-8.2) g/dL Albumin (3.5-5.1) g/dL Urine Color (Yellow) Urine Appearance (Clear) Urine pH (5.0-9.0) Ur Specific [place] (1.001-1.035) Urine Protein (Negative) mg/dL Urine Glucose (UA) (Negative) mg/dL Urine Ketones (Negative) mg/dL Ur Blood (Man) (Negative) Urine Nitrate (Negative) Urine Bilirubin (Negative) Urine Urobilinogen (<2.0) mg/dL Leukocyte Esterase Rfl (Negative) TIFFANY/UL Urine RBC (0-2) /hpf Urine WBC (0-3) /hpf Ur Squamous Epith Cells (Few) /hpf Urine Bacteria /hpf Urine Casts <Alka German PA-C - Last Filed: 12/04/24 20:30> Lab Results 12/04/24 12/04/24 12/04/24 Range/Units 16:40 20:17 23:21 WBC 19.4 H (4.5-10.0) K/mm3 RBC 3.76 L (4.6-6.20) M/mm3 Hgb 11.4 L (14.0-18.0) g/dL Hct 35.6 L (42.0-52.0) % MCV 94.7 (80-100) fl MCH 30.3 (26-34) pg MCHC 32.0 (32-36) g/dl RDW 12.6 (11.5-14.5) % Plt Count 534 H D (150-375) k/mm3 MPV 8.8 (7.4-10.4) fl Immature Gran % (Auto) 0.9 H (0-0.5) % Neut % (Auto) 81.8 H (45.5-73.1) % Lymph % (Auto) 8.6 L (18.3-44.2) % [place] % (Auto) 7.0 (2.6-8.5) % Eos % (Auto) 1.3 (0-4.4) % Baso % (Auto) 0.4 (0.2-1.2) % Lymph # (Auto) 1.66 (0.9-3.2) K/mm3 [place] # (Auto) 1.4 H (0.1-0.6) K/mm3 Eos # (Auto) 0.3 (0-0.3) K/mm3 Baso # (Auto) 0.1 (0.0-0.1) K/mm3 Abs Immat Gran (auto) 0.18 H (0.00-0.031) K/mm3 Absolute Neuts (auto) 15.8 H (1.3-6.7) K/mm3 Absolute Nucleated RBC 0.000 (0.0-0.012) K/mm3 Nucleated RBC % 0.0 (0.0-0.2) % ESR 133 H (0-20) mm/hr Sodium 136 L (137-145) mmol/L Potassium 4.5 (3.4-5.0) mmol/L Chloride 99 (98-107) mmol/L Carbon Dioxide 29 (22-30) mmol/L Anion Gap 8 (4-12) mmol/L BUN 21 H D (9-20) mg/dL Creatinine 0.89 (0.7-1.3) mg/dL Estim Creat Clear Calc 68 ml/min Estimated GFR > 60 (59 - ) Glucose 107 (65-110) mg/dL Lactic Acid 1.7 (0.7-2.0) mmol/L Calcium 9.7 (8.4-10.2) mg/dL Total Bilirubin 0.5 (0.2-1.3) mg/dL AST 35 (17-59) U/L ALT 62 H (6-50) U/L Alkaline Phosphatase 182 H (38-126) U/L C-Reactive Protein 16.3 H (<1.0) mg/dL Total Protein 7.0 (6.3-8.2) g/dL Albumin 3.7 (3.5-5.1) g/dL Urine Color Yellow (Yellow) Urine Appearance Clear (Clear) Urine pH 5.0 (5.0-9.0) Ur Specific [place] > 1.045 H (1.001-1.035) Urine Protein Trace (Negative) mg/dL Urine Glucose (UA) Negative (Negative) mg/dL Urine Ketones Negative (Negative) mg/dL Ur Blood (Man) Negative (Negative) Urine Nitrate Negative (Negative) Urine Bilirubin Negative (Negative) Urine Urobilinogen 0.2 (<2.0) mg/dL Leukocyte Esterase Rfl Negative (Negative) TIFFANY/UL Urine RBC 0-2 (0-2) /hpf Urine WBC 0-5 (0-3) /hpf Ur Squamous Epith Cells None seen (Few) /hpf Urine Bacteria None seen /hpf Urine Casts 0-2 12/05/24 Range/Units 06:40 WBC (4.5-10.0) K/mm3 RBC (4.6-6.20) M/mm3 Hgb (14.0-18.0) g/dL Hct (42.0-52.0) % MCV (80-100) fl MCH (26-34) pg MCHC (32-36) g/dl RDW (11.5-14.5) % Plt Count (150-375) k/mm3 MPV (7.4-10.4) fl Immature Gran % (Auto) (0-0.5) % Neut % (Auto) (45.5-73.1) % Lymph % (Auto) (18.3-44.2) % [place] % (Auto) (2.6-8.5) % Eos % (Auto) (0-4.4) % Baso % (Auto) (0.2-1.2) % Lymph # (Auto) (0.9-3.2) K/mm3 [place] # (Auto) (0.1-0.6) K/mm3 Eos # (Auto) (0-0.3) K/mm3 Baso # (Auto) (0.0-0.1) K/mm3 Abs Immat Gran (auto) (0.00-0.031) K/mm3 Absolute Neuts (auto) (1.3-6.7) K/mm3 Absolute Nucleated RBC (0.0-0.012) K/mm3 Nucleated RBC % (0.0-0.2) % ESR (0-20) mm/hr Sodium (137-145) mmol/L Potassium (3.4-5.0) mmol/L Chloride (98-107) mmol/L Carbon Dioxide (22-30) mmol/L Anion Gap (4-12) mmol/L BUN (9-20) mg/dL Creatinine 0.86 (0.7-1.3) mg/dL Estim Creat Clear Calc 70 ml/min Estimated GFR > 60 (59 - ) Glucose (65-110) mg/dL Lactic Acid (0.7-2.0) mmol/L Calcium (8.4-10.2) mg/dL Total Bilirubin (0.2-1.3) mg/dL AST (17-59) U/L ALT (6-50) U/L Alkaline Phosphatase (38-126) U/L C-Reactive Protein (<1.0) mg/dL Total Protein (6.3-8.2) g/dL Albumin (3.5-5.1) g/dL Urine Color (Yellow) Urine Appearance (Clear) Urine pH (5.0-9.0) Ur Specific [place] (1.001-1.035) Urine Protein (Negative) mg/dL Urine Glucose (UA) (Negative) mg/dL Urine Ketones (Negative) mg/dL Ur Blood (Man) (Negative) Urine Nitrate (Negative) Urine Bilirubin (Negative) Urine Urobilinogen (<2.0) mg/dL Leukocyte Esterase Rfl (Negative) TIFFANY/UL Urine RBC (0-2) /hpf Urine WBC (0-3) /hpf Ur Squamous Epith Cells (Few) /hpf Urine Bacteria /hpf Urine Casts <Rebecca Mcgovern MD - Last Filed: 12/05/24 11:55> Discharge Plan Discharge Clinical Impression: Sacral decubitus ulcer Qualifiers: Pressure injury stage: stage 4 Qualified Code(s): L89.154 - Pressure ulcer of sacral region, stage 4 <Alka German PA-C - Last Filed: 12/04/24 20:30> Patient Disposition: Still a Patient <Alka German PA-C - Last Filed: 12/04/24 20:30> Condition: Stable <Alka German PA-C - Last Filed: 12/04/24 20:30>
--- NOTE | 2024-12-04 19:14 | PC.NURSE ---
Assumed care of pt from MARK Stuart at this time. Pt currently at CT.
[2024-12-04] MEDS: CEFEPIME 2 GM/NS 50 ML 2 GM/50 ML BAG IVPB (20:02)
[2024-12-04 20:25] LABS: Erythrocyte Sedimentation Rate 133 mm/hr (0-20)
--- NOTE | 2024-12-04 20:27 | P.HP_ITS ---
H&P: HPI History of Present Illness Date/Time: 12/04/24 20:27 Chief Complaint: Back pain Narrative: This is a 74-year-old male with past medical history significant for detected cord syndrome, paraplegia, chronic decubitus in the sacral area, chronic indwelling Zheng catheter, neurogenic bladder, chronic pain, chronic constipation. Patient presents to the emergency room with pain localized to the sacral area, worsening, he was found to have malodorous discharge from ulcer. Preliminary workup was significant for leukocytosis with CBC white blood cell count 83094, platelet count in the 534,000. Patient has been admitted for further evaluation management and treatment. CLINICAL INDICATION: Sacral ulcer COMPARISON: 11/06/2024, CT examination of the abdomen and pelvis. TECHNIQUE: Multiple contiguous axial images of the pelvis were performed following the administration of intravenous contrast The dose-length product (DLP) was 583.69 mGy-cm. Automated exposure control and iterative reconstruction technique were employed. FINDINGS/OBSERVATIONS: Redemonstration of a large left renal cyst, unchanged from prior. The appendix is of normal caliber (axial series, images 39 through 58). The bladder is decompressed with a Zheng catheter, limiting its evaluation. Infiltration of the presacral fat is redemonstrated. Multiple punctate foci of air are identified within the soft tissues extending from the coccyx and extending caudally approximately 12 cm to the level of the perineum. This focus measures 3.1 x 5.1 x 20 cm (anterior to posterior x medial to lateral x cranial to caudal dimension). No punctate foci of air are identified extending along the fascial planes, as this appears to be isolated to the left of midline within the soft tissues. IMPRESSION: Sacral decubitus ulcer, with measurements as detailed above. Review of Systems Review of Systems: Back pain, sacral wound, generalized weakness PMFSH Past Medical History Medical History (Updated 12/05/24 @ 02:54 by Bradley Daniels MD) Leukocytosis Chronic anemia Deep venous thrombosis Tethered spinal cord Benign prostatic hyperplasia Chronic kidney disease Neurogenic bladder Neurogenic bowel, not elsewhere classified Paraplegia, incomplete Thoracic myelopathy Bladder stones Bladder cancer Requiring excision of tumor Surgical History Surgical History Spinal cord stimulator status History of bladder surgery excision of bladder tumor History of back surgery (10/02/24) posterior lumbar thoracic spinal fusion with instrumentation, 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 given compression of thoracic myelopathy at [place] Family History Family History Father Acute myocardial infarction, Onset Age: 57 Patient's father is Mother Patient's mother is Unknown Family history not known due to adoption Other Unknown family medical history Social History Social History Social History: Surrogate medical decision maker: Gricelda Delgado, spouse. Code status: Full code. Smoking status: Never smoker Second hand tobacco smoke exposure: No Alcohol intake: never Substance use: never Substance use type: does not use Do You Feel Safe in your Home?: Yes Lack of Transportation: No Lack of Food: Never True Current Housing: I Have Housing Concerned About Future Housing: No Difficulty Paying Gas/Electric Bills: No Difficulty Paying for Meds: No Currently Unemployed: No Education: High School Diploma/GED Difficulty w/ Childcare or Family Care: No Living arrangements: with family Additional living arrangements comments: Lives with spouse in [place]. They have 3 children. Occupation/Education: retired Additional occupation/education comments: [employer] care concerns: No Meds Home Medications and Allergies Home Medications ?Medication ?Instructions ?Recorded ?Confirmed ?Type Florastor 1 cap PO DAILY 10/14/24 12/04/24 History acetaminophen 2 tablet BYMOUTH Q6H PRN Pain 10/14/24 12/04/24 History docusate sodium 100 mg capsule 100 mg PO BID 10/14/24 12/04/24 History polyethylene glycol 3350 17 gram 17 g PO BID PRN Constipation 10/14/24 12/04/24 History oral powder packet (Miralax) (First line) sennosides 8.6 mg tablet (senna) 8.6 mg PO BID 10/14/24 12/04/24 History apixaban 5 mg tablet 5 mg PO BID #60 tabs 11/05/24 12/04/24 Rx baclofen 10 mg tablet 10 mg PO BID Spasms #30 tabs 11/05/24 12/04/24 Rx finasteride 5 mg tablet 5 mg PO DAILY #30 tabs 11/05/24 12/04/24 Rx lidocaine 4 % topical patch 1 patch transdermal DAILY #7 ea 11/05/24 12/04/24 Rx (Lidocaine Pain Relief) oxycodone 5 mg tablet 5 mg PO Q8H PRN Pain #21 tabs 11/05/24 12/04/24 Rx tamsulosin 0.4 mg capsule 0.4 mg PO HS #30 caps 11/05/24 12/04/24 Rx duloxetine 30 mg capsule,delayed 30 mg PO BID 12/04/24 12/04/24 History release gabapentin 300 mg capsule 300 mg PO .q8hr 12/04/24 12/04/24 History Allergies Allergy/AdvReac Type Severity Reaction Status Date / Time Sulfa (Sulfonamide Allergy Unknown Unknown Verified 10/14/24 15:51 Antibiotics) Vital Signs Vital Signs - 24 hr 12/04/24 16:04 12/04/24 16:16 12/04/24 16:31 Temperature 98.1 F 97.9 F Pulse Rate 88 78 80 Respiratory Rate 16 16 16 Blood Pressure 114/93 H 120/70 134/78 Pulse Oximetry 97 97 98 Oxygen Delivery Room Air 12/04/24 16:46 12/04/24 17:01 12/04/24 17:31 Temperature 97.8 F 97.7 F Pulse Rate 76 78 80 Respiratory Rate 16 16 16 Blood Pressure 117/75 120/70 123/76 Pulse Oximetry 98 98 98 Oxygen Delivery 12/04/24 17:46 12/04/24 18:16 12/04/24 18:46 Temperature 97.9 F 97.7 F Pulse Rate 76 78 80 Respiratory Rate 16 16 16 Blood Pressure 137/68 127/70 119/72 Pulse Oximetry 98 98 97 Oxygen Delivery 12/04/24 19:16 Temperature Pulse Rate 72 Respiratory Rate 16 Blood Pressure 121/60 Pulse Oximetry 96 Oxygen Delivery Exam Narrative: lying in bed Const: General: comfortable, no acute distress, well developed, alert, awake, ill appearing chronically and average body habitus Nutritional Appearance: average body habitus Orientation/consciousness: patient oriented x3 HENMT: Head: normal to inspection, normocephalic and atraumatic Ears: hearing grossly normal bilaterally Face/Nose/Sinus: normal facial exam Face and sinus: normal facial exam Eyes: General: appearance normal, both eyes and all related structures Pupils: Equal, round and reactive pupils present EOM: EOMs intact bilaterally Neck: Neck: full ROM, no lymphadenopathy and no JVD Thyroid: thyroid normal Lymphatic: no lymphadenopathy noted Resp: Effort & Inspection: normal respiratory effort and able to speak in complete sentences Auscultation: clear to auscultation bilaterally Cardio: Jugular venous distension: no JVD Rate: regular rate Rhythm: regular rhythm Heart sounds: S1 normal heart sound present and S2 normal heart sound present GI: GI Palp: Yes Soft to palpation and Yes No hepatosplenomegaly present : General: Yes deferred Urinary Catheter: Urinary Catheter: patent and draining Skin: Rashes: no rashes Wounds: wounds noted (Sacral) Neuro: General: patient oriented x3 and CN's II-XI intact bilaterally Cranial nerves: Yes CN's II-XII intact bilaterally and Yes Equal, round and reactive pupils present Cognition (Neuro): normal cognition Speech: normal speech Gait exam (Neuro): Other gait observations present (Paraplegic) Extrem: Other: Unna boots on H&P: Results Labs Labs: Short CBC 12/04/24 Range/Units 16:40 WBC 19.4 H (4.5-10.0) K/mm3 Hgb 11.4 L (14.0-18.0) g/dL Hct 35.6 L (42.0-52.0) % Plt Count 534 H D (150-375) k/mm3 BMP 12/04/24 16:40 Sodium 136 L Potassium 4.5 Chloride 99 Carbon Dioxide 29 BUN 21 H D Creatinine 0.89 Glucose 107 Calcium 9.7 Liver Function 12/04/24 Range/Units 16:40 Total Bilirubin 0.5 (0.2-1.3) mg/dL AST 35 (17-59) U/L ALT 62 H (6-50) U/L Alkaline Phosphatase 182 H (38-126) U/L Albumin 3.7 (3.5-5.1) g/dL Assessment and Plan Assessment and plan (1) Sacral decubitus ulcer: Qualifiers: Pressure injury stage: stage 4 Qualified Code(s): L89.154 - Pressure ulcer of sacral region, stage 4 Code(s): L89.159 - Pressure ulcer of sacral region, unspecified stage Status: Acute Assessment and Plan: Admit to regular medical floor Patient started on broad-spectrum antibiotics as per antibiotic stewardship Wound care consult General surgery consult Supportive care (2) Neurogenic bladder: Code(s): N31.9 - Neuromuscular dysfunction of bladder, unspecified Status: Acute Assessment and Plan: Chronic indwelling Zheng catheterization (3) Paraplegia, incomplete: Code(s): G82.22 - Paraplegia, incomplete Status: Acute Assessment and Plan: Supportive care (4) Myelopathy: Code(s): G95.9 - Disease of spinal cord, unspecified Status: Acute Assessment and Plan: History of tethered cord syndrome (5) Weakness: Code(s): R53.1 - Weakness Status: Acute Assessment and Plan: Secondary to chronic illness (6) Thrombocytosis: Code(s): D75.839 - Thrombocytosis, unspecified Status: Acute Assessment and Plan: Likely to be reactive (7) Leukocytosis: Code(s): D72.829 - Elevated white blood cell count, unspecified Status: Acute Assessment and Plan: Likely secondary to wound infection (8) Chronic indwelling Zheng catheter: Code(s): Z97.8 - Presence of other specified devices Status: Acute Assessment and Plan: Catheter care (9) Constipation: Code(s): K59.00 - Constipation, unspecified Status: Acute Assessment and Plan: Bowel regimen Hospitalist MIPS Advance Care Plan I have confirmed that the patient's Advanced Care Plan is present, code status is documented, or surrogate decision maker is listed in patient medical record.: Yes Medication Reconciliation I have utilized all available resources to obtain, update and review the patients current medications (includes all prescriptions, OTC, herbals, cannabis, and nutritional supplements).: Yes
[2024-12-04] MEDS: metroNIDAZOLE 500 MG/ISO 100ML 500 MG/100 ML BAG 100 MG IVPB (20:51)
[2024-12-04 21:02] LABS: CRP 16.3 mg/dL (<1.0)
[2024-12-04] MEDS: VANCOMYCIN 1,250 MG/NS 250 ML 1,250 MG/250 ML BAG 166.67 MG IVPB (22:04)
--- NOTE | 2024-12-04 22:10 | ADMGEN ---
This patient, Ryan Delgado, was admitted to [facility] Surg Room 315-02. Patient/family oriented to hospital policies and general routines including ID bracelet, bed and alarms, visiting hours, pain management, procedures, bathroom and other care routines, personal items, smoking policy, room service/diet, and visiting hours. Information on how to activate the Rapid Response Team has been discussed. Patient/Family are encouraged to report perceived risks to care and to ask questions if they do not understand what they are told or what they should do.
[2024-12-04] MEDS: HYDROmorphone HCL INJ (*CRX) 1 MG/ML SYR IV PUSH (23:18)
[2024-12-04] MEDS: VANCOMYCIN 1,000 MG/NS 250 ML 1,000 MG/250 ML BAG 250 MG IVPB (23:45)
[2024-12-04 23:49] LABS: Add Urine Microscopic? YES; Appearance Urine Clear (Clear); Bacteria Urine None Seen /hpf; Bilirubin Urine Negative (Negative); Blood Urine Negative (Negative); Color Urine Yellow (Yellow); Glucose Urine UA Negative (Negative); Ketones Urine Negative (Negative); Leukocyte Esterase Ur Negative LEU/UL (Negative); Nitrate Urine Negative (Negative); Non Pathogenic Casts 0-2; Protein Urine Trace mg/dL (Negative); RBC Urine 0-2 /hpf (0-2); Specific Grav Ur > 1.045 (1.001-1.035); Squamous Epithelial Cell Urine None Seen /hpf (Few); Urobilinogen Urine 0.2 mg/dL (<2.0); WBC Urine 0-5 /hpf (0-3)
[2024-12-05] MEDS: GABAPENTIN 300 MG CAPSULE PO (01:32)
[2024-12-05] MEDS: oxyCODONE HCL (*CRX) 5 MG TAB IR PO ×2 (01:32→20:59)
[2024-12-05] MEDS: ACETAMINOPHEN 325 MG TABLET 650 MG BY MOUTH (05:50)
[2024-12-05] MEDS: metroNIDAZOLE 500 MG/ISO 100ML 500 MG/100 ML BAG 100 MG IVPB ×2 (05:50→16:01)
[2024-12-05 06:00] VITALS: BP 125/69; PULSE 71; RESP 18; TEMP 37.1; O2SAT 96
[2024-12-05] MEDS: HYDROmorphone HCL INJ (*CRX) 1 MG/ML SYR IV PUSH ×2 (06:57→09:47)
[2024-12-05 07:37] LABS: Estimated CRCL calculation 70 ml/min; Estimated Glomerular Filt Rate > 60
[2024-12-05] MEDS: LIDOCAINE 5% PATCH 1 PATCH TRANSDERM (08:35)
[2024-12-05] MEDS: FINASTERIDE 5 MG TABLET PO (08:36)
[2024-12-05] MEDS: CEFEPIME 2 GM/NS 50 ML 2 GM/50 ML BAG IVPB ×2 (08:36→20:30)
[2024-12-05] MEDS: BACLOFEN 10 MG TABLET PO ×2 (08:36→20:28)
[2024-12-05] MEDS: DULoxetine HCL 30 MG CAPSULE.DR PO ×2 (08:36→20:28)
[2024-12-05] MEDS: DOCUSATE SODIUM 100 MG CAPSULE PO ×2 (08:36→20:28)
[2024-12-05] MEDS: APIXABAN 5 MG TABLET PO ×2 (08:36→20:28)
[2024-12-05 08:46] VITALS: O2SAT 96
[2024-12-05] MEDS: SACCHAROMYCES BOULARDII 250 MG CAPSULE PO (09:47)
--- NOTE | 2024-12-05 10:57 | P.CONGS_ITS ---
Assessment and Plan Assessment and plan (1) Sacral decubitus ulcer: Qualifiers: Pressure injury stage: stage 4 Qualified Code(s): L89.154 - Pressure ulcer of sacral region, stage 4 Code(s): L89.159 - Pressure ulcer of sacral region, unspecified stage Status: Acute Assessment and Plan: * The patient has an unstageable sacral decubitus ulcer with foul odor and necrotic tissue that will require surgical debridement. The opening to the wound is small and it is difficult to determine the size or extent of the wound, although on exam this appears to be fairly large beneath the small opening to the necrotic wound. CT scan of the pelvis did not show any evidence of osteomyelitis. We would recommend to continue IV antibiotics and we will start local wound care. I will make him NPO for now until we determine when he can be added onto the surgery schedule. I discussed with the patient and his family that he also will require frequent turning and repositioning to minimize any pressure to this wound. He should have adequate nutrition and try to avoid having this wound get soiled. He reports stool incontinence at times, but is able to tell when he has had a bowel movement. We discussed keeping the wound clean and the importance of adequate and prompt cleaning after bowel movements. I will also order a specialty mattress. He is essentially bed bound since September and it sounds like his is concerned about taking full care of him at home. I discussed the case with CC as he will likely need placement on discharge to a [facility] facility. (2) Leukocytosis: Code(s): D72.829 - Elevated white blood cell count, unspecified Status: Acute Assessment and Plan: * Likely related to sacral decubitus ulcer. Continue IV antibiotics. See plan above. Trend labs. (3) Neurogenic dysfunction of the urinary bladder: Code(s): N31.9 - Neuromuscular dysfunction of bladder, unspecified Status: Acute Assessment and Plan: * He has had a Zheng in place since his surgery in September and is due to have his catheter exchanged. Management per Hospitalist. (4) Postoperative deep vein thrombosis (DVT): Code(s): T81.89XA - Other complications of procedures, not elsewhere classified, initial encounter; I82.409 - Acute embolism and thrombosis of unspecified deep veins of unspecified lower extremity Status: Acute Assessment and Plan: * RLE DVT following his surgery in September, currently on Eliquis. (5) CKD (chronic kidney disease): Code(s): N18.9 - Chronic kidney disease, unspecified Status: Acute (6) Chronic anemia: Code(s): D64.9 - Anemia, unspecified Status: Acute (7) Spinal cord stimulator status: Code(s): Z96.89 - Presence of other specified functional implants Status: Acute Assessment and Plan: * SCS placed 1 year ago. This is close in proximity to the wound but does not obviously communicate on exam or on the CT scan. Will discuss with Dr. Jones. (8) Paraplegia, incomplete: Code(s): G82.22 - Paraplegia, incomplete Status: Acute (9) Thoracic myelopathy: Code(s): M47.14 - Other spondylosis with myelopathy, thoracic region Status: Acute Plan I have discussed the patient's case and plan of care with Dr. Jones. Thank you for allowing us to see the patient in consultation and we will continue to follow along with you. History of Present Illness Consult details Consult date: 12/05/24 Reason for consult: other (Sacral ulcer) Requesting physician: Alka German PA-C Narrative: This is a 74-year-old man with a history of incomplete paraplegia related to thoracic myelopathy following surgery in September of 2024, CKD, BPH, neurogenic bladder with Zheng catheter in place since his recent surgery in September of 2024, chronic anemia, bladder cancer, and DVT on Eliquis, who we have been asked to see in surgical consultation for a sacral ulcer. The patient has had multiple spinal surgeries since 2008 due to history of a tethered spinal cord. He has had progressive neuropathy and chronic right hip pain. Most recently in September of 2024, he had a T3-5 laminectomy and decompression, arachnoid cyst wall fenestration at [facility]. He was reportedly ambulatory with a walker prior to the surgery, but has been bed-bound since his September admission. [facility], where he was discharged home in mid October. His has been caring for him and they have been using a Dany lift. He is followed by home health. He was found to have a small sacral wound within the past month once he was home. Over the past 10 days, his has noticed significant progression of the wound. It has gotten larger and deeper. Yesterday, his home health nurse recommended he go to the ED for evaluation of the sacral wound. He denies any fever, chills, nausea, vomiting, or other complaints at this time. His family mentions that he has had right hip pain that has progressed over the past few weeks and is now constant. He is unable to sleep due to the right hip pain. His daughter reports his neurosurgeon had ordered an MRI scheduled for this Wednesday due to the progressive hip pain. He also has a spinal cord stimulator that was placed about a year ago. In the ED, he was afebrile and vital signs stable. [place] [address], CRP 16.3, lactic acid 1.7. CT of the pelvis with IV contrast showed a sacral decubitus ulcer with multiple punctate foci of air within the soft tissues extending from the coccyx and extending caudally measuring 3.1 x 5.1 x 20 cm. No punctate foci of air are identified extending along the fascial planes. No CT evidence of osteomyelitis. He was admitted and started on IV cefepime, Flagyl, and vancomycin. He is currently on Eliquis after finding a right lower extremity DVT following his most recent surgery. Sacral wound culture and blood cultures pending. Review of Systems 2 Review of Systems: All systems reviewed & are unremarkable except as noted in HPI and below PMFSH Past Medical History Medical History (Updated 12/05/24 @ 02:54 by Bradley Daniels MD) Leukocytosis Chronic anemia Deep venous thrombosis Tethered spinal cord Benign prostatic hyperplasia Chronic kidney disease Neurogenic bladder Neurogenic bowel, not elsewhere classified Paraplegia, incomplete Thoracic myelopathy Bladder stones Bladder cancer Requiring excision of tumor Surgical History Surgical History Spinal cord stimulator status History of bladder surgery excision of bladder tumor History of back surgery (10/02/24) posterior lumbar thoracic spinal fusion with instrumentation, 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 given compression of thoracic myelopathy at [facility] Family History Family History Father Acute myocardial infarction, Onset Age: 57 Patient's father is Mother Patient's mother is Unknown Family history not known due to adoption Other Unknown family medical history Social History Social History Social History: Surrogate medical decision maker: Gricelda Delgado, spouse. Code status: Full code. Smoking status: Never smoker Second hand tobacco smoke exposure: No Alcohol intake: never Substance use: never Substance use type: does not use Do You Feel Safe in your Home?: Yes Lack of Transportation: No Lack of Food: Never True Current Housing: I Have Housing Concerned About Future Housing: No Difficulty Paying Gas/Electric Bills: No Difficulty Paying for Meds: No Currently Unemployed: No Education: High School Diploma/GED Difficulty w/ Childcare or Family Care: No Living arrangements: with family Additional living arrangements comments: Lives with spouse in [place]. They have 3 children. Occupation/Education: retired Additional occupation/education comments: [employer] Spiritual care concerns: No Meds Home Medications and Allergies Home Medications ?Medication ?Instructions ?Recorded ?Confirmed ?Type Florastor 1 cap PO DAILY 10/14/24 12/04/24 History acetaminophen 2 tablet BYMOUTH Q6H PRN Pain 10/14/24 12/04/24 History docusate sodium 100 mg capsule 100 mg PO BID 10/14/24 12/04/24 History polyethylene glycol 3350 17 gram 17 g PO BID PRN Constipation 10/14/24 12/04/24 History oral powder packet (Miralax) (First line) sennosides 8.6 mg tablet (senna) 8.6 mg PO BID 10/14/24 12/04/24 History apixaban 5 mg tablet 5 mg PO BID #60 tabs 11/05/24 12/04/24 Rx baclofen 10 mg tablet 10 mg PO BID Spasms #30 tabs 11/05/24 12/04/24 Rx finasteride 5 mg tablet 5 mg PO DAILY #30 tabs 11/05/24 12/04/24 Rx lidocaine 4 % topical patch 1 patch transdermal DAILY #7 ea 11/05/24 12/04/24 Rx (Lidocaine Pain Relief) oxycodone 5 mg tablet 5 mg PO Q8H PRN Pain #21 tabs 11/05/24 12/04/24 Rx tamsulosin 0.4 mg capsule 0.4 mg PO HS #30 caps 11/05/24 12/04/24 Rx duloxetine 30 mg capsule,delayed 30 mg PO BID 12/04/24 12/04/24 History release gabapentin 300 mg capsule 300 mg PO .q8hr 12/04/24 12/04/24 History Allergies Allergy/AdvReac Type Severity Reaction Status Date / Time Sulfa (Sulfonamide Allergy Unknown Unknown Verified 10/14/24 15:51 Antibiotics) Vital Signs Vital Signs - 24 hr 12/04/24 16:04 12/04/24 16:16 12/04/24 16:31 Temperature 98.1 F 97.9 F Pulse Rate 88 78 80 Respiratory Rate 16 16 16 Blood Pressure 114/93 H 120/70 134/78 Pulse Oximetry 97 97 98 Oxygen Delivery Room Air 12/04/24 16:46 12/04/24 17:01 12/04/24 17:31 Temperature 97.8 F 97.7 F Pulse Rate 76 78 80 Respiratory Rate 16 16 16 Blood Pressure 117/75 120/70 123/76 Pulse Oximetry 98 98 98 Oxygen Delivery 12/04/24 17:46 12/04/24 18:16 12/04/24 18:46 Temperature 97.9 F 97.7 F Pulse Rate 76 78 80 Respiratory Rate 16 16 16 Blood Pressure 137/68 127/70 119/72 Pulse Oximetry 98 98 97 Oxygen Delivery 12/04/24 19:16 12/04/24 21:23 12/04/24 22:00 Temperature 98.8 F Pulse Rate 72 71 70 Respiratory Rate 16 14 18 Blood Pressure 121/60 127/69 Pulse Oximetry 96 97 99 Oxygen Delivery 12/05/24 06:00 12/05/24 08:46 Temperature 98.8 F Pulse Rate 71 Respiratory Rate 18 Blood Pressure 125/69 Pulse Oximetry 96 96 Oxygen Delivery Room Air Exam 2 Const: General: comfortable and no acute distress Nutritional Appearance: a verage body habitus Orientation/consciousness: patient oriented x3 HENMT: Head: normocephalic and atraumatic Ears: hearing grossly normal bilaterally Mouth: Yes moist mucous membranes Eyes: General: appearance normal, both eyes and all related structures P upils: Equal, round and reactive pupils present Neck: Neck: normal visual inspection and full ROM Resp: Effort & Inspection: no respiratory distress Auscultation: clear to auscultation bilaterally Cardio: Rate: regular rate Rhythm: regular rhythm GI: Inspection: non-distended and no visible herniation GI Palp: Yes Soft to palpation, No Tenderness to palpation present (GI), No Guarding due to palpation present (GI), Yes No hepatosplenomegaly present and No Rebound tenderness present Auscultation: normal bowel sounds Rectal Exam: deferred Urinary Catheter: Urinary Catheter: patent and draining and urine clear Skin: Other: There is a 2 x 1 cm open sacral wound with foul odor and depth of 2-3 cm with [place] necrotic tissue in the base, the wound is an opening to a larger cavity with undermining circumferentially. The wound appears to extend at least 6 cm left laterally, 5 cm right laterally, about 3 cm cephalad, and 3 cm caudally. No crepitus with palpation around the wound. There is an area of maceration about 2 cm inferior to the wound that has a small area of skin breakdown that overlies the wound but does not completely extend into the wound cavity. His spinal cord stimulator is to the left and superior to the wound and when probing in the wound, it does not obviously tunnel to the stimulator but this is difficult to assess given the limited visibility of the wound base within the small opening to the wound. No erythema or tenderness over the spinal cord stimulator or the skin surrounding the wound. Neuro: General: no focal motor deficits Speech: normal speech Other: Bilateral upper extremities with good active movement and ROM. Limited ROM of lower extremities, paraplegia. Able to wiggle toes on the left but flaccid on the right lower extremity. Extrem: General: no edema and other (waffle boots in place on bilateral feet) Psych: Mental Status: mental status grossly normal Attitude: cooperative Insight: Good insight present (Psych) Judgement: Good judgement present (Psych) Results Labs 12/04/24 16:40 12/05/24 06:40 Labs: Abnormal lab results 12/04/24 12/04/24 12/04/24 Range/Units 16:40 20:17 23:21 WBC 19.4 H (4.5-10.0) K/mm3 RBC 3.76 L (4.6-6.20) M/mm3 Hgb 11.4 L (14.0-18.0) g/dL Hct 35.6 L (42.0-52.0) % Plt Count 534 H D (150-375) k/mm3 Immature Gran % (Auto) 0.9 H (0-0.5) % Neut % (Auto) 81.8 H (45.5-73.1) % Lymph % (Auto) 8.6 L (18.3-44.2) % Banner # (Auto) 1.4 H (0.1-0.6) K/mm3 Abs Immat Gran (auto) 0.18 H (0.00-0.031) K/mm3 Absolute Neuts (auto) 15.8 H (1.3-6.7) K/mm3 ESR 133 H (0-20) mm/hr Sodium 136 L (137-145) mmol/L BUN 21 H D (9-20) mg/dL ALT 62 H (6-50) U/L Alkaline Phosphatase 182 H (38-126) U/L C-Reactive Protein 16.3 H (<1.0) mg/dL Ur Specific [place] > 1.045 H (1.001-1.035) Diabetes panel 12/04/24 12/05/24 Range/Units 16:40 06:40 Sodium 136 L (137-145) mmol/L Potassium 4.5 (3.4-5.0) mmol/L Chloride 99 (98-107) mmol/L Carbon Dioxide 29 (22-30) mmol/L BUN 21 H D (9-20) mg/dL Creatinine 0.89 0.86 (0.7-1.3) mg/dL Glucose 107 (65-110) mg/dL Calcium 9.7 (8.4-10.2) mg/dL AST 35 (17-59) U/L ALT 62 H (6-50) U/L Alkaline Phosphatase 182 H (38-126) U/L Total Protein 7.0 (6.3-8.2) g/dL Albumin 3.7 (3.5-5.1) g/dL Calcium panel 12/04/24 Range/Units 16:40 Calcium 9.7 (8.4-10.2) mg/dL Albumin 3.7 (3.5-5.1) g/dL Pituitary panel 12/04/24 12/05/24 Range/Units 16:40 06:40 Sodium 136 L (137-145) mmol/L Potassium 4.5 (3.4-5.0) mmol/L Chloride 99 (98-107) mmol/L Carbon Dioxide 29 (22-30) mmol/L BUN 21 H D (9-20) mg/dL Creatinine 0.89 0.86 (0.7-1.3) mg/dL Glucose 107 (65-110) mg/dL Calcium 9.7 (8.4-10.2) mg/dL Adrenal panel 12/04/24 12/05/24 Range/Units 16:40 06:40 Sodium 136 L (137-145) mmol/L Potassium 4.5 (3.4-5.0) mmol/L Chloride 99 (98-107) mmol/L Carbon Dioxide 29 (22-30) mmol/L BUN 21 H D (9-20) mg/dL Creatinine 0.89 0.86 (0.7-1.3) mg/dL Glucose 107 (65-110) mg/dL Calcium 9.7 (8.4-10.2) mg/dL Total Bilirubin 0.5 (0.2-1.3) mg/dL AST 35 (17-59) U/L ALT 62 H (6-50) U/L Alkaline Phosphatase 182 H (38-126) U/L Total Protein 7.0 (6.3-8.2) g/dL Albumin 3.7 (3.5-5.1) g/dL All other labs normal. Imaging Additional studies: ITS Impressions Pelvis CT 12/04/24 19:32 IMPRESSION: Sacral decubitus ulcer, with measurements as detailed above. Chest X-Ray 12/05/24 06:25 Impression: Linear left basilar scarring, otherwise clear lungs.
[2024-12-05 12:14] VITALS: BMI 27.5
--- NOTE | 2024-12-05 12:34 | P.PNIM_ITS ---
Progress Note: A&P Assessment and Plan (1) Sacral decubitus ulcer: Qualifiers: Pressure injury stage: stage 4 Qualified Code(s): L89.154 - Pressure ulcer of sacral region, stage 4 Code(s): L89.159 - Pressure ulcer of sacral region, unspecified stage Status: Acute (2) Neurogenic bladder: Code(s): N31.9 - Neuromuscular dysfunction of bladder, unspecified Status: Acute (3) Paraplegia, incomplete: Code(s): G82.22 - Paraplegia, incomplete Status: Acute (4) Myelopathy: Code(s): G95.9 - Disease of spinal cord, unspecified Status: Acute (5) Weakness: Code(s): R53.1 - Weakness Status: Acute (6) Thrombocytosis: Code(s): D75.839 - Thrombocytosis, unspecified Status: Acute (7) Leukocytosis: Code(s): D72.829 - Elevated white blood cell count, unspecified Status: Acute (8) Chronic indwelling Zheng catheter: Code(s): Z97.8 - Presence of other specified devices Status: Acute (9) Constipation: Code(s): K59.00 - Constipation, unspecified Status: Acute Plan This is a 74-year-old male presented with sacral pain has been worsening with associated malodorous discharge. Workup with leukocytosis WBC of 19 K> count of [address] abdomen pelvis showed sacral decubitus ulcer measuring 3.1 x5.1 x 20 cm. Multiple punctate foci of air identified within the soft tissue extending from the coccyx and extending caudally approximately 12 cm to the level of perineum. Chest x-ray with linear left basilar scarring otherwise clear lungs Wound care and general surgery consulted. Patient started on vancomycin cefepime and metronidazole. Blood cultures x2 were obtained. History of Pseudomonas in urine Infected Sacral decubitus ulcer Neurogenic bladder with indwelling Zheng catheter Right lower extremity DVT following surgery in September on Eliquis CKD stage 3 Chronic anemia Status post spinal cord stimulator placement Paraplegia BPH Thoracic myelopathy History of Bladder cancer status post excision of bladder tumor History of thoracic surgery for decompression many years ago with additional L4- L5 laminectomy and spinal cord stimulator placement November of 2023. He underwent further T3-5 laminoplasty for spinal cord compresion at T4 level. postoperatively patient continued to have right hip pain for which some MRI and myelogram had been planned this week per neurosurgery Dr. Robles. Family prefers to get this done as well will reach out to [place] for transfer DVT prophylaxis on Eliquis at home Code status full code Called [facility] and awaiting that call Back Subjective Date/time seen: 12/05/24 12:34 Interval history: Chart reviewed. Presented with sacral pain and discharge. Had some right hip pain that is being evaluated by Dr. Robles at [place] Review of Systems Review of Systems: All systems reviewed & are unremarkable except as noted in HPI and below Exam Narrative: GENERAL: Well-appearing, well-nourished, and in no acute distress. HEAD: Normocephalic, atraumatic. EYES: EOMI. ENT: Nares clear, no rhinorrhea or epistaxis. Mucous membranes moist. NECK: Supple. CHEST: Clear to auscultation. No respiratory distress. HEART: Regular rate and rhythm. No murmur heard. Normal peripheral pulses. ABDOMEN: Soft, nontender, nondistended, normal active bowel sounds. Zheng catheter in place draining clear yellow fluid EXTREMITIES: Normal range of motion. No edema.. SKIN: 2 cm x 1 cm stage IV sacral ulcer with biofilm at the base, tunneling beneath the skin to the left. Active malodorous drainage. Surrounding stage 1 and 2 ulcer with tenderness and blanching erythema NEURO: Alert and oriented x3. Chronic paraplegia Objective Data Vital Signs Vital Signs: Vital Signs - 24 hr 12/04/24 16:04 12/04/24 16:16 12/04/24 16:31 Temperature 98.1 F 97.9 F Pulse Rate 88 78 80 Respiratory Rate 16 16 16 Blood Pressure 114/93 H 120/70 134/78 Pulse Oximetry 97 97 98 Oxygen Delivery Room Air 12/04/24 16:46 12/04/24 17:01 12/04/24 17:31 Temperature 97.8 F 97.7 F Pulse Rate 76 78 80 Respiratory Rate 16 16 16 Blood Pressure 117/75 120/70 123/76 Pulse Oximetry 98 98 98 Oxygen Delivery 12/04/24 17:46 12/04/24 18:16 12/04/24 18:46 Temperature 97.9 F 97.7 F Pulse Rate 76 78 80 Respiratory Rate 16 16 16 Blood Pressure 137/68 127/70 119/72 Pulse Oximetry 98 98 97 Oxygen Delivery 12/04/24 19:16 12/04/24 21:23 12/04/24 22:00 Temperature 98.8 F Pulse Rate 72 71 70 Respiratory Rate 16 14 18 Blood Pressure 121/60 127/69 Pulse Oximetry 96 97 99 Oxygen Delivery 12/05/24 06:00 12/05/24 08:46 Temperature 98.8 F Pulse Rate 71 Respiratory Rate 18 Blood Pressure 125/69 Pulse Oximetry 96 96 Oxygen Delivery Room Air Intake/Output Intake/Output: Intake & Output 12/02/24 12/03/24 12/04/24 12/05/24 23:59 23:59 23:59 23:59 Intake Total 400 468 Output Total 900 Balance 400 -432 Meds/Results Medications: Active Medications Generic Name Dose Route Start Last Admin Trade Name Freq PRN Reason Stop Dose Admin Acetaminophen 650 mg 12/05/24 05:49 12/05/24 05:50 Acetaminophen 325 Mg Tablet BY MOUTH 650 mg Q6H PRN Administration Pain 1-3 Apixaban 5 mg 12/05/24 09:00 12/05/24 08:36 Apixaban 5 Mg Tablet PO 5 mg Q12HR FENG Administration Baclofen 10 mg 12/05/24 09:00 12/05/24 08:36 Baclofen 10 Mg Tablet PO 10 mg Q12HR FENG Administration Docusate Sodium 100 mg 12/05/24 09:00 12/05/24 08:36 Docusate Sodium 100 Mg Capsule PO 100 mg Q12HR FENG Administration Duloxetine HCl 30 mg 12/05/24 09:00 12/05/24 08:36 Duloxetine Hcl 30 Mg Capsule.Dr PO 30 mg Q12HR FENG Administration Finasteride 5 mg 12/05/24 09:00 12/05/24 08:36 Finasteride 5 Mg Tablet PO 5 mg DAILY FENG Administration Gabapentin 300 mg 12/05/24 06:00 12/05/24 01:32 Gabapentin 300 Mg Capsule PO 300 mg Q8HR FENG Administration Hydromorphone HCl 1 mg 12/04/24 22:56 12/05/24 09:47 Hydromorphone Hcl Inj (*Crx) 1 Mg/Ml Syr IV PUSH 1 mg Q3H PRN Administration Pain Rated 7-10 Cefepime HCl 2 gm in 50 mls @ 100 mls/hr 12/05/24 09:00 12/05/24 08:36 Maxipime 2 Gm/Ns 50 Ml IVPB 100 mls/hr Q12H FENG Administration Metronidazole 500 mg in 100 mls @ 100 mls/hr 12/05/24 06:00 12/05/24 06:50 Flagyl 500 Mg/Iso Soln 100 Ml IVPB Infused Q8H FENG Infusion Vancomycin HCl 1,500 mg in 500 mls @ 250 mls/hr 12/05/24 16:00 Vancomycin 1,500 Mg/Ns 500 Ml IVPB Q18H FENG Lidocaine 1 patch 12/05/24 09:00 12/05/24 08:35 Lidocaine 5% Patch TRANSDERM 1 patch DAILY FENG Administration Oxycodone HCl 5 mg 12/05/24 01:10 12/05/24 01:32 Oxycodone Hcl (*Crx) 5 Mg Tab Ir PO 5 mg Q8H PRN Administration Pain 7-10 Polyethylene Glycol 17 gm 12/05/24 01:10 Polyethylene Glycol 3350 17 Gm Powd.Pack PO BID PRN Constipation (First line) Saccharomyces Boulardii 1 mg 12/05/24 09:00 12/05/24 09:47 Saccharomyces Boulardii 250 Mg Capsule PO 1 mg DAILY FENG Administration Tamsulosin HCl 0.4 mg 12/05/24 21:00 Tamsulosin Hcl 0.4 Mg Capsule PO HS [facility] Radiology Results: ITS Impressions Pelvis CT 12/04/24 19:32 IMPRESSION: Sacral decubitus ulcer, with measurements as detailed above. Chest X-Ray 12/05/24 06:25 Impression: Linear left basilar scarring, otherwise clear lungs. Labs Labs: Laboratory Results - last 24 hr 12/04/24 12/04/24 12/04/24 16:40 20:17 23:21 WBC 19.4 H RBC 3.76 L Hgb 11.4 L Hct 35.6 L MCV 94.7 MCH 30.3 MCHC 32.0 RDW 12.6 Plt Count 534 H D MPV 8.8 Immature Gran % (Auto) 0.9 H Neut % (Auto) 81.8 H Lymph % (Auto) 8.6 L Owen % (Auto) 7.0 Eos % (Auto) 1.3 Baso % (Auto) 0.4 Lymph # (Auto) 1.66 Owen # (Auto) 1.4 H Eos # (Auto) 0.3 Baso # (Auto) 0.1 Abs Immat Gran (auto) 0.18 H Absolute Neuts (auto) 15.8 H Absolute Nucleated RBC 0.000 Nucleated RBC % 0.0 ESR 133 H Sodium 136 L Potassium 4.5 Chloride 99 Carbon Dioxide 29 Anion Gap 8 BUN 21 H D Creatinine 0.89 Estim Creat Clear Calc 68 Estimated GFR > 60 Glucose 107 Lactic Acid 1.7 Calcium 9.7 Total Bilirubin 0.5 AST 35 ALT 62 H Alkaline Phosphatase 182 H C-Reactive Protein 16.3 H Total Protein 7.0 Albumin 3.7 Urine Color Yellow Urine Appearance Clear Urine pH 5.0 Ur Specific [place] > 1.045 H Urine Protein Trace Urine Glucose (UA) Negative Urine Ketones Negative Ur Blood (Man) Negative Urine Nitrate Negative Urine Bilirubin Negative Urine Urobilinogen 0.2 Leukocyte Esterase Rfl Negative Urine RBC 0-2 Urine WBC 0-5 Ur Squamous Epith Cells None seen Urine Bacteria None seen Urine Casts 0-2 12/05/24 06:40 WBC RBC Hgb Hct MCV MCH MCHC RDW Plt Count MPV Immature Gran % (Auto) Neut % (Auto) Lymph % (Auto) Owen % (Auto) Eos % (Auto) Baso % (Auto) Lymph # (Auto) Owen # (Auto) Eos # (Auto) Baso # (Auto) Abs Immat Gran (auto) Absolute Neuts (auto) Absolute Nucleated RBC Nucleated RBC % ESR Sodium Potassium Chloride Carbon Dioxide Anion Gap BUN Creatinine 0.86 Estim Creat Clear Calc 70 Estimated GFR > 60 Glucose Lactic Acid Calcium Total Bilirubin AST ALT Alkaline Phosphatase C-Reactive Protein Total Protein Albumin Urine Color Urine Appearance Urine pH Ur Specific [place] Urine Protein Urine Glucose (UA) Urine Ketones Ur Blood (Man) Urine Nitrate Urine Bilirubin Urine Urobilinogen Leukocyte Esterase Rfl Urine RBC Urine WBC Ur Squamous Epith Cells Urine Bacteria Urine Casts
[2024-12-05 12:56] LABS: Basophils Absolute Auto 0.1 K/mm3 (0.0-0.1); Basophils Percent Auto 0.3 % (0.2-1.2); Eosinophils Absolute Auto 0.1 K/mm3 (0-0.3); Eosinophils Percent Auto 0.9 % (0-4.4); Hemoglobin 9.9 g/dL (14.0-18.0); Immature Granulocyte Absolute 0.14 K/mm3 (0.00-0.031); Immature Granulocyte Percent A 0.9 % (0-0.5); Lymphocytes Absolute Auto 1.42 K/mm3 (0.9-3.2); Lymphocytes Percent Auto 8.7 % (18.3-44.2); Mean Corpuscular HGB Conc 31.9 g/dl (32-36); Mean Corpuscular Hemoglobin 30.3 pg (26-34); Mean Corpuscular Volume 94.8 fl (80-100); Monocytes Absolute Auto 1.2 K/mm3 (0.1-0.6); Monocytes Percent Auto 7.4 % (2.6-8.5); Neutrophils Absolute Auto 13.4 K/mm3 (1.3-6.7); Neutrophils Percent Auto 81.8 % (45.5-73.1); Platelet Count Result 475 k/mm3 (150-375); Red Blood Count 3.27 M/mm3 (4.6-6.20); Red Cell Distribution Width 12.7 % (11.5-14.5); White Blood Count 16.4 K/mm3 (4.5-10.0)
[2024-12-05 13:14] LABS: Alanine Aminotransferase 46 U/L (6-50); Albumin Level 2.9 g/dL (3.5-5.1); Alkaline Phosphatase 145 U/L (38-126); Anion Gap 9 mmol/L (4-12); Aspartate Amino Transferase 26 U/L (17-59); Bilirubin,Total 0.5 mg/dL (0.2-1.3); Blood Urea Nitrogen 20 mg/dL (9-20); Calcium 9.1 mg/dL (8.4-10.2); Carbon Dioxide 23 mmol/L (22-30); Chloride 102 mmol/L (98-107); Estimated CRCL calculation 70 ml/min; Estimated Glomerular Filt Rate > 60; Glucose 112 mg/dL (65-110); Magnesium 2.3 mg/dL (1.6-2.3); Potassium 4.5 mmol/L (3.4-5.0); Sodium 134 mmol/L (137-145)
[2024-12-05 14:00] VITALS: BP 134/65; PULSE 72; RESP 14; TEMP 36.5; O2SAT 99
[2024-12-05] MEDS: VANCOMYCIN 1,500 MG/NS 500 ML 1,500 MG/500 ML BAG 250 MG IVPB (16:00)
[2024-12-05] MEDS: SOD HYPOCHLORITE 1/4 STRENGTH 473 ML 1 APPLIC TOPICAL (16:01)
[2024-12-05 20:00] VITALS: PULSE 70; RESP 16; O2SAT 99
[2024-12-05] MEDS: TAMSULOSIN HCL 0.4 MG CAPSULE PO (20:28)
[2024-12-05] MEDS: GABAPENTIN 300 MG CAPSULE 900 MG PO (20:28)
[2024-12-05 20:42] VITALS: BP 133/65; PULSE 70; RESP 16; TEMP 38.2; O2SAT 99
[2024-12-06] VITALS (12 sets, daily range): BP systolic 106–155; BP diastolic 54–82; PULSE 67–70; RESP 12–23; TEMP 36.2–36.4; O2SAT 92–100
[2024-12-06] MEDS: HYDROmorphone HCL INJ (*CRX) 1 MG/ML SYR IV PUSH (03:00)
[2024-12-06] MEDS: metroNIDAZOLE 500 MG/ISO 100ML 500 MG/100 ML BAG 100 MG IVPB ×3 (04:45→14:40)
[2024-12-06] MEDS: GABAPENTIN 300 MG CAPSULE 900 MG PO ×2 (04:46→19:40)
[2024-12-06 06:59] LABS: Basophils Absolute Auto 0.1 K/mm3 (0.0-0.1); Basophils Percent Auto 0.3 % (0.2-1.2); Eosinophils Absolute Auto 0.3 K/mm3 (0-0.3); Eosinophils Percent Auto 1.6 % (0-4.4); Hematocrit 29.4 % (42.0-52.0); Hemoglobin 9.4 g/dL (14.0-18.0); Immature Granulocyte Absolute 0.16 K/mm3 (0.00-0.031); Immature Granulocyte Percent A 0.9 % (0-0.5); Lymphocytes Absolute Auto 1.31 K/mm3 (0.9-3.2); Lymphocytes Percent Auto 7.7 % (18.3-44.2); Mean Corpuscular Hemoglobin 29.8 pg (26-34); Mean Corpuscular Volume 93.3 fl (80-100); Mean Platelet Volume 8.7 fl (7.4-10.4); Monocytes Absolute Auto 1.3 K/mm3 (0.1-0.6); Monocytes Percent Auto 7.5 % (2.6-8.5); Neutrophils Absolute Auto 13.9 K/mm3 (1.3-6.7); Platelet Count Result 447 k/mm3 (150-375); Red Blood Count 3.15 M/mm3 (4.6-6.20); Red Cell Distribution Width 12.8 % (11.5-14.5)
[2024-12-06 07:28] LABS: Alanine Aminotransferase 33 U/L (6-50); Albumin Level 2.8 g/dL (3.5-5.1); Alkaline Phosphatase 124 U/L (38-126); Anion Gap 5 mmol/L (4-12); Aspartate Amino Transferase 18 U/L (17-59); Bilirubin,Total 0.4 mg/dL (0.2-1.3); Blood Urea Nitrogen 17 mg/dL (9-20); Carbon Dioxide 27 mmol/L (22-30); Chloride 102 mmol/L (98-107); Estimated CRCL calculation 73 ml/min; Estimated Glomerular Filt Rate > 60; Glucose 117 mg/dL (65-110); Magnesium 2.4 mg/dL (1.6-2.3); Sodium 134 mmol/L (137-145)
[2024-12-06] MEDS: DOCUSATE SODIUM 100 MG CAPSULE PO ×2 (08:31→19:40)
[2024-12-06] MEDS: LIDOCAINE 5% PATCH 1 PATCH TRANSDERM (08:31)
[2024-12-06] MEDS: SOD HYPOCHLORITE 1/4 STRENGTH 473 ML 1 APPLIC TOPICAL (08:31)
[2024-12-06] MEDS: DULoxetine HCL 30 MG CAPSULE.DR PO ×2 (08:31→19:40)
[2024-12-06] MEDS: FINASTERIDE 5 MG TABLET PO (08:31)
[2024-12-06] MEDS: BACLOFEN 10 MG TABLET PO ×2 (08:31→19:40)
[2024-12-06] MEDS: APIXABAN 5 MG TABLET PO ×2 (08:31→19:40)
[2024-12-06] MEDS: SACCHAROMYCES BOULARDII 250 MG CAPSULE PO (08:31)
[2024-12-06] MEDS: oxyCODONE HCL (*CRX) 5 MG TAB IR PO ×2 (08:34→17:46)
[2024-12-06] MEDS: CEFEPIME 2 GM/NS 50 ML 2 GM/50 ML BAG IVPB ×2 (09:00→19:36)
--- NOTE | 2024-12-06 10:00 | P.PNIM_ITS ---
Progress Note: A&P Assessment and Plan (1) Sacral decubitus ulcer: Qualifiers: Pressure injury stage: stage 4 Qualified Code(s): L89.154 - Pressure ulcer of sacral region, stage 4 Code(s): L89.159 - Pressure ulcer of sacral region, unspecified stage Status: Acute (2) Neurogenic bladder: Code(s): N31.9 - Neuromuscular dysfunction of bladder, unspecified Status: Acute (3) Paraplegia, incomplete: Code(s): G82.22 - Paraplegia, incomplete Status: Acute (4) Myelopathy: Code(s): G95.9 - Disease of spinal cord, unspecified Status: Acute (5) Weakness: Code(s): R53.1 - Weakness Status: Acute (6) Thrombocytosis: Code(s): D75.839 - Thrombocytosis, unspecified Status: Acute (7) Leukocytosis: Code(s): D72.829 - Elevated white blood cell count, unspecified Status: Acute (8) Chronic indwelling Zheng catheter: Code(s): Z97.8 - Presence of other specified devices Status: Acute (9) Constipation: Code(s): K59.00 - Constipation, unspecified Status: Acute Plan This is a 74-year-old male presented with sacral pain has been worsening with associated malodorous discharge. Infected Sacral decubitus ulcer Leukocytosis 16.4>17 CT abdomen pelvis showed sacral decubitus ulcer measuring 3.1 x5.1 x 20 cm. Multiple punctate foci of air identified within the soft tissue extending from the coccyx and extending caudally approximately 12 cm to the level of perineum. Wound care and general surgery consulted. Patient started on vancomycin cefepime and metronidazole. Blood cultures x2 were obtained. Status post spinal cord stimulator placement Paraplegia BPH UTI UC 11/06:History of Pseudomonas in urine Neurogenic bladder with indwelling Zheng catheter History of Bladder cancer status post excision of bladder tumor Chest x-ray with linear left basilar scarring otherwise clear lungs DVT Right lower extremity DVT following surgery in September on Eliquis CKD stage 3 Chronic anemia Thoracic myelopathy History of thoracic surgery for decompression many years ago with additional L4- L5 laminectomy and spinal cord stimulator placement November of 2023. He underwent further T3-5 laminoplasty for spinal cord compression at T4 level. Postoperatively patient continued to have right hip pain for which some MRI and myelogram had been planned this week per neurosurgery Dr. Robles. Family prefers to get this done as well will reach out to [place] for transfer DVT prophylaxis on Eliquis at home Code status full code Called [facility] and awaiting that call Back Subjective Date/time seen: 12/06/24 10:00 Interval history: Today the patient undergo sacral ulcer debridement .As per he is accepted at [facility]. Review of Systems Review of Systems: Back pain, sacral wound, generalized weakness All systems reviewed & are unremarkable except as noted in HPI and below Exam Narrative: GENERAL: Well-appearing, well-nourished, and in no acute distress. HEAD: Normocephalic, atraumatic. EYES: EOMI. ENT: Nares clear, no rhinorrhea or epistaxis. Mucous membranes moist. NECK: Supple. CHEST: Clear to auscultation. No respiratory distress. HEART: Regular rate and rhythm. No murmur heard. Normal peripheral pulses. ABDOMEN: Soft, nontender, nondistended, normal active bowel sounds. Zheng catheter in place draining clear yellow fluid EXTREMITIES: Normal range of motion. No edema.. SKIN: 2 cm x 1 cm stage IV sacral ulcer with biofilm at the base, tunneling beneath the skin to the left. Active malodorous drainage. Surrounding stage 1 and 2 ulcer with tenderness and blanching erythema NEURO: Alert and oriented x3. Chronic paraplegia Const: General: comfortable, no acute distress, well developed, alert, awake, ill appearing chronically and average body habitus Nutritional Appearance: average body habitus Orientation/consciousness: patient oriented x3 HENMT: Head: normal to inspection, normocephalic and atraumatic Ears: hearing grossly normal bilaterally Face/Nose/Sinus: normal facial exam Face and sinus: normal facial exam Eyes: General: appearance normal, both eyes and all related structures Pupils: Equal, round and reactive pupils present EOM: EOMs intact bilaterally Neck: Neck: full ROM, no lymphadenopathy and no JVD Thyroid: thyroid normal Lymphatic: no lymphadenopathy noted Resp: Effort & Inspection: normal respiratory effort and able to speak in complete sentences Auscultation: clear to auscultation bilaterally Cardio: Jugular venous distension: no JVD Rate: regular rate Rhythm: regular rhythm Heart sounds: S1 normal heart sound present and S2 normal heart sound present : General: Yes deferred Urinary Catheter: Urinary Catheter: patent and draining Skin: General skin exam: wounds noted (Sacral) Rashes: no rashes Wounds: no wounds and wounds noted (Sacral) Neuro: General: patient oriented x3 and CN's II-XI intact bilaterally Cranial nerves: Yes CN's II-XII intact bilaterally and Yes Equal, round and reactive pupils present Cognition (Neuro): normal cognition Speech: normal speech Gait exam (Neuro): Normal gait present and Other gait observations present (Paraplegic) Motor exam (neuro): 5/5 motor strength present throughout Extrem: General: normal to inspection, full ROM, no joint enlargement and no pedal edema Other: Unna boots on Objective Data Vital Signs Vital Signs: Vital Signs - 24 hr 12/05/24 14:00 12/05/24 20:00 12/05/24 20:42 Temperature 97.7 F 100.7 F H Pulse Rate 72 70 70 Respiratory Rate 14 16 16 Blood Pressure 134/65 133/65 Pulse Oximetry 99 99 99 Oxygen Delivery Room Air 12/06/24 06:00 Temperature 97.4 F L Pulse Rate 68 Respiratory Rate 12 Blood Pressure 125/54 L Pulse Oximetry 95 Oxygen Delivery Intake/Output Intake/Output: Intake & Output 12/03/24 12/04/24 12/05/24 12/06/24 23:59 23:59 23:59 23:59 Intake Total 400 1528 600 Output Total 1500 500 Balance 400 28 100 Meds/Results Medications: Active Medications Generic Name Dose Route Start Last Admin Trade Name Freq PRN Reason Stop Dose Admin Acetaminophen 650 mg 12/05/24 05:49 12/05/24 05:50 Acetaminophen 325 Mg Tablet BY MOUTH 650 mg Q6H PRN Administration Pain 1-3 Apixaban 5 mg 12/05/24 09:00 12/06/24 08:31 Apixaban 5 Mg Tablet PO 5 mg Q12HR FENG Administration Baclofen 10 mg 12/05/24 09:00 12/06/24 08:31 Baclofen 10 Mg Tablet PO 10 mg Q12HR FENG Administration Docusate Sodium 100 mg 12/05/24 09:00 12/06/24 08:31 Docusate Sodium 100 Mg Capsule PO 100 mg Q12HR FENG Administration Duloxetine HCl 30 mg 12/05/24 09:00 12/06/24 08:31 Duloxetine Hcl 30 Mg Capsule.Dr PO 30 mg Q12HR FENG Administration Finasteride 5 mg 12/05/24 09:00 12/06/24 08:31 Finasteride 5 Mg Tablet PO 5 mg DAILY FENG Administration Gabapentin 900 mg 12/05/24 22:00 12/06/24 04:46 Gabapentin 300 Mg Capsule PO 900 mg Q8HR FENG Administration Hydromorphone HCl 1 mg 12/04/24 22:56 12/06/24 03:00 Hydromorphone Hcl Inj (*Crx) 1 Mg/Ml Syr IV PUSH 1 mg Q3H PRN Administration Pain Rated 7-10 Cefepime HCl 2 gm in 50 mls @ 100 mls/hr 12/05/24 09:00 12/05/24 21:00 Maxipime 2 Gm/Ns 50 Ml IVPB Infused Q12H FENG Infusion Metronidazole 500 mg in 100 mls @ 100 mls/hr 12/05/24 06:00 12/06/24 04:45 Flagyl 500 Mg/Iso Soln 100 Ml IVPB 100 mls/hr Q8H FENG Administration Vancomycin HCl 1,500 mg in 500 mls @ 250 mls/hr 12/05/24 16:00 12/05/24 21:00 Vancomycin 1,500 Mg/Ns 500 Ml IVPB Infused Q18H FENG Infusion Lidocaine 1 patch 12/05/24 09:00 12/06/24 08:31 Lidocaine 5% Patch TRANSDERM 1 patch DAILY FENG Administration Oxycodone HCl 5 mg 12/05/24 01:10 12/06/24 08:34 Oxycodone Hcl (*Crx) 5 Mg Tab Ir PO 5 mg Q8H PRN Administration Pain 7-10 Polyethylene Glycol 17 gm 12/05/24 01:10 Polyethylene Glycol 3350 17 Gm Powd.Pack PO BID PRN Constipation (First line) Saccharomyces Boulardii 1 mg 12/05/24 09:00 12/06/24 08:31 Saccharomyces Boulardii 250 Mg Capsule PO 1 mg DAILY FENG Administration Sodium Hypochlorite 1 applic 12/05/24 09:00 12/06/24 08:31 Sod Hypochlorite 1/4 Strength 473 Ml TOPICAL 1 applic Q12HR FENG Administration Tamsulosin HCl 0.4 mg 12/05/24 21:00 12/05/24 20:28 Tamsulosin Hcl 0.4 Mg Capsule PO 0.4 mg HS FENG Administration Radiology Results: ITS Impressions Pelvis CT 12/04/24 19:32 IMPRESSION: Sacral decubitus ulcer, with measurements as detailed above. Chest X-Ray 12/05/24 06:25 Impression: Linear left basilar scarring, otherwise clear lungs. Labs Labs: Laboratory Results - last 24 hr 12/05/24 12/06/24 06:40 06:23 WBC 16.4 H 17.0 H RBC 3.27 L 3.15 L Hgb 9.9 L 9.4 L Hct 31.0 L 29.4 L MCV 94.8 93.3 MCH 30.3 29.8 MCHC 31.9 L 32.0 RDW 12.7 12.8 Plt Count 475 H 447 H MPV 9.0 8.7 Immature Gran % (Auto) 0.9 H 0.9 H Neut % (Auto) 81.8 H 82.0 H Lymph % (Auto) 8.7 L 7.7 L [place] % (Auto) 7.4 7.5 Eos % (Auto) 0.9 1.6 Baso % (Auto) 0.3 0.3 Lymph # (Auto) 1.42 1.31 [place] # (Auto) 1.2 H 1.3 H Eos # (Auto) 0.1 0.3 Baso # (Auto) 0.1 0.1 Abs Immat Gran (auto) 0.14 H 0.16 H Absolute Neuts (auto) 13.4 H 13.9 H Absolute Nucleated RBC 0.000 0.000 Nucleated RBC % 0.0 0.0 Sodium 134 L 134 L Potassium 4.5 4.0 Chloride 102 102 Carbon Dioxide 23 27 Anion Gap 9 5 BUN 20 17 Creatinine 0.86 0.82 Estim Creat Clear Calc 70 73 Estimated GFR > 60 > 60 Glucose 112 H 117 H Calcium 9.1 9.0 Magnesium 2.3 2.4 H Total Bilirubin 0.5 0.4 AST 26 18 ALT 46 33 Alkaline Phosphatase 145 H 124 Total Protein 6.0 L 6.0 L Albumin 2.9 L 2.8 L Hospitalist MIPS Advance Care Plan I have confirmed that the patient's Advanced Care Plan is present, code status is documented, or surrogate decision maker is listed in patient medical record.: Yes Medication Reconciliation I have utilized all available resources to obtain, update and review the patients current medications (includes all prescriptions, OTC, herbals, cannabis, and nutritional supplements).: Yes
[2024-12-06 11:03] LABS: Vancomycin Trough 16.4 ug/mL (10.0-20.0)
[2024-12-06] MEDS: LACTATED RINGERS 1,000 ML 30 ML IV CONT (12:00)
--- NOTE | 2024-12-06 12:43 | WPDHPUPDATE1 ---
History and Physical Update Update Date/Time: 12/06/24 12:43 History and Physical has been reviewed, including an updated exam of the patient. There are NO changes in the patient's condition. Risks, benefits, and alternatives have been discussed and questions answered. Patient agrees to proceed with procedure.
--- NOTE | 2024-12-06 12:46 | WPDANESEPPF ---
Anes - Initial Pre Proc Eval Procedure: Operation Date: 12/06/24 13:00 Proposed Procedures p Sacral Decubitus Ulcer Debridement - Corey Jones DO Date/Time: 12/06/24 12:46 Surgeon: Bradley Daniels MD Pre Op Diagnosis: Sacral ulcer Patient Data Age: 74 Gender: M Height: 1.83 m Weight: 92 kg Last Vital Signs Temp 36.3 C L 12/06/24 06:00 Pulse 68 12/06/24 06:00 Resp 12 12/06/24 06:00 BP 125/54 L 12/06/24 06:00 Pulse Ox 95 12/06/24 06:00 O2 Del Method Room Air 12/05/24 20:00 Allergies Allergy/AdvReac Type Severity Reaction Status Date / Time Sulfa (Sulfonamide Allergy Unknown Unknown Verified 10/14/24 15:51 Antibiotics) Home Medications ?Medication ?Instructions ?Recorded ?Confirmed ?Type Florastor 1 cap PO DAILY 10/14/24 12/04/24 History acetaminophen 2 tablet BYMOUTH Q6H PRN Pain 10/14/24 12/04/24 History docusate sodium 100 mg capsule 100 mg PO BID 10/14/24 12/04/24 History polyethylene glycol 3350 17 gram 17 g PO BID PRN Constipation 10/14/24 12/04/24 History oral powder packet (Miralax) (First line) sennosides 8.6 mg tablet (senna) 8.6 mg PO BID 10/14/24 12/04/24 History apixaban 5 mg tablet 5 mg PO BID #60 tabs 11/05/24 12/04/24 Rx baclofen 10 mg tablet 10 mg PO BID Spasms #30 tabs 11/05/24 12/04/24 Rx finasteride 5 mg tablet 5 mg PO DAILY #30 tabs 11/05/24 12/04/24 Rx lidocaine 4 % topical patch 1 patch transdermal DAILY #7 ea 11/05/24 12/04/24 Rx (Lidocaine Pain Relief) oxycodone 5 mg tablet 5 mg PO Q8H PRN Pain #21 tabs 11/05/24 12/04/24 Rx tamsulosin 0.4 mg capsule 0.4 mg PO HS #30 caps 11/05/24 12/04/24 Rx duloxetine 30 mg capsule,delayed 30 mg PO BID 12/04/24 12/04/24 History release gabapentin 300 mg capsule 900 mg PO TID 12/04/24 12/05/24 History Laboratory Tests 12/05/24 12/06/24 12/06/24 06:40 06:23 09:15 WBC 16.4 H K/mm3 17.0 H K/mm3 (4.5-10.0) (4.5-10.0) RBC 3.27 L M/mm3 3.15 L M/mm3 (4.6-6.20) (4.6-6.20) Hgb 9.9 L g/dL 9.4 L g/dL (14.0-18.0) (14.0-18.0) Hct 31.0 L % 29.4 L % (42.0-52.0) (42.0-52.0) MCV 94.8 fl 93.3 fl (80-100) (80-100) MCH 30.3 pg 29.8 pg (26-34) (26-34) MCHC 31.9 L g/dl 32.0 g/dl (32-36) (32-36) RDW 12.7 % 12.8 % (11.5-14.5) (11.5-14.5) Plt Count 475 H k/mm3 447 H k/mm3 (150-375) (150-375) MPV 9.0 fl 8.7 fl (7.4-10.4) (7.4-10.4) Immature Gran % (Auto) 0.9 H % 0.9 H % (0-0.5) (0-0.5) Neut % (Auto) 81.8 H % 82.0 H % (45.5-73.1) (45.5-73.1) Lymph % (Auto) 8.7 L % 7.7 L % (18.3-44.2) (18.3-44.2) [place] % (Auto) 7.4 % 7.5 % (2.6-8.5) (2.6-8.5) Eos % (Auto) 0.9 % 1.6 % (0-4.4) (0-4.4) Baso % (Auto) 0.3 % 0.3 % (0.2-1.2) (0.2-1.2) Lymph # (Auto) 1.42 K/mm3 1.31 K/mm3 (0.9-3.2) (0.9-3.2) [place] # (Auto) 1.2 H K/mm3 1.3 H K/mm3 (0.1-0.6) (0.1-0.6) Eos # (Auto) 0.1 K/mm3 0.3 K/mm3 (0-0.3) (0-0.3) Baso # (Auto) 0.1 K/mm3 0.1 K/mm3 (0.0-0.1) (0.0-0.1) Abs Immat Gran (auto) 0.14 H K/mm3 0.16 H K/mm3 (0.00-0.031) (0.00-0.031) Absolute Neuts (auto) 13.4 H K/mm3 13.9 H K/mm3 (1.3-6.7) (1.3-6.7) Absolute Nucleated RBC 0.000 K/mm3 0.000 K/mm3 (0.0-0.012) (0.0-0.012) Nucleated RBC % 0.0 % 0.0 % (0.0-0.2) (0.0-0.2) Sodium 134 L mmol/L 134 L mmol/L (137-145) (137-145) Potassium 4.5 mmol/L 4.0 mmol/L (3.4-5.0) (3.4-5.0) Chloride 102 mmol/L 102 mmol/L (98-107) (98-107) Carbon Dioxide 23 mmol/L 27 mmol/L (22-30) (22-30) Anion Gap 9 mmol/L 5 mmol/L (4-12) (4-12) BUN 20 mg/dL 17 mg/dL (9-20) (9-20) Creatinine 0.86 mg/dL 0.82 mg/dL (0.7-1.3) (0.7-1.3) Estim Creat Clear Calc 70 ml/min 73 ml/min Estimated GFR > 60 > 60 (59 - ) (59 - ) Glucose 112 H mg/dL 117 H mg/dL (65-110) (65-110) Calcium 9.1 mg/dL 9.0 mg/dL (8.4-10.2) (8.4-10.2) Magnesium 2.3 mg/dL 2.4 H mg/dL (1.6-2.3) (1.6-2.3) Total Bilirubin 0.5 mg/dL 0.4 mg/dL (0.2-1.3) (0.2-1.3) AST 26 U/L 18 U/L (17-59) (17-59) ALT 46 U/L 33 U/L (6-50) (6-50) Alkaline Phosphatase 145 H U/L 124 U/L (38-126) (38-126) Total Protein 6.0 L g/dL 6.0 L g/dL (6.3-8.2) (6.3-8.2) Albumin 2.9 L g/dL 2.8 L g/dL (3.5-5.1) (3.5-5.1) Vancomycin Trough 16.4 ug/mL (10.0-20.0) Patient hx anesthesia problems: none Family hx anesthesia problems: none Results Review: All pre-operative results and documents have been reviewed as part of the pre-operative evaluation. [facility] Past Medical History Medical History Leukocytosis Chronic anemia Deep venous thrombosis Tethered spinal cord Benign prostatic hyperplasia Chronic kidney disease Neurogenic bladder Neurogenic bowel, not elsewhere classified Paraplegia, incomplete Thoracic myelopathy Bladder stones Bladder cancer Requiring excision of tumor Surgical History Surgical History Spinal cord stimulator status History of bladder surgery excision of bladder tumor History of back surgery (10/02/24) posterior lumbar thoracic spinal fusion with instrumentation, 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 given compression of thoracic myelopathy at [place] Family History Family History Father Acute myocardial infarction, Onset Age: 57 Patient's father is Mother Patient's mother is Unknown Family history not known due to adoption Other Unknown family medical history Social History Social History Social History: Surrogate medical decision maker: Gricelda Delgado, spouse. Code status: Full code. Smoking status: Never smoker Second hand tobacco smoke exposure: No Alcohol intake: never Substance use: never Substance use type: does not use Do You Feel Safe in your Home?: Yes Lack of Transportation: No Lack of Food: Never True Current Housing: I Have Housing Concerned About Future Housing: No Difficulty Paying Gas/Electric Bills: No Difficulty Paying for Meds: No Currently Unemployed: No Education: High School Diploma/GED Difficulty w/ Childcare or Family Care: No Living arrangements: with family Additional living arrangements comments: Lives with spouse in [place]. They have 3 children. Occupation/Education: retired Additional occupation/education comments: [employer] care concerns: No Anes - Eval Final PreProcedure Day of Procedure 12/06/24 12:46 Patient weight: overweight Heart: regular rate and rhythm Lungs: clear to auscultation Airway: Mallampati scale class II Neurological: alert and oriented Last oral intake: >/= 8 hours ASA classification: III Emergent: no Anesthetic plan: proceed Anesthesia type and monitoring: general LMA and standard monitoring Results Review: All pre-operative results and documents have been reviewed as part of the pre-operative evaluation. Informed Consent: The patient's anesthetic plan and its attendant risks and benefits were discussed with the patient/family/POA. Questions were solicited and answers provided to the satisfaction of the patient/family/POA.
[2024-12-06] MEDS: BUPIVACAINE/EPINEPHRINE 0.5% 50 ML VIAL 20 ML INFILTRATE (13:28)
[2024-12-06] MEDS: VANCOMYCIN 1,500 MG/NS 500 ML 1,500 MG/500 ML BAG 250 MG IVPB (14:40)
--- NOTE | 2024-12-06 14:46 | W.PM.PROC2 ---
Procedure Note - Detailed Date of Procedure 12/06/24 Pre-op Diagnosis Sacral ulcer Post-op Diagnosis Other (Stage IV sacral decubitus ulcer, sacral osteomyelitis) Procedure Performed Sharp excisional debridement of 11 cm x 10 cm sacral decubitus ulcer including skin, subcutaneous fat, muscle, fascia, and bone Surgeon Corey Jones, DO Anesthesia General and Local (0.5% bupivacaine) Indications This is a 74-year-old man who presented with a sacral wound. He has a history of spinal cord injury which rendered him bed ridden. He began developing a wound on his sacral region that has now progressed to an infected wound with necrotic tissue and drainage within the wound bed. There was a small wound opening with significant tunneling to the left lateral region and left caudal region. Discussions were made with the patient about treatment options and decision was made to proceed with debridement of the sacral ulcer. Findings Sharp excisional debridement was performed using Diez scissors. An incision was carried down along the overlying skin in the left caudal region where the wound was tunneling as well as in the left lateral region. The necrotic tissue was excised which included skin, subcutaneous fat, muscle, tendon, and bone. The wound went all the way down to the sacrum and some of the overlying periosteum appeared soft and infected. The wound was debrided down to healthy bleeding tissue. The wound was then packed with a Betadine-soaked 4 in Kerlix roll. Description of Procedure Procedure as well as risks, benefits, and alternatives were discussed with the patient. Written consent was obtained and placed in chart prior to procedure. Patient was brought back to surgical suite. He was placed supine on operating table. Time-out was done to confirm patient and procedure. He was then intubated by the anesthesia department. He was then repositioned to right lateral decubitus position. His sacral area was prepped and draped in sterile fashion using Betadine prep. 0.5% bupivacaine was infiltrated locally in the areas where the skin needed to be opened. There were 2 areas where the wound was tunneling that needed to be opened further. The left caudal region was extended about 5 cm inferior to the wound opening and the left lateral region was extended about 6 cm laterally using a 10 blade scalpel. Electrocautery was then used for hemostasis. The necrotic tissue was then excised using curved Diez scissors. There was a fairly large amount of necrotic tissue with purulence drainage within the wound bed. This extended all the way down to the fascia overlying the sacrum. This fascia also appeared necrotic and some purulence fluid could be expressed when pressing on this area. I then excised the fascia further using the curved Diez scissors and this extended all the way down to the surface of the sacrum. Some of the sacral periosteum was excised and the bone appeared to be bleeding just deep to this. Once the total area was adequately debrided back to healthy appearing tissue, the wound dimensions measured about 11 cm vertically by 10 cm wide. The wound was then irrigated with sterile saline. The wound was then packed with Betadine-soaked 4 in Kerlix wrap. Fluffed gauze, ABD pads, and Medipore tape were then applied. The patient was then awakened from anesthesia, extubated, and transferred to recovery. Estimated Blood Loss 100 Complications No immediate complications Condition Stable Disposition [facility] [place] Surgery - Charge Forward: Surgery Billing
[2024-12-06] MEDS: ACETAMINOPHEN 325 MG TABLET 650 MG BY MOUTH (17:46)
[2024-12-06] MEDS: TAMSULOSIN HCL 0.4 MG CAPSULE PO (19:40)
--- NOTE | 2024-12-07 14:28 | WPDANESPN ---
Anes - Prog Note Post-Op Date/Time: 12/07/24 14:28 Vital Signs: Last Vital Signs Temp 36.2 C L 12/06/24 17:24 Pulse 70 12/06/24 20:00 Resp 16 12/06/24 20:00 BP 106/59 L 12/06/24 17:24 Pulse Ox 96 12/06/24 20:00 O2 Del Method Room Air 12/06/24 20:00 O2 Flow Rate 8 12/06/24 14:35 Pain Score (VAS): 0 I/O: Intake & Output 12/06/24 12/07/24 12/07/24 23:59 07:59 15:59 Intake Total 270 Output Total 600 Balance -330 Laboratory Tests 12/06/24 06:23 12/06/24 06:23 Microbiology 12/04/24 20:17 Sacral Anaerobic Culture - Preliminary Bacteroides fragilis Peptostreptococcus species 12/04/24 20:17 Sacral Aerobic Culture - Final Enterococcus species Patient Feedback: Patient satisfied with anesthetic care.
--- NOTE | 2024-12-08 15:00 | P.TS_ITS ---
Transfer Discharge Sum: Prov Provider Date of admission: 12/05/24 09:33 Primary care physician: Sj Benson, Admitting clinician: Bradley Daniels MD Consults: 12/04/24 Wound/ET Consult Routine Reason for Consult:: sacral wound 12/04/24 20:30 Consult to Physician Routine Comment: spoke to office @[phone] (,) Consulting Provider: Corey Jones call center consultant/MD group to consult: Dr. Ireland Reason for consultation: Sacral ulcer, may need debridement Has provider been notified: Yes DS: Admitting Diagnosis Discharge Date 12/06/24 Admitting Diagnosis Back pain DS: Discharge Diagnosis Discharge Diagnosis (1) Sacral decubitus ulcer: Qualifiers: Pressure injury stage: stage 4 Qualified Code(s): L89.154 - Pressure ulcer of sacral region, stage 4 Code(s): L89.159 - Pressure ulcer of sacral region, unspecified stage Status: Acute (2) Neurogenic bladder: Code(s): N31.9 - Neuromuscular dysfunction of bladder, unspecified Status: Acute (3) Paraplegia, incomplete: Code(s): G82.22 - Paraplegia, incomplete Status: Acute (4) Myelopathy: Code(s): G95.9 - Disease of spinal cord, unspecified Status: Acute (5) Weakness: Code(s): R53.1 - Weakness Status: Acute (6) Thrombocytosis: Code(s): D75.839 - Thrombocytosis, unspecified Status: Acute (7) Leukocytosis: Code(s): D72.829 - Elevated white blood cell count, unspecified Status: Acute (8) Chronic indwelling Zheng catheter: Code(s): Z97.8 - Presence of other specified devices Status: Acute (9) Constipation: Code(s): K59.00 - Constipation, unspecified Status: Acute Plan This is a 74-year-old male presented with sacral pain has been worsening with associated malodorous discharge. Infected Sacral decubitus ulcer On 12/06/2024 : Patient underwent Sharp excisional debridement of 11 cm x 10 cm sacral decubitus ulcer including skin, subcutaneous fat, muscle, fascia, and bone Leukocytosis 16.4>17 CT abdomen pelvis showed sacral decubitus ulcer measuring 3.1 x5.1 x 20 cm. Multiple punctate foci of air identified within the soft tissue extending from the coccyx and extending caudally approximately 12 cm to the level of perineum. Wound care and general surgery consulted. Patient started on vancomycin cefepime and metronidazole. Blood cultures x2 were obtained. Status post spinal cord stimulator placement Paraplegia BPH UTI UC 11/06:History of Pseudomonas in urine Neurogenic bladder with indwelling Zheng catheter History of Bladder cancer status post excision of bladder tumor Chest x-ray with linear left basilar scarring otherwise clear lungs DVT Right lower extremity DVT following surgery in September on Eliquis CKD stage 3 Chronic anemia Thoracic myelopathy History of thoracic surgery for decompression many years ago with additional L4- L5 laminectomy and spinal cord stimulator placement November of 2023. He underwent further T3-5 laminoplasty for spinal cord compression at T4 level. Postoperatively patient continued to have right hip pain for which some MRI and myelogram had been planned this week per neurosurgery Dr. Robles. Family prefers to get this done as well will reach out to [facility] for transfer DVT prophylaxis on Eliquis at home Code status full code Transfer to [facility] Transfer Discharge Sum: Med Medications Active and Home Medications: Home Medications Florastor 1 cap PO DAILY 10/14/24 [History Confirmed 12/04/24] acetaminophen 2 tablet BYMOUTH Q6H PRN Pain 10/14/24 [History Confirmed 12/04/24] docusate sodium 100 mg capsule 100 mg PO BID 10/14/24 [History Confirmed 12/04/24] polyethylene glycol 3350 17 gram oral powder packet (Miralax) 17 g PO BID PRN Constipation (First line) 10/14/24 [History Confirmed 12/04/24] sennosides 8.6 mg tablet (senna) 8.6 mg PO BID 10/14/24 [History Confirmed 12/04/24] apixaban 5 mg tablet 5 mg PO BID #60 tabs 11/05/24 [Rx Confirmed 12/04/24] baclofen 10 mg tablet 10 mg PO BID Spasms #30 tabs 11/05/24 [Rx Confirmed 12/04/24] finasteride 5 mg tablet 5 mg PO DAILY #30 tabs 11/05/24 [Rx Confirmed 12/04/24] lidocaine 4 % topical patch (Lidocaine Pain Relief) 1 patch transdermal DAILY #7 ea 11/05/24 [Rx Confirmed 12/04/24] oxycodone 5 mg tablet 5 mg PO Q8H PRN Pain #21 tabs 11/05/24 [Rx Confirmed 12/04/24] tamsulosin 0.4 mg capsule 0.4 mg PO HS #30 caps 11/05/24 [Rx Confirmed 12/04/24] duloxetine 30 mg capsule,delayed release 30 mg PO BID 12/04/24 [History Confirmed 12/04/24] gabapentin 300 mg capsule 900 mg PO TID 12/04/24 [History Confirmed 12/05/24] Transfer Discharge Sum: Hosp Hospital Course Hospital course: Ryan Delgado is a 74 year old male with past medical history significant for detected cord syndrome, paraplegia, chronic decubitus in the sacral area, chronic indwelling Zheng catheter, neurogenic bladder, chronic pain, chronic constipation. Patient presents to the emergency room with pain localized to the sacral area, worsening, he was found to have malodorous discharge from ulcer. Preliminary workup was significant for leukocytosis with CBC white blood cell count 53703, platelet count in the 534,000. Patient has been admitted for further evaluation management and treatment. On 12/06/2024 patient underwent Sharp excisional debridement of 11 cm x 10 cm sacral decubitus ulcer including skin, subcutaneous fat, muscle, fascia, and bone History of thoracic surgery for decompression many years ago with additional L4- L5 laminectomy and spinal cord stimulator placement November of 2023. He underwent further T3-5 laminoplasty for spinal cord compression at T4 level. Postoperatively patient continued to have right hip pain for which some MRI and myelogram had been planned this week per neurosurgery Dr. Robles. Family prefers to get this done as well will reach out to [facility] for transfer. Time Spent with Patient Time attestation: Total time spent providing and/or coordinating transfer services: Exam Narrative: GENERAL: Well-appearing, well-nourished, and in no acute distress. HEAD: Normocephalic, atraumatic. EYES: EOMI. ENT: Nares clear, no rhinorrhea or epistaxis. Mucous membranes moist. NECK: Supple. CHEST: Clear to auscultation. No respiratory distress. HEART: Regular rate and rhythm. No murmur heard. Normal peripheral pulses. ABDOMEN: Soft, nontender, nondistended, normal active bowel sounds. Zheng catheter in place draining clear yellow fluid EXTREMITIES: Normal range of motion. No edema.. SKIN: 2 cm x 1 cm stage IV sacral ulcer with biofilm at the base, tunneling beneath the skin to the left. Active malodorous drainage. Surrounding stage 1 and 2 ulcer with tenderness and blanching erythema NEURO: Alert and oriented x3. Chronic paraplegia Const: General: comfortable, no acute distress, well developed, alert, awake, ill appearing chronically and average body habitus Nutritional Appearance: average body habitus Orientation/consciousness: patient oriented x3 HENMT: Head: normal to inspection, normocephalic and atraumatic Ears: hearing grossly normal bilaterally Face/Nose/Sinus: normal facial exam Face and sinus: normal facial exam Eyes: General: appearance normal, both eyes and all related structures Pupils: Equal, round and reactive pupils present EOM: EOMs intact bilaterally Neck: Neck: full ROM, no lymphadenopathy and no JVD Thyroid: thyroid normal Lymphatic: no lymphadenopathy noted Resp: Effort & Inspection: normal respiratory effort and able to speak in complete sentences Auscultation: clear to auscultation bilaterally Cardio: Jugular venous distension: no JVD Rate: regular rate Rhythm: regular rhythm Heart sounds: S1 normal heart sound present and S2 normal heart sound present : General: Yes deferred Urinary Catheter: Urinary Catheter: patent and draining Skin: General skin exam: wounds noted (Sacral) Rashes: no rashes Wounds: no wounds and wounds noted (Sacral) Neuro: General: patient oriented x3 and CN's II-XI intact bilaterally Cranial nerves: Yes CN's II-XII intact bilaterally and Yes Equal, round and reactive pupils present Cognition (Neuro): normal cognition Speech: normal speech Gait exam (Neuro): Normal gait present and Other gait observations present (Paraplegic) Motor exam (neuro): 5/5 motor strength present throughout Extrem: General: normal to inspection, full ROM, no joint enlargement and no pedal edema Other: Unna boots on DS: Data Data Completed and Pending Labs on day of discharge: Preliminary micro results at discharge 12/04/24 20:17 Anaerobic Culture - Preliminary Sacral Bacteroides fragilis Peptostreptococcus species 12/04/24 16:39 Blood Culture - Preliminary Blood 12/04/24 16:42 Blood Culture - Preliminary Blood Imaging Radiologist's impression: ITS Impressions Pelvis CT 12/04/24 19:32 IMPRESSION: Sacral decubitus ulcer, with measurements as detailed above. Chest X-Ray 12/05/24 06:25 Impression: Linear left basilar scarring, otherwise clear lungs.
== END 2024-12-06 20:34 | disposition short-term general hospital (02) | DRG 988 ==
LOC: ANHED 20:29 → ANH3MEDSUR 21:15
PROVIDERS: Emergency Medicine; Internal Medicine; Surgery; Admitting Provider Internal Medicine; Emergency Provider Physician Assistant; PCP Family Medicine; Visit Provider General Practice
PROC: 0QB10ZX Excision of Sacrum, Open Approach, Diagnostic (ICD-10-PCS; principal; 2024-12-06 13:00)
DX: L89.154 Pressure ulcer of sacral region, stage 4 (principal); G82.22 Paraplegia, incomplete; G99.2 Myelopathy in diseases classified elsewhere; Q06.8 Other specified congenital malformations of spinal cord; D72.829 Elevated white blood cell count, unspecified; D75.839 Thrombocytosis, unspecified; D63.1 Anemia in chronic kidney disease; E78.5 Hyperlipidemia, unspecified; G89.29 Other chronic pain; K59.00 Constipation, unspecified; N31.9 Neuromuscular dysfunction of bladder, unspecified; N40.0 Benign prostatic hyperplasia without lower urinary tract symptoms; N18.30 Chronic kidney disease, stage 3 unspecified; Z74.01 Bed confinement status; Z97.8 Presence of other specified devices; Z85.51 Personal history of malignant neoplasm of bladder; Z86.718 Personal history of other venous thrombosis and embolism; Z96.82 Presence of neurostimulator; Z79.01 Long term (current) use of anticoagulants; Z28.21 Immunization not carried out because of patient refusal
CPT/HCPCS: 36415; 71045; 72193; 80053; 80202; 81001; 82565; 83605; 83735; 85025; 85652; 86140; 87040; 87070; 87075; 87181; 87205; 96365; 96366; 96367; 99213; 99285; A9270; G0378; G0463; J0692; J1100; J1171; J1836; J2405; J2704; J3010; J3370; J7120; Q9967

== ENCOUNTER 2025-05-15 13:37 | Emergency (ER) | payer MEDICARE, BC, SELFPAY ==
[2025-05-15 13:37] VITALS: BP 133/79; PULSE 76; RESP 16; TEMP 36.4; O2SAT 100
--- NOTE | 2025-05-15 14:16 | ED.MALEGU ---
HPI - Male Genitourinary General Chief complaint: Urogenital-Male Stated complaint: needs a new catheter Time Seen by Provider: 05/15/25 14:11 History of Present Illness HPI Narrative: Pt is paraplegic and has indwelling fonseca. Staff uable to reinsert fonseca at [facility] after 4-5 attempts. Pt has no complaints. Related Data Home Medications ?Medication ?Instructions ?Recorded ?Confirmed ?Last Taken ?Type Florastor 1 cap PO DAILY 10/14/24 12/04/24 Unknown History acetaminophen 2 tablet BYMOUTH Q6H PRN Pain 10/14/24 12/04/24 10/14/24 09:52 History 1000 mg docusate sodium 100 mg capsule 100 mg PO BID 10/14/24 12/04/24 10/13/24 21:02 History 100 mg polyethylene glycol 3350 17 gram 17 g PO BID PRN Constipation 10/14/24 12/04/24 10/12/24 08:58 History oral powder packet (Miralax) (First line) sennosides 8.6 mg tablet (senna) 8.6 mg PO BID 10/14/24 12/04/24 10/13/24 21:02 History duloxetine 30 mg capsule,delayed 30 mg PO BID 12/04/24 12/04/24 Unknown History release gabapentin 300 mg capsule 900 mg PO TID 12/04/24 12/05/24 Unknown History Allergies Allergy/AdvReac Type Severity Reaction Status Date / Time Sulfa (Sulfonamide Allergy Unknown Unknown Verified 10/14/24 15:51 Antibiotics) Review of Systems Review of Systems: All systems reviewed & are unremarkable except as noted in HPI and below PMFSH Past Medical History Medical History Leukocytosis Chronic anemia Deep venous thrombosis Tethered spinal cord Benign prostatic hyperplasia Chronic kidney disease Neurogenic bladder Neurogenic bowel, not elsewhere classified Paraplegia, incomplete Thoracic myelopathy Bladder stones Bladder cancer Requiring excision of tumor Surgical History Surgical History Spinal cord stimulator status History of bladder surgery excision of bladder tumor History of back surgery (10/02/24) posterior lumbar thoracic spinal fusion with instrumentation, 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 given compression of thoracic myelopathy at [place] Family History Family History Father Acute myocardial infarction, Onset Age: 57 Patient's father is Mother Patient's mother is Unknown Family history not known due to adoption Other Unknown family medical history Social History Social History Social History: Surrogate medical decision maker: Gricelda Delgado, spouse. Code status: Full code. Smoking status: Never smoker Second hand tobacco smoke exposure: No Alcohol intake: never Substance use: never Substance use type: does not use Do You Feel Safe in your Home?: Yes Lack of Transportation: No Lack of Food: Never True Current Housing: I Have Housing Concerned About Future Housing: No Difficulty Paying Gas/Electric Bills: No Difficulty Paying for Meds: No Currently Unemployed: No Education: High School Diploma/GED Difficulty w/ Childcare or Family Care: No Living arrangements: with family Additional living arrangements comments: Lives with spouse in [place]. They have 3 children. Occupation/Education: retired Additional occupation/education comments: [employer] Spiritual care concerns: No Exam Const: General: healthy appearing and no acute distress Nutritional Appearance: well nourished Limitations: no limitations Resp: Effort & Inspection: normal respiratory effort Auscultation: clear to auscultation bilaterally Cardio: Rate: regular rate Rhythm: regular rhythm GI: GI Palp: Yes Soft to palpation and No Tenderness to palpation present (GI) Auscultation: normal bowel sounds : General: Yes bladder normal to palpation Other: fonseca inserted here with clear urine output Urinary Catheter: Urinary Catheter: patent and draining and urine clear Back/Spine/Pelvis: Back: no CVA tenderness Skin: General skin exam: normal color Neuro: General: patient oriented x3 Speech: normal speech Extrem: General: no pedal edema Psych: Mental Status: mental status grossly normal Affect: normal affect Attitude: cooperative Course Vital Signs Vital signs: Vital Signs Temperature 97.6 F 05/15/25 13:37 Pulse Rate 76 05/15/25 13:37 Respiratory Rate 16 05/15/25 13:37 Blood Pressure 133/79 05/15/25 13:37 Pulse Oximetry 100 05/15/25 13:37 Temperature 97.6 F 05/15/25 13:37 Pulse Rate 68 05/15/25 14:22 Respiratory Rate 13 05/15/25 14:22 Blood Pressure 102/64 05/15/25 14:22 Pulse Oximetry 96 05/15/25 14:22 MDM - Male Genitourinary MDM Narrative Medical decision making narrative: staff at [facility] unable to insert fonseca. inserted here easily with clear urine flow. asks for UA to rule out infection. UA ordered. UA positive, could be contaminant but enough to treat. Lab Data Labs: Lab Results 05/15/25 Range/Units 14:24 Urine Color Yellow (Yellow) Urine Appearance Cloudy H (Clear) Urine pH 5.5 (5.0-9.0) Ur Specific [place] 1.022 (1.001-1.035) Urine Protein 1+ H (Negative) mg/dL Urine Glucose (UA) Negative (Negative) mg/dL Urine Ketones Negative (Negative) mg/dL Ur Blood (Man) 3+ H (Negative) Urine Nitrate Positive H (Negative) Urine Bilirubin Negative (Negative) Urine Urobilinogen 0.2 (<2.0) mg/dL Leukocyte Esterase Rfl 3+ H (Negative) TIFFANY/UL Urine RBC >100 H (0-2) /hpf Urine WBC >100 H (0-3) /hpf Ur Squamous Epith Cells None seen (Few) /hpf Urine Bacteria 4+ H /hpf Urine Casts 0-2 Discharge Plan Discharge Clinical Impression: Acute UTI Patient Disposition: Home Condition: Stable Instructions: Antibiotic Form, Urinary Tract Infection in Men (DC) Patient Language: Monegasque Prescriptions: New cefdinir 300 mg capsule 300 mg PO Q12H Qty: 10 0RF No Action duloxetine 30 mg capsule,delayed release(DR/EC) 30 mg PO BID gabapentin 300 mg capsule 900 mg PO TID acetaminophen 500 mg 2 tablet BYMOUTH Q6H PRN (Reason: Pain) Rx Instructions: Take 2 capsules (1000 mg total) by mouth every 6 hours as needed for pain. docusate sodium 100 mg Capsule 100 mg PO BID Florastor 250 mg capsule 1 cap PO DAILY sennosides [senna] 8.6 mg Tablet 8.6 mg PO BID polyethylene glycol 3350 [Miralax] 17 gram Powder In Packet 17 g PO BID PRN (Reason: Constipation (First line)) lidocaine [Lidocaine Pain Relief] 4 % Adhesive Patch,Medicated 1 patch transdermal DAILY Qty: 7 0RF tamsulosin 0.4 mg capsule 0.4 mg PO HS Qty: 30 0RF baclofen 10 mg tablet 10 mg PO BID Qty: 30 0RF Patient Comments: numbness tingling lt leg prn finasteride 5 mg tablet 5 mg PO DAILY Qty: 30 0RF oxycodone 5 mg Tablet 5 mg PO Q8H PRN (Reason: Pain) Qty: 21 0RF apixaban 5 mg Tablet 5 mg PO BID Qty: 60 0RF Follow-up/Referrals: Marcelino,MD Sj [Primary Care Provider] -
[2025-05-15 14:22] VITALS: BP 102/64; PULSE 68; RESP 13; O2SAT 96
[2025-05-15 14:32] LABS: Add Urine Microscopic? YES; Appearance Urine Cloudy (Clear); Bacteria Urine 4+ /hpf; Bilirubin Urine Negative (Negative); Blood Urine 3+ (Negative); Color Urine Yellow (Yellow); Glucose Urine UA Negative (Negative); Ketones Urine Negative (Negative); Leukocyte Esterase Ur 3+ LEU/UL (Negative); Nitrate Urine Positive (Negative); Non Pathogenic Casts 0-2; Protein Urine 1+ mg/dL (Negative); RBC Urine >100 /hpf (0-2); Specific Grav Ur 1.022 (1.001-1.035); Squamous Epithelial Cell Urine None Seen /hpf (Few); Urobilinogen Urine 0.2 mg/dL (<2.0); WBC Urine >100 /hpf (0-3); pH Urine 5.5 (5.0-9.0)
--- NOTE | 2025-05-15 14:52 | PC.NURSE ---
patient report and update called to Reji King at this time, spoke to Roselia FLORES for report, answered questions that she had.
== END 2025-05-15 18:35 ==
PROVIDERS: Emergency Provider Emergency Medicine; PCP Family Medicine
DX: N39.0 Urinary tract infection, site not specified (principal); G82.22 Paraplegia, incomplete; G95.9 Disease of spinal cord, unspecified; D64.9 Anemia, unspecified; N40.0 Benign prostatic hyperplasia without lower urinary tract symptoms; N18.9 Chronic kidney disease, unspecified; N31.9 Neuromuscular dysfunction of bladder, unspecified; K59.2 Neurogenic bowel, not elsewhere classified; Z87.442 Personal history of urinary calculi; Z96.82 Presence of neurostimulator; Z98.1 Arthrodesis status; Z85.51 Personal history of malignant neoplasm of bladder; Z86.718 Personal history of other venous thrombosis and embolism; Z79.899 Other long term (current) drug therapy; Z79.01 Long term (current) use of anticoagulants
CPT/HCPCS: 51702; 81001; 87077; 87086; 87147; 87186; 99283

== ENCOUNTER 2025-06-26 17:05 | Inpatient (IN) | payer MEDICARE, BC, SELFPAY ==
[2025-06-26] VITALS (38 sets, daily range): BP systolic 110–161; BP diastolic 55–122; PULSE 71–94; RESP 15–30; TEMP 37–40.1; O2SAT 71–100; BMI 28.2
--- NOTE | ~2025-06-26 | XR_ITS ---
XR shoulder LT min 2V 06/29/2025 09:04 Indication: Left shoulder pain Procedure: 4 views left shoulder Comparison: No prior studies for comparison. Findings: Mild left glenohumeral joint osteoarthritis. Acromioclavicular joint and anatomic alignment . No acute fracture or traumatic malalignment. No soft tissue abnormalities. Impression: 1: Mild left glenohumeral joint osteoarthritis. Reviewed, dictated and finalized at location A. Impression: 1: Mild left glenohumeral joint osteoarthritis.
--- NOTE | ~2025-06-26 | CT_ITS ---
History: Altered mental status PROCEDURE: CT head without contrast. COMPARISON: None TECHNIQUE: Axial imaging of the head performed from the skull base to the vertex without IV contrast. Sagittal a nd coronal reformations obtained. DLP: 681 mGy-cm FINDINGS: The ventricles are enlarged. The dilatation of the ventricles is proportional to the degree of sulcal prominence, not uncommon in the senescent brain. Decreased attenuation is identified within the periventricular white matter, likely secondary to micr ovascular ischemic disease, in a patient of this age. There is no mass, mass effect or midline shift. There is no abnormal extra-axial fluid collection or intracranial hemorrhage. Visualized paranasal sinuses are clear. The mastoid air cells are well aerated. No acute displaced fractures within the overlying cranium. Impression: No acute intracranial hemorrhage or suspicious mass effect. Reviewed, dictated and finalized at location A. Impression: No acute intracranial hemorrhage or suspicious mass effect.
--- NOTE | ~2025-06-26 | CT_ITS ---
CLINICAL INDICATION: Right upper quadrant pain COMPARISON: 11/06/2024. TECHNIQUE: Multiple contiguous axial images of the abdomen and pelvis were performed following the ad ministration of with 100 mL Omnipaque-350 intravenous contrast The dose-length product (DLP) was 1262.63 mGy-cm. Automated exposure control and iterative reconstruction technique were employed. FINDINGS/OBSERVATIONS: Visualized lower thorax: Trace left basilar atelectasis. The remainder of the bilateral lung bases are clear. The heart is of normal size, without pericardial effusion. Small hiatal hernia is present. Liver: The liver demonstrates homogeneous enhancement and is enlarged measuring 20 cm in longitudinal dimens ion. Gallbladder and biliary system: The gallbladder is only minimally distended, and otherwise unremarkable. Pancreas: The pancreas enhances homogeneously without ductal dilatation. Spleen: The spleen enhances homogeneously and is not enlarged measuring 8 cm in longitudinal dimension. Kidneys: Redemonstration of a large left renal cyst measuring 7.7 x 7.5 x 7.3 cm (anterior to posterior x medi al to lateral x cranial to caudal dimension). This cyst is causing mass effect on the left renal pelv is. Redemonstration of enhancing urothelial thickening along the bilateral ureters and collecting systems the bilateral kidneys, consistent with an ascending urinary tract infection, left greater than right . Adrenal glands: Unremarkable. Gastrointestinal tract: Colonic diverticulosis without surrounding inflammatory change. Appendix: The air-filled appendix is of normal caliber (axial series, images 128 through 141). Vasculature: Unremarkable. Lymph nodes: No pathologically enlarged or morphologically suspicious lymph nodes within the retroperitoneum or at the root of the mesentery. Pelvic structures: The bladder is mostly decompressed with a Zheng catheter with significant surrounding inflammatory ch hunter, similar in appearance to previous examination dated 11/06/2024.. The prostate gland is not enlarged. Body wall and musculoskeletal: Small fat-containing right inguinal hernia. Age-appropriate degenerative disease within the lower thoracic and lumbosacral spines. IMPRESSION: Findings consistent with ascending urinary tract infection, as detailed above. Reviewed, dictated and finalized at location A.
--- NOTE | ~2025-06-26 | XR_ITS ---
CHEST RADIOGRAPH CLINICAL HISTORY: AMS . COMPARISON: 12/05/2024 TECHNIQUE: Single portable view of the chest. FINDINGS The cardiomediastinal silhouette is unremarkable. The lungs are clear. IMPRESSION: No focal infiltrate or effusion. Reviewed, dictated and finalized at location A.
--- NOTE | 2025-06-26 17:27 | ECG_ITS ---
Test Date: 2025-06-26 17:52:11 Measurements Intervals [place] Rate: 67 P: -62 RI: 189 QRS: 89 QRSD: 104 T: 76 QT: 375 QTc: 397 Interpretive Statements SINUS RHYTHM DELAYED PRECORDIAL R/S TRANSITION BASELINE ARTIFACT- I, II, III, AVR, AVL, AVF, V1-V6 BORDERLINE ECG Compared to ECG 05/16/2024 17:18:38 HEART RATE HAS INCREASED Electronically Signed On 06-26-2025 19:38:19 CDT by David Murrell D.O.
--- NOTE | 2025-06-26 17:29 | ED.RECABL ---
HPI - Recheck/Abnormal Lab/Rx General Chief Complaint: Recheck/Abnormal Lab/Rx <Alka German PA-C - Last Filed: 06/27/25 04:15> Stated Complaint: increased WBC, lethargy <Alka German PA-C - Last Filed: 06/27/25 04:15> History of Present Illness HPI narrative: 74-year-old male with history of CKD, neurogenic bladder with chronic indwelling Zheng catheter, hyperlipidemia, paraplegia since 2023 after a spinal surgery, history of tethered spinal cord, postoperative DVT on Eliquis presents to the ED via EMS from [place] with at bedside for altered mental status and leukocytosis. Patient's is at bedside to assist with history. States she was talking to the patient today and he seemed more confused than normal. The [facility] staff agreed and obtained lab work which showed an elevated white blood cell count and advised that the patient come to the ED for further evaluation. They report the patient had a fever of 100? at [place] earlier today. The patient is reporting generalized malaise. He notes he has a chronic sacral decubitus ulcer for which he sees Wound Care. He believes that the wound is getting better but he does note some pain in this region that is chronic. He is also reporting intermittent right upper quadrant abdominal pain that is been present for several months and radiates to his back. He cannot identify any aggravating or alleviating factors including eating and drinking. Patient's at bedside also notes that the patient had ?tea colored? urine earlier but that has since improved. She is wondering if he may have urinary tract infection. The patient denies chest pain, shortness of breath, cough or congestion, N/V/D, dysuria, other rashes or lesions. <Alka German PA-C - Last Filed: 06/27/25 04:15> Related Data Home Medications: Home Medications ?Medication ?Instructions ?Recorded ?Confirmed ?Last Taken ?Type Florastor 1 cap PO DAILY 10/14/24 06/27/25 Unknown History acetaminophen 2 tablet BYMOUTH TID Pain 10/14/24 06/27/25 10/14/24 09:52 History 1000 mg duloxetine 30 mg capsule,delayed 30 mg PO BID 12/04/24 06/27/25 Unknown History release gabapentin 300 mg capsule 800 mg PO TID 12/04/24 06/27/25 Unknown History arginine 7 gram-glutam 7 1 packet PO BID 06/27/25 06/27/25 Unknown History gram-CaHMB 1.5 bqyd-hwugu-nx-min oral pwd pkt (Gurpreet (with collagen)) cholecalciferol (vitamin D3) 25 25 mcg PO DAILY 06/27/25 06/27/25 Unknown History mcg (1,000 unit) capsule collagenase clostridium histo. 250 1 applic topical DAILY 06/27/25 06/27/25 Unknown History unit/gram topical ointment (Santyl) cyanocobalamin (vitamin B-12) 1,000 mcg PO DAILY 06/27/25 06/27/25 Unknown History 1,000 mcg capsule diclofenac sodium 1 % topical gel 2 g topical DAILY PRN pain 06/27/25 06/27/25 Unknown History (Aspercreme Arthritis Pain) guaifenesin 600 mg tablet, 600 mg PO BID 06/27/25 06/27/25 Unknown History extended release 12 hr (Mucinex) lidocaine 4 % topical patch 1 patch transdermal Q12H 06/27/25 06/27/25 Unknown History (Lidocaine Pain Relief) methocarbamol 750 mg tablet 1,500 mg PO QID 06/27/25 06/27/25 Unknown History naloxone 0.4 mg/mL injection 0.4 mg IM Q2M PRN opioid reversal 06/27/25 06/27/25 Unknown History syringe oxycodone 5 mg tablet 5 mg PO Q4H PRN Pain 06/27/25 06/27/25 Unknown History pantoprazole 40 mg tablet,delayed 40 mg PO DAILY 06/27/25 06/27/25 Unknown History release <Alka German PA-C - Last Filed: 06/27/25 04:15> Allergies/Adverse Reactions: Allergies Allergy/AdvReac Type Severity Reaction Status Date / Time Sulfa (Sulfonamide Allergy Unknown Unknown Verified 10/14/24 15:51 Antibiotics) <Alka German PA-C - Last Filed: 06/27/25 04:15> Review of Systems Review of Systems: All systems reviewed & are unremarkable except as noted in HPI and below <Alka German PA-C - Last Filed: 06/27/25 04:15> [facility] Past Medical History Medical History: Medical History (Updated 06/29/25 @ 11:43 by Cecelia Ott PA-C) Sacral decubitus ulcer Right leg DVT Chronic anemia Tethered spinal cord Benign prostatic hyperplasia Chronic kidney disease Neurogenic bladder Neurogenic bowel, not elsewhere classified Paraplegia, incomplete Thoracic myelopathy Bladder stones Bladder cancer Requiring excision of tumor <Alka German PA-C - Last Filed: 06/27/25 04:15> Surgical History Surgical History: Surgical History Spinal cord stimulator status History of bladder surgery excision of bladder tumor History of back surgery (10/02/24) posterior lumbar thoracic spinal fusion with instrumentation, 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 given compression of thoracic myelopathy at [place] <Alka German PA-C - Last Filed: 06/27/25 04:15> Family History Family History: Family History Father Acute myocardial infarction, Onset Age: 57 Patient's father is Mother Patient's mother is Unknown Family history not known due to adoption <Alka German PA-C - Last Filed: 06/27/25 04:15> Social History Social History: Social History (Updated 06/27/25 @ 06:10 by Joi Aranda DO) Social History: Surrogate medical decision maker: Gricelda Delgado, spouse. Code status: Full code. Smoking status: Never smoker Second hand tobacco smoke exposure: No Alcohol intake: never Substance use: never Substance use type: does not use Do You Feel Safe in your Home?: Yes Lack of Transportation: No Lack of Food: Never True Current Housing: I Have Housing Concerned About Future Housing: No Difficulty Paying Gas/Electric Bills: No Difficulty Paying for Meds: No Currently Unemployed: No Education: High School Diploma/GED Difficulty w/ Childcare or Family Care: No Living arrangements: with family Additional living arrangements comments: The patient is . He used to live in [place] with his but is now in [place]. They have 3 children. Occupation/Education: retired Additional occupation/education comments: [employer] Spiritual care concerns: No <Alka German PA-C - Last Filed: 06/27/25 04:15> Exam Narrative: GENERAL: Well-appearing, well-nourished, and in no acute distress. HEAD: Normocephalic, atraumatic. EYES: PERRLA and EOMI. ENT: Nares clear, no rhinorrhea or epistaxis. Mucous membranes moist. NECK: Supple. CHEST: Clear to auscultation. No respiratory distress. HEART: Regular rate and rhythm. No murmur heard. Normal peripheral pulses. ABDOMEN: Normoactive bowel sounds. Abdomen soft with minimal tenderness to the right upper quadrant. Negative Rosenberg sign. No rebound or rigidity. EXTREMITIES: Normal range of motion. No edema. SKIN: Stage III approximately 4 cm x 3 cm sacral wound with clean margins, no purulence, minimal slight surrounding erythema, no crepitus, no fluctuation or induration NEURO: Alert oriented x4, answering all questions appropriately. Slow to respond. Moving upper extremities spontaneously, chronic paralysis to lower extremities unchanged from baseline <DIANE Llamas Last Filed: 06/27/25 04:15> Course COMPUTER EDUCATION PROFESSOR/PA Physician Supervision Patient admitted to the hospital. I was available for consultation while patient in the ED but did not personally examine them/was not directly involved in their care. <Rebecca Mcgovern MD - Last Filed: 07/02/25 18:58> Vital Signs Vital signs: Vital Signs Temperature 98.6 F 06/26/25 16:59 Pulse Rate 73 06/26/25 16:59 Respiratory Rate 19 06/26/25 16:59 Blood Pressure 120/64 06/26/25 16:59 Pulse Oximetry 97 06/26/25 16:59 Oxygen Delivery Room Air 06/26/25 16:59 Temperature 97.1 F L 07/01/25 14:00 Pulse Rate 64 07/01/25 14:00 Respiratory Rate 20 07/01/25 14:00 Blood Pressure 114/56 L 07/01/25 14:00 Pulse Oximetry 100 07/01/25 14:00 Oxygen Delivery Room Air 07/01/25 08:00 Fraction of Inspired Oxygen 21 06/30/25 21:29 <Alka German PA-C - Last Filed: 06/27/25 04:15> Vital Signs Temperature 98.6 F 06/26/25 16:59 Pulse Rate 73 06/26/25 16:59 Respiratory Rate 19 06/26/25 16:59 Blood Pressure 120/64 06/26/25 16:59 Pulse Oximetry 97 06/26/25 16:59 Oxygen Delivery Room Air 06/26/25 16:59 Temperature 97.1 F L 07/01/25 14:00 Pulse Rate 64 07/01/25 14:00 Respiratory Rate 20 07/01/25 14:00 Blood Pressure 114/56 L 07/01/25 14:00 Pulse Oximetry 100 07/01/25 14:00 Oxygen Delivery Room Air 07/01/25 08:00 Fraction of Inspired Oxygen 21 06/30/25 21:29 <Rebecca Mcgovern MD - Last Filed: 07/02/25 18:58> MDM - Recheck/Abnormal Lab/Rx MDM Narrative Medical decision making narrative: 74-year-old male with a history of paraplegia, chronic sacral decubitus ulcer, neurogenic bladder with chronic indwelling Zheng catheter, DVT on Eliquis, hyperlipidemia presents to the emergency department for increased lethargy, leukocytosis and altered mental status today. See HPI for further history. Patient is afebrile on arrival and nontoxic. He is resting comfortably in exam bed. Exam is notable for the above. CBC with leukocytosis of 12.2. Chemistries are largely unremarkable. UA indicative of urinary tract infection with greater than 100 white blood cells, red blood cells, 3+ leuk esterase and 4+ bacteria. Viral swabs are negative. CT brain shows no acute intracranial findings. CT abdomen pelvis shows findings consistent with ascending urinary tract infection. Chest x-ray shows no cardiopulmonary findings. Lactic acid within normal limits. Lipase within normal limits. During patient's ED stay he did become chilled and felt warm to the touch. A rectal temperature was obtained which was 104. Patient did meet sepsis criteria with fever, leukocytosis and pyelonephritis. He was given 30 mL/kg of fluids and started on vancomycin and Zosyn. Plan to admit to the hospitalist for further evaluation and management. Discussed with the hospitalist, Dr. Aranda, who agrees to admission. <Alka German PA-C - Last Filed: 06/27/25 04:15> Lab Data Result diagrams: 07/01/25 06:00 07/01/25 06:00 <Alka German PA-C - Last Filed: 06/27/25 04:15> Labs: Lab Results 06/26/25 06/26/25 06/26/25 Range/Units 17:42 17:58 18:25 WBC 12.2 H (4.5-10.0) K/mm3 RBC 4.04 L (4.6-6.20) M/mm3 Hgb 10.0 L (14.0-18.0) g/dL Hct 33.2 L (42.0-52.0) % MCV 82.2 (80-100) fl MCH 24.8 L (26-34) pg MCHC 30.1 L (32-36) g/dl RDW 17.4 H (11.5-14.5) % Plt Count 338 (150-375) k/mm3 MPV 8.9 (7.4-10.4) fl Immature Gran % (Auto) 0.5 (0-0.5) % Neut % (Auto) 82.1 H (45.5-73.1) % Lymph % (Auto) 7.0 L (18.3-44.2) % [place] % (Auto) 10.0 H (2.6-8.5) % Eos % (Auto) 0.2 (0-4.4) % Baso % (Auto) 0.2 (0.2-1.2) % Lymph # (Auto) 0.85 L (0.9-3.2) K/mm3 [place] # (Auto) 1.2 H (0.1-0.6) K/mm3 Eos # (Auto) 0.0 (0-0.3) K/mm3 Baso # (Auto) 0.0 (0.0-0.1) K/mm3 Abs Immat Gran (auto) 0.06 H (0.00-0.031) K/mm3 Absolute Neuts (auto) 10.0 H (1.3-6.7) K/mm3 Absolute Nucleated RBC 0.000 (0.0-0.012) K/mm3 Nucleated RBC % 0.0 (0.0-0.2) % PT 19.8 H (11.1-14.7) Seconds INR 1.7 APTT 43.5 H (22.3-36.8) Seconds Sodium 137 (137-145) mmol/L Potassium 3.9 (3.4-5.0) mmol/L Chloride 103 (98-107) mmol/L Carbon Dioxide 25 (22-30) mmol/L Anion Gap 9 (4-12) mmol/L BUN 29 H D (9-20) mg/dL Creatinine 1.04 (0.7-1.3) mg/dL Estim Creat Clear Calc 59 ml/min Estimated GFR > 60 (59 - ) Glucose 116 H (65-110) mg/dL Lactic Acid 1.5 (0.7-2.0) mmol/L Calcium 9.7 (8.4-10.2) mg/dL Total Bilirubin 0.3 (0.2-1.3) mg/dL AST 18 (17-59) U/L ALT 11 (6-50) U/L Alkaline Phosphatase 74 (38-126) U/L Total Creatine Kinase 28 L (55-170) U/L Troponin I < 0.012 (0.000-0.034) ng/mL Total Protein 6.9 (6.3-8.2) g/dL Albumin 3.9 (3.5-5.1) g/dL Lipase 31 (23-300) U/L Urine Color Yellow (Yellow) Urine Appearance Cloudy H (Clear) Urine pH 8.5 (5.0-9.0) Ur Specific [place] 1.023 (1.001-1.035) Urine Protein 2+ H (Negative) mg/dL Urine Glucose (UA) Negative (Negative) mg/dL Urine Ketones Negative (Negative) mg/dL Ur Blood (Man) 3+ H (Negative) Urine Nitrate Negative (Negative) Urine Bilirubin Negative (Negative) Urine Urobilinogen 0.2 (<2.0) mg/dL Add Ur Microanalysis Reviewed Leukocyte Esterase Rfl 3+ H (Negative) TIFFANY/UL Urine RBC >100 H (0-2) /hpf Urine WBC >100 H (0-3) /hpf Ur Squamous Epith Cells None seen (Few) /hpf Urine Bacteria 4+ H /hpf Urine Casts 3-5 Influenza A (RT-PCR) Negative (Negative) Influenza B (RT-PCR) Negative (Negative) RSV (RT-PCR) Negative (Negative) SARS-CoV-2 RNA (RT-PCR) Negative (Negative) <Alka German PA-C - Last Filed: 06/27/25 04:15> Lab Results 06/26/25 06/26/25 06/26/25 Range/Units 17:42 17:58 18:25 WBC 12.2 H (4.5-10.0) K/mm3 RBC 4.04 L (4.6-6.20) M/mm3 Hgb 10.0 L (14.0-18.0) g/dL Hct 33.2 L (42.0-52.0) % MCV 82.2 (80-100) fl MCH 24.8 L (26-34) pg MCHC 30.1 L (32-36) g/dl RDW 17.4 H (11.5-14.5) % Plt Count 338 (150-375) k/mm3 MPV 8.9 (7.4-10.4) fl Immature Gran % (Auto) 0.5 (0-0.5) % Neut % (Auto) 82.1 H (45.5-73.1) % Lymph % (Auto) 7.0 L (18.3-44.2) % [place] % (Auto) 10.0 H (2.6-8.5) % Eos % (Auto) 0.2 (0-4.4) % Baso % (Auto) 0.2 (0.2-1.2) % Lymph # (Auto) 0.85 L (0.9-3.2) K/mm3 [place] # (Auto) 1.2 H (0.1-0.6) K/mm3 Eos # (Auto) 0.0 (0-0.3) K/mm3 Baso # (Auto) 0.0 (0.0-0.1) K/mm3 Abs Immat Gran (auto) 0.06 H (0.00-0.031) K/mm3 Absolute Neuts (auto) 10.0 H (1.3-6.7) K/mm3 Absolute Nucleated RBC 0.000 (0.0-0.012) K/mm3 Nucleated RBC % 0.0 (0.0-0.2) % PT 19.8 H (11.1-14.7) Seconds INR 1.7 APTT 43.5 H (22.3-36.8) Seconds Sodium 137 (137-145) mmol/L Potassium 3.9 (3.4-5.0) mmol/L Chloride 103 (98-107) mmol/L Carbon Dioxide 25 (22-30) mmol/L Anion Gap 9 (4-12) mmol/L BUN 29 H D (9-20) mg/dL Creatinine 1.04 (0.7-1.3) mg/dL Estim Creat Clear Calc 59 ml/min Estimated GFR > 60 (59 - ) Glucose 116 H (65-110) mg/dL Lactic Acid 1.5 (0.7-2.0) mmol/L Calcium 9.7 (8.4-10.2) mg/dL Total Bilirubin 0.3 (0.2-1.3) mg/dL AST 18 (17-59) U/L ALT 11 (6-50) U/L Alkaline Phosphatase 74 (38-126) U/L Total Creatine Kinase 28 L (55-170) U/L Troponin I < 0.012 (0.000-0.034) ng/mL Total Protein 6.9 (6.3-8.2) g/dL Albumin 3.9 (3.5-5.1) g/dL Lipase 31 (23-300) U/L Urine Color Yellow (Yellow) Urine Appearance Cloudy H (Clear) Urine pH 8.5 (5.0-9.0) Ur Specific [place] 1.023 (1.001-1.035) Urine Protein 2+ H (Negative) mg/dL Urine Glucose (UA) Negative (Negative) mg/dL Urine Ketones Negative (Negative) mg/dL Ur Blood (Man) 3+ H (Negative) Urine Nitrate Negative (Negative) Urine Bilirubin Negative (Negative) Urine Urobilinogen 0.2 (<2.0) mg/dL Add Ur Microanalysis Reviewed Leukocyte Esterase Rfl 3+ H (Negative) TIFFANY/UL Urine RBC >100 H (0-2) /hpf Urine WBC >100 H (0-3) /hpf Ur Squamous Epith Cells None seen (Few) /hpf Urine Bacteria 4+ H /hpf Urine Casts 3-5 Influenza A (RT-PCR) Negative (Negative) Influenza B (RT-PCR) Negative (Negative) RSV (RT-PCR) Negative (Negative) SARS-CoV-2 RNA (RT-PCR) Negative (Negative) <Rebecca Mcgovern MD - Last Filed: 07/02/25 18:58> Discharge Plan Discharge Clinical Impression: Pyelonephritis Sepsis Qualifiers: Sepsis type: sepsis due to unspecified organism Sepsis acute organ dysfunction status: with acute organ dysfunction Severe sepsis acute organ dysfunction type: encephalopathy Severe sepsis shock status: without septic shock Qualified Code(s): A41.9 - Sepsis, unspecified organism <Alka German PA-C - Last Filed: 06/27/25 04:15> Patient Disposition: Still a Patient <Alka German PA-C - Last Filed: 06/27/25 04:15> Condition: Stable <Alka German PA-C - Last Filed: 06/27/25 04:15>
--- OUTSIDE RECORDS SUMMARY | 2025-06-26 17:39 | XMS_ITS ---
Author Organization [facility] ([address]) Address [address] [place] [address] Care Team Providers Care Drawer Upfitter Name Role Phone Sj Benson Primary Care Provider UnavailDr. Shay Wellington Unavailable [phone] ZZ-Migration, Provider Unavailable Unavailab le Allergies Allergen (clinical drug ingredient) Drug/Non Drug Allergy documented on EMR Reaction Allergy Type Onset Date Status Substance with sulfonamide structure and antibacterial mechanism of action (substance) SULFONAMIDES (uncoded) Unknown Allergy Activ e REASON FOR VISIT [facility] Conversion Encounter Medications Medication SIG (Take, Route, Fr equency, Duration) Notes Start Date End Date Status Finasteride 1 MG 1 tab(s) orally once a day; Duration: 30 day(s) Active Florastor 250 MG 1 cap(s) orally 2 times a day Active DULoxetine HCl 30 MG 1 cap(s) orally 2 times a day Active traMADol HCl 50 MG 1 tab(s) orally PRN Active Tamsulosin HCl 0.4 MG 1 cap(s) orally on ce a day; Duration: 30 day(s) Active Encounters Encounter Location Date Provider Diagnosis [address] [place] [address] 05/06/2024 Provider ZZ-Migration Plan Of Treatment No Information Progress Notes * Ryan DELGADODOB:1950 ([age] yo M)Acc No.[id number]:05/06/2024 Patient: Ryan OSBORNE Provider: Feliz cao Migration :1950 A ge:73 Y S ex:Male Date:05/06/2024 [facility] Pcp:Sj Benson Subjective: * Chief Complaints: * 1 . [facility] To Medispan Conversion Encounter. * Medical History: * Medications: T aking Finasteride 1 MG Tablet 1 tab(s) orally once [...] 1 cap(s) orally once a day * Allergies: S ULFONAMIDES. Objective: * Vitals: Assessment: Plan: * Treatment: * Billing Information: * Visit Code: * Procedure Codes: * Electronic signature of Clay ESPITIA-Migration on 06/26/2025 at 05:39 PM CDT Sign off status: Pending * Provider: Feliz cao Migration Date: 0 05/06/2024 Generated for Sarahi chaudhry/Adryan/Montysmitting on: 0 06/26/2025 05:39 PM CDT
--- OUTSIDE RECORDS SUMMARY | 2025-06-26 17:39 | XMS_ITS | Encounter Summary ---
Author Organization [facility] Address [address] [place] [address] Care Team Providers Care Laundry Machine Tender Name Role Phone Sj Benson MD Primary Care Provider [phone] Encounter Details Date Type Department Care Team (Late st Contact Info) Description 06/26/2025 Orders Only [facility] [place] [address] [place] [address] [place] [address] Social History Tobacco Use Types Packs/Day Years [...] as of this encounter Results * (ABNORMAL) CBC W/DIFF AUTOMATED (06/26/2025 12:42 PM CDT) WBC 14.87(H) 4.5 - 11.0 x10'3/uL 06/26/2025 3:30 PM CDT [facility] RBC 4.03(L) 4.70 - 6.10 x10'6/uL 06/26/2025 3:30 PM CDT [facility] HGB 10.4(L) 14.0 - 18.0 G/DL 06/26/2025 3:30 PM CDT [facility] HCT 33.6(L) 43.0 - 54.0 % 06/26/2025 3:30 PM CDT [facility] MCV 83.4 80.0 - 94.0 FL 06/26/2025 3:30 PM CDT [facility] MCH 25.8(L) 27.0 - 31.0 PG 06/26/2025 3:30 PM CDT [facility] MCHC 31.0(L) 32.0 - 36.0 G/DL 06/26/2025 3:30 PM CDT [facility] RDW 17.5(H) 11.5 - 14.5 % 06/26/2025 3:30 PM CDT [facility] PLT 361 130 - 400 x10'3/uL 06/26/2025 3:30 PM CDT [facility] MPV 9.3 9.3 - 12.2 FL 06/26/2025 3:30 PM CDT [facility] DIFFERENTIAL TYPE MANUAL DIFFERENTIAL 06/26/2025 4:12 PM CDT [facility] SEG NEUTROPHILS 91 % 4:12 PM CDT [facility] LYMPHOCYTES 3 % 06/26/2025 4:12 PM CDT [facility] MONOCYTES 5 % 06/26/2025 4:12 PM CDT [facility] BASOPHILS 1 % 06/26/2025 4:12 PM CDT [facility] ABS. NEUTROPHILS 13.53(H) 1.80 - 7.70 x10'3/uL 06/26/2025 4:12 PM CDT [facility] ABS. LYMPHOCYTES 0.45(L) 1.00 - 4.80 x10'3/uL 06/26/2025 4:12 PM CDT [facility] ABS. MONOCYTES 0.74 0.30 - 0.82 x10'3/uL 06/26/2025 4:12 PM CDT [facility] ABS. BASOPHILS 0.15(H) 0.01 - 0.08 x10'3/uL 06/26/2025 4:12 PM CDT [facility] RBC MORPHOLOGY RBC MORPHOLOGY APPEARS NORMAL. SLIDE REVIEWED. 06/26/2025 4:12 PM CDT [facility] PLT EST. ADEQUATE 06/26/2025 4:12 PM CDT [facility] 06/26/2025 12:4 2 PM CDT us [place] DO LABORATORY Final Resu lt [facility] [address] [place] [address], [place] [phone] * (ABNORMAL) COMPREHENSIVE METABOLIC PANEL (06/26/2025 12:42 PM CDT) GLUCOSE 112(H) 70 - 99 MG/DL 06/26/2025 3:48 PM CDT [facility] BUN 27(H) 7 - 18 MG/DL 06/26/2025 3:48 PM CDT [facility] CREATININE S/P/B 1.01 0.7 - 1.3 MG/DL 06/26/2025 3:48 PM CDT [facility] SODIUM S/P/B 139 136 - 145 MMOL/L 06/26/2025 3:48 PM CDT [facility] POTASSIUM S/P/B 3.8 3.5 - 5.1 MMOL/L 06/26/2025 3:48 PM CDT [facility] CHLORIDE S/P/B 104 97 - 115 MMOL/L 06/26/2025 3:48 PM CDT [facility] CO2 26.3 21 - 32 MMOL/L 06/26/2025 3:48 PM CDT [facility] CALCIUM S/P/B 9.7 8.5 - 10.1 MG/DL 06/26/2025 3:48 PM CDT [facility] BILIRUBIN TOTAL S/P/B 0.4 0.2 - 1.2 MG/DL 06/26/2025 3:48 PM CDT [facility] Comment: THIS ASSAY IS NOT RECOMMENDED FOR PATIENTS UNDERGOING TREATMENT WITH ELTROMBOPAG DUE TO THE POTENTIAL FOR FALSELY ELEVATED RESULTS. TOTAL PROTEIN S/P/B 6.1(L) 6.4 - 8.2 G/DL 06/26/2025 3:48 PM CDT [facility] ALBUMIN S/P/B 3.1(L) 3.4 - 5.0 G/DL 06/26/2025 3:48 PM CDT [facility] AST 9(L) 15 - 37 U/L 06/26/2025 3:48 PM CDT [facility] ALT 13(L) 16 - 60 U/L 06/26/2025 3:48 PM CDT [facility] ALKALINE PHOSPHATASE S/P/B 84 50 - 136 U/L 06/26/2025 3:48 PM CDT [facility] ANION GAP 8.7 2 - 10 MMOL/L 06/26/2025 3:48 PM CDT [facility] BUN CREATININE RATIO 26.7(H) 6 - 26 06/26/2025 3:48 PM CDT [facility] A/G RATIO 1.0 1.0 - 2.0 RATIO 06/26/2025 3:48 PM CDT [facility] GFR ESTIMATE 77(L) >90 ML/MIN/1.7 3 M2 06/26/2025 3:48 PM CDT [facility] Comment: NOTE: eGFR is not calculated for patients <18 years of age or gender unknown. This is an estimated GFR calculation using the new CKD EPI creatinine equation without race and so does not require a correction factor for race. This estimated GFR should not be used for calculating drug doses. 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
--- OUTSIDE RECORDS SUMMARY | 2025-06-26 17:39 | XMS_ITS | Clinical Summary ---
Author Organization [facility] Address [address] [place] [id number] Care Team Providers Care Egg Candler Name Role Phone Sj Benson MD Primary Care Provider [phone] Allergies Active Allergy Reactions Criticality Noted Date [...] Date Diagnosed Date Preoperative cardiovascular examination 08/04/20 Assessment & Plan (08/04/2021 2:58 PM CDT): [...] change in either 1 is significantly abnormal. Encounters Date Type Department Care Team Description 06/26/2025 3:06 PM CDT Hospital Encounter [facility] [place] [address] Wen Spring DO 06/26/[address] [facility] [place] [address] Wen Spring, from Last 3 Months Immunizations Immunization Administration Dates Next Due MODERNA COVID-19 (12+) [...] 69 08/25/2021 3:00 PM CDT Temperature 36.4 C (97.6 F) 08/25/2021 3:00 PM CDT Respiratory Rate 18 08/25/2021 3:00 PM CDT Oxygen Saturation 96% 08/25/2021 3:00 PM CDT Inhaled Oxygen Concentration - - Weight 99.5 kg (219 lb 5.7 oz) 08/25/2021 7:45 A M CDT Height 182.9 cm (6') 08/25/2021 7:45 AM CDT Body Mass Index 29.75 08/25/2021 7:45 AM CDT Plan of Treatment Health Maintenance Due Date Last Done Comments Hepatitis C 1966 Pneumococcal Vaccine: 50+ Years (1 of 1 - PCV) 1998 Zoster Vaccines (1 of 2) 1998 Annual Medicare Wellness Visit 2013 RSV Immunization or 60+ Years (1 - 1-dose 75+ series) 2023 COVID-19 Vaccine (3 - 2023-2 5 season) 2024 03/10/2021, 02/10/2021 DTaP, Tdap and Td Vaccines ( 3 - Td or Tdap) 08/10/2027 08/10/2017, 03/04/2017 Meningococcal B Vaccine Aged Out No l onger eligible based on patient's age to complete this topic Meningococcal Vaccine Aged Out No lemuel riley eligible based on patient's age to complete this topic RSV Immunizations Under 20 Months Aged Out No longer eligible b ased on patient's age to complete this topic Medical Devices Implanted Type Area Mine Motor Operator Device Identifier Shelf Expiration Date Model / Serial / Lot Stimulator Lead-12/07/2023 Implanted:Qty: 1 on 12/07/[address] [employer] [id number] / / Stimulator Implant- 024 Implanted:Qty: 1 on 12/07/[address] [facility] [employer] [facility] [employer] [id number] / / Description:MR CONDITIONAL A T 1.5 T ONLY, NEED REMOTE TO TURN OFF STIMULATION , NORMAL JACKI , MAX 30 MINUTE SCAN TIME IN 60 MINUTE WINDOW Procedures Procedure Name Priority Date/Time Associated Diagnosis Comments COMPREHENSIVE METABOLIC PANEL Routine 06/26/2025 12:42 PM CDT 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, stage II (mild) Fatigue CBC W/DIFF AUTOMATED Routine 06/26/2025 12:42 PM CDT 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, stage II (mild) Fatigue from Last 3 Months Results * (ABNORMAL) COMPREHENSIVE METABOLIC PANEL (06/26/2025 12:42 PM CDT) GLUCOSE 112(H) 70 - 99 MG/DL 06/26/2025 3:48 PM CDT [facility] BUN 27(H) 7 - 18 MG/DL 06/26/2025 3:48 PM CDT [facility] CREATININE S/P/B 1.01 0.7 - 1.3 MG/DL 06/26/2025 3:48 PM CDT [facility] SODIUM S/P/B 139 136 - 145 MMOL/L 06/26/2025 3:48 PM CDT [facility] POTASSIUM S/P/B 3.8 3.5 - 5.1 MMOL/L 06/26/2025 3:48 PM CDT [facility] CHLORIDE S/P/B 104 97 - 115 MMOL/L 06/26/2025 3:48 PM CDT [facility] CO2 26.3 21 - 32 MMOL/L 06/26/2025 3:48 PM CDT [facility] CALCIUM S/P/B 9.7 8.5 - 10.1 MG/DL 06/26/2025 3:48 PM CDT [facility] BILIRUBIN TOTAL S/P/B 0.4 0.2 - 1.2 MG/DL 06/26/2025 3:48 PM T [facility] Comment: THIS ASSAY IS NOT RECOMMENDED FOR PATIENTS UNDERGOING TREATMENT WITH ELTROMBOPAG DUE TO THE POTENTIAL FOR FALSELY ELEVATED RESULTS. TOTAL PROTEIN S/P/B 6.1(L) 6.4 - 8.2 G/DL 06/26/2025 3:48 PM CDT [facility] ALBUMIN S/P/B 3.1(L) 3.4 - 5.0 G/DL 06/26/2025 3:48 PM CDT [facility] AST 9(L) 15 - 37 U/L 06/26/2025 3:48 PM CDT [facility] ALT 13(L) 16 - 60 U/L 06/26/2025 3:48 PM CDT [facility] ALKALINE PHOSPHATASE S/P/B 84 50 - 136 U/L 06/26/2025 3:48 PM CDT [facility] ANION GAP 8.7 2 - 10 MMOL/L 06/26/2025 3:48 PM CDT [facility] BUN CREATININE RATIO 26.7(H) 6 - 26 06/26/2025 3:48 PM CDT [facility] A/G RATIO 1.0 1.0 - 2.0 RATIO 06/26/2025 3:48 PM CDT [facility] GFR ESTIMATE 77(L) >90 ML/MIN/1.7 3 M2 06/26/2025 3:48 PM CDT [facility] Comment: NOTE: eGFR is not [...] Wen Spring DO LABORATORY Final Resu lt [facility] [address] [place] [address], [place] [phone] * (ABNORMAL) CBC W/DIFF AUTOMATED (06/26/2025 12:42 PM CDT) WBC 14.87(H) 4.5 - 11.0 x10'3/uL 06/26/2025 3:30 PM CDT [facility] RBC 4.03(L) 4.70 - 6.10 x10'6/uL 06/26/2025 3:30 PM CDT [facility] HGB 10.4(L) 14.0 - 18.0 G/DL 06/26/2025 3:30 PM CDT [facility] HCT 33.6(L) 43.0 - 54.0 % 06/26/2025 3:30 PM CDT [facility] MCV 83.4 80.0 - 94.0 FL 06/26/2025 3:30 PM CDT [facility] MCH 25.8(L) 27.0 - 31.0 PG 06/26/2025 3:30 PM CDT [facility] MCHC 31.0(L) 32.0 - 36.0 G/DL 06/26/2025 3:30 PM CDT [facility] RDW 17.5(H) 11.5 - 14.5 % 06/26/2025 3:30 PM CDT [facility] PLT 361 130 - 400 x10'3/uL 06/26/2025 3:30 PM CDT [facility] MPV 9.3 9.3 - 12.2 FL 06/26/2025 3:30 PM CDT [facility] DIFFERENTIAL TYPE MANUAL DIFFERENTIAL 06/26/2025 4:12 PM CDT [facility] SEG NEUTROPHILS 91 % 4:12 PM CDT [facility] LYMPHOCYTES 3 % 06/26/2025 4:12 PM CDT [facility] MONOCYTES 5 % 06/26/2025 4:12 PM CDT [facility] BASOPHILS 1 % 06/26/2025 4:12 PM CDT [facility] ABS. NEUTROPHILS 13.53(H) 1.80 - 7.70 x10'3/uL 06/26/2025 4:12 PM CDT [facility] ABS. LYMPHOCYTES 0.45(L) 1.00 - 4.80 x10'3/uL 06/26/2025 4:12 PM CDT [facility] ABS. MONOCYTES 0.74 0.30 - 0.82 x10'3/uL 06/26/2025 4:12 PM CDT [facility] ABS. BASOPHILS 0.15(H) 0.01 - 0.08 x10'3/uL 06/26/2025 4:12 PM CDT [facility] RBC MORPHOLOGY RBC MORPHOLOGY APPEARS NORMAL. SLIDE REVIEWED. 06/26/2025 4:12 PM CDT [facility] PLT EST. ADEQUATE 06/26/2025 4:12 PM CDT [facility] 06/26/2025 12:4 2 PM CDT us Wen Spring DO LABORATORY Final Resu lt [facility] [address] [place] [address], from Last 3 Months Insurance MEDICARE [facility] Care Teams Egg Candler Relationship Specialty Start Date End Date Sj Benson MD PCP - General FAMILY PRACTICE 07/29/21
--- OUTSIDE RECORDS SUMMARY | 2025-06-26 17:39 | XMS_ITS ---
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 Name Role Phone Tran Osullivan Unavailable Wen [place] Unavailable Functional Status No Results Mental Status No Results Allergies and Intolerances Name Onset Date Reaction Severity Sulfa (Sulfonamide Antibiotics) (Allergy) Wed 17:51:00 EDT 2024 Encounters Program Name Primary Diagnosis Admission Date/Time Dis charge Date/Time [facility] Paraplegia, unspecified WedFeb 27 11:00:00 EDT 2024 Immunizations Name Dates Status TST-PPD intradermal WedFeb 28 01:00:00 EDT 2024 Completed TST-PPD intradermal Wed Mar 07 01:00:00 EDT 2024 Completed TST-PPD intradermal Tyra Mar 01 01:00:00 EDT 2024 Completed TST-PPD intradermal Tyra Mar 08 01:00:00 EDT 2024 Completed Medications Medication Directions Start Date End Date OxyCONTIN 10 mg tablet,crush resistant,extended release 10 mg TABLET,ORAL ONLY,EXTENDED RELEASE 12 HR Oral 1 Time Daily Indication: pain WedMay 29 14:00:00 EDT 2024Jun 01 10:16:00 EDT 2024 H-Chlor 12 0.125 % solution 0.125% SOLUT ION, NON-ORAL Topical 1 Time Daily Indication: Wound care Cleanse sacral wound with NS or WC, pack with Shorty/Dakin's 0.125% soaked gauze, cover with silicone boarded foam dressing, change daily and PRN UT WedMay 23 05:00:00 EDT 2024 Santyl Collagenase Ointment 30 GM 1 application Topical 1 Time Daily Indication: Wound Cleanse sacral wound with NS or WC, pack with Shorty/Dakin's 0.125% soaked gauze, cover with silicone boarded foam dressing, change daily and PRN UT WedMay 23 05:00:00 EDT 2024 cefdinir 300 mg capsule 1 CAPSULE CAPSUL E Oral 2 Times Daily for 7 Days Indication: UTI WedMay 21 10:45:00 EDT 2024May 21 12:58:00 EDT 2024 cefdinir 300 mg capsule 1 CAPSULE CAPSUL E Oral 2 Times Daily for 7 Days Indication: UTI WedMay 21 07:00:00 EDT 2024May 28 06:59:00 EDT 2024 OxyCONTIN 10 mg tablet,crush resistant,extended release 1 tablet TABLET,ORAL ONLY,EXTENDED RELEASE 12 HR Oral 1 Time Daily for 5 Days Indication: Pain WedMay 11 06:00:00 EDT 2024May 16 05:59:00 EDT 2024 Stimulant Laxative Plus 8.6 mg-50 mg tablet 1 TABLET Oral 2 Times Daily Indication: Constipation WedMay 01 15:07:00 EDT 2024May 27 18:45:00 EDT 2024 Stimulant Laxative Plus 8.6 mg-50 mg tablet 1 TABLET Oral 2 Times Daily Indication: Constipation WedApr 25 05:00:00 EDT 2024May 01 15:08:00 EDT 2024 DEPO-MedroL 20 mg/mL suspension for injection 20 mg VIAL (ML) Intramuscular 1 Time Daily for 1 Day Indication: osteoarthritis WedApril 19 07:00:00 EDT 2024April 20 06:59:00 EDT 2024 Arthritis Pain (diclofenac) 1 % topical gel 1 application GEL (GRAM) Topical 3 Times Daily Indication: pain WedApril 19 13:00:00 EDT 2024April 19 14:20:00 EDT 2024 diclofenac 1 % topical gel 1 application GEL (GRAM) Topical 3 Times Daily Indication: painPut on L shoulder WedApril 19 14:19:00 EDT 2024 ciprofloxacin 500 mg tablet 1 Tablet TAB LET Oral 2 Times Daily for 10 Days Indication: Urinary Tract Infection WedApril 17 18:00:00 EDT 2024Apr 27 17:59:00 EDT 2024 lidocaine 5 % topical patch 1 patch ADHE SIVE PATCH, MEDICATED Topical 2 Times Daily Indication: Apply patch to L shoulder, remove HS Indication: Apply patch to L shoulder, remove HS WedApril 13 06:00:00 EDT 2024May 13 07:54:00 EDT 2024 gabapentin 800 mg tablet 1 tablet TABLET Oral 3 Times Daily Indication: Neuropathy WedMar 19 15:00:00 EDT 2024 naloxone 0.4 mg/mL injection syringe 0.04mg SYRINGE (ML) Intramuscular PRN Indication: Opioid Overdose 0.04 to 2mg; may repeat with escalating doses every 2 to 3 minutes PRN & alert MD. WedMar 14 17:00:00 ED2024 cholecalciferol (vitamin D3) 25 mcg (1,000 unit) capsule 1 CAPSULE Oral 1 Time Daily Indication: supplement supplement WedMar 11 09:00:00 2024 cyanocobalamin (vit B-12) 1,000 mcg tablet 1 TABLET Oral 1 Time Daily Indication: supplement supplement WedMar 11 09:00:00 2024 Mucus Relief ER 600 mg tablet, extended release 1 Tablet TABLET, EXTENDED RELEASE 12 HR Oral 2 Times Daily for 7 Days Indication: Cough WedMar 07 06:00:00 EDT 2024Mar 14 05:59:00 ED2024 Mucinex 600 mg tablet, extended release 1 Tablet TABLET, EXTENDED RELEASE 12 HR Oral PRN 2 Times Daily Indication: Cough WedMar 15 06:00:00 ED2024 Santyl Collagenase Ointment 30 GM 1 application Topical 3 Times Weekly Indication: Wound Cleanse wound to buttocks with NS, apply santyl to necrotic tissue only, skin prep alexey-wound, apply ZINC barrier cream to superficial area, then apply transparent film to wound edges & area the bridge will be placed. Cut foam in spiral pattern packing the undermining 12-6. Bridge to either hip. Apply suction tubing & connect to wound vac with setting of 125mmHg. Change every Wednesday, Wednesday, Wednesday & PRN WedMar 06 19:00:00 EDT 2024May 23 12:42:00 ED2024 methocarbamoL 750 mg tablet 2 TABLET Ora l 4 Times Daily Indication: muscle spasms WedMar 05 07:00:00 EDT 2024 Eliquis 5 mg tablet 1 tablet TABLET Oral Every 12 Hours Indication: DVT proph WedMar 02 15:57:00 EDT 2024 docusate sodium 100 mg capsule 1 capsule CAPSULE Oral 2 Times Daily Indication: Constipation WedMar 02 15:58:00 EDT 2024Apr 25 14:45:00 EDT 2024 DULoxetine 30 mg capsule,delayed release 1 capsule CAPSULE,DELAYED RELEASE (ENTERIC COATED) Oral 2 Times Daily Indication: Neuropathic Pain WedMar 02 15:59:00 EDT 2024 finasteride 5 mg tablet 1 tablet TABLET Oral 1 Time Daily Indication: BPH WedMar 02 15:59:00 EDT 2024 gabapentin 800 mg tablet 1 tablet TABLET Oral 3 Times Daily Indication: Neuropathy WedMar 02 15:59:00 EDT 2024Mar 19 14:32:00 EDT 2024 lidocaine 5 % topical patch 1 patch ADHE SIVE PATCH, MEDICATED Topical 2 Times Daily Indication: Apply patch to area of pain, remove HS WedMar 02 16:00:00 EDT 2024 OxyCONTIN 10 mg tablet,crush resistant,extended release 1 tablet TABLET,ORAL ONLY,EXTENDED RELEASE 12 HR Oral Every 12 Hours Indication: Pain WedMar 02 16:00:00 EDT 2024May 10 18:26:00 EDT 2024 pantoprazole 40 mg tablet,delayed release 1 tablet TABLET, DELAYED RELEASE (ENTERIC COATED) Oral 1 Time Daily Indication: GERD WedMar 02 16:01:00 ED2024 Florastor 250 mg capsule 1 capsule CAPSU LE Oral 1 Time Daily Indication: GI proph WedMar 02 16:01:00 EDT 2024 senna 8.6 mg tablet 1 tablet TABLET Oral 2 Times Daily Indication: Constipation WedMar 02 16:02:00 EDT 2024Apr 25 14:45:00 EDT 2024 tamsulosin 0.4 mg capsule 1 capsule CAPS ULE Oral 1 Time Daily Indication: BPH WedMar 02 16:02:00 EDT 2024 acetaminophen 500 mg tablet 2 tablets TA BLET Oral 3 Times Daily Indication: pain WedMar 02 16:02:00 EDT 2024 acetaminophen 500 mg tablet 2 tablets TA BLET Oral 3 Times Daily Indication: pain WedMar 01 10:00:00 EDT 2024Mar 02 16:03:00 EDT 2024 Gurpreet 7 gram-7 gram-1.5 gram oral powder packet Give POWDER IN PACKET (EA) Oral 2 Times Daily Indication: wound healing WedFeb 28 13:00:00 EDT 2024Feb 28 13:25:00 EDT 2024 Gurpreet 7 gram-7 gram-1.5 gram oral powder packet One packet POWDER IN PACKET (EA) Oral 2 Times Daily Indication: wound healingMix each packet with 8-10 oz of water or juice BID WedFeb 28 13:21:00 EDT 2024Feb 28 09:52:00 EDT 2024 Gurpreet (with collagen) 7 gram-7 gram-1.5 gram oral powder packet One packet Oral 2 Times Daily Indication: wound healing Mix each packet with 8-10 oz of water or juice BID WedFeb 28 13:00:00 EDT 2024 acetaminophen 500 mg tablet 2 tablets TA BLET Oral Every 6 Hours Indication: pain *DO NOT EXCEED 3GR IN 24HRS BY ALL SOURCES* WedFeb 28 15:01:00 EDT 2024Mar 01 06:22:00 EDT 2024 acetaminophen 500 mg tablet 2 tablets TA BLET Oral PRN Every 6 Hours Indication: Pain WedFeb 27 17:00:00 EDT 2024Feb 27 21:31:00 EDT 2024 Eliquis 5 mg tablet 1 tablet TABLET Oral Every 12 Hours Indication: DVT proph WedFeb 27 17:00:00 EDT 2024Mar 02 15:58:00 EDT 2024 diclofenac 1 % topical gel 1 application GEL (GRAM) Topical PRN 1 Time Daily Indication: Apply gel to area of pain daily PRN WedFeb 27 17:00:00 ED2024 docusate sodium 100 mg capsule 1 capsule CAPSULE Oral 2 Times Daily Indication: Constipation WedFeb 27 17:00:00 EDT 2024Mar 02 15:59:00 EDT 2024 DULoxetine 30 mg capsule,delayed release 1 capsule CAPSULE,DELAYED RELEASE (ENTERIC COATED) Oral 2 Times Daily Indication: Neuropathic Pain WedFeb 27 16:00:00 EDT 2024Mar 02 15:59:00 EDT 2024 finasteride 5 mg tablet 1 tablet TABLET Oral 1 Time Daily Indication: BPH WedFeb 27 17:00:00 EDT 2024Mar 02 16:00:00 EDT 2024 gabapentin 800 mg tablet 1 tablet TABLET Oral 3 Times Daily Indication: Neuropathy WedFeb 27 17:00:00 EDT 2024Mar 02 16:00:00 EDT 2024 lidocaine 5 % topical patch 1 patch ADHE SIVE PATCH, MEDICATED Topical 2 Times Daily Indication: Apply patch to area of pain, remove HS WedFeb 27 17:00:00 EDT 2024Mar 02 16:01:00 EDT 2024 methocarbamoL 1,000 mg tablet 1.5 tablets TABLET Oral 4 Times Daily Indication: Muscle Spasms WedFeb 27 18:00:00 EDT 2024Mar 05 01:20:00 EDT 2024 oxyCODONE 5 mg tablet 1 tablet TABLET Or al PRN Every 4 Hours Indication: Pain WedFeb 27 17:00:00 ED2024 OxyCONTIN 10 mg tablet,crush resistant,extended release 1 tablet TABLET,ORAL ONLY,EXTENDED RELEASE 12 HR Oral Every 12 Hours Indication: Pain WedFeb 27 18:00:00 EDT 2024Mar 02 16:01:00 EDT 2024 pantoprazole 40 mg tablet,delayed release 1 tablet TABLET, DELAYED RELEASE (ENTERIC COATED) Oral 1 Time Daily Indication: GERD WedFeb 27 17:00:00 EDT 2024Mar 02 16:01:00 EDT 2024 polyethylene glycoL 3350 17 gram/dose oral powder 17 grams POWDER (GRAM) Oral PRN 1 Time Daily Indication: Constipation WedFeb 27 17:00:00 EDT 2024 Sun May 27 18:45:00 EDT 2024 Florastor 250 mg capsule 1 capsule CAPSU LE Oral 1 Time Daily Indication: GI proph WedFeb 27 17:00:00 EDT 2024Mar 02 16:02:00 EDT 2024 TubersoL 5 tub. unit/0.1 mL intradermal injection solution 0.1 ml VIAL (ML) Intradermal 1 Time Weekly for 2 Weeks Indication: . 1st injection on admission, then one week after. Read between 48 and 72 hours WedFeb 27 16:00:00 EDT 2024Mar 13 15:59:00 EDT 2024 TubersoL 5 tub. unit/0.1 mL intradermal injection solution Read Results VIAL (ML) Other 1 Time Weekly for 2 Weeks Indication: . Read results between 48-72 hours after 1st and 2nd (1 week apart). Any reading of 10mm or greater results in a positive test, an x-ray will need to be ordered as a follow up. WedFeb 27 16:00:00 EDT 2024Mar 13 15:59:00 EDT 2024 senna 8.6 mg tablet 1 tablet TABLET Oral 2 Times Daily Indication: Constipation WedFeb 27 17:00:00 EDT 2024Mar 02 16:02:00 EDT 2024 tamsulosin 0.4 mg capsule 1 capsule CAPS ULE Oral 1 Time Daily Indication: BPH WedFeb 27 18:00:00 EDT 2024Mar 02 16:03:00 EDT 2024 acetaminophen 500 mg tablet 2 tablets TA BLET Oral Every 6 Hours Indication: pain WedFeb 27 21:00:00 EDT 2024Feb 28 15:03:00 EDT 2024 Problems Active Concerns * Presence of urogenital implants* Code: * Start Date: WedFeb 27 00:00:00 EDT 2024 * End Date: * Text: * Cerebral cysts* Code: * Start Date: WedFeb 27 00:00:00 EDT 2024 * End Date: * Text: * Pressure ulcer of sacral region, unspecified stage* Code: * Start Date: WedFeb 27 00:00:00 EDT 2024 * End Date: WedMar 01 00:00:00 EDT 2024 * Text: * Perineural cyst* Code: * Start Date: WedFeb 27 00:00:00 EDT 2024 * End Date: * Text: * Presence of neurostimulator* Code: * Start Date: WedFeb 27 00:00:00 EDT 2024 * End Date: * Text: * Arthrodesis status* Code: * Start Date: WedFeb 27 00:00:00 EDT 2024 * End Date: * Text: * Encounter for surgical aftercare following surgery on the nervous system* Code: * Start Date: WedFeb 27 00:00:00 EDT 2024 * End Date: * Text: * Neurogenic bowel, not elsewhere classified* Code: * Start Date: WedFeb 27 00:00:00 EDT 2024 * End Date: * Text: * Flaccid neuropathic bladder, not elsewhere classified* Code: * Start Date: WedFeb 27 00:00:00 EDT 2024 * End Date: * Text: * Osteomyelitis of vertebra, sacral and sacrococcygeal region* Code: * Start Date: WedFeb 27 00:00:00 EDT 2024 * End Date: * Text: * Pressure ulcer of sacral region, stage 4* Code: * Start Date: WedFeb 27 00:00:00 EDT 2024 * End Date: * Text: * Personal history of other venous thrombosis and embolism* Code: * Start Date: WedFeb 27 00:00:00 EDT 2024 * End Date: * Text: * Benign prostatic hyperplasia without lower urinary tract symptoms* Code: * Start Date: WedFeb 27 00:00:00 EDT 2024 * End Date: WedMar 05 00:00:00 EDT 2024 * Text: * Chronic kidney disease, stage 3 unspecified* Code: * Start Date: WedFeb 27 00:00:00 EDT 2024 * End Date: * Text: * Intervertebral disc disorders with myelopathy, thoracic region* Code: * Start Date: WedFeb 27 00:00:00 EDT 2024 * End Date: * Text: * Irritable bowel syndrome, unspecified* Code: * Start Date: WedFeb 27 00:00:00 EDT 2024 * End Date: * Text: * Polyneuropathy, unspecified* Code: * Start Date: WedFeb 27 00:00:00 EDT 2024 * End Date: * Text: * Other spondylosis with myelopathy, thoracic region* Code: * Start Date: WedFeb 27 00:00:00 EDT 2024 * End Date: * Text: * Paraplegia, unspecified* Code: * Start Date: WedFeb 27 00:00:00 EDT 2024 * End Date: * Text: * Depression, unspecified* Code: * Start Date: WedFeb 27 00:00:00 EDT 2024 * End Date: * Text: * 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* Code: * Start Date: WedFeb 27 00:00:00 EDT 2024 * End Date: * Text: * FDC (current) use of opiate analgesic* Code: * Start Date: WedFeb 27 00:00:00 EDT 2024 * End Date: * Text: * Pressure ulcer of right heel, unstageable* Code: * Start Date: WedFeb 27 00:00:00 EDT 2024 * End Date: * Text: * Gastro-esophageal reflux disease without esophagitis* Code: * Start Date: WedFeb 27 00:00:00 EDT 2024 * End Date: * Text: * Constipation, unspecified* Code: * Start Date: WedFeb 27 00:00:00 EDT 2024 * End Date: * Text: * Chronic pain syndrome* Code: * Start Date: WedFeb 27 00:00:00 EDT 2024 * End Date: * Text: * Benign prostatic hyperplasia with lower urinary tract symptoms* Code: * Start Date: WedFeb 27 00:00:00 EDT 2024 * End Date: * Text: * Other retention of urine* Code: * Start Date: WedFeb 27 00:00:00 EDT 2024 * End Date: * Text: * Essential (primary) hypertension* Code: * Start Date: WedFeb 27 00:00:00 EDT 2024 * End Date: WedMar 05 00:00:00 EDT 2024 * Text: * Hypertensive chronic kidney disease with stage 1 through stage 4 chronic kidney disease, or unspecified chronic kidney disease* Code: * Start Date: WedFeb 27 00:00:00 EDT 2024 * End Date: * Text: * Hyperlipidemia, unspecified* Code: * Start Date: WedFeb 27 00:00:00 EDT 2024 * End Date: * Text: * Anemia, unspecified* Code: * Start Date: WedFeb 27 00:00:00 EDT 2024 * End Date: * Text: * Urinary tract infection, site not specified* Code: * Start Date: WedApril 11 00:00:00 EDT 2024 * End Date: * Text: * Adhesive capsulitis of left shoulder* Code: * Start Date: WedFeb 27 00:00:00 EDT 2024 * End Date: * Text: * Chronic kidney disease, stage 2 (mild)* Code: * Start Date: WedApr 24 00:00:00 EDT 2024 * End Date: * Text: * Vitamin D deficiency, unspecified* Code: * Start Date: WedFeb 27 00:00:00 EDT 2024 * End Date: * Text: * Deficiency of other specified B group vitamins* Code: * Start Date: WedApr 24 00:00:00 EDT 2024 * End Date: * Text: * Dependence on wheelchair* Code: * Start Date: WedApr 24 00:00:00 EDT 2024 * End Date: * Text: * Weakness* Code: * Start Date: WedFeb 27 00:00:00 EDT 2024 * End Date: * Text: * Pain in left shoulder* Code: * Start Date: WedFeb 27 00:00:00 EDT 2024 * End Date: * Text: * Muscle weakness (generalized)* Code: * Start Date: WedFeb 27 00:00:00 EDT 2024 * End Date: * Text: * Chronic embolism and thrombosis of right popliteal vein* Code: * Start Date: WedFeb 27 00:00:00 EDT 2024 * End Date: * Text: * Infection and inflammatory reaction due to indwelling urethral catheter, subsequent encounter* Code: * Start Date: WedMay 15 00:00:00 EDT 2024 * End Date: * Text: * Personal history of other diseases of the musculoskeletal system and connective tissue* Code: * Start Date: WedDec 06 00:00:00 EST 2024 * End Date: * Text: * Pain in right knee* Code: * Start Date: WedFeb 27 00:00:00 EDT 2024 * End Date: * Text: * Pain in left knee* Code: * Start Date: WedFeb 27 00:00:00 EDT 2024 * End Date: * Text: * Alteration in nutrition/hydration R/T wounds* Code: * Start Date: WedMar 07 00:00:00 EDT 2024 * End Date: * Text: Alteration in nutrition/hydration R/T wounds * Joao Davis's wishes will be followed (Advanced Directive/Code Status).* Code: * Start Date: WedMar 07 00:00:00 EDT 2024 * End Date: * Text: Joao Davis's wishes will be followed (Advanced Directive/Code Status). * Joao Davis will be involved in goal development to the best of his ability.* Code: * Start Date: WedMar 07 00:00:00 EDT 2024 * End Date: * Text: Joao Davis will be involved in goal development to the best of his ability. * Joao Davis has family/friends who are supportive.* Code: * Start Date: WedMar 07 00:00:00 EDT 2024 * End Date: * Text: LSS_Social Services- Ryan has family/friends who are supportive. * LSS_Social Services- Ryan's mobility level is different than prior level due to current medical condition.* Code: * Start Date: WedMar 07 00:00:00 EDT 2024 * End Date: * Text: LSS_Social Services- Ryan's mobility level is different than prior level due to current medical condition. * LSS_Social Services- Ryan will be involved in discharge planning.* Code: * Start Date: WedMar 07 00:00:00 EDT 2024 * End Date: * Text: LSS_Social Services- Ryan will be involved in discharge planning. * LSS_Foley Catheter - Ryan has indwelling catheter.* Code: * Start Date: WedMar 09 00:00:00 EDT 2024 * End Date: * Text: LSS_Foley Catheter - Ryan has indwelling catheter. * LSS_Psychotropic Drug Use - Use of psychotropic drug use places Ryan at risk for drug-related sideeffects. He is on Cymbalta for neuropathy pain.* Code: * Start Date: WedMar 09 00:00:00 EDT 2024 * End Date: * Text: LSS_Psychotropic Drug Use - Use of psychotropic drug use places Ryan at risk for drug-related side effects. He is on Cymbalta for neuropathy pain. * LSS_Falls - Ryan is at risk for falls/injury as evidenced by: history of falls, cognitive status/behavior, vision status, continence, mobility, balance.* Code: * Start Date: WedMar 09 00:00:00 EDT 2024 * End Date: * Text: LSS_Falls - Ryan is at risk for falls/injury as evidenced by: history of falls, cognitive status/behavior, vision status, continence, mobility, balance. * LSS_Pain - Ryan is experiencing pain or is at high risk for pain.* Code: * Start Date: WedMar 09 00:00:00 EDT 2024 * End Date: * Text: LSS_Pain - Ryan is experiencing pain or is at high risk for pain. * LSS_Skin Integrity - (Potential Alteration of)- Ryan is at risk for developing impaired skin integrity.* Code: * Start Date: WedMar 09 00:00:00 EDT 2024 * End Date: * Text: LSS_Skin Integrity - (Potential Alteration of)- Ryan is at risk for developing impaired skinintegrity. * LSS_ADLs - Ryan has ADL selfcare deficit related to decreased mobility and muscle weakness* Code: * Start Date: WedMar 09 00:00:00 EDT 2024 * End Date: * Text: LSS_ADLs - Ryan has ADL selfcare deficit related to decreased mobility and muscle weakness * H0400.2 Bowel Continence: Ryan is frequently incontinent of bowel movement. (16)* Code: * Start Date: WedMay 29 00:00:00 EDT 2024 * End Date: * Text: H0400.2 Bowel Continence: Ryan is frequently incontinent of bowel movement. (16) * Nursing - Nutrition Status* Code: * Start Date: WedMay 29:00:00 EDT 2024 * End Date: * Text: Nursing - Nutrition Status * LSS_Enhanced Barrier Precautions- Ryan is on enhanced barrier precautions related to (X ) Open Wound, (X ) Urinary Catheter , ( ) Central Line, ( ) Dialysis Catheter, ( ) Gastrostomy tube* Code: * Start Date: WedMay 29 00:00:00 EDT 2024 * End Date: * Text: LSS_Enhanced Barrier Precautions- Ryan is on enhanced barrier precautions related to (X ) Open Wound, (X ) Urinary Catheter , ( ) Central Line, ( ) Dialysis Catheter, ( ) Gastrostomy tube * Nursing - Wound Care and Management* Code: * Start Date: WedMay 29 00:00:00 EDT 2024 * End Date: * Text: Nursing - Wound Care and Management * Ryan uses a bed assistive device.* Code: * Start Date: WedMay 29 00:00:00 EDT 2024 * End Date: * Text: Ryan uses a bed assistive device. * LSS_Activities - Ryan's quality of life is better when he is able to do things that are most important to him. Ryan enjoys bingo, trivia, parties/socials, live entertainment and socializing with others. Ryan also enjoys independent leisure activities such as lunch at the [employer], visiting with his and spending time in his room.* Code: * Start Date: WedJun 08 00:00:00 EDT 2024 * End Date: * Text: LSS_Activities - Ryan's quality of life is better when he is able to do things that are mostimportant to him. Ryna enjoys bingo, trivia, parties/socials, live entertainment and socializing with others. Ryan also enjoys independent leisure activities such as lunch at the [employer], visiting with his and spending time in his room. * LSS_Restorative - Ryan is at risk for decrease in function as evidenced by: (SPECIFY)* Code: * Start Date: WedJun 14 00:00:00 EDT 2024 * End Date: * Text: RADHA_Restorative Radha Davis is at risk for decrease in function as evidenced by: (SPECIFY) Vital Signs Vital Sign Measurement Date Systolic Blood Pressure 139.00 mm[Hg] WedJun 26 08:49:31 EDT 2024 Diastolic Blood Pressure 69.00 mm[Hg] WedJun 26 08:49:31 EDT 2024 Pulse Oximetry 97.00 % WedJun 26 08:49 :31 EDT 2024 Heart Rate 87.00 /min WedJun 26 08:49 :31 EDT 2024 Systolic Blood Pressure 97.00 mm[Hg] WedJun 25 08:33:13 EDT 2024 Diastolic Blood Pressure 61.00 mm[Hg] WedJun 25 08:33:13 EDT 2024 Pulse Oximetry 94.00 % WedJun 25 08:33 :13 EDT 2024 Heart Rate 83.00 /min WedJun 25 08:33 :13 EDT 2024 Systolic Blood Pressure 128.00 mm[Hg] WedJun 23 08:12:05 EDT 2024 Diastolic Blood Pressure 75.00 mm[Hg] WedJun 23 08:12:05 EDT 2024 Heart Rate 64.00 /min WedJun 23 08:12 :05 EDT 2024 Systolic Blood Pressure 139.00 mm[Hg] WedJun 21 07:44:56 EDT 2024 Diastolic Blood Pressure 78.00 mm[Hg] WedJun 21 07:44:56 EDT 2024 Pulse Oximetry 96.00 % WedJun 21 07:44 :56 EDT 2024 Heart Rate 70.00 /min WedJun 21 07:44 :56 EDT 2024 Systolic Blood Pressure 123.00 mm[Hg] WedJun 19 08:12:12 EDT 2024 Diastolic Blood Pressure 74.00 mm[Hg] WedJun 19 08:12:12 EDT 2024 Heart Rate 70.00 /min WedJun 19 08:12 :12 EDT 2024 Body weight 198.00 [lb_av] WedJun 18 16:23 :46 EDT 2024 Systolic Blood Pressure 114.00 mm[Hg] WedJun 18 07:41:31 EDT 2024 Diastolic Blood Pressure 60.00 mm[Hg] WedJun 18 07:41:31 EDT 2024 Pulse Oximetry 95.00 % WedJun 18 07:41 :31 EDT 2024 Heart Rate 66.00 /min WedJun 18 07:41 :31 EDT 2024 Systolic Blood Pressure 125.00 mm[Hg] WedJun 17 08:25:39 EDT 2024 Diastolic Blood Pressure 68.00 mm[Hg] WedJun 17 08:25:39 EDT 2024 Pulse Oximetry 95.00 % WedJun 17 08:25 :39 EDT 2024 Heart Rate 64.00 /min WedJun 17 08:25 :39 EDT 2024 Systolic Blood Pressure 101.00 mm[Hg] WedJun 15 07:33:44 EDT 2024 Diastolic Blood Pressure 53.00 mm[Hg] WedJun 15 07:33:44 EDT 2024 Pulse Oximetry 94.00 % WedJun 15 07:33 :44 EDT 2024 Heart Rate 68.00 /min WedJun 15 07:33 :44 EDT 2024 Body weight 200.20 [lb_av] WedJun 11 15:16 :09 EDT 2024 Systolic Blood Pressure 108.00 mm[Hg] WedJun 11 08:15:49 EDT 2024 Diastolic Blood Pressure 64.00 mm[Hg] WedJun 11 08:15:49 EDT 2024 Pulse Oximetry 94.00 % WedJun 11 08:15 :49 EDT 2024 Heart Rate 69.00 /min WedJun 11 08:15 :49 EDT 2024 Body weight 200.20 [lb_av] WedJun 10 13:55 :55 EDT 2024 Systolic Blood Pressure 108.00 mm[Hg] WedJun 09 07:53:35 EDT 2024 Diastolic Blood Pressure 65.00 mm[Hg] WedJun 09 07:53:35 EDT 2024 Heart Rate 78.00 /min WedJun 09 07:53 :35 EDT 5 Body weight 197.60 [lb_av] WedJun 01 10:47 :59 EDT 2024 Systolic Blood Pressure 128.00 mm[Hg] WedMay 30 07:21:56 EDT 2024 Diastolic Blood Pressure 70.00 mm[Hg] WedMay 30 07:21:56 EDT 2024 Pulse Oximetry 95.00 % WedMay 30 07:21 :56 EDT 2024 Heart Rate 65.00 /min WedMay 30 07:21 :56 EDT 2024 Body temperature 98.00 [degF] WedMay 30 07:2 1:56 EDT 2024 Respiratory rate 12.00 /min WedMay 30 07:2 1:56 EDT 2024 Systolic Blood Pressure 113.00 mm[Hg] WedMay 29 08:03:47 EDT 2024 Diastolic Blood Pressure 67.00 mm[Hg] WedMay 29 08:03:47 EDT 2024 Pulse Oximetry 95.00 % WedMay 29 08:03 :47 EDT 2024 Heart Rate 69.00 /min WedMay 29 08:03 :47 EDT 2024 Systolic Blood Pressure 130.00 mm[Hg] WedMay 27 07:17:35 EDT 2024 Diastolic Blood Pressure 74.00 mm[Hg] WedMay 27 07:17:35 EDT 2024 Heart Rate 74.00 /min WedMay 27 07:17 :35 EDT 2024 Systolic Blood Pressure 117.00 mm[Hg] WedMay 25 08:18:04 EDT 2024 Diastolic Blood Pressure 68.00 mm[Hg] WedMay 25 08:18:04 EDT 2024 Heart Rate 66.00 /min WedMay 25 08:18 :04 EDT 2024 Systolic Blood Pressure 123.00 mm[Hg] WedMay 24 08:39:14 EDT 2024 Diastolic Blood Pressure 69.00 mm[Hg] WedMay 24 08:39:14 EDT 2024 Pulse Oximetry 97.00 % WedMay 24 08:39 :14 EDT 2024 Heart Rate 72.00 /min WedMay 24 08:39 :14 EDT 2024 Systolic Blood Pressure 123.00 mm[Hg] WedMay 24 08:38:59 EDT 2024 Diastolic Blood Pressure 69.00 mm[Hg] [facility] May 24 08:38:59 EDT 2024 Pulse Oximetry 97.00 % WedMay 24 08:38 :59 EDT 2024 Heart Rate 72.00 /min WedMay 24 08:38 :59 EDT 2024 Systolic Blood Pressure 124.00 mm[Hg] WedMay 23 08:26:28 EDT 2024 Diastolic Blood Pressure 66.00 mm[Hg] WedMay 23 08:26:28 EDT 2024 Pulse Oximetry 95.00 % WedMay 23 08:26 :28 EDT 2024 Heart Rate 68.00 /min WedMay 23 08:26 :28 EDT 2024 Body weight 194.60 [lb_av] WedMay 21 12:20 :55 EDT 2024 Systolic Blood Pressure 120.00 mm[Hg] WedMay 19 07:54:30 EDT 2024 Diastolic Blood Pressure 70.00 mm[Hg] WedMay 19 07:54:30 EDT 2024 Pulse Oximetry 97.00 % WedMay 19 07:54 :30 EDT 2024 Heart Rate 65.00 /min WedMay 19 07:54 :30 EDT 2024 Systolic Blood Pressure 149.00 mm[Hg] WedMay 18 07:56:53 EDT 2024 Diastolic Blood Pressure 87.00 mm[Hg] WedMay 18 07:56:53 EDT 2024 Pulse Oximetry 94.00 % WedMay 18 07:56 :53 EDT 2024 Heart Rate 71.00 /min WedMay 18 07:56 :53 EDT 2024 Systolic Blood Pressure 137.00 mm[Hg] WedMay 16 08:44:14 EDT 2024 Diastolic Blood Pressure 71.00 mm[Hg] WedMay 16 08:44:14 EDT 2024 Pulse Oximetry 95.00 % WedMay 16 08:44 :14 EDT 2024 Heart Rate 73.00 /min WedMay 16 08:44 :14 EDT 2024 Body temperature 98.30 [degF] WedMay 16 08:4 4:14 EDT 2024 Respiratory rate 18.00 /min WedMay 16 08:4 4:14 EDT 2024 Systolic Blood Pressure 96.00 mm[Hg] WedMay 15 07:49:17 EDT 2024 Diastolic Blood Pressure 49.00 mm[Hg] WedMay 15 07:49:17 EDT 2024 Pulse Oximetry 94.00 % WedMay 15 07:49 :17 EDT 2024 Heart Rate 68.00 /min WedMay 15 07:49 :17 EDT 2024 Systolic Blood Pressure 139.00 mm[Hg] WedMay 14 07:51:12 EDT 2024 Diastolic Blood Pressure 75.00 mm[Hg] WedMay 14 07:51:12 EDT 2024 Pulse Oximetry 94.00 % WedMay 14 07:51 :12 EDT 2024 Heart Rate 70.00 /min WedMay 14 07:51 :12 EDT 2024 Systolic Blood Pressure 101.00 mm[Hg] [place] May 13 07:58:21 EDT 2024 Diastolic Blood Pressure 61.00 mm[Hg] [place] May 13 07:58:21 EDT 2024 Heart Rate 72.00 /min [facility] 07:58 :21 EDT 2024 Systolic Blood Pressure 114.00 mm[Hg] [facility] 07:36:16 EDT 2024 Diastolic Blood Pressure 56.00 mm[Hg] [facility] 07:36:16 EDT 2024 Pulse Oximetry 94.00 % [facility] May 10 07:36 :16 EDT 2024 Heart Rate 69.00 /min [facility] 07:36 :16 EDT 2024 Body weight 201.20 [lb_av] [facility] Apr 16 14:40 :07 EDT 2024 Systolic Blood Pressure 131.00 mm[Hg] Wed 16 10:11:45 EDT 2024 Diastolic Blood Pressure 65.00 mm[Hg] Wed 16 10:11:45 EDT 2024 Heart Rate 64.00 /min Wed 16 10:11 :45 EDT 2024 Systolic Blood Pressure 122.00 mm[Hg] [facility] Vishal 14 08:42:18 EDT 2024 Diastolic Blood Pressure 59.00 mm[Hg] [facility] 14 08:42:18 EDT 2024 Heart Rate 65.00 /min [facility] 14 08:42 :18 EDT 2024 Systolic Blood Pressure 131.00 mm[Hg] WedMay 04 23:33:50 EDT 2024 Diastolic Blood Pressure 58.00 mm[Hg] WedMay 04 23:33:50 EDT 2024 Pulse Oximetry 96.00 % WedMay 04 23:33 :50 EDT 2024 Heart Rate 63.00 /min WedMay 04 23:33 :50 EDT 2024 Body temperature 97.80 [degF] Wed 13 23:3 3:50 EDT 2024 Respiratory rate 18.00 /min Wed 13 23:3 3:50 EDT 2024 Systolic Blood Pressure 126.00 mm[Hg] Wed 13 15:45:56 EDT 2024 Diastolic Blood Pressure 56.00 mm[Hg] Wed 13 15:45:56 EDT 2024 Pulse Oximetry 96.00 % Wed 13 15:45 :56 EDT 2024 Heart Rate 61.00 /min Wed 13 15:45 :56 EDT 2024 Body temperature 97.80 [degF] Wed 13 15:4 5:56 EDT 2024 Respiratory rate 16.00 /min Wed 13 15:4 5:56 EDT 2024 Systolic Blood Pressure 136.00 mm[Hg] Wed 12 20:41:22 EDT 2024 Diastolic Blood Pressure 68.00 mm[Hg] Wed 12 20:41:22 EDT 2024 Pulse Oximetry 98.00 % Wed 12 20:41 :22 EDT 2024 Heart Rate 67.00 /min Wed 12 20:41 :22 EDT 2024 Body temperature 98.10 [degF] Wed 12 20:4 1:22 EDT 2024 Respiratory rate 18.00 /min Wed 12 20:4 1:22 EDT 2024 Systolic Blood Pressure 141.00 mm[Hg] Wed 12 15:33:12 EDT 2024 Diastolic Blood Pressure 67.00 mm[Hg] Wed 12 15:33:12 EDT 2024 Pulse Oximetry 95.00 % Wed 12 15:33 :12 EDT 2024 Heart Rate 67.00 /min Wed 12 15:33 :12 EDT 2024 Body temperature 97.10 [degF] Wed 12 15:3 3:12 EDT 2024 Respiratory rate 20.00 /min Wed 12 15:3 3:12 EDT 2024 Systolic Blood Pressure 132.00 mm[Hg] Wed 12 06:08:06 EDT 2024 Diastolic Blood Pressure 76.00 mm[Hg] Wed 12 06:08:06 EDT 2024 Pulse Oximetry 96.00 % Wed 12 06:08 :06 EDT 2024 Heart Rate 75.00 /min WedMay 03 06:08 :06 EDT 2024 Body temperature 98.50 [degF] WedMay 03 06:0 8:06 EDT 2024 Respiratory rate 16.00 /min WedMay 03 06:0 8:06 EDT 2024 Systolic Blood Pressure 146.00 mm[Hg] WedMay 02 14:22:29 EDT 2024 Diastolic Blood Pressure 77.00 mm[Hg] WedMay 02 14:22:29 EDT 2024 Pulse Oximetry 98.00 % WedMay 02 14:22 :29 EDT 2024 Heart Rate 64.00 /min WedMay 02 14:22 :29 EDT 2024 Body temperature 97.00 [degF] WedMay 02 14:2 2:29 EDT 2024 Respiratory rate 18.00 /min WedMay 02 14:2 2:29 EDT 2024 Systolic Blood Pressure 116.00 mm[Hg] WedMay 02 02:34:53 EDT 2024 Diastolic Blood Pressure 62.00 mm[Hg] WedMay 02 02:34:53 EDT 2024 Pulse Oximetry 96.00 % WedMay 02 02:34 :53 EDT 2024 Heart Rate 85.00 /min WedMay 02 02:34 :53 EDT 2024 Body temperature 98.50 [degF] WedMay 02 02:3 4:53 EDT 2024 Respiratory rate 18.00 /min WedMay 02 02:3 4:53 EDT 2024 Systolic Blood Pressure 107.00 mm[Hg] WedMay 01 10:09:24 EDT 2024 Diastolic Blood Pressure 51.00 mm[Hg] WedMay 01 10:09:24 EDT 2024 Pulse Oximetry 92.00 % WedMay 01 10:09 :24 EDT 2024 Heart Rate 64.00 /min WedMay 01 10:09 :24 EDT 2024 Body temperature 98.40 [degF] WedMay 01 10:0 9:24 EDT 2024 Respiratory rate 20.00 /min WedMay 01 10:0 9:24 EDT 2024 Systolic Blood Pressure 107.00 mm[Hg] WedMay 01 08:04:46 EDT 2024 Diastolic Blood Pressure 51.00 mm[Hg] WedMay 01 08:04:46 EDT 2024 Pulse Oximetry 92.00 % WedMay 01 08:04 :46 EDT 2024 Heart Rate 64.00 /min WedMay 01 08:04 :46 EDT 5 Systolic Blood Pressure 112.00 mm[Hg] WedApr 30 20:22:35 EDT 2024 Diastolic Blood Pressure 64.00 mm[Hg] WedApr 30 20:22:35 EDT 2024 Pulse Oximetry 97.00 % WedApr 30 20:22 :35 EDT 2024 Heart Rate 68.00 /min WedApr 30 20:22 :35 EDT 2024 Body temperature 97.60 [degF] WedApr 30 20:2 2:35 EDT 2024 Respiratory rate 18.00 /min WedApr 30 20:2 2:35 EDT 2024 Systolic Blood Pressure 103.00 mm[Hg] WedApr 30 15:04:30 EDT 2024 Diastolic Blood Pressure 60.00 mm[Hg] WedApr 30 15:04:30 EDT 2024 Pulse Oximetry 97.00 % WedApr 30 15:04 :30 EDT 2024 Heart Rate 66.00 /min WedApr 30 15:04 :30 EDT 2024 Body temperature 97.30 [degF] WedApr 30 15:0 4:30 EDT 2024 Respiratory rate 20.00 /min WedApr 30 15:0 4:30 EDT 2024 Systolic Blood Pressure 103.00 mm[Hg] WedApr 30 07:53:56 EDT 2024 Diastolic Blood Pressure 60.00 mm[Hg] WedApr 30 07:53:56 EDT 2024 Pulse Oximetry 97.00 % WedApr 30 07:53 :56 EDT 2024 Heart Rate 66.00 /min WedApr 30 07:53 :56 EDT 2024 Systolic Blood Pressure 109.00 mm[Hg] WedApr 29 20:03:04 EDT 2024 Diastolic Blood Pressure 66.00 mm[Hg] WedApr 29 20:03:04 EDT 2024 Pulse Oximetry 99.00 % WedApr 29 20:03 :04 EDT 2024 Heart Rate 69.00 /min WedApr 29 20:03 :04 EDT 2024 Body temperature 97.80 [degF] WedApr 29 20:0 3:04 EDT 2024 Respiratory rate 18.00 /min WedApr 29 20:0 3:04 EDT 2024 Systolic Blood Pressure 104.00 mm[Hg] WedApr 29 12:22:15 EDT 2025 Diastolic Blood Pressure 53.00 mm[Hg] Wed 08 12:22:15 EDT 2024 Pulse Oximetry 97.00 % WedApr 29 12:22 :15 EDT 2024 Heart Rate 74.00 /min WedApr 29 12:22 :15 EDT 2024 Body temperature 97.80 [degF] WedApr 29 12:2 2:15 EDT 2024 Respiratory rate 16.00 /min [place] Apr 29 12:2 2:15 EDT 2024 Systolic Blood Pressure 105.00 mm[Hg] [facility] Apr 07 21:35:48 EDT 2024 Diastolic Blood Pressure 53.00 mm[Hg] [facility] Apr 07 21:35:48 EDT 2024 Pulse Oximetry 94.00 % [facility] Apr 07 21:35 :48 EDT 2024 Heart Rate 66.00 /min [facility] Apr 07 21:35 :48 EDT 2024 Body temperature 97.80 [degF] [facility] Apr 07 21:3 5:48 EDT 2024 Respiratory rate 18.00 /min [facility] Apr 07 21:3 5:48 EDT 2024 Systolic Blood Pressure 116.00 mm[Hg] [facility] Apr 07 10:24:31 EDT 2024 Diastolic Blood Pressure 66.00 mm[Hg] [facility] Apr 07 10:24:31 EDT 2024 Pulse Oximetry 97.00 % [facility] Apr 07 10:24 :31 EDT 2024 Heart Rate 67.00 /min [facility] Apr 07 10:24 :31 EDT 2024 Body temperature 97.60 [degF] [facility] Apr 07 10:2 4:31 EDT 2024 Respiratory rate 18.00 /min [facility] Apr 07 10:2 4:31 EDT 2024 Systolic Blood Pressure 131.00 mm[Hg] Wed 07 01:39:37 EDT 2024 Diastolic Blood Pressure 74.00 mm[Hg] Wed 07 01:39:37 EDT 2024 Pulse Oximetry 95.00 % [facility] Apr 07 01:39 :37 EDT 2024 Heart Rate 84.00 /min [facility] Apr 07 01:39 :37 EDT 2024 Body temperature 98.00 [degF] [facility] Apr 07 01:3 9:37 EDT 2024 Respiratory rate 18.00 /min [facility] Apr 07 01:3 9:37 EDT 2024 Systolic Blood Pressure 115.00 mm[Hg] Wed 06 14:01:00 EDT 2024 Diastolic Blood Pressure 71.00 mm[Hg] WedApr 27 14:01:00 EDT 2024 Pulse Oximetry 94.00 % WedApr 27 14:01 :00 EDT 2024 Heart Rate 62.00 /min WedApr 27 14:01 :00 EDT 2024 Body temperature 97.00 [degF] WedApr 27 14:0 1:00 EDT 2024 Respiratory rate 20.00 /min WedApr 27 14:0 1:00 EDT 2024 Systolic Blood Pressure 126.00 mm[Hg] WedApr 27 06:13:40 EDT 2024 Diastolic Blood Pressure 78.00 mm[Hg] WedApr 27 06:13:40 EDT 2024 Pulse Oximetry 96.00 % WedApr 27 06:13 :40 EDT 2024 Heart Rate 88.00 /min WedApr 27 06:13 :40 EDT 2024 Body temperature 97.80 [degF] WedApr 27 06:1 3:40 EDT 2024 Respiratory rate 20.00 /min WedApr 27 06:1 3:40 EDT 2024 Systolic Blood Pressure 108.00 mm[Hg] WedApr 26 14:17:09 EDT 2024 Diastolic Blood Pressure 63.00 mm[Hg] WedApr 26 14:17:09 EDT 2024 Pulse Oximetry 92.00 % WedApr 26 14:17 :09 EDT 2024 Heart Rate 67.00 /min WedApr 26 14:17 :09 EDT 2024 Body temperature 98.00 [degF] WedApr 26 14:1 7:09 EDT 2024 Respiratory rate 16.00 /min Wed 05 14:1 7:09 EDT 2024 Systolic Blood Pressure 108.00 mm[Hg] Wed 05 07:32:21 EDT 2024 Diastolic Blood Pressure 63.00 mm[Hg] Wed 05 07:32:21 EDT 2024 Pulse Oximetry 92.00 % Wed 05 07:32 :21 EDT 2024 Heart Rate 67.00 /min Wed 05 07:32 :21 EDT 2024 Systolic Blood Pressure 145.00 mm[Hg] WedApr 25 22:37:15 EDT 2024 Diastolic Blood Pressure 71.00 mm[Hg] WedApr 25 22:37:15 EDT 2024 Pulse Oximetry 97.00 % WedApr 25 22:37 :15 EDT 2024 Heart Rate 67.00 /min WedApr 25 22:37 :15 EDT 2024 Body temperature 97.80 [degF] WedApr 25 22:3 7:15 EDT 2024 Respiratory rate 20.00 /min WedApr 25 22:3 7:15 EDT 2024 Systolic Blood Pressure 113.00 mm[Hg] WedApr 25 16:07:51 EDT 2024 Diastolic Blood Pressure 71.00 mm[Hg] WedApr 25 16:07:51 EDT 2024 Pulse Oximetry 95.00 % WedApr 25 16:07 :51 EDT 2024 Body weight 208.30 [lb_av] WedApr 25 16:07 :51 EDT 2024 Heart Rate 63.00 /min WedApr 25 16:07 :51 EDT 2024 Body temperature 98.60 [degF] WedApr 25 16:0 7:51 EDT 2024 Respiratory rate 18.00 /min WedApr 25 16:0 7:51 EDT 2024 Systolic Blood Pressure 107.00 mm[Hg] WedApr 25 00:16:39 EDT 2024 Diastolic Blood Pressure 58.00 mm[Hg] WedApr 25 00:16:39 EDT 2024 Pulse Oximetry 96.00 % WedApr 25 00:16 :39 EDT 2024 Heart Rate 60.00 /min WedApr 25 00:16 :39 EDT 2024 Body temperature 97.50 [degF] WedApr 25 00:1 6:39 EDT 2024 Respiratory rate 12.00 /min WedApr 25 00:1 6:39 EDT 2024 Systolic Blood Pressure 124.00 mm[Hg] WedApr 24 18:07:12 EDT 2024 Diastolic Blood Pressure 86.00 mm[Hg] WedApr 24 18:07:12 EDT 2024 Pulse Oximetry 95.00 % WedApr 24 18:07 :12 EDT 2024 Body weight 209.20 [lb_av] WedApr 24 18:07 :12 EDT 2024 Heart Rate 67.00 /min WedApr 24 18:07 :12 EDT 2024 Body temperature 97.80 [degF] WedApr 24 18:0 7:12 EDT 2024 Respiratory rate 16.00 /min WedApr 24 18:0 7:12 EDT 2024 Systolic Blood Pressure 135.00 mm[Hg] WedApr 24 02:19:49 EDT 2024 Diastolic Blood Pressure 86.00 mm[Hg] WedApr 24 02:19:49 EDT 2024 Pulse Oximetry 96.00 % WedApr 24 02:19 :49 EDT 2024 Heart Rate 86.00 /min WedApr 24 02:19 :49 EDT 2024 Body temperature 97.80 [degF] WedApr 24 02:1 9:49 EDT 2024 Respiratory rate 18.00 /min WedApr 24 02:1 9:49 EDT 2024 Systolic Blood Pressure 127.00 mm[Hg] WedApr 23 16:14:17 EDT 2024 Diastolic Blood Pressure 66.00 mm[Hg] WedApr 23 16:14:17 EDT 2024 Pulse Oximetry 92.00 % WedApr 23 16:14 :17 EDT 2024 Body weight 209.40 [lb_av] WedApr 23 16:14 :17 EDT 2024 Heart Rate 63.00 /min WedApr 23 16:14 :17 EDT 2024 Body temperature 97.90 [degF] WedApr 23 16:1 4:17 EDT 2024 Respiratory rate 20.00 /min WedApr 23 16:1 4:17 EDT 2024 Systolic Blood Pressure 119.00 mm[Hg] WedApr 23 02:44:33 EDT 2024 Diastolic Blood Pressure 74.00 mm[Hg] WedApr 23 02:44:33 EDT 2024 Pulse Oximetry 95.00 % WedApr 23 02:44 :33 EDT 2024 Heart Rate 78.00 /min WedApr 23 02:44 :33 EDT 2024 Body temperature 97.50 [degF] WedApr 23 02:4 4:33 EDT 2024 Respiratory rate 16.00 /min WedApr 23 02:4 4:33 EDT 2024 Systolic Blood Pressure 111.00 mm[Hg] WedApr 22 16:03:21 EDT 2024 Diastolic Blood Pressure 51.00 mm[Hg] WedApr 22 16:03:21 EDT 2024 Pulse Oximetry 94.00 % WedApr 22 16:03 :21 EDT 2024 Heart Rate 62.00 /min WedApr 22 16:03 :21 EDT 2024 Body temperature 97.60 [degF] WedApr 22 16:0 3:21 EDT 2024 Respiratory rate 20.00 /min WedApr 22 16:0 3:21 EDT 2024 Systolic Blood Pressure 136.00 mm[Hg] WedApr 22 00:11:58 EDT 2024 Diastolic Blood Pressure 74.00 mm[Hg] WedApr 22 00:11:58 EDT 2024 Pulse Oximetry 97.00 % WedApr 22 00:11 :58 EDT 2024 Heart Rate 69.00 /min WedApr 22 00:11 :58 EDT 2024 Body temperature 98.30 [degF] WedApr 22 00:1 1:58 EDT 2024 Respiratory rate 18.00 /min WedApr 22 00:1 1:58 EDT 2024 Systolic Blood Pressure 106.00 mm[Hg] WedApril 21 17:27:34 EDT 2024 Diastolic Blood Pressure 47.00 mm[Hg] WedApril 21 17:27:34 EDT 2024 Pulse Oximetry 97.00 % WedApril 21 17:27 :34 EDT 2024 Heart Rate 64.00 /min WedApril 21 17:27 :34 EDT 2024 Body temperature 97.60 [degF] WedApril 21 17:2 7:34 EDT 2024 Respiratory rate 20.00 /min WedApril 21 17:2 7:34 EDT 2024 Systolic Blood Pressure 102.00 mm[Hg] WedApril 20 20:31:37 EDT 2024 Diastolic Blood Pressure 52.00 mm[Hg] WedApril 20 20:31:37 EDT 2024 Pulse Oximetry 96.00 % WedApril 20 20:31 :37 EDT 2024 Heart Rate 97.00 /min WedApril 20 20:31 :37 EDT 2024 Body temperature 98.30 [degF] WedApril 20 20:3 1:37 EDT 2024 Respiratory rate 18.00 /min WedApril 20 20:3 1:37 EDT 2024 Systolic Blood Pressure 117.00 mm[Hg] WedApril 20 16:57:04 EDT 2024 Diastolic Blood Pressure 68.00 mm[Hg] WedApril 20 16:57:04 EDT 2024 Pulse Oximetry 97.00 % WedApril 20 16:57 :04 EDT 2024 Heart Rate 70.00 /min WedApril 20 16:57 :04 EDT 2024 Body temperature 97.60 [degF] WedApril 20 16:5 7:04 EDT 2024 Respiratory rate 20.00 /min WedApril 20 16:5 7:04 EDT 2024 Systolic Blood Pressure 124.00 mm[Hg] WedApril 20 00:15:07 EDT 2024 Diastolic Blood Pressure 78.00 mm[Hg] WedApril 20 00:15:07 EDT 2024 Pulse Oximetry 96.00 % WedApril 20 00:15 :07 EDT 2024 Heart Rate 68.00 /min WedApril 20 00:15 :07 EDT 2024 Body temperature 98.30 [degF] WedApril 20 00:1 5:07 EDT 2024 Respiratory rate 18.00 /min WedApril 20 00:1 5:07 EDT 2024 Systolic Blood Pressure 120.00 mm[Hg] WedApril 19 16:03:18 EDT 2024 Diastolic Blood Pressure 70.00 mm[Hg] WedApril 19 16:03:18 EDT 2024 Pulse Oximetry 96.00 % WedApril 19 16:03 :18 EDT 2024 Heart Rate 63.00 /min WedApril 19 16:03 :18 EDT 2024 Body temperature 97.70 [degF] WedApril 19 16:0 3:18 EDT 2024 Respiratory rate 16.00 /min WedApril 19 16:0 3:18 EDT 2024 Systolic Blood Pressure 135.00 mm[Hg] WedApril 19 01:19:10 EDT 2024 Diastolic Blood Pressure 77.00 mm[Hg] WedApril 19 01:19:10 EDT 2024 Pulse Oximetry 96.00 % WedApril 19 01:19 :10 EDT 2024 Heart Rate 85.00 /min WedApril 19 01:19 :10 EDT 2024 Body temperature 97.00 [degF] WedApril 19 01:1 9:10 EDT 2024 Respiratory rate 18.00 /min WedApril 19 01:1 9:10 EDT 2024 Systolic Blood Pressure 128.00 mm[Hg] WedApril 18 16:20:53 EDT 2024 Diastolic Blood Pressure 83.00 mm[Hg] WedApril 18 16:20:53 EDT 2024 Pulse Oximetry 99.00 % WedApril 18 16:20 :53 EDT 2024 Heart Rate 66.00 /min WedApril 18 16:20 :53 EDT 2024 Body temperature 97.10 [degF] WedApril 18 16:2 0:53 EDT 2024 Respiratory rate 20.00 /min WedApril 18 16:2 0:53 EDT 2024 Systolic Blood Pressure 135.00 mm[Hg] WedApril 17 22:48:54 EDT 2024 Diastolic Blood Pressure 74.00 mm[Hg] WedApril 17 22:48:54 EDT 2024 Pulse Oximetry 95.00 % WedApril 17 22:48 :54 EDT 2024 Heart Rate 75.00 /min WedApril 17 22:48 :54 EDT 2024 Body temperature 98.60 [degF] WedApril 17 22:4 8:54 EDT 2024 Respiratory rate 16.00 /min WedApril 17 22:4 8:54 EDT 2024 Body weight 192.20 [lb_av] WedApril 17 21:18 :38 EDT 2024 Systolic Blood Pressure 127.00 mm[Hg] WedApril 17 21:10:25 EDT 2024 Diastolic Blood Pressure 68.00 mm[Hg] WedApril 17 21:10:25 EDT 2024 Pulse Oximetry 96.00 % WedApril 17 21:10 :25 EDT 2024 Heart Rate 70.00 /min WedApril 17 21:10 :25 EDT 2024 Body temperature 97.60 [degF] WedApril 17 21:1 0:25 EDT 2024 Respiratory rate 20.00 /min WedApril 17 21:1 0:25 EDT 2024 Systolic Blood Pressure 118.00 mm[Hg] WedApril 16 22:34:43 EDT 2024 Diastolic Blood Pressure 58.00 mm[Hg] WedApril 16 22:34:43 EDT 2024 Pulse Oximetry 63.00 % WedApril 16 22:34 :43 EDT 2024 Heart Rate 94.00 /min WedApril 16 22:34 :43 EDT 2024 Body temperature 97.30 [degF] WedApril 16 22:3 4:43 EDT 2024 Respiratory rate 18.00 /min WedApril 16 22:3 4:43 EDT 2024 Body weight 197.60 [lb_av] WedApril 16 13:16 :24 EDT 2024 Systolic Blood Pressure 117.00 mm[Hg] WedApril 16 13:08:47 EDT 2024 Diastolic Blood Pressure 59.00 mm[Hg] WedApril 16 13:08:47 EDT 2024 Pulse Oximetry 96.00 % WedApril 16 13:08 :47 EDT 2024 Heart Rate 69.00 /min WedApril 16 13:08 :47 EDT 2024 Body temperature 97.80 [degF] WedApril 16 13:0 8:47 EDT 2024 Respiratory rate 18.00 /min WedApril 16 13:0 8:47 EDT 2024 Body weight 197.60 [lb_av] WedApril 16 12:43 :36 EDT 2024 Systolic Blood Pressure 112.00 mm[Hg] WedApril 16 03:14:54 EDT 2024 Diastolic Blood Pressure 62.00 mm[Hg] WedApril 16 03:14:54 EDT 2024 Pulse Oximetry 95.00 % WedApril 16 03:14 :54 EDT 2024 Heart Rate 65.00 /min WedApril 16 03:14 :54 EDT 2024 Body temperature 98.30 [degF] WedApril 16 03:1 4:54 EDT 2024 Respiratory rate 18.00 /min WedApril 16 03:1 4:54 EDT 2024 Body weight 192.90 [lb_av] WedApril 15 17:21 :57 EDT 2024 Systolic Blood Pressure 101.00 mm[Hg] WedApril 15 12:20:05 EDT 2024 Diastolic Blood Pressure 59.00 mm[Hg] WedApril 15 12:20:05 EDT 2024 Pulse Oximetry 94.00 % WedApril 15 12:20 :05 EDT 2024 Heart Rate 61.00 /min WedApril 15 12:20 :05 ED2024 Body temperature 98.10 [degF] WedApril 15 12:2 0:05 ED2024 Respiratory rate 18.00 /min WedApril 15 12:2 0:05 EDT 2024 Systolic Blood Pressure 134.00 mm[Hg] WedApril 14 21:47:30 EDT 2024 Diastolic Blood Pressure 82.00 mm[Hg] WedApril 14 21:47:30 EDT 2024 Pulse Oximetry 97.00 % WedApril 14 21:47 :30 EDT 2024 Heart Rate 86.00 /min WedApril 14 21:47 :30 EDT 2024 Body temperature 97.80 [degF] WedApril 14 21:4 7:30 EDT 2024 Respiratory rate 20.00 /min WedApril 14 21:4 7:30 EDT 2024 Systolic Blood Pressure 105.00 mm[Hg] WedApril 14 18:31:08 EDT 2024 Diastolic Blood Pressure 58.00 mm[Hg] WedApril 14 18:31:08 EDT 2024 Pulse Oximetry 95.00 % WedApril 14 18:31 :08 EDT 2024 Body weight 193.80 [lb_av] WedApril 14 18:31 :08 EDT 2024 Heart Rate 64.00 /min WedApril 14 18:31 :08 EDT 2024 Body temperature 96.80 [degF] WedApril 14 18:3 1:08 EDT 2024 Respiratory rate 20.00 /min WedApril 14 18:3 1:08 EDT 2024 Systolic Blood Pressure 146.00 mm[Hg] WedApril 13 21:20:14 EDT 2024 Diastolic Blood Pressure 76.00 mm[Hg] WedApril 13 21:20:14 EDT 2024 Pulse Oximetry 97.00 % WedApril 13 21:20 :14 EDT 2024 Heart Rate 74.00 /min WedApril 13 21:20 :14 EDT 2024 Body temperature 97.80 [degF] WedApril 13 21:2 0:14 EDT 2024 Respiratory rate 18.00 /min WedApril 13 21:2 0:14 EDT 2024 Systolic Blood Pressure 131.00 mm[Hg] WedApril 13 16:36:30 EDT 2024 Diastolic Blood Pressure 72.00 mm[Hg] WedApril 13 16:36:30 EDT 2024 Pulse Oximetry 93.00 % WedApril 13 16:36 :30 EDT 2024 Heart Rate 63.00 /min WedApril 13 16:36 :30 EDT 2024 Body temperature 97.10 [degF] WedApril 13 16:3 6:30 EDT 2024 Respiratory rate 20.00 /min WedApril 13 16:3 6:30 EDT 2024 Systolic Blood Pressure 126.00 mm[Hg] WedApril 13 03:23:36 EDT 2024 Diastolic Blood Pressure 78.00 mm[Hg] WedApril 13 03:23:36 EDT 2024 Pulse Oximetry 96.00 % WedApril 13 03:23 :36 EDT 2024 Heart Rate 88.00 /min WedApril 13 03:23 :36 EDT 2024 Body temperature 97.50 [degF] WedApril 13 03:2 3:36 EDT 2024 Respiratory rate 18.00 /min WedApril 13 03:2 3:36 EDT 2024 Systolic Blood Pressure 118.00 mm[Hg] WedApril 12 15:12:33 EDT 2024 Diastolic Blood Pressure 72.00 mm[Hg] WedApril 12 15:12:33 EDT 2024 Pulse Oximetry 94.00 % WedApril 12 15:12 :33 EDT 2024 Body weight 191.90 [lb_av] WedApril 12 15:12 :33 EDT 2024 Heart Rate 77.00 /min WedApril 12 15:12 :33 EDT 2024 Body temperature 98.10 [degF] WedApril 12 15:1 2:33 EDT 2024 Respiratory rate 18.00 /min WedApril 12 15:1 2:33 EDT 2024 Systolic Blood Pressure 127.00 mm[Hg] WedApril 12 02:42:30 EDT 2024 Diastolic Blood Pressure 66.00 mm[Hg] WedApril 12 02:42:30 EDT 2024 Pulse Oximetry 96.00 % WedApril 12 02:42 :30 EDT 2024 Heart Rate 72.00 /min WedApril 12 02:42 :30 EDT 2024 Body temperature 97.90 [degF] WedApril 12 02:4 2:30 EDT 2024 Respiratory rate 18.00 /min WedApril 12 02:4 2:30 EDT 2024 Body weight 192.60 [lb_av] WedApril 11 17:16 :45 EDT 2024 Systolic Blood Pressure 115.00 mm[Hg] WedApril 11 11:58:31 EDT 2024 Diastolic Blood Pressure 65.00 mm[Hg] WedApril 11 11:58:31 EDT 2024 Pulse Oximetry 92.00 % WedApril 11 11:58 :31 EDT 2024 Heart Rate 78.00 /min WedApril 11 11:58 :31 EDT 2024 Body temperature 98.30 [degF] WedApril 11 11:5 8:31 EDT 2024 Respiratory rate 18.00 /min WedApril 11 11:5 8:31 EDT 2024 Systolic Blood Pressure 154.00 mm[Hg] WedApril 11 00:23:03 EDT 2024 Diastolic Blood Pressure 77.00 mm[Hg] WedApril 11 00:23:03 EDT 2024 Pulse Oximetry 96.00 % WedApril 11 00:23 :03 EDT 2024 Heart Rate 78.00 /min WedApril 11 00:23 :03 EDT 2024 Body temperature 97.80 [degF] WedApril 11 00:2 3:03 EDT 2024 Respiratory rate 18.00 /min WedApril 11 00:2 3:03 EDT 2024 Systolic Blood Pressure 168.00 mm[Hg] WedApril 10 18:52:45 EDT 2024 Diastolic Blood Pressure 84.00 mm[Hg] WedApril 10 18:52:45 EDT 2024 Pulse Oximetry 95.00 % WedApril 10 18:52 :45 EDT 2024 Body weight 192.40 [lb_av] WedApril 10 18:52 :45 EDT 2024 Heart Rate 74.00 /min WedApril 10 18:52 :45 EDT 2024 Body temperature 98.30 [degF] WedApril 10 18:5 2:45 EDT 2024 Respiratory rate 16.00 /min WedApril 10 18:5 2:45 EDT 2024 Systolic Blood Pressure 178.00 mm[Hg] WedApril 09 22:21:06 EDT 2024 Diastolic Blood Pressure 98.00 mm[Hg] WedApril 09 22:21:06 EDT 2024 Pulse Oximetry 96.00 % WedApril 09 22:21 :06 EDT 2024 Heart Rate 72.00 /min WedApril 09 22:21 :06 EDT 2024 Body temperature 98.50 [degF] WedApril 09 22:2 1:06 EDT 2024 Respiratory rate 22.00 /min WedApril 09 22:2 1:06 EDT 2024 Systolic Blood Pressure 92.00 mm[Hg] WedApril 09 15:41:09 EDT 2024 Diastolic Blood Pressure 54.00 mm[Hg] WedApril 09 15:41:09 EDT 2024 Pulse Oximetry 97.00 % WedApril 09 15:41 :09 EDT 2024 Body weight 189.80 [lb_av] WedApril 09 15:41 :09 EDT 2024 Heart Rate 73.00 /min WedApril 09 15:41 :09 EDT 2024 Body temperature 97.00 [degF] WedApril 09 15:4 1:09 EDT 2024 Respiratory rate 20.00 /min WedApril 09 15:4 1:09 EDT 2024 Systolic Blood Pressure 118.00 mm[Hg] WedApril 08 22:26:44 EDT 2024 Diastolic Blood Pressure 70.00 mm[Hg] WedApril 08 22:26:44 EDT 2024 Pulse Oximetry 97.00 % WedApril 08 22:26 :44 EDT 2024 Heart Rate 66.00 /min WedApril 08 22:26 :44 EDT 2024 Body temperature 97.90 [degF] WedApril 08 22:2 6:44 EDT 2024 Respiratory rate 18.00 /min WedApril 08 22:2 6:44 EDT 2024 Body weight 202.40 [lb_av] WedApril 08 17:24 :51 EDT 2024 Systolic Blood Pressure 110.00 mm[Hg] WedApril 08 15:42:55 EDT 2024 Diastolic Blood Pressure 55.00 mm[Hg] WedApril 08 15:42:55 EDT 2024 Pulse Oximetry 93.00 % WedApril 08 15:42 :55 EDT 2024 Heart Rate 71.00 /min WedApril 08 15:42 :55 EDT 2024 Body temperature 98.10 [degF] WedApril 08 15:4 2:55 EDT 2024 Respiratory rate 18.00 /min WedApril 08 15:4 2:55 EDT 2024 Systolic Blood Pressure 111.00 mm[Hg] WedApril 08 00:00:58 EDT 2024 Diastolic Blood Pressure 56.00 mm[Hg] WedApril 08 00:00:58 EDT 2024 Pulse Oximetry 98.00 % WedApril 08 00:00 :58 EDT 2024 Heart Rate 73.00 /min WedApril 08 00:00 :58 EDT 2024 Body temperature 98.00 [degF] WedApril 08 00:0 0:58 EDT 2024 Respiratory rate 16.00 /min WedApril 08 00:0 0:58 EDT 2024 Systolic Blood Pressure 100.00 mm[Hg] WedApril 07 10:40:59 EDT 2024 Diastolic Blood Pressure 49.00 mm[Hg] WedApril 07 10:40:59 EDT 2024 Pulse Oximetry 95.00 % WedApril 07 10:40 :59 EDT 2024 Heart Rate 66.00 /min WedApril 07 10:40 :59 EDT 2024 Body temperature 97.60 [degF] WedApril 07 10:4 0:59 EDT 2024 Respiratory rate 18.00 /min WedApril 07 10:4 0:59 EDT 2024 Systolic Blood Pressure 100.00 mm[Hg] WedApril 07 07:53:17 EDT 2024 Diastolic Blood Pressure 49.00 mm[Hg] WedApril 07 07:53:17 EDT 2024 Pulse Oximetry 95.00 % WedApril 07 07:53 :17 EDT 2024 Heart Rate 66.00 /min WedApril 07 07:53 :17 EDT 2024 Systolic Blood Pressure 111.00 mm[Hg] WedApril 07 06:29:19 EDT 2024 Diastolic Blood Pressure 62.00 mm[Hg] WedApril 07 06:29:19 EDT 2024 Pulse Oximetry 97.00 % WedApril 07 06:29 :19 EDT 2024 Heart Rate 79.00 /min WedApril 07 06:29 :19 EDT 2024 Body temperature 97.60 [degF] WedApril 07 06:2 9:19 EDT 2024 Respiratory rate 18.00 /min WedApril 07 06:2 9:19 EDT 2024 Systolic Blood Pressure 112.00 mm[Hg] WedApril 06 12:08:46 EDT 2024 Diastolic Blood Pressure 60.00 mm[Hg] WedApril 06 12:08:46 EDT 2024 Pulse Oximetry 95.00 % WedApril 06 12:08 :46 EDT 2024 Body weight 201.20 [lb_av] WedApril 06 12:08 :46 EDT 2024 Heart Rate 68.00 /min WedApril 06 12:08 :46 EDT 2024 Body temperature 98.30 [degF] WedApril 06 12:0 8:46 EDT 2024 Respiratory rate 16.00 /min WedApril 06 12:0 8:46 EDT 2024 Systolic Blood Pressure 129.00 mm[Hg] WedApril 06 04:26:17 EDT 2024 Diastolic Blood Pressure 72.00 mm[Hg] WedApril 06 04:26:17 EDT 2024 Pulse Oximetry 96.00 % WedApril 06 04:26 :17 EDT 2024 Heart Rate 78.00 /min WedApril 06 04:26 :17 EDT 2024 Body temperature 97.80 [degF] WedApril 06 04:2 6:17 EDT 2024 Respiratory rate 16.00 /min WedApril 06 04:2 6:17 EDT 2024 Systolic Blood Pressure 134.00 mm[Hg] WedApril 05 15:53:25 EDT 2024 Diastolic Blood Pressure 70.00 mm[Hg] WedApril 05 15:53:25 EDT 2024 Pulse Oximetry 96.00 % WedApril 05 15:53 :25 EDT 2024 Heart Rate 68.00 /min WedApril 05 15:53 :25 EDT 2024 Body temperature 98.30 [degF] WedApril 05 15:5 3:25 EDT 2024 Respiratory rate 16.00 /min WedApril 05 15:5 3:25 EDT 2024 Body weight 202.40 [lb_av] WedApril 05 11:59 :25 EDT 2024 Systolic Blood Pressure 128.00 mm[Hg] WedApril 04 23:00:47 EDT 2024 Diastolic Blood Pressure 68.00 mm[Hg] WedApril 04 23:00:47 EDT 2024 Pulse Oximetry 96.00 % WedApril 04 23:00 :47 EDT 2024 Heart Rate 65.00 /min WedApril 04 23:00 :47 EDT 2024 Body temperature 97.80 [degF] WedApril 04 23:0 0:47 EDT 2024 Respiratory rate 18.00 /min WedApril 04 23:0 0:47 EDT 2024 Systolic Blood Pressure 123.00 mm[Hg] WedApril 04 11:56:30 EDT 2024 Diastolic Blood Pressure 63.00 mm[Hg] WedApril 04 11:56:30 EDT 2024 Pulse Oximetry 93.00 % WedApril 04 11:56 :30 EDT 2024 Body weight 206.20 [lb_av] WedApril 04 11:56 :30 EDT 2024 Heart Rate 67.00 /min WedApril 04 11:56 :30 EDT 2024 Body temperature 98.00 [degF] WedApril 04 11:5 6:30 EDT 2024 Respiratory rate 18.00 /min WedApril 04 11:5 6:30 EDT 2024 Body weight 208.20 [lb_av] WedApril 03 15:03 :05 EDT 2024 Systolic Blood Pressure 126.00 mm[Hg] WedApril 03 09:00:30 EDT 2024 Diastolic Blood Pressure 64.00 mm[Hg] WedApril 03 09:00:30 EDT 2024 Pulse Oximetry 94.00 % WedApril 03 09:00 :30 EDT 2024 Heart Rate 70.00 /min WedApril 03 09:00 :30 EDT 2024 Body temperature 97.60 [degF] WedApril 03 09:0 0:30 EDT 2024 Respiratory rate 20.00 /min WedApril 03 09:0 0:30 EDT 2024 Systolic Blood Pressure 124.00 mm[Hg] WedApril 03 03:59:28 EDT 2024 Diastolic Blood Pressure 68.00 mm[Hg] WedApril 03 03:59:28 EDT 2024 Pulse Oximetry 96.00 % WedApril 03 03:59 :28 EDT 2024 Heart Rate 72.00 /min WedApril 03 03:59 :28 EDT 2024 Body temperature 97.80 [degF] WedApril 03 03:5 9:28 EDT 2024 Respiratory rate 18.00 /min WedApril 03 03:5 9:28 EDT 2024 Systolic Blood Pressure 114.00 mm[Hg] WedApril 02 12:25:16 EDT 2024 Diastolic Blood Pressure 61.00 mm[Hg] WedApril 02 12:25:16 EDT 2024 Pulse Oximetry 91.00 % WedApril 02 12:25 :16 EDT 2024 Heart Rate 71.00 /min WedApril 02 12:25 :16 EDT 2024 Body temperature 97.80 [degF] WedApril 02 12:2 5:16 EDT 2024 Respiratory rate 16.00 /min WedApril 02 12:2 5:16 EDT 2024 Systolic Blood Pressure 114.00 mm[Hg] WedApril 01 20:55:00 EDT 2024 Diastolic Blood Pressure 62.00 mm[Hg] WedApril 01 20:55:00 EDT 2024 Pulse Oximetry 98.00 % WedApril 01 20:55 :00 EDT 2024 Heart Rate 66.00 /min WedApril 01 20:55 :00 EDT 2024 Body temperature 98.70 [degF] WedApril 01 20:5 5:00 EDT 2024 Respiratory rate 18.00 /min WedApril 01 20:5 5:00 EDT 2024 Systolic Blood Pressure 117.00 mm[Hg] WedApril 01 11:57:07 EDT 2024 Diastolic Blood Pressure 65.00 mm[Hg] WedApril 01 11:57:07 EDT 2024 Pulse Oximetry 96.00 % WedApril 01 11:57 :07 EDT 2024 Heart Rate 70.00 /min WedApril 01 11:57 :07 EDT 2024 Body temperature 98.40 [degF] WedApril 01 11:5 7:07 EDT 2024 Respiratory rate 14.00 /min WedApril 01 11:5 7:07 EDT 2024 Systolic Blood Pressure 111.00 mm[Hg] WedMarch 31 23:11:04 EDT 2024 Diastolic Blood Pressure 578.00 mm[Hg] WedMarch 31 23:11:04 EDT 2024 Pulse Oximetry 97.00 % WedMarch 31 23:11 :04 EDT 2024 Heart Rate 63.00 /min WedMarch 31 23:11 :04 EDT 2024 Body temperature 98.30 [degF] WedMarch 31 23:1 1:04 EDT 2024 Respiratory rate 18.00 /min WedMarch 31 23:1 1:04 EDT 2024 Systolic Blood Pressure 124.00 mm[Hg] WedMarch 31 18:44:01 EDT 2024 Diastolic Blood Pressure 67.00 mm[Hg] WedMarch 31 18:44:01 EDT 2024 Pulse Oximetry 96.00 % WedMarch 31 18:44 :01 EDT 2024 Heart Rate 69.00 /min WedMarch 31 18:44 :01 EDT 2024 Body temperature 97.20 [degF] WedMarch 31 18:4 4:01 EDT 2024 Respiratory rate 18.00 /min WedMarch 31 18:4 4:01 EDT 2024 Body weight 208.20 [lb_av] WedMarch 31 14:50 :49 EDT 2024 Systolic Blood Pressure 115.00 mm[Hg] WedMarch 31 00:27:15 EDT 2024 Diastolic Blood Pressure 55.00 mm[Hg] WedMarch 31 00:27:15 EDT 2024 Pulse Oximetry 96.00 % WedMarch 31 00:27 :15 EDT 2024 Heart Rate 68.00 /min WedMarch 31 00:27 :15 EDT 2024 Body temperature 98.10 [degF] WedMarch 31 00:2 7:15 EDT 2024 Respiratory rate 18.00 /min WedMarch 31 00:2 7:15 EDT 2024 Systolic Blood Pressure 126.00 mm[Hg] WedMarch 30 14:23:25 EDT 2024 Diastolic Blood Pressure 66.00 mm[Hg] WedMarch 30 14:23:25 EDT 2024 Pulse Oximetry 99.00 % WedMarch 30 14:23 :25 EDT 2024 Body weight 205.40 [lb_av] WedMarch 30 14:23 :25 EDT 2024 Heart Rate 67.00 /min WedMarch 30 14:23 :25 EDT 2024 Body temperature 98.10 [degF] WedMarch 30 14:2 3:25 EDT 2024 Respiratory rate 16.00 /min WedMarch 30 14:2 3:25 EDT 2024 Systolic Blood Pressure 116.00 mm[Hg] WedMarch 30 09:19:11 EDT 2024 Diastolic Blood Pressure 65.00 mm[Hg] WedMarch 30 09:19:11 EDT 2024 Pulse Oximetry 99.00 % WedMarch 30:19 :11 EDT 2024 Heart Rate 67.00 /min WedMarch 30 09:19 :11 EDT 2024 Systolic Blood Pressure 117.00 mm[Hg] WedMarch 30 04:36:37 EDT 2024 Diastolic Blood Pressure 72.00 mm[Hg] WedMarch 30 04:36:37 EDT 2024 Pulse Oximetry 96.00 % WedMarch 30 04:36 :37 EDT 2024 Heart Rate 80.00 /min WedMarch 30 04:36 :37 EDT 2024 Body temperature 97.50 [degF] WedMarch 30 04:3 6:37 EDT 2024 Respiratory rate 18.00 /min WedMarch 30 04:3 6:37 EDT 2024 Body weight 203.20 [lb_av] WedMarch 29 16:05 :05 EDT 2024 Systolic Blood Pressure 103.00 mm[Hg] WedMarch 29 12:10:41 EDT 2024 Diastolic Blood Pressure 68.00 mm[Hg] WedMarch 29 12:10:41 EDT 2024 Pulse Oximetry 96.00 % WedMarch 29 12:10 :41 EDT 2024 Heart Rate 70.00 /min WedMarch 29 12:10 :41 EDT 2024 Body temperature 98.00 [degF] WedMarch 29 12:1 0:41 EDT 2024 Respiratory rate 20.00 /min WedMarch 29 12:1 0:41 EDT 2024 Systolic Blood Pressure 109.00 mm[Hg] WedMarch 29 00:46:24 EDT 2024 Diastolic Blood Pressure 65.00 mm[Hg] WedMarch 29 00:46:24 EDT 2024 Pulse Oximetry 95.00 % WedMarch 29 00:46 :24 EDT 2024 Heart Rate 68.00 /min WedMarch 29 00:46 :24 EDT 2024 Body temperature 98.80 [degF] WedMarch 29 00:4 6:24 EDT 2024 Respiratory rate 18.00 /min WedMarch 29 00:4 6:24 EDT 2024 Systolic Blood Pressure 119.00 mm[Hg] WedMarch 28 14:32:20 EDT 2024 Diastolic Blood Pressure 66.00 mm[Hg] WedMarch 28 14:32:20 EDT 2024 Pulse Oximetry 96.00 % WedMarch 28 14:32 :20 EDT 2024 Heart Rate 68.00 /min WedMarch 28 14:32 :20 EDT 2024 Body temperature 97.40 [degF] WedMarch 28 14:3 2:20 EDT 2024 Respiratory rate 20.00 /min WedMarch 28 14:3 2:20 EDT 2024 Systolic Blood Pressure 119.00 mm[Hg] WedMarch 28 09:06:39 EDT 2024 Diastolic Blood Pressure 66.00 mm[Hg] WedMarch 28 09:06:39 EDT 2024 Pulse Oximetry 96.00 % WedMarch 28 09:06 :39 EDT 2024 Heart Rate 68.00 /min WedMarch 28 09:06 :39 EDT 2024 Systolic Blood Pressure 124.00 mm[Hg] WedMarch 28 04:40:04 EDT 2024 Diastolic Blood Pressure 71.00 mm[Hg] WedMarch 28 04:40:04 EDT 2024 Pulse Oximetry 97.00 % WedMarch 28 04:40 :04 EDT 2024 Heart Rate 75.00 /min WedMarch 28 04:40 :04 EDT 2024 Body temperature 98.50 [degF] WedMarch 28 04:4 0:04 EDT 2024 Respiratory rate 16.00 /min WedMarch 28 04:4 0:04 EDT 2024 Body weight 204.20 [lb_av] WedMarch 27 17:33 :52 EDT 2024 Systolic Blood Pressure 133.00 mm[Hg] WedMarch 27 12:40:41 EDT 2024 Diastolic Blood Pressure 68.00 mm[Hg] WedMarch 27 12:40:41 EDT 2024 Pulse Oximetry 97.00 % WedMarch 27 12:40 :41 EDT 2024 Heart Rate 71.00 /min WedMarch 27 12:40 :41 EDT 2024 Body temperature 97.50 [degF] WedMarch 27 12:4 0:41 EDT 2024 Respiratory rate 16.00 /min WedMarch 27 12:4 0:41 EDT 2024 Systolic Blood Pressure 110.00 mm[Hg] WedMarch 27 01:45:57 EDT 2024 Diastolic Blood Pressure 54.00 mm[Hg] WedMarch 27 01:45:57 EDT 2024 Pulse Oximetry 98.00 % WedMarch 27 01:45 :57 EDT 2024 Heart Rate 64.00 /min WedMarch 27 01:45 :57 EDT 2024 Body temperature 97.60 [degF] WedMarch 27 01:4 5:57 EDT 2024 Respiratory rate 178.00 /min WedMarch 27 01:4 5:57 EDT 2024 Body weight 204.60 [lb_av] WedMarch 26 17:07 :15 EDT 2024 Systolic Blood Pressure 122.00 mm[Hg] WedMarch 26 14:39:04 EDT 2024 Diastolic Blood Pressure 61.00 mm[Hg] WedMarch 26 14:39:04 EDT 2024 Pulse Oximetry 95.00 % WedMarch 26 14:39 :04 EDT 2024 Heart Rate 65.00 /min WedMarch 26 14:39 :04 EDT 2024 Body temperature 98.10 [degF] WedMarch 26 14:3 9:04 EDT 2024 Respiratory rate 18.00 /min WedMarch 26 14:3 9:04 EDT 2024 Body weight 204.60 [lb_av] WedMarch 26 12:15 :00 EDT 2024 Systolic Blood Pressure 108.00 mm[Hg] WedMarch 25 21:34:19 EDT 2024 Diastolic Blood Pressure 58.00 mm[Hg] WedMarch 25 21:34:19 EDT 2024 Pulse Oximetry 92.00 % WedMarch 25 21:34 :19 EDT 2024 Heart Rate 65.00 /min WedMarch 25 21:34 :19 EDT 2024 Body temperature 98.00 [degF] WedMarch 25 21:3 4:19 EDT 2024 Respiratory rate 16.00 /min WedMarch 25 21:3 4:19 EDT 2024 Systolic Blood Pressure 114.00 mm[Hg] WedMarch 25 15:53:53 EDT 2024 Diastolic Blood Pressure 62.00 mm[Hg] WedMarch 25 15:53:53 EDT 2024 Pulse Oximetry 96.00 % WedMarch 25 15:53 :53 EDT 2024 Heart Rate 68.00 /min WedMarch 25 15:53 :53 EDT 2024 Body temperature 97.20 [degF] WedMarch 25 15:5 3:53 EDT 2024 Respiratory rate 20.00 /min WedMarch 25 15:5 3:53 EDT 2024 Systolic Blood Pressure 114.00 mm[Hg] WedMarch 25 07:55:18 EDT 2024 Diastolic Blood Pressure 62.00 mm[Hg] WedMarch 25 07:55:18 EDT 2024 Pulse Oximetry 94.00 % WedMarch 25 07:55 :18 EDT 2024 Heart Rate 68.00 /min WedMarch 25 07:55 :18 EDT 2024 Systolic Blood Pressure 114.00 mm[Hg] WedMarch 24 18:33:27 EDT 2024 Diastolic Blood Pressure 60.00 mm[Hg] WedMarch 24 18:33:27 EDT 2024 Pulse Oximetry 96.00 % WedMarch 24 18:33 :27 EDT 2024 Heart Rate 72.00 /min WedMarch 24 18:33 :27 EDT 2024 Body temperature 98.10 [degF] WedMarch 24 18:3 3:27 EDT 2024 Respiratory rate 20.00 /min WedMarch 24 18:3 3:27 EDT 2024 Systolic Blood Pressure 114.00 mm[Hg] WedMarch 24 16:12:23 EDT 2024 Diastolic Blood Pressure 60.00 mm[Hg] WedMarch 24 16:12:23 EDT 2024 Pulse Oximetry 96.00 % WedMarch 24 16:12 :23 EDT 2024 Heart Rate 72.00 /min WedMarch 24 16:12 :23 EDT 2024 Body temperature 98.10 [degF] WedMarch 24 16:1 2:23 EDT 2024 Respiratory rate 20.00 /min WedMarch 24 16:1 2:23 EDT 2024 Systolic Blood Pressure 102.00 mm[Hg] WedMarch 23 23:26:27 EDT 2024 Diastolic Blood Pressure 77.00 mm[Hg] WedMarch 23 23:26:27 EDT 2024 Pulse Oximetry 95.00 % WedMarch 23 23:26 :27 EDT 2024 Heart Rate 82.00 /min WedMarch 23 23:26 :27 EDT 2024 Body temperature 97.60 [degF] WedMarch 23 23:2 6:27 EDT 2024 Respiratory rate 18.00 /min WedMarch 23 23:2 6:27 EDT 2024 Systolic Blood Pressure 132.00 mm[Hg] WedMarch 23 18:12:25 EDT 2024 Diastolic Blood Pressure 74.00 mm[Hg] WedMarch 23 18:12:25 EDT 2024 Pulse Oximetry 95.00 % WedMarch 23 18:12 :25 EDT 2024 Body weight 186.00 [lb_av] WedMarch 23 18:12 :25 EDT 2024 Heart Rate 68.00 /min WedMarch 23 18:12 :25 EDT 2024 Body temperature 98.00 [degF] WedMarch 23 18:1 2:25 EDT 2024 Respiratory rate 18.00 /min WedMarch 23 18:1 2:25 ED2024 Systolic Blood Pressure 138.00 mm[Hg] WedMarch 23 04:02:59 EDT 2024 Diastolic Blood Pressure 77.00 mm[Hg] WedMarch 23 04:02:59 EDT 2024 Pulse Oximetry 95.00 % WedMarch 23 04:02 :59 EDT 2024 Heart Rate 85.00 /min WedMarch 23 04:02 :59 EDT 2024 Body temperature 97.80 [degF] WedMarch 23 04:0 2:59 EDT 2024 Respiratory rate 18.00 /min WedMarch 23 04:0 2:59 EDT 2024 Systolic Blood Pressure 132.00 mm[Hg] WedMarch 22 15:34:23 EDT 2024 Diastolic Blood Pressure 74.00 mm[Hg] WedMarch 22 15:34:23 EDT 2024 Pulse Oximetry 95.00 % WedMarch 22 15:34 :23 EDT 2024 Body weight 185.00 [lb_av] WedMarch 22 15:34 :23 EDT 2024 Heart Rate 68.00 /min WedMarch 22 15:34 :23 EDT 2024 Body temperature 98.00 [degF] WedMarch 22 15:3 4:23 EDT 2024 Respiratory rate 18.00 /min WedMarch 22 15:3 4:23 EDT 2024 Systolic Blood Pressure 125.00 mm[Hg] WedMarch 22 02:52:38 EDT 2024 Diastolic Blood Pressure 72.00 mm[Hg] WedMarch 22 02:52:38 EDT 2024 Pulse Oximetry 95.00 % WedMarch 22 02:52 :38 EDT 2024 Heart Rate 85.00 /min WedMarch 22 02:52 :38 EDT 2024 Body temperature 98.60 [degF] WedMarch 22 02:5 2:38 EDT 2024 Respiratory rate 18.00 /min WedMarch 22 02:5 2:38 EDT 2024 Systolic Blood Pressure 109.00 mm[Hg] WedMar 21 13:25:34 EDT 2024 Diastolic Blood Pressure 69.00 mm[Hg] WedMar 21 13:25:34 EDT 2024 Pulse Oximetry 99.00 % WedMar 21 13:25 :34 EDT 2024 Heart Rate 80.00 /min WedMar 21 13:25 :34 EDT 2024 Body temperature 97.80 [degF] WedMar 21 13:2 5:34 EDT 2024 Respiratory rate 18.00 /min WedMar 21 13:2 5:34 EDT 2024 Systolic Blood Pressure 109.00 mm[Hg] WedMar 20 23:08:52 EDT 2024 Diastolic Blood Pressure 62.00 mm[Hg] WedMar 20 23:08:52 EDT 2024 Pulse Oximetry 97.00 % WedMar 20 23:08 :52 EDT 2024 Heart Rate 66.00 /min WedMar 20 23:08 :52 EDT 2024 Body temperature 98.00 [degF] WedMar 20 23:0 8:52 EDT 2024 Respiratory rate 16.00 /min WedMar 20 23:0 8:52 EDT 2024 Systolic Blood Pressure 136.00 mm[Hg] WedMar 20 18:47:18 EDT 2024 Diastolic Blood Pressure 67.00 mm[Hg] WedMar 20 18:47:18 EDT 2024 Pulse Oximetry 95.00 % WedMar 20 18:47 :18 EDT 2024 Heart Rate 67.00 /min WedMar 20 18:47 :18 EDT 2024 Body temperature 97.80 [degF] WedMar 20 18:4 7:18 EDT 2024 Respiratory rate 20.00 /min WedMar 20 18:4 7:18 EDT 2024 Systolic Blood Pressure 139.00 mm[Hg] WedMar 20 05:16:27 EDT 2024 Diastolic Blood Pressure 76.00 mm[Hg] WedMar 20 05:16:27 EDT 2024 Pulse Oximetry 96.00 % WedMar 20 05:16 :27 EDT 2024 Heart Rate 78.00 /min WedMar 20 05:16 :27 EDT 2024 Body temperature 97.80 [degF] WedMar 20 05:1 6:27 EDT 2024 Respiratory rate 18.00 /min WedMar 20 05:1 6:27 EDT 2024 Body weight 186.80 [lb_av] WedMar 19 15:37 :39 EDT 2024 Systolic Blood Pressure 146.00 mm[Hg] WedMar 19 14:29:41 EDT 2024 Diastolic Blood Pressure 71.00 mm[Hg] WedMar 19 14:29:41 EDT 2024 Pulse Oximetry 95.00 % WedMar 19 14:29 :41 EDT 2024 Heart Rate 79.00 /min WedMar 19 14:29 :41 EDT 2024 Body temperature 98.00 [degF] WedMar 19 14:2 9:41 EDT 2024 Respiratory rate 20.00 /min WedMar 19 14:2 9:41 EDT 2024 Systolic Blood Pressure 111.00 mm[Hg] WedMar 19 01:03:59 EDT 2024 Diastolic Blood Pressure 57.00 mm[Hg] WedMar 19 01:03:59 EDT 2024 Pulse Oximetry 94.00 % WedMar 19 01:03 :59 EDT 2024 Heart Rate 62.00 /min WedMar 19 01:03 :59 EDT 2024 Body temperature 97.80 [degF] WedMar 19 01:0 3:59 EDT 2024 Respiratory rate 16.00 /min WedMar 19 01:0 3:59 EDT 2024 Systolic Blood Pressure 107.00 mm[Hg] WedMar 18 15:25:29 ED2024 Diastolic Blood Pressure 62.00 mm[Hg] WedMar 18 15:25:29 EDT 2024 Pulse Oximetry 99.00 % WedMar 18 15:25 :29 ED2024 Body weight 186.80 [lb_av] WedMar 18 15:25 :29 EDT 2024 Heart Rate 69.00 /min WedMar 18 15:25 :29 EDT 2024 Body temperature 97.30 [degF] [place] Mar 18 15:2 5:29 EDT 2024 Respiratory rate 18.00 /min [place] Mar 18 15:2 5:29 EDT 2024 Systolic Blood Pressure 99.00 mm[Hg] Sat Mar 17 23:58:42 EDT 2024 Diastolic Blood Pressure 51.00 mm[Hg] Sat Mar 17 23:58:42 EDT 2024 Pulse Oximetry 96.00 % Sat Mar 17 23:58 :42 EDT 2024 Heart Rate 61.00 /min [facility] Mar 17 23:58 :42 EDT 2024 Body temperature 98.10 [degF] Sat Mar 17 23:5 8:42 EDT 2024 Respiratory rate 18.00 /min Sat Mar 17 23:5 8:42 EDT 2024 Systolic Blood Pressure 137.00 mm[Hg] Sat Mar 17 15:01:54 EDT 2024 Diastolic Blood Pressure 65.00 mm[Hg] [facility] Mar 17 15:01:54 EDT 2024 Pulse Oximetry 94.00 % [facility] Mar 17 15:01 :54 EDT 2024 Heart Rate 68.00 /min [facility] Mar 17 15:01 :54 EDT 2024 Body temperature 98.20 [degF] [facility] Mar 17 15:0 1:54 EDT 2024 Respiratory rate 18.00 /min [facility] Mar 17 15:0 1:54 EDT 2024 Body weight 208.00 [lb_av] [facility] Mar 17 13:46 :15 EDT 2024 Systolic Blood Pressure 116.00 mm[Hg] Sat Mar 17 01:36:49 EDT 2024 Diastolic Blood Pressure 57.00 mm[Hg] [facility] Mar 17 01:36:49 EDT 2024 Pulse Oximetry 94.00 % [facility] Mar 17 01:36 :49 EDT 2024 Heart Rate 73.00 /min [facility] Mar 17 01:36 :49 EDT 2024 Body temperature 98.30 [degF] Sat Mar 17 01:3 6:49 EDT 2024 Respiratory rate 18.00 /min Sat Mar 17 01:3 6:49 EDT 2024 Systolic Blood Pressure 102.00 mm[Hg] WedMar 16 17:07:49 EDT 2024 Diastolic Blood Pressure 56.00 mm[Hg] WedMar 16 17:07:49 EDT 2024 Pulse Oximetry 97.00 % WedMar 16 17:07 :49 EDT 2024 Heart Rate 68.00 /min WedMar 16 17:07 :49 EDT 2024 Body temperature 98.10 [degF] WedMar 16 17:0 7:49 EDT 2024 Respiratory rate 20.00 /min WedMar 16 17:0 7:49 EDT 2024 Body weight 198.00 [lb_av] WedMar 16 16:43 :23 EDT 2024 Systolic Blood Pressure 136.00 mm[Hg] WedMar 16 01:12:13 EDT 2024 Diastolic Blood Pressure 87.00 mm[Hg] WedMar 16 01:12:13 EDT 2024 Pulse Oximetry 96.00 % WedMar 16 01:12 :13 EDT 2024 Heart Rate 72.00 /min WedMar 16 01:12 :13 EDT 2024 Body temperature 98.50 [degF] WedMar 16 01:1 2:13 EDT 2024 Respiratory rate 18.00 /min WedMar 16 01:1 2:13 EDT 2024 Body weight 201.80 [lb_av] WedMar 15 17:32 :36 EDT 2024 Systolic Blood Pressure 144.00 mm[Hg] WedMar 15 13:43:10 EDT 2024 Diastolic Blood Pressure 81.00 mm[Hg] WedMar 15 13:43:10 EDT 2024 Pulse Oximetry 94.00 % WedMar 15 13:43 :10 EDT 2024 Heart Rate 74.00 /min WedMar 15 13:43 :10 EDT 2024 Body temperature 97.80 [degF] WedMar 15 13:4 3:10 EDT 2024 Respiratory rate 18.00 /min WedMar 15 13:4 3:10 EDT 2024 Systolic Blood Pressure 146.00 mm[Hg] WedMar 15 05:23:54 EDT 2024 Diastolic Blood Pressure 73.00 mm[Hg] WedMar 15 05:23:54 EDT 2024 Pulse Oximetry 96.00 % WedMar 15 05:23 :54 EDT 2024 Heart Rate 78.00 /min WedMar 15 05:23 :54 EDT 2024 Body temperature 97.80 [degF] WedMar 15 05:2 3:54 EDT 2024 Respiratory rate 18.00 /min WedMar 15 05:2 3:54 EDT 2024 Body weight 181.60 [lb_av] WedMar 14 17:06 :00 EDT 2024 Systolic Blood Pressure 150.00 mm[Hg] WedMar 14 11:20:23 EDT 2024 Diastolic Blood Pressure 62.00 mm[Hg] WedMar 14 11:20:23 EDT 2024 Pulse Oximetry 96.00 % WedMar 14 11:20 :23 EDT 2024 Heart Rate 69.00 /min WedMar 14 11:20 :23 EDT 2024 Body temperature 97.80 [degF] WedMar 14 11:2 0:23 EDT 2024 Respiratory rate 20.00 /min WedMar 14 11:2 0:23 EDT 2024 Systolic Blood Pressure 150.00 mm[Hg] WedMar 14 07:36:19 EDT 2024 Diastolic Blood Pressure 62.00 mm[Hg] WedMar 14 07:36:19 EDT 2024 Pulse Oximetry 96.00 % WedMar 14 07:36 :19 EDT 2024 Heart Rate 69.00 /min WedMar 14 07:36 :19 EDT 2024 Systolic Blood Pressure 118.00 mm[Hg] WedMar 14 02:37:01 EDT 2024 Diastolic Blood Pressure 65.00 mm[Hg] WedMar 14 02:37:01 EDT 2024 Pulse Oximetry 96.00 % WedMar 14 02:37 :01 EDT 2024 Heart Rate 72.00 /min WedMar 14 02:37 :01 EDT 2024 Body temperature 98.50 [degF] WedMar 14 02:3 7:01 EDT 2024 Respiratory rate 18.00 /min WedMar 14 02:3 7:01 EDT 2024 Systolic Blood Pressure 103.00 mm[Hg] WedMar 13 14:55:58 EDT 2024 Diastolic Blood Pressure 55.00 mm[Hg] WedMar 13 14:55:58 EDT 2024 Pulse Oximetry 97.00 % WedMar 13 14:55 :58 EDT 2024 Heart Rate 66.00 /min WedMar 13 14:55 :58 EDT 2024 Body temperature 96.60 [degF] WedMar 13 14:5 5:58 EDT 2024 Respiratory rate 22.00 /min WedMar 13 14:5 5:58 EDT 2024 Systolic Blood Pressure 103.00 mm[Hg] WedMar 13 14:50:59 EDT 2024 Diastolic Blood Pressure 55.00 mm[Hg] WedMar 13 14:50:59 EDT 2024 Pulse Oximetry 97.00 % WedMar 13 14:50 :59 EDT 2024 Heart Rate 66.00 /min WedMar 13 14:50 :59 EDT 2024 Body temperature 96.60 [degF] WedMar 13 14:5 0:59 EDT 2024 Respiratory rate 22.00 /min WedMar 13 14:5 0:59 EDT 2024 Body weight 190.00 [lb_av] WedMar 13 10:20 :56 EDT 2024 Systolic Blood Pressure 132.00 mm[Hg] WedMar 12 17:25:25 EDT 2024 Diastolic Blood Pressure 78.00 mm[Hg] WedMar 12 17:25:25 EDT 2024 Pulse Oximetry 97.00 % WedMar 12 17:25 :25 EDT 2024 Heart Rate 85.00 /min WedMar 12 17:25 :25 EDT 2024 Body temperature 98.50 [degF] WedMar 12 17:2 5:25 EDT 2024 Respiratory rate 18.00 /min WedMar 12 17:2 5:25 EDT 2024 Body weight 231.00 [lb_av] WedMar 12 17:24 :05 EDT 2024 Systolic Blood Pressure 132.00 mm[Hg] WedMar 12 01:19:01 EDT 2024 Diastolic Blood Pressure 78.00 mm[Hg] WedMar 12 01:19:01 EDT 2024 Pulse Oximetry 96.00 % WedMar 12 01:19 :01 EDT 2024 Heart Rate 85.00 /min WedMar 12 01:19 :01 EDT 2024 Body temperature 98.50 [degF] WedMar 12 01:1 9:01 EDT 2024 Respiratory rate 18.00 /min WedMar 12 01:1 9:01 EDT 2024 Body weight 231.00 [lb_av] WedMar 11 18:34 :15 EDT 2024 Systolic Blood Pressure 127.00 mm[Hg] WedMar 11 11:04:27 EDT 2024 Diastolic Blood Pressure 72.00 mm[Hg] WedMar 11 11:04:27 EDT 2024 Pulse Oximetry 98.00 % WedMar 11 11:04 :27 EDT 2024 Heart Rate 74.00 /min WedMar 11 11:04 :27 EDT 2025 Body temperature 98.00 [degF] Sun Apr 20 11:0 4:27 EDT 2024 Respiratory rate 20.00 /min Sun Apr 20 11:0 4:27 EDT 2024 Systolic Blood Pressure 127.00 mm[Hg] Sun Apr 20 08:24:40 EDT 2024 Diastolic Blood Pressure 72.00 mm[Hg] Sun Apr 20 08:24:40 EDT 2024 Pulse Oximetry 98.00 % Sun Apr 20 08:24 :40 EDT 2024 Heart Rate 74.00 /min Sun Apr 20 08:24 :40 EDT 2024 Body temperature 98.00 [degF] Sun Apr 20 08:2 4:40 EDT 2024 Respiratory rate 20.00 /min Sun Apr 20 08:2 4:40 EDT 2024 Systolic Blood Pressure 118.00 mm[Hg] Sat Apr 19 23:27:00 EDT 2024 Diastolic Blood Pressure 59.00 mm[Hg] Sat Apr 19 23:27:00 EDT 2024 Pulse Oximetry 93.00 % Sat Apr 19 23:27 :00 EDT 2024 Heart Rate 66.00 /min Sat Apr 19 23:27 :00 EDT 2024 Body temperature 98.20 [degF] Sat Apr 19 23:2 7:00 EDT 2024 Respiratory rate 18.00 /min Sat Apr 19 23:2 7:00 EDT 2024 Systolic Blood Pressure 110.00 mm[Hg] Sat Apr 19 11:59:20 EDT 2024 Diastolic Blood Pressure 76.00 mm[Hg] Sat Apr 19 11:59:20 EDT 2024 Pulse Oximetry 98.00 % Sat Apr 19 11:59 :20 EDT 2024 Heart Rate 78.00 /min Sat Apr 19 11:59 :20 EDT 2024 Body temperature 98.00 [degF] Sat Apr 19 11:5 9:20 EDT 2024 Respiratory rate 16.00 /min Sat Apr 19 11:5 9:20 EDT 2024 Systolic Blood Pressure 105.00 mm[Hg] Fri Feb 18 22:53:17 EDT 2024 Diastolic Blood Pressure 57.00 mm[Hg] Wed 18 22:53:17 EDT 2024 Pulse Oximetry 94.00 % Wed 18 22:53 :17 EDT 2024 Heart Rate 70.00 /min Wed 18 22:53 :17 EDT 2024 Body temperature 98.30 [degF] WedMar 09 22:5 3:17 EDT 2024 Respiratory rate 18.00 /min Wed 18 22:5 3:17 EDT 2024 Systolic Blood Pressure 104.00 mm[Hg] Wed 18 11:41:25 EDT 2024 Diastolic Blood Pressure 70.00 mm[Hg] WedMar 09 11:41:25 EDT 2024 Pulse Oximetry 98.00 % WedMar 09 11:41 :25 EDT 2024 Heart Rate 85.00 /min WedMar 09 11:41 :25 EDT 2024 Body temperature 97.20 [degF] WedMar 09 11:4 1:25 EDT 2024 Respiratory rate 18.00 /min WedMar 09 11:4 1:25 EDT 2024 Systolic Blood Pressure 108.00 mm[Hg] WedMar 09 03:09:31 EDT 2024 Diastolic Blood Pressure 71.00 mm[Hg] WedMar 09 03:09:31 EDT 2024 Pulse Oximetry 96.00 % WedMar 09 03:09 :31 EDT 2024 Heart Rate 76.00 /min WedMar 09 03:09 :31 EDT 2024 Body temperature 97.50 [degF] WedMar 09 03:0 9:31 EDT 2024 Respiratory rate 18.00 /min WedMar 09 03:0 9:31 EDT 2024 Systolic Blood Pressure 99.00 mm[Hg] Tyra Mar 08 17:19:35 ED2024 Diastolic Blood Pressure 53.00 mm[Hg] Tyra Mar 08 17:19:35 ED2024 Pulse Oximetry 93.00 % Tyra Feb 17 17:19 :35 EDT 2024 Body weight 197.50 [lb_av] Tyra Feb 17 17:19 :35 EDT 2024 Heart Rate 72.00 /min Tyra Feb 17 17:19 :35 EDT 2024 Body temperature 97.10 [degF] Tyra Feb 17 17:1 9:35 EDT 2024 Respiratory rate 18.00 /min Tyra Feb 17 17:1 9:35 EDT 2024 Systolic Blood Pressure 121.00 mm[Hg] WedMar 07 23:22:28 EDT 2024 Diastolic Blood Pressure 78.00 mm[Hg] WedMar 07 23:22:28 EDT 2024 Pulse Oximetry 95.00 % WedMar 07 23:22 :28 EDT 2024 Heart Rate 82.00 /min Wed 16 23:22 :28 EDT 2024 Body temperature 98.50 [degF] WedMar 07 23:2 2:28 EDT 2024 Respiratory rate 18.00 /min WedMar 07 23:2 2:28 EDT 2024 Systolic Blood Pressure 114.00 mm[Hg] Wed 16 18:38:26 EDT 2024 Diastolic Blood Pressure 68.00 mm[Hg] Wed 16 18:38:26 EDT 2024 Pulse Oximetry 93.00 % WedMar 07 18:38 :26 EDT 2024 Heart Rate 78.00 /min WedMar 07 18:38 :26 EDT 2024 Body temperature 97.20 [degF] WedMar 07 18:3 8:26 EDT 2024 Respiratory rate 18.00 /min WedMar 07 18:3 8:26 EDT 2024 Systolic Blood Pressure 114.00 mm[Hg] WedMar 07 08:00:31 ED2024 Diastolic Blood Pressure 68.00 mm[Hg] WedMar 07 08:00:31 EDT 2024 Pulse Oximetry 93.00 % WedMar 07 08:00 :31 EDT 2024 Heart Rate 78.00 /min WedMar 07 08:00 :31 EDT 2024 Body temperature 97.20 [degF] WedMar 07 08:0 0:31 ED2024 Respiratory rate 18.00 /min WedMar 07 08:0 0:31 EDT 2024 Systolic Blood Pressure 138.00 mm[Hg] WedMar 06 23:46:49 ED2024 Diastolic Blood Pressure 60.00 mm[Hg] WedMar 06 23:46:49 ED2024 Pulse Oximetry 98.00 % WedMar 06 23:46 :49 EDT 2024 Heart Rate 73.00 /min WedMar 06 23:46 :49 ED2024 Body temperature 97.60 [degF] WedMar 06 23:4 6:49 EDT 2024 Respiratory rate 20.00 /min WedMar 06 23:4 6:49 EDT 2024 Systolic Blood Pressure 109.00 mm[Hg] WedMar 06 18:48:40 ED2024 Diastolic Blood Pressure 57.00 mm[Hg] WedMar 06 18:48:40 EDT 2024 Pulse Oximetry 97.00 % WedMar 06 18:48 :40 EDT 2024 Heart Rate 75.00 /min WedMar 06 18:48 :40 EDT 2024 Body temperature 98.20 [degF] WedMar 06 18:4 8:40 EDT 2024 Respiratory rate 20.00 /min WedMar 06 18:4 8:40 EDT 2024 Systolic Blood Pressure 118.00 mm[Hg] WedMar 06 04:44:41 EDT 2024 Diastolic Blood Pressure 72.00 mm[Hg] WedMar 06 04:44:41 EDT 2024 Pulse Oximetry 95.00 % WedMar 06 04:44 :41 EDT 2024 Heart Rate 86.00 /min WedMar 06 04:44 :41 EDT 2024 Body temperature 97.80 [degF] WedMar 06 04:4 4:41 EDT 2024 Respiratory rate 18.00 /min WedMar 06 04:4 4:41 EDT 2024 Systolic Blood Pressure 111.00 mm[Hg] WedMar 05 18:52:55 EDT 2024 Diastolic Blood Pressure 64.00 mm[Hg] WedMar 05 18:52:55 EDT 2024 Pulse Oximetry 96.00 % WedMar 05 18:52 :55 EDT 2024 Heart Rate 74.00 /min WedMar 05 18:52 :55 EDT 2024 Body temperature 97.30 [degF] WedMar 05 18:5 2:55 EDT 2024 Respiratory rate 20.00 /min WedMar 05 18:5 2:55 EDT 2024 Body weight 209.20 [lb_av] WedMar 05 18:25 :07 EDT 2024 Systolic Blood Pressure 134.00 mm[Hg] WedMar 04 23:11:27 EDT 2024 Diastolic Blood Pressure 65.00 mm[Hg] WedMar 04 23:11:27 EDT 2024 Pulse Oximetry 94.00 % WedMar 04 23:11 :27 EDT 2024 Heart Rate 76.00 /min WedMar 04 23:11 :27 EDT 2024 Body temperature 97.30 [degF] WedMar 04 23:1 1:27 EDT 2024 Respiratory rate 18.00 /min WedMar 04 23:1 1:27 EDT 2024 Systolic Blood Pressure 126.00 mm[Hg] WedMar 04 16:03:01 EDT 2024 Diastolic Blood Pressure 73.00 mm[Hg] Sun Apr 13 16:03:01 EDT 2024 Pulse Oximetry 98.00 % [place] Feb 13 16:03 :01 EDT 2024 Body weight 204.20 [lb_av] [place] Feb 13 16:03 :01 EDT 2024 Heart Rate 68.00 /min [place] Mar 04 16:03 :01 EDT 2024 Body temperature 97.80 [degF] [facility] 16:0 3:01 EDT 2024 Respiratory rate 20.00 /min [facility] 16:0 3:01 EDT 2024 Systolic Blood Pressure 99.00 mm[Hg] [facility] 12 22:47:40 EDT 2024 Diastolic Blood Pressure 59.00 mm[Hg] [facility] 12 22:47:40 EDT 2024 Pulse Oximetry 96.00 % [facility] 12 22:47 :40 EDT 2024 Heart Rate 67.00 /min [facility] 12 22:47 :40 EDT 2024 Body temperature 98.30 [degF] [facility] 12 22:4 7:40 EDT 2024 Respiratory rate 18.00 /min [facility] 12 22:4 7:40 EDT 2024 Body weight 205.90 [lb_av] [facility] 12 18:19 :57 EDT 2024 Systolic Blood Pressure 128.00 mm[Hg] [facility] 12 15:45:21 EDT 2024 Diastolic Blood Pressure 71.00 mm[Hg] [facility] 12 15:45:21 EDT 2024 Pulse Oximetry 98.00 % [facility] 12 15:45 :21 EDT 2024 Heart Rate 80.00 /min [facility] 12 15:45 :21 EDT 2024 Body temperature 98.00 [degF] [facility] 12 15:4 5:21 EDT 2024 Respiratory rate 18.00 /min [facility] 12 15:4 5:21 EDT 2024 Systolic Blood Pressure 104.00 mm[Hg] WedMar 02 23:29:33 EDT 2024 Diastolic Blood Pressure 58.00 mm[Hg] WedMar 02 23:29:33 EDT 2024 Pulse Oximetry 98.00 % WedMar 02 23:29 :33 EDT 2024 Heart Rate 73.00 /min WedMar 02 23:29 :33 EDT 2024 Body temperature 98.10 [degF] WedMar 02 23:2 9:33 EDT 2024 Respiratory rate 18.00 /min WedMar 02 23:2 9:33 EDT 2024 Body weight 205.00 [lb_av] WedMar 02 19:24 :56 EDT 2024 Systolic Blood Pressure 95.00 mm[Hg] WedMar 02 18:51:30 EDT 2024 Diastolic Blood Pressure 49.00 mm[Hg] WedMar 02 18:51:30 EDT 2024 Pulse Oximetry 95.00 % WedMar 02 18:51 :30 EDT 2024 Heart Rate 73.00 /min WedMar 02 18:51 :30 EDT 2024 Body temperature 95.00 [degF] WedMar 02 18:5 1:30 EDT 2024 Respiratory rate 20.00 /min WedMar 02 18:5 1:30 EDT 2024 Systolic Blood Pressure 132.00 mm[Hg] WedMar 02 02:47:35 EDT 2024 Diastolic Blood Pressure 73.00 mm[Hg] WedMar 02 02:47:35 EDT 2024 Pulse Oximetry 96.00 % WedMar 02 02:47 :35 EDT 2024 Heart Rate 85.00 /min WedMar 02 02:47 :35 EDT 2024 Body temperature 98.50 [degF] WedMar 02 02:4 7:35 EDT 2024 Respiratory rate 18.00 /min WedMar 02 02:4 7:35 EDT 2024 Systolic Blood Pressure 124.00 mm[Hg] [facility] Mar 01 16:55:38 EDT 2024 Diastolic Blood Pressure 69.00 mm[Hg] [facility] Mar 01 16:55:38 EDT 2024 Pulse Oximetry 97.00 % [facility] Mar 01 16:55 :38 EDT 2024 Heart Rate 65.00 /min Tyra Mar 01 16:55 :38 EDT 2024 Body temperature 97.90 [degF] [facility] Mar 01 16:5 5:38 EDT 2024 Respiratory rate 16.00 /min WedMar 01 16:5 5:38 EDT 2024 Systolic Blood Pressure 117.00 mm[Hg] WedFeb 28 21:14:55 EDT 2024 Diastolic Blood Pressure 57.00 mm[Hg] WedFeb 28 21:14:55 EDT 2024 Pulse Oximetry 98.00 % WedFeb 28 21:14 :55 EDT 2024 Heart Rate 65.00 /min WedFeb 28 21:14 :55 EDT 2024 Body temperature 97.70 [degF] WedFeb 28 21:1 4:55 EDT 2024 Respiratory rate 18.00 /min WedFeb 28 21:1 4:55 EDT 2024 Systolic Blood Pressure 117.00 mm[Hg] WedFeb 28 17:12:20 EDT 2024 Diastolic Blood Pressure 57.00 mm[Hg] WedFeb 28 17:12:20 EDT 2024 Pulse Oximetry 98.00 % WedFeb 28 17:12 :20 EDT 2024 Heart Rate 65.00 /min WedFeb 28 17:12 :20 EDT 2024 Body temperature 97.10 [degF] WedFeb 28 17:1 2:20 EDT 2024 Respiratory rate 20.00 /min WedFeb 28 17:1 2:20 EDT 2024 Systolic Blood Pressure 117.00 mm[Hg] WedFeb 28 15:42:07 EDT 2024 Diastolic Blood Pressure 57.00 mm[Hg] WedFeb 28 15:42:07 EDT 2024 Pulse Oximetry 98.00 % WedFeb 28 15:42 :07 EDT 2024 Heart Rate 65.00 /min WedFeb 28 15:42 :07 EDT 2024 Body Height 73.00 [in_i] WedFeb 28 10:59 :33 EDT 2024 Systolic Blood Pressure 122.00 mm[Hg] WedFeb 28 03:15:31 EDT 2024 Diastolic Blood Pressure 68.00 mm[Hg] WedFeb 28 03:15:31 EDT 2024 Pulse Oximetry 96.00 % WedFeb 28 03:15 :31 EDT 2024 Heart Rate 75.00 /min WedFeb 28 03:15 :31 EDT 2024 Body temperature 97.80 [degF] WedFeb 28 03:1 5:31 EDT 2024 Respiratory rate 18.00 /min WedFeb 28 03:1 5:31 EDT 2024 Systolic Blood Pressure 117.00 mm[Hg] WedFeb 27 16:57:14 EDT 2024 Diastolic Blood Pressure 64.00 mm[Hg] WedFeb 27 16:57:14 EDT 2024 Pulse Oximetry 93.00 % WedFeb 27 16:57 :14 EDT 2024 Heart Rate 70.00 /min WedFeb 27 16:57 :14 EDT 2024 Body temperature 97.70 [degF] WedFeb 27 16:5 7:14 EDT 2024 Respiratory rate 20.00 /min WedFeb 27 16:5 7:14 EDT 2024 Reason for Referral
--- OUTSIDE RECORDS SUMMARY | 2025-06-26 17:39 | XMS_ITS | Encounter Summary ---
Author Organization [facility] Address [address] [place] [id number] Care Team Providers Care Natural Gas Treating Unit Operator Name Role Phone Sj Benson MD Primary Care Provider [phone] Encounter Details Date Type Department Care Team (Late st Contact Info) Description 06/26/2025 3:06 PM CDT Hospital Encounter [facility] [place] [address] [place], [address] [place] [id number] Social History Tobacco Use Types Packs/Day Years [...] Chronic kidney disease, stage II (mild) Fatigue documented in this encounter Results * (ABNORMAL) COMPREHENSIVE METABOLIC PANEL (06/26/2025 12:42 PM CDT) [facility] GLUCOSE 112(H) 70 - 99 MG/DL 06/26/2025 3:48 PM CDT [facility] BUN 27(H) 7 - 18 MG/DL 06/26/2025 3:48 PM CDT [facility] CREATININE S/P/B 1.01 0.7 - 1.3 MG/DL 06/26/2025 3:48 PM CDT [facility] SODIUM S/P/B 139 136 - 145 MMOL/L 06/26/2025 3:48 PM CDT [facility] POTASSIUM S/P/B 3.8 3.5 - 5.1 MMOL/L 06/26/2025 3:48 PM CDT [facility] CHLORIDE S/P/B 104 97 - 115 MMOL/L 06/26/2025 3:48 PM CDT [facility] CO2 26.3 21 - 32 MMOL/L 06/26/2025 3:48 PM CDT [facility] CALCIUM S/P/B 9.7 8.5 - 10.1 MG/DL 06/26/2025 3:48 PM CDT [facility] BILIRUBIN TOTAL S/P/B 0.4 0.2 - 1.2 MG/DL 06/26/2025 3:48 PM CDT [facility] Comment: THIS ASSAY IS NOT RECOMMENDED FOR PATIENTS UNDERGOING TREATMENT WITH ELTROMBOPAG DUE TO THE POTENTIAL FOR FALSELY ELEVATED RESULTS. TOTAL PROTEIN S/P/B 6.1(L) 6.4 - 8.2 G/DL 06/26/2025 3:48 PM CDT [facility] ALBUMIN S/P/B 3.1(L) 3.4 - 5.0 G/DL 06/26/2025 3:48 PM CDT [facility] AST 9(L) 15 - 37 U/L 06/26/2025 3:48 PM CDT [facility] ALT 13(L) 16 - 60 U/L 06/26/2025 3:48 PM CDT [facility] ALKALINE PHOSPHATASE S/P/B 84 50 - 136 U/L 06/26/2025 3:48 PM CDT [facility] ANION GAP 8.7 2 - 10 MMOL/L 06/26/2025 3:48 PM CDT [facility] BUN CREATININE RATIO 26.7(H) 6 - 26 06/26/2025 3:48 PM CDT [facility] A/G RATIO 1.0 1.0 - 2.0 RATIO 06/26/2025 3:48 PM CDT [facility] GFR ESTIMATE 77(L) >90 ML/MIN/1.7 3 M2 06/26/2025 3:48 PM CDT [facility] Comment: NOTE: eGFR is [...] [place] DO LABORATORY Final Resu lt [facility] [address] [place] [address], [place] [phone] * (ABNORMAL) CBC W/DIFF AUTOMATED (06/26/2025 12:42 PM CDT) WBC 14.87(H) 4.5 - 11.0 x10'3/uL 06/26/2025 3:30 PM CDT [facility] RBC 4.03(L) 4.70 - 6.10 x10'6/uL 06/26/2025 3:30 PM CDT [facility] HGB 10.4(L) 14.0 - 18.0 G/DL 06/26/2025 3:30 PM CDT [facility] HCT 33.6(L) 43.0 - 54.0 % 06/26/2025 3:30 PM CDT [facility] MCV 83.4 80.0 - 94.0 FL 06/26/2025 3:30 PM CDT [facility] MCH 25.8(L) 27.0 - 31.0 PG 06/26/2025 3:30 PM CDT [facility] MCHC 31.0(L) 32.0 - 36.0 G/DL 06/26/2025 3:30 PM CDT [facility] RDW 17.5(H) 11.5 - 14.5 % 06/26/2025 3:30 PM CDT [facility] PLT 361 130 - 400 x10'3/uL 06/26/2025 3:30 PM CDT [facility] MPV 9.3 9.3 - 12.2 FL 06/26/2025 3:30 PM CDT [facility] DIFFERENTIAL TYPE MANUAL DIFFERENTIAL 06/26/2025 4:12 PM CDT [facility] SEG NEUTROPHILS 91 % 4:12 PM CDT [facility] LYMPHOCYTES 3 % 06/26/2025 4:12 PM CDT [facility] MONOCYTES 5 % 06/26/2025 4:12 PM CDT [facility] BASOPHILS 1 % 06/26/2025 4:12 PM CDT [facility] ABS. NEUTROPHILS 13.53(H) 1.80 - 7.70 x10'3/uL 06/26/2025 4:12 PM CDT [facility] ABS. LYMPHOCYTES 0.45(L) 1.00 - 4.80 x10'3/uL 06/26/2025 4:12 PM CDT [facility] ABS. MONOCYTES 0.74 0.30 - 0.82 x10'3/uL 06/26/2025 4:12 PM CDT [facility] ABS. BASOPHILS 0.15(H) 0.01 - 0.08 x10'3/uL 06/26/2025 4:12 PM CDT [facility] RBC MORPHOLOGY RBC MORPHOLOGY APPEARS NORMAL. SLIDE REVIEWED. 06/26/2025 4:12 PM CDT [facility] PLT EST. ADEQUATE 06/26/2025 4:12 PM CDT [facility] 06/26/2025 12:4 2 PM CDT us [place] DO LABORATORY Final Resu lt [facility] [address] [place] [address], documented in this encounter Visit Diagnoses Diagnosis Chronic embolism and thrombosis of right popliteal vein (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
--- OUTSIDE RECORDS SUMMARY | 2025-06-26 17:39 | XMS_ITS | Patient Health Record ---
Author Organization [facility] [employer] [place] ([address]) Address [address] [place] [address] Care Team Providers Care Inspector Process Name Role Phone Sj Benson Primary Care Provider Dr. Shay Joseph Unavailable [phone] Allergies Allergen (clinical drug ingredient) Drug/Non Drug [...] 1 mg 1 tab(s) orally once a day; Duration: 30 day(s) Active Finasteride 1 MG 1 tab(s) orally once a day; Duration: 30 day(s) Active Florastor 250 MG 1 cap(s) orally 2 times a day Active TAMSULOSIN 0.4 mg 1 cap(s) orally once a day; Duration: 30 day(s) Active TRAMADOL 50 mg 1 tab(s) orally PRN Active DULOXETINE 30 mg 1 cap(s) orally 2 times a day Active DULoxetine HCl 30 MG 1 cap(s) orally 2 times a day Active traMADol HCl 50 MG 1 tab(s) orally PRN Active Tamsulosin HCl 0.4 MG 1 cap(s) orally on ce a day; Duration: 30 day(s) Active Social History Tobacco Use: Social History Observation Description Date Details (start date - stop date) Never Smoker NA - NA Smoking Smart Form: Question Answer Notes Are you a: never smoker Problems Problem Type SNOMED Code ICD Code Onset Dates Problem Status W/U Status Risk Notes Problem Chronic migraine without aura, non-refractory (disorder) (28906535598774 0) Migraine without aura, not intractable, without status migrainosus (G43.009) Active confirmed Problem Migraine with aura (3886483) Migraine with aura, not intractable, without status migrainosus (G43.109) Active confirmed Problem Chronic migraine without aura, non-intractable (72448152207977 0) Chronic migraine without aura, not intractable, without status migrainosus (G43.709) Active confirmed Problem 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 [address] [id number] Thus, Ryan Self - patient is the insured [facility] [address] [place] [address] [id number] Thus, Ryan Self - patient is the [...]
--- OUTSIDE RECORDS SUMMARY | 2025-06-26 17:39 | XMS_ITS | Clinical Summary ---
Author Organization [facility] Address [address] [place] [address] Phone Care Team Providers Care Ingot Buggy Operator Name Role Phone Unavailable Primary Care Provider Unavailabl e Allergies Active Allergy Reactions Criticality Noted Date Comments Sulfa (Sulfonamide Antibiotics) Unknown 07/2021 Sulfa Dyne Unknown 06/27/2024 Medications baclofen (LIORESAL) 10 mg tablet Take 1 [...] Encounters Date Type Department Care Team Description 05/08/2025 External Device Data [facility] ABSTRACTION Provider, Abstract 04/12/2025 External Device Data [facility] ABSTRACTION Provider, Abstract 04/12/2025 External Device Data [facility] ABSTRACTION Provider, Abstract 04/11/2025 External Device Data [facility] ABSTRACTION Provider, Abstract 04/10/2025 External Device Data [facility] ABSTRACTION Provider, Abstract from Last 3 Months Social History Tobacco Use Types Packs/Day Years Used Date Smoking Tobacco: Never Smokeless Tobacco: Never Alcohol Use Standard Drinks/Week Comments Never 0 (1 standard drink = 0.6 oz pur e alcohol) Sex and Gender Information Value Date Recorded Sex Assigned at Male 06/26/2024 7:32 PM CDT Legal Sex Male 3:17 PM CDT Gender Identity Male 06/26/2024 7:32 PM CDT Sexual Orientation Not on file Last Filed Vital Signs Vital Sign Reading Time Taken Comments Blood Pressure 104/69 06/27/2024 1:41 PM CDT Pulse 70 06/27/2024 1:41 PM CDT Temperature 36.5 C (97.7 F) 06/27/2024 1:41 PM CDT Respiratory Rate 18 06/27/2024 1:41 PM CDT Oxygen Saturation 99% 06/27/2024 1:41 PM CDT Inhaled Oxygen Concentration - - Weight 97.9 kg (215 lb 12.8 oz) 06/27/2024 1:41 PM CDT Height 182.9 cm (6') 06/27/2024 1:41 PM CDT Body Mass Index 29.27 06/27/2024 1:41 PM CDT Plan of Treatment Health Maintenance Due Date Last Done Comments PNEUMOCOCCAL VACCINE 50+ YEA RS (1 of 1 - PCV) 1998 ZOSTER VACCINE (1 of 2) 1998 RSV VACCINE (60+ or ) (1 - 1-dose 75+ series) 2023 INFLUENZA VACCINE (#1) 2025 DTAP/TDAP/TD VACCINES (3 - Td or Tdap) 08/10/2027, 03/04/2017 Insurance MEDICARE PART A AND B [facility]
[2025-06-26 17:51] LABS: Hematocrit 33.2 % (42.0-52.0); Hemoglobin 10.0 g/dL (14.0-18.0); Immature Granulocyte Percent A 0.5 % (0-0.5); Lymphocytes Absolute Auto 0.85 K/mm3 (0.9-3.2); Mean Corpuscular HGB Conc 30.1 g/dl (32-36); Mean Corpuscular Hemoglobin 24.8 pg (26-34); Mean Corpuscular Volume 82.2 fl (80-100); Nucleated Red Blood Cells Absolute Auto 0.000 K/mm3 (0.0-0.012); Nucleated Red Blood Cells Perc 0.0 % (0.0-0.2); Platelet Count Result 338 k/mm3 (150-375); Red Blood Count 4.04 M/mm3 (4.6-6.20); White Blood Count 12.2 K/mm3 (4.5-10.0)
[2025-06-26 18:01] LABS: INR 1.7; Prothrombin Time 19.8 Seconds (11.1-14.7)
[2025-06-26 18:02] LABS: Partial Thromboplastin Time 43.5 Seconds (22.3-36.8)
[2025-06-26 18:07] LABS: Alanine Aminotransferase 11 U/L (6-50); Albumin Level 3.9 g/dL (3.5-5.1); Aspartate Amino Transferase 18 U/L (17-59); Blood Urea Nitrogen 29 mg/dL (9-20); Carbon Dioxide 25 mmol/L (22-30); Estimated CRCL calculation 59 ml/min; Estimated Glomerular Filt Rate > 60; Total Protein 6.9 g/dL (6.3-8.2)
[2025-06-26 18:14] LABS: Troponin I < 0.012 ng/mL (0.000-0.034)
[2025-06-26 18:45] LABS: Influenza A QL RT-PCR Negative (Negative); Influenza B QL RT-PCR Negative (Negative); RSV RNA, RT-PCR Negative (Negative); SARS-CoV-2 RNA PCR Negative (Negative)
[2025-06-26 18:51] LABS: Add Urine Microscopic? YES; Appearance Urine Cloudy (Clear); Glucose Urine UA Negative (Negative); Leukocyte Esterase Ur 3+ LEU/UL (Negative); Need Manual Microscopic Reviewed; Nitrate Urine Negative (Negative); Specific Grav Ur 1.023 (1.001-1.035)
--- NOTE | 2025-06-26 18:58 | PC.NURSE ---
spoke with Aleksandra from [facility] at this time with a patient update. told her that when there are results in and more of a plan the RN would contact them with a more defined plan of care.
[2025-06-26 19:10] LABS: Alkaline Phosphatase 74 U/L (38-126); Anion Gap 9 mmol/L (4-12); Bilirubin,Total 0.3 mg/dL (0.2-1.3); Calcium 9.7 mg/dL (8.4-10.2); Chloride 103 mmol/L (98-107); Creatine Kinase 28 U/L (55-170); Glucose 116 mg/dL (65-110); Lipase 31 U/L (23-300); Potassium 3.9 mmol/L (3.4-5.0); Sodium 137 mmol/L (137-145)
--- NOTE | 2025-06-26 19:30 | PC.NURSE ---
This RN assumed care of pt from [facility] FLORES. PT daughter requesting to tiki FLORES. Pt has fonseca in place, wound to coccyx, and iv in place. Daughter ok with transition of care to estephania and HUMBERTO, Graduate nurse
[2025-06-26] MEDS: SODIUM CHLORIDE 0.9% IV 1,000 ML 999 ML IV CONT ×3 (19:51→22:27)
[2025-06-26] MEDS: MORPHINE SULFATE (*CRX) 2 MG/ML INJ IV PUSH (19:52)
[2025-06-26] MEDS: ACETAMINOPHEN 500 MG TABLET 1000 MG PO (20:16)
[2025-06-26] MEDS: GABAPENTIN 300 MG CAPSULE 900 MG PO (20:18)
[2025-06-26] MEDS: PIPERACILLIN/TAZOBACTAM SOD 3.375 GM in SODIUM CHLORIDE 0.9% IV 50 ML 100 ML IVPB (21:18)
[2025-06-26] MEDS: VANCOMYCIN 1,500 MG/NS 500 ML 1,500 MG/500 ML BAG 333.33 MG IVPB (22:27)
--- NOTE | 2025-06-26 23:31 | WNDPHOTO ---
PHOTO ONLY - See Nursing Notes and/ or assessments for documentation.
--- NOTE | 2025-06-26 23:32 | WNDPHOTO ---
PHOTO ONLY - See Nursing Notes and/ or assessments for documentation.
[2025-06-27 00:09] VITALS: BP 112/54; PULSE 75; RESP 14; TEMP 36.9; O2SAT 94
[2025-06-27] MEDS: SODIUM CHLORIDE 0.9% IV 1,000 ML 100 ML IV CONT (01:23)
[2025-06-27] MEDS: PIPERACILLIN/TAZOBACTAM SOD 3.375 GM in SODIUM CHLORIDE 0.9% IV 50 ML 100 ML IVPB ×4 (05:04→21:19)
[2025-06-27 05:21] VITALS: BP 153/62; PULSE 87; RESP 17; TEMP 37.6; O2SAT 93
[2025-06-27 06:01] VITALS: PULSE 87; RESP 17; O2SAT 93
--- NOTE | 2025-06-27 06:03 | P.HP_ITS ---
H&P: HPI History of Present Illness Date/Time: 06/27/25 06:03 Chief Complaint: Increased confusion and lethargy since yesterday Narrative: 74-year-old male with a past medical history of neurogenic bladder with chronic indwelling Zheng catheter, paraplegia since 2023 after spinal surgery, chronic kidney disease, and decubitus ulcer who presented to the ER with increased confusion. Nursing staff had stated that the patient was alert oriented x3 at the time of admission at the time of my evaluation the patient was only oriented to person and year and was subsequently unable to provide much history. Subsequently majority of information was obtained from review of past medical records and ER physician report. The patient was sent in from long term due to the lethargy and increased confusion. He had reportedly had a fever greater than 100? at the long term. They obtained outpatient blood work that demonstrated leukocytosis. The long term had initially reported that the patient had been started on antibiotics due to an abnormal urinalysis but then they reviewed the patient's chart and stated that he was never started on antibiotics. The patient's Zheng catheter was exchanged 4 days ago. The patient's catheter was not exchanged in the ER as he has had a history in the past of difficulty replacing the catheter. The patient denied any pain but had obvious grimacing when his abdomen was palpated. He denied feeling particularly bad. He denies any headache or nausea or vomiting. He was initially afebrile on presentation but did spike a fever up to [address] scan did demonstrate ascending urinary tract infection. Since presentation to the ER the did have an elevated white count and his urine was consistent with UTI. He was placed on empiric antibiotic therapy with Zosyn and vancomycin blood cultures were obtained and are pending Review of Systems 2 Review of Systems: Review of systems limited due to the patient's confusion PMFSH Past Medical History Medical History (Updated 06/27/25 @ 06:12 by Joi Aranda DO) Sacral decubitus ulcer Right leg DVT Chronic anemia Tethered spinal cord Benign prostatic hyperplasia Chronic kidney disease Neurogenic bladder Neurogenic bowel, not elsewhere classified Paraplegia, incomplete Thoracic myelopathy Bladder stones Bladder cancer Requiring excision of tumor Surgical History Surgical History Spinal cord stimulator status History of bladder surgery excision of bladder tumor History of back surgery (10/02/24) posterior lumbar thoracic spinal fusion with instrumentation, 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 given compression of thoracic myelopathy at [facility] Family History Family History Father Acute myocardial infarction, Onset Age: 57 Patient's father is Mother Patient's mother is Unknown Family history not known due to adoption Social History Social History (Updated 06/27/25 @ 06:10 by Joi Aranda DO) Social History: Surrogate medical decision maker: Gricelda Delgado, spouse. Code status: Full code. Smoking status: Never smoker Second hand tobacco smoke exposure: No Alcohol intake: never Substance use: never Substance use type: does not use Do You Feel Safe in your Home?: Yes Lack of Transportation: No Lack of Food: Never True Current Housing: I Have Housing Concerned About Future Housing: No Difficulty Paying Gas/Electric Bills: No Difficulty Paying for Meds: No Currently Unemployed: No Education: High School Diploma/GED Difficulty w/ Childcare or Family Care: No Living arrangements: with family Additional living arrangements comments: The patient is . He used to live in [place] with his but is now in [place]. They have 3 children. Occupation/Education: retired Additional occupation/education comments: [employer] care concerns: No Meds Home Medications and Allergies Home Medications ?Medication ?Instructions ?Recorded ?Confirmed ?Type Florastor 1 cap PO DAILY 10/14/24 06/27/25 History acetaminophen 2 tablet BYMOUTH TID Pain 10/14/24 06/27/25 History apixaban 5 mg tablet 5 mg PO BID #60 tabs 11/05/24 06/27/25 Rx finasteride 5 mg tablet 5 mg PO DAILY #30 tabs 11/05/24 06/27/25 Rx tamsulosin 0.4 mg capsule 0.4 mg PO HS #30 caps 11/05/24 06/27/25 Rx duloxetine 30 mg capsule,delayed 30 mg PO BID 12/04/24 06/27/25 History release gabapentin 300 mg capsule 800 mg PO TID 12/04/24 06/27/25 History arginine 7 gram-glutam 7 1 packet PO BID 06/27/25 06/27/25 History gram-CaHMB 1.5 [id number] oral pwd pkt (Gurpreet (with collagen)) cholecalciferol (vitamin D3) 25 25 mcg PO DAILY 06/27/25 06/27/25 History mcg (1,000 unit) capsule collagenase clostridium histo. 250 1 applic topical DAILY 06/27/25 06/27/25 History unit/gram topical ointment (Santyl) cyanocobalamin (vitamin B-12) 1,000 mcg PO DAILY 06/27/25 06/27/25 History 1,000 mcg capsule diclofenac sodium 1 % topical gel 2 g topical DAILY PRN pain 06/27/25 06/27/25 History (Aspercreme Arthritis Pain) guaifenesin 600 mg tablet, 600 mg PO BID 06/27/25 06/27/25 History extended release 12 hr (Mucinex) lidocaine 4 % topical patch 1 patch transdermal Q12H 06/27/25 06/27/25 History (Lidocaine Pain Relief) methocarbamol 750 mg tablet 1,500 mg PO QID 06/27/25 06/27/25 History naloxone 0.4 mg/mL injection 0.4 mg IM Q2M PRN opioid reversal 06/27/25 06/27/25 History syringe oxycodone 5 mg tablet 5 mg PO Q4H PRN Pain 06/27/25 06/27/25 History pantoprazole 40 mg tablet,delayed 40 mg PO DAILY 06/27/25 06/27/25 History release Allergies Allergy/AdvReac Type Severity Reaction Status Date / Time Sulfa (Sulfonamide Allergy Unknown Unknown Verified 10/14/24 15:51 Antibiotics) Vital Signs Vital Signs - 24 hr 06/26/25 16:59 06/26/25 17:16 06/26/25 18:30 Temperature 98.6 F Pulse Rate 73 71 Respiratory Rate 19 17 18 Blood Pressure 120/64 150/77 H Pulse Oximetry 97 99 100 Oxygen Delivery Room Air 06/26/25 18:52 06/26/25 18:55 06/26/25 19:00 Temperature Pulse Rate 94 Respiratory Rate 18 Blood Pressure 160/75 H Pulse Oximetry 100 98 97 Oxygen Delivery 06/26/25 19:01 06/26/25 19:04 06/26/25 19:15 Temperature 99.5 F Pulse Rate 81 Respiratory Rate 19 Blood Pressure 161/72 H Pulse Oximetry 97 71 L 98 Oxygen Delivery 06/26/25 19:16 06/26/25 19:30 06/26/25 19:45 Temperature Pulse Rate Respiratory Rate Blood Pressure 133/82 Pulse Oximetry 98 97 91 Oxygen Delivery 06/26/25 19:49 06/26/25 19:52 06/26/25 20:00 Temperature 104.1 F H Pulse Rate Respiratory Rate Blood Pressure 142/122 H 119/58 L Pulse Oximetry 92 91 Oxygen Delivery 06/26/25 20:00 06/26/25 20:01 06/26/25 20:15 Temperature Pulse Rate Respiratory Rate Blood Pressure 143/67 H Pulse Oximetry 96 96 Oxygen Delivery 06/26/25 20:16 06/26/25 20:30 06/26/25 20:31 Temperature Pulse Rate Respiratory Rate Blood Pressure 122/62 129/81 Pulse Oximetry 98 100 97 Oxygen Delivery 06/26/25 20:32 06/26/25 20:42 06/26/25 20:45 Temperature Pulse Rate 80 84 Respiratory Rate 17 15 Blood Pressure 131/55 L Pulse Oximetry 97 100 96 Oxygen Delivery 06/26/25 21:00 06/26/25 21:01 06/26/25 21:15 Temperature Pulse Rate 87 88 86 Respiratory Rate 17 21 H 23 H Blood Pressure 130/69 Pulse Oximetry 97 96 97 Oxygen Delivery 06/26/25 21:30 06/26/25 21:31 06/26/25 21:45 Temperature Pulse Rate 89 88 86 Respiratory Rate 23 H 20 24 H Blood Pressure 126/63 Pulse Oximetry 96 98 100 Oxygen Delivery 06/26/25 22:00 06/26/25 22:01 06/26/25 22:15 Temperature Pulse Rate 84 83 82 Respiratory Rate 26 H 30 H 22 H Blood Pressure 110/56 L Pulse Oximetry 96 99 95 Oxygen Delivery 06/26/25 22:30 06/26/25 22:31 06/26/25 22:45 Temperature Pulse Rate 79 79 80 Respiratory Rate 30 H 25 H 29 H Blood Pressure 116/57 L Pulse Oximetry 93 96 94 Oxygen Delivery 06/26/25 23:00 06/26/25 23:01 06/26/25 23:11 Temperature 100.1 F H 100.1 F H Pulse Rate 78 78 78 Respiratory Rate 28 H 25 H 25 H Blood Pressure 110/57 L 110/57 L Pulse Oximetry 94 94 94 Oxygen Delivery 06/27/25 00:09 06/27/25 05:21 Temperature 98.4 F 99.6 F Pulse Rate 75 87 Respiratory Rate 14 17 Blood Pressure 112/54 L 153/62 H Pulse Oximetry 94 93 Oxygen Delivery Exam 2 Narrative: Weight 97.1 kg BMI 28.2 Const: Other: Mildly ill-appearing, will debilitated, appears stated age HENMT: Other: Head is normocephalic atraumatic, mucous membranes are dry Eyes: Other: Pupils are equal and reactive, no scleral icterus Neck: Other: Large neck circumference, no JVD, no lymphadenopathy Resp: Other: Clear to auscultation bilaterally anterior lung payne, no increased work of breathing Cardio: Other: Mildly tachycardic, 2+ bilateral radial pedal pulses, no murmur GI: Other: Tender in the suprapubic region and left lower quadrant, abdomen is distended, normoactive bowel sounds, no organomegaly : Other: Uncircumcised male Zheng catheter in place draining clear yellow urine Skin: Other: Hot to touch, non jaundice Neuro: Other: Patient is alert oriented to person and year he is confused as to the month when I asked him where were [place], the patient had myoclonic jerking of lower extremities with exam Extrem: Other: Patient grimaces in has limited range of motion of the left shoulder he has 3/5 laborer adjustable steel joist strength on the left hand and 5/5 laborer adjustable steel joist strength of the right Psych: Other: Confused, has difficulty following commands, flat affect, poor judgment and insight H&P: Results Labs Labs: Laboratory Tests 06/26/25 17:42 06/26/25 17:42 06/26/25 06/26/25 06/26/25 17:42 17:58 18:25 WBC 12.2 H RBC 4.04 L Hgb 10.0 L Hct 33.2 L MCV 82.2 MCH 24.8 L MCHC 30.1 L RDW 17.4 H Plt Count 338 MPV 8.9 Immature Gran % (Auto) 0.5 Neut % (Auto) 82.1 H Lymph % (Auto) 7.0 L Winn % (Auto) 10.0 H Eos % (Auto) 0.2 Baso % (Auto) 0.2 Lymph # (Auto) 0.85 L Winn # (Auto) 1.2 H Eos # (Auto) 0.0 Baso # (Auto) 0.0 Abs Immat Gran (auto) 0.06 H Absolute Neuts (auto) 10.0 H Absolute Nucleated RBC 0.000 Nucleated RBC % 0.0 PT 19.8 H INR 1.7 APTT 43.5 H Sodium 137 Potassium 3.9 Chloride 103 Carbon Dioxide 25 Anion Gap 9 BUN 29 H D Creatinine 1.04 Estim Creat Clear Calc 59 Estimated GFR > 60 Glucose 116 H Lactic Acid 1.5 Calcium 9.7 Total Bilirubin 0.3 AST 18 ALT 11 Alkaline Phosphatase 74 Total Creatine Kinase 28 L Troponin I < 0.012 Total Protein 6.9 Albumin 3.9 Lipase 31 Urine Color Yellow Urine Appearance Cloudy H Urine pH 8.5 Ur Specific [place] 1.023 Urine Protein 2+ H Urine Glucose (UA) Negative Urine Ketones Negative Ur Blood (Man) 3+ H Urine Nitrate Negative Urine Bilirubin Negative Urine Urobilinogen 0.2 Add Ur Microanalysis Reviewed Leukocyte Esterase Rfl 3+ H Urine RBC >100 H Urine WBC >100 H Ur Squamous Epith Cells None seen Urine Bacteria 4+ H Urine Casts 3-5 Influenza A (RT-PCR) Negative Influenza B (RT-PCR) Negative RSV (RT-PCR) Negative SARS-CoV-2 RNA (RT-PCR) Negative Impressions Chest X-Ray 06/26/25 19:01 IMPRESSION: No focal infiltrate or effusion. Head CT 06/26/25 19:31 Impression: No acute intracranial hemorrhage or suspicious mass effect. Abdomen/Pelvis CT 06/26/25 20:21 IMPRESSION: Findings consistent with ascending urinary tract infection, as detailed above. EKG:Test Date: 2025-06-26 17:52:11 Measurements Intervals [place] Rate: 67 P: -62 SD: 189 QRS: 89 QRSD: 104 T: 76 QT: 375 QTc: 397 Interpretive Statements SINUS RHYTHM DELAYED PRECORDIAL R/S TRANSITION BASELINE ARTIFACT- I, II, III, AVR, AVL, AVF, V1-V6 BORDERLINE ECG Compared to ECG 05/16/2024 17:18:38 HEART RATE HAS INCREASED Assessment and Plan Assessment and plan (1) Sepsis: Qualifiers: Sepsis acute organ dysfunction status: with acute organ dysfunction S epsis type: sepsis due to unspecified organism Severe sepsis acute organ dysfunction type: encephalopathy Severe sepsis shock status: without septic shock Qualified Code(s): A41.9 - Sepsis, unspecified organism; R65.20 - Severe sepsis without septic shock; G93.41 - Metabolic encephalopathy Code(s): A41.9 - Sepsis, unspecified organism Status: Acute (2) Pyelonephritis: Code(s): N12 - Tubulo-interstitial nephritis, not specified as acute or chronic Status: Acute (3) Chronic indwelling Zheng catheter: Code(s): Z97.8 - Presence of other specified devices Status: Acute (4) Sacral decubitus ulcer: Qualifiers: Pressure injury stage: stage 4 Qualified Code(s): L89.154 - Pressure ulcer of sacral region, stage 4 Code(s): L89.159 - Pressure ulcer of sacral region, unspecified stage Status: Acute (5) Acute metabolic encephalopathy: Code(s): G93.41 - Metabolic encephalopathy Status: Acute Plan Patient meets sepsis criteria with tachycardia, leukocytosis and fever in the setting of Zheng catheter associated UTI causing ascending urinary tract infection with pyelonephritis. Patient's Zheng catheter was recently changed at the long term. Urine cultures and blood cultures have been obtained and the patient was started on empiric antibiotic therapy with Zosyn and vancomycin. If patient's MRSA screen is negative we could discontinue vancomycin. Will continue IV fluid hydration. Patient did receive 30 mL/kilos fluid bolus in the ER. Will monitor I&O's closely. Patient has associated metabolic encephalopathy with sepsis. Will continue patient's medications for his BPH neurogenic bladder and bowel regimen as well as generalized spasticity. The patient does have chronic decubitus ulcer but does not appear to be acutely infected. Will continue localized wound care. Wound care consult has been placed. MEDICAL DECISION MAKING NARRATIVE -Spoke with the ED provider in detail regarding patient's evaluation, workup and management -Patient seen and examined at bedside -Collaborated with patient's nurse at the bedside in detail and addressed all concerns -Labs, electrolytes, radiology, investigations and test results reviewed -ED/Consult/Nursing/Ancilliary notes on the chart reviewed and appreciated Quality VTE Prophylaxis VTE prophylaxis: pharmacologic ordered (Continue home Eliquis.) Hospitalist MIPS Advance Care Plan I have confirmed that the patient's Advanced Care Plan is present, code status is documented, or surrogate decision maker is listed in patient medical record.: Yes Medication Reconciliation I have utilized all available resources to obtain, update and review the patients current medications (includes all prescriptions, OTC, herbals, cannabis, and nutritional supplements).: Yes
[2025-06-27 07:08] LABS: Estimated CRCL calculation 67 ml/min; Estimated Glomerular Filt Rate > 60
[2025-06-27] MEDS: COLLAGENASE OINT 30 GM TUBE 1 APPLIC TOPICAL (08:13)
[2025-06-27] MEDS: APIXABAN 5 MG TABLET PO ×2 (08:13→21:20)
[2025-06-27] MEDS: guaiFENesin 12 HR 600 MG TABCR PO ×2 (08:13→21:20)
[2025-06-27] MEDS: CHOLECALCIFEROL (VITAMIN D3) 25 MCG (1,000 UNITS) TABLET PO (08:13)
[2025-06-27] MEDS: GABAPENTIN 400 MG CAPSULE 800 MG PO ×3 (08:13→17:19)
[2025-06-27] MEDS: CYANOCOBALAMIN 1,000 MCG TABLET 1000 MCG PO (08:14)
[2025-06-27] MEDS: PANTOPRAZOLE 40 MG TABLET PO (08:14)
[2025-06-27] MEDS: FINASTERIDE 5 MG TABLET PO (08:14)
[2025-06-27] MEDS: SACCHAROMYCES BOULARDII 250 MG CAPSULE PO (08:15)
[2025-06-27] MEDS: LIDOCAINE 5% PATCH 1 PATCH TRANSDERM (08:17)
--- NOTE | 2025-06-27 08:59 | P.PNIM_ITS ---
Progress Note: A&P Assessment and Plan (1) Sepsis: Qualifiers: Sepsis acute organ dysfunction status: with acute organ dysfunction Sepsis type: sepsis due to unspecified organism Severe sepsis acute organ dysfunction type: encephalopathy Severe sepsis shock status: without septic shock Qualified Code(s): A41.9 - Sepsis, unspecified organism; R65.20 - Severe sepsis without septic shock; G93.41 - Metabolic encephalopathy Code(s): A41.9 - Sepsis, unspecified organism Status: Acute Assessment and Plan: Meets SIRS criteria: febrile (104.1), tachypneic, and leukocytosis - lactic acid: WNL - Received sepsis fluids - suspected source: pyelonephritis - blood cultures drawn on 06/26 - UA: cloudy appearance with 2+ protein, 3+ blood, 3+ leukocytes, > 100 RBC< > 100 WBC, 4+ bacteria - Urine culture obtained on 06/26 - CT abdomen/pelvis: Redemonstration of enhancing urothelial thickening along the bilateral ureters and collecting systems the bilateral kidneys, consistent with an ascending urinary tract infection, left greater than right. - CXR: unremarkable - Head CT obtained for acute confusion: unremarkable WBC has returned to WNL. Remains afebrile. See plan below. (2) Acute metabolic encephalopathy: Code(s): G93.41 - Metabolic encephalopathy Status: Acute Assessment and Plan: secondary to acute infection Head CT obtained for acute confusion: unremarkable see plan for pyelonephritis below (3) Pyelonephritis: Code(s): N12 - Tubulo-interstitial nephritis, not specified as acute or chronic Status: Acute Assessment and Plan: - UA: cloudy appearance with 2+ protein, 3+ blood, 3+ leukocytes, > 100 RBC< > 100 WBC, 4+ bacteria - Urine culture obtained on 06/26 - CT abdomen/pelvis: Redemonstration of enhancing urothelial thickening along the bilateral ureters and collecting systems the bilateral kidneys, consistent with an ascending urinary tract infection, left greater than right. - previous micro reviewed 08/05/21: Enterobacter cloacae resistant to augmentin and keflex 10/17/24, 10/21/24, 11/06/24: pseudomonas aeruginoas pansensitive 05/15/25: Enterobacter cloacae/asburia and group b strep resistant to augmentin and keflex - started on vancomycin and zosyn on 06/27, MRSA negative DC vancomycin (4) Chronic indwelling Zhegn catheter: Code(s): Z97.8 - Presence of other specified devices Status: Acute Assessment and Plan: Neurogenic bladder with chronic indwelling Zheng catheter Zheng catheter was exchanged 4 days ago. The patient's catheter was not exchanged in the ER as he has had a history in the past of difficulty replacing the catheter. (5) Sacral decubitus ulcer: Qualifiers: Pressure injury stage: stage 4 Qualified Code(s): L89.154 - Pressure ulcer of sacral region, stage 4 Code(s): L89.159 - Pressure ulcer of sacral region, unspecified stage Status: Acute Assessment and Plan: Chronic Wound consulted. Time Spent With Patient Time with patient: 25 - 35 minutes Subjective Date/time seen: 06/27/25 08:59 Interval history: 74-year-old male with a past medical history of neurogenic bladder with chronic indwelling Zheng catheter, paraplegia since 2023 after spinal surgery, chronic kidney disease, and decubitus ulcer who presented to the ER with increased confusion. Patient is pleasant lying comfortably in bed with family at bedside. He continues to endorse lower abdominal pain worse in the right and mild flank pain. He has no other complaints denying chest pain, palpitations, shortness a breath, nausea/vomiting. Review of Systems Review of Systems: All systems reviewed & are unremarkable except as noted in HPI and below Exam Narrative: AF HR 87 RR 17 SPO2 93 BP 153/62 General: male in no acute respiratory distress who is nontoxic appearing, lying semi recumbent in bed. HEENT: Normocephalic. Atraumatic. Extraocular movement intact. Sclera clear and anicteric. No facial asymmetry. Chest: Lungs are clear to auscultation bilaterally. No wheezes or crackles. CV: Heart was regular rate and rhythm. Abd: Abdomen was soft. Tenderness to lower abdomen. Nondistended. Positive bowel sounds. Zheng catheter in place with clear straw colored urine. Ext: No clubbing, cyanosis, or edema. DP pulses bilaterally. Neuro: Patient is alert and oriented x3. Speech is clear. Objective Data Vital Signs Vital Signs: Vital Signs - 24 hr 06/26/25 16:59 06/26/25 17:16 06/26/25 18:30 Temperature 98.6 F Pulse Rate 73 71 Respiratory Rate 19 17 18 Blood Pressure 120/64 150/77 H Pulse Oximetry 97 99 100 Oxygen Delivery Room Air 06/26/25 18:52 06/26/25 18:55 06/26/25 19:00 Temperature Pulse Rate 94 Respiratory Rate 18 Blood Pressure 160/75 H Pulse Oximetry 100 98 97 Oxygen Delivery 06/26/25 19:01 06/26/25 19:04 06/26/25 19:15 Temperature 99.5 F Pulse Rate 81 Respiratory Rate 19 Blood Pressure 161/72 H Pulse Oximetry 97 71 L 98 Oxygen Delivery 06/26/25 19:16 06/26/25 19:30 06/26/25 19:45 Temperature Pulse Rate Respiratory Rate Blood Pressure 133/82 Pulse Oximetry 98 97 91 Oxygen Delivery 06/26/25 19:49 06/26/25 19:52 06/26/25 20:00 Temperature 104.1 F H Pulse Rate Respiratory Rate Blood Pressure 142/122 H 119/58 L Pulse Oximetry 92 91 Oxygen Delivery 06/26/25 20:00 06/26/25 20:01 06/26/25 20:15 Temperature Pulse Rate Respiratory Rate Blood Pressure 143/67 H Pulse Oximetry 96 96 Oxygen Delivery 06/26/25 20:16 06/26/25 20:30 06/26/25 20:31 Temperature Pulse Rate Respiratory Rate Blood Pressure 122/62 129/81 Pulse Oximetry 98 100 97 Oxygen Delivery 06/26/25 20:32 06/26/25 20:42 06/26/25 20:45 Temperature Pulse Rate 80 84 Respiratory Rate 17 15 Blood Pressure 131/55 L Pulse Oximetry 97 100 96 Oxygen Delivery 06/26/25 21:00 06/26/25 21:01 06/26/25 21:15 Temperature Pulse Rate 87 88 86 Respiratory Rate 17 21 H 23 H Blood Pressure 130/69 Pulse Oximetry 97 96 97 Oxygen Delivery 06/26/25 21:30 06/26/25 21:31 06/26/25 21:45 Temperature Pulse Rate 89 88 86 Respiratory Rate 23 H 20 24 H Blood Pressure 126/63 Pulse Oximetry 96 98 100 Oxygen Delivery 06/26/25 22:00 06/26/25 22:01 06/26/25 22:15 Temperature Pulse Rate 84 83 82 Respiratory Rate 26 H 30 H 22 H Blood Pressure 110/56 L Pulse Oximetry 96 99 95 Oxygen Delivery 06/26/25 22:30 06/26/25 22:31 08/05/25 22:45 Temperature Pulse Rate 79 79 80 Respiratory Rate 30 H 25 H 29 H Blood Pressure 116/57 L Pulse Oximetry 93 96 94 Oxygen Delivery 06/26/25 23:00 06/26/25 23:01 06/26/25 23:11 Temperature 100.1 F H 100.1 F H Pulse Rate 78 78 78 Respiratory Rate 28 H 25 H 25 H Blood Pressure 110/57 L 110/57 L Pulse Oximetry 94 94 94 Oxygen Delivery 06/27/25 00:09 06/27/25 05:21 06/27/25 06:01 Temperature 98.4 F 99.6 F Pulse Rate 75 87 87 Respiratory Rate 14 17 17 Blood Pressure 112/54 L 153/62 H Pulse Oximetry 94 93 93 Oxygen Delivery Room Air Intake/Output Intake/Output: Intake & Output 06/24/25 06/25/25 06/26/25 06/27/25 23:59 23:59 23:59 23:59 Intake Total 3050 150 Output Total 500 1300 Balance 2550 -1150 Meds/Results Medications: Active Medications Generic Name Dose Route Start Last Admin Trade Name Freq PRN Reason Stop Dose Admin Apixaban 5 mg 06/27/25 09:00 06/27/25 08:13 Apixaban 5 Mg Tablet PO 5 mg Q12HR FENG Administration Collagenase 1 applic 06/27/25 09:00 06/27/25 08:13 Collagenase Oint 30 Gm Tube TOPICAL 1 applic DAILY FENG Administration Cyanocobalamin 1,000 mcg 06/27/25 09:00 06/27/25 08:14 Cyanocobalamin 1,000 Mcg Tablet PO 1,000 mcg DAILY FENG Administration Diclofenac Sodium 1 applic 06/27/25 06:07 Diclofenac Sodium 1% 100 Gm Gel (*Bkc) TOPICAL DAILY PRN pain Duloxetine HCl 30 mg 06/27/25 09:00 06/27/25 08:14 Duloxetine Hcl 30 Mg Capsule.Dr PO 30 mg BID FENG Administration Finasteride 5 mg 06/27/25 09:00 06/27/25 08:14 Finasteride 5 Mg Tablet PO 5 mg DAILY FENG Administration Gabapentin 800 mg 06/27/25 09:00 06/27/25 08:13 Gabapentin 400 Mg Capsule PO 800 mg TID FENG Administration Guaifenesin 600 mg 06/27/25 09:00 06/27/25 08:13 Guaifenesin 12 Hr 600 Mg Tabcr PO 600 mg Q12HR FENG Administration Sodium Chloride 1,000 mls @ 100 mls/hr 06/26/25 21:55 06/27/25 08:39 Normal Saline Iv IV CONT Not Given .Q10H FENG Piperacillin Sod/Tazobactam 50 mls @ 100 mls/hr 06/27/25 03:00 06/27/25 08:13 Sod 3.375 gm/ Sodium Chloride IVPB 100 mls/hr Q6H FENG Administration Vancomycin HCl 1,500 mg in 500 mls @ 250 mls/hr 06/27/25 16:00 Vancomycin 1,500 Mg/Ns 500 Ml IVPB Q18H FENG Lidocaine 1 patch 06/27/25 09:00 06/27/25 08:17 Lidocaine 5% Patch TRANSDERM 1 patch DAILY FENG Administration Methocarbamol 1,500 mg 06/27/25 09:00 06/27/25 08:14 Methocarbamol 750 Mg Tablet PO 1,500 mg QID FENG Administration Morphine Sulfate 2 mg 06/26/25 21:53 Morphine Sulfate (*Crx) 2 Mg/Ml Inj IV PUSH Q2H PRN Pain Rated 7-10 Oxycodone HCl 5 mg 06/27/25 06:07 Oxycodone Hcl (*Crx) 5 Mg Tab Ir PO Q4H PRN Pain 7-10 Pantoprazole Sodium 40 mg 06/27/25 09:00 06/27/25 08:14 Pantoprazole 40 Mg Tablet PO 40 mg DAILY FENG Administration Saccharomyces Boulardii 250 mg 06/27/25 09:00 06/27/25 08:15 Saccharomyces Boulardii 250 Mg Capsule PO 250 mg DAILY FENG Administration Tamsulosin HCl 0.4 mg 06/27/25 21:00 Tamsulosin Hcl 0.4 Mg Capsule PO [facility] Vitamin D 25 mcg 06/27/25 09:00 06/27/25 08:13 Cholecalciferol (Vitamin D3) 25 Mcg (1,000 Units) Tablet PO 25 mcg DAILY FENG Administration Radiology Results: ITS Impressions Chest X-Ray 06/26/25 19:01 IMPRESSION: No focal infiltrate or effusion. Head CT 06/26/25 19:31 Impression: No acute intracranial hemorrhage or suspicious mass effect. Abdomen/Pelvis CT 06/26/25 20:21 IMPRESSION: Findings consistent with ascending urinary tract infection, as detailed above. Labs Labs: Laboratory Results - last 24 hr 06/26/25 06/26/25 06/26/25 17:42 17:58 18:25 WBC 12.2 H RBC 4.04 L Hgb 10.0 L Hct 33.2 L MCV 82.2 MCH 24.8 L MCHC 30.1 L RDW 17.4 H Plt Count 338 MPV 8.9 Immature Gran % (Auto) 0.5 Neut % (Auto) 82.1 H Lymph % (Auto) 7.0 L [place] % (Auto) 10.0 H Eos % (Auto) 0.2 Baso % (Auto) 0.2 Lymph # (Auto) 0.85 L [place] # (Auto) 1.2 H Eos # (Auto) 0.0 Baso # (Auto) 0.0 Abs Immat Gran (auto) 0.06 H Absolute Neuts (auto) 10.0 H Absolute Nucleated RBC 0.000 Nucleated RBC % 0.0 PT 19.8 H INR 1.7 APTT 43.5 H Sodium 137 Potassium 3.9 Chloride 103 Carbon Dioxide 25 Anion Gap 9 BUN 29 H D Creatinine 1.04 Estim Creat Clear Calc 59 Estimated GFR > 60 Glucose 116 H Lactic Acid 1.5 Calcium 9.7 Total Bilirubin 0.3 AST 18 ALT 11 Alkaline Phosphatase 74 Total Creatine Kinase 28 L Troponin I < 0.012 Total Protein 6.9 Albumin 3.9 Lipase 31 Urine Color Yellow Urine Appearance Cloudy H Urine pH 8.5 Ur Specific [place] 1.023 Urine Protein 2+ H Urine Glucose (UA) Negative Urine Ketones Negative Ur Blood (Man) 3+ H Urine Nitrate Negative Urine Bilirubin Negative Urine Urobilinogen 0.2 Add Ur Microanalysis Reviewed Leukocyte Esterase Rfl 3+ H Urine RBC >100 H Urine WBC >100 H Ur Squamous Epith Cells None seen Urine Bacteria 4+ H Urine Casts 3-5 Influenza A (RT-PCR) Negative Influenza B (RT-PCR) Negative RSV (RT-PCR) Negative SARS-CoV-2 RNA (RT-PCR) Negative 06/27/25 05:26 WBC RBC Hgb Hct MCV MCH MCHC RDW Plt Count MPV Immature Gran % (Auto) Neut % (Auto) Lymph % (Auto) [place] % (Auto) Eos % (Auto) Baso % (Auto) Lymph # (Auto) [place] # (Auto) Eos # (Auto) Baso # (Auto) Abs Immat Gran (auto) Absolute Neuts (auto) Absolute Nucleated RBC Nucleated RBC % PT INR APTT Sodium Potassium Chloride Carbon Dioxide Anion Gap BUN Creatinine 0.93 Estim Creat Clear Calc 67 Estimated GFR > 60 Glucose Lactic Acid Calcium Total Bilirubin AST ALT Alkaline Phosphatase Total Creatine Kinase Troponin I Total Protein Albumin Lipase Urine Color Urine Appearance Urine pH Ur Specific [place] Urine Protein Urine Glucose (UA) Urine Ketones Ur Blood (Man) Urine Nitrate Urine Bilirubin Urine Urobilinogen Add Ur Microanalysis Leukocyte Esterase Rfl Urine RBC Urine WBC Ur Squamous Epith Cells Urine Bacteria Urine Casts Influenza A (RT-PCR) Influenza B (RT-PCR) RSV (RT-PCR) SARS-CoV-2 RNA (RT-PCR) Quality VTE Prophylaxis VTE prophylaxis: pharmacologic ordered (Continue home Eliquis.)
[2025-06-27 09:27] LABS: Hematocrit 28.4 % (42.0-52.0); Hemoglobin 8.3 g/dL (14.0-18.0); Mean Corpuscular HGB Conc 29.2 g/dl (32-36); Mean Corpuscular Hemoglobin 24.7 pg (26-34); Mean Corpuscular Volume 84.5 fl (80-100); Platelet Count Result 233 k/mm3 (150-375); Red Blood Count 3.36 M/mm3 (4.6-6.20); White Blood Count 7.0 K/mm3 (4.5-10.0)
[2025-06-27 10:06] LABS: Alanine Aminotransferase 13 U/L (6-50); Albumin Level 2.9 g/dL (3.5-5.1); Alkaline Phosphatase 66 U/L (38-126); Anion Gap 8 mmol/L (4-12); Aspartate Amino Transferase 17 U/L (17-59); Bilirubin,Total 0.2 mg/dL (0.2-1.3); Blood Urea Nitrogen 18 mg/dL (9-20); Calcium 8.7 mg/dL (8.4-10.2); Carbon Dioxide 21 mmol/L (22-30); Chloride 110 mmol/L (98-107); Estimated CRCL calculation 67 ml/min; Estimated Glomerular Filt Rate > 60; Glucose 135 mg/dL (65-110); Potassium 3.4 mmol/L (3.4-5.0); Sodium 139 mmol/L (137-145); Total Protein 5.4 g/dL (6.3-8.2)
[2025-06-27 11:32] VITALS: TEMP 36.6
[2025-06-27 12:29] VITALS: BMI 28.2
[2025-06-27 13:24] LABS: MRSA (PCR) NOT DETECTED (NOT DETECTE)
[2025-06-27 14:00] VITALS: BP 130/75; PULSE 72; RESP 20; TEMP 36.4; O2SAT 97
[2025-06-27] MEDS: TAMSULOSIN HCL 0.4 MG CAPSULE PO (21:20)
[2025-06-27 21:32] VITALS: BP 125/61; PULSE 73; RESP 16; TEMP 37.4; O2SAT 94
[2025-06-28] MEDS: ACETAMINOPHEN 325 MG TABLET 650 MG PO (00:14)
[2025-06-28] MEDS: PIPERACILLIN/TAZOBACTAM SOD 3.375 GM in SODIUM CHLORIDE 0.9% IV 50 ML 100 ML IVPB ×4 (04:12→20:51)
[2025-06-28 06:00] VITALS: BP 118/63; PULSE 62; RESP 14; TEMP 36.5; O2SAT 97
[2025-06-28 06:19] LABS: Hematocrit 27.0 % (42.0-52.0); Hemoglobin 8.3 g/dL (14.0-18.0); Mean Corpuscular HGB Conc 30.7 g/dl (32-36); Mean Corpuscular Hemoglobin 25.2 pg (26-34); Mean Corpuscular Volume 81.8 fl (80-100); Platelet Count Result 252 k/mm3 (150-375); Red Blood Count 3.30 M/mm3 (4.6-6.20); White Blood Count 6.3 K/mm3 (4.5-10.0)
[2025-06-28 06:39] LABS: Alanine Aminotransferase 17 U/L (6-50); Albumin Level 2.9 g/dL (3.5-5.1); Alkaline Phosphatase 69 U/L (38-126); Anion Gap 9 mmol/L (4-12); Aspartate Amino Transferase 23 U/L (17-59); Bilirubin,Total 0.3 mg/dL (0.2-1.3); Blood Urea Nitrogen 17 mg/dL (9-20); Calcium 9.0 mg/dL (8.4-10.2); Carbon Dioxide 22 mmol/L (22-30); Chloride 108 mmol/L (98-107); Estimated CRCL calculation 64 ml/min; Estimated Glomerular Filt Rate > 60; Glucose 112 mg/dL (65-110); Potassium 3.6 mmol/L (3.4-5.0); Sodium 139 mmol/L (137-145); Total Protein 5.5 g/dL (6.3-8.2)
--- NOTE | 2025-06-28 07:53 | P.PNIM_ITS ---
Progress Note: A&P Assessment and Plan (1) Sepsis: Qualifiers: Sepsis acute organ dysfunction status: with acute organ dysfunction Sepsis type: sepsis due to unspecified organism Severe sepsis acute organ dysfunction type: encephalopathy Severe sepsis shock status: without septic shock Qualified Code(s): A41.9 - Sepsis, unspecified organism; R65.20 - Severe sepsis without septic shock; G93.41 - Metabolic encephalopathy Code(s): A41.9 - Sepsis, unspecified organism Status: Acute Assessment and Plan: Meets SIRS criteria: febrile (104.1), tachypneic, and leukocytosis - lactic acid: WNL - Received sepsis fluids - suspected source: pyelonephritis - blood cultures drawn on 06/26: pending - UA: cloudy appearance with 2+ protein, 3+ blood, 3+ leukocytes, > 100 RBC< > 100 WBC, 4+ bacteria - Urine culture obtained on 06/26: pending - CT abdomen/pelvis: Redemonstration of enhancing urothelial thickening along the bilateral ureters and collecting systems the bilateral kidneys, consistent with an ascending urinary tract infection, left greater than right. - CXR: unremarkable - Head CT obtained for acute confusion: unremarkable WBC remains WNL. Remains afebrile. See plan below. (2) Acute metabolic encephalopathy: Code(s): G93.41 - Metabolic encephalopathy Status: Acute Assessment and Plan: Secondary to acute infection Currently AOx3 Head CT obtained for acute confusion: unremarkable See plan for pyelonephritis below (3) Pyelonephritis: Code(s): N12 - Tubulo-interstitial nephritis, not specified as acute or chronic Status: Acute Assessment and Plan: - UA: cloudy appearance with 2+ protein, 3+ blood, 3+ leukocytes, > 100 RBC< > 100 WBC, 4+ bacteria - Urine culture obtained on 06/26: pending - CT abdomen/pelvis: Redemonstration of enhancing urothelial thickening along the bilateral ureters and collecting systems the bilateral kidneys, consistent with an ascending urinary tract infection, left greater than right. - previous micro reviewed 08/05/21: Enterobacter cloacae resistant to augmentin and keflex 10/17/24, 10/21/24, 11/06/24: pseudomonas aeruginoas pansensitive 05/15/25: Enterobacter cloacae/asburia and group b strep resistant to augmentin and keflex - started on vancomycin and Zosyn on 06/27, MRSA negative DC vancomycin (4) Chronic indwelling Zheng catheter: Code(s): Z97.8 - Presence of other specified devices Status: Acute Assessment and Plan: Neurogenic bladder with chronic indwelling Zheng catheter Zheng catheter was exchanged 4 days ago. The patient's catheter was not exchanged in the ER as he has had a history in t he past of difficulty replacing the catheter. (5) Sacral decubitus ulcer: Qualifiers: Pressure injury stage: stage 4 Qualified Code(s): L89.154 - Pressure ulcer of sacral region, stage 4 Code(s): L89.159 - Pressure ulcer of sacral region, unspecified stage Status: Acute Assessment and Plan: Chronic Wound consulted. Time Spent With Patient Time with patient: 25 - 35 minutes Subjective Date/time seen: 06/28/25 07:53 Interval history: 74-year-old male with a past medical history of neurogenic bladder with chronic indwelling Zheng catheter, paraplegia since 2023 after spinal surgery, chronic kidney disease, and decubitus ulcer who presented to the ER with increased confusion. Patient is pleasant lying comfortably in bed. He has no complaints at time of assessment denying chest pain, palpitations, shortness of breath, nausea/vomiting and abdominal pain. Patient states that he was receiving PT/OT at [place] prior to admission, pt/ot ordered. Review of Systems Review of Systems: All systems reviewed & are unremarkable except as noted in HPI and below Exam Narrative: AF HR 62 RR 14 SpO2 97 BP 118/63 General: male in no acute respiratory distress who is nontoxic appearing, lying semi recumbent in bed. HEENT: Normocephalic. Atraumatic. Extraocular movement intact. Sclera clear and anicteric. No facial asymmetry. Chest: Lungs are clear to auscultation bilaterally. No wheezes or crackles. CV: Heart was regular rate and rhythm. Abd: Abdomen was soft. Nontender. Nondistended. Positive bowel sounds. Zheng catheter in place with clear straw colored urine. Ext: No clubbing, cyanosis, or edema. DP pulses bilaterally. Neuro: Patient is alert and oriented x3. Speech is clear. Decreased sensation to BLE from prior spinal surgery. Objective Data Vital Signs Vital Signs: Vital Signs - 24 hr 06/27/25 08:15 06/27/25 11:32 06/27/25 14:00 Temperature 97.9 F 97.6 F Pulse Rate 72 Respiratory Rate 20 Blood Pressure 130/75 Pulse Oximetry 97 Oxygen Delivery Room Air 06/27/25 21:20 06/27/25 21:32 06/28/25 06:00 Temperature 99.4 F 97.7 F Pulse Rate 73 62 Respiratory Rate 16 14 Blood Pressure 125/61 118/63 Pulse Oximetry 94 97 Oxygen Delivery Room Air Intake/Output Intake/Output: Intake & Output 06/25/25 06/26/25 06/27/25 06/28/25 23:59 23:59 23:59 23:59 Intake Total 3050 1050 800 Output Total 500 2950 650 Balance 2550 -1900 150 Meds/Results Medications: Active Medications Generic Name Dose Route Start Last Admin Trade Name Freq PRN Reason Stop Dose Admin Acetaminophen 650 mg 06/28/25 00:47 Acetaminophen 325 Mg Tablet PO TID PRN Headache Apixaban 5 mg 06/27/25 09:00 06/27/25 21:20 Apixaban 5 Mg Tablet PO 5 mg Q12HR FENG Administration Collagenase 1 applic 06/27/25 09:00 06/27/25 08:13 Collagenase Oint 30 Gm Tube TOPICAL 1 applic DAILY FENG Administration Cyanocobalamin 1,000 mcg 06/27/25 09:00 06/27/25 08:14 Cyanocobalamin 1,000 Mcg Tablet PO 1,000 mcg DAILY FENG Administration Diclofenac Sodium 1 applic 06/27/25 06:07 Diclofenac Sodium 1% 100 Gm Gel (*Bkc) TOPICAL DAILY PRN pain Duloxetine HCl 30 mg 06/27/25 09:00 06/27/25 17:19 Duloxetine Hcl 30 Mg Capsule.Dr PO 30 mg BID FENG Administration Finasteride 5 mg 06/27/25 09:00 06/27/25 08:14 Finasteride 5 Mg Tablet PO 5 mg DAILY FENG Administration Gabapentin 800 mg 06/27/25 09:00 06/27/25 17:19 Gabapentin 400 Mg Capsule PO 800 mg TID FENG Administration Guaifenesin 600 mg 06/27/25 09:00 06/27/25 21:20 Guaifenesin 12 Hr 600 Mg Tabcr PO 600 mg Q12HR FENG Administration Piperacillin Sod/Tazobactam 50 mls @ 100 mls/hr 06/27/25 03:00 06/28/25 04:12 Sod 3.375 gm/ Sodium Chloride IVPB 100 mls/hr Q6H FENG Administration Lidocaine 1 patch 06/27/25 09:00 06/27/25 08:17 Lidocaine 5% Patch TRANSDERM 1 patch DAILY FENG Administration Methocarbamol 1,500 mg 06/27/25 09:00 06/27/25 21:20 Methocarbamol 750 Mg Tablet PO 1,500 mg QID FENG Administration Morphine Sulfate 2 mg 06/26/25 21:53 Morphine Sulfate (*Crx) 2 Mg/Ml Inj IV PUSH Q2H PRN Pain Rated 7-10 Oxycodone HCl 5 mg 06/27/25 06:07 Oxycodone Hcl (*Crx) 5 Mg Tab Ir PO Q4H PRN Pain 7-10 Pantoprazole Sodium 40 mg 06/27/25 09:00 06/27/25 08:14 Pantoprazole 40 Mg Tablet PO 40 mg DAILY FENG Administration Saccharomyces Boulardii 250 mg 06/27/25 09:00 06/27/25 08:15 Saccharomyces Boulardii 250 Mg Capsule PO 250 mg DAILY FENG Administration Tamsulosin HCl 0.4 mg 06/27/25 21:00 06/27/25 21:20 Tamsulosin Hcl 0.4 Mg Capsule PO 0.4 mg HS FENG Administration Vitamin D 25 mcg 06/27/25 09:00 06/27/25 08:13 Cholecalciferol (Vitamin D3) 25 Mcg (1,000 Units) Tablet PO 25 mcg DAILY FENG Administration Radiology Results: ITS Impressions Chest X-Ray 06/26/25 19:01 IMPRESSION: No focal infiltrate or effusion. Head CT 06/26/25 19:31 Impression: No acute intracranial hemorrhage or suspicious mass effect. Abdomen/Pelvis CT 06/26/25 20:21 IMPRESSION: Findings consistent with ascending urinary tract infection, as detailed above. Labs Labs: Laboratory Results - last 24 hr 06/27/25 06/27/25 06/28/25 09:14 11:41 05:43 WBC 7.0 6.3 RBC 3.36 L 3.30 L Hgb 8.3 L 8.3 L Hct 28.4 L 27.0 L MCV 84.5 81.8 MCH 24.7 L 25.2 L MCHC 29.2 L 30.7 L RDW 17.2 H 17.2 H Plt Count 233 252 MPV 8.8 9.3 Sodium 139 139 Potassium 3.4 3.6 Chloride 110 H 108 H Carbon Dioxide 21 L 22 Anion Gap 8 9 BUN 18 D 17 Creatinine 0.93 0.98 Estim Creat Clear Calc 67 64 Estimated GFR > 60 > 60 Glucose 135 H 112 H Calcium 8.7 9.0 Total Bilirubin 0.2 0.3 AST 17 23 ALT 13 17 Alkaline Phosphatase 66 69 Total Protein 5.4 L 5.5 L Albumin 2.9 L 2.9 L Nasal MRSA (PCR) Not detected Quality VTE Prophylaxis VTE prophylaxis: pharmacologic ordered (Continue home Eliquis.)
[2025-06-28] MEDS: guaiFENesin 12 HR 600 MG TABCR PO ×2 (09:15→20:53)
[2025-06-28] MEDS: PANTOPRAZOLE 40 MG TABLET PO (09:15)
[2025-06-28] MEDS: CHOLECALCIFEROL (VITAMIN D3) 25 MCG (1,000 UNITS) TABLET PO (09:15)
[2025-06-28] MEDS: CYANOCOBALAMIN 1,000 MCG TABLET 1000 MCG PO (09:15)
[2025-06-28] MEDS: APIXABAN 5 MG TABLET PO ×2 (09:15→20:52)
[2025-06-28] MEDS: SACCHAROMYCES BOULARDII 250 MG CAPSULE PO (09:16)
[2025-06-28] MEDS: GABAPENTIN 400 MG CAPSULE 800 MG PO ×3 (09:16→17:29)
[2025-06-28] MEDS: FINASTERIDE 5 MG TABLET PO (09:16)
[2025-06-28] MEDS: LIDOCAINE 5% PATCH 1 PATCH TRANSDERM (09:17)
[2025-06-28] MEDS: COLLAGENASE OINT 30 GM TUBE 1 APPLIC TOPICAL (09:18)
[2025-06-28 14:00] VITALS: BP 125/65; PULSE 64; RESP 20; TEMP 36.4; O2SAT 99
[2025-06-28] MEDS: oxyCODONE HCL (*CRX) 5 MG TAB IR PO (14:04)
[2025-06-28 20:45] VITALS: O2SAT 94
[2025-06-28] MEDS: TAMSULOSIN HCL 0.4 MG CAPSULE PO (20:52)
[2025-06-28 21:24] VITALS: BP 120/63; PULSE 67; RESP 14; TEMP 36.1; O2SAT 98
[2025-06-29] MEDS: PIPERACILLIN/TAZOBACTAM SOD 3.375 GM in SODIUM CHLORIDE 0.9% IV 50 ML 100 ML IVPB ×4 (03:05→20:19)
[2025-06-29 05:59] VITALS: BP 126/66; PULSE 64; RESP 14; TEMP 36.3; O2SAT 95
[2025-06-29 06:09] LABS: Hematocrit 27.6 % (42.0-52.0); Hemoglobin 8.4 g/dL (14.0-18.0); Mean Corpuscular HGB Conc 30.4 g/dl (32-36); Mean Corpuscular Hemoglobin 24.9 pg (26-34); Mean Corpuscular Volume 81.9 fl (80-100); Platelet Count Result 264 k/mm3 (150-375); Red Blood Count 3.37 M/mm3 (4.6-6.20); White Blood Count 6.5 K/mm3 (4.5-10.0)
[2025-06-29 06:46] LABS: Alanine Aminotransferase 30 U/L (6-50); Albumin Level 3.0 g/dL (3.5-5.1); Alkaline Phosphatase 71 U/L (38-126); Anion Gap 8 mmol/L (4-12); Aspartate Amino Transferase 29 U/L (17-59); Bilirubin,Total 0.4 mg/dL (0.2-1.3); Blood Urea Nitrogen 18 mg/dL (9-20); Calcium 8.9 mg/dL (8.4-10.2); Carbon Dioxide 22 mmol/L (22-30); Chloride 108 mmol/L (98-107); Estimated CRCL calculation 68 ml/min; Estimated Glomerular Filt Rate > 60; Glucose 104 mg/dL (65-110); Potassium 3.5 mmol/L (3.4-5.0); Sodium 138 mmol/L (137-145); Total Protein 5.5 g/dL (6.3-8.2)
--- NOTE | 2025-06-29 07:47 | PM.IMPN ---
Progress Note: A&P Assessment and Plan (1) Sepsis: Qualifiers: Sepsis acute organ dysfunction status: with acute organ dysfunction Sepsis type: sepsis due to unspecified organism Severe sepsis acute organ dysfunction type: encephalopathy Severe sepsis shock status: without septic shock Qualified Code(s): A41.9 - Sepsis, unspecified organism; R65.20 - Severe sepsis without septic shock; G93.41 - Metabolic encephalopathy Code(s): A41.9 - Sepsis, unspecified organism Status: Acute Assessment and Plan: Meets SIRS criteria: febrile (104.1), tachypneic, and leukocytosis - lactic acid: WNL - Received sepsis fluids - suspected source: pyelonephritis - blood cultures drawn on 06/26: NGTD - UA: cloudy appearance with 2+ protein, 3+ blood, 3+ leukocytes, > 100 RBC< > 100 WBC, 4+ bacteria - Urine culture obtained on 06/26: proteus mirabilis/penneri with sensitivities pending - CT abdomen/pelvis: Redemonstration of enhancing urothelial thickening along the bilateral ureters and collecting systems the bilateral kidneys, consistent with an ascending urinary tract infection, left greater than right. - CXR: unremarkable - Head CT obtained for acute confusion: unremarkable WBC remains WNL. Remains afebrile. See plan below. Resolved. (2) Acute metabolic encephalopathy: Code(s): G93.41 - Metabolic encephalopathy Status: Acute Assessment and Plan: Secondary to acute infection Currently AOx3 Head CT obtained for acute confusion: unremarkable Resolved See plan for pyelonephritis below (3) Pyelonephritis: Code(s): N12 - Tubulo-interstitial nephritis, not specified as acute or chronic Status: Acute Assessment and Plan: - UA: cloudy appearance with 2+ protein, 3+ blood, 3+ leukocytes, > 100 RBC< > 100 WBC, 4+ bacteria - Urine culture obtained on 06/26: proteus mirabilis/penneri with sensitivities pending - CT abdomen/pelvis: Redemonstration of enhancing urothelial thickening along the bilateral ureters and collecting systems the bilateral kidneys, consistent with an ascending urinary tract infection, left greater than right. - previous micro reviewed 08/05/21: Enterobacter cloacae resistant to augmentin and keflex 10/17/24, 10/21/24, 11/06/24: pseudomonas aeruginoas pansensitive 05/15/25: Enterobacter cloacae/asburia and group b strep resistant to augmentin and keflex - started on vancomycin and Zosyn on 06/27, MRSA negative DC vancomycin (4) Chronic indwelling Zheng catheter: Code(s): Z97.8 - Presence of other specified devices Status: Acute Assessment and Plan: Neurogenic bladder with chronic indwelling Zheng catheter Zheng catheter was exchanged 4 days ago. The patient's catheter was not exchanged in the ER as he has had a history in the past of difficulty replacing the catheter. (5) Sacral decubitus ulcer: Qualifiers: Pressure injury stage: stage 4 Qualified Code(s): L89.154 - Pressure ulcer of sacral region, stage 4 Code(s): L89.159 - Pressure ulcer of sacral region, unspecified stage Status: Acute Assessment and Plan: Chronic Wound consulted. (6) Left shoulder pain: Code(s): M25.512 - Pain in left shoulder Status: Acute Assessment and Plan: Patient states he was being boosted up in his wheelchair by nursing staff at the facility when he developed sharp pain to his left shoulder which has been ongoing for a few weeks. No swelling, erythema, edema, or warmth concerning for septic arthritis. Active ROM intact. Shoulder XR: Mild left glenohumeral joint osteoarthritis Scheduled outpatient MRI and nerve conduction study on 06/08 Unable to obtain an MRI at this time given spine stimulator Time Spent With Patient Time with patient: 25 - 35 minutes Subjective Date/time seen: 06/29/25 07:47 Interval history: 74-year-old male with a past medical history of neurogenic bladder with chronic indwelling Zheng catheter, paraplegia since 2023 after spinal surgery, chronic kidney disease, and decubitus ulcer who presented to the ER with increased confusion. Patient is pleasant sitting up comfortably in bed. He endorses ongoing left shoulder pain. Patient states he was being boosted up in his wheelchair by nursing staff at the facility when he developed sharp pain to his left shoulder which has been ongoing for a few weeks. Patient states he has a scheduled outpatient MRI and nerve conduction study on 06/08. Unable to obtain an MRI at this time given spine stimulator. Patient has no other complaints denying chest pain, palpitations, shortness of breath, nausea/vomiting and abdominal pain. Review of Systems Review of Systems: All systems reviewed & are unremarkable except as noted in HPI and below Exam Narrative: AF HR 64 RR 14 Spo2 95 BP 126/66 General: male in no acute respiratory distress who is nontoxic appearing, lying semi recumbent in bed. HEENT: Normocephalic. Atraumatic. Extraocular movement intact. Sclera clear and anicteric. No facial asymmetry. Chest: Lungs are clear to auscultation bilaterally. No wheezes or crackles. CV: Heart was regular rate and rhythm. Abd: Abdomen was soft. Nontender. Nondistended. Positive bowel sounds. Zheng catheter in place with clear straw colored urine. Ext: No clubbing, cyanosis, or edema. DP pulses bilaterally. Left shoulder pain with active ROM, no swelling, erythema, edema. Neuro: Patient is alert and oriented x3. Speech is clear. Decreased sensation to BLE from prior spinal surgery. Objective Data Vital Signs Vital Signs: Vital Signs - 24 hr 06/28/25 08:00 06/28/25 14:00 06/28/25 20:45 Temperature 97.5 F L Pulse Rate 64 Respiratory Rate 20 Blood Pressure 125/65 Pulse Oximetry 99 94 Oxygen Delivery Room Air Room Air 06/28/25 20:51 06/28/25 21:24 06/29/25 05:59 Temperature 97.0 F L 97.4 F L Pulse Rate 67 64 Respiratory Rate 14 14 Blood Pressure 120/63 126/66 Pulse Oximetry 98 95 Oxygen Delivery Room Air Intake/Output Intake/Output: Intake & Output 06/26/25 06/27/25 06/28/25 06/29/25 23:59 23:59 23:59 23:59 Intake Total 3050 1050 2020 750 Output Total 500 2950 2210 1175 Balance 2550 -1900 -190 -425 Meds/Results Medications: Active Medications Generic Name Dose Route Start Last Admin Trade Name Freq PRN Reason Stop Dose Admin Acetaminophen 650 mg 06/28/25 00:47 Acetaminophen 325 Mg Tablet PO TID PRN Headache Apixaban 5 mg 06/27/25 09:00 06/28/25 20:52 Apixaban 5 Mg Tablet PO 5 mg Q12HR FENG Administration Collagenase 1 applic 06/27/25 09:00 06/28/25 09:18 Collagenase Oint 30 Gm Tube TOPICAL 1 applic DAILY FENG Administration Cyanocobalamin 1,000 mcg 06/27/25 09:00 06/28/25 09:15 Cyanocobalamin 1,000 Mcg Tablet PO 1,000 mcg DAILY FENG Administration Diclofenac Sodium 1 applic 06/27/25 06:07 Diclofenac Sodium 1% 100 Gm Gel (*Bkc) TOPICAL DAILY PRN pain Duloxetine HCl 30 mg 06/27/25 09:00 06/28/25 17:29 Duloxetine Hcl 30 Mg Capsule.Dr PO 30 mg BID FENG Administration Finasteride 5 mg 06/27/25 09:00 06/28/25 09:16 Finasteride 5 Mg Tablet PO 5 mg DAILY FENG Administration Gabapentin 800 mg 06/27/25 09:00 06/28/25 17:29 Gabapentin 400 Mg Capsule PO 800 mg TID FENG Administration Guaifenesin 600 mg 06/27/25 09:00 06/28/25 20:53 Guaifenesin 12 Hr 600 Mg Tabcr PO 600 mg Q12HR FENG Administration Piperacillin Sod/Tazobactam 50 mls @ 100 mls/hr 06/27/25 03:00 06/29/25 03:05 Sod 3.375 gm/ Sodium Chloride IVPB 100 mls/hr Q6H FENG Administration Lidocaine 1 patch 06/27/25 09:00 06/28/25 09:17 Lidocaine 5% Patch TRANSDERM 1 patch DAILY FENG Administration Methocarbamol 1,500 mg 06/27/25 09:00 06/28/25 20:52 Methocarbamol 750 Mg Tablet PO 1,500 mg QID FENG Administration Morphine Sulfate 2 mg 06/26/25 21:53 Morphine Sulfate (*Crx) 2 Mg/Ml Inj IV PUSH Q2H PRN Pain Rated 7-10 Oxycodone HCl 5 mg 06/27/25 06:07 06/28/25 14:04 Oxycodone Hcl (*Crx) 5 Mg Tab Ir PO 5 mg Q4H PRN Administration Pain 7-10 Pantoprazole Sodium 40 mg 06/27/25 09:00 06/28/25 09:15 Pantoprazole 40 Mg Tablet PO 40 mg DAILY FENG Administration Saccharomyces Boulardii 250 mg 06/27/25 09:00 06/28/25 09:16 Saccharomyces Boulardii 250 Mg Capsule PO 250 mg DAILY FENG Administration Tamsulosin HCl 0.4 mg 06/27/25 21:00 06/28/25 20:52 Tamsulosin Hcl 0.4 Mg Capsule PO 0.4 mg HS FENG Administration Vitamin D 25 mcg 06/27/25 09:00 06/28/25 09:15 Cholecalciferol (Vitamin D3) 25 Mcg (1,000 Units) Tablet PO 25 mcg DAILY FENG Administration Radiology Results: ITS Impressions Chest X-Ray 06/26/25 19:01 IMPRESSION: No focal infiltrate or effusion. Head CT 06/26/25 19:31 Impression: No acute intracranial hemorrhage or suspicious mass effect. Abdomen/Pelvis CT 06/26/25 20:21 IMPRESSION: Findings consistent with ascending urinary tract infection, as detailed above. Labs Labs: Laboratory Results - last 24 hr 06/29/25 05:34 WBC 6.5 RBC 3.37 L Hgb 8.4 L Hct 27.6 L MCV 81.9 MCH 24.9 L MCHC 30.4 L RDW 17.1 H Plt Count 264 MPV 9.1 Sodium 138 Potassium 3.5 Chloride 108 H Carbon Dioxide 22 Anion Gap 8 BUN 18 Creatinine 0.92 Estim Creat Clear Calc 68 Estimated GFR > 60 Glucose 104 Calcium 8.9 Total Bilirubin 0.4 AST 29 ALT 30 Alkaline Phosphatase 71 Total Protein 5.5 L Albumin 3.0 L Quality VTE Prophylaxis VTE prophylaxis: pharmacologic ordered (Continue home Eliquis.)
[2025-06-29 08:00] VITALS: O2SAT 99
[2025-06-29] MEDS: GABAPENTIN 400 MG CAPSULE 800 MG PO ×3 (09:01→17:44)
[2025-06-29] MEDS: SACCHAROMYCES BOULARDII 250 MG CAPSULE PO (09:02)
[2025-06-29] MEDS: FINASTERIDE 5 MG TABLET PO (09:02)
[2025-06-29] MEDS: CHOLECALCIFEROL (VITAMIN D3) 25 MCG (1,000 UNITS) TABLET PO (09:02)
[2025-06-29] MEDS: CYANOCOBALAMIN 1,000 MCG TABLET 1000 MCG PO (09:02)
[2025-06-29] MEDS: guaiFENesin 12 HR 600 MG TABCR PO ×2 (09:03→20:16)
[2025-06-29] MEDS: PANTOPRAZOLE 40 MG TABLET PO (09:03)
[2025-06-29] MEDS: LIDOCAINE 5% PATCH 1 PATCH TRANSDERM (09:03)
[2025-06-29] MEDS: APIXABAN 5 MG TABLET PO ×2 (09:04→20:16)
[2025-06-29] MEDS: oxyCODONE HCL (*CRX) 5 MG TAB IR PO ×4 (09:25→22:12)
[2025-06-29] MEDS: COLLAGENASE OINT 30 GM TUBE 1 APPLIC TOPICAL (09:56)
--- NOTE | 2025-06-29 11:48 | PCOTNOTE ---
Spoke with Irene CORRESPONDENCE RENEW CLERK and pt. Pt is having L shoulder pain since incident at [place] a few weeks ago. Xray showing arthritis but pt has limited AROM of the shoulder. Pt states that he has pending nerve conduction test as well as an MRI scheduled as an OP in the next couple weeks. Pt is w/c bound and [place] uses a lift device to get pt to the chair. Pt has full use of RUE and is still able to feed himself and participate in grooming with RUE and set-up. Due to no formal diagnosis on shoulder and pending work-up still, pt has no further acute OT needs at this time due to being near baseline and having assist at [place] as needed.
[2025-06-29 14:00] VITALS: BP 114/60; PULSE 63; RESP 16; TEMP 36.5; O2SAT 99
[2025-06-29] MEDS: ACETAMINOPHEN 325 MG TABLET 650 MG PO (15:36)
[2025-06-29] MEDS: TAMSULOSIN HCL 0.4 MG CAPSULE PO (20:15)
[2025-06-29 21:15] VITALS: BP 108/61; PULSE 65; RESP 16; TEMP 36.2; O2SAT 99
[2025-06-30] MEDS: PIPERACILLIN/TAZOBACTAM SOD 3.375 GM in SODIUM CHLORIDE 0.9% IV 50 ML 100 ML IVPB ×4 (03:36→21:05)
[2025-06-30 06:00] VITALS: BP 124/79; PULSE 60; RESP 18; TEMP 36.6; O2SAT 100
[2025-06-30 06:29] LABS: Hematocrit 30.2 % (42.0-52.0); Hemoglobin 9.0 g/dL (14.0-18.0); Mean Corpuscular HGB Conc 29.8 g/dl (32-36); Mean Corpuscular Hemoglobin 24.5 pg (26-34); Mean Corpuscular Volume 82.1 fl (80-100); Platelet Count Result 281 k/mm3 (150-375); Red Blood Count 3.68 M/mm3 (4.6-6.20); White Blood Count 6.4 K/mm3 (4.5-10.0)
[2025-06-30 06:53] LABS: Alanine Aminotransferase 46 U/L (6-50); Albumin Level 3.0 g/dL (3.5-5.1); Alkaline Phosphatase 80 U/L (38-126); Anion Gap 6 mmol/L (4-12); Aspartate Amino Transferase 35 U/L (17-59); Bilirubin,Total 0.4 mg/dL (0.2-1.3); Blood Urea Nitrogen 18 mg/dL (9-20); Calcium 9.1 mg/dL (8.4-10.2); Carbon Dioxide 26 mmol/L (22-30); Chloride 107 mmol/L (98-107); Estimated CRCL calculation 66 ml/min; Estimated Glomerular Filt Rate > 60; Glucose 106 mg/dL (65-110); Potassium 3.7 mmol/L (3.4-5.0); Sodium 139 mmol/L (137-145); Total Protein 5.6 g/dL (6.3-8.2)
[2025-06-30 08:00] VITALS: O2SAT 100
[2025-06-30] MEDS: LIDOCAINE 5% PATCH 1 PATCH TRANSDERM (09:05)
[2025-06-30] MEDS: oxyCODONE HCL (*CRX) 5 MG TAB IR PO ×4 (09:06→22:47)
[2025-06-30] MEDS: guaiFENesin 12 HR 600 MG TABCR PO ×2 (09:07→21:04)
[2025-06-30] MEDS: GABAPENTIN 400 MG CAPSULE 800 MG PO ×3 (09:07→18:13)
[2025-06-30] MEDS: SACCHAROMYCES BOULARDII 250 MG CAPSULE PO (09:08)
[2025-06-30] MEDS: PANTOPRAZOLE 40 MG TABLET PO (09:09)
[2025-06-30] MEDS: CYANOCOBALAMIN 1,000 MCG TABLET 1000 MCG PO (09:10)
[2025-06-30] MEDS: CHOLECALCIFEROL (VITAMIN D3) 25 MCG (1,000 UNITS) TABLET PO (09:10)
[2025-06-30] MEDS: FINASTERIDE 5 MG TABLET PO (09:10)
[2025-06-30] MEDS: APIXABAN 5 MG TABLET PO ×2 (09:10→21:04)
--- NOTE | 2025-06-30 12:54 | P.PNIM_ITS ---
Progress Note: A&P Assessment and Plan (1) Sepsis: Qualifiers: Sepsis acute organ dysfunction status: with acute organ dysfunction Sepsis type: sepsis due to unspecified organism Severe sepsis acute organ dysfunction type: encephalopathy Severe sepsis shock status: without septic shock Qualified Code(s): A41.9 - Sepsis, unspecified organism; R65.20 - Severe sepsis without septic shock; G93.41 - Metabolic encephalopathy Code(s): A41.9 - Sepsis, unspecified organism Status: Acute Assessment and Plan: Meets SIRS criteria: febrile (104.1), tachypneic, and leukocytosis - lactic acid: WNL - Received sepsis fluids - suspected source: pyelonephritis - blood cultures drawn on 06/26: NGTD - UA: cloudy appearance with 2+ protein, 3+ blood, 3+ leukocytes, > 100 RBC< > 100 WBC, 4+ bacteria - Urine culture obtained on 06/26: proteus mirabilis/penneri with sensitivities pending - CT abdomen/pelvis: Redemonstration of enhancing urothelial thickening along the bilateral ureters and collecting systems the bilateral kidneys, consistent with an ascending urinary tract infection, left greater than right. - CXR: unremarkable - Head CT obtained for acute confusion: unremarkable WBC remains WNL. Remains afebrile. See plan below. Resolved. (2) Acute metabolic encephalopathy: Code(s): G93.41 - Metabolic encephalopathy Status: Acute Assessment and Plan: Secondary to acute infection Currently AOx3 Head CT obtained for acute confusion: unremarkable Resolved See plan for pyelonephritis below (3) Pyelonephritis: Code(s): N12 - Tubulo-interstitial nephritis, not specified as acute or chronic Status: Acute Assessment and Plan: - UA: cloudy appearance with 2+ protein, 3+ blood, 3+ leukocytes, > 100 RBC< > 100 WBC, 4+ bacteria - Urine culture obtained on 06/26: proteus mirabilis/penneri with sensitivities pending - CT abdomen/pelvis: Redemonstration of enhancing urothelial thickening along the bilateral ureters and collecting systems the bilateral kidneys, consistent with an ascending urinary tract infection, left greater than right. - previous micro reviewed 08/05/21: Enterobacter cloacae resistant to Augmentin and Keflex 10/17/24, 10/21/24, 11/06/24: pseudomonas aeruginoas pansensitive 05/15/25: Enterobacter cloacae/asburia and group b strep resistant to augmen tin and keflex - started on vancomycin and Zosyn on 06/27, MRSA negative DC vancomycin Urine culture sensitivities pending. Given patients prior resistance, chronic fonseca catheter and the proteus which he has not previously grown he remains inpatient pending cultures. Patient agreeable with staying inpatient at this time. (4) Chronic indwelling Fonseca catheter: Code(s): Z97.8 - Presence of other specified devices Status: Acute Assessment and Plan: Neurogenic bladder with chronic indwelling Fonseca catheter Fonseca catheter was exchanged 4 days ago. The patient's catheter was not exchanged in the ER as he has had a history in the past of difficulty replacing the catheter. (5) Sacral decubitus ulcer: Qualifiers: Pressure injury stage: stage 4 Qualified Code(s): L89.154 - Pressure ulcer of sacral region, stage 4 Code(s): L89.159 - Pressure ulcer of sacral region, unspecified stage Status: Acute Assessment and Plan: Chronic Sacral pressure ulcer that is well healing with yellow slough. Wound consulted, continue dressing changes. (6) Left shoulder pain: Code(s): M25.512 - Pain in left shoulder Status: Acute Assessment and Plan: Patient states he was being boosted up in his wheelchair by nursing staff at the facility when he developed sharp pain to his left shoulder which has been ongoing for a few weeks. No swelling, erythema, edema, or warmth concerning for septic arthritis. Active ROM intact. Shoulder XR: Mild left glenohumeral joint osteoarthritis Scheduled outpatient MRI and nerve conduction study on 06/08 Unable to obtain an MRI at this time given spine stimulator Time Spent With Patient Time with patient: 25 - 35 minutes Subjective Date/time seen: 06/30/25 12:54 Interval history: 74-year-old male with a past medical history of neurogenic bladder with chronic indwelling Fonseca catheter, paraplegia since 2023 after spinal surgery, chronic kidney disease, and decubitus ulcer who presented to the ER with increased confusion. Patient is pleasant sitting up comfortably in bed. Patient has no complaints denying chest pain, palpitations, shortness of breath, nausea/vomiting and abdominal pain. Urine culture sensitivities pending. Given patients prior resistance, chronic fonseca catheter and the proteus which he has not previously grown he remains inpatient pending cultures. Patient agreeable with staying inpatient at this time. Review of Systems Review of Systems: All systems reviewed & are unremarkable except as noted in HPI and below Exam Narrative: AF HR 60 RR 18 SpO2 100 BP 124/79 General: male in no acute respiratory distress who is nontoxic appearing, lying semi recumbent in bed. HEENT: Normocephalic. Atraumatic. Extraocular movement intact. Sclera clear and anicteric. No facial asymmetry. Chest: Lungs are clear to auscultation bilaterally. No wheezes or crackles. CV: Heart was regular rate and rhythm. Abd: Abdomen was soft. Nontender. Nondistended. Positive bowel sounds. Fonseca catheter in place with clear straw colored urine. Ext: Slight left shoulder pain with active ROM, no swelling, erythema, edema. Skin: Sacral pressure ulcer that is well healing with yellow slough. Neuro: Patient is alert and oriented x3. Speech is clear. Decreased sensation to BLE from prior spinal surgery. Objective Data Vital Signs Vital Signs: Vital Signs - 24 hr 06/29/25 14:00 06/29/25 21:15 06/30/25 06:00 Temperature 97.7 F 97.2 F L 97.8 F Pulse Rate 63 65 60 Respiratory Rate 16 16 18 Blood Pressure 114/60 108/61 124/79 Pulse Oximetry 99 99 100 Intake/Output Intake/Output: Intake & Output 06/27/25 06/28/25 06/29/25 06/30/25 23:59 23:59 23:59 23:59 Intake Total 1050 2020 1670 830 Output Total 2950 2210 2500 750 Balance -1900 -190 -830 80 Meds/Results Medications: Active Medications Generic Name Dose Route Start Last Admin Trade Name Freq PRN Reason Stop Dose Admin Acetaminophen 650 mg 06/28/25 00:47 06/29/25 15:36 Acetaminophen 325 Mg Tablet PO 650 mg TID PRN Administration Headache Apixaban 5 mg 06/27/25 09:00 06/30/25 09:10 Apixaban 5 Mg Tablet PO 5 mg Q12HR FENG Administration Collagenase 1 applic 06/27/25 09:00 06/29/25 09:56 Collagenase Oint 30 Gm Tube TOPICAL 1 applic DAILY FENG Administration Cyanocobalamin 1,000 mcg 06/27/25 09:00 06/30/25 09:10 Cyanocobalamin 1,000 Mcg Tablet PO 1,000 mcg DAILY FENG Administration Diclofenac Sodium 1 applic 06/27/25 06:07 Diclofenac Sodium 1% 100 Gm Gel (*Bkc) TOPICAL DAILY PRN pain Duloxetine HCl 30 mg 06/27/25 09:00 06/30/25 09:07 Duloxetine Hcl 30 Mg Capsule.Dr PO 30 mg BID FENG Administration Finasteride 5 mg 06/27/25 09:00 06/30/25 09:10 Finasteride 5 Mg Tablet PO 5 mg DAILY FENG Administration Gabapentin 800 mg 06/27/25 09:00 06/30/25 09:07 Gabapentin 400 Mg Capsule PO 800 mg TID FENG Administration Guaifenesin 600 mg 06/27/25 09:00 06/30/25 09:07 Guaifenesin 12 Hr 600 Mg Tabcr PO 600 mg Q12HR FENG Administration Piperacillin Sod/Tazobactam 50 mls @ 100 mls/hr 06/27/25 03:00 06/30/25 09:05 Sod 3.375 gm/ Sodium Chloride IVPB 100 mls/hr Q6H FENG Administration Lidocaine 1 patch 06/27/25 09:00 06/30/25 09:05 Lidocaine 5% Patch TRANSDERM 1 patch DAILY FENG Administration Methocarbamol 1,500 mg 06/27/25 09:00 06/30/25 09:07 Methocarbamol 750 Mg Tablet PO 1,500 mg QID FENG Administration Morphine Sulfate 2 mg 06/26/25 21:53 Morphine Sulfate (*Crx) 2 Mg/Ml Inj IV PUSH Q2H PRN Pain Rated 7-10 Oxycodone HCl 5 mg 06/27/25 06:07 06/30/25 09:06 Oxycodone Hcl (*Crx) 5 Mg Tab Ir PO 5 mg Q4H PRN Administration Pain 7-10 Pantoprazole Sodium 40 mg 06/27/25 09:00 06/30/25 09:09 Pantoprazole 40 Mg Tablet PO 40 mg DAILY FENG Administration Saccharomyces Boulardii 250 mg 06/27/25 09:00 06/30/25 09:08 Saccharomyces Boulardii 250 Mg Capsule PO 250 mg DAILY FENG Administration Tamsulosin HCl 0.4 mg 06/27/25 21:00 06/29/25 20:15 Tamsulosin Hcl 0.4 Mg Capsule PO 0.4 mg HS FENG Administration Vitamin D 25 mcg 06/27/25 09:00 06/30/25 09:10 Cholecalciferol (Vitamin D3) 25 Mcg (1,000 Units) Tablet PO 25 mcg DAILY FENG Administration Radiology Results: ITS Impressions Chest X-Ray 06/26/25 19:01 IMPRESSION: No focal infiltrate or effusion. Head CT 06/26/25 19:31 Impression: No acute intracranial hemorrhage or suspicious mass effect. Abdomen/Pelvis CT 06/26/25 20:21 IMPRESSION: Findings consistent with ascending urinary tract infection, as detailed above. Shoulder X-Ray 06/29/25 09:14 Impression: 1: Mild left glenohumeral joint osteoarthritis. Labs Labs: Laboratory Results - last 24 hr 06/30/25 06:02 WBC 6.4 RBC 3.68 L Hgb 9.0 L Hct 30.2 L MCV 82.1 MCH 24.5 L MCHC 29.8 L RDW 17.0 H Plt Count 281 MPV 9.0 Sodium 139 Potassium 3.7 Chloride 107 Carbon Dioxide 26 Anion Gap 6 BUN 18 Creatinine 0.94 Estim Creat Clear Calc 66 Estimated GFR > 60 Glucose 106 Calcium 9.1 Total Bilirubin 0.4 AST 35 ALT 46 Alkaline Phosphatase 80 Total Protein 5.6 L Albumin 3.0 L Quality VTE Prophylaxis VTE prophylaxis: pharmacologic ordered (Continue home Eliquis.)
[2025-06-30 14:00] VITALS: BP 149/74; PULSE 63; RESP 18; TEMP 37; O2SAT 100
[2025-06-30] MEDS: COLLAGENASE OINT 30 GM TUBE 1 APPLIC TOPICAL (14:06)
[2025-06-30] MEDS: MORPHINE SULFATE (*CRX) 2 MG/ML INJ IV PUSH (14:13)
[2025-06-30] MEDS: ACETAMINOPHEN 325 MG TABLET 650 MG PO (18:14)
[2025-06-30] MEDS: TAMSULOSIN HCL 0.4 MG CAPSULE PO (21:04)
[2025-06-30 21:28] VITALS: BP 103/62; PULSE 67; RESP 18; TEMP 36.5; O2SAT 100
[2025-06-30 21:29] VITALS: PULSE 65; RESP 20; O2SAT 96
[2025-07-01] MEDS: oxyCODONE HCL (*CRX) 5 MG TAB IR PO ×4 (02:51→17:03)
[2025-07-01] MEDS: PIPERACILLIN/TAZOBACTAM SOD 3.375 GM in SODIUM CHLORIDE 0.9% IV 50 ML 100 ML IVPB ×3 (02:52→14:47)
[2025-07-01 06:00] VITALS: BP 111/68; PULSE 58; RESP 16; TEMP 37; O2SAT 98
[2025-07-01 06:37] LABS: Hematocrit 28.6 % (42.0-52.0); Hemoglobin 8.6 g/dL (14.0-18.0); Mean Corpuscular HGB Conc 30.1 g/dl (32-36); Mean Corpuscular Hemoglobin 25.0 pg (26-34); Mean Corpuscular Volume 83.1 fl (80-100); Platelet Count Result 295 k/mm3 (150-375); Red Blood Count 3.44 M/mm3 (4.6-6.20); White Blood Count 6.6 K/mm3 (4.5-10.0)
[2025-07-01 06:52] LABS: Alanine Aminotransferase 39 U/L (6-50); Albumin Level 3.0 g/dL (3.5-5.1); Alkaline Phosphatase 71 U/L (38-126); Anion Gap 5 mmol/L (4-12); Aspartate Amino Transferase 25 U/L (17-59); Bilirubin,Total 0.3 mg/dL (0.2-1.3); Blood Urea Nitrogen 20 mg/dL (9-20); Calcium 8.8 mg/dL (8.4-10.2); Carbon Dioxide 25 mmol/L (22-30); Chloride 107 mmol/L (98-107); Estimated CRCL calculation 66 ml/min; Estimated Glomerular Filt Rate > 60; Glucose 106 mg/dL (65-110); Potassium 3.8 mmol/L (3.4-5.0); Sodium 137 mmol/L (137-145); Total Protein 5.5 g/dL (6.3-8.2)
[2025-07-01] MEDS: FINASTERIDE 5 MG TABLET PO (08:38)
[2025-07-01] MEDS: GABAPENTIN 400 MG CAPSULE 800 MG PO ×3 (08:39→16:58)
[2025-07-01] MEDS: APIXABAN 5 MG TABLET PO (08:39)
[2025-07-01] MEDS: PANTOPRAZOLE 40 MG TABLET PO (08:39)
[2025-07-01] MEDS: CYANOCOBALAMIN 1,000 MCG TABLET 1000 MCG PO (08:39)
[2025-07-01] MEDS: SACCHAROMYCES BOULARDII 250 MG CAPSULE PO (08:39)
[2025-07-01] MEDS: CHOLECALCIFEROL (VITAMIN D3) 25 MCG (1,000 UNITS) TABLET PO (08:39)
[2025-07-01] MEDS: guaiFENesin 12 HR 600 MG TABCR PO (08:39)
[2025-07-01] MEDS: COLLAGENASE OINT 30 GM TUBE 1 APPLIC TOPICAL (08:40)
[2025-07-01] MEDS: LIDOCAINE 5% PATCH 1 PATCH TRANSDERM (08:56)
--- NOTE | 2025-07-01 12:06 | P.DS_ITS ---
DS: Admitting Diagnosis Discharge Date 07/01/2025 Admitting Diagnosis Sepsis Acute metabolic encephalopathy Pyelonephritis Chronic fonseca sacral decubitus ulcer shoulder pain DS: Discharge Diagnosis Discharge Diagnosis (1) Sepsis: Qualifiers: Sepsis acute organ dysfunction status: with acute organ dysfunction Sepsis type: sepsis due to unspecified organism Severe sepsis acute organ dysfunction type: encephalopathy Severe sepsis shock status: without septic shock Qualified Code(s): A41.9 - Sepsis, unspecified organism; R65.20 - Severe sepsis without septic shock; G93.41 - Metabolic encephalopathy Code(s): A41.9 - Sepsis, unspecified organism Status: Acute (2) Acute metabolic encephalopathy: Code(s): G93.41 - Metabolic encephalopathy Status: Acute (3) Pyelonephritis: Code(s): N12 - Tubulo-interstitial nephritis, not specified as acute or chronic Status: Acute (4) Chronic indwelling Fonseca catheter: Code(s): Z97.8 - Presence of other specified devices Status: Acute (5) Sacral decubitus ulcer: Qualifiers: Pressure injury stage: stage 4 Qualified Code(s): L89.154 - Pressure ulcer of sacral region, stage 4 Code(s): L89.159 - Pressure ulcer of sacral region, unspecified stage Status: Acute (6) Left shoulder pain: Code(s): M25.512 - Pain in left shoulder Status: Acute DS: Summary Hospital Course Reason for hospitalization: Sepsis Acute metabolic encephalopathy Pyelonephritis Chronic fonseca sacral decubitus ulcer shoulder pain Hospital Course: 74-year-old male with a past medical history of neurogenic bladder with chronic indwelling Fonseca catheter, paraplegia since 2023 after spinal surgery, chronic kidney disease, and decubitus ulcer who presented to the hospital with increased confusion. Meeting sepsis criteria on admission with fever (104.1), tachypneic, and leukocytosis. Given sepsis fluids. Blood cultures NGTD. CXR unremarkable. Head CT obtained as patient was noted to be confused and was unremarkable. UA concerning for infection. CT abdomen/pelvis showed redemonstration of enhancing urothelial thickening along the bilateral ureters and collecting systems the bilateral kidneys, consistent with an ascending urinary tract infection, left greater than right. Patient started on IV antibiotics for UTI with pyelonephritis. Patient has a chronic fonseca which was exchanged 4 days prior to admission. Urine culture grew proteus mirabilis/penneri. Patient transitioned to oral antibiotics per culture sensitivities on discharge to complete the course. Patient has a chronic sacral decubitus pressure ulcer that is well healing. Evaluated by wound therapy. Continue treated per wound recommendations. During admission patient endorsed left shoulder pain. He states that prior to admission he was being boosted up in his wheelchair by nursing staff at the facility when he developed sharp pain to his left shoulder which has been ongoing for a few weeks. No swelling, erythema, edema, or warmth concerning for septic arthritis. Active ROM intact. Shoulder XR showed mild left glenohumeral joint osteoarthritis. Patient stated he has a scheduled outpatient MRI and nerve conduction study on 06/08. Unable to obtain an MRI at this time given spine stimulator. Patient had no complaints at of discharge denying chest pain, shortness a breath, palpitations, nausea/vomiting, and abdominal pain. Patient discharged back to [facility] in a stable condition. He is to follow-up with his primary care provider in 1 week. Status at Discharge Functional status at discharge: wheelchair bound Time Spent with Patient Time attestation: Total time spent providing and/or coordinating discharge services: Time spent: Greater than 30 minutes Exam Narrative: AF HR 58 RR 16 SpO2 98 BP 111/68 General: male in no acute respiratory distress who is nontoxic appearing, lying semi recumbent in bed. HEENT: Normocephalic. Atraumatic. Extraocular movement intact. Sclera clear and anicteric. No facial asymmetry. Chest: Lungs are clear to auscultation bilaterally. No wheezes or crackles. CV: Heart was regular rate and rhythm. Abd: Abdomen was soft. Nontender. Nondistended. Positive bowel sounds. Fonseca catheter in place with clear straw colored urine. Neuro: Patient is alert. DS: Data Data Completed and Pending Completed studies during hospitalization: shoulder xr abdomen/pelvis ct head ct chest xr Labs on day of discharge: Labs from last 24 hours 07/01/25 06:00 WBC 6.6 RBC 3.44 L Hgb 8.6 L Hct 28.6 L MCV 83.1 MCH 25.0 L MCHC 30.1 L RDW 17.0 H Plt Count 295 MPV 9.0 Sodium 137 Potassium 3.8 Chloride 107 Carbon Dioxide 25 Anion Gap 5 BUN 20 Creatinine 0.95 Estim Creat Clear Calc 66 Estimated GFR > 60 Glucose 106 Calcium 8.8 Total Bilirubin 0.3 AST 25 ALT 39 Alkaline Phosphatase 71 Total Protein 5.5 L Albumin 3.0 L Preliminary micro results at discharge 06/26/25 20:56 Blood Culture - Preliminary Blood 06/26/25 20:57 Blood Culture - Preliminary Blood Discharge Plan Discharge Attending physician on discharge: Alberto Davalos Consulting providers: Cecelia Ott Discharging Clinician: Cecelia Ott Anticipated Discharge Date/Time: 07/01/25 12:00 Patient Disposition: SNF Activity: as tolerated Diet: as tolerated Discharge Instructions: Discharge disposition: Patient admitted to the hospital for pyelonephritis (kidney infection) Take all medications as prescribed even if feeling better Augmentin twice a day, course is to start tonight and to be completed on 07/07 Attached is information on this medication Eat well balanced meals and stay hydrated Keep active to remain strong Avoid use of diapers or pads Good alexey Care every 2 hours Trend urine output Continue to treat the chronic pressure ulcer with Santyl ointment then lightly fill depth and undermining with dry gauze and cover with an abd pad Monitor for signs of infection including redness, pain, drainage, warmth Keep scheduled outpatient MRI and nerve conduction study on 06/08 for left shoulder pain XR only showing osteoarthritis Monitor blood pressures Take caution while standing, rising, or moving Change positions slowly taking a break between each position change If you standing feel dizzy sit back down and take a break Encouraged to continue with yearly vaccinations Return to the emergency department if he developed sudden shortness of breath, chest pain, nausea, vomiting, upset stomach or intractable diarrhea Return to the emergency department if you develop fever greater than 100.5 Follow-up with the primary care physician within 1-2 weeks Thank you for choosing [facility] for your healthcare needs Patient Instructions: Amoxicillin/Clavulanate Potassium (By mouth), Apixaban (By mouth), Urinary Tract Infection in Men (DC), Fonseca Catheter Placement and Care (DC), Kidney Infection (DC) Patient Language: Sinhala Stand Alone Forms: General Discharge Information Follow-up/Referrals: Marcelino,MD Sj [Primary Care Provider] - 1 Week Discharge Medications: New amoxicillin-pot clavulanate 875-125 mg tablet 1 tablet PO Q12H Qty: 10 0RF Continued duloxetine 30 mg capsule,delayed release(DR/EC) 30 mg PO BID gabapentin 300 mg capsule 800 mg PO TID methocarbamol 750 mg tablet 1,500 mg PO QID Rx Instructions: two 750mg tabs to equal 1,500mg total dose pantoprazole 40 mg tablet,delayed release (DR/EC) 40 mg PO DAILY diclofenac sodium [Aspercreme Arthritis Pain] 1 % gel 2 g topical DAILY PRN (Reason: pain) Rx Instructions: apply to single elbow, wrist or hand; for hand includes palm/fingers/back of hand Gurpreet (with collagen) 7-7-1.5 gram powder in packet 1 packet PO BID Rx Instructions: mix 1 packet with 8-10 oz liquid Santyl 250 unit/gram ointment 1 applic topical DAILY guaifenesin [Mucinex] 600 mg tablet extended release 12hr 600 mg PO BID cholecalciferol (vitamin D3) 25 mcg (1,000 unit) capsule 25 mcg PO DAILY cyanocobalamin (vitamin B-12) 1,000 mcg capsule 1,000 mcg PO DAILY naloxone 0.4 mg/mL syringe 0.4 mg IM Q2M PRN (Reason: opioid reversal) Rx Instructions: NTExceed 10 mg total dose/episode lidocaine [Lidocaine Pain Relief] 4 % Adhesive Patch,Medicated 1 patch transdermal Q12H oxycodone 5 mg Tablet 5 mg PO Q4H PRN (Reason: Pain) acetaminophen 500 mg 2 tablet BYMOUTH TID Florastor 250 mg capsule 1 cap PO DAILY tamsulosin 0.4 mg capsule 0.4 mg PO HS Qty: 30 0RF finasteride 5 mg tablet 5 mg PO DAILY Qty: 30 0RF apixaban 5 mg Tablet 5 mg PO BID Qty: 60 0RF Date of admission: 06/26/25 21:53 Primary Care Provider: MarcelinoSj Admitting Provider: Joi Aranda Attending physician on admission: Joi Aranda Condition: Stable Hospitalist MIPS Heart Failure (Exclusion) Patient has history of Heart Transplant or Left Ventricular Assistive Device?: No IF YES, STOP HERE Heart Failure (Qualifier) Patient has current or prior documentation of LVEF less than or equal to 40%, or mod/servere depressed LVSF?: No IF NO, STOP HERE
[2025-07-01 14:00] VITALS: BP 114/56; PULSE 64; RESP 20; TEMP 36.2; O2SAT 100
== END 2025-07-01 17:05 | DRG 871 ==
LOC: ANHED 21:52 → ANH3MEDSUR 06-27 06:24
PROVIDERS: Student in an Organized Health Care Education/Training Program; Admitting Provider Internal Medicine; Emergency Provider Physician Assistant; PCP Family Medicine; Visit Provider Internal Medicine
DX: A41.9 Sepsis, unspecified organism (principal); G93.41 Metabolic encephalopathy; L89.153 Pressure ulcer of sacral region, stage 3; N12 Tubulo-interstitial nephritis, not specified as acute or chronic; G82.22 Paraplegia, incomplete; N18.9 Chronic kidney disease, unspecified; N31.9 Neuromuscular dysfunction of bladder, unspecified; E78.5 Hyperlipidemia, unspecified; R65.20 Severe sepsis without septic shock; N40.0 Benign prostatic hyperplasia without lower urinary tract symptoms; M25.512 Pain in left shoulder; Z20.822 Contact with and (suspected) exposure to COVID-19; Q06.8 Other specified congenital malformations of spinal cord; Z86.718 Personal history of other venous thrombosis and embolism; Z79.01 Long term (current) use of anticoagulants; Z85.51 Personal history of malignant neoplasm of bladder; Z96.82 Presence of neurostimulator
CPT/HCPCS: 36415; 70450; 71045; 73030; 74177; 80053; 81001; 82550; 82565; 83605; 83690; 84484; 85025; 85027; 85610; 85730; 87040; 87086; 87637; 87641; 93005; 96374; 99285; A9270; J2270; J2543; J3373; J7030; Q9967

== ENCOUNTER 2025-10-24 09:55 | Inpatient (IN) | payer MEDICARE, BC, SELFPAY ==
[2025-10-24] VITALS (17 sets, daily range): BP systolic 96–128; BP diastolic 59–77; PULSE 75–87; RESP 14–29; TEMP 35.6–38.3; O2SAT 96–100; BMI 31.4
--- NOTE | 2025-10-24 10:01 | ECG_ITS ---
Test Date: 2025-10-24 10:17:15 Measurements Intervals [place] Rate: 84 P: -1 OR: 179 QRS: 73 QRSD: 99 T: 64 QT: 349 QTc: 414 Interpretive Statements SINUS RHYTHM BASELINE ARTIFACT- AVL, V1-V2 NORMAL ECG Compared to ECG 06/26/2025 17:52:11 No significant changes Electronically Signed On 10-24-2025 10:45:04 UROLOGY PHYSICIAN by David Murrell D.O.
--- NOTE | 2025-10-24 10:02 | ED.AMS ---
HPI - Altered Mental Status General Chief Complaint: Altered Mental Status Stated Complaint: AMS Time Seen by Provider: 10/24/25 10:00 History of Present Illness HPI narrative: 75-year-old male history of CKD, neurogenic bladder with chronic indwelling Zheng, HLD, paraplegia since 2023 after spinal surgery follow-up. DVT on Eliquis, presents to the ER via [facility] for evaluation of altered mental status. EMS states patient has been slower to respond and hearing more lethargic. Also reports pink tinged blood in his urinary catheter. Patient reportedly he was treated for UTI 3 weeks ago. Related Data Home Medications ?Medication ?Instructions ?Recorded ?Confirmed ?Last Taken ?Type Florastor 1 cap PO DAILY 10/14/24 06/27/25 Unknown History acetaminophen 2 tablet BYMOUTH TID Pain 10/14/24 06/27/25 10/14/24 09:52 History 1000 mg duloxetine 30 mg capsule,delayed 30 mg PO BID 12/04/24 06/27/25 Unknown History release gabapentin 300 mg capsule 800 mg PO TID 12/04/24 06/27/25 Unknown History arginine 7 gram-glutam 7 1 packet PO BID 06/27/25 06/27/25 Unknown History gram-CaHMB 1.5 [id number]-ge-min oral pwd pkt (Gurpreet (with collagen)) cholecalciferol (vitamin D3) 25 25 mcg PO DAILY 06/27/25 06/27/25 Unknown History mcg (1,000 unit) capsule collagenase clostridium histo. 250 1 applic topical DAILY 06/27/25 06/27/25 Unknown History unit/gram topical ointment (Santyl) cyanocobalamin (vitamin B-12) 1,000 mcg PO DAILY 06/27/25 06/27/25 Unknown History 1,000 mcg capsule diclofenac sodium 1 % topical gel 2 g topical DAILY PRN pain 06/27/25 06/27/25 Unknown History (Aspercreme Arthritis Pain) guaifenesin 600 mg tablet, 600 mg PO BID 06/27/25 06/27/25 Unknown History extended release 12 hr (Mucinex) lidocaine 4 % topical patch 1 patch transdermal Q12H 06/27/25 06/27/25 Unknown History (Lidocaine Pain Relief) methocarbamol 750 mg tablet 1,500 mg PO QID 06/27/25 06/27/25 Unknown History naloxone 0.4 mg/mL injection 0.4 mg IM Q2M PRN opioid reversal 06/27/25 06/27/25 Unknown History syringe oxycodone 5 mg tablet 5 mg PO Q4H PRN Pain 06/27/25 06/27/25 Unknown History pantoprazole 40 mg tablet,delayed 40 mg PO DAILY 06/27/25 06/27/25 Unknown History release Allergies Allergy/AdvReac Type Severity Reaction Status Date / Time Sulfa (Sulfonamide Allergy Unknown Unknown Verified 10/14/24 15:51 Antibiotics) Review of Systems Review of Systems: All systems reviewed & are unremarkable except as noted in HPI and below PMFSH Past Medical History Medical History (Updated 10/24/25 @ 12:22 by Candido Daniels, TRAVEL RN OR) Sacral decubitus ulcer Right leg DVT Chronic anemia Tethered spinal cord Benign prostatic hyperplasia Chronic kidney disease Neurogenic bladder Neurogenic bowel, not elsewhere classified Paraplegia, incomplete Thoracic myelopathy Bladder stones Bladder cancer Requiring excision of tumor Surgical History Surgical History Spinal cord stimulator status History of bladder surgery excision of bladder tumor History of back surgery (10/02/24) posterior lumbar thoracic spinal fusion with instrumentation, 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 given compression of thoracic myelopathy at [facility] Family History Family History Father Acute myocardial infarction, Onset Age: 57 Patient's father is Mother Patient's mother is Unknown Family history not known due to adoption Social History Social History (Updated 06/27/25 @ 06:10 by Joi Aranda DO) Social History: Surrogate medical decision maker: Gricelda Delgado, spouse. Code status: Full code. Smoking status: Never smoker Second hand tobacco smoke exposure: No Alcohol intake: never Substance use: never Substance use type: does not use Lack of Transportation: No Lack of Food: Never True Current Housing: I Have Housing Concerned About Future Housing: No Difficulty Paying Gas/Electric Bills: No Difficulty Paying for Meds: No Currently Unemployed: No Education: High School Diploma/GED Difficulty w/ Childcare or Family Care: No Living arrangements: with family Additional living arrangements comments: The patient is . He used to live in [place] with his but is now in [place]. They have 3 children. Occupation/Education: retired Additional occupation/education comments: [employer] Spiritual care concerns: No Exam Const: General: healthy appearing Resp: Effort & Inspection: normal respiratory effort Cardio: Rate: regular rate Rhythm: regular rhythm GI: Other: Lower abdominal distension Urinary Catheter: Urinary Catheter: patent and draining and urine pink Skin: General skin exam: normal color Neuro: General: patient oriented x3 Other: Answering all questions appropriately. So respond hearing moving upper extremities spontaneously. Chronic paralysis to lower extremities unchanged from baseline Psych: Mental Status: mental status grossly normal Course Vital Signs Vital signs: Vital Signs Pulse Rate 87 10/24/25 09:55 Respiratory Rate 20 10/24/25 09:55 Blood Pressure 122/72 10/24/25 09:55 Pulse Oximetry 100 10/24/25 09:55 Oxygen Delivery Room Air 10/24/25 09:55 Temperature 38.3 C H 10/24/25 11:51 Pulse Rate 78 10/24/25 12:31 Respiratory Rate 21 H 10/24/25 12:31 Blood Pressure 102/70 10/24/25 12:31 Pulse Oximetry 98 10/24/25 12:31 Oxygen Delivery Room Air 10/24/25 10:46 MDM MDM Narrative Medical decision making narrative: In summary: 75-year-old male presents to the ER from a nursing facility evaluation of altered mental status. Patient had a urodynamic study performed 8 days ago, and was placed on 1 dose of Cipro. Who EMS stated patient began experiencing altered mental status this morning with noticeable pink-colored hematuria in his catheter. Patient was found have 750 mL of urine per bladder scanner. A Zheng was exchanged, and over 700 mL of hematuria was collected with no obvious clots WBC 21, creatinine 1.34, UA: +# blood, +2 leukocytes, +3 urine bacteria. Discussed case with Urology, they do not recommend of imaging or bladder irrigation at this time. 1 g of Rocephin was started he following blood culture collection. Plan is to admit patient for further of IV antibiotics and fluid. Differential Diagnosis Differential Diagnosis: Urinary tract infection, urosepsis, PILAR, kidney stone, pyelonephritis Lab Data 10/24/25 10:16 10/24/25 10:16 Labs: Lab Results 10/24/25 10/24/25 10/24/25 Range/Units 10:15 10:16 10:44 WBC 21.9 H (4.5-10.0) K/mm3 RBC 4.85 (4.6-6.20) M/mm3 Hgb 13.3 L D (14.0-18.0) g/dL Hct 42.1 (42.0-52.0) % MCV 86.8 (80-100) fl MCH 27.4 (26-34) pg MCHC 31.6 L (32-36) g/dl RDW 15.4 H (11.5-14.5) % Plt Count 298 (150-375) k/mm3 MPV 9.0 (7.4-10.4) fl Immature Gran % (Auto) Not Reportable Neut % (Auto) Not Reportable Lymph % (Auto) Not Reportable [place] % (Auto) Not Reportable Eos % (Auto) Not Reportable Baso % (Auto) Not Reportable Lymph # (Auto) Not Reportable [place]eson # (Auto) Not Reportable Eos # (Auto) Not Reportable Baso # (Auto) Not Reportable Abs Immat Gran (auto) Not Reportable Absolute Neuts (auto) Not Reportable Absolute Nucleated RBC Not Reportable Total Counted 100 Neutrophils % (Manual) 87 H (46-73) % Band Neutrophils % 5 (0-6) % Lymphocytes % (Manual) 2 L (18-44) % Monocytes % (Manual) 6 (3-9) % Nucleated RBC % Not Reportable Abs Neuts (Manual) 20.14 H (1.3-6.7) K/mm3 Abs Lymphs (Manual) 0.43 L (1.1-4.5) K/mm3 Abs Monocytes (Manual) 1.31 H (0.1-0.90) K/mm3 Atypical Lymphocytes Present Platelet Estimate Adequate (Adequate) Stomatocytes 1+ Acanthocytes (Spur) Occasional Schistocytes None seen ESR 14 (0-20) mm/hr PT 15.7 H (11.1-14.7) Seconds INR 1.2 APTT 29.5 (22.3-36.8) Seconds Sodium 136 L (137-145) mmol/L Potassium 4.7 (3.4-5.0) mmol/L Chloride 106 (98-107) mmol/L Carbon Dioxide 22 (22-30) mmol/L Anion Gap 8 (4-12) mmol/L BUN 31 H D (9-20) mg/dL Creatinine 1.34 H (0.7-1.3) mg/dL Estim Creat Clear Calc Not Reportable Estimated GFR 52 L (59 - ) Glucose 116 H (65-110) mg/dL Lactic Acid 3.3 H (0.7-2.0) mmol/L Calcium 9.8 (8.4-10.2) mg/dL Total Bilirubin 0.5 (0.2-1.3) mg/dL AST 21 (17-59) U/L ALT 18 (6-50) U/L Alkaline Phosphatase 79 (38-126) U/L Troponin I < 0.012 (0.000-0.034) ng/mL C-Reactive Protein 5.6 H (<1.0) mg/dL Total Protein 7.3 (6.3-8.2) g/dL Albumin 4.4 (3.5-5.1) g/dL Urine Color Red H (Yellow) Urine Appearance Cloudy H (Clear) Urine pH 8.0 (5.0-9.0) Ur Specific [place] 1.010 (1.001-1.035) Urine Protein 3+ H (Negative) mg/dL Urine Glucose (UA) Negative (Negative) mg/dL Urine Ketones Negative (Negative) mg/dL Ur Blood (Man) 3+ H (Negative) Urine Nitrate Negative (Negative) Urine Bilirubin Negative (Negative) Urine Urobilinogen 0.2 (<2.0) mg/dL Leukocyte Esterase Rfl 2+ H (Negative) TIFFANY/UL Urine RBC >100 H (0-2) /hpf Urine WBC >100 H (0-3) /hpf Ur Squamous Epith Cells None seen (Few) /hpf Urine Bacteria 3+ H /hpf Urine Casts 0-2 Discharge Plan Discharge Clinical Impression: Urinary tract infection Qualifiers: Urinary tract infection type: catheter-associated UTI Indwelling urinary catheter type: indwelling urethral catheter Encounter type: initial encounter Qualified Code(s): T83.511A - Infection and inflammatory reaction due to indwelling urethral catheter, initial encounter Patient Disposition: Still a Patient Condition: Serious Patient Language: Kiswahili Prescriptions: No Action duloxetine 30 mg capsule,delayed release(DR/EC) 30 mg PO BID gabapentin 300 mg capsule 800 mg PO TID methocarbamol 750 mg tablet 1,500 mg PO QID Rx Instructions: two 750mg tabs to equal 1,500mg total dose pantoprazole 40 mg tablet,delayed release (DR/EC) 40 mg PO DAILY diclofenac sodium [Aspercreme Arthritis Pain] 1 % gel 2 g topical DAILY PRN (Reason: pain) Rx Instructions: apply to single elbow, wrist or hand; for hand includes palm/fingers/back of hand Gurpreet (with collagen) 7-7-1.5 gram powder in packet 1 packet PO BID Rx Instructions: mix 1 packet with 8-10 oz liquid Santyl 250 unit/gram ointment 1 applic topical DAILY guaifenesin [Mucinex] 600 mg tablet extended release 12hr 600 mg PO BID cholecalciferol (vitamin D3) 25 mcg (1,000 unit) capsule 25 mcg PO DAILY cyanocobalamin (vitamin B-12) 1,000 mcg capsule 1,000 mcg PO DAILY naloxone 0.4 mg/mL syringe 0.4 mg IM Q2M PRN (Reason: opioid reversal) Rx Instructions: NTExceed 10 mg total dose/episode lidocaine [Lidocaine Pain Relief] 4 % Adhesive Patch,Medicated 1 patch transdermal Q12H oxycodone 5 mg Tablet 5 mg PO Q4H PRN (Reason: Pain) amoxicillin-pot clavulanate 875-125 mg tablet 1 tablet PO Q12H Qty: 10 0RF acetaminophen 500 mg 2 tablet BYMOUTH TID Florastor 250 mg capsule 1 cap PO DAILY tamsulosin 0.4 mg capsule 0.4 mg PO HS Qty: 30 0RF finasteride 5 mg tablet 5 mg PO DAILY Qty: 30 0RF apixaban 5 mg Tablet 5 mg PO BID Qty: 60 0RF Follow-up/Referrals: Marcelino,MD Sj [Primary Care Provider, Unknown] Time of Disposition: 12:22
[2025-10-24 10:21] LABS: Hematocrit 42.1 % (42.0-52.0); Hemoglobin 13.3 g/dL (14.0-18.0); Mean Corpuscular HGB Conc 31.6 g/dl (32-36); Mean Corpuscular Hemoglobin 27.4 pg (26-34); Mean Corpuscular Volume 86.8 fl (80-100); Platelet Count Result 298 k/mm3 (150-375); Red Blood Count 4.85 M/mm3 (4.6-6.20); White Blood Count 21.9 K/mm3 (4.5-10.0)
[2025-10-24] MEDS: SODIUM CHLORIDE 0.9% IV 1,000 ML 250 ML IV CONT ×2 (10:31→14:10)
[2025-10-24 10:39] LABS: Acanthocytes Occasional; Band Neutrophils Percent 5 % (0-6); Lymphocytes Absolute Manual 0.43 K/mm3 (1.1-4.5); Lymphocytes Percent Manual 2 % (18-44); Monocytes Absolute Manual 1.31 K/mm3 (0.1-0.90); Monocytes Percent Manual 6 % (3-9); Neutrophils Absolute Manual 20.14 K/mm3 (1.3-6.7); Neutrophils Percent Manual 87 % (46-73); Schistocytes None Seen; Stomatocytes 1+; Total Cells Counted 100
[2025-10-24 10:42] LABS: Alanine Aminotransferase 18 U/L (6-50); Albumin Level 4.4 g/dL (3.5-5.1); Alkaline Phosphatase 79 U/L (38-126); Anion Gap 8 mmol/L (4-12); Aspartate Amino Transferase 21 U/L (17-59); Bilirubin,Total 0.5 mg/dL (0.2-1.3); Blood Urea Nitrogen 31 mg/dL (9-20); Calcium 9.8 mg/dL (8.4-10.2); Carbon Dioxide 22 mmol/L (22-30); Chloride 106 mmol/L (98-107); Estimated Glomerular Filt Rate 52; Glucose 116 mg/dL (65-110); Potassium 4.7 mmol/L (3.4-5.0); Sodium 136 mmol/L (137-145); Total Protein 7.3 g/dL (6.3-8.2)
[2025-10-24 10:53] LABS: Troponin I < 0.012 ng/mL (0.000-0.034)
[2025-10-24 11:04] LABS: Non Pathogenic Casts 0-2
[2025-10-24 11:27] LABS: INR 1.2; Prothrombin Time 15.7 Seconds (11.1-14.7)
[2025-10-24 11:28] LABS: Partial Thromboplastin Time 29.5 Seconds (22.3-36.8)
[2025-10-24 11:31] LABS: Add Urine Microscopic? YES; Appearance Urine Cloudy (Clear); Specific Grav Ur 1.010 (1.001-1.035)
[2025-10-24 11:32] LABS: Glucose Urine UA Negative (Negative); Leukocyte Esterase Ur 2+ LEU/UL (Negative); Nitrate Urine Negative (Negative)
--- NOTE | 2025-10-24 11:43 | PC.NURSE ---
this RN attempted to start a second line while drawing blood cultures. unsuscessful attempt in L AC
--- OUTSIDE RECORDS SUMMARY | 2025-10-24 11:49 | XMS_ITS | Encounter Summary ---
Author Organization [facility] Address [address] [place] [address] Phone Care Team Providers Care Leather Stitcher Name Role Phone Sj Benson MD Primary Care Provider [phone] Encounter Details Date Type Department Care Team (Late st Contact Info) Description 10/05/2025 Results Follow-Up [facility] Medicine Urology [address]th [place] [address] [place] [address] Elham Bryson PA [address] [facility] [place] [address] CT KUB Stone WO Contrast Social History Tobacco Use Types Packs/Day Years Used Date Smoking Tobacco: Never Passive Smoke Exposure: Never Smokeless Tobacco: Never [facility] Utilities Answer Date Recorded In the past 12 months has Rapt, gas, oil, or water [employer] threatened to shut off services in your home? No 12/28/2024 Social Connection and Isolation Panel Answer Date Recorded In a typical week, how many times do you talk on the phone with family, friends, or neighbors? More than three times a week 12/28/2024 How often do you get togethe r with friends or relatives? More than three times a week 12/28/2024 How often do you attend [facility] or confucianism services? More than 4 times per year 12/28/2024 Do you belong to any clubs o r organizations such as tenriism groups, unions, fraternal or athletic groups, or school groups? Yes 12/28/2024 How often do you attend meet ings of the clubs or organizations you belong to? 1 to 4 times per year 12/28/2024 Are you , , di vorced, , never , or living with a partner? 12/28/2024 AUDIT-C Answer Date Recorded Q1: How often do you have a drink containing alcohol? Never 02/20/2025 Q2: How many drinks containi ng alcohol do you have on a typical day when you are drinking? Patient does not drink Q3: How often do you have si x or more drinks on one occasion? Never 02/20/2025 Overall Financial Resource Strain (CARDIA) Answe r Date Recorded How hard is it for you to pa y for the very basics like food, housing, medical care, and heating? Not hard at all 12/28/2024 PHQ-2 Answer Date Recorded PHQ-2 Total Score 0 12/28/2024 Hunger Vital Sign Answer Date Recorded Within the past 12 months, y ou worried that your food would run out before you got the money to buy more. Never true 02/21/20 25 Within the past 12 months, t he food you bought just didn't last and you didn't have money to get more. Never true 02/20/2025 PRAPARE - Transportation Answer Date Re corded In the past 12 months, has l ack of transportation kept you from medical appointments or from getting medications? No 04/2025 In the past 12 months, has l ack of transportation kept you from meetings, work, or from getting things needed for daily living? No 12/28/2024 Housing Stability Vital Sign Answer Cody e Recorded In the last 12 months, was t here a time when you were not able to pay the mortgage or rent on time? No 12/28/2024 In the past 12 months, how m any times have you moved where you were living? 0 12/28/2024 At any time in the past 12 m [facility], were you homeless or living in a intermediate (including now)? No 12/28/2024 Personal Safety Answer Date Recorded Have you ever been in or are you currently in a harmful physical or emotional relationship or is someone making you feel afraid or unsafe? 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
--- OUTSIDE RECORDS SUMMARY | 2025-10-24 11:49 | XMS_ITS | Encounter Summary ---
Author Organization [facility] Address [address] [place] [address] Care Team Providers Care Table Machine Operator Name Role Phone Marcelino Sj K Primary Care Provider Unavailab le Encounter Details Date Type Department Care Team (Late st Contact Info) Description 09/13/2018 Lab Requisition [facility] [address] [facility] [facility] [place] [address] Brittany Peña MD [address] [facility] [place] [address] [place] [address] Social History Tobacco Use Types Packs/Day Years Used Date Smoking Tobacco: Never Assessed Sex and Gender Information Value Date Recorded Sex Assigned at Not on file Legal Sex Male 1:31 PM CDT Gender Identity Not on file Sexual Orientation Not on file documented as of this encounter Plan of Treatment Not on file documented as of this encounter Procedures Procedure Name Priority Date/Time Associated Diagnosis Comments DERMATOPATH TECHNICAL REPORT Routine 09/09/2018 12:00 AM CDT documented in this encounter Results * DERMATOPATH TECHNICAL REPORT (09/09/2018 12:00 AM CDT) Case Report Dermatopathology Report Case: [id number] Authorizing Provider: Brittany Peña MD Collected: 09/09/2018 12:00 AM Pathologist: Tiffany Astorga MD Received: 09/13/2018 06:58 AM Specimens: A) - Skin, left neck B) - Skin, right knee 8 4:09 PM CDT DERMATOPATHOLOGY LABORATORY Clinical History A: ISK vs nevus vs R/O BCC. Dewey brown papule. B: VV vs ISK vs SCC/PSO. Verrucous plaque. 8 4:09 PM CDT DERMATOPATHOLOGY LABORATORY Gross Description Specimen A: Received is one formalin filled container labeled with the patient's name and designated left neck. The specimen consists of a shave measuring [id number]. Jar 0. Specimen B: Received is one formalin filled container labeled with the patient's name and designated right knee. The specimen consists of a shave measuring [id number]. Jar 0. [facility] Dermatopathology Laboratory performed the technical component only. 8 4:09 PM T DERMATOPATHOLOGY LABORATORY Embedded Images 4:09 PM T DERMATOPATHOLOGY LABORATORY DISCLAIMER An external and internal positive and negative controls are appropriate for the histochemical, immunohistochemical and immunofluorescence stain(s) in this case (if any), except where stated explicitly. The performance characteristics of the stain(s) cited in this report were developed and its performance characteristic determined by the Dermatopathology Laboratory at [facility]. These tests need not be, and therefore are not, approved by the [place] Food and Drug Administration. The tests are used for clinical purposes. 8 4:09 PM [facility] DERMATOPATHOLOGY LABORATORY at 1609 CDT Pathology/Cytology TISSUE SPECIMEN FROM SKIN / Unknown 09/09/2018 09/13/2018 6:58 AM CDT Miscellaneous samples (specimen) TISSUE SPECIMEN FROM SKIN / Unknown 09/09/2018 09/13/2018 6:58 AM CDT us Brittany Peña MD LAB - PATHOLOGY/CYTOLOGY ORD ERABLES Final Result DERMATOPATHOLOGY LABORATORY [facility] - Department of Dermatology [address] [facility] [facility], 5th Floor Lab [address] [phone] documented in this encounter Visit Diagnoses Not on filedocumented in this encounter Care Teams Table Machine Operator Relationship Specialty Start Date End Date Sj Benson Update Information PCP - General 06/24/21 documented as of this encounter
--- OUTSIDE RECORDS SUMMARY | 2025-10-24 11:49 | XMS_ITS | Encounter Summary ---
Author Organization [facility] Address [address] [place] [address] Care Team Providers Care Head Bucker Name Role Phone Sj Benson Primary Care Provider Unavailab le Encounter Details Date Type Department Care Team (Late st Contact Info) Description 04/11/2021 Lab Requisition [facility] [address] [place], [place] [id number] Preeti Carreon MD [address] [place], [place] [address] Illness, unspecified Social History Tobacco Use Types [...] Final Diagnosis URINE, VOIDED, THIN PREP, CYTOLOGY (OSC:[id number]; 04/09/2021): - Negative for high grade urothelial carcinoma 04/14/2021 8:56 AM CDT [facility] at 0856 CDT Microscopic Description and Comment Microscopic examination substantiates the final diagnosis. 04/14/2021 8:56 AM CDT [facility] Clinical History Hematuria 04/14/2021 8:56 AM CDT [facility] Materials Received Prepared slide received from [facility] [id number]. All material will be returned. 04/14/2021 8:56 AM CDT [facility] PATHOLOGY LAB Disclaimer The performance characteristics of all immunohistochemical and indirect immunofluorescence stains (if any) cited in this report were determined by the Histopathology Laboratory of [facility]. Some of these tests were developed [...] attending (teaching) pathologist. 04/14/2021 8:56 AM CDT [facility] Case Report Surgical Pathology Report Case: [id number] Authorizing Provider: Preeti Carreon MD Collected: 04/09/2021 11:33 AM Ordering Location: [facility] Lab Received: 04/11/2021 11:33 AM Pathologist: Mike Thomas MD Specimen: Slide Consultation 04/14/2021 8:56 AM CDT [facility] LAB Embedded Images 04/14/2021 8:56 AM CDT [facility] Pathology/Cytolo gy SURGICAL PATHOLOGY CONSULTATION AND REPORT ON REFERRED SLIDES PREPARED ELSEWHERE / Unknown 04/09/2021 11:33 AM CDT 04/11/2021 11:33 AM CDT Preeti Carreon MD LAB - PATHOLOGY/CYTOLOGY ORDERAB LES Final Result [facility] LAB [address] [phone] documented in this encounter Visit Diagnoses Diagnosis Illness, unspecified documented in this encounter Care Teams Head Bucker Relationship Specialty Start Date End Date Sj Benson Update Information PCP - General 06/24/21 documented as of this encounter
--- OUTSIDE RECORDS SUMMARY | 2025-10-24 11:49 | XMS_ITS | Clinical Summary ---
Author Organization [facility] Address [address] [place] [place] [address] Care Team Providers Care Yoga Teacher Name Role Phone Sj Benson Primary Care Provider Unavailab le Source Comments [facility],non-owned Affiliates and Associated Physician Practices is amultiple site organization consisting of ambulatory clinics and hospital sitesin [place], [place], [place] and [place]. This disclosure is being madepursuant to the Care Everywhere program and may not contain all information available regarding this patient. Last updated 18.[facility] [employer] Social History Tobacco Use Types Packs/Day Years Used Date Smoking Tobacco: Never Assessed Sex and Gender Information Value Date Recorded Sex Assigned at Not on file Legal Sex Male 1:31 PM CDT Gender Identity Not on file Sexual Orientation Not on file Plan of Treatment Health Maintenance Due Date Last Done Comments MEDICARE AWV 12 MONTHS 1950 HEPATITIS C SCREENING 09/15/1966 DTAP/TDAP/TD VACCINES (1 - Tdap) 1967 PNEUMOCOCCAL VACCINE 50+ (1 of 1 - PCV) 1998 ZOSTER VACCINE (1 of 2) 1998 Respiratory Syncytial Virus (RSV) Vaccine Pt: or over 60 yrs (1 - 1-dose 75+ series) 2023 DEPRESSION SCREENING 11/22/2024 COVID-19 VACCINE (3 - 2024-2 6 season) 2025 03/10/2021, 02/10/2021 INFLUENZA VACCINE (#1) 2025 HEPATITIS B VACCINE Aged Out No longe r eligible based on patient's age to complete this topic HIB VACCINE Aged Out No longer eligi ble based on patient's age to complete this topic HPV VACCINE Aged Out No longer eligi ble based on patient's age to complete this topic MENINGOCOCCAL (Group B) VACCINE SHARED DECISION-MAKING Aged Out No longer eligible based on patient's age to complete this topic MENINGOCOCCAL GROUPS A/C/Y/W VACCINE Aged Out No longer eligible b ased on patient's age to complete this topic Insurance MEDICARE * Guarantor: THUS,LILI Account Type Relation to Patient Date of Phone Billing Address Personal/Family [address] [place] [address] MEDICARE [facility] * Guarantor: THUS,LILI Account Type Relation to Patient Date of Phone Billing Address Personal/Family [address] [place] [address] MEDICARE ANTHEM * Guarantor: THUS,MONTE Elmer Type Relation to Patient Date of Phone Billing Address Personal/Family [address] [place] [address] [facility] Care Teams Yoga Teacher Relationship Specialty Start Date End Date Sj Benson Update Information PCP - General 06/24/21
--- OUTSIDE RECORDS SUMMARY | 2025-10-24 11:49 | XMS_ITS | Clinical Summary ---
Author Organization [facility] Address [address] [address] Care Team Providers Care Wool Tamper Name Role Phone Sj Benson MD Primary Care Provider [phone] Allergies Active Allergy Reactions Criticality Noted Date [...] in either 1 is significantly abnormal. Immunizations Immunization Administration Dates Next Due MODERNA [...] 75+ series) 2023 COVID-19 Vaccine (3 - 2024-2 6 season) 2025 03/10/2021, 02/10/2021 Influenza Adult (#1) 2025 DTaP, Tdap and Td Vaccines ( 3 - Td or Tdap) 08/10/2027 08/10/2017, 03/04/2017 Hepatitis A Vaccines Aged Out No long er eligible based on patient's age to complete this topic Meningococcal B Vaccine Aged Out No l onger eligible based on patient's age to complete this topic Meningococcal Vaccine Aged Out No lemuel riley eligible based on patient's age to complete this topic RSV Immunizations Under 20 Months Aged Out No longer eligible b ased on patient's age to complete this topic Medical Devices Implanted Type Area Lamp Cleaner Street Light Device Identifier Shelf Expiration Date Model / Serial / Lot Stimulator Lead-12/07/2023 Implanted:Qty: 1 on 12/07/[address] [employer] 3219 / / Stimulator Implant- 024 Implanted:Qty: 1 on 12/07/[address] [facility] [employer] [facility] [facility] [employer] [id number] / / Description:MR SCHNEIDER A T 1.5 T ONLY, NEED REMOTE TO TURN OFF STIMULATION , NORMAL JACKI , MAX 30 MINUTE SCAN TIME IN 60 MINUTE WINDOW Insurance MEDICARE [facility] Care Teams Wool Tamper Relationship Specialty Start Date End Date Sj Benson MD PCP - General FAMILY PRACTICE 07/29/21
--- OUTSIDE RECORDS SUMMARY | 2025-10-24 11:49 | XMS_ITS | Patient Health Record ---
Author Organization [facility] [email or web address] [place] ([address]) Address [address] [place] [address] Care Team Providers Care Set Up Technician Name Role Phone Sj Benson Primary Care Provider Dr. 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 [address] [phone] [id number] Thus, Ryan Self - patient is the insured [facility] [address] [place] [address] [id number] Thus, Ryan Self - patient is the [...]
--- OUTSIDE RECORDS SUMMARY | 2025-10-24 11:49 | XMS_ITS | Clinical Summary ---
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 Role Phone Sj Benson MD Primary Care Provider [phone] Allergies Active Allergy Reactions Criticality Noted Date [...] 2 (two) times a day 4 Active bisacodyL (DULCOLAX) 10 mg suppositoryIndi [...] 2 (two) times a day 4 Active oxyCODONE (ROXICODONE) 5 mg immediate release tabletIndicatio ns:Pain Take 1 tablet (5 mg total) by mouth every 4 (four) hours as needed for pain 5 Active acetaminophen 500 mg capsule Take 2 capsules (1,000 mg total) by mouth every 6 (six) hours 5 Active apixaban (ELIQUIS) 5 mg tabletIndicatio ns:Venous Thrombosis You will take therapeutic lovenox BID until your follow up appointment with DR. Robles. At your follow up appointment with Dr. Robles, ask when you can transition to your home Eliquis. 5 Active enoxaparin (LOVENOX) 100 mg/mL syringeIndicati ons:Venous Thrombosis Inject 1 mL (100 mg total) under the skin every 12 (twelve) hours Until Dr. Robles instructs you to stop lovenox and transition back to your home Eliquis dose. 5 Active Additional Information Patient not taking.Reported on 05/08/2025 gabapentin (NEURONTIN) 800 mg tablet Take 1 tablet (800 mg total) by mouth 3 (three) times a day 5 01/05/20 26 Active lidocaine (LIDODERM) 5 % Place 1 patch on the skin daily Remove & discard patch within 12 hours or as directed by MD. 5 Active miconazole (SECURA THICK) 2 % cream Apply topically 2 (two) times a day 5 Active Additional Information Patient not taking.Reported on 05/08/2025 miconazole 2 % powder Apply topically 3 (three) times a week 5 Active Additional Information Patient not taking.Reported on 05/08/2025 ramelteon (ROZEREM) 8 mg tabletIndicatio ns:Sleep-Onset Insomnia Take 1 tablet (8 mg total) by mouth nightly as needed for sleep 5 01/05/20 26 Active Additional Information Patient not taking.Reported on 05/08/2025 ciprofloxacin (CIPRO) 750 mg tablet Take 1 tablet (750 mg total) by mouth every 12 (twelve) hours Active methocarbamoL (ROBAXIN) 500 mg tabletIndicatio ns:Muscle Spasm Take 3 tablets (1,500 mg total) by mouth 4 (four) times a day Active diclofenac sodium (VOLTAREN) 1 % gelIndications: Pain Apply 2 g topically daily as needed Active oxyCODONE ER (OxyCONTIN) 10 mg 12 hr abuse-deterrent tabletIndicatio ns:severe chronic pain requiring long-term opioid treatment Take 1 tablet (10 mg total) by mouth every 12 (twelve) hours Active cephalexin (KEFLEX) 500 mg capsule Take 1 capsule (500 mg total) by mouth 3 (three) times a day 15 capsule 5 Active baclofen (LIORESAL) 10 mg tablet Take 1 tablet (10 mg total) by mouth 2 (two) times a day 60 tablet 5 5 02/18/20 26 Active nitrofurantoin monohydrate (MACROBID) 100 mg capsule Take 1 capsule (100 mg total) by mouth 2 (two) times a day 10 capsule 5 Active Active Problems Problem Noted Date Diagnosed Date Arachnoid cyst 12/19/2024 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 He has completed 6 weeks of Augmentin for the treatment of a enterococcus, Bacteroides fragilis and Peptostreptococcus sacral osteomyelitis. -Okay to stop antibiotics today as patient has completed 6 weeks of antibiotics -Reviewed recent labs -We will refer patient to wound clinic close to his house so he will have somewhere to follow for wound care - Discussed with patient the rational for treatment, culture results, risk of recurrent infection, signs/symptoms of recurrent infection, and to contact ID clinic with any questions or concerns. Assessment & Plan (01/05/2025 2:53 PM SALES MANAGEMENT INTERN): The patient is a 74 y.o. male with PMH of chronic low back pain s/p thoracic and lumbar laminectomy and spinal cord stimulator c/b worsening thoracic myelopathy s/p recent thoracic laminectomy and arachnoid cyst resection 10/11/24, urinary retention with chronic fonseca who presented for worsening bilateral LE weakness and sacral decubitus ulcer. He presented to [facility] on 12/04 after home health nurse reported concerns for infection with enlarging and foul smelling sacral decubitus ulcer. Labs showed WBC 17, ESR 133 and CRP 16.3. Blood cultures 12/04 no growth. Sacral wound culture 12/04 growing growing Enterococcus spp (amp S and vanc S), Bacteroides fragilis and Peptostreptococcus. CT A/P showed a large decub ulcer with associated rim enhancing fluid and gas collection which extends into the L greater than right gluteal subcutaneous tissues/musculature, the collection tracks deep with the soft tissues to abut the distal sacrum and coccyx with minimal osseous erosions suspicions for OM. The left gluteal spinal stimulator leads traverse beyond the the margin of the image. He was started on vanc, cefepime and flagyl and underwent debridement on 12/06 that noted wound down to sacrum with periosteum soft infected and bone bleeding deep to this which was debrided to healthy tissue, but no cultures sent. He was transferred to [facility] for NSGY evaluation and MRI. MRI total spine showed T4 collection consistent with reaccumulation of arachnoid cyst, no concern for infection. MRI pelvis showed sacral decub which tracks to the posterior aspect of the sacrococcygeal junction with likely OM or possible artifact from stimulator. ACCS was consulted and there was exposed bone in wound without ongoing undrained infection and recommended wound nurse consult for vac placement. He was continued on vanc, cefe and flagyl. ESR 22 and CRP 191. Blood culture 12/06 NGTD. ID was consulted on 12/08 and recommended transitioning to Unasyn while awaiting plan going forward. It was determined for patient to undergo bone bx rather than debridement. x cultures have finalized with NG and pathology negative for OM. Though pathology and cultures are negative, we would recommend treating with antibiotics for 6 weeks for presumed OM given exposed bone. Cultures at [facility] grew Enterococcus spp (amp S and vanc S), Bacteroides fragilis and Peptostreptococcus,. Based on those results, we would recommend 2 weeks of IV antibiotics followed by Augmentin for 4 weeks to complete 6 weeks of therapy. ID provided final recommendations on 12/15. Patient went to the OR 2/3 for T3-5 intradural arachnoid cyst fenestration with ventral spinal cord untethering. He has continued on Augmentin. Results: -Blood cultures 12/06: NG -Sacral bone aspiration 12/11: NG, no organisms seen -Sacral bone bx 12/11: NG, no organisms seen -Sacrum bone bx pathology 12/11: bone with fibrosis, negative for acute OM -CT thoracic spine 12/28: postsurgical changes of decompressive laminectomy from T3 to T5 and thoracic arachnoid cyst fenestration/resection. -MRI thoracic spine 12/29: Spanning from T3-T6 vertebral within the operative bed, likely represent postoperative seroma. -ESR 01/01: 14 -CRP 01/01: 1.6 -Blood cultures 01/04: NGTD Patient has transferred out of the ICU to the floor. He has had persistent leukocytosis but without infectious symptoms. Additionally, patient has continued on high dosed steroids. Per notes, Dex wean in progress.Primary team sent infectious workup due to leukocytosis. UA clean, wound photos with red clean base, CXR without findings of pneumonia, and blood cultures obtained with NGTD. Favor leukocytosis is likely from steroids given WBC increased when dex was started and because patient has no symptoms. Reviewed ID involvement in care. He has continued on Augmentin which he is tolerating well. Recommendations: - Continue Augmentin as ordered - Patient completed 2 weeks of unasyn (12/07 - 12/21) and has continued onAugmentin 875mg PO Q12H for 4 weeks (12/22 - 01/18) to complete 6 weeks of therapy for OM. - Please get repeat ESR and CRP at the end of therapy -Outpatient ID appointment scheduled on 01/18. - Thank you for allowing us to participate in the care of this patient. For questions or concerns, please do not hesitate to reach out. Leg weakness, bilateral 12/06/2024 Pressure injury of skin 11/29/2024 Muscle weakness 11/27/2024 Thoracic myelopathy 07/27/2024 Primary localized osteoarthritis of pelvic regio n and thigh 07/12/2024 Left upper quadrant pain 05/16/2024 Abdominal pain 04/28/2024 Open wound of lower leg 04/10/2024 Irritable bowel syndrome 05/17/2023 Sinusitis 10/26/2022 Hyperlipidemia 11/03/2021 Deep vein thrombosis (DVT) of upper extremity Essential (primary) hypertension 08/04/2021 Overview (07/12/2024): Last [...] Encounters Date Type Department Care Team Description 10/17/2025 Documentation Center for [facility] ([facility]) - [facility] Urology [address] [place] [address] [place] [address] Gillian Benton MD Urodynamics report 10/16/2025 12:30 PM SALES MANAGEMENT INTERN Office Visit [facility]) - [facility] Urology [address] [place] [address] Benign prostatic hyperplasia without urinary obstruction (Primary Dx); Urinary retention 10/05/2025 Results Follow-Up [facility]) - [facility] Urology [address] [place] [address] KUB Stone WO Contrast 10/04/2025 Results Follow-Up [facility] ([facility]) - [facility] Urology [address] [place] [address] [place] [address] Elham Bryson PA Urine culture Urine, indwelling catheter 10/02/2025 1:11 PM SALES MANAGEMENT INTERN - 10/02/2025 11:59 PM SALES MANAGEMENT INTERN Hospital Encounter [facility] [address] [place] [address] Neurogenic bladder; History of bladder stone; Benign prostatic hyperplasia with urinary retention Discharge Disposition: Discharge to home or self care 10/02/2025 11:13 AM SALES MANAGEMENT INTERN - 10/02/2025 11:59 PM SALES MANAGEMENT INTERN Hospital Encounter [facility] [address] [place] [address] Neurogenic bladder; Unspecified abnormal findings in urine Discharge Disposition: Discharge to home or self care 10/02/2025 10:20 AM SALES MANAGEMENT INTERN Office Visit [facility] ([facility]) - [facility] Urology [address] [place] [address] 11th [place] [address] [place] [address] Neurogenic bladder (Primary Dx); Unspecified abnormal findings in urine 09/11/2025 Results Follow-Up [facility] Orthopaedic Surgery [address] [facility] 12th [place] [address] [place] [address] Felix Meyers PA Dexa Axial Skeleton Bone Density 1 or 2 Site 09/07/2025 2:10 PM CDT Clinical Support [facility] Health [address] [facility] [address], [address] [place] [address] Screening for osteoporosis (Primary Dx); Thoracic myelopathy; Paraplegia; 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, initial encounter (HCC); FDC current use of anticoagulant 09/05/2025 Results Follow-Up [facility] Emergency Department [address] [place] [address] Bladimir Valencia MD Urine culture Urine, Urine culture Urine, bladder 09/04/2025 11:00 AM CDT Office Visit [facility] ([facility]) - [facility] Urology [address] [facility] 11th [place] [address] [place] [address] Elham Bryson PA Neurogenic bladder (Primary Dx); Thoracic myelopathy; History of bladder stone; Benign prostatic hyperplasia with urinary retention; Leg weakness, bilateral 09/03/2025 2:09 PM CDT - 09/03/2025 5:32 PM CDT Emergency [facility] Emergency Department [address] [place] [address] Transient alteration of awareness (Primary Dx); Urinary tract infection associated with indwelling urethral catheter, initial encounter Discharge Disposition: Discharge to snf facility 08/21/2025 12:30 PM CDT Office Visit [facility] Orthopaedic Surgery [address] [facility] 12th [place] [address] [place] [address] Felix Meyers PA Thoracic myelopathy (Primary Dx); Neurogenic bladder; Paraplegia; 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, initial encounter ([facility]) 08/08/2025 9:49 AM CDT - 08/08/2025 11:59 PM CDT Hospital Encounter [facility] [address] [place] [address] Krupa Patel MD Stiffness of left shoulder joint Discharge Disposition: Discharge to home or self care 08/07/2025 Telephone [facility] Orthopaedic Surgery [address] [place] [address] 2nd Floor [address] [place] [address] Michelle Lange CMA 08/07/2025 Telephone [facility] Orthopaedic Surgery [address] [place] [address] 2nd Floor [address] [place] [address] Michelle Lange CMA Scheduling Appointments 08/07/2025 Orders Only [facility] Orthopaedic Surgery [address] [place] [address] 2nd Floor [address] [place] [address] Fe Lange MD Stiffness of left shoulder joint (Primary Dx) 08/06/2025 Telephone [facility] Orthopaedic Surgery [address] [place] [address] 2nd Floor [address] [place] [address] Fe Lange MD 08/02/2025 9:40 AM CDT - 08/02/2025 11:59 PM CDT Hospital Encounter [facility] [address] [place] [address] Encounter for imaging to screen for metal prior to magnetic resonance imaging (MRI) Discharge Disposition: Discharge to home or self care 08/02/2025 9:33 AM CDT - 08/02/2025 11:59 PM CDT Hospital Encounter [facility] [address] [place] [address] Fe Lange MD Shoulder pain, unspecified chronicity, unspecified laterality Discharge Disposition: Discharge to home or self care 07/31/2025 9:00 AM CDT [facility] [address] [place] [address] Advanced Medicine 6th [place] [address] [place] [address] Jeffrey William MD Radiculopathy, cervical region (Primary Dx); Shoulder pain, unspecified chronicity, unspecified laterality; Weakness from Last 3 Months Immunizations Immunization Administration Dates Next Due Moderna SARS-CoV-2 Monovalent Vaccination (12+ Y RS) 03/10/2021,02/10/2021 Tdap 08/10/2017,03/04/2017 ZOSTER Recombinant 11/10/2022,07/10/2022 Surgical History Surgery Date Site/Laterality Comments TUMOR REMOVAL 11/22/2020 - 11/21/2021 bladder tumor excision SPINAL CORD STIMULATOR IMPLANT 11/22/2023 - 11/21/2024 LUMBAR SPINE SURGERY 11/22/2020 - 11/21/2021 L4/L5 SPINE SURGERY 11/22/2010 - 11/21/2011 BIOPSY DEEP BONE 12/11/2024 N/A LAMINECTOMY 09/22/2024 - 10/21/2024 WOUND DEBRIDEMENT SPINE SURGERY 12/25/2024 T3-T5 intradural arachnoid cyst fenestration, cervical/thoracic fusion with instrumentation FLUORO GUIDED INJECTION SHOULDER LEFT 08/08/2025 Left Medical History Medical History Date Comments CKD (chronic kidney disease) stage 3, GFR 30-59 ml/min ([facility]) BPH (benign prostatic hyperplasia) Obesity Renal cyst Back pain Neuropathy Sinusitis Arachnoid cyst Osteomyelitis sacral Irritable bowel syndrome DVT (deep venous thrombosis) Hypertension Osteoarthritis Hyperlipidemia Family History Medical History Relation Name Comments Anesthesia problems Neg Hx Social History Tobacco Use Types Packs/Day Years Used Date Smoking Tobacco: Never Passive Smoke Exposure: Never Smokeless Tobacco: Never Tobacco Cessation:Counseling Given: Not Answered [facility] Utilities Answer Date Recorded In the past 12 months has th e electric, gas, oil, or water company threatened to shut off services in your [...] week 12/28/2024 How often do you attend chur ch or cheondoism services? More than 4 times per year 12/28/2024 Do you belong to any clubs o r organizations such as alevism groups, unions, fraternal or athletic groups, or [...] any time in the past 12 m [facility], were you homeless or living in a snf (including now)? No 12/28/2024 Personal Safety Answer Date Recorded Have you ever been in or are you currently in a harmful physical or emotional relationship or is someone making you feel afraid or unsafe? Denies 09/03/2025 Sex and Gender Information Value Date Recorded Sex Assigned at Not on file Legal Sex Male 12:23 PM SALES MANAGEMENT INTERN Gender Identity Not on file Sexual Orientation Not on file Last Filed Vital Signs Vital Sign Reading Time Taken Comments Blood Pressure 97/63 09/04/2025 11:06 AM CDT Pulse 68 09/03/2025 12:44 PM CDT Temperature 36.4 C (97.5 F) 09/04/2025 11:06 AM CDT Respiratory Rate 12 09/04/2025 11:06 AM CDT Oxygen Saturation 98% 09/03/2025 12:44 PM CDT Inhaled Oxygen Concentration - - Weight 92.5 kg (204 lb) 08/21/2025 12:05 PM CDT Height 182.9 cm (6') 08/21/2025 12:05 PM CDT Body Mass Index 27.67 08/21/2025 12:05 PM CDT Plan of Treatment Health Maintenance Due Date Last Done Comments Hepatitis C Screening 1950 Hepatitis B Screening 1966 Pneumococcal vaccine 65+ (1 of 1 - PCV) 1998 Well Visit 65+ 2013 Covid-19 Vaccine ( season) 2025, 02/10/2021 Influenza Vaccine (#1) 2025 Depression Screening 12/05/2025 12/05/2024 Fall Risk Assessment 08/08/2026 08/08/2025 DTaP/Tdap/Td Vaccine (3 - Td or Tdap) 08/10/2027, 03/04/2017 Zoster Vaccine Completed 11/10/2022, 07/10/2022 Medical Devices Implanted Type Area Center Human Resources Manager Device Identifier Shelf Expiration Date Model / Serial / Lot [employer] Lead 3219-12/07/2023 Implanted:2023 (Quantity not on file) Lead Back [employer] 3219 / / [employer] Amniograft 2.5x2cm Allograft Cryopreserved A [id number] Graft Ag-2520 - [id number] - [id number] Implanted:Qty: 1 on 12/25/2024 by James Robles MD at [facility] Other - see comments N/A: Cervical -Thoraci c Spine [employer] 09/13/2026 AG-2520 / [id number] / [id number] [place] [id number]/07/2023 Implanted:2023 (Quantity not on file) Spinal Cord Stimulator Back [employer] [id number] / / [facility] [employer] Barrier [employer]ion Seprafilm 5x6in Translucent [facility] [facility] Sterile [id number] - [id number] Implanted:Qty: 1 on 12/25/2024 by James Robles MD at [facility] N/A: Cervical -Thoraci c Spine [facility]ilda 06/21/2027 [id number] / / Procedures Procedure Name Priority Date/Time Associated Diagnosis Comments CT KUB STONE WO CONTRAST Schedule Routine, Read Routine (OP Routine) 10/02/2025 2:56 PM SALES MANAGEMENT INTERN Neurogenic bladder History of bladder stone Benign prostatic hyperplasia with urinary retention URINE CULTURE Routine 10/02/2025 11:13 AM SALES MANAGEMENT INTERN Neurogenic bladder Unspecified abnormal findings in urine DEXA AXIAL SKELETON BONE DENSITY 1 OR MORE SITES Schedule Routine, Read Routine (OP Routine) 09/07/2025 2:40 PM CDT Thoracic myelopathy Paraplegia 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, initial encounter (HCC) URINE CULTURE STAT 09/03/2025 5:00 PM CDT XR CHEST 1 VIEW ED 09/03/2025 12:59 PM CDT EGFR STAT 09/03/2025 12:52 PM CDT URINALYSIS, MICROSCOPIC ONLY STAT 09/03/2025 12:52 PM CDT DIFFERENTIAL AUTO STAT 09/03/2025 12: 52 PM CDT THYROID FUNCTION CASCADE Routine 09/03/2025 12:52 PM CDT PHOSPHORUS STAT 09/03/2025 12:52 PM CDT MAGNESIUM STAT 09/03/2025 12:52 PM CDT SEPSIS LACTATE WITH REFLEX STAT 09/03/2025 12:52 PM CDT COMPREHENSIVE METABOLIC PANEL STAT 09/03/2025 12:52 PM CDT CBC WITH AUTO DIFFERENTIAL STAT 09/03/2025 12:52 PM CDT URINE CULTURE STAT 09/03/2025 12:52 PM CDT URINALYSIS AND REFLEX TO MICROSCOPIC AND CULTURE STAT 09/03/2025 12:52 PM CDT FLUORO GUIDED INJECTION SHOULDER LEFT Schedule Routine, Read Routine (OP Routine) 08/08/2025 10:28 AM CDT Stiffness of left shoulder joint MRI SHOULDER LEFT WO CONTRAST Schedule Routine, Read Routine (OP Routine) 08/02/2025 11:35 AM CDT Shoulder pain, unspecified chronicity, unspecified laterality XR SPINE THORACOLUMBAR JUNCTION 2 OR MORE VIEWS Schedule Routine, Read Routine (OP Routine) 08/02/2025 9:59 AM CDT Encounter for imaging to screen for metal prior to magnetic resonance imaging (MRI) from Last 3 Months Results * CT KUB Stone WO Contrast (10/02/2025 2:56 PM SALES MANAGEMENT INTERN) Anatomical Region Laterality Modality Abdomen N/A Computed Tomogra phy 10/02/2025 9:12 PM SALES MANAGEMENT INTERN Impressions 10/02/2025 9:12 PM SALES MANAGEMENT INTERN 1. Fonseca catheter in the bladder with multiple bladder stones. Small nonobstructing bilateral renal stones. 2. Sacral decubitus ulcer with chronic osteomyelitis of the sacrum and associated deformity. Electronically signed by: Pritesh Oconnor M.D. Narrative 10/02/2025 9:12 PM SALES MANAGEMENT INTERN Examination: Computed tomography of the abdomen and pelvis without intravenous contrast DATE: 10/02/2025. HISTORY: Benign prostate hyperplasia, bladder stones. Neurogenic bladder. TECHNIQUE: Computed tomography of the abdomen and pelvis was obtained without intravenous contrast according to standard protocol. FINDINGS: Comparison is made to 12/04/2024. There is a Fonseca catheter in the bladder. There are stone fragments in the bladder measuring up to 7 mm. There is a tiny nonobstructing stone measuring 2 mm in the right renal collecting system. No right-sided hydronephrosis. There are several nonobstructing left-sided renal stones measuring up to 5 mm. No left-sided hydronephrosis. No ureteral stones. Noncontrast evaluation of the liver is normal. Gallbladder is normal. Spleen is normal. Pancreas is normal. No adnexal renal lesions. No abdominal or pelvic lymphadenopathy. Bowel is normal in caliber without evidence of any focal wall thickening or obstruction. The appendix is normal. Lung bases are clear. Bone windows are notable for a sacral decubitus ulcer with decreased fluid and gas collection overlying the sacrum. There is chronic osteomyelitis with a angulated deformity at the sacrococcygeal junction, similar to previous exam, possibly related. Procedure Note Pritesh Oconnor MD - 10/02/2025 Examination: Computed tomography of the abdomen and pelvis without intravenous contrast DATE: 10/02/2025. HISTORY: Benign prostate hyperplasia, bladder stones. Neurogenic bladder. TECHNIQUE: Computed tomography of the abdomen and pelvis was obtained without intravenous contrast according to standard protocol. FINDINGS: Comparison is made to 12/04/2024. There is a Fonseca catheter in the bladder. There are stone fragments in the bladder measuring up to 7 mm. There is a tiny nonobstructing stone measuring 2 mm in the right renal collecting system. No right-sided hydronephrosis. There are several nonobstructing left-sided renal stones measuring up to 5 mm. No left-sided hydronephrosis. No ureteral stones. Noncontrast evaluation of the liver is normal. Gallbladder is normal. Spleen is normal. Pancreas is normal. No adnexal renal lesions. No abdominal or pelvic lymphadenopathy. Bowel is normal in caliber without evidence of any focal wall thickening or obstruction. The appendix is normal. Lung bases are clear. Bone windows are notable for a sacral decubitus ulcer with decreased fluid and gas collection overlying the sacrum. There is chronic osteomyelitis with a angulated deformity at the sacrococcygeal junction, similar to previous exam, possibly related. IMPRESSION: 1. Fonseca catheter in the bladder with multiple bladder stones. Small nonobstructing bilateral renal stones. 2. Sacral decubitus ulcer with chronic osteomyelitis of the sacrum and associated deformity. Electronically signed by: Pritesh Oconnor M.D. [facility] KENNEY IMG CT PROCEDURES Fin al Result * Urine culture Urine, indwelling catheter (10/02/2025 11:13 AM SALES MANAGEMENT INTERN) Report Final Report: Less than 100,000 colonies/mL (clinically insignificant growth based on current clinical standards) Organism (CLINICALLY INSIGNIFICANT [facility] [facility], indwelling catheter 10/02/2025 11:13 AM SALES MANAGEMENT INTERN 10/02/2025 6:18 PM SALES MANAGEMENT INTERN Narrative [facility] - 10/04/2025 11:49 AM SALES MANAGEMENT INTERN Testing performed by [facility] ([phone]) Elham [facility] MICROBIOLOGY - [facility] ORDERABLES Final Result [facility] [place] [address] * Dexa Axial Skeleton Bone Density 1 or 2 Site (09/07/2025 2:40 PM CDT) Anatomical Region Laterality Modality Body N/A Radiographic Sadie ging Narrative 09/07/2025 3:32 PM CDT Patient Name: Ryan Delgado Date of : 1950 Date of scan: 09/07/2025 Bone mineral density was performed on a [employer] Discovery Densitometer. Based on machine cross-calibration and precision studies the least significant changes of this densitometer is 0.024 g/cm2 at the spine, 0.020 g/cm2 at the total proximal femur, and 0.014g/cm2 at the forearm. HISTORY: This is a 74 y.o. male. He reports that he has never smoked. He has never been exposed to tobacco smoke. He has never used smokeless tobacco. Currently on treatment with vitamin D and anticoagulants and current complaint of arm pain and back pain. INDICATIONS: Screening for osteoporosis. FINDINGS: BONE MINERAL DENSITY OF THE LUMBAR SPINE Bone Mineral Density (BMD) of the lumbar spine was measured from L1-L3 and the average density was calculated to be 1.395 gm/cm2. This corresponds to a T-score (standard deviations from the mean of young adults) of 3.0. There is no previous study available for comparison. BONE MINERAL DENSITY OF THE PROXIMAL FEMUR Bone Mineral Density (BMD) of the left hip total was found to be 1.056 gm/cm2. This corresponds to a T-score standard deviations from the mean of young adults of 0.2. Femoral neck is 0.852 gm/cm2 with a T-score (standard deviations from the mean of young adults) of -0.6. There is no previous study available for comparison. SUMMARY: Bone mineral density is near the young adult normal mean with no increased risk for fracture. L4 excluded from bone mineral density analysis of the lumbar spine due to history of lumbar laminectomy. ADDITIONAL COMMENTS: Postmenopausal Women and Men Over 50: Diagnostic criteria: Osteoporosis: BMD at or below -2.5 T-score; Osteopenia (low bone mass): BMD between -1.0 and -2.5 T-score. If the patient has a history of a fragility fracture, a fracture that occurred with trauma equivalent to a fall from a standing position or less, then the diagnosis is osteoporosis regardless of bone density. The history and data sections of the bone mineral density scan were prepared by Niurka Nova(Yogi)(Tiffany)(BD) CBDT who is accredited by the International Society of Clinical Densitometry. The overall patient assessment and scan interpretation were performed by Lorena Lux M.D. who is certified by the International Society of Clinical Densitometry. [id number] Felix KENNEY IMG DXA PROCEDURES F inal Result * (ABNORMAL) Urine culture Urine, bladder (09/03/2025 5:00 PM CDT) Report Final Report: Greater than or equal to 100,000 colonies/mL of Proteus mirabilis For susceptibility results, refer to accession number [id number] on the urine culture from 09/03/2025 (.) Comment:Testing performed by : [facility], [address] [place]., [address] Organism PROTEUS MIRABILIS CE TIGRE BLAKE ([place]) Urine, bladder 09/03/2025 5: 00 PM CDT 09/04/2025 12:11 AM CDT Narrative REYNALDO BLAKE ([place]) - 09/05/2025 6:39 AM CDT Urine culture from urine AFTER fonseca placed Indications for Culture:->Urology patient Testing performed by [facility] ([phone]) Ranjit KENNEY LAB MICROBIOLOGY - GENERAL ORDERABLES Final Result REYNALDO BLAKE ([place]) 1 [facility] Department [place] [address] * XR Chest 1 Vw Portable (09/03/2025 12:59 PM CDT) Anatomical Region Laterality Modality Body, Chest N/A Computed Radiogr aphy 09/03/2025 1:05 PM CDT Narrative 09/03/2025 1:06 PM CDT EXAM DESCRIPTION: XR CHEST 1 VIEW REASON FOR STUDY: confusio, please evaluate for pneumonia Pt to ED via POV. 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 Pt is Aat time of triage. TECHNIQUE: Single-view COMPARISON: 01/04/2025 FINDINGS: Central vascularity have normal caliber. Aortic arch well-defined on the left. Lungs are well expanded without consolidation, effusion or pneumothorax. IMPRESSION: No acute findings. THIS IS AN ELECTRONICALLY VERIFIED FINAL REPORT 09/03/2025 1:06 PM - Electronically signed by Primitivo Obrien M.D. RB: RB Report ID: [id number] Reading Location: [id number] Procedure Note Primitivo Obrien MD - 09/03/2025 EXAM DESCRIPTION: XR CHEST 1 VIEW REASON FOR STUDY: confusio, please evaluate for pneumonia Pt to ED via POV. Per Pt he has had increased confusion today and reportsthat he has a chronic fonseca, which has been getting clogged more frequentlylately. Pt is Aat time of triage. TECHNIQUE: Single-view COMPARISON: 01/04/2025 FINDINGS: Central vascularity have normal caliber. Aortic arch well-defined on the left. Lungs are well expanded without consolidation, effusion or pneumothorax. IMPRESSION: No acute findings. THIS IS AN ELECTRONICALLY VERIFIED FINAL REPORT 09/03/2025 1:06 PM - Electronically signed by Primitivo Obrien M.D. RB: RB Report ID: [id number] Reading Location: [id number] Ranjit KENNEY IMG XR PROCEDURES Final Re sult * Sepsis Lactate w/ Reflex (09/03/2025 12:52 PM CDT) Sepsis Lactate 1.3 0.7 - 2.0 mmol/L Blood 09/03/2025 12:5 2 PM CDT 09/03/2025 1:02 PM CDT Ranjit K[facility]NEY LAB BLOOD ORDERABLES Final Result REYNALDO BLAKE ([place]) 1 [facility] [place] [address] * eGFR (09/03/2025 12:52 PM CDT) [facility] eGFR 81 >=60 mL/min/1. 73 m2 Comment: Interpretive Data Reference Interval Normal >/= 90 mL/min/1.73m2 Mildly decreased* 60 - 89 mL/min/1.73m2 Mildly to moderately decreased 45 - 59 mL/min/1.73m2 Moderately to severely decreased 30 - 44 mL/min/1.73m2 Severely decreased 15 - 29 mL/min/1.73m2 Kidney Failure < 15 mL/min/1.73m2 *Relative to young adult level Estimated glomerular [...] interpretive data was last reviewed 2021. Blood 09/03/2025 12:5 2 PM CDT 09/03/2025 1:02 PM CDT Ranjit KEN[facility] LAB BLOOD ORDERABLES Final Result Performing Organization Address City/[facility]/ZIP Co de Phone Number REYNALDO BLAKE ([place]) 1 [facility] [place] [address] * (ABNORMAL) Differential, auto (09/03/2025 12:52 PM CDT) [facility] Neutrophil abs 7.43(H) 1.50 - 6.50 K/cumm Imm gran abs 0.03 0.00 - 0.10 K/cumm [facility] ([place]) Lymphocyte abs 1.94 0.80 - 3.30 K/cumm [facility] ([place]) Monocyte abs 0.87(H) 0.20 - 0.80 K/cumm [facility] ([place]) Eosinophil abs 0.16 0.00 - 0.50 K/cumm [facility] ([place]) Basophil abs 0.05 0.00 - 0.10 K/cumm [facility] ([place]) Neutrophil pct 70.9 % [facility] R [facility] ([place]) Comment: Interpretive Data Percent cell count reference ranges are not reported, since discordance with absolute values may lead to misinterpretation of CBC data. Current Interpretive Data was last revised on 2018. Imm gran pct 0.3 % [facility] ([place]) Comment: Interpretive Data Percent cell count reference ranges are not reported, since discordance with absolute values may lead to misinterpretation of CBC data. Current Interpretive Data was last revised on 2018. Lymphocyte pct 18.5 % [facility] ([place]) Comment: Interpretive Data Percent cell count reference ranges are not reported, since discordance with absolute values may lead to misinterpretation of CBC data. Current Interpretive Data was last revised on 2018. Monocyte pct 8.3 % [facility] ([place]) Comment: Interpretive Data Percent cell count reference ranges are not reported, since discordance with absolute values may lead to misinterpretation of CBC data. Current Interpretive Data was last revised on 2018. Eosinophil pct 1.5 % [facility] ([place]) Comment: Interpretive Data Percent cell count reference ranges are not reported, since discordance with absolute values may lead to misinterpretation of CBC data. Current Interpretive Data was last revised on 2018. Basophil pct 0.5 % [facility] ([place]) Comment: Interpretive Data Percent cell count reference ranges are not reported, since discordance with absolute values may lead to misinterpretation of CBC data. Current Interpretive Data was last revised on 2018. Blood 09/03/2025 12:5 2 PM CDT 09/03/2025 1:02 PM CDT Ranjit [facility] BLOOD ORDERABLES Final Result REYNALDO BLAKE ([place]) 1 [facility] [place] [address] * Thyroid Function [place] (09/03/2025 12:52 PM CDT) TSH 1.32 0.30 - 4.20 mcIUnit/mL Blood 09/03/2025 12:5 2 PM CDT 09/03/2025 1:02 PM CDT Ranjit [facility] BLOOD ORDERABLES Final Result Performing Organization Address [facility] de Phone Number REYNALDO BLAKE ([place]) 1 [facility] [place] [address] * (ABNORMAL) Urinalysis reflex to microscopic and culture Urine (09/03/2025 12:52 PM CDT) Color, ur Yellow Clarity, ur Turbid(A) Clear CERNER A ([place]) Specific gravity, ur 1.018 1.003 - 1.030 [facility] ([place]) pH, urine 8.5 [facility] ([place]) Comment: Interpretive Data U rine pH is affected by diet, medications, systemic acid-base disturbances, and renal tubular function. pH may affect urinary stone formation. For example, urine pH below 6.0 may help reduce the tendency for calcium phosphate stones and pH greater than 6.0 may reduce the tendency for uric acid stone formation. Source: [facility] Current Interpretive Data was last revised on 2017 Protein, ur ql 1+(A) Negative [facility] ([place]) Glucose, ur ql Negative Negative [facility] ([place]) Ketones, ur Negative Negative [facility] A [facility] ([place]) Bilirubin, ur Negative Negative [facility] ([place]) Blood, ur 3+(A) Negative [facility] ([place]) Urobilinogen, ur <2.0 <2.0 mg/dL [facility] ([place]) Nitrite, ur Negative Negative [facility] A [facility] ([place]) Leukocyte esterase, ur 4+(A) Negative [facility] ([place]) UA reflex comment Reflex to microscopic UA will be performed. [facility] ([place]) Urine 09/03/2025 12:5 2 PM CDT 09/03/2025 12:58 PM CDT us Ranjit [facility] MICROBIOLOGY - GENERAL ORDERABLES Final Result [facility]O [facility] ([place]) 1 [facility] Department [place] [address] * (ABNORMAL) CBC with auto differential (09/03/2025 12:52 PM CDT) WBC 10.48(H) 3.80 - 9.90 K/cumm Hgb 11.1(L) 13.0 - 17.5 g/dL [facility] ([place]) Hct 36.4(L) 38.9 - 50.3 % [facility] ([place]) Plt 254 150 - 400 K/cumm [facility] ([place]) MPV 9.0(L) 9.1 - 12.3 fL [facility] ([place]) RBC 4.12(L) 4.30 - 5.80 M/cumm [facility] ([place]) MCV 88.3 81.3 - 96.4 fL [facility] ([place]) MCH 26.9(L) 27.1 - 33.3 pg [facility] ([place]) MCHC 30.5(L) 32.3 - 35.7 g/dL [facility] ([place]) RDW CV 17.2(H) 11.1 - 14.9 % [facility] ([place]) RDW SD 56.3(H) 35.7 - 48.1 fL [facility] ([place]) NRBC abs 0.00 0.00 - 0.01 K/cumm [facility] Blood 09/03/2025 12:5 2 PM CDT 09/03/2025 1:02 PM CDT us Ranjit K[facility] LAB BLOOD ORDERABLES Final Result REYNALDO BLAKE ([place]) 1 [facility] [place] [address] * (ABNORMAL) Urinalysis, microscopic only (09/03/2025 12:52 PM CDT) WBC, ur >50(A) 0 - 5 /HPF RBC, ur >50(A) 0 - 2 /HPF [facility] ([place]) Epithelial cells, squamous, ur 1-5 0 - 5 /HPF [facility] ([place]) Bacteria, ur 1+(A) [facility] ([place]) Mucous, ur Present(A) [facility]ER A [facility] ([place]) Hyaline casts, ur 6-10 0 - 10 /LPF [facility] ([place]) Culture Reflex Comment Reflex to urine culture will be performed. [facility] ([place]) Urine 09/03/2025 12:5 2 PM CDT 09/03/2025 12:58 PM CDT Ranjit K[facility]NEY LAB URINE ORDERABLES Final Result REYNALDO BLAKE ([place]) 1 [facility] [place] [address] * (ABNORMAL) Urine culture Urine (09/03/2025 12:52 PM CDT) Report Final Report: Greater than or equal to 100,000 colonies/mL of Proteus mirabilis Plus growth of clinically insignificant bacterial johnathan. (.) Comment:Testing performed by : [facility], [address] [facility], [place]., [address] Organism PROTEUS MIRABILIS CE TIGRE BLAKE ([place]) Organism PLUS GROWTH OF CLINICALLY INSIGNIFICANT JOHNATHAN. [facility] ([place]) Urine 09/03/2025 12:5 2 PM CDT 09/03/2025 4:03 PM CDT Narrative [facility]LDO [facility] ([place]) - 09/05/2025 10:51 AM CDT Urine culture reflexed based upon urinalysis results. Testing performed by [facility] ([phone]) Organism Antibiotic Method Susceptibility Proteus mirabilis Ampicillin INTERPRETATION Susceptible Proteus mirabilis Cefazolin INTERPRETATION Susceptible Proteus mirabilis Nitrofurantoin INTERPRETATION Resistant Proteus mirabilis Gentamicin INTERPRETATION Susceptible Proteus mirabilis Trimethoprim with Sulfamethoxazole I NTERPRETATION Resistant Proteus mirabilis Meropenem INTERPRETATION Susceptible Proteus mirabilis Cefepime INTERPRETATION Susceptible Proteus mirabilis Ciprofloxacin INTERPRETATION Resistant Proteus mirabilis Ceftazidime INTERPRETATION Susceptible Proteus mirabilis Ceftriaxone INTERPRETATION Susceptible Proteus mirabilis Piperacillin/Tazobactam INTERPRETATI ON Susceptible Proteus mirabilis Cephalexin INTERPRETATION Susceptible Proteus mirabilis Cefuroxime-axetil INTERPRETATION Susceptible Proteus mirabilis Cefdinir INTERPRETATION Susceptible Ranjit [facility] MICROBIOLOGY - GENERAL ORDERABLES Final Result Performing Organization Address City/[facility]/ZIP Co de Phone Number REYNALDO BLAKE ([place]) 1 [facility] [place] [address] * Phosphorus (09/03/2025 12:52 PM CDT) Phosphorus, pl 3.0 2.3 - 4.5 mg/dL Blood 09/03/2025 12:5 2 PM CDT 09/03/2025 1:02 PM CDT Ranjit [facility] LAB BLOOD ORDERABLES Final Result Performing Organization Address City/[facility]/ZIP Co de Phone Number REYNALDO BLAKE ([place]) 1 [facility] [place] [address] * Magnesium (09/03/2025 12:52 PM CDT) Magnesium 2.1 1.4 - 2.5 mg/dL Blood 09/03/2025 12:5 2 PM CDT 09/03/2025 1:02 PM CDT Ranjit [facility] BLOOD ORDERABLES Final Result [facility] ([place]) 1 [facility] Department [place] [address] * (ABNORMAL) Comprehensive metabolic panel (09/03/2025 12:52 PM CDT) Sodium 141 135 - 145 mmol/L Potassium, pl 4.5 3.3 - 4.9 mmol/L [facility] ([place]) Chloride 105 97 - 110 mmol/L [facility] ([place]) CO2 27 22 - 32 mmol/L [facility] ([place]) Anion gap 9 2 - 15 mmol/L [facility] ([place]) BUN 28(H) 6 - 25 mg/dL [facility] ([place]) Creatinine 0.97 0.80 - 1.30 mg/dL [facility] ([place]) Glucose 97 70 - 199 mg/dL [facility] ([place]) Comment: Interpretive Data Fasting glucose >/= 126 mg/dl is diagnostic for diabetes. Fasting is defined as no caloric intake [...] interpretive data was last revised 2022. Calcium 10.0 8.5 - 10.3 mg/dL [facility] ([place]) Bilirubin, total 0.3 0.1 - 1.2 mg/dL [facility] ([place]) Protein, pl 6.6 6.5 - 8.5 g/dL [facility] ([place]) Albumin 4.1 3.5 - 5.0 g/dL [facility] ([place]) Alk phos 87 40 - 130 Units/L [facility] ([place]) ALT 8 7 - 55 Units/L [facility] ([place]) AST 12 10 - 50 Units/L [facility] ([place]) Blood 09/03/2025 12:5 2 PM CDT 09/03/2025 1:02 PM CDT Ranjit [facility] BLOOD ORDERABLES Final Result REYNALDO BLAKE ([place]) 1 [facility] Department [place] [address] * FL Fluoro Guided Injection Shoulder Left (GLENOHUMERAL JOINT) (08/08/2025 10:28 AM CDT) Narrative [email or web address] - 08/08/2025 10:28 AM CDT The images from this study are not interpreted by Radiology. Please refer to the physician's procedure / OR operative note. us Fe Lange MD IMG FLUOROSCOPY PROCE DURES Final Result Performing Organization Address [facility] Co de Phone Number [email or web address] * MRI Shoulder Left WO Contrast (08/02/2025 11:35 AM CDT) Anatomical Region Laterality Modality Upper Extremities Left Magnetic Reson ance 08/02/2025 2:28 PM CDT Impressions 08/02/2025 3:15 PM CDT 1. Severe fatty atrophy and chronic denervation of the left deltoid, infraspinatus, teres minor, teres major, and subscapularis muscles. 2. Mild left rotator cuff and long head biceps tendinopathy without full-thickness rotator cuff tear or retraction. Dictated by: Wilberto Thomas M.D. The radiology attending physician has personally reviewed this study, and had reviewed and/or edited this written report and agrees with it. Electronically signed by: Jamal Calvin M.D. Narrative 08/02/2025 3:15 PM CDT EXAMINATION: 1. MRI left shoulder without contrast HISTORY: 74 old patient with history of posttraumatic left shoulder pain and stiffness and left arm weakness since 03/2025. Additional remote history of surgical intervention for left shoulder adhesive capsulitis. FINDINGS: Comparison with radiographs from 06/14/2025. MR examination of the left shoulder was performed with a local coil. Transverse, oblique coronal, and oblique sagittal short TR/TE and fast spin-echo images are obtained. There is a type 2 acromion. The coracoacromial ligament is normal. There is no subacromial spur. Mild acromioclavicular joint osteoarthritis. There is no subacromial subdeltoid bursitis. Severe fatty atrophy of the deltoid, infraspinatus, teres minor, teres major, and subscapularis muscles. Sparing of the posterior third of the deltoid, triceps, and supraspinatus muscles. Mild supraspinatus, infraspinatus, subscapularis, and intra-articular biceps tendinopathy. Small, 2 mm undersurface tear of the supraspinatus foot plate. No full thickness rotator cuff tear or tendon retraction. On this nonarthrographic evaluation: Degenerative blunting of the posterior and superior labrum. There is no glenohumeral chondrosis. There is a physiologic amount of fluid within the glenohumeral joint. No loose bodies are identified. The bone marrow signal is normal. Procedure Note Jamal Calvin MD - 08/02/2025 EXAMINATION: 1. MRI left shoulder without contrast HISTORY: 74 old patient with history of posttraumatic left shoulder pain and stiffness and left arm weakness since 03/2025. Additional remote history of surgical intervention for left shoulder adhesive capsulitis. FINDINGS: Comparison with radiographs from 06/14/2025. MR examination of the left shoulder was performed with a local coil. Transverse, oblique coronal, and oblique sagittal short TR/TE and fast spin-echo images are obtained. There is a type 2 acromion. The coracoacromial ligament is normal. There is no subacromial spur. Mild acromioclavicular joint osteoarthritis. There is no subacromial subdeltoid bursitis. Severe fatty atrophy of the deltoid, infraspinatus, teres minor, teres major, and subscapularis muscles. Sparing of the posterior third of the deltoid, triceps, and supraspinatus muscles. Mild supraspinatus, infraspinatus, subscapularis, and intra-articular biceps tendinopathy. Small, 2 mm undersurface tear of the supraspinatus foot plate. No full thickness rotator cuff tear or tendon retraction. On this nonarthrographic evaluation: Degenerative blunting of the posterior and superior labrum. There is no glenohumeral chondrosis. There is a physiologic amount of fluid within the glenohumeral joint. No loose bodies are identified. The bone marrow signal is normal. IMPRESSION: 1. Severe fatty atrophy and chronic denervation of the left deltoid, infraspinatus, teres minor, teres major, and subscapularis muscles. 2. Mild left rotator cuff and long head biceps tendinopathy without full-thickness rotator cuff tear or retraction. Dictated by: Wilberto Thomas M.D. The radiology attending physician has personally reviewed this study, and had reviewed and/or edited this written report and agrees with it. Electronically signed by: Jamal Calvin M.D. us Fe Lange MD IM MRI PROCEDURES Fi nal Result * XR Spine Thoracolumbar Junction 2 or More Views (08/02/2025 9:59 AM CDT) Anatomical Region Laterality Modality Spine N/A Computed Radiogr aphy 08/02/2025 10:0 8 AM CDT Impressions 08/02/2025 11:02 AM CDT 1. Intact spinal stimulator device. Dictated by: Corey Acosta M.D. The radiology attending physician has personally reviewed this study, and had reviewed and/or edited this written report and agrees with it. Electronically signed by: Henrique Jara M.D. Narrative 08/02/2025 11:02 AM CDT EXAMINATION: XR SPINE THORACOLUMBAR JUNCTION 2 OR MORE VIEWS HISTORY: MRI clearance FINDINGS: 4 views of the lumbar spine are provided for interpretation with comparison made to radiograph dated 12/29/2024. There is a spinal cord stimulator with generator pack overlying the posterior left pelvis. Lead tips enter the spinal canal and terminate at approximately T6-T7. The leads are intact, and there is no kinking. Unchanged multilevel degenerative disc disease of the lumbar spine. Lower lumbar facet osteoarthritis. Procedure Note Henrique Jara MD - 08/02/2025 EXAMINATION: XR SPINE THORACOLUMBAR JUNCTION 2 OR MORE VIEWS HISTORY: MRI clearance FINDINGS: 4 views of the lumbar spine are provided for interpretation with comparison made to radiograph dated 12/29/2024. There is a spinal cord stimulator with generator pack overlying the posterior left pelvis. Lead tips enter the spinal canal and terminate at approximately T6-T7. The leads are intact, and there is no kinking. Unchanged multilevel degenerative disc disease of the lumbar spine. Lower lumbar facet osteoarthritis. IMPRESSION: 1. Intact spinal stimulator device. Dictated by: Corey Acosta M.D. The radiology attending physician has personally reviewed this study, and had reviewed and/or edited this written report and agrees with it. Electronically signed by: Henrique Jara M.D. us Resten Flaca [facility] IMG XR PROCEDURES Final Result from Last 3 Months Insurance MEDICARE [facility] MEDICARE [facility] FEDERAL Advance Directives For more information, please contact: [phone] Documents on File Type Date Recorded Patient Cotton Jammer Expl anation ADVANCE DIRECTIVE 07/18/2025 9:54 PM POLST * Full Code (Latest Code Status on File) Date Activated Date Inactivated Comments 12/25/2024 7:35 PM 01/05/2025 10:40 PM * Full Code Date Activated Date Inactivated Comments 12/06/2024 10:46 PM 12/25/2024 7:35 PM * Full Code Date Activated Date Inactivated Comments 10/02/2024 7:33 PM 10/14/2024 6:47 PM Care Teams Agricultural Service Worker Relationship Specialty Start Date End Date Sj Benson MD [address] [facility] [place] [address] PCP - General Family Medicine 07/05/24
--- OUTSIDE RECORDS SUMMARY | 2025-10-24 11:49 | XMS_ITS | Encounter Summary ---
Author Organization [facility] Address [address] [place] [address] Phone Care Team Providers Care Burr Bench Hand Name Role Phone Sj Benson MD Primary Care Provider [phone] Encounter Details Date Type Department Care Team (Late st Contact Info) Description 09/11/2025 Results Follow-Up [facility] Medicine Orthopaedic Surgery [address] [facility] Advanced Medicine 12th [place] [address] [place] [address] Felix Meyers PA [address] [facility] [address] [place] [address] Dexa Axial Skeleton Bone Density 1 or 2 Site Social History Tobacco Use Types Packs/Day Years Used Date Smoking Tobacco: Never Passive Smoke Exposure: Never Smokeless Tobacco: Never [facility] Utilities Answer Date Recorded In the past 12 months has [employer], gas, oil, or water [employer] threatened to shut off services in your [...] week 12/28/2024 How often do you attend [facility] or congregational services? More than 4 times per year 12/28/2024 Do you belong to any clubs o r organizations such as advent groups, unions, fraternal or athletic groups, or [...] any time in the past 12 m [facility], were you homeless or living in a intermediate (including now)? No 12/28/2024 Personal Safety Answer Date Recorded Have you ever been in or are you currently in a harmful physical or emotional relationship or is someone making you feel afraid or unsafe? 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
--- OUTSIDE RECORDS SUMMARY | 2025-10-24 11:49 | XMS_ITS | Encounter Summary ---
Author Organization [facility] Address [address] [facility] [address] [place] [address] Phone Care Team Providers Care Jewel Bearing Facer Name Role Phone Sj Benson MD Primary Care Provider [phone] Encounter Details Date Type Department Care Team (Late st Contact Info) Description 10/04/2025 Results Follow-Up [facility] Medicine Urology [address] [facility] Advanced Medicine 11th [place] [address] [place] [address] Elham Bryson PA [address] [facility] [place] [address] Urine culture Urine, indwelling catheter Social History Tobacco Use Types Packs/Day Years Used Date Smoking Tobacco: Never Passive Smoke Exposure: Never Smokeless Tobacco: Never [facility] Utilities Answer Date Recorded In the past 12 months has [employer], gas, oil, or water [employer] threatened to shut off services in your [...] week 12/28/2024 How often do you attend [facility] or gnosticism services? More than 4 times per year 12/28/2024 Do you belong to any clubs o r organizations such as latter-day groups, unions, fraternal or athletic groups, or [...] any time in the past 12 m [facility], were you homeless or living in a snf (including now)? No 12/28/2024 Personal Safety Answer Date Recorded Have you ever been in or are you currently in a harmful physical or emotional relationship or is someone making you feel afraid or unsafe? 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
--- OUTSIDE RECORDS SUMMARY | 2025-10-24 11:49 | XMS_ITS | Encounter Summary ---
Author Organization [facility] Address [address] [place] [address] Care Team Providers Care Fan Runner Name Role Phone Sj Benson MD Primary Care Provider [phone] Encounter Details Date Type Department Care Team (Late st Contact Info) Description 09/05/2025 Results Follow-Up [facility] Emergency Department [address] [place] [address] Bladimir Valencia MD [address] [place] [id number] Urine culture Urine, Urine culture Urine, bladder Social History Tobacco Use Types Packs/Day Years Used Date Smoking Tobacco: Never Passive Smoke Exposure: Never Smokeless Tobacco: Never [facility] Utilities Answer Date Recorded In the past 12 months has [employer], gas, oil, or water company threatened [...] often do you attend chur ch or mormonism services? More than 4 times per year 12/28/2024 Do you belong to any clubs o r organizations such as amish groups, unions, fraternal or athletic groups, or [...] any time in the past 12 m [facility], were you homeless or living in a detention (including now)? No 12/28/2024 Personal Safety Answer Date Recorded Have you ever been in or are you currently in a harmful physical or emotional relationship or is someone making you feel afraid or unsafe? 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
--- OUTSIDE RECORDS SUMMARY | 2025-10-24 11:49 | XMS_ITS | Clinical Summary ---
Author Organization [facility] Address [address] [place] [address] Phone Care Team Providers Care Vitreo Retinal Surgeon Name Role Phone Unavailable Primary Care Provider [...] Active Active Problems No known active problems Social History Tobacco Use Types Packs/Day Years [...] 03/04/2017 Insurance MEDICARE PART A AND B [facility]
[2025-10-24] MEDS: cefTRIAXone 1 GM in SODIUM CHLORIDE 0.9% IV 50 ML 100 ML IVPB (11:50)
[2025-10-24 11:53] LABS: CRP 5.6 mg/dL (<1.0)
--- NOTE | 2025-10-24 12:20 | PC.NURSE ---
Per ANNE MARIE Daniels verbal instruction, fonseca irrigated by this RN. Fonseca flushed with 50mL of sterile water. 50mL of sterile water flowed out of fonseca, pink with mucus threads.
--- NOTE | 2025-10-24 12:27 | PC.NURSE ---
states pt. has a regular diet and swallows pills with no difficulty. Pt. is drowsy and confused at this time, pt. states his mouth is dry. Pt. given a mouth swab. Pt. able to stick his tongue out and move it side to side. Weak cough. Trialed with water and pt. coughed. Unable to administer oral tylenol at this time. ANNE MARIE Daniels notified and verbal order given for rectal tylenol.
[2025-10-24] MEDS: ACETAMINOPHEN 650 MG SUPPOSITORY RECTAL (12:35)
[2025-10-24] MEDS: WATER FOR IRRIGATION, STERILE 500 ML BOTTLE (12:38)
--- NOTE | 2025-10-24 12:39 | WPCEDHO ---
ED Hand Off Checklist All vitals saved: yes IV Site documented: yes All med administrations documented: yes Triage Note Triage Note Per EMS, pt is normally A&Ox 4. 10/24/25 09:55 NH reports pt is only A&Ox1. NH noted some blood around supra pubic catheter. Pt has a fonseca catheter in place. NH reports that pt was being treated for UTI and just finished meds. Pt c/o pain in Left shoulder and lower back Allergies Sulfa (Sulfonamide Antibiotics) Allergy (Unknown, Verified 10/14/24 15:51) Unknown Family History (Last Reviewed 06/27/25 @ 06:09 by Joi Aranda DO) Father Acute myocardial infarction Patient's father is Mother Patient's mother is Unknown Family history not known due to adoption Active Medications including assessments/comments Sodium Chloride (Normal Saline Iv) 1,000 mls @ 250 mls/hr IV CONT .Q4H FENG Stop: 10/24/25 18:09 Last Admin: 10/24/25 10:31 Dose: 250 mls/hr Documented By: CMTiffany Infusion/Titration Document 10/24/25 10:31 CMM (Rec: 10/24/25 10:31 CMM [id number]) Intake IV Site Peripheral Access Right Arm, Upper Container Volume 1,000 Waste Amount 0 Dosing Infusion Rate 250 Cumulative Dose Not Applicable Increase/Decrease Started Elapsed Time Elapsed Time ( 0m minutes) Administered/Completed Medications Discontinued Medications Acetaminophen (Acetaminophen 500 Mg Tablet) 1,000 mg PO ONCE STA Stop: 10/24/25 11:57 Last Admin: 10/24/25 12:24 Dose: Not Given Documented By: AKTHRIN Non-Admin Reason: Unable to Swallow Acetaminophen (Acetaminophen 650 Mg Suppository) Confirm Administered Dose 650 mg .ROUTE .STK-MED ONE Stop: 10/24/25 11:59 Last Admin: 10/24/25 12:38 Dose: Not Given Documented By: KATHRIN Non-Admin Reason: Duplicate Dose Acetaminophen (Acetaminophen 650 Mg Suppository) 650 mg RECTAL ONCE ONE Stop: 10/24/25 12:25 Last Admin: 10/24/25 12:35 Dose: 650 mg Documented By: KATHRIN Sodium Chloride (Normal Saline Iv) 2,000 mls @ 250 mls/hr IV CONT .Q8H STA Stop: 10/24/25 18:00 Last Admin: 10/24/25 10:30 Dose: Not Given Documented By: RISHABH Non-Admin Reason: Duplicate Dose Ceftriaxone Sodium 1 gm/ (Sodium Chloride) 50 mls @ 100 mls/hr IVPB ONCE STA Stop: 10/24/25 11:28 Last Infusion: 10/24/25 12:20 Dose: Infused Documented By: Admin: 10/24/25 11:50 Dose: 100 mls/hr Documented By: ANGELA Sterile Water (Water For Irrigation, Sterile 500 Ml Bottle) Confirm Administered Dose 500 ml .ROUTE .STK-MED ONE Stop: 10/24/25 12:01 Last Admin: 10/24/25 12:38 Dose: 50 ml Documented By: KATHRIN Comments: Used to irrigate fonseca catheter. Verbal order by ANNE MARIE Daniels Notes 10/24/25 12:27 Nurse Note by Ching Morgan states pt. has a regular diet and swallows pills with no difficulty. Pt. is drowsy and confused at this time, pt. states his mouth is dry. Pt. given a mouth swab. Pt. able to stick his tongue out and move it side to side. Weak cough. Trialed with water and pt. coughed. Unable to administer oral tylenol at this time. ANNE MARIE Daniels notified and verbal order given for rectal tylenol. Initialized on 10/24/25 12:27 - END OF NOTE 10/24/25 11:43 Nurse Note by Nicolette Nunez this RN attempted to start a second line while drawing blood cultures. unsuscessful attempt in L AC Initialized on 10/24/25 11:43 - END OF NOTE Interventions/Assessments IV / Saline Lock, Insert Start: 10/24/25 09:43 Freq: Status: Active Protocol: Document 10/24/25 10:30 CMM (Rec: 10/24/25 10:31 CMM [id number]) IV Assessment Peripheral Access Right Arm, Upper IV Catheter Access Initiated Before Arrival IV Insertion Date 10/24/25 Catheter Gauge 20 IV Insertion 1 Attempts IV Site Assessment WNL IV Care and WNL Maintenance PA: Cardiovascular Assessment Start: 10/24/25 09:43 Freq: Status: Active Protocol: Document 10/24/25 10:46 CMM (Rec: 10/24/25 10:47 CMM [id number]) Cardiovascular Assessment Cardiovascular None Symptoms Skin Description Pallor PA: Neurological Assessment Start: 10/24/25 09:43 Freq: Status: Active Protocol: Document 10/24/25 12:25 KJT (Rec: 10/24/25 12:26 KJT [id number]) Neurological Assessment Ability to Swallow Impaired PA: Respiratory Assessment Start: 10/24/25 09:43 Freq: Status: Active Protocol: Document 10/24/25 10:46 CMM (Rec: 10/24/25 10:47 CMM [id number]) Respiratory Assessment Symptoms None Effort Normal Oxygen Delivery Oxygen Delivery Room Air Last Vital Signs Temperature 100.9 F H 10/24/25 11:51 Pulse Rate 78 10/24/25 12:31 Respiratory Rate 21 H 10/24/25 12:31 Pulse Oximetry 98 10/24/25 12:31 Blood Pressure 102/70 10/24/25 12:31 Blood Pressure Mean 79 10/24/25 12:31 Blood Pressure Position Sitting 10/24/25 09:55 Oxygen Delivery Room Air 10/24/25 10:46 Weight 106.7 kg 10/24/25 09:55 Last Result - Abnormals Only WBC 21.9 K/mm3 (4.5-10.0) H 10/24/25 10:16 Hgb 13.3 g/dL (14.0-18.0) L D 10/24/25 10:16 MCHC 31.6 g/dl (32-36) L 10/24/25 10:16 RDW 15.4 % (11.5-14.5) H 10/24/25 10:16 Neutrophils % (Manual) 87 % (46-73) H 10/24/25 10:16 Lymphocytes % (Manual) 2 % (18-44) L 10/24/25 10:16 Abs Neuts (Manual) 20.14 K/mm3 (1.3-6.7) H 10/24/25 10:16 Abs Lymphs (Manual) 0.43 K/mm3 (1.1-4.5) L 10/24/25 10:16 Abs Monocytes (Manual) 1.31 K/mm3 (0.1-0.90) H 10/24/25 10:16 PT 15.7 Seconds (11.1-14.7) H 10/24/25 10:15 Sodium 136 mmol/L (137-145) L 10/24/25 10:16 BUN 31 mg/dL (9-20) H D 10/24/25 10:16 Creatinine 1.34 mg/dL (0.7-1.3) H 10/24/25 10:16 Estimated GFR 52 (59-) L 10/24/25 10:16 Glucose 116 mg/dL (65-110) H 10/24/25 10:16 Lactic Acid 3.3 mmol/L (0.7-2.0) H 10/24/25 10:16 C-Reactive Protein 5.6 mg/dL (<1.0) H 10/24/25 10:16 Urine Color Red (Yellow) H 10/24/25 10:44 Urine Appearance Cloudy (Clear) H 10/24/25 10:44 Urine Protein 3+ mg/dL (Negative) H 10/24/25 10:44 Ur Blood (Man) 3+ (Negative) H 10/24/25 10:44 Leukocyte Esterase Rfl 2+ TIFFANY/UL (Negative) H 10/24/25 10:44 Urine RBC >100 /hpf (0-2) H 10/24/25 10:44 Urine WBC >100 /hpf (0-3) H 10/24/25 10:44 Urine Bacteria 3+ /hpf H 10/24/25 10:44
--- NOTE | 2025-10-24 12:47 | PC.NURSE ---
Lori Rome RN called at this time to let her know that handoff was complete. pt can go upstairs at 1302
--- NOTE | 2025-10-24 12:50 | PC.NURSE ---
per Jeremiah KENNEY, wait on the drawing the lactic until his first liter of fluid is complete
--- NOTE | 2025-10-24 13:19 | ADMGEN ---
This patient, Ryan Delgado, was admitted to -. Patient/family oriented to hospital policies and general routines including ID bracelet, bed and alarms, visiting hours, pain management, procedures, bathroom and other care routines, personal items, smoking policy, room service/diet, and visiting hours. Information on how to activate the Rapid Response Team has been discussed. Patient/Family are encouraged to report perceived risks to care and to ask questions if they do not understand what they are told or what they should do.
--- NOTE | 2025-10-24 13:50 | P.HP_ITS ---
H&P: HPI History of Present Illness Date/Time: 10/24/25 13:50 Chief Complaint: Altered mental status Narrative: 75-year-old male past medical history of paraplegia after spinal surgery, neurogenic bladder, chronic Zhneg sacral wound, DVT, CKD and hyperlipidemia brought in from his assisted living for altered mental status. Patient also has blood tinged urine in his catheter. Per EMS the patient is slower to respond than normal. HPI is limited due to patient's altered mental status.Patient has no complaints. Of note patient had a UTI 3 weeks ago. Zheng was exchanged to the emergency room with return of 700 mls of hematuria. Lab work shows leukocytosis at 21.9, hemoglobin of 13.3 with previous hemoglobin being around 8.5, INR 1.2, sodium of 136, BUN of 31, creatinine of 1.34 with baseline being around 0.9, GFR 52, glucose 116, lactic acid 3.3, CRP 5.6, UA is red cloudy with 3+ blood 2+ leukocyte esterase over 100 RBCs over 100 wbc's and 3+ bacteria. EKG shows sinus rhythm. Patient receiving 2 L of NS in the emergency room and started on Rocephin. was consulted no need for CBI at this time. Review of Systems Review of Systems: ROS unobtainable: Yes unobtainable due to mental status PMFSH Past Medical History Medical History Sacral decubitus ulcer Right leg DVT Chronic anemia Tethered spinal cord Benign prostatic hyperplasia Chronic kidney disease Neurogenic bladder Neurogenic bowel, not elsewhere classified Paraplegia, incomplete Thoracic myelopathy Bladder stones Bladder cancer Requiring excision of tumor Surgical History Surgical History Spinal cord stimulator status History of bladder surgery excision of bladder tumor History of back surgery (10/02/24) posterior lumbar thoracic spinal fusion with instrumentation, 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 given compression of thoracic myelopathy at [place] Family History Family History Father Acute myocardial infarction, Onset Age: 57 Patient's father is Mother Patient's mother is Unknown Family history not known due to adoption Social History Social History (Updated 06/27/25 @ 06:10 by Joi Aranda DO) Social History: Surrogate medical decision maker: Gricelda Delgado, spouse. Code status: Full code. Smoking status: Never smoker Second hand tobacco smoke exposure: No Alcohol intake: never Substance use: never Substance use type: former substance user Lack of Transportation: No Lack of Food: Never True Current Housing: I Have Housing Concerned About Future Housing: No Difficulty Paying Gas/Electric Bills: No Difficulty Paying for Meds: No Currently Unemployed: No Education: High School Diploma/GED Difficulty w/ Childcare or Family Care: No Living arrangements: with family Additional living arrangements comments: The patient is . He used to live in [place] with his but is now in [place]. They have 3 children. Occupation/Education: retired Additional occupation/education comments: [employer] care concerns: No Meds Home Medications and Allergies Home Medications ?Medication ?Instructions ?Recorded ?Confirmed ?Type Florastor 1 cap PO DAILY 10/14/2402/13 History acetaminophen 2 tablet BYMOUTH TID Pain 10/24/25 History apixaban 5 mg tablet 5 mg PO BID #60 tabs 4 10/24/25 Rx finasteride 5 mg tablet 5 mg PO DAILY #30 tabs 11/0510/24/25 Rx tamsulosin 0.4 mg capsule 0.4 mg PO HS #30 caps 10/24/25 Rx duloxetine 30 mg capsule,delayed 30 mg PO BID 12/04/24 10/24/25 History release gabapentin 300 mg capsule 800 mg PO TID 12/04/2410/24 History arginine 7 gram-glutam 7 1 packet PO BID 06/27/2502/13 History gram-CaHMB 1.5 qglm-ludyd-ol-min oral pwd pkt (Gurpreet (with collagen)) cyanocobalamin (vitamin B-12) 1,000 mcg PO DAILY 06/2710/24/25 History 1,000 mcg capsule diclofenac sodium 1 % topical gel 2 g topical DAILY [place] N pain 06/27/25 10/24/25 History (Aspercreme Arthritis Pain) guaifenesin 600 mg tablet, 600 mg PO BID 06/27/2502/13 History extended release 12 hr (Mucinex) lidocaine 4 % topical patch 1 patch transdermal Q12H 0 06/27/25 10/24/25 History (Lidocaine Pain Relief) methocarbamol 750 mg tablet 1,500 mg PO QID 06/27/25 1 12/25/24 History naloxone 0.4 mg/mL injection 0.4 mg IM Q2M PRN opioid reversal 06/27/25 10/24/25 History syringe oxycodone 5 mg tablet 10 mg PO Q6H PRN Pain 10/24/25 History pantoprazole 40 mg tablet,delayed 40 mg PO DAILY 06/2710/24/25 History release baclofen 10 mg tablet 10 mg PO BID 10/24/25 History Allergies Allergy/AdvReac Type Severity Reaction Status Date / Time Sulfa (Sulfonamide Allergy Unknown Unknown Verified 10/24/25 13:25 Antibiotics) Vital Signs Vital Signs - 24 hr 10/24/25 09:55 10/24/25 10:07 10/24/25 10:45 Temperature 98.2 F Pulse Rate 87 86 83 Respiratory Rate 20 20 18 Blood Pressure 122/72 122/72 Pulse Oximetry 100 Oxygen Delivery Room Air 10/24/25 10:46 10/24/25 10:46 10/24/25 11:00 Temperature Pulse Rate 84 83 Respiratory Rate 22 H 29 H Blood Pressure 109/66 Pulse Oximetry Oxygen Delivery Room Air 10/24/25 11:01 10/24/25 11:51 10/24/25 11:52 Temperature 100.9 F H Pulse Rate 83 75 Respiratory Rate 14 24 H Blood Pressure 108/64 125/77 Pulse Oximetry 100 Oxygen Delivery 10/24/25 12:01 10/24/25 12:31 10/24/25 12:32 Temperature Pulse Rate 79 78 79 Respiratory Rate 21 H 21 H 23 H Blood Pressure 109/69 102/70 102/70 Pulse Oximetry 100 98 97 Oxygen Delivery 10/24/25 13:00 Temperature Pulse Rate 77 Respiratory Rate 22 H Blood Pressure 96/70 L Pulse Oximetry 99 Oxygen Delivery Exam Narrative: General: well appearing, appears stated age. No acute distress HEENT: normocephalic, atraumatic. Mucous membranes moist. EOMI, PERRLA, bilateral sclera anicteric, no conjunctival injection. Neck supple without JVD, lymphadenopathy, or bruit. Respiratory: clear bilaterally. No rales/rhonic/wheezes. Cardiovascular: Regular rate and rhythm, normal S1-S2. No murmurs, rubs, or clicks. PMI is nondisplaced, capillary refill less than 3 second. Abdomen: Soft, round, no pulsatile masses, nondistended and nontender. No rebound, no guarding. Bowel sounds present to all four quadrants. No high pitch or tinkling sounds, resonant to percussion. Extremities: No cyanosis, clubbing, or edema present. Pulses are palpable 2/2. Lower extremities contracted Neuro: Alert and orientated x 2. PERRLA. Cranial nerves 2-12 intact without focal deficit. Skin: Warm, dry, and intact, without rash, erythema, or lesion. Psych: pleasant, cooperative, normal speech, normal affect, no hallucinations, no dysarthia Zheng catheter yellow urine Sacral ulcer Results Labs Labs: Short CBC 10/24/25 Range/Units 10:16 WBC 21.9 H (4.5-10.0) K/mm3 Hgb 13.3 L D (14.0-18.0) g/dL Hct 42.1 (42.0-52.0) % Plt Count 298 (150-375) k/mm3 BMP 10/24/25 10:16 Sodium 136 L Potassium 4.7 Chloride 106 Carbon Dioxide 22 BUN 31 H D Creatinine 1.34 H Glucose 116 H Calcium 9.8 Cardiac Enzymes 10/24/25 Range/Units 10:16 Troponin I < 0.012 (0.000-0.034) ng/mL Liver Function 10/24/25 Range/Units 10:16 Total Bilirubin 0.5 (0.2-1.3) mg/dL AST 21 (17-59) U/L ALT 18 (6-50) U/L Alkaline Phosphatase 79 (38-126) U/L Albumin 4.4 (3.5-5.1) g/dL Urine 10/24/25 Range/Units 10:44 Urine Color Red H (Yellow) Urine Appearance Cloudy H (Clear) Urine pH 8.0 (5.0-9.0) Ur Specific [place] 1.010 (1.001-1.035) Urine Protein 3+ H (Negative) mg/dL Urine Glucose (UA) Negative (Negative) mg/dL Quality VTE Prophylaxis VTE prophylaxis: mechanical ordered and pharmacologic ordered Assessment and Plan Assessment and plan (1) Urinary tract infection: Qualifiers: Indwelling urinary catheter type: indwelling urethral catheter Urinary tract infection type: catheter-associated UTI Code(s): N39.0 - Urinary tract infection, site not specified Status: Acute Assessment and Plan: With hematuria Urology consulted IV Rocephin Culture and sensitivity pending Blood cultures pending Sepsis bolus (2) Leukocytosis: Code(s): D72.829 - Elevated white blood cell count, unspecified Status: Acute Assessment and Plan: Blood cultures pending Urinary Culture and sensitivity pending Sepsis bolus Lactic acid 3.3 followed by 3.0 Repeat lactic acid in the a.m. (3) CKD (chronic kidney disease): Code(s): N18.9 - Chronic kidney disease, unspecified Status: Acute Assessment and Plan: Creatinine at baseline Continue monitor due to severe dehydration IVF (4) Neurogenic dysfunction of the urinary bladder: Code(s): N31.9 - Neuromuscular dysfunction of bladder, unspecified Status: Acute Assessment and Plan: Chronic Zheng exchange in ED (5) Benign prostatic hyperplasia: Qualifiers: Lower urinary tract symptom detail: urinary retention Lower urinary tract symptom presence: symptoms present Qualified Code(s): N40.1 - Benign prostatic hyperplasia with lower urinary tract symptoms; R33.8 - Other retention of urine Code(s): N40.0 - Benign prostatic hyperplasia without lower urinary tract symptoms Status: Acute Assessment and Plan: Continue Proscar and Flomax (6) Paraplegia, incomplete: Code(s): G82.22 - Paraplegia, incomplete Status: Acute Assessment and Plan: Sacral ulcer Continue baclofen, Neurontin, Robaxin, oxycodone Wound care consulted Specialty bed (7) Postoperative deep vein thrombosis (DVT): Code(s): T81.89XA - Other complications of procedures, not elsewhere classified, initial encounter; I82.409 - Acute embolism and thrombosis of unspecified deep veins of unspecified lower extremity Status: Acute Assessment and Plan: Continue Eliquis Time Spent with Patient Time with patient: less than 45 minutes Hospitalist MIPS Advance Care Plan I have confirmed that the patient's Advanced Care Plan is present, code status is documented, or surrogate decision maker is listed in patient medical record.: Yes Medication Reconciliation I have utilized all available resources to obtain, update and review the patients current medications (includes all prescriptions, OTC, herbals, cannabis, and nutritional supplements).: Yes
--- NOTE | 2025-10-24 14:10 | WNDPHOTO ---
PHOTO ONLY - See Nursing Notes and/ or assessments for documentation.
--- NOTE | 2025-10-24 14:12 | WNDPHOTO ---
PHOTO ONLY - See Nursing Notes and/ or assessments for documentation.
--- NOTE | 2025-10-24 16:14 | WPDURCON ---
Assessment and Plan Assessment and plan (1) Urinary tract infection: Qualifiers: Encounter type: initial encounter Indwelling urinary catheter type: indwelling urethral catheter Urinary tract infection type: catheter-associated UTI Qualified Code(s): T83.511A - Infection and inflammatory reaction due to indwelling urethral catheter, initial encounter; N39.0 - Urinary tract infection, site not specified Code(s): N39.0 - Urinary tract infection, site not specified Status: Acute (2) Altered mental status: Code(s): R41.82 - Altered mental status, unspecified Status: Acute (3) Chronic indwelling Fonseca catheter: Code(s): Z97.8 - Presence of other specified devices Status: Acute (4) Neurogenic dysfunction of the urinary bladder: Code(s): N31.9 - Neuromuscular dysfunction of bladder, unspecified Status: Acute Plan -ua concerning for infection. agree with empiric antibiotics and adjust to culture driven antibiotics once resulted. -maintain fonseca catheter. Last changed 10/24/25 in ER. catheter flushed. no clots. monitor for appropriate output. -WBC 21.9. trend -cr 1.34 with a baseline in the 0.90~. trend -If worsening wbc and cr then will get a BEAR tomorrow. -Patient can follow up with catheter management with his normal urologist at [facility] after discharge. case discussed with Dr. Woody Urology Consult Note HPI Date Seen: 10/24/25 Requesting Physician: Mikal Bates MD Primary Care Provider: Sj Benson, Consult Narrative Narrative: Ryan Delgado is a 75 year old male with history of CKD, neurogenic bladder with chronic indwelling Fonseca, HLD, paraplegia since 2023 after spinal surgery follow-up. DVT on Eliquis, presents to the ER via EMS from [facility] for evaluation of altered mental status. EMS states patient has been slower to respond and hearing more lethargic. Patient had urodynamics at [facility] 8 days ago. He was given one dose of prophylactic cipro with that. Also reports pink tinged blood in his urinary catheter. Patient catheter is not draining. Catheter was changed out in the ER and they immediately got back 800ml of bloody urine. Catheter was flushed and now has clear pink tinged urine. Catheter draining well now. Review of Systems Review of Systems: ROS unobtainable: Yes unobtainable due to mental status [facility] Past Medical History Medical History Sacral decubitus ulcer Right leg DVT Chronic anemia Tethered spinal cord Benign prostatic hyperplasia Chronic kidney disease Neurogenic bladder Neurogenic bowel, not elsewhere classified Paraplegia, incomplete Thoracic myelopathy Bladder stones Bladder cancer Requiring excision of tumor Surgical History Surgical History Spinal cord stimulator status History of bladder surgery excision of bladder tumor History of back surgery (10/02/24) posterior lumbar thoracic spinal fusion with instrumentation, 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 given compression of thoracic myelopathy at [place] Family History Family History Father Acute myocardial infarction, Onset Age: 57 Patient's father is Mother Patient's mother is Unknown Family history not known due to adoption Social History Social History (Updated 06/27/25 @ 06:10 by Joi Aranda DO) Social History: Surrogate medical decision maker: Gricelda Delgado, spouse. Code status: Full code. Smoking status: Never smoker Second hand tobacco smoke exposure: No Alcohol intake: never Substance use: never Substance use type: former substance user Lack of Transportation: No Lack of Food: Never True Current Housing: I Have Housing Concerned About Future Housing: No Difficulty Paying Gas/Electric Bills: No Difficulty Paying for Meds: No Currently Unemployed: No Education: High School Diploma/GED Difficulty w/ Childcare or Family Care: No Living arrangements: with family Additional living arrangements comments: The patient is . He used to live in [place] with his but is now in [place]. They have 3 children. Occupation/Education: retired Additional occupation/education comments: [employer] Spiritual care concerns: No Meds Home Medications and Allergies Home Medications ?Medication ?Instructions ?Recorded ?Confirmed ?Type Florastor 1 cap PO DAILY 10/14/24 10/24/25 History acetaminophen 2 tablet BYMOUTH TID Pain 10/14/24 10/24/25 History apixaban 5 mg tablet 5 mg PO BID #60 tabs 11/05/24 10/24/25 Rx finasteride 5 mg tablet 5 mg PO DAILY #30 tabs 11/05/24 10/24/25 Rx tamsulosin 0.4 mg capsule 0.4 mg PO HS #30 caps 11/05/24 10/24/25 Rx duloxetine 30 mg capsule,delayed 30 mg PO BID 12/04/24 10/24/25 History release gabapentin 300 mg capsule 800 mg PO TID 12/04/24 10/24/25 History arginine 7 gram-glutam 7 1 packet PO BID 06/27/25 10/24/25 History gram-CaHMB 1.5 cxrc-cqpyb-vr-min oral pwd pkt (Gurpreet (with collagen)) cyanocobalamin (vitamin B-12) 1,000 mcg PO DAILY 06/27/25 10/24/25 History 1,000 mcg capsule diclofenac sodium 1 % topical gel 2 g topical DAILY PRN pain 06/27/25 10/24/25 History (Aspercreme Arthritis Pain) guaifenesin 600 mg tablet, 600 mg PO BID 06/27/25 10/24/25 History extended release 12 hr (Mucinex) lidocaine 4 % topical patch 1 patch transdermal Q12H 06/27/25 10/24/25 History (Lidocaine Pain Relief) methocarbamol 750 mg tablet 1,500 mg PO QID 06/27/25 10/24/25 History naloxone 0.4 mg/mL injection 0.4 mg IM Q2M PRN opioid reversal 06/27/25 10/24/25 History syringe oxycodone 5 mg tablet 10 mg PO Q6H PRN Pain 06/27/25 10/24/25 History pantoprazole 40 mg tablet,delayed 40 mg PO DAILY 06/27/25 10/24/25 History release baclofen 10 mg tablet 10 mg PO BID 10/24/25 10/24/25 History Allergies Allergy/AdvReac Type Severity Reaction Status Date / Time Sulfa (Sulfonamide Allergy Unknown Unknown Verified 10/24/25 13:25 Antibiotics) Vital Signs Vital Signs - 24 hr 10/24/25 09:55 10/24/25 10:07 10/24/25 10:45 Temperature 98.2 F Pulse Rate 87 86 83 Respiratory Rate 20 20 18 Blood Pressure 122/72 122/72 Pulse Oximetry 100 Oxygen Delivery Room Air 10/24/25 10:46 10/24/25 10:46 10/24/25 11:00 Temperature Pulse Rate 84 83 Respiratory Rate 22 H 29 H Blood Pressure 109/66 Pulse Oximetry Oxygen Delivery Room Air 10/24/25 11:01 10/24/25 11:51 10/24/25 11:52 Temperature 100.9 F H Pulse Rate 83 75 Respiratory Rate 14 24 H Blood Pressure 108/64 125/77 Pulse Oximetry 100 Oxygen Delivery 10/24/25 12:01 10/24/25 12:31 10/24/25 12:32 Temperature Pulse Rate 79 78 79 Respiratory Rate 21 H 21 H 23 H Blood Pressure 109/69 102/70 102/70 Pulse Oximetry 100 98 97 Oxygen Delivery 10/24/25 13:00 10/24/25 14:00 10/24/25 14:00 Temperature 96.0 F L 96.0 F L Pulse Rate 77 80 Respiratory Rate 22 H 17 Blood Pressure 96/70 L Pulse Oximetry 99 98 Oxygen Delivery 10/24/25 14:42 Temperature Pulse Rate Respiratory Rate Blood Pressure 128/74 Pulse Oximetry Oxygen Delivery Exam Const: General: no acute distress Other: ams. sleeping with mouth open. Eyes: General: appearance normal, both eyes and all related structures Resp: Effort & Inspection: normal respiratory effort Urinary Catheter: Urinary Catheter: patent and draining and urine clear (pink tinged after being flushed) Skin: General skin exam: normal color Results Labs 10/24/25 10:16 10/24/25 10:16 Labs: Short CBC 10/24/25 Range/Units 10:16 WBC 21.9 H (4.5-10.0) K/mm3 Hgb 13.3 L D (14.0-18.0) g/dL Hct 42.1 (42.0-52.0) % Plt Count 298 (150-375) k/mm3 [facility] 10/24/25 10:16 Sodium 136 L Potassium 4.7 Chloride 106 Carbon Dioxide 22 BUN 31 H D Creatinine 1.34 H Glucose 116 H Calcium 9.8 Cardiac Enzymes 10/24/25 Range/Units 10:16 Troponin I < 0.012 (0.000-0.034) ng/mL Liver Function 10/24/25 Range/Units 10:16 Total Bilirubin 0.5 (0.2-1.3) mg/dL AST 21 (17-59) U/L ALT 18 (6-50) U/L Alkaline Phosphatase 79 (38-126) U/L Albumin 4.4 (3.5-5.1) g/dL Urine 10/24/25 Range/Units 10:44 Urine Color Red H (Yellow) Urine Appearance Cloudy H (Clear) Urine pH 8.0 (5.0-9.0) Ur Specific [place] 1.010 (1.001-1.035) Urine Protein 3+ H (Negative) mg/dL Urine Glucose (UA) Negative (Negative) mg/dL
--- NOTE | 2025-10-24 16:30 | PCSTNOTE ---
Attempted bedside swallow evaluation; however, per RN (Lori), pt not appropriate for a bedside swallow evaluation at this time due to significantly reduced alertness. ST will re-attempt bedside swallow evaluation on 10/25/25.
[2025-10-24] MEDS: SODIUM CHLORIDE 0.9% IV 1,000 ML 125 ML IV CONT (18:03)
--- NOTE | 2025-10-24 22:20 | PC.NURSE ---
Celine Francisco NP was up to see Pt. and she reviewed wound pictures of sacrum. Celine requested Pt. to have a speciality mattress. 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 [employer] ordered with confirmation number [id number].
[2025-10-25] VITALS: BP 138/59; PULSE 75; RESP 16; TEMP 37.1; O2SAT 99
[2025-10-25] MEDS: SODIUM CHLORIDE 0.9% IV 1,000 ML 125 ML IV CONT ×3 (01:51→20:54)
[2025-10-25 04:00] VITALS: BP 149/62; PULSE 78; RESP 18; TEMP 38.3; O2SAT 97
[2025-10-25 06:32] VITALS: TEMP 37.3
[2025-10-25 06:36] LABS: Hematocrit 30.5 % (42.0-52.0); Hemoglobin 9.4 g/dL (14.0-18.0); Immature Granulocyte Percent A 0.4 % (0-0.5); Lymphocytes Absolute Auto 1.66 K/mm3 (0.9-3.2); Mean Corpuscular HGB Conc 30.8 g/dl (32-36); Mean Corpuscular Hemoglobin 26.8 pg (26-34); Mean Corpuscular Volume 86.9 fl (80-100); Nucleated Red Blood Cells Absolute Auto 0.000 K/mm3 (0.0-0.012); Nucleated Red Blood Cells Perc 0.0 % (0.0-0.2); Platelet Count Result 243 k/mm3 (150-375); Red Blood Count 3.51 M/mm3 (4.6-6.20); White Blood Count 13.5 K/mm3 (4.5-10.0)
[2025-10-25 06:46] LABS: INR 1.5; Prothrombin Time 18.0 Seconds (11.1-14.7)
[2025-10-25 06:47] LABS: Partial Thromboplastin Time 40.9 Seconds (22.3-36.8)
[2025-10-25 06:50] LABS: Alanine Aminotransferase 12 U/L (6-50); Albumin Level 3.2 g/dL (3.5-5.1); Alkaline Phosphatase 72 U/L (38-126); Anion Gap 3 mmol/L (4-12); Aspartate Amino Transferase 16 U/L (17-59); Bilirubin,Total 0.4 mg/dL (0.2-1.3); Blood Urea Nitrogen 24 mg/dL (9-20); Calcium 9.1 mg/dL (8.4-10.2); Carbon Dioxide 23 mmol/L (22-30); Chloride 113 mmol/L (98-107); Estimated CRCL calculation 64 ml/min; Estimated Glomerular Filt Rate > 60; Glucose 120 mg/dL (65-110); Potassium 3.8 mmol/L (3.4-5.0); Sodium 139 mmol/L (137-145); Total Protein 5.7 g/dL (6.3-8.2)
--- NOTE | 2025-10-25 08:23 | PCSTNOTE ---
Please refer to the Bedside Swallow Evaluation in the EMR. Please note, silent aspiration cannot be ruled out at bedside. The patient is a 75 year old male admitted with AMS from his present assisted living. Orders received to complete a BSE due to concerns for aspiration risk. The patient was positioned upright in bed and presented the following consistencies: 5cc/tsp thin liquid, thin liquid via straw, puree and solid consistencies. Oral Stage: Timely oral preparation and transit for all consistencies without noted residual. Pharyngeal Stage: When presented all consistencies swallow initiation was timely overall without noted CSA. The patient had one episode of throat clearing with initial 5cc/tsp thin liquid but suspect mouth was dry, all following trials even sequential straw drinks were completed without CSA. Recommend: 1. Regular Diet / Level 7 2. Thin liquid / Level 0 3. Upright all meals 4. Frequent observation Thank you for the consult
[2025-10-25] MEDS: cefTRIAXone 1 GM in SODIUM CHLORIDE 0.9% IV 50 ML 100 ML IVPB (09:27)
[2025-10-25] MEDS: oxyCODONE HCL (*CRX) 5 MG TAB IR 10 MG PO ×2 (11:02→20:52)
[2025-10-25] MEDS: LIDOCAINE 5% PATCH 1 PATCH TRANSDERM (11:52)
[2025-10-25] MEDS: GABAPENTIN 400 MG CAPSULE 800 MG PO ×2 (11:55→16:34)
[2025-10-25] MEDS: MEROPENEM 1 GM in SODIUM CHLORIDE 0.9% IV 100 ML 200 ML IVPB ×2 (11:57→20:53)
[2025-10-25 13:44] VITALS: BP 131/55; PULSE 73; RESP 19; TEMP 36.3; O2SAT 97
--- NOTE | 2025-10-25 14:03 | WPDUROPN2 ---
Progress Note: A&P Assessment and Plan (1) Urinary tract infection: Qualifiers: Encounter type: initial encounter Indwelling urinary catheter type: indwelling urethral catheter Urinary tract infection type: catheter-associated UTI Qualified Code(s): T83.511A - Infection and inflammatory reaction due to indwelling urethral catheter, initial encounter; N39.0 - Urinary tract infection, site not specified Code(s): N39.0 - Urinary tract infection, site not specified Status: Acute (2) Altered mental status: Code(s): R41.82 - Altered mental status, unspecified Status: Acute (3) Chronic indwelling Fonseca catheter: Code(s): Z97.8 - Presence of other specified devices Status: Acute (4) Neurogenic dysfunction of the urinary bladder: Code(s): N31.9 - Neuromuscular dysfunction of bladder, unspecified Status: Acute Plan -ua concerning for infection. agree with empiric antibiotics and adjust to culture driven antibiotics once resulted. -maintain fonseca catheter. Last changed 10/24/25 in ER. catheter flushed. no clots. monitor for appropriate output. -WBC 21.9 that is down to 13.5 today -cr 1.34 on presentation and has now dropped to 1.07 today (with a baseline in the 0.90~). trend -Patient can follow up with catheter management with his normal urologist at [facility] after discharge. Subjective Subjective Date/Time Seen: 10/25/25 14:03 Interval history: patient lying in bed comfortably and is a/ox3 today. Patient is slightly forgetful. reports he feels much better today. Review of Systems Review of Systems: ROS unobtainable: Yes other (patient reports he is feeling much better today. He is slightly forgetful) Exam Const: General: no acute distress Other: patient is laying comfortably in bed. He is alert and oriented but slightly forgetful. Eyes: General: appearance normal, both eyes and all related structures Resp: Effort & Inspection: normal respiratory effort Urinary Catheter: Urinary Catheter: patent and draining and urine clear ( yellow) Skin: General skin exam: normal color Objective Data Vital Signs Vital Signs: Vital Signs - 24 hr 10/24/25 14:42 10/24/25 16:35 10/24/25 20:00 Temperature 99.0 F 100.7 F H Pulse Rate 83 Respiratory Rate 16 Blood Pressure 128/74 114/59 L Pulse Oximetry 96 10/24/25 22:26 10/25/25 00:00 10/25/25 04:00 Temperature 97.6 F 98.8 F 100.9 F H Pulse Rate 75 78 Respiratory Rate 16 18 Blood Pressure 138/59 L 149/62 H Pulse Oximetry 99 97 10/25/25 06:32 10/25/25 13:44 Temperature 99.2 F 97.3 F L Pulse Rate 73 Respiratory Rate 19 Blood Pressure 131/55 L Pulse Oximetry 97 Intake/Output Intake/Output: Intake & Output 10/22/25 10/23/25 10/24/25 10/25/25 23:59 23:59 23:59 23:59 Intake Total 962.5 2162.9 Output Total 825 1250 Balance 137.5 912.9 Meds/Results Medications: Active Medications Generic Name Dose Route Start Last Admin Trade Name Freq PRN Reason Stop Dose Admin Acetaminophen 650 mg 10/24/25 13:57 Acetaminophen 325 Mg Tablet PO Q4H PRN Mild Pain (1-3) or Fever Apixaban 5 mg 10/24/25 21:00 Apixaban 5 Mg Tablet PO On Hold: 10/25/25 10:02 Q12HR FENG Baclofen 10 mg 10/24/25 17:00 Baclofen 10 Mg Tablet PO BID [facility] Cyanocobalamin 1,000 mcg 10/25/25 09:00 Cyanocobalamin 1,000 Mcg Tablet PO DAILY [facility] Diclofenac Sodium 1 applic 10/24/25 13:56 Diclofenac Sodium 1% 100 Gm Gel (*Bkc) TOPICAL DAILY PRN Pain Duloxetine HCl 30 mg 10/24/25 17:00 Duloxetine Hcl 30 Mg Capsule.Dr PO BID FENG Finasteride 5 mg 10/25/25 09:00 Finasteride 5 Mg Tablet PO DAILY [facility]ENG Gabapentin 800 mg 10/24/25 17:00 10/25/25 11:55 Gabapentin 400 Mg Capsule PO 800 mg TID FENG Administration Guaifenesin 600 mg 10/25/25 17:00 Guaifenesin 12 Hr 600 Mg Tabcr PO BID FENG Sodium Chloride 1,000 mls @ 125 mls/hr 10/24/25 12:25 10/25/25 09:26 Normal Saline Iv IV CONT 125 mls/hr .Q8H FENG Administration Meropenem 1 gm/ Sodium 100 mls @ 200 mls/hr 10/25/25 12:00 10/25/25 11:57 Chloride IVPB 200 mls/hr Q8H [facility] Administration Lidocaine 1 patch 10/25/25 10:10 10/25/25 11:52 Lidocaine 5% Patch TRANSDERM 1 patch DAILY [facility]ENG Administration Methocarbamol 1,500 mg 10/24/25 17:00 10/25/25 11:56 Methocarbamol 750 Mg Tablet PO 1,500 mg QID [facility] Administration Ondansetron HCl 4 mg 10/24/25 12:22 Ondansetron Inj 4 Mg/2 Ml Vial IV PUSH Q4H PRN Nausea Oxycodone HCl 10 mg 10/24/25 13:56 10/25/25 11:02 Oxycodone Hcl (*Crx) 5 Mg Tab Ir PO 10 mg Q6H PRN Administration Pain 7-10 Pantoprazole Sodium 40 mg 10/25/25 09:00 Pantoprazole 40 Mg Tablet PO DAILY [facility] Tamsulosin HCl 0.4 mg 10/24/25 21:00 10/24/25 21:36 Tamsulosin Hcl 0.4 Mg Capsule PO Not Given [facility] Labs Labs: Laboratory Results - last 24 hr 10/24/25 10/25/25 14:34 06:25 WBC 13.5 H RBC 3.51 L Hgb 9.4 L D Hct 30.5 L MCV 86.9 MCH 26.8 MCHC 30.8 L RDW 15.5 H Plt Count 243 MPV 9.2 Immature Gran % (Auto) 0.4 Neut % (Auto) 73.6 H Lymph % (Auto) 12.3 L [place] % (Auto) 13.3 H Eos % (Auto) 0.2 Baso % (Auto) 0.2 Lymph # (Auto) 1.66 [place] # (Auto) 1.8 H Eos # (Auto) 0.0 Baso # (Auto) 0.0 Abs Immat Gran (auto) 0.05 H Absolute Neuts (auto) 9.9 H Absolute Nucleated RBC 0.000 Nucleated RBC % 0.0 PT 18.0 H INR 1.5 APTT 40.9 H Sodium 139 Potassium 3.8 Chloride 113 H Carbon Dioxide 23 Anion Gap 3 L BUN 24 H Creatinine 1.07 Estim Creat Clear Calc 64 Estimated GFR > 60 Glucose 120 H Lactic Acid 3.0 H 1.5 Calcium 9.1 Total Bilirubin 0.4 AST 16 L ALT 12 Alkaline Phosphatase 72 Total Protein 5.7 L Albumin 3.2 L
[2025-10-25 14:52] VITALS: BMI 31.4
[2025-10-25] MEDS: guaiFENesin 12 HR 600 MG TABCR PO (16:34)
[2025-10-25] MEDS: BACLOFEN 10 MG TABLET PO (16:34)
--- NOTE | 2025-10-25 18:47 | P.PNIM_ITS ---
Assessment and Plan Assessment and Plan (1) Sepsis without septic shock: Code(s): A41.9 - Sepsis, unspecified organism Status: Acute Assessment and Plan: Sepsis secondary to UTI, fever, leukocytosis, lactic acidosis, AMS * IV fluids * IV ceftriaxone changed to meropenem * Lactic acidosis resolved * Blood cultures pending * UA pending (2) Urinary tract infection: Qualifiers: Urinary tract infection type: catheter-associated UTI Indwelling urinary catheter type: indwelling urethral catheter Code(s): N39.0 - Urinary tract infection, site not specified Status: Acute Assessment and Plan: HX recurrent UTI's secondary to chronic indwelling fonseca catheter hematuria POA no clots * Urology consulted * meropenem IV Q8hr based off previous UA culture sensitivities * Culture and sensitivity pending * Blood cultures pending * Catheter changed in the ED (3) Hematuria: Code(s): R31.9 - Hematuria, unspecified Status: Acute Assessment and Plan: * Resolved * Resumed Eliquis (4) Neurogenic dysfunction of the urinary bladder: Code(s): N31.9 - Neuromuscular dysfunction of bladder, unspecified Status: Acute Assessment and Plan: * Chronic Fonseca exchange in ED * Urology following (5) CKD (chronic kidney disease): Code(s): N18.9 - Chronic kidney disease, unspecified Status: Acute Assessment and Plan: Creatinine at baseline * gentle IV fluid * avoid nephrotoxins * trend renal function (6) Benign prostatic hyperplasia: Qualifiers: Lower urinary tract symptom presence: symptoms present Lower urinary tract symptom detail: urinary retention Qualified Code(s): N40.1 - Benign prostatic hyperplasia with lower urinary tract symptoms; R33.8 - Other retention of urine Code(s): N40.0 - Benign prostatic hyperplasia without lower urinary tract symptoms Status: Acute Assessment and Plan: * Continue Proscar and Flomax (7) Paraplegia, incomplete: Code(s): G82.22 - Paraplegia, incomplete Status: Acute Assessment and Plan: * Continue baclofen, Neurontin, Robaxin, oxycodone * Specialty bed (8) Sacral wound: Code(s): S31.000A - Unspecified open wound of lower back and pelvis without penetration into retroperitoneum, initial encounter Status: Acute Assessment and Plan: * Wound consulted * Daily wound care ordered * offload * Q2 hr turns * wound consulted * specialty bed (9) History of DVT (deep vein thrombosis): Code(s): Z86.718 - Personal history of other venous thrombosis and embolism Status: Acute Assessment and Plan: * continued Eliquis Plan Code status: Full code per patient DVT prophylaxis: Eliquis Stress ulcer prophylaxis: NA PT/OT notes: Bedbound/SNF Disposition: patient continues admission to the medical unit for sepsis secondary to urinary tract infection will continue with current IV antibiotics pending final cultures and sensitivities patient's hematuria has resolved urology is following once patient is medically stable plan will be to return to a prison facility. Medical Record Review I have reviewed the following patient records and this information was taken into consideration when formulating the assessment and plan.: previous labs, previous ER visits and previous hospitalizations Consultations Consultations: I have discussed the care of this pt with the consulting providers. Time Spent With Patient Time with patient: 25 - 35 minutes Subjective Date/time seen: 10/25/25 18:47 Interval history: patient is a 75-year-old male who was admitted for further evaluation and treatment of sepsis without septic shock secondary to urinary tract infection presented with altered mental status, fever, and leukocytosis. 10/25/2025: Assumed Care Patient alert and oriented at time of visit last he remembers was early this morning after admission. Patient reports now feeling better and with no complaints. Hematuria resolved and leukocytosis improving. No further fevers and vitals stable. Review of Systems Review of Systems: All systems reviewed & are unremarkable except as noted in HPI and below Exam Const: General: comfortable and no acute distress HENMT: Mouth: Yes moist mucous membranes Eyes: General: appearance normal, both eyes and all related structures Sclera: sclerae normal Pupils: Equal, round and reactive pupils present Neck: Neck: supple Resp: Effort & Inspection: normal respiratory effort Auscultation: clear to auscultation bilaterally Cardio: Rate: regular rate Rhythm: regular rhythm GI: GI Palp: Yes Soft to palpation Auscultation: normal bowel sounds Urinary Catheter: Urinary Catheter: patent and draining and urine clear Skin: General skin exam: normal color and no rashes or lesions noted Wounds: wounds noted (sacral wound) Neuro: Speech: normal speech Sensory Exam: normal sensation Extrem: General: normal to inspection Psych: Mental Status: mental status grossly normal Affect: normal affect Objective Data Vital Signs Vital Signs: Vital Signs - 24 hr 10/24/25 20:00 10/24/25 22:26 10/25/25 00:00 Temperature 100.7 F H 97.6 F 98.8 F Pulse Rate 83 75 Respiratory Rate 16 16 Blood Pressure 114/59 L 138/59 L Pulse Oximetry 96 99 10/25/25 04:00 10/25/25 06:32 10/25/25 13:44 Temperature 100.9 F H 99.2 F 97.3 F L Pulse Rate 78 73 Respiratory Rate 18 19 Blood Pressure 149/62 H 131/55 L Pulse Oximetry 97 97 Intake/Output Intake/Output: Intake & Output 10/22/25 10/23/25 10/24/25 10/25/25 23:59 23:59 23:59 23:59 Intake Total 962.5 2402.9 Output Total 825 2150 Balance 137.5 252.9 Meds/Results Medications: Active Medications Generic Name Dose Route Start Last Admin Trade Name Freq PRN Reason Stop Dose Admin Acetaminophen 650 mg 10/24/25 13:57 Acetaminophen 325 Mg Tablet PO Q4H PRN Mild Pain (1-3) or Fever Apixaban 5 mg 10/24/25 21:00 Apixaban 5 Mg Tablet PO On Hold: 10/25/25 10:02 Q12HR FENG Resume: 10/26/25 09:00 Baclofen 10 mg 10/24/25 17:00 10/25/25 16:34 Baclofen 10 Mg Tablet PO 10 mg BID FENG Administration Cyanocobalamin 1,000 mcg 10/25/25 09:00 Cyanocobalamin 1,000 Mcg Tablet PO DAILY [facility] Diclofenac Sodium 1 applic 10/24/25 13:56 Diclofenac Sodium 1% 100 Gm Gel (*Bkc) TOPICAL DAILY PRN Pain Duloxetine HCl 30 mg 10/24/25 17:00 10/25/25 16:34 Duloxetine Hcl 30 Mg Capsule.Dr PO 30 mg BID FENG Administration Finasteride 5 mg 10/25/25 09:00 Finasteride 5 Mg Tablet PO DAILY [facility] Gabapentin 800 mg 10/24/25 17:00 10/25/25 16:34 Gabapentin 400 Mg Capsule PO 800 mg TID FENG Administration Guaifenesin 600 mg 10/25/25 17:00 10/25/25 16:34 Guaifenesin 12 Hr 600 Mg Tabcr PO 600 mg BID FENG Administration Sodium Chloride 1,000 mls @ 125 mls/hr 10/24/25 12:25 10/25/25 09:26 Normal Saline Iv IV CONT 125 mls/hr .Q8H FENG Administration Meropenem 1 gm/ Sodium 100 mls @ 200 mls/hr 10/25/25 12:00 10/25/25 11:57 Chloride IVPB 200 mls/hr Q8H [facility]ENG Administration Lidocaine 1 patch 10/25/25 10:10 10/25/25 11:52 Lidocaine 5% Patch TRANSDERM 1 patch DAILY [facility]ENG Administration Methocarbamol 1,500 mg 10/24/25 17:00 10/25/25 16:34 Methocarbamol 750 Mg Tablet PO 1,500 mg QID [facility]ENG Administration Ondansetron HCl 4 mg 10/24/25 12:22 Ondansetron Inj 4 Mg/2 Ml Vial IV PUSH Q4H PRN Nausea Oxycodone HCl 10 mg 10/24/25 13:56 10/25/25 11:02 Oxycodone Hcl (*Crx) 5 Mg Tab Ir PO 10 mg Q6H PRN Administration Pain 7-10 Pantoprazole Sodium 40 mg 10/25/25 09:00 Pantoprazole 40 Mg Tablet PO DAILY [facility] Tamsulosin HCl 0.4 mg 10/24/25 21:00 10/24/25 21:36 Tamsulosin Hcl 0.4 Mg Capsule PO Not Given HS [facility]ENG Labs Labs: Laboratory Results - last 24 hr 10/25/25 06:25 WBC 13.5 H RBC 3.51 L Hgb 9.4 L D Hct 30.5 L MCV 86.9 MCH 26.8 MCHC 30.8 L RDW 15.5 H Plt Count 243 MPV 9.2 Immature Gran % (Auto) 0.4 Neut % (Auto) 73.6 H Lymph % (Auto) 12.3 L [place] % (Auto) 13.3 H Eos % (Auto) 0.2 Baso % (Auto) 0.2 Lymph # (Auto) 1.66 [place] # (Auto) 1.8 H Eos # (Auto) 0.0 Baso # (Auto) 0.0 Abs Immat Gran (auto) 0.05 H Absolute Neuts (auto) 9.9 H Absolute Nucleated RBC 0.000 Nucleated RBC % 0.0 PT 18.0 H INR 1.5 APTT 40.9 H Sodium 139 Potassium 3.8 Chloride 113 H Carbon Dioxide 23 Anion Gap 3 L BUN 24 H Creatinine 1.07 Estim Creat Clear Calc 64 Estimated GFR > 60 Glucose 120 H Lactic Acid 1.5 Calcium 9.1 Total Bilirubin 0.4 AST 16 L ALT 12 Alkaline Phosphatase 72 Total Protein 5.7 L Albumin 3.2 L Attestation: I personally reviewed all lab results Quality VTE Prophylaxis VTE prophylaxis: mechanical ordered and pharmacologic ordered -Patient's previous records reviewed on admission -ER notes reviewed in detail on admission -discussed all findings and current treatment plan with patient/Family/POA -Consultations reviewed for recommendations -Patient's disposition for safe discharge discussed with lead case manager -radiology imaging, EKG and test results I have personally reviewed and interpreted unless otherwise specified Dictation performed by [email or web address] direct speech recognition software, therefore dental equipment technician variants and typographical errors may occur. Hospitalist MIPS Advance Care Plan I have confirmed that the patient's Advanced Care Plan is present, code status is documented, or surrogate decision maker is listed in patient medical record.: Yes Medication Reconciliation I have utilized all available resources to obtain, update and review the patients current medications (includes all prescriptions, OTC, herbals, cannabis, and nutritional supplements).: Yes The patient is not eligible for med reconciliation; the patient is in a emergent medical situation where delaying treatment would jeopardize the patients health.: No
[2025-10-25 20:00] VITALS: BP 117/53; PULSE 67; RESP 18; TEMP 37.1; O2SAT 99
[2025-10-25] MEDS: TAMSULOSIN HCL 0.4 MG CAPSULE PO (20:53)
[2025-10-25 23:56] VITALS: BP 124/58; PULSE 68; RESP 16; TEMP 36.8; O2SAT 95
[2025-10-26 04:00] VITALS: BP 141/65; PULSE 67; RESP 16; TEMP 36.6; O2SAT 96
[2025-10-26] MEDS: MEROPENEM 1 GM in SODIUM CHLORIDE 0.9% IV 100 ML 200 ML IVPB ×3 (04:23→20:54)
[2025-10-26] MEDS: SODIUM CHLORIDE 0.9% IV 1,000 ML 125 ML IV CONT ×2 (07:19→16:24)
--- NOTE | 2025-10-26 07:39 | PCWOUND ---
WOCN NOTE Received referral for sacrum wound consult. Patient was assessed on admission on 10-24-25. Wound care orders are entered.
[2025-10-26 08:00] VITALS: BP 165/75; PULSE 61; RESP 16; TEMP 36.2; O2SAT 98
[2025-10-26] MEDS: guaiFENesin 12 HR 600 MG TABCR PO ×2 (08:07→16:24)
[2025-10-26] MEDS: ONDANSETRON INJ 4 MG/2 ML VIAL IV PUSH (08:07)
[2025-10-26] MEDS: GABAPENTIN 400 MG CAPSULE 800 MG PO ×3 (08:07→16:23)
[2025-10-26] MEDS: PANTOPRAZOLE 40 MG TABLET PO (08:07)
[2025-10-26] MEDS: CYANOCOBALAMIN 1,000 MCG TABLET 1000 MCG PO (08:07)
[2025-10-26] MEDS: BACLOFEN 10 MG TABLET PO ×2 (08:07→16:24)
[2025-10-26] MEDS: FINASTERIDE 5 MG TABLET PO (08:07)
[2025-10-26] MEDS: oxyCODONE HCL (*CRX) 5 MG TAB IR 10 MG PO (08:08)
[2025-10-26] MEDS: LIDOCAINE 5% PATCH 1 PATCH TRANSDERM (08:09)
--- NOTE | 2025-10-26 08:55 | P.PNIM_ITS ---
Assessment and Plan Assessment and Plan (1) Sepsis without septic shock: Code(s): A41.9 - Sepsis, unspecified organism Status: Acute Assessment and Plan: Sepsis secondary to UTI, fever, leukocytosis, lactic acidosis, AMS * IV fluids * IV ceftriaxone changed to meropenem * Lactic acidosis resolved * Blood cultures pending * UA pending (2) Urinary tract infection: Qualifiers: Indwelling urinary catheter type: indwelling urethral catheter Urinary tract infection type: catheter-associated UTI Code(s): N39.0 - Urinary tract infection, site not specified Status: Acute Assessment and Plan: HX recurrent UTI's secondary to chronic indwelling fonseca catheter hematuria POA no clots * Urology consulted * meropenem IV Q8hr based off previous UA culture sensitivities * Culture and sensitivity pending * Blood cultures pending * Catheter changed in the ED (3) Hematuria: Code(s): R31.9 - Hematuria, unspecified Status: Acute Assessment and Plan: * Resolved * Resumed Eliquis (4) Neurogenic dysfunction of the urinary bladder: Code(s): N31.9 - Neuromuscular dysfunction of bladder, unspecified Status: Acute Assessment and Plan: * Chronic Fonseca exchange in ED * Urology following (5) CKD (chronic kidney disease): Code(s): N18.9 - Chronic kidney disease, unspecified Status: Acute Assessment and Plan: Creatinine at baseline * gentle IV fluid * avoid nephrotoxins * trend renal function (6) Benign prostatic hyperplasia: Qualifiers: Lower urinary tract symptom detail: urinary retention Lower urinary tract symptom presence: symptoms present Qualified Code(s): N40.1 - Benign prostatic hyperplasia with lower urinary tract symptoms; R33.8 - Other retention of urine Code(s): N40.0 - Benign prostatic hyperplasia without lower urinary tract symptoms Status: Acute Assessment and Plan: * Continue Proscar and Flomax (7) Paraplegia, incomplete: Code(s): G82.22 - Paraplegia, incomplete Status: Acute Assessment and Plan: * Continue baclofen, Neurontin, Robaxin, oxycodone * Specialty bed (8) Sacral wound: Code(s): S31.000A - Unspecified open wound of lower back and pelvis without penetration into retroperitoneum, initial encounter Status: Acute Assessment and Plan: * Wound consulted * Daily wound care ordered * offload * Q2 hr turns * wound consulted * specialty bed (9) History of DVT (deep vein thrombosis): Code(s): Z86.718 - Personal history of other venous thrombosis and embolism Status: Acute Assessment and Plan: * continued Eliquis Plan Code status: Full code per patient DVT prophylaxis: Eliquis Stress ulcer prophylaxis: NA PT/OT notes: Bedbound/SNF Disposition: patient continues admission to the medical unit for sepsis secondary to urinary tract infection will continue with current IV antibiotics pending final cultures and sensitivities patient's hematuria has resolved urology is following once patient is medically stable plan will be to return to a halfway facility. Medical Record Review I have reviewed the following patient records and this information was taken into consideration when formulating the assessment and plan.: previous labs, previous ER visits, previous hospitalizations and previous clinic visits Consultations Consultations: I have discussed the care of this pt with the consulting providers. Time Spent With Patient Time with patient: 15 - 25 minutes Subjective Date/time seen: 10/26/25 08:55 Interval history: patient is a 75-year-old male who was admitted for further evaluation and treatment of sepsis without septic shock secondary to urinary tract infection presented with altered mental status, fever, and leukocytosis. 10/26/2025: Patient reported episode of pain all over this am with diaphoresis and nausea did receive Zofran and pain medication with relief. Patient is comfortable at time of my assessment denied any CP, SOB, N/V. Review of Systems Review of Systems: All systems reviewed & are unremarkable except as noted in HPI and below ROS unobtainable: Yes unobtainable due to mental status Exam Const: General: comfortable and no acute distress HENMT: Mouth: Yes moist mucous membranes Eyes: General: appearance normal, both eyes and all related structures Sclera: sclerae normal Pupils: Equal, round and reactive pupils present Neck: Neck: supple Resp: Effort & Inspection: normal respiratory effort Auscultation: clear to auscultation bilaterally Cardio: Rate: regular rate Rhythm: regular rhythm GI: Auscultation: normal bowel sounds Urinary Catheter: Urinary Catheter: patent and draining and urine clear Skin: General skin exam: normal color, no rashes or lesions noted and wounds noted (sacral wound) Wounds: wounds noted (sacral wound) Neuro: Cranial nerves: Yes Equal, round and reactive pupils present Speech: normal speech Sensory Exam: normal sensation Extrem: General: normal to inspection Psych: Mental Status: mental status grossly normal Affect: normal affect Objective Data Vital Signs Vital Signs: Vital Signs - 24 hr 10/25/25 13:44 10/25/25 20:00 10/25/25 23:56 Temperature 97.3 F L 98.7 F 98.3 F Pulse Rate 73 67 68 Respiratory Rate 19 18 16 Blood Pressure 131/55 L 117/53 L 124/58 L Pulse Oximetry 97 99 95 10/26/25 04:00 10/26/25 08:00 Temperature 97.8 F 97.1 F L Pulse Rate 67 61 Respiratory Rate 16 16 Blood Pressure 141/65 H 165/75 H Pulse Oximetry 96 98 Intake/Output Intake/Output: Intake & Output 10/23/25 10/24/25 10/25/25 10/26/25 23:59 23:59 23:59 23:59 Intake Total 962.5 3602.9 1400 Output Total 825 2150 1000 Balance 137.5 1452.9 400 Meds/Results Medications: Active Medications Generic Name Dose Route Start Last Admin Trade Name Freq PRN Reason Stop Dose Admin Acetaminophen 650 mg 10/24/25 13:57 Acetaminophen 325 Mg Tablet PO Q4H PRN Mild Pain (1-3) or Fever Apixaban 5 mg 10/24/25 21:00 Apixaban 5 Mg Tablet PO On Hold: 10/25/25 10:02 Q12HR FENG Resume: 10/26/25 08:59 Baclofen 10 mg 10/24/25 17:00 10/26/25 08:07 Baclofen 10 Mg Tablet PO 10 mg BID FENG Administration Cyanocobalamin 1,000 mcg 10/25/25 09:00 10/26/25 08:07 Cyanocobalamin 1,000 Mcg Tablet PO 1,000 mcg DAILY [facility]ENG Administration Diclofenac Sodium 1 applic 10/24/25 13:56 Diclofenac Sodium 1% 100 Gm Gel (*Bkc) TOPICAL DAILY PRN Pain Duloxetine HCl 30 mg 10/24/25 17:00 10/26/25 08:07 Duloxetine Hcl 30 Mg Capsule.Dr PO 30 mg BID FENG Administration Finasteride 5 mg 10/25/25 09:00 10/26/25 08:07 Finasteride 5 Mg Tablet PO 5 mg DAILY [facility]ENG Administration Gabapentin 800 mg 10/24/25 17:00 10/26/25 08:07 Gabapentin 400 Mg Capsule PO 800 mg TID FENG Administration Guaifenesin 600 mg 10/25/25 17:00 10/26/25 08:07 Guaifenesin 12 Hr 600 Mg Tabcr PO 600 mg BID FENG Administration Sodium Chloride 1,000 mls @ 125 mls/hr 10/24/25 12:25 10/26/25 07:19 Normal Saline Iv IV CONT 125 mls/hr .Q8H FENG Administration Meropenem 1 gm/ Sodium 100 mls @ 200 mls/hr 10/25/25 12:00 10/26/25 04:23 Chloride IVPB 200 mls/hr Q8H FENG Administration Lidocaine 1 patch 10/25/25 10:10 10/26/25 08:09 Lidocaine 5% Patch TRANSDERM 1 patch DAILY [facility] Administration Methocarbamol 1,500 mg 10/24/25 17:00 10/26/25 08:07 Methocarbamol 750 Mg Tablet PO 1,500 mg QID FENG Administration Ondansetron HCl 4 mg 10/24/25 12:22 10/26/25 08:07 Ondansetron Inj 4 Mg/2 Ml Vial IV PUSH 4 mg Q4H PRN Administration Nausea Oxycodone HCl 10 mg 10/24/25 13:56 10/26/25 08:08 Oxycodone Hcl (*Crx) 5 Mg Tab Ir PO 10 mg Q6H PRN Administration Pain 7-10 Pantoprazole Sodium 40 mg 10/25/25 09:00 10/26/25 08:07 Pantoprazole 40 Mg Tablet PO 40 mg DAILY [facility]ENG Administration Tamsulosin HCl 0.4 mg 10/24/25 21:00 10/25/25 20:53 Tamsulosin Hcl 0.4 Mg Capsule PO 0.4 mg HS FENG Administration Labs Attestation: I personally reviewed all lab results Quality VTE Prophylaxis VTE prophylaxis: mechanical ordered and pharmacologic ordered -Patient's previous records reviewed on admission -ER notes reviewed in detail on admission -discussed all findings and current treatment plan with patient/Family/POA -Consultations reviewed for recommendations -Patient's disposition for safe discharge discussed with case sealer -radiology imaging, EKG and test results I have personally reviewed and interpreted unless otherwise specified Dictation performed by [employer] direct speech recognition software, therefore strategy specialist variants and typographical errors may occur. Hospitalist MIPS Advance Care Plan I have confirmed that the patient's Advanced Care Plan is present, code status is documented, or surrogate decision maker is listed in patient medical record.: Yes Medication Reconciliation I have utilized all available resources to obtain, update and review the patients current medications (includes all prescriptions, OTC, herbals, cannabis, and nutritional supplements).: Yes The patient is not eligible for med reconciliation; the patient is in a emergent medical situation where delaying treatment would jeopardize the patients health.: No
[2025-10-26 09:21] LABS: Hematocrit 29.5 % (42.0-52.0); Hemoglobin 9.0 g/dL (14.0-18.0); Mean Corpuscular HGB Conc 30.5 g/dl (32-36); Mean Corpuscular Hemoglobin 27.3 pg (26-34); Mean Corpuscular Volume 89.4 fl (80-100); Platelet Count Result 211 k/mm3 (150-375); Red Blood Count 3.30 M/mm3 (4.6-6.20); White Blood Count 9.5 K/mm3 (4.5-10.0)
[2025-10-26 09:24] VITALS: O2SAT 95
[2025-10-26 09:50] LABS: Alanine Aminotransferase 9 U/L (6-50); Albumin Level 3.1 g/dL (3.5-5.1); Alkaline Phosphatase 62 U/L (38-126); Anion Gap 3 mmol/L (4-12); Aspartate Amino Transferase 17 U/L (17-59); Bilirubin,Total 0.3 mg/dL (0.2-1.3); Blood Urea Nitrogen 15 mg/dL (9-20); Calcium 8.7 mg/dL (8.4-10.2); Carbon Dioxide 23 mmol/L (22-30); Chloride 112 mmol/L (98-107); Estimated CRCL calculation 76 ml/min; Estimated Glomerular Filt Rate > 60; Glucose 111 mg/dL (65-110); Magnesium 1.8 mg/dL (1.6-2.3); Potassium 3.7 mmol/L (3.4-5.0); Sodium 138 mmol/L (137-145); Total Protein 5.7 g/dL (6.3-8.2)
[2025-10-26] MEDS: APIXABAN 5 MG TABLET PO ×2 (10:36→20:54)
[2025-10-26 11:48] VITALS: BP 134/60; PULSE 67; RESP 16; O2SAT 98
[2025-10-26] MEDS: LIDOCAINE 5% PATCH 3 PATCH TRANSDERM (14:49)
[2025-10-26 16:00] VITALS: BP 119/57; PULSE 57; O2SAT 98
[2025-10-26 20:00] VITALS: BP 143/71; PULSE 60; RESP 14; TEMP 36.4; O2SAT 93
[2025-10-26] MEDS: TAMSULOSIN HCL 0.4 MG CAPSULE PO (20:55)
[2025-10-27] VITALS: BP 152/64; PULSE 64; RESP 14; TEMP 36.6; O2SAT 99
[2025-10-27] MEDS: SODIUM CHLORIDE 0.9% IV 1,000 ML 125 ML IV CONT ×2 (00:50→08:51)
[2025-10-27] MEDS: oxyCODONE HCL (*CRX) 5 MG TAB IR 10 MG PO ×2 (03:24→11:33)
[2025-10-27] MEDS: MEROPENEM 1 GM in SODIUM CHLORIDE 0.9% IV 100 ML 200 ML IVPB ×2 (03:25→11:34)
[2025-10-27 04:00] VITALS: BP 134/69; PULSE 59; RESP 14; TEMP 36.7; O2SAT 94
[2025-10-27 06:30] LABS: Hematocrit 29.4 % (42.0-52.0); Hemoglobin 9.0 g/dL (14.0-18.0); Mean Corpuscular HGB Conc 30.6 g/dl (32-36); Mean Corpuscular Hemoglobin 27.2 pg (26-34); Mean Corpuscular Volume 88.8 fl (80-100); Platelet Count Result 189 k/mm3 (150-375); Red Blood Count 3.31 M/mm3 (4.6-6.20); White Blood Count 8.1 K/mm3 (4.5-10.0)
[2025-10-27 06:57] LABS: Alanine Aminotransferase 10 U/L (6-50); Albumin Level 3.0 g/dL (3.5-5.1); Alkaline Phosphatase 57 U/L (38-126); Anion Gap 4 mmol/L (4-12); Aspartate Amino Transferase 14 U/L (17-59); Bilirubin,Total 0.4 mg/dL (0.2-1.3); Blood Urea Nitrogen 11 mg/dL (9-20); Calcium 8.8 mg/dL (8.4-10.2); Carbon Dioxide 26 mmol/L (22-30); Chloride 110 mmol/L (98-107); Estimated CRCL calculation 71 ml/min; Estimated Glomerular Filt Rate > 60; Glucose 100 mg/dL (65-110); Magnesium 1.8 mg/dL (1.6-2.3); Potassium 3.8 mmol/L (3.4-5.0); Sodium 140 mmol/L (137-145); Total Protein 5.6 g/dL (6.3-8.2)
[2025-10-27 08:00] VITALS: BP 159/79; PULSE 64; RESP 16; TEMP 36.6; O2SAT 98
[2025-10-27] MEDS: APIXABAN 5 MG TABLET PO (08:52)
[2025-10-27] MEDS: FINASTERIDE 5 MG TABLET PO (08:52)
[2025-10-27] MEDS: BACLOFEN 10 MG TABLET PO (08:52)
[2025-10-27] MEDS: GABAPENTIN 400 MG CAPSULE 800 MG PO ×2 (08:52→12:39)
[2025-10-27] MEDS: CYANOCOBALAMIN 1,000 MCG TABLET 1000 MCG PO (08:52)
[2025-10-27] MEDS: guaiFENesin 12 HR 600 MG TABCR PO (08:53)
[2025-10-27] MEDS: LIDOCAINE 5% PATCH 3 PATCH TRANSDERM (08:53)
[2025-10-27 11:37] VITALS: BP 126/71; PULSE 64; RESP 16; TEMP 36.9; O2SAT 98
--- NOTE | 2025-10-27 12:28 | P.DS_ITS ---
DS: Admitting Diagnosis Discharge Date 10/27/2025 Admitting Diagnosis Sepsis without septic shock secondary to UTI DS: Discharge Diagnosis Discharge Diagnosis (1) Sepsis without septic shock: Code(s): A41.9 - Sepsis, unspecified organism Status: Acute (2) Urinary tract infection: Qualifiers: Indwelling urinary catheter type: indwelling urethral catheter Urinary tract infection type: catheter-associated UTI Code(s): N39.0 - Urinary tract infection, site not specified Status: Acute (3) Hematuria: Code(s): R31.9 - Hematuria, unspecified Status: Acute (4) Neurogenic dysfunction of the urinary bladder: Code(s): N31.9 - Neuromuscular dysfunction of bladder, unspecified Status: Acute (5) CKD (chronic kidney disease): Code(s): N18.9 - Chronic kidney disease, unspecified Status: Acute (6) Benign prostatic hyperplasia: Qualifiers: Lower urinary tract symptom detail: urinary retention Lower urinary tract symptom presence: symptoms present Qualified Code(s): N40.1 - Benign prostatic hyperplasia with lower urinary tract symptoms; R33.8 - Other retention of urine Code(s): N40.0 - Benign prostatic hyperplasia without lower urinary tract symptoms Status: Acute (7) Paraplegia, incomplete: Code(s): G82.22 - Paraplegia, incomplete Status: Acute (8) Sacral wound: Code(s): S31.000A - Unspecified open wound of lower back and pelvis without penetration into retroperitoneum, initial encounter Status: Acute (9) History of DVT (deep vein thrombosis): Code(s): Z86.718 - Personal history of other venous thrombosis and embolism Status: Acute DS: Summary Hospital Course Reason for hospitalization: Sepsis secondary to UTI Hospital Course: Admission: 75-year-old male past medical history of paraplegia after spinal surgery, neurogenic bladder, chronic Fonseca sacral wound, DVT, CKD and hyperlipidemia brought in from his assisted living for altered mental status. Patient also has blood tinged urine in his catheter. Per EMS the patient is slower to respond than normal. HPI is limited due to patient's altered mental status.Patient has no complaints. In the ED: Fonseca was exchanged to the emergency room with return of 700 mls of hematuria. Lab work shows leukocytosis at 21.9, hemoglobin of 13.3 with previous hemoglobin being around 8.5, INR 1.2, sodium of 136, BUN of 31, creatinine of 1.34 with baseline being around 0.9, GFR 52, glucose 116, lactic acid 3.3, CRP 5.6, UA is red cloudy with 3+ blood 2+ leukocyte esterase over 100 RBCs over 100 wbc's and 3+ bacteria. EKG shows sinus rhythm. Patient receiving 2 L of NS in the emergency room and started on Rocephin. was consulted no need for CBI at thi s time. Hospital Course: Patient was then admitted to the medical unit for further treatment of sepsis without septic shock secondary to urinary tract infection. Patient with chronic indwelling Fonseca catheter has had multiple occurrences of urinary tract infection initially was placed on Rocephin however I did transition to meropenem IV pending cultures and sensitivities based off previous cultures. Patient was also started on aggressive IV fluids and Eliquis held for hematuria. Patient with overall improvement to symptoms was alert and oriented x4 altered mental s tatus had resolved. Vitals remained stable and leukocytosis resolved other labs unremarkable. Final culture resulted with Proteus mirabilis pansensitive except for Cipro, Macrobid, Zosyn. A transition patient to Augmentin for 4 more days at discharge to complete therapy. Blood cultures remained negative with no growth to date over 72 hours. Patient seen assessed at time of discharge in no acute distress and no further complaints as recommended Fonseca catheter need to be exchanged every 30 days needs to follow up with his urologist as scheduled. Hematuria has resolved Eliquis resumed hemoglobin remained stable. Patient discharged back to group home facility. Status at Discharge Functional status at discharge: bed bound Overall status at discharge: patient is back to baseline Time Spent with Patient Time attestation: Total time spent providing and/or coordinating discharge services: Time spent: Greater than 30 minutes Exam Const: General: comfortable and no acute distress HENMT: Mouth: Yes moist mucous membranes Eyes: General: appearance normal, both eyes and all related structures Sclera: sclerae normal Pupils: Equal, round and reactive pupils present Neck: Neck: supple Resp: Effort & Inspection: normal respiratory effort Auscultation: clear to auscultation bilaterally Cardio: Rate: regular rate Rhythm: regular rhythm GI: Auscultation: normal bowel sounds Urinary Catheter: Urinary Catheter: patent and draining and urine clear Skin: General skin exam: normal color, no rashes or lesions noted and wounds noted (sacral wound) Wounds: wounds noted (sacral wound) Neuro: Cranial nerves: Yes Equal, round and reactive pupils present Speech: normal speech Sensory Exam: normal sensation Extrem: General: normal to inspection Psych: Mental Status: mental status grossly normal Affect: normal affect DS: Data Data Completed and Pending Labs on day of discharge: Labs from last 24 hours 10/27/25 06:24 WBC 8.1 RBC 3.31 L Hgb 9.0 L Hct 29.4 L MCV 88.8 MCH 27.2 MCHC 30.6 L RDW 15.1 H Plt Count 189 MPV 8.7 Sodium 140 Potassium 3.8 Chloride 110 H Carbon Dioxide 26 Anion Gap 4 BUN 11 Creatinine 0.97 Estim Creat Clear Calc 71 Estimated GFR > 60 Glucose 100 Calcium 8.8 Magnesium 1.8 Total Bilirubin 0.4 AST 14 L ALT 10 Alkaline Phosphatase 57 Total Protein 5.6 L Albumin 3.0 L Preliminary micro results at discharge 10/24/25 11:42 Blood Culture - Preliminary Blood 10/24/25 11:45 Blood Culture - Preliminary Blood Discharge Plan Discharge Attending physician on discharge: Mikal Bates Consulting providers: Adrianne Mccord Discharging Clinician: Adrianne Mccord Anticipated Discharge Date/Time: 10/27/25 12:31 Patient Disposition: NH Care Home/Asst Living Activity: as tolerated Diet: heart healthy Wound Care Instructions: other - see discharge instructions Discharge Instructions: 1). UTI * I have prescribed oral antibiotic please complete as indicated * recommend fonseca catheter exchange every 30 days. * Follow-up with Urology as scheduled 2). Sacral Wound * Cleanse sacral ulcer with Wound cleanser spray, then lightly fill wound bed with Aquacel Ag rope, cover with a foam border dressing. Change Daily or when soiled * offloading Q2hr turns How can you care for yourself at home? ? Keep track of any new symptoms or changes in your symptoms. ? Rest until you feel better. ? Be safe with medicines. Take your medicines exactly as prescribed. Call your doctor if you think you are having a problem with your medicine. ? Do not drive after taking a prescription pain medicine. ? Ensure to follow-up with primary care physician as indicated and provide updated medication list provided to you at discharge. When should you call for help? Call 911 anytime you think you may need emergency care. For example, call if: ? You passed out (lost consciousness). Call your doctor now or seek immediate medical care if: ? You have new symptoms like fever, difficulty breathing, Chest pain, vomiting, or rash. ? You have new or different pain. ? You are confused and are having trouble thinking clearly. ? Your symptoms are getting worse. Watch closely for changes in your health, and be sure to contact your doctor if: ? You do not get better as expected. Patient Instructions: Antibiotic Form, Apixaban (By mouth), Fonseca Catheter Placement and Care (DC), Catheter-associated Urinary Tract Infection (DC), Chronic Wounds (DC) Patient Language: Bur[place]ian Stand Alone Forms: General Discharge Information, Residential Discharge Follow-up/Referrals: Marcelino,MD Sj [Primary Care Provider, Unknown] - Keep Reg. Scheduled Appt. Discharge Medications: New amoxicillin-pot clavulanate 875-125 mg tablet 1 tablet PO Q12H Qty: 8 0RF Continued duloxetine 30 mg capsule,delayed release(DR/EC) 30 mg PO BID gabapentin 300 mg capsule 800 mg PO TID methocarbamol 750 mg tablet 1,500 mg PO QID Rx Instructions: two 750mg tabs to equal 1,500mg total dose diclofenac sodium [Aspercreme Arthritis Pain] 1 % gel 2 g topical DAILY PRN (Reason: pain) Rx Instructions: apply to single elbow, wrist or hand; for hand includes palm/fingers/back of hand Gurpreet (with collagen) 7-7-1.5 gram powder in packet 1 packet PO BID Rx Instructions: mix 1 packet with 8-10 oz liquid guaifenesin [Mucinex] 600 mg tablet extended release 12hr 600 mg PO BID cyanocobalamin (vitamin B-12) 1,000 mcg capsule 1,000 mcg PO DAILY naloxone 0.4 mg/mL syringe 0.4 mg IM Q2M PRN (Reason: opioid reversal) Rx Instructions: NTExceed 10 mg total dose/episode baclofen 10 mg tablet 10 mg PO BID oxycodone 5 mg Tablet 10 mg PO Q6H PRN (Reason: Pain) Qty: 10 0RF Patient Comments: DOSE 10 MG acetaminophen 500 mg 2 tablet BYMOUTH TID Florastor 250 mg capsule 1 cap PO DAILY tamsulosin 0.4 mg capsule 0.4 mg PO HS Qty: 30 0RF finasteride 5 mg tablet 5 mg PO DAILY Qty: 30 0RF apixaban 5 mg Tablet 5 mg PO BID Qty: 60 0RF Changed lidocaine [Lidocaine Pain Relief] 4 % Adhesive Patch,Medicated 3 patch transdermal Q12H Qty: 5 0RF Patient Comments: APPLY TO LEFT SHOULDER Discontinued pantoprazole 40 mg tablet,delayed release (DR/EC) 40 mg PO DAILY Date of admission: 10/25/25 09:53 Primary Care Provider: Marcelino,[facility] Admitting Provider: Mikal Bates Attending physician on admission: Mikal Bates Condition: Stable Quality VTE Prophylaxis VTE prophylaxis: mechanical ordered and pharmacologic ordered -Patient's previous records reviewed on admission -ER notes reviewed in detail on admission -discussed all findings and current treatment plan with patient/Family/POA -Consultations reviewed for recommendations -Patient's disposition for safe discharge discussed with disease case manager -radiology imaging, EKG and test results I have personally reviewed and interpreted unless otherwise specified Dictation performed by [employer] direct speech recognition software, therefore streets and buildings decorator variants and typographical errors may occur. Hospitalist MIPS Heart Failure (Exclusion) Patient has history of Heart Transplant or Left Ventricular Assistive Device?: No IF YES, STOP HERE Heart Failure (Qualifier) Patient has current or prior documentation of LVEF less than or equal to 40%, or mod/servere depressed LVSF?: No IF NO, STOP HERE
== END 2025-10-27 16:20 | DRG 698 ==
LOC: ANHED 12:22 → ANH3MEDSUR 13:21
PROVIDERS: Nurse Practitioner Gerontology; Admitting Provider Family Medicine; Emergency Provider Nurse Practitioner Family; PCP Family Medicine; Visit Provider Nurse Practitioner Family
DX: T83.511A Infection and inflammatory reaction due to indwelling urethral catheter, initial encounter (principal); A41.9 Sepsis, unspecified organism; L89.154 Pressure ulcer of sacral region, stage 4; G82.22 Paraplegia, incomplete; G95.9 Disease of spinal cord, unspecified; K59.2 Neurogenic bowel, not elsewhere classified; N39.0 Urinary tract infection, site not specified; N18.9 Chronic kidney disease, unspecified; N31.9 Neuromuscular dysfunction of bladder, unspecified; N40.0 Benign prostatic hyperplasia without lower urinary tract symptoms; Q06.8 Other specified congenital malformations of spinal cord; Z86.718 Personal history of other venous thrombosis and embolism; Z85.51 Personal history of malignant neoplasm of bladder; Z96.82 Presence of neurostimulator; Z98.1 Arthrodesis status; Z79.01 Long term (current) use of anticoagulants
CPT/HCPCS: 36415; 80053; 81001; 82948; 83605; 83735; 84484; 85025; 85027; 85610; 85652; 85730; 86140; 87040; 87086; 87186; 92610; 93005; 96365; 99212; 99285; A9270; G0378; G0463; J0696; J2185; J2405; J7030